=== PATIENT | male | born 1960 | race Caucasian/White ===

== ENCOUNTER 2022-09-13 10:22 | Outpatient (CLI) | payer SELFPAY | END 2022-09-13 10:23 | disposition home or self-care (01) | LOC: AMB 10-01 11:47 | PROVIDERS: Visit Provider Family Medicine | DX: R11.2 Nausea with vomiting, unspecified (principal) | CPT/HCPCS: A0998 ==

== ENCOUNTER 2023-01-08 13:40 | Outpatient (CLI) | payer BC, SELFPAY ==
--- NOTE | 2023-01-08 14:00 | CRLHL7_ITS ---
For Patients: As a result of the Century Cures Act, medical imaging exams and procedure reports are released immediately into your electronic medical record. You may view this report before your referring provider. If you have questions, please contact your health care provider. CLINICAL HISTORY: Renal mass COMPARISON: none TECHNIQUE: Dominguez scale and color Doppler images were acquired of the kidneys and urinary bladder. FINDINGS: There is a persistent irregular masslike area of hypoechoic echotexture involving the lower pole of the right kidney measuring 2.3 cm. No hydronephrosis. This does not represent a simple cyst. Right kidney measures 13.1 cm. Left kidney measures 13.7 cm. Renal cortex is normal. The bladder is normal. The prostate measures 3.8 x 3.7 x 4.1 cm. IMPRESSION: Persistent irregular masslike area of hypoechoic tissue involving the lower pole of the right kidney. Dictated by Bruce Lao MD @ 01/08/2023 3:10:28 PM (Electronically Signed)
== END 2023-01-08 13:41 | disposition home or self-care (01) ==
PROVIDERS: PCP Family Medicine; Visit Provider Urology
DX: N28.89 Other specified disorders of kidney and ureter (principal)
CPT/HCPCS: 76770

== ENCOUNTER 2023-04-09 12:05 | Outpatient (CLI) | payer BC, SELFPAY ==
--- NOTE | 2023-04-09 12:15 | CRLHL7_ITS ---
For Patients: As a result of the Century Cures Act, medical imaging exams and procedure reports are released immediately into your electronic medical record. You may view this report before your referring provider. If you have questions, please contact your health care provider. INDICATION: Malignant tumor of right kidney TECHNIQUE: Ultrasound renal and bladder complete. Dominguez-scale and color Doppler sonographic images of the kidneys and urinary bladder were acquired. COMPARISON: 01/08/2023 renal ultrasound FINDINGS: Right kidney:Normal cortical echogenicity. Stable 2.4 x 1.6 x 1.7 cm mass in the lower pole hilum. No hydronephrosis. 12.9 cm pole to pole. Left kidney:Normal cortical echogenicity. No solid renal mass. No hydronephrosis.12.9 cm pole to pole. Bladder: Incompletely distended and mildly thick walled. IMPRESSION: 1. Stable 2.4 x 1.6 x 1.7 cm right renal mass. Dictated by Domingo Becerra MD @ 04/10/2023 12:54:13 PM (Electronically Signed)
== END 2023-04-09 12:06 | disposition home or self-care (01) ==
LOC: US 12:05
PROVIDERS: PCP Internal Medicine; Visit Provider Urology
DX: C64.9 Malignant neoplasm of unspecified kidney, except renal pelvis (principal)
CPT/HCPCS: 76775

== ENCOUNTER 2023-05-01 15:21 | Outpatient (CLI) | payer BC, SELFPAY | END 2023-05-01 15:22 | disposition home or self-care (01) | LOC: NFLDREF 15:22 | PROVIDERS: PCP Internal Medicine; Visit Provider Internal Medicine | DX: I50.9 Heart failure, unspecified (principal) | CPT/HCPCS: 80048 ==

== ENCOUNTER 2023-06-18 14:02 | Outpatient (CLI) | payer BC, SELFPAY | END 2023-06-18 14:03 | disposition home or self-care (01) | LOC: NFLDREF 14:03 | PROVIDERS: PCP Internal Medicine; Visit Provider Internal Medicine | DX: E11.9 Type 2 diabetes mellitus without complications (principal) | CPT/HCPCS: 80053 ==

== ENCOUNTER 2023-07-04 14:38 | Outpatient (CLI) | payer BC, SELFPAY | END 2023-07-04 14:39 | disposition home or self-care (01) | LOC: NFLDREF 14:39 | PROVIDERS: PCP Internal Medicine; Visit Provider Internal Medicine | DX: I50.22 Chronic systolic (congestive) heart failure (principal); Z13.228 Encounter for screening for other metabolic disorders | CPT/HCPCS: 80048 ==

== ENCOUNTER 2023-07-18 12:52 | Outpatient (CLI) | payer BC, SELFPAY ==
[2023-07-18] MEDS: PERFLUTREN LIPID MICROSPHERES 2 ML VIAL IV (14:00)
== END 2023-07-18 12:53 | disposition home or self-care (01) ==
LOC: RAD 12:53
PROVIDERS: PCP Internal Medicine; Visit Provider Internal Medicine
DX: I50.9 Heart failure, unspecified (principal); I35.1 Nonrheumatic aortic (valve) insufficiency; I51.7 Cardiomegaly
CPT/HCPCS: 93306; Q9957

== ENCOUNTER 2023-09-18 13:42 | Outpatient (CLI) | payer BC, SELFPAY ==
--- OUTSIDE RECORDS SUMMARY | 2023-09-18 13:46 | XMS_ITS | Encounter Summary ---
Author Organization [facility] Address [address] [place] [address] Care Team Providers Care Certified Registered Locksmith Name Role Phone Roopa Almonte MD Unavailable [phone] Maryse Burton PA-C Unavailable Roopa Almonte MD Unavailable [phone] Griffin Joshi MD Unavailable Paula Reza MD Primary Care Provider [phone] Roopa Almonte MD Unavailable [phone] Augustine Callaway MD Unavailable Daylin Ludwig Unavailable Daylin Ludwig Unavailable [phone] Marilin Montaño SAMPLE TESTER GRINDER Unavailable [phone] Esha Dewitt MD Unavailable [phone] Heather Mosquera MD Unavailable [phone] Paula Reza MD Unavailable Esha Dewitt MD Unavailable [phone] Valdo EscamillaC Unavailable [phone] Nohelia Abarca PA-C Unavailable [phone] Heather Mosquera MD Unavailable Fawad York MD Unavailable Reason for Visit * Reason Onset Date Comments Medication Request 10/20/2022 amiodarone (P ACERONE) 200 MG tablet [[id number]] Encounter Details Date Type Department Care Team (Late st Contact Info) Description 10/20/2022 Telephone [facility] [address] [place] [phone] Griffin Joshi MD [address] [facility] [address] [place] [address] Medication Request (/amiodarone (PACERONE) 200 MG tablet [[id number]] /) Social History Tobacco Use Types Packs/Day Years Used Date Smoking Tobacco: Former Cigarettes Q uit: 12/09/2006 Cigars Passive Smoke Exposure: Never Smokeless Tobacco: Never Alcohol Use Standard Drinks/Week Comments Not Currently 0 (1 standard drink = 0.6 oz pur e alcohol) Overall Financial Resource Strain (CARDIA) Answe r Date Recorded How hard is it for you to pa y for the very basics like food, housing, medical care, and heating? Not hard at all 07/29/2021 PHQ-2 Answer Date Recorded PHQ-2 Score 0 10/04/2022 Hunger Vital Sign Answer Date Recorded Within the past 12 months, y ou worried that your food would run out before you got the money to buy more. Never true 07/30/19 22 Within the past 12 months, t he food you bought just didn't last and you didn't have money to get more. Never true 07/29/2021 PRAPARE - Transportation Answer Date Re corded In the past 12 months, has l ack of transportation kept you from medical appointments or from getting medications? No 07/04 In the past 12 months, has l ack of transportation kept you from meetings, work, or from getting things needed for daily living? No 07/29/2021 Sex and Gender Information Value Date Recorded Sex Assigned at Male 09/20/2020 8:37 AM CDT Gender Identity Male 09/20/2020 8:37 AM CDT Sexual Orientation Straight 09/20/2020 8: 37 AM CDT COVID-19 Exposure Response Date Recorded In the last 10 days, have yo u been in contact with someone who was confirmed or suspected to have Coronavirus/COVID-19? No / Unsure 10/12/2022 7:53 AM CDT documented as of this encounter Miscellaneous Notes * Telephone Encounter - Natalia Mendez - 10/20/2022 11:14 AM CDT [facility] Phone Message May a detailed message be left on voicemail: yes Reason for Call: Medication Refill Request Has the patient contacted the pharmacy for the refill? Yes Name of medication being requested: amiodarone (PACERONE) 200 MG tablet [[id number]] Provider who prescribed the medication: Dr Joshi Pharmacy: [id number] - [place], [place] - [address] [place] [address] AT [address] Date medication is needed: 10/24/2022 Action Taken: Other: cardio Travel Screening: Not Applicable Thank you! [facility] documented in this encounter Plan of Treatment Not on file documented as of this encounter Goals Goal Patient Goal Type Associated Problems Recent Progress Patient-Stated? Author Establish Regular Follow-Ups with PCP Care Plan HbA1C Not In Goal No Angelita Pemberton RD Get HbA1C Level in Goal Care Plan HbA1C Not In Goal Angelita Diaz RD Understand diabetes pathophysiology and disease progression Care Plan Diabetes Self-Management Education Needed to Optimize Self-Care Behaviors Angelita Diaz RD Healthy Eating - follow a healthy eating pattern for diabetes Care Plan Diabetes Self-Management Education Needed to Optimize Self-Care Behaviors Angelita Diaz RD Being Active - get regular physical activity, working up to at least 150 minutes per week Care Plan Diabetes Self-Management Education Needed to Optimize Self-Care Behaviors Angelita Diaz RD Monitoring - monitor glucose and ketones as directed Care Plan Diabetes Self-Management Education Needed to Optimize Self-Care Behaviors 90%(03/23/19 23 3:12 PM CONCRETE FLOATER) No Angelita Pemberton RD Note: I will check my blood sugars 3x per day at meal times Taking Medication - patient is consistently taking medications as directed Care Plan Diabetes Self-Management Education Needed to Optimize Self-Care Behaviors Angelita Diaz RD Note: Reviewed importance of following plan for insulin so we can make adjustments with meds. Problem Solving - know how to prevent and manage short-term diabetes complications Care Plan Diabetes Self-Management Education Needed to Optimize Self-Care Behaviors Angelita Diaz RD Reducing Risks - know how to prevent and treat long-term diabetes complications Care Plan Diabetes Self-Management Education Needed to Optimize Self-Care Behaviors Angelita Diaz RD Healthy Coping - use available resources to cope with the challenges of managing diabetes Care Plan Diabetes Self-Management Education Needed to Optimize Self-Care Behaviors No Angelita Pemberton RD documented as of this encounter Visit Diagnoses Not on filedocumented in this encounter Additional Health Concerns Active Problems Noted Date Diagnosed Date HbA1C Not In Goal 02/23/2022 Diabetes Self-Management Edu cation Needed to Optimize Self-Care Behaviors 02/23/2022 Infection Onset Date Last Indicated Resolved Time ESBL 01/05/2021 01/05/2021 Assessment Noted Time PHQ-9 Depression Total Score: 5 09/05/19 23 2:29 PM CDT documented as of this encounter Care Teams Certified Registered Locksmith Relationship Specialty Start Date End Date Paula Reza MD [address] [id number] PCP - General Internal Medicine 08/05/21 Roopa Almonte MD [address] [address] Endocrinology, Diabetes, and Metabolism 01/19/21 Maryse Burton PAAna MariaC [address] [place] [address] Physician Facility Maintenance Helper Dermatology 04/14/21 Roopa Almonte MD [address] [place] [address] Hospitalist Endocrinology, Diabetes, and Metabolism 05/30/21 Griffin Joshi MD [address] [facility] [address] [place] [address] Cardiovascular Disease 07/25/21 Roopa Almonte MD [address] [place], [place] [address] Assigned Endocrinology Provider 09/10/21 [place] [address] [facility] [address] [place] [address] Assigned Musculoskeletal Provider 10/15/21 04/26/23 Daylin Ludwig [facility] [address] [place] [address] Cardiac Rehabilitation Therapist 05/16/23 Daylin Ludwig [facility] [address] [place] [address] Cardiac Rehabilitation Therapist 06/08/22 06/09/23 Marilin Montaño, SAMPLE TESTER GRINDER [address] [place] [id number] Assigned Heart and Vascular Provider 08/05/22 Esha Dewitt MD [address] [facility] [address] [place], [place] [address] Gastroenterology 09/06/22 Heather Mosquera MD [address] [place] [address] Internal Medicine 09/06/22 Paula Reza MD [address] [place] [address] Assigned PCP 09/09/22 01/05/23 Esha Dewitt MD [address] [facility] [address] [place], [place] [address] Assigned Gastroenterology Provider 09/23/22 Valdo Escamilla PA-C [address] [facility] [facility] [address] [place], [place] [id number] Assigned Neuroscience Provider 09/30/22 Nohelia Abarca PA-C [address] [place], [place] [address] Physician Facility Maintenance Helper Gastroenterology 10/03/22 Heather Mosquera MD [address] [place] [address] Assigned PCP 01/06/23 Fawad York MD [address] [place], [place] [address] Assigned Musculoskeletal Provider 04/27/23 06/25/23 documented as of this encounter
--- OUTSIDE RECORDS SUMMARY | 2023-09-18 13:46 | XMS_ITS | Encounter Summary ---
Author Organization [place] Address [address] [place] [address] Care Team Providers Care Miller First Name Role Phone Roopa Almonte MD Unavailable [phone] Maryse Burton-C Unavailable Roopa Almonte MD Unavailable [phone] Griffin Joshi MD Unavailable Paula Reza MD Primary Care Provider Roopa Almonte MD Unavailable [phone] Augustine Callaway MD Unavailable Daylin Ludwig Unavailable Daylin Ludwig Unavailable [phone] Marilin Montaño OPHTHALMIC SURGICAL ASSISTANT Unavailable [phone] Esha Dewitt MD Unavailable [phone] Heather Mosquera MD Unavailable [phone] Esha Dewitt MD Unavailable [phone] Valdo Escamilla PA-C Unavailable [phone] Nohelia Abarca-C Unavailable Heather Mosquera MD Unavailable Fawad York MD Unavailable Encounter Details Date Type Department Care Team (Late st Contact Info) Description 01/29/2023 MyC Medical Advice [facility] [address] [place] [address] Rina Levin, KASIE Social History Tobacco Use Types Packs/Day Years [...] money to buy more. Never true 07/30/19 Within the past 12 months, t he [...] things needed for daily living? No 07/29/2021 Adolescent Education Answer Date Record ed Getting School Help Needed Not on file 11/24 Sex and Gender Information Value Date Recorded Sex Assigned at Male 09/20/2020 8:37 AM CDT Gender Identity Male 09/20/2020 8:37 AM CDT Sexual Orientation Straight 09/20/2020 8: 37 AM CDT documented as of this encounter Plan of Treatment Not on file documented as of this encounter Goals Goal Patient Goal Type Associated Problems Recent Progress Patient-Stated? Author Establish Regular Follow-Ups with PCP Care Plan HbA1C Not In Goal No Angelita Pemberton, JULIO Get HbA1C Level in Goal Care Plan [...] Education Needed to Optimize Self-Care Behaviors 90%(03/23/19 3:12 PM PAPER RULER) Angelita Diaz RD Note: I will check my blood [...] to Optimize Self-Care Behaviors Angelita Diaz RD documented as of this encounter Visit [...] documented as of this encounter Care Teams Miller First Relationship Specialty Start Date End Date Paula Reza MD [address] [facility] [address] [place] [address] PCP - General Internal Medicine 08/05/21 Roopa Almonte MD [address] [facility] [address] [place] [address] Endocrinology, Diabetes, and Metabolism 01/19/21 Maryse Burton, PAAna MariaC [address] [place] [address] Physician Prenatal Genetic Counselor Dermatology 04/14/21 Roopa Almonte MD [address] [address] Hospitalist Endocrinology, Diabetes, and Metabolism 05/30/21 Griffin Joshi MD [address] [facility] [address] [place] [address] Cardiovascular Disease 07/25/21 Roopa Almonte MD [address] [place] [address] [address] [place], [place] [id number] Assigned Endocrinology Provider 09/10/21 [place] [address] [facility] [address] [place] [address] Assigned Musculoskeletal Provider 10/15/21 04/26/23 Daylin Ludwig EP [facility] [address] [address] Cardiac Rehabilitation Therapist 05/16/23 Daylin Ludwig EP [facility] [address] [address] Cardiac Rehabilitation Therapist 06/08/22 06/09/23 Marilin Montaño, OPHTHALMIC SURGICAL ASSISTANT [address] [place] [address] Assigned Heart and Vascular Provider 08/05/22 Esha Dewitt MD [address] [facility] [address] [place] [address] MD Gastroenterology 09/06/22 Heather Mosquera MD [address] [facility] [address] [place] [address] Internal Medicine 09/06/22 Esha Dewitt MD [address] [address] Assigned Gastroenterology Provider 09/23/22 Valdo Escamilla PA-C [address] [facility] [address] [place] [address] Assigned Neuroscience Provider 09/30/22 Nohelia Abarca PA-C [address] [place] [address] Physician Prenatal Genetic Counselor Gastroenterology 10/03/22 Heather Mosquera MD [address] [facility] [address] [place], [place] [address] Assigned PCP 01/06/23 Fawad York MD [address] [place], [place] [address] Assigned Musculoskeletal Provider 04/27/23 06/25/23 documented as of this encounter
--- OUTSIDE RECORDS SUMMARY | 2023-09-18 13:46 | XMS_ITS ---
Care Plan Created on: September 18, 2023 Mauro Terrell : 1960 Sex: Male Author Organization [place] Address [address] [place] [address] Care Team Providers Care Dye Feeder Name Role Phone Roopa Almonte MD Unavailable [phone] Maryse Burton PA-C Unavailable [phone] Roopa Almonte MD Unavailable [phone] Griffin Joshi MD Unavailable Paula Reza MD Primary Care Provider Roopa Almonte MD Unavailable Daylin Ludwig Unavailable Marilin Montaño LEATHER COVERER Unavailable [phone] Esha Dewitt MD Unavailable [phone] Heather Mosquera MD Unavailable [phone] Esha Dewitt MD Unavailable [phone] Valdo EscamillaC Unavailable [phone] Nohelia Abarca PA-C Unavailable [phone] Heather Mosquera MD Unavailable Active Problems Problem Noted Date Diagnosed Date Renal mass 01/23/2023 Facial droop 07/06/2022 Severe sepsis 07/06/2022 Hypotension, unspecified hypotension type 2022 Nonrheumatic aortic valve stenosis 01/21/2022 Primary osteoarthritis of both hips 10/27/2021 Chronic atrial fibrillation 09/13/2021 Cardiac arrest 04/13/2021 Chronic narcotic dependence 04/13/2021 Left ventricular apical thro mbus following myocardial infarction 03/28/2021 Overview: 1.5 cm apical thrombus noted on 03/28/2021 echo. Chronic combined systolic and diastolic heart fa ilure 03/18/[address] elevation myocardial infarction (STEMI) 02/06/2019 Overview: 02/06/2019: Left anterior descending artery 80% stenosis, Stent placed, on brilinta 90 mg bid for 1 year, also needs to stay on ASA 81 mg. Coronary artery disease invo lving tetlin coronary artery of tetlin heart without angina pectoris 02/06/2019 Primary narcolepsy without cataplexy 07/25/2017 Moderate episode of recurrent major depressive d isorder 02/02/2017 Type 2 diabetes mellitus wit h diabetic nephropathy, with long-term current use of insulin 05/25/2016 ACP (advance care planning) 05/02/2016 Overview: Advance Care Planning 05/02/2016: Receipt of ACP document: Received: invalid HCD document not dated. Document not previously scanned. Validation form completed indicating invalid document. Copy sent to client with information and facilitation resources. Validation form sent to be scanned as notation of invalid document received. Confirmed/documented designated decision maker(s). Added by Crystal Lozada RN Advance Care Planning Liaison with [facility] Microalbuminuria 12/20/2014 Obesity 12/20/2014 Chronic pain 10/27/2014 Overview: Pain clinic Neck pain, low back pain, hip pain and shoulder pain Generalized anxiety disorder 02/19/2014 Overview: Diagnosis updated by automated process. Provider to review and confirm. Ophthalmic migraine 12/05/2011 Benign essential hypertension 01/16/2011 Migraine with aura 04/29/2010 Overview: Problem list name updated by automated process. Provider to review Hyperlipidemia LDL goal <70 01/02/2010 Obstructive sleep apnea 11/01/2009 Low back pain 01/07/2008 Overview: Diagnosis updated by automated process. Provider to review and confirm. Testicular hypofunction 12/03/2006 Overview: Problem list name updated by automated process. Provider to review Sinusitis, chronic 10/15/2006 Overview: Problem list name updated by automated process. Provider to review Cervicalgia 11/24/2003 Insomnia with sleep apnea 10/06/2003 Overview: AUDIO VISUAL PROJECT MANAGER:06/10/2019 SR Esophageal reflux 10/06/2003 Resolved Problems Problem Noted Date Diagnosed Date Resolved Date Status post coronary angiogram 01/23/2022 04/28/2022 Acute encephalopathy 04/13/2021 022 Hematoma of rectus sheath 04/13/2021 Atrial fibrillation 04/13/2021 10/02/19 22 Acute on chronic systolic co ngestive heart failure 03/27/2021 08/14/2021 Chronic right shoulder pain 12/13/2020 02/10/2021 Incomplete tear of right rot ator cuff, unspecified whether traumatic 12/13/2020 02/10/2021 Osteoarthritis of right acro mioclavicular joint 12/13/2020 02/10/2021 Acute left-sided low back pa in with left-sided sciatica 03/31/2019 05/19/2019 Trochanteric bursitis of left hip 03/31/2019 05/19/2019 Left lumbar radiculopathy 05/07/2018 Left-sided low back pain wit h left-sided sciatica 02/27/2018 05/16/2018 Vertigo 12/19/2017 08/05/2021 Migraine 08/16/2017 11/12/2017 Neck pain on right side 08/16/201711/03 Chronic right shoulder pain 08/06/2015 05/24/2017 Persistent disorder of initi ating or maintaining sleep 10/23/2013 05/25/2016 Family history of prostate cancer 01/14/2013 08/05/2021 Pain in joint, shoulder region 05/12/2012 08/05/2021 Acute maxillary sinusitis 10/10/2010 Fatigue 10/10/2010 08/05/2021 Dysthymic disorder 09/06/2010 4 Pain in joint, shoulder region 08/06/2007 09/18/2007 Elbow pain 08/06/2007 08/05/2021 Otalgia 08/19/2004 08/05/2021 Overview: Problem list name updated by automated process. Provider to review Pes planus 08/19/2004 08/05/2021 Overview: Problem list name updated by automated process. Provider to review Obesity 10/06/2003 05/25/2016 Overview: Problem list name updated by automated process. Provider to review Palpitations 09/04/2003 05/25/2016 Depressive disorder, not elsewhere classified 09/06/2009 Additional Health Concerns Active Problems Noted Date Diagnosed Date HbA1C Not In Goal 02/23/2022 Diabetes Self-Management Edu cation Needed to Optimize Self-Care Behaviors 02/23/2022 Infection Onset Date Last Indicated ESBL 01/05/2021 01/05/2021 Goals Goal Patient Goal Type Associated Problems Recent Progress Patient-Stated? Author Establish Regular Follow-Ups with PCP Care Plan HbA1C Not In Goal Angelita Diaz RD Get HbA1C Level in Goal Care [...] to Optimize Self-Care Behaviors 90%(03/23/19 3:12 PM CAD DEVELOPER) Angelita Diaz RD Note: I will check [...] to Optimize Self-Care Behaviors Angelita Diaz RD Interventions Intervention Entry Date Outcome Provide education on when to seek professional counseling 02/23/2022 Discuss methods for coping with stress 02/23/2022 Provide education on benefits of utilizing support systems 02/23/2022 Provide education on the benefits of making appropriate lifestyle changes 02/23/2022 Discuss recognizing feelings about having diabetes 02/23/2022 Provide education on tobacco cessation 02/23/2022 Provide education on recommendations for heart health - lipid levels and goals, blood pressure and goals, and aspirin therapy, if indicated 02/23/2022 Provide education on Hemoglobin A1c - goals and relationship to blood glucose levels 02/23/2022 Provide education on recommended care for dental, eye and foot health 02/23/2022 Provide education on major complications of diabetes, prevention, early diagnostic measures and treatment of complications 02/23/2022 Provide education on when to call a health care provider 02/23/2022 Provide education on how to care for diabetes on sick days 02/23/2022 Provide education on safe travel with diabetes 02/23/2022 Provide education on low blood glucose - causes, signs/symptoms, prevention, treatment, carrying a carbohydrate source at all times, and medical identification 02/23/2022 Provide education on frequency and refill details of medications 02/23/2022 Provide education on insulin and injectable diabetes medications, including administration, storage, site selection and rotation for injection sites 02/23/2022 Provide education on ketone monitoring (when to monitor, frequency, etc.) 02/23/2022 Provide education on continuous glucose monitoring (sensor placement, use of cl or pre fabricator/reader, understanding glucose trends, alerts and alarms, differences between sensor glucose and blood glucose) 02/23/2022 Provide education on blood glucose monitoring (purpose, proper technique, frequency, glucose targets, interpreting results, when to use glucose control solution, sharps disposal) 02/23/2022 Explore community resources including walking groups, assistance programs, and home videos 02/23/2022 Develop physical activity plan with patient 02/23/2022 Discuss barriers to physical activity with patient 02/23/2022 Provide education on relationship of activity to glucose and precautions to take if at risk for low glucose 02/23/2022 Develop individualized healthy eating plan with patient 02/23/2022 Provide education on eating out 02/23/2022 Provide education on heart healthy eating 02/23/2022 Provide education on weight management 02/23/2022 Provide education on portion control and consistency in amount, composition and timing of food intake 02/23/2022 Provide education on diabetes pathophysiology and disease progression specfic to patient's diabetes type 02/23/2022 Discuss diabetes treatment plan with patient 02/23/2022 Refer patient to appropriate extended care steamboat pilot, as needed (Medication Therapy Management, Behavioral Health, Physical Therapy, etc.) 02/23/2022 Educate patient on diabetes education self-management topics 02/23/2022 Discuss schedule for PCP visits with patient 02/23/2022 Discuss with PCP the recommended timing for patient's next follow up visit(s) 02/23/2022 Related Goals and Interventions Goal Associated Intervent ions Establish Regular Follow-Ups with PCP Rosemary márquez schedule for PCP visits with patient; Discuss with PCP the recommended timing for patient's next follow up visit(s) Get HbA1C Level in Goal Discuss diabetes treatment plan with patient; Refer patient to appropriate extended care steamboat pilot, as needed (Medication Therapy Management, Behavioral Health, Physical Therapy, etc.); Educate patient on diabetes education self-management topics Understand diabetes pathophy siology and disease progression Provide education on diabetes pathophysiology and disease progression specfic to patient's diabetes type Healthy Eating - follow a he althy eating pattern for diabetes Develop individualized healthy eating pl an with patient; Provide education on eating out; Provide education on heart healthy eating; Provide education on weight management; Provide education on portion control and consistency in amount, composition and timing of food intake Being Active - get regular p hysical activity, working up to at least 150 minutes per week Explore community resources including walking groups, assistance programs, and home videos; Develop physical activity plan with patient; Discuss barriers to physical activity with patient; Provide education on relationship of activity to glucose and precautions to take if at risk for low glucose Monitoring - monitor glucose and ketones as directed Provide education on ketone monitoring (when to monitor, frequency, etc.); Provide education on continuous glucose monitoring (sensor placement, use of cl or pre fabricator/reader, understanding glucose trends, alerts and alarms, differences between sensor glucose and blood glucose); Provide education on blood glucose monitoring (purpose, proper technique, frequency, glucose targets, interpreting results, when to use glucose control solution, sharps disposal) Taking Medication - patient is consistently taking medications as directed Provide education on frequency and refil l details of medications; Provide education on insulin and injectable diabetes medications, including administration, storage, site selection and rotation for injection sites Problem Solving - know how t o prevent and manage short-term diabetes complications Provide education on when to call a health care provider; Provide education on how to care for diabetes on sick days; Provide education on safe travel with diabetes; Provide education on low blood glucose - causes, signs/symptoms, prevention, treatment, carrying a carbohydrate source at all times, and medical identification Reducing Risks - know how to prevent and treat long-term diabetes complications Provide education on tobacco cessation; Provide education on recommendations for heart health - lipid levels and goals, blood pressure and goals, and aspirin therapy, if indicated; Provide education on Hemoglobin A1c - goals and relationship to blood glucose levels; Provide education on recommended care for dental, eye and foot health; Provide education on major complications of diabetes, prevention, early diagnostic measures and treatment of complications Healthy Coping - use availab le resources to cope with the challenges of managing diabetes Provide education on when to seek professional counseling; Discuss methods for coping with stress; Provide education on benefits of utilizing support systems; Provide education on the benefits of making appropriate lifestyle changes; Discuss recognizing feelings about having diabetes
--- OUTSIDE RECORDS SUMMARY | 2023-09-18 13:46 | XMS_ITS | Referral Summary ---
Author Organization [facility] Address [address] [place] [address] Care Team Providers Care Assistant Art Director Name Role Phone Roopa Almonte MD Unavailable Maryse Burton PA-C Unavailable Roopa Almonte MD Unavailable Griffin Joshi MD Unavailable Paula Reza MD Primary Care Provider Roopa Almonte MD Unavailable Daylin Ludwig Unavailable Marilin Montaño DEV MANAGER Unavailable Esha Dewitt MD Unavailable [phone] Heather Mosquera MD Unavailable Esha Dewitt MD Unavailable [phone] Valdo EscamillaC Unavailable Nohelia Abarca PA-C Unavailable [phone] Heather Mosquera MD Unavailable Allergies Active Allergy Reactions Criticality Noted Date Comments Lamotrigine Er Rash Low 03/26/2012 Lisinopril 07/22/2009 Cough Medications Medication Sig Dispensed Refills Start Date End Date Status DAILY MULTIVITAMIN PO 1 TABLET DAILY Active melatonin 1 MG TABSIndications:Mo derate major depression (H) Take 10 mg by mouth nightly as needed for sleep Purchasing over the counter 11/05/2013 Active diphenhydrAMINE (BENADRYL) 25 MG tablet Take 1-2 tablets (25-50 mg) by mouth every 6 hours as needed for itching or allergies 60 tablet 1 10/06/2016 Active blood glucose (NO BRAND SPECIFIED) test stripIndications:T ype 2 diabetes mellitus with diabetic nephropathy, with long-term current use of insulin (H) Use to test blood sugar 4 times daily or as directed. To accompany: Blood Glucose Monitor Brands: per insurance. 400 each 3 01/09/2019 Active blood glucose calibration (NO BRAND SPECIFIED) solutionIndication s:Type 2 diabetes mellitus with diabetic nephropathy, with long-term current use of insulin (H) Use to calibrate blood glucose monitor as needed as directed. 1 each 01/09/2019 Active gabapentin (NEURONTIN) 300 MG capsuleIndications :Bilateral low back pain with bilateral sciatica, unspecified chronicity Take 3 capsules (900 mg) by mouth 3 times daily 270 capsule 1 09/12/2019 Active tiZANidine (ZANAFLEX) 4 MG tablet 4 mg 3 times daily as needed STATES HE IS TAKING APPROX 3 TABS DAILY WITH THE NORCO 09/23/2019 Active insulin pen needle (BD PEN NEEDLE MICRO U/F) 32G X 6 MM miscellaneousIndic ations:Type 2 diabetes mellitus with diabetic nephropathy, with long-term current use of insulin (H) Use 6 pen needles daily or as directed. 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 If symptoms persist 5 minutes after 1st dose call 911. 25 tablet 1 04/28/2020 Active meclizine (ANTIVERT) 25 MG tabletIndications: Vertigo TAKE 1 TABLET(25 MG) BY MOUTH EVERY 6 HOURS NEEDED FOR DIZZINESS 30 tablet 3 06/04/2020 Active polyethylene glycol (MIRALAX) 17 GM/Dose powder Take 17 g by mouth 2 times daily as needed 03/31/2021 Active albuterol (PROVENTIL) (2.5 MG/3ML) 0.083% neb solutionIndication s:COPD without exacerbation (H) Take 1 vial (2.5 mg) by nebulization every 6 hours as needed for shortness of breath / dyspnea or wheezing 150 mL 1 07/25/2021 Active aspirin (ASA) 81 MG EC tablet Take 1 tablet (81 mg) by mouth daily 10/04/2021 Active metFORMIN (GLUCOPHAGE) 1000 MG tabletIndications: Type 2 diabetes mellitus with diabetic nephropathy, with long-term current use of insulin (H) Take 1 tablet (1,000 mg) by mouth 2 times daily (with meals) 180 tablet 3 01/17/2022 Active furosemide (LASIX) 40 MG tabletIndications: Chronic systolic congestive heart failure (H) Take 1 tablet (40 mg) by mouth daily 180 tablet 1 07/08/2022 Active insulin glargine (BASAGLAR KWIKPEN) 100 UNIT/ML penIndications:Typ e 2 diabetes mellitus with diabetic nephropathy, with long-term current use of insulin (H) ADMINISTER up to 40-50 UNITS in AM only 30 mL 1 08/21/2022 Active sacubitril-valsart an (ENTRESTO) 24-26 MG per tabletIndications: Chronic systolic congestive heart failure (H),HTN, goal below 140/90 Take 1 tablet by mouth 2 times daily 180 tablet 3 08/23/2022 Active esomeprazole (NEXIUM) [address] capsuleIndications :Gastroesophageal reflux disease with esophagitis without hemorrhage TAKE 1 CAPSULE(40 MG) BY MOUTH EVERY MORNING BEFORE BREAKFAST AND 30 TO 60 MINUTES BEFORE EATING 90 capsule 09/28/2022 Active amiodarone (PACERONE) 200 MG tabletIndications: Chronic atrial fibrillation (H) TAKE 1 TABLET(200 MG) BY MOUTH DAILY 90 tablet 3 10/20/2022 Active hydrOXYzine (ATARAX) 25 MG tabletIndications: Generalized anxiety disorder TAKE 1 TABLET(25 MG) BY MOUTH EVERY 6 HOURS NEEDED FOR ANXIETY 60 tablet 1 11/08/2022 Active insulin aspart (NOVOLOG FLEXPEN) 100 UNIT/ML penIndications:Typ e 2 diabetes mellitus with diabetic nephropathy, with long-term current use of insulin (H),Type 2 diabetes mellitus without complication, without long-term current use of insulin (H) INJECT 6-10 UNITS UNDER THE SKIN THREE TIMES DAILY WITH MEALS PLUS CORRECTION SCALE 1 UNITS PER 50> 150. TOTAL DAILY DOSE UP TO 50 UNITS 15 mL 11/27/2022 Active polyethylene glycol (GOLYTELY) 236 g suspensionIndicati ons:Encounter for screening colonoscopy 2 days prior at 5pm, mix and drink half of a jug of Golytely. Drink an 8 oz. glass of Golytely every 15 minutes until half of the jug is gone. Place remainder of Golytely in the refrigerator. 1 day prior at 5 pm, drink the 2nd half of a jug of Golytely bowel prep. 6 hours before your check-in time, drink an 8 oz. glass of Golytely every 15 minutes until half of the 2nd jug of Golytely is gone. Discard remainder of second jug. 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 SR Esophageal reflux 10/06/2003 Resolved Problems Problem [...] 05/25/2016 Depressive disorder, not elsewhere classified 09/06/2009 Immunizations Name Administration Dates Next Due COVID-19 Bivalent 18+ (Moderna) 01/03/2022 COVID-19 Monovalent 18+ (Moderna) 08/05/2021 COVID-19 Monovalent Booster 18+ (Moderna) 03/10/2021 COVID-19 Vaccine (Soha) 05/27/2020 Influenza (H1N1) 03/01/2009 Influenza (IIV3) PF 12/17/2012, 2,12/24/2008, 008,02/05/2007,01/19/2004 Influenza Vaccine 18-64 (Flublok) 01/03/2022,11/2020,11/19/2017 Influenza Vaccine >6 months,quad, PF ,12/10/2018,11/14/2016, 015,02/04/2014 Influenza Vaccine, 6+MO IM (QUADRIVALENT W/PRESERVATIVES) 12/10/2018 Pneumo Conj 13-V (2010&after) 09/01/2014 TDAP Vaccine (Adacel) 05/25/2016,02/15/2006 Social History Tobacco Use Types Packs/Day Years Used Date Smoking Tobacco: Former Cigarettes Q uit: 12/09/2006 Cigars Passive Smoke Exposure: Never Smokeless Tobacco: Never Tobacco Cessation:Counseling Given: Not Answered Alcohol Use Standard Drinks/Week Comments Not Currently [...] Orientation Straight 09/20/2020 8: 37 AM CDT Last Filed Vital Signs Vital Sign Reading Time Taken Comments Blood Pressure 123/70 02/14/2023 1:45 PM MANAGER OF MEDICAL Pulse 80 02/14/2023 1:45 PM MANAGER OF MEDICAL Temperature 36.8 ??C (98.3 ??F) 07/08/2022 7:41 AM CD T Respiratory Rate 20 02/14/2023 1:45 PM MANAGER OF MEDICAL Oxygen Saturation 94% 02/14/2023 1:45 PM MANAGER OF MEDICAL Inhaled Oxygen Concentration - - Weight 117.9 kg (260 lb) 10/04/2022 3:58 PM CDT Height 180.3 cm (5' 11) 09/25/2022 1:39 PM CDT Body Mass Index 36.26 09/25/2022 1:39 PM CDT Plan of Treatment Not on file Goals Goal Patient Goal Type Associated Problems Recent Progress Patient-Stated? Author Establish Regular Follow-Ups with PCP Care Plan HbA1C Not In Goal No Angelita Pemberton RD Get HbA1C Level in Goal Care Plan HbA1C Not In Goal Angelita Diaz RD Understand diabetes pathophysiology and disease progression Care Plan Diabetes Self-Management Education Needed to Optimize Self-Care Behaviors Angeliat Diaz RD Healthy Eating - follow a healthy eating pattern for diabetes Care Plan Diabetes Self-Management Education Needed to Optimize Self-Care Behaviors Angelita Diaz RD Being Active - get regular physical activity, working up to at least 150 minutes per week Care Plan Diabetes Self-Management Education Needed to Optimize Self-Care Behaviors No Angelita Pemberton RD Monitoring - monitor glucose and ketones as directed Care Plan Diabetes Self-Management Education Needed to Optimize Self-Care Behaviors 90%(03/23/19 23 3:12 PM MANAGER OF MEDICAL) Angelita Diaz RD Note: I will check [...] Optimize Self-Care Behaviors No Angelita Pemberton RD Medical Devices Implanted Type Area District Attorney Device Identifier Shelf Expiration Date Model / Serial / Lot Medtronic I* [id number] Xt Hf Quad Flying Squad Worker-D Mri [id number] Implanted:03/17 (Quantity not on file) ICD [employer] [id number] OBALT XT HF QUAD BATON TWIRLER-D MRI / [id number] / Medtronic I* 4298 Attain Performa Mri Surescan [id number] Implanted:03/17 (Quantity not on file) Leads [employer] 4298 CLAUDY IN PERFORMA MRI SURESCAN / [id number] / Medtronic I* 5076 Capsurefix Novus [id number] Implanted:03/17 (Quantity not on file) Leads [employer] 5076 CAPS UREFIX NOVUS / [id number] / Medtronic I* 6935 Sprint Quattro Secure S [id number] Implanted:03/17 (Quantity not on file) Leads [employer] 6935 SPRI NT QUATTRO SECURE S / [id number] / Procedures Procedure Name Priority Date/Time Associated Diagnosis Comments CBC WITH PLATELETS STAT 02/14/2023 10 :[address] CHEST/ABDOMEN/PELVIS W CONTRAST Routine 12/29/2022 10:23 AM CDT BASIC METABOLIC PANEL Routine 07/08/2022 7:24 AM CDT COMPREHENSIVE METABOLIC PANEL Routine 07/07/2022 10:33 AM CDT EYE EXAM - HIM SCAN 04/13/2022 1 2:00 AM MANAGER OF MEDICAL LIPID PROFILE Routine 02/15/2022 10:03 AM MANAGER OF MEDICAL Chronic systolic congestive heart failure (H) HTN, goal below 140/90 COLOGUARD([employer]) Routine 01/24/2022 12:00 PM MANAGER OF MEDICAL Screen for colon cancer HEMOGLOBIN A1C Routine 01/10/2022 9:45 AM MANAGER OF MEDICAL Type 2 diabetes mellitus with diabetic nephropathy, with long-term current use of insulin (H) TSH WITH FREE T4 REFLEX Routine 10/03/2021 8:11 AM CDT 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) ALBUMIN RANDOM URINE QUANTITATIVE Routine 07/13/2021 4:09 PM CDT Type 2 diabetes mellitus with diabetic nephropathy, with long-term current use of insulin (H) Acute on chronic systolic congestive heart failure (H) HIV ANTIGEN ANTIBODY COMBO Routine 06/04/2020 2:43 PM CDT Screening for HIV (human immunodeficiency virus) HEPATITIS C SCREEN REFLEX TO HCV RNA QUANT AND GENOTYPE Routine 06/04/2020 2:43 PM CDT Need for hepatitis C screening test PHQ-9 DEPRESSION SCREENING ORDER Routine 05/01/2018 FECAL COLORECTAL CANCER SCREEN FIT Routine 10/05/2016 10:45 AM CDT Colon cancer screening C FOOT EXAM Routine 12/09/2013 8:00 AM CDT Pain in joint, shoulder region, right from Last 3 Months or Most Recently Relevant to Health Maintenance Results * (ABNORMAL) CBC with platelets (02/14/2023 10:20 AM MANAGER OF MEDICAL) WBC Count 10.9 4.0 - 11.0 10e3/uL 02/14/2023 10:33 AM MANAGER OF MEDICAL [facility] RBC Count 4.72 4.40 - 5.90 10e6/uL 02/14/2023 10:33 AM MANAGER OF MEDICAL [facility] Hemoglobin 10.4(L) 13.3 - 17.7 g/dL 02/14/2023 10:33 AM MANAGER OF MEDICAL [facility] Hematocrit 34.3(L) 40.0 - 53.0 % 02/14/2023 10:33 AM MANAGER OF MEDICAL [facility] MCV 73(L) 78 - 100 fL 02/14/2023 10:33 AM MANAGER OF MEDICAL [facility] MCH 22.0(L) 26.5 - 33.0 pg 02/14/2023 10:33 AM MANAGER OF MEDICAL LABORATORY MCHC 30.3(L) 31.5 - 36.5 g/dL 02/14/2023 10:33 AM MANAGER OF MEDICAL LABORATORY RDW 16.5(H) 10.0 - 15.0 % 02/14/2023 10:33 AM MANAGER OF MEDICAL [facility] Platelet Count 400 150 - 450 10e3/uL 02/14/2023 10:33 AM MANAGER OF MEDICAL LABORATORY Blood BLOOD SPECIMEN / Unknown Intraosseous / Unknown 02/14/2023 10:20 AM MANAGER OF MEDICAL 02/14/2023 10:29 AM MANAGER OF MEDICAL Susannahgiorgio Mitchell [facility] POWER GENERATION ENGINEER DEV MANAGER LAB - BLOOD ORDERABLES [facility] Lab [address] [facility] Lab (1st floor, no room number) [place] [address], [facility] [phone] * (ABNORMAL) Basic metabolic panel (07/08/2022 7:24 AM CDT) Sodium 137 136 - 145 mmol/L 07/08/2022 7:53 AM CDT [facility] Potassium 4.2 3.4 - 5.3 mmol/L 07/08/2022 7:53 AM CDT LABORATORY Chloride 105 98 - 107 mmol/L 07/08/2022 7:53 AM CDT LABORATORY Carbon Dioxide (CO2) 23 22 - 29 mmol/L 07/08/2022 7:53 AM CDT LABORATORY Anion Gap 9 7 - 15 mmol/L 07/08/2022 7:53 AM CDT LABORATORY Urea Nitrogen 8.5 8.0 - 23.0 mg/dL 07/08/2022 7:53 AM CDT LABORATORY Creatinine 0.72 0.67 - 1.17 mg/dL 07/08/2022 7:53 AM CDT LABORATORY Calcium 8.5(L) 8.8 - 10.2 mg/dL 07/08/2022 7:53 AM CDT LABORATORY Glucose 141(H) 70 - 99 mg/dL 07/08/2022 7:53 AM CDT LABORATORY GFR Estimate >90 >60 mL/min/1.7 3m2 07/08/2022 7:53 AM CDT LABORATORY Comment:eGFR calculated usin 2020 CKD-EPI equation. Blood STRUCTURE OF RIGHT UPPER LIMB / Unknown Venipuncture / Unknown 07/08/2022 7:24 AM CDT 07/08/2022 7:32 AM CDT Meir Lovell MD LAB - BLOOD DENISA AREVALO [facility] Organization Address City/State/ZIP Co de Phone Number LABORATORY [facility] Acute Care Lab [address] [facility] Lab (1st floor, no room number) [place] [address] [phone] * (ABNORMAL) Comprehensive metabolic panel (07/07/2022 10:33 AM CDT) Sodium 135(L) 136 - 145 mmol/L 07/07/2022 10:59 AM CDT LABORATORY Potassium 4.0 3.4 - 5.3 mmol/L 07/07/2022 10:59 AM CDT LABORATORY Chloride 104 98 - 107 mmol/L 07/07/2022 10:59 AM CDT LABORATORY Carbon Dioxide (CO2) 23 22 - 29 mmol/L 07/07/2022 10:59 AM CDT LABORATORY Anion Gap 8 7 - 15 mmol/L 07/07/2022 10:59 AM CDT LABORATORY Urea Nitrogen 15.0 8.0 - 23.0 mg/dL 07/07/2022 10:59 AM CDT LABORATORY Creatinine 0.80 0.67 - 1.17 mg/dL 07/07/2022 10:59 AM CDT LABORATORY Calcium 8.2(L) 8.8 - 10.2 mg/dL 07/07/2022 10:59 AM CDT LABORATORY Glucose 162(H) 70 - 99 mg/dL 07/07/2022 10:59 AM CDT LABORATORY Alkaline Phosphatase 60 40 - 129 U/L 07/07/2022 10:59 AM CDT LABORATORY AST 22 10 - 50 U/L 07/07/2022 10:59 AM CDT LABORATORY ALT 21 10 - 50 U/L 07/07/2022 10:59 AM CDT LABORATORY Protein Total 5.7(L) 6.4 - 8.3 g/dL 07/07/2022 10:59 AM CDT LABORATORY Albumin 3.0(L) 3.5 - 5.2 g/dL 07/07/2022 10:59 AM CDT LABORATORY Bilirubin Total 0.2 <=1.2 mg/dL 07/07/2022 10:59 AM CDT LABORATORY GFR Estimate >90 >60 mL/min/1.7 3m2 07/07/2022 10:59 AM CDT LABORATORY Comment:eGFR calculated usin g 2020 CKD-EPI equation. Blood STRUCTURE OF RIGHT HAND / Unknown Venipuncture / Unknown 07/07/2022 10:33 AM CDT 07/07/2022 10:41 AM CDT Luis Alcaraz MD LAB - BLOOD ORDERABL ES LABORATORY [facility] Acute Care Lab [address] Lab (1st floor, no room number) [place] [address], [facility] [phone] * (ABNORMAL) EYE EXAM - HIM SCAN (04/13/2022 12:00 AM MANAGER OF MEDICAL) RETINOPATHY POSITIVE(A ) 04/13/2022 Provider Outside OTHER * (ABNORMAL) Lipid Profile (02/15/2022 10:03 AM MANAGER OF MEDICAL) Cholesterol 178 <200 mg/dL 02/15/2022 3:56 PM MANAGER OF MEDICAL [facility] Triglycerides 285(H) <150 mg/dL 02/15/2022 3:56 PM MANAGER OF MEDICAL [facility] Direct Measure HDL 34(L) >=40 mg/dL 02/15/2022 3:56 PM MANAGER OF MEDICAL [facility] LDL Cholesterol Calculated 87 <=100 mg/dL 02/15/2022 3:56 PM MANAGER OF MEDICAL [facility] Non HDL Cholesterol 144(H) <130 mg/dL 02/15/2022 3:56 PM MANAGER OF MEDICAL [facility] Blood STRUCTURE OF RIGHT UPPER LIMB / Unknown Venipuncture / Unknown 02/15/2022 10:03 AM MANAGER OF MEDICAL 02/15/2022 10:03 AM MANAGER OF MEDICAL Narrative [facility] - 02/15/2022 3:56 PM MANAGER OF MEDICAL Cholesterol Desirable: ??<200 mg/dL Triglycerides Normal: ??Less than 150 mg/dL Borderline High: ??150-199 mg/dL High: ??200-499 mg/dL Very High: ??Greater than or equal to 500 mg/dL Direct Measure HDL Female: ??Greater than or equal to 50 mg/dL Male: ??Greater than or equal to 40 mg/dL LDL Cholesterol Desirable: ??<100mg/dL Above Desirable: ??100-129 mg/dL Borderline High: ??130-159 mg/dL High: ??160-189 mg/dL Very High: ??>= 190 mg/dL Non HDL Cholesterol Desirable: ??130 mg/dL Above Desirable: ??130-159 mg/dL Borderline High: ??160-189 mg/dL High: ??190-219 mg/dL Very High: ??Greater than or equal to 220 mg/dL Keerthi Miner APRN DEV MANAGER LAB - BLOOD ORDERABLES [facility] Core Lab [address] [facility] [place] [address], [facility] [phone] * (ABNORMAL) COLOGUARD([employer]) (01/24/2022 12:00 PM MANAGER OF MEDICAL) COLOGUARD-ABSTRAC T Positive( A) Negative 01/29/2022 7:20 AM MANAGER OF MEDICAL [facility] (CLIA #:[id number]) Comment: POSITIVE TEST RESULT. A positive Cologuard result should be followed with a colonoscopy or visual examination of the colon. The normal value (reference range) for this assay is negative. TEST DESCRIPTION: Composite algorithmic analysis of stool DNA-biomarkers with hemoglobin immunoassay. ?? Quantitative values of individual biomarkers are not reportable and are not associated with individual biomarker result reference ranges. Cologuard is intended for colorectal cancer screening of adults of either sex, 45 years or older, who are at average-risk for colorectal cancer (CRC). Cologuard has been approved for use by the U.S. FDA. The performance of Cologuard was established in a cross sectional study of average-risk adults aged 50-84. Cologuard performance in patients ages 45 to 49 years was estimated by sub-group analysis of near-age groups. Colonoscopies performed for a positive result may find as the most clinically significant lesion: colorectal cancer [4.0%], advanced adenoma (including sessile serrated polyps greater than or equal to 1cm diameter) [20%] or non- advanced adenoma [31%]; or no colorectal neoplasia [45%]. These estimates are derived from a prospective cross-sectional screening study of 10,000 individuals at average risk for colorectal cancer who were screened with both Cologuard and colonoscopy. (Chelo Gilmore. et al, N Engl J Med 2014;370(14):3213-1800.) Cologuard may produce a false negative or false positive result (no colorectal cancer or precancerous polyp present at colonoscopy follow up). A negative Cologuard test result does not guarantee the absence of CRC or advanced adenoma (pre-cancer). The current Cologuard screening interval is every 3 years. ([place] [employer] and U.S. Multi-Society Task Force). Cologuard performance data in a 10,000 patient pivotal study using colonoscopy as the reference method can be accessed at the following location: [email or web address]. Additional description of the Cologuard test process, warnings and precautions can be found at [email or web address]. Stool specimen (specimen) 01/24/2022 12:00 PM MANAGER OF MEDICAL 01/25/2022 1:01 PM MANAGER OF MEDICAL Paula Reza MD LABORATORY Performing Organization Address City/[facility]/ZIP Co de Phone Number [facility] [address] [phone] [facility] (CLIA #:[id number]) [address] [place] [address] * (ABNORMAL) Hemoglobin A1c (01/10/2022 9:45 AM MANAGER OF MEDICAL) Hemoglobin A1C 8.9(H) 0.0 - 5.6 % 01/10/2022 9:52 AM MANAGER OF MEDICAL [facility] Comment: Normal <5.7% Prediabetes 5.7-6.4% ?? Diabetes 6.5% or higher Note: Adopted from ADA consensus guidelines. Blood STRUCTURE OF RIGHT UPPER LIMB / Unknown Venipuncture / Unknown 01/10/2022 9:45 AM MANAGER OF MEDICAL 01/10/2022 9:45 AM MANAGER OF MEDICAL Narrative [facility] - 01/10/2022 9:52 AM MANAGER OF MEDICAL Reviewed, ok with previous. Roopa Almonte MD LAB - BLOOD ORDER KEVIN [facility] Lab [address] [facility], [address] [place] [address], [place] [phone] * TSH with free T4 reflex (10/03/2021 8:11 AM CDT) TSH 2.97 0.30 - 4.20 uIU/mL 10/03/2021 8:58 AM CDT [facility] Blood STRUCTURE OF RIGHT UPPER LIMB / Unknown Venipuncture / Unknown 10/03/2021 8:11 AM CDT 10/03/2021 8:13 AM CDT Keerthi Miner DUANE DEV MANAGER LAB - BLOOD ORDERABLES [facility]AT[facility] Acute Care Lab [address] Lab (1st floor, no room number) [place] [address], [facility] [phone] * Albumin Random Urine Quantitative with Creat Ratio (07/13/2021 4:09 PM CDT) Creatinine Urine mg/dL 52 mg/dL 07/14/2021 3:09 PM CDT [facility] Albumin Urine mg/L <5 mg/L 07/14/2021 3:09 PM CDT [facility] Albumin Urine mg/g Cr 07/14/2021 3:09 PM CDT [facility] Comment:Unable to calculate: ??Urine creatinine or albumin value below detectable level Urine URINE SPECIMEN / Unknown Non-blood Collection / Unknown 07/13/2021 4:09 PM CDT 07/13/2021 4:09 PM CDT Vesta Aguayo PA-C LAB - URINE ORDERA BLES [facility]X LABORATORY [facility] Lab [address] Lab (no room number, 1st floor of clinic) [place] [address], [facility] [phone] * HIV Antigen Antibody Combo (06/04/2020 2:43 PM CDT) HIV Antigen Antibody Combo Nonreactive NR^Nonrea ctive 06/04/2020 8:30 PM CDT [facility] Comment:HIV-1 p24 Ag & HIV-1 /HIV-2 Ab Not Detected Blood 06/04/2020 2:43 PM CDT 06/04/2020 2:44 PM CDT Shahida Sutton APRN, CNP LAB - BLOOD ORDERABLES Performing Organization Address City/[facility]/ZIP Co de Phone Number [address] [address] * Hepatitis C Screen Reflex to HCV RNA Quant and Genotype (06/04/2020 2:43 PM CDT) Hepatitis C Antibody Nonreactive NR^Nonre active 06/04/2020 8:38 PM CDT [facility] Comment: Assay performance characteristics have not been established for newborns, infants, and children Blood 06/04/2020 2:43 PM CDT 06/04/2020 2:44 PM CDT Shahida Sutton APRN, CNP LAB - BLOOD ORDERABLES Performing Organization Address [facility] Co de Phone Number [address] [address] * PHQ-9 DEPRESSION SCREENING ORDER (05/01/2018) PHQ9 SCORE 5 Narrative Pelon Crowe - 05/01/2018 [facility] PROGRESS NOTE Provider Outside OTHER * Fecal colorectal cancer screen (FIT) (10/05/2016 10:45 AM CDT) Occult Blood Scn FIT Negative NEG [facility] Stool specimen (specimen) 10/05/2016 10:45 AM CDT 10/11/2016 11:00 AM CDT Shahida Sutton APRN, CNP LAB - STOOL S ORDERABLES Performing Organization Address City/[facility]/ZIP Co de Phone Number [facility] [address] [place] [address] from Last 3 Months or Most Recently Relevant to Health Maintenance Additional Health Concerns Active Problems Noted Date Diagnosed Date HbA1C Not In Goal 02/23/2022 Diabetes Self-Management Edu cation Needed to Optimize Self-Care Behaviors 02/23/2022 Infection Onset Date Last Indicated ESBL 01/05/2021 01/05/2021 Advance Directives For more information, please contact: [phone] * Full Code (Latest Code Status on File) Date Activated Date Inactivated Comments 07/08/2022 11:25 AM 02/14/2023 9:39 AM Question Answer Comments Code status determined by: Discussion with walt jung/ legal decision maker * Full Code Date Activated Date Inactivated Comments 07/06/2022 8:19 PM 07/08/2022 11:25 AM All basic and advanced life-sustaining interventions are performed as appropriate Question Answer Comments Code status determined by: Discussion with walt jung/ legal decision maker Care Teams Assistant Art Director Relationship Specialty Start Date End Date Paula Reza MD [address] [facility] 200 [place] [address] PCP - General Internal Medicine 08/05/21 Roopa Almonte MD [address] [facility] [address] [place] [address] Endocrinology, Diabetes, and Metabolism 01/19/21 Maryse Burton PA-C [address] [place] [address] Physician Marketing Planning Manager Dermatology 04/14/21 Roopa Almonte MD [address] [facility] 200 [place] [address] Hospitalist Endocrinology, Diabetes, and Metabolism 05/30/21 Griffin Joshi MD [address] [facility] [address] [place], [place] [address] Cardiovascular Disease 07/25/21 Roopa Almonte MD [address] [place], [place] [address] Assigned Endocrinology Provider 09/10/21 Daylin Ludwig EP [facility] [address] [place], [place] [address] Cardiac Rehabilitation Therapist 05/16/23 Marilin Montaño, DEV MANAGER [address] [place] [address] Assigned Heart and Vascular Provider 08/05/22 Esha Dewitt MD 420 [facility] 36 [place], [place] [address] Gastroenterology 09/06/22 Heather Mosquera MD [address] [facility] [address] [facility] 150 [place] [address] Internal Medicine 09/06/22 Esha Dewitt MD 420 [facility] 36 [place] [address] Assigned Gastroenterology Provider 09/23/22 Valdo Escamilla PA-C 6363 [facility] 103 [place] [address] Assigned Neuroscience Provider 09/30/22 Nohelia Abarca PA-C 2450 [facility] [place] [address] Physician Marketing Planning Manager Gastroenterology 10/03/22 Heather Mosquera MD 6545 [facility] 150 [place] [address] Assigned PCP 01/06/23
--- OUTSIDE RECORDS SUMMARY | 2023-09-18 13:46 | XMS_ITS | Encounter Summary ---
Author Organization [facility] Address [address] [place] [address] Care Team Providers Care Social Services Technician Name Role Phone Roopa Almonte MD Unavailable [phone] Maryse Burton PA-C Unavailable Roopa Almonte MD Unavailable [phone] Griffin Joshi MD Unavailable Paula Reza MD Primary Care Provider [phone] Roopa Almonte MD Unavailable [phone] Augustine Callaway MD Unavailable Daylin Ludwig Unavailable Daylin Ludwig Unavailable [phone] Marilin Montaño BILINGUAL SALES REPRESENTATIVE Unavailable [phone] Esha Dewitt MD Unavailable [phone] Heather Mosquera MD Unavailable [phone] Paula Reza MD Unavailable Esha Dewitt MD Unavailable [phone] Vlado EscamillaC Unavailable [phone] Nohelia Abarca PA-C Unavailable [phone] Heather Mosquera MD Unavailable [phone] Fawad York MD Unavailable [phone] Encounter Details Date Type Department Care Team (Late st Contact Info) Description 10/19/2022 MyC Medical Advice [facility] [address] 4th [place] [address] Paz Zavala, RN Social History Tobacco Use Types Packs/Day Years [...] to Optimize Self-Care Behaviors 90%(03/23/19 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) Angelita Diaz RD Note: I will check my blood sugars 3x per day at meal times Taking Medication - patient is consistently taking medications as directed Care Plan Diabetes Self-Management Education Needed to Optimize Self-Care Behaviors Angeilta Diaz RD Note: Reviewed importance of following [...] Noted Time PHQ-9 Depression Total Score: 5 07/03/20 23 2:29 PM CDT documented as of this encounter Care Teams Social Services Technician Relationship Specialty Start Date End Date Paula Reza MD [address] [facility] 200 [place] [address] PCP - General Internal Medicine 08/05/21 Roopa Almonte MD [address] [facility] 200 [place] [address] Endocrinology, Diabetes, and Metabolism 01/19/21 Maryse Burton PA-C [address] [place], [place] [address] Physician Coil Inspector Dermatology 04/14/21 Roopa Almonte MD [address] [facility] 200 [place] [address] Hospitalist Endocrinology, Diabetes, and Metabolism 05/30/21 Griffin Joshi MD [address] [facility] [address] [place] [address] Cardiovascular Disease 07/25/21 Roopa Almonte MD [address] [facility] 200 [place], [place] [address] Assigned Endocrinology Provider 09/10/21 [place] [address] [facility] 300 [place] [address] Assigned Musculoskeletal Provider 10/15/21 04/26/23 Daylin Ludwig EP [facility] [address] [place] [address] Cardiac Rehabilitation Therapist 05/16/23 Daylin Ludwig EP [facility] [address] [place] [address] Cardiac Rehabilitation Therapist 06/08/22 06/09/23 Marilin Montaño, BILINGUAL SALES REPRESENTATIVE [address] [place] [address] Assigned Heart and Vascular Provider 08/05/22 Esha Dewitt MD 420 [facility] 36 [place], [place] [address] MD Gastroenterology 09/06/22 Heather Mosquera MD [address] [place] [address] Internal Medicine 09/06/22 Paula Reza MD [address] [facility] 200 [place] [address] Assigned PCP 09/09/22 01/05/23 Esha Dewitt MD 420 [facility] 36 [place] [address] Assigned Gastroenterology Provider 09/23/22 Valdo Escamilla PA-C [address] [place], [place] [address] Assigned Neuroscience Provider 09/30/22 Nohelia Abarca PA-C [address] [place], [place] [address] Physician Coil Inspector Gastroenterology 10/03/22 Heather Mosquera MD [address] [address] Assigned PCP 01/06/23 Fawad York MD 9 [place] [address] Assigned Musculoskeletal Provider 04/27/23 06/25/23 documented as of this encounter
--- OUTSIDE RECORDS SUMMARY | 2023-09-18 13:46 | XMS_ITS | Encounter Summary ---
Author Organization [facility] Address [address] [place] [address] Care Team Providers Care Plate Grainer Name Role Phone Roopa Almonte MD Unavailable [phone] Maryse Burton PA-C Unavailable Roopa Almonte MD Unavailable [phone] Griffin Joshi MD Unavailable Paula Reza MD Primary Care Provider [phone] Roopa Almonte MD Unavailable [phone] Augustine Callaway MD Unavailable Daylin Ludwig Unavailable Daylin Ludwig Unavailable [phone] Marilin Motnaño SCALPER OPERATOR Unavailable [phone] Esha Dewitt MD Unavailable [phone] Heather Mosquera MD Unavailable [phone] Paula Reza MD Unavailable Esha Dewitt MD Unavailable [phone] Valdo EscamillaC Unavailable [phone] Nohelia Abarca PA-C Unavailable [phone] Heather Mosquera MD Unavailable Fawad York MD Unavailable Encounter Details Date Type Department Care Team (Late st Contact Info) Description 11/20/2022 MyC Medical Advice [facility] Heart Care [address] [facility] [address] [place] [address] Karmen Nicolas, RN Social History Tobacco Use Types Packs/Day [...] Optimize Self-Care Behaviors 90%(03/23/19 23 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) Angelita Diaz RD Note: I will check [...] documented as of this encounter Care Teams Plate Grainer Relationship Specialty Start Date End Date Paula Reza MD [address] [facility] 200 [place], [place] [address] PCP - General Internal Medicine 08/05/21 Roopa Almonte MD [address] [facility] 200 [place] [address] Endocrinology, Diabetes, and Metabolism 01/19/21 Maryse Burton PA-C [address] [place] [address] Physician Pallet Sorter Dermatology 04/14/21 Roopa Almonte MD [address] [facility] 200 [place] [address] Hospitalist Endocrinology, Diabetes, and Metabolism 05/30/21 Griffin Joshi MD [address] [facility] [address] [place] [address] Cardiovascular Disease 07/25/21 Roopa Almonte MD [address] [facility] 200 [place], [place] [address] Assigned Endocrinology Provider 09/10/21 [place] [address] [facility] 300 [place] [address] Assigned Musculoskeletal Provider 10/15/21 04/26/23 Daylin Ludwig EP [facility] [address] [place] [address] Cardiac Rehabilitation Therapist 05/16/23 Daylin Ludwig EP [facility] [address] [place] [address] Cardiac Rehabilitation Therapist 06/08/22 06/09/23 Marilin Montaño CNP [address] [place] [address] Assigned Heart and Vascular Provider 08/05/22 Esha Dewitt MD 420 [facility] 36 [place] [address] MD Gastroenterology 09/06/22 Heather Mosquera MD [address] [place] [address] Internal Medicine 09/06/22 Paula Reza MD [address] [place], [place] [address] Assigned PCP 09/09/22 01/05/23 Esha Dewitt MD 420 [facility] 36 [place] [address] Assigned Gastroenterology Provider 09/23/22 Valdo Escamilla PA-C [address] [place] [address] Assigned Neuroscience Provider 09/30/22 Nohelia Abarca PA-C [address] [address] Physician Pallet Sorter Gastroenterology 10/03/22 Heather Mosquera MD [address] [facility] [address] [place] [address] Assigned PCP 01/06/23 Fawad York MD 9 [place] [address] Assigned Musculoskeletal Provider 04/27/23 06/25/23 documented as of this encounter
--- OUTSIDE RECORDS SUMMARY | 2023-09-18 13:46 | XMS_ITS | Encounter Summary ---
Author Organization [place] Address [address] [place] [address] Care Team Providers Care Cad Intern Name Role Phone Roopa Almonte MD Unavailable [phone] Maryse Burton-C Unavailable Roopa Almonte MD Unavailable [phone] Griffin Joshi MD Unavailable Paula Reza MD Primary Care Provider Roopa Almonte MD Unavailable [phone] Augustine Callaway MD Unavailable Daylin Ludwig Unavailable Daylin Ludwig Unavailable [phone] Marilin Montaño MANAGER OF [employer]IRES SALES Unavailable [phone] Esha Dewitt MD Unavailable [phone] Heather Mosquera MD Unavailable [phone] Esha Dewitt MD Unavailable [phone] Valdo Escamilla PA-C Unavailable [phone] Nohelia Abarca-C Unavailable Heather Mosquera MD Unavailable Fawad York MD Unavailable Encounter Details Date Type Department Care Team (Late st Contact Info) Description 01/29/2023 MyC Medical Advice [facility] Gastroenterology Clinic [address] 4th [place] [address] Rina Levin, KASIE Social History [...] to Optimize Self-Care Behaviors 90%(03/23/19 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 200 [place] [address] PCP - General Internal Medicine 08/05/21 Roopa Almonte MD [address] [facility] 200 [place] [address] Endocrinology, Diabetes, and Metabolism 01/19/21 Maryse Burton, PAAna MariaC 5200 [place] [address] Physician Seed Pelleter Dermatology 04/14/21 Roopa Almonte MD [address] [address] Hospitalist Endocrinology, Diabetes, and Metabolism 05/30/21 Griffin Johsi MD 6405 [facility] [address] [place] [address] Cardiovascular Disease 07/25/21 Roopa Almonte MD [address] [place] [address] 200 [place], [place] [address] Assigned Endocrinology Provider 09/10/21 [place] [address] [facility] 300 [place] [address] Assigned Musculoskeletal Provider 10/15/21 04/26/23 Daylin Ludwig EP [facility] [address] [place] [address] Cardiac Rehabilitation Therapist 05/16/23 Daylin Ludwig EP [facility] [address] [place] [address] Cardiac Rehabilitation Therapist 06/08/22 06/09/23 Marilin Montaño, MANAGER OF [employer]IRES SALES 6405 [place] [address] Assigned Heart and Vascular Provider 08/05/22 Esha Dewitt MD 420 [facility] 36 [place] [address] MD Gastroenterology 09/06/22 Heather Mosquera MD 6545 [facility] 150 [place] [address] Internal Medicine 09/06/22 Esha Dewitt MD [address] [address] Assigned Gastroenterology Provider 09/23/22 Valdo Escamilla PA-C 6363 [facility] 103 [place] [address] Assigned Neuroscience Provider 09/30/22 Nohelia Abarca PA-C 2450 [place] [address] Physician Seed Pelleter Gastroenterology 10/03/22 Heather Mosquera MD [address] [facility] [address] [facility] 150 [place], [place] [address] Assigned PCP 01/06/23 Fawad York MD 909 [place], [place] [address] Assigned Musculoskeletal Provider 04/27/23 06/25/23 documented as of this encounter
--- OUTSIDE RECORDS SUMMARY | 2023-09-18 13:46 | XMS_ITS | Clinical Summary ---
Author Organization [place] Address [address] [place] [address] Care Team Providers Care Property Maintenance Technician Name Role Phone Roopa Almonte MD Unavailable Maryse Burton PA-C Unavailable Roopa Almonte MD Unavailable Griffin Joshi MD Unavailable Paula Reza MD Primary Care Provider Roopa Almonte MD Unavailable Daylin Ludwig Unavailable Marilin Montaño [employer]ALS Unavailable Esha Dewitt MD Unavailable [phone] Heather Mosquera MD Unavailable [phone] Esha Dewitt MD Unavailable [phone] Valdo EscamillaC Unavailable Nohelia Abarca PA-C Unavailable [phone] Heather Mosquera MD Unavailable Allergies Active [...] MG sublingual tabletIndications: Coronary artery disease involving [place] coronary artery of [place] heart without angina pectoris For chest pain [...] 75 MG tabletIndications: Coronary artery disease involving [place] coronary artery of [place] heart without angina pectoris TAKE 1 TABLET(75 [...] 81 mg. 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 Father quad bypass Diabetes Father Mild type 2 diab etes Eye Disorder Father Prostate Cancer Father Sleep Apnea Father Cerebrovascular Disease Mother Musculoskeletal Disorder Mother fibromy algia/Pccbz-Xhchwbn-Ygaxb Myocardial Infarction Mother Rheumatoid Arthritis Mother Musculoskeletal Disorder Sister MS Relation Status Comments Father (Age 86) Maternal Grandfather Maternal Grandmother Mother Alive Paternal Grandfather Paternal Grandmother Sister (Age 48) Social History Tobacco Use Types Packs/Day Years [...] Comments Blood Pressure 123/70 02/14/2023 1:45 PM WIND TURBINE SHEET METAL WORKER Pulse 80 02/14/2023 1:45 PM WIND TURBINE SHEET METAL WORKER Temperature 36.8 ??C (98.3 ??F) 07/08/2022 7:41 AM CD T Respiratory Rate 20 02/14/2023 1:45 PM WIND TURBINE SHEET METAL WORKER Oxygen Saturation 94% 02/14/2023 1:45 PM WIND TURBINE SHEET METAL WORKER Inhaled Oxygen Concentration - - Weight 117.9 kg (260 lb) 10/04/2022 3:58 PM CDT Height 180.3 cm (5' 11) 09/25/2022 1:39 PM CDT Body Mass Index 36.26 09/25/2022 1:39 PM CDT Plan of Treatment Health Maintenance Due Date Last Done Comments CT COLONOGRAPHY 1960 FLEX SIG 1960 HF ACTION PLAN 1960 COLONOSCOPY 1970 HEPATITIS A IMMUNIZATION (1 of 2 - Risk 2-dose series) 12/07/1979 FIT 10/05/2017 10/05/2016, 03/12/2015 RSV VACCINE ( & 60+) (1 - 1-dose 60+ series) 2020 A1C 07/10/2022 01/10/2022, 11/0 03/2021, 01/21/2021, Additional history exists ANNUAL REVIEW OF HM ORDERS 07/13/202207/13, 02/05/2020, 12/17/2018 MICROALBUMIN 07/13/2022 07/13/2021, 04/0 04/2020, 04/16/2019, Additional history exists COVID-19 Vaccine ( season) 2022 01/03/2022, 08/05/2021, 03/10/2021, Additional history exists YEARLY PREVENTIVE VISIT 01/03/2023 01/03/2022, 10/05 BMP 01/08/2023 07/08/2022, 050 07/2022, 07/06/2022, Additional history exists DIABETIC FOOT EXAM 01/21/2023 01/21/2022, 0 06/04/2020, 12/17/2018, Additional history exists ZOSTER IMMUNIZATION (2 of 2) 01/22/2023 11/27/2022 LIPID 02/15/2023 02/15/2022, 03/07, 02/06/2020, Additional history exists PHQ-9 03/07/2023 09/04/2022, 07/0 05/2022, 01/03/2022, Additional history exists EYE EXAM 04/13/2023 04/13/2022, 02/0 11/2022, 04/13/2022, Additional history exists ALT 07/08/2023 07/07/2022, 02/02, 01/10/2022, Additional history exists CMP 07/08/2023 07/07/2022, 03/07, 01/21/2021, Additional history exists INFLUENZA VACCINE (#1) 2023 , 01/03/2022, 01/11/2021, Additional history exists CBC 02/15/2024 02/14/2023, 05/0 08/2022, 07/07/2022, Additional history exists COLORECTAL CANCER SCREENING 01/24/2025 sDNA (Cologuard) 01/24/2025 01/24/2022, 01/24/2022 DTAP/TDAP/TD IMMUNIZATION (3 - Td or Tdap) 05/25/2026 05/25/2016, 02/15/2006 ADVANCE CARE PLANNING 01/21/2027 01/21/2022, 017 MIGRAINE ACTION PLAN Completed 12/05/2011, 07/09/19 11 DEPRESSION ACTION PLAN Completed 8, 01/17/2017, 01/04/2016, Additional history exists HEPATITIS C SCREENING Completed 06/04/2020 HIV SCREENING Completed 06/04/2020 TSH W/FREE T4 REFLEX Completed 10/03/2021, 01/11/2021, 06/04/2020, Additional history exists Pneumococcal Vaccine: Pediatrics (0 to 5 Years) and At-Risk Patients (6 to 64 Years) Completed 11/27/2022, 09/01/2014 LUNG CANCER SCREENING Discontinued 12/29/2022 , 12/27/2021, 07/07/2021, Additional history exists HPV IMMUNIZATION Aged Out No longer e ligible based on patient's age to complete this topic IPV IMMUNIZATION Aged Out No longer e ligible based on patient's age to complete this topic MENINGITIS IMMUNIZATION Aged Out No l onger eligible based on patient's age to complete this topic RSV MONOCLONAL ANTIBODY Aged Out No l onger eligible based on patient's age to complete this topic Goals Goal Patient Goal Type Associated Problems Recent Progress Patient-Stated? Author Establish Regular Follow-Ups with PCP Care Plan HbA1C Not In Goal No Angelita Pemberton RD Get HbA1C Level in Goal Care Plan HbA1C Not In Goal No Angelita Pemberton RD Understand diabetes pathophysiology and disease progression [...] Optimize Self-Care Behaviors 90%(03/23/19 23 3:12 PM WIND TURBINE SHEET METAL WORKER) Angelita Diaz RD Note: I will [...] Optimize Self-Care Behaviors No Angelita Pemberton RD Reducing Risks - know how to prevent and treat long-term diabetes complications Care Plan Diabetes Self-Management Education Needed to Optimize Self-Care Behaviors Angelita Diaz RD Healthy Coping - use available resources to cope with the challenges of managing diabetes Care Plan Diabetes Self-Management Education Needed to Optimize Self-Care Behaviors Angelita Diaz RD Medical Devices Implanted Type Area Aircraft Fueler Device Identifier Shelf Expiration Date Model / Serial / Lot Medtronic I* [id number] [place] Xt Hf Quad Rapid Outsole Stitcher-D Mri [id number] Implanted:03/17 (Quantity not on file) ICD [employer] [id number] C OBALT XT HF QUAD BUCKLE STRINGER-D MRI / [id number] / Medtronic I* 4298 Attain Performa Mri Surescan [id number] Implanted:03/17 (Quantity not on file) Leads [employer] 4298 CLAUDY IN PERFORMA MRI SURESCAN / [id number] / Medtronic I* 5076 Capsurefix Novus [id number] Implanted:03/17 (Quantity not on file) Leads [employer] 5076 CAPS UREFIX NOVUS / [id number] / Medtronic I* 6935 Sprint Quattro Secure S [id number] Implanted:03/17 (Quantity not on file) Leads [employer] 6935 SPRI NT QUATTRO SECURE S / [id number] / Procedures Procedure Name Priority Date/Time Associated Diagnosis Comments CBC WITH PLATELETS STAT 02/14/2023 10 :20 AM WIND TURBINE SHEET METAL WORKER CT CHEST/ABDOMEN/PELVIS W CONTRAST Routine 12/29/2022 10:23 AM CDT BASIC METABOLIC PANEL Routine 07/08/2022 7:24 AM CDT COMPREHENSIVE METABOLIC PANEL Routine 07/07/2022 10:33 AM CDT EYE EXAM - HIM SCAN 04/13/2022 1 2:00 AM WIND TURBINE SHEET METAL WORKER LIPID PROFILE Routine 02/15/2022 10:03 AM WIND TURBINE SHEET METAL WORKER Chronic systolic congestive heart failure (H) HTN, goal below 140/90 COLOGUARD(EXACT SCIENCES) Routine 01/24/2022 12:00 PM WIND TURBINE SHEET METAL WORKER Screen for colon cancer HEMOGLOBIN A1C Routine 01/10/2022 9:45 AM WIND TURBINE SHEET METAL WORKER Type 2 diabetes mellitus with diabetic nephropathy, [...] (ABNORMAL) CBC with platelets (02/14/2023 10:20 AM WIND TURBINE SHEET METAL WORKER) WBC Count 10.9 4.0 - 11.0 10e3/uL 02/14/2023 10:33 AM WIND TURBINE SHEET METAL WORKER [facility] RBC Count 4.72 4.40 - 5.90 10e6/uL 02/14/2023 10:33 AM WIND TURBINE SHEET METAL WORKER [facility] Hemoglobin 10.4(L) 13.3 - 17.7 g/dL 02/14/2023 10:33 AM WIND TURBINE SHEET METAL WORKER [facility] Hematocrit 34.3(L) 40.0 - 53.0 % 02/14/2023 10:33 AM WIND TURBINE SHEET METAL WORKER [facility] MCV 73(L) 78 - 100 fL 02/14/2023 10:33 AM WIND TURBINE SHEET METAL WORKER [facility] MCH 22.0(L) 26.5 - 33.0 pg 02/14/2023 10:33 AM WIND TURBINE SHEET METAL WORKER [facility] MCHC 30.3(L) 31.5 - 36.5 g/dL 02/14/2023 10:33 AM WIND TURBINE SHEET METAL WORKER [facility] RDW 16.5(H) 10.0 - 15.0 % 02/14/2023 10:33 AM WIND TURBINE SHEET METAL WORKER [facility] Platelet Count 400 150 - 450 10e3/uL 02/14/2023 10:33 AM WIND TURBINE SHEET METAL WORKER LABORATORY Blood BLOOD SPECIMEN / Unknown Intraosseous / Unknown 02/14/2023 10:20 AM WIND TURBINE SHEET METAL WORKER 02/14/2023 10:29 AM WIND TURBINE SHEET METAL WORKER [facility] OTR OWNER OPERATOR TRUCK DRIVER [facility] LAB - BLOOD ORDERABLES [facility] [address] Lab (1st floor, no room number) [place] [address], [facility] [phone] * (ABNORMAL) Basic metabolic panel (07/08/2022 7:24 [...] 7:53 AM CDT LABORATORY Comment:eGFR calculated usin g 2020 CKD-EPI equation. Blood STRUCTURE OF RIGHT UPPER LIMB / Unknown Venipuncture / Unknown 07/08/2022 7:24 AM CDT 07/08/2022 7:32 AM CDT Meir Lovell MD LAB - BLOOD DENISA AREVALO [facility] Organization Address City/State/ZIP Co de Phone Number LABORATORY [facility] [address] Lab (1st floor, no room number) [place] [address], [facility] [phone] * (ABNORMAL) Comprehensive metabolic panel (07/07/2022 10:33 [...] MD LAB - BLOOD ORDERABL ES LABORATORY [facility] [address] [facility] Lab (1st floor, no room number) [place] [address], [place] [phone] * (ABNORMAL) EYE EXAM - HIM SCAN (04/13/2022 12:00 AM WIND TURBINE SHEET METAL WORKER) RETINOPATHY POSITIVE(A ) 04/13/2022 Provider Outside OTHER * (ABNORMAL) Lipid Profile (02/15/2022 10:03 AM WIND TURBINE SHEET METAL WORKER) Cholesterol 178 <200 mg/dL 02/15/2022 3:56 PM WIND TURBINE SHEET METAL WORKER [facility] Triglycerides 285(H) <150 mg/dL 02/15/2022 3:56 PM WIND TURBINE SHEET METAL WORKER [facility] Direct Measure HDL 34(L) >=40 mg/dL 02/15/2022 3:56 PM WIND TURBINE SHEET METAL WORKER [facility] LDL Cholesterol Calculated 87 <=100 mg/dL 02/15/2022 3:56 PM WIND TURBINE SHEET METAL WORKER [facility] Non HDL Cholesterol 144(H) <130 mg/dL 02/15/2022 3:56 PM WIND TURBINE SHEET METAL WORKER [facility] Blood STRUCTURE OF RIGHT UPPER LIMB / Unknown Venipuncture / Unknown 02/15/2022 10:03 AM WIND TURBINE SHEET METAL WORKER 02/15/2022 10:03 AM WIND TURBINE SHEET METAL WORKER Narrative [facility] - 02/15/2022 3:56 PM WIND TURBINE SHEET METAL WORKER Cholesterol Desirable: ??<200 mg/dL Triglycerides Normal: ??Less [...] equal to 220 mg/dL Keerthi Miner APRN [facility] LAB - BLOOD ORDERABLES [facility] [address] [facility], [address] [place] [address], [facility] [phone] * (ABNORMAL) COLOGUARD([facility] [place] RESEARCH) (01/24/2022 12:00 PM WIND TURBINE SHEET METAL WORKER) COLOGUARD-ABSTRAC T Positive( A) Negative 01/29/2022 7:20 AM WIND TURBINE SHEET METAL WORKER [facility] (CLIA #:[id number]) Comment: POSITIVE TEST RESULT. A positive Cologuard [...] screened with both Cologuard and colonoscopy. (Chelo Olmos et al, N Engl J Med 2014;370(14):1087-1895.) Cologuard may produce a false negative or false positive result (no colorectal cancer or precancerous polyp present at colonoscopy follow up). A negative Cologuard test result does not guarantee the absence of CRC or advanced adenoma (pre-cancer). The current Cologuard screening interval is every 3 years. ([place] [employer] Society and U.S. Multi-Society Task Force). Cologuard performance data in a 10,000 patient pivotal study using colonoscopy as the reference method can be accessed at the following location: www.Blink for iPhone and Android.Inbox/results. Additional description of the Cologuard test process, warnings and precautions can be found at www.cologuard.com. Stool specimen (specimen) 01/24/2022 12:00 PM WIND TURBINE SHEET METAL WORKER 01/25/2022 1:01 PM WIND TURBINE SHEET METAL WORKER Paula Reza MD LABORATORY Performing Organization Address City/[facility]/ZIP Co de Phone Number [facility] [address] [phone] [facility] (CLIA #:[id number]) [address] [place] [address] * (ABNORMAL) Hemoglobin A1c (01/10/2022 9:45 AM WIND TURBINE SHEET METAL WORKER) Hemoglobin A1C 8.9(H) 0.0 - 5.6 % 01/10/2022 9:52 AM WIND TURBINE SHEET METAL WORKER [facility] Comment: Normal <5.7% Prediabetes 5.7-6.4% ?? Diabetes 6.5% or higher Note: Adopted from ADA consensus guidelines. Blood STRUCTURE OF RIGHT UPPER LIMB / Unknown Venipuncture / Unknown 01/10/2022 9:45 AM WIND TURBINE SHEET METAL WORKER 01/10/2022 9:45 AM WIND TURBINE SHEET METAL WORKER Narrative [facility] - 01/10/2022 9:52 AM WIND TURBINE SHEET METAL WORKER Reviewed, ok with previous. Roopa Almonte MD LAB - BLOOD ORDER KEVIN Performing Organization Address City/[facility]/ZIP Co de Phone Number [facility] [address], [address] [place] [address], [place] [phone] * TSH with free T4 reflex (10/03/2021 8:11 AM CDT) TSH 2.97 0.30 - 4.20 uIU/mL 10/03/2021 8:58 AM CDT [facility] Blood STRUCTURE OF RIGHT UPPER LIMB / Unknown Venipuncture / Unknown 10/03/2021 8:11 AM CDT 10/03/2021 8:13 AM CDT Keerthi Miner APRN [facility] LAB - BLOOD ORDERABLES [facility] [address] Lab (1st floor, no room number) [place] [address], [facility] [phone] * Albumin Random Urine Quantitative with Creat [...] LAB - URINE ORDERA BLES OX LABORATORY [facility] [address] Lab (no room number, 1st floor of clinic) [place] [address], [facility] [phone] * HIV Antigen Antibody Combo (06/04/2020 2:43 PM CDT) HIV Antigen Antibody Combo Nonreactive NR^Nonrea ctive 06/04/2020 8:[address] [facility] Comment:HIV-1 p24 Ag & HIV-1 /HIV-2 Ab Not Detected Blood 06/04/2020 2:43 PM CDT 06/04/2020 2:44 PM CDT Shahida Sutton APRN, CNP LAB - BLOOD ORDERABLES Performing Organization Address City/[facility]/ZIP Co de Phone Number [facility] [address] [place] [address] * Hepatitis C Screen Reflex to HCV RNA Quant and Genotype (06/04/2020 2:43 PM CDT) Hepatitis C Antibody Nonreactive NR^Nonre active 06/04/2020 8:[address] [facility] Comment: Assay performance characteristics have not been established for newborns, infants, and children Blood 06/04/2020 2:43 PM CDT 06/04/2020 2:44 PM CDT Shahida Sutton APRN [facility] LAB - BLOOD ORDERABLES Performing Organization Address [facility] Co de Phone Number [address] [address] * PHQ-9 DEPRESSION SCREENING ORDER (05/01/2018) PHQ9 SCORE 5 Narrative Pelon Crowe - 05/01/2018 [facility] PROGRESS NOTE Provider Outside OTHER * Fecal colorectal cancer screen (FIT) (10/05/2016 10:45 AM CDT) Occult Blood Scn FIT Negative NEG [facility] Stool specimen (specimen) 10/05/2016 10:45 AM CDT 10/11/2016 11:00 AM CDT Shahida Sutton APRN, CNP LAB - STOOL S ORDERABLES Performing Organization Address City/[facility]/ZIP Co de Phone Number [facility] [address] [place] [address] from Last 3 Months or Most Recently Relevant to Health Maintenance Additional Health Concerns Active Problems Noted Date Diagnosed Date HbA1C Not In Goal 02/23/2022 Diabetes Self-Management Edu cation Needed to Optimize Self-Care Behaviors 02/23/2022 Infection Onset Date Last Indicated ESBL 01/05/2021 01/05/2021 Advance Directives For more information, please contact: [phone] * Full Code (Latest Code Status on [...] walt jung/ legal decision maker Care Teams Property Maintenance Technician Relationship Specialty Start Date End Date Paula Reza MD [address] [place] [address] PCP - General Internal Medicine 08/05/21 Roopa Almonte MD [address] [facility] 200 [place] [address] Endocrinology, Diabetes, and Metabolism 01/19/21 Maryse Burton PA-C [address] [place] [address] Physician Training Manager Dermatology 04/14/21 Roopa Almonte MD [address] [facility] 200 [place] [address] Hospitalist Endocrinology, Diabetes, and Metabolism 05/30/21 Griffin Joshi MD [address] [facility] [address] [place], [place] [address] Cardiovascular Disease 07/25/21 Roopa Almonte MD [address] [facility] 200 [place], [place] [address] Assigned Endocrinology Provider 09/10/21 Daylin Ludwig EP [facility] [address] [place] [address] Cardiac Rehabilitation Therapist 05/16/23 Marilin Montaño, [employer] [address] [place] [address] Assigned Heart and Vascular Provider 08/05/22 Esha Dewitt MD [address] [facility] 36 [place] [address] Gastroenterology 09/06/22 Heather Mosquera MD [address] [facility] [address] [facility] 150 [place] [address] Internal Medicine 09/06/22 Esha Dewitt MD [address] [facility] 36 [place], [place] [id number] Assigned Gastroenterology Provider 09/23/22 Valdo Escamilla PA-C [address] [facility] 103 [place], [place] [address] Assigned Neuroscience Provider 09/30/22 Nohelia Abarca PA-C [address] [place] [address] Physician Training Manager Gastroenterology 10/03/22 Heather Mosquera MD [address] [facility] 150 [place], [place] [address] Assigned PCP 01/06/23
--- OUTSIDE RECORDS SUMMARY | 2023-09-18 13:46 | XMS_ITS | Encounter Summary ---
Author Organization [place] Address [address] [place] [address] Care Team Providers Care Nuclear Powerplant Supervisor Name Role Phone Roopa Almonte MD Unavailable [phone] Maryse Burton PA-C Unavailable [phone] Roopa Almonte MD Unavailable [phone] Griffin Joshi MD Unavailable Paula Reza MD Primary Care Provider [phone] Roopa Almonte MD Unavailable [phone] Augustine Callaway MD Unavailable Daylin Ludwig Unavailable Daylin Ludwig Unavailable [phone] Marilin Montaño FORESTRY CONSULTANT Unavailable [phone] Esha Dewitt MD Unavailable [phone] Heather Mosquera MD Unavailable [phone] Paula Reza MD Unavailable Esha Dewitt MD Unavailable [phone] Valdo EscamillaC Unavailable [phone] Nohelia Abarca PA-C Unavailable [phone] Heather Mosquera MD Unavailable [phone] Fawad York MD Unavailable [phone] Encounter Details Date Type Department Care Team (Late st Contact Info) Description 10/13/2022 MyC Medical Advice [facility] [place] [address] [facility] [address] [place] [address] Yareli Flynn CMA Social History Tobacco Use Types Packs/Day Years [...] Optimize Self-Care Behaviors 90%(03/23/19 23 3:12 PM CLASSIFICATION CASE MANAGER) Angelita Diaz RD Note: I will check [...] documented as of this encounter Care Teams Nuclear Powerplant Supervisor Relationship Specialty Start Date End Date Paula Reza MD [address] [facility] 200 [place] [address] PCP - General Internal Medicine 08/05/21 Roopa Almonte MD [address] [facility] 200 [place] [address] Endocrinology, Diabetes, and Metabolism 01/19/21 Maryse Burton PA-C [address] [place] [address] Physician Hearing Consultant Dermatology 04/14/21 Roopa Almonte MD [address] [facility] 200 [place] [address] Hospitalist Endocrinology, Diabetes, and Metabolism 05/30/21 Griffin Joshi MD [address] [facility] [address] [place] [id number] Cardiovascular Disease 07/25/21 Roopa Almonte MD [address] [facility] 200 [place], [place] [address] Assigned Endocrinology Provider 09/10/21 [place] [address] [facility] 300 [place] [address] Assigned Musculoskeletal Provider 10/15/21 04/26/23 Daylin Ludwig EP [facility] [address] [address] Cardiac Rehabilitation Therapist 05/16/23 Daylin Ludwig EP [facility] [address] [place] [id number] Cardiac Rehabilitation Therapist 06/08/22 06/09/23 Marilin Montaño, FORESTRY CONSULTANT [address] [address] Assigned Heart and Vascular Provider 08/05/22 Esha Dewitt MD [address] [facility] 36 [place] [address] Gastroenterology 09/06/22 Heather Mosquera MD [address] [place] [address] Internal Medicine 09/06/22 Paula Reza MD [address] [facility] 200 [place] [address] Assigned PCP 09/09/22 01/05/23 Esha Dewitt MD [address] [facility] 36 [place] [address] Assigned Gastroenterology Provider 09/23/22 Valdo Escamilla PA-C [address] [place] [address] [place], [place] [address] Assigned Neuroscience Provider 09/30/22 Nohelia Abarca PA-C [address] [place], [place] [address] Physician Hearing Consultant Gastroenterology 10/03/22 Heather Mosquera MD [address] [id number] Assigned PCP 01/06/23 Fawad York MD [address] [place] [address] Assigned Musculoskeletal Provider 04/27/23 06/25/23 documented as of this encounter
--- OUTSIDE RECORDS SUMMARY | 2023-09-18 13:47 | XMS_ITS | Encounter Summary ---
Author Organization [place] Address [address] [place] [address] Care Team Providers Care Support Representative Name Role Phone Roopa Almonte MD Unavailable [phone] Maryse Burton PA-C Unavailable [phone] Roopa Almonte MD Unavailable [phone] Griffin Joshi MD Unavailable Paula Reza MD Primary Care Provider [phone] Roopa Almonte MD Unavailable [phone] Augustine Callaway MD Unavailable Daylin Ludwig Unavailable Daylin Ludwig Unavailable [phone] Marilin Montaño WHEEL ASSEMBLER Unavailable [phone] Esha Dewitt MD Unavailable [phone] Heather Mosquera MD Unavailable [phone] Paula Reza MD Unavailable Esha Dewitt MD Unavailable [phone] Valdo EscamillaC Unavailable [phone] Nohelia Abarca PA-C Unavailable [phone] Heather Mosquera MD Unavailable Faawd York MD Unavailable [phone] Encounter Details Date Type Department Care Team (Late st Contact Info) Description 10/12/2022 MyC Medical Advice [facility] Gastroenterology Clinic [place] [id number] [facility] [address] 4th [place] [address] Esha Dewitt MD 420 [facility] 36 [place] [address] Social History Tobacco Use Types Packs/Day Years [...] Optimize Self-Care Behaviors 90%(03/23/19 23 3:12 PM HAND BRAILLE TRANSCRIBER) Angelita Diaz RD Note: I will check [...] documented as of this encounter Care Teams Support Representative Relationship Specialty Start Date End Date Paula Reza MD [address] [facility] 200 [place] [address] PCP - General Internal Medicine 08/05/21 Roopa Almonte MD [address] [facility] 200 [place] [address] Endocrinology, Diabetes, and Metabolism 01/19/21 Maryse Burton, PAAna MariaC 5200 [place] [address] Physician Heel Room Supervisor Dermatology 04/14/21 Roopa Almonte MD [address] [facility] 200 [place] [address] Hospitalist Endocrinology, Diabetes, and Metabolism 05/30/21 Griffin Joshi MD 6[address] [facility] W[address] [place] [address] Cardiovascular Disease 07/25/21 Roopa Almonte MD [address] [facility] 200 [place], [place] [address] Assigned Endocrinology Provider 09/10/21 [place] [address] [facility] 300 [place] [address] Assigned Musculoskeletal Provider 10/15/21 04/26/23 Daylin Ludwig EP [facility] [address] [place] [address] Cardiac Rehabilitation Therapist 05/16/23 Daylin Ludwig EP [facility] [address] [place] [address] Cardiac Rehabilitation Therapist 06/08/22 06/09/23 Marilin Montaño, WHEEL ASSEMBLER [address] [place] [address] Assigned Heart and Vascular Provider 08/05/22 Esha Dewitt MD 420 [facility] 36 [place], [place] [address] Gastroenterology 09/06/22 Heather Mosquera MD [address] [place], [place] [address] Internal Medicine 09/06/22 Paula Reza MD [address] [facility] 200 [place], [place] [address] Assigned PCP 09/09/22 01/05/23 Esha Dewitt MD 420 [facility] 36 [place], [place] [address] Assigned Gastroenterology Provider 09/23/22 Valdo Escamilla PA-C [address] [place] [address] Assigned Neuroscience Provider 09/30/22 Nohelia Abarca PA-C 2450 [place] [address] Physician Heel Room Supervisor Gastroenterology 10/03/22 Heather Moqsuera MD 6545 [facility] 150 [place] [address] Assigned PCP 01/06/23 Fawad York MD 909 [place] [address] Assigned Musculoskeletal Provider 04/27/23 06/25/23 documented as of this encounter
--- OUTSIDE RECORDS SUMMARY | 2023-09-18 13:47 | XMS_ITS | Encounter Summary ---
Author Organization [place] Address [address] [place] [address] Care Team Providers Care Route Process Administrator Name Role Phone Roopa Almonte MD Unavailable [phone] Maryse Burton PA-C Unavailable [phone] Roopa Almonte MD Unavailable [phone] Griffin Joshi MD Unavailable Rina Magallon RN Unavailable [phone] Paula Reza MD Primary Care Provider [phone] Roopa Almonte MD Unavailable [phone] Rosa Maria Love Unavailable [phone] Augustine Callaway MD Unavailable Porsha Michaels APRN OPENER TENDER Unavailable [phone] Shahida Sutton APRN OPENER TENDER Unavailable Un available Daylin Ludwig Unavailable [phone] Laurel Velasquez MD Unavailable [phone] Daylin Ludwig Unavailable [phone] Paula Reza MD Unavailable Porsha Michaels APRN OPENER TENDER Unavailable RonArelyyemi Sands MD Unavailable Shahida Sutton APRN OPENER TENDER Unavailable Un available Marilin Montaño OPENER TENDER Unavailable Esha Dewitt MD Unavailable [phone] EvelineHeather pastrana MD Unavailable [phone] Paula Reza MD Unavailable Esha Dewitt MD Unavailable [phone] Valdo Escamilla PA-C Unavailable [phone] Nohelia Abarca-C Unavailable [phone] Heather Mosquera MD Unavailable Fawad York MD Unavailable Encounter Details Date Type Department Care Team (Late st Contact Info) Description 05/02/2022 [facility] Medical Advice [facility] Sleep [address] [address] Alexa Madden Social History Tobacco Use Types Packs/Day Years Used Date Smoking Tobacco: Former Cigarettes Q uit: 12/09/2006 Cigars Smokeless Tobacco: Never Alcohol Use Standard Drinks/Week Comments Not Currently 0 (1 standard drink = 0.6 oz pur e alcohol) Overall Financial Resource Strain (CARDIA) Answe r Date Recorded How hard is it for you to pa y for the very basics like food, housing, medical care, and heating? Not hard at all 07/29/2021 PHQ-2 Answer Date Recorded PHQ-2 Score 2 01/03/2022 Hunger Vital Sign Answer Date Recorded Within [...] suspected to have Coronavirus/COVID-19? No / Unsure 05/02/2022 3:45 PM APPLICATIONS SALES REPRESENTATIVE documented as of this encounter Plan of [...] to Optimize Self-Care Behaviors 90%(03/23/19 3:12 PM APPLICATIONS SALES REPRESENTATIVE) Angelita Diaz RD Note: I will check [...] Optimize Self-Care Behaviors No Angelita Pemberton RD Healthy Coping - use available resources [...] Assessment Noted Time PHQ-9 Depression Total Score: 7 01/04/20 22 4:11 PM CDT documented as of this encounter Care Teams Route Process Administrator Relationship Specialty Start Date End Date Paula Reza MD [address] [facility] 200 [place], [place] [address] PCP - General Internal Medicine 08/05/21 Roopa Almonte MD 303 [address] [facility] 200 [place], [place] [address] Endocrinology, Diabetes, and Metabolism 01/19/21 Maryse Burton, PA-C 5200 [place] [address] Physician Space Systems Operations Craftsman Dermatology 04/14/21 Roopa Almonte MD [address] [facility] 200 [place] [address] Hospitalist Endocrinology, Diabetes, and Metabolism 05/30/21 Griffin Joshi MD [address] [place] [address] Cardiovascular Disease 07/25/21 Rina Magallon, RN Lead Pharmaceutical Operator 07/29/21 07/11/22 Roopa Almonte MD [address] [facility] 200 [place], [place] [address] Assigned Endocrinology Provider 09/10/21 Rosa Maria Love, CHW Community Health Worker 10/06/21 07/11/22 [place] [address] [facility] 300 [place] [address] Assigned Musculoskeletal Provider 10/15/21 04/26/23 Porsha Michaels APRN OPENER TENDER [address] [address] Assigned Heart and Vascular Provider 02/11/22 05/12/22 Shahida Sutton APRN OPENER TENDER [address] [address] Assigned PCP 04/08/22 06/30/22 Daylin Ludwig EP [facility] [address] [address] Cardiac Rehabilitation Therapist 05/16/23 Laurel Velasquez MD [address] [address] Assigned Heart and Vascular Provider 05/13/22 06/30/22 Daylin Ludwig EP [facility] [address] [address] Cardiac Rehabilitation Therapist 06/08/22 06/09/23 Paula Reza MD [address] [place] [address] Assigned PCP 07/01/22 07/07/22 Porsha Michaels APRN OPENER TENDER [address] [place] [address] Assigned Heart and Vascular Provider 07/01/22 07/07/22 Laurel Velasquez MD [address] [place] [address] Assigned Heart and Vascular Provider 07/08/22 08/04/22 Shahida Sutton APRN OPENER TENDER Assigned PCP 07/08/22 09/08/22 Marilin Montaño, OPENER TENDER [address] [place] [address] Assigned Heart and Vascular Provider 08/05/22 Esha Dewitt MD [address] [place] [address] Gastroenterology 09/06/22 Heather Mosquera MD [address] [place] [address] Internal Medicine 09/06/22 Paula Reza MD [address] [place] [address] Assigned PCP 09/09/22 01/05/23 Esha Dewitt MD [address] [place] [address] Assigned Gastroenterology Provider 09/23/22 Valdo Escamilla PA-C 6363 [facility] 103 [place], [place] [address] Assigned Neuroscience Provider 09/30/22 Nohelia Abarca PA-C 2450 [place], [place] [address] Physician Space Systems Operations Craftsman Gastroenterology 10/03/22 Heather Mosquera MD 6545 [facility] 150 [place], [place] [address] Assigned PCP 01/06/23 Fawad York MD 909 [place], [place] [address] Assigned Musculoskeletal Provider 04/27/23 06/25/23 documented as of this encounter
--- OUTSIDE RECORDS SUMMARY | 2023-09-18 13:47 | XMS_ITS | Encounter Summary ---
Author Organization [place] Address [address] [place] [address] Care Team Providers Care Long Distance Operator Name Role Phone Roopa Almonte MD Unavailable [phone] Maryse Burton PA-C Unavailable [phone] Roopa Almonte MD Unavailable [phone] Griffin Joshi MD Unavailable Paula Reza MD Primary Care Provider [phone] Roopa Almonte MD Unavailable [phone] Augustine Callaway MD Unavailable Daylin Ludwig Unavailable Daylin Ludwig Unavailable [phone] Marilin Mnotaño BUSINESS EXCELLENCE LEADER Unavailable [phone] Esha Dewitt MD Unavailable [phone] Heather Mosquera MD Unavailable [phone] Paula Reza MD Unavailable Esha Dewitt MD Unavailable [phone] Valdo EscamillaC Unavailable [phone] Nohelia Abarca PA-C Unavailable Heather Mosquera MD Unavailable [phone] Fawad York MD Unavailable [phone] Encounter Details Date Type Department Care Team (Late st Contact Info) Description 10/03/2022 MyC Medical Advice [facility] Gastroenterology Clinic [address] 4th [place] [address] Paz Zavala, RN Social History [...] was confirmed or suspected to have Coronavirus/COVID-19? Unable to assess 10/03/2022 9:47 AM CDT documented as of this encounter [...] to Optimize Self-Care Behaviors 90%(03/23/19 3:12 PM TRACING LATHE SET UP OPERATOR) Angelita Diaz RD Note: I will check [...] documented as of this encounter Care Teams Long Distance Operator Relationship Specialty Start Date End Date Paula Reza MD [address] [facility] 200 [place] [address] PCP - General Internal Medicine 08/05/21 Roopa Almonte MD [address] [facility] 200 [place] [address] Endocrinology, Diabetes, and Metabolism 01/19/21 Maryse Burton PA-C 5[address] [place], [place] 95[address] Physician Destination Coordinator Dermatology 04/14/21 Roopa Almonte MD [address] [facility] 200 [place] [address] Hospitalist Endocrinology, Diabetes, and Metabolism 05/30/21 Griffin Joshi MD [address] [facility] [address] [place] [address] Cardiovascular Disease 07/25/21 Roopa Almonte MD [address] [facility] 200 [place], [place] [address] Assigned Endocrinology Provider 09/10/21 [place] [address] [facility] 300 [place] [address] Assigned Musculoskeletal Provider 10/15/21 04/26/23 Daylin Ludwig EP [facility] [address] [address] Cardiac Rehabilitation Therapist 05/16/23 Daylin Ludwig EP [facility] [address] 6[address] Cardiac Rehabilitation Therapist 06/08/22 06/09/23 Marilin Montaño, BUSINESS EXCELLENCE LEADER [address] [address] Assigned Heart and Vascular Provider 08/05/22 Esha Dewitt MD 420 [facility] 36 [place], [place] [address] MD Gastroenterology 09/06/22 Heather Mosquera MD [address] [facility] 150 [place] [address] Internal Medicine 09/06/22 Paula Reza MD 303 E [facility] 200 [place] [address] Assigned PCP 09/09/22 01/05/23 Esha Dewitt MD 420 [facility] 36 [place] [address] Assigned Gastroenterology Provider 09/23/22 Valdo Escamilla PA-C [address] [place], [place] [address] Assigned Neuroscience Provider 09/30/22 Nohelia Abarca PA-C [address] [place] [address] Physician Destination Coordinator Gastroenterology 10/03/22 Heather Mosquera MD [address] [address] Assigned PCP 01/06/23 Fawad York MD 9 [place], [place] [address] Assigned Musculoskeletal Provider 04/27/23 06/25/23 documented as of this encounter
--- OUTSIDE RECORDS SUMMARY | 2023-09-18 13:47 | XMS_ITS | Encounter Summary ---
Author Organization [place] Address [address] [place] [address] Care Team Providers Care Tour Bus Driver Name Role Phone Roopa Almonte MD Unavailable [phone] Maryse Burton PA-C Unavailable Roopa Almonte MD Unavailable [phone] Griffin Joshi MD Unavailable Paula Reza MD Primary Care Provider [phone] Roopa Almonte MD Unavailable [phone] Augustine Callaway MD Unavailable Daylin Ludwig Unavailable Daylin Ludwig Unavailable [phone] Marilin Montaño TRIAGE RN Unavailable [phone] Esha Dewitt MD Unavailable [phone] Heather Mosquera MD Unavailable [phone] Paula Reza MD Unavailable Esha Dewitt MD Unavailable [phone] Valdo EscamillaC Unavailable [phone] Nohelia Abarca PA-C Unavailable [phone] Heather Mosquera MD Unavailable Fawad York MD Unavailable Encounter Details Date Type Department Care Team (Late st Contact Info) Description 09/13/2022 MyC Medical Advice [facility] Gastroenterology Clinic [place] 799619 [facility] SE 4th [place] [address] Esha Dewitt MD 420 [facility] 36 [place] [address] Social History Tobacco Use Types [...] 07/29/2021 PHQ-2 Answer Date Recorded PHQ-2 Score 1 09/13/2022 Hunger Vital Sign Answer Date Recorded Within [...] suspected to have Coronavirus/COVID-19? No / Unsure 08/23/2022 2:56 PM CDT documented as of this encounter Plan [...] to Optimize Self-Care Behaviors 90%(03/23/19 3:12 PM CORRECTIONAL CORPORAL) Angelita Diaz RD Note: I will check [...] documented as of this encounter Care Teams Tour Bus Driver Relationship Specialty Start Date End Date Paula Reza MD [address] [facility] 200 [place] [address] PCP - General Internal Medicine 08/05/21 Roopa Almonte MD [address] [facility] 200 [place] [address] Endocrinology, Diabetes, and Metabolism 01/19/21 Maryse Burton, PAAna MariaC 5[address] [place] [address] Physician Offal Roller Dermatology 04/14/21 Roopa Almonte MD [address] [facility] 200 [place] [address] Hospitalist Endocrinology, Diabetes, and Metabolism 05/30/21 Griffin Joshi MD 6405 [facility] [address] [place] [address] Cardiovascular Disease 07/25/21 Roopa Almonte MD [address] [facility] 200 [place], [place] [address] Assigned Endocrinology Provider 09/10/21 [place] [address] [facility] 300 [place] [address] Assigned Musculoskeletal Provider 10/15/21 04/26/23 Daylin Ludwig EP [facility] [address] [place] [address] Cardiac Rehabilitation Therapist 05/16/23 Daylin Ludwig EP [facility] [address] [place] [address] Cardiac Rehabilitation Therapist 06/08/22 06/09/23 Marilin Montaño, TRIAGE RN [address] [place] [address] Assigned Heart and Vascular Provider 08/05/22 Esha Dewitt MD 420 [facility] 36 [place], [place] [address] Gastroenterology 09/06/22 Heather Mosquera MD [address] [place], [place] [address] Internal Medicine 09/06/22 Paula Reza MD 303 E [facility] 200 [place], [place] [address] Assigned PCP 09/09/22 01/05/23 Esha Dewitt MD 420 [facility] 36 [place], [place] [address] Assigned Gastroenterology Provider 09/23/22 Valdo Escamilla PA-C [address] [place] [address] Assigned Neuroscience Provider 09/30/22 Nohelia Abarca PA-C 2450 [place] [address] Physician Offal Roller Gastroenterology 10/03/22 Heather Mosquera MD 6545 [facility] 150 [place] [address] Assigned PCP 01/06/23 Fawad [place] MD 909 [place] [address] Assigned Musculoskeletal Provider 04/27/23 06/25/23 documented as of this encounter
--- OUTSIDE RECORDS SUMMARY | 2023-09-18 13:47 | XMS_ITS | Encounter Summary ---
Author Organization [place] Address [address] [place] [address] Care Team Providers Care Embedded Processor Name Role Phone Roopa Almonte MD Unavailable [phone] Maryse Burton PA-C Unavailable Roopa Almonte MD Unavailable [phone] Griffin Joshi MD Unavailable Paula Reza MD Primary Care Provider [phone] Roopa Almonte MD Unavailable [phone] Augustine Callaway MD Unavailable Daylin Ludwig Unavailable Daylin Ludwig Unavailable [phone] Marilin Montaño CARRIER BLOWER Unavailable [phone] Esha Dewitt MD Unavailable [phone] Heather Mosquera MD Unavailable [phone] Paula Reza MD Unavailable Esha Dewitt MD Unavailable [phone] Valdo EscamillaC Unavailable [phone] Nohelia Abarca PA-C Unavailable [phone] Heather Mosquera MD Unavailable [phone] Fawad York MD Unavailable [phone] Encounter Details Date Type Department Care Team (Late st Contact Info) Description 10/13/2022 MyC Medical Advice [facility] Sleep Clinic [place] [address] [facility] 202 [place] [address] Yareli Flynn CMA Social History [...] Optimize Self-Care Behaviors 90%(03/23/19 23 3:12 PM STOVE CLEANER) Angelita Diaz RD Note: I will check [...] documented as of this encounter Care Teams Embedded Processor Relationship Specialty Start Date End Date Paula Reza MD [address] [facility] 200 [place] [address] PCP - General Internal Medicine 08/05/21 Roopa Almonte MD [address] [facility] 200 [place] [address] Endocrinology, Diabetes, and Metabolism 01/19/21 Maryse Burton PA-C 5200 [place] [address] Physician Casing Worker Dermatology 04/14/21 Roopa Almonte MD [address] [facility] 200 [place] [address] Hospitalist Endocrinology, Diabetes, and Metabolism 05/30/21 Griffin Joshi MD [address] [facility] [address] [place] [address] Cardiovascular Disease 07/25/21 Roopa Almonte MD [address] [facility] 200 [place], [place] [address] Assigned Endocrinology Provider 09/10/21 [place] [address] [facility] 300 [place] [address] Assigned Musculoskeletal Provider 10/15/21 04/26/23 Daylin Ludwig EP [facility] [address] [address] Cardiac Rehabilitation Therapist 05/16/23 Daylin Ludwig EP [facility] [address] [place] [address] Cardiac Rehabilitation Therapist 06/08/22 06/09/23 Marilin Montaño, CARRIER BLOWER [address] [address] Assigned Heart and Vascular Provider 08/05/22 Esha Dewitt MD 420 [facility] 36 [place] [address] Gastroenterology 09/06/22 Heather Mosquera MD [address] [place] [address] Internal Medicine 09/06/22 Paula Reza MD 303 E [facility] 200 [place] [address] Assigned PCP 09/09/22 01/05/23 Esha Dewitt MD 420 [facility] 36 [place] [address] Assigned Gastroenterology Provider 09/23/22 Valdo Escamilla PA-C [address] [place], [place] [address] Assigned Neuroscience Provider 09/30/22 Nohelia Abarca PA-C [address] [place], [place] [address] Physician Casing Worker Gastroenterology 10/03/22 Heather Mosquera MD [address] [address] Assigned PCP 01/06/23 Fawad [place] MD 909 [place] [address] Assigned Musculoskeletal Provider 04/27/23 06/25/23 documented as of this encounter
--- OUTSIDE RECORDS SUMMARY | 2023-09-18 13:47 | XMS_ITS | Encounter Summary ---
Author Organization [place] Address [address] [place] [address] Care Team Providers Care Groundskeeping Yardman Name Role Phone Roopa Almonte MD Unavailable [phone] Maryse Burton PA-C Unavailable Roopa Almonte MD Unavailable [phone] Griffin Joshi MD Unavailable Paula Reza MD Primary Care Provider [phone] Roopa Almonte MD Unavailable [phone] Augustine Callaway MD Unavailable Daylin Ludwig Unavailable Daylin Ludwig Unavailable [phone] Marilin Montaño FLORAL ASSISTANT Unavailable [phone] Esha Dewitt MD Unavailable [phone] Heather Mosquera MD Unavailable [phone] Paula Reza MD Unavailable Esha Dewitt MD Unavailable [phone] Valdo EscamillaC Unavailable [phone] Nohelia Abarca PA-C Unavailable [phone] Heather Mosquera MD Unavailable [phone] Fawad York MD Unavailable Encounter Details Date Type Department Care Team (Late st Contact Info) Description 10/05/2022 MyC Medical Advice [facility] Gastroenterology Clinic [address] 4th [place] [address] Amy De La Cruz Social History Tobacco Use Types Packs/Day Years [...] to Optimize Self-Care Behaviors 90%(03/23/19 3:12 PM RAILROAD INSPECTOR) Angelita Diaz RD Note: I will check [...] documented as of this encounter Care Teams Groundskeeping Yardman Relationship Specialty Start Date End Date Paula Reza MD [address] [facility] 200 [place], [place] [address] PCP - General Internal Medicine 08/05/21 Roopa Almonte MD [address] [facility] 200 [place] [address] Endocrinology, Diabetes, and Metabolism 01/19/21 Maryse Burton PA-C 5200 [place] [address] Physician Forensic Technician Dermatology 04/14/21 Roopa Almonte MD [address] [facility] 200 [place] [address] Hospitalist Endocrinology, Diabetes, and Metabolism 05/30/21 Griffin Joshi MD [address] [facility] [address] [place] [address] Cardiovascular Disease 07/25/21 Roopa Almonte MD [address] [place] [address] 200 [place], [place] [address] Assigned Endocrinology Provider 09/10/21 [place] [address] [facility] 300 [place] [address] Assigned Musculoskeletal Provider 10/15/21 04/26/23 Daylin Ludwig EP [facility] [address] [address] Cardiac Rehabilitation Therapist 05/16/23 Daylin Ludwig EP [facility] [address] [place] [address] Cardiac Rehabilitation Therapist 06/08/22 06/09/23 Marilin Montaño FLORAL ASSISTANT [address] [address] Assigned Heart and Vascular Provider 08/05/22 Esha Dewitt MD [address] [address] MD Gastroenterology 09/06/22 Heather Mosquera MD [address] [facility] [facility] 150 [place], [place] [address] Internal Medicine 09/06/22 Paula Reza MD 303 E [facility] 200 [place], [place] [address] Assigned PCP 09/09/22 01/05/23 Esha Dewitt MD [address] [address] Assigned Gastroenterology Provider 09/23/22 Valdo Escamilla PA-C [address] [facility] [address] [place], [place] [address] Assigned Neuroscience Provider 09/30/22 Nohelia Abarca PA-C [address] [place], [place] [address] Physician Forensic Technician Gastroenterology 10/03/22 Heather Mosquera MD [address] [address] Assigned PCP 01/06/23 Fawad York MD 9 [place], [place] [address]15 Assigned Musculoskeletal Provider 04/27/23 06/25/23 documented as of this encounter
--- OUTSIDE RECORDS SUMMARY | 2023-09-18 13:47 | XMS_ITS | Encounter Summary ---
Author Organization [place] Address [address] [place] [address] Care Team Providers Care Manager Legal Name Role Phone Roopa Almonte MD Unavailable [phone] Maryse Burton PA-C Unavailable Roopa Almonte MD Unavailable [phone] Griffin Joshi MD Unavailable Paula Reza MD Primary Care Provider [phone] Roopa Almonte MD Unavailable [phone] Augustine Callaway MD Unavailable Daylin Ludwig Unavailable Daylin Ludwig Unavailable [phone] Marilin Montaño PIPE SETTER Unavailable [phone] Esha Dewitt MD Unavailable [phone] Heather Mosquera MD Unavailable [phone] Paula Reza MD Unavailable Esha Dewitt MD Unavailable [phone] Valdo EscamillaC Unavailable [phone] Nohelia Abarca PA-C Unavailable [phone] Heather Mosquera MD Unavailable [phone] Fawad York MD Unavailable [phone] Encounter Details Date Type Department Care Team (Late st Contact Info) Description 10/04/[address] [facility] [address] 4th [place] [address] Jennifer Mast MA Social History Tobacco Use Types Packs/Day Years [...] to Optimize Self-Care Behaviors 90%(03/23/19 3:12 PM CAREER INFORMATION SPECIALIST) Angelita Diaz RD Note: I will check [...] documented as of this encounter Care Teams Manager Legal Relationship Specialty Start Date End Date Paula Reza MD [address] [address] PCP - General Internal Medicine 08/05/21 Roopa Almonte MD [address] [facility] 200 [place] [address] Endocrinology, Diabetes, and Metabolism 01/19/21 Maryse Burton PAAna MariaC [address] [place], [place] 15[address]192 Physician Hemmer Automatic Dermatology 04/14/21 Roopa Almonte MD [address] [facility] 200 [place] [address] Hospitalist Endocrinology, Diabetes, and Metabolism 05/30/21 Griffin Joshi MD [address] [facility] [address] [place] [address] Cardiovascular Disease 07/25/21 Roopa Almonte MD [address] [facility] 200 [place], [place] [address] Assigned Endocrinology Provider 09/10/21 [place] [address] [facility] 300 [place] [address] Assigned Musculoskeletal Provider 10/15/21 04/26/23 Daylin Ludwig EP [facility] [address] [address] Cardiac Rehabilitation Therapist 05/16/23 Daylin Ludwig EP [facility] [address] [place] [address]885 Cardiac Rehabilitation Therapist 06/08/22 06/09/23 Marilin Montaño PIPE SETTER [address] [address] Assigned Heart and Vascular Provider 08/05/22 Esha Dewitt MD 420 [facility] 36 [place], [place] [address] MD Gastroenterology 09/06/22 Heather Mosquera MD [address] [place] [address] Internal Medicine 09/06/22 Paula Reza MD 303 [address] [facility] 200 [place], [place] [address]697 Assigned PCP 09/09/22 01/05/23 Esha Dewitt MD 420 [facility] 36 [place], [place] [address] Assigned Gastroenterology Provider 09/23/22 Valdo Escamilla PA-C [address] [place], [place] [address] Assigned Neuroscience Provider 09/30/22 Nohelia Abarca PA-C [address] [place], [place] [address] Physician Hemmer Automatic Gastroenterology 10/03/22 Heather Mosquera MD [address] [address] Assigned PCP 01/06/23 Fawad York MD 9 [place], [place] [address] Assigned Musculoskeletal Provider 04/27/23 06/25/23 documented as of this encounter
--- OUTSIDE RECORDS SUMMARY | 2023-09-18 13:47 | XMS_ITS | Encounter Summary ---
Author Organization [facility] Address [address] [place] [address] Care Team Providers Care Banquet Server Name Role Phone Roopa Almonte MD Unavailable [phone] Maryse Burton PA-C Unavailable [phone] Roopa Almonte MD Unavailable [phone] Griffin Joshi MD Unavailable Rina Magallon RN Unavailable [phone] Paula Reza MD Primary Care Provider [phone] Roopa Almonte MD Unavailable [phone] Rosa Maria Love Unavailable [phone] Augustine Callaway MD Unavailable Porsha Michaels APRN BALLOON DIPPER Unavailable [phone] Shahida Sutton APRN BALLOON DIPPER Unavailable Un available Daylin Ludwig Unavailable [phone] Laurel Velasquez MD Unavailable [phone] Daylin Ludwig Unavailable [phone] Paula Reza MD Unavailable Porsha Michaels APRN BALLOON DIPPER Unavailable Laurel Velasquez MD Unavailable Shahida Sutton APRN BALLOON DIPPER Unavailable Un available Marilin Montaño BALLOON DIPPER Unavailable Esha Dewitt MD Unavailable [phone] Heather Mosquera MD Unavailable Paula Reza MD Unavailable Esha Dewitt MD Unavailable [phone] Valdo Escamilla PAAna MariaC Unavailable [phone] Nohelia AbarcaC Unavailable Heather Mosquera MD Unavailable [phone] Fawad York MD Unavailable Encounter Details Date Type Department Care Team (Late st Contact Info) Description 05/02/2022 Telephone [facility] [address] [address] Laurel Velasquez MD [address] [address] Social History Tobacco Use Types Packs/Day Years [...] Coronavirus/COVID-19? No / Unsure 05/02/2022 3:45 PM JEWELRY DRILL OPERATOR documented as of this encounter Miscellaneous Notes * Telephone Encounter - Abdulaziz Mendez - 05/02/2022 1:59 PM CST Spoke to patient and patient has decided to keep his appointment for today 05/02/22 at 4:[address] Velasquez. He does not want to cancel his appointment. LRY DRILL OPERATOR * Telephone Encounter - Crystal Dietrich - 05/02/2022 1:35 PM CST Health Call Center Phone Message May a detailed message be left on voicemail: yes Reason for Call: Other: Pt called in wanting to reschedule TAVR appointment again. Please call patient back to further coordinate at [phone] Action Taken: Other: cardiology Travel Screening: Not Applicable Thank you! Specialty Access Center LRY DRILL OPERATOR documented in this encounter Plan of Treatment [...] to Optimize Self-Care Behaviors 90%(03/23/19 3:12 PM JEWELRY DRILL OPERATOR) Angelita Diaz RD Note: I will [...] documented as of this encounter Care Teams Banquet Server Relationship Specialty Start Date End Date Paula Reza MD [address] [facility] 200 [place] [address] PCP - General Internal Medicine 6/3/22 Roopa Almonte MD 303 [address] [facility] 200 [place] [address] Endocrinology, Diabetes, and Metabolism 01/19/21 Maryse Burton PA-C 5200 [place] [address] Physician Bench Boring 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 Dermatology 04/14/21 Roopa Almonte MD [address] [facility] 200 [place] [address] Hospitalist Endocrinology, Diabetes, and Metabolism 05/30/21 Griffin Joshi MD [address] [facility] [address] [place] 6[address] Cardiovascular Disease 07/25/21 Rina Magallon, RN Lead Granite Sandblaster Apprentice 07/29/21 07/11/22 Roopa Almonte MD [address] [place] [address] 200 [place], [place] [address]260 Assigned Endocrinology Provider 09/10/21 Rosa Maria Love CHW Community Health Worker 10/06/21 07/11/22 [place] [address] [facility] 300 [place] [address] Assigned Musculoskeletal Provider 10/15/21 04/26/23 Porsha Michaels APRN BALLOON DIPPER [address] [place] [address] Assigned Heart and Vascular Provider 02/11/22 05/12/22 Shahida Sutton APRN BALLOON DIPPER [address] [place] [address] Assigned PCP 04/08/22 06/30/22 Daylin Ludwig, [facility] [address] [place] [address] Cardiac Rehabilitation Therapist 05/16/23 Laurel Velasquez MD [address] [place] [address] Assigned Heart and Vascular Provider 05/13/22 06/30/22 Daylin Ludwig, MIKI [facility] [address] [place] [address] Cardiac Rehabilitation Therapist 06/08/22 06/09/23 Paula Reza MD [address] [facility] 200 [place], [place] [address] Assigned PCP 07/01/22 07/07/22 Porsha Michaels APRN BALLOON DIPPER [address] [place] [address] Assigned Heart and Vascular Provider 07/01/22 07/07/22 Laurel Velasquez MD [address] [place], [place] [address] Assigned Heart and Vascular Provider 07/08/22 08/04/22 Shahida Sutton APRN BALLOON DIPPER Assigned PCP 07/08/22 09/08/22 Marilin Montaño, BALLOON DIPPER [address] [place] [address] Assigned Heart and Vascular Provider 08/05/22 Esha Dewitt MD [address] [address] MD Gastroenterology 09/06/22 Heather Mosquera MD [address] [facility] [address] [facility] 150 [place] [address] Internal Medicine 09/06/22 Paula Reza MD 303 E [facility] 200 [place] [address] Assigned PCP 09/09/22 01/05/23 Esha Dewitt MD [address] [place] [address] Assigned Gastroenterology Provider 09/23/22 Valdo Escamilla PA-C 6[address] [facility] S [facility] 103 [place] [address] Assigned Neuroscience Provider 09/30/22 Nohelia Abarca PA-C 2450 [place] [address] Physician Bench Boring 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 Gastroenterology 10/03/22 Heather Mosquera MD [address] [facility] [address] [facility] 150 [place], [place] [address] Assigned PCP 01/06/23 Fawad York MD [address] [place] [id number] Assigned Musculoskeletal Provider 04/27/23 06/25/23 documented as of this encounter
--- OUTSIDE RECORDS SUMMARY | 2023-09-18 13:47 | XMS_ITS | Encounter Summary ---
Author Organization [place] Address [address] [place] [address] Care Team Providers Care Data Management Associate Name Role Phone Roopa Almonte MD Unavailable [phone] Maryse Burton PA-C Unavailable Roopa Almonte MD Unavailable [phone] Griffin Joshi MD Unavailable Paula Reza MD Primary Care Provider [phone] Roopa Almonte MD Unavailable [phone] Augustine Callaway MD Unavailable Daylin Ludwig EP Unavailable Daylin Ludwig EP Unavailable [phone] Shahida Sutton APRN PARK MAINTENANCE TECHNICIAN Unavailable Un available Marilin Montaño PARK MAINTENANCE TECHNICIAN Unavailable [phone] Esha Dewitt MD Unavailable [phone] Heather Mosquera MD Unavailable [phone] Paula Reza MD Unavailable Esha Dewitt MD Unavailable [phone] Valdo Escamilla PA-C Unavailable Nohelia Abarca PA-C Unavailable [phone] Heather Mosquera MD Unavailable [phone] Fawad York MD Unavailable Reason for Visit * Reason Onset Date Comments Appointment 08/25/2022 Reschedule Surge ry Encounter Details Date Type Department Care Team (Late st Contact Info) Description 08/25/2022 Telephone [facility] [place] 6400 [facility] [address] [address] Kim Romo MD [address] [facility] [address] [address] Appointment (Reschedule Surgery) Social History Tobacco Use Types Packs/Day Years [...] PHQ-2 Answer Date Recorded PHQ-2 Score 2 08/21/2022 Hunger Vital Sign Answer Date Recorded Within [...] PM CDT documented as of this encounter Miscellaneous Notes * Telephone Encounter - Jaspal Barclay - 09/19/2022 11:48 AM CDT [facility] Phone Message May a detailed message be left on voicemail: yes Reason for Call: Other: Shaun called back to r/s his Angiogram after not hearing back from the clinic for a few weeks. Please reach out to Shaun to reschedule. Thank you! Action Taken: Other: Cardiology Travel Screening: Not Applicable Thank you! Specialty Access Center * Telephone Encounter - Crystal Dietrich - 08/25/2022 9:53 AM CDT [facility] Phone Message May a detailed message be left on voicemail: yes Reason for Call: Other: Pt called in to reschedule surgery. Please call pt back to further coordinate appt. Action Taken: Other: cardiology Travel Screening: Not [...] Optimize Self-Care Behaviors 90%(03/23/19 23 3:12 PM HEALTH SAFETY MANAGER) Angelita Diaz RD Note: I will [...] documented as of this encounter Care Teams Data Management Associate Relationship Specialty Start Date End Date Paula Reza MD [address] [address] PCP - General Internal Medicine 08/05/21 Roopa Almonte MD [address] [address] Endocrinology, Diabetes, and Metabolism 01/19/21 Maryse Burton, PA-C 5200 [place] [address] Physician Field Broomer Dermatology 04/14/21 Roopa Almonte MD [address] [facility] 200 [place] [address] Hospitalist Endocrinology, Diabetes, and Metabolism 05/30/21 Griffin Joshi MD 6405 [facility] [address] [place] [address] Cardiovascular Disease 07/25/21 Roopa Almonte MD [address] [facility] 200 [place] [address] Assigned Endocrinology Provider 09/10/21 [place] [address] [facility] 300 [place] [address] Assigned Musculoskeletal Provider 10/15/21 04/26/23 Daylin Ludwig EP [facility] [address] [address] Cardiac Rehabilitation Therapist 05/16/23 Daylin Ludwig EP [facility] [address] [address] Cardiac Rehabilitation Therapist 06/08/22 06/09/23 Shahida Sutton APRN PARK MAINTENANCE TECHNICIAN Assigned PCP 07/08/22 09/08/22 Marilin Montaño CNP [address] [address] Assigned Heart and Vascular Provider 08/05/22 Esha Dewitt MD 420 [facility] 36 [place] [address] MD Gastroenterology 09/06/22 Heather Mosquera MD [address] [place], [place] [address] Internal Medicine 09/06/22 Paula Reza MD [address] E [facility] 200 [place], [place] [address] Assigned PCP 09/09/22 01/05/23 Esha Dewitt MD 420 [facility] 36 [place], [place] [address] Assigned Gastroenterology Provider 09/23/22 Valdo Escamilla PA-C 6363 [facility] 103 [place], [place] [address] Assigned Neuroscience Provider 09/30/22 Nohelia Abarca PA-C [address] [facility] [place], [place] [address] Physician Field Broomer Gastroenterology 10/03/22 Heather Mosquera MD [address] [place], [place] [address] Assigned PCP 01/06/23 Fawad York MD 909 [place], [place] [address] Assigned Musculoskeletal Provider 04/27/23 06/25/23 documented as of this encounter
--- OUTSIDE RECORDS SUMMARY | 2023-09-18 13:47 | XMS_ITS | Encounter Summary ---
Author Organization [place] Address [address] [place] [address] Care Team Providers Care Computing Systems Mechanic Name Role Phone Roopa Almonte MD Unavailable [phone] Maryse Burton PA-C Unavailable Roopa Almonte MD Unavailable [phone] Griffin Joshi MD Unavailable Paula Reza MD Primary Care Provider [phone] Roopa Almonte MD Unavailable [phone] Augustine Callaway MD Unavailable Daylin Ludwig Unavailable Daylin Ludwig Unavailable [phone] Marilin Montaño INTERIOR BLOCK WIRER Unavailable [phone] Esha Dewitt MD Unavailable [phone] Heather Mosquera MD Unavailable [phone] Paula Reza MD Unavailable Esha Dewitt MD Unavailable [phone] Valdo EscamillaC Unavailable [phone] Nohelia Abarca PA-C Unavailable [phone] Heather Mosquera MD Unavailable [phone] Fawad York MD Unavailable Encounter Details Date Type Department Care Team (Late st Contact Info) Description 10/05/2022 MyC Medical Advice [facility] [address] 4th [place] [address] Amy De La Cruz Social [...] to Optimize Self-Care Behaviors 90%(03/23/19 3:12 PM TUBE COATER) Angelita Diaz RD Note: I will check [...] documented as of this encounter Care Teams Computing Systems Mechanic Relationship Specialty Start Date End Date Paula Reza MD [address] [facility] 200 [place], [place] [address] PCP - General Internal Medicine 08/05/21 Roopa Almonte MD [address] [facility] 200 [place] [address] Endocrinology, Diabetes, and Metabolism 01/19/21 Maryse Burton PA-C 5200 [place] [address] Physician Mill Operator Head Dermatology 04/14/21 Roopa Almonte MD [address] [facility] 200 [place] [address] Hospitalist Endocrinology, Diabetes, and Metabolism 05/30/21 Griffin Joshi MD [address] [facility] [address] [address] Cardiovascular Disease 07/25/21 Roopa Almonte MD [address] [place] [address] 200 [place], [place] [address] Assigned Endocrinology Provider 09/10/21 [place] [address] [facility] 300 [place] [address] Assigned Musculoskeletal Provider 10/15/21 04/26/23 Daylin Ludwig EP [facility] [address] [address] Cardiac Rehabilitation Therapist 05/16/23 Daylin Ludwig EP [facility] [address] [address] Cardiac Rehabilitation Therapist 06/08/22 06/09/23 Marilin Montaño INTERIOR BLOCK WIRER [address] [address]62[address] Assigned Heart and Vascular Provider 08/05/22 Esha Dewitt MD [address] [address] MD Gastroenterology 09/06/22 Heather Mosquera MD [address] [facility] [address] [facility] 150 [place], [place] [address] Internal Medicine 09/06/22 Paula Reza MD 303 E [facility] 200 [place], [place] [address] Assigned PCP 09/09/22 01/05/23 Esha Dewitt MD [address] 6[address] Assigned Gastroenterology Provider 09/23/22 Valdo Escamilla PA-C [address] [facility] [address] [place], [place] [address] Assigned Neuroscience Provider 09/30/22 Nohelia Abarca PA-C [address] [place], [place] [address] Physician Mill Operator Head Gastroenterology 10/03/22 Heather Mosquera MD [address] [address] Assigned PCP 01/06/23 Fawad York MD 9 [place], [place] [address] Assigned Musculoskeletal Provider 04/27/23 06/25/23 documented as of this encounter
--- OUTSIDE RECORDS SUMMARY | 2023-09-18 13:47 | XMS_ITS | Encounter Summary ---
Author Organization [place] Address [address] [place] [address] Care Team Providers Care Oracle Ebs Developer Name Role Phone Roopa Almonte MD Unavailable [phone] Maryse Burton PA-C Unavailable [phone] Roopa Almonte MD Unavailable [phone] Griffin Joshi MD Unavailable Paula Reza MD Primary Care Provider [phone] Roopa Almonte MD Unavailable [phone] Augustine Callaway MD Unavailable Daylin Ludwig Unavailable Daylin Ludwig Unavailable [phone] Marilin Montaño WINDSHIELD WIPER REPAIRER Unavailable [phone] Esha Dewitt MD Unavailable [phone] Heather Mosquera MD Unavailable [phone] Paula Reza MD Unavailable Esha Dewitt MD Unavailable [phone] Valdo EscamillaC Unavailable [phone] Nohelia Abarca PA-C Unavailable [phone] Heather Mosquera MD Unavailable [phone] Fawad York MD Unavailable Encounter Details Date Type Department Care Team (Late st Contact Info) Description 10/05/2022 MyC Medical Advice [facility] [address] 4th [place] [address] Amy De La Cruz Social [...] to Optimize Self-Care Behaviors 90%(03/23/19 3:12 PM HARVESTING CONTRACTOR) Angelita Diaz RD Note: I will check [...] documented as of this encounter Care Teams Oracle Ebs Developer Relationship Specialty Start Date End Date Paula Reza MD [address] [facility] 200 [place], [place] [address] PCP - General Internal Medicine 08/05/21 Roopa Almonte MD [address] [facility] 200 [place] [address] Endocrinology, Diabetes, and Metabolism 01/19/21 Maryse Burton PA-C 5200 [place] [address] Physician Die Maker Electronic Dermatology 04/14/21 Roopa Almonte MD [address] [facility] 200 [place] [address] Hospitalist Endocrinology, Diabetes, and Metabolism 05/30/21 Griffin Joshi MD [address] [facility] [address] [address] Cardiovascular Disease 07/25/21 Roopa Almonte MD [address] [place] [address] 200 [place], [place] [address] Assigned Endocrinology Provider 09/10/21 [place] [address] [facility] 300 [place] [address] Assigned Musculoskeletal Provider 10/15/21 04/26/23 Daylin Ludwig EP [facility] [address] [address] Cardiac Rehabilitation Therapist 05/16/23 Daylin Ludwig EP [facility] [address] [address] Cardiac Rehabilitation Therapist 06/08/22 06/09/23 Marilin Montaño WINDSHIELD WIPER REPAIRER [address] [address]266[address] Assigned Heart and Vascular Provider 08/05/22 Esha Dewitt MD [address] [address] MD Gastroenterology 09/06/22 Heather Mosquera MD [address] [facility] [address] [facility] 150 [place], [place] [address] Internal Medicine 09/06/22 Paula Reza MD [address] [facility] 200 [place], [place] [address] Assigned PCP 09/09/22 01/05/23 Esha Dewitt MD [address] [address] Assigned Gastroenterology Provider 09/23/22 Valdo Escamilla PA-C [address] [facility] [address] [place], [place] [address] Assigned Neuroscience Provider 09/30/22 Nohelia Abarca PA-C [address] [place], [place] [address] Physician Die Maker Electronic Gastroenterology 10/03/22 Heather Mosquera MD [address] [address] Assigned PCP 01/06/23 Fawad York MD 9 [place], [place] [address] Assigned Musculoskeletal Provider 04/27/23 06/25/23 documented as of this encounter
--- OUTSIDE RECORDS SUMMARY | 2023-09-18 13:47 | XMS_ITS | Encounter Summary ---
Author Organization [place] Address [address] [place] [address] Care Team Providers Care Stock Or Delivery Clerk Name Role Phone Roopa Almonte MD Unavailable [phone] Maryes Burton PA-C Unavailable Roopa Almonte MD Unavailable [phone] Griffin Joshi MD Unavailable Paula Reza MD Primary Care Provider [phone] Roopa Almonte MD Unavailable [phone] Augustine Callaway MD Unavailable Daylin Ludwig EP Unavailable Daylin Ludwig EP Unavailable [phone] Shahida Sutton APRN FIELD SUPPORT ENGINEER Unavailable Un available Marilin Montaño FIELD SUPPORT ENGINEER Unavailable [phone] Esha Dewitt MD Unavailable [phone] Heather Mosquera MD Unavailable [phone] Paula Reza MD Unavailable Esha Dewitt MD Unavailable [phone] Valdo Escamilla PA-C Unavailable Nohelia Abarca-C Unavailable [phone] Heather Mosquera MD Unavailable [phone] Fawad York MD Unavailable [phone] Encounter Details Date Type Department Care Team (Late st Contact Info) Description 08/23/2022 MyC Medical Advice [facility] [address] [facility] [address] [place] [address] Carmen Prince, LAUNDRY MACHINE MECHANIC Social History Tobacco Use Types Packs/Day Years [...] to Optimize Self-Care Behaviors 90%(03/23/19 3:12 PM SPRAY GUN REPAIRER) Angelita Diaz RD Note: I will check [...] documented as of this encounter Care Teams Stock Or Delivery Clerk Relationship Specialty Start Date End Date Paula Reza MD [address] [facility] 200 [place] [address] PCP - General Internal Medicine 08/05/21 Roopa Almonte MD [address] [address] Endocrinology, Diabetes, and Metabolism 01/19/21 Maryse Burton, PA-C 5200 [place] [address] Physician Laborer Prestressed Concrete Dermatology 04/14/21 Roopa Almonte MD [address] [address] Hospitalist Endocrinology, Diabetes, and Metabolism 05/30/21 Griffin Joshi MD [address] [facility] [address] [place] [address] Cardiovascular Disease 07/25/21 Roopa Almonte MD [address] 200 [place], [place] [address] Assigned Endocrinology Provider 09/10/21 [place] [address] [facility] 300 [place] [address] Assigned Musculoskeletal Provider 10/15/21 04/26/23 Daylin Ludwig EP [facility] [address] [id number] Cardiac Rehabilitation Therapist 05/16/23 Daylin Ludwig EP [facility] [address] [place] [address] Cardiac Rehabilitation Therapist 06/08/22 06/09/23 Shahida Sutton, DUANE FIELD SUPPORT ENGINEER Assigned PCP 07/08/22 09/08/22 Marilin Montaño, FIELD SUPPORT ENGINEER [address] [place], [place] [address] Assigned Heart and Vascular Provider 08/05/22 Esha Dewitt MD [address] [facility] 36 [place], [place] [address] MD Gastroenterology 09/06/22 Heather Mosquera MD [address] [place] [address]85 Internal Medicine 09/06/22 Paula Reza MD [address] [facility] 200 [place], [place] [address] Assigned PCP 09/09/22 01/05/23 Esha Dewitt MD [address] [facility] 36 [place], [place] [address] Assigned Gastroenterology Provider 09/23/22 Valdo Escamilla PA-C [address] [place] [address] Assigned Neuroscience Provider 09/30/22 Nohelia Abarca PA-C 2450 [place] [address] Physician Laborer Prestressed Concrete Gastroenterology 10/03/22 Heather Mosquera MD [address]45 [facility] 150 [place], [place] [address] Assigned PCP 01/06/23 Fawad York MD 909 [place], [place] [address] Assigned Musculoskeletal Provider 04/27/23 06/25/23 documented as of this encounter
--- OUTSIDE RECORDS SUMMARY | 2023-09-18 13:47 | XMS_ITS | Encounter Summary ---
Author Organization [place] Address [address] [place] [address] Care Team Providers Care Emotional Disabilities Teacher Name Role Phone Roopa Almonte MD Unavailable [phone] Maryse Burton PA-C Unavailable [phone] Roopa Almonte MD Unavailable [phone] Griffin Joshi MD Unavailable Rina Magallon RN Unavailable [phone] Paula Reza MD Primary Care Provider [phone] Roopa Almonte MD Unavailable [phone] Rosa Maria Love Unavailable [phone] Augustine Callaway MD Unavailable Porsha Michaels APRN CHILD NURSE Unavailable [phone] Shahida Sutton APRN CHILD NURSE Unavailable Un available Daylin Ludwig Unavailable [phone] Laurel Velasquez MD Unavailable [phone] Daylin Ludwig Unavailable [phone] Paula Reza MD Unavailable Porsha Michaels APRN CHILD NURSE Unavailable RonAerlyyemi Sands MD Unavailable [phone] Shahida Sutton APRN CHILD NURSE Unavailable Un available Marilin Montaño CHILD NURSE Unavailable Esha Dewitt MD Unavailable [phone] EvelineHeather pastrana MD Unavailable [phone] Paula Reza MD Unavailable Esha Dewitt MD Unavailable [phone] Valdo Escamilla PA-C Unavailable [phone] Nohelia Abarca-C Unavailable Heather Mosquera MD Unavailable Fawad York MD Unavailable Encounter Details Date Type Department Care Team (Late st Contact Info) Description 04/18/2022 [facility] Medical Advice [address] [place] [address] Sonia Neal, RN Social History Tobacco Use Types Packs/Day [...] suspected to have Coronavirus/COVID-19? No / Unsure 04/12/2022 3:43 PM RESEARCH LAB ASSISTANT documented as of this encounter Plan of [...] to Optimize Self-Care Behaviors 90%(03/23/19 3:12 PM RESEARCH LAB ASSISTANT) Angelita Diaz RD Note: I will check [...] documented as of this encounter Care Teams Emotional Disabilities Teacher Relationship Specialty Start Date End Date Paula Reza MD [address] [place], [place] [address] PCP - General Internal Medicine 08/05/21 Roopa Almonte MD [address] [facility] 200 [place] [address] Endocrinology, Diabetes, and Metabolism 01/19/21 Maryse Burton, PAAna MariaC 5200 [place] [address] Physician Research Administrator Dermatology 04/14/21 Ropoa Almonte MD [address] [facility] 200 [place] [address] Hospitalist Endocrinology, Diabetes, and Metabolism 05/30/21 Griffin Joshi MD [address] [facility] [address] [place] [address] Cardiovascular Disease 07/25/21 Rina Magallon, RN Lead Adult High School Instructor 07/29/21 07/11/22 Roopa Almonte MD [address] [facility] 200 [place] [address] Assigned Endocrinology Provider 09/10/21 Kate Rosa Maria, CHW Community Health Worker 10/06/21 07/11/22 [place] [address] [facility] 300 [place] [address] Assigned Musculoskeletal Provider 10/15/21 04/26/23 Porsha Michaels APRN CHILD NURSE [address] [address] Assigned Heart and Vascular Provider 02/11/22 05/12/22 Shahida Sutton APRN CHILD NURSE [address] [address] Assigned PCP 04/08/22 06/30/22 Daylin Ludwig EP [facility] [address] [address] Cardiac Rehabilitation Therapist 05/16/23 Laurel Velasquez MD [address] [address] Assigned Heart and Vascular Provider 05/13/22 06/30/22 Daylin Ludwig EP [facility] [address] [address] Cardiac Rehabilitation Therapist 06/08/22 06/09/23 Paula Reza MD [address] [place] [address] Assigned PCP 07/01/22 07/07/22 Porsha Michaels APRN CHILD NURSE [address] [place] [address] Assigned Heart and Vascular Provider 07/01/22 07/07/22 Laurel Velasquez MD [address] [place] [address] Assigned Heart and Vascular Provider 07/08/22 08/04/22 Shahida Sutton APRN CHILD NURSE Assigned PCP 07/08/22 09/08/22 Marilin Montaño CHILD NURSE [address] [place] [address] Assigned Heart and Vascular Provider 08/05/22 Esha Dewitt MD [address] [place] [address] Gastroenterology 09/06/22 Heather Mosquera MD [address] [place] [address] Internal Medicine 09/06/22 Paula Reza MD [address] [place], [place] [address] Assigned PCP 09/09/22 01/05/23 Esha Dewitt MD [address] [place] [address] Assigned Gastroenterology Provider 09/23/22 Valdo Escamilla PA-C [address] [facility] 103 [place] [address] Assigned Neuroscience Provider 09/30/22 Nohelia Abarca PA-C [address] [place], [place] [address] Physician Research Administrator Gastroenterology 10/03/22 Heather Mosquera MD 6545 [facility] 150 [place], [place] [address] Assigned PCP 01/06/23 Fawad York MD 909 [place], [place] [address] Assigned Musculoskeletal Provider 04/27/23 06/25/23 documented as of this encounter
--- OUTSIDE RECORDS SUMMARY | 2023-09-18 13:48 | XMS_ITS | Encounter Summary ---
Author Organization [place] Address [address] [place] [address] Care Team Providers Care Academic Support Assistant Name Role Phone Shahida Suttontim ZEPEDA CNP Unavailable Un available Roopa Almonte MD Unavailable [phone] Augustine Callaway MD Unavailable Maryse Burton PA-C Unavailable Roopa Almonte MD Unavailable [phone] Griffin Joshi MD Unavailable Rina Magallon RN Unavailable [phone] Paula Reza MD Primary Care Provider [phone] Griffin Joshi MD Unavailable Roopa Almonte MD Unavailable [phone] Basilio Morillo DO Unavailable [phone] Lydia BernsteinC Unavailable Rosa Maria Love Unavailable [phone] Augustine Callaway MD Unavailable Paula Reza MD Unavailable Keerthi Miner APRN IT RECRUITER Unavailable [phone] Herman, Shahida Cummings APRN IT RECRUITER Unavailable Un available Porsha Michaels APRN IT RECRUITER Unavailable +[phone] Paula Reza MD Unavailable Herman, Shahida Cummings APRN IT RECRUITER Unavailable Un available Daylin Ludwig Unavailable [phone] Laurel Velasquez MD Unavailable [phone] Daylin Ludwig Unavailable [phone] Paula Reza MD Unavailable Porsha Michaels APRN IT RECRUITER Unavailable [phone] Laurel Velasquez MD Unavailable [phone] Herman, Shahida Cummings APRN IT RECRUITER Unavailable Un available Marilin Montaño IT RECRUITER Unavailable [phone] Esha Dewitt MD Unavailable [phone] Heather Mosquera MD Unavailable [phone] Paula Reza MD Unavailable Esha Dewitt MD Unavailable [phone] Valdo Escamilla PA-C Unavailable + [phone] Nohelia Abarca PA-C Unavailable [phone] Heather Mosquera MD Unavailable [phone] Fawad York MD Unavailable [phone] Reason for Visit * Reason Comments Medication Refill Encounter Details Date Type Department Care Team (Late st Contact Info) Description 08/17/[address] [address] Shahida Sutton APRN CNP Medication Refill Social History Tobacco Use Types Packs/Day Years Used Date Smoking Tobacco: Former Cigarettes Q uit: 12/09/2006 Cigars Smokeless Tobacco: Never Alcohol Use Standard Drinks/Week Comments Not Currently 0 (1 standard drink = 0.6 oz pur e alcohol) Very Occasionally Overall Financial Resource Strain (CARDIA) Answe r Date Recorded How hard is it for you to pa y for the very basics like food, housing, medical care, and heating? Not hard at all 07/29/2021 PHQ-2 Answer Date Recorded PHQ-2 Score 0 07/25/2021 Hunger Vital Sign Answer Date Recorded Within [...] suspected to have Coronavirus/COVID-19? No / Unsure 08/05/2021 10:39 AM CDT documented as of this encounter Plan of Treatment Not on file documented as of this encounter Visit Diagnoses Diagnosis Type 2 diabetes mellitus with diabetic nephropathy, with long-term current use of insulin (H) documented in this encounter Additional Health Concerns Infection Onset Date Last Indicated Resolved Time ESBL 01/05/2021 01/05/2021 Assessment Noted Time PHQ-9 Depression Total Score: 10 022 7:02 AM CDT documented as of this encounter Care Teams Academic Support Assistant Relationship Specialty Start Date End Date Paula Reza MD [address] [facility] 200 [place] [address] PCP - General Internal Medicine 08/05/21 Shahida Sutton APRN IT RECRUITER Assigned PCP 07/12/14 09/30/21 Roopa Almonte MD [address] [facility] 200 [place] [address] Endocrinology, Diabetes, and Metabolism 01/19/21 [place] [address] [facility] 300 [place] [address] Assigned Musculoskeletal Provider 02/06/21 09/16/21 Maryse Burton PA-C 5200 [place] [address] Physician Wax Ball Knock Out Worker Dermatology 04/14/21 Roopa Almonte MD [address] [facility] 200 [place] [address] Hospitalist Endocrinology, Diabetes, and Metabolism 05/30/21 Griffin Joshi MD [address] [facility] [address] [place] [address] Cardiovascular Disease 07/25/21 Rina Magallon, RN Lead Machine Strap Buckler 07/29/21 07/11/22 Griffin Joshi MD [address] [facility] [address] [place] [address] Assigned Heart and Vascular Provider 08/06/21 10/07/21 Roopa Almonte MD [address] [facility] 200 [place], [place] [address] Assigned Endocrinology Provider 09/10/21 [place] [address] [facility] [address] Assigned Musculoskeletal Provider 09/17/21 10/14/21 Lydia Bernstein PA-C [address] [place] [address] Assigned PCP 10/01/21 10/21/21 Rosa Maria Love Cristina Community Health Worker 10/06/21 07/11/22 [place] [address] [place] [address] Assigned Musculoskeletal Provider 10/15/21 04/26/23 Paula Reza MD [address] [place] [address] Assigned PCP 10/22/21 12/23/21 Keerthi Miner APRN IT RECRUITER [address] [place] [address] Assigned Heart and Vascular Provider 10/08/21 02/10/22 Shahida Sutton, PIN CLEANER IT RECRUITER Assigned PCP 12/24/21 03/24/22 Porsha Michaels APRN IT RECRUITER [address] [address] Assigned Heart and Vascular Provider 02/11/22 05/12/22 Paula Reza MD [address] [place] [address] Assigned PCP 03/25/22 04/07/22 Shahida Sutton APRN IT RECRUITER [address] [address] Assigned PCP 04/08/22 06/30/22 Daylin Ludwig, [facility] [address] [address] Cardiac Rehabilitation Therapist 05/16/23 Laurel Velasquez MD [address] [address] Assigned Heart and Vascular Provider 05/13/22 06/30/22 Daylin Ludwig, [facility] [address] [address] Cardiac Rehabilitation Therapist 06/08/22 06/09/23 Paula Reza MD [address] [facility] 200 [place] [address] Assigned PCP 07/01/22 07/07/22 Porsha Michaels APRN IT RECRUITER [address] [address] Assigned Heart and Vascular Provider 07/01/22 07/07/22 Laurel Velasquez MD [address] [address] Assigned Heart and Vascular Provider 07/08/22 08/04/22 Shahida Sutton APRN IT RECRUITER Assigned PCP 07/08/22 09/08/22 Marilin Montaño, IT RECRUITER [address] [place] [address] Assigned Heart and Vascular Provider 08/05/22 Esha Dewitt MD 420 [facility] 36 [place], [place] [address] Gastroenterology 09/06/22 Heather Mosquera MD [address] [place] [address] Internal Medicine 09/06/22 Paula Reza MD [address] [facility] 200 [place], [place] [address] Assigned PCP 09/09/22 01/05/23 Esha Dewitt MD 420 [facility] 36 [place], [place] [address] Assigned Gastroenterology Provider 09/23/22 Valdo Escamilla PA-C [address] [place] [address] Assigned Neuroscience Provider 09/30/22 Nohelia Abarca PA-C [address] [place] [address] Physician Wax Ball Knock Out Worker Gastroenterology 10/03/22 Heather Mosquera MD [address] [place] [address] Assigned PCP 01/06/23 Fawad York MD 909 [place] [address] Assigned Musculoskeletal Provider 04/27/23 06/25/23 documented as of this encounter
--- OUTSIDE RECORDS SUMMARY | 2023-09-18 13:48 | XMS_ITS | Encounter Summary ---
Author Organization [place] Address [address] [place] [address] Care Team Providers Care Project Management Analyst Name Role Phone Shahida Suttontim ZEPEDA CNP Unavailable Un available Roopa Alomnte MD Unavailable [phone] Augustine Callaway MD Unavailable Maryse Burton PA-C Unavailable Roopa Almonte MD Unavailable [phone] Griffin Joshi MD Unavailable Rina Magallon RN Unavailable [phone] Paula Reza MD Primary Care Provider [phone] Griffin Joshi MD Unavailable Roopa Almonte MD Unavailable [phone] Basilio Morillo DO Unavailable Lydia BernsteinC Unavailable Rosa Maria Love Unavailable [phone] Augustine Callaway MD Unavailable Paula Reza MD Unavailable Keerthi Miner APRN SCIENTIFIC RESEARCH MANAGER Unavailable Herman, Shahida Cummings APRN SCIENTIFIC RESEARCH MANAGER Unavailable Un available Porsha Michaels APRN SCIENTIFIC RESEARCH MANAGER Unavailable [phone] Paula Reza MD Unavailable Herman, Shahida Cummings APRN SCIENTIFIC RESEARCH MANAGER Unavailable Un available Daylin Ludwig Unavailable [phone] Laurel Velasquez MD Unavailable [phone] Daylin Ludwig EP Unavailable [phone] Paula Reza MD Unavailable Porsha Michaels APRN SCIENTIFIC RESEARCH MANAGER Unavailable [phone] Laurel Velasquez MD Unavailable Herman, Shahida Cummings APRN SCIENTIFIC RESEARCH MANAGER Unavailable Un available Marilin Montaño SCIENTIFIC RESEARCH MANAGER Unavailable [phone] Esha Dewitt MD Unavailable [phone] Heather Mosquera MD Unavailable Paula Reza MD Unavailable Esha Dewitt MD Unavailable [phone] Valdo Escamilla PA-C Unavailable +[phone] Nohelia Abarca PA-C Unavailable [phone] Heather Mosquera MD Unavailable [phone] Fawad York MD Unavailable [phone] Encounter Details Date Type Department Care Team (Late st Contact Info) Description 09/08/2021 MyC Medical Advice [place] [address] [address] Denisse Gamboa, RN Social History Tobacco Use Types Packs/Day [...] PHQ-2 Answer Date Recorded PHQ-2 Score 2 09/06/2021 Hunger Vital Sign Answer Date Recorded Within [...] filedocumented in this encounter Additional Health Concerns Infection Onset Date Last Indicated Resolved Time ESBL 01/05/2021 01/05/2021 Assessment Noted Time PHQ-9 Depression Total Score: 10 022 7:02 AM CDT documented as of this encounter Care Teams Project Management Analyst Relationship Specialty Start Date End Date Paula Reza MD [address] [place] [address] PCP - General Internal Medicine 08/05/21 Shahida Sutton APRN SCIENTIFIC RESEARCH MANAGER Assigned PCP 07/12/14 09/30/21 Roopa Almonte MD [address] [place] [address] Endocrinology, Diabetes, and Metabolism 01/19/21 [place] [address] [facility] 300 [place] [address] Assigned Musculoskeletal Provider 02/06/21 09/16/21 Maryse Burton PA-C 5200 [place] [address] Physician Jewelry Sales Coordinator Dermatology 04/14/21 Roopa Almonte MD [address] [facility] 200 [place] [address] Hospitalist Endocrinology, Diabetes, and Metabolism 05/30/21 Griffin Joshi MD [address] [facility] [address] [place] [address] Cardiovascular Disease 07/25/21 Rina Magallon, RN Lead Machine Shop Instructor 07/29/21 07/11/22 Griffin Joshi MD [address] [facility] [address] [place] [address] Assigned Heart and Vascular Provider 08/06/21 10/07/21 Roopa Almonte MD [address] [facility] 200 [place], [place] [address] Assigned Endocrinology Provider 09/10/21 [place] [address] [facility] [address] [place] [address] Assigned Musculoskeletal Provider 09/17/21 10/14/21 Lydia Bernstein PA-C [address] [place] [address] Assigned PCP 10/01/21 10/21/21 Rosa Maria Love W Community Health Worker 10/06/21 07/11/22 [place] [address] [address] [place] [address] Assigned Musculoskeletal Provider 10/15/21 04/26/23 Paula Reza MD [address] [place] [address] Assigned PCP 10/22/21 12/23/21 Keerthi Miner APRN SCIENTIFIC RESEARCH MANAGER [address] [place] [address] Assigned Heart and Vascular Provider 10/08/21 02/10/22 Shahida Sutton APRN SCIENTIFIC RESEARCH MANAGER Assigned PCP 12/24/21 03/24/22 Porsha Michaels APRN SCIENTIFIC RESEARCH MANAGER [address] [place] [address] Assigned Heart and Vascular Provider 02/11/22 05/12/22 Paula Reza MD [address] [place] [address] Assigned PCP 03/25/22 04/07/22 Shahida Sutton APRN SCIENTIFIC RESEARCH MANAGER [address] [place] [address] Assigned PCP 04/08/22 06/30/22 Daylin Ludwig EP [facility] [address] [place] [address] Cardiac Rehabilitation Therapist 05/16/23 Laurel Velasquez MD [address] [place] [address] Assigned Heart and Vascular Provider 05/13/22 06/30/22 Daylin Ludwig, EP [facility] [address] [place] [address] Cardiac Rehabilitation Therapist 06/08/22 06/09/23 Paula Reza MD [address] [address] Assigned PCP 07/01/22 07/07/22 Porsha Michaels APRN SCIENTIFIC RESEARCH MANAGER [address] [place] [address] Assigned Heart and Vascular Provider 07/01/22 07/07/22 Laurel Velasquez MD [address] [place] [address] Assigned Heart and Vascular Provider 07/08/22 08/04/22 Shahida Sutton APRN SCIENTIFIC RESEARCH MANAGER Assigned PCP 07/08/22 09/08/22 Marilin Montaño, SCIENTIFIC RESEARCH MANAGER [address] [place] [address] Assigned Heart and Vascular Provider 08/05/22 Esha Dewitt MD [address] [address] Gastroenterology 09/06/22 Heather Mosquera MD 6545 [facility] 150 [place] [address] Internal Medicine 09/06/22 Paula Reza MD [address] [facility] 200 [place] [address] Assigned PCP 09/09/22 01/05/23 Esha Dewitt MD [address] [address] Assigned Gastroenterology Provider 09/23/22 Valdo Escamilla PA-C 6363 [facility] 103 [place] [address] Assigned Neuroscience Provider 09/30/22 Nohelia Abarca PA-C [address]50 [place] [address] Physician Jewelry Sales Coordinator Gastroenterology 10/03/22 Heather Mosquera MD 6545 [facility] 150 [place] [address] Assigned PCP 01/06/23 Fawad York MD 909 [place], [place] [address] Assigned Musculoskeletal Provider 04/27/23 06/25/23 documented as of this encounter
--- OUTSIDE RECORDS SUMMARY | 2023-09-18 13:48 | XMS_ITS | Encounter Summary ---
Author Organization [facility] Address [address] [place] [address] Care Team Providers Care Airplane Patroller Name Role Phone Shahida Suttontim ZEPEDA CNP Unavailable Un available Roopa Almonte MD Unavailable [phone] Augustine Callaway MD Unavailable Maryse Burton PA-C Unavailable Roopa Almonte MD Unavailable [phone] Griffin Joshi MD Unavailable Rina Magallon RN Unavailable [phone] Paula Reza MD Primary Care Provider [phone] Griffin Joshi MD Unavailable Roopa Almonte MD Unavailable [phone] Basilio Morillo DO Unavailable [phone] Lydia BernsteinC Unavailable Rosa Maria Love Unavailable [phone] Augustine Callaway MD Unavailable Paula Reza MD Unavailable Keerthi Miner BOX SORTER DELIVERY CLERK Unavailable Herman, Shahida Cummings APRN DELIVERY CLERK Unavailable Un available Porsha Michaels APRN DELIVERY CLERK Unavailable [phone] Paula Reza MD Unavailable Herman, Shahida Cummings APRN DELIVERY CLERK Unavailable Un available Daylin Ludwig Unavailable [phone] Laurel Velasquez MD Unavailable [phone] Daylin Ludwig EP Unavailable [phone] Paula Reza MD Unavailable Porsha Michaels APRN DELIVERY CLERK Unavailable [phone] Laurel Velasquez MD Unavailable [phone] Herman, Shahida Cummings APRN DELIVERY CLERK Unavailable Un available Marilin Montaño DELIVERY CLERK Unavailable [phone] Esha Dewitt MD Unavailable [phone] Heather Mosquera MD Unavailable [phone] Paula Reza MD Unavailable Esha Dewitt MD Unavailable [phone] Valdo Escamilla PA-C Unavailable + [phone] Nohelia Abarca PA-C Unavailable [phone] Heather Mosquera MD Unavailable [phone] Fawad York MD Unavailable [phone] Encounter Details Date Type Department Care Team (Late st Contact Info) Description 08/09/2021 MyC Medical Advice [facility] [address] [place] [id number] Jessica Lemus RN Social History Tobacco Use Types Packs/Day [...] documented as of this encounter Care Teams Airplane Patroller Relationship Specialty Start Date End Date Paula Reza MD [address] [facility] 200 [place] [address] PCP - General Internal Medicine 08/05/21 Shahida Sutton APRN DELIVERY CLERK Assigned PCP 07/12/14 09/30/21 Roopa Almonte MD [address] [facility] 200 [place] [address] Endocrinology, Diabetes, and Metabolism 01/19/21 [place] [address] [facility] 300 [place] [address] Assigned Musculoskeletal Provider 02/06/21 09/16/21 Maryse Burton PA-C 5[address] [place] [address] Physician Database Programmer Analyst Dermatology 04/14/21 Roopa Almonte MD [address] [facility] 200 [place] [address] Hospitalist Endocrinology, Diabetes, and Metabolism 05/30/21 Griffin Joshi MD [address] [facility] [address] [place] [address] Cardiovascular Disease 07/25/21 Rina Magallon, RN Lead Missile Mechanic 07/29/21 07/11/22 Griffin Joshi MD [address] [facility] [address] [place] [address] Assigned Heart and Vascular Provider 08/06/21 10/07/21 Roopa Almonte MD [address] [facility] 200 [place], [place] [address] Assigned Endocrinology Provider 09/10/21 [place] [address] [facility] [place] [address] Assigned Musculoskeletal Provider 09/17/21 10/14/21 Lydia Bernstein PA-C [address] [place] [address] Assigned PCP 10/01/21 10/21/21 Rosa Maria Love CHW Community Health Worker 10/06/21 07/11/22 [place] [address] [place] [address] Assigned Musculoskeletal Provider 10/15/21 04/26/23 Paula Reza MD [address] [place] [address] Assigned PCP 10/22/21 12/23/21 Keerthi Miner APRN DELIVERY CLERK [address] [place] [address] Assigned Heart and Vascular Provider 10/08/21 02/10/22 Shahida Sutton APRN DELIVERY CLERK Assigned PCP 12/24/21 03/24/22 Porsha Michaels APRN DELIVERY CLERK [address] [place] [address] Assigned Heart and Vascular Provider 02/11/22 05/12/22 Paula Reza MD [address] [place] [address] Assigned PCP 03/25/22 04/07/22 Shahida Sutton APRN DELIVERY CLERK [address] [place] [address] Assigned PCP 04/08/22 06/30/22 Daylin Ludwig, [facility] [address] [place] [address] Cardiac Rehabilitation Therapist 05/16/23 Laurel Velasquez MD [address] [place] [address] Assigned Heart and Vascular Provider 05/13/22 06/30/22 Daylin Ludwig, [facility] [address] [place] [address] Cardiac Rehabilitation Therapist 06/08/22 06/09/23 Paula Reza MD [address] 303487 Assigned PCP 07/01/22 07/07/22 Porsha Michaels APRN DELIVERY CLERK [address] [place] [address] Assigned Heart and Vascular Provider 07/01/22 07/07/22 Laurel Velasquez MD [address] [place] [address] Assigned Heart and Vascular Provider 07/08/22 08/04/22 Shahida Sutton, DUANE DELIVERY CLERK Assigned PCP 07/08/22 09/08/22 Marilin Montaño, DELIVERY CLERK [address] [place] [address] Assigned Heart and Vascular Provider 08/05/22 Esha Dewitt MD 420 [facility] 36 [place] [address] Gastroenterology 09/06/22 Heather Mosquera MD [address] [place] [address] Internal Medicine 09/06/22 Paula Reza MD [address] [facility] 200 [place] [address] Assigned PCP 09/09/22 01/05/23 Esha Dewitt MD [address] [address] Assigned Gastroenterology Provider 09/23/22 Valdo Escamilla PA-C [address] [facility] [address] [place] [address] Assigned Neuroscience Provider 09/30/22 Nohelia Abarca PA-C [address] [place] [address] Physician Database Programmer Analyst Gastroenterology 10/03/22 Heather Mosquera MD [address] [place], [place] [address] Assigned PCP 01/06/23 Fawad York MD [address] [place], [place] [address] Assigned Musculoskeletal Provider 04/27/23 06/25/23 documented as of this encounter
--- OUTSIDE RECORDS SUMMARY | 2023-09-18 13:48 | XMS_ITS | Encounter Summary ---
Author Organization [facility] Address [address] [place] [address] Care Team Providers Care Office Manager Name Role Phone Shahida Sutton APRN RADIO ELECTRONICS OFFICER Unavailable Un available Roopa Almonte MD Unavailable [phone] Maryse Burton PA-C Unavailable Roopa Almonte MD Unavailable [phone] Griffin Joshi MD Unavailable Rina Magallon RN Unavailable [phone] Paula Reza MD Primary Care Provider [phone] Griffin Joshi MD Unavailable Roopa Almonte MD Unavailable [phone] Basilio Morillo DO Unavailable Lydia BernsteinC Unavailable Rosa Maria Love Unavailable [phone] Augustine Callaway MD Unavailable Paula Reza MD Unavailable Keerthi Miner APRN RADIO ELECTRONICS OFFICER Unavailable [phone] Herman, Shahida Cummings APRN RADIO ELECTRONICS OFFICER Unavailable Un available Porsha Michaels APRN RADIO ELECTRONICS OFFICER Unavailable Paula Reaz MD Unavailable Herman, Shahida Cummings APRN RADIO ELECTRONICS OFFICER Unavailable Un available Daylin Ludwig Unavailable Laurel Velasquez MD Unavailable Daylin Ludwig Unavailable Paula Reza MD Unavailable Porsha Michaels APRN RADIO ELECTRONICS OFFICER Unavailable Laurel Velasquez MD Unavailable Herman, Shahida Cummings FILING WRITER RADIO ELECTRONICS OFFICER Unavailable Un available Marilin Montaño RADIO ELECTRONICS OFFICER Unavailable Esha Dewitt MD Unavailable [phone] Heather Mosquera MD Unavailable Paula Reza MD Unavailable Esha Dewitt MD Unavailable [phone] Valdo Escamilla PA-C Unavailable Nohelia Abarca PA-C Unavailable [phone] Heather Mosquera MD Unavailable Fawad York MD Unavailable Encounter Details Date Type Department Care Team (Late st Contact Info) Description 09/29/2021 MyC Medical Advice [facility] [place] [address] [facility] [address] [place] [address] [place] [address] [facility] [place] [address] Social History Tobacco Use Types Packs/Day Years [...] suspected to have Coronavirus/COVID-19? No / Unsure 09/30/2021 10:15 AM CDT documented as of this encounter Miscellaneous Notes * Telephone Encounter - Basilio Morillo DO - 09/29/2021 12:32 PM CDT Ok to extend per his request. Thanks. Basilio Morillo DO, CAQ * Telephone Encounter - Dalila Perez ATC - 09/29/2021 9:59 AM CDT Please advise on pended letter extending time off. Was scheduled for hip injection with Dr. Callaway on 09/21/21 but had to reschedule due to illness. Rescheduled on 10/07/[address] Callaway and patient is looking to be off of work from present to 10 days post-injection. Please advise. Dalila Perez ATC documented in this encounter Plan of Treatment Not on file documented as of this encounter Visit Diagnoses Not on filedocumented in this encounter Additional Health Concerns Infection Onset Date Last Indicated Resolved Time ESBL 01/05/2021 01/05/2021 Assessment Noted Time PHQ-9 Depression Total Score: 10 022 7:02 AM CDT documented as of this encounter Care Teams Office Manager Relationship Specialty Start Date End Date Paula Reza MD [address] [address] PCP - General Internal Medicine 08/05/21 Shahida Sutton APRN RADIO ELECTRONICS OFFICER Assigned PCP 07/12/14 09/30/21 Roopa Almonte MD [address] [facility] 200 [place] [address] Endocrinology, Diabetes, and Metabolism 01/19/21 Maryse Burton, [facility] [address] [place] [address] Physician Director Security Management Dermatology 04/14/21 Roopa Almonte MD [address] [facility] 200 [place] [address] Hospitalist Endocrinology, Diabetes, and Metabolism 05/30/21 Griffin Joshi MD [address] [facility] [address] [place], [place] [address] Cardiovascular Disease 07/25/21 Rina Magallon, RN Lead Manufacturing Engineer Automotive 07/29/21 07/11/22 Griffin Joshi MD [address] [place] [address] Assigned Heart and Vascular Provider 08/06/21 10/07/21 Roopa Almonte MD [address] [facility] 200 [place], [place] [address] Assigned Endocrinology Provider 09/10/21 [place] [address] [facility] [place] [address] Assigned Musculoskeletal Provider 09/17/21 10/14/21 Lydia Bernstein PA-C [address] [place] [address] Assigned PCP 10/01/21 10/21/21 Rosa Maria Love CHW Community Health Worker 10/06/21 07/11/22 [place] [address] [facility] 300 [place] [address] Assigned Musculoskeletal Provider 10/15/21 04/26/23 Paula Reza MD [address] [facility] 200 [place], [place] [address] Assigned PCP 10/22/21 12/23/21 Keerthi Miner APRN RADIO ELECTRONICS OFFICER [address] [place] [address] Assigned Heart and Vascular Provider 10/08/21 02/10/22 Shahida Sutton APRN RADIO ELECTRONICS OFFICER Assigned PCP 12/24/21 03/24/22 Porsha Michaels APRN RADIO ELECTRONICS OFFICER [address] [place] [address] Assigned Heart and Vascular Provider 02/11/22 05/12/22 Paula Reza MD [address] [place] [address] Assigned PCP 03/25/22 04/07/22 Shahida Sutton APRN RADIO ELECTRONICS OFFICER [address] [place] [address] Assigned PCP 04/08/22 06/30/22 Daylin Ludwig, EP [facility] [address] [place] [address] Cardiac Rehabilitation Therapist 05/16/23 Laurel Velasquez MD [address] [place] [address] Assigned Heart and Vascular Provider 05/13/22 06/30/22 Daylin Ludwig, EP [facility] [address] [place] [id number] Cardiac Rehabilitation Therapist 06/08/22 06/09/23 Paula Reza MD [address] [place] [address] Assigned PCP 07/01/22 07/07/22 Porsha Michaels APRN RADIO ELECTRONICS OFFICER [address] [place] [address] Assigned Heart and Vascular Provider 07/01/22 07/07/22 Laurel Velasquez MD [address] [place] [address] Assigned Heart and Vascular Provider 07/08/22 08/04/22 Shahida Sutton, DUANE RADIO ELECTRONICS OFFICER Assigned PCP 07/08/22 09/08/22 Marilin Montaño, RADIO ELECTRONICS OFFICER [address] [place] [address] Assigned Heart and Vascular Provider 08/05/22 Esha Dewitt MD [address] [address] MD Gastroenterology 09/06/22 Heather Mosquera MD [address] [place] [address] Internal Medicine 09/06/22 Paula Reza MD [address] [facility] 200 [place], [place] [address] Assigned PCP 09/09/22 01/05/23 Esha Dewitt MD [address] [address] Assigned Gastroenterology Provider 09/23/22 Valdo Escamilla PA-C [address] [place] [address] Assigned Neuroscience Provider 09/30/22 Nohelia Abarca PA-C [address] [place] [address] Physician Director Security Management Gastroenterology 10/03/22 Heather Mosquera MD [address]45 [facility] 150 [place] [address] Assigned PCP 01/06/23 Fawad York MD [address] [place], [place] [address] Assigned Musculoskeletal Provider 04/27/23 06/25/23 documented as of this encounter
--- OUTSIDE RECORDS SUMMARY | 2023-09-18 13:48 | XMS_ITS | Encounter Summary ---
Author Organization [facility] Address [address] [place] [address] Care Team Providers Care Lighting Adviser Name Role Phone Roopa Almonte MD Unavailable [phone] Maryse Burton PA-C Unavailable [phone] Roopa Almonte MD Unavailable [phone] Griffin Joshi MD Unavailable Rina Magallon RN Unavailable [phone] Paula Reza MD Primary Care Provider [phone] Roopa Almonte MD Unavailable [phone] Rosa Maria Love Unavailable [phone] Augustine Callaway MD Unavailable Shahida Sutton APRN AUCTION ASSISTANT Unavailable Un available Porsha Michaels APRN AUCTION ASSISTANT Unavailable [phone] Paula Reza MD Unavailable Shahida Sutton APRN AUCTION ASSISTANT Unavailable Un available Daylin Ludwig Unavailable [phone] Laurel Velasquez MD Unavailable [phone] Daylin Ludwig Unavailable [phone] Paula Reza MD Unavailable Porsha Michaels APRN AUCTION ASSISTANT Unavailable [phone] Laurel Velasquez MD Unavailable [phone] Shahida Sutton WELLNESS ASSISTANT AUCTION ASSISTANT Unavailable Un available Marilin Montaño AUCTION ASSISTANT Unavailable [phone] Esha Dewitt MD Unavailable [phone] Heather Mosquera MD Unavailable [phone] Paula Reza MD Unavailable Esha Dewitt MD Unavailable [phone] Valdo Escamilla PA-C Unavailable [phone] Nohelia Abarca PA-C Unavailable [phone] Heather Mosuqera MD Unavailable [phone] Fawad York MD Unavailable [phone] Reason for Visit * Reason Onset Date Comments Refill Request 03/01/2022 zolpidem ER (AMB IEN CR) 12.5 MG CR tablet Encounter Details Date Type Department Care Team (Late st Contact Info) Description 03/01/[address] [place] [address] Paula Reza MD [address] [facility] 200 [place] [address] Refill Request (zolpidem ER (AMBIEN CR) 12.5 MG CR tablet) Social History Tobacco Use Types Packs/Day Years [...] suspected to have Coronavirus/COVID-19? No / Unsure 02/21/2022 12:25 PM DELICATESSEN MANAGER documented as of this encounter Miscellaneous Notes * Telephone Encounter - Shayla Callahan RN - 03/02/2022 1:14 PM CST Routing refill request to provider for review/approval because: Drug not [place] [facility] [place] Shayla Callahan RN, BSN CATESSEN MANAGER documented in this encounter Plan of Treatment [...] Optimize Self-Care Behaviors 90%(03/23/19 23 3:12 PM DELICATESSEN MANAGER) Angelita Diaz RD Note: I will [...] as of this encounter Visit Diagnoses Diagnosis Insomnia, unspecified type documented in this encounter Additional Health Concerns Active Problems Noted Date Diagnosed Date HbA1C Not In Goal 02/23/2022 Diabetes Self-Management Edu cation Needed to Optimize Self-Care Behaviors 02/23/2022 Infection Onset Date Last Indicated Resolved Time ESBL 01/05/2021 01/05/2021 Assessment Noted Time PHQ-9 Depression Total Score: 7 01/04/20 22 4:11 PM CDT documented as of this encounter Care Teams Lighting Adviser Relationship Specialty Start Date End Date Paula Reza MD [address] [place] [address] PCP - General Internal Medicine 08/05/21 Roopa Almonte MD [address] [facility] 200 [place] [address] Endocrinology, Diabetes, and Metabolism 01/19/21 Maryse Burton PA-C [address] [place] [address] Physician Auction Clerk Dermatology 04/14/21 Roopa Almonte MD [address] [facility] 200 [place], [place] [address] Hospitalist Endocrinology, Diabetes, and Metabolism 05/30/21 Griffin Joshi MD [address] [facility] [address] [place] [address] Cardiovascular Disease 07/25/21 Rina Magallon, RN Lead Sas Etl Developer 07/29/21 07/11/22 Roopa Almonte MD [address] [place] [address] 200 [place], [place] [address] Assigned Endocrinology Provider 09/10/21 Rosa Maria Love CHW Community Health Worker 10/06/21 07/11/22 [place] [address] [facility] 300 [place], [place] [address] Assigned Musculoskeletal Provider 10/15/21 04/26/23 Shahida Sutton APRN AUCTION ASSISTANT Assigned PCP 12/24/21 03/24/22 Porsha Michaels APRN AUCTION ASSISTANT [address] [place] [address] Assigned Heart and Vascular Provider 02/11/22 05/12/22 Paula Reza MD [address] [place] [address] Assigned PCP 03/25/22 04/07/22 Shahida Sutton APRN AUCTION ASSISTANT [address] [place] [address] Assigned PCP 04/08/22 06/30/22 Daylin Ludwig, [facility] [address] [place] [address] Cardiac Rehabilitation Therapist 05/16/23 Laurel Velasquez MD [address] [place] [address] Assigned Heart and Vascular Provider 05/13/22 06/30/22 Daylin Ludwig, [facility] [address] [place] [address] Cardiac Rehabilitation Therapist 06/08/22 06/09/23 Paula Reza MD [address] [place] [address] Assigned PCP 07/01/22 07/07/22 Porsha Michaels APRN AUCTION ASSISTANT [address] [place] [address] Assigned Heart and Vascular Provider 07/01/22 07/07/22 Laurel Velasquez MD [address] [place] [address] Assigned Heart and Vascular Provider 07/08/22 08/04/22 Shahida Sutton APRN AUCTION ASSISTANT Assigned PCP 07/08/22 09/08/22 Marilin Montaño, PAULA [address] [place] [address] Assigned Heart and Vascular Provider 08/05/22 Esha Dewitt MD 420 [facility] 36 [place] [address] MD Gastroenterology 09/06/22 Heather Mosquera MD [address] [place] [address] Internal Medicine 09/06/22 Paula Reza MD [address] [facility] 200 [place] [address] Assigned PCP 09/09/22 01/05/23 Esha Dewitt MD 420 [facility] 36 [place] [address] Assigned Gastroenterology Provider 09/23/22 Valdo Escamilla PA-C [address] [facility] [address] [place] [address] Assigned Neuroscience Provider 09/30/22 Nohelia Abarca PA-C [address] [facility] [place], [place] [address] Physician Auction Clerk Gastroenterology 10/03/22 Heather Mosquera MD [address] [place] [address] Assigned PCP 01/06/23 Fawad York MD [address] [place] [address] Assigned Musculoskeletal Provider 04/27/23 06/25/23 documented as of this encounter
--- OUTSIDE RECORDS SUMMARY | 2023-09-18 13:48 | XMS_ITS | Encounter Summary ---
Author Organization [facility] Address [address] [place] [address] Care Team Providers Care Care Transitions Nurse Name Role Phone Roopa Almonte MD Unavailable [phone] Maryse Burton PA-C Unavailable [phone] Roopa Almonte MD Unavailable [phone] Griffin Joshi MD Unavailable Rina Magallon RN Unavailable [phone] Paula Reza MD Primary Care Provider [phone] Roopa Almonte MD Unavailable [phone] Rosa Maria Love Unavailable [phone] Augustine Callaway MD Unavailable Paula Reza MD Unavailable Keerthi Miner APRN HEAD ANIMAL KEEPER Unavailable [phone] Shahida Sutton APRN HEAD ANIMAL KEEPER Unavailable Un available Porsha Michaels APRN HEAD ANIMAL KEEPER Unavailable [phone] Paula Reza MD Unavailable Shahida Sutton APRN HEAD ANIMAL KEEPER Unavailable Un available Daylin Ludwig Unavailable Laurel Velasquez MD Unavailable ParthDaylin hernandez Marquita [place] Unavailable Paula Reza MD Unavailable Brando, Kim DUANE HEAD ANIMAL KEEPER Unavailable Laurel Velasquez MD Unavailable Shahida Sutton AUDITOR APPRAISER HEAD ANIMAL KEEPER Unavailable Un available Marilin Montaño HEAD ANIMAL KEEPER Unavailable Esha Dewitt MD Unavailable Heather Mosquera MD Unavailable Paula Reza MD Unavailable Esha Dewitt MD Unavailable [phone] Valdo Escamilal PA-C Unavailable Nohelia Abarca PA-C Unavailable [phone] Heather Mosquera MD Unavailable Fawad York MD Unavailable [phone] Reason for Visit * Reason Onset Date Comments Call to schedule test 12/13/[address] scan Encounter Details Date Type Department Care Team (Late st Contact Info) Description 12/13/2021 Telephone [facility] Heart [place] [id number] [facility] [address] [place] [phone] Candi Parada MD [address] [facility] [place] [id number] Call to schedule test (Reschedule ct scan) Social History Tobacco Use Types Packs/Day Years [...] PHQ-2 Answer Date Recorded PHQ-2 Score 2 11/30/2021 Hunger Vital Sign Answer Date Recorded Within [...] suspected to have Coronavirus/COVID-19? No / Unsure 11/30/2021 10:17 AM CDT documented as of this encounter Miscellaneous Notes * Telephone Encounter - Amelie Jenkins - 12/13/2021 8:23 AM CDT [facility] Phone Message May a detailed message be left on voicemail: yes Reason for Call: Other: please call to reschdule ct tavr Action Taken: Other: cardiology Travel Screening: Not Applicable documented in this encounter Plan of Treatment Not on file documented as of this encounter Visit Diagnoses Not on filedocumented in this encounter Additional Health Concerns Infection Onset Date Last Indicated Resolved Time ESBL 01/05/2021 01/05/2021 Assessment Noted Time PHQ-9 Depression Total Score: 10 022 7:02 AM CDT documented as of this encounter Care Teams Care Transitions Nurse Relationship Specialty Start Date End Date Paula Reza MD [address] [facility] 200 [place] [address] PCP - General Internal Medicine 08/05/21 Roopa Almonte MD [address] [facility] 200 [place] [address] Endocrinology, Diabetes, and Metabolism 01/19/21 Maryse Burton, PAAna MariaC [address] [place] [address] Physician Lobster Catcher Dermatology 04/14/21 Roopa Almonte MD [address] [facility] 200 [place] [address] Hospitalist Endocrinology, Diabetes, and Metabolism 05/30/21 Griffin Joshi MD 6[address] [facility] [address] [place] [address] Cardiovascular Disease 07/25/21 Rina Magallon, RN Lead Cow Puncher 07/29/21 07/11/22 Roopa Almonte MD [address] 200 [place], [place] [address] Assigned Endocrinology Provider 09/10/21 Rosa Maria Love CHW Community Health Worker 10/06/21 07/11/22 [place] [address] [facility] 300 [place] [address] Assigned Musculoskeletal Provider 10/15/21 04/26/23 Paula Reza MD [address] 200 [place] [address] Assigned PCP 10/22/21 12/23/21 Keerthi Miner APRN HEAD ANIMAL KEEPER [address] [place] [address] Assigned Heart and Vascular Provider 10/08/21 02/10/22 Shahida Sutton APRN HEAD ANIMAL KEEPER Assigned PCP 12/24/21 03/24/22 Porsha Michaels APRN HEAD ANIMAL KEEPER [address] [address] Assigned Heart and Vascular Provider 02/11/22 05/12/22 Paula Reza MD [address] [place] [address] Assigned PCP 03/25/22 04/07/22 Shahida Sutton APRN HEAD ANIMAL KEEPER [address] [address] Assigned PCP 04/08/22 06/30/22 Daylin Ludwig, EP [facility] [address] [address] Cardiac Rehabilitation Therapist 05/16/23 Laurel Velasquez MD [address] [address] Assigned Heart and Vascular Provider 05/13/22 06/30/22 Daylin Ludwig, EP [facility] [address] [address] Cardiac Rehabilitation Therapist 06/08/22 06/09/23 Paula Reza MD [address] [place], [place] [address] Assigned PCP 07/01/22 07/07/22 Porsha Michaels APRN HEAD ANIMAL KEEPER [address] [place] [address] Assigned Heart and Vascular Provider 07/01/22 07/07/22 Laurel Velasquez MD [address] [place] [address] Assigned Heart and Vascular Provider 07/08/22 08/04/22 Shahida Sutton APRN HEAD ANIMAL KEEPER Assigned PCP 07/08/22 09/08/22 Marilin Montaño, HEAD ANIMAL KEEPER [address] [place] [address] Assigned Heart and Vascular Provider 08/05/22 Esha Dweitt MD [address] [place] [address] 36 [place], [place] [address] Gastroenterology 09/06/22 Heather Mosquera MD [address] [place] [address] Internal Medicine 09/06/22 Paula Reza MD [address] 200 [place] [address] Assigned PCP 09/09/22 01/05/23 Esha Dewitt MD [address] [facility] 36 [place], [place] [address] Assigned Gastroenterology Provider 09/23/22 Valdo Escamilla PA-C [address] [facility] [address] [place] [address] Assigned Neuroscience Provider 09/30/22 Nohelia Abarca PA-C [address] [place] [address] Physician Lobster Catcher Gastroenterology 10/03/22 Heather Mosquera MD [address] [place] [address] Assigned PCP 01/06/23 Fawad York MD [address] [place], [place] [address] Assigned Musculoskeletal Provider 04/27/23 06/25/23 documented as of this encounter
--- OUTSIDE RECORDS SUMMARY | 2023-09-18 13:48 | XMS_ITS | Encounter Summary ---
Author Organization [facility] Address [address] [place] [address] Care Team Providers Care Felt Finisher Name Role Phone Roopa Almonte MD Unavailable [phone] Maryse Burton PA-C Unavailable [phone] Roopa Almonte MD Unavailable [phone] Griffin Joshi MD Unavailable Rina Magallon RN Unavailable [phone] Paula Reza MD Primary Care Provider [phone] Roopa Almonte MD Unavailable [phone] Rosa Maria Love Unavailable [phone] Augustine Callaway MD Unavailable Shahida Sutton APRN LEASE PURCHASE TRUCK DRIVER Unavailable Un available Porsha Michaels APRN LEASE PURCHASE TRUCK DRIVER Unavailable [phone] Paula Reza MD Unavailable Shahida Sutton APRN LEASE PURCHASE TRUCK DRIVER Unavailable Un available Daylin Ludwig Unavailable [phone] Laurel Velasquez MD Unavailable [phone] Daylin Ludwig Unavailable [phone] Paula Reza MD Unavailable Porsha Michaels APRN LEASE PURCHASE TRUCK DRIVER Unavailable [phone] Laurel Velasquez MD Unavailable [phone] HermanIndu huertaprincess Cummings MODELING AGENCY MANAGER LEASE PURCHASE TRUCK DRIVER Unavailable Un available Marilin Montaño LEASE PURCHASE TRUCK DRIVER Unavailable [phone] Esha Dewitt MD Unavailable [phone] Heather Mosquera MD Unavailable [phone] Paula Reza MD Unavailable Esha Dewitt MD Unavailable [phone] Valdo Escamilla PA-C Unavailable [phone] Nohelia Abarca PA-C Unavailable [phone] Heather Mosquera MD Unavailable [phone] Fawad York MD Unavailable [phone] Encounter Details Date Type Department Care Team (Late st Contact Info) Description 03/13/2022 MyC Medical Advice [facility] [address] [address] Fawad York MD [address] [place] [address] Social History Tobacco Use Types Packs/Day [...] Coronavirus/COVID-19? No / Unsure 02/21/2022 12:25 PM NEWS CONTENT SPECIALIST documented as of this encounter Plan of [...] to Optimize Self-Care Behaviors 90%(03/23/19 3:12 PM NEWS CONTENT SPECIALIST) Angelita Diaz RD Note: I will [...] documented as of this encounter Care Teams Felt Finisher Relationship Specialty Start Date End Date Paula Reza MD [address] [address] PCP - General Internal Medicine 08/05/21 Roopa Almonte MD [address] [facility] 200 [place], [place] [address] Endocrinology, Diabetes, and Metabolism 01/19/21 Maryse Burton, PAAna MariaC [address] [place] [address] Physician Induction 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 Dermatology 04/14/21 Roopa Almonte MD [address] [facility] 200 [place], [place] [address] Hospitalist Endocrinology, Diabetes, and Metabolism 05/30/21 Griffin Joshi MD [address] [facility] [address] [place] [address] Cardiovascular Disease 07/25/21 Rina Magallon, RN Lead Application Development Director 07/29/21 07/11/22 Roopa Almonte MD [address] [facility] [facility] 200 [place], [place] [address] Assigned Endocrinology Provider 09/10/21 Rosa Maria Love W Community Health Worker 10/06/21 07/11/22 [place] [address] [facility] 300 [place] [address] Assigned Musculoskeletal Provider 10/15/21 04/26/23 Shahida Sutton APRN LEASE PURCHASE TRUCK DRIVER Assigned PCP 12/24/21 03/24/22 Porsha Michaels APRN LEASE PURCHASE TRUCK DRIVER [address] [address] Assigned Heart and Vascular Provider 02/11/22 05/12/22 Paula Reza MD [address] [place] [address] Assigned PCP 03/25/22 04/07/22 Shahida Sutton APRN LEASE PURCHASE TRUCK DRIVER [address] 200 [place] [address] Assigned PCP 04/08/22 06/30/22 Daylin Ludwig EP [facility] [address] [address] Cardiac Rehabilitation Therapist 05/16/23 Laurel Velasquez MD [address] 760595 Assigned Heart and Vascular Provider 05/13/22 06/30/22 Daylin Ludwig EP [facility] [address] 147795 Cardiac Rehabilitation Therapist 06/08/22 06/09/23 Paula Reza MD [address] [facility] 200 [place], [place] [address] Assigned PCP 07/01/22 07/07/22 Porsha Michaels APRN LEASE PURCHASE TRUCK DRIVER [address] [address] Assigned Heart and Vascular Provider 07/01/22 07/07/22 Laurel Velasquez MD [address] [place] [address] Assigned Heart and Vascular Provider 07/08/22 08/04/22 Shahida Sutton APRN LEASE PURCHASE TRUCK DRIVER Assigned PCP 07/08/22 09/08/22 Marilin Montaño, LEASE PURCHASE TRUCK DRIVER [address] [place] [address] Assigned Heart and Vascular Provider 08/05/22 Esha Dewitt MD [address] [place] [address] 36 [place], [place] [address] Gastroenterology 09/06/22 Heather Mosquera MD [address] [place] [address] Internal Medicine 09/06/22 Paula Reza MD [address] [place] [address] Assigned PCP 09/09/22 01/05/23 Esha Dewitt MD 420 [facility] 36 [place], [place] [address] Assigned Gastroenterology Provider 09/23/22 Valdo Escamilla PA-C [address] [facility] [address] [place], [place] [address] Assigned Neuroscience Provider 09/30/22 Nohelia Abarca PA-C 2450 [place], [place] [address] Physician Induction 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 Gastroenterology 10/03/22 Heather Mosquera MD [address] [place] [address] Assigned PCP 01/06/23 Fawad York MD 909 [place], [place] [address] Assigned Musculoskeletal Provider 04/27/23 06/25/23 documented as of this encounter
--- OUTSIDE RECORDS SUMMARY | 2023-09-18 13:48 | XMS_ITS | Encounter Summary ---
Author Organization [place] Address [address] [place] [address] Care Team Providers Care Gear Generator Set Up Operator Name Role Phone Roopa Almonte MD Unavailable [phone] Maryse Burton PA-C Unavailable [phone] Roopa Almonte MD Unavailable [phone] Griffin Joshi MD Unavailable Rina Magallon RN Unavailable [phone] Paula Reza MD Primary Care Provider [phone] Roopa Almonte MD Unavailable [phone] Rosa Maria Love Unavailable [phone] Augustine Callaway MD Unavailable Porsha Michaels APRN CLINICAL BUSINESS MANAGER Unavailable [phone] Paula Reza MD Unavailable Shahida Sutton APRN CLINICAL BUSINESS MANAGER Unavailable Un available Daylin Ludwig Unavailable [phone] Laurel Velasquez MD Unavailable [phone] Daylin Ludwig Unavailable [phone] Paula Reza MD Unavailable Brando, Kim DUANE CLINICAL BUSINESS MANAGER Unavailable Laurel Velasquez MD Unavailable Shahida Sutton INSULATION BOARD HEAD SAW OPERATOR CLINICAL BUSINESS MANAGER Unavailable Un available GerryyamilMarilin CLINICAL BUSINESS MANAGER Unavailable Esha Dewitt MD Unavailable [phone] Heather Mosquera MD Unavailable Paula Reza MD Unavailable Esha Dewitt MD Unavailable [phone] Valdo Escamilla PA-C Unavailable Nohelia Abarca-C Unavailable [phone] Heather Mosquera MD Unavailable [phone] Fawad York MD Unavailable [phone] Reason for Visit * Reason Onset Date Comments Appointment 03/29/2022 Reschedule TAVR Encounter Details Date Type Department Care Team (Late st Contact Info) Description 03/29/2022 Telephone [facility] [address] [address] Brady Lion MD Appointment (Reschedule TAVR) Social History Tobacco Use Types Packs/Day Years [...] * Telephone Encounter - Jaspal Barclay - 03/29/2022 10:06 AM CST [facility] Phone Message May a detailed message be left on voicemail: yes Reason for Call: Other: Pt called to reschedule a previously cancelled TAVR appt. Please call pt back to reschedule Action Taken: Other: Cardiology Travel Screening: Not Applicable Thank you! [facility] TIVE PHYSICAL EDUCATION TEACHER documented in this encounter Plan of Treatment [...] Optimize Self-Care Behaviors 90%(03/23/19 23 3:12 PM ADAPTIVE PHYSICAL EDUCATION TEACHER) Angelita Diaz RD Note: I will check my blood sugars 3x per day at meal times Taking Medication - patient is consistently taking medications as directed Care Plan Diabetes Self-Management Education Needed to Optimize Self-Care Behaviors No Angelita Pemberton RD Note: Reviewed importance of following plan [...] documented as of this encounter Care Teams Gear Generator Set Up Operator Relationship Specialty Start Date End Date Paula Reza MD [address] [facility] [address] [address] PCP - General Internal Medicine 08/05/21 Roopa Almonte MD [address] [address] Endocrinology, Diabetes, and Metabolism 01/19/21 Maryse Burton PAAna MariaC 5200 [place] [address] Physician Computer Numeric Control Setter Dermatology 04/14/21 Roopa Almonte MD [address] [facility] 200 [place] [address] Hospitalist Endocrinology, Diabetes, and Metabolism 05/30/21 Griffin Joshi MD [address] [facility] [address] [place] [address] Cardiovascular Disease 07/25/21 Rina Magallon, RN Lead Fruit And Vegetable Classer 07/29/21 07/11/22 Roopa Almonte MD [address] [facility] 200 [place], [place] [address] Assigned Endocrinology Provider 09/10/21 Rosa Maria Love CHW Community Health Worker 10/06/21 07/11/22 [place] [address] [facility] 300 [place] [address] Assigned Musculoskeletal Provider 10/15/21 04/26/23 Porsha Michaels APRN CLINICAL BUSINESS MANAGER [address] [place] [address] Assigned Heart and Vascular Provider 02/11/22 05/12/22 Paula Reza MD [address] [facility] 200 [place] [address] Assigned PCP 03/25/22 04/07/22 Shahida Sutton APRN CLINICAL BUSINESS MANAGER [address] [facility] 200 [place] [address] Assigned PCP 04/08/22 06/30/22 Daylin Ludwig EP [facility] [address] [address] Cardiac Rehabilitation Therapist 05/16/23 Laurel Velasquez MD [address] 077335 Assigned Heart and Vascular Provider 05/13/22 06/30/22 Daylin Ludwig EP [facility] [address] [address] Cardiac Rehabilitation Therapist 06/08/22 06/09/23 Paula Reza MD [address] [facility] 200 [place], [place] [address] Assigned PCP 07/01/22 07/07/22 Porsha Michaels APRN CLINICAL BUSINESS MANAGER [address] [address] Assigned Heart and Vascular Provider 07/01/22 07/07/22 Laurel Velasquez MD [address] [address] Assigned Heart and Vascular Provider 07/08/22 08/04/22 Shahida Sutton APRN CLINICAL BUSINESS MANAGER Assigned PCP 07/08/22 09/08/22 Marilin Montaño, CLINICAL BUSINESS MANAGER [address] 5374[address] Assigned Heart and Vascular Provider 08/05/22 Esha Dewitt MD [address] [place] [address] 36 [place], [place] [address] Gastroenterology 09/06/22 Heather Mosquera MD [address] [place], [place] [address] Internal Medicine 09/06/22 Paula Reza MD [address] [facility] 200 [place], [place] [address] Assigned PCP 09/09/22 01/05/23 Esha Dewitt MD [facility] 36 [place], [place] [address] Assigned Gastroenterology Provider 09/23/22 Valdo Escamilla PA-C [address] [facility] [address] [place], [place] [address] Assigned Neuroscience Provider 09/30/22 Nohelia Abarca PA-C [address] [place], [place] [address] Physician Computer Numeric Control Setter Gastroenterology 10/03/22 Heather Mosquera MD [address] [facility] [address] [place], [place] [address] Assigned PCP 01/06/23 Fawad York MD 909 [place] [address] Assigned Musculoskeletal Provider 04/27/23 06/25/23 documented as of this encounter
--- OUTSIDE RECORDS SUMMARY | 2023-09-18 13:48 | XMS_ITS | Encounter Summary ---
Author Organization [facility] Address [address] [place] [address] Care Team Providers Care Lockstitch Cup Setter Name Role Phone Shahida Suttontim ZEPEDA CNP Unavailable Un available Roopa Almonte MD Unavailable [phone] Augustine Callaway MD Unavailable Maryse Burton PA-C Unavailable Roopa Almonte MD Unavailable [phone] Griffin Joshi MD Unavailable Rina Magallon RN Unavailable [phone] Paula Reza MD Primary Care Provider [phone] Griffin Joshi MD Unavailable Roopa Almonte MD Unavailable [phone] Basilio Morillo DO Unavailable [phone] Lydia BernsteinC Unavailable Rosa Maria Love Unavailable [phone] Augustine Callaway MD Unavailable Paula Reza MD Unavailable Keerthi Miner HYDROLOGY TEACHER SUBWAY CONDUCTOR Unavailable [phone] Herman, Shahida Cummings APRN SUBWAY CONDUCTOR Unavailable Un available Porsha Michaels APRN SUBWAY CONDUCTOR Unavailable [phone] Paula Reza MD Unavailable Herman, Shahida Cummings APRN SUBWAY CONDUCTOR Unavailable Un available Daylin Ludwig Unavailable [phone] Laurel Velasquez MD Unavailable [phone] Daylin Ludwig EP Unavailable [phone] Paula Reza MD Unavailable Porsha Michaels APRN SUBWAY CONDUCTOR Unavailable +[phone] Laurel Velasquez MD Unavailable [phone] Herman, Shahida Cummings APRN SUBWAY CONDUCTOR Unavailable Un available Marilin Montaño SUBWAY CONDUCTOR Unavailable [phone] Esha Dewitt MD Unavailable [phone] Heather Mosquera MD Unavailable [phone] Paula Reza MD Unavailable Esha Dewitt MD Unavailable [phone] Valdo Escamilla PA-C Unavailable [phone] Nohelia Abarca PA-C Unavailable [phone] Heather Mosquera MD Unavailable [phone] Fawad York MD Unavailable [phone] Encounter Details Date Type Department Care Team (Late st Contact Info) Description 08/29/2021 [facility] [address] [address] [facility] Social History Tobacco Use Types Packs/Day Years [...] documented as of this encounter Care Teams Lockstitch Cup Setter Relationship Specialty Start Date End Date Paula Reza MD [address] [facility] 200 [place] [address] PCP - General Internal Medicine 08/05/21 Shahida Sutton APRN SUBWAY CONDUCTOR Assigned PCP 07/12/14 09/30/21 Roopa Almonte MD [address] [facility] 200 [place] [address] Endocrinology, Diabetes, and Metabolism 01/19/21 [place] [address] [facility] [place] 300 [place] [address] Assigned Musculoskeletal Provider 02/06/21 09/16/21 Maryse Burton PA-C [address]200 [place] [address] Physician Hemmer Automatic Dermatology 04/14/21 Roopa Almonte MD [address] [facility] 200 [place] [address] Hospitalist Endocrinology, Diabetes, and Metabolism 05/30/21 Griffin Joshi MD [address] [facility] [address] [place] [address] Cardiovascular Disease 07/25/21 Rina Magallon, RN Lead Machinist Supervisor Outside 07/29/21 07/11/22 Griffin Joshi MD [address] [facility] [address] [place] [address] Assigned Heart and Vascular Provider 08/06/21 10/07/21 Roopa Almonte MD [address] [facility] 200 [place], [place] [address] Assigned Endocrinology Provider 09/10/21 [place] [address] [facility] [address] [address] Assigned Musculoskeletal Provider 09/17/21 10/14/21 Lydia Bernstein PA-C [address] [place] [address] Assigned PCP 10/01/21 10/21/21 Rosa Maria Love CHW Community Health Worker 10/06/21 07/11/22 [place] [address] [place] [address] Assigned Musculoskeletal Provider 10/15/21 04/26/23 Paula Reza MD [address] 200 [place] [address] Assigned PCP 10/22/21 12/23/21 Keerthi Miner APRN SUBWAY CONDUCTOR [address] [place] [address] Assigned Heart and Vascular Provider 10/08/21 02/10/22 Shahida Sutton APRN SUBWAY CONDUCTOR Assigned PCP 12/24/21 03/24/22 Porsha Michaels APRN SUBWAY CONDUCTOR [address] [place] [address] Assigned Heart and Vascular Provider 02/11/22 05/12/22 Paula Reza MD [address] [place] [address] Assigned PCP 03/25/22 04/07/22 Shahida Sutton APRN SUBWAY CONDUCTOR [address] [place] [address] Assigned PCP 04/08/22 06/30/22 Daylin Ludwig, [facility] [address] [place] [address] Cardiac Rehabilitation Therapist 05/16/23 Laurel Velasquez MD [address] [place] [address] Assigned Heart and Vascular Provider 05/13/22 06/30/22 Daylin Ludwig, [facility] [address] [place] [address] Cardiac Rehabilitation Therapist 06/08/22 06/09/23 Paula Reza MD [address] 68[address] Assigned PCP 07/01/22 07/07/22 Porsha Michaels APRN SUBWAY CONDUCTOR [address] [place] [address] Assigned Heart and Vascular Provider 07/01/22 07/07/22 Laurel Velasquez MD [address] [place] [address] Assigned Heart and Vascular Provider 07/08/22 08/04/22 Shahida Sutton, DUANE SUBWAY CONDUCTOR Assigned PCP 07/08/22 09/08/22 Marilin Montaño, SUBWAY CONDUCTOR [address] [place] [address] Assigned Heart and Vascular Provider 08/05/22 Esha Dewitt MD 420 [facility] 36 [place] [address] Gastroenterology 09/06/22 Heather Mosquera MD [address] [place] [address] Internal Medicine 09/06/22 Paula Reza MD [address] [facility] 200 [place] [address] Assigned PCP 09/09/22 01/05/23 Esha Dewitt MD [address] [address] Assigned Gastroenterology Provider 09/23/22 Valdo Escamilla PA-C [address] [facility] [address] [place] [address] Assigned Neuroscience Provider 09/30/22 Nohelia Abarca PA-C 2450 [place] [address] Physician Hemmer Automatic Gastroenterology 10/03/22 Heather Mosquera MD [address] [place], [place] [address] Assigned PCP 01/06/23 Fawad York MD 909 [place], [place] [address] Assigned Musculoskeletal Provider 04/27/23 06/25/23 documented as of this encounter
--- OUTSIDE RECORDS SUMMARY | 2023-09-18 13:48 | XMS_ITS | Encounter Summary ---
Author Organization [facility] Address [address] [place] [address] Care Team Providers Care Towboat Captain Name Role Phone Roopa Almonte MD Unavailable [phone] Maryse Burton PA-C Unavailable [phone] Roopa Almonte MD Unavailable [phone] Griffin Joshi MD Unavailable Rina Magallon RN Unavailable [phone] Paula Reza MD Primary Care Provider [phone] Roopa Almonte MD Unavailable [phone] Rosa Maria Love Unavailable [phone] Augustine Callaway MD Unavailable Porsha Michaels APRN CHUTE TENDER Unavailable [phone] Paula Reza MD Unavailable Shahida Sutton APRN CHUTE TENDER Unavailable Un available Daylin Ludwig Unavailable [phone] Laurel Velasquez MD Unavailable [phone] Daylin Ludwig Unavailable [phone] Paula Reza MD Unavailable Porsha Michaels APRN CHUTE TENDER Unavailable Laurel Velasquez MD Unavailable Shahida Sutton PULVERIZER OPERATOR CHUTE TENDER Unavailable Un available Marilin Montaño CHUTE TENDER Unavailable Esha Dewitt MD Unavailable [phone] Heather Mosquera MD Unavailable [phone] Paula Reza MD Unavailable Esha Dewitt MD Unavailable [phone] Valdo Escamilla PA-C Unavailable [phone] Nohelia Abarca PA-C Unavailable [phone] Heather Mosquera MD Unavailable [phone] Fawad York MD Unavailable [phone] Reason for Visit * Reason Onset Date Comments information for employers 03/28/2022 Inform ation needed for reasonable accommodations request Encounter Details Date Type Department Care Team (Late st Contact Info) Description 03/28/2022 Telephone [facility] [address] [facility] [address] [place] [address] Porsha Michaels APRN CHUTE TENDER [address] [facility] [place] [id number] information for employers (Information needed for reasonable accommodations request) Social History Tobacco Use Types Packs/Day Years [...] encounter Miscellaneous Notes * Telephone Encounter - Eulalia Krishna - 03/28/2022 3:42 PM CST [facility] Phone Message May a detailed message be left on voicemail: yes Reason for Call: Other: The patient has made a resonable accomodations request and the pt's companyneeds some follow up information Tabitha said she will fax questions in to [facility] today Action Taken: Other: Cardiology Travel Screening: Not Applicable Thank you! [facility] NOHEMATOLOGIST documented in this encounter Plan of Treatment [...] Optimize Self-Care Behaviors 90%(03/23/19 23 3:12 PM IMMUNOHEMATOLOGIST) Angelita Diaz RD Note: I will check [...] documented as of this encounter Care Teams Towboat Captain Relationship Specialty Start Date End Date Paula Reza MD [address] [address] PCP - General Internal Medicine 08/05/21 Roopa Almonte MD [address] [facility] 200 [place] [address] Endocrinology, Diabetes, and Metabolism 01/19/21 Maryse Burton, PA-C [address] [place] [address] Physician Telegraph Messenger Dermatology 04/14/21 Roopa Almonte MD [address] [facility] 200 [place] [address] Hospitalist Endocrinology, Diabetes, and Metabolism 05/30/21 Griffin Joshi MD [address] [facility] [address] [place] [address] Cardiovascular Disease 07/25/21 Rina Magallon, RN Lead Tool And Die Maker/Designer 07/29/21 07/11/22 Roopa Almonte MD [address] [facility] [address] [place], [place] [address] Assigned Endocrinology Provider 09/10/21 Rosa Maria Love CHW Community Health Worker 10/06/21 07/11/22 [place] [address] [facility] 300 [place] [address] Assigned Musculoskeletal Provider 10/15/21 04/26/23 Porsha Michaels APRN CHUTE TENDER [address] [place] [address] Assigned Heart and Vascular Provider 02/11/22 05/12/22 Paula Reza MD [address] [address] Assigned PCP 03/25/22 04/07/22 Shahida Sutton APRN CHUTE TENDER [address] [address] Assigned PCP 04/08/22 06/30/22 Daylin Ludwig, [facility] [address] [address] Cardiac Rehabilitation Therapist 05/16/23 Laurel Velasquez MD [address] [address] Assigned Heart and Vascular Provider 05/13/22 06/30/22 Daylin Ludwig, [facility] [address] [address] Cardiac Rehabilitation Therapist 06/08/22 06/09/23 Paula Reza MD [address] [place] [address] Assigned PCP 07/01/22 07/07/22 Porsha Michaels APRN CHUTE TENDER [address] [place] [address] Assigned Heart and Vascular Provider 07/01/22 07/07/22 Laurel Velasquez MD [address] [address] Assigned Heart and Vascular Provider 07/08/22 08/04/22 Shahida Sutton APRN CHUTE TENDER Assigned PCP 07/08/22 09/08/22 Marilin Montaño, CHUTE TENDER [address] [address] Assigned Heart and Vascular Provider 08/05/22 Esha Dewitt MD 420 [facility] 36 [place] [address] Gastroenterology 09/06/22 Heather Mosquera MD [address] [place], [place] [address] Internal Medicine 09/06/22 Paula Reza MD [address] [facility] 200 [place], [place] [address] Assigned PCP 09/09/22 01/05/23 Esha Dewitt MD 420 [facility] 36 [place], [place] [address] Assigned Gastroenterology Provider 09/23/22 Valdo Escamilla PA-C [address] [facility] [address] [place], [place] [address] Assigned Neuroscience Provider 09/30/22 Nohelia Abarca PA-C [address] [place], [place] [address] Physician Telegraph Messenger Gastroenterology 10/03/22 Heather Mosquera MD [address] [place], [place] [address] Assigned PCP 01/06/23 Fawad York MD [address] [place], [place] [address] Assigned Musculoskeletal Provider 04/27/23 06/25/23 documented as of this encounter
--- OUTSIDE RECORDS SUMMARY | 2023-09-18 13:48 | XMS_ITS | Encounter Summary ---
Author Organization [facility] Address [address] [place] [address] Care Team Providers Care Metal Numerical Tool Programmer Name Role Phone Roopa Almonte MD Unavailable [phone] Maryse Burton PA-C Unavailable [phone] Roopa Almonte MD Unavailable [phone] Griffin Joshi MD Unavailable Rina Magallon RN Unavailable [phone] Paula Reza MD Primary Care Provider [phone] Roopa Almonte MD Unavailable [phone] Rosa Maria Love Unavailable [phone] Augustine Callaway MD Unavailable Shahida Sutton APRN BODY PIERCER Unavailable Un available Porsha Michaels APRN BODY PIERCER Unavailable [phone] Paula Reza MD Unavailable Shahida Sutton APRN BODY PIERCER Unavailable Un available Daylin Ludwig Unavailable [phone] Luarel Velasquez MD Unavailable [phone] Daylin Ludwig Unavailable [phone] Paula Reza MD Unavailable Porsha Michaels APRN BODY PIERCER Unavailable [phone] Laurel Velasquez MD Unavailable [phone] HermanIndu huertaprincess Cummings OCEAN EXPORT ACCOUNT MANAGER BODY PIERCER Unavailable Un available Marilin Montaño BODY PIERCER Unavailable [phone] Esha Dewitt MD Unavailable [phone] Heather Mosquera MD Unavailable [phone] Paula Reza MD Unavailable Esha Dewitt MD Unavailable [phone] Valdo Escamilla PA-C Unavailable [phone] Nohelia Abarca-C Unavailable [phone] Heather Mosquera MD Unavailable [phone] Fawad York MD Unavailable [phone] Encounter Details Date Type Department Care Team (Late st Contact Info) Description 02/27/2022 MyC Medical Advice [facility] [address] [facility] [address] [place] [address] Carmen Prince, CROSSBOW MAKER Social History Tobacco Use Types Packs/Day Years [...] Coronavirus/COVID-19? No / Unsure 02/21/2022 12:25 PM PUBLIC WORKS COMMISSIONER documented as of this encounter Plan of [...] to Optimize Self-Care Behaviors 90%(03/23/19 3:12 PM PUBLIC WORKS COMMISSIONER) Angelita Diaz RD Note: I will check [...] documented as of this encounter Care Teams Metal Numerical Tool Programmer Relationship Specialty Start Date End Date Paula Reza MD [address] [facility] 200 [place] [address] PCP - General Internal Medicine 08/05/21 Roopa Almonte MD [address] [facility] 200 [place] [address] Endocrinology, Diabetes, and Metabolism 01/19/21 Maryse Burton PA-C [address] [place] [address] Physician Oil Operator Dermatology 04/14/21 Roopa Almonte MD [address] [facility] 200 [place] [address] Hospitalist Endocrinology, Diabetes, and Metabolism 05/30/21 Griffin Joshi MD [address] [facility] [address] [place], [place] [address] Cardiovascular Disease 07/25/21 Rina Magallon, RN Lead Shipyard Supervisor 07/29/21 07/11/22 Roopa Almonte MD [address] 200 [place] [address] Assigned Endocrinology Provider 09/10/21 Rosa Maria Love CHW Community Health Worker 10/06/21 07/11/22 [place] [address] [facility] 300 [place] [address] Assigned Musculoskeletal Provider 10/15/21 04/26/23 Shahida Sutton APRN BODY PIERCER Assigned PCP 12/24/21 03/24/22 Porsha Michaels APRN BODY PIERCER [address] [address] Assigned Heart and Vascular Provider 02/11/22 05/12/22 Paula Reza MD [address] [place] [address] Assigned PCP 03/25/22 04/07/22 Shahida Sutton APRN BODY PIERCER [address] [place] [address] Assigned PCP 04/08/22 06/30/22 Daylin Ludwig EP [facility] [address] [address] Cardiac Rehabilitation Therapist 05/16/23 Laurel Velasquez MD [address] [address] Assigned Heart and Vascular Provider 05/13/22 06/30/22 Daylin Ludwig EP [facility] [address] [place] [address] Cardiac Rehabilitation Therapist 06/08/22 06/09/23 Paula Reza MD [address] [facility] 200 [place], [place] [address] Assigned PCP 07/01/22 07/07/22 Porsha Michaels APRN BODY PIERCER [address] [place] [address] Assigned Heart and Vascular Provider 07/01/22 07/07/22 Laurel Velasquez MD [address] [place] [address] Assigned Heart and Vascular Provider 07/08/22 08/04/22 Shahida Sutton APRN BODY PIERCER Assigned PCP 07/08/22 09/08/22 Marilin Montaño, BODY PIERCER [address] [place] [address] Assigned Heart and Vascular Provider 08/05/22 Esha Dewitt MD [address] [place] [address] 36 [place], [place] [address] Gastroenterology 09/06/22 Heather Mosquera MD [address] [place] [address] Internal Medicine 09/06/22 Paula Reza MD [address] [facility] 200 [place] [address] Assigned PCP 09/09/22 01/05/23 Esha Dewitt MD 420 [facility] 36 [place], [place] [address] Assigned Gastroenterology Provider 09/23/22 Valdo Escamilla PA-C [address] [facility] [address] [place], [place] [address] Assigned Neuroscience Provider 09/30/22 Nohelia Abarca PA-C [address] [facility] [place] [place] [address] Physician Oil Operator Gastroenterology 10/03/22 Heather Mosquera MD [address] [facility] 150 [place], [place] [address] Assigned PCP 01/06/23 Fawad York MD [address] [place], [place] [address] Assigned Musculoskeletal Provider 04/27/23 06/25/23 documented as of this encounter
--- OUTSIDE RECORDS SUMMARY | 2023-09-18 13:48 | XMS_ITS | Encounter Summary ---
Author Organization [facility] Address [address] [place] [address] Care Team Providers Care Speech And Hearing Director Name Role Phone Roopa Almonte MD Unavailable [phone] Maryse Burton PA-C Unavailable [phone] Roopa Almonte MD Unavailable [phone] Griffin Joshi MD Unavailable Rina Magallon RN Unavailable [phone] Paula Reza MD Primary Care Provider [phone] Roopa Almonte MD Unavailable [phone] Rosa Maria Love Unavailable [phone] Augustine Callaway MD Unavailable Keerthi Miner APRN ITALIAN LECTURER Unavailable [phone] Shahida Sutton APRN ITALIAN LECTURER Unavailable Un available Porsha Michaels APRN ITALIAN LECTURER Unavailable [phone] Paula Reza MD Unavailable HermanShahida huerta APRN ITALIAN LECTURER Unavailable Un available Daylin Ludwig Unavailable [phone] Laurel Velasquez MD Unavailable [phone] OzielDaylin Marquita [place] Unavailable [phone] Paula Reza MD Unavailable Porsha Michaels APRN ITALIAN LECTURER Unavailable Laurel Velasquez MD Unavailable Shahida Sutton APRN ITALIAN LECTURER Unavailable Un available Marilin Montaño ITALIAN LECTURER Unavailable [phone] Esha Dewitt MD Unavailable [phone] Heather Mosquera MD Unavailable [phone] Paula Reza MD Unavailable Esha Dewitt MD Unavailable [phone] Valdo Escamilla PA-C Unavailable [phone] Nohelia Abarca PA-C Unavailable [phone] Heather Mosquera MD Unavailable [phone] Fawad York MD Unavailable [phone] Encounter Details Date Type Department Care Team (Late st Contact Info) Description 01/10/2022 [facility] [address] [address] [facility] Social History Tobacco Use Types Packs/Day Years [...] suspected to have Coronavirus/COVID-19? No / Unsure 01/12/2022 10:27 AM ASSOCIATE PROFESSOR OF MEDICINE documented as of this encounter Plan of Treatment Not on file documented as of this encounter Visit Diagnoses Not on filedocumented in this encounter Additional Health Concerns Infection Onset Date Last Indicated Resolved Time ESBL 01/05/2021 01/05/2021 Assessment Noted Time PHQ-9 Depression Total Score: 7 01/04/20 22 4:11 PM CDT documented as of this encounter Care Teams Speech And Hearing Director Relationship Specialty Start Date End Date Paula Reza MD [address] [address] PCP - General Internal Medicine 08/05/21 Roopa Almonte MD [address] [facility] [address] [address] Endocrinology, Diabetes, and Metabolism 01/19/21 Maryse Burton, PAAna MariaC [address] [place] [address] Physician Plate Slitter And Inspector Dermatology 04/14/21 Roopa Almonte MD [address] [address] Hospitalist Endocrinology, Diabetes, and Metabolism 05/30/21 Griffin Joshi MD [address] [place] [address] Cardiovascular Disease 07/25/21 Rina Magallon, RN Lead Program Clinician 07/29/21 07/11/22 Roopa Almonte MD [address] [facility] 200 [place], [place] [address] Assigned Endocrinology Provider 09/10/21 Rosa Maria Love CHW Community Health Worker 10/06/21 07/11/22 [place] [address] [facility] 300 [place] [address] Assigned Musculoskeletal Provider 10/15/21 04/26/23 Keerthi Miner APRN ITALIAN LECTURER [address] [place] [address] Assigned Heart and Vascular Provider 10/08/21 02/10/22 Shahida Sutton, DUANE ITALIAN LECTURER Assigned PCP 12/24/21 03/24/22 Porsha Michaels APRN ITALIAN LECTURER [address] [place] [address] Assigned Heart and Vascular Provider 02/11/22 05/12/22 Paula Reza MD [address] [facility] 200 [place], [place] [address] Assigned PCP 03/25/22 04/07/22 Shahida Sutton APRN ITALIAN LECTURER [address] [place] [address] Assigned PCP 04/08/22 06/30/22 Daylin Ludwig, [facility] [address] [place] [address] Cardiac Rehabilitation Therapist 05/16/23 Luarel Velasquez MD [address] [place] [address] Assigned Heart and Vascular Provider 05/13/22 06/30/22 Daylin Ludwig, [facility] [address] [address] Cardiac Rehabilitation Therapist 06/08/22 06/09/23 Paula Reza MD [address] [place] [address] Assigned PCP 07/01/22 07/07/22 Porsha Michaels APRN ITALIAN LECTURER [address] [address] Assigned Heart and Vascular Provider 07/01/22 07/07/22 Laurel Velasquez MD [address] [address] Assigned Heart and Vascular Provider 07/08/22 08/04/22 Shahida Sutton APRN ITALIAN LECTURER Assigned PCP 07/08/22 09/08/22 Marilin Montaño, ITALIAN LECTURER [address] [place] [address] Assigned Heart and Vascular Provider 08/05/22 Esha Dewitt MD [address] [address] Gastroenterology 09/06/22 Heather Mosquera MD [address] [place], [place] [address] Internal Medicine 09/06/22 Paula Reza MD [address] [facility] 200 [place] [address] Assigned PCP 09/09/22 01/05/23 Esha Dewitt MD [address] [address] Assigned Gastroenterology Provider 09/23/22 Valdo Escamilla PA-C [address] [facility] [address] [place] [address] Assigned Neuroscience Provider 09/30/22 Nohelia Abarca PA-C [address] [place] [address] Physician Plate Slitter And Inspector Gastroenterology 10/03/22 Heather Mosquera MD [address] [place] [address] Assigned PCP 01/06/23 Fawad York MD 909 [place] [address] Assigned Musculoskeletal Provider 04/27/23 06/25/23 documented as of this encounter
--- OUTSIDE RECORDS SUMMARY | 2023-09-18 13:49 | XMS_ITS | Encounter Summary ---
Author Organization [facility] Address [address] [place] [address] Care Team Providers Care Overhead Irrigator Name Role Phone HermanShahida APRN LEARNING COACH Primary Care Provi ford Unavailable Shahida Sutton APRN LEARNING COACH Unavailable Un available Carolynn Ramon RN Unavailable [phone] Anabela Barakat APRN LEARNING COACH Unavailable Roopa Almonte MD Unavailable [phone] Augustine Callaway MD Unavailable Maryse Burton PA-C Unavailable [phone] Roopa Almonte MD Unavailable [phone] Griffin Joshi MD Unavailable Rina Magallon RN Unavailable [phone] Paula Reza MD Primary Care Provider [phone] Griffin Joshi MD Unavailable Roopa Almonte MD Unavailable [phone] Basilio Morillo DO Unavailable [phone] Lydia Bernstein PA-C Unavailable Kate Rosa Maria CHW Unavailable Augustine Callaway MD Unavailable Paula Reza MD Unavailable Keerthi Miner APRN LEARNING COACH Unavailable Herman, Shahida Cummings APRN LEARNING COACH Unavailable Un available Porsha Michaels APRN LEARNING COACH Unavailable [phone] Paula Reza MD Unavailable Herman, Shahida Cummings APRN LEARNING COACH Unavailable Un available Daylin Ludwig EP Unavailable [phone] Laurel Velasquez MD Unavailable FieteDaylin hernandez EP Unavailable [phone] Paula Reza MD Unavailable Porsha Michaels APRN LEARNING COACH Unavailable [phone] Laurel Velasquez MD Unavailable [phone] Herman, Shahida Cummings APRN LEARNING COACH Unavailable Un available Marilin Montaño LEARNING COACH Unavailable Esha Dewitt MD Unavailable [phone] Heather Mosquera MD Unavailable [phone] Paula Reza MD Unavailable Esha Dewitt MD Unavailable [phone] Valdo Escamilla PA-C Unavailable [phone] Nohelia Abarca PA-C Unavailable [phone] Heather Mosquera MD Unavailable [phone] Fawad [place] MD Unavailable [phone] Reason for Visit * Reason Onset Date Comments Anticoagulation 07/15/2021 INR overdue Encounter Details Date Type Department Care Team (Latest Contact Info) Description 07/15/2021 Documentation Only [facility] [address] [place] [phone] Aneta Thurman RN Anticoagulation (INR overdue) Social History Tobacco Use Types Packs/Day Years Used Date Smoking Tobacco: Former Cigarettes Q uit: 12/09/2006 Cigars Smokeless Tobacco: Never Alcohol Use Standard Drinks/Week Comments Not Currently 0 (1 standard drink = 0.6 oz pur e alcohol) Very Occasionally PHQ-2 Answer Date Recorded PHQ-2 Score 6 07/13/2021 Sex and Gender Information Value Date Recorded Sex Assigned at Male 09/20/2020 8:37 AM CDT Gender Identity Male 09/20/2020 8:37 AM CDT Sexual Orientation Straight 09/20/2020 8: 37 AM CDT COVID-19 Exposure Response Date Recorded In the last 10 days, have yo u been in contact with someone who was confirmed or suspected to have Coronavirus/COVID-19? No / Unsure 07/13/2021 2:51 PM CDT documented as of this encounter Plan of Treatment Not on file documented as of this encounter Visit Diagnoses Not on filedocumented in this encounter Additional Health Concerns Infection Onset Date Last Indicated Resolved Time ESBL 01/05/2021 01/05/2021 Rule Out COVID-19 07/25/2021 07/25/2021 07/25/2021 8:02 PM CDT Assessment Noted Time PHQ-9 Depression Total Score: 10 022 7:02 AM CDT documented as of this encounter Care Teams Overhead Irrigator Relationship Specialty Start Date End Date Shahida Sutton APRN LEARNING COACH PCP - General Nurse Practitioner 08/17/14 08/04/21 Paula Reza MD [address] [facility] 200 [place] [address] PCP - General Internal Medicine 08/05/21 Shahida Sutton APRN LEARNING COACH Assigned PCP 07/12/14 09/30/21 Carolynn Ramon RN Personal Advocate & Liaison (PAL) 12/17/18 08/07/21 Anabela Barakat APRN LEARNING COACH [address] [place] [address] Assigned Heart and Vascular Provider 08/15/20 08/05/21 Roopa Almonte MD [address] [facility] 200 [place] [address] Endocrinology, Diabetes, and Metabolism 01/19/21 [place] [address] [facility] [address] [place] [address] Assigned Musculoskeletal Provider 02/06/21 09/16/21 Maryse Burton PA-C [address] [place] [address] Physician Etch Operator Semiconductor Wafers Dermatology 04/14/21 Roopa Almonte MD [address] [facility] 200 [place], [place] [address] Hospitalist Endocrinology, Diabetes, and Metabolism 05/30/21 Griffin Joshi MD [address] [facility] [address] [place] [address] Cardiovascular Disease 07/25/21 Rina Magallon, RN Lead Hairspring Vibrator 07/29/21 07/11/22 Griffin Joshi MD [address] [facility] [address] [place] [address] Assigned Heart and Vascular Provider 08/06/21 10/07/21 Roopa Almonte MD [address] [facility] 200 [place], [place] [address] Assigned Endocrinology Provider 09/10/21 [place] [address] [facility] [place] [address] Assigned Musculoskeletal Provider 09/17/21 10/14/21 Lydia Bernstein PA-C [address] [place] [address] Assigned PCP 10/01/21 10/21/21 Rosa Maria Love CHW Community Health Worker 10/06/21 07/11/22 [place] [address] [address] [address] [place] [address] Assigned Musculoskeletal Provider 10/15/21 04/26/23 Paula Reza MD [address] [facility] 200 [place], [place] [address] Assigned PCP 10/22/21 12/23/21 Keerthi Miner APRN LEARNING COACH [address] [place] [address] Assigned Heart and Vascular Provider 10/08/21 02/10/22 Shahida Sutton APRN LEARNING COACH Assigned PCP 12/24/21 03/24/22 Porsha Michaels APRN LEARNING COACH [address] [place] [address] Assigned Heart and Vascular Provider 02/11/22 05/12/22 Paula Reza MD [address] [place] [address] Assigned PCP 03/25/22 04/07/22 Shahida Sutton APRN LEARNING COACH [address] [place] [address] Assigned PCP 04/08/22 06/30/22 Daylin Ludwig, [facility] [address] [place] [address] Cardiac Rehabilitation Therapist 05/16/23 Laurel Velasquez MD [address] [place] [address] Assigned Heart and Vascular Provider 05/13/22 06/30/22 Daylin Ludwig, [facility] [address] [place] [address] Cardiac Rehabilitation Therapist 06/08/22 06/09/23 Paula Reza MD [address] [place] [address] Assigned PCP 07/01/22 07/07/22 Porsha Michaels APRN LEARNING COACH [address] [place] [address] Assigned Heart and Vascular Provider 07/01/22 07/07/22 Laurel Velasquez MD [address] [place] [address] Assigned Heart and Vascular Provider 07/08/22 08/04/22 Shahida Sutton APRN LEARNING COACH Assigned PCP 07/08/22 09/08/22 Marilin Montaño, PAULA [address] [place] [address] Assigned Heart and Vascular Provider 08/05/22 Esha Dewitt MD [address] [facility] 36 [place] [address] MD Gastroenterology 09/06/22 Heather Mosquera MD [address] [facility] [address] [place], [place] [address] Internal Medicine 09/06/22 Paula Reza MD [address] [facility] 200 [place] [address] Assigned PCP 09/09/22 01/05/23 Esha Dewitt MD [address] [facility] 36 [place] [address] Assigned Gastroenterology Provider 09/23/22 Valdo Escamilla PA-C [address] [facility] [address] [place] [address] Assigned Neuroscience Provider 09/30/22 Nohelia Abarca PA-C [address] [place], [place] [address] Physician Etch Operator [employer]iconductor Wafers Gastroenterology 10/03/22 Heather Mosquera MD [address] [place], [place] [address] Assigned PCP 01/06/23 Fawad York MD 9 [place] [address] Assigned Musculoskeletal Provider 04/27/23 06/25/23 documented as of this encounter
--- OUTSIDE RECORDS SUMMARY | 2023-09-18 13:49 | XMS_ITS | Encounter Summary ---
Author Organization [facility] Address [address] [place] [address] Care Team Providers Care Charge Auditor Name Role Phone HermanShahida APRN PLASTERER APPRENTICE Primary Care Provi ford Unavailable Shahida Sutton APRN PLASTERER APPRENTICE Unavailable Un available Carolynn Ramon RN Unavailable [phone] Anabela Barakat APRN PLASTERER APPRENTICE Unavailable Roopa Almonte MD Unavailable [phone] Augustine Callaway MD Unavailable Maryse Burton PA-C Unavailable [phone] Marquita Starkey MD Unavailable [phone] Roopa Almonte MD Unavailable [phone] Griffin Joshi MD Unavailable Rina Magallon RN Unavailable [phone] Paula Reza MD Primary Care Provider [phone] Griffin Joshi MD Unavailable Roopa Almonte MD Unavailable [phone] Basilio Morillo DO Unavailable [phone] Lydia BernsteinC Unavailable Rosa Maria Love Unavailable Augustine Callaway MD Unavailable Paula Reza MD Unavailable Keerthi Miner APRN PLASTERER APPRENTICE Unavailable Herman, Shahida Cummings APRN PLASTERER APPRENTICE Unavailable Un available Porsha Michaels APRN PLASTERER APPRENTICE Unavailable [phone] Paula Reza MD Unavailable Herman, Shahida Cummings APRN PLASTERER APPRENTICE Unavailable Un available Daylin Ludwig Unavailable [phone] Laurel Velasquez MD Unavailable Daylin Ludwig Unavailable [phone] Paula Reza MD Unavailable Porsha Michaels APRN PLASTERER APPRENTICE Unavailable [phone] Laurel Velasquez MD Unavailable Herman, Shahida Cummings APRN PLASTERER APPRENTICE Unavailable Un available Marilin Montaño PLASTERER APPRENTICE Unavailable Esah Dewitt MD Unavailable [phone] Heather Mosquera MD Unavailable [phone] Paula Reza MD Unavailable Esha Dewitt MD Unavailable [phone] Valdo Escamilla PA-C Unavailable [phone] Nohelia Abarca-C Unavailable [phone] Heather Mosquera MD Unavailable Fawad York MD Unavailable [phone] Reason for Visit * Reason Comments Medication Refill Encounter Details Date Type Department Care Team (Late st Contact Info) Description 02/21/[address] [place] [phone] Shahida Sutton APRN PLASTERER APPRENTICE Medication Refill Social History Tobacco Use Types Packs/Day Years Used Date Smoking Tobacco: Former Cigarettes Q uit: 12/09/2006 Cigars Smokeless Tobacco: Never Alcohol Use Standard Drinks/Week Comments Yes 0 (1 standard drink = 0.6 oz pur e alcohol) Very Occasionally PHQ-2 Answer Date Recorded PHQ-2 Score 2 11/03/2020 Sex and Gender Information Value Date Recorded Sex Assigned at Male 09/20/2020 8:37 AM CDT Gender Identity Male 09/20/2020 8:37 AM CDT Sexual Orientation Straight 09/20/2020 8: 37 AM CDT COVID-19 Exposure Response Date Recorded In the last month, have you been in contact with someone who was confirmed or suspected to have Coronavirus / COVID-19? No / Unsure 02/07/2021 7:55 AM INFECTION PREVENTION COORDINATOR documented as of this encounter Miscellaneous Notes * Telephone Encounter - Marilin Cuevas RN - 02/21/2021 2:10 PM INFECTION PREVENTION COORDINATOR Routing refill request to provider for review/approval because: Drug [facility] Marilin Cuevas RN [facility] -- Triage Nurse CTION PREVENTION COORDINATOR documented in this encounter Plan of Treatment Not on file documented as of this encounter Visit Diagnoses Diagnosis Insomnia, unspecified type documented in this encounter Additional Health Concerns Infection Onset Date Last Indicated Resolved Time ESBL 01/05/2021 01/05/2021 Rule Out COVID-19 06/30/2021 06/30/2021 07/01/2021 9:34 AM CDT Rule Out COVID-19 07/25/2021 07/25/2021 07/25/2021 8:02 PM CDT Assessment Noted Time PHQ-9 Depression Total Score: 7 11/05/19 21 7:03 AM CDT documented as of this encounter Care Teams Charge Auditor Relationship Specialty Start Date End Date Shahida Sutton APRN PLASTERER APPRENTICE PCP - General Nurse Practitioner 08/17/14 08/04/21 Paula Reza MD [address] [facility] 200 [place] [address] PCP - General Internal Medicine 08/05/21 Shahida Sutton, CLOTH SHRINKING SUPERVISOR PLASTERER APPRENTICE Assigned PCP 07/12/14 09/30/21 Carolynn Ramon RN Personal Advocate & Liaison (PAL) 12/17/18 08/07/21 Anabela Barakat APRN PLASTERER APPRENTICE 1700 [place] [address] Assigned Heart and Vascular Provider 08/15/20 08/05/21 Roopa Almonte MD [address] [address] Endocrinology, Diabetes, and Metabolism 01/19/21 [place] [address] [address] Assigned Musculoskeletal Provider 02/06/21 09/16/21 Maryse Burton, PA-C [address] [place] [address] Physician Developmental Electronics Assembler Dermatology 04/14/21 Marquita Starkey MD [address] [address] Internal Medicine 05/06/21 05/06/21 Roopa Almonte MD [address] [address] Hospitalist Endocrinology, Diabetes, and Metabolism 05/30/21 Griffin Joshi MD [address] [facility] [address] [place] [address] Cardiovascular Disease 07/25/21 Rina Magallon, RN Lead Bank Courier 07/29/21 07/11/22 Griffin Joshi MD [address] [place] [address] Assigned Heart and Vascular Provider 08/06/21 10/07/21 Roopa Almonte MD [address] [place] [address] 200 [place] [address] Assigned Endocrinology Provider 09/10/21 [place] [address] [facility] [place] [address] Assigned Musculoskeletal Provider 09/17/21 10/14/21 Lydia Bernstein PA-C [address] [facility] 150 [place] [address] Assigned PCP 10/01/21 10/21/21 Rosa Maria Love CHW Community Health Worker 10/06/21 07/11/22 [place] [address] [address] [facility] [address] [place] [address] Assigned Musculoskeletal Provider 10/15/21 04/26/23 Paula Reza MD [address] [place] [address] Assigned PCP 10/22/21 12/23/21 Keerthi Miner APRN PLASTERER APPRENTICE [address] [place] [address] Assigned Heart and Vascular Provider 10/08/21 02/10/22 Shahida Sutton APRN PLASTERER APPRENTICE Assigned PCP 12/24/21 03/24/22 Porsha Michaels APRN PLASTERER APPRENTICE [address] [place] [address] Assigned Heart and Vascular Provider 02/11/22 05/12/22 Paula Reza MD [address] [place] [address] Assigned PCP 03/25/22 04/07/22 Shahida Sutton APRN PLASTERER APPRENTICE [address] [place] [address] Assigned PCP 04/08/22 06/30/22 Daylin Ludwig, EP [facility] [address] [place] [address] Cardiac Rehabilitation Therapist 05/16/23 Laurel Velasquez MD [address] [place] [address] Assigned Heart and Vascular Provider 05/13/22 06/30/22 Daylin Ludwig, EP [facility] [address] [place] [address] Cardiac Rehabilitation Therapist 06/08/22 06/09/23 Paula Reza MD [address] [place], [place] [address] Assigned PCP 07/01/22 07/07/22 Porsha Michaels APRN PLASTERER APPRENTICE [address] [place] [address] Assigned Heart and Vascular Provider 07/01/22 07/07/22 Laurel Velasquez MD [address] [place] [address] Assigned Heart and Vascular Provider 07/08/22 08/04/22 Shahida Sutton APRN PLASTERER APPRENTICE Assigned PCP 07/08/22 09/08/22 Marilin Montaño, PLASTERER APPRENTICE [address] [place] [address] Assigned Heart and Vascular Provider 08/05/22 Esha Dewitt MD [address] [place] [address] 36 [place], [place] [address] Gastroenterology 09/06/22 Heather Mosquera MD [address] [place] [address] Internal Medicine 09/06/22 Paula Reza MD [address] [place] [address] Assigned PCP 09/09/22 01/05/23 Esha Dewitt MD 420 [facility] 36 [place] [address] Assigned Gastroenterology Provider 09/23/22 Valdo Escamilla PA-C [address] [facility] [address] [place] [address] Assigned Neuroscience Provider 09/30/22 Nohelia Abarca PA-C [address] [place] [address] Physician Developmental Electronics Assembler Gastroenterology 10/03/22 Heather Mosquera MD [address] [place] [address] Assigned PCP 01/06/23 Fawad [place] MD 909 [place] [address] Assigned Musculoskeletal Provider 04/27/23 06/25/23 documented as of this encounter
--- OUTSIDE RECORDS SUMMARY | 2023-09-18 13:49 | XMS_ITS | Encounter Summary ---
Author Organization [facility] Address [address] [place] [address] Care Team Providers Care Pocket Marker Name Role Phone HermanShahida APRN DISABILITY CASE MANAGER Primary Care Provi ford Unavailable Shahida Sutton APRN DISABILITY CASE MANAGER Unavailable Un available Carolynn Ramon RN Unavailable [phone] Anabela Barakat APRN DISABILITY CASE MANAGER Unavailable Fawad York MD Unavailable [phone] Roopa Almonte MD Unavailable [phone] Augustine Callaway MD Unavailable Maryse Burton PA-C Unavailable [phone] Marquita Starkey MD Unavailable [phone] Roopa Almonte MD Unavailable [phone] Griffin Joshi MD Unavailable Rina Magallon RN Unavailable [phone] Paula Reza MD Primary Care Provider [phone] Griffin Joshi MD Unavailable Roopa Almonte MD Unavailable [phone] Basilio Morillo DO Unavailable Lydia Bernstein PA-C Unavailable Rosa Maria Love Unavailable Augustine Callaway MD Unavailable Paula Reza MD Unavailable Keerthi Miner APRN DISABILITY CASE MANAGER Unavailable [phone] Herman, Shahida Cummings PICK REMOVER DISABILITY CASE MANAGER Unavailable Un available Porsha Michaels APRN DISABILITY CASE MANAGER Unavailable Paula Reza MD Unavailable Herman, Shahida Cummings APRN DISABILITY CASE MANAGER Unavailable Un available Daylin Ludwig Unavailable Laurel Velasquez MD Unavailable Daylin Ludwig Unavailable Paula Reza MD Unavailable Porsha Michaels APRN DISABILITY CASE MANAGER Unavailable Laurel Velasquez MD Unavailable Herman, Shahida Cummings APRN DISABILITY CASE MANAGER Unavailable Un available Marilin Montaño DISABILITY CASE MANAGER Unavailable Esha Dewitt MD Unavailable [phone] Heather Mosquera MD Unavailable Paula Reza MD Unavailable Esha Dewitt MD Unavailable [phone] Valdo Escamilla PA-C Unavailable Nohelia Abarca PA-C Unavailable [phone] Heather Mosquera MD Unavailable Fawad York MD Unavailable Encounter Details Date Type Department Care Team (Late st Contact Info) Description 12/21/2020 MyC Medical Advice [address] [address] Monica Suarez Social History Tobacco Use Types Packs/Day Years [...] have Coronavirus / COVID-19? No / Unsure 12/13/2020 2:40 PM CDT documented as of this encounter Plan of Treatment Not on file documented as of this encounter Visit Diagnoses Not on filedocumented in this encounter Additional Health Concerns Infection Onset Date Last Indicated Resolved Time Rule Out COVID-19 01/05/2021 01/05/2021 01/06/2021 12:57 PM CDT ESBL 01/05/2021 01/05/2021 Rule Out COVID-19 06/30/2021 06/30/2021 07/01/2021 9:34 AM CDT Rule Out COVID-19 07/25/2021 07/25/2021 07/25/2021 8:02 PM CDT Assessment Noted Time PHQ-9 Depression Total Score: 7 11/05/19 21 7:03 AM CDT documented as of this encounter Care Teams Pocket Marker Relationship Specialty Start Date End Date Shahida Sutton APRN DISABILITY CASE MANAGER PCP - General Nurse Practitioner 08/17/14 08/04/21 Paula Reza MD [address] [facility] 200 [place] [address] PCP - General Internal Medicine 08/05/21 Shahida Sutton APRN DISABILITY CASE MANAGER Assigned PCP 07/12/14 09/30/21 Carolynn Ramon, KASIE Personal Advocate & Liaison (PAL) 12/17/18 08/07/21 Anabela Barakat APRN DISABILITY CASE MANAGER 1700 [place] [address] Assigned Heart and Vascular Provider 08/15/20 08/05/21 Fawad York MD [address] [place], [place] [address] Assigned Musculoskeletal Provider 12/05/20 02/05/21 Roopa Almonte MD [address] [place] [address] Endocrinology, Diabetes, and Metabolism 01/19/21 [place] [address] [facility] 300 [place] [address] Assigned Musculoskeletal Provider 02/06/21 09/16/21 Maryse Burton, PAAna MariaC 5200 [place] [address] Physician Magnetic Resonance Imaging Coordinator Dermatology 04/14/21 Marquita Starkey MD [address] [place] [address] Internal Medicine 05/06/21 05/06/21 Roopa Almonte MD [address] [place] [address] Hospitalist Endocrinology, Diabetes, and Metabolism 05/30/21 Griffin Joshi MD [address] [facility] [address] [place] [address] Cardiovascular Disease 07/25/21 Rina Magallon, RN Lead Coordinator Of Genetic Services 07/29/21 07/11/22 Griffin Joshi MD [address] [place] [address] Assigned Heart and Vascular Provider 08/06/21 10/07/21 Roopa Almonte MD [address] [place] [address] 200 [place], [place] [address] Assigned Endocrinology Provider 09/10/21 [place] [address] [facility] [place] [address] Assigned Musculoskeletal Provider 09/17/21 10/14/21 Lydia Bernstein PA-C [address] [facility] 150 [place] [address] Assigned PCP 10/01/21 10/21/21 Rosa Maria Love CHW Community Health Worker 10/06/21 07/11/22 [place] [address] [facility] 300 [place] [address] Assigned Musculoskeletal Provider 10/15/21 04/26/23 Paula Reza MD [address] [facility] 200 [place], [place] [address] Assigned PCP 10/22/21 12/23/21 Keerthi Miner APRN DISABILITY CASE MANAGER [address] [place] [address] Assigned Heart and Vascular Provider 10/08/21 02/10/22 Shahida Sutton APRN DISABILITY CASE MANAGER Assigned PCP 12/24/21 03/24/22 Porsha Michaels APRN DISABILITY CASE MANAGER [address] [place] [address] Assigned Heart and Vascular Provider 02/11/22 05/12/22 Paula Reza MD [address] [facility] 200 [place] [address] Assigned PCP 03/25/22 04/07/22 Shahida Sutton PICK REMOVER DISABILITY CASE MANAGER [address] [place] [address] Assigned PCP 04/08/22 06/30/22 Daylin Ludwig, [facility] [address] [place] [address] Cardiac Rehabilitation Therapist 05/16/23 Laurel Velasquez MD [address] [place] [address] Assigned Heart and Vascular Provider 05/13/22 06/30/22 Daylin Ludwig, [facility] [address] [place] [address] Cardiac Rehabilitation Therapist 06/08/22 06/09/23 Paula Reza MD [address] [place] [address] Assigned PCP 07/01/22 07/07/22 Porsha Michaels APRN DISABILITY CASE MANAGER [address] [place] [address] Assigned Heart and Vascular Provider 07/01/22 07/07/22 Laurel Velasquez MD [address] [place] [address] Assigned Heart and Vascular Provider 07/08/22 08/04/22 Shahida Sutton APRN DISABILITY CASE MANAGER Assigned PCP 07/08/22 09/08/22 Marilin Montaño, DISABILITY CASE MANAGER [address] [place] [address] Assigned Heart and Vascular Provider 08/05/22 Esha Dewitt MD [address] [place] [address] Gastroenterology 09/06/22 Heather Mosquera MD [address] [place] [address] Internal Medicine 09/06/22 aPula Reza MD [address] [place] [address] Assigned PCP 09/09/22 01/05/23 Esha Dewitt MD [address] [place] [address] Assigned Gastroenterology Provider 09/23/22 Valdo Escamilla PA-C 6363 [facility] 103 [place] [address] Assigned Neuroscience Provider 09/30/22 Noehlia Abarca PA-C [address]50 [place] [address] Physician Magnetic Resonance Imaging Coordinator Gastroenterology 10/03/22 Heather Mosquera MD 6545 [facility] 150 [place] [address] Assigned PCP 01/06/23 Fawad York MD 909 [place] [address] Assigned Musculoskeletal Provider 04/27/23 06/25/23 documented as of this encounter
--- OUTSIDE RECORDS SUMMARY | 2023-09-18 13:49 | XMS_ITS | Encounter Summary ---
Author Organization [facility] Address [address] [place] [address] Care Team Providers Care Wood Planer Name Role Phone HermanShahida APRN PRINCIPAL PLANNER Primary Care Provi ford Unavailable Shahida Sutton APRN PRINCIPAL PLANNER Unavailable Un available Carolynn Ramon RN Unavailable [phone] Anabela Barakat APRN PRINCIPAL PLANNER Unavailable Fawad York MD Unavailable [phone] Roopa Almonte MD Unavailable [phone] Augustine Callaway MD Unavailable Maryse Burton PA-C Unavailable [phone] Marquita Starkey MD Unavailable [phone] Roopa Almonte MD Unavailable [phone] Griffin Joshi MD Unavailable Rina Magallon RN Unavailable [phone] Paula Reza MD Primary Care Provider [phone] Griffin Joshi MD Unavailable Roopa Almonte MD Unavailable [phone] Basilio Morillo DO Unavailable [phone] Ldyia Bernstein PA-C Unavailable Rosa Maria Love Unavailable Augustine Callaway MD Unavailable Paula Reza MD Unavailable Keerthi Miner APRN PRINCIPAL PLANNER Unavailable [phone] Herman, Shahida Cummings DIVING COACH PRINCIPAL PLANNER Unavailable Un available Porsha Michaels APRN PRINCIPAL PLANNER Unavailable Paula Reza MD Unavailable Herman, Shahida Cummings APRN PRINCIPAL PLANNER Unavailable Un available Daylin Ludwig Unavailable Laurel Velasquez MD Unavailable Daylin Ludwig Unavailable Paula Reza MD Unavailable Porsha Michaels APRN PRINCIPAL PLANNER Unavailable Laurel Velasquez MD Unavailable Herman, Shahida Cummings APRN PRINCIPAL PLANNER Unavailable Un available Marilin Montaño PRINCIPAL PLANNER Unavailable Esha Dewitt MD Unavailable [phone] Heather Mosquera MD Unavailable Paula Reza MD Unavailable Esha Dewitt MD Unavailable [phone] Valdo Escamilla PA-C Unavailable Nohelia Abarca PA-C Unavailable Heather Mosquera MD Unavailable Fawad York MD Unavailable [phone] Encounter Details Date Type Department Care Team (Late st Contact Info) Description 01/04/2021 MyC Medical Advice [address] [phone] Shahida Sutton APRN CNP Social History Tobacco Use Types Packs/Day Years [...] have Coronavirus / COVID-19? No / Unsure 01/05/2021 1:53 PM CDT documented as of this encounter [...] documented as of this encounter Care Teams Wood Planer Relationship Specialty Start Date End Date Shahida Sutton APRN CNP PCP - General Nurse Practitioner 08/17/14 08/04/21 Paula Reza MD [address] [facility] 200 [place] [address] PCP - General Internal Medicine 08/05/21 Shahida Sutton APRN PRINCIPAL PLANNER Assigned PCP 07/12/14 09/30/21 Carolynn Ramon, KASIE Personal Advocate & Liaison (PAL) 12/17/18 08/07/21 Anabela Barakat, DIVING COACH PRINCIPAL PLANNER [address] [place] [address] Assigned Heart and Vascular Provider 08/15/20 08/05/21 Fawad York MD [address] [place], [place] [address] Assigned Musculoskeletal Provider 12/05/20 02/05/21 Roopa Almonte MD [address] [facility] 200 [place] [address] Endocrinology, Diabetes, and Metabolism 01/19/21 [place] [address] [facility] 300 [place] [address] Assigned Musculoskeletal Provider 02/06/21 09/16/21 Maryse Burton, PAAna MariaC [address] [place] [address] Physician Gas Engine Repairer Dermatology 04/14/21 Marquita Starkey MD [address] [place] [address] Internal Medicine 05/06/21 05/06/21 Roopa Almonte MD [address] [place] [address] Hospitalist Endocrinology, Diabetes, and Metabolism 05/30/21 Griffin Joshi MD [address] [facility] [address] [place] [address] Cardiovascular Disease 07/25/21 Rina Magallon, RN Lead Cooler Deliverer 07/29/21 07/11/22 Griffin Joshi MD [address] [facility] [address] [place] [address] Assigned Heart and Vascular Provider 08/06/21 10/07/21 Roopa Almonte MD [address] [place] [address] 200 [place], [place] [address] Assigned Endocrinology Provider 09/10/21 [place] [address] [facility] [place] [address] Assigned Musculoskeletal Provider 09/17/21 10/14/21 Lydia Bernstein PA-C [address] [facility] 150 [place] [address] Assigned PCP 10/01/21 10/21/21 Rosa Maria Love CHW Community Health Worker 10/06/21 07/11/22 [place] [address] [facility] 300 [place] [address] Assigned Musculoskeletal Provider 10/15/21 04/26/23 Paula Reza MD [address] [facility] 200 [place], [place] [address] Assigned PCP 10/22/21 12/23/21 Keerthi Miner DIVING COACH PRINCIPAL PLANNER [address] [place] [address] Assigned Heart and Vascular Provider 10/08/21 02/10/22 Shahida Sutton, DIVING COACH PRINCIPAL PLANNER Assigned PCP 12/24/21 03/24/22 Porsha Michaels DIVING COACH PRINCIPAL PLANNER [address] [place] [address] Assigned Heart and Vascular Provider 02/11/22 05/12/22 Paula Reza MD [address] [facility] 200 [place] [address] Assigned PCP 03/25/22 04/07/22 Shahida Sutton DIVING COACH PRINCIPAL PLANNER [address] [place] [address] Assigned PCP 04/08/22 06/30/22 Daylin Ludwig, [facility] [address] [place] [address] Cardiac Rehabilitation Therapist 05/16/23 Laurel Velasquez MD [address] [place] [address] Assigned Heart and Vascular Provider 05/13/22 06/30/22 Daylin Ludwig, [facility] [address] [place] [address] Cardiac Rehabilitation Therapist 06/08/22 06/09/23 Paula Reza MD [address] [place] [address] Assigned PCP 07/01/22 07/07/22 Porsha Michaels APRN PRINCIPAL PLANNER [address] [place] [address] Assigned Heart and Vascular Provider 07/01/22 07/07/22 Laurel Velasquez MD [address] [place] [address] Assigned Heart and Vascular Provider 07/08/22 08/04/22 Shahida Sutton APRN PRINCIPAL PLANNER Assigned PCP 07/08/22 09/08/22 Marilin Montaño PRINCIPAL PLANNER [address] [place] [address] Assigned Heart and Vascular Provider 08/05/22 Esha Dewitt MD 420 [facility] 36 [place] [address] Gastroenterology 09/06/22 Heather Mosquera MD [address] [place] [address] Internal Medicine 09/06/22 Paula Reza MD [address] [place] [address] Assigned PCP 09/09/22 01/05/23 Esha Dewitt MD 420 [facility] 36 [place] [address] Assigned Gastroenterology Provider 09/23/22 Valdo Escamilla PA-C 6[address] [facility] 103 [place] [address] Assigned Neuroscience Provider 09/30/22 Nohelia Abarca PA-C [address] [place] [address] Physician Gas Engine Repairer Gastroenterology 10/03/22 Heather Mosquera MD 6545 [facility] 150 [place] [address] Assigned PCP 01/06/23 Fawad York MD [address] [place] [address] Assigned Musculoskeletal Provider 04/27/23 06/25/23 documented as of this encounter
--- OUTSIDE RECORDS SUMMARY | 2023-09-18 13:49 | XMS_ITS | Encounter Summary ---
Author Organization [facility] Address [address] [place] [address] Care Team Providers Care Veneer Lathe Operator Name Role Phone HermanShahida APRN TURN OUT Primary Care Provi ford Unavailable Shahida Sutton APRN TURN OUT Unavailable Un available Carolynn Ramon RN Unavailable [phone] Anabela Barakat APRN TURN OUT Unavailable Roopa Almonte MD Unavailable [phone] Augustine Callaway MD Unavailable Maryse Burton PA-C Unavailable [phone] Roopa Almonte MD Unavailable [phone] Griffin Joshi MD Unavailable Rina Magallon RN Unavailable [phone] Paula Reza MD Primary Care Provider [phone] Griffin Joshi MD Unavailable Roopa Almonte MD Unavailable [phone] Basilio Morillo DO Unavailable [phone] Lydia Bernstein PA-C Unavailable Kate Rosa Maria CHW Unavailable Augustine Callaway MD Unavailable Paula Reza MD Unavailable Keerthi Miner APRN TURN OUT Unavailable Herman, Shahida Cummings APRN TURN OUT Unavailable Un available Porsha Michaels APRN TURN OUT Unavailable [phone] Paula Reza MD Unavailable Herman, Shahida Cummings APRN TURN OUT Unavailable Un available Daylin Ludwig EP Unavailable [phone] Laurel Velasquez MD Unavailable [phone] Fietedavid, Daylin Juárez EP Unavailable [phone] Paula Reza MD Unavailable Porsha Michaels APRN TURN OUT Unavailable [phone] Laurel Velasquez MD Unavailable [phone] Herman, Shahida Cummings APRN TURN OUT Unavailable Un available Marilin Montaño TURN OUT Unavailable [phone] Esha Dewitt MD Unavailable [phone] Heather Mosquera MD Unavailable [phone] Paula Reza MD Unavailable Esha Dewitt MD Unavailable [phone] Valdo Escamilla PA-C Unavailable [phone] Noheila Abarca PA-C Unavailable [phone] Heather Mosquera MD Unavailable [phone] Fawad York MD Unavailable [phone] Reason for Visit * Reason Onset Date Comments Patient Request 07/01/2021 Work letter - RN ULISES Encounter Details Date Type Department Care Team (Late st Contact Info) Description 07/01/2021 [facility] [place] [phone] Shahida Sutton APRN TURN OUT Patient Request (Work letter - RN ULISES ) Social History Tobacco Use Types Packs/Day Years [...] suspected to have Coronavirus/COVID-19? No / Unsure 06/30/2021 10:57 AM CDT documented as of this encounter Miscellaneous Notes * Telephone Encounter - Carolynn Ramon RN - 07/01/2021 3:15 PM CDT Deidre Ferrell, JEANNA Please see my chart message - patient is asking for a letter for his employer explaining why he sawanother provider and with is return to work date (RN left this part blank on letter as not sure what was discussed) visit with new pcp is not until 08/05/2021 Carolynn Ramon, Registered Nurse, ULISES (Patient Advocate Liason) [facility] [phone] * Telephone Encounter - Marquita Singh CMA - 07/01/2021 12:43 PM CDT documented in this encounter Plan of Treatment [...] documented as of this encounter Care Teams Veneer Lathe Operator Relationship Specialty Start Date End Date Shahida Sutton APRN TURN OUT PCP - General Nurse Practitioner 08/17/14 08/04/21 Paula Reza MD [address] [place], [place] [address] PCP - General Internal Medicine 08/05/21 Shahida Sutton APRN TURN OUT Assigned PCP 07/12/14 09/30/21 Carolynn Ramon RN Personal Advocate & Liaison (PAL) 12/17/18 08/07/21 Anabela Barakat APRN TURN OUT 17[address] [place] [address] Assigned Heart and Vascular Provider 08/15/20 08/05/21 Roopa Almonte MD [address] [facility] 200 [place] [address] Endocrinology, Diabetes, and Metabolism 01/19/21 [place] [address] [address] [place] [address] Assigned Musculoskeletal Provider 02/06/21 09/16/21 Maryse Burton, PAAna MariaC [address] [place] [address] Physician Brine Process Operator Dermatology 04/14/21 Roopa Almonte MD [address] [facility] [address] [place] [address] Hospitalist Endocrinology, Diabetes, and Metabolism 05/30/21 Griffin Joshi MD [address] [place] [address] Cardiovascular Disease 07/25/21 Rina Magallon, RN Lead Delivery Route Driver 07/29/21 07/11/22 Griffin Joshi MD [address] [place] [address] Assigned Heart and Vascular Provider 08/06/21 10/07/21 Roopa Almonte MD [address] [facility] 200 [place], [place] [address] Assigned Endocrinology Provider 09/10/21 [place] [address] [facility] [place] [address] Assigned Musculoskeletal Provider 09/17/21 10/14/21 Lydia Bernstein PA-C [address] [place], [place] [address] Assigned PCP 10/01/21 10/21/21 Rosa Maria Love CHW Community Health Worker 10/06/21 07/11/22 [place] [address] [facility] 300 [place] [address] Assigned Musculoskeletal Provider 10/15/21 04/26/23 Paula Reza MD [address] [place] [address] Assigned PCP 10/22/21 12/23/21 Keerthi Miner APRN TURN OUT [address] [place] [address] Assigned Heart and Vascular Provider 10/08/21 02/10/22 Shahida Sutton APRN TURN OUT Assigned PCP 12/24/21 03/24/22 Porsha Michaels APRN TURN OUT [address] [place] [address] Assigned Heart and Vascular Provider 02/11/22 05/12/22 Paula Reza MD [address] [place] [address] Assigned PCP 03/25/22 04/07/22 Shahida Sutton APRN TURN OUT [address] [place] [address] Assigned PCP 04/08/22 06/30/22 Daylin Ludwig EP [facility] [address] [place] [address] Cardiac Rehabilitation Therapist 05/16/23 Laurel Velasquez MD [address] [place] [address] Assigned Heart and Vascular Provider 05/13/22 06/30/22 Daylin Ludwig EP [facility] [address] [place] [address] Cardiac Rehabilitation Therapist 06/08/22 06/09/23 Paula Reza MD [address] [facility] 200 [place], [place] [address] Assigned PCP 07/01/22 07/07/22 Porsha Michaels APRN TURN OUT [address] [place] [address] Assigned Heart and Vascular Provider 07/01/22 07/07/22 Laurel Velasquez MD [address] [place] [address] Assigned Heart and Vascular Provider 07/08/22 08/04/22 Shahida Sutton APRN TURN OUT Assigned PCP 07/08/22 09/08/22 Marilin Montaño, TURN OUT [address] [place] [address] Assigned Heart and Vascular Provider 08/05/22 Esha Dewitt MD [address] [place] [address] 36 [place], [place] [address] Gastroenterology 09/06/22 Heather Mosquera MD [address] [place] [address] Internal Medicine 09/06/22 Paula Reza MD [address] [place] [address] Assigned PCP 09/09/22 01/05/23 Esha Dewitt MD 420 [facility] 36 [place] [address] Assigned Gastroenterology Provider 09/23/22 Valdo Escamilla PA-C [facility] [facility] [address] [place], [place] [address] Assigned Neuroscience Provider 09/30/22 Nohelia Abarca PA-C [address]50 [facility] [place] [address] Physician Brine Process Operator Gastroenterology 10/03/22 Heather Mosquera MD [address] [facility] [address] [facility] 150 [place] [address] Assigned PCP 01/06/23 Fawad York MD 9[address] [place] [address] Assigned Musculoskeletal Provider 04/27/23 06/25/23 documented as of this encounter
--- OUTSIDE RECORDS SUMMARY | 2023-09-18 13:49 | XMS_ITS | Encounter Summary ---
Author Organization [facility] Address [address] [place] [address] Care Team Providers Care Escrow Closer Name Role Phone HermanShahida APRN ELEMENTARY SCHOOL PRINCIPAL Primary Care Provi ford Unavailable Shahida Sutton APRN ELEMENTARY SCHOOL PRINCIPAL Unavailable Un available Carolynn Ramon RN Unavailable [phone] Anabela Barakat APRN ELEMENTARY SCHOOL PRINCIPAL Unavailable Fawad York MD Unavailable [phone] Roopa Almonte MD Unavailable [phone] Augustine Callaway MD Unavailable Maryse Burton PA-C Unavailable [phone] Marquita Starkey MD Unavailable [phone] Roopa Almonte MD Unavailable [phone] Griffin Joshi MD Unavailable Rina Magallon RN Unavailable [phone] Paula Reza MD Primary Care Provider [phone] Griffin Joshi MD Unavailable Roopa Almonte MD Unavailable [phone] Basilio Morillo DO Unavailable Lydia Bernstein PA-C Unavailable Rosa Maria Love Unavailable Augustine Callaway MD Unavailable Paula Reza MD Unavailable Keerthi Miner APRN ELEMENTARY SCHOOL PRINCIPAL Unavailable [phone] Ehrman, Shahida Cummings APRN ELEMENTARY SCHOOL PRINCIPAL Unavailable Un available Porsha Michaels APRN ELEMENTARY SCHOOL PRINCIPAL Unavailable Paula Reza MD Unavailable Herman, Shahida Cummings APRN ELEMENTARY SCHOOL PRINCIPAL Unavailable Un available Daylin Ludwig Unavailable Laurel Velasquez MD Unavailable Daylin Ludwig Unavailable Paula Reza MD Unavailable Porsha Michaels APRN ELEMENTARY SCHOOL PRINCIPAL Unavailable Laurel Velasquez MD Unavailable Herman, Shahida Cummings APRN ELEMENTARY SCHOOL PRINCIPAL Unavailable Un available Marilin Montaño ELEMENTARY SCHOOL PRINCIPAL Unavailable Esha Dewitt MD Unavailable [phone] Heather Mosquera MD Unavailable Paula Reza MD Unavailable Esha Dewitt MD Unavailable [phone] Valdo Escamilla PA-C Unavailable Nohelia Abarca-C Unavailable [phone] Heather Mosquera MD Unavailable Fawad York MD Unavailable [phone] Reason for Visit * Reason Onset Date Comments Patient Request for Note/Letter 01/10/2021 KASIE MONTGOMERY Encounter Details Date Type Department Care Team (Late st Contact Info) Description 01/10/2021 MyC Medical Advice [address] [phone] Shahida Sutton APRN ELEMENTARY SCHOOL PRINCIPAL Patient Request for Note/Letter (KASIE MONTGOMERY ) Social History Tobacco Use Types Packs/Day [...] have Coronavirus / COVID-19? No / Unsure 01/11/2021 9:34 AM CHIEF ORTHOPTIST documented as of this encounter Miscellaneous Notes * Telephone Encounter - Carolynn Ramon RN - 01/10/2021 1:50 PM CHIEF ORTHOPTIST RN received call from patient - unable to see letter in my chart from pcp on 01/10/2021 RN will attempt to resend letter and see if patient is able to see letter, advised that he will need to pear picker or we can fax Patient states this is a problem on your end RN advised she is able to see letter and should be viewable Nathalia Watson Nurse, PAL (Patient Advocate Liason) [facility] [phone] F ORTHOPTIST * Telephone Encounter - Carolynn Ramon RN - 01/10/2021 12:33 PM CHIEF ORTHOPTIST See my chart Nathalia Watson Nurse, ULISES (Patient Advocate Liason) [facility] [phone] F ORTHOPTIST documented in this encounter Plan of Treatment [...] documented as of this encounter Care Teams Escrow Closer Relationship Specialty Start Date End Date Shahida Sutton APRN ELEMENTARY SCHOOL PRINCIPAL PCP - General Nurse Practitioner 08/17/14 08/04/21 Paula Reza MD [address] [place] [address] [id number] PCP - General Internal Medicine 08/05/21 Shahida Sutton APRN ELEMENTARY SCHOOL PRINCIPAL Assigned PCP 07/12/14 09/30/21 Carolynn Ramon RN Personal Advocate & Liaison (PAL) 12/17/18 08/07/21 Anabela Barakat APRN ELEMENTARY SCHOOL PRINCIPAL [address] [place] [address] Assigned Heart and Vascular Provider 08/15/20 08/05/21 Fawad York MD [address] [place] [id number] Assigned Musculoskeletal Provider 12/05/20 02/05/21 Roopa Almonte MD [address] [address] Endocrinology, Diabetes, and Metabolism 01/19/21 [place] [address] [facility] 300 [place] [address] Assigned Musculoskeletal Provider 02/06/21 09/16/21 Maryse Burton PA-C [address] [place] [address] Physician Retail Bakery Manager Dermatology 04/14/21 Marquita Starkey MD [address] [facility] 200 [place] [address] Internal Medicine 05/06/21 05/06/21 Roopa Almonte MD [address] [facility] 200 [place] [address] Hospitalist Endocrinology, Diabetes, and Metabolism 05/30/21 Griffin Joshi MD [address] [facility] [address] [place] [address] Cardiovascular Disease 07/25/21 Rina Magallon, RN Lead Tactical Intelligence Officer 07/29/21 07/11/22 Griffin Joshi MD [address] [facility] [address] [place] [address] Assigned Heart and Vascular Provider 08/06/21 10/07/21 Roopa Almonte MD [address] [facility] [facility] 200 [place] [address] Assigned Endocrinology Provider 09/10/21 [place] [address] [facility] [place] [address] Assigned Musculoskeletal Provider 09/17/21 10/14/21 Lydia Bernstein PA-C [address] [place] [address] Assigned PCP 10/01/21 10/21/21 Rosa Maria Love W Community Health Worker 10/06/21 07/11/22 [place] [address] [place] [address] Assigned Musculoskeletal Provider 10/15/21 04/26/23 Paula Reza MD [address] [place] [address] Assigned PCP 10/22/21 12/23/21 Keerthi Miner APRN ELEMENTARY SCHOOL PRINCIPAL [address] [place] [address] Assigned Heart and Vascular Provider 10/08/21 02/10/22 Shahida Sutton, STRATEGIC CONSULTANT ELEMENTARY SCHOOL PRINCIPAL Assigned PCP 12/24/21 03/24/22 Porsha Michaels APRN ELEMENTARY SCHOOL PRINCIPAL [address] [place] [address] Assigned Heart and Vascular Provider 02/11/22 05/12/22 Paula Reza MD [address] [place] [address] Assigned PCP 03/25/22 04/07/22 Shahida Sutton APRN ELEMENTARY SCHOOL PRINCIPAL [address] [place] [address] Assigned PCP 04/08/22 06/30/22 Daylin Ludwig, MIKI [facility] [address] [place] [address] Cardiac Rehabilitation Therapist 05/16/23 Laurel Velasquez MD [address] [place] [address] Assigned Heart and Vascular Provider 05/13/22 06/30/22 Daylin Ludwig, EP [facility] [address] [place] [address] Cardiac Rehabilitation Therapist 06/08/22 06/09/23 aPula Reza MD [address] [address] Assigned PCP 07/01/22 07/07/22 Porsha Michaels APRN ELEMENTARY SCHOOL PRINCIPAL [address] [place] [address] Assigned Heart and Vascular Provider 07/01/22 07/07/22 Laurel Velasquez MD [address] [place] [address] Assigned Heart and Vascular Provider 07/08/22 08/04/22 Shahida Sutton APRN ELEMENTARY SCHOOL PRINCIPAL Assigned PCP 07/08/22 09/08/22 Marilin Montaño ELEMENTARY SCHOOL PRINCIPAL [address] [place] [address] Assigned Heart and Vascular Provider 08/05/22 Esha Dewitt MD 420 [facility] 36 [place] [address] Gastroenterology 09/06/22 Heather Mosquera MD [address] [place] [address] Internal Medicine 09/06/22 Paula Reza MD [address] [facility] 200 [place], [place] [address] Assigned PCP 09/09/22 01/05/23 Esha Dewitt MD 420 [facility] 36 [place], [place] [address] Assigned Gastroenterology Provider 09/23/22 Valdo Escamilla PA-C [address] [facility] [address] [place] [address] Assigned Neuroscience Provider 09/30/22 Nohelia Abarca PA-C [address] [facility] [place] [address] Physician Retail Bakery Manager Gastroenterology 10/03/22 Heather Mosquera MD [address] [place] [address] Assigned PCP 01/06/23 Fawad York MD 909 [place] [address] Assigned Musculoskeletal Provider 04/27/23 06/25/23 documented as of this encounter
--- OUTSIDE RECORDS SUMMARY | 2023-09-18 13:49 | XMS_ITS | Encounter Summary ---
Author Organization [facility] Address [address] [place] [address] Care Team Providers Care Technical Support Assistant Name Role Phone HermanShahida APRN WATER PROJECT MANAGER Primary Care Provi ford Unavailable Shahida Sutton APRN WATER PROJECT MANAGER Unavailable Un available Carolynn Ramon RN Unavailable [phone] Anabela Barakat APRN WATER PROJECT MANAGER Unavailable Fawad York MD Unavailable [phone] Roopa Almonte MD Unavailable [phone] Augustine Callaway MD Unavailable Maryse Burton PA-C Unavailable [phone] Marquita Starkey MD Unavailable [phone] Roopa Almonte MD Unavailable [phone] Griffin Joshi MD Unavailable Rina Magallon RN Unavailable [phone] Paula Reza MD Primary Care Provider [phone] Griffin Joshi MD Unavailable Roopa Almonte MD Unavailable [phone] Basilio Morillo DO Unavailable Lydia Bernstein-C Unavailable Rosa Maria Love Unavailable Augustine Callaway MD Unavailable Paula Reza MD Unavailable Keerthi Miner APRN WATER PROJECT MANAGER Unavailable [phone] Herman, Shahida Cummings APRN WATER PROJECT MANAGER Unavailable Un available Porsha Michaels APRN WATER PROJECT MANAGER Unavailable Paula Reza MD Unavailable Herman, Shahida Cummings APRN WATER PROJECT MANAGER Unavailable Un available Daylin Ludwig Unavailable Laurel Velasquez MD Unavailable Daylin Ludwig Unavailable Paula Reza MD Unavailable Porsha Michaels APRN WATER PROJECT MANAGER Unavailable Laurel Velasquez MD Unavailable Herman, Shahida Cummings APRN WATER PROJECT MANAGER Unavailable Un available Marilin Montaño WATER PROJECT MANAGER Unavailable Esha Dewitt MD Unavailable [phone] Heather Mosquera MD Unavailable Paula Reza MD Unavailable Esha Dewitt MD Unavailable [phone] Valdo Escamilla-C Unavailable Nohelia Abarca PA-C Unavailable [phone] Heather Mosquera MD Unavailable Fawad York MD Unavailable Encounter Details Date Type Department Care Team (Late st Contact Info) Description 12/14/[address] [address] Shahida Sutton APRN CNP Social History Tobacco [...] encounter Miscellaneous Notes * Telephone Encounter - Liliana Taylor PTA - 12/14/2020 8:13 AM CDTSummary: return to work letter Reason for call: Patient reporting a symptom Symptom or request: Has been seeing specialist for back and shoulder pain and has been out of work but is Starting to improve--would like to discuss his condition and a timeline on getting back to work and would need a letter to go back to work. Duration (how long have symptoms been present): week, months and years--recently flare up with no work for 1 week Have you been treated for this before? Yes Additional comments: A letter from orthopedist regarding his shoulder should be in [facility] and seeing PT with [facility] Phone Number patient can be reached at: Home number on file [phone] (home) Best Time: Can we leave a detailed message on this number: YES Call taken on 12/14/2020 at 8:14 AM by Liliana Taylor PTA documented in this encounter Plan of Treatment [...] documented as of this encounter Care Teams Technical Support Assistant Relationship Specialty Start Date End Date Shahida Sutton APRN WATER PROJECT MANAGER PCP - General Nurse Practitioner 08/17/14 08/04/21 Paula Reza MD [address] [place], [place] [address] PCP - General Internal Medicine 08/05/21 Shahida Sutton APRN WATER PROJECT MANAGER Assigned PCP 07/12/14 09/30/21 Carolynn Ramon, KASIE Personal Advocate & Liaison (PAL) 12/17/18 08/07/21 Anabela Barakat APRN WATER PROJECT MANAGER [address] [place] [address] Assigned Heart and Vascular Provider 08/15/20 08/05/21 Fawad York MD [address] [place], [place] [address] Assigned Musculoskeletal Provider 12/05/20 02/05/21 Roopa Almonte MD [address] 200 [place] [address] Endocrinology, Diabetes, and Metabolism 01/19/21 [place] [address] [facility] 300 [place] [address] Assigned Musculoskeletal Provider 02/06/21 09/16/21 Maryse Burton PA-C [address] [place] [address] Physician Clinic Licensed Practical Nurse Dermatology 04/14/21 Marquita Starkey MD [address] [facility] 200 [place], [place] [address] Internal Medicine 05/06/21 05/06/21 Roopa Almonte MD [address] [facility] 200 [place] [address] Hospitalist Endocrinology, Diabetes, and Metabolism 05/30/21 Griffin Joshi MD [address] [facility] [address] [place] [address] Cardiovascular Disease 07/25/21 Rina Magallon, RN Lead Capsule 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 07/29/21 07/11/22 Griffin Joshi MD [address] [facility] [address] [place] [address] Assigned Heart and Vascular Provider 08/06/21 10/07/21 Roopa Almonte MD [address] [facility] 200 [place], [place] [address] Assigned Endocrinology Provider 09/10/21 [place] [address] [address] [place] [address] Assigned Musculoskeletal Provider 09/17/21 10/14/21 Lydia Bernstein PA-C [address] [place] [address] Assigned PCP 10/01/21 10/21/21 Rosa Maria Love Cristina Community Health Worker 10/06/21 07/11/22 [place] [address] [place] [address] Assigned Musculoskeletal Provider 10/15/21 04/26/23 Paula Reza MD [address] 200 [place] [address] Assigned PCP 10/22/21 12/23/21 Keerthi Miner APRN WATER PROJECT MANAGER [address] [place] [address] Assigned Heart and Vascular Provider 10/08/21 02/10/22 Shahida Sutton APRN WATER PROJECT MANAGER Assigned PCP 12/24/21 03/24/22 Porsha Michaels APRN WATER PROJECT MANAGER [address] [place] [address] Assigned Heart and Vascular Provider 02/11/22 05/12/22 Paula Reza MD [address] 200 [place] [address] Assigned PCP 03/25/22 04/07/22 Shahida Sutton APRN WATER PROJECT MANAGER [address] [place] [address] Assigned PCP 04/08/22 06/30/22 Daylin Ludwig, MIKI [facility] [address] [place] [address] Cardiac Rehabilitation Therapist 05/16/23 Laurel Velasquez MD [address] [place] [address] Assigned Heart and Vascular Provider 05/13/22 06/30/22 Daylin Ludwig, MIKI [facility] [address] [place] [address] Cardiac Rehabilitation Therapist 06/08/22 06/09/23 Paula Reza MD [address] [facility] 200 [place] [address] Assigned PCP 07/01/22 07/07/22 Porsha Michaels APRN WATER PROJECT MANAGER [address] [place] [address] Assigned Heart and Vascular Provider 07/01/22 07/07/22 Laurel Velasquez MD [address] [place] [address] Assigned Heart and Vascular Provider 07/08/22 08/04/22 Shahida Sutton APRN WATER PROJECT MANAGER Assigned PCP 07/08/22 09/08/22 Marilin Montaño, WATER PROJECT MANAGER [address] [place] [address] Assigned Heart and Vascular Provider 08/05/22 Esha Dewitt MD [address] [address] Gastroenterology 09/06/22 Heather Mosquera MD [address] [facility] [facility] [address] [place] [address] Internal Medicine 09/06/22 Paula Reza MD [address] [facility] 200 [place] [address] Assigned PCP 09/09/22 01/05/23 Esha Dewitt MD [address] [place] [address] Assigned Gastroenterology Provider 09/23/22 Valdo Escamilla PA-C [address] [facility] [address] [place] [address] Assigned Neuroscience Provider 09/30/22 Nohelia Abarca PA-C [address]50 [place] [address] Physician Clinic Licensed Practical Nurse Gastroenterology 10/03/22 Heather Mosquera MD [address] [facility] [address] [facility] 150 [place] [address] Assigned PCP 01/06/23 Fawad York MD [address] [place] [address] Assigned Musculoskeletal Provider 04/27/23 06/25/23 documented as of this encounter
--- OUTSIDE RECORDS SUMMARY | 2023-09-18 13:49 | XMS_ITS | Encounter Summary ---
Author Organization [facility] Address [address] [place] [address] Care Team Providers Care Sporting Goods Sales Manager Name Role Phone HermanShahida APRN STATIONARY ENGINEER Primary Care Provi ford Unavailable Shahida Sutton APRN STATIONARY ENGINEER Unavailable Un available Carolynn Ramon RN Unavailable [phone] Anabela Barakat APRN STATIONARY ENGINEER Unavailable Roopa Almonte MD Unavailable [phone] Augustine Callaway MD Unavailable Maryse Burton PA-C Unavailable [phone] Roopa Almonte MD Unavailable [phone] Griffin Joshi MD Unavailable Rina Magallon RN Unavailable [phone] Paula Reza MD Primary Care Provider [phone] Griffin Joshi MD Unavailable Roopa Almonte MD Unavailable [phone] Basilio Morillo DO Unavailable [phone] Lydia Bernstein PA-C Unavailable Rosa Maria Love Unavailable Augustine Callaway MD Unavailable Paula Reza MD Unavailable Keerthi Miner APRN STATIONARY ENGINEER Unavailable Herman, Shahida Cummings MUFFLE WORKER STATIONARY ENGINEER Unavailable Un available Porsha Michaels APRN STATIONARY ENGINEER Unavailable [phone] Paula Reza MD Unavailable Herman, Shahida Cummings APRN STATIONARY ENGINEER Unavailable Un available Daylin Ludwig EP Unavailable [phone] Laurel Velasquez MD Unavailable Fietedavid, Daylin Juárez EP Unavailable [phone] Paula Reza MD Unavailable Porsha Michaels APRN STATIONARY ENGINEER Unavailable [phone] Laurel Velasquez MD Unavailable [phone] Herman, Shahida Cummings APRN STATIONARY ENGINEER Unavailable Un available Marilin Montaño STATIONARY ENGINEER Unavailable Esha Dewitt MD Unavailable [phone] Heather Mosquera MD Unavailable [phone] Paula Reza MD Unavailable Esha Dewitt MD Unavailable [phone] Valdo Escamilla PA-C Unavailable [phone] Nohelia Abarca PA-C Unavailable [phone] Heather Mosquera MD Unavailable [phone] Fawad York MD Unavailable [phone] Encounter Details Date Type Department Care Team (Late st Contact Info) Description 05/27/2021 MyC Medical Advice [facility] Anticoagulation [address] [address] Jessica Lemus RN Social History Tobacco [...] have Coronavirus / COVID-19? 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 documented as of this encounter Plan of [...] documented as of this encounter Care Teams Sporting Goods Sales Manager Relationship Specialty Start Date End Date Shahida Sutton APRN STATIONARY ENGINEER PCP - General Nurse Practitioner 08/17/14 08/04/21 Paula Reza MD [address] [address] PCP - General Internal Medicine 08/05/21 Shahida Sutton APRN STATIONARY ENGINEER Assigned PCP 07/12/14 09/30/21 Carolynn Rmaon RN Personal Advocate & Liaison (PAL) 12/17/18 08/07/21 Anabela Barakat APRN STATIONARY ENGINEER 1700 [place] [address] Assigned Heart and Vascular Provider 08/15/20 08/05/21 Roopa Almonte MD [address] [facility] 200 [place] [address] Endocrinology, Diabetes, and Metabolism 01/19/21 [place] [address] [facility] 300 [place] [address] Assigned Musculoskeletal Provider 02/06/21 09/16/21 Maryse Burton PA-C [address] [place] [address] Physician Horizontal Resaw Operator Dermatology 04/14/21 Roopa Almonte MD [address] [facility] 200 [place] [address] Hospitalist Endocrinology, Diabetes, and Metabolism 05/30/21 Griffin Joshi MD [address] [facility] [address] [place] [address] Cardiovascular Disease 07/25/21 Rina Magallon, RN Lead Back Winder 07/29/21 07/11/22 Griffin Joshi MD [address] [facility] [address] [place] [address] Assigned Heart and Vascular Provider 08/06/21 10/07/21 Roopa Almonte MD [address] 200 [place] [address] Assigned Endocrinology Provider 09/10/21 [place] [address] [facility] [place] [address] Assigned Musculoskeletal Provider 09/17/21 10/14/21 Lydia Bernstein PA-C [address] [place] [address] Assigned PCP 10/01/21 10/21/21 Rosa Maria Love CHW Community Health Worker 10/06/21 07/11/22 [place] [address] [place] [address] Assigned Musculoskeletal Provider 10/15/21 04/26/23 Paula Reza MD [address] [facility] 200 [place] [address] Assigned PCP 10/22/21 12/23/21 Keerthi Miner APRN STATIONARY ENGINEER [address] [place] [address] Assigned Heart and Vascular Provider 10/08/21 02/10/22 Shahida Sutton APRN STATIONARY ENGINEER Assigned PCP 12/24/21 03/24/22 Porsha Michaels APRN STATIONARY ENGINEER [address] [place] [address] Assigned Heart and Vascular Provider 02/11/22 05/12/22 Paula Reza MD [address] [place] [address] Assigned PCP 03/25/22 04/07/22 Shahida Sutton APRN STATIONARY ENGINEER [address] [place] [address] Assigned PCP 04/08/22 06/30/22 Daylin Ludwig, EP [facility] [address] [place] [address] Cardiac Rehabilitation Therapist 05/16/23 Laurel Velasquez MD [address] [place] [address] Assigned Heart and Vascular Provider 05/13/22 06/30/22 Daylin Ludwig, MIKI [facility] [address] [place] [address] Cardiac Rehabilitation Therapist 06/08/22 06/09/23 Paula Reza MD [address] [place] [address] Assigned PCP 07/01/22 07/07/22 Porsha Michaels APRN STATIONARY ENGINEER [address] [place] [address] Assigned Heart and Vascular Provider 07/01/22 07/07/22 Laurel Velasquez MD [address] [place] [address] Assigned Heart and Vascular Provider 07/08/22 08/04/22 Shahida Sutton APRN STATIONARY ENGINEER Assigned PCP 07/08/22 09/08/22 Marilin Montaño, STATIONARY ENGINEER [address] [facility] [place] [facility] [address] Assigned Heart and Vascular Provider 08/05/22 Esha Dewitt MD [address] [address] MD Gastroenterology 09/06/22 Heather Mosquera MD [address] [place], [place] [address] Internal Medicine 09/06/22 Paula Reza MD [address] [facility] 200 [place], [place] [address] Assigned PCP 09/09/22 01/05/23 Esha Dewitt MD [address] [place] [address] Assigned Gastroenterology Provider 09/23/22 Valdo Escamilla PA-C [address] [facility] [address] [place] [address] Assigned Neuroscience Provider 09/30/22 Nohelia Abarca PA-C [address]50 [place] [address] Physician Horizontal Resaw Operator Gastroenterology 10/03/22 Heather Mosquera MD [address] [place] [address] Assigned PCP 01/06/23 Fawad York MD 9 [place] [address] Assigned Musculoskeletal Provider 04/27/23 06/25/23 documented as of this encounter
--- OUTSIDE RECORDS SUMMARY | 2023-09-18 13:49 | XMS_ITS | Encounter Summary ---
Author Organization [facility] Address [address] [place] [address] Care Team Providers Care First Aid Trainer Name Role Phone HermanShahida APRN PASTRY COOK APPRENTICE Primary Care Provi ford Unavailable Shahida Sutton APRN PASTRY COOK APPRENTICE Unavailable Un available Carolynn Ramon RN Unavailable [phone] Anabela Barakat APRN PASTRY COOK APPRENTICE Unavailable Fawad York MD Unavailable [phone] Roopa Almonte MD Unavailable [phone] Augustine Callaway MD Unavailable Maryse Burton PA-C Unavailable [phone] Marquita Starkey MD Unavailable [phone] Roopa Almonte MD Unavailable [phone] Griffin Joshi MD Unavailable Rina Magallon RN Unavailable [phone] Paula Reza MD Primary Care Provider [phone] Griffin Joshi MD Unavailable Roopa Almonte MD Unavailable [phone] Basilio Morillo DO Unavailable Lydia Bernstein PA-C Unavailable Rosa Maria Love Unavailable Augustine Callaway MD Unavailable Paula Reza MD Unavailable Keerthi Miner APRN PASTRY COOK APPRENTICE Unavailable [phone] Herman, Shahida Cummings NECKTIE TURNER PASTRY COOK APPRENTICE Unavailable Un available Porsha Michaels APRN PASTRY COOK APPRENTICE Unavailable Paula Reza MD Unavailable Herman, Shahida Cummings APRN PASTRY COOK APPRENTICE Unavailable Un available Daylin Ludwig Unavailable Laurel Velasquez MD Unavailable Daylin Ludwig Unavailable Paula Reza MD Unavailable Porsha Michaels APRN PASTRY COOK APPRENTICE Unavailable Laurel Velasquez MD Unavailable Herman, Shahida Cummings APRN PASTRY COOK APPRENTICE Unavailable Un available Marilin Montaño PASTRY COOK APPRENTICE Unavailable Esha Dewitt MD Unavailable [phone] Heather Mosquera MD Unavailable Paula Reza MD Unavailable Esha Dewitt MD Unavailable [phone] Valdo Escamilla PA-C Unavailable Nohelia Abarca PA-C Unavailable [phone] Heather Mosquera MD Unavailable Fawad York MD Unavailable Encounter Details Date Type Department Care Team (Late st Contact Info) Description 01/04/2021 MyC Medical Advice [address] [phone] Asuncion Olson Social History Tobacco Use Types Packs/Day Years [...] documented as of this encounter Care Teams First Aid Trainer Relationship Specialty Start Date End Date Shahida Sutton APRN PASTRY COOK APPRENTICE PCP - General Nurse Practitioner 08/17/14 08/04/21 Paula Reza MD [address] [place] [facility] 200 [place] [address] PCP - General Internal Medicine 08/05/21 Shahida Sutton APRN PASTRY COOK APPRENTICE Assigned PCP 07/12/14 09/30/21 Carolynn Ramon, KASIE Personal Advocate & Liaison (PAL) 12/17/18 08/07/21 Anabela Barakat APRN PASTRY COOK APPRENTICE 1700 [place] [address] Assigned Heart and Vascular Provider 08/15/20 08/05/21 Fawad York MD [address] [place], [place] [address] Assigned Musculoskeletal Provider 12/05/20 02/05/21 Roopa Almonte MD [address] [place], [place] [address] Endocrinology, Diabetes, and Metabolism 01/19/21 [place] [address] [facility] 300 [place] [address] Assigned Musculoskeletal Provider 02/06/21 09/16/21 Maryse Burton, PAAna MariaC [address]200 [place] [address] Physician Press Tender Star Signal Dermatology 04/14/21 Marquita Starkey MD [address] [place], [place] [address] Internal Medicine 05/06/21 05/06/21 Roopa Almonte MD [address] [place] [address] Hospitalist Endocrinology, Diabetes, and Metabolism 05/30/21 Griffin Joshi MD [address] [place] [address] Cardiovascular Disease 07/25/21 Rina Magallon, RN Lead Roll Over Press Operator 07/29/21 07/11/22 Griffin Joshi MD [address] [place] [address] Assigned Heart and Vascular Provider 08/06/21 10/07/21 Roopa Almonte MD [address] [place] [address] 200 [place] [address] Assigned Endocrinology Provider 09/10/21 [place] [address] [place] [address] Assigned Musculoskeletal Provider 09/17/21 10/14/21 Lydia Bernstein PA-C [address] [place] [address] Assigned PCP 10/01/21 10/21/21 Rosa Maria Love CHW Community Health Worker 10/06/21 07/11/22 [place] [address] [facility] 300 [place] [address] Assigned Musculoskeletal Provider 10/15/21 04/26/23 Paula Reza MD [address] [facility] 200 [place], [place] [address] Assigned PCP 10/22/21 12/23/21 Keerthi Miner NECKTIE TURNER PASTRY COOK APPRENTICE [address] [place] [address] Assigned Heart and Vascular Provider 10/08/21 02/10/22 Shahida Sutton APRN PASTRY COOK APPRENTICE Assigned PCP 12/24/21 03/24/22 Porsha Michaels APRN PASTRY COOK APPRENTICE [address] [place] [address] Assigned Heart and Vascular Provider 02/11/22 05/12/22 Paula Reza MD [address] [facility] 200 [place] [address] Assigned PCP 03/25/22 04/07/22 Shahida Sutton NECKTIE TURNER PASTRY COOK APPRENTICE [address] [place] [address] Assigned PCP 04/08/22 06/30/22 Daylin Ludwig, MIKI [facility] [address] [place] [address] Cardiac Rehabilitation Therapist 05/16/23 Laurel Velasquez MD [address] [place] [address] Assigned Heart and Vascular Provider 05/13/22 06/30/22 Daylin Ludwig, MIKI [facility] [address] [place] [address] Cardiac Rehabilitation Therapist 06/08/22 06/09/23 Paula Reza MD [address] [place] [address] Assigned PCP 07/01/22 07/07/22 Porsha Michaels APRN PASTRY COOK APPRENTICE [address] [place] [address] Assigned Heart and Vascular Provider 07/01/22 07/07/22 Laurel Velasquez MD [address] [place] [address] Assigned Heart and Vascular Provider 07/08/22 08/04/22 Shahida Sutton APRN PASTRY COOK APPRENTICE Assigned PCP 07/08/22 09/08/22 Marilin Montaño PASTRY COOK APPRENTICE [address] [place] [address] Assigned Heart and Vascular Provider 08/05/22 Esha Dewitt MD [address] [place] [address] Gastroenterology 09/06/22 Heather Mosquera MD [address] [place] [address] Internal Medicine 09/06/22 Paula Reza MD [address] [place] [address] Assigned PCP 09/09/22 01/05/23 Esha Dewitt MD [address] [place] [address] Assigned Gastroenterology Provider 09/23/22 Valdo Escamilla PA-C 6[address] [facility] 103 [place] [address] Assigned Neuroscience Provider 09/30/22 Nohelia Abarca PA-C [address]50 [place] [address] Physician Press Tender [employer] Gastroenterology 10/03/22 Heather Mosquera MD 6545 [facility] 150 [place] [address] Assigned PCP 01/06/23 Fawad York MD 909 [place] [address] Assigned Musculoskeletal Provider 04/27/23 06/25/23 documented as of this encounter
--- OUTSIDE RECORDS SUMMARY | 2023-09-18 13:49 | XMS_ITS | Encounter Summary ---
Author Organization [place] Address [address] [place] [address] Care Team Providers Care Supervisor Firearms Name Role Phone HermanShahida APRN PRINTING PLATE MAKER Primary Care Provi ofrd Unavailable Shahida Sutton APRN PRINTING PLATE MAKER Unavailable Un available Carolynn Ramon RN Unavailable [phone] Anabela Barakat APRN PRINTING PLATE MAKER Unavailable Roopa Almonte MD Unavailable [phone] Augustine Callaway MD Unavailable Maryse Burton PA-C Unavailable [phone] Roopa Almonte MD Unavailable [phone] Griffin Joshi MD Unavailable Rina Magallon RN Unavailable [phone] Paula Reza MD Primary Care Provider [phone] Griffin Joshi MD Unavailable Roopa Alomnte MD Unavailable [phone] Basilio Morillo DO Unavailable [phone] Lydia Bernstein PA-C Unavailable Kate Rosa Maria CHW Unavailable Augustine Callaway MD Unavailable Paula Reza MD Unavailable Keerthi Miner APRN PRINTING PLATE MAKER Unavailable Herman, Shahida Cummings APRN PRINTING PLATE MAKER Unavailable Un available Porsha Michaels APRN PRINTING PLATE MAKER Unavailable [phone] Paula Reza MD Unavailable Herman, Shahida Cummings APRN PRINTING PLATE MAKER Unavailable Un available Daylin Ludwig EP Unavailable [phone] Laurel Velasquez MD Unavailable [phone] Fietedavid, Daylin Juárez EP Unavailable [phone] Paula Reza MD Unavailable Porsha iMchaels APRN PRINTING PLATE MAKER Unavailable [phone] Laurel Velasquez MD Unavailable [phone] Herman, Shahida Cummings APRN PRINTING PLATE MAKER Unavailable Un available Marilin Montaño PRINTING PLATE MAKER Unavailable [phone] Esha Dewitt MD Unavailable [phone] Heather Mosquera MD Unavailable [phone] Paula Reza MD Unavailable Esha Dewitt MD Unavailable [phone] Valdo Escamilla PA-C Unavailable + [phone] Nohelia Abarca PA-C Unavailable [phone] Heather Mosquera MD Unavailable [phone] Fawad York MD Unavailable [phone] Reason for Visit * Reason Onset Date Comments Appointment 07/09/2021 Encounter Details Date Type Department Care Team (Late st Contact Info) Description 07/09/[address] [address] Shahida Sutton, BRANCH OPERATIONS MANAGER PRINTING PLATE MAKER Appointment Social History Tobacco Use Types Packs/Day Years [...] encounter Miscellaneous Notes * Telephone Encounter - Matilde Allen CMA - 07/12/2021 6:59 AM CDT Sent [employer] message to pt will appointment time. Will watch to make sure pt reads it. * Telephone Encounter - Alaina Emmanuel - 07/09/2021 12:12 PM CDT Reason for Call: Other appointment Detailed comments: pt needs hospital follow up within 1-5 days with pcp or someone on team. Pt doesnot want to see , or . please follow up with patient because pt has appt this week with . Phone Number Patient can be reached at: Cell number on file: Telephone Information: Best Time: any Can we leave a detailed message on this number? YES Call taken on 07/09/2021 at 12:13 PM by Alaina Emmanuel documented in this encounter Plan of Treatment [...] documented as of this encounter Care Teams Supervisor Firearms Relationship Specialty Start Date End Date hSahida Sutton APRN PRINTING PLATE MAKER PCP - General Nurse Practitioner 08/17/14 08/04/21 Paula Reza MD [address] [place], [place] [address] PCP - General Internal Medicine 08/05/21 Shahida Sutton APRN PRINTING PLATE MAKER Assigned PCP 07/12/14 09/30/21 Carolynn Ramon RN Personal Advocate & Liaison (PAL) 12/17/18 08/07/21 Anabela Barakat APRN PRINTING PLATE MAKER [address] [place] [address] Assigned Heart and Vascular Provider 08/15/20 08/05/21 Roopa Almonte MD [address] [facility] 200 [place] [address] Endocrinology, Diabetes, and Metabolism 01/19/21 [place] [address] [place] [address] Assigned Musculoskeletal Provider 02/06/21 09/16/21 Maryse Burton, PAAna MariaC [address] [place] [address] Physician Reinforcing Iron Worker Helper Dermatology 04/14/21 Roopa Almonte MD [address] [facility] 200 [place] [address] Hospitalist Endocrinology, Diabetes, and Metabolism 05/30/21 Griffin Joshi MD [address] [place] [address] Cardiovascular Disease 07/25/21 Rina Magallon, RN Lead Biostatistics Professor 07/29/21 07/11/22 Griffin Joshi MD [address] [place] [address] Assigned Heart and Vascular Provider 08/06/21 10/07/21 Roopa Almonte MD [address] [facility] 200 [place], [place] [address] Assigned Endocrinology Provider 09/10/21 [place] [address] [facility] [place] [address] Assigned Musculoskeletal Provider 09/17/21 10/14/21 Lydia Bernstein PA-C [address] [place], [place] [address] Assigned PCP 10/01/21 10/21/21 Rosa Maria Love CHW Community Health Worker 10/06/21 07/11/22 [place] [address] [facility] [facility] [address] [place] [address] Assigned Musculoskeletal Provider 10/15/21 04/26/23 Paula Reza MD [address] [place] [address] Assigned PCP 10/22/21 12/23/21 Keerthi Miner APRN PRINTING PLATE MAKER [address] [place] [address] Assigned Heart and Vascular Provider 10/08/21 02/10/22 Shahida Sutton APRN PRINTING PLATE MAKER Assigned PCP 12/24/21 03/24/22 Porsha Michaels APRN PRINTING PLATE MAKER [address] [place] [address] Assigned Heart and Vascular Provider 02/11/22 05/12/22 Paula Reza MD [address] 200 [place] [address] Assigned PCP 03/25/22 04/07/22 Shahida Sutton APRN PRINTING PLATE MAKER [address] [place] [address] Assigned PCP 04/08/22 06/30/22 Daylin Ludwig EP [facility] [address] [address] Cardiac Rehabilitation Therapist 05/16/23 Laurel Velasquez MD [address] [place] [address] Assigned Heart and Vascular Provider 05/13/22 06/30/22 Daylin Ludwig EP [facility] [address] [place] [address] Cardiac Rehabilitation Therapist 06/08/22 06/09/23 Paula Reza MD [address] [facility] [address] [place], [place] [address] Assigned PCP 07/01/22 07/07/22 Porsha Michaels APRN PRINTING PLATE MAKER [address] [place] [address] Assigned Heart and Vascular Provider 07/01/22 07/07/22 Laurel Velasquez MD [address] [place] [address] Assigned Heart and Vascular Provider 07/08/22 08/04/22 Shahida Sutton APRN PRINTING PLATE MAKER Assigned PCP 07/08/22 09/08/22 Marilin Montaño, PRINTING PLATE MAKER [address] [place] [address] Assigned Heart and Vascular Provider 08/05/22 Esha Dewitt MD [address] [place] [address] 36 [place], [place] [address] Gastroenterology 09/06/22 Heather Mosquera MD [address] [place] [address] Internal Medicine 09/06/22 Paula Reza MD [address] [place] [address] Assigned PCP 09/09/22 01/05/23 Esha Dewitt MD 420 [facility] 36 [place] [address] Assigned Gastroenterology Provider 09/23/22 Valdo Escamilla PA-C [address] [facility] [address] [place], [place] [id number] Assigned Neuroscience Provider 09/30/22 Nohelia Abarca PA-C [address] [facility] [address] Physician Reinforcing Iron Worker Helper Gastroenterology 10/03/22 Heather Mosquera MD [address] [facility] [address] [facility] 150 [place] [address] Assigned PCP 01/06/23 Fawad York MD 909 [place] [address] Assigned Musculoskeletal Provider 04/27/23 06/25/23 documented as of this encounter
--- OUTSIDE RECORDS SUMMARY | 2023-09-18 13:49 | XMS_ITS | Encounter Summary ---
Author Organization [place] Address [address] [place] [address] Care Team Providers Care Special Needs Tutor Name Role Phone HermanShahida APRN MONEY MARKET DEALER Primary Care Provi ford Unavailable Shahida Sutton APRN MONEY MARKET DEALER Unavailable Un available Carolynn Ramon RN Unavailable [phone] Anabela Barakat APRN MONEY MARKET DEALER Unavailable Roopa Almonte MD Unavailable [phone] Augustine Callaway MD Unavailable Maryse Burton PA-C Unavailable [phone] Roopa Almonte MD Unavailable [phone] Griffin Joshi MD Unavailable Rina Magallon RN Unavailable [phone] Paula Reza MD Primary Care Provider [phone] Griffin Joshi MD Unavailable Roopa Almonte MD Unavailable [phone] Basilio Morillo DO Unavailable [phone] Lydia Bernstein PA-C Unavailable Kate Rosa Maria Cristina Unavailable Augustine Callaway MD Unavailable Paula Reza MD Unavailable Keerthi Miner APRN MONEY MARKET DEALER Unavailable Herman, Shahida Cummings KILN DRAWER MONEY MARKET DEALER Unavailable Un available Porsha Michaels APRN MONEY MARKET DEALER Unavailable [phone] Paula Reza MD Unavailable Herman, Shahida Cummnigs APRN MONEY MARKET DEALER Unavailable Un available Daylin Ludwig EP Unavailable [phone] Laurel Velasquez MD Unavailable [phone] Fietedavid, Daylin Juárez EP Unavailable [phone] Paula Reza MD Unavailable Porsha Michaels APRN MONEY MARKET DEALER Unavailable [phone] Laurel Velasquez MD Unavailable [phone] Herman, Shahida Cummings APRN MONEY MARKET DEALER Unavailable Un available Marilin Montaño MONEY MARKET DEALER Unavailable [phone] Esha Dewitt MD Unavailable [phone] Heather Mosquera MD Unavailable [phone] Paula Reza MD Unavailable Esha Dewitt MD Unavailable [phone] Valdo Escamilla PA-C Unavailable + [phone] Nohelia Abarca PA-C Unavailable [phone] Heather Mosquera MD Unavailable [phone] Fawad York MD Unavailable [phone] Encounter Details Date Type Department Care Team (Late st Contact Info) Description 05/24/2021 [facility] [address] [address] Anthony, Mary [place], [place] Social History Tobacco Use Types Packs/Day [...] COVID-19? No / Unsure 05/03/2021 9:00 AM [employer] documented as of this encounter Plan of [...] documented as of this encounter Care Teams Special Needs Tutor Relationship Specialty Start Date End Date Shahida Sutton APRN MONEY MARKET DEALER PCP - General Nurse Practitioner 08/17/14 08/04/21 Paula Reza MD [address] [facility] 200 [place] [address] PCP - General Internal Medicine 08/05/21 Shahida Sutton APRN MONEY MARKET DEALER Assigned PCP 07/12/14 09/30/21 Carolynn Ramon RN Personal Advocate & Liaison (PAL) 12/17/18 08/07/21 Anabela Barakat APRN MONEY MARKET DEALER 1700 [place] [address] Assigned Heart and Vascular Provider 08/15/20 08/05/21 Roopa Almonte MD [address] [facility] 200 [place] [address] Endocrinology, Diabetes, and Metabolism 01/19/21 [place] [address] [facility] 300 [place] [address] Assigned Musculoskeletal Provider 02/06/21 09/16/21 Maryse Burton PA-C 5200 [place] [address] Physician Datastage Developer Dermatology 04/14/21 Roopa Almonte MD [address] [facility] 200 [place] [address] Hospitalist Endocrinology, Diabetes, and Metabolism 05/30/21 Griffin Joshi MD 6[address] [facility] [address] [place] [address] Cardiovascular Disease 07/25/21 Rina Magallon, RN Lead Frit Maker 07/29/21 07/11/22 Griffin Joshi MD 6[address] [facility] [address] [place] [address] Assigned Heart and Vascular Provider 08/06/21 10/07/21 Roopa Almonte MD [address] 200 [place] [address] Assigned Endocrinology Provider 09/10/21 [place] [address] [facility] [address] [place] [address] Assigned Musculoskeletal Provider 09/17/21 10/14/21 Lydia Bernstein PA-C [address] [place] [address] Assigned PCP 10/01/21 10/21/21 Rosa Maria Love CHW Community Health Worker 10/06/21 07/11/22 [place] [address] [place] [address] Assigned Musculoskeletal Provider 10/15/21 04/26/23 Paula Reza MD [address] [facility] 200 [place] [address] Assigned PCP 10/22/21 12/23/21 Keerthi Miner APRN MONEY MARKET DEALER [address] [place] [address] Assigned Heart and Vascular Provider 10/08/21 02/10/22 Shahida Sutton APRN MONEY MARKET DEALER Assigned PCP 12/24/21 03/24/22 Porsha Michaels APRN MONEY MARKET DEALER [address] [place] [address] Assigned Heart and Vascular Provider 02/11/22 05/12/22 Paula Reza MD [address] [place] [address] Assigned PCP 03/25/22 04/07/22 Shahida Sutton APRN MONEY MARKET DEALER [address] [place] [address] Assigned PCP 04/08/22 06/30/22 Daylin Ludwig, EP [facility] [address] [place] [address] Cardiac Rehabilitation Therapist 05/16/23 Laurel Velasquez MD [address] [place] [address] Assigned Heart and Vascular Provider 05/13/22 06/30/22 Daylin Ludwig, MIKI [facility] [address] [place] [address] Cardiac Rehabilitation Therapist 06/08/22 06/09/23 Paula Reza MD [address] [place] [address] Assigned PCP 07/01/22 07/07/22 Porsha Michaels APRN MONEY MARKET DEALER [address] [place] [address] Assigned Heart and Vascular Provider 07/01/22 07/07/22 Laurel Velasquez MD [address] [place] [address] Assigned Heart and Vascular Provider 07/08/22 08/04/22 Shahida Sutton APRN MONEY MARKET DEALER Assigned PCP 07/08/22 09/08/22 Marilin Montaño, MONEY MARKET DEALER [address] [facility] [place] [address] Assigned Heart and Vascular Provider 08/05/22 Esha Dewitt MD [address] [address] MD Gastroenterology 09/06/22 Heather Mosquera MD [address] [place], [place] [address] Internal Medicine 09/06/22 Paula Reza MD [address] [facility] 200 [place], [place] [address] Assigned PCP 09/09/22 01/05/23 Esha Dewitt MD [address] [place] [address] Assigned Gastroenterology Provider 09/23/22 Valdo Escamilla PA-C [address] [facility] [address] [place] [address] Assigned Neuroscience Provider 09/30/22 Nohelia Abarca PA-C 2450 [place] [address] Physician Datastage Developer Gastroenterology 10/03/22 Heather Mosquera MD [address] [place] [address] Assigned PCP 01/06/23 Fawad York MD [address] [place] [address] Assigned Musculoskeletal Provider 04/27/23 06/25/23 documented as of this encounter
--- OUTSIDE RECORDS SUMMARY | 2023-09-18 13:49 | XMS_ITS | Encounter Summary ---
Author Organization [place] Address [address] [place] [address] Care Team Providers Care Peoplesoft Administrator Name Role Phone HermanShahida APRN TAP DANCER Primary Care Provi ford Unavailable Shahida Sutton APRN TAP DANCER Unavailable Un available Carolynn Ramon RN Unavailable [phone] Anabela Barakat APRN TAP DANCER Unavailable Fawad York MD Unavailable [phone] Roopa Almonte MD Unavailable [phone] Augustine Callaway MD Unavailable Maryse Burton PA-C Unavailable [phone] Marquita Starkey MD Unavailable [phone] Roopa Almonte MD Unavailable [phone] Griffin Joshi MD Unavailable Rina Magallon RN Unavailable [phone] Paula Reza MD Primary Care Provider [phone] Griffin Joshi MD Unavailable Roopa Almonte MD Unavailable [phone] Basilio Morillo DO Unavailable Lydia Bernstein PA-C Unavailable Rosa Maria Love Unavailable Augustine Callaway MD Unavailable Paula Reza MD Unavailable Keerthi Miner APRN TAP DANCER Unavailable [phone] Herman, Shahida Cummings STEEL CONSTRUCTION WORKER TAP DANCER Unavailable Un available Porsha Michaels APRN TAP DANCER Unavailable Paula Reza MD Unavailable Herman, Shahida Cummings APRN TAP DANCER Unavailable Un available Daylin Ludwig Unavailable Laurel Velasquez MD Unavailable Daylin Ludwig Unavailable Paula Reza MD Unavailable Porsha Michaels APRN TAP DANCER Unavailable Laurel Velasquez MD Unavailable Herman, Shahida Cummings APRN TAP DANCER Unavailable Un available Marilin Montaño TAP DANCER Unavailable Esha Dewitt MD Unavailable [phone] Heather Mosquera MD Unavailable Paula Reza MD Unavailable Esha Dewitt MD Unavailable [phone] Valdo Escamilla PA-C Unavailable Nohelia Abarca PA-C Unavailable [phone] Heather Msoquera MD Unavailable Fawad York MD Unavailable Encounter Details Date Type Department Care Team (Late st Contact Info) Description 12/28/2020 [facility] Medical Advice [address] [phone] Carolynn Ramon RN Social History Tobacco Use Types Packs/Day [...] documented as of this encounter Care Teams Peoplesoft Administrator Relationship Specialty Start Date End Date Shahida Sutton APRN TAP DANCER PCP - General Nurse Practitioner 08/17/14 08/04/21 Paula Reza MD [address] [facility] 200 [place] [address] PCP - General Internal Medicine 08/05/21 Shahida Sutton, STEEL CONSTRUCTION WORKER TAP DANCER Assigned PCP 07/12/14 09/30/21 Carolynn Ramon RN Personal Advocate & Liaison (PAL) 12/17/18 08/07/21 Anabela Barakat APRN TAP DANCER 1700 [place] [address] Assigned Heart and Vascular Provider 08/15/20 08/05/21 Fawad York MD 909 [place] [address] Assigned Musculoskeletal Provider 12/05/20 02/05/21 Roopa Almonte MD [address] [facility] [address] [address] Endocrinology, Diabetes, and Metabolism 01/19/21 [place] [address] [address] Assigned Musculoskeletal Provider 02/06/21 09/16/21 Maryse Burton, PA-C 5200 [place] [address] Physician Follow Up Manager Dermatology 04/14/21 Marquita Starkey MD [address] [facility] 200 [place] [address] Internal Medicine 05/06/21 05/06/21 Roopa Almonte MD [address] [facility] 200 [place] [address] Hospitalist Endocrinology, Diabetes, and Metabolism 05/30/21 Griffin Joshi MD [address] [facility] [address] [place] [address] Cardiovascular Disease 07/25/21 Rina Magallon, RN Lead [employer] Medic 07/29/21 07/11/22 Griffin Joshi MD [address] [place] [address] Assigned Heart and Vascular Provider 08/06/21 10/07/21 Roopa Almonte MD [address] [facility] 200 [place], [place] [address] Assigned Endocrinology Provider 09/10/21 [place] [address] [facility] [place] [address] Assigned Musculoskeletal Provider 09/17/21 10/14/21 Lydia Bernstein PA-C [address] [facility] 150 [place] [address] Assigned PCP 10/01/21 10/21/21 Rosa Maria Love CHW Community Health Worker 10/06/21 07/11/22 [place] [address] [place] [facility] 300 [place] [address] Assigned Musculoskeletal Provider 10/15/21 04/26/23 Paula Reza MD [address] [place] [address] Assigned PCP 10/22/21 12/23/21 Keerthi Miner STEEL CONSTRUCTION WORKER TAP DANCER [address] [place] [address] Assigned Heart and Vascular Provider 10/08/21 02/10/22 Shahida Sutton STEEL CONSTRUCTION WORKER TAP DANCER Assigned PCP 12/24/21 03/24/22 Porsha Michaels STEEL CONSTRUCTION WORKER TAP DANCER [address] [address] Assigned Heart and Vascular Provider 02/11/22 05/12/22 Paula Reza MD [address] [place] [address] Assigned PCP 03/25/22 04/07/22 Shahida Sutton APRN TAP DANCER [address] [address] Assigned PCP 04/08/22 06/30/22 Daylin Ludwig, EP [facility] [address] [address] Cardiac Rehabilitation Therapist 05/16/23 Laurel Velasquez MD [address] [address] Assigned Heart and Vascular Provider 05/13/22 06/30/22 Daylin Ludwig, EP [facility] [address] [address] Cardiac Rehabilitation Therapist 06/08/22 06/09/23 Paula Reza MD [address] [place] [address] Assigned PCP 07/01/22 07/07/22 Porsha Michaels APRN TAP DANCER [address] [place] [address] Assigned Heart and Vascular Provider 07/01/22 07/07/22 Laurel Velasquez MD [address] [place] [address] Assigned Heart and Vascular Provider 07/08/22 08/04/22 Shahida Sutton APRN TAP DANCER Assigned PCP 07/08/22 09/08/22 Marilin Montaño, TAP DANCER [address] [place] [address] Assigned Heart and Vascular Provider 08/05/22 Esha Dewitt MD [address] [place] [address] 36 [place], [place] [address] Gastroenterology 09/06/22 Heather Mosquera MD [address] [place] [address] Internal Medicine 09/06/22 Paula Reza MD [address] [place] [address] Assigned PCP 09/09/22 01/05/23 Esha Dewitt MD 420 [facility] 36 [place], [place] [address] Assigned Gastroenterology Provider 09/23/22 Valdo Escamilla PA-C [address] [facility] [address] [place], [place] [address] Assigned Neuroscience Provider 09/30/22 Nohelia Abarca PA-C [address] [place], [place] [address] Physician Follow Up Manager Gastroenterology 10/03/22 Heather Mosquera MD [address] [facility] 150 [place], [place] [address] Assigned PCP 01/06/23 Fawad York MD [address] [place], [place] [address] Assigned Musculoskeletal Provider 04/27/23 06/25/23 documented as of this encounter
--- OUTSIDE RECORDS SUMMARY | 2023-09-18 13:50 | XMS_ITS | Encounter Summary ---
Author Organization [facility] Address [address] [place] [address] Care Team Providers Care Central Office Associate Name Role Phone Shahida Sutton APRN RADIATION PROTECTION ENGINEER Primary Care Provi ford Unavailable Shahida Sutton APRN RADIATION PROTECTION ENGINEER Unavailable Un available Carolynn Ramon RN Unavailable Augustine Callaway MD Unavailable Brady Lion MD Unavailable Un available Nima France-C Unavailable Camille Chandler PA-C Unavailable [phone] Anabela Barakat APRN RADIATION PROTECTION ENGINEER Unavailable Nima France PA-C Unavailable Basilio Morillo DO Unavailable Fawad York MD Unavailable [phone] Roopa Almonte MD Unavailable [phone] Augustine Callaway MD Unavailable Maryse Burton PA-C Unavailable Marquita Starkey MD Unavailable Roopa Almonte MD Unavailable Griffin Joshi MD Unavailable Rina Magallon RN Unavailable [phone] Paula Reza MD Primary Care Provider [phone] Griffin Joshi MD Unavailable Roopa Almonte MD Unavailable [phone] Basilio Morillo DO Unavailable Lydia Bernstein-C Unavailable Rosa Maria Love Unavailable [phone] Augustine Callaway MD Unavailable Paula Reza MD Unavailable Keerthi Miner APRN RADIATION PROTECTION ENGINEER Unavailable [phone] Herman, Shahida Cummings APRN RADIATION PROTECTION ENGINEER Unavailable Un available Porsha Michaels APRN RADIATION PROTECTION ENGINEER Unavailable [phone] Paula Reza MD Unavailable Shahida Sutton APRN RADIATION PROTECTION ENGINEER Unavailable Un available Daylin Ludwig Unavailable [phone] Laurel Velasquez MD Unavailable [phone] Daylin Ludwig Unavailable [phone] Paula Reza MD Unavailable Porsha Michaels APRN RADIATION PROTECTION ENGINEER Unavailable [phone] Laurel Velasquez MD Unavailable [phone] Shahida Sutton HAND WRAPPER OPERATOR RADIATION PROTECTION ENGINEER Unavailable Un available Marilin Montaño RADIATION PROTECTION ENGINEER Unavailable [phone] Esha Dewitt MD Unavailable [phone] EvelienHeather MD Unavailable [phone] Paula Reza MD Unavailable Esha Dewitt MD Unavailable [phone] Andi Valdo Desouza PA-C Unavailable Nohelia Abarca PA-C Unavailable [phone] Heather Mosquera MD Unavailable Fawad York MD Unavailable Reason for Visit * Reason Comments Medication Refill Encounter Details Date Type Department Care Team (Late st Contact Info) Description 03/31/[address] [address] Shahida Sutton APRN RADIATION PROTECTION ENGINEER Medication Refill Social History Tobacco Use Types Packs/Day Years Used Date Smoking Tobacco: Former Cigarettes Q uit: 12/09/2006 Cigars Smokeless Tobacco: Never Alcohol Use Standard Drinks/Week Comments Yes 0 (1 standard drink = 0.6 oz pur e alcohol) Very Occasionally PHQ-2 Answer Date Recorded PHQ-2 Score 2 03/12/2018 Sex and Gender Information Value Date Recorded Sex Assigned at Male 09/20/2020 8:37 AM CDT Gender Identity Male 09/20/2020 8:37 AM CDT Sexual Orientation Straight 09/20/2020 8: 37 AM CDT documented as of this encounter Miscellaneous Notes * Telephone Encounter - Paige Mena RN - 03/31/2020 11:32 AM INVENTORY ASSOCIATE AND DRIVER Routing refill request to provider for review/approval because: Drug not on the [facility] refill protocol Paige Mena RN NTORY ASSOCIATE AND DRIVER documented in this encounter Plan of Treatment Not on file documented as of this encounter Visit Diagnoses Diagnosis Other insomnia documented in this encounter Additional Health Concerns Infection Onset Date Last Indicated Resolved Time Rule Out COVID-19 01/05/2021 01/05/2021 01/06/2021 12:57 PM CDT ESBL 01/05/2021 01/05/2021 Rule Out COVID-19 06/30/2021 06/30/2021 07/01/2021 9:34 AM CDT Rule Out COVID-19 07/25/2021 07/25/2021 07/25/2021 8:02 PM CDT Assessment Noted Time PHQ-9 Depression Total Score: 7 08/13/19 1:22 PM CDT documented as of this encounter Care Teams Central Office Associate Relationship Specialty Start Date End Date Shahida Sutton APRN RADIATION PROTECTION ENGINEER PCP - General Nurse Practitioner 08/17/14 08/04/21 Paula Reza MD [address] [facility] [address] [place] [address] PCP - General Internal Medicine 08/05/21 Shahida Sutton APRN RADIATION PROTECTION ENGINEER Assigned PCP 07/12/14 09/30/21 Carolynn Ramon RN Personal Advocate & Liaison (PAL) 12/17/18 08/07/21 [place] [address] [place], [place] [address] Assigned Musculoskeletal Provider 12/26/19 08/21/20 Brady Lion MD Assigned Heart and Vascular Provider 12/26/19 08/14/20 Nima France PA-C [address] [place] [address] Assigned Surgical Provider 05/19/20 08/21/20 Camille Chandler PA-C [address] [place] [address] Assigned Neuroscience Provider 05/19/20 09/14/20 Anabela Barakat APRN RADIATION PROTECTION ENGINEER [address] [place] [address] Assigned Heart and Vascular Provider 08/15/20 08/05/21 Nima France PA-C [address] [facility] [address] [place] [address] Assigned Musculoskeletal Provider 08/22/20 11/13/20 [place] [address] [facility] [place], [place] [address] Assigned Musculoskeletal Provider 11/14/20 12/04/20 Fawad York MD [address] [place], [place] [address] Assigned Musculoskeletal Provider 12/05/20 02/05/21 Roopa Almonte MD [address] [employer] [facility] [address] [place] [address] Endocrinology, Diabetes, and Metabolism 01/19/21 [place] [address] [facility] [address] [place] [address] Assigned Musculoskeletal Provider 02/06/21 09/16/21 Maryse Burton PA-C [address] [place] [address] Physician Cable Armorer Operator Dermatology 04/14/21 Marquita Starkey MD [address] [facility] [address] [place] [address] Internal Medicine 05/06/21 05/06/21 Roopa Almonte MD [address] [place] [address] Hospitalist Endocrinology, Diabetes, and Metabolism 05/30/21 Griffin Joshi MD [address] [facility] [address] [place] [address] Cardiovascular Disease 07/25/21 Rina Magallon, RN Lead Emergency Medcl Emt 07/29/21 07/11/22 Griffin Joshi MD [address] [facility] [address] [place] [address] Assigned Heart and Vascular Provider 08/06/21 10/07/21 Roopa Almonte MD [address] [facility] [address] [place] [address] Assigned Endocrinology Provider 09/10/21 [place] [address] [facility] [place] [address] Assigned Musculoskeletal Provider 09/17/21 10/14/21 Lydia Bernstein PA-C [address] [facility] [address] [place] [address] Assigned PCP 10/01/21 10/21/21 Rosa Maria Love CHW Community Health Worker 10/06/21 07/11/22 [place] [address] [facility] [address] [place] [address] Assigned Musculoskeletal Provider 10/15/21 04/26/23 Paula Reza MD [address] [place] [address] Assigned PCP 10/22/21 12/23/21 Keerthi Miner APRN RADIATION PROTECTION ENGINEER [address] [place] [address] Assigned Heart and Vascular Provider 10/08/21 02/10/22 Shahida Sutton APRN RADIATION PROTECTION ENGINEER Assigned PCP 12/24/21 03/24/22 Porsha Michaels APRN RADIATION PROTECTION ENGINEER [address] [place] [address] Assigned Heart and Vascular Provider 02/11/22 05/12/22 Paula Reza MD [address] [place] [address] Assigned PCP 03/25/22 04/07/22 Shahida Sutton APRN RADIATION PROTECTION ENGINEER [address] [place] [address] Assigned PCP 04/08/22 06/30/22 Daylin Ludwig, MIKI [facility] [address] [place] [address] Cardiac Rehabilitation Therapist 05/16/23 Laurel Velasquez MD [address] [place] [address] Assigned Heart and Vascular Provider 05/13/22 06/30/22 Daylin Ludwig EP [facility] [address] [place] [address] Cardiac Rehabilitation Therapist 06/08/22 06/09/23 Paula Reza MD [address] [place], [place] [address] Assigned PCP 07/01/22 07/07/22 Porsha Michaels APRN RADIATION PROTECTION ENGINEER [address] [place] [address] Assigned Heart and Vascular Provider 07/01/22 07/07/22 Laurel Velasquez MD [address] [place] [address] Assigned Heart and Vascular Provider 07/08/22 08/04/22 Shahida Sutton, HAND WRAPPER OPERATOR RADIATION PROTECTION ENGINEER Assigned PCP 07/08/22 09/08/22 Marilin Montaño, RADIATION PROTECTION ENGINEER [address] [place] [address] Assigned Heart and Vascular Provider 08/05/22 Esha Dewitt MD [address] [place] [address] 36 [place], [place] [address] Gastroenterology 09/06/22 Heather Mosquera MD [address] [place] [address] Internal Medicine 09/06/22 Paula Reza MD [address] [place], [place] [address] Assigned PCP 09/09/22 01/05/23 Esha Dewitt MD [address] [facility] 36 [place] [address] Assigned Gastroenterology Provider 09/23/22 Valdo Escamilla PA-C [address] [facility] [address] [place] [address] Assigned Neuroscience Provider 09/30/22 Nohelia Abarca PA-C [address] [place] [address] Physician Cable Armorer Operator Gastroenterology 10/03/22 Heather Mosquera MD [address] [facility] 150 [place] [address] Assigned PCP 01/06/23 Fawad York MD [address] [place], [place] [address] Assigned Musculoskeletal Provider 04/27/23 06/25/23 documented as of this encounter
--- OUTSIDE RECORDS SUMMARY | 2023-09-18 13:50 | XMS_ITS | Encounter Summary ---
Author Organization [facility] Address [address] [place] [address] Care Team Providers Care Carbon Paper Interleafer Name Role Phone HermanShahida APRN LEATHER FINISHER Primary Care Provi ford Unavailable Shahida Sutton APRN LEATHER FINISHER Unavailable Un available Carolynn Ramon RN Unavailable [phone] Anabela Barakat APRN LEATHER FINISHER Unavailable Basilio Morillo DO Unavailable [phone] Fawad York MD Unavailable [phone] Roopa Almonte MD Unavailable [phone] Augustine Callaway MD Unavailable Maryse Burton PA-C Unavailable [phone] Marquita Starkey MD Unavailable [phone] Roopa Almonte MD Unavailable [phone] Griffin Joshi MD Unavailable Rina Magallon RN Unavailable [phone] Paula Reza MD Primary Care Provider [phone] Griffin Joshi MD Unavailable Roopa Almonte MD Unavailable [phone] IliaBasilio DO Unavailable [phone] Lydia Bernstein PA-C Unavailable KateRosa Maria RACHELL Unavailable [phone] Augustine Callaway MD Unavailable Paula Reza MD Unavailable Keerthi Miner APRN LEATHER FINISHER Unavailable [phone] Herman, Shahida Cummings APRN LEATHER FINISHER Unavailable Un available Porsha Michaels APRN LEATHER FINISHER Unavailable [phone] Paula Rzea MD Unavailable Herman, Shahida Cummings APRN LEATHER FINISHER Unavailable Un available Daylin Ludwig Unavailable [phone] Laurel Velasquez MD Unavailable [phone] FiDaylin sullivan EP Unavailable [phone] Paula Reza MD Unavailable Porsha Michaels APRN LEATHER FINISHER Unavailable [phone] Laurel Velasquez MD Unavailable Herman, Shahida Cummings APRN LEATHER FINISHER Unavailable Un available Marilin Montaño LEATHER FINISHER Unavailable [phone] Esha Dewitt MD Unavailable [phone] Heather Mosquera MD Unavailable [phone] Paula Reza MD Unavailable Esha Dewitt MD Unavailable [phone] Valdo Escamilla PA-C Unavailable [phone] Nohelia Abarca-C Unavailable [phone] Heather Mosquera MD Unavailable [phone] Fawad York MD Unavailable Reason for Visit * Reason Comments Medication Refill Encounter Details Date Type Department Care Team (Late st Contact Info) Description 11/17/[address] [address] Shahida Sutton APRN LEATHER FINISHER Medication Refill Social History Tobacco Use Types [...] have Coronavirus / COVID-19? No / Unsure 11/18/2020 4:26 PM CDT documented as of this encounter Miscellaneous Notes * Telephone Encounter - Shayla Callahan RN - 11/17/2020 12:48 PM CDT Do you want to send in more refills or does patient needs to come back? Shayla Callahan RN, BSN documented in this encounter Plan of Treatment Not on file documented as of this encounter Visit Diagnoses Diagnosis Hyperlipidemia LDL goal <100 Other and unspecified hyperlipidemia documented in this encounter Additional Health Concerns [...] documented as of this encounter Care Teams Carbon Paper Interleafer Relationship Specialty Start Date End Date Shahida Sutton APRN LEATHER FINISHER PCP - General Nurse Practitioner 08/17/14 08/04/21 Paula Reza MD [address] [place] [address] PCP - General Internal Medicine 08/05/21 Shahida Sutton APRN LEATHER FINISHER Assigned PCP 07/12/14 09/30/21 Carolynn Ramon RN Personal Advocate & Liaison (PAL) 12/17/18 08/07/21 Anabela Barakat APRN LEATHER FINISHER [address] [place] [address] Assigned Heart and Vascular Provider 08/15/20 08/05/21 [place] [address] [place] [address] Assigned Musculoskeletal Provider 11/14/20 12/04/20 Fawad York MD [address] [place] [address] Assigned Musculoskeletal Provider 12/05/20 02/05/21 Roopa Almonte MD [address] [place] [address] Endocrinology, Diabetes, and Metabolism 01/19/21 [place] [address] [place] [address] [place], [place] [address] Assigned Musculoskeletal Provider 02/06/21 09/16/21 Maryse Burton PA-C [address] [facility] [place] [address] Physician Frozen Pie Maker Dermatology 04/14/21 Marquita Starkey MD [address] [facility] 200 [place] [address] Internal Medicine 05/06/21 05/06/21 Roopa Almonte MD [address] [facility] 200 [place] [address] Hospitalist Endocrinology, Diabetes, and Metabolism 05/30/21 Griffin Joshi MD [address] [facility] [address] [place] [address] Cardiovascular Disease 07/25/21 Rina Magallon, RN Lead Firer Kiln 07/29/21 07/11/22 Griffin Joshi MD [address] [facility] [address] [place] [address] Assigned Heart and Vascular Provider 08/06/21 10/07/21 Roopa Almonte MD [address] [place], [place] [address] Assigned Endocrinology Provider 09/10/21 [place] [address] [facility] [place] [address] Assigned Musculoskeletal Provider 09/17/21 10/14/21 Lydia Bernstein PA-C [address] [place] [address] Assigned PCP 10/01/21 10/21/21 Rosa Maria Love CHW Community Health Worker 10/06/21 07/11/22 [place] [address] [place] [address] [place] [address] Assigned Musculoskeletal Provider 10/15/21 04/26/23 Paula Reza MD [address] [place] [address] Assigned PCP 10/22/21 12/23/21 Keerthi Miner APRN LEATHER FINISHER [address] [place] [address] Assigned Heart and Vascular Provider 10/08/21 02/10/22 Shahida Sutton APRN LEATHER FINISHER Assigned PCP 12/24/21 03/24/22 Porsha Michaels APRN LEATHER FINISHER [address] [place] [address] Assigned Heart and Vascular Provider 02/11/22 05/12/22 Paula Reza MD [address] [place] [address] Assigned PCP 03/25/22 04/07/22 Shahida Sutton APRN LEATHER FINISHER [address] [place] [address] Assigned PCP 04/08/22 06/30/22 Daylin Ludwig, EP [facility] [address] [place] [address] Cardiac Rehabilitation Therapist 05/16/23 Laurel Velasquez MD [address] [place] [address] Assigned Heart and Vascular Provider 05/13/22 06/30/22 Daylin Ludwig, MIKI [facility] [address] [place] [address] Cardiac Rehabilitation Therapist 06/08/22 06/09/23 Paula Reza MD [address] [facility] [address] [place] [address] Assigned PCP 07/01/22 07/07/22 Porsha Michaels APRN LEATHER FINISHER [address] [place] [address] Assigned Heart and Vascular Provider 07/01/22 07/07/22 Laurel Velasquez MD [address] [place] [address] Assigned Heart and Vascular Provider 07/08/22 08/04/22 Shahida Sutton APRN LEATHER FINISHER Assigned PCP 07/08/22 09/08/22 Marilin Montaño, LEATHER FINISHER [address] [place] [address] Assigned Heart and Vascular Provider 08/05/22 Esha Dewitt MD [address] [facility] [address] [place] [address] Gastroenterology 09/06/22 Heather Mosquera MD [address] [place] [address] Internal Medicine 09/06/22 Paula Reza MD [address] [place], [place] [address] Assigned PCP 09/09/22 01/05/23 Esha Dewitt MD [address] [address] Assigned Gastroenterology Provider 09/23/22 Valdo Escamilla PA-C [address] [facility] [address] [place], [place] [address] Assigned Neuroscience Provider 09/30/22 Nohelia Abarca PA-C [address] [place], [place] [address] Physician Frozen Pie Maker Gastroenterology 10/03/22 Heather Mosquera MD [address] [place] [address] Assigned PCP 01/06/23 Fawad York MD [address] [place], [place] [address] Assigned Musculoskeletal Provider 04/27/23 06/25/23 documented as of this encounter
--- OUTSIDE RECORDS SUMMARY | 2023-09-18 13:50 | XMS_ITS | Encounter Summary ---
Author Organization [facility] Address [address] [place] [address] Care Team Providers Care Sap Integration Architect Name Role Phone HermanShahida huerta APRN BUSINESS SOLUTIONS DIRECTOR Primary Care Provi ford Unavailable Shahida Sutton APRN BUSINESS SOLUTIONS DIRECTOR Unavailable Un available Carolynn Ramon RN Unavailable [phone] Anabela Barakat APRN BUSINESS SOLUTIONS DIRECTOR Unavailable Nima France PA-C Unavailable [phone] Basilio Morillo DO Unavailable [phone] Fawad York MD Unavailable Roopa Almonte MD Unavailable Augustine Callaway MD Unavailable Maryse Burton PA-C Unavailable [phone] Marquita Starkey MD Unavailable Roopa Almonte MD Unavailable Griffin Joshi MD Unavailable Rina Magallon RN Unavailable Paula Reza MD Primary Care Provider [phone] Griffin Joshi MD Unavailable Roopa Almonte MD Unavailable Ilia Basilio Naik Unavailable Lydia Bernstein PA-C Unavailable Kate Rosa Maria CHW Unavailable Augustine Callaway MD Unavailable Paula Reza MD Unavailable Keerthi Miner APRN BUSINESS SOLUTIONS DIRECTOR Unavailable Herman, Shahida Cummings APRN BUSINESS SOLUTIONS DIRECTOR Unavailable Un available Porsha Michaels APRN BUSINESS SOLUTIONS DIRECTOR Unavailable [phone] Paula Reza MD Unavailable Herman, Shahida Cummings APRN BUSINESS SOLUTIONS DIRECTOR Unavailable Un available Daylin Ludwig Unavailable [phone] Laurel Velasquez MD Unavailable Daylin Ludwig Unavailable [phone] Paula Reza MD Unavailable Porsha Michaels APRN BUSINESS SOLUTIONS DIRECTOR Unavailable [phone] Laurel Velasquez MD Unavailable Herman, Shahida Cummings APRN BUSINESS SOLUTIONS DIRECTOR Unavailable Un available Marilin Montaño BUSINESS SOLUTIONS DIRECTOR Unavailable [phone] Esha Dewitt MD Unavailable [phone] Heather Mosquera MD Unavailable Paula Reza MD Unavailable Esha Dewitt MD Unavailable [phone] Valdo Escamilla PA-C Unavailable [phone] Nohelia Abarca PA-C Unavailable [phone] Heather Mosquera MD Unavailable Fawad York MD Unavailable Encounter Details Date Type Department Care Team (Late st Contact Info) Description 09/23/2020 MyC Medical Advice [address] [address] Shahida Sutton, IMPOSER BUSINESS SOLUTIONS DIRECTOR Social History Tobacco Use Types Packs/Day Years Used Date Smoking Tobacco: Former Cigarettes Q uit: 12/09/2006 Cigars Smokeless Tobacco: Never Alcohol Use Standard Drinks/Week Comments Yes 0 (1 standard drink = 0.6 oz pur e alcohol) Very Occasionally PHQ-2 Answer Date Recorded PHQ-2 Score 2 09/20/2020 Sex and Gender Information Value Date Recorded Sex Assigned at Male 09/20/2020 8:37 AM CDT Gender Identity Male 09/20/2020 8:37 AM CDT Sexual Orientation Straight 09/20/2020 8: 37 AM CDT documented as of this encounter Miscellaneous Notes * Telephone Encounter - Carolynn Ramon RN - 09/24/2020 7:47 AM CDT RN placed call to [facility] to discuss ##6 on FMLA paperwork - awaiting call back Letter written to employer advising that pcp is out of the office until at which time we will assist with changes requested on FMLA paperwork Information from my chart - To the Attention of Carolynn: ?? Here is what the social insurance administrator is requesting: < < You must provide the following information no late than September 30, 2020, unless it is not practicableunder the particular circumstances despite your diligent good- ruthie efforts, or your leave may be denied. ?? Specifically, we are requesting the treating physician to clarify and/or complete the information needed below to make the certification complete and sufficient: ? Because it was indicated that additional treatments/appointments were needed, please have your treating physician complete: o #6- please have your treating physician provide their best medical estimate on the beginning and end date to the treatments/appointments o #6- please have your treating physician provide their best medical estimate of the duration of the treatments/appointments EX: 3 appointments per month lasting 2-3 hours per appointment o Please have treating physician initial and date changes Carolynn Ramon Registered Nurse, ULISES (Patient Advocate Liason) [facility] [phone] documented in this encounter Plan of Treatment [...] Assessment Noted Time PHQ-9 Depression Total Score: 6 06/06/19 21 7:02 AM CDT documented as of this encounter Care Teams Sap Integration Architect Relationship Specialty Start Date End Date Shahida Sutton APRN BUSINESS SOLUTIONS DIRECTOR PCP - General Nurse Practitioner 08/17/14 08/04/21 Paula Reza MD [facility] [address] [address] PCP - General Internal Medicine 08/05/21 Shahida Sutton APRN BUSINESS SOLUTIONS DIRECTOR Assigned PCP 07/12/14 09/30/21 Carolynn Ramon RN Personal Advocate & Liaison (PAL) 12/17/18 08/07/21 Anabela Barakat APRN BUSINESS SOLUTIONS DIRECTOR [address] [place] [address] Assigned Heart and Vascular Provider 08/15/20 08/05/21 Nima France PA-C [address] [place] [address] Assigned Musculoskeletal Provider 08/22/20 11/13/20 [place] [address] [facility] [place] [address] Assigned Musculoskeletal Provider 11/14/20 12/04/20 Fawad York MD [address] [place], [place] [address] Assigned Musculoskeletal Provider 12/05/20 02/05/21 Roopa Almonte MD [address] [place] [address] Endocrinology, Diabetes, and Metabolism 01/19/21 [place] [address] [facility] [address] [place] [address] Assigned Musculoskeletal Provider 02/06/21 09/16/21 Maryse Burton, PA-C [address] [place] [address] Physician Care Provider Dermatology 04/14/21 Marquita Starkey MD [address] [place] [address] Internal Medicine 05/06/21 05/06/21 Roopa Almonte MD [address] [place] [address] Hospitalist Endocrinology, Diabetes, and Metabolism 05/30/21 Griffin Joshi MD [address] [place] [address] Cardiovascular Disease 07/25/21 Rina Magallon, RN Lead Road Cutter 07/29/21 07/11/22 Griffin Joshi MD [address] [facility] [address] [place] [address] Assigned Heart and Vascular Provider 08/06/21 10/07/21 Roopa Almonte MD [address] [facility] [address] [place] [address] Assigned Endocrinology Provider 09/10/21 [place] [address] [facility] [place] [id number] Assigned Musculoskeletal Provider 09/17/21 10/14/21 Lydia Bernstein PA-C [address] [facility] [address] [place] [address] Assigned PCP 10/01/21 10/21/21 Rosa Maria Love CHW Community Health Worker 10/06/21 07/11/22 [place] [address] [facility] [address] [place] [address] Assigned Musculoskeletal Provider 10/15/21 04/26/23 Paula Reza MD [address] [facility] [address] [place] [address] Assigned PCP 10/22/21 12/23/21 Keerthi Miner APRN BUSINESS SOLUTIONS DIRECTOR [address] [place] [address] Assigned Heart and Vascular Provider 10/08/21 02/10/22 Shahida Sutton APRN BUSINESS SOLUTIONS DIRECTOR Assigned PCP 12/24/21 03/24/22 Porsha Michaels APRN BUSINESS SOLUTIONS DIRECTOR [address] [place] [address] Assigned Heart and Vascular Provider 02/11/22 05/12/22 Paula Reza MD [address] [facility] [address] [place] [address] Assigned PCP 03/25/22 04/07/22 Shahida Sutton APRN BUSINESS SOLUTIONS DIRECTOR [address] [place] [address] Assigned PCP 04/08/22 06/30/22 Daylin Ludwig EP [facility] [address] [place] [address] Cardiac Rehabilitation Therapist 05/16/23 Laurel Velasquez MD [address] [place] [address] Assigned Heart and Vascular Provider 05/13/22 06/30/22 Dalyin Ludwig EP [facility] [address] [place] [address] Cardiac Rehabilitation Therapist 06/08/22 06/09/23 Paula Reza MD [address] [place] [address] Assigned PCP 07/01/22 07/07/22 Porsha Michaels APRN BUSINESS SOLUTIONS DIRECTOR [address] [place] [address] Assigned Heart and Vascular Provider 07/01/22 07/07/22 Laurel Velasquez MD [address] [place] [address] Assigned Heart and Vascular Provider 07/08/22 08/04/22 Shahida Sutton APRN BUSINESS SOLUTIONS DIRECTOR Assigned PCP 07/08/22 09/08/22 Marilin Montaño BUSINESS SOLUTIONS DIRECTOR [address] [place] [address] Assigned Heart and Vascular Provider 08/05/22 Esha Dewitt MD [address] [place] [address] Gastroenterology 09/06/22 Heather Mosquera MD [address] [place] [address] Internal Medicine 09/06/22 Paula Reza MD [address] [place] [address] Assigned PCP 09/09/22 01/05/23 Esha Dewitt MD [address] [place] [address] Assigned Gastroenterology Provider 09/23/22 Valdo Escamilla PA-C [address] [facility] [address] [place], [place] [id number] Assigned Neuroscience Provider 09/30/22 Nohelia Abarca PA-C [address] [place], [place] [id number] Physician Care Provider Gastroenterology 10/03/22 Heather Mosquera MD [address] [facility] 150 [place], [place] [address] Assigned PCP 01/06/23 Fawad York MD [address] [place], [place] [id number] Assigned Musculoskeletal Provider 04/27/23 06/25/23 documented as of this encounter
--- OUTSIDE RECORDS SUMMARY | 2023-09-18 13:50 | XMS_ITS | Encounter Summary ---
Author Organization [facility] Address [address] [place] [address] Care Team Providers Care Tetryl Screen Operator Name Role Phone Shahida Sutton APRN RELISH MAKER Primary Care Provi ford Unavailable Shahida Sutton APRN RELISH MAKER Unavailable Un available Carolynn Ramon RN Unavailable [phone] Augustine Callaway MD Unavailable Brady Lion MD Unavailable Un available Nima France-C Unavailable Camille Chandler PA-C Unavailable [phone] Anabela Barakat APRN RELISH MAKER Unavailable Nima France PA-C Unavailable Basilio Morillo DO Unavailable [phone] Fawad York MD Unavailable Roopa Almonte MD Unavailable Augustine Callaway MD Unavailable Maryse Burton PA-C Unavailable Marquita Starkey MD Unavailable Roopa Almonte MD Unavailable Griffin Joshi MD Unavailable Rina Magallon RN Unavailable [phone] Paula Reza MD Primary Care Provider [phone] Griffin Joshi MD Unavailable Roopa Almonte MD Unavailable [phone] Basilio Morillo DO Unavailable Lydia Bernstein-C Unavailable Rosa Maria Love Unavailable [phone] Augustine Callaway MD Unavailable Paula Reza MD Unavailable Keerthi Miner APRN RELISH MAKER Unavailable [phone] Herman, Shahida Cummings APRN RELISH MAKER Unavailable Un available Porsha Michaels APRN RELISH MAKER Unavailable [phone] Paula Reza MD Unavailable Shahida Sutton APRN RELISH MAKER Unavailable Un available Daylin Ludwig Unavailable [phone] Laurel Velasquez MD Unavailable [phone] Daylin Ludwig Unavailable [phone] Paula Reza MD Unavailable Porsha Michaels APRN RELISH MAKER Unavailable [phone] Laurel Velasquez MD Unavailable [phone] Shahida Sutton TRUCK DOCK MATERIAL MOVER RELISH MAKER Unavailable Un available Marilin Montaño RELISH MAKER Unavailable [phone] Esha Dewitt MD Unavailable [phone] EvelineHeather MD Unavailable [phone] Paula Reza MD Unavailable Esha Dewitt MD Unavailable [phone] Valdo Escamilla PA-C Unavailable Nohelia Abarca PA-C Unavailable [phone] Heather Mosquera MD Unavailable [phone] Fawad York MD Unavailable [phone] Encounter Details Date Type Department Care Team (Late st Contact Info) Description 05/28/2020 Documentation Only INTERFACED REPORT Unknown, Provider Social History Tobacco Use Types Packs/Day Years [...] have Coronavirus / COVID-19? No / Unsure 05/03/2020 9:33 AM TRUST MANAGER documented as of this encounter Plan of [...] Time PHQ-9 Depression Total Score: 7 08/13/19 20 1:22 PM CDT documented as of this encounter Care Teams Tetryl Screen Operator Relationship Specialty Start Date End Date Shahida Sutton APRN RELISH MAKER PCP - General Nurse Practitioner 6/15/15 6/2/22 Paula Reza MD [address] [facility] [address] [place] [address] PCP - General Internal Medicine 08/05/21 Shahida Sutton APRN RELISH MAKER Assigned PCP 07/12/14 09/30/21 Carolynn Ramon RN Personal Advocate & Liaison (PAL) 12/17/18 08/07/21 [place] [address] [place] [address] Assigned Musculoskeletal Provider 12/26/19 08/21/20 Brady Lion MD Assigned Heart and Vascular Provider 12/26/19 08/14/20 Nima France PA-C [address] [place] [address] Assigned Surgical Provider 05/19/20 08/21/20 Camille Chandler PA-C [address] [facility] S [facility] [address] [place] [address] Assigned Neuroscience Provider 05/19/20 09/14/20 Anabela Barakat APRN RELISH MAKER [address] [place] [address] Assigned Heart and Vascular Provider 08/15/20 08/05/21 Nima France PA-C [address] [place] [address] Assigned Musculoskeletal Provider 08/22/20 11/13/20 [place] [address] [facility] [place] [address] Assigned Musculoskeletal Provider 11/14/20 12/04/20 Fawad York MD [address] [place] [address] Assigned Musculoskeletal Provider 12/05/20 02/05/21 Roopa Almonte MD [address] [facility] [address] [place] [address] Endocrinology, Diabetes, and Metabolism 01/19/21 [place] [address] [facility] [address] [place] [address] Assigned Musculoskeletal Provider 02/06/21 09/16/21 Maryse Burton, PA-C [address] [place] [address] Physician It Trainee Dermatology 04/14/21 Marquita Starkey MD [address] [facility] [address] [place] [address] Internal Medicine 05/06/21 05/06/21 Roopa Almonte MD [address] [facility] [address] [place] [address] Hospitalist Endocrinology, Diabetes, and Metabolism 05/30/21 Griffin Joshi MD [address] [facility] [address] [place] [address] Cardiovascular Disease 07/25/21 Rina Magallon, RN Lead Bell Spinner 07/29/21 07/11/22 Griffin Joshi MD [address] [place] [address] Assigned Heart and Vascular Provider 08/06/21 10/07/21 Roopa Almonte MD [address] [facility] [address] [place], [place] [address] Assigned Endocrinology Provider 09/10/21 [place] [address] [facility] [place] [address] Assigned Musculoskeletal Provider 09/17/21 10/14/21 Lydia Bernstein PA-C [address] [place] [address] Assigned PCP 10/01/21 10/21/21 Rosa Maria Love Cristina Community Health Worker 10/06/21 07/11/22 [place] [address] [address] [facility] [address] [place] [address] Assigned Musculoskeletal Provider 10/15/21 04/26/23 Paula Reza MD [address] [facility] [address] [place] [address] Assigned PCP 10/22/21 12/23/21 Keerthi Miner APRN RELISH MAKER [address] [place] [address] Assigned Heart and Vascular Provider 10/08/21 02/10/22 Shahida Sutton APRN RELISH MAKER Assigned PCP 12/24/21 03/24/22 Porsha Michaels APRN RELISH MAKER [address] [place] [address] Assigned Heart and Vascular Provider 02/11/22 05/12/22 Paula Reza MD [address] [place] [address] Assigned PCP 03/25/22 04/07/22 Shahida Sutton APRN RELISH MAKER [address] [place] [address] Assigned PCP 04/08/22 06/30/22 Daylin Ludwig, EP [facility] [address] [place] [address] Cardiac Rehabilitation Therapist 05/16/23 Laurel Velasquez MD [address] [place] [address] Assigned Heart and Vascular Provider 05/13/22 06/30/22 Daylin Ludwig, EP [facility] [address] [place] [address] Cardiac Rehabilitation Therapist 06/08/22 06/09/23 Paula Reza MD [address] [place], [place] [address] Assigned PCP 07/01/22 07/07/22 Porsha Michaels APRN RELISH MAKER [address] [place] [address] Assigned Heart and Vascular Provider 07/01/22 07/07/22 Laurel Velasquez MD [address] [place] [address] Assigned Heart and Vascular Provider 07/08/22 08/04/22 Shahida Sutton APRN RELISH MAKER Assigned PCP 07/08/22 09/08/22 Marilin Montaño, RELISH MAKER [address] [place] [address] Assigned Heart and Vascular Provider 08/05/22 Esha Dewitt MD [address] [address] Gastroenterology 09/06/22 Heather Mosquera MD [address] [place] [address] Internal Medicine 09/06/22 Paula Reza MD [address] [facility] [address] [place], [place] [address] Assigned PCP 09/09/22 01/05/23 Esha Dewitt MD 420 [facility] 36 [place] [address] Assigned Gastroenterology Provider 09/23/22 Valdo Escamilla PA-C [address] [facility] [address] [place] [address] Assigned Neuroscience Provider 09/30/22 Nohelia Abarca PA-C [address] [facility] [place] [place] [address] Physician It Trainee Gastroenterology 10/03/22 Heather Mosquera MD [address] [place] [address] Assigned PCP 01/06/23 Fawad York MD [address] [place], [place] [address] Assigned Musculoskeletal Provider 04/27/23 06/25/23 documented as of this encounter
--- OUTSIDE RECORDS SUMMARY | 2023-09-18 13:50 | XMS_ITS | Encounter Summary ---
Author Organization [facility] Address [address] [place] [address] Care Team Providers Care Camp Guard Name Role Phone Shahida Sutton APRN DIRECTOR OF PARKS AND RECREATION Primary Care Provi ford Unavailable Shahida Sutton APRN DIRECTOR OF PARKS AND RECREATION Unavailable Un available Carolynn Ramon RN Unavailable Augustine Callaway MD Unavailable Brady Lion MD Unavailable Un available Nima France-C Unavailable Camille Chandler PA-C Unavailable [phone] Anabela Barakat APRN DIRECTOR OF PARKS AND RECREATION Unavailable Nima France PA-C Unavailable Basilio Morillo DO Unavailable Fawad York MD Unavailable [phone] Roopa Almonte MD Unavailable Augustine Callaway MD Unavailable Maryse Burton PA-C Unavailable [phone] Marquita Starkey MD Unavailable Roopa Almonte MD Unavailable Griffin Joshi MD Unavailable Rina Magallon RN Unavailable [phone] Paula Reza MD Primary Care Provider [phone] Griffin Joshi MD Unavailable Ropoa Almonte MD Unavailable [phone] Basilio Morillo DO Unavailable Lydia Bernstein-C Unavailable Rosa Maria Love Unavailable [phone] Augustine Callaway MD Unavailable Paula Reza MD Unavailable Keerthi Miner APRN DIRECTOR OF PARKS AND RECREATION Unavailable [phone] Herman, Shahida Cummings APRN DIRECTOR OF PARKS AND RECREATION Unavailable Un available Porsha Michaels APRN DIRECTOR OF PARKS AND RECREATION Unavailable [phone] Paula Reza MD Unavailable Shahida Sutton APRN DIRECTOR OF PARKS AND RECREATION Unavailable Un available Daylin Ludwig Unavailable [phone] Laurel Velasquez MD Unavailable [phone] Daylin Ludwig Unavailable [phone] Paula Reza MD Unavailable Porsha Michaels APRN DIRECTOR OF PARKS AND RECREATION Unavailable [phone] Laurel Velasquez MD Unavailable [phone] Shahida Sutton LAY OUT CARPENTER DIRECTOR OF PARKS AND RECREATION Unavailable Un available Marilin Montaño DIRECTOR OF PARKS AND RECREATION Unavailable [phone] Esha Dewitt MD Unavailable [phone] EvelineHeather MD Unavailable [phone] Paula Reza MD Unavailable Esha Dewitt MD Unavailable [phone] Valdo Escamilla PA-C Unavailable Nohelia Abarca PA-C Unavailable [phone] Heather Mosquera MD Unavailable [phone] Fawad York MD Unavailable [phone] Encounter Details Date Type Department Care Team (Late st Contact Info) Description 06/29/2020 MyC Medical Advice [address] [id number] Hiral Curran, LENS BLOCKER Social History Tobacco Use Types Packs/Day Years Used Date Smoking Tobacco: Former Cigarettes Q uit: 12/09/2006 Cigars Smokeless Tobacco: Never Alcohol Use Standard Drinks/Week Comments Yes 0 (1 standard drink = 0.6 oz pur e alcohol) Very Occasionally PHQ-2 Answer Date Recorded PHQ-2 Score 2 06/04/2020 Sex and Gender Information Value Date Recorded Sex Assigned at Male 09/20/2020 8:37 AM CDT Gender Identity Male 09/20/2020 8:37 AM CDT Sexual Orientation Straight 09/20/2020 8: 37 AM CDT COVID-19 Exposure Response Date Recorded In the last month, have you been in contact with someone who was confirmed or suspected to have Coronavirus / COVID-19? No / Unsure 06/08/2020 11:41 AM CDT documented as of this encounter [...] documented as of this encounter Care Teams Camp Guard Relationship Specialty Start Date End Date Shahida Sutton APRN DIRECTOR OF PARKS AND RECREATION PCP - General Nurse Practitioner 08/17/14 08/04/21 Paula Reza MD [address] [facility] [address] [place] [address] PCP - General Internal Medicine 08/05/21 Shahida Sutton APRN DIRECTOR OF PARKS AND RECREATION Assigned PCP 07/12/14 09/30/21 Carolynn Ramon, KASIE Personal Advocate & Liaison (PAL) 12/17/18 08/07/21 [place] [address] [facility] [address] [place] [address] Assigned Musculoskeletal Provider 12/26/19 08/21/20 Brady Lion MD Assigned Heart and Vascular Provider 12/26/19 08/14/20 Nima France PA-C [address] [facility] [address] [place] [address] Assigned Surgical Provider 05/19/20 08/21/20 Camille Chandler PA-C [address] [facility] [address] [place] [address] Assigned Neuroscience Provider 05/19/20 09/14/20 Anabela Barakat APRN DIRECTOR OF PARKS AND RECREATION [address] [place] [address] Assigned Heart and Vascular Provider 08/15/20 08/05/21 Nima France PA-C [address] [facility] [address] [place] [address] Assigned Musculoskeletal Provider 08/22/20 11/13/20 [place] [address] [facility] [place] [address] Assigned Musculoskeletal Provider 11/14/20 12/04/20 Fawad York MD [address] [place], [place] [address] Assigned Musculoskeletal Provider 12/05/20 02/05/21 Roopa Almonte MD [address] [facility] [address] [place] [address] Endocrinology, Diabetes, and Metabolism 01/19/21 [place] [address] [facility] [address] [place] [address] Assigned Musculoskeletal Provider 02/06/21 09/16/21 Maryse Burton PA-C [address] [place] [address] Physician Hand Bunch Maker Dermatology 04/14/21 Marquita Starkey MD [address] [facility] [address] [place] [address] Internal Medicine 05/06/21 05/06/21 Roopa Almonte MD [address] [place] [address] Hospitalist Endocrinology, Diabetes, and Metabolism 05/30/21 Griffin Joshi MD [address] [facility] [address] [place] [address] Cardiovascular Disease 07/25/21 Rina Magallon, RN Lead Computer Analyst Supervisor 07/29/21 07/11/22 Griffin Joshi MD [address] [facility] [facility] [address] [place] [address] Assigned Heart and Vascular Provider 08/06/21 10/07/21 Roopa Almonte MD [address] [address] [place] [address] Assigned Endocrinology Provider 09/10/21 [place] [address] [facility] [place] [address] Assigned Musculoskeletal Provider 09/17/21 10/14/21 Lydia Bernstein PA-C [address] [facility] [facility] [address] [place] [address] Assigned PCP 10/01/21 10/21/21 Rosa Maria Love CHW Community Health Worker 10/06/21 07/11/22 [place] [address] [place] [address] [place] [address] Assigned Musculoskeletal Provider 10/15/21 04/26/23 Paula Reza MD [address] [facility] [address] [place], [place] [address] Assigned PCP 10/22/21 12/23/21 Keerthi Miner LAY OUT CARPENTER DIRECTOR OF PARKS AND RECREATION [address] [place], [place] [address] Assigned Heart and Vascular Provider 10/08/21 02/10/22 Shahida Sutton LAY OUT CARPENTER DIRECTOR OF PARKS AND RECREATION Assigned PCP 12/24/21 03/24/22 Porsha Michaels LAY OUT CARPENTER DIRECTOR OF PARKS AND RECREATION [address] [place] [address] Assigned Heart and Vascular Provider 02/11/22 05/12/22 Paula Reza MD [address] [facility] [address] [place] [address] Assigned PCP 03/25/22 04/07/22 Shahida Sutton APRN DIRECTOR OF PARKS AND RECREATION [address] [place] [address] Assigned PCP 04/08/22 06/30/22 Daylin Ludwig, [facility] [address] [place] [address] Cardiac Rehabilitation Therapist 05/16/23 Laurel Velasquez MD [address] [place] [address] Assigned Heart and Vascular Provider 05/13/22 06/30/22 Daylin Ludwig, [facility] [address] [place] [address] Cardiac Rehabilitation Therapist 06/08/22 06/09/23 Paula Reza MD [address] [place], [place] [address] Assigned PCP 07/01/22 07/07/22 Porsha Michaels APRN DIRECTOR OF PARKS AND RECREATION [address] [place] [address] Assigned Heart and Vascular Provider 07/01/22 07/07/22 Laurel Velasquez MD [address] [place], [place] [address] Assigned Heart and Vascular Provider 07/08/22 08/04/22 Shahida Sutton APRN DIRECTOR OF PARKS AND RECREATION Assigned PCP 07/08/22 09/08/22 Marilin Montaño DIRECTOR OF PARKS AND RECREATION [address] [place] [address] Assigned Heart and Vascular Provider 08/05/22 Esha Dewitt MD [address] [place] [address] Gastroenterology 09/06/22 Heather Mosquera MD [address] [place] [address] Internal Medicine 09/06/22 Paula Reza MD [address] [place] [address] Assigned PCP 09/09/22 01/05/23 Esha Dewitt MD [address] [place] [address] Assigned Gastroenterology Provider 09/23/22 Valdo Escamilla PA-C [address] [facility] [address] [place] [address] Assigned Neuroscience Provider 09/30/22 Nohelia Abarca PA-C [address] [place] [address] Physician Hand Bunch Maker Gastroenterology 10/03/22 Heather Mosquera MD [address] [facility] [address] [place] [address] Assigned PCP 01/06/23 Fawad York MD [address] [place], [place] [address] Assigned Musculoskeletal Provider 04/27/23 06/25/23 documented as of this encounter
--- OUTSIDE RECORDS SUMMARY | 2023-09-18 13:50 | XMS_ITS | Encounter Summary ---
Author Organization [facility] Address [address] [place] [address] Care Team Providers Care Automotive Tire Tester Name Role Phone HermanShahida huerta APRN LEAD CARGO MOVER Primary Care Provi ford Unavailable Shahida Sutton APRN LEAD CARGO MOVER Unavailable Un available Carolynn Ramon RN Unavailable [phone] Anabela Barakat APRN LEAD CARGO MOVER Unavailable Nima France PA-C Unavailable [phone] Basilio Morillo DO Unavailable Fawad York MD Unavailable Roopa Almonte MD Unavailable Augustine Callaway MD Unavailable Maryse Burton PA-C Unavailable [phone] Marquita Starkey MD Unavailable Roopa Almonte MD Unavailable Griffin Joshi MD Unavailable Rina Magallon RN Unavailable Paula Reza MD Primary Care Provider Griffin Joshi MD Unavailable Roopa Almonte MD Unavailable Ilia Basilio Naik Unavailable Lydia Bernstein PA-C Unavailable Kate Rosa Maria CHW Unavailable Augustine Callaway MD Unavailable Paula Reza MD Unavailable Keerthi Miner APRN LEAD CARGO MOVER Unavailable Herman, Shahida Cummings APRN LEAD CARGO MOVER Unavailable Un available Porsha Michaels APRN LEAD CARGO MOVER Unavailable [phone] Paula Reza MD Unavailable Herman, Shahida Cummings APRN LEAD CARGO MOVER Unavailable Un available Daylin Ludwig Unavailable [phone] Laurel Velasquez MD Unavailable Daylin Ludwig Unavailable [phone] Paula Reza MD Unavailable Porsha Michaels APRN LEAD CARGO MOVER Unavailable [phone] Laurel Velasquez MD Unavailable Herman, Shahida Cummings APRN LEAD CARGO MOVER Unavailable Un available Marilin oMntaño LEAD CARGO MOVER Unavailable [phone] Esha Dewitt MD Unavailable [phone] Heather Mosquera MD Unavailable Paula Reza MD Unavailable Esha Dewitt MD Unavailable [phone] Valdo Escamilla PA-C Unavailable [phone] Nohelia Abarca PA-C Unavailable [phone] Heather Mosquera MD Unavailable Fawad York MD [facility] [phone] Encounter Details Date Type Department Care Team (Late st Contact Info) Description 09/28/2020 MyC Medical Advice [address] [phone] Carolynn Ramon, KASIE Social History Tobacco Use Types Packs/Day [...] documented as of this encounter Care Teams Automotive Tire Tester Relationship Specialty Start Date End Date Shahida Sutton APRN LEAD CARGO MOVER PCP - General Nurse Practitioner 08/17/14 08/04/21 Paula Reza MD [address] [facility] [address] [place] [address] PCP - General Internal Medicine 08/05/21 Shahida Sutton, [facility] [employer] [employer] LEAD CARGO MOVER Assigned PCP 07/12/14 09/30/21 Carolynn Ramon, KASIE Personal Advocate & Liaison (PAL) 12/17/18 08/07/21 Anabela Barakat, [facility] [facility] [employer] LEAD CARGO MOVER [address] [place] [address] Assigned Heart and Vascular Provider 08/15/20 08/05/21 Nima France PA-C [address] [facility] [address] [place] [address] Assigned Musculoskeletal Provider 08/22/20 11/13/20 [place] [address] [place] [address] Assigned Musculoskeletal Provider 11/14/20 12/04/20 Fawad York MD [address] [place], [place] [address] Assigned Musculoskeletal Provider 12/05/20 02/05/21 Roopa Almonte MD [address] [facility] [address] [place] [address] Endocrinology, Diabetes, and Metabolism 01/19/21 [place] [address] [facility] [address] [place] [address] Assigned Musculoskeletal Provider 02/06/21 09/16/21 Maryse Burton PA-C [address] [place] [address] Physician Wheel Filler Dermatology 04/14/21 Marquita Starkey MD [address] [facility] [address] [place] [address] Internal Medicine 05/06/21 05/06/21 Roopa Almonte MD [address] [facility] [address] [place] [address] Hospitalist Endocrinology, Diabetes, and Metabolism 05/30/21 Griffin Joshi MD [address] [place] [address] Cardiovascular Disease 07/25/21 Rina Maagllon RN Lead Billiard Table Mechanic 07/29/21 07/11/22 Griffin Joshi MD [address] [place] [address] Assigned Heart and Vascular Provider 08/06/21 10/07/21 Roopa Almonte MD [address] [facility] [address] [place], [place] [address] Assigned Endocrinology Provider 09/10/21 [place] [address] [facility] [place] [address] Assigned Musculoskeletal Provider 09/17/21 10/14/21 Lydia Bernstein PA-C [address] [place] [address] Assigned PCP 10/01/21 10/21/21 Klarissa Lovesay, W Community Health Worker 10/06/21 07/11/22 [place] [address] [place] [address] Assigned Musculoskeletal Provider 10/15/21 04/26/23 Paula Reza MD [address] [place] [address] Assigned PCP 10/22/21 12/23/21 Keerthi Miner APRN LEAD CARGO MOVER [address] [place] [address] Assigned Heart and Vascular Provider 10/08/21 02/10/22 Shahida Sutton APRN LEAD CARGO MOVER Assigned PCP 12/24/21 03/24/22 Porsha Michaels APRN LEAD CARGO MOVER [address] [place] [address] Assigned Heart and Vascular Provider 02/11/22 05/12/22 Paula Reza MD [address] [place] [address] Assigned PCP 03/25/22 04/07/22 Shahida Sutton APRN LEAD CARGO MOVER [address] [place] [address] Assigned PCP 04/08/22 06/30/22 Daylin Ludwig EP [facility] [address] [place] [address] Cardiac Rehabilitation Therapist 05/16/23 Laurel Velasquez MD [address] [place] [address] Assigned Heart and Vascular Provider 05/13/22 06/30/22 Daylin Ludwig EP [facility] [address] [place] [address]78[address] Cardiac Rehabilitation Therapist 06/08/22 06/09/23 Paula Reza MD [address] [facility] [address] [place], [place] [address] Assigned PCP 07/01/22 07/07/22 Porsha Michaels APRN LEAD CARGO MOVER [address] [place] [address] Assigned Heart and Vascular Provider 07/01/22 07/07/22 Laurel Velasquez MD [address] [place] [address] Assigned Heart and Vascular Provider 07/08/22 08/04/22 Shahida Sutton, [employer] [facility] LEAD CARGO MOVER Assigned PCP 07/08/22 09/08/22 Marilin Montaño, LEAD CARGO MOVER [address] [place] [address] Assigned Heart and Vascular Provider 08/05/22 Esha Dewitt MD [address] [place] [address] 36 [place], [place] [address] Gastroenterology 09/06/22 Heather Mosquera MD [address] [place] [address] Internal Medicine 09/06/22 Paula Reza MD [address] [place] [address] Assigned PCP 09/09/22 01/05/23 sEha Dewitt MD [address] [facility] [address] [place], [place] [address] Assigned Gastroenterology Provider 09/23/22 Valdo Escamilla PA-C [address] [facility] [address] [place], [place] [address] Assigned Neuroscience Provider 09/30/22 Nohelia Abarca PA-C [address] [place], [place] [address] Physician Wheel Filler Gastroenterology 10/03/22 Heather Mosquera MD [address] [place] [address] Assigned PCP 01/06/23 Fawad [place] MD [address] [place], [place] [address] Assigned Musculoskeletal Provider 04/27/23 06/25/23 documented as of this encounter
--- OUTSIDE RECORDS SUMMARY | 2023-09-18 13:50 | XMS_ITS | Encounter Summary ---
Author Organization [facility] Address [address] [place] [address] Care Team Providers Care Cougar Hunter Name Role Phone Shahida Sutton APRN CIVIL STRUCTURAL DESIGNER Primary Care Provi ford Unavailable Shahida Sutton APRN CIVIL STRUCTURAL DESIGNER Unavailable Un available Carolynn Ramon RN Unavailable Augustine Callaway MD Unavailable Brady Lion MD Unavailable Un available Nima France-C Unavailable Camille Chandler PA-C Unavailable [phone] Anabela Barakat APRN CIVIL STRUCTURAL DESIGNER Unavailable Nima France PA-C Unavailable Basilio Morillo DO Unavailable Fawad York MD Unavailable [phone] Roopa Almonte MD Unavailable Augustine Callaway MD Unavailable Maryse Burton PA-C Unavailable [phone] Marquita Starkey MD Unavailable [phone] Roopa Almonte MD Unavailable Griffin Joshi MD Unavailable Rina Magallon RN Unavailable [phone] Paula Reza MD Primary Care Provider [phone] Griffin Joshi MD Unavailable Roopa Almonte MD Unavailable [phone] Basilio Morillo DO Unavailable Lydia Bernstein-C Unavailable Rosa Maria Love Unavailable [phone] Augustine Callaway MD Unavailable Paula Reza MD Unavailable Keerthi Miner APRN CIVIL STRUCTURAL DESIGNER Unavailable [phone] Herman, Shahida Cummings APRN CIVIL STRUCTURAL DESIGNER Unavailable Un available Porsha Michaels APRN CIVIL STRUCTURAL DESIGNER Unavailable [phone] Paula Reza MD Unavailable Shahida Sutton APRN CIVIL STRUCTURAL DESIGNER Unavailable Un available Daylin Ludwig Unavailable [phone] Laurel Velasquez MD Unavailable [phone] Daylin Ludwig Unavailable [phone] Paula Reza MD Unavailable Porsha Michaels APRN CIVIL STRUCTURAL DESIGNER Unavailable [phone] Laurel Velasquez MD Unavailable [phone] Shahida Sutton JOINT SETTER CIVIL STRUCTURAL DESIGNER Unavailable Un available Marilin Montaño CIVIL STRUCTURAL DESIGNER Unavailable [phone] Esha Dewitt MD Unavailable [phone] EvelineHeather MD Unavailable [phone] Paula Reza MD Unavailable Esha Dewitt MD Unavailable [phone] Andi Valdo Desouza PA-C Unavailable [phone] Nohelia Abarca PA-C Unavailable [phone] Heather Mosquera MD Unavailable Fawad York MD Unavailable [phone] Reason for Visit * Reason Comments Medication Refill Encounter Details Date Type Department Care Team (Late st Contact Info) Description 08/03/[address] [address] Shahida Sutton APRN CNP Medication [...] Telephone Encounter - Marilin Cuevas RN - 08/05/2020 2:10 PM CDT Prescription approved per [facility] Refill Protocol. Marilin Cuevas RN [facility] -- Triage Nurse documented in this encounter Plan of Treatment Not on file documented as of this encounter Visit Diagnoses Diagnosis Generalized anxiety disorder documented in this encounter Additional Health Concerns Infection Onset Date Last Indicated Resolved Time Rule Out COVID-19 01/05/2021 01/05/2021 01/06/2021 12:57 PM CDT ESBL 01/05/2021 01/05/2021 Rule Out COVID-19 06/30/2021 06/30/2021 07/01/2021 9:34 AM CDT Rule Out COVID-19 07/25/2021 07/25/2021 07/25/2021 8:02 PM CDT Assessment Noted Time PHQ-9 Depression Total Score: 6 06/06/19 7:02 AM CDT documented as of this encounter Care Teams Cougar Hunter Relationship Specialty Start Date End Date Shahida Sutton APRN CIVIL STRUCTURAL DESIGNER PCP - General Nurse Practitioner 08/17/14 08/04/21 Paula Reza MD [address] [facility] [address] [place] [address] PCP - General Internal Medicine 08/05/21 Shahida Sutton APRN CIVIL STRUCTURAL DESIGNER Assigned PCP 07/12/14 09/30/21 Carolynn Ramon RN Personal Advocate & Liaison (PAL) 12/17/18 08/07/21 [place] [address] [place] [address] Assigned Musculoskeletal Provider 12/26/19 08/21/20 Brady Lion MD Assigned Heart and Vascular Provider 12/26/19 08/14/20 Nima France PA-C [address] [place] [address] Assigned Surgical Provider 05/19/20 08/21/20 Camille Chandler PA-C [address] [place] [address] Assigned Neuroscience Provider 05/19/20 09/14/20 Anabela Barakat APRN CIVIL STRUCTURAL DESIGNER [address] [place] [address] Assigned Heart and Vascular Provider 08/15/20 08/05/21 Nima France PA-C [address] [facility] [address] [place] [address] Assigned Musculoskeletal Provider 08/22/20 11/13/20 [place] [address] [facility] [place], [place] [address] Assigned Musculoskeletal Provider 11/14/20 12/04/20 Fawad York MD [address] [place], [place] [address] Assigned Musculoskeletal Provider 12/05/20 02/05/21 Roopa Almonte MD [address] [facility] [address] [place] [address] Endocrinology, Diabetes, and Metabolism 01/19/21 [place] [address] [facility] [address] [place] [address] Assigned Musculoskeletal Provider 02/06/21 09/16/21 Maryse Burton PA-C [address] [place] [address] Physician Mine Wedge Sawyer Dermatology 04/14/21 Marquita Starkey MD [address] [facility] [address] [place] [address] Internal Medicine 05/06/21 05/06/21 Roopa Almonte MD [address] [place] [address] Hospitalist Endocrinology, Diabetes, and Metabolism 05/30/21 Griffin Joshi MD [address] [facility] [address] [place] [address] Cardiovascular Disease 07/25/21 Rina Magallon, RN Lead Sock Ironer 07/29/21 07/11/22 Griffin Joshi MD [address] [facility] [address] [place] [id number] Assigned Heart and Vascular Provider 08/06/21 10/07/21 Roopa Almonte MD [address] [facility] [address] [place] [address] Assigned Endocrinology Provider 09/10/21 [place] [address] [facility] [place] [address] Assigned Musculoskeletal Provider 09/17/21 10/14/21 Lydia Bernstein PA-C [address] [facility] [address] [place] [id number] Assigned PCP 10/01/21 10/21/21 Rosa Maria Love CHW Community Health Worker 10/06/21 07/11/22 [place] [address] [place] [address] Assigned Musculoskeletal Provider 10/15/21 04/26/23 Paula Reza MD [address] [place] [address] Assigned PCP 10/22/21 12/23/21 Keerthi Miner APRN CIVIL STRUCTURAL DESIGNER [address] [place] [address] Assigned Heart and Vascular Provider 10/08/21 02/10/22 Shahida Sutton APRN CIVIL STRUCTURAL DESIGNER Assigned PCP 12/24/21 03/24/22 Porsha Michaels APRN CIVIL STRUCTURAL DESIGNER [address] [place] [address] Assigned Heart and Vascular Provider 02/11/22 05/12/22 Paula Reza MD [address] [place] [address] Assigned PCP 03/25/22 04/07/22 Shahida Sutton APRN CIVIL STRUCTURAL DESIGNER [address] [place] [address] Assigned PCP 04/08/22 06/30/22 Daylin Ludwig, [facility] [address] [place] [address] Cardiac Rehabilitation Therapist 05/16/23 Laurel Velasquez MD [address] [place] [address] Assigned Heart and Vascular Provider 05/13/22 06/30/22 Daylin Ludwig, [facility] [address] [place], [place] [address] Cardiac Rehabilitation Therapist 06/08/22 06/09/23 Paula Reza MD [address] [place], [place] [address] Assigned PCP 07/01/22 07/07/22 Porsha Michaels APRN CIVIL STRUCTURAL DESIGNER [address] [place] [address] Assigned Heart and Vascular Provider 07/01/22 07/07/22 Laurel Velasquez MD [address] [place] [address] Assigned Heart and Vascular Provider 07/08/22 08/04/22 Shahida Sutton, DUANE CIVIL STRUCTURAL DESIGNER Assigned PCP 07/08/22 09/08/22 Marilin Montaño, CIVIL STRUCTURAL DESIGNER [address] [place] [address] Assigned Heart and Vascular Provider 08/05/22 Esha Dewitt MD [address] [place] [address] [address] [place], [place] [address] Gastroenterology 09/06/22 Heather Mosquera MD [address] [place] [address] Internal Medicine 09/06/22 Paula Reza MD [address] [place] [address] Assigned PCP 09/09/22 01/05/23 Esha Dewitt MD [address] [facility] [address] [place], [place] [address] Assigned Gastroenterology Provider 09/23/22 Valdo Escamilla PA-C [address] [facility] [address] [place] [address] Assigned Neuroscience Provider 09/30/22 Nohelia Abarca PA-C [address] [place] [address] Physician Mine Wedge Sawyer Gastroenterology 10/03/22 Heather Mosquera MD [address] [facility] [address] [facility] [address] [place] [address] Assigned PCP 01/06/23 Fawad York MD [address] [place], [place] [address] Assigned Musculoskeletal Provider 04/27/23 06/25/23 documented as of this encounter
--- OUTSIDE RECORDS SUMMARY | 2023-09-18 13:50 | XMS_ITS | Encounter Summary ---
Author Organization [facility] Address [address] [place] [address] Care Team Providers Care [place] Name Role Phone HermanShahida APRN FIRE SPRINKLER FITTER Primary Care Provi ford Unavailable Shahida Sutton APRN FIRE SPRINKLER FITTER Unavailable Un available Carolynn Ramon RN Unavailable [phone] Anabela Barakat APRN FIRE SPRINKLER FITTER Unavailable Basilio Morillo DO Unavailable Fawad York MD Unavailable [phone] Roopa Almonte MD Unavailable [phone] Augustine Callaway MD Unavailable Maryse Burton PA-C Unavailable [phone] Marquita Starkey MD Unavailable [phone] Roopa Almonte MD Unavailable [phone] Griffin Joshi MD Unavailable Rina Magallon RN Unavailable [phone] Paula Reza MD Primary Care Provider [phone] Griffin Joshi MD Unavailable Roopa Almonte MD Unavailable [phone] IliaBasilio DO Unavailable [phone] Lydia Bernstein PA-C Unavailable KateRosa Maria RACHELL Unavailable [phone] Augustine Callaway MD Unavailable Paula Reza MD Unavailable Keerthi Miner APRN FIRE SPRINKLER FITTER Unavailable [phone] Herman, Shahida Cummings APRN FIRE SPRINKLER FITTER Unavailable Un available Porsha Michaels APRN FIRE SPRINKLER FITTER Unavailable [phone] Paula Reza MD Unavailable Herman, Shahida Cummings APRN FIRE SPRINKLER FITTER Unavailable Un available Daylin Ludwig Unavailable [phone] Laurel Velasquez MD Unavailable [phone] FiDaylin sullivan EP Unavailable [phone] Paula Reza MD Unavailable Porsha Michaels APRN FIRE SPRINKLER FITTER Unavailable [phone] Laurel Velasquez MD Unavailable Herman, Shahida Cummings APRN FIRE SPRINKLER FITTER Unavailable Un available Marilin Montaño FIRE SPRINKLER FITTER Unavailable [phone] Esha Dewitt MD Unavailable [phone] Heather Mosquera MD Unavailable [phone] Paula Reza MD Unavailable Esha Dewitt MD Unavailable [phone] Valdo Escamilla PA-C Unavailable [phone] Nohelia Abarca-C Unavailable [phone] Heather Mosquera MD Unavailable [phone] Fawad York MD Unavailable Reason for Visit * Reason Comments Medication Refill Encounter Details Date Type Department Care Team (Late st Contact Info) Description 11/23/[address] [address] Shahida Sutton APRN CNP Medication [...] documented as of this encounter Care Teams [place] Relationship Specialty Start Date End Date Shahida Sutton APRN CNP PCP - General Nurse Practitioner 08/17/14 08/04/21 Paula Reza MD [address] [facility] [address] [place] [address] PCP - General Internal Medicine 08/05/21 Shahida Sutton, COMMUNITY HEALTH NURSE SUPERVISOR FIRE SPRINKLER FITTER Assigned PCP 07/12/14 09/30/21 Carolynn Ramon, KASIE Personal Advocate & Liaison (PAL) 12/17/18 08/07/21 Anabela Barakat APRN FIRE SPRINKLER FITTER [address] [place] [address] Assigned Heart and Vascular Provider 08/15/20 08/05/21 [place] [address] [place] [address] Assigned Musculoskeletal Provider 11/14/20 12/04/20 Fawad York MD [address] [place], [place] [address] Assigned Musculoskeletal Provider 12/05/20 02/05/21 Roopa Almonte MD [address] [facility] [address] [place] [address] Endocrinology, Diabetes, and Metabolism 01/19/21 [place] [address] [facility] [address] [place] [address] Assigned Musculoskeletal Provider 02/06/21 09/16/21 Maryse Burton PA-C [address] [place] [address] Physician Linux Kernel Engineer Dermatology 04/14/21 Marquita Starkey MD [address] [facility] [address] [place] [address] Internal Medicine 05/06/21 05/06/21 Roopa Almonte MD [address] [facility] [address] [place] [address] Hospitalist Endocrinology, Diabetes, and Metabolism 05/30/21 Griffin Joshi MD [address] [place] [address] Cardiovascular Disease 07/25/21 Rina Magallon RN Lead Signalman 07/29/21 07/11/22 Griffin Joshi MD [address] [place] [address] Assigned Heart and Vascular Provider 08/06/21 10/07/21 Roopa Almonte MD [address] [place] [address] 200 [place], [place] [address] Assigned Endocrinology Provider 09/10/21 [place] [address] [facility] [place] [address] Assigned Musculoskeletal Provider 09/17/21 10/14/21 Lydia Bernstein PA-C [address] [place] [address] Assigned PCP 10/01/21 10/21/21 Rosa Maria Love CHW Community Health Worker 10/06/21 07/11/22 [place] [address] [place] [address] Assigned Musculoskeletal Provider 10/15/21 04/26/23 Paula Reza MD [address] [place] [address] Assigned PCP 10/22/21 12/23/21 Keerthi Miner APRN FIRE SPRINKLER FITTER [address] [place] [address] Assigned Heart and Vascular Provider 10/08/21 02/10/22 Shahida Sutton APRN FIRE SPRINKLER FITTER Assigned PCP 12/24/21 03/24/22 Porsha Michaels APRN FIRE SPRINKLER FITTER [address] [address] Assigned Heart and Vascular Provider 02/11/22 05/12/22 Paula Reza MD [address] [place] [address] Assigned PCP 03/25/22 04/07/22 Shahida Sutton APRN FIRE SPRINKLER FITTER [address] [address] Assigned PCP 04/08/22 06/30/22 Daylin Ludwig EP [facility] [address] [address] [address] Cardiac Rehabilitation Therapist 05/16/23 Laurel Velasquez MD [address] [address] Assigned Heart and Vascular Provider 05/13/22 06/30/22 Daylin Ludwig EP [facility] [address] [place] [address] Cardiac Rehabilitation Therapist 06/08/22 06/09/23 Paula Reza MD [address] [place] [address] Assigned PCP 07/01/22 07/07/22 Porsha Michaels APRN FIRE SPRINKLER FITTER [address] [place] [address] Assigned Heart and Vascular Provider 07/01/22 07/07/22 Laurel Velasquez MD [address] [place] [address] Assigned Heart and Vascular Provider 07/08/22 08/04/22 Shahida Sutton APRN FIRE SPRINKLER FITTER Assigned PCP 07/08/22 09/08/22 Marilin Montaño, FIRE SPRINKLER FITTER [address] [place] [address] Assigned Heart and Vascular Provider 08/05/22 Esha Dewitt MD [address] [place] [address] 36 [place], [place] [address] Gastroenterology 09/06/22 Heather Mosquera MD [address] [place] [address] Internal Medicine 09/06/22 Paula Reza MD [address] [facility] [address] [place], [place] [address] Assigned PCP 09/09/22 01/05/23 Esha Dewitt MD [address] [facility] 36 [place], [place] [address] Assigned Gastroenterology Provider 09/23/22 Valdo Escamilla PA-C [address] [address] [place], [place] [address] Assigned Neuroscience Provider 09/30/22 Nohelia Abarca PA-C [address] [place], [place] [address] Physician Linux Kernel Engineer Gastroenterology 10/03/22 Heather Mosquera MD [address] [facility] [address] [place], [place] [address] Assigned PCP 01/06/23 Fawad York MD [address] [place], [place] [address] Assigned Musculoskeletal Provider 04/27/23 06/25/23 documented as of this encounter
--- OUTSIDE RECORDS SUMMARY | 2023-09-18 13:50 | XMS_ITS | Encounter Summary ---
Author Organization [place] Address [address] [place] [address] Care Team Providers Care Medical Staff Director Name Role Phone Shahida Sutton APRN PATHOLOGY LABORATORY AIDE Primary Care Provi ford Unavailable Shahida Sutton APRN PATHOLOGY LABORATORY AIDE Unavailable Un available Carolynn Ramon RN Unavailable Augustine Callaway MD Unavailable Brady Lion MD Unavailable Un available Nima France-C Unavailable Camille Chandler PA-C Unavailable [phone] Anabela Barakat APRN PATHOLOGY LABORATORY AIDE Unavailable Nima France PA-C Unavailable Basilio Morillo DO Unavailable Fawad York MD Unavailable Roopa Almonte MD Unavailable Augustine Callaway MD Unavailable Maryse Burton PA-C Unavailable Marquita Starkey MD Unavailable [phone] Roopa Almonte MD Unavailable Griffin Joshi MD Unavailable Rina Magallon RN Unavailable [phone] Paula Reza MD Primary Care Provider [phone] Griffin Joshi MD Unavailable Roopa Almonte MD Unavailable [phone] Basilio Morillo DO Unavailable Lydia Bernstein-C Unavailable Rosa Maria Love Unavailable [phone] Augustine Callaway MD Unavailable Paula Reza MD Unavailable Keerthi Miner APRN PATHOLOGY LABORATORY AIDE Unavailable [phone] Herman, Shahida Cummings APRN PATHOLOGY LABORATORY AIDE Unavailable Un available Porsha Michaels APRN PATHOLOGY LABORATORY AIDE Unavailable [phone] Paula Reza MD Unavailable Shahida Sutton APRN PATHOLOGY LABORATORY AIDE Unavailable Un available Daylin Ludwig Unavailable [phone] Laurel Velasquez MD Unavailable [phone] Daylin Ludwig Unavailable [phone] Paula Reza MD Unavailable Porsha Michaels APRN PATHOLOGY LABORATORY AIDE Unavailable [phone] Laurel Velasquez MD Unavailable [phone] Shahida Sutton IT FIELD TECHNICIAN PATHOLOGY LABORATORY AIDE Unavailable Un available Marilin Montaño PATHOLOGY LABORATORY AIDE Unavailable [phone] Esha Dewitt MD Unavailable [phone] EvelineHeather MD Unavailable [phone] Paula Reza MD Unavailable Esha Dewitt MD Unavailable [phone] Andi Valdo Desouza PA-C Unavailable [phone] Nohelia Abarca PA-C Unavailable [phone] Heather Mosquera MD Unavailable Fawad York MD Unavailable Reason for Visit * Reason Onset Date Comments Appointment 02/11/2020 Encounter Details Date Type Department Care Team (Late st Contact Info) Description 02/11/[address] [phone] Shahida Sutton APRN PATHOLOGY LABORATORY AIDE Appointment Social History Tobacco Use Types Packs/Day [...] have Coronavirus / COVID-19? No / Unsure 02/06/2020 8:12 AM TRANSIT VEHICLE INSPECTOR documented as of this encounter Miscellaneous Notes * Telephone Encounter - Carolynn Ramon RN - 02/11/2020 12:18 PM TRANSIT VEHICLE INSPECTOR Shahida Sutton APRN PATHOLOGY LABORATORY AIDE FYI - Patient is concerned with his overall mental and physical health Patient is having diarrhea, migraines, pain issues that are ongoing Patient states that due to his mental state yesterday he gave himself an increased dose of insulin on accident - went to the ER (viewable in epic) per ER notes glucose was elevated at each check 256,279, 275, 277,228 (per review rn) Patient states that he thinks he needs to take a leave of absence from work. RN scheduled appt with pcp in clinic Next 5 appointments (look out 90 days) Feb 13, 2020 8:15 AM Return Visit with Brady Lion MD [facility] [address] [facility] 140 [facility] [phone] Feb 19, 2020 2:00 PM (Arrive by 1:40 PM) Office Visit with Shahida Sutton APRN CNP [facility] ([facility]) [address] [place] [phone] Carolynn Ramon, Registered Nurse, PAL (Patient Advocate Liason) [facility] [phone] SIT VEHICLE INSPECTOR * Telephone Encounter - Rachel Lozada - 02/11/2020 10:16 AM CST General Call: Who is calling: Patient Reason for Call: States has multiple concerns that he wants to see Shahida Herman for, she is currently scheduling out until 03/15/20.Pt states he's just been feeling ill, has digestive issues, diarrhea,flair ups of pain, migraines, and also needs to discuss medications. He is wondering if Shahida is able to fit him in her schedule to be seen for these things. Please advise and return pt call What are your questions or concerns: none Date of last appointment with provider: 09/12/19 Okay to leave a detailed message:No at Home number on file [phone] (home) Rachel Lozada-Patient Rep SIT VEHICLE INSPECTOR documented in this encounter Plan of Treatment Not on file documented as of this encounter Visit Diagnoses Not on filedocumented in this encounter Additional Health Concerns Infection Onset Date Last Indicated Resolved Time Rule Out COVID-19 02/15/2020 02/15/2020 02/16/2020 2:32 PM TRANSIT VEHICLE INSPECTOR Rule Out COVID-19 01/05/2021 01/05/2021 01/06/2021 12:57 PM CDT ESBL 01/05/2021 01/05/2021 Rule Out COVID-19 06/30/2021 06/30/2021 07/01/2021 9:34 AM CDT Rule Out COVID-19 07/25/2021 07/25/2021 07/25/2021 8:02 PM CDT Assessment Noted Time PHQ-9 Depression Total Score: 7 08/13/19 20 1:22 PM CDT documented as of this encounter Care Teams Medical Staff Director Relationship Specialty Start Date End Date Shahida Sutton APRN PATHOLOGY LABORATORY AIDE PCP - General Nurse Practitioner 08/17/14 08/04/21 Paula Reza MD [address] [place] [address] PCP - General Internal Medicine 08/05/21 Shahida Sutton APRN PATHOLOGY LABORATORY AIDE Assigned PCP 07/12/14 09/30/21 Carolynn Ramon RN Personal Advocate & Liaison (PAL) 12/17/18 08/07/21 [place] [address] [place] [address] Assigned Musculoskeletal Provider 12/26/19 08/21/20 Brady Lion MD Assigned Heart and Vascular Provider 12/26/19 08/14/20 Nima France PA-C [address] [place] [id number] Assigned Surgical Provider 05/19/20 08/21/20 Camille Chandler PA-C [address] [place] [address]38[address] Assigned Neuroscience Provider 05/19/20 09/14/20 Anabela Barakat APRN PATHOLOGY LABORATORY AIDE [address] [place] [address] Assigned Heart and Vascular Provider 08/15/20 08/05/21 Nima France PA-C [address] [facility] 450 [place] [address] Assigned Musculoskeletal Provider 08/22/20 11/13/20 [place] [address] [place] [address] Assigned Musculoskeletal Provider 11/14/20 12/04/20 Fawad York MD [address] [place] [address] Assigned Musculoskeletal Provider 12/05/20 02/05/21 Roopa Almonte MD [address] [facility] 200 [place] [address] Endocrinology, Diabetes, and Metabolism 01/19/21 [place] [address] [facility] 300 [place] [address] Assigned Musculoskeletal Provider 02/06/21 09/16/21 Maryse Burton PA-C [address] [place] [address] Physician Physical Education Department Chair Dermatology 04/14/21 Marquita Starkey MD [address] [facility] 200 [place], [place] [address] Internal Medicine 05/06/21 05/06/21 Roopa Almonte MD [address] [facility] 200 [place] [address] Hospitalist Endocrinology, Diabetes, and Metabolism 05/30/21 Griffin Joshi MD [address] [place] [address] Cardiovascular Disease 07/25/21 Rina Magallon, RN Lead Coffee Shop Attendant 07/29/21 07/11/22 Griffin Joshi MD [address] [place] [address] Assigned Heart and Vascular Provider 08/06/21 10/07/21 Roopa Almonte MD [address] [facility] 200 [place], [place] [address] Assigned Endocrinology Provider 09/10/21 [place] [address] [facility] [place] [address] Assigned Musculoskeletal Provider 09/17/21 10/14/21 Lydia Bernstein PA-C [address] [place] [address] Assigned PCP 10/01/21 10/21/21 Rosa Maria Love CHW Community Health Worker 10/06/21 07/11/22 [place] [address] [place] [address] Assigned Musculoskeletal Provider 10/15/21 04/26/23 Paula Reza MD [address] [place] [address] Assigned PCP 10/22/21 12/23/21 Keerthi Miner APRN PATHOLOGY LABORATORY AIDE [address] [place] [address] Assigned Heart and Vascular Provider 10/08/21 02/10/22 Shahida Sutton APRN PATHOLOGY LABORATORY AIDE Assigned PCP 12/24/21 03/24/22 Porsha Michaels APRN PATHOLOGY LABORATORY AIDE [address] [place] [address] Assigned Heart and Vascular Provider 02/11/22 05/12/22 Paula Reza MD [address] [place] [address] Assigned PCP 03/25/22 04/07/22 Shahida Sutton APRN PATHOLOGY LABORATORY AIDE [address] [place] [address] Assigned PCP 04/08/22 06/30/22 Daylin Ludwig EP [facility] [address] [place] [address] Cardiac Rehabilitation Therapist 05/16/23 Laurel Velasquez MD [address] [place] [address] Assigned Heart and Vascular Provider 05/13/22 06/30/22 Daylin Ludwig EP [facility] [address] [place] [address]4575 Cardiac Rehabilitation Therapist 06/08/22 06/09/23 Paula Reza MD [address] [facility] 200 [place], [place] [address] Assigned PCP 07/01/22 07/07/22 Porsha Michaels APRN PATHOLOGY LABORATORY AIDE [address] [place] [address] Assigned Heart and Vascular Provider 07/01/22 07/07/22 Laurel Velasquez MD [address] [place] [address] Assigned Heart and Vascular Provider 07/08/22 08/04/22 Shahida Sutton APRN PATHOLOGY LABORATORY AIDE Assigned PCP 07/08/22 09/08/22 Marilin Montaño, PATHOLOGY LABORATORY AIDE [address] [place] [address] Assigned Heart and Vascular Provider 08/05/22 Esha Dewitt MD [address] [place] [address] 36 [place], [place] [address] Gastroenterology 09/06/22 Heather Mosquera MD [address] [place] [address] Internal Medicine 09/06/22 Paula Reza MD [address] [place] [address] Assigned PCP 09/09/22 01/05/23 Esha Dewitt MD [address] [facility] 36 [place], [place] [address] Assigned Gastroenterology Provider 09/23/22 Valdo Escamilla PA-C [address] [facility] [address] [place], [place] [address] Assigned Neuroscience Provider 09/30/22 Nohelia bAarca PA-C [address] [place], [place] [address] Physician Physical Education Department Chair Gastroenterology 10/03/22 Heather Mosquera MD [address] [place], [place] [address] Assigned PCP 01/06/23 Fawad York MD [address] [place], [place] [address] Assigned Musculoskeletal Provider 04/27/23 06/25/23 documented as of this encounter
--- OUTSIDE RECORDS SUMMARY | 2023-09-18 13:50 | XMS_ITS | Encounter Summary ---
Author Organization [place] Address [address] [place] [address] Care Team Providers Care Ignition Specialist Name Role Phone HermanShahida huerta APRN CERTIFIED COURT INTERPRETER Primary Care Provi ford Unavailable Shahida Sutton APRN CERTIFIED COURT INTERPRETER Unavailable Un available Carolynn Ramon RN Unavailable Anabela Barakat APRN CERTIFIED COURT INTERPRETER Unavailable Nima France PA-C Unavailable [phone] Basilio Morillo DO Unavailable Fawad York MD Unavailable Roopa Almonte MD Unavailable [phone] Augustine Callaway MD Unavailable Maryse Burton PA-C Unavailable [phone] Marquita Starkey MD Unavailable Roopa Almonte MD Unavailable Griffin Joshi MD Unavailable Rina Magallon RN Unavailable Paula Reza MD Primary Care Provider Griffin Joshi MD Unavailable Roopa Almonte MD Unavailable Ilia Basilio Naik Unavailable Lydia Bernstein PA-C Unavailable Kate Rosa Maria CHW Unavailable Augustine Callaway MD Unavailable Paula Reza MD Unavailable Keerthi Miner APRN CERTIFIED COURT INTERPRETER Unavailable Herman, Shahida Cummings APRN CERTIFIED COURT INTERPRETER Unavailable Un available Porsha Michaels APRN CERTIFIED COURT INTERPRETER Unavailable [phone] Paula Reza MD Unavailable Herman, Shahida Cummings APRN CERTIFIED COURT INTERPRETER Unavailable Un available Daylin Ludwig Unavailable [phone] Laurel Velasquez MD Unavailable Daylin Ludwig Unavailable [phone] Paula Reza MD Unavailable Porsha Michaels APRN CERTIFIED COURT INTERPRETER Unavailable [phone] Laurel Velasquez MD Unavailable Herman, Shahida Cummings APRN CERTIFIED COURT INTERPRETER Unavailable Un available Marilin Montaño CERTIFIED COURT INTERPRETER Unavailable [phone] Esha Dewitt MD Unavailable [phone] Heather Mosquera MD Unavailable Paula Reza MD Unavailable Esha Dewitt MD Unavailable [phone] Valdo Escamilla PA-C Unavailable [phone] Nohelia Abarca PA-C Unavailable [phone] Heather Mosquera MD Unavailable Fawad York MD [facility] Encounter Details Date Type Department Care Team (Late st Contact Info) Description 11/09/2020 MyC Medical Advice [address] [phone] Hiral Curran, SLEEP TECHNICIAN Social History Tobacco Use Types Packs/Day Years [...] have Coronavirus / COVID-19? No / Unsure 11/10/2020 9:05 AM CDT documented as of this encounter [...] documented as of this encounter Care Teams Ignition Specialist Relationship Specialty Start Date End Date Shahida Sutton APRN CERTIFIED COURT INTERPRETER PCP - General Nurse Practitioner 08/17/14 08/04/21 Paula Reza MD [address] [place] [address] PCP - General Internal Medicine 08/05/21 Shahida Sutton, TURBINE MECHANIC CERTIFIED COURT INTERPRETER Assigned PCP 07/12/14 09/30/21 Carolynn Ramon, KASIE Personal Advocate & Liaison (PAL) 12/17/18 08/07/21 Anabela Barakat, TURBINE MECHANIC CERTIFIED COURT INTERPRETER [address] [place] [address] Assigned Heart and Vascular Provider 08/15/20 08/05/21 Nima France PA-C [address] [facility] 450 [place] [address] Assigned Musculoskeletal Provider 08/22/20 11/13/20 [place] [address] [facility] [place], [place] [address] Assigned Musculoskeletal Provider 11/14/20 12/04/20 Fawad York MD [address] [place], [place] [address] Assigned Musculoskeletal Provider 12/05/20 02/05/21 Roopa Almonte MD [address] [facility] [address] [place] [address] Endocrinology, Diabetes, and Metabolism 01/19/21 [place] [address] [place] [address] Assigned Musculoskeletal Provider 02/06/21 09/16/21 Maryse Burton PA-C [address] [facility] [address] Physician Asbestos Shingle Inspector Dermatology 04/14/21 Marquita Starkey MD [address] [facility] [address] [place], [place] [address] Internal Medicine 05/06/21 05/06/21 Roopa Almonte MD [address] [facility] 200 [place], [place] [address] Hospitalist Endocrinology, Diabetes, and Metabolism 05/30/21 Griffin Joshi MD [address] [place] [address] Cardiovascular Disease 07/25/21 Rina Magallon, RN Lead Pipe Stem Repairer 07/29/21 07/11/22 Griffin Joshi MD [address] [place] [address] Assigned Heart and Vascular Provider 08/06/21 10/07/21 Roopa Almonte MD [address] [place], [place] [address] Assigned Endocrinology Provider 09/10/21 [place] [address] [facility] [place] [address] Assigned Musculoskeletal Provider 09/17/21 10/14/21 Lydia Bernstein PA-C [address] [place] [address] Assigned PCP 10/01/21 10/21/21 Rosa Maria Love CHW Community Health Worker 10/06/21 07/11/22 [place] [address] [place] [address] Assigned Musculoskeletal Provider 10/15/21 04/26/23 Paula Reza MD [address] [place], [place] [address] Assigned PCP 10/22/21 12/23/21 Keerthi Miner APRN CERTIFIED [address] INTERPRETER [address] [place] [address] Assigned Heart and Vascular Provider 10/08/21 02/10/22 Shahida Sutton APRN CERTIFIED COURT INTERPRETER Assigned PCP 12/24/21 03/24/22 Porsha Michaels APRN CERTIFIED COURT INTERPRETER [address] [place] [address] Assigned Heart and Vascular Provider 02/11/22 05/12/22 Paula Reza MD [address] [place] [address] Assigned PCP 03/25/22 04/07/22 Shahida Sutton APRN CERTIFIED COURT INTERPRETER [address] [place] [address] Assigned PCP 04/08/22 06/30/22 Daylin Ludwig EP [facility] [address] [place] [address] Cardiac Rehabilitation Therapist 05/16/23 Laurel Velasquez MD [address] [place] [address] Assigned Heart and Vascular Provider 05/13/22 06/30/22 Daylin Ludwig EP [facility] [address] [place] [address] Cardiac Rehabilitation Therapist 06/08/22 06/09/23 Paula Reza MD [address] [facility] 200 [place], [place] [address] Assigned PCP 07/01/22 07/07/22 Porsha Michaels APRN CERTIFIED COURT INTERPRETER [address] [place] [address] Assigned Heart and Vascular Provider 07/01/22 07/07/22 Laurel Velasquez MD [address] [place] [address] Assigned Heart and Vascular Provider 07/08/22 08/04/22 Shahida Sutton APRN CERTIFIED COURT INTERPRETER Assigned PCP 07/08/22 09/08/22 Marilin Montaño, CERTIFIED COURT INTERPRETER [address] [place] [address] Assigned Heart and Vascular Provider 08/05/22 Esha Dewitt MD [address] [address] Gastroenterology 09/06/22 Heather Mosquera MD 6545 [facility] 150 [place] [address] Internal Medicine 09/06/22 Paula Reza MD [address] [place] [address] Assigned PCP 09/09/22 01/05/23 Esha Dewitt MD [address] [place] [address] Assigned Gastroenterology Provider 09/23/22 Valdo Escamilla PA-C [address] [facility] 103 [place] [address] Assigned Neuroscience Provider 09/30/22 Nohelia Abarca PA-C 2450 [place] [address] Physician Asbestos Shingle Inspector Gastroenterology 10/03/22 Heather Mosquera MD 6545 [facility] 150 [place] [address] Assigned PCP 01/06/23 Fawad York MD [address] [place], [place] [address] Assigned Musculoskeletal Provider 04/27/23 06/25/23 documented as of this encounter
--- OUTSIDE RECORDS SUMMARY | 2023-09-18 13:51 | XMS_ITS | Encounter Summary ---
Author Organization [place] Address [address] [place] [address] Care Team Providers Care Slide Fastener Repairer Name Role Phone Shahida Sutton APRN NURSING CLERK Primary Care Provi ford Unavailable Shahida Sutton APRN NURSING CLERK Unavailable Un available Carolynn Ramon RN Unavailable Augustine Callaway MD Unavailable Brady Lion MD Unavailable Un available Nima France-C Unavailable Camille Chandler PA-C Unavailable [phone] Anabela Barakat APRN NURSING CLERK Unavailable Nima France PA-C Unavailable Basilio Morillo DO Unavailable Fawad York MD Unavailable [phone] Roopa Almonte MD Unavailable Augustine Callaway MD Unavailable Maryse Burton PA-C Unavailable Marquita Starkey MD Unavailable [phone] Roopa Almonte MD Unavailable Griffin Joshi MD Unavailable Rina Magallon RN Unavailable [phone] Paula Reza MD Primary Care Provider [phone] Griffin Joshi MD Unavailable Roopa Amlonte MD Unavailable [phone] Basilio Morillo DO Unavailable Lydia Bernstein-C Unavailable Rosa Maria Love Unavailable [phone] Augustine Callaway MD Unavailable Paula Reza MD Unavailable Keerthi Miner APRN NURSING CLERK Unavailable [phone] Herman, Shahida Cummings APRN NURSING CLERK Unavailable Un available Porsha Michaels APRN NURSING CLERK Unavailable [phone] Paula Reza MD Unavailable Shahida Sutton APRN NURSING CLERK Unavailable Un available Daylin Ludwig Unavailable [phone] Laurel Velasquez MD Unavailable [phone] Daylin Ludwig Unavailable [phone] Paula Reza MD Unavailable Porsha Michaels APRN NURSING CLERK Unavailable [phone] Laurel Velasquez MD Unavailable [phone] Shahida Sutton MILL REPRESENTATIVE NURSING CLERK Unavailable Un available Marilin Montaño NURSING CLERK Unavailable [phone] Esha Dewitt MD Unavailable [phone] EvelineHeather MD Unavailable [phone] Paula Reza MD Unavailable Esha Dewitt MD Unavailable [phone] Valdo Escamilla PA-C Unavailable [phone] Nohelia Abarca PA-C Unavailable [phone] Heather Mosquera MD Unavailable Fawad York MD Unavailable [phone] Encounter Details Date Type Department Care Team (Late st Contact Info) Description 02/05/2020 Documentation Only [address] [phone] Shahida Sutton APRN NURSING CLERK Social History Tobacco Use Types Packs/Day Years [...] COVID-19? 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 documented as of this encounter Plan of Treatment Not on file documented as of this encounter Visit Diagnoses Not on filedocumented in this encounter Additional Health Concerns Infection Onset Date Last Indicated Resolved Time Rule Out COVID-19 02/15/2020 02/15/2020 02/16/2020 2:32 PM PULLEY MAINTAINER Rule Out COVID-19 01/05/2021 01/05/2021 01/06/2021 12:57 PM CDT ESBL 01/05/2021 01/05/2021 Rule Out COVID-19 06/30/2021 06/30/2021 07/01/2021 9:34 AM CDT Rule Out COVID-19 07/25/2021 07/25/2021 07/25/2021 8:02 PM CDT Assessment Noted Time PHQ-9 Depression Total Score: 7 08/13/19 20 1:22 PM CDT documented as of this encounter Care Teams Slide Fastener Repairer Relationship Specialty Start Date End Date Shahida Sutton APRN NURSING CLERK PCP - General Nurse Practitioner 08/17/14 08/04/21 Paula Reza MD [address] [facility] [facility] 200 [place] [address] PCP - General Internal Medicine 08/05/21 Shahida Sutton APRN NURSING CLERK Assigned PCP 07/12/14 09/30/21 Carolynn Ramon RN Personal Advocate & Liaison (PAL) 12/17/18 08/07/21 [place] [address] [place] [address] Assigned Musculoskeletal Provider 12/26/19 08/21/20 Brady Lion MD Assigned Heart and Vascular Provider 12/26/19 08/14/20 Nima France PA-C [address] [place] [address] Assigned Surgical Provider 05/19/20 08/21/20 Camille Chandler PA-C [address] [place] [id number] Assigned Neuroscience Provider 05/19/20 09/14/20 Anabela Barakat APRN NURSING CLERK [address] [place] [address] Assigned Heart and Vascular Provider 08/15/20 08/05/21 Nima France PA-C [address] [facility] 450 [place] [address] Assigned Musculoskeletal Provider 08/22/20 11/13/20 [place] [address] [place] [address] Assigned Musculoskeletal Provider 11/14/20 12/04/20 Fawad York MD [address] [place], [place] [address]385 Assigned Musculoskeletal Provider 12/05/20 02/05/21 Roopa Almnote MD [address] [facility] 200 [place] [address] Endocrinology, Diabetes, and Metabolism 01/19/21 [place] [address] [facility] [address] [place] [address] Assigned Musculoskeletal Provider 02/06/21 09/16/21 Maryse Burton PA-C [address] [place] [address] Physician Repairer Kiln Car Dermatology 04/14/21 Marquita Starkey MD [address] [facility] [address] [place], [place] [address] Internal Medicine 05/06/21 05/06/21 Roopa Almonte MD [address] [facility] [address] [place], [place] [address] Hospitalist Endocrinology, Diabetes, and Metabolism 05/30/21 Griffin Joshi MD [address] [facility] [address] [place] [address] Cardiovascular Disease 07/25/21 Rina Magallon, RN Lead Funeral Sales Manager 07/29/21 07/11/22 Griffin Joshi MD [address] [place] [address] Assigned Heart and Vascular Provider 08/06/21 10/07/21 Roopa Almonte MD [address] [facility] 200 [place], [place] [address] Assigned Endocrinology Provider 09/10/21 [place] [address] [facility] [place] [address] Assigned Musculoskeletal Provider 09/17/21 10/14/21 Lydia Bernstein PA-C [address] [facility] 150 [place] [address] Assigned PCP 10/01/21 10/21/21 Rosa Maria Love CHW Community Health Worker 10/06/21 07/11/22 [place] [address] [place] [address] Assigned Musculoskeletal Provider 10/15/21 04/26/23 Paula Reza MD [address] [place] [address] Assigned PCP 10/22/21 12/23/21 Keerthi Miner APRN NURSING CLERK [address] [place] [address] Assigned Heart and Vascular Provider 10/08/21 02/10/22 Shahida Sutton APRN NURSING CLERK Assigned PCP 12/24/21 03/24/22 Porsha Michaels APRN NURSING CLERK [address] [place] [address] Assigned Heart and Vascular Provider 02/11/22 05/12/22 Paula Reza MD [address] [place] [address] Assigned PCP 03/25/22 04/07/22 Shahida Sutton APRN NURSING CLERK [address] [place] [address] Assigned PCP 04/08/22 06/30/22 Daylin Ludwig, EP [facility] [address] [address] Cardiac Rehabilitation Therapist 05/16/23 Laurel Velasquez MD [address] [address] Assigned Heart and Vascular Provider 05/13/22 06/30/22 Daylin Ludwig, EP [facility] [address] [place] [address] Cardiac Rehabilitation Therapist 06/08/22 06/09/23 Paula Reza MD [address] [place], [place] [address] Assigned PCP 07/01/22 07/07/22 Porsha Michaels APRN NURSING CLERK [address] [place] [address] Assigned Heart and Vascular Provider 07/01/22 07/07/22 Laurel Velasquez MD [address] [place] [address] Assigned Heart and Vascular Provider 07/08/22 08/04/22 Shahida Sutton APRN NURSING CLERK Assigned PCP 07/08/22 09/08/22 Marilin Montaño, NURSING CLERK [address] [place] [address] Assigned Heart and Vascular Provider 08/05/22 Esha Dewitt MD [address] [place] [address] 36 [place], [place] [address] Gastroenterology 09/06/22 Heather Mosquera MD [address] [place] [address] Internal Medicine 09/06/22 Paula Reza MD [address] [place] [address] Assigned PCP 09/09/22 01/05/23 Esha Dewitt MD [address] [facility] 36 [place], [place] [address] Assigned Gastroenterology Provider 09/23/22 Valdo Escamilla PA-C [address] [facility] [facility] [address] [place] [address] Assigned Neuroscience Provider 09/30/22 Nohelia Abarca PA-C [address] [place] [address] Physician Repairer Kiln Car Gastroenterology 10/03/22 Heather Mosquera MD [address] [place] [address] Assigned PCP 01/06/23 Fawad York MD [address] [place], [place] [address] Assigned Musculoskeletal Provider 04/27/23 06/25/23 documented as of this encounter
--- OUTSIDE RECORDS SUMMARY | 2023-09-18 13:51 | XMS_ITS | Encounter Summary ---
Author Organization [place] Address [address] [place] [address] Care Team Providers Care Marketing Campaign Analyst Name Role Phone Shahida Sutton APRN HASHER OPERATOR Primary Care Provi ford Unavailable Shahida Sutton APRN HASHER OPERATOR Unavailable Un available Carolynn Ramon RN Unavailable Augustine Callaway MD Unavailable Brady Lion MD Unavailable Un available Nima France-C Unavailable Camille Chandler PA-C Unavailable [phone] Anabela Barakat APRN HASHER OPERATOR Unavailable Nima France PA-C Unavailable Basilio Morillo DO Unavailable Fawad York MD Unavailable [phone] Roopa Almonte MD Unavailable Augustine Callaway MD Unavailable Maryse Burton PA-C Unavailable Marquita Starkey MD Unavailable [phone] Roopa Almonte MD Unavailable Griffin Joshi MD Unavailable Rina Magallon RN Unavailable [phone] Paula Reza MD Primary Care Provider [phone] Griffin Joshi MD Unavailable Roopa Almonte MD Unavailable [phone] Basilio Morillo DO Unavailable Lydia Bernstein-C Unavailable Rosa Maria Love Unavailable [phone] Augustine Callaway MD Unavailable Paula Reza MD Unavailable Keerthi Miner APRN HASHER OPERATOR Unavailable [phone] Herman, Shahida Cummings APRN HASHER OPERATOR Unavailable Un available Porsha Michaels APRN HASHER OPERATOR Unavailable [phone] Paula Reza MD Unavailable Shahida Sutton APRN HASHER OPERATOR Unavailable Un available Daylin Ludwig Unavailable [phone] Laurel Velasquez MD Unavailable [phone] Daylin Ludwig Unavailable [phone] Paula Reza MD Unavailable Porsha Michaels APRN HASHER OPERATOR Unavailable [phone] Laurel Velasquez MD Unavailable [phone] Shahida Sutton MEDIATION COMMISSIONER HASHER OPERATOR Unavailable Un available Marilin Montaño HASHER OPERATOR Unavailable [phone] Esha Dewitt MD Unavailable [phone] EvelineHeather MD Unavailable [phone] Paula Reza MD Unavailable Esha Dewitt MD Unavailable [phone] Andi Valdo Desouza PA-C Unavailable Nohelia Abarca PA-C Unavailable [phone] Heather Mosquera MD Unavailable Fawad York MD Unavailable [phone] Reason for Visit * Reason Onset Date Comments Refill Request 01/04/2020 Encounter Details Date Type Department Care Team (Late st Contact Info) Description 01/04/2020 MyC Refill M [address] [phone] Shahida Sutton APRN HASHER OPERATOR Refill Request Social History Tobacco Use Types Packs/Day Years [...] Out COVID-19 02/15/2020 02/15/2020 02/16/2020 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 Rule Out COVID-19 01/05/2021 01/05/2021 01/06/2021 12:57 PM CDT ESBL 01/05/2021 01/05/2021 Rule Out COVID-19 06/30/2021 06/30/2021 07/01/2021 9:34 AM CDT Rule Out COVID-19 07/25/2021 07/25/2021 07/25/2021 8:02 PM CDT Assessment Noted Time PHQ-9 Depression Total Score: 7 08/13/19 20 1:22 PM CDT documented as of this encounter Care Teams Marketing Campaign Analyst Relationship Specialty Start Date End Date Shahida Sutton APRN HASHER OPERATOR PCP - General Nurse Practitioner 08/17/14 08/04/21 Paula Reza MD [address] [facility] 200 [place] [address] PCP - General Internal Medicine 08/05/21 Shahida Sutton APRN HASHER OPERATOR Assigned PCP 07/12/14 09/30/21 Carolynn Ramon, KASIE Personal Advocate & Liaison (PAL) 12/17/18 08/07/21 [place] [address] [facility] 300 [place] [address] Assigned Musculoskeletal Provider 12/26/19 08/21/20 Brady Lion MD Assigned Heart and Vascular Provider 12/26/19 08/14/20 Nima France PA-C [address] [facility] 450 [place] [address] Assigned Surgical Provider 05/19/20 08/21/20 Camille Chandler PA-C [address] [facility] [address] [place] [address] Assigned Neuroscience Provider 05/19/20 09/14/20 Anabela Barakat APRN HASHER OPERATOR [address] [place] [address] Assigned Heart and Vascular Provider 08/15/20 08/05/21 Nima France PA-C [address] [place] [address] Assigned Musculoskeletal Provider 08/22/20 11/13/20 Ilia Basilio Naik [address] [place] [address] Assigned Musculoskeletal Provider 11/14/20 12/04/20 Fawad York MD [address] [place], [place] [address] Assigned Musculoskeletal Provider 12/05/20 02/05/21 Roopa Almonte MD [address] [facility] [address] [place] [address] Endocrinology, Diabetes, and Metabolism 01/19/21 [place] [address] [facility] [address] [place] [address] Assigned Musculoskeletal Provider 02/06/21 09/16/21 Maryse Burton PA-C [address] [place] [address] Physician Examination Proctor Dermatology 04/14/21 Marquita Starkey MD [address] [place] [address] Internal Medicine 05/06/21 05/06/21 Roopa Almonte MD [address] [place] [address] Hospitalist Endocrinology, Diabetes, and Metabolism 05/30/21 Griffin Joshi MD [address] [facility] [address] [place] [address] Cardiovascular Disease 07/25/21 Rina Magallon, RN Lead Prop Sawyer 07/29/21 07/11/22 Griffin Joshi MD [address] [facility] [address] [place] [address] Assigned Heart and Vascular Provider 08/06/21 10/07/21 Roopa Almonte MD [address] [place] [address] 200 [place], [place] [address] Assigned Endocrinology Provider 09/10/21 [place] [address] [place] [address] Assigned Musculoskeletal Provider 09/17/21 10/14/21 Lydia Bernstein PA-C [address] [facility] [address] [place] [address] Assigned PCP 10/01/21 10/21/21 Rosa Maria Love CHW Community Health Worker 10/06/21 07/11/22 [place] [address] [facility] [address] [place] [address] Assigned Musculoskeletal Provider 10/15/21 04/26/23 Paula Reza MD [address] [facility] 200 [place] [address] Assigned PCP 10/22/21 12/23/21 Keerthi Miner APRN HASHER OPERATOR [address] [place] [address] Assigned Heart and Vascular Provider 10/08/21 02/10/22 Shahida Sutton APRN HASHER OPERATOR Assigned PCP 12/24/21 03/24/22 Porsha Michaels APRN HASHER OPERATOR [address] [place] [address] Assigned Heart and Vascular Provider 02/11/22 05/12/22 Paula Reza MD [address] [facility] [address] [place] [address] Assigned PCP 03/25/22 04/07/22 Shahida Sutton APRN HASHER OPERATOR [address] [place] [address] Assigned PCP 04/08/22 06/30/22 Daylin Ludwig EP [facility] [address] [place] [address] Cardiac Rehabilitation Therapist 05/16/23 Laurel Velasquez MD [address] [place] [address] Assigned Heart and Vascular Provider 05/13/22 06/30/22 Daylin Ludwig EP [facility] [address] [place] [address] Cardiac Rehabilitation Therapist 06/08/22 06/09/23 Paula Reza MD [address] [place] [address] Assigned PCP 07/01/22 07/07/22 Porsha Michaels APRN HASHER OPERATOR [address] [place] [address] Assigned Heart and Vascular Provider 07/01/22 07/07/22 Laurel Velasquez MD [address] [place] [address] Assigned Heart and Vascular Provider 07/08/22 08/04/22 Shahida Sutton APRN HASHER OPERATOR Assigned PCP 07/08/22 09/08/22 Marilin Montaño HASHER OPERATOR [address] [place] [address] Assigned Heart and Vascular Provider 08/05/22 Esha Dewitt MD [address] [place] [address] Gastroenterology 09/06/22 Heather Mosquera MD [address] [place] [address] Internal Medicine 09/06/22 Paula Reza MD [address] [place] [address] Assigned PCP 09/09/22 01/05/23 Esha Dewitt MD [address] [place] [address] Assigned Gastroenterology Provider 09/23/22 Valdo Escamilla PA-C [address] [facility] 103 [place] [address] Assigned Neuroscience Provider 09/30/22 Nohelia Abarca PA-C [address] [place], [place] [address] Physician Examination Proctor Gastroenterology 10/03/22 Heather Mosquera MD [address]45 [facility] 150 [place], [place] [address] Assigned PCP 01/06/23 Fawad York MD [address] [place], [place] [address] Assigned Musculoskeletal Provider 04/27/23 06/25/23 documented as of this encounter
--- OUTSIDE RECORDS SUMMARY | 2023-09-18 13:51 | XMS_ITS | Encounter Summary ---
Author Organization [facility] Address [address] [place] [address] Care Team Providers Care Title Curator Name Role Phone Shahida Sutton APRN TREATING ENGINEER Primary Care Provi ford Unavailable Shahida Sutton APRN TREATING ENGINEER Unavailable Un available Carolynn Ramon RN Unavailable Augustine Callaway MD Unavailable Brady Lion MD Unavailable Un available Nima France-C Unavailable Camille Chandler PA-C Unavailable [phone] Anabela Barakat APRN TREATING ENGINEER Unavailable Nima France PA-C Unavailable Basilio Morillo DO Unavailable [phone] Fawad [place] MD Unavailable Roopa Almonte MD Unavailable [phone] Augustine Callaway MD Unavailable Maryes Burton PA-C Unavailable Marquita Starkey MD Unavailable Roopa Almonte MD Unavailable Griffin Joshi MD Unavailable Rina Magallon RN Unavailable [phone] Paula Reza MD Primary Care Provider [phone] Griffin Joshi MD Unavailable Roopa Almonte MD Unavailable [phone] Basilio Morillo DO Unavailable Lydia Bernstein-C Unavailable Rosa Maria Love Unavailable [phone] Augustine Callaway MD Unavailable Paula Reza MD Unavailable Keerthi Miner APRN TREATING ENGINEER Unavailable [phone] Herman, Shahida Cummings APRN TREATING ENGINEER Unavailable Un available Porsha Michaels APRN TREATING ENGINEER Unavailable [phone] Paula Reza MD Unavailable Shahida Sutton APRN TREATING ENGINEER Unavailable Un available Daylin Ludwig Unavailable [phone] Laurel Velasquez MD Unavailable [phone] Daylin Ludwig Unavailable [phone] Paula Reza MD Unavailable Porsha Michaels APRN TREATING ENGINEER Unavailable [phone] Laurel Velasquez MD Unavailable [phone] Shahida Sutton MARINE ELECTRONICS REPAIRER TREATING ENGINEER Unavailable Un available Marilin Montaño TREATING ENGINEER Unavailable [phone] Esha Dewitt MD Unavailable [phone] EvelineHeather MD Unavailable [phone] Paula Reza MD Unavailable Esha Dewitt MD Unavailable [phone] Valdo Escamilla PA-C Unavailable Nohelia Abarca PA-C Unavailable [phone] Heather Mosquera MD Unavailable Fawad [place] MD Unavailable Encounter Details Date Type Department Care Team (Late st Contact Info) Description 05/06/2019 [facility] Medical Advice [address] [address] Carolynn Ramon RN Social History Tobacco Use [...] Out COVID-19 02/15/2020 02/15/2020 02/16/2020 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 Rule Out COVID-19 01/05/2021 01/05/2021 01/06/2021 12:57 PM CDT ESBL 01/05/2021 01/05/2021 Rule Out COVID-19 06/30/2021 06/30/2021 07/01/2021 9:34 AM CDT Rule Out COVID-19 07/25/2021 07/25/2021 07/25/2021 8:02 PM CDT Assessment Noted Time PHQ-9 Depression Total Score: 6 12/21/19 18 7:06 AM CDT documented as of this encounter Care Teams Title Curator Relationship Specialty Start Date End Date Shahida Sutton APRN TREATING ENGINEER PCP - General Nurse Practitioner 08/17/14 08/04/21 Paula Reza MD [address] [facility] 200 [place] [address] PCP - General Internal Medicine 08/05/21 Shahida Sutton APRN TREATING ENGINEER Assigned PCP 07/12/14 09/30/21 Carolynn Ramon, KASIE Personal Advocate & Liaison (PAL) 12/17/18 08/07/21 [place] [address] [address] [facility] [address] [place] [address] Assigned Musculoskeletal Provider 12/26/19 08/21/20 Brady Lion MD Assigned Heart and Vascular Provider 12/26/19 08/14/20 Nima France PA-C [address] [facility] [address] [place] [address] Assigned Surgical Provider 05/19/20 08/21/20 Camille Chandler PA-C 65[address] [facility] [address] [place] [address] Assigned Neuroscience Provider 05/19/20 09/14/20 Anabela Barakat APRN TREATING ENGINEER [address] [place] [address] Assigned Heart and Vascular Provider 08/15/20 08/05/21 Nima France PA-C [address] [place] [address] Assigned Musculoskeletal Provider 08/22/20 11/13/20 [place] [address] [facility] [place] [address] Assigned Musculoskeletal Provider 11/14/20 12/04/20 Fawad [place] MD [address] [place], [place] [address] Assigned Musculoskeletal Provider 12/05/20 02/05/21 Roopa Almonte MD [address] [facility] [address] [place] [address] Endocrinology, Diabetes, and Metabolism 01/19/21 [place] [address] [facility] [address] [place] [address] Assigned Musculoskeletal Provider 02/06/21 09/16/21 Maryse Burton PA-C [address] [place] [address] Physician Java Support Engineer Dermatology 04/14/21 Marquita Starkey MD [address] [place] [address] Internal Medicine 05/06/21 05/06/21 Roopa Almonte MD [address] [place] [address] Hospitalist Endocrinology, Diabetes, and Metabolism 05/30/21 Griffin Joshi MD [address] [facility] [address] [place] [address] Cardiovascular Disease 07/25/21 Rina Magallon, RN Lead Regional Sales Trainer 07/29/21 07/11/22 Griffin Joshi MD [address] [facility] [address] [place] [address] Assigned Heart and Vascular Provider 08/06/21 10/07/21 Roopa Almonte MD [address] [place] [address] 200 [place], [place] [address] Assigned Endocrinology Provider 09/10/21 [place] [address] [facility] [place] [address] Assigned Musculoskeletal Provider 09/17/21 10/14/21 Lydia Bernstein PA-C [address] [facility] [address] [place] [address] Assigned PCP 10/01/21 10/21/21 Rosa Maria Love CHW Community Health Worker 10/06/21 07/11/22 [place] [address] [facility] [address] [place] [address] Assigned Musculoskeletal Provider 10/15/21 04/26/23 Paula Reza MD [address] [facility] 200 [place] [address] Assigned PCP 10/22/21 12/23/21 Keerthi Miner APRN TREATING ENGINEER [address] [place] [address] Assigned Heart and Vascular Provider 10/08/21 02/10/22 Shahida Sutton APRN TREATING ENGINEER Assigned PCP 12/24/21 03/24/22 Porsha Michaels MARINE ELECTRONICS REPAIRER TREATING ENGINEER [address] [place] [address] Assigned Heart and Vascular Provider 02/11/22 05/12/22 Paula Reza MD [address] [facility] 200 [place] [address] Assigned PCP 03/25/22 04/07/22 Shahida Sutton APRN TREATING ENGINEER [address] [place] [address] Assigned PCP 04/08/22 06/30/22 Daylin Ludwig EP [facility] [address] [place] [address] Cardiac Rehabilitation Therapist 05/16/23 Laurel Velasquez MD [address] [place] [address] Assigned Heart and Vascular Provider 05/13/22 06/30/22 Daylin Ludwig EP [facility] [address] [place] [address] Cardiac Rehabilitation Therapist 06/08/22 06/09/23 Paula Reza MD [address] [place], [place] [address] Assigned PCP 07/01/22 07/07/22 Porsha Michaels APRN TREATING ENGINEER [address] [place] [address] Assigned Heart and Vascular Provider 07/01/22 07/07/22 Laurel Velasquez MD [address] [place], [place] [address] Assigned Heart and Vascular Provider 07/08/22 08/04/22 Shahida Sutton APRN TREATING ENGINEER Assigned PCP 07/08/22 09/08/22 Marilin Montaño, TREATING ENGINEER [address] [place] [address] Assigned Heart and Vascular Provider 08/05/22 Esha Dewitt MD [address] [place] [address]285 Gastroenterology 09/06/22 Heather Mosquera MD [address] [place] [address] Internal Medicine 09/06/22 Paula Reza MD [address] [place], [place] [address] Assigned PCP 09/09/22 01/05/23 Esha Dewitt MD [address] [place] [id number] Assigned Gastroenterology Provider 09/23/22 Valdo Escamilla PA-C [address] [facility] [address] [place] [address] Assigned Neuroscience Provider 09/30/22 Nohelia Abarca PA-C [address] [place], [place] [address] Physician Java Support Engineer Gastroenterology 10/03/22 Heather Mosquera MD [address]45 [facility] 150 [place] [address] Assigned PCP 01/06/23 Fawad [place] MD [address] [place], [place] [address] Assigned Musculoskeletal Provider 04/27/23 06/25/23 documented as of this encounter
--- OUTSIDE RECORDS SUMMARY | 2023-09-18 13:51 | XMS_ITS | Encounter Summary ---
Author Organization [facility] Address [address] [place] [address] Care Team Providers Care Commercial Truck Driver Name Role Phone Shahida Sutton APRN NIB INSPECTOR Primary Care Provi ford Unavailable Shahida Sutton APRN NIB INSPECTOR Unavailable Un available Carolynn Ramon RN Unavailable Augustine Callaway MD Unavailable Brady Lion MD Unavailable Un available Nima France-C Unavailable Camille Chandler PA-C Unavailable [phone] Anabela Barakat APRN NIB INSPECTOR Unavailable Nima France PA-C Unavailable Basilio Morillo DO Unavailable Fawad [place] MD Unavailable Roopa Almonte MD Unavailable Augustine Callaway MD Unavailable Maryse Burton PA-C Unavailable Marquita Starkey MD Unavailable [phone] Roopa Almonte MD Unavailable Griffin Joshi MD Unavailable Rina Magallon RN Unavailable [phone] Paula Reza MD Primary Care Provider [phone] Griffin Joshi MD Unavailable Roopa Almonte MD Unavailable [phone] Basilio Morillo DO Unavailable Lydia Bernstein-C Unavailable Rosa Maria Love Unavailable [phone] Augustine Callaway MD Unavailable Paula Reza MD Unavailable Keerthi Miner APRN NIB INSPECTOR Unavailable [phone] Herman, Shahida Cummings APRN NIB INSPECTOR Unavailable Un available Porsha Michaels APRN NIB INSPECTOR Unavailable [phone] Paula Reza MD Unavailable Shahida Sutton APRN NIB INSPECTOR Unavailable Un available Daylin Ludwig Unavailable [phone] Laurel Velasquez MD Unavailable [phone] Daylin Ludwig Unavailable [phone] Paula Reza MD Unavailable Porsha Michaels APRN NIB INSPECTOR Unavailable [phone] Laurel Velasquez MD Unavailable [phone] Shahida Sutton SPOT BILLING CLERK NIB INSPECTOR Unavailable Un available Marilin Montaño NIB INSPECTOR Unavailable [phone] Esha Dewitt MD Unavailable [phone] EvelineHeather MD Unavailable [phone] Paula Reza MD Unavailable Esha Dewitt MD Unavailable [phone] Valdo Escamilla PA-C Unavailable [phone] Nohelia Abarca PA-C Unavailable [phone] Heather Mosquera MD Unavailable Fawad [place] MD Unavailable [phone] Encounter Details Date Type Department Care Team (Late st Contact Info) Description 07/16/2019 [facility] Medical Advice [address] [address] Angela Marcelo, CHASE Social History Tobacco Use Types Packs/Day Years [...] Out COVID-19 02/15/2020 02/15/2020 02/16/2020 2:32 PM 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 Rule Out COVID-19 01/05/2021 01/05/2021 01/06/2021 12:57 PM CDT ESBL 01/05/2021 01/05/2021 Rule Out COVID-19 06/30/2021 06/30/2021 07/01/2021 9:34 AM CDT Rule Out COVID-19 07/25/2021 07/25/2021 07/25/2021 8:02 PM CDT Assessment Noted Time PHQ-9 Depression Total Score: 6 12/20/ 18 7:06 AM CDT documented as of this encounter Care Teams Commercial Truck Driver Relationship Specialty Start Date End Date Shahida Sutton APRN NIB INSPECTOR PCP - General Nurse Practitioner 08/17/14 08/04/21 Paula Reza MD [address] [place] [address] PCP - General Internal Medicine 08/05/21 Shahida Sutton APRN NIB INSPECTOR Assigned PCP 07/12/14 09/30/21 Carolynn Ramon, KASIE Personal Advocate & Liaison (PAL) 12/17/18 08/07/21 [place] [address] [place] [address] Assigned Musculoskeletal Provider 12/26/19 08/21/20 Brady Lion MD Assigned Heart and Vascular Provider 12/26/19 08/14/20 Nima France PA-C [address] [facility] [address] [place] [address] Assigned Surgical Provider 05/19/20 08/21/20 Camille Chandler PA-C 6545 [facility] S [facility] [address] [place] [address] Assigned Neuroscience Provider 05/19/20 09/14/20 Anabela Barakat APRN NIB INSPECTOR [address] [place] [address] Assigned Heart and Vascular Provider 08/15/20 08/05/21 Nima France PA-C [address] [place] [address] Assigned Musculoskeletal Provider 08/22/20 11/13/20 [place] [address] [facility] [place] [address] Assigned Musculoskeletal Provider 11/14/20 12/04/20 Fawad [place] MD [address] [place] [address] Assigned Musculoskeletal Provider 12/05/20 02/05/21 Roopa Almonte MD [address] [facility] 200 [place] [address] Endocrinology, Diabetes, and Metabolism 01/19/21 [place] [address] [facility] [address] [place] [address] Assigned Musculoskeletal Provider 02/06/21 09/16/21 Maryse Burton PA-C [address] [place] [address] Physician Structural Steel Equipment Erector Dermatology 04/14/21 Marquita Starkey MD [address] [facility] 200 [place] [address] Internal Medicine 05/06/21 05/06/21 Roopa Almonte MD [address] [facility] 200 [place] [address] Hospitalist Endocrinology, Diabetes, and Metabolism 05/30/21 Griffin Joshi MD 6405 [facility] [address] [place] [address] Cardiovascular Disease 07/25/21 Rina Magallon, RN Lead Hot Water Heater Installer 07/29/21 07/11/22 Griffin Joshi MD [address] [place] [address] Assigned Heart and Vascular Provider 08/06/21 10/07/21 Roopa Almonte MD [address] [facility] 200 [place], [place] [address] Assigned Endocrinology Provider 09/10/21 [place] [address] [facility] [place] [address] Assigned Musculoskeletal Provider 09/17/21 10/14/21 Lydia Bernstein PA-C [address] [place] [address] Assigned PCP 10/01/21 10/21/21 Rosa Maria Love CHW Community Health Worker 10/06/21 07/11/22 [place] [address] [address] [place] [address] Assigned Musculoskeletal Provider 10/15/21 04/26/23 Paula Reza MD [address] [facility] 200 [place] [address] Assigned PCP 10/22/21 12/23/21 Keerthi Miner APRN NIB INSPECTOR [address] [place] [address] Assigned Heart and Vascular Provider 10/08/21 02/10/22 Shahida Sutton APRN NIB INSPECTOR Assigned PCP 12/24/21 03/24/22 Porsha Michaels APRN NIB INSPECTOR [address] [place] [address] Assigned Heart and Vascular Provider 02/11/22 05/12/22 Paula Reza MD [address] [place] [address] Assigned PCP 03/25/22 04/07/22 Shahida Sutton APRN NIB INSPECTOR [address] [place] [address] Assigned PCP 04/08/22 06/30/22 Daylin Ludwig, EP [facility] [address] [place] [address] Cardiac Rehabilitation Therapist 05/16/23 Laurel Velasquez MD [address] [place] [address] Assigned Heart and Vascular Provider 05/13/22 06/30/22 Daylin Ludwig, MIKI [facility] [address] [place] [address] Cardiac Rehabilitation Therapist 06/08/22 06/09/23 Paula Reza MD [address] [place] [address] Assigned PCP 07/01/22 07/07/22 Porsha Michaels APRN NIB INSPECTOR [address] [place] [address] Assigned Heart and Vascular Provider 07/01/22 07/07/22 Laurel Velasquez MD [address] [place] [address] Assigned Heart and Vascular Provider 07/08/22 08/04/22 Shahida Sutton APRN NIB INSPECTOR Assigned PCP 07/08/22 09/08/22 Marilin Montaño, NIB INSPECTOR [address] [place] [address] Assigned Heart and Vascular Provider 08/05/22 Esha Dewitt MD [address] [address] Gastroenterology 09/06/22 Heather Mosquera MD [address] [facility] 150 [place] [address] Internal Medicine 09/06/22 Paula Reza MD [address] [place], [place] [address] Assigned PCP 09/09/22 01/05/23 Esha Dewitt MD [address] [facility] 36 [place] [address] Assigned Gastroenterology Provider 09/23/22 Valdo Escamilla PA-C [address] [facility] [address] [place] [address] Assigned Neuroscience Provider 09/30/22 Nohelia Abarca PA-C [address] [facility] [place] [address] Physician Structural Steel Equipment Erector Gastroenterology 10/03/22 Heather Mosquera MD [address] [place] [address] Assigned PCP 01/06/23 Fawad [place] MD [address] [place], [place] [address] Assigned Musculoskeletal Provider 04/27/23 06/25/23 documented as of this encounter
--- OUTSIDE RECORDS SUMMARY | 2023-09-18 13:51 | XMS_ITS | Encounter Summary ---
Author Organization [facility] Address [address] [place] [address] Care Team Providers Care Sheet Cutting Operator Name Role Phone Shahida Sutton APRN NET MAKING SUPERVISOR Primary Care Provi ford Unavailable Shahida Sutton APRN NET MAKING SUPERVISOR Unavailable Un available Carolynn Ramon RN Unavailable [phone] Augustine Callaway MD Unavailable Brady Lion MD Unavailable Un available Nima France-C Unavailable Camille Chandler PA-C Unavailable [phone] Anabela Barakat APRN NET MAKING SUPERVISOR Unavailable Nima France PA-C Unavailable Basilio Morillo DO Unavailable Fawad York MD Unavailable Roopa Almonte MD Unavailable Augustine Callaway MD Unavailable Maryse Burton PA-C Unavailable Marquita Starkey MD Unavailable [phone] Roopa Almonte MD Unavailable Griffin Joshi MD Unavailable Rina Magallon RN Unavailable [phone] Paula Reza MD Primary Care Provider [phone] Griffin Joshi MD Unavailable Roopa Almonte MD Unavailable [phone] Basilio Morillo DO Unavailable Lydia Bernstein-C Unavailable Rosa Maria Love Unavailable [phone] Augustine Callaway MD Unavailable Paula Reza MD Unavailable Keerthi Miner APRN NET MAKING SUPERVISOR Unavailable [phone] Herman, Shahida Cummings APRN NET MAKING SUPERVISOR Unavailable Un available Porsha Michaels APRN NET MAKING SUPERVISOR Unavailable [phone] Paula Reza MD Unavailable Shahida Sutton APRN NET MAKING SUPERVISOR Unavailable Un available Dalyin Ludwig Unavailable [phone] Laurel Velasquez MD Unavailable [phone] Daylin Ludwig Unavailable [phone] Paula Reza MD Unavailable Porsha Michaels APRN NET MAKING SUPERVISOR Unavailable [phone] Laurel Velasquez MD Unavailable [phone] Shahida Sutton GENERAL ADMINISTRATOR NET MAKING SUPERVISOR Unavailable Un available Marilin Montaño NET MAKING SUPERVISOR Unavailable [phone] Esha Dewitt MD Unavailable [phone] EvelineHeather MD Unavailable [phone] Paula Reza MD Unavailable Esha Dewitt MD Unavailable [phone] Valdo Escamilla PA-C Unavailable [phone] Nohelia Abarca PA-C Unavailable [phone] Heather Mosquera MD Unavailable Fawad York MD Unavailable [phone] Reason for Visit * Reason Onset Date Comments Referral 09/02/2019 New Eval Encounter Details Date Type Department Care Team (Late st Contact Info) Description 09/02/2019 Telephone [facility] [place] [address] [facility] [address] [place] [address] [facility] Social History Tobacco Use Types Packs/Day [...] have Coronavirus / COVID-19? No / Unsure 08/21/2019 9:31 AM CDT documented as of this encounter Miscellaneous Notes * Telephone Encounter - Amberly Nunez - 09/12/2019 1:48 PM CDT Pt called back to schedule New Eval. Referral Diagnosis: Acute right-sided low back pain with right-sided sciatica [M54.41] ??- Primary Informed pt of our Policy of 3 month or longer for Chronic Pain. Pt understood and hung up. Amberly Nam School Bus Driver/Mechanic [facility] [place] * Telephone Encounter - Fabiola Teixeira - 09/02/2019 12:43 PM CDT LVM to schedule new eval Fabiola Teixeira School Bus Driver/Mechanic [facility] documented in this encounter Plan of Treatment Not on file documented as of this encounter Visit Diagnoses Not on filedocumented in this encounter Additional Health Concerns Infection Onset Date Last Indicated Resolved Time Rule Out COVID-19 02/15/2020 02/15/2020 02/16/2020 2:32 PM LOW VISION THERAPIST Rule Out COVID-19 01/05/2021 01/05/2021 01/06/2021 12:57 PM CDT ESBL 01/05/2021 01/05/2021 Rule Out COVID-19 06/30/2021 06/30/2021 07/01/2021 9:34 AM CDT Rule Out COVID-19 07/25/2021 07/25/2021 07/25/2021 8:02 PM CDT Assessment Noted Time PHQ-9 Depression Total Score: 7 08/13/19 20 1:22 PM CDT documented as of this encounter Care Teams Sheet Cutting Operator Relationship Specialty Start Date End Date Shahida Sutton APRN NET MAKING SUPERVISOR PCP - General Nurse Practitioner 08/17/14 08/04/21 Paula Reza MD [address] [facility] [address] [place] [address] PCP - General Internal Medicine 08/05/21 Shahida Sutton APRN NET MAKING SUPERVISOR Assigned PCP 07/12/14 09/30/21 Carolynn Ramon, KASIE Personal Advocate & Liaison (PAL) 12/17/18 08/07/21 [place] [address] [facility] [place] [address] Assigned Musculoskeletal Provider 12/26/19 08/21/20 Brady Lion MD Assigned Heart and Vascular Provider 12/26/19 08/14/20 Nima France PA-C [address] [facility] [address] [place] [address] Assigned Surgical Provider 05/19/20 08/21/20 Camille Chandler PA-C [address] [facility] [address] [facility] [address] [place] [address] Assigned Neuroscience Provider 05/19/20 09/14/20 Anabela Barakat APRN NET MAKING SUPERVISOR [address] [place] [address] Assigned Heart and Vascular Provider 08/15/20 08/05/21 Nima France PA-C [address] [facility] [address] [place] [address] Assigned Musculoskeletal Provider 08/22/20 11/13/20 [place] [address] [facility] [place] 761239 Assigned Musculoskeletal Provider 11/14/20 12/04/20 Fawad York MD [address] [place], [place] [address] Assigned Musculoskeletal Provider 12/05/20 02/05/21 Roopa Almonte MD [address] [facility] 200 [place] [address] Endocrinology, Diabetes, and Metabolism 01/19/21 [place] [address] [facility] [address] [place] [address] Assigned Musculoskeletal Provider 02/06/21 09/16/21 Maryse Burton PA-C [address] [place] [address] Physician Wood Treating Inspector Dermatology 04/14/21 Marquita Starkey MD [address] [facility] [address] [place], [place] [address] Internal Medicine 05/06/21 05/06/21 Roopa Almonte MD [address] [facility] [address] [place], [place] [address] Hospitalist Endocrinology, Diabetes, and Metabolism 05/30/21 Griffin Joshi MD [address] [facility] [address] [place] [address] Cardiovascular Disease 07/25/21 Rina Magallon, RN Lead Artificial Flowers Starcher 07/29/21 07/11/22 Griffin Joshi MD [address] [facility] [address] [place] [address] Assigned Heart and Vascular Provider 08/06/21 10/07/21 Roopa Almonte MD [address] [facility] [address] [place], [place] [address] Assigned Endocrinology Provider 09/10/21 [place] [address] [facility] [place] [address] Assigned Musculoskeletal Provider 09/17/21 10/14/21 Lydia Bernstein PA-C [address] [place] [address] Assigned PCP 10/01/21 10/21/21 Rosa Maria Love CHW Community Health Worker 10/06/21 07/11/22 [place] [address] [place] [address] Assigned Musculoskeletal Provider 10/15/21 04/26/23 Paula Reza MD [address] [place] [address] Assigned PCP 10/22/21 12/23/21 Keerthi Miner APRN NET MAKING SUPERVISOR [address] [place] [address] Assigned Heart and Vascular Provider 10/08/21 02/10/22 Shahida Sutton APRN NET MAKING SUPERVISOR Assigned PCP 12/24/21 03/24/22 Porsha Michaels APRN NET MAKING SUPERVISOR [address] [place] [address] Assigned Heart and Vascular Provider 02/11/22 05/12/22 Paula Reza MD [address] [place] [address] Assigned PCP 03/25/22 04/07/22 Shahida Sutton APRN NET MAKING SUPERVISOR [address] [place] [address] Assigned PCP 04/08/22 06/30/22 Daylin Ludwig, MIKI [facility] [address] [place] [address] Cardiac Rehabilitation Therapist 05/16/23 Laurel Velasquez MD [address] [place] [address] Assigned Heart and Vascular Provider 05/13/22 06/30/22 Daylin Ludwig, MIKI [facility] [address] [place], [place] [address] Cardiac Rehabilitation Therapist 06/08/22 06/09/23 Paula Reza MD [address] 843427 Assigned PCP 07/01/22 07/07/22 Porsha Michaels APRN NET MAKING SUPERVISOR [address] [place] [address] Assigned Heart and Vascular Provider 07/01/22 07/07/22 Laurel Velasquez MD [address] [place] [address] Assigned Heart and Vascular Provider 07/08/22 08/04/22 Shahida Sutton, DUANE NET MAKING SUPERVISOR Assigned PCP 07/08/22 09/08/22 Marilin Montaño, NET MAKING SUPERVISOR [address] [place] [address] Assigned Heart and Vascular Provider 08/05/22 Esha Dewitt MD [address] [address] MD Gastroenterology 09/06/22 Heather Mosquera MD [address] [place] [address] Internal Medicine 09/06/22 Paula Reza MD [address] [facility] [address] [place] [address] Assigned PCP 09/09/22 01/05/23 Esha Dewitt MD [address] [address] Assigned Gastroenterology Provider 09/23/22 Valdo Escamilla PA-C [address] [facility] [address] [place] [address] Assigned Neuroscience Provider 09/30/22 Nohelia Abarca PA-C [address] [place] [address] Physician Wood Treating Inspector Gastroenterology 10/03/22 Heather Mosquera MD [address] [place], [place] [address] Assigned PCP 01/06/23 Fawad York MD [address] [place], [place] [address] Assigned Musculoskeletal Provider 04/27/23 06/25/23 documented as of this encounter
--- OUTSIDE RECORDS SUMMARY | 2023-09-18 13:51 | XMS_ITS | Encounter Summary ---
Author Organization [facility] Address [address] [place] [address] Care Team Providers Care Pilot Name Role Phone Shahida Sutton APRN SECURITY ATTENDANT Primary Care Provi ford Unavailable Shahida Sutton APRN SECURITY ATTENDANT Unavailable Un available Carolynn Ramon RN Unavailable [phone] Augustine Callaway MD Unavailable Brady Lion MD Unavailable Un available Nima France-C Unavailable Camille Chandler PA-C Unavailable [phone] Anabela Barakat APRN SECURITY ATTENDANT Unavailable Nima France PA-C Unavailable Basilio Morillo DO Unavailable Fawad York MD Unavailable Roopa Almonte MD Unavailable Augustine Callaway MD Unavailable Maryse Burton PA-C Unavailable Marquita Starkey MD Unavailable Roopa Almonte MD Unavailable Griffin Joshi MD Unavailable Rina Magallon RN Unavailable [phone] Paula Reza MD Primary Care Provider [phone] Griffin Joshi MD Unavailable Roopa Almonte MD Unavailable [phone] Basilio Morillo DO Unavailable Lydia Bernstein-C Unavailable Rosa Maria Love Unavailable [phone] Augustine Callaway MD Unavailable Paula Reza MD Unavailable Keerthi Miner APRN SECURITY ATTENDANT Unavailable [phone] Herman, Shahida Cummings APRN SECURITY ATTENDANT Unavailable Un available Porsha Michaels APRN SECURITY ATTENDANT Unavailable [phone] Paula Reza MD Unavailable Shahida Sutton APRN SECURITY ATTENDANT Unavailable Un available Daylin Ludwig Unavailable [phone] Laurel Velasquez MD Unavailable [phone] Daylin Ludwig Unavailable [phone] Paula Reza MD Unavailable Porsha Michaels APRN SECURITY ATTENDANT Unavailable [phone] Laurel Velasquez MD Unavailable [phone] Shahida Sutton GEOLOGICAL DRAFTER SECURITY ATTENDANT Unavailable Un available Marilin Montaño SECURITY ATTENDANT Unavailable [phone] Esha Dewitt MD Unavailable [phone] EvelineHeather MD Unavailable [phone] Paula Reza MD Unavailable Esha Dewitt MD Unavailable [phone] Andi Valdo Desouza PA-C Unavailable [phone] Nohelia Abarca PA-C Unavailable [phone] Heather oMsquera MD Unavailable [phone] Fawad York MD Unavailable Encounter Details Date Type Department Care Team (Late st Contact Info) Description 06/27/[address] [phone] Shahida Sutton APRN SECURITY ATTENDANT Social History Tobacco Use Types Packs/Day Years [...] Out COVID-19 02/15/2020 02/15/2020 02/16/2020 2:32 PM 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 Rule Out COVID-19 01/05/2021 01/05/2021 01/06/2021 12:57 PM CDT ESBL 01/05/2021 01/05/2021 Rule Out COVID-19 06/30/2021 06/30/2021 07/01/2021 9:34 AM CDT Rule Out COVID-19 07/25/2021 07/25/2021 07/25/2021 8:02 PM CDT Assessment Noted Time PHQ-9 Depression Total Score: 6 12/21/19 18 7:06 AM CDT documented as of this encounter Care Teams Pilot Relationship Specialty Start Date End Date Shahida Sutton APRN SECURITY ATTENDANT PCP - General Nurse Practitioner 08/17/14 08/04/21 Paula Reza MD [address] [facility] [address] [place] [address] PCP - General Internal Medicine 08/05/21 Shahida Sutton APRN SECURITY ATTENDANT Assigned PCP 07/12/14 09/30/21 Carolynn Ramon, AKSIE Personal Advocate & Liaison (PAL) 12/17/18 08/07/21 [place] [address] [place] [address] Assigned Musculoskeletal Provider 12/26/19 08/21/20 Brady Lion MD Assigned Heart and Vascular Provider 12/26/19 08/14/20 Nima France PA-C [address] [facility] [address] [place] [address] Assigned Surgical Provider 05/19/20 08/21/20 Camille Chandler PA-C [address] [facility] [address] [place] [address] Assigned Neuroscience Provider 05/19/20 09/14/20 Anabela Barakat APRN SECURITY ATTENDANT [address] [place] [address] Assigned Heart and Vascular Provider 08/15/20 08/05/21 Nima France PA-C [address] [facility] [address] [place] [address] Assigned Musculoskeletal Provider 08/22/20 11/13/20 [place] [address] [facility] [place] [address] Assigned Musculoskeletal Provider 11/14/20 12/04/20 Fawad York MD [address] [place], [place] [address] Assigned Musculoskeletal Provider 12/05/20 02/05/21 Roopa Almonte MD [address] [facility] [address] [place] [address] Endocrinology, Diabetes, and Metabolism 01/19/21 [place] [address] [facility] 300 [place] [address] Assigned Musculoskeletal Provider 02/06/21 09/16/21 Maryse Burton, PA-C [address] [place] [address] Physician Commercial Sales Manager Dermatology 04/14/21 Marquita Starkey MD [address] [facility] 200 [place] [address] Internal Medicine 05/06/21 05/06/21 Roopa Almonte MD [address] [facility] 200 [place] [address] Hospitalist Endocrinology, Diabetes, and Metabolism 05/30/21 Griffin Joshi MD [address] [facility] [address] [place] [address] Cardiovascular Disease 07/25/21 Rina Magallon, RN Lead Director Account Management 07/29/21 07/11/22 Griffin Joshi MD [address] [place] [address] Assigned Heart and Vascular Provider 08/06/21 10/07/21 Roopa Almonte MD [address] [facility] [address] [place], [place] [address] Assigned Endocrinology Provider 09/10/21 [place] [address] [facility] [place] [address]49 Assigned Musculoskeletal Provider 09/17/21 10/14/21 Lydia Bernstein PA-C [address] [place] [address] Assigned PCP 10/01/21 10/21/21 Rosa Maria Love CHW Community Health Worker 10/06/21 07/11/22 [place] [address] [facility] [address] [place] [address] Assigned Musculoskeletal Provider 10/15/21 04/26/23 Paula Reza MD [address] [facility] [address] [place] [address] Assigned PCP 10/22/21 12/23/21 Keerthi Miner APRN SECURITY ATTENDANT [address] [place] [address] Assigned Heart and Vascular Provider 10/08/21 02/10/22 Shahida Sutton APRN SECURITY ATTENDANT Assigned PCP 12/24/21 03/24/22 Porsha Michaels APRN SECURITY ATTENDANT [address] [place] [address] Assigned Heart and Vascular Provider 02/11/22 05/12/22 Paula Reza MD [address] [place] [address] Assigned PCP 03/25/22 04/07/22 Shahida Sutton APRN SECURITY ATTENDANT [address] [place] [address] Assigned PCP 04/08/22 06/30/22 Daylin Ludwig, EP [facility] [address] [place] [address] Cardiac Rehabilitation Therapist 05/16/23 Laurel Velasquez MD [address] [place] [address] Assigned Heart and Vascular Provider 05/13/22 06/30/22 Daylin Ludwig, EP [facility] [address] [place] [address] Cardiac Rehabilitation Therapist 06/08/22 06/09/23 Paula Reza MD [address] [place] [address] Assigned PCP 07/01/22 07/07/22 Porsha Michaels APRN SECURITY ATTENDANT [address] [place] [address] Assigned Heart and Vascular Provider 07/01/22 07/07/22 Laurel Velasquez MD [address] [place] [address] Assigned Heart and Vascular Provider 07/08/22 08/04/22 Shahida Sutton APRN SECURITY ATTENDANT Assigned PCP 07/08/22 09/08/22 Marilin Montaño, SECURITY ATTENDANT [address] [place] [address] Assigned Heart and Vascular Provider 08/05/22 Esha Dewitt MD [address] [place] [address] Gastroenterology 09/06/22 Heather Mosquera MD [address] [facility] [address] [place] [address] Internal Medicine 09/06/22 Paula Reza MD [address] [place], [place] [address] Assigned PCP 09/09/22 01/05/23 Esha Dewitt MD [address] [address] Assigned Gastroenterology Provider 09/23/22 Valdo Escamilla PA-C [address] [facility] [address] [place] [address] Assigned Neuroscience Provider 09/30/22 Nohelia Abarca PA-C [address] [place], [place] [address] Physician Commercial Sales Manager Gastroenterology 10/03/22 Heather Mosquera MD [address] [place] [address] Assigned PCP 01/06/23 Fawad York MD [address] [place], [place] [address] Assigned Musculoskeletal Provider 04/27/23 06/25/23 documented as of this encounter
--- OUTSIDE RECORDS SUMMARY | 2023-09-18 13:51 | XMS_ITS | Encounter Summary ---
Author Organization [facility] Address [address] [place] [address] Care Team Providers Care Mrb Engineer Name Role Phone Shahida Sutton APRN STATIONARY FIREMAN Primary Care Provi ford Unavailable Shahida Sutton APRN STATIONARY FIREMAN Unavailable Un available Carolynn Ramon RN Unavailable Augustine Callaway MD Unavailable Brady Lion MD Unavailable Un available Nima France-C Unavailable Camille Chandler PA-C Unavailable [phone] Anabela Barakat APRN STATIONARY FIREMAN Unavailable Nima France PA-C Unavailable Basilio Morillo DO Unavailable [phone] Fawad York MD Unavailable Roopa Almonte MD Unavailable Augustine Callaway MD Unavailable Maryse Burton PA-C Unavailable Marquita Starkey MD Unavailable Roopa Almonte MD Unavailable Griffin Joshi MD Unavailable Rina Magallon RN Unavailable [phone] Paula Reza MD Primary Care Provider [phone] Griffin Joshi MD Unavailable Roopa Almonte MD Unavailable [phone] Basilio Morillo DO Unavailable Lydia Bernstein-C Unavailable Rosa Maria Love Unavailable [phone] Augustine Callaway MD Unavailable Paula Reza MD Unavailable Keerthi Miner APRN STATIONARY FIREMAN Unavailable [phone] Herman, Shahida Cummings APRN STATIONARY FIREMAN Unavailable Un available Porsha Michaels APRN STATIONARY FIREMAN Unavailable [phone] Paula Reza MD Unavailable Shahida Sutton APRN STATIONARY FIREMAN Unavailable Un available Daylin Ludwig Unavailable [phone] Laurel Velasquez MD Unavailable [phone] Daylin Ludwig Unavailable [phone] Paula Reza MD Unavailable Porsha Michaels APRN STATIONARY FIREMAN Unavailable [phone] Laurel Velasquez MD Unavailable [phone] Shahida Sutton DIGITAL MEDIA DIRECTOR STATIONARY FIREMAN Unavailable Un available Marilin Montaño STATIONARY FIREMAN Unavailable [phone] Esha Dewitt MD Unavailable [phone] EvelineHeather MD Unavailable [phone] Paula Reza MD Unavailable Esha Dewitt MD Unavailable [phone] Valdo Escamilla PA-C Unavailable [phone] Nohelia Abarca PA-C Unavailable [phone] Heather Mosquera MD Unavailable [phone] Fawad York MD Unavailable [phone] Encounter Details Date Type Department Care Team (Late st Contact Info) Description 02/10/2020 [facility] [address] [place] [id number] Rina Winkler RN Social History Tobacco Use Types Packs/Day [...] COVID-19? 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 Rule Out COVID-19 01/05/2021 01/05/2021 01/06/2021 12:57 PM CDT ESBL 01/05/2021 01/05/2021 Rule Out COVID-19 06/30/2021 06/30/2021 07/01/2021 9:34 AM CDT Rule Out COVID-19 07/25/2021 07/25/2021 07/25/2021 8:02 PM CDT Assessment Noted Time PHQ-9 Depression Total Score: 7 08/13/19 20 1:22 PM CDT documented as of this encounter Care Teams Mrb Engineer Relationship Specialty Start Date End Date Shahida Sutton APRN STATIONARY FIREMAN PCP - General Nurse Practitioner 08/17/14 08/04/21 Paula Reza MD [address] [facility] [address] [place] [address] PCP - General Internal Medicine 08/05/21 Shahida Sutton APRN STATIONARY FIREMAN Assigned PCP 07/12/14 09/30/21 Carolynn Ramon RN Personal Advocate & Liaison (PAL) 12/17/18 08/07/21 [place] [address] [place] [address] Assigned Musculoskeletal Provider 12/26/19 08/21/20 Brady Lion MD Assigned Heart and Vascular Provider 12/26/19 08/14/20 Nima France PA-C [address] [place] [address] Assigned Surgical Provider 05/19/20 08/21/20 Camille Chandler PA-C [address] [place] [address] Assigned Neuroscience Provider 05/19/20 09/14/20 Anabela Barakat APRN STATIONARY FIREMAN [address] [place] [address] Assigned Heart and Vascular Provider 08/15/20 08/05/21 Nima France PA-C [address] [facility] [address] [place] [address] Assigned Musculoskeletal Provider 08/22/20 11/13/20 [place] [address] [facility] [place], [place] [address]99 Assigned Musculoskeletal Provider 11/14/20 12/04/20 Fawad York MD [address] [place], [place] [address] Assigned Musculoskeletal Provider 12/05/20 02/05/21 Roopa Almonte MD [address] [facility] [address] [place] [address] Endocrinology, Diabetes, and Metabolism 01/19/21 [place] [address] [facility] [address] [place] [address] Assigned Musculoskeletal Provider 02/06/21 09/16/21 Maryse Burton PA-C [address] [place] [address] Physician Lathe Sander Dermatology 04/14/21 Marquita Starkey MD [address] [facility] [address] [place], [place] [address] Internal Medicine 05/06/21 05/06/21 Roopa Almonte MD [address] [facility] [address] [place], [place] [address] Hospitalist Endocrinology, Diabetes, and Metabolism 05/30/21 Griffin Joshi MD [address] [facility] [address] [place] [address] Cardiovascular Disease 07/25/21 Rina Magallon, RN Lead Box Sealing Machine Feeder 07/29/21 07/11/22 Griffin Joshi MD [address] [place] [address] Assigned Heart and Vascular Provider 08/06/21 10/07/21 Roopa Almonte MD [address] [facility] [address] [place] [address] Assigned Endocrinology Provider 09/10/21 [place] [address] [place] [address] Assigned Musculoskeletal Provider 09/17/21 10/14/21 Lydia Bernstein PA-C [address] [facility] [address] [place] [address] Assigned PCP 10/01/21 10/21/21 Rosa Maria Love CHW Community Health Worker 10/06/21 07/11/22 [place] [address] [address] [facility] [address] [place] [address] Assigned Musculoskeletal Provider 10/15/21 04/26/23 Paula Reza MD [address] [place] [address] Assigned PCP 10/22/21 12/23/21 Keerthi Miner APRN STATIONARY FIREMAN [address] [place] [address] Assigned Heart and Vascular Provider 10/08/21 02/10/22 Shahida Sutton APRN STATIONARY FIREMAN Assigned PCP 12/24/21 03/24/22 Porsha Michaels APRN STATIONARY FIREMAN [address] [place] [address] Assigned Heart and Vascular Provider 02/11/22 05/12/22 Paula Reza MD [address] [place] [address] Assigned PCP 03/25/22 04/07/22 Shahida Sutton APRN STATIONARY FIREMAN [address] [place] [address] Assigned PCP 04/08/22 06/30/22 Daylin Ludwig, EP [facility] [address] [place] [address] Cardiac Rehabilitation Therapist 05/16/23 Laurel Velasquez MD [address] [place] [address] Assigned Heart and Vascular Provider 05/13/22 06/30/22 Daylin Ludwig, EP [facility] [address] [place] [address] Cardiac Rehabilitation Therapist 06/08/22 06/09/23 Paula Reza MD [address] [place], [place] [address]87 Assigned PCP 07/01/22 07/07/22 Porsha Michaels APRN STATIONARY FIREMAN [address] [place] [address] Assigned Heart and Vascular Provider 07/01/22 07/07/22 Laurel Velasquez MD [address] [place] [address] Assigned Heart and Vascular Provider 07/08/22 08/04/22 Shahida Sutton APRN STATIONARY FIREMAN Assigned PCP 07/08/22 09/08/22 Marilin Montaño, STATIONARY FIREMAN [address] [place] [address] Assigned Heart and Vascular Provider 08/05/22 Esha Dewitt MD [address] [place] [address] Gastroenterology 09/06/22 Heather Mosquera MD [address] [place] [address] Internal Medicine 09/06/22 Paula Reza MD [address] [place] [address] Assigned PCP 09/09/22 01/05/23 Esha Dewitt MD [address] [facility] 36 [place], [place] [address] Assigned Gastroenterology Provider 09/23/22 Valdo Escamilla PA-C [address] [facility] [address] [place] [address] Assigned Neuroscience Provider 09/30/22 Nohelia Abarca PA-C [address] [address] Physician Lathe Sander Gastroenterology 10/03/22 Heather Mosquera MD [address] [place] [address] Assigned PCP 01/06/23 Fawad York MD [address] [place], [place] [address] Assigned Musculoskeletal Provider 04/27/23 06/25/23 documented as of this encounter
--- OUTSIDE RECORDS SUMMARY | 2023-09-18 13:51 | XMS_ITS | Encounter Summary ---
Author Organization [facility] Address [address] [place] [address] Care Team Providers Care Blindstitch Lining Feller Name Role Phone Shahida Sutton APRN ICE SKATER Primary Care Provi ford Unavailable Shahida Sutton APRN ICE SKATER Unavailable Un available Carolynn Ramon RN Unavailable Augustine Callaway MD Unavailable Brady Lion MD Unavailable Un available Nima France-C Unavailable Camille Chandler PA-C Unavailable [phone] Anabela Barakat APRN ICE SKATER Unavailable Nima France PA-C Unavailable Basilio Morillo DO Unavailable Fawad York MD Unavailable Roopa Almonte MD Unavailable [phone] Augustine Callaway MD Unavailable Maryse Burton PA-C Unavailable Marquita Starkey MD Unavailable [phone] Roopa Almonte MD Unavailable Griffin Joshi MD Unavailable Rina Magallon RN Unavailable [phone] Paula Reza MD Primary Care Provider [phone] Griffin Joshi MD Unavailable Roopa Almonte MD Unavailable [phone] Basilio Morillo DO Unavailable Lydia Bernstein-C Unavailable Rosa Maria Love Unavailable [phone] Augustine Callaway MD Unavailable Paula Reza MD Unavailable Keerthi Miner APRN ICE SKATER Unavailable [phone] Herman, Shahida Cummings APRN ICE SKATER Unavailable Un available Porsha Michaels APRN ICE SKATER Unavailable [phone] Paula Reza MD Unavailable Shahida Sutton APRN ICE SKATER Unavailable Un available Daylin Ludwig Unavailable [phone] Laurel Velasquez MD Unavailable [phone] Daylin Ludwig Unavailable [phone] Paula Reza MD Unavailable Porsha Michaels APRN ICE SKATER Unavailable [phone] Laurel Velasquez MD Unavailable [phone] Shahida Sutton WOODS WARDEN ICE SKATER Unavailable Un available Marilin Montaño ICE SKATER Unavailable [phone] Esha Dewitt MD Unavailable [phone] EvelineHeather MD Unavailable [phone] Paula Reza MD Unavailable Esha Dewitt MD Unavailable [phone] Andi Valdo Desouza PA-C Unavailable Nohelia Abarca PA-C Unavailable [phone] Heather Mosquera MD Unavailable Fawad York MD Unavailable Reason for Visit * Reason Onset Date Comments Medication Question 06/27/2019 SE of botox neck pain and spasms Encounter Details Date Type Department Care Team (Late st Contact Info) Description 06/27/[address] [phone] Shahida Sutton APRN CNP Medication Question (SE of botox neck pain and spasms) Social History Tobacco Use Types Packs/Day Years [...] Telephone Encounter - Carolynn Ramon RN - 06/30/2019 8:31 AM CDT Shahida Sutton APRN ICE SKATER Please see update below Neck spasms - patient was able to talk with his neurologist on Sunday and they advised him that the symptoms he was having were normal and would subside. Patient states symptoms have mostly resolved. Back Pain - Continues with back pain. Using cyclobenzaprine and tramadol and some times these work and other times not so much. Doing daily activities is very hard due to back pain. Tries to balance movement/rest. Diabetes - Patient has been monitoring blood sugar with free style julian. Readings are almost always under 200, and frequently down to 110 range Nausea/Vomiting - Symptoms have mostly resolved, however some days still has nausea. Patient feels this was a side effect of Ozempic and was delayed reaction. Continues to take this and symptoms have gotten much better, able to tolerate. Patient does see a change in blood glucose numbers since starting to take this medication Patient will call if questions/concerns arise - RN advised patient that after Covid 19 precautions are lifted pcp would like to see him in clinic Carolynn Ramon Registered Nurse [facility] * Telephone Encounter - Shahida Sutton APRN CNP - 06/29/2019 7:25 PM CDT Carolynn, Please call Mauro and see how his pain is today, forward to me if it has not improved. Thanks, Shahida Sutton CNP * Telephone Encounter - Carmen Jacinto RN - 06/27/2019 10:06 AM CDT S-(situation):Painful muscle spasms in neck and spasms when dry swallow or swallowing little bits of liquids. Dry mouth. B-(background):Botox inj for migraines one week ago. A-(assessment):pt states pain is not relieved by tylenol or ultram it seems to spasm when he swallows. He rates his pain at 7 of 10 and it is constant with sharp pain with the spasms. Pt does not feel like he is choking and his airway is not compromised. Eating solid food is not a problem. Pt did call his neurologist and they stated to wait it out and if it should get worse to go to the ER. Pt states they would not address his pain/spasms issue of his neck muscles. R-(recommendations):Noted this is a common SE of botox. Recommended warm moist heat on site. Will huddle with primary for further recommendations. Carmen Jacinto RN * Telephone Encounter - Christianne Tejada - 06/27/2019 9:35 AM CDT Symptoms Describe your symptoms: Pt had gotten Botox for migraines about a week ago. Now pt is having stiffness of neck, which can be pain, difficulties swallowing as well. Pt stated that these seem to be common side effects from this treatment and did call his neurologist, who didn't help him. Any pain: Yes: in neck How long have you been having symptoms: 3 days Have you been seen for this: No Appointment offered?: No Triage offered?: Yes: but all nurses busy Home remedies tried: N/a Requested Pharmacy: N/a Okay to leave a detailed message? 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 Rule Out COVID-19 01/05/2021 01/05/2021 01/06/2021 12:57 PM CDT ESBL 01/05/2021 01/05/2021 Rule Out COVID-19 06/30/2021 06/30/2021 07/01/2021 9:34 AM CDT Rule Out COVID-19 07/25/2021 07/25/2021 07/25/2021 8:02 PM CDT Assessment Noted Time PHQ-9 Depression Total Score: 6 12/21/19 18 7:06 AM CDT documented as of this encounter Care Teams Blindstitch Lining Feller Relationship Specialty Start Date End Date Shahida Sutton APRN ICE SKATER PCP - General Nurse Practitioner 08/17/14 08/04/21 Paula Reza MD [address] [address] PCP - General Internal Medicine 08/05/21 Shahida Sutton APRN ICE SKATER Assigned PCP 07/12/14 09/30/21 Carolynn Ramon, KASIE Personal Advocate & Liaison (PAL) 12/17/18 08/07/21 [place] [address] [place] [address] Assigned Musculoskeletal Provider 12/26/19 08/21/20 Brady Lion MD Assigned Heart and Vascular Provider 12/26/19 08/14/20 Nima France PA-C [address] [place] [address] Assigned Surgical Provider 05/19/20 08/21/20 Camille Chandler PA-C [address] [place] [address] Assigned Neuroscience Provider 05/19/20 09/14/20 Anabela Barakat APRN ICE SKATER [address] [place] [address] Assigned Heart and Vascular Provider 08/15/20 08/05/21 Nima France PA-C [address] [place] [address] Assigned Musculoskeletal Provider 08/22/20 11/13/20 [place] [address] [facility] [place] [address] Assigned Musculoskeletal Provider 11/14/20 12/04/20 Fawad York MD [address] [place], [place] [address] Assigned Musculoskeletal Provider 12/05/20 02/05/21 Roopa Almonte MD [address] [facility] [address] [place] [address] Endocrinology, Diabetes, and Metabolism 01/19/21 [place] [address] [facility] [address] [place] [address] Assigned Musculoskeletal Provider 02/06/21 09/16/21 Maryse Burton PA-C [address] [place] [address] Physician Blender Helper Dermatology 04/14/21 Marquita Starkey MD [address] [facility] [address] [place] [address] Internal Medicine 05/06/21 05/06/21 Roopa Almonte MD [address] [facility] [address] [place] [address] Hospitalist Endocrinology, Diabetes, and Metabolism 05/30/21 Griffin Joshi MD [address] [place] [address] Cardiovascular Disease 07/25/21 Rina Magallon, RN Lead Head Grease Maker 07/29/21 07/11/22 Griffin Joshi MD [address] [place] [address] Assigned Heart and Vascular Provider 08/06/21 10/07/21 Roopa Almonte MD [address] [place] [address] 200 [place], [place] [address] Assigned Endocrinology Provider 09/10/21 [place] [address] [facility] [place] [address] Assigned Musculoskeletal Provider 09/17/21 10/14/21 Lydia Bernstein PA-C [address] [place] [address] Assigned PCP 10/01/21 10/21/21 Rosa Maria Love Cristina Community Health Worker 10/06/21 07/11/22 [place] [address] [facility] [address] [place], [place] [address] Assigned Musculoskeletal Provider 10/15/21 04/26/23 Paula Reza MD [address] [facility] [address] [place], [place] [address] Assigned PCP 10/22/21 12/23/21 Keerthi Miner APRN ICE SKATER [address] [place] [address] Assigned Heart and Vascular Provider 10/08/21 02/10/22 Shahida Sutton APRN ICE SKATER Assigned PCP 12/24/21 03/24/22 Porsha Michaels APRN ICE SKATER [address] [place] [address] Assigned Heart and Vascular Provider 02/11/22 05/12/22 Paula Reza MD [address] [place] [address] Assigned PCP 03/25/22 04/07/22 Shahida Sutton, WOODS WARDEN ICE SKATER [address] [place] [address] Assigned PCP 04/08/22 06/30/22 Daylin Ludwig EP [facility] [address] [place] [address] Cardiac Rehabilitation Therapist 05/16/23 Laurel Velasquez MD [address] [place] [address] Assigned Heart and Vascular Provider 05/13/22 06/30/22 Daylin Ludwig EP [facility] [address] [place] [address] Cardiac Rehabilitation Therapist 06/08/22 06/09/23 Paula Reza MD [address] [place] [address] Assigned PCP 07/01/22 07/07/22 Porsha Michaels APRN ICE SKATER [address] [place] [address] Assigned Heart and Vascular Provider 07/01/22 07/07/22 Laurel Velasquez MD [address] [place] [address] Assigned Heart and Vascular Provider 07/08/22 08/04/22 Shahida Sutton APRN ICE SKATER Assigned PCP 07/08/22 09/08/22 Marilin Montaño, ICE SKATER [address] [place] [address] Assigned Heart and Vascular Provider 08/05/22 Esha Dewitt MD [address] [address] Gastroenterology 09/06/22 Heather Mosquera MD [address] [place] [address] Internal Medicine 09/06/22 Paula Reza MD [address] [facility] 200 [place] [address] Assigned PCP 09/09/22 01/05/23 Esha Dewitt MD 420 [facility] 36 [place] [address] Assigned Gastroenterology Provider 09/23/22 Valdo Esacmilla PA-C [address] [facility] [address] [place] [address] Assigned Neuroscience Provider 09/30/22 Nohelia Abarca PA-C [address] [place], [place] [address] Physician Blender Helper Gastroenterology 10/03/22 Heather Mosquera MD [address] [address] Assigned PCP 01/06/23 Fawad York MD [address] [place], [place] [address] Assigned Musculoskeletal Provider 04/27/23 06/25/23 documented as of this encounter
--- OUTSIDE RECORDS SUMMARY | 2023-09-18 13:51 | XMS_ITS | Encounter Summary ---
Author Organization [facility] Address [address] [place] [address] Care Team Providers Care Soaker Meat Name Role Phone Shahida Sutton APRN CASH GRAIN GROWER Primary Care Provi ford Unavailable Shahida Sutton APRN CASH GRAIN GROWER Unavailable Un available Carolynn Ramon RN Unavailable Augustine Callaway MD Unavailable Brady Lion MD Unavailable Un available Nima France-C Unavailable Camille Chandler PA-C Unavailable [phone] Anabela Barakat APRN CASH GRAIN GROWER Unavailable Nima France PA-C Unavailable Basilio Morillo DO Unavailable Fawad York MD Unavailable Roopa Almonte MD Unavailable Augustine Callaway MD Unavailable Maryse Burton PA-C Unavailable Marquita Starkey MD Unavailable [phone] Roopa Almonte MD Unavailable Griffin Joshi MD Unavailable Rina Magallon RN Unavailable [phone] Paula Reza MD Primary Care Provider [phone] Griffin Joshi MD Unavailable Roopa Almonte MD Unavailable [phone] Basilio Morillo DO Unavailable Lydia Bernstein-C Unavailable Rosa Maria Love Unavailable [phone] Augustine Callaway MD Unavailable Paula Reza MD Unavailable Keerthi Miner APRN CASH GRAIN GROWER Unavailable [phone] Herman, Shahida Cummings APRN CASH GRAIN GROWER Unavailable Un available Porsha Michaels APRN CASH GRAIN GROWER Unavailable [phone] Paula Reza MD Unavailable Shahida Sutton APRN CASH GRAIN GROWER Unavailable Un available Daylin Ludwig Unavailable [phone] Laurel Velasquez MD Unavailable [phone] Daylin Ludwig Unavailable [phone] Paula Reza MD Unavailable Porsha Michaels APRN CASH GRAIN GROWER Unavailable [phone] Laurel Velasquez MD Unavailable [phone] Shahida Sutton RESIDENTIAL ROOFER HELPER CASH GRAIN GROWER Unavailable Un available Marilin Montaño CASH GRAIN GROWER Unavailable [phone] Esha Dewitt MD Unavailable [phone] EvelineHeather MD Unavailable [phone] Paula Reza MD Unavailable Esha Dewitt MD Unavailable [phone] Valdo Escamilla PA-C Unavailable [phone] Nohelia Abarca PA-C Unavailable [phone] Heather Mosquera MD Unavailable [phone] Fawad York MD Unavailable Encounter Details Date Type Department Care Team (Late st Contact Info) Description 09/30/2019 MyC Medical Advice [address] [address] Emma Bryan MA Social History Tobacco Use Types Packs/Day [...] have Coronavirus / COVID-19? 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 Rule Out COVID-19 01/05/2021 01/05/2021 01/06/2021 12:57 PM CDT ESBL 01/05/2021 01/05/2021 Rule Out COVID-19 06/30/2021 06/30/2021 07/01/2021 9:34 AM CDT Rule Out COVID-19 07/25/2021 07/25/2021 07/25/2021 8:02 PM CDT Assessment Noted Time PHQ-9 Depression Total Score: 7 08/13/19 20 1:22 PM CDT documented as of this encounter Care Teams Soaker Meat Relationship Specialty Start Date End Date Shahida Sutton APRN CASH GRAIN GROWER PCP - General Nurse Practitioner 08/17/14 08/04/21 Paula Reza MD [address] [facility] [address] [place] [address] PCP - General Internal Medicine 08/05/21 Shahida Sutton APRN CASH GRAIN GROWER Assigned PCP 07/12/14 09/30/21 Carolynn Ramon RN Personal Advocate & Liaison (PAL) 12/17/18 08/07/21 [place] [address] [place] [address] Assigned Musculoskeletal Provider 12/26/19 08/21/20 Brady Lion MD Assigned Heart and Vascular Provider 12/26/19 08/14/20 Nima France PA-C [address] [place] [address] Assigned Surgical Provider 05/19/20 08/21/20 Camille Chandler PA-C [address] [place] [address] Assigned Neuroscience Provider 05/19/20 09/14/20 Anabela Barakat APRN CASH GRAIN GROWER [address] [place] [address] Assigned Heart and Vascular Provider 08/15/20 08/05/21 Nima France PA-C [address] [facility] [address] [place] [address] Assigned Musculoskeletal Provider 08/22/20 11/13/20 [place] [address] [facility] [place] [address] Assigned Musculoskeletal Provider 11/14/20 12/04/20 Fawad York MD [address] [place], [place] [address] Assigned Musculoskeletal Provider 12/05/20 02/05/21 Roopa Almonte MD [address] [facility] 200 [place] [address] Endocrinology, Diabetes, and Metabolism 01/19/21 [place] [address] [facility] [address] [place] [address] Assigned Musculoskeletal Provider 02/06/21 09/16/21 Maryse Burton PA-C [address] [place] [address] Physician Paper Cone Grader Dermatology 04/14/21 Marquita Starkey MD [address] [facility] [address] [place], [place] [address] Internal Medicine 05/06/21 05/06/21 Roopa Almonte MD [address] [facility] [address] [place], [place] [address] Hospitalist Endocrinology, Diabetes, and Metabolism 05/30/21 Griffin Joshi MD [address] [facility] [address] [place] [address] Cardiovascular Disease 07/25/21 Rina Magallon, RN Lead Supervisor Prop Making 07/29/21 07/11/22 Griffin Joshi MD [address] [place] [address] Assigned Heart and Vascular Provider 08/06/21 10/07/21 Roopa Almonte MD [address] [facility] 200 [place] [address] Assigned Endocrinology Provider 09/10/21 [place] [address] [facility] [place] [address] Assigned Musculoskeletal Provider 09/17/21 10/14/21 Lydia Bernstein PA-C [address] [facility] [address] [place] [address] Assigned PCP 10/01/21 10/21/21 Rosa Maria Love CHW Community Health Worker 10/06/21 07/11/22 [place] [address] [address] [facility] [address] [place] [address] Assigned Musculoskeletal Provider 10/15/21 04/26/23 Paula Reza MD [address] [place] [address] Assigned PCP 10/22/21 12/23/21 Keerthi Miner APRN CASH GRAIN GROWER [address] [place] [address] Assigned Heart and Vascular Provider 10/08/21 02/10/22 Shahida Sutton APRN CASH GRAIN GROWER Assigned PCP 12/24/21 03/24/22 Porsha Michaels APRN CASH GRAIN GROWER [address] [place] [address] Assigned Heart and Vascular Provider 02/11/22 05/12/22 Paula Reza MD [address] [place] [address] Assigned PCP 03/25/22 04/07/22 Shahida Sutton APRN CASH GRAIN GROWER [address] [place] [address] Assigned PCP 04/08/22 06/30/22 Daylin Ludwig, EP [facility] [address] [place] [address] Cardiac Rehabilitation Therapist 05/16/23 Laurel Velasquez MD [address] [address] Assigned Heart and Vascular Provider 05/13/22 06/30/22 Daylin Ludwig, EP [facility] [address] [place] [place] [address] Cardiac Rehabilitation Therapist 06/08/22 06/09/23 Paula Reza MD [address] [place], [place] [address] Assigned PCP 07/01/22 07/07/22 Porsha Michaels APRN CASH GRAIN GROWER [address] [place] [address] Assigned Heart and Vascular Provider 07/01/22 07/07/22 Laurel Velasquez MD [address] [place] [address] Assigned Heart and Vascular Provider 07/08/22 08/04/22 Shahida Sutton APRN CASH GRAIN GROWER Assigned PCP 07/08/22 09/08/22 Marilin Montaño, CASH GRAIN GROWER [address] [place] [address] Assigned Heart and Vascular Provider 08/05/22 Esha Dewitt MD [address] [place] [address] 36 [place], [place] [address] Gastroenterology 09/06/22 Heather Mosquera MD [address] [place] [address] Internal Medicine 09/06/22 Paula Reza MD [address] [place] [address] Assigned PCP 09/09/22 01/05/23 Esha Dewitt MD [address] [facility] 36 [place], [place] [address] Assigned Gastroenterology Provider 09/23/22 Valdo Escamilla PA-C [address] [facility] [address] [place] [address] Assigned Neuroscience Provider 09/30/22 Nohelia Abarca PA-C [address] [place] [address] Physician Paper Cone Grader Gastroenterology 10/03/22 Heather Mosquera MD [address] [place] [address] Assigned PCP 01/06/23 Fawad York MD [address] [place], [place] [address] Assigned Musculoskeletal Provider 04/27/23 06/25/23 documented as of this encounter
--- OUTSIDE RECORDS SUMMARY | 2023-09-18 13:51 | XMS_ITS | Encounter Summary ---
Author Organization [facility] Address [address] [place] [address] Care Team Providers Care Plant Attendant Name Role Phone Shahida Sutton APRN VOYAGE MANAGEMENT SYSTEM OPERATOR Primary Care Provi ford Unavailable Shahida Sutton APRN VOYAGE MANAGEMENT SYSTEM OPERATOR Unavailable Un available Carolynn Ramon RN Unavailable [phone] Augustine Callaway MD Unavailable Brady Lion MD Unavailable Un available Nima France-C Unavailable Camille Chandler PA-C Unavailable [phone] Anabela Barakat APRN VOYAGE MANAGEMENT SYSTEM OPERATOR Unavailable Nima France PA-C Unavailable Basilio Morillo DO Unavailable [phone] Fawad York MD Unavailable Roopa Almonte MD Unavailable Augustine Callaway MD Unavailable Maryse Burton PA-C Unavailable Marquita Starkey MD Unavailable [phone] Roopa Almonte MD Unavailable Griffin Joshi MD Unavailable Rina Magallon RN Unavailable [phone] Paula Reza MD Primary Care Provider [phone] Griffin Joshi MD Unavailable Roopa Almonte MD Unavailable [phone] Basilio Morillo DO Unavailable Lydia Bernstein-C Unavailable Rosa Maria Love Unavailable [phone] Augustine Callaway MD Unavailable Paula Reza MD Unavailable Keerthi Miner APRN VOYAGE MANAGEMENT SYSTEM OPERATOR Unavailable [phone] Herman, Shahida Cummings APRN VOYAGE MANAGEMENT SYSTEM OPERATOR Unavailable Un available Porsha Michaels APRN VOYAGE MANAGEMENT SYSTEM OPERATOR Unavailable [phone] Paula Reza MD Unavailable Shahida Sutton APRN VOYAGE MANAGEMENT SYSTEM OPERATOR Unavailable Un available Daylin Ludwig Unavailable [phone] Laurel Velasquez MD Unavailable [phone] Daylin Ludwig Unavailable [phone] Paula Reza MD Unavailable Porsha Michaels APRN VOYAGE MANAGEMENT SYSTEM OPERATOR Unavailable [phone] Laurel Velasquez MD Unavailable [phone] Shahida Sutton MILK WAGON DRIVER VOYAGE MANAGEMENT SYSTEM OPERATOR Unavailable Un available Marilin Montaño VOYAGE MANAGEMENT SYSTEM OPERATOR Unavailable [phone] Esha Dewitt MD Unavailable [phone] EvelineHeather MD Unavailable [phone] Paula Reza MD Unavailable Esha Dewitt MD Unavailable [phone] Valdo Escamilla PA-C Unavailable [phone] Nohelia Abarca PA-C Unavailable [phone] Heather Mosquera MD Unavailable Fawad York MD Unavailable Reason for Visit * Reason Comments Medication Refill Encounter Details Date Type Department Care Team (Late st Contact Info) Description 09/03/2019 Refill [facility] [address] [place] [phone] Vesta Aguayo PA-C [id number] [place] [address] Medication Refill Social History Tobacco Use Types [...] Out COVID-19 02/15/2020 02/15/2020 02/16/2020 2:32 PM BARREL RIFLER OPERATOR Rule Out COVID-19 01/05/2021 01/05/2021 01/06/2021 12:57 PM CDT ESBL 01/05/2021 01/05/2021 Rule Out COVID-19 06/30/2021 06/30/202107/01/2021 9:34 AM CDT Rule Out COVID-19 07/25/2021 07/25/2021 07/25/2021 8:02 PM CDT Assessment Noted Time PHQ-9 Depression Total Score: 7 08/13/19 20 1:22 PM CDT documented as of this encounter Care Teams Plant Attendant Relationship Specialty Start Date End Date Shahida Sutton APRN VOYAGE MANAGEMENT SYSTEM OPERATOR PCP - General Nurse Practitioner 08/17/14 08/04/21 Paula Reza MD [address] [place] [address] PCP - General Internal Medicine 08/05/21 Shahida Sutton APRN VOYAGE MANAGEMENT SYSTEM OPERATOR Assigned PCP 07/12/14 09/30/21 Carolynn Ramon RN Personal Advocate & Liaison (PAL) 12/17/18 08/07/21 [place] [address] [place] [address] Assigned Musculoskeletal Provider 12/26/19 08/21/20 Brady Lion MD Assigned Heart and Vascular Provider 12/26/19 08/14/20 Nima France PA-C [address] [place] [address] Assigned Surgical Provider 05/19/20 08/21/20 Camille Chandler PA-C [address] [place] [address] Assigned Neuroscience Provider 05/19/20 09/14/20 StoesAnabela win APRN CNP [address] [place] [address] Assigned Heart and Vascular Provider 08/15/20 08/05/21 Nima France PA-C [address] [facility] [address] [place] [address] Assigned Musculoskeletal Provider 08/22/20 11/13/20 [place] [address] [facility] [place] [address] Assigned Musculoskeletal Provider 11/14/20 12/04/20 Fawad York MD [address] [place], [place] [address] Assigned Musculoskeletal Provider 12/05/20 02/05/21 Roopa Almonte MD [address] [facility] [address] [place], [place] [address] Endocrinology, Diabetes, and Metabolism 01/19/21 [place] [address] [facility] [address] [place] [address] Assigned Musculoskeletal Provider 02/06/21 09/16/21 Maryse Burton PA-C [address] [place] [address] Physician Mine Supervisor Dermatology 04/14/21 Marquita Starkey MD [address] [facility] [address] [place], [place] [address] Internal Medicine 05/06/21 05/06/21 oRopa Almonte MD [address] [facility] [address] [place] [address] Hospitalist Endocrinology, Diabetes, and Metabolism 05/30/21 Griffin Joshi MD [address] [place] [address] Cardiovascular Disease 07/25/21 Rina Magallon, RN Lead Medical Customer Service Representative 07/29/21 07/11/22 Griffin Joshi MD [address] [facility] [address] [place] [address] Assigned Heart and Vascular Provider 08/06/21 10/07/21 Roopa Almonte MD [address] [facility] 200 [place] [address] Assigned Endocrinology Provider 09/10/21 [place] [address] [facility] [place] [address] Assigned Musculoskeletal Provider 09/17/21 10/14/21 Lydia Bernstein PA-C [address] [facility] [address] [place] [address] Assigned PCP 10/01/21 10/21/21 Rosa Maria Love CHW Community Health Worker 10/06/21 07/11/22 [place] [address] [address] [facility] [address] [place] [address] Assigned Musculoskeletal Provider 10/15/21 04/26/23 Paula Reza MD [address] [place] [address] Assigned PCP 10/22/21 12/23/21 Keerthi Miner APRN VOYAGE MANAGEMENT SYSTEM OPERATOR [address] [place] [address] Assigned Heart and Vascular Provider 10/08/21 02/10/22 Shahida Sutton APRN VOYAGE MANAGEMENT SYSTEM OPERATOR Assigned PCP 12/24/21 03/24/22 Porsha Michaels APRN VOYAGE MANAGEMENT SYSTEM OPERATOR [address] [place] [address] Assigned Heart and Vascular Provider 02/11/22 05/12/22 Paula Reza MD [address] [place] [address] Assigned PCP 03/25/22 04/07/22 Shahida Sutton APRN VOYAGE MANAGEMENT SYSTEM OPERATOR [address] [place] [address] Assigned PCP 04/08/22 06/30/22 Daylin Ludwig, MIKI [facility] [address] [place] [address] Cardiac Rehabilitation Therapist 05/16/23 Laurel Velasquez MD [address] [address] Assigned Heart and Vascular Provider 05/13/22 06/30/22 Daylin Ludwig EP [facility] [address] [place] [address] Cardiac Rehabilitation Therapist 06/08/22 06/09/23 Paula Reza MD [address] [place] [address] Assigned PCP 07/01/22 07/07/22 Porsha Michaels APRN VOYAGE MANAGEMENT SYSTEM OPERATOR [address] [place] [address] Assigned Heart and Vascular Provider 07/01/22 07/07/22 Laurel Velasquez MD [address] [place] [address] Assigned Heart and Vascular Provider 07/08/22 08/04/22 Shahida Sutton APRN VOYAGE MANAGEMENT SYSTEM OPERATOR Assigned PCP 07/08/22 09/08/22 Marilin Montaño, VOYAGE MANAGEMENT SYSTEM OPERATOR [address] [place] [address] Assigned Heart and Vascular Provider 08/05/22 Esha Dewitt MD [address] [place] [address] 36 [place], [place] [address] Gastroenterology 09/06/22 Heather Mosquera MD [address] [place] [address] Internal Medicine 09/06/22 Paula Reza MD [address] [place] [address] Assigned PCP 09/09/22 01/05/23 Esha Dewitt MD [address] [facility] 36 [place] [address] Assigned Gastroenterology Provider 09/23/22 Valdo Escamilla PA-C [address] [facility] [address] [place] [address] Assigned Neuroscience Provider 09/30/22 Nohelia Abarca PA-C [address] [place] [address] Physician Mine Supervisor Gastroenterology 10/03/22 Heather Mosquera MD [address] [facility] 150 [place] [address] Assigned PCP 01/06/23 Fawad York MD [address] [place] [address] Assigned Musculoskeletal Provider 04/27/23 06/25/23 documented as of this encounter
--- OUTSIDE RECORDS SUMMARY | 2023-09-18 13:51 | XMS_ITS | Encounter Summary ---
Author Organization [facility] Address [address] [place] [address] Care Team Providers Care Pole Shaver Name Role Phone Shahida Sutton APRN BLOW PIT OPERATOR Primary Care Provi ford Unavailable Shahida Sutton APRN BLOW PIT OPERATOR Unavailable Un available Carolynn Ramon RN Unavailable Augustine Callaway MD Unavailable Brady Lion MD Unavailable Un available Nima France-C Unavailable Camille Chandler PA-C Unavailable [phone] Anabela Barakat APRN BLOW PIT OPERATOR Unavailable Nima France PA-C Unavailable Basilio Morillo DO Unavailable Fawad York MD Unavailable [phone] Roopa Almonte MD Unavailable Augustine Callaway MD Unavailable Maryse Burton PA-C Unavailable Marquita Starkey MD Unavailable Roopa Almonte MD Unavailable Griffin Joshi MD Unavailable Rina Magallon RN Unavailable [phone] Paula Reza MD Primary Care Provider [phone] Griffin Joshi MD Unavailable Roopa Almonte MD Unavailable [phone] Basilio Morillo DO Unavailable Lydia Bernstein-C Unavailable Rosa Maria Love Unavailable [phone] Augustine Callaway MD Unavailable Paula Reza MD Unavailable Keertih Miner APRN BLOW PIT OPERATOR Unavailable [phone] Herman, Shahida Cummings APRN BLOW PIT OPERATOR Unavailable Un available Porsha Michaesl APRN BLOW PIT OPERATOR Unavailable [phone] Paula Reza MD Unavailable Shahida Sutton APRN BLOW PIT OPERATOR Unavailable Un available Daylin Ludwig Unavailable [phone] Laurel Velasquez MD Unavailable [phone] Daylin Ludwig Unavailable [phone] Paula Reza MD Unavailable Porsha Michaels APRN BLOW PIT OPERATOR Unavailable [phone] Laurel Velasquez MD Unavailable [phone] Shahida Sutton SURVEYOR BLOW PIT OPERATOR Unavailable Un available Marilin Montaño BLOW PIT OPERATOR Unavailable [phone] Esha Dewitt MD Unavailable [phone] EvelineHeather MD Unavailable [phone] Paula Reza MD Unavailable Esha Dewitt MD Unavailable [phone] Andi Valdo Desouza PA-C Unavailable [phone] Nohelia Abarca PA-C Unavailable [phone] Heather Mosquera MD Unavailable Fawad York MD Unavailable Reason for Visit * Reason Onset Date Comments Refill Request 11/05/2019 Encounter Details Date Type Department Care Team (Late st Contact Info) Description 11/05/2019 MyC Refill [address] [address] Shahida Sutton APRN BLOW PIT OPERATOR Refill Request Social History Tobacco Use [...] have Coronavirus / COVID-19? No / Unsure 10/06/2019 9:05 AM CDT documented as of this encounter Miscellaneous Notes * Telephone Encounter - Radha Slater RN - 11/05/2019 11:47 AM CDT Routing refill request to provider for review/approval because: Drug not on the G refill protocol Radha Smith RN, BSN * Telephone Encounter - Radha Slater RN - 11/05/2019 11:47 AM CDT Prescription approved per [facility] Refill Protocol. 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 Rule Out COVID-19 01/05/2021 01/05/2021 01/06/2021 12:57 PM CDT ESBL 01/05/2021 01/05/2021 Rule Out COVID-19 06/30/2021 06/30/2021 07/01/2021 9:34 AM CDT Rule Out COVID-19 07/25/2021 07/25/2021 07/25/2021 8:02 PM CDT Assessment Noted Time PHQ-9 Depression Total Score: 7 08/13/19 20 1:22 PM CDT documented as of this encounter Care Teams Pole Shaver Relationship Specialty Start Date End Date Shahida Sutton APRN BLOW PIT OPERATOR PCP - General Nurse Practitioner 08/17/14 08/04/21 Paula Reza MD [facility] [address] [place] [address] PCP - General Internal Medicine 08/05/21 Shahida Sutton APRN BLOW PIT OPERATOR Assigned PCP 07/12/14 09/30/21 Carolynn Ramon, KASIE Personal Advocate & Liaison (PAL) 12/17/18 08/07/21 [place] [address] [place] [address] Assigned Musculoskeletal Provider 12/26/19 08/21/20 Brady Lion MD Assigned Heart and Vascular Provider 12/26/19 08/14/20 Nima France PA-C [address] [facility] [address] [place] [address] Assigned Surgical Provider 05/19/20 08/21/20 Camille Chandler PA-C [address] [facility] [address] [place] [address] Assigned Neuroscience Provider 05/19/20 09/14/20 Anabela Barakat APRN BLOW PIT OPERATOR [address] [place] [address] Assigned Heart and Vascular Provider 08/15/20 08/05/21 Nima France PA-C [address] [facility] [address] [place] [address] Assigned Musculoskeletal Provider 08/22/20 11/13/20 [place] [address] [place] [address] Assigned Musculoskeletal Provider 11/14/20 12/04/20 Fawad York MD [address] [place] [address] Assigned Musculoskeletal Provider 12/05/20 02/05/21 Roopa Almonte MD [address] [facility] [address] [place] [address] Endocrinology, Diabetes, and Metabolism 01/19/21 [place] [address] [facility] [address] [place] [address] Assigned Musculoskeletal Provider 02/06/21 09/16/21 Maryse Burton PA-C [address] [place] [address] Physician Tip Banding 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 Dermatology 04/14/21 Marquita Starkey MD [address] [facility] 200 [place] [address] Internal Medicine 05/06/21 05/06/21 Roopa Almonte MD [address] [facility] [address] [place] [address] Hospitalist Endocrinology, Diabetes, and Metabolism 05/30/21 Griffin Joshi MD [address] [facility] [address] [place] [address] Cardiovascular Disease 07/25/21 Rina Magallon, RN Lead Blower Feeder Dyed Raw Stock 07/29/21 07/11/22 Griffin Joshi MD [address] [facility] [address] [place] [address] Assigned Heart and Vascular Provider 08/06/21 10/07/21 Roopa Almonte MD [address] [facility] [address] [place], [place] [address] Assigned Endocrinology Provider 09/10/21 [place] [address] [facility] [place] [address] Assigned Musculoskeletal Provider 09/17/21 10/14/21 Lydia Bernstein PA-C [address] [place] [address] Assigned PCP 10/01/21 10/21/21 Rosa Maria Love CHW Community Health Worker 10/06/21 07/11/22 [place] [address] [place] [address] Assigned Musculoskeletal Provider 10/15/21 04/26/23 Paula Reza MD [address] [place], [place] [address] Assigned PCP 10/22/21 12/23/21 Keerthi Miner APRN BLOW PIT OPERATOR [address] [place] [address] Assigned Heart and Vascular Provider 10/08/21 02/10/22 Shahida Sutton APRN BLOW PIT OPERATOR Assigned PCP 12/24/21 03/24/22 Porsha Michaels APRN BLOW PIT OPERATOR [address] [place] [address] Assigned Heart and Vascular Provider 02/11/22 05/12/22 Paula Reza MD [address] [place] [address] Assigned PCP 03/25/22 04/07/22 Shahida Sutton APRN BLOW PIT OPERATOR [address] [place] [address] Assigned PCP 04/08/22 06/30/22 Daylin Ludwig, MIKI [facility] [address] [place] [address] Cardiac Rehabilitation Therapist 05/16/23 Laurel Velasquez MD [address] [place] [address] Assigned Heart and Vascular Provider 05/13/22 06/30/22 Daylin Ludwig, MIKI [facility] [address] [place] [address] Cardiac Rehabilitation Therapist 06/08/22 06/09/23 Paula Reza MD [address] [facility] [address] [place] [address] Assigned PCP 07/01/22 07/07/22 Porsha Michaels APRN BLOW PIT OPERATOR [address] [place] [address] Assigned Heart and Vascular Provider 07/01/22 07/07/22 Laurel Velasquez MD [address] [place] [address] Assigned Heart and Vascular Provider 07/08/22 08/04/22 Shahida Sutton APRN BLOW PIT OPERATOR Assigned PCP 07/08/22 09/08/22 Marilin Montaño, BLOW PIT OPERATOR [address] [place] [address] Assigned Heart and Vascular Provider 08/05/22 Esha Dewitt MD [address] 4730[address] MD Gastroenterology 09/06/22 Heather Mosquera MD [address] [place], [place] [address] Internal Medicine 09/06/22 Paula Reza MD [address] [facility] [address] [place], [place] [address] Assigned PCP 09/09/22 01/05/23 Esha Dewitt MD [address] 3587[address] Assigned Gastroenterology Provider 09/23/22 Valdo Escamilla PA-C [address] [facility] [address] [place], [place] [address] Assigned Neuroscience Provider 09/30/22 Nohelia Abarca PA-C [address] [place], [place] [address] Physician Tip Banding 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 Gastroenterology 10/03/22 Heather Mosquera MD [address] [place], [place] [address] Assigned PCP 01/06/23 Fawda York MD [address] [place], [place] [address] Assigned Musculoskeletal Provider 04/27/23 06/25/23 documented as of this encounter
--- OUTSIDE RECORDS SUMMARY | 2023-09-18 13:52 | XMS_ITS | Encounter Summary ---
Author Organization [facility] Address [address] [place] [address] Care Team Providers Care Gravure Press Set Up Operator Name Role Phone HermanShahida huerta APRN SALES AGENT PROTECTIVE SERVICE Primary Care Provi ford Unavailable Herman, Shahida Cummings APRN SALES AGENT PROTECTIVE SERVICE Unavailable Un available Herman, Shahida Cummings APRN SALES AGENT PROTECTIVE SERVICE Unavailable Un available Carolynn Ramon RN Unavailable [phone] Augustine Callaway MD Unavailable Brady Lion MD Unavailable Un available Nima France-C Unavailable [phone] Camille Chandler PA-C Unavailable [phone] Anabela Barakat APRN SALES AGENT PROTECTIVE SERVICE Unavailable Nima France PA-C Unavailable Basilio Morillo DO Unavailable Fawad York MD Unavailable [phone] Roopa Almonte MD Unavailable [phone] Augutsine Callaway MD Unavailable Maryse Burton PA-C Unavailable [phone] Marquita Starkey MD Unavailable Roopa Almonte MD Unavailable [phone] Griffin Joshi MD Unavailable Rina Magallon RN Unavailable [phone] Paula Reza MD Primary Care Provider [phone] Griffin Joshi MD Unavailable Roopa Almonte MD Unavailable [phone] [facility] Basilio Naik Unavailable Lydia Bernstein PA-C Unavailable Rosa Maria Love Unavailable [phone] Augustine Callaway MD Unavailable Paula Reza MD Unavailable Keerthi Miner APRN SALES AGENT PROTECTIVE SERVICE Unavailable [phone] Herman, Shahida Cummings APRN SALES AGENT PROTECTIVE SERVICE Unavailable Un available Porsha Michaels APRN SALES AGENT PROTECTIVE SERVICE Unavailable [phone] Paula Reza MD Unavailable Herman, Shahida Cummings APRN SALES AGENT PROTECTIVE SERVICE Unavailable Un available Daylin Ludwig Unavailable [phone] Laurel Velasquez MD Unavailable [phone] Daylin Ludwig Unavailable [phone] Paula Reza MD Unavailable Porsha Michaels APRN SALES AGENT PROTECTIVE SERVICE Unavailable [phone] Laurel Velasquez MD Unavailable [phone] Herman, Shahida Cummings APRN SALES AGENT PROTECTIVE SERVICE Unavailable Un available Marilin Montaño SALES AGENT PROTECTIVE SERVICE Unavailable [phone] Esha Dewitt MD Unavailable [phone] Heather Mosquera MD Unavailable [phone] Paula Reza MD Unavailable Esha Dewitt MD Unavailable [phone] Valdo Escamilla PA-C Unavailable Nohelia Abarca PA-C Unavailable [phone] Heather Mosquera MD Unavailable Fawad York MD Unavailable Reason for Visit * Reason Onset Date Comments Refill Request 02/18/2015 Encounter Details Date Type Department Care Team (Late st Contact Info) Description 02/18/2015 MyC Refill [facility] [place] [id number] [address] German Black MD [address] [place] [address] Refill Request Social History Tobacco Use Types Packs/Day Years Used Date Smoking Tobacco: Former Cigarettes Q uit: 12/09/2006 Cigars Smokeless Tobacco: Never Alcohol Use Standard Drinks/Week Comments Yes 0 (1 standard drink = 0.6 oz pur e alcohol) Very Occasionally Sex and Gender Information Value Date Recorded [...] Out COVID-19 02/15/2020 02/15/2020 02/16/2020 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 Rule Out COVID-19 01/05/2021 01/05/2021 01/06/2021 12:57 PM CDT ESBL 01/05/2021 01/05/2021 Rule Out COVID-19 06/30/2021 06/30/2021 07/01/2021 9:34 AM CDT Rule Out COVID-19 07/25/2021 07/25/2021 07/25/2021 8:02 PM CDT Assessment Noted Time PHQ-9 Depression Total Score: 5 01/31/20 15 7:38 AM 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 documented as of this encounter Care Teams Gravure Press Set Up Operator Relationship Specialty Start Date End Date Shahida Sutton APRN SALES AGENT PROTECTIVE SERVICE PCP - General Nurse Practitioner 08/17/14 08/04/21 Shahida Sutton APRN SALES AGENT PROTECTIVE SERVICE PCP - Assigned PCP 07/12/14 05/07/18 Paula Reza MD [address] [facility] [address] [place] [address] PCP - General Internal Medicine 08/05/21 Shahida Sutton APRN SALES AGENT PROTECTIVE SERVICE Assigned PCP 07/12/14 09/30/21 Carolynn Ramon RN Personal Advocate & Liaison (PAL) 12/17/18 08/07/21 [place] [address] [facility] [address] [place] [address] Assigned Musculoskeletal Provider 12/26/19 08/21/20 Brady Lion MD Assigned Heart and Vascular Provider 12/26/19 08/14/20 Nima France PA-C [address] [place] [address] Assigned Surgical Provider 05/19/20 08/21/20 Camille Chandler PA-C [address] [place] [address] Assigned Neuroscience Provider 05/19/20 09/14/20 StoesAnabela win APRN CNP [address] [place] [address] Assigned Heart and Vascular Provider 08/15/20 08/05/21 Nima France PA-C [address] [facility] 450 [place] [address] Assigned Musculoskeletal Provider 08/22/20 11/13/20 [place] [address] [facility] [place] [address] Assigned Musculoskeletal Provider 11/14/20 12/04/20 Fawad York MD [address] [place], [place] [address] Assigned Musculoskeletal Provider 12/05/20 02/05/21 Roopa Almonte MD [address] [facility] [address] [place], [place] [address] Endocrinology, Diabetes, and Metabolism 01/19/21 [place] [address] [facility] [address] [place] [address] Assigned Musculoskeletal Provider 02/06/21 09/16/21 Maryse Burton PA-C [address] [place] [address] Physician Area Forester Dermatology 04/14/21 Marquita Starkey MD [address] [facility] [address] [place], [place] [address] Internal Medicine 05/06/21 05/06/21 Roopa Almonte MD [address] [facility] [address] [place] [address] Hospitalist Endocrinology, Diabetes, and Metabolism 05/30/21 Griffin Joshi MD [address] [place] [address] Cardiovascular Disease 07/25/21 Rina Magallon, RN Lead Event Executive 07/29/21 07/11/22 Griffin Joshi MD [address] [facility] [address] [place] [address] Assigned Heart and Vascular Provider 08/06/21 10/07/21 Roopa Almonte MD [address] [facility] 200 [place] [address] Assigned Endocrinology Provider 09/10/21 [place] [address] [facility] [place] [address] Assigned Musculoskeletal Provider 09/17/21 10/14/21 Lydia Bernstein PA-C [address] [facility] [address] [place] [address] Assigned PCP 10/01/21 10/21/21 Rosa Maria Love CHW Community Health Worker 10/06/21 07/11/22 [place] [address] [place] [facility] [address] [place] [address] Assigned Musculoskeletal Provider 10/15/21 04/26/23 Paula Reza MD [address] [place] [address] Assigned PCP 10/22/21 12/23/21 Keerthi Miner APRN SALES AGENT PROTECTIVE SERVICE [address] [place] [address] Assigned Heart and Vascular Provider 10/08/21 02/10/22 Shahida Sutton APRN SALES AGENT PROTECTIVE SERVICE Assigned PCP 12/24/21 03/24/22 Porsha Michaels APRN SALES AGENT PROTECTIVE SERVICE [address] [place] [address] Assigned Heart and Vascular Provider 02/11/22 05/12/22 Paula Reza MD [address] [place] [address] Assigned PCP 03/25/22 04/07/22 Shahida Sutton APRN SALES AGENT PROTECTIVE SERVICE [address] [place] [address] Assigned PCP 04/08/22 06/30/22 Daylin Ludwig, MIKI [facility] [address] [place] [address] Cardiac Rehabilitation Therapist 05/16/23 Laurel Velasquez MD [address] [place] [address] Assigned Heart and Vascular Provider 05/13/22 06/30/22 Daylin Ludwig EP [facility] [address] [place], [place] [address] Cardiac Rehabilitation Therapist 06/08/22 06/09/23 Paula Reza MD [address] [place] [address] Assigned PCP 07/01/22 07/07/22 Porsha Michaels APRN SALES AGENT PROTECTIVE SERVICE [address] [place] [address] Assigned Heart and Vascular Provider 07/01/22 07/07/22 Laurel Velasquez MD [address] [place] [address] Assigned Heart and Vascular Provider 07/08/22 08/04/22 Shahida Sutton APRN SALES AGENT PROTECTIVE SERVICE Assigned PCP 07/08/22 09/08/22 Marilin Montaño, SALES AGENT PROTECTIVE SERVICE [address] [place] [address] Assigned Heart and Vascular Provider 08/05/22 Esha Dewitt MD [address] [place] [address] 36 [place], [place] [address] Gastroenterology 09/06/22 Heather Mosquera MD [address] [place] [address] Internal Medicine 09/06/22 Paula Reza MD [address] [place] [address] Assigned PCP 09/09/22 01/05/23 Esha Dewitt MD [address] [facility] 36 [place] [address] Assigned Gastroenterology Provider 09/23/22 Valdo Escamilla PA-C [address] [facility] [address] [place] [address] Assigned Neuroscience Provider 09/30/22 Nohelia Abarca PA-C [address] [place] [address] Physician Area Forester Gastroenterology 10/03/22 Heather Mosquera MD [address]45 [facility] 150 [place] [address] Assigned PCP 01/06/23 Fawad York MD [address] [place] [address] Assigned Musculoskeletal Provider 04/27/23 06/25/23 documented as of this encounter
--- OUTSIDE RECORDS SUMMARY | 2023-09-18 13:52 | XMS_ITS | Encounter Summary ---
Author Organization [facility] Address [address] [place] [address] Care Team Providers Care Newsstand Vendor Name Role Phone Shahida Sutton APRN CITY CONTROLLER Primary Care Provi ford Unavailable Shahida Sutton APRN CITY CONTROLLER Unavailable Un available Carolynn Ramon RN Unavailable Augustine Callaway MD Unavailable Brady Lion MD Unavailable Un available Nima France-C Unavailable Camille Chandler PA-C Unavailable [phone] Anabela Barakat APRN CITY CONTROLLER Unavailable Nima France PA-C Unavailable Basilio Morillo DO Unavailable Fawad York MD Unavailable Roopa Almonte MD Unavailable Augustine Callaway MD Unavailable Maryse Burton PA-C Unavailable Marquita Starkey MD Unavailable [phone] Roopa Almonte MD Unavailable Griffin Joshi MD Unavailable Rina Magallon RN Unavailable [phone] Paula Reza MD Primary Care Provider [phone] Griffin Joshi MD Unavailable Roopa Almonte MD Unavailable [phone] Basilio Morillo DO Unavailable Lydia Bernstein-C Unavailable Rosa Maria Love Unavailable [phone] Augustine Callaway MD Unavailable Paula Reza MD Unavailable Keerthi Miner APRN CITY CONTROLLER Unavailable [phone] Herman, Shahida Cummings APRN CITY CONTROLLER Unavailable Un available Prosha Michaels APRN CITY CONTROLLER Unavailable [phone] Paula Reza MD Unavailable Shahida Sutton APRN CITY CONTROLLER Unavailable Un available Daylin Ludwig Unavailable [phone] Laurel Velasquez MD Unavailable [phone] Daylin Ludwig Unavailable [phone] Paula Reza MD Unavailable Porsha Michaels APRN CITY CONTROLLER Unavailable [phone] Laurel Velasquez MD Unavailable [phone] Shahida Sutton BEADING [employer] CITY CONTROLLER Unavailable Un available Marilin Montaño CITY CONTROLLER Unavailable [phone] Esha Dewitt MD Unavailable [phone] EvelineHeather MD Unavailable [phone] Paula Reza MD Unavailable Esha Dewitt MD Unavailable [phone] Andi Valdo Desouza PA-C Unavailable [phone] Nohelia Abarca PA-C Unavailable [phone] Heather Mosquera MD Unavailable Fawad York MD Unavailable Encounter Details Date Type Department Care Team (Late st Contact Info) Description 03/11/2019 MyC Medical Advice [facility] [address] [place] [address] [address] [place] [address] Aneta Campbell APRN [facility] [address] [place] [address] 200 [place], [place] [id number] Social History Tobacco Use Types Packs/Day Years [...] Out COVID-19 02/15/2020 02/15/2020 02/16/2020 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 Rule Out COVID-19 01/05/2021 01/05/2021 01/06/2021 12:57 PM CDT ESBL 01/05/2021 01/05/2021 Rule Out COVID-19 06/30/2021 06/30/2021 07/01/2021 9:34 AM CDT Rule Out COVID-19 07/25/2021 07/25/2021 07/25/2021 8:02 PM CDT Assessment Noted Time PHQ-9 Depression Total Score: 6 12/21/19 18 7:06 AM CDT documented as of this encounter Care Teams Newsstand Vendor Relationship Specialty Start Date End Date Shahida Sutton APRN CITY CONTROLLER PCP - General Nurse Practitioner 08/17/14 08/04/21 Paula Reza MD [address] [facility] [address] [place] [address] PCP - General Internal Medicine 08/05/21 Shahida Sutton APRN CITY CONTROLLER Assigned PCP 07/12/14 09/30/21 Carolynn Ramon, KASIE Personal Advocate & Liaison (PAL) 12/17/18 08/07/21 [place] [address] [place] [address] Assigned Musculoskeletal Provider 12/26/19 08/21/20 Brady Lion MD Assigned Heart and Vascular Provider 12/26/19 08/14/20 Nima France PA-C [address] [facility] [address] [place] [address] Assigned Surgical Provider 05/19/20 08/21/20 Camille Chandler PA-C [address] [place] [address] Assigned Neuroscience Provider 05/19/20 09/14/20 Anabela Barakat APRN CITY CONTROLLER [address] [place] [address] Assigned Heart and Vascular Provider 08/15/20 08/05/21 Nima France PA-C [address] [facility] [address] [place], [place] [address] Assigned Musculoskeletal Provider 08/22/20 11/13/20 [place] [address] [place], [place] [address] Assigned Musculoskeletal Provider 11/14/20 12/04/20 Fawad York MD [address] [place], [place] [address] Assigned Musculoskeletal Provider 12/05/20 02/05/21 Roopa Almonte MD [address] [facility] 200 [place] [address] Endocrinology, Diabetes, and Metabolism 01/19/21 [place] [address] [facility] [address] [place], [place] [address] Assigned Musculoskeletal Provider 02/06/21 09/16/21 Maryse Burton PA-C [address] [place] [address] Physician Consulting Project Director Dermatology 04/14/21 Marquita Starkey MD [address] [facility] 200 [place], [place] [address] Internal Medicine 05/06/21 05/06/21 Roopa Almonte MD [address] [facility] 200 [place] [address] Hospitalist Endocrinology, Diabetes, and Metabolism 05/30/21 Griffin Joshi MD [address] [facility] [facility] [address] [place] [address] Cardiovascular Disease 07/25/21 Rina Magallon, RN Lead Coal Cager 07/29/21 07/11/22 Griffin Joshi MD [address] [facility] [address] [facility] [address] [place] [address] Assigned Heart and Vascular Provider 08/06/21 10/07/21 Roopa Almonte MD [address] [address] [place] [address] Assigned Endocrinology Provider 09/10/21 [place] [address] [facility] [place] [address] Assigned Musculoskeletal Provider 09/17/21 10/14/21 Lydia Bernstein PA-C [address] [facility] [facility] [address] [place] [address] Assigned PCP 10/01/21 10/21/21 Rosa Maria Love CHW Community Health Worker 10/06/21 07/11/22 [place] [address] [address] [facility] [address] [place] [address] Assigned Musculoskeletal Provider 10/15/21 04/26/23 Paula Reza MD [address] [facility] [address] [place] [address] Assigned PCP 10/22/21 12/23/21 Keerthi Miner APRN CITY CONTROLLER [address] [place] [address] Assigned Heart and Vascular Provider 10/08/21 02/10/22 Shahida Sutton APRN CITY CONTROLLER Assigned PCP 12/24/21 03/24/22 Porsha Michaels APRN CITY CONTROLLER [address] [place] [address] Assigned Heart and Vascular Provider 02/11/22 05/12/22 Paula Reza MD [address] [facility] 200 [place] [address] Assigned PCP 03/25/22 04/07/22 Shahida Sutton APRN CITY CONTROLLER [address] [place] [place] [address] Assigned PCP 04/08/22 06/30/22 Daylin Ludwig, EP [facility] [address] [address] Cardiac Rehabilitation Therapist 05/16/23 Laurel Velasquez MD [address] [address] Assigned Heart and Vascular Provider 05/13/22 06/30/22 Daylin Ludwig, [facility] [address] [place] [address] Cardiac Rehabilitation Therapist 06/08/22 06/09/23 Paula Reza MD [address] [place], [place] [address] Assigned PCP 07/01/22 07/07/22 Porsha Michaels APRN CITY CONTROLLER [address] [place] [address] Assigned Heart and Vascular Provider 07/01/22 07/07/22 Laurel Velasquez MD [address] [place] [address] Assigned Heart and Vascular Provider 07/08/22 08/04/22 Shahida Sutton APRN CITY CONTROLLER Assigned PCP 07/08/22 09/08/22 Marilin Montaño, CITY CONTROLLER [address] [place] [address] Assigned Heart and Vascular Provider 08/05/22 Esha Dewitt MD [address] [place] [address] 36 [place], [place] [address] Gastroenterology 09/06/22 Heather Mosquera MD [address] [place] [address] Internal Medicine 09/06/22 Paula Reza MD [address] [place] [address] Assigned PCP 09/09/22 01/05/23 Esha Dewitt MD [address] [facility] 36 [place] [address] Assigned Gastroenterology Provider 09/23/22 Valdo Escamilla PA-C [address] [facility] [address] [place] [address] Assigned Neuroscience Provider 09/30/22 Nohelia Abarca PA-C [address] [facility] [address] Physician Consulting Project Director Gastroenterology 10/03/22 Heather Mosquera MD [address] [facility] [address] [address] [address] [place] [address] Assigned PCP 01/06/23 aFwad York MD [address] [place] [address] Assigned Musculoskeletal Provider 04/27/23 06/25/23 documented as of this encounter
--- OUTSIDE RECORDS SUMMARY | 2023-09-18 13:52 | XMS_ITS | Encounter Summary ---
Author Organization [facility] Address [address] [place] [address] Care Team Providers Care Breakfast Manager Name Role Phone HermanShahida huerta APRN STEAM LOCOMOTIVE FIRER/FIREMAN Primary Care Provi ford Unavailable Herman, Shahida Cummings APRN STEAM LOCOMOTIVE FIRER/FIREMAN Unavailable Un available Herman, Shahida Cummings APRN STEAM LOCOMOTIVE FIRER/FIREMAN Unavailable Un available Carolynn Ramon RN Unavailable [phone] Augustine Callaway MD Unavailable Brady Lion MD Unavailable Un available Nima France-C Unavailable [phone] Camille Chandler PA-C Unavailable [phone] Anabela Barakat APRN STEAM LOCOMOTIVE FIRER/FIREMAN Unavailable Nima France PA-C Unavailable Basilio Morillo DO Unavailable Fawad York MD Unavailable [phone] Roopa Almonte MD Unavailable [phone] Augustine Callaway MD Unavailable Maryse Burton PA-C Unavailable Marquita Starkey MD Unavailable Roopa Almonte MD Unavailable [phone] Griffin Joshi MD Unavailable Rina Magallon RN Unavailable [phone] Paula Reza MD Primary Care Provider [phone] Griffin Joshi MD Unavailable Roopa Almonte MD Unavailable [phone] [facility] Basilio Naik Unavailable Lydia Bernstein PA-C Unavailable Rosa Maria Love Unavailable [phone] Augustine Callaway MD Unavailable Paula Reza MD Unavailable Keerthi Miner APRN STEAM LOCOMOTIVE FIRER/FIREMAN Unavailable [phone] Herman, Shahida Cummings APRN STEAM LOCOMOTIVE FIRER/FIREMAN Unavailable Un available Porsha Michaels APRN STEAM LOCOMOTIVE FIRER/FIREMAN Unavailable [phone] Paula Reza MD Unavailable Herman, Shahida Cummings APRN STEAM LOCOMOTIVE FIRER/FIREMAN Unavailable Un available Daylin Ludwig Unavailable [phone] Laurel Velasquez MD Unavailable [phone] Daylin Ludwig Unavailable [phone] Paula Reza MD Unavailable Porsha Michaels APRN STEAM LOCOMOTIVE FIRER/FIREMAN Unavailable [phone] Laurel Velasquez MD Unavailable [phone] Herman, Shahida Cummings APRN STEAM LOCOMOTIVE FIRER/FIREMAN Unavailable Un available Marilin Montaño STEAM LOCOMOTIVE FIRER/FIREMAN Unavailable [phone] Esha Dewitt MD Unavailable [phone] Heather Mosquera MD Unavailable [phone] Paula Reza MD Unavailable Esha Dewitt MD Unavailable [phone] Valdo Escamilla PA-C Unavailable [phone] Nohelia Abarca PA-C Unavailable [phone] Heather Mosquera MD Unavailable [phone] Fawad York MD Unavailable [phone] Reason for Visit * Reason Onset Date Comments Refill Request 03/26/2017 Encounter Details Date Type Department Care Team (Late st Contact Info) Description 03/26/2017 MyC Refill [address] [address] Shahida Sutton APRN STEAM LOCOMOTIVE FIRER/FIREMAN Refill Request Social History Tobacco Use Types [...] encounter Miscellaneous Notes * Telephone Encounter - Judith Green RN - 03/28/2017 8:22 AM CST Requested Prescriptions Pending Prescriptions Disp Refills ??? cyclobenzaprine (FLEXERIL) 10 MG tablet 60 tablet 0 There is no refill protocol information for this order Last OV: 03.02.17 Last fill: 01.15.17 #60 R 0 Routing refill request to provider for review/approval because: Drug not on the [facility] refill protocol Judith Green RN, BS Clinical Nurse Triage. FRONT END WEB DEVELOPER * Telephone Encounter - Judith Green RN - 03/28/2017 8:16 AM CST Disp Refills Start End TRISTON cyclobenzaprine (FLEXERIL) 10 MG tablet 60 tablet 0 01/15/2017 No Sig: TAKE 1 TABLET(10 MG) BY MOUTH THREE TIMES DAILY NEEDED FOR MUSCLE SPASMS Last OV: 03.02.17 FRONT END WEB DEVELOPER * Telephone Encounter - Judith Green RN - 03/28/2017 8:15 AM CSTMessage [facility]: Original authorizing provider: DUANE Payton CNP would like a refill of the following medications: cyclobenzaprine (FLEXERIL) 10 MG tablet [Shahida Sutton APRN CNP] Preferred pharmacy: [facility] [address] [place] [address] AT [facility] [address] Comment: FRONT END WEB DEVELOPER documented in this encounter Plan of Treatment Not on file documented as of this encounter Visit Diagnoses Diagnosis Cervicalgia Radicular pain in right arm Neuralgia, neuritis, and radiculitis, unspecified documented in this encounter Additional Health Concerns Infection Onset Date Last Indicated Resolved Time Rule Out COVID-19 02/15/2020 02/15/2020 02/16/2020 2:32 PM JAVA FRONT END WEB DEVELOPER Rule Out COVID-19 01/05/2021 01/05/2021 01/06/2021 12:57 PM CDT ESBL 01/05/2021 01/05/2021 Rule Out COVID-19 06/30/2021 06/30/2021 07/01/2021 9:34 AM CDT Rule Out COVID-19 07/25/2021 07/25/2021 07/25/2021 8:02 PM CDT Assessment Noted Time PHQ-9 Depression Total Score: 6 02/03/20 17 10:57 AM JAVA FRONT END WEB DEVELOPER documented as of this encounter Care Teams Breakfast Manager Relationship Specialty Start Date End Date Shahida Sutton APRN CNP PCP - General Nurse Practitioner 08/17/14 08/04/21 Shahida Sutton APRN CNP PCP - Assigned PCP 07/12/14 05/07/18 Paula Reza MD [address] [place] [address] PCP - General Internal Medicine 08/05/21 Shahida Sutton APRN STEAM LOCOMOTIVE FIRER/FIREMAN Assigned PCP 07/12/14 09/30/21 Carolynn Ramon, KASIE Personal Advocate & Liaison (PAL) 12/17/18 08/07/21 [place] [address] [place] [address] Assigned Musculoskeletal Provider 12/26/19 08/21/20 Brady Lion MD Assigned Heart and Vascular Provider 12/26/19 08/14/20 Nima France PA-C [address] [place] [address] Assigned Surgical Provider 05/19/20 08/21/20 Camille Chandler PA-C [address] [place] [address] Assigned Neuroscience Provider 05/19/20 09/14/20 Anabela Barakat APRN STEAM LOCOMOTIVE FIRER/FIREMAN [address] [place] [address] Assigned Heart and Vascular Provider 08/15/20 08/05/21 Nima France PA-C [address] [place] [address] Assigned Musculoskeletal Provider 08/22/20 11/13/20 Ilia Basilio Naik [address] [facility] [place] [address] Assigned Musculoskeletal Provider 11/14/20 12/04/20 Fawad York MD [address] [place], [place] [address] Assigned Musculoskeletal Provider 12/05/20 02/05/21 Roopa Almonte MD [address] [facility] 200 [place] [address] Endocrinology, Diabetes, and Metabolism 01/19/21 [place] [address] [facility] 300 [place] [address] Assigned Musculoskeletal Provider 02/06/21 09/16/21 Maryse Burton PA-C [address] [place] [address] Physician Engraver Flatware Dermatology 04/14/21 Marquita Starkey MD [address] [facility] 200 [place] [address] Internal Medicine 05/06/21 05/06/21 Roopa Almonte MD [address] [facility] 200 [place] [address] Hospitalist Endocrinology, Diabetes, and Metabolism 05/30/21 Griffin Joshi MD [address] [facility] [address] [place] [address] Cardiovascular Disease 07/25/21 Rina Magallon, RN Lead Centerpuncher 07/29/21 07/11/22 Griffin Joshi MD [address] [place] [address] Assigned Heart and Vascular Provider 08/06/21 10/07/21 Roopa Almonte MD [address] [facility] [address] [place], [place] [address] Assigned Endocrinology Provider 09/10/21 [place] [address] [facility] [place] [address] Assigned Musculoskeletal Provider 09/17/21 10/14/21 Lydia Bernstein PA-C [address] [place] [address] Assigned PCP 10/01/21 10/21/21 Rosa Maria Love CHW Community Health Worker 10/06/21 07/11/22 [place] [address] [facility] [address] [place] [address] Assigned Musculoskeletal Provider 10/15/21 04/26/23 Paula Reza MD [address] [facility] [address] [place], [place] [address] Assigned PCP 10/22/21 12/23/21 Keerthi Miner APRN STEAM LOCOMOTIVE FIRER/FIREMAN [address] [place] [address] Assigned Heart and Vascular Provider 10/08/21 02/10/22 Shahida Sutton APRN STEAM LOCOMOTIVE FIRER/FIREMAN Assigned PCP 12/24/21 03/24/22 Porsha Michaels APRN STEAM LOCOMOTIVE FIRER/FIREMAN [address] [address] Assigned Heart and Vascular Provider 02/11/22 05/12/22 Paula Reza MD [address] [place] [address] Assigned PCP 03/25/22 04/07/22 Shahida Sutton APRN STEAM LOCOMOTIVE FIRER/FIREMAN [address] [place] [address] Assigned PCP 04/08/22 06/30/22 Daylin Ludwig, EP [facility] [address] [address] Cardiac Rehabilitation Therapist 05/16/23 Laurel Velasquez MD [address] [address] Assigned Heart and Vascular Provider 05/13/22 06/30/22 Daylin Ludwig, EP [facility] [address] [address] Cardiac Rehabilitation Therapist 06/08/22 06/09/23 Paula Reza MD [address] [place] [address] Assigned PCP 07/01/22 07/07/22 Porsha Michaels APRN STEAM LOCOMOTIVE FIRER/FIREMAN [address] [place] [address] Assigned Heart and Vascular Provider 07/01/22 07/07/22 Laurel Velasquez MD [address] [place] [address] Assigned Heart and Vascular Provider 07/08/22 08/04/22 Shahida Sutton, DUANE STEAM LOCOMOTIVE FIRER/FIREMAN Assigned PCP 07/08/22 09/08/22 Marilin Montaño, STEAM LOCOMOTIVE FIRER/FIREMAN [address] [place] [address] Assigned Heart and Vascular Provider 08/05/22 Esha Dewitt MD [address] [address] MD Gastroenterology 09/06/22 Heather Mosquera MD [address] [place] [address] Internal Medicine 09/06/22 Paula Reza MD [address] [facility] 200 [place], [place] [address] Assigned PCP 09/09/22 01/05/23 Esha Dewitt MD [address] [address] Assigned Gastroenterology Provider 09/23/22 Valdo Escamilla PA-C [address] [place] [address] Assigned Neuroscience Provider 09/30/22 Nohelia Abarca PA-C [address]50 [place] [address] Physician Engraver Flatware Gastroenterology 10/03/22 Heather Mosquera MD [address] [facility] 150 [place] [address] Assigned PCP 01/06/23 Fawad York MD [address] [place], [place] [address] Assigned Musculoskeletal Provider 04/27/23 06/25/23 documented as of this encounter
--- OUTSIDE RECORDS SUMMARY | 2023-09-18 13:52 | XMS_ITS | Encounter Summary ---
Author Organization [facility] Address [address] [place] [address] Care Team Providers Care Pit Shovel Operator Name Role Phone Shahida Sutton APRN READERS' ADVISORY SERVICE LIBRARIAN Primary Care Provi ford Unavailable Shahida Sutton APRN READERS' ADVISORY SERVICE LIBRARIAN Unavailable Un available Carolynn Ramon RN Unavailable [phone] Augustine Callaway MD Unavailable Brady Lion MD Unavailable Un available Nima France-C Unavailable Camille Chandler PA-C Unavailable [phone] Anabela Barakat APRN READERS' ADVISORY SERVICE LIBRARIAN Unavailable Nima France PA-C Unavailable Basilio Morillo DO Unavailable [phone] Fawad York MD Unavailable Roopa Almonte MD Unavailable Augustine Callaway MD Unavailable Maryse Burton PA-C Unavailable Marquita Starkey MD Unavailable Roopa Almonte MD Unavailable Griffin Joshi MD Unavailable Rina Magallon RN Unavailable [phone] Paula Reza MD Primary Care Provider [phone] Griffin Joshi MD Unavailable Roopa Almonte MD Unavailable [phone] Basilio Morillo DO Unavailable Lydia Bernstein-C Unavailable Rosa Maria Love Unavailable [phone] Augustine Callaway MD Unavailable Paula Reza MD Unavailable Keerthi Miner APRN READERS' ADVISORY SERVICE LIBRARIAN Unavailable [phone] Herman, Shahida Cummings APRN READERS' ADVISORY SERVICE LIBRARIAN Unavailable Un available Porsha Michaels APRN READERS' ADVISORY SERVICE LIBRARIAN Unavailable [phone] Paula Reza MD Unavailable Shahida Sutton APRN READERS' ADVISORY SERVICE LIBRARIAN Unavailable Un available Daylin Ludwig Unavailable [phone] Laurel Velasquez MD Unavailable [phone] Daylin Ludwig Unavailable [phone] Paula Reza MD Unavailable Porsha Michaels APRN READERS' ADVISORY SERVICE LIBRARIAN Unavailable [phone] Laurel Velasquez MD Unavailable [phone] Shahida Sutton FUNCTIONAL DIRECTOR READERS' ADVISORY SERVICE LIBRARIAN Unavailable Un available Marilin Montaño READERS' ADVISORY SERVICE LIBRARIAN Unavailable [phone] Esha Dewitt MD Unavailable [phone] EvelineHeather MD Unavailable [phone] Paula Reza MD Unavailable Esha Dewitt MD Unavailable [phone] Andi Valdo Desouza PA-C Unavailable [phone] Nohelia Abarca PA-C Unavailable [phone] Heather Mosquera MD Unavailable Fawad York MD Unavailable Reason for Visit * Reason Comments Medication Refill Encounter Details Date Type Department Care Team (Late st Contact Info) Description 09/17/[address] [address] Shahida Sutton APRN READERS' ADVISORY SERVICE LIBRARIAN Medication Refill Social History Tobacco Use Types [...] encounter Miscellaneous Notes * Telephone Encounter - Raven Perry RN - 09/17/2018 10:36 AM CDT Prescription approved per [facility] Refill Protocol. Raven Perry RN on 09/17/2018 at 10:38 AM Requested Prescriptions Pending Prescriptions Disp Refills ??? losartan (COZAAR) 50 MG tablet [Pharmacy Med Name: LOSARTAN 50MG TABLETS] 90 tablet 0 Sig: TAKE 1 TABLET(50 MG) BY MOUTH DAILY Angiotensin-II Receptors Passed - 09/17/2018 10:27 AM Passed - Blood pressure under 140/90 in past 12 months BP Readings from Last 3 Encounters: 06/19/18 118/80 06/06/18 167/82 06/03/18 (!) 167/93 Passed - Recent (12 mo) or future (30 days) visit within the authorizing provider's specialty Patient had office visit in the last 12 months or has a visit in the next 30 days with authorizing provider or within the authorizing provider's specialty. See Patient Info tab in inbasket, or Choose Columns in Meds & Orders section of the refill encounter. Passed - Medication is active on med list Passed - Patient is age 18 or older Passed - Normal serum creatinine on file in past 12 months Recent Labs Lab Test 04/15/18 0743 06/11/17 1256 CR 0.83 < > -- CREAT -- -- 0.6* < > = values in this interval not displayed. 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 BUILDING SUPERVISOR Rule Out COVID-19 01/05/2021 01/05/2021 01/06/2021 12:57 PM CDT ESBL 01/05/2021 01/05/2021 Rule Out COVID-19 06/30/2021 06/30/2021 07/01/2021 9:34 AM CDT Rule Out COVID-19 07/25/2021 07/25/2021 07/25/2021 8:02 PM CDT Assessment Noted Time PHQ-9 Depression Total Score: 6 12/21/19 18 7:06 AM CDT documented as of this encounter Care Teams Pit Shovel Operator Relationship Specialty Start Date End Date Shahida Sutton APRN READERS' ADVISORY SERVICE LIBRARIAN PCP - General Nurse Practitioner 08/17/14 08/04/21 Paula Reza MD [address] [facility] [address] [place] [address] PCP - General Internal Medicine 08/05/21 Shahida Sutton APRN READERS' ADVISORY SERVICE LIBRARIAN Assigned PCP 07/12/14 09/30/21 Carolynn Ramon, KASIE Personal Advocate & Liaison (PAL) 12/17/18 08/07/21 [place] [address] [place] [address] Assigned Musculoskeletal Provider 12/26/19 08/21/20 Brady Lion MD Assigned Heart and Vascular Provider 12/26/19 08/14/20 Nima France PA-C [address] [place] [address] Assigned Surgical Provider 05/19/20 08/21/20 Camille Chandler PA-C [address] [place] [address] Assigned Neuroscience Provider 05/19/20 09/14/20 Anabela Barakat APRN READERS' ADVISORY SERVICE LIBRARIAN [address] [place] [address] Assigned Heart and Vascular Provider 08/15/20 08/05/21 Nima France PA-C [address] [facility] [address] [place] [address] Assigned Musculoskeletal Provider 08/22/20 11/13/20 [place] [address] [facility] [place] [address] Assigned Musculoskeletal Provider 11/14/20 12/04/20 Fawad York MD [address] [place], [place] [address] Assigned Musculoskeletal Provider 12/05/20 02/05/21 Roopa Almonte MD [address] [facility] [address] [place] [address] Endocrinology, Diabetes, and Metabolism 01/19/21 [place] [address] [facility] [address] [place] [address] Assigned Musculoskeletal Provider 02/06/21 09/16/21 Maryse Burton PA-C [address] [place] [address] Physician Cemetery Laborer Dermatology 04/14/21 Marquita Starkey MD [address] [facility] [address] [place] [address] Internal Medicine 05/06/21 05/06/21 Roopa Almonte MD [address] [facility] [address] [place] [address] Hospitalist Endocrinology, Diabetes, and Metabolism 05/30/21 Griffin Joshi MD [address] [place] [address] Cardiovascular Disease 07/25/21 Rina Magallon, RN Lead Drywall Professional 07/29/21 07/11/22 Griffin Joshi MD [address] [place] [address] Assigned Heart and Vascular Provider 08/06/21 10/07/21 Roopa Almonte MD [address] [place] [address] [address] [place], [place] [address] Assigned Endocrinology Provider 09/10/21 [place] [address] [facility] [place] [address] Assigned Musculoskeletal Provider 09/17/21 10/14/21 Lydia Bernstein PA-C [address] [place] [address] Assigned PCP 10/01/21 10/21/21 Rosa Maria Love Cristina Community Health Worker 10/06/21 07/11/22 [place] [address] [facility] [address] [place], [place] [address] Assigned Musculoskeletal Provider 10/15/21 04/26/23 Paula Reza MD [address] [facility] [address] [place], [place] [address] Assigned PCP 10/22/21 12/23/21 Keerthi Miner APRN READERS' ADVISORY SERVICE LIBRARIAN [address] [place] [address] Assigned Heart and Vascular Provider 10/08/21 02/10/22 Shahida Sutton APRN READERS' ADVISORY SERVICE LIBRARIAN Assigned PCP 12/24/21 03/24/22 Porsha Michaels APRN READERS' ADVISORY SERVICE LIBRARIAN [address] [place] [address] Assigned Heart and Vascular Provider 02/11/22 05/12/22 Paula Reza MD [address] [place] [address] Assigned PCP 03/25/22 04/07/22 Shahida Sutton, FUNCTIONAL DIRECTOR READERS' ADVISORY SERVICE LIBRARIAN [address] [place] [address] Assigned PCP 04/08/22 06/30/22 Daylin Ludwig, MIKI [facility] [address] [place] [address] Cardiac Rehabilitation Therapist 05/16/23 Laurel Velasquez MD [address] [place] [address] Assigned Heart and Vascular Provider 05/13/22 06/30/22 Daylin Ludwig EP [facility] [address] [place] [address] Cardiac Rehabilitation Therapist 06/08/22 06/09/23 Paula Reza MD [address] [place] [address] Assigned PCP 07/01/22 07/07/22 Porsha Michaels APRN READERS' ADVISORY SERVICE LIBRARIAN [address] [place] [address] Assigned Heart and Vascular Provider 07/01/22 07/07/22 Laurel Velasquez MD [address] [place] [address] Assigned Heart and Vascular Provider 07/08/22 08/04/22 Shahida Sutton APRN READERS' ADVISORY SERVICE LIBRARIAN Assigned PCP 07/08/22 09/08/22 Marilin Montaño, READERS' ADVISORY SERVICE LIBRARIAN [address] [place] [address] Assigned Heart and Vascular Provider 08/05/22 Esha Dewitt MD [address] [facility] [address] [place] [address] Gastroenterology 09/06/22 Heather Mosquera MD [address] [place] [address] Internal Medicine 09/06/22 Paula eRza MD [address] [facility] [address] [place] [address] Assigned PCP 09/09/22 01/05/23 Esha Dewitt MD [address] [facility] [address] [place] [address] Assigned Gastroenterology Provider 09/23/22 Valdo Escamilla PA-C [address] [facility] [address] [place], [place] [address] Assigned Neuroscience Provider 09/30/22 Nohelia Abarca PA-C [address] [place], [place] [address] Physician Cemetery Laborer Gastroenterology 10/03/22 Heather Mosquera MD [address] [address] Assigned PCP 01/06/23 Fawad York MD [address] [place], [place] [address] Assigned Musculoskeletal Provider 04/27/23 06/25/23 documented as of this encounter
--- OUTSIDE RECORDS SUMMARY | 2023-09-18 13:52 | XMS_ITS | Encounter Summary ---
Author Organization [facility] Address [address] [place] [address] Care Team Providers Care Scarfing 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 Name Role Phone Shahida Sutton APRN MASTIC MAN Primary Care Provi ford Unavailable Shahida Sutton APRN MASTIC MAN Unavailable Un available Carolynn Ramon RN Unavailable Augustine Callaway MD Unavailable Brady Lion MD Unavailable Un available Nima France-C Unavailable Camille Chandler PA-C Unavailable [phone] Anabela Barakat APRN MASTIC MAN Unavailable Nima France PA-C Unavailable Basilio Morillo DO Unavailable Fawad York MD Unavailable Roopa Almonte MD Unavailable Augustine Callaway MD Unavailable Maryse Burton PA-C Unavailable [phone] Marquita Starkey MD Unavailable Roopa Almonte MD Unavailable Griffin Joshi MD Unavailable Rina Magallon RN Unavailable [phone] Paula Reza MD Primary Care Provider [phone] Griffin Joshi MD Unavailable Roopa Almonte MD Unavailable [phone] Basilio Morillo DO Unavailable Lydia Bernstein-C Unavailable Rosa Maria Love Unavailable [phone] Augustine Callaway MD Unavailable Paula Reza MD Unavailable Keerthi Miner APRN MASTIC MAN Unavailable [phone] Herman, Shahida Cummings APRN MASTIC MAN Unavailable Un available Porsha Michaels APRN MASTIC MAN Unavailable [phone] Paula Reza MD Unavailable Shahida Sutton APRN MASTIC MAN Unavailable Un available Daylin Ludwig Unavailable [phone] Laurel Velasquez MD Unavailable [phone] Daylin Ludwig Unavailable [phone] Paula Reza MD Unavailable Porsha Michaels APRN MASTIC MAN Unavailable [phone] Laurel Velasquez MD Unavailable [phone] Shahida Sutton FORMAL WAITER/WAITRESS MASTIC MAN Unavailable Un available Marilin Montaño MASTIC MAN Unavailable [phone] Esha Dewitt MD Unavailable [phone] EvelineHeather MD Unavailable [phone] Paula Reza MD Unavailable Esha Dewitt MD Unavailable [phone] Andi Valdo Desouza PA-C Unavailable Nohelia Abarca PA-C Unavailable [phone] Heather Mosquera MD Unavailable Fawad York MD Unavailable Reason for Visit * Reason Comments Medication Refill BASAGLAR 100 U/ML KW IKPEN INJ 3ML Encounter Details Date Type Department Care Team (Late st Contact Info) Description 06/27/[address] [address] Shahida Sutton APRN CNP Medication Refill (BASAGLAR 100 U/ML KWIKPEN INJ 3ML) Social History Tobacco Use Types Packs/Day Years [...] Telephone Encounter - Marilin Cuevas RN - 07/01/2018 12:33 PM CDT Routing refill request to provider for review/approval because: Labs out of range: See below. Marilin Cuevas RN -- [facility] * Telephone Encounter - Neha Garcia - 06/28/2018 11:01 AM CDT Last Written Prescription Date: 06/06/18 Last Fill Quantity: 75ml, # refills: 3 Last office visit: 06/06/2018 with prescribing provider: Jing Roper Future Office Visit: Requested Prescriptions Pending Prescriptions Disp Refills ??? insulin glargine (BASAGLAR KWIKPEN) 100 UNIT/ML pen [Pharmacy Med Name: BASAGLAR 100 U/ML KWIKPEN INJ 3ML] 0 Sig: INJECT 35 UNITS SUBCUTANEOUSLY TWICE DAILY Long Acting Insulin Protocol Passed - 06/27/2018 1:25 PM Passed - Blood pressure less than 140/90 in past 6 months BP Readings from Last 3 Encounters: 06/19/18 118/80 06/06/18 167/82 06/03/18 (!) 167/93 Passed - LDL on file in past 12 months Recent Labs Lab Test 04/15/18 0743 LDL 153* Passed - Microalbumin on file in past 12 months Recent Labs Lab Test 01/30/18 1024 06/28/10 MICROALB -- -- 0.3 MICROL <5 < > -- UMALCR Unable to calculate due to low value < > 3 < > = values in this interval not displayed. Passed - Serum creatinine on file in past 12 months Recent Labs Lab Test 04/15/18 0743 06/11/17 1256 CR 0.83 < > -- CREAT -- -- 0.6* < > = values in this interval not displayed. Passed - HgbA1C in past 3 or 6 months If HgbA1C is 8 or greater, it needs to be on file within the past 3 months. If less than 8, must beon file within the past 6 months. Recent Labs Lab Test 04/15/18 0743 A1C 9.6* Passed - Medication is active on med list Passed - Patient is age 18 or older Passed - Recent (6 mo) or future (30 days) visit within the authorizing provider's specialty Patient had office visit in the last 6 months or has a visit in the next 30 days with authorizing provider or within the authorizing provider's specialty. See Patient Info tab in inbasket, or Choose Columns in Meds & Orders section of the refill encounter. 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 SPECIALIST Rule Out COVID-19 01/05/2021 01/05/2021 01/06/2021 12:57 PM CDT ESBL 01/05/2021 01/05/2021 Rule Out COVID-19 06/30/2021 06/30/2021 07/01/2021 9:34 AM CDT Rule Out COVID-19 07/25/2021 07/25/2021 07/25/2021 8:02 PM CDT Assessment Noted Time PHQ-9 Depression Total Score: 6 12/21/19 18 7:06 AM CDT documented as of this encounter Care Teams Scarfing 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 Relationship Specialty Start Date End Date Shahida Sutton APRN MASTIC MAN PCP - General Nurse Practitioner 08/17/14 08/04/21 Paula Reza MD [address] [facility] [address] [place] [address] PCP - General Internal Medicine 08/05/21 Shahida Sutton APRN MASTIC MAN Assigned PCP 07/12/14 09/30/21 Carolynn Ramon, KASIE Personal Advocate & Liaison (PAL) 12/17/18 08/07/21 [place] [address] [place] [address] Assigned Musculoskeletal Provider 12/26/19 08/21/20 Brady Lion MD Assigned Heart and Vascular Provider 12/26/19 08/14/20 Nima France PA-C [address] [place] [address] Assigned Surgical Provider 05/19/20 08/21/20 Camille Chandler PA-C [address] [facility] [address] [place], [place] [address] Assigned Neuroscience Provider 05/19/20 09/14/20 Anabela Barakat APRN MASTIC MAN [address] [place] [address] Assigned Heart and Vascular Provider 08/15/20 08/05/21 Nima France PA-C [address] [facility] [address] [place] [address] Assigned Musculoskeletal Provider 08/22/20 11/13/20 [place] [address] [place] [address] Assigned Musculoskeletal Provider 11/14/20 12/04/20 Fawad York MD [address] [place], [place] [address] Assigned Musculoskeletal Provider 12/05/20 02/05/21 Roopa Almonte MD [address] [facility] [address] [place] [address] Endocrinology, Diabetes, and Metabolism 01/19/21 [place] [address] [facility] [address] [place] [address] Assigned Musculoskeletal Provider 02/06/21 09/16/21 Maryse Burton PA-C [address] [place] [address] Physician Mill Manager Dermatology 04/14/21 Marquita Starkey MD [address] [facility] [address] [place] [address] Internal Medicine 05/06/21 05/06/21 Roopa Almonte MD [address] [facility] [address] [place] [address] Hospitalist Endocrinology, Diabetes, and Metabolism 05/30/21 Griffin Joshi MD [address] [place] [address] Cardiovascular Disease 07/25/21 Rina Magallon RN Lead Switch Maker 07/29/21 07/11/22 Griffin Joshi MD [address] [place] [address] Assigned Heart and Vascular Provider 08/06/21 10/07/21 Roopa Almonte MD [address] [facility] [address] [place], [place] [address] Assigned Endocrinology Provider 09/10/21 [place] [address] [facility] [place] [address] Assigned Musculoskeletal Provider 09/17/21 10/14/21 Lydia Bernstein PA-C [address] [place] [address] Assigned PCP 10/01/21 10/21/21 Klarissa Lovesay, W Community Health Worker 10/06/21 07/11/22 [place] [address] [place] [address] Assigned Musculoskeletal Provider 10/15/21 04/26/23 Paula Reza MD [address] [place] [address] Assigned PCP 10/22/21 12/23/21 Keerthi Miner APRN MASTIC MAN [address] [place] [address] Assigned Heart and Vascular Provider 10/08/21 02/10/22 Shahida Sutton APRN MASTIC MAN Assigned PCP 12/24/21 03/24/22 Porsha Michaels APRN MASTIC MAN [address] [place] [address] Assigned Heart and Vascular Provider 02/11/22 05/12/22 Paula Reza MD [address] [place] [address] Assigned PCP 03/25/22 04/07/22 Shahida Sutton APRN MASTIC MAN [address] [place] [address] Assigned PCP 04/08/22 06/30/22 Daylin Ludwig EP [facility] [address] [place] [address] Cardiac Rehabilitation Therapist 05/16/23 Laurel Velasquez MD [address] [place] [address] Assigned Heart and Vascular Provider 05/13/22 06/30/22 Daylin Ludwig EP [facility] [address] [place] [address] Cardiac Rehabilitation Therapist 06/08/22 06/09/23 Paula Reza MD [address] [facility] [address] [place], [place] [address] Assigned PCP 07/01/22 07/07/22 Porsha Michaels APRN MASTIC MAN [address] [place] [address] Assigned Heart and Vascular Provider 07/01/22 07/07/22 Laurel Velasquez MD [address] [place] [address] Assigned Heart and Vascular Provider 07/08/22 08/04/22 Shahida Sutton, FORMAL WAITER/WAITRESS MASTIC MAN Assigned PCP 07/08/22 09/08/22 Marilin Montaño, MASTIC MAN [address] [place] [address] Assigned Heart and Vascular Provider 08/05/22 Esha Dewitt MD [address] [place] [address] 36 [place], [place] [address] Gastroenterology 09/06/22 Heather Mosquera MD [address] [place] [address] Internal Medicine 09/06/22 Paula Reza MD [address] [place] [address] Assigned PCP 09/09/22 01/05/23 Esha Dewitt MD [address] [facility] 36 [place], [place] [address] Assigned Gastroenterology Provider 09/23/22 Valdo Escamilla PA-C [address] [facility] [address] [place], [place] [address] Assigned Neuroscience Provider 09/30/22 Nohelia Abarca PA-C [address] [place], [place] [address] Physician Mill Manager Gastroenterology 10/03/22 Heather Mosquera MD [address] [place] [address] Assigned PCP 01/06/23 Fawad York MD [address] [place], [place] [address] Assigned Musculoskeletal Provider 04/27/23 06/25/23 documented as of this encounter
--- OUTSIDE RECORDS SUMMARY | 2023-09-18 13:52 | XMS_ITS | Encounter Summary ---
Author Organization [place] Address [address] [place] [address] Care Team Providers Care Flagger Name Role Phone HermanShahida huerta APRN RECEPTION Primary Care Provi ford Unavailable Herman, Shahida Cummings APRN RECEPTION Unavailable Un available Herman, Shahida Cummings APRN RECEPTION Unavailable Un available Carolynn Ramon RN Unavailable [phone] Augustine Callaway MD Unavailable Brady Lion MD Unavailable Un available Nima France-C Unavailable [phone] Camille Chandler PA-C Unavailable [phone] Anabela Barakat APRN RECEPTION Unavailable Nima France PA-C Unavailable Basilio Morillo DO Unavailable [phone] Fawad [place] MD Unavailable [phone] Roopa Almonte MD Unavailable [phone] Augustine Callaway MD Unavailable Maryse Burton PA-C Unavailable Marquita Starkey MD Unavailable Roopa Almonte MD Unavailable [phone] Griffin Joshi MD Unavailable Rina Magallon RN Unavailable [phone] Paula Reza MD Primary Care Provider [phone] Griffin Joshi MD Unavailable Roopa Almonte MD Unavailable [phone] [facility] Naik Unavailable Lydia Bernstein PA-C Unavailable Rosa Maria Love Unavailable [phone] Augustine Callaway MD Unavailable Paula Reza MD Unavailable Keerthi Miner APRN RECEPTION Unavailable [phone] Herman, Shahida Cummings APRN RECEPTION Unavailable Un available Porsha Michaels APRN RECEPTION Unavailable [phone] Paula Reza MD Unavailable Herman, Shahida Cummings APRN RECEPTION Unavailable Un available Daylin Ludwig Unavailable [phone] Laurel Velasquez MD Unavailable [phone] Daylin Ludwig Unavailable [phone] Paula Reza MD Unavailable Porsha Michaels APRN RECEPTION Unavailable [phone] Laurel Velasquez MD Unavailable [phone] Herman, Shahida Cummings APRN RECEPTION Unavailable Un available Marilin Montaño RECEPTION Unavailable [phone] Esha Dewitt MD Unavailable [phone] Heather Mosquera MD Unavailable [phone] Paula Reza MD Unavailable Esha Dewitt MD Unavailable [phone] Valdo Escamilla PA-C Unavailable [phone] Nohelia Abarca PA-C Unavailable [phone] Heather Mosquera MD Unavailable [phone] Fawad [place] MD Unavailable Reason for Visit * Reason Onset Date Comments Refill Request 04/17/2018 zolpidem Encounter Details Date Type Department Care Team (Late st Contact Info) Description 04/17/2018 MyC Refill [address] [address] Shahida Sutton APRN CNP Refill Request (zolpidem) Social History Tobacco Use Types Packs/Day Years [...] encounter Miscellaneous Notes * Telephone Encounter - Paula Calderon RN - 04/19/2018 9:26 AM CST See mychart refill request, INFORM pt when faxed Last Written Prescription Date: Last Fill Quantity: 30, # refills: 3 Last office visit: 04/15/2018 with prescribing provider: Future Office Visit: Next 5 appointments (look out 90 days) Jun 06, 2018 8:00 AM CDT Return Visit with Jing Roper APRN CNP [facility] [id number] [place] [address]. [facility] [address] Requested Prescriptions Pending Prescriptions Disp Refills ??? zolpidem (AMBIEN) 10 MG tablet 30 tablet 3 Sig: Take 1 tablet (10 mg) by mouth nightly as needed for sleep There is no refill protocol information for this order Paula Calderon RN, BSN Message handled by Nurse Triage. NESS DIRECTOR documented in this encounter Plan of Treatment Not on file documented as of this encounter Visit Diagnoses Diagnosis Other insomnia documented in this encounter Additional Health Concerns Infection Onset Date Last Indicated Resolved Time Rule Out COVID-19 02/15/2020 02/15/2020 02/16/2020 2:32 PM WELLNESS DIRECTOR Rule Out COVID-19 01/05/2021 01/05/2021 01/06/2021 12:57 PM CDT ESBL 01/05/2021 01/05/2021 Rule Out COVID-19 06/30/2021 06/30/2021 07/01/2021 9:34 AM CDT Rule Out COVID-19 07/25/2021 07/25/2021 07/25/2021 8:02 PM CDT Assessment Noted Time PHQ-9 Depression Total Score: 6 12/21/19 18 7:06 AM CDT documented as of this encounter Care Teams Flagger Relationship Specialty Start Date End Date Shahida Sutton APRN RECEPTION PCP - General Nurse Practitioner 08/17/14 08/04/21 Shahida Sutton APRN RECEPTION PCP - Assigned PCP 07/12/14 05/07/18 Paula Reza MD [address] [place] [address] PCP - General Internal Medicine 08/05/21 Shahida Sutton APRN RECEPTION Assigned PCP 07/12/14 09/30/21 Carolynn Ramon RN Personal Advocate & Liaison (PAL) 12/17/18 08/07/21 [place] [address] [place] [address] Assigned Musculoskeletal Provider 12/26/19 08/21/20 Brady Lion MD Assigned Heart and Vascular Provider 12/26/19 08/14/20 Nima France PA-C [address] [facility] [address] [place] [address] Assigned Surgical Provider 05/19/20 08/21/20 Camille Chandler PA-C [address] [facility] [address] [place] [address] Assigned Neuroscience Provider 05/19/20 09/14/20 Anabela Barakat APRN CNP [address] [place] [address] Assigned Heart and Vascular Provider 08/15/20 08/05/21 Nima France PA-C [address] [facility] [address] [place] [address] Assigned Musculoskeletal Provider 08/22/20 11/13/20 [place] [address] [facility] [place] [address] Assigned Musculoskeletal Provider 11/14/20 12/04/20 Fwaad [place] MD [address] [place] [address] Assigned Musculoskeletal Provider 12/05/20 02/05/21 Roopa Almonte MD [address] [facility] 200 [place] [address] Endocrinology, Diabetes, and Metabolism 01/19/21 [place] [address] [facility] 300 [place] [address] Assigned Musculoskeletal Provider 02/06/21 09/16/21 Maryse Burton PA-C [address] [place] [address] Physician Director Voice Dermatology 04/14/21 Marquita Starkey MD [address] [facility] [address] [place] [address] Internal Medicine 05/06/21 05/06/21 Roopa Almonte MD [address] [facility] 200 [place] [address] Hospitalist Endocrinology, Diabetes, and Metabolism 05/30/21 Griffin Joshi MD [address] [facility] [address] [place] [address] Cardiovascular Disease 07/25/21 Rina Magallon, RN Lead Front Office Clerk 07/29/21 07/11/22 Griffin Joshi MD [address] [facility] [address] [facility] [address] [place] [id number] Assigned Heart and Vascular Provider 08/06/21 10/07/21 Roopa Almonte MD [address] [facility] [address] [place], [place] [address] Assigned Endocrinology Provider 09/10/21 [place] [address] [facility] [address] [place] [place] [id number] Assigned Musculoskeletal Provider 09/17/21 10/14/21 Lydia Bernstein PA-C [address] [place] [address] Assigned PCP 10/01/21 10/21/21 Rosa Maria Love CHW Community Health Worker 10/06/21 07/11/22 [place] [address] [place] [address] Assigned Musculoskeletal Provider 10/15/21 04/26/23 Paula Reza MD [address] [place] [address] Assigned PCP 10/22/21 12/23/21 Keerthi Miner APRN RECEPTION [address] [place] [address] Assigned Heart and Vascular Provider 10/08/21 02/10/22 Shahida Sutton APRN RECEPTION Assigned PCP 12/24/21 03/24/22 Porsha Michaels APRN RECEPTION [address] [place] [address] Assigned Heart and Vascular Provider 02/11/22 05/12/22 Paula Reza MD [address] [place] [address] Assigned PCP 03/25/22 04/07/22 Shahida Sutton APRN RECEPTION [address] [place] [address] Assigned PCP 04/08/22 06/30/22 Daylin Ludwig, EP [facility] [address] [place] [address] Cardiac Rehabilitation Therapist 05/16/23 Laurel Velasquez MD [address] [place] [address] Assigned Heart and Vascular Provider 05/13/22 06/30/22 Daylin Ludwig, EP [facility] [address] [place] [address] Cardiac Rehabilitation Therapist 06/08/22 06/09/23 Paula Reza MD [address] [place] [address] Assigned PCP 07/01/22 07/07/22 Porsha Michaels APRN RECEPTION [address] [place] [address] Assigned Heart and Vascular Provider 07/01/22 07/07/22 Laurel Velasquez MD [address] [place] [address] Assigned Heart and Vascular Provider 07/08/22 08/04/22 Shahida Sutton APRN RECEPTION Assigned PCP 07/08/22 09/08/22 Marilin Montaño, PAULA [address] [place] [address] Assigned Heart and Vascular Provider 08/05/22 Esha Dewitt MD [address] [facility] 36 [place] [address] MD Gastroenterology 09/06/22 Heather Mosquera MD [address] [place] [address] Internal Medicine 09/06/22 Paula Reza MD [address] [facility] [address] [place] [address] Assigned PCP 09/09/22 01/05/23 Esha Dewitt MD [address] [facility] 36 [place] [address] Assigned Gastroenterology Provider 09/23/22 Valdo Escamilla PA-C [address] [facility] [address] [place] [id number] Assigned Neuroscience Provider 09/30/22 Nohelia Abarca PA-C [address] [facility] [place] [place] [address] Physician Director Voice Gastroenterology 10/03/22 Heather Mosquera MD [address] [place] [address] Assigned PCP 01/06/23 Fawad [place] MD [address] [place] [address] Assigned Musculoskeletal Provider 04/27/23 06/25/23 documented as of this encounter
--- OUTSIDE RECORDS SUMMARY | 2023-09-18 13:52 | XMS_ITS | Encounter Summary ---
Author Organization [place] Address [address] [place] [address] Care Team Providers Care Plastics Repairer Name Role Phone HeramnShahida huerta APRN PINMAKER Primary Care Provi ford Unavailable Herman, Shahida Cummings APRN PINMAKER Unavailable Un available Herman, Shahida Cummings APRN PINMAKER Unavailable Un available Carolynn Ramon RN Unavailable [phone] Augustine Callaway MD Unavailable Brady Lion MD Unavailable Un available Nima France-C Unavailable [phone] Camille Chandler PA-C Unavailable [phone] Anabela Barakat APRN PINMAKER Unavailable Nima France PA-C Unavailable Basilio Morillo DO Unavailable Fawad [place] MD Unavailable [phone] Roopa Almonte MD Unavailable [phone] Augustine Callaway MD Unavailable Maryse Burton PA-C Unavailable Marquita Starkey MD Unavailable [phone] Roopa Almonte MD Unavailable [phone] Griffin Joshi MD Unavailable Rina Magallon RN Unavailable [phone] Paula Reza MD Primary Care Provider [phone] Girffin Joshi MD Unavailable Roopa Almonte MD Unavailable [phone] [facility] Basilio Naik Unavailable Lydia Bernstein PA-C Unavailable Rosa Maria Love Unavailable [phone] Augustine Callaway MD Unavailable Paula Reza MD Unavailable Keerthi Miner APRN PINMAKER Unavailable [phone] Herman, Shahida Cummings APRN PINMAKER Unavailable Un available Porsha Michaels APRN PINMAKER Unavailable [phone] Paula Reza MD Unavailable Herman, Shahida Cummings APRN PINMAKER Unavailable Un available Daylin Ludwig Unavailable [phone] Laurel Velasquez MD Unavailable [phone] Daylin Ludwig Unavailable [phone] Paula Reza MD Unavailable Porsha Michaels APRN PINMAKER Unavailable [phone] Laurel Velasquez MD Unavailable [phone] Herman, Shahida Cummings APRN PINMAKER Unavailable Un available Marilin Montaño PINMAKER Unavailable [phone] Esha Dewitt MD Unavailable Heather Mosquera MD Unavailable [phone] Paula Reza MD Unavailable Esha Dewitt MD Unavailable [phone] Valdo Escamilla PA-C Unavailable [phone] Nohelia Abarca PA-C Unavailable [phone] Heather Mosquera MD Unavailable Fawad [place] MD Unavailable [phone] Encounter Details Date Type Department Care Team (Late st Contact Info) Description 09/23/2015 MyC Medical Advice [address] [address] Matilde Allen CMA Social History Tobacco Use Types Packs/Day [...] Out COVID-19 02/15/2020 02/15/2020 02/16/2020 2:32 PM 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[employer]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[employer]IES Rule Out COVID-19 01/05/2021 01/05/2021 01/06/2021 12:57 PM CDT ESBL 01/05/2021 01/05/2021 Rule Out COVID-19 06/30/2021 06/30/2021 07/01/2021 9:34 AM CDT Rule Out COVID-19 07/25/2021 07/25/2021 07/25/2021 8:02 PM CDT Assessment Noted Time PHQ-9 Depression Total Score: 8 10/01/19 16 7:13 AM CDT documented as of this encounter Care Teams Plastics Repairer Relationship Specialty Start Date End Date Shahida Sutton APRN PINMAKER PCP - General Nurse Practitioner 08/17/14 08/04/21 Shahida Sutton, DUANE PINMAKER PCP - Assigned PCP 07/12/14 05/07/18 Paula Reza MD [address] [place] [address] PCP - General Internal Medicine 08/05/21 Shahida Sutton, CHILDREN'S ATTENDANT PINMAKER Assigned PCP 07/12/14 09/30/21 Carolynn Ramon, KASIE Personal Advocate & Liaison (PAL) 12/17/18 08/07/21 [place] [address] [address] [place] [address] Assigned Musculoskeletal Provider 12/26/19 08/21/20 Brady Lion MD Assigned Heart and Vascular Provider 12/26/19 08/14/20 Nima France PA-C [address] [place] [address] Assigned Surgical Provider 05/19/20 08/21/20 Camille Chandler PA-C [address] [place] [address] Assigned Neuroscience Provider 05/19/20 09/14/20 Anabela Barakat APRN PINMAKER 1700 [place] [address] Assigned Heart and Vascular Provider 08/15/20 08/05/21 Nima France PA-C [address] [place] [address] Assigned Musculoskeletal Provider 08/22/20 11/13/20 [place] [address] [facility] [place] [address] Assigned Musculoskeletal Provider 11/14/20 12/04/20 Fawad [place] MD [address] [place], [place] [address] Assigned Musculoskeletal Provider 12/05/20 02/05/21 Roopa Almonte MD [address] [facility] [address] [place], [place] [address] Endocrinology, Diabetes, and Metabolism 01/19/21 [place] [address] [facility] [address] [place] [address] Assigned Musculoskeletal Provider 02/06/21 09/16/21 Maryse Burton PA-C [address] [place] [address] Physician Delivery Room Clerk Dermatology 04/14/21 Marquita Starkey MD [address] [facility] [address] [place], [place] [address] Internal Medicine 05/06/21 05/06/21 Roopa Almonte MD [address] [place] [address] Hospitalist Endocrinology, Diabetes, and Metabolism 05/30/21 Griffin Joshi MD [address] [facility] [address] [place] [address] Cardiovascular Disease 07/25/21 Rina Magallon, RN Lead Home Health Care Social Worker 07/29/21 07/11/22 Griffin Joshi MD [address] [place] [address] Assigned Heart and Vascular Provider 08/06/21 10/07/21 Roopa Almonte MD [address] [place] [address] 200 [place] [address] Assigned Endocrinology Provider 09/10/21 [place] [address] [facility] [address] Assigned Musculoskeletal Provider 09/17/21 10/14/21 Lydia Bernstein PA-C [address] [place] [address] Assigned PCP 10/01/21 10/21/21 Rosa Maria Love CHW Community Health Worker 10/06/21 07/11/22 [place] [address] [facility] 300 [place] [address] Assigned Musculoskeletal Provider 10/15/21 04/26/23 Paula Reza MD [address] [facility] 200 [place], [place] [address] Assigned PCP 10/22/21 12/23/21 Keerthi Miner CHILDREN'S ATTENDANT PINMAKER [address] [place] [address] Assigned Heart and Vascular Provider 10/08/21 02/10/22 Shahida Sutton APRN PINMAKER Assigned PCP 12/24/21 03/24/22 Porsha Michaels APRN PINMAKER [address] [place] [address] Assigned Heart and Vascular Provider 02/11/22 05/12/22 Paula Reza MD [address] [facility] 200 [place] [address] Assigned PCP 03/25/22 04/07/22 Shahida Sutton CHILDREN'S ATTENDANT PINMAKER [address] [place] [address] Assigned PCP 04/08/22 06/30/22 Daylin Ludwig, MIKI [facility] [address] [place] [address] Cardiac Rehabilitation Therapist 05/16/23 Laurel Velasquez MD [address] [place] [address] Assigned Heart and Vascular Provider 05/13/22 06/30/22 Daylin Ludwig, MIKI [facility] [address] [place] [address] Cardiac Rehabilitation Therapist 06/08/22 06/09/23 Paula Reza MD [address] [place] [address] Assigned PCP 07/01/22 07/07/22 Porsha Michaels APRN PINMAKER [address] [place] [address] Assigned Heart and Vascular Provider 07/01/22 07/07/22 Laurel Velasquez MD [address] [place] [address] Assigned Heart and Vascular Provider 07/08/22 08/04/22 Shahida Sutton APRN PINMAKER Assigned PCP 07/08/22 09/08/22 Marilin Montaño PINMAKER [address] [place] [address] Assigned Heart and Vascular Provider 08/05/22 Esha Dewitt MD [address] [place] [address] Gastroenterology 09/06/22 Heather Mosquera MD [address] [place] [address] Internal Medicine 09/06/22 Paula Reza MD [address] [place] [address] Assigned PCP 09/09/22 01/05/23 Esha Dewitt MD [address] [place] [address] Assigned Gastroenterology Provider 09/23/22 Valdo Escamilla PA-C [address] [facility] [address] [place] [address] Assigned Neuroscience Provider 09/30/22 Nohelia Abarca PA-C [address]50 [place] [address] Physician Delivery Room Clerk Gastroenterology 10/03/22 Heather Mosquera MD 6545 [facility] 150 [place] [address] Assigned PCP 01/06/23 Fawad [place] MD [address]09 [place] [address] Assigned Musculoskeletal Provider 04/27/23 06/25/23 documented as of this encounter
--- OUTSIDE RECORDS SUMMARY | 2023-09-18 13:52 | XMS_ITS | Encounter Summary ---
Author Organization [facility] Address [address] [place] [address] Care Team Providers Care Cow Washer Name Role Phone HermanShahida huerta APRN PUTTY REMOVER Primary Care Provi ford Unavailable Herman, Shahida Cummings APRN PUTTY REMOVER Unavailable Un available Herman, Shahida Cummings APRN PUTTY REMOVER Unavailable Un available Carolynn Ramon RN Unavailable [phone] Augustine Callaway MD Unavailable Brady Lion MD Unavailable Un available Nima France-C Unavailable [phone] Camille Chandler PA-C Unavailable [phone] Anabela Barakat APRN PUTTY REMOVER Unavailable Nima France PA-C Unavailable Basilio Morillo DO Unavailable Fawad York MD Unavailable [phone] Roopa Almonte MD Unavailable [phone] Augustine Callaway MD Unavailable Maryse Burton PA-C Unavailable Marquita Starkey MD Unavailable [phone] Roopa Almonte MD Unavailable [phone] Griffin Joshi MD Unavailable Rina Magallon RN Unavailable [phone] Paula Reza MD Primary Care Provider [phone] Griffin Joshi MD Unavailable Roopa Almonte MD Unavailable [phone] [facility] Basilio Naik Unavailable Lydia Bernstein PA-C Unavailable Rosa Maria Love Unavailable [phone] Augustine Clalaway MD Unavailable Paula Reza MD Unavailable Keerthi Miner APRN PUTTY REMOVER Unavailable [phone] Herman, Shahida Cummings APRN PUTTY REMOVER Unavailable Un available Porsha Michaels APRN PUTTY REMOVER Unavailable [phone] Paula Reza MD Unavailable Herman, Shahida Cummings APRN PUTTY REMOVER Unavailable Un available Daylin Ludwig Unavailable [phone] Laurel Velasquez MD Unavailable [phone] Daylin Ludwig Unavailable [phone] Paula Reza MD Unavailable Porsha Michaels APRN PUTTY REMOVER Unavailable [phone] Laurel Velasquez MD Unavailable [phone] Herman, Shahida Cummings APRN PUTTY REMOVER Unavailable Un available Marilin Montaño PUTTY REMOVER Unavailable [phone] Esha Dewitt MD Unavailable [phone] Heather Mosquera MD Unavailable [phone] Paula Reza MD Unavailable Esha Dewitt MD Unavailable [phone] Valdo Escamilla PA-C Unavailable Nohelia Abarca PA-C Unavailable Heather Mosquera MD Unavailable Fawad York MD Unavailable [phone] Reason for Visit * Reason Comments Medication Refill GABAPENTIN 300MG MIGUEL CORBIN Encounter Details Date Type Department Care Team (Late st Contact Info) Description 08/21/[address] [address] Shahida Sutton APRN CNP Medication Refill (GABAPENTIN 300MG CAPSULES) Social History Tobacco Use Types Packs/Day Years [...] encounter Miscellaneous Notes * Telephone Encounter - Shanon Mack RN - 08/23/2016 3:08 PM CDT Routing refill request to provider for review/approval because: Drug not on the [facility] refill protocol A break in medication Per 06/12/2016 JOSSELYN note: recommended an MRI if pain persists. -Follow up in 1 week if pain does not improve, at that time will obtain an MRI for further evaluation. RX monitoring program ([place]) reviewed: COMPUTER CUSTOMER SUPPORT SPECIALIST reviewed- no concerns Last Fills: Gabapentin- 07/11/2016, #270; 05/25/2016, #270 Clint- 08/10/2016, #30; 07/11/2016, #120 Adderall- 07/29/2016, #60 06/30/2016, #60 Ambien- 07/28/2016,#30 06/29/2016, #30 [place] profile: [email or web address] Shanon Holliday RN, BSN, PHN [facility] RN * Telephone Encounter - Pranav Maysen - 08/21/2016 1:28 PM CDT GABAPENTIN 300MG CAPSULES Last Written Prescription Date: 05-25-2016 Last Fill Quantity: 07-11-2016, #270 refills: 1 Last Office Visit with [facility] prescribing provider: 06-12-2016 Shahida Sutton. Next 5 appointments (look out 90 days) Sep 19, 2016 8:00 AM CDT Return Visit with Jing Roper APRN [facility] ([facility]) [address] [place] [phone] Sep 20, 2016 10:00 AM CDT Nurse Only with HEALTH SYSTEMS INTEGRATION ANALYST - REGION 5 [facility] ([facility]) [address] [place] [phone] documented in this encounter Plan of Treatment Not on file documented as of this encounter Visit Diagnoses Diagnosis Other chronic pain documented in this encounter Additional Health Concerns Infection Onset Date Last Indicated Resolved Time Rule Out COVID-19 02/15/2020 02/15/2020 02/16/2020 2:32 PM 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 Rule Out COVID-19 01/05/2021 01/05/2021 01/06/2021 12:57 PM CDT ESBL 01/05/2021 01/05/2021 Rule Out COVID-19 06/30/2021 06/30/2021 07/01/2021 9:34 AM CDT Rule Out COVID-19 07/25/2021 07/25/2021 07/25/2021 8:02 PM CDT Assessment Noted Time PHQ-9 Depression Total Score: 5 05/27/19 17 7:07 AM CDT documented as of this encounter Care Teams Cow Washer Relationship Specialty Start Date End Date Shahida Sutton APRN PUTTY REMOVER PCP - General Nurse Practitioner 08/17/14 08/04/21 Shahida Sutton APRN PUTTY REMOVER PCP - Assigned PCP 07/12/14 05/07/18 Paula Reza MD [address] [facility] [address] [place] [address] PCP - General Internal Medicine 08/05/21 Shahida Sutton APRN PUTTY REMOVER Assigned PCP 07/12/14 09/30/21 Carolynn Ramon RN Personal Advocate & Liaison (PAL) 12/17/18 08/07/21 [place] [address] [place] [address] Assigned Musculoskeletal Provider 12/26/19 08/21/20 Brady Lion MD Assigned Heart and Vascular Provider 12/26/19 08/14/20 Nima France PA-C [address] [facility] [address] [place] [address] Assigned Surgical Provider 05/19/20 08/21/20 Camille Chandler PA-C [address] [facility] [address] [place] [address] Assigned Neuroscience Provider 05/19/20 09/14/20 Anabela Barakat APRN PUTTY REMOVER [address] [place] [address] Assigned Heart and Vascular Provider 08/15/20 08/05/21 Nima France PA-C [address] [facility] [address] [place], [place] [address] Assigned Musculoskeletal Provider 08/22/20 11/13/20 [place] [address] [facility] [place], [place] [address] Assigned Musculoskeletal Provider 11/14/20 12/04/20 Fawad York MD [address] [place], [place] [address] Assigned Musculoskeletal Provider 12/05/20 02/05/21 Roopa Almonte MD [address] [facility] [address] [place] [address] Endocrinology, Diabetes, and Metabolism 01/19/21 [place] [address] [facility] [address] [place], [place] [address] Assigned Musculoskeletal Provider 02/06/21 09/16/21 Maryse Burton PA-C [address] [place] [address] Physician Propagator Dermatology 04/14/21 Marquita Starkey MD [address] [facility] [address] [place], [place] [address] Internal Medicine 05/06/21 05/06/21 Roopa Almonte MD [address] [facility] [address] [place], [place] [address] Hospitalist Endocrinology, Diabetes, and Metabolism 05/30/21 Griffin Joshi MD [address] [facility] [address] [place] [address] Cardiovascular Disease 07/25/21 Rina Magallon, RN Lead Counselor Aide 07/29/21 07/11/22 Griffin Joshi MD [address] [place] [address] Assigned Heart and Vascular Provider 08/06/21 10/07/21 Roopa Almonte MD [address] [place] [address] 200 [place] [address] Assigned Endocrinology Provider 09/10/21 [place] [address] [facility] [place] [address] Assigned Musculoskeletal Provider 09/17/21 10/14/21 Lydia Bernstein PA-C [address] [facility] [address] [place] [address] Assigned PCP 10/01/21 10/21/21 Rosa Maria Love CHW Community Health Worker 10/06/21 07/11/22 [place] [address] [facility] [facility] [address] [place] [address] Assigned Musculoskeletal Provider 10/15/21 04/26/23 Paula Reza MD [address] [place] [address] Assigned PCP 10/22/21 12/23/21 Keerthi Miner APRN PUTTY REMOVER [address] [place] [address] Assigned Heart and Vascular Provider 10/08/21 02/10/22 Shahida Sutton APRN PUTTY REMOVER Assigned PCP 12/24/21 03/24/22 Porsha Michaels APRN PUTTY REMOVER [address] [place] [address] Assigned Heart and Vascular Provider 02/11/22 05/12/22 Paula Reza MD [address] [place] [address] Assigned PCP 03/25/22 04/07/22 Shahida Sutton APRN PUTTY REMOVER [address] [place] [address] Assigned PCP 04/08/22 06/30/22 Daylin Ludwig, EP [facility] [address] [place] [place] [address] Cardiac Rehabilitation Therapist 05/16/23 Laurel Velasquez MD [address] [place] [address] Assigned Heart and Vascular Provider 05/13/22 06/30/22 Daylin Ludwig, EP [facility] [address] [place] [address] Cardiac Rehabilitation Therapist 06/08/22 06/09/23 Paula Reza MD [address] [place], [place] [address] Assigned PCP 07/01/22 07/07/22 Porsha Michaels APRN PUTTY REMOVER [address] [place] [address] Assigned Heart and Vascular Provider 07/01/22 07/07/22 Laurel Velasquez MD [address] [place] [address] Assigned Heart and Vascular Provider 07/08/22 08/04/22 Shahida Sutton APRN PUTTY REMOVER Assigned PCP 07/08/22 09/08/22 Marilin Montaño, PUTTY REMOVER [address] [place] [address] Assigned Heart and Vascular Provider 08/05/22 Esha Dewitt MD [address] [place] [address] [address] [place], [place] [address] Gastroenterology 09/06/22 Heather Mosquera MD [address] [facility] [place] [address] Internal Medicine 09/06/22 Paula Reza MD [address] [place] [address] Assigned PCP 09/09/22 01/05/23 Esha Dewitt MD [address] [facility] 36 [place] [address] Assigned Gastroenterology Provider 09/23/22 Valdo Escamilla PA-C [address] [facility] [address] [place] [address] Assigned Neuroscience Provider 09/30/22 Nohelia Abarca PA-C [address] [place] [address] Physician Propagator Gastroenterology 10/03/22 Heather Mosquera MD [address] [place] [address] Assigned PCP 01/06/23 Fawad York MD [address] [place] [address] Assigned Musculoskeletal Provider 04/27/23 06/25/23 documented as of this encounter
--- OUTSIDE RECORDS SUMMARY | 2023-09-18 13:52 | XMS_ITS | Encounter Summary ---
Author Organization [facility] Address [address] [place] [address] Care Team Providers Care Bindery Worker Name Role Phone HermanShahida huerta APRN POT OPERATOR Primary Care Provi ford Unavailable Herman, Shahida Cummings APRN POT OPERATOR Unavailable Un available Herman, Shahida Cummings APRN POT OPERATOR Unavailable Un available Carolynn Ramon RN Unavailable [phone] Augustine Callaway MD Unavailable Brady Lion MD Unavailable Un available Nima France-C Unavailable [phone] Camille Chandler PA-C Unavailable [phone] Anabela Barakat APRN POT OPERATOR Unavailable Nima France PA-C Unavailable Basilio Morillo DO Unavailable [phone] Fawad York MD Unavailable [phone] Roopa Almonte MD Unavailable [phone] Augustine Callaway MD Unavailable Maryse Burton PA-C Unavailable Marquita Starkey MD Unavailable Roopa Almonte MD Unavailable [phone] Griffin Joshi MD Unavailable Rina Magallon RN Unavailable [phone] Paula Reza MD Primary Care Provider [phone] Griffin Joshi MD Unavailable Roopa Almonte MD Unavailable [phone] [facility] Basilio Naik Unavailable Lydia Bernstein PA-C Unavailable Rosa Maria Love Unavailable [phone] Augustine Callaway MD Unavailable Paula Reza MD Unavailable Keerthi Miner APRN POT OPERATOR Unavailable [phone] Herman, Shahida Cummings APRN POT OPERATOR Unavailable Un available Porsha Michaels APRN POT OPERATOR Unavailable [phone] Paula Reza MD Unavailable Herman, Shahida Cummings APRN POT OPERATOR Unavailable Un available Daylin Ludwig Unavailable [phone] Laurel Velasquez MD Unavailable [phone] Daylin Ludwig Unavailable [phone] Paula Reza MD Unavailable Porsha Michaels APRN POT OPERATOR Unavailable [phone] Laurel Velasquez MD Unavailable [phone] Herman, Shahida Cummings APRN POT OPERATOR Unavailable Un available Marilin Montaño POT OPERATOR Unavailable [phone] Esha Dewitt MD Unavailable Heather Mosquera MD Unavailable [phone] Paula Reza MD Unavailable Esha Dewitt MD Unavailable [phone] Valdo Escamilla PA-C Unavailable Nohelia Abarca PA-C Unavailable [phone] Heather Mosquera MD Unavailable [phone] Fawad York MD Unavailable [phone] Encounter Details Date Type Department Care Team (Late st Contact Info) Description 12/28/2015 MyC Medical Advice [address] [address] Matilde Allen CMA Social History [...] Out COVID-19 02/15/2020 02/15/2020 02/16/2020 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 Rule Out COVID-19 01/05/2021 01/05/2021 01/06/2021 12:57 PM CDT ESBL 01/05/2021 01/05/2021 Rule Out COVID-19 06/30/2021 06/30/2021 07/01/2021 9:34 AM CDT Rule Out COVID-19 07/25/2021 07/25/2021 07/25/2021 8:02 PM CDT Assessment Noted Time PHQ-9 Depression Total Score: 7 11/17/19 16 7:18 AM CDT documented as of this encounter Care Teams Bindery Worker Relationship Specialty Start Date End Date Shahida Sutton APRN POT OPERATOR PCP - General Nurse Practitioner 08/17/14 08/04/21 Shahida Sutton, DUANE POT OPERATOR PCP - Assigned PCP 07/12/14 05/07/18 Paula Reza MD [address] [place] [address] PCP - General Internal Medicine 08/05/21 Shahida Sutton, CIGARETTE PACKER POT OPERATOR Assigned PCP 07/12/14 09/30/21 Carolynn Ramon, KASIE Personal Advocate & Liaison (PAL) 12/17/18 08/07/21 [place] [address] [address] [place] [address] Assigned Musculoskeletal Provider 12/26/19 08/21/20 Brady Lion MD Assigned Heart and Vascular Provider 12/26/19 08/14/20 Nima France PA-C [address] [facility] [place] [address] Assigned Surgical Provider 05/19/20 08/21/20 Camille Chandler PA-C [address] [place] [address] Assigned Neuroscience Provider 05/19/20 09/14/20 Anabela Barakat APRN POT OPERATOR [address] [place] [address] Assigned Heart and Vascular Provider 08/15/20 08/05/21 Nima France PA-C [address] [facility] [place] [address] Assigned Musculoskeletal Provider 08/22/20 11/13/20 [place] [address] [facility] [place] [address] Assigned Musculoskeletal Provider 11/14/20 12/04/20 Fawad York MD [address] [place], [place] [address] Assigned Musculoskeletal Provider 12/05/20 02/05/21 Roopa Almonte MD [address] [facility] [address] [place], [place] [address] Endocrinology, Diabetes, and Metabolism 01/19/21 [place] [address] [facility] [address] [place] [address] Assigned Musculoskeletal Provider 02/06/21 09/16/21 Maryse Burton PA-C [address] [place] [address] Physician Ground Support Equipment Mechanic Dermatology 04/14/21 Marquita Starkey MD [address] [facility] [address] [place], [place] [address] Internal Medicine 05/06/21 05/06/21 Roopa Almonte MD [address] [place] [address] Hospitalist Endocrinology, Diabetes, and Metabolism 05/30/21 Griffin Joshi MD [address] [facility] [facility] [address] [place] [address] Cardiovascular Disease 07/25/21 Rina Magallon, RN Lead Health Information Tech 07/29/21 07/11/22 Griffin Joshi MD [address] [place] [address] Assigned Heart and Vascular Provider 08/06/21 10/07/21 Roopa Almonte MD [address] [place] [address] 200 [place] [address] Assigned Endocrinology Provider 09/10/21 [place] [address] [facility] [place] [address] Assigned Musculoskeletal Provider 09/17/21 10/14/21 Lydia Bernstein PA-C [address] [place] [address] Assigned PCP 10/01/21 10/21/21 Rosa Maria Love CHW Community Health Worker 10/06/21 07/11/22 [place] [address] [facility] [address] [place] [address] Assigned Musculoskeletal Provider 10/15/21 04/26/23 Paula Reza MD [address] [facility] [address] [place], [place] [address] Assigned PCP 10/22/21 12/23/21 Keerthi Miner CIGARETTE PACKER POT OPERATOR [address] [place] [address] Assigned Heart and Vascular Provider 10/08/21 02/10/22 Shahida Sutton APRN POT OPERATOR Assigned PCP 12/24/21 03/24/22 Porsha Michaels APRN POT OPERATOR [address] [place] [address] Assigned Heart and Vascular Provider 02/11/22 05/12/22 Paula Reza MD [address] [facility] 200 [place] [address] Assigned PCP 03/25/22 04/07/22 Shahida Sutton CIGARETTE PACKER POT OPERATOR [address] [place] [address] Assigned PCP 04/08/22 06/30/22 Daylin Ludwig, [facility] [address] [place] [address] Cardiac Rehabilitation Therapist 05/16/23 Laurel Velasquez MD [address] [place] [address] Assigned Heart and Vascular Provider 05/13/22 06/30/22 Daylin Ludwig, [facility] [address] [place] [address] Cardiac Rehabilitation Therapist 06/08/22 06/09/23 Paula Reza MD [address] [place] [address] Assigned PCP 07/01/22 07/07/22 Porsha Michaels APRN POT OPERATOR [address] [place] [address] Assigned Heart and Vascular Provider 07/01/22 07/07/22 Laurel Velasquez MD [address] [place] [address] Assigned Heart and Vascular Provider 07/08/22 08/04/22 Shahida Sutton APRN POT OPERATOR Assigned PCP 07/08/22 09/08/22 Marilin Montaño POT OPERATOR [address] [place] [address] Assigned Heart and Vascular Provider 08/05/22 Esha Dewitt MD [address] [place] [address] Gastroenterology 09/06/22 Heather Mosquera MD [address] [place] [address] Internal Medicine 09/06/22 Paula Reza MD [address] [place] [address] Assigned PCP 09/09/22 01/05/23 Esha Dewitt MD [address] [place] [address] Assigned Gastroenterology Provider 09/23/22 Valdo Escamilla PA-C [address] [facility] [address] [place] [address] Assigned Neuroscience Provider 09/30/22 Nohelia Abarca PA-C [address] [place] [address] Physician Ground Support Equipment Mechanic Gastroenterology 10/03/22 Heather Mosquera MD [address] [facility] 150 [place] [address] Assigned PCP 01/06/23 Fawad York MD [address] [place] [address] Assigned Musculoskeletal Provider 04/27/23 06/25/23 documented as of this encounter
--- OUTSIDE RECORDS SUMMARY | 2023-09-18 13:52 | XMS_ITS | Encounter Summary ---
Author Organization [facility] Address [address] [place] [address] Care Team Providers Care Police Surgeon Name Role Phone HermanShahida huerta APRN CYBER SYSTEMS ADMINISTRATOR Primary Care Provi ford Unavailable Herman, Shahida Cummings APRN CYBER SYSTEMS ADMINISTRATOR Unavailable Un available Herman, Shahida Cummings APRN CYBER SYSTEMS ADMINISTRATOR Unavailable Un available Carolynn Ramon RN Unavailable [phone] Augustine Callaway MD Unavailable Brady Lion MD Unavailable Un available Nima France-C Unavailable [phone] Camille Chandler PA-C Unavailable [phone] Anabela Barakat APRN CYBER SYSTEMS ADMINISTRATOR Unavailable Nima France PA-C Unavailable Basilio Morillo DO Unavailable Fawad York MD Unavailable [phone] Roopa Almonte MD Unavailable [phone] Augustine Callaway MD Unavailable Maryse Burton PA-C Unavailable [phone] Marquita Starkey MD Unavailable Roopa Almonte MD Unavailable [phone] Griffin Joshi MD Unavailable Rina Magallon RN Unavailable [phone] Paula Reza MD Primary Care Provider [phone] Griffin Joshi MD Unavailable Roopa Almonte MD Unavailable [phone] [facility] Basilio Naik Unavailable Lydia Bernstein PA-C Unavailable Rosa Maria Love Unavailable [phone] Augustine Callaway MD Unavailable Paula Reza MD Unavailable Keerthi Mnier APRN CYBER SYSTEMS ADMINISTRATOR Unavailable [phone] Herman, Shahida Cummings APRN CYBER SYSTEMS ADMINISTRATOR Unavailable Un available Porsha Michaels APRN CYBER SYSTEMS ADMINISTRATOR Unavailable [phone] Paula Reza MD Unavailable Herman, Shahida Cummings APRN CYBER SYSTEMS ADMINISTRATOR Unavailable Un available Daylin Ludwig Unavailable [phone] Laurel Velasquez MD Unavailable [phone] Daylin Ludwig Unavailable [phone] Paula Reza MD Unavailable Porsha iMchaels APRN CYBER SYSTEMS ADMINISTRATOR Unavailable [phone] Laurel Velasquez MD Unavailable [phone] Herman, Shahida Cummings APRN CYBER SYSTEMS ADMINISTRATOR Unavailable Un available Marilin Montaño CYBER SYSTEMS ADMINISTRATOR Unavailable [phone] Esha Dewitt MD Unavailable [phone] Heather Mosquera MD Unavailable [phone] Paula Reza MD Unavailable Esha Dewitt MD Unavailable [phone] Valdo Escamilla PA-C Unavailable Nohelia Abarca PA-C Unavailable Heather Mosquera MD Unavailable Fawad York MD Unavailable [phone] Encounter Details Date Type Department Care Team (Late st Contact Info) Description 04/07/2015 MyC Medical Advice [address] [address] Matilde Allen CMA Social History [...] Out COVID-19 02/15/2020 02/15/2020 02/16/2020 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 Rule Out COVID-19 01/05/2021 01/05/2021 01/06/2021 12:57 PM CDT ESBL 01/05/2021 01/05/2021 Rule Out COVID-19 06/30/2021 06/30/2021 07/01/2021 9:34 AM CDT Rule Out COVID-19 07/25/2021 07/25/2021 07/25/2021 8:02 PM CDT Assessment Noted Time PHQ-9 Depression Total Score: 5 01/31/20 15 7:38 AM REHABILITATION THERAPY TECHNICIAN documented as of this encounter Care Teams Police Surgeon Relationship Specialty Start Date End Date Shahida Sutton APRN CYBER SYSTEMS ADMINISTRATOR PCP - General Nurse Practitioner 08/17/14 08/04/21 Shahida Sutton, DUANE CYBER SYSTEMS ADMINISTRATOR PCP - Assigned PCP 07/12/14 05/07/18 Paula Reza MD [address] [place] [address] PCP - General Internal Medicine 08/05/21 Shahida Sutton, CHIEF DEVELOPMENT OFFICER CYBER SYSTEMS ADMINISTRATOR Assigned PCP 07/12/14 09/30/21 Carolynn Ramon, KASIE Personal Advocate & Liaison (PAL) 12/17/18 08/07/21 [place] [address] [address] [place] [address] Assigned Musculoskeletal Provider 12/26/19 08/21/20 Brady Lion MD Assigned Heart and Vascular Provider 12/26/19 08/14/20 Nima France PA-C [address] [facility] [address] [place] [address] Assigned Surgical Provider 05/19/20 08/21/20 Camille Chandler PA-C [address] [facility] [address] [place] [address] Assigned Neuroscience Provider 05/19/20 09/14/20 Anabela Barakat APRN CYBER SYSTEMS ADMINISTRATOR [address] [place] [address] Assigned Heart and Vascular Provider 08/15/20 08/05/21 Nima France PA-C [address] [place] [address] Assigned Musculoskeletal Provider 08/22/20 11/13/20 [place] [address] [facility] [place] [address] Assigned Musculoskeletal Provider 11/14/20 12/04/20 Fawad Yokr MD [address] [place], [place] [address] Assigned Musculoskeletal Provider 12/05/20 02/05/21 Roopa Almonte MD [address] [facility] [address] [place] [address] Endocrinology, Diabetes, and Metabolism 01/19/21 [place] [address] [facility] [address] [place] [address] Assigned Musculoskeletal Provider 02/06/21 09/16/21 Maryse Burton PA-C [address] [place] [address] Physician Photo 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 Dermatology 04/14/21 Marquita Starkey MD [address] [facility] [address] [place] [address] Internal Medicine 05/06/21 05/06/21 Roopa Almonte MD [address] [place] [address] Hospitalist Endocrinology, Diabetes, and Metabolism 05/30/21 Griffin Joshi MD [address] [facility] [address] [place] [address] Cardiovascular Disease 07/25/21 Rina Magallon, RN Lead Statistician Theoretical 07/29/21 07/11/22 Griffin Joshi MD [address] [place] [address] Assigned Heart and Vascular Provider 08/06/21 10/07/21 Roopa Almonte MD [address] [place] [address] 200 [place], [place] [address] Assigned Endocrinology Provider 09/10/21 [place] [address] [facility] [place] [address] Assigned Musculoskeletal Provider 09/17/21 10/14/21 Lydia Bernstein PA-C [address] [facility] [address] [place] [address] Assigned PCP 10/01/21 10/21/21 Rosa Maria Love CHW Community Health Worker 10/06/21 07/11/22 [place] [address] [facility] [address] [place] [address] Assigned Musculoskeletal Provider 10/15/21 04/26/23 Paula Reza MD [address] [facility] [address] [place], [place] [address] Assigned PCP 10/22/21 12/23/21 Keerthi Miner APRN CYBER SYSTEMS ADMINISTRATOR [address] [place] [address] Assigned Heart and Vascular Provider 10/08/21 02/10/22 Shahida Sutton APRN CYBER SYSTEMS ADMINISTRATOR Assigned PCP 12/24/21 03/24/22 Porsha Michaels APRN CYBER SYSTEMS ADMINISTRATOR [address] [place] [address] Assigned Heart and Vascular Provider 02/11/22 05/12/22 Paula Reza MD [address] [facility] 200 [place] [address] Assigned PCP 03/25/22 04/07/22 Shahida Sutton CHIEF DEVELOPMENT OFFICER CYBER SYSTEMS ADMINISTRATOR [address] [place] [address] Assigned PCP 04/08/22 06/30/22 Daylin Ludwig, MIKI [facility] [address] [place] [address] Cardiac Rehabilitation Therapist 05/16/23 Laurel Velasquez MD [address] [place] [address] Assigned Heart and Vascular Provider 05/13/22 06/30/22 Daylin Ludwig, MIKI [facility] [address] [place] [address] Cardiac Rehabilitation Therapist 06/08/22 06/09/23 Paula Reza MD [address] [place] [address] Assigned PCP 07/01/22 07/07/22 Porsha Michaels APRN CYBER SYSTEMS ADMINISTRATOR [address] [place] [address] Assigned Heart and Vascular Provider 07/01/22 07/07/22 Laurel Velasquez MD [address] [place] [address] Assigned Heart and Vascular Provider 07/08/22 08/04/22 Shahida Sutton APRN CYBER SYSTEMS ADMINISTRATOR Assigned PCP 07/08/22 09/08/22 Marilin Montaño, CYBER SYSTEMS ADMINISTRATOR [address] [place] [address] Assigned Heart and Vascular Provider 08/05/22 Esha Dewitt MD [address] [place] [address] Gastroenterology 09/06/22 Heather Mosquera MD [address] [place] [address] Internal Medicine 09/06/22 Paula Reza MD [address] [place] [address] Assigned PCP 09/09/22 01/05/23 Esha Dewitt MD [address] [place] [address] Assigned Gastroenterology Provider 09/23/22 Valdo Escamilla PA-C [address] [facility] [address] [place] [address] Assigned Neuroscience Provider 09/30/22 Nohelia Abarca PA-C [address] [place] [address] Physician Photo 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 Gastroenterology 10/03/22 Heather Mosquera MD [address]45 [facility] 150 [place] [address] Assigned PCP 01/06/23 Fawad York MD [address] [place] [address] Assigned Musculoskeletal Provider 04/27/23 06/25/23 documented as of this encounter
--- OUTSIDE RECORDS SUMMARY | 2023-09-18 13:52 | XMS_ITS | Encounter Summary ---
Author Organization [facility] Address [address] [place] [address] Care Team Providers Care Executive Director Of Marketing Name Role Phone HermanShahida huerta APRN MILL REPRESENTATIVE Primary Care Provi ford Unavailable Herman, Shahida Cummings APRN MILL REPRESENTATIVE Unavailable Un available Herman, Shahida Cummings APRN MILL REPRESENTATIVE Unavailable Un available Carolynn Ramon RN Unavailable [phone] Augustine Callaway MD Unavailable Brady Lion MD Unavailable Un available Nima France-C Unavailable [phone] Camille Chandler PA-C Unavailable [phone] Anabela Barakat APRN MILL REPRESENTATIVE Unavailable Nima France PA-C Unavailable Basilio Morillo DO Unavailable [phone] Fawad York MD Unavailable [phone] Roopa Almonte MD Unavailable [phone] Augustine Callaway MD Unavailable Maryse Burton PA-C Unavailable Marquita Starkey MD Unavailable Roopa Almonte MD Unavailable [phone] Griffin Joshi MD Unavailable Rina Magallon RN Unavailable [phone] Paula Reza MD Primary Care Provider [phone] Griffin Joshi MD Unavailable Roopa Almonte MD Unavailable [phone] [facility] Basilio Naik Unavailable Lydia Bernstein PA-C Unavailable Rosa Maria Love Unavailable [phone] Augustine Callaway MD Unavailable Paula Reza MD Unavailable Keerthi Miner APRN MILL REPRESENTATIVE Unavailable [phone] Herman, Shahida Cummings APRN MILL REPRESENTATIVE Unavailable Un available Porsha Michaels APRN MILL REPRESENTATIVE Unavailable [phone] Paula Reza MD Unavailable Herman, Shahida Cummings APRN MILL REPRESENTATIVE Unavailable Un available Daylin Ludwig Unavailable [phone] Laurel Velasquez MD Unavailable [phone] Daylin Ludwig Unavailable [phone] Paula Reza MD Unavailable Porsha Michaels APRN MILL REPRESENTATIVE Unavailable [phone] Laurel Velasquez MD Unavailable [phone] Herman, Shahida Cummings APRN MILL REPRESENTATIVE Unavailable Un available Marilin Montaño MILL REPRESENTATIVE Unavailable [phone] Esha Dewitt MD Unavailable [phone] Heather Mosquera MD Unavailable [phone] Paula Reza MD Unavailable Esha Dewitt MD Unavailable [phone] Valdo Escamilla PA-C Unavailable [phone] Nohelia bAarca PA-C Unavailable [phone] Heather Mosquera MD Unavailable [phone] Fawad York MD Unavailable [phone] Encounter Details Date Type Department Care Team (Late st Contact Info) Description 08/01/2016 MyC Medical Advice [address] [address] Matilde Allen CMA Social History [...] Out COVID-19 02/15/2020 02/15/2020 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/2020 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 Rule Out COVID-19 01/05/2021 01/05/2021 01/06/2021 12:57 PM CDT ESBL 01/05/2021 01/05/2021 Rule Out COVID-19 06/30/2021 06/30/2021 07/01/2021 9:34 AM CDT Rule Out COVID-19 07/25/2021 07/25/2021 07/25/2021 8:02 PM CDT Assessment Noted Time PHQ-9 Depression Total Score: 5 05/27/19 17 7:07 AM CDT documented as of this encounter Care Teams Executive Director Of Marketing Relationship Specialty Start Date End Date Shahida Sutton APRN MILL REPRESENTATIVE PCP - General Nurse Practitioner 08/17/14 08/04/21 Shahida Sutton, DUANE MILL REPRESENTATIVE PCP - Assigned PCP 07/12/14 05/07/18 Paula Reza MD [address] [place] [address] PCP - General Internal Medicine 08/05/21 Shahida Sutton, FOUR HORSE HITCH DRIVER MILL REPRESENTATIVE Assigned PCP 07/12/14 09/30/21 Carolynn Ramon, KASIE Personal Advocate & Liaison (PAL) 12/17/18 08/07/21 [place] [address] [facility] [place] [address] Assigned Musculoskeletal Provider 12/26/19 08/21/20 Brady Lion MD Assigned Heart and Vascular Provider 12/26/19 08/14/20 Nima France PA-C [address] [place] [address] Assigned Surgical Provider 05/19/20 08/21/20 Camille Chandler PA-C [address] [place] [address] Assigned Neuroscience Provider 05/19/20 09/14/20 Anabela Barakat APRN MILL REPRESENTATIVE [address] [place] [address] Assigned Heart and Vascular Provider 08/15/20 08/05/21 Nima France PA-C [address] [place] [address] Assigned Musculoskeletal Provider 08/22/20 11/13/20 [place] [address] [facility] [place] [address] Assigned Musculoskeletal Provider 11/14/20 12/04/20 Fawad York MD [address] [place], [place] [address] Assigned Musculoskeletal Provider 12/05/20 02/05/21 Roopa Almonte MD [address] [facility] 200 [place], [place] [address] Endocrinology, Diabetes, and Metabolism 01/19/21 [place] [address] [facility] [address] [place] [address] Assigned Musculoskeletal Provider 02/06/21 09/16/21 Maryse Burton PA-C [address] [place] [address] Physician Electromedical Service Engineer Dermatology 04/14/21 Marquita Starkey MD [address] [facility] [address] [place], [place] [address] Internal Medicine 05/06/21 05/06/21 Roopa Almonte MD [address] [place] [address] Hospitalist Endocrinology, Diabetes, and Metabolism 05/30/21 Griffin Joshi MD [address] [facility] [address] [place] [address] Cardiovascular Disease 07/25/21 Rina Magallon, RN Lead Clinical Transplant Coordinator 07/29/21 07/11/22 Griffin Joshi MD [address] [place] [address] Assigned Heart and Vascular Provider 08/06/21 10/07/21 Roopa Almonte MD [address] [place] [address] 200 [place] [address] Assigned Endocrinology Provider 09/10/21 [place] [address] [place] [address] Assigned Musculoskeletal Provider 09/17/21 10/14/21 Lydia Bernstein PA-C [address] [place] [address] Assigned PCP 10/01/21 10/21/21 Rosa Maria Love CHW Community Health Worker 10/06/21 07/11/22 [place] [address] [facility] [address] [place] [address] Assigned Musculoskeletal Provider 10/15/21 04/26/23 Paula Reza MD [address] [facility] [address] [place], [place] [address] Assigned PCP 10/22/21 12/23/21 Keerthi Miner FOUR HORSE HITCH DRIVER MILL REPRESENTATIVE [address] [place] [address] Assigned Heart and Vascular Provider 10/08/21 02/10/22 Shahida Sutton APRN MILL REPRESENTATIVE Assigned PCP 12/24/21 03/24/22 Porsha Michaels APRN MILL REPRESENTATIVE [address] [place] [address] Assigned Heart and Vascular Provider 02/11/22 05/12/22 Paula Reza MD [address] [facility] 200 [place] [address] Assigned PCP 03/25/22 04/07/22 Shahida Sutton FOUR HORSE HITCH DRIVER MILL REPRESENTATIVE [address] [place] [address] Assigned PCP 04/08/22 06/30/22 Daylin Ludwig, MIKI [facility] [address] [place] [address] Cardiac Rehabilitation Therapist 05/16/23 Laurel Velasquez MD [address] [place] [address] Assigned Heart and Vascular Provider 05/13/22 06/30/22 Daylin Ludwig, MIKI [facility] [address] [place] [address] Cardiac Rehabilitation Therapist 06/08/22 06/09/23 Paula Reza MD [address] [place] [address] Assigned PCP 07/01/22 07/07/22 Porsha Michaels APRN MILL REPRESENTATIVE [address] [place] [address] Assigned Heart and Vascular Provider 07/01/22 07/07/22 Laurel Velasquez MD [address] [place] [address] Assigned Heart and Vascular Provider 07/08/22 08/04/22 Shahida Sutton APRN MILL REPRESENTATIVE Assigned PCP 07/08/22 09/08/22 Marilin Montaño MILL REPRESENTATIVE [address] [place] [address] Assigned Heart and Vascular Provider 08/05/22 Esha Dewitt MD [address] [place] [address] Gastroenterology 09/06/22 Heather Mosquera MD [address] [place] [address] Internal Medicine 09/06/22 Paula Reza MD [address] [place] [address] Assigned PCP 09/09/22 01/05/23 Esha Dewitt MD [address] [place] [address] Assigned Gastroenterology Provider 09/23/22 Valdo Escamilla PA-C [address] [facility] [address] [place] [address] Assigned Neuroscience Provider 09/30/22 Nohelia Abarca PA-C [address]50 [place] [address] Physician Electromedical Service Engineer Gastroenterology 10/03/22 Heather Mosquera MD [address]45 [facility] 150 [place] [address] Assigned PCP 01/06/23 Fawad York MD [address]09 [place] [address] Assigned Musculoskeletal Provider 04/27/23 06/25/23 documented as of this encounter
--- OUTSIDE RECORDS SUMMARY | 2023-09-18 13:53 | XMS_ITS | Encounter Summary ---
Author Organization [place] Address [address] [place] [address] Care Team Providers Care Surgical Services Coordinator Name Role Phone Mingo Aldana MD Primary Car e Provider Herman, Shahida Cummings APRN STEFFEN HOUSE SUPERVISOR Primary Care Provi ford Unavailable Herman, Shahida Cummings APRN STEFFEN HOUSE SUPERVISOR Unavailable Un available Herman, Shahida Cummings APRN STEFFEN HOUSE SUPERVISOR Unavailable Un available Carolynn Ramon RN Unavailable [phone] Augustine Callaway MD Unavailable Brady Lion MD Unavailable Un available Nima France-C Unavailable [phone] Camille Chandler PA-C Unavailable [phone] Anabela Barakat APRN STEFFEN HOUSE SUPERVISOR Unavailable Nima France-C Unavailable [phone] Basilio Morillo DO Unavailable [phone] Fawad York MD Unavailable [phone] Roopa Almonte MD Unavailable [phone] Augustine Callaway MD Unavailable Maryse Burton PA-C Unavailable Marquita Starkey MD Unavailable [phone] Roopa Almonte MD Unavailable [phone] Griffin Joshi MD Unavailable Rina Magallon RN Unavailable [phone] Paula Reza MD Primary Care Provider [phone] Griffin Joshi MD Unavailable Roopa Almonte MD Unavailable [phone] [facility] island[facility] win DO Unavailable Lydia Bernstein PA-C Unavailable Rosa Maria Love Unavailable [phone] Augustine Callaway MD Unavailable Paula Reza MD Unavailable Keerthi Miner APRN STEFFEN HOUSE SUPERVISOR Unavailable Herman, Shahida Cummings APRN STEFFEN HOUSE SUPERVISOR Unavailable Un available Porsha Michaels APRN STEFFEN HOUSE SUPERVISOR Unavailable [phone] Paula Reza MD Unavailable Herman, Shahida Cummings APRN STEFFEN HOUSE SUPERVISOR Unavailable Un available Daylin Ludwig Unavailable [phone] Laurel Velasquez MD Unavailable [phone] Daylin Ludwig Unavailable [phone] Paula Reza MD Unavailable Porsha Michaels APRN STEFFEN HOUSE SUPERVISOR Unavailable [phone] Laurel Velasquez MD Unavailable [phone] Herman, Shahida Cummings APRN STEFFEN HOUSE SUPERVISOR Unavailable Un available Marilin Montaño STEFFEN HOUSE SUPERVISOR Unavailable [phone] Esha Dewitt MD Unavailable [phone] Heather Mosquera MD Unavailable Paula Reza MD Unavailable Esha Dewitt MD Unavailable [phone] AyseStanford cabrerashiv Desouza PA-C Unavailable [phone] Nohelia Abarca PA-C Unavailable [phone] Heather Mosquera MD Unavailable Fawad York MD Unavailable [phone] Reason for Visit * Reason Onset Date Comments MyChart Communication 11/06/2012 11/06/12 CT results Encounter Details Date Type Department Care Team (Late st Contact Info) Description 11/06/2012 [facility] [address], [address] [place] [address] Mingo Aldana MD [facility] [address] [place] [address] MyChart Communication (11/06/12 CT results) Social History Tobacco Use Types Packs/Day Years [...] Out COVID-19 02/15/2020 02/15/2020 02/16/2020 2:32 PM 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 Rule Out COVID-19 01/05/2021 01/05/2021 01/06/2021 12:57 PM CDT ESBL 01/05/2021 01/05/2021 Rule Out COVID-19 06/30/2021 06/30/2021 07/01/2021 9:34 AM CDT Rule Out COVID-19 07/25/2021 07/25/2021 07/25/2021 8:02 PM CDT documented as of this encounter Care Teams Surgical Services Coordinator Relationship Specialty Start Date End Date Katya Jasonyaneth Bimal Celestin MD PCP - General Family Practice 07/22/09 07/12/14 Shahida Sutton APRN STEFFEN HOUSE SUPERVISOR PCP - General Nurse Practitioner 08/17/14 08/04/21 Shahida Sutton APRN STEFFEN HOUSE SUPERVISOR PCP - Assigned PCP 07/12/14 05/07/18 Paula Reza MD [address] [place] [address] PCP - General Internal Medicine 08/05/21 Shahida Sutton APRN STEFFEN HOUSE SUPERVISOR Assigned PCP 07/12/14 09/30/21 Carolynn Ramon, KASIE Personal Advocate & Liaison (PAL) 12/17/18 08/07/21 [place] [address] [place] [address] Assigned Musculoskeletal Provider 12/26/19 08/21/20 Brady Lion MD Assigned Heart and Vascular Provider 12/26/19 08/14/20 Nima France PA-C [address] [place] [address] Assigned Surgical Provider 05/19/20 08/21/20 Camille Chandler PA-C [address] [facility] [address] [place], [place] [address] Assigned Neuroscience Provider 05/19/20 09/14/20 Anabela Barakat APRN STEFFEN HOUSE SUPERVISOR [address] [place] [address] Assigned Heart and Vascular Provider 08/15/20 08/05/21 Nima France PA-C 6545 [facility] [address] [place] [address] Assigned Musculoskeletal Provider 08/22/20 11/13/20 [place] [address] [place] [address] Assigned Musculoskeletal Provider 11/14/20 12/04/20 Fawad York MD [address] [place] [address] Assigned Musculoskeletal Provider 12/05/20 02/05/21 Roopa Almonte MD [address] [facility] [address] [place] [address] Endocrinology, Diabetes, and Metabolism 01/19/21 [place] [address] [facility] [address] [place], [place] [address] Assigned Musculoskeletal Provider 02/06/21 09/16/21 Maryse Burton PA-C [address] [place], [place] [address] Physician Human Resource Statistician Dermatology 04/14/21 Marquita Starkey MD [address] [facility] [address] [place] [address] Internal Medicine 05/06/21 05/06/21 Roopa Almonte MD [address] [facility] [address] [place] [address] Hospitalist Endocrinology, Diabetes, and Metabolism 05/30/21 Griffin Joshi MD [address] [place] [address] Cardiovascular Disease 07/25/21 Rina Magallon RN Lead Brake Lining Curer 07/29/21 07/11/22 Griffin Joshi MD [address] [place] [address] Assigned Heart and Vascular Provider 08/06/21 10/07/21 Roopa Almonte MD [address] [place], [place] [address] Assigned Endocrinology Provider 09/10/21 [place] [address] [facility] [place] [address] Assigned Musculoskeletal Provider 09/17/21 10/14/21 Lydia Bernstein PA-C [address] [place] [address] Assigned PCP 10/01/21 10/21/21 Klarissa Lovesay, W Community Health Worker 10/06/21 [place] [address] [place] [address] Assigned Musculoskeletal Provider 10/15/21 04/26/23 Paula Reza MD [address] [place] [address] Assigned PCP 10/22/21 12/23/21 Keerthi Miner APRN STEFFEN HOUSE SUPERVISOR [address] [place] [address] Assigned Heart and Vascular Provider 10/08/21 02/10/22 Shahida Sutton APRN STEFFEN HOUSE SUPERVISOR Assigned PCP 12/24/21 03/24/22 Porsha Michaels APRN STEFFEN HOUSE SUPERVISOR [address] [place] [address] Assigned Heart and Vascular Provider 02/11/22 05/12/22 Paula Reza MD [address] [place] [address] Assigned PCP 03/25/22 04/07/22 Shahida Sutton APRN STEFFEN HOUSE SUPERVISOR [address] [place] [address] Assigned PCP 04/08/22 06/30/22 Daylin Ludwig EP [facility] [address] [place] [address] Cardiac Rehabilitation Therapist 05/16/23 Laurel Velasquez MD [address] [place] [address] Assigned Heart and Vascular Provider 05/13/22 06/30/22 Daylin Ludwig EP [facility] [address] [place] [address] Cardiac Rehabilitation Therapist 06/08/22 06/09/23 Paula Reza MD [address] [facility] [address] [place], [place] [address] Assigned PCP 07/01/22 07/07/22 Porsha Michaels APRN STEFFEN HOUSE SUPERVISOR [address] [place] [address] Assigned Heart and Vascular Provider 07/01/22 07/07/22 Laurel Velasquez MD [address] [place] [address] Assigned Heart and Vascular Provider 07/08/22 08/04/22 Shahida Sutton, SEWING MACHINE OPERATOR PAPER BAGS STEFFEN HOUSE SUPERVISOR Assigned PCP 07/08/22 09/08/22 Marilin Montaño, STEFFEN HOUSE SUPERVISOR [address] [place] [address] Assigned Heart and Vascular Provider 08/05/22 Esha Dewitt MD [address] [facility] 36 [place], [place] [address] Gastroenterology 09/06/22 Heather Mosquera MD [address] [place] [address] Internal Medicine 09/06/22 Paula Reza MD [address] [place] [address] Assigned PCP 09/09/22 01/05/23 Esha Dewitt MD 420 [facility] 36 [place], [place] [address] Assigned Gastroenterology Provider 09/23/22 Valdo Escamilla PA-C [address] [facility] [address] [place], [place] [address] Assigned Neuroscience Provider 09/30/22 Nohelia Abarca PA-C [address] [facility] [place], [place] [address] Physician Human Resource Statistician Gastroenterology 10/03/22 Heather Mosquera MD [address] [place] [address] Assigned PCP 01/06/23 Fawad York MD [address] [place], [place] [address] Assigned Musculoskeletal Provider 04/27/23 06/25/23 documented as of this encounter
--- OUTSIDE RECORDS SUMMARY | 2023-09-18 13:53 | XMS_ITS | Encounter Summary ---
Author Organization [place] Address [address] [place] [address] Care Team Providers Care Watershed Engineer Name Role Phone Mingo Aldana MD Primary Car e Provider Herman, Shahida Cummings APRN HOSPICE SPIRITUAL CARE COORDINATOR Primary Care Provi ford Unavailable Herman, Shahida Cummings APRN HOSPICE SPIRITUAL CARE COORDINATOR Unavailable Un available Herman, Shahida Cummings APRN HOSPICE SPIRITUAL CARE COORDINATOR Unavailable Un available Carolynn Ramon RN Unavailable [phone] Augustine Callaway MD Unavailable Brady Lion MD Unavailable Un available Nima France-C Unavailable [phone] Camille Chandler PA-C Unavailable [phone] Anabela Barakat APRN HOSPICE SPIRITUAL CARE COORDINATOR Unavailable Nima France-C Unavailable [phone] Basilio Morillo DO Unavailable [phone] Fawad York MD Unavailable [phone] Roopa Almonte MD Unavailable [phone] Augustine Callaway MD Unavailable Maryse Burton PA-C Unavailable Marquita Starkey MD Unavailable [phone] Roopa Almonte MD Unavailable [phone] Griffin Joshi MD Unavailable Rina Magallon RN Unavailable [phone] Paula Reza MD Primary Care Provider [phone] Griffin Joshi MD Unavailable Roopa Almonte MD Unavailable [phone] [facility] win DO Unavailable Lydia Bernstein PA-C Unavailable Rosa Maria Love Unavailable [phone] Augustine Callaway MD Unavailable Paula Reza MD Unavailable Keerthi Miner APRN HOSPICE SPIRITUAL CARE COORDINATOR Unavailable Herman, Shahida Cummings APRN HOSPICE SPIRITUAL CARE COORDINATOR Unavailable Un available Porsha Michaels APRN HOSPICE SPIRITUAL CARE COORDINATOR Unavailable [phone] Paula Reza MD Unavailable Herman, Shahida Cummings APRN HOSPICE SPIRITUAL CARE COORDINATOR Unavailable Un available Daylin Ludwig Unavailable [phone] Laurel Velasquez MD Unavailable [phone] Daylin Ludwig Unavailable [phone] Paula Reza MD Unavailable Porsha Michaels APRN HOSPICE SPIRITUAL CARE COORDINATOR Unavailable [phone] Laurel Velasquez MD Unavailable [phone] Herman, Shahida Cummings APRN HOSPICE SPIRITUAL CARE COORDINATOR Unavailable Un available Marilin Montaño HOSPICE SPIRITUAL CARE COORDINATOR Unavailable [phone] Esha Dewitt MD Unavailable [phone] Heather Mosquera MD Unavailable Paula Reza MD Unavailable Esha Dewitt MD Unavailable [phone] Valdo Escamilla Deo PA-C Unavailable Nohelia Abarca PA-C Unavailable [phone] Heather Mosquera MD Unavailable Fawad York MD Unavailable [phone] Reason for Visit * Reason Onset Date Comments Refill Request 07/05/2012 Toprol XL Encounter Details Date Type Department Care Team (Late st Contact Info) Description 07/05/2012 MyC Refill M [address], [address] [place] [address] Mingo Aldana MD [facility] [address] [place] [address] Refill Request (Toprol XL) Social History Tobacco Use Types Packs/Day Years Used Date Smoking Tobacco: Former Cigarettes Q uit: 12/09/2006 Cigars Smokeless Tobacco: Never Comments:occasionally Alcohol Use Standard Drinks/Week Comments Yes 0 (1 standard drink = 0.6 oz pur e alcohol) Very Occasionally Sex and Gender Information Value Date Recorded Sex Assigned at Male 09/20/2020 8:37 AM CDT Gender Identity Male 09/20/2020 8:37 AM CDT Sexual Orientation Straight 09/20/2020 8: 37 AM CDT documented as of this encounter Miscellaneous Notes * Telephone Encounter - Kalli King - 07/05/2012 10:54 AM CDT Last Office Visit R/T Diagnosis: 05/29/2012 BP Readings from Last 3 Encounters: 05/29/12 138/84 05/01/12 140/79 04/23/12 140/76 BETA BLOCKERS Corgard, Inderal, Betapace (sotalol), Labetalol, Tenormin (atenolol), Toprol (metoprolol), Zebeta, Coreg OV AND REFILLS Q 12 MTHS IF BP <140/90 OV AND REFILLS Q 6 MTHS IF BP >140/90 DM <140/90 Vascular Disease: <130/80 If BP reviewed and plan is noted, can refill. Recheck BP and labs in 1-2 mths after dosage change If BP is still elevated and labs are abnormal, forward to provider Medication approved per standing orders. Kalli King RN * Telephone Encounter - Kalli King - 07/05/2012 10:53 AM CDTMessage from [facility]: Original authorizing provider: Mingo Aldana MD, MD Mauro Terrell would like a refill of the following medications: metoprolol (TOPROL-XL) 50 MG 24 hr tablet [Mingo Aldana MD, ] Preferred pharmacy: [facility] [place] [address] [address] Comment: I requested this through the Pharmacy, but I wanted to make sure it hadn't gotten lost, please disregard if this was already received. 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 Rule Out COVID-19 01/05/2021 01/05/2021 01/06/2021 12:57 PM CDT ESBL 01/05/2021 01/05/2021 Rule Out COVID-19 06/30/2021 06/30/2021 07/01/2021 9:34 AM CDT Rule Out COVID-19 07/25/2021 07/25/2021 07/25/2021 8:02 PM CDT documented as of this encounter Care Teams Watershed Engineer Relationship Specialty Start Date End Date Mingo Aldana MD PCP - General Family Practice 07/22/09 07/12/14 Shahida Sutton APRN HOSPICE SPIRITUAL CARE COORDINATOR PCP - General Nurse Practitioner 08/17/14 08/04/21 Shahida Sutton APRN HOSPICE SPIRITUAL CARE COORDINATOR PCP - Assigned PCP 07/12/14 05/07/18 Paula Reza MD [address] [facility] [address] [place] [address] PCP - General Internal Medicine 08/05/21 Shahida Sutton APRN HOSPICE SPIRITUAL CARE COORDINATOR Assigned PCP 07/12/14 09/30/21 Carolynn Ramon RN Personal Advocate & Liaison (PAL) 12/17/18 08/07/21 [place] [address] [place], [place] [address] Assigned Musculoskeletal Provider 12/26/19 08/21/20 Brady Lion MD Assigned Heart and Vascular Provider 12/26/19 08/14/20 Nima France PA-C [address] [place] [address] Assigned Surgical Provider 05/19/20 08/21/20 Camille hCandler PA-C [address] [place] [address] Assigned Neuroscience Provider 05/19/20 09/14/20 Anabela Barakat APRN HOSPICE SPIRITUAL CARE COORDINATOR [address] [place] [address] Assigned Heart and Vascular Provider 08/15/20 08/05/21 Nima France PA-C 6545 [facility] [address] [place] [address] Assigned Musculoskeletal Provider 08/22/20 11/13/20 [place] [address] [facility] [place], [place] [address] Assigned Musculoskeletal Provider 11/14/20 12/04/20 Fawad York MD [address] [place], [place] [address] Assigned Musculoskeletal Provider 12/05/20 02/05/21 Roopa Almonte MD [address] [facility] 200 [place] [address] Endocrinology, Diabetes, and Metabolism 01/19/21 [place] [address] [facility] 300 [place] [address] Assigned Musculoskeletal Provider 02/06/21 09/16/21 Maryse Burton PA-C [address] [place] [address] Physician Manager Telemetry Dermatology 04/14/21 Marquita Starkey MD [address] [facility] [address] [place] [address] Internal Medicine 05/06/21 05/06/21 Roopa Almonte MD [address] [place] [address] Hospitalist Endocrinology, Diabetes, and Metabolism 05/30/21 Griffin Joshi MD [address] [facility] [address] [place] [address] Cardiovascular Disease 07/25/21 Rina Magallon, RN Lead Blast Furnace Operator 07/29/21 07/11/22 Griffin Joshi MD [address] [facility] [address] [place] [address] Assigned Heart and Vascular Provider 08/06/21 10/07/21 Roopa Almonte MD [address] [address] [place], [place] [address] Assigned Endocrinology Provider 09/10/21 [place] [address] [facility] [place] [address] Assigned Musculoskeletal Provider 09/17/21 10/14/21 Lydia Bernstein PA-C [address] [facility] [address] [place] [address] Assigned PCP 10/01/21 10/21/21 Rosa Maria Love CHW Community Health Worker 10/06/21 [place] [address] [facility] 300 [place] [address] Assigned Musculoskeletal Provider 10/15/21 04/26/23 Paula Reza MD [address] [place] [address] Assigned PCP 10/22/21 12/23/21 Keerthi Miner APRN HOSPICE SPIRITUAL CARE COORDINATOR [address] [place] [address] Assigned Heart and Vascular Provider 10/08/21 02/10/22 Shahida Sutton APRN HOSPICE SPIRITUAL CARE COORDINATOR Assigned PCP 12/24/21 03/24/22 Porsha Michaels APRN HOSPICE SPIRITUAL CARE COORDINATOR [address] [place] [address] Assigned Heart and Vascular Provider 02/11/22 05/12/22 Paula Reza MD [address] [place] [address] Assigned PCP 03/25/22 04/07/22 Shahida Sutton APRN HOSPICE SPIRITUAL CARE COORDINATOR [address] [place] [address] Assigned PCP 04/08/22 06/30/22 Dyalin Ludwig EP [facility] [address] [place] [address] Cardiac Rehabilitation Therapist 05/16/23 Laurel Velasquez MD [address] [address] Assigned Heart and Vascular Provider 05/13/22 06/30/22 Daylin Ludwig EP [facility] [address] [place] [address] Cardiac Rehabilitation Therapist 06/08/22 06/09/23 Paula Reza MD [address] [place], [place] [address] Assigned PCP 07/01/22 07/07/22 Porsha Michaels APRN HOSPICE SPIRITUAL CARE COORDINATOR [address] [place] [address] Assigned Heart and Vascular Provider 07/01/22 07/07/22 Laurel Velasquez MD [address] [place] [address] Assigned Heart and Vascular Provider 07/08/22 08/04/22 Shahida Sutton, KEELER POLYGRAPH OPERATOR HOSPICE SPIRITUAL CARE COORDINATOR Assigned PCP 07/08/22 09/08/22 Marilin Montaño, HOSPICE SPIRITUAL CARE COORDINATOR [address] [place] [address] Assigned Heart and Vascular Provider 08/05/22 Esha Dewitt MD [address] [place] [address] 36 [place], [place] [address] Gastroenterology 09/06/22 Heather Mosquera MD [address] [place] [address] Internal Medicine 09/06/22 Paula Reza MD [address] [place] [address] Assigned PCP 09/09/22 01/05/23 Esha Dewitt MD 420 [facility] 36 [place], [place] [address] Assigned Gastroenterology Provider 09/23/22 Valdo Escamilla PA-C 6363 [facility] [address] [place], [place] [address] Assigned Neuroscience Provider 09/30/22 Nohelia Abarca PA-C [address] [place], [place] [address] Physician Manager Telemetry Gastroenterology 10/03/22 Heather Mosquera MD 6545 [facility] [address] [place], [place] [address] Assigned PCP 01/06/23 Fawad York MD [address] [place], [place] [address] Assigned Musculoskeletal Provider 04/27/23 06/25/23 documented as of this encounter
--- OUTSIDE RECORDS SUMMARY | 2023-09-18 13:53 | XMS_ITS | Encounter Summary ---
Author Organization [facility] Address [address] [place] [address] Care Team Providers Care Ecological Modeler Name Role Phone Mingo Aldana MD Primary Car e Provider Herman, Shahida Cummings APRN DIRECTOR OF PROMOTIONS Primary Care Provi ford Unavailable Herman, Shahida Cummings APRN DIRECTOR OF PROMOTIONS Unavailable Un available Herman, Shahida Cummings APRN DIRECTOR OF PROMOTIONS Unavailable Un available Carolynn Ramon RN Unavailable [phone] Augustine Callaway MD Unavailable Brady Lion MD Unavailable Un available Nima France-C Unavailable +[phone] Camille Chandler PA-C Unavailable +[phone] Anabela Barakat APRN DIRECTOR OF PROMOTIONS Unavailable Nima France-C Unavailable [phone] Basilio Morillo DO Unavailable [phone] Fawad York MD Unavailable [phone] Roopa Almonte MD Unavailable [phone] Augustine Callaway MD Unavailable Maryse Burton PA-C Unavailable Marquita Starkey MD Unavailable +[phone] Roopa Almonte MD Unavailable [phone] Griffin Joshi MD Unavailable Rina Magallon RN Unavailable [phone] Puala Reza MD Primary Care Provider [phone] Griffin Joshi MD Unavailable Roopa Almonte MD Unavailable [phone] [facility] island[facility] win DO Unavailable Lydia Bernstein PA-C Unavailable Rosa Maria Love Unavailable [phone] Augustine Callaway MD Unavailable Paula Reza MD Unavailable Keerthi Miner APRN DIRECTOR OF PROMOTIONS Unavailable Herman, Shahida Cummings APRN DIRECTOR OF PROMOTIONS Unavailable Un available Porsha Michaels APRN DIRECTOR OF PROMOTIONS Unavailable [phone] Paula Reza MD Unavailable Herman, Shahida Cummings APRN DIRECTOR OF PROMOTIONS Unavailable Un available Daylin Ludwig Unavailable [phone] Laurel Velasquez MD Unavailable [phone] Daylin Ludwig Unavailable [phone] Paula Reza MD Unavailable Porsha Michaels APRN DIRECTOR OF PROMOTIONS Unavailable +[phone] Laurel Velasquez MD Unavailable [phone] Herman, Shahida Cummings APRN DIRECTOR OF PROMOTIONS Unavailable Un available Marilin Montaño DIRECTOR OF PROMOTIONS Unavailable [phone] Esha Dewitt MD Unavailable [phone] Heather Mosquera MD Unavailable [phone] Paula Reza MD Unavailable Esha Dewitt MD Unavailable [phone] Valdo Escamilla Deo PA-C Unavailable [phone] Nohelia Abarca PA-C Unavailable [phone] Heather Mosquera MD Unavailable [phone] Fawad York MD Unavailable [phone] Reason for Visit * Reason Onset Date Comments Patient Inquiry 07/16/2012 Encounter Details Date Type Department Care Team (Late st Contact Info) Description 07/16/2012 [facility] [address] [address] Mingo Aldana MD [facility] [address] [place] [address] Patient Inquiry Social History Tobacco Use Types Packs/Day Years [...] Miscellaneous Notes * Telephone Encounter - Liliana Nolasco - 07/16/2012 12:54 PM CDT See patient's My Chart message. 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 Rule Out COVID-19 01/05/2021 01/05/2021 01/06/2021 12:57 PM CDT ESBL 01/05/2021 01/05/2021 Rule Out COVID-19 06/30/2021 06/30/2021 07/01/2021 9:34 AM CDT Rule Out COVID-19 07/25/2021 07/25/2021 07/25/2021 8:02 PM CDT documented as of this encounter Care Teams Ecological Modeler Relationship Specialty Start Date End Date Mingo Aldana MD PCP - General Family Practice 07/22/09 07/12/14 Shahida Sutton APRN DIRECTOR OF PROMOTIONS PCP - General Nurse Practitioner 08/17/14 08/04/21 Shahida Sutton APRN DIRECTOR OF PROMOTIONS PCP - Assigned PCP 07/12/14 05/07/18 Paula Reza MD [address] [facility] [address] [place] [address] PCP - General Internal Medicine 08/05/21 Shahida Sutton APRN DIRECTOR OF PROMOTIONS Assigned PCP 07/12/14 09/30/21 Carolynn Ramon RN Personal Advocate & Liaison (PAL) 12/17/18 08/07/21 [place] [address] [place], [place] [address] Assigned Musculoskeletal Provider 12/26/19 08/21/20 Brady Lion MD Assigned Heart and Vascular Provider 12/26/19 08/14/20 Nima France PA-C [address] [facility] [address] [place] [address] Assigned Surgical Provider 05/19/20 08/21/20 Camille Chandler PA-C [address] [facility] [address] [place] [address] Assigned Neuroscience Provider 05/19/20 09/14/20 Anabela Barakat APRN DIRECTOR OF PROMOTIONS [address] [place] [address] Assigned Heart and Vascular Provider 08/15/20 08/05/21 Nima France PA-C [address] [facility] [address] [place] [address] Assigned Musculoskeletal Provider 08/22/20 11/13/20 [place] [address] [place] [address] Assigned Musculoskeletal Provider 11/14/20 12/04/20 Fawad York MD [address] [place], [place] [address] Assigned Musculoskeletal Provider 12/05/20 02/05/21 Roopa Almonte MD [address] [place] [address] Endocrinology, Diabetes, and Metabolism 01/19/21 [place] [address] [facility] [address] [place] [address] Assigned Musculoskeletal Provider 02/06/21 09/16/21 Maryse Burton PA-C [address] [place] [address] Physician Enginehouse Brakeman Dermatology 04/14/21 Marquita Starkey MD [address] [facility] [address] [place], [place] [address] Internal Medicine 05/06/21 05/06/21 Roopa Almonte MD [address] [facility] [address] [place], [place] [address] Hospitalist Endocrinology, Diabetes, and Metabolism 05/30/21 Griffin Joshi MD [address] [facility] [address] [place] [address] Cardiovascular Disease 07/25/21 Rina Magallon, RN Lead Physiotherapy Aide 07/29/21 07/11/22 Griffin Joshi MD [address] [facility] [address] [place] [address] Assigned Heart and Vascular Provider 08/06/21 10/07/21 Roopa Almonte MD [address] [place] [address] Assigned Endocrinology Provider 09/10/21 [place] [address] [facility] [place] [address] Assigned Musculoskeletal Provider 09/17/21 10/14/21 Lydia Bernstein PA-C [address] [place] [address] Assigned PCP 10/01/21 10/21/21 Kate Rosa Maria, CHW Community Health Worker 10/06/21 [place] [address] [place] [address] Assigned Musculoskeletal Provider 10/15/21 04/26/23 Paula Reza MD [address] [place] [address] Assigned PCP 10/22/21 12/23/21 Keerthi Miner APRN DIRECTOR OF PROMOTIONS [address] [place] [address] Assigned Heart and Vascular Provider 10/08/21 02/10/22 Shahida Sutton APRN DIRECTOR OF PROMOTIONS Assigned PCP 12/24/21 03/24/22 Porsha Michaels APRN DIRECTOR OF PROMOTIONS [address] [place] [address] Assigned Heart and Vascular Provider 02/11/22 05/12/22 Paula Reza MD [address] [place] [address] Assigned PCP 03/25/22 04/07/22 Shahida Sutton APRN DIRECTOR OF PROMOTIONS [address] [place] [address] Assigned PCP 04/08/22 06/30/22 Daylin Ludwig, EP [facility] [address] [place] [address] Cardiac Rehabilitation Therapist 05/16/23 Laurel Velasquez MD [address] [place] [address] Assigned Heart and Vascular Provider 05/13/22 06/30/22 Daylin Ludwig, EP [facility] [address] [place] [address] Cardiac Rehabilitation Therapist 06/08/22 06/09/23 Paula Reza MD [address] [address] Assigned PCP 07/01/22 07/07/22 Porsha Michaels APRN DIRECTOR OF PROMOTIONS [address] [place] [address] Assigned Heart and Vascular Provider 07/01/22 07/07/22 Laurel Velasquez MD [address] [place] [address] Assigned Heart and Vascular Provider 07/08/22 08/04/22 Shahida Sutton APRN DIRECTOR OF PROMOTIONS Assigned PCP 07/08/22 09/08/22 Marilin Montaño, DIRECTOR OF PROMOTIONS [address] [place] [address] Assigned Heart and Vascular Provider 08/05/22 Esha Dewitt MD [address] [facility] 36 [place] [address] Gastroenterology 09/06/22 Heather Mosquera MD [address] [place] [address] Internal Medicine 09/06/22 Paula Reza MD [address] [place] [address] Assigned PCP 09/09/22 01/05/23 Esha Dewitt MD [address] [address] Assigned Gastroenterology Provider 09/23/22 Valdo Escamilla PA-C [address] [facility] [address] [place] [address] Assigned Neuroscience Provider 09/30/22 Nohelia Abarca PA-C [address] [place] [address] Physician Enginehouse Brakeman Gastroenterology 10/03/22 Heather Mosquera MD [address] [place] [address] Assigned PCP 01/06/23 Fawad York MD [address] [place], [place] [address] Assigned Musculoskeletal Provider 04/27/23 06/25/23 documented as of this encounter
--- OUTSIDE RECORDS SUMMARY | 2023-09-18 13:53 | XMS_ITS | Encounter Summary ---
Author Organization [facility] Address [address] [place] [address] Care Team Providers Care Gyn Physician Name Role Phone Mingo Aldana MD Primary Car e Provider Herman, Shahida Cummings APRN GALLERY ASSISTANT Primary Care Provi ford Unavailable Herman, Shahida Cummings APRN GALLERY ASSISTANT Unavailable Un available Herman, Shahida Cummings APRN GALLERY ASSISTANT Unavailable Un available Carolynn Ramon RN Unavailable [phone] Augustine Callaway MD Unavailable Brady Lion MD Unavailable Un available Nima France-C Unavailable [phone] Camille Chandler PA-C Unavailable [phone] Anabela Barakat APRN GALLERY ASSISTANT Unavailable Nima France-C Unavailable [phone] Basilio Morillo DO Unavailable [phone] Fawad York MD Unavailable [phone] Roopa Almonte MD Unavailable [phone] Augustine Callaway MD Unavailable Maryse Burton PA-C Unavailable Marquita Starkey MD Unavailable [phone] Roopa Almonte MD Unavailable [phone] Griffin Joshi MD Unavailable Rina Magallon RN Unavailable [phone] Paula Reza MD Primary Care Provider [phone] Griffin Joshi MD Unavailable Roopa Almonte MD Unavailable [phone] [facility] hospitalBasilio win DO Unavailable Lydia Bernstein PA-C Unavailable Rosa Maria Love Unavailable [phone] Augustine Callaway MD Unavailable Paula Reza MD Unavailable Keerthi Miner APRN GALLERY ASSISTANT Unavailable Herman, Shahida Cummings APRN GALLERY ASSISTANT Unavailable Un available Porsha Michaels APRN GALLERY ASSISTANT Unavailable [phone] Paula Reza MD Unavailable Herman, Shahida Cummings APRN GALLERY ASSISTANT Unavailable Un available Daylin Ludwig Unavailable [phone] Laurel Velasquez MD Unavailable [phone] Daylin Ludwig Unavailable [phone] Paula Reza MD Unavailable Porsha Michaels APRN GALLERY ASSISTANT Unavailable [phone] Laurel Velasquez MD Unavailable [phone] Herman, Shahida Cummings APRN GALLERY ASSISTANT Unavailable Un available Marilin Montaño GALLERY ASSISTANT Unavailable [phone] Esha Dewitt MD Unavailable [phone] Heather Mosquera MD Unavailable Paula Reza MD Unavailable Esha Dewitt MD Unavailable [phone] Valdo Escamilla PA-C Unavailable Nohelia Abarca PA-C Unavailable [phone] Heather Mosquera MD Unavailable [phone] Fawad York MD Unavailable [phone] Encounter Details Date Type Department Care Team (Late st Contact Info) Description 03/27/2013 [facility] [address] [address] Brenda Nicolas MA Social History Tobacco Use Types Packs/Day [...] Out COVID-19 02/15/2020 02/15/2020 02/16/2020 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 [address] [place] [address] PCP - General Internal Medicine 08/05/21 Shahida Sutton APRN GALLERY ASSISTANT Assigned PCP 07/12/14 09/30/21 Carolynn Ramon RN Personal Advocate & Liaison (PAL) 12/17/18 08/07/21 [place] [address] [address] [place], [place] [address] Assigned Musculoskeletal Provider 12/26/19 08/21/20 Brady Lion MD Assigned Heart and Vascular Provider 12/26/19 08/14/20 Nima France PA-C [address] [place] [address] Assigned Surgical Provider 05/19/20 08/21/20 Camille Chandler PA-C [address] [place] [address] Assigned Neuroscience Provider 05/19/20 09/14/20 Anabela Barakat APRN GALLERY ASSISTANT [address] [place] [address] Assigned Heart and Vascular Provider 08/15/20 08/05/21 Nima France PA-C [address] [facility] 450 [place] [address] Assigned Musculoskeletal Provider 08/22/20 11/13/20 [place] [address] [facility] [place], [place] [address] Assigned Musculoskeletal Provider 11/14/20 12/04/20 Fawad York MD [address] [place], [place] [address] Assigned Musculoskeletal Provider 12/05/20 02/05/21 Roopa Almonte MD [address] [facility] 200 [place] [address] Endocrinology, Diabetes, and Metabolism 01/19/21 [place] [address] [facility] [address] [place] [address] Assigned Musculoskeletal Provider 02/06/21 09/16/21 Maryse Burton PA-C [address] [place] [address] Physician Laboratory Animal Care Veterinarian Dermatology 04/14/21 Marquita Starkey MD [address] [facility] 200 [place] [address] Internal Medicine 05/06/21 05/06/21 Roopa Almonte MD [address] [place] [address] Hospitalist Endocrinology, Diabetes, and Metabolism 05/30/21 Griffin Joshi MD [address] [facility] [address] [place] [address] Cardiovascular Disease 07/25/21 Rina Magallon, RN Lead Elephant Tamer 07/29/21 07/11/22 Griffin Joshi MD [address] [place] [address] Assigned Heart and Vascular Provider 08/06/21 10/07/21 Roopa Almonte MD [address] [facility] [address] [place] [address] Assigned Endocrinology Provider 09/10/21 [place] [address] [facility] [place] [address] Assigned Musculoskeletal Provider 09/17/21 10/14/21 Lydia Bernstein PA-C [address] [facility] [address] [place] [address] Assigned PCP 10/01/21 10/21/21 Rosa Maria Love CHW Community Health Worker 10/06/21 [place] [address] [place] [address] Assigned Musculoskeletal Provider 10/15/21 04/26/23 Paula Reza MD [address] [place] [address] Assigned PCP 10/22/21 12/23/21 Keerthi Miner APRN GALLERY ASSISTANT [address] [place] [address] Assigned Heart and Vascular Provider 10/08/21 02/10/22 Shahida Sutton APRN GALLERY ASSISTANT Assigned PCP 12/24/21 03/24/22 Porsha Michaels APRN GALLERY ASSISTANT [address] [place] [address] Assigned Heart and Vascular Provider 02/11/22 05/12/22 Paula Reza MD [address] [place] [address] Assigned PCP 03/25/22 04/07/22 Shahida Sutton APRN GALLERY ASSISTANT [address] [place] [address] Assigned PCP 04/08/22 06/30/22 Daylin Ludwig, [facility] [address] [place] [address] Cardiac Rehabilitation Therapist 05/16/23 Laurel Velasquez MD [address] [place] [address] Assigned Heart and Vascular Provider 05/13/22 06/30/22 Daylin Ludwig, [facility] [address] [place], [place] [address] Cardiac Rehabilitation Therapist 06/08/22 06/09/23 Paula Reza MD [address] [place], [place] [address] Assigned PCP 07/01/22 07/07/22 Porsha Michaels APRN GALLERY ASSISTANT [address] [place] [address] Assigned Heart and Vascular Provider 07/01/22 07/07/22 Laurel Velasquez MD [address] [place] [address] Assigned Heart and Vascular Provider 07/08/22 08/04/22 Shahida Sutton, DUANE GALLERY ASSISTANT Assigned PCP 07/08/22 09/08/22 Marilin Montaño, GALLERY ASSISTANT [address] [place] [address] Assigned Heart and Vascular Provider 08/05/22 Esha Dewitt MD [address] [place] [address] 36 [place], [place] [address] Gastroenterology 09/06/22 Heather Mosquera MD [address] [place] [address] Internal Medicine 09/06/22 Paula Rzea MD [address] [place] [address] Assigned PCP 09/09/22 01/05/23 Esha Dewitt MD [address] [facility] 36 [place], [place] [address] Assigned Gastroenterology Provider 09/23/22 Valdo Escamilla PA-C [address] [facility] [address] [place] [address] Assigned Neuroscience Provider 09/30/22 Nohelia Abarca PA-C [address] [place] [address] Physician Laboratory Animal Care Veterinarian Gastroenterology 10/03/22 Heather Mosquera MD [address] [facility] [address] [facility] 150 [place] [address] Assigned PCP 01/06/23 Fawad York MD [address] [place], [place] [address] Assigned Musculoskeletal Provider 04/27/23 06/25/23 documented as of this encounter
--- OUTSIDE RECORDS SUMMARY | 2023-09-18 13:53 | XMS_ITS | Encounter Summary ---
Author Organization [facility] Address [address] [place] [address] Care Team Providers Care Medical Registrar Name Role Phone HermanShahida huerta APRN SQL SSIS DEVELOPER Primary Care Provi ford Unavailable Herman, Shahida Cummings APRN SQL SSIS DEVELOPER Unavailable Un available Herman, Shahida Cummings APRN SQL SSIS DEVELOPER Unavailable Un available Carolynn Ramon RN Unavailable [phone] Augustine Callaway MD Unavailable Brady Lion MD Unavailable Un available Nima France-C Unavailable [phone] Camille Chandler PA-C Unavailable [phone] Anabela Barakat APRN SQL SSIS DEVELOPER Unavailable Nima France PA-C Unavailable Basilio Morillo DO Unavailable [phone] Fawad York MD Unavailable [phone] Roopa Almonte MD Unavailable [phone] Augustine Callaway MD Unavailable Maryse Burton PA-C Unavailable [phone] Marquita Starkey MD Unavailable [phone] Roopa Almonte MD Unavailable [phone] Griffin Joshi MD Unavailable Rina Magallon RN Unavailable [phone] Paula Reza MD Primary Care Provider [phone] Griffin Joshi MD Unavailable Roopa Almonte MD Unavailable [phone] [facility] Basilio Naik Unavailable Lydia Bernstein PA-C Unavailable Rosa Maria Love Unavailable [phone] Augustine Callaway MD Unavailable Paula Reza MD Unavailable Keerthi Miner APRN SQL SSIS DEVELOPER Unavailable [phone] Herman, Shahida Cummings APRN SQL SSIS DEVELOPER Unavailable Un available Porsha Michaels APRN SQL SSIS DEVELOPER Unavailable [phone] Paula Reza MD Unavailable Herman, Shahida Cummings APRN SQL SSIS DEVELOPER Unavailable Un available Daylin Ludwig Unavailable [phone] Laurel Velasquez MD Unavailable [phone] Daylin Ludwig Unavailable [phone] Paula Reza MD Unavailable Porsha Michaels APRN SQL SSIS DEVELOPER Unavailable [phone] Laurel Velasquez MD Unavailable [phone] Herman, Shahida Cummings APRN SQL SSIS DEVELOPER Unavailable Un available Marilin Montaño SQL SSIS DEVELOPER Unavailable [phone] Esha Dewitt MD Unavailable [phone] Heather Mosquera MD Unavailable [phone] Paula Reza MD Unavailable Esha Dewitt MD Unavailable [phone] Valdo Escamilla PA-C Unavailable Nohelia Abarca PA-C Unavailable [phone] Heather Mosquera MD Unavailable [phone] Fawad York MD Unavailable [phone] Encounter Details Date Type Department Care Team (Late st Contact Info) Description 10/30/2014 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 Rule Out COVID-19 01/05/2021 01/05/2021 01/06/2021 12:57 PM CDT ESBL 01/05/2021 01/05/2021 Rule Out COVID-19 06/30/2021 06/30/2021 07/01/2021 9:34 AM CDT Rule Out COVID-19 07/25/2021 07/25/2021 07/25/2021 8:02 PM CDT documented as of this encounter Care Teams Medical Registrar Relationship Specialty Start Date End Date Shahida Sutton APRN SQL SSIS DEVELOPER PCP - General Nurse Practitioner 08/17/14 08/04/21 Shahida Sutton APRN SQL SSIS DEVELOPER PCP - Assigned PCP 07/12/14 05/07/18 Paula Reza MD [address] [place] [address] PCP - General Internal Medicine 08/05/21 Shahida Sutton APRN SQL SSIS DEVELOPER Assigned PCP 07/12/14 09/30/21 Carolynn Ramon, KASIE Personal Advocate & Liaison (PAL) 12/17/18 08/07/21 [place] [address] [place] [address] Assigned Musculoskeletal Provider 12/26/19 08/21/20 Brady Lion MD Assigned Heart and Vascular Provider 12/26/19 08/14/20 Nima France PA-C [address] [facility] 450 [place] [address] Assigned Surgical Provider 05/19/20 08/21/20 Camille Chandler PA-C [address] [facility] [address] [place] [address] Assigned Neuroscience Provider 05/19/20 09/14/20 Anabela Barakat APRN SQL SSIS DEVELOPER [address] [place] [address] Assigned Heart and Vascular Provider 08/15/20 08/05/21 Nima France PA-C [address] [place] [address] Assigned Musculoskeletal Provider 08/22/20 11/13/20 [place] [address] [facility] [place] [address] Assigned Musculoskeletal Provider 11/14/20 12/04/20 Fawad York MD [address] [place], [place] [address] Assigned Musculoskeletal Provider 12/05/20 02/05/21 Roopa Almonte MD [address] [facility] [address] [place] [address] Endocrinology, Diabetes, and Metabolism 01/19/21 [place] [address] [facility] [address] [place] [address] Assigned Musculoskeletal Provider 02/06/21 09/16/21 Maryse Burton PA-C [address] [place] [address] Physician Cement Finisher Dermatology 04/14/21 Marquita Starkey MD [address] [place] [address] Internal Medicine 05/06/21 05/06/21 Roopa Almonte MD [address] [place] [address] Hospitalist Endocrinology, Diabetes, and Metabolism 05/30/21 Griffin Joshi MD [address] [facility] [address] [place] [address] Cardiovascular Disease 07/25/21 Rina Magallon, RN Lead Winding Operator 07/29/21 07/11/22 Griffin Joshi MD [address] [facility] [address] [place] [address] Assigned Heart and Vascular Provider 08/06/21 10/07/21 Roopa Almonte MD [address] [address] [place], [place] [address] Assigned Endocrinology Provider 09/10/21 [place] [address] [facility] [place] [address] Assigned Musculoskeletal Provider 09/17/21 10/14/21 Lydia Bernstein PA-C [address] [facility] [address] [place] [address] Assigned PCP 10/01/21 10/21/21 Rosa Maria Love CHW Community Health Worker 10/06/21 07/11/22 [place] [address] [address] [facility] 300 [place] [address] Assigned Musculoskeletal Provider 10/15/21 04/26/23 Paula Reza MD [address] [facility] [address] [place] [address] Assigned PCP 10/22/21 12/23/21 Keerthi Miner JEWELRY RACKER SQL SSIS DEVELOPER [address] [place] [address] Assigned Heart and Vascular Provider 10/08/21 02/10/22 Shahida Sutton APRN SQL SSIS DEVELOPER Assigned PCP 12/24/21 03/24/22 Porsha Michaels APRN SQL SSIS DEVELOPER [address] [place] [address] Assigned Heart and Vascular Provider 02/11/22 05/12/22 Paula Reza MD [address] [facility] 200 [place] [address] Assigned PCP 03/25/22 04/07/22 Shahida Sutton APRN SQL SSIS DEVELOPER [address] [place] [address] Assigned PCP 04/08/22 06/30/22 Daylin Ludwig EP [facility] [address] [place] [address] Cardiac Rehabilitation Therapist 05/16/23 Laurel Velasquez MD [address] [place] [address] Assigned Heart and Vascular Provider 05/13/22 06/30/22 Daylin Ludwig EP [facility] [address] [place] [address] Cardiac Rehabilitation Therapist 06/08/22 06/09/23 Paula Reza MD [address] [place] [address] Assigned PCP 07/01/22 07/07/22 Porsha Michaels APRN SQL SSIS DEVELOPER [address] [place] [address] Assigned Heart and Vascular Provider 07/01/22 07/07/22 Laurel Velasquez MD [address] [place] [address] Assigned Heart and Vascular Provider 07/08/22 08/04/22 Shahida Sutton APRN SQL SSIS DEVELOPER Assigned PCP 07/08/22 09/08/22 Marilin Montaño SQL SSIS DEVELOPER [address] [place] [address] Assigned Heart and Vascular Provider 08/05/22 Esha Dewitt MD [address] [place] [address] Gastroenterology 09/06/22 Heather Mosquera MD [address] [place] [address] Internal Medicine 09/06/22 Paula Reza MD [address] [place], [place] [address] Assigned PCP 09/09/22 01/05/23 Esha Dewitt MD [address] [place] [address] 8939[address] Assigned Gastroenterology Provider 09/23/22 Valdo Escamilla PA-C [address] [facility] [address] [place], [place] [address] Assigned Neuroscience Provider 09/30/22 Nohelia Abarca PA-C [address] [place], [place] [address] Physician Cement Finisher Gastroenterology 10/03/22 Heather Mosquera MD [address] [facility] 150 [place], [place] [address] Assigned PCP 01/06/23 Fawad York MD [address] [place], [place] [address] Assigned Musculoskeletal Provider 04/27/23 06/25/23 documented as of this encounter
--- OUTSIDE RECORDS SUMMARY | 2023-09-18 13:53 | XMS_ITS | Encounter Summary ---
Author Organization [facility] Address [address] [place] [address] Care Team Providers Care Inorganic Chemistry Teacher Name Role Phone Mingo Aldana MD Primary Car e Provider Herman, Shahida Cummings APRN SOLE POLISHER Primary Care Provi ford Unavailable Herman, Shahida Cummings APRN SOLE POLISHER Unavailable Un available Herman, Shahida Cummings APRN SOLE POLISHER Unavailable Un available Carolynn Ramon RN Unavailable [phone] Augustine Callaway MD Unavailable Brady Lion MD Unavailable Un available Nima France-C Unavailable [phone] Camille Chandler PA-C Unavailable [phone] Anabela Barakat APRN SOLE POLISHER Unavailable Nima France-C Unavailable [phone] Basilio Morillo DO Unavailable [phone] Fawad York MD Unavailable [phone] Roopa Almonte MD Unavailable [phone] Augustine Callaway MD Unavailable Maryse Burton PA-C Unavailable Marquita Starkey MD Unavailable [phone] Roopa Almonte MD Unavailable [phone] Griffin Joshi MD Unavailable Rina Magallon RN Unavailable [phone] Paula Reza MD Primary Care Provider [phone] Griffin Joshi MD Unavailable Roopa Almonte MD Unavailable [phone] [facility] win DO Unavailable Lydia Bernstein PA-C Unavailable Rosa Maria Love Unavailable [phone] Augustine Callaway MD Unavailable Paula Reza MD Unavailable Keerthi Miner APRN SOLE POLISHER Unavailable Herman, Shahida Cummings APRN SOLE POLISHER Unavailable Un available Porsha Michaels APRN SOLE POLISHER Unavailable [phone] Paula Reza MD Unavailable Herman, Shahida Cummings APRN SOLE POLISHER Unavailable Un available Daylin Ludwig Unavailable [phone] Laurel Velasquez MD Unavailable [phone] Daylin Ludwig Unavailable [phone] Paula Reza MD Unavailable Porsha Michaels APRN SOLE POLISHER Unavailable [phone] Laurel Velasquez MD Unavailable [phone] Herman, Shahida Cummings APRN SOLE POLISHER Unavailable Un available Marilin Montaño SOLE POLISHER Unavailable [phone] Esha Dewitt MD Unavailable [phone] Heather Mosquera MD Unavailable [phone] Paula Reza MD Unavailable Esha Dewitt MD Unavailable [phone] Valdo Escamilla PA-C Unavailable Nohelia Abarca PA-C Unavailable [phone] Heather Mosquera MD Unavailable Fawad York MD Unavailable [phone] Encounter Details Date Type Department Care Team (Late st Contact Info) Description 12/05/[address] [id number] [place] Social History Tobacco Use Types Packs/Day Years [...] Out COVID-19 02/15/2020 02/15/2020 02/16/2020 2:32 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 Rule Out COVID-19 01/05/2021 01/05/2021 01/06/2021 12:57 PM CDT ESBL 01/05/2021 01/05/2021 Rule Out COVID-19 06/30/2021 06/30/2021 07/01/2021 9:34 AM CDT Rule Out COVID-19 07/25/2021 07/25/2021 07/25/2021 8:02 PM CDT documented as of this encounter Care Teams Inorganic Chemistry Teacher Relationship Specialty Start Date End Date Mingo Aldana MD PCP - General Family Practice 07/22/09 07/12/14 Shahida Sutton APRN SOLE POLISHER PCP - General Nurse Practitioner 08/17/14 08/04/21 Shahida Sutton APRN SOLE POLISHER PCP - Assigned PCP 07/12/14 05/07/18 Paula Reza MD [address] [facility] 200 [place] [address] PCP - General Internal Medicine 08/05/21 Shahida Sutton APRN SOLE POLISHER Assigned PCP 07/12/14 09/30/21 Carolynn Ramon RN Personal Advocate & Liaison (PAL) 12/17/18 08/07/21 [place] [address] [address] [place], [place] [address] Assigned Musculoskeletal Provider 12/26/19 08/21/20 Brady Lion MD Assigned Heart and Vascular Provider 12/26/19 08/14/20 Nima France PA-C [address] [place] [address] Assigned Surgical Provider 05/19/20 08/21/20 Camille Chandler PA-C [address] [place] [address] Assigned Neuroscience Provider 05/19/20 09/14/20 Anabela Barakat APRN SOLE POLISHER 1700 [place] [address] Assigned Heart and Vascular Provider 08/15/20 08/05/21 Nima France PA-C [address] [facility] 450 [place] [address] Assigned Musculoskeletal Provider 08/22/20 11/13/20 [place] [address] [facility] [place], [place] [address] Assigned Musculoskeletal Provider 11/14/20 12/04/20 Fawad York MD [address] [place], [place] [address] Assigned Musculoskeletal Provider 12/05/20 02/05/21 Roopa Almonte MD [address] [facility] 200 [place] [address] Endocrinology, Diabetes, and Metabolism 01/19/21 [place] [address] [facility] 300 [place] [address] Assigned Musculoskeletal Provider 02/06/21 09/16/21 Maryse Burton PA-C 5200 [place] [address] Physician Optical Instrument Repairer Dermatology 04/14/21 Marquiat Starkey MD [address] [facility] 200 [place] [address] Internal Medicine 05/06/21 05/06/21 Roopa Almonte MD [address] [place] [address] Hospitalist Endocrinology, Diabetes, and Metabolism 05/30/21 Griffin Joshi MD [address] [place] [address] Cardiovascular Disease 07/25/21 Rina Magallon, RN Lead Associate Professor Of Biblical Studies 07/29/21 07/11/22 Griffin Joshi MD [address] [place] [address] Assigned Heart and Vascular Provider 08/06/21 10/07/21 Roopa Almonte MD [address] [facility] 200 [place] [address] Assigned Endocrinology Provider 09/10/21 [place] [address] [facility] [place] [address] Assigned Musculoskeletal Provider 09/17/21 10/14/21 Lydia Bernstein PA-C [address] [facility] 150 [place] [address] Assigned PCP 10/01/21 10/21/21 Rosa Maria Love CHW Community Health Worker 10/06/21 [place] [address] [address] [place] [address] Assigned Musculoskeletal Provider 10/15/21 04/26/23 Paula Reza MD [address] [place] [address] Assigned PCP 10/22/21 12/23/21 Keerthi Miner APRN SOLE POLISHER [address] [place] [address] Assigned Heart and Vascular Provider 10/08/21 02/10/22 Shahida Sutton APRN SOLE POLISHER Assigned PCP 12/24/21 03/24/22 Porsha Michaels APRN SOLE POLISHER [address] [place] [address] Assigned Heart and Vascular Provider 02/11/22 05/12/22 Paula Reza MD [address] [place] [address] Assigned PCP 03/25/22 04/07/22 Shahida Sutton APRN SOLE POLISHER [address] [place] [address] Assigned PCP 04/08/22 06/30/22 Daylin Ludwig, MIKI [facility] [address] [place] [address] Cardiac Rehabilitation Therapist 05/16/23 Laurel Velasquez MD [address] [place] [address] Assigned Heart and Vascular Provider 05/13/22 06/30/22 Daylin Ludwig EP [facility] [address] [place], [place] [address] Cardiac Rehabilitation Therapist 06/08/22 06/09/23 Paula Reza MD [address] [place], [place] [address] Assigned PCP 07/01/22 07/07/22 Porsha Michaels APRN SOLE POLISHER [address] [place] [address] Assigned Heart and Vascular Provider 07/01/22 07/07/22 Laurel Velasquez MD [address] [place] [address] Assigned Heart and Vascular Provider 07/08/22 08/04/22 Shahida Sutton, DUANE SOLE POLISHER Assigned PCP 07/08/22 09/08/22 Marilin Montaño, SOLE POLISHER [address] [place] [address] Assigned Heart and Vascular Provider 08/05/22 Esha eDwitt MD [address] [place] [address] 218065 Gastroenterology 09/06/22 Heather Mosquera MD [address] [place] [address] Internal Medicine 09/06/22 Paula Reza MD [address] [place] [address] Assigned PCP 09/09/22 01/05/23 Esha Dewitt MD [address] [facility] 36 [place] [address] Assigned Gastroenterology Provider 09/23/22 Valdo Escamilla PA-C [address] [facility] [address] [place], [place] [address] Assigned Neuroscience Provider 09/30/22 Nohelia Abarca PA-C [address] [place] [address] Physician Optical Instrument Repairer Gastroenterology 10/03/22 Heather Mosquera MD [address] [facility] 150 [place] [address] Assigned PCP 01/06/23 Fawad York MD [address] [place], [place] [address] Assigned Musculoskeletal Provider 04/27/23 06/25/23 documented as of this encounter
--- OUTSIDE RECORDS SUMMARY | 2023-09-18 13:53 | XMS_ITS | Encounter Summary ---
Author Organization [place] Address [address] [place] [address] Care Team Providers Care Assembler Movement Name Role Phone Mingo Aldana MD Primary Car e Provider Herman, Shahida Cummings APRN ASSOCIATE PROFESSOR OF PHILOSOPHY Primary Care Provi ford Unavailable Herman, Shahida Cummings APRN ASSOCIATE PROFESSOR OF PHILOSOPHY Unavailable Un available Herman, hSahida Cummings APRN ASSOCIATE PROFESSOR OF PHILOSOPHY Unavailable Un available Carolynn Ramon RN Unavailable [phone] Augustine Callaway MD Unavailable Brady Lion MD Unavailable Un available Nima France-C Unavailable +[phone] Camille Chandler PA-C Unavailable [phone] Anabela Barakat APRN ASSOCIATE PROFESSOR OF PHILOSOPHY Unavailable Nima France-C Unavailable [phone] Basilio Morillo DO Unavailable Fawad York MD Unavailable [phone] Roopa Almonte MD Unavailable [phone] Augustine Callaway MD Unavailable Maryse Burton PA-C Unavailable Marquita Starkey MD Unavailable +[phone] Roopa Almonte MD Unavailable [phone] Griffin Joshi MD Unavailable Rina Magallon RN Unavailable [phone] Paula Reza MD Primary Care Provider [phone] Griffin oJshi MD Unavailable Roopa Almonte MD Unavailable [phone] [facility] center[facility] win DO Unavailable Lydia Bernstein PA-C Unavailable Rosa Maria Love Unavailable [phone] Augustine Callaway MD Unavailable Paula Reza MD Unavailable Keerthi Miner APRN ASSOCIATE PROFESSOR OF PHILOSOPHY Unavailable Herman, Shahida Cummings APRN ASSOCIATE PROFESSOR OF PHILOSOPHY Unavailable Un available Porsha Michaels APRN ASSOCIATE PROFESSOR OF PHILOSOPHY Unavailable [phone] Paula Reza MD Unavailable Herman, Shahida Cummings APRN ASSOCIATE PROFESSOR OF PHILOSOPHY Unavailable Un available Daylin Ludwig Unavailable [phone] Laurel Velasquez MD Unavailable [phone] Daylin Ludwig Unavailable [phone] Paula Reza MD Unavailable Porsha Michaels APRN ASSOCIATE PROFESSOR OF PHILOSOPHY Unavailable [phone] Laurel Velasquez MD Unavailable [phone] Herman, Shahida Cummings APRN ASSOCIATE PROFESSOR OF PHILOSOPHY Unavailable Un available Marilin Montaño ASSOCIATE PROFESSOR OF PHILOSOPHY Unavailable [phone] Esha Dewitt MD Unavailable [phone] Heather Mosquera MD Unavailable Paula Reza MD Unavailable Esha Dewitt MD Unavailable [phone] Valdo Escamilla Deo PA-C Unavailable [phone] Nohelia Abarca PA-C Unavailable [phone] Heather Mosquera MD Unavailable [phone] Fawad York MD Unavailable [phone] Reason for Visit * Reason Onset Date Comments Refill Request 02/09/2014 ambien Encounter Details Date Type Department Care Team (Late st Contact Info) Description 02/09/[address] [address] Mingo Aldana MD [facility] [address] [place] [address] Refill Request (ambien) Social History Tobacco Use Types Packs/Day Years [...] Telephone Encounter - Shayla Callahan RN - 02/09/2014 5:48 PM CSTMessage from MyChart: Original authorizing provider: Mingo Aldana MD, MD Mauro Terrell would like a refill of the following medications: zolpidem (AMBIEN CR) 12.5 MG CR tablet [Mingo Aldana MD, MD] Preferred pharmacy: [id number] - [facility] [address] [facility] Comment: LY CHAIN TECHNICIAN documented in this encounter Plan of Treatment Not on file documented as of this encounter Visit Diagnoses Diagnosis Moderate major depression (H) Major depressive disorder, single episode, moderate documented in this encounter Additional Health Concerns Infection Onset Date Last Indicated Resolved Time Rule Out COVID-19 02/15/2020 02/15/2020 02/16/2020 2: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 Rule Out COVID-19 01/05/2021 01/05/2021 01/06/2021 12:57 PM CDT ESBL 01/05/2021 01/05/2021 Rule Out COVID-19 06/30/2021 06/30/2021 07/01/2021 9:34 AM CDT Rule Out COVID-19 07/25/2021 07/25/2021 07/25/2021 8:02 PM CDT documented as of this encounter Care Teams Assembler Movement Relationship Specialty Start Date End Date Mingo Aldana MD PCP - General Family Practice 07/22/09 07/12/14 Shahida Sutton APRN ASSOCIATE PROFESSOR OF PHILOSOPHY PCP - General Nurse Practitioner 08/17/14 08/04/21 Shahida Sutton APRN ASSOCIATE PROFESSOR OF PHILOSOPHY PCP - Assigned PCP 07/12/14 05/07/18 Paula Reza MD [facility] [address] [address] PCP - General Internal Medicine 08/05/21 Shahida uStton APRN ASSOCIATE PROFESSOR OF PHILOSOPHY Assigned PCP 07/12/14 09/30/21 Carolynn Ramon, KASIE Personal Advocate & Liaison (PAL) 12/17/18 08/07/21 [place] [address] [place] [address] Assigned Musculoskeletal Provider 12/26/19 08/21/20 Brady Lion MD Assigned Heart and Vascular Provider 12/26/19 08/14/20 Nima France PA-C [address] [facility] [address] [place] [address] Assigned Surgical Provider 05/19/20 08/21/20 Camille Chandler PA-C [address] [facility] [address] [place] [address] Assigned Neuroscience Provider 05/19/20 09/14/20 Anabela Barakat APRN CNP [facility] [place] [address] Assigned Heart and Vascular Provider 08/15/20 08/05/21 Nima France PA-C [address] [address] [place] [address] Assigned Musculoskeletal Provider 08/22/20 11/13/20 [place] [address] [facility] [place] [address] Assigned Musculoskeletal Provider 11/14/20 12/04/20 Fawad York MD [address] [place] [address] Assigned Musculoskeletal Provider 12/05/20 02/05/21 Roopa Almonte MD [address] [facility] 200 [place] [address] Endocrinology, Diabetes, and Metabolism 01/19/21 [place] [address] [facility] [address] [place] [address] Assigned Musculoskeletal Provider 02/06/21 09/16/21 Maryse Burton PA-C [address] [place] [address] Physician Information Technology Teacher Dermatology 04/14/21 Marquita Starkey MD [address] [facility] 200 [place] [address] Internal Medicine 05/06/21 05/06/21 Roopa Almonte MD [address] [facility] 200 [place] [address] Hospitalist Endocrinology, Diabetes, and Metabolism 05/30/21 Griffin Joshi MD [address] [facility] [address] [place] [address] Cardiovascular Disease 07/25/21 Rina Magallon, RN Lead Senior It Engineer 07/29/21 07/11/22 Griffin Joshi MD [address] [facility] [address] [place] [address] Assigned Heart and Vascular Provider 08/06/21 10/07/21 Roopa Almonte MD [address] [facility] [address] [place], [place] [address] Assigned Endocrinology Provider 09/10/21 [place] [address] [facility] [address] [place] [address] Assigned Musculoskeletal Provider 09/17/21 10/14/21 yLdia Bernstein PA-C [address] [place] [address] Assigned PCP 10/01/21 10/21/21 Rosa Maria Love CHW Community Health Worker 10/06/21 [place] [address] [place] [address] Assigned Musculoskeletal Provider 10/15/21 04/26/23 Paula Reza MD [address] [place], [place] [address] Assigned PCP 10/22/21 12/23/21 Keerthi Miner APRN ASSOCIATE PROFESSOR OF PHILOSOPHY [address] [place] [address] Assigned Heart and Vascular Provider 10/08/21 02/10/22 Shahida Sutton APRN ASSOCIATE PROFESSOR OF PHILOSOPHY Assigned PCP 12/24/21 03/24/22 Porsha Michaels APRN ASSOCIATE PROFESSOR OF PHILOSOPHY [address] [place] [place] [address] Assigned Heart and Vascular Provider 02/11/22 05/12/22 Paula Reza MD [address] [place] [address] Assigned PCP 03/25/22 04/07/22 Shahida Sutton APRN ASSOCIATE PROFESSOR OF PHILOSOPHY [address] [place] [address] Assigned PCP 04/08/22 06/30/22 Daylin Ludwig, MIKI [facility] [address] [place] [address] Cardiac Rehabilitation Therapist 05/16/23 Laurel Velasquez MD [address] [place] [address] Assigned Heart and Vascular Provider 05/13/22 06/30/22 Daylin Ludwig, MIKI [facility] [address] [place] [address] Cardiac Rehabilitation Therapist 06/08/22 06/09/23 Paula Reza MD [address] [place] [address] Assigned PCP 07/01/22 07/07/22 Porsha Michaels APRN ASSOCIATE PROFESSOR OF PHILOSOPHY [address] [place] [address] Assigned Heart and Vascular Provider 07/01/22 07/07/22 Laurel Velasquez MD [address] [place] [address] Assigned Heart and Vascular Provider 07/08/22 08/04/22 Shahida Sutton APRN ASSOCIATE PROFESSOR OF PHILOSOPHY Assigned PCP 07/08/22 09/08/22 Marilin Montaño, ASSOCIATE PROFESSOR OF PHILOSOPHY [address] [place] [address] Assigned Heart and Vascular Provider 08/05/22 Esha Dewitt MD [address] [facility] 36 [place], [place] [address] MD Gastroenterology 09/06/22 Heather Mosquera MD [address] [place] [address] Internal Medicine 09/06/22 Paula Reza MD [address] [facility] 200 [place], [place] [address] Assigned PCP 09/09/22 01/05/23 Esha Dewitt MD [address] [facility] 36 [place], [place] [address] Assigned Gastroenterology Provider 09/23/22 Valdo Escamilla PA-C [address] [facility] [address] [place], [place] [address] Assigned Neuroscience Provider 09/30/22 Nohelia Abarca PA-C [address] [place], [place] [address] Physician Information Technology Teacher Gastroenterology 10/03/22 Heather Mosquera MD [address] [place] [address] Assigned PCP 01/06/23 Fawad York MD [address] [place] [address] Assigned Musculoskeletal Provider 04/27/23 06/25/23 documented as of this encounter
--- OUTSIDE RECORDS SUMMARY | 2023-09-18 13:53 | XMS_ITS | Encounter Summary ---
Author Organization [place] Address [address] [place] [address] Care Team Providers Care Alley Cleaner Name Role Phone Mingo Aldana MD Primary Car e Provider Herman, Shahida Cummings APRN FORM SETTER Primary Care Provi ford Unavailable Herman, Shahida Cummings APRN FORM SETTER Unavailable Un available Herman, Shahida Cummings APRN FORM SETTER Unavailable Un available Carolynn Ramon RN Unavailable [phone] Augustine Callaway MD Unavailable Brady Lion MD Unavailable Un available Nima France-C Unavailable [phone] Camille Chandler PA-C Unavailable [phone] Anabela Barakat APRN FORM SETTER Unavailable Nima France-C Unavailable [phone] Basilio Morillo DO Unavailable [phone] Fawad York MD Unavailable [phone] Roopa Almonte MD Unavailable [phone] Augustine Callaway MD Unavailable Maryse Burton PA-C Unavailable Marquita Starkey MD Unavailable [phone] Roopa Almonte MD Unavailable [phone] Griffin Joshi MD Unavailable Rina Magallon RN Unavailable [phone] Paula Reza MD Primary Care Provider [phone] Griffin Joshi MD Unavailable Roopa Almonte MD Unavailable [phone] [facility] hospital[facility]ilio win DO Unavailable Lydia Bernstein PA-C Unavailable Rosa Maria Love Unavailable [phone] Augustine Callaway MD Unavailable Paula Reza MD Unavailable Keerthi Miner APRN FORM SETTER Unavailable Herman, Shahida Cummings APRN FORM SETTER Unavailable Un available Porsha Michaels APRN FORM SETTER Unavailable [phone] Paula Reza MD Unavailable Herman, Shahida Cummings APRN FORM SETTER Unavailable Un available Daylin Ludwig Unavailable [phone] Laurel Velasquez MD Unavailable [phone] Daylin Ludwig Unavailable [phone] Paula Reza MD Unavailable Porsha Michaels APRN FORM SETTER Unavailable [phone] Laurel Velasquez MD Unavailable [phone] Herman, Shahida Cummings APRN FORM SETTER Unavailable Un available Marilin Montaño FORM SETTER Unavailable [phone] Esha Dewitt MD Unavailable [phone] Heather Mosquera MD Unavailable [phone] Paula Reza MD Unavailable Esha Dewitt MD Unavailable [phone] Valdo Escamilla PA-C Unavailable Nohelia Abarca PA-C Unavailable [phone] Heather Mosquera MD Unavailable Fawad York MD Unavailable [phone] Encounter Details Date Type Department Care Team (Late st Contact Info) Description 03/27/2013 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 Rule Out COVID-19 01/05/2021 01/05/2021 01/06/2021 12:57 PM CDT ESBL 01/05/2021 01/05/2021 Rule Out COVID-19 06/30/2021 06/30/2021 07/01/2021 9:34 AM CDT Rule Out COVID-19 07/25/2021 07/25/2021 07/25/2021 8:02 PM CDT documented as of this encounter Care Teams Alley Cleaner Relationship Specialty Start Date End Date Mingo Aldana MD PCP - General Family Practice 07/22/09 07/12/14 Shahida Sutton APRN FORM SETTER PCP - General Nurse Practitioner 08/17/14 08/04/21 Shahida Sutton APRN FORM SETTER PCP - Assigned PCP 07/12/14 05/07/18 Paula Reza MD [address] [facility] 200 [place] [address] PCP - General Internal Medicine 08/05/21 Shahida Sutton APRN FORM SETTER Assigned PCP 07/12/14 09/30/21 Carolynn Ramon RN Personal Advocate & Liaison (PAL) 12/17/18 08/07/21 [place] [address] [place], [place] [address] Assigned Musculoskeletal Provider 12/26/19 08/21/20 Brady Lion MD Assigned Heart and Vascular Provider 12/26/19 08/14/20 Nima France PA-C [address] [place] [address] Assigned Surgical Provider 05/19/20 08/21/20 Camille Chandler PA-C [address] [place] [address] Assigned Neuroscience Provider 05/19/20 09/14/20 Anabela Barakat APRN FORM SETTER 1700 [place] [address] Assigned Heart and Vascular Provider 08/15/20 08/05/21 Nima France PA-C 6545 [facility] 450 [place] [address] Assigned Musculoskeletal Provider 08/22/20 11/13/20 [place] [address] [facility] [place], [place] [address] Assigned Musculoskeletal Provider 11/14/20 12/04/20 Fawad York MD [address] [place], [place] [address] Assigned Musculoskeletal Provider 12/05/20 02/05/21 Roopa Almonte MD [address] [facility] 200 [place] [address] Endocrinology, Diabetes, and Metabolism 01/19/21 [place] [address] [facility] 300 [place] [address] Assigned Musculoskeletal Provider 02/06/21 09/16/21 Maryse Burton PA-C [address] [place] [address] Physician Supervisor Wood Crew Dermatology 04/14/21 Marquita Starkey MD [address] [facility] 200 [place] [address] Internal Medicine 05/06/21 05/06/21 Roopa Almonte MD [address] [place] [address] Hospitalist Endocrinology, Diabetes, and Metabolism 05/30/21 Griffin Joshi MD [address] [facility] [address] [place] [address] Cardiovascular Disease 07/25/21 Rina Magallon, RN Lead Mobile Qa Tester 07/29/21 07/11/22 Griffin Joshi MD [address] [place] [address] Assigned Heart and Vascular Provider 08/06/21 10/07/21 Roopa Almonte MD [address] [facility] 200 [place] [address] Assigned Endocrinology Provider 09/10/21 [place] [address] [facility] [place] [address] Assigned Musculoskeletal Provider 09/17/21 10/14/21 Lydia Bernstein PA-C [address] [facility] [address] [place] [address] Assigned PCP 10/01/21 10/21/21 Rosa Maria Love CHW Community Health Worker 10/06/21 [place] [address] [address] [place] [address] Assigned Musculoskeletal Provider 10/15/21 04/26/23 Paula Reza MD [address] [place] [address] Assigned PCP 10/22/21 12/23/21 Keerthi Miner APRN FORM SETTER [address] [place] [address] Assigned Heart and Vascular Provider 10/08/21 02/10/22 Shahida Sutton APRN FORM SETTER Assigned PCP 12/24/21 03/24/22 Porsha Michaels APRN FORM SETTER [address] [place] [address] Assigned Heart and Vascular Provider 02/11/22 05/12/22 Paula Reza MD [address] [place] [address] Assigned PCP 03/25/22 04/07/22 Shahida Sutton APRN FORM SETTER [address] [place] [address] Assigned PCP 04/08/22 06/30/22 Daylin Ludwig, MIKI [facility] [address] [place] [address] Cardiac Rehabilitation Therapist 05/16/23 Laurel Velasquez MD [address] [address] Assigned Heart and Vascular Provider 05/13/22 06/30/22 Daylin Ludwig, MIKI [facility] [address] [place], [place] [address] Cardiac Rehabilitation Therapist 06/08/22 06/09/23 Paula Reza MD [address] [place], [place] [address] Assigned PCP 07/01/22 07/07/22 Porsha Michaels APRN FORM SETTER [address] [place] [address] Assigned Heart and Vascular Provider 07/01/22 07/07/22 Laurel Velasquez MD [address] [place] [address] Assigned Heart and Vascular Provider 07/08/22 08/04/22 Shahida Sutton, DUANE FORM SETTER Assigned PCP 07/08/22 09/08/22 Marilin Montaño, FORM SETTER [address] [place] [address] Assigned Heart and Vascular Provider 08/05/22 Esha Dewitt MD [address] [place] [address] 36 [place], [place] [address] Gastroenterology 09/06/22 Heather Mosquera MD [address] [place] [address] Internal Medicine 09/06/22 Paula Reza MD [address] [place] [address] Assigned PCP 09/09/22 01/05/23 Esha Dewitt MD 420 [facility] 36 [place], [place] [address] Assigned Gastroenterology Provider 09/23/22 Valdo Escamilla PA-C [address] [facility] 103 [place] [address] Assigned Neuroscience Provider 09/30/22 Nohelia Abarca PA-C [address]50 [place] [address] Physician Supervisor Wood Crew Gastroenterology 10/03/22 Heather Mosquera MD [address] [facility] [address] [facility] 150 [place] [address] Assigned PCP 01/06/23 Fawad York MD [address] [place], [place] [address] Assigned Musculoskeletal Provider 04/27/23 06/25/23 documented as of this encounter
--- OUTSIDE RECORDS SUMMARY | 2023-09-18 13:53 | XMS_ITS | Encounter Summary ---
Author Organization [facility] Address [address] [place] [address] Care Team Providers Care Catering Driver Name Role Phone Mingo Aldana MD Primary Car e Provider Herman, Shahida Cummings APRN ACADEMIC COORDINATOR Primary Care Provi ford Unavailable Herman, Shahida Cummings APRN ACADEMIC COORDINATOR Unavailable Un available Herman, Shahida Cummings APRN ACADEMIC COORDINATOR Unavailable Un available Carolynn Ramon RN Unavailable [phone] Augustine Callaway MD Unavailable Brady Lion MD Unavailable Un available Nima France-C Unavailable [phone] Camille Chandler PA-C Unavailable [phone] Anabela Barakat APRN ACADEMIC COORDINATOR Unavailable Nima France-C Unavailable [phone] Basilio Morillo DO Unavailable Fawad York MD Unavailable [phone] Roopa Almonte MD Unavailable [phone] Augustine Callaway MD Unavailable Maryse Burton PA-C Unavailable Marquita Starkey MD Unavailable [phone] Roopa Almonte MD Unavailable [phone] Griffin Joshi MD Unavailable Rina Magallon RN Unavailable [phone] Paula Reza MD Primary Care Provider [phone] Griffin Joshi MD Unavailable Roopa Almonte MD Unavailable [phone] [facility] win DO Unavailable Lydia Bernstein PA-C Unavailable Rosa Maria Love Unavailable [phone] Augustine Callaway MD Unavailable Paula Reza MD Unavailable Keerthi Miner APRN ACADEMIC COORDINATOR Unavailable Herman, Shahida Cummings APRN ACADEMIC COORDINATOR Unavailable Un available Porsha Michaels APRN ACADEMIC COORDINATOR Unavailable [phone] Paula Reza MD Unavailable Herman, Shahida Cummings APRN ACADEMIC COORDINATOR Unavailable Un available Daylin Ludwig Unavailable [phone] Laurel Velasquez MD Unavailable [phone] Daylin Ludwig Unavailable [phone] Paula Reza MD Unavailable Porsha Michaels APRN ACADEMIC COORDINATOR Unavailable [phone] Laurel Velasquez MD Unavailable [phone] Herman, Shahida Cummings APRN ACADEMIC COORDINATOR Unavailable Un available Marilin Montaño ACADEMIC COORDINATOR Unavailable [phone] Esha Dewitt MD Unavailable [phone] Heather Mosquera MD Unavailable Paula Reza MD Unavailable Esha Dewitt MD Unavailable [phone] Valdo Escamilla Deo PA-C Unavailable Nohelia Abarca PA-C Unavailable Heather Mosquera MD Unavailable [phone] Fawad York MD Unavailable [phone] Reason for Visit * Reason Onset Date Comments Refill Request 01/05/2014 norco Encounter Details Date Type Department Care Team (Late st Contact Info) Description 01/05/[address] [address] Mingo Aldana MD [facility] [address] [place] [address] Refill Request ([employer]) Social History Tobacco Use Types Packs/Day Years [...] encounter Miscellaneous Notes * Telephone Encounter - Mingo Aldana MD - 01/05/2014 2:11 PM CST Patient informed to pick-up via [employer]. 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 * Telephone Encounter - Shayla Callahan RN - 01/05/2014 12:52 PM CSTMessage from [employer]: Original authorizing provider: Mingo Aldana MD, MD Mauro Terrell would like a refill of the following medications: HYDROcodone-acetaminophen (NORCO) 10-325 MG per tablet [Mingo Aldana MD, MD] Preferred pharmacy: [id number] [address] [address]on 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 documented in this encounter Plan of Treatment Not on file documented as of this encounter Visit Diagnoses Diagnosis Cervicalgia Radicular pain in right arm Neuralgia, neuritis, and radiculitis, unspecified documented in this encounter Additional Health Concerns Infection Onset Date Last Indicated Resolved Time Rule Out COVID-19 02/15/2020 02/15/2020 02/16/2020 2:32 PM 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 Rule Out COVID-19 01/05/2021 01/05/2021 01/06/2021 12:57 PM CDT ESBL 01/05/2021 01/05/2021 Rule Out COVID-19 06/30/2021 06/30/2021 07/01/2021 9:34 AM CDT Rule Out COVID-19 07/25/2021 07/25/2021 07/25/2021 8:02 PM CDT documented as of this encounter Care Teams Catering Driver Relationship Specialty Start Date End Date Mingo Aldana MD PCP - General Family Practice 07/22/09 07/12/14 Shahida Sutton APRN ACADEMIC COORDINATOR PCP - General Nurse Practitioner 08/17/14 08/04/21 Shahida Sutton APRN ACADEMIC COORDINATOR PCP - Assigned PCP 07/12/14 05/07/18 Paula Reza MD [address] [address] PCP - General Internal Medicine 08/05/21 Shahida Sutton APRN CNP Assigned PCP 07/12/14 09/30/21 Carolynn Ramon, KASIE Personal Advocate & Liaison (PAL) 12/17/18 08/07/21 [place] [address] [place] [address] Assigned Musculoskeletal Provider 12/26/19 08/21/20 Brady Lion MD Assigned Heart and Vascular Provider 12/26/19 08/14/20 Nima France PA-C [address] [place] [address] Assigned Surgical Provider 05/19/20 08/21/20 Camille Chandler PA-C [address] [place] [address] Assigned Neuroscience Provider 05/19/20 09/14/20 Anabela Barakat APRN ACADEMIC COORDINATOR [address] [place] [address] Assigned Heart and Vascular Provider 08/15/20 08/05/21 Nima France PA-C [address] [place], [place] [address] Assigned Musculoskeletal Provider 08/22/20 11/13/20 [place] [address] [facility] [place] [address] Assigned Musculoskeletal Provider 11/14/20 12/04/20 Fawad York MD [address] [place], [place] [address] Assigned Musculoskeletal Provider 12/05/20 02/05/21 Roopa Almonte MD [address] [facility] [address] [place] [address] Endocrinology, Diabetes, and Metabolism 01/19/21 [place] [address] [facility] [address] [place] [address] Assigned Musculoskeletal Provider 02/06/21 09/16/21 Maryse Burton PA-C [address] [place] [address] Physician Customer Service Leader Dermatology 04/14/21 Marquita Starkey MD [address] [facility] 200 [place] [address] Internal Medicine 05/06/21 05/06/21 Roopa Almonte MD [address] [facility] [address] [place] [address] Hospitalist Endocrinology, Diabetes, and Metabolism 05/30/21 Griffin Joshi MD [address] [place] [address] Cardiovascular Disease 07/25/21 Rina Magallon, RN Lead Aerosol Line Operator 07/29/21 07/11/22 Griffin Joshi MD [address] [place] [address] Assigned Heart and Vascular Provider 08/06/21 10/07/21 Roopa Almonte MD [address] [facility] [address] [place] [address] Assigned Endocrinology Provider 09/10/21 [place] [address] [facility] [place] [address] Assigned Musculoskeletal Provider 09/17/21 10/14/21 Lydia Bernstein PA-C [address] [place] [address] Assigned PCP 10/01/21 10/21/21 Rosa Maria Love Cristina Community Health Worker 10/06/21 [place] [address] [facility] [address] [place] [address] Assigned Musculoskeletal Provider 10/15/21 04/26/23 Paula Reza MD [address] [facility] [address] [place] [address] Assigned PCP 10/22/21 12/23/21 Keerthi Miner APRN ACADEMIC COORDINATOR [address] [place] [address] Assigned Heart and Vascular Provider 10/08/21 02/10/22 Shahida Sutton APRN ACADEMIC COORDINATOR Assigned PCP 12/24/21 03/24/22 Porsha Michaels APRN ACADEMIC COORDINATOR [address] [place] [address] Assigned Heart and Vascular Provider 02/11/22 05/12/22 Paula Reza MD [address] [place] [address] Assigned PCP 03/25/22 04/07/22 Shahida Sutton APRN ACADEMIC COORDINATOR [address] [place] [address] Assigned PCP 04/08/22 06/30/22 Daylin Ludwig, EP [facility] [address] [place] [address] Cardiac Rehabilitation Therapist 05/16/23 Laurel Velasquez MD [address] [place] [address] Assigned Heart and Vascular Provider 05/13/22 06/30/22 Daylin Ludwig, MIKI [facility] [address] [place] [address] Cardiac Rehabilitation Therapist 06/08/22 06/09/23 Paula Reza MD [address] [place] [address] Assigned PCP 07/01/22 07/07/22 Porsha Michaels APRN ACADEMIC COORDINATOR [address] [place] [address] Assigned Heart and Vascular Provider 07/01/22 07/07/22 Laurel Velasquez MD [address] [place], [place] [address] Assigned Heart and Vascular Provider 07/08/22 08/04/22 Shahida Sutton, HEEL BOOM OPERATOR ACADEMIC COORDINATOR Assigned PCP 07/08/22 09/08/22 Marilin Montaño, ACADEMIC COORDINATOR [address] [place] [address] Assigned Heart and Vascular Provider 08/05/22 Esha Dewitt MD [address] [address] Gastroenterology 09/06/22 Heather Mosquera MD [address] [place] [address] Internal Medicine 09/06/22 Paula Reza MD [address] [facility] [address] [place] [address] Assigned PCP 09/09/22 01/05/23 Esha Dewitt MD [address] [address] Assigned Gastroenterology Provider 09/23/22 Valdo Escamilla PA-C [address] [place] [address] Assigned Neuroscience Provider 09/30/22 Nohelia Abarca PA-C [address] [place] [address] Physician Customer Service Leader Gastroenterology 10/03/22 Heather Mosquera MD [address] [address] Assigned PCP 01/06/23 Fawad York MD [address] [place], [place] [address] Assigned Musculoskeletal Provider 04/27/23 06/25/23 documented as of this encounter
--- OUTSIDE RECORDS SUMMARY | 2023-09-18 13:53 | XMS_ITS | Encounter Summary ---
Author Organization [facility] Address [address] [place] [address] Care Team Providers Care Airline Security Representative Name Role Phone Mingo Aldana MD Primary Car e Provider Herman, Shahida Cummings APRN STUDENT SERVICES DIRECTOR Primary Care Provi ford Unavailable Herman, Shahida Cummings APRN STUDENT SERVICES DIRECTOR Unavailable Un available Herman, Shahida Cummings APRN STUDENT SERVICES DIRECTOR Unavailable Un available Carolynn Ramon RN Unavailable [phone] Augustine Callaway MD Unavailable Brady Lion MD Unavailable Un available Nima France-C Unavailable [phone] Camille Chandler PA-C Unavailable [phone] Anabela Barakat APRN STUDENT SERVICES DIRECTOR Unavailable Nima France-C Unavailable [phone] Basilio Morillo DO Unavailable Fawad York MD Unavailable [phone] Roopa Almonte MD Unavailable [phone] Augustine Callaway MD Unavailable Maryse Burton PA-C Unavailable Marquita Starkey MD Unavailable [phone] Roopa Almonte MD Unavailable [phone] Griffin Joshi MD Unavailable Rina Magallon RN Unavailable [phone] Paula Reza MD Primary Care Provider [phone] Griffin Joshi MD Unavailable Roopa Almonte MD Unavailable [phone] [facility] rh[facility] islandBasilio win DO Unavailable Lydia Bernstein PA-C Unavailable Rosa Maria Love Unavailable [phone] Augustine Callaway MD Unavailable Paula Reza MD Unavailable Keerthi Miner APRN STUDENT SERVICES DIRECTOR Unavailable Herman, Shahida Cummings APRN STUDENT SERVICES DIRECTOR Unavailable Un available Porsha Michaels APRN STUDENT SERVICES DIRECTOR Unavailable [phone] Paula Reza MD Unavailable Herman, Shahida Cummings APRN STUDENT SERVICES DIRECTOR Unavailable Un available Daylin Ludwig Unavailable [phone] Laurel Velasquez MD Unavailable [phone] Daylin Ludwig Unavailable [phone] Paula Reza MD Unavailable Porsha Michaels APRN STUDENT SERVICES DIRECTOR Unavailable [phone] Laurel Velasquez MD Unavailable [phone] Herman, Shahida Cummings APRN STUDENT SERVICES DIRECTOR Unavailable Un available Marilin Montaño STUDENT SERVICES DIRECTOR Unavailable [phone] Esha Dewitt MD Unavailable [phone] Heather Mosquera MD Unavailable [phone] Paula Reza MD Unavailable Esha Dewitt MD Unavailable [phone] AyseStanford cabrerashiv Desouza PA-C Unavailable Nohelia Abarca PA-C Unavailable [phone] Heather Mosquera MD Unavailable Fawad York MD Unavailable [phone] Reason for Visit * Reason Onset Date Comments Outreach 04/26/2013 PHS Encounter Details Date Type Department Care Team (Late st Contact Info) Description 04/26/[address] [address] Mingo Aldana MD [facility] [address] [place] [address] Outreach ([facility]) Social History Tobacco Use Types Packs/Day Years [...] encounter Miscellaneous Notes * Telephone Encounter - Rebel Mejia - 05/01/2013 3:52 PM CST 05/01/2013 Call Regarding Preventive Health Screening Colonoscopy Attempt 2 Message on voicemail Comments: Outreach Director Of Aviation MRL TH EDUCATION COORDINATOR * Telephone Encounter - Sadiq Sol - 04/26/2013 5:12 PM CST 04/26/2013 Call Regarding Preventive Health Screening Colonoscopy Attempt 1 Message on voicemail Comments: Outreach Director Of Aviation rbg TH EDUCATION COORDINATOR documented in this encounter Plan of Treatment Not on file documented as of this encounter Visit Diagnoses Not on filedocumented in this encounter Additional Health Concerns Infection Onset Date Last Indicated Resolved Time Rule Out COVID-19 02/15/2020 02/15/2020 02/16/2020 2:32 PM HEALTH EDUCATION COORDINATOR Rule Out COVID-19 01/05/2021 01/05/2021 01/06/2021 12:57 PM CDT ESBL 01/05/2021 01/05/2021 Rule Out COVID-19 06/30/2021 06/30/2021 07/01/2021 9:34 AM CDT Rule Out COVID-19 07/25/2021 07/25/2021 07/25/2021 8:02 PM CDT documented as of this encounter Care Teams Airline Security Representative Relationship Specialty Start Date End Date Mingo Aldana MD PCP - General Family Practice 07/22/09 07/12/14 Shahida Sutton APRN STUDENT SERVICES DIRECTOR PCP - General Nurse Practitioner 08/17/14 08/04/21 Shahida Sutton APRN STUDENT SERVICES DIRECTOR PCP - Assigned PCP 07/12/14 05/07/18 Paula Reza MD [address] [facility] [address] [place], [place] [address] PCP - General Internal Medicine 08/05/21 Shahida Sutton APRN STUDENT SERVICES DIRECTOR Assigned PCP 07/12/14 09/30/21 Carolynn Ramon, KASIE Personal Advocate & Liaison (PAL) 12/17/18 08/07/21 [place] [address] [place] [address] Assigned Musculoskeletal Provider 12/26/19 08/21/20 Brady Lino MD Assigned Heart and Vascular Provider 12/26/19 08/14/20 Nima France PA-C [address] [facility] [address] [place] [address] Assigned Surgical Provider 05/19/20 08/21/20 Camille Chandler PA-C [address] [facility] [address] [place] [address] Assigned Neuroscience Provider 05/19/20 09/14/20 Anabela Barakat APRN STUDENT SERVICES DIRECTOR [address] [place] [address] Assigned Heart and Vascular Provider 08/15/20 08/05/21 Nima France PA-C 6545 [facility] 450 [place] [address] Assigned Musculoskeletal Provider 08/22/20 11/13/20 [place] [address] [facility] [place] [address] Assigned Musculoskeletal Provider 11/14/20 12/04/20 Fawad York MD [address] [place] [address] Assigned Musculoskeletal Provider 12/05/20 02/05/21 Roopa Almonte MD [address] [facility] 200 [place] [address] Endocrinology, Diabetes, and Metabolism 01/19/21 [place] [address] [facility] 300 [place] [address] Assigned Musculoskeletal Provider 02/06/21 09/16/21 Maryse Burton PA-C [address] [place] [address] Physician Mail Carrier And Clerk Dermatology 04/14/21 Marquita Starkey MD [address] [facility] 200 [place] [address] Internal Medicine 05/06/21 05/06/21 Roopa Almonte MD [address] [facility] [address] [place] [address] Hospitalist Endocrinology, Diabetes, and Metabolism 05/30/21 Griffin Joshi MD [address] [facility]00 [place] [address] Cardiovascular Disease 07/25/21 Rina Magallon, RN Lead Siding Stapler 07/29/21 07/11/22 Griffin Joshi MD [address] [facility] [place] [address] Assigned Heart and Vascular Provider 08/06/21 10/07/21 Roopa Almonte MD [address] [facility] 200 [place], [place] [address] Assigned Endocrinology Provider 09/10/21 [place] [address] [facility] [place] [address] Assigned Musculoskeletal Provider 09/17/21 10/14/21 Lydia Bernstein, HUYC [address] [place] [address] Assigned PCP 10/01/21 10/21/21 Rosa Maria Love CHW Community Health Worker 10/06/21 [place] [address] [place] [address] Assigned Musculoskeletal Provider 10/15/21 04/26/23 Paula Reza MD [address] [place] [address] Assigned PCP 10/22/21 12/23/21 Keerthi Miner APRN STUDENT SERVICES DIRECTOR [address] [place] [address] Assigned Heart and Vascular Provider 10/08/21 02/10/22 Shahida Sutton, CERTIFIED ART THERAPIST STUDENT SERVICES DIRECTOR Assigned PCP 12/24/21 03/24/22 Porsha Michaels APRN STUDENT SERVICES DIRECTOR [address] [address] Assigned Heart and Vascular Provider 02/11/22 05/12/22 Paula Reza MD [address] [place] [address] Assigned PCP 03/25/22 04/07/22 Shahida Sutton APRN STUDENT SERVICES DIRECTOR [address] [place] [address] Assigned PCP 04/08/22 06/30/22 Daylin Ludwig, MIKI [facility] [address] [place] [address] Cardiac Rehabilitation Therapist 05/16/23 Laurel Velasquez MD [address] [address] Assigned Heart and Vascular Provider 05/13/22 06/30/22 Daylin Ludwig, MIKI [facility] [address] [address] Cardiac Rehabilitation Therapist 06/08/22 06/09/23 Paula Reza MD [address] [address] Assigned PCP 07/01/22 07/07/22 Porsha Michaels APRN STUDENT SERVICES DIRECTOR [address] [address] Assigned Heart and Vascular Provider 07/01/22 07/07/22 Laurel Velasquez MD [address] [place] [address] Assigned Heart and Vascular Provider 07/08/22 08/04/22 Shahida Sutton APRN STUDENT SERVICES DIRECTOR Assigned PCP 07/08/22 09/08/22 Marilin Montaño, STUDENT SERVICES DIRECTOR [address] [place] [address] Assigned Heart and Vascular Provider 08/05/22 Esha Dewitt MD 420 [facility] 36 [place] [address] MD Gastroenterology 09/06/22 Heather Mosquera MD [address] [place] [address] Internal Medicine 09/06/22 Paula Reza MD [address] [facility] 200 [place], [place] [address] Assigned PCP 09/09/22 01/05/23 Esha Dewitt MD 420 [facility] 36 [place], [place] [address] Assigned Gastroenterology Provider 09/23/22 Valdo Escamilla PA-C [address] [facility] [address] [place] [id number] Assigned Neuroscience Provider 09/30/22 Nohelia Abarca PA-C [address] [facility] [place] [place] [address] Physician Mail Carrier And Clerk Gastroenterology 10/03/22 Heather Mosquera MD [address] [place] [address] Assigned PCP 01/06/23 Fawad York MD 9 [place] [address] Assigned Musculoskeletal Provider 04/27/23 06/25/23 documented as of this encounter
--- OUTSIDE RECORDS SUMMARY | 2023-09-18 13:53 | XMS_ITS | Encounter Summary ---
Author Organization [place] Address [address] [place] [address] Care Team Providers Care Sheep Boner Name Role Phone Mingo Aldana MD Primary Car e Provider Herman, Shahida Cummings APRN CHAIR INSPECTOR Primary Care Provi ford Unavailable Herman, Shahida Cummings APRN CHAIR INSPECTOR Unavailable Un available Herman, Shahida Cummings APRN CHAIR INSPECTOR Unavailable Un available Carolynn Ramon RN Unavailable [phone] Augustine Callaway MD Unavailable Brady Lion MD Unavailable Un available Nima France-C Unavailable [phone] Camille Chandler PA-C Unavailable [phone] Anabela Barakat APRN CHAIR INSPECTOR Unavailable Nima France-C Unavailable [phone] Basilio Morillo DO Unavailable Fawad York MD Unavailable [phone] Roopa Almonte MD Unavailable [phone] Augustine Callaway MD Unavailable Maryse Burton PA-C Unavailable Marquita Starkey MD Unavailable [phone] Roopa Almonte MD Unavailable [phone] Griffin Joshi MD Unavailable Rina Magallon RN Unavailable [phone] Paula Reza MD Primary Care Provider [phone] Griffin Joshi MD Unavailable Roopa Almonte MD Unavailable [phone] [facility] DO Unavailable Lydia Bernstein PA-C Unavailable Rosa Maria Love Unavailable [phone] Augustine Callaway MD Unavailable Paula Reza MD Unavailable Keerthi Miner APRN CHAIR INSPECTOR Unavailable Herman, Shahida Cummings APRN CHAIR INSPECTOR Unavailable Un available Porsha Michaels APRN CHAIR INSPECTOR Unavailable [phone] Paula Reza MD Unavailable Herman, Shahida Cummings APRN CHAIR INSPECTOR Unavailable Un available Daylin Ludwig Unavailable [phone] Laurel Velasquez MD Unavailable [phone] Daylin Ludwig Unavailable [phone] Paula Reza MD Unavailable Porsha Michaels APRN CHAIR INSPECTOR Unavailable [phone] Laurel Velasquez MD Unavailable [phone] Herman, Shahida Cummings APRN CHAIR INSPECTOR Unavailable Un available Marilin Montaño CHAIR INSPECTOR Unavailable [phone] Esha Dewitt MD Unavailable [phone] Heather Mosquera MD Unavailable [phone] Paula Reza MD Unavailable Esha Dewitt MD Unavailable [phone] Valdo Escamilla Deo PA-C Unavailable Rima Wilfredosima PA-C Unavailable [phone] Heather Mosquera MD Unavailable [phone] Fawad York MD Unavailable [phone] Reason for Visit * Reason Onset Date Comments Refill Request 10/15/2012 Encounter Details Date Type Department Care Team (Late st Contact Info) Description [facility]/15[facility] [place] [id number] [address] Kavon Garrido MD [address] [facility] [place] [address] Refill Request Social History Tobacco Use Types [...] encounter Miscellaneous Notes * Telephone Encounter - Tabitha Zarate RN - 10/15/2012 4:24 PM CDTMessage from Jake[place]: Tabitha Farrell RN viviane Oct 15, 2012 4:23 PM ----- Message ----- From: Mauro Terrell Sent: 10/15/2012 4:22 PM To: [facility] Subject: Medication Renewal Request Original authorizing provider: Kavon Garrido MD, MD Mauro Terrell would like a refill of the following medications: zolpidem (AMBIEN CR) 12.5 MG CR tablet [Kavon Garrido MD, MD] Preferred pharmacy: [id number] [id number] [address] Comment: Dr. Garrido, we have an appt scheduled next week. In you have any concerns I can be contacted at [phone]. 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 Out COVID-19 01/05/2021 01/05/2021 01/06/2021 12:57 PM CDT ESBL 01/05/2021 01/05/2021 Rule Out COVID-19 06/30/2021 06/30/2021 07/01/2021 9:34 AM CDT Rule Out COVID-19 07/25/2021 07/25/2021 07/25/2021 8:02 PM CDT documented as of this encounter Care Teams Sheep Boner Relationship Specialty Start Date End Date Mingo Aldana MD PCP - General Family Practice 07/22/09 07/12/14 Shahida Sutton APRN CNP PCP - General Nurse Practitioner 08/17/14 08/04/21 Shahida Sutton APRN CNP PCP - Assigned PCP 07/12/14 05/07/18 Paula Reza MD [address] [facility] [address] [place] [address] PCP - General Internal Medicine 08/05/21 Shahida Sutton APRN CNP Assigned PCP 07/12/14 09/30/21 Carolynn Ramon, KASIE Personal Advocate & Liaison (PAL) 12/17/18 08/07/21 [place] [address] [place] [address] Assigned Musculoskeletal Provider 12/26/19 08/21/20 Brady Lion MD Assigned Heart and Vascular Provider 12/26/19 08/14/20 Nima France PA-C [address] [place] [address] Assigned Surgical Provider 05/19/20 08/21/20 Camille Chandler PA-C [address] [place], [place] [address] Assigned Neuroscience Provider 05/19/20 09/14/20 Anabela Barakat APRN CHAIR INSPECTOR [address] [place] [address] Assigned Heart and Vascular Provider 08/15/20 08/05/21 Nima France PA-C [address] [place], [place] [address] Assigned Musculoskeletal Provider 08/22/20 11/13/20 [place] [address] [facility] [place] [address] Assigned Musculoskeletal Provider 11/14/20 12/04/20 Fawad York MD [address] [place], [place] [address] Assigned Musculoskeletal Provider 12/05/20 02/05/21 Roopa Almonte MD [address] [facility] [address] [place] [address] Endocrinology, Diabetes, and Metabolism 01/19/21 [place] [address] [facility] [address] [place] [address] Assigned Musculoskeletal Provider 02/06/21 09/16/21 Maryse Burton PA-C [address] [place] [address] Physician Fountain Brush Assembler Dermatology 04/14/21 Marquita Starkey MD [address] [facility] [address] [place] [address] Internal Medicine 05/06/21 05/06/21 Roopa Almonte MD [address] [facility] 200 [place] [address] Hospitalist Endocrinology, Diabetes, and Metabolism 05/30/21 Griffin Joshi MD [address] [place] [address] Cardiovascular Disease 07/25/21 Rina Magallon, RN Lead Medical Transcription Editor 07/29/21 07/11/22 Griffin Joshi MD [address] [place] [address] Assigned Heart and Vascular Provider 08/06/21 10/07/21 Roopa Almonte MD [address] [facility] 200 [place] [address] Assigned Endocrinology Provider 09/10/21 [place] [address] [facility] [place] [address] Assigned Musculoskeletal Provider 09/17/21 10/14/21 Lydia Bernstein PA-C [address] [place] [address] Assigned PCP 10/01/21 10/21/21 Rosa Maria Loev Cristina Community Health Worker 10/06/21 [place] [address] [facility] [address] [place] [address] Assigned Musculoskeletal Provider 10/15/21 04/26/23 Paula Reza MD [address] [place], [place] [address] Assigned PCP 10/22/21 12/23/21 Keerthi Miner APRN CHAIR INSPECTOR [address] [place] [address] Assigned Heart and Vascular Provider 10/08/21 02/10/22 Shahida Sutton APRN CHAIR INSPECTOR Assigned PCP 12/24/21 03/24/22 Porsha Michaels APRN CHAIR INSPECTOR [address] [place] [address] Assigned Heart and Vascular Provider 02/11/22 05/12/22 Paula Reza MD [address] [place], [place] [address] Assigned PCP 03/25/22 04/07/22 Shahida Sutton APRN CHAIR INSPECTOR [address] [place] [address] Assigned PCP 04/08/22 06/30/22 Daylin Ludwig, EP [facility] [address] [place] [address] Cardiac Rehabilitation Therapist 05/16/23 Laurel Velasquez MD [address] [place] [place] [address] Assigned Heart and Vascular Provider 05/13/22 06/30/22 Daylin Ludwig, [facility]KI [facility] [address] [place] [address] Cardiac Rehabilitation Therapist 06/08/22 06/09/23 Paula Reza MD [address] [place] [address] Assigned PCP 07/01/22 07/07/22 Porsha Michaels APRN CHAIR INSPECTOR [address] [place] [address] Assigned Heart and Vascular Provider 07/01/22 07/07/22 Laurel Velasquez MD [address] [place], [place] [address] Assigned Heart and Vascular Provider 07/08/22 08/04/22 Shahida Sutton, TAG WRITER CHAIR INSPECTOR Assigned PCP 07/08/22 09/08/22 Marilin Montaño, CHAIR INSPECTOR [address] [place] [address] Assigned Heart and Vascular Provider 08/05/22 Esha Dewitt MD [address] [place] [address] Gastroenterology 09/06/22 Heather Mosquera MD [address] [place] [address] Internal Medicine 09/06/22 Paula Reza MD [address] [facility] 200 [place] [address] Assigned PCP 09/09/22 01/05/23 Esha Dewitt MD [address] [place] [address] Assigned Gastroenterology Provider 09/23/22 Valdo Escamilla PA-C [address] [place] [address] Assigned Neuroscience Provider 09/30/22 Nohelia Abarca PA-C [address] [place] [address] Physician Fountain Brush Assembler Gastroenterology 10/03/22 Heather Mosquera MD [address] [address] Assigned PCP 01/06/23 Fawad York MD [address] [place], [place] [address] Assigned Musculoskeletal Provider 04/27/23 06/25/23 documented as of this encounter
--- OUTSIDE RECORDS SUMMARY | 2023-09-18 13:54 | XMS_ITS | Encounter Summary ---
Author Organization [place] Address [address] [place] [address] Care Team Providers Care Customer Support Consultant Name Role Phone Mingo Aldana MD Primary Car e Provider Herman, Shahida Cummings APRN RN REGISTRY Primary Care Provi ford Unavailable Herman, Shahida Cummings APRN RN REGISTRY Unavailable Un available Herman, Shahida Cummings APRN RN REGISTRY Unavailable Un available Carolynn Ramon RN Unavailable [phone] Augustine Callaway MD Unavailable Brady Lion MD Unavailable Un available Nima France-C Unavailable [phone] Camille Chandler PA-C Unavailable [phone] Anabela Barakat APRN RN REGISTRY Unavailable Nima France-C Unavailable [phone] Basilio Morillo DO Unavailable [phone] Fawad York MD Unavailable [phone] Roopa Almonte MD Unavailable [phone] Augustine Callaway MD Unavailable Maryse Burton PA-C Unavailable Marquita Starkey MD Unavailable [phone] Roopa Almonte MD Unavailable [phone] Griffin Joshi MD Unavailable Rina Magallon RN Unavailable [phone] Paula Reza MD Primary Care Provider [phone] Griffin Joshi MD Unavailable Roopa Almonte MD Unavailable [phone] [facility] center[facility] win DO Unavailable Lydia Bernstein PA-C Unavailable Rosa Maria Love Unavailable [phone] Augustine Callaway MD Unavailable Paula Reza MD Unavailable Keerthi Miner APRN RN REGISTRY Unavailable Herman, Shahida Cummings APRN RN REGISTRY Unavailable Un available Porsha Michaels APRN RN REGISTRY Unavailable [phone] Paula Reza MD Unavailable Herman, Shahida Cummings APRN RN REGISTRY Unavailable Un available Daylin Ludwig Unavailable [phone] Laurel Velasquez MD Unavailable [phone] Daylin Ludwig Unavailable [phone] Paula Reza MD Unavailable Porsha Michaels APRN RN REGISTRY Unavailable [phone] Laurel Velasquez MD Unavailable [phone] Herman, Shahida Cummings APRN RN REGISTRY Unavailable Un available Marilin Montaño RN REGISTRY Unavailable [phone] Esha Dewitt MD Unavailable [phone] Heather Mosquera MD Unavailable Paula Reza MD Unavailable Esha Dewitt MD Unavailable [phone] Valdo Escamilla PA-C Unavailable [phone] Nohelia Abarca PA-C Unavailable [phone] Heather Mosquera MD Unavailable [phone] Fawad York MD Unavailable Encounter Details Date Type Department Care Team (Late st Contact Info) Description 06/06/2010 [facility] [address] [place] [address] [place] [id number] [place] [address] Social History Tobacco Use Types Packs/Day Years Used Date Smoking Tobacco: Former Cigarettes 0.5 25 1 - 12/09/2006 Cigars Comments:occasionally Alcohol Use Standard Drinks/Week Comments Yes [...] Out COVID-19 02/15/2020 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 COVID-19 01/05/2021 01/05/2021 01/06/2021 12:57 PM CDT ESBL 01/05/2021 01/05/2021 Rule Out COVID-19 06/30/2021 06/30/2021 07/01/2021 9:34 AM CDT Rule Out COVID-19 07/25/2021 07/25/2021 07/25/2021 8:02 PM CDT documented as of this encounter Care Teams Customer Support Consultant Relationship Specialty Start Date End Date Mingo Aldana MD PCP - General Family Practice 07/22/09 07/12/14 Shahida Sutton APRN RN REGISTRY PCP - General Nurse Practitioner 08/17/14 08/04/21 Shahida Sutton APRN RN REGISTRY PCP - Assigned PCP 07/12/14 05/07/18 Paula Reza MD [address] [place], [place] [address] PCP - General Internal Medicine 08/05/21 Shahida Sutton APRN RN REGISTRY Assigned PCP 07/12/14 09/30/21 Carolynn Ramon, KASIE Personal Advocate & Liaison (PAL) 12/17/18 08/07/21 [place] [address] [place], [place] [address] Assigned Musculoskeletal Provider 12/26/19 08/21/20 Brady Lion MD Assigned Heart and Vascular Provider 12/26/19 08/14/20 Nima France PA-C [address] [place] [address] Assigned Surgical Provider 05/19/20 08/21/20 Camille Chandler PA-C [address] [place] [address] Assigned Neuroscience Provider 05/19/20 09/14/20 Anabela Barakat APRN CNP [address] [place] [address] Assigned Heart and Vascular Provider 08/15/20 08/05/21 Nima France PA-C [address] [facility] 450 [place] [address] Assigned Musculoskeletal Provider 08/22/20 11/13/20 [place] [address] [place] [address] Assigned Musculoskeletal Provider 11/14/20 12/04/20 Fawad York MD [address] [place] [address] Assigned Musculoskeletal Provider 12/05/20 02/05/21 Roopa Almonte MD [address] [facility] 200 [place] [address] Endocrinology, Diabetes, and Metabolism 01/19/21 [place] [address] [facility] [address] [place] [address] Assigned Musculoskeletal Provider 02/06/21 09/16/21 Maryse Burton PA-C [address] [place] [address] Physician Cement Fittings Maker Dermatology 04/14/21 Marquita Starkey MD [address] [facility] 200 [place] [address] Internal Medicine 05/06/21 05/06/21 Roopa Almonte MD [address] [facility] [address] [place] [address] Hospitalist Endocrinology, Diabetes, and Metabolism 05/30/21 Griffin Joshi MD [address] [place] [address] Cardiovascular Disease 07/25/21 Rina Magallon, RN Lead Registered Mail Clerk 07/29/21 07/11/22 Griffin Joshi MD [address] [place] [address] Assigned Heart and Vascular Provider 08/06/21 10/07/21 Roopa Almonte MD [address] [facility] [address] [place], [place] [address] Assigned Endocrinology Provider 09/10/21 [place] [address] [facility] [place] [address] Assigned Musculoskeletal Provider 09/17/21 10/14/21 Lydia Bernstein PA-C [address] [place] [id number] Assigned PCP 10/01/21 10/21/21 Rosa Maria Love CHW Community Health Worker 10/06/21 [place] [address] [place] [address] Assigned Musculoskeletal Provider 10/15/21 04/26/23 Paula Reza MD [address] [place] [address] Assigned PCP 10/22/21 12/23/21 Keerthi Miner APRN RN REGISTRY [address] [place] [address] Assigned Heart and Vascular Provider 10/08/21 02/10/22 Shahida Sutton APRN RN REGISTRY Assigned PCP 12/24/21 03/24/22 Porsha Michaels APRN RN REGISTRY [address] [place] [address] Assigned Heart and Vascular Provider 02/11/22 05/12/22 Paula Reza MD [address] [place] [address] Assigned PCP 03/25/22 04/07/22 Shahida Sutton APRN RN REGISTRY [address] [place] [address] Assigned PCP 04/08/22 06/30/22 Daylin Ludwig EP [facility] [address] [place] [address] Cardiac Rehabilitation Therapist 05/16/23 Laurel Velasquez MD [address] [place] [address] Assigned Heart and Vascular Provider 05/13/22 06/30/22 Daylin Ludwig EP [facility] [address] [place] [address] Cardiac Rehabilitation Therapist 06/08/22 06/09/23 Paula Reza MD [address] [facility] [address] [place], [place] [address] Assigned PCP 07/01/22 07/07/22 Porsha Michaels APRN RN REGISTRY [address] [place] [address] Assigned Heart and Vascular Provider 07/01/22 07/07/22 Laurel Velasquez MD [address] [place] [address] Assigned Heart and Vascular Provider 07/08/22 08/04/22 Shahida Sutton APRN RN REGISTRY Assigned PCP 07/08/22 09/08/22 Marilin Montaño, RN REGISTRY [address] [place] [address] Assigned Heart and Vascular Provider 08/05/22 Esha Dewitt MD [address] [facility] 36 [place], [place] [address] Gastroenterology 09/06/22 Heather Mosquera MD [address] [place] [address] Internal Medicine 09/06/22 Paula Reza MD [address] [place] [address] Assigned PCP 09/09/22 01/05/23 Esha Dewitt MD [address] [facility] 36 [place], [place] [address] Assigned Gastroenterology Provider 09/23/22 Valdo Escamilla PA-C [address] [facility] [address] [place], [place] [address] Assigned Neuroscience Provider 09/30/22 Nohelia Abarca PA-C [address] [place], [place] [address] Physician Cement Fittings Maker Gastroenterology 10/03/22 Heather Mosquera MD [address] [place], [place] [address] Assigned PCP 01/06/23 Fawad York MD [address] [place], [place] [address] Assigned Musculoskeletal Provider 04/27/23 06/25/23 documented as of this encounter
--- OUTSIDE RECORDS SUMMARY | 2023-09-18 13:54 | XMS_ITS | Encounter Summary ---
Author Organization [place] Address [address] [place] [address] Care Team Providers Care Obstetrics And Gynecology Professor Name Role Phone Mingo Aldana MD Primary Car e Provider Herman, Shahida Cummings APRN CAFE TEAM MEMBER Primary Care Provi ford Unavailable Herman, Shahida Cummings APRN CAFE TEAM MEMBER Unavailable Un available Herman, Shahida Cummings APRN CAFE TEAM MEMBER Unavailable Un available Carolynn Ramon RN Unavailable [phone] Augustine Callaway MD Unavailable Brady Lion MD Unavailable Un available Nima France-C Unavailable [phone] Camille Chandler PA-C Unavailable [phone] Anabela Barakat APRN CAFE TEAM MEMBER Unavailable Nima France-C Unavailable [phone] Basilio Morillo DO Unavailable [phone] Fawad York MD Unavailable [phone] Roopa Almonte MD Unavailable [phone] Augustine Callaway MD Unavailable Maryse Burton PA-C Unavailable Marquita Starkey MD Unavailable [phone] Roopa Almonte MD Unavailable [phone] Griffin Joshi MD Unavailable Rina Magallon RN Unavailable [phone] Paula Reza MD Primary Care Provider [phone] Griffin Joshi MD Unavailable Roopa Almonte MD Unavailable [phone] [facility] DO Unavailable Lydia Bernstein PA-C Unavailable Rosa Maria Love Unavailable [phone] Augustine Callaway MD Unavailable Paula Reza MD Unavailable Keerthi Miner APRN CAFE TEAM MEMBER Unavailable Herman, Shahida Cummings APRN CAFE TEAM MEMBER Unavailable Un available Porsha Michaels APRN CAFE TEAM MEMBER Unavailable [phone] Paula Reza MD Unavailable Herman, Shahida Cummings APRN CAFE TEAM MEMBER Unavailable Un available Daylin Ludwig Unavailable [phone] Laurel Velasquez MD Unavailable [phone] Daylin Ludwig Unavailable [phone] Paula Reza MD Unavailable Porsha Michaels APRN CAFE TEAM MEMBER Unavailable [phone] Laurel Velasquez MD Unavailable [phone] Herman, Shahida Cummings APRN CAFE TEAM MEMBER Unavailable Un available Marilin Montaño CAFE TEAM MEMBER Unavailable [phone] Esha Dewitt MD Unavailable [phone] Heather Mosquera MD Unavailable [phone] Paula Reza MD Unavailable Esha Dewitt MD Unavailable [phone] Valdo Escamilla PA-C Unavailable Nohelia Abarca PA-C Unavailable [phone] Heather Mosquera MD Unavailable [phone] Fawad York MD Unavailable [phone] Encounter Details Date Type Department Care Team (Late st Contact Info) Description 05/28/[address], [facility] [address] [place] [address] [place] Social History Tobacco Use Types Packs/Day Years Used Date Smoking Tobacco: Former Cigarettes 0.5 25 1 - 12/09/2006 Cigars Smokeless Tobacco: Never Comments:occasionally Alcohol [...] Out COVID-19 02/15/2020 02/15/2020 02/16/2020 2:32 PM 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 Rule Out COVID-19 01/05/2021 01/05/2021 01/06/2021 12:57 PM CDT ESBL 01/05/2021 01/05/2021 Rule Out COVID-19 06/30/2021 06/30/2021 07/01/2021 9:34 AM CDT Rule Out COVID-19 07/25/2021 07/25/2021 07/25/2021 8:02 PM CDT documented as of this encounter Care Teams Obstetrics And Gynecology Professor Relationship Specialty Start Date End Date Mingo Aldana MD PCP - General Family Practice 07/22/09 07/12/14 Shahida Sutton APRN CAFE TEAM MEMBER PCP - General Nurse Practitioner 08/17/14 08/04/21 Shahida Sutton APRN CAFE TEAM MEMBER PCP - Assigned PCP 07/12/14 05/07/18 Paula Reza MD [address] [facility] [address] [place], [place] [address] PCP - General Internal Medicine 08/05/21 Shahida Sutton APRN CAFE TEAM MEMBER Assigned PCP 07/12/14 09/30/21 Carolynn Ramon RN Personal Advocate & Liaison (PAL) 12/17/18 08/07/21 [place] [address] [place], [place] [address] Assigned Musculoskeletal Provider 12/26/19 08/21/20 Brady Lion MD Assigned Heart and Vascular Provider 12/26/19 08/14/20 Nima France PA-C [address] [place] [address] Assigned Surgical Provider 05/19/20 08/21/20 Camille Chandler PA-C [address] [place] [address] Assigned Neuroscience Provider 05/19/20 09/14/20 Anabela Barakat APRN CNP [address] [place] [address] Assigned Heart and Vascular Provider 08/15/20 08/05/21 Nima France PA-C [address] [facility] 450 [place] [address] Assigned Musculoskeletal Provider 08/22/20 11/13/20 [place] [address] [place], [place] [address] Assigned Musculoskeletal Provider 11/14/20 12/04/20 Fawad York MD [address] [place], [place] [address] Assigned Musculoskeletal Provider 12/05/20 02/05/21 Roopa Almonte MD [address] [facility] 200 [place], [place] [address] Endocrinology, Diabetes, and Metabolism 01/19/21 [place] [address] [facility] [address] [place] [address] Assigned Musculoskeletal Provider 02/06/21 09/16/21 Maryse Burton PA-C [address] [place] [address] Physician Growth Hacker Dermatology 04/14/21 Marquita Starkey MD [address] [facility] 200 [place], [place] [address] Internal Medicine 05/06/21 05/06/21 Roopa Almonte MD [address] [facility] [address] [place], [place] [address] Hospitalist Endocrinology, Diabetes, and Metabolism 05/30/21 Griffin Joshi MD [address] [place] [address] Cardiovascular Disease 07/25/21 Rina Magallon, RN Lead Wringer 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 07/29/21 07/11/22 Griffin Joshi MD [address] [place] [address] Assigned Heart and Vascular Provider 08/06/21 10/07/21 Roopa Almonte MD [address] [place] [address] 200 [place], [place] [address] Assigned Endocrinology Provider 09/10/21 [place] [address] [facility] [place] [address] Assigned Musculoskeletal Provider 09/17/21 10/14/21 Lydia Bernstein PA-C [address] [place] [address] Assigned PCP 10/01/21 10/21/21 Rosa Maria Love CHW Community Health Worker 10/06/21 [place] [address] [facility] [address] [place], [place] [address] Assigned Musculoskeletal Provider 10/15/21 04/26/23 Paula Reza MD [address] [place] [address] Assigned PCP 10/22/21 12/23/21 Keerthi Miner APRN CAFE TEAM MEMBER [address] [place] [address] Assigned Heart and Vascular Provider 10/08/21 02/10/22 Shahida Sutton APRN CAFE TEAM MEMBER Assigned PCP 12/24/21 03/24/22 Porsha Michaels APRN CAFE TEAM MEMBER [address] [place] [address] Assigned Heart and Vascular Provider 02/11/22 05/12/22 Paula Reza MD [address] [place] [address] Assigned PCP 03/25/22 04/07/22 Shahida Sutton APRN CAFE TEAM MEMBER [address] [place] [address] Assigned PCP 04/08/22 06/30/22 Daylin Ludwig EP [facility] [address] [place] [address] Cardiac Rehabilitation Therapist 05/16/23 Laurel Velasquez MD [address] [place] [address] Assigned Heart and Vascular Provider 05/13/22 06/30/22 Daylin Ludwig EP [facility] [address] [place] [address] Cardiac Rehabilitation Therapist 06/08/22 06/09/23 Paula Reza MD [address] [place] [address] Assigned PCP 07/01/22 07/07/22 Porsha Michaels APRN CAFE TEAM MEMBER [address] [place] [address] Assigned Heart and Vascular Provider 07/01/22 07/07/22 Laurel Velasquez MD [address] [place] [address] Assigned Heart and Vascular Provider 07/08/22 08/04/22 Shahida Sutton APRN CAFE TEAM MEMBER Assigned PCP 07/08/22 09/08/22 Marilin Montaño, CAFE TEAM MEMBER [address] [place] [address] Assigned Heart and Vascular Provider 08/05/22 Esha Dewitt MD [address] [place] [address] 36 [place], [place] [address] Gastroenterology 09/06/22 Heather Mosquera MD [address] [place] [address] Internal Medicine 09/06/22 Paula Reza MD [address] [place] [address] Assigned PCP 09/09/22 01/05/23 Esha Dewitt MD [address] [facility] 36 [place] [address] Assigned Gastroenterology Provider 09/23/22 Valdo Escamilla PA-C [address] [facility] [address] [place] [address] Assigned Neuroscience Provider 09/30/22 Nohelia Abarca PA-C [address] [place] [address] Physician Growth Hacker Gastroenterology 10/03/22 Heather Mosquera MD [address]45 [facility] 150 [place] [address] Assigned PCP 01/06/23 Fawad York MD 9[address] [place] [address] Assigned Musculoskeletal Provider 04/27/23 06/25/23 documented as of this encounter
--- OUTSIDE RECORDS SUMMARY | 2023-09-18 13:54 | XMS_ITS | Encounter Summary ---
Author Organization [place] Address [address] [place] [address] Care Team Providers Care Reserve Operator Name Role Phone Mingo Aldana MD Primary Car e Provider Herman, Shahida Cummings APRN REIKI PRACTITIONER Primary Care Provi ford Unavailable Herman, Shahida Cummings APRN REIKI PRACTITIONER Unavailable Un available Herman, Shahida Cummings APRN REIKI PRACTITIONER Unavailable Un available Carolynn Ramon RN Unavailable [phone] Augustine Callaway MD Unavailable Brady Lion MD Unavailable Un available Nima France-C Unavailable [phone] Camille Chandler PA-C Unavailable [phone] Anabela Barakat APRN REIKI PRACTITIONER Unavailable Nima France-C Unavailable [phone] Basilio Morillo DO Unavailable Fawad York MD Unavailable [phone] Roopa Almonte MD Unavailable [phone] Augustine Callaway MD Unavailable Maryse Burton PA-C Unavailable Marquita Starkey MD Unavailable [phone] Roopa Almonte MD Unavailable [phone] Griffin Joshi MD Unavailable Rina Magallon RN Unavailable [phone] Paula Reza MD Primary Care Provider [phone] Griffin Joshi MD Unavailable Roopa Almonte MD Unavailable [phone] [facility] islandBasilio win DO Unavailable Lydia Bernstein PA-C Unavailable Rosa Maria Love Unavailable [phone] Augustine Callaway MD Unavailable Paula Reza MD Unavailable Keerthi Miner APRN REIKI PRACTITIONER Unavailable Herman, Shahida Cummings APRN REIKI PRACTITIONER Unavailable Un available Porsha Michaels APRN REIKI PRACTITIONER Unavailable [phone] Paula Reza MD Unavailable Herman, Shahida Cummings APRN REIKI PRACTITIONER Unavailable Un available Daylin Ludwig Unavailable [phone] Laurel Velasquez MD Unavailable [phone] Daylin Ludwig Unavailable [phone] Paula Reza MD Unavailable Porsha Michaels APRN REIKI PRACTITIONER Unavailable [phone] Laurel Velasquez MD Unavailable [phone] Herman, Shahida Cummings APRN REIKI PRACTITIONER Unavailable Un available Marilin Montaño REIKI PRACTITIONER Unavailable [phone] Esha Dewitt MD Unavailable [phone] Heather Mosquera MD Unavailable Paula Reza MD Unavailable Esha Dewitt MD Unavailable [phone] AyseValdo carbera Deo PA-C Unavailable Nohelia Abarca PA-C Unavailable [phone] Heather Mosquera MD Unavailable Fawad York MD Unavailable [phone] Reason for Visit * Reason Onset Date Comments MyChart Communication 04/17/[address] ress test Encounter Details Date Type Department Care Team (Late st Contact Info) Description 04/17/2012 MyC Medical Advice [address], [address] [place] [address] Mingo Aldana MD [facility] [address] [place] [address] MyChart Communication (nuclear stress test) Social History Tobacco Use Types Packs/Day Years [...] Out COVID-19 02/15/2020 02/15/2020 02/16/2020 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 Rule Out COVID-19 01/05/2021 01/05/2021 01/06/2021 12:57 PM CDT ESBL 01/05/2021 01/05/2021 Rule Out COVID-19 06/30/2021 06/30/2021 07/01/2021 9:34 AM CDT Rule Out COVID-19 07/25/2021 07/25/2021 07/25/2021 8:02 PM CDT documented as of this encounter Care Teams Reserve Operator Relationship Specialty Start Date End Date Katya Jasonyaneth Bimal Celestin MD PCP - General Family Practice 07/22/09 07/12/14 Shahida Sutton APRN REIKI PRACTITIONER PCP - General Nurse Practitioner 08/17/14 08/04/21 Shahida Sutton APRN REIKI PRACTITIONER PCP - Assigned PCP 07/12/14 05/07/18 Paula Reza MD [address] [facility] [address] [place], [place] [address] PCP - General Internal Medicine 08/05/21 Shahida Sutton APRN REIKI PRACTITIONER Assigned PCP 07/12/14 09/30/21 Carolynn Ramon, KASIE Personal Advocate & Liaison (PAL) 12/17/18 08/07/21 [place] [address] [place] [address] Assigned Musculoskeletal Provider 12/26/19 08/21/20 Brady Lion MD Assigned Heart and Vascular Provider 12/26/19 08/14/20 Nima France PA-C [address] [place] [address] Assigned Surgical Provider 05/19/20 08/21/20 Camille Chandler PA-C [address] [facility] [address] [place], [place] [address] Assigned Neuroscience Provider 05/19/20 09/14/20 Anabela Barakat APRN REIKI PRACTITIONER 1700 [place] [address] Assigned Heart and Vascular Provider 08/15/20 08/05/21 Nima France PA-C [address]45 [facility] 450 [place] [address] Assigned Musculoskeletal Provider 08/22/20 11/13/20 [place] [address] [place] [address] Assigned Musculoskeletal Provider 11/14/20 12/04/20 Fawad York MD [address] [place] [address] Assigned Musculoskeletal Provider 12/05/20 02/05/21 Roopa Almonte MD [address] [facility] 200 [place] [address] Endocrinology, Diabetes, and Metabolism 01/19/21 [place] [address] [facility] [address] [place], [place] [address] Assigned Musculoskeletal Provider 02/06/21 09/16/21 Maryse Burton PA-C [address] [place] [address] Physician Soliciting Freight Agent Dermatology 04/14/21 Marquita Starkey MD [address] [place] [address] Internal Medicine 05/06/21 05/06/21 Roopa Almonte MD [address] [facility] [address] [place] [address] Hospitalist Endocrinology, Diabetes, and Metabolism 05/30/21 Griffin Joshi MD [address] [place] [address] Cardiovascular Disease 07/25/21 Rina Magallon RN Lead Diesel Technician Mechanic 07/29/21 07/11/22 Griffin Joshi MD [address] [place] [address] Assigned Heart and Vascular Provider 08/06/21 10/07/21 Roopa Almonte MD [address] [place], [place] [address] Assigned Endocrinology Provider 09/10/21 [place] [address] [facility] [place] [address] Assigned Musculoskeletal Provider 09/17/21 10/14/21 Lydia Bernstein PA-C [address] [place] [id number] Assigned PCP 10/01/21 10/21/21 Kate Rosa Maria, W Community Health Worker 10/06/21 [place] [address] [place] [address] Assigned Musculoskeletal Provider 10/15/21 04/26/23 Paula Reza MD [address] [place] [address] Assigned PCP 10/22/21 12/23/21 Keerthi Miner APRN REIKI PRACTITIONER [address] [place] [address] Assigned Heart and Vascular Provider 10/08/21 02/10/22 Shahida Sutton APRN REIKI PRACTITIONER Assigned PCP 12/24/21 03/24/22 Porsha Michaels APRN REIKI PRACTITIONER [address] [place] [address] Assigned Heart and Vascular Provider 02/11/22 05/12/22 Paula Reza MD [address] [place] [address] Assigned PCP 03/25/22 04/07/22 Shahida Sutton APRN REIKI PRACTITIONER [address] [place] [address] Assigned PCP 04/08/22 06/30/22 Daylin Ludwig EP [facility] [address] [place] [address] Cardiac Rehabilitation Therapist 05/16/23 Laurel Velasquez MD [address] [place] [address] Assigned Heart and Vascular Provider 05/13/22 06/30/22 Daylin Ludwig EP [facility] [address] [place] [address] Cardiac Rehabilitation Therapist 06/08/22 06/09/23 Paula Reza MD [address] [facility] [address] [place], [place] [address] Assigned PCP 07/01/22 07/07/22 Porsha Michaels APRN REIKI PRACTITIONER [address] [place] [address] Assigned Heart and Vascular Provider 07/01/22 07/07/22 Laurel Velasquez MD [address] [place] [address] Assigned Heart and Vascular Provider 07/08/22 08/04/22 Shahida Sutton, CUFF FOLDER REIKI PRACTITIONER Assigned PCP 07/08/22 09/08/22 Marilin Montaño, REIKI PRACTITIONER [address] [place] [address] Assigned Heart and Vascular Provider 08/05/22 Esha Dewitt MD [address] [facility] 36 [place], [place] [address] Gastroenterology 09/06/22 Heather Mosquera MD [address] [place] [address] Internal Medicine 09/06/22 Paula Reza MD [address] [facility] [address] [place] [address] Assigned PCP 09/09/22 01/05/23 Esha Dewitt MD [address] [facility] 36 [place], [place] [address] Assigned Gastroenterology Provider 09/23/22 Valdo Escamilla PA-C [address] [facility] [address] [place] [id number] Assigned Neuroscience Provider 09/30/22 Nohelia Abarca PA-C [address] [place], [place] [address] Physician Soliciting Freight Agent Gastroenterology 10/03/22 Heather Mosquera MD [address] [place] [address] Assigned PCP 01/06/23 Fawad York MD [address] [place], [place] [address] Assigned Musculoskeletal Provider 04/27/23 06/25/23 documented as of this encounter
--- OUTSIDE RECORDS SUMMARY | 2023-09-18 13:54 | XMS_ITS | Encounter Summary ---
Author Organization [facility] Address [address] [place] [address] Care Team Providers Care Dialysis Rn Name Role Phone Mingo Aldana MD Primary Car e Provider Herman, Shahida Cummings APRN SOIL ENGINEER Primary Care Provi ford Unavailable Herman, Shahida Cummings APRN SOIL ENGINEER Unavailable Un available Herman, Shahida Cummings APRN SOIL ENGINEER Unavailable Un available Carolynn Ramon RN Unavailable [phone] Augustine Callaway MD Unavailable Brady Lion MD Unavailable Un available Nima France-C Unavailable [phone] Camille Chandler PA-C Unavailable [phone] Anabela Barakat APRN SOIL ENGINEER Unavailable Nima France-C Unavailable [phone] Basilio Morillo DO Unavailable [phone] Fawad York MD Unavailable [phone] Roopa Almonte MD Unavailable [phone] Augustine Callaway MD Unavailable Maryse Burton PA-C Unavailable Marquita Starkey MD Unavailable [phone] Roopa Almonte MD Unavailable [phone] Griffin Joshi MD Unavailable Rina Magallon RN Unavailable [phone] Paula Reza MD Primary Care Provider [phone] Griffin Joshi MD Unavailable Roopa Almonte MD Unavailable [phone] [facility] hospital[facility]ilio win DO Unavailable Lydia Bernstein PA-C Unavailable Rosa Maria Love Unavailable [phone] Augustine Callaway MD Unavailable Paula Reza MD Unavailable Keerthi Miner APRN SOIL ENGINEER Unavailable Herman, Shahida Cummings APRN SOIL ENGINEER Unavailable Un available Porsha Michaels APRN SOIL ENGINEER Unavailable [phone] Paula Reza MD Unavailable Herman, Shahida Cummings APRN SOIL ENGINEER Unavailable Un available Daylin Ludwig Unavailable [phone] Laurel Velasquez MD Unavailable [phone] Daylin Ludwig Unavailable [phone] Paula Reza MD Unavailable Porsha Michaels APRN SOIL ENGINEER Unavailable [phone] Laurel Velasquez MD Unavailable [phone] Herman, Shahida Cummings APRN SOIL ENGINEER Unavailable Un available Marilin Montaño SOIL ENGINEER Unavailable [phone] Esha Dewitt MD Unavailable [phone] Heather Mosquera MD Unavailable Paula Reza MD Unavailable Esha Dewitt MD Unavailable [phone] Valdo Escamilla PA-C Unavailable Nohelia Abarca PA-C Unavailable [phone] Heather Mosquera MD Unavailable Fawad York MD Unavailable Encounter Details Date Type Department Care Team (Late st Contact Info) Description 11/13/2011 [facility] [address] [address] Mingo Aldana MD [facility] [address] [place] [address] Social History Tobacco Use Types Packs/Day Years [...] encounter Miscellaneous Notes * Telephone Encounter - Kendal Ramirez - 11/13/2011 1:43 PM CDT See PushSpring message documented in this encounter Plan of Treatment Not on file documented as of this encounter Visit Diagnoses Not on filedocumented in this encounter Additional Health Concerns Infection Onset Date Last Indicated Resolved Time Rule Out COVID-19 02/15/2020 02/15/2020 02/16/2020 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 Rule Out COVID-19 01/05/2021 01/05/2021 01/06/2021 12:57 PM CDT ESBL 01/05/2021 01/05/2021 Rule Out COVID-19 06/30/2021 06/30/2021 07/01/2021 9:34 AM CDT Rule Out COVID-19 07/25/2021 07/25/2021 07/25/2021 8:02 PM CDT documented as of this encounter Care Teams Dialysis Rn Relationship Specialty Start Date End Date Mingo Aldana MD PCP - General Family Practice 07/22/09 07/12/14 Shahida Sutton APRN SOIL ENGINEER PCP - General Nurse Practitioner 08/17/14 08/04/21 Shahida Sutton APRN SOIL ENGINEER PCP - Assigned PCP 07/12/14 05/07/18 Paula Reza MD [address] [place] [address] PCP - General Internal Medicine 08/05/21 Shahida Sutton APRN SOIL ENGINEER Assigned PCP 07/12/14 09/30/21 Carolynn Ramon, KASIE Personal Advocate & Liaison (PAL) 12/17/18 08/07/21 [place] [address] [place] [address] Assigned Musculoskeletal Provider 12/26/19 08/21/20 Brady Lion MD Assigned Heart and Vascular Provider 12/26/19 08/14/20 Nima France PA-C [address] [place] [address] Assigned Surgical Provider 05/19/20 08/21/20 Camille Chandler PA-C [address] [facility] [address] [place] [address] Assigned Neuroscience Provider 05/19/20 09/14/20 Anabela Barakat APRN SOIL ENGINEER [address] [place] [address] Assigned Heart and Vascular Provider 08/15/20 08/05/21 Nima France PA-C 6545 [facility] [address] [place] [address] Assigned Musculoskeletal Provider 08/22/20 11/13/20 [place] [address] [facility] [place] [address]29 Assigned Musculoskeletal Provider 11/14/20 12/04/20 Fawad [place] MD [address] [place], [place] [address] Assigned Musculoskeletal Provider 12/05/20 02/05/21 Roopa Almonte MD [address] [place] [address] Endocrinology, Diabetes, and Metabolism 01/19/21 [place] [address] [place] [address] Assigned Musculoskeletal Provider 02/06/21 09/16/21 Maryse Burton PA-C [address] [facility] [address] Physician Fibrous Wallboard Inspector Dermatology 04/14/21 Marquita Starkey MD [address] [facility] [address] [place], [place] [address] Internal Medicine 05/06/21 05/06/21 Roopa Almonte MD [address] [facility] 200 [place], [place] [address] Hospitalist Endocrinology, Diabetes, and Metabolism 05/30/21 Griffin Joshi MD [address] [place] [address] Cardiovascular Disease 07/25/21 Rina Magallon, RN Lead Bioinformatics Scientist 07/29/21 07/11/22 Griffin Joshi MD [address] [place] [address] Assigned Heart and Vascular Provider 08/06/21 10/07/21 Roopa Almonte MD [address] [place], [place] [address] Assigned Endocrinology Provider 09/10/21 [place] [address] [facility] [place] [address] Assigned Musculoskeletal Provider 09/17/21 10/14/21 Lydia Bernstein PA-C [address] [place] [address] Assigned PCP 10/01/21 10/21/21 Rosa Maria Love CHW Community Health Worker 10/06/21 [place] [address] [place] [address] Assigned Musculoskeletal Provider 10/15/21 04/26/23 Paula Reza MD [address] [place], [place] [address] Assigned PCP 10/22/21 12/23/21 Keerthi Miner APRN SOIL ENGINEER [address] [place] [address] Assigned Heart and Vascular Provider 10/08/21 02/10/22 Shahida Sutton APRN SOIL ENGINEER Assigned PCP 12/24/21 03/24/22 Porsha Michaels APRN SOIL ENGINEER [address] [place] [address] Assigned Heart and Vascular Provider 02/11/22 05/12/22 Paula Reza MD [address] [place] [address] Assigned PCP 03/25/22 04/07/22 Shahida Sutton APRN SOIL ENGINEER [address] [place] [address] Assigned PCP 04/08/22 06/30/22 Daylin Ludwig EP [facility] [address] [place] [address] Cardiac Rehabilitation Therapist 05/16/23 Laurel Velasquez MD [address] [place] [address] Assigned Heart and Vascular Provider 05/13/22 06/30/22 Daylin Ludwig EP [facility] [address] [place] [address] Cardiac Rehabilitation Therapist 06/08/22 06/09/23 Paula Reza MD [address] [facility] 200 [place], [place] [address] Assigned PCP 07/01/22 07/07/22 Porsha Michaels APRN SOIL ENGINEER [address] [place] [address] Assigned Heart and Vascular Provider 07/01/22 07/07/22 Laurel Velasquez MD [address] [place] [address] Assigned Heart and Vascular Provider 07/08/22 08/04/22 Shahida Sutton APRN SOIL ENGINEER Assigned PCP 07/08/22 09/08/22 Marilin Montaño, SOIL ENGINEER [address] [place] [address] Assigned Heart and Vascular Provider 08/05/22 Esha Dewitt MD [address] [place] [address] Gastroenterology 09/06/22 Heather Mosquera MD 6545 [facility] 150 [place], [place] [address] Internal Medicine 09/06/22 Paula Reza MD [address] [place] [address] Assigned PCP 09/09/22 01/05/23 Esha Dewitt MD [address] [address] Assigned Gastroenterology Provider 09/23/22 Valdo Escamilla PA-C [address] [facility] 103 [place] [address] Assigned Neuroscience Provider 09/30/22 Nohelia Abarca PA-C [address] [place] [address] Physician Fibrous Wallboard Inspector Gastroenterology 10/03/22 Heather Mosquera MD 6545 [facility] 150 [place], [place] [address] Assigned PCP 01/06/23 Fawad [place] MD [address] [place], [place] [address] Assigned Musculoskeletal Provider 04/27/23 06/25/23 documented as of this encounter
--- OUTSIDE RECORDS SUMMARY | 2023-09-18 13:54 | XMS_ITS | Encounter Summary ---
Author Organization [facility] Address [address] [place] [address] Care Team Providers Care Napper Fixer Name Role Phone Mingo Aldana MD Primary Car e Provider Herman, Shahida Cummings APRN TURF FARM WORKER Primary Care Provi ford Unavailable Herman, Shahida Cummings APRN TURF FARM WORKER Unavailable Un available Herman, Shahida Cummings APRN TURF FARM WORKER Unavailable Un available Carolynn Ramon RN Unavailable [phone] Augustine Callaway MD Unavailable Brady Lion MD Unavailable Un available Nima France-C Unavailable [phone] Camille Chandler PA-C Unavailable [phone] Anabela Barakat APRN TURF FARM WORKER Unavailable Nima France-C Unavailable [phone] Basilio Morillo DO Unavailable [phone] Fawad [place] MD Unavailable [phone] Roopa Almonte MD Unavailable [phone] Augustine Callaway MD Unavailable Maryse Burton PA-C Unavailable Marquita Starkey MD Unavailable [phone] Roopa Almonte MD Unavailable [phone] Griffin Joshi MD Unavailable Rina Magallon RN Unavailable [phone] Paula Reza MD Primary Care Provider [phone] Griffin Joshi MD Unavailable Roopa Almonte MD Unavailable [phone] [facility] hospitalBasilio win DO Unavailable Lydia Bernstein PA-C Unavailable Rosa Maria Love Unavailable [phone] Augustine Callaway MD Unavailable Paula Reza MD Unavailable Keerthi Miner APRN TURF FARM WORKER Unavailable Herman, Shahida Cummings APRN TURF FARM WORKER Unavailable Un available Porsha Michaels APRN TURF FARM WORKER Unavailable [phone] Paula Reza MD Unavailable Herman, Shahida Cummings APRN TURF FARM WORKER Unavailable Un available Daylin Ludwig Unavailable [phone] Laurel Velasquez MD Unavailable [phone] Daylin Ludwig Unavailable [phone] Paula Reza MD Unavailable Porsha Michaels APRN TURF FARM WORKER Unavailable [phone] Laurel Velasquez MD Unavailable [phone] Herman, Shahida Cummings APRN TURF FARM WORKER Unavailable Un available Marilin Montaño TURF FARM WORKER Unavailable [phone] Esha Dewitt MD Unavailable [phone] Heather Mosquera MD Unavailable [phone] Paula Reza MD Unavailable Esha Dewitt MD Unavailable [phone] Valdo Escamilla PA-C Unavailable Nohelia Abarca PA-C Unavailable [phone] Heather Mosquera MD Unavailable [phone] Fawad [place] MD Unavailable [phone] Encounter Details Date Type Department Care Team (Late st Contact Info) Description 06/10/2010 [facility] [id number] [place] [address] [place] [id number] [place] [address] Social History Tobacco Use Types Packs/Day [...] Out COVID-19 02/15/2020 02/15/2020 02/16/2020 2:32 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 Rule Out COVID-19 01/05/2021 01/05/2021 01/06/2021 12:57 PM CDT ESBL 01/05/2021 01/05/2021 Rule Out COVID-19 06/30/2021 06/30/2021 07/01/2021 9:34 AM CDT Rule Out COVID-19 07/25/2021 07/25/2021 07/25/2021 8:02 PM CDT documented as of this encounter Care Teams Napper Fixer Relationship Specialty Start Date End Date Mingo Aldana MD PCP - General Family Practice 07/22/09 07/12/14 Shahida Sutton APRN TURF FARM WORKER PCP - General Nurse Practitioner 08/17/14 08/04/21 Shahida Sutotn APRN TURF FARM WORKER PCP - Assigned PCP 07/12/14 05/07/18 Paula Reza MD [address] [place], [place] [address] PCP - General Internal Medicine 08/05/21 Shahida Sutton APRN TURF FARM WORKER Assigned PCP 07/12/14 09/30/21 Carolynn Ramon, KASIE Personal Advocate & Liaison (PAL) 12/17/18 08/07/21 [place] [address] [place], [place] [address] Assigned Musculoskeletal Provider 12/26/19 08/21/20 Brady Lion MD Assigned Heart and Vascular Provider 12/26/19 08/14/20 Nima France PA-C [address] [place] [address] Assigned Surgical Provider 05/19/20 08/21/20 Camille Chandler PA-C [address] [place] [address] Assigned Neuroscience Provider 05/19/20 09/14/20 Anabela Barakat APRN CNP [address]00 [place] [address] Assigned Heart and Vascular Provider 08/15/20 08/05/21 Nima France PA-C 6545 [facility] 450 [place] [address] Assigned Musculoskeletal Provider 08/22/20 11/13/20 [place] [address] [place] [address] Assigned Musculoskeletal Provider 11/14/20 12/04/20 Fawad [place] MD [address] [place] [address] Assigned Musculoskeletal Provider 12/05/20 02/05/21 Roopa Almonte MD [address] [facility] 200 [place] [address] Endocrinology, Diabetes, and Metabolism 01/19/21 [place] [address] [facility] 300 [place] [address] Assigned Musculoskeletal Provider 02/06/21 09/16/21 Maryse Burton PA-C [address] [place] [address] Physician Diesel Mechanic Apprentice Dermatology 04/14/21 Marquita Starkey MD [address] [facility] 200 [place] [address] Internal Medicine 05/06/21 05/06/21 Roopa Almonte MD [address] [facility] 200 [place] [address] Hospitalist Endocrinology, Diabetes, and Metabolism 05/30/21 Griffin Joshi MD [address] [place] [address] Cardiovascular Disease 07/25/21 Rina Magallon, RN Lead Quality Assurance Tech 07/29/21 07/11/22 Griffin Joshi MD [address] [place] [address] Assigned Heart and Vascular Provider 08/06/21 10/07/21 Roopa Almonte MD [address] [facility] [address] [place], [place] [address] Assigned Endocrinology Provider 09/10/21 [place] [address] [facility] [place] [address] Assigned Musculoskeletal Provider 09/17/21 10/14/21 Lydia Bernstein PA-C [address] [place] [address] Assigned PCP 10/01/21 10/21/21 Rosa Maria Love CHW Community Health Worker 10/06/21 [place] [address] [place] [address] Assigned Musculoskeletal Provider 10/15/21 04/26/23 Paula Reza MD [address] [place] [address] Assigned PCP 10/22/21 12/23/21 Keerthi Miner APRN TURF FARM WORKER [address] [place] [address] Assigned Heart and Vascular Provider 10/08/21 02/10/22 Shahida Sutton APRN TURF FARM WORKER Assigned PCP 12/24/21 03/24/22 Porsha Michaels APRN TURF FARM WORKER [address] [place] [address] Assigned Heart and Vascular Provider 02/11/22 05/12/22 Paula Reza MD [address] [place] [address] Assigned PCP 03/25/22 04/07/22 Shahida Sutton APRN TURF FARM WORKER [address] [place] [address] Assigned PCP 04/08/22 06/30/22 Daylin Ludwig EP [facility] [address] [place] [address] Cardiac Rehabilitation Therapist 05/16/23 Laurel Velasquez MD [address] [place] [address] Assigned Heart and Vascular Provider 05/13/22 06/30/22 Daylin Ludwig EP [facility] [address] [place] [address] Cardiac Rehabilitation Therapist 06/08/22 06/09/23 Paula Reza MD [address] [facility] [address] [place], [place] [address] Assigned PCP 07/01/22 07/07/22 Porsha Michaels APRN TURF FARM WORKER [address] [place] [address] Assigned Heart and Vascular Provider 07/01/22 07/07/22 Laurel Velasquez MD [address] [place] [address] Assigned Heart and Vascular Provider 07/08/22 08/04/22 Shahida Sutton APRN TURF FARM WORKER Assigned PCP 07/08/22 09/08/22 Marilin Montaño, TURF FARM WORKER [address] [place] [address] Assigned Heart and Vascular Provider 08/05/22 Esha Dewitt MD 420 [facility] 36 [place], [place] [address] Gastroenterology 09/06/22 Heather Mosquera MD [address] [place] [address] Internal Medicine 09/06/22 Paula Reza MD [address] [place] [address] Assigned PCP 09/09/22 01/05/23 Esha Dewitt MD 420 [facility] 36 [place], [place] [address] Assigned Gastroenterology Provider 09/23/22 Valdo Escamilla PA-C [address] [facility] [address] [place], [place] [address] Assigned Neuroscience Provider 09/30/22 Nohelia Abarca PA-C [address] [place], [place] [address] Physician Diesel Mechanic Apprentice Gastroenterology 10/03/22 Heather Mosquera MD [address] [place], [place] [address] Assigned PCP 01/06/23 Fawad [place] MD [address] [place], [place] [address] Assigned Musculoskeletal Provider 04/27/23 06/25/23 documented as of this encounter
--- OUTSIDE RECORDS SUMMARY | 2023-09-18 13:54 | XMS_ITS | Encounter Summary ---
Author Organization [facility] Address [address] [place] [address] Care Team Providers Care Calculating Machine Mechanic Name Role Phone Mingo Aldana MD Primary Car e Provider Herman, Shahida Cummings APRN SUPERVISOR FILTRATION Primary Care Provi ford Unavailable Herman, Shahida Cummings APRN SUPERVISOR FILTRATION Unavailable Un available Herman, Shahida Cummings APRN SUPERVISOR FILTRATION Unavailable Un available Carolynn Ramon RN Unavailable [phone] Augustine Callaway MD Unavailable Brady Lion MD Unavailable Un available Nima France-C Unavailable [phone] Camille Chandler PA-C Unavailable [phone] Anabela Barakat APRN SUPERVISOR FILTRATION Unavailable Nima France-C Unavailable [phone] Basilio Morillo DO Unavailable [phone] Fawad York MD Unavailable [phone] Roopa Almonte MD Unavailable [phone] Augustine Callaway MD Unavailable Maryse Burton PA-C Unavailable Marquita Starkey MD Unavailable [phone] Roopa Almonte MD Unavailable [phone] Griffin Joshi MD Unavailable Rina Magallon RN Unavailable [phone] Paula Reza MD Primary Care Provider [phone] Griffin Joshi MD Unavailable Roopa Almonte MD Unavailable [phone] [facility] win DO Unavailable Lydia Bernstein PA-C Unavailable Rosa Maria Love Unavailable [phone] Augustine Callaway MD Unavailable Paula Reza MD Unavailable Keerthi Miner APRN SUPERVISOR FILTRATION Unavailable Herman, Shahida Cummings APRN SUPERVISOR FILTRATION Unavailable Un available Porsha Michaels APRN SUPERVISOR FILTRATION Unavailable [phone] Paula Reza MD Unavailable Herman, Shahida Cummings APRN SUPERVISOR FILTRATION Unavailable Un available Daylin Ludwig Unavailable [phone] Laurel Velasquez MD Unavailable [phone] Daylin Ludwig Unavailable [phone] Paula Reza MD Unavailable Porsha Michaels APRN SUPERVISOR FILTRATION Unavailable [phone] Laurel Velasquez MD Unavailable [phone] Herman, Shahida Cummings APRN SUPERVISOR FILTRATION Unavailable Un available Marilin Montaño SUPERVISOR FILTRATION Unavailable [phone] Esha Dewitt MD Unavailable [phone] Heather Mosquera MD Unavailable Paula Reza MD Unavailable Esha Dewitt MD Unavailable [phone] Valdo Escamilla PA-C Unavailable [phone] Nohelia Abarca PA-C Unavailable [phone] Heather Mosquera MD Unavailable Fawad York MD Unavailable [phone] Encounter Details Date Type Department Care Team (Late st Contact Info) Description 09/05/[address] [address] Maximiliano Herrmann Social History Tobacco Use Types [...] Out COVID-19 02/15/2020 02/15/2020 02/16/2020 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 Rule Out COVID-19 01/05/2021 01/05/2021 01/06/2021 12:57 PM CDT ESBL 01/05/2021 01/05/2021 Rule Out COVID-19 06/30/2021 06/30/2021 07/01/2021 9:34 AM CDT Rule Out COVID-19 07/25/2021 07/25/2021 07/25/2021 8:02 PM CDT documented as of this encounter Care Teams Calculating Machine Mechanic Relationship Specialty Start Date End Date Mingo Aldana MD PCP - General Family Practice 07/22/09 07/12/14 Shahida Sutton APRN SUPERVISOR FILTRATION PCP - General Nurse Practitioner 08/17/14 08/04/21 Shahida Sutton APRN SUPERVISOR FILTRATION PCP - Assigned PCP 07/12/14 05/07/18 Paula Reza MD [address] [facility] [address] [place] [address] PCP - General Internal Medicine 08/05/21 Shahida Sutton APRN SUPERVISOR FILTRATION Assigned PCP 07/12/14 09/30/21 Carolynn Ramon RN Personal Advocate & Liaison (PAL) 12/17/18 08/07/21 [place] [address] [address] [place] [address] Assigned Musculoskeletal Provider 12/26/19 08/21/20 Brady Lion MD Assigned Heart and Vascular Provider 12/26/19 08/14/20 Nima France PA-C [address] [place] [address] Assigned Surgical Provider 05/19/20 08/21/20 Camille Chandler PA-C [address] [place] [address] Assigned Neuroscience Provider 05/19/20 09/14/20 Anabela Barakat APRN CNP [address] [place] [address] Assigned Heart and Vascular Provider 08/15/20 08/05/21 Nima France PA-C [address] [facility] [address] [place] [address] Assigned Musculoskeletal Provider 08/22/20 11/13/20 [place] [address] [facility] [place], [place] [address] Assigned Musculoskeletal Provider 11/14/20 12/04/20 Fawad York MD [address] [place], [place] [address] Assigned Musculoskeletal Provider 12/05/20 02/05/21 Roopa Almonte MD [address] [facility] [address] [place], [place] [address] Endocrinology, Diabetes, and Metabolism 01/19/21 [place] [address] [facility] [address] [place] [address] Assigned Musculoskeletal Provider 02/06/21 09/16/21 Maryse Burton PA-C [address] [place] [address] Physician Model Maker Apprentice Dermatology 04/14/21 Marquita Starkey MD [address] [facility] [address] [place], [place] [address] Internal Medicine 05/06/21 05/06/21 Roopa Almonte MD [address] [facility] [address] [place] [address] Hospitalist Endocrinology, Diabetes, and Metabolism 05/30/21 Griffin Joshi MD [address] [place] [address] Cardiovascular Disease 07/25/21 Rina Magallon, RN Lead Pass Worker 07/29/21 07/11/22 Griffin Joshi [place] [address] [facility] [address] [place] [address] Assigned Heart and Vascular Provider 08/06/21 10/07/21 Roopa Almonte MD [address] [facility] [address] [place] [address] Assigned Endocrinology Provider 09/10/21 [place] [address] [facility] [place] [address] Assigned Musculoskeletal Provider 09/17/21 10/14/21 Lydia Bernstein PA-C [address] [place] [address] Assigned PCP 10/01/21 10/21/21 Rosa Maria Love CHW Community Health Worker 10/06/21 [place] [address] [facility] [address] [place] [address] Assigned Musculoskeletal Provider 10/15/21 04/26/23 Paula Reza MD [address] [place] [address] Assigned PCP 10/22/21 12/23/21 Keerthi Miner APRN SUPERVISOR FILTRATION [address] [place] [address] Assigned Heart and Vascular Provider 10/08/21 02/10/22 Shahida Sutton APRN SUPERVISOR FILTRATION Assigned PCP 12/24/21 03/24/22 Porsha Michaels APRN SUPERVISOR FILTRATION [address] [place] [address] Assigned Heart and Vascular Provider 02/11/22 05/12/22 Paula Reza MD [address] [place] [address] Assigned PCP 03/25/22 04/07/22 Shahida Sutton APRN SUPERVISOR FILTRATION [address] [place] [address] Assigned PCP 04/08/22 06/30/22 Daylin Ludwig EP [facility] [address] [place] [address] Cardiac Rehabilitation Therapist 05/16/23 Laurel Velasquez MD [address] [place] [address] Assigned Heart and Vascular Provider 05/13/22 06/30/22 Daylin Ludwig EP [facility] [address] [place], [place] [address] Cardiac Rehabilitation Therapist 06/08/22 06/09/23 Paula Reza MD [address] [place], [place] [address] Assigned PCP 07/01/22 07/07/22 Porsha Michaels APRN SUPERVISOR FILTRATION [address] [place] [address] Assigned Heart and Vascular Provider 07/01/22 07/07/22 Laurel Velasquez MD [address] [place] [address] Assigned Heart and Vascular Provider 07/08/22 08/04/22 Shahida Sutton APRN SUPERVISOR FILTRATION Assigned PCP 07/08/22 09/08/22 Marilin Montaño, SUPERVISOR FILTRATION [address] [place] [address] Assigned Heart and Vascular Provider 08/05/22 Esha Dewitt MD [address] [place] [address] [address] [place] [address] Gastroenterology 09/06/22 Heather Mosquera MD [address] [place] [address] Internal Medicine 09/06/22 Paula Reza MD [address] [place] [address] Assigned PCP 09/09/22 01/05/23 Esha Dewitt MD 420 [facility] [address] [place] [address] Assigned Gastroenterology Provider 09/23/22 Valdo Escamilla PA-C [address] [facility] [address] [place] [address] Assigned Neuroscience Provider 09/30/22 Nohelia Abarca PA-C [address] [place] [address] Physician Model Maker Apprentice Gastroenterology 10/03/22 Heather Mosquera MD 6545 [facility] 150 [place] [address] Assigned PCP 01/06/23 Fawad York MD [address] [place] [address] Assigned Musculoskeletal Provider 04/27/23 06/25/23 documented as of this encounter
--- OUTSIDE RECORDS SUMMARY | 2023-09-18 13:54 | XMS_ITS | Encounter Summary ---
Author Organization [facility] Address [address] [place] [address] Care Team Providers Care Cylinder Honer Name Role Phone Mingo Aldana MD Primary Car e Provider Herman, Shahida Cummings APRN DRY BOX TENDER Primary Care Provi ford Unavailable Herman, Shahida Cummings APRN DRY BOX TENDER Unavailable Un available Herman, Shahida Cummings APRN DRY BOX TENDER Unavailable Un available Carolynn Ramon RN Unavailable [phone] Augustine Callaway MD Unavailable Brady Lion MD Unavailable Un available Nima France-C Unavailable [phone] Camille Chandler PA-C Unavailable [phone] Anabela Barakat APRN DRY BOX TENDER Unavailable Nima France-C Unavailable [phone] Basilio Morillo DO Unavailable Fawad York MD Unavailable [phone] Roopa Almonte MD Unavailable [phone] Augustine Callaway MD Unavailable Maryse Burton PA-C Unavailable Marquita Starkey MD Unavailable [phone] Roopa Almonte MD Unavailable [phone] Griffin Joshi MD Unavailable Rina Magallon RN Unavailable [phone] Paula Reza MD Primary Care Provider [phone] Griffin Joshi MD Unavailable Roopa Almonte MD Unavailable [phone] [facility] hospital[facility]ilio win DO Unavailable Lydia Bernstein PA-C Unavailable Rosa Maria Love Unavailable [phone] Augustine Callaway MD Unavailable Paula Reza MD Unavailable Keerthi Miner APRN DRY BOX TENDER Unavailable Herman, Shahida Cummings APRN DRY BOX TENDER Unavailable Un available Porsha Michaels APRN DRY BOX TENDER Unavailable [phone] Paula Reza MD Unavailable Herman, Shahida Cummings APRN DRY BOX TENDER Unavailable Un available Daylin Ludwig Unavailable [phone] Laurel Velasquez MD Unavailable [phone] Daylin Ludwig Unavailable [phone] Paula Reza MD Unavailable Porsha Michaels APRN DRY BOX TENDER Unavailable [phone] Laurel Velasquez MD Unavailable [phone] Herman, Shahida Cummings APRN DRY BOX TENDER Unavailable Un available Marilin Montaño DRY BOX TENDER Unavailable [phone] Esha Dewitt MD Unavailable [phone] Heather Mosquera MD Unavailable [phone] Paula Reza MD Unavailable Esha Dewitt MD Unavailable [phone] Valdo Escamilla PA-C Unavailable Nohelia Abarca PA-C Unavailable [phone] Heather Mosquera MD Unavailable [phone] Fawad York MD Unavailable Encounter Details Date Type Department Care Team (Late st Contact Info) Description 06/09/2010 [facility] [address] [place] [id number] [place]anner Borjas [place] [id number] [place] [address] Social History Tobacco Use Types Packs/Day [...] Out COVID-19 02/15/2020 02/15/2020 02/16/2020 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 Rule Out COVID-19 01/05/2021 01/05/2021 01/06/2021 12:57 PM CDT ESBL 01/05/2021 01/05/2021 Rule Out COVID-19 06/30/2021 06/30/2021 07/01/2021 9:34 AM CDT Rule Out COVID-19 07/25/2021 07/25/2021 07/25/2021 8:02 PM CDT documented as of this encounter Care Teams Cylinder Honer Relationship Specialty Start Date End Date Mingo Aldana MD PCP - General Family Practice 07/22/09 07/12/14 Shahida Sutton APRN DRY BOX TENDER PCP - General Nurse Practitioner 08/17/14 08/04/21 Shahida Sutton APRN DRY BOX TENDER PCP - Assigned PCP 07/12/14 05/07/18 Paula Reza MD [address] [place], [place] [address] PCP - General Internal Medicine 08/05/21 Shahida Sutton APRN DRY BOX TENDER Assigned PCP 07/12/14 09/30/21 Carolynn Ramon, KASIE Personal Advocate & Liaison (PAL) 12/17/18 08/07/21 [place] [address] [place], [place] [address] Assigned Musculoskeletal Provider 12/26/19 08/21/20 Brady Lion MD Assigned Heart and Vascular Provider 12/26/19 08/14/20 Nima France PA-C [address] [place] [address] Assigned Surgical Provider 05/19/20 08/21/20 Camille Chandler PA-C [address] [place] [address] Assigned Neuroscience Provider 05/19/20 09/14/20 Anabela Barakat APRN CNP [address] [place] [address] Assigned Heart and Vascular Provider 08/15/20 08/05/21 Nima France PA-C [address] [facility] 450 [place] [address] Assigned Musculoskeletal Provider 08/22/20 11/13/20 [place] [address] [place] [address] Assigned Musculoskeletal Provider 11/14/20 12/04/20 Fawad York MD [address] [place] [address] Assigned Musculoskeletal Provider 12/05/20 02/05/21 Roopa Almonte MD [address] [facility] [address] [place] [address] Endocrinology, Diabetes, and Metabolism 01/19/21 [place] [address] [facility] [address] [place] [address] Assigned Musculoskeletal Provider 02/06/21 09/16/21 Maryse Burton PA-C [address] [place] [address] Physician Chemical Educator Dermatology 04/14/21 Marquita Starkey MD [address] [facility] [address] [place] [address] Internal Medicine 05/06/21 05/06/21 Roopa Almonte MD [address] [facility] [address] [place] [address] Hospitalist Endocrinology, Diabetes, and Metabolism 05/30/21 Griffin Joshi MD [address] [place] [address] Cardiovascular Disease 07/25/21 Rina Magallon, RN Lead Overnight Associate 07/29/21 07/11/22 Griffin Joshi MD [address] [place] [address] Assigned Heart and Vascular Provider 08/06/21 10/07/21 Roopa Almonte MD [address] [facility] [address] [place], [place] [address] Assigned Endocrinology Provider 09/10/21 [place] [address] [facility] [place] [address] Assigned Musculoskeletal Provider 09/17/21 10/14/21 Lydia Bernstein PA-C [address] [place] [address] Assigned PCP 10/01/21 10/21/21 Rosa Maria oLve CHW Community Health Worker 10/06/21 [place] [address] [place] [address] Assigned Musculoskeletal Provider 10/15/21 04/26/23 Paula Reza MD [address] [place] [address] Assigned PCP 10/22/21 12/23/21 Keerthi Miner APRN DRY BOX TENDER [address] [place] [address] Assigned Heart and Vascular Provider 10/08/21 02/10/22 Shahida Sutton APRN DRY BOX TENDER Assigned PCP 12/24/21 03/24/22 Porsha Michaels APRN DRY BOX TENDER [address] [place] [address] Assigned Heart and Vascular Provider 02/11/22 05/12/22 Paula Reza MD [address] [place] [address] Assigned PCP 03/25/22 04/07/22 Shahida Sutton APRN DRY BOX TENDER [address] [place] [address] Assigned PCP 04/08/22 06/30/22 Daylin Ludwig EP [facility] [address] [place] [address] Cardiac Rehabilitation Therapist 05/16/23 Laurel Velasquez MD [address] [place] [address] Assigned Heart and Vascular Provider 05/13/22 06/30/22 Daylin Ludwig EP [facility] [address] [place] [address] Cardiac Rehabilitation Therapist 06/08/22 06/09/23 Paula Reza MD [address] [facility] [address] [place], [place] [address] Assigned PCP 07/01/22 07/07/22 Porsha Michaels APRN DRY BOX TENDER [address] [place] [address] Assigned Heart and Vascular Provider 07/01/22 07/07/22 Laurel Velasquez MD [address] [place] [address] Assigned Heart and Vascular Provider 07/08/22 08/04/22 Shahida Sutton APRN DRY BOX TENDER Assigned PCP 07/08/22 09/08/22 Marilin Montaño, DRY BOX TENDER [address] [place] [address] Assigned Heart and Vascular Provider 08/05/22 Esha Dewitt MD [address] [facility] [address] [place], [place] [address] Gastroenterology 09/06/22 Heather Mosquera MD [address] [place] [address] Internal Medicine 09/06/22 Paula Reza MD [address] [place] [address] Assigned PCP 09/09/22 01/05/23 Esha Dewitt MD [address] [facility] 36 [place], [place] [address] Assigned Gastroenterology Provider 09/23/22 Valdo Escamilla PA-C [address] [facility] [address] [place], [place] [address] Assigned Neuroscience Provider 09/30/22 Nohelia Abarca PA-C [address] [place], [place] [address] Physician Chemical Educator Gastroenterology 10/03/22 Heather Mosquera MD [address] [place], [place] [address] Assigned PCP 01/06/23 Fawad York MD [address] [place], [place] [address] Assigned Musculoskeletal Provider 04/27/23 06/25/23 documented as of this encounter
--- OUTSIDE RECORDS SUMMARY | 2023-09-18 13:54 | XMS_ITS | Encounter Summary ---
Author Organization [place] Address [address] [place] [address] Care Team Providers Care Granulator Operator Name Role Phone Mingo Aldana MD Primary Car e Provider Herman, Shahida Cummings APRN ACADEMIC COUNSELOR Primary Care Provi ford Unavailable Herman, Shahida Cummings APRN ACADEMIC COUNSELOR Unavailable Un available Herman, Shahida Cummings APRN ACADEMIC COUNSELOR Unavailable Un available Carolynn Ramon RN Unavailable [phone] Augustine Callaway MD Unavailable Brady Lion MD Unavailable Un available Nima France-C Unavailable [phone] Camille Chandler PA-C Unavailable [phone] Anabela Barakat APRN ACADEMIC COUNSELOR Unavailable Nima France-C Unavailable [phone] Basilio Morillo DO Unavailable Fawad York MD Unavailable [phone] Roopa Almonte MD Unavailable [phone] Augustine Callaway MD Unavailable Maryse Burton PA-C Unavailable Marquita Starkey MD Unavailable [phone] Roopa Almonte MD Unavailable [phone] Griffin Joshi MD Unavailable Rina Magallon RN Unavailable [phone] Paula Reza MD Primary Care Provider [phone] Griffin Joshi MD Unavailable Roopa Almonte MD Unavailable [phone] [facility] center[facility] DO Unavailable Lydia Bernstein PA-C Unavailable Rosa Maria Love Unavailable [phone] Augustine Callaway MD Unavailable Paula Reza MD Unavailable Keerthi Miner APRN ACADEMIC COUNSELOR Unavailable Herman, Shahida Cummings APRN ACADEMIC COUNSELOR Unavailable Un available Porsha Michaels APRN ACADEMIC COUNSELOR Unavailable [phone] Paula Reza MD Unavailable Herman, Shahida Cummings APRN ACADEMIC COUNSELOR Unavailable Un available Daylin Ludwig Unavailable [phone] Laurel Velasquez MD Unavailable [phone] Daylin Ludwig Unavailable [phone] Paula Reza MD Unavailable Porsha Michaels APRN ACADEMIC COUNSELOR Unavailable [phone] Laurel Velasquez MD Unavailable [phone] Herman, Shahida Cummings APRN ACADEMIC COUNSELOR Unavailable Un available Marilin Montaño ACADEMIC COUNSELOR Unavailable [phone] Esha Dewitt MD Unavailable [phone] Heather Mosquera MD Unavailable Paula Reza MD Unavailable Esha Dewitt MD Unavailable [phone] Valdo Escamilla PA-C Unavailable [phone] Nohelia Abarca PA-C Unavailable [phone] Heather Mosquera MD Unavailable Fawad York MD Unavailable [phone] Encounter Details Date Type Department Care Team (Late st Contact Info) Description 07/03/2011 MyC Medical Advice [address] [address] Mingo Aldana MD [facility] [address] [place] [address] Social History Tobacco Use Types [...] Out COVID-19 02/15/2020 02/15/2020 02/16/2020 2:32 PM 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 Rule Out COVID-19 01/05/2021 01/05/2021 01/06/2021 12:57 PM CDT ESBL 01/05/2021 01/05/2021 Rule Out COVID-19 06/30/2021 06/30/2021 07/01/2021 9:34 AM CDT Rule Out COVID-19 07/25/2021 07/25/2021 07/25/2021 8:02 PM CDT documented as of this encounter Care Teams Granulator Operator Relationship Specialty Start Date End Date Mingo Aldana MD PCP - General Family Practice 07/22/09 07/12/14 Shahida Sutton APRN ACADEMIC COUNSELOR PCP - General Nurse Practitioner 08/17/14 08/04/21 Shahida Sutton APRN ACADEMIC COUNSELOR PCP - Assigned PCP 07/12/14 05/07/18 Paula Reza MD [address] [place] [address] PCP - General Internal Medicine 08/05/21 Shahida Sutton APRN ACADEMIC COUNSELOR Assigned PCP 07/12/14 09/30/21 Carolynn Ramon, KASIE Personal Advocate & Liaison (PAL) 12/17/18 08/07/21 [place] [address] [place] [address] Assigned Musculoskeletal Provider 12/26/19 08/21/20 Brady Lion MD Assigned Heart and Vascular Provider 12/26/19 08/14/20 Nima France PA-C [address] [place] [address] Assigned Surgical Provider 05/19/20 08/21/20 Camille Chandler PA-C [address] [place] [address] Assigned Neuroscience Provider 05/19/20 09/14/20 Anabela Barakat APRN CNP [address] [place] [address] Assigned Heart and Vascular Provider 08/15/20 08/05/21 Nima France PA-C 6545 [facility] [address] [place] [address] Assigned Musculoskeletal Provider 08/22/20 11/13/20 [place] [address] [place], [place] 8[address]39 Assigned Musculoskeletal Provider 11/14/20 12/04/20 Fawad York MD [address] [place], [place] [address]295 Assigned Musculoskeletal Provider 12/05/20 02/05/21 Roopa Almonte MD [address] [facility] 200 [place] [address] Endocrinology, Diabetes, and Metabolism 01/19/21 [place] [address] [facility] 300 [place] [address] Assigned Musculoskeletal Provider 02/06/21 09/16/21 Maryse Burton PA-C [address] [place] [address] Physician Safety Council Director Dermatology 04/14/21 Marquita Starkey MD [address] [place] [address] Internal Medicine 05/06/21 05/06/21 Roopa Almonte MD [address] [facility] [address] [place] [address] Hospitalist Endocrinology, Diabetes, and Metabolism 05/30/21 Griffin Joshi MD [address] [place] [address] Cardiovascular Disease 07/25/21 Rina Magallon, RN Lead Data Entry Clerk 07/29/21 07/11/22 Griffin Joshi MD [address] [place] [id number] Assigned Heart and Vascular Provider 08/06/21 10/07/21 Roopa Almonte MD [address] [place] [address] 200 [place], [place] [address] Assigned Endocrinology Provider 09/10/21 [place] [address] [facility] [place] [address] Assigned Musculoskeletal Provider 09/17/21 10/14/21 Lydia Bernstein PA-C [address] [place] [id number] Assigned PCP 10/01/21 10/21/21 Rosa Maria Love CHW Community Health Worker 10/06/21 [place] [address] [place] [address] Assigned Musculoskeletal Provider 10/15/21 04/26/23 Paula Reza MD [address] [place] [address] Assigned PCP 10/22/21 12/23/21 Keerthi Miner APRN ACADEMIC COUNSELOR [address] [place] [address] Assigned Heart and Vascular Provider 10/08/21 02/10/22 Shahida Sutton APRN ACADEMIC COUNSELOR Assigned PCP 12/24/21 03/24/22 Porsha Michaels APRN ACADEMIC COUNSELOR [address] [place] [address] Assigned Heart and Vascular Provider 02/11/22 05/12/22 Paula Reza MD [address] [place] [address] Assigned PCP 03/25/22 04/07/22 Shahida Sutton APRN ACADEMIC COUNSELOR [address] [place] [address] Assigned PCP 04/08/22 06/30/22 Daylin Ludwig EP [facility] [address] [place] [address] Cardiac Rehabilitation Therapist 05/16/23 Laurel Velasquez MD [address] [place] [address] Assigned Heart and Vascular Provider 05/13/22 06/30/22 Daylin Ludwig EP [facility] [address] [place] [address] Cardiac Rehabilitation Therapist 06/08/22 06/09/23 Paula Reza MD [address] [facility] [address] [place], [place] [address] Assigned PCP 07/01/22 07/07/22 Porsha Michaels APRN ACADEMIC COUNSELOR [address] [place] [address] Assigned Heart and Vascular Provider 07/01/22 07/07/22 Laurel Velasquez MD [address] [place], [place] [address] Assigned Heart and Vascular Provider 07/08/22 08/04/22 Shahida Sutton APRN ACADEMIC COUNSELOR Assigned PCP 07/08/22 09/08/22 Marilin Montaño, ACADEMIC COUNSELOR [address] [place] [address] Assigned Heart and Vascular Provider 08/05/22 Esha Dewitt MD [address] [place] [address] [address] [place], [place] [address] Gastroenterology 09/06/22 Heather Moqsuera MD [address] [place] [address] Internal Medicine 09/06/22 Paula Reza MD [address] [facility] 200 [place] [address] Assigned PCP 09/09/22 01/05/23 Esha Dewitt MD [address] [facility] [address] [place], [place] [address] Assigned Gastroenterology Provider 09/23/22 Valdo Escamilla PA-C [address] [place] [address] Assigned Neuroscience Provider 09/30/22 Nohelia Abarca PA-C [address] [place] [address] Physician Safety Council Director Gastroenterology 10/03/22 Heather Mosquera MD 6545 [facility] A[address] 150 [place], [place] [address] Assigned PCP 01/06/23 Fawad York MD [address] [place], [place] [address] Assigned Musculoskeletal Provider 04/27/23 06/25/23 documented as of this encounter
--- OUTSIDE RECORDS SUMMARY | 2023-09-18 13:54 | XMS_ITS | Encounter Summary ---
Author Organization [place] Address [address] [place] [address] Care Team Providers Care Assisted Living Care Manager Name Role Phone Mingo Aldana MD Primary Car e Provider Herman, Shahida Cummings APRN HEARING DOG TRAINER Primary Care Provi ford Unavailable Herman, Shahida Cummings APRN HEARING DOG TRAINER Unavailable Un available Herman, Shahida Cummings APRN HEARING DOG TRAINER Unavailable Un available Carolynn Ramon RN Unavailable [phone] Augustine Callaway MD Unavailable Brady Lion MD Unavailable Un available Nima France-C Unavailable [phone] Camille Chandler PA-C Unavailable [phone] Anabela Barakat APRN HEARING DOG TRAINER Unavailable Nima France-C Unavailable [phone] Basilio Morillo DO Unavailable [phone] Fawad York MD Unavailable [phone] Roopa Almonte MD Unavailable [phone] Augustine Callaway MD Unavailable Maryse Burton PA-C Unavailable Marquita Starkey MD Unavailable [phone] Roopa Almonte MD Unavailable [phone] Griffin Joshi MD Unavailable Rina Magallon RN Unavailable [phone] Paula Reza MD Primary Care Provider [phone] Griffin Joshi MD Unavailable Roopa Almonte MD Unavailable [phone] [facility] DO Unavailable Lydia Bernstein PA-C Unavailable Rosa Maria Love Unavailable [phone] Augustine Callaway MD Unavailable Paula Reza MD Unavailable Keerthi Miner APRN HEARING DOG TRAINER Unavailable Herman, Shahida Cummings APRN HEARING DOG TRAINER Unavailable Un available Porsha Michaels APRN HEARING DOG TRAINER Unavailable [phone] Paula Reza MD Unavailable Herman, Shahida Cummings APRN HEARING DOG TRAINER Unavailable Un available Daylin Ludwig Unavailable [phone] Laurel Velasquez MD Unavailable [phone] Daylin Ludwig Unavailable [phone] Paula Reza MD Unavailable Porsha Michaels APRN HEARING DOG TRAINER Unavailable [phone] Laurel Velasquez MD Unavailable [phone] Herman, Shahida Cummings APRN HEARING DOG TRAINER Unavailable Un available Marilin Montaño HEARING DOG TRAINER Unavailable [phone] Esha Dewitt MD Unavailable [phone] Heather Mosquera MD Unavailable Paula Reza MD Unavailable Esha Dewitt MD Unavailable [phone] Valdo Escamilla PA-C Unavailable [phone] Nohelia Abarca PA-C Unavailable [phone] Heather Mosquera MD Unavailable Fawad York MD Unavailable [phone] Encounter Details Date Type Department Care Team (Late st Contact Info) Description 06/15/2010 [facility] [id number] [place] [id number] [place] [id number] [place] [address] Social History Tobacco Use Types Packs/Day [...] Out COVID-19 02/15/2020 02/15/2020 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/2020 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 Rule Out COVID-19 01/05/2021 01/05/2021 01/06/2021 12:57 PM CDT ESBL 01/05/2021 01/05/2021 Rule Out COVID-19 06/30/2021 06/30/2021 07/01/2021 9:34 AM CDT Rule Out COVID-19 07/25/2021 07/25/2021 07/25/2021 8:02 PM CDT documented as of this encounter Care Teams Assisted Living Care Manager Relationship Specialty Start Date End Date Mingo Aldana MD PCP - General Family Practice 07/22/09 07/12/14 Shahida Sutton APRN HEARING DOG TRAINER PCP - General Nurse Practitioner 08/17/14 08/04/21 Shahida Sutton APRN HEARING DOG TRAINER PCP - Assigned PCP 07/12/14 05/07/18 Paula Reza MD [address] [place], [place] [address] PCP - General Internal Medicine 08/05/21 Shahida Sutton APRN HEARING DOG TRAINER Assigned PCP 07/12/14 09/30/21 Carolynn Ramon, KASIE Personal Advocate & Liaison (PAL) 12/17/18 08/07/21 [place] [address] [place], [place] [address] Assigned Musculoskeletal Provider 12/26/19 08/21/20 Brady Lion MD Assigned Heart and Vascular Provider 12/26/19 08/14/20 Nima France PA-C [address] [place] [address] Assigned Surgical Provider 05/19/20 08/21/20 Camille Chandler PA-C [address] [place] [address] Assigned Neuroscience Provider 05/19/20 09/14/20 Anabela Barakat APRN CNP [address] [place] [address] Assigned Heart and Vascular Provider 08/15/20 08/05/21 Nima France PA-C 6545 [facility] 450 [place] [address] Assigned Musculoskeletal Provider 08/22/20 11/13/20 [place] [address] [place] [address] Assigned Musculoskeletal Provider 11/14/20 12/04/20 Fawad York MD [address] [place] [address] Assigned Musculoskeletal Provider 12/05/20 02/05/21 Roopa Almonte MD [address] [facility] 200 [place] [address] Endocrinology, Diabetes, and Metabolism 01/19/21 [place] [address] [facility] 300 [place] [address] Assigned Musculoskeletal Provider 02/06/21 09/16/21 Maryse Burton PA-C [address] [place] [address] Physician Auto Striper Dermatology 04/14/21 Marquita Starkey MD [address] [facility] 200 [place] [address] Internal Medicine 05/06/21 05/06/21 Roopa Almonte MD [address] [facility] 200 [place] [address] Hospitalist Endocrinology, Diabetes, and Metabolism 05/30/21 Griffin Joshi MD [address] [place] [address] Cardiovascular Disease 07/25/21 Rina Magallon, RN Lead Big Data Hadoop Developer 07/29/21 07/11/22 Griffin Joshi MD [address] [place] [id number] Assigned Heart and Vascular Provider 08/06/21 10/07/21 Roopa Almonte MD [address] [facility] 200 [place], [place] [address] Assigned Endocrinology Provider 09/10/21 [place] [address] [facility] [place] [address] Assigned Musculoskeletal Provider 09/17/21 10/14/21 Lydia Bernstein PA-C [address] [place] [address] Assigned PCP 10/01/21 10/21/21 Rosa Maria Love CHW Community Health Worker 10/06/21 [place] [address] [place] [address] Assigned Musculoskeletal Provider 10/15/21 04/26/23 Paula Reza MD [address] [place] [address] Assigned PCP 10/22/21 12/23/21 Keerthi Miner APRN HEARING DOG TRAINER [address] [place] [id number] Assigned Heart and Vascular Provider 10/08/21 02/10/22 Shahida Sutton APRN HEARING DOG TRAINER Assigned PCP 12/24/21 03/24/22 Porsha Michaels APRN HEARING DOG TRAINER [address] [place] [address] Assigned Heart and Vascular Provider 02/11/22 05/12/22 Paula Reza MD [address] [place] [address] Assigned PCP 03/25/22 04/07/22 Shahida Sutton APRN HEARING DOG TRAINER [address] [place] [address] Assigned PCP 04/08/22 06/30/22 Daylin Ludwig EP [facility] [address] [place] [address] Cardiac Rehabilitation Therapist 05/16/23 Laurel Velasquez MD [address] [place] [address] Assigned Heart and Vascular Provider 05/13/22 06/30/[address] [facility] [address] [place] [address] Cardiac Rehabilitation Therapist 06/08/22 06/09/23 Paula Reza MD [address] [facility] [address] [place], [place] [address] Assigned PCP 07/01/22 07/07/22 Porsha Michaels APRN HEARING DOG TRAINER [address] [place] [address] Assigned Heart and Vascular Provider 07/01/22 07/07/22 Laurel Velasquez MD [address] [place] [address] Assigned Heart and Vascular Provider 07/08/22 08/04/22 Shahida Sutton APRN HEARING DOG TRAINER Assigned PCP 07/08/22 09/08/22 Marilin Montaño, HEARING DOG TRAINER [address] [place] [address] Assigned Heart and Vascular Provider 08/05/22 Esha Dewitt MD 420 [facility] [address] [place], [place] [address] Gastroenterology 09/06/22 Heather Mosquera MD [address] [place] [address] Internal Medicine 09/06/22 Paula Reza MD [address] [place] [address] Assigned PCP 09/09/22 01/05/23 Esha Dewitt MD 420 [facility] 36 [place], [place] [address] Assigned Gastroenterology Provider 09/23/22 Valdo Escamilla PA-C [address] [facility] [address] [place], [place] [address] Assigned Neuroscience Provider 09/30/22 Nohelia Abarca PA-C [address] [place], [place] [address] Physician Auto Striper Gastroenterology 10/03/22 Heather Mosquera MD [address] [place], [place] [address] Assigned PCP 01/06/23 Fawad York MD [address] [place], [place] [address] Assigned Musculoskeletal Provider 04/27/23 06/25/23 documented as of this encounter
--- OUTSIDE RECORDS SUMMARY | 2023-09-18 13:54 | XMS_ITS | Encounter Summary ---
Author Organization [facility] Address [address] [place] [address] Care Team Providers Care Fourdrinier Wire Weaver Name Role Phone Mingo Aldana MD Primary Car e Provider Herman, Shahida Cummings APRN POTATO PEELER Primary Care Provi ford Unavailable Herman, Shahida Cummings APRN POTATO PEELER Unavailable Un available Herman, Shahida Cummings APRN POTATO PEELER Unavailable Un available Carolynn Ramon RN Unavailable [phone] Augustine Callaway MD Unavailable Brady Lion MD Unavailable Un available Nima France-C Unavailable [phone] Camille Chandler PA-C Unavailable [phone] Anabela Barakat APRN POTATO PEELER Unavailable Nima France-C Unavailable [phone] Basilio Morillo DO Unavailable Fawad York MD Unavailable [phone] Roopa Almonte MD Unavailable [phone] Augustine Callaway MD Unavailable Maryse Burton PA-C Unavailable Marquita Starkey MD Unavailable [phone] Roopa Almonte MD Unavailable [phone] Griffin Joshi MD Unavailable Rina Magallon RN Unavailable [phone] Paula Reza MD Primary Care Provider [phone] Griffin Joshi MD Unavailable Roopa Almonte MD Unavailable [phone] [facility] hospitalBasilio win DO Unavailable Lydia Bernstein PA-C Unavailable Rosa Maria Love Unavailable [phone] Augustine Callaway MD Unavailable Paula Reza MD Unavailable Keerthi Miner APRN POTATO PEELER Unavailable Herman, Shahida Cummings APRN POTATO PEELER Unavailable Un available Porsha Michaels APRN POTATO PEELER Unavailable [phone] Paula Reza MD Unavailable Herman, Shahida Cummings APRN POTATO PEELER Unavailable Un available Daylin Ludwig Unavailable [phone] Laurel Velasquez MD Unavailable [phone] Daylin Ludwig Unavailable [phone] Paula Reza MD Unavailable Porsha Michaels APRN POTATO PEELER Unavailable [phone] Laurel Velasquez MD Unavailable [phone] Herman, Shahida Cummings APRN POTATO PEELER Unavailable Un available Marilin Montaño POTATO PEELER Unavailable [phone] Esha Dewitt MD Unavailable [phone] Heather Mosquera MD Unavailable [phone] Paula Reza MD Unavailable Esha Dewitt MD Unavailable [phone] Valdo Escamilla Deo PA-C Unavailable [phone] Rima Wilfredosima PA-C Unavailable [phone] Heather Mosquera MD Unavailable Fawad York MD Unavailable [phone] Reason for Visit * Reason Onset Date Comments Refill Request 03/18/2010 Vicodin Encounter Details Date Type Department Care Team (Late st Contact Info) Description 03/18/2010 [facility] [address] [address] Mingo Aldana MD [facility] [address] [place] [address] Refill Request (Vicodin) Social History Tobacco Use Types Packs/Day Years [...] encounter Miscellaneous Notes * Telephone Encounter - Milagros Denton RN - 03/18/2010 2:[address] Mingo Aldana: Please see Pt's request below. As stated, he has been taking Vicodin 3x per day some days. Last refill was on 02/21/2010 for a max dose of 2 tablets per day. Thank you, Milagros Denton RN E ADJUSTER * Telephone Encounter - Milagros Denton RN - 03/18/2010 2:14 PM [facility]uro Jared Terrell would like a refill of the following medications: hydrocodone-acetaminophen (NORCO) 10-325 MG per tablet [Mingo Aldana MD] Preferred pharmacy: [facility] Comment: Doctor,Per my Psych I have begun 5mg Abilify ~ 3.5 weeks ago, and it has done wonders for depression and anxiety and depression. I require little ativan and will likely stop soon. However it has Increased my headache problem . Were it not so effective for the other problems that have been so severe, I would discontinue for that reason. As a result there are some days were there has been need for Bret. use 3x along with OTC. and my supply is low. Any questions, concerns [phone] E ADJUSTER documented in this encounter Plan of Treatment Not on file documented as of this encounter Visit Diagnoses Diagnosis Lumbago- Primary documented in this encounter Additional Health Concerns Infection Onset Date Last Indicated Resolved Time Rule Out COVID-19 02/15/2020 02/15/2020 02/16/2020 2:32 PM SCALE ADJUSTER Rule Out COVID-19 01/05/2021 01/05/2021 01/06/2021 12:57 PM CDT ESBL 01/05/2021 01/05/2021 Rule Out COVID-19 06/30/2021 06/30/2021 07/01/2021 9:34 AM CDT Rule Out COVID-19 07/25/2021 07/25/2021 07/25/2021 8:02 PM CDT documented as of this encounter Care Teams Fourdrinier Wire Weaver Relationship Specialty Start Date End Date Mingo Aldana MD PCP - General Family Practice 07/22/09 07/12/14 Shahida Sutton APRN POTATO PEELER PCP - General Nurse Practitioner 08/17/14 08/04/21 Shahida Sutton APRN POTATO PEELER PCP - Assigned PCP 07/12/14 05/07/18 Paula Reza MD [address] [facility] [address] [place] [address] PCP - General Internal Medicine 08/05/21 Shahida Sutton APRN POTATO PEELER Assigned PCP 07/12/14 09/30/21 Carolynn Ramon, KASIE Personal Advocate & Liaison (PAL) 12/17/18 08/07/21 [place] [address] [facility] [address] [place] [address] Assigned Musculoskeletal Provider 12/26/19 08/21/20 Brady Lion MD Assigned Heart and Vascular Provider 12/26/19 08/14/20 Nima France PA-C [address] [facility] [address] [place] [address] Assigned Surgical Provider 05/19/20 08/21/20 aCmille Chandler PA-C 65[address] [facility] [address] [place] [address] Assigned Neuroscience Provider 05/19/20 09/14/20 Anabela Barakat APRN POTATO PEELER [address] [place] [address] Assigned Heart and Vascular Provider 08/15/20 08/05/21 Nima France PA-C [address] [place] [address] Assigned Musculoskeletal Provider 08/22/20 11/13/20 [place] [address] [facility] [place] [address] Assigned Musculoskeletal Provider 11/14/20 12/04/20 Fawad York MD [address] [place], [place] [address] Assigned Musculoskeletal Provider 12/05/20 02/05/21 Roopa Almonte MD [address] [facility] [address] [place] [address] Endocrinology, Diabetes, and Metabolism 01/19/21 [place] [address] [facility] [address] [place] [address] Assigned Musculoskeletal Provider 02/06/21 09/16/21 Maryse Burton PA-C [address] [place] [address] Physician Business Continuity Director Dermatology 04/14/21 Marquita Starkey MD [address] [place] [address] Internal Medicine 05/06/21 05/06/21 Roopa Almonte MD [address] [place] [address] Hospitalist Endocrinology, Diabetes, and Metabolism 05/30/21 Griffin Joshi MD [address] [facility] [address] [place] [address] Cardiovascular Disease 07/25/21 Rina Magallon, RN Lead Implementation Director 07/29/21 07/11/22 Griffin Joshi MD [address] [facility] [address] [place] [address] Assigned Heart and Vascular Provider 08/06/21 10/07/21 Roopa Almonte MD [address] [place] [address] [address] [place], [place] [address] Assigned Endocrinology Provider 09/10/21 [place] [address] [facility] [place] [address] Assigned Musculoskeletal Provider 09/17/21 10/14/21 Lydia Bernstein PA-C [address] [facility] [address] [place] [address] Assigned PCP 10/01/21 10/21/21 Rosa Maria Love CHW Community Health Worker 10/06/21 [place] [address] [facility] [address] [place] [address] Assigned Musculoskeletal Provider 10/15/21 04/26/23 Paula Reza MD [address] [place] [address] Assigned PCP 10/22/21 12/23/21 Keerthi Miner APRN POTATO PEELER [address] [place] [address] Assigned Heart and Vascular Provider 10/08/21 02/10/22 Shahida Sutton APRN POTATO PEELER Assigned PCP 12/24/21 03/24/22 Porsha Michaels GENERAL HANDLING SUPERVISOR POTATO PEELER [address] [place] [address] Assigned Heart and Vascular Provider 02/11/22 05/12/22 Puala Reza MD [address] [facility] [address] [place] [address] Assigned PCP 03/25/22 04/07/22 Shahida Sutton APRN POTATO PEELER [address] [place] [address] Assigned PCP 04/08/22 06/30/22 Daylin Ludwig EP [facility] [address] [place] [address] Cardiac Rehabilitation Therapist 05/16/23 Laurel Velasquez MD [address] [place] [address] Assigned Heart and Vascular Provider 05/13/22 06/30/22 Daylin Ludwig EP [facility] [address] [place] [address] Cardiac Rehabilitation Therapist 06/08/22 06/09/23 Paula Reza MD [address] [place], [place] [address] Assigned PCP 07/01/22 07/07/22 Porsha Michaels APRN POTATO PEELER [address] [place] [address] Assigned Heart and Vascular Provider 07/01/22 07/07/22 Laurel Velasquez MD [address] [place], [place] [address] Assigned Heart and Vascular Provider 07/08/22 08/04/22 Shahida Sutton APRN POTATO PEELER Assigned PCP 07/08/22 09/08/22 Marilin Montaño, POTATO PEELER [address] [place] [address] Assigned Heart and Vascular Provider 08/05/22 Esha Dewitt MD [address] [place] [address] Gastroenterology 09/06/22 Heather Mosquera MD [address] [place] [address] Internal Medicine 09/06/22 Paula Reza MD [address] [place], [place] [address] Assigned PCP 09/09/22 01/05/23 Esha Dewitt MD [address] [place] [address] 395525 Assigned Gastroenterology Provider 09/23/22 Valdo Escamilla PA-C [address] [facility] [address] [place] [address] Assigned Neuroscience Provider 09/30/22 Nohelia Abarca PA-C [address] [place], [place] [address] Physician Business Continuity Director Gastroenterology 10/03/22 Heather Mosquera MD 6545 [facility] [address] [place] [address] Assigned PCP 01/06/23 Fawad York MD [address] [place], [place] [address] Assigned Musculoskeletal Provider 04/27/23 06/25/23 documented as of this encounter
--- OUTSIDE RECORDS SUMMARY | 2023-09-18 13:54 | XMS_ITS | Encounter Summary ---
Author Organization [facility] Address [address] [place] [address] Care Team Providers Care Narrow Gauge Brakeman Name Role Phone Mingo Aldana MD Primary Car e Provider Herman, Shahida Cummings APRN SUPERVISOR GROWER Primary Care Provi ford Unavailable Herman, Shahida Cummings APRN SUPERVISOR GROWER Unavailable Un available Herman, Shahida Cummings APRN SUPERVISOR GROWER Unavailable Un available Carolynn Ramon RN Unavailable [phone] Augustine Callaway MD Unavailable Brady Lion MD Unavailable Un available Nima France-C Unavailable [phone] Camille Chandler PA-C Unavailable [phone] Anabela Barakat APRN SUPERVISOR GROWER Unavailable Nima France-C Unavailable [phone] Basilio Morillo DO Unavailable [phone] Fawad York MD Unavailable [phone] Roopa Almonte MD Unavailable [phone] Augustine Callaway MD Unavailable Maryse Burton PA-C Unavailable Marquita Starkey MD Unavailable [phone] Roopa Almonte MD Unavailable [phone] Griffin Joshi MD Unavailable Rina Magallon RN Unavailable [phone] Paula Reza MD Primary Care Provider [phone] Griffin Joshi MD Unavailable Roopa Almonte MD Unavailable [phone] [facility] islandBasilio win DO Unavailable Lydia Bernstein PA-C Unavailable Rosa Maria Love Unavailable [phone] Augustine Callaway MD Unavailable Paula Reza MD Unavailable Keerthi Miner APRN SUPERVISOR GROWER Unavailable Herman, Shahida Cummings APRN SUPERVISOR GROWER Unavailable Un available Porsha Michaels APRN SUPERVISOR GROWER Unavailable [phone] Paula Reza MD Unavailable Herman, Shahida Cummings APRN SUPERVISOR GROWER Unavailable Un available Daylin Ludwig Unavailable [phone] Laurel Velasquez MD Unavailable [phone] Daylin Ludwig Unavailable [phone] Paula Reza MD Unavailable Porsha Michaels APRN SUPERVISOR GROWER Unavailable [phone] Laurel Velasquez MD Unavailable [phone] Herman, Shahida Cummings APRN SUPERVISOR GROWER Unavailable Un available Marilin Montaño SUPERVISOR GROWER Unavailable [phone] Esha Dewitt MD Unavailable [phone] Heather Mosquera MD Unavailable Paula Reza MD Unavailable Esha Dewitt MD Unavailable [phone] Valdo Escamilla Deo PA-C Unavailable Nohelia Abarca PA-C Unavailable [phone] Heather Mosquera MD Unavailable Fawad York MD Unavailable [phone] Reason for Visit * Reason Onset Date Comments Pt. Information/instruction 07/05/2012 MRI Encounter Details Date Type Department Care Team (Late st Contact Info) Description 07/05/[address] [facility] [address], [address] [place] [address] Mingo Aldana MD [facility] [address] [place], [place] [address] Pt. Information/instruc tion (MRI) Social History Tobacco Use Types Packs/Day Years [...] encounter Miscellaneous Notes * Telephone Encounter - Jing Sampson - 07/05/2012 4:11 PM CDT MRI orders faxed to [facility]. I informed Mauro by [facility] reply. (Jing in referrals) * Telephone Encounter - Mingo Aldana MD - 07/05/2012 3:59 PM CDT Hi, patient needs open sided MRI Can we do [facility] for his shoulder? Mingo Aldana MD [facility] documented in this encounter Plan of Treatment Not on file documented as of this encounter Visit Diagnoses Not on filedocumented in this encounter Additional Health Concerns Infection Onset Date Last Indicated Resolved Time Rule Out COVID-19 02/15/2020 02/15/2020 02/16/2020 2:32 PM CONCIERGE Rule Out COVID-19 01/05/2021 01/05/2021 01/06/2021 12:57 PM CDT ESBL 01/05/2021 01/05/2021 Rule Out COVID-19 06/30/2021 06/30/2021 07/01/2021 9:34 AM CDT Rule Out COVID-19 07/25/2021 07/25/2021 07/25/2021 8:02 PM CDT documented as of this encounter Care Teams Narrow Gauge Brakeman Relationship Specialty Start Date End Date Mingo Aldana MD PCP - General Family Practice 07/22/09 07/12/14 Shahida Sutton APRN SUPERVISOR GROWER PCP - General Nurse Practitioner 08/17/14 08/04/21 Shahida Sutton APRN SUPERVISOR GROWER PCP - Assigned PCP 07/12/14 05/07/18 Paula Reza MD [address] [address] PCP - General Internal Medicine 08/05/21 Shahida Sutton APRN SUPERVISOR GROWER Assigned PCP 07/12/14 09/30/21 Carolynn Ramon RN Personal Advocate & Liaison (PAL) 12/17/18 08/07/21 [place] [address] [place] [address] Assigned Musculoskeletal Provider 12/26/19 08/21/20 Brady Lion MD Assigned Heart and Vascular Provider 12/26/19 08/14/20 Nima France PA-C 6545 [facility] S [facility] [address] [place] [address] Assigned Surgical Provider 05/19/20 08/21/20 Camille Chandler PA-C [address] [facility] [address] [place] [address] [place] [address] Assigned Neuroscience Provider 05/19/20 09/14/20 Anabela Barakat APRN SUPERVISOR GROWER [address] [place] [address] Assigned Heart and Vascular Provider 08/15/20 08/05/21 Nima France PA-C [address] [address] [place] [address] Assigned Musculoskeletal Provider 08/22/20 11/13/20 [place] [address] [facility] [place] [address] Assigned Musculoskeletal Provider 11/14/20 12/04/20 Fawad York MD [address] [place] [address] Assigned Musculoskeletal Provider 12/05/20 02/05/21 Roopa Almonte MD [address] [facility] [address] [place] [address] Endocrinology, Diabetes, and Metabolism 01/19/21 [place] [address] [facility] [address] [place] [address] Assigned Musculoskeletal Provider 02/06/21 09/16/21 Maryse Burton PA-C [address] [place] [address] Physician Associate Partner Dermatology 04/14/21 Marquita Starkey MD [address] [facility] [address] [place] [address] Internal Medicine 05/06/21 05/06/21 Roopa Almonte MD [address] [facility] [address] [place] [address] Hospitalist Endocrinology, Diabetes, and Metabolism 05/30/21 Griffin Joshi MD [address] [place] [address] Cardiovascular Disease 07/25/21 Rina Magallon, RN Lead Book Repairer 07/29/21 07/11/22 Griffin Joshi MD [address] [place] [address] Assigned Heart and Vascular Provider 08/06/21 10/07/21 Roopa Almonte MD [address] [facility] [address] [place] [address] Assigned Endocrinology Provider 09/10/21 [place] [address] [facility] [place] [address] Assigned Musculoskeletal Provider 09/17/21 10/14/21 Lydia Bernstein PA-C [address] [place] [address] Assigned PCP 10/01/21 10/21/21 Rosa Maria Love Cristina Community Health Worker 10/06/21 [place] [address] [facility] [address] [place] [address] Assigned Musculoskeletal Provider 10/15/21 04/26/23 Paula Reza MD [address] [facility] [address] [place] [address] Assigned PCP 10/22/21 12/23/21 Keerthi Miner APRN SUPERVISOR GROWER [address] [place] [address] Assigned Heart and Vascular Provider 10/08/21 02/10/22 Shahida Sutton APRN SUPERVISOR GROWER Assigned PCP 12/24/21 03/24/22 Porsha Michaels APRN SUPERVISOR GROWER [address] [place] [address] Assigned Heart and Vascular Provider 02/11/22 05/12/22 Paula Reza MD [address] [place] [address] Assigned PCP 03/25/22 04/07/22 Shahida Sutton APRN SUPERVISOR GROWER [address] [place] [address] Assigned PCP 04/08/22 06/30/22 Daylin Ludwig, MIKI [facility] [address] [place] [address] Cardiac Rehabilitation Therapist 05/16/23 Laurel Velasquez MD [address] [place] [address] Assigned Heart and Vascular Provider 05/13/22 06/30/22 Daylin Ludwig, EP [facility] [address] [place] [address] Cardiac Rehabilitation Therapist 06/08/22 06/09/23 Paula Reza MD [address] [place] [address] Assigned PCP 07/01/22 07/07/22 Porsha Michaels APRN SUPERVISOR GROWER [address] [place] [address] Assigned Heart and Vascular Provider 07/01/22 07/07/22 Laurel Velasquez MD [address] [place] [address] Assigned Heart and Vascular Provider 07/08/22 08/04/22 Shahida Sutton APRN SUPERVISOR GROWER Assigned PCP 07/08/22 09/08/22 Marilin Montaño, SUPERVISOR GROWER [address] [place] [address] Assigned Heart and Vascular Provider 08/05/22 Esha Dewitt MD 420 [facility] 36 [place], [place] [address] MD Gastroenterology 09/06/22 Heather Mosquera MD [address] [facility] [address] [facility] [place] [address] MD Internal Medicine 09/06/22 Paula Reza MD [address] [facility] [address] [place], [place] [address] Assigned PCP 09/09/22 01/05/23 Esha Dewitt MD 420 [facility] [address] [place], [place] [address] Assigned Gastroenterology Provider 09/23/22 Valdo Escamilla PA-C [address] [place] [address] Assigned Neuroscience Provider 09/30/22 Nohelia Abarca PA-C [address] [place] [address] Physician Associate Partner Gastroenterology 10/03/22 Heather Mosquera MD [address] [facility] [address] [place] [address] Assigned PCP 01/06/23 Fawad York MD [address] [place] [address] Assigned Musculoskeletal Provider 04/27/23 06/25/23 documented as of this encounter
--- OUTSIDE RECORDS SUMMARY | 2023-09-18 13:55 | XMS_ITS | Encounter Summary ---
Author Organization [place] Address [address] [place] [address] Care Team Providers Care Kiln Remover Name Role Phone Dixon Carson MD Primary Care Provider Mingo Aldana MD Primary Car e Provider Shahida Sutton BACK ROLL LATHE OPERATOR PILOT PLANT SUPERVISOR Primary Care Provi ford Unavailable Herman, Shahida Cummings APRN PILOT PLANT SUPERVISOR Unavailable Un available Herman, Shahida Cummings APRN PILOT PLANT SUPERVISOR Unavailable Un available Carolynn Ramon RN Unavailable [phone] Augustine Callaway MD Unavailable Brady Lion MD Unavailable Un available Nima FranceC Unavailable [phone] Camille Chandler PA-C Unavailable [phone] Anabela Barakat APRN PILOT PLANT SUPERVISOR Unavailable Nima FranceC Unavailable [phone] Basilio Morillo DO Unavailable [phone] Fawad York MD Unavailable [phone] Roopa Almonte MD Unavailable [phone] Augustine Callaway MD Unavailable Maryse Burton PA-C Unavailable Marquita Starkey MD Unavailable Roopa Almonte MD Unavailable [phone] Griffin Joshi MD Unavailable Rina Magallon RN Unavailable Paula Reza MD Primary Care Provider [phone] Griffin Joshi MD Unavailable Roopa Almonte MD Unavailable [facility] win DO Unavailable Lydia Bernstein PA-C Unavailable Rosa Maria Love Unavailable [phone] Augustine Callaway MD Unavailable Paula Reza MD Unavailable Keerthi Miner APRN PILOT PLANT SUPERVISOR Unavailable Hermna, Shahida Cummings APRN PILOT PLANT SUPERVISOR Unavailable Un available Porsha Michaels APRN PILOT PLANT SUPERVISOR Unavailable [phone] Paula Reza MD Unavailable Herman, Shahida Cummings APRN PILOT PLANT SUPERVISOR Unavailable Un available Daylin Ludwig Unavailable [phone] Laurel Velasquez MD Unavailable Daylin Ludwig Unavailable [phone] Paula Reza MD Unavailable Porsha Michaels APRN PILOT PLANT SUPERVISOR Unavailable [phone] Laurel Velasquez MD Unavailable Herman, Shahida Cummings APRN PILOT PLANT SUPERVISOR Unavailable Un available Marilin Montaño PILOT PLANT SUPERVISOR Unavailable [phone] Esha Dewitt MD Unavailable [phone] Heather Mosquera MD Unavailable Paula Reza MD Unavailable Esha Dewitt MD Unavailable [phone] Ayserick Valdo Desouza PA-C Unavailable Nohelia AbracaC Unavailable [phone] Heather Mosquera MD Unavailable Fawad York MD Unavailable Reason for Visit * Reason Onset Date Comments Refill Request 09/25/2008 vicodin Encounter Details Date Type Department Care Team (Late st Contact Info) Description 09/25/2008 MyC Refill [address] [address] Dixon Carson MD [address] [address] Refill Request (vicodin) Social History Tobacco Use Types Packs/Day Years Used Date Smoking Tobacco: Former Cigarettes 0.5 25 1 - 12/09/2006 Pipe Cigars Comments:social smoker Alcohol Use Standard Drinks/Week Comments Yes 0 (1 standard drink = 0.6 oz pur e alcohol) 2 drinks/ week Sex and Gender Information Value Date Recorded Sex Assigned at Male 09/20/2020 8:37 AM CDT Gender Identity Male 09/20/2020 8:37 AM CDT Sexual Orientation Straight 09/20/2020 8: 37 AM CDT documented as of this encounter Miscellaneous Notes * Telephone Encounter - Liliana Nolasco - 09/25/2008 10:05 AM CDT Last office visit: Reason for visit: e-visit for low back pain Date last filled: #[id number] (RX STATES #60/MO) NOT A PSO FRANCO Nolasco RN * Telephone Encounter - Liliana Nolasco - 09/25/2008 10:03 AM CDTMessage from [facility]: Mauro Terrell would like a refill of the following medications: HYDROCODONE-ACETAMINOPHEN 10-325 MG OR TABS [Dixon Carson MD] Preferred pharmacy: [facility] Comment: Still dealing with daily debilitating headaches that require a mixture of medications to suppress (NSAIDs, Acet, Vicodin). Will be following up as soon as possible to pursue this as this is a real problem. 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 Rule Out COVID-19 01/05/2021 01/05/2021 01/06/2021 12:57 PM CDT ESBL 01/05/2021 01/05/2021 Rule Out COVID-19 06/30/2021 06/30/2021 07/01/2021 9:34 AM CDT Rule Out COVID-19 07/25/2021 07/25/2021 07/25/2021 8:02 PM CDT documented as of this encounter Care Teams Kiln Remover Relationship Specialty Start Date End Date Dixon Carson MD PCP - General 08/10/03 07/21/09 Mingo Aldana MD PCP - General Family Practice 07/22/09 07/12/14 Shahida Sutton APRN PILOT PLANT SUPERVISOR PCP - General Nurse Practitioner 08/17/14 08/04/21 Shahida Sutton APRN PILOT PLANT SUPERVISOR PCP - Assigned PCP 07/12/14 05/07/18 Paula Reza MD [address] [facility] [address] [place] [address] PCP - General Internal Medicine 08/05/21 Shahida Sutton APRN PILOT PLANT SUPERVISOR Assigned PCP 07/12/14 09/30/21 Carolynn Ramon RN Personal Advocate & Liaison (PAL) 12/17/18 08/07/21 [place] [address] [place] [address] Assigned Musculoskeletal Provider 12/26/19 08/21/20 Brady Lion MD Assigned Heart and Vascular Provider 12/26/19 08/14/20 Nima France PA-C [address] [facility] [address] [place] [address] Assigned Surgical Provider 05/19/20 08/21/20 Camille Chandler PA-C [address] [facility] [address] [place] [address] Assigned Neuroscience Provider 05/19/20 09/14/20 Anabela Barakat APRN PILOT PLANT SUPERVISOR [address] [place] [address] Assigned Heart and Vascular Provider 08/15/20 08/05/21 Nima France PA-C [address] [place] [address] Assigned Musculoskeletal Provider 08/22/20 11/13/20 [place] [address] [facility] [place] [address] Assigned Musculoskeletal Provider 11/14/20 12/04/20 aFwad York MD [address] [place] [address] Assigned Musculoskeletal Provider 12/05/20 02/05/21 Roopa Almonte MD [address] [facility] 200 [place] [address] Endocrinology, Diabetes, and Metabolism 01/19/21 [place] [address] [facility] 300 [place] [address] Assigned Musculoskeletal Provider 02/06/21 09/16/21 Maryse Burton PAAna MariaC [address] [place] [address] Physician Roping Machine Tender Dermatology 04/14/21 Marquita Starkey MD [address] [facility] 200 [place] [address] Internal Medicine 05/06/21 05/06/21 Roopa Almonte MD [address] [facility] 200 [place] [address] Hospitalist Endocrinology, Diabetes, and Metabolism 05/30/21 Griffin Joshi MD [address] [facility] [address] [place] [address] Cardiovascular Disease 07/25/21 Rina Magallon, RN Lead Manager Telemetry 07/29/21 07/11/22 Griffin Joshi MD [address] [place] [address] Assigned Heart and Vascular Provider 08/06/21 10/07/21 Roopa Almonte MD [address] [facility] [address] [place], [place] [address] Assigned Endocrinology Provider 09/10/21 [place] [address] [facility] [place] [address] Assigned Musculoskeletal Provider 09/17/21 10/14/21 Lydia Bernstein PA-C [address] [place] [address] Assigned PCP 10/01/21 10/21/21 Rosa Maria Love CHW Community Health Worker 10/06/21 [place] [address] [place] [address] Assigned Musculoskeletal Provider 10/15/21 04/26/23 Paula Reza MD [address] [facility] 200 [place] [address] Assigned PCP 10/22/21 12/23/21 Keerthi Miner APRN PILOT PLANT SUPERVISOR [address] [place] [address] Assigned Heart and Vascular Provider 10/08/21 02/10/22 Shahida Sutton APRN PILOT PLANT SUPERVISOR Assigned PCP 12/24/21 03/24/22 Porsha Michaels APRN PILOT PLANT SUPERVISOR [address] [place] [address] Assigned Heart and Vascular Provider 02/11/22 05/12/22 Paula Reza MD [address] [place] [address] Assigned PCP 03/25/22 04/07/22 Shahida Sutton APRN PILOT PLANT SUPERVISOR [address] [place] [address] Assigned PCP 04/08/22 06/30/22 Daylin Ludwig, EP [facility] [address] [place] [address] Cardiac Rehabilitation Therapist 05/16/23 Laurel Velasquez MD [address] [place] [address] Assigned Heart and Vascular Provider 05/13/22 06/30/22 Daylin Ludwig, MIKI [facility] [address] [place] [address] Cardiac Rehabilitation Therapist 06/08/22 06/09/23 Paula Reza MD [address] [place] [address] Assigned PCP 07/01/22 07/07/22 Porsha Michaels APRN PILOT PLANT SUPERVISOR [address] [place] [address] Assigned Heart and Vascular Provider 07/01/22 07/07/22 Laurel Velasquez MD [address] [place] [address] Assigned Heart and Vascular Provider 07/08/22 08/04/22 Shahida Sutton APRN PILOT PLANT SUPERVISOR Assigned PCP 07/08/22 09/08/22 Marilin Montaño, PILOT PLANT SUPERVISOR [address] [place] [address] Assigned Heart and Vascular Provider 08/05/22 Esha Dewitt MD [address] [facility] 36 [place] [address] Gastroenterology 09/06/22 Heather Mosquera MD [address] [place] [address] Internal Medicine 09/06/22 Paula Reza MD [address] [facility] [address] [place], [place] [address] Assigned PCP 09/09/22 01/05/23 Esha Dewitt MD [address] [facility] 36 [place] [address] Assigned Gastroenterology Provider 09/23/22 Valdo Escamilla PA-C [address] [facility] [address] [place] [address] Assigned Neuroscience Provider 09/30/22 Nohelia Abarca PA-C [address] [facility] [place] [place] [address] Physician Roping Machine Tender Gastroenterology 10/03/22 Heather Mosquera MD [address] [place] MD [id number] Assigned PCP 01/06/23 Fawad York MD [address] [place], [place] [address] Assigned Musculoskeletal Provider 04/27/23 06/25/23 documented as of this encounter
--- OUTSIDE RECORDS SUMMARY | 2023-09-18 13:55 | XMS_ITS | Encounter Summary ---
Author Organization [place] Address [address] [place] [address] Care Team Providers Care Cider Maker Name Role Phone Dixon Carson MD Primary Care Provider Mingo Aldana MD Primary Car e Provider Shahida Sutton MANAGER SUPPORT VENEER MARKER Primary Care Provi ford Unavailable Herman, Shahida Cummings APRN VENEER MARKER Unavailable Un available Herman, Shahida Cummings APRN VENEER MARKER Unavailable Un available Carolynn Ramon RN Unavailable [phone] Augustine Callaway MD Unavailable Brady Lion MD Unavailable Un available Nima FranceC Unavailable [phone] Camille Chandler PA-C Unavailable [phone] Anabela Barakat APRN VENEER MARKER Unavailable Nima FranceC Unavailable [phone] Basilio Morillo DO Unavailable [phone] Fawad York MD Unavailable [phone] Roopa Almonte MD Unavailable [phone] Augustine Callaway MD Unavailable Maryse Burton PA-C Unavailable Marquita Starkey MD Unavailable Roopa Almonte MD Unavailable [phone] Griffin Joshi MD Unavailable Rina Magallon RN Unavailable Paula Reza MD Primary Care Provider [phone] Griffin Joshi MD Unavailable Roopa Almonte MD Unavailable [facility] win DO Unavailable Lydia Bernstein PA-C Unavailable Rosa Maria Love Unavailable [phone] Augustine Callaway MD Unavailable Paula Reza MD Unavailable Keerthi Miner APRN VENEER MARKER Unavailable Herman, Shahida Cummings APRN VENEER MARKER Unavailable Un available Porsha Michaels APRN VENEER MARKER Unavailable [phone] Paula Reza MD Unavailable Herman, Shahida Cummings APRN VENEER MARKER Unavailable Un available Daylin Ludwig Unavailable [phone] Laurel Velasquez MD Unavailable Daylin Ludwig Unavailable [phone] Paula Reza MD Unavailable Porsha Michaels APRN VENEER MARKER Unavailable [phone] Laurel Velasquez MD Unavailable Herman, Shahida Cummings APRN VENEER MARKER Unavailable Un available Marilin Montaño VENEER MARKER Unavailable Esha Dewitt MD Unavailable [phone] Heather Mosquera MD Unavailable [phone] Paula Reza MD Unavailable Esha Dewitt MD Unavailable [phone] Ayserick Valdo Desouza PA-C Unavailable Nohelia AbarcaC Unavailable [phone] Heather Mosquera MD Unavailable [phone] Fawad York MD Unavailable [phone] Reason for Visit * Reason Onset Date Comments Refill Request 08/28/2008 hydrocodone Encounter Details Date Type Department Care Team (Late st Contact Info) Description 08/28/2008 MyC Refill [address] [address] Dixon Carson MD [address] [address] Refill Request (hydrocodone) Social History Tobacco Use Types Packs/Day Years [...] encounter Miscellaneous Notes * Telephone Encounter - Dalila Jones - 08/28/2008 3:09 PM CDT Last OV: 07/31/08 Reason for visit: hand arthritis Date last filled: 07/31/08 #60 Unable to fill PSO Dalila Jones RN * Telephone Encounter - Dalila Jones - 08/28/2008 3:08 PM [facility]rell would like a refill of the following medications: HYDROCODONE-ACETAMINOPHEN 10-325 MG OR TABS [Dixon Carson MD] Preferred pharmacy: [facility] Comment: Daily headaches continuing documented in this encounter Plan of Treatment Not on file documented as of this encounter Visit Diagnoses Diagnosis Lumbago Insomnia Insomnia, unspecified CHRISTOFER (obstructive sleep apnea) Obstructive sleep apnea (adult) (pediatric) Headaches Headache Hand arthritis Unspecified arthropathy, hand documented in this encounter Additional Health Concerns Infection Onset Date Last Indicated Resolved Time Rule Out COVID-19 02/15/2020 02/15/2020 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 Rule Out COVID-19 01/05/2021 01/05/2021 01/06/2021 12:57 PM CDT ESBL 01/05/2021 01/05/2021 Rule Out COVID-19 06/30/2021 06/30/2021 07/01/2021 9:34 AM CDT Rule Out COVID-19 07/25/2021 07/25/2021 07/25/2021 8:02 PM CDT documented as of this encounter Care Teams Cider Maker Relationship Specialty Start Date End Date Dixon Carson MD PCP - General 08/10/03 07/21/09 Mingo Aldana MD PCP - General Family Practice 07/22/09 07/12/14 Shahida Sutton APRN VENEER MARKER PCP - General Nurse Practitioner 08/17/14 08/04/21 Shahida Sutton APRN VENEER MARKER PCP - Assigned PCP 07/12/14 05/07/18 Paula Reza MD [address] [place] [phone] (Work) PCP - General Internal Medicine 08/05/21 Shahida Sutton APRN VENEER MARKER Assigned PCP 07/12/14 09/30/21 Carolynn Ramon, KASIE Personal Advocate & Liaison (PAL) 12/17/18 08/07/21 [place] [address] [address] [address] [place] [address] Assigned Musculoskeletal Provider 12/26/19 08/21/20 Brady Lion MD Assigned Heart and Vascular Provider 12/26/19 08/14/20 Nima France PA-C [address] [facility] [address] [place] [address] Assigned Surgical Provider 05/19/20 08/21/20 Camille Chandler PA-C [address] [facility] [address] [place] [address] Assigned Neuroscience Provider 05/19/20 09/14/20 Anabela Barakat APRN VENEER MARKER [address] [place] [address] Assigned Heart and Vascular Provider 08/15/20 08/05/21 Nima France PA-C [address] [facility] [address] [place] [address] Assigned Musculoskeletal Provider 08/22/20 11/13/20 [place] [address] [facility] [place] [address] Assigned Musculoskeletal Provider 11/14/20 12/04/20 Fawad York MD [address] [place], [place] [address] Assigned Musculoskeletal Provider 12/05/20 02/05/21 Roopa Almonte MD [address] [facility] 200 [place] [address] Endocrinology, Diabetes, and Metabolism 01/19/21 [place] [address] [facility] 300 [place] [address] Assigned Musculoskeletal Provider 02/06/21 09/16/21 Maryse Burton PAAna MariaC [address] [place] [address] Physician Printed Circuit Boards Plasma Etcher Dermatology 04/14/21 Marquita Starkey MD [address] [facility] 200 [place] [address] Internal Medicine 05/06/21 05/06/21 Roopa Almonte MD [address] [facility] 200 [place] [address] Hospitalist Endocrinology, Diabetes, and Metabolism 05/30/21 Griffin Joshi MD [address] [facility] [address] [place] [address] Cardiovascular Disease 07/25/21 Rina Magallon, RN Lead Dry Roaster 07/29/21 07/11/22 Griffin Joshi MD [address] [place] [address] Assigned Heart and Vascular Provider 08/06/21 10/07/21 Roopa Almonte MD [address] [facility] 200 [place], [place] [address] Assigned Endocrinology Provider 09/10/21 [place] [address] [facility] [place] [address] Assigned Musculoskeletal Provider 09/17/21 10/14/21 Lydia Bernstein, TRACEY [address] [place] [address] Assigned PCP 10/01/21 10/21/21 Rosa Maria Love CHW Community Health Worker 10/06/21 [place] [address] [facility] [address] [place] [address] Assigned Musculoskeletal Provider 10/15/21 04/26/23 Paula Reza MD [address] [facility] 200 [place], [place] [address] Assigned PCP 10/22/21 12/23/21 Keerthi Miner APRN VENEER MARKER [address] [place] [address] Assigned Heart and Vascular Provider 10/08/21 02/10/22 Shahida Sutton APRN VENEER MARKER Assigned PCP 12/24/21 03/24/22 Porsha Michaels APRN VENEER MARKER [address] [place] [address] Assigned Heart and Vascular Provider 02/11/22 05/12/22 Paula Reza MD [address] [place] [address] Assigned PCP 03/25/22 04/07/22 Shahida Sutton APRN VENEER MARKER [address] [place] [address] Assigned PCP 04/08/22 06/30/22 Daylin Ludwig, EP [facility] [address] [place] [address] Cardiac Rehabilitation Therapist 05/16/23 Laurel Velasquez MD [address] [place] [address] Assigned Heart and Vascular Provider 05/13/22 06/30/22 Daylin Ludwig, EP [facility] [address] [place] [address] Cardiac Rehabilitation Therapist 06/08/22 06/09/23 Paula Reza MD [address] [place] [address] Assigned PCP 07/01/22 07/07/22 Porsha Michaels APRN VENEER MARKER [address] [place] [address] Assigned Heart and Vascular Provider 07/01/22 07/07/22 Laurel Velasquez MD [address] [place] [address] Assigned Heart and Vascular Provider 07/08/22 08/04/22 Shahida Sutton, MANAGER SUPPORT VENEER MARKER Assigned PCP 07/08/22 09/08/22 Marilin Montaño, VENEER MARKER [address] [place] [address] Assigned Heart and Vascular Provider 08/05/22 Esha Dewitt MD [address] [place] [address] Gastroenterology 09/06/22 Heather Mosquera MD [address] [place] [address] Internal Medicine 09/06/22 Paula Reza MD [address] [facility] 200 [place], [place] [address] Assigned PCP 09/09/22 01/05/23 Esha Dewitt MD [address] [address] Assigned Gastroenterology Provider 09/23/22 Valdo Escamilla PA-C [address] [place] [address] Assigned Neuroscience Provider 09/30/22 Nohelia Abarca PA-C [address]50 [place] [address] Physician Printed Circuit Boards Plasma Etcher Gastroenterology 10/03/22 Heather Mosquera MD 6545 [facility] 150 [place], [place] [address] Assigned PCP 01/06/23 Fawad York MD [address] [place] [address] Assigned Musculoskeletal Provider 04/27/23 06/25/23 documented as of this encounter
--- OUTSIDE RECORDS SUMMARY | 2023-09-18 13:55 | XMS_ITS | Encounter Summary ---
Author Organization [facility] Address [address] [place] [address] Care Team Providers Care Automobile Seat Cover Installer Name Role Phone Mingo Aldana MD Primary Car e Provider Herman, Shahida Cummings APRN DIRECTOR OF ANALYTICAL DEVELOPMENT Primary Care Provi ford Unavailable Herman, Shahida Cummings APRN DIRECTOR OF ANALYTICAL DEVELOPMENT Unavailable Un available Herman, Shahida Cummings APRN DIRECTOR OF ANALYTICAL DEVELOPMENT Unavailable Un available Carolynn Ramon RN Unavailable [phone] Augustine Callaway MD Unavailable Brady Lion MD Unavailable Un available Nima France-C Unavailable [phone] Camille Chandler PA-C Unavailable [phone] Anabela Barakat APRN DIRECTOR OF ANALYTICAL DEVELOPMENT Unavailable Nima France-C Unavailable [phone] Basilio Morillo DO Unavailable Fawad York MD Unavailable [phone] Roopa Almonte MD Unavailable [phone] Augustine Callaway MD Unavailable Maryse Burton PA-C Unavailable Marquita Starkey MD Unavailable [phone] Roopa Almonte MD Unavailable [phone] Griffin Joshi MD Unavailable Rina Magallon RN Unavailable [phone] Paula Reza MD Primary Care Provider [phone] Griffin Joshi MD Unavailable Roopa Almonte MD Unavailable [phone] [facility] win DO Unavailable Lydia Bernstein PA-C Unavailable Rosa Maria Love Unavailable [phone] Augustine Callaway MD Unavailable Paula Reza MD Unavailable Keerthi Miner APRN DIRECTOR OF ANALYTICAL DEVELOPMENT Unavailable Herman, Shahida Cummings APRN DIRECTOR OF ANALYTICAL DEVELOPMENT Unavailable Un available Porsha Michaels APRN DIRECTOR OF ANALYTICAL DEVELOPMENT Unavailable [phone] Paula Reza MD Unavailable Herman, Shahida Cummings APRN DIRECTOR OF ANALYTICAL DEVELOPMENT Unavailable Un available Daylin Ludwig Unavailable [phone] Laurel Velasquez MD Unavailable [phone] Daylin Ludwig Unavailable [phone] Paula Reza MD Unavailable Porsha Michaels APRN DIRECTOR OF ANALYTICAL DEVELOPMENT Unavailable [phone] Laurel Velasquez MD Unavailable [phone] Herman, Shahida Cummings APRN DIRECTOR OF ANALYTICAL DEVELOPMENT Unavailable Un available Marilin Montaño DIRECTOR OF ANALYTICAL DEVELOPMENT Unavailable [phone] Esha Dewitt MD Unavailable [phone] Heather Mosquera MD Unavailable Paula Reza MD Unavailable Esha Dewitt MD Unavailable [phone] Valdo Escamilla PA-C Unavailable Nohelia Abarca PA-C Unavailable [phone] Heather Mosquera MD Unavailable [phone] Fawad York MD Unavailable [phone] Reason for Visit * Reason Onset Date Comments Refill Request 10/19/2009 Encounter Details Date Type Department Care Team (Late st Contact Info) Description 10/19/2009 MyC Refill [address] [address] Mingo Aldana MD [facility], [facility] [address] [place] [address] Refill Request Social History Tobacco Use Types Packs/Day Years Used Date Smoking Tobacco: Every Day Cigarettes 0.5 25 Started: 12/09/1981; Last attempted to quit: 12/09/2006 Cigars Comments:occasionally Alcohol Use Standard Drinks/Week [...] Out COVID-19 02/15/2020 02/15/2020 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 Rule Out COVID-19 01/05/2021 01/05/2021 01/06/2021 12:57 PM CDT ESBL 01/05/2021 01/05/2021 Rule Out COVID-19 06/30/2021 06/30/2021 07/01/2021 9:34 AM CDT Rule Out COVID-19 07/25/2021 07/25/2021 07/25/2021 8:02 PM CDT documented as of this encounter Care Teams Automobile Seat Cover Installer Relationship Specialty Start Date End Date Mingo Aldana MD PCP - General Family Practice 07/22/09 07/12/14 Shahida Sutton APRN DIRECTOR OF ANALYTICAL DEVELOPMENT PCP - General Nurse Practitioner 08/17/14 08/04/21 Shahida Sutton APRN DIRECTOR OF ANALYTICAL DEVELOPMENT PCP - Assigned PCP 07/12/14 05/07/18 Paula Reza MD [address] [place], [place] [address] PCP - General Internal Medicine 08/05/21 Shahida Sutton APRN DIRECTOR OF ANALYTICAL DEVELOPMENT Assigned PCP 07/12/14 09/30/21 Carolynn Ramon, KASIE Personal Advocate & Liaison (PAL) 12/17/18 08/07/21 [place] [address] [place] [address] Assigned Musculoskeletal Provider 12/26/19 08/21/20 Brady Lion MD Assigned Heart and Vascular Provider 12/26/19 08/14/20 Nima France PA-C [address] [place] [address] Assigned Surgical Provider 05/19/20 08/21/20 Camille Chandler PA-C [address] [facility] [address] [place] [address] Assigned Neuroscience Provider 05/19/20 09/14/20 Anabela Barakat APRN CNP [address] [place] [address] Assigned Heart and Vascular Provider 08/15/20 08/05/21 Nima France PA-C 6545 [facility] 450 [place] [address] Assigned Musculoskeletal Provider 08/22/20 11/13/20 [place] [address] [place], [place] [address] Assigned Musculoskeletal Provider 11/14/20 12/04/20 Fawad York MD [address] [place], [place] [address] Assigned Musculoskeletal Provider 12/05/20 02/05/21 Roopa Almonte MD [address] [facility] 200 [place] [address] Endocrinology, Diabetes, and Metabolism 01/19/21 [place] [address] [facility] [address] [place] [address] Assigned Musculoskeletal Provider 02/06/21 09/16/21 Maryse Burton PA-C [address] [facility] [place] [address] Physician Incident Response Engineer Dermatology 04/14/21 Marquita Starkey MD [address] [facility] 200 [place] [address] Internal Medicine 05/06/21 05/06/21 Roopa Almonte MD [address] [facility] [address] [place] [address] Hospitalist Endocrinology, Diabetes, and Metabolism 05/30/21 Griffin Joshi MD [address] [place] [address] Cardiovascular Disease 07/25/21 Rina Magallon, RN Lead Aircraft Electronics Technical Officer 07/29/21 07/11/22 Griffin Joshi MD [address] [place] [address] Assigned Heart and Vascular Provider 08/06/21 10/07/21 Roopa Almonte MD [address] [facility] 200 [place] [address] Assigned Endocrinology Provider 09/10/21 [place] [address] [facility] [place] [address] Assigned Musculoskeletal Provider 09/17/21 10/14/21 Lydia Bernstein PA-C [address] [place] [address] Assigned PCP 10/01/21 10/21/21 Rosa Maria Love, [facility] Community Health Worker 10/06/21 [place] [address] [place] [address] Assigned Musculoskeletal Provider 10/15/21 04/26/23 Paula Reza MD [address] [place] [address] Assigned PCP 10/22/21 12/23/21 eKerthi Miner APRN DIRECTOR OF ANALYTICAL DEVELOPMENT [address] [place] [address] Assigned Heart and Vascular Provider 10/08/21 02/10/22 Shahida Sutton APRN DIRECTOR OF ANALYTICAL DEVELOPMENT Assigned PCP 12/24/21 03/24/22 Porsha Michaels APRN DIRECTOR OF ANALYTICAL DEVELOPMENT [address] [place] [address] Assigned Heart and Vascular Provider 02/11/22 05/12/22 Paula Reza MD [address] [facility] [address] [place] [address] Assigned PCP 03/25/22 04/07/22 Shahida Sutton APRN DIRECTOR OF ANALYTICAL DEVELOPMENT [address] [place] [address] Assigned PCP 04/08/22 06/30/22 Daylin Ludwig EP [facility] [address] [place] [address] Cardiac Rehabilitation Therapist 05/16/23 Laurel Velasquez MD [address] [place] [address] Assigned Heart and Vascular Provider 05/13/22 06/30/22 Daylin Ludwig EP [facility] [address] [place] [address] Cardiac Rehabilitation Therapist 06/08/22 06/09/23 Paula Reza MD [address] [facility] 200 [place] [address] Assigned PCP 07/01/22 07/07/22 Porsha Michaels APRN DIRECTOR OF ANALYTICAL DEVELOPMENT [address] [place] [address] Assigned Heart and Vascular Provider 07/01/22 07/07/22 Laurel Velasquez MD [address] [place] [address] Assigned Heart and Vascular Provider 07/08/22 08/04/22 Shahida Sutton APRN DIRECTOR OF ANALYTICAL DEVELOPMENT Assigned PCP 07/08/22 09/08/22 Marilin Montaño, DIRECTOR OF ANALYTICAL DEVELOPMENT [address] [place] [address] Assigned Heart and Vascular Provider 08/05/22 Esha Dewitt MD [address] [place] [address] [address] [place], [place] [address] Gastroenterology 09/06/22 Heather Mosquera MD [address] [place] [address] Internal Medicine 09/06/22 Paula Reza MD [address] [facility] 200 [place] [address] Assigned PCP 09/09/22 01/05/23 Esha Dewitt MD [address] [facility] 36 [place] [address] Assigned Gastroenterology Provider 09/23/22 Valdo Escamilla PA-C [address] [facility] [address] [place] [address] Assigned Neuroscience Provider 09/30/22 Nohelia Abarca PA-C [address] [place] [address] Physician Incident Response Engineer Gastroenterology 10/03/22 Heather Mosquera MD [address] [place] [address] Assigned PCP 01/06/23 Fawad York MD [address] [place], [place] [address] Assigned Musculoskeletal Provider 04/27/23 06/25/23 documented as of this encounter
--- OUTSIDE RECORDS SUMMARY | 2023-09-18 13:55 | XMS_ITS | Encounter Summary ---
Author Organization [facility] Address [address] [place] [address] Care Team Providers Care Stroke Coordinator Name Role Phone Dixon Carson MD Primary Care Provider Mingo Aldana MD Primary Car e Provider Shahida Sutton SOLUTION DESIGN ENGINEER FUEL SYSTEM MAINTENANCE SUPERVISOR Primary Care Provi ford Unavailable Herman, Shahida Cummings APRN FUEL SYSTEM MAINTENANCE SUPERVISOR Unavailable Un available Herman, Shahida Cummings APRN FUEL SYSTEM MAINTENANCE SUPERVISOR Unavailable Un available Carolynn Ramon RN Unavailable [phone] Augustine Callaway MD Unavailable Brady Lion MD Unavailable Un available Nima FranceC Unavailable [phone] Camille Chandler PA-C Unavailable [phone] Anabela Barakat APRN FUEL SYSTEM MAINTENANCE SUPERVISOR Unavailable Nima FranceC Unavailable [phone] Basilio Morillo DO Unavailable [phone] Fawad York MD Unavailable [phone] Roopa Almonte MD Unavailable [phone] Augustine Callaway MD Unavailable Maryse Burton PA-C Unavailable Marquita Starkey MD Unavailable Roopa Almonte MD Unavailable [phone] Griffin Joshi MD Unavailable Rina Magallon RN Unavailable Paula Reza MD Primary Care Provider [phone] Griffin Joshi MD Unavailable Roopa Almonte MD Unavailable [facility] hospital[facility]ilio win DO Unavailable Lydia Bernstein PA-C Unavailable Rosa Maria Love Unavailable [phone] Augustine Callaway MD Unavailable Paula Reza MD Unavailable Keerthi Miner APRN FUEL SYSTEM MAINTENANCE SUPERVISOR Unavailable Herman, Shahdia Cummings APRN FUEL SYSTEM MAINTENANCE SUPERVISOR Unavailable Un available Porsha Michaels APRN FUEL SYSTEM MAINTENANCE SUPERVISOR Unavailable [phone] Paula Reza MD Unavailable Herman, Shahida Cummings APRN FUEL SYSTEM MAINTENANCE SUPERVISOR Unavailable Un available Daylin Ludwig Unavailable [phone] Laurel Velasquez MD Unavailable Daylin Ludwig Unavailable [phone] Paula Reza MD Unavailable Porsha Michaels APRN FUEL SYSTEM MAINTENANCE SUPERVISOR Unavailable [phone] Laurel Velasquez MD Unavailable Herman, Shahida Cummings APRN FUEL SYSTEM MAINTENANCE SUPERVISOR Unavailable Un available Marilin Montaño FUEL SYSTEM MAINTENANCE SUPERVISOR Unavailable [phone] Esha Dewitt MD Unavailable [phone] Heather Mosquera MD Unavailable Paula Reza MD Unavailable Esha Dewitt MD Unavailable [phone] Ayserick Valdo Desouza PA-C Unavailable [phone] Nohelia AbarcaC Unavailable [phone] Heather Mosquera MD Unavailable Fawad York MD Unavailable [phone] Reason for Visit * Reason Onset Date Comments Refill Request 07/01/2009 topamax Encounter Details Date Type Department Care Team (Late st Contact Info) Description 07/01/2009 MyC Refill [address] [address] Dixon Carson MD [address] [address] Refill Request (topamax) Social History Tobacco Use Types Packs/Day Years Used Date Smoking Tobacco: Every Day Cigarettes 0.5 25 Started: 12/09/1981; Last attempted to quit: 12/09/2006 Comments:occ cigar Alcohol Use Standard Drinks/Week Comments Yes 0 (1 standard drink = 0.6 oz pur e alcohol) 2 drinks/ week Sex and Gender Information Value Date Recorded Sex Assigned at Male 09/20/2020 8:37 AM CDT Gender Identity Male 09/20/2020 8:37 AM CDT Sexual Orientation Straight 09/20/2020 8: 37 AM CDT documented as of this encounter Miscellaneous Notes * Telephone Encounter - Liliana Nolasco - 07/02/2009 1:[address] Carson, Pharmacy would like clarification on directions and qty for Topamax. How many tabs per day? Liliana Nolasco RN * Telephone Encounter - Amanda Cunningham - 07/02/2009 10:11 AM CDT Last OV: 06/18/2009 Reason for visit: mood disorder- [place] RTC instructions: none Last filled: 03/09/2009 Luis Cunningham RN * Telephone Encounter - Amanda Cunningham - 07/02/2009 10:07 AM [facility] Mauro Terrell would like a refill of the following medications: TOPAMAX 25 MG OR TABS [Dixon Carson MD] Preferred pharmacy: [facility] Comment: documented in this encounter Plan of Treatment Not on file documented as of this encounter Visit Diagnoses Diagnosis Migraine headaches- Primary Migraine, unspecified, without mention of intractable migraine without mention of status migrainosus documented in this encounter Additional Health Concerns Infection Onset Date Last Indicated Resolved Time Rule Out COVID-19 02/15/2020 02/15/2020 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 Rule Out COVID-19 01/05/2021 01/05/2021 01/06/2021 12:57 PM CDT ESBL 01/05/2021 01/05/2021 Rule Out COVID-19 06/30/2021 06/30/2021 07/01/2021 9:34 AM CDT Rule Out COVID-19 07/25/2021 07/25/2021 07/25/2021 8:02 PM CDT documented as of this encounter Care Teams Stroke Coordinator Relationship Specialty Start Date End Date Dixon Carson MD PCP - General 08/10/03 07/21/09 Mingo Aldana MD PCP - General Family Practice 07/22/09 07/12/14 Shahida Sutton APRN FUEL SYSTEM MAINTENANCE SUPERVISOR PCP - General Nurse Practitioner 08/17/14 08/04/21 Shahida Sutton APRN FUEL SYSTEM MAINTENANCE SUPERVISOR PCP - Assigned PCP 07/12/14 05/07/18 Paula Reza MD [address] [facility] 200 [place] [address] PCP - General Internal Medicine 08/05/21 Shahida Sutton APRN FUEL SYSTEM MAINTENANCE SUPERVISOR Assigned PCP 07/12/14 09/30/21 Carolynn Ramon, KASIE Personal Advocate & Liaison (PAL) 12/17/18 08/07/21 [place] [address] [facility] 300 [place] [address] Assigned Musculoskeletal Provider 12/26/19 08/21/20 Brady Lion MD Assigned Heart and Vascular Provider 12/26/19 08/14/20 Nima France PA-C [address] [facility] [address] [place] [address] Assigned Surgical Provider 05/19/20 08/21/20 Camille Chandler PA-C [address] [facility] [address] [place] [address] Assigned Neuroscience Provider 05/19/20 09/14/20 Anabela Barakat APRN FUEL SYSTEM MAINTENANCE SUPERVISOR 17[address] [place] [address] Assigned Heart and Vascular Provider 08/15/20 08/05/21 Nima France PA-C [address] [place] [address] Assigned Musculoskeletal Provider 08/22/20 11/13/20 [place] [address] [facility] [place] [address] Assigned Musculoskeletal Provider 11/14/20 12/04/20 Fawad York MD [address] [place], [place] [address] Assigned Musculoskeletal Provider 12/05/20 02/05/21 Roopa Almonte MD [address] [facility] [address] [place] [address] Endocrinology, Diabetes, and Metabolism 01/19/21 [place] [address] [facility] [address] [place] [address] Assigned Musculoskeletal Provider 02/06/21 09/16/21 Maryse Burton PA-C [address] [place] [address] Physician Direct Care Worker Dermatology 04/14/21 Marquita Starkey MD [address] [place] [address] Internal Medicine 05/06/21 05/06/21 Roopa Almonte MD [address] [place] [address] Hospitalist Endocrinology, Diabetes, and Metabolism 05/30/21 Griffin Joshi MD [address] [facility] [address] [place] [address] Cardiovascular Disease 07/25/21 Rina Magallon, RN Lead Analysis Consultant 07/29/21 07/11/22 Griffin Joshi MD [address] [facility] [address] [place] [address] Assigned Heart and Vascular Provider 08/06/21 10/07/21 Roopa Almonte MD [address] [place] [address] 200 [place], [place] [address] Assigned Endocrinology Provider 09/10/21 [place] [address] [facility] [place] [address] Assigned Musculoskeletal Provider 09/17/21 10/14/21 Lydia Bernstein PA-C [address] [facility] [address] [place] [address] Assigned PCP 10/01/21 10/21/21 Rosa Maria Love [facility] Community Health Worker 10/06/21 [place] [address] [facility] [address] [place] [address] Assigned Musculoskeletal Provider 10/15/21 04/26/23 Paula Reza MD [address] [facility] [address] [place] [address] Assigned PCP 10/22/21 12/23/21 Keerthi Miner APRN FUEL SYSTEM MAINTENANCE SUPERVISOR [address] [place] [address] Assigned Heart and Vascular Provider 10/08/21 02/10/22 Shahida Sutton APRN FUEL SYSTEM MAINTENANCE SUPERVISOR Assigned PCP 12/24/21 03/24/22 Porsha Michaels SOLUTION DESIGN ENGINEER FUEL SYSTEM MAINTENANCE SUPERVISOR [address] [place] [address] Assigned Heart and Vascular Provider 02/11/22 05/12/22 Paula Reza MD [address] [facility] 200 [place] [address] Assigned PCP 03/25/22 04/07/22 Shahida Sutton APRN FUEL SYSTEM MAINTENANCE SUPERVISOR [address] [place] [address] Assigned PCP 04/08/22 06/30/22 Dalyin Ludwig EP [facility] [address] [place] [address] Cardiac Rehabilitation Therapist 05/16/23 Laurel Velasquez MD [address] [place] [address] Assigned Heart and Vascular Provider 05/13/22 06/30/22 Daylin Ludwig EP [facility] [address] [place] [address] Cardiac Rehabilitation Therapist 06/08/22 06/09/23 Paula Reza MD [address] [place], [place] [address] Assigned PCP 07/01/22 07/07/22 Porsha Michaels APRN FUEL SYSTEM MAINTENANCE SUPERVISOR [address] [place] [address] Assigned Heart and Vascular Provider 07/01/22 07/07/22 Laurel Velasquez MD [address] [place], [place] [address] Assigned Heart and Vascular Provider 07/08/22 08/04/22 Shahida Sutton APRN FUEL SYSTEM MAINTENANCE SUPERVISOR Assigned PCP 07/08/22 09/08/22 Marilin Montaño, FUEL SYSTEM MAINTENANCE SUPERVISOR [address] [place] [address] Assigned Heart and Vascular Provider 08/05/22 Esha Dewitt MD [address] [place] [address] Gastroenterology 09/06/22 Heather Mosquera MD [address] [place] [address] Internal Medicine 09/06/22 Paula Reza MD [address] [place], [place] [address] Assigned PCP 09/09/22 01/05/23 Esha Dewitt MD [address] [place] [address] Assigned Gastroenterology Provider 09/23/22 Valdo Escamlila PA-C 6363 [facility] [address] [place] [address] Assigned Neuroscience Provider 09/30/22 Nohelia Abarca PA-C [address] [place], [place] [address] Physician Direct Care Worker Gastroenterology 10/03/22 Heather Mosquera MD 6545 [facility] 150 [place] [address] Assigned PCP 01/06/23 Fawad York MD [address] [place], [place] [address] Assigned Musculoskeletal Provider 04/27/23 06/25/23 documented as of this encounter
--- OUTSIDE RECORDS SUMMARY | 2023-09-18 13:55 | XMS_ITS | Encounter Summary ---
Author Organization [facility] Address [address] [place] [address] Care Team Providers Care Data Analyst Etl Developer Name Role Phone Dixon Carson MD Primary Care Provider Mingo Aldana MD Primary Car e Provider Shahida Sutton CRYSTAL GAZER MICROFICHE CAMERA OPERATOR Primary Care Provi ford Unavailable Herman, Shahida Cummings APRN MICROFICHE CAMERA OPERATOR Unavailable Un available Herman, Shahida Cummings APRN MICROFICHE CAMERA OPERATOR Unavailable Un available Carolynn Ramon RN Unavailable [phone] Augustine Callaway MD Unavailable Brady Lion MD Unavailable Un available Nima FranceC Unavailable [phone] Camille Chandler PA-C Unavailable [phone] Anabela Barakat APRN MICROFICHE CAMERA OPERATOR Unavailable Nima FranceC Unavailable [phone] Basilio Morillo DO Unavailable [phone] Fawad York MD Unavailable [phone] Roopa Almonte MD Unavailable [phone] Augustine Callaway MD Unavailable Maryse Burton PA-C Unavailable Marquita Starkey MD Unavailable Roopa Almonte MD Unavailable [phone] Griffin Joshi MD Unavailable Rina Magallon RN Unavailable Paula Reza MD Primary Care Provider [phone] Griffin Joshi MD Unavailable Roopa Almonte MD Unavailable Willeleanor slater hospitalBasilio win DO Unavailable Lydia Bernstein PA-C Unavailable Rosa Maria Love Unavailable [phone] Augustine Callaway MD Unavailable Paula Reza MD Unavailable Keerthi Miner APRN MICROFICHE CAMERA OPERATOR Unavailable Herman, Shahida Cummings APRN MICROFICHE CAMERA OPERATOR Unavailable Un available Porsha Michaels APRN MICROFICHE CAMERA OPERATOR Unavailable [phone] Paula Reza MD Unavailable Herman, Shahida Cummings APRN MICROFICHE CAMERA OPERATOR Unavailable Un available Daylin Ludwig Unavailable [phone] Laurel Velasquez MD Unavailable Daylin Ludwig Unavailable [phone] Paula Reza MD Unavailable Porsha Michaels APRN MICROFICHE CAMERA OPERATOR Unavailable [phone] Laurel Velasquez MD Unavailable Herman, Shahida Cummings APRN MICROFICHE CAMERA OPERATOR Unavailable Un available Marilin Montaño MICROFICHE CAMERA OPERATOR Unavailable Esha Dewitt MD Unavailable [phone] Heather Mosquera MD Unavailable [phone] Paula Reza MD Unavailable Esha Dewitt MD Unavailable [phone] AyseValdo cabrera Deo WEBB Unavailable Nohelia Abarca PA-C Unavailable [phone] Heather Mosquera MD Unavailable Fawad York MD Unavailable Reason for Visit * Reason Onset Date Comments Refill Request 02/14/2008 diazepam Encounter Details Date Type Department Care Team (Late st Contact Info) Description 02/14/2008 [facility] [address] [address] Dixon Carson MD [address] [address] Refill Request (diazepam) Social History Tobacco Use Types Packs/Day Years [...] encounter Miscellaneous Notes * Telephone Encounter - Bijal Noel - 02/14/2008 12:59 PM CST See below ICAL MEDICINE PHYSICIAN * Telephone Encounter - Ratna Lambert - 02/14/2008 12:39 PM CST Date of last OV: 12/30/07 Reason for visit: lumbago Date last filled: per epic 12/30/07 #24 Labs pertaining to med: none ,Unable to approve per standing orders, routed to provider. Ratna Lambert RN ICAL MEDICINE PHYSICIAN * Telephone Encounter - Ratna Lambert - 02/14/2008 12:38 PM CSTMessage from MyChart: Original authorizing provider: Dixon Terrell would like a refill of the following medications: DIAZEPAM 5 MG OR TABS [Dixon Carson MD] Preferred pharmacy: [facility] [place] Comment: occasional back flare-ups, less than before, but still periodically somewhat dibilitating ICAL MEDICINE PHYSICIAN documented in this encounter Plan of Treatment Not on file documented as of this encounter Visit Diagnoses Diagnosis Lumbago documented in this encounter Additional Health Concerns Infection Onset Date Last Indicated Resolved Time Rule Out COVID-19 02/15/2020 02/15/2020 02/16/2020 2:32 PM PHYSICAL MEDICINE PHYSICIAN Rule Out COVID-19 01/05/2021 01/05/2021 01/06/2021 12:57 PM CDT ESBL 01/05/2021 01/05/2021 Rule Out COVID-19 06/30/2021 06/30/2021 07/01/2021 9:34 AM CDT Rule Out COVID-19 07/25/2021 07/25/2021 07/25/2021 8:02 PM CDT documented as of this encounter Care Teams Data Analyst Etl Developer Relationship Specialty Start Date End Date Dixon Carson MD PCP - General 08/10/03 07/21/09 Mingo Aldana MD PCP - General Family Practice 07/22/09 07/12/14 Shahida Sutton APRN MICROFICHE CAMERA OPERATOR PCP - General Nurse Practitioner 08/17/14 08/04/21 Shahida Sutton APRN MICROFICHE CAMERA OPERATOR PCP - Assigned PCP 07/12/14 05/07/18 Paula Reza MD [address] [facility] [address] [place] [address] PCP - General Internal Medicine 08/05/21 Shahida Sutton APRN MICROFICHE CAMERA OPERATOR Assigned PCP 07/12/14 09/30/21 Carolynn Ramon, KASIE Personal Advocate & Liaison (PAL) 12/17/18 08/07/21 [place] [address] [place] [address] Assigned Musculoskeletal Provider 12/26/19 08/21/20 Brady Lion MD Assigned Heart and Vascular Provider 12/26/19 08/14/20 Nima France PA-C [address] [facility] [address] [place] [address] Assigned Surgical Provider 05/19/20 08/21/20 Camille Chandler PA-C [address] [facility] [address] [place] [address] Assigned Neuroscience Provider 05/19/20 09/14/20 Anabela Barakat APRN MICROFICHE CAMERA OPERATOR [address] [place] [address] Assigned Heart and Vascular Provider 08/15/20 08/05/21 Nima France PA-C [address] [place] [address] Assigned Musculoskeletal Provider 08/22/20 11/13/20 Ilia Basilio Naik [address] [facility] [place] [address] Assigned Musculoskeletal Provider 11/14/20 12/04/20 Fawad York MD [address] [place], [place] [address] Assigned Musculoskeletal Provider 12/05/20 02/05/21 Roopa Almonte MD [address] [facility] [address] [place] [address] Endocrinology, Diabetes, and Metabolism 01/19/21 [place] [address] [facility] [address] [place] [address] Assigned Musculoskeletal Provider 02/06/21 09/16/21 Maryse uBrton PAAna MariaC [address] [place] [address] Physician Physics Professor Dermatology 04/14/21 Marquita Starkey MD [address] [place] [address] Internal Medicine 05/06/21 05/06/21 Roopa Almonte MD [address] [place] [address] Hospitalist Endocrinology, Diabetes, and Metabolism 05/30/21 Griffin Joshi MD [address] [facility] [address] [place] [address] Cardiovascular Disease 07/25/21 Rina Magallon, RN Lead Supervisor Bridges And Buildings 07/29/21 07/11/22 Griffin Joshi MD [address] [facility] [address] [place] [address] Assigned Heart and Vascular Provider 08/06/21 10/07/21 Roopa Almonte MD [address] [facility] [address] [place], [place] [address] Assigned Endocrinology Provider 09/10/21 [place] [address] [facility] [place] [address] Assigned Musculoskeletal Provider 09/17/21 10/14/21 Lydia Bernstein PA-C [address] [facility] [address] [place] [address] Assigned PCP 10/01/21 10/21/21 Rosa Maria Love CHW Community Health Worker 10/06/21 [place] [address] [facility] [address] [place] [address] Assigned Musculoskeletal Provider 10/15/21 04/26/23 Paula Reza MD [address] [facility] [address] [place] [address] Assigned PCP 10/22/21 12/23/21 Keerthi Miner CRYSTAL GAZER MICROFICHE CAMERA OPERATOR [address] [place] [address] Assigned Heart and Vascular Provider 10/08/21 02/10/22 Shahida Sutton APRN MICROFICHE CAMERA OPERATOR Assigned PCP 12/24/21 03/24/22 Porsha Michaels APRN MICROFICHE CAMERA OPERATOR [address] [place] [address] Assigned Heart and Vascular Provider 02/11/22 05/12/22 Paula Reza MD [address] [facility] 200 [place] [address] Assigned PCP 03/25/22 04/07/22 Shahida Sutton APRN MICROFICHE CAMERA OPERATOR [address] [place] [address] Assigned PCP 04/08/22 06/30/22 Daylin Ludwig EP [facility] [address] [place] [address] Cardiac Rehabilitation Therapist 05/16/23 Laurel Velasquez MD [address] [place] [address] Assigned Heart and Vascular Provider 05/13/22 06/30/22 Daylin Ludwig EP [facility] [address] [place] [address] Cardiac Rehabilitation Therapist 06/08/22 06/09/23 Paula Reza MD [address] [place] [address] Assigned PCP 07/01/22 07/07/22 Porsha Michaels APRN MICROFICHE CAMERA OPERATOR [address] [place] [address] Assigned Heart and Vascular Provider 07/01/22 07/07/22 Laurel Velasquez MD [address] [place] [address] Assigned Heart and Vascular Provider 07/08/22 08/04/22 Shahida Sutton APRN MICROFICHE CAMERA OPERATOR Assigned PCP 07/08/22 09/08/22 Marilin Montaño MICROFICHE CAMERA OPERATOR [address] [place] [address] Assigned Heart and Vascular Provider 08/05/22 Esha Dewitt MD [address] [place] [address] Gastroenterology 09/06/22 Heather Mosquera MD [address] [place] [address] Internal Medicine 09/06/22 Paula Reza MD [address] [place], [place] [address] Assigned PCP 09/09/22 01/05/23 Esha Dewitt MD [address] [place] [address] Assigned Gastroenterology Provider 09/23/22 Valdo Escamilla PA-C [address] [facility] [address] [place] [address] Assigned Neuroscience Provider 09/30/22 Nohelia Abarca PA-C [address] [place], [place] [address] Physician Physics Professor Gastroenterology 10/03/22 Heather Mosquera MD [address] [facility] [address] [place], [place] [address] Assigned PCP 01/06/23 Fawad [place] MD [address] [place], [place] [address] Assigned Musculoskeletal Provider 04/27/23 06/25/23 documented as of this encounter
--- OUTSIDE RECORDS SUMMARY | 2023-09-18 13:55 | XMS_ITS | Encounter Summary ---
Author Organization [facility] Address [address] [place] [address] Care Team Providers Care Custom Shoemaker Name Role Phone Dixon Carson MD Primary Care Provider Mingo Aldana MD Primary Car e Provider Shahida Sutton WAREHOUSE PICKER APPLIANCE TECHNICIAN Primary Care Provi ford Unavailable Herman, Shahida Cummings APRN APPLIANCE TECHNICIAN Unavailable Un available Herman, Shahida Cummings APRN APPLIANCE TECHNICIAN Unavailable Un available Carolynn Ramon RN Unavailable [phone] Augustine Callaway MD Unavailable Brady Lion MD Unavailable Un available Nima FranceC Unavailable [phone] Camille Chandler PA-C Unavailable [phone] Anabela Barakat APRN APPLIANCE TECHNICIAN Unavailable Nima FranceC Unavailable [phone] Basilio Morillo DO Unavailable [phone] Fawad York MD Unavailable [phone] Roopa Almonte MD Unavailable [phone] Augustine Callaway MD Unavailable Maryse Burton PA-C Unavailable Marquita Starkey MD Unavailable Roopa Almonte MD Unavailable [phone] Griffin Joshi MD Unavailable Rina Magallon RN Unavailable Paula Reza MD Primary Care Provider [phone] Griffin Joshi MD Unavailable Roopa Almonte MD Unavailable [facility] hospital[facility]ilio win DO Unavailable Lydia Bernstein PA-C Unavailable Rosa Maria Love Unavailable [phone] Augustine Callaway MD Unavailable Paula Reza MD Unavailable Keerthi Miner APRN APPLIANCE TECHNICIAN Unavailable Herman, Shahida Cummings APRN APPLIANCE TECHNICIAN Unavailable Un available Porsha Michaels APRN APPLIANCE TECHNICIAN Unavailable [phone] Paula Reza MD Unavailable Herman, Shahida Cummings APRN APPLIANCE TECHNICIAN Unavailable Un available Daylin Ludwig Unavailable [phone] Laurel Velasquez MD Unavailable Daylin Ludwig Unavailable [phone] Paula Reza MD Unavailable Porsha Michaels APRN APPLIANCE TECHNICIAN Unavailable [phone] Laurel Velasquez MD Unavailable Herman, Shahida Cummings APRN APPLIANCE TECHNICIAN Unavailable Un available Marilin Montaño APPLIANCE TECHNICIAN Unavailable Esha Dewitt MD Unavailable [phone] Heather Mosquera MD Unavailable Paula Reza MD Unavailable Esha Dewitt MD Unavailable [phone] Valdo Escamilla PA-C Unavailable Nohelia Abarca PA-C Unavailable [phone] Heather Mosquera MD Unavailable Fawad York MD Unavailable Reason for Visit * Reason Onset Date Comments Pt. Information/instruction 11/12/2008 Rece nt discussion with Dr. Walker Encounter Details Date Type Department Care Team (Late st Contact Info) Description 11/12/2008 [facility] [address] [address] Dixon Carson MD [address] [id number] Pt. Information/instruct ion (Recent discus... Social History Tobacco Use Types Packs/Day Years [...] Out COVID-19 02/15/2020 02/15/2020 02/16/2020 2:32 PM METEOROLOGICAL ENGINEER Rule Out COVID-19 01/05/2021 01/05/2021 01/06/2021 12:57 PM CDT ESBL 01/05/2021 01/05/2021 Rule Out COVID-19 06/30/2021 06/30/2021 07/01/2021 9:34 AM CDT Rule Out COVID-19 07/25/2021 07/25/2021 07/25/2021 8:02 PM CDT documented as of this encounter Care Teams Custom Shoemaker Relationship Specialty Start Date End Date Dixon Carson MD PCP - General 08/10/03 07/21/09 Mingo Aldana MD PCP - General Family Practice 07/22/09 07/12/14 Shahida Sutton APRN APPLIANCE TECHNICIAN PCP - General Nurse Practitioner 08/17/14 08/04/21 Shahida Sutton APRN APPLIANCE TECHNICIAN PCP - Assigned PCP 07/12/14 05/07/18 Paula Reza MD [address] [facility] 200 [place] [address] PCP - General Internal Medicine 08/05/21 Shahida Sutton APRN APPLIANCE TECHNICIAN Assigned PCP 07/12/14 09/30/21 Carolynn Ramon, KASIE Personal Advocate & Liaison (PAL) 12/17/18 08/07/21 [place] [address] [place] [address] Assigned Musculoskeletal Provider 12/26/19 08/21/20 Brady Lion MD Assigned Heart and Vascular Provider 12/26/19 08/14/20 Nima France PA-C [address] [facility] [address] [place] [address] Assigned Surgical Provider 05/19/20 08/21/20 Camille Chandler PA-C [address] [facility] [address] [place] [address] Assigned Neuroscience Provider 05/19/20 09/14/20 Anabela Barakat APRN APPLIANCE TECHNICIAN [address] [place] [address] Assigned Heart and Vascular Provider 08/15/20 08/05/21 Nima France PA-C [address] [facility] [address] [place] [address] Assigned Musculoskeletal Provider 08/22/20 11/13/20 [place] [address] [place] [address] Assigned Musculoskeletal Provider 11/14/20 12/04/20 Fawad [place] MD [address] [place] [address] Assigned Musculoskeletal Provider 12/05/20 02/05/21 Roopa Almonte MD [address] [facility] 200 [place] [address] Endocrinology, Diabetes, and Metabolism 01/19/21 [place] [address] [facility] [address] [place] [address] Assigned Musculoskeletal Provider 02/06/21 09/16/21 Maryse Burton PA-C [address] [facility] [place] [address] Physician Wind Turbine Blade Repair Technician Dermatology 04/14/21 Marquita Starkey MD [address] [facility] 200 [place] [address] Internal Medicine 05/06/21 05/06/21 Roopa Almonte MD [address] [facility] 200 [place] [address] Hospitalist Endocrinology, Diabetes, and Metabolism 05/30/21 Griffin Joshi MD [address] [facility] [address] [place] [address] Cardiovascular Disease 07/25/21 Rina Magallon, RN Lead Robotic Machine Tender Production 07/29/21 07/11/22 Griffin Joshi MD [address] [facility] [place] [address] Assigned Heart and Vascular Provider 08/06/21 10/07/21 Roopa Almonte MD [address] [facility] 200 [place], [place] [address] Assigned Endocrinology Provider 09/10/21 [place] [address] [facility] [place] [address] Assigned Musculoskeletal Provider 09/17/21 10/14/21 Lydia Bernstein PA-C [address] [place] [address] Assigned PCP 10/01/21 10/21/21 Rosa Maria Love Cristina Community Health Worker 10/06/21 [place] [address] [place], [place] [address] Assigned Musculoskeletal Provider 10/15/21 04/26/23 Paula Reza MD [address] [facility] 200 [place] [address] Assigned PCP 10/22/21 12/23/21 Keerthi Miner APRN APPLIANCE TECHNICIAN [address] [place] [address] Assigned Heart and Vascular Provider 10/08/21 02/10/22 Shahida Sutton APRN APPLIANCE TECHNICIAN Assigned PCP 12/24/21 03/24/22 Porsha Michaels APRN APPLIANCE TECHNICIAN [address] [place] [address] Assigned Heart and Vascular Provider 02/11/22 05/12/22 Paula Reza MD [address] [facility] [address] [place] [address] Assigned PCP 03/25/22 04/07/22 Shahida Sutton APRN APPLIANCE TECHNICIAN [address] [place] [address] Assigned PCP 04/08/22 06/30/22 Daylin Ludwig, [facility] [address] [place] [address] Cardiac Rehabilitation Therapist 05/16/23 Laurel Velasquez MD [address] [place] [address] Assigned Heart and Vascular Provider 05/13/22 06/30/22 Daylin Ludwig, [facility] [address] [place] [address] Cardiac Rehabilitation Therapist 06/08/22 06/09/23 Paula Reza MD [address] [facility] 200 [place] [address] Assigned PCP 07/01/22 07/07/22 Porsha Michaels APRN APPLIANCE TECHNICIAN [address] [place] [address] Assigned Heart and Vascular Provider 07/01/22 07/07/22 Laurel Velasquez MD [address] [place] [address] Assigned Heart and Vascular Provider 07/08/22 08/04/22 Shahida Sutton APRN APPLIANCE TECHNICIAN Assigned PCP 07/08/22 09/08/22 Marilin Montaño, APPLIANCE TECHNICIAN [address] [place] [address] Assigned Heart and Vascular Provider 08/05/22 Esha Dewitt MD [address] [address] Gastroenterology 09/06/22 Heather Mosquera MD [address] [place], [place] [address] Internal Medicine 09/06/22 Paula Reza MD [address] [facility] [address] [place], [place] [address] Assigned PCP 09/09/22 01/05/23 Esha Dewitt MD [address] [address] Assigned Gastroenterology Provider 09/23/22 Valdo Escamilla PA-C [address] [facility] [address] [place], [place] [address] Assigned Neuroscience Provider 09/30/22 Nohelia Abarca PA-C [address] [place], [place] [address] Physician Wind Turbine Blade Repair Technician Gastroenterology 10/03/22 Heather Mosquera MD [address] [place], [place] [address] Assigned PCP 01/06/23 Fawad [place] MD [address] [place], [place] [address] Assigned Musculoskeletal Provider 04/27/23 06/25/23 documented as of this encounter
--- OUTSIDE RECORDS SUMMARY | 2023-09-18 13:55 | XMS_ITS | Encounter Summary ---
Author Organization [facility] Address [address] [place] [address] Care Team Providers Care Student Affairs Dean Name Role Phone Dixon Carson MD Primary Care Provider Mingo Aldana MD Primary Car e Provider Shahida Sutton SUPERVISOR POWER REACTOR ELECTRODE CLEANER Primary Care Provi ford Unavailable Herman, Shahida Cummings APRN ELECTRODE CLEANER Unavailable Un available Herman, Shahida Cummings APRN ELECTRODE CLEANER Unavailable Un available Carolynn Ramon RN Unavailable [phone] Augustine Callaway MD Unavailable Brady Lion MD Unavailable Un available Nima FranceC Unavailable [phone] Camille Chandler PA-C Unavailable [phone] Anabela Barakat APRN ELECTRODE CLEANER Unavailable Nima FranceC Unavailable [phone] Basilio Morillo DO Unavailable [phone] Fawad York MD Unavailable [phone] Roopa Almonte MD Unavailable [phone] Augustine Callaway MD Unavailable Maryse Burton PA-C Unavailable Marquita Starkey MD Unavailable Roopa Almonte MD Unavailable [phone] Griffin Joshi MD Unavailable Rina Magallon RN Unavailable Paula Reza MD Primary Care Provider [phone] Griffin Joshi MD Unavailable Roopa Almonte MD Unavailable [facility] DO Unavailable Lydia Bernstein PA-C Unavailable Rosa Maria Love Unavailable [phone] Augustine Callaway MD Unavailable Paula Reza MD Unavailable Keerthi Miner APRN ELECTRODE CLEANER Unavailable Herman, Shahida Cummings APRN ELECTRODE CLEANER Unavailable Un available Porsha Michaels APRN ELECTRODE CLEANER Unavailable [phone] Paula Reza MD Unavailable Herman, Shahida Cummings APRN ELECTRODE CLEANER Unavailable Un available Daylin Ludwig Unavailable [phone] Laurel Velasquez MD Unavailable Daylin Ludwig Unavailable [phone] Paula Reza MD Unavailable Porsha Michaels APRN ELECTRODE CLEANER Unavailable [phone] Laurel Velasquez MD Unavailable Herman, Shahida Cummings APRN ELECTRODE CLEANER Unavailable Un available Marilin Montaño ELECTRODE CLEANER Unavailable Esha Dewitt MD Unavailable [phone] Heather Mosquera MD Unavailable [phone] Paula Reza MD Unavailable Esha Dewitt MD Unavailable [phone] Valdo Escamilla PA-C Unavailable [phone] Nohelia AbarcaC Unavailable [phone] Heather Mosquera MD Unavailable [phone] Fawad York MD Unavailable [phone] Reason for Visit * Reason Onset Date Comments Refill Request 04/15/2008 Ambien Encounter Details Date Type Department Care Team (Late st Contact Info) Description 04/14/2008 MyC Refill [address] [address] Dixon Carson MD [address] [address] Refill Request (Rickie) Social History Tobacco Use Types Packs/Day Years [...] encounter Miscellaneous Notes * Telephone Encounter - Elizabeth Piña - 04/15/2008 8:16 AM CST Date of Last OV: 02/24/08 Reason for visit: DM Provider seen: [place] When advised to RTC: none Labs pertaining to med: none Last filled was 03/09/08 Elizabeth Piña RN PAINTER * Telephone Encounter - Elizabeth Piña - 04/15/2008 8:14 AM CSTMessage from MyChart: Original authorizing provider: Dixon Terrell would like a refill of the following medications: AMBIEN 10 MG OR TABS [Dixon Carson MD] Preferred pharmacy: [facility] 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 documented in this encounter Plan of Treatment Not on file documented as of this encounter Visit Diagnoses Diagnosis Insomnia with sleep apnea, unspecified documented in this encounter Additional Health Concerns Infection Onset Date Last Indicated Resolved Time Rule Out COVID-19 02/15/2020 02/15/2020 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 Rule Out COVID-19 01/05/2021 01/05/2021 01/06/2021 12:57 PM CDT ESBL 01/05/2021 01/05/2021 Rule Out COVID-19 06/30/2021 06/30/2021 07/01/2021 9:34 AM CDT Rule Out COVID-19 07/25/2021 07/25/2021 07/25/2021 8:02 PM CDT documented as of this encounter Care Teams Student Affairs Dean Relationship Specialty Start Date End Date Dixon Carson MD PCP - General 08/10/03 07/21/09 Mingo Aldana MD PCP - General Family Practice 07/22/09 07/12/14 Shahida Sutton APRN ELECTRODE CLEANER PCP - General Nurse Practitioner 08/17/14 08/04/21 Shahida Sutton APRN ELECTRODE CLEANER PCP - Assigned PCP 07/12/14 05/07/18 Paula Reza MD [address] [address] PCP - General Internal Medicine 08/05/21 Shahida Sutton APRN ELECTRODE CLEANER Assigned PCP 07/12/14 09/30/21 Carolynn Ramon RN Personal Advocate & Liaison (PAL) 12/17/18 08/07/21 [place] [address] [facility] [facility] [address] [place] [address] Assigned Musculoskeletal Provider 12/26/19 08/21/20 Brady Lion MD Assigned Heart and Vascular Provider 12/26/19 08/14/20 Nima France PA-C [address] [facility] [address] [place] [address] Assigned Surgical Provider 05/19/20 08/21/20 Camille Chandler PA-C [address] [facility] [address] [place] [address] Assigned Neuroscience Provider 05/19/20 09/14/20 Anabela Barakat APRN ELECTRODE CLEANER [address] [place] [address] Assigned Heart and Vascular Provider 08/15/20 08/05/21 Nima France PA-C [address] [facility] [address] [facility] [address] [place] [address] Assigned Musculoskeletal Provider 08/22/20 11/13/[address] [place] [address] [place] [address] Assigned Musculoskeletal Provider 11/14/20 12/04/20 Fawad York MD [address] [place] [address] Assigned Musculoskeletal Provider 12/05/20 02/05/21 Roopa Almonte MD [address] [facility] 200 [place] [address] Endocrinology, Diabetes, and Metabolism 01/19/21 [place] [address] [facility] [address] [place] [address] Assigned Musculoskeletal Provider 02/06/21 09/16/21 Maryse Burton PA-C [address] [place] [address] Physician General Education Professor Dermatology 04/14/21 Marquita Starkey MD [address] [facility] 200 [place] [address] Internal Medicine 05/06/21 05/06/21 Roopa Almonte MD [address] [facility] [address] [place] [address] Hospitalist Endocrinology, Diabetes, and Metabolism 05/30/21 Griffin Joshi MD [address] [facility] [address] [place] [address] Cardiovascular Disease 07/25/21 Rina Magallon, RN Lead Powder And Primer Canning Leader 07/29/21 07/11/22 Griffin Joshi MD [address] [place] [address] Assigned Heart and Vascular Provider 08/06/21 10/07/21 Roopa Almonte MD [address] 200 [place], [place] [address] Assigned Endocrinology Provider 09/10/21 [place] [address] [facility] [place] [address] Assigned Musculoskeletal Provider 09/17/21 10/14/21 Lydia Bernstein, HUYC [address] [place] [address] Assigned PCP 10/01/21 10/21/21 Rosa Maria Love Cristina Community Health Worker 10/06/21 [place] [address] [facility] [address] [place] [address] Assigned Musculoskeletal Provider 10/15/21 04/26/23 Paula Reza MD [address] [place] [address] Assigned PCP 10/22/21 12/23/21 Keerthi Miner APRN ELECTRODE CLEANER [address] [place] [address] Assigned Heart and Vascular Provider 10/08/21 02/10/22 Shahida Sutton APRN ELECTRODE CLEANER Assigned PCP 12/24/21 03/24/22 Porsha Michaels APRN ELECTRODE CLEANER [address] [place] [address] Assigned Heart and Vascular Provider 02/11/22 05/12/22 Paula Reza MD [address] [place] [address] Assigned PCP 03/25/22 04/07/22 Shahida Sutton APRN ELECTRODE CLEANER [address] [place] [address] Assigned PCP 04/08/22 06/30/22 Daylin Ludwig, EP [facility] [address] [place] [address] Cardiac Rehabilitation Therapist 05/16/23 Laurel Velasquez MD [address] [place] [address] Assigned Heart and Vascular Provider 05/13/22 06/30/22 Daylin Ludwig, EP [facility] [address] [place] [address] Cardiac Rehabilitation Therapist 06/08/22 06/09/23 Paula Reza MD [address] [place] [address] Assigned PCP 07/01/22 07/07/22 Porsha Michaels APRN ELECTRODE CLEANER [address] [place] [address] Assigned Heart and Vascular Provider 07/01/22 07/07/22 Laurel Velasquez MD [address] [place] [address] Assigned Heart and Vascular Provider 07/08/22 08/04/22 Shahida Sutton APRN ELECTRODE CLEANER Assigned PCP 07/08/22 09/08/22 Marilin Montaño, ELECTRODE CLEANER [address] [place] [address] Assigned Heart and Vascular Provider 08/05/22 Esha Dewitt MD [address] [facility] 36 [place], [place] [address] Gastroenterology 09/06/22 Heather Mosquera MD [address] [place] [address] Internal Medicine 09/06/22 Paula Reza MD [address] [facility] [address] [place] [address] Assigned PCP 09/09/22 01/05/23 Esha Dewitt MD [address] [facility] 36 [place], [place] [address] Assigned Gastroenterology Provider 09/23/22 Valdo Escamilla PA-C [address] [place] [address] Assigned Neuroscience Provider 09/30/22 Nohelia Abarca PA-C [address] [place] [address] Physician General Education Professor Gastroenterology 10/03/22 Heather Mosquera MD [address] [facility] [address] [place], [place] [address] Assigned PCP 01/06/23 Fawad York MD [address] [place], [place] [address] Assigned Musculoskeletal Provider 04/27/23 06/25/23 documented as of this encounter
--- OUTSIDE RECORDS SUMMARY | 2023-09-18 13:55 | XMS_ITS | Encounter Summary ---
Author Organization [facility] Address [address] [place] [address] Care Team Providers Care Dials Inspector Name Role Phone Dixon Carson MD Primary Care Provider Mingo Aldana MD Primary Car e Provider Shahida Sutton UTILIZATION MANAGER SYSTEM SPECIALIST Primary Care Provi ford Unavailable Herman, Shahida Cummings APRN SYSTEM SPECIALIST Unavailable Un available Herman, Shahida Cummings APRN SYSTEM SPECIALIST Unavailable Un available Carolynn Ramon RN Unavailable [phone] Augustine Callaway MD Unavailable Brady Lion MD Unavailable Un available Nima FranceC Unavailable [phone] Camille Chandler PA-C Unavailable [phone] Anabela Barakat APRN SYSTEM SPECIALIST Unavailable Nima FranceC Unavailable [phone] Basilio Morillo DO Unavailable [phone] Fawad York MD Unavailable [phone] Roopa Almonte MD Unavailable [phone] Augustine Callaway MD Unavailable Maryse Burton PA-C Unavailable Marquita Starkey MD Unavailable Roopa Almonte MD Unavailable [phone] Griffin Joshi MD Unavailable Rina Magallon RN Unavailable Paula Reza MD Primary Care Provider [phone] Griffin Joshi MD Unavailable Roopa Almonte MD Unavailable [facility] win DO Unavailable Lydia Bernstein PA-C Unavailable Rosa Maria Love Unavailable [phone] Augustine Callaway MD Unavailable Paula Reza MD Unavailable Keerthi Miner APRN SYSTEM SPECIALIST Unavailable Herman, Shahida Cummings APRN SYSTEM SPECIALIST Unavailable Un available Porsha Michaels APRN SYSTEM SPECIALIST Unavailable [phone] Paula Reza MD Unavailable Herman, Shahida Cummings APRN SYSTEM SPECIALIST Unavailable Un available Daylin Ludwig Unavailable [phone] Laurel Velasquez MD Unavailable Daylin Ludwig Unavailable [phone] Paula Reza MD Unavailable Porsha Michaels APRN SYSTEM SPECIALIST Unavailable [phone] Laurel Velasquez MD Unavailable Herman, Shahida Cummings APRN SYSTEM SPECIALIST Unavailable Un available Marilin Montaño SYSTEM SPECIALIST Unavailable [phone] Esha Dewitt MD Unavailable [phone] Heather Mosquera MD Unavailable Paula Reza MD Unavailable Esha Dewitt MD Unavailable [phone] Andi Valdo Desouza PA-C Unavailable [phone] Nohelia AbarcaC Unavailable [phone] Heather Mosquera MD Unavailable [phone] Fawad York MD Unavailable [phone] Encounter Details Date Type Department Care Team (Late st Contact Info) Description 12/24/2008 MyC Medical Advice Initial Department Maximiliano Herrmann DIABETES UNCOMPL ADULT-TYPE II (Primary Dx) Social History Tobacco Use Types Packs/Day Years [...] encounter Miscellaneous Notes * Telephone Encounter - Dixon Carson - 12/24/2008 5:23 PM CDT rxd * Telephone Encounter - Tatum Marley - 12/24/2008 11:15 AM CDT Message from Patient: Yes, I imagine I should start on cholesterol medications, though my only question is what degree ofconsultation do I need. but if its something I can start at once, please submit to [facility]. I can be contact by phone at [phone] Please rx medications, pharmacy t'd up. Please notify patient when done. Either mychart or via phone. Re-route to [facility] when [place] is done. Thank you. Porsha Marley TUNNEL ELASTIC OPERATOR ZIGZAG documented in this encounter Plan of Treatment Not on file documented as of this encounter Visit Diagnoses Diagnosis DIABETES UNCOMPL ADULT-TYPE II- Primary Type II or unspecified type diabetes mellitus without mention of complication, not stated as uncontrolled documented in this encounter Additional Health Concerns Infection Onset Date Last Indicated Resolved Time Rule Out COVID-19 02/15/2020 02/15/2020 02/16/2020 2:32 PM [facility]EARCH [employer]OC Rule Out COVID-19 01/05/2021 01/05/2021 01/06/2021 12:57 PM CDT ESBL 01/05/2021 01/05/2021 Rule Out COVID-19 06/30/2021 06/30/2021 07/01/2021 9:34 AM CDT Rule Out COVID-19 07/25/2021 07/25/2021 07/25/2021 8:02 PM CDT documented as of this encounter Care Teams Dials Inspector Relationship Specialty Start Date End Date Dixon Carson MD PCP - General 08/10/03 07/21/09 Mingo Aldana MD PCP - General Family Practice 07/22/09 07/12/14 Shahida Sutton APRN SYSTEM SPECIALIST PCP - General Nurse Practitioner 08/17/14 08/04/21 Shahida Sutton APRN SYSTEM SPECIALIST PCP - Assigned PCP 07/12/14 05/07/18 Paula Reza MD [address] [address] PCP - General Internal Medicine 08/05/21 Shahida Sutton APRN SYSTEM SPECIALIST Assigned PCP 07/12/14 09/30/21 Carolynn Ramon, KASIE Personal Advocate & Liaison (PAL) 12/17/18 08/07/21 [place] [address] [place] [address] Assigned Musculoskeletal Provider 12/26/19 08/21/20 Brady Lion MD Assigned Heart and Vascular Provider 12/26/19 08/14/20 Nima France PA-C [address] [place] [address] Assigned Surgical Provider 05/19/20 08/21/20 Camille Chandler PA-C [address] [facility] [address] [place] [address] Assigned Neuroscience Provider 05/19/20 09/14/20 Anabela Barakat APRN CNP [address] [place] [address] Assigned Heart and Vascular Provider 08/15/20 08/05/21 Nima France PA-C [address] [facility] [address] [place], [place] [address] Assigned Musculoskeletal Provider 08/22/20 11/13/20 [place] [address] [facility] [place] [address] Assigned Musculoskeletal Provider 11/14/20 12/04/20 Fawad York MD [address] [place] [address] Assigned Musculoskeletal Provider 12/05/20 02/05/21 Roopa Almonte MD [address] [facility] 200 [place] [address] Endocrinology, Diabetes, and Metabolism 01/19/21 [place] [address] [facility] 300 [place] [address] Assigned Musculoskeletal Provider 02/06/21 09/16/21 Maryse Burton PA-C [address] [place] [address] Physician Naval Aircre[employer] Mechanical Dermatology 04/14/21 Marquita Starkey MD [address] [facility] 200 [place] [address] Internal Medicine 05/06/21 05/06/21 Roopa Almonte MD [address] [facility] [address] [place] [address] Hospitalist Endocrinology, Diabetes, and Metabolism 05/30/21 Griffin Joshi MD [address] [place] [address] Cardiovascular Disease 07/25/21 Rina Magallon, RN Lead Tape Folding 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 07/29/21 07/11/22 Griffin Joshi MD [address] [place] [address] Assigned Heart and Vascular Provider 08/06/21 10/07/21 Roopa Almonte MD [address] [place] [address] 200 [place] [address] Assigned Endocrinology Provider 09/10/21 [place] [address] [facility] [place] [address] Assigned Musculoskeletal Provider 09/17/21 10/14/21 Lydia Bernstein PA-C [address] [place] [address] Assigned PCP 10/01/21 10/21/21 Rosa Maria Love [facility] Community Health Worker 10/06/21 [place] [address] [facility] [address] [place], [place] [address] Assigned Musculoskeletal Provider 10/15/21 04/26/23 Paula Reza MD [address] [facility] [address] [place], [place] [address] Assigned PCP 10/22/21 12/23/21 Keerthi Miner APRN SYSTEM SPECIALIST [address] [place] [address] Assigned Heart and Vascular Provider 10/08/21 02/10/22 Shahida Sutton APRN SYSTEM SPECIALIST Assigned PCP 12/24/21 03/24/22 Porsha Michaels APRN SYSTEM SPECIALIST [address] [place] [address] Assigned Heart and Vascular Provider 02/11/22 05/12/22 Paula Reza MD [address] [place], [place] [address] Assigned PCP 03/25/22 04/07/22 Shahida Sutton APRN SYSTEM SPECIALIST [address] [place] [address] Assigned PCP 04/08/22 06/30/22 Daylin Ludwig EP [facility] [address] [place] [address] Cardiac Rehabilitation Therapist 05/16/23 Laurel Velasquez MD [address] [place] [address] Assigned Heart and Vascular Provider 05/13/22 06/30/22 Daylin Ludwig, MIKI [facility] [address] [place] [address] Cardiac Rehabilitation Therapist 06/08/22 06/09/23 Paula Reza MD [address] [place], [place] [address] Assigned PCP 07/01/22 07/07/22 Porsha Michaels APRN SYSTEM SPECIALIST [address] [place] [address] Assigned Heart and Vascular Provider 07/01/22 07/07/22 Laurel Velasquez MD [address] [place], [place] [address] Assigned Heart and Vascular Provider 07/08/22 08/04/22 Shahida Sutton UTILIZATION MANAGER SYSTEM SPECIALIST Assigned PCP 07/08/22 09/08/22 Marilin Montaño, SYSTEM SPECIALIST [address] [place] [address] Assigned Heart and Vascular Provider 08/05/22 Esha Dewitt MD [address] [address] Gastroenterology 09/06/22 Heather Mosquera MD [address] [place] [address] Internal Medicine 09/06/22 Paula Reza MD [address] [facility] 200 [place] [address] Assigned PCP 09/09/22 01/05/23 Esha Dewitt MD [address] [place] [address] Assigned Gastroenterology Provider 09/23/22 Valdo Escamilla PA-C [address] [facility] [address] [place] [address] Assigned Neuroscience Provider 09/30/22 Nohelia Abarca PA-C [address] [place], [place] [address] Physician Naval [employer] Mechanical Gastroenterology 10/03/22 Heather Mosquera MD [address] [address] Assigned PCP 01/06/23 Fawad York MD [address] [place], [place] [address] Assigned Musculoskeletal Provider 04/27/23 06/25/23 documented as of this encounter
--- OUTSIDE RECORDS SUMMARY | 2023-09-18 13:55 | XMS_ITS | Encounter Summary ---
Author Organization [facility] Address [address] [place] [address] Care Team Providers Care Plaster Block Layer Name Role Phone Dixon Carson MD Primary Care Provider Mingo Aldana MD Primary Car e Provider Shahida Sutton DIPPER CLOCK AND WATCH HANDS DIGITAL ADVERTISING ANALYST Primary Care Provi ford Unavailable Herman, Shahida Cummings APRN DIGITAL ADVERTISING ANALYST Unavailable Un available Herman, Shahida Cummings APRN DIGITAL ADVERTISING ANALYST Unavailable Un available Carolynn Ramon RN Unavailable [phone] Augustine Callaway MD Unavailable Brady Lion MD Unavailable Un available Nima FranceC Unavailable [phone] Camille Chandler PA-C Unavailable [phone] Anabela Barakat APRN DIGITAL ADVERTISING ANALYST Unavailable Nima FranceC Unavailable [phone] Basilio Morillo DO Unavailable [phone] Fawad York MD Unavailable [phone] Roopa Almonte MD Unavailable [phone] Augustine Callaway MD Unavailable Maryse Burton PA-C Unavailable Marquita Starkey MD Unavailable Roopa Almonte MD Unavailable [phone] Griffin Joshi MD Unavailable Rina Magallon RN Unavailable Paula Reza MD Primary Care Provider [phone] Griffin Joshi MD Unavailable Roopa Almonte MD Unavailable [facility] hospital[facility] win DO Unavailable Lydia Bernstein PA-C Unavailable Rosa Maria Love Unavailable [phone] Augustine Callaway MD Unavailable Paula Reza MD Unavailable Keerthi Miner APRN DIGITAL ADVERTISING ANALYST Unavailable Herman, Shahida Cummings APRN DIGITAL ADVERTISING ANALYST Unavailable Un available Porsha Michaels APRN DIGITAL ADVERTISING ANALYST Unavailable [phone] Paula Reza MD Unavailable Herman, Shahida Cummings APRN DIGITAL ADVERTISING ANALYST Unavailable Un available Daylin Ludwig Unavailable [phone] Laurel Velasquez MD Unavailable Daylin Ludwig Unavailable [phone] Paula Reza MD Unavailable Porsha Michaels APRN DIGITAL ADVERTISING ANALYST Unavailable [phone] Laurel Velasquez MD Unavailable Herman, Shahida Cummings APRN DIGITAL ADVERTISING ANALYST Unavailable Un available Marilin Montaño DIGITAL ADVERTISING ANALYST Unavailable Esha Dewitt MD Unavailable [phone] Heather Mosquera MD Unavailable Paula Reza MD Unavailable Esha Dewitt MD Unavailable [phone] Valdo Escamilla PA-C Unavailable [phone] Nohelia Abarca-C Unavailable [phone] Heather Mosquera MD Unavailable [phone] Fawad York MD Unavailable [phone] Encounter Details Date Type Department Care Team (Late st Contact Info) Description 04/28/2008 MyC Medical Advice Initial Department Maximiliano Herrmann Social History Tobacco Use Types [...] COVID-19 02/15/2020 02/15/2020 02/16/2020 2:32 PM DIRECTOR OF EXHIBIT DEVELOPMENT Rule Out COVID-19 01/05/2021 01/05/2021 01/06/2021 12:57 PM CDT ESBL 01/05/2021 01/05/2021 Rule Out COVID-19 06/30/2021 06/30/2021 07/01/2021 9:34 AM CDT Rule Out COVID-19 07/25/2021 07/25/2021 07/25/2021 8:02 PM CDT documented as of this encounter Care Teams Plaster Block Layer Relationship Specialty Start Date End Date Dixon Carson MD PCP - General 08/10/03 07/21/09 Mingo Aldana MD PCP - General Family Practice 07/22/09 07/12/14 Shahida Sutton APRN DIGITAL ADVERTISING ANALYST PCP - General Nurse Practitioner 08/17/14 08/04/21 Shahida Sutton APRN DIGITAL ADVERTISING ANALYST PCP - Assigned PCP 07/12/14 05/07/18 Paula Reza MD [address] [place] [address] PCP - General Internal Medicine 08/05/21 Shahida Sutton APRN DIGITAL ADVERTISING ANALYST Assigned PCP 07/12/14 09/30/21 Carolynn Ramon, KASIE Personal Advocate & Liaison (PAL) 12/17/18 08/07/21 [place] [address] [place] [address] Assigned Musculoskeletal Provider 12/26/19 08/21/20 Brady Lion MD Assigned Heart and Vascular Provider 12/26/19 08/14/20 Nima France PA-C [address] [place] [address] Assigned Surgical Provider 05/19/20 08/21/20 Camille Chandler PA-C [address] [place] [address] Assigned Neuroscience Provider 05/19/20 09/14/20 Anabela Barakat APRN CNP [address] [place] [address] Assigned Heart and Vascular Provider 08/15/20 08/05/21 Nima France PA-C 6545 [facility] [address] [place] [address] Assigned Musculoskeletal Provider 08/22/20 11/13/20 [place] [address] [place] [address] Assigned Musculoskeletal Provider 11/14/20 12/04/20 Fawad York MD [address] [place], [place] [address] Assigned Musculoskeletal Provider 12/05/20 02/05/21 Roopa Almonte MD [address] [facility] [address] [place] [address] Endocrinology, Diabetes, and Metabolism 01/19/21 [place] [address] [facility] [address] [place] [address] Assigned Musculoskeletal Provider 02/06/21 09/16/21 Maryse Burton PA-C [address] [place] [address] Physician Associate Dentist Dermatology 04/14/21 Marquita Starkey MD [address] [facility] [address] [place] [address] Internal Medicine 05/06/21 05/06/21 Roopa Almonte MD [address] [facility] [address] [place] [address] Hospitalist Endocrinology, Diabetes, and Metabolism 05/30/21 Griffin Joshi MD [address] [place] [id number] Cardiovascular Disease 07/25/21 Rina Magallon RN Lead Campus Executive Director 07/29/21 07/11/22 Griffin Joshi MD [address] [place] [id number] Assigned Heart and Vascular Provider 08/06/21 10/07/21 Roopa Almonte MD [address] [place] [address] 200 [place], [place] [address] Assigned Endocrinology Provider 09/10/21 [place] [address] [facility] [place] [id number] Assigned Musculoskeletal Provider 09/17/21 10/14/21 yLdia Bernstein PA-C [address] [place] [address] Assigned PCP 10/01/21 10/21/21 Rosa Maria Love CHW Community Health Worker 10/06/21 [place] [address] [place] [address] Assigned Musculoskeletal Provider 10/15/21 04/26/23 Paula Reza MD [address] [place] [address] Assigned PCP 10/22/21 12/23/21 Keerthi Miner APRN DIGITAL ADVERTISING ANALYST [address] [place] [address] Assigned Heart and Vascular Provider 10/08/21 02/10/22 Shahida Sutton APRN DIGITAL ADVERTISING ANALYST Assigned PCP 12/24/21 03/24/22 Porsha Michaels APRN DIGITAL ADVERTISING ANALYST [address] [place] [address] Assigned Heart and Vascular Provider 02/11/22 05/12/22 Paula Reza MD [address] [place] [address] Assigned PCP 03/25/22 04/07/22 Shahida Sutton APRN DIGITAL ADVERTISING ANALYST [address] [place] [address] Assigned PCP 04/08/22 06/30/22 Daylin Ludwig EP [facility] [address] [place] [address] Cardiac Rehabilitation Therapist 05/16/23 Laurel Velasquez MD [address] [place] [address] Assigned Heart and Vascular Provider 05/13/22 06/30/22 Daylin Ludwig EP [facility] [address] [place] [address] Cardiac Rehabilitation Therapist 06/08/22 06/09/23 Paula Reza MD [address] [facility] 200 [place] [address] Assigned PCP 07/01/22 07/07/22 Porsha Michaels APRN DIGITAL ADVERTISING ANALYST [address] [place] [address] Assigned Heart and Vascular Provider 07/01/22 07/07/22 Laurel Velasquez MD [address] [place] [address] Assigned Heart and Vascular Provider 07/08/22 08/04/22 Shahida Sutton APRN DIGITAL ADVERTISING ANALYST Assigned PCP 07/08/22 09/08/22 Marilin Montaño, DIGITAL ADVERTISING ANALYST [address] [place] [address] Assigned Heart and Vascular Provider 08/05/22 Esha Dewitt MD [address] [place] [address] [address] [place], [place] [address] Gastroenterology 09/06/22 Heather Mosquera MD [address] [place] [address] Internal Medicine 09/06/22 Paula Reza MD [address] [facility] [address] [place], [place] [address] Assigned PCP 09/09/22 01/05/23 Esha Dewitt MD [address] [facility] [address] [place], [place] [address] Assigned Gastroenterology Provider 09/23/22 Valdo Escamilla PA-C [address] [facility] [address] [place], [place] [address] Assigned Neuroscience Provider 09/30/22 Nohelia Abarca PA-C [address] [place], [place] [address] Physician Associate Dentist Gastroenterology 10/03/22 Heather Mosquera MD 6545 [facility] 150 [place], [place] [address] Assigned PCP 01/06/23 Fawad York MD [address] [place], [place] [address] Assigned Musculoskeletal Provider 04/27/23 06/25/23 documented as of this encounter
--- OUTSIDE RECORDS SUMMARY | 2023-09-18 13:55 | XMS_ITS | Encounter Summary ---
Author Organization [facility] Address [address] [place] [address] Care Team Providers Care Concreter Name Role Phone Dixon Carson MD Primary Care Provider Mingo Aldana MD Primary Car e Provider Shahida Sutton PRESCRIPTION CLERK VALVE STEAMER Primary Care Provi ford Unavailable Herman, Shahida Cummings APRN VALVE STEAMER Unavailable Un available Herman, Shahida Cummings APRN VALVE STEAMER Unavailable Un available Carolynn Ramon RN Unavailable [phone] Augustine Callaway MD Unavailable Brady Lion MD Unavailable Un available Nima FranceC Unavailable [phone] Camille Chandler PA-C Unavailable [phone] Anabela Barakat APRN VALVE STEAMER Unavailable Nima FranceC Unavailable [phone] Basilio Morillo DO Unavailable [phone] Fawad York MD Unavailable [phone] Roopa Almonte MD Unavailable [phone] Augustine Callaway MD Unavailable Maryse Burton [...] Paula Reza MD Unavailable Keerthi Miner APRN VALVE STEAMER Unavailable Herman, Shahida Cummings APRN VALVE STEAMER Unavailable Un available Porsha Michaels APRN VALVE STEAMER Unavailable [phone] Paula Reza MD Unavailable Herman, Shahida Cummings APRN VALVE STEAMER Unavailable Un available Daylin Ludwig Unavailable [phone] Laurel Velasquez MD Unavailable Daylin Ludwig Unavailable [phone] Paula Reza MD Unavailable Porsha Michaels APRN VALVE STEAMER Unavailable [phone] Laurel Velasquez MD Unavailable Herman, Shahida Cummings APRN VALVE STEAMER Unavailable Un available Marilin Montaño VALVE STEAMER Unavailable [phone] Esha Dewitt MD Unavailable [phone] Heather Mosquera MD Unavailable Paula Reza MD Unavailable Esha Dewitt MD Unavailable [phone] Ayserick Valdo Desouza PA-C Unavailable Nohelia Abarca PA-C Unavailable [phone] Heather Mosquera MD Unavailable Fawad York MD Unavailable [phone] Reason for Visit * Reason Onset Date Comments Refill Request 03/09/2009 Encounter Details Date Type Department Care Team (Late st Contact Info) Description 03/09/2009 MyC Valorie M [address] [address] Dixon Carson MD [address] [address] Refill Request Social History Tobacco Use Types [...] encounter Miscellaneous Notes * Telephone Encounter - Brigida Hyatt - 03/09/2009 3:29 PM CST Documentation of tapering is pending. Pt states he was instructed to take 4qam,3qpm x1 week, then 3bid x1 week, then 2 bid. Will route to PR for signing. Brigida Hyatt RN YTICS DIRECTOR * Telephone Encounter - EdmarBrigida - 03/09/2009 2:57 PM C[facility]Message [facility] Mauro Terrell would like a refill of the following medications: TOPAMAX 25 MG OR TABS [Dixon Carson MD] Preferred pharmacy: [facility] [place] Comment: I called this in to [facility] over the weekend, but at the time I didn't realize I didn't have any refills. In any case, I am now completely out and haven't heard anything and hope to get this approved as soon as possible YTICS DIRECTOR documented in this encounter Plan of Treatment Not on file documented as of this encounter Visit Diagnoses Diagnosis Migraine headaches- Primary Migraine, unspecified, without mention of intractable migraine without mention of status migrainosus documented in this encounter Additional Health Concerns Infection Onset Date Last Indicated Resolved Time Rule Out COVID-19 02/15/2020 02/15/2020 02/16/2020 2:32 PM ANALYTICS DIRECTOR Rule Out COVID-19 01/05/2021 01/05/2021 01/06/2021 12:57 PM CDT ESBL 01/05/2021 01/05/2021 Rule Out COVID-19 06/30/2021 06/30/2021 07/01/2021 9:34 AM CDT Rule Out COVID-19 07/25/2021 07/25/2021 07/25/2021 8:02 PM CDT documented as of this encounter Care Teams Concreter Relationship Specialty Start Date End Date Dixon Carson MD PCP - General 08/10/03 07/21/09 Mingo Aldana MD PCP - General Family Practice 07/22/09 07/12/14 Shahida Sutton APRN VALVE STEAMER PCP - General Nurse Practitioner 08/17/14 08/04/21 Shahida Sutton APRN VALVE STEAMER PCP - Assigned PCP 07/12/14 05/07/18 Paula Reza MD [address] [facility] [address] [place] [address] PCP - General Internal Medicine 08/05/21 Shahida Sutton APRN VALVE STEAMER Assigned PCP 07/12/14 09/30/21 Carolynn Ramon RN Personal Advocate & Liaison (PAL) 12/17/18 08/07/21 [place] [address] [place] [address] Assigned Musculoskeletal Provider 12/26/19 08/21/20 Brady Lion MD Assigned Heart and Vascular Provider 12/26/19 08/14/20 Nima France PA-C [address] [place] [address] Assigned Surgical Provider 05/19/20 08/21/20 Camille Chandler PA-C [address] [facility] [address] [place] [address] Assigned Neuroscience Provider 05/19/20 09/14/20 Anabela Barakat APRN VALVE STEAMER 1700 [place] [address] Assigned Heart and Vascular Provider 08/15/20 08/05/21 Nima France PA-C [address] [place] 150242 Assigned Musculoskeletal Provider 08/22/20 11/13/20 [place] [address] [facility] [place] [address] Assigned Musculoskeletal Provider 11/14/20 12/04/20 Fawad York MD [address] [place] [address] Assigned Musculoskeletal Provider 12/05/20 02/05/21 Roopa Almonte MD [address] [facility] [address] [place], [place] [address] Endocrinology, Diabetes, and Metabolism 01/19/21 [place] [address] [facility] [address] [place] [address] Assigned Musculoskeletal Provider 02/06/21 09/16/21 Maryse Burton, PA-C [address] [place] [address] Physician Lens Examiner Dermatology 04/14/21 Marquita Starkey MD [address] [facility] [address] [place] [address] Internal Medicine 05/06/21 05/06/21 Roopa Almonte MD [address] [facility] 200 [place] [address] Hospitalist Endocrinology, Diabetes, and Metabolism 05/30/21 Griffin Joshi MD 6405 [facility] [address] [place] [address] Cardiovascular Disease 07/25/21 Rina Magallon, RN Lead Loan Review Manager 07/29/21 07/11/22 Griffin Joshi MD [address] [place] [address]405 Assigned Heart and Vascular Provider 08/06/21 10/07/21 Roopa Almonte MD [address] [facility] [address] [place], [place] [address] Assigned Endocrinology Provider 09/10/21 [place] [address] [facility] [place] [address] Assigned Musculoskeletal Provider 09/17/21 10/14/21 Lydia Bernstein, TRACEY [address] [place] [address] Assigned PCP 10/01/21 10/21/21 Rosa Maria Love CHW Community Health Worker 10/06/21 [place] [address] [address] [place] [address] Assigned Musculoskeletal Provider 10/15/21 04/26/23 Paula Reza MD [address] [facility] [address] [place] [address] Assigned PCP 10/22/21 12/23/21 Keerthi Miner APRN VALVE STEAMER [address] [place] [address] Assigned Heart and Vascular Provider 10/08/21 02/10/22 Shahida Sutton APRN VALVE STEAMER Assigned PCP 12/24/21 03/24/22 Porsha Michaels APRN VALVE STEAMER [address] [place] [address] Assigned Heart and Vascular Provider 02/11/22 05/12/22 Paula Reza MD [address] [place] [address] Assigned PCP 03/25/22 04/07/22 Shahida Sutton APRN VALVE STEAMER [address] [place] [address] Assigned PCP 04/08/22 06/30/22 Daylin Ludwig, EP [facility] [address] [place] [address] Cardiac Rehabilitation Therapist 05/16/23 Laurel Velasquez MD [address] [place] [address] Assigned Heart and Vascular Provider 05/13/22 06/30/22 Daylin Ludwig, EP [facility] [address] [place] [address] Cardiac Rehabilitation Therapist 06/08/22 06/09/23 Paula Reza MD [address] [place] [address] Assigned PCP 07/01/22 07/07/22 Porsha Michaels APRN VALVE STEAMER [address] [place] [address] Assigned Heart and Vascular Provider 07/01/22 07/07/22 Laurel Velasquez MD [address] [place] [address] Assigned Heart and Vascular Provider 07/08/22 08/04/22 Shahida Sutton APRN VALVE STEAMER Assigned PCP 07/08/22 09/08/22 Marilin Montaño, VALVE STEAMER [address] [place] [address] Assigned Heart and Vascular Provider 08/05/22 Esha Dewitt MD [address] [facility] 36 [place] [address] Gastroenterology 09/06/22 Heather Mosquera MD [address] [place] [address] Internal Medicine 09/06/22 Paula Reza MD [address] [facility] [address] [place], [place] [address] Assigned PCP 09/09/22 01/05/23 Esha Dewitt MD 420 [facility] 36 [place] [address] Assigned Gastroenterology Provider 09/23/22 Valdo Escamilla PA-C 6[address] [facility] [address] [place] [address] Assigned Neuroscience Provider 09/30/22 Nohelia Abarca PA-C [address] [place], [place] [address] Physician Lens Examiner Gastroenterology 10/03/22 Heather Mosquera MD [address] [facility] [address] [facility] [address] [place] [address] [address] Assigned PCP 01/06/23 Fawad York MD [address] [place], [place] [address] Assigned Musculoskeletal Provider 04/27/23 06/25/23 documented as of this encounter
--- OUTSIDE RECORDS SUMMARY | 2023-09-18 13:56 | XMS_ITS | Encounter Summary ---
Author Organization [facility] [place] Address [address] [place] [address] Care Team Providers Care Banquet Cook Name Role Phone Dixon Carson MD Primary Care Provider Mingo Aldana MD Primary Car e Provider Shahida Sutton TRAPPER BIRD 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 MECHANIC Primary Care Provi ford Unavailable Herman, Shahida Cummings APRN 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 MECHANIC Unavailable Un available Herman, Shahida Cummings APRN 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 MECHANIC Unavailable Un available Carolynn Ramon RN Unavailable [phone] Augustine Callaway MD Unavailable Brady Lion MD Unavailable Un available Nima FranceC Unavailable [phone] Camille Chandler PA-C Unavailable [phone] Anabela Barakat APRN 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 MECHANIC Unavailable Nima FranceC Unavailable [phone] Basilio Morillo DO Unavailable [phone] Fawad York MD Unavailable [phone] Roopa Almonte MD Unavailable [phone] Augustine Callaway MD Unavailable Maryse Burton [...] Paula Reza MD Unavailable Keerthi Miner APRN 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 MECHANIC Unavailable Herman, Shahida Cummings APRN 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 MECHANIC Unavailable Un available Porsha Michaels APRN 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 MECHANIC Unavailable [phone] Paula Reza MD Unavailable Herman, Shahida Cummings APRN 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 MECHANIC Unavailable Un available Daylin Ludwig Unavailable [phone] Laurel Velasquez MD Unavailable Daylin Ludwig Unavailable [phone] Paula Reza MD Unavailable Porsha Michaels APRN 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 MECHANIC Unavailable [phone] Laurel Velasquez MD Unavailable Herman, Shahida Cummings APRN 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 MECHANIC Unavailable Un available Marilin Montaño 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 MECHANIC Unavailable [phone] Esha Dewitt MD Unavailable [phone] Heather Mosquera MD Unavailable Paula Reza MD Unavailable Esha Dewitt MD Unavailable [phone] Valdo Escamilla PA-C Unavailable Nohelia Abarca PA-C Unavailable [phone] Heather Mosquera MD Unavailable [phone] Fawad York MD Unavailable [phone] Encounter Details Date Type Department Care Team (Late st Contact Info) Description 01/09/2007 [facility] Medical Advice [address] [address] Mingo Aldana MD [facility] [address] [place] [address] OTHER MALAISE AND FATIGUE (Primary Dx) Social History Tobacco Use Types Packs/Day Years Used Date Smoking Tobacco: Every Day Cigarettes 0.5 25 Pipe Cigars Comments:social smoker Alcohol Use Standard [...] encounter Miscellaneous Notes * Telephone Encounter - Tatum Marley - 01/10/2007 1:08 PM CST PA form requested from insurance company for increased quantity. Porsha Marley DIGITAL DIRECTOR ER WASHER documented in this encounter Plan of Treatment Not on file documented as of this encounter Visit Diagnoses Diagnosis Other malaise and fatigue- Primary documented in this encounter Additional Health Concerns Infection Onset Date Last Indicated Resolved Time Rule Out COVID-19 02/15/2020 02/15/2020 02/16/2020 2:32 PM FILTER WASHER Rule Out COVID-19 01/05/2021 01/05/2021 01/06/2021 12:57 PM CDT ESBL 01/05/2021 01/05/2021 Rule Out COVID-19 06/30/2021 06/30/2021 07/01/2021 9:34 AM CDT Rule Out COVID-19 07/25/2021 07/25/2021 07/25/2021 8:02 PM CDT documented as of this encounter Care Teams Banquet Cook Relationship Specialty Start Date End Date Dixon Carson MD PCP - General 08/10/03 07/21/09 Mingo Aldana MD PCP - General Family Practice 07/22/09 07/12/14 Shahida Sutton APRN 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 MECHANIC PCP - General Nurse Practitioner 08/17/14 08/04/21 Shahida Sutton APRN 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 MECHANIC PCP - Assigned PCP 07/12/14 05/07/18 Paula Reza MD [address] [facility] [address] [place] [address] PCP - General Internal Medicine 08/05/21 Shahida Sutton APRN 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 MECHANIC Assigned PCP 07/12/14 09/30/21 Carolynn Ramon, KASIE Personal Advocate & Liaison (PAL) 12/17/18 08/07/21 [place] [address] [place] [address] Assigned Musculoskeletal Provider 12/26/19 08/21/20 Brady Lion MD Assigned Heart and Vascular Provider 12/26/19 08/14/20 Nima France PA-C [address] [place] [address] Assigned Surgical Provider 05/19/20 08/21/20 Camille Chandler PA-C [address] [facility] [address] [place], [place] [address] Assigned Neuroscience Provider 05/19/20 09/14/20 Anabela Barakat APRN 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 MECHANIC [address] [place] [address] Assigned Heart and Vascular Provider 08/15/20 08/05/21 Nima France PA-C [address] [facility] [address] [place] [address] Assigned Musculoskeletal Provider 08/22/20 11/13/20 [place] [address] [facility] [place] [address]39 Assigned Musculoskeletal Provider 11/14/20 12/04/20 Fawad York MD [address] [place], [place] [address] Assigned Musculoskeletal Provider 12/05/20 02/05/21 Roopa Almonte MD [address] [facility] [address] [place], [place] [address] Endocrinology, Diabetes, and Metabolism 01/19/21 [place] [address] [facility] [address] [place] [address] Assigned Musculoskeletal Provider 02/06/21 09/16/21 Maryse Burton PA-C [address] [place] [address] Physician Biodiesel Plant Manager Dermatology 04/14/21 Marquita Starkey MD [address] [facility] [address] [place], [place] [address] Internal Medicine 05/06/21 05/06/21 Roopa Almonte MD [address] [address] Hospitalist Endocrinology, Diabetes, and Metabolism 05/30/21 Griffin Joshi MD [address] [place] [address] [place] [address] Cardiovascular Disease 07/25/21 Rina Magallon, RN Lead Health Promotion Manager 07/29/21 07/11/22 Griffin Joshi MD [address] [place] [address] [place] [address] Assigned Heart and Vascular Provider 08/06/21 10/07/21 Roopa Almonte MD [address] [address] [place], [place] [address] Assigned Endocrinology Provider 09/10/21 [place] [address] [facility] [address] [place] [address] Assigned Musculoskeletal Provider 09/17/21 10/14/21 Lydia Bernstein PA-C [address] [place] [address] Assigned PCP 10/01/21 10/21/21 Rosa Maria Love Cristina Community Health Worker 10/06/21 [place] [address] [address] [place] [address] Assigned Musculoskeletal Provider 10/15/21 04/26/23 Paula Reza MD [address] [place] [address] Assigned PCP 10/22/21 12/23/21 Keerthi Miner APRN 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 MECHANIC [address] [place] [address] Assigned Heart and Vascular Provider 10/08/21 02/10/22 Shahida Sutton APRN 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 MECHANIC Assigned PCP 12/24/21 03/24/22 Porsha Michaels APRN 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 MECHANIC [address] [place] [address] Assigned Heart and Vascular Provider 02/11/22 05/12/22 Paula Reza MD [address] [place] [address] Assigned PCP 1/21/23 2/3/23 Shahida Sutton APRN 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 MECHANIC [address] [place] [address] Assigned PCP 04/08/22 06/30/22 Daylin Ludwig, [facility] [address] [place] [address] Cardiac Rehabilitation Therapist 05/16/23 Laurel Velasquez MD [address] [place] [address] Assigned Heart and Vascular Provider 05/13/22 06/30/22 Daylin Ludwig, MIKI [facility] [address] [place] [address] Cardiac Rehabilitation Therapist 06/08/22 06/09/23 Paula Reza MD [address] [address] Assigned PCP 07/01/22 07/07/22 Porsha Michaels APRN 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 MECHANIC [address] [place] [address] Assigned Heart and Vascular Provider 07/01/22 07/07/22 Laurel Velasquez MD [address] [place] [address] Assigned Heart and Vascular Provider 07/08/22 08/04/22 Shahida Sutton APRN 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 MECHANIC Assigned PCP 07/08/22 09/08/22 Marilin Montaño, 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 MECHANIC [address] [place] [address] Assigned Heart and Vascular Provider 08/05/22 Esha Dewitt MD [address] [facility] 36 [place] [address] Gastroenterology 09/06/22 Heather Mosquera MD [address] [place], [place] [address] Internal Medicine 09/06/22 Paula Reza MD [address] [facility] [address] [place], [place] [address] Assigned PCP 09/09/22 01/05/23 Esha Dweitt MD [address] [facility] 36 [place], [place] [address] Assigned Gastroenterology Provider 09/23/22 Valdo Escamilla PA-C [address] [facility] [address] [place] [address] Assigned Neuroscience Provider 09/30/22 Nohelia Abarca PA-C [address] [place] [address] Physician Biodiesel Plant Manager Gastroenterology 10/03/22 Heather Mosquera MD [address] [place] [address] Assigned PCP 01/06/23 Fawad York MD [address] [place] [address] Assigned Musculoskeletal Provider 04/27/23 06/25/23 documented as of this encounter
--- OUTSIDE RECORDS SUMMARY | 2023-09-18 13:56 | XMS_ITS | Encounter Summary ---
Author Organization [place] Address [address] [place] [address] Care Team Providers Care Six Sigma Project Manager Name Role Phone Dixon Carson MD Primary Care Provider Mingo Aldana MD Primary Car e Provider Shahida Sutton PACKER INSULATION SHEET HANGER Primary Care Provi ford Unavailable Herman, Shahida Cummings APRN SHEET HANGER Unavailable Un available Herman, Shahida Cummings APRN SHEET HANGER Unavailable Un available Carolynn Rmaon RN Unavailable [phone] Augustine Callaway MD Unavailable Brady Lion MD Unavailable Un available Nima FranceC Unavailable [phone] Camille Chandler PA-C Unavailable [phone] Anabela Barakat APRN SHEET HANGER Unavailable Nima FranceC Unavailable [phone] Basilio Morillo DO Unavailable [phone] Fawad York MD Unavailable [phone] Roopa Almonte MD Unavailable [phone] Augustine Callaway MD Unavailable Maryse Burton [...] Paula Reza MD Unavailable Keertih Miner APRN SHEET HANGER Unavailable Herman, Shahida Cummings APRN SHEET HANGER Unavailable Un available Porsha Michaels APRN SHEET HANGER Unavailable [phone] Paula Reza MD Unavailable Herman, Shahida Cummings APRN SHEET HANGER Unavailable Un available Daylin Ludwig Unavailable [phone] Laurel Velasquez MD Unavailable Daylin Ludwig Unavailable [phone] Paula Reza MD Unavailable Porsha Michaels APRN SHEET HANGER Unavailable [phone] Laurel Velasquez MD Unavailable Herman, Shahida Cummings APRN SHEET HANGER Unavailable Un available Marilin Montaño SHEET HANGER Unavailable [phone] Esha Dewitt MD Unavailable [phone] Heather Mosquera MD Unavailable [phone] Paula Reza MD Unavailable Esha Dewitt MD Unavailable [phone] Valdo Escamilla PA-C Unavailable [phone] Nohelia AbarcaC Unavailable [phone] Heather Mosquera MD Unavailable Fawad York MD Unavailable Encounter Details Date Type Department Care Team (Late st Contact Info) Description 04/17/2007 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 Rule Out COVID-19 01/05/2021 01/05/2021 01/06/2021 12:57 PM CDT ESBL 01/05/2021 01/05/2021 Rule Out COVID-19 06/30/2021 06/30/2021 07/01/2021 9:34 AM CDT Rule Out COVID-19 07/25/2021 07/25/2021 07/25/2021 8:02 PM CDT documented as of this encounter Care Teams Six Sigma Project Manager Relationship Specialty Start Date End Date Dixon Carson MD PCP - General 08/10/03 07/21/09 Mingo Aldana MD PCP - General Family Practice 07/22/09 07/12/14 Shahida Sutton APRN SHEET HANGER PCP - General Nurse Practitioner 08/17/14 08/04/21 Shahida Sutton APRN SHEET HANGER PCP - Assigned PCP 07/12/14 05/07/18 Paula Reza MD [address] [facility] [address] [place] [address] PCP - General Internal Medicine 08/05/21 Shahida Sutton APRN SHEET HANGER Assigned PCP 07/12/14 09/30/21 Carolynn Ramon, KASIE Personal Advocate & Liaison (PAL) 12/17/18 08/07/21 [place] [address] [address] [place] [address] Assigned Musculoskeletal Provider 12/26/19 08/21/20 Brady Lion MD Assigned Heart and Vascular Provider 12/26/19 08/14/20 Nima France PA-C [address] [place] [address] Assigned Surgical Provider 05/19/20 08/21/20 Camille Chandler PA-C [address] [facility] [address] [place], [place] [address] Assigned Neuroscience Provider 05/19/20 09/14/20 Anabela Barakat APRN SHEET HANGER [address] [place] [address] Assigned Heart and Vascular Provider 08/15/20 08/05/21 Nima France PA-C [address] [facility] 450 [place] [address] Assigned Musculoskeletal Provider 08/22/20 11/13/20 [place] [address] [place], [place] [address] Assigned Musculoskeletal Provider 11/14/20 12/04/20 Fawad York MD [address] [place], [place] [address] Assigned Musculoskeletal Provider 12/05/20 02/05/21 Roopa Almonte MD [address] [facility] 200 [place] [address] Endocrinology, Diabetes, and Metabolism 01/19/21 [place] [address] [address] [facility] 300 [place] [address] Assigned Musculoskeletal Provider 02/06/21 09/16/21 Maryse Burton PA-C [address] [place] [address] Physician Academic Success Coordinator Dermatology 04/14/21 Marquita Starkey MD [address] [facility] [address] [place] [address] Internal Medicine 05/06/21 05/06/21 Roopa Almonet MD [address] [facility] 200 [place] [address] Hospitalist Endocrinology, Diabetes, and Metabolism 05/30/21 Griffin Joshi MD [address] [place] [address] Cardiovascular Disease 07/25/21 Rina Magallon, RN Lead Field Agronomist 07/29/21 07/11/22 Griffin Joshi MD [address] [place] [address] Assigned Heart and Vascular Provider 08/06/21 10/07/21 Roopa Almonte MD [address] [place], [place] [address] Assigned Endocrinology Provider 09/10/21 [place] [address] [facility] [place] [address] Assigned Musculoskeletal Provider 09/17/21 10/14/21 Lydia Bernstein PA-C [address] [place] [address] Assigned PCP 10/01/21 10/21/21 Rosa Maria Love CHW Community Health Worker 10/06/21 [place] [address] [place] [address] Assigned Musculoskeletal Provider 10/15/21 04/26/23 Paula Reza MD [address] [place] [address] Assigned PCP 10/22/21 12/23/21 Keerthi Miner APRN SHEET HANGER [address] [place] [address] Assigned Heart and Vascular Provider 10/08/21 02/10/22 Shahida Sutton APRN SHEET HANGER Assigned PCP 12/24/21 03/24/22 Porsha Michaels APRN SHEET HANGER [address] [place] [address] Assigned Heart and Vascular Provider 02/11/22 05/12/22 Paula Reza MD [address] [place] [address] Assigned PCP 03/25/22 04/07/22 Shahida Sutton APRN SHEET HANGER [address] [place] [address] Assigned PCP 04/08/22 06/30/[address] [facility] [address] [place] [address] Cardiac Rehabilitation Therapist 05/16/23 Laurel Velasquez MD [address] [place] [address] Assigned Heart and Vascular Provider 05/13/22 06/30/[address] [facility] [address] [place] [address] Cardiac Rehabilitation Therapist 06/08/22 06/09/23 Paula Reza MD [address] [facility] [address] [place], [place] [address] Assigned PCP 07/01/22 07/07/22 Porsha Michaels APRN SHEET HANGER [address] [place] [address] Assigned Heart and Vascular Provider 07/01/22 07/07/22 Laurel Velasquez MD [address] [place] [address] Assigned Heart and Vascular Provider 07/08/22 08/04/22 Shahida Sutton, PACKER INSULATION SHEET HANGER Assigned PCP 07/08/22 09/08/22 Marilin Montaño, SHEET HANGER [address] [place] [address] Assigned Heart and Vascular Provider 08/05/22 Esha Dewitt MD [address] [place] [address] 36 [place], [place] [address] Gastroenterology 09/06/22 Heather Mosquera MD [address] [place] [address] Internal Medicine 09/06/22 Paula Reza MD [address] [place] [address] Assigned PCP 09/09/22 01/05/23 Esha Dewitt MD 420 [facility] 36 [place], [place] [address] Assigned Gastroenterology Provider 09/23/22 Valdo Escamilla PA-C [address] [facility] [address] [place] [address] Assigned Neuroscience Provider 09/30/22 Nohelia Abarca PA-C [address] [place], [place] [address] Physician Academic Success Coordinator Gastroenterology 10/03/22 Heather Mosquera MD [address] [place] [address] Assigned PCP 01/06/23 Fawad York MD [address] [place], [place] [address] Assigned Musculoskeletal Provider 04/27/23 06/25/23 documented as of this encounter
--- OUTSIDE RECORDS SUMMARY | 2023-09-18 13:56 | XMS_ITS | Encounter Summary ---
Author Organization [facility] Address [address] [place] [address] Care Team Providers Care Oil And Gas Field Technician Name Role Phone Dixon Carson MD Primary Care Provider Mingo Aldana MD Primary Car e Provider Shahida Sutton SENIOR JAVA SOFTWARE ENGINEER SEQUINS SLINGER Primary Care Provi ford Unavailable Herman, Shahida Cummings APRN SEQUINS SLINGER Unavailable Un available Herman, Shahida Cummings APRN SEQUINS SLINGER Unavailable Un available Carolynn Ramon RN Unavailable [phone] Augustine Callaway MD Unavailable Brady Lion MD Unavailable Un available Nima FranceC Unavailable [phone] Camille Chandler PA-C Unavailable [phone] Anabela Barakat APRN SEQUINS SLINGER Unavailable Nima FranceC Unavailable [phone] Basilio Morillo DO Unavailable [phone] Fawad York MD Unavailable [phone] Roopa Almonte MD Unavailable [phone] Augustine Callaway MD Unavailable Maryse Burton PA-C Unavailable Marquita Starkey MD Unavailable Roopa Almonte MD Unavailable [phone] Griffin Joshi MD Unavailable Rina Magallon RN Unavailable Paula Reza MD Primary Care Provider [phone] Griffin Joshi MD Unavailable Roopa Almonte MD Unavailable [facility] islandBasilio win DO Unavailable Lydia Bernstein PA-C Unavailable Rosa Maria Love Unavailable [phone] Augustine Callaway MD Unavailable Paula Reza MD Unavailable Keerthi Miner APRN SEQUINS SLINGER Unavailable Herman, Shahida Cummings APRN SEQUINS SLINGER Unavailable Un available Porsha Michaels APRN SEQUINS SLINGER Unavailable [phone] Paula Reza MD Unavailable Herman, Shahida Cummings APRN SEQUINS SLINGER Unavailable Un available Dayiln Ludwig Unavailable [phone] Laurel Velasquez MD Unavailable Daylin Ludwig Unavailable [phone] Paula Reza MD Unavailable Porsha Michaels APRN SEQUINS SLINGER Unavailable [phone] Laurel Velasquez MD Unavailable Herman, Shahida Cummings APRN SEQUINS SLINGER Unavailable Un available Marilin Montaño SEQUINS SLINGER Unavailable [phone] Esha Dewitt MD Unavailable [phone] Heather Mosquera MD Unavailable Paula Reza MD Unavailable Esha Dewitt MD Unavailable [phone] Ayserick Valdo Desouza PA-C Unavailable [phone] Nohelia AbarcaC Unavailable [phone] Heather Mosquera MD Unavailable Fawad York MD Unavailable [phone] Reason for Visit * Reason Onset Date Comments MyChart Communication 12/11/2007 refill req uest: krish Encounter Details Date Type Department Care Team (Late st Contact Info) Description 12/11/[address] [address] Dixon Carson MD [address] [address] MyChart Communication (refill request: all... Social History Tobacco Use Types Packs/Day Years [...] * Telephone Encounter - Bijal Noel - 12/11/2007 9:28 AM CDT Last OV: 12/02/07 Reason for visit: sinus, migraine, neck pain, OS Last Filled: unknown Med could be approved as per [facility], however, med has not been rx'd by you before, thus, routing. Thanks, Bijal Noel RN * Telephone Encounter - Bijal Noel - 12/11/2007 9:24 AM CDTMessage from MyChart: Original authorizing provider: Mingo Terrell would like a refill of the following medications: KRISH 180 MG OR TABS [Mingo Aldana MD] Preferred pharmacy: [facility] Comment: Resuming this per Dr Carson's instructions, need refill documented in this encounter Plan of Treatment Not on file documented as of this encounter Visit Diagnoses Diagnosis GENERALIZED ANXIETY DIS- Primary Generalized anxiety disorder documented in this encounter Additional Health Concerns Infection Onset Date Last Indicated Resolved Time Rule Out COVID-19 02/15/2020 02/15/2020 02/16/2020 2:32 PM SENIOR APPLICATIONS DEVELOPER Rule Out COVID-19 01/05/2021 01/05/2021 01/06/2021 12:57 PM CDT ESBL 01/05/2021 01/05/2021 Rule Out COVID-19 06/30/2021 06/30/2021 07/01/2021 9:34 AM CDT Rule Out COVID-19 07/25/2021 07/25/2021 07/25/2021 8:02 PM CDT documented as of this encounter Care Teams Oil And Gas Field Technician Relationship Specialty Start Date End Date Dixon Carson MD PCP - General 08/10/03 07/21/09 Mingo Aldana MD PCP - General Family Practice 07/22/09 07/12/14 Shahida Sutton APRN SEQUINS SLINGER PCP - General Nurse Practitioner 08/17/14 08/04/21 Shahida Sutton APRN SEQUINS SLINGER PCP - Assigned PCP 07/12/14 05/07/18 Paula Reza MD [address] [facility] [address] [place] [address] PCP - General Internal Medicine 08/05/21 Shahida Sutton APRN SEQUINS SLINGER Assigned PCP 07/12/14 09/30/21 Carolynn Ramon RN Personal Advocate & Liaison (PAL) 12/17/18 08/07/21 [place] [address] [place] [address] Assigned Musculoskeletal Provider 12/26/19 08/21/20 Brady Lion MD Assigned Heart and Vascular Provider 12/26/19 08/14/20 Nima France PA-C [address] [place] [address] Assigned Surgical Provider 05/19/20 08/21/20 Camille Chandler PA-C [address] [facility] [address] [place] [address] Assigned Neuroscience Provider 05/19/20 09/14/20 Anabela Barakat APRN SEQUINS SLINGER [address] [place] [address] Assigned Heart and Vascular Provider 08/15/20 08/05/21 Nima France PA-C [address] [place] [address] Assigned Musculoskeletal Provider 08/22/20 11/13/20 [place] [address] [facility] [place] [address] Assigned Musculoskeletal Provider 11/14/20 12/04/20 Fawad York MD [address] [place] [address] Assigned Musculoskeletal Provider 12/05/20 02/05/21 Roopa Almonte MD [address] [facility] [address] [place] [address] Endocrinology, Diabetes, and Metabolism 01/19/21 [place] [address] [facility] [address] [place] [address] Assigned Musculoskeletal Provider 02/06/21 09/16/21 Maryse Burton, PA-C [address] [place] [address] Physician Stay Cutter Dermatology 04/14/21 Marquita Starkey MD [address] [facility] 200 [place] [address] Internal Medicine 05/06/21 05/06/21 Roopa Almonte MD [address] [facility] [address] [place] [address] Hospitalist Endocrinology, Diabetes, and Metabolism 05/30/21 Griffin Joshi MD [address] [facility] [address] [place] [address] Cardiovascular Disease 07/25/21 Rina Magallon, RN Lead Electrical Equipment Assembler 07/29/21 07/11/22 Griffin Joshi MD [address] [facility] [address] [place] [address] Assigned Heart and Vascular Provider 08/06/21 10/07/21 Roopa Almonte MD [address] [facility] [address] [place], [place] [address] Assigned Endocrinology Provider 09/10/21 [place] [address] [facility] [place] [address] Assigned Musculoskeletal Provider 09/17/21 10/14/21 Lydia Bernstein, TRACEY [address] [facility] [address] [place] [address] Assigned PCP 10/01/21 10/21/21 Rosa Maria Love Cristina Community Health Worker 10/06/21 [place] [address] [facility] [address] [place] [address] Assigned Musculoskeletal Provider 10/15/21 04/26/23 Paula Reza MD [address] [facility] [address] [place] [address] Assigned PCP 10/22/21 12/23/21 Keerthi Miner APRN SEQUINS SLINGER [address] [place] [address] Assigned Heart and Vascular Provider 10/08/21 02/10/22 Shahida Sutton APRN SEQUINS SLINGER Assigned PCP 12/24/21 03/24/22 Porsha Michaels APRN SEQUINS SLINGER [address] [place] [address] Assigned Heart and Vascular Provider 02/11/22 05/12/22 Paula Reza MD [address] [place] [address] Assigned PCP 03/25/22 04/07/22 Shahida Sutton APRN SEQUINS SLINGER [address] [place] [address] Assigned PCP 04/08/22 06/30/22 Daylin Ludwig, EP [facility] [address] [place] [address] Cardiac Rehabilitation Therapist 05/16/23 Laurel Velasquez MD [address] [place] [address] Assigned Heart and Vascular Provider 05/13/22 06/30/22 Daylin Ludwig, EP [facility] [address] [place] [address] Cardiac Rehabilitation Therapist 06/08/22 06/09/23 Paula Reza MD [address] [place] [address] Assigned PCP 07/01/22 07/07/22 Porsha Michaels APRN SEQUINS SLINGER [address] [place] [address] Assigned Heart and Vascular Provider 07/01/22 07/07/22 Laurel Velasquez MD [address] [place] [address] Assigned Heart and Vascular Provider 07/08/22 08/04/22 Shahida Sutton APRN SEQUINS SLINGER Assigned PCP 07/08/22 09/08/22 Marilin Montaño, SEQUINS SLINGER [address] [place] [address] Assigned Heart and Vascular Provider 08/05/22 Esha Dewitt MD [address] [address] Gastroenterology 09/06/22 Heather Mosquera MD [address] [place] [address] Internal Medicine 09/06/22 Paula Reza MD [address] [place], [place] [address] Assigned PCP 09/09/22 01/05/23 Esha Dewitt MD [address] [facility] [address] [place] [address] Assigned Gastroenterology Provider 09/23/22 Valdo Escamilla PA-C [address] [facility] [address] [place] [address] Assigned Neuroscience Provider 09/30/22 Nohelia Abarca PA-C [address] [place] [address] Physician Stay Cutter Gastroenterology 10/03/22 Heather Mosquera MD [address] [place] [address] Assigned PCP 01/06/23 Fawad York MD [address] [place], [place] [address] Assigned Musculoskeletal Provider 04/27/23 06/25/23 documented as of this encounter
--- OUTSIDE RECORDS SUMMARY | 2023-09-18 13:56 | XMS_ITS | Encounter Summary ---
Author Organization [facility] Address [address] [place] [address] Care Team Providers Care Process Development Engineer Name Role Phone Dixon Carson MD Primary Care Provider Mingo Aldana MD Primary Car e Provider Shahida Sutton STRATEGY ASSOCIATE SURVEY OPERATIONS DIRECTOR Primary Care Provi ford Unavailable Herman, Shahida Cummings APRN SURVEY OPERATIONS DIRECTOR Unavailable Un available Herman, Shahida Cummings APRN SURVEY OPERATIONS DIRECTOR Unavailable Un available Carolynn Ramon RN Unavailable [phone] Augustine Callaway MD Unavailable Brady Lion MD Unavailable Un available Nima FranceC Unavailable [phone] Camille Chandler PA-C Unavailable [phone] Anabela Barakat APRN SURVEY OPERATIONS DIRECTOR Unavailable Nima FranceC Unavailable [phone] Basilio Morillo DO Unavailable [phone] Fawad York MD Unavailable [phone] Roopa Almonte MD Unavailable [phone] Augustine Callaway MD Unavailable Maryse Burton PA-C Unavailable Marquita Starkey MD Unavailable Roopa Almonte MD Unavailable [phone] Griffin Joshi MD Unavailable Rina Magallon RN Unavailable Paula Reza MD Primary Care Provider [phone] Griffin Joshi MD Unavailable Roopa Almonte MD Unavailable [facility] rh[facility] islandBasilio win DO Unavailable Lydia Bernstein PA-C Unavailable Rosa Maria Love Unavailable [phone] Augustine Callaway MD Unavailable Paula Reza MD Unavailable Keerthi Miner APRN SURVEY OPERATIONS DIRECTOR Unavailable Herman, Shahida Cummings APRN SURVEY OPERATIONS DIRECTOR Unavailable Un available Porsha Michaels APRN SURVEY OPERATIONS DIRECTOR Unavailable [phone] Paula Reza MD Unavailable Herman, Shahida Cummings APRN SURVEY OPERATIONS DIRECTOR Unavailable Un available Daylin Ludwig Unavailable [phone] Laurel Velasquez MD Unavailable Daylin Ludwig Unavailable [phone] Paula Reza MD Unavailable Porsha Michaels APRN SURVEY OPERATIONS DIRECTOR Unavailable [phone] Laurel Velasquez MD Unavailable Herman, Shahida Cummings APRN SURVEY OPERATIONS DIRECTOR Unavailable Un available Marilin Montaño SURVEY OPERATIONS DIRECTOR Unavailable Esha Dew[place] MD Unavailable [phone] Heather Mosquera MD Unavailable [phone] Paula Reza MD Unavailable Esha [place] MD Unavailable [phone] Andi Valdo Desouza PA-C Unavailable [phone] Nohelia AbarcaC Unavailable [phone] Heather Mosquera MD Unavailable [phone] Fawad York MD Unavailable [phone] Reason for Visit * Reason Onset Date Comments MyChart Communication 12/31/2006 counseling ? Encounter Details Date Type Department Care Team (Late st Contact Info) Description 12/28/2006 [facility] [address] [address] Mingo Aldana MD [facility] [address] [place], [place] [id number] MyChart Communication (counseling ?) Social History Tobacco Use Types Packs/Day Years [...] Notes * Telephone Encounter - Paula Calderon - 12/31/2006 3:40 PM CDT Mychart message routed to referrals, please advise Paula Calderon RN * Telephone Encounter - Mingo Aldana - 12/28/2006 12:04 PM CDT Can we refer patient to [facility] psychologist at the [facility] in [place]. [phone] Mingo Aldana MD [facility] documented in this encounter Plan of Treatment Not on file documented as of this encounter Visit Diagnoses Not on filedocumented in this encounter Additional Health Concerns Infection Onset Date Last Indicated Resolved Time Rule Out COVID-19 02/15/2020 02/15/2020 02/16/2020 2:32 PM HOTEL CONCIERGE Rule Out COVID-19 01/05/2021 01/05/2021 01/06/2021 12:57 PM CDT ESBL 01/05/2021 01/05/2021 Rule Out COVID-19 06/30/2021 06/30/2021 07/01/2021 9:34 AM CDT Rule Out COVID-19 07/25/2021 07/25/2021 07/25/2021 8:02 PM CDT documented as of this encounter Care Teams Process Development Engineer Relationship Specialty Start Date End Date Dixon Carson MD PCP - General 08/10/03 07/21/09 Mingo Aldana MD PCP - General Family Practice 07/22/09 07/12/14 Shahida Sutton APRN SURVEY OPERATIONS DIRECTOR PCP - General Nurse Practitioner 08/17/14 08/04/21 Shahida Sutton APRN SURVEY OPERATIONS DIRECTOR PCP - Assigned PCP 07/12/14 05/07/18 Paula Reza MD [address] [facility] 200 [place] [address] PCP - General Internal Medicine 08/05/21 Shahida Sutton APRN SURVEY OPERATIONS DIRECTOR Assigned PCP 07/12/14 09/30/21 Carolynn Ramon, KASIE Personal Advocate & Liaison (PAL) 12/17/18 08/07/21 [place] [address] [place] [address] Assigned Musculoskeletal Provider 12/26/19 08/21/20 Brady Lion MD Assigned Heart and Vascular Provider 12/26/19 08/14/20 Nima France PA-C [address] [place] [address] Assigned Surgical Provider 05/19/20 08/21/20 Camille Chandler PA-C [address] [place] [address] Assigned Neuroscience Provider 05/19/20 09/14/20 Anabela Barakat APRN SURVEY OPERATIONS DIRECTOR [address] [place] [address] Assigned Heart and Vascular Provider 08/15/20 08/05/21 Nima France PA-C [address] [place], [place] [address] Assigned Musculoskeletal Provider 08/22/20 11/13/20 [place] [address] [facility] [place] [address] Assigned Musculoskeletal Provider 11/14/20 12/04/20 Fawad York MD [address] [place], [place] [address] Assigned Musculoskeletal Provider 12/05/20 02/05/21 Roopa Almonte MD [address] [facility] [address] [place] [address] Endocrinology, Diabetes, and Metabolism 01/19/21 [place] [address] [facility] 300 [place] [address] Assigned Musculoskeletal Provider 02/06/21 09/16/21 Maryse Burton PA-C [address] [place] [address] Physician Supervisor Assembly Dermatology 04/14/21 Marqutia Starkey MD [address] [facility] 200 [place] [address] Internal Medicine 05/06/21 05/06/21 Roopa Almonte MD [address] [facility] 200 [place] [address] Hospitalist Endocrinology, Diabetes, and Metabolism 05/30/21 Griffin Joshi MD [address] [place] [address] Cardiovascular Disease 07/25/21 Rina Magallon, RN Lead Sorting Cows Worker 07/29/21 07/11/22 Griffin Joshi MD [address] [place] [address] Assigned Heart and Vascular Provider 08/06/21 10/07/21 Roopa Almonte MD [address] [address] [place] [address] Assigned Endocrinology Provider 09/10/21 [place] [address] [facility] [place] [address] Assigned Musculoskeletal Provider 09/17/21 10/14/21 Lydia Bernstein PA-C [address] [place] [address] Assigned PCP 10/01/21 10/21/21 Rosa Maria Love Cristina Community Health Worker 10/06/21 [place] [address] [facility] [address] [place] [address] Assigned Musculoskeletal Provider 10/15/21 04/26/23 Paula Reza MD [address] [facility] [address] [place] [address] Assigned PCP 10/22/21 12/23/21 Keerthi Miner APRN SURVEY OPERATIONS DIRECTOR [address] [place] [address] Assigned Heart and Vascular Provider 10/08/21 02/10/22 Shahida Sutton APRN SURVEY OPERATIONS DIRECTOR Assigned PCP 12/24/21 03/24/22 Porsha Michaels APRN SURVEY OPERATIONS DIRECTOR [address] [place] [address] Assigned Heart and Vascular Provider 02/11/22 05/12/22 Paula Reza MD [address] [place] [address] Assigned PCP 03/25/22 04/07/22 Shahida Sutton APRN SURVEY OPERATIONS DIRECTOR [address] [place] [address] Assigned PCP 04/08/22 06/30/22 Daylin Ludwig, EP [facility] [address] [place] [address] Cardiac Rehabilitation Therapist 05/16/23 Laurel Velasquez MD [address] [place] [address] Assigned Heart and Vascular Provider 05/13/22 06/30/22 Daylin Ludwig, MIKI [facility] [address] [place] [address] Cardiac Rehabilitation Therapist 06/08/22 06/09/23 Paula Reza MD [address] [place] [address] Assigned PCP 07/01/22 07/07/22 Porsha Michaels APRN SURVEY OPERATIONS DIRECTOR [address] [place] [address] Assigned Heart and Vascular Provider 07/01/22 07/07/22 Laurel Velasquez MD [address] [place], [place] [address] Assigned Heart and Vascular Provider 07/08/22 08/04/22 Shahida Sutton, STRATEGY ASSOCIATE SURVEY OPERATIONS DIRECTOR Assigned PCP 07/08/22 09/08/22 Marilin Montaño, SURVEY OPERATIONS DIRECTOR [address] [place] [address] Assigned Heart and Vascular Provider 08/05/22 Esha Dewitt MD [address] [address] Gastroenterology 09/06/22 Heather Mosquera MD [address] [place] [address] Internal Medicine 09/06/22 Paula Reza MD [address] [facility] 200 [place] [address] Assigned PCP 09/09/22 01/05/23 Esha Dewitt MD [address] [address] Assigned Gastroenterology Provider 09/23/22 Valdo Escamilla PA-C [address] [place] [address] Assigned Neuroscience Provider 09/30/22 Nohelia Abarca PA-C [address] [place] [address] Physician Supervisor Assembly Gastroenterology 10/03/22 Heather Mosquera MD [address] [address] Assigned PCP 01/06/23 Fawad York MD [address] [place], [place] [address] Assigned Musculoskeletal Provider 04/27/23 06/25/23 documented as of this encounter
--- OUTSIDE RECORDS SUMMARY | 2023-09-18 13:56 | XMS_ITS | Encounter Summary ---
Author Organization [facility] Address [address] [place] [address] Care Team Providers Care Supervisor Nut Processing Name Role Phone Dixon Carson MD Primary Care Provider Mingo Aldana MD Primary Car e Provider Shahida Sutton PET TECHNOLOGIST AUTOMOTIVE PARTS PERSON Primary Care Provi ford Unavailable Herman, Shahida Cummings APRN AUTOMOTIVE PARTS PERSON Unavailable Un available Herman, Shahida Cummings APRN AUTOMOTIVE PARTS PERSON Unavailable Un available Carolynn Ramon RN Unavailable [phone] Augustine Callaway MD Unavailable Brady Lion MD Unavailable Un available Nima FranceC Unavailable [phone] Camille Chandler PA-C Unavailable [phone] Anabela Barakat APRN AUTOMOTIVE PARTS PERSON Unavailable Nima FranceC Unavailable [phone] Basiilo Morillo DO Unavailable [phone] Fawad York MD Unavailable [phone] Roopa Almonte MD Unavailable [phone] Augustine Callaway MD Unavailable Maryse Burton PA-C Unavailable Marquita Starkey MD Unavailable Roopa Almonte MD Unavailable [phone] Griffin Joshi MD Unavailable Rina Magallon RN Unavailable Paula Reza MD Primary Care Provider [phone] Griffin Joshi MD Unavailable Roopa Almonte MD Unavailable [facility] DO Unavailable Lydia Bernstein PA-C Unavailable Rosa Maria Love Unavailable [phone] Augustine Callaway MD Unavailable Paula Reza MD Unavailable Keerthi Miner APRN AUTOMOTIVE PARTS PERSON Unavailable Herman, Shahida Cummings APRN AUTOMOTIVE PARTS PERSON Unavailable Un available Porsha Michaels APRN AUTOMOTIVE PARTS PERSON Unavailable [phone] Paula Reza MD Unavailable Herman, Shahida Cummings APRN AUTOMOTIVE PARTS PERSON Unavailable Un available Daylin Ludwig Unavailable [phone] Laurel Velasquez MD Unavailable Daylin Ludwig Unavailable [phone] Paula Reza MD Unavailable Porsha Michaels APRN AUTOMOTIVE PARTS PERSON Unavailable [phone] Laurel Velasquez MD Unavailable Herman, Shahida Cummings APRN AUTOMOTIVE PARTS PERSON Unavailable Un available Marilin Montaño AUTOMOTIVE PARTS PERSON Unavailable Esha Dewitt MD Unavailable [phone] Heather Mosquera MD Unavailable [phone] Paula Reza MD Unavailable Esha Dewitt MD Unavailable [phone] Valdo Escamilla PA-C Unavailable Nohelia AbarcaC Unavailable [phone] Heather Mosquera MD Unavailable Fawad York MD Unavailable Encounter Details Date Type Department Care Team (Late st Contact Info) Description 06/11/2007 [facility] [address] [address] Dixon Carson MD [address] [address] Social History Tobacco Use Types [...] Out COVID-19 02/15/2020 02/15/2020 02/16/2020 2:32 PM IOS ARCHITECT Rule Out COVID-19 01/05/2021 01/05/2021 01/06/2021 12:57 PM CDT ESBL 01/05/2021 01/05/2021 Rule Out COVID-19 06/30/2021 06/30/2021 07/01/2021 9:34 AM CDT Rule Out COVID-19 07/25/2021 07/25/2021 07/25/2021 8:02 PM CDT documented as of this encounter Care Teams Supervisor Nut Processing Relationship Specialty Start Date End Date Dixon Carson MD PCP - General 08/10/03 07/21/09 Mingo Aldana MD PCP - General Family Practice 07/22/09 07/12/14 Shahida Sutton APRN AUTOMOTIVE PARTS PERSON PCP - General Nurse Practitioner 08/17/14 08/04/21 Shahida Sutton APRN AUTOMOTIVE PARTS PERSON PCP - Assigned PCP 07/12/14 05/07/18 Paula Reza MD [address] [facility] [address] [place] [address] PCP - General Internal Medicine 08/05/21 Shahida Sutton APRN AUTOMOTIVE PARTS PERSON Assigned PCP 07/12/14 09/30/21 Carolynn Ramon, KASIE Personal Advocate & Liaison (PAL) 12/17/18 08/07/21 [place] [address] [address] [place] [address] Assigned Musculoskeletal Provider 12/26/19 08/21/20 Brady Lion MD Assigned Heart and Vascular Provider 12/26/19 08/14/20 Nima France PA-C [address] [place] [address] Assigned Surgical Provider 05/19/20 08/21/20 Camille Chandler PA-C [address] [facility] [address] [place], [place] [address] Assigned Neuroscience Provider 05/19/20 09/14/20 Anabela Barakat APRN AUTOMOTIVE PARTS PERSON [address] [place] [address] Assigned Heart and Vascular Provider 08/15/20 08/05/21 Nima France PA-C [address] [facility] [address] [place] [address] Assigned Musculoskeletal Provider 08/22/20 11/13/20 [place] [address] [place], [place] [address] Assigned Musculoskeletal Provider 11/14/20 12/04/20 Fawad York MD [address] [place], [place] [address] Assigned Musculoskeletal Provider 12/05/20 02/05/21 Roopa Almonte MD [address] [facility] [address] [place] [address] Endocrinology, Diabetes, and Metabolism 01/19/21 [place] [address] [facility] [address] [place] [address] Assigned Musculoskeletal Provider 02/06/21 09/16/21 Maryse Burton PA-C [address] [place] [address] Physician Salvage Mend Worker Dermatology 04/14/21 Marquita Starkey MD [address] [facility] [address] [place] [address] Internal Medicine 05/06/21 05/06/21 Roopa Almonte MD [address] [facility] [address] [place] [address] Hospitalist Endocrinology, Diabetes, and Metabolism 05/30/21 Griffin Joshi MD [address] [place] [address] Cardiovascular Disease 07/25/21 Rina Magallon, RN Lead Stock Hanger 07/29/21 07/11/22 Griffin Joshi MD [address] [place] [address] Assigned Heart and Vascular Provider 08/06/21 10/07/21 Roopa Almonte MD [address] [place], [place] [address] Assigned Endocrinology Provider 09/10/21 [place] [address] [facility] [place] [address] Assigned Musculoskeletal Provider 09/17/21 10/14/21 Lydia Bernstein PA-C [address] [place] [address] Assigned PCP 10/01/21 10/21/21 Rosa Maria Love CHW Community Health Worker 10/06/21 [place] [address] [place] [address] Assigned Musculoskeletal Provider 10/15/21 04/26/23 Paula Reza MD [address] [place] [address] Assigned PCP 10/22/21 12/23/21 Keerthi Miner APRN AUTOMOTIVE PARTS PERSON [address] [place] [address] Assigned Heart and Vascular Provider 10/08/21 02/10/22 Shahida Sutton APRN AUTOMOTIVE PARTS PERSON Assigned PCP 12/24/21 03/24/22 Porsha Michaels APRN AUTOMOTIVE PARTS PERSON [address] [place] [address] Assigned Heart and Vascular Provider 02/11/22 05/12/22 Paula Reza MD [address] [place] [address] Assigned PCP 03/25/22 04/07/22 Shahida Sutton APRN AUTOMOTIVE PARTS PERSON [address] [place] [address] Assigned PCP 04/08/22 06/30/22 Daylin Ludwig EP [facility] [address] [place] [address] Cardiac Rehabilitation Therapist 05/16/23 Laurel Velasquez MD [address] [place] [address] Assigned Heart and Vascular Provider 05/13/22 06/30/22 Daylin Ludwig EP [facility] [address] [place] [address] Cardiac Rehabilitation Therapist 06/08/22 06/09/23 Paula Reza MD [address] [facility] [address] [place], [place] [address] Assigned PCP 07/01/22 07/07/22 Porsha Michaels APRN AUTOMOTIVE PARTS PERSON [address] [place] [address] Assigned Heart and Vascular Provider 07/01/22 07/07/22 Laurel Velasquez MD [address] [place] [id number] Assigned Heart and Vascular Provider 07/08/22 08/04/22 Shahida Sutton, PET TECHNOLOGIST AUTOMOTIVE PARTS PERSON Assigned PCP 07/08/22 09/08/22 Marilin Montaño, AUTOMOTIVE PARTS PERSON [address] [place] [address] Assigned Heart and Vascular Provider 08/05/22 Esha Dewitt MD [address] [place] [address] 36 [place], [place] [address] Gastroenterology 09/06/22 Heather Mosquera MD [address] [place] [address] Internal Medicine 09/06/22 Paula Reza MD [address] [place] [address] Assigned PCP 09/09/22 01/05/23 Esha Dewitt MD [address] [facility] 36 [place], [place] [address] Assigned Gastroenterology Provider 09/23/22 Valdo Escamilla PA-C [address] [facility] [address] [place] [address] Assigned Neuroscience Provider 09/30/22 Nohelia Abarca PA-C [address] [place], [place] [address] Physician Salvage Mend Worker Gastroenterology 10/03/22 Heather Mosquera MD [address] [place] [address] Assigned PCP 01/06/23 Fawad York MD [address] [place], [place] [address] Assigned Musculoskeletal Provider 04/27/23 06/25/23 documented as of this encounter
--- OUTSIDE RECORDS SUMMARY | 2023-09-18 13:56 | XMS_ITS | Encounter Summary ---
Author Organization [facility] Address [address] [place] [address] Care Team Providers Care Hydroelectric Station Chief Name Role Phone Dixon Carson MD Primary Care Provider Mingo Aldana MD Primary Car e Provider Shahida Sutton DIRECTOR OF MARKET ANALYSIS LINEN WORKER Primary Care Provi ford Unavailable Herman, Shahida Cummings APRN LINEN WORKER Unavailable Un available Herman, Shahida Cummings APRN LINEN WORKER Unavailable Un available Carolynn Ramon RN Unavailable [phone] Augustine Callaway MD Unavailable Brady Lion MD Unavailable Un available Nima FranceC Unavailable [phone] Camille Chandler PA-C Unavailable [phone] Anabela Barakat APRN LINEN WORKER Unavailable Nima FranceC Unavailable [phone] Basilio Morillo DO Unavailable [phone] Fawad York MD Unavailable [phone] Roopa Almonte MD Unavailable [phone] Augustine Callaway MD Unavailable Maryse Burton PA-C Unavailable Marquita Starkey MD Unavailable Roopa Almonte MD Unavailable [phone] Griffin Joshi MD Unavailable Rina Magallon RN Unavailable Paula Reza MD Primary Care Provider [phone] Griffin Joshi MD Unavailable Roopa Almonte MD Unavailable [facility] win DO Unavailable Lydia Bernstein PA-C Unavailable Rosa Maria Love Unavailable [phone] Augustine Callaway MD Unavailable Paula Reza MD Unavailable Keerthi Miner APRN LINEN WORKER Unavailable Herman, Shahida Cummings APRN LINEN WORKER Unavailable Un available Porsha Michaels APRN LINEN WORKER Unavailable [phone] Paula Reza MD Unavailable Herman, Shahida Cummings APRN LINEN WORKER Unavailable Un available Daylin Ludwig Unavailable [phone] Laurel Velasquez MD Unavailable Daylin Ludwig Unavailable [phone] Paula Reza MD Unavailable Porsha Michaels APRN LINEN WORKER Unavailable [phone] Laurel Velasquez MD Unavailable Herman, Shahida Cummings APRN LINEN WORKER Unavailable Un available Marilin Montaño LINEN WORKER Unavailable Esha Dewitt MD Unavailable [phone] Heather Mosquera MD Unavailable [phone] Paula Reza MD Unavailable Esha Dewitt MD Unavailable [phone] Valdo Escamilla PA-C Unavailable Nohelia AbarcaC Unavailable [phone] Heather Mosquera MD Unavailable Fawad York MD Unavailable Reason for Visit * Reason Onset Date Comments Pt. Information/instruction 06/13/2007 Encounter Details Date Type Department Care Team (Late st Contact Info) Description 06/12/2007 [facility] Advice [address] [address] Dixon Carson MD [address] [address] Pt. Information/instruct ion Social History Tobacco Use Types Packs/Day Years [...] COVID-19 02/15/2020 02/15/2020 02/16/2020 2:32 PM DIRECTOR SECURITY MANAGEMENT Rule Out COVID-19 01/05/2021 01/05/2021 01/06/2021 12:57 PM CDT ESBL 01/05/2021 01/05/2021 Rule Out COVID-19 06/30/2021 06/30/2021 07/01/2021 9:34 AM CDT Rule Out COVID-19 07/25/2021 07/25/2021 07/25/2021 8:02 PM CDT documented as of this encounter Care Teams Hydroelectric Station Chief Relationship Specialty Start Date End Date Dixon Carson MD PCP - General 08/10/03 07/21/09 Mingo Aldana MD PCP - General Family Practice 07/22/09 07/12/14 Shahida Sutton APRN LINEN WORKER PCP - General Nurse Practitioner 08/17/14 08/04/21 Shahida Sutton APRN LINEN WORKER PCP - Assigned PCP 07/12/14 05/07/18 Paula Reza MD [address] [facility] [address] [place], [place] [address] PCP - General Internal Medicine 08/05/21 Shahida Sutton APRN LINEN WORKER Assigned PCP 07/12/14 09/30/21 Carolynn Ramno RN Personal Advocate & Liaison (PAL) 12/17/18 08/07/21 [place] [address] [place] [address] Assigned Musculoskeletal Provider 12/26/19 08/21/20 Brady Lion MD Assigned Heart and Vascular Provider 12/26/19 08/14/20 Nima France PA-C [address] [facility] [address] [place] [address] Assigned Surgical Provider 05/19/20 08/21/20 Camille Chandler PA-C [address] [facility] [address] [place], [place] [address] Assigned Neuroscience Provider 05/19/20 09/14/20 Anabela Barakat APRN LINEN WORKER 1700 [place] [address] Assigned Heart and Vascular Provider 08/15/20 08/05/21 Nima France PA-C [address] [facility] 450 [place] [address] Assigned Musculoskeletal Provider 08/22/20 11/13/20 [place] [address] [place], [place] [address] Assigned Musculoskeletal Provider 11/14/20 12/04/20 Fawad York MD [address] [place], [place] [address] Assigned Musculoskeletal Provider 12/05/20 02/05/21 Roopa Almonte MD [address] [facility] [facility] 200 [place], [place] [address] Endocrinology, Diabetes, and Metabolism 01/19/21 [place] [address] [address] [facility] [address] [place] [address] Assigned Musculoskeletal Provider 02/06/21 09/16/21 Maryse [place] PA-C [address] [place] [address] Physician Spring Floor Service Worker Dermatology 04/14/21 Marquita Starkey MD [address] [facility] 200 [place], [place] [address] Internal Medicine 05/06/21 05/06/21 Roopa Almonte MD [address] [facility] 200 [place], [place] [address] Hospitalist Endocrinology, Diabetes, and Metabolism 05/30/21 Griffin Joshi MD [address] [facility] [address] [place], [place] [address] Cardiovascular Disease 07/25/21 Rina Magallon, RN Lead Financial Administration Officer 07/29/21 07/11/22 Griffin Joshi MD [address] [facility] [address] [place] [address] Assigned Heart and Vascular Provider 08/06/21 10/07/21 Roopa Almonte MD [address] [place], [place] [address] Assigned Endocrinology Provider 09/10/21 [place] [address] [facility] [place] [address] Assigned Musculoskeletal Provider 09/17/21 10/14/21 Lydia Bernstein PA-C [address] [place] [address] Assigned PCP 10/01/21 10/21/21 Kate Rosa MariaSHARDAW Community Health Worker 10/06/21 [place] [address] [place] [address] Assigned Musculoskeletal Provider 10/15/21 04/26/23 Paula Reza MD [address] [place] [address] Assigned PCP 10/22/21 12/23/21 Keerthi Miner APRN LINEN WORKER [address] [place] [address] Assigned Heart and Vascular Provider 10/08/21 02/10/22 Shahida Sutton APRN LINEN WORKER Assigned PCP 12/24/21 03/24/22 Porsha Michaels APRN LINEN WORKER [address] [place] [address] Assigned Heart and Vascular Provider 02/11/22 05/12/22 Paula Reza MD [address] [place] [address] Assigned PCP 03/25/22 04/07/22 Shahida Sutton APRN LINEN WORKER [address] [place] [address] Assigned PCP 04/08/22 06/30/22 Daylin Ludwig EP [facility] [address] [place] [address] Cardiac Rehabilitation Therapist 05/16/23 Laurel Velasquez MD [address] [place] [address] Assigned Heart and Vascular Provider 05/13/22 06/30/22 Daylin Ludwig, EP [facility] [address] [place] [address] Cardiac Rehabilitation Therapist 06/08/22 06/09/23 Paula Reza MD [address] [address] Assigned PCP 07/01/22 07/07/22 Porsha Michaels APRN LINEN WORKER [address] [place] [address] Assigned Heart and Vascular Provider 07/01/22 07/07/22 Laurel Velasquez MD [address] [place] [address] Assigned Heart and Vascular Provider 07/08/22 08/04/22 Shahida Sutton APRN LINEN WORKER Assigned PCP 07/08/22 09/08/22 Marilin Montaño, LINEN WORKER [address] [place] [address] Assigned Heart and Vascular Provider 08/05/22 Esha Dewitt MD 420 [facility] 36 [place] [address] Gastroenterology 09/06/22 Heather Mosquera MD [address] [place] [address] Internal Medicine 09/06/22 Paula Reza MD [address] [facility] 200 [place] [address] Assigned PCP 09/09/22 01/05/23 Esha Dewitt MD [address] [address] Assigned Gastroenterology Provider 09/23/22 Valdo Escamilla PA-C [address] [facility] [address] [place] [address] Assigned Neuroscience Provider 09/30/22 Nohelia Abarca PA-C [address]50 [place] [address] Physician Spring Floor Service Worker Gastroenterology 10/03/22 Heather Mosquera MD [address] [place] [address] Assigned PCP 01/06/23 Fawad York MD [address] [place], [place] [address] Assigned Musculoskeletal Provider 04/27/23 06/25/23 documented as of this encounter
--- OUTSIDE RECORDS SUMMARY | 2023-09-18 13:56 | XMS_ITS | Encounter Summary ---
Author Organization [facility] Address [address] [place] [address] Care Team Providers Care Food Broker Name Role Phone Dixon Carson MD Primary Care Provider Mingo Aldana MD Primary Car e Provider Shahida Sutton BUSINESS TECHNOLOGY ARCHITECT CARBON ROD INSERTER Primary Care Provi ford Unavailable Herman, Shahida Cummings APRN CARBON ROD INSERTER Unavailable Un available Herman, Shahida Cummings APRN CARBON ROD INSERTER Unavailable Un available Carolynn Ramon RN Unavailable [phone] Augustine Callaway MD Unavailable Brady Lion MD Unavailable Un available Nima FranceC Unavailable [phone] Camille Chandler PA-C Unavailable [phone] Anabela Barakat APRN CARBON ROD INSERTER Unavailable Nima FranceC Unavailable [phone] Basilio Morillo DO Unavailable [phone] Fawad York MD Unavailable [phone] Roopa Almonte MD Unavailable [phone] Augustine Callaway MD Unavailable Maryse Burton [...] Paula Reza MD Unavailable Keerthi Miner APRN CARBON ROD INSERTER Unavailable Herman, Shahida Cummings APRN CARBON ROD INSERTER Unavailable Un available Porsha Michaels APRN CARBON ROD INSERTER Unavailable [phone] Paula Reza MD Unavailable Herman, Shahida Cummings APRN CARBON ROD INSERTER Unavailable Un available Daylin Ludwig Unavailable [phone] Laurel Velasquez MD Unavailable Daylin Ludwig Unavailable [phone] Paula Reza MD Unavailable Porsha Michaels APRN CARBON ROD INSERTER Unavailable [phone] Laurel Velasquez MD Unavailable Herman, Shahida Cummings APRN CARBON ROD INSERTER Unavailable Un available Marilin Montaño CARBON ROD INSERTER Unavailable Esha Dewitt MD Unavailable [phone] Heather Mosquera MD Unavailable [phone] Paula Reza MD Unavailable Esha Dewitt MD Unavailable [phone] Valdo Escamilla Deo PAAna MariaC Unavailable Nohelia AbarcaC Unavailable [phone] Heather Mosquera MD Unavailable [phone] Fawad York MD Unavailable Reason for Visit * Reason Onset Date Comments Refill Request 02/03/2008 Rickie Cohen Encounter Details Date Type Department Care Team (Late st Contact Info) Description 02/02/2008 MyC Refill [address] [address] Dixon Carson MD [address] [address] Refill Request (Rickie Cohen) Social History Tobacco Use Types Packs/Day Years [...] encounter Miscellaneous Notes * Telephone Encounter - Sonia Dodd - 02/03/2008 9:07 AM CST Unable to refill Pso, not on our list. Last Seen: 12/30/07 with [place] for Lumbago Rtc instructions: none given Last Filled: 01/07/08 #30 Sonia Dodd RN. MACHINE SHOP SUPERVISOR * Telephone Encounter - Sonia Dodd - 02/03/2008 9:06 AM CSTMessage from MyChart: Original authorizing provider: Dixon Terrell would like a refill of the following medications: AMBIEN 10 MG OR TABS [Dixon Carson MD] Preferred pharmacy: [facility] Comment: MACHINE SHOP SUPERVISOR documented in this encounter Plan of Treatment Not on file documented as of this encounter Visit Diagnoses Diagnosis Insomnia with sleep apnea, unspecified documented in this encounter Additional Health Concerns Infection Onset Date Last Indicated Resolved Time Rule Out COVID-19 02/15/2020 02/15/2020 02/16/2020 2:32 PM TOOL MACHINE SHOP SUPERVISOR Rule Out COVID-19 01/05/2021 01/05/2021 01/06/2021 12:57 PM CDT ESBL 01/05/2021 01/05/2021 Rule Out COVID-19 06/30/2021 06/30/2021 07/01/2021 9:34 AM CDT Rule Out COVID-19 07/25/2021 07/25/2021 07/25/2021 8:02 PM CDT documented as of this encounter Care Teams Food Broker Relationship Specialty Start Date End Date Dixon Carson MD PCP - General 08/10/03 07/21/09 Mingo Aldana MD PCP - General Family Practice 07/22/09 07/12/14 Shahida Sutton APRN CARBON ROD INSERTER PCP - General Nurse Practitioner 08/17/14 08/04/21 Shahida Sutton APRN CARBON ROD INSERTER PCP - Assigned PCP 07/12/14 05/07/18 Paula Reza MD [address] [address] PCP - General Internal Medicine 08/05/21 Shahida Sutton APRN CARBON ROD INSERTER Assigned PCP 07/12/14 09/30/21 Carolynn Ramon, KASIE Personal Advocate & Liaison (PAL) 12/17/18 08/07/21 [place] [address] [place] [address] Assigned Musculoskeletal Provider 12/26/19 08/21/20 Brady Lion MD Assigned Heart and Vascular Provider 12/26/19 08/14/20 Nima France PA-C [address] [facility] [address] [place] [address] Assigned Surgical Provider 05/19/20 08/21/20 Camille Chandler PA-C [address] [facility] S [facility] [address] [place] [address] Assigned Neuroscience Provider 05/19/20 09/14/20 Anabela Barakat APRN CARBON ROD INSERTER [address] [place] [address] Assigned Heart and Vascular Provider 08/15/20 08/05/21 Nima France PA-C [address] [facility] [address] [place] [address] Assigned Musculoskeletal Provider 08/22/20 11/13/20 [place] [address] [facility] [place] [address] Assigned Musculoskeletal Provider 11/14/20 12/04/20 Fawad York MD [address] [place] [address] Assigned Musculoskeletal Provider 12/05/20 02/05/21 Roopa Almonte MD [address] [facility] 200 [place] [address] Endocrinology, Diabetes, and Metabolism 01/19/21 [place] [address] [facility] [address] [place] [address] Assigned Musculoskeletal Provider 02/06/21 09/16/21 Maryse Burton, PA-C [address] [place] [address] Physician Customer Acquisition Specialist Dermatology 04/14/21 Marquita Starkey MD [address] [facility] [address] [place] [address] Internal Medicine 05/06/21 05/06/21 Roopa Almonte MD [address] [facility] 200 [place] [address] Hospitalist Endocrinology, Diabetes, and Metabolism 05/30/21 Griffin Joshi MD [address] [facility] [address] [place] [address] Cardiovascular Disease 07/25/21 Rina Magallon, RN Lead Mixed Crop Farmer 07/29/21 07/11/22 Griffin Joshi MD [address] [place] [address] Assigned Heart and Vascular Provider 08/06/21 10/07/21 Roopa Almonte MD [address] [facility] 200 [place], [place] [address] Assigned Endocrinology Provider 09/10/21 [place] [address] [facility] [place] [address] Assigned Musculoskeletal Provider 09/17/21 10/14/21 Lydia Bernstein, TRACEY [address] [place] [address] Assigned PCP 10/01/21 10/21/21 Rosa Maria Love CHW Community Health Worker 10/06/21 [place] [address] [facility] [address] [place] [address] Assigned Musculoskeletal Provider 10/15/21 04/26/23 Paula Reza MD [address] [place], [place] [address] Assigned PCP 10/22/21 12/23/21 Keerthi Miner APRN CARBON ROD INSERTER [address] [place] [address] Assigned Heart and Vascular Provider 10/08/21 02/10/22 Shahida Sutton APRN CARBON ROD INSERTER Assigned PCP 12/24/21 03/24/22 Porsha Michaels APRN CARBON ROD INSERTER [address] [place] [address] Assigned Heart and Vascular Provider 02/11/22 05/12/22 Paula Reza MD [address] [place] [address] Assigned PCP 03/25/22 04/07/22 Shahida Sutton APRN CARBON ROD INSERTER [address] [place] [address] Assigned PCP 04/08/22 06/30/22 Daylin Ludwig EP [facility] [address] [place] [address] Cardiac Rehabilitation Therapist 05/16/23 Laurel Velasquez MD [address] [place] [address] Assigned Heart and Vascular Provider 05/13/22 06/30/22 Daylin Ludwig, EP [facility] [address] [place] [address] Cardiac Rehabilitation Therapist 06/08/22 06/09/23 Paula Reza MD [address] [place] [address] Assigned PCP 07/01/22 07/07/22 Porsha Michaels APRN CARBON ROD INSERTER [address] [place] [address] Assigned Heart and Vascular Provider 07/01/22 07/07/22 Laurel Velasquez MD [address] [place] [address] Assigned Heart and Vascular Provider 07/08/22 08/04/22 Shahida Sutton, BUSINESS TECHNOLOGY ARCHITECT CARBON ROD INSERTER Assigned PCP 07/08/22 09/08/22 Marilin Montaño, CARBON ROD INSERTER [address] [place] [address] Assigned Heart and Vascular Provider 08/05/22 Esha Dewitt MD [address] [place] [address] Gastroenterology 09/06/22 Heather Mosquera MD [address] [place] [address] Internal Medicine 09/06/22 Paula Reza MD [address] [facility] [address] [place], [place] [address] Assigned PCP 09/09/22 01/05/23 Esha Dewitt MD [address] [place] [address] Assigned Gastroenterology Provider 09/23/22 Valdo Escamilla PA-C [address] [place] [address] Assigned Neuroscience Provider 09/30/22 Nohelia Abarca PA-C [address] [place], [place] [address] Physician Customer Acquisition Specialist Gastroenterology 10/03/22 Heather Mosquera MD [address] [facility] 150 [place], [place] [address] Assigned PCP 01/06/23 Fawad Yrok MD [address] [place], [place] [address] Assigned Musculoskeletal Provider 04/27/23 06/25/23 documented as of this encounter
--- OUTSIDE RECORDS SUMMARY | 2023-09-18 13:56 | XMS_ITS | Encounter Summary ---
Author Organization [employer] Address [address] [place] [address] Care Team Providers Care Director Market Intelligence Name Role Phone Dixon Carson MD Primary Care Provider Mingo Aldana MD Primary Car e Provider Shahida Sutton MARKET RESEARCH ASSOCIATE HIGH HEEL BUILDER Primary Care Provi ford Unavailable Herman, Shahida Cummings APRN HIGH HEEL BUILDER Unavailable Un available Herman, Shahida Cummings APRN HIGH HEEL BUILDER Unavailable Un available Carolynn Ramon RN Unavailable [phone] Augustine Callaway MD Unavailable Brady Lion MD Unavailable Un available Nima FranceC Unavailable [phone] Camille Chandler PA-C Unavailable [phone] Anabela Barakat APRN HIGH HEEL BUILDER Unavailable Nima FranceC Unavailable [phone] Basilio Morillo DO Unavailable [phone] Fawad York MD Unavailable [phone] Roopa Almonte MD Unavailable [phone] Augustine Callaway MD Unavailable Maryse Burton [...] Paula Reza MD Unavailable Keerthi Miner APRN HIGH HEEL BUILDER Unavailable Herman, Shahida Cummings APRN HIGH HEEL BUILDER Unavailable Un available Porsha Michaels APRN HIGH HEEL BUILDER Unavailable [phone] Paula Reza MD Unavailable Herman, Shahida Cummings APRN HIGH HEEL BUILDER Unavailable Un available Daylin Ludwig Unavailable [phone] Laurel Velasquez MD Unavailable Daylin Ludwig Unavailable [phone] Paula Reza MD Unavailable Porsha Michaels APRN HIGH HEEL BUILDER Unavailable [phone] Laurel Velasquez MD Unavailable Herman, Shahida Cummings APRN HIGH HEEL BUILDER Unavailable Un available Marilin Montaño HIGH HEEL BUILDER Unavailable [phone] Esha Dewitt MD Unavailable [phone] Heather Mosquera MD Unavailable Paula Reza MD Unavailable Esha Dewitt MD Unavailable [phone] Valdo Escamilla PA-C Unavailable Nohelia Abarca PA-C Unavailable [phone] Heather Mosquera MD Unavailable Fawad York MD Unavailable [phone] Encounter Details Date Type Department Care Team (Late st Contact Info) Description 05/01/2007 [facility] [address] [address] Dixon Carson MD [address] [address] HEADACHE (Primary Dx) Social History Tobacco Use Types [...] * Telephone Encounter - Dixon Carson - 05/01/2007 4:28 PM CST Understood, will rx vicodin IE BREAKER documented in this encounter Plan of Treatment Not on file documented as of this encounter Visit Diagnoses Diagnosis Headache(784.0)- Primary Headache documented in this encounter Additional Health Concerns Infection Onset Date Last Indicated Resolved Time Rule Out COVID-19 02/15/2020 02/15/2020 02/16/2020 2:32 PM COOKIE BREAKER Rule Out COVID-19 01/05/2021 01/05/2021 01/06/2021 12:57 PM CDT ESBL 01/05/2021 01/05/2021 Rule Out COVID-19 06/30/2021 06/30/2021 07/01/2021 9:34 AM CDT Rule Out COVID-19 07/25/2021 07/25/2021 07/25/2021 8:02 PM CDT documented as of this encounter Care Teams Director Market Intelligence Relationship Specialty Start Date End Date Dixon Carson MD PCP - General 08/10/03 07/21/09 Mingo Aldana MD PCP - General Family Practice 07/22/09 07/12/14 Shahida Sutton APRN HIGH HEEL BUILDER PCP - General Nurse Practitioner 08/17/14 08/04/21 Shahida Sutton APRN HIGH HEEL BUILDER PCP - Assigned PCP 07/12/14 05/07/18 Paula Reza MD [address] [facility] [address] [place], [place] [address] PCP - General Internal Medicine 08/05/21 Shahida Sutton APRN HIGH HEEL BUILDER Assigned PCP 07/12/14 09/30/21 Carolynn Ramon, KASIE Personal Advocate & Liaison (PAL) 12/17/18 08/07/21 [place] [address] [place] [address] Assigned Musculoskeletal Provider 12/26/19 08/21/20 Brady Lion MD Assigned Heart and Vascular Provider 12/26/19 08/14/20 Nima France PA-C [address] [facility] [address] [place] [address] Assigned Surgical Provider 05/19/20 08/21/20 Camille Chandler PA-C [address] [place], [place] [address] Assigned Neuroscience Provider 05/19/20 09/14/20 Anabela Barakat APRN CNP [address] [place] [address] Assigned Heart and Vascular Provider 08/15/20 08/05/21 Nima France PA-C [address] [facility] [address] [place] [address] Assigned Musculoskeletal Provider 08/22/20 11/13/20 [place] [address] [facility] [place], [place] [address] Assigned Musculoskeletal Provider 11/14/20 12/04/20 Fawad York MD [address] [place], [place] [address] Assigned Musculoskeletal Provider 12/05/20 02/05/21 Roopa Almonte MD [address] [facility] 200 [place] [address] Endocrinology, Diabetes, and Metabolism 01/19/21 [place] [address] [facility] [address] [place] [address] Assigned Musculoskeletal Provider 02/06/21 09/16/21 Maryse Burton PA-C [address] [place] [address] Physician Top Printing Press Operator Dermatology 04/14/21 Marquita Starkey MD [address] [facility] [address] [place], [place] [address] Internal Medicine 05/06/21 05/06/21 Roopa Almonte MD [address] [facility] [address] [place] [address] Hospitalist Endocrinology, Diabetes, and Metabolism 05/30/21 Griffin Joshi MD [address] [facility] [address] [place], [place] [address] Cardiovascular Disease 07/25/21 Rina Magallon, RN Lead Strategic Sourcing Manager 07/29/21 07/11/22 Griffin Joshi MD [address] [facility] [address] [place] [address] Assigned Heart and Vascular Provider 08/06/21 10/07/21 Roopa Almonte MD [address] [facility] 200 [place] [address] Assigned Endocrinology Provider 09/10/21 [place] [address] [facility] [place] [address] Assigned Musculoskeletal Provider 09/17/21 10/14/21 Lydia Bernstein PA-C [address] [place] [address] Assigned PCP 10/01/21 10/21/21 Rosa Maria Love Cristina Community Health Worker 10/06/21 [place] [address] [place] [address] Assigned Musculoskeletal Provider 10/15/21 04/26/23 Paula Reza MD [address] [place] [address] Assigned PCP 10/22/21 12/23/21 Keerthi Miner APRN HIGH HEEL BUILDER [address] [place] [address] Assigned Heart and Vascular Provider 10/08/21 02/10/22 Shahida Sutton, DUANE HIGH HEEL BUILDER Assigned PCP 12/24/21 03/24/22 Porsha Michaels APRN HIGH HEEL BUILDER [address] [place] [address] Assigned Heart and Vascular Provider 02/11/22 05/12/22 Paula Reza MD [address] [place] [address] Assigned PCP 03/25/22 04/07/22 Shahida Sutton APRN HIGH HEEL BUILDER [address] [place] [address] Assigned PCP 04/08/22 06/30/22 Daylin Ludwig, [facility] [address] [place] [address] Cardiac Rehabilitation Therapist 05/16/23 Laurel Velasquez MD [address] [place] [address] Assigned Heart and Vascular Provider 05/13/22 06/30/22 Daylin Ludwig, [facility] [address] [place] [address] Cardiac Rehabilitation Therapist 06/08/22 06/09/23 Paula Reza MD [address] [facility] [address] [place] [address] Assigned PCP 07/01/22 07/07/22 Porsha Michaels APRN HIGH HEEL BUILDER [address] [place] [address] Assigned Heart and Vascular Provider 07/01/22 07/07/22 Laurel Velasquez MD [address] [place] [address] Assigned Heart and Vascular Provider 07/08/22 08/04/22 Shahida Sutton APRN HIGH HEEL BUILDER Assigned PCP 07/08/22 09/08/22 Marilin Montaño, HIGH HEEL BUILDER [address] [place] [address] Assigned Heart and Vascular Provider 08/05/22 Esha Dewitt MD [address] [address] Gastroenterology 09/06/22 Heather Mosquera MD [address] [place] [address] Internal Medicine 09/06/22 Paula Reza MD [address] [facility] 200 [place] [address] Assigned PCP 09/09/22 01/05/23 Esha Dewitt MD [address] [address] Assigned Gastroenterology Provider 09/23/22 Valdo Escamilla PA-C [address] [facility] [address] [place] [address] Assigned Neuroscience Provider 09/30/22 Nohelia Abarca PA-C [address] [place] [address] Physician Top Printing Press Operator Gastroenterology 10/03/22 Heather Mosquera MD [address] [place] [address] Assigned PCP 01/06/23 Fawad York MD [address] [place] [address] Assigned Musculoskeletal Provider 04/27/23 06/25/23 documented as of this encounter
--- OUTSIDE RECORDS SUMMARY | 2023-09-18 13:56 | XMS_ITS | Encounter Summary ---
Author Organization [facility] Address [address] [place] [address] Care Team Providers Care Shirt Operator Name Role Phone Dixon Carson MD Primary Care Provider Mingo Aldana MD Primary Car e Provider Shahida Sutton CUSTOMS COLLECTOR HYDROGEN CELL TENDER Primary Care Provi ford Unavailable Herman, Shahida Cummings APRN HYDROGEN CELL TENDER Unavailable Un available Herman, Shahida Cummings APRN HYDROGEN CELL TENDER Unavailable Un available Carolynn Ramon RN Unavailable [phone] Augustine Callaway MD Unavailable Brady Lion MD Unavailable Un available Nima FranceC Unavailable [phone] Camille Chandler PA-C Unavailable [phone] Anabela Barakat APRN HYDROGEN CELL TENDER Unavailable Nima FranceC Unavailable [phone] Basilio Morillo DO Unavailable [phone] Fawad York MD Unavailable [phone] Roopa Almonte MD Unavailable [phone] Augustine Callaway MD Unavailable Maryse Burton PA-C Unavailable Marquita Starkey MD Unavailable Roopa Almonte MD Unavailable [phone] Griffin Joshi MD Unavailable Rina Magallon RN Unavailable Paula Reza MD Primary Care Provider [phone] Griffin Joshi MD Unavailable Roopa Almonte MD Unavailable [facility] unit[facility]ilio win DO Unavailable Lydia Bernstein PA-C Unavailable Rosa Maria Love Unavailable [phone] Augustine Callaway MD Unavailable Paula Reza MD Unavailable Keerthi Miner APRN HYDROGEN CELL TENDER Unavailable Herman, Shahida Cummings APRN HYDROGEN CELL TENDER Unavailable Un available Porsha Michaels APRN HYDROGEN CELL TENDER Unavailable [phone] Paula Reza MD Unavailable Hermna, Shahida Cummings APRN HYDROGEN CELL TENDER Unavailable Un available Daylin Ludwig Unavailable [phone] Laurel Velasquez MD Unavailable Daylin Ludwig Unavailable [phone] Paula Reza MD Unavailable Porsha Michaels APRN HYDROGEN CELL TENDER Unavailable [phone] Laurel Velasquez MD Unavailable Herman, Shahida Cummings APRN HYDROGEN CELL TENDER Unavailable Un available Marilin Montaño HYDROGEN CELL TENDER Unavailable Esha Dewitt MD Unavailable [phone] Heather Mosquera MD Unavailable Paula Reza MD Unavailable Esha Dewitt MD Unavailable [phone] Valdo Escamilla PA-C Unavailable [phone] Nohelia AbarcaC Unavailable [phone] Heather Moqsuera MD Unavailable [phone] Fawad York MD Unavailable [phone] Encounter Details Date Type Department Care Team (Late st Contact Info) Description 10/14/2007 [facility] [address], [address] [place] [address] Dixon Carson MD [address] [address] CHRISTOFER (Obstructive Sleep Apnea); Neck Pain Social History Tobacco Use Types Packs/Day Years [...] as of this encounter Visit Diagnoses Diagnosis CHRISTOFER (obstructive sleep apnea) Obstructive sleep apnea (adult) (pediatric) Neck pain Cervicalgia documented in this encounter Additional Health Concerns Infection Onset Date Last Indicated Resolved Time Rule Out COVID-19 02/15/2020 02/15/2020 02/16/2020 2:32 PM RADIOLOGY AIDE Rule Out COVID-19 01/05/2021 01/05/2021 01/06/2021 12:57 PM CDT ESBL 01/05/2021 01/05/2021 Rule Out COVID-19 06/30/2021 06/30/2021 07/01/2021 9:34 AM CDT Rule Out COVID-19 07/25/2021 07/25/2021 07/25/2021 8:02 PM CDT documented as of this encounter Care Teams Shirt Operator Relationship Specialty Start Date End Date Dixon Carson MD PCP - General 08/10/03 07/21/09 Mingo Aldana MD PCP - General Family Practice 07/22/09 07/12/14 Shahida Sutton APRN HYDROGEN CELL TENDER PCP - General Nurse Practitioner 08/17/14 08/04/21 Shahida Sutton APRN HYDROGEN CELL TENDER PCP - Assigned PCP 07/12/14 05/07/18 Paula Reza MD [address] [place], [place] [address] PCP - General Internal Medicine 08/05/21 Shahida Sutton APRN HYDROGEN CELL TENDER Assigned PCP 07/12/14 09/30/21 Carolynn Ramon RN Personal Advocate & Liaison (PAL) 12/17/18 08/07/21 [place] [address] [place], [place] [address] Assigned Musculoskeletal Provider 12/26/19 08/21/20 Brady Lion MD Assigned Heart and Vascular Provider 12/26/19 08/14/20 Nima France PA-C [address] [facility] [address] [place] [address] Assigned Surgical Provider 05/19/20 08/21/20 Camille Chandler PA-C [address] [facility] [address] [place] [address] Assigned Neuroscience Provider 05/19/20 09/14/20 Anabela Barakat APRN HYDROGEN CELL TENDER [address] [place] [address] Assigned Heart and Vascular Provider 08/15/20 08/05/21 Nima France PA-C [address] [facility] [address] [place] [address] Assigned Musculoskeletal Provider 08/22/20 11/13/20 [place] [address] [place] [address] Assigned Musculoskeletal Provider 11/14/20 12/04/20 Fawad York MD [address] [place] [address] Assigned Musculoskeletal Provider 12/05/20 02/05/21 Roopa Almonte MD [address] [place] [address] Endocrinology, Diabetes, and Metabolism 01/19/21 [place] [address] [place] [address] Assigned Musculoskeletal Provider 02/06/21 09/16/21 Maryse Burton PA-C [address] [place] [address] Physician Web Database Developer Dermatology 04/14/21 Marquita Starkey MD [address] [facility] [address] [place], [place] [address] Internal Medicine 05/06/21 05/06/21 Roopa Almonte MD [address] [facility] [address] [place], [place] [address] Hospitalist Endocrinology, Diabetes, and Metabolism 05/30/21 Griffin Joshi MD [address] [facility] [address] [place] [address] Cardiovascular Disease 07/25/21 Rina Magallon, RN Lead Biomedical Engineering Professor 07/29/21 07/11/22 Griffin Joshi MD [address] [facility] [address] [place] [address] Assigned Heart and Vascular Provider 08/06/21 10/07/21 Roopa Almonte MD [address] [facility] 200 [place] [address] Assigned Endocrinology Provider 09/10/21 [place] [address] [facility] [place] [address] Assigned Musculoskeletal Provider 09/17/21 10/14/21 Lydia Bernstein PA-C [address] [place] [address] Assigned PCP 10/01/21 10/21/21 Rosa Maria Love [facility] Community Health Worker 10/06/21 [place] [address] [place] [address] Assigned Musculoskeletal Provider 10/15/21 04/26/23 Paula Reza MD [address] [place] [address] Assigned PCP 10/22/21 12/23/21 Keerthi Miner APRN HYDROGEN CELL TENDER [address] [place] [address] Assigned Heart and Vascular Provider 10/08/21 02/10/22 Shahida Sutton APRN HYDROGEN CELL TENDER Assigned PCP 12/24/21 03/24/22 Porsha Michaels APRN HYDROGEN CELL TENDER [address] [place] [address] Assigned Heart and Vascular Provider 02/11/22 05/12/22 Paula Reza MD [address] [place] [address] Assigned PCP 03/25/22 04/07/22 Shahida Sutton APRN HYDROGEN CELL TENDER [address] [place] [address] Assigned PCP 04/08/22 06/30/22 Daylin Ludwig, EP [facility] [address] [place] [address] Cardiac Rehabilitation Therapist 05/16/23 Laurel Velasquez MD [address] [place] [address] Assigned Heart and Vascular Provider 05/13/22 06/30/22 Daylin Ludwig, EP [facility] [address] [place] [address] Cardiac Rehabilitation Therapist 06/08/22 06/09/23 Paula Reza MD [address] [facility] [address] [place], [place] [address] Assigned PCP 07/01/22 07/07/22 Porsha Michaels APRN HYDROGEN CELL TENDER [address] [place] [place] [address] Assigned Heart and Vascular Provider 07/01/22 07/07/22 Laurel Velasquez MD [address] [place] [address] Assigned Heart and Vascular Provider 07/08/22 08/04/22 Shahida Sutton APRN HYDROGEN CELL TENDER Assigned PCP 07/08/22 09/08/22 Marilin Montaño, HYDROGEN CELL TENDER [address] [place] [address] Assigned Heart and Vascular Provider 08/05/22 Esha Dewitt MD [address] [facility] [address] [place] [address] Gastroenterology 09/06/22 Heather Mosquera MD [address] [place] [address] Internal Medicine 09/06/22 Paula Reza MD [address] [place] [address] Assigned PCP 09/09/22 01/05/23 Esha Dewitt MD [address] [address] Assigned Gastroenterology Provider 09/23/22 Valdo Escamilla PA-C [address] [facility] [address] [place] [address] Assigned Neuroscience Provider 09/30/22 Nohelia Abarca PA-C [address] [place] [address] Physician Web Database Developer Gastroenterology 10/03/22 Heather Mosquera MD [address] [place] [address] Assigned PCP 01/06/23 Fawad York MD [address] [place], [place] [address] Assigned Musculoskeletal Provider 04/27/23 06/25/23 documented as of this encounter
--- OUTSIDE RECORDS SUMMARY | 2023-09-18 13:56 | XMS_ITS | Encounter Summary ---
Author Organization [facility] Address [address] [place] [address] Care Team Providers Care Tariff Publishing Agent Name Role Phone Dixon Carson MD Primary Care Provider Mingo Aldana MD Primary Car e Provider Shahida Sutton COIL STRAPPER MACHINE FITTER Primary Care Provi ford Unavailable Herman, Shahida Cummings APRN MACHINE FITTER Unavailable Un available Herman, Shahida Cummings APRN MACHINE FITTER Unavailable Un available Carolynn Ramon RN Unavailable [phone] Augustine Callaway MD Unavailable Brady Lion MD Unavailable Un available Nima FranceC Unavailable [phone] Camille Chandler PA-C Unavailable [phone] Anabela Barakat APRN MACHINE FITTER Unavailable Nima FranceC Unavailable [phone] Basilio Morillo DO Unavailable [phone] Fawad York MD Unavailable [phone] Roopa Almonte MD Unavailable [phone] Augustine Callaway MD Unavailable Maryse Burton [...] Paula Reza MD Unavailable Keerthi Miner APRN MACHINE FITTER Unavailable Herman, Shahida Cummings APRN MACHINE FITTER Unavailable Un available Porsha Michaels APRN MACHINE FITTER Unavailable [phone] Paula Reza MD Unavailable Herman, Shahida Cummings APRN MACHINE FITTER Unavailable Un available Daylin Ludwig Unavailable [phone] Laurel Velasquez MD Unavailable Daylin Ludwig Unavailable [phone] Paula Reza MD Unavailable Porsha Michaels APRN MACHINE FITTER Unavailable [phone] Laurel Velasquez MD Unavailable Herman, Shahida Cummings APRN MACHINE FITTER Unavailable Un available Marilin Montaño MACHINE FITTER Unavailable Esha Dewitt MD Unavailable [phone] Heather Mosquera MD Unavailable Paula Reza MD Unavailable Esha Dewitt MD Unavailable [phone] Valdo Escamilla PA-C Unavailable Nohelia Abarca-C Unavailable [phone] Heather Mosquera MD Unavailable Fawad York MD Unavailable [phone] Encounter Details Date Type Department Care Team (Late st Contact Info) Description 05/07/[address] [phone] [facility] [place] Social History Tobacco Use Types Packs/Day Years [...] Out COVID-19 02/15/2020 02/15/2020 02/16/2020 2:32 PM PEACE OFFICER Rule Out COVID-19 01/05/2021 01/05/2021 01/06/2021 12:57 PM CDT ESBL 01/05/2021 01/05/2021 Rule Out COVID-19 06/30/2021 06/30/2021 07/01/2021 9:34 AM CDT Rule Out COVID-19 07/25/2021 07/25/2021 07/25/2021 8:02 PM CDT documented as of this encounter Care Teams Tariff Publishing Agent Relationship Specialty Start Date End Date Dixon Carson MD PCP - General 08/10/03 07/21/09 Mingo Aldana MD PCP - General Family Practice 07/22/09 07/12/14 Shahida Sutton APRN MACHINE FITTER PCP - General Nurse Practitioner 08/17/14 08/04/21 Shahida Sutton APRN MACHINE FITTER PCP - Assigned PCP 07/12/14 05/07/18 Paula Reza MD [address] [place], [place] [address] PCP - General Internal Medicine 08/05/21 Shahida Sutton APRN MACHINE FITTER Assigned PCP 07/12/14 09/30/21 Carolynn Ramon, KASIE Personal Advocate & Liaison (PAL) 12/17/18 08/07/21 [place] [address] [place], [place] [address] Assigned Musculoskeletal Provider 12/26/19 08/21/20 Brady Lion MD Assigned Heart and Vascular Provider 12/26/19 08/14/20 Nima France PA-C [address] [place] [address] Assigned Surgical Provider 05/19/20 08/21/20 Camille Chandler PA-C [address] [facility] [address] [place] [address] Assigned Neuroscience Provider 05/19/20 09/14/20 Anabela Barakat APRN CNP [address]00 [place] [address] Assigned Heart and Vascular Provider 08/15/20 08/05/21 Nima France PA-C [address] [facility] 450 [place] [address] Assigned Musculoskeletal Provider 08/22/20 11/13/20 [place] [address] [place], [place] [address] Assigned Musculoskeletal Provider 11/14/20 12/04/20 Fawad York MD [address] [place], [place] [address] Assigned Musculoskeletal Provider 12/05/20 02/05/21 Roopa Almonte MD [address] [facility] 200 [place] [address] Endocrinology, Diabetes, and Metabolism 01/19/21 [place] [address] [facility] 300 [place] [address] Assigned Musculoskeletal Provider 02/06/21 09/16/21 Maryse Burton PA-C [address] [place] [address] Physician Chair Trimmer Dermatology 04/14/21 Marquita Starkey MD [address] [facility] 200 [place] [address] Internal Medicine 05/06/21 05/06/21 Roopa Almonte MD [address] [facility] 200 [place] [address] Hospitalist Endocrinology, Diabetes, and Metabolism 05/30/21 Griffin Joshi MD [address] [place] [address] Cardiovascular Disease 07/25/21 Rina Magallon, RN Lead Packing Machine Inspector 07/29/21 07/11/22 Griffin Joshi MD [address] [place] [address] Assigned Heart and Vascular Provider 08/06/21 10/07/21 Roopa Almonte MD [address] [facility] 200 [place] [address] Assigned Endocrinology Provider 09/10/21 [place] [address] [facility] [place] [address] Assigned Musculoskeletal Provider 09/17/21 10/14/21 Lydia Bernstein PA-C [address] [place] [address] Assigned PCP 10/01/21 10/21/21 Rosa Maria Love [facility] Community Health Worker 10/06/21 [place] [address] [place] [address] Assigned Musculoskeletal Provider 10/15/21 04/26/23 Paula Reza MD [address] [place] [address] Assigned PCP 10/22/21 12/23/21 Keerthi Miner APRN MACHINE FITTER [address] [place] [address] Assigned Heart and Vascular Provider 10/08/21 02/10/22 Shahida Sutton APRN MACHINE FITTER Assigned PCP 12/24/21 03/24/22 Porsha Michaels APRN MACHINE FITTER [address] [place] [address] Assigned Heart and Vascular Provider 02/11/22 05/12/22 Paula Reza MD [address] [place] [address] Assigned PCP 03/25/22 04/07/22 Shahida Sutton APRN MACHINE FITTER [address] [place] [address] Assigned PCP 04/08/22 06/30/22 Daylin Ludwig EP [facility] [address] [place] [address] Cardiac Rehabilitation Therapist 05/16/23 Laurel Velasquez MD [address] [place] [place] [address] Assigned Heart and Vascular Provider 05/13/22 06/30/22 Daylin Ludwig EP [facility] [address] [place] [address] Cardiac Rehabilitation Therapist 06/08/22 06/09/23 Paula Reza MD [address] [facility] 200 [place] [address] Assigned PCP 07/01/22 07/07/22 Porsha Michaels APRN MACHINE FITTER [address] [place] [address] Assigned Heart and Vascular Provider 07/01/22 07/07/22 Laurel Velasquez MD [address] [place] [address] Assigned Heart and Vascular Provider 07/08/22 08/04/22 Shahida Sutton APRN MACHINE FITTER Assigned PCP 07/08/22 09/08/22 Marilin Montaño, MACHINE FITTER [address] [place] [address] Assigned Heart and Vascular Provider 08/05/22 Esha Dewitt MD [address] [place] [address] 36 [place], [place] [address] Gastroenterology 09/06/22 Heather Mosquera MD [address] [place] [address] Internal Medicine 09/06/22 Paula Reza MD [address] [facility] 200 [place] [address] Assigned PCP 09/09/22 01/05/23 Esha Dewitt MD 420 [facility] 36 [place] [address] Assigned Gastroenterology Provider 09/23/22 Valdo Escamilla PA-C [address] [facility] [address] [place] [address] Assigned Neuroscience Provider 09/30/22 Nohelia Abarca PA-C [address] [place] [address] Physician Chair Trimmer Gastroenterology 10/03/22 Heather Mosquera MD [address] [place] [address] Assigned PCP 01/06/23 Fawad York MD [address] [place], [place] [address] Assigned Musculoskeletal Provider 04/27/23 06/25/23 documented as of this encounter
--- OUTSIDE RECORDS SUMMARY | 2023-09-18 13:56 | XMS_ITS | Encounter Summary ---
Author Organization [facility] Address [address] [place] [address] Care Team Providers Care Silk Screen Processor Name Role Phone Dixon Carson MD Primary Care Provider Mingo Aldana MD Primary Car e Provider Shahida Sutton ASSISTANT SHIFT SUPERVISOR TENTER FEEDER Primary Care Provi ford Unavailable Herman, Shahida Cummings APRN TENTER FEEDER Unavailable Un available Herman, Shahida Cummings APRN TENTER FEEDER Unavailable Un available Carolynn Ramon RN Unavailable [phone] Augustine Callaway MD Unavailable Brady Lion MD Unavailable Un available Nima FranceC Unavailable [phone] Camille Chandler PA-C Unavailable [phone] Anabela Barakat APRN TENTER FEEDER Unavailable Nima FranceC Unavailable [phone] Basilio Morillo DO Unavailable [phone] Fawad York MD Unavailable [phone] Roopa Almonte MD Unavailable [phone] Augustine Callaway MD Unavailable Maryse Burton PA-C Unavailable Marquita Starkey MD Unavailable Roopa Almonte MD Unavailable [phone] Griffin Joshi MD Unavailable Rina Magallon RN Unavailable Paula Reza MD Primary Care Provider [phone] Griffin Joshi MD Unavailable Roopa Almonte MD Unavailable [facility] win DO Unavailable Lydia Bernstein PA-C Unavailable Rosa Maria Love Unavailable [phone] Augustine Callaway MD Unavailable Paula Reza MD Unavailable Keerthi Miner APRN TENTER FEEDER Unavailable Herman, Shahida Cummings APRN TENTER FEEDER Unavailable Un available Porsha Michaels APRN TENTER FEEDER Unavailable [phone] Paula Reza MD Unavailable Herman, Shahida Cummings APRN TENTER FEEDER Unavailable Un available Daylin Ludwig Unavailable [phone] Laurel Velasquez MD Unavailable Daylin Ludwig Unavailable [phone] Paula Reza MD Unavailable Porsha Michaels APRN TENTER FEEDER Unavailable [phone] Laurel Velasquez MD Unavailable Herman, Shahida Cummings APRN TENTER FEEDER Unavailable Un available Marilin Montaño TENTER FEEDER Unavailable [phone] Esha Dewitt MD Unavailable [phone] Heather Mosquera MD Unavailable [phone] Paula Reza MD Unavailable Esha Dewitt MD Unavailable [phone] Ayserick Valdo Desouza PA-C Unavailable [phone] Nohelia Abarca PA-C Unavailable [phone] Heather Mosquera MD Unavailable [phone] Fawad York MD Unavailable [phone] Reason for Visit * Reason Onset Date Comments MyChart Communication 08/22/2006 nexium Encounter Details Date Type Department Care Team (Late st Contact Info) Description 08/22/2006 [facility] [address] [address] Dixon Carson MD [address] [address] MyChart Communication (nexium) Social History Tobacco Use Types Packs/Day Years [...] Miscellaneous Notes * Telephone Encounter - Shayla Cordero - 08/22/2006 1:12 PM CDTMessage from Score[employer]: Original authorizing provider: Olivier Terrell would like a refill of the following medications: NEXIUM 40 MG OR CPDR [Olivier Frances MD] Preferred pharmacy: [facility] Comment: Thank you for your efforts on the pre-auth. I am not sure if my refill request has been sent to the pharmacy. 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 Rule Out COVID-19 01/05/2021 01/05/2021 01/06/2021 12:57 PM CDT ESBL 01/05/2021 01/05/2021 Rule Out COVID-19 06/30/2021 06/30/2021 07/01/2021 9:34 AM CDT Rule Out COVID-19 07/25/2021 07/25/2021 07/25/2021 8:02 PM CDT documented as of this encounter Care Teams Silk Screen Processor Relationship Specialty Start Date End Date Dixon Carson MD PCP - General 08/10/03 07/21/09 Mingo Aldana MD PCP - General Family Practice 07/22/09 07/12/14 Shahida Sutton APRN TENTER FEEDER PCP - General Nurse Practitioner 08/17/14 08/04/21 Shahida Sutton APRN TENTER FEEDER PCP - Assigned PCP 07/12/14 05/07/18 Paula Reza MD [address] [address] PCP - General Internal Medicine 08/05/21 Shahida Sutton APRN TENTER FEEDER Assigned PCP 07/12/14 09/30/21 Carolynn Ramon RN Personal Advocate & Liaison (PAL) 12/17/18 08/07/21 [place] [address] [place] [address] Assigned Musculoskeletal Provider 12/26/19 08/21/20 Brady Lion MD Assigned Heart and Vascular Provider 12/26/19 08/14/20 Nima France PA-C [address] [facility] [address] [address] [place] [address] Assigned Surgical Provider 05/19/20 08/21/20 Camille Chandler PA-C [address] [facility] [address] [place] [address] Assigned Neuroscience Provider 05/19/20 09/14/20 Anabela Barakat APRN TENTER FEEDER [address] [place] [address] Assigned Heart and Vascular Provider 08/15/20 08/05/21 Nima France PA-C [address] [address] [place] [address] Assigned Musculoskeletal Provider 08/22/20 11/13/20 [place] [address] [facility] [place] [address] Assigned Musculoskeletal Provider 11/14/20 12/04/20 Fawad York MD [address] [place] [id number] Assigned Musculoskeletal Provider 12/05/20 02/05/21 Roopa Almonte MD [address] [facility] 200 [place] [address] Endocrinology, Diabetes, and Metabolism 01/19/21 [place] [address] [facility] 300 [place] [address] Assigned Musculoskeletal Provider 02/06/21 09/16/21 Maryse Burton PA-C [address] [place] [address] Physician Bankruptcy Assistant Dermatology 04/14/21 Marquita Starkey MD [address] [facility] 200 [place] [address] Internal Medicine 05/06/21 05/06/21 Roopa Almonte MD [address] [facility] [address] [place] [address] Hospitalist Endocrinology, Diabetes, and Metabolism 05/30/21 Griffin Joshi MD [address] [facility] [address] [place] [address] Cardiovascular Disease 07/25/21 Rina Magallon, RN Lead Flat Breakdown Processor 07/29/21 07/11/22 Griffin Joshi MD [address] [facility] [address] [place] [address] Assigned Heart and Vascular Provider 08/06/21 10/07/21 Roopa Almonte MD [address] [place] [address] 200 [place] [address] Assigned Endocrinology Provider 09/10/21 [place] [address] [facility] [place] [address] Assigned Musculoskeletal Provider 09/17/21 10/14/21 Lydia Bernstein, HUYC [address] [place] [address] Assigned PCP 10/01/21 10/21/21 Rosa Maria Love CHW Community Health Worker 10/06/21 [place] [address] [facility] [address] [place] [address] Assigned Musculoskeletal Provider 10/15/21 04/26/23 Paula Reza MD [address] [facility] [address] [place] [address] Assigned PCP 10/22/21 12/23/21 Keerthi Miner APRN TENTER FEEDER [address] [place] [address] Assigned Heart and Vascular Provider 10/08/21 02/10/22 Shahida Sutton APRN TENTER FEEDER Assigned PCP 12/24/21 03/24/22 Porsha Michaels APRN TENTER FEEDER [address] [place] [address] Assigned Heart and Vascular Provider 02/11/22 05/12/22 Paula Reza MD [address] [place] [address] Assigned PCP 03/25/22 04/07/22 Shahida Sutton APRN TENTER FEEDER [address] [place] [address] Assigned PCP 04/08/22 06/30/22 Daylin Ludwig, EP [facility] [address] [place] [address] Cardiac Rehabilitation Therapist 05/16/23 Laurel Velasquez MD [address] [place] [address] Assigned Heart and Vascular Provider 05/13/22 06/30/22 Daylin Ludwig, MIKI [facility] [address] [place] [address] Cardiac Rehabilitation Therapist 06/08/22 06/09/23 Paula Reza MD [address] [place] [address] Assigned PCP 07/01/22 07/07/22 Porsha Michaels APRN TENTER FEEDER [address] [place] [address] Assigned Heart and Vascular Provider 07/01/22 07/07/22 Laurel Velasquez MD [address] [place] [address] Assigned Heart and Vascular Provider 07/08/22 08/04/22 Shahida Sutton APRN TENTER FEEDER Assigned PCP 07/08/22 09/08/22 Marilin Montaño, TENTER FEEDER [address] [place] [address] Assigned Heart and Vascular Provider 08/05/22 Esha Dewitt MD [address] [facility] 36 [place] [address] MD Gastroenterology 09/06/22 Heather Mosquera MD [address] [place] [address] Internal Medicine 09/06/22 Paula Reza MD [address] [facility] [address] [place], [place] [address] Assigned PCP 09/09/22 01/05/23 Esha Dewitt MD [address] [facility] 36 [place] [address] Assigned Gastroenterology Provider 09/23/22 Valdo Escamilla PA-C [address] [place] [address] Assigned Neuroscience Provider 09/30/22 Nohelia Abarca PA-C [address] [place] [address] Physician Bankruptcy Assistant Gastroenterology 10/03/22 Heather Mosquera MD [address] [place] [address] Assigned PCP 01/06/23 Fawad York MD [address] [place] [address] Assigned Musculoskeletal Provider 04/27/23 06/25/23 documented as of this encounter
--- OUTSIDE RECORDS SUMMARY | 2023-09-18 13:57 | XMS_ITS | Encounter Summary ---
Author Organization [place] Address [address] [place] [address] Care Team Providers Care Signing Teacher Name Role Phone Dixon Carson MD Primary Care Provider Mingo Aldana MD Primary Car e Provider Shahida Sutton EMERGENCY MEDICAL TECHNICIAN/DRIVER RETAIL AGENT Primary Care Provi ford Unavailable Herman, Shahida Cummings APRN RETAIL AGENT Unavailable Un available Herman, Shahida Cummings APRN RETAIL AGENT Unavailable Un available Carolynn Ramon RN Unavailable [phone] Augustine Callaway MD Unavailable Brady Lion MD Unavailable Un available Nima FranceC Unavailable [phone] Camille Chandler PA-C Unavailable [phone] Anabela Barakat APRN RETAIL AGENT Unavailable Nima FranceC Unavailable [phone] Basilio Morillo DO Unavailable [phone] Fawad York MD Unavailable [phone] Roopa Almonte MD Unavailable [phone] Augustine Callaway MD Unavailable Maryse Burton PA-C Unavailable Marquita Starkey MD Unavailable Roopa Almonte MD Unavailable [phone] Griffin Joshi MD Unavailable Rina Magallon RN Unavailable Paula Reza MD Primary Care Provider [phone] Griffin Joshi MD Unavailable Roopa Almonte MD Unavailable [facility] win DO Unavailable Lydia Bernstein PA-C Unavailable Rosa Maria Love Unavailable [phone] Augustine Callaway MD Unavailable Paula Reza MD Unavailable Keerthi Miner APRN RETAIL AGENT Unavailable Herman, Shahida Cummings APRN RETAIL AGENT Unavailable Un available Porsha Michaels APRN RETAIL AGENT Unavailable [phone] Paula Reza MD Unavailable Herman, Shahida Cummings APRN RETAIL AGENT Unavailable Un available Daylin Ludwig Unavailable [phone] Laurel Velasquez MD Unavailable Daylin Ludwig Unavailable [phone] Paula Reza MD Unavailable Porsha Michaels APRN RETAIL AGENT Unavailable [phone] Laurel Velasquez MD Unavailable Herman, Shahida Cummings APRN RETAIL AGENT Unavailable Un available Marilin Montaño RETAIL AGENT Unavailable Esha Dewitt MD Unavailable [phone] Heather Mosquera MD Unavailable [phone] Paula Reza MD Unavailable Esha Dewitt MD Unavailable [phone] Ayserick Lyle Deo WEBB Unavailable [phone] Nohelia AbarcaC Unavailable [phone] Heather Mosquera MD Unavailable [phone] Fawad York MD Unavailable Reason for Visit * Reason Onset Date Comments MyChart Communication 06/12/2006 Encounter Details Date Type Department Care Team (Latest Contact Info) Description 06/12/2006 [facility] [address] [address] Dixon Carson MD [address] [address] MyChart Communication Social History Tobacco Use Types Packs/Day Years [...] * Telephone Encounter - Dixon Carson - 06/12/2006 4:01 PM CDT Kareem represcribed * Telephone Encounter - Kendal Ramirez - 06/12/2006 2:15 PM CDT , did you want him on the nasacort? 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 Rule Out COVID-19 01/05/2021 01/05/2021 01/06/2021 12:57 PM CDT ESBL 01/05/2021 01/05/2021 Rule Out COVID-19 06/30/2021 06/30/2021 07/01/2021 9:34 AM CDT Rule Out COVID-19 07/25/2021 07/25/2021 07/25/2021 8:02 PM CDT documented as of this encounter Care Teams Signing Teacher Relationship Specialty Start Date End Date Dixon Carson MD PCP - General 08/10/03 07/21/09 Mingo Aldana MD PCP - General Family Practice 07/22/09 07/12/14 Shahida Sutton APRN RETAIL AGENT PCP - General Nurse Practitioner 08/17/14 08/04/21 Shahida Sutton APRN RETAIL AGENT PCP - Assigned PCP 07/12/14 05/07/18 Paula Reza MD [address] [address] PCP - General Internal Medicine 08/05/21 Shahida Sutton APRN RETAIL AGENT Assigned PCP 07/12/14 09/30/21 Carolynn Ramon RN Personal Advocate & Liaison (PAL) 12/17/18 08/07/21 [place] [address] [place] [address] Assigned Musculoskeletal Provider 12/26/19 08/21/20 Brady Lion MD Assigned Heart and Vascular Provider 12/26/19 08/14/20 Nima France PA-C [address] [address] [place], [place] [address] Assigned Surgical Provider 05/19/20 08/21/20 Camille Chandler PA-C [address] [place] [address] Assigned Neuroscience Provider 05/19/20 09/14/20 Anabela Barakat APRN RETAIL AGENT [address] [place] [address] Assigned Heart and Vascular Provider 08/15/20 08/05/21 Nima France PA-C [address] [address] Assigned Musculoskeletal Provider 08/22/20 11/13/20 [place] [address] [facility] [place] [address] Assigned Musculoskeletal Provider 11/14/20 12/04/20 Fawad York MD [address] [place] [address] Assigned Musculoskeletal Provider 12/05/20 02/05/21 Roopa Almonte MD [address] [facility] 200 [place] [address] Endocrinology, Diabetes, and Metabolism 01/19/21 [place] [address] [facility] [address] [place] [address] Assigned Musculoskeletal Provider 02/06/21 09/16/21 Maryse Burton PA-C [address] [place] [address] Physician Operations Supervisor Chemical Cleaning Dermatology 04/14/21 Marquita Starkey MD [address] [facility] 200 [place] [address] Internal Medicine 05/06/21 05/06/21 Roopa Almonte MD [address] [facility] [address] [place] [address] Hospitalist Endocrinology, Diabetes, and Metabolism 05/30/21 Griffin Joshi MD [address] [facility] [address] [place] [address] Cardiovascular Disease 07/25/21 Rina Magallon, RN Lead Debt And Budget Counselor 07/29/21 07/11/22 Griffin Joshi MD [address] [facility] [address] [place] [address] Assigned Heart and Vascular Provider 08/06/21 10/07/21 Roopa Almonte MD [address] [facility] 200 [place] [address] Assigned Endocrinology Provider 09/10/21 [place] [address] [facility] [place] [address] Assigned Musculoskeletal Provider 09/17/21 10/14/21 Lydia Bernstein PA-C [address] [place] [address] Assigned PCP 10/01/21 10/21/21 Rosa Maria Love [facility] Community Health Worker 10/06/21 [place] [address] [facility] [address] [place] [address] Assigned Musculoskeletal Provider 10/15/21 04/26/23 Paula Reza MD [address] [facility] [address] [place] [address] Assigned PCP 10/22/21 12/23/21 Keerthi Miner APRN RETAIL AGENT [address] [place] [address] Assigned Heart and Vascular Provider 10/08/21 02/10/22 Shahida Sutton APRN RETAIL AGENT Assigned PCP 12/24/21 03/24/22 Porsha Michaels APRN RETAIL AGENT [address] [place] [address] Assigned Heart and Vascular Provider 02/11/22 05/12/22 Paula Reza MD [address] [place] [address] Assigned PCP 03/25/22 04/07/22 Shahida Sutton APRN RETAIL AGENT [address] [place] [address] Assigned PCP 04/08/22 06/30/22 Daylin Ludwig, MIKI [facility] [address] [place] [address] Cardiac Rehabilitation Therapist 05/16/23 Laurel Velasquez MD [address] [place] [address] Assigned Heart and Vascular Provider 05/13/22 06/30/22 Daylin Ludwig, MIKI [facility] [address] [place] [address] Cardiac Rehabilitation Therapist 06/08/22 06/09/23 Paula Reza MD [address] [place] [address] Assigned PCP 07/01/22 07/07/22 Porsha Michaels APRN RETAIL AGENT [address] [place] [address] Assigned Heart and Vascular Provider 07/01/22 07/07/22 Laurel Velasquez MD [address] [place] [address] Assigned Heart and Vascular Provider 07/08/22 08/04/22 Shahida Sutton APRN RETAIL AGENT Assigned PCP 07/08/22 09/08/22 Marilin Montaño CNP [address] [facility] [address] Assigned Heart and Vascular Provider 08/05/22 Esha Dewitt MD [address] [facility] 36 [place], [place] [address] MD Gastroenterology 09/06/22 Heather Mosquera MD [address] [facility] [address] [place], [place] [address] Internal Medicine 09/06/22 Paula Reza MD [address] [facility] [address] [place], [place] [address] Assigned PCP 09/09/22 01/05/23 Esha Dewitt MD [address] [facility] 36 [place], [place] [address] Assigned Gastroenterology Provider 09/23/22 Valdo Escamilla PA-C [address] [facility] [address] [place] [address] Assigned Neuroscience Provider 09/30/22 Nohelia Abarca PA-C [address] [place] [address] Physician Operations Supervisor Chemical Cleaning Gastroenterology 10/03/22 Heather Mosquera MD [address] [facility] 150 [place] [address] Assigned PCP 01/06/23 Fawad York MD [address] [place] [address] Assigned Musculoskeletal Provider 04/27/23 06/25/23 documented as of this encounter
--- OUTSIDE RECORDS SUMMARY | 2023-09-18 13:57 | XMS_ITS | Clinical Summary ---
Author Organization [facility] Address [place], [place] [address] Care Team Providers Care Head Teller Name Role Phone Yash Roy MD Primary Care Provider Allergies Active Allergy Reactions Criticality Noted Date Comments Lamotrigine Rash 02/06/2019 Lisinopril Cough 02/06/2019 Mite Extract Runny Nose 02/20/2018 Spironolactone Dizziness 02/05/2023 Medications Medication Sig Dispensed Refills Start Date End Date Status blood glucose control, normal soln Use to calibrate blood glucose monitor as needed as directed. 01/09/2019 Active gabapentin (NEURONTIN) 300 mg capsule Take 900 mg by mouth 3 times daily. 12/17/2018 Active tiZANidine (ZANAFLEX) 4 mg tablet Take 4 mg by mouth every 6 hours if needed for Muscle Spasm. Active polyethylene glycoL (MIRALAX) 17 gram/dose powderIndications:C onstipation due to opioid therapy Mix 1 capful (17 g) in liquid then take by mouth 2 times daily if needed for Constipation. 510 g 03/31/2021 Active HYDROcodone-acetami nophen (NORCO) 5-325 mg per tablet Take 1 Tablet by mouth 3 times daily if needed for Pain. Max acetaminophen dose: 4000 mg in 24 hrs. Active melatonin 5 mg tab tablet Take 5 mg by mouth at bedtime if needed for Sleep. Active aspirin (ECOTRIN) 81 mg enteric coated tablet Take 81 mg by mouth. 10/04/2021 Active ENTRESTO 24 MG-26 MG TABLET 24-26 mg tablet Take 1 Tablet by mouth two times daily. 08/23/2022 Active empagliflozin (JARDIANCE) 10 mg tabletIndications:U ncontrolled type 2 diabetes mellitus with hyperglycemia (HC) Take 1 Tablet (10 mg) by mouth once daily. 30 Tablet 5 11/27/2022 Active insulin aspart, U-100, (NovoLOG FlexPen U-100 Insulin) 100 unit/mL (3 mL) penIndications:Type 2 diabetes mellitus with hyperglycemia, with long-term current use of insulin (HC) Inject 3 Units per 15 grams of carbohydrate with meals +2 units per 50 points of blood sugar above 150. Max 15 units per injection. 15 mL 1 11/27/2022 Active albuterol HFA (PRO-AIR; VENTOLIN; PROVENTIL) 90 mcg/actuation inhalerIndications: COPD with chronic bronchitis (HC) Inhale 2 Puffs by mouth every 4 hours if needed (SOB/cough). 1 Each 2 12/29/2022 Active Dexcom G7 Sensor for continuous blood glucose monitor (CGM)Indications:Ty pe 2 diabetes mellitus with complication, with long-term current use of insulin (HC) To be used to read blood sugars, follow coordinate measuring machine operator directions. 9 Each 3 01/31/2023 Active Dexcom G7 Senior Engineering Specialist for continuous blood glucose monitor (CGM)Indications:Ty pe 2 diabetes mellitus with complication, with long-term current use of insulin (HC) To be used to read blood sugars follow coordinate measuring machine operator directions. 1 Each 01/31/2023 Active hydrOXYzine HCL (ATARAX) 25 mg tabletIndications:H istory of itching TAKE 1 TABLET(25 MG) BY MOUTH FOUR TIMES DAILY NEEDED FOR ITCHING OR ANXIETY 360 Tablet 02/14/2023 Active amiodarone (CORDARONE) 200 mg tabletIndications:V -tach (HC) Take 1 Tablet (200 mg) by mouth once daily. 30 Tablet 2 02/21/2023 Active esomeprazole (NEXIUM) 40 mg capsuleIndications: Gastroesophageal reflux disease, unspecified whether esophagitis present Take 1 Capsule (40 mg) by mouth once daily. 30 Capsule 5 02/21/2023 Active metFORMIN (GLUCOPHAGE) 1,000 mg tabletIndications:T ype 2 diabetes mellitus with hyperglycemia, with long-term current use of insulin (HC) Take 1 Tablet (1,000 mg) by mouth two times daily with meals. 360 Tablet 1 02/21/2023 Active nitroglycerin (NITROSTAT) 0.4 mg sublingual tabletIndications:A cute anterior wall OR (HC) Place 1 Tablet (0.4 mg) under the tongue every 5 minutes if needed for Chest Pain. 25 Tablet 1 02/21/2023 Active rosuvastatin (CRESTOR) 40 mg tabletIndications:A SHD (arteriosclerotic heart disease),Type 2 diabetes mellitus with complication, with long-term current use of insulin (HC) Take 1 Tablet (40 mg) by mouth once daily. 90 Tablet 3 02/21/2023 Active albuterol-ipratropi um (DUONEB) (2.5-0.5 mg) in 3 mL NEBULIZATION solutionIndications :COPD with chronic bronchitis (HC) Inhale 3 mL via a nebulizer 4 times daily if needed for Shortness Of Breath or Wheezing. 540 mL 1 03/28/2023 Active blood glucose control, normal soln As directed. Active furosemide (Lasix) 40 mg tabletIndications:A cute congestive heart failure, unspecified heart failure type (HC) Take 1 Tablet (40 mg) by mouth every morning. 60 Tablet 2 04/25/2023 Active lidocaine 4 % topical patchIndications:Ch ronic pain syndrome Apply to intact skin to cover most painful area for max 12hr per 24hr period. 30 Patch 04/25/2023 Active Lantus Solostar U-100 Insulin 100 unit/mL (3 mL) penIndications:Type 2 diabetes mellitus with complication, with long-term current use of insulin (HC) INJECT 25 UNITS UNDER THE SKIN TWICE DAILY 45 mL 08/17/2023 Active Active Problems Problem Noted Date Diagnosed Date Coronary artery disease invo lving platinum coronary artery of platinum heart without angina pectoris 04/24/2023 COPD (chronic obstructive pulmonary disease) Gastroesophageal reflux disease without esophagi tis 04/24/2023 Vertigo 04/24/2023 Dizziness 04/24/2023 Malignant neoplasm of kidney, unspecified latera lity 03/01/2023 Bicuspid aortic valve 11/09/2022 Left ventricular apical thro mbus following myocardial infarction 03/28/2021 Overview: 1.5 cm apical thrombus noted on 03/28/2021 echo. Pleural effusion, bilateral 03/27/2021 Type 2 diabetes mellitus wit h hyperglycemia, with long-term current use of insulin 03/27/2021 Moderate aortic stenosis 03/27/2021 Elevated troponin 03/27/2021 Heart failure with mid-range ejection fraction 0 03/18/2021 Opioid type dependence, continuous 03/12/2021 ASHD (arteriosclerotic heart disease) 02/06/2019 Pure hypercholesterolemia 02/06/2019 Obstructive sleep apnea 02/06/2019 Chronic pain syndrome 02/06/2019 Primary insomnia 02/06/2019 Class 2 obesity in adult 02/06/2019 Type 2 diabetes mellitus wit h diabetic polyneuropathy, with long-term current use of insulin 02/06/2019 Vertigo 12/19/2017 Primary narcolepsy without cataplexy 07/25/2017 Moderate episode of recurrent major depressive d isorder 02/02/2017 ACP (advance care planning) 05/02/2016 Overview: Advance [...] Planning Liaison with [facility] Microalbuminuria 12/20/2014 Generalized anxiety disorder 02/19/2014 Overview: Diagnosis updated by automated process. Provider to review and confirm. Family history of prostate cancer 01/14/2013 Decreased cardiac ejection fraction 04/23/2012 Overview: Do you wish to do the replacement in the background? yes Ophthalmic migraine 12/05/2011 HTN, goal below 140/90 01/16/2011 Fatigue 10/10/2010 Headache 04/29/2010 Overview: Problem list name updated by automated process. Provider to review Hyperlipidemia LDL goal <100 01/02/2010 Low back pain 01/07/2008 Overview: Diagnosis updated by automated process. Provider to review and confirm. Testicular hypofunction 12/03/2006 Overview: Problem list name updated by automated process. Provider to review Sinusitis, chronic 10/15/2006 Overview: Problem list name updated by automated process. Provider to review Otalgia 08/19/2004 Overview: Problem list name updated by automated process. Provider to review Pes planus 08/19/2004 Overview: Problem list name updated by automated process. Provider to review Cervicalgia 11/24/2003 Esophageal reflux 10/06/2003 V-tach Resolved Problems Problem Noted Date Diagnosed Date Resolved Date Acute systolic congestive heart failure 03/27/2021 02/05/2023 Chest pain 03/27/2021 07/07/2021 Acute anterior wall OR 02/06/201907/[address] elevation myocardia l infarction (STEMI) 02/06/2019 07/07/2021 Overview: DESTINY x1 pLAD 03/11/21 Morbid obesity 12/20/2014 02/05/2023 Pain in joint, shoulder region 05/12/2012 02/05/2023 Elbow pain 08/06/2007 02/05/2023 Acute encephalopathy 022 Hematoma of rectus sheath Cardiac arrest 11/09/2022 Encounters Date Type Department Care Team Description 08/25/2023 Refill [facility] [address] [place] [address] Jasen Witt, Refill Request (Lantus Solostar U-100 Insulin) 08/15/2023 Refill [place] [address] [place] [address] Jasen Witt, Refill Request (Lantus Solostar U-100 Insulin) 08/15/2023 Travel 07/19/2023 10:30 AM CDT Office Visit [facility] [address] [place] [address] Rebel Hernandez MD 07/19/2023 Travel 07/18/2023 1:00 PM CDT Ancillary Procedure [place] [facility] [address] [place] [address] 07/18/2023 Travel 07/09/2023 Patient Outreach [facility] Care Management - Advanced Care Team [address] [place] [address] Linh Gandhi, REVENUE STAMPER Complex Care Management (Complex Care Engagement) 07/03/2023 Patient Outreach [facility] Care Management - Care Management Navigation/[facility] [address] [place] [address] Marilin Dillard Care Management Intake (Identification Date - payer referral) 06/25/2023 Telephone [facility] [place] [address] [facility] [address] [place] [phone] Cardiothoracic, [place] Appointment Request from Last 3 Months Immunizations Name Administration Dates Next Due COVID-19 Vaccine Spikevax (M oderna 50mcg/0.5mL) 12YO+ [id number] Formula PF 02/21/2023 Influenza A (H1N1), Inactivated 03/01/2009 Influenza RIV4 (Age 18+ Year s) PRESERV FREE 01/03/2022,01/11/2021,11/19/2017 Influenza, IIV3 (Age >=3 years) 12/25/19 09,12/25/2007,02/05/2007,2003 Influenza, IIV4 11/27/2022, 0,12/10/2018,2016,11/30/2014,02/04/2014 Pneumococcal Conj 20-valent (Prevnar 20) 11/27/2022 Pneumococcal conj 13-Valent (Prevnar 13) 09/01/2014 Tdap 05/25/2016,02/15/2006 Zoster (Shingrix-RZV, recombinant) 11/27/2022 Family History Medical History Relation Name Comments Heart Disease Father Heart Disease Mother Pain No Family History Relation Name Status Comments Father Mother Social History Tobacco Use Types Packs/Day Years Used Date Smoking Tobacco: Former Cigarettes 1 04/09/1969 - 10/03/2020 Passive Smoke Exposure: Never Smokeless Tobacco: Never Tobacco Cessation:Counseling Given: Not Answered Comments:TIP 03/30/21 Alcohol Use Standard Drinks/Week Comments Not Currently 0 (1 standard drink = 0.6 oz pur e alcohol) PHQ-2 Answer Date Recorded PHQ-2 TOTAL SCORE 4 11/09/2022 Social Connections Answer Date Recorded Frequency of Communication with Friends and Fami ly 0 09/16/2022 Financial Resource Strain Answer Date R ecorded Difficulty of Paying Living Expenses 3 09/16/2022 Difficulty of Paying Living Expenses Not on file 09/16/2022 Food Insecurity Answer Date Recorded Worried About Running Out of Food in the Last Ye ar 1 09/16/2022 Transportation Needs Answer Date Record ed Lack of Transportation (Medical) 1 09/16/2022 Housing Stability Answer Date Recorded Unable to Pay for Housing in the Last Year 1 09/16/2022 Sex and Gender Information Value Date Recorded Sex Assigned at Not on file Gender Identity Not on file Sexual Orientation Not on file Obstetrics History Last Filed Vital Signs Vital Sign Reading Time Taken Comments Blood Pressure 98/55 04/25/2023 4:15 PM HOSPITALIST MEDICAL DIRECTOR Pulse 76 04/25/2023 4:15 PM HOSPITALIST MEDICAL DIRECTOR Temperature 36.8 ??C (98.2 ??F) 04/25/2023 7:49 AM CS T Respiratory Rate 16 04/25/2023 7:49 AM HOSPITALIST MEDICAL DIRECTOR Oxygen Saturation 94% 04/25/2023 4:08 PM HOSPITALIST MEDICAL DIRECTOR Inhaled Oxygen Concentration - - Weight 109.4 kg (241 lb 3.2 oz) 04/25/2023 4:24 AM HOSPITALIST MEDICAL DIRECTOR Height 180.3 cm (5' 11) 04/24/2023 12: 45 PM HOSPITALIST MEDICAL DIRECTOR Body Mass Index 33.64 04/24/2023 12:45 PM HOSPITALIST MEDICAL DIRECTOR Plan of Treatment Upcoming Encounters Date Type Department Care Team (Latest Contact Info) Description 10/03/2023 9:00 AM CDT Appointment [facility] [address] [place] [address] 10/03/2023 11:00 AM CDT Office Visit [facility] [address] [place] [address] Jw Thomas MD [address] [facility] [address] [place] [address] 11/22/2023 Cardiac Device Check [facility] [phone] Health Maintenance Due Date Last Done Comments Colonoscopy through age 75 2005 Zoster (shingles) series for age 50+ (2 of 2) 01/22/2023 11/27/2022 Influenza for age 50-64 11/04/2023 11/28/19, 01/03/2022, 01/11/2021, Additional history exists Depression screening for age 12+ 11/10/2023 11/10/19, 02/06/2019 BMI (ht and wt on same day) for age 18+ 01/12/2024 01/11/2023, 01/02/2023, 11/09/2022, Additional history exists Tetanus booster 05/25/2026 05/25/2016, 02/15/2006 Lipids for age 45-75 12/30/2027 12/29/2022, 03/14/2021, 02/07/2019 Tdap Completed 05/25/2016, 02/15/2006 Pneumococcal series for age 6-64 Completed 11/28/19, 09/01/2014 COVID-19 vaccine series Completed 02/22/20, 01/03/2022, 08/05/2021, Additional history exists HIV for age 15-65 Completed 02/21/2023 Hepatitis C screening for ag e 18-79 Completed 02/21/2023 Procedures Procedure Name Priority Date/Time Associated Diagnosis Comments ECHO TTE COMPLETE W CONTRAST Routine 07/18/2023 2:27 PM CDT Heart failure, unspecified (HC) ANTI HIV 1/2 Routine 02/21/2023 8:59 AM HOSPITALIST MEDICAL DIRECTOR Screening for HIV (human immunodeficiency virus) ANTI HCV Routine 02/21/2023 8:59 AM HOSPITALIST MEDICAL DIRECTOR Need for hepatitis C screening test LIPID PANEL W REFLEX MEASURED LDL Today 12/29/2022 9:41 AM CDT Moderate aortic stenosis Heart failure with mid-range ejection fraction (HC) from Last 3 Months or Most Recently Relevant to Health Maintenance Results * ECHO TTE COMPLETE W CONTRAST (07/18/2023 2:27 PM CDT) AORTIC VALVE MEAN PG 41 mmHg EJECTION FRACTION 40 % LVEDD 5.9 cm Anatomical Region Laterality Modality Ultrasound 07/18/2023 1:09 PM CDT Narrative 07/18/2023 3:56 PM CDT ECHOCARDIOGRAM CHRISTIANO DURBIN ? Accession#: ?? [id number] : ?1960 62 years Study Date: ?? 07/18/2023 1:09:54 PM Gender: M ?BP: ? 98/55 mmHg Height: 180.00 cm ?BSA: ?2.29 m? ? ? Weight: 110.00 kg ?Tech: ? MSR ? Referring MD: YASH ROY Site: ? [facility] Reading Location: Mobile OP Patient Location: Outpatient. Procedure: 2D, Color Doppler and Spectral Doppler. Indication for study: Heart failure, unspecified Cardiac Rhythm: Regular.Study quality: Good. Final Impressions: 1. Mild to moderately increased left ventricular size, borderline wall thickness, moderately reduced global systolic function, calculated EF of 40 %. 2. The aortic valve is not well visualized, moderate to severe stenosis and mild to moderate regurgitation. 3. Mid and distal anterior wall, mid and distal anterior septum, and entire apex are abnormal. 4. Mildly enlarged left atrium. 5. Echo contrast was administered to enhance visualization of all left ventricular segments. Comparison Compared to prior exam images and report of 07/12/21, there has been no significant change. Chamber Sizes and Function Mild to moderately increased left ventricular size, borderline wall thickness, moderately reduced global systolic function, calculated EF of 40 %. Left atrial size is mildly enlarged. Right ventricular cavity size is normal, global systolic RV function is normal. The right atrium is normal. The pulmonary artery is of normal size and origin. The sinus of Valsalva is normal sized. The ascending aorta is normal sized. The mid and distal anterior wall, mid and distal anterior septum, and entire apex are akinetic. Valves, RV Pressures and Diastolic Function The aortic valve is not well visualized , moderate to severe stenosis and mild to moderate regurgitation. The mitral valve is normal in structure, no mitral regurgitation. Diastolic function assessment not performed. The tricuspid valve is normal in structure. Tricuspid regurgitation is regurgitation is not evident. The pulmonic valve is normal. No pulmonary regurgitation. Masses, Effusion, Shunts There is no pericardial effusion. The inferior vena cava is normal sized, respiratory size variation greater than 50%. No left to right shunting was detected by limited color flow Doppler interrogation of the interatrial septum. MEASUREMENTS AND CALCULATIONS 2-D Measurements and LV Function: LVID (d) 5.8 cm Planimetered EF 40 % LVID (s) 4.2 cm LV FS% (2D) ? 28 % IVS (d) ??1.1 cm LVOT diameter ?? 2.3 cm LVPW (d) 1.2 cm HR ?84 bpm Ao Sinus 3.8 cm LA Vol index ?36 ml/m2 Asc Ao ?? 3.8 cm RV Max 4C (d) ?? 4.8 cm Diastology: Mitral ?Tissue Doppler E Peak 1.2 m/s ??e', Septum ? 0.10 m/s A Peak 0.4 m/s ??e', Lateral ?0.04 m/s E/A ?3.1 ?E/e' Average ?? 16.92 DT ? 172 msec Aortic Valve: Vmax ? 3.8 m/s ??MICHAEL (V) ?? 1.05 cm? AI P 1/2 201 msec VTI ?0.90 m ?? MICHAEL (I) ?? 1.04 cm? ? ? LVOT V max 1.0 m/s ??Max PG ?58 mmHg LVOT VTI ?? 0.23 m ?? Mean PG ?? 41 mmHg SV ? 94 ml ?Dim Index 0.25 SV index ?? 41 ml/m? ? ? CO ?7.9 l/min ?CI ?3.5 l/min/m? ? ? Mitral Valve: MVA ? 4.4 cm? ? ? MV P 1/2 ??50 msec MV Mean G 3 mmHg MV VTI ?0.36 m Tricuspid Valve and estimated PA pressures: TAPSE 2.5 cm Contrast documentation: 2ml ml diluted Definity, lot #[id number], [facility] [place]# [id number] was administered peripherally to enhance visualization of all left ventricular segments. . This study was interpreted by an [facility] accredited facility. CC: [facility] ([facility]) [facility]. ??Final ?? Procedure Note Bruce Massey MD - 07/18/2023 ECHOCARDIOGRAM CHRISTIANO DURBIN : 1960 62 years Study Date: 07/18/2023 1:09:54 PM Gender: M BP: 98/55 mmHg Height: 180.00 cm BSA: 2.29 m? ? ? Weight: 110.00 kg Tech: MSR Referring MD: YASH ROY Site: [facility] Reading Location: Mobile OP Patient Location: Outpatient. Procedure: 2D, Color Doppler and Spectral Doppler. Indication for study: Heart failure, unspecified Cardiac Rhythm: Regular.Study quality: Good. Final Impressions: 1. Mild to moderately increased left ventricular size, borderline wallthickness, moderately reduced global systolic function, calculated EF of40 %. 2. The aortic valve is not well visualized, moderate to severe stenosisand mild to moderate regurgitation. 3. Mid and distal anterior wall, mid and distal anterior septum, andentire apex are abnormal. 4. Mildly enlarged left atrium. 5. Echo contrast was administered to enhance visualization of all leftventricular segments. Comparison Compared to prior exam images and report of 07/12/21, there has been nosignificant change. Chamber Sizes and Function Mild to moderately increased left ventricular size, borderline wallthickness, moderately reduced global systolic function, calculated EF of40 %. Left atrial size is mildly enlarged. Right ventricular cavity sizeis normal, global systolic RV function is normal. The right atrium isnormal. The pulmonary artery is of normal size and origin. The sinus ofValsalva is normal sized. The ascending aorta is normal sized. The mid anddistal anterior wall, mid and distal anterior septum, and entire apex areakinetic. Valves, RV Pressures and Diastolic Function The aortic valve is not well visualized , moderate to severe stenosis andmild to moderate regurgitation. The mitral valve is normal in structure,no mitral regurgitation. Diastolic function assessment not performed. Thetricuspid valve is normal in structure. Tricuspid regurgitation isregurgitation is not evident. The pulmonic valve is normal. No pulmonaryregurgitation. Masses, Effusion, Shunts There is no pericardial effusion. The inferior vena cava is normal sized,respiratory size variation greater than 50%. No left to right shunting wasdetected by limited color flow Doppler interrogation of the interatrialseptum. MEASUREMENTS AND CALCULATIONS 2-D Measurements and LV Function: LVID (d) 5.8 cm Planimetered EF 40 % LVID (s) 4.2 cm LV FS% (2D) 28 % IVS (d) 1.1 cm LVOT diameter 2.3 cm LVPW (d) 1.2 cm HR 84 bpm Ao Sinus 3.8 cm LA Vol index 36 ml/m2 Asc Ao 3.8 cm RV Max 4C (d) 4.8 cm Diastology: Mitral Tissue Doppler E Peak 1.2 m/s e', Septum 0.10 m/s A Peak 0.4 m/s e', Lateral 0.04 m/s E/A 3.1 E/e' Average 16.92 DT 172 msec Aortic Valve: Vmax 3.8 m/s MICHAEL (V) 1.05 cm? ? ? AI P 1/2 201 msec VTI 0.90 m MICHAEL (I) 1.04 cm? ? ? LVOT V max 1.0 m/s Max PG 58 mmHg LVOT VTI 0.23 m Mean PG 41 mmHg SV 94 ml Dim Index 0.25 SV index 41 ml/m? ? ? CO 7.9 l/min CI 3.5 l/min/m? ? ? Mitral Valve: MVA 4.4 cm? ? ? MV P 1/2 50 msec MV Mean G 3 mmHg MV VTI 0.36 m Tricuspid Valve and estimated PA pressures: TAPSE 2.5 cm Contrast documentation: 2ml ml diluted Definity, lot #[id number], [facility] [place]#[id number] was administered peripherally to enhance visualization of allleft ventricular segments. . This study was interpreted by an [facility] accredited facility. CC: [facility] ([facility]. Final Yash Roy MD ECHO ORD * ANTI HCV (02/21/2023 8:59 AM HOSPITALIST MEDICAL DIRECTOR) HEPATITIS C ANTIBODY Non-Reacti ve Non-React tomer 02/21/2023 1:07 PM HOSPITALIST MEDICAL DIRECTOR [facility] Comment:Please note, per www .CDC.gov: If a patient is known to be at high risk of HCV infection, or is symptomatic, and the physician's suspicion of HCV infection is high, HCV RNA testing is often employed and is of diagnostic value, even after an initial negative anti-HCV test result. Blood BLOOD SPECIMEN / Unknown Venipuncture / Unknown 02/21/2023 8:59 AM HOSPITALIST MEDICAL DIRECTOR 02/21/2023 8:59 AM HOSPITALIST MEDICAL DIRECTOR Jasen Witt DO [facility] [address] [place] [id number], [place] * ANTI HIV 1/2 [10397.0] (02/21/2023 8:59 AM HOSPITALIST MEDICAL DIRECTOR) HIV-1/HIV-2 SCREEN Non-Reacti ve Non-Reacti ve 02/21/2023 1:01 PM HOSPITALIST MEDICAL DIRECTOR [facility] Comment:HIV-1 p24 and HIV-1/ HIV-2 Ab Not Detected. Blood BLOOD SPECIMEN / Unknown Venipuncture / Unknown 02/21/2023 8:59 AM HOSPITALIST MEDICAL DIRECTOR 02/21/2023 8:59 AM HOSPITALIST MEDICAL DIRECTOR Jasen Witt DO [facility] [address] [place] [id number], [place] * (ABNORMAL) LIPID PANEL W REFLEX MEASURED LDL (12/29/2022 9:41 AM CDT) CHOLESTEROL,TOTAL 135 100 - 199 mg/dL 01/02/2023 6:46 PM [facility] Comment: Cholesterol, Total Reference Ranges Desirable <200 mg/dL Borderline 200-239 mg/dL High >=240 mg/dL TRIGLYCERIDES 137 <150 mg/dL 01/02/2023 6:46 PM [facility] HDL CHOLESTEROL 37(L) >40 mg/dL 6:46 PM [facility] NON-HDL CHOLESTEROL 98 <145 mg/dl 01/02/2023 6:46 PM [facility] CHOL/HDL RATIO 3.65 <4.50 01/02/2023 6:46 PM [facility] LDL CHOLESTEROL 71 <=130 mg/dL 01/02/2023 6:46 PM [facility] VLDL CHOLESTEROL 27 <=30 mg/dL 01/02/2023 6:46 PM [facility] PROVIDER ORDERED STATUS NOT GIVEN 01/02/2023 6:46 PM [facility] Blood BLOOD SPECIMEN / Unknown IV Start / Unknown 12/29/2022 9:41 AM CDT 12/29/2022 9:45 AM CDT Umberto Johnson MD CHEMISTRY [facility] [address] [place] [address] from Last 3 Months or Most Recently Relevant to Health Maintenance Additional Health Concerns Infection Onset Date Last Indicated MDRO Clearance Comment:Infection Control Note: 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 Do not delete or resolve the infection flag. 07/07/2021 07/07/2021 Advance Directives Documents on File Type Date Recorded Patient Windows Technical Specialist Expl anation Healthcare Directive 07/08/2021 022 * Full Code (Latest Code Status on File) Date Activated Date Inactivated Comments 04/24/2023 2:28 PM 04/25/2023 9:04 PM Question Answer Comments Code Status Discussion: Reviewed Preferences * Full Code Date Activated Date Inactivated Comments 07/07/2021 2:26 PM 07/09/2021 2:37 PM Question Answer Comments Code Status Discussion: Reviewed Preferences * Full Code Date Activated Date Inactivated Comments 03/26/2021 11:45 PM 03/31/2021 5:37 PM Question Answer Comments Code Status Discussion: Reviewed Preferences * Full Code Date Activated Date Inactivated Comments 03/11/2021 5:39 PM 03/19/2021 5:01 PM Question Answer Comments Code Status Discussion: Reviewed Preferences * Full Code Date Activated Date Inactivated Comments 02/06/2019 11:10 AM 02/08/2019 1:03 PM Care Teams Head Teller Relationship Specialty Start Date End Date Yash Roy MD [address] [place] [address] PCP - General Internal Medicine 04/27/23
--- OUTSIDE RECORDS SUMMARY | 2023-09-18 13:57 | XMS_ITS | Clinical Summary ---
Author Organization [facility] Address [address] [address] Care Team Providers Care Chief Load Dispatcher Name Role Phone Ezra Roper MD Primary Care Provider [phone] Source Comments You are receiving this document as you are listed as the primary care provider,follow-up provider, or the patient has been referred to you for consultation.This is in compliance with the Medicare andThe [facility] EHR Incentive Program,which states Providers who transition their patient to another setting of careor provider of care or refers their patient to another provider of care shouldprovide summary care record for each transition of care or referral. [employer] Allergies Active Allergy Reactions Criticality Noted Date Comments Lamotrigine Nausea And Vomiting 04/17/2019 Lisinopril Nausea And Vomiting 04/17/2019 Social History Tobacco Use Types Packs/Day Years Used Date Smoking Tobacco: Never Assessed Sex and Gender Information Value Date Recorded Sex Assigned at Not on file Gender Identity Not on file Sexual Orientation Not on file Last Filed Vital Signs Vital Sign Reading Time Taken Comments Blood Pressure 170/82 04/17/2019 3:06 PM COMPUTER SCIENCE INSTRUCTOR Pulse 84 04/17/2019 3:06 PM COMPUTER SCIENCE INSTRUCTOR Temperature 36.9 ??C (98.5 ??F) 04/17/2019 12:[address] Respiratory Rate 18 04/17/2019 3:06 PM COMPUTER SCIENCE INSTRUCTOR Oxygen Saturation 96% 04/17/2019 3:06 PM COMPUTER SCIENCE INSTRUCTOR Inhaled Oxygen Concentration - - Weight - - Height - - Body Mass Index - - Plan of Treatment Health Maintenance Due Date Last Done Comments Colon Cancer Screening Plan Due 1960 Hep C Screening (Preventive Services) 1960 PSA Screening Discussion 1960 HIV Screening (Preventive Services) 1976 Adult Preventive Visit 1978 Cholesterol 12/07/1995 Zoster/Shingles (1 of 2) 2010 COVID-19 Vaccine ( season) 2022 Influenza (#1) 2023 12/10/2018, 11/03, 11/30/2014, Additional history exists DTaP/Tdap/Td (3 - Tdap) 05/25/2026 05/25/2016, 02/15 Pneumococcal Aged Out 09/01/2014 No longer eligi ble based on patient's age to complete this topic HepA Aged Out No longer eligi ble based on patient's age to complete this topic HepB Aged Out No longer eligi ble based on patient's age to complete this topic Hib Aged Out No longer eligi ble based on patient's age to complete this topic IPV (Polio) Aged Out No longer eligi ble based on patient's age to complete this topic MCV4 Aged Out No longer eligi ble based on patient's age to complete this topic Care Teams Chief Load Dispatcher Relationship Specialty [place] [id number] [address] PCP - General 06/04/10
--- OUTSIDE RECORDS SUMMARY | 2023-09-18 13:57 | XMS_ITS ---
Author Organization [facility] Address [address] [place] [address] Care Team Providers Care Supervisor [employer] Name Role Phone Roopa Almonte MD Unavailable [phone] Maryse BurtonC Unavailable [phone] Roopa Almonte MD Unavailable [phone] Griffin Joshi MD Unavailable Paula Reza MD Primary Care Provider Roopa Almonte MD Unavailable Daylin Ludwig Unavailable Marilin Montaño CNP Unavailable [phone] Esha Dewitt MD Unavailable [phone] Heather Mosquera MD Unavailable [phone] Esha Dewitt MD Unavailable [phone] Valdo Escamilla-C Unavailable [phone] Nohelia Abarca PA-C Unavailable [phone] Heahter Mosquera MD Unavailable [phone] Diabetes Self-Management Education Status:Enrolled (Active) Start date:01/19/2022 Enrollment date:02/23/2022 Current support & services provided:Type 2 Diabetes Management, Individual Education Continued Care and Services Coordination
--- OUTSIDE RECORDS SUMMARY | 2023-09-18 13:57 | XMS_ITS | Encounter Summary ---
Author Organization [facility] Address [address] [place] [address] Care Team Providers Care Publication Specialist Name Role Phone Dixon Carson MD Primary Care Provider Mingo Aldana MD Primary Car e Provider Shahida Sutton FURNACE CARETAKER DOLL SURGEON Primary Care Provi ford Unavailable Herman, Shahida Cummings APRN DOLL SURGEON Unavailable Un available Herman, Shahida Cummings APRN DOLL SURGEON Unavailable Un available Carolynn Ramon RN Unavailable [phone] Augustine Callaway MD Unavailable Brady Lion MD Unavailable Un available Nima FranceC Unavailable [phone] Camille Chandler PA-C Unavailable [phone] Anabela Barakat APRN DOLL SURGEON Unavailable Nima FranceC Unavailable [phone] Basilio Morillo DO Unavailable [phone] Faawd York MD Unavailable [phone] Roopa Almonte MD Unavailable [phone] Augustine Callaway MD Unavailable Maryse Burton PA-C Unavailable Marquita Starkey MD Unavailable Roopa Almonte MD Unavailable [phone] Griffin Joshi MD Unavailable Rina Magallon RN Unavailable Paula Reza MD Primary Care Provider [phone] Griffin Joshi MD Unavailable Roopa Almotne MD Unavailable [facility] hospitalBasilio win DO Unavailable Lydia Bernstein PA-C Unavailable Rosa Maria Love Unavailable [phone] Augustine Callaway MD Unavailable aPula Reza MD Unavailable Keerthi Miner APRN DOLL SURGEON Unavailable Herman, Shahida Cummings APRN DOLL SURGEON Unavailable Un available Porsha Michaels APRN DOLL SURGEON Unavailable [phone] Palua Reza MD Unavailable Herman, Shahida Cummings APRN DOLL SURGEON Unavailable Un available Daylin Ludwig Unavailable [phone] Laurel Velasquez MD Unavailable Daylin Ludwig Unavailable [phone] Paula Reza MD Unavailable Porsha Michaels APRN DOLL SURGEON Unavailable [phone] Laurel Velasquez MD Unavailable Herman, Shahida Cummings APRN DOLL SURGEON Unavailable Un available aMrilin Montaño DOLL SURGEON Unavailable [phone] Esha Dewitt MD Unavailable [phone] Heather Mosquera MD Unavailable [phone] Paula Reza MD Unavailable Esha Dewitt MD Unavailable [phone] Valdo Escamilla PA-C Unavailable Nohelia AbarcaC Unavailable [phone] Heather Mosquera MD Unavailable [phone] Fawad York MD Unavailable [phone] Encounter Details Date Type Department Care Team (Late st Contact Info) Description 08/20/2006 Jake Lancasterporfirio [address] [address] Dixon Carson MD [address] [address] Social History Tobacco Use Types [...] Out COVID-19 02/15/2020 02/15/2020 02/16/2020 2:32 PM ALTO SINGER Rule Out COVID-19 01/05/2021 01/05/2021 01/06/2021 12:57 PM CDT ESBL 01/05/2021 01/05/2021 Rule Out COVID-19 06/30/2021 06/30/2021 07/01/2021 9:34 AM CDT Rule Out COVID-19 07/25/2021 07/25/2021 07/25/2021 8:02 PM CDT documented as of this encounter Care Teams Publication Specialist Relationship Specialty Start Date End Date Dixon Carson MD PCP - General 08/10/03 07/21/09 Mingo Aldana MD PCP - General Family Practice 07/22/09 07/12/14 Shahida Sutton APRN DOLL SURGEON PCP - General Nurse Practitioner 08/17/14 08/04/21 Shahida Sutton APRN DOLL SURGEON PCP - Assigned PCP 07/12/14 05/07/18 Paula Reza MD [address] [facility] [address] [place] [address] PCP - General Internal Medicine 08/05/21 Shahida Sutton APRN DOLL SURGEON Assigned PCP 07/12/14 09/30/21 Carolynn Ramon, KASIE Personal Advocate & Liaison (PAL) 12/17/18 08/07/21 [place] [address] [place] [address] Assigned Musculoskeletal Provider 12/26/19 08/21/20 Brady Lion MD Assigned Heart and Vascular Provider 12/26/19 08/14/20 Nima France PA-C [address] [place] [address] Assigned Surgical Provider 05/19/20 08/21/20 Camille Chandler PA-C [address] [facility] [address] [place] [address] Assigned Neuroscience Provider 05/19/20 09/14/20 Anabela Barakat APRN DOLL SURGEON [address] [place] [address] Assigned Heart and Vascular Provider 08/15/20 08/05/21 Nima France PA-C [address] [facility] [address] [place] [address] Assigned Musculoskeletal Provider 08/22/20 11/13/20 [place] [address] [place] [address] Assigned Musculoskeletal Provider 11/14/20 12/04/20 Fawad York MD [address] [place], [place] [address] Assigned Musculoskeletal Provider 12/05/20 02/05/21 Roopa Almonte MD [address] [facility] [address] [place] [address] Endocrinology, Diabetes, and Metabolism 01/19/21 [place] [address] [facility] [address] [place] [address] Assigned Musculoskeletal Provider 02/06/21 09/16/21 Maryse Burton PA-C [address] [facility] [address] Physician Cuff Setter Overlock Dermatology 04/14/21 Marquita Starkey MD [address] [facility] [address] [place] [address] Internal Medicine 05/06/21 05/06/21 Roopa Almonte MD [address] [facility] [address] [place] [address] Hospitalist Endocrinology, Diabetes, and Metabolism 05/30/21 Griffin Joshi MD [address] [place] [address] Cardiovascular Disease 07/25/21 Rina Magallon RN Lead Provider Scribe 07/29/21 07/11/22 Griffin Joshi MD [address] [place] [address] Assigned Heart and Vascular Provider 08/06/21 10/07/21 Roopa Almonte MD [address] [place], [place] [address] Assigned Endocrinology Provider 09/10/21 [place] [address] [facility] [place] [address] Assigned Musculoskeletal Provider 09/17/21 10/14/21 Lydia Bernstein PA-C [address] [place] [id number] Assigned PCP 10/01/21 10/21/21 Rosa Maria Love CHW Community Health Worker 10/06/21 [place] [address] [place] [address] Assigned Musculoskeletal Provider 10/15/21 04/26/23 Paula Reza MD [address] [place] [address] Assigned PCP 10/22/21 12/23/21 Keerthi Miner APRN DOLL SURGEON [address] [place] [id number] Assigned Heart and Vascular Provider 10/08/21 02/10/22 Shahida Sutton APRN DOLL SURGEON Assigned PCP 12/24/21 03/24/22 Porsha Michaels APRN DOLL SURGEON [address] [place] [address] Assigned Heart and Vascular Provider 02/11/22 05/12/22 Paula Reza MD [address] [place] [address] Assigned PCP 03/25/22 04/07/22 Shahida Sutton APRN DOLL SURGEON [address] [place] [address] Assigned PCP 04/08/22 06/30/22 Daylin Ludwig EP [facility] [address] [place] [address] Cardiac Rehabilitation Therapist 05/16/23 Laurel Velasquez MD [address] [id number] Assigned Heart and Vascular Provider 05/13/22 06/30/22 Daylin Ludwig EP [facility] [address] [place] [id number] Cardiac Rehabilitation Therapist 06/08/22 06/09/23 Paula Reza MD [address] [facility] [address] [place], [place] [address] Assigned PCP 07/01/22 07/07/22 Porsha Michaels APRN DOLL SURGEON [address] [address] Assigned Heart and Vascular Provider 07/01/22 07/07/22 Laurel Velasquez MD [address] [id number] Assigned Heart and Vascular Provider 07/08/22 08/04/22 Shahida Sutton APRN DOLL SURGEON Assigned PCP 07/08/22 09/08/22 Marilin Montaño, DOLL SURGEON [address] [id number] Assigned Heart and Vascular Provider 08/05/22 Esha Dewitt MD [address] [facility] [address] [place], [place] [address] Gastroenterology 09/06/22 Heather Mosquera MD [address] [place], [place] [address] Internal Medicine 09/06/22 Paula Reza MD [address] [facility] [address] [place], [place] [address] Assigned PCP 09/09/22 01/05/23 Esha Dewitt MD [address] [facility] [address] [place], [place] [address] Assigned Gastroenterology Provider 09/23/22 Valdo Escamilla PA-C [address] [facility] [address] [place], [place] [address] Assigned Neuroscience Provider 09/30/22 Nohelia Abarca PA-C [address] [place], [place] [id number] Physician Cuff Setter [facility] Gastroenterology 10/03/22 Heather Mosquera MD [address] [facility] [address] [place], [place] [address] Assigned PCP 01/06/23 Fawad York MD [address] [place], [place] [address] Assigned Musculoskeletal Provider 04/27/23 06/25/23 documented as of this encounter
== END 2023-09-18 13:43 | disposition home or self-care (01) ==
LOC: WOUND 13:42
PROVIDERS: PCP Internal Medicine; Visit Provider Nurse Practitioner Family
DX: L89.323 Pressure ulcer of left buttock, stage 3 (principal); E11.622 Type 2 diabetes mellitus with other skin ulcer; Z79.4 Long term (current) use of insulin; Z79.84 Long term (current) use of oral hypoglycemic drugs
CPT/HCPCS: 11042; G0463

== ENCOUNTER 2023-09-21 08:26 | Outpatient (CLI) | payer BC, SELFPAY ==
--- OUTSIDE RECORDS SUMMARY | 2023-09-21 08:29 | XMS_ITS | Clinical Summary ---
Author Organization [place] Address [address] [place] [address] Care Team Providers Care Recreation Leader Name Role Phone Roopa Almonte MD Unavailable Maryse Burton PA-C Unavailable Roopa Almonte MD Unavailable Griffin Joshi MD Unavailable Paula Reza MD Primary Care Provider Roopa Almonte MD Unavailable Daylin Ludwig Unavailable Marilin Montaño MANUAL LATHE MACHINIST Unavailable [phone] Esha Dewitt MD Unavailable [phone] Heather Mosquera MD Unavailable [phone] Esha Dewitt MD Unavailable [phone] Valdo EscamillaC Unavailable Nohelia Abarca PA-C Unavailable Heather Mosquera MD Unavailable Allergies Active Allergy [...] MG sublingual tabletIndications: 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/06/2003 Overview: QA CONSULTANT:06/10/2019 SR Esophageal reflux 10/06/2003 Resolved Problems Problem [...] Cerebrovascular Disease Mother Musculoskeletal Disorder Mother fibromy algia/Uipvk-Pttafks-Selcb Myocardial Infarction Mother Rheumatoid Arthritis Mother Musculoskeletal [...] Comments Blood Pressure 123/70 02/14/2023 1:45 PM MARKETING CONTENT COORDINATOR Pulse 80 02/14/2023 1:45 PM MARKETING CONTENT COORDINATOR Temperature 36.8 ??C (98.3 ??F) 07/08/2022 7:41 AM CD T Respiratory Rate 20 02/14/2023 1:45 PM MARKETING CONTENT COORDINATOR Oxygen Saturation 94% 02/14/2023 1:45 PM MARKETING CONTENT COORDINATOR Inhaled Oxygen Concentration - - Weight 117.9 [...] Optimize Self-Care Behaviors 90%(03/23/19 23 3:12 PM MARKETING CONTENT COORDINATOR) Angelita Diaz RD Note: I will check [...] Diaz RD Medical Devices Implanted Type Area Raw Sampler Device Identifier Shelf Expiration Date Model / Serial / Lot Medtronic I* [id number] [place] Xt Hf Quad Insole And Heel Stiffener-D Mri [id number] Implanted:03/17 (Quantity not on file) ICD [employer] [id number] C OBALT XT HF QUAD TUNNEL MAN-D MRI / [id number] / Medtronic I* [id number] Attain Performa Mri Surescan [id number] Implanted:03/17 (Quantity not on file) Leads [employer] 4298 CLAUDY IN PERFORMA MRI SURESCAN / [id number] / Medtronic I* 5076 Capsurefix Novus [id number] Implanted:03/17 (Quantity not on file) Leads [employer] 5076 CAPS UREFIX NOVUS / [id number] / Medtronic I* 6935 Sprint Quattro Secure S [id number] Implanted:03/17 (Quantity not on file) Leads [employer] 6935 SPRI NT QUATTRO SECURE S / [id number] / Procedures Procedure Name Priority Date/Time Associated Diagnosis Comments CBC WITH PLATELETS STAT 02/14/2023 10 :20 AM MARKETING CONTENT COORDINATOR CT CHEST/ABDOMEN/PELVIS W CONTRAST Routine 12/29/2022 10:23 AM CDT BASIC METABOLIC PANEL Routine 07/08/2022 7:24 AM CDT COMPREHENSIVE METABOLIC PANEL Routine 07/07/2022 10:33 AM CDT EYE EXAM - HIM SCAN 04/13/2022 1 2:00 AM MARKETING CONTENT COORDINATOR LIPID PROFILE Routine 02/15/2022 10:03 AM MARKETING CONTENT COORDINATOR Chronic systolic congestive heart failure (H) HTN, goal below 140/90 COLOGUARD(EXACT SCIENCES) Routine 01/24/2022 12:00 PM MARKETING CONTENT COORDINATOR Screen for colon cancer HEMOGLOBIN A1C Routine 01/10/2022 9:45 AM MARKETING CONTENT COORDINATOR Type 2 diabetes mellitus with diabetic nephropathy, [...] (ABNORMAL) CBC with platelets (02/14/2023 10:20 AM MARKETING CONTENT COORDINATOR) WBC Count 10.9 4.0 - 11.0 10e3/uL 02/14/2023 10:33 AM MARKETING CONTENT COORDINATOR [facility] RBC Count 4.72 4.40 - 5.90 10e6/uL 02/14/2023 10:33 AM MARKETING CONTENT COORDINATOR [facility] Hemoglobin 10.4(L) 13.3 - 17.7 g/dL 02/14/2023 10:33 AM MARKETING CONTENT COORDINATOR [facility] Hematocrit 34.3(L) 40.0 - 53.0 % 02/14/2023 10:33 AM MARKETING CONTENT COORDINATOR [facility] MCV 73(L) 78 - 100 fL 02/14/2023 10:33 AM MARKETING CONTENT COORDINATOR [facility] MCH 22.0(L) 26.5 - 33.0 pg 02/14/2023 10:33 AM MARKETING CONTENT COORDINATOR [facility] MCHC 30.3(L) 31.5 - 36.5 g/dL 02/14/2023 10:33 AM MARKETING CONTENT COORDINATOR [facility] RDW 16.5(H) 10.0 - 15.0 % 02/14/2023 10:33 AM MARKETING CONTENT COORDINATOR [facility] Platelet Count 400 150 - 450 10e3/uL 02/14/2023 10:33 AM MARKETING CONTENT COORDINATOR LABORATORY Blood BLOOD SPECIMEN / Unknown Intraosseous / Unknown 02/14/2023 10:20 AM MARKETING CONTENT COORDINATOR 02/14/2023 10:29 AM MARKETING CONTENT COORDINATOR [facility] BUMPER MACHINE OPERATOR MANUAL LATHE MACHINIST LAB - BLOOD ORDERABLES [facility] [address] Lab (1st floor, no room number) [place] [address], [facility] [phone] * (ABNORMAL) Basic metabolic panel (07/08/2022 7:24 [...] Lovell MD LAB - BLOOD DENISA AREVALO [facility] Organization Address City/State/ZIP Co de Phone Number LABORATORY [facility] [address] Lab (1st floor, no room number) [place] [address], [facility] [phone] * (ABNORMAL) Comprehensive metabolic panel (07/07/2022 10:33 [...] MD LAB - BLOOD ORDERABL ES [facility]AT[facility] [address] [facility] Lab (1st floor, no room number) [place] [address], [place] [phone] * (ABNORMAL) EYE EXAM - HIM SCAN (04/13/2022 12:00 AM MARKETING CONTENT COORDINATOR) RETINOPATHY POSITIVE(A ) 04/13/2022 Provider Outside OTHER * (ABNORMAL) Lipid Profile (02/15/2022 10:03 AM MARKETING CONTENT COORDINATOR) Cholesterol 178 <200 mg/dL 02/15/2022 3:56 PM MARKETING CONTENT COORDINATOR [facility] Triglycerides 285(H) <150 mg/dL 02/15/2022 3:56 PM MARKETING CONTENT COORDINATOR [facility] Direct Measure HDL 34(L) >=40 mg/dL 02/15/2022 3:56 PM MARKETING CONTENT COORDINATOR [facility] LDL Cholesterol Calculated 87 <=100 mg/dL 02/15/2022 3:56 PM MARKETING CONTENT COORDINATOR [facility] Non HDL Cholesterol 144(H) <130 mg/dL 02/15/2022 3:56 PM MARKETING CONTENT COORDINATOR [facility] Blood STRUCTURE OF RIGHT UPPER LIMB / Unknown Venipuncture / Unknown 02/15/2022 10:03 AM MARKETING CONTENT COORDINATOR 02/15/2022 10:03 AM MARKETING CONTENT COORDINATOR Narrative [facility] - 02/15/2022 3:56 PM MARKETING CONTENT COORDINATOR Cholesterol Desirable: ??<200 mg/dL Triglycerides Normal: ??Less [...] equal to 220 mg/dL Keerthi Miner APRN MANUAL LATHE MACHINIST LAB - BLOOD ORDERABLES [facility] Lab [address] [facility], [address] [place] [address], [facility] [phone] * (ABNORMAL) COLOGUARD(SafetyCulture) (01/24/2022 12:00 PM MARKETING CONTENT COORDINATOR) COLOGUARD-ABSTRAC T Positive( A) Negative 01/29/2022 7:20 AM MARKETING CONTENT COORDINATOR [facility] (CLIA #:[id number]) Comment: POSITIVE TEST RESULT. A positive Cologuard [...] Olmos et al, N Engl J Med 2014;370(14):0241-6223.) Cologuard may produce a false negative or false positive result (no colorectal cancer or precancerous polyp present at colonoscopy follow up). A negative Cologuard test result does not guarantee the absence of CRC or advanced adenoma (pre-cancer). The current Cologuard screening interval is every 3 years. ([place]izen [place] Cancer Society and U.S. Multi-Society Task Force). Cologuard performance data in a 10,000 patient pivotal study using colonoscopy as the reference method can be accessed at the following location: [email or web address].TimePad/results. Additional description of the Cologuard test process, warnings and precautions can be found at www.cologuard.com. Stool specimen (specimen) 01/24/2022 12:00 PM MARKETING CONTENT COORDINATOR 01/25/2022 1:01 PM MARKETING CONTENT COORDINATOR Paula Reza MD LABORATORY Performing Organization Address City/[facility]/ZIP Co de Phone Number [facility] [address] [phone] [facility] (CLIA #:[id number]) [address] [place] [address] * (ABNORMAL) Hemoglobin A1c (01/10/2022 9:45 AM MARKETING CONTENT COORDINATOR) Hemoglobin A1C 8.9(H) 0.0 - 5.6 % 01/10/2022 9:52 AM MARKETING CONTENT COORDINATOR [facility] Comment: Normal <5.7% Prediabetes 5.7-6.4% ?? Diabetes 6.5% or higher Note: Adopted from ADA consensus guidelines. Blood STRUCTURE OF RIGHT UPPER LIMB / Unknown Venipuncture / Unknown 01/10/2022 9:45 AM MARKETING CONTENT COORDINATOR 01/10/2022 9:45 AM MARKETING CONTENT COORDINATOR Narrative [facility] - 01/10/2022 9:52 AM MARKETING CONTENT COORDINATOR Reviewed, ok with previous. Roopa Almonte MD LAB - BLOOD ORDER KEVIN Performing Organization Address City/[facility]/ZIP Co de Phone Number [facility] Lab [address], [address] [place] [address], [place] [phone] * TSH with free T4 reflex (10/03/2021 8:11 AM CDT) TSH 2.97 0.30 - 4.20 uIU/mL 10/03/2021 8:58 AM CDT [facility] Blood STRUCTURE OF RIGHT UPPER LIMB / Unknown Venipuncture / Unknown 10/03/2021 8:11 AM CDT 10/03/2021 8:13 AM CDT Keerthi Miner APRN MANUAL LATHE MACHINIST LAB - BLOOD ORDERABLES [facility] [address] Lab (1st floor, no room number) [place] [address], [facility] [phone] * Albumin Random Urine Quantitative with Creat [...] LAB - URINE ORDERA BLES OX LAB[facility]ATORY [facility] Lab [address] Lab (no room number, 1st floor of clinic) [place] [address], [facility] [phone] * HIV Antigen Antibody Combo (06/04/2020 2:43 PM CDT) HIV Antigen Antibody Combo Nonreactive NR^Nonrea ctive 06/04/2020 8:30 PM CDT [facility] Comment:HIV-1 p24 Ag & HIV-1 /HIV-2 Ab Not Detected Blood 06/04/2020 2:43 PM CDT 06/04/2020 2:44 PM CDT Shahida Sutton APRN, CNP LAB - BLOOD ORDERABLES Performing Organization Address City/[facility]/ZIP Co de Phone Number [facility] [address] [place] [address] * Hepatitis C Screen Reflex to HCV RNA Quant and Genotype (06/04/2020 2:43 PM CDT) Hepatitis C Antibody Nonreactive NR^Nonre active 06/04/2020 8:38 PM CDT [facility] Comment: Assay performance characteristics have not been established for newborns, infants, and children Blood 06/04/2020 2:43 PM CDT 06/04/2020 2:44 PM CDT Shahida Sutton APRN MANUAL LATHE MACHINIST LAB - BLOOD ORDERABLES Performing Organization Address [facility] Co de Phone Number [address] [address] * PHQ-9 DEPRESSION SCREENING ORDER (05/01/2018) PHQ9 SCORE 5 Narrative Pelon Crowe - 05/01/2018 [facility] PROGRESS NOTE Provider Outside OTHER * Fecal colorectal cancer screen (FIT) (10/05/2016 10:45 AM CDT) Occult Blood Scn FIT Negative NEG [facility] Stool specimen (specimen) 10/05/2016 10:45 AM CDT 10/11/2016 11:00 AM CDT Shahida Sutton APRN, CNP LAB - STOOL S ORDERABLES Performing Organization Address City/[facility]/ZIP Co de Phone Number [facility] [address] [place] [address] from Last 3 Months or Most Recently Relevant to Health Maintenance Additional Health Concerns Active Problems Noted Date Diagnosed Date HbA1C Not In Goal 02/23/2022 Diabetes Self-Management Edu cation Needed to Optimize Self-Care Behaviors 02/23/2022 Infection Onset Date Last Indicated ESBL 01/05/2021 01/05/2021 Advance Directives For more information, please contact: [phone] * Full Code (Latest Code Status on [...] walt jung/ legal decision maker Care Teams Recreation Leader Relationship Specialty Start Date End Date Paula Reza MD [address] [place] [address] PCP - General Internal Medicine 08/05/21 Roopa Almonte MD [address] [facility] 200 [place] [address] Endocrinology, Diabetes, and Metabolism 01/19/21 Maryse Burton PA-C [address] [place] [address] Physician Service Writer Advisor Dermatology 04/14/21 Roopa Almonte MD [address] [facility] 200 [place] [address] Hospitalist Endocrinology, Diabetes, and Metabolism 05/30/21 Griffin Joshi MD [address] [facility] [address] [place], [place] [address] Cardiovascular Disease 07/25/21 Roopa Almonte MD [address] [facility] 200 [place], [place] [address] Assigned Endocrinology Provider 09/10/21 Daylin Ludwig EP [facility] [address] [place] [address] Cardiac Rehabilitation Therapist 05/16/23 Marilin Montaño, MANUAL LATHE MACHINIST [address] [place] [address] Assigned Heart and Vascular Provider 08/05/22 Esha Dewitt MD [address] [facility] 36 [place] [address] Gastroenterology 09/06/22 Heather Mosquera MD [address] [facility] [address] [facility] 150 [place] [address] Internal Medicine 09/06/22 Esha Dewitt MD [address] [facility] 36 [place], [place] [address] Assigned Gastroenterology Provider 09/23/22 Valdo Escamilla PA-C [address] [facility] [address] [place], [place] [address] Assigned Neuroscience Provider 09/30/22 Nohelia Abarca PA-C [address] [place] [address] Physician Service Writer Advisor Gastroenterology 10/03/22 Heather Mosquera MD [address] [facility] 150 [place], [place] [address] Assigned PCP 01/06/23
--- OUTSIDE RECORDS SUMMARY | 2023-09-21 08:30 | XMS_ITS ---
Care Plan Created on: September 21, 2023 Mauro Terrell : 1960 Sex: Male Author Organization [place] Address [address] [place] [address] Care Team Providers Care Horse Groomer Name Role Phone Roopa Almonte MD Unavailable [phone] Maryse Burton PA-C Unavailable Roopa Almonte MD Unavailable [phone] Griffin Joshi MD Unavailable Paula Reza MD Primary Care Provider Roopa Almonte MD Unavailable Daylin Ludwig Unavailable Marilin Montaño FILAMENT WOUND PARTS FABRICATOR Unavailable [phone] Esha Dewitt MD Unavailable [phone] Heather Mosquera MD Unavailable [phone] Esha Dewitt MD Unavailable [phone] Valdo EscamillaC Unavailable [phone] Nohelia Abarca PA-C Unavailable [phone] Heather Mosquera MD Unavailable Active Problems [...] 81 mg. Coronary artery disease invo lving hoopa coronary artery of hoopa heart without angina pectoris 02/06/2019 Primary narcolepsy [...] 11/24/2003 Insomnia with sleep apnea 10/06/2003 Overview: SCREENING NURSE:06/10/2019 SR Esophageal reflux 10/06/2003 Resolved Problems Problem [...] to Optimize Self-Care Behaviors 90%(03/23/19 3:12 PM RETAIL AREA MANAGER) Angelita Diaz RD Note: I will [...] monitoring (sensor placement, use of cl or line service person/reader, understanding glucose trends, alerts and alarms, differences [...] 02/23/2022 Refer patient to appropriate extended care produce production team member, as needed (Medication Therapy Management, Behavioral Health, [...] patient; Refer patient to appropriate extended care produce production team member, as needed (Medication Therapy Management, Behavioral Health, [...] monitoring (sensor placement, use of cl or line service person/reader, understanding glucose trends, alerts and alarms, differences [...]
--- OUTSIDE RECORDS SUMMARY | 2023-09-21 08:30 | XMS_ITS | Encounter Summary ---
Author Organization [place] Address [address] [place] [address] Care Team Providers Care Steam Cleaning 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 Name Role Phone Roopa Almonte MD Unavailable [phone] Maryse Burton PA-C Unavailable Roopa Almonte MD Unavailable [phone] Griffin Joshi MD Unavailable Paula Reza MD Primary Care Provider [phone] Roopa Almonte MD Unavailable [phone] Augustine Callaway MD Unavailable Daylin Ludwig Unavailable Daylin Ludwig Unavailable [phone] Marilin Montaño PIGMENT WEIGHER Unavailable [phone] Esha Dewitt MD Unavailable [phone] Heather Mosquera MD Unavailable [phone] Paula Reza MD Unavailable Esha Dewitt MD Unavailable [phone] Valdo EscamillaC Unavailable [phone] Nohelia Abarca PA-C Unavailable [phone] Heather Mosquera MD Unavailable Fawad [place] MD Unavailable [phone] Encounter Details Date Type Department Care Team (Late st Contact Info) Description 10/12/2022 MyC Medical Advice [facility] [place] [address] [facility] [address] [place] [address] Esha Dewitt MD [address] [facility] 36 [place] [address] Social History Tobacco Use Types [...] Optimize Self-Care Behaviors 90%(03/23/19 23 3:12 PM LANGUAGE INSTRUCTOR) Angelita Diaz RD Note: I will check [...] documented as of this encounter Care Teams Steam Cleaning 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 Relationship Specialty Start Date End Date Paula Reza MD [address] [facility] 200 [place] [address] PCP - General Internal Medicine 08/05/21 Roopa Almonte MD [address] [facility] 200 [place] [address] Endocrinology, Diabetes, and Metabolism 01/19/21 Maryse Burton, PAAna MariaC [address] [place] [address] Physician Process Maintenance Technician Dermatology 04/14/21 Roopa Almonte MD [address] [facility] 200 [place] [address] Hospitalist Endocrinology, Diabetes, and Metabolism 05/30/21 Griffin Joshi MD [address] [facility] [address] [place] [address] Cardiovascular Disease 07/25/21 Roopa Almonte MD [address] [facility] 200 [place], [place] [address] Assigned Endocrinology Provider 09/10/21 [place] [address] [facility] 300 [place] [address] Assigned Musculoskeletal Provider 10/15/21 04/26/23 Daylin Ludwig EP [facility] [address] [place] [address] Cardiac Rehabilitation Therapist 05/16/23 Daylin Ludwig EP [facility] [address] [place] [address] Cardiac Rehabilitation Therapist 06/08/22 06/09/23 Marilin Montaño, PIGMENT WEIGHER [address] [place] [address] Assigned Heart and Vascular Provider 08/05/22 Esha Dewitt MD [address] [facility] 36 [place], [place] [address] Gastroenterology 09/06/22 Heather Mosquera MD [address] [place], [place] [address] Internal Medicine 09/06/22 Paula Reza MD [address] [facility] 200 [place], [place] [address] Assigned PCP 09/09/22 01/05/23 Esha Dewitt MD [address] [facility] 36 [place], [place] [address] Assigned Gastroenterology Provider 09/23/22 Valdo Escamilla PA-C [address] [place] [address] Assigned Neuroscience Provider 09/30/22 Nohelia Abarca PA-C [address] [place] [address] Physician Process Maintenance Technician Gastroenterology 10/03/22 Heather Mosquera MD [address] [facility] 150 [place] [address] Assigned PCP 01/06/23 Fawad York MD [address] [place] [address] Assigned Musculoskeletal Provider 04/27/23 06/25/23 documented as of this encounter
--- OUTSIDE RECORDS SUMMARY | 2023-09-21 08:30 | XMS_ITS | Encounter Summary ---
Author Organization [place] Address [address] [place] [address] Care Team Providers Care Pathology Laboratory Technologist Name Role Phone Roopa Almonte MD Unavailable [phone] Maryse Burton PA-C Unavailable Roopa Almonte MD Unavailable [phone] Griffin Joshi MD Unavailable Paula Reza MD Primary Care Provider [phone] Roopa Almonte MD Unavailable [phone] Augustine Callaway MD Unavailable Daylin Ludwig Unavailable Daylin Ludwig Unavailable [phone] Marilin Montaño ASSEMBLER PIANO Unavailable [phone] Esha Dewitt MD Unavailable [phone] Heather Mosquera MD Unavailable [phone] Paula Reza MD Unavailable Esha Dewitt MD Unavailable [phone] Valdo EscamillaC Unavailable [phone] Nohelia Abarca PA-C Unavailable [phone] Heather Mosquera MD Unavailable [phone] Fawad York MD Unavailable [phone] Encounter Details Date Type Department Care Team (Late st Contact Info) Description 10/13/2022 MyC Medical Advice [facility] [place] [address] [facility] [address] [place] [address] Yareli Flynn CMA Social History [...] Optimize Self-Care Behaviors 90%(03/23/19 23 3:12 PM GUEST ADVISOR) Angelita Diaz RD Note: I will check [...] documented as of this encounter Care Teams Pathology Laboratory Technologist Relationship Specialty Start Date End Date Paula Reza MD [address] [facility] 200 [place] [address] PCP - General Internal Medicine 08/05/21 Roopa Almonte MD [address] [facility] 200 [place] [address] Endocrinology, Diabetes, and Metabolism 01/19/21 Maryse Burton PA-C [address] [place] [address] Physician Candles Pourer Dermatology 04/14/21 Roopa Almonte MD [address] [facility] 200 [place] [address] Hospitalist Endocrinology, Diabetes, and Metabolism 05/30/21 Griffin Joshi MD [address] [facility] [address] [place] [address] Cardiovascular Disease 07/25/21 Roopa Almonte MD [address] [facility] 200 [place], [place] [address] Assigned Endocrinology Provider 09/10/21 [place] [address] [facility] 300 [place] [address] Assigned Musculoskeletal Provider 10/15/21 04/26/23 Daylin Ludwig EP [facility] [address] [place] [address] Cardiac Rehabilitation Therapist 05/16/23 Daylin Ludwig EP [facility] [address] [place] [address] Cardiac Rehabilitation Therapist 06/08/22 06/09/23 Marilin Montaño, ASSEMBLER PIANO [address] [place] [address] Assigned Heart and Vascular Provider 08/05/22 Esha Dewitt MD 420 [facility] 36 [place] [address] Gastroenterology 09/06/22 Heather Mosquera MD [address] [place] [address] Internal Medicine 09/06/22 Paula Reza MD [address] [facility] 200 [place] [address] Assigned PCP 09/09/22 01/05/23 Esha Dewitt MD 420 [facility] 36 [place] [address] Assigned Gastroenterology Provider 09/23/22 Valdo Escamilla PA-C [address] [place], [place] [address] Assigned Neuroscience Provider 09/30/22 Nohelia Abarca PA-C [address] [place], [place] [address] Physician Candles Pourer Gastroenterology 10/03/22 Heather Mosquera MD [address] [address] Assigned PCP 01/06/23 Fawad York MD 909 [place] [address] Assigned Musculoskeletal Provider 04/27/23 06/25/23 documented as of this encounter
--- OUTSIDE RECORDS SUMMARY | 2023-09-21 08:30 | XMS_ITS | Encounter Summary ---
Author Organization [place] Address [address] [place] [address] Care Team Providers Care Dioramist Name Role Phone Roopa Almonte MD Unavailable [phone] Maryse Burton PA-C Unavailable Roopa Almonte MD Unavailable [phone] Griffin Joshi MD Unavailable Paula Reza MD Primary Care Provider [phone] Roopa Almonte MD Unavailable [phone] Augustine Callaway MD Unavailable Daylin Ludwig Unavailable Daylin Ludwig Unavailable [phone] Marilin Montaño GAS LINE SERVICER Unavailable [phone] Esha Dewitt MD Unavailable [phone] Heather Mosquera MD Unavailable [phone] Paula Reza MD Unavailable Esha Dewitt MD Unavailable [phone] Valdo EscamillaC Unavailable [phone] Nohelia Abarca PA-C Unavailable [phone] Heather Mosquera MD Unavailable Fawad oYrk MD Unavailable Encounter Details Date Type Department Care Team (Late st Contact Info) Description 11/20/2022 MyC Medical Advice [facility] [address] [facility] [address] [place] [address] Karmen Nicolas, [...] Optimize Self-Care Behaviors 90%(03/23/19 23 3:12 PM STUMP BLOWER) Angelita Diaz RD Note: I will check [...] documented as of this encounter Care Teams Dioramist Relationship Specialty Start Date End Date Paula Reza MD [address] [facility] 200 [place], [place] [address] PCP - General Internal Medicine 08/05/21 Roopa Almonte MD [address] [facility] 200 [place] [address] Endocrinology, Diabetes, and Metabolism 01/19/21 Maryse Burton PA-C [address] [place] [address] Physician Manager Gyn Dermatology 04/14/21 Roopa Almonte MD [address] [facility] 200 [place] [address] Hospitalist Endocrinology, Diabetes, and Metabolism 05/30/21 Griffin Joshi MD [address] [facility] [address] [place] [address] Cardiovascular Disease 07/25/21 Roopa Almonte MD [address] 200 [place], [place] [address] Assigned Endocrinology Provider 09/10/21 [place] [address] [facility] 300 [place] [address] Assigned Musculoskeletal Provider 10/15/21 04/26/23 Daylin Ludwig EP [facility] [address] [place] [address] Cardiac Rehabilitation Therapist 05/16/23 Daylin Ludwig EP [facility] [address] [place] [address] Cardiac Rehabilitation Therapist 06/08/22 06/09/23 Marilin Montaño CNP [address] [place] [address] Assigned Heart and Vascular Provider 08/05/22 Esha Dewitt MD 420 [facility] 36 [place] [address] MD Gastroenterology 09/06/22 Heather Mosquera MD [address] [place] [address] Internal Medicine 09/06/22 Paula Reza MD [address] 200 [place], [place] [address] Assigned PCP 09/09/22 01/05/23 Esha Dewitt MD 420 [facility] 36 [place] [address] Assigned Gastroenterology Provider 09/23/22 Valdo Escamilla PA-C [address] [place] [address] Assigned Neuroscience Provider 09/30/22 Nohelia Abarca PA-C [address] [place] [address] Physician Manager Gyn Gastroenterology 10/03/22 Heather Mosquera MD [address] [facility] 150 [place] [address] Assigned PCP 01/06/23 Fawad York MD 9 [place] [address] Assigned Musculoskeletal Provider 04/27/23 06/25/23 documented as of this encounter
--- OUTSIDE RECORDS SUMMARY | 2023-09-21 08:30 | XMS_ITS | Encounter Summary ---
Author Organization [place] Address [address] [place] [address] Care Team Providers Care Abrasive Sawyer Name Role Phone Roopa Almonte MD Unavailable [phone] Maryse Burton-C Unavailable Roopa Almonte MD Unavailable [phone] Griffin Joshi MD Unavailable Paula Reza MD Primary Care Provider Roopa Almonte MD Unavailable [phone] Augustine Callaway MD Unavailable Daylin Ludwig Unavailable Daylin Ludwig Unavailable [phone] Marilin Montaño PHOTOGRAPHY SALES ASSOCIATE Unavailable [phone] Esha Dewitt MD Unavailable [phone] Heather Mosquera MD Unavailable [phone] Esha Dewitt MD Unavailable Valdo Escamilla PA-C Unavailable [phone] Nohelia Abarca-C Unavailable [phone] Heather Mosquera MD Unavailable Fawad York MD Unavailable Encounter Details Date Type Department Care Team (Late st Contact Info) Description 01/29/2023 MyC Medical Advice [facility] Gastroenterology Clinic [address] 4th [place] [address] Rina Levin, KASIE Social History [...] to Optimize Self-Care Behaviors 90%(03/23/19 3:12 PM SUPERVISOR ENROBING) Angelita Diaz RD Note: I will check [...] documented as of this encounter Care Teams Abrasive Sawyer Relationship Specialty Start Date End Date Paula Reza MD [address] [facility] 200 [place] [address] PCP - General Internal Medicine 08/05/21 Roopa Almonte MD [address] [facility] 200 [place] [address] Endocrinology, Diabetes, and Metabolism 01/19/21 Maryse Burton, PAAna MariaC 5200 [place] [address] Physician Associate Publisher Dermatology 04/14/21 Roopa Almonte MD [address] [address] Hospitalist Endocrinology, Diabetes, and Metabolism 05/30/21 Griffin Joshi MD 6405 [facility] ASHLI [facility] [address] [place] [address] Cardiovascular Disease 07/25/21 Roopa Almonte MD [address] [place] [address] 200 [place], [place] [address] Assigned Endocrinology Provider 09/10/21 [place] [address] [facility] 300 [place] [address] Assigned Musculoskeletal Provider 10/15/21 04/26/23 Daylin Ludwig EP [facility] [address] [place] [address] Cardiac Rehabilitation Therapist 05/16/23 Daylin Ludwig EP [facility] [address] [place] [address] Cardiac Rehabilitation Therapist 06/08/22 06/09/23 Marilin Montaño, PHOTOGRAPHY SALES ASSOCIATE [address] [place] [address] Assigned Heart and Vascular Provider 08/05/22 Esha Dewitt MD 420 [facility] 36 [place] [address] MD Gastroenterology 09/06/22 Heather Mosquera MD 6545 [facility] 150 [place] [address] Internal Medicine 09/06/22 Esha Dewitt MD [address] [address] Assigned Gastroenterology Provider 09/23/22 Valdo Escamilla PA-C 6363 [facility] 103 [place] [address] Assigned Neuroscience Provider 09/30/22 Nohelia Abarca PA-C 2450 [place] [address] Physician Associate Publisher Gastroenterology 10/03/22 Heather Mosquera MD [address] [facility] [address] [facility] 150 [place], [place] [address] Assigned PCP 01/06/23 Fawad York MD 9[address] [place], [place] [address] Assigned Musculoskeletal Provider 04/27/23 06/25/23 documented as of this encounter
--- OUTSIDE RECORDS SUMMARY | 2023-09-21 08:30 | XMS_ITS | Referral Summary ---
Author Organization [place] Address [address] [place] [address] Care Team Providers Care Supervisor Rework Name Role Phone Roopa Almonte MD Unavailable Maryse Burton PA-C Unavailable [phone] Roopa Almonte MD Unavailable Griffin Joshi MD Unavailable Paula Reza MD Primary Care Provider Roopa Almonte MD Unavailable Daylin Ludwig Unavailable Marilin Montaño FRONT MAN Unavailable Esha Dewitt MD Unavailable [phone] Heather Mosquera MD Unavailable Esha Dewitt MD Unavailable [phone] Valdo EscamillaC Unavailable Nohelia Abarca PA-C Unavailable [phone] Heather Mosquera MD Unavailable Allergies Active [...] MG sublingual tabletIndications: 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 SR Esophageal reflux 10/06/2003 Resolved Problems Problem [...] Comments Blood Pressure 123/70 02/14/2023 1:45 PM DISPENSER OPERATOR Pulse 80 02/14/2023 1:45 PM DISPENSER OPERATOR Temperature 36.8 ??C (98.3 ??F) 07/08/2022 7:41 AM CD T Respiratory Rate 20 02/14/2023 1:45 PM DISPENSER OPERATOR Oxygen Saturation 94% 02/14/2023 1:45 PM DISPENSER OPERATOR Inhaled Oxygen Concentration - - Weight 117.9 [...] Optimize Self-Care Behaviors 90%(03/23/19 23 3:12 PM DISPENSER OPERATOR) Angelita Diaz RD Note: I will [...] Pemberton RD Medical Devices Implanted Type Area Concrete Smoother Device Identifier Shelf Expiration Date Model / Serial / Lot Medtronic I* [id number] Elizabeth Xt Hf Quad Outpatient Physical Therapist Assistant-D Mri [id number] Implanted:03/17 (Quantity not on file) ICD [employer] [id number] OBALT XT HF QUAD SEAMER ELASTIC BAND-D MRI / [id number] / Medtronic I* [id number] Attain Performa Mri Surescan [id number] Implanted:03/17 (Quantity not on file) Leads [employer] 4298 CLAUDY IN PERFORMA MRI SURESCAN / [id number] / Medtronic I* 5076 Capsurefix Novus [id number] Implanted:03/17 (Quantity not on file) Leads [employer] 5076 CAPS UREFIX NOVUS / [id number] / Medtronic I* 6935 Sprint Quattro Secure S [id number] Implanted:03/17 (Quantity not on file) Leads [employer] 6935 SPRI NT QUATTRO SECURE S / [id number] / Procedures Procedure Name Priority Date/Time Associated Diagnosis Comments CBC WITH PLATELETS STAT 02/14/2023 10 :[address] CHEST/ABDOMEN/PELVIS W CONTRAST Routine 12/29/2022 10:23 AM CDT BASIC METABOLIC PANEL Routine 07/08/2022 7:24 AM CDT COMPREHENSIVE METABOLIC PANEL Routine 07/07/2022 10:33 AM CDT EYE EXAM - HIM SCAN 04/13/2022 1 2:00 AM DISPENSER OPERATOR LIPID PROFILE Routine 02/15/2022 10:03 AM DISPENSER OPERATOR Chronic systolic congestive heart failure (H) HTN, goal below 140/90 COLOGUARD([employer] SCI[employer]ES) Routine 01/24/2022 12:00 PM DISPENSER OPERATOR Screen for colon cancer HEMOGLOBIN A1C Routine 01/10/2022 9:45 AM DISPENSER OPERATOR Type 2 diabetes mellitus with diabetic nephropathy, [...] (ABNORMAL) CBC with platelets (02/14/2023 10:20 AM DISPENSER OPERATOR) WBC Count 10.9 4.0 - 11.0 10e3/uL 02/14/2023 10:33 AM DISPENSER OPERATOR [facility] RBC Count 4.72 4.40 - 5.90 10e6/uL 02/14/2023 10:33 AM DISPENSER OPERATOR [facility] Hemoglobin 10.4(L) 13.3 - 17.7 g/dL 02/14/2023 10:33 AM DISPENSER OPERATOR [facility] Hematocrit 34.3(L) 40.0 - 53.0 % 02/14/2023 10:33 AM DISPENSER OPERATOR [facility] MCV 73(L) 78 - 100 fL 02/14/2023 10:33 AM DISPENSER OPERATOR [facility] MCH 22.0(L) 26.5 - 33.0 pg 02/14/2023 10:33 AM DISPENSER OPERATOR LABORATORY MCHC 30.3(L) 31.5 - 36.5 g/dL 02/14/2023 10:33 AM DISPENSER OPERATOR LABORATORY RDW 16.5(H) 10.0 - 15.0 % 02/14/2023 10:33 AM DISPENSER OPERATOR [facility] Platelet Count 400 150 - 450 10e3/uL 02/14/2023 10:33 AM DISPENSER OPERATOR LABORATORY Blood BLOOD SPECIMEN / Unknown Intraosseous / Unknown 02/14/2023 10:20 AM DISPENSER OPERATOR 02/14/2023 10:29 AM DISPENSER OPERATOR Susannahgiorgio [facility] MARINE FIRER FRONT MAN LAB - BLOOD ORDERABLES [facility] [address] [facility] Lab (1st floor, no room number) [place] [address], [facility] [phone] * (ABNORMAL) Basic metabolic panel (07/08/2022 7:24 [...] Lovell MD LAB - BLOOD DENISA AREVALO [facility] Organization Address City/State/ZIP Co de Phone Number LABORATORY [facility] [address] [facility] Lab (1st floor, no room number) [place] [address] [phone] * (ABNORMAL) Comprehensive metabolic panel (07/07/2022 10:33 [...] MD LAB - BLOOD ORDERABL ES LABORATORY [facility] [address] Lab (1st floor, no room number) [place] [address], [facility] [phone] * (ABNORMAL) EYE EXAM - HIM SCAN (04/13/2022 12:00 AM DISPENSER OPERATOR) RETINOPATHY POSITIVE(A ) 04/13/2022 Provider Outside OTHER * (ABNORMAL) Lipid Profile (02/15/2022 10:03 AM DISPENSER OPERATOR) Cholesterol 178 <200 mg/dL 02/15/2022 3:56 PM DISPENSER OPERATOR [facility] Triglycerides 285(H) <150 mg/dL 02/15/2022 3:56 PM DISPENSER OPERATOR [facility] Direct Measure HDL 34(L) >=40 mg/dL 02/15/2022 3:56 PM DISPENSER OPERATOR [facility] LDL Cholesterol Calculated 87 <=100 mg/dL 02/15/2022 3:56 PM DISPENSER OPERATOR [facility] Non HDL Cholesterol 144(H) <130 mg/dL 02/15/2022 3:56 PM DISPENSER OPERATOR [facility] Blood STRUCTURE OF RIGHT UPPER LIMB / Unknown Venipuncture / Unknown 02/15/2022 10:03 AM DISPENSER OPERATOR 02/15/2022 10:03 AM DISPENSER OPERATOR Narrative [facility] - 02/15/2022 3:56 PM DISPENSER OPERATOR Cholesterol Desirable: ??<200 mg/dL Triglycerides Normal: ??Less [...] equal to 220 mg/dL Keerthi Miner APRN FRONT MAN LAB - BLOOD ORDERABLES [facility] Core Lab [address] [facility], Room [address] [place] [address], [facility] [phone] * (ABNORMAL) COLOGUARD(Tech [employer]tail) (01/24/2022 12:00 PM DISPENSER OPERATOR) COLOGUARD-ABSTRAC T Positive( A) Negative 01/29/2022 7:20 AM DISPENSER OPERATOR [facility] (CLIA #:[id number]) Comment: POSITIVE TEST RESULT. A positive Cologuard [...] Gilmore. et al, N Engl J Med 2014;370(14):8305-3225.) Cologuard may produce a false negative or false positive result (no colorectal cancer or precancerous polyp present at colonoscopy follow up). A negative Cologuard test result does not guarantee the absence of CRC or advanced adenoma (pre-cancer). The current Cologuard screening interval is every 3 years. ([place] Cancer Society and U.S. Multi-Society Task Force). Cologuard performance data in a 10,000 patient pivotal study using colonoscopy as the reference method can be accessed at the following location: www.Everpay.GVISP 1/results. Additional description of the Cologuard test process, warnings and precautions can be found at www.cologjiglrd.com. Stool specimen (specimen) 01/24/2022 12:00 PM DISPENSER OPERATOR 01/25/2022 1:01 PM DISPENSER OPERATOR Paula Reza MD LABORATORY Performing Organization Address City/[facility]/ZIP Co de Phone Number [facility] [address] [phone] [facility] (CLIA #:[id number]) [address] [place] [address] * (ABNORMAL) Hemoglobin A1c (01/10/2022 9:45 AM DISPENSER OPERATOR) Hemoglobin A1C 8.9(H) 0.0 - 5.6 % 01/10/2022 9:52 AM DISPENSER OPERATOR [facility] Comment: Normal <5.7% Prediabetes 5.7-6.4% ?? Diabetes 6.5% or higher Note: Adopted from ADA consensus guidelines. Blood STRUCTURE OF RIGHT UPPER LIMB / Unknown Venipuncture / Unknown 01/10/2022 9:45 AM DISPENSER OPERATOR 01/10/2022 9:45 AM DISPENSER OPERATOR Narrative [facility] - 01/10/2022 9:52 AM DISPENSER OPERATOR Reviewed, ok with previous. Roopa Almonte MD LAB - BLOOD ORDER KEVIN [facility] Lab [address] [facility], [address] [place] [address], [place] [phone] * TSH with free T4 reflex (10/03/2021 8:11 AM CDT) TSH 2.97 0.30 - 4.20 uIU/mL 10/03/2021 8:58 AM CDT [facility] Blood STRUCTURE OF RIGHT UPPER LIMB / Unknown Venipuncture / Unknown 10/03/2021 8:11 AM CDT 10/03/2021 8:13 AM CDT Keerthi Miner DUANE FRONT MAN LAB - BLOOD ORDERABLES [facility] [address] Lab (1st floor, no room number) [place] [address], [facility] [phone] * Albumin Random Urine Quantitative with Creat [...] LAB - URINE ORDERA BLES OX LABORATORY [facility] Lab [address] Lab (no room number, 1st floor of clinic) [place] [address], [facility] [phone] * HIV Antigen Antibody Combo (06/04/2020 2:43 PM CDT) HIV Antigen Antibody Combo Nonreactive NR^Nonrea ctive 06/04/2020 8:30 PM CDT [facility] Comment:HIV-1 p24 Ag & HIV-1 /HIV-2 Ab Not Detected Blood 06/04/2020 2:43 PM CDT 06/04/2020 2:44 PM CDT Shahida Sutton APRN, CNP LAB - BLOOD ORDERABLES Performing Organization Address City/[facility]/ZIP Co de Phone Number [address] [address] * Hepatitis C Screen Reflex to HCV RNA Quant and Genotype (06/04/2020 2:43 PM CDT) Hepatitis C Antibody Nonreactive NR^Nonre active 06/04/2020 8:38 PM CDT [facility] Comment: Assay performance characteristics have not been established for newborns, infants, and children Blood 06/04/2020 2:43 PM CDT 06/04/2020 2:44 PM CDT Shahida Sutton APRN, CNP LAB - BLOOD ORDERABLES Performing Organization Address [facility] Co de Phone Number [address] [address] * PHQ-9 DEPRESSION SCREENING ORDER (05/01/2018) PHQ9 SCORE 5 Narrative Pelon Crowe - 05/01/2018 [facility] PROGRESS NOTE Provider Outside OTHER * Fecal colorectal cancer screen (FIT) (10/05/2016 10:45 AM CDT) Occult Blood Scn FIT Negative NEG [facility] Stool specimen (specimen) 10/05/2016 10:45 AM CDT 10/11/2016 11:00 AM CDT Shahida Sutton APRN, CNP LAB - STOOL S ORDERABLES Performing Organization Address City/[facility]/ZIP Co de Phone Number [facility] [address] [place] [address] from Last 3 Months or Most Recently Relevant to Health Maintenance Additional Health Concerns Active Problems Noted Date Diagnosed Date HbA1C Not In Goal 02/23/2022 Diabetes Self-Management Edu cation Needed to Optimize Self-Care Behaviors 02/23/2022 Infection Onset Date Last Indicated ESBL 01/05/2021 01/05/2021 Advance Directives For more information, please contact: [phone] * Full Code (Latest Code Status on [...] walt jung/ legal decision maker Care Teams Supervisor Rework Relationship Specialty Start Date End Date Paula Reza MD [address] [facility] 200 [place] [address] PCP - General Internal Medicine 08/05/21 Roopa Almonte MD [address] [facility] [address] 200 [place] [address] Endocrinology, Diabetes, and Metabolism 01/19/21 Maryse Burton PA-C 5[address] [place] [address] Physician Community Liaison Officer Dermatology 04/14/21 Roopa Almonte MD [address] [facility] 200 [place] [address] Hospitalist Endocrinology, Diabetes, and Metabolism 05/30/21 Griffin Joshi MD [address] [facility] [address] [place], [place] [address] Cardiovascular Disease 07/25/21 Roopa Almonte MD [address] [place], [place] [address] Assigned Endocrinology Provider 09/10/21 Daylin Ludwig EP [facility] [address] [place], [place] [address] Cardiac Rehabilitation Therapist 05/16/23 Marilin Montaño, FRONT MAN [address] [place] [address] Assigned Heart and Vascular Provider 08/05/22 Esha Dewitt MD 420 [facility] 36 [place], [place] [address] Gastroenterology 09/06/22 Heather Mosquera MD [address] [facility] [address] [facility] 150 [place] [address] Internal Medicine 09/06/22 Esha Dewitt MD 420 [facility] 36 [place] [address] Assigned Gastroenterology Provider 09/23/22 Valdo Escamilla PA-C 6363 [facility] 103 [place] [address] Assigned Neuroscience Provider 09/30/22 Nohelia Abarca PA-C 2450 [facility] [place] [address] Physician Community Liaison Officer Gastroenterology 10/03/22 Heather Mosquera MD 6545 [facility] 150 [place] [address] Assigned PCP 01/06/23
--- OUTSIDE RECORDS SUMMARY | 2023-09-21 08:30 | XMS_ITS | Encounter Summary ---
Author Organization [place] Address [address] [place] [address] Care Team Providers Care Cheese Cooker Name Role Phone Roopa Almonte MD Unavailable [phone] Maryse Burton-C Unavailable [phone] Roopa Almonte MD Unavailable [phone] Griffin Joshi MD Unavailable Paula Reza MD Primary Care Provider Roopa Almonte MD Unavailable [phone] Augustine Callaway MD Unavailable Daylin Ludwig Unavailable Daylin Ludwig Unavailable [phone] Marilin Montaño NURSE DISCHARGE PLANNER Unavailable [phone] Esha Dewitt MD Unavailable [phone] Heather Mosquera MD Unavailable [phone] Esha Dewitt MD Unavailable [phone] Valdo Escamilla PA-C Unavailable [phone] Nohelia Abarca-C Unavailable [phone] Heather Mosquera MD Unavailable Fawad York MD Unavailable [phone] Encounter Details Date Type Department Care Team (Late st Contact Info) Description 01/29/2023 MyC Medical Advice [facility] Gastroenterology Clinic [address] 4th [place] [address] Rina Levin, KASIE Social History [...] to Optimize Self-Care Behaviors 90%(03/23/19 3:12 PM STRAIGHT TOOTH GEAR GENERATOR OPERATOR) Angelita Diaz RD Note: I will [...] documented as of this encounter Care Teams Cheese Cooker Relationship Specialty Start Date End Date Paula Reza MD [address] [facility] 200 [place] [address] PCP - General Internal Medicine 08/05/21 Roopa Almonte MD [address] [facility] 200 [place] [address] Endocrinology, Diabetes, and Metabolism 01/19/21 Maryse Burton, PAAna MariaC 5200 [place] [address] Physician Database Reporting Consultant Dermatology 04/14/21 Roopa Almonte MD [address] [address] Hospitalist Endocrinology, Diabetes, and Metabolism 05/30/21 Griffin Joshi MD 6405 [facility] ASHLI [facility] [address] [place] [address] Cardiovascular Disease 07/25/21 Roopa Almonte MD [address] [place] [address] 200 [place], [place] [address] Assigned Endocrinology Provider 09/10/21 [place] [address] [facility] 300 [place] [address] Assigned Musculoskeletal Provider 10/15/21 04/26/23 Daylin Ludwig EP [facility] [address] [address] Cardiac Rehabilitation Therapist 05/16/23 Daylin Ludwig EP [facility] [address] [address] Cardiac Rehabilitation Therapist 06/08/22 06/09/23 Marilin Montaño, NURSE DISCHARGE PLANNER 6405 [place] [address] Assigned Heart and Vascular Provider 08/05/22 Esha Dewitt MD 420 [facility] 36 [place] [address] MD Gastroenterology 09/06/22 Heather Mosquera MD 6545 [facility] 150 [place] [address] Internal Medicine 09/06/22 Esha Dewitt MD [address] [address] Assigned Gastroenterology Provider 09/23/22 Valdo Escamilla PA-C 6363 [facility] 103 [place] [address] Assigned Neuroscience Provider 09/30/22 Nohelia Abarca PA-C 2450 [place] [address] Physician Database Reporting Consultant Gastroenterology 10/03/22 Heather Mosquera MD [address] [facility] [address] [facility] 150 [place], [place] [address] Assigned PCP 01/06/23 Fawad York MD 909 [place], [place] [address] Assigned Musculoskeletal Provider 04/27/23 06/25/23 documented as of this encounter
--- OUTSIDE RECORDS SUMMARY | 2023-09-21 08:30 | XMS_ITS | Encounter Summary ---
Author Organization [place] Address [address] [place] [address] Care Team Providers Care Quarantine Officer Name Role Phone Roopa Almonte MD Unavailable [phone] Maryse Burton PA-C Unavailable Roopa Almonte MD Unavailable [phone] Griffin Joshi MD Unavailable Paula Reza MD Primary Care Provider [phone] Roopa Almonte MD Unavailable [phone] Augustine Callaway MD Unavailable Daylin Ludwig Unavailable Daylin Ludwig Unavailable [phone] Marilin Montaño LAW WRITER Unavailable [phone] Esha Dewitt MD Unavailable [phone] Heather Mosquera MD Unavailable [phone] Paula Reza MD Unavailable Esha Dewitt MD Unavailable [phone] Valdo EscamillaC Unavailable [phone] Nohelia Abarca PA-C Unavailable [phone] Heather Mosquera MD Unavailable Fawad York MD Unavailable Encounter Details Date Type Department Care Team (Late st Contact Info) Description 10/19/2022 MyC Medical Advice [facility] [address] 4th [place] [address] Paz Zavala, RN Social History [...] to Optimize Self-Care Behaviors 90%(03/23/19 3:12 PM OUTREACH REP) Angelita Diaz RD Note: I will check [...] documented as of this encounter Care Teams Quarantine Officer Relationship Specialty Start Date End Date Paula Reza MD [address] [facility] 200 [place] [address] PCP - General Internal Medicine 08/05/21 Roopa Almonte MD [address] [facility] 200 [place] [address] Endocrinology, Diabetes, and Metabolism 01/19/21 Maryse Burton PA-C [address] [place], [place] 8[address] Physician Couturiere Dermatology 04/14/21 Roopa Almonte MD [address] [facility] 200 [place] [address] Hospitalist Endocrinology, Diabetes, and Metabolism 05/30/21 Griffin Joshi MD [address] [facility] [address] [place] [address] Cardiovascular Disease 07/25/21 Roopa Almonte MD [address] [facility] 200 [place], [place] [address] Assigned Endocrinology Provider 09/10/21 [place] [address] [facility] 300 [place] [address] Assigned Musculoskeletal Provider 10/15/21 04/26/23 Daylin Ludwig EP [facility] [address] [address] Cardiac Rehabilitation Therapist 05/16/23 Daylin Ludwig EP [facility] [address] [place] 711845 Cardiac Rehabilitation Therapist 06/08/22 06/09/23 Marilin Montaño, LAW WRITER [address] [address] Assigned Heart and Vascular Provider 08/05/22 Esha Dewitt MD 420 [facility] 36 [place], [place] [address] MD Gastroenterology 09/06/22 Heather Mosquera MD [address] [place] [address] Internal Medicine 09/06/22 Paula Reza MD [address] [facility] 200 [place] [address] Assigned PCP 09/09/22 01/05/23 Esha Dewitt MD 420 [facility] 36 [place] [address] Assigned Gastroenterology Provider 09/23/22 Valdo Escamilla PA-C [address] [place], [place] [address] Assigned Neuroscience Provider 09/30/22 Nohelia Abarca PA-C [address] [place], [place] [address] Physician Couturiere Gastroenterology 10/03/22 Heather Mosquera MD [address] [address] Assigned PCP 01/06/23 Fawad York MD 9 [place] [address] Assigned Musculoskeletal Provider 04/27/23 06/25/23 documented as of this encounter
--- OUTSIDE RECORDS SUMMARY | 2023-09-21 08:30 | XMS_ITS | Encounter Summary ---
Author Organization [place] Address [address] [place] [address] Care Team Providers Care Education Program Coordinator Name Role Phone Roopa Almonte MD Unavailable [phone] Maryse Burton PA-C Unavailable Roopa Almonte MD Unavailable [phone] Griffin Joshi MD Unavailable Paula Reza MD Primary Care Provider [phone] Roopa Almonte MD Unavailable [phone] Augustine Callaway MD Unavailable Daylin Ludwig Unavailable Daylin Ludwig Unavailable [phone] Marilin Montaño FARM PRODUCTS SHIPPER Unavailable [phone] Esha Dewitt MD Unavailable [phone] Heather Mosquera MD Unavailable [phone] Paula Reza MD Unavailable Esha Dewitt MD Unavailable [phone] Valdo EscamillaC Unavailable [phone] Nohelia Abarca PA-C Unavailable [phone] Heather Mosquera MD Unavailable [phone] Fawad York MD Unavailable [phone] Encounter Details Date Type Department Care Team (Late st Contact Info) Description 10/13/2022 MyC Medical Advice [facility] [place] [address] [facility] 202 [place] [address] Yareli Flynn CMA Social History [...] Optimize Self-Care Behaviors 90%(03/23/19 23 3:12 PM DIRECTOR ALLIANCE MARKETING) Angelita Diaz RD Note: I will check [...] documented as of this encounter Care Teams Education Program Coordinator Relationship Specialty Start Date End Date Paula Reza MD [address] [facility] 200 [place] [address] PCP - General Internal Medicine 08/05/21 Roopa Almonte MD [address] [facility] 200 [place] [address] Endocrinology, Diabetes, and Metabolism 01/19/21 Maryse Burton PA-C 5200 [place] [address] Physician Lean Manager Dermatology 04/14/21 Roopa Almonte MD [address] [facility] 200 [place] [address] Hospitalist Endocrinology, Diabetes, and Metabolism 05/30/21 Griffin Joshi MD [address] [facility] [address] [place] 544085 Cardiovascular Disease 07/25/21 Roopa Almonte MD [address] [facility] 200 [place], [place] 69[address] Assigned Endocrinology Provider 09/10/21 [place] [address] [facility] 300 [place] [address] Assigned Musculoskeletal Provider 10/15/21 04/26/23 Daylin Ludwig EP [facility] [address] [address] Cardiac Rehabilitation Therapist 05/16/23 Daylin Ludwig EP [facility] [address] [place] 135225 Cardiac Rehabilitation Therapist 06/08/22 06/09/23 Marilin Montaño, FARM PRODUCTS SHIPPER [address] [address] Assigned Heart and Vascular Provider 08/05/22 Esha Dewitt MD 420 [facility] 36 [place] [address] Gastroenterology 09/06/22 Heather Mosquera MD [address] [place] [address] Internal Medicine 09/06/22 Paula Reza MD 303 E [facility] 200 [place] [address] Assigned PCP 09/09/22 01/05/23 Esha Dewitt MD 420 [facility] 36 [place] [address] Assigned Gastroenterology Provider 09/23/22 Valdo Escamilla PA-C [address] [place], [place] [address] Assigned Neuroscience Provider 09/30/22 Nohelia Abarca PA-C [address] [place], [place] [address] Physician Lean Manager Gastroenterology 10/03/22 Heather Mosquera MD [address] 793[address] Assigned PCP 01/06/23 Fawad York MD 909 [place] [address] Assigned Musculoskeletal Provider 04/27/23 06/25/23 documented as of this encounter
--- OUTSIDE RECORDS SUMMARY | 2023-09-21 08:30 | XMS_ITS | Encounter Summary ---
Author Organization [place] Address [address] [place] [address] Care Team Providers Care Hard Candy Spinner Name Role Phone Roopa Almonte MD Unavailable [phone] Maryse Burton PA-C Unavailable Roopa Almonte MD Unavailable [phone] Griffin Joshi MD Unavailable Paula Reza MD Primary Care Provider [phone] Roopa Almonte MD Unavailable [phone] Augustine Callaway MD Unavailable Daylin Ludwig Unavailable Daylin Ludwig Unavailable [phone] Marilin Montaño END USER SUPPORT SPECIALIST Unavailable [phone] Esha Dewitt MD Unavailable [phone] Heather Mosquera MD Unavailable [phone] Paula Reza MD Unavailable Esha Dewitt MD Unavailable [phone] Valdo EscamillaC Unavailable [phone] Nohelia Abarca PA-C Unavailable [phone] Heather Mosquera MD Unavailable [phone] Fawad York MD Unavailable Encounter Details Date Type Department Care Team (Late st Contact Info) Description 10/05/2022 MyC Medical Advice [facility] [address] 4th [place] [address] Amy De La Cruz Social [...] to Optimize Self-Care Behaviors 90%(03/23/19 3:12 PM SASH FINISHER) Angelita Diaz RD Note: I will check [...] documented as of this encounter Care Teams Hard Candy Spinner Relationship Specialty Start Date End Date Paula Reza MD [address] [facility] 200 [place], [place] [address]337 PCP - General Internal Medicine 08/05/21 Roopa Almonte MD [address] [facility] 200 [place] [address] Endocrinology, Diabetes, and Metabolism 01/19/21 Maryse Burton PA-C 5200 [place] [address] Physician Knitting Inspector Dermatology 04/14/21 Roopa Almonte MD [address] [facility] 200 [place] [address] Hospitalist Endocrinology, Diabetes, and Metabolism 05/30/21 Griffin Joshi MD [address] [facility] [address] [address] Cardiovascular Disease 07/25/21 Roopa Almonte MD [address] [place] [address] 200 [place], [place] [address]990 Assigned Endocrinology Provider 09/10/21 [place] [address] [facility] 300 [place] [address] Assigned Musculoskeletal Provider 10/15/21 04/26/23 Daylin Ludwig EP [facility] [address] [address] Cardiac Rehabilitation Therapist 05/16/23 Daylin Ludwig EP [facility] [address] [address] 726235 Cardiac Rehabilitation Therapist 06/08/22 06/09/23 Marilin Montaño END USER SUPPORT SPECIALIST [address] 492645 Assigned Heart and Vascular Provider 08/05/22 Esha Dewitt MD [address] 863915 MD Gastroenterology 09/06/22 Heather Mosquera MD [address] [facility] [address] [facility] 150 [place], [place] [address]145 Internal Medicine 09/06/22 Paula Reza MD 303 E [facility] 200 [place], [place] 86[address]67 Assigned PCP 09/09/22 01/05/23 Esha Dewitt MD [address] 296285 Assigned Gastroenterology Provider 09/23/22 Valdo Escamilla PA-C [address] [facility] [address] [place], [place] [address] Assigned Neuroscience Provider 09/30/22 Nohelia Abarca PA-C [address] [place], [place] [address] Physician Knitting Inspector Gastroenterology 10/03/22 Heather Mosquera MD [address] [address] Assigned PCP 01/06/23 Fawad York MD 9 [place], [place] 237895 Assigned Musculoskeletal Provider 04/27/23 06/25/23 documented as of this encounter
--- OUTSIDE RECORDS SUMMARY | 2023-09-21 08:30 | XMS_ITS | Encounter Summary ---
Author Organization [place] Address [address] [place] [address] Care Team Providers Care Sort Supervisor Name Role Phone Roopa Almonte MD Unavailable [phone] Maryse Burton PA-C Unavailable Roopa Almonte MD Unavailable [phone] Griffin Joshi MD Unavailable Paula Reza MD Primary Care Provider [phone] Roopa Almonte MD Unavailable [phone] Augustine Callaway MD Unavailable Daylin Ludwig Unavailable Daylin Ludwig Unavailable [phone] Marilin Montaño INTERNAL AUDIT DIRECTOR Unavailable [phone] Esha Dewitt MD Unavailable [phone] Heather Mosquera MD Unavailable [phone] Paula Reza MD Unavailable Esha Dewitt MD Unavailable [phone] Valdo EscamillaC Unavailable [phone] Nohelia Abarca PA-C Unavailable [phone] Heather Mosquera MD Unavailable [phone] Fawad York MD Unavailable Reason for Visit * Reason Onset Date Comments Medication Request 10/20/2022 amiodarone (P ACERONE) 200 MG tablet [[id number]] Encounter Details Date Type Department Care Team (Late st Contact Info) Description 10/20/2022 Telephone [facility] 6400 [facility] [address] [place] [address] Griffin Joshi MD 3469 [facility] [address] [address] Medication Request (/amiodarone (PACERONE) 200 MG tablet [[id number]] /) Social History Tobacco Use Types Packs/Day [...] being requested: amiodarone (PACERONE) 200 MG tablet [[id number]] Provider who prescribed the medication: Dr Joshi Pharmacy: [id number] - [place], [place] - [address] [place] [address] [address] [...] Optimize Self-Care Behaviors 90%(03/23/19 23 3:12 PM CREATIVE RECRUITER) No Angelita Pemberton RD Note: I will [...] documented as of this encounter Care Teams Sort Supervisor Relationship Specialty Start Date End Date Paula Reza MD [address] [address] PCP - General Internal Medicine 08/05/21 Roopa Almonte MD [address] 286787 Endocrinology, Diabetes, and Metabolism 01/19/21 Maryse Burton PAAna MariaC 5200 [place] [address] Physician Furniture Lumber Production Worker Dermatology 04/14/21 Roopa Almonte MD [address] 200 [place] [address] Hospitalist Endocrinology, Diabetes, and Metabolism 05/30/21 Griffin Joshi MD [address] [facility] [address] [place] [address] Cardiovascular Disease 07/25/21 Roopa Almonte MD [address] 200 [place], [place] [address] Assigned Endocrinology Provider 09/10/21 [place] [address] [facility] 300 [place] [address] Assigned Musculoskeletal Provider 10/15/21 04/26/[address] [facility] [address] [place] [address] Cardiac Rehabilitation Therapist 05/16/[address] [facility] [address] [place] [address] Cardiac Rehabilitation Therapist 06/08/22 06/09/23 Marilin Montaño, INTERNAL AUDIT DIRECTOR [address] [address] Assigned Heart and Vascular Provider 08/05/22 Esha Dewitt MD 420 [facility] 36 [place], [place] [address] Gastroenterology 09/06/22 Heather Mosquera MD [address] [place] [address] Internal Medicine 09/06/22 Paula Reza MD [address] [place] [address] Assigned PCP 09/09/22 01/05/23 Esha Dewitt MD 420 [facility] 36 [place], [place] [address] Assigned Gastroenterology Provider 09/23/22 Valdo Escamilla PA-C [address] [facility] [address] [place], [place] [address] Assigned Neuroscience Provider 09/30/22 Nohelia Abarca PA-C 2450 [place], [place] [address] Physician Furniture Lumber Production Worker Gastroenterology 10/03/22 Heather Mosquera MD [address] [place] [address] Assigned PCP 01/06/23 Fawad York MD 909 [place], [place] 6[address] Assigned Musculoskeletal Provider 04/27/23 06/25/23 documented as of this encounter
--- OUTSIDE RECORDS SUMMARY | 2023-09-21 08:30 | XMS_ITS | Encounter Summary ---
Author Organization [place] Address [address] [place] [address] Care Team Providers Care Lpn Cma Name Role Phone Roopa Almonte MD Unavailable [phone] Maryse Burton PA-C Unavailable Roopa Almonte MD Unavailable [phone] Griffin Josih MD Unavailable Paula Reza MD Primary Care Provider [phone] Roopa Almonte MD Unavailable [phone] Augustine Callaway MD Unavailable Daylin Ludwig Unavailable Daylin Ludwig Unavailable [phone] Marilin Montaño ELEMENTARY CLASSROOM TEACHER Unavailable [phone] Esha Dewitt MD Unavailable [phone] Heather Mosquera MD Unavailable [phone] Paula Reza MD Unavailable Esha Dewitt MD Unavailable [phone] Valdo EscamillaC Unavailable [phone] Nohelia Abarca PA-C Unavailable [phone] Heather Mosquera MD Unavailable [phone] Fawad York MD Unavailable Encounter Details Date Type Department Care Team (Late st Contact Info) Description 10/05/2022 MyC Medical Advice [facility] Gastroenterology Clinic [address] 4th [place] [address] Amy De La Cruz Social [...] to Optimize Self-Care Behaviors 90%(03/23/19 3:12 PM DISBURSEMENT CLERK) Angelita Diaz RD Note: I will check [...] documented as of this encounter Care Teams Lpn Cma Relationship Specialty Start Date End Date Paula Reza MD [address] [facility] 200 [place], [place] [address]147 PCP - General Internal Medicine 08/05/21 Roopa Almonte MD [address] [facility] 200 [place] [address] Endocrinology, Diabetes, and Metabolism 01/19/21 Maryse Burton PA-C 5200 [place] [address] Physician Finisher Cold Rolling Dermatology 04/14/21 Roopa Almonte MD [address] [facility] 200 [place] [address] Hospitalist Endocrinology, Diabetes, and Metabolism 05/30/21 Griffin Joshi MD [address] [facility] [address] [id number] Cardiovascular Disease 07/25/21 Roopa Almonte MD [address] [place] [address] 200 [place], [place] [address]600 Assigned Endocrinology Provider 09/10/21 [place] [address] [facility] 300 [place] [address] Assigned Musculoskeletal Provider 10/15/21 04/26/23 Daylin Ludwig EP [facility] [address] [address] Cardiac Rehabilitation Therapist 05/16/23 Daylin Ludwig EP [facility] [address] [place] 141855 Cardiac Rehabilitation Therapist 06/08/22 06/09/23 Marilin Montaño ELEMENTARY CLASSROOM TEACHER [address] 745975 Assigned Heart and Vascular Provider 08/05/22 Esha Dewitt MD [address] 002335 MD Gastroenterology 09/06/22 Heather Mosquera MD [address] [facility] [address] [facility] 150 [place], [place] [address] Internal Medicine 09/06/22 Paula Reza MD 303 E [facility] 200 [place], [place] 6[address] Assigned PCP 09/09/22 01/05/23 Esha Dewitt MD [address] 6150[address] Assigned Gastroenterology Provider 09/23/22 Valdo Escamilla PA-C [address] [facility] [address] [place], [place] [address] Assigned Neuroscience Provider 09/30/22 Nohelia Abarca PA-C [address] [place], [place] [address] Physician Finisher Cold Rolling Gastroenterology 10/03/22 Heather Mosquera MD [address] [address] Assigned PCP 01/06/23 Fawad York MD 9 [place], [place] [address]95 Assigned Musculoskeletal Provider 04/27/23 06/25/23 documented as of this encounter
--- OUTSIDE RECORDS SUMMARY | 2023-09-21 08:31 | XMS_ITS | Encounter Summary ---
Author Organization [place] Address [address] [place] [address] Care Team Providers Care Component Prep Operator Name Role Phone Roopa Almonte MD Unavailable [phone] Maryse Burton PA-C Unavailable [phone] Roopa Almonte MD Unavailable [phone] Griffin Joshi MD Unavailable Rina Magallon RN Unavailable [phone] Paula Reza MD Primary Care Provider [phone] Roopa Almonte MD Unavailable [phone] Rosa Maria Love Unavailable [phone] Augustine Callaway MD Unavailable Porsha Michaels APRN SHEEP SHEARER Unavailable [phone] Shahida Sutton APRN SHEEP SHEARER Unavailable Un available Daylin Ludwig Unavailable [phone] Laurel Velasquez MD Unavailable [phone] Daylin Ludwig Unavailable [phone] Paula Reza MD Unavailable Porsha Michaels APRN SHEEP SHEARER Unavailable RonArelyyemi Sands MD Unavailable Shahida Sutton APRN SHEEP SHEARER Unavailable Un available Marilin Montaño SHEEP SHEARER Unavailable Esha Dewitt MD Unavailable [phone] EvelineHeather pastrana MD Unavailable Paula Reza MD Unavailable Esha Dewitt MD Unavailable [phone] Valdo Escamilla PA-C Unavailable [phone] Nohelia Abarca-C Unavailable [phone] Heather Mosquera MD Unavailable [phone] Fawad York MD Unavailable Encounter Details Date Type Department Care Team (Late st Contact Info) Description 05/02/2022 [facility] [place] Sleep [address] [address] Alexa Madden Social History Tobacco [...] Coronavirus/COVID-19? No / Unsure 05/02/2022 3:45 PM WEBMETHODS CONSULTANT documented as of this encounter Plan of [...] to Optimize Self-Care Behaviors 90%(03/23/19 3:12 PM WEBMETHODS CONSULTANT) Angelita Diaz RD Note: I will check [...] documented as of this encounter Care Teams Component Prep Operator Relationship Specialty Start Date End Date Paula Reza MD [address] [facility] 200 [place], [place] [address] PCP - General Internal Medicine 08/05/21 Roopa Almonte MD 303 E [facility] 200 [place], [place] 8[address] Endocrinology, Diabetes, and Metabolism 01/19/21 Maryse Burton, PA-C 5200 [place] [address] Physician Emergency Crew Supervisor Dermatology 04/14/21 Roopa Almonte MD [address] [facility] 200 [place] [address] Hospitalist Endocrinology, Diabetes, and Metabolism 05/30/21 Griffin Joshi MD [address] [place] [address] Cardiovascular Disease 07/25/21 Rina Magallon, RN Lead Statistical Secretary 07/29/21 07/11/22 Roopa Almonte MD [address] [facility] 200 [place], [place] [address] Assigned Endocrinology Provider 09/10/21 Rosa Maria Love, CHW Community Health Worker 10/06/21 07/11/22 [place] [address] [facility] 300 [place] [address] Assigned Musculoskeletal Provider 10/15/21 04/26/23 Porsha Michaels APRN SHEEP SHEARER [address] [address] Assigned Heart and Vascular Provider 02/11/22 05/12/22 Shahida Sutton APRN SHEEP SHEARER [address] [address] Assigned PCP 04/08/22 06/30/22 Daylin Ludwig EP [facility] [address] [address] Cardiac Rehabilitation Therapist 05/16/23 Laurel Velasquez MD [address] [address] Assigned Heart and Vascular Provider 05/13/22 06/30/22 Daylin Ludwig EP [facility] [address] [address] Cardiac Rehabilitation Therapist 06/08/22 06/09/23 Paula Reza MD [address] [place] [address] Assigned PCP 07/01/22 07/07/22 Porsha Michaels APRN SHEEP SHEARER [address] [place] [address] Assigned Heart and Vascular Provider 07/01/22 07/07/22 Laurel Velasquez MD [address] [place] [address] Assigned Heart and Vascular Provider 07/08/22 08/04/22 Shahida Sutton APRN SHEEP SHEARER Assigned PCP 07/08/22 09/08/22 Marilin Montaño, SHEEP SHEARER [address] [place] [address] Assigned Heart and Vascular Provider 08/05/22 Esha Dewitt MD [address] [place] [address] Gastroenterology 09/06/22 Heather Mosquera MD [address] [place] [address] Internal Medicine 09/06/22 Paula Reza MD [address] [place] [address] Assigned PCP 09/09/22 01/05/23 Esha Dewitt MD [address] [place] [address] Assigned Gastroenterology Provider 09/23/22 Valdo Escamilla PA-C 6363 [facility] 103 [place], [place] [address] Assigned Neuroscience Provider 09/30/22 Nohelia Abarca PA-C 2450 [place], [place] [address] Physician Emergency Crew Supervisor Gastroenterology 10/03/22 Heather Mosquera MD 65[address] [facility] 150 [place], [place] [address] Assigned PCP 01/06/23 Fawad York MD 909 [place], [place] [address] Assigned Musculoskeletal Provider 04/27/23 06/25/23 documented as of this encounter
--- OUTSIDE RECORDS SUMMARY | 2023-09-21 08:31 | XMS_ITS | Encounter Summary ---
Author Organization [place] Address [address] [place] [address] Care Team Providers Care Computer Systems Administrator Name Role Phone Roopa Almonte MD Unavailable [phone] Maryse Burton PA-C Unavailable [phone] Roopa Almonte MD Unavailable [phone] Griffin Joshi MD Unavailable Rina Magallon RN Unavailable [phone] Paula Reza MD Primary Care Provider [phone] Roopa Almonte MD Unavailable [phone] Rosa Maria Love Unavailable [phone] Augustine Callaway MD Unavailable Shahida Sutton APRN VISUAL DEVELOPER Unavailable Un available Porsha Michaels APRN VISUAL DEVELOPER Unavailable [phone] Paula Reza MD Unavailable Shahida Sutton APRN VISUAL DEVELOPER Unavailable Un available Daylin Ludwig Unavailable [phone] Laurel Velasquez MD Unavailable [phone] Daylin Ludwig Unavailable [phone] Paula Reza MD Unavailable Porsha Michaels APRN VISUAL DEVELOPER Unavailable [phone] Laurel Velasquez MD Unavailable [phone] HermanIndu huertaprincess Cummings DIGITAL MARKETING PROJECT MANAGER VISUAL DEVELOPER Unavailable Un available Marilin Montaño VISUAL DEVELOPER Unavailable [phone] Esha Dewitt MD Unavailable [phone] Heather Mosquera MD Unavailable [phone] Paula Reza MD Unavailable Esha Dewitt MD Unavailable [phone] Valdo Escamilla PA-C Unavailable [phone] Nohelia Abarca PA-C Unavailable [phone] Heather Mosquera MD Unavailable [phone] Fawad York MD Unavailable [phone] Encounter Details Date Type Department Care Team (Late st Contact Info) Description 03/13/2022 MyC Medical Advice [facility] [address] [address] Fawad York MD [address] [place] [address] Social History Tobacco Use Types Packs/Day [...] Coronavirus/COVID-19? No / Unsure 02/21/2022 12:25 PM MANAGER DATA documented as of this encounter Plan of [...] to Optimize Self-Care Behaviors 90%(03/23/19 3:12 PM MANAGER DATA) Angelita Diaz RD Note: I will check [...] documented as of this encounter Care Teams Computer Systems Administrator Relationship Specialty Start Date End Date Paula Reza MD [address] [address] PCP - General Internal Medicine 08/05/21 Roopa Almonte MD [address] [facility] 200 [place], [place] [address] Endocrinology, Diabetes, and Metabolism 01/19/21 Maryse Burton, PAAna MariaC 5200 [place] [address] Physician New Autos Delivery Driver Dermatology 04/14/21 Roopa Almonte MD [address] [facility] 200 [place], [place] [address] Hospitalist Endocrinology, Diabetes, and Metabolism 05/30/21 Griffin Joshi MD [address] [facility] [address] [address] Cardiovascular Disease 07/25/21 Rina Magallon, RN Lead Lawn Maintenance Worker 07/29/21 07/11/22 Roopa Almonte MD [address] [facility] 200 [place], [place] [address] Assigned Endocrinology Provider 09/10/21 Rosa Maria Love W Community Health Worker 10/06/21 07/11/22 [place] [address] [facility] 300 [place] [address] Assigned Musculoskeletal Provider 10/15/21 04/26/23 Shahida Sutton APRN VISUAL DEVELOPER Assigned PCP 12/24/21 03/24/22 Porsha Michaels APRN VISUAL DEVELOPER [address] [address] Assigned Heart and Vascular Provider 02/11/22 05/12/22 Paula Reza MD [address] [place] [address] Assigned PCP 03/25/22 04/07/22 Shahida Sutton APRN VISUAL DEVELOPER [address] 200 [place] [address] Assigned PCP 04/08/22 06/30/22 Daylin Ludwig EP [facility] [address] [address] Cardiac Rehabilitation Therapist 05/16/23 Laurel Velasquez MD [address] [address]15005 Assigned Heart and Vascular Provider 05/13/22 06/30/22 Daylin Ludwig EP [facility] [address] [id number] Cardiac Rehabilitation Therapist 06/08/22 06/09/23 Paula Reza MD [address] [facility] 200 [place], [place] [address] Assigned PCP 07/01/22 07/07/22 Porsha Michaels APRN VISUAL DEVELOPER [address] [address] Assigned Heart and Vascular Provider 07/01/22 07/07/22 Laurel Velasquez MD [address] [place] [address] Assigned Heart and Vascular Provider 07/08/22 08/04/22 Shahida Sutton APRN VISUAL DEVELOPER Assigned PCP 07/08/22 09/08/22 Marilin Montaño, VISUAL DEVELOPER [address] [place] [address] Assigned Heart and Vascular Provider 08/05/22 Esha Dewitt MD [address] [place] [address] 36 [place], [place] [address] Gastroenterology 09/06/22 Heather Mosquera MD [address] [place] [id number] Internal Medicine 09/06/22 Paula Reza MD [address] 200 [place] [address] Assigned PCP 09/09/22 01/05/23 Esha Dewitt MD 420 [facility] 36 [place], [place] [address] Assigned Gastroenterology Provider 09/23/22 Valdo Escamilla PA-C [address] [facility] [address] [place], [place] [address] Assigned Neuroscience Provider 09/30/22 Nohelia Abarca PA-C 2450 [place], [place] [address] Physician New Autos Delivery Driver Gastroenterology 10/03/22 Heather Mosquera MD [address] [place] [id number] Assigned PCP 01/06/23 Fawad York MD 9[address] [place], [place] [address] Assigned Musculoskeletal Provider 04/27/23 06/25/23 documented as of this encounter
--- OUTSIDE RECORDS SUMMARY | 2023-09-21 08:31 | XMS_ITS | Encounter Summary ---
Author Organization [place] Address [address] [place] [address] Care Team Providers Care Blow Mold Operator Name Role Phone Roopa Almonte MD Unavailable [phone] Maryse Burton PA-C Unavailable Roopa Almonte MD Unavailable [phone] Griffin Joshi MD Unavailable Paula Reza MD Primary Care Provider [phone] Roopa Almonte MD Unavailable [phone] Augustine Callaway MD Unavailable Daylin Ludwig Unavailable Daylin Ludwig Unavailable [phone] Marilin Montaño DICER MACHINE OPERATOR Unavailable [phone] Esha Dewitt MD Unavailable [phone] Heather Mosquera MD Unavailable [phone] Paula Reza MD Unavailable Esha Dewitt MD Unavailable [phone] Valdo EscamillaC Unavailable [phone] Nohelia Abarca PA-C Unavailable [phone] Heather Mosquera MD Unavailable [phone] Fawad York MD Unavailable Encounter Details Date Type Department Care Team (Late st Contact Info) Description 10/04/2022 MyC Medical Advice [facility] [address] 4th [place] [address] Jennifer Mast MA Social History [...] to Optimize Self-Care Behaviors 90%(03/23/19 3:12 PM FILLING CARRIER) Angelita Diaz RD Note: I will check [...] documented as of this encounter Care Teams Blow Mold Operator Relationship Specialty Start Date End Date Paula Reza MD [address] [address] PCP - General Internal Medicine 08/05/21 Roopa Almonte MD [address] [facility] 200 [place] [address] Endocrinology, Diabetes, and Metabolism 01/19/21 Maryse Burton PAAna MariaC [address] [place], [place] 2[address] Physician Miller Helper Distillery Dermatology 04/14/21 Roopa Almonte MD [address] [facility] 200 [place] [address] Hospitalist Endocrinology, Diabetes, and Metabolism 05/30/21 Griffin Joshi MD [address] [facility] [address] [address] Cardiovascular Disease 07/25/21 Roopa Almonte MD [address] [facility] 200 [place], [place] [address] Assigned Endocrinology Provider 09/10/[address] [place] [address] [facility] 300 [place] [address] Assigned Musculoskeletal Provider 10/15/21 04/26/23 Daylin Ludwig EP [facility] [address] [address] Cardiac Rehabilitation Therapist 05/16/23 Daylin Ludwig EP [facility] [address] [address] Cardiac Rehabilitation Therapist 06/08/22 06/09/23 Marilin Montaño DICER MACHINE OPERATOR [address] [address] Assigned Heart and Vascular Provider 08/05/22 Esha Dewitt MD 420 [facility] 36 [place], [place] [address] MD Gastroenterology 09/06/22 Heather Mosquera MD [address] [place] [address] Internal Medicine 09/06/22 Paula Reza MD [address] [facility] 200 [place], [place] [address] Assigned PCP 09/09/22 01/05/23 Esha Dewitt MD 420 [facility] 36 [place], [place] [address] Assigned Gastroenterology Provider 09/23/22 Valdo Escamilla PA-C [address] [place], [place] [address] Assigned Neuroscience Provider 09/30/22 Nohelia Abarca PA-C [address] [place], [place] [address] Physician Miller Helper Distillery Gastroenterology 10/03/22 Heather Mosquera MD [address] [address] Assigned PCP 01/06/23 Fawad York MD 9 [place], [place] [address] Assigned Musculoskeletal Provider 04/27/23 06/25/23 documented as of this encounter
--- OUTSIDE RECORDS SUMMARY | 2023-09-21 08:31 | XMS_ITS | Encounter Summary ---
Author Organization [place] Address [address] [place] [address] Care Team Providers Care Wire Brush Operator Name Role Phone Roopa Almonte MD Unavailable [phone] Maryse Burton PA-C Unavailable Roopa Almonte MD Unavailable [phone] Griffin Jsohi MD Unavailable Paula Reza MD Primary Care Provider [phone] Roopa Almonte MD Unavailable [phone] Augustine Callaway MD Unavailable Daylin Ludwig Unavailable Daylin Ludwig Unavailable [phone] Marilin Montaño SALES PROMOTION DIRECTOR Unavailable [phone] Esha Dewitt MD Unavailable [phone] Heather Mosquera MD Unavailable [phone] Paula Reza MD Unavailable Esha Dewitt MD Unavailable [phone] Valdo EscamillaC Unavailable [phone] Nohelia Abarca PA-C Unavailable [phone] Heather Mosquera MD Unavailable Fawad York MD Unavailable Encounter Details Date Type Department Care Team (Late st Contact Info) Description 09/13/2022 MyC Medical Advice [facility] [place] [address] [facility] [address] 4th [place] [address] Esha Dewitt MD 420 [facility] 36 [place] [address] Social History Tobacco Use Types [...] to Optimize Self-Care Behaviors 90%(03/23/19 3:12 PM VRT MECHANIC) Angelita Diaz RD Note: I will check [...] documented as of this encounter Care Teams Wire Brush Operator Relationship Specialty Start Date End Date Paula Reza MD [address] [facility] 200 [place] [address] PCP - General Internal Medicine 08/05/21 Roopa Almonte MD [address] [facility] 200 [place] [address] Endocrinology, Diabetes, and Metabolism 01/19/21 Maryse Burotn, PAAna MariaC 5200 [place] [address] Physician In Tube Conversion Technician Dermatology 04/14/21 Roopa Almonte MD [address] [facility] 200 [place] [address] Hospitalist Endocrinology, Diabetes, and Metabolism 05/30/21 Griffin Joshi MD [address]405 [facility] [address] [place] [address] Cardiovascular Disease 07/25/21 Roopa Almonte MD [address] [facility] 200 [place], [place] [address] Assigned Endocrinology Provider 09/10/21 [place] [address] [facility] 300 [place] [address] Assigned Musculoskeletal Provider 10/15/21 04/26/23 Daylin Ludwig EP [facility] [address] [place] [address] Cardiac Rehabilitation Therapist 05/16/23 Daylin Ludwig EP [facility] [address] [place] [address] Cardiac Rehabilitation Therapist 06/08/22 06/09/23 Marilin Montaño, SALES PROMOTION DIRECTOR [address] [place] [address] Assigned Heart and Vascular Provider 08/05/22 Esha Dewitt MD 420 [facility] 36 [place], [place] [address] Gastroenterology 09/06/22 Heather Mosquera MD [address] [place], [place] [address] Internal Medicine 09/06/22 Paula Reza MD [address] [facility] 200 [place], [place] [address] Assigned PCP 09/09/22 01/05/23 Esha Dewitt MD 420 [facility] 36 [place], [place] [address] Assigned Gastroenterology Provider 09/23/22 Valdo Escamilla PA-C [address] [place] [address] Assigned Neuroscience Provider 09/30/22 Nohelia Abarca PA-C 2450 [place] [address] Physician In Tube Conversion Technician Gastroenterology 10/03/22 Heather Mosquera MD 6545 [facility] 150 [place] [address] Assigned PCP 01/06/23 Fawad York MD 909 [place] [address] Assigned Musculoskeletal Provider 04/27/23 06/25/23 documented as of this encounter
--- OUTSIDE RECORDS SUMMARY | 2023-09-21 08:31 | XMS_ITS | Encounter Summary ---
Author Organization [place] Address [address] [place] [address] Care Team Providers Care Tire Rebuilder Name Role Phone Roopa Almonte MD Unavailable [phone] Maryse Burton PA-C Unavailable [phone] Roopa Almonte MD Unavailable [phone] Griffin Joshi MD Unavailable Rina Magallon RN Unavailable [phone] Paula Reza MD Primary Care Provider [phone] Roopa Almonte MD Unavailable [phone] Rosa Maria Love Unavailable [phone] Augustine Callaway MD Unavailable Porsha Michaels APRN QUALITY IMPROVEMENT CONSULTANT Unavailable [phone] Shahida Sutton APRN QUALITY IMPROVEMENT CONSULTANT Unavailable Un available Daylin Ludwig Unavailable [phone] Laurel Velasquez MD Unavailable [phone] Daylin Ludwig Unavailable [phone] Paula Reza MD Unavailable Porsha Michaels APRN QUALITY IMPROVEMENT CONSULTANT Unavailable Laurel Velasquez MD Unavailable [phone] Shahida Sutton APRN QUALITY IMPROVEMENT CONSULTANT Unavailable Un available Marilin Montaño QUALITY IMPROVEMENT CONSULTANT Unavailable Esha Dewitt MD Unavailable [phone] Heather Mosquera MD Unavailable Paula Reza MD Unavailable Esha Dewitt MD Unavailable [phone] Valdo Escamilla PAAna MariaC Unavailable Nohelia AbarcaC Unavailable [phone] Heather Mosquera MD Unavailable [phone] Fawad York MD Unavailable Encounter Details Date Type Department Care Team (Late st Contact Info) Description 05/02/[address] [facility] Heart [facility] [address] [address] Laurel Velasquez MD [address] [address] Social History Tobacco Use [...] Coronavirus/COVID-19? No / Unsure 05/02/2022 3:45 PM CREATIVE/ART DIRECTOR documented as of this encounter Miscellaneous Notes * Telephone Encounter - Abdulaziz Mendez - 05/02/2022 1:59 PM CST Spoke to patient and patient has decided to keep his appointment for today 05/02/22 at 4:[address] Velasquez. He does not want to cancel his appointment. TIVE/ART DIRECTOR * Telephone Encounter - Crystal Dietrich - 05/02/2022 1:35 PM CST [facility] Phone Message May a detailed message be left on voicemail: yes Reason for Call: Other: Pt called in wanting to reschedule TAVR appointment again. Please call patient back to further coordinate at [phone] Action Taken: Other: cardiology Travel Screening: Not Applicable Thank you! [facility] TIVE/ART DIRECTOR documented in this encounter Plan of [...] to Optimize Self-Care Behaviors 90%(03/23/19 3:12 PM CREATIVE/ART DIRECTOR) Angelita Diaz RD Note: I will check [...] documented as of this encounter Care Teams Tire Rebuilder Relationship Specialty Start Date End Date Paula Reza MD [address] [facility] 200 [place] [address] PCP - General Internal Medicine 6/3/22 Roopa Almonte MD [address] [facility] 200 [place] [address] Endocrinology, Diabetes, and Metabolism 01/19/21 Maryse Burton PA-C 5200 [place] [address] Physician Medical Scientist Dermatology 04/14/21 Roopa Almonte MD [address] [facility] 200 [place] [address] Hospitalist Endocrinology, Diabetes, and Metabolism 05/30/21 Griffin Joshi MD [address] [facility] [address] [place] [address] Cardiovascular Disease 07/25/21 Rina Magallon, RN Lead Cellular Tower Climber 07/29/21 07/11/22 Roopa Almonte MD [address] [place] [address] 200 [place], [place] [address] Assigned Endocrinology Provider 09/10/21 Rosa Maria Love CHW Community Health Worker 10/06/21 07/11/22 [place] [address] [facility] 300 [place] [address] Assigned Musculoskeletal Provider 10/15/21 04/26/23 Porsha Michaels APRN QUALITY IMPROVEMENT CONSULTANT [address] [place] [address] Assigned Heart and Vascular Provider 02/11/22 05/12/22 Shahida Sutton APRN QUALITY IMPROVEMENT CONSULTANT [address] [place] [address] Assigned PCP 04/08/22 06/30/22 Daylin Ludwig, [facility] [address] [place] [address] Cardiac Rehabilitation Therapist 05/16/23 Laurel Velasquez MD [address] [place] [address] Assigned Heart and Vascular Provider 05/13/22 06/30/22 Daylin Ludwig, [facility] [address] [place] [address] Cardiac Rehabilitation Therapist 06/08/22 06/09/23 Paula Reza MD [address] [facility] 200 [place], [place] [address] Assigned PCP 07/01/22 07/07/22 Porsha Michaels APRN QUALITY IMPROVEMENT CONSULTANT [address] [place] [address] Assigned Heart and Vascular Provider 07/01/22 07/07/22 Laurel Velasquez MD [address] [place], [place] [address] Assigned Heart and Vascular Provider 07/08/22 08/04/22 Shahida Sutton APRN QUALITY IMPROVEMENT CONSULTANT Assigned PCP 07/08/22 09/08/22 Marilin Montaño, QUALITY IMPROVEMENT CONSULTANT [address] [place] [address] Assigned Heart and Vascular Provider 08/05/22 Esha Dewitt MD [address] [address] MD Gastroenterology 09/06/22 Heather Mosquera MD [address] [facility] [address] [facility] 150 [place] [address] Internal Medicine 09/06/22 Paula Reza MD [address] [facility] 200 [place] [address] Assigned PCP 09/09/22 01/05/23 Esha Dewitt MD [address] [place] [address] Assigned Gastroenterology Provider 09/23/22 Valdo Escamilla PA-C 6363 [facility] S [facility] 103 [place] [address] Assigned Neuroscience Provider 09/30/22 Nohelia Abarca PA-C 2450 [place] [address] Physician Medical Scientist Gastroenterology 10/03/22 Heather Mosquera MD [address] [facility] [address] [facility] 150 [place], [place] [address] Assigned PCP 01/06/23 Fawad York MD [address] [place] [address] Assigned Musculoskeletal Provider 04/27/23 06/25/23 documented as of this encounter
--- OUTSIDE RECORDS SUMMARY | 2023-09-21 08:31 | XMS_ITS | Encounter Summary ---
Author Organization [place] Address [address] [place] [address] Care Team Providers Care Mobility Scooter Repairer Name Role Phone Roopa Almonte MD Unavailable [phone] Maryse Burton PA-C Unavailable Roopa Almonte MD Unavailable [phone] Griffin Joshi MD Unavailable Paula Reza MD Primary Care Provider [phone] Roopa Almonte MD Unavailable [phone] Augustine Callaway MD Unavailable Daylin Ludwig EP Unavailable Daylin Ludwig EP Unavailable [phone] Shahida Sutton APRN SPLITTER OPERATOR Unavailable Un available Marilin Montaño SPLITTER OPERATOR Unavailable [phone] Esha Dewitt MD Unavailable [phone] Heather Mosquera MD Unavailable [phone] Paula Reza MD Unavailable Esha Dewitt MD Unavailable Valdo Escamilla PA-C Unavailable Nohelia Abarca-C Unavailable [phone] Heather Mosquera MD Unavailable [phone] Fawad York MD Unavailable [phone] Encounter Details Date Type Department Care Team (Late st Contact Info) Description 08/23/2022 MyC Medical Advice [facility] [address] [facility] [address] [place] [address] Carmen Prince, EXAMINING CHAIR ASSEMBLER Social History Tobacco Use Types Packs/Day Years [...] to Optimize Self-Care Behaviors 90%(03/23/19 3:12 PM ROBOTICS SOFTWARE ENGINEER) Angelita Diaz RD Note: I will check [...] documented as of this encounter Care Teams Mobility Scooter Repairer Relationship Specialty Start Date End Date Paula Reza MD [address] [facility] 200 [place] [address] PCP - General Internal Medicine 08/05/21 Roopa Almonte MD [address] [address] Endocrinology, Diabetes, and Metabolism 01/19/21 Maryse Burton, PA-C 5200 [place] [address] Physician Refrigerator Cabinetmaker Dermatology 04/14/21 Roopa Almonte MD [address] [address] Hospitalist Endocrinology, Diabetes, and Metabolism 05/30/21 Griffin Joshi MD [address] [facility] [address] [address] Cardiovascular Disease 07/25/21 Roopa Almonte MD [address] 200 [place], [place] [address] Assigned Endocrinology Provider 09/10/21 [place] [address] [facility] 300 [place] [address] Assigned Musculoskeletal Provider 10/15/21 04/26/23 Daylin Ludwig EP [facility] [address] [address]24[address] Cardiac Rehabilitation Therapist 05/16/23 Daylin Ludwig EP [facility] [address] [place] [address] Cardiac Rehabilitation Therapist 06/08/22 06/09/23 Shahida Sutton, DUANE SPLITTER OPERATOR Assigned PCP 07/08/22 09/08/22 Marilin Montaño, SPLITTER OPERATOR [address] [place], [place] [address] Assigned Heart and Vascular Provider 08/05/22 Esha Deiwtt MD 420 [facility] 36 [place], [place] [address] MD Gastroenterology 09/06/22 Heather Mosquera MD [address] [place] [address] Internal Medicine 09/06/22 Paula Reza MD 303 E [facility] 200 [place], [place] [address] Assigned PCP 09/09/22 01/05/23 Esha Dewitt MD 420 [facility] 36 [place], [place] [address] Assigned Gastroenterology Provider 09/23/22 Valdo Escamilla PA-C [address] [place] [address] Assigned Neuroscience Provider 09/30/22 Nohelia Abarca PA-C 2450 [place] [address] Physician Refrigerator Cabinetmaker Gastroenterology 10/03/22 Heahter Mosquera MD 6545 [facility] 150 [place], [place] [address] Assigned PCP 01/06/23 Fawad York MD 909 [place], [place] [address] Assigned Musculoskeletal Provider 04/27/23 06/25/23 documented as of this encounter
--- OUTSIDE RECORDS SUMMARY | 2023-09-21 08:31 | XMS_ITS | Encounter Summary ---
Author Organization [facility] Address [address] [place] [address] Care Team Providers Care Office Services Specialist Name Role Phone Roopa Almonte MD Unavailable [phone] Maryse Burton PA-C Unavailable [phone] Roopa Almonte MD Unavailable [phone] Griffin Joshi MD Unavailable Rina Magallon RN Unavailable [phone] Paula Reza MD Primary Care Provider [phone] Roopa Almonte MD Unavailable [phone] Rosa Maria Love Unavailable [phone] Augustine Callaway MD Unavailable Porsha Michaels APRN TRANSMISSION DESIGN ENGINEER Unavailable [phone] Paula Reza MD Unavailable Shahida Sutton APRN TRANSMISSION DESIGN ENGINEER Unavailable Un available Daylin Ludwig Unavailable [phone] Laurel Velasquez MD Unavailable [phone] Daylin Ludwig Unavailable [phone] Paula Reza MD Unavailable Brando, Kim DUANE TRANSMISSION DESIGN ENGINEER Unavailable Laurel Velasquez MD Unavailable [phone] Shahida Sutton MOTOR PATROL OPERATOR TRANSMISSION DESIGN ENGINEER Unavailable Un available GerryyamilMarilin TRANSMISSION DESIGN ENGINEER Unavailable Esha Dewitt MD Unavailable [phone] Heather Mosquera MD Unavailable Paula Reza MD Unavailable Esha Dewitt MD Unavailable [phone] Valdo Escamilla PA-C Unavailable Nohelia Abarca-C Unavailable [phone] Heather Mosquera MD Unavailable [phone] Fawad York MD Unavailable [phone] Reason for Visit * Reason Onset Date Comments Appointment 03/29/2022 Reschedule TAVR Encounter Details Date Type Department Care Team (Late st Contact Info) Description 03/29/[address] [facility] [address] [address] Brady Lion MD Appointment (Reschedule [...] Not Applicable Thank you! [facility] STARCH OPERATOR documented in this encounter Plan of [...] Optimize Self-Care Behaviors 90%(03/23/19 23 3:12 PM DRY STARCH OPERATOR) Angelita Diaz RD Note: I will [...] as of this encounter Care Teams Office Services Specialist Relationship Specialty Start Date End Date Paula Reza MD [address] [facility] [address] [address] PCP - General Internal Medicine 08/05/21 Roopa Almonte MD [address] [address] Endocrinology, Diabetes, and Metabolism 01/19/21 Maryse Burton PAAna MariaC [address] [place] [address] Physician Cast Iron Dipper Dermatology 04/14/21 Roopa Almonte MD [address] [facility] [address] [place] [address] Hospitalist Endocrinology, Diabetes, and Metabolism 05/30/21 Griffin Joshi MD [address] [facility] [address] [place] [address] Cardiovascular Disease 07/25/21 Rina Magallon, RN Lead Desktop Support Associate 07/29/21 07/11/22 Roopa Almonte MD [address] [facility] 200 [place], [place] [address] Assigned Endocrinology Provider 09/10/21 Rosa Maria Love CHW Community Health Worker 10/06/21 07/11/22 [place] [address] [facility] 300 [place] [address] Assigned Musculoskeletal Provider 10/15/21 04/26/23 Porsha Michaels APRN TRANSMISSION DESIGN ENGINEER [address] [place] [address] Assigned Heart and Vascular Provider 02/11/22 05/12/22 Paula Reza MD [address] [facility] 200 [place] [address] Assigned PCP 03/25/22 04/07/22 Shahida Sutton APRN TRANSMISSION DESIGN ENGINEER [address] [facility] 200 [place] [address] Assigned PCP 04/08/22 06/30/[address] [facility] [address] [address] Cardiac Rehabilitation Therapist 05/16/23 Laurel Velasquez MD [address] [address] Assigned Heart and Vascular Provider 05/13/22 06/30/[address] [facility] [address] [address] Cardiac Rehabilitation Therapist 06/08/22 06/09/23 Paula Reza MD [address] [facility] 200 [place], [place] [address] Assigned PCP 07/01/22 07/07/22 Porsha Michaels APRN TRANSMISSION DESIGN ENGINEER [address] [address] Assigned Heart and Vascular Provider 07/01/22 07/07/22 Laurel Velasquez MD [address] [id number] Assigned Heart and Vascular Provider 07/08/22 08/04/22 Shahida Sutton APRN TRANSMISSION DESIGN ENGINEER Assigned PCP 07/08/22 09/08/22 Marilin Montaño, TRANSMISSION DESIGN ENGINEER [address] [address] Assigned Heart and Vascular Provider 08/05/22 Esha Dewitt MD [address] [place] [address] 36 [place], [place] [address] Gastroenterology 09/06/22 Heather Mosquera MD [address] [place], [place] [address] Internal Medicine 09/06/22 Paula Reza MD [address] [facility] [address] [place], [place] [address] Assigned PCP 09/09/22 01/05/23 Esha Dewitt MD 420 [facility] 36 [place], [place] [address] Assigned Gastroenterology Provider 09/23/22 Valdo Escamilla PA-C [address] [facility] [address] [place], [place] [address] Assigned Neuroscience Provider 09/30/22 Nohelia Abarca PA-C [address] [place], [place] [address] Physician Cast Iron Dipper Gastroenterology 10/03/22 Heather Mosquera MD [address] [facility] [address] [place], [place] [address] Assigned PCP 01/06/23 Fawad York MD [address] [place] [address] Assigned Musculoskeletal Provider 04/27/23 06/25/23 documented as of this encounter
--- OUTSIDE RECORDS SUMMARY | 2023-09-21 08:31 | XMS_ITS | Encounter Summary ---
Author Organization [place] Address [address] [place] [address] Care Team Providers Care Clother In Name Role Phone Roopa Almonte MD Unavailable [phone] Maryse Burton PA-C Unavailable [phone] Roopa Almonte MD Unavailable [phone] Griffin Joshi MD Unavailable Rina Magallon RN Unavailable [phone] Paula Reza MD Primary Care Provider [phone] Roopa Almonte MD Unavailable [phone] Rosa Maria Love Unavailable [phone] Augustine Callaway MD Unavailable Porsha Michaels APRN IT SALES CONSULTANT Unavailable [phone] Paula Reza MD Unavailable Shahida Sutton APRN IT SALES CONSULTANT Unavailable Un available Daylin Ludwig Unavailable [phone] Laurel Velasquez MD Unavailable [phone] Daylin Ludwig Unavailable [phone] Paula Reza MD Unavailable Porsha Michaels APRN IT SALES CONSULTANT Unavailable Laurel Velasquez MD Unavailable Shahida Sutton PLANT PATHOLOGY TEACHER IT SALES CONSULTANT Unavailable Un available Marilin Montaño IT SALES CONSULTANT Unavailable Esha Dewitt MD Unavailable [phone] Heather Mosquera MD Unavailable [phone] Paula Reza MD Unavailable Esha Dewitt MD Unavailable [phone] Valdo Escamilla PA-C Unavailable [phone] Nohelia Abarca PA-C Unavailable [phone] Heather Mosquera MD Unavailable Fawad York MD Unavailable Reason for Visit * Reason Onset Date Comments information for employers 03/28/2022 Inform ation needed for reasonable accommodations request Encounter Details Date Type Department Care Team (Late st Contact Info) Description 03/28/2022 Telephone [facility] Heart [facility] [address]405 [facility] [address] [place] [address] Porsha Michaels APRN IT SALES CONSULTANT [address] [facility] [place] [id number] information for employers (Information needed for reasonable [...] Not Applicable Thank you! Specialty Access Center TING ENGINEERING TECHNICIAN documented in this encounter Plan of [...] Optimize Self-Care Behaviors 90%(03/23/19 23 3:12 PM LIGHTING ENGINEERING TECHNICIAN) Angelita Diaz RD Note: I will check [...] documented as of this encounter Care Teams Clother In Relationship Specialty Start Date End Date Paula Reza MD [address] [address] PCP - General Internal Medicine 08/05/21 Roopa Almonte MD [address] [facility] 200 [place] [address] Endocrinology, Diabetes, and Metabolism 01/19/21 Maryse Burton, PA-C [address] [place] [address] Physician Distributor Of Directories Dermatology 04/14/21 Roopa Almonte MD [address] [facility] 200 [place] [address] Hospitalist Endocrinology, Diabetes, and Metabolism 05/30/21 Griffin Joshi MD [address] [facility] [address] [place] [address] Cardiovascular Disease 07/25/21 Rina Magallon, RN Lead Resource Engineer 07/29/21 07/11/22 Roopa Almonte MD [address] [facility] 200 [place], [place] [address] Assigned Endocrinology Provider 09/10/21 Rosa Maria Love CHW Community Health Worker 10/06/21 07/11/22 [place] [address] [facility] 300 [place] [address] Assigned Musculoskeletal Provider 10/15/21 04/26/23 Porsha Michaels APRN IT SALES CONSULTANT [address] [place] [address] Assigned Heart and Vascular Provider 02/11/22 05/12/22 Paula Reza MD [address] [address] Assigned PCP 03/25/22 04/07/22 Shahida Sutton APRN IT SALES CONSULTANT [address] [address] Assigned PCP 04/08/22 06/30/22 Daylin Ludwig, MIKI [facility] [address] [address] Cardiac Rehabilitation Therapist 05/16/23 Laurel Velasquez MD [address] [address] Assigned Heart and Vascular Provider 05/13/22 06/30/22 Daylin Ludwig, MIKI [facility] [address] [address] Cardiac Rehabilitation Therapist 06/08/22 06/09/23 Paula Reza MD [address] [place] [address] Assigned PCP 07/01/22 07/07/22 Porsha Michaels APRN IT SALES CONSULTANT [address] [address] Assigned Heart and Vascular Provider 07/01/22 07/07/22 Laurel Velasquez MD [address] [address] Assigned Heart and Vascular Provider 07/08/22 08/04/22 Shahida Sutton APRN IT SALES CONSULTANT Assigned PCP 07/08/22 09/08/22 Marilin Montaño, IT SALES CONSULTANT [address] [address] Assigned Heart and Vascular Provider 08/05/22 Esha Dewitt MD 420 [facility] 36 [place] [address] Gastroenterology 09/06/22 Heather Mosquera MD [address] [place], [place] [address] Internal Medicine 09/06/22 Paula Reza MD [address] [facility] 200 [place], [place] [address] Assigned PCP 09/09/22 01/05/23 Esha Dewitt MD 420 [facility] 36 [place], [place] [address] Assigned Gastroenterology Provider 09/23/22 Valdo Escamilla PA-C 6363 [facility] [address] [place], [place] [address] Assigned Neuroscience Provider 09/30/22 Nohelia Abarca PA-C [address] [place], [place] [address] Physician Distributor Of Directories Gastroenterology 10/03/22 Heather Mosquera MD [address] [place], [place] [address] Assigned PCP 01/06/23 Fawad York MD [address] [place], [place] [address] Assigned Musculoskeletal Provider 04/27/23 06/25/23 documented as of this encounter
--- OUTSIDE RECORDS SUMMARY | 2023-09-21 08:31 | XMS_ITS | Encounter Summary ---
Author Organization [facility] Address [address] [place] [address] Care Team Providers Care Education General Manager Name Role Phone Roopa Almonte MD Unavailable [phone] Maryse Burton PA-C Unavailable [phone] Roopa Almonte MD Unavailable [phone] Griffin Joshi MD Unavailable Rina Magallon RN Unavailable [phone] Paula Reza MD Primary Care Provider [phone] Roopa Almonte MD Unavailable [phone] Rosa Maria Love Unavailable [phone] Augustine Callaway MD Unavailable Shahida Sutton APRN LOCOMOTIVE BOILERMAKER Unavailable Un available Porsha Michaels APRN LOCOMOTIVE BOILERMAKER Unavailable [phone] Paula Reza MD Unavailable Shahida Sutton APRN LOCOMOTIVE BOILERMAKER Unavailable Un available Daylin Ludwig Unavailable [phone] Laurel Velasquez MD Unavailable [phone] Daylin Ludwig Unavailable [phone] Paula Reza MD Unavailable Porsha Michaels APRN LOCOMOTIVE BOILERMAKER Unavailable [phone] Laurel Velasquez MD Unavailable [phone] Shahida Sutton FLAGGER LOCOMOTIVE BOILERMAKER Unavailable Un available Marilin Montaño LOCOMOTIVE BOILERMAKER Unavailable [phone] Esha Dewitt MD Unavailable [phone] Heather Mosquera MD Unavailable [phone] Paula Reza MD Unavailable Esha Dewitt MD Unavailable [phone] Valdo Escamilla PA-C Unavailable [phone] Nohelia Abarca PA-C Unavailable [phone] Heather Mosquera MD Unavailable [phone] Fawad York MD Unavailable [phone] Reason for Visit * Reason Onset Date Comments Refill Request 03/01/2022 zolpidem ER (AMB IEN CR) 12.5 MG CR tablet Encounter Details Date Type Department Care Team (Late st Contact Info) Description 03/01/[address] [place] [address] Paula Reza MD [address] [facility] 200 [place] [address] Refill Request (zolpidem ER (AMBIEN [...] No / Unsure 02/21/2022 12:25 PM MANAGER CLINICAL SERVICES documented as of this encounter Miscellaneous Notes * Telephone Encounter - Shayla Callahan RN - 03/02/2022 1:14 PM CST Routing refill request to provider for review/approval because: Drug not on the [facility] refill protocol Shayla Callahan RN, BSN GER CLINICAL SERVICES documented in this encounter Plan of Treatment [...] Self-Care Behaviors 90%(03/23/19 23 3:12 PM MANAGER CLINICAL SERVICES) Angelita Diaz RD Note: I will check [...] as of this encounter Care Teams Education General Manager Relationship Specialty Start Date End Date Paula Reza MD [address] [place] [address] PCP - General Internal Medicine 08/05/21 Roopa Almonte MD [address] [facility] 200 [place] [address] Endocrinology, Diabetes, and Metabolism 01/19/21 Maryse Burton PA-C 5200 [place] [address] Physician Environmental Epidemiologist Dermatology 04/14/21 Roopa Almonte MD [address] [facility] 200 [place], [place] [address] Hospitalist Endocrinology, Diabetes, and Metabolism 05/30/21 Griffin Joshi MD [address] [facility] [address] [address] Cardiovascular Disease 07/25/21 Rina Magallon, RN Lead Tag Writer 07/29/21 07/11/22 Roopa Almonte MD [address] [place] [address] 200 [place], [place] [address] Assigned Endocrinology Provider 09/10/21 Rosa Maria Love CHW Community Health Worker 10/06/21 07/11/22 [place] [address] [facility] 300 [place], [place] [address] Assigned Musculoskeletal Provider 10/15/21 04/26/23 Shahida Sutton APRN LOCOMOTIVE BOILERMAKER Assigned PCP 12/24/21 03/24/22 Porsha Michaels APRN LOCOMOTIVE BOILERMAKER [address] [address] Assigned Heart and Vascular Provider 02/11/22 05/12/22 Paula Reza MD [address] [place] [address] Assigned PCP 03/25/22 04/07/22 Shahida Sutton APRN LOCOMOTIVE BOILERMAKER [address] [place] [address] Assigned PCP 04/08/22 06/30/22 Daylin Ludwig, MIKI [facility] [address] [place] [address] Cardiac Rehabilitation Therapist 05/16/23 Laurel Velasquez MD [address] [place] [address] Assigned Heart and Vascular Provider 05/13/22 06/30/22 Daylin Ludwig, MIKI [facility] [address] [place] [address] Cardiac Rehabilitation Therapist 06/08/22 06/09/23 Paula Reza MD [address] [place] [address] Assigned PCP 07/01/22 07/07/22 Porsha Michaels APRN LOCOMOTIVE BOILERMAKER [address] [place] [address] Assigned Heart and Vascular Provider 07/01/22 07/07/22 Laurel Velasquez MD [address] [place] [address] Assigned Heart and Vascular Provider 07/08/22 08/04/22 Shahida Sutton APRN LOCOMOTIVE BOILERMAKER Assigned PCP 07/08/22 09/08/22 Marilin Montaño, PAULA [address] [place] [address] Assigned Heart and Vascular Provider 08/05/22 Esha Dewitt MD 420 [facility] 36 [place] [address] MD Gastroenterology 09/06/22 Heather Mosquera MD [address] [place] [address] Internal Medicine 09/06/22 Paula Reza MD [address] [facility] 200 [place] [address] Assigned PCP 09/09/22 01/05/23 Esha Dewitt MD 420 [facility] 36 [place] [address] Assigned Gastroenterology Provider 09/23/22 Valdo Escamilla PA-C [facility] [facility] [address] [address] [place] [address] Assigned Neuroscience Provider 09/30/22 Nohelia Abarca PA-C [address] [facility] [place] [place] [address] Physician Environmental Epidemiologist Gastroenterology 10/03/22 Heather Mosquera MD [address] [place] [address] Assigned PCP 01/06/23 Fawad York MD [address] [place] [address] Assigned Musculoskeletal Provider 04/27/23 06/25/23 documented as of this encounter
--- OUTSIDE RECORDS SUMMARY | 2023-09-21 08:31 | XMS_ITS | Encounter Summary ---
Author Organization [facility] Address [address] [place] [address] Care Team Providers Care Legal Aide Name Role Phone Roopa Almonte MD Unavailable [phone] Maryse Burton PA-C Unavailable [phone] Roopa Almonte MD Unavailable [phone] Griffin Joshi MD Unavailable Rina Magallon RN Unavailable [phone] Paula Reza MD Primary Care Provider [phone] Roopa Almonte MD Unavailable [phone] Rosa Maria Love Unavailable [phone] Augustine Callaway MD Unavailable Porsha Michaels APRN CHARGE MANAGER Unavailable [phone] Shahida Sutton APRN CHARGE MANAGER Unavailable Un available Daylin Ludwig Unavailable [phone] Laurel Velasquez MD Unavailable [phone] Daylin Ludwig Unavailable [phone] Paula Reza MD Unavailable Porsha Michaels APRN CHARGE MANAGER Unavailable RonArelyyemi Sands MD Unavailable [phone] Shahida Sutton APRN CHARGE MANAGER Unavailable Un available Marilin Montaño CHARGE MANAGER Unavailable Esha Dewitt MD Unavailable [phone] EvelineHeather pastrana MD Unavailable Paula Reza MD Unavailable Esha Dewitt MD Unavailable [phone] Valdo Escamilla PA-C Unavailable Nohelia Abarca-C Unavailable [phone] Heather Mosquera MD Unavailable Fawad York MD Unavailable [phone] Encounter Details Date Type Department Care Team (Late st Contact Info) Description 04/18/2022 [facility] Medical Advice [address] [place] [address] Sonia Neal, RN Social History [...] Coronavirus/COVID-19? No / Unsure 04/12/2022 3:43 PM TEXTILE SUPERVISOR documented as of this encounter Plan of [...] to Optimize Self-Care Behaviors 90%(03/23/19 3:12 PM TEXTILE SUPERVISOR) Angelita Diaz RD Note: I will check [...] documented as of this encounter Care Teams Legal Aide Relationship Specialty Start Date End Date Paula Reza MD [address] [place], [place] [address] PCP - General Internal Medicine 08/05/21 Roopa Almonte MD [address] [facility] 200 [place] [address] Endocrinology, Diabetes, and Metabolism 01/19/21 Maryse Burton, PAAna MariaC [address]200 [place] [address] Physician Nanoelectronics Engineer Dermatology 04/14/21 Roopa Almonte MD [address] [facility] 200 [place] [address] Hospitalist Endocrinology, Diabetes, and Metabolism 05/30/21 Griffin Joshi MD [address] [facility] [address] [place] [address] Cardiovascular Disease 07/25/21 Rina Magallon, RN Lead Medical Aide 07/29/21 07/11/22 Roopa Almonte MD [address] [facility] 200 [place] [address] Assigned Endocrinology Provider 09/10/21 Kate [place] Maria, CHW Community Health Worker 10/06/21 07/11/22 [place] [address] [facility] 300 [place] [address] Assigned Musculoskeletal Provider 10/15/21 04/26/23 Porsha Michaels APRN CHARGE MANAGER [address] [address] Assigned Heart and Vascular Provider 02/11/22 05/12/22 Shahida Sutton APRN CHARGE MANAGER [address] [address] Assigned PCP 04/08/22 06/30/22 Daylin Ludwig EP [facility] [address] [address] Cardiac Rehabilitation Therapist 05/16/23 Laurel Velasquez MD [address] [address] Assigned Heart and Vascular Provider 05/13/22 06/30/22 Daylin Ludwig EP [facility] [address] [address] Cardiac Rehabilitation Therapist 06/08/22 06/09/23 Paula Reza MD [address] [place] [address] Assigned PCP 07/01/22 07/07/22 Porsha Michaels APRN CHARGE MANAGER [address] [place] [address] Assigned Heart and Vascular Provider 07/01/22 07/07/22 Laurel Velasquez MD [address] [place] [address] Assigned Heart and Vascular Provider 07/08/22 08/04/22 Shahida Sutton APRN CHARGE MANAGER Assigned PCP 07/08/22 09/08/22 Marilin Montaño CHARGE MANAGER [address] [place] [address] Assigned Heart and Vascular Provider 08/05/22 Esha Dewitt MD [address] [place] [address] Gastroenterology 09/06/22 Heather Mosquera MD [address] [place] [address] Internal Medicine 09/06/22 Paula Reza MD [address] [place], [place] [address] Assigned PCP 09/09/22 01/05/23 Esha Dewitt MD [address] [place] [address] Assigned Gastroenterology Provider 09/23/22 Valdo Escamilla PA-C 6363 [facility] 103 [place] [address] Assigned Neuroscience Provider 09/30/22 Nohelia Abarca PA-C [address]50 [place], [place] [address] Physician Nanoelectronics Engineer Gastroenterology 10/03/22 Heather Mosquera MD 6545 [facility] 150 [place], [place] [address] Assigned PCP 01/06/23 Fawad York MD 909 [place], [place] [address] Assigned Musculoskeletal Provider 04/27/23 06/25/23 documented as of this encounter
--- OUTSIDE RECORDS SUMMARY | 2023-09-21 08:31 | XMS_ITS | Encounter Summary ---
Author Organization [facility] Address [address] [place] [address] Care Team Providers Care Small Stock Facer Name Role Phone Roopa Almonte MD Unavailable [phone] Maryse Burton PA-C Unavailable [phone] Roopa Almonte MD Unavailable [phone] Griffin Joshi MD Unavailable Paula Reza MD Primary Care Provider [phone] Roopa Almonte MD Unavailable [phone] Augustine Callaway MD Unavailable Daylin Ludwig Unavailable Daylin Ludwig Unavailable [phone] Marilin Montaño CEMENT MASON APPRENTICE Unavailable [phone] Esha Dewitt MD Unavailable [phone] Heather Mosquera MD Unavailable [phone] Paula Reza MD Unavailable Esha Dewitt MD Unavailable [phone] Valdo EscamillaC Unavailable [phone] Nohelia Abarca PA-C Unavailable Heather Mosquera MD Unavailable [phone] Fawad York MD Unavailable Encounter Details Date Type Department Care Team (Late st Contact Info) Description 10/05/2022 MyC Medical Advice [facility] [address] 4th [place] [address] Amy De La Cruz Social [...] to Optimize Self-Care Behaviors 90%(03/23/19 3:12 PM AUTOMOTIVE AIRCONDITIONING MECHANIC) Angelita Diza RD Note: I will check my blood [...] documented as of this encounter Care Teams Small Stock Facer Relationship Specialty Start Date End Date Paula Reza MD [address] [facility] 200 [place], [place] [address] PCP - General Internal Medicine 08/05/21 Roopa Almonte MD [address] [facility] 200 [place] [address] Endocrinology, Diabetes, and Metabolism 01/19/21 Maryse Burton PA-C 5200 [place] [address] Physician Floor Layer Tile Dermatology 04/14/21 Roopa Almonte MD [address] [facility] [facility] 200 [place] [address] Hospitalist Endocrinology, Diabetes, and Metabolism 05/30/21 Griffin Joshi MD [address] [facility] [address] [place] [address] Cardiovascular Disease 07/25/21 Roopa Almonte MD [address] [place] [address] 200 [place], [place] [address] Assigned Endocrinology Provider 09/10/21 [place] [address] [facility] 300 [place] [address] Assigned Musculoskeletal Provider 10/15/21 04/26/23 Daylin Ludwig EP [facility] [address] [place] [address] Cardiac Rehabilitation Therapist 05/16/23 Daylin Ludwig EP [facility] [address] [place] [address] Cardiac Rehabilitation Therapist 06/08/22 06/09/23 Marilin Montaño CEMENT MASON APPRENTICE [address] [place] 507845 Assigned Heart and Vascular Provider 08/05/22 Esha Dewitt MD [address] 7825[address] MD Gastroenterology 09/06/22 Heather Mosquera MD [address] [facility] [facility] [address] [address] [facility] 150 [place], [place] [address] Internal Medicine 09/06/22 Paula Reza MD [address] [facility] 200 [place], [place] [address] Assigned PCP 09/09/22 01/05/23 Esha Dewitt MD [address] 597885 Assigned Gastroenterology Provider 09/23/22 Valdo Escamilla PA-C [address] [facility] [address] [place], [place] [address] Assigned Neuroscience Provider 09/30/22 Nohelia Abarca PA-C [address] [place], [place] [address] Physician Floor Layer Tile Gastroenterology 10/03/22 Heather Mosquera MD [address] [address] Assigned PCP 01/06/23 Fawad York MD 9 [place], [place] [address] Assigned Musculoskeletal Provider 04/27/23 06/25/23 documented as of this encounter
--- OUTSIDE RECORDS SUMMARY | 2023-09-21 08:31 | XMS_ITS | Encounter Summary ---
Author Organization [place] Address [address] [place] [address] Care Team Providers Care Auto Rental Supervisor Name Role Phone Roopa Almonte MD Unavailable [phone] Maryse Burton PA-C Unavailable [phone] Roopa Almonte MD Unavailable [phone] Griffin Joshi MD Unavailable Paula Reza MD Primary Care Provider [phone] Roopa Almonte MD Unavailable [phone] Augustine Callaway MD Unavailable Daylin Ludwig EP Unavailable Daylin Ludwig EP Unavailable [phone] Shahida Sutton APRN TECHNICAL SME Unavailable Un available Marilin Montaño TECHNICAL SME Unavailable [phone] Esha Dewitt MD Unavailable [phone] Heather Mosquera MD Unavailable [phone] Paula Reza MD Unavailable Esha Dewitt MD Unavailable [phone] Valdo Escamilla PA-C Unavailable [phone] Nohelia Abarca PA-C Unavailable [phone] Heather Mosquera MD Unavailable Fawad York MD Unavailable Reason for Visit * Reason Onset Date Comments Appointment 08/25/2022 Reschedule Surge ry Encounter Details Date Type Department Care Team (Late st Contact Info) Description 08/25/2022 Telephone [facility] [place] [address] [facility] [address] [place] [address] Kim Romo MD [address] [facility] [address] [place] [address] Appointment (Reschedule Surgery) [...] Specialty Access Center * Telephone Encounter - Cyrstal Dietrich - 08/25/2022 9:53 AM CDT M [...] Optimize Self-Care Behaviors 90%(03/23/19 23 3:12 PM PIPING ENGINEER) Angelita Diaz RD Note: I will [...] documented as of this encounter Care Teams Auto Rental Supervisor Relationship Specialty Start Date End Date Paula Reza MD [address] [address] PCP - General Internal Medicine 08/05/21 Roopa Almonte MD [address] [address] Endocrinology, Diabetes, and Metabolism 01/19/21 Maryse Burton, PA-C 5200 [place] [address] Physician Mobile Home Laborer Dermatology 04/14/21 Roopa Almonte MD [address] [facility] 200 [place] [address] Hospitalist Endocrinology, Diabetes, and Metabolism 05/30/21 Griffin Joshi MD [address] [facility] [address] [place] [address] Cardiovascular Disease 07/25/21 Roopa Almonte MD [address] [facility] 200 [place] [address] Assigned Endocrinology Provider 09/10/21 [place] [address] [facility] 300 [place] [address] Assigned Musculoskeletal Provider 10/15/21 04/26/23 Daylin Ludwig EP [facility] [address] [place] [address] Cardiac Rehabilitation Therapist 05/16/23 Daylin Ludwig EP [facility] [address] [place] [address] Cardiac Rehabilitation Therapist 06/08/22 06/09/23 Shahida Sutton APRN TECHNICAL SME Assigned PCP 07/08/22 09/08/22 Marilin Montaño CNP [address] [place] [address] [address] Assigned Heart and Vascular Provider 08/05/22 Esha Dewitt MD 420 [facility] 36 [place] [address] MD Gastroenterology 09/06/22 Heather Mosquera MD [address] [place], [place] [address] Internal Medicine 09/06/22 Paula Reza MD [address] [facility] 200 [place], [place] [address] Assigned PCP 09/09/22 01/05/23 Esha Dewitt MD 420 [facility] 36 [place], [place] [address] Assigned Gastroenterology Provider 09/23/22 Valdo Escamilla PA-C 6363 [facility] [address] [address] [place], [place] [address] Assigned Neuroscience Provider 09/30/22 Nohelia Abarca PA-C 2450 [facility] [place], [place] [address] Physician Mobile Home Laborer Gastroenterology 10/03/22 Heather Mosquera MD [address] [place], [place] [address] Assigned PCP 01/06/23 Fawad York MD [address] [place], [place] [address] Assigned Musculoskeletal Provider 04/27/23 06/25/23 documented as of this encounter
--- OUTSIDE RECORDS SUMMARY | 2023-09-21 08:31 | XMS_ITS | Encounter Summary ---
Author Organization [facility] Address [address] [place] [address] Care Team Providers Care Director Of Music Therapy Name Role Phone Roopa Almonte MD Unavailable [phone] Maryse Burton PA-C Unavailable Roopa Almonte MD Unavailable [phone] Griffin Joshi MD Unavailable Paula Reza MD Primary Care Provider [phone] Roopa Almonte MD Unavailable [phone] Augustine Callaway MD Unavailable Daylin Ludwig Unavailable Daylin Ludwig Unavailable [phone] Marilin Montaño GLASS MOULD CLEANER Unavailable [phone] Esha Dewitt MD Unavailable [phone] Heather Mosquera MD Unavailable [phone] Paula Reza MD Unavailable Esha Dewitt MD Unavailable [phone] Valdo EscamillaC Unavailable [phone] Nohelia Abarca PA-C Unavailable [phone] Heather Mosquera MD Unavailable [phone] Fawad York MD Unavailable Encounter Details Date Type Department Care Team (Late st Contact Info) Description 10/03/2022 MyC Medical Advice [facility] [address] 4th [place] [address] Paz Zavala, RN Social History [...] to Optimize Self-Care Behaviors 90%(03/23/19 3:12 PM 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 DRIVER) Angelita Diaz RD Note: I will check [...] as of this encounter Care Teams Director Of Music Therapy Relationship Specialty Start Date End Date Paula Reza MD [address] [facility] 200 [place] [address] PCP - General Internal Medicine 08/05/21 Roopa Almonte MD [address] [facility] 200 [place] [address] Endocrinology, Diabetes, and Metabolism 01/19/21 Maryse Burton PA-C [address] [place], [place] [address] Physician Pharmacist'S Aide Dermatology 04/14/21 Roopa Almonte MD [address] [facility] 200 [place] [address] Hospitalist Endocrinology, Diabetes, and Metabolism 05/30/21 Griffin Joshi MD [address] [facility] [address] [place] [address] Cardiovascular Disease 07/25/21 Roopa Almonte MD [address] [facility] 200 [place], [place] [address] Assigned Endocrinology Provider 09/10/21 [place] [address] [facility] 300 [place] [address] Assigned Musculoskeletal Provider 10/15/21 04/26/23 Daylin Ludwig EP [facility] [address] [address] Cardiac Rehabilitation Therapist 05/16/23 Daylin Ludwig EP [facility] [address] [place] [address] Cardiac Rehabilitation Therapist 06/08/22 06/09/23 Marilin Montaño, GLASS MOULD CLEANER [address] [address] Assigned Heart and Vascular Provider 08/05/22 Esha Dewitt MD 420 [facility] 36 [place], [place] [address] MD Gastroenterology 09/06/22 Heather Mosquera MD [address] [facility] [address] [place] [address] Internal Medicine 09/06/22 Paula Reza MD [address] [facility] 200 [place] [address] Assigned PCP 09/09/22 01/05/23 Esha Dewitt MD 420 [facility] 36 [place] [address] Assigned Gastroenterology Provider 09/23/22 Valdo Escamilla PA-C [address] [place], [place] [address] Assigned Neuroscience Provider 09/30/22 Nohelia Abarca PA-C [address] [place] [address] Physician Pharmacist'S Aide Gastroenterology 10/03/22 Heather Mosquera MD [address] [address] Assigned PCP 01/06/23 Fawad York MD 9 [place], [place] [address] Assigned Musculoskeletal Provider 04/27/23 06/25/23 documented as of this encounter
--- OUTSIDE RECORDS SUMMARY | 2023-09-21 08:32 | XMS_ITS | Encounter Summary ---
Author Organization [facility] Address [address] [place] [address] Care Team Providers Care Pre K Special Education Teacher Name Role Phone HermanShahida APRN MASTER SHEET CLERK Primary Care Provi ford Unavailable Shahida Sutton APRN MASTER SHEET CLERK Unavailable Un available Carolynn Ramon RN Unavailable [phone] Anabela Barakat APRN MASTER SHEET CLERK Unavailable Roopa Almonte MD Unavailable [phone] Augustine Callaway MD Unavailable Maryse Burton PA-C Unavailable [phone] Roopa Almonte MD Unavailable [phone] Griffin Joshi MD Unavailable Rina Magallon RN Unavailable [phone] Paula Reza MD Primary Care Provider [phone] Griffin Joshi MD Unavailable Roopa Almonte MD Unavailable [phone] Basilio Morillo DO Unavailable [phone] Lydia Bernstein PA-C Unavailable Kate Rosa Maria CHW Unavailable Augustine Callaway MD Unavailable Paula Reza MD Unavailable Keerthi Miner APRN MASTER SHEET CLERK Unavailable Herman, Shahida Cummings APRN MASTER SHEET CLERK Unavailable Un available Porsha Michaels APRN MASTER SHEET CLERK Unavailable [phone] Paula Reza MD Unavailable Herman, Shahida Cummings APRN MASTER SHEET CLERK Unavailable Un available Daylin Ludwig EP Unavailable [phone] Laurel Velasquez MD Unavailable FieteDaylin hernandez EP Unavailable [phone] Paula Reza MD Unavailable Porsha Michaels APRN MASTER SHEET CLERK Unavailable [phone] Laurel Velasquez MD Unavailable [phone] Herman, Shahida Cummings APRN MASTER SHEET CLERK Unavailable Un available Marilin Montaño MASTER SHEET CLERK Unavailable Esha Dewitt MD Unavailable [phone] Heather Mosquera MD Unavailable [phone] Paula Reza MD Unavailable Esha Dewitt MD Unavailable [phone] Valdo Escamilla PA-C Unavailable [phone] Nohelia Abarca PA-C Unavailable Heather Mosquera MD Unavailable [phone] Fawad York MD Unavailable [phone] Reason for Visit * Reason Onset Date Comments Anticoagulation 07/15/2021 INR overdue Encounter Details Date Type Department Care Team (Latest Contact Info) Description 07/15/2021 Documentation Only [facility] [address] [place] [phone] Aneta Thurman RN Anticoagulation (INR overdue) Social [...] documented as of this encounter Care Teams Pre K Special Education Teacher Relationship Specialty Start Date End Date Shahida Sutton APRN MASTER SHEET CLERK PCP - General Nurse Practitioner 08/17/14 08/04/21 Paula Reza MD [address] [facility] 200 [place] [address] PCP - General Internal Medicine 08/05/21 Shahida Sutton APRN MASTER SHEET CLERK Assigned PCP 07/12/14 09/30/21 Carolynn Ramon RN Personal Advocate & Liaison (PAL) 12/17/18 08/07/21 Anabela Barakat APRN MASTER SHEET CLERK 1700 [place] [address] Assigned Heart and Vascular Provider 08/15/20 08/05/21 Roopa Almonte MD [address] [facility] 200 [place] [address] Endocrinology, Diabetes, and Metabolism 01/19/21 [place] [address] [facility] 300 [place] [address] Assigned Musculoskeletal Provider 02/06/21 09/16/21 Maryse Burton PA-C 5200 [place] [address] Physician Warehouse Stocker Dermatology 04/14/21 Roopa Almonte MD [address] [facility] 200 [place], [place] [address] Hospitalist Endocrinology, Diabetes, and Metabolism 05/30/21 Griffin Joshi MD 6405 [facility] [address] [place] [address] Cardiovascular Disease 07/25/21 Rina Magallon, RN Lead Denture Packer 07/29/21 07/11/22 Griffin Joshi MD 6405 [facility] [address] [place] [address] Assigned Heart and Vascular Provider 08/06/21 10/07/21 Roopa Almonte MD [address] [facility] 200 [place], [place] [address] Assigned Endocrinology Provider 09/10/21 [place] [address] [facility] [address] [place] [address] Assigned Musculoskeletal Provider 09/17/21 10/14/21 Lydia Bernstein PA-C [address] [place] [address] Assigned PCP 10/01/21 10/21/21 Rosa Maria Love CHW Community Health Worker 10/06/21 07/11/22 [place] [address] [place] [address] [place] [address] Assigned Musculoskeletal Provider 10/15/21 04/26/23 Paula Reza MD [address] [facility] 200 [place], [place] [address] Assigned PCP 10/22/21 12/23/21 Keerthi Miner APRN MASTER SHEET CLERK [address] [place] [address] Assigned Heart and Vascular Provider 10/08/21 02/10/22 Shahida Sutton APRN MASTER SHEET CLERK Assigned PCP 12/24/21 03/24/22 Porsha Michaels APRN MASTER SHEET CLERK [address] [place] [address] [address] Assigned Heart and Vascular Provider 02/11/22 05/12/22 Paula Reza MD [address] [place] [address] Assigned PCP 03/25/22 04/07/22 Shahida Sutton APRN MASTER SHEET CLERK [address] [place] [address] Assigned PCP 04/08/22 06/30/22 Daylin Ludwig, [facility] [address] [place] [address] Cardiac Rehabilitation Therapist 05/16/23 Laurel Velasquez MD [address] [place] [address] Assigned Heart and Vascular Provider 05/13/22 06/30/22 Daylin Ludwig, [facility] [address] [place] [address] Cardiac Rehabilitation Therapist 06/08/22 06/09/23 Paula Reza MD [address] [place] [address] Assigned PCP 07/01/22 07/07/22 Porsha Michaels APRN MASTER SHEET CLERK [address] [place] [address] Assigned Heart and Vascular Provider 07/01/22 07/07/22 Laurel Velasquez MD [address] [place] [address] Assigned Heart and Vascular Provider 07/08/22 08/04/22 Shahida Sutton APRN MASTER SHEET CLERK Assigned PCP 07/08/22 09/08/22 Marilin Montaño, PAULA [address] [place] [address] Assigned Heart and Vascular Provider 08/05/22 Esha Dewitt MD 420 [facility] 36 [place] [address] MD Gastroenterology 09/06/22 Heather Mosquera MD [address] [facility] [address] [place], [place] [address] Internal Medicine 09/06/22 Paula Reza MD [address] E [facility] 200 [place] [address] Assigned PCP 09/09/22 01/05/23 Esha Dewitt MD 420 [facility] 36 [place] [address] Assigned Gastroenterology Provider 09/23/22 Valdo Escamilla PA-C 6[address] [facility] [address] [place] [address] Assigned Neuroscience Provider 09/30/22 Nohelia Abarca PA-C 2450 [place], [place] [address] Physician Warehouse Stocker Gastroenterology 10/03/22 Heather Mosquera MD [address] [place], [place] [address] Assigned PCP 01/06/23 Fawad York MD 9 [place] [address] Assigned Musculoskeletal Provider 04/27/23 06/25/23 documented as of this encounter
--- OUTSIDE RECORDS SUMMARY | 2023-09-21 08:32 | XMS_ITS | Encounter Summary ---
Author Organization [place] Address [address] [place] [address] Care Team Providers Care Ibm Websphere Commerce Consultant Name Role Phone HermanShahida APRN PROMOTION PRODUCER Primary Care Provi ford Unavailable Shahida Sutton APRN PROMOTION PRODUCER Unavailable Un available Carolynn Ramon RN Unavailable [phone] Anabela Barakat APRN PROMOTION PRODUCER Unavailable Roopa Almonte MD Unavailable [phone] Augustine Callaway MD Unavailable Maryse Burton PA-C Unavailable [phone] Roopa Almonte MD Unavailable [phone] Griffin Joshi MD Unavailable Rina Magallon RN Unavailable [phone] Paula Reza MD Primary Care Provider [phone] Griffin Joshi MD Unavailable Roopa Almonte MD Unavailable [phone] Basilio Morillo DO Unavailable [phone] Lydia Bernstein PA-C Unavailable Kate Rosa Maria CHW Unavailable Augustine Callaway MD Unavailable Paula Reza MD Unavailable Keerthi Miner APRN PROMOTION PRODUCER Unavailable Herman, Shahida Cummings APRN PROMOTION PRODUCER Unavailable Un available Porsha Michaels APRN PROMOTION PRODUCER Unavailable [phone] Paula Reza MD Unavailable Herman, Shahida Cummings APRN PROMOTION PRODUCER Unavailable Un available Daylin Ludwig EP Unavailable [phone] Laurel Velasquez MD Unavailable [phone] Fietedavid, Daylin Juárez EP Unavailable [phone] Paula Reza MD Unavailable Porsha Michaels APRN PROMOTION PRODUCER Unavailable [phone] Laurel Velasquez MD Unavailable [phone] Herman, Shahida Cummings APRN PROMOTION PRODUCER Unavailable Un available Marilin Montaño PROMOTION PRODUCER Unavailable [phone] Esha Dewitt MD Unavailable [phone] Heather Mosquera MD Unavailable [phone] Paula Reza MD Unavailable Esha Dewitt MD Unavailable [phone] Valdo Escamilla PA-C Unavailable + [phone] Nohelia Abarca PA-C Unavailable [phone] Heather Mosquera MD Unavailable [phone] Fawad [place] MD Unavailable [phone] Reason for Visit * Reason Onset Date Comments Patient Request 07/01/2021 Work letter - RN ULISES Encounter Details Date Type Department Care Team (Late st Contact Info) Description 07/01/2021 [facility] [place] [phone] Shahida Sutton APRN PROMOTION PRODUCER Patient Request (Work letter - RN ULISES [...] Ramon, Registered Nurse, ULISES (Patient Advocate Liason) [facility] [phone] * Telephone Encounter - Marquita Singh CMA [...] documented as of this encounter Care Teams Ibm Websphere Commerce Consultant Relationship Specialty Start Date End Date Shahida Sutton APRN PROMOTION PRODUCER PCP - General Nurse Practitioner 08/17/14 08/04/21 Paula Reza MD [address] [place], [place] [address] PCP - General Internal Medicine 08/05/21 Shahida Sutton APRN PROMOTION PRODUCER Assigned PCP 07/12/14 09/30/21 Carolynn Ramon RN Personal Advocate & Liaison (PAL) 12/17/18 08/07/21 Anabela Barakat APRN PROMOTION PRODUCER [address] [place] [address] Assigned Heart and Vascular Provider 08/15/20 08/05/21 Roopa Almonte MD [address] [facility] 200 [place] [address] Endocrinology, Diabetes, and Metabolism 01/19/21 [place] [address] [address] [place] [address] Assigned Musculoskeletal Provider 02/06/21 09/16/21 Maryse Burton, PAAna MariaC [address] [place] [address] Physician Still Operator Gin Dermatology 04/14/21 Roopa Almonte MD [address] [facility] 200 [place] [address] Hospitalist Endocrinology, Diabetes, and Metabolism 05/30/21 Griffin Joshi MD [address] [place] [address] Cardiovascular Disease 07/25/21 Rina Magallon, RN Lead Project Officer 07/29/21 07/11/22 Griffin Joshi MD [address] [place] [address] Assigned Heart and Vascular Provider 08/06/21 10/07/21 Roopa Almonte MD [address] [facility] 200 [place], [place] [address] Assigned Endocrinology Provider 09/10/21 [place] [address] [facility] [place] [address] Assigned Musculoskeletal Provider 09/17/21 10/14/21 Lydia Bernstein PA-C [address] [place], [place] [address] Assigned PCP 10/01/21 10/21/21 Rosa Maria Love CHW Community Health Worker 10/06/21 07/11/22 [place] [address] [place] [facility] [address] [place] [address] Assigned Musculoskeletal Provider 10/15/21 04/26/23 Paula Reza MD [address] [place] [address] Assigned PCP 10/22/21 12/23/21 Keerthi Miner APRN PROMOTION PRODUCER [address] [place] [address] Assigned Heart and Vascular Provider 10/08/21 02/10/22 Shahida Sutton APRN PROMOTION PRODUCER Assigned PCP 12/24/21 03/24/22 Porsha Michaels APRN PROMOTION PRODUCER [address] [place] [address] Assigned Heart and Vascular Provider 02/11/22 05/12/22 Paula Reza MD [address] [place] [address] Assigned PCP 03/25/22 04/07/22 Shahida Sutton APRN PROMOTION PRODUCER [address] [place] [address] Assigned PCP 04/08/22 06/30/22 Daylin Ludwig EP [facility] [address] [place] [address] Cardiac Rehabilitation Therapist 05/16/23 Laurel Velasquez MD [address] [place] [address] Assigned Heart and Vascular Provider 05/13/22 06/30/22 Daylin Ludwig EP [facility] [address] [place] [address] Cardiac Rehabilitation Therapist 06/08/22 06/09/23 Paula Reza MD [address] [facility] 200 [place], [place] [address] Assigned PCP 07/01/22 07/07/22 Porsha Michaels APRN PROMOTION PRODUCER [address] [place] [address] Assigned Heart and Vascular Provider 07/01/22 07/07/22 Laurel Velasquez MD [address] [place] [address] Assigned Heart and Vascular Provider 07/08/22 08/04/22 Shahida Sutton APRN PROMOTION PRODUCER Assigned PCP 07/08/22 09/08/22 Marilin Montaño, PROMOTION PRODUCER [address] [place] [address] Assigned Heart and Vascular Provider 08/05/22 Esha Dewitt MD [address] [place] [address] 36 [place], [place] [address] Gastroenterology 09/06/22 Heather Mosquera MD [address] [place] [address] Internal Medicine 09/06/22 Paula Reza MD [address] [place] [address] Assigned PCP 09/09/22 01/05/23 Esha Dewitt MD [address] [facility] 36 [place] [address] Assigned Gastroenterology Provider 09/23/22 Valdo Escamilla PA-C [address] [facility] [address] [place], [place] [address] Assigned Neuroscience Provider 09/30/22 Nohelia Abarca PA-C [address] [facility] [place] [address] Physician Still Operator Gin Gastroenterology 10/03/22 Heather Mosquera MD [address] [facility] [address] [facility] 150 [place] [address] Assigned PCP 01/06/23 Fawad [place] MD 9[address] [place] [address] Assigned Musculoskeletal Provider 04/27/23 06/25/23 documented as of this encounter
--- OUTSIDE RECORDS SUMMARY | 2023-09-21 08:32 | XMS_ITS | Encounter Summary ---
Author Organization [place] Address [address] [place] [address] Care Team Providers Care Color Tester Name Role Phone Roopa Almonte MD Unavailable [phone] Maryse Burton PA-C Unavailable [phone] Roopa Almonte MD Unavailable [phone] Griffin Joshi MD Unavailable Rina Magallon RN Unavailable [phone] Paula Reza MD Primary Care Provider [phone] Roopa Almonte MD Unavailable [phone] Rosa Maria Love Unavailable [phone] Augustine Callaway MD Unavailable Shahida Sutton APRN MANAGER CLINICAL SERVICES Unavailable Un available Porsha Michaels APRN MANAGER CLINICAL SERVICES Unavailable [phone] Paula Reza MD Unavailable Shahida Sutton APRN MANAGER CLINICAL SERVICES Unavailable Un available Daylin Ludwig Unavailable [phone] Laurel Velasquez MD Unavailable [phone] Daylin Ludwig Unavailable [phone] Paula Reza MD Unavailable Porsha Michaels APRN MANAGER CLINICAL SERVICES Unavailable [phone] Laurel Velasquez MD Unavailable [phone] HermanIndu huertaprincess Cummings NEPHROLOGY NURSE MANAGER CLINICAL SERVICES Unavailable Un available Marilin Montaño MANAGER CLINICAL SERVICES Unavailable [phone] Esha Dewitt MD Unavailable [phone] Heather Mosquera MD Unavailable [phone] Paula Reza MD Unavailable Esha Dewitt MD Unavailable [phone] Valdo Escamilla PA-C Unavailable [phone] Nohelia Abarca-C Unavailable [phone] Heather Mosquera MD Unavailable [phone] Fawad [place] MD Unavailable [phone] Encounter Details Date Type Department Care Team (Late st Contact Info) Description 02/27/2022 MyC Medical Advice [facility] [address] [facility] [address] [place] [address] Carmen Prince, EXPANSION JOINT BUILDER Social History Tobacco Use Types Packs/Day Years [...] Coronavirus/COVID-19? No / Unsure 02/21/2022 12:25 PM VISITOR USE ASSISTANT documented as of this encounter Plan [...] to Optimize Self-Care Behaviors 90%(03/23/19 3:12 PM VISITOR USE ASSISTANT) Angelita Diaz RD Note: I will [...] documented as of this encounter Care Teams Color Tester Relationship Specialty Start Date End Date Paula Reza MD [address] [facility] 200 [place] [address] PCP - General Internal Medicine 08/05/21 Roopa Almonte MD [address] [facility] 200 [place] [address] Endocrinology, Diabetes, and Metabolism 01/19/21 Maryse Burton PA-C [address] [place] [address] Physician Gas Leak Inspector Helper Dermatology 04/14/21 Roopa Almonte MD [address] [facility] 200 [place] [address] Hospitalist Endocrinology, Diabetes, and Metabolism 05/30/21 Griffin Joshi MD [address] [facility] [address] [place], [place] [address] Cardiovascular Disease 07/25/21 Rina Magallon, RN Lead Director Loss Prevention 07/29/21 07/11/22 Roopa Almonte MD [address] [facility] [address] [place] [address] Assigned Endocrinology Provider 09/10/21 Rosa Maria Love CHW Community Health Worker 10/06/21 07/11/22 [place] [address] [facility] 300 [place] [address] Assigned Musculoskeletal Provider 10/15/21 04/26/23 Shahida Sutton APRN MANAGER CLINICAL SERVICES Assigned PCP 12/24/21 03/24/22 Porsha Michaels APRN MANAGER CLINICAL SERVICES [address] [place] [address] Assigned Heart and Vascular Provider 02/11/22 05/12/22 Paula Reza MD [address] [place] [address] Assigned PCP 03/25/22 04/07/22 Shahida Sutton APRN MANAGER CLINICAL SERVICES [address] [place] [address] Assigned PCP 04/08/22 06/30/22 Daylin Ludwig EP [facility] [address] [place] [address] Cardiac Rehabilitation Therapist 05/16/23 Laurel Velasquez MD [address] [place] [address] Assigned Heart and Vascular Provider 05/13/22 06/30/22 Daylin Ludwig EP [facility] [address] [place] [address] Cardiac Rehabilitation Therapist 06/08/22 06/09/23 Paula Reza MD [address] [facility] 200 [place], [place] [address] Assigned PCP 07/01/22 07/07/22 Porsha Michaels APRN MANAGER CLINICAL SERVICES [address] [place] [address] Assigned Heart and Vascular Provider 07/01/22 07/07/22 Laurel Velasquez MD [address] [place] [address] Assigned Heart and Vascular Provider 07/08/22 08/04/22 Shahida Sutton APRN MANAGER CLINICAL SERVICES Assigned PCP 07/08/22 09/08/22 Marilin Montaño, MANAGER CLINICAL SERVICES [address] [place] [address] Assigned Heart and Vascular Provider 08/05/22 Esha Dewitt MD [address] [place] [address] 36 [place], [place] [address] Gastroenterology 09/06/22 Heather Mosquera MD [address] [place] [address] Internal Medicine 09/06/22 Paula Reza MD [address] [facility] 200 [place] [address] Assigned PCP 09/09/22 01/05/23 Esha Dewitt MD [address] [facility] 36 [place], [place] [address] Assigned Gastroenterology Provider 09/23/22 Valdo Escamilla PA-C [address] [facility] [address] [place], [place] [address] Assigned Neuroscience Provider 09/30/22 Nohelia Abarca PA-C [address] [facility] [place], [place] [address] Physician Gas Leak Inspector Helper Gastroenterology 10/03/22 Heather Mosquera MD 65[address] [facility] 150 [place], [place] [address] Assigned PCP 01/06/23 Fawad [place] MD [address] [place], [place] [address] Assigned Musculoskeletal Provider 04/27/23 06/25/23 documented as of this encounter
--- OUTSIDE RECORDS SUMMARY | 2023-09-21 08:32 | XMS_ITS | Encounter Summary ---
Author Organization [place] Address [address] [place] [address] Care Team Providers Care English Faculty Member Name Role Phone Shahida Suttontim ZEPEDA CNP Unavailable Un available Roopa Almonte MD Unavailable [phone] Augustine Callaway MD Unavailable Maryse Burton PA-C Unavailable Roopa Almonte MD Unavailable [phone] Griffin Joshi MD Unavailable Rina Magallon RN Unavailable [phone] Paula Reza MD Primary Care Provider [phone] Griffin Joshi MD Unavailable Roopa Almonte MD Unavailable [phone] Basilio Morillo DO Unavailable Lydia BernsteinC Unavailable Rosa Maria Love Unavailable [phone] Augustine Callaway MD Unavailable Paula Reza MD Unavailable Keerthi Miner APRN SHODDY MILL WORKER Unavailable Herman, Shahida Cummings APRN SHODDY MILL WORKER Unavailable Un available Porsha Michaels APRN SHODDY MILL WORKER Unavailable [phone] Paula Reza MD Unavailable Herman, Shahida Cummings APRN SHODDY MILL WORKER Unavailable Un available Daylin Ludwig Unavailable [phone] Laurel Velasquez MD Unavailable [phone] Daylin Ludwig EP Unavailable [phone] Paula Reza MD Unavailable Porsha Michaels APRN SHODDY MILL WORKER Unavailable [phone] Laurel Velasquez MD Unavailable Herman, Shahida Cummings APRN SHODDY MILL WORKER Unavailable Un available Marilin Montaño SHODDY MILL WORKER Unavailable [phone] Esha Dewitt MD Unavailable [phone] Heather Mosquera MD Unavailable Paula Reza MD Unavailable Esha Dewitt MD Unavailable [phone] Valdo Escamilla PA-C Unavailable [phone] Nohelia Abarca PA-C Unavailable [phone] Heather Mosquera MD Unavailable [phone] Fawad [place] MD Unavailable [phone] Encounter Details Date Type Department Care Team (Late st Contact Info) Description 09/08/2021 MyC Medical Advice [place] [address] [place] [phone] Denisse Gamboa, RN Social [...] documented as of this encounter Care Teams English Faculty Member Relationship Specialty Start Date End Date Paula Reza MD [address] [place] [address] PCP - General Internal Medicine 08/05/21 Shahida Sutton APRN SHODDY MILL WORKER Assigned PCP 07/12/14 09/30/21 Roopa Almonte MD [address] [place] [address] Endocrinology, Diabetes, and Metabolism 01/19/21 [place] [address] [facility] 300 [place] [address] Assigned Musculoskeletal Provider 02/06/21 09/16/21 Maryse Burton PA-C [address] [place] [address] Physician Roller Checker Dermatology 04/14/21 Roopa Almonte MD [address] [facility] 200 [place] [address] Hospitalist Endocrinology, Diabetes, and Metabolism 05/30/21 Griffin Joshi MD [address] [facility] [address] [place] [address] Cardiovascular Disease 07/25/21 Rina Magallon, RN Lead Sort Line Worker 07/29/21 07/11/22 Griffin Joshi MD [address] [facility] [address] [place] [address] Assigned Heart and Vascular Provider 08/06/21 10/07/21 Roopa Almonte MD [address] [facility] 200 [place], [place] [address] Assigned Endocrinology Provider 09/10/21 [place] [address] [facility] [place] [address] Assigned Musculoskeletal Provider 09/17/21 10/14/21 Lydia Bernstein PA-C [address] [place] [address] Assigned PCP 10/01/21 10/21/21 Rosa Maria Love W Community Health Worker 10/06/21 07/11/22 [place] [address] [address] [place] [address] Assigned Musculoskeletal Provider 10/15/21 04/26/23 Paula Reza MD [address] [place] [address] Assigned PCP 10/22/21 12/23/21 Keerthi Miner APRN SHODDY MILL WORKER [address] [place] [address] Assigned Heart and Vascular Provider 10/08/21 02/10/22 Shahida Sutton APRN SHODDY MILL WORKER Assigned PCP 12/24/21 03/24/22 Porsha Michaels APRN SHODDY MILL WORKER [address] [place] [address] Assigned Heart and Vascular Provider 02/11/22 05/12/22 Paula Reza MD [address] [place] [address] Assigned PCP 03/25/22 04/07/22 Shahida Sutton APRN SHODDY MILL WORKER [address] [place] [address] Assigned PCP 04/08/22 06/30/22 Daylin Ludwig EP [facility] [address] [place] [address] Cardiac Rehabilitation Therapist 05/16/23 Laurel Velasquez MD [address] [place] [address] Assigned Heart and Vascular Provider 05/13/22 06/30/22 Daylin Ludwig, EP [facility] [address] [place] [address] Cardiac Rehabilitation Therapist 06/08/22 06/09/23 Paula Reza MD [address] [address] Assigned PCP 07/01/22 07/07/22 Porsha Michaels APRN SHODDY MILL WORKER [address] [place] [address] Assigned Heart and Vascular Provider 07/01/22 07/07/22 Laurel Velasquez MD [address] [place] [address] Assigned Heart and Vascular Provider 07/08/22 08/04/22 Shahida Sutton APRN SHODDY MILL WORKER Assigned PCP 07/08/22 09/08/22 Marilin Montaño, SHODDY MILL WORKER [address] [place] [address] Assigned Heart and Vascular Provider 08/05/22 Esha Dewitt MD [address] [address] Gastroenterology 09/06/22 Heather Mosquera MD 6545 [facility] 150 [place] [address] Internal Medicine 09/06/22 Paula Reza MD [address] [facility] 200 [place] [address] Assigned PCP 09/09/22 01/05/23 Esha Dewitt MD [address] [address] Assigned Gastroenterology Provider 09/23/22 Valdo Escamilla PA-C [address] [facility] 103 [place] [address] Assigned Neuroscience Provider 09/30/22 Nohelia Abarca PA-C [address] [place] [address] Physician Roller Checker Gastroenterology 10/03/22 Heather Mosquera MD [facility] 150 [place] [address] Assigned PCP 01/06/23 Fawad [place] MD 9[address] [place], [place] [address] Assigned Musculoskeletal Provider 04/27/23 06/25/23 documented as of this encounter
--- OUTSIDE RECORDS SUMMARY | 2023-09-21 08:32 | XMS_ITS | Encounter Summary ---
Author Organization [place] Address [address] [place] [address] Care Team Providers Care Cook Mess Name Role Phone HermanShahida APRN PROCESS OPERATOR Primary Care Provi ford Unavailable Shahida Sutton APRN PROCESS OPERATOR Unavailable Un available Carolynn Ramon RN Unavailable [phone] Anabela Barakat APRN PROCESS OPERATOR Unavailable Roopa Almonte MD Unavailable [phone] Augustine Callaway MD Unavailable Maryse Burton PA-C Unavailable [phone] Roopa Almonte MD Unavailable [phone] Griffin Joshi MD Unavailable Rina Magallon RN Unavailable [phone] Paula Reza MD Primary Care Provider [phone] Griffin Joshi MD Unavailable Roopa Almonte MD Unavailable [phone] Basilio Morillo DO Unavailable [phone] Lydia Bernsteni PA-C Unavailable Kate Rosa Maria Cristina Unavailable Augustine Callaway MD Unavailable Paula Reza MD Unavailable Keerthi Miner APRN PROCESS OPERATOR Unavailable Herman, Shahida Cummings HEALTH AND WELLNESS COACH PROCESS OPERATOR Unavailable Un available Porsha Michaels APRN PROCESS OPERATOR Unavailable [phone] Paula Reza MD Unavailable Herman, Shahida Cummings APRN PROCESS OPERATOR Unavailable Un available Daylin Ludwig EP Unavailable [phone] Laurel Velasquez MD Unavailable [phone] Fietedavid, Daylin Juárez EP Unavailable [phone] Paula Reza MD Unavailable Porsha Michaels APRN PROCESS OPERATOR Unavailable [phone] Laurel Velasquez MD Unavailable [phone] Herman, Shahida Cummings APRN PROCESS OPERATOR Unavailable Un available Mrailin Montaño PROCESS OPERATOR Unavailable [phone] Esha Dewitt MD Unavailable [phone] Heather Mosquera MD Unavailable [phone] Paula Reza MD Unavailable Esha Dewitt MD Unavailable [phone] Valdo Escamilla PA-C Unavailable + [phone] Nohelia Abarca PA-C Unavailable [phone] Heather Mosquera MD Unavailable [phone] Fawad York MD Unavailable [phone] Encounter Details Date Type Department Care Team (Late st Contact Info) Description 05/24/2021 [facility] [address] [address] Anthony, Mary Kay, [place] Social [...] COVID-19? 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 as of this encounter Plan [...] documented as of this encounter Care Teams Cook Mess Relationship Specialty Start Date End Date Shahida Sutton APRN PROCESS OPERATOR PCP - General Nurse Practitioner 08/17/14 08/04/21 Paula Reza MD [address] [facility] [address] [place] [address] PCP - General Internal Medicine 08/05/21 Shahida Sutton APRN PROCESS OPERATOR Assigned PCP 07/12/14 09/30/21 Carolynn Ramon RN Personal Advocate & Liaison (PAL) 12/17/18 08/07/21 Anabela Barakat APRN PROCESS OPERATOR [address] [place] [address] Assigned Heart and Vascular Provider 08/15/20 08/05/21 Roopa Almonte MD [address] [facility] 200 [place] [address] Endocrinology, Diabetes, and Metabolism 01/19/21 [place] [address] [facility] 300 [place] [address] Assigned Musculoskeletal Provider 02/06/21 09/16/21 Maryse Burton PA-C [address] [place] [address] Physician Show Operations Supervisor Dermatology 04/14/21 Roopa Almonte MD [address] [facility] 200 [place] [address] Hospitalist Endocrinology, Diabetes, and Metabolism 05/30/21 Griffin Joshi MD [address] [facility] [address] [place] [address] Cardiovascular Disease 07/25/21 Rina Magallon, RN Lead Diesel Technician Mechanic 07/29/21 07/11/22 Griffin Joshi MD [address]405 [facility] [address] [place] [address] Assigned Heart and Vascular Provider 08/06/21 10/07/21 Roopa Almonte MD [address] 200 [place] [address] Assigned Endocrinology Provider 09/10/21 [place] [address] [facility] [address] [place] [address] Assigned Musculoskeletal Provider 09/17/21 10/14/21 Lydia Bernstein PA-C [address] [place] [address] Assigned PCP 10/01/21 10/21/21 Rosa Maria Love CHW Community Health Worker 10/06/21 07/11/22 [place] [address] [place] [address] Assigned Musculoskeletal Provider 10/15/21 04/26/23 Paula Reza MD [address] [facility] 200 [place] [address] Assigned PCP 10/22/21 12/23/21 Keerthi Miner APRN PROCESS OPERATOR [address] [place] [address] Assigned Heart and Vascular Provider 10/08/21 02/10/22 Shahida Sutton APRN PROCESS OPERATOR Assigned PCP 12/24/21 03/24/22 Porsha Michaels APRN PROCESS OPERATOR [address] [place] [address] Assigned Heart and Vascular Provider 02/11/22 05/12/22 Paula Reza MD [address] [place] [address] Assigned PCP 03/25/22 04/07/22 Shahida Sutton APRN PROCESS OPERATOR [address] [place] [address] Assigned PCP 04/08/22 06/30/22 Daylin Ludwig, EP [facility] [address] [place] [address] Cardiac Rehabilitation Therapist 05/16/23 Laurel Velasquez MD [address] [place] [address] Assigned Heart and Vascular Provider 05/13/22 06/30/22 Daylin Ludwig, MIKI [facility] [address] [place] [address] Cardiac Rehabilitation Therapist 06/08/22 06/09/23 Paula Reza MD [address] [place] [address] Assigned PCP 07/01/22 07/07/22 Porsha Michaels APRN PROCESS OPERATOR [address] [place] [address] Assigned Heart and Vascular Provider 07/01/22 07/07/22 Laurel Velasquez MD [address] [place] [address] Assigned Heart and Vascular Provider 07/08/22 08/04/22 Shahida Sutton APRN PROCESS OPERATOR Assigned PCP 07/08/22 09/08/22 Marilin Montaño, PROCESS OPERATOR [address] [facility] [place] [address] Assigned Heart and Vascular Provider 08/05/22 Esha Dewitt MD [address] [address] MD Gastroenterology 09/06/22 Heather Mosquera MD [address] [place], [place] [address] Internal Medicine 09/06/22 Paula Reza MD [address] [facility] 200 [place], [place] [address] Assigned PCP 09/09/22 01/05/23 Esha Dewitt MD [address] [place] [address] Assigned Gastroenterology Provider 09/23/22 Valdo Escamilla PA-C [address] [facility] [address] [place] [address] Assigned Neuroscience Provider 09/30/22 Nohelia Abarca PA-C [address]50 [place] [address] Physician Show Operations Supervisor Gastroenterology 10/03/22 Heather Mosquera MD [address] [place] [address] Assigned PCP 01/06/23 Fawad York MD 9 [place] [address] Assigned Musculoskeletal Provider 04/27/23 06/25/23 documented as of this encounter
--- OUTSIDE RECORDS SUMMARY | 2023-09-21 08:32 | XMS_ITS | Encounter Summary ---
Author Organization [place] Address [address] [place] [address] Care Team Providers Care Evidence Custodian Name Role Phone Shahida Sutton APRN PIPE LINER Unavailable Un available Roopa Almonte MD Unavailable [phone] Maryse Burton PA-C Unavailable Roopa Almonte MD Unavailable [phone] Griffin Joshi MD Unavailable Rina Magallon RN Unavailable [phone] Paula Reza MD Primary Care Provider [phone] Griffin Joshi MD Unavailable Roopa Almonte MD Unavailable [phone] Basilio Morillo DO Unavailable [phone] Lydia BernsteinC Unavailable Rosa Maria Love Unavailable [phone] Augustine Callaway MD Unavailable Paula Reza MD Unavailable Keerthi Miner APRN PIPE LINER Unavailable [phone] Herman, Shahida Cummings APRN PIPE LINER Unavailable Un available Porsha Michaels APRN PIPE LINER Unavailable Paula Reza MD Unavailable Herman, Shahida Cummings APRN PIPE LINER Unavailable Un available Daylin Ludwig Unavailable Laurel Velasquez MD Unavailable Daylin Ludwig Unavailable Paula Reza MD Unavailable Porsah Michaels APRN PIPE LINER Unavailable Laurel Velasquez MD Unavailable Herman, Shahida Cummings WEATHER STRIPPER PIPE LINER Unavailable Un available Marilin Montaño PIPE LINER Unavailable Esha Dewitt MD Unavailable [phone] Heather Mosquera MD Unavailable Paula Reza MD Unavailable Esha Dewitt MD Unavailable [phone] Valdo Escamilla PA-C Unavailable Nohelia Abarca PA-C Unavailable [phone] Heather Mosquera MD Unavailable [phone] Fawad York MD Unavailable [phone] Encounter Details Date Type Department Care Team (Late st Contact Info) Description 09/29/2021 MyC Medical Advice [facility] [place] [address] [facility] [address] [place] [address] [place] [address] [facility] [place] [address] Social History Tobacco Use Types Packs/Day Years [...] documented as of this encounter Care Teams Evidence Custodian Relationship Specialty Start Date End Date Paula Reza MD [address] [address] PCP - General Internal Medicine 08/05/21 Shahida Sutton APRN PIPE LINER Assigned PCP 07/12/14 09/30/21 Roopa Almonte MD [address] [facility] 200 [place] [address] Endocrinology, Diabetes, and Metabolism 01/19/21 Maryse Burton, HUYC [address] [place] [address] Physician Online Education Manager Dermatology 04/14/21 Roopa Almonte MD [address] [facility] 200 [place] [address] Hospitalist Endocrinology, Diabetes, and Metabolism 05/30/21 Griffin Joshi MD [address] [facility] [address] [place], [place] [address] Cardiovascular Disease 07/25/21 Rina Magallon, RN Lead Schedule Supervisor 07/29/21 07/11/22 Griffin Joshi MD [address] [place] [address] Assigned Heart and Vascular Provider 08/06/21 10/07/21 Roopa Almonte MD [address] [facility] 200 [place], [place] [address] Assigned Endocrinology Provider 09/10/21 [place] [address] [facility] [place] [address]329 Assigned Musculoskeletal Provider 09/17/21 10/14/21 Lydia Bernstein PA-C [address] [place] [address] Assigned PCP 10/01/21 10/21/21 Rosa Maria Love CHW Community Health Worker 10/06/21 07/11/22 [place] [address] [facility] 300 [place] [address] Assigned Musculoskeletal Provider 10/15/21 04/26/23 Paula Reza MD [address] [facility] 200 [place], [place] [address] Assigned PCP 10/22/21 12/23/21 Keerthi Miner APRN PIPE LINER [address] [place] [address] Assigned Heart and Vascular Provider 10/08/21 02/10/22 Shahida Sutton APRN PIPE LINER Assigned PCP 12/24/21 03/24/22 Porsha Michaels APRN PIPE LINER [address] [place] [address] Assigned Heart and Vascular Provider 02/11/22 05/12/22 Paula Reza MD [address] [place] [address] Assigned PCP 03/25/22 04/07/22 Shahida Sutton APRN PIPE LINER [address] [place] [address] Assigned PCP 04/08/22 06/30/22 Daylin Ludwig, EP [facility] [address] [place] [address] Cardiac Rehabilitation Therapist 05/16/23 Laurel Velasquez MD [address] [place] [address] Assigned Heart and Vascular Provider 05/13/22 06/30/22 Daylin Ludwig, EP [facility] [address] [place] 563375 Cardiac Rehabilitation Therapist 06/08/22 06/09/23 Paula Reza MD [address] [place] [address] Assigned PCP 07/01/22 07/07/22 Porsha Michaels APRN PIPE LINER [address] [place] [address] Assigned Heart and Vascular Provider 07/01/22 07/07/22 Laurel Velasquez MD [address] [place] [address] Assigned Heart and Vascular Provider 07/08/22 08/04/22 Shahida Sutton, DUANE PIPE LINER Assigned PCP 07/08/22 09/08/22 Marilin Montaño, PIPE LINER [address] [place] [address] Assigned Heart and Vascular Provider 08/05/22 Esha Dewitt MD [address] [address] MD Gastroenterology 09/06/22 Heather Mosquera MD [address] [place] [address] Internal Medicine 09/06/22 Paula Reza MD [address] [facility] [address] [place], [place] [address] Assigned PCP 09/09/22 01/05/23 Esha Dewitt MD [address] [address] Assigned Gastroenterology Provider 09/23/22 Valdo Escamilla PA-C [address] [place] [address] Assigned Neuroscience Provider 09/30/22 Nohelia Abarca PA-C 2450 [place] [address] Physician Online Education Manager Gastroenterology 10/03/22 Heather Mosquera MD 6545 [facility] 150 [place] [address] Assigned PCP 01/06/23 Fawad [place] MD 909 [place], [place] [address] Assigned Musculoskeletal Provider 04/27/23 06/25/23 documented as of this encounter
--- OUTSIDE RECORDS SUMMARY | 2023-09-21 08:32 | XMS_ITS | Encounter Summary ---
Author Organization [place] Address [address] [place] [address] Care Team Providers Care Tipple Oiler Name Role Phone Shahida Suttontim ZEPEDA CNP Unavailable Un available Roopa Almonte MD Unavailable [phone] Augustine Callaway MD Unavailable Maryse Burton PA-C Unavailable Roopa Almonte MD Unavailable [phone] Griffin Joshi MD Unavailable Rina Magallon RN Unavailable [phone] Paula Reza MD Primary Care Provider [phone] Griffin Joshi MD Unavailable Roopa Almonte MD Unavailable [phone] Basilio Morillo DO Unavailable Lydia BernsteinC Unavailable Rosa Maria Love Unavailable [phone] Augustine Callaway MD Unavailable Paula Reza MD Unavailable Keerthi Miner APRN ROSS LIFT OPERATOR Unavailable [phone] Herman, Shahida Cummings APRN ROSS LIFT OPERATOR Unavailable Un available Porsha Michaels APRN ROSS LIFT OPERATOR Unavailable [phone] Paula Reza MD Unavailable Herman, Shahida Cummings APRN ROSS LIFT OPERATOR Unavailable Un available Daylin Ludwig Unavailable [phone] Laurel Velasquez MD Unavailable [phone] Daylin Ludwig Unavailable [phone] Paula Reza MD Unavailable Porsha Michaels APRN ROSS LIFT OPERATOR Unavailable [phone] Laurel Velasquez MD Unavailable [phone] Herman, Shahida Cummings APRN ROSS LIFT OPERATOR Unavailable Un available Marilin Montaño ROSS LIFT OPERATOR Unavailable [phone] Esha Dewitt MD Unavailable [phone] Heather Mosquera MD Unavailable [phone] Paula Reza MD Unavailable Esha Dewitt MD Unavailable [phone] Valdo Escamilla PA-C Unavailable + [phone] Nohelia Abarca PA-C Unavailable [phone] Heather Mosquera MD Unavailable [phone] Fawad York MD Unavailable [phone] Reason for Visit * Reason Comments Medication Refill Encounter Details Date Type Department Care Team (Late st Contact Info) Description 08/17/[address] [address] Shahida Sutton APRN CNP Medication [...] documented as of this encounter Care Teams Tipple Oiler Relationship Specialty Start Date End Date Paula Reza MD [address] [facility] 200 [place] [address] PCP - General Internal Medicine 08/05/21 Shahida Sutton APRN ROSS LIFT OPERATOR Assigned PCP 07/12/14 09/30/21 Roopa Almonte MD [address] [facility] 200 [place] [address] Endocrinology, Diabetes, and Metabolism 01/19/21 [place] [address] [facility] 300 [place] [address] Assigned Musculoskeletal Provider 02/06/21 09/16/21 Maryse Burton PA-C [address] [place] [address] Physician Ceiling Installer Dermatology 04/14/21 Roopa Almonte MD [address] [place] [facility] 200 [place] [address] Hospitalist Endocrinology, Diabetes, and Metabolism 05/30/21 Griffin Joshi MD [address] [facility] [address] [place] [address] Cardiovascular Disease 07/25/21 Rina Magallon, RN Lead Shortage Worker 07/29/21 07/11/22 Griffin Joshi MD [address] [facility] [address] [place] [address] Assigned Heart and Vascular Provider 08/06/21 10/07/21 Roopa Almonte MD [address] [facility] 200 [place], [place] [address] Assigned Endocrinology Provider 09/10/21 [place] [address] [facility] [place] [address] Assigned Musculoskeletal Provider 09/17/21 10/14/21 Lydia Bernstein PA-C [address] [place] [address]515 Assigned PCP 10/01/21 10/21/21 Rosa Maria Love Cristina Community Health Worker 10/06/21 07/11/22 [place] [address] [place] [address] Assigned Musculoskeletal Provider 10/15/21 04/26/23 Paula Reza MD [address] 200 [place] [address] Assigned PCP 10/22/21 12/23/21 Keerthi Miner APRN ROSS LIFT OPERATOR [address] [place] [address] Assigned Heart and Vascular Provider 10/08/21 02/10/22 Shahida Sutton, STITCHING DEPARTMENT SUPERVISOR ROSS LIFT OPERATOR Assigned PCP 12/24/21 03/24/22 Porsha Michaels APRN ROSS LIFT OPERATOR [address] [place] [address] Assigned Heart and Vascular Provider 02/11/22 05/12/22 Paula Reza MD [address] [place] [address] Assigned PCP 03/25/22 04/07/22 Shahida Sutton APRN ROSS LIFT OPERATOR [address] [place] [address] Assigned PCP 04/08/22 06/30/22 Daylin Ludwig, MIKI [facility] [address] [place] [address] Cardiac Rehabilitation Therapist 05/16/23 Laurel Velasquez MD [address] [place] [address] Assigned Heart and Vascular Provider 05/13/22 06/30/22 Daylin Ludwig, [facility]KI [facility] [address] [place] [address] Cardiac Rehabilitation Therapist 06/08/22 06/09/23 Paula Reza MD [address] [facility] 200 [place] [address] Assigned PCP 07/01/22 07/07/22 Porsha Michaels APRN ROSS LIFT OPERATOR [address] [address] Assigned Heart and Vascular Provider 07/01/22 07/07/22 Laurel Velasquez MD [address] [place] [address] Assigned Heart and Vascular Provider 07/08/22 08/04/22 Shahida Sutton APRN ROSS LIFT OPERATOR Assigned PCP 07/08/22 09/08/22 Marilin Montaño, ROSS LIFT OPERATOR [address] [place] [address] Assigned Heart and Vascular Provider 08/05/22 Esha Dewitt MD 420 [facility] 36 [place], [place] [address] Gastroenterology 09/06/22 Heather Mosquera MD [address] [place] [address] Internal Medicine 09/06/22 Paula Reza MD [address] [facility] 200 [place], [place] [address] Assigned PCP 09/09/22 01/05/23 Esha Dewitt MD 420 [facility] 36 [place], [place] [address] Assigned Gastroenterology Provider 09/23/22 Valdo Escamilla PA-C [address] [place] [id number] Assigned Neuroscience Provider 09/30/22 Nohelia Abarca PA-C [address] [place] [address] Physician Ceiling Installer Gastroenterology 10/03/22 Heather Mosquera MD [address] [place] [address] Assigned PCP 01/06/23 Fawad [place] MD 909 [place] [address] Assigned Musculoskeletal Provider 04/27/23 06/25/23 documented as of this encounter
--- OUTSIDE RECORDS SUMMARY | 2023-09-21 08:32 | XMS_ITS | Encounter Summary ---
Author Organization [place] Address [address] [place] [address] Care Team Providers Care Baggageman Name Role Phone Shahida Suttontim ZEPEDA CNP Unavailable Un available Roopa Almonte MD Unavailable [phone] Augustine Callaway MD Unavailable Maryse Burton PA-C Unavailable Roopa Almonte MD Unavailable [phone] Griffin Joshi MD Unavailable Rina Magallon RN Unavailable [phone] Paula Reza MD Primary Care Provider [phone] Griffin Joshi MD Unavailable Roopa Almonte MD Unavailable [phone] Basilio Morillo DO Unavailable Lydia BernsteinC Unavailable Rosa Maria Love Unavailable [phone] Augustine Callaway MD Unavailable Paula Reza MD Unavailable Keerthi Miner DRAFTER CHIEF DESIGN MOLD YARD SUPERVISOR Unavailable Herman, Shahida Cummings APRN MOLD YARD SUPERVISOR Unavailable Un available Porsha Michaels APRN MOLD YARD SUPERVISOR Unavailable [phone] Paula Reza MD Unavailable Herman, Shahida Cummings APRN MOLD YARD SUPERVISOR Unavailable Un available Daylin Ludwig Unavailable [phone] Laurel Velasquez MD Unavailable [phone] Daylin Ludwig EP Unavailable [phone] Paula Reza MD Unavailable Porsha Michaels APRN MOLD YARD SUPERVISOR Unavailable +[phone] Laurel Velasquez MD Unavailable [phone] Herman, Shahida Cummings APRN MOLD YARD SUPERVISOR Unavailable Un available Marilin Montaño MOLD YARD SUPERVISOR Unavailable [phone] Esha Dewitt MD Unavailable [phone] Heather Mosquera MD Unavailable [phone] Paula Reza MD Unavailable Esha Dewitt MD Unavailable [phone] Valdo Escamilla PA-C Unavailable + [phone] Nohelia Abarca PA-C Unavailable [phone] Heather Mosquera MD Unavailable [phone] Fawad York MD Unavailable [phone] Encounter Details Date Type Department Care Team (Late st Contact Info) Description 08/09/2021 MyC Medical Advice [facility] Anticoagulation Clinic [address] [place] [id number] Jessica Lemus RN Social History Tobacco [...] documented as of this encounter Care Teams Baggageman Relationship Specialty Start Date End Date Paula Reza MD [address] [facility] 200 [place] [address] PCP - General Internal Medicine 08/05/21 Shahida Sutton APRN MOLD YARD SUPERVISOR Assigned PCP 07/12/14 09/30/21 Roopa Almonte MD [address] [facility] 200 [place] [address] Endocrinology, Diabetes, and Metabolism 01/19/21 [place] [address] [facility] 300 [place] [address] Assigned Musculoskeletal Provider 02/06/21 09/16/21 Maryse Burton PA-C 5200 [place] [address] Physician Supervisor Research Shop Dermatology 04/14/21 Roopa Almonte MD [address] [facility] 200 [place] [address] Hospitalist Endocrinology, Diabetes, and Metabolism 05/30/21 Griffin Joshi MD [address] [facility] [address] [place] [address] Cardiovascular Disease 07/25/21 Rina Magallon, RN Lead Prison Warden 07/29/21 07/11/22 Griffin Joshi MD [address] [facility] [address] [place] [address] Assigned Heart and Vascular Provider 08/06/21 10/07/21 Roopa Almonte MD [address] [facility] 200 [place], [place] [address] Assigned Endocrinology Provider 09/10/21 [place] [address] [facility] [place] 604869 Assigned Musculoskeletal Provider 09/17/21 10/14/21 Lydia Bernstein PA-C [address] [place] [address] Assigned PCP 10/01/21 10/21/21 Rosa Maria Love CHW Community Health Worker 10/06/21 07/11/22 [place] [address] [place] [address] Assigned Musculoskeletal Provider 10/15/21 04/26/23 Paula Reza MD [address] 200 [place] [address] Assigned PCP 10/22/21 12/23/21 Keerthi Miner APRN MOLD YARD SUPERVISOR [address] [place] [address] Assigned Heart and Vascular Provider 10/08/21 02/10/22 Shahida Sutton APRN MOLD YARD SUPERVISOR Assigned PCP 12/24/21 03/24/22 Porsha Michaels APRN MOLD YARD SUPERVISOR [address] [place] [address] Assigned Heart and Vascular Provider 02/11/22 05/12/22 Paula Reza MD [address] 200 [place] [address] Assigned PCP 03/25/22 04/07/22 Shahida Sutton APRN MOLD YARD SUPERVISOR [address] [place] [address] Assigned PCP 04/08/22 06/30/22 Daylin Ludwig, MIKI [facility] [address] [place] [address] Cardiac Rehabilitation Therapist 05/16/23 Laurel Velasquez MD [address] [place] [address] Assigned Heart and Vascular Provider 05/13/22 06/30/22 Daylin Ludwig, MIKI [facility] [address] [place] [address] Cardiac Rehabilitation Therapist 06/08/22 06/09/23 Paula Reza MD [address] 801847 Assigned PCP 07/01/22 07/07/22 Porsha Michaels APRN MOLD YARD SUPERVISOR [address] [place] [address] Assigned Heart and Vascular Provider 07/01/22 07/07/22 Laurel Velasquez MD [address] [place] [address] Assigned Heart and Vascular Provider 07/08/22 08/04/22 Shahida Sutton, DUANE MOLD YARD SUPERVISOR Assigned PCP 07/08/22 09/08/22 Marilin Montaño, MOLD YARD SUPERVISOR [address] [place] [address] Assigned Heart and Vascular Provider 08/05/22 Esha Dewitt MD 420 [facility] 36 [place] [address] Gastroenterology 09/06/22 Heather Mosquera MD [address] [place] [address] Internal Medicine 09/06/22 Paula Reza MD [address] [facility] 200 [place] [address] Assigned PCP 09/09/22 01/05/23 Esha Dewitt MD [address] [address] Assigned Gastroenterology Provider 09/23/22 Valdo Escamilla PA-C 6363 [facility] [address] [place] [address] Assigned Neuroscience Provider 09/30/22 Nohelia Abarca PA-C 2450 [place] [address] Physician Supervisor Research Shop Gastroenterology 10/03/22 Heather Mosquera MD [address] [place], [place] [address] Assigned PCP 01/06/23 Fawad York MD 909 [place], [place] [address] Assigned Musculoskeletal Provider 04/27/23 06/25/23 documented as of this encounter
--- OUTSIDE RECORDS SUMMARY | 2023-09-21 08:32 | XMS_ITS | Encounter Summary ---
Author Organization [place] Address [address] [place] [address] Care Team Providers Care Allopathic Doctor Name Role Phone Shahida Suttontim ZEPEDA CNP Unavailable Un available Roopa Almonte MD Unavailable [phone] Augustine Callaway MD Unavailable Maryse Burton PA-C Unavailable Roopa Almonte MD Unavailable [phone] Griffin Joshi MD Unavailable Rina Magallon RN Unavailable [phone] Paula Reza MD Primary Care Provider [phone] Griffin Joshi MD Unavailable Roopa Almonte MD Unavailable [phone] Basilio Morillo DO Unavailable Lydia BernsteinC Unavailable Rosa Maria Love Unavailable [phone] Augustine Callaway MD Unavailable Paula Reza MD Unavailable Keerthi Miner SEAT TRIMMER DIRECTOR OF BROADCAST Unavailable [phone] Herman, Shahida Cummings APRN DIRECTOR OF BROADCAST Unavailable Un available Porsha Michaels APRN DIRECTOR OF BROADCAST Unavailable +[phone] Paula Reza MD Unavailable Herman, Shahida Cummings APRN DIRECTOR OF BROADCAST Unavailable Un available Daylin Ludwig Unavailable [phone] Laurel Velasquez MD Unavailable [phone] Daylin Ludwig EP Unavailable [phone] Paula Reza MD Unavailable Porsha Michaels APRN DIRECTOR OF BROADCAST Unavailable +[phone] Laurel Velasquez MD Unavailable [phone] Herman, Shahida Cummings APRN DIRECTOR OF BROADCAST Unavailable Un available Marilin Montaño DIRECTOR OF BROADCAST Unavailable [phone] Esha Dewitt MD Unavailable [phone] Heather Mosquera MD Unavailable [phone] Paula Reza MD Unavailable Esha Dewitt MD Unavailable [phone] Valdo Escamilla PA-C Unavailable [phone] Nohelia Abarca PA-C Unavailable [phone] Heather Mosquera MD Unavailable [phone] Fawad York MD Unavailable [phone] Encounter Details Date Type Department Care Team (Late st Contact Info) Description 08/29/2021 [facility] Endocrinology Clinic [address] [address] [facility] Social History Tobacco Use Types Packs/Day Years [...] documented as of this encounter Care Teams Allopathic Doctor Relationship Specialty Start Date End Date Paula Reza MD [address] [facility] 200 [place] [address] PCP - General Internal Medicine 08/05/21 Shahida Sutton APRN DIRECTOR OF BROADCAST Assigned PCP 07/12/14 09/30/21 Roopa Almonte MD [address] [facility] 200 [place] [address] Endocrinology, Diabetes, and Metabolism 01/19/21 [place] [address] [facility] 300 [place] [address] Assigned Musculoskeletal Provider 02/06/21 09/16/21 Maryse Burton PA-C 5200 [place] [address] Physician Solar Sales Representative Dermatology 04/14/21 Roopa Almonte MD [address] [facility] 200 [place] [address] Hospitalist Endocrinology, Diabetes, and Metabolism 05/30/21 Griffin Joshi MD [address] [facility] [address] [place] [address] Cardiovascular Disease 07/25/21 Rina Magallon, RN Lead Armored Vehicle Officer 07/29/21 07/11/22 Griffin Joshi MD [address] [facility] [address] [place] [address] Assigned Heart and Vascular Provider 08/06/21 10/07/21 Roopa Almonte MD [address] [facility] 200 [place], [place] [address] Assigned Endocrinology Provider 09/10/[address] [place] [address] [facility] [place] 344519 Assigned Musculoskeletal Provider 09/17/21 10/14/21 Lydia Bernstein PA-C [address] [place] [address] Assigned PCP 10/01/21 10/21/21 Rosa Maria Love CHW Community Health Worker 10/06/21 07/11/22 [place] [address] [place] [address] Assigned Musculoskeletal Provider 10/15/21 04/26/23 Paula Reza MD [address] [place] [address] Assigned PCP 10/22/21 12/23/21 Keerthi Miner APRN DIRECTOR OF BROADCAST [address] [place] [address] Assigned Heart and Vascular Provider 10/08/21 02/10/22 Shahida Sutton APRN DIRECTOR OF BROADCAST Assigned PCP 12/24/21 03/24/22 Porsha Michaels APRN DIRECTOR OF BROADCAST [address] [place] [address] Assigned Heart and Vascular Provider 02/11/22 05/12/22 Paula Reza MD [address] [place] [address] Assigned PCP 03/25/22 04/07/22 Shahida Sutton APRN DIRECTOR OF BROADCAST [address] [place] [address] Assigned PCP 04/08/22 06/30/22 Daylin Ludwig, MIKI [facility] [address] [place] [address] Cardiac Rehabilitation Therapist 05/16/23 Laurel Velasquez MD [address] [place] [address] Assigned Heart and Vascular Provider 05/13/22 06/30/22 Daylin Ludwig, MIKI [facility] [address] [place] [address] Cardiac Rehabilitation Therapist 06/08/22 06/09/23 Paula Reza MD [address] [address] Assigned PCP 07/01/22 07/07/22 Porsha Michaels APRN DIRECTOR OF BROADCAST [address] [place] [address] Assigned Heart and Vascular Provider 07/01/22 07/07/22 Laurel Velasquez MD [address] [place] [address] Assigned Heart and Vascular Provider 07/08/22 08/04/22 Shahida Sutton, DUANE DIRECTOR OF BROADCAST Assigned PCP 07/08/22 09/08/22 Marilin Montaño, DIRECTOR OF BROADCAST [address] [place] [address] Assigned Heart and Vascular Provider 08/05/22 Esha Dewitt MD 420 [facility] 36 [place] [address] Gastroenterology 09/06/22 Heather Mosquera MD [address] [place] [address] Internal Medicine 09/06/22 Paula Reza MD 303 E [facility] 200 [place] [address] Assigned PCP 09/09/22 01/05/23 Esha Dewitt MD [address] [address] Assigned Gastroenterology Provider 09/23/22 Valdo Escamilla PA-C [address] [facility] [address] [place] [address] Assigned Neuroscience Provider 09/30/22 Nohelia Abarca PA-C 2450 [place] [address] Physician Solar Sales Representative Gastroenterology 10/03/22 Heather Mosquera MD [address] [place], [place] [address] Assigned PCP 01/06/23 Fawad York MD 909 [place], [place] [address] Assigned Musculoskeletal Provider 04/27/23 06/25/23 documented as of this encounter
--- OUTSIDE RECORDS SUMMARY | 2023-09-21 08:32 | XMS_ITS | Encounter Summary ---
Author Organization [place] Address [address] [place] [address] Care Team Providers Care Printing 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 Tape Rules Name Role Phone Roopa Almonte MD Unavailable [phone] Maryse Burton PA-C Unavailable [phone] Roopa Almonte MD Unavailable [phone] Griffin Joshi MD Unavailable Rina Magallon RN Unavailable [phone] Paula Reza MD Primary Care Provider [phone] Roopa Almonte MD Unavailable [phone] Rosa Maria Love Unavailable [phone] Augustine Callaway MD Unavailable Keerthi Miner APRN MOUNTAIN BIKE GUIDE Unavailable [phone] Shahida Sutton APRN MOUNTAIN BIKE GUIDE Unavailable Un available Porsha Michaels APRN MOUNTAIN BIKE GUIDE Unavailable [phone] Paula Reza MD Unavailable HermanShahida huerta APRN MOUNTAIN BIKE GUIDE Unavailable Un available Daylin Ludwig Unavailable [phone] Laurel Velasquez MD Unavailable OzielDaylin Marquita [place] Unavailable [phone] Paula Reza MD Unavailable Porsha Michaels APRN MOUNTAIN BIKE GUIDE Unavailable Laurel Velasquez MD Unavailable Shahida Sutton APRN MOUNTAIN BIKE GUIDE Unavailable Un available Marilin Montaño MOUNTAIN BIKE GUIDE Unavailable Esha Dewitt MD Unavailable [phone] Heather Mosquera MD Unavailable Paula Reza MD Unavailable Esha Dewitt MD Unavailable [phone] Valdo Escamilla PA-C Unavailable [phone] Nohelia Abarca PA-C Unavailable [phone] Heather Mosquera MD Unavailable [phone] Fawad York MD Unavailable [phone] Encounter Details Date Type Department Care Team (Late st Contact Info) Description 01/10/2022 [facility] Endocrinology Clinic [address] [address] [facility] Social History Tobacco Use Types Packs/Day Years [...] Coronavirus/COVID-19? 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 documented as of this encounter Plan of Treatment Not on file documented as of this encounter Visit Diagnoses Not on filedocumented in this encounter Additional Health Concerns Infection Onset Date Last Indicated Resolved Time ESBL 01/05/2021 01/05/2021 Assessment Noted Time PHQ-9 Depression Total Score: 7 01/04/20 22 4:11 PM CDT documented as of this encounter Care Teams Printing 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 Tape Rules Relationship Specialty Start Date End Date Paula Reza MD [address] [address] PCP - General Internal Medicine 08/05/21 Roopa Almonte MD [address] [facility] [address] [address] Endocrinology, Diabetes, and Metabolism 01/19/21 Maryse Burton, PAAna MariaC 5200 [place] [address] Physician Pad Extractor Tender Dermatology 04/14/21 Roopa Almonte MD [address] [address] Hospitalist Endocrinology, Diabetes, and Metabolism 05/30/21 Griffin Joshi MD [address] [place] [address] Cardiovascular Disease 07/25/21 Rina Magallon, RN Lead Acetylene Gas Compressor 07/29/21 07/11/22 Roopa Almonte MD [address] [facility] 200 [place], [place] [address] Assigned Endocrinology Provider 09/10/21 Rosa Maria Love CHW Community Health Worker 10/06/21 07/11/22 [place] [address] [facility] [address] [place] [address] Assigned Musculoskeletal Provider 10/15/21 04/26/23 Keerthi Miner APRN MOUNTAIN BIKE GUIDE [address] [place] [address] Assigned Heart and Vascular Provider 10/08/21 02/10/22 Shahida Sutton, DUANE MOUNTAIN BIKE GUIDE Assigned PCP 12/24/21 03/24/22 Porsha Michaels APRN MOUNTAIN BIKE GUIDE [address] [place] [address] Assigned Heart and Vascular Provider 02/11/22 05/12/22 Paula Reza MD [address] [facility] 200 [place], [place] [address] Assigned PCP 03/25/22 04/07/22 Shahida Sutton APRN MOUNTAIN BIKE GUIDE [address] [place] [address] Assigned PCP 04/08/22 06/30/22 Daylin Ludwig, MIKI [facility] [address] [place] [address] Cardiac Rehabilitation Therapist 05/16/23 Laurel Velasquez MD [address] [place] [place] [address] Assigned Heart and Vascular Provider 05/13/22 06/30/22 Daylin Ludwig, MIKI [facility] [address] [place] [address] Cardiac Rehabilitation Therapist 06/08/22 06/09/23 Paula Reza MD [address] [place] [address] Assigned PCP 07/01/22 07/07/22 Porsha Michaels APRN MOUNTAIN BIKE GUIDE [address] [place] [address]3945 Assigned Heart and Vascular Provider 07/01/22 07/07/22 Laurel Velasquez MD [address] [place] 342035 Assigned Heart and Vascular Provider 07/08/22 08/04/22 Shahida Sutton APRN MOUNTAIN BIKE GUIDE Assigned PCP 07/08/22 09/08/22 Marilin Montaño, MOUNTAIN BIKE GUIDE [address] [place] [address] Assigned Heart and Vascular Provider 08/05/22 Esha Dewitt MD [address] [address] Gastroenterology 09/06/22 Heather Mosquera MD [address] [place], [place] [address] Internal Medicine 09/06/22 Paula Reza MD 303 E [facility] 200 [place] [address] Assigned PCP 09/09/22 01/05/23 Esha Dewitt MD [address] [address] Assigned Gastroenterology Provider 09/23/22 Valdo Escamilla PA-C [address] [facility] [address] [place] [address] Assigned Neuroscience Provider 09/30/22 Nohelia Abarca PA-C 2450 [place] [address] Physician Pad Extractor Tender Gastroenterology 10/03/22 Heather Mosquera MD [address] [place] [address] Assigned PCP 01/06/23 Fawad [place] MD 909 [place] [address] Assigned Musculoskeletal Provider 04/27/23 06/25/23 documented as of this encounter
--- OUTSIDE RECORDS SUMMARY | 2023-09-21 08:32 | XMS_ITS | Encounter Summary ---
Author Organization [place] Address [address] [place] [address] Care Team Providers Care Operations Chief Name Role Phone Roopa Almonte MD Unavailable [phone] Maryse Burton PA-C Unavailable [phone] Roopa Almonte MD Unavailable [phone] Griffin Joshi MD Unavailable Rina Magallon RN Unavailable [phone] Paula Reza MD Primary Care Provider [phone] Roopa Almonte MD Unavailable [phone] Rosa Maria Love Unavailable [phone] Augustine Callaway MD Unavailable Paula Reza MD Unavailable Keerthi Miner APRN DELIVERY TABLE OPERATOR Unavailable [phone] Shahida Sutton APRN DELIVERY TABLE OPERATOR Unavailable Un available Porsha Michaels APRN DELIVERY TABLE OPERATOR Unavailable [phone] Paula Reza MD Unavailable Shahida Sutton APRN DELIVERY TABLE OPERATOR Unavailable Un available Daylin Ludwig Unavailable Laurel Velasquez MD Unavailable ParthDaylin hernandez Marquita [place]IV[place] Unavailable Paula Reza MD Unavailable Brando, Kim DUANE DELIVERY TABLE OPERATOR Unavailable [phone] Laurel Velasquez MD Unavailable Shahida Sutton WATERSHED ENGINEER DELIVERY TABLE OPERATOR Unavailable Un available Marilin Montaño DELIVERY TABLE OPERATOR Unavailable Esha Dewitt MD Unavailable [phone] Heather Mosquera MD Unavailable Paula Reza MD Unavailable Esha Dewitt MD Unavailable [phone] Valdo Escamilla PA-C Unavailable Nohelia Abarca PA-C Unavailable [phone] Heather Mosquera MD Unavailable [phone] Fawad York MD Unavailable Reason for Visit * Reason Onset Date Comments Call to schedule test 12/13/[address] scan Encounter Details Date Type Department Care Team (Late st Contact Info) Description 12/13/2021 Telephone [facility] Heart [place] 250[address] [facility] [address] [place] [phone] Candi Parada MD [address] [facility] [place] [address] Call to schedule test (Reschedule ct scan) [...] documented as of this encounter Care Teams Operations Chief Relationship Specialty Start Date End Date Paula Reza MD [address] [facility] 200 [place] [address] PCP - General Internal Medicine 08/05/21 Roopa Almonte MD [address] [facility] 200 [place] [address] Endocrinology, Diabetes, and Metabolism 01/19/21 Maryse Burton, PAAna MariaC 5[address] [place] [address] Physician Computer Meteorologist Dermatology 04/14/21 Roopa Almonte MD [address] [facility] 200 [place] [address] Hospitalist Endocrinology, Diabetes, and Metabolism 05/30/21 Griffin Joshi MD 6405 [facility] [address] [place] [address] Cardiovascular Disease 07/25/21 Rina Magallon, RN Lead Wine Steward/Stewardess 07/29/21 07/11/22 Roopa Almonte MD [address] 200 [place], [place] [address] Assigned Endocrinology Provider 09/10/21 Rosa Maria Love CHW Community Health Worker 10/06/21 07/11/22 [place] [address] [facility] 300 [place] [address] Assigned Musculoskeletal Provider 10/15/21 04/26/23 Paula Reza MD [address] [place] [address] Assigned PCP 10/22/21 12/23/21 Keerthi Miner APRN DELIVERY TABLE OPERATOR [address] [place] [address] Assigned Heart and Vascular Provider 10/08/21 02/10/22 Shahida Sutton APRN DELIVERY TABLE OPERATOR Assigned PCP 12/24/21 03/24/22 Porsha Michaels APRN DELIVERY TABLE OPERATOR [address] [place] [address] Assigned Heart and Vascular Provider 02/11/22 05/12/22 Paula Reza MD [address] [place] [address] Assigned PCP 03/25/22 04/07/22 Shahida Sutton APRN DELIVERY TABLE OPERATOR [address] [place] [place] [address] Assigned PCP 04/08/22 06/30/22 Daylin Ludwig, EP [facility] [address] [place] [address] Cardiac Rehabilitation Therapist 05/16/23 Laurel Velasquez MD [address] [place] [address] Assigned Heart and Vascular Provider 05/13/22 06/30/22 Daylin Ludwig, EP [facility] [address] [place] [address] Cardiac Rehabilitation Therapist 06/08/22 06/09/23 Paula Reza MD [address] [place], [place] [address] Assigned PCP 07/01/22 07/07/22 Porsha Michaels APRN DELIVERY TABLE OPERATOR [address] [place] [address] Assigned Heart and Vascular Provider 07/01/22 07/07/22 Laurel Velasquez MD [address] [place] [address] Assigned Heart and Vascular Provider 07/08/22 08/04/22 Shahida Sutton APRN DELIVERY TABLE OPERATOR Assigned PCP 07/08/22 09/08/22 Marilin Montaño, DELIVERY TABLE OPERATOR [address] [place] [address] Assigned Heart and Vascular Provider 08/05/22 Esha Dewitt MD [address] [place] [address] 36 [place], [place] [address] Gastroenterology 09/06/22 Heather Mosquera MD [address] [place] [address] Internal Medicine 09/06/22 Paula Reza MD [address] [place] [address] Assigned PCP 09/09/22 01/05/23 Esha Dewitt MD 420 [facility] 36 [place], [place] [address] Assigned Gastroenterology Provider 09/23/22 Valdo Escamilla PA-C [address] [facility] [address] [place] [address] Assigned Neuroscience Provider 09/30/22 Nohelia Abarca PA-C [address] [place] [address] Physician Computer Meteorologist Gastroenterology 10/03/22 Heather Mosquera MD [address] [place] [address] Assigned PCP 01/06/23 Fawad [place] MD 909 [place], [place] [address] Assigned Musculoskeletal Provider 04/27/23 06/25/23 documented as of this encounter
--- OUTSIDE RECORDS SUMMARY | 2023-09-21 08:32 | XMS_ITS | Encounter Summary ---
Author Organization [facility] Address [address] [place] [address] Care Team Providers Care Childcare Worker Name Role Phone HermanShahida APRN REWIND OPERATOR Primary Care Provi ford Unavailable Shahida Sutton APRN REWIND OPERATOR Unavailable Un available Carolynn Ramon RN Unavailable [phone] Anabela Barakat APRN REWIND OPERATOR Unavailable Roopa Almonte MD Unavailable [phone] Augustine Callaway MD Unavailable Maryse Burton PA-C Unavailable [phone] Roopa Almonte MD Unavailable [phone] Griffin Joshi MD Unavailable Rina Magallon RN Unavailable [phone] Paula Reza MD Primary Care Provider [phone] Griffin Joshi MD Unavailable Roopa Almonte MD Unavailable [phone] Basilio Morillo DO Unavailable [phone] Lydia Bernstein PA-C Unavailable Rosa Maria Love Unavailable Augustine Callaway MD Unavailable Paula Reza MD Unavailable Keerthi Miner APRN REWIND OPERATOR Unavailable Herman, Shahida Cummings DISBURSEMENT CLERK REWIND OPERATOR Unavailable Un available Porsha Michaels APRN REWIND OPERATOR Unavailable [phone] Paula Reza MD Unavailable Herman, Shahida Cummings APRN REWIND OPERATOR Unavailable Un available Daylin Ludwig EP Unavailable [phone] Laurel Velasquez MD Unavailable Fietedavid, Daylin Juárez EP Unavailable [phone] Paula Reza MD Unavailable Porsha Michaels APRN REWIND OPERATOR Unavailable [phone] Laurel Velasquez MD Unavailable [phone] Herman, Shahida Cummings APRN REWIND OPERATOR Unavailable Un available Marilin Montaño REWIND OPERATOR Unavailable Esha Dewitt MD Unavailable [phone] Heather Mosquera MD Unavailable [phone] Paula Reza MD Unavailable Esha Dewitt MD Unavailable [phone] Valdo Escamilla PA-C Unavailable + [phone] Nohelia Abarca PA-C Unavailable [phone] Heather Mosquera MD Unavailable [phone] Fawad York MD Unavailable [phone] Encounter Details Date Type Department Care Team (Late st Contact Info) Description 05/27/2021 MyC Medical Advice [facility] Anticoagulation [address] [address] Jessica Lemus RN Social History [...] COVID-19? 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 documented as of this encounter Plan of [...] documented as of this encounter Care Teams Childcare Worker Relationship Specialty Start Date End Date Shahida Sutton APRN REWIND OPERATOR PCP - General Nurse Practitioner 08/17/14 08/04/21 Paula Reza MD [address] [address] PCP - General Internal Medicine 08/05/21 Shahida Sutton APRN REWIND OPERATOR Assigned PCP 07/12/14 09/30/21 Carolynn Ramon RN Personal Advocate & Liaison (PAL) 12/17/18 08/07/21 Anabela Barakat APRN REWIND OPERATOR 1700 [place] [address] Assigned Heart and Vascular Provider 08/15/20 08/05/21 Roopa Almonte MD [address] [facility] 200 [place] [address] Endocrinology, Diabetes, and Metabolism 01/19/21 [place] [address] [facility] 300 [place] [address] Assigned Musculoskeletal Provider 02/06/21 09/16/21 Maryse Burton PA-C [address] [place] [address] Physician Machine Setup Operator Dermatology 04/14/21 Roopa Almonte MD [address] [facility] 200 [place] [address] Hospitalist Endocrinology, Diabetes, and Metabolism 05/30/21 Griffin Joshi MD [address] [facility] [address] [place] [address] Cardiovascular Disease 07/25/21 Rina Magallon, RN Lead Circular Sawyer Stone 07/29/21 07/11/22 Griffin Joshi MD [address] [facility] [address] [place] [address] Assigned Heart and Vascular Provider 08/06/21 10/07/21 Roopa Almonte MD [address] 200 [place] [address] Assigned Endocrinology Provider 09/10/21 [place] [address] [facility] [place] [address] Assigned Musculoskeletal Provider 09/17/21 10/14/21 Lydia Bernstein PA-C [address] [place] [address] Assigned PCP 10/01/21 10/21/21 Rosa Maria Love CHW Community Health Worker 10/06/21 07/11/22 [place] [address] [place] [address] Assigned Musculoskeletal Provider 10/15/21 04/26/23 Paula Reza MD [address] [facility] 200 [place] [address] Assigned PCP 10/22/21 12/23/21 Keerthi Miner APRN REWIND OPERATOR [address] [place] [address] Assigned Heart and Vascular Provider 10/08/21 02/10/22 Shahida Sutton APRN REWIND OPERATOR Assigned PCP 12/24/21 03/24/22 Porsha Michaels APRN REWIND OPERATOR [address] [place] [address] Assigned Heart and Vascular Provider 02/11/22 05/12/22 Paula Reza MD [address] [place] [address] Assigned PCP 03/25/22 04/07/22 Shahida Sutton APRN REWIND OPERATOR [address] [place] [address] Assigned PCP 04/08/22 06/30/22 Daylin Ludwig, EP [facility] [address] [place] [address] Cardiac Rehabilitation Therapist 05/16/23 Laurel Velasquez MD [address] [place] [address] Assigned Heart and Vascular Provider 05/13/22 06/30/22 Daylin Ludwig, MIKI [facility] [address] [place] [address] Cardiac Rehabilitation Therapist 06/08/22 06/09/23 Paula Reza MD [address] [place] [address] Assigned PCP 07/01/22 07/07/22 Porsha Michaels APRN REWIND OPERATOR [address] [place] [address] Assigned Heart and Vascular Provider 07/01/22 07/07/22 Laurel Velasquez MD [address] [place] [address] Assigned Heart and Vascular Provider 07/08/22 08/04/22 Shahida Sutton APRN REWIND OPERATOR Assigned PCP 07/08/22 09/08/22 Marilin Montaño, REWIND OPERATOR [address] [facility] [place] [address] Assigned Heart and Vascular Provider 08/05/22 Esha Dewitt MD [address] [address] MD Gastroenterology 09/06/22 Heather Mosquera MD [address] [place], [place] [address] Internal Medicine 09/06/22 Paula Reza MD [address] [facility] 200 [place], [place] [address] Assigned PCP 09/09/22 01/05/23 Esha Dewitt MD [address] [place] [address] Assigned Gastroenterology Provider 09/23/22 Valdo Escamilla PA-C [address] [facility] [address] [place] [address] Assigned Neuroscience Provider 09/30/22 Nohelia Abarca PA-C [address]50 [place] [address] Physician Machine Setup Operator Gastroenterology 10/03/22 Heather Mosquera MD [address] [place] [address] Assigned PCP 01/06/23 Fawad York MD 9 [place] [address] Assigned Musculoskeletal Provider 04/27/23 06/25/23 documented as of this encounter
--- OUTSIDE RECORDS SUMMARY | 2023-09-21 08:32 | XMS_ITS | Encounter Summary ---
Author Organization [facility] Address [address] [place] [address] Care Team Providers Care Senior Telecommunications Engineer Name Role Phone HermanShahida APRN CONSTRUCTION STONEMASON Primary Care Provi ford Unavailable Shahida Sutton APRN CONSTRUCTION STONEMASON Unavailable Un available Carolynn Ramon RN Unavailable [phone] Anabela Barakat APRN CONSTRUCTION STONEMASON Unavailable Roopa Almonte MD Unavailable [phone] Augustine Callaway MD Unavailable Maryse Burton PA-C Unavailable [phone] Roopa Almonte MD Unavailable [phone] Griffin Joshi MD Unavailable Rina Magallon RN Unavailable [phone] Paula Reza MD Primary Care Provider [phone] Griffin Joshi MD Unavailable Roopa Almonte MD Unavailable [phone] Basilio Morillo DO Unavailable [phone] Lydia Bernstein PA-C Unavailable Kate Rosa Maria CHW Unavailable Augustine Callaway MD Unavailable Paula Reza MD Unavailable Keerthi Miner APRN CONSTRUCTION STONEMASON Unavailable Herman, Shahida Cummings APRN CONSTRUCTION STONEMASON Unavailable Un available Porsha Michaels APRN CONSTRUCTION STONEMASON Unavailable [phone] Paula Reza MD Unavailable Herman, Shahida Cummings APRN CONSTRUCTION STONEMASON Unavailable Un available Daylin Ludwig EP Unavailable [phone] Laurel Velasquez MD Unavailable [phone] Fietedavid, Daylin Juárez EP Unavailable [phone] Paula Reza MD Unavailable Porsha Michaels APRN CONSTRUCTION STONEMASON Unavailable [phone] Laurel Velasquez MD Unavailable [phone] Herman, Shahida Cummings APRN CONSTRUCTION STONEMASON Unavailable Un available Marilin Montaño CONSTRUCTION STONEMASON Unavailable [phone] Esha Dewitt MD Unavailable [phone] Heather Mosquera MD Unavailable [phone] Paula Reza MD Unavailable Esha Dewitt MD Unavailable [phone] Valdo Escamilla PA-C Unavailable + [phone] Nohelia Abarca PA-C Unavailable [phone] Heather Mosquera MD Unavailable [phone] Fawad York MD Unavailable [phone] Reason for Visit * Reason Onset Date Comments Appointment 07/09/2021 Encounter Details Date Type Department Care Team (Late st Contact Info) Description 07/09/[address] [address] Shahida Sutton, INTRAVENOUS THERAPY NURSE CONSTRUCTION STONEMASON Appointment Social History Tobacco Use Types Packs/Day [...] CMA - 07/12/2021 6:59 AM CDT Sent [employer] message to pt will appointment time. Will [...] documented as of this encounter Care Teams Senior Telecommunications Engineer Relationship Specialty Start Date End Date Shahida Sutton APRN CONSTRUCTION STONEMASON PCP - General Nurse Practitioner 08/17/14 08/04/21 Paula Reza MD [address] [place], [place] [address] PCP - General Internal Medicine 08/05/21 Shahida Sutton APRN CONSTRUCTION STONEMASON Assigned PCP 07/12/14 09/30/21 Carolynn Ramon RN Personal Advocate & Liaison (PAL) 12/17/18 08/07/21 Anabela Barakat APRN CONSTRUCTION STONEMASON [address] [place] [address] Assigned Heart and Vascular Provider 08/15/20 08/05/21 Roopa Almonte MD [address] [facility] 200 [place] [address] Endocrinology, Diabetes, and Metabolism 01/19/21 [place] [address] [place] [address] Assigned Musculoskeletal Provider 02/06/21 09/16/21 Maryse Burton, PAAna MariaC [address] [place] [address] Physician Can Piler Dermatology 04/14/21 Roopa Almonte MD [address] [facility] 200 [place] [address] Hospitalist Endocrinology, Diabetes, and Metabolism 05/30/21 Griffin Joshi MD [address] [place] [address] Cardiovascular Disease 07/25/21 Rina Magallon, RN Lead Information Architect 07/29/21 07/11/22 Griffin Joshi MD [address] [place] [address] Assigned Heart and Vascular Provider 08/06/21 10/07/21 Roopa Almonte MD [address] [facility] 200 [place], [place] [address] Assigned Endocrinology Provider 09/10/21 [place] [address] [facility] [place] [address] Assigned Musculoskeletal Provider 09/17/21 10/14/21 Lydia Bernstein PA-C [address] [place], [place] [address] Assigned PCP 10/01/21 10/21/21 Rosa Maria Love CHW Community Health Worker 10/06/21 07/11/22 [place] [address] [place] [facility] 300 [place] [address] Assigned Musculoskeletal Provider 10/15/21 04/26/23 Paula Reza MD [address] [place] [address] Assigned PCP 10/22/21 12/23/21 Keerthi Miner APRN CONSTRUCTION STONEMASON [address] [place] [address] Assigned Heart and Vascular Provider 10/08/21 02/10/22 Shahida Sutton APRN CONSTRUCTION STONEMASON Assigned PCP 12/24/21 03/24/22 Porsha Michaels APRN CONSTRUCTION STONEMASON [address] [place] [address] Assigned Heart and Vascular Provider 02/11/22 05/12/22 Paula Reza MD [address] [place] [address] Assigned PCP 03/25/22 04/07/22 Shahida Sutton APRN CONSTRUCTION STONEMASON [address] [place] [address] Assigned PCP 04/08/22 06/30/22 Daylin Ludwig EP [facility] [address] [place] [address] Cardiac Rehabilitation Therapist 05/16/23 Laurel Velasquez MD [address] [place] [address] Assigned Heart and Vascular Provider 05/13/22 06/30/22 Daylin Ludwig EP [facility] [address] [place] [address] Cardiac Rehabilitation Therapist 06/08/22 06/09/23 Paula Reza MD [address] [facility] 200 [place], [place] [address] Assigned PCP 07/01/22 07/07/22 Porsha Michaels APRN CONSTRUCTION STONEMASON [address] [place] [address] Assigned Heart and Vascular Provider 07/01/22 07/07/22 Laurel Velasquez MD [address] [place] [address] Assigned Heart and Vascular Provider 07/08/22 08/04/22 Shahida Sutton APRN CONSTRUCTION STONEMASON Assigned PCP 07/08/22 09/08/22 Marilin Montaño, CONSTRUCTION STONEMASON [address] [place] [address] Assigned Heart and Vascular Provider 08/05/22 Esha Dewitt MD [address] [place] [address] 36 [place], [place] [address] Gastroenterology 09/06/22 Heather Mosquera MD [address] [place] [address] Internal Medicine 09/06/22 Paula Reza MD [address] [place] [address] Assigned PCP 09/09/22 01/05/23 Esha Dewitt MD 420 [facility] 36 [place] [address] Assigned Gastroenterology Provider 09/23/22 Valdo Escamilla PA-C [address] [facility] [address] [address] [place], [place] [address] Assigned Neuroscience Provider 09/30/22 Nohelia Abarca PA-C [address] [facility] [place] [address] Physician Can Piler Gastroenterology 10/03/22 Heather Mosquera MD [address] [facility] [address] [facility] 150 [place] [address] Assigned PCP 01/06/23 Fawad York MD [address] [place] [address] Assigned Musculoskeletal Provider 04/27/23 06/25/23 documented as of this encounter
--- OUTSIDE RECORDS SUMMARY | 2023-09-21 08:33 | XMS_ITS | Encounter Summary ---
Author Organization [facility] Address [address] [place] [address] Care Team Providers Care Watershed Coordinator Name Role Phone HermanShahida APRN HANDLE MAKER Primary Care Provi ford Unavailable Shahida Sutton APRN HANDLE MAKER Unavailable Un available Carolynn Ramon RN Unavailable [phone] Anabela Barakat APRN HANDLE MAKER Unavailable Fawad York MD Unavailable [phone] Roopa Almonte MD Unavailable [phone] Augustine Callaway MD Unavailable Maryse Burton PA-C Unavailable [phone] Marquita Starkey MD Unavailable [phone] Roopa Almonte MD Unavailable [phone] Griffin Joshi MD Unavailable Rina Magallon RN Unavailable [phone] Paula Reza MD Primary Care Provider [phone] Griffin Joshi MD Unavailable Roopa Almonte MD Unavailable [phone] Basilio Morillo DO Unavailable Lydia Bernstein PA-C Unavailable Rosa Maria Love Unavailable Augustine Callaway MD Unavailable Paula Reza MD Unavailable Keerthi Miner APRN HANDLE MAKER Unavailable [phone] Herman, Shahida Cummings CARBONATOR HANDLE MAKER Unavailable Un available Porsha Michaels APRN HANDLE MAKER Unavailable Paula Reza MD Unavailable Herman, Shahida Cummings APRN HANDLE MAKER Unavailable Un available Daylin Ludwig Unavailable Laurel Velasquez MD Unavailable Daylin Ludwig Unavailable Paula Reza MD Unavailable Porsha Michaels APRN HANDLE MAKER Unavailable Laurel Velasquez MD Unavailable Herman, Shahida Cummings APRN HANDLE MAKER Unavailable Un available Marilin Montaño HANDLE MAKER Unavailable Esha Dewitt MD Unavailable [phone] Heather Mosquera MD Unavailable Paula Reza MD Unavailable Esha Dewitt MD Unavailable [phone] Valdo Escamilla PA-C Unavailable Nohelia Abarca PA-C Unavailable [phone] Heather Mosquera MD Unavailable Fawad York MD Unavailable [phone] Encounter Details Date Type Department Care Team (Late st Contact Info) Description 01/04/2021 MyC Medical Advice [address] [phone] Asuncion Olson Social History Tobacco Use Types [...] as of this encounter Care Teams Watershed Coordinator Relationship Specialty Start Date End Date Shahida Sutton APRN HANDLE MAKER PCP - General Nurse Practitioner 08/17/14 08/04/21 Paula Reza MD [address] [facility] 200 [place] [address] PCP - General Internal Medicine 08/05/21 Shahida Sutton APRN HANDLE MAKER Assigned PCP 07/12/14 09/30/21 Carolynn Ramon, KASIE Personal Advocate & Liaison (PAL) 12/17/18 08/07/21 Anabela Barakat APRN HANDLE MAKER 1700 [place] [address] Assigned Heart and Vascular Provider 08/15/20 08/05/21 Fawad York MD [address] [place], [place] [address] Assigned Musculoskeletal Provider 12/05/20 02/05/21 Roopa Almonte MD [address] [facility] 200 [place], [place] [address] Endocrinology, Diabetes, and Metabolism 01/19/21 [place] [address] [facility] 300 [place] [address] Assigned Musculoskeletal Provider 02/06/21 09/16/21 Maryse Burton, PAAna MariaC 5[address] [place] [address] Physician Records Management Director Dermatology 04/14/21 Marquita Starkey MD [address] [place], [place] [address] Internal Medicine 05/06/21 05/06/21 Roopa Almonte MD [address] [place] [address] Hospitalist Endocrinology, Diabetes, and Metabolism 05/30/21 Griffin Joshi MD [address] [facility] [address] [place] [address] Cardiovascular Disease 07/25/21 Rina Magallon, RN Lead Career Development Manager 07/29/21 07/11/22 Griffin Joshi MD [address] [place] [address] Assigned Heart and Vascular Provider 08/06/21 10/07/21 Roopa Almonte MD [address] [place] [address] 200 [place] [address] Assigned Endocrinology Provider 09/10/21 [place] [address] [place] [address] Assigned Musculoskeletal Provider 09/17/21 10/14/21 Lydia Bernstein PA-C [address] [place] [address] Assigned PCP 10/01/21 10/21/21 Rosa Maria Love CHW Community Health Worker 10/06/21 07/11/22 [place] [address] [facility] 300 [place] [address] Assigned Musculoskeletal Provider 10/15/21 04/26/23 Paula Reza MD [address] [facility] 200 [place], [place] [address] Assigned PCP 10/22/21 12/23/21 Keerthi Miner CARBONATOR HANDLE MAKER [address] [place] [address] Assigned Heart and Vascular Provider 10/08/21 02/10/22 Shahida Sutton APRN HANDLE MAKER Assigned PCP 12/24/21 03/24/22 Porsha Michaels APRN HANDLE MAKER [address] [place] [address] Assigned Heart and Vascular Provider 02/11/22 05/12/22 Paula Reza MD [address] [facility] 200 [place] [address] Assigned PCP 03/25/22 04/07/22 Shahida Sutton CARBONATOR HANDLE MAKER [address] [place] [address] Assigned PCP 04/08/22 06/30/22 Daylin Ludwig, MIKI [facility] [address] [place] [address] Cardiac Rehabilitation Therapist 05/16/23 Laurel Velasquez MD [address] [place] [address] Assigned Heart and Vascular Provider 05/13/22 06/30/22 Daylin Ludwig, MIKI [facility] [address] [place] [place] [address] Cardiac Rehabilitation Therapist 06/08/22 06/09/23 Paula Reza MD [address] [place] [address] Assigned PCP 07/01/22 07/07/22 Porsha Michaels APRN HANDLE MAKER [address] [place] [address] Assigned Heart and Vascular Provider 07/01/22 07/07/22 Laurel Velasquez MD [address] [place] [address] Assigned Heart and Vascular Provider 07/08/22 08/04/22 Shahida Sutton APRN HANDLE MAKER Assigned PCP 07/08/22 09/08/22 Marilin Montaño HANDLE MAKER [address] [place] [address] Assigned Heart and Vascular Provider 08/05/22 Esha Dewitt MD [address] [place] [address] Gastroenterology 09/06/22 Heather Mosquera MD [address] [place] [address] Internal Medicine 09/06/22 Paula Reza MD [address] [place] [address] Assigned PCP 09/09/22 01/05/23 Esha Dewitt MD [address] [place] [address] Assigned Gastroenterology Provider 09/23/22 Valdo Escamilla PA-C 6363 [facility] 103 [place] [address] Assigned Neuroscience Provider 09/30/22 Nohelia Abarca PA-C 2450 [place] [address] Physician Records Management Director Gastroenterology 10/03/22 Heather Mosquera MD [address]45 [facility] 150 [place] [address] Assigned PCP 01/06/23 Fawad York MD 909 [place] [address] Assigned Musculoskeletal Provider 04/27/23 06/25/23 documented as of this encounter
--- OUTSIDE RECORDS SUMMARY | 2023-09-21 08:33 | XMS_ITS | Encounter Summary ---
Author Organization [facility] Address [address] [place] [address] Care Team Providers Care Process Design Engineer Name Role Phone HermanShahida APRN PUBLICATIONS MANAGER Primary Care Provi ford Unavailable Shahida Sutton APRN PUBLICATIONS MANAGER Unavailable Un available Carolynn Ramon RN Unavailable [phone] Anabela Barakat APRN PUBLICATIONS MANAGER Unavailable Fawad York MD Unavailable [phone] Roopa Almonte MD Unavailable [phone] Augustine Callaway MD Unavailable Maryse Burton PA-C Unavailable [phone] Marquita Starkey MD Unavailable [phone] Roopa Almonte MD Unavailable [phone] Griffin Joshi MD Unavailable Rina Magallon RN Unavailable [phone] Paula Reza MD Primary Care Provider [phone] Griffin Joshi MD Unavailable Roopa Almonte MD Unavailable [phone] Basilio Morillo DO Unavailable Lydia Bernstein PA-C Unavailable Rosa Maria Love Unavailable Augustine Callaway MD Unavailable Paula Reza MD Unavailable Keerthi Miner APRN PUBLICATIONS MANAGER Unavailable [phone] Herman, Shahida Cummings HAT AND CAP DRYING ROOM ATTENDANT PUBLICATIONS MANAGER Unavailable Un available Porsha Michaels APRN PUBLICATIONS MANAGER Unavailable Paula Reza MD Unavailable Herman, Shahida Cummings APRN PUBLICATIONS MANAGER Unavailable Un available Daylin Ludwig Unavailable Laurel Velasquez MD Unavailable Daylin Ludwig Unavailable Paula Reza MD Unavailable Porsha Michaels APRN PUBLICATIONS MANAGER Unavailable Laurel Velasquez MD Unavailable Herman, Shahida Cummings APRN PUBLICATIONS MANAGER Unavailable Un available Marilin Montaño PUBLICATIONS MANAGER Unavailable Esha Dewitt MD Unavailable Heather Mosquera MD Unavailable Paula Reza MD Unavailable Esha Dewitt MD Unavailable [phone] Valdo Escamilla PA-C Unavailable Nohelia Abarca PA-C Unavailable Heather Mosquera MD Unavailable Fawad York MD Unavailable Encounter Details Date Type Department Care Team (Late st Contact Info) Description 01/04/2021 MyC Medical Advice [address] [phone] Shahida Sutton APRN CNP Social History Tobacco [...] as of this encounter Care Teams Process Design Engineer Relationship Specialty Start Date End Date Shahida Sutton APRN CNP PCP - General Nurse Practitioner 08/17/14 08/04/21 Paula Reza MD [address] [facility] 200 [place] [address] PCP - General Internal Medicine 08/05/21 Shahida Sutton APRN PUBLICATIONS MANAGER Assigned PCP 07/12/14 09/30/21 Carolynn Ramon, KASIE Personal Advocate & Liaison (PAL) 12/17/18 08/07/21 Anabela Barakat, HAT AND CAP DRYING ROOM ATTENDANT PUBLICATIONS MANAGER 1700 [place] [address] Assigned Heart and Vascular Provider 08/15/20 08/05/21 Fawad York MD 9[address] [place], [place] [address] Assigned Musculoskeletal Provider 12/05/20 02/05/21 Roopa Almonte MD [address] [facility] 200 [place] [address] Endocrinology, Diabetes, and Metabolism 01/19/21 [place] [address] [facility] 300 [place] [address] Assigned Musculoskeletal Provider 02/06/21 09/16/21 Maryse Burton, PAAna MariaC [address] [place] [address] Physician Assistant Purchasing Manager Dermatology 04/14/21 Marquita Starkey MD [address] [place] [address] Internal Medicine 05/06/21 05/06/21 Roopa Almonte MD [address] [place] [address] Hospitalist Endocrinology, Diabetes, and Metabolism 05/30/21 Griffin Joshi MD [address] [facility] [address] [place] [address] Cardiovascular Disease 07/25/21 Rina Magallon, RN Lead Truck Driver Rubbish Collector 07/29/21 07/11/22 Griffin Joshi MD [address] [facility] [address] [place] [address] Assigned Heart and Vascular Provider 08/06/21 10/07/21 Roopa Almonte MD [address] [place] [address] 200 [place], [place] [address] Assigned Endocrinology Provider 09/10/21 [place] [address] [facility] [place] [address] Assigned Musculoskeletal Provider 09/17/21 10/14/21 Lydia Bernstein PA-C [address] [facility] 150 [place] [address] Assigned PCP 10/01/21 10/21/21 Rosa Maria Love CHW Community Health Worker 10/06/21 07/11/22 [place] [address] [address] [facility] 300 [place] [address] Assigned Musculoskeletal Provider 10/15/21 04/26/23 Paula Reza MD [address] [facility] 200 [place], [place] [address] Assigned PCP 10/22/21 12/23/21 Keerthi Miner HAT AND CAP DRYING ROOM ATTENDANT PUBLICATIONS MANAGER [address] [place] [address] Assigned Heart and Vascular Provider 10/08/21 02/10/22 Shahida Sutton, HAT AND CAP DRYING ROOM ATTENDANT PUBLICATIONS MANAGER Assigned PCP 12/24/21 03/24/22 Porsha Michaels HAT AND CAP DRYING ROOM ATTENDANT PUBLICATIONS MANAGER [address] [place] [address] Assigned Heart and Vascular Provider 02/11/22 05/12/22 Paula Reza MD [address] [facility] 200 [place] [address] Assigned PCP 03/25/22 04/07/22 Shahida Sutton HAT AND CAP DRYING ROOM ATTENDANT PUBLICATIONS MANAGER [address] [place] [address] Assigned PCP 04/08/22 06/30/22 Daylin Ludwig, MIKI [facility] [address] [place] [address] Cardiac Rehabilitation Therapist 05/16/23 Laurel Velasquez MD [address] [place] [address] Assigned Heart and Vascular Provider 05/13/22 06/30/22 Daylin Ludwig, MIKI [facility] [address] [place] [address] Cardiac Rehabilitation Therapist 06/08/22 06/09/23 Paula Reza MD [address] [place] [address] Assigned PCP 07/01/22 07/07/22 Porsha Michaels APRN PUBLICATIONS MANAGER [address] [place] [address] Assigned Heart and Vascular Provider 07/01/22 07/07/22 Laurel Velasquez MD [address] [place] [address] Assigned Heart and Vascular Provider 07/08/22 08/04/22 Shahida Sutton APRN PUBLICATIONS MANAGER Assigned PCP 07/08/22 09/08/22 Marilin Montaño PUBLICATIONS MANAGER [address] [place] [address] Assigned Heart and Vascular Provider 08/05/22 Esha Dewitt MD 420 [facility] 36 [place] [address] Gastroenterology 09/06/22 Heather Mosquera MD [address] [place] [address] Internal Medicine 09/06/22 Paula Reza MD [address] 200 [place] [address] Assigned PCP 09/09/22 01/05/23 Esha Dewitt MD 420 [facility] 36 [place] [address] Assigned Gastroenterology Provider 09/23/22 Valdo Escamilla PA-C 6363 [facility] 103 [place] [address] Assigned Neuroscience Provider 09/30/22 Nohelia Abarca PA-C 2450 [place] [address] Physician Assistant Purchasing Manager Gastroenterology 10/03/22 Heather Mosquera MD 6545 [facility] 150 [place] [address] Assigned PCP 01/06/23 Fawad York MD 909 [place] [address] Assigned Musculoskeletal Provider 04/27/23 06/25/23 documented as of this encounter
--- OUTSIDE RECORDS SUMMARY | 2023-09-21 08:33 | XMS_ITS | Encounter Summary ---
Author Organization [facility] Address [address] [place] [address] Care Team Providers Care Damper Worker Name Role Phone HermanShahida huerta APRN OXYGEN THERAPIST Primary Care Provi ford Unavailable Shahida Sutton APRN OXYGEN THERAPIST Unavailable Un available Carolynn Ramon RN Unavailable Anabela Barakat APRN OXYGEN THERAPIST Unavailable Nima France PA-C Unavailable [phone] Basilio Morillo DO Unavailable Fawad York MD Unavailable Roopa Almonte MD Unavailable Augustine Callaway MD Unavailable Maryse Burton PA-C Unavailable [phone] Marquita Starkey MD Unavailable [phone] Roopa Almonte MD Unavailable Griffin Joshi MD Unavailable Rina Magallon RN Unavailable [phone] Paula Reza MD Primary Care Provider [phone] Griffin Joshi MD Unavailable Roopa Almonte MD Unavailable Ilia Basilio Naik Unavailable Lydia Bernstein PA-C Unavailable Kate Rosa Maria CHW Unavailable Augustine Callaway MD Unavailable Paula Reza MD Unavailable Keerthi Miner APRN OXYGEN THERAPIST Unavailable Herman, Shahida Cummings APRN OXYGEN THERAPIST Unavailable Un available Porsha Michaels APRN OXYGEN THERAPIST Unavailable [phone] Paula Reza MD Unavailable Herman, Shahida Cummings APRN OXYGEN THERAPIST Unavailable Un available Daylin Ludwig Unavailable [phone] Laurel Velasquez MD Unavailable Daylin Ludwig Unavailable [phone] Paula Reza MD Unavailable Porsha Michaels APRN OXYGEN THERAPIST Unavailable [phone] Laurel Velasquez MD Unavailable Herman, Shahida Cummings APRN OXYGEN THERAPIST Unavailable Un available Marilin Montaño OXYGEN THERAPIST Unavailable [phone] Esha Dewitt MD Unavailable [phone] Heather Mosquera MD Unavailable Paula Reza MD Unavailable Esha Dewitt MD Unavailable [phone] Valdo Escamilla PA-C Unavailable [phone] Nohelia Abarca PA-C Unavailable [phone] Heather Mosquera MD Unavailable Fawad York MD [facility] [phone] Encounter Details Date Type Department Care Team (Late st Contact Info) Description 09/28/2020 MyC Medical Advice [address] [phone] Carolynn Ramon, KASIE Social History Tobacco Use [...] documented as of this encounter Care Teams Damper Worker Relationship Specialty Start Date End Date Shahida Sutton APRN OXYGEN THERAPIST PCP - General Nurse Practitioner 08/17/14 08/04/21 Paula Reza MD [address] [facility] 200 [place] [address] PCP - General Internal Medicine 08/05/21 Shahida Sutton, EARTH SCIENCE FACULTY MEMBER OXYGEN THERAPIST Assigned PCP 07/12/14 09/30/21 Carolynn Ramon, KASIE Personal Advocate & Liaison (PAL) 12/17/18 08/07/21 Anabela Barakat, EARTH SCIENCE FACULTY MEMBER OXYGEN THERAPIST 1700 [place] [address] Assigned Heart and Vascular Provider 08/15/20 08/05/21 Nima France PA-C [address] [facility] 450 [place] [address] Assigned Musculoskeletal Provider 08/22/20 11/13/20 [place] [address] [place] [address] Assigned Musculoskeletal Provider 11/14/20 12/04/20 Fawad York MD [address] [place], [place] [address] Assigned Musculoskeletal Provider 12/05/20 02/05/21 Roopa Almonte MD [address] [facility] 200 [place] [address] Endocrinology, Diabetes, and Metabolism 01/19/21 [place] [address] [facility] 300 [place] [address] Assigned Musculoskeletal Provider 02/06/21 09/16/21 Maryse Burton PA-C 5200 [place] [address] Physician Manager Retail Store Dermatology 04/14/21 Marquita Starkey MD [address] [facility] 200 [place] [address] Internal Medicine 05/06/21 05/06/21 Roopa Almonte MD [address] [facility] 200 [place] [address] Hospitalist Endocrinology, Diabetes, and Metabolism 05/30/21 Griffin Joshi MD [address] [place] [address] Cardiovascular Disease 07/25/21 Rina Magallon RN Lead Email Manager 07/29/21 07/11/22 Griffin Joshi MD [address] [place] [address] Assigned Heart and Vascular Provider 08/06/21 10/07/21 Roopa Almonte MD [address] [facility] 200 [place], [place] [address] Assigned Endocrinology Provider 09/10/21 [place] [address] [facility] [place] [address] Assigned Musculoskeletal Provider 09/17/21 10/14/21 Lydia Bernstein PA-C [address] [place] [address] Assigned PCP 10/01/21 10/21/21 Klarissa Lovesay, W Community Health Worker 10/06/21 07/11/22 [place] [address] [place] [address] Assigned Musculoskeletal Provider 10/15/21 04/26/23 Paula Reza MD [address] [place] [address] Assigned PCP 10/22/21 12/23/21 Keerthi Miner APRN OXYGEN THERAPIST [address] [place] [address] Assigned Heart and Vascular Provider 10/08/21 02/10/22 Shahida Sutton APRN OXYGEN THERAPIST Assigned PCP 12/24/21 03/24/22 Porsha Michaels APRN OXYGEN THERAPIST [address] [place] [address] Assigned Heart and Vascular Provider 02/11/22 05/12/22 Paula Reza MD [address] [place] [address] Assigned PCP 03/25/22 04/07/22 Shahida Sutton APRN OXYGEN THERAPIST [address] [place] [address] Assigned PCP 04/08/22 06/30/22 Daylin Ludwig EP [facility] [address] [place] [address] Cardiac Rehabilitation Therapist 05/16/23 Laurel Velasquez MD [address] [place] 108635 Assigned Heart and Vascular Provider 05/13/22 06/30/22 Daylin Ludwig EP [facility] [address] [place] [id number] Cardiac Rehabilitation Therapist 06/08/22 06/09/23 Paula Reza MD [address] [facility] 200 [place], [place] [address] Assigned PCP 07/01/22 07/07/22 Porsha Michaels APRN OXYGEN THERAPIST [address] [address] Assigned Heart and Vascular Provider 07/01/22 07/07/22 Laurel Velasquez MD [address] [place] [address] Assigned Heart and Vascular Provider 07/08/22 08/04/22 Shahida Sutton, EARTH SCIENCE FACULTY MEMBER OXYGEN THERAPIST Assigned PCP 07/08/22 09/08/22 Marilin Montaño, OXYGEN THERAPIST [address] [place] [address] Assigned Heart and Vascular Provider 08/05/22 Esha Dewitt MD [address] [place] [address] 36 [place], [place] [address] Gastroenterology 09/06/22 Heather Mosquera MD [address] [place] [id number] Internal Medicine 09/06/22 Paula Reza MD [address] [place] [address] Assigned PCP 09/09/22 01/05/23 Esha Dewitt MD 420 [facility] 36 [place], [place] [address] Assigned Gastroenterology Provider 09/23/22 Valdo Escamilla PA-C [address] [facility] [address] [place], [place] [address] Assigned Neuroscience Provider 09/30/22 Nohelia Abarca PA-C 2450 [place], [place] [address] Physician Manager Retail Store Gastroenterology 10/03/22 Heather Mosquera MD [address] [place] [id number] Assigned PCP 01/06/23 Fawad York MD [address] [place], [place] [address] Assigned Musculoskeletal Provider 04/27/23 06/25/23 documented as of this encounter
--- OUTSIDE RECORDS SUMMARY | 2023-09-21 08:33 | XMS_ITS | Encounter Summary ---
Author Organization [facility] Address [address] [place] [address] Care Team Providers Care Portable Power Tool Repairer Name Role Phone HermanShahida APRN LABORER POULTRY HATCHERY Primary Care Provi ford Unavailable Shahida Sutton APRN LABORER POULTRY HATCHERY Unavailable Un available Carolynn Ramon RN Unavailable [phone] Anabela Barakat APRN LABORER POULTRY HATCHERY Unavailable Fawad York MD Unavailable [phone] Roopa Almonte MD Unavailable [phone] Augustine Callaway MD Unavailable Maryse Burton PA-C Unavailable [phone] Marquita Starkey MD Unavailable [phone] Roopa Almonte MD Unavailable [phone] Griffin Joshi MD Unavailable Rina Magallon RN Unavailable [phone] Paula Reza MD Primary Care Provider [phone] Griffin Joshi MD Unavailable Roopa Almonte MD Unavailable [phone] Basilio Morillo DO Unavailable Lydia Bernstein PA-C Unavailable Rosa Maria Love Unavailable Augustine Callaway MD Unavailable Paula Reza MD Unavailable Keerthi Miner APRN LABORER POULTRY HATCHERY Unavailable [phone] Herman, Shahida Cummings SHELL GRADER LABORER POULTRY HATCHERY Unavailable Un available Porsha Michaels APRN LABORER POULTRY HATCHERY Unavailable Paula Reza MD Unavailable Herman, Shahida Cummings APRN LABORER POULTRY HATCHERY Unavailable Un available Daylin Ludwig Unavailable Laurel Velasquez MD Unavailable Daylin Ludwig Unavailable Paula Reza MD Unavailable Porsha Michaels APRN LABORER POULTRY HATCHERY Unavailable Laurel Velasquez MD Unavailable Herman, Shahida Cummings APRN LABORER POULTRY HATCHERY Unavailable Un available Marilin Montaño LABORER POULTRY HATCHERY Unavailable Esha Dewitt MD Unavailable [phone] Heather Mosquera MD Unavailable Paula Reza MD Unavailable Esha Dewitt MD Unavailable [phone] Valdo Escamilla PA-C Unavailable Nohelia Abarca PA-C Unavailable Heather Mosquera MD Unavailable Fawad York MD Unavailable Encounter Details Date Type Department Care Team (Late st Contact Info) Description 12/21/2020 MyC Medical Advice [address] [phone] Monica Suarez Social History Tobacco [...] documented as of this encounter Care Teams Portable Power Tool Repairer Relationship Specialty Start Date End Date Shahida Sutton APRN LABORER POULTRY HATCHERY PCP - General Nurse Practitioner 08/17/14 08/04/21 Paula Reza MD [address] [facility] 200 [place] [address] PCP - General Internal Medicine 08/05/21 Shahida Sutton APRN LABORER POULTRY HATCHERY Assigned PCP 07/12/14 09/30/21 Carolynn Ramon, KASIE Personal Advocate & Liaison (PAL) 12/17/18 08/07/21 Anabela Barakat APRN LABORER POULTRY HATCHERY 1700 [place] [address] Assigned Heart and Vascular Provider 08/15/20 08/05/21 Fawad York MD 9[address] [place], [place] [address] Assigned Musculoskeletal Provider 12/05/20 02/05/21 Roopa Almonte MD [address] [place] [address] Endocrinology, Diabetes, and Metabolism 01/19/21 [place] [address] [facility] 300 [place] [address] Assigned Musculoskeletal Provider 02/06/21 09/16/21 Maryse Burton, PAAna MariaC [address] [place] [address] Physician Label Pinker Dermatology 04/14/21 Marquita Starkey MD [address] [place] [address] Internal Medicine 05/06/21 05/06/21 Roopa Almonte MD [address] [place] [address] Hospitalist Endocrinology, Diabetes, and Metabolism 05/30/21 Griffin Joshi MD [address] [facility] [address] [place] [address] Cardiovascular Disease 07/25/21 Rina Magallon, RN Lead Charter Driver 07/29/21 07/11/22 Griffin Joshi MD [address] [place] [place] [address] Assigned Heart and Vascular Provider 08/06/21 10/07/21 Roopa Almonte MD [address] [place] [address] 200 [place], [place] [address] Assigned Endocrinology Provider 09/10/21 [place] [address] [place] [address] Assigned Musculoskeletal Provider 09/17/21 10/14/21 Lydia Bernstein PA-C [address] [facility] [address] [place] [address] Assigned PCP 10/01/21 10/21/21 Rosa Maria Love CHW Community Health Worker 10/06/21 07/11/22 [place] [address] [facility] 300 [place] [address] Assigned Musculoskeletal Provider 10/15/21 04/26/23 Paula Reza MD [address] [place], [place] [address] Assigned PCP 10/22/21 12/23/21 Keerthi Miner APRN LABORER POULTRY HATCHERY [address] [place] [address] Assigned Heart and Vascular Provider 10/08/21 02/10/22 Shahida Sutton APRN LABORER POULTRY HATCHERY Assigned PCP 12/24/21 03/24/22 Porsha Michaels APRN LABORER POULTRY HATCHERY [address] [place] [address] Assigned Heart and Vascular Provider 02/11/22 05/12/22 Paula Reza MD [address] [facility] 200 [place] [address] Assigned PCP 03/25/22 04/07/22 Shahida Sutton SHELL GRADER LABORER POULTRY HATCHERY [address] [place] [address] Assigned PCP 04/08/22 06/30/22 Daylin Ludwig, MIKI [facility] [address] [place] [address] Cardiac Rehabilitation Therapist 05/16/23 Laurel Velasquez MD [address] [place] [address] Assigned Heart and Vascular Provider 05/13/22 06/30/22 Daylin Ludwig, MIKI [facility] [address] [place] [address] Cardiac Rehabilitation Therapist 06/08/22 06/09/23 Paula Reza MD [address] [place] [address] Assigned PCP 07/01/22 07/07/22 Porsha Michaels APRN LABORER POULTRY HATCHERY [address] [place] [address] Assigned Heart and Vascular Provider 07/01/22 07/07/22 Laurel Velasquez MD [address] [place] [address] Assigned Heart and Vascular Provider 07/08/22 08/04/22 Shahida Sutton APRN LABORER POULTRY HATCHERY Assigned PCP 07/08/22 09/08/22 Marilin Montaño, LABORER POULTRY HATCHERY [address] [place] [address] Assigned Heart and Vascular Provider 08/05/22 Esha Dewitt MD [address] [place] [address] Gastroenterology 09/06/22 Heather Mosquera MD [address] [place] [address] Internal Medicine 09/06/22 Paula Reza MD [address] [place] [address] Assigned PCP 09/09/22 01/05/23 Esha Dewitt MD [address] [place] [address] Assigned Gastroenterology Provider 09/23/22 Valdo Escamilla PA-C [address] [facility] 103 [place] [address] Assigned Neuroscience Provider 09/30/22 Nohelia Abarca PA-C 2450 [place] [address] Physician Label Pinker Gastroenterology 10/03/22 Heather Mosquera MD 6545 [facility] 150 [place] [address] Assigned PCP 01/06/23 Fawad York MD 909 [place] [address] Assigned Musculoskeletal Provider 04/27/23 06/25/23 documented as of this encounter
--- OUTSIDE RECORDS SUMMARY | 2023-09-21 08:33 | XMS_ITS | Encounter Summary ---
Author Organization [place] Address [address] [place] [address] Care Team Providers Care Windows Systems Admin Name Role Phone HermanShahida APRN EMBROIDERY FINISHER Primary Care Provi ford Unavailable Shahida Sutton APRN EMBROIDERY FINISHER Unavailable Un available Carolynn Ramon RN Unavailable [phone] Anabela Barakat APRN EMBROIDERY FINISHER Unavailable Fawad York MD Unavailable [phone] Roopa Almonte MD Unavailable [phone] Augustine Callaway MD Unavailable Maryse Burton PA-C Unavailable [phone] Marquita Starkey MD Unavailable [phone] Roopa Almonte MD Unavailable [phone] Griffin Joshi MD Unavailable Rina Magallon RN Unavailable [phone] Paula Reza MD Primary Care Provider [phone] Griffin Joshi MD Unavailable Roopa Almonte MD Unavailable [phone] Basilio Morillo DO Unavailable Lydia Bernstein-C Unavailable Rosa Maria Love Unavailable Augustine Callaway MD Unavailable Paula Reza MD Unavailable Keerthi Miner APRN EMBROIDERY FINISHER Unavailable [phone] Herman, Shahida Cummings APRN EMBROIDERY FINISHER Unavailable Un available Porsha Michaels APRN EMBROIDERY FINISHER Unavailable Paula Rzea MD Unavailable Herman, Shahida Cummings APRN EMBROIDERY FINISHER Unavailable Un available Daylin Ludwig Unavailable Laurel Velasquez MD Unavailable Daylin Ludwig Unavailable Paula Reza MD Unavailable Porsha Michaels APRN EMBROIDERY FINISHER Unavailable Laurel Velasquez MD Unavailable Herman, Shahida Cummings APRN EMBROIDERY FINISHER Unavailable Un available Marilin Montaño EMBROIDERY FINISHER Unavailable Esha Dewitt MD Unavailable [phone] Heather Mosquera MD Unavailable Paula Reza MD Unavailable Esha Dewitt MD Unavailable [phone] Valdo Escamilla-C Unavailable Nohelia Abarca PA-C Unavailable Heather Mosquera MD Unavailable Fawad York MD Unavailable Encounter Details Date Type Department Care Team (Late st Contact Info) Description 12/14/[address] [address] Shahida Sutton APRN CNP Social [...] orthopedist regarding his shoulder should be in [facility] and seeing PT with [facility] Phone Number patient can be reached at: Home number on file [phone] (home) Best Time: Can we leave a [...] documented as of this encounter Care Teams Windows Systems Admin Relationship Specialty Start Date End Date Shahida Sutton APRN EMBROIDERY FINISHER PCP - General Nurse Practitioner 08/17/14 08/04/21 Paula Reza MD [address] [place], [place] [address] PCP - General Internal Medicine 08/05/21 Shahida Sutton APRN EMBROIDERY FINISHER Assigned PCP 07/12/14 09/30/21 Carolynn Ramon, KASIE Personal Advocate & Liaison (PAL) 12/17/18 08/07/21 Anabela Barakat APRN EMBROIDERY FINISHER 1700 [place] [address] Assigned Heart and Vascular Provider 08/15/20 08/05/21 Fawad York MD [address] [place], [place] [address] Assigned Musculoskeletal Provider 12/05/20 02/05/21 Roopa Almonte MD [address] [place] [address] Endocrinology, Diabetes, and Metabolism 01/19/21 [place] [address] [facility] 300 [place] [address] Assigned Musculoskeletal Provider 02/06/21 09/16/21 Maryse Burton PA-C [address] [facility] [place] [address] Physician It Business Process Architect Dermatology 04/14/21 Marquita Starkey MD [address] [facility] 200 [place], [place] [address] Internal Medicine 05/06/21 05/06/21 Roopa Almonte MD [address] [facility] 200 [place] [address] Hospitalist Endocrinology, Diabetes, and Metabolism 05/30/21 Griffin Joshi MD [address] [facility] [address] [place] [address] Cardiovascular Disease 07/25/21 Rina Magallon, RN Lead Teletypesetter Monitor 07/29/21 07/11/22 Griffin Joshi MD [address] [facility] [address] [place] [address] Assigned Heart and Vascular Provider 08/06/21 10/07/21 Roopa Almonte MD [address] [facility] 200 [place], [place] [address] Assigned Endocrinology Provider 09/10/21 [place] [address] [address] [place] [address] Assigned Musculoskeletal Provider 09/17/21 10/14/21 Lydia Bernstein PA-C [address] [place] [address] Assigned PCP 10/01/21 10/21/21 Rosa Maria Love Cristina Community Health Worker 10/06/21 07/11/22 [place] [address] [place] [address] Assigned Musculoskeletal Provider 10/15/21 04/26/23 Paula Reza MD [address] [place] [address] Assigned PCP 10/22/21 12/23/21 Keerthi Miner APRN EMBROIDERY FINISHER [address] [place] [address] Assigned Heart and Vascular Provider 10/08/21 02/10/22 Shahida Sutton APRN EMBROIDERY FINISHER Assigned PCP 12/24/21 03/24/22 Porsha Michaels APRN EMBROIDERY FINISHER [address] [place] [address] Assigned Heart and Vascular Provider 02/11/22 05/12/22 Paula Reza MD [address] 200 [place] [address] Assigned PCP 03/25/22 04/07/22 Shahida Sutton APRN EMBROIDERY FINISHER [address] [place] [address] Assigned PCP 04/08/22 06/30/22 Daylin Ludwig, MIKI [facility] [address] [place] [address] Cardiac Rehabilitation Therapist 05/16/23 Laurel Velasquez MD [address] [place] [address] Assigned Heart and Vascular Provider 05/13/22 06/30/22 Daylin Ludwig, MIKI [facility] [address] [place] [address] Cardiac Rehabilitation Therapist 06/08/22 06/09/23 Paula Reza MD [address] [facility] 200 [place] [address] Assigned PCP 07/01/22 07/07/22 Porsha Michaels APRN EMBROIDERY FINISHER [address] [place] [address] Assigned Heart and Vascular Provider 07/01/22 07/07/22 Laurel Velasquez MD [address] [place] [address] Assigned Heart and Vascular Provider 07/08/22 08/04/22 Shahida Sutton APRN EMBROIDERY FINISHER Assigned PCP 07/08/22 09/08/22 Marilin Montaño, EMBROIDERY FINISHER [address] [place] [address] Assigned Heart and Vascular Provider 08/05/22 Esha Dewitt MD [address] [address] Gastroenterology 09/06/22 Heather Mosquera MD [address] [facility] [address] [place] [address] Internal Medicine 09/06/22 Paula Reza MD [address] [facility] 200 [place] [address] Assigned PCP 09/09/22 01/05/23 Esha Dewitt MD [address] [place] [address] Assigned Gastroenterology Provider 09/23/22 Valdo Escamilla PA-C 6[address] [facility] [address] [place] [address] Assigned Neuroscience Provider 09/30/22 Nohelia Abarca PA-C 2450 [place] [address] Physician It Business Process Architect Gastroenterology 10/03/22 Heather Mosquera MD [address] [facility] [address] [facility] 150 [place] [address] Assigned PCP 01/06/23 Fawad York MD [address] [place] [address] Assigned Musculoskeletal Provider 04/27/23 06/25/23 documented as of this encounter
--- OUTSIDE RECORDS SUMMARY | 2023-09-21 08:33 | XMS_ITS | Encounter Summary ---
Author Organization [facility] Address [address] [place] [address] Care Team Providers Care Automotive Project Engineer Name Role Phone HermanShahida huerta APRN GOLF BALL INSPECTOR Primary Care Provi ford Unavailable Shahida Sutton APRN GOLF BALL INSPECTOR Unavailable Un available Carolynn Ramon RN Unavailable Anabela Barakat APRN GOLF BALL INSPECTOR Unavailable Nima France PA-C Unavailable [phone] Basilio Morillo DO Unavailable Fawad York MD Unavailable [phone] Roopa Almonte MD Unavailable Augustine Callaway MD Unavailable Maryse Burton PA-C Unavailable [phone] Marquita Starkey MD Unavailable [phone] Roopa Almonte MD Unavailable Griffin Joshi MD Unavailable Rina Magallon RN Unavailable [phone] Paula Reza MD Primary Care Provider [phone] Griffin Joshi MD Unavailable Roopa Almonte MD Unavailable Ilia Basilio Naik Unavailable Lydia Bernstein PA-C Unavailable Kate Rosa Maria CHW Unavailable Augustine Callaway MD Unavailable Paula Reza MD Unavailable Keerthi Miner APRN GOLF BALL INSPECTOR Unavailable Herman, Shahida Cummings APRN GOLF BALL INSPECTOR Unavailable Un available Porsha Michaels APRN GOLF BALL INSPECTOR Unavailable [phone] Paula Reza MD Unavailable Herman, Shahida Cummings APRN GOLF BALL INSPECTOR Unavailable Un available Daylin Ludwig Unavailable [phone] Laurel Velasquez MD Unavailable Daylin Ludwig Unavailable [phone] Paula Reza MD Unavailable Porsha Michaels APRN GOLF BALL INSPECTOR Unavailable [phone] Laurel Velasquez MD Unavailable Herman, Shahida Cummings APRN GOLF BALL INSPECTOR Unavailable Un available Marilin Montaño GOLF BALL INSPECTOR Unavailable [phone] Esha Dewitt MD Unavailable [phone] Heather Mosquera MD Unavailable Paula Reza MD Unavailable Esha Dewitt MD Unavailable [phone] Valdo Escamilla PA-C Unavailable [phone] Nohelia Abarca PA-C Unavailable [phone] Heather Mosquera MD Unavailable Fawad York MD [facility] Encounter Details Date Type Department Care Team (Late st Contact Info) Description 11/09/2020 MyC Medical Advice [address] [phone] Hiral Curran, STRUCTURAL LAYOUT WORKER Social History Tobacco Use Types Packs/Day Years [...] as of this encounter Care Teams Automotive Project Engineer Relationship Specialty Start Date End Date Shahida Sutton APRN GOLF BALL INSPECTOR PCP - General Nurse Practitioner 08/17/14 08/04/21 Paula Reza MD [address] [place] [address] PCP - General Internal Medicine 08/05/21 Shahida Sutton, SYSTEMS SECURITY ANALYST GOLF BALL INSPECTOR Assigned PCP 07/12/14 09/30/21 Carolynn Ramon, KASEI Personal Advocate & Liaison (PAL) 12/17/18 08/07/21 Anabela Barakat, SYSTEMS SECURITY ANALYST GOLF BALL INSPECTOR 1700 [place] [address] Assigned Heart and Vascular Provider 08/15/20 08/05/21 Nima France PA-C 6545 [facility] [address] [place] [address] Assigned Musculoskeletal Provider 08/22/20 11/13/20 [place] [address] [facility] [place], [place] [address] Assigned Musculoskeletal Provider 11/14/20 12/04/20 Fawad York MD [address] [place], [place] [address] Assigned Musculoskeletal Provider 12/05/20 02/05/21 Roopa Almonte MD [address] [facility] [address] 200 [place] [address] Endocrinology, Diabetes, and Metabolism 01/19/21 [place] [address] [place] [address] Assigned Musculoskeletal Provider 02/06/21 09/16/21 Maryse Burton PA-C [address] [facility] [address] Physician Aluminum Siding Installer Dermatology 04/14/21 Marquita Starkey MD [address] [facility] [address] [place], [place] [address] Internal Medicine 05/06/21 05/06/21 Roopa Almonte MD [address] [facility] 200 [place], [place] [address] Hospitalist Endocrinology, Diabetes, and Metabolism 05/30/21 Griffin Joshi MD [address] [place] [address] Cardiovascular Disease 07/25/21 Rina Magallon, RN Lead Asset Protection Specialist 07/29/21 07/11/22 Griffin Joshi MD [address] [place] [address] Assigned Heart and Vascular Provider 08/06/21 10/07/21 Roopa Almonte MD [address] [place], [place] [address] Assigned Endocrinology Provider 09/10/21 [place] [address] [facility] [place] [address] Assigned Musculoskeletal Provider 09/17/21 10/14/21 Lydia Bernstein PA-C [address] [place] [address] Assigned PCP 10/01/21 10/21/21 Rosa Maria Love CHW Community Health Worker 10/06/21 07/11/22 [place] [address] [place] [address] Assigned Musculoskeletal Provider 10/15/21 04/26/23 Paula Reza MD [address] [place], [place] [address] Assigned PCP 10/22/21 12/23/21 Keerthi Miner APRN GOLF BALL INSPECTOR [address] [place] [address] Assigned Heart and Vascular Provider 10/08/21 02/10/22 Shahida Sutton APRN GOLF BALL INSPECTOR Assigned PCP 12/24/21 03/24/22 Porsha Michaels APRN GOLF BALL INSPECTOR [address] [place] [address] Assigned Heart and Vascular Provider 02/11/22 05/12/22 Paula Reza MD [address] [place] [address] Assigned PCP 03/25/22 04/07/22 Shahida Sutton APRN GOLF BALL INSPECTOR [address] [place] [address] Assigned PCP 04/08/22 06/30/22 Daylin Ludwig EP [facility] [address] [place] [address] Cardiac Rehabilitation Therapist 05/16/23 Laurel Velasquez MD [address] [place] [address] Assigned Heart and Vascular Provider 05/13/22 06/30/22 Daylin Ludwig EP [facility] [address] [place] [address] Cardiac Rehabilitation Therapist 06/08/22 06/09/23 Paula Reza MD [address] [facility] 200 [place], [place] [address] Assigned PCP 07/01/22 07/07/22 Porsha Michaels APRN GOLF BALL INSPECTOR [address] [place] [address] Assigned Heart and Vascular Provider 07/01/22 07/07/22 Laurel Velasquez MD [address] [place] [address] Assigned Heart and Vascular Provider 07/08/22 08/04/22 Shahida Sutton APRN GOLF BALL INSPECTOR Assigned PCP 07/08/22 09/08/22 Marilin Montaño, GOLF BALL INSPECTOR [address] [place] [address] Assigned Heart and Vascular Provider 08/05/22 Esha Dewitt MD [address] [address] Gastroenterology 09/06/22 Heather Mosquera MD 6545 [facility] 150 [place] [address] Internal Medicine 09/06/22 Paula Reza MD [address] [place] [address] Assigned PCP 09/09/22 01/05/23 Esha Dewitt MD [address] [place] [address] Assigned Gastroenterology Provider 09/23/22 Valdo Escamilla PA-C 6363 [facility] 103 [place] [address] Assigned Neuroscience Provider 09/30/22 Nohelia Abarca PA-C 2450 [place] [address] Physician Aluminum Siding Installer Gastroenterology 10/03/22 Heather Mosquera MD 6545 [facility] 150 [place] [address] Assigned PCP 01/06/23 Fawad York MD [address]09 [place], [place] [address] Assigned Musculoskeletal Provider 04/27/23 06/25/23 documented as of this encounter
--- OUTSIDE RECORDS SUMMARY | 2023-09-21 08:33 | XMS_ITS | Encounter Summary ---
Author Organization [facility] Address [address] [place] [address] Care Team Providers Care Spool Sander Name Role Phone HermanShahida APRN SHIRT CLOSER Primary Care Provi ford Unavailable Shahida Sutton APRN SHIRT CLOSER Unavailable Un available Carolynn Ramon RN Unavailable [phone] Anabela Barakat APRN SHIRT CLOSER Unavailable Fawad York MD Unavailable [phone] Roopa Almonte MD Unavailable [phone] Augustine Callaway MD Unavailable Maryse Burton PA-C Unavailable [phone] Marquita Starkey MD Unavailable [phone] Roopa Almonte MD Unavailable [phone] Griffin Joshi MD Unavailable Rina Magallon RN Unavailable [phone] Paula Reza MD Primary Care Provider [phone] Griffin Joshi MD Unavailable Roopa Almonte MD Unavailable [phone] Basilio Morillo DO Unavailable Lydia Bernstein PA-C Unavailable Rosa Maria Love Unavailable Augustine Callaway MD Unavailable Paula Reza MD Unavailable Keerthi Miner APRN SHIRT CLOSER Unavailable [phone] Herman, Shahida Cummings APRN SHIRT CLOSER Unavailable Un available Porsha Michaels APRN SHIRT CLOSER Unavailable Paula Reza MD Unavailable Herman, Shahida Cummings APRN SHIRT CLOSER Unavailable Un available Daylin Ludwig Unavailable Laurel Velasquez MD Unavailable Daylin Ludwig Unavailable Paula Reza MD Unavailable Porsha Michaels APRN SHIRT CLOSER Unavailable Laurel Velasquez MD Unavailable Herman, Shahida Cummings APRN SHIRT CLOSER Unavailable Un available Marilin Montaño SHIRT CLOSER Unavailable Esha Dewitt MD Unavailable [phone] Heather Mosquera MD Unavailable Paula Reza MD Unavailable Esha Dewitt MD Unavailable [phone] Valdo Escamilla PA-C Unavailable Nohelia Abarca-C Unavailable [phone] Heather Mosquera MD Unavailable Fawad York MD Unavailable Reason for Visit * Reason Onset Date Comments Patient Request for Note/Letter 01/10/2021 KASIE MONTGOMERY Encounter Details Date Type Department Care Team (Late st Contact Info) Description 01/10/2021 MyC Medical Advice [address] [address] Shahida Sutton APRN SHIRT CLOSER Patient Request for Note/Letter (KASIE MONTGOMERY ) [...] COVID-19? No / Unsure 01/11/2021 9:34 AM PETAL CUTTER documented as of this encounter Miscellaneous Notes * Telephone Encounter - Carolynn Ramon RN - 01/10/2021 1:50 PM PETAL CUTTER RN received call from patient - unable to see letter in my chart from pcp on 01/10/2021 RN will attempt to resend letter and see if patient is able to see letter, advised that he will need to quill picking machine operator or we can fax Patient states this is a problem on your end RN advised she is able to see letter and should be viewable Nathalia Watson Nurse, PAL (Patient Advocate Liason) [facility] [phone] L CUTTER * Telephone Encounter - Carolynn Ramon RN - 01/10/2021 12:33 PM PETAL CUTTER See my chart Nathalia Watson Nurse, ULISES (Patient Advocate Liason) [facility] [phone] L CUTTER documented in this encounter Plan of Treatment [...] documented as of this encounter Care Teams Spool Sander Relationship Specialty Start Date End Date Shahida Sutton APRN SHIRT CLOSER PCP - General Nurse Practitioner 08/17/14 08/04/21 Paula Reza MD [address] [place] [address] PCP - General Internal Medicine 08/05/21 Shahida Sutton APRN SHIRT CLOSER Assigned PCP 07/12/14 09/30/21 Carolynn Ramon RN Personal Advocate & Liaison (PAL) 12/17/18 08/07/21 Anabela Barakat APRN SHIRT CLOSER 1700 [place] [address] Assigned Heart and Vascular Provider 08/15/20 08/05/21 Fawad York MD [address] [place] [address] Assigned Musculoskeletal Provider 12/05/20 02/05/21 Roopa Almonte MD [address] [address] Endocrinology, Diabetes, and Metabolism 01/19/21 [place] [address] [facility] 300 [place] [address] Assigned Musculoskeletal Provider 02/06/21 09/16/21 Maryse Burton PA-C [address] [place] [address] Physician Occupational Hygienist Dermatology 04/14/21 Marquita Starkey MD [address] [facility] 200 [place] [address] Internal Medicine 05/06/21 05/06/21 Roopa Almonte MD [address] [facility] 200 [place] [address] Hospitalist Endocrinology, Diabetes, and Metabolism 05/30/21 Griffin Joshi MD [address] [facility] [address] [place] [address] Cardiovascular Disease 07/25/21 Rina Magallon, RN Lead Tire Vulcanizer 07/29/21 07/11/22 Griffin Joshi MD [address] [facility] [address] [place] [address] Assigned Heart and Vascular Provider 08/06/21 10/07/21 Roopa Almonte MD [address] [facility] 200 [place] [address] Assigned Endocrinology Provider 09/10/21 [place] [address] [facility] [place] [address] Assigned Musculoskeletal Provider 09/17/21 10/14/21 Lydia Bernstein PA-C [address] [place] [address] Assigned PCP 10/01/21 10/21/21 Rosa Maria Love W Community Health Worker 10/06/21 07/11/22 [place] [address] [place] [address] Assigned Musculoskeletal Provider 10/15/21 04/26/23 Paula Reza MD [address] [place] [address] Assigned PCP 10/22/21 12/23/21 Keerthi Miner APRN SHIRT CLOSER [address] [place] [address] Assigned Heart and Vascular Provider 10/08/21 02/10/22 Shahida Sutton, FIELD ASSESSOR SHIRT CLOSER Assigned PCP 12/24/21 03/24/22 Porsha Michaels APRN SHIRT CLOSER [address] [place] [address] Assigned Heart and Vascular Provider 02/11/22 05/12/22 Paula Reza MD [address] [place] [address] Assigned PCP 03/25/22 04/07/22 Shahida Sutton APRN SHIRT CLOSER [address] [place] [address] Assigned PCP 04/08/22 06/30/22 Daylin Ludwig, MIKI [facility] [address] [place] [address] Cardiac Rehabilitation Therapist 05/16/23 Laurel Velasquez MD [address] [place] [address] Assigned Heart and Vascular Provider 05/13/22 06/30/22 Daylin Ludwig, EP [facility] [address] [place] [address] Cardiac Rehabilitation Therapist 06/08/22 06/09/23 Paula Reza MD [address] [address] Assigned PCP 07/01/22 07/07/22 Porsha Michaels APRN SHIRT CLOSER [address] [place] [address] Assigned Heart and Vascular Provider 07/01/22 07/07/22 Laurel Velasquez MD [address] [place] [address] Assigned Heart and Vascular Provider 07/08/22 08/04/22 Shahida Sutton APRN SHIRT CLOSER Assigned PCP 07/08/22 09/08/22 Marilin Montaño SHIRT CLOSER [address] [place] [address] Assigned Heart and Vascular Provider 08/05/22 Esha Dewitt MD 420 [facility] 36 [place] [address] Gastroenterology 09/06/22 Heather Mosquera MD [address] [place] [address] Internal Medicine 09/06/22 Paula Reza MD [address] [facility] 200 [place], [place] [address] Assigned PCP 09/09/22 01/05/23 Esha Dewitt MD 420 [facility] 36 [place], [place] [address] Assigned Gastroenterology Provider 09/23/22 Valdo Escamilla PA-C [address] [facility] [address] [place] [address] Assigned Neuroscience Provider 09/30/22 Nohelia Abarca PA-C [address] [facility] [place] [address] Physician Occupational Hygienist Gastroenterology 10/03/22 Heather Mosquera MD [address] [place] [address] Assigned PCP 01/06/23 Fawad York MD 909 [place] [address] Assigned Musculoskeletal Provider 04/27/23 06/25/23 documented as of this encounter
--- OUTSIDE RECORDS SUMMARY | 2023-09-21 08:33 | XMS_ITS | Encounter Summary ---
Author Organization [facility] Address [address] [place] [address] Care Team Providers Care Plant Maintenance Supervisor Name Role Phone HermanShahida APRN FIELD ARTILLERY BASIC Primary Care Provi ford Unavailable Shahida Sutton APRN FIELD ARTILLERY BASIC Unavailable Un available Carolynn Ramon RN Unavailable [phone] Anabela Barakat APRN FIELD ARTILLERY BASIC Unavailable Roopa Almonte MD Unavailable [phone] Augustine Callaway MD Unavailable Maryse Burton PA-C Unavailable [phone] Marquita Starkey MD Unavailable [phone] Roopa Almonte MD Unavailable [phone] Griffin Joshi MD Unavailable Rina Magallon RN Unavailable [phone] Paula Reza MD Primary Care Provider [phone] Griffin Joshi MD Unavailable Roopa Almonte MD Unavailable [phone] Basilio Morillo DO Unavailable [phone] Lydia BernsteinC Unavailable Rosa Maria Love Unavailable Augustine Callaway MD Unavailable Paula Reza MD Unavailable Keerthi Miner APRN FIELD ARTILLERY BASIC Unavailable Herman, Shahida Cummings APRN FIELD ARTILLERY BASIC Unavailable Un available Porsha Michaels APRN FIELD ARTILLERY BASIC Unavailable [phone] Paula Reza MD Unavailable Herman, Shahida Cummings APRN FIELD ARTILLERY BASIC Unavailable Un available Daylin Ludwig Unavailable [phone] Laurel Velasquez MD Unavailable Daylin Ludwig Unavailable [phone] Paula Reza MD Unavailable Porsha Michaels APRN FIELD ARTILLERY BASIC Unavailable [phone] Laurel Velasquez MD Unavailable Herman, Shahida Cummings APRN FIELD ARTILLERY BASIC Unavailable Un available Marilin Montaño FIELD ARTILLERY BASIC Unavailable Esha Dewitt MD Unavailable [phone] Heather Mosquera MD Unavailable [phone] Paula Reza MD Unavailable Esha Dewitt MD Unavailable [phone] Valdo Escamilla PA-C Unavailable [phone] Nohelia Abarca-C Unavailable [phone] Heather Mosquera MD Unavailable Fawad York MD Unavailable [phone] Reason for Visit * Reason Comments Medication Refill Encounter Details Date Type Department Care Team (Late st Contact Info) Description 02/21/[address] [place] [address] Shahida Sutton APRN FIELD ARTILLERY BASIC Medication Refill Social History Tobacco Use Types [...] COVID-19? No / Unsure 02/07/2021 7:55 AM KIL[facility] HEAD HOUSE OPERATOR documented as of this encounter Miscellaneous Notes * Telephone Encounter - Marilin Cuevas RN - 02/21/2021 2:10 PM KILN HEAD HOUSE OPERATOR Routing refill request to provider for review/approval because: Drug not on the [facility] refill protocol Marilin Cuevas RN [facility] -- Triage Nurse HEAD HOUSE OPERATOR documented in this encounter Plan of [...] as of this encounter Care Teams Plant Maintenance Supervisor Relationship Specialty Start Date End Date Shahida Sutton APRN FIELD ARTILLERY BASIC PCP - General Nurse Practitioner 08/17/14 08/04/21 Paula Reza MD [address] [facility] 200 [place] [address] PCP - General Internal Medicine 08/05/21 Shahida Sutton, BODY SHOP FLOORPERSON FIELD ARTILLERY BASIC Assigned PCP 07/12/14 09/30/21 Carolynn Ramon RN Personal Advocate & Liaison (PAL) 12/17/18 08/07/21 Anabela Barakat APRN FIELD ARTILLERY BASIC [address] [place] [address] Assigned Heart and Vascular Provider 08/15/20 08/05/21 Roopa Almonte MD [address] [address] Endocrinology, Diabetes, and Metabolism 01/19/21 [place] [address] [address] Assigned Musculoskeletal Provider 02/06/21 09/16/21 Maryse Burton, PA-C [address] [place] [address] Physician Evaporator Repairer Dermatology 04/14/21 Marquita Starkey MD [address] [address] Internal Medicine 05/06/21 05/06/21 Roopa Almonte MD [address] [address] Hospitalist Endocrinology, Diabetes, and Metabolism 05/30/21 Griffin Joshi MD [address] [facility] [address] [place] [address] Cardiovascular Disease 07/25/21 Rina Magallon, RN Lead Seafood Fisherman 07/29/21 07/11/22 Griffin Joshi MD [address] [place] [address] Assigned Heart and Vascular Provider 08/06/21 10/07/21 Roopa Almonte MD [address] [place] [address] 200 [place] [address] Assigned Endocrinology Provider 09/10/21 [place] [address] [facility] [place] [address] Assigned Musculoskeletal Provider 09/17/21 10/14/21 Lydia Bernstein PA-C [address] [facility] [address] [place] [address] Assigned PCP 10/01/21 10/21/21 Rosa Maria Love CHW Community Health Worker 10/06/21 07/11/22 [place] [address] [address] [facility] 300 [place] [address] Assigned Musculoskeletal Provider 10/15/21 04/26/23 Paula Reza MD [address] [place] [address] Assigned PCP 10/22/21 12/23/21 Keerthi Miner APRN FIELD ARTILLERY BASIC [address] [place] [address] Assigned Heart and Vascular Provider 10/08/21 02/10/22 Shahida Sutton APRN FIELD ARTILLERY BASIC Assigned PCP 12/24/21 03/24/22 Porsha Michaels APRN FIELD ARTILLERY BASIC [address] [place] [address] Assigned Heart and Vascular Provider 02/11/22 05/12/22 Paula Reza MD [address] [place] [address] Assigned PCP 03/25/22 04/07/22 Shahida Sutton APRN FIELD ARTILLERY BASIC [address] [place] [address] Assigned PCP 04/08/22 06/30/22 Daylin Ludwig, EP [facility] [address] [place] [address] Cardiac Rehabilitation Therapist 05/16/23 Laurel Velasquez MD [address] [place] [address] Assigned Heart and Vascular Provider 05/13/22 06/30/22 Daylin Ludwig, EP [facility] [address] [place] [address] Cardiac Rehabilitation Therapist 06/08/22 06/09/23 Paula Reza MD [address] [place], [place] [address] Assigned PCP 07/01/22 07/07/22 Porsha Michaels APRN FIELD ARTILLERY BASIC [address] [place] [address] Assigned Heart and Vascular Provider 07/01/22 07/07/22 Laurel Velasquez MD [address] [place] [address] Assigned Heart and Vascular Provider 07/08/22 08/04/22 Shahida Sutton APRN FIELD ARTILLERY BASIC Assigned PCP 07/08/22 09/08/22 Marilin Montaño, FIELD ARTILLERY BASIC [address] [place] [address] Assigned Heart and Vascular Provider 08/05/22 Esha Dewitt MD [address] [place] [address] 36 [place], [place] [address] Gastroenterology 09/06/22 Heather Mosquera MD [address] [place] [address] Internal Medicine 09/06/22 Paula Reza MD [address] [place] [address] Assigned PCP 09/09/22 01/05/23 Esha Dewitt MD [address] [facility] 36 [place] [address] Assigned Gastroenterology Provider 09/23/22 Valdo Escamilla PA-C [address] [facility] [address] [place] [address] Assigned Neuroscience Provider 09/30/22 Nohelia Abarca PA-C [address] [place] [address] Physician Evaporator Repairer Gastroenterology 10/03/22 Heather Mosquera MD [address] [place] [address] Assigned PCP 01/06/23 Fawad York MD 909 [place] [address] Assigned Musculoskeletal Provider 04/27/23 06/25/23 documented as of this encounter
--- OUTSIDE RECORDS SUMMARY | 2023-09-21 08:33 | XMS_ITS | Encounter Summary ---
Author Organization [facility] Address [address] [place] [address] Care Team Providers Care Wind Energy Systems Installer Name Role Phone HermanShahida APRN JV BASEBALL COACH Primary Care Provi fodr Unavailable Shahida Sutton APRN JV BASEBALL COACH Unavailable Un available Carolynn Ramon RN Unavailable [phone] Anabela Barakat APRN JV BASEBALL COACH Unavailable Fawad York MD Unavailable [phone] Roopa Almonte MD Unavailable [phone] Augustine Callaway MD Unavailable Maryse Burton PA-C Unavailable [phone] Marquita Starkey MD Unavailable [phone] Roopa Almonte MD Unavailable [phone] Griffin Joshi MD Unavailable Rina Magallon RN Unavailable [phone] Paula Reza MD Primary Care Provider [phone] Griffin Joshi MD Unavailable Roopa Almonte MD Unavailable [phone] Basilio Morillo DO Unavailable Lydia Bernstein PA-C Unavailable Rosa Maria Love Unavailable Augustine Callaway MD Unavailable Paula Reza MD Unavailable Keerthi Miner APRN JV BASEBALL COACH Unavailable [phone] Herman, Shahida Cummings SHEARER PRINTED CIRCUIT BOARDS JV BASEBALL COACH Unavailable Un available Porsha Michaels APRN JV BASEBALL COACH Unavailable Paula Reza MD Unavailable Herman, Shahida Cummings APRN JV BASEBALL COACH Unavailable Un available Daylin Ludwig Unavailable Laurel Velasquez MD Unavailable Daylin Ludwig Unavailable Paula Reza MD Unavailable Porsha Michaels APRN JV BASEBALL COACH Unavailable Laurel Velasquez MD Unavailable Herman, Shahida Cummings APRN JV BASEBALL COACH Unavailable Un available Marilin Montaño JV BASEBALL COACH Unavailable Esha Dewitt MD Unavailable [phone] Heather Mosquera MD Unavailable Paula Reza MD Unavailable Esha Dewitt MD Unavailable [phone] Valdo Escamilla PA-C Unavailable Nohelia Abarca PA-C Unavailable [phone] Heather Mosquera MD Unavailable Fawad York MD Unavailable [phone] Encounter Details Date Type Department Care Team (Late st Contact Info) Description 12/28/2020 MyC Medical Advice [address] [id number] Carolynn Ramon RN Social History Tobacco Use [...] documented as of this encounter Care Teams Wind Energy Systems Installer Relationship Specialty Start Date End Date Shahida Sutton APRN JV BASEBALL COACH PCP - General Nurse Practitioner 08/17/14 08/04/21 Paula Reza MD [address] [facility] 200 [place] [address] PCP - General Internal Medicine 08/05/21 Shahida Sutton, SHEARER PRINTED CIRCUIT BOARDS JV BASEBALL COACH Assigned PCP 07/12/14 09/30/21 Carolynn Ramon RN Personal Advocate & Liaison (PAL) 12/17/18 08/07/21 Anabela Barakat APRN JV BASEBALL COACH 1700 [place] [address] Assigned Heart and Vascular Provider 08/15/20 08/05/21 Fawad York MD 909 [place] [address] Assigned Musculoskeletal Provider 12/05/20 02/05/21 Roopa Almonte MD [address] [facility] [address] [address] Endocrinology, Diabetes, and Metabolism 01/19/21 [place] [address] [address] Assigned Musculoskeletal Provider 02/06/21 09/16/21 Maryse Burton, PA-C [address] [place] [address] Physician Film Processor Dermatology 04/14/21 Marquita Starkey MD [address] [facility] 200 [place] [address] Internal Medicine 05/06/21 05/06/21 Roopa Almonte MD [address] [facility] 200 [place] [address] Hospitalist Endocrinology, Diabetes, and Metabolism 05/30/21 Griffin Joshi MD [address] [facility] [address] [place] [address] Cardiovascular Disease 07/25/21 Rina Magallon, RN Lead Fruit Dryer 07/29/21 07/11/22 Griffin Joshi MD [address] [place] [address] Assigned Heart and Vascular Provider 08/06/21 10/07/21 Roopa Almonte MD [address] [facility] 200 [place], [place] [address] Assigned Endocrinology Provider 09/10/21 [place] [address] [facility] [place] [address] Assigned Musculoskeletal Provider 09/17/21 10/14/21 Lydia Bernstein PA-C [address] [facility] 150 [place] [address] Assigned PCP 10/01/21 10/21/21 Rosa Maria Love CHW Community Health Worker 10/06/21 07/11/22 [place] [address] [facility] 300 [place] [address] Assigned Musculoskeletal Provider 10/15/21 04/26/23 Paula Reza MD [address] [place] [address] Assigned PCP 10/22/21 12/23/21 Keerthi Miner SHEARER PRINTED CIRCUIT BOARDS JV BASEBALL COACH [address] [place] [address] Assigned Heart and Vascular Provider 10/08/21 02/10/22 Shahida Sutton SHEARER PRINTED CIRCUIT BOARDS JV BASEBALL COACH Assigned PCP 12/24/21 03/24/22 Porsha Michaels SHEARER PRINTED CIRCUIT BOARDS JV BASEBALL COACH [address] [place] [address] Assigned Heart and Vascular Provider 02/11/22 05/12/22 Paula Reza MD [address] [place] [address] Assigned PCP 03/25/22 04/07/22 Shahida Sutton APRN JV BASEBALL COACH [address] [place] [address] Assigned PCP 04/08/22 06/30/22 Daylin Ludwig, EP [facility] [address] [place] [address] Cardiac Rehabilitation Therapist 05/16/23 Laurel Velasquez MD [address] [place] [address] Assigned Heart and Vascular Provider 05/13/22 06/30/22 Daylin Ludwig, EP [facility] [address] [place] [address] Cardiac Rehabilitation Therapist 06/08/22 06/09/23 Paula Reza MD [address] [place] [address] Assigned PCP 07/01/22 07/07/22 Porsha Michaels APRN JV BASEBALL COACH [address] [place] [address] Assigned Heart and Vascular Provider 07/01/22 07/07/22 Laurel Velasquez MD [address] [place] [address] Assigned Heart and Vascular Provider 07/08/22 08/04/22 Shahida Sutton APRN JV BASEBALL COACH Assigned PCP 07/08/22 09/08/22 Marilin Montaño, JV BASEBALL COACH [address] [place] [address] Assigned Heart and Vascular Provider 08/05/22 Esha Dewitt MD [address] [place] [address] 36 [place], [place] [address] Gastroenterology 09/06/22 Heather Mosquera MD [address] [place] [address] Internal Medicine 09/06/22 Paula Reza MD [address] [place] [address] Assigned PCP 09/09/22 01/05/23 Esha Dewitt MD [address] [facility] 36 [place], [place] [address] Assigned Gastroenterology Provider 09/23/22 Valdo Escamilla PA-C [address] [facility] [address] [place], [place] [address] Assigned Neuroscience Provider 09/30/22 Nohelia Abarca PA-C [address] [place], [place] [address] Physician Film Processor Gastroenterology 10/03/22 Heather Mosquera MD [address] [facility] 150 [place], [place] [address] Assigned PCP 01/06/23 Fawad York MD 9[address] [place], [place] [address] Assigned Musculoskeletal Provider 04/27/23 06/25/23 documented as of this encounter
--- OUTSIDE RECORDS SUMMARY | 2023-09-21 08:33 | XMS_ITS | Encounter Summary ---
Author Organization [facility] Address [address] [place] [address] Care Team Providers Care Canvas Products Sales Representative Name Role Phone HermanShahida APRN PACK MASTER Primary Care Provi ford Unavailable Shahida Sutton APRN PACK MASTER Unavailable Un available Carolynn Ramon RN Unavailable [phone] Anabela Barakat APRN PACK MASTER Unavailable Basilio Morillo DO Unavailable Fawad York MD Unavailable [phone] Roopa Almonte MD Unavailable [phone] Augustine Callaway MD Unavailable Maryse Burton PA-C Unavailable [phone] Marquita Starkey MD Unavailable [phone] Roopa Almonte MD Unavailable [phone] Griffin Joshi MD Unavailable Rina Magallon RN Unavailable [phone] Paula Reza MD Primary Care Provider [phone] Griffin Joshi MD Unavailable Roopa Almonte MD Unavailable [phone] IliaBasilio DO Unavailable Lydia Bernstein PA-C Unavailable KateRosa Maria RACHELL Unavailable [phone] Augustine Callaway MD Unavailable Paula Reza MD Unavailable Keerthi Miner APRN PACK MASTER Unavailable [phone] Herman, Shahida Cummings APRN PACK MASTER Unavailable Un available Porsha Michaels APRN PACK MASTER Unavailable [phone] Paula Reza MD Unavailable Herman, Shahida Cummings APRN PACK MASTER Unavailable Un available Daylin Ludwig Unavailable [phone] Laurel Velasquez MD Unavailable [phone] FiDaylin sullivan EP Unavailable [phone] Paula Reza MD Unavailable Porsha Michaels APRN PACK MASTER Unavailable [phone] Laurel Velasquez MD Unavailable Herman, Shahida Cummings APRN PACK MASTER Unavailable Un available Marilin Montaño PACK MASTER Unavailable [phone] Esha Dewitt MD Unavailable [phone] Heather Mosquera MD Unavailable [phone] Paula Reza MD Unavailable Esha Dewitt MD Unavailable [phone] Valdo Escamilla PA-C Unavailable [phone] Nohelia Abarca-C Unavailable [phone] Heather Mosquera MD Unavailable [phone] Fawad York MD Unavailable Reason for Visit * Reason Comments Medication Refill Encounter Details Date Type Department Care Team (Late st Contact Info) Description 11/17/[address] [address] Shahida Sutton APRN PACK MASTER Medication Refill Social History Tobacco Use Types [...] documented as of this encounter Care Teams Canvas Products Sales Representative Relationship Specialty Start Date End Date Shahida Sutton APRN PACK MASTER PCP - General Nurse Practitioner 08/17/14 08/04/21 Paula Reza MD [address] [place] [address] PCP - General Internal Medicine 08/05/21 Shahida Sutton APRN PACK MASTER Assigned PCP 07/12/14 09/30/21 Carolynn Ramon RN Personal Advocate & Liaison (PAL) 12/17/18 08/07/21 Anabela Barakat APRN PACK MASTER 1700 [place] [address] Assigned Heart and Vascular Provider 08/15/20 08/05/21 [place] [address] [place] [address] Assigned Musculoskeletal Provider 11/14/20 12/04/20 Fawad York MD 9 [place] [address] Assigned Musculoskeletal Provider 12/05/20 02/05/21 Roopa Almonte MD [address] [place] [address] Endocrinology, Diabetes, and Metabolism 01/19/21 [place] [address] [place], [place] [address] Assigned Musculoskeletal Provider 02/06/21 09/16/21 Maryse Burton PA-C [address] [facility] [place] [address] Physician Web Content Director Dermatology 04/14/21 Marquita Starkey MD [address] [facility] 200 [place] [address] Internal Medicine 05/06/21 05/06/21 Roopa Almonte MD [address] [facility] 200 [place] [address] Hospitalist Endocrinology, Diabetes, and Metabolism 05/30/21 Griffin Johsi MD [address] [facility] [address] [place] [address] Cardiovascular Disease 07/25/21 Rina Magallon, RN Lead Wood Turning Lathe Operator 07/29/21 07/11/22 Griffin Joshi MD [address] [facility] [address] [place] [address] Assigned Heart and Vascular Provider 08/06/21 10/07/21 Roopa Almonte MD [address] [place], [place] [address] Assigned Endocrinology Provider 09/10/21 [place] [address] [facility] [place] [address] Assigned Musculoskeletal Provider 09/17/21 10/14/21 Lydia Bernstein PA-C [address] [place] [address] Assigned PCP 10/01/21 10/21/21 Rosa Maria Love CHW Community Health Worker 10/06/21 07/11/22 [place] [address] [place] [address] Assigned Musculoskeletal Provider 10/15/21 04/26/23 Paula Reza MD [address] 200 [place] [address] Assigned PCP 10/22/21 12/23/21 Keerthi Miner APRN PACK MASTER [address] [place] [address] Assigned Heart and Vascular Provider 10/08/21 02/10/22 Shahida Sutton APRN PACK MASTER Assigned PCP 12/24/21 03/24/22 Porsha Michaels APRN PACK MASTER [address] [place] [place] [address] Assigned Heart and Vascular Provider 02/11/22 05/12/22 Paula Reza MD [address] [place] [address] Assigned PCP 03/25/22 04/07/22 Shahida Sutton APRN PACK MASTER [address] [place] [address] Assigned PCP 04/08/22 06/30/22 Daylin Ludwig, EP [facility] [address] [place] [address] Cardiac Rehabilitation Therapist 05/16/23 Laurel Velasquez MD [address] [place] [place] [address] Assigned Heart and Vascular Provider 05/13/22 06/30/22 Daylin Ludwig, MIKI [facility] [address] [place] [address] Cardiac Rehabilitation Therapist 06/08/22 06/09/23 Paula Reza MD [address] [facility] 200 [place] [address] Assigned PCP 07/01/22 07/07/22 Porsha Michaels APRN PACK MASTER [address] [place] [address] Assigned Heart and Vascular Provider 07/01/22 07/07/22 Laurel Velasquez MD [address] [place] [address] Assigned Heart and Vascular Provider 07/08/22 08/04/22 Shahida Sutton APRN PACK MASTER Assigned PCP 07/08/22 09/08/22 Marilin Montaño, PACK MASTER [address] [address] Assigned Heart and Vascular Provider 08/05/22 Esha Dewitt MD 420 [facility] 36 [place] [address] Gastroenterology 09/06/22 Heather Mosquera MD [address] [place] [address] Internal Medicine 09/06/22 Paula Reza MD [address] [place], [place] [address] Assigned PCP 09/09/22 01/05/23 Esha Dewitt MD [address] [address] Assigned Gastroenterology Provider 09/23/22 Valdo Escamilla PA-C [address] [facility] [address] [place], [place] [address] Assigned Neuroscience Provider 09/30/22 Nohelia Abarca PA-C [address] [place], [place] [address] Physician Web Content Director Gastroenterology 10/03/22 Heather Mosquera MD [address] [place] [address] Assigned PCP 01/06/23 Fawad York MD 909 [place], [place] [address] Assigned Musculoskeletal Provider 04/27/23 06/25/23 documented as of this encounter
--- OUTSIDE RECORDS SUMMARY | 2023-09-21 08:33 | XMS_ITS | Encounter Summary ---
Author Organization [place] Address [address] [place] [address] Care Team Providers Care Station Superintendent Name Role Phone HermanShahida APRN ACCOUNTS PAYABLES CLERK Primary Care Provi ford Unavailable Shahida Sutton APRN ACCOUNTS PAYABLES CLERK Unavailable Un available Carolynn Ramon RN Unavailable [phone] Anabela Barakat APRN ACCOUNTS PAYABLES CLERK Unavailable Basilio Morillo DO Unavailable Fawad York MD Unavailable [phone] Roopa Almonte MD Unavailable [phone] Augustine Callaway MD Unavailable Maryse Burton PA-C Unavailable [phone] Marquita Starkey MD Unavailable [phone] Roopa Almonte MD Unavailable [phone] Griffin Joshi MD Unavailable Rina Magallon RN Unavailable [phone] Paula Reza MD Primary Care Provider [phone] Griffin Joshi MD Unavailable Roopa Almonte MD Unavailable [phone] IliaBasilio DO Unavailable Lydia Bernstein PA-C Unavailable KateRosa Maria RACHELL Unavailable [phone] Augustine Callaway MD Unavailable Paula Reza MD Unavailable Keerthi Miner APRN ACCOUNTS PAYABLES CLERK Unavailable [phone] Herman, Shahida Cummings APRN ACCOUNTS PAYABLES CLERK Unavailable Un available Porsha Michaels APRN ACCOUNTS PAYABLES CLERK Unavailable [phone] Paula Reza MD Unavailable Herman, Shahida Cummings APRN ACCOUNTS PAYABLES CLERK Unavailable Un available Daylin Ludwig Unavailable [phone] Laurel Velasquez MD Unavailable [phone] FiDaylin sullivan EP Unavailable [phone] Paula Reza MD Unavailable Porsha Michaels APRN ACCOUNTS PAYABLES CLERK Unavailable [phone] Laurel Velasquez MD Unavailable Herman, Shahida Cummings APRN ACCOUNTS PAYABLES CLERK Unavailable Un available Marilin Montaño ACCOUNTS PAYABLES CLERK Unavailable [phone] Esha Dewitt MD Unavailable [phone] Heather Mosquera MD Unavailable [phone] Paula Reza MD Unavailable Esha Dewitt MD Unavailable [phone] Valdo Escamilla PA-C Unavailable [phone] Nohelia Abarca-C Unavailable [phone] Heather Mosquera MD Unavailable [phone] Fawad York MD Unavailable Reason for Visit * Reason Comments Medication Refill Encounter Details Date Type Department Care Team (Late st Contact Info) Description 11/23/[address] [address] Shahida Sutton APRN CNP Medication [...] documented as of this encounter Care Teams Station Superintendent Relationship Specialty Start Date End Date Shahida Sutton APRN CNP PCP - General Nurse Practitioner 08/17/14 08/04/21 Paula Reza MD [address] [facility] 200 [place] [address] PCP - General Internal Medicine 08/05/21 Shahida Sutton, NURSES' REGISTRY DIRECTOR ACCOUNTS PAYABLES CLERK Assigned PCP 07/12/14 09/30/21 Carolynn Ramon, KASIE Personal Advocate & Liaison (PAL) 12/17/18 08/07/21 Anabela Barakat APRN ACCOUNTS PAYABLES CLERK 1700 [place] [address] Assigned Heart and Vascular Provider 08/15/20 08/05/21 [place] [address] [place] [address] Assigned Musculoskeletal Provider 11/14/20 12/04/20 Fawad York MD [address] [place], [place] [address] Assigned Musculoskeletal Provider 12/05/20 02/05/21 Roopa Almonte MD [address] [facility] 200 [place] [address] Endocrinology, Diabetes, and Metabolism 01/19/21 [place] [address] [facility] 300 [place] [address] Assigned Musculoskeletal Provider 02/06/21 09/16/21 Maryse Burton PA-C 5200 [place] [address] Physician Showroom Sales Assistant Dermatology 04/14/21 Marquita Starkey MD [address] [facility] 200 [place] [address] Internal Medicine 05/06/21 05/06/21 Roopa Almonte MD [address] [facility] 200 [place] [address] Hospitalist Endocrinology, Diabetes, and Metabolism 05/30/21 Griffin Joshi MD [address] [place] [address] Cardiovascular Disease 07/25/21 Rina Magallon RN Lead Slabber 07/29/21 07/11/22 Griffin Joshi MD [address] [place] [address] Assigned Heart and Vascular Provider 08/06/21 10/07/21 Roopa Almonte MD [address] [place] [address] 200 [place], [place] [address] Assigned Endocrinology Provider 09/10/21 [place] [address] [facility] [place] [address]24949 Assigned Musculoskeletal Provider 09/17/21 10/14/21 Lydia Bernstein PA-C [address] [place] [address] Assigned PCP 10/01/21 10/21/21 Rosa Maria Love CHW Community Health Worker 10/06/21 07/11/22 [place] [address] [place] [address] Assigned Musculoskeletal Provider 10/15/21 04/26/23 Paula Reza MD [address] [place] [address] Assigned PCP 10/22/21 12/23/21 Keerthi Miner APRN ACCOUNTS PAYABLES CLERK [address] [place] [id number] Assigned Heart and Vascular Provider 10/08/21 02/10/22 Shahida Sutton APRN ACCOUNTS PAYABLES CLERK Assigned PCP 12/24/21 03/24/22 Porsha Michaels APRN ACCOUNTS PAYABLES CLERK [address] [place] [address] Assigned Heart and Vascular Provider 02/11/22 05/12/22 Paula Reza MD [address] 200 [place] [address] Assigned PCP 03/25/22 04/07/22 Shahida Sutton APRN ACCOUNTS PAYABLES CLERK [address] [place] [address] Assigned PCP 04/08/22 06/30/[address] [facility] [address] [place] [address] Cardiac Rehabilitation Therapist 05/16/23 Laurel Velasquez MD [address] [place] [address] Assigned Heart and Vascular Provider 05/13/22 06/30/[address] [facility] [address] [place] [address] Cardiac Rehabilitation Therapist 06/08/22 06/09/23 Paula Reza MD [address] [place] [address] Assigned PCP 07/01/22 07/07/22 Porsha Michaels APRN ACCOUNTS PAYABLES CLERK [address] [place] [address] Assigned Heart and Vascular Provider 07/01/22 07/07/22 Laurel Velasquez MD [address] [place] [address] Assigned Heart and Vascular Provider 07/08/22 08/04/22 Shahida Sutton APRN ACCOUNTS PAYABLES CLERK Assigned PCP 07/08/22 09/08/22 Marilin Montaño, ACCOUNTS PAYABLES CLERK [address] [place] [address] Assigned Heart and Vascular Provider 08/05/22 Esha Dewitt MD [address] [place] [address] 36 [place], [place] [address] Gastroenterology 09/06/22 Heather Mosquera MD [address] [place] [address] Internal Medicine 09/06/22 Paula Reza MD [address] [facility] 200 [place], [place] [address] Assigned PCP 09/09/22 01/05/23 Esha Dewitt MD [facility] 36 [place], [place] [address] Assigned Gastroenterology Provider 09/23/22 Valdo Escamilla PA-C [address] [facility] [address] [place], [place] [address] Assigned Neuroscience Provider 09/30/22 Nohelia Abarca PA-C [address] [place], [place] [address] Physician Showroom Sales Assistant Gastroenterology 10/03/22 Heather Mosquera MD [address] [facility] 150 [place], [place] [address] Assigned PCP 01/06/23 Fawad York MD [address] [place], [place] [address] Assigned Musculoskeletal Provider 04/27/23 06/25/23 documented as of this encounter
--- OUTSIDE RECORDS SUMMARY | 2023-09-21 08:33 | XMS_ITS | Encounter Summary ---
Author Organization [place] Address [address] [place] [address] Care Team Providers Care Towel Sorter Name Role Phone HermanShahida huerta APRN CHIP TUNER Primary Care Provi ford Unavailable Shahida Sutton APRN CHIP TUNER Unavailable Un available Carolynn Ramon RN Unavailable [phone] Anabela Barakat APRN CHIP TUNER Unavailable Nima France PA-C Unavailable [phone] Basilio Morillo DO Unavailable Fawad York MD Unavailable [phone] Roopa Almonte MD Unavailable Augustine Callaway MD Unavailable Maryse Burton PA-C Unavailable [phone] Marquita Starkey MD Unavailable Roopa Almonte MD Unavailable Griffin Joshi MD Unavailable Rina Magallon RN Unavailable Paula Reza MD Primary Care Provider Griffin Joshi MD Unavailable Roopa Almonte MD Unavailable Ilia Basilio Naik Unavailable [phone] Lydia Bernstein PA-C Unavailable Kate Rosa Maria CHW Unavailable Augustine Callaway MD Unavailable Paula Reza MD Unavailable Keertih Miner APRN CHIP TUNER Unavailable Herman, Shahida Cummings APRN CHIP TUNER Unavailable Un available Porsha Michaels APRN CHIP TUNER Unavailable [phone] Paula Reza MD Unavailable Herman, Shahida Cummings APRN CHIP TUNER Unavailable Un available Daylin Ludwig Unavailable [phone] Laurel Velasquez MD Unavailable Daylin Ludwig Unavailable [phone] Paula Reza MD Unavailable Porsha Michaels APRN CHIP TUNER Unavailable [phone] Laurel Velasquez MD Unavailable Herman, Shahida Cummings APRN CHIP TUNER Unavailable Un available Marilin Montaño CHIP TUNER Unavailable [phone] Esha Dewitt MD Unavailable [phone] Heather Mosquera MD Unavailable Paula Reza MD Unavailable Esha Dewitt MD Unavailable [phone] Valdo Escamilla PA-C Unavailable [phone] Nohelia Abarca PA-C Unavailable [phone] Heather Mosquera MD Unavailable Fawad York MD Unavailable Encounter Details Date Type Department Care Team (Late st Contact Info) Description 09/23/2020 MyC Medical Advice [address] [address] Shahida Sutton, PARTS ANALYST CHIP TUNER Social History Tobacco Use Types Packs/Day Years [...] 7:47 AM CDT RN placed call to [facility] to discuss ##6 on FMLA paperwork - awaiting call back Letter written to employer advising that pcp is out of the office until at which time we will assist with changes requested on FMLA paperwork Information from my chart - To the Attention of Carolynn: ?? Here is what the hyperion administrator is requesting: < < You must [...] Ramon Registered Nurse, ULISES (Patient Advocate Liason) [facility] [phone] documented in this encounter Plan of Treatment [...] documented as of this encounter Care Teams Towel Sorter Relationship Specialty Start Date End Date Shahida Sutton APRN CHIP TUNER PCP - General Nurse Practitioner 08/17/14 08/04/21 Paula Reza MD [facility] [address] [address] PCP - General Internal Medicine 08/05/21 Shahida Sutton APRN CHIP TUNER Assigned PCP 07/12/14 09/30/21 Carolynn Raomn RN Personal Advocate & Liaison (PAL) 12/17/18 08/07/21 Anabela Barakat APRN CHIP TUNER 17[address] [place] [address] Assigned Heart and Vascular Provider 08/15/20 08/05/21 Nima France PA-C [address] [place] [address] Assigned Musculoskeletal Provider 08/22/20 11/13/20 [place] [address] [facility] [place] [address] Assigned Musculoskeletal Provider 11/14/20 12/04/20 Fawad York MD [address] [place], [place] [address] Assigned Musculoskeletal Provider 12/05/20 02/05/21 Roopa Almonte MD [address] [place] [address] Endocrinology, Diabetes, and Metabolism 01/19/21 [place] [address] [facility] [address] [place] [address] Assigned Musculoskeletal Provider 02/06/21 09/16/21 Maryse Burton, PA-C 5[address] [place] [address] Physician Senior Revenue Accountant Dermatology 04/14/21 Marquita Starkey MD [address] 200 [place] [address] Internal Medicine 05/06/21 05/06/21 Roopa Almonte MD [address] 200 [place] [address] Hospitalist Endocrinology, Diabetes, and Metabolism 05/30/21 Griffin Joshi MD [address] [place] [address] Cardiovascular Disease 07/25/21 Rina Magallon, RN Lead Wood Panel Inspector 07/29/21 07/11/22 Griffin Joshi MD [address] [facility] [address] [place] [address] Assigned Heart and Vascular Provider 08/06/21 10/07/21 Roopa Almonte MD [address] [facility] 200 [place] [address] Assigned Endocrinology Provider 09/10/21 [place] [address] [facility] [place] [id number] Assigned Musculoskeletal Provider 09/17/21 10/14/21 Lydia Bernstein PA-C [address] [facility] 150 [place] [address] Assigned PCP 10/01/21 10/21/21 Rosa Maria Love CHW Community Health Worker 10/06/21 07/11/22 [place] [address] [facility] 300 [place] [address] Assigned Musculoskeletal Provider 10/15/21 04/26/23 Paula Reza MD [address] [facility] 200 [place] [address] Assigned PCP 10/22/21 12/23/21 Keerthi Miner APRN CHIP TUNER [address] [place] [address] Assigned Heart and Vascular Provider 10/08/21 02/10/22 Shahida Sutton APRN CHIP TUNER Assigned PCP 12/24/21 03/24/22 Porsha Michaels APRN CHIP TUNER [address] [place] [address] Assigned Heart and Vascular Provider 02/11/22 05/12/22 Paula Reza MD [address] [facility] 200 [place] [address] Assigned PCP 03/25/22 04/07/22 Shahida Sutton APRN CHIP TUNER [address] [place] [address] Assigned PCP 04/08/22 06/30/22 Daylin Ludwig EP [facility] [address] [place] [address] Cardiac Rehabilitation Therapist 05/16/23 Laurel Velasquez MD [address] [place] [address] Assigned Heart and Vascular Provider 05/13/22 06/30/22 Daylin Ludwig EP [facility] [address] [place] [address] Cardiac Rehabilitation Therapist 06/08/22 06/09/23 Paula Reza MD [address] [place] [address] Assigned PCP 07/01/22 07/07/22 Porsha Michaels APRN CHIP TUNER [address] [place] [address] Assigned Heart and Vascular Provider 07/01/22 07/07/22 Laurel Velasquez MD [address] [place] [address] Assigned Heart and Vascular Provider 07/08/22 08/04/22 Shahida Sutton APRN CHIP TUNER Assigned PCP 07/08/22 09/08/22 Marilin Montaño CHIP TUNER [address] [place] [address] Assigned Heart and Vascular Provider 08/05/22 Esha Dewitt MD [address] [place] [address] Gastroenterology 09/06/22 Heather Mosquera MD [address] [place] [address] Internal Medicine 09/06/22 Paula Reza MD [address] [place] [address] Assigned PCP 09/09/22 01/05/23 Esha Dewitt MD [address] [place] [address] Assigned Gastroenterology Provider 09/23/22 Valdo Escamilla PA-C [address] [facility] 103 [place], [place] [address] Assigned Neuroscience Provider 09/30/22 Nohelia Abarca PA-C [address]50 [place], [place] [address] Physician Senior Revenue Accountant Gastroenterology 10/03/22 Heather Mosquera MD 6545 [facility] 150 [place], [place] [address] Assigned PCP 01/06/23 Fawad York MD [address] [place], [place] [address] Assigned Musculoskeletal Provider 04/27/23 06/25/23 documented as of this encounter
--- OUTSIDE RECORDS SUMMARY | 2023-09-21 08:34 | XMS_ITS | Encounter Summary ---
Author Organization [place] Address [address] [place] [address] Care Team Providers Care Dumper Mold Cleaner Name Role Phone Shahida Sutton APRN AIRCRAFT MAINTENANCE TECHNICIAN Primary Care Provi ford Unavailable Shahida Sutton APRN AIRCRAFT MAINTENANCE TECHNICIAN Unavailable Un available Carolynn Raomn RN Unavailable Augustine Callaway MD Unavailable Brady Lion MD Unavailable Un available Nima France-C Unavailable Camille Chandler PA-C Unavailable [phone] Anabela Barakat APRN AIRCRAFT MAINTENANCE TECHNICIAN Unavailable Nima France PA-C Unavailable Basilio Morillo DO Unavailable Fawad York MD Unavailable [phone] Roopa Almonte MD Unavailable [phone] Augustine Callaway MD Unavailable Maryse Burton PA-C Unavailable Marquita Starkey MD Unavailable Roopa Almonte MD Unavailable Griffin Joshi MD Unavailable Rina Magallon RN Unavailable [phone] Paula Reza MD Primary Care Provider [phone] Griffin Joshi MD Unavailable Roopa Almonte MD Unavailable [phone] Basilio Morillo DO Unavailable Lydia Bernstein-C Unavailable Rosa Maria Love Unavailable [phone] Augustine Callaway MD Unavailable Paula Reza MD Unavailable Keerthi Miner APRN AIRCRAFT MAINTENANCE TECHNICIAN Unavailable [phone] Herman, Shahida Cummings APRN AIRCRAFT MAINTENANCE TECHNICIAN Unavailable Un available Porsha Michaels APRN AIRCRAFT MAINTENANCE TECHNICIAN Unavailable [phone] Paula Reza MD Unavailable Shahida Sutton APRN AIRCRAFT MAINTENANCE TECHNICIAN Unavailable Un available Daylin Ludwig Unavailable [phone] Laurel Velasquez MD Unavailable [phone] Daylin Ludwig Unavailable [phone] Paula Reza MD Unavailable Porsha Michaels APRN AIRCRAFT MAINTENANCE TECHNICIAN Unavailable [phone] Laurel Velasquez MD Unavailable [phone] Shahida Sutton FRIT MAKER AIRCRAFT MAINTENANCE TECHNICIAN Unavailable Un available Marilin Montaño AIRCRAFT MAINTENANCE TECHNICIAN Unavailable [phone] Esha Dewitt MD Unavailable [phone] EvelineHeather MD Unavailable [phone] Paula Reza MD Unavailable Esha Dewitt MD Unavailable [phone] Valdo Escamilla PA-C Unavailable Nohelia Abarca PA-C Unavailable [phone] Heather Mosquera MD Unavailable [phone] Fawad York MD Unavailable Encounter Details Date Type Department Care Team (Late st Contact Info) Description 06/29/2020 MyC Medical Advice [address] [address] Hiral Curran, BRUSH MAKER Social History Tobacco Use Types Packs/Day [...] documented as of this encounter Care Teams Dumper Mold Cleaner Relationship Specialty Start Date End Date Shahida Sutton APRN AIRCRAFT MAINTENANCE TECHNICIAN PCP - General Nurse Practitioner 08/17/14 08/04/21 Paula Reza MD [address] [facility] 200 [place] [address] PCP - General Internal Medicine 08/05/21 Shahida Sutton APRN AIRCRAFT MAINTENANCE TECHNICIAN Assigned PCP 07/12/14 09/30/21 Carolynn Ramon, KASIE Personal Advocate & Liaison (PAL) 12/17/18 08/07/21 [place] [address] [facility] 300 [place] [address] Assigned Musculoskeletal Provider 12/26/19 08/21/20 Brady Lion MD Assigned Heart and Vascular Provider 12/26/19 08/14/20 Nima France PA-C 6545 [facility] 450 [place] [address] Assigned Surgical Provider 05/19/20 08/21/20 Camille Chandler PA-C 6545 [facility] [address] [place] [address] Assigned Neuroscience Provider 05/19/20 09/14/20 Anabela Barakat APRN AIRCRAFT MAINTENANCE TECHNICIAN 1700 [place] [address] Assigned Heart and Vascular Provider 08/15/20 08/05/21 Nima France PA-C [address] [facility] 450 [place] [address] Assigned Musculoskeletal Provider 08/22/20 11/13/20 [place] [address] [facility] [place] [address] Assigned Musculoskeletal Provider 11/14/20 12/04/20 Fawad York MD [address] [place], [place] [address] Assigned Musculoskeletal Provider 12/05/20 02/05/21 Roopa Almonte MD [address] [facility] 200 [place] [address] Endocrinology, Diabetes, and Metabolism 01/19/21 [place] [address] [facility] 300 [place] [address] Assigned Musculoskeletal Provider 02/06/21 09/16/21 Maryse Burton PA-C [address] [place] [address] Physician Occupational Therapy Professor Dermatology 04/14/21 Marquita Starkey MD [address] [place] [address] Internal Medicine 05/06/21 05/06/21 Roopa Almonte MD [address] [place] [address] Hospitalist Endocrinology, Diabetes, and Metabolism 05/30/21 Griffin Joshi MD [address] [place] [address] Cardiovascular Disease 07/25/21 Rina Magallon, RN Lead Professional Bass Fisherman 07/29/21 07/11/22 Griffin Joshi MD [address] [place] [address] Assigned Heart and Vascular Provider 08/06/21 10/07/21 Roopa Almonte MD [address] 200 [place] [address] Assigned Endocrinology Provider 09/10/21 [place] [address] [facility] [place] [address] Assigned Musculoskeletal Provider 09/17/21 10/14/21 Lydia Bernstein PA-C [address] [place] [address] Assigned PCP 10/01/21 10/21/21 Rosa Maria Love CHW Community Health Worker 10/06/21 07/11/22 [place] [address] [address] [place] [address] Assigned Musculoskeletal Provider 10/15/21 04/26/23 Paula Reza MD [address] [facility] 200 [place], [place] [address] Assigned PCP 10/22/21 12/23/21 Keerthi Miner FRIT MAKER AIRCRAFT MAINTENANCE TECHNICIAN [address] [place], [place] [address] Assigned Heart and Vascular Provider 10/08/21 02/10/22 Shahida Sutton FRIT MAKER AIRCRAFT MAINTENANCE TECHNICIAN Assigned PCP 12/24/21 03/24/22 Porsha Michaels FRIT MAKER AIRCRAFT MAINTENANCE TECHNICIAN [address] [place] [address] Assigned Heart and Vascular Provider 02/11/22 05/12/22 Paula Reza MD [address] [facility] 200 [place] [address] Assigned PCP 03/25/22 04/07/22 Shahida Sutton APRN AIRCRAFT MAINTENANCE TECHNICIAN [address] [place] [address] Assigned PCP 04/08/22 06/30/22 Daylin Ludwig, MIKI [facility] [address] [place] [address] Cardiac Rehabilitation Therapist 05/16/23 Laurel Velasquez MD [address] [place] [address] Assigned Heart and Vascular Provider 05/13/22 06/30/22 Daylin Ludwig, MIKI [facility] [address] [place] [address] Cardiac Rehabilitation Therapist 06/08/22 06/09/23 Paula Reza MD [address] [place], [place] [address] Assigned PCP 07/01/22 07/07/22 Porsha Michaels APRN AIRCRAFT MAINTENANCE TECHNICIAN [address] [place] [address] Assigned Heart and Vascular Provider 07/01/22 07/07/22 Laurel Velasquez MD [address] [place], [place] [address] Assigned Heart and Vascular Provider 07/08/22 08/04/22 Shahida Sutton APRN AIRCRAFT MAINTENANCE TECHNICIAN Assigned PCP 07/08/22 09/08/22 Marilin Montaño AIRCRAFT MAINTENANCE TECHNICIAN [address] [place] [address] Assigned Heart and Vascular Provider 08/05/22 Esha Dewitt MD [address] [place] [address] Gastroenterology 09/06/22 Heather Msoquera MD [address] [place] [address] Internal Medicine 09/06/22 Paula Reza MD [address] [place] [address] Assigned PCP 09/09/22 01/05/23 Esha Dewitt MD [address] [place] [address] Assigned Gastroenterology Provider 09/23/22 Valdo Escamilla PA-C 6363 [facility] 103 [place] [address] Assigned Neuroscience Provider 09/30/22 Nohelia Abarca PA-C 2450 [place] [address] Physician Occupational Therapy Professor Gastroenterology 10/03/22 Heather Mosquera MD [facility] [facility] 150 [place] [address] Assigned PCP 01/06/23 Fawad York MD 9[address] [place], [place] [address] Assigned Musculoskeletal Provider 04/27/23 06/25/23 documented as of this encounter
--- OUTSIDE RECORDS SUMMARY | 2023-09-21 08:34 | XMS_ITS | Encounter Summary ---
Author Organization [facility] Address [address] [place] [address] Care Team Providers Care Long Wall Mining Machine Helper Name Role Phone Shahida Sutton APRN CAE ENGINEER Primary Care Provi ford Unavailable Shahida Sutton APRN CAE ENGINEER Unavailable Un available Carolynn Ramon RN Unavailable Augustine Callaway MD Unavailable Brady Lion MD Unavailable Un available Nima France-C Unavailable Camille Chandler PA-C Unavailable [phone] Anabela Barakat APRN CAE ENGINEER Unavailable Nima France PA-C Unavailable Basilio Morillo DO Unavailable [phone] Fawad York MD Unavailable Roopa Almonte MD Unavailable [phone] Augustine Callaway MD Unavailable Maryse Burton PA-C Unavailable Marquita Starkey MD Unavailable Roopa Almonte MD Unavailable Griffin Joshi MD Unavailable Rina Magallon RN Unavailable [phone] Paula Reza MD Primary Care Provider [phone] Griffin Joshi MD Unavailable Roopa Almonte MD Unavailable [phone] Basilio Morillo DO Unavailable Lydia Bernstein-C Unavailable Rosa Maria Love Unavailable [phone] Augustine Callaway MD Unavailable Paula Reza MD Unavailable Keerthi Miner APRN CAE ENGINEER Unavailable [phone] Herman, Shahida Cummings APRN CAE ENGINEER Unavailable Un available Porsha Michaels APRN CAE ENGINEER Unavailable [phone] Paula Reza MD Unavailable Shahida Sutton APRN CAE ENGINEER Unavailable Un available Daylin Ludwig Unavailable [phone] Laurel Velasquez MD Unavailable [phone] Daylin Ludwig Unavailable [phone] Paula Reza MD Unavailable Porsha Michaels APRN CAE ENGINEER Unavailable [phone] Laurel Velasquez MD Unavailable [phone] Shahida Sutton OIL TRUCK DRIVER CAE ENGINEER Unavailable Un available Marilin Montaño CAE ENGINEER Unavailable [phone] Esha Dewitt MD Unavailable [phone] EvelineHeather MD Unavailable [phone] Paula Reza MD Unavailable Esha Dewitt MD Unavailable [phone] Valdo Escamilla PA-C Unavailable Nohelia Abarca PA-C Unavailable [phone] Heather Mosquera MD Unavailable Fawad York MD Unavailable Encounter Details Date Type Department Care Team (Late st Contact Info) Description 09/30/2019 MyC Medical Advice [address] [address] Emma Bryan MA Social History [...] Out COVID-19 02/15/2020 02/15/2020 02/16/2020 2:32 PM REVERSAL PRINT INSPECTOR Rule Out COVID-19 01/05/2021 01/05/2021 01/06/2021 12:57 PM CDT ESBL 01/05/2021 01/05/2021 Rule Out COVID-19 06/30/2021 06/30/2021 07/01/2021 9:34 AM CDT Rule Out COVID-19 07/25/2021 07/25/2021 07/25/2021 8:02 PM CDT Assessment Noted Time PHQ-9 Depression Total Score: 7 08/13/19 20 1:22 PM CDT documented as of this encounter Care Teams Long Wall Mining Machine Helper Relationship Specialty Start Date End Date Shahida Sutton APRN CAE ENGINEER PCP - General Nurse Practitioner 08/17/14 08/04/21 Paula Reza MD [address] [facility] 200 [place] [address] PCP - General Internal Medicine 08/05/21 Shahida Sutton APRN CAE ENGINEER Assigned PCP 07/12/14 09/30/21 Carolynn Ramon RN Personal Advocate & Liaison (PAL) 12/17/18 08/07/21 [place] [address] [place] [address] Assigned Musculoskeletal Provider 12/26/19 08/21/20 Brady Lion MD Assigned Heart and Vascular Provider 12/26/19 08/14/20 Nima France PA-C [address] [place] [address] Assigned Surgical Provider 05/19/20 08/21/20 Camille Chandler PA-C [address] [place] [id number] Assigned Neuroscience Provider 05/19/20 09/14/20 Anabela Barakat APRN CAE ENGINEER [address] [place] [address] Assigned Heart and Vascular Provider 08/15/20 08/05/21 Nima France PA-C [address] [facility] [address] [place] [address] Assigned Musculoskeletal Provider 08/22/20 11/13/20 [place] [address] [facility] [place] [place] [address] Assigned Musculoskeletal Provider 11/14/20 12/04/20 Fawad York MD [address] [place], [place] [address] Assigned Musculoskeletal Provider 12/05/20 02/05/21 Roopa Almonte MD [address] [facility] 200 [place] [address] Endocrinology, Diabetes, and Metabolism 01/19/21 [place] [address] [facility] [address] [place] [address] Assigned Musculoskeletal Provider 02/06/21 09/16/21 Maryse Burton PA-C [address] [place] [address] Physician Field Care Manager Dermatology 04/14/21 Marquita Starkey MD [address] [facility] 200 [place], [place] [address] Internal Medicine 05/06/21 05/06/21 Roopa Almonte MD [address] [facility] 200 [place], [place] [address] Hospitalist Endocrinology, Diabetes, and Metabolism 05/30/21 Griffin Joshi MD [address] [facility] [address] [place] [address] Cardiovascular Disease 07/25/21 Rina Magallon, RN Lead Commercial Pest Control Representative 07/29/21 07/11/22 Griffin Joshi MD [address] [place] [address] Assigned Heart and Vascular Provider 08/06/21 10/07/21 Roopa Almonte MD [address] [facility] 200 [place] [address] Assigned Endocrinology Provider 09/10/21 [place] [address] [place] [address] Assigned Musculoskeletal Provider 09/17/21 10/14/21 Lydia Bernstein PA-C [address] [facility] [address] [place] [address] Assigned PCP 10/01/21 10/21/21 Rosa Maria Love CHW Community Health Worker 10/06/21 07/11/22 [place] [address] [facility] 300 [place] [address] Assigned Musculoskeletal Provider 10/15/21 04/26/23 Paula Reza MD [address] [place] [address] Assigned PCP 10/22/21 12/23/21 Keerthi Miner APRN CAE ENGINEER [address] [place] [address] Assigned Heart and Vascular Provider 10/08/21 02/10/22 Shahida Sutton APRN CAE ENGINEER Assigned PCP 12/24/21 03/24/22 Porsha Michaels APRN CAE ENGINEER [address] [place] [address] Assigned Heart and Vascular Provider 02/11/22 05/12/22 Paula Reza MD [address] [place] [address] Assigned PCP 03/25/22 04/07/22 Shahida Sutton APRN CAE ENGINEER [address] [place] [address] Assigned PCP 04/08/22 06/30/22 Daylin Ludwig, EP [facility] [address] [address] Cardiac Rehabilitation Therapist 05/16/23 Laurel Velasquez MD [address] [address] Assigned Heart and Vascular Provider 05/13/22 06/30/22 Daylin Ludwig, EP [facility] [address] [place] [address] Cardiac Rehabilitation Therapist 06/08/22 06/09/23 Paula Reza MD [address] [place], [place] [address] Assigned PCP 07/01/22 07/07/22 Porsha Michaels APRN CAE ENGINEER [address] [place] [address] Assigned Heart and Vascular Provider 07/01/22 07/07/22 Laurel Velasquez MD [address] [place] [address] Assigned Heart and Vascular Provider 07/08/22 08/04/22 Shahida Sutton APRN CAE ENGINEER Assigned PCP 07/08/22 09/08/22 Marilin Montaño, CAE ENGINEER [address] [place] [address] Assigned Heart and Vascular Provider 08/05/22 Esha Dewitt MD [address] [place] [address] 36 [place], [place] [address] Gastroenterology 09/06/22 Heather Mosquera MD [address] [place] [address] Internal Medicine 09/06/22 Paula Reza MD [address] [place] [address] Assigned PCP 09/09/22 01/05/23 Esha Dewitt MD [address] [facility] 36 [place], [place] [address] Assigned Gastroenterology Provider 09/23/22 Valdo Escamilla PA-C [address] [facility] [address] [place] [address] Assigned Neuroscience Provider 09/30/22 Nohelia Abarca PA-C [address] [place] [address] Physician Field Care Manager Gastroenterology 10/03/22 Heather Mosquera MD [address] [place] [address] Assigned PCP 01/06/23 Fawad York MD [address] [place], [place] [address] Assigned Musculoskeletal Provider 04/27/23 06/25/23 documented as of this encounter
--- OUTSIDE RECORDS SUMMARY | 2023-09-21 08:34 | XMS_ITS | Encounter Summary ---
Author Organization [facility] Address [address] [place] [address] Care Team Providers Care Sales And Events Coordinator Name Role Phone Shahida Sutton APRN PURCHASING AND FISCAL CLERK Primary Care Provi ford Unavailable Shahida Sutton APRN PURCHASING AND FISCAL CLERK Unavailable Un available Carolynn Ramon RN Unavailable Augustine Callaway MD Unavailable Brady Lion MD Unavailable Un available Nima France-C Unavailable Camille Chandler PA-C Unavailable [phone] Anabela Barakat APRN PURCHASING AND FISCAL CLERK Unavailable Nima France PA-C Unavailable Basilio Morillo DO Unavailable Fawad York MD Unavailable [phone] Roopa Almonte MD Unavailable Augustine Callaway MD Unavailable Maryse Burton PA-C Unavailable [phone] Marquita Starkey MD Unavailable Roopa Almonte MD Unavailable Griffin Joshi MD Unavailable Rina Magallon RN Unavailable [phone] Paula Reza MD Primary Care Provider [phone] Griffin Joshi MD Unavailable Roopa Almonte MD Unavailable [phone] Basilio Morillo DO Unavailable Lydia Bernstein-C Unavailable Rosa Maria Love Unavailable [phone] Augustine Callaway MD Unavailable Paula Reza MD Unavailable Keerthi Miner APRN PURCHASING AND FISCAL CLERK Unavailable [phone] Herman, Shahida Cummings APRN PURCHASING AND FISCAL CLERK Unavailable Un available Porsha Michaels APRN PURCHASING AND FISCAL CLERK Unavailable [phone] Paula Reza MD Unavailable Shahida Sutton APRN PURCHASING AND FISCAL CLERK Unavailable Un available Daylin Ludwig Unavailable [phone] Laurel Velasquez MD Unavailable [phone] Daylin Ludwig Unavailable [phone] Paula Reza MD Unavailable Porsha Michaels APRN PURCHASING AND FISCAL CLERK Unavailable [phone] Laurel Velasquez MD Unavailable [phone] Shahida Sutton LINUX SYSTEMS ADMINISTRATOR PURCHASING AND FISCAL CLERK Unavailable Un available Marilin Montaño PURCHASING AND FISCAL CLERK Unavailable [phone] Esha Dewitt MD Unavailable [phone] EvelineHeather MD Unavailable [phone] Paula Reza MD Unavailable Esha Dewitt MD Unavailable [phone] Andi Valdo Desouza PA-C Unavailable Nohelia Abarca PA-C Unavailable [phone] Heather Mosquera MD Unavailable Fawad York MD Unavailable [phone] Reason for Visit * Reason Onset Date Comments Refill Request 11/05/2019 Encounter Details Date Type Department Care Team (Late st Contact Info) Description 11/05/2019 MyC Refill [address] [address] Shahida Sutton APRN PURCHASING AND FISCAL CLERK Refill Request Social History Tobacco Use Types [...] 11/05/2019 11:47 AM CDT Prescription approved [place] [facility] Refill Protocol. Radha Smith RN, BSN documented in this encounter Plan of Treatment Not on file documented as of this encounter Visit Diagnoses Diagnosis Other insomnia Generalized anxiety disorder documented in this encounter Additional Health Concerns Infection Onset Date Last Indicated Resolved Time Rule Out COVID-19 02/15/2020 02/15/2020 02/16/2020 2:32 PM REPRESENTATIVE Rule Out COVID-19 01/05/2021 01/05/2021 01/06/2021 12:57 PM CDT ESBL 01/05/2021 01/05/2021 Rule Out COVID-19 06/30/2021 06/30/2021 07/01/2021 9:34 AM CDT Rule Out COVID-19 07/25/2021 07/25/2021 07/25/2021 8:02 PM CDT Assessment Noted Time PHQ-9 Depression Total Score: 7 08/13/19 20 1:22 PM CDT documented as of this encounter Care Teams Sales And Events Coordinator Relationship Specialty Start Date End Date Shahida Sutton APRN PURCHASING AND FISCAL CLERK PCP - General Nurse Practitioner 08/17/14 08/04/21 Paula Reza MD [facility] [address] [facility] [address] [place] [address] PCP - General Internal Medicine 08/05/21 Shahida Sutton APRN PURCHASING AND FISCAL CLERK Assigned PCP 07/12/14 09/30/21 Carolynn Ramon, KASIE Personal Advocate & Liaison (PAL) 12/17/18 08/07/21 [place] [address] [place] [address] Assigned Musculoskeletal Provider 12/26/19 08/21/20 Brady Lion MD Assigned Heart and Vascular Provider 12/26/19 08/14/20 Nima France PA-C [address] [facility] 450 [place] [address] Assigned Surgical Provider 05/19/20 08/21/20 Camille Chandler PA-C [address] [facility] [address] [place] [address] Assigned Neuroscience Provider 05/19/20 09/14/20 Anabela Barakat APRN PURCHASING AND FISCAL CLERK [address]00 [place] [address] Assigned Heart and Vascular Provider 08/15/20 08/05/21 Nima France PA-C [address] [facility] [address] [place] [address] Assigned Musculoskeletal Provider 08/22/20 11/13/20 [place] [address] [place] [address] Assigned Musculoskeletal Provider 11/14/20 12/04/20 Fawad York MD [address] [place] [address] Assigned Musculoskeletal Provider 12/05/20 02/05/21 Roopa Almonte MD [address] [facility] 200 [place] [address] Endocrinology, Diabetes, and Metabolism 01/19/21 [place] [address] [facility] [address] [place] [address] Assigned Musculoskeletal Provider 02/06/21 09/16/21 Maryse Burton PA-C [address] [place] [address] Physician Pattern Filer Dermatology 04/14/21 Marquita Starkey MD [address] [facility] 200 [place] [address] Internal Medicine 05/06/21 05/06/21 Roopa Almonte MD [address] [facility] 200 [place] [address] Hospitalist Endocrinology, Diabetes, and Metabolism 05/30/21 Griffin Joshi MD [address] [facility] [address] [place] [address] Cardiovascular Disease 07/25/21 Rina Magallon, RN Lead Green Meat Grader 07/29/21 07/11/22 Griffin Joshi MD [address] [facility] [address] [place] [address] Assigned Heart and Vascular Provider 08/06/21 10/07/21 Roopa Almonte MD [address] [facility] [address] [place], [place] [address] Assigned Endocrinology Provider 09/10/21 [place] [address] [facility] [place] [address] Assigned Musculoskeletal Provider 09/17/21 10/14/21 Lydia Bernstein PA-C [address] [place] [address] Assigned PCP 10/01/21 10/21/21 Rosa Maria Love CHW Community Health Worker 10/06/21 07/11/22 [place] [address] [place] [address] Assigned Musculoskeletal Provider 10/15/21 04/26/23 Paula Reza MD [address] [place], [place] [address] Assigned PCP 10/22/21 12/23/21 Keerthi Miner APRN PURCHASING AND FISCAL CLERK [address] [place] [address] Assigned Heart and Vascular Provider 10/08/21 02/10/22 Shahida Sutton APRN PURCHASING AND FISCAL CLERK Assigned PCP 12/24/21 03/24/22 Porsha Michaels APRN PURCHASING AND FISCAL CLERK [address] [address] Assigned Heart and Vascular Provider 02/11/22 05/12/22 Paula Reza MD [address] [place] [address] Assigned PCP 03/25/22 04/07/22 Shahida Sutton APRN PURCHASING AND FISCAL CLERK [address] [place] [address] Assigned PCP 04/08/22 06/30/22 Daylin Ludwig, [facility] [address] [place] [address] Cardiac Rehabilitation Therapist 05/16/23 Laurel Velasquez MD [address] [place] [address] Assigned Heart and Vascular Provider 05/13/22 06/30/22 Daylin Ludwig, [facility] [address] [place] [address] Cardiac Rehabilitation Therapist 06/08/22 06/09/23 Paula Reza MD [address] [facility] [address] [place] [address] Assigned PCP 07/01/22 07/07/22 Porsha Michaels APRN PURCHASING AND FISCAL CLERK [address] [place] [address] Assigned Heart and Vascular Provider 07/01/22 07/07/22 Laurel Velasquez MD [address] [place] [address] Assigned Heart and Vascular Provider 07/08/22 08/04/22 Shahida Sutton APRN PURCHASING AND FISCAL CLERK Assigned PCP 07/08/22 09/08/22 Marilin Montaño, PURCHASING AND FISCAL CLERK [address] [address] Assigned Heart and Vascular Provider 08/05/22 Esha Dewitt MD [address] [address] MD Gastroenterology 09/06/22 Heather Mosquera MD [address] [place], [place] [address] Internal Medicine 09/06/22 Paula Reza MD [address] [facility] 200 [place], [place] [address] Assigned PCP 09/09/22 01/05/23 Esha Dewitt MD [address] [address] Assigned Gastroenterology Provider 09/23/22 Valdo Escamilla PA-C [address] [facility] 103 [place], [place] [address] Assigned Neuroscience Provider 09/30/22 Nohelia Abarca PA-C [address] [place], [place] [address] Physician Pattern Filer Gastroenterology 10/03/22 Heather Mosquera MD [address] [place], [place] [address] Assigned PCP 01/06/23 Fawad York MD [address] [place], [place] [address] Assigned Musculoskeletal Provider 04/27/23 06/25/23 documented as of this encounter
--- OUTSIDE RECORDS SUMMARY | 2023-09-21 08:34 | XMS_ITS | Encounter Summary ---
Author Organization [facility] Address [address] [place] [address] Care Team Providers Care Hearing Aid Mechanic Name Role Phone Shahida Sutton APRN EVENT SALES REPRESENTATIVE Primary Care Provi ford Unavailable Shahida Sutton APRN EVENT SALES REPRESENTATIVE Unavailable Un available Carolynn Ramon RN Unavailable Augustine Callaway MD Unavailable Brady Lion MD Unavailable Un available Nima France-C Unavailable Camille Chandlre PA-C Unavailable [phone] Anabela Barakat APRN EVENT SALES REPRESENTATIVE Unavailable Nima France PA-C Unavailable Basilio Morillo DO Unavailable Fawad York MD Unavailable [phone] Roopa Almonte MD Unavailable Augustine Callaway MD Unavailable Maryse Burton PA-C Unavailable Marquita Starkey MD Unavailable Roopa Almonte MD Unavailable Griffin Joshi MD Unavailable Rina Magallon RN Unavailable [phone] Paula Reza MD Primary Care Provider [phone] Griffin Joshi MD Unavailable Roopa Almonte MD Unavailable [phone] Basilio Morillo DO Unavailable Lydia Bernstein-C Unavailable Rosa Maria Love Unavailable [phone] Augustine Callaway MD Unavailable Paula Reza MD Unavailable Keerthi Miner APRN EVENT SALES REPRESENTATIVE Unavailable [phone] Herman, Shahida Cummings APRN EVENT SALES REPRESENTATIVE Unavailable Un available Porsha Michaels APRN EVENT SALES REPRESENTATIVE Unavailable [phone] Paula Reza MD Unavailable Shahida Sutton APRN EVENT SALES REPRESENTATIVE Unavailable Un available Daylin Ludwig Unavailable [phone] Laurel Velasquez MD Unavailable [phone] Daylin Ludwig Unavailable [phone] Paula Reza MD Unavailable Porsha Michaels APRN EVENT SALES REPRESENTATIVE Unavailable [phone] Laurel Velasquez MD Unavailable [phone] Shahida Sutton SECTION PLOTTER OPERATOR EVENT SALES REPRESENTATIVE Unavailable Un available Marilin Montaño EVENT SALES REPRESENTATIVE Unavailable [phone] Esha Dewitt MD Unavailable EvelineHeather MD Unavailable [phone] Paula Reza MD Unavailable Esha Dewitt MD Unavailable [phone] Andi Valdo Desouza PA-C Unavailable [phone] Nohelia Abarca PA-C Unavailable [phone] Heather Mosquera MD Unavailable [phone] Fawad York MD Unavailable [phone] Reason for Visit * Reason Onset Date Comments Refill Request 01/04/2020 Encounter Details Date Type Department Care Team (Late st Contact Info) Description 01/04/2020 MyC Refill M [address] [phone] Shahida Sutton APRN EVENT SALES REPRESENTATIVE Refill Request Social History Tobacco Use Types [...] Out COVID-19 02/15/2020 02/15/2020 02/16/2020 2:32 PM STATION COOK Rule Out COVID-19 01/05/2021 01/05/2021 01/06/2021 12:57 PM CDT ESBL 01/05/2021 01/05/2021 Rule Out COVID-19 06/30/2021 06/30/2021 07/01/2021 9:34 AM CDT Rule Out COVID-19 07/25/2021 07/25/2021 07/25/2021 8:02 PM CDT Assessment Noted Time PHQ-9 Depression Total Score: 7 08/13/19 20 1:22 PM CDT documented as of this encounter Care Teams Hearing Aid Mechanic Relationship Specialty Start Date End Date Shahida Sutton APRN EVENT SALES REPRESENTATIVE PCP - General Nurse Practitioner 08/17/14 08/04/21 Paula Reza MD [address] [facility] [address] [place] [address] PCP - General Internal Medicine 08/05/21 Shahida Sutton APRN EVENT SALES REPRESENTATIVE Assigned PCP 07/12/14 09/30/21 Carloynn Ramon, KASIE Personal Advocate & Liaison (PAL) 12/17/18 08/07/21 [place] [address] [facility] [address] [place] [address] Assigned Musculoskeletal Provider 12/26/19 08/21/20 Brady Lion MD Assigned Heart and Vascular Provider 12/26/19 08/14/20 Nima France PA-C [address] [facility] [address] [place] [address] Assigned Surgical Provider 05/19/20 08/21/20 Cmaille Chandler PA-C [address] [facility] [address] [place] [address] Assigned Neuroscience Provider 05/19/20 09/14/20 Anabela Barakat APRN EVENT SALES REPRESENTATIVE [address] [place] [address] Assigned Heart and Vascular Provider 08/15/20 08/05/21 Nima France PA-C [address] [place] [address] Assigned Musculoskeletal Provider 08/22/20 11/13/20 Ilia Basilio Naik [address] [facility] [place] [address] Assigned Musculoskeletal Provider 11/14/20 12/04/20 Fawad York MD [address] [place], [place] [address] Assigned Musculoskeletal Provider 12/05/20 02/05/21 Roopa Almonte MD [address] [facility] [address] [place] [address] Endocrinology, Diabetes, and Metabolism 01/19/21 [place] [address] [facility] [address] [place] [address] Assigned Musculoskeletal Provider 02/06/21 09/16/21 Maryse Burton PA-C [address] [place] [address] Physician Outside Solar Sales Consultant Dermatology 04/14/21 Marquita Starkey MD [address] [place] [address] Internal Medicine 05/06/21 05/06/21 Roopa Almonte MD [address] [place] [address] Hospitalist Endocrinology, Diabetes, and Metabolism 05/30/21 Griffin Joshi MD [address] [facility] [address] [place] [address] Cardiovascular Disease 07/25/21 Rina Magallon, RN Lead Rags Laborer 07/29/21 07/11/22 Griffin Joshi MD [address] [facility] [address] [place] [address] Assigned Heart and Vascular Provider 08/06/21 10/07/21 Roopa Almonte MD [address] [place] [address] 200 [id number] Assigned Endocrinology Provider 09/10/21 [place] [address] [facility] [place] [address] Assigned Musculoskeletal Provider 09/17/21 10/14/21 Lydia Bernstein PA-C [address] [facility] [address] [place] [address] Assigned PCP 10/01/21 10/21/21 Rosa Maria Love CHW Community Health Worker 10/06/21 07/11/22 [place] [address] [facility] [address] [place] [address] Assigned Musculoskeletal Provider 10/15/21 04/26/23 Paula Reza MD [address] [facility] [address] [place] [address] Assigned PCP 10/22/21 12/23/21 Keerthi Miner APRN EVENT SALES REPRESENTATIVE [address] [place] [address] Assigned Heart and Vascular Provider 10/08/21 02/10/22 Shahida Sutton APRN EVENT SALES REPRESENTATIVE Assigned PCP 12/24/21 03/24/22 Porsha Michaels APRN EVENT SALES REPRESENTATIVE [address] [place] [address] Assigned Heart and Vascular Provider 02/11/22 05/12/22 Paula Reza MD [address] [facility] [address] [place] [address] Assigned PCP 03/25/22 04/07/22 Shahida Sutton APRN EVENT SALES REPRESENTATIVE [address] [place] [address] Assigned PCP 04/08/22 06/30/22 Daylin Ludwig EP [facility] [address] [place] [address] Cardiac Rehabilitation Therapist 05/16/23 Laurel Velasquez MD [address] [place] [address] Assigned Heart and Vascular Provider 05/13/22 06/30/22 Daylin Ludwig EP [facility] [address] [place] [address] Cardiac Rehabilitation Therapist 06/08/22 06/09/23 Paula Reza MD [address] [place] [address] Assigned PCP 07/01/22 07/07/22 Porsha Michaels APRN EVENT SALES REPRESENTATIVE [address] [place] [address] Assigned Heart and Vascular Provider 07/01/22 07/07/22 Laurel Velasquez MD [address] [place] [address] Assigned Heart and Vascular Provider 07/08/22 08/04/22 Shahida Sutton APRN EVENT SALES REPRESENTATIVE Assigned PCP 07/08/22 09/08/22 Marilin Montaño EVENT SALES REPRESENTATIVE [address] [place] [address] Assigned Heart and Vascular Provider 08/05/22 Esha Dewitt MD [address] [place] [address] [id number] Gastroenterology 09/06/22 Heather Mosquera MD [address] [place] [address] Internal Medicine 09/06/22 Paula Reza MD [address] [place] [address] Assigned PCP 09/09/22 01/05/23 Esha Dewitt MD [address] [place] [address] [id number] Assigned Gastroenterology Provider 09/23/22 Valdo Escamilla PA-C [address] [facility] [address] [place] [address] Assigned Neuroscience Provider 09/30/22 Nohelia Abarca PA-C [address] [place], [place] [address] Physician Outside Solar Sales Consultant Gastroenterology 10/03/22 Heather Mosquera MD [address] [facility] [address] [place], [place] [address] Assigned PCP 01/06/23 Fawad York MD [address] [place], [place] [address] Assigned Musculoskeletal Provider 04/27/23 06/25/23 documented as of this encounter
--- OUTSIDE RECORDS SUMMARY | 2023-09-21 08:34 | XMS_ITS | Encounter Summary ---
Author Organization [facility] Address [address] [place] [address] Care Team Providers Care Review Appraiser Name Role Phone Shahida Sutton APRN NURSE SUPERVISOR Primary Care Provi ford Unavailable Shahida Sutton APRN NURSE SUPERVISOR Unavailable Un available Carolynn Ramon RN Unavailable Augustine Callaway MD Unavailable Brady Lion MD Unavailable Un available Nima France-C Unavailable Camille Chandler PA-C Unavailable [phone] Anabela Barakat APRN NURSE SUPERVISOR Unavailable Nima France PA-C Unavailable Basilio Morillo DO Unavailable Fawad York MD Unavailable Roopa Almonte MD Unavailable [phone] Augustine Callaway MD Unavailable Maryse Burton PA-C Unavailable Marquita Starkey MD Unavailable [phone] Roopa Almonte MD Unavailable Griffin Joshi MD Unavailable Rina Magallon RN Unavailable [phone] Paula Reza MD Primary Care Provider [phone] Griffin Joshi MD Unavailable Roopa Almonte MD Unavailable [phone] Basilio Morillo DO Unavailable Lydia Bernstein-C Unavailable Rosa Maria Love Unavailable [phone] Augustine Callaway MD Unavailable Paula Reaz MD Unavailable Keerthi Miner APRN NURSE SUPERVISOR Unavailable [phone] Herman, Shahida Cummings APRN NURSE SUPERVISOR Unavailable Un available Porsha Michaels APRN NURSE SUPERVISOR Unavailable [phone] Paula Reza MD Unavailable Shahida Sutton APRN NURSE SUPERVISOR Unavailable Un available Daylin Ludwig Unavailable [phone] Laurel Velasquez MD Unavailable [phone] Daylin Ludwig Unavailable [phone] Paula Reza MD Unavailable Porsha Michaels APRN NURSE SUPERVISOR Unavailable [phone] Laurel Velasquez MD Unavailable [phone] Shahida Sutton RESEARCH COORDINATOR NURSE SUPERVISOR Unavailable Un available Marilin Montaño NURSE SUPERVISOR Unavailable [phone] Esha Dewitt MD Unavailable [phone] EvelineHeather MD Unavailable [phone] Paula Reza MD Unavailable Esha Dewitt MD Unavailable [phone] Valdo Escamilla PA-C Unavailable Nohelia Abarca PA-C Unavailable [phone] Heather Mosquera MD Unavailable [phone] Fawad York MD Unavailable Encounter Details Date Type Department Care Team (Late st Contact Info) Description 02/05/2020 Documentation Only [address] [phone] Shahida Sutton APRN NURSE SUPERVISOR Social History Tobacco Use Types Packs/Day Years [...] COVID-19? No / Unsure 02/06/2020 8:12 AM CONSUMER LENDER documented as of this encounter Plan of Treatment Not on file documented as of this encounter Visit Diagnoses Not on filedocumented in this encounter Additional Health Concerns Infection Onset Date Last Indicated Resolved Time Rule Out COVID-19 02/15/2020 02/15/2020 02/16/2020 2:32 PM CONSUMER LENDER Rule Out COVID-19 01/05/2021 01/05/2021 01/06/2021 12:57 PM CDT ESBL 01/05/2021 01/05/2021 Rule Out COVID-19 06/30/2021 06/30/2021 07/01/2021 9:34 AM CDT Rule Out COVID-19 07/25/2021 07/25/2021 07/25/2021 8:02 PM CDT Assessment Noted Time PHQ-9 Depression Total Score: 7 08/13/19 20 1:22 PM CDT documented as of this encounter Care Teams Review Appraiser Relationship Specialty Start Date End Date Shahida Sutton APRN NURSE SUPERVISOR PCP - General Nurse Practitioner 08/17/14 08/04/21 Paula Reza MD [address] [facility] [address] [place] [address] PCP - General Internal Medicine 08/05/21 Shahida Sutton APRN NURSE SUPERVISOR Assigned PCP 07/12/14 09/30/21 Carolynn Ramon RN Personal Advocate & Liaison (PAL) 12/17/18 08/07/21 [place] [address] [place] [address] Assigned Musculoskeletal Provider 12/26/19 08/21/20 Brady Lion MD Assigned Heart and Vascular Provider 12/26/19 08/14/20 Nima France PA-C [address] [place] [address] Assigned Surgical Provider 05/19/20 08/21/20 Camille Chandler PA-C [address] [place] [address] Assigned Neuroscience Provider 05/19/20 09/14/20 Anabela Barakat APRN NURSE SUPERVISOR [address] [place] [address] Assigned Heart and Vascular Provider 08/15/20 08/05/21 Nima France PA-C [address] [facility] [address] [place] [address] Assigned Musculoskeletal Provider 08/22/20 11/13/20 [place] [address] [place] [address] Assigned Musculoskeletal Provider 11/14/20 12/04/20 Fawad York MD [address] [place], [place] [address] Assigned Musculoskeletal Provider 12/05/20 02/05/21 Roopa Almonte MD [address] [facility] 200 [place] [address] Endocrinology, Diabetes, and Metabolism 01/19/21 [place] [address] [facility] [place] [address] Assigned Musculoskeletal Provider 02/06/21 09/16/21 Maryse Burton PA-C [address]200 [place] [address] Physician Migratory Worker Dermatology 04/14/21 Marquita Starkey MD [address] [facility] [address] [place], [place] [address] Internal Medicine 05/06/21 05/06/21 Roopa Almonte MD [address] [facility] [address] [place], [place] [address] Hospitalist Endocrinology, Diabetes, and Metabolism 05/30/21 Griffin Joshi MD [address] [facility] [address] [place] [address] Cardiovascular Disease 07/25/21 Rina Magallon, RN Lead Limnologist 07/29/21 07/11/22 Griffin Joshi MD [address] [place] [address] Assigned Heart and Vascular Provider 08/06/21 10/07/21 Roopa Almonte MD [address] [facility] 200 [place], [place] [address] Assigned Endocrinology Provider 09/10/21 [place] [address] [place] [address] Assigned Musculoskeletal Provider 09/17/21 10/14/21 Lydia Bernstein PA-C [address] [facility] [address] [place] [address] Assigned PCP 10/01/21 10/21/21 Rosa Maria Love CHW Community Health Worker 10/06/21 07/11/22 [place] [address] [place] [address] Assigned Musculoskeletal Provider 10/15/21 04/26/23 Paula Reza MD [address] [place] [address] Assigned PCP 10/22/21 12/23/21 Keerthi Miner APRN NURSE SUPERVISOR [address] [place] [address] Assigned Heart and Vascular Provider 10/08/21 02/10/22 Shahida Sutton APRN NURSE SUPERVISOR Assigned PCP 12/24/21 03/24/22 Porsha Michaels APRN NURSE SUPERVISOR [address] [place] [address] Assigned Heart and Vascular Provider 02/11/22 05/12/22 Paula Reza MD [address] [place] [address] Assigned PCP 03/25/22 04/07/22 Shahida Sutton APRN NURSE SUPERVISOR [address] [place] [address] Assigned PCP 04/08/22 06/30/22 Daylin Ludwig, EP [facility] [address] [place] [address] Cardiac Rehabilitation Therapist 05/16/23 Laurel Velasquez MD [address] [place] [address] Assigned Heart and Vascular Provider 05/13/22 06/30/22 Daylin Ludwig, EP [facility] [address] [place] [address] Cardiac Rehabilitation Therapist 06/08/22 06/09/23 Paula Reza MD [address] [place], [place] [address] Assigned PCP 07/01/22 07/07/22 Porsha Michaels APRN NURSE SUPERVISOR [address] [place] [address] Assigned Heart and Vascular Provider 07/01/22 07/07/22 Laurel Velasquez MD [address] [place] [address] Assigned Heart and Vascular Provider 07/08/22 08/04/22 Shahida Sutton APRN NURSE SUPERVISOR Assigned PCP 07/08/22 09/08/22 Marilin Montaño, NURSE SUPERVISOR [address] [place] [address] Assigned Heart and Vascular Provider 08/05/22 Esha Dewitt MD [address] [place] [address] 36 [place], [place] [address] Gastroenterology 09/06/22 Heather Mosquera MD [address] [place] [address] Internal Medicine 09/06/22 Paula Reza MD [address] [place] [address] Assigned PCP 09/09/22 01/05/23 Esha Dewitt MD [address] [facility] 36 [place], [place] [address] Assigned Gastroenterology Provider 09/23/22 Valdo Escamilla PA-C [address] [facility] [address] [place] [address] Assigned Neuroscience Provider 09/30/22 Nohelia Abarca PA-C [address] [place] [address] Physician Migratory Worker Gastroenterology 10/03/22 Heather Mosquera MD [address] [place] [address] Assigned PCP 01/06/23 Fawad York MD [address] [place], [place] [address] Assigned Musculoskeletal Provider 04/27/23 06/25/23 documented as of this encounter
--- OUTSIDE RECORDS SUMMARY | 2023-09-21 08:34 | XMS_ITS | Encounter Summary ---
Author Organization [place] Address [address] [place] [address] Care Team Providers Care Aboriginal Ceremonial Celebrant Name Role Phone Shahida Sutton APRN HORSE EXERCISER Primary Care Provi ford Unavailable Shahida Sutton APRN HORSE EXERCISER Unavailable Un available Carolynn Ramon RN Unavailable [phone] Augustine Callaway MD Unavailable Brady Lion MD Unavailable Un available Nima France-C Unavailable Camille Chandler PA-C Unavailable [phone] Anabela Barakat APRN HORSE EXERCISER Unavailable Nima France PA-C Unavailable Basilio Morillo DO Unavailable Fawad York MD Unavailable Roopa Almonte MD Unavailable Augustine Callaway MD Unavailable Maryse Burton PA-C Unavailable Marquita Starkey MD Unavailable Roopa Almonte MD Unavailable Griffin Joshi MD Unavailable Rina Magallon RN Unavailable [phone] Paula Reza MD Primary Care Provider [phone] Griffin Joshi MD Unavailable Roopa Almonte MD Unavailable [phone] Basilio Morillo DO Unavailable Lydia Bernstein-C Unavailable Rosa Maria Love Unavailable [phone] Augustine Callaway MD Unavailable Paula Reza MD Unavailable Keerthi Miner APRN HORSE EXERCISER Unavailable [phone] Herman, Shahida Cummings APRN HORSE EXERCISER Unavailable Un available Porsha Michaels APRN HORSE EXERCISER Unavailable [phone] Paula Reza MD Unavailable Shahida Sutton APRN HORSE EXERCISER Unavailable Un available Daylin Ludwig Unavailable [phone] Laurel Velasquez MD Unavailable [phone] Daylin Ludwig Unavailable [phone] Paula Reza MD Unavailable Porsha Michaels APRN HORSE EXERCISER Unavailable [phone] Laurel Velasquez MD Unavailable [phone] Shahida Sutton FLOATING OPERATOR HORSE EXERCISER Unavailable Un available Marilin Montaño HORSE EXERCISER Unavailable [phone] Esha Dewitt MD Unavailable [phone] EvelineHeather MD Unavailable [phone] Paula Reza MD Unavailable Esha Dewitt MD Unavailable [phone] Andi Valdo Desouza PA-C Unavailable Nohelia Abarca PA-C Unavailable [phone] Heather Mosquera MD Unavailable [phone] Fawad York MD Unavailable Reason for Visit * Reason Comments Medication Refill Encounter Details Date Type Department Care Team (Late st Contact Info) Description 08/03/[address] [address] Shahida Sutton APRN CNP Medication [...] 08/05/2020 2:10 PM CDT Prescription approved per [facility] Refill Protocol. Marilin Cuevas RN [facility] -- Triage Nurse documented in this encounter [...] documented as of this encounter Care Teams Aboriginal Ceremonial Celebrant Relationship Specialty Start Date End Date Shahida Sutton APRN HORSE EXERCISER PCP - General Nurse Practitioner 08/17/14 08/04/21 Paula Reza MD [address] [facility] [address] [place] [address] PCP - General Internal Medicine 08/05/21 Shahida Sutton APRN HORSE EXERCISER Assigned PCP 07/12/14 09/30/21 Carolynn Ramon RN Personal Advocate & Liaison (PAL) 12/17/18 08/07/21 [place] [address] [address] [place] [address] Assigned Musculoskeletal Provider 12/26/19 08/21/20 Brady Lion MD Assigned Heart and Vascular Provider 12/26/19 08/14/20 Niam France PA-C [address] [place] [address] Assigned Surgical Provider 05/19/20 08/21/20 Camille Chandler PA-C [address] [place] [id number] Assigned Neuroscience Provider 05/19/20 09/14/20 Anabela Barakat APRN HORSE EXERCISER [address] [place] [address] Assigned Heart and Vascular Provider 08/15/20 08/05/21 Nima France PA-C [address] [facility] [address] [place] [address] Assigned Musculoskeletal Provider 08/22/20 11/13/20 [place] [address] [facility] [place], [place] [address] Assigned Musculoskeletal Provider 11/14/20 12/04/20 Fawad York MD [address] [place], [place] [address] Assigned Musculoskeletal Provider 12/05/20 02/05/21 Roopa Amlonte MD [address] [facility] [address] [place] [address] Endocrinology, Diabetes, and Metabolism 01/19/21 [place] [address] [facility] [address] [place] [address] Assigned Musculoskeletal Provider 02/06/21 09/16/21 Maryse Burton PA-C [address] [place] [address] Physician Automation Test Developer Dermatology 04/14/21 Marquita Starkey MD [address] [facility] 200 [place] [address] Internal Medicine 05/06/21 05/06/21 Roopa Almonte MD [address] [place] [address] Hospitalist Endocrinology, Diabetes, and Metabolism 05/30/21 Griffin Joshi MD [address] [facility] [address] [place] [address] Cardiovascular Disease 07/25/21 Rina Magallon, RN Lead Garment Worker 07/29/21 07/11/22 Griffin Joshi MD [address] [facility] [address] [place] [address] Assigned Heart and Vascular Provider 08/06/21 10/07/21 Roopa Almonte MD [address] [facility] [address] [place] [address] Assigned Endocrinology Provider 09/10/21 [place] [address] [facility] [place] [address] Assigned Musculoskeletal Provider 09/17/21 10/14/21 Lydia Bernstein PA-C [address] [facility] [address] [place] [address] Assigned PCP 10/01/21 10/21/21 Rosa Maria Love CHW Community Health Worker 10/06/21 07/11/22 [place] [address] [address] [place] [address] Assigned Musculoskeletal Provider 10/15/21 04/26/23 Paula Reza MD [address] [place] [address] Assigned PCP 10/22/21 12/23/21 Keerthi Miner APRN HORSE EXERCISER [address] [place] [address] Assigned Heart and Vascular Provider 10/08/21 02/10/22 Shahida Sutton APRN HORSE EXERCISER Assigned PCP 12/24/21 03/24/22 Porsha Michaels APRN HORSE EXERCISER [address] [place] [address] Assigned Heart and Vascular Provider 02/11/22 05/12/22 Paula Reza MD [address] [place] [address] Assigned PCP 03/25/22 04/07/22 Shahida Sutton APRN HORSE EXERCISER [address] [place] [address] Assigned PCP 04/08/22 06/30/22 Daylin Ludwig, MIKI [facility] [address] [place] [address] Cardiac Rehabilitation Therapist 05/16/23 Laurel Velasquez MD [address] [place] [address] Assigned Heart and Vascular Provider 05/13/22 06/30/22 Daylin Ludwig, MIKI [facility] [address] [place], [place] [address] Cardiac Rehabilitation Therapist 06/08/22 06/09/23 Paula Reza MD [address] [place], [place] [address] Assigned PCP 07/01/22 07/07/22 Porsha Michaels APRN HORSE EXERCISER [address] [place] [address] Assigned Heart and Vascular Provider 07/01/22 07/07/22 Laurel Velasquez MD [address] [place] [address] Assigned Heart and Vascular Provider 07/08/22 08/04/22 Shahida Sutton, DUANE HORSE EXERCISER Assigned PCP 07/08/22 09/08/22 Marilin Montaño, HORSE EXERCISER [address] [place] [address] Assigned Heart and Vascular Provider 08/05/22 Esha Dewitt MD [address] [place] [address] [address] [place], [place] [address] Gastroenterology 09/06/22 Heather Mosquera MD [address] [place] [address] Internal Medicine 09/06/22 Paula Reza MD [address] [place] [address] Assigned PCP 09/09/22 01/05/23 Esha Dewitt MD [address] [facility] [address] [place], [place] [address] Assigned Gastroenterology Provider 09/23/22 Valdo Escamilla PA-C [address] [facility] [address] [place] [address] Assigned Neuroscience Provider 09/30/22 Nohelia Abarca PA-C [address] [place] [address] Physician Automation Test Developer Gastroenterology 10/03/22 Heather Mosquera MD [address] [facility] [address] [facility] [address] [place] [address] Assigned PCP 01/06/23 Fawad York MD [address] [place], [place] [address] Assigned Musculoskeletal Provider 04/27/23 06/25/23 documented as of this encounter
--- OUTSIDE RECORDS SUMMARY | 2023-09-21 08:34 | XMS_ITS | Encounter Summary ---
Author Organization [place] Address [address] [place] [address] Care Team Providers Care Cloth Shrinker Name Role Phone Shahida Sutton APRN TRAFFIC SIGNAL SUPERVISOR MAINTENANCE Primary Care Provi ford Unavailable Shahida Sutton APRN TRAFFIC SIGNAL SUPERVISOR MAINTENANCE Unavailable Un available Carolynn Ramon RN Unavailable Augustine Callaway MD Unavailable Brady Lion MD Unavailable Un available Nima France-C Unavailable Camille Chandler PA-C Unavailable [phone] Anabela Barakat APRN TRAFFIC SIGNAL SUPERVISOR MAINTENANCE Unavailable Nima France PA-C Unavailable Basilio Morillo DO Unavailable Fawad York MD Unavailable Roopa Almonte MD Unavailable Augustine Callaway MD Unavailable Maryse Burton PA-C Unavailable Marquita Starkey MD Unavailable [phone] Roopa Almonte MD Unavailable Griffin Joshi MD Unavailable Rina Magallon RN Unavailable [phone] Paula Reza MD Primary Care Provider [phone] Griffin Joshi MD Unavailable Roopa Almonte MD Unavailable [phone] Basilio Morillo DO Unavailable Lydia Bernstein-C Unavailable Rosa Maria Love Unavailable [phone] Augustine Callaway MD Unavailable Paula Reza MD Unavailable Keerthi Miner APRN TRAFFIC SIGNAL SUPERVISOR MAINTENANCE Unavailable [phone] Herman, Shahida Cummings APRN TRAFFIC SIGNAL SUPERVISOR MAINTENANCE Unavailable Un available Porsha Michaels APRN TRAFFIC SIGNAL SUPERVISOR MAINTENANCE Unavailable [phone] Paula Reza MD Unavailable Shahida Sutton APRN TRAFFIC SIGNAL SUPERVISOR MAINTENANCE Unavailable Un available Daylin Ludwig Unavailable [phone] Laurel Velasquez MD Unavailable [phone] Daylin Ludwig Unavailable [phone] Paula Reza MD Unavailable Porsha Michaels APRN TRAFFIC SIGNAL SUPERVISOR MAINTENANCE Unavailable [phone] Laurel Velasquez MD Unavailable [phone] Shahida Sutton SKETCH MAKER TRAFFIC SIGNAL SUPERVISOR MAINTENANCE Unavailable Un available Marilin Montaño TRAFFIC SIGNAL SUPERVISOR MAINTENANCE Unavailable [phone] Esha Dewitt MD Unavailable [phone] EvelineHeather MD Unavailable [phone] Paula Reza MD Unavailable Esha Dewitt MD Unavailable [phone] Andi Valdo Desouza PA-C Unavailable Nohelia Abarca PA-C Unavailable [phone] Heather Mosquera MD Unavailable Fawad York MD Unavailable [phone] Reason for Visit * Reason Comments Medication Refill Encounter Details Date Type Department Care Team (Late st Contact Info) Description 03/31/[address] [address] Shahida Sutton APRN TRAFFIC SIGNAL SUPERVISOR MAINTENANCE Medication Refill Social History Tobacco Use Types [...] Paige Mena RN - 03/31/2020 11:32 AM AIR INTELLIGENCE SPECIALIST Routing refill request to provider for review/approval because: Drug not on the [facility] refill protocol Paige Mena RN INTELLIGENCE SPECIALIST documented in this encounter Plan of Treatment [...] documented as of this encounter Care Teams Cloth Shrinker Relationship Specialty Start Date End Date Shahida Sutton APRN TRAFFIC SIGNAL SUPERVISOR MAINTENANCE PCP - General Nurse Practitioner 08/17/14 08/04/21 Paula Reza MD [address] [facility] 200 [place] [address] PCP - General Internal Medicine 08/05/21 Shahida Sutton APRN TRAFFIC SIGNAL SUPERVISOR MAINTENANCE Assigned PCP 07/12/14 09/30/21 Carolynn Ramon RN Personal Advocate & Liaison (PAL) 12/17/18 08/07/21 [place] [address] [place], [place] [address] Assigned Musculoskeletal Provider 12/26/19 08/21/20 Brady Lion MD Assigned Heart and Vascular Provider 12/26/19 08/14/20 Nima France PA-C [address] [place] [address] Assigned Surgical Provider 05/19/20 08/21/20 Camille Chandler PA-C [address] [place] [address] Assigned Neuroscience Provider 05/19/20 09/14/20 Anabela Barakat APRN TRAFFIC SIGNAL SUPERVISOR MAINTENANCE [address] [place] [address] Assigned Heart and Vascular Provider 08/15/20 08/05/21 Nima France PA-C [address] [facility] [address] [place] [address] Assigned Musculoskeletal Provider 08/22/20 11/13/20 [place] [address] [facility] [place], [place] [address] Assigned Musculoskeletal Provider 11/14/20 12/04/20 Fawad York MD [address] [place], [place] [address] Assigned Musculoskeletal Provider 12/05/20 02/05/21 Roopa Almonte MD [address] [facility] [address] [place] [address] Endocrinology, Diabetes, and Metabolism 01/19/21 [place] [address] [facility] [address] [place] [address] Assigned Musculoskeletal Provider 02/06/21 09/16/21 Maryse Burton PA-C [address] [place] [address] Physician Fabrication Lead Dermatology 04/14/21 Marquita Starkey MD [address] [facility] [address] [place] [address] Internal Medicine 05/06/21 05/06/21 Roopa Almonte MD [address] [place] [address] Hospitalist Endocrinology, Diabetes, and Metabolism 05/30/21 Griffin Joshi MD [address] [facility] [address] [place] [address] Cardiovascular Disease 07/25/21 Rina Magallon, RN Lead Lcac Operator 07/29/21 07/11/22 Griffin Joshi MD [address] [facility] [address] [place] [address] Assigned Heart and Vascular Provider 08/06/21 10/07/21 Roopa Almonte MD [address] [address] [place] [address] Assigned Endocrinology Provider 09/10/21 [place] [address] [facility] [place] [address] Assigned Musculoskeletal Provider 09/17/21 10/14/21 Lydia Bernstein PA-C [address] [facility] [address] [place] [address] Assigned PCP 10/01/21 10/21/21 Rosa Maria Love CHW Community Health Worker 10/06/21 07/11/22 [place] [address] [facility] [address] [place] [address] Assigned Musculoskeletal Provider 10/15/21 04/26/23 Paula Reza MD [address] [place] [address] Assigned PCP 10/22/21 12/23/21 Keerthi Miner APRN TRAFFIC SIGNAL SUPERVISOR MAINTENANCE [address] [place] [address] Assigned Heart and Vascular Provider 10/08/21 02/10/22 Shahida Sutton APRN TRAFFIC SIGNAL SUPERVISOR MAINTENANCE Assigned PCP 12/24/21 03/24/22 Porsha Michaels APRN TRAFFIC SIGNAL SUPERVISOR MAINTENANCE [address] [place] [address] Assigned Heart and Vascular Provider 02/11/22 05/12/22 Paula Reza MD [address] [place] [address] Assigned PCP 03/25/22 04/07/22 Shahida Sutton APRN TRAFFIC SIGNAL SUPERVISOR MAINTENANCE [address] [place] [address] Assigned PCP 04/08/22 06/30/22 Daylin Ludwig, MIKI [facility] [address] [place] [address] Cardiac Rehabilitation Therapist 05/16/23 Laurel Velasquez MD [address] [place] [address] Assigned Heart and Vascular Provider 05/13/22 06/30/[address] [facility] [address] [place] [address] Cardiac Rehabilitation Therapist 06/08/22 06/09/23 Paula Reza MD [address] [place], [place] [address] Assigned PCP 07/01/22 07/07/22 Porsha Michaels APRN TRAFFIC SIGNAL SUPERVISOR MAINTENANCE [address] [place] [address] Assigned Heart and Vascular Provider 07/01/22 07/07/22 Laurel Velasquez MD [address] [place] [address] Assigned Heart and Vascular Provider 07/08/22 08/04/22 Shahida Sutton, SKETCH MAKER TRAFFIC SIGNAL SUPERVISOR MAINTENANCE Assigned PCP 07/08/22 09/08/22 Marilin Montaño, TRAFFIC SIGNAL SUPERVISOR MAINTENANCE [address] [place] [address] Assigned Heart and Vascular Provider 08/05/22 Esha Dewitt MD [address] [place] [address] 36 [place], [place] [address] Gastroenterology 09/06/22 Heather Mosquera MD [address] [place] [address] Internal Medicine 09/06/22 Paula Reza MD [address] [place], [place] [address] Assigned PCP 09/09/22 01/05/23 Esha Dewitt MD 420 [facility] 36 [place] [address] Assigned Gastroenterology Provider 09/23/22 Valdo Escamilla PA-C [address] [facility] [address] [place] [address] Assigned Neuroscience Provider 09/30/22 Nohelia Abarca PA-C [address] [place] [address] Physician Fabrication Lead Gastroenterology 10/03/22 Heather Mosquera MD [address]45 [facility] [address] [place] [address] Assigned PCP 01/06/23 Fawad York MD [address] [place], [place] [address] Assigned Musculoskeletal Provider 04/27/23 06/25/23 documented as of this encounter
--- OUTSIDE RECORDS SUMMARY | 2023-09-21 08:34 | XMS_ITS | Encounter Summary ---
Author Organization [facility] Address [address] [place] [address] Care Team Providers Care Combat Rifle Crewmember Name Role Phone Shahida Sutton APRN PRINTER SLOTTER HELPER Primary Care Provi ford Unavailable Shahida Sutton APRN PRINTER SLOTTER HELPER Unavailable Un available Carolynn Ramon RN Unavailable Augustine Callaway MD Unavailable Brady Lion MD Unavailable Un available Nima France-C Unavailable Camille Chandler PA-C Unavailable [phone] Anabela Barakat APRN PRINTER SLOTTER HELPER Unavailable Nima France PA-C Unavailable Basilio Morillo DO Unavailable [phone] Fawad York MD Unavailable Roopa Almonte MD Unavailable [phone] Augustine Callaway MD Unavailable Maryse Burton PA-C Unavailable Marquita Starkey MD Unavailable Roopa Almonte MD Unavailable Griffin Joshi MD Unavailable Rina Magallon RN Unavailable [phone] Paula Reza MD Primary Care Provider [phone] Griffin Joshi MD Unavailable Roopa Almonte MD Unavailable [phone] Basilio Morillo DO Unavailable Lydia Bernstein-C Unavailable Rosa Maria Love Unavailable [phone] Augustine Callaway MD Unavailable Paula Reza MD Unavailable Keerthi Miner APRN PRINTER SLOTTER HELPER Unavailable [phone] Herman, Shahida Cummings APRN PRINTER SLOTTER HELPER Unavailable Un available Porsha Michaels APRN PRINTER SLOTTER HELPER Unavailable [phone] Paula Reza MD Unavailable Shahida Sutton APRN PRINTER SLOTTER HELPER Unavailable Un available Daylin Ludwig Unavailable [phone] Laurel Velasquez MD Unavailable [phone] Daylin Ludwig Unavailable [phone] Paula Reza MD Unavailable Porsha Michaels APRN PRINTER SLOTTER HELPER Unavailable [phone] Laurel Velasquez MD Unavailable [phone] Shahida Sutton LAP CUTTER PRINTER SLOTTER HELPER Unavailable Un available Marilin Montaño PRINTER SLOTTER HELPER Unavailable [phone] Esha Dewitt MD Unavailable [phone] EvelineHeather MD Unavailable [phone] Paula Reza MD Unavailable Esha Dewitt MD Unavailable [phone] Valdo Escamilla PA-C Unavailable oNhelia Abarca PA-C Unavailable [phone] Heather Mosquera MD Unavailable [phone] Fawad York MD Unavailable [phone] Reason for Visit * Reason Comments Medication Refill Encounter Details Date Type Department Care Team (Late st Contact Info) Description 09/03/2019 Refill [facility] [address] [place] [phone] Vesta Aguayo PA-C [id number] [place] [address] Medication Refill Social History Tobacco Use Types [...] Out COVID-19 02/15/2020 02/15/2020 02/16/2020 2:32 PM DAMAGED FREIGHT INSPECTOR Rule Out COVID-19 01/05/2021 01/05/2021 01/06/2021 12:57 PM CDT ESBL 01/05/2021 01/05/2021 Rule Out COVID-19 06/30/2021 06/30/202107/01/2021 9:34 AM CDT Rule Out COVID-19 07/25/2021 07/25/2021 07/25/2021 8:02 PM CDT Assessment Noted Time PHQ-9 Depression Total Score: 7 08/13/19 20 1:22 PM CDT documented as of this encounter Care Teams Combat Rifle Crewmember Relationship Specialty Start Date End Date Shahida Sutton APRN PRINTER SLOTTER HELPER PCP - General Nurse Practitioner 08/17/14 08/04/21 Paula Reza MD [address] [place] [address] PCP - General Internal Medicine 08/05/21 Shahida Sutton APRN PRINTER SLOTTER HELPER Assigned PCP 07/12/14 09/30/21 Carolynn Ramon RN Personal Advocate & Liaison (PAL) 12/17/18 08/07/21 [place] [address] [place] [address] Assigned Musculoskeletal Provider 12/26/19 08/21/20 Brady Lion MD Assigned Heart and Vascular Provider 12/26/19 08/14/20 Nima France PA-C [address] [place] [address] Assigned Surgical Provider 05/19/20 08/21/20 Camille Chandler PA-C [address] [place] [id number] Assigned Neuroscience Provider 05/19/20 09/14/20 StoesAnabela win APRN CNP [address] [place] [address] Assigned Heart and Vascular Provider 08/15/20 08/05/21 Nima France PA-C [address] [facility] 450 [place] [address] Assigned Musculoskeletal Provider 08/22/20 11/13/20 [place] [address] [facility] [place] [address] Assigned Musculoskeletal Provider 11/14/20 12/04/20 Fawad York MD [address] [place], [place] [address] Assigned Musculoskeletal Provider 12/05/20 02/05/21 Roopa Almonte MD [address] [facility] 200 [place], [place] [address] Endocrinology, Diabetes, and Metabolism 01/19/21 [place] [address] [facility] [place] [address] [place] [address] Assigned Musculoskeletal Provider 02/06/21 09/16/21 Maryse Burton PA-C [address] [place] [address] Physician Freight Elevator Operator Dermatology 04/14/21 Marquita Starkey MD [address] [facility] 200 [place], [place] [address] Internal Medicine 05/06/21 05/06/21 Roopa Almonte MD [address] [facility] 200 [place] [address] Hospitalist Endocrinology, Diabetes, and Metabolism 05/30/21 Griffin Joshi MD [address] [place] [address] Cardiovascular Disease 07/25/21 Rina Magallon, RN Lead Production Control Technologist 07/29/21 07/11/22 Griffin Joshi MD [address] [facility] [address] [place] [address] Assigned Heart and Vascular Provider 08/06/21 10/07/21 Roopa Almonte MD [address] [facility] 200 [place] [address] Assigned Endocrinology Provider 09/10/21 [place] [address] [facility] [place] [address] Assigned Musculoskeletal Provider 09/17/21 10/14/21 Lydia Bernstein PA-C [address] [facility] [address] [place] [address] Assigned PCP 10/01/21 10/21/21 Rosa Maria Love CHW Community Health Worker 10/06/21 07/11/22 [place] [address] [address] [facility] [address] [place] [address] Assigned Musculoskeletal Provider 10/15/21 04/26/23 Paula Reza MD [address] [place] [address] Assigned PCP 10/22/21 12/23/21 Keerthi Miner APRN PRINTER SLOTTER HELPER [address] [place] [address] Assigned Heart and Vascular Provider 10/08/21 02/10/22 Shahida Sutton APRN PRINTER SLOTTER HELPER Assigned PCP 12/24/21 03/24/22 Porsha Michaels APRN PRINTER SLOTTER HELPER [address] [place] [address] Assigned Heart and Vascular Provider 02/11/22 05/12/22 Paula Reza MD [address] [place] [address] Assigned PCP 03/25/22 04/07/22 Shahida Sutton APRN PRINTER SLOTTER HELPER [address] [place] [address] Assigned PCP 04/08/22 06/30/22 Daylin Ludwig, MIKI [facility] [address] [place] [address] Cardiac Rehabilitation Therapist 05/16/23 Laurel Velasquez MD [address] [place] [address] Assigned Heart and Vascular Provider 05/13/22 06/30/[address] [facility] [address] [place], [place] [address] Cardiac Rehabilitation Therapist 06/08/22 06/09/23 Paula Reza MD [address] [place] [address] Assigned PCP 07/01/22 07/07/22 Porsha Michaels APRN PRINTER SLOTTER HELPER [address] [place] [address] Assigned Heart and Vascular Provider 07/01/22 07/07/22 Laurel Velasquez MD [address] [place] [address] Assigned Heart and Vascular Provider 07/08/22 08/04/22 Shahida Sutton APRN PRINTER SLOTTER HELPER Assigned PCP 07/08/22 09/08/22 Marilin Montaño, PRINTER SLOTTER HELPER [address] [place] [address] Assigned Heart and Vascular Provider 08/05/22 Esha Dewitt MD [address] [place] [address] 36 [place], [place] [address] Gastroenterology 09/06/22 Heather Mosquera MD [address] [place] [address] Internal Medicine 09/06/22 Paula Reza MD [address] [place] [address] Assigned PCP 09/09/22 01/05/23 Esha Dewitt MD [address] [facility] 36 [place] [address] Assigned Gastroenterology Provider 09/23/22 Valdo Escamilla PA-C [address] [facility] 103 [place] [address] Assigned Neuroscience Provider 09/30/22 Nohelia Abarca PA-C [address]50 [place] [address] Physician Freight Elevator Operator Gastroenterology 10/03/22 Heather Mosquera MD [address]45 [facility] 150 [place] [address] Assigned PCP 01/06/23 Fawad York MD 909 [place] [address] Assigned Musculoskeletal Provider 04/27/23 06/25/23 documented as of this encounter
--- OUTSIDE RECORDS SUMMARY | 2023-09-21 08:34 | XMS_ITS | Encounter Summary ---
Author Organization [facility] Address [address] [place] [address] Care Team Providers Care Lab Courier Name Role Phone Shahida Sutotn APRN PAINTER HAND Primary Care Provi ford Unavailable Shahida Sutton APRN PAINTER HAND Unavailable Un available Carolynn Ramon RN Unavailable [phone] Augustine Callaway MD Unavailable Brady Lion MD Unavailable Un available Nima France-C Unavailable Camille Chandler PA-C Unavailable [phone] Anabela Barakat APRN PAINTER HAND Unavailable Nima France PA-C Unavailable Basilio Morillo DO Unavailable Fawad York MD Unavailable Roopa Almonte MD Unavailable Augustine Callaway MD Unavailable Maryse Burton PA-C Unavailable Marquita Starkey MD Unavailable Roopa Almonte MD Unavailable Griffin Joshi MD Unavailable Rina Magallon RN Unavailable [phone] Paula Reza MD Primary Care Provider [phone] Griffin Joshi MD Unavailable Roopa Almonte MD Unavailable [phone] Basilio Morillo DO Unavailable Lydia Bernstein-C Unavailable Rosa Maria Love Unavailable [phone] Augustine Callaway MD Unavailable Paula Reza MD Unavailable Keerthi Miner APRN PAINTER HAND Unavailable [phone] Herman, Shahida Cummings APRN PAINTER HAND Unavailable Un available Porsha Michaels APRN PAINTER HAND Unavailable [phone] Paula Reza MD Unavailable Shahida Sutton APRN PAINTER HAND Unavailable Un available Daylin Ludwig Unavailable [phone] Laurel Velasquez MD Unavailable [phone] Daylin Ludwig Unavailable [phone] Paula Reza MD Unavailable Porsha Michaels APRN PAINTER HAND Unavailable [phone] Laurel Velasquez MD Unavailable [phone] Shahida Sutton DIAL PAINTER PAINTER HAND Unavailable Un available Marilin Montaño PAINTER HAND Unavailable [phone] Esha Dewitt MD Unavailable [phone] EvelineHeather MD Unavailable [phone] Paula Reza MD Unavailable Esha Dewitt MD Unavailable [phone] Andi Valdo Desouza PA-C Unavailable Nohelia Abarca PA-C Unavailable [phone] Heather Mosquera MD Unavailable Fawad York MD Unavailable [phone] Reason for Visit * Reason Onset Date Comments Appointment 02/11/2020 Encounter Details Date Type Department Care Team (Late st Contact Info) Description 02/11/[address] [phone] Shahida Sutton APRN PAINTER HAND Appointment Social History Tobacco Use Types Packs/Day [...] COVID-19? No / Unsure 02/06/2020 8:12 AM WELCOME HOSTESS documented as of this encounter Miscellaneous Notes * Telephone Encounter - Carolynn Ramon RN - 02/11/2020 12:18 PM WELCOME HOSTESS Shahida Sutton APRN PAINTER HAND FYI - Patient is concerned with his overall mental and physical health Patient is having diarrhea, migraines, pain issues that are ongoing Patient states that due to his mental state yesterday he gave himself an increased dose of insulin on accident - went to the ER (viewable in epic) per ER notes glucose was elevated at each check 256,279, 275, 277,228 (per pot feeder) Patient states that he thinks he needs to take a leave of absence from work. RN scheduled appt with pcp in clinic Next 5 appointments (look out 90 days) Feb 13, 2020 8:15 AM Return Visit with Brady Lion MD [facility] [address] [facility] 140 [facility] [phone] Feb 19, 2020 2:00 PM (Arrive by 1:40 PM) Office Visit with Shahida Sutton APRN CNP [facility] [address] [place] [phone] Carolynn Ramon, Registered Nurse, PAL (Patient Advocate Liason) [facility] [phone] OME HOSTESS * Telephone Encounter - Rachel Lozada - [...] detailed message:No at Home number on file [phone] (home) Rachel Lozada-Patient Rep OME HOSTESS documented in this encounter Plan of Treatment Not on file documented as of this encounter Visit Diagnoses Not on filedocumented in this encounter Additional Health Concerns Infection Onset Date Last Indicated Resolved Time Rule Out COVID-19 02/15/2020 02/15/2020 02/16/2020 2:32 PM WELCOME HOSTESS Rule Out COVID-19 01/05/2021 01/05/2021 01/06/2021 12:57 PM CDT ESBL 01/05/2021 01/05/2021 Rule Out COVID-19 06/30/2021 06/30/2021 07/01/2021 9:34 AM CDT Rule Out COVID-19 07/25/2021 07/25/2021 07/25/2021 8:02 PM CDT Assessment Noted Time PHQ-9 Depression Total Score: 7 08/13/19 20 1:22 PM CDT documented as of this encounter Care Teams Lab Courier Relationship Specialty Start Date End Date Shahida Sutton APRN PAINTER HAND PCP - General Nurse Practitioner 08/17/14 08/04/21 Paula Reza MD [address] [place] [address] PCP - General Internal Medicine 08/05/21 Shahida Sutton APRN PAINTER HAND Assigned PCP 07/12/14 09/30/21 Carolynn Ramon RN Personal Advocate & Liaison (PAL) 12/17/18 08/07/21 [place] [address] [place] [address] Assigned Musculoskeletal Provider 12/26/19 08/21/20 Brady Lion MD Assigned Heart and Vascular Provider 12/26/19 08/14/20 Nima France PA-C [address] [place] [id number] Assigned Surgical Provider 05/19/20 08/21/20 Camille Chandler PA-C [address] [place] [id number] Assigned Neuroscience Provider 05/19/20 09/14/20 Anabela Barakat APRN PAINTER HAND 1700 [place] [address] Assigned Heart and Vascular Provider 08/15/20 08/05/21 Nima France PA-C [address]45 [facility] 450 [place] [address] Assigned Musculoskeletal Provider 08/22/20 11/13/20 [place] [address] [place] [address] Assigned Musculoskeletal Provider 11/14/20 12/04/20 Fawad York MD 9 [place] [address] Assigned Musculoskeletal Provider 12/05/20 02/05/21 Roopa Almonte MD [address] [facility] 200 [place] [address] Endocrinology, Diabetes, and Metabolism 01/19/21 [place] [address] [facility] [place] [address] [place] [address] Assigned Musculoskeletal Provider 02/06/21 09/16/21 Maryse Burton PA-C [address] [place] [address] Physician Shelter Supervisor Dermatology 04/14/21 Marquita Starkey MD [address] [facility] 200 [place], [place] [address] Internal Medicine 05/06/21 05/06/21 Roopa Almonte MD [address] [facility] 200 [place] [address] Hospitalist Endocrinology, Diabetes, and Metabolism 05/30/21 Griffin Joshi MD [address] [place] [address] Cardiovascular Disease 07/25/21 Rina Magallon, RN Lead Commercial Sales Specialist 07/29/21 07/11/22 Griffin Joshi MD [address] [place] [address] Assigned Heart and Vascular Provider 08/06/21 10/07/21 Roopa Almonte MD [address] [facility] 200 [place], [place] [address] Assigned Endocrinology Provider 09/10/21 [place] [address] [facility] [place] [address] Assigned Musculoskeletal Provider 09/17/21 10/14/21 Lydia Bernstein PA-C [address] [place] [address] Assigned PCP 10/01/21 10/21/21 Rosa Maria Love CHW Community Health Worker 10/06/21 07/11/22 [place] [address] [place] [address] Assigned Musculoskeletal Provider 10/15/21 04/26/23 Paula Reza MD [address] [place] [address] Assigned PCP 10/22/21 12/23/21 Keerthi Miner APRN PAINTER HAND [address] [place] [address] Assigned Heart and Vascular Provider 10/08/21 02/10/22 Shahida Sutton APRN PAINTER HAND Assigned PCP 12/24/21 03/24/22 Porsha Michaels APRN PAINTER HAND [address] [place] [address] Assigned Heart and Vascular Provider 02/11/22 05/12/22 Paula Reza MD [address] [place] [address] Assigned PCP 03/25/22 04/07/22 Shahida Sutton APRN PAINTER HAND [address] [place] [address] Assigned PCP 04/08/22 06/30/22 Daylin Ludwig EP [facility] [address] [place] [address] Cardiac Rehabilitation Therapist 05/16/23 Laurel Velasquez MD [address] [place] [address] Assigned Heart and Vascular Provider 05/13/22 06/30/22 Daylin Ludwig EP [facility] [address] [place] [address] Cardiac Rehabilitation Therapist 06/08/22 06/09/23 Paula Reza MD [address] [facility] [address] [place], [place] [address] Assigned PCP 07/01/22 07/07/22 Porsha Michaels APRN PAINTER HAND [address] [place] [address] Assigned Heart and Vascular Provider 07/01/22 07/07/22 Laurel Velasquez MD [address] [place] [address] Assigned Heart and Vascular Provider 07/08/22 08/04/22 Shahida Sutton APRN PAINTER HAND Assigned PCP 07/08/22 09/08/22 Marilin Montaño, PAINTER HAND [address] [place] [address] Assigned Heart and Vascular Provider 08/05/22 Esha Dewitt MD [address] [place] [address] 36 [place], [place] [address] Gastroenterology 09/06/22 Heather Mosquera MD [address] [place] [address] Internal Medicine 09/06/22 Paula Reza MD [address] [place] [address] Assigned PCP 09/09/22 01/05/23 Esha Dewitt MD [address] [facility] 36 [place], [place] [address] Assigned Gastroenterology Provider 09/23/22 Valdo Escamilla PA-C [address] [facility] [address] [place], [place] [address] Assigned Neuroscience Provider 09/30/22 Nohelia Abarca PA-C [address] [place], [place] [address] Physician Shelter Supervisor Gastroenterology 10/03/22 Heather Mosquera MD [address] [place], [place] [address] Assigned PCP 01/06/23 Fawad York MD [address] [place], [place] [address] Assigned Musculoskeletal Provider 04/27/23 06/25/23 documented as of this encounter
--- OUTSIDE RECORDS SUMMARY | 2023-09-21 08:34 | XMS_ITS | Encounter Summary ---
Author Organization [facility] Address [address] [place] [address] Care Team Providers Care Metal Moulder Name Role Phone Shahida Sutton APRN DIRECTOR DIGITAL ANALYTICS Primary Care Provi ford Unavailable Shahida Sutton APRN DIRECTOR DIGITAL ANALYTICS Unavailable Un available Carolynn Ramon RN Unavailable Augustine Callaway MD Unavailable Brady Lion MD Unavailable Un available Nima France-C Unavailable Camille Chandler PA-C Unavailable [phone] Anabela Barakat APRN DIRECTOR DIGITAL ANALYTICS Unavailable Nima France PA-C Unavailable Basilio Morillo DO Unavailable Fawad York MD Unavailable Roopa Almonte MD Unavailable Augustine Callaway MD Unavailable Maryse Burton PA-C Unavailable Marquita Starkey MD Unavailable Roopa Almonte MD Unavailable Griffin Joshi MD Unavailable Rina Magallon RN Unavailable [phone] Paula Reza MD Primary Care Provider [phone] Girffin Joshi MD Unavailable Roopa Almonte MD Unavailable [phone] Basilio Morillo DO Unavailable Lydia Bernstein-C Unavailable Rosa Maria Love Unavailable [phone] Augustine Callaway MD Unavailable Paula Reza MD Unavailable Keerthi Miner APRN DIRECTOR DIGITAL ANALYTICS Unavailable [phone] Herman, Shahida Cummings APRN DIRECTOR DIGITAL ANALYTICS Unavailable Un available Porsha Michaels APRN DIRECTOR DIGITAL ANALYTICS Unavailable [phone] Paula Reza MD Unavailable Shahida Sutton APRN DIRECTOR DIGITAL ANALYTICS Unavailable Un available Daylin Ludwig Unavailable [phone] Laurel Velasquez MD Unavailable [phone] Daylin Ludwig Unavailable [phone] Paula Reza MD Unavailable Porsha Michaels APRN DIRECTOR DIGITAL ANALYTICS Unavailable [phone] Laurel Velasquez MD Unavailable [phone] Shahida Sutton MAINTENANCE MACHINIST DIRECTOR DIGITAL ANALYTICS Unavailable Un available Marilin Montaño DIRECTOR DIGITAL ANALYTICS Unavailable [phone] Esha Dewitt MD Unavailable [phone] EvelineHeather MD Unavailable [phone] Paula Reza MD Unavailable Esha Dewitt MD Unavailable [phone] Valdo Escamilla PA-C Unavailable [phone] Nohelia Abarca PA-C Unavailable [phone] Heather Mosquera MD Unavailable Fawad York MD Unavailable [phone] Encounter Details Date Type Department Care Team (Late st Contact Info) Description 02/10/2020 [facility] [address] [place] [phone] Rina Winkler RN Social History Tobacco Use [...] COVID-19? No / Unsure 02/06/2020 8:12 AM ACID STRENGTH INSPECTOR documented as of this encounter Plan of Treatment Not on file documented as of this encounter Visit Diagnoses Not on filedocumented in this encounter Additional Health Concerns Infection Onset Date Last Indicated Resolved Time Rule Out COVID-19 02/15/2020 02/15/2020 02/16/2020 2:32 PM ACID STRENGTH INSPECTOR Rule Out COVID-19 01/05/2021 01/05/2021 01/06/2021 12:57 PM CDT ESBL 01/05/2021 01/05/2021 Rule Out COVID-19 06/30/2021 06/30/2021 07/01/2021 9:34 AM CDT Rule Out COVID-19 07/25/2021 07/25/2021 07/25/2021 8:02 PM CDT Assessment Noted Time PHQ-9 Depression Total Score: 7 08/13/19 20 1:22 PM CDT documented as of this encounter Care Teams Metal Moulder Relationship Specialty Start Date End Date Shahida Sutton APRN DIRECTOR DIGITAL ANALYTICS PCP - General Nurse Practitioner 08/17/14 08/04/21 Paula Reza MD [address] [facility] [address] [place] [address] PCP - General Internal Medicine 08/05/21 Shahida Sutton APRN DIRECTOR DIGITAL ANALYTICS Assigned PCP 07/12/14 09/30/21 Carolynn Ramon RN Personal Advocate & Liaison (PAL) 12/17/18 08/07/21 [place] [address] [place] [address] Assigned Musculoskeletal Provider 12/26/19 08/21/20 Brady Lion MD Assigned Heart and Vascular Provider 12/26/19 08/14/20 Nima France PA-C [address] [place] [address] Assigned Surgical Provider 05/19/20 08/21/20 Camille Chandler PA-C [address] [place] [id number] Assigned Neuroscience Provider 05/19/20 09/14/20 Anabela Barakat APRN DIRECTOR DIGITAL ANALYTICS [address] [place] [address] Assigned Heart and Vascular Provider 08/15/20 08/05/21 Nima France PA-C [address] [facility] [address] [place] [address] Assigned Musculoskeletal Provider 08/22/20 11/13/20 [place] [address] [facility] [place], [place] [address] Assigned Musculoskeletal Provider 11/14/20 12/04/20 Fawad York MD [address] [place], [place] [address] Assigned Musculoskeletal Provider 12/05/20 02/05/21 Roopa Almonte MD [address] [facility] 200 [place] [address] Endocrinology, Diabetes, and Metabolism 01/19/21 [place] [address] [facility] [address] [place] [address] Assigned Musculoskeletal Provider 02/06/21 09/16/21 Maryse Burton PA-C [address] [place] [address] Physician Psychiatric Orderly Dermatology 04/14/21 Marquita Starkey MD [address] [facility] [address] [place], [place] [address] Internal Medicine 05/06/21 05/06/21 Roopa Almonte MD [address] [facility] [address] [place], [place] [address] Hospitalist Endocrinology, Diabetes, and Metabolism 05/30/21 Griffin Joshi MD [address] [facility] [address] [place] [address] Cardiovascular Disease 07/25/21 Rina Magallon, RN Lead Cold Type Artist 07/29/21 07/11/22 Griffin Joshi MD [address] [place] [address] Assigned Heart and Vascular Provider 08/06/21 10/07/21 Roopa Almonte MD [address] [facility] 200 [place] [address] Assigned Endocrinology Provider 09/10/21 [place] [address] [facility] [place] [address] Assigned Musculoskeletal Provider 09/17/21 10/14/21 Lydia Bernstein PA-C [address] [facility] [address] [place] [address] Assigned PCP 10/01/21 10/21/21 Rosa Maria Love CHW Community Health Worker 10/06/21 07/11/22 [place] [address] [address] [facility] [address] [place] [address] Assigned Musculoskeletal Provider 10/15/21 04/26/23 Paula Reza MD [address] [place] [address] Assigned PCP 10/22/21 12/23/21 Keerthi Miner APRN DIRECTOR DIGITAL ANALYTICS [address] [place] [address] Assigned Heart and Vascular Provider 10/08/21 02/10/22 Shahida Sutton APRN DIRECTOR DIGITAL ANALYTICS Assigned PCP 12/24/21 03/24/22 Porsha Michaels APRN DIRECTOR DIGITAL ANALYTICS [address] [place] [address] Assigned Heart and Vascular Provider 02/11/22 05/12/22 Paula Reza MD [address] [place] [address] Assigned PCP 03/25/22 04/07/22 Shahida Sutton APRN DIRECTOR DIGITAL ANALYTICS [address] [place] [address] Assigned PCP 04/08/22 06/30/22 Daylin Ludwig, EP [facility] [address] [place] [address] Cardiac Rehabilitation Therapist 05/16/23 Laurel Velasquez MD [address] [place] [address] Assigned Heart and Vascular Provider 05/13/22 06/30/22 Daylin Ludwig, EP [facility] [address] [place] [address] Cardiac Rehabilitation Therapist 06/08/22 06/09/23 Paula Reza MD [address] [place], [place] [address] Assigned PCP 07/01/22 07/07/22 Porsha Michaels APRN DIRECTOR DIGITAL ANALYTICS [address] [place] [address] Assigned Heart and Vascular Provider 07/01/22 07/07/22 Laurel Velasquez MD [address] [place] [address] Assigned Heart and Vascular Provider 07/08/22 08/04/22 Shahida Sutton APRN DIRECTOR DIGITAL ANALYTICS Assigned PCP 07/08/22 09/08/22 Marilin Montaño, DIRECTOR DIGITAL ANALYTICS [address] [place] [address] Assigned Heart and Vascular Provider 08/05/22 Esha Dewitt MD [address] [place] [address] [id number] Gastroenterology 09/06/22 Heather Mosquera MD [address] [place] [address] Internal Medicine 09/06/22 Paula Reza MD [address] [place] [address] Assigned PCP 09/09/22 01/05/23 Esha Dewitt MD [address] [facility] 36 [place], [place] [address] Assigned Gastroenterology Provider 09/23/22 Valdo Escamilla PA-C [address] [facility] [address] [place] [address] Assigned Neuroscience Provider 09/30/22 Nohelia Abarca PA-C [address] [place] [address] Physician Psychiatric Orderly Gastroenterology 10/03/22 Heather Mosquera MD [address] [place] [address] Assigned PCP 01/06/23 Fawad York MD [address] [place], [place] [address] Assigned Musculoskeletal Provider 04/27/23 06/25/23 documented as of this encounter
--- OUTSIDE RECORDS SUMMARY | 2023-09-21 08:34 | XMS_ITS | Encounter Summary ---
Author Organization [facility] Address [address] [place] [address] Care Team Providers Care Tricot Knitter Name Role Phone Shahida Sutton APRN CHIEF SPECIALIST LEED Primary Care Provi ford Unavailable Shahida Sutton APRN CHIEF SPECIALIST LEED Unavailable Un available Carolynn Ramon RN Unavailable Augustine Callaway MD Unavailable Brady Lion MD Unavailable Un available Nima France-C Unavailable Camille Chandler PA-C Unavailable [phone] Anabela Barakat APRN CHIEF SPECIALIST LEED Unavailable Nima France PA-C Unavailable Basilio Morillo DO Unavailable Fawad York MD Unavailable [phone] Roopa Almonte MD Unavailable Augustine Callaway MD Unavailable Maryse Burton PA-C Unavailable [phone] Marquita Starkey MD Unavailable Roopa Almonte MD Unavailable Griffin Joshi MD Unavailable Rina Magallon RN Unavailable [phone] Paula Reza MD Primary Care Provider [phone] Griffin Joshi MD Unavailable Roopa Almonte MD Unavailable [phone] Basilio Morillo DO Unavailable Lydia Bernstein-C Unavailable Rosa Maria Love Unavailable [phone] Augustine Callaway MD Unavailable Paula Reza MD Unavailable Keerthi Miner APRN CHIEF SPECIALIST LEED Unavailable [phone] Herman, Shahida Cummings APRN CHIEF SPECIALIST LEED Unavailable Un available Porsha Michaels APRN CHIEF SPECIALIST LEED Unavailable [phone] Paula Reza MD Unavailable Shahida Sutton APRN CHIEF SPECIALIST LEED Unavailable Un available Daylin Ludwig Unavailable [phone] Laurel Velasquez MD Unavailable [phone] Daylin Ludwig Unavailable [phone] Paula Reza MD Unavailable Porsha Michaels APRN CHIEF SPECIALIST LEED Unavailable [phone] Laurel Velasquez MD Unavailable [phone] Shahida Sutton TEACHING FELLOW CHIEF SPECIALIST LEED Unavailable Un available Marilin Montaño CHIEF SPECIALIST LEED Unavailable [phone] Esha Dewitt MD Unavailable [phone] EvelineHeather MD Unavailable [phone] Paula Reza MD Unavailable Esha Dewitt MD Unavailable [phone] Valdo Escamilla PA-C Unavailable Nohelia Abarca PA-C Unavailable [phone] Heather Mosquera MD Unavailable Fawad York [...] COVID-19? No / Unsure 05/03/2020 9:33 AM MEDICAL LAB DIRECTOR documented as of this encounter Plan of [...] documented as of this encounter Care Teams Tricot Knitter Relationship Specialty Start Date End Date Shahida Sutton APRN CHIEF SPECIALIST LEED PCP - General Nurse Practitioner 6/15/15 6/2/22 Paula Reza MD [address] [facility] 200 [place] [address] PCP - General Internal Medicine 08/05/21 Shahida Sutton APRN CHIEF SPECIALIST LEED Assigned PCP 07/12/14 09/30/21 Carloynn Ramon RN Personal Advocate & Liaison (PAL) 12/17/18 08/07/21 [place] [address] [place] [address] Assigned Musculoskeletal Provider 12/26/19 08/21/20 Brady Lion MD Assigned Heart and Vascular Provider 12/26/19 08/14/20 Nima France PA-C [address] [place] [address] Assigned Surgical Provider 05/19/20 08/21/20 Camille Chandler PA-C [address] [facility] S [facility] [address] [place] [address] Assigned Neuroscience Provider 05/19/20 09/14/20 Anabela Barakat APRN CHIEF SPECIALIST LEED [address] [place] [address] Assigned Heart and Vascular Provider 08/15/20 08/05/21 Nima France PA-C [address] [place] [address] Assigned Musculoskeletal Provider 08/22/20 11/13/20 [place] [address] [facility] [place] [address] Assigned Musculoskeletal Provider 11/14/20 12/04/20 Fawad York MD [address] [place] [address] Assigned Musculoskeletal Provider 12/05/20 02/05/21 Roopa Almonte MD [address] [facility] 200 [place] [address] Endocrinology, Diabetes, and Metabolism 01/19/21 [place] [address] [facility] 300 [place] [address] Assigned Musculoskeletal Provider 02/06/21 09/16/21 Maryse Burton, PA-C [address] [place] [address] Physician Core Worker Dermatology 04/14/21 Marquita Starkey MD [address] [facility] 200 [place] [address] Internal Medicine 05/06/21 05/06/21 Roopa Almonte MD [address] [facility] 200 [place] [address] Hospitalist Endocrinology, Diabetes, and Metabolism 05/30/21 Griffin Joshi MD [address] [facility] [address] [place] [address] Cardiovascular Disease 07/25/21 Rina Magallon, RN Lead Oracle Soa Developer 07/29/21 07/11/22 Griffin Joshi MD [address] [place] [address] Assigned Heart and Vascular Provider 08/06/21 10/07/21 Roopa Almonte MD [address] [facility] 200 [place], [place] [address] Assigned Endocrinology Provider 09/10/21 [place] [address] [facility] [place] [address] Assigned Musculoskeletal Provider 09/17/21 10/14/21 Lydia Bernstein PA-C [address] [place] [address] Assigned PCP 10/01/21 10/21/21 Rosa Maria Love Cristina Community Health Worker 10/06/21 07/11/22 [place] [address] [address] [facility] [address] [place] [address] Assigned Musculoskeletal Provider 10/15/21 04/26/23 Paula Reza MD [address] [facility] 200 [place] [address] Assigned PCP 10/22/21 12/23/21 Keerthi Miner APRN CHIEF SPECIALIST LEED [address] [place] [address] Assigned Heart and Vascular Provider 10/08/21 02/10/22 Shahida Sutton APRN CHIEF SPECIALIST LEED Assigned PCP 12/24/21 03/24/22 Porsha Michaels APRN CHIEF SPECIALIST LEED [address] [place] [address] Assigned Heart and Vascular Provider 02/11/22 05/12/22 Paula Reza MD [address] [place] [address] Assigned PCP 03/25/22 04/07/22 Shahida Sutton APRN CHIEF SPECIALIST LEED [address] [place] [address] Assigned PCP 04/08/22 06/30/22 Daylin Ludwig, EP [facility] [address] [place] [address] Cardiac Rehabilitation Therapist 05/16/23 Laurel Velasquez MD [address] [place] [address] Assigned Heart and Vascular Provider 05/13/22 06/30/22 Daylin Ludwig, EP [facility] [address] [place] [place] [address] Cardiac Rehabilitation Therapist 06/08/22 06/09/23 Paula Reza MD [address] [place], [place] [address] Assigned PCP 07/01/22 07/07/22 Porsha Michaels APRN CHIEF SPECIALIST LEED [address] [place] [address] Assigned Heart and Vascular Provider 07/01/22 07/07/22 Laurel Velasquez MD [address] [place] [address] Assigned Heart and Vascular Provider 07/08/22 08/04/22 Shahida Sutton APRN CHIEF SPECIALIST LEED Assigned PCP 07/08/22 09/08/22 Marilin Montaño, CHIEF SPECIALIST LEED [address] [place] [address] Assigned Heart and Vascular Provider 08/05/22 Esha Dewitt MD [address] [address] Gastroenterology 09/06/22 Heather Mosquera MD [address] [place] [address] Internal Medicine 09/06/22 Paula Reza MD [address] [facility] 200 [place], [place] [address] Assigned PCP 09/09/22 01/05/23 Esha Dewitt MD [address] [facility] 36 [place] [address] Assigned Gastroenterology Provider 09/23/22 Valdo Escamilla PA-C [address] [facility] [address] [place] [address] Assigned Neuroscience Provider 09/30/22 Nohelia Abarca PA-C [address] [facility] [place] [address] Physician Core Worker Gastroenterology 10/03/22 Heather Mosquera MD [address] [place] [address] Assigned PCP 01/06/23 Fawad York MD [address] [place], [place] [address] Assigned Musculoskeletal Provider 04/27/23 06/25/23 documented as of this encounter
--- OUTSIDE RECORDS SUMMARY | 2023-09-21 08:35 | XMS_ITS | Encounter Summary ---
Author Organization [facility] [place] Address [address] [place] [address] Care Team Providers Care Circuit Court Clerk Name Role Phone HermanShahida huerta APRN IMMIGRATION CONSULTANT Primary Care Provi ford Unavailable Herman, Shahida Cummings APRN IMMIGRATION CONSULTANT Unavailable Un available Herman, Shahida Cummings APRN IMMIGRATION CONSULTANT Unavailable Un available Carolynn Ramon RN Unavailable [phone] Augustine Callaway MD Unavailable Brady Lion MD Unavailable Un available Nima France-C Unavailable [phone] Camille Chandler PA-C Unavailable [phone] Anabela Barakat APRN IMMIGRATION CONSULTANT Unavailable Nima France PA-C Unavailable Basilio Morillo DO Unavailable Fawad York MD Unavailable [phone] Roopa Almonte MD Unavailable [phone] Augustine Callaway MD Unavailable Maryse Burton PA-C Unavailable Marquita Starkey MD Unavailable Roopa Almonte MD Unavailable [phone] Griffin Joshi MD Unavailable Rina Magallon RN Unavailable [phone] Paula Reza MD Primary Care Provider [phone] Griffin Joshi MD Unavailable Roopa Almonte MD Unavailable [phone] [facility] Basilio Naik Unavailable Lydia Bernstein PA-C Unavailable Rosa Maria Love Unavailable [phone] Augustine Callaway MD Unavailable Paula Reza MD Unavailable Keerthi Miner APRN IMMIGRATION CONSULTANT Unavailable [phone] Herman, Shahida Cummings APRN IMMIGRATION CONSULTANT Unavailable Un available Porsha Michaels APRN IMMIGRATION CONSULTANT Unavailable [phone] Paula Reza MD Unavailable Herman, Shahida Cummings APRN IMMIGRATION CONSULTANT Unavailable Un available Daylin Ludwig Unavailable [phone] Laurel Velasquez MD Unavailable [phone] Daylin Ludwig Unavailable [phone] Paula Reza MD Unavailable Porsha Michaels APRN IMMIGRATION CONSULTANT Unavailable [phone] Laurel Velasquez MD Unavailable [phone] Herman, Shahida Cummings APRN IMMIGRATION CONSULTANT Unavailable Un available Marilin Montaño IMMIGRATION CONSULTANT Unavailable [phone] Esha Dewitt MD Unavailable Heather Mosquera MD Unavailable [phone] Paula Reza MD Unavailable Esha Dewitt MD Unavailable [phone] Valdo Escamilla PA-C Unavailable [phone] Nohelia Abarca PA-C Unavailable [phone] Heather Mosquera MD Unavailable Fawad York MD Unavailable [phone] Reason for Visit * Reason Onset Date Comments Refill Request 03/26/2017 Encounter Details Date Type Department Care Team (Late st Contact Info) Description 03/26/2017 MyC Refill [address] [address] Shahida Sutton APRN IMMIGRATION CONSULTANT Refill Request Social History Tobacco Use Types [...] because: Drug not on the [facility] refill protocol Judith Green RN, BS Clinical Nurse Triage. JACK WORKER * Telephone Encounter - Judith Green RN - 03/28/2017 8:16 AM CST Disp Refills Start End TRISTON cyclobenzaprine (FLEXERIL) 10 MG tablet 60 tablet 0 01/15/2017 No Sig: TAKE 1 TABLET(10 MG) BY MOUTH THREE TIMES DAILY NEEDED FOR MUSCLE SPASMS Last OV: 03.02.17 JACK WORKER * Telephone Encounter - Judith Green RN - 03/28/2017 8:15 AM CSTMessage [facility] Original authorizing provider: DUANE Payton CNP would like a refill of the following medications: cyclobenzaprine (FLEXERIL) 10 MG tablet [Shahida Sutton APRN CNP] Preferred pharmacy: [facility] [address] [place] [address] [address] Comment: JACK WORKER documented in this encounter Plan of Treatment Not on file documented as of this encounter Visit Diagnoses Diagnosis Cervicalgia Radicular pain in right arm Neuralgia, neuritis, and radiculitis, unspecified documented in this encounter Additional Health Concerns Infection Onset Date Last Indicated Resolved Time Rule Out COVID-19 02/15/2020 02/15/2020 02/16/2020 2:32 PM 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 WORKER Rule Out COVID-19 01/05/2021 01/05/2021 01/06/2021 12:57 PM CDT ESBL 01/05/2021 01/05/2021 Rule Out COVID-19 06/30/2021 06/30/2021 07/01/2021 9:34 AM CDT Rule Out COVID-19 07/25/2021 07/25/2021 07/25/2021 8:02 PM CDT Assessment Noted Time PHQ-9 Depression Total Score: 6 02/03/20 17 10:57 AM GRAB JACK WORKER documented as of this encounter Care Teams Circuit Court Clerk Relationship Specialty Start Date End Date Shahida Sutton APRN CNP PCP - General Nurse Practitioner 08/17/14 08/04/21 Shahida Sutton APRN CNP PCP - Assigned PCP 07/12/14 05/07/18 Paula Reza MD [address] [place] [address] PCP - General Internal Medicine 08/05/21 Shahida Sutton APRN IMMIGRATION CONSULTANT Assigned PCP 07/12/14 09/30/21 Carolynn Ramon, KASIE Personal Advocate & Liaison (PAL) 12/17/18 08/07/21 [place] [address] [place] [address] Assigned Musculoskeletal Provider 12/26/19 08/21/20 Brady Lion MD Assigned Heart and Vascular Provider 12/26/19 08/14/20 Nima France PA-C [address] [place] [address] Assigned Surgical Provider 05/19/20 08/21/20 Camille Chandler PA-C [address] [place] [address] Assigned Neuroscience Provider 05/19/20 09/14/20 Anabela Barakat APRN IMMIGRATION CONSULTANT [address] [place] [address] Assigned Heart and Vascular Provider 08/15/20 08/05/21 Nima France PA-C [address] [place] [address] Assigned Musculoskeletal Provider 08/22/20 11/13/20 Ilia Basilio Naik [address] [facility] [place] [address] Assigned Musculoskeletal Provider 11/14/20 12/04/20 Fawad York MD [address] [place], [place] [address] Assigned Musculoskeletal Provider 12/05/20 02/05/21 Roopa Almonte MD [address] [facility] 200 [place] [address] Endocrinology, Diabetes, and Metabolism 01/19/21 [place] [address] [facility] [address] [place] [address] Assigned Musculoskeletal Provider 02/06/21 09/16/21 Maryse Burton PA-C [address] [place] [address] Physician Densitometer Reader Dermatology 04/14/21 Marquita Starkey MD [address] [facility] 200 [place] [address] Internal Medicine 05/06/21 05/06/21 Roopa Almonte MD [address] [facility] [address] [place] [address] Hospitalist Endocrinology, Diabetes, and Metabolism 05/30/21 Griffin Joshi MD [address] [facility] [address] [place] [address] Cardiovascular Disease 07/25/21 Rina Magallon, RN Lead Maintenance Shop Welder 07/29/21 07/11/22 Griffin Joshi MD [address] [place] [address] Assigned Heart and Vascular Provider 08/06/21 10/07/21 Roopa Almonte MD [address] [facility] [address] [place], [place] [address] Assigned Endocrinology Provider 09/10/21 [place] [address] [facility] [place] [address]69 Assigned Musculoskeletal Provider 09/17/21 10/14/21 Lydia Bernstein PA-C [address] [place] [address] Assigned PCP 10/01/21 10/21/21 Rosa Maria Love CHW Community Health Worker 10/06/21 07/11/22 [place] [address] [facility] [address] [place] [address] Assigned Musculoskeletal Provider 10/15/21 04/26/23 Paula Reza MD [address] [facility] [address] [place], [place] [address] Assigned PCP 10/22/21 12/23/21 Keerthi Miner APRN IMMIGRATION CONSULTANT [address] [place] [address] Assigned Heart and Vascular Provider 10/08/21 02/10/22 Shahida Sutton APRN IMMIGRATION CONSULTANT Assigned PCP 12/24/21 03/24/22 Porsha Michaels APRN IMMIGRATION CONSULTANT [address] [place] [address] Assigned Heart and Vascular Provider 02/11/22 05/12/22 Paula Reza MD [address] [place] [address] Assigned PCP 03/25/22 04/07/22 Shahida Sutton APRN IMMIGRATION CONSULTANT [address] [place] [address] Assigned PCP 04/08/22 06/30/22 Daylin Ludwig, EP [facility] [address] [place] [address] Cardiac Rehabilitation Therapist 05/16/23 Laurel Velasquez MD [address] [place] [address] Assigned Heart and Vascular Provider 05/13/22 06/30/22 Daylin Ludwig, EP [facility] [address] [place] [address] Cardiac Rehabilitation Therapist 06/08/22 06/09/23 Paula Reza MD [address] [place] [address] Assigned PCP 07/01/22 07/07/22 Porsha Michaels APRN IMMIGRATION CONSULTANT [address] [place] [address] Assigned Heart and Vascular Provider 07/01/22 07/07/22 Laurel Velasquez MD [address] [place] [address] Assigned Heart and Vascular Provider 07/08/22 08/04/22 Shahida Sutton, DUANE IMMIGRATION CONSULTANT Assigned PCP 07/08/22 09/08/22 Marilin Montaño, IMMIGRATION CONSULTANT [address] [place] [address] Assigned Heart and Vascular Provider 08/05/22 Esha Dewitt MD [address] [address] MD Gastroenterology 09/06/22 Heather Mosquera MD [address] [place] [address] Internal Medicine 09/06/22 Paula Reza MD [address] [facility] [address] [place], [place] [address] Assigned PCP 09/09/22 01/05/23 Esha Dewitt MD [address] [address] Assigned Gastroenterology Provider 09/23/22 Valdo Escamilla PA-C [address] [place] [address] Assigned Neuroscience Provider 09/30/22 Nohelia Abarca PA-C [address] [place] [address] Physician Densitometer Reader Gastroenterology 10/03/22 Heather Mosquera MD [address] [facility] 150 [place] [address] Assigned PCP 01/06/23 Fawad York MD [address] [place], [place] [address] Assigned Musculoskeletal Provider 04/27/23 06/25/23 documented as of this encounter
--- OUTSIDE RECORDS SUMMARY | 2023-09-21 08:35 | XMS_ITS | Encounter Summary ---
Author Organization [place] Address [address] [place] [address] Care Team Providers Care Director Of Food And Nutrition Name Role Phone Shahida Sutton APRN FRONT OFFICE SUPERVISOR Primary Care Provi ford Unavailable Shahida Sutton APRN FRONT OFFICE SUPERVISOR Unavailable Un available Carolynn Ramon RN Unavailable Augustine Callaway MD Unavailable Brady Lion MD Unavailable Un available Nima France-C Unavailable Camille Chandler PA-C Unavailable [phone] Anabela Barakat APRN FRONT OFFICE SUPERVISOR Unavailable Nima France PA-C Unavailable Basilio Morillo DO Unavailable Fawad York MD Unavailable [phone] Roopa Almonte MD Unavailable Augustine Callaway MD Unavailable Maryse Burton PA-C Unavailable [phone] Marquita Starkey MD Unavailable [phone] Roopa Almonte MD Unavailable Griffin Joshi MD Unavailable Rina Magallon RN Unavailable [phone] Paula Reza MD Primary Care Provider [phone] Griffin Joshi MD Unavailable Roopa Almonte MD Unavailable [phone] Basilio Morillo DO Unavailable Lydia Bernstein-C Unavailable Rosa Maria Love Unavailable [phone] Augustine Callaway MD Unavailable Paula Reza MD Unavailable Keerthi Miner APRN FRONT OFFICE SUPERVISOR Unavailable [phone] Herman, Shahida Cummings APRN FRONT OFFICE SUPERVISOR Unavailable Un available Porsha Michaels APRN FRONT OFFICE SUPERVISOR Unavailable [phone] Paula Reza MD Unavailable Shahida Sutton APRN FRONT OFFICE SUPERVISOR Unavailable Un available Daylin Ludwig Unavailable [phone] Laurel Velasquez MD Unavailable [phone] Daylin Ludwig Unavailable [phone] Paula Reza MD Unavailable Porsha Michaels APRN FRONT OFFICE SUPERVISOR Unavailable [phone] Laurel Velasquez MD Unavailable [phone] Shahida Sutton WINE BLENDER FRONT OFFICE SUPERVISOR Unavailable Un available Marilin Montaño FRONT OFFICE SUPERVISOR Unavailable [phone] Esha Dewitt MD Unavailable [phone] EvelineHeather MD Unavailable [phone] Paula Reza MD Unavailable Esha Dewitt MD Unavailable [phone] Andi Valdo Desouza PA-C Unavailable Nohelia Abarca PA-C Unavailable [phone] Heather Mosquera MD Unavailable Fawad York MD Unavailable Reason for Visit * Reason Onset Date Comments Medication Question 06/27/2019 SE of botox neck pain and spasms Encounter Details Date Type Department Care Team (Late st Contact Info) Description 06/27/[address] [address] Shahida Sutton APRN CNP Medication [...] 06/30/2019 8:31 AM CDT Shahida Sutton APRN FRONT OFFICE SUPERVISOR Please see update below Neck spasms - [...] him in clinic Carolynn Ramon Registered Nurse [facility] * Telephone Encounter - Shahida Sutton APRN [...] Carmen Jacinto RN * Telephone Encounter - Christainne Tejada - 06/27/2019 9:35 AM CDT Symptoms [...] message? No at Home number on file [phone] (home) Christianne Tejada Patient Cdc Associate documented in this encounter Plan of Treatment Not on file documented as of this encounter Visit Diagnoses Not on filedocumented in this encounter Additional Health Concerns Infection Onset Date Last Indicated Resolved Time Rule Out COVID-19 02/15/2020 02/15/2020 02/16/2020 2:32 PM JOY OPERATOR Rule Out COVID-19 01/05/2021 01/05/2021 01/06/2021 12:57 PM CDT ESBL 01/05/2021 01/05/2021 Rule Out COVID-19 06/30/2021 06/30/2021 07/01/2021 9:34 AM CDT Rule Out COVID-19 07/25/2021 07/25/2021 07/25/2021 8:02 PM CDT Assessment Noted Time PHQ-9 Depression Total Score: 6 12/21/19 18 7:06 AM CDT documented as of this encounter Care Teams Director Of Food And Nutrition Relationship Specialty Start Date End Date Shahida Sutton APRN FRONT OFFICE SUPERVISOR PCP - General Nurse Practitioner 08/17/14 08/04/21 Paula Reza MD [address] [address] PCP - General Internal Medicine 08/05/21 Shahida Sutton APRN FRONT OFFICE SUPERVISOR Assigned PCP 07/12/14 09/30/21 Carolynn Ramon, KASIE Personal Advocate & Liaison (PAL) 12/17/18 08/07/21 [place] [address] [place] [address] Assigned Musculoskeletal Provider 12/26/19 08/21/20 Brady Lion MD Assigned Heart and Vascular Provider 12/26/19 08/14/20 Nima France PA-C [address] [place] [address] Assigned Surgical Provider 05/19/20 08/21/20 Camille Chandler PA-C [address] [place] [address] Assigned Neuroscience Provider 05/19/20 09/14/20 Anabela Barakat APRN FRONT OFFICE SUPERVISOR [address] [place] [address] Assigned Heart and Vascular Provider 08/15/20 08/05/21 Nima France PA-C [address] [place] [address] Assigned Musculoskeletal Provider 08/22/20 11/13/20 [place] [address] [facility] [place] [address] Assigned Musculoskeletal Provider 11/14/20 12/04/20 Fawad York MD [address] [place], [place] [address] Assigned Musculoskeletal Provider 12/05/20 02/05/21 Roopa Almonte MD [address] [facility] 200 [place] [address] Endocrinology, Diabetes, and Metabolism 01/19/21 [place] [address] [facility] 300 [place] [address] Assigned Musculoskeletal Provider 02/06/21 09/16/21 Maryse Burton PA-C [address] [place] [address] Physician Parasitologist Dermatology 04/14/21 Marquita Starkey MD [address] [facility] 200 [place] [address] Internal Medicine 05/06/21 05/06/21 Roopa Almonte MD [address] [facility] [address] [place] [address] Hospitalist Endocrinology, Diabetes, and Metabolism 05/30/21 Griffin Joshi MD [address] [place] [address] Cardiovascular Disease 07/25/21 Rina Magallon, RN Lead General Utility 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 07/29/21 07/11/22 Griffin Joshi MD [address] [place] [address] Assigned Heart and Vascular Provider 08/06/21 10/07/21 Roopa Almonte MD [address] [place] [address] 200 [place], [place] [address] Assigned Endocrinology Provider 09/10/21 [place] [address] [facility] [place] [address] Assigned Musculoskeletal Provider 09/17/21 10/14/21 Lydia Bernstein PA-C [address] [place] [address] Assigned PCP 10/01/21 10/21/21 Rosa Maria Love Cristina Community Health Worker 10/06/21 07/11/22 [place] [address] [facility] [address] [place], [place] [address] Assigned Musculoskeletal Provider 10/15/21 04/26/23 Paula Reza MD [address] [facility] 200 [place], [place] [address] Assigned PCP 10/22/21 12/23/21 Keerthi Miner APRN FRONT OFFICE SUPERVISOR [address] [place] [address] Assigned Heart and Vascular Provider 10/08/21 02/10/22 Shahida Sutton APRN FRONT OFFICE SUPERVISOR Assigned PCP 12/24/21 03/24/22 Porsha Michaels APRN FRONT OFFICE SUPERVISOR [address] [place] [address] Assigned Heart and Vascular Provider 02/11/22 05/12/22 Paula Reza MD [address] [place] [address] Assigned PCP 03/25/22 04/07/22 Shahida Sutton, WINE BLENDER FRONT OFFICE SUPERVISOR [address] [place] [address] Assigned PCP 04/08/22 06/30/22 Daylin Ludwig EP [facility] [address] [place] [address] Cardiac Rehabilitation Therapist 05/16/23 Laurel Velasquez MD [address] [place] [address] Assigned Heart and Vascular Provider 05/13/22 06/30/22 Daylin Ludwig EP [facility] [address] [place] [address] Cardiac Rehabilitation Therapist 06/08/22 06/09/23 Paula Reza MD [address] [place] [address] Assigned PCP 07/01/22 07/07/22 Porsha Michaels APRN FRONT OFFICE SUPERVISOR [address] [place] [address] Assigned Heart and Vascular Provider 07/01/22 07/07/22 Laurel Velasquez MD [address] [place] [address] Assigned Heart and Vascular Provider 07/08/22 08/04/22 Shahida Sutton APRN FRONT OFFICE SUPERVISOR Assigned PCP 07/08/22 09/08/22 Marilin Montaño, FRONT OFFICE SUPERVISOR [address] [place] [address] Assigned Heart and Vascular Provider 08/05/22 Esha Dewitt MD [address] [address] Gastroenterology 09/06/22 Heather Mosquera MD [address] [place] [address] Internal Medicine 09/06/22 Paula Reza MD [address] [facility] 200 [place] [address] Assigned PCP 09/09/22 01/05/23 Esha Dewitt MD [address] [facility] [address] [place] [address] Assigned Gastroenterology Provider 09/23/22 Valdo Escamilla PA-C [address] [facility] [address] [place] [address] Assigned Neuroscience Provider 09/30/22 Nohelia Abarca PA-C [address] [facility] [address] [place], [place] [address] Physician Parasitologist Gastroenterology 10/03/22 Heather Mosquera MD [address] [address] Assigned PCP 01/06/23 Fawad York MD [address] [place], [place] [address] Assigned Musculoskeletal Provider 04/27/23 06/25/23 documented as of this encounter
--- OUTSIDE RECORDS SUMMARY | 2023-09-21 08:35 | XMS_ITS | Encounter Summary ---
Author Organization [facility] Address [address] [place] [address] Care Team Providers Care Mother Repairer Name Role Phone Shahida Sutton APRN SUSTAINABILITY MANAGER Primary Care Provi ford Unavailable Shahida Sutton APRN SUSTAINABILITY MANAGER Unavailable Un available Carolynn Ramon RN Unavailable Augustine Callaway MD Unavailable Brady Lion MD Unavailable Un available Nima France-C Unavailable Camille Chandler PA-C Unavailable [phone] Anabela Barakat APRN SUSTAINABILITY MANAGER Unavailable Nima France PA-C Unavailable Basilio Morillo DO Unavailable [phone] Fawad York MD Unavailable Roopa Almonte MD Unavailable Augustine Callaway MD Unavailable Maryse Burton PA-C Unavailable Marquita Starkey MD Unavailable Roopa Almonte MD Unavailable Griffin Joshi MD Unavailable Rina Magallon RN Unavailable [phone] Paula Reza MD Primary Care Provider [phone] Griffin Joshi MD Unavailable Roopa Almonte MD Unavailable [phone] Basilio Morillo DO Unavailable Lydia Bernstein-C Unavailable Rosa Maria Love Unavailable [phone] Augustine Callaway MD Unavailable Paula Reza MD Unavailable Keerthi Miner APRN SUSTAINABILITY MANAGER Unavailable [phone] Herman, Shahida Cummings APRN SUSTAINABILITY MANAGER Unavailable Un available Porsha Michaels APRN SUSTAINABILITY MANAGER Unavailable [phone] Paula Reza MD Unavailable Shahida Sutton APRN SUSTAINABILITY MANAGER Unavailable Un available Daylin Ludwig Unavailable [phone] Laurel Velasquez MD Unavailable [phone] Daylin Ludwig Unavailable [phone] Paula Reza MD Unavailable Porsha Michaels APRN SUSTAINABILITY MANAGER Unavailable [phone] Laurel Velasquez MD Unavailable [phone] Shahida Sutton EXHIBITIONS AND COLLECTIONS MANAGER SUSTAINABILITY MANAGER Unavailable Un available Marilin Montaño SUSTAINABILITY MANAGER Unavailable [phone] Esha Dewitt MD Unavailable [phone] EvelineHeather MD Unavailable [phone] Paula Reza MD Unavailable Esha Dewitt MD Unavailable [phone] Valdo Escamilla PA-C Unavailable [phone] Nohelia Abarca PA-C Unavailable [phone] Heather Mosquera MD Unavailable Fawad York MD Unavailable [phone] Reason for Visit * Reason Onset Date Comments Referral 09/02/2019 New Eval Encounter Details Date Type Department Care Team (Late st Contact Info) Description 09/02/2019 Telephone [facility] [place] [address] [facility] [address] [place] [address] [facility] ) Social History Tobacco [...] Pt understood and hung up. 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 Rule Out COVID-19 01/05/2021 01/05/2021 01/06/2021 12:57 PM CDT ESBL 01/05/2021 01/05/2021 Rule Out COVID-19 06/30/2021 06/30/2021 07/01/2021 9:34 AM CDT Rule Out COVID-19 07/25/2021 07/25/2021 07/25/2021 8:02 PM CDT Assessment Noted Time PHQ-9 Depression Total Score: 7 08/13/19 20 1:22 PM CDT documented as of this encounter Care Teams Mother Repairer Relationship Specialty Start Date End Date Shahida Sutton APRN SUSTAINABILITY MANAGER PCP - General Nurse Practitioner 08/17/14 08/04/21 Paula Reza MD [address] [facility] [address] [place] [address] PCP - General Internal Medicine 08/05/21 Shahida Sutton APRN SUSTAINABILITY MANAGER Assigned PCP 07/12/14 09/30/21 Carolynn Ramon, KASIE Personal Advocate & Liaison (PAL) 12/17/18 08/07/21 [place] [address] [facility] [address] Assigned Musculoskeletal Provider 12/26/19 08/21/20 Brady Lion MD Assigned Heart and Vascular Provider 12/26/19 08/14/20 Nima France PA-C [address] [facility] [address] [place] [address] Assigned Surgical Provider 05/19/20 08/21/20 Camille Chandler PA-C [address] [facility] [address] [facility] [address] [place] [address] Assigned Neuroscience Provider 05/19/20 09/14/20 Anabela Barakat APRN SUSTAINABILITY MANAGER [address] [place] [address] Assigned Heart and Vascular Provider 08/15/20 08/05/21 Nima France PA-C [address] [facility] [address] [place] [address] Assigned Musculoskeletal Provider 08/22/20 11/13/20 [place] [address] [facility] [place] [address] Assigned Musculoskeletal Provider 11/14/20 12/04/20 Fawad York MD [address] [place], [place] [address] Assigned Musculoskeletal Provider 12/05/20 02/05/21 Roopa Almonte MD [address] [facility] [address] [place] [address] Endocrinology, Diabetes, and Metabolism 01/19/21 [place] [address] [facility] [address] [place] [address] Assigned Musculoskeletal Provider 02/06/21 09/16/21 Maryse Burton PA-C [address] [place] [place] [address] Physician Dryerman/Woman Dermatology 04/14/21 Marquita Starkey MD [address] [facility] [address] [place], [place] [address] Internal Medicine 05/06/21 05/06/21 Roopa Almonte MD [address] [facility] [address] [place], [place] [address] Hospitalist Endocrinology, Diabetes, and Metabolism 05/30/21 Griffin Joshi MD [address] [facility] [address] [place] [address] Cardiovascular Disease 07/25/21 Rina Magallon, RN Lead French Weaver 07/29/21 07/11/22 Griffin Joshi MD [address] [facility] [address] [place] [address] Assigned Heart and Vascular Provider 08/06/21 10/07/21 Roopa Almonte MD [address] [facility] [address] [place], [place] [address] Assigned Endocrinology Provider 09/10/21 [place] [address] [facility] [place] [id number] Assigned Musculoskeletal Provider 09/17/21 10/14/21 Lydia Bernstein PA-C [address] [place] [address] Assigned PCP 10/01/21 10/21/21 Rosa Maria Love CHW Community Health Worker 10/06/21 07/11/22 [place] [address] [place] [address] Assigned Musculoskeletal Provider 10/15/21 04/26/23 Paula Reza MD [address] [place] [address] Assigned PCP 10/22/21 12/23/21 Keerthi Miner APRN SUSTAINABILITY MANAGER [address] [place] [address] Assigned Heart and Vascular Provider 10/08/21 02/10/22 Shahida Sutton APRN SUSTAINABILITY MANAGER Assigned PCP 12/24/21 03/24/22 Porsha Michaels APRN SUSTAINABILITY MANAGER [address] [place] [address] Assigned Heart and Vascular Provider 02/11/22 05/12/22 Paula Reza MD [address] [place] [address] Assigned PCP 03/25/22 04/07/22 Shahida Sutton APRN SUSTAINABILITY MANAGER [address] [place] [address] Assigned PCP 04/08/22 06/30/22 Daylin Ludwig, MIKI [facility] [address] [place] [address] Cardiac Rehabilitation Therapist 05/16/23 Laurel Velasquez MD [address] [place] [address] Assigned Heart and Vascular Provider 05/13/22 06/30/22 Daylin Ludwig, MIKI [facility] [address] [place], [place] [address] Cardiac Rehabilitation Therapist 06/08/22 06/09/23 Paula Reza MD [address] 3850[address] Assigned PCP 07/01/22 07/07/22 Porsha Michaels APRN SUSTAINABILITY MANAGER [address] [place] [address] Assigned Heart and Vascular Provider 07/01/22 07/07/22 Laurel Velasquez MD [address] [place] [address] Assigned Heart and Vascular Provider 07/08/22 08/04/22 Shahida Sutton, DUANE SUSTAINABILITY MANAGER Assigned PCP 07/08/22 09/08/22 Marilin Montaño, SUSTAINABILITY MANAGER [address] [place] [address] Assigned Heart and Vascular Provider 08/05/22 Esha Dewitt MD [address] [address] MD Gastroenterology 09/06/22 Heather Mosquera MD [address] [place] [address] Internal Medicine 09/06/22 Paula Reza MD [address] [facility] 200 [place] [address] Assigned PCP 09/09/22 01/05/23 Esha Dewitt MD [address] [address] Assigned Gastroenterology Provider 09/23/22 Valdo Escamilla PA-C [address] [facility] [address] [place] [address] Assigned Neuroscience Provider 09/30/22 Nohelia Abarca PA-C [address] [place] [address] Physician Dryerman/Woman Gastroenterology 10/03/22 Heather Mosquera MD [address] [place], [place] [address] Assigned PCP 01/06/23 Fawad York MD [address] [place], [place] [address] Assigned Musculoskeletal Provider 04/27/23 06/25/23 documented as of this encounter
--- OUTSIDE RECORDS SUMMARY | 2023-09-21 08:35 | XMS_ITS | Encounter Summary ---
Author Organization [facility] Address [address] [place] [address] Care Team Providers Care Armored Car Driver Name Role Phone Shahida Sutton APRN AUTOMOTIVE PARTS SALESPERSON Primary Care Provi ford Unavailable Shahida Sutton APRN AUTOMOTIVE PARTS SALESPERSON Unavailable Un available Carolynn Ramon RN Unavailable [phone] Augustine Callaway MD Unavailable Brady Lion MD Unavailable Un available Nima France-C Unavailable Camille Chandler PA-C Unavailable [phone] Anabela Barakat APRN AUTOMOTIVE PARTS SALESPERSON Unavailable Nima France PA-C Unavailable Basilio Morillo DO Unavailable [phone] Fawad York MD Unavailable [phone] Roopa Almonte MD Unavailable Augustine Callaway MD Unavailable Maryse Burton PA-C Unavailable Marquita Starkey MD Unavailable Roopa Almonte MD Unavailable Griffin Joshi MD Unavailable Rina Magallon RN Unavailable [phone] Paula Reza MD Primary Care Provider [phone] Griffin Joshi MD Unavailable Roopa Amlonte MD Unavailable [phone] Basilio Morillo DO Unavailable Lydia Bernstein-C Unavailable Rosa Maria Love Unavailable [phone] Augustine Callaway MD Unavailable Paula Reza MD Unavailable Keerthi Miner APRN AUTOMOTIVE PARTS SALESPERSON Unavailable [phone] Herman, Shahida Cummings APRN AUTOMOTIVE PARTS SALESPERSON Unavailable Un available Porsha Michaels APRN AUTOMOTIVE PARTS SALESPERSON Unavailable [phone] Paula Reza MD Unavailable Shahida Sutton APRN AUTOMOTIVE PARTS SALESPERSON Unavailable Un available Daylin Ludwig Unavailable [phone] Laurel Velasquez MD Unavailable [phone] Daylin Ludwig Unavailable [phone] Paula Reza MD Unavailable Porsha Michaels APRN AUTOMOTIVE PARTS SALESPERSON Unavailable [phone] Laurel Velasquez MD Unavailable [phone] Shahida Sutton EVENTS DIRECTOR AUTOMOTIVE PARTS SALESPERSON Unavailable Un available Marilin Montaño AUTOMOTIVE PARTS SALESPERSON Unavailable [phone] Esha Dewitt MD Unavailable [phone] EvelineHeather MD Unavailable [phone] Paula Reza MD Unavailable Esha Dewitt MD Unavailable [phone] Andi Valdo Desouza PA-C Unavailable Nohelia Abarca PA-C Unavailable [phone] Heather Mosquera MD Unavailable Fawad York MD Unavailable [phone] Reason for Visit * Reason Comments Medication Refill BASAGLAR 100 U/ML KW IKPEN INJ 3ML Encounter Details Date Type Department Care Team (Late st Contact Info) Description 06/27/[address] [address] Shahida Sutton APRN CNP Medication [...] range: See below. Marilin Cuevas RN -- [facility] * Telephone Encounter - Neha [...] Out COVID-19 02/15/2020 02/15/2020 02/16/2020 2:32 PM MATHEMATICAL ENGINEER Rule Out COVID-19 01/05/2021 01/05/2021 01/06/2021 12:57 PM CDT ESBL 01/05/2021 01/05/2021 Rule Out COVID-19 06/30/2021 06/30/2021 07/01/2021 9:34 AM CDT Rule Out COVID-19 07/25/2021 07/25/2021 07/25/2021 8:02 PM CDT Assessment Noted Time PHQ-9 Depression Total Score: 6 12/21/19 18 7:06 AM CDT documented as of this encounter Care Teams Armored Car Driver Relationship Specialty Start Date End Date Shahida Sutton APRN AUTOMOTIVE PARTS SALESPERSON PCP - General Nurse Practitioner 08/17/14 08/04/21 Paula Reza MD [address] [facility] 200 [place] [address] PCP - General Internal Medicine 08/05/21 Shahida Sutton APRN AUTOMOTIVE PARTS SALESPERSON Assigned PCP 07/12/14 09/30/21 Carolynn Ramon, KASIE Personal Advocate & Liaison (PAL) 12/17/18 08/07/21 [place] [address] [place] [address] Assigned Musculoskeletal Provider 12/26/19 08/21/20 Brady Lion MD Assigned Heart and Vascular Provider 12/26/19 08/14/20 Nima France PA-C [address] [place] [address] Assigned Surgical Provider 05/19/20 08/21/20 Camille Chandler PA-C [address] [facility] [address] [place], [place] [address] Assigned Neuroscience Provider 05/19/20 09/14/20 Anabela Barakat APRN AUTOMOTIVE PARTS SALESPERSON [address] [place] [address] Assigned Heart and Vascular Provider 08/15/20 08/05/21 Nima France PA-C [address] [facility] 450 [place] [address] Assigned Musculoskeletal Provider 08/22/20 11/13/20 [place] [address] [place] [address] Assigned Musculoskeletal Provider 11/14/20 12/04/20 Fawad York MD [address] [place], [place] [address] Assigned Musculoskeletal Provider 12/05/20 02/05/21 Roopa Almonte MD [address] [facility] 200 [place] [address] Endocrinology, Diabetes, and Metabolism 01/19/21 [place] [address] [facility] [address] [place] [address] Assigned Musculoskeletal Provider 02/06/21 09/16/21 Maryse Burton PA-C [address] [place] [address] Physician Punch Press Setter Dermatology 04/14/21 Marquita Starkey MD [address] [facility] 200 [place] [address] Internal Medicine 05/06/21 05/06/21 Roopa Almonte MD [address] [facility] 200 [place] [address] Hospitalist Endocrinology, Diabetes, and Metabolism 05/30/21 Griffin Joshi MD [address] [place] [address] Cardiovascular Disease 07/25/21 Rina Magallon RN Lead Buckle And Button Maker 07/29/21 07/11/22 Griffin Joshi MD [address] [place] [address] Assigned Heart and Vascular Provider 08/06/21 10/07/21 Roopa Almonte MD [address] [facility] [address] [place], [place] [address] Assigned Endocrinology Provider 09/10/21 [place] [address] [facility] [place] [address] Assigned Musculoskeletal Provider 09/17/21 10/14/21 Lydia Bernstein PA-C [address] [place] [address] Assigned PCP 10/01/21 10/21/21 Klarissa Lovesay, W Community Health Worker 10/06/21 07/11/22 [place] [address] [place] [address] Assigned Musculoskeletal Provider 10/15/21 04/26/23 Paula Reza MD [address] [place] [address] Assigned PCP 10/22/21 12/23/21 Keerthi Miner APRN AUTOMOTIVE PARTS SALESPERSON [address] [place] [address] Assigned Heart and Vascular Provider 10/08/21 02/10/22 Shahida Sutton APRN AUTOMOTIVE PARTS SALESPERSON Assigned PCP 12/24/21 03/24/22 Porsha Michaels APRN AUTOMOTIVE PARTS SALESPERSON [address] [place] [address] Assigned Heart and Vascular Provider 02/11/22 05/12/22 Paula Reza MD [address] [place] [address] Assigned PCP 03/25/22 04/07/22 Shahida Sutton APRN AUTOMOTIVE PARTS SALESPERSON [address] [place] [address] Assigned PCP 04/08/22 06/30/22 Daylin Ludwig EP [facility] [address] [place] [address] Cardiac Rehabilitation Therapist 05/16/23 Laurel Velasquez MD [address] [place] [address] Assigned Heart and Vascular Provider 05/13/22 06/30/22 Daylin Ludwig EP [facility] [address] [place] [address] Cardiac Rehabilitation Therapist 06/08/22 06/09/23 Paula Reza MD [address] [facility] 200 [place], [place] [address] Assigned PCP 07/01/22 07/07/22 Porsha Michaels APRN AUTOMOTIVE PARTS SALESPERSON [address] [place] [address] Assigned Heart and Vascular Provider 07/01/22 07/07/22 Laurel Velasquez MD [address] [place] [address] Assigned Heart and Vascular Provider 07/08/22 08/04/22 Shahida Sutton, EVENTS DIRECTOR AUTOMOTIVE PARTS SALESPERSON Assigned PCP 07/08/22 09/08/22 Marilin Montaño, AUTOMOTIVE PARTS SALESPERSON [address] [place] [address] Assigned Heart and Vascular Provider 08/05/22 Esha Dewitt MD [address] [place] [address] 36 [place], [place] [address] Gastroenterology 09/06/22 Heather Mosquera MD [address] [place] [address] Internal Medicine 09/06/22 Paula Reza MD [address] [place] [address] Assigned PCP 09/09/22 01/05/23 Esha Dewitt MD [address] [facility] 36 [place], [place] [address] Assigned Gastroenterology Provider 09/23/22 Valdo Escamilla PA-C [address] [facility] [address] [place], [place] [id number] Assigned Neuroscience Provider 09/30/22 Nohelia Abarca PA-C [address] [place], [place] [address] Physician Punch Press Setter Gastroenterology 10/03/22 Heather Mosquera MD [address] [place] [address] Assigned PCP 01/06/23 Fawad York MD [address] [place], [place] [address] Assigned Musculoskeletal Provider 04/27/23 06/25/23 documented as of this encounter
--- OUTSIDE RECORDS SUMMARY | 2023-09-21 08:35 | XMS_ITS | Encounter Summary ---
Author Organization [facility] Address [address] [place] [address] Care Team Providers Care Hospice Music Therapy Name Role Phone HermanShahida huerta APRN SHOE SEWING MACHINE OPERATOR AND TENDER Primary Care Provi ford Unavailable Herman, Shahida Cummings APRN SHOE SEWING MACHINE OPERATOR AND TENDER Unavailable Un available Herman, Shahida Cummings APRN SHOE SEWING MACHINE OPERATOR AND TENDER Unavailable Un available Carolynn Ramon RN Unavailable [phone] Augustine Callaway MD Unavailable Brady Lion MD Unavailable Un available Nima France-C Unavailable [phone] Camille Chandler PA-C Unavailable [phone] Anabela Barakat APRN SHOE SEWING MACHINE OPERATOR AND TENDER Unavailable Nima France PA-C Unavailable Basilio Morillo DO Unavailable Fawad York MD Unavailable [phone] Roopa Almonte MD Unavailable [phone] Augustine Callaway MD Unavailable Maryse Burton PA-C Unavailable Marquita Starkey MD Unavailable [phone] Roopa Almonte MD Unavailable [phone] Griffin Joshi MD Unavailable Rina Magallon RN Unavailable [phone] Paula Reza MD Primary Care Provider [phone] Griffin Joshi MD Unavailable Roopa Almonte MD Unavailable [phone] [facility] Basilio Naik Unavailable Lydia Bernstein PA-C Unavailable Rosa Maria Love Unavailable [phone] Augustine Callaway MD Unavailable Paula Reza MD Unavailable Keerthi Miner APRN SHOE SEWING MACHINE OPERATOR AND TENDER Unavailable [phone] Herman, Shahida Cummings APRN SHOE SEWING MACHINE OPERATOR AND TENDER Unavailable Un available Porsha Michaels APRN SHOE SEWING MACHINE OPERATOR AND TENDER Unavailable [phone] Paula Reza MD Unavailable Herman, Shahida Cummings APRN SHOE SEWING MACHINE OPERATOR AND TENDER Unavailable Un available Daylin Ludwig Unavailable [phone] Laurel Velasquez MD Unavailable [phone] Daylin Ludwig Unavailable [phone] Paula Reza MD Unavailable Porsha Michaels APRN SHOE SEWING MACHINE OPERATOR AND TENDER Unavailable [phone] Laurel Velasquez MD Unavailable [phone] Herman, Shahida Cummings APRN SHOE SEWING MACHINE OPERATOR AND TENDER Unavailable Un available Marilin Montaño SHOE SEWING MACHINE OPERATOR AND TENDER Unavailable [phone] Esha Dewitt MD Unavailable [phone] Heather Mosquera MD Unavailable [phone] Paula Reza MD Unavailable Esha Dewitt MD Unavailable [phone] Valdo Escamilla PA-C Unavailable Nohelia Abarca PA-C Unavailable [phone] Heather Mosquera MD Unavailable Fawad York MD Unavailable [phone] Reason for Visit * Reason Onset Date Comments Refill Request 04/17/2018 zolpidem Encounter Details Date Type Department Care Team (Late st Contact Info) Description 04/17/2018 MyC Refill [address] [address] Shahida Sutton APRN CNP Refill [...] Return Visit with Jing Roper APRN CNP [facility] ([facility]) [id number] [place] [address]. [facility] [id number] Requested Prescriptions Pending Prescriptions Disp Refills ??? zolpidem (AMBIEN) 10 MG tablet 30 tablet 3 Sig: Take 1 tablet (10 mg) by mouth nightly as needed for sleep There is no refill protocol information for this order Paula Calderon RN, BSN Message handled by Nurse Triage. 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 Rule Out COVID-19 01/05/2021 01/05/2021 01/06/2021 12:57 PM CDT ESBL 01/05/2021 01/05/2021 Rule Out COVID-19 06/30/2021 06/30/2021 07/01/2021 9:34 AM CDT Rule Out COVID-19 07/25/2021 07/25/2021 07/25/2021 8:02 PM CDT Assessment Noted Time PHQ-9 Depression Total Score: 6 12/21/19 18 7:06 AM CDT documented as of this encounter Care Teams Hospice Music Therapy Relationship Specialty Start Date End Date Shahida Sutton APRN SHOE SEWING MACHINE OPERATOR AND TENDER PCP - General Nurse Practitioner 08/17/14 08/04/21 Shahida Sutton APRN SHOE SEWING MACHINE OPERATOR AND TENDER PCP - Assigned PCP 07/12/14 05/07/18 Paula Reza MD [address] [place] [address] PCP - General Internal Medicine 08/05/21 Shahida Sutton APRN SHOE SEWING MACHINE OPERATOR AND TENDER Assigned PCP 07/12/14 09/30/21 Carolynn Ramon RN Personal Advocate & Liaison (PAL) 12/17/18 08/07/21 [place] [address] [place] [address] Assigned Musculoskeletal Provider 12/26/19 08/21/20 Brady Lion MD Assigned Heart and Vascular Provider 12/26/19 08/14/20 Nima France PA-C [address] [facility] [address] [place] [address] Assigned Surgical Provider 05/19/20 08/21/20 Camille Chandler PA-C [address] [facility] [address] [place] [address] Assigned Neuroscience Provider 05/19/20 09/14/20 Anabela Barakat APRN CNP [address] [place] [address] Assigned Heart and Vascular Provider 08/15/20 08/05/21 Nima France PA-C [address] [facility] 450 [place] [address] Assigned Musculoskeletal Provider 08/22/20 11/13/20 [place] [address] [facility] [place] [address] Assigned Musculoskeletal Provider 11/14/20 12/04/20 Fawad York MD 909 [place] [address] Assigned Musculoskeletal Provider 12/05/20 02/05/21 Roopa Almonte MD [address] [facility] [address] [place] [address] Endocrinology, Diabetes, and Metabolism 01/19/21 [place] [address] [facility] [address] [address] [place] [address] Assigned Musculoskeletal Provider 02/06/21 09/16/21 Maryse Burton PA-C [address] [place] [address] Physician Injection Molding Machine Tender Dermatology 04/14/21 Marqiuta Starkey MD [address] [facility] 200 [place] [address] Internal Medicine 05/06/21 05/06/21 Roopa Almonte MD [address] [facility] 200 [place] [address] Hospitalist Endocrinology, Diabetes, and Metabolism 05/30/21 Griffin Joshi MD [address] [facility] [address] [place] [address] Cardiovascular Disease 07/25/21 Rina Magallon, RN Lead Cloth Mender 07/29/21 07/11/22 Griffin Joshi MD [address] [facility] [address] [place] [address] Assigned Heart and Vascular Provider 08/06/21 10/07/21 Roopa Almonte MD [address] [facility] 200 [place], [place] [address] Assigned Endocrinology Provider 09/10/21 [place] [address] [facility] [address] [place] [address] Assigned Musculoskeletal Provider 09/17/21 10/14/21 Lydia Bernstein PA-C [address] [place] [address] Assigned PCP 10/01/21 10/21/21 Rosa Maria Love CHW Community Health Worker 10/06/21 07/11/22 [place] [address] [place] [address] Assigned Musculoskeletal Provider 10/15/21 04/26/23 Paula Reza MD [address] [place] [address] Assigned PCP 10/22/21 12/23/21 eKerthi Miner APRN SHOE SEWING MACHINE OPERATOR AND TENDER [address] [place] [address] Assigned Heart and Vascular Provider 10/08/21 02/10/22 Shahida Sutton APRN SHOE SEWING MACHINE OPERATOR AND TENDER Assigned PCP 12/24/21 03/24/22 Porsha Michaels APRN SHOE SEWING MACHINE OPERATOR AND TENDER [address] [place] [address] Assigned Heart and Vascular Provider 02/11/22 05/12/22 Paula Reza MD [address] [place] [address] Assigned PCP 03/25/22 04/07/22 Shahida Sutton APRN SHOE SEWING MACHINE OPERATOR AND TENDER [address] [place] [address] Assigned PCP 04/08/22 06/30/22 Daylin Ludwig, EP [facility] [address] [place] [address] Cardiac Rehabilitation Therapist 05/16/23 Laurel Velasquez MD [address] [place] [address] Assigned Heart and Vascular Provider 05/13/22 06/30/22 Daylin Ludwig, EP [facility] [address] [place] [address] Cardiac Rehabilitation Therapist 06/08/22 06/09/23 Paula Reza MD [address] [place] [address] Assigned PCP 07/01/22 07/07/22 Porsha Michaels APRN SHOE SEWING MACHINE OPERATOR AND TENDER [address] [place] [address] Assigned Heart and Vascular Provider 07/01/22 07/07/22 Laurel Velasquez MD [address] [place] [address] Assigned Heart and Vascular Provider 07/08/22 08/04/22 Shahida Sutton APRN SHOE SEWING MACHINE OPERATOR AND TENDER Assigned PCP 07/08/22 09/08/22 Marilin Montaño, PAULA [address] [place] [address] Assigned Heart and Vascular Provider 08/05/22 Esha Dewitt MD [address] [facility] 36 [place] [address] MD Gastroenterology 09/06/22 Heather Mosquera MD [address] [place] [address] Internal Medicine 09/06/22 Paula Reza MD [address] [facility] 200 [place] [address] Assigned PCP 09/09/22 01/05/23 Esha Dewitt MD 420 [facility] 36 [place] [address] Assigned Gastroenterology Provider 09/23/22 Valdo Escamilla PA-C [address] [facility] [address] [place] [id number] Assigned Neuroscience Provider 09/30/22 Nohelia Abarca PA-C [address] [facility] [place], [place] [address] Physician Injection Molding Machine Tender Gastroenterology 10/03/22 Heather Mosquera MD [address] [place] [address] Assigned PCP 01/06/23 Fawad York MD [address] [place] [address] Assigned Musculoskeletal Provider 04/27/23 06/25/23 documented as of this encounter
--- OUTSIDE RECORDS SUMMARY | 2023-09-21 08:35 | XMS_ITS | Encounter Summary ---
Author Organization [place] [facility] Address [address] [place] [address] Care Team Providers Care Surg Tech Name Role Phone Shahida Sutton APRN DRY CLEANING CHECKER Primary Care Provi ford Unavailable Shahida Sutton APRN DRY CLEANING CHECKER Unavailable Un available Carolynn Raomn RN Unavailable Augustine Callaway MD Unavailable Brady Lion MD Unavailable Un available Nima France-C Unavailable Camille Chandler PA-C Unavailable [phone] Anabela Barakat APRN DRY CLEANING CHECKER Unavailable Nima France PA-C Unavailable Basilio Morillo DO Unavailable [phone] Fawad York MD Unavailable Roopa Almonte MD Unavailable [phone] Augustine Callaway MD Unavailable Maryse Burton PA-C Unavailable [phone] Marquita Starkey MD Unavailable Roopa Almonte MD Unavailable Griffin Joshi MD Unavailable Rina Magallon RN Unavailable [phone] Paula Reza MD Primary Care Provider [phone] Griffin Joshi MD Unavailable Roopa Almonte MD Unavailable [phone] Basilio Morillo DO Unavailable Lydia Bernstein-C Unavailable Rosa Maria Love Unavailable [phone] Augustine Callaway MD Unavailable Paula Reza MD Unavailable Keerthi Miner APRN DRY CLEANING CHECKER Unavailable [phone] Herman, Shahida Cummings APRN DRY CLEANING CHECKER Unavailable Un available Porsha Michaels APRN DRY CLEANING CHECKER Unavailable [phone] Paula Reza MD Unavailable Shahida Sutton APRN DRY CLEANING CHECKER Unavailable Un available Daylin Ludwig Unavailable [phone] Laurel Velasquez MD Unavailable [phone] Daylin Ludwig Unavailable [phone] Paula Reza MD Unavailable Porsha Michaels APRN DRY CLEANING CHECKER Unavailable [phone] Laurel Velasquez MD Unavailable [phone] Shahida Sutton GLASS CLEANING MACHINE TENDER DRY CLEANING CHECKER Unavailable Un available Marilin Montaño DRY CLEANING CHECKER Unavailable [phone] Esha Dewitt MD Unavailable [phone] EvelineHeather MD Unavailable [phone] Paula Reza MD Unavailable Esha Dewitt MD Unavailable [phone] Andi Valdo Desouza PA-C Unavailable Nohelia Abarca PA-C Unavailable [phone] Heather Mosquera MD Unavailable Fawad York MD Unavailable [phone] Encounter Details Date Type Department Care Team (Late st Contact Info) Description 06/27/[address] [phone] Shahida Sutton APRN DRY CLEANING CHECKER Social History Tobacco Use Types Packs/Day Years [...] Out COVID-19 02/15/2020 02/15/2020 02/16/2020 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 Rule Out COVID-19 01/05/2021 01/05/2021 01/06/2021 12:57 PM CDT ESBL 01/05/2021 01/05/2021 Rule Out COVID-19 06/30/2021 06/30/2021 07/01/2021 9:34 AM CDT Rule Out COVID-19 07/25/2021 07/25/2021 07/25/2021 8:02 PM CDT Assessment Noted Time PHQ-9 Depression Total Score: 6 12/21/19 18 7:06 AM CDT documented as of this encounter Care Teams Surg Tech Relationship Specialty Start Date End Date Shahida Sutton APRN DRY CLEANING CHECKER PCP - General Nurse Practitioner 08/17/14 08/04/21 Paula Reza MD [address] [facility] 200 [place] [address] PCP - General Internal Medicine 08/05/21 Shahida Sutton APRN DRY CLEANING CHECKER Assigned PCP 07/12/14 09/30/21 Carolynn Ramon, KASIE Personal Advocate & Liaison (PAL) 12/17/18 08/07/21 [place] [address] [place] [address] Assigned Musculoskeletal Provider 12/26/19 08/21/20 Brady Lion MD Assigned Heart and Vascular Provider 12/26/19 08/14/20 Nima France PA-C [address] [facility] [address] [address] [place] [address] Assigned Surgical Provider 05/19/20 08/21/20 Camille Chandler PA-C 6545 [facility] [address] [place] [address] Assigned Neuroscience Provider 05/19/20 09/14/20 Anabela Barakat APRN DRY CLEANING CHECKER 1700 [place] [address] Assigned Heart and Vascular Provider 08/15/20 08/05/21 Nima France PA-C [address] [facility] [address] [address] [place] [address] Assigned Musculoskeletal Provider 08/22/20 11/13/20 [place] [address] [facility] [place] [address] Assigned Musculoskeletal Provider 11/14/20 12/04/20 Fawad York MD [address] [place], [place] [address] Assigned Musculoskeletal Provider 12/05/20 02/05/21 Roopa Almonte MD [address] [facility] 200 [place] [address] Endocrinology, Diabetes, and Metabolism 01/19/21 [place] [address] [facility] 300 [place] [address] Assigned Musculoskeletal Provider 02/06/21 09/16/21 Maryse Burton, PA-C 5200 [place] [address] Physician Service Unit Operator Dermatology 04/14/21 Marquita Starkey MD [address] [facility] 200 [place] [address] Internal Medicine 05/06/21 05/06/21 Roopa Almonte MD [address] [facility] 200 [place] [address] Hospitalist Endocrinology, Diabetes, and Metabolism 05/30/21 Griffin Joshi MD [address] [facility] [address] [place] [address] Cardiovascular Disease 07/25/21 Rina Magallon, RN Lead Business Excellence Leader 07/29/21 07/11/22 Griffin Joshi MD [address] [place] [address] Assigned Heart and Vascular Provider 08/06/21 10/07/21 Roopa Almonte MD [address] [facility] 200 [place], [place] [address] Assigned Endocrinology Provider 09/10/21 [place] [address] [facility] [place] [address] Assigned Musculoskeletal Provider 09/17/21 10/14/21 Lydia Bernstein PA-C [address] [place] [address] Assigned PCP 10/01/21 10/21/21 Rosa Maria Love CHW Community Health Worker 10/06/21 07/11/22 [place] [address] [facility] [address] [place] [address] Assigned Musculoskeletal Provider 10/15/21 04/26/23 Paula Reza MD [address] [facility] 200 [place] [address] Assigned PCP 10/22/21 12/23/21 Keerthi Miner APRN DRY CLEANING CHECKER [address] [place] [address] Assigned Heart and Vascular Provider 10/08/21 02/10/22 Shahida Sutton APRN DRY CLEANING CHECKER Assigned PCP 12/24/21 03/24/22 Porsha Michaels APRN DRY CLEANING CHECKER [address] [place] [address] Assigned Heart and Vascular Provider 02/11/22 05/12/22 Paula Reza MD [address] [place] [address] Assigned PCP 03/25/22 04/07/22 Shahida Sutton APRN DRY CLEANING CHECKER [address] [place] [address] Assigned PCP 04/08/22 06/30/22 Daylin Ludwig, EP [facility] [address] [place] [address] Cardiac Rehabilitation Therapist 05/16/23 Laurel Velasquez MD [address] [place] [address] Assigned Heart and Vascular Provider 05/13/22 06/30/22 Daylin Ludwig, EP [facility] [address] [place] [address] Cardiac Rehabilitation Therapist 06/08/22 06/09/23 Paula Reza MD [address] [place] [address] Assigned PCP 07/01/22 07/07/22 Porsha Michaels APRN DRY CLEANING CHECKER [address] [place] [address] Assigned Heart and Vascular Provider 07/01/22 07/07/22 Laurel Velsaquez MD [address] [place] [address] Assigned Heart and Vascular Provider 07/08/22 08/04/22 Shahida Sutton APRN DRY CLEANING CHECKER Assigned PCP 07/08/22 09/08/22 Marilin Montaño, DRY CLEANING CHECKER [address] [place] [address] Assigned Heart and Vascular Provider 08/05/22 Esha Dewitt MD [address] [place] [address] Gastroenterology 09/06/22 Heather Mosquera MD [address] [facility] 150 [place] [address] Internal Medicine 09/06/22 Paula Reza MD [address] [place], [place] [address] Assigned PCP 09/09/22 01/05/23 Esha Dewitt MD [address] [address] Assigned Gastroenterology Provider 09/23/22 Valdo Escamilla PA-C [address] [facility] [address] [address] [place] [address] Assigned Neuroscience Provider 09/30/22 Nohelia Abarca PA-C [address] [place], [place] [address] Physician Service Unit Operator Gastroenterology 10/03/22 Heather Mosquera MD [address] [place] [address] Assigned PCP 01/06/23 Fawad York MD 909 [place], [place] [address] Assigned Musculoskeletal Provider 04/27/23 06/25/23 documented as of this encounter
--- OUTSIDE RECORDS SUMMARY | 2023-09-21 08:35 | XMS_ITS | Encounter Summary ---
Author Organization [facility] Address [address] [place] [address] Care Team Providers Care Eastern Philosophy Professor Name Role Phone Shahida Sutton APRN DIRECTOR PROFESSIONAL SERVICES Primary Care Provi ford Unavailable Shahida Sutton APRN DIRECTOR PROFESSIONAL SERVICES Unavailable Un available Carolynn Ramon RN Unavailable Augustine Callaway MD Unavailable Brady Lion MD Unavailable Un available Nima France-C Unavailable Camille Chandler PA-C Unavailable [phone] Anabela Barakat APRN DIRECTOR PROFESSIONAL SERVICES Unavailable Nima France PA-C Unavailable Basilio Morillo DO Unavailable aFwad York MD Unavailable Roopa Almonte MD Unavailable [phone] Augustine Callaway MD Unavailable Maryse Burton PA-C Unavailable Marquita Starkey MD Unavailable [phone] Roopa Almonte MD Unavailable Griffin Joshi MD Unavailable Rina Magallon RN Unavailable [phone] Paula Reza MD Primary Care Provider [phone] Griffin Joshi MD Unavailable Roopa Almonte MD Unavailable [phone] Basilio Morillo DO Unavailable Lydia Bernstein-C Unavailable Rosa Maria Love Unavailable [phone] Augustine Callaway MD Unavailable Paula Reza MD Unavailable Keerthi Miner APRN DIRECTOR PROFESSIONAL SERVICES Unavailable [phone] Herman, Shahida Cummings APRN DIRECTOR PROFESSIONAL SERVICES Unavailable Un available Porsha Michaels APRN DIRECTOR PROFESSIONAL SERVICES Unavailable [phone] Paula Reza MD Unavailable Shahida Sutton APRN DIRECTOR PROFESSIONAL SERVICES Unavailable Un available Daylin Ludwig Unavailable [phone] Laurle Velasquez MD Unavailable [phone] Daylin Ludwig Unavailable [phone] Paula Reza MD Unavailable Porsha Michaels APRN DIRECTOR PROFESSIONAL SERVICES Unavailable [phone] Laurel Velasquez MD Unavailable [phone] Shahida Sutton RN ER DIRECTOR PROFESSIONAL SERVICES Unavailable Un available Marilin Montaño DIRECTOR PROFESSIONAL SERVICES Unavailable [phone] Esha Dewitt MD Unavailable [phone] EvelineHeather MD Unavailable [phone] Paula Reza MD Unavailable Esha Dewitt MD Unavailable [phone] Valdo Escamilla PA-C Unavailable Nohelia Abarca PA-C Unavailable [phone] Heather Mosquera MD Unavailable [phone] Fawad York MD Unavailable Encounter Details Date Type Department Care Team (Late st Contact Info) Description 05/06/2019 [facility] [address] [address] Carolynn Ramon RN Social History [...] Out COVID-19 02/15/2020 02/15/2020 02/16/2020 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 [address] [place] [address] PCP - General Internal Medicine 08/05/21 Shahida Sutton APRN DIRECTOR PROFESSIONAL SERVICES Assigned PCP 07/12/14 09/30/21 Carolynn Ramon, KASIE Personal Advocate & Liaison (PAL) 12/17/18 08/07/21 [place] [address] [facility] [address] [place] [address] Assigned Musculoskeletal Provider 12/26/19 08/21/20 Brady Lion MD Assigned Heart and Vascular Provider 12/26/19 08/14/20 Nima France PA-C 6545 [facility] [address] [place] [address] Assigned Surgical Provider 05/19/20 08/21/20 Camille Chandler PA-C 6545 [facility] [address] [place] [address] Assigned Neuroscience Provider 05/19/20 09/14/20 Anabela Barakat APRN DIRECTOR PROFESSIONAL SERVICES [address] [place] [address] Assigned Heart and Vascular Provider 08/15/20 08/05/21 Nima France PA-C [address] [facility] [address] [place] [address] Assigned Musculoskeletal Provider 08/22/20 11/13/20 [place] [address] [address] [place] [address] Assigned Musculoskeletal Provider 11/14/20 12/04/20 Fawad York MD [address] [place], [place] [address] Assigned Musculoskeletal Provider 12/05/20 02/05/21 Roopa Almonte MD [address] [facility] [address] [place] [address] Endocrinology, Diabetes, and Metabolism 01/19/21 [place] [address] [facility] [address] [place] [address] Assigned Musculoskeletal Provider 02/06/21 09/16/21 Maryse Burton PA-C [address] [place] [address] Physician Door Liner Dermatology 04/14/21 Marquita Starkey MD [address] [place] [address] Internal Medicine 05/06/21 05/06/21 Roopa Almonte MD [address] [place] [address] Hospitalist Endocrinology, Diabetes, and Metabolism 05/30/21 Griffin Joshi MD [address] [facility] [address] [place] [address] Cardiovascular Disease 07/25/21 Rina Magallon, RN Lead Cushion Cover Inspector 07/29/21 07/11/22 Griffin Joshi MD [address] [facility] [address] [place] [address] Assigned Heart and Vascular Provider 08/06/21 10/07/21 Roopa Almonte MD [address] [place] [address] 200 [place], [place] [address] Assigned Endocrinology Provider 09/10/21 [place] [address] [place] [address] Assigned Musculoskeletal Provider 09/17/21 10/14/21 Lydia Bernstein PA-C [address] [facility] [address] [place] [address] Assigned PCP 10/01/21 10/21/21 Rosa Maria Love CHW Community Health Worker 10/06/21 07/11/22 [place] [address] [facility] [address] [place] [address] Assigned Musculoskeletal Provider 10/15/21 04/26/23 Paula Reza MD [address] [facility] [address] [place] [address] Assigned PCP 10/22/21 12/23/21 Keerthi Miner APRN DIRECTOR PROFESSIONAL SERVICES [address] [place] [address] Assigned Heart and Vascular Provider 10/08/21 02/10/22 Shahida Sutton APRN DIRECTOR PROFESSIONAL SERVICES Assigned PCP 12/24/21 03/24/22 Porsha Michaels RN ER DIRECTOR PROFESSIONAL SERVICES [address] [place] [address] Assigned Heart and Vascular Provider 02/11/22 05/12/22 Paula Reza MD [address] [facility] [address] [place] [address] Assigned PCP 03/25/22 04/07/22 Shahida Sutton APRN DIRECTOR PROFESSIONAL SERVICES [address] [place] [address] Assigned PCP 04/08/22 06/30/22 Daylin Ludwig EP [facility] [address] [place] [address] Cardiac Rehabilitation Therapist 05/16/23 Laurel Velasquez MD [address] [place] [address] Assigned Heart and Vascular Provider 05/13/22 06/30/22 Daylin Ludwig EP [facility] [address] [place] [address] Cardiac Rehabilitation Therapist 06/08/22 06/09/23 Paula Reza MD [address] [place], [place] [address] Assigned PCP 07/01/22 07/07/22 Porsha Michaels APRN DIRECTOR PROFESSIONAL SERVICES [address] [place] [address] Assigned Heart and Vascular Provider 07/01/22 07/07/22 Laurel Velasquez MD [address] [place], [place] [address] Assigned Heart and Vascular Provider 07/08/22 08/04/22 Shahida Sutton APRN DIRECTOR PROFESSIONAL SERVICES Assigned PCP 07/08/22 09/08/22 Marilin Montaño, DIRECTOR PROFESSIONAL SERVICES [address] [place] [address] Assigned Heart and Vascular Provider 08/05/22 Esha Dewitt MD [address] [place] [address] Gastroenterology 09/06/22 Heather Mosquera MD [address] [place] [address] Internal Medicine 09/06/22 Paula Reza MD [address] [place], [place] [address] Assigned PCP 09/09/22 01/05/23 Esha Dewitt MD [address] [place] [address] Assigned Gastroenterology Provider 09/23/22 Valdo Escamilla PA-C 6[address] [facility] [address] [place] [address] Assigned Neuroscience Provider 09/30/22 Nohelia Abarca PA-C [address] [place], [place] [address] Physician Door Liner Gastroenterology 10/03/22 Heather Mosquera MD 6545 [facility] 150 [place] [address] Assigned PCP 01/06/23 Fawad York MD [address] [place], [place] [address] Assigned Musculoskeletal Provider 04/27/23 06/25/23 documented as of this encounter
--- OUTSIDE RECORDS SUMMARY | 2023-09-21 08:35 | XMS_ITS | Encounter Summary ---
Author Organization [facility] Address [address] [place] [address] Care Team Providers Care Manager Multicultural Name Role Phone HermanShahida huerta APRN SIGN WRITER HAND Primary Care Provi ford Unavailable Herman, Shahida Cummings APRN SIGN WRITER HAND Unavailable Un available Herman, Shahida Cummings APRN SIGN WRITER HAND Unavailable Un available Carolynn Ramon RN Unavailable [phone] Augustine Callaway MD Unavailable Brady Lion MD Unavailable Un available Nima France-C Unavailable [phone] Camille Chandler PA-C Unavailable [phone] Anabela Barakat APRN SIGN WRITER HAND Unavailable Nima France PA-C Unavailable Basilio Morillo DO Unavailable Fawad York MD Unavailable [phone] Roopa Almonte MD Unavailable [phone] Augustine Callaway MD Unavailable Maryse Burton PA-C Unavailable [phone] Marquita Starkey MD Unavailable Roopa Almonte MD Unavailable [phone] Griffin Joshi MD Unavailable Rina Magallon RN Unavailable [phone] Paula Reza MD Primary Care Provider [phone] Griffin Joshi MD Unavailable Roopa Almonte MD Unavailable [phone] [facility] Bas[facility] Naik Unavailable Lydia Bernstein PA-C Unavailable Rosa Maria Love Unavailable [phone] Augustine Callaway MD Unavailable Paula Reza MD Unavailable Keerthi Miner APRN SIGN WRITER HAND Unavailable [phone] Herman, Shahida Cummings APRN SIGN WRITER HAND Unavailable Un available Porsha Michaels APRN SIGN WRITER HAND Unavailable [phone] Paula Reza MD Unavailable Herman, Shahida Cummings APRN SIGN WRITER HAND Unavailable Un available Daylin Ludwig Unavailable [phone] Laurel Velasquez MD Unavailable [phone] Daylin Ludwig Unavailable [phone] Paula Reza MD Unavailable Porsha Michaels APRN SIGN WRITER HAND Unavailable [phone] Laurel Velasquez MD Unavailable [phone] Herman, Shahida Cummings APRN SIGN WRITER HAND Unavailable Un available Marilin Montaño SIGN WRITER HAND Unavailable [phone] Esha Dewitt MD Unavailable [phone] Heather Mosquera MD Unavailable [phone] Paula Reza MD Unavailable Esha Dewitt MD Unavailable [phone] Valdo Escamilla PA-C Unavailable [phone] Nohelia Abarca PA-C Unavailable [phone] Heather Mosquera MD Unavailable Fawad York MD Unavailable Reason for Visit * Reason Comments Medication Refill GABAPENTIN 300MG MIGUEL CORBIN Encounter Details Date Type Department Care Team (Late st Contact Info) Description 08/21/[address] [address] Shahida Sutton APRN CNP Medication [...] further evaluation. RX monitoring program ([place]) reviewed: PIN WORKER reviewed- no concerns Last Fills: Gabapentin- 07/11/2016, #270; 05/25/2016, #270 [place]- 08/10/2016, #30; 07/11/2016, #120 Adderall- 07/29/2016, #60 06/30/2016, #60 Ambien- 07/28/2016,#30 06/29/2016, #30 [place] profile: [email or web address] Shanon Holliday RN, BSN, PHN [facility] RN * Telephone Encounter - Pranav Maysen - 08/21/2016 1:28 PM CDT GABAPENTIN 300MG CAPSULES Last Written Prescription Date: 05-25-2016 Last Fill Quantity: 07-11-2016, #270 refills: 1 Last Office Visit with [facility], P or [facility] prescribing provider: 06-12-2016 Shahida Sutton. Next 5 appointments (look out 90 days) Sep 19, 2016 8:00 AM CDT Return Visit with Jing Roper APRN [facility] ([facility] [address] [place] [phone] Sep 20, 2016 10:00 AM CDT Nurse Only with [facility] SUPERINTENDENT - REGION 5 [facility] ([facility]) [address] [place] [phone] documented in this encounter Plan of Treatment Not on file documented as of this encounter Visit Diagnoses Diagnosis Other chronic pain documented in this encounter Additional Health Concerns Infection Onset Date Last Indicated Resolved Time Rule Out COVID-19 02/15/2020 02/15/2020 02/16/2020 2:32 PM 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 Rule Out COVID-19 01/05/2021 01/05/2021 01/06/2021 12:57 PM CDT ESBL 01/05/2021 01/05/2021 Rule Out COVID-19 06/30/2021 06/30/2021 07/01/2021 9:34 AM CDT Rule Out COVID-19 07/25/2021 07/25/2021 07/25/2021 8:02 PM CDT Assessment Noted Time PHQ-9 Depression Total Score: 5 05/27/19 17 7:07 AM CDT documented as of this encounter Care Teams Manager Multicultural Relationship Specialty Start Date End Date Shahida Sutton APRN SIGN WRITER HAND PCP - General Nurse Practitioner 08/17/14 08/04/21 Shahida Sutton APRN SIGN WRITER HAND PCP - Assigned PCP 07/12/14 05/07/18 Paula Reza MD [address] [facility] [address] [place] [address] PCP - General Internal Medicine 08/05/21 Shahida Sutton APRN SIGN WRITER HAND Assigned PCP 07/12/14 09/30/21 Carolynn Ramon RN Personal Advocate & Liaison (PAL) 12/17/18 08/07/21 [place] [address] [place] [address] Assigned Musculoskeletal Provider 12/26/19 08/21/20 Brady Lion MD Assigned Heart and Vascular Provider 12/26/19 08/14/20 Nima France PA-C [address] [facility] [address] [place] [address] Assigned Surgical Provider 05/19/20 08/21/20 Camille Chandler PA-C [address] [facility] [address] [place] [address] Assigned Neuroscience Provider 05/19/20 09/14/20 Anabela Barakat APRN SIGN WRITER HAND [address]00 [place] [address] Assigned Heart and Vascular Provider 08/15/20 08/05/21 Nima France PA-C [address] [facility] [facility] [address] [place], [place] [address] Assigned Musculoskeletal Provider 08/22/20 11/13/20 [place] [address] [facility] [place], [place] [address] Assigned Musculoskeletal Provider 11/14/20 12/04/20 Fawad York MD [address] [place], [place] [address] Assigned Musculoskeletal Provider 12/05/20 02/05/21 Roopa Almonte MD [address] [facility] [address] [place] [address] Endocrinology, Diabetes, and Metabolism 01/19/21 [place] [address] [facility] [address] [place], [place] [address] Assigned Musculoskeletal Provider 02/06/21 09/16/21 Maryse Burton PA-C [address] [place] [address] Physician Bluing Oven Tender Dermatology 04/14/21 Marquita Stareky MD [address] [facility] [address] [place], [place] [address] Internal Medicine 05/06/21 05/06/21 Roopa Almonte MD [address] [facility] [address] [place], [place] [address] Hospitalist Endocrinology, Diabetes, and Metabolism 05/30/21 Griffin Joshi MD [address] [facility] [address] [place] [address] Cardiovascular Disease 07/25/21 Rina Magallon, RN Lead Greenskeeper Laborer 07/29/21 07/11/22 Griffin Joshi MD [address] [place] [address] Assigned Heart and Vascular Provider 08/06/21 10/07/21 Roopa Almonte MD [address] [place] [address] 200 [place] [address] Assigned Endocrinology Provider 09/10/21 [place] [address] [facility] [place] [address] Assigned Musculoskeletal Provider 09/17/21 10/14/21 Lydia Bernstein PA-C [address] [facility] [address] [facility] [address] [place] [address] Assigned PCP 10/01/21 10/21/21 Rosa Maria Love CHW Community Health Worker 10/06/21 07/11/22 [place] [address] [facility] [facility] [address] [place] [address] Assigned Musculoskeletal Provider 10/15/21 04/26/23 Paula Reza MD [address] [place] [address] Assigned PCP 10/22/21 12/23/21 Keerthi Miner APRN SIGN WRITER HAND [address] [place] [address] Assigned Heart and Vascular Provider 10/08/21 02/10/22 Shahida Sutton APRN SIGN WRITER HAND Assigned PCP 12/24/21 03/24/22 Porsha Michaels APRN SIGN WRITER HAND [address] [place] [address] Assigned Heart and Vascular Provider 02/11/22 05/12/22 Paula Reza MD [address] [place] [address] Assigned PCP 03/25/22 04/07/22 Shahida Sutton APRN SIGN WRITER HAND [address] [place] [address] Assigned PCP 04/08/22 06/30/22 Daylin Ludwig, EP [facility] [address] [place] [place] [address] Cardiac Rehabilitation Therapist 05/16/23 Laurel Velasquez MD [address] [place] [place] [address] Assigned Heart and Vascular Provider 05/13/22 06/30/22 Daylin Ludwig, EP [facility] [address] [place] [place] [address] Cardiac Rehabilitation Therapist 06/08/22 06/09/23 Paula Reza MD [address] [place], [place] [address] Assigned PCP 07/01/22 07/07/22 Porsha Michaels APRN SIGN WRITER HAND [address] [place] [address] Assigned Heart and Vascular Provider 07/01/22 07/07/22 Laurel Velasquez MD [address] [place] [address] Assigned Heart and Vascular Provider 07/08/22 08/04/22 Shahida Sutton APRN SIGN WRITER HAND Assigned PCP 07/08/22 09/08/22 Marilin Montaño, SIGN WRITER HAND [address] [place] [address] Assigned Heart and Vascular Provider 08/05/22 Esha Dewitt MD [address] [place] [address] 36 [place], [place] [address] Gastroenterology 09/06/22 Heather Mosquera MD [address] [place] [address] Internal Medicine 09/06/22 Paula Reza MD [address] [place] [address] Assigned PCP 09/09/22 01/05/23 Esha Dewitt MD [address] [facility] 36 [place] [address] Assigned Gastroenterology Provider 09/23/22 Valdo Escamilla PA-C [address] [facility] [address] [address] [place] [address] Assigned Neuroscience Provider 09/30/22 Nohelia Abarca PA-C [address] [place] [address] Physician Bluing Oven Tender Gastroenterology 10/03/22 Heather Mosquera MD [address] [place] [address] Assigned PCP 01/06/23 Fawad York MD [address] [place] [address] Assigned Musculoskeletal Provider 04/27/23 06/25/23 documented as of this encounter
--- OUTSIDE RECORDS SUMMARY | 2023-09-21 08:35 | XMS_ITS | Encounter Summary ---
Author Organization [facility] Address [address] [place] [address] Care Team Providers Care Splicing 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 Automatic Name Role Phone Shahida Sutton APRN COURT REGISTRY OFFICER Primary Care Provi ford Unavailable Shahida Sutton APRN COURT REGISTRY OFFICER Unavailable Un available Carolynn Ramon RN Unavailable Augustine Callaway MD Unavailable Brady Lion MD Unavailable Un available Nima France-C Unavailable Camille Chandler PA-C Unavailable [phone] REGISTRY OFFICER Unavailable Nima France PA-C Unavailable Basilio Morillo DO Unavailable Fawad York MD Unavailable [phone] Roopa Almonte MD Unavailable [phone] Augustine Callaway MD Unavailable Maryse Burton PA-C Unavailable [phone] Marquita Starkey MD Unavailable Roopa Almonte MD Unavailable Griffin Joshi MD Unavailable Rina Magallon RN Unavailable [phone] Paula Reza MD Primary Care Provider [phone] Griffin Joshi MD Unavailable Roopa Almonte MD Unavailable [phone] Basilio Morillo DO Unavailable Lydia Bernstein-C Unavailable Rosa Maria Love Unavailable [phone] Augustine Callaway MD Unavailable Paula Reza MD Unavailable Keerthi Miner APRN COURT REGISTRY OFFICER Unavailable [phone] Herman, Shahida Cummings APRN COURT REGISTRY OFFICER Unavailable Un available Porsha Michaels APRN COURT REGISTRY OFFICER Unavailable [phone] Paula Reza MD Unavailable Shahida Sutton APRN COURT REGISTRY OFFICER Unavailable Un available Daylin Ludwig Unavailable [phone] Laurel Velasquez MD Unavailable [phone] Daylin Ludwig Unavailable [phone] Paula Reza MD Unavailable Porsha Michaels APRN COURT REGISTRY OFFICER Unavailable [phone] Laurel Velasquez MD Unavailable [phone]ER COURT REGISTRY OFFICER Unavailable Un available Marilin Montaño COURT REGISTRY OFFICER Unavailable [phone] Esha Dewitt MD Unavailable [phone] EvelineHeather MD Unavailable [phone] Paula Reza MD Unavailable Esha Dewitt MD Unavailable [phone] Valdo Escamilla PA-C Unavailable [phone] Nohelia Abarca PA-C Unavailable [phone] Heather Mosquera MD Unavailable [phone] Fawad York MD Unavailable Encounter Details Date Type Department Care Team (Late st Contact Info) Description 07/16/2019 MyC Medical Advice [address] [address] Angela Marcelo, CHASE Social History [...] COVID-19 02/15/2020 02/15/2020 02/16/2020 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 Rule Out COVID-19 01/05/2021 01/05/2021 01/06/2021 12:57 PM CDT ESBL 01/05/2021 01/05/2021 Rule Out COVID-19 06/30/2021 06/30/2021 07/01/2021 9:34 AM CDT Rule Out COVID-19 07/25/2021 07/25/2021 07/25/2021 8:02 PM CDT Assessment Noted Time PHQ-9 Depression Total Score: 6 12/20/ 18 7:06 AM CDT documented as of this encounter Care Teams Splicing 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 Automatic Relationship Specialty Start Date End Date Shahida Sutton APRN COURT REGISTRY OFFICER PCP - General Nurse Practitioner 08/17/14 08/04/21 Paula Reza MD [address] [place] [address] PCP - General Internal Medicine 08/05/[address] REGISTRY OFFICER Assigned PCP 07/12/14 09/30/21 Carolynn Ramon, KASIE Personal Advocate & Liaison (PAL) 12/17/18 08/07/21 [place] [address] [place] [address] Assigned Musculoskeletal Provider 12/26/19 08/21/20 Brady Lion MD Assigned Heart and Vascular Provider 12/26/19 08/14/20 Nima France PA-C [address] [facility] [address] [place] [id number] Assigned Surgical Provider 05/19/20 08/21/20 Camille Chandler PA-C [address] [facility] S [facility] [address] [place] [id number] Assigned Neuroscience Provider 05/19/20 09/14/[address] REGISTRY OFFICER [address] [place] [address] Assigned Heart and Vascular Provider 08/15/20 08/05/21 Nima France PA-C [address] [place] [id number] Assigned Musculoskeletal Provider 08/22/20 11/13/20 [place] [address] [facility] [place] [address] Assigned Musculoskeletal Provider 11/14/20 12/04/20 Fawad York MD [address] [place] [address] Assigned Musculoskeletal Provider 12/05/20 02/05/21 Roopa Almonte MD [address] [facility] [address] [place] [address] Endocrinology, Diabetes, and Metabolism 01/19/21 [place] [address] [facility] [address] [place] [address] Assigned Musculoskeletal Provider 02/06/21 09/16/21 Maryse Burton PA-C [address] [place] [address] Physician Foot Orthopedist Dermatology 04/14/21 Marquita Starkey MD [address] [facility] 200 [place] [address] Internal Medicine 05/06/21 05/06/21 Roopa Almonte MD [address] [facility] 200 [place] [address] Hospitalist Endocrinology, Diabetes, and Metabolism 05/30/21 Griffin Joshi MD 6[address] [facility] [address] [place] [id number] Cardiovascular Disease 07/25/21 Rina Maglalon, RN Lead Sped Teacher 07/29/21 07/11/22 Griffin Joshi MD [address] [place] [address] Assigned Heart and Vascular Provider 08/06/21 10/07/21 Roopa Almonte MD [address] [facility] [address] [place], [place] [address] Assigned Endocrinology Provider 09/10/21 [place] [address] [facility] [place] [address] Assigned Musculoskeletal Provider 09/17/21 10/14/21 Lydia Bernstein PA-C [address] [place] [address] Assigned PCP 10/01/21 10/21/21 Rosa Maria Love CHW Community Health Worker 10/06/21 07/11/22 [place] [address] [address] [place] [address] Assigned Musculoskeletal Provider 10/15/21 04/26/23 Paula Reza MD [address] [facility] [address] [place] [address] Assigned PCP 10/22/21 12/23/[address] REGISTRY OFFICER [address] [place] [address] Assigned Heart and Vascular Provider 10/08/21 02/10/[address] REGISTRY OFFICER Assigned PCP 12/24/21 03/24/[address] REGISTRY OFFICER [address] [place] [address] Assigned Heart and Vascular Provider 02/11/22 05/12/22 Paula Reza MD [address] [place] [address] Assigned PCP 03/25/22 04/07/[address] REGISTRY OFFICER [address] [place] [address] Assigned PCP 04/08/22 06/30/22 Daylin Ludwig, EP [facility] [address] [place] [address] Cardiac Rehabilitation Therapist 05/16/23 Laurel Velasquez MD [address] [place] [address] Assigned Heart and Vascular Provider 05/13/22 06/30/22 Daylin Ludwig, MIKI [facility] [address] [place] [address] Cardiac Rehabilitation Therapist 06/08/22 06/09/23 Paula Reza MD [address] [place] [address] Assigned PCP 07/01/22 07/07/[address] REGISTRY OFFICER [address] [place] [address] Assigned Heart and Vascular Provider 07/01/22 07/07/22 Laurel Velasquez MD [address] [place] [address] Assigned Heart and Vascular Provider 07/08/22 08/04/[address] REGISTRY OFFICER Assigned PCP 07/08/22 09/08/22 Marilin Montaño, COURT REGISTRY OFFICER [address] [place] [address] Assigned Heart and Vascular Provider 08/05/22 Esha Dewitt MD [address] [address] Gastroenterology 09/06/22 Heather Mosquera MD [address] [facility] [address] [place] [id number] Internal Medicine 09/06/22 Paula Reza MD [address] [place], [place] [address] Assigned PCP 09/09/22 01/05/23 Esha Dewitt MD 420 [facility] 36 [place] [address] Assigned Gastroenterology Provider 09/23/22 Valdo Escamilla PA-C [address] [facility] [address] [place] [id number] Assigned Neuroscience Provider 09/30/22 Nohelia Abarca PA-C [address] [facility] [place] [address] Physician Foot Orthopedist Gastroenterology 10/03/22 Heather Mosquera MD [address] [place] [id number] Assigned PCP 01/06/23 Fawad York MD [address] [place], [place] [address] Assigned Musculoskeletal Provider 04/27/23 06/25/23 documented as of this encounter
--- OUTSIDE RECORDS SUMMARY | 2023-09-21 08:35 | XMS_ITS | Encounter Summary ---
Author Organization [facility] Address [address] [place] [address] Care Team Providers Care Campus Chaplain Name Role Phone Shahida Sutton APRN ALTERATIONS MANAGER Primary Care Provi ford Unavailable Shahida Sutton APRN ALTERATIONS MANAGER Unavailable Un available Carolynn Ramon RN Unavailable [phone] Augustine Callaway MD Unavailable Brady Lion MD Unavailable Un available Nima France-C Unavailable Camille Chandler PA-C Unavailable [phone] Anabela Barakat APRN ALTERATIONS MANAGER Unavailable Nima France PA-C Unavailable Basilio Morillo DO Unavailable [phone] Fawad York MD Unavailable Roopa Almonte MD Unavailable Augustine Callaway MD Unavailable Maryse Burton PA-C Unavailable Marquita Starkey MD Unavailable Roopa Almonte MD Unavailable Griffin Joshi MD Unavailable Rina Magallon RN Unavailable [phone] Paula Reza MD Primary Care Provider [phone] Griffin Joshi MD Unavailable Roopa Almonte MD Unavailable [phone] Basilio Morillo DO Unavailable Lydia Bernstein-C Unavailable Rosa Maria Love Unavailable [phone] Augustine Callaway MD Unavailable Paula Reza MD Unavailable Keerthi Miner APRN ALTERATIONS MANAGER Unavailable [phone] Herman, Shahida Cummings APRN ALTERATIONS MANAGER Unavailable Un available Porsha Michaels APRN ALTERATIONS MANAGER Unavailable [phone] Paula Reza MD Unavailable Shahida Sutton APRN ALTERATIONS MANAGER Unavailable Un available Daylin Ludwig Unavailable [phone] Laurel Velasquez MD Unavailable [phone] Daylin Ludwig Unavailable [phone] Paula Reza MD Unavailable Porsha Michaels APRN ALTERATIONS MANAGER Unavailable [phone] Laurel Velasquez MD Unavailable [phone] Shahida Sutton DIRECTOR OF TRANSPORTATION ALTERATIONS MANAGER Unavailable Un available Marilin Montaño ALTERATIONS MANAGER Unavailable [phone] Esha Dewitt MD Unavailable [phone] EvelineHeather MD Unavailable [phone] Paula Reza MD Unavailable Esha Dewitt MD Unavailable [phone] Andi Valdo Desouza PA-C Unavailable Nohelia Abarca PA-C Unavailable [phone] Heather Mosquera MD Unavailable Fawad York MD Unavailable [phone] Reason for Visit * Reason Comments Medication Refill Encounter Details Date Type Department Care Team (Late st Contact Info) Description 09/17/[address] [address] Shahida Sutton APRN ALTERATIONS MANAGER Medication Refill Social History Tobacco Use Types [...] 09/17/2018 10:36 AM CDT Prescription approved per [facility] Refill Protocol. Raven Perry RN on 09/17/2018 [...] Out COVID-19 02/15/2020 02/15/2020 02/16/2020 2:32 PM CLEARING HAND Rule Out COVID-19 01/05/2021 01/05/2021 01/06/2021 12:57 PM CDT ESBL 01/05/2021 01/05/2021 Rule Out COVID-19 06/30/2021 06/30/2021 07/01/2021 9:34 AM CDT Rule Out COVID-19 07/25/2021 07/25/2021 07/25/2021 8:02 PM CDT Assessment Noted Time PHQ-9 Depression Total Score: 6 12/21/19 18 7:06 AM CDT documented as of this encounter Care Teams Campus Chaplain Relationship Specialty Start Date End Date Shahida Sutton APRN ALTERATIONS MANAGER PCP - General Nurse Practitioner 08/17/14 08/04/21 Paula Reza MD [address] [facility] 200 [place] [address] PCP - General Internal Medicine 08/05/21 Shahida Sutton APRN ALTERATIONS MANAGER Assigned PCP 07/12/14 09/30/21 Carolynn Ramon, KASIE Personal Advocate & Liaison (PAL) 12/17/18 08/07/21 [place] [address] [place] [address] Assigned Musculoskeletal Provider 12/26/19 08/21/20 Brady Lion MD Assigned Heart and Vascular Provider 12/26/19 08/14/20 Nima France PA-C [address] [place] [address] Assigned Surgical Provider 05/19/20 08/21/20 Camille Chandler PA-C [address] [place] [address] Assigned Neuroscience Provider 05/19/20 09/14/20 Anabela Barakat APRN ALTERATIONS MANAGER [address] [place] [address] Assigned Heart and Vascular Provider 08/15/20 08/05/21 Nima France PA-C [address] [facility] [address] [place] [address] Assigned Musculoskeletal Provider 08/22/20 11/13/20 [place] [address] [facility] [place] [address] Assigned Musculoskeletal Provider 11/14/20 12/04/20 Fawad York MD [address] [place], [place] [address] Assigned Musculoskeletal Provider 12/05/20 02/05/21 Roopa Almonte MD [address] [facility] 200 [place] [address] Endocrinology, Diabetes, and Metabolism 01/19/21 [place] [address] [facility] 300 [place] [address] Assigned Musculoskeletal Provider 02/06/21 09/16/21 Maryse Burton PA-C [address] [place] [address] Physician Machine Leather Trimmer Dermatology 04/14/21 Marquita Starkey MD [address] [facility] 200 [place] [address] Internal Medicine 05/06/21 05/06/21 Roopa Almonte MD [address] [facility] [address] [place] [address] Hospitalist Endocrinology, Diabetes, and Metabolism 05/30/21 Griffin Joshi MD [address] [place] [address] Cardiovascular Disease 07/25/21 Rina Magallon, RN Lead Starchmaker 07/29/21 07/11/22 Griffin Joshi MD [address] [place] [address] Assigned Heart and Vascular Provider 08/06/21 10/07/21 Roopa Almonte MD [address] [place] [address] 200 [place], [place] [address] Assigned Endocrinology Provider 09/10/21 [place] [address] [facility] [place] [address]39 Assigned Musculoskeletal Provider 09/17/21 10/14/21 Lydia Bernstein PA-C [address] [place] [id number] Assigned PCP 10/01/21 10/21/21 Rosa Maria Love Cristina Community Health Worker 10/06/21 07/11/22 [place] [address] [facility] [address] [place], [place] [address] Assigned Musculoskeletal Provider 10/15/21 04/26/23 Paula Reza MD [address] [facility] 200 [place], [place] [address] Assigned PCP 10/22/21 12/23/21 Keerthi Miner APRN ALTERATIONS MANAGER [address] [place] [address] Assigned Heart and Vascular Provider 10/08/21 02/10/22 Shahida Sutton APRN ALTERATIONS MANAGER Assigned PCP 12/24/21 03/24/22 Porsha Michaels APRN ALTERATIONS MANAGER [address] [place] [address] Assigned Heart and Vascular Provider 02/11/22 05/12/22 Paula Reza MD [address] [place] [address] Assigned PCP 03/25/22 04/07/22 Shahida Sutton, DIRECTOR OF TRANSPORTATION ALTERATIONS MANAGER [address] [place] [address] Assigned PCP 04/08/22 06/30/22 Daylin Ludwig, MIKI [facility] [address] [place] [address] Cardiac Rehabilitation Therapist 05/16/23 Laurel Velasquez MD [address] [place] [address] Assigned Heart and Vascular Provider 05/13/22 06/30/22 Daylin Ludwig EP [facility] [address] [place] [address] Cardiac Rehabilitation Therapist 06/08/22 06/09/23 Paula Reza MD [address] [place] [address] Assigned PCP 07/01/22 07/07/22 Porsha Michaels APRN ALTERATIONS MANAGER [address] [place] [address] Assigned Heart and Vascular Provider 07/01/22 07/07/22 Laurel Velasquez MD [address] [place] [address] Assigned Heart and Vascular Provider 07/08/22 08/04/22 Shahida Sutton APRN ALTERATIONS MANAGER Assigned PCP 07/08/22 09/08/22 Marilin Montaño, ALTERATIONS MANAGER [address] [place] [address] Assigned Heart and Vascular Provider 08/05/22 Esha Dewitt MD 420 [facility] 36 [place] [address] Gastroenterology 09/06/22 Heather Mosquera MD [address] [place] [address] Internal Medicine 09/06/22 Paula Reza MD [address] [facility] 200 [place] [address] Assigned PCP 09/09/22 01/05/23 Esha Dewitt MD 420 [facility] 36 [place] [address] Assigned Gastroenterology Provider 09/23/22 Valdo Escamilla PA-C [address] [facility] [address] [place], [place] [address] Assigned Neuroscience Provider 09/30/22 Nohelia Abarca PA-C [address] [place], [place] [address] Physician Machine Leather Trimmer Gastroenterology 10/03/22 Heather Mosquera MD [address] [address] Assigned PCP 01/06/23 Fawad York MD [address] [place], [place] [address] Assigned Musculoskeletal Provider 04/27/23 06/25/23 documented as of this encounter
--- OUTSIDE RECORDS SUMMARY | 2023-09-21 08:35 | XMS_ITS | Encounter Summary ---
Author Organization [facility] Address [address] [place] [address] Care Team Providers Care Medical Education Coordinator Name Role Phone Shahida Sutton APRN MEAT COOLER Primary Care Provi ford Unavailable Shahida Sutton APRN MEAT COOLER Unavailable Un available Carolynn Ramon RN Unavailable [phone] Augustine Callaway MD Unavailable Brady Lion MD Unavailable Un available Nima France-C Unavailable Camille Chandler PA-C Unavailable [phone] Anabela Barakat APRN MEAT COOLER Unavailable Nima France PA-C Unavailable Basilio Morillo DO Unavailable Fawad York MD Unavailable [phone] Roopa Almonte MD Unavailable Augustine Callaway MD Unavailable Maryse Burton PA-C Unavailable [phone] Marquita Starkey MD Unavailable [phone] Roopa Almonte MD Unavailable Griffin Joshi MD Unavailable Rina Magallon RN Unavailable [phone] Paula Reza MD Primary Care Provider [phone] Griffin Joshi MD Unavailable Roopa Almonte MD Unavailable [phone] Basilio Morillo DO Unavailable Lydia Bernstein-C Unavailable Rosa Maria Love Unavailable [phone] Augustine Callaway MD Unavailable Paula Reza MD Unavailable Keerthi Miner APRN MEAT COOLER Unavailable [phone] Herman, Shahida Cummings APRN MEAT COOLER Unavailable Un available Porsha Michaels APRN MEAT COOLER Unavailable [phone] aPula Reza MD Unavailable Shahida Sutton APRN MEAT COOLER Unavailable Un available Daylin Ludwig Unavailable [phone] Laurel Velasquez MD Unavailable [phone] Daylin Ludwig Unavailable [phone] Paula Reza MD Unavailable Porsha Michaels APRN MEAT COOLER Unavailable [phone] Laurel Velasquez MD Unavailable [phone] Shahida Sutton PREDICTIVE MAINTENANCE TECHNICIAN MEAT COOLER Unavailable Un available Marilin Montaño MEAT COOLER Unavailable [phone] Esha Dewitt MD Unavailable [phone] EvelineHeather MD Unavailable [phone] Paula Reza MD Unavailable Esha Dewitt MD Unavailable [phone] Andi Valdo Desouza PA-C Unavailable Nohelia Abarca PA-C Unavailable [phone] Heather Mosquera MD Unavailable Fawad York MD Unavailable Encounter Details Date Type Department Care Team (Late st Contact Info) Description 03/11/[address] [facility] [place] [address] [place] [address] [address] [place] [address] Aneta Campbell APRN [facility] [address] [place] [address] [address] [place], [place] [id number] Social History Tobacco Use Types Packs/Day Years [...] Out COVID-19 02/15/2020 02/15/2020 02/16/2020 2:[address] HOGGER OPERATOR Rule Out COVID-19 01/05/2021 01/05/2021 01/06/2021 12:57 PM CDT ESBL 01/05/2021 01/05/2021 Rule Out COVID-19 06/30/2021 06/30/2021 07/01/2021 9:34 AM CDT Rule Out COVID-19 07/25/2021 07/25/2021 07/25/2021 8:02 PM CDT Assessment Noted Time PHQ-9 Depression Total Score: 6 12/21/19 18 7:06 AM CDT documented as of this encounter Care Teams Medical Education Coordinator Relationship Specialty Start Date End Date Shahida Sutton APRN MEAT COOLER PCP - General Nurse Practitioner 08/17/14 08/04/21 Paula Reza MD [address] [facility] [address] [place] [address] PCP - General Internal Medicine 08/05/21 Shahida Sutton APRN MEAT COOLER Assigned PCP 07/12/14 09/30/21 Carolynn Ramon, KASIE Personal Advocate & Liaison (PAL) 12/17/18 08/07/21 [place] [address] [place] [address] Assigned Musculoskeletal Provider 12/26/19 08/21/20 Brady Lion MD Assigned Heart and Vascular Provider 12/26/19 08/14/20 Nima France PA-C [address] [facility] [address] [address] [place] [address] Assigned Surgical Provider 05/19/20 08/21/20 Camille Chandler PA-C [address] [place] [address] Assigned Neuroscience Provider 05/19/20 09/14/20 Anabela Barakat APRN MEAT COOLER [address] [place] [address] Assigned Heart and Vascular Provider 08/15/20 08/05/21 Nima France PA-C [address] [facility] [address] [place], [place] [address] Assigned Musculoskeletal Provider 08/22/20 11/13/20 [place] [address] [place], [place] [address] Assigned Musculoskeletal Provider 11/14/20 12/04/20 Fawad York MD [address] [place], [place] [address] Assigned Musculoskeletal Provider 12/05/20 02/05/21 Roopa Almonte MD [address] [employer] [facility] 200 [place] [address] Endocrinology, Diabetes, and Metabolism 01/19/21 [place] [address] [facility] [address] [place], [place] [address] Assigned Musculoskeletal Provider 02/06/21 09/16/21 Maryse Burton PA-C [address] [place] [address] Physician Legal Administrative Assistant Dermatology 04/14/21 Marquita Starkey MD [address] [facility] [address] [place], [place] [address] Internal Medicine 05/06/21 05/06/21 Roopa Almonte MD [address] [facility] 200 [place] [address] Hospitalist Endocrinology, Diabetes, and Metabolism 05/30/21 Griffin Joshi MD [address] [facility] [address] [place] [address] Cardiovascular Disease 07/25/21 Rina Magallon, RN Lead Switch Tender 07/29/21 07/11/22 Griffin Joshi MD [address] [facility] [address] [place] [address] Assigned Heart and Vascular Provider 08/06/21 10/07/21 Roopa Almonte MD [address] [address] [place] [address] Assigned Endocrinology Provider 09/10/21 [place] [address] [facility] [place] [address] Assigned Musculoskeletal Provider 09/17/21 10/14/21 Lydia Bernstein PA-C [address] [facility] [address] [place] [address] Assigned PCP 10/01/21 10/21/21 Rosa Maria Love CHW Community Health Worker 10/06/21 07/11/22 [place] [address] [address] [facility] [address] [place] [address] Assigned Musculoskeletal Provider 10/15/21 04/26/23 Paula Reza MD [address] [facility] [address] [place] [address] Assigned PCP 10/22/21 12/23/21 Keerthi Miner APRN MEAT COOLER [address] [place] [address] Assigned Heart and Vascular Provider 10/08/21 02/10/22 Shahida Sutton APRN MEAT COOLER Assigned PCP 12/24/21 03/24/22 Porsha Michaels APRN MEAT COOLER [address] [place] [address] Assigned Heart and Vascular Provider 02/11/22 05/12/22 Paula Reza MD [address] [facility] [address] [place] [address] Assigned PCP 03/25/22 04/07/22 Shahida Sutton APRN MEAT COOLER [address] [place] [address] Assigned PCP 04/08/22 06/30/22 Daylin Ludwig, EP [facility] [address] [place] [address] Cardiac Rehabilitation Therapist 05/16/23 Laurel Velasquez MD [address] [place] [address] Assigned Heart and Vascular Provider 05/13/22 06/30/22 Daylin Ludwig, MIKI [facility] [address] [place] [address] Cardiac Rehabilitation Therapist 06/08/22 06/09/23 Paula Reza MD [address] [place], [place] [address] Assigned PCP 07/01/22 07/07/22 Porsha Michaels APRN MEAT COOLER [address] [place] [address] Assigned Heart and Vascular Provider 07/01/22 07/07/22 Laurel Velasquez MD [address] [place] [address] Assigned Heart and Vascular Provider 07/08/22 08/04/22 Shahida Sutton APRN MEAT COOLER Assigned PCP 07/08/22 09/08/22 Marilin Montaño, MEAT COOLER [address] [place] [address] Assigned Heart and Vascular Provider 08/05/22 Esha Dewitt MD [address] [place] [address] 36 [place], [place] [address] Gastroenterology 09/06/22 Heather Mosquera MD [address] [place] [address] Internal Medicine 09/06/22 Paula Reza MD [address] [place] [address] Assigned PCP 09/09/22 01/05/23 Esha Dewitt MD [address] [facility] 36 [place] [address] Assigned Gastroenterology Provider 09/23/22 Valdo Escamilla PA-C [address] [facility] [address] [place] [address] Assigned Neuroscience Provider 09/30/22 Nohelia Abarca PA-C [address] [facility] [place] [address] Physician Legal Administrative Assistant Gastroenterology 10/03/22 Heather Mosquera MD [address] [facility] [address] [place] [address] Assigned PCP 01/06/23 Fawad York MD [address] [place] [address] Assigned Musculoskeletal Provider 04/27/23 06/25/23 documented as of this encounter
--- OUTSIDE RECORDS SUMMARY | 2023-09-21 08:36 | XMS_ITS | Encounter Summary ---
Author Organization [facility] Address [address] [place] [address] Care Team Providers Care Orchard Pruner Name Role Phone HermanShahida huerta APRN PARK MAINTAINER Primary Care Provi ford Unavailable Herman, Shahida Cummings APRN PARK MAINTAINER Unavailable Un available Herman, Shahida Cummings APRN PARK MAINTAINER Unavailable Un available Carolynn Ramon RN Unavailable [phone] Augustine Callaway MD Unavailable Brady Lion MD Unavailable Un available Nima France-C Unavailable [phone] Camille Chandler PA-C Unavailable [phone] Anabela Barakat APRN PARK MAINTAINER Unavailable Nima France PA-C Unavailable Basilio Morillo DO Unavailable [phone] Fawad York MD Unavailable [phone] Roopa Almonte MD Unavailable [phone] Augustine Callaway MD Unavailable Maryse Burton PA-C Unavailable Marquita Starkey MD Unavailable Roopa Almonte MD Unavailable [phone] Griffin Joshi MD Unavailable Rina Magallon RN Unavailable [phone] Paula Reza MD Primary Care Provider [phone] Griffin Joshi MD Unavailable Roopa Almonte MD Unavailable [phone] [facility] Basilio Naik Unavailable Lydia Bernstein PA-C Unavailable Rosa Maria Love Unavailable [phone] Augustine Callaway MD Unavailable Paula Reza MD Unavailable Keerthi Miner APRN PARK MAINTAINER Unavailable [phone] Herman, Shahida Cummings APRN PARK MAINTAINER Unavailable Un available Porsha Michaels APRN PARK MAINTAINER Unavailable [phone] Paula Reza MD Unavailable Herman, Shahida Cummings APRN PARK MAINTAINER Unavailable Un available Daylin Ludwig Unavailable [phone] Laurel Velasquez MD Unavailable [phone] Daylin Ludwig Unavailable [phone] Paula Reza MD Unavailable Porsha Michaels APRN PARK MAINTAINER Unavailable [phone] Laurel Velasquez MD Unavailable [phone] Herman, Shahida Cummings APRN PARK MAINTAINER Unavailable Un available Marilin Montaño PARK MAINTAINER Unavailable [phone] Esha Dewitt MD Unavailable [phone] Heather Mosquera MD Unavailable [phone] Paula Reza MD Unavailable Esha Dewitt MD Unavailable [phone] Valdo Escamilla PA-C Unavailable [phone] Nohelia Abarca PA-C Unavailable [phone] Heather Mosquera MD Unavailable [phone] Fawad York MD Unavailable [phone] Encounter Details Date Type Department Care Team (Late st Contact Info) Description 09/23/2015 MyC Medical Advice [address] [address] Matilde Allen CMA Social History [...] Out COVID-19 02/15/2020 02/15/2020 02/16/2020 2:32 PM 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 Rule Out COVID-19 01/05/2021 01/05/2021 01/06/2021 12:57 PM CDT ESBL 01/05/2021 01/05/2021 Rule Out COVID-19 06/30/2021 06/30/2021 07/01/2021 9:34 AM CDT Rule Out COVID-19 07/25/2021 07/25/2021 07/25/2021 8:02 PM CDT Assessment Noted Time PHQ-9 Depression Total Score: 8 10/01/19 16 7:13 AM CDT documented as of this encounter Care Teams Orchard Pruner Relationship Specialty Start Date End Date Shahida Sutton APRN PARK MAINTAINER PCP - General Nurse Practitioner 08/17/14 08/04/21 Shahida Sutton, DUANE PARK MAINTAINER PCP - Assigned PCP 07/12/14 05/07/18 Paula Reza MD [address] [place] [address] PCP - General Internal Medicine 08/05/21 Shahida Sutton, EAP SPECIALIST PARK MAINTAINER Assigned PCP 07/12/14 09/30/21 Carolynn Ramon, KASIE Personal Advocate & Liaison (PAL) 12/17/18 08/07/21 [place] [address] [place] [address] [place] [address] Assigned Musculoskeletal Provider 12/26/19 08/21/20 Brady Lion MD Assigned Heart and Vascular Provider 12/26/19 08/14/20 Nima France PA-C [address] [place] [address] Assigned Surgical Provider 05/19/20 08/21/20 Camille Chandler PA-C [address] [place] [address] Assigned Neuroscience Provider 05/19/20 09/14/20 Anabela Barakat APRN PARK MAINTAINER [address] [place] [address] Assigned Heart and Vascular Provider 08/15/20 08/05/21 Nima France PA-C [address] [place] [address] Assigned Musculoskeletal Provider 08/22/20 11/13/20 [place] [address] [facility] [place] [address] Assigned Musculoskeletal Provider 11/14/20 12/04/20 Fawad York MD 9[address] [place], [place] [address] Assigned Musculoskeletal Provider 12/05/20 02/05/21 Roopa Almonte MD [address] [facility] 200 [place], [place] [address] Endocrinology, Diabetes, and Metabolism 01/19/21 [place] [address] [facility] 300 [place] [address] Assigned Musculoskeletal Provider 02/06/21 09/16/21 Maryse Burton PA-C [address] [place] [address] Physician Landscape Manager Dermatology 04/14/21 Marquita Starkey MD [address] [facility] 200 [place], [place] [address] Internal Medicine 05/06/21 05/06/21 Roopa Almonte MD [address] [place] [address] Hospitalist Endocrinology, Diabetes, and Metabolism 05/30/21 Griffin Joshi MD [address] [facility] [address] [place] [address] Cardiovascular Disease 07/25/21 Rina Magallon, RN Lead Railroad Dining Car Stewardess 07/29/21 07/11/22 Griffin Joshi MD [address] [place] [address] Assigned Heart and Vascular Provider 08/06/21 10/07/21 Roopa Almonte MD [address] [place] [address] 200 [place] [address] Assigned Endocrinology Provider 09/10/21 [place] [address] [facility] [place] [address] Assigned Musculoskeletal Provider 09/17/21 10/14/21 Lydia Bernstein PA-C [address] [place] [address] Assigned PCP 10/01/21 10/21/21 Rosa Maria Love CHW Community Health Worker 10/06/21 07/11/22 [place] [address] [facility] 300 [place] [address] Assigned Musculoskeletal Provider 10/15/21 04/26/23 Paula Reza MD [address] [facility] 200 [place], [place] [address] Assigned PCP 10/22/21 12/23/21 Keerthi Miner EAP SPECIALIST PARK MAINTAINER [address] [place] [address] Assigned Heart and Vascular Provider 10/08/21 02/10/22 Shahida Sutton APRN PARK MAINTAINER Assigned PCP 12/24/21 03/24/22 Porsha Michaels APRN PARK MAINTAINER [address] [place] [address] Assigned Heart and Vascular Provider 02/11/22 05/12/22 Paula Reza MD [address] [facility] 200 [place] [address] Assigned PCP 03/25/22 04/07/22 Shahida Sutton EAP SPECIALIST PARK MAINTAINER [address] [place] [address] Assigned PCP 04/08/22 06/30/22 Daylin Ludwig, MIKI [facility] [address] [place] [address] Cardiac Rehabilitation Therapist 05/16/23 Laurel Velasquez MD [address] [place] [address] Assigned Heart and Vascular Provider 05/13/22 06/30/22 Daylin Ludwig, MIKI [facility] [address] [place] [address] Cardiac Rehabilitation Therapist 06/08/22 06/09/23 Puala Reza MD [address] [place] [address] Assigned PCP 07/01/22 07/07/22 Porsha Michaels APRN PARK MAINTAINER [address] [place] [address] Assigned Heart and Vascular Provider 07/01/22 07/07/22 Laurel Velasquez MD [address] [place] [address] Assigned Heart and Vascular Provider 07/08/22 08/04/22 Shahida Sutton APRN PARK MAINTAINER Assigned PCP 07/08/22 09/08/22 Marilin Montaño PARK MAINTAINER [address] [place] [address] Assigned Heart and Vascular Provider 08/05/22 Esha Dewitt MD [address] [place] [address] Gastroenterology 09/06/22 Heather Mosquera MD [address] [place] [address] Internal Medicine 09/06/22 Paula Reza MD [address] [place] [address] Assigned PCP 09/09/22 01/05/23 Esha Dewitt MD [address] [place] [address] Assigned Gastroenterology Provider 09/23/22 Valdo Escamilla PA-C [address] [facility] [address] [place] [address] Assigned Neuroscience Provider 09/30/22 Nohelia Abarca PA-C [address]50 [place] [address] Physician Landscape Manager Gastroenterology 10/03/22 Heather Mosquera MD [address]45 [facility] 150 [place] [address] Assigned PCP 01/06/23 Fawad York MD 909 [place] [address] Assigned Musculoskeletal Provider 04/27/23 06/25/23 documented as of this encounter
--- OUTSIDE RECORDS SUMMARY | 2023-09-21 08:36 | XMS_ITS | Encounter Summary ---
Author Organization [facility] Address [address] [place] [address] Care Team Providers Care Sap Portal Architect Name Role Phone HermanShahida huerta APRN SACK REPAIRER Primary Care Provi ford Unavailable Herman, Shahida Cummings APRN SACK REPAIRER Unavailable Un available Herman, Shahida Cummings APRN SACK REPAIRER Unavailable Un available Carolynn Ramon RN Unavailable [phone] Augustine Callaway MD Unavailable Brady Lion MD Unavailable Un available Nima France-C Unavailable [phone] Camille Chnadler PA-C Unavailable [phone] Anabela Barakat APRN SACK REPAIRER Unavailable Nima France PA-C Unavailable Basilio Morillo DO Unavailable Fawad York MD Unavailable [phone] Roopa Almonte MD Unavailable [phone] Augustine Callaway MD Unavailable Maryse Burton PA-C Unavailable Marquita Starkey MD Unavailable Roopa Almonte MD Unavailable [phone] Griffin Joshi MD Unavailable Rina Magallon RN Unavailable [phone] Paula Reza MD Primary Care Provider [phone] Griffin Joshi MD Unavailable Roopa Almonte MD Unavailable [phone] [facility] Basilio Naik Unavailable Lydia Bernstein PA-C Unavailable Rosa Maria Love Unavailable [phone] Augustine Callaway MD Unavailable Paula Reza MD Unavailable Keerthi Miner APRN SACK REPAIRER Unavailable [phone] Herman, Shahida Cummings APRN SACK REPAIRER Unavailable Un available Porsha Michaels APRN SACK REPAIRER Unavailable [phone] Paula Reza MD Unavailable Herman, Shahida Cummings APRN SACK REPAIRER Unavailable Un available Daylin Ludwig Unavailable [phone] Laurel Velasquez MD Unavailable [phone] Daylin Ludwig Unavailable [phone] Paula Reza MD Unavailable Porsha Michaels APRN SACK REPAIRER Unavailable [phone] Laurel Velasquez MD Unavailable [phone] Herman, Shahida Cummings APRN SACK REPAIRER Unavailable Un available Marilin Montaño SACK REPAIRER Unavailable [phone] Esha Dewitt MD Unavailable [phone] Heather Mosquera MD Unavailable [phone] Paula Reza MD Unavailable Esha Dewitt MD Unavailable [phone] Valdo Escamilla PA-C Unavailable Nohelia Abarca PA-C Unavailable [phone] Heather Mosquera MD Unavailable Fawad York MD Unavailable [phone] Encounter Details Date Type Department Care Team (Late st Contact Info) Description 04/07/2015 MyC Medical Advice [address] [address] Matilde Allen CMA Social History [...] Out COVID-19 02/15/2020 02/15/2020 02/16/2020 2:32 PM BUSBOY Rule Out COVID-19 01/05/2021 01/05/2021 01/06/2021 12:57 PM CDT ESBL 01/05/2021 01/05/2021 Rule Out COVID-19 06/30/2021 06/30/2021 07/01/2021 9:34 AM CDT Rule Out COVID-19 07/25/2021 07/25/2021 07/25/2021 8:02 PM CDT Assessment Noted Time PHQ-9 Depression Total Score: 5 01/31/20 15 7:38 AM BUSBOY documented as of this encounter Care Teams Sap Portal Architect Relationship Specialty Start Date End Date Shahida Sutton APRN SACK REPAIRER PCP - General Nurse Practitioner 08/17/14 08/04/21 Shahida Sutton, DUANE SACK REPAIRER PCP - Assigned PCP 07/12/14 05/07/18 Paula Reza MD [address] [place] [address] PCP - General Internal Medicine 08/05/21 Shahida Sutton, LOOP MACHINE OPERATOR SACK REPAIRER Assigned PCP 07/12/14 09/30/21 Carolynn Ramon, KASIE Personal Advocate & Liaison (PAL) 12/17/18 08/07/21 [place] [address] [place] [address] Assigned Musculoskeletal Provider 12/26/19 08/21/20 Brady Lion MD Assigned Heart and Vascular Provider 12/26/19 08/14/20 Nima France PA-C [address] [facility] [address] [place] [address] Assigned Surgical Provider 05/19/20 08/21/20 Camille Chandler PA-C [address] [facility] [address] [place] [address] Assigned Neuroscience Provider 05/19/20 09/14/20 Anabela Barakat APRN SACK REPAIRER [address] [place] [address] Assigned Heart and Vascular Provider 08/15/20 08/05/21 Nima France PA-C [address] [place] [address] Assigned Musculoskeletal Provider 08/22/20 11/13/20 [place] [address] [facility] [place] [address] Assigned Musculoskeletal Provider 11/14/20 12/04/20 Fawad York MD [address] [place], [place] [address] Assigned Musculoskeletal Provider 12/05/20 02/05/21 Roopa Almonte MD [address] [facility] 200 [place] [address] Endocrinology, Diabetes, and Metabolism 01/19/21 [place] [address] [facility] [address] [place] [address] Assigned Musculoskeletal Provider 02/06/21 09/16/21 Maryse Burton PA-C [address] [place] [address] Physician Rn Radiology Dermatology 04/14/21 Marquita Starkey MD [address] [facility] 200 [place] [address] Internal Medicine 05/06/21 05/06/21 Roopa Almonte MD [address] [place] [address] Hospitalist Endocrinology, Diabetes, and Metabolism 05/30/21 Griffin Joshi MD [address] [facility] [address] [place] [address] Cardiovascular Disease 07/25/21 Rina Magallon, RN [employer] 07/29/21 07/11/22 Griffin Joshi MD [address] [place] [address] Assigned Heart and Vascular Provider 08/06/21 10/07/21 Roopa Almonte MD [address] [place] [address] 200 [place], [place] [address] Assigned Endocrinology Provider 09/10/21 [place] [address] Replaced by [facility] [place] [address] Assigned Musculoskeletal Provider 09/17/21 10/14/21 Lydia Bernstein PA-C [address] [facility] [address] [place] [address] Assigned PCP 10/01/21 10/21/21 Rosa Maria Love CHW Community Health Worker 10/06/21 07/11/22 [place] [address] [facility] [address] [place] [address] Assigned Musculoskeletal Provider 10/15/21 04/26/23 Paula Reza MD [address] [facility] [address] [place], [place] [address] Assigned PCP 10/22/21 12/23/21 Keerthi Miner APRN SACK REPAIRER [address] [place] [address] Assigned Heart and Vascular Provider 10/08/21 02/10/22 Shahida Sutton APRN SACK REPAIRER Assigned PCP 12/24/21 03/24/22 Porsha Michaels APRN SACK REPAIRER [address] [place] [address] Assigned Heart and Vascular Provider 02/11/22 05/12/22 Paula Reza MD [address] [facility] 200 [place] [address] Assigned PCP 03/25/22 04/07/22 Shahida Sutton LOOP MACHINE OPERATOR SACK REPAIRER [address] [place] [address] Assigned PCP 04/08/22 06/30/22 Daylin Ludwig, MIKI [facility] [address] [place] [address] Cardiac Rehabilitation Therapist 05/16/23 Laurel Velasquez MD [address] [place] [address] Assigned Heart and Vascular Provider 05/13/22 06/30/22 Daylin Ludwig, MIKI [facility] [address] [place] [address] Cardiac Rehabilitation Therapist 06/08/22 06/09/23 Paula Reza MD [address] [place] [address] Assigned PCP 07/01/22 07/07/22 Porsha Michaels APRN SACK REPAIRER [address] [place] [address] Assigned Heart and Vascular Provider 07/01/22 07/07/22 Laurel Velasquez MD [address] [place] [address] Assigned Heart and Vascular Provider 07/08/22 08/04/22 Shahida Sutton APRN SACK REPAIRER Assigned PCP 07/08/22 09/08/22 Marilin Montaño, SACK REPAIRER [address] [place] [address] Assigned Heart and Vascular Provider 08/05/22 Esha Dewitt MD [address] [place] [address] Gastroenterology 09/06/22 Heather Mosquera MD [address] [place] [address] Internal Medicine 09/06/22 Paula Reza MD [address] [place] [address] Assigned PCP 09/09/22 01/05/23 Esha Dewitt MD [address] [place] [address] Assigned Gastroenterology Provider 09/23/22 Valdo Escamilla PA-C [address] [facility] [address] [place] [address] Assigned Neuroscience Provider 09/30/22 Nohelia Abarca PA-C [address] [place] [address] Physician Rn Radiology Gastroenterology 10/03/22 Heather Mosquera MD [address] [facility] 150 [place] [address] Assigned PCP 01/06/23 Fawad York MD [address] [place] [address] Assigned Musculoskeletal Provider 04/27/23 06/25/23 documented as of this encounter
--- OUTSIDE RECORDS SUMMARY | 2023-09-21 08:36 | XMS_ITS | Encounter Summary ---
Author Organization [facility] Address [address] [place] [address] Care Team Providers Care Turntable Worker Name Role Phone HermanShahida huerta APRN TAX APPRAISER Primary Care Provi ford Unavailable Herman, Shahida Cummings APRN TAX APPRAISER Unavailable Un available Herman, Shahida Cummings APRN TAX APPRAISER Unavailable Un available Carolynn Ramon RN Unavailable [phone] Augustine Callaway MD Unavailable Brady Lion MD Unavailable Un available Nima France-C Unavailable [phone] Camille Chandler PA-C Unavailable [phone] Anabela Barakat APRN TAX APPRAISER Unavailable Nima France PA-C Unavailable Basilio Morillo DO Unavailable [phone] Fawad York MD Unavailable [phone] Roopa Almonte MD Unavailable [phone] Augustine Callaway MD Unavailable Maryse Burton PA-C Unavailable Marquita Starkey MD Unavailable [phone] Roopa Almonte MD Unavailable [phone] Griffin Joshi MD Unavailable Rina Magallon RN Unavailable [phone] Paula Reza MD Primary Care Provider [phone] Griffin Joshi MD Unavailable Roopa Almonte MD Unavailable [phone] [facility] Basilio Naik Unavailable Lydia Bernstein PA-C Unavailable Rosa Maria Love Unavailable [phone] Augustine Callaway MD Unavailable Paula Reza MD Unavailable Keertih Miner APRN TAX APPRAISER Unavailable [phone] Herman, Shahida Cummings APRN TAX APPRAISER Unavailable Un available Porsha Michaels APRN TAX APPRAISER Unavailable [phone] Paula Reza MD Unavailable Herman, Shahida Cummings APRN TAX APPRAISER Unavailable Un available Daylin Ludwig Unavailable [phone] Laurel Velasquez MD Unavailable [phone] Daylin Ludwig Unavailable [phone] Paula Reza MD Unavailable Porsha Michaels APRN TAX APPRAISER Unavailable [phone] Laurel Velasquez MD Unavailable [phone] Herman, Shahida Cummings APRN TAX APPRAISER Unavailable Un available Marilin Montaño TAX APPRAISER Unavailable [phone] Esha Dewitt MD Unavailable [phone] Heather Mosquera MD Unavailable [phone] Paula Reza MD Unavailable Esha Dewitt MD Unavailable [phone] Valdo Escamilla PA-C Unavailable [phone] Nohelia Abarca PA-C Unavailable [phone] Heather Mosquera MD Unavailable [phone] Fawad York MD Unavailable [phone] Encounter Details Date Type Department Care Team (Late st Contact Info) Description 08/01/2016 MyC Medical Advice [address] [address] Matilde Allen CMA Social History [...] Out COVID-19 02/15/2020 02/15/2020 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 Rule Out COVID-19 01/05/2021 01/05/2021 01/06/2021 12:57 PM CDT ESBL 01/05/2021 01/05/2021 Rule Out COVID-19 06/30/2021 06/30/2021 07/01/2021 9:34 AM CDT Rule Out COVID-19 07/25/2021 07/25/2021 07/25/2021 8:02 PM CDT Assessment Noted Time PHQ-9 Depression Total Score: 5 05/27/19 17 7:07 AM CDT documented as of this encounter Care Teams Turntable Worker Relationship Specialty Start Date End Date Shahida Sutton APRN TAX APPRAISER PCP - General Nurse Practitioner 08/17/14 08/04/21 Shahida Sutton, DUANE TAX APPRAISER PCP - Assigned PCP 07/12/14 05/07/18 Paula Reza MD [address] [place] [address] PCP - General Internal Medicine 08/05/21 Shahida Sutton, WILDLIFE POLICY PROFESSIONAL TAX APPRAISER Assigned PCP 07/12/14 09/30/21 Carolynn Ramon, KASIE Personal Advocate & Liaison (PAL) 12/17/18 08/07/21 [place] [address] [place] [address] Assigned Musculoskeletal Provider 12/26/19 08/21/20 Brady Lion MD Assigned Heart and Vascular Provider 12/26/19 08/14/20 Nima France PA-C [address] [place] [address] Assigned Surgical Provider 05/19/20 08/21/20 Camille Chandler PA-C [address] [place] [address] Assigned Neuroscience Provider 05/19/20 09/14/20 Anabela Barakat APRN TAX APPRAISER [address] [place] [address] Assigned Heart and Vascular Provider 08/15/20 08/05/21 Nima France PA-C [address] [place] [address] Assigned Musculoskeletal Provider 08/22/20 11/13/20 [place] [address] [facility] [place] [address] Assigned Musculoskeletal Provider 11/14/20 12/04/20 Fawad York MD [address] [place], [place] [address] Assigned Musculoskeletal Provider 12/05/20 02/05/21 Roopa Almonte MD [address] [facility] [address] [place], [place] [address] Endocrinology, Diabetes, and Metabolism 01/19/21 [place] [address] [facility] [address] [place] [address] Assigned Musculoskeletal Provider 02/06/21 09/16/21 Maryse Burton PA-C [address] [place] [address] Physician Grill Attendant Dermatology 04/14/21 Marquita Starkey MD [address] [facility] [address] [place], [place] [address] Internal Medicine 05/06/21 05/06/21 Roopa Almonte MD [address] [place] [address] Hospitalist Endocrinology, Diabetes, and Metabolism 05/30/21 Griffin Joshi MD [address] [facility] [address] [place] [address] Cardiovascular Disease 07/25/21 Rina Magallon, RN Lead Sales Administration Manager 07/29/21 07/11/22 Griffin Joshi MD [address] [place] [address] Assigned Heart and Vascular Provider 08/06/21 10/07/21 Roopa Almonte MD [address] [place] [address] 200 [place] [address] Assigned Endocrinology Provider 09/10/21 [place] [address] [facility] [place] [address] Assigned Musculoskeletal Provider 09/17/21 10/14/21 Lydia Bernstein PA-C [address] [place] [address] Assigned PCP 10/01/21 10/21/21 Rosa Maria Love CHW Community Health Worker 10/06/21 07/11/22 [place] [address] [facility] [address] [place] [address] Assigned Musculoskeletal Provider 10/15/21 04/26/23 Paula Reza MD [address] [facility] [address] [place], [place] [address] Assigned PCP 10/22/21 12/23/21 Keerthi Miner WILDLIFE POLICY PROFESSIONAL TAX APPRAISER [address] [place] [address] Assigned Heart and Vascular Provider 10/08/21 02/10/22 Shahida Sutton APRN TAX APPRAISER Assigned PCP 12/24/21 03/24/22 Porsha Michaels APRN TAX APPRAISER [address] [place] [address] Assigned Heart and Vascular Provider 02/11/22 05/12/22 Paula Reza MD [address] [facility] 200 [place] [address] Assigned PCP 03/25/22 04/07/22 Shahida Sutton WILDLIFE POLICY PROFESSIONAL TAX APPRAISER [address] [place] [address] Assigned PCP 04/08/22 06/30/22 Daylin Ludwig, MIKI [facility] [address] [place] [address] Cardiac Rehabilitation Therapist 05/16/23 Laurel Velasquez MD [address] [place] [address] Assigned Heart and Vascular Provider 05/13/22 06/30/22 Daylin Ludwig, MIKI [facility] [address] [place] [address] Cardiac Rehabilitation Therapist 06/08/22 06/09/23 Paula Reza MD [address] [place] [address] Assigned PCP 07/01/22 07/07/22 Porsha Michaels APRN TAX APPRAISER [address] [place] [address] Assigned Heart and Vascular Provider 07/01/22 07/07/22 Laurel Velasquez MD [address] [place] [address] Assigned Heart and Vascular Provider 07/08/22 08/04/22 Shahida Sutton APRN TAX APPRAISER Assigned PCP 07/08/22 09/08/22 Marilin Montaño TAX APPRAISER [address] [place] [address] Assigned Heart and Vascular Provider 08/05/22 Esha Dewitt MD [address] [place] [address] Gastroenterology 09/06/22 Heather Mosquera MD [address] [place] [address] Internal Medicine 09/06/22 Paula Reza MD [address] [place] [address] Assigned PCP 09/09/22 01/05/23 Esha Dewitt MD [address] [place] [address] Assigned Gastroenterology Provider 09/23/22 Valdo Escamilla PA-C [address] [facility] [address] [place] [address] Assigned Neuroscience Provider 09/30/22 Nohelia Abarca PA-C [address] [place] [address] Physician Grill Attendant Gastroenterology 10/03/22 Heather Mosquera MD [address]45 [facility] 150 [place] [address] Assigned PCP 01/06/23 Fawad York MD [address]09 [place] [address] Assigned Musculoskeletal Provider 04/27/23 06/25/23 documented as of this encounter
--- OUTSIDE RECORDS SUMMARY | 2023-09-21 08:36 | XMS_ITS | Encounter Summary ---
Author Organization [facility] Address [address] [place] [address] Care Team Providers Care Streetcar Motorman Name Role Phone Mingo Aldana MD Primary Car e Provider Herman, Shahida Cummings APRN MECHANICAL EXPERT Primary Care Provi ford Unavailable Herman, Shaihda Cummings APRN MECHANICAL EXPERT Unavailable Un available Herman, Shahida Cummings APRN MECHANICAL EXPERT Unavailable Un available Carolynn Ramon RN Unavailable [phone] Augustine Callaway MD Unavailable Brady Lion MD Unavailable Un available Nima France-C Unavailable [phone] Camille Chandler PA-C Unavailable [phone] Anabela Barakat APRN MECHANICAL EXPERT Unavailable Nima France-C Unavailable [phone] Basilio Morillo DO Unavailable [phone] Fawad York MD Unavailable [phone] Roopa Almonte MD Unavailable [phone] Augustine Callaway MD Unavailable Maryse Burton PA-C Unavailable Marquita Starkey MD Unavailable [phone] Roopa Almonte MD Unavailable [phone] Griffin Joshi MD Unavailable Rina Magallon RN Unavailable [phone] Paula Reza MD Primary Care Provider [phone] Griffin Joshi MD Unavailable Roopa Almonte MD Unavailable [phone] [facility] win DO Unavailable Lydia Bernstein PA-C Unavailable Rosa Maria Love Unavailable [phone] Augustine Callaway MD Unavailable Paula Reza MD Unavailable Keerthi Miner APRN MECHANICAL EXPERT Unavailable Herman, Shahida Cummings APRN MECHANICAL EXPERT Unavailable Un available Porsha Michaels APRN MECHANICAL EXPERT Unavailable [phone] Paula Reza MD Unavailable Herman, Shahida Cummings APRN MECHANICAL EXPERT Unavailable Un available Daylin Ludwig Unavailable [phone] Laurel Velasquez MD Unavailable [phone] Daylin Ludwig Unavailable [phone] Paula Reza MD Unavailable Porsha Michaels APRN MECHANICAL EXPERT Unavailable [phone] Laurel Velasquez MD Unavailable [phone] Herman, Shahida Cummings APRN MECHANICAL EXPERT Unavailable Un available Marilin Montaño MECHANICAL EXPERT Unavailable [phone] Esha Dewitt MD Unavailable [phone] Heather Mosquera MD Unavailable Paula Reza MD Unavailable Esha Dewitt MD Unavailable [phone] Valdo Escamilla PA-C Unavailable Nohelia Abarca PA-C Unavailable [phone] Heather Mosquera MD Unavailable Fawad York MD Unavailable [phone] Encounter Details Date Type Department Care Team (Late st Contact Info) Description 03/27/2013 [facility] [address] [address] Brenda Nicolas MA Social History [...] Out COVID-19 02/15/2020 02/15/2020 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 Rule Out COVID-19 01/05/2021 01/05/2021 01/06/2021 12:57 PM CDT ESBL 01/05/2021 01/05/2021 Rule Out COVID-19 06/30/2021 06/30/2021 07/01/2021 9:34 AM CDT Rule Out COVID-19 07/25/2021 07/25/2021 07/25/2021 8:02 PM CDT documented as of this encounter Care Teams Streetcar Motorman Relationship Specialty Start Date End Date Mingo Aldana MD PCP - General Family Practice 07/22/09 07/12/14 Shahida Sutton APRN MECHANICAL EXPERT PCP - General Nurse Practitioner 08/17/14 08/04/21 Shahida Sutton APRN MECHANICAL EXPERT PCP - Assigned PCP 07/12/14 05/07/18 Paula Reza MD [address] [facility] [address] [place] [address] PCP - General Internal Medicine 08/05/21 Shahida Sutton APRN MECHANICAL EXPERT Assigned PCP 07/12/14 09/30/21 Carolynn Ramon RN Personal Advocate & Liaison (PAL) 12/17/18 08/07/21 [place] [address] [address] [place], [place] [address] Assigned Musculoskeletal Provider 12/26/19 08/21/20 Brady Lion MD Assigned Heart and Vascular Provider 12/26/19 08/14/20 Nima France PA-C [address] [place] [address] Assigned Surgical Provider 05/19/20 08/21/20 Camille Chandler PA-C [address] [place] [address] Assigned Neuroscience Provider 05/19/20 09/14/20 Anabela Barakat APRN MECHANICAL EXPERT [address] [place] [address] Assigned Heart and Vascular Provider 08/15/20 08/05/21 Nima France PA-C [address] [facility] 450 [place] [address] Assigned Musculoskeletal Provider 08/22/20 11/13/20 [place] [address] [facility] [place] [place] [address] Assigned Musculoskeletal Provider 11/14/20 12/04/20 Fawad York MD [address] [place], [place] [address] Assigned Musculoskeletal Provider 12/05/20 02/05/21 Roopa Almonte MD [address] [facility] [address] [place] [address] Endocrinology, Diabetes, and Metabolism 01/19/21 [place] [address] [facility] [address] [place] [address] Assigned Musculoskeletal Provider 02/06/21 09/16/21 Maryse Burton PA-C [address] [place] [address] Physician Carpenter Dermatology 04/14/21 Marquita Starkey MD [address] [facility] 200 [place] [address] Internal Medicine 05/06/21 05/06/21 Roopa Almonte MD [address] [place] [address] Hospitalist Endocrinology, Diabetes, and Metabolism 05/30/21 Griffin Joshi MD [address] [facility] [address] [place] [address] Cardiovascular Disease 07/25/21 Rina Magallon, RN Lead Pull Socket Assembler 07/29/21 07/11/22 Griffin Joshi MD [address] [place] [address] Assigned Heart and Vascular Provider 08/06/21 10/07/21 Roopa Almonte MD [address] [facility] 200 [place] [address] Assigned Endocrinology Provider 09/10/21 [place] [address] [facility] [place] [address] Assigned Musculoskeletal Provider 09/17/21 10/14/21 Lydia Bernstein PA-C [address] [facility] [address] [place] [address] Assigned PCP 10/01/21 10/21/21 Rosa Maria Love CHW Community Health Worker 10/06/21 [place] [address] [address] [place] [address] Assigned Musculoskeletal Provider 10/15/21 04/26/23 Paula eRza MD [address] [place] [address] Assigned PCP 10/22/21 12/23/21 Keerthi Miner APRN MECHANICAL EXPERT [address] [place] [address] Assigned Heart and Vascular Provider 10/08/21 02/10/22 Shahida Sutton APRN MECHANICAL EXPERT Assigned PCP 12/24/21 03/24/22 Porsha Michaels APRN MECHANICAL EXPERT [address] [place] [address] Assigned Heart and Vascular Provider 02/11/22 05/12/22 Paula Reza MD [address] [place] [address] Assigned PCP 03/25/22 04/07/22 Shahida Sutton APRN MECHANICAL EXPERT [address] [place] [address] Assigned PCP 04/08/22 06/30/22 Daylin Ludwig, [facility] [address] [place] [address] Cardiac Rehabilitation Therapist 05/16/23 Laurel Velasquez MD [address] [place] [address] Assigned Heart and Vascular Provider 05/13/22 06/30/22 Daylin Ludwig, [facility] [address] [place], [place] [address] Cardiac Rehabilitation Therapist 06/08/22 06/09/23 Paula Reza MD [address] [place], [place] [address] Assigned PCP 07/01/22 07/07/22 Porsha Michaels APRN MECHANICAL EXPERT [address] [place] [address] Assigned Heart and Vascular Provider 07/01/22 07/07/22 Laurel Velasquez MD [address] [place] [address] Assigned Heart and Vascular Provider 07/08/22 08/04/22 Shahida Sutton, DUANE MECHANICAL EXPERT Assigned PCP 07/08/22 09/08/22 Marilin Montaño, MECHANICAL EXPERT [address] [place] [address] Assigned Heart and Vascular Provider 08/05/22 Esha Dewitt MD [address] [place] [address] 36 [place], [place] [address] Gastroenterology 09/06/22 Heather Mosquera MD [address] [place] [address] Internal Medicine 09/06/22 Paula Reza MD [address] [place] [address] Assigned PCP 09/09/22 01/05/23 Esha Dewitt MD [address] [facility] 36 [place], [place] [address] Assigned Gastroenterology Provider 09/23/22 Valdo Escamilla PA-C [address] [facility] 103 [place] [address] Assigned Neuroscience Provider 09/30/22 Nohelia Abarca PA-C [address] [place] [address] Physician Carpenter Gastroenterology 10/03/22 Heather Mosquera MD [address] [facility] [address] [address] [facility] 150 [place] [address] Assigned PCP 01/06/23 Fawad York MD [address] [place], [place] [address] Assigned Musculoskeletal Provider 04/27/23 06/25/23 documented as of this encounter
--- OUTSIDE RECORDS SUMMARY | 2023-09-21 08:36 | XMS_ITS | Encounter Summary ---
Author Organization [facility] Address [address] [place] [address] Care Team Providers Care Technology Officer Name Role Phone Mingo Aldana MD Primary Car e Provider Herman, Shahida Cummings APRN DIRECTOR ENTERPRISE DATA ARCHITECTURE Primary Care Provi ford Unavailable Herman, Shahida Cummings APRN DIRECTOR ENTERPRISE DATA ARCHITECTURE Unavailable Un available Herman, Shahida Cummings APRN DIRECTOR ENTERPRISE DATA ARCHITECTURE Unavailable Un available Carolynn Ramon RN Unavailable [phone] Augustine Callaway MD Unavailable Brady Lion MD Unavailable Un available Nima France-C Unavailable [phone] Camille Chandler PA-C Unavailable [phone] Anabela Barakat APRN DIRECTOR ENTERPRISE DATA ARCHITECTURE Unavailable Nima France-C Unavailable [phone] Basilio Morillo DO Unavailable Fawad York MD Unavailable [phone] Roopa Almonte MD Unavailable [phone] Augustine Callaway MD Unavailable Maryse Burton PA-C Unavailable Marquita Starkey MD Unavailable [phone] Roopa Almonte MD Unavailable [phone] Griffin Joshi MD Unavailable Rina Magallon RN Unavailable [phone] Paula Reza MD Primary Care Provider [phone] Griffin Joshi MD Unavailable Roopa Almonte MD Unavailable [phone] [facility] centerBasilio win DO Unavailable Lydia Bernstein PA-C Unavailable Rosa Maria Love Unavailable [phone] Augustine Callaway MD Unavailable Paula Reza MD Unavailable Keerthi Miner APRN DIRECTOR ENTERPRISE DATA ARCHITECTURE Unavailable Herman, Shahida Cummings APRN DIRECTOR ENTERPRISE DATA ARCHITECTURE Unavailable Un available Porsha Michaels APRN DIRECTOR ENTERPRISE DATA ARCHITECTURE Unavailable [phone] Paula Reza MD Unavailable Herman, Shahida Cummings APRN DIRECTOR ENTERPRISE DATA ARCHITECTURE Unavailable Un available Daylin Ludwig Unavailable [phone] Laurel Velasquez MD Unavailable [phone] Daylin Ludwig Unavailable [phone] Paula Reza MD Unavailable Porsha Michaels APRN DIRECTOR ENTERPRISE DATA ARCHITECTURE Unavailable [phone] Laurel Velasquez MD Unavailable [phone] Herman, Shahida Cummings APRN DIRECTOR ENTERPRISE DATA ARCHITECTURE Unavailable Un available Marilin Montaño DIRECTOR ENTERPRISE DATA ARCHITECTURE Unavailable [phone] Esha Dewitt MD Unavailable [phone] Heather Mosquera MD Unavailable [phone] Paula Reza MD Unavailable Esha Dewitt MD Unavailable [phone] Valdo Escamilla PA-C Unavailable Nohelia Abarca PA-C Unavailable [phone] Heather Mosquera MD Unavailable Fawad York MD Unavailable [phone] Encounter Details Date Type Department Care Team (Late st Contact Info) Description 03/27/2013 [facility] [address] [address] Brenda Nicolas MA Social History [...] Out COVID-19 02/15/2020 02/15/2020 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 Rule Out COVID-19 01/05/2021 01/05/2021 01/06/2021 12:57 PM CDT ESBL 01/05/2021 01/05/2021 Rule Out COVID-19 06/30/2021 06/30/2021 07/01/2021 9:34 AM CDT Rule Out COVID-19 07/25/2021 07/25/2021 07/25/2021 8:02 PM CDT documented as of this encounter Care Teams Technology Officer Relationship Specialty Start Date End Date Mingo Aldana MD PCP - General Family Practice 07/22/09 07/12/14 Shahida Sutton APRN DIRECTOR ENTERPRISE DATA ARCHITECTURE PCP - General Nurse Practitioner 08/17/14 08/04/21 Shahida Sutton APRN DIRECTOR ENTERPRISE DATA ARCHITECTURE PCP - Assigned PCP 07/12/14 05/07/18 Paula Reza MD [address] [facility] 200 [place] [address] PCP - General Internal Medicine 08/05/21 Shahida Sutton APRN DIRECTOR ENTERPRISE DATA ARCHITECTURE Assigned PCP 07/12/14 09/30/21 Carolynn Ramon RN Personal Advocate & Liaison (PAL) 12/17/18 08/07/21 [place] [address] [address] [place], [place] [address] Assigned Musculoskeletal Provider 12/26/19 08/21/20 Brady Lion MD Assigned Heart and Vascular Provider 12/26/19 08/14/20 Nima France PA-C [address] [place] [address] Assigned Surgical Provider 05/19/20 08/21/20 Camille Chandler PA-C [address] [place] [address] Assigned Neuroscience Provider 05/19/20 09/14/20 Anabela Barakat APRN DIRECTOR ENTERPRISE DATA ARCHITECTURE [address] [place] [address] Assigned Heart and Vascular Provider 08/15/20 08/05/21 Nima France PA-C [address] [facility] 450 [place] [address] Assigned Musculoskeletal Provider 08/22/20 11/13/20 [place] [address] [facility] [place], [place] [address] Assigned Musculoskeletal Provider 11/14/20 12/04/20 Fawad York MD [address] [place], [place] [address] Assigned Musculoskeletal Provider 12/05/20 02/05/21 Roopa Almonte MD [address] [facility] [address] [place] [address] Endocrinology, Diabetes, and Metabolism 01/19/21 [place] [address] [facility] [address] [place] [address] Assigned Musculoskeletal Provider 02/06/21 09/16/21 Maryse Burton PA-C [address] [place] [address] Physician Advice Clerk Dermatology 04/14/21 Marquita Starkey MD [address] [facility] 200 [place] [address] Internal Medicine 05/06/21 05/06/21 Roopa Almonte MD [address] [place] [address] Hospitalist Endocrinology, Diabetes, and Metabolism 05/30/21 Griffin Joshi MD [address] [facility] [address] [place] [address] Cardiovascular Disease 07/25/21 Rina Magallon, RN Lead Sales Consultant Residential Manager 07/29/21 07/11/22 Griffin Joshi MD [address] [place] [address] Assigned Heart and Vascular Provider 08/06/21 10/07/21 Roopa Almonte MD [address] [facility] 200 [place] [address] Assigned Endocrinology Provider 09/10/21 [place] [address] [facility] [place] [address] Assigned Musculoskeletal Provider 09/17/21 10/14/21 Lydia Bernstein PA-C [address] [facility] [address] [place] [address] Assigned PCP 10/01/21 10/21/21 Rosa Maria Love CHW Community Health Worker 10/06/21 [place] [address] [address] [place] [address] Assigned Musculoskeletal Provider 10/15/21 04/26/23 Paula Reza MD [address] [place] [address] Assigned PCP 10/22/21 12/23/21 Keerthi Miner APRN DIRECTOR ENTERPRISE DATA ARCHITECTURE [address] [place] [address] Assigned Heart and Vascular Provider 10/08/21 02/10/22 Shahida Sutton APRN DIRECTOR ENTERPRISE DATA ARCHITECTURE Assigned PCP 12/24/21 03/24/22 Porsha Michaels APRN DIRECTOR ENTERPRISE DATA ARCHITECTURE [address] [place] [address] Assigned Heart and Vascular Provider 02/11/22 05/12/22 Paula Reza MD [address] [place] [address] Assigned PCP 03/25/22 04/07/22 Shahida Sutton APRN DIRECTOR ENTERPRISE DATA ARCHITECTURE [address] [place] [address] Assigned PCP 04/08/22 06/30/22 Daylin Ludwig, [facility] [address] [place] [address] Cardiac Rehabilitation Therapist 05/16/23 Laurel Velasquez MD [address] [address] Assigned Heart and Vascular Provider 05/13/22 06/30/22 Daylin Ludwig, [facility] [address] [place], [place] [address] Cardiac Rehabilitation Therapist 06/08/22 06/09/23 Paula Reza MD [address] [place], [place] [address] Assigned PCP 07/01/22 07/07/22 Porsha Michaels APRN DIRECTOR ENTERPRISE DATA ARCHITECTURE [address] [place] [address] Assigned Heart and Vascular Provider 07/01/22 07/07/22 Laurel Velasquez MD [address] [place] [address] Assigned Heart and Vascular Provider 07/08/22 08/04/22 Shahida Sutton, DUANE DIRECTOR ENTERPRISE DATA ARCHITECTURE Assigned PCP 07/08/22 09/08/22 Marilin Montaño, DIRECTOR ENTERPRISE DATA ARCHITECTURE [address] [place] [address] Assigned Heart and Vascular Provider 08/05/22 Esha Dewitt MD [address] [place] [address] 36 [place], [place] [address] Gastroenterology 09/06/22 Heather Mosquera MD [address] [place] [address] Internal Medicine 09/06/22 Paula Reza MD [address] [place] [address] Assigned PCP 09/09/22 01/05/23 Esha Dewitt MD 420 [facility] 36 [place], [place] [address] Assigned Gastroenterology Provider 09/23/22 Valdo Escamilla PA-C [address] [facility] 103 [place] [address] Assigned Neuroscience Provider 09/30/22 Nohelia Abarca PA-C [address]50 [place] [address] Physician Advice Clerk Gastroenterology 10/03/22 Heather Mosquera MD [address] [facility] 150 [place] [address] Assigned PCP 01/06/23 Fawad York MD [address] [place], [place] [address] Assigned Musculoskeletal Provider 04/27/23 06/25/23 documented as of this encounter
--- OUTSIDE RECORDS SUMMARY | 2023-09-21 08:36 | XMS_ITS | Encounter Summary ---
Author Organization [facility] Address [address] [place] [address] Care Team Providers Care Physician Assistant Surgery Name Role Phone HermanShahida huerta APRN SKATES OPERATOR Primary Care Provi ford Unavailable Herman, Shahida Cummings APRN SKATES OPERATOR Unavailable Un available Herman, Shahida Cummings APRN SKATES OPERATOR Unavailable Un available Carolynn Ramon RN Unavailable [phone] Augustine Callaway MD Unavailable Brady Lion MD Unavailable Un available Nima France-C Unavailable [phone] Camille Chandler PA-C Unavailable [phone] Anabela Barakat APRN SKATES OPERATOR Unavailable Nima France PA-C Unavailable Basilio Morillo DO Unavailable Fawad York MD Unavailable [phone] Roopa Almonte MD Unavailable [phone] Augustine Callaway MD Unavailable Maryse Burton PA-C Unavailable [phone] Marquita Starkey MD Unavailable [phone] Roopa Almonte MD Unavailable [phone] Griffin Joshi MD Unavailable Rina Magallon RN Unavailable [phone] Paula Reza MD Primary Care Provider [phone] Griffin Joshi MD Unavailable Roopa Almonte MD Unavailable [phone] [facility] Basilio Naik Unavailable Lydia Bernstein PA-C Unavailable Rosa Maria Love Unavailable [phone] Augustine Callaway MD Unavailable Paula Reza MD Unavailable Keerthi Miner APRN SKATES OPERATOR Unavailable [phone] Herman, Shahida Cummings APRN SKATES OPERATOR Unavailable Un available Porsha Michaels APRN SKATES OPERATOR Unavailable [phone] Paula Reza MD Unavailable Herman, Shahida Cummings APRN SKATES OPERATOR Unavailable Un available Daylin Ludwig Unavailable [phone] Laurel Velasquez MD Unavailable [phone] Daylin Ludwig Unavailable [phone] Paula Reza MD Unavailable Porsha Michaels APRN SKATES OPERATOR Unavailable [phone] Laurel Velasquez MD Unavailable [phone] Herman, Shahida Cummings APRN SKATES OPERATOR Unavailable Un available Marilin Montaño SKATES OPERATOR Unavailable [phone] Esha Dewitt MD Unavailable [phone] Heather Mosquera MD Unavailable [phone] Paula Reza MD Unavailable Esha Dewitt MD Unavailable [phone] Valdo Escamilla PA-C Unavailable [phone] Nohelia Abarca PA-C Unavailable [phone] Heather Mosquera MD Unavailable Fawad York MD Unavailable [phone] Encounter Details Date Type Department Care Team (Late st Contact Info) Description 10/30/2014 [facility] Health & [facility] [place] [id number] [place] [address] [phone] Maximiliano Herrmann Social History Tobacco Use Types [...] Out COVID-19 02/15/2020 02/15/2020 02/16/2020 2:32 PM 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 Rule Out COVID-19 01/05/2021 01/05/2021 01/06/2021 12:57 PM CDT ESBL 01/05/2021 01/05/2021 Rule Out COVID-19 06/30/2021 06/30/2021 07/01/2021 9:34 AM CDT Rule Out COVID-19 07/25/2021 07/25/2021 07/25/2021 8:02 PM CDT documented as of this encounter Care Teams Physician Assistant Surgery Relationship Specialty Start Date End Date Shahida Sutton APRN SKATES OPERATOR PCP - General Nurse Practitioner 08/17/14 08/04/21 Shahida Sutton APRN SKATES OPERATOR PCP - Assigned PCP 07/12/14 05/07/18 Paula Reza MD [address] [place] [address] PCP - General Internal Medicine 08/05/21 Shahida Sutton APRN SKATES OPERATOR Assigned PCP 07/12/14 09/30/21 Carolynn Ramon, KASIE Personal Advocate & Liaison (PAL) 12/17/18 08/07/21 [place] [address] [place] [address] Assigned Musculoskeletal Provider 12/26/19 08/21/20 Brady Lion MD Assigned Heart and Vascular Provider 12/26/19 08/14/20 Nima France PA-C [address] [facility] [address] [place] [address] Assigned Surgical Provider 05/19/20 08/21/20 Camille Chandler PA-C [address] [facility] [address] [place] [address] Assigned Neuroscience Provider 05/19/20 09/14/20 Anabela Barakat APRN SKATES OPERATOR [address] [place] [address] Assigned Heart and Vascular Provider 08/15/20 08/05/21 Nima France PA-C [address] [place] [address] Assigned Musculoskeletal Provider 08/22/20 11/13/20 [place] [address] [facility] [place] [address] Assigned Musculoskeletal Provider 11/14/20 12/04/20 Fawad York MD [address] [place], [place] [address] Assigned Musculoskeletal Provider 12/05/20 02/05/21 Roopa Almonte MD [address] [facility] [address] [place] [address] Endocrinology, Diabetes, and Metabolism 01/19/21 [place] [address] [facility] [address] [place] [address] Assigned Musculoskeletal Provider 02/06/21 09/16/21 Maryse Burton PA-C [address] [place] [address] Physician Nuclear Reactor Operator Dermatology 04/14/21 Marquita Starkey MD [address] [place] [address] Internal Medicine 05/06/21 05/06/21 Roopa Almonte MD [address] [place] [address] Hospitalist Endocrinology, Diabetes, and Metabolism 05/30/21 Griffin Joshi MD [address] [facility] [address] [place] [address] Cardiovascular Disease 07/25/21 Rina Magallon, RN Lead Data Analysis Assistant 07/29/21 07/11/22 Griffin Joshi MD [address] [facility] [address] [place] [address] Assigned Heart and Vascular Provider 08/06/21 10/07/21 Roopa Almonte MD [address] [address] [place], [place] [address] Assigned Endocrinology Provider 09/10/21 [place] [address] [facility] [place] [address] Assigned Musculoskeletal Provider 09/17/21 10/14/21 Lydia Bernstein PA-C [address] [facility] [address] [place] [address] Assigned PCP 10/01/21 10/21/21 Rosa Maria Love CHW Community Health Worker 10/06/21 07/11/22 [place] [address] [facility] [address] [place] [address] Assigned Musculoskeletal Provider 10/15/21 04/26/23 Paula Reza MD [address] [facility] [address] [place] [address] Assigned PCP 10/22/21 12/23/21 Keerthi Miner CHEMISTRY INSTRUCTOR SKATES OPERATOR [address] [place] [address] Assigned Heart and Vascular Provider 10/08/21 02/10/22 Shahida Sutton APRN SKATES OPERATOR Assigned PCP 12/24/21 03/24/22 Porsha Michaels APRN SKATES OPERATOR [address] [place] [address] Assigned Heart and Vascular Provider 02/11/22 05/12/22 Paula Reza MD [address] [facility] [address] [place] [address] Assigned PCP 03/25/22 04/07/22 Shahida Sutton APRN SKATES OPERATOR [address] [place] [address] Assigned PCP 04/08/22 06/30/22 Daylin Ludwig EP [facility] [address] [place] [address] Cardiac Rehabilitation Therapist 05/16/23 Laurel Velasquez MD [address] [place] [address] Assigned Heart and Vascular Provider 05/13/22 06/30/22 Daylin Ludwig EP [facility] [address] [place] [address] Cardiac Rehabilitation Therapist 06/08/22 06/09/23 Paula Reza MD [address] [place] [address] Assigned PCP 07/01/22 07/07/22 Porsha Michaels APRN SKATES OPERATOR [address] [place] [address] Assigned Heart and Vascular Provider 07/01/22 07/07/22 Laurel Velasquez MD [address] [place] [address] Assigned Heart and Vascular Provider 07/08/22 08/04/22 Shahida Sutton APRN SKATES OPERATOR Assigned PCP 07/08/22 09/08/22 Marilin Montaño SKATES OPERATOR [address] [place] [address] Assigned Heart and Vascular Provider 08/05/22 Esha Dewitt MD [address] [place] [address] Gastroenterology 09/06/22 Heather Mosquera MD [address] [place] [address] Internal Medicine 09/06/22 Paula Reza MD [address] [place], [place] [address] Assigned PCP 09/09/22 01/05/23 Esha Dewitt MD [address] [place] [address] 233475 Assigned Gastroenterology Provider 09/23/22 Valdo Escamilla PA-C [address] [facility] [address] [place], [place] [address] Assigned Neuroscience Provider 09/30/22 Nohelia Abarca PA-C [address] [place], [place] [address] Physician Nuclear Reactor Operator Gastroenterology 10/03/22 Heather Mosquera MD [address] [facility] [address] [place], [place] [address] Assigned PCP 01/06/23 Fawad York MD [address] [place], [place] [address] Assigned Musculoskeletal Provider 04/27/23 06/25/23 documented as of this encounter
--- OUTSIDE RECORDS SUMMARY | 2023-09-21 08:36 | XMS_ITS | Encounter Summary ---
Author Organization [facility] Address [address] [place] [address] Care Team Providers Care Student Success Advisor Name Role Phone Mingo Aldana MD Primary Car e Provider Herman, Shahida Cummings APRN PROGRAM PROJECT ANALYST Primary Care Provi ford Unavailable Herman, Shahida Cummings APRN PROGRAM PROJECT ANALYST Unavailable Un available Herman, Shahida Cummings APRN PROGRAM PROJECT ANALYST Unavailable Un available Carolynn Ramon RN Unavailable [phone] Augustine Callaway MD Unavailable Brady Lion MD Unavailable Un available Nima France-C Unavailable [phone] Camille Chandler PA-C Unavailable [phone] Anabela Barakat APRN PROGRAM PROJECT ANALYST Unavailable Nima France-C Unavailable [phone] Basilio Morillo DO Unavailable Fawad York MD Unavailable [phone] Roopa Almonte MD Unavailable [phone] Augustine Callaway MD Unavailable Maryse Burton PA-C Unavailable Marquita Starkey MD Unavailable [phone] Roopa Almonte MD Unavailable [phone] Griffin Joshi MD Unavailable Rina Magallon RN Unavailable [phone] Paula Reza MD Primary Care Provider [phone] Griffin Joshi MD Unavailable Roopa Almonte MD Unavailable [phone] [facility] DO Unavailable Lydia Bernstein PA-C Unavailable Rosa Maria Love Unavailable [phone] Augustine Callaway MD Unavailable Paula Reza MD Unavailable Keerthi Miner APRN PROGRAM PROJECT ANALYST Unavailable Herman, Shahida Cummings APRN PROGRAM PROJECT ANALYST Unavailable Un available Porsha Michaels APRN PROGRAM PROJECT ANALYST Unavailable [phone] Paula Reza MD Unavailable Herman, Shahida Cummings APRN PROGRAM PROJECT ANALYST Unavailable Un available Daylin Ludwig Unavailable [phone] Laurel Velasquez MD Unavailable [phone] Daylin Ludwig Unavailable [phone] Paula Reza MD Unavailable Porsha Michaels APRN PROGRAM PROJECT ANALYST Unavailable [phone] Laurel Velasquez MD Unavailable [phone] Herman, Shahida Cummings APRN PROGRAM PROJECT ANALYST Unavailable Un available Marilin Montaño PROGRAM PROJECT ANALYST Unavailable [phone] Esha Dewitt MD Unavailable [phone] Heather Mosquera MD Unavailable Paula Reza MD Unavailable Esha Dewitt MD Unavailable [phone] Valdo Escamilla Deo PA-C Unavailable [phone] Nohelia Abarca PA-C Unavailable [phone] Heather Mosquera MD Unavailable [phone] Fawad York MD Unavailable [phone] Reason for Visit * Reason Onset Date Comments Refill Request 01/05/2014 norco Encounter Details Date Type Department Care Team (Late st Contact Info) Description 01/05/[address] [id number] Mingo Aldana MD [facility] [address] [place] [address] Refill Request (everbillco) Social History Tobacco Use Types Packs/Day Years [...] PM CST Patient informed to pick-up via [facility]. FINISHER * Telephone Encounter - Shayla Callahan RN - 01/05/2014 12:52 PM CSTMessage from [place] [facility]: Original authorizing provider: Mingo Aldana MD, MD Mauro Terrell would like a refill of the following medications: HYDROcodone-acetaminophen (NORCO) 10-325 MG per tablet [Mingo Aldana MD, MD] Preferred pharmacy: [id number] [address] R[address] Comment: FINISHER documented in this encounter Plan of Treatment Not on file documented as of this encounter Visit Diagnoses Diagnosis Cervicalgia Radicular pain in right arm Neuralgia, neuritis, and radiculitis, unspecified documented in this encounter Additional Health Concerns Infection Onset Date Last Indicated Resolved Time Rule Out COVID-19 02/15/2020 02/15/2020 02/16/2020 2:32 PM TIP FINISHER Rule Out COVID-19 01/05/2021 01/05/2021 01/06/2021 12:57 PM CDT ESBL 01/05/2021 01/05/2021 Rule Out COVID-19 06/30/2021 06/30/2021 07/01/2021 9:34 AM CDT Rule Out COVID-19 07/25/2021 07/25/2021 07/25/2021 8:02 PM CDT documented as of this encounter Care Teams Student Success Advisor Relationship Specialty Start Date End Date Mingo Aldana MD PCP - General Family Practice 07/22/09 07/12/14 Shahida Sutton APRN PROGRAM PROJECT ANALYST PCP - General Nurse Practitioner 08/17/14 08/04/21 Shahida Sutton APRN PROGRAM PROJECT ANALYST PCP - Assigned PCP 07/12/14 05/07/18 Paula Reza MD [address] [address] PCP - General Internal Medicine 08/05/21 Shahida Sutton APRN CNP Assigned PCP 07/12/14 09/30/21 Carolynn Ramon, KASIE Personal Advocate & Liaison (PAL) 12/17/18 08/07/21 [place] [address] [place] [address] Assigned Musculoskeletal Provider 12/26/19 08/21/20 Brady Lion MD Assigned Heart and Vascular Provider 12/26/19 08/14/20 Nima France PA-C [address] [place] [address] Assigned Surgical Provider 05/19/20 08/21/20 Camille Chandler PA-C [address] [place] [address] Assigned Neuroscience Provider 05/19/20 09/14/20 Anabela Barakat APRN PROGRAM PROJECT ANALYST [address] [place] [address] Assigned Heart and Vascular Provider 08/15/20 08/05/21 Nima France PA-C [address] [place], [place] [address] Assigned Musculoskeletal Provider 08/22/20 11/13/20 [place] [address] [facility] [place] [address] Assigned Musculoskeletal Provider 11/14/20 12/04/20 Fawad York MD [address] [place], [place] [address] Assigned Musculoskeletal Provider 12/05/20 02/05/21 Roopa Almonte MD [address] [facility] 200 [place] [address] Endocrinology, Diabetes, and Metabolism 01/19/21 [place] [address] [facility] 300 [place] [address] Assigned Musculoskeletal Provider 02/06/21 09/16/21 Maryse Burton PA-C [address] [place] [address] Physician Equity Manager Dermatology 04/14/21 Marquita Starkey MD [address] [facility] 200 [place] [address] Internal Medicine 05/06/21 05/06/21 Roopa Almonte MD [address] [facility] 200 [place] [address] Hospitalist Endocrinology, Diabetes, and Metabolism 05/30/21 Griffin Joshi MD [address] [place] [address] Cardiovascular Disease 07/25/21 Rina Magallon, RN Lead Architectural Sales Consultant 07/29/21 07/11/22 Griffin Joshi MD [address] [place] [address] Assigned Heart and Vascular Provider 08/06/21 10/07/21 Roopa Almonte MD [address] [address] [place] [address] Assigned Endocrinology Provider 09/10/21 [place] [address] [place] [address] Assigned Musculoskeletal Provider 09/17/21 10/14/21 Lydia Bernstein PA-C [address] [place] [address] Assigned PCP 10/01/21 10/21/21 Rosa Maria Love Cristina Community Health Worker 10/06/21 [place] [address] [facility] [address] [place] [address] Assigned Musculoskeletal Provider 10/15/21 04/26/23 Paula Reza MD [address] [facility] 200 [place] [address] Assigned PCP 10/22/21 12/23/21 Keerthi Miner APRN PROGRAM PROJECT ANALYST [address] [place] [address] Assigned Heart and Vascular Provider 10/08/21 02/10/22 Shahida Sutton APRN PROGRAM PROJECT ANALYST Assigned PCP 12/24/21 03/24/22 Porsha Michaels APRN PROGRAM PROJECT ANALYST [address] [place] [address] Assigned Heart and Vascular Provider 02/11/22 05/12/22 Paula Reza MD [address] [place] [address] Assigned PCP 03/25/22 04/07/22 Shahida Sutton APRN PROGRAM PROJECT ANALYST [address] [place] [address] Assigned PCP 04/08/22 06/30/22 Daylin Ludwig, EP [facility] [address] [place] [address] Cardiac Rehabilitation Therapist 05/16/23 Laurel Velasquez MD [address] [place] [address] Assigned Heart and Vascular Provider 05/13/22 06/30/22 Daylin Ludwig, [facility] [address] [place] [address] Cardiac Rehabilitation Therapist 06/08/22 06/09/23 Paula Reza MD [address] [place] [address] Assigned PCP 07/01/22 07/07/22 Porsha Michaels APRN PROGRAM PROJECT ANALYST [address] [place] [address] Assigned Heart and Vascular Provider 07/01/22 07/07/22 Laurel Velasquez MD [address] [place], [place] [address] Assigned Heart and Vascular Provider 07/08/22 08/04/22 Shahida Sutton, GRAPHITE DISK ASSEMBLER PROGRAM PROJECT ANALYST Assigned PCP 07/08/22 09/08/22 Marilin Montaño, PROGRAM PROJECT ANALYST [address] [place] [address] Assigned Heart and Vascular Provider 08/05/22 Esha Dewitt MD [address] [address] Gastroenterology 09/06/22 Heather Mosquera MD [address] [place] [address] Internal Medicine 09/06/22 Paula Reza MD [address] [facility] 200 [place] [address] Assigned PCP 09/09/22 01/05/23 Esha Dewitt MD [address] [address] Assigned Gastroenterology Provider 09/23/22 Valdo Escamilla PA-C [address] [place] [address] Assigned Neuroscience Provider 09/30/22 Nohelia Abarca PA-C [address] [place] [address] Physician Equity Manager Gastroenterology 10/03/22 Heather Mosquera MD [address] [address] Assigned PCP 01/06/23 Fawad York MD [address] [place], [place] [address] Assigned Musculoskeletal Provider 04/27/23 06/25/23 documented as of this encounter
--- OUTSIDE RECORDS SUMMARY | 2023-09-21 08:36 | XMS_ITS | Encounter Summary ---
Author Organization [facility] Address [address] [place] [address] Care Team Providers Care Machine Finisher Name Role Phone HermanShahida huerta APRN CONVENIENCE RECYCLE CENTER TECH Primary Care Provi ford Unavailable Herman, Shahida Cummings APRN CONVENIENCE RECYCLE CENTER TECH Unavailable Un available Herman, Shahida Cummings APRN CONVENIENCE RECYCLE CENTER TECH Unavailable Un available Carolynn Ramon RN Unavailable [phone] Augustine Callaway MD Unavailable Brady Lion MD Unavailable Un available Nima France-C Unavailable [phone] Camille Chandler PA-C Unavailable [phone] Anabela Barakat APRN CONVENIENCE RECYCLE CENTER TECH Unavailable Nima France PA-C Unavailable Basilio Morillo DO Unavailable [phone] Fawad York MD Unavailable [phone] Roopa Almonte MD Unavailable [phone] Augustine Callaway MD Unavailable Maryse Burton PA-C Unavailable [phone] Marquita Starkey MD Unavailable Roopa Almonte MD Unavailable [phone] Griffin Joshi MD Unavailable Rina Magallon RN Unavailable [phone] Paula Reza MD Primary Care Provider [phone] Griffin Joshi MD Unavailable Roopa Almonte MD Unavailable [phone] [facility] Basilio Naik Unavailable Lydia Bernstein PA-C Unavailable Rosa Maria Love Unavailable [phone] Augustine Callaway MD Unavailable Paula Reza MD Unavailable Keerthi Miner APRN CONVENIENCE RECYCLE CENTER TECH Unavailable [phone] Herman, Shahida Cummings APRN CONVENIENCE RECYCLE CENTER TECH Unavailable Un available Porsha Michaels APRN CONVENIENCE RECYCLE CENTER TECH Unavailable [phone] Paula Reza MD Unavailable Herman, Shahida Cummings APRN CONVENIENCE RECYCLE CENTER TECH Unavailable Un available Daylin Ludiwg Unavailable [phone] Laurel Velasquez MD Unavailable [phone] Daylin Ludwig Unavailable [phone] Paula Reza MD Unavailable Porsha Michaels APRN CONVENIENCE RECYCLE CENTER TECH Unavailable [phone] Laurel Velasquez MD Unavailable [phone] Herman, Shahida Cummings APRN CONVENIENCE RECYCLE CENTER TECH Unavailable Un available Marilin Montaño CONVENIENCE RECYCLE CENTER TECH Unavailable [phone] Esha Dewitt MD Unavailable [phone] Heather Mosquera MD Unavailable [phone] Paula Reza MD Unavailable Esha Dewitt MD Unavailable [phone] Valdo Escamilla PA-C Unavailable Nohelia Abarca PA-C Unavailable [phone] Heather Mosquera MD Unavailable Fawad York MD Unavailable [phone] Encounter Details Date Type Department Care Team (Late st Contact Info) Description 12/28/2015 MyC Medical Advice [address] [address] Matilde Allen CMA Social History [...] Out COVID-19 02/15/2020 02/15/2020 02/16/2020 2:32 PM FINAL CLEANER Rule Out COVID-19 01/05/2021 01/05/2021 01/06/2021 12:57 PM CDT ESBL 01/05/2021 01/05/2021 Rule Out COVID-19 06/30/2021 06/30/2021 07/01/2021 9:34 AM CDT Rule Out COVID-19 07/25/2021 07/25/2021 07/25/2021 8:02 PM CDT Assessment Noted Time PHQ-9 Depression Total Score: 7 11/17/19 16 7:18 AM CDT documented as of this encounter Care Teams Machine Finisher Relationship Specialty Start Date End Date Shahida Sutton APRN CONVENIENCE RECYCLE CENTER TECH PCP - General Nurse Practitioner 08/17/14 08/04/21 Shahida Sutton, DUANE CONVENIENCE RECYCLE CENTER TECH PCP - Assigned PCP 07/12/14 05/07/18 Paula Reza MD [address] [place] [address] PCP - General Internal Medicine 08/05/21 Shahida Sutton, OCEANOGRAPHER PHYSICAL CONVENIENCE RECYCLE CENTER TECH Assigned PCP 07/12/14 09/30/21 Carolynn Ramon, KASIE Personal Advocate & Liaison (PAL) 12/17/18 08/07/21 [place] [address] [address] [place] [address] Assigned Musculoskeletal Provider 12/26/19 08/21/20 Brady Lion MD Assigned Heart and Vascular Provider 12/26/19 08/14/20 Nima France PA-C [address] [place] [address] Assigned Surgical Provider 05/19/20 08/21/20 Camille Chandler PA-C [address] [place] [address] Assigned Neuroscience Provider 05/19/20 09/14/20 Anabela Baarkat APRN CONVENIENCE RECYCLE CENTER TECH [address] [place] [address] Assigned Heart and Vascular Provider 08/15/20 08/05/21 Nima France PA-C [address] [place] [address] Assigned Musculoskeletal Provider 08/22/20 11/13/20 [place] [address] [facility] [place] [address] Assigned Musculoskeletal Provider 11/14/20 12/04/20 Fawad York MD [address] [place], [place] [address] Assigned Musculoskeletal Provider 12/05/20 02/05/21 Roopa Almonte MD [address] [facility] [address] [place], [place] [address] Endocrinology, Diabetes, and Metabolism 01/19/21 [place] [address] [facility] [address] [place] [address] Assigned Musculoskeletal Provider 02/06/21 09/16/21 Maryse Burton PA-C [address] [place] [address] Physician Tripe Finisher Dermatology 04/14/21 Marquita Starkey MD [address] [facility] [address] [place], [place] [address] Internal Medicine 05/06/21 05/06/21 Roopa Almonte MD [address] [place] [address] Hospitalist Endocrinology, Diabetes, and Metabolism 05/30/21 Griffin Joshi MD [address] [facility] [address] [place] [address] Cardiovascular Disease 07/25/21 Rina Magallon, RN Lead Staff Air Tactical Officer 07/29/21 07/11/22 Griffin Joshi MD [address] [place] [address] Assigned Heart and Vascular Provider 08/06/21 10/07/21 Roopa Almonte MD [address] [place] [address] 200 [place] [address] Assigned Endocrinology Provider 09/10/21 [place] [address] [facility] [place] [address] Assigned Musculoskeletal Provider 09/17/21 10/14/21 Lydia Bernstein PA-C [address] [place] [address] Assigned PCP 10/01/21 10/21/21 Rosa Maria Love CHW Community Health Worker 10/06/21 07/11/22 [place] [address] [facility] [address] [place] [address] Assigned Musculoskeletal Provider 10/15/21 04/26/23 Paula Reza MD [address] [facility] [address] [place], [place] [address] Assigned PCP 10/22/21 12/23/21 Keerthi Miner OCEANOGRAPHER PHYSICAL CONVENIENCE RECYCLE CENTER TECH [address] [place] [id number] Assigned Heart and Vascular Provider 10/08/21 02/10/22 Shahida Sutton APRN CONVENIENCE RECYCLE CENTER TECH Assigned PCP 12/24/21 03/24/22 Porsha Michaels APRN CONVENIENCE RECYCLE CENTER TECH [address] [place] [address] Assigned Heart and Vascular Provider 02/11/22 05/12/22 Paula Reza MD [address] [facility] 200 [place] [address] Assigned PCP 03/25/22 04/07/22 Shahida Sutton OCEANOGRAPHER PHYSICAL CONVENIENCE RECYCLE CENTER TECH [address] [place] [address] Assigned PCP 04/08/22 06/30/22 Daylin Ludwig, [facility] [address] [place] [address] Cardiac Rehabilitation Therapist 05/16/23 Laurel Velasquez MD [address] [place] [address] Assigned Heart and Vascular Provider 05/13/22 06/30/22 Daylin Ludwig, [facility] [address] [place] [address] Cardiac Rehabilitation Therapist 06/08/22 06/09/23 Paula Reza MD [address] [place] [address] Assigned PCP 07/01/22 07/07/22 Porsha Michaels APRN CONVENIENCE RECYCLE CENTER TECH [address] [place] [address] Assigned Heart and Vascular Provider 07/01/22 07/07/22 Laurel Velasquez MD [address] [place] [address] Assigned Heart and Vascular Provider 07/08/22 08/04/22 Shahida Sutton APRN CONVENIENCE RECYCLE CENTER TECH Assigned PCP 07/08/22 09/08/22 Marilin Montaño CONVENIENCE RECYCLE CENTER TECH [address] [place] [address] Assigned Heart and Vascular Provider 08/05/22 Esha Dewitt MD [address] [place] [address] Gastroenterology 09/06/22 Heather Mosquera MD [address] [place] [address] Internal Medicine 09/06/22 Paula Reza MD [address] [place] [address] Assigned PCP 09/09/22 01/05/23 Esha Dewitt MD [address] [place] [address] Assigned Gastroenterology Provider 09/23/22 Valdo Escamilla PA-C [address] [facility] [address] [place] [address] Assigned Neuroscience Provider 09/30/22 Nohelia Abarca PA-C [address] [place] [address] Physician Tripe Finisher Gastroenterology 10/03/22 Heather Mosquera MD [address] [facility] [address] [place] [address] Assigned PCP 01/06/23 Fawad York MD [address] [place] [address] Assigned Musculoskeletal Provider 04/27/23 06/25/23 documented as of this encounter
--- OUTSIDE RECORDS SUMMARY | 2023-09-21 08:36 | XMS_ITS | Encounter Summary ---
Author Organization [facility] Address [address] [place] [address] Care Team Providers Care Shank Archer Name Role Phone Mingo Aldana MD Primary Car e Provider Herman, Shahida Cummings APRN TECHNICAL SALES REPRESENTATIVE Primary Care Provi ford Unavailable Herman, Shahida Cummings APRN TECHNICAL SALES REPRESENTATIVE Unavailable Un available Herman, Shahida Cummings APRN TECHNICAL SALES REPRESENTATIVE Unavailable Un available Carolynn Ramon RN Unavailable [phone] Augustine Callaway MD Unavailable Brady Lion MD Unavailable Un available Nima France-C Unavailable [phone] Camille Chandler PA-C Unavailable [phone] Anabela Barakat APRN TECHNICAL SALES REPRESENTATIVE Unavailable Nima France-C Unavailable [phone] Basilio Morillo DO Unavailable Fawad York MD Unavailable [phone] Roopa Almonte MD Unavailable [phone] Augustine Callaway MD Unavailable Maryse Burton PA-C Unavailable Marquita Starkey MD Unavailable [phone] Roopa Almonte MD Unavailable [phone] Griffin Joshi MD Unavailable Rina Magallon RN Unavailable [phone] Paula Reza MD Primary Care Provider [phone] Griffin Joshi MD Unavailable Roopa Almonte MD Unavailable [phone] [facility] hospital[facility] win DO Unavailable Lydia Bernstein PA-C Unavailable Rosa Maria Love Unavailable [phone] Augustine Callaway MD Unavailable Paula Reza MD Unavailable Keerthi Miner APRN TECHNICAL SALES REPRESENTATIVE Unavailable Herman, Shahida Cummings APRN TECHNICAL SALES REPRESENTATIVE Unavailable Un available Porsha Michaels APRN TECHNICAL SALES REPRESENTATIVE Unavailable [phone] Paula Reza MD Unavailable Herman, Shahida Cummings APRN TECHNICAL SALES REPRESENTATIVE Unavailable Un available Daylin Ludwig Unavailable [phone] Laurel Velasquez MD Unavailable [phone] Daylin Ludwig Unavailable [phone] Paula Reza MD Unavailable Porsha Michaels APRN TECHNICAL SALES REPRESENTATIVE Unavailable [phone] Laurel Velasquez MD Unavailable [phone] Herman, Shahida Cummings APRN TECHNICAL SALES REPRESENTATIVE Unavailable Un available Marilin Montaño TECHNICAL SALES REPRESENTATIVE Unavailable [phone] Esha Dewitt MD Unavailable [phone] Heather Mosquera MD Unavailable Paula Reza MD Unavailable Esha Dewitt MD Unavailable [phone] AyseStanford cabrerashiv Desouza PA-C Unavailable Nohelia Abarca PA-C Unavailable Heather Mosquera MD Unavailable [phone] Fawad York MD Unavailable [phone] Reason for Visit * Reason Onset Date Comments Outreach 04/26/2013 PHS Encounter Details Date Type Department Care Team (Late st Contact Info) Description 04/26/[address] [address] Mingo Aldana MD [facility] [address] [place] [address] Outreach (PHS) Social History Tobacco [...] Attempt 2 Message on voicemail Comments: Outreach Rn Dermatology MRL ESTATE TRANSACTION COORDINATOR * Telephone Encounter - Sadiq Sol - 04/26/2013 5:12 PM CST 04/26/2013 Call Regarding Preventive Health Screening Colonoscopy Attempt 1 Message on voicemail Comments: Outreach Rn Dermatology rbg ESTATE TRANSACTION COORDINATOR documented in this encounter Plan of Treatment Not on file documented as of this encounter Visit Diagnoses Not on filedocumented in this encounter Additional Health Concerns Infection Onset Date Last Indicated Resolved Time Rule Out COVID-19 02/15/2020 02/15/2020 02/16/2020 2:32 PM REAL ESTATE TRANSACTION COORDINATOR Rule Out COVID-19 01/05/2021 01/05/2021 01/06/2021 12:57 PM CDT ESBL 01/05/2021 01/05/2021 Rule Out COVID-19 06/30/2021 06/30/2021 07/01/2021 9:34 AM CDT Rule Out COVID-19 07/25/2021 07/25/2021 07/25/2021 8:02 PM CDT documented as of this encounter Care Teams Shank Archer Relationship Specialty Start Date End Date Mingo Aldana MD PCP - General Family Practice 07/22/09 07/12/14 Shahida Sutton APRN TECHNICAL SALES REPRESENTATIVE PCP - General Nurse Practitioner 08/17/14 08/04/21 Shahida Sutton APRN TECHNICAL SALES REPRESENTATIVE PCP - Assigned PCP 07/12/14 05/07/18 Paula Reza MD [address] [facility] [address] [place], [place] [address] PCP - General Internal Medicine 08/05/21 Shahida Sutton APRN TECHNICAL SALES REPRESENTATIVE Assigned PCP 07/12/14 09/30/21 Carolynn Ramon, KASIE Personal Advocate & Liaison (PAL) 12/17/18 08/07/21 [place] [address] [place] [address] Assigned Musculoskeletal Provider 12/26/19 08/21/20 Brady Lion MD Assigned Heart and Vascular Provider 12/26/19 08/14/20 Nima France PA-C [address] [facility] [address] [place] [address] Assigned Surgical Provider 05/19/20 08/21/20 Camille Chandler PA-C [address] [facility] [address] [place] [address] Assigned Neuroscience Provider 05/19/20 09/14/20 Anabela Barakat APRN TECHNICAL SALES REPRESENTATIVE [address] [place] [address] Assigned Heart and Vascular Provider 08/15/20 08/05/21 Nima France PA-C [address] [facility] [address] [place] [address] Assigned Musculoskeletal Provider 08/22/20 11/13/20 [place] [address] [facility], [facility] [place] [address] Assigned Musculoskeletal Provider 11/14/20 12/04/20 Fawad York MD 9 [place] [address] Assigned Musculoskeletal Provider 12/05/20 02/05/21 Roopa Almonte MD [address] [facility] 200 [place] [address] Endocrinology, Diabetes, and Metabolism 01/19/21 [place] [address] [facility] 300 [place] [address] Assigned Musculoskeletal Provider 02/06/21 09/16/21 Maryse Burton PA-C [address] [place] [address] Physician Sports Statistician Dermatology 04/14/21 Marquita Starkey MD [address] [facility] 200 [place] [address] Internal Medicine 05/06/21 05/06/21 Roopa Almonte MD [address] [facility] 200 [place] [address] Hospitalist Endocrinology, Diabetes, and Metabolism 05/30/21 Griffin Joshi MD [address] [facility]00 [place] [address] Cardiovascular Disease 07/25/21 Rina Magallon, RN Lead Golf Sales Manager 07/29/21 07/11/22 Griffin Joshi MD [address] [facility]00 [place] [address] Assigned Heart and Vascular Provider 08/06/21 10/07/21 Roopa Almonte MD [address] [facility] 200 [place], [place] [address] Assigned Endocrinology Provider 09/10/21 [place] [address] [facility] [place] [address] Assigned Musculoskeletal Provider 09/17/21 10/14/21 Lydia Bernstein, HUYC [address] [place] [address] Assigned PCP 10/01/21 10/21/21 Rosa Maria Love CHW Community Health Worker 10/06/21 [place] [address] [place] [address] Assigned Musculoskeletal Provider 10/15/21 04/26/23 Paula Reza MD [address] [place] [address] Assigned PCP 10/22/21 12/23/21 Keerthi Miner APRN TECHNICAL SALES REPRESENTATIVE [address] [place] [address] Assigned Heart and Vascular Provider 10/08/21 02/10/22 Shahida Sutton, DRUG ABUSE TREATMENT SPECIALIST TECHNICAL SALES REPRESENTATIVE Assigned PCP 12/24/21 03/24/22 Porsha Michaels APRN TECHNICAL SALES REPRESENTATIVE [address] [place] [address] Assigned Heart and Vascular Provider 02/11/22 05/12/22 Paula Reza MD [address] [place] [address] Assigned PCP 03/25/22 04/07/22 Shahida Sutton APRN TECHNICAL SALES REPRESENTATIVE [address] [place] [address] Assigned PCP 04/08/22 06/30/22 Daylin Ludwig, [facility] [address] [place] [address] Cardiac Rehabilitation Therapist 05/16/23 Laurel Velasquez MD [address] [place] [address] Assigned Heart and Vascular Provider 05/13/22 06/30/22 Daylin Ludwig, [facility] [address] [place] [address] Cardiac Rehabilitation Therapist 06/08/22 06/09/23 Paula Reza MD [address] [address] Assigned PCP 07/01/22 07/07/22 Porsha Michaels APRN TECHNICAL SALES REPRESENTATIVE [address] [place] [address] Assigned Heart and Vascular Provider 07/01/22 07/07/22 Laurel Velasquez MD [address] [place] [address] Assigned Heart and Vascular Provider 07/08/22 08/04/22 Shahida Sutton APRN TECHNICAL SALES REPRESENTATIVE Assigned PCP 07/08/22 09/08/22 Marilin Montaño, TECHNICAL SALES REPRESENTATIVE [address] [place] [address] Assigned Heart and Vascular Provider 08/05/22 Esha Dewitt MD [address] [facility] 36 [place] [address] MD Gastroenterology 09/06/22 Heather Mosquera MD [address] [place] [address] Internal Medicine 09/06/22 Paula Reza MD [address] [facility] [address] [place], [place] [address] Assigned PCP 09/09/22 01/05/23 Esha Dewitt MD [address] [facility] [address] [place], [place] [address] Assigned Gastroenterology Provider 09/23/22 Valdo Escamilla PA-C [address] [facility] [address] [address] [place] [id number] Assigned Neuroscience Provider 09/30/22 Nohelia Abarca PA-C [address] [facility] [place], [place] [address] Physician Sports Statistician Gastroenterology 10/03/22 Heather Mosquera MD [address] [place] [address] Assigned PCP 01/06/23 Fawad York MD 9 [place] [address] Assigned Musculoskeletal Provider 04/27/23 06/25/23 documented as of this encounter
--- OUTSIDE RECORDS SUMMARY | 2023-09-21 08:36 | XMS_ITS | Encounter Summary ---
Author Organization [facility] Address [address] [place] [address] Care Team Providers Care Group Reservations Coordinator Name Role Phone Mingo Aldana MD Primary Car e Provider Herman, Shahida Cummings APRN DICE DEALER Primary Care Provi ford Unavailable Herman, Shahida Cummings APRN DICE DEALER Unavailable Un available Herman, Shahida Cummings APRN DICE DEALER Unavailable Un available Carolynn Ramon RN Unavailable [phone] Augustine Callaway MD Unavailable Brady Lion MD Unavailable Un available Nima France-C Unavailable [phone] Camille Chandler PA-C Unavailable [phone] Anabela Barakat APRN DICE DEALER Unavailable Nima France-C Unavailable [phone] Basilio Morillo DO Unavailable [phone] Fawad York MD Unavailable [phone] Roopa Almonte MD Unavailable [phone] Augustine Callaway MD Unavailable Maryse Burton PA-C Unavailable Marquita Starkey MD Unavailable [phone] Roopa Almonte MD Unavailable [phone] Griffin Joshi MD Unavailable Rina Magallon RN Unavailable [phone] Paula Reza MD Primary Care Provider [phone] Griffin Joshi MD Unavailable Roopa Almonte MD Unavailable [phone] [facility] DO Unavailable Lydia Bernstein PA-C Unavailable Rosa Maria Love Unavailable [phone] Augustine Callaway MD Unavailable Paula Reza MD Unavailable Keerthi Miner APRN DICE DEALER Unavailable Herman, Shahida Cummings APRN DICE DEALER Unavailable Un available Porsha Michaels APRN DICE DEALER Unavailable [phone] Paula Reza MD Unavailable Herman, Shahida Cummings APRN DICE DEALER Unavailable Un available Daylin Ludwig Unavailable [phone] Laurel Velasquez MD Unavailable [phone] Daylin Ludwig Unavailable [phone] Paula Reza MD Unavailable Porsha Michaels APRN DICE DEALER Unavailable [phone] Laurel Velasquez MD Unavailable [phone] Herman, Shahida Cummings APRN DICE DEALER Unavailable Un available Marilin Montaño DICE DEALER Unavailable [phone] Esha Dewitt MD Unavailable [phone] Heather Mosquera MD Unavailable Paula Reza MD Unavailable Esha Dewitt MD Unavailable [phone] Valdo Escamilla Deo PA-C Unavailable Nohelia Abarca PA-C Unavailable [phone] Heather Mosquera MD Unavailable [phone] Fawad York MD Unavailable [phone] Reason for Visit * Reason Onset Date Comments Refill Request 02/09/2014 ambien Encounter Details Date Type Department Care Team (Late st Contact Info) Description 02/09/[address] [address] Mingo Aldana MD [facility] [address] [place] [address] Refill Request (ambien) Social History [...] MD] Preferred pharmacy: [id number] - [facility] [id number] [facility] Comment: SURGEON HELPER documented in this encounter Plan of Treatment Not on file documented as of this encounter Visit Diagnoses Diagnosis Moderate major depression (H) Major depressive disorder, single episode, moderate documented in this encounter Additional Health Concerns Infection Onset Date Last Indicated Resolved Time Rule Out COVID-19 02/15/2020 02/15/2020 02/16/2020 2:32 PM TREE SURGEON HELPER Rule Out COVID-19 01/05/2021 01/05/2021 01/06/2021 12:57 PM CDT ESBL 01/05/2021 01/05/2021 Rule Out COVID-19 06/30/2021 06/30/2021 07/01/2021 9:34 AM CDT Rule Out COVID-19 07/25/2021 07/25/2021 07/25/2021 8:02 PM CDT documented as of this encounter Care Teams Group Reservations Coordinator Relationship Specialty Start Date End Date Mingo Aldana MD PCP - General Family Practice 07/22/09 07/12/14 Shahida Sutton APRN DICE DEALER PCP - General Nurse Practitioner 08/17/14 08/04/21 Shahida Sutton APRN DICE DEALER PCP - Assigned PCP 07/12/14 05/07/18 Paula Reza MD [facility] [address] [address] PCP - General Internal Medicine 08/05/21 Shahida Sutton APRN DICE DEALER Assigned PCP 07/12/14 09/30/21 Carolynn Ramon, KASIE Personal Advocate & Liaison (PAL) 12/17/18 08/07/21 [place] [address] [place] [address] Assigned Musculoskeletal Provider 12/26/19 08/21/20 Brady Lion MD Assigned Heart and Vascular Provider 12/26/19 08/14/20 Nima France PA-C [address] [facility] 450 [place] [address] Assigned Surgical Provider 05/19/20 08/21/20 Camille Chandler PA-C [address] [facility] [address] [place] [address] Assigned Neuroscience Provider 05/19/20 09/14/20 Anabela Barakat APRN CNP [facility] [place] [address] Assigned Heart and Vascular Provider 08/15/20 08/05/21 Nima France PA-C [address] [address] [place] [address] Assigned Musculoskeletal Provider 08/22/20 11/13/20 [place] [address] [facility] [place] [address] Assigned Musculoskeletal Provider 11/14/20 12/04/20 Fawad York MD [address] [place] [address] Assigned Musculoskeletal Provider 12/05/20 02/05/21 Roopa Almonte MD [address] [facility] 200 [place] [address] Endocrinology, Diabetes, and Metabolism 01/19/21 [place] [address] [facility] 300 [place] [address] Assigned Musculoskeletal Provider 02/06/21 09/16/21 Maryse Burton PA-C [address] [place] [address] Physician Investigation Division Sergeant Dermatology 04/14/21 Marquita Starkey MD [address] [facility] 200 [place] [address] Internal Medicine 05/06/21 05/06/21 Roopa Almonte MD [address] [facility] 200 [place] [address] Hospitalist Endocrinology, Diabetes, and Metabolism 05/30/21 Griffin Joshi MD [address] [facility] [address] [place] [address] Cardiovascular Disease 07/25/21 Rina Magallon, RN Lead Special Equipment Technician 07/29/21 07/11/22 Griffin Joshi MD [address] [facility] S [facility] [address] [place] [address] Assigned Heart and Vascular Provider 08/06/21 10/07/21 Roopa Almonte MD [address] [facility] 200 [place], [place] [address] Assigned Endocrinology Provider 09/10/21 [place] [address] [facility] [address] [address] Assigned Musculoskeletal Provider 09/17/21 10/14/21 Lydia Bernstein PA-C [address] [place] [id number] Assigned PCP 10/01/21 10/21/21 Rosa Maria Love CHW Community Health Worker 10/06/21 [place] [address] [place] [address] Assigned Musculoskeletal Provider 10/15/21 04/26/23 Paula Reza MD [address] [place], [place] [address] Assigned PCP 10/22/21 12/23/21 Keerthi Miner APRN DICE DEALER [address] [place] [address] Assigned Heart and Vascular Provider 10/08/21 02/10/22 Shahida Sutton APRN DICE DEALER Assigned PCP 12/24/21 03/24/22 Porsha Michaels APRN DICE DEALER [address] [place] [address] Assigned Heart and Vascular Provider 02/11/22 05/12/22 Paula Reza MD [address] [place] [address] Assigned PCP 03/25/22 04/07/22 Shahida Sutton APRN DICE DEALER [address] [place] [address] Assigned PCP 04/08/22 06/30/22 Daylin Ludwig, MIKI [facility] [address] [place] [address] Cardiac Rehabilitation Therapist 05/16/23 Laurel Velasquez MD [address] [place] [address] Assigned Heart and Vascular Provider 05/13/22 06/30/22 Daylin Ludwig, MIKI [facility] [address] [place] [address] Cardiac Rehabilitation Therapist 06/08/22 06/09/23 Paula Reza MD [address] [place] [address] Assigned PCP 07/01/22 07/07/22 Porsha Michaels APRN DICE DEALER [address] [place] [address] Assigned Heart and Vascular Provider 07/01/22 07/07/22 Laurel Velasquez MD [address] [place] [address] Assigned Heart and Vascular Provider 07/08/22 08/04/22 Shahida Sutton APRN DICE DEALER Assigned PCP 07/08/22 09/08/22 Marilin Montaño, DICE DEALER [address] [place] [address] Assigned Heart and Vascular Provider 08/05/22 Esha Dewitt MD [address] [facility] 36 [place], [place] [address] MD Gastroenterology 09/06/22 Heather Mosquera MD [address] [place] [address] Internal Medicine 09/06/22 Paula Reza MD [address] [facility] 200 [place], [place] [address] Assigned PCP 09/09/22 01/05/23 Esha Dewitt MD [address] [facility] 36 [place], [place] [address] Assigned Gastroenterology Provider 09/23/22 Valdo Escamilla PA-C [address] [facility] [address] [place], [place] [address] Assigned Neuroscience Provider 09/30/22 Nohelia Abarca PA-C [address] [place], [place] [address] Physician Investigation Division Sergeant Gastroenterology 10/03/22 Heather Mosquera MD [address] [place] [address] Assigned PCP 01/06/23 Fawad York MD [address] [place] [address] Assigned Musculoskeletal Provider 04/27/23 06/25/23 documented as of this encounter
--- OUTSIDE RECORDS SUMMARY | 2023-09-21 08:36 | XMS_ITS | Encounter Summary ---
Author Organization [place] Address [address] [place] [address] Care Team Providers Care Instructional Technology Specialist Name Role Phone HermanShahida huerta APRN MEDICAL RESEARCH TECH Primary Care Provi ford Unavailable Herman, Shahida Cummings APRN MEDICAL RESEARCH TECH Unavailable Un available Herman, Shahida Cummings APRN MEDICAL RESEARCH TECH Unavailable Un available Carolynn Ramon RN Unavailable [phone] Augustine Callaway MD Unavailable Brady Lion MD Unavailable Un available Nima France-C Unavailable [phone] Camille Chandler PA-C Unavailable [phone] Anabela Barakat APRN MEDICAL RESEARCH TECH Unavailable Nima France PA-C Unavailable Basiilo Morillo DO Unavailable [phone] Fawad York MD Unavailable [phone] Roopa Almonte MD Unavailable [phone] Augustine Callaway MD Unavailable Maryse Burton PA-C Unavailable [phone] Marquita Starkey MD Unavailable Roopa Almonte MD Unavailable [phone] Griffin Joshi MD Unavailable Rina Magallon RN Unavailable [phone] Paula Reza MD Primary Care Provider [phone] Griffin Joshi MD Unavailable Roopa Almonte MD Unavailable [phone] [facility] Basilio Naik Unavailable Lydia Bernstein PA-C Unavailable Rosa Maria Love Unavailable [phone] Augustine Callaway MD Unavailable Paula Reza MD Unavailable Keerthi Miner APRN MEDICAL RESEARCH TECH Unavailable [phone] Herman, Shahida Cummings APRN MEDICAL RESEARCH TECH Unavailable Un available Porsha Michaels APRN MEDICAL RESEARCH TECH Unavailable [phone] Paula Reza MD Unavailable Herman, Shahida Cummings APRN MEDICAL RESEARCH TECH Unavailable Un available Daylin Ludwig Unavailable [phone] Laurel Velasquez MD Unavailable [phone] Daylin Ludwig Unavailable [phone] Paula Reza MD Unavailable Porsha Michaels APRN MEDICAL RESEARCH TECH Unavailable [phone] Laurel Velasquez MD Unavailable [phone] Herman, Shahida Cummings APRN MEDICAL RESEARCH TECH Unavailable Un available Marilin Montaño MEDICAL RESEARCH TECH Unavailable [phone] Esha Dewitt MD Unavailable [phone] Heather Mosquera MD Unavailable [phone] Paula Reza MD Unavailable Esha Dewitt MD Unavailable [phone] Valdo Escamilla PA-C Unavailable Nohelia Abarca PA-C Unavailable [phone] Heather Mosquera MD Unavailable Fawad York MD Unavailable Reason for Visit * Reason Onset Date Comments Refill Request 02/18/2015 Encounter Details Date Type Department Care Team (Late st Contact Info) Description 02/18/2015 MyC Refill [facility] [place] [id number] [address] [address] German Black MD [address] [place] [address] Refill Request Social History Tobacco [...] Out COVID-19 02/15/2020 02/15/2020 02/16/2020 2:[address]PERATOR [address] SUPERVISOR Rule Out COVID-19 01/05/2021 01/05/2021 01/06/2021 12:57 PM CDT ESBL 01/05/2021 01/05/2021 Rule Out COVID-19 06/30/2021 06/30/2021 07/01/2021 9:34 AM CDT Rule Out COVID-19 07/25/2021 07/25/2021 07/25/2021 8:02 PM CDT Assessment Noted Time PHQ-9 Depression Total Score: 5 01/31/20 15 7:[address] SUPERVISOR documented as of this encounter Care Teams Instructional Technology Specialist Relationship Specialty Start Date End Date Shahida Sutton APRN MEDICAL RESEARCH TECH PCP - General Nurse Practitioner 08/17/14 08/04/21 Shahida Sutton APRN MEDICAL RESEARCH TECH PCP - Assigned PCP 07/12/14 05/07/18 Paula Reza MD [address] [facility] 200 [place] [address] PCP - General Internal Medicine 08/05/21 Shahida Sutton APRN MEDICAL RESEARCH TECH Assigned PCP 07/12/14 09/30/21 Carolynn Ramon RN Personal Advocate & Liaison (PAL) 12/17/18 08/07/21 [place] [address] [address] [place] [address] Assigned Musculoskeletal Provider 12/26/19 08/21/20 Brady Lion MD Assigned Heart and Vascular Provider 12/26/19 08/14/20 Nima France PA-C [address] [place] [address] Assigned Surgical Provider 05/19/20 08/21/20 Camille Chandler PA-C [address] [place] [address] Assigned Neuroscience Provider 05/19/20 09/14/20 StoesAnabela win APRN CNP [address] [place] [address] Assigned Heart and Vascular Provider 08/15/20 08/05/21 Nima France PA-C 6545 [facility] 450 [place] [address] Assigned Musculoskeletal Provider 08/22/20 11/13/20 [place] [address] [facility] [place] [address] Assigned Musculoskeletal Provider 11/14/20 12/04/20 Fawad York MD [address] [place], [place] [address] Assigned Musculoskeletal Provider 12/05/20 02/05/21 Roopa Almonte MD [address] [facility] 200 [place], [place] [address] Endocrinology, Diabetes, and Metabolism 01/19/21 [place] [address] [facility] [address] [place] [address] Assigned Musculoskeletal Provider 02/06/21 09/16/21 Maryse Burton PA-C [address] [place] [address] Physician Final Inspector Movement Assembly Dermatology 04/14/21 Marquita Starkey MD [address] [facility] 200 [place], [place] [address] Internal Medicine 05/06/21 05/06/21 Roopa Almonte MD [address] [facility] 200 [place] [address] Hospitalist Endocrinology, Diabetes, and Metabolism 05/30/21 Griffin Joshi MD [address] [place] [address] Cardiovascular Disease 07/25/21 Rina Magallon, RN Lead Composition Weatherboard Installer 07/29/21 07/11/22 Griffin Joshi MD [address] [facility] [address] [place] [address] Assigned Heart and Vascular Provider 08/06/21 10/07/21 Roopa Almonte MD [address] [facility] 200 [place] [address] Assigned Endocrinology Provider 09/10/21 [place] [address] [facility] [place] [address] Assigned Musculoskeletal Provider 09/17/21 10/14/21 Lydia Bernstein PA-C [address] [facility] 150 [place] [address] Assigned PCP 10/01/21 10/21/21 Rosa Maria Love CHW Community Health Worker 10/06/21 07/11/22 [place] [address] [address] [facility] 300 [place] [address] Assigned Musculoskeletal Provider 10/15/21 04/26/23 Paula Reza MD [address] [place] [address] Assigned PCP 10/22/21 12/23/21 Keerthi Miner APRN MEDICAL RESEARCH TECH [address] [place] [address] Assigned Heart and Vascular Provider 10/08/21 02/10/22 Shahida Sutton APRN MEDICAL RESEARCH TECH Assigned PCP 12/24/21 03/24/22 Porsha Michaels APRN MEDICAL RESEARCH TECH [address] [place] [address] Assigned Heart and Vascular Provider 02/11/22 05/12/22 Paula Reza MD [address] [place] [address] Assigned PCP 03/25/22 04/07/22 Shahida Sutton APRN MEDICAL RESEARCH TECH [address] [place] [address] Assigned PCP 04/08/22 06/30/22 Daylin Ludwig, MIKI [facility] [address] [place] [address] Cardiac Rehabilitation Therapist 05/16/23 Laurel Velasquez MD [address] [address] Assigned Heart and Vascular Provider 05/13/22 06/30/22 Daylin Ludwig EP [facility] [address] [place], [place] [address] Cardiac Rehabilitation Therapist 06/08/22 06/09/23 Paula Reza MD [address] [place] [address] Assigned PCP 07/01/22 07/07/22 Porsha Michaels APRN MEDICAL RESEARCH TECH [address] [place] [address] Assigned Heart and Vascular Provider 07/01/22 07/07/22 Laurel Velasquez MD [address] [place] [address] Assigned Heart and Vascular Provider 07/08/22 08/04/22 Shahida Sutton APRN MEDICAL RESEARCH TECH Assigned PCP 07/08/22 09/08/22 Marilin Montaño, MEDICAL RESEARCH TECH [address] [place] [address] Assigned Heart and Vascular Provider 08/05/22 Esha Dewitt MD [address] [place] [address] 36 [place], [place] [address] Gastroenterology 09/06/22 Heather Mosquera MD [address] [place] [address] Internal Medicine 09/06/22 Paula Reza MD [address] [place] [address] Assigned PCP 09/09/22 01/05/23 Esha Dewitt MD 420 [facility] 36 [place] [address] Assigned Gastroenterology Provider 09/23/22 Valdo Escamilla PA-C 6363 [facility] 103 [place] [address] Assigned Neuroscience Provider 09/30/22 Nohelia Abarca PA-C 2450 [place] [address] Physician Final Inspector Movement Assembly Gastroenterology 10/03/22 Heather Mosquera MD 6545 [facility] 150 [place] [address] Assigned PCP 01/06/23 Fawad York MD 909 [place] [address] Assigned Musculoskeletal Provider 04/27/23 06/25/23 documented as of this encounter
--- OUTSIDE RECORDS SUMMARY | 2023-09-21 08:37 | XMS_ITS | Encounter Summary ---
Author Organization [facility] Address [address] [place] [address] Care Team Providers Care Division Operations Specialist Name Role Phone Mingo Aldana MD Primary Car e Provider Herman, Shahida Cummings APRN REGISTERED NURSE PRACTITIONER Primary Care Provi ford Unavailable Herman, Shahida Cummings APRN REGISTERED NURSE PRACTITIONER Unavailable Un available Herman, Shahida Cummings APRN REGISTERED NURSE PRACTITIONER Unavailable Un available Carolynn Ramon RN Unavailable [phone] Augustine Callaway MD Unavailable Brady Lion MD Unavailable Un available Nima France-C Unavailable [phone] Camille Chandler PA-C Unavailable [phone] Anabela Barakat APRN REGISTERED NURSE PRACTITIONER Unavailable Nima France-C Unavailable [phone] Basilio Morillo DO Unavailable [phone] Fawad York MD Unavailable [phone] Roopa Almonte MD Unavailable [phone] Augustine Callaway MD Unavailable Maryse Burton PA-C Unavailable Marquita Starkey MD Unavailable [phone] Roopa Almonte MD Unavailable [phone] Griffin Joshi MD Unavailable Rina Magallon RN Unavailable [phone] Paula Reza MD Primary Care Provider [phone] Griffin Joshi MD Unavailable Roopa Almonte MD Unavailable [phone] [facility] DO Unavailable Lydia Bernstein PA-C Unavailable Rosa Maria Love Unavailable [phone] Augustine Callaway MD Unavailable Paula Reza MD Unavailable Keerthi Miner APRN REGISTERED NURSE PRACTITIONER Unavailable Herman, Shahida Cummings APRN REGISTERED NURSE PRACTITIONER Unavailable Un available Porsha Michaels APRN REGISTERED NURSE PRACTITIONER Unavailable [phone] Paula Reza MD Unavailable Herman, Shahida Cummings APRN REGISTERED NURSE PRACTITIONER Unavailable Un available Daylin Ludwig Unavailable [phone] Laurel Velasquez MD Unavailable [phone] Daylin Ludwig Unavailable [phone] Paula Reza MD Unavailable Porsha Michaels APRN REGISTERED NURSE PRACTITIONER Unavailable [phone] Laurel Velasquez MD Unavailable [phone] Herman, Shahida Cummings APRN REGISTERED NURSE PRACTITIONER Unavailable Un available Marilin Montaño REGISTERED NURSE PRACTITIONER Unavailable [phone] Esha Dewitt MD Unavailable [phone] Heather Mosquera MD Unavailable [phone] Paula Reza MD Unavailable Esha Dewitt MD Unavailable [phone] Valdo Escamilla PA-C Unavailable Nohelia Abarca PA-C Unavailable [phone] Heather Mosquera MD Unavailable Fawad York MD Unavailable [phone] Encounter Details Date Type Department Care Team (Late st Contact Info) Description 12/05/[address] [address] [place] Social History Tobacco [...] Out COVID-19 02/15/2020 02/15/2020 02/16/2020 2:32 PM POLICY SERVICE COORDINATOR Rule Out COVID-19 01/05/2021 01/05/2021 01/06/2021 12:57 PM CDT ESBL 01/05/2021 01/05/2021 Rule Out COVID-19 06/30/2021 06/30/2021 07/01/2021 9:34 AM CDT Rule Out COVID-19 07/25/2021 07/25/2021 07/25/2021 8:02 PM CDT documented as of this encounter Care Teams Division Operations Specialist Relationship Specialty Start Date End Date Mingo Aldana MD PCP - General Family Practice 07/22/09 07/12/14 Shahida Sutton APRN REGISTERED NURSE PRACTITIONER PCP - General Nurse Practitioner 08/17/14 08/04/21 Shahida Sutton APRN REGISTERED NURSE PRACTITIONER PCP - Assigned PCP 07/12/14 05/07/18 Paula Reza MD [address] [facility] 200 [place] [address] PCP - General Internal Medicine 08/05/21 Shahida Sutton APRN REGISTERED NURSE PRACTITIONER Assigned PCP 07/12/14 09/30/21 Carolynn Ramon RN Personal Advocate & Liaison (PAL) 12/17/18 08/07/21 [place] [address] [place], [place] [address] Assigned Musculoskeletal Provider 12/26/19 08/21/20 Brady Lion MD Assigned Heart and Vascular Provider 12/26/19 08/14/20 Nima France PA-C [address] [place] [address] Assigned Surgical Provider 05/19/20 08/21/20 Camille Chandler PA-C [address] [place] [address] Assigned Neuroscience Provider 05/19/20 09/14/20 Anabela Barakat APRN REGISTERED NURSE PRACTITIONER [address] [place] [address] Assigned Heart and Vascular Provider 08/15/20 08/05/21 Nima France PA-C [address] [facility] 450 [place] [address] Assigned Musculoskeletal Provider 08/22/20 11/13/20 [place] [address] [facility] [place], [place] [address] Assigned Musculoskeletal Provider 11/14/20 12/04/20 Fawad York MD [address] [place], [place] [address] Assigned Musculoskeletal Provider 12/05/20 02/05/21 Roopa Almonte MD [address] [facility] 200 [place] [address] Endocrinology, Diabetes, and Metabolism 01/19/21 [place] [address] [facility] 300 [place] [address] Assigned Musculoskeletal Provider 02/06/21 09/16/21 Maryse Burton PA-C [address] [place] [address] Physician Graphic Designer Dermatology 04/14/21 Marquita Starkey MD [address] [facility] 200 [place] [address] Internal Medicine 05/06/21 05/06/21 Roopa Almonte MD [address] [place] [address] Hospitalist Endocrinology, Diabetes, and Metabolism 05/30/21 Griffin Joshi MD [address] [place] [address] Cardiovascular Disease 07/25/21 Rina Magallon, RN Lead Products Mechanical Design Engineer 07/29/21 07/11/22 Griffin Joshi MD [address] [place] [address] Assigned Heart and Vascular Provider 08/06/21 10/07/21 Roopa Almonte MD [address] [facility] 200 [place] [address] Assigned Endocrinology Provider 09/10/21 [place] [address] [facility] [place] [address] Assigned Musculoskeletal Provider 09/17/21 10/14/21 Lydia Bernstein PA-C [address] [facility] [address] [place] [address] Assigned PCP 10/01/21 10/21/21 Rosa Maria Love CHW Community Health Worker 10/06/21 [place] [address] [address] [place] [address] Assigned Musculoskeletal Provider 10/15/21 04/26/23 Paula Reza MD [address] [place] [address] Assigned PCP 10/22/21 12/23/21 Keerthi Miner APRN REGISTERED NURSE PRACTITIONER [address] [place] [address] Assigned Heart and Vascular Provider 10/08/21 02/10/22 Shahida Sutton APRN REGISTERED NURSE PRACTITIONER Assigned PCP 12/24/21 03/24/22 Porsha Michaels APRN REGISTERED NURSE PRACTITIONER [address] [place] [address] Assigned Heart and Vascular Provider 02/11/22 05/12/22 Paula Reza MD [address] [place] [address] Assigned PCP 03/25/22 04/07/22 Shahida Sutton APRN REGISTERED NURSE PRACTITIONER [address] [place] [address] Assigned PCP 04/08/22 06/30/22 Daylin Ludwig, MIKI [facility] [address] [place] [address] Cardiac Rehabilitation Therapist 05/16/23 Laurel Velasquez MD [address] [place] [address] Assigned Heart and Vascular Provider 05/13/22 06/30/22 Daylin Ludwig EP [facility] [address] [place], [place] [address] Cardiac Rehabilitation Therapist 06/08/22 06/09/23 Paula Reza MD [address] [place], [place] [address] Assigned PCP 07/01/22 07/07/22 Porsha Michaels APRN REGISTERED NURSE PRACTITIONER [address] [place] [address] Assigned Heart and Vascular Provider 07/01/22 07/07/22 Laurel Velasquez MD [address] [place] [address] Assigned Heart and Vascular Provider 07/08/22 08/04/22 Shahida Sutton, DUANE REGISTERED NURSE PRACTITIONER Assigned PCP 07/08/22 09/08/22 Marilin Montaño, REGISTERED NURSE PRACTITIONER [address] [place] [address] Assigned Heart and Vascular Provider 08/05/22 Esha Dewitt MD [address] [place] [id number] Gastroenterology 09/06/22 Heather Mosquera MD [address] [place] [address] Internal Medicine 09/06/22 Paula Reza MD [address] [place] [address] Assigned PCP 09/09/22 01/05/23 Esha Dewitt MD [address] [facility] 36 [place] [address] Assigned Gastroenterology Provider 09/23/22 Valdo Escamilla PA-C [address] [facility] [address] [place], [place] [address] Assigned Neuroscience Provider 09/30/22 Nohelia Abarca PA-C [address] [place] [address] Physician Graphic Designer Gastroenterology 10/03/22 Heather Mosquera MD [address] [facility] 150 [place] [address] Assigned PCP 01/06/23 Fawad York MD [address] [place], [place] [address] Assigned Musculoskeletal Provider 04/27/23 06/25/23 documented as of this encounter
--- OUTSIDE RECORDS SUMMARY | 2023-09-21 08:37 | XMS_ITS | Encounter Summary ---
Author Organization [facility] Address [address] [place] [address] Care Team Providers Care Clinical Faculty Name Role Phone Mingo Aldana MD Primary Car e Provider Herman, Shahida Cummings APRN QA INTERN Primary Care Provi ford Unavailable Herman, Shahida Cummings APRN QA INTERN Unavailable Un available Herman, Shahida Cummings APRN QA INTERN Unavailable Un available Carolynn Ramon RN Unavailable [phone] Augustine Callaway MD Unavailable Brady Lion MD Unavailable Un available Nima France-C Unavailable [phone] Camille Chandler PA-C Unavailable [phone] Anabela Barakat APRN QA INTERN Unavailable Nima France-C Unavailable [phone] Basilio Morillo DO Unavailable [phone] Fawad York MD Unavailable [phone] Roopa Almonte MD Unavailable [phone] Augustine Callaway MD Unavailable Maryse Burton PA-C Unavailable Marquita Starkey MD Unavailable [phone] Roopa Almonte MD Unavailable [phone] Griffin Joshi MD Unavailable Rina Magallon RN Unavailable [phone] Paula Reza MD Primary Care Provider [phone] Griffin Joshi MD Unavailable Roopa Almonte MD Unavailable [phone] [facility] win DO Unavailable Lydia Bernstein PA-C Unavailable Rosa Maria Love Unavailable [phone] Augustine Callaway MD Unavailable Paula Reza MD Unavailable Keerthi Miner APRN QA INTERN Unavailable Herman, Shahida Cummings APRN QA INTERN Unavailable Un available Porsha Michaels APRN QA INTERN Unavailable [phone] Paula Reza MD Unavailable Herman, Shahida Cummings APRN QA INTERN Unavailable Un available Daylin Ludwig Unavailable [phone] Laurel Velasquez MD Unavailable [phone] Daylin Ludwig Unavailable [phone] Paula Reza MD Unavailable Porsha Michaels APRN QA INTERN Unavailable [phone] Laurel Velasquez MD Unavailable [phone] Herman, Shahida Cummings APRN QA INTERN Unavailable Un available Marilin Montaño QA INTERN Unavailable [phone] Esha Dewitt MD Unavailable [phone] Heather Mosquera MD Unavailable Paula Reza MD Unavailable Esha Dewitt MD Unavailable [phone] Valdo Escamilla Deo PA-C Unavailable Rima Wilfredosima PA-C Unavailable [phone] Heather Mosquera MD Unavailable [phone] Fawad York MD Unavailable [phone] Reason for Visit * Reason Onset Date Comments Refill Request 10/15/2012 Encounter Details Date Type Department Care Team (Late st Contact Info) Description [facility]/15[facility]2012 [facility] [place] [phone] [address] Kavon Garrido MD [address] [facility] [place] [address] Refill Request Social History Tobacco [...] Terrell Sent: 10/15/2012 4:22 PM To: Psychiatry Nurs[facility] Subject: Medication Renewal Request Original authorizing provider: Kavon Garrido MD, MD Mauro Terrell would like a refill of the following medications: zolpidem (AMBIEN CR) 12.5 MG CR tablet [Kavon Garrido MD, MD] Preferred pharmacy: [id number] [id number] R[address] Calderon Comment: Dr. Garrido, we have an appt scheduled next week. In you have any concerns I can be contacted at [phone]. 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 Rule Out COVID-19 01/05/2021 01/05/2021 01/06/2021 12:57 PM CDT ESBL 01/05/2021 01/05/2021 Rule Out COVID-19 06/30/2021 06/30/2021 07/01/2021 9:34 AM CDT Rule Out COVID-19 07/25/2021 07/25/2021 07/25/2021 8:02 PM CDT documented as of this encounter Care Teams Clinical Faculty Relationship Specialty Start Date End Date Mingo Aldana MD PCP - General Family Practice 07/22/09 07/12/14 Shahida Sutton APRN CNP PCP - General Nurse Practitioner 08/17/14 08/04/21 Shahida Sutton APRN CNP PCP - Assigned PCP 07/12/14 05/07/18 Paula Reza MD [address] [facility] 200 [place] [address] PCP - General Internal Medicine 08/05/21 Shahida Sutton APRN CNP Assigned PCP 07/12/14 09/30/21 Carolynn Ramon, KASIE Personal Advocate & Liaison (PAL) 12/17/18 08/07/21 [place] [address] [place] [address] Assigned Musculoskeletal Provider 12/26/19 08/21/20 Brady Lion MD Assigned Heart and Vascular Provider 12/26/19 08/14/20 Nima France PA-C [address] [place] [address] Assigned Surgical Provider 05/19/20 08/21/20 Camille Chandler PA-C [address] [place], [place] [address] Assigned Neuroscience Provider 05/19/20 09/14/20 Anabela Barakat APRN QA INTERN [address] [place] [address] Assigned Heart and Vascular Provider 08/15/20 08/05/21 Nima France PA-C [address] [place], [place] [address] Assigned Musculoskeletal Provider 08/22/20 11/13/20 [place] [address] [facility] [place] [address]409 Assigned Musculoskeletal Provider 11/14/20 12/04/20 Fawad York MD [address] [place], [place] [address] Assigned Musculoskeletal Provider 12/05/20 02/05/21 Roopa Almonte MD [address] [facility] 200 [place] [address] Endocrinology, Diabetes, and Metabolism 01/19/21 [place] [address] [facility] 300 [place] [address] Assigned Musculoskeletal Provider 02/06/21 09/16/21 Maryse Burton PA-C [address] [place] [address] Physician Radio Despatcher Dermatology 04/14/21 Marquita Starkey MD [address] [facility] 200 [place] [address] Internal Medicine 05/06/21 05/06/21 Roopa Almonte MD [address] [facility] 200 [place] [address] Hospitalist Endocrinology, Diabetes, and Metabolism 05/30/21 Griffin Joshi MD [address] [place] [address] Cardiovascular Disease 07/25/21 Rina Magallon, RN Lead Bullet Swaging Machine Adjuster 07/29/21 07/11/22 Griffin Joshi MD [address] [place] [address] Assigned Heart and Vascular Provider 08/06/21 10/07/21 Roopa Almonte MD [address] [facility] [address] [place] [address] Assigned Endocrinology Provider 09/10/21 [place] [address] [facility] [place] [address] Assigned Musculoskeletal Provider 09/17/21 10/14/21 Lydia Bernstein PA-C [address] [place] [address] Assigned PCP 10/01/21 10/21/21 Rosa Maria Love Cristina Community Health Worker 10/06/21 [place] [address] [facility] [address] [place] [address] Assigned Musculoskeletal Provider 10/15/21 04/26/23 Paula Reza MD [address] [place], [place] [address] Assigned PCP 10/22/21 12/23/21 Keerthi Miner APRN QA INTERN [address] [place] [address] Assigned Heart and Vascular Provider 10/08/21 02/10/22 Shahida Sutton APRN QA INTERN Assigned PCP 12/24/21 03/24/22 Porsha Michaels APRN QA INTERN [address] [place] [address] Assigned Heart and Vascular Provider 02/11/22 05/12/22 Paula Reza MD [address] [place], [place] [address] Assigned PCP 03/25/22 04/07/22 Shahida Sutton APRN QA INTERN [address] [place] [address] Assigned PCP 04/08/22 06/30/22 Daylin Ludwig, EP [facility] [address] [place] [address] Cardiac Rehabilitation Therapist 05/16/23 Laurel Velasquez MD [address] [place] [place] [address] Assigned Heart and Vascular Provider 05/13/22 06/30/22 Daylin Ludwig, [facility] [address] [place] [address] Cardiac Rehabilitation Therapist 06/08/22 06/09/23 Paula Reza MD [address] [place] [address] Assigned PCP 07/01/22 07/07/22 Porsha Michaels APRN QA INTERN [address] [place] [address] Assigned Heart and Vascular Provider 07/01/22 07/07/22 Laurel Velasquez MD [address] [place], [place] [address] Assigned Heart and Vascular Provider 07/08/22 08/04/22 Shahida Sutton, RING CONDUCTOR QA INTERN Assigned PCP 07/08/22 09/08/22 Marilin Montaño, QA INTERN [address] [place] [address] Assigned Heart and Vascular Provider 08/05/22 Esha Dewitt MD [address] [place] [address] Gastroenterology 09/06/22 Heather Mosquera MD [address] [place] [address] Internal Medicine 09/06/22 Paula Reza MD [address] [facility] 200 [place] [address] Assigned PCP 09/09/22 01/05/23 Esha Dewitt MD [address] [place] [address] Assigned Gastroenterology Provider 09/23/22 Valdo Escamilla PA-C [address] [place] [address] Assigned Neuroscience Provider 09/30/22 Nohelia Abarca PA-C [address] [place] [address] Physician Radio Despatcher Gastroenterology 10/03/22 Heather Mosquera MD [address] [address] Assigned PCP 01/06/23 Fawad York MD [address] [place], [place] [address] Assigned Musculoskeletal Provider 04/27/23 06/25/23 documented as of this encounter
--- OUTSIDE RECORDS SUMMARY | 2023-09-21 08:37 | XMS_ITS | Encounter Summary ---
Author Organization [place] Address [address] [place] [address] Care Team Providers Care International Trade Compliance Manager Name Role Phone Mingo Aldana MD Primary Car e Provider Herman, Shahida Cummings APRN PROTECTION CONSULTANT Primary Care Provi ford Unavailable Herman, Shahida Cummings APRN PROTECTION CONSULTANT Unavailable Un available Herman, Shahida Cummings APRN PROTECTION CONSULTANT Unavailable Un available Carolynn Ramon RN Unavailable [phone] Augustine Callaway MD Unavailable Brady Lion MD Unavailable Un available Nima France-C Unavailable [phone] Camille Chandler PA-C Unavailable [phone] Anabela Barakat APRN PROTECTION CONSULTANT Unavailable Nima France-C Unavailable [phone] Basilio Morillo DO Unavailable Fawad York MD Unavailable [phone] Roopa Almonte MD Unavailable [phone] Augustine Callaway MD Unavailable Maryse Burton PA-C Unavailable Marquita Starkey MD Unavailable [phone] Roopa Almonte MD Unavailable [phone] Griffin Joshi MD Unavailable Rina Magallon RN Unavailable [phone] Paula Reza MD Primary Care Provider [phone] Griffin Joshi MD Unavailable Roopa Almonte MD Unavailable [phone] [facility] win DO Unavailable Lydia Bernstein PA-C Unavailable Rosa Maria Love Unavailable [phone] Augustine Callaway MD Unavailable Paula Reza MD Unavailable Keerthi Miner APRN PROTECTION CONSULTANT Unavailable Herman, Shahida Cummings APRN PROTECTION CONSULTANT Unavailable Un available Porsha Michaels APRN PROTECTION CONSULTANT Unavailable [phone] Paula Reza MD Unavailable Herman, Shahida Cummings APRN PROTECTION CONSULTANT Unavailable Un available Daylin Ludwig Unavailable [phone] Laurel Velasquez MD Unavailable [phone] Daylin Ludwig Unavailable [phone] Paula Reza MD Unavailable Porsha Michaels APRN PROTECTION CONSULTANT Unavailable [phone] Laurel Velasquez MD Unavailable [phone] Herman, Shahida Cummings APRN PROTECTION CONSULTANT Unavailable Un available Marilin Montaño PROTECTION CONSULTANT Unavailable [phone] Esha Dewitt MD Unavailable [phone] Heather Mosquera MD Unavailable [phone] Paula Reza MD Unavailable Esha Dewitt MD Unavailable [phone] Valdo Escamilla Deo PA-C Unavailable Nohelia Abarca PA-C Unavailable [phone] Heather Mosquera MD Unavailable Fawad York MD Unavailable [phone] Reason for Visit * Reason Onset Date Comments Refill Request 07/05/2012 Toprol XL Encounter Details Date Type Department Care Team (Late st Contact Info) Description 07/05/2012 MyC Refill M [address], [address] [place] [address] Mingo Aldana MD [facility] [address] [place] [address] Refill Request (Toprol XL) Social History Tobacco [...] King - 07/05/2012 10:53 AM CDT[facility] Original authorizing provider: Mingo Aldana MD, MD Mauro Terrell would like a refill of the following medications: metoprolol (TOPROL-XL) 50 MG 24 hr tablet [Mingo Aldana MD, ] Preferred pharmacy: [facility] [place] [address] RIZWANA Calderon Comment: I requested this through [...] Out COVID-19 02/15/2020 02/15/2020 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 Rule Out COVID-19 01/05/2021 01/05/2021 01/06/2021 12:57 PM CDT ESBL 01/05/2021 01/05/2021 Rule Out COVID-19 06/30/2021 06/30/2021 07/01/2021 9:34 AM CDT Rule Out COVID-19 07/25/2021 07/25/2021 07/25/2021 8:02 PM CDT documented as of this encounter Care Teams International Trade Compliance Manager Relationship Specialty Start Date End Date Mingo Aldana MD PCP - General Family Practice 07/22/09 07/12/14 Shahida Sutton APRN PROTECTION CONSULTANT PCP - General Nurse Practitioner 08/17/14 08/04/21 Shahida Sutton APRN PROTECTION CONSULTANT PCP - Assigned PCP 07/12/14 05/07/18 Paula Reza MD [address] [facility] [address] [place] [address] PCP - General Internal Medicine 08/05/21 Shahida Sutton APRN PROTECTION CONSULTANT Assigned PCP 07/12/14 09/30/21 Carolynn Ramon RN Personal Advocate & Liaison (PAL) 12/17/18 08/07/21 [place] [address] [place], [place] [address] Assigned Musculoskeletal Provider 12/26/19 08/21/20 Brady Lion MD Assigned Heart and Vascular Provider 12/26/19 08/14/20 Nima France PA-C [address] [place] [address] Assigned Surgical Provider 05/19/20 08/21/20 Camille Chandler PA-C [address] [place] [address] Assigned Neuroscience Provider 05/19/20 09/14/20 Anabela Barakat APRN PROTECTION CONSULTANT [address] [place] [address] Assigned Heart and Vascular Provider 08/15/20 08/05/21 Nima France PA-C [address] [facility] [address] [place] [address] Assigned Musculoskeletal Provider 08/22/20 11/13/20 [place] [address] [facility] [place], [place] [address] Assigned Musculoskeletal Provider 11/14/20 12/04/20 Fawad York MD [address] [place], [place] [address] Assigned Musculoskeletal Provider 12/05/20 02/05/21 Roopa Almonte MD [address] [facility] [address] [place] [address] Endocrinology, Diabetes, and Metabolism 01/19/21 [place] [address] [facility] [address] [place] [address] Assigned Musculoskeletal Provider 02/06/21 09/16/21 Maryse Burton PA-C [address] [place] [address] Physician Dinkey Operator Dermatology 04/14/21 Marquita Starkey MD [address] [facility] [address] [place] [address] Internal Medicine 05/06/21 05/06/21 Roopa Almonte MD [address] [place] [address] Hospitalist Endocrinology, Diabetes, and Metabolism 05/30/21 Griffin Joshi MD [address] [facility] [address] [place] [address] Cardiovascular Disease 07/25/21 Rina Magallon, RN Lead Bailer Tenders Supervisor 07/29/21 07/11/22 Griffin Joshi MD [address] [facility] [address] [place] [address] Assigned Heart and Vascular Provider 08/06/21 10/07/21 Roopa Almonte MD [address] [address] [place], [place] [address] Assigned Endocrinology Provider 09/10/21 [place] [address] [facility] [place] [address] Assigned Musculoskeletal Provider 09/17/21 10/14/21 Lydia Bernstein PA-C [address] [facility] [address] [place] [address] Assigned PCP 10/01/21 10/21/21 Rosa Maria Love CHW Community Health Worker 10/06/21 [place] [address] [facility] [address] [place] [address] Assigned Musculoskeletal Provider 10/15/21 04/26/23 Paula Reza MD [address] [place] [address] Assigned PCP 10/22/21 12/23/21 Keerthi Miner APRN PROTECTION CONSULTANT [address] [place] [address] Assigned Heart and Vascular Provider 10/08/21 02/10/22 Shahida Sutton APRN PROTECTION CONSULTANT Assigned PCP 12/24/21 03/24/22 Porsha Michaels APRN PROTECTION CONSULTANT [address] [place] [address] Assigned Heart and Vascular Provider 02/11/22 05/12/22 Paula Reza MD [address] [place] [address] Assigned PCP 03/25/22 04/07/22 Shahida Sutton APRN PROTECTION CONSULTANT [address] [place] [address] Assigned PCP 04/08/22 06/30/22 Daylin Ludwig EP [facility] [address] [place] [address] Cardiac Rehabilitation Therapist 05/16/23 Laurel Velasquez MD [address] [address] Assigned Heart and Vascular Provider 05/13/22 06/30/22 Daylin Ludwig EP [facility] [address] [place] [address] Cardiac Rehabilitation Therapist 06/08/22 06/09/23 Paula Reza MD [address] [place], [place] [address] Assigned PCP 07/01/22 07/07/22 Porsha Michaels APRN PROTECTION CONSULTANT [address] [place] [address] Assigned Heart and Vascular Provider 07/01/22 07/07/22 Laurel Velasquez MD [address] [place] [address] Assigned Heart and Vascular Provider 07/08/22 08/04/22 Shahida Sutton, BOLT MAN PROTECTION CONSULTANT Assigned PCP 07/08/22 09/08/22 Marilin Montaño, PROTECTION CONSULTANT [address] [place] [address] Assigned Heart and Vascular Provider 08/05/22 Esha Dewitt MD [address] [place] [address] 36 [place], [place] [address] Gastroenterology 09/06/22 Heather Mosquera MD [address] [place] [address] Internal Medicine 09/06/22 Paula Reza MD [address] [place] [address] Assigned PCP 09/09/22 01/05/23 Esha Dewitt MD [address] [facility] 36 [place], [place] [address] Assigned Gastroenterology Provider 09/23/22 Valdo Escamilla PA-C [address] [facility] [address] [place], [place] [address] Assigned Neuroscience Provider 09/30/22 Nohelia Abarca PA-C [address] [place], [place] [address] Physician Dinkey Operator Gastroenterology 10/03/22 Heather Mosquera MD [address]45 [facility] [address] [place], [place] [address] Assigned PCP 01/06/23 Fawad York MD [address] [place], [place] [address] Assigned Musculoskeletal Provider 04/27/23 06/25/23 documented as of this encounter
--- OUTSIDE RECORDS SUMMARY | 2023-09-21 08:37 | XMS_ITS | Encounter Summary ---
Author Organization [place] Address [address] [place] [address] Care Team Providers Care Purchasing Administrator Name Role Phone Mingo Aldana MD Primary Car e Provider Herman, Shahida Cummings APRN SOLVENT PLANT OPERATOR Primary Care Provi ford Unavailable Herman, Shahida Cummings APRN SOLVENT PLANT OPERATOR Unavailable Un available Herman, Shahida Cummings APRN SOLVENT PLANT OPERATOR Unavailable Un available Carolynn Ramon RN Unavailable [phone] Augustine Callaway MD Unavailable Brady Lion MD Unavailable Un available Nima France-C Unavailable [phone] Camille Chandler PA-C Unavailable [phone] Anablea Barakat APRN SOLVENT PLANT OPERATOR Unavailable Nima France-C Unavailable [phone] Basilio Morillo DO Unavailable [phone] Fawad York MD Unavailable [phone] Roopa Almonte MD Unavailable [phone] Augustine Callaway MD Unavailable Maryse Burton PA-C Unavailable Marquita Starkey MD Unavailable [phone] Roopa Almonte MD Unavailable [phone] Griffin Joshi MD Unavailable Rina Magallon RN Unavailable [phone] Paula Reza MD Primary Care Provider [phone] Griffin Joshi MD Unavailable Roopa Almonte MD Unavailable [phone] [facility] win DO Unavailable Lydia Bernstein PA-C Unavailable Rosa Maria Love Unavailable [phone] Augustine Callaway MD Unavailable Paula Reza MD Unavailable Keerthi Miner APRN SOLVENT PLANT OPERATOR Unavailable Herman, Shahida Cummings APRN SOLVENT PLANT OPERATOR Unavailable Un available Porsha Michaels APRN SOLVENT PLANT OPERATOR Unavailable [phone] Paula Reza MD Unavailable Herman, Shahida Cummings APRN SOLVENT PLANT OPERATOR Unavailable Un available Daylin Ludwig Unavailable [phone] Laurel Velasquez MD Unavailable [phone] Daylin Ludwig Unavailable [phone] Paula Reza MD Unavailable Porsha Michaels APRN SOLVENT PLANT OPERATOR Unavailable [phone] Laurel Velasquez MD Unavailable [phone] Herman, Shahida Cummings APRN SOLVENT PLANT OPERATOR Unavailable Un available Marilin Montaño SOLVENT PLANT OPERATOR Unavailable [phone] Esha Dewitt MD Unavailable [phone] Heather Mosquera MD Unavailable Paula Reza MD Unavailable Esha Dewitt MD Unavailable [phone] AyseStanford cabrerashiv Desouza PA-C Unavailable Nohelia Abarca PA-C Unavailable [phone] Heather Mosquera MD Unavailable Fawad York MD Unavailable [phone] Reason for Visit * Reason Onset Date Comments MyChart Communication 11/06/2012 11/06/12 CT results Encounter Details Date Type Department Care Team (Late st Contact Info) Description 11/06/2012 MyC Medical [address], [address] [place] [address] iMngo Aldana MD [facility] [address] [place] [address] MyChart Communication (11/06/12 CT results) Social History [...] Out COVID-19 02/15/2020 02/15/2020 02/16/2020 2:32 PM 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 Rule Out COVID-19 01/05/2021 01/05/2021 01/06/2021 12:57 PM CDT ESBL 01/05/2021 01/05/2021 Rule Out COVID-19 06/30/2021 06/30/2021 07/01/2021 9:34 AM CDT Rule Out COVID-19 07/25/2021 07/25/2021 07/25/2021 8:02 PM CDT documented as of this encounter Care Teams Purchasing Administrator Relationship Specialty Start Date End Date Katya Jasonyaneth Bimal Celestin MD PCP - General Family Practice 07/22/09 07/12/14 Shahida Sutton APRN SOLVENT PLANT OPERATOR PCP - General Nurse Practitioner 08/17/14 08/04/21 Shahida Sutton APRN SOLVENT PLANT OPERATOR PCP - Assigned PCP 07/12/14 05/07/18 Paula Reza MD [address] [place] [address] PCP - General Internal Medicine 08/05/21 Shahida Sutton APRN SOLVENT PLANT OPERATOR Assigned PCP 07/12/14 09/30/21 Carolynn Ramon, KASIE Personal Advocate & Liaison (PAL) 12/17/18 08/07/21 [place] [address] [place] [address] Assigned Musculoskeletal Provider 12/26/19 08/21/20 Brady Lion MD Assigned Heart and Vascular Provider 12/26/19 08/14/20 Nima France PA-C [address] [place] [address] Assigned Surgical Provider 05/19/20 08/21/20 Camille Chandler PA-C 6545 [facility] [address] [place], [place] [address] Assigned Neuroscience Provider 05/19/20 09/14/20 Anabela Barakat APRN SOLVENT PLANT OPERATOR 1700 [place] [address] Assigned Heart and Vascular Provider 08/15/20 08/05/21 Nima France PA-C 6545 [facility] 450 [place] [address] Assigned Musculoskeletal Provider 08/22/20 11/13/20 [place] [address] [place] [address] Assigned Musculoskeletal Provider 11/14/20 12/04/20 Fawad York MD [address] [place] [address] Assigned Musculoskeletal Provider 12/05/20 02/05/21 Roopa Almonte MD [address] [facility] 200 [place] [address] Endocrinology, Diabetes, and Metabolism 01/19/21 [place] [address] [facility] 300 [place], [place] [address] Assigned Musculoskeletal Provider 02/06/21 09/16/21 Maryse Burton PA-C [address] [place], [place] [address] Physician Printer Assistant Dermatology 04/14/21 Marquita Starkey MD [address] [facility] [address] [place] [address] Internal Medicine 05/06/21 05/06/21 Roopa Almonte MD [address] [place] [facility] [address] [place] [address] Hospitalist Endocrinology, Diabetes, and Metabolism 05/30/21 Griffin Joshi MD [address] [place] [address] Cardiovascular Disease 07/25/21 Rina Magallon RN Lead Nursing Specialist 07/29/21 07/11/22 Griffin Joshi MD [address] [place] [address] Assigned Heart and Vascular Provider 08/06/21 10/07/21 Roopa Almonte MD [address] [place], [place] [address] Assigned Endocrinology Provider 09/10/21 [place] [address] [facility] [place] [address] Assigned Musculoskeletal Provider 09/17/21 10/14/21 Lydia Bernstein PA-C [address] [place] [address] Assigned PCP 10/01/21 10/21/21 Klarissa Lovesay, W Community Health Worker 10/06/21 [place] [address] [place] [address] Assigned Musculoskeletal Provider 10/15/21 04/26/23 Paula Reza MD [address] [place] [address] Assigned PCP 10/22/21 12/23/21 Keerthi Miner APRN SOLVENT PLANT OPERATOR [address] [place] [address] Assigned Heart and Vascular Provider 10/08/21 02/10/22 Shahida Sutton APRN SOLVENT PLANT OPERATOR Assigned PCP 12/24/21 03/24/22 Porsha Michaels APRN SOLVENT PLANT OPERATOR [address] [address] Assigned Heart and Vascular Provider 02/11/22 05/12/22 Paula Reza MD [address] [place] [address] Assigned PCP 03/25/22 04/07/22 Shahida Sutton APRN SOLVENT PLANT OPERATOR [address] [address] Assigned PCP 04/08/22 06/30/22 Daylin Ludwig EP [facility] [address] [address] Cardiac Rehabilitation Therapist 05/16/23 Laurel Velasquez MD [address] [address] Assigned Heart and Vascular Provider 05/13/22 06/30/22 Daylin Ludwig EP [facility] [address] [address] Cardiac Rehabilitation Therapist 06/08/22 06/09/23 Paula Reza MD [address] [facility] [address] [place], [place] [address] Assigned PCP 07/01/22 07/07/22 Porsha Michaels APRN SOLVENT PLANT OPERATOR [address] [address] Assigned Heart and Vascular Provider 07/01/22 07/07/22 Laurel Velasquez MD [address] [place] [address] Assigned Heart and Vascular Provider 07/08/22 08/04/22 Shahida Sutton, SENIOR BIOSTATISTICIAN SOLVENT PLANT OPERATOR Assigned PCP 07/08/22 09/08/22 Marilin Montaño, SOLVENT PLANT OPERATOR [address] [place] [address] Assigned Heart and Vascular Provider 08/05/22 Esha Dewitt MD 420 [facility] 36 [place], [place] [address] Gastroenterology 09/06/22 Heather Mosquera MD [address] [place] [address] Internal Medicine 09/06/22 Paula Reza MD [address] [place] [address] Assigned PCP 09/09/22 01/05/23 Esha Dewitt MD 420 [facility] 36 [place], [place] [address] Assigned Gastroenterology Provider 09/23/22 Valdo Escamilla PA-C [address] [facility] [address] [address] [place], [place] [address] Assigned Neuroscience Provider 09/30/22 Nohelia Abarca PA-C [address] [facility] [place] [place] [address] Physician Printer Assistant Gastroenterology 10/03/22 Heather Mosquera MD [address] [place] [address] Assigned PCP 01/06/23 Fawad York MD [address] [place], [place] [address] Assigned Musculoskeletal Provider 04/27/23 06/25/23 documented as of this encounter
--- OUTSIDE RECORDS SUMMARY | 2023-09-21 08:37 | XMS_ITS | Encounter Summary ---
Author Organization [facility] Address [address] [place] [address] Care Team Providers Care Plate Straightener Name Role Phone Mingo Aldana MD Primary Car e Provider Herman, Shahida Cummings APRN ACTIVITY THERAPY SPECIALIST Primary Care Provi ford Unavailable Herman, Shahida Cummings APRN ACTIVITY THERAPY SPECIALIST Unavailable Un available Herman, Shahida Cummings APRN ACTIVITY THERAPY SPECIALIST Unavailable Un available Carolynn Ramon RN Unavailable [phone] Augustine Callaway MD Unavailable Brady Lion MD Unavailable Un available Nima France-C Unavailable [phone] Camille Chandler PA-C Unavailable [phone] Anabela Barakat APRN ACTIVITY THERAPY SPECIALIST Unavailable Nima France-C Unavailable [phone] Basilio Morillo DO Unavailable [phone] Fawad York MD Unavailable [phone] Roopa Almonte MD Unavailable [phone] Augustine Callaway MD Unavailable Maryse Burton PA-C Unavailable Marquita Starkey MD Unavailable [phone] Roopa Almonte MD Unavailable [phone] Griffin Joshi MD Unavailable Rina Magallon RN Unavailable [phone] Paula Reza MD Primary Care Provider [phone] Griffin Joshi MD Unavailable Roopa Almonte MD Unavailable [phone] [facility] medical centerBasilio win DO Unavailable Lydia Bernstein PA-C Unavailable Rosa Maria Love Unavailable [phone] Augustine Callaway MD Unavailable Paula Reza MD Unavailable Keerthi Miner APRN ACTIVITY THERAPY SPECIALIST Unavailable Herman, Shahida Cummings APRN ACTIVITY THERAPY SPECIALIST Unavailable Un available Porsha Michaels APRN ACTIVITY THERAPY SPECIALIST Unavailable [phone] Paula Reza MD Unavailable Herman, Shahida Cummings APRN ACTIVITY THERAPY SPECIALIST Unavailable Un available Daylin Ludwig Unavailable [phone] Laurel Velasquez MD Unavailable [phone] Daylin Ludwig Unavailable [phone] Paula Reza MD Unavailable Porsha Michaels APRN ACTIVITY THERAPY SPECIALIST Unavailable [phone] Laurel Velasquez MD Unavailable [phone] Herman, Shahida Cummings APRN ACTIVITY THERAPY SPECIALIST Unavailable Un available Marilin Montaño ACTIVITY THERAPY SPECIALIST Unavailable [phone] Esha Dewitt MD Unavailable [phone] Heather Mosquera MD Unavailable Paula Reza MD Unavailable Esha Dewitt MD Unavailable [phone] Valdo Escamilla PA-C Unavailable Nohelia Abarca PA-C Unavailable [phone] Heather Mosquera MD Unavailable Fawad York MD Unavailable Encounter Details Date Type Department Care Team (Late st Contact Info) Description 07/03/2011 [facility] Medical Advice [address] [address] Mingo Aldana MD [facility] [address] [place] [address] Social History Tobacco Use Types [...] Out COVID-19 02/15/2020 02/15/2020 02/16/2020 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 Rule Out COVID-19 01/05/2021 01/05/2021 01/06/2021 12:57 PM CDT ESBL 01/05/2021 01/05/2021 Rule Out COVID-19 06/30/2021 06/30/2021 07/01/2021 9:34 AM CDT Rule Out COVID-19 07/25/2021 07/25/2021 07/25/2021 8:02 PM CDT documented as of this encounter Care Teams Plate Straightener Relationship Specialty Start Date End Date Mingo Aldana MD PCP - General Family Practice 07/22/09 07/12/14 Shahida Sutton APRN ACTIVITY THERAPY SPECIALIST PCP - General Nurse Practitioner 08/17/14 08/04/21 Shahida Sutton APRN ACTIVITY THERAPY SPECIALIST PCP - Assigned PCP 07/12/14 05/07/18 Paula Reza MD [address] [place] [address] PCP - General Internal Medicine 08/05/21 Shahida Sutton APRN ACTIVITY THERAPY SPECIALIST Assigned PCP 07/12/14 09/30/21 Carolynn Ramon, KASIE Personal Advocate & Liaison (PAL) 12/17/18 08/07/21 [place] [address] [place] [address] Assigned Musculoskeletal Provider 12/26/19 08/21/20 Brady Lion MD Assigned Heart and Vascular Provider 12/26/19 08/14/20 Nima France PA-C [address] [place] [address] Assigned Surgical Provider 05/19/20 08/21/20 Camille Chandler PA-C [address] [place] [address] Assigned Neuroscience Provider 05/19/20 09/14/20 Anabela Barakat APRN CNP [address] [place] [address] Assigned Heart and Vascular Provider 08/15/20 08/05/21 Nima France PA-C 6545 [facility] 450 [place] [address] Assigned Musculoskeletal Provider 08/22/20 11/13/20 [place] [address] [place], [place] [address] Assigned Musculoskeletal Provider 11/14/20 12/04/20 Fawad York MD [address] [place], [place] [address] Assigned Musculoskeletal Provider 12/05/20 02/05/21 Roopa Almonte MD [address] [facility] 200 [place] [address] Endocrinology, Diabetes, and Metabolism 01/19/21 [place] [address] [facility] 300 [place] [address] Assigned Musculoskeletal Provider 02/06/21 09/16/21 Maryse Burton PA-C [address] [place] [address] Physician Ice House Supervisor Dermatology 04/14/21 Marquita Starkey MD [address] [place] [address] Internal Medicine 05/06/21 05/06/21 Roopa Almonte MD [address] [facility] [address] [place] [address] Hospitalist Endocrinology, Diabetes, and Metabolism 05/30/21 Griffin Joshi MD [address] [place] [address] Cardiovascular Disease 07/25/21 Rina Magallon, RN Lead Account Auditor 07/29/21 07/11/22 Griffin Joshi MD [address] [place] [id number] Assigned Heart and Vascular Provider 08/06/21 10/07/21 Roopa Almonte MD [address] [place] [address] 200 [place], [place] [address] Assigned Endocrinology Provider 09/10/21 [place] [address] [facility] [place] [address] Assigned Musculoskeletal Provider 09/17/21 10/14/21 Ldyia Bernstein PA-C [address] [place] [address] Assigned PCP 10/01/21 10/21/21 Rosa Maria Love CHW Community Health Worker 10/06/21 [place] [address] [place] [address] Assigned Musculoskeletal Provider 10/15/21 04/26/23 Paula Reza MD [address] [place] [address] Assigned PCP 10/22/21 12/23/21 Keerthi Miner APRN ACTIVITY THERAPY SPECIALIST [address] [place] [address] Assigned Heart and Vascular Provider 10/08/21 02/10/22 Shahida Sutton APRN ACTIVITY THERAPY SPECIALIST Assigned PCP 12/24/21 03/24/22 Porsha Michaels APRN ACTIVITY THERAPY SPECIALIST [address] [place] [address] Assigned Heart and Vascular Provider 02/11/22 05/12/22 Paula Reza MD [address] [place] [address] Assigned PCP 03/25/22 04/07/22 Shahida Sutton APRN ACTIVITY THERAPY SPECIALIST [address] [place] [address] Assigned PCP 04/08/22 06/30/22 Daylin Ludwig EP [facility] [address] [place] [address] Cardiac Rehabilitation Therapist 05/16/23 Laurel Velasquez MD [address] [place] [address] Assigned Heart and Vascular Provider 05/13/22 06/30/22 Daylin Ludwig EP [facility] [address] [place] [address] Cardiac Rehabilitation Therapist 06/08/22 06/09/23 Paula Reza MD [address] [facility] [address] [place], [place] [address] Assigned PCP 07/01/22 07/07/22 Porsha Michaels APRN ACTIVITY THERAPY SPECIALIST [address] [place] [address] Assigned Heart and Vascular Provider 07/01/22 07/07/22 Laurel Velasquez MD [address] [place], [place] [address] Assigned Heart and Vascular Provider 07/08/22 08/04/22 Shahida Sutton APRN ACTIVITY THERAPY SPECIALIST Assigned PCP 07/08/22 09/08/22 Marilin Montaño, ACTIVITY THERAPY SPECIALIST [address] [place] [address] Assigned Heart and Vascular Provider 08/05/22 Esha [place] MD [address] [place] [address] 36 [place], [place] [address] Gastroenterology 09/06/22 Heather Mosquera MD [address] [place] [address] Internal Medicine 09/06/22 Paula Reza MD [address] [facility] 200 [place] [address] Assigned PCP 09/09/22 01/05/23 Esha [place] MD [address] [facility] 36 [place], [place] [address] Assigned Gastroenterology Provider 09/23/22 Valdo Escamilla PA-C [address] [place] [address] Assigned Neuroscience Provider 09/30/22 Nohelia Abarca PA-C 2450 [place] [address] Physician Ice House Supervisor Gastroenterology 10/03/22 Heather Mosquera MD 6545 [facility] [address] [facility] 150 [place], [place] [address] Assigned PCP 01/06/23 Fawad York MD [address] [place], [place] [address] Assigned Musculoskeletal Provider 04/27/23 06/25/23 documented as of this encounter
--- OUTSIDE RECORDS SUMMARY | 2023-09-21 08:37 | XMS_ITS | Encounter Summary ---
Author Organization [facility] Address [address] [place] [address] Care Team Providers Care Briar Wood Sorter Name Role Phone Mingo Aldana MD Primary Car e Provider Herman, Shahida Cummings APRN SALES ATTENDANT Primary Care Provi ford Unavailable Herman, Shahida Cummings APRN SALES ATTENDANT Unavailable Un available Herman, Shahida Cummings APRN SALES ATTENDANT Unavailable Un available Carolynn Ramon RN Unavailable [phone] Augustine Callaway MD Unavailable Brady Lion MD Unavailable Un available Nima France-C Unavailable [phone] Camille Chandler PA-C Unavailable [phone] Anabela Barakat APRN SALES ATTENDANT Unavailable Nima France-C Unavailable [phone] Basilio Morillo DO Unavailable Fawad York MD Unavailable [phone] Roopa Almonte MD Unavailable [phone] Augustine Callaway MD Unavailable Maryse Burton PA-C Unavailable Marquita Starkey MD Unavailable [phone] Roopa Almonte MD Unavailable [phone] Griffin Joshi MD Unavailable Rina Magallon RN Unavailable [phone] Paula Reza MD Primary Care Provider [phone] Griffin Joshi MD Unavailable Roopa Almonte MD Unavailable [phone] [facility] unitBasilio win DO Unavailable Lydia Bernstein PA-C Unavailable Rosa Maria Love Unavailable [phone] Augustine Callaway MD Unavailable Paula Reza MD Unavailable Keerthi Miner APRN SALES ATTENDANT Unavailable Herman, Shahida Cummings APRN SALES ATTENDANT Unavailable Un available Porsha Michaels APRN SALES ATTENDANT Unavailable [phone] Paula Reza MD Unavailable Herman, Shahida Cummings APRN SALES ATTENDANT Unavailable Un available Daylin Ludwig Unavailable [phone] Laurel Velasquez MD Unavailable [phone] Daylin Ludwig Unavailable [phone] Paula Reza MD Unavailable Porsha Michaels APRN SALES ATTENDANT Unavailable [phone] Laurel Velasquez MD Unavailable [phone] Herman, Shahida Cummings APRN SALES ATTENDANT Unavailable Un available Marilin Montaño SALES ATTENDANT Unavailable [phone] Esha Dewitt MD Unavailable [phone] Heather Mosquera MD Unavailable Paula Reza MD Unavailable Esha Dewitt MD Unavailable [phone] Valdo Escamilla Deo PA-C Unavailable [phone] Nohelia Abarca PA-C Unavailable [phone] Heather Mosquera MD Unavailable [phone] Fawad York MD Unavailable [phone] Reason for Visit * Reason Onset Date Comments Pt. Information/instruction 07/05/2012 MRI Encounter Details Date Type Department Care Team (Late st Contact Info) Description 07/05/[address] [facility] [address], [address] [place] [address] Mingo Aldana MD [facility] [address] [place], [place] [address] Pt. Information/instruc tion (MRI) Social History Tobacco [...] imaging for his shoulder? 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 Rule Out COVID-19 01/05/2021 01/05/2021 01/06/2021 12:57 PM CDT ESBL 01/05/2021 01/05/2021 Rule Out COVID-19 06/30/2021 06/30/2021 07/01/2021 9:34 AM CDT Rule Out COVID-19 07/25/2021 07/25/2021 07/25/2021 8:02 PM CDT documented as of this encounter Care Teams Briar Wood Sorter Relationship Specialty Start Date End Date Mingo Aldana MD PCP - General Family Practice 07/22/09 07/12/14 Shahida Sutton APRN SALES ATTENDANT PCP - General Nurse Practitioner 08/17/14 08/04/21 Shahida Sutton APRN SALES ATTENDANT PCP - Assigned PCP 07/12/14 05/07/18 Paula Reza MD [address] [address] PCP - General Internal Medicine 08/05/21 Shahida Sutton APRN SALES ATTENDANT Assigned PCP 07/12/14 09/30/21 Carolynn Ramon RN Personal Advocate & Liaison (PAL) 12/17/18 08/07/21 [place] [address] [place] [address] Assigned Musculoskeletal Provider 12/26/19 08/21/20 Brady Lion MD Assigned Heart and Vascular Provider 12/26/19 08/14/20 Nima France PA-C 6545 [facility] S [facility] [address] [place] [address] Assigned Surgical Provider 05/19/20 08/21/20 Camille Chandler PA-C [address] [facility] [place] [address] [place] [address] Assigned Neuroscience Provider 05/19/20 09/14/20 Anabela Barakat APRN SALES ATTENDANT [address] [place] [address] Assigned Heart and Vascular Provider 08/15/20 08/05/21 Nima France PA-C [address] [place] [address] [place] [address] Assigned Musculoskeletal Provider 08/22/20 11/13/20 [place] [address] [facility] [place] [address] Assigned Musculoskeletal Provider 11/14/20 12/04/20 Fawad York MD 9 [place] [address] Assigned Musculoskeletal Provider 12/05/20 02/05/21 Roopa Almonte MD [address] [facility] 200 [place] [address] Endocrinology, Diabetes, and Metabolism 01/19/21 [place] [address] [facility] 300 [place] [address] Assigned Musculoskeletal Provider 02/06/21 09/16/21 Maryse Burton PA-C 5[address] [place] [address] Physician Assurance Specialist Dermatology 04/14/21 Marquita Starkey MD [address] [facility] 200 [place] [address] Internal Medicine 05/06/21 05/06/21 Roopa Almonte MD [address] [facility] 200 [place] [address] Hospitalist Endocrinology, Diabetes, and Metabolism 05/30/21 Griffin Joshi MD [address] [place] [address] Cardiovascular Disease 07/25/21 Rina Magallon, RN Lead Scheduling Representative 07/29/21 07/11/22 Griffin Joshi MD [address] [place] [address] Assigned Heart and Vascular Provider 08/06/21 10/07/21 Roopa Almonte MD [address] [facility] [facility] 200 [place] [address] Assigned Endocrinology Provider 09/10/21 [place] [address] [facility] [place] [place] [address] Assigned Musculoskeletal Provider 09/17/21 10/14/21 Lydia Bernstein PA-C [address] [place] [address] Assigned PCP 10/01/21 10/21/21 Rosa Maria Love Cristina Community Health Worker 10/06/21 [place] [address] [facility] 300 [place] [address] Assigned Musculoskeletal Provider 10/15/21 04/26/23 Paula Reza MD [address] [facility] 200 [place] [address] Assigned PCP 10/22/21 12/23/21 Keerthi Miner APRN SALES ATTENDANT [address] [place] [address] Assigned Heart and Vascular Provider 10/08/21 02/10/22 Shahida Sutton APRN SALES ATTENDANT Assigned PCP 12/24/21 03/24/22 Porsha Michaels APRN SALES ATTENDANT [address] [place] [address] Assigned Heart and Vascular Provider 02/11/22 05/12/22 Paula Reza MD [address] [place] [address] Assigned PCP 03/25/22 04/07/22 Shahida Sutton APRN SALES ATTENDANT [address] [place] [address] Assigned PCP 04/08/22 06/30/22 Daylin Ludwig, [facility] [address] [place] [address] Cardiac Rehabilitation Therapist 05/16/23 Laurel Velasquez MD [address] [place] [address] Assigned Heart and Vascular Provider 05/13/22 06/30/22 Daylin Ludwig, EP [facility] [address] [address] Cardiac Rehabilitation Therapist 06/08/22 06/09/23 Paula Reza MD [address] [place] [address] Assigned PCP 07/01/22 07/07/22 Porsha Michaels APRN SALES ATTENDANT [address] [place] [address] Assigned Heart and Vascular Provider 07/01/22 07/07/22 Laurel Velasquez MD [address] [address] Assigned Heart and Vascular Provider 07/08/22 08/04/22 Shahida Sutton APRN SALES ATTENDANT Assigned PCP 07/08/22 09/08/22 Marilin Montaño, SALES ATTENDANT [address] [place] [address] Assigned Heart and Vascular Provider 08/05/22 Esha Dewitt MD [address] [facility] 36 [place], [place] [address] MD Gastroenterology 09/06/22 Heather Mosquera MD [address] [facility] [address] 150 [facility] [place] [address] MD Internal Medicine 09/06/22 Paula Reza MD [address] [facility] 200 [place], [place] [address] Assigned PCP 09/09/22 01/05/23 Esha Dewitt MD 420 [facility] 36 [place], [place] [address] Assigned Gastroenterology Provider 09/23/22 Valdo Escamilla PA-C [address] [place] [address] Assigned Neuroscience Provider 09/30/22 Noheila Abarca PA-C [address] [place] [address] Physician Assurance Specialist Gastroenterology 10/03/22 Heather Mosquera MD [address] [facility] 150 [place] [address] Assigned PCP 01/06/23 Fawad York MD 909 [place] [address] Assigned Musculoskeletal Provider 04/27/23 06/25/23 documented as of this encounter
--- OUTSIDE RECORDS SUMMARY | 2023-09-21 08:37 | XMS_ITS | Encounter Summary ---
Author Organization [place] Address [address] [place] [address] Care Team Providers Care Scientific Advisor Name Role Phone Mingo Aldana MD Primary Car e Provider Herman, Shahida Cummings APRN WASTE WATER TREATMENT PLANT OPERATOR Primary Care Provi ford Unavailable Herman, Shahida Cummings APRN WASTE WATER TREATMENT PLANT OPERATOR Unavailable Un available Herman, Shahida Cummings APRN WASTE WATER TREATMENT PLANT OPERATOR Unavailable Un available Carolynn Ramon RN Unavailable [phone] Augustine Callaway MD Unavailable Brady Lion MD Unavailable Un available Nima France-C Unavailable [phone] Camille Chandler PA-C Unavailable [phone] Anabela Barakat APRN WASTE WATER TREATMENT PLANT OPERATOR Unavailable Nima France-C Unavailable [phone] Basilio Morillo DO Unavailable [phone] Fawad York MD Unavailable [phone] Roopa Almonte MD Unavailable [phone] Augustine Callaway MD Unavailable Maryse Burton PA-C Unavailable Marquita Starkey MD Unavailable [phone] Roopa Almonte MD Unavailable [phone] Griffin Joshi MD Unavailable Rina Magallon RN Unavailable [phone] Paula Reza MD Primary Care Provider [phone] Griffin Joshi MD Unavailable Roopa Almonte MD Unavailable [phone] [facility] island[facility] win DO Unavailable Lydia Bernstein PA-C Unavailable Rosa Maria Love Unavailable [phone] Augustine Callaway MD Unavailable Paula Reza MD Unavailable Keerthi Miner APRN WASTE WATER TREATMENT PLANT OPERATOR Unavailable Herman, Shahida Cummings APRN WASTE WATER TREATMENT PLANT OPERATOR Unavailable Un available Porsha Michaels APRN WASTE WATER TREATMENT PLANT OPERATOR Unavailable [phone] aPula Reza MD Unavailable Herman, Shahida Cummings APRN WASTE WATER TREATMENT PLANT OPERATOR Unavailable Un available Daylin Lduwig Unavailable [phone] Laurel Velasquez MD Unavailable [phone] Daylin Ludwig Unavailable [phone] Paula Reza MD Unavailable Porsha Michaels APRN WASTE WATER TREATMENT PLANT OPERATOR Unavailable [phone] Laurel Velasquez MD Unavailable [phone] Herman, Shahida Cummings APRN WASTE WATER TREATMENT PLANT OPERATOR Unavailable Un available Marilin Montaño WASTE WATER TREATMENT PLANT OPERATOR Unavailable [phone] Esha Dewitt MD Unavailable [phone] Heather Mosquera MD Unavailable Paula Reza MD Unavailable Esha Dewitt MD Unavailable [phone] Valdo Escamilla PA-C Unavailable Nohelia Abarca PA-C Unavailable [phone] Heather Mosquera MD Unavailable Fawad York MD Unavailable [phone] Encounter Details Date Type Department Care Team (Late st Contact Info) Description 09/05/[address] [address] Maximiliano Herrmann Social History Tobacco [...] Out COVID-19 02/15/2020 02/15/2020 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/2020 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 Rule Out COVID-19 01/05/2021 01/05/2021 01/06/2021 12:57 PM CDT ESBL 01/05/2021 01/05/2021 Rule Out COVID-19 06/30/2021 06/30/2021 07/01/2021 9:34 AM CDT Rule Out COVID-19 07/25/2021 07/25/2021 07/25/2021 8:02 PM CDT documented as of this encounter Care Teams Scientific Advisor Relationship Specialty Start Date End Date Mingo Aldana MD PCP - General Family Practice 07/22/09 07/12/14 Shahida Sutton APRN WASTE WATER TREATMENT PLANT OPERATOR PCP - General Nurse Practitioner 08/17/14 08/04/21 Shahida Sutton APRN WASTE WATER TREATMENT PLANT OPERATOR PCP - Assigned PCP 07/12/14 05/07/18 Paula Reza MD [address] [facility] [address] [place] [address] PCP - General Internal Medicine 08/05/21 Shahida Sutton APRN WASTE WATER TREATMENT PLANT OPERATOR Assigned PCP 07/12/14 09/30/21 Carolynn Ramon RN Personal Advocate & Liaison (PAL) 12/17/18 08/07/21 [place] [address] [place] [address] Assigned Musculoskeletal Provider 12/26/19 08/21/20 Brady Lion MD Assigned Heart and Vascular Provider 12/26/19 08/14/20 Nima France PA-C [address] [place] [address] Assigned Surgical Provider 05/19/20 08/21/20 Camille Chandler PA-C [address] [place] [address] Assigned Neuroscience Provider 05/19/20 09/14/20 Anabela Barakat APRN CNP [address] [place] [address] Assigned Heart and Vascular Provider 08/15/20 08/05/21 Nima France PA-C [address] [facility] [address] [place] [address] Assigned Musculoskeletal Provider 08/22/20 11/13/20 [place] [address] [facility] [place], [place] [address] Assigned Musculoskeletal Provider 11/14/20 12/04/20 Fawad York MD [address] [place], [place] [address] Assigned Musculoskeletal Provider 12/05/20 02/05/21 Roopa Almonte MD [address] [facility] [address] [place], [place] [address] Endocrinology, Diabetes, and Metabolism 01/19/21 [place] [address] [facility] [address] [place] [address] Assigned Musculoskeletal Provider 02/06/21 09/16/21 Maryse Burton PA-C [address] [place] [address] Physician Pile Trimmer Dermatology 04/14/21 Marquita Starkey MD [address] [facility] [address] [place], [place] [address] Internal Medicine 05/06/21 05/06/21 Roopa Almonte MD [address] [facility] 200 [place] [address] Hospitalist Endocrinology, Diabetes, and Metabolism 05/30/21 Griffin Joshi MD [address] [place] [address] Cardiovascular Disease 07/25/21 Rina Magallon, RN Lead Client Care Specialist 07/29/21 07/11/22 Griffin Joshi MD [address] [facility] [address] [place] [address] Assigned Heart and Vascular Provider 08/06/21 10/07/21 Roopa Almonte MD [address] [facility] [address] [place] [address] Assigned Endocrinology Provider 09/10/21 [place] [address] [facility] [place] [address] Assigned Musculoskeletal Provider 09/17/21 10/14/21 Lydia Bernstein PA-C [address] [place] [address] Assigned PCP 10/01/21 10/21/21 Rosa Maria Love CHW Community Health Worker 10/06/21 [place] [address] [facility] [address] [place] [address] Assigned Musculoskeletal Provider 10/15/21 04/26/23 Paula Reza MD [address] [place] [address] Assigned PCP 10/22/21 12/23/21 Keerthi Miner APRN WASTE WATER TREATMENT PLANT OPERATOR [address] [place] [address] Assigned Heart and Vascular Provider 10/08/21 02/10/22 Shahida Sutton APRN WASTE WATER TREATMENT PLANT OPERATOR Assigned PCP 12/24/21 03/24/22 Porsha Michaels APRN WASTE WATER TREATMENT PLANT OPERATOR [address] [place] [address] Assigned Heart and Vascular Provider 02/11/22 05/12/22 Paula Reza MD [address] [place] [address] Assigned PCP 03/25/22 04/07/22 Shahida Sutton APRN WASTE WATER TREATMENT PLANT OPERATOR [address] [place] [address] Assigned PCP 04/08/22 06/30/22 Daylin Ludwig EP [facility] [address] [place] [address] Cardiac Rehabilitation Therapist 05/16/23 Laurel Velasquez MD [address] [place] [address] Assigned Heart and Vascular Provider 05/13/22 06/30/22 Daylin Ludwig EP [facility] [address] [place], [place] [address] Cardiac Rehabilitation Therapist 06/08/22 06/09/23 Paula Reza MD [address] [place], [place] [address] Assigned PCP 07/01/22 07/07/22 Porsha Michaels APRN WASTE WATER TREATMENT PLANT OPERATOR [address] [place] [address] Assigned Heart and Vascular Provider 07/01/22 07/07/22 Laurel Velasquez MD [address] [place] [address] Assigned Heart and Vascular Provider 07/08/22 08/04/22 Shahida Sutton APRN WASTE WATER TREATMENT PLANT OPERATOR Assigned PCP 07/08/22 09/08/22 Marilin Montaño, WASTE WATER TREATMENT PLANT OPERATOR [address] [place] [address] Assigned Heart and Vascular Provider 08/05/22 Esha Dewitt MD [address] [place] [address] 36 [place] [address] Gastroenterology 09/06/22 Heather Mosquera MD [address] [place] [address] Internal Medicine 09/06/22 Paula Reza MD [address] [place] [address] Assigned PCP 09/09/22 01/05/23 Esha Dewitt MD [address] [facility] 36 [place] [address] Assigned Gastroenterology Provider 09/23/22 Valdo Escamilla PA-C [address] [facility] [address] [place] [address] Assigned Neuroscience Provider 09/30/22 oNhelia Abarca PA-C [address] [place] [address] Physician Pile Trimmer Gastroenterology 10/03/22 Heather Mosquera MD 6545 [facility] 150 [place] [address] Assigned PCP 01/06/23 Fawad York MD [address] [place] [address] Assigned Musculoskeletal Provider 04/27/23 06/25/23 documented as of this encounter
--- OUTSIDE RECORDS SUMMARY | 2023-09-21 08:37 | XMS_ITS | Encounter Summary ---
Author Organization [facility] Address [address] [place] [address] Care Team Providers Care Demand Inspector Name Role Phone Mingo Aldana MD Primary Car e Provider Herman, Shahida Cummings APRN CASING PULLER Primary Care Provi ford Unavailable Herman, Shahida Cummings APRN CASING PULLER Unavailable Un available Herman, Shahida Cummings APRN CASING PULLER Unavailable Un available Carolynn Ramon RN Unavailable [phone] Augustine Callaway MD Unavailable Brady Lion MD Unavailable Un available Nima France-C Unavailable [phone] Camille Chandler PA-C Unavailable [phone] Anabela Barakat APRN CASING PULLER Unavailable Nima France-C Unavailable [phone] Basilio Morillo DO Unavailable Fawad York MD Unavailable [phone] Roopa Almonte MD Unavailable [phone] Augustine Callaway MD Unavailable Maryse Burton PA-C Unavailable Marquita Starkey MD Unavailable [phone] Roopa Almonte MD Unavailable [phone] Griffin Joshi MD Unavailable Rina Magallon RN Unavailable [phone] Paula Reza MD Primary Care Provider [phone] Griffin Joshi MD Unavailable Roopa Almonte MD Unavailable [phone] [facility] win DO Unavailable Lydia Bernstein PA-C Unavailable Rosa Maria Love Unavailable [phone] Augustine Callaway MD Unavailable Paula Reza MD Unavailable Keerthi Miner APRN CASING PULLER Unavailable Herman, Shahida Cummings APRN CASING PULLER Unavailable Un available Porsha Michaels APRN CASING PULLER Unavailable [phone] Paula Reza MD Unavailable Herman, Shahida Cummings APRN CASING PULLER Unavailable Un available Daylin Ludwig Unavailable [phone] Laurel Velasquez MD Unavailable [phone] Daylin Ludwig Unavailable [phone] Paula Reza MD Unavailable Porsha Michaels APRN CASING PULLER Unavailable [phone] Laurel Velasquez MD Unavailable [phone] Herman, Shahida Cummings APRN CASING PULLER Unavailable Un available Marilin Montaño CASING PULLER Unavailable [phone] Esha Dewitt MD Unavailable [phone] Heather Mosquera MD Unavailable [phone] Paula Reza MD Unavailable Esha Dewitt MD Unavailable [phone] AyseValdo cabrera Deo PA-C Unavailable Nohelia Abarca PA-C Unavailable [phone] Heather Msoquera MD Unavailable Fawad York MD Unavailable [phone] Reason for Visit * Reason Onset Date Comments MyChart Communication 04/17/[address] ress test Encounter Details Date Type Department Care Team (Late st Contact Info) Description 04/17/2012 MyC Medical Advice [address], [address] [place] [address] Mingo Aldana MD [facility] [address] [place] [address] MyChart Communication (nuclear stress test) Social History [...] Out COVID-19 02/15/2020 02/15/2020 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/2020 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 Rule Out COVID-19 01/05/2021 01/05/2021 01/06/2021 12:57 PM CDT ESBL 01/05/2021 01/05/2021 Rule Out COVID-19 06/30/2021 06/30/2021 07/01/2021 9:34 AM CDT Rule Out COVID-19 07/25/2021 07/25/2021 07/25/2021 8:02 PM CDT documented as of this encounter Care Teams Demand Inspector Relationship Specialty Start Date End Date Katya Jasonyaneth Bimal Celestin MD PCP - General Family Practice 07/22/09 07/12/14 Shahida Sutton APRN CASING PULLER PCP - General Nurse Practitioner 08/17/14 08/04/21 Shahida Sutton APRN CASING PULLER PCP - Assigned PCP 07/12/14 05/07/18 Paula Reza MD [address] [facility] [address] [place], [place] [address] PCP - General Internal Medicine 08/05/21 Shahida Sutton APRN CASING PULLER Assigned PCP 07/12/14 09/30/21 Carolynn Ramon, KASIE Personal Advocate & Liaison (PAL) 12/17/18 08/07/21 [place] [address] [place] [address] Assigned Musculoskeletal Provider 12/26/19 08/21/20 Brady Lion MD Assigned Heart and Vascular Provider 12/26/19 08/14/20 Nima France PA-C [address] [place] [address] Assigned Surgical Provider 05/19/20 08/21/20 Camille Chandler PA-C [address] [facility] [address] [place], [place] [address] Assigned Neuroscience Provider 05/19/20 09/14/20 Anabela Barakat APRN CASING PULLER [address] [place] [address] Assigned Heart and Vascular Provider 08/15/20 08/05/21 Nima France PA-C [address] [facility] [address] [place] [address] Assigned Musculoskeletal Provider 08/22/20 11/13/20 [place] [address] [place] [address] Assigned Musculoskeletal Provider 11/14/20 12/04/20 Fawad York MD [address] [place] [address] Assigned Musculoskeletal Provider 12/05/20 02/05/21 Roopa Almonte MD [address] [facility] 200 [place] [address] Endocrinology, Diabetes, and Metabolism 01/19/21 [place] [address] [facility] [address] [place], [place] [address] Assigned Musculoskeletal Provider 02/06/21 09/16/21 Maryse Burton PA-C [address] [place] [address] Physician Clinician Oncology Dermatology 04/14/21 Marquita Starkey MD [address] [place] [address] Internal Medicine 05/06/21 05/06/21 Roopa Almonte MD [address] [facility] [address] [place] [address] Hospitalist Endocrinology, Diabetes, and Metabolism 05/30/21 Griffin Joshi MD [address] [place] [address] Cardiovascular Disease 07/25/21 Rina Magallon RN Lead Brush Clearing Laborer 07/29/21 07/11/22 Griffin Joshi MD [address] [place] [address] Assigned Heart and Vascular Provider 08/06/21 10/07/21 Roopa Almonte MD [address] [place], [place] [address] Assigned Endocrinology Provider 09/10/21 [place] [address] [facility] [place] [address] Assigned Musculoskeletal Provider 09/17/21 10/14/21 Lydia Bernstein PA-C [address] [place] [address] Assigned PCP 10/01/21 10/21/21 Kate Rosa Maria, W Community Health Worker 10/06/21 [place] [address] [place] [address] Assigned Musculoskeletal Provider 10/15/21 04/26/23 Paula Reza MD [address] [place] [address] Assigned PCP 10/22/21 12/23/21 Keerthi Miner APRN CASING PULLER [address] [place] [address] Assigned Heart and Vascular Provider 10/08/21 02/10/22 Shahida Sutton APRN CASING PULLER Assigned PCP 12/24/21 03/24/22 Porsha Michaels APRN CASING PULLER [address] [address] Assigned Heart and Vascular Provider 02/11/22 05/12/22 Paula Reza MD [address] [place] [address] Assigned PCP 03/25/22 04/07/22 Shahida Sutton APRN CASING PULLER [address] [address] Assigned PCP 04/08/22 06/30/22 Daylin Ludwig EP [facility] [address] [place] [address] Cardiac Rehabilitation Therapist 05/16/23 Laurel Velasquez MD [address] [place] [address] Assigned Heart and Vascular Provider 05/13/22 06/30/22 Daylin Ludwig EP [facility] [address] [place] [address] Cardiac Rehabilitation Therapist 06/08/22 06/09/23 Paula Reza MD [address] [facility] [address] [place], [place] [address] Assigned PCP 07/01/22 07/07/22 Porsha Michaels APRN CASING PULLER [address] [place] [address] Assigned Heart and Vascular Provider 07/01/22 07/07/22 Laurel Velasquez MD [address] [place] [address] Assigned Heart and Vascular Provider 07/08/22 08/04/22 Shahida Sutton, GROUNDSKEEPER SUPERVISOR CASING PULLER Assigned PCP 07/08/22 09/08/22 Marilin Montaño, CASING PULLER [address] [place] [address] Assigned Heart and Vascular Provider 08/05/22 Esha Dewitt MD 420 [facility] 36 [place], [place] [address] Gastroenterology 09/06/22 Heather Mosquera MD [address] [place] [address] Internal Medicine 09/06/22 Paula Reza MD [address] [facility] [address] [place] [address] Assigned PCP 09/09/22 01/05/23 Esha Dewitt MD 420 [facility] 36 [place], [place] [address] Assigned Gastroenterology Provider 09/23/22 Valdo Escamilla PA-C [address] [facility] [address] [place] [id number] Assigned Neuroscience Provider 09/30/22 Nohelia Abarca PA-C [address] [place], [place] [address] Physician Clinician Oncology Gastroenterology 10/03/22 Heather Mosquera MD [address] [place] [address] Assigned PCP 01/06/23 Fawad York MD [address] [place], [place] [address] Assigned Musculoskeletal Provider 04/27/23 06/25/23 documented as of this encounter
--- OUTSIDE RECORDS SUMMARY | 2023-09-21 08:37 | XMS_ITS | Encounter Summary ---
Author Organization [facility] Address [address] [place] [address] Care Team Providers Care Windows Server Support Technician Name Role Phone Mingo Aldana MD Primary Car e Provider Herman, Shahida Cummings APRN SCOUTS Primary Care Provi ford Unavailable Hemran, Shahida Cummings APRN SCOUTS Unavailable Un available Herman, Shahida Cummings APRN SCOUTS Unavailable Un available Carolynn Ramon RN Unavailable [phone] Augustine Callaway MD Unavailable Brady Lion MD Unavailable Un available Nima France-C Unavailable [phone] Camille Chandler PA-C Unavailable [phone] Anabela Barakat APRN SCOUTS Unavailable Nima France-C Unavailable [phone] Basilio Morillo DO Unavailable Fawad York MD Unavailable [phone] Roopa Almonte MD Unavailable [phone] Augustine Callaway MD Unavailable Maryse Burton PA-C Unavailable Marquita Starkey MD Unavailable [phone] Roopa Almonte MD Unavailable [phone] Griffin Joshi MD Unavailable Rina Magallon RN Unavailable [phone] Paula Reza MD Primary Care Provider [phone] Griffin Joshi MD Unavailable Roopa Almonte MD Unavailable [phone] [facility] medical centerBasilio win DO Unavailable Lydia Bernstein PA-C Unavailable Rosa Maria Love Unavailable [phone] Augustine Callaway MD Unavailable Paula Reza MD Unavailable Keerthi Miner APRN SCOUTS Unavailable Herman, Shahida Cummings APRN SCOUTS Unavailable Un available Porsha Michaels APRN SCOUTS Unavailable [phone] Paula Reza MD Unavailable Herman, Shahida Cummings APRN SCOUTS Unavailable Un available Daylin Ludwig Unavailable [phone] Laurel Velasquez MD Unavailable [phone] Daylin Ludwig Unavailable [phone] Paula Reza MD Unavailable Porsha Michaels APRN SCOUTS Unavailable [phone] Laurel Velasquez MD Unavailable [phone] Herman, Shahida Cummings APRN SCOUTS Unavailable Un available Marilin Montaño SCOUTS Unavailable [phone] Esha Dewitt MD Unavailable [phone] Heather Mosquera MD Unavailable [phone] Paula Reza MD Unavailable Esha Dewitt MD Unavailable [phone] Valdo Escamilla PA-C Unavailable Nohelia Abarca PA-C Unavailable [phone] Heather Mosquera MD Unavailable [phone] Fawad York MD Unavailable [phone] Encounter Details Date Type Department Care Team (Late st Contact Info) Description 05/28/[address], [facility] [address] [place] [address] [place] Social History Tobacco [...] Out COVID-19 02/15/2020 02/15/2020 02/16/2020 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 Rule Out COVID-19 01/05/2021 01/05/2021 01/06/2021 12:57 PM CDT ESBL 01/05/2021 01/05/2021 Rule Out COVID-19 06/30/2021 06/30/2021 07/01/2021 9:34 AM CDT Rule Out COVID-19 07/25/2021 07/25/2021 07/25/2021 8:02 PM CDT documented as of this encounter Care Teams Windows Server Support Technician Relationship Specialty Start Date End Date Mingo Aldana MD PCP - General Family Practice 07/22/09 07/12/14 Shahida Sutton APRN SCOUTS PCP - General Nurse Practitioner 08/17/14 08/04/21 Shahida Sutton APRN SCOUTS PCP - Assigned PCP 07/12/14 05/07/18 Paula Reza MD [address] [facility] [address] [place], [place] [address] PCP - General Internal Medicine 08/05/21 Shahida Sutton APRN SCOUTS Assigned PCP 07/12/14 09/30/21 Carolynn Ramon RN Personal Advocate & Liaison (PAL) 12/17/18 08/07/21 [place] [address] [place], [place] [address] Assigned Musculoskeletal Provider 12/26/19 08/21/20 Brady Lion MD Assigned Heart and Vascular Provider 12/26/19 08/14/20 Nima France PA-C [address] [place] [address] Assigned Surgical Provider 05/19/20 08/21/20 Camille Chandler PA-C [address] [place] [address] Assigned Neuroscience Provider 05/19/20 09/14/20 Anabela Barakat APRN CNP [address] [place] [address] Assigned Heart and Vascular Provider 08/15/20 08/05/21 Nima France PA-C 6545 [facility] [address] [place] [address] Assigned Musculoskeletal Provider 08/22/20 11/13/20 [place] [address] [place], [place] [address] Assigned Musculoskeletal Provider 11/14/20 12/04/20 Fawad York MD [address] [place], [place] [address] Assigned Musculoskeletal Provider 12/05/20 02/05/21 Roopa Almonte MD [address] [facility] [address] [place], [place] [address] Endocrinology, Diabetes, and Metabolism 01/19/21 [place] [address] [facility] [address] [place] [address] Assigned Musculoskeletal Provider 02/06/21 09/16/21 Maryse Burton PA-C [address] [place] [address] Physician Supervisor Kosher Dietary Service Dermatology 04/14/21 Marquita Starkey MD [address] [facility] [address] [place], [place] [address] Internal Medicine 05/06/21 05/06/21 Roopa Almonte MD [address] [facility] [address] [place], [place] [address] Hospitalist Endocrinology, Diabetes, and Metabolism 05/30/21 Griffin Joshi MD [address] [place] [address] Cardiovascular Disease 07/25/21 Rina Magallon, RN Lead Appeals Assistant 07/29/21 07/11/22 Griffin Joshi MD [address] [place] [address] Assigned Heart and Vascular Provider 08/06/21 10/07/21 Roopa Almonte MD [address] [place] [address] 200 [place], [place] [address] Assigned Endocrinology Provider 09/10/21 [place] [address] [facility] [place] [address] Assigned Musculoskeletal Provider 09/17/21 10/14/21 Lydia Bernstein PA-C [address] [place] [address] Assigned PCP 10/01/21 10/21/21 Rosa Maria Love CHW Community Health Worker 10/06/21 [place] [address] [facility] [address] [place], [place] [address] Assigned Musculoskeletal Provider 10/15/21 04/26/23 Paula Reza MD [address] [place] [address] Assigned PCP 10/22/21 12/23/21 Keerthi Miner APRN SCOUTS [address] [place] [address] Assigned Heart and Vascular Provider 10/08/21 02/10/22 Shahida Sutton APRN SCOUTS Assigned PCP 12/24/21 03/24/22 Porsha Michaels APRN SCOUTS [address] [place] [address] Assigned Heart and Vascular Provider 02/11/22 05/12/22 Paula Reza MD [address] [place] [address] Assigned PCP 03/25/22 04/07/22 Shahida Sutton APRN SCOUTS [address] [place] [address] Assigned PCP 04/08/22 06/30/22 Daylin Ludwig EP [facility] [address] [place] [address] Cardiac Rehabilitation Therapist 05/16/23 Laurel Velasquez MD [address] [place] [address] Assigned Heart and Vascular Provider 05/13/22 06/30/22 Daylin Ludwig EP [facility] [address] [place] [address] Cardiac Rehabilitation Therapist 06/08/22 06/09/23 Paula Reza MD [address] [place] [address] Assigned PCP 07/01/22 07/07/22 Porsha Michaels APRN SCOUTS [address] [place] [address] Assigned Heart and Vascular Provider 07/01/22 07/07/22 Laurel Velasquez MD [address] [place] [address] Assigned Heart and Vascular Provider 07/08/22 08/04/22 Shahida Sutton APRN SCOUTS Assigned PCP 07/08/22 09/08/22 Marilin Montaño, SCOUTS [address] [place] [address] Assigned Heart and Vascular Provider 08/05/22 Esha Dewitt MD [address] [place] [address] 36 [place], [place] [address] Gastroenterology 09/06/22 Heather Mosquera MD [address] [place] [address] Internal Medicine 09/06/22 Paula Reza MD [address] [place] [address] Assigned PCP 09/09/22 01/05/23 Esha Dewitt MD [address] [facility] 36 [place] [address] Assigned Gastroenterology Provider 09/23/22 Valdo Escamilla PA-C [address] [facility] [address] [place] [address] Assigned Neuroscience Provider 09/30/22 Nohelia Abarca PA-C [address] [facility] [place] [address] Physician Supervisor Kosher Dietary Service Gastroenterology 10/03/22 Heather Mosquera MD 6545 [facility] 150 [place] [address] Assigned PCP 01/06/23 Fawad York MD [address] [place] [address] Assigned Musculoskeletal Provider 04/27/23 06/25/23 documented as of this encounter
--- OUTSIDE RECORDS SUMMARY | 2023-09-21 08:37 | XMS_ITS | Encounter Summary ---
Author Organization [facility] Address [address] [place] [address] Care Team Providers Care Piercing Specialist Name Role Phone Mingo Aldana MD Primary Car e Provider Herman, Shahida Cummings APRN TAILING HAND Primary Care Provi ford Unavailable Herman, Shahida Cummings APRN TAILING HAND Unavailable Un available Herman, Shahida Cummings APRN TAILING HAND Unavailable Un available Carolynn Ramon RN Unavailable [phone] Augustine Callaway MD Unavailable Brady Lion MD Unavailable Un available Nima France-C Unavailable [phone] Camille Chandler PA-C Unavailable [phone] Anabela Barakat APRN TAILING HAND Unavailable Nima France-C Unavailable [phone] Basilio Morillo DO Unavailable Fawad York MD Unavailable [phone] Roopa Almonte MD Unavailable [phone] Augustine Callaway MD Unavailable Maryse Burton PA-C Unavailable Marquita Starkey MD Unavailable [phone] Roopa Almonte MD Unavailable [phone] Griffin Joshi MD Unavailable Rina Magallon RN Unavailable [phone] Paula Reza MD Primary Care Provider [phone] Griffin Joshi MD Unavailable Roopa Almonte MD Unavailable [phone] Willre[facility] hospital of rhode islandBasilio win DO Unavailable Lydia Bernstein PA-C Unavailable Rosa Maria Love Unavailable [phone] Augustine Callaway MD Unavailable Paula Reza MD Unavailable Keerthi Miner APRN TAILING HAND Unavailable Herman, Shahida Cummings APRN TAILING HAND Unavailable Un available Porsha Michaels APRN TAILING HAND Unavailable [phone] Paula Reza MD Unavailable Herman, Shahida Cummings APRN TAILING HAND Unavailable Un available Daylin Ludwig Unavailable [phone] Laurel Velasquez MD Unavailable [phone] Daylin Ludwig Unavailable [phone] Paula Reza MD Unavailable Porsha Michaels APRN TAILING HAND Unavailable [phone] Laurel Velasquez MD Unavailable [phone] Herman, Shahida Cummings APRN TAILING HAND Unavailable Un available Marilin Montaño TAILING HAND Unavailable [phone] Esha Dewitt MD Unavailable [phone] Heather Mosquera MD Unavailable Paula Reza MD Unavailable Esha Dewitt MD Unavailable [phone] Valdo Escamilla PA-C Unavailable Nohelia Abarca PA-C Unavailable [phone] Heather Mosquera MD Unavailable Fawad York MD Unavailable [phone] Encounter Details Date Type Department Care Team (Late st Contact Info) Description 11/13/2011 [facility] [address] [address] Mingo Aldana MD [facility] [address] [place] [address] Social History Tobacco Use Types [...] Ramirez - 11/13/2011 1:43 PM CDT See Zapnip message documented in this encounter Plan of Treatment Not on file documented as of this encounter Visit Diagnoses Not on filedocumented in this encounter Additional Health Concerns Infection Onset Date Last Indicated Resolved Time Rule Out COVID-19 02/15/2020 02/15/2020 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 Rule Out COVID-19 01/05/2021 01/05/2021 01/06/2021 12:57 PM CDT ESBL 01/05/2021 01/05/2021 Rule Out COVID-19 06/30/2021 06/30/2021 07/01/2021 9:34 AM CDT Rule Out COVID-19 07/25/2021 07/25/2021 07/25/2021 8:02 PM CDT documented as of this encounter Care Teams Piercing Specialist Relationship Specialty Start Date End Date Mingo Aldana MD PCP - General Family Practice 07/22/09 07/12/14 Shahida Sutton APRN TAILING HAND PCP - General Nurse Practitioner 08/17/14 08/04/21 Shahida Sutton APRN TAILING HAND PCP - Assigned PCP 07/12/14 05/07/18 Paula Reza MD [address] [place] [address] PCP - General Internal Medicine 08/05/21 Shahida Sutton APRN TAILING HAND Assigned PCP 07/12/14 09/30/21 Carolynn Ramon, KASIE Personal Advocate & Liaison (PAL) 12/17/18 08/07/21 [place] [address] [place] [address] Assigned Musculoskeletal Provider 12/26/19 08/21/20 Brady Lion MD Assigned Heart and Vascular Provider 12/26/19 08/14/20 Nima France PA-C [address] [place] [address] Assigned Surgical Provider 05/19/20 08/21/20 Camille Chandler PA-C [address] [facility] [address] [place] [address] Assigned Neuroscience Provider 05/19/20 09/14/20 Anabela Barakat APRN TAILING HAND 17[address] [place] [address] Assigned Heart and Vascular Provider 08/15/20 08/05/21 Nima France PA-C [address] [facility] 450 [place] [address] Assigned Musculoskeletal Provider 08/22/20 11/13/20 [place] [address] [facility] [place] 283589 Assigned Musculoskeletal Provider 11/14/20 12/04/20 Fawad York MD [address] [place], [place] [address] Assigned Musculoskeletal Provider 12/05/20 02/05/21 Roopa Almonte MD [address] [place] [address] Endocrinology, Diabetes, and Metabolism 01/19/21 [place] [address] [place] [address] Assigned Musculoskeletal Provider 02/06/21 09/16/21 Maryse Burton PA-C [address] [facility] [address] Physician Unified Communications Architect Dermatology 04/14/21 Marquita Starkey MD [address] [facility] [address] [place], [place] [address] Internal Medicine 05/06/21 05/06/21 Roopa Almonte MD [address] [facility] 200 [place], [place] [address] Hospitalist Endocrinology, Diabetes, and Metabolism 05/30/21 Griffin Joshi MD [address] [place] [address] Cardiovascular Disease 07/25/21 Rina Magallon, RN Lead Cranberry Sorter 07/29/21 07/11/22 Griffin Joshi MD [address] [place] [address] Assigned Heart and Vascular Provider 08/06/21 10/07/21 Roopa Almonte MD [address] [place], [place] [address] Assigned Endocrinology Provider 09/10/21 [place] [address] [facility] [place] [address] Assigned Musculoskeletal Provider 09/17/21 10/14/21 Lydia Bernstein PA-C [address] [place] [address] Assigned PCP 10/01/21 10/21/21 Rosa Maria Love CHW Community Health Worker 10/06/21 [place] [address] [place] [address] Assigned Musculoskeletal Provider 10/15/21 04/26/23 Paula Reza MD [address] [place], [place] [address] Assigned PCP 10/22/21 12/23/21 Keerthi Miner APRN TAILING HAND [address] [place] [address] Assigned Heart and Vascular Provider 10/08/21 02/10/22 Shahida Sutton APRN TAILING HAND Assigned PCP 12/24/21 03/24/22 Porsha Michaels APRN TAILING HAND [address] [place] [address] Assigned Heart and Vascular Provider 02/11/22 05/12/22 Paula Reza MD [address] [place] [address] Assigned PCP 03/25/22 04/07/22 Shahida Sutton APRN TAILING HAND [address] [place] [address] Assigned PCP 04/08/22 06/30/22 Daylin Ludwig EP [facility] [address] [place] [address] Cardiac Rehabilitation Therapist 05/16/23 Laurel Velasquez MD [address] [place] [address] Assigned Heart and Vascular Provider 05/13/22 06/30/22 Daylin Ludwig EP [facility] [address] [place] [address] Cardiac Rehabilitation Therapist 06/08/22 06/09/23 Paula Reza MD [address] [facility] 200 [place], [place] [address] Assigned PCP 07/01/22 07/07/22 Porsha Michaels APRN TAILING HAND [address] [place] [address] Assigned Heart and Vascular Provider 07/01/22 07/07/22 Laurel Velasquez MD [address] [place] [address] Assigned Heart and Vascular Provider 07/08/22 08/04/22 Shahida Sutton APRN TAILING HAND Assigned PCP 07/08/22 09/08/22 Marilin Montaño, TAILING HAND [address] [place] [address] Assigned Heart and Vascular Provider 08/05/22 Esha Dewitt MD [address] [place] [address] Gastroenterology 09/06/22 Heather Mosquera MD 6545 [facility] [address] [place], [place] [address] Internal Medicine 09/06/22 Paula Reza MD [address] [place] [address] Assigned PCP 09/09/22 01/05/23 Esha Dewitt MD [address] 52[address] Assigned Gastroenterology Provider 09/23/22 Valdo Escamilla PA-C [address] [facility] [address] [place] [address] Assigned Neuroscience Provider 09/30/22 Nohelia Abarca PA-C 2450 [place] [address] Physician Unified Communications Architect Gastroenterology 10/03/22 Heather Mosquera MD 6545 [facility] 150 [place], [place] [address] Assigned PCP 01/06/23 Fawad York MD [address] [place], [place] [address] Assigned Musculoskeletal Provider 04/27/23 06/25/23 documented as of this encounter
--- OUTSIDE RECORDS SUMMARY | 2023-09-21 08:37 | XMS_ITS | Encounter Summary ---
Author Organization [place] Address [address] [place] [address] Care Team Providers Care Tassel Clipper Name Role Phone Mingo Aldana MD Primary Car e Provider Herman, Shahida Cummings APRN ELIGIBILITY WORKER Primary Care Provi ford Unavailable Herman, Shahida Cummings APRN ELIGIBILITY WORKER Unavailable Un available Herman, Shahida Cummings APRN ELIGIBILITY WORKER Unavailable Un available Carolynn Ramon RN Unavailable [phone] Augustine Callaway MD Unavailable Brady Lion MD Unavailable Un available Nima France-C Unavailable [phone] Camille Chandler PA-C Unavailable [phone] Anabela Barakat APRN ELIGIBILITY WORKER Unavailable Nima France-C Unavailable [phone] Basilio Morillo DO Unavailable Fawad York MD Unavailable [phone] Roopa Almonte MD Unavailable [phone] Augustine Callaway MD Unavailable Maryse Burton PA-C Unavailable Marquita Starkey MD Unavailable [phone] Roopa Almonte MD Unavailable [phone] Griffin Joshi MD Unavailable Rina Magallon RN Unavailable [phone] Paula Reza MD Primary Care Provider [phone] Griffin Joshi MD Unavailable Roopa Almonte MD Unavailable [phone] [facility] DO Unavailable Lydia Bernstein PA-C Unavailable Rosa Maria Love Unavailable [phone] Augustine Callaway MD Unavailable Paula Reza MD Unavailable Keerthi Miner APRN ELIGIBILITY WORKER Unavailable Herman, Shahida Cummings APRN ELIGIBILITY WORKER Unavailable Un available Porsha Michaels APRN ELIGIBILITY WORKER Unavailable [phone] Paula Reza MD Unavailable Herman, Shahida Cummings APRN ELIGIBILITY WORKER Unavailable Un available Daylin Ludwig Unavailable [phone] Laurel Velasquez MD Unavailable [phone] Daylin Ludwig Unavailable [phone] Paula Reza MD Unavailable Porsha Michaels APRN ELIGIBILITY WORKER Unavailable [phone] Laurel Velasquez MD Unavailable [phone] Herman, Shahida Cummings APRN ELIGIBILITY WORKER Unavailable Un available Marilin Montaño ELIGIBILITY WORKER Unavailable [phone] Esha Dewitt MD Unavailable [phone] Heather Mosquear MD Unavailable Paula Reza MD Unavailable Esha Dewitt MD Unavailable [phone] Valdo Escamilla Deo PA-C Unavailable [phone] Nohelia Abarca PA-C Unavailable [phone] Heather Mosquera MD Unavailable Fawad York MD Unavailable [phone] Reason for Visit * Reason Onset Date Comments Patient Inquiry 07/16/2012 Encounter Details Date Type Department Care Team (Late st Contact Info) Description 07/16/2012 [facility] [address] [address] Mingo Aldana MD [facility] [address] [place] [address] Patient Inquiry Social History Tobacco [...] Rule Out COVID-19 02/15/2020 02/15/202002/16/2020 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 Rule Out COVID-19 01/05/2021 01/05/2021 01/06/2021 12:57 PM CDT ESBL 01/05/2021 01/05/2021 Rule Out COVID-19 06/30/2021 06/30/2021 07/01/2021 9:34 AM CDT Rule Out COVID-19 07/25/2021 07/25/2021 07/25/2021 8:02 PM CDT documented as of this encounter Care Teams Tassel Clipper Relationship Specialty Start Date End Date Mingo Aldana MD PCP - General Family Practice 07/22/09 07/12/14 Shahida Sutton APRN ELIGIBILITY WORKER PCP - General Nurse Practitioner 08/17/14 08/04/21 Shahida Sutton APRN ELIGIBILITY WORKER PCP - Assigned PCP 07/12/14 05/07/18 Paula Reza MD [address] [facility] 200 [place] [address] PCP - General Internal Medicine 08/05/21 Shahida Sutton APRN ELIGIBILITY WORKER Assigned PCP 07/12/14 09/30/21 Carolynn Ramon RN Personal Advocate & Liaison (PAL) 12/17/18 08/07/21 [place] [address] [place], [place] [address] Assigned Musculoskeletal Provider 12/26/19 08/21/20 Brady Lion MD Assigned Heart and Vascular Provider 12/26/19 08/14/20 Nima France PA-C [address] [facility] [address] [place] [address] Assigned Surgical Provider 05/19/20 08/21/20 Camille Chandler PA-C [address] [facility] [address] [place] [id number] Assigned Neuroscience Provider 05/19/20 09/14/20 Anabela Barakat APRN ELIGIBILITY WORKER [address] [place] [address] Assigned Heart and Vascular Provider 08/15/20 08/05/21 Nima France PA-C [address] [facility] [address] [place] [address] Assigned Musculoskeletal Provider 08/22/20 11/13/20 [place] [address] [place] [address] Assigned Musculoskeletal Provider 11/14/20 12/04/20 Fawad York MD [address] [place], [place] [address] Assigned Musculoskeletal Provider 12/05/20 02/05/21 Roopa Almonte MD [address] [place] [address] Endocrinology, Diabetes, and Metabolism 01/19/21 [place] [address] [facility] [address] [place] [address] Assigned Musculoskeletal Provider 02/06/21 09/16/21 Maryse Burton PA-C [address] [place] [address] Physician Black Off Worker Dermatology 04/14/21 Marquita Starkey MD [address] [facility] 200 [place], [place] [address] Internal Medicine 05/06/21 05/06/21 Roopa Almonte MD [address] [facility] 200 [place], [place] [address] Hospitalist Endocrinology, Diabetes, and Metabolism 05/30/21 Griffin Joshi MD [address] [facility] [address] [place] [id number] Cardiovascular Disease 07/25/21 Rina Magallon, RN Lead Java Support Engineer 07/29/21 07/11/22 Griffin Joshi MD [address] [facility] [address] [place] [address] Assigned Heart and Vascular Provider 08/06/21 10/07/21 Roopa Almonte MD [address] [place] [address] Assigned Endocrinology Provider 09/10/21 [place] [address] [facility] [place] [address] Assigned Musculoskeletal Provider 09/17/21 10/14/21 Lydia Bernstein PA-C [address] [place] [address] Assigned PCP 10/01/21 10/21/21 Kate Rosa Maria, CHW Community Health Worker 10/06/21 [place] [address] [place] [address] Assigned Musculoskeletal Provider 10/15/21 04/26/23 Paula Reza MD [address] [place] [address] Assigned PCP 10/22/21 12/23/21 Keerthi Miner APRN ELIGIBILITY WORKER [address] [place] [address] Assigned Heart and Vascular Provider 10/08/21 02/10/22 Shahida Sutton APRN ELIGIBILITY WORKER Assigned PCP 12/24/21 03/24/22 Porsha Michaels APRN ELIGIBILITY WORKER [address] [place] [address] Assigned Heart and Vascular Provider 02/11/22 05/12/22 Paula Reza MD [address] [place] [address] Assigned PCP 03/25/22 04/07/22 Shahida Sutton APRN ELIGIBILITY WORKER [address] [place] [address] Assigned PCP 04/08/22 06/30/22 Daylin Ludwig, EP [facility] [address] [place] [address] Cardiac Rehabilitation Therapist 05/16/23 Laurel Velasquez MD [address] [place] [id number] Assigned Heart and Vascular Provider 05/13/22 06/30/22 Daylin Ludwig, EP [facility] [address] [place] [id number] Cardiac Rehabilitation Therapist 06/08/22 06/09/23 Paula Reza MD [address] 243847 Assigned PCP 07/01/22 07/07/22 Porsha Michaels APRN ELIGIBILITY WORKER [address] [place] [id number] Assigned Heart and Vascular Provider 07/01/22 07/07/22 Laurel Velasquez MD [address] [place] [address] Assigned Heart and Vascular Provider 07/08/22 08/04/22 Shahida Sutton APRN ELIGIBILITY WORKER Assigned PCP 07/08/22 09/08/22 Marilin Montaño, ELIGIBILITY WORKER [address] [place] [address] Assigned Heart and Vascular Provider 08/05/22 Esha Dewitt MD 420 [facility] 36 [place] [address] Gastroenterology 09/06/22 Heather Mosquera MD [address] [place] [address] Internal Medicine 09/06/22 Paula Reza MD [address] [place] [address] Assigned PCP 09/09/22 01/05/23 Esha Dewitt MD [address] [address] Assigned Gastroenterology Provider 09/23/22 Valdo Escamilla PA-C [address] [facility] [address] [address] [place] [address] Assigned Neuroscience Provider 09/30/22 Nohelia Abarca PA-C [address] [place] [address] Physician Black Off Worker Gastroenterology 10/03/22 Heather Mosquera MD [address] [place] [address] Assigned PCP 01/06/23 Fawad York MD [address] [place], [place] [address] Assigned Musculoskeletal Provider 04/27/23 06/25/23 documented as of this encounter
--- OUTSIDE RECORDS SUMMARY | 2023-09-21 08:38 | XMS_ITS | Encounter Summary ---
Author Organization [place] Address [address] [place] [address] Care Team Providers Care Supervisor Warping Department Name Role Phone Mingo Aldana MD Primary Car e Provider Herman, Shahida Cummings APRN QUALITY PROCESS AUDITOR Primary Care Provi ford Unavailable Herman, Shahida Cummings APRN QUALITY PROCESS AUDITOR Unavailable Un available Herman, Shahida Cummings APRN QUALITY PROCESS AUDITOR Unavailable Un available Carolynn Ramon RN Unavailable [phone] Augustine Callaway MD Unavailable Brady Lion MD Unavailable Un available Nima France-C Unavailable [phone] Camille Chandler PA-C Unavailable [phone] Anabela Barakat APRN QUALITY PROCESS AUDITOR Unavailable Nima France-C Unavailable [phone] Basilio Morillo DO Unavailable Fawad York MD Unavailable [phone] Roopa Almonte MD Unavailable [phone] Augustine Callaway MD Unavailable Maryse Burton PA-C Unavailable Marquita Starkey MD Unavailable [phone] Roopa Almonte MD Unavailable [phone] Griffin Joshi MD Unavailable Rina Magallon RN Unavailable [phone] Paula Reza MD Primary Care Provider [phone] Griffin Joshi MD Unavailable Roopa Almonte MD Unavailable [phone] [facility] win DO Unavailable Lydia Bernstein PA-C Unavailable Rosa Maria Love Unavailable [phone] Augustine Callaway MD Unavailable Paula Reza MD Unavailable Keerthi Miner APRN QUALITY PROCESS AUDITOR Unavailable Herman, Shahida Cummings APRN QUALITY PROCESS AUDITOR Unavailable Un available Porsha Michaels APRN QUALITY PROCESS AUDITOR Unavailable [phone] Paula Reza MD Unavailable Herman, Shahida Cummings APRN QUALITY PROCESS AUDITOR Unavailable Un available Daylin Ludwig Unavailable [phone] Laurel Velasquez MD Unavailable [phone] Daylin Ludwig Unavailable [phone] Paula Reza MD Unavailable Porsha Michaels APRN QUALITY PROCESS AUDITOR Unavailable [phone] Laurel Velasquez MD Unavailable [phone] Herman, Shahida Cummings APRN QUALITY PROCESS AUDITOR Unavailable Un available Marilin Montaño QUALITY PROCESS AUDITOR Unavailable [phone] Esha Dewitt MD Unavailable [phone] Heather Mosquera MD Unavailable Paula Reza MD Unavailable Esha Dewitt MD Unavailable [phone] Valdo Escamilla PA-C Unavailable [phone] Nohelia Abarca PA-C Unavailable [phone] Heather Mosquera MD Unavailable [phone] Fawad York MD Unavailable Encounter Details Date Type Department Care Team (Late st Contact Info) Description 06/09/2010 [facility] [id number] [place] [id number] [place] [id number] [place] [address] Social History Tobacco Use Types Packs/Day [...] Out COVID-19 02/15/2020 02/15/2020 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/2020 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 Rule Out COVID-19 01/05/2021 01/05/2021 01/06/2021 12:57 PM CDT ESBL 01/05/2021 01/05/2021 Rule Out COVID-19 06/30/2021 06/30/2021 07/01/2021 9:34 AM CDT Rule Out COVID-19 07/25/2021 07/25/2021 07/25/2021 8:02 PM CDT documented as of this encounter Care Teams Supervisor Warping Department Relationship Specialty Start Date End Date Mingo Aldana MD PCP - General Family Practice 07/22/09 07/12/14 Shahida Sutton APRN QUALITY PROCESS AUDITOR PCP - General Nurse Practitioner 08/17/14 08/04/21 Shahida Sutton APRN QUALITY PROCESS AUDITOR PCP - Assigned PCP 07/12/14 05/07/18 Paula Reza MD [address] [place], [place] [address] PCP - General Internal Medicine 08/05/21 Shahida Sutton APRN QUALITY PROCESS AUDITOR Assigned PCP 07/12/14 09/30/21 Carolynn Ramon, KASIE Personal Advocate & Liaison (PAL) 12/17/18 08/07/21 [place] [address] [place], [place] [address] Assigned Musculoskeletal Provider 12/26/19 08/21/20 Brady Lion MD Assigned Heart and Vascular Provider 12/26/19 08/14/20 Nima France PA-C [address] [place] [address] Assigned Surgical Provider 05/19/20 08/21/20 Camille Chandler PA-C [address] [place] [address] Assigned Neuroscience Provider 05/19/20 09/14/20 Anabela Barakat APRN CNP [address] [place] [address] Assigned Heart and Vascular Provider 08/15/20 08/05/21 Nima France PA-C [address] [facility] 450 [place] [address] Assigned Musculoskeletal Provider 08/22/20 11/13/20 [place] [address] [place] [address] Assigned Musculoskeletal Provider 11/14/20 12/04/20 Fawad York MD [address] [place] [address] Assigned Musculoskeletal Provider 12/05/20 02/05/21 Roopa Almonte MD [address] [facility] 200 [place] [address] Endocrinology, Diabetes, and Metabolism 01/19/21 [place] [address] [facility] [address] [place] [address] Assigned Musculoskeletal Provider 02/06/21 09/16/21 Maryse Burton PA-C [address] [place] [address] Physician Evp Operations Dermatology 04/14/21 Marquita Starkey MD [address] [facility] [address] [place] [address] Internal Medicine 05/06/21 05/06/21 Roopa Almonte MD [address] [facility] 200 [place] [address] Hospitalist Endocrinology, Diabetes, and Metabolism 05/30/21 Griffin Joshi MD [address] [place] [address] Cardiovascular Disease 07/25/21 Rina Magallon, RN Lead Education Trainer 07/29/21 07/11/22 Griffin Joshi MD [address] [place] [id number] Assigned Heart and Vascular Provider 08/06/21 10/07/21 Roopa Almonte MD [address] [facility] 200 [place], [place] [address] Assigned Endocrinology Provider 09/10/21 [place] [address] [facility] [place] [address] Assigned Musculoskeletal Provider 09/17/21 10/14/21 Lydia Bernsteni PA-C [address] [place] [address] Assigned PCP 10/01/21 10/21/21 Rosa Maria Love CHW Community Health Worker 10/06/21 [place] [address] [place] [address] Assigned Musculoskeletal Provider 10/15/21 04/26/23 Paula Reza MD [address] [place] [address] Assigned PCP 10/22/21 12/23/21 Keerthi Miner APRN QUALITY PROCESS AUDITOR [address] [place] [address] Assigned Heart and Vascular Provider 10/08/21 02/10/22 Shahida Sutton APRN QUALITY PROCESS AUDITOR Assigned PCP 12/24/21 03/24/22 Porsha Michaels APRN QUALITY PROCESS AUDITOR [address] [place] [address] Assigned Heart and Vascular Provider 02/11/22 05/12/22 Paula Reza MD [address] [place] [address] Assigned PCP 03/25/22 04/07/22 Shahida Sutton APRN QUALITY PROCESS AUDITOR [address] [place] [address] Assigned PCP 04/08/22 06/30/22 Daylin Ludwig EP [facility] [address] [place] [address] Cardiac Rehabilitation Therapist 05/16/23 Laurel Velasquez MD [address] [place] [address] Assigned Heart and Vascular Provider 05/13/22 06/30/22 Daylin Ludwig EP [facility] [address] [place] [address] Cardiac Rehabilitation Therapist 06/08/22 06/09/23 Paula Reza MD [address] [facility] [address] [place], [place] [address] Assigned PCP 07/01/22 07/07/22 Porsha Michaels APRN QUALITY PROCESS AUDITOR [address] [place] [address] Assigned Heart and Vascular Provider 07/01/22 07/07/22 Laurel Velasquez MD [address] [place] [address] Assigned Heart and Vascular Provider 07/08/22 08/04/22 Shahida Sutton APRN QUALITY PROCESS AUDITOR Assigned PCP 07/08/22 09/08/22 Marilin Montaño, QUALITY PROCESS AUDITOR [address] [place] [address] Assigned Heart and Vascular Provider 08/05/22 Esha Dewitt MD 420 [facility] 36 [place], [place] [address] Gastroenterology 09/06/22 Heather Mosquera MD [address] [place] [address] Internal Medicine 09/06/22 Paula Reza MD [address] [place] [address] Assigned PCP 09/09/22 01/05/23 Esha Dewitt MD 420 [facility] 36 [place], [place] [address] Assigned Gastroenterology Provider 09/23/22 Valdo Escamilla PA-C [address] [facility] [address] [place], [place] [address] Assigned Neuroscience Provider 09/30/22 Nohelia Abarca PA-C [address] [place], [place] [address] Physician Evp Operations Gastroenterology 10/03/22 Heather Mosquera MD [address] [place], [place] [address] Assigned PCP 01/06/23 Fawad York MD [address] [place], [place] [address] Assigned Musculoskeletal Provider 04/27/23 06/25/23 documented as of this encounter
--- OUTSIDE RECORDS SUMMARY | 2023-09-21 08:38 | XMS_ITS | Encounter Summary ---
Author Organization [facility] Address [address] [place] [address] Care Team Providers Care Packaging Machine Supplies Distributor Name Role Phone Mingo Aldana MD Primary Car e Provider Herman, Shahida Cummings APRN TOP CARRIER Primary Care Provi ford Unavailable Herman, Shahida Cummings APRN TOP CARRIER Unavailable Un available Herman, Shahida Cummings APRN TOP CARRIER Unavailable Un available Carolynn Ramon RN Unavailable [phone] Augustine Callaway MD Unavailable Brady Lion MD Unavailable Un available Nima France-C Unavailable [phone] Camille Chandler PA-C Unavailable [phone] Anabela Barakat APRN TOP CARRIER Unavailable Nima France-C Unavailable [phone] Basilio Morillo DO Unavailable Fawad York MD Unavailable [phone] Roopa Almonte MD Unavailable [phone] Augustine Callaway MD Unavailable Maryse Burton PA-C Unavailable Marquita Starkey MD Unavailable [phone] Roopa Almonte MD Unavailable [phone] Griffin Joshi MD Unavailable Rina Magallon RN Unavailable [phone] Paula Reza MD Primary Care Provider [phone] Griffin Joshi MD Unavailable Roopa Almonte MD Unavailable [phone] [facility] win DO Unavailable Lydia Bernstein PA-C Unavailable Rosa Maria Love Unavailable [phone] Augustine Callaway MD Unavailable Paula Reza MD Unavailable Keerthi Miner APRN TOP CARRIER Unavailable Herman, Shahida Cummings APRN TOP CARRIER Unavailable Un available Porsha Michaels APRN TOP CARRIER Unavailable [phone] Paula Reza MD Unavailable Herman, Shahida Cummings APRN TOP CARRIER Unavailable Un available Daylin Ludwig Unavailable [phone] Laurel Velasquez MD Unavailable [phone] Daylin Ludwig Unavailable [phone] Paula Reza MD Unavailable Porsha Michaels APRN TOP CARRIER Unavailable [phone] Laurel Velasquez MD Unavailable [phone] Herman, Shahida Cummings APRN TOP CARRIER Unavailable Un available Marilin Montaño TOP CARRIER Unavailable [phone] Esha Dewitt MD Unavailable [phone] Heather Mosquera MD Unavailable Paula Reza MD Unavailable Esha Dewitt MD Unavailable [phone] Valdo Escamilla PA-C Unavailable [phone] Nohelia Abarca PA-C Unavailable [phone] Heather Mosquera MD Unavailable Fawad York MD Unavailable [phone] Encounter Details Date Type Department Care Team (Late st Contact Info) Description 06/15/2010 [facility] [id number] [place] [id number] [place] [id number] [place] [id number] Social History Tobacco Use Types Packs/Day [...] Out COVID-19 02/15/2020 02/15/2020 02/16/2020 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 Rule Out COVID-19 01/05/2021 01/05/2021 01/06/2021 12:57 PM CDT ESBL 01/05/2021 01/05/2021 Rule Out COVID-19 06/30/2021 06/30/2021 07/01/2021 9:34 AM CDT Rule Out COVID-19 07/25/2021 07/25/2021 07/25/2021 8:02 PM CDT documented as of this encounter Care Teams Packaging Machine Supplies Distributor Relationship Specialty Start Date End Date Mingo Aldana MD PCP - General Family Practice 07/22/09 07/12/14 Shahida Sutton APRN TOP CARRIER PCP - General Nurse Practitioner 08/17/14 08/04/21 Shahida Sutton APRN TOP CARRIER PCP - Assigned PCP 07/12/14 05/07/18 Paula Reza MD [address] [place], [place] [id number] PCP - General Internal Medicine 08/05/21 Shahida Sutton APRN TOP CARRIER Assigned PCP 07/12/14 09/30/21 Carolynn Ramon, KASIE Personal Advocate & Liaison (PAL) 12/17/18 08/07/21 [place] [address] [place], [place] [address] Assigned Musculoskeletal Provider 12/26/19 08/21/20 Brady Lion MD Assigned Heart and Vascular Provider 12/26/19 08/14/20 Nima France PA-C [address] [place] [id number] Assigned Surgical Provider 05/19/20 08/21/20 Camille Chandler PA-C [address] [place] [address] Assigned Neuroscience Provider 05/19/20 09/14/20 Anabela Barakat APRN CNP [address] [place] [address] Assigned Heart and Vascular Provider 08/15/20 08/05/21 Nima France PA-C 6545 [facility] 450 [place] [address] Assigned Musculoskeletal Provider 08/22/20 11/13/20 [place] [address] [place] [address] Assigned Musculoskeletal Provider 11/14/20 12/04/20 Fawad York MD [address] [place] [address] Assigned Musculoskeletal Provider 12/05/20 02/05/21 Roopa Almonte MD [address] [facility] 200 [place] [address] Endocrinology, Diabetes, and Metabolism 01/19/21 [place] [address] [facility] 300 [place] [address] Assigned Musculoskeletal Provider 02/06/21 09/16/21 Maryse Burton PA-C 5200 [place] [address] Physician Counselor Aide Dermatology 04/14/21 Marquita Starkey MD [address] [facility] 200 [place] [address] Internal Medicine 05/06/21 05/06/21 Roopa Almonte MD [address] [facility] 200 [place] [address] Hospitalist Endocrinology, Diabetes, and Metabolism 05/30/21 Griffin Joshi MD [address] [place] [address] Cardiovascular Disease 07/25/21 Rina Magallon, RN Lead Sitecore Developer 07/29/21 07/11/22 Griffin Joshi MD [address] [place] [address] Assigned Heart and Vascular Provider 08/06/21 10/07/21 Roopa Almonte MD [address] [facility] 200 [place], [place] [address] Assigned Endocrinology Provider 09/10/21 [place] [address] [facility] [place] [address] Assigned Musculoskeletal Provider 09/17/21 10/14/21 Lydia Bernstein PA-C [address] [place] [id number] Assigned PCP 10/01/21 10/21/21 Rosa Maria Love CHW Community Health Worker 10/06/21 [place] [address] [place] [address] Assigned Musculoskeletal Provider 10/15/21 04/26/23 Paula Reza MD [address] [place] [address] Assigned PCP 10/22/21 12/23/21 Keerthi Miner APRN TOP CARRIER [address] [place] [id number] Assigned Heart and Vascular Provider 10/08/21 02/10/22 Shahida Sutton APRN TOP CARRIER Assigned PCP 12/24/21 03/24/22 Porsha Michaels APRN TOP CARRIER [address] [place] [address] Assigned Heart and Vascular Provider 02/11/22 05/12/22 Paula Reza MD [address] [place] [address] Assigned PCP 03/25/22 04/07/22 Shahida Sutton APRN TOP CARRIER [address] [place] [address] Assigned PCP 04/08/22 06/30/22 Daylin Ludwig EP [facility] [address] [place] [address] Cardiac Rehabilitation Therapist 05/16/23 Laurel Velasquez MD [address] [place] [address] Assigned Heart and Vascular Provider 05/13/22 06/30/22 Daylin Ludwig EP [facility] [address] [place] [address] Cardiac Rehabilitation Therapist 06/08/22 06/09/23 Paula Reza MD [address] [facility] [address] [place], [place] [address] Assigned PCP 07/01/22 07/07/22 Porsha Michaels APRN TOP CARRIER [address] [place] [address] Assigned Heart and Vascular Provider 07/01/22 07/07/22 Laurel Velasquez MD [address] [place] [address] Assigned Heart and Vascular Provider 07/08/22 08/04/22 Shahida Sutton APRN TOP CARRIER Assigned PCP 07/08/22 09/08/22 Marilin Montaño, TOP CARRIER [address] [place] [address] Assigned Heart and Vascular Provider 08/05/22 Esha Dewitt MD 420 [facility] 36 [place], [place] [address] Gastroenterology 09/06/22 Heather Mosquera MD [address] [place] [address] Internal Medicine 09/06/22 Paula Reza MD [address] [place] [address] Assigned PCP 09/09/22 01/05/23 Esha Dewitt MD 420 [facility] 36 [place], [place] [address] Assigned Gastroenterology Provider 09/23/22 Valdo Escamilla PA-C [address] [facility] [address] [place], [place] [id number] Assigned Neuroscience Provider 09/30/22 Nohelia Abarca PA-C [address] [place], [place] [address] Physician Counselor Aide Gastroenterology 10/03/22 Heather Mosquera MD [address] [place], [place] [address] Assigned PCP 01/06/23 Fawad York MD [address] [place], [place] [address] Assigned Musculoskeletal Provider 04/27/23 06/25/23 documented as of this encounter
--- OUTSIDE RECORDS SUMMARY | 2023-09-21 08:38 | XMS_ITS | Encounter Summary ---
Author Organization [facility] Address [address] [place] [address] Care Team Providers Care District Supervisor Name Role Phone Dixon Carson MD Primary Care Provider Mingo Aldana MD Primary Car e Provider Shahida Sutton CUT OFF SAW OPERATOR PIPE BLANKS METAL NEUTRALIZER Primary Care Provi ford Unavailable Herman, Shahida Cummings APRN METAL NEUTRALIZER Unavailable Un available Herman, Shahida Cummings APRN METAL NEUTRALIZER Unavailable Un available Carolynn Ramon RN Unavailable [phone] Augustine Callaway MD Unavailable Brady Lion MD Unavailable Un available Nima FranceC Unavailable [phone] Camille Chandler PA-C Unavailable [phone] Anabela Barakat APRN METAL NEUTRALIZER Unavailable Nima FranceC Unavailable [phone] Basilio Morillo DO Unavailable [phone] Fawad York MD Unavailable [phone] Roopa Almonte MD Unavailable [phone] Augustine Callaway MD Unavailable Maryse Burton PA-C Unavailable Marquita Starkey MD Unavailable Roopa Almonte MD Unavailable [phone] Griffin Joshi MD Unavailable Rina Magallon RN Unavailable Paula Reza MD Primary Care Provider [phone] Griffin Joshi MD Unavailable Roopa Almonte MD Unavailable [facility] hospitalBasilio win DO Unavailable Lydia Bernstein PA-C Unavailable Rosa Maria Love Unavailable [phone] Augusitne Callaway MD Unavailable Paula Reza MD Unavailable Keerthi Miner APRN METAL NEUTRALIZER Unavailable Herman, Shahida Cummings APRN METAL NEUTRALIZER Unavailable Un available Porsha Michaels APRN METAL NEUTRALIZER Unavailable [phone] Paula Reza MD Unavailable Herman, Shahida Cummings APRN METAL NEUTRALIZER Unavailable Un available Daylin Ludwig Unavailable [phone] Laurel Velasquez MD Unavailable Daylin Ludwig Unavailable [phone] Paula Reza MD Unavailable Porsha Michaels APRN METAL NEUTRALIZER Unavailable [phone] Laurel Velasquez MD Unavailable Herman, Shahida Cummings APRN METAL NEUTRALIZER Unavailable Un available Marilin Montaño METAL NEUTRALIZER Unavailable Esha Dewitt MD Unavailable [phone] Heather Mosquera MD Unavailable Paula Reza MD Unavailable Esha Dewitt MD Unavailable [phone] Ayserick Valdo Desouza PA-C Unavailable Nohelia Abarca PA-C Unavailable [phone] Heather Mosquera MD Unavailable [phone] Fawad York MD Unavailable [phone] Reason for Visit * Reason Onset Date Comments Refill Request 03/09/2009 Encounter Details Date Type Department Care Team (Late st Contact Info) Description 03/09/2009 MyC Valorie M [address] [phone] Dixon Carson MD [address] [address] Refill Request Social History Tobacco Use Types [...] week, then 2 bid. Will route to [place] for signing. Brigida Hyatt RN D STEEL POURER * Telephone Encounter - EdmarBrigida - 03/09/2009 2:57 PM [facility] Mauro Terrell would like a refill of the following medications: TOPAMAX 25 MG OR TABS [Dixon Carson MD] Preferred pharmacy: [facility] Comment: I called this in to [facility] over the weekend, but at the time I didn't realize I didn't have any refills. In any case, I am now completely out and haven't heard anything and hope to get this approved as soon as possible D STEEL POURER documented in this encounter Plan of Treatment Not on file documented as of this encounter Visit Diagnoses Diagnosis Migraine headaches- Primary Migraine, unspecified, without mention of intractable migraine without mention of status migrainosus documented in this encounter Additional Health Concerns Infection Onset Date Last Indicated Resolved Time Rule Out COVID-19 02/15/2020 02/15/2020 02/16/2020 2:32 PM THIRD STEEL POURER Rule Out COVID-19 01/05/2021 01/05/2021 01/06/2021 12:57 PM CDT ESBL 01/05/2021 01/05/2021 Rule Out COVID-19 06/30/2021 06/30/2021 07/01/2021 9:34 AM CDT Rule Out COVID-19 07/25/2021 07/25/2021 07/25/2021 8:02 PM CDT documented as of this encounter Care Teams District Supervisor Relationship Specialty Start Date End Date Dixon Carson MD PCP - General 08/10/03 07/21/09 Mingo Aldana MD PCP - General Family Practice 07/22/09 07/12/14 Shahida Sutton APRN METAL NEUTRALIZER PCP - General Nurse Practitioner 08/17/14 08/04/21 Shahida Sutton APRN METAL NEUTRALIZER PCP - Assigned PCP 07/12/14 05/07/18 Paula Reza MD [address] [facility] 200 [place] [address] PCP - General Internal Medicine 08/05/21 Shahida Sutton APRN METAL NEUTRALIZER Assigned PCP 07/12/14 09/30/21 Carolynn Ramon RN Personal Advocate & Liaison (PAL) 12/17/18 08/07/21 [place] [address] [place] [address] Assigned Musculoskeletal Provider 12/26/19 08/21/20 Brady Lion MD Assigned Heart and Vascular Provider 12/26/19 08/14/20 Nima France PA-C [address] [place] [address] Assigned Surgical Provider 05/19/20 08/21/20 Camille Chandler PA-C 65[address] [facility] [address] [place] [address] Assigned Neuroscience Provider 05/19/20 09/14/20 Anabela Barakat APRN METAL NEUTRALIZER 1700 [place] [address] Assigned Heart and Vascular Provider 08/15/20 08/05/21 Nima France PA-C [address] [place] [address]355 Assigned Musculoskeletal Provider 08/22/20 11/13/20 [place] [address] [facility] [place] [address] Assigned Musculoskeletal Provider 11/14/20 12/04/20 Fawad York MD 909 [place] [address] Assigned Musculoskeletal Provider 12/05/20 02/05/21 Roopa Almonte MD [address] [facility] 200 [place], [place] [address] Endocrinology, Diabetes, and Metabolism 01/19/21 [place] [address] [facility] 300 [place] [address] Assigned Musculoskeletal Provider 02/06/21 09/16/21 Maryse Burton, PA-C [address] [place] [address] Physician Hr Payroll Coordinator Dermatology 04/14/21 Marquita Starkey MD [address] [facility] 200 [place] [address] Internal Medicine 05/06/21 05/06/21 Roopa Almonte MD [address] [facility] 200 [place] [address] Hospitalist Endocrinology, Diabetes, and Metabolism 05/30/21 Griffin Joshi MD 6405 [facility] [address] [place] [address] Cardiovascular Disease 07/25/21 Rina Magallon, RN Lead Roof Tile Layer 07/29/21 07/11/22 Griffin Joshi MD [address] [place] [address] Assigned Heart and Vascular Provider 08/06/21 10/07/21 Roopa Almonte MD [address] [facility] 200 [place], [place] [address] Assigned Endocrinology Provider 09/10/21 [place] [address] [facility] [place] [address] Assigned Musculoskeletal Provider 09/17/21 10/14/21 Lydia Bernstein, TRACEY [address] [place] [address]165 Assigned PCP 10/01/21 10/21/21 Rosa Maria Love CHW Community Health Worker 10/06/21 [place] [address] [address] [place] [address] Assigned Musculoskeletal Provider 10/15/21 04/26/23 Paula Reza MD [address] [facility] 200 [place] [address] Assigned PCP 10/22/21 12/23/21 Keerthi Miner APRN METAL NEUTRALIZER [address] [place] [address] Assigned Heart and Vascular Provider 10/08/21 02/10/22 Shahida Sutton APRN METAL NEUTRALIZER Assigned PCP 12/24/21 03/24/22 Porsha Michaels APRN METAL NEUTRALIZER [address] [place] [address] Assigned Heart and Vascular Provider 02/11/22 05/12/22 Paula Reza MD [address] [place] [address] Assigned PCP 03/25/22 04/07/22 Shahida Sutton APRN METAL NEUTRALIZER [address] [place] [address] Assigned PCP 04/08/22 06/30/22 Daylin Ludwig, EP [facility] [address] [place] [address] Cardiac Rehabilitation Therapist 05/16/23 Laurel Velasquez MD [address] [place] [address] Assigned Heart and Vascular Provider 05/13/22 06/30/22 Daylin Ludwig, EP [facility] [address] [place] [address] Cardiac Rehabilitation Therapist 06/08/22 06/09/23 Paula Reza MD [address] [place] [address] Assigned PCP 07/01/22 07/07/22 Porsha Michaels APRN METAL NEUTRALIZER [address] [place] [address] Assigned Heart and Vascular Provider 07/01/22 07/07/22 Laurel Velasquez MD [address] [place] [address] Assigned Heart and Vascular Provider 07/08/22 08/04/22 Shahida Sutton APRN METAL NEUTRALIZER Assigned PCP 07/08/22 09/08/22 Marilin Montaño, METAL NEUTRALIZER [address] [place] [address] Assigned Heart and Vascular Provider 08/05/22 Esha Dewitt MD 420 [facility] 36 [place] [address] Gastroenterology 09/06/22 Heather Mosquera MD [address] [place] [address] Internal Medicine 09/06/22 Paula Reza MD [address] [facility] 200 [place], [place] [address] Assigned PCP 09/09/22 01/05/23 Esha Dewitt MD 420 [facility] 36 [place] [address] Assigned Gastroenterology Provider 09/23/22 Valdo Escamilla PA-C [address] [facility] [address] [place] [address] Assigned Neuroscience Provider 09/30/22 Nohelia Abarca PA-C [address] [place], [place] [address] Physician Hr Payroll Coordinator Gastroenterology 10/03/22 Heather Mosquera MD [address] [facility] [address] [facility] 150 [place] [address] Assigned PCP 01/06/23 Fawad York MD [address] [place], [place] [address] Assigned Musculoskeletal Provider 04/27/23 06/25/23 documented as of this encounter
--- OUTSIDE RECORDS SUMMARY | 2023-09-21 08:38 | XMS_ITS | Encounter Summary ---
Author Organization [place] Address [address] [place] [address] Care Team Providers Care Clinical Informatics Specialist Name Role Phone Dixon Carson MD Primary Care Provider Mingo Aldana MD Primary Car e Provider Shahida Sutton EMPLOYMENT AGENCY MANAGER PHOTO CHECKER AND ASSEMBLER Primary Care Provi ford Unavailable Herman, Shahida Cummings APRN PHOTO CHECKER AND ASSEMBLER Unavailable Un available Herman, Shahida Cummings APRN PHOTO CHECKER AND ASSEMBLER Unavailable Un available Carolynn Ramon RN Unavailable [phone] Augustine Callaway MD Unavailable Brady Lion MD Unavailable Un available Nima FranceC Unavailable [phone] Camille Chandler PA-C Unavailable [phone] Anabela Barakat APRN PHOTO CHECKER AND ASSEMBLER Unavailable Nima FranceC Unavailable [phone] Basilio Morillo DO Unavailable [phone] Fawad York MD Unavailable [phone] Roopa Almonte MD Unavailable [phone] Augustine Callaway MD Unavailable Maryse Burton [...] Paula Reza MD Unavailable Keerthi Miner APRN PHOTO CHECKER AND ASSEMBLER Unavailable Herman, Shahida Cummings APRN PHOTO CHECKER AND ASSEMBLER Unavailable Un available Porsha Michaels APRN PHOTO CHECKER AND ASSEMBLER Unavailable [phone] Paula Reza MD Unavailable Herman, Shahida Cummings APRN PHOTO CHECKER AND ASSEMBLER Unavailable Un available Daylin Ludwig Unavailable [phone] Laurel Velasquez MD Unavailable Daylin Ludwig Unavailable [phone] Paula Reza MD Unavailable Porsha Michaels APRN PHOTO CHECKER AND ASSEMBLER Unavailable [phone] Laurel Velasquez MD Unavailable Herman, Shahida Cummings APRN PHOTO CHECKER AND ASSEMBLER Unavailable Un available Marilin Montaño PHOTO CHECKER AND ASSEMBLER Unavailable Esha Dewitt MD Unavailable [phone] Heather Mosquera MD Unavailable [phone] Paula Reza MD Unavailable Esha Dewitt MD Unavailable [phone] Ayserick Valdo Desouza PA-C Unavailable Nohelia AbarcaC Unavailable [phone] Heather Mosquera MD Unavailable [phone] Fawad York MD Unavailable Reason for Visit * Reason Onset Date Comments Refill Request 07/01/2009 topamax Encounter Details Date Type Department Care Team (Late st Contact Info) Description 07/01/2009 MyC Refill [address] [address] Dixon Carson MD [address] [address] Refill Request (topamax) Social History Tobacco Use [...] Cunningham - 07/02/2009 10:07 AM CDT[facility]uro Terrell would like a refill of the following medications: TOPAMAX 25 MG OR TABS [Dixon Carson MD] Preferred pharmacy: [facility] Comment: documented in this encounter Plan of Treatment Not on file documented as of this encounter Visit Diagnoses Diagnosis Migraine headaches- Primary Migraine, unspecified, without mention of intractable migraine without mention of status migrainosus documented in this encounter Additional Health Concerns Infection Onset Date Last Indicated Resolved Time Rule Out COVID-19 02/15/2020 02/15/2020 02/16/2020 2:32 PM 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 MEDICAL TECHNOLOGIST Rule Out COVID-19 01/05/2021 01/05/2021 01/06/2021 12:57 PM CDT ESBL 01/05/2021 01/05/2021 Rule Out COVID-19 06/30/2021 06/30/2021 07/01/2021 9:34 AM CDT Rule Out COVID-19 07/25/2021 07/25/2021 07/25/2021 8:02 PM CDT documented as of this encounter Care Teams Clinical Informatics Specialist Relationship Specialty Start Date End Date Dixon Crason MD PCP - General 08/10/03 07/21/09 Mingo Aldana MD PCP - General Family Practice 07/22/09 07/12/14 Shahida Sutton APRN PHOTO CHECKER AND ASSEMBLER PCP - General Nurse Practitioner 08/17/14 08/04/21 Shahida Sutton APRN PHOTO CHECKER AND ASSEMBLER PCP - Assigned PCP 07/12/14 05/07/18 Paula Reza MD [address] [facility] [address] [place] [address] PCP - General Internal Medicine 08/05/21 Shahida Sutton APRN PHOTO CHECKER AND ASSEMBLER Assigned PCP 07/12/14 09/30/21 Carolynn Ramon, KASIE Personal Advocate & Liaison (PAL) 12/17/18 08/07/21 [place] [address] [facility] [address] [place] [address] Assigned Musculoskeletal Provider 12/26/19 08/21/20 Brady Lion MD Assigned Heart and Vascular Provider 12/26/19 08/14/20 Nima France PA-C [address] [facility] [address] [place] [address] Assigned Surgical Provider 05/19/20 08/21/20 Camille Chandler PA-C 6545 [facility] [address] [place] [address] Assigned Neuroscience Provider 05/19/20 09/14/20 Anabela Barakat APRN PHOTO CHECKER AND ASSEMBLER [address] [place] [address] Assigned Heart and Vascular Provider 08/15/20 08/05/21 Nima France PA-C [address] [place] [address] Assigned Musculoskeletal Provider 08/22/20 11/13/20 [place] [address] [facility] [place] [address] Assigned Musculoskeletal Provider 11/14/20 12/04/20 Fawad York MD [address] [place], [place] [address] Assigned Musculoskeletal Provider 12/05/20 02/05/21 Roopa Almonte MD [address] [facility] [address] [place] [address] Endocrinology, Diabetes, and Metabolism 01/19/21 [place] [address] [facility] [address] [place] [address] Assigned Musculoskeletal Provider 02/06/21 09/16/21 Maryse Burton PA-C [address] [place] [address] Physician Scale Installer Dermatology 04/14/21 Marquita Starkey MD [address] [place] [address] Internal Medicine 05/06/21 05/06/21 Roopa Almonte MD [address] [place] [address] Hospitalist Endocrinology, Diabetes, and Metabolism 05/30/21 Griffin Joshi MD [address] [facility] [address] [place] [address] Cardiovascular Disease 07/25/21 Rina Magallon, RN Lead Filters Assembler 07/29/21 07/11/22 Griffin Joshi MD [address] [facility] [address] [place] [address] Assigned Heart and Vascular Provider 08/06/21 10/07/21 Roopa Almonte MD [address] [place] [address] 200 [place], [place] [address] Assigned Endocrinology Provider 09/10/21 [place] [address] [facility] [place] [address] Assigned Musculoskeletal Provider 09/17/21 10/14/21 Lydia Bernstein PA-C [address] [facility] [address] [place] [address] Assigned PCP 10/01/21 10/21/21 Rosa Maria Love CHW Community Health Worker 10/06/21 [place] [address] [facility] [address] [place] [address] Assigned Musculoskeletal Provider 10/15/21 04/26/23 Paula Reza MD [address] [facility] [address] [place] [address] Assigned PCP 10/22/21 12/23/21 Keerthi Miner APRN PHOTO CHECKER AND ASSEMBLER [address] [place] [address] Assigned Heart and Vascular Provider 10/08/21 02/10/22 Shahida Sutton APRN PHOTO CHECKER AND ASSEMBLER Assigned PCP 12/24/21 03/24/22 Porsha Michaels EMPLOYMENT AGENCY MANAGER PHOTO CHECKER AND ASSEMBLER [address] [place] [address] Assigned Heart and Vascular Provider 02/11/22 05/12/22 Paula Reza MD [address] [facility] [address] [place] [address] Assigned PCP 03/25/22 04/07/22 Shahida Sutton APRN PHOTO CHECKER AND ASSEMBLER [address] [place] [address] Assigned PCP 04/08/22 06/30/22 Daylin Ludwig EP [facility] [address] [place] [address] Cardiac Rehabilitation Therapist 05/16/23 Laurel Velasquez MD [address] [place] [address] Assigned Heart and Vascular Provider 05/13/22 06/30/22 Daylin Ludwig [facility] [address] [place] [address] Cardiac Rehabilitation Therapist 06/08/22 06/09/23 Paula Reza MD [address] [place], [place] [address] Assigned PCP 07/01/22 07/07/22 Porsha Michaels APRN PHOTO CHECKER AND ASSEMBLER [address] [place] [address] Assigned Heart and Vascular Provider 07/01/22 07/07/22 Laurel Velasquez MD [address] [place], [place] [address] Assigned Heart and Vascular Provider 07/08/22 08/04/22 Shahida Sutton APRN PHOTO CHECKER AND ASSEMBLER Assigned PCP 07/08/22 09/08/22 Marilin Montaño, PHOTO CHECKER AND ASSEMBLER [address] [place] [address] Assigned Heart and Vascular Provider 08/05/22 Esha Dewitt MD [address] [place] [address] 826845 Gastroenterology 09/06/22 Heather Mosquera MD [address] [place] [address] Internal Medicine 09/06/22 Paula Reza MD [address] [place], [place] [address] Assigned PCP 09/09/22 01/05/23 Esha Dewitt MD [address] [place] [address] 866235 Assigned Gastroenterology Provider 09/23/22 Valdo Escamilla PA-C [address] [facility] [address] [place] [address] Assigned Neuroscience Provider 09/30/22 Nohelia Abarca PA-C [address] [place], [place] [address] Physician Scale Installer Gastroenterology 10/03/22 Heather Mosquera MD [address] [facility] [address] [place] [address] Assigned PCP 01/06/23 Fawad York MD [address] [place], [place] [address] Assigned Musculoskeletal Provider 04/27/23 06/25/23 documented as of this encounter
--- OUTSIDE RECORDS SUMMARY | 2023-09-21 08:38 | XMS_ITS | Encounter Summary ---
Author Organization [place] Address [address] [place] [address] Care Team Providers Care Bed Spring Maker Name Role Phone Dixon Carson MD Primary Care Provider Mingo Aldana MD Primary Car e Provider Shahida Sutton TRUCKMAN SEAFOOD SPECIALIST Primary Care Provi ford Unavailable Herman, Shahida Cummings APRN SEAFOOD SPECIALIST Unavailable Un available Herman, Shahida Cummings APRN SEAFOOD SPECIALIST Unavailable Un available Carolynn Ramon RN Unavailable [phone] Augustine Callaway MD Unavailable Brady Lion MD Unavailable Un available Nima FranceC Unavailable [phone] Camille Chandler PA-C Unavailable [phone] Anabela Barakat APRN SEAFOOD SPECIALIST Unavailable Nima FranceC Unavailable [phone] Basilio Morillo DO Unavailable [phone] Fawad York MD Unavailable [phone] Roopa Almonte MD Unavailable [phone] Augustine Callaway MD Unavailable Maryse Burton [...] Paula Reza MD Unavailable Keerthi Miner APRN SEAFOOD SPECIALIST Unavailable Herman, Shahida Cummings APRN SEAFOOD SPECIALIST Unavailable Un available Porsha Michaels APRN SEAFOOD SPECIALIST Unavailable [phone] Paula Reza MD Unavailable Herman, Shahida Cummings APRN SEAFOOD SPECIALIST Unavailable Un available Daylin Ludwig Unavailable [phone] Laurel Velasquez MD Unavailable Daylin Ludwig Unavailable [phone] Paula Reza MD Unavailable Porsha Michaels APRN SEAFOOD SPECIALIST Unavailable [phone] Laurel Velasquez MD Unavailable Herman, Shahida Cummings APRN SEAFOOD SPECIALIST Unavailable Un available Marilin Montaño SEAFOOD SPECIALIST Unavailable Esha Dewitt MD Unavailable [phone] Heather Mosquera MD Unavailable Paula Reza MD Unavailable Esha Dewitt MD Unavailable [phone] Valdo Escamilla PA-C Unavailable Nohelia Abarca PA-C Unavailable [phone] Heather Mosquera MD Unavailable Fawad York MD Unavailable [phone] Reason for Visit * Reason Onset Date Comments Pt. Information/instruction 11/12/2008 Rece nt discussion with Dr. Walker Encounter Details Date Type Department Care Team (Late st Contact Info) Description 11/12/2008 [facility] [address] [address] Dixon Carson MD [address] [id number] Pt. Information/instruct ion (Recent discus... 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 Rule Out COVID-19 01/05/2021 01/05/2021 01/06/2021 12:57 PM CDT ESBL 01/05/2021 01/05/2021 Rule Out COVID-19 06/30/2021 06/30/2021 07/01/2021 9:34 AM CDT Rule Out COVID-19 07/25/2021 07/25/2021 07/25/2021 8:02 PM CDT documented as of this encounter Care Teams Bed Spring Maker Relationship Specialty Start Date End Date Dixon Carson MD PCP - General 08/10/03 07/21/09 Mingo Aldana MD PCP - General Family Practice 07/22/09 07/12/14 Shahida Sutton APRN SEAFOOD SPECIALIST PCP - General Nurse Practitioner 08/17/14 08/04/21 Shahida Sutton APRN SEAFOOD SPECIALIST PCP - Assigned PCP 07/12/14 05/07/18 Paula Reza MD [address] [facility] [address] [place] [address] PCP - General Internal Medicine 08/05/21 Shahida Sutton APRN SEAFOOD SPECIALIST Assigned PCP 07/12/14 09/30/21 Carolynn Ramon, KASIE Personal Advocate & Liaison (PAL) 12/17/18 08/07/21 [place] [address] [place] [address] Assigned Musculoskeletal Provider 12/26/19 08/21/20 Brady Lion MD Assigned Heart and Vascular Provider 12/26/19 08/14/20 Nima France PA-C [address] [facility] [address] [address] [place] [address] Assigned Surgical Provider 05/19/20 08/21/20 Camille Chandler PA-C 6545 [facility] [address] [place] [address] Assigned Neuroscience Provider 05/19/20 09/14/20 Anabela Barakat APRN SEAFOOD SPECIALIST [address] [place] [address] Assigned Heart and Vascular Provider 08/15/20 08/05/21 Nima France PA-C [address] [facility] [address] [address] [place] [address] Assigned Musculoskeletal Provider 08/22/20 11/13/20 [place] [address] [place] [address] Assigned Musculoskeletal Provider 11/14/20 12/04/20 Fawad York MD [address] [place] [address] Assigned Musculoskeletal Provider 12/05/20 02/05/21 Roopa Almonte MD [address] [facility] [address] [place] [address] Endocrinology, Diabetes, and Metabolism 01/19/21 [place] [address] [facility] [address] [address] [place] [address] Assigned Musculoskeletal Provider 02/06/21 09/16/21 Maryse Burton PA-C [address] [facility] [place] [address] Physician Critical Care Clinical Nurse Specialist Dermatology 04/14/21 Marquita Starkey MD [address] [facility] [address] [place] [address] Internal Medicine 05/06/21 05/06/21 Roopa Almonte MD [address] [facility] [address] [place] [address] Hospitalist Endocrinology, Diabetes, and Metabolism 05/30/21 Griffin Joshi MD [address] [facility] [address] [place] [address] Cardiovascular Disease 07/25/21 Rina Magallon, RN Lead Personal Loan Specialist 07/29/21 07/11/22 Griffin Joshi MD [address] [facility] [place] [place] [address] Assigned Heart and Vascular Provider 08/06/21 10/07/21 Roopa Almonte MD [address] [facility] [address] [place], [place] [address] Assigned Endocrinology Provider 09/10/21 [place] [address] [facility] [place] [address] Assigned Musculoskeletal Provider 09/17/21 10/14/21 Lydia Bernstein PA-C [address] [place] [address] Assigned PCP 10/01/21 10/21/21 Rosa Maria Love Cristina Community Health Worker 10/06/21 [place] [address] [place], [place] [address] Assigned Musculoskeletal Provider 10/15/21 04/26/23 Paula Reza MD [address] [facility] [address] [place] [address] Assigned PCP 10/22/21 12/23/21 Keerthi Miner APRN SEAFOOD SPECIALIST [address] [place] [address] Assigned Heart and Vascular Provider 10/08/21 02/10/22 Shahida Sutton APRN SEAFOOD SPECIALIST Assigned PCP 12/24/21 03/24/22 Porsha Michaels APRN SEAFOOD SPECIALIST [address] [place] [address] Assigned Heart and Vascular Provider 02/11/22 05/12/22 Paula Reza MD [address] [facility] [address] [place] [address] Assigned PCP 03/25/22 04/07/22 Shahida Sutton APRN SEAFOOD SPECIALIST [address] [place] [address] Assigned PCP 04/08/22 06/30/22 Daylin Ludwig, MIKI [facility] [address] [place] [address] Cardiac Rehabilitation Therapist 05/16/23 Laurel Velasquez MD [address] [place] [address] Assigned Heart and Vascular Provider 05/13/22 06/30/22 Daylin Ludwig, MIKI [facility] [address] [place] [address] Cardiac Rehabilitation Therapist 06/08/22 06/09/23 Paula Reza MD [address] [facility] [address] [place] [address] Assigned PCP 07/01/22 07/07/22 Porsha Michaels APRN SEAFOOD SPECIALIST [address] [place] [address] Assigned Heart and Vascular Provider 07/01/22 07/07/22 Laurel Velasquez MD [address] [place] [address] Assigned Heart and Vascular Provider 07/08/22 08/04/22 Shahida Sutton APRN SEAFOOD SPECIALIST Assigned PCP 07/08/22 09/08/22 Marilin Montaño, SEAFOOD SPECIALIST [address] [place] [address] Assigned Heart and Vascular Provider 08/05/22 Esha Dewitt MD [address] [address] Gastroenterology 09/06/22 Heather Mosquera MD [address] [place], [place] [address] Internal Medicine 09/06/22 Paula Reza MD [address] [facility] 200 [place], [place] [address] Assigned PCP 09/09/22 01/05/23 Esha Dewitt MD [address] [address] Assigned Gastroenterology Provider 09/23/22 Valdo Escamilla PA-C 6[address] [facility] [address] [place], [place] [address] Assigned Neuroscience Provider 09/30/22 Nohelia Abarca PA-C [address] [place], [place] [address] Physician Critical Care Clinical Nurse Specialist Gastroenterology 10/03/22 Heather Mosquera MD [address] [place], [place] [address] Assigned PCP 01/06/23 Fawad York MD [address] [place], [place] [address] Assigned Musculoskeletal Provider 04/27/23 06/25/23 documented as of this encounter
--- OUTSIDE RECORDS SUMMARY | 2023-09-21 08:38 | XMS_ITS | Encounter Summary ---
Author Organization [place] Address [address] [place] [address] Care Team Providers Care Tanker Truck Driver Name Role Phone Dixon Carson MD Primary Care Provider Mingo Aldana MD Primary Car e Provider Shahida Sutton [id number] TANK CREWMAN DIRECTOR OF PSYCHIATRY Primary Care Provi ford Unavailable Herman, Shahida Cummings APRN DIRECTOR OF PSYCHIATRY Unavailable Un available Herman, Shahida Cummings APRN DIRECTOR OF PSYCHIATRY Unavailable Un available Carolynn Ramon RN Unavailable [phone] Augustine Callaway MD Unavailable Brady Lion MD Unavailable Un available Nima FranceC Unavailable [phone] Camille Chandler PA-C Unavailable [phone] Anabela Barakat APRN DIRECTOR OF PSYCHIATRY Unavailable Nima FranceC Unavailable [phone] Basilio Morillo DO Unavailable [phone] Fawad York MD Unavailable [phone] Roopa Almonte MD Unavailable [phone] Augustine Callaway MD Unavailable Maryse Burton PA-C Unavailable Marquita Starkey MD Unavailable Roopa Almonte MD Unavailable [phone] Griffin Joshi MD Unavailable Rina Magallon RN Unavailable Paula Reza MD Primary Care Provider [phone] Griffin Joshi MD Unavailable Roopa Almonte MD Unavailable Willprovidence va medical centerBasilio win DO Unavailable Lydia Bernstein PA-C Unavailable Rosa Maria Love Unavailable [phone] Augustine Callaway MD Unavailable Paula Reza MD Unavailable Keerthi Miner APRN DIRECTOR OF PSYCHIATRY Unavailable Herman, Shahida Cummings APRN DIRECTOR OF PSYCHIATRY Unavailable Un available Porsha Michaels APRN DIRECTOR OF PSYCHIATRY Unavailable [phone] Paula Reza MD Unavailable Herman, Shahida Cummings APRN DIRECTOR OF PSYCHIATRY Unavailable Un available Daylin Ludwig Unavailable [phone] Laurel Velasquez MD Unavailable Daylin Ludwig Unavailable [phone] Paula Reza MD Unavailable Porsha Michaels APRN DIRECTOR OF PSYCHIATRY Unavailable [phone] Laurel Velasquez MD Unavailable Herman, Shahida Cummings APRN DIRECTOR OF PSYCHIATRY Unavailable Un available Marilin Montaño DIRECTOR OF PSYCHIATRY Unavailable [phone] Esha Dewitt MD Unavailable [phone] Heather Mosquera MD Unavailable [phone] Paula Reza MD Unavailable Esha Dewitt MD Unavailable [phone] Ayserick Valdo Desouza PA-C Unavailable [phone] Nohelia AbarcaC Unavailable [phone] Heather Mosquera MD Unavailable [phone] Fawad York MD Unavailable [phone] Reason for Visit * Reason Onset Date Comments Refill Request 09/25/2008 vicodin Encounter Details Date Type Department Care Team (Late st Contact Info) Description 09/25/2008 MyC Refill [address] [address] Dixon Carson MD [address] [address] Refill Request (vicodin) Social History Tobacco Use [...] for low back pain Date last filled: #[id number] (RX STATES #60/MO) NOT A PSO FRANCO Nolasco RN * Telephone Encounter - Liliana Nolasco - 09/25/2008 10:03 AM CDTMessage from [facility]: Mauro Terrell would like a refill of the following medications: HYDROCODONE-ACETAMINOPHEN 10-325 MG OR TABS [Dixon Carson MD] Preferred pharmacy: [facility] Comment: Still dealing with daily debilitating headaches [...] Out COVID-19 02/15/2020 02/15/2020 02/16/2020 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 Rule Out COVID-19 01/05/2021 01/05/2021 01/06/2021 12:57 PM CDT ESBL 01/05/2021 01/05/2021 Rule Out COVID-19 06/30/2021 06/30/2021 07/01/2021 9:34 AM CDT Rule Out COVID-19 07/25/2021 07/25/2021 07/25/2021 8:02 PM CDT documented as of this encounter Care Teams Tanker Truck Driver Relationship Specialty Start Date End Date Dixon Carson MD PCP - General 08/10/03 07/21/09 Mingo Aldana MD PCP - General Family Practice 07/22/09 07/12/14 Shahida Sutton APRN DIRECTOR OF PSYCHIATRY PCP - General Nurse Practitioner 08/17/14 08/04/21 Shahida Sutton APRN DIRECTOR OF PSYCHIATRY PCP - Assigned PCP 07/12/14 05/07/18 Paula Reza MD [address] [facility] [address] [place] [address] PCP - General Internal Medicine 08/05/21 Shahida Sutton APRN DIRECTOR OF PSYCHIATRY Assigned PCP 07/12/14 09/30/21 Carolynn Ramon RN Personal Advocate & Liaison (PAL) 12/17/18 08/07/21 [place] [address] [place] [address] Assigned Musculoskeletal Provider 12/26/19 08/21/20 Brady Lion MD Assigned Heart and Vascular Provider 12/26/19 08/14/20 Nima France PA-C [address] [facility] [address] [place] [address] Assigned Surgical Provider 05/19/20 08/21/20 Camille Chandler PA-C [address] [facility] [address] [facility] [address] [place] [address] Assigned Neuroscience Provider 05/19/20 09/14/20 Anabela Barakat APRN DIRECTOR OF PSYCHIATRY [address] [place] [address] Assigned Heart and Vascular Provider 08/15/20 08/05/21 Nima France PA-C [address] [place] [address] Assigned Musculoskeletal Provider 08/22/20 11/13/20 [place] [address] [facility] [place] [address] Assigned Musculoskeletal Provider 11/14/20 12/04/20 Fawad York MD [address] [place] [address] Assigned Musculoskeletal Provider 12/05/20 02/05/21 Roopa Almonte MD [address] [facility] [facility] 200 [place] [address] Endocrinology, Diabetes, and Metabolism 01/19/21 [place] [address] [facility] [address] [place] [address] Assigned Musculoskeletal Provider 02/06/21 09/16/21 Maryse Burton PAAna MariaC [address] [place] [address] Physician Bellman Dermatology 04/14/21 Marquita Starkey MD [address] [facility] [facility] 200 [place] [address] Internal Medicine 05/06/21 05/06/21 Roopa Almonte MD [address] [facility] [address] [place] [address] Hospitalist Endocrinology, Diabetes, and Metabolism 05/30/21 Griffin Joshi MD [address] [facility] [address] [place] [address] Cardiovascular Disease 07/25/21 Rina Magallon, RN Lead Payroll Accounting Specialist 07/29/21 07/11/22 Griffin Joshi MD [address] [place] [address] Assigned Heart and Vascular Provider 08/06/21 10/07/21 Roopa Almonte MD [address] [facility] [address] [place], [place] [address] Assigned Endocrinology Provider 09/10/21 [place] [address] [facility] [place] [address] Assigned Musculoskeletal Provider 09/17/21 10/14/21 Lydia Bernstein PA-C [address] [place] [address] Assigned PCP 10/01/21 10/21/21 Rosa Maria Love CHW Community Health Worker 10/06/21 [place] [address] [address] [place] [address] Assigned Musculoskeletal Provider 10/15/21 04/26/23 Paula Reza MD [address] [facility] [address] [place] [address] Assigned PCP 10/22/21 12/23/21 Keerthi Miner APRN DIRECTOR OF PSYCHIATRY [address] [place] [address] Assigned Heart and Vascular Provider 10/08/21 02/10/22 Shahida Sutton APRN DIRECTOR OF PSYCHIATRY Assigned PCP 12/24/21 03/24/22 Porsha Michaels APRN DIRECTOR OF PSYCHIATRY [address] [place] [address] Assigned Heart and Vascular Provider 02/11/22 05/12/22 Paula Reza MD [address] [place] [address] Assigned PCP 03/25/22 04/07/22 Shahida Sutton APRN DIRECTOR OF PSYCHIATRY [address] [place] [address] Assigned PCP 04/08/22 06/30/22 Daylin Ludwig, EP [facility] [address] [place] [address] Cardiac Rehabilitation Therapist 05/16/23 Laurel Velasquez MD [address] [place] [address] Assigned Heart and Vascular Provider 05/13/22 06/30/22 Daylin Ludwig, MIKI [facility] [address] [place] [address] Cardiac Rehabilitation Therapist 06/08/22 06/09/23 Paula Reza MD [address] [place] [address] Assigned PCP 07/01/22 07/07/22 Porsha Michaels APRN DIRECTOR OF PSYCHIATRY [address] [place] [address] Assigned Heart and Vascular Provider 07/01/22 07/07/22 Laurel Velasquez MD [address] [place] [address] Assigned Heart and Vascular Provider 07/08/22 08/04/22 Shahida Sutton APRN DIRECTOR OF PSYCHIATRY Assigned PCP 07/08/22 09/08/22 Marilin Montaño, DIRECTOR OF PSYCHIATRY [address] [place] [address] Assigned Heart and Vascular Provider 08/05/22 Esha Dewitt MD [address] [facility] [address] [place] [address] Gastroenterology 09/06/22 Heather Mosquera MD [address] [place] [address] Internal Medicine 09/06/22 Paula Reza MD [address] [facility] [address] [place], [place] [address] Assigned PCP 09/09/22 01/05/23 Esha Dewitt MD [address] [facility] [address] [place] [address] Assigned Gastroenterology Provider 09/23/22 Valdo Escamilla PA-C [address] [facility] [address] [place] [address] Assigned Neuroscience Provider 09/30/22 Nohelia Abarca PA-C [address] [facility] [place], [place] [address] Physician [place] Gastroenterology 10/03/22 Heather Mosquera MD [address] [place] [address] Assigned PCP 01/06/23 Fawad York MD [address] [place], [place] [address] Assigned Musculoskeletal Provider 04/27/23 06/25/23 documented as of this encounter
--- OUTSIDE RECORDS SUMMARY | 2023-09-21 08:38 | XMS_ITS | Encounter Summary ---
Author Organization [place] Address [address] [place] [address] Care Team Providers Care Cattle Sorter Name Role Phone Mingo Aldana MD Primary Car e Provider Herman, Shahida Cummings APRN LOCKER ROOM CLERK Primary Care Provi ford Unavailable Herman, Shahida Cummings APRN LOCKER ROOM CLERK Unavailable Un available Herman, Shahida Cummings APRN LOCKER ROOM CLERK Unavailable Un available Carolynn Ramon RN Unavailable [phone] Augustine Callaway MD Unavailable Brady Lion MD Unavailable Un available Nima rFance-C Unavailable [phone] Camille Chandler PA-C Unavailable [phone] Anabela Barakat APRN LOCKER ROOM CLERK Unavailable Nima France-C Unavailable [phone] Basilio Morillo DO Unavailable Fawad York MD Unavailable [phone] Roopa Almonte MD Unavailable [phone] Augustine Callaway MD Unavailable Maryse Burton PA-C Unavailable Marquita Starkey MD Unavailable [phone] Roopa Almonte MD Unavailable [phone] Griffin Joshi MD Unavailable Rina Magallon RN Unavailable [phone] Paula Reza MD Primary Care Provider [phone] Griffin Joshi MD Unavailable Roopa Almonte MD Unavailable [phone] [facility] hospitalBasilio win DO Unavailable Lydia Bernstein PA-C Unavailable Rosa Maria Love Unavailable [phone] Augustine Callaway MD Unavailable Paula Reza MD Unavailable Keerthi Miner APRN LOCKER ROOM CLERK Unavailable Herman, Shahida Cummings APRN LOCKER ROOM CLERK Unavailable Un available Porsha Michaels APRN LOCKER ROOM CLERK Unavailable [phone] Paula Reza MD Unavailable Herman, Shahida Cummings APRN LOCKER ROOM CLERK Unavailable Un available Daylin Ludwig Unavailable [phone] Laurel Velasquez MD Unavailable [phone] Daylin Ludwig Unavailable [phone] Paula Reza MD Unavailable Posrha Michaels APRN LOCKER ROOM CLERK Unavailable [phone] Laurel Velasquez MD Unavailable [phone] Herman, Shahida Cummings APRN LOCKER ROOM CLERK Unavailable Un available Marilin Montaño LOCKER ROOM CLERK Unavailable [phone] Esha Dewitt MD Unavailable [phone] Heather Mosquera MD Unavailable Paula Reza MD Unavailable Esha Dewitt MD Unavailable [phone] Valdo Escamilla Deo PA-C Unavailable Rima Wilfredosima PA-C Unavailable [phone] Heather Mosquera MD Unavailable Fawad York MD Unavailable [phone] Reason for Visit * Reason Onset Date Comments Refill Request 03/18/2010 Vicodin Encounter Details Date Type Department Care Team (Late st Contact Info) Description 03/18/2010 MyC [facility] [address] [address] Mingo Aldana MD [facility] [address] [place] [address] Refill Request (Vicodin) Social History [...] Milagros Denton RN - 03/18/2010 2:[address] Mingo Aldana: Please see Pt's request below. As stated, he has been taking Vicodin 3x per day some days. Last refill was on 02/21/2010 for a max dose of 2 tablets per day. Thank you, Milagros Denton RN ING CENTER TUTOR * Telephone Encounter - Milagros Denton RN - 03/18/2010 2:14 PM [facility]Message [facility]: Mauro Jared Terrell would like a refill of the following medications: hydrocodone-acetaminophen (NORCO) 10-325 MG per tablet [Mingo Aldana MD] Preferred pharmacy: [facility] [place] Comment: Doctor,Per my Psych I have begun [...] my supply is low. Any questions, concerns [phone] ING CENTER TUTOR documented in this encounter Plan of Treatment Not on file documented as of this encounter Visit Diagnoses Diagnosis Lumbago- Primary documented in this encounter Additional Health Concerns Infection Onset Date Last Indicated Resolved Time Rule Out COVID-19 02/15/2020 02/15/2020 02/16/2020 2:32 PM NURSING CENTER TUTOR Rule Out COVID-19 01/05/2021 01/05/2021 01/06/2021 12:57 PM CDT ESBL 01/05/2021 01/05/2021 Rule Out COVID-19 06/30/2021 06/30/2021 07/01/2021 9:34 AM CDT Rule Out COVID-19 07/25/2021 07/25/2021 07/25/2021 8:02 PM CDT documented as of this encounter Care Teams Cattle Sorter Relationship Specialty Start Date End Date Mingo Aldana MD PCP - General Family Practice 07/22/09 07/12/14 Shahida Sutton APRN LOCKER ROOM CLERK PCP - General Nurse Practitioner 08/17/14 08/04/21 Shahida Sutton APRN LOCKER ROOM CLERK PCP - Assigned PCP 07/12/14 05/07/18 Paula Reza MD [address] [facility] [address] [place] [address] PCP - General Internal Medicine 08/05/21 Shahida Sutton APRN LOCKER ROOM CLERK Assigned PCP 07/12/14 09/30/21 Carolynn Ramon, KASIE Personal Advocate & Liaison (PAL) 12/17/18 08/07/21 [place] [address] [facility] [address] [place] [address] Assigned Musculoskeletal Provider 12/26/19 08/21/20 Brady Lion MD Assigned Heart and Vascular Provider 12/26/19 08/14/20 Nima France PA-C [address] [facility] [address] [place] [address] Assigned Surgical Provider 05/19/20 08/21/20 Camille Chandler PA-C [address] [facility] [address] [place] [address] Assigned Neuroscience Provider 05/19/20 09/14/20 Anabela Barakat APRN LOCKER ROOM CLERK [address] [place] [address] Assigned Heart and Vascular Provider 08/15/20 08/05/21 Nima France PA-C [address] [place] [address] Assigned Musculoskeletal Provider 08/22/20 11/13/20 [place] [address] [facility] [place] [address] Assigned Musculoskeletal Provider 11/14/20 12/04/20 Fawad York MD [address] [place], [place] [address] Assigned Musculoskeletal Provider 12/05/20 02/05/21 Roopa Almonte MD [address] [employer] [facility] [address] [place] [address] Endocrinology, Diabetes, and Metabolism 01/19/21 [place] [address] [facility] [address] [place] [address] Assigned Musculoskeletal Provider 02/06/21 09/16/21 Maryse Burton PA-C [address] [place] [address] Physician Airport Operations Supervisor Dermatology 04/14/21 Marquita Starkey MD [address] [place] [address] Internal Medicine 05/06/21 05/06/21 Roopa Almonte MD [address] [place] [address] Hospitalist Endocrinology, Diabetes, and Metabolism 05/30/21 Griffin Joshi MD [address] [facility] [address] [place] [address] Cardiovascular Disease 07/25/21 Rina Magallon, RN Lead Public Policy Professor 07/29/21 07/11/22 Griffin Joshi MD [address] [facility] [address] [place] [address] Assigned Heart and Vascular Provider 08/06/21 10/07/21 Roopa Almonte MD [address] [place] [address] [address] [place], [place] [address] Assigned Endocrinology Provider 09/10/21 [place] [address] [facility] [place] [address] Assigned Musculoskeletal Provider 09/17/21 10/14/21 Lydia Bernstein PA-C [address] [facility] [address] [place] [address] Assigned PCP 10/01/21 10/21/21 Rosa Maria Love CHW Community Health Worker 10/06/21 [place] [address] [facility] [address] [place] [address] Assigned Musculoskeletal Provider 10/15/21 04/26/23 Paula Reza MD [address] [facility] [address] [place] [address] Assigned PCP 10/22/21 12/23/21 Keerthi Miner APRN LOCKER ROOM CLERK [address] [place] [address] Assigned Heart and Vascular Provider 10/08/21 02/10/22 Shahida Sutton APRN LOCKER ROOM CLERK Assigned PCP 12/24/21 03/24/22 Porsha Michaels GENERAL ACCOUNTANT LOCKER ROOM CLERK [address] [place] [address] Assigned Heart and Vascular Provider 02/11/22 05/12/22 Paula Reza MD [address] [facility] [address] [place] [address] Assigned PCP 03/25/22 04/07/22 Shahida Stuton APRN LOCKER ROOM CLERK [address] [place] [address] Assigned PCP 04/08/22 06/30/22 Daylin Ludwig EP [facility] [address] [place] [address] Cardiac Rehabilitation Therapist 05/16/23 Laurel Velasquez MD [address] [place] [address] Assigned Heart and Vascular Provider 05/13/22 06/30/22 Daylin Ludwig EP [facility] [address] [place] [address] Cardiac Rehabilitation Therapist 06/08/22 06/09/23 Paula Reza MD [address] [place], [place] [address] Assigned PCP 07/01/22 07/07/22 Porsha Michaels APRN LOCKER ROOM CLERK [address] [place] [address] Assigned Heart and Vascular Provider 07/01/22 07/07/22 Laurel Velasquez MD [address] [place], [place] [address] Assigned Heart and Vascular Provider 07/08/22 08/04/22 Shahida Sutton APRN LOCKER ROOM CLERK Assigned PCP 07/08/22 09/08/22 Marilin Montaño, LOCKER ROOM CLERK [address] [place] [address] Assigned Heart and Vascular Provider 08/05/22 Esha Dewitt MD [address] [place] [id number] Gastroenterology 09/06/22 Heather Mosquera MD [address] [place] [address] Internal Medicine 09/06/22 Paula Reza MD [address] [place], [place] [address] Assigned PCP 09/09/22 01/05/23 Esha Dewitt MD [address] [place] [address] Assigned Gastroenterology Provider 09/23/22 Valdo Escamilla PA-C [address] [facility] [address] [place] [address] Assigned Neuroscience Provider 09/30/22 Nohelia Abarca PA-C [address] [place], [place] [address] Physician Airport Operations Supervisor Gastroenterology 10/03/22 Heather Mosquera MD [address] [facility] [address] [place] [address] Assigned PCP 01/06/23 Fawad York MD [address] [place], [place] [address] Assigned Musculoskeletal Provider 04/27/23 06/25/23 documented as of this encounter
--- OUTSIDE RECORDS SUMMARY | 2023-09-21 08:38 | XMS_ITS | Encounter Summary ---
Author Organization [facility] Address [address] [place] [address] Care Team Providers Care Investigation Specialist Name Role Phone Dixon Carson MD Primary Care Provider Mingo Aldana MD Primary Car e Provider Shahida Sutton PROSTHETIC AIDE MANAGER RESOURCE Primary Care Provi ford Unavailable Herman, Shahida Cummings APRN MANAGER RESOURCE Unavailable Un available Herman, Shahida Cummings APRN MANAGER RESOURCE Unavailable Un available Carolynn Ramon RN Unavailable [phone] Augustine Callaway MD Unavailable Brady Lion MD Unavailable Un available Nima FranceC Unavailable [phone] Camille Chandler PA-C Unavailable [phone] Anabela Barakat APRN MANAGER RESOURCE Unavailable Nima FranceC Unavailable [phone] Basilio Morillo DO Unavailable [phone] Fawad York MD Unavailable [phone] Roopa Almonte MD Unavailable [phone] Augustine Callaway MD Unavailable Maryse Burton PA-C Unavailable Marquita Starkey MD Unavailable Roopa Almonte MD Unavailable [phone] Griffin Joshi MD Unavailable Rina Magallon RN Unavailable Paula Reza MD Primary Care Provider [phone] Griffin Joshi MD Unavailable Roopa Almonte MD Unavailable [facility] DO Unavailable Lydia Bernstein PA-C Unavailable Rosa Maria Love Unavailable [phone] Augustine Callaway MD Unavailable Paula Reza MD Unavailable Keerthi Miner APRN MANAGER RESOURCE Unavailable Herman, Shahida Cummings APRN MANAGER RESOURCE Unavailable Un available Porsha Michaels APRN MANAGER RESOURCE Unavailable [phone] Paula Reza MD Unavailable Herman, Shahida Cummings APRN MANAGER RESOURCE Unavailable Un available Daylin Ludwig Unavailable [phone] Laurel Velasquez MD Unavailable Daylin Ludwig Unavailable [phone] Paula Reza MD Unavailable Porsha Michaels APRN MANAGER RESOURCE Unavailable [phone] Laurel Velasquez MD Unavailable Herman, Shahida Cummings APRN MANAGER RESOURCE Unavailable Un available Marilin Montaño MANAGER RESOURCE Unavailable [phone] Esha Dewitt MD Unavailable [phone] Heather Mosquera MD Unavailable [phone] Paula Reza MD Unavailable Esha Dewitt MD Unavailable [phone] Andi Valdo Desouza PA-C Unavailable [phone] Nohelia AbarcaC Unavailable [phone] Heather Mosquera MD Unavailable Fawad York MD Unavailable [phone] Encounter Details Date Type Department Care Team [...] at once, please submit to [facility]. I can be contact by phone at [phone] Please rx medications, pharmacy t'd up. Please notify patient when done. Either mychart or via phone. Re-route to [facility] when [place] is done. Thank you. 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 Rule Out COVID-19 01/05/2021 01/05/2021 01/06/2021 12:57 PM CDT ESBL 01/05/2021 01/05/2021 Rule Out COVID-19 06/30/2021 06/30/2021 07/01/2021 9:34 AM CDT Rule Out COVID-19 07/25/2021 07/25/2021 07/25/2021 8:02 PM CDT documented as of this encounter Care Teams Investigation Specialist Relationship Specialty Start Date End Date Dixon Carson MD PCP - General 08/10/03 07/21/09 Mingo Aldana MD PCP - General Family Practice 07/22/09 07/12/14 Shahida Sutton APRN MANAGER RESOURCE PCP - General Nurse Practitioner 08/17/14 08/04/21 Shahida Sutton APRN MANAGER RESOURCE PCP - Assigned PCP 07/12/14 05/07/18 Paula Reza MD [address] [address] PCP - General Internal Medicine 08/05/21 Shahida Sutton APRN MANAGER RESOURCE Assigned PCP 07/12/14 09/30/21 Carolynn Ramon, KASIE Personal Advocate & Liaison (PAL) 12/17/18 08/07/21 [place] [address] [place] [address] Assigned Musculoskeletal Provider 12/26/19 08/21/20 Brady Lion MD Assigned Heart and Vascular Provider 12/26/19 08/14/20 Nima France PA-C [address] [place] [address] Assigned Surgical Provider 05/19/20 08/21/20 Camille Chandler PA-C [address] [facility] [address] [place] [address] Assigned Neuroscience Provider 05/19/20 09/14/20 Anabela Barakat APRN CNP [address] [place] [address] Assigned Heart and Vascular Provider 08/15/20 08/05/21 Nima France PA-C [address] [facility] [address] [place], [place] [address] Assigned Musculoskeletal Provider 08/22/20 11/13/20 [place] [address] [facility] [place] [address] Assigned Musculoskeletal Provider 11/14/20 12/04/20 Fawad York MD [address] [place] [address] Assigned Musculoskeletal Provider 12/05/20 02/05/21 Roopa Almonte MD [address] [facility] [address] [place] [address] Endocrinology, Diabetes, and Metabolism 01/19/21 [place] [address] [address] [place] [address] Assigned Musculoskeletal Provider 02/06/21 09/16/21 Maryse Burton PA-C [address] [place] [address] Physician Turntable Worker Dermatology 04/14/21 Marquita Starkey MD [address] [facility] [facility] [address] [place] [address] Internal Medicine 05/06/21 05/06/21 Roopa Almonte MD [address] [facility] [address] [place] [address] Hospitalist Endocrinology, Diabetes, and Metabolism 05/30/21 Griffin Joshi MD [address] [place] [address] Cardiovascular Disease 07/25/21 Rina Magallon, RN Lead Applied Mathematician 07/29/21 07/11/22 Griffin Joshi MD [address] [place] [address] Assigned Heart and Vascular Provider 08/06/21 10/07/21 Roopa Almonte MD [address] [place] [address] 200 [place] [address] Assigned Endocrinology Provider 09/10/21 [place] [address] [facility] [place] [address] Assigned Musculoskeletal Provider 09/17/21 10/14/21 Lydia Bernstein PA-C [address] [place] [address] Assigned PCP 10/01/21 10/21/21 Rosa Maria Love [facility] Community Health Worker 10/06/21 [place] [address] [address] [place], [place] [address] Assigned Musculoskeletal Provider 10/15/21 04/26/23 Paula Reza MD [address] [facility] [address] [place], [place] [address]17 Assigned PCP 10/22/21 12/23/21 Keerthi Miner APRN MANAGER RESOURCE [address] [place] [id number] Assigned Heart and Vascular Provider 10/08/21 02/10/22 Shahida Sutton APRN MANAGER RESOURCE Assigned PCP 12/24/21 03/24/22 Porsha Michaels APRN MANAGER RESOURCE [address] [place] [address] Assigned Heart and Vascular Provider 02/11/22 05/12/22 Paula Reza MD [address] [place], [place] [address] Assigned PCP 03/25/22 04/07/22 Shahida Sutton APRN MANAGER RESOURCE [address] [place] [address] Assigned PCP 04/08/22 06/30/22 Daylin Ludwig EP [facility] [address] [place] [address] Cardiac Rehabilitation Therapist 05/16/23 Laurel Velasquez MD [address] [place] [address] Assigned Heart and Vascular Provider 05/13/22 06/30/22 Daylin Ludwig, MIKI [facility] [address] [place] [address] Cardiac Rehabilitation Therapist 06/08/22 06/09/23 Paula Reza MD [address] [place], [place] [address] Assigned PCP 07/01/22 07/07/22 Porsha Michaels APRN MANAGER RESOURCE [address] [place] [address] Assigned Heart and Vascular Provider 07/01/22 07/07/22 Laurel Velasquez MD [address] [place], [place] [address] Assigned Heart and Vascular Provider 07/08/22 08/04/22 Shahida Sutton PROSTHETIC AIDE MANAGER RESOURCE Assigned PCP 07/08/22 09/08/22 Marilin Montaño, MANAGER RESOURCE [address] [place] [address] Assigned Heart and Vascular Provider 08/05/22 Esha Dewitt MD [address] [address] Gastroenterology 09/06/22 Heather Mosquera MD [address] [place] [address] Internal Medicine 09/06/22 Paula Reza MD [address] [facility] [address] [place] [address] Assigned PCP 09/09/22 01/05/23 Esha Dewitt MD [address] [place] [address] Assigned Gastroenterology Provider 09/23/22 Valdo Escamilla PA-C [address] [place] [address] Assigned Neuroscience Provider 09/30/22 Nohelia Abarca PA-C [address] [place], [place] [address] Physician Turntable Worker Gastroenterology 10/03/22 Heather Mosquera MD [address] [address] Assigned PCP 01/06/23 Fawad York MD [address] [place], [place] [address] Assigned Musculoskeletal Provider 04/27/23 06/25/23 documented as of this encounter
--- OUTSIDE RECORDS SUMMARY | 2023-09-21 08:38 | XMS_ITS | Encounter Summary ---
Author Organization [facility] Address [address] [place] [address] Care Team Providers Care Paraffin Plant Operator Name Role Phone Mingo Aldana MD Primary Car e Provider Herman, Shahida Cummings APRN FINANCIAL PLANNING ADVISER Primary Care Provi ford Unavailable Herman, Shahida Cummings APRN FINANCIAL PLANNING ADVISER Unavailable Un available Herman, Shahida Cummings APRN FINANCIAL PLANNING ADVISER Unavailable Un available Carolynn Ramon RN Unavailable [phone] Augustine Callaway MD Unavailable Brady Lion MD Unavailable Un available Nima France-C Unavailable [phone] Camille Chandler PA-C Unavailable [phone] Anabela Barakat APRN FINANCIAL PLANNING ADVISER Unavailable Nima France-C Unavailable [phone] Basilio Morillo DO Unavailable Fawad York MD Unavailable [phone] Roopa Almonte MD Unavailable [phone] Augustine Callaway MD Unavailable Maryse Burton PA-C Unavailable Marquita Starkey MD Unavailable [phone] Roopa Almonte MD Unavailable [phone] Griffin Joshi MD Unavailable Rina Magallon RN Unavailable [phone] Paula Reza MD Primary Care Provider [phone] Griffin Joshi MD Unavailable Roopa Almnote MD Unavailable [phone] [facility] hospital[facility]ilio win DO Unavailable Lydia Bernstein PA-C Unavailable Rosa Maria Love Unavailable [phone] Augustine Callaway MD Unavailable Paula Reza MD Unavailable Keerthi Miner APRN FINANCIAL PLANNING ADVISER Unavailable Herman, Shahida Cummings APRN FINANCIAL PLANNING ADVISER Unavailable Un available Porsha Michaels APRN FINANCIAL PLANNING ADVISER Unavailable [phone] Paula Reza MD Unavailable Herman, Shahida Cummings APRN FINANCIAL PLANNING ADVISER Unavailable Un available Daylin Ludwig Unavailable [phone] Laurel Velasquez MD Unavailable [phone] Daylin Ludwig Unavailable [phone] Paula Reza MD Unavailable Porsha Michaels APRN FINANCIAL PLANNING ADVISER Unavailable [phone] Laurel Velasquez MD Unavailable [phone] Herman, Shahida Cummings APRN FINANCIAL PLANNING ADVISER Unavailable Un available Marilin Montaño FINANCIAL PLANNING ADVISER Unavailable [phone] Esha Dewitt MD Unavailable [phone] Heather Mosquera MD Unavailable [phone] Paula Reza MD Unavailable Esha Dewitt MD Unavailable [phone] Valdo Escamilla PA-C Unavailable Nohelia Abarca PA-C Unavailable [phone] Heather Mosquera MD Unavailable Fawad York MD Unavailable Encounter Details Date Type Department Care Team (Late st Contact Info) Description 06/10/2010 [facility] [id number] [place] [id number] [place] [id number] [place] [address] Social History Tobacco Use Types Packs/Day [...] Out COVID-19 02/15/2020 02/15/2020 02/16/2020 2:32 PM 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 Rule Out COVID-19 01/05/2021 01/05/2021 01/06/2021 12:57 PM CDT ESBL 01/05/2021 01/05/2021 Rule Out COVID-19 06/30/2021 06/30/2021 07/01/2021 9:34 AM CDT Rule Out COVID-19 07/25/2021 07/25/2021 07/25/2021 8:02 PM CDT documented as of this encounter Care Teams Paraffin Plant Operator Relationship Specialty Start Date End Date Mingo Aldana MD PCP - General Family Practice 07/22/09 07/12/14 Shahida Sutton APRN FINANCIAL PLANNING ADVISER PCP - General Nurse Practitioner 08/17/14 08/04/21 Shahida Sutton APRN FINANCIAL PLANNING ADVISER PCP - Assigned PCP 07/12/14 05/07/18 Paula Reza MD [address] [place], [place] [id number] PCP - General Internal Medicine 08/05/21 Shahida Sutton APRN FINANCIAL PLANNING ADVISER Assigned PCP 07/12/14 09/30/21 Carolynn Ramon, KASIE Personal Advocate & Liaison (PAL) 12/17/18 08/07/21 [place] [address] [place], [place] [address] Assigned Musculoskeletal Provider 12/26/19 08/21/20 Brady Lion MD Assigned Heart and Vascular Provider 12/26/19 08/14/20 Nima France PA-C [address] [place] [address] Assigned Surgical Provider 05/19/20 08/21/20 Camille Chandler PA-C [address] [place] [id number] Assigned Neuroscience Provider 05/19/20 09/14/20 Anabela Barakat APRN CNP [address] [place] [address] Assigned Heart and Vascular Provider 08/15/20 08/05/21 Nima France PA-C [address] [facility] [address] [place] [address] Assigned Musculoskeletal Provider 08/22/20 11/13/20 [place] [address] [place] [address] Assigned Musculoskeletal Provider 11/14/20 12/04/20 Fawad York MD [address] [place] [address] Assigned Musculoskeletal Provider 12/05/20 02/05/21 Roopa Almonte MD [address] [facility] [facility] [address] [place] [address] Endocrinology, Diabetes, and Metabolism 01/19/21 [place] [address] [facility] [address] [place] [address] Assigned Musculoskeletal Provider 02/06/21 09/16/21 Maryse Burton PA-C [address] [place] [address] Physician Assistant Art Director Dermatology 04/14/21 Marquita Starkey MD [address] [facility] [address] [place] [address] Internal Medicine 05/06/21 05/06/21 Roopa Almonte MD [address] [facility] [address] [place] [address] Hospitalist Endocrinology, Diabetes, and Metabolism 05/30/21 Griffin Joshi MD [address] [place] [address] Cardiovascular Disease 07/25/21 Rina Magallon, RN Lead Realtime Reporter 07/29/21 07/11/22 Griffin Joshi MD [address] [place] [id number] Assigned Heart and Vascular Provider 08/06/21 10/07/21 Roopa Almonte MD [address] [facility] [address] [place], [place] [address] Assigned Endocrinology Provider 09/10/21 [place] [address] [facility] [place] [address] Assigned Musculoskeletal Provider 09/17/21 10/14/21 Lydia Bernstein PA-C [address] [place] [address] Assigned PCP 10/01/21 10/21/21 Rosa Maria Love [facility] Community Health Worker 10/06/21 [place] [address] [place] [address] Assigned Musculoskeletal Provider 10/15/21 04/26/23 Paula Reza MD [address] [place] [address] Assigned PCP 10/22/21 12/23/21 Keerthi Minre APRN FINANCIAL PLANNING ADVISER [address] [place] [id number] Assigned Heart and Vascular Provider 10/08/21 02/10/22 Shahida Sutton APRN FINANCIAL PLANNING ADVISER Assigned PCP 12/24/21 03/24/22 Porsha Michaels APRN FINANCIAL PLANNING ADVISER [address] [place] [address] Assigned Heart and Vascular Provider 02/11/22 05/12/22 Paula Reza MD [address] [place] [address] Assigned PCP 03/25/22 04/07/22 Shahida Sutton APRN FINANCIAL PLANNING ADVISER [address] [place] [address] Assigned PCP 04/08/22 06/30/22 Daylin Ludwig EP [facility] [address] [place] [address] Cardiac Rehabilitation Therapist 05/16/23 Laurel Velasquez MD [address] [place] [address] Assigned Heart and Vascular Provider 05/13/22 06/30/22 Daylin Ludwig EP [facility] [address] [place] [address] Cardiac Rehabilitation Therapist 06/08/22 06/09/23 Paula Reza MD [address] [facility] [address] [place], [place] [address] Assigned PCP 07/01/22 07/07/22 Porsha Michaels APRN FINANCIAL PLANNING ADVISER [address] [place] [address] Assigned Heart and Vascular Provider 07/01/22 07/07/22 Laurel Velasquez MD [address] [place] [address] Assigned Heart and Vascular Provider 07/08/22 08/04/22 Shahida Sutton APRN FINANCIAL PLANNING ADVISER Assigned PCP 07/08/22 09/08/22 Marilin Montaño, FINANCIAL PLANNING ADVISER [address] [place] [address] Assigned Heart and Vascular Provider 08/05/22 Esha Dewitt MD [address] [facility] 36 [place], [place] [address] Gastroenterology 09/06/22 Heather Mosquera MD [address] [place] [address] Internal Medicine 09/06/22 Paula Reza MD [address] [place] [address] Assigned PCP 09/09/22 01/05/23 Esha Dewitt MD [address] [facility] 36 [place], [place] [address] Assigned Gastroenterology Provider 09/23/22 Valdo Escamilla PA-C [address] [facility] [address] [place], [place] [address] Assigned Neuroscience Provider 09/30/22 Nohelia Abarca PA-C [address] [place], [place] [address] Physician Assistant Art Director Gastroenterology 10/03/22 Heather Mosquera MD [address] [place], [place] [address] Assigned PCP 01/06/23 Fawad York MD [address] [place], [place] [address] Assigned Musculoskeletal Provider 04/27/23 06/25/23 documented as of this encounter
--- OUTSIDE RECORDS SUMMARY | 2023-09-21 08:38 | XMS_ITS | Encounter Summary ---
Author Organization [facility] Address [address] [place] [address] Care Team Providers Care Director Of Cath Lab Name Role Phone Mingo Aldana MD Primary Car e Provider Herman, Shahida Cummings APRN LEVELER HELPER Primary Care Provi ford Unavailable Herman, Shahida Cummings APRN LEVELER HELPER Unavailable Un available Herman, Shahida Cummings APRN LEVELER HELPER Unavailable Un available Carolynn Ramon RN Unavailable [phone] Augustine Callaway MD Unavailable Brady Lion MD Unavailable Un available Nima France-C Unavailable [phone] Camille Chandler PA-C Unavailable [phone] Anabela Barakat APRN LEVELER HELPER Unavailable Nima France-C Unavailable [phone] Basilio Morillo DO Unavailable Fawad York MD Unavailable [phone] Roopa Almonte MD Unavailable [phone] Augustine Callaway MD Unavailable Maryse Burton PA-C Unavailable Marquita Starkey MD Unavailable [phone] Roopa Almonte MD Unavailable [phone] Griffin Joshi MD Unavailable Rina Magallon RN Unavailable [phone] Paula Reza MD Primary Care Provider [phone] Griffin Joshi MD Unavailable Roopa Almonte MD Unavailable [phone] [facility] win DO Unavailable Lydia Bernstein PA-C Unavailable Rosa Maria Love Unavailable [phone] Augustine Callaway MD Unavailable Paula Reza MD Unavailable Keerthi Miner APRN LEVELER HELPER Unavailable Herman, Shahida Cummings APRN LEVELER HELPER Unavailable Un available Porsha Michaels APRN LEVELER HELPER Unavailable [phone] Paula Reza MD Unavailable Herman, Shahida Cummings APRN LEVELER HELPER Unavailable Un available Daylin Ludwig Unavailable [phone] Laurel Velasquez MD Unavailable [phone] Daylin Ludwig Unavailable [phone] Paula Reza MD Unavailable Porsha Michaels APRN LEVELER HELPER Unavailable [phone] Laurel Velasquez MD Unavailable [phone] Herman, Shahida Cummings APRN LEVELER HELPER Unavailable Un available Marilin Montaño LEVELER HELPER Unavailable [phone] Esha Dewitt MD Unavailable [phone] Heather Mosquera MD Unavailable Paula Reza MD Unavailable Esha Dewitt MD Unavailable [phone] Valdo Escamilla PA-C Unavailable Nohelia Abarca PA-C Unavailable [phone] Heather Mosquera MD Unavailable Fawad York MD Unavailable [phone] Reason for Visit * Reason Onset Date Comments Refill Request 10/19/2009 Encounter Details Date Type Department Care Team (Late st Contact Info) Description 10/19/2009 MyC Refill [address] [address] Mingo Aldana MD [facility] [address] [place] [address] Refill Request Social History Tobacco [...] Out COVID-19 02/15/2020 02/15/2020 02/16/2020 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 Rule Out COVID-19 01/05/2021 01/05/2021 01/06/2021 12:57 PM CDT ESBL 01/05/2021 01/05/2021 Rule Out COVID-19 06/30/2021 06/30/2021 07/01/2021 9:34 AM CDT Rule Out COVID-19 07/25/2021 07/25/2021 07/25/2021 8:02 PM CDT documented as of this encounter Care Teams Director Of Cath Lab Relationship Specialty Start Date End Date Mingo Aldana MD PCP - General Family Practice 07/22/09 07/12/14 Shahida Sutton APRN LEVELER HELPER PCP - General Nurse Practitioner 08/17/14 08/04/21 Shahida Sutton APRN LEVELER HELPER PCP - Assigned PCP 07/12/14 05/07/18 Paula Reza MD [address] [place], [place] [address] PCP - General Internal Medicine 08/05/21 Shahida Sutton APRN LEVELER HELPER Assigned PCP 07/12/14 09/30/21 Carolynn Ramon, KASIE Personal Advocate & Liaison (PAL) 12/17/18 08/07/21 [place] [address] [place] [address] Assigned Musculoskeletal Provider 12/26/19 08/21/20 Brady Lion MD Assigned Heart and Vascular Provider 12/26/19 08/14/20 Nima France PA-C [address] [place] [address] Assigned Surgical Provider 05/19/20 08/21/20 Camille Chandler PA-C [address] [facility] [address] [place] [address] Assigned Neuroscience Provider 05/19/20 09/14/20 Anabela Barakat APRN CNP [address] [place] [address] Assigned Heart and Vascular Provider 08/15/20 08/05/21 Nima France PA-C [address] [facility] [address] [place] [address] Assigned Musculoskeletal Provider 08/22/20 11/13/20 [place] [address] [place], [place] [address] Assigned Musculoskeletal Provider 11/14/20 12/04/20 Fawad York MD [address] [place], [place] [address] Assigned Musculoskeletal Provider 12/05/20 02/05/21 Roopa Almonte MD [address] [facility] 200 [place] [address] Endocrinology, Diabetes, and Metabolism 01/19/21 [place] [address] [facility] [address] [place] [address] Assigned Musculoskeletal Provider 02/06/21 09/16/21 Maryse Burton PA-C [address] [facility] [place] [address] Physician Shorts Sifter Dermatology 04/14/21 Marquita Starkey MD [address] [facility] 200 [place] [address] Internal Medicine 05/06/21 05/06/21 Roopa Almonte MD [address] [facility] 200 [place] [address] Hospitalist Endocrinology, Diabetes, and Metabolism 05/30/21 Griffin Joshi MD [address] [place] [address] Cardiovascular Disease 07/25/21 Rina Magallon, RN Lead Sales Communications Manager 07/29/21 07/11/22 Griffin Joshi MD [address] [place] [address] Assigned Heart and Vascular Provider 08/06/21 10/07/21 Roopa Almonte MD [address] [facility] 200 [place] [address] Assigned Endocrinology Provider 09/10/21 [place] [address] [facility] [place] [address] Assigned Musculoskeletal Provider 09/17/21 10/14/21 Lydia Bernstein PA-C [address] [place] [address] Assigned PCP 10/01/21 10/21/21 Rosa Maria Love, [facility] Community Health Worker 10/06/21 [place] [address] [place] [address] Assigned Musculoskeletal Provider 10/15/21 04/26/23 Paula Reza MD [address] [place] [address] Assigned PCP 10/22/21 12/23/21 Keerthi Miner APRN LEVELER HELPER [address] [place] [address] Assigned Heart and Vascular Provider 10/08/21 02/10/22 Shahida Sutton APRN LEVELER HELPER Assigned PCP 12/24/21 03/24/22 Porsha Michaels APRN LEVELER HELPER [address] [place] [address] Assigned Heart and Vascular Provider 02/11/22 05/12/22 Paula Reza MD [address] [facility] [address] [place] [address] Assigned PCP 03/25/22 04/07/22 Shahida Sutton APRN LEVELER HELPER [address] [place] [address] Assigned PCP 04/08/22 06/30/22 Daylin Ludwig EP [facility] [address] [place] [address] Cardiac Rehabilitation Therapist 05/16/23 Laurel Velasquez MD [address] [place] [address] Assigned Heart and Vascular Provider 05/13/22 06/30/22 Daylin Ludwig EP [facility] [address] [place] [address] Cardiac Rehabilitation Therapist 06/08/22 06/09/23 Paula Reza MD [address] [facility] 200 [place] [address] Assigned PCP 07/01/22 07/07/22 Porsha Michaels APRN LEVELER HELPER [address] [place] [address] Assigned Heart and Vascular Provider 07/01/22 07/07/22 Laurel Velasquez MD [address] [place] [address] Assigned Heart and Vascular Provider 07/08/22 08/04/22 Shahida Sutton APRN LEVELER HELPER Assigned PCP 07/08/22 09/08/22 Marilin Montaño, LEVELER HELPER [address] [place] [address] Assigned Heart and Vascular Provider 08/05/22 Esha Dewitt MD [address] [place] [address] 36 [place], [place] [address] Gastroenterology 09/06/22 Heather Mosquera MD [address] [place] [address] Internal Medicine 09/06/22 Paula Reza MD [address] [facility] 200 [place] [address] Assigned PCP 09/09/22 01/05/23 Esha Dewitt MD [address] [facility] 36 [place] [address] Assigned Gastroenterology Provider 09/23/22 Valdo Escamilla PA-C [address] [facility] [address] [place] [address] Assigned Neuroscience Provider 09/30/22 Nohelia Abarca PA-C [address] [place] [address] Physician Shorts Sifter Gastroenterology 10/03/22 Heather Mosquera MD [address] [place] [address] Assigned PCP 01/06/23 Fawad York MD [address] [place], [place] [address] Assigned Musculoskeletal Provider 04/27/23 06/25/23 documented as of this encounter
--- OUTSIDE RECORDS SUMMARY | 2023-09-21 08:38 | XMS_ITS | Encounter Summary ---
Author Organization [facility] Address [address] [place] [address] Care Team Providers Care Battalion Chief Name Role Phone Mingo Aldana MD Primary Car e Provider Herman, Shahida Cummings APRN TECHNICAL SUPPORT ENGINEER Primary Care Provi ford Unavailable Herman, Shahida Cummings APRN TECHNICAL SUPPORT ENGINEER Unavailable Un available Herman, Shahida Cummings APRN TECHNICAL SUPPORT ENGINEER Unavailable Un available Carolynn Ramon RN Unavailable [phone] uAgustine Callaway MD Unavailable Brady Lion MD Unavailable Un available Nima France-C Unavailable [phone] Camille Chandler PA-C Unavailable [phone] Anabela Barakat APRN TECHNICAL SUPPORT ENGINEER Unavailable Nima France-C Unavailable [phone] Basilio Morillo DO Unavailable [phone] Fawad York MD Unavailable [phone] Roopa Almonte MD Unavailable [phone] Augustine Callaway MD Unavailable Maryse Burton PA-C Unavailable Marquita Starkey MD Unavailable [phone] Roopa Almonte MD Unavailable [phone] Griffin Joshi MD Unavailable Rina Magallon RN Unavailable [phone] Paula Reza MD Primary Care Provider [phone] Griffin Joshi MD Unavailable Roopa Almonte MD Unavailable [phone] [facility] island[facility]ilio win DO Unavailable Lydia Bernstein PA-C Unavailable Rosa Maria Love Unavailable [phone] Augustine Callaway MD Unavailable Paula Reza MD Unavailable Keerthi Miner APRN TECHNICAL SUPPORT ENGINEER Unavailable Herman, Shahida Cummings APRN TECHNICAL SUPPORT ENGINEER Unavailable Un available Porsha Michaels APRN TECHNICAL SUPPORT ENGINEER Unavailable [phone] Paula Reza MD Unavailable Herman, Shahida Cummings APRN TECHNICAL SUPPORT ENGINEER Unavailable Un available Daylin Ludwig Unavailable [phone] Laurel Velasquez MD Unavailable [phone] Daylin Ludwig Unavailable [phone] Paula Reza MD Unavailable Porsha Michaels APRN TECHNICAL SUPPORT ENGINEER Unavailable [phone] Laurel Velasquez MD Unavailable [phone] Herman, Shahida Cummings APRN TECHNICAL SUPPORT ENGINEER Unavailable Un available Marilin Montaño TECHNICAL SUPPORT ENGINEER Unavailable [phone] Esha Dewitt MD Unavailable [phone] Heather Mosquera MD Unavailable Paula Reza MD Unavailable Esha Dewitt MD Unavailable [phone] Valdo Escamilla PA-C Unavailable [phone] Nohelia Abarca PA-C Unavailable [phone] Heather Mosquera MD Unavailable Fawad York MD Unavailable Encounter Details Date Type Department Care Team (Late st Contact Info) Description 06/06/2010 [facility] [id number] [place] [id number] [place] [id number] [place] [address] Social History Tobacco Use Types Packs/Day [...] Out COVID-19 02/15/2020 02/15/2020 02/16/2020 2:32 PM CLINICAL SUPPORT TECH Rule Out COVID-19 01/05/2021 01/05/2021 01/06/2021 12:57 PM CDT ESBL 01/05/2021 01/05/2021 Rule Out COVID-19 06/30/2021 06/30/2021 07/01/2021 9:34 AM CDT Rule Out COVID-19 07/25/2021 07/25/2021 07/25/2021 8:02 PM CDT documented as of this encounter Care Teams Battalion Chief Relationship Specialty Start Date End Date Mingo Aldana MD PCP - General Family Practice 07/22/09 07/12/14 Shahida Sutton APRN TECHNICAL SUPPORT ENGINEER PCP - General Nurse Practitioner 08/17/14 08/04/21 Shahida Sutton APRN TECHNICAL SUPPORT ENGINEER PCP - Assigned PCP 07/12/14 05/07/18 Paula Reza MD [address] [place], [place] [address] PCP - General Internal Medicine 08/05/21 Shahida Sutton APRN TECHNICAL SUPPORT ENGINEER Assigned PCP 07/12/14 09/30/21 Carolynn Ramon, KASIE Personal Advocate & Liaison (PAL) 12/17/18 08/07/21 [place] [address] [place], [place] [address] Assigned Musculoskeletal Provider 12/26/19 08/21/20 Brady Lion MD Assigned Heart and Vascular Provider 12/26/19 08/14/20 Nima France PA-C [address] [place] [address] Assigned Surgical Provider 05/19/20 08/21/20 Camille Chandler PA-C [address] [place] [address] Assigned Neuroscience Provider 05/19/20 09/14/20 Anabela Barakat APRN CNP [address] [place] [address] Assigned Heart and Vascular Provider 08/15/20 08/05/21 Nima France PA-C 6545 [facility] 450 [place] [address] Assigned Musculoskeletal Provider 08/22/20 11/13/20 [place] [address] [place] [address] Assigned Musculoskeletal Provider 11/14/20 12/04/20 Fawad York MD [address] [place] [address] Assigned Musculoskeletal Provider 12/05/20 02/05/21 Roopa Almonte MD [address] [facility] 200 [place] [address] Endocrinology, Diabetes, and Metabolism 01/19/[address] [place] [address] [facility] [address] [place] [address] Assigned Musculoskeletal Provider 02/06/21 09/16/21 Maryse Burton PA-C [address] [place] [address] Physician Plant Breeder Dermatology 04/14/21 Marquita Starkey MD [address] [facility] 200 [place] [address] Internal Medicine 05/06/21 05/06/21 Roopa Almonte MD [address] [facility] 200 [place] [address] Hospitalist Endocrinology, Diabetes, and Metabolism 05/30/21 Griffin Joshi MD [address] [place] [address] Cardiovascular Disease 07/25/21 Rina Magallon, RN Lead Tape Rules Printing 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 07/29/21 07/11/22 Griffin Joshi MD [address] [place] [address] Assigned Heart and Vascular Provider 08/06/21 10/07/21 Roopa Almonte MD [address] [facility] [address] [place], [place] [address] Assigned Endocrinology Provider 09/10/21 [place] [address] [facility] [place] [address] Assigned Musculoskeletal Provider 09/17/21 10/14/21 Lydia Bernstein PA-C [address] [place] [address] Assigned PCP 10/01/21 10/21/21 Rosa Maria Love [facility] Community Health Worker 10/06/21 [place] [address] [place] [address] Assigned Musculoskeletal Provider 10/15/21 04/26/23 Paula Reza MD [address] [place] [address] Assigned PCP 10/22/21 12/23/21 Keerthi Miner APRN TECHNICAL SUPPORT ENGINEER [address] [place] [id number] Assigned Heart and Vascular Provider 10/08/21 02/10/22 Shahida Sutton APRN TECHNICAL SUPPORT ENGINEER Assigned PCP 12/24/21 03/24/22 Porsha Michaels APRN TECHNICAL SUPPORT ENGINEER [address] [place] [address] Assigned Heart and Vascular Provider 02/11/22 05/12/22 Paula Reza MD [address] [place] [address] Assigned PCP 03/25/22 04/07/22 Shahida Sutton APRN TECHNICAL SUPPORT ENGINEER [address] [place] [address] Assigned PCP 04/08/22 06/30/22 Daylin Ludwig EP [facility] [address] [place] [address] Cardiac Rehabilitation Therapist 05/16/23 Laurel Velasquez MD [address] [place] [address] Assigned Heart and Vascular Provider 05/13/22 06/30/22 Daylin Ludwig EP [facility] [address] [place] [address] Cardiac Rehabilitation Therapist 06/08/22 06/09/23 Paula Reza MD [address] [facility] [address] [place], [place] [address] Assigned PCP 07/01/22 07/07/22 Porsha Michaels APRN TECHNICAL SUPPORT ENGINEER [address] [place] [address] Assigned Heart and Vascular Provider 07/01/22 07/07/22 Laurel Velasquez MD [address] [place] [address] Assigned Heart and Vascular Provider 07/08/22 08/04/22 Shahida Sutton APRN TECHNICAL SUPPORT ENGINEER Assigned PCP 07/08/22 09/08/22 Marilin Montaño, TECHNICAL SUPPORT ENGINEER [address] [place] [address] Assigned Heart and Vascular Provider 08/05/22 Esha Dewitt MD [address] [facility] 36 [place], [place] [address] Gastroenterology 09/06/22 Heather Mosquera MD [address] [place] [address] Internal Medicine 09/06/22 Paula Reza MD [address] [place] [address] Assigned PCP 09/09/22 01/05/23 Esha Dewitt MD [address] [facility] 36 [place], [place] [address] Assigned Gastroenterology Provider 09/23/22 Valdo Escamilla PA-C [address] [facility] [address] [place], [place] [address] Assigned Neuroscience Provider 09/30/22 Nohelia Abarca PA-C [address] [place], [place] [address] Physician Plant Breeder Gastroenterology 10/03/22 Heather Mosquera MD [address] [place], [place] [address] Assigned PCP 01/06/23 Fawad York MD [address] [place], [place] [address] Assigned Musculoskeletal Provider 04/27/23 06/25/23 documented as of this encounter
--- OUTSIDE RECORDS SUMMARY | 2023-09-21 08:39 | XMS_ITS | Encounter Summary ---
Author Organization [facility] Address [address] [place] [address] Care Team Providers Care Porter Baggage Name Role Phone Dixon Carson MD Primary Care Provider Mingo Aldana MD Primary Car e Provider Shahida Sutton FINANCIAL REPORT SERVICE SALES AGENT SCALLOP CUTTER MACHINE Primary Care Provi ford Unavailable Herman, Shahida Cummings APRN SCALLOP CUTTER MACHINE Unavailable Un available Herman, Shahida Cummings APRN SCALLOP CUTTER MACHINE Unavailable Un available Carolynn Ramon RN Unavailable [phone] Augustine Callaway MD Unavailable Brady Lion MD Unavailable Un available Nima FranceC Unavailable [phone] Camille Chandler PA-C Unavailable [phone] Anabela Barakat APRN SCALLOP CUTTER MACHINE Unavailable Nima FranceC Unavailable [phone] Basilio Morillo DO Unavailable [phone] Fawad York MD Unavailable [phone] Roopa Almonte MD Unavailable [phone] Augustine Callaway MD Unavailable Maryse Burton [...] Paula Reza MD Unavailable Keerthi Miner APRN SCALLOP CUTTER MACHINE Unavailable Herman, Shahida Cummings APRN SCALLOP CUTTER MACHINE Unavailable Un available Porsha Michaels APRN SCALLOP CUTTER MACHINE Unavailable [phone] Paula Reza MD Unavailable Herman, Shahida Cummings APRN SCALLOP CUTTER MACHINE Unavailable Un available Daylin Ludwig Unavailable [phone] Laurel Velasquez MD Unavailable Daylin Ludwig Unavailable [phone] Paula Reza MD Unavailable Porsha Michaels APRN SCALLOP CUTTER MACHINE Unavailable [phone] Laurel Velasquez MD Unavailable Herman, Shahida Cummings APRN SCALLOP CUTTER MACHINE Unavailable Un available Marilin Montaño SCALLOP CUTTER MACHINE Unavailable [phone] Esha Dewitt MD Unavailable [phone] Heather Mosquera MD Unavailable [phone] Paula Reza MD Unavailable Esha Dewitt MD Unavailable [phone] Ayserick Valdo Desouza PA-C Unavailable Nohelia AbarcaC Unavailable [phone] Heather Mosquera MD Unavailable Fawad York MD Unavailable [phone] Reason for Visit * Reason Onset Date Comments MyChart Communication 12/11/2007 refill req uest: krish Encounter Details Date Type Department Care Team (Late st Contact Info) Description 12/11/[address] [address] Dixon Carson MD [address] [address] MyChart Communication (refill request: all... Social History [...] Aldana MD] Preferred pharmacy: [facility] Comment: Resuming this per Dr Carson's instructions, need refill documented in this encounter Plan of Treatment Not on file documented as of this encounter Visit Diagnoses Diagnosis GENERALIZED ANXIETY DIS- Primary Generalized anxiety disorder documented in this encounter Additional Health Concerns Infection Onset Date Last Indicated Resolved Time Rule Out COVID-19 02/15/2020 02/15/2020 02/16/2020 2:32 PM ARTIFICIAL LOG MACHINE OPERATOR Rule Out COVID-19 01/05/2021 01/05/2021 01/06/2021 12:57 PM CDT ESBL 01/05/2021 01/05/2021 Rule Out COVID-19 06/30/2021 06/30/2021 07/01/2021 9:34 AM CDT Rule Out COVID-19 07/25/2021 07/25/2021 07/25/2021 8:02 PM CDT documented as of this encounter Care Teams Porter Baggage Relationship Specialty Start Date End Date Dixon Carson MD PCP - General 08/10/03 07/21/09 Mingo Aldana MD PCP - General Family Practice 07/22/09 07/12/14 Shahida Sutton APRN SCALLOP CUTTER MACHINE PCP - General Nurse Practitioner 08/17/14 08/04/21 Shahida Sutton APRN SCALLOP CUTTER MACHINE PCP - Assigned PCP 07/12/14 05/07/18 Paula Reza MD [address] [facility] 200 [place] [address] PCP - General Internal Medicine 08/05/21 Shahida Sutton APRN SCALLOP CUTTER MACHINE Assigned PCP 07/12/14 09/30/21 Carolynn Ramon RN Personal Advocate & Liaison (PAL) 12/17/18 08/07/21 [place] [address] [place] [address] Assigned Musculoskeletal Provider 12/26/19 08/21/20 Brady Lion MD Assigned Heart and Vascular Provider 12/26/19 08/14/20 Nima France PA-C [address] [place] [address] Assigned Surgical Provider 05/19/20 08/21/20 Camille Chandler PA-C [address] [facility] [address] [place] [address] Assigned Neuroscience Provider 05/19/20 09/14/20 Anabela Barakat APRN SCALLOP CUTTER MACHINE [address] [place] [address] Assigned Heart and Vascular Provider 08/15/20 08/05/21 Nima France PA-C [address] [place] [address] Assigned Musculoskeletal Provider 08/22/20 11/13/20 [place] [address] [facility] [place] [address] Assigned Musculoskeletal Provider 11/14/20 12/04/20 Fawad York MD [address] [place] [address] Assigned Musculoskeletal Provider 12/05/20 02/05/21 Roopa Almonte MD [address] [facility] 200 [place] [address] Endocrinology, Diabetes, and Metabolism 01/19/21 [place] [address] [facility] 300 [place] [address] Assigned Musculoskeletal Provider 02/06/21 09/16/21 Maryse Burton, PA-C [address] [place] [address] Physician Deckhand Oyster Dredge Dermatology 04/14/21 Marquita Starkey MD [address] [facility] 200 [place] [address] Internal Medicine 05/06/21 05/06/21 Roopa Almonte MD [address] [facility] 200 [place] [address] Hospitalist Endocrinology, Diabetes, and Metabolism 05/30/21 Griffin Joshi MD [address] [facility] [address] [place] [address] Cardiovascular Disease 07/25/21 Rina Magallon, RN Lead Latex Fashions Designer 07/29/21 07/11/22 Griffin Joshi MD [address] [facility] [address] [place] [address] Assigned Heart and Vascular Provider 08/06/21 10/07/21 Roopa Almonte MD [address] [facility] [address] [place], [place] [address] Assigned Endocrinology Provider 09/10/21 [place] [address] [facility] [place] [address] Assigned Musculoskeletal Provider 09/17/21 10/14/21 Lydia Bernstein, TRACEY [address] [facility] [address] [place] [address] Assigned PCP 10/01/21 10/21/21 Rosa Maria Love Cristina Community Health Worker 10/06/21 [place] [address] [facility] [address] [place] [address] Assigned Musculoskeletal Provider 10/15/21 04/26/23 Paula Reza MD [address] [facility] 200 [place] [address] Assigned PCP 10/22/21 12/23/21 Keerthi Miner APRN SCALLOP CUTTER MACHINE [address] [place] [address] Assigned Heart and Vascular Provider 10/08/21 02/10/22 Shahida Sutton APRN SCALLOP CUTTER MACHINE Assigned PCP 12/24/21 03/24/22 Porsha Michaels APRN SCALLOP CUTTER MACHINE [address] [place] [address] Assigned Heart and Vascular Provider 02/11/22 05/12/22 Paula Reza MD [address] [place] [address] Assigned PCP 03/25/22 04/07/22 Shahida Sutton APRN SCALLOP CUTTER MACHINE [address] [place] [address] Assigned PCP 04/08/22 06/30/22 Daylin Ludwig, EP [facility] [address] [place] [address] Cardiac Rehabilitation Therapist 05/16/23 Laurel Velasquez MD [address] [place] [address] Assigned Heart and Vascular Provider 05/13/22 06/30/22 Daylin Ludwig, EP [facility] [address] [place] [address] Cardiac Rehabilitation Therapist 06/08/22 06/09/23 Paula Reza MD [address] [place] [address] Assigned PCP 07/01/22 07/07/22 Porsha Michaels APRN SCALLOP CUTTER MACHINE [address] [place] [address] Assigned Heart and Vascular Provider 07/01/22 07/07/22 Laurel Velasquez MD [address] [place] [address] Assigned Heart and Vascular Provider 07/08/22 08/04/22 Shahida Sutton APRN SCALLOP CUTTER MACHINE Assigned PCP 07/08/22 09/08/22 Marilin Montaño, SCALLOP CUTTER MACHINE [address] [place] [address] Assigned Heart and Vascular Provider 08/05/22 Esha Dewitt MD [address] [address] Gastroenterology 09/06/22 Heather Mosquera MD [address] [place] [address] Internal Medicine 09/06/22 Paula Reza MD [address] [place], [place] [address] Assigned PCP 09/09/22 01/05/23 Esha Dewitt MD 420 [facility] 36 [place] [address] Assigned Gastroenterology Provider 09/23/22 Valdo Escamilla PA-C [address] [facility] [address] [place] [address] Assigned Neuroscience Provider 09/30/22 Nohelia Abarca PA-C [address] [place] [address] Physician Deckhand Oyster Dredge Gastroenterology 10/03/22 Heather Mosquera MD [address] [place] [address] Assigned PCP 01/06/23 Fawad York MD [address] [place], [place] [address] Assigned Musculoskeletal Provider 04/27/23 06/25/23 documented as of this encounter
--- OUTSIDE RECORDS SUMMARY | 2023-09-21 08:39 | XMS_ITS | Encounter Summary ---
Author Organization [facility] Address [address] [place] [address] Care Team Providers Care Crucible Furnace Tender Name Role Phone Dixon Carson MD Primary Care Provider Mingo Aldana MD Primary Car e Provider Shahida Sutton PE MANAGER ASSISTANT PROFESSOR OF BIOLOGY Primary Care Provi ford Unavailable Herman, Shahida Cummings APRN ASSISTANT PROFESSOR OF BIOLOGY Unavailable Un available Herman, Shahida Cummings APRN ASSISTANT PROFESSOR OF BIOLOGY Unavailable Un available Carolynn Ramon RN Unavailable [phone] Augustine Callaway MD Unavailable Brady Lion MD Unavailable Un available Nima FranceC Unavailable [phone] Camille Chandler PA-C Unavailable [phone] Anabela Barakat APRN ASSISTANT PROFESSOR OF BIOLOGY Unavailable Nima FranceC Unavailable [phone] Basilio Morillo DO Unavailable [phone] Fawad York MD Unavailable [phone] Roopa Almonte MD Unavailable [phone] Augustine Callaway MD Unavailable Maryse Burton [...] Paula Reza MD Unavailable Keerthi Miner APRN ASSISTANT PROFESSOR OF BIOLOGY Unavailable Herman, Shahida Cummings APRN ASSISTANT PROFESSOR OF BIOLOGY Unavailable Un available Porsha Michaels APRN ASSISTANT PROFESSOR OF BIOLOGY Unavailable [phone] Paula Reza MD Unavailable Herman, Shahida Cummings APRN ASSISTANT PROFESSOR OF BIOLOGY Unavailable Un available Daylin Ludwig Unavailable [phone] Laurel Velasquez MD Unavailable Daylin Ludwig Unavailable [phone] Paula Reza MD Unavailable Porsha Michaels APRN ASSISTANT PROFESSOR OF BIOLOGY Unavailable [phone] Laurel Velasquez MD Unavailable Herman, Shahida Cummings APRN ASSISTANT PROFESSOR OF BIOLOGY Unavailable Un available Marilin Montaño ASSISTANT PROFESSOR OF BIOLOGY Unavailable Esha Dewitt MD Unavailable [phone] Heather Mosquera MD Unavailable [phone] Paula Reza MD Unavailable Esha Dewitt MD Unavailable [phone] Valdo Escamilla PA-C Unavailable [phone] Nohelia Abarca-C Unavailable [phone] Heather Mosquera MD Unavailable [phone] Fawad York MD Unavailable [phone] Encounter Details Date Type Department Care Team [...] Out COVID-19 02/15/2020 02/15/2020 02/16/2020 2:[address] SQL DEVELOPER Rule Out COVID-19 01/05/2021 01/05/2021 01/06/2021 12:57 PM CDT ESBL 01/05/2021 01/05/2021 Rule Out COVID-19 06/30/2021 06/30/2021 07/01/2021 9:34 AM CDT Rule Out COVID-19 07/25/2021 07/25/2021 07/25/2021 8:02 PM CDT documented as of this encounter Care Teams Crucible Furnace Tender Relationship Specialty Start Date End Date Dixon Carson MD PCP - General 08/10/03 07/21/09 Mingo Aldana MD PCP - General Family Practice 07/22/09 07/12/14 Shahida Sutton APRN ASSISTANT PROFESSOR OF BIOLOGY PCP - General Nurse Practitioner 08/17/14 08/04/21 Shahida Sutton APRN ASSISTANT PROFESSOR OF BIOLOGY PCP - Assigned PCP 07/12/14 05/07/18 Paula Reza MD [address] [place] [address] PCP - General Internal Medicine 08/05/21 Shahida Sutton APRN ASSISTANT PROFESSOR OF BIOLOGY Assigned PCP 07/12/14 09/30/21 Carolynn Ramon, KASIE Personal Advocate & Liaison (PAL) 12/17/18 08/07/21 [place] [address] [place] [address] Assigned Musculoskeletal Provider 12/26/19 08/21/20 Brady Lion MD Assigned Heart and Vascular Provider 12/26/19 08/14/20 Nima France PA-C [address] [place] [id number] Assigned Surgical Provider 05/19/20 08/21/20 Camille Chandler PA-C [address] [place] [address] Assigned Neuroscience Provider 05/19/20 09/14/20 Anabela Barakat APRN CNP [address] [place] [address] Assigned Heart and Vascular Provider 08/15/20 08/05/21 Nima France PA-C [address] [facility] 450 [place] [address] Assigned Musculoskeletal Provider 08/22/20 11/13/20 [place] [address] [place] [address] Assigned Musculoskeletal Provider 11/14/20 12/04/20 Fawad York MD [address] [place], [place] [address] Assigned Musculoskeletal Provider 12/05/20 02/05/21 Roopa Almonte MD [address] [facility] 200 [place] [address] Endocrinology, Diabetes, and Metabolism 01/19/21 [place] [address] [facility] 300 [place] [address] Assigned Musculoskeletal Provider 02/06/21 09/16/21 Maryse Burton PA-C [address] [place] [address] Physician Cigar Wrapper Dermatology 04/14/21 Marquita Starkey MD [address] [facility] [address] [place] [address] Internal Medicine 05/06/21 05/06/21 Roopa Almonte MD [address] [facility] 200 [place] [address] Hospitalist Endocrinology, Diabetes, and Metabolism 05/30/21 Griffin Joshi MD [address] [place] [address] Cardiovascular Disease 07/25/21 Rina Magallon RN Lead Client Success Specialist 07/29/21 07/11/22 Griffin Joshi MD [address] [place] [address] Assigned Heart and Vascular Provider 08/06/21 10/07/21 Roopa Almonte MD [address] [place] [address] 200 [place], [place] [address] Assigned Endocrinology Provider 09/10/21 [place] [address] [facility] [place] [address] Assigned Musculoskeletal Provider 09/17/21 10/14/21 Lydia Bernstein PA-C [address] [place] [address] Assigned PCP 10/01/21 10/21/21 Rosa Maria Love CHW Community Health Worker 10/06/21 [place] [address] [place] [address] Assigned Musculoskeletal Provider 10/15/21 04/26/23 Paula Reza MD [address] [place] [address] Assigned PCP 10/22/21 12/23/21 Keerthi Miner APRN ASSISTANT PROFESSOR OF BIOLOGY [address] [place] [address] Assigned Heart and Vascular Provider 10/08/21 02/10/22 Shahida Sutton APRN ASSISTANT PROFESSOR OF BIOLOGY Assigned PCP 12/24/21 03/24/22 Porsha Michaels APRN ASSISTANT PROFESSOR OF BIOLOGY [address] [place] [address] Assigned Heart and Vascular Provider 02/11/22 05/12/22 Paula Reza MD [address] [place] [address] Assigned PCP 03/25/22 04/07/22 Shahida Sutton APRN ASSISTANT PROFESSOR OF BIOLOGY [address] [place] [address] Assigned PCP 04/08/22 06/30/22 Daylin Ludwig EP [facility] [address] [place] [address] Cardiac Rehabilitation Therapist 05/16/23 [place] Velasquez MD [address] [place] [address] Assigned Heart and Vascular Provider 05/13/22 06/30/22 Daylin Ludwig EP [facility] [address] [place] [address] Cardiac Rehabilitation Therapist 06/08/22 06/09/23 Paula Reza MD [address] [facility] 200 [place] [address] Assigned PCP 07/01/22 07/07/22 Porsha Michaels APRN ASSISTANT PROFESSOR OF BIOLOGY [address] [place] [address] Assigned Heart and Vascular Provider 07/01/22 07/07/22 [place] Velasquez MD [address] [place] [address] Assigned Heart and Vascular Provider 07/08/22 08/04/22 Shahida Sutton APRN ASSISTANT PROFESSOR OF BIOLOGY Assigned PCP 07/08/22 09/08/22 Marilin Montaño, ASSISTANT PROFESSOR OF BIOLOGY [address] [place] [address] Assigned Heart and Vascular Provider 08/05/22 Esha Dewitt MD [address] [place] [address] 36 [place], [place] [address] Gastroenterology 09/06/22 Heather Mosquera MD [address] [place] [address] Internal Medicine 09/06/22 Paula Reza MD [address] [facility] 200 [place], [place] [address] Assigned PCP 09/09/22 01/05/23 Esha Dewitt MD 420 [facility] 36 [place], [place] [address] Assigned Gastroenterology Provider 09/23/22 Valdo Escamilla PA-C [address] [facility] [address] [address] [place], [place] [address] Assigned Neuroscience Provider 09/30/22 Nohelia Abarca PA-C [address] [place], [place] [address] Physician Cigar Wrapper Gastroenterology 10/03/22 Heather Mosquera MD 6545 [facility] 150 [place], [place] [address] Assigned PCP 01/06/23 Fawad York MD [address] [place], [place] [address] Assigned Musculoskeletal Provider 04/27/23 06/25/23 documented as of this encounter
--- OUTSIDE RECORDS SUMMARY | 2023-09-21 08:39 | XMS_ITS | Encounter Summary ---
Author Organization [facility] Address [address] [place] [address] Care Team Providers Care City Library Director Name Role Phone [place] Casron MD Primary Care Provider Mingo Aldana MD Primary Car e Provider Shahida Sutton CUSTOMER INSIGHT ANALYST RECONCILIATION ANALYST Primary Care Provi ford Unavailable Herman, Shahida Cummings APRN RECONCILIATION ANALYST Unavailable Un available Herman, Shahida Cummings APRN RECONCILIATION ANALYST Unavailable Un available Carolynn Ramon RN Unavailable [phone] Augustine Callaway MD Unavailable Brady Lion MD Unavailable Un available Nima FranceC Unavailable [phone] Camille Chandler PA-C Unavailable [phone] Anabela Barakat APRN RECONCILIATION ANALYST Unavailable Nima FranceC Unavailable [phone] Basilio Morillo DO Unavailable [phone] Fawad York MD Unavailable [phone] Roopa Almonte MD Unavailable [phone] Augustine Callaway MD Unavailable Maryse Burton PA-C Unavailable Marquita Starkey MD Unavailable Roopa Almonte MD Unavailable [phone] Griffin Joshi MD Unavailable Rina Magallon RN Unavailable Paula Reza MD Primary Care Provider [phone] Griffin Joshi MD Unavailable Roopa Almonte MD Unavailable [facility] hospitalBasilio win DO Unavailable Lydia Bernstein PA-C Unavailable Rosa Maria Love Unavailable [phone] Augustine Callaway MD Unavailable Paula Reza MD Unavailable Keerthi Miner APRN RECONCILIATION ANALYST Unavailable Herman, Shahida Cummings APRN RECONCILIATION ANALYST Unavailable Un available Porsha Michaels APRN RECONCILIATION ANALYST Unavailable [phone] Paula Reza MD Unavailable Herman, Shahida Cummings APRN RECONCILIATION ANALYST Unavailable Un available Daylin Ludwig Unavailable [phone] Laurel Velasquez MD Unavailable Daylin Ludwig Unavailable [phone] Paula Reza MD Unavailable Porsha Michaels APRN RECONCILIATION ANALYST Unavailable [phone] Laurel Velasquez MD Unavailable Herman, Shahida Cummings APRN RECONCILIATION ANALYST Unavailable Un available Marilin Montaño RECONCILIATION ANALYST Unavailable Esha Dewitt MD Unavailable [phone] Heather Mosquera MD Unavailable Paula Reza MD Unavailable Esha Dewitt MD Unavailable [phone] Valdo Escamilla PA-C Unavailable Nohelia Abarca-C Unavailable [phone] Heather Mosquera MD Unavailable Fawad York MD Unavailable [phone] Encounter Details Date Type Department Care Team (Late st Contact Info) Description 05/07/[address] [phone] [facility] Social History Tobacco Use Types Packs/Day Years [...] Out COVID-19 02/15/2020 02/15/2020 02/16/2020 2:32 PM 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 Rule Out COVID-19 01/05/2021 01/05/2021 01/06/2021 12:57 PM CDT ESBL 01/05/2021 01/05/2021 Rule Out COVID-19 06/30/2021 06/30/2021 07/01/2021 9:34 AM CDT Rule Out COVID-19 07/25/2021 07/25/2021 07/25/2021 8:02 PM CDT documented as of this encounter Care Teams City Library Director Relationship Specialty Start Date End Date [place] Carson MD PCP - General 08/10/03 07/21/09 Mingo Aldana MD PCP - General Family Practice 07/22/09 07/12/14 Shahida Sutton APRN RECONCILIATION ANALYST PCP - General Nurse Practitioner 08/17/14 08/04/21 Shahida Sutton APRN RECONCILIATION ANALYST PCP - Assigned PCP 07/12/14 05/07/18 Paula Reza MD [address] [place], [place] [address] PCP - General Internal Medicine 08/05/21 Shahida Sutton APRN RECONCILIATION ANALYST Assigned PCP 07/12/14 09/30/21 Carolynn Ramon, KASIE Personal Advocate & Liaison (PAL) 12/17/18 08/07/21 [place] [address] [place], [place] [address] Assigned Musculoskeletal Provider 12/26/19 08/21/20 Brady Lion MD Assigned Heart and Vascular Provider 12/26/19 08/14/20 Nima France PA-C [address] [place] [address] Assigned Surgical Provider 05/19/20 08/21/20 Camille Chandler PA-C [address] [facility] [address] [place] [address] Assigned Neuroscience Provider 05/19/20 09/14/20 Anabela Barakat APRN CNP [address] [place] [address] Assigned Heart and Vascular Provider 08/15/20 08/05/21 Nima France PA-C [address] [facility] [address] [place] [address] Assigned Musculoskeletal Provider 08/22/20 11/13/20 [place] [address] [place], [place] [address] Assigned Musculoskeletal Provider 11/14/20 12/04/20 Fawad [place] MD [address] [place], [place] [address] Assigned Musculoskeletal Provider 12/05/20 02/05/21 Roopa Almonte MD [address] [facility] [address] [place] [address] Endocrinology, Diabetes, and Metabolism 01/19/21 [place] [address] [facility] [address] [place] [address] Assigned Musculoskeletal Provider 02/06/21 09/16/21 Maryse Burton PA-C [address] [place] [address] Physician Maintenance Craftsman Dermatology 04/14/21 Marquita Starkey MD [address] [facility] [address] [place] [address] Internal Medicine 05/06/21 05/06/21 Roopa Almonte MD [address] [facility] [address] [place] [address] Hospitalist Endocrinology, Diabetes, and Metabolism 05/30/21 [place] Joshi MD [address] [place] [address] Cardiovascular Disease 07/25/21 Rina Magallon, RN Lead Hall Worker 07/29/21 07/11/22 [place] Joshi MD [address] [place] [address] Assigned Heart and Vascular Provider 08/06/21 10/07/21 Roopa Almonte MD [address] [facility] 200 [place] [address] Assigned Endocrinology Provider 09/10/21 [place] [address] [facility] [place] [address] Assigned Musculoskeletal Provider 09/17/21 10/14/21 Lydia Bernstein PA-C [address] [place] [address] Assigned PCP 10/01/21 10/21/21 Rosa Maria Love [facility] Community Health Worker 10/06/21 [place] [address] [place] [address] Assigned Musculoskeletal Provider 10/15/21 04/26/23 Paula Reza MD [address] [place] [address] Assigned PCP 10/22/21 12/23/21 Keerthi Miner APRN RECONCILIATION ANALYST [address] [place] [address] Assigned Heart and Vascular Provider 10/08/21 02/10/22 Shahida Sutton APRN RECONCILIATION ANALYST Assigned PCP 12/24/21 03/24/22 Porsha Michaels APRN RECONCILIATION ANALYST [address] [place] [address] Assigned Heart and Vascular Provider 02/11/22 05/12/22 Paula Reza MD [address] [place] [address] Assigned PCP 03/25/22 04/07/22 Shahida Sutton APRN RECONCILIATION ANALYST [address] [place] [address] Assigned PCP 04/08/22 06/30/22 Daylin Ludwig EP [facility] [address] [place] [address] Cardiac Rehabilitation Therapist 05/16/23 Laurel Velasquez MD [address] [place] [address] Assigned Heart and Vascular Provider 05/13/22 06/30/22 Daylin Ludwig EP [facility] [address] [place] [address] Cardiac Rehabilitation Therapist 06/08/22 06/09/23 Puala Reza MD [address] [facility] [address] [place] [address] Assigned PCP 07/01/22 07/07/22 Porsha Michaels APRN RECONCILIATION ANALYST [address] [place] [address] Assigned Heart and Vascular Provider 07/01/22 07/07/22 Laurel Velasquez MD [address] [place] [address] Assigned Heart and Vascular Provider 07/08/22 08/04/22 Shahida Sutton APRN RECONCILIATION ANALYST Assigned PCP 07/08/22 09/08/22 Marilin Montaño, RECONCILIATION ANALYST [address] [place] [address] Assigned Heart and Vascular Provider 08/05/22 Esha Dewitt MD [address] [place] [address] [address] [place], [place] [address] Gastroenterology 09/06/22 Heather Mosquera MD [address] [place] [address] Internal Medicine 09/06/22 Paula Reza MD [address] [facility] [address] [place] [address] Assigned PCP 09/09/22 01/05/23 Esha Dewitt MD [address] [facility] 36 [place] [address] Assigned Gastroenterology Provider 09/23/22 Valdo Escamilla PA-C [address] [facility] [address] [place] [address] Assigned Neuroscience Provider 09/30/22 Nohelia Abarca PA-C [address] [place] [address] Physician Maintenance Craftsman Gastroenterology 10/03/22 Heather Mosquera MD [address] [place] [address] Assigned PCP 01/06/23 Fawad [place] MD [address] [place], [place] [address] Assigned Musculoskeletal Provider 04/27/23 06/25/23 documented as of this encounter
--- OUTSIDE RECORDS SUMMARY | 2023-09-21 08:39 | XMS_ITS | Encounter Summary ---
Author Organization [facility] Address [address] [place] [address] Care Team Providers Care Family Sociologist Name Role Phone [place] Carson MD Primary Care Provider Mingo Aldana MD Primary Car e Provider Shahida Sutton DENTAL APPLIANCE REPAIRER MOLECULAR BIOLOGY SCIENTIST Primary Care Provi ford Unavailable Herman, Shahida Cummings APRN MOLECULAR BIOLOGY SCIENTIST Unavailable Un available Herman, Shahida Cummings APRN MOLECULAR BIOLOGY SCIENTIST Unavailable Un available Carolynn Ramon RN Unavailable [phone] Augustine Callaway MD Unavailable Brady Lion MD Unavailable Un available Nima FranceC Unavailable [phone] Camille Chandler PA-C Unavailable [phone] Anabela Barakat APRN MOLECULAR BIOLOGY SCIENTIST Unavailable Nima FranceC Unavailable [phone] Basilio Morillo DO Unavailable [phone] Fawad York MD Unavailable [phone] Roopa Almonte MD Unavailable [phone] Augustine Callaway MD Unavailable Maryse Burton [...] Paula Reza MD Unavailable Keerthi Miner APRN MOLECULAR BIOLOGY SCIENTIST Unavailable Herman, Shahida Cummings APRN MOLECULAR BIOLOGY SCIENTIST Unavailable Un available Porsha Michaels APRN MOLECULAR BIOLOGY SCIENTIST Unavailable [phone] Paula Reza MD Unavailable Herman, Shahida Cummings APRN MOLECULAR BIOLOGY SCIENTIST Unavailable Un available Daylin Ludwig Unavailable [phone] Laurel Velasquez MD Unavailable Daylin Ludwig Unavailable [phone] Paula Reza MD Unavailable Porsha Michaels APRN MOLECULAR BIOLOGY SCIENTIST Unavailable [phone] Laurel Velasquez MD Unavailable Herman, Shahida Cummings APRN MOLECULAR BIOLOGY SCIENTIST Unavailable Un available Marilin Montaño MOLECULAR BIOLOGY SCIENTIST Unavailable Esha Dewitt MD Unavailable [phone] Heather Mosquera MD Unavailable Paula Reza MD Unavailable Esha Dewitt MD Unavailable [phone] Valdo Escamilla PA-C Unavailable Nohelia Abarca PA-C Unavailable [phone] Heather Mosquera MD Unavailable [phone] Fawad York MD Unavailable [phone] Encounter Details Date Type Department Care Team (Late st Contact Info) Description 05/01/2007 [facility] [address] [id number] [place] MD [address] [address] HEADACHE (Primary Dx) Social History [...] 4:28 PM CST Understood, will rx vicodin UNICATIONS WRITER documented in this encounter Plan of Treatment Not on file documented as of this encounter Visit Diagnoses Diagnosis Headache(784.0)- Primary Headache documented in this encounter Additional Health Concerns Infection Onset Date Last Indicated Resolved Time Rule Out COVID-19 02/15/2020 02/15/2020 02/16/2020 2:32 PM COMMUNICATIONS WRITER Rule Out COVID-19 01/05/2021 01/05/2021 01/06/2021 12:57 PM CDT ESBL 01/05/2021 01/05/2021 Rule Out COVID-19 06/30/2021 06/30/2021 07/01/2021 9:34 AM CDT Rule Out COVID-19 07/25/2021 07/25/2021 07/25/2021 8:02 PM CDT documented as of this encounter Care Teams Family Sociologist Relationship Specialty Start Date End Date [place] Carson MD PCP - General 08/10/03 07/21/09 Mingo Aldana MD PCP - General Family Practice 07/22/09 07/12/14 Shahida Sutton APRN MOLECULAR BIOLOGY SCIENTIST PCP - General Nurse Practitioner 08/17/14 08/04/21 Shahida Sutton APRN MOLECULAR BIOLOGY SCIENTIST PCP - Assigned PCP 07/12/14 05/07/18 Paula Reza MD [address] [facility] [address] [place], [place] [address] PCP - General Internal Medicine 08/05/21 Shahida Sutton APRN MOLECULAR BIOLOGY SCIENTIST Assigned PCP 07/12/14 09/30/21 Caroylnn Ramon, KASIE Personal Advocate & Liaison (PAL) 12/17/18 08/07/21 [place] [address] [place] [address] Assigned Musculoskeletal Provider 12/26/19 08/21/20 Brady Lion MD Assigned Heart and Vascular Provider 12/26/19 08/14/20 Nima France PA-C [address] [facility] [address] [address] [place] [address] Assigned Surgical Provider 05/19/20 08/21/20 Camille Chandler PA-C [address] [place], [place] [address] Assigned Neuroscience Provider 05/19/20 09/14/20 Anabela Barakat APRN CNP [address] [place] [address] Assigned Heart and Vascular Provider 08/15/20 08/05/21 Nima France PA-C [address] [facility] [address] [place] [address] Assigned Musculoskeletal Provider 08/22/20 11/13/20 [place] [address] [facility] [place], [place] [address] Assigned Musculoskeletal Provider 11/14/20 12/04/20 Fawad York MD [address] [place], [place] [address] Assigned Musculoskeletal Provider 12/05/20 02/05/21 Roopa Almonte MD [address] [facility] 200 [place] [address] Endocrinology, Diabetes, and Metabolism 01/19/21 [place] [address] [facility] 300 [place] [address] Assigned Musculoskeletal Provider 02/06/21 09/16/21 Maryse Burton PA-C [address] [place] [address] Physician Textile Colorist Dyer Dermatology 04/14/21 Marquita Starkey MD [address] [facility] 200 [place], [place] [address] Internal Medicine 05/06/21 05/06/21 Roopa Almonte MD [address] [facility] 200 [place] [address] Hospitalist Endocrinology, Diabetes, and Metabolism 05/30/21 [place] Joshi MD [address] [facility] [address] [place], [place] [address] Cardiovascular Disease 07/25/21 Rina Magallon, RN Lead Physician Relations Manager 07/29/21 07/11/22 Griffin Joshi MD [address] [facility] [address] [place] [address] Assigned Heart and Vascular Provider 08/06/21 10/07/21 Roopa Almonte MD [address] [facility] 200 [place] [address] Assigned Endocrinology Provider 09/10/21 [place] [address] [facility] [place] [address] Assigned Musculoskeletal Provider 09/17/21 10/14/21 Lydia Bernstein PA-C [address] [place] [address] Assigned PCP 10/01/21 10/21/21 Rosa Maria Love Cristina Community Health Worker 10/06/21 [place] [address] [place] [address] Assigned Musculoskeletal Provider 10/15/21 04/26/23 Paula Reza MD [address] [place] [address] Assigned PCP 10/22/21 12/23/21 Keerthi Miner APRN MOLECULAR BIOLOGY SCIENTIST [address] [place] [address] Assigned Heart and Vascular Provider 10/08/21 02/10/22 Shahida Sutton, DUANE MOLECULAR BIOLOGY SCIENTIST Assigned PCP 12/24/21 03/24/22 Porsha Michaels APRN MOLECULAR BIOLOGY SCIENTIST [address] [place] [address] Assigned Heart and Vascular Provider 02/11/22 05/12/22 Paula Reza MD [address] [place] [address] Assigned PCP 03/25/22 04/07/22 Shahida Sutton APRN MOLECULAR BIOLOGY SCIENTIST [address] [place] [address] Assigned PCP 04/08/22 06/30/22 Daylin Ludwig, [facility] [address] [place] [address] Cardiac Rehabilitation Therapist 05/16/23 Laurel Velasquez MD [address] [place] [address] Assigned Heart and Vascular Provider 05/13/22 06/30/22 Daylin Ludwig, [facility] [address] [place] [address] Cardiac Rehabilitation Therapist 06/08/22 06/09/23 Paula Reza MD [address] [facility] [address] [place] [address] Assigned PCP 07/01/22 07/07/22 Porsha Michaels APRN MOLECULAR BIOLOGY SCIENTIST [address] [place] [address] Assigned Heart and Vascular Provider 07/01/22 07/07/22 Laurel Velasquez MD [address] [place] [address] Assigned Heart and Vascular Provider 07/08/22 08/04/22 Shahida Sutton APRN MOLECULAR BIOLOGY SCIENTIST Assigned PCP 07/08/22 09/08/22 Marilin Montaño, MOLECULAR BIOLOGY SCIENTIST [address] [place] [address] Assigned Heart and Vascular Provider 08/05/22 Esha Dewitt MD [address] [address] Gastroenterology 09/06/22 Heather Mosquera MD [address] [place] [address] Internal Medicine 09/06/22 Paula Reza MD [address] [facility] 200 [place] [address] Assigned PCP 09/09/22 01/05/23 Esha Dewitt MD [address] [address] Assigned Gastroenterology Provider 09/23/22 Valdo Escamilla PA-C [address] [facility] [address] [address] [place] [address] Assigned Neuroscience Provider 09/30/22 Nohelia Abarca PA-C [address] [place] [address] Physician Textile Colorist Dyer Gastroenterology 10/03/22 Heather Mosquera MD [address] [place] [address] Assigned PCP 01/06/23 Fawad [place] MD [address] [place] [address] Assigned Musculoskeletal Provider 04/27/23 06/25/23 documented as of this encounter
--- OUTSIDE RECORDS SUMMARY | 2023-09-21 08:39 | XMS_ITS | Encounter Summary ---
Author Organization [facility] Address [address] [place] [address] Care Team Providers Care Pattern Drum Maker Name Role Phone Dixon Carson MD Primary Care Provider Mingo Aldana MD Primary Car e Provider Shahida Sutton REMOTE RECRUITER MEMBER OF THE LEGISLATIVE ASSEMBLY Primary Care Provi ford Unavailable Herman, Shahida Cummings APRN MEMBER OF THE LEGISLATIVE ASSEMBLY Unavailable Un available Herman, Shahida Cummings APRN MEMBER OF THE LEGISLATIVE ASSEMBLY Unavailable Un available Carolynn Ramon RN Unavailable [phone] Augustine Callaway MD Unavailable Brady Lion MD Unavailable Un available Nima FranceC Unavailable [phone] Camille Chandler PA-C Unavailable [phone] Anabela Barakat APRN MEMBER OF THE LEGISLATIVE ASSEMBLY Unavailable Nima FranceC Unavailable [phone] Basilio Morillo DO Unavailable [phone] Fawad York MD Unavailable [phone] Roopa Almonte MD Unavailable [phone] Augustine Callaway MD Unavailable Maryse Burton PA-C Unavailable Marquita Starkey MD Unavailable Roopa Almonte MD Unavailable [phone] Griffin Joshi MD Unavailable Rina Magallon RN Unavailable Paula Reza MD Primary Care Provider [phone] Griffin Joshi MD Unavailable Roopa Almonte MD Unavailable [facility] win DO Unavailable Lydia Bernstein PA-C Unavailable Rosa Maria Love Unavailable [phone] Augustine Callaway MD Unavailable Paula Reza MD Unavailable Keerthi Miner APRN MEMBER OF THE LEGISLATIVE ASSEMBLY Unavailable Herman, Shahida Cummings APRN MEMBER OF THE LEGISLATIVE ASSEMBLY Unavailable Un available Porsha Michaels APRN MEMBER OF THE LEGISLATIVE ASSEMBLY Unavailable [phone] Paula Reza MD Unavailable Herman, Shahida Cummings APRN MEMBER OF THE LEGISLATIVE ASSEMBLY Unavailable Un available Daylin Ludwig Unavailable [phone] Laurel Velasquez MD Unavailable Daylin Ludwig Unavailable [phone] Paula Reza MD Unavailable Porsha Michaels APRN MEMBER OF THE LEGISLATIVE ASSEMBLY Unavailable [phone] Laurel Velasquez MD Unavailable Herman, Shahida Cummings APRN MEMBER OF THE LEGISLATIVE ASSEMBLY Unavailable Un available Marilin Montaño MEMBER OF THE LEGISLATIVE ASSEMBLY Unavailable Esha Dewitt MD Unavailable [phone] Heather Mosquera MD Unavailable Paula Reza MD Unavailable Esha Dewitt MD Unavailable [phone] Valdo Escamilla PA-C Unavailable [phone] Nohelia AbarcaC Unavailable [phone] Heather Mosquera MD Unavailable [phone] Fawad York MD Unavailable [phone] Reason for Visit * Reason Onset Date Comments Refill Request 04/15/2008 Ambien Encounter Details Date Type Department Care Team (Late st Contact Info) Description 04/14/2008 MyC Refill [address] [address] Dixon Carson MD [address] [address] Refill Request (Rickie) Social History Tobacco Use [...] Last filled was 03/09/08 Elizabeth Piña RN UTER NETWORKER * Telephone Encounter - Elizabeth Piña - 04/15/2008 8:14 AM CSTMessage from MyChart: Original authorizing provider: Dixon Terrell would like a refill of the following medications: AMBIEN 10 MG OR TABS [Dixon Carson MD] Preferred pharmacy: [facility] [place] Comment: UTER NETWORKER documented in this encounter Plan of Treatment Not on file documented as of this encounter Visit Diagnoses Diagnosis Insomnia with sleep apnea, unspecified documented in this encounter Additional Health Concerns Infection Onset Date Last Indicated Resolved Time Rule Out COVID-19 02/15/2020 02/15/2020 02/16/2020 2:32 PM COMPUTER NETWORKER Rule Out COVID-19 01/05/2021 01/05/2021 01/06/2021 12:57 PM CDT ESBL 01/05/2021 01/05/2021 Rule Out COVID-19 06/30/2021 06/30/2021 07/01/2021 9:34 AM CDT Rule Out COVID-19 07/25/2021 07/25/2021 07/25/2021 8:02 PM CDT documented as of this encounter Care Teams Pattern Drum Maker Relationship Specialty Start Date End Date Dixon Carson MD PCP - General 08/10/03 07/21/09 Mingo Aldana MD PCP - General Family Practice 07/22/09 07/12/14 Shahida Sutton APRN MEMBER OF THE LEGISLATIVE ASSEMBLY PCP - General Nurse Practitioner 08/17/14 08/04/21 Shahida Sutton APRN MEMBER OF THE LEGISLATIVE ASSEMBLY PCP - Assigned PCP 07/12/14 05/07/18 Paula Reza MD [address] [address] PCP - General Internal Medicine 08/05/21 Shahida Sutton APRN MEMBER OF THE LEGISLATIVE ASSEMBLY Assigned PCP 07/12/14 09/30/21 Carolynn Ramon RN Personal Advocate & Liaison (PAL) 12/17/18 08/07/21 [place] [address] [facility] [address] [place] [address] Assigned Musculoskeletal Provider 12/26/19 08/21/20 Brady Lion MD Assigned Heart and Vascular Provider 12/26/19 08/14/20 Nima France PA-C [address] [facility] [address] [place] [address] Assigned Surgical Provider 05/19/20 08/21/20 Camille Chandler PA-C [address] [facility] [address] [place] [address] Assigned Neuroscience Provider 05/19/20 09/14/20 Anabela Barakat APRN MEMBER OF THE LEGISLATIVE ASSEMBLY [address] [place] [address] Assigned Heart and Vascular Provider 08/15/20 08/05/21 Nima France PA-C [address] [facility] S [facility] [address] [place] [address] Assigned Musculoskeletal Provider 08/22/20 11/13/20 [place] [address] [facility] [place] [address] Assigned Musculoskeletal Provider 11/14/20 12/04/20 Fawad York MD [address] [place] [address] Assigned Musculoskeletal Provider 12/05/20 02/05/21 Roopa Almonte MD [address] [facility] [address] [place] [address] Endocrinology, Diabetes, and Metabolism 01/19/21 [place] [address] [facility] [address] [place] [address] Assigned Musculoskeletal Provider 02/06/21 09/16/21 Maryse Burton PA-C [address] [place] [address] Physician Realtime Captioner Dermatology 04/14/21 Marquita Starkey MD [address] [facility] [address] [place] [address] Internal Medicine 05/06/21 05/06/21 Roopa Almonte MD [address] [facility] [address] [place] [address] Hospitalist Endocrinology, Diabetes, and Metabolism 05/30/21 Griffin Joshi MD [address] [facility] [address] [place] [address] Cardiovascular Disease 07/25/21 Rina Magallon, RN Lead Merchandising Assistant 07/29/21 07/11/22 Griffin Joshi MD [address] [place] [address] Assigned Heart and Vascular Provider 08/06/21 10/07/21 Roopa Almonte MD [address] [address] [place], [place] [address] Assigned Endocrinology Provider 09/10/21 [place] [address] [facility] [place] [address] Assigned Musculoskeletal Provider 09/17/21 10/14/21 Lydia Bernstein, HUYC [address] [place] [address] Assigned PCP 10/01/21 10/21/21 Rosa Maria Love Cristina Community Health Worker 10/06/21 [place] [address] [facility] [address] [place] [address] Assigned Musculoskeletal Provider 10/15/21 04/26/23 Paula Reza MD [address] [place] [address] Assigned PCP 10/22/21 12/23/21 Keerthi Miner APRN MEMBER OF THE LEGISLATIVE ASSEMBLY [address] [place] [address] Assigned Heart and Vascular Provider 10/08/21 02/10/22 Shahida Sutton APRN MEMBER OF THE LEGISLATIVE ASSEMBLY Assigned PCP 12/24/21 03/24/22 Porsha Michaels APRN MEMBER OF THE LEGISLATIVE ASSEMBLY [address] [address] Assigned Heart and Vascular Provider 02/11/22 05/12/22 Paula Reza MD [address] [place] [address] Assigned PCP 03/25/22 04/07/22 Shahida Sutton APRN MEMBER OF THE LEGISLATIVE ASSEMBLY [address] [place] [address] Assigned PCP 04/08/22 06/30/22 Daylin Ludwig, EP [facility] [address] [address] Cardiac Rehabilitation Therapist 05/16/23 Laurel Velasquez MD [address] [place] [address] Assigned Heart and Vascular Provider 05/13/22 06/30/22 Daylin Ludwig, EP [facility] [address] [place] [address] Cardiac Rehabilitation Therapist 06/08/22 06/09/23 Paula Reza MD [address] [place] [address] Assigned PCP 07/01/22 07/07/22 Porsha Michaels APRN MEMBER OF THE LEGISLATIVE ASSEMBLY [address] [address] Assigned Heart and Vascular Provider 07/01/22 07/07/22 Laurel Velasquez MD [address] [place] [address] Assigned Heart and Vascular Provider 07/08/22 08/04/22 Shahida Sutton APRN MEMBER OF THE LEGISLATIVE ASSEMBLY Assigned PCP 07/08/22 09/08/22 Marilin Montaño, MEMBER OF THE LEGISLATIVE ASSEMBLY [address] [place] [address] Assigned Heart and Vascular Provider 08/05/22 Esha Dewitt MD [address] [facility] [address] [place], [place] [address] Gastroenterology 09/06/22 Heather Mosquera MD [address] [place] [address] Internal Medicine 09/06/22 Paula Reza MD [address] [facility] [address] [place] [address] Assigned PCP 09/09/22 01/05/23 Esha Dewitt MD [address] [facility] [address] [place], [place] [address] Assigned Gastroenterology Provider 09/23/22 Valdo Escamilla PA-C [address] [place] [address] Assigned Neuroscience Provider 09/30/22 Nohelia Abarca PA-C [address] [place] [address] Physician Realtime Captioner Gastroenterology 10/03/22 Heather Mosquera MD [address] [facility] 150 [place], [place] [address] Assigned PCP 01/06/23 Fawad York MD [address] [place], [place] [address] Assigned Musculoskeletal Provider 04/27/23 06/25/23 documented as of this encounter
--- OUTSIDE RECORDS SUMMARY | 2023-09-21 08:39 | XMS_ITS | Encounter Summary ---
Author Organization [facility] Address [address] [place] [address] Care Team Providers Care Pullman Car Repairer Name Role Phone Dixon Carson MD Primary Care Provider Mingo Aldana MD Primary Car e Provider Shahida Sutton MILL TURNER SATELLITE COMMUNICATIONS OPERATOR Primary Care Provi ford Unavailable Herman, Shahida Cummings APRN SATELLITE COMMUNICATIONS OPERATOR Unavailable Un available Herman, Shahida Cummings APRN SATELLITE COMMUNICATIONS OPERATOR Unavailable Un available Carolynn Ramon RN Unavailable [phone] Augustine Callaway MD Unavailable Brady Lion MD Unavailable Un available Nima FranceC Unavailable [phone] Camille Chandler PA-C Unavailable [phone] Anabela Barakat APRN SATELLITE COMMUNICATIONS OPERATOR Unavailable Nima FranceC Unavailable [phone] Basilio Morillo DO Unavailable [phone] Fawad York MD Unavailable [phone] Roopa Almonte MD Unavailable [phone] Augustine Callaway MD Unavailable Maryse Burton PA-C Unavailable Marquita Starkey MD Unavailable Roopa Almonte MD Unavailable [phone] Griffin Joshi MD Unavailable Rina Magallon RN Unavailable Paula Reza MD Primary Care Provider [phone] Griffin Joshi MD Unavailable Roopa Almonte MD Unavailable [facility] islandBasilio win DO Unavailable Lydia Bernstein PA-C Unavailable Rosa Maria Love Unavailable [phone] Augustine Callaway MD Unavailable Paula Reza MD Unavailable Keerthi Miner APRN SATELLITE COMMUNICATIONS OPERATOR Unavailable Herman, Shahida Cummings APRN SATELLITE COMMUNICATIONS OPERATOR Unavailable Un available Porsha Michaels APRN SATELLITE COMMUNICATIONS OPERATOR Unavailable [phone] Paula Reza MD Unavailable Herman, Shahida Cummings APRN SATELLITE COMMUNICATIONS OPERATOR Unavailable Un available Daylin Ludwig Unavailable [phone] Laurel Velasquez MD Unavailable Daylin Ludwig Unavailable [phone] Paula Reza MD Unavailable Porsha Michaels APRN SATELLITE COMMUNICATIONS OPERATOR Unavailable [phone] Laurel Velasquez MD Unavailable Herman, Shahida Cummings APRN SATELLITE COMMUNICATIONS OPERATOR Unavailable Un available Marilin Montaño SATELLITE COMMUNICATIONS OPERATOR Unavailable Esha Dewitt MD Unavailable [phone] Heather Mosquera MD Unavailable [phone] Paula Reza MD Unavailable Esha Dewitt MD Unavailable [phone] Valdo Escamilla PA-C Unavailable Nohelia AbarcaC Unavailable [phone] Heather Mosquera MD Unavailable Fawad York MD Unavailable [phone] Reason for Visit * Reason Onset Date Comments Pt. Information/instruction 06/13/2007 Encounter Details Date Type Department Care Team (Late st Contact Info) Description 06/12/2007 [facility] Medical Advice [address] [address] Dixon Carson MD [address] [address] Pt. Information/instruct ion Social History Tobacco Use [...] documented as of this encounter Care Teams Pullman Car Repairer Relationship Specialty Start Date End Date Dixon Carson MD PCP - General 08/10/03 07/21/09 Mingo Aldana MD PCP - General Family Practice 07/22/09 07/12/14 Shahida Sutton APRN SATELLITE COMMUNICATIONS OPERATOR PCP - General Nurse Practitioner 08/17/14 08/04/21 Shahida Sutton APRN SATELLITE COMMUNICATIONS OPERATOR PCP - Assigned PCP 07/12/14 05/07/18 Paula Reza MD [address] [facility] 200 [place], [place] [address] PCP - General Internal Medicine 08/05/21 Shahida Sutton APRN SATELLITE COMMUNICATIONS OPERATOR Assigned PCP 07/12/14 09/30/21 Carolynn Ramon RN Personal Advocate & Liaison (PAL) 12/17/18 08/07/21 [place] [address] [place] [address] Assigned Musculoskeletal Provider 12/26/19 08/21/20 Brady Lion MD Assigned Heart and Vascular Provider 12/26/19 08/14/20 Nima France PA-C [address] [facility] [address] [place] [address] Assigned Surgical Provider 05/19/20 08/21/20 Camille Chandler PA-C [address] [facility] [address] [place], [place] [address] Assigned Neuroscience Provider 05/19/20 09/14/20 Anabela Barakat APRN SATELLITE COMMUNICATIONS OPERATOR 17[address] [place] [address] Assigned Heart and Vascular Provider 08/15/20 08/05/21 Nima France PA-C [address] [facility] 450 [place] [address] Assigned Musculoskeletal Provider 08/22/20 11/13/20 [place] [address] [place], [place] [address] Assigned Musculoskeletal Provider 11/14/20 12/04/20 Fawad York MD [address] [place], [place] [address] Assigned Musculoskeletal Provider 12/05/20 02/05/21 Roopa Almonte MD [address] [facility] [address] [place], [place] [address] Endocrinology, Diabetes, and Metabolism 01/19/21 [place] [address] [address] [facility] 300 [place] [address] Assigned Musculoskeletal Provider 02/06/21 09/16/21 Maryse Burton PA-C [address] [place] [address] Physician Guard Supervisor Dermatology 04/14/21 Marquita Starkey MD [address] [facility] 200 [place], [place] [address] Internal Medicine 05/06/21 05/06/21 Roopa Almonte MD [address] [facility] 200 [place], [place] [address] Hospitalist Endocrinology, Diabetes, and Metabolism 05/30/21 Griffin Joshi MD [address] [facility] [address] [place], [place] [address] Cardiovascular Disease 07/25/21 Rina Magallon, RN Lead Heel Top Lift Splitter 07/29/21 07/11/22 Griffin Joshi MD [address] [facility] [address] [place] [address] Assigned Heart and Vascular Provider 08/06/21 10/07/21 Roopa Almonte MD [address] [place], [place] [address] Assigned Endocrinology Provider 09/10/21 [place] [address] [facility] [place] [address] Assigned Musculoskeletal Provider 09/17/21 10/14/21 Lydia Bernstein PA-C [address] [place] [address] Assigned PCP 10/01/21 10/21/21 Kate Rosa MariaSHARDAW Community Health Worker 10/06/21 [place] [address] [place] [address] Assigned Musculoskeletal Provider 10/15/21 04/26/23 Paula Reza MD [address] [place] [address] Assigned PCP 10/22/21 12/23/21 Keerthi Miner APRN SATELLITE COMMUNICATIONS OPERATOR [address] [place] [address] Assigned Heart and Vascular Provider 10/08/21 02/10/22 Shahida Sutton APRN SATELLITE COMMUNICATIONS OPERATOR Assigned PCP 12/24/21 03/24/22 Porsha Michaels APRN SATELLITE COMMUNICATIONS OPERATOR [address] [address] Assigned Heart and Vascular Provider 02/11/22 05/12/22 Paula Reza MD [address] [place] [address] Assigned PCP 03/25/22 04/07/22 Shahida Sutton APRN SATELLITE COMMUNICATIONS OPERATOR [address] [place] [address] Assigned PCP 04/08/22 06/30/22 Daylin Ludwig EP [facility] [address] [place] [address] Cardiac Rehabilitation Therapist 05/16/23 Laurel Velasquez MD [address] [place] [address] Assigned Heart and Vascular Provider 05/13/22 06/30/22 Daylin Ludwig, EP [facility] [address] [place] [address] Cardiac Rehabilitation Therapist 06/08/22 06/09/23 Paula Reza MD [address] [address] Assigned PCP 07/01/22 07/07/22 Porsha Michaels APRN SATELLITE COMMUNICATIONS OPERATOR [address] [place] [address] Assigned Heart and Vascular Provider 07/01/22 07/07/22 Laurel Velasquez MD [address] [address] Assigned Heart and Vascular Provider 07/08/22 08/04/22 Shahida Sutton APRN SATELLITE COMMUNICATIONS OPERATOR Assigned PCP 07/08/22 09/08/22 Marilin Montaño, SATELLITE COMMUNICATIONS OPERATOR [address] [place] [address] Assigned Heart and Vascular Provider 08/05/22 Esha Dewitt MD 420 [facility] 36 [place] [address] Gastroenterology 09/06/22 Heather Mosquera MD [address] [place] [address] Internal Medicine 09/06/22 Paula Reza MD [address] [facility] 200 [place] [address] Assigned PCP 09/09/22 01/05/23 Esha Dewitt MD [address] [address] Assigned Gastroenterology Provider 09/23/22 Valdo Escamilla PA-C [address] [facility] [address] [place] [address] Assigned Neuroscience Provider 09/30/22 Nohelia Abarca PA-C [address]50 [place] [address] Physician Guard Supervisor Gastroenterology 10/03/22 Heather Mosquera MD [address] [place] [address] Assigned PCP 01/06/23 Fawad York MD [address] [place], [place] [address] Assigned Musculoskeletal Provider 04/27/23 06/25/23 documented as of this encounter
--- OUTSIDE RECORDS SUMMARY | 2023-09-21 08:39 | XMS_ITS | Encounter Summary ---
Author Organization [facility] Address [address] [place] [address] Care Team Providers Care Supervisor Shuttle Preparation Name Role Phone Dixon Carson MD Primary Care Provider Mingo Aldana MD Primary Car e Provider Shahida Sutton SPINNER HYDRAULIC AERONAUTICAL ENGINEERING OFFICER Primary Care Provi frod Unavailable Herman, Shahida Cummings APRN AERONAUTICAL ENGINEERING OFFICER Unavailable Un available Herman, Shahida Cummings APRN AERONAUTICAL ENGINEERING OFFICER Unavailable Un available Carolynn Ramon RN Unavailable [phone] Augustine Callaway MD Unavailable Brady Lion MD Unavailable Un available Nima FranceC Unavailable [phone] Camille Chandler PA-C Unavailable [phone] Anabela Barakat APRN AERONAUTICAL ENGINEERING OFFICER Unavailable Nima FranceC Unavailable [phone] Basilio Morillo DO Unavailable [phone] Fawad York MD Unavailable [phone] Roopa Almonte MD Unavailable [phone] Augustine Callaway MD Unavailable Maryse Burton [...] Paula Reza MD Unavailable Keerthi Miner APRN AERONAUTICAL ENGINEERING OFFICER Unavailable Herman, Shahida Cummings APRN AERONAUTICAL ENGINEERING OFFICER Unavailable Un available Porsha Michaels APRN AERONAUTICAL ENGINEERING OFFICER Unavailable [phone] Paula Reza MD Unavailable Herman, Shahida Cummings APRN AERONAUTICAL ENGINEERING OFFICER Unavailable Un available Daylin Ludwig Unavailable [phone] Laurel Velasquez MD Unavailable Daylin Ludwig Unavailable [phone] Paula Reza MD Unavailable Porsha Michaels APRN AERONAUTICAL ENGINEERING OFFICER Unavailable [phone] Laurel Velasquez MD Unavailable Herman, Shahida Cummings APRN AERONAUTICAL ENGINEERING OFFICER Unavailable Un available Marilin Montaño AERONAUTICAL ENGINEERING OFFICER Unavailable [phone] Esha Dewitt MD Unavailable [phone] Heather Mosquera MD Unavailable [phone] Paula Reza MD Unavailable Esha Dewitt MD Unavailable [phone] AyseValdo cabrera Deo WEBB Unavailable Nohelia Abarca PA-C Unavailable [phone] Heather Mosquera MD Unavailable [phone] Fawad York MD Unavailable Reason for Visit * Reason Onset Date Comments Refill Request 02/14/2008 diazepam Encounter Details Date Type Department Care Team (Late st Contact Info) Description 02/14/2008 [facility] [address] [address] Dixon Carson MD [address] [address] Refill Request (diazepam) Social History Tobacco Use [...] - 02/14/2008 12:59 PM CST See below GER VIDEO * Telephone Encounter - Ratna Lambert - 02/14/2008 12:39 PM CST Date of last OV: 12/30/07 Reason for visit: lumbago Date last filled: per epic 12/30/07 #24 Labs pertaining to med: none ,Unable to approve per standing orders, routed to provider. Ratna Lambert RN GER VIDEO * Telephone Encounter - Ratna Lambert - 02/14/2008 12:38 PM CSTMessage from MyChart: Original authorizing provider: Dixon Terrell would like a refill of the following medications: DIAZEPAM 5 MG OR TABS [Dixon Carson MD] Preferred pharmacy: [facility] Comment: occasional back flare-ups, less than before, but still periodically somewhat dibilitating GER VIDEO documented in this encounter Plan of Treatment Not on file documented as of this encounter Visit Diagnoses Diagnosis Lumbago documented in this encounter Additional Health Concerns Infection Onset Date Last Indicated Resolved Time Rule Out COVID-19 02/15/2020 02/15/2020 02/16/2020 2:32 PM MANAGER VIDEO Rule Out COVID-19 01/05/2021 01/05/2021 01/06/2021 12:57 PM CDT ESBL 01/05/2021 01/05/2021 Rule Out COVID-19 06/30/2021 06/30/2021 07/01/2021 9:34 AM CDT Rule Out COVID-19 07/25/2021 07/25/2021 07/25/2021 8:02 PM CDT documented as of this encounter Care Teams Supervisor Shuttle Preparation Relationship Specialty Start Date End Date Dixon Carson MD PCP - General 08/10/03 07/21/09 Mingo Aldana MD PCP - General Family Practice 07/22/09 07/12/14 Shahida Sutton APRN AERONAUTICAL ENGINEERING OFFICER PCP - General Nurse Practitioner 08/17/14 08/04/21 Shahida Sutton APRN AERONAUTICAL ENGINEERING OFFICER PCP - Assigned PCP 07/12/14 05/07/18 Paula Reza MD [address] [facility] [address] [place] [address] PCP - General Internal Medicine 08/05/21 Shahida Sutton APRN AERONAUTICAL ENGINEERING OFFICER Assigned PCP 07/12/14 09/30/21 Carolynn Ramon, KASIE Personal Advocate & Liaison (PAL) 12/17/18 08/07/21 [place] [address] [place] [address] Assigned Musculoskeletal Provider 12/26/19 08/21/20 Brady Lion MD Assigned Heart and Vascular Provider 12/26/19 08/14/20 Nima France PA-C [address] [facility] 450 [place] [address] Assigned Surgical Provider 05/19/20 08/21/20 Camille Chandler PA-C [address] [facility] [address] [place] [address] Assigned Neuroscience Provider 05/19/20 09/14/20 Anabela Barakat APRN AERONAUTICAL ENGINEERING OFFICER [address] [place] [address] Assigned Heart and Vascular Provider 08/15/20 08/05/21 Nima France PA-C [address] [place] [address] Assigned Musculoskeletal Provider 08/22/20 11/13/20 Ilia Basilio Naik [address] [facility] [place] [address] Assigned Musculoskeletal Provider 11/14/20 12/04/20 Fawad York MD [address] [place], [place] [address] Assigned Musculoskeletal Provider 12/05/20 02/05/21 Roopa Almonte MD [address] [facility] [facility] [address] [place] [address] Endocrinology, Diabetes, and Metabolism 01/19/21 [place] [address] [facility] [address] [place] [address] Assigned Musculoskeletal Provider 02/06/21 09/16/21 Maryse Burton PAAna MariaC [address] [place] [address] Physician Daytime Babysitter Dermatology 04/14/21 Marquita Starkey MD [address] [place] [address] Internal Medicine 05/06/21 05/06/21 Roopa Almonte MD [address] [place] [address] Hospitalist Endocrinology, Diabetes, and Metabolism 05/30/21 Griffin Joshi MD [address] [facility] [address] [place] [address] Cardiovascular Disease 07/25/21 Rina Magallon, RN Lead Braid Folder 07/29/21 07/11/22 Griffin Joshi MD [address] [facility] [address] [place] [address] Assigned Heart and Vascular Provider 08/06/21 10/07/21 Roopa Almonte MD [address] [facility] [address] [place], [place] [address] Assigned Endocrinology Provider 09/10/21 [place] [address] [facility] [place] [address]3289 Assigned Musculoskeletal Provider 09/17/21 10/14/21 Lydia Bernstein PA-C [address] [facility] [address] [place] [address] Assigned PCP 10/01/21 10/21/21 Rosa Maria Love CHW Community Health Worker 10/06/21 [place] [address] [facility] [address] [place] [address] Assigned Musculoskeletal Provider 10/15/21 04/26/23 Paula Reza MD [address] [facility] [address] [place] [address] Assigned PCP 10/22/21 12/23/21 Keerthi Miner SPINNER HYDRAULIC AERONAUTICAL ENGINEERING OFFICER [address] [place] [address] Assigned Heart and Vascular Provider 10/08/21 02/10/22 Shahida Sutton APRN AERONAUTICAL ENGINEERING OFFICER Assigned PCP 12/24/21 03/24/22 Porsha Michaels APRN AERONAUTICAL ENGINEERING OFFICER [address] [place] [address] Assigned Heart and Vascular Provider 02/11/22 05/12/22 Paula Reza MD [address] [facility] [address] [place] [address] Assigned PCP 03/25/22 04/07/22 Shahida Sutton APRN AERONAUTICAL ENGINEERING OFFICER [address] [place] [address] Assigned PCP 04/08/22 06/30/22 Daylin Ludwig EP [facility] [address] [place] [address] Cardiac Rehabilitation Therapist 05/16/23 Laurel Velasquez MD [address] [place] [address] Assigned Heart and Vascular Provider 05/13/22 06/30/22 Daylin Ludwig EP [facility] [address] [place] [address] Cardiac Rehabilitation Therapist 06/08/22 06/09/23 Paula Reza MD [address] [place] [address] Assigned PCP 07/01/22 07/07/22 Porsha Michaels APRN AERONAUTICAL ENGINEERING OFFICER [address] [place] [address] Assigned Heart and Vascular Provider 07/01/22 07/07/22 Laurel Velasquez MD [address] [place] [address] Assigned Heart and Vascular Provider 07/08/22 08/04/22 Shahida Sutton APRN AERONAUTICAL ENGINEERING OFFICER Assigned PCP 07/08/22 09/08/22 Marilin Montaño AERONAUTICAL ENGINEERING OFFICER [address] [place] [address] Assigned Heart and Vascular Provider 08/05/22 Esha Dewitt MD [address] [place] [address] Gastroenterology 09/06/22 Heather Mosquera MD [address] [place] [address] Internal Medicine 09/06/22 Paula Reza MD [address] [place], [place] [address] Assigned PCP 09/09/22 01/05/23 Esha Dewitt MD [address] [place] [address] Assigned Gastroenterology Provider 09/23/22 Valdo Escamilla PA-C [address] [facility] [address] [place] [address] Assigned Neuroscience Provider 09/30/22 Nohelia Abarca PA-C [address] [place], [place] [address] Physician Daytime Babysitter Gastroenterology 10/03/22 Heather Mosquera MD [address] [facility] 150 [place], [place] [address] Assigned PCP 01/06/23 Fawad York MD [address] [place], [place] [address] Assigned Musculoskeletal Provider 04/27/23 06/25/23 documented as of this encounter
--- OUTSIDE RECORDS SUMMARY | 2023-09-21 08:39 | XMS_ITS | Encounter Summary ---
Author Organization [facility] Address [address] [place] [address] Care Team Providers Care Circular Knife Machine Cutter Name Role Phone Dixon Carson MD Primary Care Provider Mingo Aldana MD Primary Car e Provider Shahida Sutton EMPLOYMENT ADJUDICATOR GOURMET COFFEE ATTENDANT Primary Care Provi ford Unavailable Herman, Shahida Cummings APRN GOURMET COFFEE ATTENDANT Unavailable Un available Herman, Shahida Cummings APRN GOURMET COFFEE ATTENDANT Unavailable Un available Carolynn Ramon RN Unavailable [phone] Augustine Callaway MD Unavailable Brady Lion MD Unavailable Un available Nima FranceC Unavailable [phone] Camille Chandler PA-C Unavailable [phone] Anabela Barakat APRN GOURMET COFFEE ATTENDANT Unavailable Nima FranceC Unavailable [phone] Basilio Morillo DO Unavailable [phone] Fawad York MD Unavailable [phone] Roopa Almonte MD Unavailable [phone] Augustine Callaway MD Unavailable Maryse Burton PA-C Unavailable Marquita Starkey MD Unavailable Roopa Almonte MD Unavailable [phone] Griffin Joshi MD Unavailable Rina Magallon RN Unavailable Paula Reza MD Primary Care Provider [phone] Griffin Joshi MD Unavailable Roopa Almonte MD Unavailable [facility] win DO Unavailable Lydia Bernstein PA-C Unavailable Rosa Maria Love Unavailable [phone] Augustine Callaway MD Unavailable Paula Reza MD Unavailable Keerthi Miner APRN GOURMET COFFEE ATTENDANT Unavailable Herman, Shahida Cummings APRN GOURMET COFFEE ATTENDANT Unavailable Un available Porsha Michaels APRN GOURMET COFFEE ATTENDANT Unavailable [phone] Paula Reza MD Unavailable Herman, Shahida Cummings APRN GOURMET COFFEE ATTENDANT Unavailable Un available Daylin Ludwig Unavailable [phone] Laurel Velasquez MD Unavailable Daylin Ludwig Unavailable [phone] Paula Reza MD Unavailable Porsha Michaels APRN GOURMET COFFEE ATTENDANT Unavailable [phone] Laurel Velasquez MD Unavailable Herman, Shahida Cummings APRN GOURMET COFFEE ATTENDANT Unavailable Un available Marilin Montaño GOURMET COFFEE ATTENDANT Unavailable Esha Dewitt MD Unavailable [phone] Heather Mosquera MD Unavailable Paula Reza MD Unavailable Esha Dewitt MD Unavailable [phone] Valdo Escamilla PA-C Unavailable Nohelia AbarcaC Unavailable [phone] Heather Mosquera MD Unavailable Fawad York MD Unavailable Encounter Details Date Type Department Care Team (Late st Contact Info) Description 06/11/2007 [facility] [address] [address] Dixon Carson MD [address] [address] Social History Tobacco Use Types [...] COVID-19 02/15/2020 02/15/2020 02/16/2020 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 Rule Out COVID-19 01/05/2021 01/05/2021 01/06/2021 12:57 PM CDT ESBL 01/05/2021 01/05/2021 Rule Out COVID-19 06/30/2021 06/30/2021 07/01/2021 9:34 AM CDT Rule Out COVID-19 07/25/2021 07/25/2021 07/25/2021 8:02 PM CDT documented as of this encounter Care Teams Circular Knife Machine Cutter Relationship Specialty Start Date End Date Dixon Carson MD PCP - General 08/10/03 07/21/09 Mingo Aldana MD PCP - General Family Practice 07/22/09 07/12/14 Shahida Sutton APRN GOURMET COFFEE ATTENDANT PCP - General Nurse Practitioner 08/17/14 08/04/21 Shahida Sutton APRN GOURMET COFFEE ATTENDANT PCP - Assigned PCP 07/12/14 05/07/18 Paula Reza MD [address] [facility] [address] [place] [address] PCP - General Internal Medicine 08/05/21 Shahida Sutton APRN GOURMET COFFEE ATTENDANT Assigned PCP 07/12/14 09/30/21 Carolynn Ramon, KASIE Personal Advocate & Liaison (PAL) 12/17/18 08/07/21 [place] [address] [address] [place] [address] Assigned Musculoskeletal Provider 12/26/19 08/21/20 Brady Lion MD Assigned Heart and Vascular Provider 12/26/19 08/14/20 Nima France PA-C [address] [place] [address] Assigned Surgical Provider 05/19/20 08/21/20 Camille Chandler PA-C [address] [facility] [address] [place], [place] [address] Assigned Neuroscience Provider 05/19/20 09/14/20 Anabela Barakat APRN GOURMET COFFEE ATTENDANT 1700 [place] [address] Assigned Heart and Vascular Provider 08/15/20 08/05/21 Nima France PA-C [address] [facility] 450 [place] [address] Assigned Musculoskeletal Provider 08/22/20 11/13/20 [place] [address] [place], [place] [address] Assigned Musculoskeletal Provider 11/14/20 12/04/20 Fawad York MD [address] [place], [place] [address] Assigned Musculoskeletal Provider 12/05/20 02/05/21 Roopa Almonte MD [address] [facility] 200 [place] [address] Endocrinology, Diabetes, and Metabolism 01/19/21 [place] [address] [address] [facility] [address] [place] [address] Assigned Musculoskeletal Provider 02/06/21 09/16/21 Maryse Burton PA-C [address] [place] [address] Physician Child Welfare Counselor Dermatology 04/14/21 Marquita Starkey MD [address] [facility] 200 [place] [address] Internal Medicine 05/06/21 05/06/21 Roopa Almonte MD [address] [facility] 200 [place] [address] Hospitalist Endocrinology, Diabetes, and Metabolism 05/30/21 Griffin Joshi MD [address] [place] [address] Cardiovascular Disease 07/25/21 Rina Magallon, RN Lead Edm Operator 07/29/21 07/11/22 Griffin Joshi MD [address] [place] [address] Assigned Heart and Vascular Provider 08/06/21 10/07/21 Roopa Almonte MD [address] [place], [place] [address] Assigned Endocrinology Provider 09/10/21 [place] [address] [facility] [place] [address] Assigned Musculoskeletal Provider 09/17/21 10/14/21 Lydia Bernstein PA-C [address] [place] [address] Assigned PCP 10/01/21 10/21/21 Rosa Maria Love CHW Community Health Worker 10/06/21 [place] [address] [place] [address] Assigned Musculoskeletal Provider 10/15/21 04/26/23 Paula Reza MD [address] [place] [address] Assigned PCP 10/22/21 12/23/21 Keerthi Miner APRN GOURMET COFFEE ATTENDANT [address] [place] [address] Assigned Heart and Vascular Provider 10/08/21 02/10/22 Shahida Sutton APRN GOURMET COFFEE ATTENDANT Assigned PCP 12/24/21 03/24/22 Porsha Michaels APRN GOURMET COFFEE ATTENDANT [address] [place] [address] Assigned Heart and Vascular Provider 02/11/22 05/12/22 Paula Reza MD [address] [place] [address] Assigned PCP 03/25/22 04/07/22 Shahida Sutton APRN GOURMET COFFEE ATTENDANT [address] [place] [address] Assigned PCP 04/08/22 06/30/22 Daylin Ludwig EP [facility] [address] [place] [address] Cardiac Rehabilitation Therapist 05/16/23 Laurel Velasquez MD [address] [place] [address] Assigned Heart and Vascular Provider 05/13/22 06/30/22 Daylin Ludwig EP [facility] [address] [place] [address] Cardiac Rehabilitation Therapist 06/08/22 06/09/23 Paula Reza MD [address] [facility] [address] [place], [place] [address] Assigned PCP 07/01/22 07/07/22 Porsha Michaels APRN GOURMET COFFEE ATTENDANT [address] [place] [address] Assigned Heart and Vascular Provider 07/01/22 07/07/22 Laurel Velasquez MD [address] [place] [address] Assigned Heart and Vascular Provider 07/08/22 08/04/22 Shahida Sutton, EMPLOYMENT ADJUDICATOR GOURMET COFFEE ATTENDANT Assigned PCP 07/08/22 09/08/22 Marilin Montaño, GOURMET COFFEE ATTENDANT [address] [place] [address] Assigned Heart and Vascular Provider 08/05/22 Esha Dewitt MD [address] [place] [address] 36 [place], [place] [address] Gastroenterology 09/06/22 Heather Mosquera MD [address] [place] [address] Internal Medicine 09/06/22 Paula Reza MD [address] [place] [address] Assigned PCP 09/09/22 01/05/23 Esha Dewitt MD [address] [facility] 36 [place], [place] [address] Assigned Gastroenterology Provider 09/23/22 Valdo Escamilla PA-C [address] [facility] [address] [place] [address] Assigned Neuroscience Provider 09/30/22 Nohelia Abarca PA-C [address] [place], [place] [address] Physician Child Welfare Counselor Gastroenterology 10/03/22 Heather Mosquera MD [address] [place] [address] Assigned PCP 01/06/23 Fawad York MD [address] [place], [place] [address] Assigned Musculoskeletal Provider 04/27/23 06/25/23 documented as of this encounter
--- OUTSIDE RECORDS SUMMARY | 2023-09-21 08:39 | XMS_ITS | Encounter Summary ---
Author Organization [facility] Address [address] [place] [address] Care Team Providers Care Applications Coordinator Name Role Phone Dixon Carson MD Primary Care Provider Mingo Aldana MD Primary Car e Provider Shahida Sutton BLOW MOLDING MACHINE OPERATOR TRAVEL GUIDE Primary Care Provi ford Unavailable Herman, Shahida Cummings APRN TRAVEL GUIDE Unavailable Un available Herman, Shahida Cummings APRN TRAVEL GUIDE Unavailable Un available Carolynn Ramon RN Unavailable [phone] Augustine Callaway MD Unavailable Brady Lion MD Unavailable Un available Nima FranceC Unavailable [phone] Camille Chandler PA-C Unavailable [phone] Anabela Barakat APRN TRAVEL GUIDE Unavailable Nima FranceC Unavailable [phone] Basilio Morillo DO Unavailable [phone] Fawad York MD Unavailable [phone] Roopa Almotne MD Unavailable [phone] Augustine Callaway MD Unavailable Maryse Burton [...] Paula Reza MD Unavailable Keerthi Miner APRN TRAVEL GUIDE Unavailable Herman, Shahida Cummings APRN TRAVEL GUIDE Unavailable Un available Porsha Michaels APRN TRAVEL GUIDE Unavailable [phone] Paula Reza MD Unavailable Herman, Shahida Cummings APRN TRAVEL GUIDE Unavailable Un available Daylin Ludwig Unavailable [phone] Laurel Velasquez MD Unavailable Daylin Ludwig Unavailable [phone] Paula Reza MD Unavailable Porsha Michaels APRN TRAVEL GUIDE Unavailable [phone] Laurel Velasquez MD Unavailable Herman, Shahida Cummings APRN TRAVEL GUIDE Unavailable Un available Marilin Montaño TRAVEL GUIDE Unavailable [phone] Esha Dewitt MD Unavailable [phone] Heather Mosquera MD Unavailable [phone] Paula Reza MD Unavailable Esha Dewitt MD Unavailable [phone] Valdo Escamilla Deo PAAna MariaC Unavailable Nohelia AbarcaC Unavailable [phone] Heather Mosquera MD Unavailable Fawad York MD Unavailable Reason for Visit * Reason Onset Date Comments Refill Request 02/03/2008 Rickie Cohen Encounter Details Date Type Department Care Team (Late st Contact Info) Description 02/02/2008 My[facility] Refill [address] [address] Dixon Carson MD [address] [address] Refill Request (Rickie Cohen) Social History Tobacco [...] Last Filled: 01/07/08 #30 Sonia Dodd RN. TH RECORDS TECHNOLOGY TEACHER * Telephone Encounter - Sonia Dodd - 02/03/2008 9:06 AM CSTMessage from MyChart: Original authorizing provider: Dixon Terrell would like a refill of the following medications: AMBIEN 10 MG OR TABS [Dixon Carson MD] Preferred pharmacy: [facility] Comment: TH RECORDS TECHNOLOGY TEACHER documented in this encounter Plan of Treatment Not on file documented as of this encounter Visit Diagnoses Diagnosis Insomnia with sleep apnea, unspecified documented in this encounter Additional Health Concerns Infection Onset Date Last Indicated Resolved Time Rule Out COVID-19 02/15/2020 02/15/2020 02/16/2020 2:32 PM HEALTH RECORDS TECHNOLOGY TEACHER Rule Out COVID-19 01/05/2021 01/05/2021 01/06/2021 12:57 PM CDT ESBL 01/05/2021 01/05/2021 Rule Out COVID-19 06/30/2021 06/30/2021 07/01/2021 9:34 AM CDT Rule Out COVID-19 07/25/2021 07/25/2021 07/25/2021 8:02 PM CDT documented as of this encounter Care Teams Applications Coordinator Relationship Specialty Start Date End Date Dixon Carson MD PCP - General 08/10/03 07/21/09 Mingo Aldana MD PCP - General Family Practice 07/22/09 07/12/14 Shahida Sutton APRN TRAVEL GUIDE PCP - General Nurse Practitioner 08/17/14 08/04/21 Shahida Sutton APRN TRAVEL GUIDE PCP - Assigned PCP 07/12/14 05/07/18 Paula Reza MD [address] [address] PCP - General Internal Medicine 08/05/21 Shhaida Sutton APRN TRAVEL GUIDE Assigned PCP 07/12/14 09/30/21 Carolynn Ramon, KASIE Personal Advocate & Liaison (PAL) 12/17/18 08/07/21 [place] [address] [place] [address] Assigned Musculoskeletal Provider 12/26/19 08/21/20 Brady Lion MD Assigned Heart and Vascular Provider 12/26/19 08/14/20 Nima France PA-C [address] [facility] [address] [place] [address] Assigned Surgical Provider 05/19/20 08/21/20 Camille Chandler PA-C [address] [facility] [address] [facility] [address] [place] [address] Assigned Neuroscience Provider 05/19/20 09/14/20 Anabela Barakat APRN TRAVEL GUIDE [address] [place] [address] Assigned Heart and Vascular Provider 08/15/20 08/05/21 Nima France PA-C [address] [facility] [address] [place] [address] Assigned Musculoskeletal Provider 08/22/20 11/13/20 [place] [address] [facility] [place] [address] Assigned Musculoskeletal Provider 11/14/20 12/04/20 Fawad York MD [address] [place] [address] Assigned Musculoskeletal Provider 12/05/20 02/05/21 Roopa Almonte MD [address] [facility] [address] [place] [address] Endocrinology, Diabetes, and Metabolism 01/19/21 [place] [address] [facility] [address] [place] [address] Assigned Musculoskeletal Provider 02/06/21 09/16/21 Maryse Burton, PA-C [address] [place] [address] Physician Crm Campaign Manager Dermatology 04/14/21 Marquita Starkey MD [address] [facility] [address] [place] [address] Internal Medicine 05/06/21 05/06/21 Roopa Almonte MD [address] [facility] [address] [place] [address] Hospitalist Endocrinology, Diabetes, and Metabolism 05/30/21 Griffin Joshi MD [address] [facility] [address] [place] [address] Cardiovascular Disease 07/25/21 Rina Magallon, RN Lead Packaging Line Attendant 07/29/21 07/11/22 Griffin Joshi MD [address] [place] [address] Assigned Heart and Vascular Provider 08/06/21 10/07/21 Roopa Almonte MD [address] [facility] [address] [place], [place] [address] Assigned Endocrinology Provider 09/10/21 [place] [address] [facility] [place] [address] Assigned Musculoskeletal Provider 09/17/21 10/14/21 Lydia Bernstein, TRACEY [address] [place] [address] Assigned PCP 10/01/21 10/21/21 Rosa Maria Love CHW Community Health Worker 10/06/21 [place] [address] [facility] [address] [place] [address] Assigned Musculoskeletal Provider 10/15/21 04/26/23 Paula Reza MD [address] [place], [place] [address] Assigned PCP 10/22/21 12/23/21 Keerthi Miner APRN TRAVEL GUIDE [address] [place] [address] Assigned Heart and Vascular Provider 10/08/21 02/10/22 Shahida Sutton APRN TRAVEL GUIDE Assigned PCP 12/24/21 03/24/22 Porsha Michaels APRN TRAVEL GUIDE [address] [place] [address] Assigned Heart and Vascular Provider 02/11/22 05/12/22 Paula Reza MD [address] [place] [address] Assigned PCP 03/25/22 04/07/22 Shahida Sutton APRN TRAVEL GUIDE [address] [place] [address] Assigned PCP 04/08/22 06/30/[address] [facility] [address] [place] [address] Cardiac Rehabilitation Therapist 05/16/23 Laurel Velasquez MD [address] [place] [address] Assigned Heart and Vascular Provider 05/13/22 06/30/22 Daylin Ludwig, EP [facility] [address] [place] [address] Cardiac Rehabilitation Therapist 06/08/22 06/09/23 Paula Reza MD [address] [place] [address] Assigned PCP 07/01/22 07/07/22 Porsha Michaels APRN TRAVEL GUIDE [address] [place] [address] Assigned Heart and Vascular Provider 07/01/22 07/07/22 Laurel Velasquez MD [address] [place] [address] Assigned Heart and Vascular Provider 07/08/22 08/04/22 Shahida Sutton, BLOW MOLDING MACHINE OPERATOR TRAVEL GUIDE Assigned PCP 07/08/22 09/08/22 Marilin oMntaño, TRAVEL GUIDE [address] [place] [address] Assigned Heart and Vascular Provider 08/05/22 Esha Dewitt MD [address] [place] [address] Gastroenterology 09/06/22 Heather Mosquera MD [address] [place] [address] Internal Medicine 09/06/22 Paula Reza MD [address] [facility] [address] [place], [place] [address] Assigned PCP 09/09/22 01/05/23 Esha Dewitt MD [address] [place] [address] Assigned Gastroenterology Provider 09/23/22 Valdo Escamilla PA-C [address] [place] [address] Assigned Neuroscience Provider 09/30/22 Nohelia Abarca PA-C [address] [place], [place] [address] Physician Crm Campaign Manager Gastroenterology 10/03/22 Heather Mosquera MD [address] [facility] 150 [place], [place] [address] Assigned PCP 01/06/23 Fawad York MD [address] [place], [place] [address] Assigned Musculoskeletal Provider 04/27/23 06/25/23 documented as of this encounter
--- OUTSIDE RECORDS SUMMARY | 2023-09-21 08:39 | XMS_ITS | Encounter Summary ---
Author Organization [facility] Address [address] [place] [address] Care Team Providers Care Quality Controller Name Role Phone Dixon Casron MD Primary Care Provider Mingo Aldana MD Primary Car e Provider Shahdia Sutton CLERICAL OFFICE PSYCHOLOGY TECH Primary Care Provi ford Unavailable Herman, Shahida Cummings APRN PSYCHOLOGY TECH Unavailable Un available Herman, Shahida Cummings APRN PSYCHOLOGY TECH Unavailable Un available Carolynn Ramon RN Unavailable [phone] Augustine Callaway MD Unavailable Brady Lion MD Unavailable Un available Nima FranceC Unavailable [phone] Camille Chandler PA-C Unavailable [phone] Anabela Barakat APRN PSYCHOLOGY TECH Unavailable Nima FranceC Unavailable [phone] Basilio Morillo DO Unavailable [phone] Fawad York MD Unavailable [phone] Roopa Almonte MD Unavailable [phone] Augustine Callaway MD Unavailable Maryse Burton [...] Paula Reza MD Unavailable Keerthi Miner APRN PSYCHOLOGY TECH Unavailable Herman, Shahida Cummings APRN PSYCHOLOGY TECH Unavailable Un available Porsha Michaels APRN PSYCHOLOGY TECH Unavailable [phone] Paula Reza MD Unavailable Herman, Shahida Cummings APRN PSYCHOLOGY TECH Unavailable Un available Daylin Ludwig Unavailable [phone] Laurel Velasquez MD Unavailable Daylin Ludwig Unavailable [phone] Paula Reza MD Unavailable Porsha Michaels APRN PSYCHOLOGY TECH Unavailable [phone] Laurel Velasquez MD Unavailable Herman, Shahida Cummings APRN PSYCHOLOGY TECH Unavailable Un available Marilin Montaño PSYCHOLOGY TECH Unavailable Esha Dewitt MD Unavailable [phone] Heather Mosquera MD Unavailable [phone] Paula Reza MD Unavailable Esha Dewitt MD Unavailable [phone] Valdo Escamilla PA-C Unavailable [phone] Nohelia AbarcaC Unavailable [phone] Heather Mosquera MD Unavailable [phone] Fawad York MD Unavailable [phone] Encounter Details Date Type Department Care Team (Late st Contact Info) Description 10/14/2007 [facility] [address], [address] [place] [address] Dixon Carson MD [address] [address] CHRISTOFER (Obstructive Sleep Apnea); Neck [...] Out COVID-19 02/15/2020 02/15/2020 02/16/2020 2:32 PM CAREER CENTER ADVISOR Rule Out COVID-19 01/05/2021 01/05/2021 01/06/2021 12:57 PM CDT ESBL 01/05/2021 01/05/2021 Rule Out COVID-19 06/30/2021 06/30/2021 07/01/2021 9:34 AM CDT Rule Out COVID-19 07/25/2021 07/25/2021 07/25/2021 8:02 PM CDT documented as of this encounter Care Teams Quality Controller Relationship Specialty Start Date End Date Dixon Carson MD PCP - General 08/10/03 07/21/09 Mingo Aldana MD PCP - General Family Practice 07/22/09 07/12/14 Shahida Sutton APRN PSYCHOLOGY TECH PCP - General Nurse Practitioner 08/17/14 08/04/21 Shahida Sutton APRN PSYCHOLOGY TECH PCP - Assigned PCP 07/12/14 05/07/18 Paula Reza MD [address] [place], [place] [address] PCP - General Internal Medicine 08/05/21 Shahida Sutton APRN PSYCHOLOGY TECH Assigned PCP 07/12/14 09/30/21 Carolynn Ramon RN Personal Advocate & Liaison (PAL) 12/17/18 08/07/21 [place] [address] [place], [place] [address] Assigned Musculoskeletal Provider 12/26/19 08/21/20 Brady Lion MD Assigned Heart and Vascular Provider 12/26/19 08/14/20 Nima France PA-C [address] [facility] [address] [place] [address] Assigned Surgical Provider 05/19/20 08/21/20 Camille Chandler PA-C [address] [facility] [address] [place] [address] Assigned Neuroscience Provider 05/19/20 09/14/20 Anabela Barakat APRN PSYCHOLOGY TECH [address] [place] [address] Assigned Heart and Vascular Provider 08/15/20 08/05/21 Nima France PA-C [address] [facility] [address] [place] [address] Assigned Musculoskeletal Provider 08/22/20 11/13/20 [place] [address] [place] [address] Assigned Musculoskeletal Provider 11/14/20 12/04/20 Fawad York MD [address] [place] [address] Assigned Musculoskeletal Provider 12/05/20 02/05/21 Roopa Almonte MD [address] [place] [address] Endocrinology, Diabetes, and Metabolism 01/19/21 [place] [address] [place] [address] Assigned Musculoskeletal Provider 02/06/21 09/16/21 Maryse Burton PA-C [address] [place] [address] Physician Staff Nurse Anesthetist Dermatology 04/14/21 Marquita Starkey MD [address] [facility] 200 [place], [place] [address] Internal Medicine 05/06/21 05/06/21 Roopa Almonte MD [address] [facility] [address] [place], [place] [address] Hospitalist Endocrinology, Diabetes, and Metabolism 05/30/21 Griffin Joshi MD [address] [facility] [address] [place] [address] Cardiovascular Disease 07/25/21 Rina Magallon, RN Lead Mica Paster 07/29/21 07/11/22 Griffin Joshi MD [address] [facility] [address] [place] [address] Assigned Heart and Vascular Provider 08/06/21 10/07/21 Roopa Almonte MD [address] [facility] [address] [place] [address] Assigned Endocrinology Provider 09/10/21 [place] [address] [facility] [place] [address] Assigned Musculoskeletal Provider 09/17/21 10/14/21 Lydia Bernstein PA-C [address] [place] [address] Assigned PCP 10/01/21 10/21/21 Rosa Maria Love CHW Community Health Worker 10/06/21 [place] [address] [place] [address] Assigned Musculoskeletal Provider 10/15/21 04/26/23 Paula Reza MD [address] [place] [address] Assigned PCP 10/22/21 12/23/21 Keerthi Miner APRN PSYCHOLOGY TECH [address] [place] [address] Assigned Heart and Vascular Provider 10/08/21 02/10/22 Shahida Sutton APRN PSYCHOLOGY TECH Assigned PCP 12/24/21 03/24/22 Porsha Michaels APRN PSYCHOLOGY TECH [address] [place] [address] Assigned Heart and Vascular Provider 02/11/22 05/12/22 Paula Reza MD [address] [place] [address] Assigned PCP 03/25/22 04/07/22 Shahida Sutton APRN PSYCHOLOGY TECH [address] [place] [address] Assigned PCP 04/08/22 06/30/22 Daylin Ludwig, EP [facility] [address] [place] [address] Cardiac Rehabilitation Therapist 05/16/23 Laurel Velasquez MD [address] [place] [address] Assigned Heart and Vascular Provider 05/13/22 06/30/22 Daylin Ludwig, EP [facility] [address] [place] [address] Cardiac Rehabilitation Therapist 06/08/22 06/09/23 Paula Reza MD [address] [place] [address] [place], [place] [address] Assigned PCP 07/01/22 07/07/22 Porsha Michaels APRN PSYCHOLOGY TECH [address] [place] [place] [address] Assigned Heart and Vascular Provider 07/01/22 07/07/22 Laurel Velasquez MD [address] [place] [address] Assigned Heart and Vascular Provider 07/08/22 08/04/22 Shahida Sutton APRN PSYCHOLOGY TECH Assigned PCP 07/08/22 09/08/22 Marilin Montaño, PSYCHOLOGY TECH [address] [place] [address] Assigned Heart and Vascular Provider 08/05/22 Esha Dewitt MD [address] [facility] [address] [place] [address] Gastroenterology 09/06/22 Heather Mosquera MD [address] [place] [address] Internal Medicine 09/06/22 Paula Reza MD [address] [place] [address] Assigned PCP 09/09/22 01/05/23 Esha Dewitt MD [address] [address] Assigned Gastroenterology Provider 09/23/22 Valdo Escamilla PA-C [address] [facility] [address] [place] [address] Assigned Neuroscience Provider 09/30/22 Nohelia Abarca PA-C [address] [place] [address] Physician Staff Nurse Anesthetist Gastroenterology 10/03/22 Heather Mosquera MD [address] [place] [address] Assigned PCP 01/06/23 Fawad York MD [address] [place], [place] [address] Assigned Musculoskeletal Provider 04/27/23 06/25/23 documented as of this encounter
--- OUTSIDE RECORDS SUMMARY | 2023-09-21 08:39 | XMS_ITS | Encounter Summary ---
Author Organization [facility] Address [address] [place] [address] Care Team Providers Care Extension Service Specialist In Charge Name Role Phone Dixon Carson MD Primary Care Provider Mingo Aldana MD Primary Car e Provider Shahida Sutton BINDERY TECHNICIAN RIGGER HELPER Primary Care Provi ford Unavailable Herman, Shahida Cummings APRN RIGGER HELPER Unavailable Un available Herman, Shahida Cummings APRN RIGGER HELPER Unavailable Un available Carolynn Ramon RN Unavailable [phone] Augustine Callaway MD Unavailable Brady Lion MD Unavailable Un available Nima FranceC Unavailable [phone] Camille Chandler PA-C Unavailable [phone] Anabela Barakat APRN RIGGER HELPER Unavailable Nima FranceC Unavailable [phone] Basilio Morillo DO Unavailable [phone] Fawad York MD Unavailable [phone] Roopa Almonte MD Unavailable [phone] Augustine Callaway MD Unavailable Maryse Burton [...] Paula Reza MD Unavailable Keerthi Miner APRN RIGGER HELPER Unavailable Herman, Shahida Cummings APRN RIGGER HELPER Unavailable Un available Porsha Michaels APRN RIGGER HELPER Unavailable [phone] Paula Reza MD Unavailable Herman, Shahida Cummings APRN RIGGER HELPER Unavailable Un available Daylin Ludwig Unavailable [phone] Laurel Velasquez MD Unavailable Daylin Ludwig Unavailable [phone] Paula Reza MD Unavailable Porsha Michaels APRN RIGGER HELPER Unavailable [phone] Laurel Velasquez MD Unavailable Herman, Shahida Cummings APRN RIGGER HELPER Unavailable Un available Marilin Montaño RIGGER HELPER Unavailable Esha Dewitt MD Unavailable [phone] Heather Mosquera MD Unavailable [phone] Paula Reza MD Unavailable Esha Dewitt MD Unavailable [phone] Ayserick Valdo Desouza PA-C Unavailable Nohelia AbarcaC Unavailable [phone] Heather Mosquera MD Unavailable [phone] Fawad York MD Unavailable [phone] Reason for Visit * Reason Onset Date Comments Refill Request 08/28/2008 hydrocodone Encounter Details Date Type Department Care Team (Late st Contact Info) Description 08/28/2008 MyC Refill [address] [address] Dixon Carson MD [address] [address] Refill Request (hydrocodone) Social History Tobacco Use [...] Jones - 08/28/2008 3:08 PM [facility] Mauro Terrell would like a refill of the following medications: HYDROCODONE-ACETAMINOPHEN 10-325 MG OR TABS [Dixon Carson MD] Preferred pharmacy: [facility] Comment: Daily headaches continuing documented in this [...] Out COVID-19 02/15/2020 02/15/2020 02/16/2020 2:32 PM PAIN MANAGEMENT PHYSICIAN Rule Out COVID-19 01/05/2021 01/05/2021 01/06/2021 12:57 PM CDT ESBL 01/05/2021 01/05/2021 Rule Out COVID-19 06/30/2021 06/30/2021 07/01/2021 9:34 AM CDT Rule Out COVID-19 07/25/2021 07/25/2021 07/25/2021 8:02 PM CDT documented as of this encounter Care Teams Extension Service Specialist In Charge Relationship Specialty Start Date End Date Dixon Carson MD PCP - General 08/10/03 07/21/09 Mingo Aldana MD PCP - General Family Practice 07/22/09 07/12/14 Shahida Sutton APRN RIGGER HELPER PCP - General Nurse Practitioner 08/17/14 08/04/21 Shahida Sutton APRN RIGGER HELPER PCP - Assigned PCP 07/12/14 05/07/18 Paula Reza MD [address] [place] [phone] (Work) PCP - General Internal Medicine 08/05/21 Shahida Sutton APRN RIGGER HELPER Assigned PCP 07/12/14 09/30/21 Carolynn Ramon, KASIE Personal Advocate & Liaison (PAL) 12/17/18 08/07/21 [place] [address] [place] [address] Assigned Musculoskeletal Provider 12/26/19 08/21/20 Brady Lion MD Assigned Heart and Vascular Provider 12/26/19 08/14/20 Nima France PA-C [address] [facility] [address] [place] [address] Assigned Surgical Provider 05/19/20 08/21/20 Camille Chandler PA-C [address] [facility] [address] [place] [address] Assigned Neuroscience Provider 05/19/20 09/14/20 Anabela Barakat APRN RIGGER HELPER [address] [place] [address] Assigned Heart and Vascular Provider 08/15/20 08/05/21 Nima France PA-C [address] [facility] [address] [place] [address] Assigned Musculoskeletal Provider 08/22/20 11/13/20 [place] [address] [facility] [place] [address] Assigned Musculoskeletal Provider 11/14/20 12/04/20 Fawad York MD [address] [place], [place] [address] Assigned Musculoskeletal Provider 12/05/20 02/05/21 Roopa Almonte MD [address] [facility] [address] [place] [address] Endocrinology, Diabetes, and Metabolism 01/19/21 [place] [address] [facility] [address] [place] [address] Assigned Musculoskeletal Provider 02/06/21 09/16/21 Maryse Burton PAAna MariaC [address] [place] [address] Physician Junior Network Administrator Dermatology 04/14/21 Marquita Starkey MD [address] [facility] [address] [place] [address] Internal Medicine 05/06/21 05/06/21 Roopa Almonte MD [address] [facility] [address] [place] [address] Hospitalist Endocrinology, Diabetes, and Metabolism 05/30/21 Griffin Joshi MD [address] [facility] [address] [place] [address] Cardiovascular Disease 07/25/21 Rina Magallon, RN Lead Discharge Planner 07/29/21 07/11/22 Griffin Joshi MD [address] [place] [address] Assigned Heart and Vascular Provider 08/06/21 10/07/21 Roopa Almonte MD [address] [facility] [address] [place], [place] [address] Assigned Endocrinology Provider 09/10/21 [place] [address] [facility] [place] [address] Assigned Musculoskeletal Provider 09/17/21 10/14/21 Lydia Bernstein, TRACEY [address] [place] [address] Assigned PCP 10/01/21 10/21/21 Rosa Maria Love CHW Community Health Worker 10/06/21 [place] [address] [facility] [address] [place] [address] Assigned Musculoskeletal Provider 10/15/21 04/26/23 Paula Reza MD [address] [facility] [address] [place], [place] [address] Assigned PCP 10/22/21 12/23/21 Keerthi Miner APRN RIGGER HELPER [address] [place] [address] Assigned Heart and Vascular Provider 10/08/21 02/10/22 Shahida Sutton APRN RIGGER HELPER Assigned PCP 12/24/21 03/24/22 Porsha Michaels APRN RIGGER HELPER [address] [place] [address] Assigned Heart and Vascular Provider 02/11/22 05/12/22 Paula Reza MD [address] [place] [address] Assigned PCP 03/25/22 04/07/22 Shahida Sutton APRN RIGGER HELPER [address] [place] [address] Assigned PCP 04/08/22 06/30/22 Daylin Ludwig, EP [facility] [address] [place] [address] Cardiac Rehabilitation Therapist 05/16/23 Laurel Velasquez MD [address] [place] [address] Assigned Heart and Vascular Provider 05/13/22 06/30/22 Daylin Ludwig, EP [facility] [address] [place] [address] Cardiac Rehabilitation Therapist 06/08/22 06/09/23 Paula Reza MD [address] [place] [address] Assigned PCP 07/01/22 07/07/22 Porsha Michaels APRN RIGGER HELPER [address] [place] [address] Assigned Heart and Vascular Provider 07/01/22 07/07/22 Laurel Velasquez MD [address] [place] [address] Assigned Heart and Vascular Provider 07/08/22 08/04/22 Shahida Sutton, BINDERY TECHNICIAN RIGGER HELPER Assigned PCP 07/08/22 09/08/22 Marilin Montaño, RIGGER HELPER [address] [place] [address] Assigned Heart and Vascular Provider 08/05/22 Esha Dewitt MD [address] [place] [address] Gastroenterology 09/06/22 Heather Mosquera MD [address] [place] [address] Internal Medicine 09/06/22 Paula Reza MD [address] [facility] [address] [place], [place] [address] Assigned PCP 09/09/22 01/05/23 Esha Dewitt MD [address] [address] Assigned Gastroenterology Provider 09/23/22 Valdo Escamilla PA-C [address] [place] [address] Assigned Neuroscience Provider 09/30/22 Nohelia Abarca PA-C [address] [place] [address] Physician Junior Network Administrator Gastroenterology 10/03/22 Heather Mosquera MD [address] [facility] 150 [place], [place] [address] Assigned PCP 01/06/23 Fawad York MD [address] [place] [address] Assigned Musculoskeletal Provider 04/27/23 06/25/23 documented as of this encounter
--- OUTSIDE RECORDS SUMMARY | 2023-09-21 08:40 | XMS_ITS | Encounter Summary ---
Author Organization [place] Address [address] [place] [address] Care Team Providers Care Recycling Tech Name Role Phone Dixon Carson MD Primary Care Provider Mingo Aldana MD Primary Car e Provider Shahida Sutton FOOD CHECKER MIXING AND DISPENSING SUPERVISOR Primary Care Provi ford Unavailable Herman, Shahida Cummings APRN MIXING AND DISPENSING SUPERVISOR Unavailable Un available Herman, Shahida Cummings APRN MIXING AND DISPENSING SUPERVISOR Unavailable Un available Carolynn Ramon RN Unavailable [phone] Augustine Callaway MD Unavailable Brady Lion MD Unavailable Un available Nima FranceC Unavailable [phone] Camille Chandler PA-C Unavailable [phone] Anabela Barakat APRN MIXING AND DISPENSING SUPERVISOR Unavailable Nima FranceC Unavailable [phone] Basilio Morillo DO Unavailable [phone] Fawad York MD Unavailable [phone] Roopa Almonte MD Unavailable [phone] Augustine Callaway MD Unavailable Maryse Burton [...] Paula Reza MD Unavailable Keerthi Miner APRN MIXING AND DISPENSING SUPERVISOR Unavailable Herman, Shahida Cummings APRN MIXING AND DISPENSING SUPERVISOR Unavailable Un available Porsha Michaels APRN MIXING AND DISPENSING SUPERVISOR Unavailable [phone] Paula Reza MD Unavailable Herman, Shahida Cummings APRN MIXING AND DISPENSING SUPERVISOR Unavailable Un available Daylin Ludwig Unavailable [phone] Laurel Velasquez MD Unavailable Daylin Ludwig Unavailable [phone] Paula Reza MD Unavailable Porsha Michaels APRN MIXING AND DISPENSING SUPERVISOR Unavailable [phone] Laurel Velasquez MD Unavailable Herman, Shahida Cummings APRN MIXING AND DISPENSING SUPERVISOR Unavailable Un available Marilin Montaño MIXING AND DISPENSING SUPERVISOR Unavailable [phone] Esha Dewitt MD Unavailable [phone] Heather Mosquera MD Unavailable Paula Reza MD Unavailable Esha Dewitt MD Unavailable [phone] Ayserick Lyle Deo WEBB Unavailable Nohelia AbarcaC Unavailable [phone] Heather Mosquera MD Unavailable Fawad York MD Unavailable Reason for Visit * Reason Onset Date Comments MyChart Communication 06/12/2006 Encounter Details Date Type Department Care Team (Latest Contact Info) Description 06/12/2006 MyC Medical [address] [address] Dixon Carson MD [address] [address] MyChart Communication Social History Tobacco Use Types [...] Out COVID-19 02/15/2020 02/15/2020 02/16/2020 2:32 PM LITIGATOR Rule Out COVID-19 01/05/2021 01/05/2021 01/06/2021 12:57 PM CDT ESBL 01/05/2021 01/05/2021 Rule Out COVID-19 06/30/2021 06/30/2021 07/01/2021 9:34 AM CDT Rule Out COVID-19 07/25/2021 07/25/2021 07/25/2021 8:02 PM CDT documented as of this encounter Care Teams Recycling Tech Relationship Specialty Start Date End Date Dixon Carson MD PCP - General 08/10/03 07/21/09 Mingo Aldana MD PCP - General Family Practice 07/22/09 07/12/14 Shahida Sutton APRN MIXING AND DISPENSING SUPERVISOR PCP - General Nurse Practitioner 08/17/14 08/04/21 Shahida Sutton APRN MIXING AND DISPENSING SUPERVISOR PCP - Assigned PCP 07/12/14 05/07/18 Paula Reza MD [address] [address] PCP - General Internal Medicine 08/05/21 Shahida Sutton APRN MIXING AND DISPENSING SUPERVISOR Assigned PCP 07/12/14 09/30/21 Carolynn Ramon RN Personal Advocate & Liaison (PAL) 12/17/18 08/07/21 [place] [address] [place] [address] Assigned Musculoskeletal Provider 12/26/19 08/21/20 Brady Lion MD Assigned Heart and Vascular Provider 12/26/19 08/14/20 Nima France PA-C [address] [address] [place], [place] [address] Assigned Surgical Provider 05/19/20 08/21/20 Camille Chandler PA-C [address] [place] [place] [address] Assigned Neuroscience Provider 05/19/20 09/14/20 Anabela Barakat APRN MIXING AND DISPENSING SUPERVISOR [address] [place] [address] Assigned Heart and Vascular Provider 08/15/20 08/05/21 Nima France PA-C [address] [address] Assigned Musculoskeletal Provider 08/22/20 11/13/20 [place] [address] [facility] [place] [address] Assigned Musculoskeletal Provider 11/14/20 12/04/20 Fawad York MD [address] [place] [address] Assigned Musculoskeletal Provider 12/05/20 02/05/21 Roopa Almonte MD [address] [facility] 200 [place] [address] Endocrinology, Diabetes, and Metabolism 01/19/21 [place] [address] [facility] 300 [place] [address] Assigned Musculoskeletal Provider 02/06/21 09/16/21 Maryse Burton PA-C [address] [place] [address] Physician Customer Associate Dermatology 04/14/21 Marquita Starkey MD [address] [facility] 200 [place] [address] Internal Medicine 05/06/21 05/06/21 Roopa Almonte MD [address] [facility] 200 [place] [address] Hospitalist Endocrinology, Diabetes, and Metabolism 05/30/21 Griffin Joshi MD [address] [facility] [address] [place] [address] Cardiovascular Disease 07/25/21 Rina Magallon, RN Lead Film Editor Supervisor 07/29/21 07/11/22 Griffin Joshi MD [address] [facility] [address] [place] [address] Assigned Heart and Vascular Provider 08/06/21 10/07/21 Roopa Almonte MD [address] [facility] 200 [place] [address] Assigned Endocrinology Provider 09/10/21 [place] [address] [facility] [place] [address] Assigned Musculoskeletal Provider 09/17/21 10/14/21 Lydia Bernstein PA-C [address] [place] [address] Assigned PCP 10/01/21 10/21/21 Rosa Maria Love [facility] Community Health Worker 10/06/21 [place] [address] [facility] [address] [place] [address] Assigned Musculoskeletal Provider 10/15/21 04/26/23 Paula Reza MD [address] [facility] [address] [place] [address] Assigned PCP 10/22/21 12/23/21 Keerthi Miner APRN MIXING AND DISPENSING SUPERVISOR [address] [place] [address] Assigned Heart and Vascular Provider 10/08/21 02/10/22 Shahida Sutton APRN MIXING AND DISPENSING SUPERVISOR Assigned PCP 12/24/21 03/24/22 Porsha Michaels APRN MIXING AND DISPENSING SUPERVISOR [address] [place] [address] Assigned Heart and Vascular Provider 02/11/22 05/12/22 Paula Reza MD [address] [place] [address] Assigned PCP 03/25/22 04/07/22 Shahida Sutton APRN MIXING AND DISPENSING SUPERVISOR [address] [place] [address] Assigned PCP 04/08/22 06/30/22 Daylin Ludwig, [facility] [address] [place] [address] Cardiac Rehabilitation Therapist 05/16/23 Laurel Velasquez MD [address] [place] [address] Assigned Heart and Vascular Provider 05/13/22 06/30/22 Daylin Ludwig, [facility] [address] [place] [address] Cardiac Rehabilitation Therapist 06/08/22 06/09/23 Paula Reza MD [address] [place] [address] Assigned PCP 07/01/22 07/07/22 Porsha Michaels APRN MIXING AND DISPENSING SUPERVISOR [address] [place] [address] Assigned Heart and Vascular Provider 07/01/22 07/07/22 Laurel Velasquez MD [address] [place] [address] Assigned Heart and Vascular Provider 07/08/22 08/04/22 Shahida Sutton APRN MIXING AND DISPENSING SUPERVISOR Assigned PCP 07/08/22 09/08/22 Marilin Montaño CNP [address] [facility] [place] [address] Assigned Heart and Vascular Provider 08/05/22 Esha Dewitt MD [address] [facility] 36 [place], [place] [address] MD Gastroenterology 09/06/22 Heather Mosquera MD [address] [facility] [address] [place], [place] [address] Internal Medicine 09/06/22 Paula Reza MD [address] [facility] [address] [place], [place] [address] Assigned PCP 09/09/22 01/05/23 Esha Dewitt MD [address] [facility] [address] [place], [place] [address] Assigned Gastroenterology Provider 09/23/22 Valdo Escamilla PA-C [address] [facility] [address] [place] [address] Assigned Neuroscience Provider 09/30/22 Nohelia Abarca PA-C [address] [place] [address] Physician Customer Associate Gastroenterology 10/03/22 Heather Mosquera MD [address] [facility] 150 [place] [address] Assigned PCP 01/06/23 Fawad York MD 909 [place] [address] Assigned Musculoskeletal Provider 04/27/23 06/25/23 documented as of this encounter
--- OUTSIDE RECORDS SUMMARY | 2023-09-21 08:40 | XMS_ITS | Encounter Summary ---
Author Organization [facility] Address [address] [place] [address] Care Team Providers Care Electric Sign Wirer Name Role Phone Dixon Carson MD Primary Care Provider Mingo Aldana MD Primary Car e Provider Shahida Sutton LEGAL FINANCIAL SPECIALIST EXERCISE MANAGER Primary Care Provi ford Unavailable Herman, Shahida Cummings APRN EXERCISE MANAGER Unavailable Un available Herman, Shahida Cummings APRN EXERCISE MANAGER Unavailable Un available Carolynn Ramon RN Unavailable [phone] Augustine Callaway MD Unavailable Brady Lion MD Unavailable Un available Nima FranceC Unavailable [phone] Camille Chandler PA-C Unavailable [phone] Anabela Barakat APRN EXERCISE MANAGER Unavailable Nima FranceC Unavailable [phone] Basilio Morillo DO Unavailable [phone] Fawad York MD Unavailable [phone] Roopa Almonte MD Unavailable [phone] Augustine Callaway MD Unavailable Maryse Burton PA-C Unavailable Marquita Starkey MD Unavailable Roopa Almonte MD Unavailable [phone] Griffin Joshi MD Unavailable Rina Magallon RN Unavailable Paula Reza MD Primary Care Provider [phone] Griffin Joshi MD Unavailable Roopa Almonte MD Unavailable [facility] hospital[facility]ilio win DO Unavailable Lydia Bernstein PA-C Unavailable Rosa Maria Love Unavailable [phone] Augustine Callaway MD Unavailable Paula Reza MD Unavailable Keerthi Miner APRN EXERCISE MANAGER Unavailable Herman, Shahida Cummings APRN EXERCISE MANAGER Unavailable Un available Porsha Michaels APRN EXERCISE MANAGER Unavailable [phone] Paula Reza MD Unavailable Herman, Shahida Cummings APRN EXERCISE MANAGER Unavailable Un available Daylin Ludwig Unavailable [phone] Laurel Velasquez MD Unavailable Daylin Ludwig Unavailable [phone] Paula Reza MD Unavailable Porsha Michaels APRN EXERCISE MANAGER Unavailable [phone] Laurel Velasquez MD Unavailable Herman, Shahida Cummings APRN EXERCISE MANAGER Unavailable Un available Marilin Montaño EXERCISE MANAGER Unavailable Esha Dewitt MD Unavailable [phone] Heather Mosquera MD Unavailable [phone] Paula Reza MD Unavailable Esha Dewitt MD Unavailable [phone] Valdo Escamilla PA-C Unavailable Nohelia AbarcaC Unavailable [phone] Heather Mosquera MD Unavailable [phone] Fawad York MD Unavailable Encounter Details Date Type Department Care Team (Late st Contact Info) Description 04/17/2007 [facility] [address] [address] Dixon Carson MD [address] [address] Social History Tobacco Use Types [...] Out COVID-19 02/15/2020 02/15/2020 02/16/2020 2:32 PM ACCOUNTING METHODS ANALYST Rule Out COVID-19 01/05/2021 01/05/2021 01/06/2021 12:57 PM CDT ESBL 01/05/2021 01/05/2021 Rule Out COVID-19 06/30/2021 06/30/2021 07/01/2021 9:34 AM CDT Rule Out COVID-19 07/25/2021 07/25/2021 07/25/2021 8:02 PM CDT documented as of this encounter Care Teams Electric Sign Wirer Relationship Specialty Start Date End Date Dixon Carson MD PCP - General 08/10/03 07/21/09 Mingo Aldana MD PCP - General Family Practice 07/22/09 07/12/14 Shahida Sutton APRN EXERCISE MANAGER PCP - General Nurse Practitioner 08/17/14 08/04/21 Shahida Sutton APRN EXERCISE MANAGER PCP - Assigned PCP 07/12/14 05/07/18 Paula Reza MD [address] [facility] [address] [place] [address] PCP - General Internal Medicine 08/05/21 Shahida Sutton APRN EXERCISE MANAGER Assigned PCP 07/12/14 09/30/21 Carolynn Ramon, KASIE Personal Advocate & Liaison (PAL) 12/17/18 08/07/21 [place] [address] [address] [place] [address] Assigned Musculoskeletal Provider 12/26/19 08/21/20 Brady Lion MD Assigned Heart and Vascular Provider 12/26/19 08/14/20 Nima France PA-C [address] [place] [address] Assigned Surgical Provider 05/19/20 08/21/20 Camille Chandler PA-C [address] [facility] [address] [place], [place] [address] Assigned Neuroscience Provider 05/19/20 09/14/20 Anabela Barakat APRN EXERCISE MANAGER [address] [place] [address] Assigned Heart and Vascular Provider 08/15/20 08/05/21 Nima France PA-C [address] [facility] [address] [place] [address] Assigned Musculoskeletal Provider 08/22/20 11/13/20 [place] [address] [place], [place] [address] Assigned Musculoskeletal Provider 11/14/20 12/04/20 Fawad York MD [address] [place], [place] [address] Assigned Musculoskeletal Provider 12/05/20 02/05/21 Roopa Almonte MD [address] [facility] [facility] [address] [place] [address] Endocrinology, Diabetes, and Metabolism 01/19/21 [place] [address] [address] [facility] [address] [place] [address] Assigned Musculoskeletal Provider 02/06/21 09/16/21 Maryse Burton PA-C [address] [place] [address] Physician Pest Controller Dermatology 04/14/21 Marquita Starkey MD [address] [facility] [address] [place] [address] Internal Medicine 05/06/21 05/06/21 Roopa Almonte MD [address] [facility] [address] [place] [address] Hospitalist Endocrinology, Diabetes, and Metabolism 05/30/21 Griffin Joshi MD [address] [place] [address] Cardiovascular Disease 07/25/21 Rina Magallon, RN Lead Pastry Chef 07/29/21 07/11/22 Griffin Joshi MD [address] [place] [id number] Assigned Heart and Vascular Provider 08/06/21 10/07/21 Roopa Almonte MD [address] [place], [place] [address] Assigned Endocrinology Provider 09/10/21 [place] [address] [employer] [facility] [employer] [facility] [place] [address]25099 Assigned Musculoskeletal Provider 09/17/21 10/14/21 Lydia Bernstein PA-C [address] [place] [address] Assigned PCP 10/01/21 10/21/21 Rosa Maria Love CHW Community Health Worker 10/06/21 [place] [address] [place] [address] Assigned Musculoskeletal Provider 10/15/21 04/26/23 Paula Reza MD [address] [place] [address] Assigned PCP 10/22/21 12/23/21 Keerthi Miner APRN EXERCISE MANAGER [address] [place] [address] Assigned Heart and Vascular Provider 10/08/21 02/10/22 Shahida Sutton APRN EXERCISE MANAGER Assigned PCP 12/24/21 03/24/22 Porsha Michaels APRN EXERCISE MANAGER [address] [place] [address] Assigned Heart and Vascular Provider 02/11/22 05/12/22 Paula Reza MD [address] [place] [address] Assigned PCP 03/25/22 04/07/22 Shahida Sutton APRN EXERCISE MANAGER [address] [place] [address] Assigned PCP 04/08/22 06/30/22 Daylin Ludwig EP [facility] [address] [place] [address] Cardiac Rehabilitation Therapist 05/16/23 Laurel Velasquez MD [address] [place] [address] Assigned Heart and Vascular Provider 05/13/22 06/30/22 Daylin Ludwig EP [facility] [address] [place] 8017[address] Cardiac Rehabilitation Therapist 06/08/22 06/09/23 Paula Reza MD [address] [facility] [address] [place], [place] [address] Assigned PCP 07/01/22 07/07/22 Porsha Michaels APRN EXERCISE MANAGER [address] [place] [address] Assigned Heart and Vascular Provider 07/01/22 07/07/22 Laurel Velasquez MD [address] [place] [address] Assigned Heart and Vascular Provider 07/08/22 08/04/22 Shahida Sutton, LEGAL FINANCIAL SPECIALIST EXERCISE MANAGER Assigned PCP 07/08/22 09/08/22 Marilin Montaño, EXERCISE MANAGER [address] [place] [address] Assigned Heart and Vascular Provider 08/05/22 Esha Dewitt MD [address] [place] [address] [address] [place], [place] [address] Gastroenterology 09/06/22 Heather Mosquera MD [address] [place] [address] Internal Medicine 09/06/22 Paula Reza MD [address] [place] [address] Assigned PCP 09/09/22 01/05/23 Esha Dewitt MD 420 [facility] 36 [place], [place] [address] Assigned Gastroenterology Provider 09/23/22 Valdo Escamilla PA-C [address] [facility] [address] [place] [address] Assigned Neuroscience Provider 09/30/22 Nohelia Abarca PA-C [address] [place], [place] [address] Physician Pest Controller Gastroenterology 10/03/22 Heather Mosquera MD [address] [place] [address] Assigned PCP 01/06/23 Fawad York MD [address] [place], [place] [address] Assigned Musculoskeletal Provider 04/27/23 06/25/23 documented as of this encounter
--- OUTSIDE RECORDS SUMMARY | 2023-09-21 08:40 | XMS_ITS | Encounter Summary ---
Author Organization [facility] Address [address] [place] [address] Care Team Providers Care Medicine Teacher Name Role Phone Dixon Carson MD Primary Care Provider Mingo Aldana MD Primary Car e Provider Shahida Sutton HARD CANDY BATCH MIXER INTERNATIONAL CONTROLLER Primary Care Provi ford Unavailable Herman, Shahida Cummings APRN INTERNATIONAL CONTROLLER Unavailable Un available Herman, Shahida Cummings APRN INTERNATIONAL CONTROLLER Unavailable Un available Carolynn Ramon RN Unavailable [phone] Augustine Callaway MD Unavailable Brady Lion MD Unavailable Un available Nima FranceC Unavailable [phone] Camille Chandler PA-C Unavailable [phone] Anabela Barakat APRN INTERNATIONAL CONTROLLER Unavailable Nima FranceC Unavailable [phone] Basilio Morillo DO Unavailable [phone] Fawad York MD Unavailable [phone] Roopa Almonte MD Unavailable [phone] Augustine Callaway MD Unavailable Maryse Burtno PA-C Unavailable Marquita Starkey MD Unavailable Roopa Almonte MD Unavailable [phone] Griffin Joshi MD Unavailable Rina Magallon RN Unavailable Paula Reza MD Primary Care Provider [phone] Griffin Joshi MD Unavailable Roopa Almonte MD Unavailable [facility] hospitalBasilio win DO Unavailable Lydia Bernstein PA-C Unavailable Rosa Maria Love Unavailable [phone] Augustine Callaway MD Unavailable Paula Reza MD Unavailable Keerthi Miner APRN INTERNATIONAL CONTROLLER Unavailable Herman, Shahida Cummings APRN INTERNATIONAL CONTROLLER Unavailable Un available Porsha Michaels APRN INTERNATIONAL CONTROLLER Unavailable [phone] Paula Reza MD Unavailable Herman, Shahida Cummings APRN INTERNATIONAL CONTROLLER Unavailable Un available Daylin Ludwig Unavailable [phone] Laurel Velasquez MD Unavailable Daylin Ludwig Unavailable [phone] Paula Reza MD Unavailable Porsha Michaels APRN INTERNATIONAL CONTROLLER Unavailable [phone] Laurel Velasquez MD Unavailable Herman, Shahida Cummings APRN INTERNATIONAL CONTROLLER Unavailable Un available Marilin Montaño INTERNATIONAL CONTROLLER Unavailable Esha Dewitt MD Unavailable [phone] Heather Mosquera MD Unavailable Paula Reza MD Unavailable Esha Dewitt MD Unavailable [phone] Ayserick Valdo Desouza PA-C Unavailable [phone] Nohelia Abarca PA-C Unavailable [phone] Heather Mosquera MD Unavailable [phone] Fawad York MD Unavailable [phone] Reason for Visit * Reason Onset Date Comments MyChart Communication 08/22/2006 nexium Encounter Details Date Type Department Care Team (Late st Contact Info) Description 08/22/[address] [facility] [address] [address] Dixon Carson MD [address] [address] MyChart Communication (nexium) Social History Tobacco Use [...] Cordero - 08/22/2006 1:12 PM CDTMessage from [facility]: Original authorizing provider: Olivier Terrell would like a refill of the following medications: NEXIUM 40 MG OR CPDR [Olivier Frances MD] Preferred pharmacy: [facility] Comment: Thank you for your efforts on [...] Out COVID-19 02/15/2020 02/15/2020 02/16/2020 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 Rule Out COVID-19 01/05/2021 01/05/2021 01/06/2021 12:57 PM CDT ESBL 01/05/2021 01/05/2021 Rule Out COVID-19 06/30/2021 06/30/2021 07/01/2021 9:34 AM CDT Rule Out COVID-19 07/25/2021 07/25/2021 07/25/2021 8:02 PM CDT documented as of this encounter Care Teams Medicine Teacher Relationship Specialty Start Date End Date Dixon Carson MD PCP - General 08/10/03 07/21/09 Mingo Aldana MD PCP - General Family Practice 07/22/09 07/12/14 Shahida Sutton APRN INTERNATIONAL CONTROLLER PCP - General Nurse Practitioner 08/17/14 08/04/21 Shahida Sutton APRN INTERNATIONAL CONTROLLER PCP - Assigned PCP 07/12/14 05/07/18 Paula Reza MD [address] [address] PCP - General Internal Medicine 08/05/21 Shahida Sutton APRN INTERNATIONAL CONTROLLER Assigned PCP 07/12/14 09/30/21 Carolynn Ramon RN Personal Advocate & Liaison (PAL) 12/17/18 08/07/21 [place] [address] [place] [address] Assigned Musculoskeletal Provider 12/26/19 08/21/20 Brady Lion MD Assigned Heart and Vascular Provider 12/26/19 08/14/20 Nima France PA-C [address] [facility] [address] [place] [address] [place] [address] Assigned Surgical Provider 05/19/20 08/21/20 Camille Chandler PA-C [address] [facility] [place] [address] [place] [address] Assigned Neuroscience Provider 05/19/20 09/14/20 Anabela Barakat APRN INTERNATIONAL CONTROLLER [address] [place] [address] Assigned Heart and Vascular Provider 08/15/20 08/05/21 Nima France PA-C [address] [place] [address] [place] [address] Assigned Musculoskeletal Provider 08/22/20 11/13/20 [place] [address] [facility] [place] [address] Assigned Musculoskeletal Provider 11/14/20 12/04/20 Fawad York MD [address] [place] [address] Assigned Musculoskeletal Provider 12/05/20 02/05/21 Roopa Almonte MD [address] [facility] 200 [place] [address] Endocrinology, Diabetes, and Metabolism 01/19/21 [place] [address] [facility] 300 [place] [address] Assigned Musculoskeletal Provider 02/06/21 09/16/21 Maryse Burton PA-C 5200 [place] [address] Physician Sports Management Internship Dermatology 04/14/21 Marquita Starkey MD [address] [facility] 200 [place] [address] Internal Medicine 05/06/21 05/06/21 Roopa Almonte MD [address] [facility] 200 [place] [address] Hospitalist Endocrinology, Diabetes, and Metabolism 05/30/21 Griffin Joshi MD [address] [facility] [address] [place] [address] Cardiovascular Disease 07/25/21 Rina Magallon, RN Lead Top Icer 07/29/21 07/11/22 Griffin Joshi MD [address] [facility] [address] [place] [address] Assigned Heart and Vascular Provider 08/06/21 10/07/21 Roopa Almonte MD [address] [place] [address] 200 [place] [address] Assigned Endocrinology Provider 09/10/21 [place] [address] [facility] [place] [address] Assigned Musculoskeletal Provider 09/17/21 10/14/21 Lydia Bernstein, HUYC [address] [place] [address] Assigned PCP 10/01/21 10/21/21 Rosa Maria Love CHW Community Health Worker 10/06/21 [place] [address] [facility] [address] [place] [address] Assigned Musculoskeletal Provider 10/15/21 04/26/23 Paula Reza MD [address] [facility] 200 [place] [address] Assigned PCP 10/22/21 12/23/21 Keerthi Miner APRN INTERNATIONAL CONTROLLER [address] [place] [address] Assigned Heart and Vascular Provider 10/08/21 02/10/22 Shahida Sutton APRN INTERNATIONAL CONTROLLER Assigned PCP 12/24/21 03/24/22 Porsha Michaels APRN INTERNATIONAL CONTROLLER [address] [place] [address] Assigned Heart and Vascular Provider 02/11/22 05/12/22 Paula Reza MD [address] [place] [address] Assigned PCP 03/25/22 04/07/22 Shahida Sutton APRN INTERNATIONAL CONTROLLER [address] [place] [address] Assigned PCP 04/08/22 06/30/22 Daylin Ludwig, EP [facility] [address] [place] [address] Cardiac Rehabilitation Therapist 05/16/23 Laurel Velasquez MD [address] [place] [address] Assigned Heart and Vascular Provider 05/13/22 06/30/22 Daylin Ludwig, MIKI [facility] [address] [place] [address] Cardiac Rehabilitation Therapist 06/08/22 06/09/23 Paula Reza MD [address] [place] [address] Assigned PCP 07/01/22 07/07/22 Porsha Michaels APRN INTERNATIONAL CONTROLLER [address] [place] [address] Assigned Heart and Vascular Provider 07/01/22 07/07/22 Laurel Velasquez MD [address] [place] [address] Assigned Heart and Vascular Provider 07/08/22 08/04/22 Shahida Sutton APRN INTERNATIONAL CONTROLLER Assigned PCP 07/08/22 09/08/22 Marilin Montaño, INTERNATIONAL CONTROLLER [address] [facility] [place] [address] Assigned Heart and Vascular Provider 08/05/22 Esha Dewitt MD 420 [facility] 36 [place] [address] MD Gastroenterology 09/06/22 Heather Mosquera MD [address] [place] [address] Internal Medicine 09/06/22 Paula Reza MD [address] [facility] 200 [place], [place] [address] Assigned PCP 09/09/22 01/05/23 Esha Dewitt MD 420 [facility] 36 [place] [address] Assigned Gastroenterology Provider 09/23/22 Valdo Escamilla PA-C [address] [place] [address] Assigned Neuroscience Provider 09/30/22 Nohelia Abarca PA-C [address] [place] [address] Physician Sports Management Internship Gastroenterology 10/03/22 Heather Mosquera MD [address] [place] [address] Assigned PCP 01/06/23 Fawad York MD 909 [place] [address] Assigned Musculoskeletal Provider 04/27/23 06/25/23 documented as of this encounter
--- OUTSIDE RECORDS SUMMARY | 2023-09-21 08:40 | XMS_ITS ---
Author Organization [facility] Address [address] [place] [address] Care Team Providers Care Rubber Boots And Shoes Repairer Name Role Phone Roopa Almonte MD Unavailable [phone] Maryse BurtonC Unavailable Roopa Almonte MD Unavailable [phone] Griffin Joshi MD Unavailable Paula Reza MD Primary Care Provider Roopa Almonte MD Unavailable Daylin Ludwig Unavailable Marilin Montaño CNP Unavailable [phone] Esha Dewitt MD Unavailable [phone] Heather Mosquera MD Unavailable [phone] Esha Dewitt MD Unavailable [phone] Valdo Escamilla-C Unavailable [phone] Nohelia Abarca PA-C Unavailable [phone] Heather Mosquera MD Unavailable [phone] Diabetes Self-Management Education Status:Enrolled (Active) Start date:01/19/2022 Enrollment date:02/23/2022 Current support & services provided:Type 2 Diabetes Management, Individual Education Continued Care and Services Coordination
--- OUTSIDE RECORDS SUMMARY | 2023-09-21 08:40 | XMS_ITS | Encounter Summary ---
Author Organization [facility] Address [address] [place] [address] Care Team Providers Care Gallery Director Name Role Phone Dixon Carson MD Primary Care Provider Mingo Aldana MD Primary Car e Provider Shahida Sutton VP [employer] DUMPLING MACHINE OPERATOR Primary Care Provi ford Unavailable Herman, Shahida Cummings APRN DUMPLING MACHINE OPERATOR Unavailable Un available Herman, Shahida Cummings APRN DUMPLING MACHINE OPERATOR Unavailable Un available Carolynn Ramon RN Unavailable [phone] Augustine Callaway MD Unavailable Brady Lion MD Unavailable Un available Nima FranceC Unavailable [phone] Camille Chandler PA-C Unavailable [phone] Anabela Barakat APRN DUMPLING MACHINE OPERATOR Unavailable Nima FranceC Unavailable [phone] Basilio Morillo DO Unavailable [phone] Fawad York MD Unavailable [phone] Roopa Almonte MD Unavailable [phone] Augustine Callaway MD Unavailable Maryse Burton PA-C Unavailable Marquita Starkey MD Unavailable Roopa Almonte MD Unavailable [phone] Griffin Joshi MD Unavailable Rina Magallon RN Unavailable Paula Reza MD Primary Care Provider [phone] Griffin Joshi MD Unavailable Roopa Almonte MD Unavailable [facility] medical center[facility]ilio win DO Unavailable Lydia Bernstein PA-C Unavailable Rosa Maria Love Unavailable [phone] Augustine Callaway MD Unavailable Paula Reza MD Unavailable Keerthi Miner APRN DUMPLING MACHINE OPERATOR Unavailable Herman, Shahida Cummings APRN DUMPLING MACHINE OPERATOR Unavailable Un available Porsha Michaels APRN DUMPLING MACHINE OPERATOR Unavailable [phone] Paula Reza MD Unavailable Herman, Shahida Cummings APRN DUMPLING MACHINE OPERATOR Unavailable Un available Daylin Ludwig Unavailable [phone] Laurel Velasquez MD Unavailable Daylin Ludwig Unavailable [phone] Paula Reza MD Unavailable Porsha Michaels APRN DUMPLING MACHINE OPERATOR Unavailable [phone] Laurel Velasquez MD Unavailable Herman, Shahida Cummings APRN DUMPLING MACHINE OPERATOR Unavailable Un available Marilin Montaño DUMPLING MACHINE OPERATOR Unavailable [phone] Esha Dewitt MD Unavailable [phone] Heather Mosquera MD Unavailable Paula Reza MD Unavailable Esha Dewitt MD Unavailable [phone] Andi Valdo Desouza PA-C Unavailable [phone] Nohelia AbarcaC Unavailable [phone] Heather Mosquera MD Unavailable Fawad York MD Unavailable [phone] Reason for Visit * Reason Onset Date Comments MyChart Communication 12/31/2006 counseling ? Encounter Details Date Type Department Care Team (Late st Contact Info) Description 12/28/2006 [facility] [address] [address] Mingo Aldana MD [facility] [address] [place], [place] [id number] MyChart Communication (counseling ?) Social History Tobacco [...] PM CDT Can we refer patient to [place] psychologist at the [facility] in [place]. [phone] 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 Rule Out COVID-19 01/05/2021 01/05/2021 01/06/2021 12:57 PM CDT ESBL 01/05/2021 01/05/2021 Rule Out COVID-19 06/30/2021 06/30/2021 07/01/2021 9:34 AM CDT Rule Out COVID-19 07/25/2021 07/25/2021 07/25/2021 8:02 PM CDT documented as of this encounter Care Teams Gallery Director Relationship Specialty Start Date End Date Dixon Carson MD PCP - General 08/10/03 07/21/09 Mingo Aldana MD PCP - General Family Practice 07/22/09 07/12/14 Shahida Sutton APRN DUMPLING MACHINE OPERATOR PCP - General Nurse Practitioner 08/17/14 08/04/21 Shahida Sutton APRN DUMPLING MACHINE OPERATOR PCP - Assigned PCP 07/12/14 05/07/18 Paula Reza MD [address] [facility] [address] [place] [address] PCP - General Internal Medicine 08/05/21 Shahida Sutton APRN DUMPLING MACHINE OPERATOR Assigned PCP 07/12/14 09/30/21 Carolynn Ramon, KASIE Personal Advocate & Liaison (PAL) 12/17/18 08/07/21 [place] [address] [place] [address] Assigned Musculoskeletal Provider 12/26/19 08/21/20 Brady Lion MD Assigned Heart and Vascular Provider 12/26/19 08/14/20 Nima France PA-C [address] [place] [address] Assigned Surgical Provider 05/19/20 08/21/20 Camille Chandler PA-C [address] [place] [address] Assigned Neuroscience Provider 05/19/20 09/14/20 Anabela Barakat APRN DUMPLING MACHINE OPERATOR [address] [place] [address] Assigned Heart and Vascular Provider 08/15/20 08/05/21 Nima France PA-C [address] [place], [place] [address] Assigned Musculoskeletal Provider 08/22/20 11/13/20 [place] [address] [facility] [place] [address] Assigned Musculoskeletal Provider 11/14/20 12/04/20 Fawad York MD [address] [place], [place] [address] Assigned Musculoskeletal Provider 12/05/20 02/05/21 Roopa Almonte MD [address] [facility] [address] [place] [address] Endocrinology, Diabetes, and Metabolism 01/19/21 [place] [address] [facility] [address] [place] [address] Assigned Musculoskeletal Provider 02/06/21 09/16/21 Maryse Burton PA-C [address] [place] [address] Physician Assistant Infant Toddler Teacher Dermatology 04/14/21 Marquita Starkey MD [address] [facility] [address] [place] [address] Internal Medicine 05/06/21 05/06/21 Roopa Almonte MD [address] [facility] [address] [place] [address] Hospitalist Endocrinology, Diabetes, and Metabolism 05/30/21 Griffin Joshi MD [address] [place] [address] Cardiovascular Disease 07/25/21 Rina Magallon, RN Lead Ostomy Care Nurse 07/29/21 07/11/22 Griffin Joshi MD [address] [place] [address] Assigned Heart and Vascular Provider 08/06/21 10/07/21 Roopa Almonte MD [address] [address] [place] [address] Assigned Endocrinology Provider 09/10/21 [place] [address] [facility] [place] [address] Assigned Musculoskeletal Provider 09/17/21 10/14/21 Lydia Bernstein PA-C [address] [place] [address] Assigned PCP 10/01/21 10/21/21 Rosa Maria Love Cristina Community Health Worker 10/06/21 [place] [address] [facility] [address] [place] [address] Assigned Musculoskeletal Provider 10/15/21 04/26/23 Paula Reza MD [address] [facility] [address] [place] [address] Assigned PCP 10/22/21 12/23/21 Keerthi Miner APRN DUMPLING MACHINE OPERATOR [address] [place] [address] Assigned Heart and Vascular Provider 10/08/21 02/10/22 Shahida Sutton APRN DUMPLING MACHINE OPERATOR Assigned PCP 12/24/21 03/24/22 Porsha Michaels APRN DUMPLING MACHINE OPERATOR [address] [place] [address] Assigned Heart and Vascular Provider 02/11/22 05/12/22 Paula Reza MD [address] [place] [address] Assigned PCP 03/25/22 04/07/22 Shahida Sutton APRN DUMPLING MACHINE OPERATOR [address] [place] [address] Assigned PCP 04/08/22 06/30/22 Dalyin Ludwig, EP [facility] [address] [place] [address] Cardiac Rehabilitation Therapist 05/16/23 Laurel Velasquez MD [address] [place] [place] [address] Assigned Heart and Vascular Provider 05/13/22 06/30/22 Daylin Ludwig, MI[facility] [address] [place] [address] Cardiac Rehabilitation Therapist 06/08/22 06/09/23 Paula Reza MD [address] [place] [address] Assigned PCP 07/01/22 07/07/22 Porsha Michaels APRN DUMPLING MACHINE OPERATOR [address] [place] [address] Assigned Heart and Vascular Provider 07/01/22 07/07/22 Laurel Velasquez MD [address] [place], [place] [address] Assigned Heart and Vascular Provider 07/08/22 08/04/22 Shahida Sutton, VP [employer] DUMPLING MACHINE OPERATOR Assigned PCP 07/08/22 09/08/22 Marilin Montaño, DUMPLING MACHINE OPERATOR [address] [place] [address] Assigned Heart and Vascular Provider 08/05/22 Esha Dewitt MD [address] [address] Gastroenterology 09/06/22 Heather Mosquera MD [address] [place] [address] Internal Medicine 09/06/22 Paula Reza MD [address] [facility] [address] [place] [address] Assigned PCP 09/09/22 01/05/23 Esha Dewitt MD [address] [address] Assigned Gastroenterology Provider 09/23/22 Valdo Escamilla PA-C [address] [place] [address] Assigned Neuroscience Provider 09/30/22 Nohelia Abarca PA-C [address] [place] [address] Physician Assistant Infant Toddler Teacher Gastroenterology 10/03/22 Heather Mosquera MD [address] [address] Assigned PCP 01/06/23 Fawad York MD [address] [place], [place] [address] Assigned Musculoskeletal Provider 04/27/23 06/25/23 documented as of this encounter
--- OUTSIDE RECORDS SUMMARY | 2023-09-21 08:40 | XMS_ITS | Clinical Summary ---
Author Organization [facility] Address [address], [place] [address] Care Team Providers Care Home Furnishings Sales Representative Name Role Phone Ezra Roper MD Primary Care Provider [phone] Source Comments You are receiving this document as you are listed as the primary care provider,follow-up provider, or the patient has been referred to you for consultation.This is in compliance with the Medicare and[facility] Hospitalcaid EHR Incentive Program,which states Providers who transition their patient to another setting of careor provider of care or refers their patient to another provider of care shouldprovide summary care record for each transition of care or referral. Plynked Allergies Active Allergy Reactions Criticality Noted Date [...] Comments Blood Pressure 170/82 04/17/2019 3:06 PM LEARNING COACH Pulse 84 04/17/2019 3:06 PM LEARNING COACH Temperature 36.9 ??C (98.5 ??F) 04/17/2019 12:[address] Respiratory Rate 18 04/17/2019 3:06 PM LEARNING COACH Oxygen Saturation 96% 04/17/2019 3:06 PM LEARNING COACH Inhaled Oxygen Concentration - - Weight - [...] age to complete this topic Care Teams Home Furnishings Sales Representative Relationship Specialty [place] [address] [address] PCP - General 06/04/10
--- OUTSIDE RECORDS SUMMARY | 2023-09-21 08:40 | XMS_ITS | Encounter Summary ---
Author Organization [facility] Address [address] [place] [address] Care Team Providers Care Digester Operator Name Role Phone Dixon Carson MD Primary Care Provider Mingo Aldana MD Primary Car e Provider Shahida Sutton SANITARIAN CORE MACHINE OPERATOR Primary Care Provi ford Unavailable Herman, Shahida Cummings APRN CORE MACHINE OPERATOR Unavailable Un available Herman, Shahida Cummings APRN CORE MACHINE OPERATOR Unavailable Un available Carolynn Ramon RN Unavailable [phone] Augustine Callaway MD Unavailable Brady Lion MD Unavailable Un available Nima FranceC Unavailable [phone] Camille Chandler PA-C Unavailable [phone] Anabela Barakat APRN CORE MACHINE OPERATOR Unavailable Nima FranceC Unavailable [phone] Basilio Morillo DO Unavailable [phone] Fawad York MD Unavailable [phone] Roopa Almonte MD Unavailable [phone] Augustine Callaway MD Unavailable Maryse Burton [...] Paula Reza MD Unavailable Keerthi Miner APRN CORE MACHINE OPERATOR Unavailable Herman, Shahida Cummings APRN CORE MACHINE OPERATOR Unavailable Un available Porsha Michaels APRN CORE MACHINE OPERATOR Unavailable [phone] Paula Reza MD Unavailable Herman, Shahida Cummings APRN CORE MACHINE OPERATOR Unavailable Un available Daylin Ludwig Unavailable [phone] Laurel Velasquez MD Unavailable Daylin Ludwig Unavailable [phone] Paula Reza MD Unavailable Porsha Michaels APRN CORE MACHINE OPERATOR Unavailable [phone] Laurel Velasquez MD Unavailable Herman, Shahida Cummings APRN CORE MACHINE OPERATOR Unavailable Un available Marilin Montaño CORE MACHINE OPERATOR Unavailable Esha Dewitt MD Unavailable [phone] Heather Mosquera MD Unavailable Paula Reza MD Unavailable Esha Dewitt MD Unavailable [phone] Valdo Escamilla PA-C Unavailable Nohelia AbarcaC Unavailable [phone] Heather Mosquera MD Unavailable Fawad York MD Unavailable [phone] Encounter Details Date Type Department Care Team (Late st Contact Info) Description 08/20/2006 Jake Lancasterporfirio [address] [address] Dixon Carson MD [address] [address] Social History Tobacco Use Types [...] Out COVID-19 02/15/2020 02/15/2020 02/16/2020 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 Rule Out COVID-19 01/05/2021 01/05/2021 01/06/2021 12:57 PM CDT ESBL 01/05/2021 01/05/2021 Rule Out COVID-19 06/30/2021 06/30/2021 07/01/2021 9:34 AM CDT Rule Out COVID-19 07/25/2021 07/25/2021 07/25/2021 8:02 PM CDT documented as of this encounter Care Teams Digester Operator Relationship Specialty Start Date End Date Dixon Carson MD PCP - General 08/10/03 07/21/09 Mingo Aldana MD PCP - General Family Practice 07/22/09 07/12/14 Shahida Sutton APRN CORE MACHINE OPERATOR PCP - General Nurse Practitioner 08/17/14 08/04/21 Shahida Sutton APRN CORE MACHINE OPERATOR PCP - Assigned PCP 07/12/14 05/07/18 Paula Reza MD [address] [facility] 200 [place] [address] PCP - General Internal Medicine 08/05/21 Shahida Sutton APRN CORE MACHINE OPERATOR Assigned PCP 07/12/14 09/30/21 Carolynn Ramon, KASIE Personal Advocate & Liaison (PAL) 12/17/18 08/07/21 [place] [address] [place] [address] Assigned Musculoskeletal Provider 12/26/19 08/21/20 Brady Lion MD Assigned Heart and Vascular Provider 12/26/19 08/14/20 Nima France PA-C [address] [place] [address] Assigned Surgical Provider 05/19/20 08/21/20 Camille Chandler PA-C [address] [facility] [address] [place] [address] Assigned Neuroscience Provider 05/19/20 09/14/20 Anabela Barakat APRN CORE MACHINE OPERATOR [address] [place] [address] Assigned Heart and Vascular Provider 08/15/20 08/05/21 Nima France PA-C [address] [facility] [address] [place] [address] Assigned Musculoskeletal Provider 08/22/20 11/13/20 [place] [address] [place] [address] Assigned Musculoskeletal Provider 11/14/20 12/04/20 Fawad York MD [address] [place], [place] [address] Assigned Musculoskeletal Provider 12/05/20 02/05/21 Roopa Almonte MD [address] [facility] [address] [place] [address] Endocrinology, Diabetes, and Metabolism 01/19/21 [place] [address] [address] [facility] [address] [place] [address] Assigned Musculoskeletal Provider 02/06/21 09/16/21 Maryse Burton PA-C [address] [facility] [address] Physician Underwriting Specialist Dermatology 04/14/21 Marquita Starkey MD [address] [facility] [address] [place] [address] Internal Medicine 05/06/21 05/06/21 Roopa Almonte MD [address] [facility] [address] [place] [address] Hospitalist Endocrinology, Diabetes, and Metabolism 05/30/21 Griffin Joshi MD [address] [place] [address] Cardiovascular Disease 07/25/21 Rina Magallon RN Lead Hand Picker 07/29/21 07/11/22 Griffin Joshi MD [address] [place] [address] Assigned Heart and Vascular Provider 08/06/21 10/07/21 Roopa Almonte MD [address] [place], [place] [address] Assigned Endocrinology Provider 09/10/21 [place] [address] [facility] [place] [address] Assigned Musculoskeletal Provider 09/17/21 10/14/21 Lydia Bernstein PA-C [address] [place] [address] Assigned PCP 10/01/21 10/21/21 Rosa Maria Love CHW Community Health Worker 10/06/21 [place] [address] [place] [address] Assigned Musculoskeletal Provider 10/15/21 04/26/23 Paula Reza MD [address] [place] [address] Assigned PCP 10/22/21 12/23/21 Keerthi Miner APRN CORE MACHINE OPERATOR [address] [place] [address] Assigned Heart and Vascular Provider 10/08/21 02/10/22 Shahida Sutton APRN CORE MACHINE OPERATOR Assigned PCP 12/24/21 03/24/22 Porsha Michaels APRN CORE MACHINE OPERATOR [address] [place] [address] Assigned Heart and Vascular Provider 02/11/22 05/12/22 Paula Reza MD [address] [place] [address] Assigned PCP 03/25/22 04/07/22 Shahida Sutton APRN CORE MACHINE OPERATOR [address] [place] [address] Assigned PCP 04/08/22 06/30/22 Daylin Ludwig EP [facility] [address] [address] Cardiac Rehabilitation Therapist 05/16/23 Laurel Velasquez MD [address] [address] Assigned Heart and Vascular Provider 05/13/22 06/30/22 Daylin Ludwig EP [facility] [address] [place] [address] Cardiac Rehabilitation Therapist 06/08/22 06/09/23 Paula Reza MD [address] [facility] [address] [place], [place] [address] Assigned PCP 07/01/22 07/07/22 Porsha Michaels APRN CORE MACHINE OPERATOR [address] [place] [address] Assigned Heart and Vascular Provider 07/01/22 07/07/22 Laurel Velasquez MD [address] [place] [address] Assigned Heart and Vascular Provider 07/08/22 08/04/22 Shahida Sutton APRN CORE MACHINE OPERATOR Assigned PCP 07/08/22 09/08/22 Marilin Montaño, CORE MACHINE OPERATOR [address] [address] Assigned Heart and Vascular Provider 08/05/22 Esha Dewitt MD [address] [facility] 36 [place], [place] [address] Gastroenterology 09/06/22 Heather Mosquera MD [address] [place], [place] [address] Internal Medicine 09/06/22 Paula Reza MD [address] [facility] [address] [place], [place] [address] Assigned PCP 09/09/22 01/05/23 Esha Dewitt MD [address] [facility] 36 [place], [place] [address] Assigned Gastroenterology Provider 09/23/22 Valdo Escamilla PA-C [address] [facility] [address] [place], [place] [address] Assigned Neuroscience Provider 09/30/22 Nohelia Abarca PA-C [address] [place], [place] [address] Physician Underwriting Specialist Gastroenterology 10/03/22 Heather Mosquera MD [address] [facility] [address] [place], [place] [address] Assigned PCP 01/06/23 Fawad York MD [address] [place], [place] [address] Assigned Musculoskeletal Provider 04/27/23 06/25/23 documented as of this encounter
--- OUTSIDE RECORDS SUMMARY | 2023-09-21 08:40 | XMS_ITS | Encounter Summary ---
Author Organization [facility] Address [address] [place] [address] Care Team Providers Care Licensed Physical Therapy Assistant Name Role Phone Dixon Carson MD Primary Care Provider Mingo Aldana MD Primary Car e Provider Shahida Sutton HOSTLER HELPER NOISE ABATEMENT ENGINEER Primary Care Provi ford Unavailable Herman, Shahida Cummings APRN NOISE ABATEMENT ENGINEER Unavailable Un available Herman, Shahida Cummings APRN NOISE ABATEMENT ENGINEER Unavailable Un available Carolynn Ramon RN Unavailable [phone] Augustine Callaway MD Unavailable Brady Lion MD Unavailable Un available Nima FranceC Unavailable [phone] Camille Chandler PA-C Unavailable [phone] Anabela Barakat APRN NOISE ABATEMENT ENGINEER Unavailable Nima FranceC Unavailable [phone] Basilio Morillo DO Unavailable [phone] Fawad York MD Unavailable [phone] Roopa Almonte MD Unavailable [phone] Augustine Callaway MD Unavailable Maryse Burton [...] Paula Reza MD Unavailable Keerthi Miner APRN NOISE ABATEMENT ENGINEER Unavailable Herman, Shahida Cummings APRN NOISE ABATEMENT ENGINEER Unavailable Un available Porsha Michaels APRN NOISE ABATEMENT ENGINEER Unavailable [phone] Paula Reza MD Unavailable Herman, Shahida Cummings APRN NOISE ABATEMENT ENGINEER Unavailable Un available Daylin Ludwig Unavailable [phone] Laurel Velasquez MD Unavailable Daylin Ludwig Unavailable [phone] Paula Reza MD Unavailable Porsha Michaels APRN NOISE ABATEMENT ENGINEER Unavailable [phone] Laurel Velasquez MD Unavailable Herman, Shahida Cummings APRN NOISE ABATEMENT ENGINEER Unavailable Un available Marilin Montaño NOISE ABATEMENT ENGINEER Unavailable Esha Dewitt MD Unavailable [phone] Heather Mosquera MD Unavailable Paula Reza MD Unavailable Esha Dewitt MD Unavailable [phone] Valdo Escamilla PA-C Unavailable Nohelia Abarca PA-C Unavailable [phone] Heather Mosquera MD Unavailable Fawad York MD Unavailable [phone] Encounter Details Date Type Department Care Team (Late st Contact Info) Description 01/09/2007 MyC Medical Advice [address] [address] Mingo Aldana MD [facility] [address] [place] [address] OTHER MALAISE AND FATIGUE (Primary [...] insurance company for increased quantity. Porsha Marley CONFERENCE CENTER COORDINATOR L DEPLOYMENT SPECIALIST documented in this encounter Plan of Treatment Not on file documented as of this encounter Visit Diagnoses Diagnosis Other malaise and fatigue- Primary documented in this encounter Additional Health Concerns Infection Onset Date Last Indicated Resolved Time Rule Out COVID-19 02/15/2020 02/15/2020 02/16/2020 2:32 PM EMAIL DEPLOYMENT SPECIALIST Rule Out COVID-19 01/05/2021 01/05/2021 01/06/2021 12:57 PM CDT ESBL 01/05/2021 01/05/2021 Rule Out COVID-19 06/30/2021 06/30/2021 07/01/2021 9:34 AM CDT Rule Out COVID-19 07/25/2021 07/25/2021 07/25/2021 8:02 PM CDT documented as of this encounter Care Teams Licensed Physical Therapy Assistant Relationship Specialty Start Date End Date Dixon Carson MD PCP - General 08/10/03 07/21/09 Mingo Aldana MD PCP - General Family Practice 07/22/09 07/12/14 Shahida Sutton APRN NOISE ABATEMENT ENGINEER PCP - General Nurse Practitioner 08/17/14 08/04/21 Shahida Sutton APRN NOISE ABATEMENT ENGINEER PCP - Assigned PCP 07/12/14 05/07/18 Paula Reza MD [address] [facility] [address] [place] [address] PCP - General Internal Medicine 08/05/21 Shahida Sutton APRN NOISE ABATEMENT ENGINEER Assigned PCP 07/12/14 09/30/21 Carolynn Ramon, KASIE Personal Advocate & Liaison (PAL) 12/17/18 08/07/21 [place] [address] [place] [address] Assigned Musculoskeletal Provider 12/26/19 08/21/20 Brady Lion MD Assigned Heart and Vascular Provider 12/26/19 08/14/20 Nima France PA-C [address] [place] [address] Assigned Surgical Provider 05/19/20 08/21/20 Camille Chandler PA-C [address] [facility] [address] [place], [place] [address] Assigned Neuroscience Provider 05/19/20 09/14/20 Anabela Baarkat APRN NOISE ABATEMENT ENGINEER [address] [place] [address] Assigned Heart and Vascular Provider 08/15/20 08/05/21 Nima France PA-C [address] [facility] [address] [place] [address] Assigned Musculoskeletal Provider 08/22/20 11/13/20 [place] [address] [facility] [place] [address] Assigned Musculoskeletal Provider 11/14/20 12/04/20 Fawad York MD [address] [place], [place] [address] Assigned Musculoskeletal Provider 12/05/20 02/05/21 Roopa Almonte MD [address] [facility] [address] [place], [place] [address] Endocrinology, Diabetes, and Metabolism 01/19/21 [place] [address] [facility] [address] [place] [address] Assigned Musculoskeletal Provider 02/06/21 09/16/21 Maryse Burton PA-C [address] [place] [address] Physician Reinforced Concrete Inspector Dermatology 04/14/21 Marquita Starkey MD [address] [facility] [address] [place], [place] [address] Internal Medicine 05/06/21 05/06/21 Roopa Almonte MD [address] [address] Hospitalist Endocrinology, Diabetes, and Metabolism 05/30/21 Griffin Joshi MD [id number] [place] [address] Cardiovascular Disease 07/25/21 Rina Magallon, RN Lead Manager [employer] 07/29/21 07/11/22 Griffin Joshi MD [address] [id number] [place] [address] Assigned Heart and Vascular Provider 08/06/21 10/07/21 Roopa Almonte MD [address] [address] [place], [place] [address] Assigned Endocrinology Provider 09/10/21 [place] [address] [facility] [address] [place] [address] Assigned Musculoskeletal Provider 09/17/21 10/14/21 Lydia Bernstein PA-C [address] [place] [address] Assigned PCP 10/01/21 10/21/21 Rosa Maria Love Cristina Community Health Worker 10/06/21 [place] [address] [place] [address] Assigned Musculoskeletal Provider 10/15/21 04/26/23 Paula Reza MD [address] [place] [address] Assigned PCP 10/22/21 12/23/21 Keerthi Miner APRN NOISE ABATEMENT ENGINEER [address] [place] [address] Assigned Heart and Vascular Provider 10/08/21 02/10/22 Shahida Sutton APRN NOISE ABATEMENT ENGINEER Assigned PCP 12/24/21 03/24/22 Porsha Michaels APRN NOISE ABATEMENT ENGINEER [address] [address] Assigned Heart and Vascular Provider 02/11/22 05/12/22 Paula Reza MD [address] [place] [address] Assigned PCP 1/21/23 2/3/23 Shahida Sutton APRN NOISE ABATEMENT ENGINEER [address] [place] [address] Assigned PCP 04/08/22 06/30/22 Daylin Ludwig, [facility] [address] [address] Cardiac Rehabilitation Therapist 05/16/23 Laurel Velasquez MD [address] [id number] Assigned Heart and Vascular Provider 05/13/22 06/30/22 Daylin Ludwig, [facility] [address] [address] Cardiac Rehabilitation Therapist 06/08/22 06/09/23 Paula Reza MD [address] [address] Assigned PCP 07/01/22 07/07/22 Porsha Michaels APRN NOISE ABATEMENT ENGINEER [address] [address] Assigned Heart and Vascular Provider 07/01/22 07/07/22 Laurel Velasquez MD [address] [address] Assigned Heart and Vascular Provider 07/08/22 08/04/22 Shahida Sutton APRN NOISE ABATEMENT ENGINEER Assigned PCP 07/08/22 09/08/22 Marilin Montaño, NOISE ABATEMENT ENGINEER [address] [place] [address] Assigned Heart and Vascular Provider 08/05/22 Esha Dewitt MD [address] [facility] [address] [place] [address] Gastroenterology 09/06/22 Heather Mosquera MD [address] [place], [place] [address] Internal Medicine 09/06/22 Paula Reza MD [address] [facility] [address] [place], [place] [address] Assigned PCP 09/09/22 01/05/23 Esha Dewitt MD [address] [facility] [address] [place], [place] [address] Assigned Gastroenterology Provider 09/23/22 Valdo Escamilla PA-C [address] [facility] [address] [place] [address] Assigned Neuroscience Provider 09/30/22 Nohelia Abarca PA-C [address] [place] [address] Physician Reinforced Concrete Inspector Gastroenterology 10/03/22 Heather Mosquera MD [address] [place] [address] Assigned PCP 01/06/23 Fawad York MD [address] [place] [address] Assigned Musculoskeletal Provider 04/27/23 06/25/23 documented as of this encounter
--- OUTSIDE RECORDS SUMMARY | 2023-09-21 08:40 | XMS_ITS | Clinical Summary ---
Author Organization [employer] Address [place], [place] [address] Care Team Providers Care Computer Hardware Engineer Name Role Phone Yash Roy MD Primary Care Provider [phone] Allergies Active Allergy Reactions Criticality Noted Date [...] be used to read blood sugars, follow roof foreman directions. 9 Each 3 01/31/2023 Active Dexcom G7 Gunner Mate for continuous blood glucose monitor (CGM)Indications:Ty pe 2 diabetes mellitus with complication, with long-term current use of insulin (HC) To be used to read blood sugars follow roof foreman directions. 1 Each 01/31/2023 Active hydrOXYzine HCL [...] 0.4 mg sublingual tabletIndications:A cute anterior wall UT (HC) Place 1 Tablet (0.4 mg) under [...] Diagnosed Date Coronary artery disease invo lving [place] coronary artery of [place] heart without angina pectoris 04/24/2023 COPD (chronic [...] Chest pain 03/27/2021 07/07/2021 Acute anterior wall UT 02/06/201907/[address] elevation myocardia l infarction (STEMI) 02/06/2019 07/07/2021 Overview: DESTINY x1 pLAD 03/11/21 Morbid obesity 12/20/2014 02/05/2023 Pain in joint, shoulder region 05/12/2012 02/05/2023 Elbow pain 08/06/2007 02/05/2023 Acute encephalopathy 022 Hematoma of rectus sheath Cardiac arrest 11/09/2022 Encounters Date Type Department Care Team Description 08/25/2023 Refill [facility] [address] [place] [address] Jasen Witt, Refill Request (Lantus Solostar U-100 Insulin) 08/15/2023 Refill [place] [address] [place] [address] Jasen Witt, Refill Request (Lantus Solostar U-100 Insulin) 08/15/2023 Travel 07/19/2023 10:30 AM CDT Office Visit [facility] [address] [place] [address] Rebel Hernandez MD 07/19/2023 Travel 07/18/2023 1:00 PM CDT Ancillary Procedure [facility] [address] [place] [address] 07/18/2023 Travel 07/09/2023 Patient Outreach [facility] Care Management - Advanced Care Team [address] [place] [address] Linh Gandhi, INSOLE CHANNELER Complex Care Management (Complex Care Engagement) 07/03/2023 Patient Outreach [facility] Care Management - Care Management Navigation/[facility] [address] [place] [address] Marilin Dillard Care Management Intake (Identification Date - payer referral) 06/25/2023 Telephone [facility] [address] [facility] [address] [place] [phone] Cardiothoracic, [place] Appointment Request from Last 3 Months Immunizations Name Administration Dates Next Due COVID-19 Vaccine Spikevax (M oderna 50mcg/0.5mL) 12YO+ [id number] Formula PF 02/21/2023 Influenza A (H1N1), Inactivated [...] Comments Blood Pressure 98/55 04/25/2023 4:15 PM CALENDER MACHINE OPERATOR HELPER Pulse 76 04/25/2023 4:15 PM CALENDER MACHINE OPERATOR HELPER Temperature 36.8 ??C (98.2 ??F) 04/25/2023 7:49 AM CS T Respiratory Rate 16 04/25/2023 7:49 AM CALENDER MACHINE OPERATOR HELPER Oxygen Saturation 94% 04/25/2023 4:08 PM CALENDER MACHINE OPERATOR HELPER Inhaled Oxygen Concentration - - Weight 109.4 kg (241 lb 3.2 oz) 04/25/2023 4:24 AM CALENDER MACHINE OPERATOR HELPER Height 180.3 cm (5' 11) 04/24/2023 12: 45 PM CALENDER MACHINE OPERATOR HELPER Body Mass Index 33.64 04/24/2023 12:45 PM CALENDER MACHINE OPERATOR HELPER Plan of Treatment Upcoming Encounters Date Type Department Care Team (Latest Contact Info) Description 10/03/2023 9:00 AM CDT Appointment [facility] [address] [place] [address] 10/03/2023 11:00 AM CDT Office Visit [facility] [address] [place] [address] Jw Thomas MD [address] [facility] [address] [place] [address] 11/22/2023 Cardiac Device Check [facility] [phone] Health Maintenance Due Date Last Done Comments [...] ANTI HIV 1/2 Routine 02/21/2023 8:59 AM CALENDER MACHINE OPERATOR HELPER Screening for HIV (human immunodeficiency virus) ANTI HCV Routine 02/21/2023 8:59 AM CALENDER MACHINE OPERATOR HELPER Need for hepatitis C screening test LIPID [...] CDT ECHOCARDIOGRAM CHRISTIANO DURBIN ? Accession#: ?? [id number] : ?1960 62 years Study Date: ?? 07/18/2023 1:09:54 PM Gender: M ?BP: ? 98/55 mmHg Height: 180.00 cm ?BSA: ?2.29 m? ? ? Weight: 110.00 kg ?Tech: ? MSR ? Referring MD: YASH ROY Site: ? [facility] Reading Location: Mobile OP Patient Location: [...] documentation: 2ml ml diluted Definity, lot #[id number], [facility]# [id number] was administered peripherally to enhance visualization of all left ventricular segments. . This study was interpreted by an [facility] accredited facility. CC: [facility] ([facility]) [facility]. ??Final ?? Procedure Note Bruce Massey MD - 07/18/2023 ECHOCARDIOGRAM CHRISTIANO DURBIN : 1960 62 years Study Date: 07/18/2023 1:09:54 PM Gender: M BP: 98/55 mmHg Height: 180.00 cm BSA: 2.29 m? ? ? Weight: 110.00 kg Tech: MSR Referring MD: YASH ROY Site: [facility] Reading Location: Mobile OP Patient [...] documentation: 2ml ml diluted Definity, lot #[id number], [facility]#[id number] was administered peripherally to enhance visualization of allleft ventricular segments. . This study was interpreted by an [facility] accredited facility. CC: [facility] ([facility]) [facility]. Final Yash Roy MD ECHO ORD * ANTI HCV (02/21/2023 8:59 AM CALENDER MACHINE OPERATOR HELPER) HEPATITIS C ANTIBODY Non-Reacti ve Non-React tomer 02/21/2023 1:07 PM CALENDER MACHINE OPERATOR HELPER [facility] Comment:Please note, per www .CDC.gov: If a patient is known to be at high risk of HCV infection, or is symptomatic, and the physician's suspicion of HCV infection is high, HCV RNA testing is often employed and is of diagnostic value, even after an initial negative anti-HCV test result. Blood BLOOD SPECIMEN / Unknown Venipuncture / Unknown 02/21/2023 8:59 AM CALENDER MACHINE OPERATOR HELPER 02/21/2023 8:59 AM CALENDER MACHINE OPERATOR HELPER Jasen Witt DO [facility] [address] [place] [address], [place] * ANTI HIV 1/2 [94122.0] (02/21/2023 8:59 AM CALENDER MACHINE OPERATOR HELPER) HIV-1/HIV-2 SCREEN Non-Reacti ve Non-Reacti ve 02/21/2023 1:01 PM CALENDER MACHINE OPERATOR HELPER [facility] Comment:HIV-1 p24 and HIV-1/ HIV-2 Ab Not Detected. Blood BLOOD SPECIMEN / Unknown Venipuncture / Unknown 02/21/2023 8:59 AM CALENDER MACHINE OPERATOR HELPER 02/21/2023 8:59 AM CALENDER MACHINE OPERATOR HELPER Jasen Witt DO [facility] [address] [place] [address], [place] * (ABNORMAL) LIPID PANEL W REFLEX MEASURED LDL (12/29/2022 9:41 AM CDT) CHOLESTEROL,TOTAL 135 100 - 199 mg/dL 01/02/2023 6:46 PM [facility] Comment: Cholesterol, Total Reference Ranges Desirable <200 mg/dL Borderline 200-239 mg/dL High >=240 mg/dL TRIGLYCERIDES 137 <150 mg/dL 01/02/2023 6:46 PM [facility] HDL CHOLESTEROL 37(L) >40 mg/dL 6:46 PM [facility] NON-HDL CHOLESTEROL 98 <145 mg/dl 01/02/2023 6:46 PM [facility] CHOL/HDL RATIO 3.65 <4.50 01/02/2023 6:46 PM [facility] LDL CHOLESTEROL 71 <=130 mg/dL 01/02/2023 6:46 PM [facility] VLDL CHOLESTEROL 27 <=30 mg/dL 01/02/2023 6:46 PM [facility] PROVIDER ORDERED STATUS NOT GIVEN 01/02/2023 6:46 PM [facility] Blood BLOOD SPECIMEN / Unknown IV Start / Unknown 12/29/2022 9:41 AM CDT 12/29/2022 9:45 AM CDT Umberto Johnson MD CHEMISTRY [facility] [address] [place] [address] from Last 3 Months or Most Recently Relevant to Health Maintenance Additional Health Concerns Infection Onset Date Last Indicated MDRO Clearance Comment:Infection Control Note: 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 Do not delete or resolve the infection flag. 07/07/2021 07/07/2021 Advance Directives Documents on File Type Date Recorded Patient Wood Form Builder Expl anation Healthcare Directive 07/08/2021 022 * [...] 11:10 AM 02/08/2019 1:03 PM Care Teams Computer Hardware Engineer Relationship Specialty Start Date End Date Yash Roy MD [address] [place] [address] PCP - General Internal Medicine 04/27/23
== END 2023-09-21 08:27 | disposition home or self-care (01) ==
LOC: WOUND 08:26
PROVIDERS: PCP Internal Medicine; Visit Provider Nurse Practitioner Family
DX: L89.323 Pressure ulcer of left buttock, stage 3 (principal); E11.622 Type 2 diabetes mellitus with other skin ulcer; Z79.84 Long term (current) use of oral hypoglycemic drugs
CPT/HCPCS: G0463

== ENCOUNTER 2023-09-24 15:45 | Outpatient (CLI) | payer BC, SELFPAY | END 2023-09-24 15:46 | disposition home or self-care (01) | LOC: WOUND 15:45 | PROVIDERS: PCP Internal Medicine; Visit Provider Nurse Practitioner Family | DX: L89.323 Pressure ulcer of left buttock, stage 3 (principal); E11.622 Type 2 diabetes mellitus with other skin ulcer; Z79.4 Long term (current) use of insulin; Z79.84 Long term (current) use of oral hypoglycemic drugs | CPT/HCPCS: G0463 ==

== ENCOUNTER 2023-09-27 15:37 | Outpatient (CLI) | payer BC, SELFPAY | END 2023-09-27 15:38 | disposition home or self-care (01) | LOC: WOUND 15:37 | PROVIDERS: PCP Internal Medicine; Visit Provider Nurse Practitioner Family | DX: L89.323 Pressure ulcer of left buttock, stage 3 (principal); E11.622 Type 2 diabetes mellitus with other skin ulcer; Z79.4 Long term (current) use of insulin | CPT/HCPCS: G0463 ==

== ENCOUNTER 2023-10-02 15:39 | Outpatient (CLI) | payer BC, SELFPAY ==
--- OUTSIDE RECORDS SUMMARY | 2023-10-02 15:42 | XMS_ITS | Clinical Summary ---
Author Organization [place] Address [address] [place] [address] Care Team Providers Care Bevel Polisher Name Role Phone Roopa Almonte MD Unavailable Maryse Burton PA-C Unavailable Roopa Almonte MD Unavailable Griffin Joshi MD Unavailable Paula Reza MD Primary Care Provider Roopa Almonte MD Unavailable Daylin Ludwig Unavailable Marilin Montaño BOX OFFICE CLERK Unavailable Esha Dewitt MD Unavailable [phone] Heather Mosquera MD Unavailable Esha Dewitt MD Unavailable [phone] Valdo EscamillaC Unavailable Nohelia Abarca PA-C Unavailable [phone] Heather Mosquera MD Unavailable [phone] Allergies Active Allergy Reactions Criticality Noted Date [...] MG sublingual tabletIndications: 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:06/10/2019 SR Esophageal reflux 10/06/2003 Resolved Problems Problem [...] Cerebrovascular Disease Mother Musculoskeletal Disorder Mother fibromy algia/Ktwbm-Jkzvlht-Uyqlh Myocardial Infarction Mother Rheumatoid Arthritis Mother Musculoskeletal [...] Comments Blood Pressure 123/70 02/14/2023 1:45 PM ASSEMBLY MEMBER Pulse 80 02/14/2023 1:45 PM ASSEMBLY MEMBER Temperature 36.8 ??C (98.3 ??F) 07/08/2022 7:41 AM CD T Respiratory Rate 20 02/14/2023 1:45 PM ASSEMBLY MEMBER Oxygen Saturation 94% 02/14/2023 1:45 PM ASSEMBLY MEMBER Inhaled Oxygen Concentration - - Weight 117.9 [...] Optimize Self-Care Behaviors 90%(03/23/19 23 3:12 PM ASSEMBLY MEMBER) Angelita Diaz RD Note: I will check [...] Diaz RD Medical Devices Implanted Type Area Securities Supervisor Device Identifier Shelf Expiration Date Model / Serial / Lot Medtronic I* [id number] [place] Xt Hf Quad Manager Staffing-D Mri [id number] Implanted:03/17 (Quantity not on file) ICD [employer] [id number] C OBALT XT HF QUAD [place] SUPPORT SPECIALIST-D MRI / [id number] / Medtronic I* [id number] Attain Performa Mri Surescan [id number] Implanted:03/17 (Quantity not on file) Leads [employer] 4298 CLAUDY IN PERFORMA MRI SURESCAN / [id number] / Medtronic I* 5076 Capsurefix Novus [id number] Implanted:03/17 (Quantity not on file) Leads [employer] 5076 CAPS UREFIX NOVUS / [id number] / Medtronic I* 6935 Sprint Quattro Secure S [id number] Implanted:03/17 (Quantity not on file) Leads [employer] 6935 SPRI NT QUATTRO SECURE S / [id number] / Procedures Procedure Name Priority Date/Time Associated Diagnosis Comments CBC WITH PLATELETS STAT 02/14/2023 10 :[address] CHEST/ABDOMEN/PELVIS W CONTRAST Routine 12/29/2022 10:23 AM CDT BASIC METABOLIC PANEL Routine 07/08/2022 7:24 AM CDT COMPREHENSIVE METABOLIC PANEL Routine 07/07/2022 10:33 AM CDT EYE EXAM - HIM SCAN 04/13/2022 1 2:00 AM ASSEMBLY MEMBER LIPID PROFILE Routine 02/15/2022 10:03 AM ASSEMBLY MEMBER Chronic systolic congestive heart failure (H) HTN, goal below 140/90 COLOGUARD(EXACT SCIENCES) Routine 01/24/2022 12:00 PM ASSEMBLY MEMBER Screen for colon cancer HEMOGLOBIN A1C Routine 01/10/2022 9:45 AM ASSEMBLY MEMBER Type 2 diabetes mellitus with diabetic nephropathy, [...] (ABNORMAL) CBC with platelets (02/14/2023 10:20 AM ASSEMBLY MEMBER) WBC Count 10.9 4.0 - 11.0 10e3/uL 02/14/2023 10:33 AM ASSEMBLY MEMBER [facility] RBC Count 4.72 4.40 - 5.90 10e6/uL 02/14/2023 10:33 AM ASSEMBLY MEMBER [facility] Hemoglobin 10.4(L) 13.3 - 17.7 g/dL 02/14/2023 10:33 AM ASSEMBLY MEMBER [facility] Hematocrit 34.3(L) 40.0 - 53.0 % 02/14/2023 10:33 AM ASSEMBLY MEMBER [facility] MCV 73(L) 78 - 100 fL 02/14/2023 10:33 AM ASSEMBLY MEMBER [facility] MCH 22.0(L) 26.5 - 33.0 pg 02/14/2023 10:33 AM ASSEMBLY MEMBER [facility] MCHC 30.3(L) 31.5 - 36.5 g/dL 02/14/2023 10:33 AM ASSEMBLY MEMBER [facility] RDW 16.5(H) 10.0 - 15.0 % 02/14/2023 10:33 AM ASSEMBLY MEMBER [facility] Platelet Count 400 150 - 450 10e3/uL 02/14/2023 10:33 AM ASSEMBLY MEMBER LABORATORY Blood BLOOD SPECIMEN / Unknown Intraosseous / Unknown 02/14/2023 10:20 AM ASSEMBLY MEMBER 02/14/2023 10:29 AM ASSEMBLY MEMBER [facility] FINISHER [employer] BOX OFFICE CLERK LAB - BLOOD ORDERABLES [facility] LAB[facility]AT[facility] [address] Lab (1st floor, no room number) [place] [address], [facility] [phone] * (ABNORMAL) Basic metabolic panel (07/08/2022 7:24 [...] Lovell MD LAB - BLOOD DENISA AREVALO [facility] Organization Address City/State/ZIP Co de Phone Number LABORATORY [facility] [address] Lab (1st floor, no room number) [place] [address], [facility] [phone] * (ABNORMAL) Comprehensive metabolic panel (07/07/2022 10:33 [...] MD LAB - BLOOD ORDERABL ES LABORATORY [facility] [address] [facility] Lab (1st floor, no room number) [place] [address], [place] [phone] * (ABNORMAL) EYE EXAM - HIM SCAN (04/13/2022 12:00 AM ASSEMBLY MEMBER) RETINOPATHY POSITIVE(A ) 04/13/2022 Provider Outside OTHER * (ABNORMAL) Lipid Profile (02/15/2022 10:03 AM ASSEMBLY MEMBER) Cholesterol 178 <200 mg/dL 02/15/2022 3:56 PM ASSEMBLY MEMBER [facility] Triglycerides 285(H) <150 mg/dL 02/15/2022 3:56 PM ASSEMBLY MEMBER [facility] Direct Measure HDL 34(L) >=40 mg/dL 02/15/2022 3:56 PM ASSEMBLY MEMBER [facility] LDL Cholesterol Calculated 87 <=100 mg/dL 02/15/2022 3:56 PM ASSEMBLY MEMBER [facility] Non HDL Cholesterol 144(H) <130 mg/dL 02/15/2022 3:56 PM ASSEMBLY MEMBER [facility] Blood STRUCTURE OF RIGHT UPPER LIMB / Unknown Venipuncture / Unknown 02/15/2022 10:03 AM ASSEMBLY MEMBER 02/15/2022 10:03 AM ASSEMBLY MEMBER Narrative [facility] - 02/15/2022 3:56 PM ASSEMBLY MEMBER Cholesterol Desirable: ??<200 mg/dL Triglycerides Normal: ??Less [...] equal to 220 mg/dL Keerthi Miner APRN BOX OFFICE CLERK LAB - BLOOD ORDERABLES [facility] [address] [facility], [address] [place] [address], [facility] [phone] * (ABNORMAL) COLOGUARD(Wan Shidao management) (01/24/2022 12:00 PM ASSEMBLY MEMBER) COLOGUARD-ABSTRAC T Positive( A) Negative 01/29/2022 7:20 AM ASSEMBLY MEMBER [employer] (CLIA #:[id number]) Comment: POSITIVE TEST RESULT. A positive Cologuard [...] Olmos et al, N Engl J Med 2014;370(14):3068-5971.) Cologuard may produce a false negative or false positive result (no colorectal cancer or precancerous polyp present at colonoscopy follow up). A negative Cologuard test result does not guarantee the absence of CRC or advanced adenoma (pre-cancer). The current Cologuard screening interval is every 3 years. ([place] Cancer Society and U.S. Multi-Society Task Force). Cologuard performance data in a 10,000 patient pivotal study using colonoscopy as the reference method can be accessed at the following location: www.ID.me.Telderi/results. Additional description of the Cologuard test process, warnings and precautions can be found at www.cologuard.com. Stool specimen (specimen) 01/24/2022 12:00 PM ASSEMBLY MEMBER 01/25/2022 1:01 PM ASSEMBLY MEMBER Paula Reza MD LABORATORY Performing Organization Address City/[facility]/ZIP Co de Phone Number [employer] [address] [phone] [employer] (CLIA #:[id number]) [address] [place] [address] * (ABNORMAL) Hemoglobin A1c (01/10/2022 9:45 AM ASSEMBLY MEMBER) Hemoglobin A1C 8.9(H) 0.0 - 5.6 % 01/10/2022 9:52 AM ASSEMBLY MEMBER [facility] Comment: Normal <5.7% Prediabetes 5.7-6.4% ?? Diabetes 6.5% or higher Note: Adopted from ADA consensus guidelines. Blood STRUCTURE OF RIGHT UPPER LIMB / Unknown Venipuncture / Unknown 01/10/2022 9:45 AM ASSEMBLY MEMBER 01/10/2022 9:45 AM ASSEMBLY MEMBER Narrative [facility] - 01/10/2022 9:52 AM ASSEMBLY MEMBER Reviewed, ok with previous. Roopa Almonte MD LAB - BLOOD ORDER KEVIN Performing Organization Address City/[facility]/ZIP Co de Phone Number RI LABORATORY [facility] Lab [address], [address] [place] [address], [place] [phone] * TSH with free T4 reflex (10/03/2021 8:11 AM CDT) TSH 2.97 0.30 - 4.20 uIU/mL 10/03/2021 8:58 AM CDT [facility] Blood STRUCTURE OF RIGHT UPPER LIMB / Unknown Venipuncture / Unknown 10/03/2021 8:11 AM CDT 10/03/2021 8:13 AM CDT Keerthi Miner APRN BOX OFFICE CLERK LAB - BLOOD ORDERABLES RH LABORATORY [facility] [address] Lab (1st floor, no room number) [place] [address], [facility] [phone] * Albumin Random Urine Quantitative with Creat [...] LAB - URINE ORDERA BLES OX LABORATORY [facility] Lab [address] Lab (no room number, 1st floor of clinic) [place] [address], [facility] [phone] * HIV Antigen Antibody Combo (06/04/2020 2:43 PM CDT) HIV Antigen Antibody Combo Nonreactive NR^Nonrea ctive 06/04/2020 8:30 PM CDT [facility] Comment:HIV-1 p24 Ag & HIV-1 /HIV-2 Ab Not Detected Blood 06/04/2020 2:43 PM CDT 06/04/2020 2:44 PM CDT Shahida Sutton APRN, CNP LAB - BLOOD ORDERABLES Performing Organization Address City/[facility]/ZIP Co de Phone Number [facility] [address] [place] [address] * Hepatitis C Screen Reflex to HCV RNA Quant and Genotype (06/04/2020 2:43 PM CDT) Hepatitis C Antibody Nonreactive NR^Nonre active 06/04/2020 8:38 PM CDT [facility] Comment: Assay performance characteristics have not been established for newborns, infants, and children Blood 06/04/2020 2:43 PM CDT 06/04/2020 2:44 PM CDT Shahida Sutton APRN BOX OFFICE CLERK LAB - BLOOD ORDERABLES Performing Organization Address [facility] Co de Phone Number [address] [address] * PHQ-9 DEPRESSION SCREENING ORDER (05/01/2018) PHQ9 SCORE 5 Narrative Pelon Crowe - 05/01/2018 [facility] PROGRESS NOTE Provider Outside OTHER * Fecal colorectal cancer screen (FIT) (10/05/2016 10:45 AM CDT) Occult Blood Scn FIT Negative NEG [facility] Stool specimen (specimen) 10/05/2016 10:45 AM CDT 10/11/2016 11:00 AM CDT Shahida Sutton APRN, CNP LAB - STOOL S ORDERABLES Performing Organization Address City/[facility]/ZIP Co de Phone Number [facility] [address] [place] [address] from Last 3 Months or Most Recently Relevant to Health Maintenance Additional Health Concerns Active Problems Noted Date Diagnosed Date HbA1C Not In Goal 02/23/2022 Diabetes Self-Management Edu cation Needed to Optimize Self-Care Behaviors 02/23/2022 Infection Onset Date Last Indicated ESBL 01/05/2021 01/05/2021 Advance Directives For more information, please contact: [phone] * Full Code (Latest Code Status on [...] walt jung/ legal decision maker Care Teams Bevel Polisher Relationship Specialty Start Date End Date Paula Reza MD [address] [place] [address] PCP - General Internal Medicine 08/05/21 Roopa Almonte MD [address] [facility] 200 [place] [address] Endocrinology, Diabetes, and Metabolism 01/19/21 Maryse Burton PA-C [address] [place] [address] Physician Site Lead Dermatology 04/14/21 Roopa Almonte MD [address] [facility] 200 [place] [address] Hospitalist Endocrinology, Diabetes, and Metabolism 05/30/21 Griffin Joshi MD [address] [facility] [address] [place], [place] [address] Cardiovascular Disease 07/25/21 Roopa Almonte MD [address] [facility] 200 [place], [place] [address] Assigned Endocrinology Provider 09/10/21 Daylin Ludwig EP [facility] [address] [place] [address] Cardiac Rehabilitation Therapist 05/16/23 Marilin Montaño, BOX OFFICE CLERK [address] [place] [address] Assigned Heart and Vascular Provider 08/05/22 Esha Dewitt MD 420 [facility] 36 [place] [address] Gastroenterology 09/06/22 Heather Mosquera MD [address] [facility] [address] [facility] 150 [place] [address] Internal Medicine 09/06/22 Esha Dewitt MD 420 [facility] 36 [place], [place] [address] Assigned Gastroenterology Provider 09/23/22 Valdo Escamilla PA-C [address] [facility] [facility] [address] [place], [place] [address] Assigned Neuroscience Provider 09/30/22 Nohelia Abarca PA-C [address]50 [place] [address] Physician Site Lead Gastroenterology 10/03/22 Heather Mosquera MD 6545 [facility] 150 [place], [place] [address] Assigned PCP 01/06/23
--- OUTSIDE RECORDS SUMMARY | 2023-10-02 15:43 | XMS_ITS | Encounter Summary ---
Author Organization [place] Address [address] [place] [address] Care Team Providers Care Vocational Training Teacher Name Role Phone Roopa Almonte MD Unavailable [phone] Maryse Burton-C Unavailable [phone] Roopa Almonte MD Unavailable [phone] Griffin Joshi MD Unavailable Paula Reza MD Primary Care Provider Roopa Almonte MD Unavailable [phone] Augustine Callaway MD Unavailable Daylin Ludwig Unavailable Daylin Ludwig Unavailable [phone] Marilin Montaño PHYSICIAN CREDENTIALING SPECIALIST Unavailable [phone] Esha Dewitt MD Unavailable [phone] Heather Mosquera MD Unavailable [phone] Esha Dewitt MD Unavailable [phone] Valdo Escamilla PA-C Unavailable [phone] Nohelia Abacra-C Unavailable [phone] Heather Mosquera MD Unavailable Fawad York MD Unavailable [phone] Encounter Details Date Type Department Care Team (Late st Contact Info) Description 01/29/2023 MyC Medical Advice [facility] Gastroenterology Clinic [address] 4th [place] [address] Rina Levin, KASIE Social History [...] to Optimize Self-Care Behaviors 90%(03/23/19 3:12 PM CHECK WRITER) Angelita Diaz RD Note: I will check [...] Self-Management Education Needed to Optimize Self-Care Behaviors Angeltia Diaz RD documented as of this encounter [...] documented as of this encounter Care Teams Vocational Training Teacher Relationship Specialty Start Date End Date Paula Reza MD [address] [facility] 200 [place] [address] PCP - General Internal Medicine 08/05/21 Roopa Almonte MD [address] [facility] 200 [place] [address] Endocrinology, Diabetes, and Metabolism 01/19/21 Maryse Burton, PAAna MariaC 5200 [place] [address] Physician Weaving Inspector Dermatology 04/14/21 Roopa Almonte MD [address] [address] Hospitalist Endocrinology, Diabetes, and Metabolism 05/30/21 Griffin Joshi MD 6405 [facility] [address] [place] [address] Cardiovascular Disease 07/25/21 Roopa Almonte MD [address] [place] [address] 200 [place], [place] [address] Assigned Endocrinology Provider 09/10/21 [place] [address] [facility] 300 [place] [address] Assigned Musculoskeletal Provider 10/15/21 04/26/23 Daylin Ludwig EP [facility] [address] [place] [address] Cardiac Rehabilitation Therapist 05/16/23 Daylin Ludwig EP [facility] [address] [address] Cardiac Rehabilitation Therapist 06/08/22 06/09/23 Marilin Montaño, PHYSICIAN CREDENTIALING SPECIALIST 6405 [place] [address] Assigned Heart and Vascular Provider 08/05/22 Esha Dewitt MD 420 [facility] 36 [place] [address] MD Gastroenterology 09/06/22 Heather Mosquera MD 6545 [facility] 150 [place] [address] Internal Medicine 09/06/22 Esha Dewitt MD [address] [address] Assigned Gastroenterology Provider 09/23/22 Valdo Escamilla PA-C 6363 [facility] 103 [place] [address] Assigned Neuroscience Provider 09/30/22 Nohelia Abarca PA-C [address] [place] [address] Physician Weaving Inspector Gastroenterology 10/03/22 Heather Mosquera MD [address] [facility] [address] [facility] 150 [place], [place] [address] Assigned PCP 01/06/23 Fawad York MD [address] [place], [place] [address] Assigned Musculoskeletal Provider 04/27/23 06/25/23 documented as of this encounter
--- OUTSIDE RECORDS SUMMARY | 2023-10-02 15:43 | XMS_ITS | Encounter Summary ---
Author Organization [place] Address [address] [place] [address] Care Team Providers Care Tube Maker Name Role Phone Roopa Almonte MD Unavailable [phone] Maryse Burton PA-C Unavailable Roopa Almonte MD Unavailable [phone] Griffin Joshi MD Unavailable Paula Reza MD Primary Care Provider [phone] Roopa Almonte MD Unavailable [phone] Augustine Callaway MD Unavailable Daylin Ludwig Unavailable Daylin Ludwig Unavailable [phone] Marilin Montaño MACHINE INKER Unavailable [phone] Esha Dewitt MD Unavailable [phone] Heather Mosquera MD Unavailable [phone] Paula Reza MD Unavailable Esha Dewitt MD Unavailable [phone] Valdo EscamillaC Unavailable [phone] Nohleia Abarca PA-C Unavailable [phone] Heather Mosquera MD Unavailable Fawad York MD Unavailable Encounter Details Date Type Department Care Team (Late st Contact Info) Description 10/12/2022 MyC Medical Advice [facility] Gastroenterology Clinic [place] [address] [facility] [address] 4th [place] [address] Esha Dewitt MD 420 [facility] 36 [place] [address] Social History Tobacco Use Types [...] Optimize Self-Care Behaviors 90%(03/23/19 23 3:12 PM TECHNOLOGIES DIVISION CHAIR) Angelita Diaz RD Note: I will check [...] documented as of this encounter Care Teams Tube Maker Relationship Specialty Start Date End Date Paula Reza MD [address] [facility] 200 [place] [address] PCP - General Internal Medicine 08/05/21 Roopa Almonte MD [address] [facility] 200 [place] [address] Endocrinology, Diabetes, and Metabolism 01/19/21 Maryse Burton, PAAna MariaC 5200 [place] [address] Physician Boiler House Inspector Dermatology 04/14/21 Roopa Almonte MD [address] [facility] 200 [place] [address] Hospitalist Endocrinology, Diabetes, and Metabolism 05/30/21 Griffin Joshi MD 6405 [facility] [address] [place] [address] Cardiovascular Disease 07/25/21 Roopa Almonte MD [address] [facility] 200 [place], [place] [address] Assigned Endocrinology Provider 09/10/21 [place] [address] [facility] 300 [place] [address] Assigned Musculoskeletal Provider 10/15/21 04/26/23 Daylin Ludwig EP [facility] [address] [place] [address] Cardiac Rehabilitation Therapist 05/16/23 Daylin Ludwig EP [facility] [address] [place] [address] Cardiac Rehabilitation Therapist 06/08/22 06/09/23 Marilin Montaño, MACHINE INKER [address] [place] [address] Assigned Heart and Vascular Provider 08/05/22 Esha Dewitt MD 420 [facility] 36 [place], [place] [address] Gastroenterology 09/06/22 Heather Mosquera MD [address] [place], [place] [address] Internal Medicine 09/06/22 Paula Reza MD [address] [facility] 200 [place], [place] [address] Assigned PCP 09/09/22 01/05/23 Esha Dewitt MD 420 [facility] 36 [place], [place] [address] Assigned Gastroenterology Provider 09/23/22 Valdo Escamilla PA-C [address] [place] [address] Assigned Neuroscience Provider 09/30/22 Nohelia Abarca PA-C 2450 [place] [address] Physician Boiler House Inspector Gastroenterology 10/03/22 Heather Mosquera MD 6545 [facility] 150 [place] [address] Assigned PCP 01/06/23 Fawad York MD 909 [place] [address] Assigned Musculoskeletal Provider 04/27/23 06/25/23 documented as of this encounter
--- OUTSIDE RECORDS SUMMARY | 2023-10-02 15:43 | XMS_ITS | Encounter Summary ---
Author Organization [place] Address [address] [place] [address] Care Team Providers Care Bar Examiner Name Role Phone Roopa Almonte MD Unavailable [phone] Maryse Burton PA-C Unavailable Roopa Almonte MD Unavailable [phone] Griffin Joshi MD Unavailable Paula Reza MD Primary Care Provider [phone] Roopa Almonte MD Unavailable [phone] Augustine Callaway MD Unavailable Daylin Ludwig Unavailable Daylin Ludwig Unavailable [phone] Marilin Montaño TEST DESK SUPERVISOR Unavailable [phone] Esha Dewitt MD Unavailable [phone] Heather Mosquera MD Unavailable [phone] Paula Reza MD Unavailable Esha Dewitt MD Unavailable [phone] Valdo EscamillaC Unavailable [phone] Nohelia Abarca PA-C Unavailable [phone] Heather Mosquera MD Unavailable [phone] Fawad York MD Unavailable [phone] Encounter Details Date Type Department Care Team (Late st Contact Info) Description 10/13/2022 MyC Medical Advice [facility] [address] [facility] 202 [place] [address] Yareli Flynn CMA Social History [...] Optimize Self-Care Behaviors 90%(03/23/19 23 3:12 PM WASTE DISPOSAL ATTENDANT) Angelita Diaz RD Note: I will check [...] Self-Management Education Needed to Optimize Self-Care Behaviors nAgelita Diaz RD documented as of this encounter [...] documented as of this encounter Care Teams Bar Examiner Relationship Specialty Start Date End Date Paula Reza MD [address] [facility] 200 [place] [address] PCP - General Internal Medicine 08/05/21 Roopa Almonte MD [address] [facility] 200 [place] [address] Endocrinology, Diabetes, and Metabolism 01/19/21 Maryse Burton PA-C 5[address] [place] [address] Physician Link 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 Dermatology 04/14/21 Roopa Almonte MD [address] [facility] 200 [place] [address] Hospitalist Endocrinology, Diabetes, and Metabolism 05/30/21 Griffin Joshi MD [address] [facility] [address] [place] [address] Cardiovascular Disease 07/25/21 Roopa Almonte MD [address] [facility] 200 [place], [place] [address] Assigned Endocrinology Provider 09/10/21 [place] [address] [facility] 300 [place] [address] Assigned Musculoskeletal Provider 10/15/21 04/26/23 Daylin Ludwig EP [facility] [address] [address] Cardiac Rehabilitation Therapist 05/16/23 Daylin Ludwig EP [facility] [address] [address] [address] Cardiac Rehabilitation Therapist 06/08/22 06/09/23 Marilin Montaño, TEST DESK SUPERVISOR [address] [address] Assigned Heart and Vascular Provider 08/05/22 Esha Dewitt MD 420 [facility] 36 [place] [address] Gastroenterology 09/06/22 Heather Mosquera MD [address] [place] [address] Internal Medicine 09/06/22 Paula Reza MD [address] E [facility] 200 [place] [address] Assigned PCP 09/09/22 01/05/23 Esha Dewitt MD 420 [facility] 36 [place] [address] Assigned Gastroenterology Provider 09/23/22 Valdo Escamilla PA-C [address] [place], [place] [address] Assigned Neuroscience Provider 09/30/22 Nohelia Abarca PA-C [address] [place], [place] [address] Physician Link 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 Gastroenterology 10/03/22 Heather Mosquera MD [address] [address] Assigned PCP 01/06/23 Fawad York MD 909 [place] [address] Assigned Musculoskeletal Provider 04/27/23 06/25/23 documented as of this encounter
--- OUTSIDE RECORDS SUMMARY | 2023-10-02 15:43 | XMS_ITS | Encounter Summary ---
Author Organization [place] Address [address] [place] [address] Care Team Providers Care Animation Director Name Role Phone Roopa Almonte MD Unavailable [phone] Maryse Burton PA-C Unavailable Roopa Almonte MD Unavailable [phone] Griffin Joshi MD Unavailable Paula Reza MD Primary Care Provider [phone] Roopa Almonte MD Unavailable [phone] Augustine Callaway MD Unavailable Daylin Ludwig Unavailable Daylin Ludwig Unavailable [phone] Marilin Montaño MEAT APPRENTICE Unavailable [phone] Esha Dewitt MD Unavailable [phone] Heather Mosquera MD Unavailable [phone] Paula Reza MD Unavailable Esha Dewitt MD Unavailable [phone] Valdo EscamillaC Unavailable [phone] Nohelia Abarca PA-C Unavailable [phone] Heather Mosquera MD Unavailable Fawad York MD Unavailable Encounter Details Date Type Department Care Team (Late st Contact Info) Description 11/20/2022 MyC Medical Advice [facility] [address] [facility] [address] [place] [id number] Karmen [...] Optimize Self-Care Behaviors 90%(03/23/19 23 3:12 PM AGRICULTURE CONSULTANT) Angelita Diaz RD Note: I will [...] documented as of this encounter Care Teams Animation Director Relationship Specialty Start Date End Date Paula Reza MD [address] [facility] 200 [place], [place] [address] PCP - General Internal Medicine 08/05/21 Roopa Almonte MD [address] [facility] 200 [place] [address] Endocrinology, Diabetes, and Metabolism 01/19/21 Maryse Burton PA-C [address] [place] [address] Physician Furnace Process Plant Operator Dermatology 04/14/21 Roopa Almonte MD [address] [facility] 200 [place] [address] Hospitalist Endocrinology, Diabetes, and Metabolism 05/30/21 Griffin Joshi MD [address] [facility] [address] [place] [address] Cardiovascular Disease 07/25/21 Roopa Almonte MD [address] 200 [place], [place] [address] Assigned Endocrinology Provider 09/10/[address] [place] [address] [facility] 300 [place] [address] Assigned Musculoskeletal Provider 10/15/21 04/26/23 Daylin Ludwig EP [facility] [address] [place] [address] Cardiac Rehabilitation Therapist 05/16/23 Daylin Ludwig EP [facility] [address] [place] [address] Cardiac Rehabilitation Therapist 06/08/22 06/09/23 Marilin Montaño CNP [address] [place] [address] Assigned Heart and Vascular Provider 08/05/22 Esha Dewitt MD 420 [facility] 36 [place] [address] MD Gastroenterology 09/06/22 Heather Mosquera MD [address] [place] [address] Internal Medicine 09/06/22 Paula Reza MD [address] 200 [place], [place] [address] Assigned PCP 09/09/22 01/05/23 Esha Dewitt MD 420 [facility] 36 [place] [address] Assigned Gastroenterology Provider 09/23/22 Valdo Escamilla PA-C [address] [place] [address] Assigned Neuroscience Provider 09/30/22 Nohelia Abarca PA-C [address] [place] [address] Physician Furnace Process Plant Operator Gastroenterology 10/03/22 Heather Mosquera MD [address] [facility] 150 [place] [address] Assigned PCP 01/06/23 Fawad York MD 9 [place] [address] Assigned Musculoskeletal Provider 04/27/23 06/25/23 documented as of this encounter
--- OUTSIDE RECORDS SUMMARY | 2023-10-02 15:43 | XMS_ITS | Encounter Summary ---
Author Organization [place] Address [address] [place] [address] Care Team Providers Care Linseed Oil Boiler Name Role Phone Roopa Almonte MD Unavailable [phone] Maryse Burton PA-C Unavailable Roopa Almonte MD Unavailable [phone] Griffin Joshi MD Unavailable Paula Reza MD Primary Care Provider [phone] oRopa Almonte MD Unavailable [phone] Augustine Callaway MD Unavailable Daylin Ludwig Unavailable Daylin Ludwig Unavailable [phone] Marilin Montaño RECREATION CENTER DIRECTOR Unavailable [phone] Esha Dewitt MD Unavailable [phone] Heather Mosquera MD Unavailable [phone] Paula Reza MD Unavailable Esha Dewitt MD Unavailable [phone] Valdo EscamillaC Unavailable [phone] Nohelia Abarca PA-C Unavailable [phone] Heather Mosquera MD Unavailable [phone] Fawad York MD Unavailable Encounter Details Date Type Department Care Team (Late st Contact Info) Description 10/19/2022 MyC Medical Advice [facility] [address] 4th [place] [address] Paz Zavala, RN Social History [...] Education Needed to Optimize Self-Care Behaviors Angelita Diza RD Being Active - get regular physical activity, working up to at least 150 minutes per week Care Plan Diabetes Self-Management Education Needed to Optimize Self-Care Behaviors Angelita Diaz RD Monitoring - monitor glucose and ketones as directed Care Plan Diabetes Self-Management Education Needed to Optimize Self-Care Behaviors 90%(03/23/19 3:12 PM KAIAWHINA) Angelita Diaz RD Note: I will check [...] documented as of this encounter Care Teams Linseed Oil Boiler Relationship Specialty Start Date End Date Paula Reza MD [address] [facility] 200 [place] [address] PCP - General Internal Medicine 08/05/21 Roopa Almonte MD [address] [facility] 200 [place] [address] Endocrinology, Diabetes, and Metabolism 01/19/21 Maryse Burton PA-C [address] [place], [place] [address] Physician Wind Commissioning Technician Dermatology 04/14/21 Roopa Almonte MD [address] [facility] 200 [place] [address] Hospitalist Endocrinology, Diabetes, and Metabolism 05/30/21 Griffin Joshi MD [address] [facility] [address] [place] [address] Cardiovascular Disease 07/25/21 Roopa Almonte MD [address] [facility] 200 [place], [place] [address] Assigned Endocrinology Provider 09/10/21 [place] [address] [facility] 300 [place] [address] Assigned Musculoskeletal Provider 10/15/21 04/26/23 Daylin Ludwig EP [facility] [address] [place] [address] Cardiac Rehabilitation Therapist 05/16/23 Daylin Ludwig EP [facility] [address] [place] [address] Cardiac Rehabilitation Therapist 06/08/22 06/09/23 Marilin Montaño, RECREATION CENTER DIRECTOR [address] [place] [address] Assigned Heart and Vascular Provider 08/05/22 Esha Dewitt MD 420 [facility] 36 [place], [place] [address] MD Gastroenterology 09/06/22 Heather Mosquera MD [address] [place] [address] Internal Medicine 09/06/22 Paula Reza MD [address] [facility] 200 [place] [address] Assigned PCP 09/09/22 01/05/23 Esha Dewitt MD 420 [facility] 36 [place] [address] Assigned Gastroenterology Provider 09/23/22 Valdo Escamilla PA-C [address] [place], [place] [address] Assigned Neuroscience Provider 09/30/22 Nohelia Abarca PA-C [address] [place], [place] [address] Physician Wind Commissioning Technician Gastroenterology 10/03/22 Heather Mosquera MD [address] [address] Assigned PCP 01/06/23 Fawad York MD 9 [place] [address] Assigned Musculoskeletal Provider 04/27/23 06/25/23 documented as of this encounter
--- OUTSIDE RECORDS SUMMARY | 2023-10-02 15:43 | XMS_ITS | Encounter Summary ---
Author Organization [place] Address [address] [place] [address] Care Team Providers Care Lining Sewer Name Role Phone Roopa Almonte MD Unavailable [phone] Maryse Burton PA-C Unavailable Roopa Almonte MD Unavailable [phone] Griffin Joshi MD Unavailable Paula Reza MD Primary Care Provider [phone] Roopa Almonte MD Unavailable [phone] Augustine Callaway MD Unavailable Daylin Ludwig Unavailable Daylin Ludwig Unavailable [phone] Marilin Montaño [facility]ITAL[facility] Unavailable [phone] Esha Dewitt MD Unavailable [phone] Heather Mosquera MD Unavailable [phone] Paula Reza MD Unavailable Esha Dewitt MD Unavailable [phone] Valdo EscamillaC Unavailable [phone] Nohleia Abarca PA-C Unavailable [phone] Heather Mosquera MD Unavailable [phone] Fawad York MD Unavailable Encounter Details Date Type Department Care Team (Late st Contact Info) Description 10/05/2022 MyC Medical Advice [facility] [address] 4th [place] [address] Amy De La Cruz Social [...] to Optimize Self-Care Behaviors 90%(03/23/19 3:12 PM SPECIAL PROCEDURES NURSE) Angelita Diaz RD Note: I will check [...] documented as of this encounter Care Teams Lining Sewer Relationship Specialty Start Date End Date Paula Reza MD [address] [facility] 200 [place], [place] [address] PCP - General Internal Medicine 08/05/21 Roopa Almonte MD [address] [facility] 200 [place] [address] Endocrinology, Diabetes, and Metabolism 01/19/21 Maryse Burton PA-C [address] [place] [address] Physician Forest Law And Policy Professor Dermatology 04/14/21 Roopa Almonte MD [address] [facility] 200 [place] [address] Hospitalist Endocrinology, Diabetes, and Metabolism 05/30/21 Griffin Joshi MD [address] [facility] [address] [place] [address] Cardiovascular Disease 07/25/21 Roopa Almonte MD [address] [place] [address] 200 [place], [place] [address] Assigned Endocrinology Provider 09/10/21 [place] [address] [facility] 300 [place] [address] Assigned Musculoskeletal Provider 10/15/21 04/26/23 Daylin Ludwig EP [facility] [address] [place] [address] Cardiac Rehabilitation Therapist 05/16/23 Daylin Ludwig EP [facility] [address] [place] [address] Cardiac Rehabilitation Therapist 06/08/22 06/09/23 Marilin Montaño HOSPITALITY INTERNSHIP [address] [address] Assigned Heart and Vascular Provider 08/05/22 Esha Dewitt MD [address] [address] MD Gastroenterology 09/06/22 Heather Mosquera MD [address] [facility] [address] [facility] 150 [place], [place] [address] Internal Medicine 09/06/22 Paula Reza MD [address] [facility] 200 [place], [place] [address] Assigned PCP 09/09/22 01/05/23 Esha Dewitt MD [address] [address] Assigned Gastroenterology Provider 09/23/22 Valdo Escamilla PA-C [address] [facility] [address] [place], [place] [address] Assigned Neuroscience Provider 09/30/22 Nohelia Abarca PA-C [address] [place], [place] [address] Physician Forest Law And Policy Professor Gastroenterology 10/03/22 Heather Mosquera MD [address] [address] Assigned PCP 01/06/23 Fawad York MD 9 [place], [place] [address] Assigned Musculoskeletal Provider 04/27/23 06/25/23 documented as of this encounter
--- OUTSIDE RECORDS SUMMARY | 2023-10-02 15:43 | XMS_ITS | Referral Summary ---
Author Organization [place] Address [address] [place] [address] Care Team Providers Care Predatory Animal Exterminator Name Role Phone Roopa Almonte MD Unavailable Maryse Burton PA-C Unavailable Roopa Almonte MD Unavailable Griffin Joshi MD Unavailable Paula Reza MD Primary Care Provider Roopa Almonte MD Unavailable Daylin Ludwig Unavailable Marilin Montaño COUNTER INTELLIGENCE Unavailable Esha Dewitt MD Unavailable [phone] Heather Mosquera MD Unavailable Esha Dewitt MD Unavailable [phone] Valdo EscamillaC Unavailable Nohelia Abarca PA-C Unavailable [phone] Heather Mosquera MD Unavailable Allergies Active [...] MG sublingual tabletIndications: Coronary artery disease involving kenaitze coronary artery 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:06/10/2019 SR Esophageal reflux 10/06/2003 Resolved Problems Problem [...] Comments Blood Pressure 123/70 02/14/2023 1:45 PM BANDER AND CELLOPHANER MACHINE Pulse 80 02/14/2023 1:45 PM BANDER AND CELLOPHANER MACHINE Temperature 36.8 ??C (98.3 ??F) 07/08/2022 7:41 AM CD T Respiratory Rate 20 02/14/2023 1:45 PM BANDER AND CELLOPHANER MACHINE Oxygen Saturation 94% 02/14/2023 1:45 PM BANDER AND CELLOPHANER MACHINE Inhaled Oxygen Concentration - - Weight 117.9 [...] Optimize Self-Care Behaviors 90%(03/23/19 23 3:12 PM BANDER AND CELLOPHANER MACHINE) Angelita Diaz RD Note: I will check [...] Pemberton RD Medical Devices Implanted Type Area Gas Booster Engineer Device Identifier Shelf Expiration Date Model / Serial / Lot Medtronic I* [id number] [place] Xt Hf Quad Acid Conditioner-D Mri [id number] Implanted:03/17 (Quantity not on file) ICD [employer] [id number] C OBALT XT HF QUAD INTELLIGENCE CHIEF-D MRI / [id number] / Medtronic I* 4298 Attain Performa Mri Surescan [id number] Implanted:03/17 (Quantity not on file) Leads [employer] 4298 CLAUDY IN PERFORMA MRI SURESCAN / [id number] / Medtronic I* 5076 Capsurefix Novus [id number] Implanted:03/17 (Quantity not on file) Leads [employer] 5076 CAPS UREFIX NOVUS / [id number] / Medtronic I* 6935 Sprint Quattro Secure S [id number] Implanted:03/17 (Quantity not on file) Leads [employer] 6935 SPRI NT QUATTRO SECURE S / [id number] / Procedures Procedure Name Priority Date/Time Associated Diagnosis Comments CBC WITH PLATELETS STAT 02/14/2023 10 :20 AM BANDER AND CELLOPHANER MACHINE CT CHEST/ABDOMEN/PELVIS W CONTRAST Routine 12/29/2022 10:23 AM CDT BASIC METABOLIC PANEL Routine 07/08/2022 7:24 AM CDT COMPREHENSIVE METABOLIC PANEL Routine 07/07/2022 10:33 AM CDT EYE EXAM - HIM SCAN 04/13/2022 1 2:00 AM BANDER AND CELLOPHANER MACHINE LIPID PROFILE Routine 02/15/2022 10:03 AM BANDER AND CELLOPHANER MACHINE Chronic systolic congestive heart failure (H) HTN, goal below 140/90 COLOGUARD([employer] SCIENCES) Routine 01/24/2022 12:00 PM BANDER AND CELLOPHANER MACHINE Screen for colon cancer HEMOGLOBIN A1C Routine 01/10/2022 9:45 AM BANDER AND CELLOPHANER MACHINE Type 2 diabetes mellitus with diabetic nephropathy, [...] (ABNORMAL) CBC with platelets (02/14/2023 10:20 AM BANDER AND CELLOPHANER MACHINE) WBC Count 10.9 4.0 - 11.0 10e3/uL 02/14/2023 10:33 AM BANDER AND CELLOPHANER MACHINE [facility] RBC Count 4.72 4.40 - 5.90 10e6/uL 02/14/2023 10:33 AM BANDER AND CELLOPHANER MACHINE [facility] Hemoglobin 10.4(L) 13.3 - 17.7 g/dL 02/14/2023 10:33 AM BANDER AND CELLOPHANER MACHINE [facility] Hematocrit 34.3(L) 40.0 - 53.0 % 02/14/2023 10:33 AM BANDER AND CELLOPHANER MACHINE [facility] MCV 73(L) 78 - 100 fL 02/14/2023 10:33 AM BANDER AND CELLOPHANER MACHINE [facility] MCH 22.0(L) 26.5 - 33.0 pg 02/14/2023 10:33 AM BANDER AND CELLOPHANER MACHINE LABORATORY MCHC 30.3(L) 31.5 - 36.5 g/dL 02/14/2023 10:33 AM BANDER AND CELLOPHANER MACHINE LABORATORY RDW 16.5(H) 10.0 - 15.0 % 02/14/2023 10:33 AM BANDER AND CELLOPHANER MACHINE [facility] Platelet Count 400 150 - 450 10e3/uL 02/14/2023 10:33 AM BANDER AND CELLOPHANER MACHINE LABORATORY Blood BLOOD SPECIMEN / Unknown Intraosseous / Unknown 02/14/2023 10:20 AM BANDER AND CELLOPHANER MACHINE 02/14/2023 10:29 AM BANDER AND CELLOPHANER MACHINE Susannahgiorgio Mitchell [facility] MUTUEL DEPARTMENT MANAGER COUNTER INTELLIGENCE LAB - BLOOD ORDERABLES [facility] Acute Care Lab [address] [facility] Lab (1st floor, no room number) [place] [address], [facility] [phone] * (ABNORMAL) Basic metabolic panel (07/08/2022 7:24 [...] Lovell MD LAB - BLOOD DENISA AREVALO [facility] Organization Address City/State/ZIP Co de Phone Number LABORATORY [facility] Acute [facility] Lab [address] [facility] Lab (1st floor, no room number) [place] [address] [phone] * (ABNORMAL) Comprehensive metabolic panel (07/07/2022 10:33 [...] MD LAB - BLOOD ORDERABL ES LABORATORY [facility] [address] Lab (1st floor, no room number) [place] [address], [facility] [phone] * (ABNORMAL) EYE EXAM - HIM SCAN (04/13/2022 12:00 AM BANDER AND CELLOPHANER MACHINE) RETINOPATHY POSITIVE(A ) 04/13/2022 Provider Outside OTHER * (ABNORMAL) Lipid Profile (02/15/2022 10:03 AM BANDER AND CELLOPHANER MACHINE) Cholesterol 178 <200 mg/dL 02/15/2022 3:56 PM BANDER AND CELLOPHANER MACHINE [facility] Triglycerides 285(H) <150 mg/dL 02/15/2022 3:56 PM BANDER AND CELLOPHANER MACHINE [facility] Direct Measure HDL 34(L) >=40 mg/dL 02/15/2022 3:56 PM BANDER AND CELLOPHANER MACHINE [facility] LDL Cholesterol Calculated 87 <=100 mg/dL 02/15/2022 3:56 PM BANDER AND CELLOPHANER MACHINE [facility] Non HDL Cholesterol 144(H) <130 mg/dL 02/15/2022 3:56 PM BANDER AND CELLOPHANER MACHINE [facility] Blood STRUCTURE OF RIGHT UPPER LIMB / Unknown Venipuncture / Unknown 02/15/2022 10:03 AM BANDER AND CELLOPHANER MACHINE 02/15/2022 10:03 AM BANDER AND CELLOPHANER MACHINE Narrative [facility] - 02/15/2022 3:56 PM BANDER AND CELLOPHANER MACHINE Cholesterol Desirable: ??<200 mg/dL Triglycerides Normal: ??Less [...] equal to 220 mg/dL Keerthi Miner APRN COUNTER INTELLIGENCE LAB - BLOOD ORDERABLES [facility] Core Lab [address] [facility], [address] [place] [address], [facility] [phone] * (ABNORMAL) COLOGUARD([employer]) (01/24/2022 12:00 PM BANDER AND CELLOPHANER MACHINE) COLOGUARD-ABSTRAC T Positive( A) Negative 01/29/2022 7:20 AM BANDER AND CELLOPHANER MACHINE [facility] (CLIA #:[id number]) Comment: POSITIVE TEST RESULT. A positive Cologuard [...] Gilmore. et al, N Engl J Med 2014;370(14):2178-5664.) Cologuard may produce a false negative or false positive result (no colorectal cancer or precancerous polyp present at colonoscopy follow up). A negative Cologuard test result does not guarantee the absence of CRC or advanced adenoma (pre-cancer). The current Cologuard screening interval is every 3 years. ([place] Cancer Society and U.S. Multi-Society Task Force). Cologuard performance data in a 10,000 patient pivotal study using colonoscopy as the reference method can be accessed at the following location: [email or web address].Volance/results. Additional description of the Cologuard test process, warnings and precautions can be found at www.cologyubackrd.com. Stool specimen (specimen) 01/24/2022 12:00 PM BANDER AND CELLOPHANER MACHINE 01/25/2022 1:01 PM BANDER AND CELLOPHANER MACHINE Paula Reza MD LABORATORY Performing Organization Address City/[facility]/ZIP Co de Phone Number [facility] [address] [phone] [facility] (CLIA #:[id number]) [address] [place] [address] * (ABNORMAL) Hemoglobin A1c (01/10/2022 9:45 AM BANDER AND CELLOPHANER MACHINE) Hemoglobin A1C 8.9(H) 0.0 - 5.6 % 01/10/2022 9:52 AM BANDER AND CELLOPHANER MACHINE [facility] Comment: Normal <5.7% Prediabetes 5.7-6.4% ?? Diabetes 6.5% or higher Note: Adopted from ADA consensus guidelines. Blood STRUCTURE OF RIGHT UPPER LIMB / Unknown Venipuncture / Unknown 01/10/2022 9:45 AM BANDER AND CELLOPHANER MACHINE 01/10/2022 9:45 AM BANDER AND CELLOPHANER MACHINE Narrative [facility] - 01/10/2022 9:52 AM BANDER AND CELLOPHANER MACHINE Reviewed, ok with previous. Roopa Almonte MD LAB - BLOOD ORDER KEVIN [facility] Lab [address], [address] [place] [address], [place] [phone] * TSH with free T4 reflex (10/03/2021 8:11 AM CDT) TSH 2.97 0.30 - 4.20 uIU/mL 10/03/2021 8:58 AM CDT [facility] Blood STRUCTURE OF RIGHT UPPER LIMB / Unknown Venipuncture / Unknown 10/03/2021 8:11 AM CDT 10/03/2021 8:13 AM CDT Keerthi Miner DUANE COUNTER INTELLIGENCE LAB - BLOOD ORDERABLES [facility] LAB[facility] Acute Care Lab [address] Lab (1st floor, no room number) [place] [address], [facility] [phone] * Albumin Random Urine Quantitative with Creat [...] LAB - URINE ORDERA BLES OX LABORATORY [facility] [address] Lab (no room number, 1st floor of clinic) [place] [address], [facility] [phone] * HIV Antigen Antibody Combo (06/04/2020 2:43 PM CDT) HIV Antigen Antibody Combo Nonreactive NR^Nonrea ctive 06/04/2020 8:30 PM CDT [facility] Comment:HIV-1 p24 Ag & HIV-1 /HIV-2 Ab Not Detected Blood 06/04/2020 2:43 PM CDT 06/04/2020 2:44 PM CDT Shahida Sutton APRN, CNP LAB - BLOOD ORDERABLES Performing Organization Address City/[facility]/ZIP Co de Phone Number [address] [address] * Hepatitis C Screen Reflex to HCV [...] LAB - BLOOD ORDERABLES Performing Organization Address [facility] Co de Phone Number [address] [address] * PHQ-9 DEPRESSION SCREENING ORDER (05/01/2018) PHQ9 SCORE 5 Narrative Pelon Crowe - 05/01/2018 [facility] PROGRESS NOTE Provider Outside OTHER * Fecal colorectal cancer screen (FIT) (10/05/2016 10:45 AM CDT) Occult Blood Scn FIT Negative NEG [facility] Stool specimen (specimen) 10/05/2016 10:45 AM CDT 10/11/2016 11:00 AM CDT Shahida Sutton APRN, CNP LAB - STOOL S ORDERABLES Performing Organization Address City/[facility]/ZIP Co de Phone Number [facility] [address] [place] [address] from Last 3 Months or Most Recently Relevant to Health Maintenance Additional Health Concerns Active Problems Noted Date Diagnosed Date HbA1C Not In Goal 02/23/2022 Diabetes Self-Management Edu cation Needed to Optimize Self-Care Behaviors 02/23/2022 Infection Onset Date Last Indicated ESBL 01/05/2021 01/05/2021 Advance Directives For more information, please contact: [phone] * Full Code (Latest Code Status on [...] walt jung/ legal decision maker Care Teams Predatory Animal Exterminator Relationship Specialty Start Date End Date Paula Reza MD [address] [facility] 200 [place] [address] PCP - General Internal Medicine 08/05/21 Roopa Almonte MD [address] [facility] [address] [place] [address] Endocrinology, Diabetes, and Metabolism 01/19/21 Maryse Burton PA-C [address] [place] [address] Physician Restaurant Hourly Manager Dermatology 04/14/21 Roopa Almonte MD [address] [facility] [address] [place] [address] Hospitalist Endocrinology, Diabetes, and Metabolism 05/30/21 Griffin Joshi MD [address] [facility] [address] [place], [place] [address] Cardiovascular Disease 07/25/21 Roopa Almonte MD [address] [place], [place] [address] Assigned Endocrinology Provider 09/10/21 Daylin Ludwig EP [facility] [address] [place], [place] [address] Cardiac Rehabilitation Therapist 05/16/23 Marilin Montaño, COUNTER INTELLIGENCE [address] [place] [address] Assigned Heart and Vascular Provider 08/05/22 Esha Dewitt MD 420 [facility] 36 [place], [place] [address] Gastroenterology 09/06/22 Heather Mosquera MD [address] [facility] [address] [facility] 150 [place] [address] Internal Medicine 09/06/22 Esha Dewitt MD [address] [facility] 36 [place] [address] Assigned Gastroenterology Provider 09/23/22 Valdo Escamilla PA-C [address] [facility] 103 [place] [address] Assigned Neuroscience Provider 09/30/22 Nohelia Abarca PA-C [address] [facility] [place] [address] Physician Restaurant Hourly Manager Gastroenterology 10/03/22 Heather Mosquera MD [address] [facility] 150 [place] [address] Assigned PCP 01/06/23
--- OUTSIDE RECORDS SUMMARY | 2023-10-02 15:43 | XMS_ITS ---
Care Plan Created on: October 02, 2023 Mauro Terrell : 1960 Sex: Male Author Organization [place] Address [address] [place] [address] Care Team Providers Care Environmental Education Specialist Name Role Phone Roopa Almonte MD Unavailable [phone] Maryse Burton PA-C Unavailable [phone] Roopa Almonte MD Unavailable [phone] Griffin Joshi MD Unavailable Paula Reza MD Primary Care Provider Roopa Almonte MD Unavailable Daylin Ludwig Unavailable Marilin Montaño MOLD CAPPER HELPER Unavailable [phone] Esha Dewitt MD Unavailable [phone] Heather Mosquera MD Unavailable [phone] Esha Dewitt MD Unavailable [phone] Valdo EscamillaC Unavailable [phone] Nohelia Abarca PA-C Unavailable [phone] Heather Mosquera MD Unavailable Active Problems [...] 81 mg. 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 SR Esophageal reflux 10/06/2003 Resolved Problems Problem [...] to Optimize Self-Care Behaviors 90%(03/23/19 3:12 PM ADVANCED PRACTICE PSYCHIATRIC NURSE) Angelita Diaz RD Note: I will [...] monitoring (sensor placement, use of cl or sock mender/reader, understanding glucose trends, alerts and alarms, differences [...] 02/23/2022 Refer patient to appropriate extended care inspector outside steam distribution, as needed (Medication Therapy Management, Behavioral Health, [...] patient; Refer patient to appropriate extended care inspector outside steam distribution, as needed (Medication Therapy Management, Behavioral Health, [...] monitoring (sensor placement, use of cl or sock mender/reader, understanding glucose trends, alerts and alarms, differences [...]
--- OUTSIDE RECORDS SUMMARY | 2023-10-02 15:43 | XMS_ITS | Encounter Summary ---
Author Organization [facility] Address [address] [place] [address] Care Team Providers Care Raiser Helper Name Role Phone Roopa Almonte MD Unavailable [phone] Maryse Burton PA-C Unavailable [phone] Roopa Almonte MD Unavailable [phone] Griffin Joshi MD Unavailable Paula Reza MD Primary Care Provider [phone] Roopa Almonte MD Unavailable [phone] Augustine Callaway MD Unavailable Daylin Ludwig Unavailable Daylin Ludwig Unavailable [phone] Marilin Montaño FRENCH FOLDING MACHINE OPERATOR Unavailable [phone] Esha Dewitt MD Unavailable [phone] Heather Mosquera MD Unavailable [phone] Paula Reza MD Unavailable Esha Dewitt MD Unavailable [phone] Valdo EscamillaC Unavailable [phone] Nohelia Abarca PA-C Unavailable [phone] Heather Mosquera MD Unavailable [phone] Fawad York MD Unavailable Encounter Details Date Type Department Care Team (Late st Contact Info) Description 10/05/2022 MyC Medical Advice [facility] [address] 4th [place] [address] Amy De La Cruz Social [...] to Optimize Self-Care Behaviors 90%(03/23/19 3:12 PM LICENSED WEIGHER) Angelita Diaz RD Note: I will check [...] documented as of this encounter Care Teams Raiser Helper Relationship Specialty Start Date End Date Paula Reza MD [address] [facility] 200 [place], [place] [address] PCP - General Internal Medicine 08/05/21 Rooap Almonte MD [address] [facility] 200 [place] [address] Endocrinology, Diabetes, and Metabolism 01/19/21 Maryse Burton PA-C 5[address] [place] [address] Physician Corporate Wellness Coordinator Dermatology 04/14/21 Roopa Almonte MD [address] [facility] [facility] 200 [place] [address] Hospitalist Endocrinology, Diabetes, and Metabolism 05/30/21 Griffin Joshi MD [address] [facility] [address] [address] Cardiovascular Disease 07/25/21 Roopa Almonte MD [address] [place] [address] 200 [place], [place] [address] Assigned Endocrinology Provider 09/10/21 [place] [address] [facility] 300 [place] [address] Assigned Musculoskeletal Provider 10/15/21 04/26/23 Daylin Ludwig EP [facility] [address] [address] Cardiac Rehabilitation Therapist 05/16/23 Daylin Ludwig EP [facility] [address] [place] [address] 208845 Cardiac Rehabilitation Therapist 06/08/22 06/09/23 Marilin Montaño FRENCH FOLDING MACHINE OPERATOR [address] 132165 Assigned Heart and Vascular Provider 08/05/22 Esha Dewitt MD [address] 8[address] MD Gastroenterology 09/06/22 Heather Mosquera MD [address] [facility] [address] [facility] 150 [place], [place] [address] Internal Medicine 09/06/22 Paula Reza MD [address] [facility] 200 [place], [place] [address] Assigned PCP 09/09/22 01/05/23 Esha Dewitt MD [address] 721445 Assigned Gastroenterology Provider 09/23/22 Valdo Escamilla PA-C [address] [facility] [place], [place] [address] Assigned Neuroscience Provider 09/30/22 Nohelia Abarca PA-C [address] [place], [place] [address] Physician Corporate Wellness Coordinator Gastroenterology 10/03/22 Heather Mosquera MD [address] [address] Assigned PCP 01/06/23 Fawad York MD 9 [place], [place] [address]185 Assigned Musculoskeletal Provider 04/27/23 06/25/23 documented as of this encounter
--- OUTSIDE RECORDS SUMMARY | 2023-10-02 15:43 | XMS_ITS | Encounter Summary ---
Author Organization [place] Address [address] [place] [address] Care Team Providers Care Ticket Seller Name Role Phone Roopa Almonte MD Unavailable [phone] Maryse Burton PA-C Unavailable Roopa Almonte MD Unavailable [phone] Griffin Joshi MD Unavailable Paula Reza MD Primary Care Provider [phone] Roopa Almonte MD Unavailable [phone] Augustine Callaway MD Unavailable Daylin Ludwig Unavailable Daylin Ludwig Unavailable [phone] Marilin Montaño DOORPERSON Unavailable [phone] Esha Dewitt MD Unavailable [phone] Heather Mosquera MD Unavailable [phone] Paula Reza MD Unavailable Esha Dewitt MD Unavailable [phone] Valdo EscamillaC Unavailable [phone] Nohelia Abarca PA-C Unavailable [phone] Heather Mosquera MD Unavailable [phone] Fawad oYrk MD Unavailable Reason for Visit * Reason Onset Date Comments Medication Request 10/20/2022 amiodarone (P ACERONE) 200 MG tablet [[id number]] Encounter Details Date Type Department Care Team (Late st Contact Info) Description 10/20/2022 Telephone [facility] [address] [facility] [address] [address] Griffin Joshi MD [address] [facility] [address] [place] [address] Medication Request (/amiodarone (PACERONE) 200 MG tablet [[id number]] /) Social History Tobacco Use Types Packs/Day [...] being requested: amiodarone (PACERONE) 200 MG tablet [[id number]] Provider who prescribed the medication: Dr Joshi Pharmacy: [id number] - [place], [place] - [address] [place] [address] AT [address] [...] Optimize Self-Care Behaviors 90%(03/23/19 23 3:12 PM SEPARATOR TENDER) No Angelita Pemberton RD Note: I will [...] documented as of this encounter Care Teams Ticket Seller Relationship Specialty Start Date End Date Paula Reza MD [address] [address]2337 PCP - General Internal Medicine 08/05/21 Roopa Almonte MD [address] 631567 Endocrinology, Diabetes, and Metabolism 01/19/21 Maryse Burton PAAna MariaC 5[address] [place] [address] Physician Skilled Trades Teacher Dermatology 04/14/21 Roopa Almonte MD [address] 200 [place] [address] Hospitalist Endocrinology, Diabetes, and Metabolism 05/30/21 Griffin Joshi MD [address] [facility] [address] [address] Cardiovascular Disease 07/25/21 Roopa Almonte MD [address] 200 [place], [place] [address] Assigned Endocrinology Provider 09/10/21 [place] [address] [facility] 300 [place] [address] Assigned Musculoskeletal Provider 10/15/21 04/26/23 Daylin Ludwig EP [facility] [address] [place] [address] Cardiac Rehabilitation Therapist 05/16/23 Daylin Ludwig EP [facility] [address] [place] [address] Cardiac Rehabilitation Therapist 06/08/22 06/09/23 Marilin Montaño, DOORPERSON [address] 694835 Assigned Heart and Vascular Provider 08/05/22 Esha Dewitt MD 420 [facility] 36 [place], [place] [address] Gastroenterology 09/06/22 Heather Mosquera MD [address] [place] [address] Internal Medicine 09/06/22 Paula Reza MD [address] [place] [address] Assigned PCP 09/09/22 01/05/23 Esha Dewitt MD 420 [facility] 36 [place], [place] [address] Assigned Gastroenterology Provider 09/23/22 Valdo Escamilla PA-C [address] [facility] [address] [place], [place] [address] Assigned Neuroscience Provider 09/30/22 Nohelia Abarca PA-C [address] [place], [place] [address] Physician Skilled Trades Teacher Gastroenterology 10/03/22 Heather Mosquera MD [address] [place] [address] Assigned PCP 01/06/23 Fawad York MD 909 [place], [place] [address] Assigned Musculoskeletal Provider 04/27/23 06/25/23 documented as of this encounter
--- OUTSIDE RECORDS SUMMARY | 2023-10-02 15:43 | XMS_ITS | Encounter Summary ---
Author Organization [place] Address [address] [place] [address] Care Team Providers Care Hospital Nurse Liaison Name Role Phone Roopa Almonte MD Unavailable [phone] Maryse Burton PA-C Unavailable Roopa Almonte MD Unavailable [phone] Griffin Joshi MD Unavailable Paula Reza MD Primary Care Provider [phone] Roopa Almonte MD Unavailable [phone] Augustine Callaway MD Unavailable Daylin Ludwig Unavailable Daylin Ludwig Unavailable [phone] Marilin Montaño QUITLINE COUNSELOR Unavailable [phone] Esha Dewitt MD Unavailable [phone] Heather Mosquera MD Unavailable [phone] Paula Reza MD Unavailable Esha Dewitt MD Unavailable [phone] Valdo EscamillaC Unavailable [phone] Nohelia Abarca PA-C Unavailable [phone] Heather Mosquera MD Unavailable [phone] Fawad York MD Unavailable [phone] Encounter Details Date Type Department Care Team (Late st Contact Info) Description 10/13/2022 MyC Medical Advice [facility] [place] [address] [facility] 202 [place] [address] Yareli Flynn CMA Social History [...] Optimize Self-Care Behaviors 90%(03/23/19 23 3:12 PM PUBLIC WORKS SUPERVISOR) Angelita Diaz RD Note: I will [...] documented as of this encounter Care Teams Hospital Nurse Liaison Relationship Specialty Start Date End Date Paula Reza MD [address] [facility] 200 [place] [address] PCP - General Internal Medicine 08/05/21 Roopa Almonte MD [address] [facility] 200 [place] [address] Endocrinology, Diabetes, and Metabolism 01/19/21 Maryse Burton PA-C 5200 [place] [address] Physician Instrumentation Supervisor Dermatology 04/14/21 Roopa Almonte MD [address] [facility] 200 [place] [address] Hospitalist Endocrinology, Diabetes, and Metabolism 05/30/21 Griffin Joshi MD [address] [facility] [address] [address] Cardiovascular Disease 07/25/21 Roopa Almonte MD [address] [facility] 200 [place], [place] [address] Assigned Endocrinology Provider 09/10/21 [place] [address] [facility] 300 [place] [address] Assigned Musculoskeletal Provider 10/15/21 04/26/23 Daylin Ludwig EP [facility] [address] [address] Cardiac Rehabilitation Therapist 05/16/23 Daylin Ludwig EP [facility] [address] 421895 Cardiac Rehabilitation Therapist 06/08/22 06/09/23 Marilin Montaño, QUITLINE COUNSELOR [address] [address] Assigned Heart and Vascular Provider 08/05/22 Esha Dewitt MD 420 [facility] 36 [place] [address] Gastroenterology 09/06/22 Heather Mosquera MD [address] [place] [address] Internal Medicine 09/06/22 Paula Reza MD 303 [address] [facility] 200 [place] [address] Assigned PCP 09/09/22 01/05/23 Esha Dewitt MD 420 [facility] 36 [place] [address] Assigned Gastroenterology Provider 09/23/22 Valdo Escamilla PA-C [address] [place], [place] [address] Assigned Neuroscience Provider 09/30/22 Nohelia Abarca PA-C [address] [place], [place] [address] Physician Instrumentation Supervisor Gastroenterology 10/03/22 Heather Mosquera MD [address] 7947[address] Assigned PCP 01/06/23 Fawad York MD 909 [place] [address] Assigned Musculoskeletal Provider 04/27/23 06/25/23 documented as of this encounter
--- OUTSIDE RECORDS SUMMARY | 2023-10-02 15:43 | XMS_ITS | Encounter Summary ---
Author Organization [facility] Address [address] [place] [address] Care Team Providers Care Chainstitch Elastic Attacher Name Role Phone Roopa Almonte MD Unavailable [phone] Maryse Burton-C Unavailable Roopa Almonte MD Unavailable [phone] Griffin Joshi MD Unavailable Paula Reza MD Primary Care Provider Roopa Almonte MD Unavailable [phone] Augustine Callaway MD Unavailable Daylin Ludwig Unavailable Daylin Ludwig Unavailable [phone] Marilin Montaño INTELLIGENCE MANAGER Unavailable [phone] Esha Dewitt MD Unavailable [phone] Heather Mosquera MD Unavailable [phone] Esha Dewitt MD Unavailable [phone] Valdo Escamilla PA-C Unavailable [phone] Nohelia Abarca-C Unavailable [phone] Heather Mosquera MD Unavailable Fawad York MD Unavailable Encounter Details Date Type Department Care Team (Late st Contact Info) Description 01/29/2023 MyC Medical Advice [facility] [address] 4th [place] [address] Rina Levin, KASIE Social History [...] to Optimize Self-Care Behaviors 90%(03/23/19 3:12 PM MICRO COMPUTER SPECIALIST) Angelita Diaz RD Note: I will [...] documented as of this encounter Care Teams Chainstitch Elastic Attacher Relationship Specialty Start Date End Date Paula Reza MD [address] [facility] 200 [place] [address] PCP - General Internal Medicine 08/05/21 Roopa Almonte MD [address] [facility] 200 [place] [address] Endocrinology, Diabetes, and Metabolism 01/19/21 Maryse Burton, PAAna MariaC 5[address] [place] [address] Physician Car Wash Attendant Dermatology 04/14/21 Roopa Almonte MD [address] [address] Hospitalist Endocrinology, Diabetes, and Metabolism 05/30/21 Griffin Joshi MD 6[address] [facility] [address] [place] [address] Cardiovascular Disease 07/25/21 Roopa Almonte MD [address] [place] [address] 200 [place], [place] [address] Assigned Endocrinology Provider 09/10/21 [place] [address] [facility] 300 [place] [address] Assigned Musculoskeletal Provider 10/15/21 04/26/[address] [facility] [address] [address] Cardiac Rehabilitation Therapist 05/16/[address] [facility] [address] [address] Cardiac Rehabilitation Therapist 06/08/22 06/09/23 Marilin Montaño, INTELLIGENCE MANAGER 6405 [place] [address] Assigned Heart and Vascular Provider 08/05/22 Esha Dewitt MD 420 [facility] 36 [place] [address] MD Gastroenterology 09/06/22 Heather Mosquera MD 6545 [facility] 150 [place] [address] Internal Medicine 09/06/22 Esha Dewitt MD [address] [address] Assigned Gastroenterology Provider 09/23/22 Valdo Escamilla PA-C 6363 [facility] 103 [place] [address] Assigned Neuroscience Provider 09/30/22 Nohelia Abarca PA-C 2450 [place] [address] Physician Car Wash Attendant Gastroenterology 10/03/22 Heahter Mosquera MD [address] [facility] [address] [facility] 150 [place], [place] [address] Assigned PCP 01/06/23 Fawad York MD 909 [place], [place] [address] Assigned Musculoskeletal Provider 04/27/23 06/25/23 documented as of this encounter
--- OUTSIDE RECORDS SUMMARY | 2023-10-02 15:44 | XMS_ITS | Encounter Summary ---
Author Organization [place] Address [address] [place] [address] Care Team Providers Care Solutions Operator Name Role Phone Roopa Almonte MD Unavailable [phone] Maryse Burton PA-C Unavailable [phone] Roopa Almonte MD Unavailable [phone] Griffin Joshi MD Unavailable Rina Magallon RN Unavailable [phone] Paula Reza MD Primary Care Provider [phone] Roopa Almonte MD Unavailable [phone] Rosa Maria Love Unavailable [phone] Augustine Callaway MD Unavailable Porsha Michaels APRN SAND MOLDER Unavailable [phone] Shahida Sutton APRN SAND MOLDER Unavailable Un available Daylin Ludwig Unavailable [phone] Laurel Velasquez MD Unavailable [phone] Daylin Ludwig Unavailable [phone] Paula Reza MD Unavailable Porsha Michaels APRN SAND MOLDER Unavailable Laurel Velasquez MD Unavailable [phone] Shahida Sutton APRN SAND MOLDER Unavailable Un available Marilin Montaño SAND MOLDER Unavailable Esha Dewitt MD Unavailable [phone] Heather Mosquera MD Unavailable Paula Reza MD Unavailable Esha Dewitt MD Unavailable [phone] Valdo Escamilla PAAna MariaC Unavailable Nohelia AbarcaC Unavailable [phone] Heather Mosquera MD Unavailable Fawad York MD Unavailable Encounter Details Date Type Department Care Team (Late st Contact Info) Description 05/02/2022 Telephone [facility] [address] [address] Laurel Velasquez MD [address] [address] Social History Tobacco Use [...] Coronavirus/COVID-19? No / Unsure 05/02/2022 3:45 PM HAND CLOTH CUTTER documented as of this encounter Miscellaneous Notes * Telephone Encounter - Abdulaziz Mendez - 05/02/2022 1:59 PM CST Spoke to patient and patient has decided to keep his appointment for today 05/02/22 at 4:[address] Velasquez. He does not want to cancel his appointment. CLOTH CUTTER * Telephone Encounter - Crystal Dietrich - 05/02/2022 1:35 PM CST [facility] Phone Message May a detailed message be left on voicemail: yes Reason for Call: Other: Pt called in wanting to reschedule TAVR appointment again. Please call patient back to further coordinate at [phone] Action Taken: Other: cardiology Travel Screening: Not Applicable Thank you! [facility] CLOTH CUTTER documented in this encounter Plan of [...] to Optimize Self-Care Behaviors 90%(03/23/19 3:12 PM HAND CLOTH CUTTER) Angelita Diaz RD Note: I will check [...] documented as of this encounter Care Teams Solutions Operator Relationship Specialty Start Date End Date Paula Reza MD [address] [facility] 200 [place] [address] PCP - General Internal Medicine 6/3/22 Roopa Almonte MD [address] [facility] [facility] 200 [place] [address] Endocrinology, Diabetes, and Metabolism 01/19/21 Maryse Burton PA-C 5200 [place] [address] Physician Prize Jacker Dermatology 04/14/21 Roopa Almonte MD [address] [facility] 200 [place] [address] Hospitalist Endocrinology, Diabetes, and Metabolism 05/30/21 Griffin Joshi MD [address] [facility] [address] [place] [address] Cardiovascular Disease 07/25/21 Rina Magallon, RN Lead Vitamin Manager 07/29/21 07/11/22 Roopa Almonte MD [address] [place] [address] 200 [place], [place] [address] Assigned Endocrinology Provider 09/10/21 Rosa Maria Love CHW Community Health Worker 10/06/21 07/11/22 [place] [address] [facility] 300 [place] [address] Assigned Musculoskeletal Provider 10/15/21 04/26/23 Porsha Michaels APRN SAND MOLDER [address] [place] [address] Assigned Heart and Vascular Provider 02/11/22 05/12/22 Shahida Sutton APRN SAND MOLDER [address] [place] [address] Assigned PCP 04/08/22 06/30/22 Daylin Ludwig, [facility] [address] [place] [address] Cardiac Rehabilitation Therapist 05/16/23 Laurel Velasquez MD [address] [place] [address] Assigned Heart and Vascular Provider 05/13/22 06/30/22 Daylin Ludwig, [facility] [address] [place] [address] Cardiac Rehabilitation Therapist 06/08/22 06/09/23 Paula Reza MD [address] E [facility] 200 [place], [place] [address] Assigned PCP 07/01/22 07/07/22 Porsha Michaels APRN SAND MOLDER [address] [place] [address] Assigned Heart and Vascular Provider 07/01/22 07/07/22 Laurel Velasquez MD [address] [place], [place] [address] Assigned Heart and Vascular Provider 07/08/22 08/04/22 Shahida Sutton APRN SAND MOLDER Assigned PCP 07/08/22 09/08/22 Marilin Montaño, SAND MOLDER [address] [place] [address] Assigned Heart and Vascular Provider 08/05/22 Esha Dew[place] MD [address] [address] MD Gastroenterology 09/06/22 Heather Mosquera MD [address] [facility] [address] [facility] 150 [place] [address] Internal Medicine 09/06/22 Paula Reza MD 303 E [facility] 200 [place] [address] Assigned PCP 09/09/22 01/05/23 Esha Dewitt MD [address] [place] [address] Assigned Gastroenterology Provider 09/23/22 Valdo Escamilla PA-C 6363 [facility] S [facility] 103 [place] [address] Assigned Neuroscience Provider 09/30/22 Nohelia Abarca PA-C 2450 [place] [address] Physician Prize Jacker Gastroenterology 10/03/22 Heather Mosquera MD [address] [facility] [address] [facility] 150 [place], [place] [address] Assigned PCP 01/06/23 Fawad York MD [address] [place] [address] 317765 Assigned Musculoskeletal Provider 04/27/23 06/25/23 documented as of this encounter
--- OUTSIDE RECORDS SUMMARY | 2023-10-02 15:44 | XMS_ITS | Encounter Summary ---
Author Organization [facility] Address [address] [place] [address] Care Team Providers Care Apartment Leasing Agent Name Role Phone Roopa Almonte MD Unavailable [phone] Maryse Burton PA-C Unavailable Roopa Almonte MD Unavailable [phone] Griffin Joshi MD Unavailable Paula Reza MD Primary Care Provider [phone] Roopa Almonte MD Unavailable [phone] Augustine Callaway MD Unavailable Daylin Ludwig Unavailable Daylin Ludwig Unavailable [phone] Marilin Montaño BODY LINER Unavailable [phone] Esha Dewitt MD Unavailable [phone] Heather Mosquera MD Unavailable [phone] Paula Reza MD Unavailable Esha Dewitt MD Unavailable [phone] Valdo EscamillaC Unavailable [phone] Nohelia Abarca PA-C Unavailable [phone] Heather Mosquera MD Unavailable [phone] Fawad York MD Unavailable [phone] Encounter Details Date Type Department Care Team (Late st Contact Info) Description 10/03/2022 MyC Medical Advice [facility] [address] 4[address] [place] [address] Paz Zavala, RN Social History [...] Education Needed to Optimize Self-Care Behaviors Angelita iDaz RD Healthy Eating - follow a healthy [...] to Optimize Self-Care Behaviors 90%(03/23/19 3:12 PM PROCEDURE WRITER) Angelita Diaz RD Note: I will [...] documented as of this encounter Care Teams Apartment Leasing Agent Relationship Specialty Start Date End Date Paula Reza MD [address] [facility] 200 [place] [address] PCP - General Internal Medicine 08/05/21 Roopa Almonte MD [address] [facility] 200 [place] [address] Endocrinology, Diabetes, and Metabolism 01/19/21 Maryse Burton PA-C 5200 [place], [place] [address] Physician Intake Man Dermatology 04/14/21 Roopa Almonte MD [address] [facility] 200 [place] [address] Hospitalist Endocrinology, Diabetes, and Metabolism 05/30/21 Griffin Joshi MD [address] [facility] [address] [address] Cardiovascular Disease 07/25/21 Roopa Almonte MD [address] [facility] 200 [place], [place] [address] Assigned Endocrinology Provider 09/10/21 [place] [address] [facility] 300 [place] [address] Assigned Musculoskeletal Provider 10/15/21 04/26/23 Daylin Ludwig EP [facility] [address] [address] Cardiac Rehabilitation Therapist 05/16/23 Daylin Ludwig EP [facility] [address] 377135 Cardiac Rehabilitation Therapist 06/08/22 06/09/23 Marilin Montaño, BODY LINER [address] [address] Assigned Heart and Vascular Provider 08/05/22 Esha Dewitt MD 420 [facility] 36 [place], [place] [address] MD Gastroenterology 09/06/22 Heather Mosquera MD [address] [facility] 150 [place] [address] Internal Medicine 09/06/22 Paula Reza MD 303 E [facility] 200 [place] [address] Assigned PCP 09/09/22 01/05/23 Esha Dewitt MD 420 [facility] 36 [place] [address] Assigned Gastroenterology Provider 09/23/22 Valdo Escamilla PA-C [address] [place], [place] [address] Assigned Neuroscience Provider 09/30/22 Nohelia Abarca PA-C [address] [place] [address] Physician Intake Man Gastroenterology 10/03/22 Heather Mosquera MD [address] [address] Assigned PCP 01/06/23 Fawad York MD 9 [place], [place] [address] Assigned Musculoskeletal Provider 04/27/23 06/25/23 documented as of this encounter
--- OUTSIDE RECORDS SUMMARY | 2023-10-02 15:44 | XMS_ITS | Encounter Summary ---
Author Organization [facility] Address [address] [place] [address] Care Team Providers Care It Account Manager Name Role Phone Roopa Almonte MD Unavailable [phone] Maryse Burton PA-C Unavailable [phone] Roopa Almonet MD Unavailable [phone] Griffin Joshi MD Unavailable Rina Magallon RN Unavailable [phone] Paula Reza MD Primary Care Provider [phone] Roopa Almonte MD Unavailable [phone] Rosa Maria Love Unavailable [phone] Augustine Callaway MD Unavailable Porsha Michaels APRN MICROCHIP SPECIALIST Unavailable [phone] Shahida Sutton APRN MICROCHIP SPECIALIST Unavailable Un available Daylin Ludwig Unavailable [phone] Laurel Velasquez MD Unavailable [phone] Daylin Ludwig Unavailable [phone] Paula Reza MD Unavailable Porsha Michaels APRN MICROCHIP SPECIALIST Unavailable RonArelyyemi Sands MD Unavailable Shahida Sutton APRN MICROCHIP SPECIALIST Unavailable Un available Marilin Montaño MICROCHIP SPECIALIST Unavailable Esha Dewitt MD Unavailable [phone] EvelineHeather pastrana MD Unavailable [phone] Paula Reza MD Unavailable Esha Dewitt MD Unavailable Valdo Escamilla PA-C Unavailable [phone] Nohelia Abarca-C Unavailable [phone] Heather Mosquera MD Unavailable [phone] Fawad York MD Unavailable Encounter Details Date Type Department Care Team (Late st Contact Info) Description 05/02/2022 [facility] Medical Advice [facility] Sleep [address] [address] Alexa Madden Social History Tobacco [...] Coronavirus/COVID-19? No / Unsure 05/02/2022 3:45 PM DISINTEGRATOR documented as of this encounter Plan of [...] to Optimize Self-Care Behaviors 90%(03/23/19 3:12 PM DISINTEGRATOR) Angelita Diaz RD Note: I will check [...] documented as of this encounter Care Teams It Account Manager Relationship Specialty Start Date End Date Paula Reza MD [address] [facility] 200 [place], [place] [address] PCP - General Internal Medicine 08/05/21 Roopa Almonte MD 303 E [facility] 200 [place], [place] [address] Endocrinology, Diabetes, and Metabolism 01/19/21 Maryse Burton, PA-C 5200 [place] [address] Physician Dye House Supervisor Dermatology 04/14/21 Roopa Almonte MD [address] [facility] 200 [place] [address] Hospitalist Endocrinology, Diabetes, and Metabolism 05/30/21 Griffin Joshi MD [address] [place] [address] Cardiovascular Disease 07/25/21 Rina Magallon, RN Lead Re Examiner 07/29/21 07/11/22 Roopa Almonte MD [address] [facility] 200 [place], [place] [address] Assigned Endocrinology Provider 09/10/21 Rosa Maria Love, CHW Community Health Worker 10/06/21 07/11/22 [place] [address] [facility] 300 [place] [address] Assigned Musculoskeletal Provider 10/15/21 04/26/23 Porsha Michaels APRN MICROCHIP SPECIALIST [address] [address] Assigned Heart and Vascular Provider 02/11/22 05/12/22 Shahida Sutton APRN MICROCHIP SPECIALIST [address] [address] Assigned PCP 04/08/22 06/30/[address] [facility] [address] [address] Cardiac Rehabilitation Therapist 05/16/23 Laurel Velasquez MD [address] [address] Assigned Heart and Vascular Provider 05/13/22 06/30/[address] [facility] [address] [address] Cardiac Rehabilitation Therapist 06/08/22 06/09/23 Paula Reza MD [address] 200 [place] [address] Assigned PCP 07/01/22 07/07/22 Porsha Michaels APRN MICROCHIP SPECIALIST [address] [place] [address] Assigned Heart and Vascular Provider 07/01/22 07/07/22 Laurel Velasquez MD [address] [place] [address] Assigned Heart and Vascular Provider 07/08/22 08/04/22 Shahida Sutton APRN MICROCHIP SPECIALIST Assigned PCP 07/08/22 09/08/22 Marilin Montaño, MICROCHIP SPECIALIST [address] [place] [address] Assigned Heart and Vascular Provider 08/05/22 Esha Dewitt MD [address] [place] [address] Gastroenterology 09/06/22 Heather Mosquera MD [address] [place] [address] Internal Medicine 09/06/22 Paula Reza MD [address] [place] [address] Assigned PCP 09/09/22 01/05/23 Esha Dewitt MD [address] [place] [address] 387825 Assigned Gastroenterology Provider 09/23/22 Valdo Escamilla PA-C 6363 [facility] 103 [place], [place] [address] Assigned Neuroscience Provider 09/30/22 Nohelia Abarca PA-C [address]50 [place], [place] [address] Physician Dye House Supervisor Gastroenterology 10/03/22 Heather Mosquera MD [facility]45 [facility] 150 [place], [place] [address] Assigned PCP 01/06/23 Fawad York MD [address] [place], [place] [address] Assigned Musculoskeletal Provider 04/27/23 06/25/23 documented as of this encounter
--- OUTSIDE RECORDS SUMMARY | 2023-10-02 15:44 | XMS_ITS | Encounter Summary ---
Author Organization [facility] Address [address] [place] [address] Care Team Providers Care Drywall Professional Name Role Phone Roopa Almonte MD Unavailable [phone] Maryse Burton PA-C Unavailable [phone] Roopa Almonte MD Unavailable [phone] Griffin Joshi MD Unavailable Rina Magallon RN Unavailable [phone] Paula Reza MD Primary Care Provider [phone] Roopa Almonte MD Unavailable [phone] Rosa Maria Love Unavailable [phone] Augustine Callaway MD Unavailable Porsha Michaels APRN MIGRATORY WORKER Unavailable [phone] Paula Reza MD Unavailable Shahida Sutton APRN MIGRATORY WORKER Unavailable Un available Daylin Ludwig Unavailable [phone] Laurel Velasquez MD Unavailable [phone] Daylin Ludwig Unavailable [phone] Paula Reza MD Unavailable Brando, Kim DUANE MIGRATORY WORKER Unavailable [phone] Laurel Velasquez MD Unavailable [phone] Shahida Sutton ROLLER MILL TENDER MIGRATORY WORKER Unavailable Un available GerryyamilMarilin MIGRATORY WORKER Unavailable [phone] Esha Dewitt MD Unavailable [phone] Heather Mosquera MD Unavailable Paula Reza MD Unavailable Esha Dewitt MD Unavailable [phone] Valdo Escamilla PA-C Unavailable [phone] Nohelia Abarca-C Unavailable Heather Mosquera MD Unavailable [phone] Fawad York MD Unavailable [phone] Reason for Visit * Reason Onset Date Comments Appointment 03/29/2022 Reschedule TAVR Encounter Details Date Type Department Care Team (Late st Contact Info) Description 03/29/2022 Telephone [facility] [address] [address] Brady Lion MD Appointment (Reschedule [...] Not Applicable Thank you! Specialty Access Center LE POLISHER documented in this encounter Plan of Treatment [...] Optimize Self-Care Behaviors 90%(03/23/19 23 3:12 PM NEEDLE POLISHER) Angelita Diaz RD Note: I will check [...] documented as of this encounter Care Teams Drywall Professional Relationship Specialty Start Date End Date Paula Reza MD [address] [facility] [address] [address] PCP - General Internal Medicine 08/05/21 Roopa Almonte MD [address] [address] Endocrinology, Diabetes, and Metabolism 01/19/21 Maryse Burton PAAna MariaC 5200 [place] [address] Physician Aircraft Cylinder Mechanic Dermatology 04/14/21 Roopa Almonte MD 303 E [facility] 200 [place] [address] Hospitalist Endocrinology, Diabetes, and Metabolism 05/30/21 Griffin Joshi MD [address] [facility] [address] [place] [address] Cardiovascular Disease 07/25/21 Rina Magallon, RN Lead Sales Team Recruiter 07/29/21 07/11/22 Roopa Almonte MD [address] [facility] 200 [place], [place] [address] Assigned Endocrinology Provider 09/10/21 Rosa Maria Love CHW Community Health Worker 10/06/21 07/11/22 [place] [address] [facility] 300 [place] [address] Assigned Musculoskeletal Provider 10/15/21 04/26/23 Porsha Michaels APRN MIGRATORY WORKER [address] [place] [address] Assigned Heart and Vascular Provider 02/11/22 05/12/22 Paula Reza MD [address] [facility] [facility] 200 [place] [address] Assigned PCP 03/25/22 04/07/22 Shahida Sutton APRN MIGRATORY WORKER [address] [facility] 200 [place] [address] Assigned PCP 04/08/22 06/30/22 Daylin Ludwig EP [facility] [address] [address] Cardiac Rehabilitation Therapist 05/16/23 Laurel Velasquez MD [address] [address] Assigned Heart and Vascular Provider 05/13/22 06/30/22 Daylin Ludwig EP [facility] [address] [address] Cardiac Rehabilitation Therapist 06/08/22 06/09/23 Paula Reza MD 303 E [facility] 200 [place], [place] [address] Assigned PCP 07/01/22 07/07/22 Porsha Michaels APRN MIGRATORY WORKER [address] [address] Assigned Heart and Vascular Provider 07/01/22 07/07/22 Laurel Velasquez MD [address] 300415 Assigned Heart and Vascular Provider 07/08/22 08/04/22 Shahida Sutton APRN MIGRATORY WORKER Assigned PCP 07/08/22 09/08/22 Marilin Montaño, MIGRATORY WORKER [address] [address]68[address] Assigned Heart and Vascular Provider 08/05/22 Esha Dewitt MD [address] [place] [address] 36 [place], [place] [address] Gastroenterology 09/06/22 Heather Mosquera MD [address] [place], [place] [address] Internal Medicine 09/06/22 Paula Reza MD [address] [facility] 200 [place], [place] [address] Assigned PCP 09/09/22 01/05/23 Esha Dewitt MD 420 [facility] 36 [place], [place] [address] Assigned Gastroenterology Provider 09/23/22 Valdo Escamilla PA-C [address] [facility] 103 [place], [place] [address] Assigned Neuroscience Provider 09/30/22 Nohelia Abarca PA-C 2450 [place], [place] [address] Physician Aircraft Cylinder Mechanic Gastroenterology 10/03/22 Heather Mosquera MD [address] [facility] [address] [place], [place] [address] Assigned PCP 01/06/23 Fawad York MD 909 [place] [address] Assigned Musculoskeletal Provider 04/27/23 06/25/23 documented as of this encounter
--- OUTSIDE RECORDS SUMMARY | 2023-10-02 15:44 | XMS_ITS | Encounter Summary ---
Author Organization [facility] Address [address] [place] [address] Care Team Providers Care Data Collection Associate Name Role Phone Roopa Almonte MD Unavailable [phone] Maryse Burton PA-C Unavailable [phone] Roopa Almonte MD Unavailable [phone] Griffin Joshi MD Unavailable Rina Magallon RN Unavailable [phone] Paula Reza MD Primary Care Provider [phone] Roopa Almonte MD Unavailable [phone] Rosa Maria Love Unavailable [phone] Augustine Callaway MD Unavailable Porsha Michaels APRN MINE SHIFTER Unavailable [phone] Paula Reza MD Unavailable Shahida Sutton APRN MINE SHIFTER Unavailable Un available Daylin Ludwig Unavailable [phone] Laurel Velasquez MD Unavailable [phone] Daylin Ludwig Unavailable [phone] Paula Reza MD Unavailable Porsha Michaels APRN MINE SHIFTER Unavailable Laurel Velasquez MD Unavailable Shahida Sutton DATA CENTER TECHNICIAN MINE SHIFTER Unavailable Un available Marilin Montaño MINE SHIFTER Unavailable Esha Dewitt MD Unavailable [phone] Heather Mosquera MD Unavailable [phone] Paula Reza MD Unavailable Esha Dewitt MD Unavailable [phone] Valdo Escamilla PA-C Unavailable [phone] Nohelia Abarca PA-C Unavailable [phone] Heather Mosquera MD Unavailable Fawad York MD Unavailable [phone] Reason for Visit * Reason Onset Date Comments information for employers 03/28/2022 Inform ation needed for reasonable accommodations request Encounter Details Date Type Department Care Team (Late st Contact Info) Description 03/28/2022 Telephone [facility] 6405 [facility] [address] [place] [address] Porsha Michaels APRN MINE SHIFTER 6405 [facility] [place] [address] information for employers (Information needed for reasonable [...] Not Applicable Thank you! Specialty Access Center Y EQUIPMENT MECHANIC documented in this encounter Plan of Treatment [...] Optimize Self-Care Behaviors 90%(03/23/19 23 3:12 PM DAIRY EQUIPMENT MECHANIC) Angelita Diaz RD Note: I will [...] as of this encounter Care Teams Data Collection Associate Relationship Specialty Start Date End Date Paula Reza MD [address] [employer] [address] [address] PCP - General Internal Medicine 08/05/21 Roopa Almonte MD [address] [facility] 200 [place] [address] Endocrinology, Diabetes, and Metabolism 01/19/21 Maryse Burton, PA-C 5200 [place] [address] Physician Record Center Coordinator Dermatology 04/14/21 Roopa Almonte MD 303 E [facility] 200 [place] [address] Hospitalist Endocrinology, Diabetes, and Metabolism 05/30/21 Griffin Joshi MD [address] [facility] [address] [place] [address] Cardiovascular Disease 07/25/21 Rina Magallon, RN Lead Bowling Floor Desk Clerk 07/29/21 07/11/22 Roopa Almonte MD [address] [facility] 200 [place], [place] [address] Assigned Endocrinology Provider 09/10/21 Rosa Maria Love CHW Community Health Worker 10/06/21 07/11/22 [place] [address] [facility] 300 [place] [address] Assigned Musculoskeletal Provider 10/15/21 04/26/23 Porsha Michaels APRN MINE SHIFTER [address] [place] [address] Assigned Heart and Vascular Provider 02/11/22 05/12/22 Paula Reza MD [address] [address] Assigned PCP 03/25/22 04/07/22 Shahida Sutton APRN MINE SHIFTER [address] [address] Assigned PCP 04/08/22 06/30/22 Daylin Ludwig, MIKI [facility] [address] [address] Cardiac Rehabilitation Therapist 05/16/23 Laurel Velasquez MD [address] [address] Assigned Heart and Vascular Provider 05/13/22 06/30/22 Daylin Ludwig, MIKI [facility] [address] [address] Cardiac Rehabilitation Therapist 06/08/22 06/09/23 Paula Reza MD [address] [place] [address] Assigned PCP 07/01/22 07/07/22 Porsha Michaels APRN MINE SHIFTER [address] [address] Assigned Heart and Vascular Provider 07/01/22 07/07/22 Laurel Velasquez MD [address] [address] Assigned Heart and Vascular Provider 07/08/22 08/04/22 Shahida Sutton APRN MINE SHIFTER Assigned PCP 07/08/22 09/08/22 Marilin Montaño, MINE SHIFTER [address] [address] Assigned Heart and Vascular Provider 08/05/22 Esha Dewitt MD 420 [facility] 36 [place] [address] Gastroenterology 09/06/22 Heather Mosquera MD [address] [place], [place] [address] Internal Medicine 09/06/22 Paula Reza MD 303 E [facility] 200 [place], [place] [address] Assigned PCP 09/09/22 01/05/23 Esha Dewitt MD 420 [facility] 36 [place], [place] [address] Assigned Gastroenterology Provider 09/23/22 Valdo Escamilla PA-C 6363 [facility] [address] 103 [place], [place] [address] Assigned Neuroscience Provider 09/30/22 Nohelia Abarca PA-C [address] [place], [place] [address] Physician Record Center Coordinator Gastroenterology 10/03/22 Heather Mosquera MD [address] [place], [place] [address] Assigned PCP 01/06/23 Fawad York MD 909 [place], [place] [address] Assigned Musculoskeletal Provider 04/27/23 06/25/23 documented as of this encounter
--- OUTSIDE RECORDS SUMMARY | 2023-10-02 15:44 | XMS_ITS | Encounter Summary ---
Author Organization [place] Address [address] [place] [address] Care Team Providers Care Mechanical Facilities Technician Name Role Phone Roopa Almonte MD Unavailable [phone] Maryse Burton PA-C Unavailable [phone] Roopa Almonte MD Unavailable [phone] Griffin Joshi MD Unavailable Rina Magallon RN Unavailable [phone] Paula Reza MD Primary Care Provider [phone] Roopa Almonte MD Unavailable [phone] Rosa Maria Love Unavailable [phone] Augustine Callaway MD Unavailable Shahida Sutton APRN CEMENT OR CONCRETE FINISHING SUPERVISOR Unavailable Un available Porsha Michaels APRN CEMENT OR CONCRETE FINISHING SUPERVISOR Unavailable [phone] Paula Reza MD Unavailable Shahida Sutton APRN CEMENT OR CONCRETE FINISHING SUPERVISOR Unavailable Un available Daylin Ludwig Unavailable [phone] Laurel Velasquez MD Unavailable [phone] Daylin Ludwig Unavailable [phone] Paula Reza MD Unavailable Porsha Michaels APRN CEMENT OR CONCRETE FINISHING SUPERVISOR Unavailable [phone] Laurel Velasquez MD Unavailable [phone] HermanIndu huertaprincess Cummings AUTO SERVICE ADVISOR CEMENT OR CONCRETE FINISHING SUPERVISOR Unavailable Un available Marilin Montaño CEMENT OR CONCRETE FINISHING SUPERVISOR Unavailable [phone] Esha Dewitt MD Unavailable [phone] Heather Mosquera MD Unavailable [phone] Paula Reza MD Unavailable Esha Dewitt MD Unavailable [phone] Valdo Escamilla PA-C Unavailable [phone] Nohelia Abarca-C Unavailable [phone] Heather Mosquera MD Unavailable [phone] Fawad York MD Unavailable [phone] Encounter Details Date Type Department Care Team (Late st Contact Info) Description 02/27/2022 MyC Medical Advice [facility] [address] [facility] [address] [place] [address] Carmen Prince, MATERIAL HANDLING EQUIPMENT STEVEDORE Social History Tobacco Use Types Packs/Day Years [...] Coronavirus/COVID-19? No / Unsure 02/21/2022 12:25 PM FOREIGN FOOD SPECIALTY COOK documented as of this encounter Plan of [...] to Optimize Self-Care Behaviors 90%(03/23/19 3:12 PM FOREIGN FOOD SPECIALTY COOK) Angelita Diaz RD Note: I will check [...] documented as of this encounter Care Teams Mechanical Facilities Technician Relationship Specialty Start Date End Date Paula Reza MD [address] [facility] 200 [place] [address] PCP - General Internal Medicine 08/05/21 Roopa Almonte MD [address] [facility] 200 [place] [address] Endocrinology, Diabetes, and Metabolism 01/19/21 Maryse Burton PA-C 5200 [place] [address] Physician Circular Knitter Helper Dermatology 04/14/21 Roopa Almonte MD [address] [facility] 200 [place] [address] Hospitalist Endocrinology, Diabetes, and Metabolism 05/30/21 Griffin Joshi MD [address] [facility] [address] [place], [place] [address] Cardiovascular Disease 07/25/21 Rina Magallon, RN Lead Mercury Cracking Tester 07/29/21 07/11/22 Roopa Almonte MD [address] [facility] 200 [place] [address] Assigned Endocrinology Provider 09/10/21 Rosa Maria Love CHW Community Health Worker 10/06/21 07/11/22 [place] [address] [facility] 300 [place] [address] Assigned Musculoskeletal Provider 10/15/21 04/26/23 Shahida Sutton APRN CEMENT OR CONCRETE FINISHING SUPERVISOR Assigned PCP 12/24/21 03/24/22 Porsha Michaels APRN CEMENT OR CONCRETE FINISHING SUPERVISOR [address] [address] Assigned Heart and Vascular Provider 02/11/22 05/12/22 Paula Reza MD [address] 200 [place] [address] Assigned PCP 03/25/22 04/07/22 Shahida Sutton APRN CEMENT OR CONCRETE FINISHING SUPERVISOR [address] 200 [place] [address] Assigned PCP 04/08/22 06/30/22 Daylin Ludwig EP [facility] [address] [address] Cardiac Rehabilitation Therapist 05/16/23 Laurel Velasquez MD [address] [address] Assigned Heart and Vascular Provider 05/13/22 06/30/22 Daylin Ludwig EP [facility] [address] [place] [address] Cardiac Rehabilitation Therapist 06/08/22 06/09/23 Paula Reza MD [address] [facility] 200 [place], [place] [address] Assigned PCP 07/01/22 07/07/22 Porsha Michaels APRN CEMENT OR CONCRETE FINISHING SUPERVISOR [address] [place] [address] Assigned Heart and Vascular Provider 07/01/22 07/07/22 Laurel Velasquez MD [address] [place] [address] Assigned Heart and Vascular Provider 07/08/22 08/04/22 Shahida Sutton APRN CEMENT OR CONCRETE FINISHING SUPERVISOR Assigned PCP 07/08/22 09/08/22 Marilin Montaño, CEMENT OR CONCRETE FINISHING SUPERVISOR [address] [place] [address] Assigned Heart and Vascular Provider 08/05/22 Esha Dewitt MD [address] [place] [address] 36 [place], [place] [address] Gastroenterology 09/06/22 Heather Mosquera MD [address] 150 [place] [address] Internal Medicine 09/06/22 Paula Reza MD [address] 200 [place] [address] Assigned PCP 09/09/22 01/05/23 Esha Dewitt MD 420 [facility] 36 [place], [place] [address] Assigned Gastroenterology Provider 09/23/22 Valdo Escamilla PA-C [address] [facility] [address] [place], [place] [address] Assigned Neuroscience Provider 09/30/22 Nohelia Abarca PA-C [address]50 [facility] [place], [place] [address] Physician Circular Knitter Helper Gastroenterology 10/03/22 Heather Mosquera MD 6545 [facility] 150 [place], [place] [address] Assigned PCP 01/06/23 Fawad York MD [address] [place], [place] [address] Assigned Musculoskeletal Provider 04/27/23 06/25/23 documented as of this encounter
--- OUTSIDE RECORDS SUMMARY | 2023-10-02 15:44 | XMS_ITS | Encounter Summary ---
Author Organization [place] Address [address] [place] [address] Care Team Providers Care Distributor Publications Name Role Phone Roopa Almonte MD Unavailable [phone] Maryse Burton PA-C Unavailable [phone] Roopa Almonte MD Unavailable [phone] Griffin Joshi MD Unavailable Paula Reza MD Primary Care Provider [phone] Roopa Almonte MD Unavailable [phone] Augustine Callaway MD Unavailable Daylin Ludwig Unavailable Daylin Ludwig Unavailable [phone] Marilin Montaño STATE SUPERINTENDENT OF SCHOOLS Unavailable [phone] Esha Dewitt MD Unavailable [phone] Heather Mosquera MD Unavailable [phone] Paula Reza MD Unavailable Esha Dewitt MD Unavailable [phone] Valdo EscamillaC Unavailable [phone] Nohelia Abarca PA-C Unavailable [phone] Heather Moqsuera MD Unavailable [phone] Fawad York MD Unavailable Encounter Details Date Type Department Care Team (Late st Contact Info) Description 10/04/2022 MyC Medical Advice [facility] [address] 4th [place] [address] Jennifer Mast MA Social History [...] to Optimize Self-Care Behaviors 90%(03/23/19 3:12 PM MEDICATION AIDE) Angelita Diaz RD Note: I will check [...] documented as of this encounter Care Teams Distributor Publications Relationship Specialty Start Date End Date Paula Reza MD [address] [address] PCP - General Internal Medicine 08/05/21 Roopa Almonte MD [address] [facility] 200 [place] [address] Endocrinology, Diabetes, and Metabolism 01/19/21 Maryse Burton PAAna MariaC [address] [place], [place] [address] Physician Inspector Bicycle Dermatology 04/14/21 Roopa Almonte MD [address] [facility] 200 [place] [address] Hospitalist Endocrinology, Diabetes, and Metabolism 05/30/21 Griffin Joshi MD [address] [facility] [address] [place] [address] Cardiovascular Disease 07/25/21 Roopa Almonte MD [address] [facility] 200 [place], [place] [address] Assigned Endocrinology Provider 09/10/21 [place] [address] [facility] 300 [place] [address] Assigned Musculoskeletal Provider 10/15/21 04/26/23 Daylin Ludwig EP [facility] [address] [address] Cardiac Rehabilitation Therapist 05/16/23 Daylin Ludwig EP [facility] [address] [place] [address] Cardiac Rehabilitation Therapist 06/08/22 06/09/23 Marilin Montaño STATE SUPERINTENDENT OF SCHOOLS [address] [address] Assigned Heart and Vascular Provider 08/05/22 Esha Dewitt MD [address] [facility] 36 [place], [place] [address] MD Gastroenterology 09/06/22 Heather Mosquera MD [address] [place] [address] Internal Medicine 09/06/22 Paula Reza MD [address] [facility] 200 [place], [place] [address] Assigned PCP 09/09/22 01/05/23 Esha Dewitt MD 420 [facility] 36 [place], [place] [address] Assigned Gastroenterology Provider 09/23/22 Valdo Escamilla PA-C [address] [place], [place] [address] Assigned Neuroscience Provider 09/30/22 Nohelia Abarca PA-C [address] [place], [place] [address] Physician Inspector Bicycle Gastroenterology 10/03/22 Heather Mosquera MD [address] [address] Assigned PCP 01/06/23 Fawad York MD 9 [place], [place] [address] Assigned Musculoskeletal Provider 04/27/23 06/25/23 documented as of this encounter
--- OUTSIDE RECORDS SUMMARY | 2023-10-02 15:44 | XMS_ITS | Encounter Summary ---
Author Organization [place] Address [address] [place] [address] Care Team Providers Care Machine Maintenance Servicer Name Role Phone Roopa Almonte MD Unavailable [phone] Maryse Burton PA-C Unavailable [phone] Roopa Almonte MD Unavailable [phone] Griffin Joshi MD Unavailable Rina Magallon RN Unavailable [phone] Paula Reza MD Primary Care Provider [phone] Roopa Almonte MD Unavailable [phone] Rosa Maria Love Unavailable [phone] Augustine Callaway MD Unavailable Porsha Michaels APRN CHECKER LOADER Unavailable [phone] Shahida Sutton APRN CHECKER LOADER Unavailable Un available Daylin Ludwig Unavailable [phone] Laurel Velasquez MD Unavailable [phone] Daylin Ludwig Unavailable [phone] Paula Reza MD Unavailable Porsha Michales APRN CHECKER LOADER Unavailable [phone] RonArelyyemi Sands MD Unavailable [phone] Shahida Sutton APRN CHECKER LOADER Unavailable Un available Marilin Montaño CHECKER LOADER Unavailable Esha Dewitt MD Unavailable [phone] EvelineHeather pastrana MD Unavailable Paula Reza MD Unavailable Esha Dewitt MD Unavailable [phone] Valdo Escamilla PA-C Unavailable Nohelia Abarca-C Unavailable [phone] Heather Mosquera MD Unavailable Fawad York MD Unavailable Encounter Details Date Type Department Care Team (Late st Contact Info) Description 04/18/2022 [facility] Medical Advice [address] [place] [address] Sonia Neal, RN Social History [...] Coronavirus/COVID-19? No / Unsure 04/12/2022 3:43 PM ANIMAL CYTOLOGIST documented as of this encounter Plan of [...] to Optimize Self-Care Behaviors Angeilta Diaz RD Monitoring - monitor glucose and ketones as directed Care Plan Diabetes Self-Management Education Needed to Optimize Self-Care Behaviors 90%(03/23/19 3:12 PM ANIMAL CYTOLOGIST) Angelita Diaz RD Note: I will check [...] as of this encounter Care Teams Machine Maintenance Servicer Relationship Specialty Start Date End Date Paula Reza MD [address] [place], [place] [address] PCP - General Internal Medicine 08/05/21 Roopa Almonte MD [address] [facility] 200 [place] [address] Endocrinology, Diabetes, and Metabolism 01/19/21 Maryse Burton, PAAna MariaC 5200 [place] [address] Physician Supervisor Mechanic Boilermaking Dermatology 04/14/21 Roopa Almonte MD [address] [facility] 200 [place] [address] Hospitalist Endocrinology, Diabetes, and Metabolism 05/30/21 Griffin Joshi MD [address] [facility] [address] [place] [address] Cardiovascular Disease 07/25/21 Rina Magallon, RN Lead Sizer Hand 07/29/21 07/11/22 Roopa Almonte MD [address] [facility] 200 [place] [address] Assigned Endocrinology Provider 09/10/21 Kate Rosa Maria, CHW Community Health Worker 10/06/21 07/11/22 [place] [address] [facility] 300 [place] [address] Assigned Musculoskeletal Provider 10/15/21 04/26/23 Porsha Michaels APRN CHECKER LOADER [address] [address] Assigned Heart and Vascular Provider 02/11/22 05/12/22 Shahida Sutton APRN CHECKER LOADER [address] [address] Assigned PCP 04/08/22 06/30/22 Daylin Ludwig EP [facility] [address] [address] Cardiac Rehabilitation Therapist 05/16/23 Laurel Velasquez MD [address] [address] Assigned Heart and Vascular Provider 05/13/22 06/30/22 Daylin Ludwig EP [facility] [address] [address] Cardiac Rehabilitation Therapist 06/08/22 06/09/23 Paula Reza MD [address] [place] [address] Assigned PCP 07/01/22 07/07/22 Porsha Michaels APRN CHECKER LOADER [address] [place] [address] Assigned Heart and Vascular Provider 07/01/22 07/07/22 Laurel Velasquez MD [address] [place] [address] Assigned Heart and Vascular Provider 07/08/22 08/04/22 Shahida Sutton APRN CHECKER LOADER Assigned PCP 07/08/22 09/08/22 Marilin Montaño CHECKER LOADER [address] [place] [address] Assigned Heart and Vascular Provider 08/05/22 Esha Dewitt MD [address] [place] [address] Gastroenterology 09/06/22 Heather Mosquera MD [address] [place] [address] Internal Medicine 09/06/22 Paula Reza MD [address] [place], [place] [address] Assigned PCP 09/09/22 01/05/23 Esha Dewitt MD [address] [place] [address] Assigned Gastroenterology Provider 09/23/22 Valdo Escamilla PA-C [address] [facility] 103 [place] [address] Assigned Neuroscience Provider 09/30/22 Nohelia Abarca PA-C [address]50 [place], [place] [address] Physician Supervisor Mechanic Boilermaking Gastroenterology 10/03/22 Heather Mosquera MD 6545 [facility] 150 [place], [place] [address] Assigned PCP 01/06/23 Fawad York MD 909 [place], [place] [address] Assigned Musculoskeletal Provider 04/27/23 06/25/23 documented as of this encounter
--- OUTSIDE RECORDS SUMMARY | 2023-10-02 15:44 | XMS_ITS | Encounter Summary ---
Author Organization [place] Address [address] [place] [address] Care Team Providers Care Senior Business Consultant Name Role Phone Roopa Almonte MD Unavailable [phone] Maryse Burton PA-C Unavailable Roopa Almonte MD Unavailable [phone] Griffin Joshi MD Unavailable Paula Reza MD Primary Care Provider [phone] Roopa Almonte MD Unavailable [phone] Augustine Callaway MD Unavailable Daylin Ludwig EP Unavailable Daylin Ludwig EP Unavailable [phone] Shahida Sutton APRN MILL LABOR SUPERVISOR Unavailable Un available Marilin Montaño MILL LABOR SUPERVISOR Unavailable [phone] Esha Dewitt MD Unavailable [phone] Heather Mosquera MD Unavailable [phone] Paula Reza MD Unavailable Esha Dewitt MD Unavailable Valdo Escamilla PA-C Unavailable [phone] Nohelia Abarca-C Unavailable [phone] Heather Moqsuera MD Unavailable Fawad York MD Unavailable [phone] Encounter Details Date Type Department Care Team (Late st Contact Info) Description 08/23/2022 MyC Medical Advice [facility] [address] [facility] [address] [place] [address] Carmen Prince, INFECTIOUS DISEASE TECHNICIAN Social History Tobacco Use Types Packs/Day [...] to Optimize Self-Care Behaviors 90%(03/23/19 3:12 PM MATERIALS BRANCH CHIEF) Angelita Diaz RD Note: I will check [...] as of this encounter Care Teams Senior Business Consultant Relationship Specialty Start Date End Date Paula Reza MD [address] [facility] 200 [place] [address] PCP - General Internal Medicine 08/05/21 Roopa Almonte MD [address] [address] Endocrinology, Diabetes, and Metabolism 01/19/21 Maryse Burton, PA-C 5200 [place] [address] Physician Recruitment Intern Dermatology 04/14/21 Roopa Almonte MD [address] [address] Hospitalist Endocrinology, Diabetes, and Metabolism 05/30/21 Griffin Joshi MD [address] [facility] [address] [place] [address] Cardiovascular Disease 07/25/21 Roopa Almonte MD [address] 200 [place], [place] [address] Assigned Endocrinology Provider 09/10/21 [place] [address] [facility] 300 [place] [address] Assigned Musculoskeletal Provider 10/15/21 04/26/23 Daylin Ludwig EP [facility] [address] [address] Cardiac Rehabilitation Therapist 05/16/23 Daylin Ludwig EP [facility] [address] [place] [address] Cardiac Rehabilitation Therapist 06/08/22 06/09/23 Shahida Sutton, DUANE MILL LABOR SUPERVISOR Assigned PCP 07/08/22 09/08/22 Marilin Montaño, MILL LABOR SUPERVISOR [address] [place], [place] [address] Assigned Heart and Vascular Provider 08/05/22 Esha Dewitt MD 420 [facility] 36 [place], [place] [address] MD Gastroenterology 09/06/22 Heather Mosquera MD [address] [place] [address] Internal Medicine 09/06/22 Paula Reza MD 303 [address] [facility] 200 [place], [place] [address] Assigned PCP 09/09/22 01/05/23 Esha Dewitt MD 420 [facility] 36 [place], [place] [address] Assigned Gastroenterology Provider 09/23/22 Valdo Escamilla PA-C [address] [place] [address] Assigned Neuroscience Provider 09/30/22 Nohelia Abarca PA-C 2450 [place] [address] Physician Recruitment Intern Gastroenterology 10/03/22 Heather Mosquera MD 6545 [facility] 150 [place], [place] [address] Assigned PCP 01/06/23 Fawad York MD 909 [place], [place] [address] Assigned Musculoskeletal Provider 04/27/23 06/25/23 documented as of this encounter
--- OUTSIDE RECORDS SUMMARY | 2023-10-02 15:44 | XMS_ITS | Encounter Summary ---
Author Organization [place] Address [address] [place] [address] Care Team Providers Care Historian Research Assistant Name Role Phone Roopa Almonte MD Unavailable [phone] Maryse Burton PA-C Unavailable [phone] Roopa Almonte MD Unavailable [phone] Griffin Joshi MD Unavailable Rina Magallon RN Unavailable [phone] Paula Reza MD Primary Care Provider [phone] Roopa Almonte MD Unavailable [phone] Rosa Maria Love Unavailable [phone] Augustine Callaway MD Unavailable Shahida Sutton APRN PET CARE ASSISTANT Unavailable Un available Porsha Michaels APRN PET CARE ASSISTANT Unavailable [phone] Paula Reza MD Unavailable Shahida Sutton APRN PET CARE ASSISTANT Unavailable Un available Daylin Ludwig Unavailable [phone] Laurel Velasquez MD Unavailable [phone] Daylin Ludwig Unavailable [phone] Paula Reza MD Unavailable Porsha Michaels APRN PET CARE ASSISTANT Unavailable [phone] Laurel Velasquez MD Unavailable [phone] HermanIndu huertaprincess Cummings WIRE COATING OPERATOR METAL PET CARE ASSISTANT Unavailable Un available Marilin Montaño PET CARE ASSISTANT Unavailable [phone] Esha Dewitt MD Unavailable [phone] Heather Mosquera MD Unavailable [phone] Paula Reza MD Unavailable Esha Dewitt MD Unavailable [phone] Valdo Escamilla PA-C Unavailable [phone] Nohelia Abarca PA-C Unavailable [phone] Heather Mosquera MD Unavailable [phone] Fawad York MD Unavailable [phone] Encounter Details Date Type Department Care Team (Late st Contact Info) Description 03/13/2022 MyC Medical Advice [facility] [address] [address] Fawad York MD [address] [place] [address] Social History Tobacco Use Types Packs/Day [...] Coronavirus/COVID-19? No / Unsure 02/21/2022 12:25 PM CALENDER RUNNER documented as of this encounter Plan of [...] to Optimize Self-Care Behaviors 90%(03/23/19 3:12 PM CALENDER RUNNER) Angelita Diaz RD Note: I will check [...] documented as of this encounter Care Teams Historian Research Assistant Relationship Specialty Start Date End Date Paula Reza MD [address] [address] PCP - General Internal Medicine 08/05/21 Roopa Almonte MD [address] [facility] 200 [place], [place] [address] Endocrinology, Diabetes, and Metabolism 01/19/21 Maryse Burton, PAAna MariaC 5200 [place] [address] Physician Paper Cup Machine Tender Dermatology 04/14/21 Roopa Almonte MD [address] [facility] 200 [place], [place] [address] Hospitalist Endocrinology, Diabetes, and Metabolism 05/30/21 Griffin Joshi MD [address] [facility] [address] [place] [address] Cardiovascular Disease 07/25/21 Rina Magallon, RN Lead Firmware Software Verification Engineer 07/29/21 07/11/22 Roopa Almonte MD [address] [facility] 200 [place], [place] [address] Assigned Endocrinology Provider 09/10/21 Rosa Maria Love W Community Health Worker 10/06/21 07/11/22 [place] [address] [facility] 300 [place] [address] Assigned Musculoskeletal Provider 10/15/21 04/26/23 Shahida Sutton APRN PET CARE ASSISTANT Assigned PCP 12/24/21 03/24/22 Porsha Michaels APRN PET CARE ASSISTANT [address] [address] Assigned Heart and Vascular Provider 02/11/22 05/12/22 Paula Reza MD [address] [place] [address] Assigned PCP 03/25/22 04/07/22 Shahida Sutton APRN PET CARE ASSISTANT [address] [place] [address] Assigned PCP 04/08/22 06/30/22 Daylin Ludwig EP [facility] [address] [address] Cardiac Rehabilitation Therapist 05/16/23 Laurel Velasquez MD [address] [address] Assigned Heart and Vascular Provider 05/13/22 06/30/22 Daylin Ludwig EP [facility] [address] [address] Cardiac Rehabilitation Therapist 06/08/22 06/09/23 Paula Reza MD [address] E [facility] 200 [place], [place] [address] Assigned PCP 07/01/22 07/07/22 Porsha Michaels APRN PET CARE ASSISTANT [address] [address] Assigned Heart and Vascular Provider 07/01/22 07/07/22 Laurel Velasquez MD [address] [place] [address] Assigned Heart and Vascular Provider 07/08/22 08/04/22 Shahida Sutton APRN PET CARE ASSISTANT Assigned PCP 07/08/22 09/08/22 Marilin Montaño, PET CARE ASSISTANT [address] [place] [address] Assigned Heart and Vascular Provider 08/05/22 Esha Dewitt MD [address] [place] [address] 36 [place], [place] [address] Gastroenterology 09/06/22 Heather Mosqeura MD [address] [place] [address] Internal Medicine 09/06/22 Paula Reza MD [address] [place] [address] Assigned PCP 09/09/22 01/05/23 Esha Dewitt MD 420 [facility] 36 [place], [place] [address] Assigned Gastroenterology Provider 09/23/22 Valdo Escamilla PA-C [address] [facility] [address] [place], [place] [address] Assigned Neuroscience Provider 09/30/22 Nohelia Abarca PA-C 2450 [place], [place] [address] Physician Paper Cup Machine Tender Gastroenterology 10/03/22 Heather Mosquera MD [address] [place] [address] Assigned PCP 01/06/23 Fawad York MD 909 [place], [place] [address] Assigned Musculoskeletal Provider 04/27/23 06/25/23 documented as of this encounter
--- OUTSIDE RECORDS SUMMARY | 2023-10-02 15:44 | XMS_ITS | Encounter Summary ---
Author Organization [facility] Address [address] [place] [address] Care Team Providers Care Osd Clerk Name Role Phone Roopa Almonte MD Unavailable [phone] Maryse Burton PA-C Unavailable Roopa Almonte MD Unavailable [phone] Griffin Joshi MD Unavailable Paula Rzea MD Primary Care Provider [phone] Roopa Almonte MD Unavailable [phone] Augustine Callaway MD Unavailable Daylin Ludwig Unavailable Daylin Ludwig Unavailable [phone] Marilin Montaño COOK'S ASSISTANT Unavailable [phone] Esha Dewitt MD Unavailable [phone] Heather Mosquera MD Unavailable [phone] Paula Reza MD Unavailable Esha Dewitt MD Unavailable [phone] Valdo EscamillaC Unavailable [phone] Nohelia Abarca PA-C Unavailable [phone] Heather Mosquera MD Unavailable Fawad York MD Unavailable Encounter Details Date Type Department Care Team (Late st Contact Info) Description 09/13/2022 MyC Medical Advice [facility] [place] [address] [facility] [address] 4th [place] [address] Esha Dewitt MD 420 [facility] 36 [place] [address] Social History Tobacco Use Types [...] to Optimize Self-Care Behaviors 90%(03/23/19 3:12 PM COLLAR TURNER OPERATOR) Angelita Diaz RD Note: I will [...] documented as of this encounter Care Teams Osd Clerk Relationship Specialty Start Date End Date Paula Reza MD [address] [facility] 200 [place] [address] PCP - General Internal Medicine 08/05/21 Roopa Almonte MD [address] [facility] 200 [place] [address] Endocrinology, Diabetes, and Metabolism 01/19/21 Maryse Burton, PAAna MariaC 5200 [place] [address] Physician Mainspring Former [facility] Dermatology 04/14/21 Roopa Almonte MD [address] [facility] 200 [place] [address] Hospitalist Endocrinology, Diabetes, and Metabolism 05/30/21 Griffin Joshi MD 6405 [facility] [address] [place] [address] Cardiovascular Disease 07/25/21 Roopa Almonte MD [address] [facility] 200 [place], [place] [address] Assigned Endocrinology Provider 09/10/21 [place] [address] [facility] 300 [place] [address] Assigned Musculoskeletal Provider 10/15/21 04/26/23 Daylin Ludwig EP [facility] [address] [place] [address] Cardiac Rehabilitation Therapist 05/16/23 Daylin Ludwig EP [facility] [address] [place] [address] Cardiac Rehabilitation Therapist 06/08/22 06/09/23 Marilin Montaño, COOK'S ASSISTANT [address] [place] [address] Assigned Heart and Vascular Provider 08/05/22 Esha Dewitt MD 420 [facility] 36 [place], [place] [address] Gastroenterology 09/06/22 Heather Mosquera MD [address] [place], [place] [address] Internal Medicine 09/06/22 Paula Reza MD 303 E [facility] 200 [place], [place] [address]07 Assigned PCP 09/09/22 01/05/23 Esha Dewitt MD 420 [facility] 36 [place], [place] [address] Assigned Gastroenterology Provider 09/23/22 Valdo Escamilla PA-C [address] [place] [address] Assigned Neuroscience Provider 09/30/22 Nohelia Abarca PA-C 2450 [place] [address] Physician Mainspring Former [facility] G[facility]ology 10/03/22 Heather Mosquera MD 6545 [facility] 150 [place] [address] Assigned PCP 01/06/23 Fawad York MD 909 [place] [address] Assigned Musculoskeletal Provider 04/27/23 06/25/23 documented as of this encounter"
--- OUTSIDE RECORDS SUMMARY | 2023-10-02 15:44 | XMS_ITS | Encounter Summary ---
Author Organization [facility] Address [address] [place] [address] Care Team Providers Care Sustainable Agriculture Specialist Name Role Phone Roopa Almonte MD Unavailable [phone] Maryse Burton PA-C Unavailable [phone] Roopa Almonte MD Unavailable [phone] Griffin Joshi MD Unavailable Rina Magallon RN Unavailable [phone] Paula Reza MD Primary Care Provider [phone] Roopa Almonte MD Unavailable [phone] Rosa Maria Love Unavailable [phone] Augustine Callaway MD Unavailable Shahida Sutton APRN CASCARA BARK CUTTER Unavailable Un available Porsha Michaels APRN CASCARA BARK CUTTER Unavailable [phone] Paula Reza MD Unavailable Shahida Sutton APRN CASCARA BARK CUTTER Unavailable Un available Daylin Ludwig Unavailable [phone] Laurel Velasquez MD Unavailable [phone] Daylin Ludwig Unavailable [phone] Paula Reza MD Unavailable Porsha Michaels APRN CASCARA BARK CUTTER Unavailable [phone] Laurel Velasquez MD Unavailable [phone] Shahida Sutton TRUCK DISPATCHER CASCARA BARK CUTTER Unavailable Un available Marilin Montaño CASCARA BARK CUTTER Unavailable [phone] Esha Dewitt MD Unavailable [phone] Heather Mosquera MD Unavailable [phone] Paula Reza MD Unavailable Esha Dewitt MD Unavailable [phone] Valdo Escamilla PA-C Unavailable [phone] Nohelia Abarca PA-C Unavailable [phone] Heather Mosquera MD Unavailable [phone] Fawad York MD Unavailable [phone] Reason for Visit * Reason Onset Date Comments Refill Request 03/01/2022 zolpidem ER (AMB IEN CR) 12.5 MG CR tablet Encounter Details Date Type Department Care Team (Late st Contact Info) Description 03/01/[address] [place] [address] Paula Reza MD [address] [facility] 200 [place] [address] Refill Request (zolpidem ER (AMBIEN [...] Coronavirus/COVID-19? No / Unsure 02/21/2022 12:25 PM LICENSE ISSUER documented as of this encounter Miscellaneous Notes * Telephone Encounter - Shayla Callahan RN - 03/02/2022 1:14 PM CST Routing refill request to provider for review/approval because: Drug not on the [facility] refill protocol Shayla Callahan RN, BSN NSE ISSUER documented in this encounter Plan of Treatment [...] Optimize Self-Care Behaviors 90%(03/23/19 23 3:12 PM LICENSE ISSUER) Angelita Diaz RD Note: I will check [...] documented as of this encounter Care Teams Sustainable Agriculture Specialist Relationship Specialty Start Date End Date Paula Reza MD [address] 200 [place] [address] PCP - General Internal Medicine 08/05/21 Roopa Almonte MD [address] [facility] 200 [place] [address] Endocrinology, Diabetes, and Metabolism 01/19/21 Maryse Burton PA-C 5200 [place] [address] Physician Machine Heel Builder Dermatology 04/14/21 Roopa Almonte MD [address] [facility] 200 [place], [place] [address] Hospitalist Endocrinology, Diabetes, and Metabolism 05/30/21 Griffin Joshi MD [address] [facility] [address] [place] [address] Cardiovascular Disease 07/25/21 Rina Magallon, RN Lead Esthetician 07/29/21 07/11/22 Roopa Almonte MD [address] [place] [address] 200 [place], [place] [address] Assigned Endocrinology Provider 09/10/21 Rosa Maria Love CHW Community Health Worker 10/06/21 07/11/22 [place] [address] [facility] 300 [place], [place] [address] Assigned Musculoskeletal Provider 10/15/21 04/26/23 Shahida Sutton APRN CASCARA BARK CUTTER Assigned PCP 12/24/21 03/24/22 Porsha Michaels APRN CASCARA BARK CUTTER [address] [place] [address] Assigned Heart and Vascular Provider 02/11/22 05/12/22 Paula Reza MD [address] [place] [address] Assigned PCP 03/25/22 04/07/22 Shahida Sutton APRN CASCARA BARK CUTTER [address] 200 [place] [address] Assigned PCP 04/08/22 06/30/22 Daylin Ludwig, MIKI [facility] [address] [place] [address] Cardiac Rehabilitation Therapist 05/16/23 Laurel Velasquez MD [address] [place] [address] Assigned Heart and Vascular Provider 05/13/22 06/30/22 Daylin Ludwig, MIKI [facility] [address] [place] [address] Cardiac Rehabilitation Therapist 06/08/22 06/09/23 Paula Reza MD [address] 200 [place] [address] Assigned PCP 07/01/22 07/07/22 Porsha Michaels APRN CASCARA BARK CUTTER [address] [place] [address] Assigned Heart and Vascular Provider 07/01/22 07/07/22 Laurel Velasquez MD [address] [place] [address] Assigned Heart and Vascular Provider 07/08/22 08/04/22 Shahida Sutton APRN CASCARA BARK CUTTER Assigned PCP 07/08/22 09/08/22 Marilin Montaño, PAULA [address] [place] [address] Assigned Heart and Vascular Provider 08/05/22 Esha Dewitt MD 420 [facility] 36 [place] [address] MD Gastroenterology 09/06/22 Heather Mosquera MD [address] [place] [address] Internal Medicine 09/06/22 Paula Reza MD 303 E [facility] 200 [place] [address] Assigned PCP 09/09/22 01/05/23 Esha Dewitt MD 420 [facility] 36 [place] [address] Assigned Gastroenterology Provider 09/23/22 Valdo Escamilla PA-C [address] [facility] [address] [address] [place] [id number] Assigned Neuroscience Provider 09/30/22 Nohelia Abarca PA-C [address] [facility] [place] [place] [address] Physician Machine Heel Builder Gastroenterology 10/03/22 Heather Mosquera MD [address] [place] [address] Assigned PCP 01/06/23 Fawad York MD [address] [place] [address] Assigned Musculoskeletal Provider 04/27/23 06/25/23 documented as of this encounter
--- OUTSIDE RECORDS SUMMARY | 2023-10-02 15:44 | XMS_ITS | Encounter Summary ---
Author Organization [facility] Address [address] [place] [address] Care Team Providers Care Principal Clerk Typist Name Role Phone Roopa Almonte MD Unavailable [phone] Maryse Burton PA-C Unavailable Roopa Almonte MD Unavailable [phone] Griffin Joshi MD Unavailable Paula Reza MD Primary Care Provider [phone] Roopa Almonte MD Unavailable [phone] Augustine Callaway MD Unavailable Daylin Ludwig EP Unavailable Daylin Ludwig EP Unavailable [phone] Shahida Sutton APRN IN HOUSE COUNSEL Unavailable Un available Marilin Montaño IN HOUSE COUNSEL Unavailable [phone] Esha Dewitt MD Unavailable [phone] Heather Mosquera MD Unavailable [phone] Paula Reza MD Unavailable Esha Dewitt MD Unavailable [phone] Valdo Escamilla PA-C Unavailable [phone] Nohelia Abarca PA-C Unavailable [phone] Heather Mosquera MD Unavailable Fawad York MD Unavailable Reason for Visit * Reason Onset Date Comments Appointment 08/25/2022 Reschedule Surge ry Encounter Details Date Type Department Care Team (Late st Contact Info) Description 08/25/2022 Telephone [facility] [place] [address] [facility] [address] [place] [address] Kim Romo MD 0[address] [facility] [address] [place] [address] Appointment (Reschedule Surgery) [...] Optimize Self-Care Behaviors 90%(03/23/19 23 3:12 PM FLIGHT SERVICE SPECIALIST) Angelita Diaz RD Note: I will [...] documented as of this encounter Care Teams Principal Clerk Typist Relationship Specialty Start Date End Date Paula Reza MD [address] [address] PCP - General Internal Medicine 08/05/21 Roopa Almonte MD [address] [address] Endocrinology, Diabetes, and Metabolism 01/19/21 Maryse Burton, PA-C 5200 [place] [address] Physician Shingle Shearing 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 Dermatology 04/14/21 Roopa Almonte MD [address] [facility] 200 [place] [address] Hospitalist Endocrinology, Diabetes, and Metabolism 05/30/21 Griffin Joshi MD 6405 [facility] [address] [place] [address] Cardiovascular Disease 07/25/21 Roopa Almonte MD [address] [facility] 200 [place] [address] Assigned Endocrinology Provider 09/10/21 [place] [address] [facility] 300 [place] [address] Assigned Musculoskeletal Provider 10/15/21 04/26/23 Daylin Ludwig EP [facility] [address] [place] [address] Cardiac Rehabilitation Therapist 05/16/23 Daylin Ludwig EP [facility] [address] [place] [address] Cardiac Rehabilitation Therapist 06/08/22 06/09/23 Shahida Sutton APRN IN HOUSE COUNSEL Assigned PCP 07/08/22 09/08/22 Marilin Montaño CNP [address] [place] [address] Assigned Heart and Vascular Provider 08/05/22 Esha Dewitt MD 420 [facility] 36 [place] [address] MD Gastroenterology 09/06/22 Heather Mosquera MD [address] [place], [place] [address] Internal Medicine 09/06/22 Paula Reza MD 303 E [facility] 200 [place], [place] [address] Assigned PCP 09/09/22 01/05/23 Esha Dewitt MD 420 [facility] 36 [place], [place] [address] Assigned Gastroenterology Provider 09/23/22 Valdo Escamilla PA-C [address] [facility] [address] [place], [place] [address] Assigned Neuroscience Provider 09/30/22 Nohelia Abarca PA-C 2450 [facility] [place], [place] [address] Physician Shingle Shearing 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 Gastroenterology 10/03/22 Heather Mosquera MD [address] [place], [place] [address] Assigned PCP 01/06/23 Fawad York MD 909 [place], [place] [address] Assigned Musculoskeletal Provider 04/27/23 06/25/23 documented as of this encounter
--- OUTSIDE RECORDS SUMMARY | 2023-10-02 15:44 | XMS_ITS | Encounter Summary ---
Author Organization [facility] Address [address] [place] [address] Care Team Providers Care Security Expert Name Role Phone Roopa Almonte MD Unavailable [phone] Maryse Burton PA-C Unavailable Roopa Almonte MD Unavailable [phone] Griffin Joshi MD Unavailable Paula Reza MD Primary Care Provider [phone] Roopa Almonte MD Unavailable [phone] Augustine Callaway MD Unavailable Daylin Ludwig Unavailable Daylin Ludwig Unavailable [phone] Marilin Montaño CIRCULAR HEAD SAW OPERATOR Unavailable [phone] Esha Dewitt MD Unavailable [phone] Heather Mosquera MD Unavailable [phone] Paula Reza MD Unavailable Esha Dewitt MD Unavailable [phone] Valdo EscamillaC Unavailable [phone] Nohelia Abarca PA-C Unavailable Heather Mosquera MD Unavailable [phone] Fawad York MD Unavailable Encounter Details Date Type Department Care Team (Late st Contact Info) Description 10/05/2022 MyC Medical Advice [facility] [address] 4th [place] [address] Amy De La Cruz Social [...] Optimize Self-Care Behaviors 90%(03/23/19 3:12 PM RETAIL MORTGAGE BANKER) Angelita Diaz RD Note: I will check [...] documented as of this encounter Care Teams Security Expert Relationship Specialty Start Date End Date Paula Reza MD [address] [facility] 200 [place], [place] [address] PCP - General Internal Medicine 08/05/21 Roopa Almonte MD [address] [facility] 200 [place] [address] Endocrinology, Diabetes, and Metabolism 01/19/21 Maryse Burton PA-C 5200 [place] [address] Physician Orthopedic Shoe Maker Dermatology 04/14/21 Roopa Almonte MD [address] [facility] 200 [place] [address] Hospitalist Endocrinology, Diabetes, and Metabolism 05/30/21 Griffin Joshi MD [address] [facility] [address] [place] [address] Cardiovascular Disease 07/25/21 Roopa Almonte MD [address] [place] [address] 200 [place], [place] [address] Assigned Endocrinology Provider 09/10/21 [place] [address] [facility] 300 [place] [address] Assigned Musculoskeletal Provider 10/15/21 04/26/23 Daylin Ludwig EP [facility] [address] [place] [address] Cardiac Rehabilitation Therapist 05/16/23 Daylin Ludwig EP [facility] [address] [place] [address] Cardiac Rehabilitation Therapist 06/08/22 06/09/23 Marilin Montaño CIRCULAR HEAD SAW OPERATOR [address] [place] [address] Assigned Heart and Vascular Provider 08/05/22 Esha Dewitt MD [address] 4[address] MD Gastroenterology 09/06/22 Heather Mosquera MD [address] [facility] [facility] 150 [place], [place] [address] Internal Medicine 09/06/22 Paula Reza MD 303 E [facility] 200 [place], [place] [address] Assigned PCP 09/09/22 01/05/23 Esha Dewitt MD [address] [address] Assigned Gastroenterology Provider 09/23/22 Valdo Escamilla PA-C [address] [facility] [address] [place], [place] [address] Assigned Neuroscience Provider 09/30/22 Nohelia Abarca PA-C [address] [place], [place] [address] Physician Orthopedic Shoe Maker Gastroenterology 10/03/22 Heather Mosquera MD [address] [address] Assigned PCP 01/06/23 Fawad York MD 9 [place], [place] [address] Assigned Musculoskeletal Provider 04/27/23 06/25/23 documented as of this encounter
--- OUTSIDE RECORDS SUMMARY | 2023-10-02 15:45 | XMS_ITS | Encounter Summary ---
Author Organization [facility] Address [address] [place] [address] Care Team Providers Care Drip Molder Name Role Phone Shahida Sutton APRN LACQUER SPRAYER Unavailable Un available Roopa Almonte MD Unavailable [phone] Maryse Burton PA-C Unavailable Roopa Almonte MD Unavailable [phone] Griffin Joshi MD Unavailable Rina Magallon RN Unavailable [phone] Paula Reza MD Primary Care Provider [phone] Griffin Joshi MD Unavailable Roopa Almonte MD Unavailable [phone] Basilio Morillo DO Unavailable Lydia BernsteinC Unavailable Rosa Maria Love Unavailable [phone] Augustine Callaway MD Unavailable Paula Reza MD Unavailable Keerthi Miner APRN LACQUER SPRAYER Unavailable [phone] Herman, Shahida Cummings APRN LACQUER SPRAYER Unavailable Un available Porsha Michaels APRN LACQUER SPRAYER Unavailable Paula Reza MD Unavailable Herman, Shahida Cummings APRN LACQUER SPRAYER Unavailable Un available Daylin Ludwig Unavailable Laurel Velasquez MD Unavailable Daylin Ludwig Unavailable Paula Reza MD Unavailable Porsha Michaels APRN LACQUER SPRAYER Unavailable Laurel Velasquez MD Unavailable Herman, Shahida Cummings REFERRAL NURSE LACQUER SPRAYER Unavailable Un available Marilin Montaño LACQUER SPRAYER Unavailable Esha Dewitt MD Unavailable [phone] Heather Mosquera MD Unavailable Paula Reza MD Unavailable Esha Dewitt MD Unavailable [phone] Valdo Escamilla PA-C Unavailable Nohelia Abarca PA-C Unavailable [phone] Heather Mosquera MD Unavailable Fawad York MD Unavailable Encounter Details Date Type Department Care Team (Late st Contact Info) Description 09/29/2021 MyC Medical Advice [facility] [place] [address] [facility] [address] [place] [address] [place] [address] [facility] [place] [address] Social History Tobacco Use Types Packs/Day Years [...] documented as of this encounter Care Teams Drip Molder Relationship Specialty Start Date End Date Paula Reza MD [address] [address] PCP - General Internal Medicine 08/05/21 Shahida Sutton APRN LACQUER SPRAYER Assigned PCP 07/12/14 09/30/21 Roopa Almonte MD [address] [facility] 200 [place] [address] Endocrinology, Diabetes, and Metabolism 01/19/21 Maryse Burton, HUYC 5200 [place] [address] Physician Financial Administrator Dermatology 04/14/21 Roopa Almonte MD [address] [facility] 200 [place] [address] Hospitalist Endocrinology, Diabetes, and Metabolism 05/30/21 Griffin Joshi MD [address] [facility] [address] [place], [place] [address] Cardiovascular Disease 07/25/21 Rina Magallon, RN Lead Senior Ecologist 07/29/21 07/11/22 Griffin Joshi MD [address] [place] [address] Assigned Heart and Vascular Provider 08/06/21 10/07/21 Roopa Almonte MD [address] [facility] 200 [place], [place] [address] Assigned Endocrinology Provider 09/10/21 [place] [address] [facility] [place] [address]19 Assigned Musculoskeletal Provider 09/17/21 10/14/21 Lydia Bernstein PA-C [address] [place] [address] Assigned PCP 10/01/21 10/21/21 Rosa Maria Love CHW Community Health Worker 10/06/21 07/11/22 [place] [address] [facility] 300 [place] [address] Assigned Musculoskeletal Provider 10/15/21 04/26/23 Paula Reza MD [address] [facility] 200 [place], [place] [address] Assigned PCP 10/22/21 12/23/21 Keerthi Miner APRN LACQUER SPRAYER [address] [place] [address] Assigned Heart and Vascular Provider 10/08/21 02/10/22 Shahida Sutton APRN LACQUER SPRAYER Assigned PCP 12/24/21 03/24/22 Porsha Michaels APRN LACQUER SPRAYER [address] [place] [address] Assigned Heart and Vascular Provider 02/11/22 05/12/22 Paula Reza MD [address] [place] [address] Assigned PCP 03/25/22 04/07/22 Shahida Sutton APRN LACQUER SPRAYER [address] [place] [address] Assigned PCP 04/08/22 06/30/22 Daylin Ludwig, EP [facility] [address] [place] [address] Cardiac Rehabilitation Therapist 05/16/23 Laurel Velasquez MD [address] [place] [address] Assigned Heart and Vascular Provider 05/13/22 06/30/22 Daylin Ludwig, EP [facility] [address] [place] [address] Cardiac Rehabilitation Therapist 06/08/22 06/09/23 Paula Reza MD [address] [place] [address] Assigned PCP 07/01/22 07/07/22 Porsha Michaels APRN LACQUER SPRAYER [address] [place] [address] Assigned Heart and Vascular Provider 07/01/22 07/07/22 Laurel Velasquez MD [address] [place] [address] Assigned Heart and Vascular Provider 07/08/22 08/04/22 Shahida Sutton, DUANE LACQUER SPRAYER Assigned PCP 07/08/22 09/08/22 Marilin Montaño, LACQUER SPRAYER [address] [place] [address] Assigned Heart and Vascular Provider 08/05/22 Esha Dewitt MD [address] [address] MD Gastroenterology 09/06/22 Heather Mosquera MD [address] [place] [address] Internal Medicine 09/06/22 Paula Reza MD [address] [facility] 200 [place], [place] [address] Assigned PCP 09/09/22 01/05/23 Esha Dewitt MD [address] [address] Assigned Gastroenterology Provider 09/23/22 Valdo Escamilla PA-C [address] [place] [address] Assigned Neuroscience Provider 09/30/22 Nohelia Abarca PA-C 2450 [place] [address] Physician Financial Administrator Gastroenterology 10/03/22 Heather Mosquera MD 6545 [facility] 150 [place] [address] Assigned PCP 01/06/23 Fawad York MD 909 [place], [place] [address] Assigned Musculoskeletal Provider 04/27/23 06/25/23 documented as of this encounter
--- OUTSIDE RECORDS SUMMARY | 2023-10-02 15:45 | XMS_ITS | Encounter Summary ---
Author Organization [facility] Address [address] [place] [address] Care Team Providers Care Biomedical Scientist Name Role Phone Shahida Suttontim ZEPEDA CNP Unavailable Un available Roopa Almonte MD Unavailable [phone] Augustine Callaway MD Unavailable Maryse Burton PA-C Unavailable Roopa Almonte MD Unavailable [phone] Griffin Joshi MD Unavailable Rina Magallon RN Unavailable [phone] Paula Reza MD Primary Care Provider [phone] Griffin Joshi MD Unavailable Roopa Almonte MD Unavailable [phone] Basilio Morillo DO Unavailable Lydia BernsteinC Unavailable Rosa Maria Love Unavailable [phone] Augustine Callaway MD Unavailable Paula Reza MD Unavailable Keerthi Miner STOCKING INSPECTOR COURT OFFICER Unavailable Herman, Shahida Cummings APRN COURT OFFICER Unavailable Un available Porsha Michaels APRN COURT OFFICER Unavailable [phone] Paula Reza MD Unavailable Herman, Shahida Cummings APRN COURT OFFICER Unavailable Un available Daylin Ludwig Unavailable [phone] Laurel Velasquez MD Unavailable [phone] Daylin Ludwig EP Unavailable [phone] Paula Reza MD Unavailable Porsha Michaels APRN COURT OFFICER Unavailable +[phone] Laurel Velasquez MD Unavailable [phone] Herman, Shahida Cummings APRN COURT OFFICER Unavailable Un available Marilin Montaño COURT OFFICER Unavailable [phone] Esha Dewitt MD Unavailable [phone] Heather Mosquera MD Unavailable [phone] Paula Reza MD Unavailable Esha Dewitt MD Unavailable [phone] Valdo Escamilla PA-C Unavailable + [phone] Nohelia Abarca PA-C Unavailable [phone] Heather Mosquera MD Unavailable [phone] Fawad York MD Unavailable [phone] Encounter Details Date Type Department Care Team (Late st Contact Info) Description 08/09/2021 MyC Medical Advice [facility] [address] [place] [id number] Jessica Lemus RN Social History Tobacco [...] documented as of this encounter Care Teams Biomedical Scientist Relationship Specialty Start Date End Date Paula Reza MD [address] [facility] 200 [place] [address] PCP - General Internal Medicine 08/05/[address] OFFICER Assigned PCP 07/12/14 09/30/21 Roopa Almonte MD [address] [facility] 200 [place] [address] Endocrinology, Diabetes, and Metabolism 01/19/21 [place] [address] [facility] 300 [place] [address] Assigned Musculoskeletal Provider 02/06/21 09/16/21 Maryse Burton PA-C 5200 [place] [address] Physician Environmental Sustainability Manager Dermatology 04/14/21 Roopa Almonte MD [address] [facility] 200 [place] [address] Hospitalist Endocrinology, Diabetes, and Metabolism 05/30/21 Griffin Joshi MD [address] [facility] [address] [place] [address] Cardiovascular Disease 07/25/21 Rina Magallon, RN Lead Appliance Parts Counter Clerk 07/29/21 07/11/22 Griffin Joshi MD [address] [facility] [address] [place] [address] Assigned Heart and Vascular Provider 08/06/21 10/07/21 Roopa Almotne MD [address] [facility] 200 [place], [place] [address] Assigned Endocrinology Provider 09/10/21 [place] [address] [facility] [place] [address]459 Assigned Musculoskeletal Provider 09/17/21 10/14/21 Lydia Bernstein PA-C [address] [place] [address] Assigned PCP 10/01/21 10/21/21 Rosa Maria Love CHW Community Health Worker 10/06/21 07/11/22 [place] [address] [place] [address] Assigned Musculoskeletal Provider 10/15/21 04/26/23 Paula Reza MD [address] 200 [place] [address] Assigned PCP 10/22/21 12/23/[address] OFFICER [address] [place] [address] Assigned Heart and Vascular Provider 10/08/21 02/10/[address] OFFICER Assigned PCP 12/24/21 03/24/[address] OFFICER [address] [place] [address] Assigned Heart and Vascular Provider 02/11/22 05/12/22 Paula Reza MD [address] 200 [place] [address] Assigned PCP 03/25/22 04/07/[address] OFFICER [address] [place] [address] Assigned PCP 04/08/22 06/30/22 Daylin Ludwig, MIKI [facility] [address] [place] [address] Cardiac Rehabilitation Therapist 05/16/23 Laurel Velasquez MD [address] [place] [address] Assigned Heart and Vascular Provider 05/13/22 06/30/22 Daylin Ludwig, MIKI [facility] [address] [place] [address] Cardiac Rehabilitation Therapist 06/08/22 06/09/23 Paula Reza MD [address] 852947 Assigned PCP 07/01/22 07/07/[address] OFFICER [address] [place] [address] Assigned Heart and Vascular Provider 07/01/22 07/07/22 Laurel Velasquez MD [address] [place] [address] Assigned Heart and Vascular Provider 07/08/22 08/04/22 Shahida Sutton, DUANE COURT OFFICER Assigned PCP 07/08/22 09/08/22 Marilin Montaño, COURT OFFICER [address] [place] [address] Assigned Heart and Vascular Provider 08/05/22 Esha Dewitt MD 420 [facility] 36 [place] [address] Gastroenterology 09/06/22 Heather Mosquera MD [address] 150 [place] [address] Internal Medicine 09/06/22 Paula Reza MD 303 E [facility] 200 [place] [address] Assigned PCP 09/09/22 01/05/23 Esha Dewitt MD [address] [address] Assigned Gastroenterology Provider 09/23/22 Valdo Escamilla PA-C 6363 [facility] [address] 103 [place] [address] Assigned Neuroscience Provider 09/30/22 Nohelia Abarca PA-C 2450 [place] [address] Physician Environmental Sustainability Manager Gastroenterology 10/03/22 Heather Mosquera MD [address] 150 [place], [place] 39[address] Assigned PCP 01/06/23 Fawad York MD 909 [place], [place] 3869[address] Assigned Musculoskeletal Provider 04/27/23 06/25/23 documented as of this encounter
--- OUTSIDE RECORDS SUMMARY | 2023-10-02 15:45 | XMS_ITS | Encounter Summary ---
Author Organization [place] Address [address] [place] [address] Care Team Providers Care Motor Block Mechanic Name Role Phone Shahida Suttontim ZEPEDA CNP Unavailable Un available Roopa Almonte MD Unavailable [phone] Augustine Callaway MD Unavailable Maryse Burton PA-C Unavailable Roopa Almonte MD Unavailable [phone] Griffin Joshi MD Unavailable Rina Magallon RN Unavailable [phone] Paula Reza MD Primary Care Provider [phone] Griffin Joshi MD Unavailable Roopa Almonte MD Unavailable [phone] Basilio Morillo DO Unavailable Lydia BernsteinC Unavailable Rosa Maria Love Unavailable [phone] Augustine Callaway MD Unavailable Paula Reza MD Unavailable Keerthi Miner APRN COMMUTATOR REPAIRER Unavailable [phone] Herman, Shahida Cummings APRN COMMUTATOR REPAIRER Unavailable Un available Porsha Michaels APRN COMMUTATOR REPAIRER Unavailable +[phone] Paula Reza MD Unavailable Herman, Shahida Cummings APRN COMMUTATOR REPAIRER Unavailable Un available Daylin Ludwig Unavailable [phone] Laurel Velasquez MD Unavailable [phone] Daylin Ludwig Unavailable [phone] Paula Reza MD Unavailable Porsha Michaels APRN COMMUTATOR REPAIRER Unavailable +[phone] Laurel Velasquez MD Unavailable [phone] Herman, Shahida Cummings APRN COMMUTATOR REPAIRER Unavailable Un available Marilin Montaño COMMUTATOR REPAIRER Unavailable [phone] Esha Dewitt MD Unavailable [phone] Heather Mosquera MD Unavailable [phone] Paula Reza MD Unavailable Esha Dewitt MD Unavailable [phone] Valdo Escamilla PA-C Unavailable + [phone] Nohelia Abarca PA-C Unavailable Heather Mosquera MD Unavailable [phone] Fawad York MD Unavailable [phone] Reason for Visit * Reason Comments Medication Refill Encounter Details Date Type Department Care Team (Late st Contact Info) Description 08/17/[address] [phone] Shahida Sutton APRN CNP Medication [...] documented as of this encounter Care Teams Motor Block Mechanic Relationship Specialty Start Date End Date Paula Reza MD [address] [facility] 200 [place] [address] PCP - General Internal Medicine 08/05/21 Shahida Sutton APRN COMMUTATOR REPAIRER Assigned PCP 07/12/14 09/30/21 Roopa Almonte MD [address] [facility] 200 [place] [address] Endocrinology, Diabetes, and Metabolism 01/19/21 [place] [address] [facility] 300 [place] [address] Assigned Musculoskeletal Provider 02/06/21 09/16/21 Maryse Burton PA-C 5200 [place] [address] Physician Pillow Agent Dermatology 04/14/21 Roopa Almonte MD [address] [facility] 200 [place] [address] Hospitalist Endocrinology, Diabetes, and Metabolism 05/30/21 Griffin Joshi MD [address] [facility] [address] [place] [address] Cardiovascular Disease 07/25/21 Rina Magallon, RN Lead Emr Trainer 07/29/21 07/11/22 Griffin Joshi MD [address] [facility] [address] [place] [address] Assigned Heart and Vascular Provider 08/06/21 10/07/21 Roopa Almonte MD [address] [facility] 200 [place], [place] [address] Assigned Endocrinology Provider 09/10/21 [place] [address] [facility] [place] [address] Assigned Musculoskeletal Provider 09/17/21 10/14/21 Lydia Bernstein PA-C [address] [place] [address]25 Assigned PCP 10/01/21 10/21/21 Rosa Maria Love Cristina Community Health Worker 10/06/21 07/11/22 [place] [address] [place] [address] Assigned Musculoskeletal Provider 10/15/21 04/26/23 Paula Reza MD [address] 200 [place] [address] Assigned PCP 10/22/21 12/23/21 Keerthi Miner APRN COMMUTATOR REPAIRER [address] [place] [address] Assigned Heart and Vascular Provider 10/08/21 02/10/22 Shahida Sutton, ORACLE ADF CONSULTANT COMMUTATOR REPAIRER Assigned PCP 12/24/21 03/24/22 Porsha Michaels APRN COMMUTATOR REPAIRER [address] [place] [address] Assigned Heart and Vascular Provider 02/11/22 05/12/22 Paula Reza MD [address] [place] [address] Assigned PCP 03/25/22 04/07/22 Shahida Sutton APRN COMMUTATOR REPAIRER [address] [place] [address] Assigned PCP 04/08/22 06/30/22 Daylin Ludwig, MIKI [facility] [address] [place] [address] Cardiac Rehabilitation Therapist 05/16/23 Laurel Velasquez MD [address] [place] [address] Assigned Heart and Vascular Provider 05/13/22 06/30/22 Daylin Ludwig, MIKI [facility] [address] [place] [address] Cardiac Rehabilitation Therapist 06/08/22 06/09/23 Paula Reza MD 303 E [facility] 200 [place] [address] Assigned PCP 07/01/22 07/07/22 Porsha Michaels APRN COMMUTATOR REPAIRER [address] [place] [address] Assigned Heart and Vascular Provider 07/01/22 07/07/22 Laurel Velasquez MD [address] [place] [address] Assigned Heart and Vascular Provider 07/08/22 08/04/22 Shahida Sutton APRN COMMUTATOR REPAIRER Assigned PCP 07/08/22 09/08/22 Marilin Montaño, COMMUTATOR REPAIRER [address] [place] [address] Assigned Heart and Vascular Provider 08/05/22 Esha Dewitt MD 420 [facility] 36 [place], [place] [address] Gastroenterology 09/06/22 Heather Mosquera MD [address] [place] [address] Internal Medicine 09/06/22 Paula Reza MD 303 [address] [facility] 200 [place], [place] [address] Assigned PCP 09/09/22 01/05/23 Esha Dewitt MD 420 [facility] 36 [place], [place] [address] Assigned Gastroenterology Provider 09/23/22 Valdo Escamilla PA-C [address] [place] [id number] Assigned Neuroscience Provider 09/30/22 Nohelia Abarca PA-C [address] [place] [address] Physician Pillow Agent Gastroenterology 10/03/22 Heather Mosquera MD [address] [place] [address] Assigned PCP 01/06/23 Fawad York MD 909 [place] [address] Assigned Musculoskeletal Provider 04/27/23 06/25/23 documented as of this encounter
--- OUTSIDE RECORDS SUMMARY | 2023-10-02 15:45 | XMS_ITS | Encounter Summary ---
Author Organization [facility] Address [address] [place] [address] Care Team Providers Care House Director Name Role Phone Shahida Suttontim ZEPEDA CNP Unavailable Un available Roopa Almonte MD Unavailable [phone] Augustine Callaway MD Unavailable Maryse Burton PA-C Unavailable Roopa Almonte MD Unavailable [phone] Griffin Joshi MD Unavailable Rina Magallon RN Unavailable [phone] Paula eRza MD Primary Care Provider [phone] Griffin Joshi MD Unavailable Roopa Almonte MD Unavailable [phone] Basilio Morillo DO Unavailable [phone] Lydia BernsteinC Unavailable Rosa Maria Love Unavailable [phone] Augustine Callaway MD Unavailable Paula Reza MD Unavailable Keerthi Miner APRN LEAD ELECTRICIAN Unavailable Herman, Shahida Cummings APRN LEAD ELECTRICIAN Unavailable Un available Porsha Michaels APRN LEAD ELECTRICIAN Unavailable [phone] Paula Reza MD Unavailable Herman, Shahida Cummings APRN LEAD ELECTRICIAN Unavailable Un available Daylin Ludwig Unavailable [phone] Laurel Velasquez MD Unavailable [phone] Daylin Ludwig EP Unavailable [phone] Paula Reza MD Unavailable Porsha Michaels APRN LEAD ELECTRICIAN Unavailable [phone] Laurel Velasquez MD Unavailable Herman, Shahida Cummings APRN LEAD ELECTRICIAN Unavailable Un available Marilin Montaño LEAD ELECTRICIAN Unavailable [phone] Esha Dewitt MD Unavailable [phone] Heather Mosquera MD Unavailable Paula Reza MD Unavailable Esha Dewitt MD Unavailable [phone] Valdo Escamilla PA-C Unavailable [phone] Nohelia Abarca PA-C Unavailable [phone] Heather Mosquera MD Unavailable [phone] Fawad York MD Unavailable [phone] Encounter Details Date Type Department Care Team (Late st Contact Info) Description 09/08/2021 MyC Medical Advice [place] [address] [phone] Denisse Gamboa, RN Social [...] documented as of this encounter Care Teams House Director Relationship Specialty Start Date End Date Paula Reza MD [address] [place] [address] PCP - General Internal Medicine 08/05/21 Shahida Sutton APRN LEAD ELECTRICIAN Assigned PCP 07/12/14 09/30/21 Roopa Almonte MD [address] [place] [address] Endocrinology, Diabetes, and Metabolism 01/19/21 [place] [address] [facility] [place] 300 [place] [address] Assigned Musculoskeletal Provider 02/06/21 09/16/21 Maryse Burton PA-C 5200 [place] [address] Physician Manager Post Dermatology 04/14/21 Roopa Almonte MD 303 E [facility] 200 [place] [address] Hospitalist Endocrinology, Diabetes, and Metabolism 05/30/21 Griffin Joshi MD [address] [facility] [address] [place] [address] Cardiovascular Disease 07/25/21 Rina Magallon, RN Lead Tape Duplicator 07/29/21 07/11/22 Griffin Joshi MD [address] [facility] [address] [place] [address] Assigned Heart and Vascular Provider 08/06/21 10/07/21 Roopa Almonte MD [address] [facility] 200 [place], [place] [address] Assigned Endocrinology Provider 09/10/21 [place] [address] [facility] [place] [address] Assigned Musculoskeletal Provider 09/17/21 10/14/21 Lydia Bernstein PA-C [address] [place] [address] Assigned PCP 10/01/21 10/21/21 Rosa Maria Love W Community Health Worker 10/06/21 07/11/22 [place] [address] [place] [address] [place] [address] Assigned Musculoskeletal Provider 10/15/21 04/26/23 Paula Reza MD [address] [place] [address] Assigned PCP 10/22/21 12/23/21 Keerthi Miner APRN LEAD ELECTRICIAN [address] [place] [address] Assigned Heart and Vascular Provider 10/08/21 02/10/22 Shahida Sutton APRN LEAD ELECTRICIAN Assigned PCP 12/24/21 03/24/22 Porsha Michaels APRN LEAD ELECTRICIAN [address] [place] [address] Assigned Heart and Vascular Provider 02/11/22 05/12/22 Paula Reza MD [address] [place] [address] Assigned PCP 03/25/22 04/07/22 Shahida Sutton APRN LEAD ELECTRICIAN [address] [place] [address] Assigned PCP 04/08/22 06/30/22 Daylin Ludwig EP [facility] [address] [place] [address] Cardiac Rehabilitation Therapist 05/16/23 Laurel Velasquez MD [address] [place] [address] Assigned Heart and Vascular Provider 05/13/22 06/30/22 Daylin Ludwig, EP [facility] [address] [place] [address] Cardiac Rehabilitation Therapist 06/08/22 06/09/23 Paula Reza MD [address] [address] Assigned PCP 07/01/22 07/07/22 Porsha Michaels APRN LEAD ELECTRICIAN [address] [place] [address] Assigned Heart and Vascular Provider 07/01/22 07/07/22 Laurel Velasquez MD [address] [place] [address] Assigned Heart and Vascular Provider 07/08/22 08/04/22 Shahida Sutton APRN LEAD ELECTRICIAN Assigned PCP 07/08/22 09/08/22 Marilin Montaño, LEAD ELECTRICIAN [address] [place] [address] Assigned Heart and Vascular Provider 08/05/22 Esha Dewitt MD [address] [address] Gastroenterology 09/06/22 Heather Mosquera MD 6545 [facility] 150 [place] [address] Internal Medicine 09/06/22 Paula Reza MD [address] [facility] 200 [place] [address] Assigned PCP 09/09/22 01/05/23 Esha Dewitt MD [address] [address] Assigned Gastroenterology Provider 09/23/22 Valdo Escamilla PA-C 6363 [facility] 103 [place] [address] Assigned Neuroscience Provider 09/30/22 Nohelia Abarca PA-C 2450 [place] [address] Physician Manager Post Gastroenterology 10/03/22 Heather Mosquera MD 6545 [facility] 150 [place] [address] Assigned PCP 01/06/23 Fawad York MD 909 [place], [place] [address] Assigned Musculoskeletal Provider 04/27/23 06/25/23 documented as of this encounter
--- OUTSIDE RECORDS SUMMARY | 2023-10-02 15:45 | XMS_ITS | Encounter Summary ---
Author Organization [facility] Address [address] [place] [address] Care Team Providers Care Improvement Advisor Name Role Phone Roopa Almonte MD Unavailable [phone] Maryse Burton PA-C Unavailable [phone] Roopa Almonte MD Unavailable [phone] Griffin Joshi MD Unavailable Rina Magallon RN Unavailable [phone] Paula Reza MD Primary Care Provider [phone] Roopa Almonte MD Unavailable [phone] Rosa Maria Love Unavailable [phone] Augustine Callaway MD Unavailable Paula Reza MD Unavailable Keerthi Miner APRN CRATE ICER Unavailable [phone] Shahida Sutton APRN CRATE ICER Unavailable Un available Porsha Michaels APRN CRATE ICER Unavailable [phone] Paula Reza MD Unavailable Shahida Sutton APRN CRATE ICER Unavailable Un available Daylin Ludwig Unavailable Laurel Velasquez MD Unavailable ParthDaylin hernandez Marquita [place] Unavailable Paula Reza MD Unavailable Brando, Kim DUANE CRATE ICER Unavailable [phone] Laurel Velasquez MD Unavailable [phone] Shahida Sutton RETAIL COVERAGE MERCHANDISER CRATE ICER Unavailable Un available Marilin Montaño CRATE ICER Unavailable Esha Dewitt MD Unavailable [phone] Heather Mosquera MD Unavailable Paula Reza MD Unavailable Esha Dewitt MD Unavailable [phone] Valdo Escamilla PA-C Unavailable Nohelia Abarca PA-C Unavailable [phone] Heather Mosquera MD Unavailable Fawad York MD Unavailable Reason for Visit * Reason Onset Date Comments Call to schedule test 12/13/[address] scan Encounter Details Date Type Department Care Team (Late st Contact Info) Description 12/13/2021 Telephone [facility] Heart [place] [address] [facility] [address] [place] [phone] Candi Parada MD [address] [facility] [place] [phone] Call to schedule test (Reschedule ct scan) [...] documented as of this encounter Care Teams Improvement Advisor Relationship Specialty Start Date End Date Paula Reza MD [address] [facility] 200 [place] [address] PCP - General Internal Medicine 08/05/21 Roopa Almonte MD [address] [facility] 200 [place] [address] Endocrinology, Diabetes, and Metabolism 01/19/21 Maryse Burton, PAAna MariaC 5200 [place] [address] Physician Transformer Tester Dermatology 04/14/21 Roopa Almonte MD [address] [facility] 200 [place] [address] Hospitalist Endocrinology, Diabetes, and Metabolism 05/30/21 Griffin Joshi MD 6405 [facility] [address] [place] [address] Cardiovascular Disease 07/25/21 Rina Magallon, RN Lead Blind Hooker 07/29/21 07/11/22 Roopa Almonte MD [address] 200 [place], [place] [address] Assigned Endocrinology Provider 09/10/21 Rosa Maria Love CHW Community Health Worker 10/06/21 07/11/22 [place] [address] [facility] 300 [place] [address] Assigned Musculoskeletal Provider 10/15/21 04/26/23 Paula Reza MD [address] [place] [address] Assigned PCP 10/22/21 12/23/21 Keerthi Miner APRN CRATE ICER [address] [place] [address] Assigned Heart and Vascular Provider 10/08/21 02/10/22 Shahida Sutton APRN CRATE ICER Assigned PCP 12/24/21 03/24/22 Porsha Michaels APRN CRATE ICER [address] [address] Assigned Heart and Vascular Provider 02/11/22 05/12/22 Paula Reza MD [address] [place] [address] Assigned PCP 03/25/22 04/07/22 Shahida Sutton APRN CRATE ICER [address] [address] Assigned PCP 04/08/22 06/30/22 Daylin Ludwig, EP [facility] [address] [address] Cardiac Rehabilitation Therapist 05/16/23 Laurel Velasquez MD [address] [address] Assigned Heart and Vascular Provider 05/13/22 06/30/22 Daylin Ludwig, EP [facility] [address] [address] Cardiac Rehabilitation Therapist 06/08/22 06/09/23 Paula Reza MD [address] [place], [place] [address] Assigned PCP 07/01/22 07/07/22 Porsha Michaels APRN CRATE ICER [address] [place] [address] Assigned Heart and Vascular Provider 07/01/22 07/07/22 Laurel Velasquez MD [address] [place] [address] Assigned Heart and Vascular Provider 07/08/22 08/04/22 Shahida Sutton APRN CRATE ICER Assigned PCP 07/08/22 09/08/22 Marilin Montaño, CRATE ICER [address] [place] [address] Assigned Heart and Vascular Provider 08/05/22 Esha Dewitt MD [address] [place] [address] 36 [place], [place] [address] Gastroenterology 09/06/22 Heather Mosquera MD [address] [place] [address] Internal Medicine 09/06/22 Paula Reza MD [address] [place] [address] Assigned PCP 09/09/22 01/05/23 Esha eDwitt MD 420 [facility] 36 [place], [place] [address] Assigned Gastroenterology Provider 09/23/22 Valdo Escamilla PA-C [address] [facility] [address] [place] [address] Assigned Neuroscience Provider 09/30/22 Nohelia Abarca PA-C [address] [place] [address] Physician Transformer Tester Gastroenterology 10/03/22 Heather Mosquera MD [address] [place] [address] Assigned PCP 01/06/23 Fawad York MD 909 [place], [place] [address] Assigned Musculoskeletal Provider 04/27/23 06/25/23 documented as of this encounter
--- OUTSIDE RECORDS SUMMARY | 2023-10-02 15:45 | XMS_ITS | Encounter Summary ---
Author Organization [place] Address [address] [place] [address] Care Team Providers Care Buffing Machine Tender Name Role Phone HermanShahida APRN CUSTOMER SERVICE COORDINATOR Primary Care Provi ford Unavailable Shahida Sutton APRN CUSTOMER SERVICE COORDINATOR Unavailable Un available Carolynn Ramon RN Unavailable [phone] Anabela Barakat APRN CUSTOMER SERVICE COORDINATOR Unavailable Roopa Almonte MD Unavailable [phone] Augustine Callaway MD Unavailable Maryse Burton PA-C Unavailable [phone] Roopa Almonte MD Unavailable [phone] Griffin Joshi MD Unavailable Rina Magallon RN Unavailable [phone] Paula Reza MD Primary Care Provider [phone] Griffin Joshi MD Unavailable Roopa Almonte MD Unavailable [phone] Basilio Morillo DO Unavailable [phone] Lydia Bernstein PA-C Unavailable Kate Rosa Maria CHW Unavailable Augustine Callaway MD Unavailable Paula Reza MD Unavailable Keerthi Miner APRN CUSTOMER SERVICE COORDINATOR Unavailable Herman, Shahida Cummings APRN CUSTOMER SERVICE COORDINATOR Unavailable Un available Porsha Michaels APRN CUSTOMER SERVICE COORDINATOR Unavailable [phone] Paula Reza MD Unavailable Herman, Shahida Cummings APRN CUSTOMER SERVICE COORDINATOR Unavailable Un available Daylin Ludwig EP Unavailable [phone] Laurel Velasquez MD Unavailable FieteDaylin hernandez EP Unavailable [phone] Paula Reza MD Unavailable Porsha Michaels APRN CUSTOMER SERVICE COORDINATOR Unavailable [phone] Laurel Velasquez MD Unavailable [phone] Herman, Shahida Cummings APRN CUSTOMER SERVICE COORDINATOR Unavailable Un available Marilin Montaño CUSTOMER SERVICE COORDINATOR Unavailable Esha Dewitt MD Unavailable [phone] Heather Mosquera MD Unavailable [phone] Paula Reza MD Unavailable Esha Dewitt MD Unavailable [phone] Valdo Escamilla PA-C Unavailable [phone] Nohelia Abarca PA-C Unavailable Heather Mosquera MD Unavailable [phone] Fawad York MD Unavailable [phone] Reason for Visit * Reason Onset Date Comments Anticoagulation 07/15/2021 INR overdue Encounter Details Date Type Department Care Team (Latest Contact Info) Description 07/15/2021 Documentation Only [facility] Anticoagulation Clinic [address] [place] [phone] Aneta Thurman RN Anticoagulation (INR overdue) Social [...] documented as of this encounter Care Teams Buffing Machine Tender Relationship Specialty Start Date End Date Shahida Sutton APRN CUSTOMER SERVICE COORDINATOR PCP - General Nurse Practitioner 08/17/14 08/04/21 Paula Reza MD [address] [facility] 200 [place] [address] PCP - General Internal Medicine 08/05/21 Shahida Sutton APRN CUSTOMER SERVICE COORDINATOR Assigned PCP 07/12/14 09/30/21 Carolynn Ramon RN Personal Advocate & Liaison (PAL) 12/17/18 08/07/21 Anabela Barakat APRN CUSTOMER SERVICE COORDINATOR [address] [place] [address] Assigned Heart and Vascular Provider 08/15/20 08/05/21 Roopa Almonte MD [address] [facility] 200 [place] [address] Endocrinology, Diabetes, and Metabolism 01/19/21 [place] [address] [facility] 300 [place] [address] Assigned Musculoskeletal Provider 02/06/21 09/16/21 Maryse Burton PA-C [address] [place] [address] Physician Library Helper Dermatology 04/14/21 Roopa Almonte MD [address] [facility] 200 [place], [place] [address] Hospitalist Endocrinology, Diabetes, and Metabolism 05/30/21 Griffin Joshi MD [address] [facility] [address] [place] [address] Cardiovascular Disease 07/25/21 Rina Magallon, RN Lead Ware Finisher 07/29/21 07/11/22 Griffin Joshi MD [address] [facility] [address] [place] [address] Assigned Heart and Vascular Provider 08/06/21 10/07/21 Roopa Almonte MD [address] [facility] 200 [place], [place] [address] Assigned Endocrinology Provider 09/10/21 [place] [address] [facility] [place] [address] Assigned Musculoskeletal Provider 09/17/21 10/14/21 Lydia Bernstein PA-C [address] [place] [address] Assigned PCP 10/01/21 10/21/21 Rosa Maria Love CHW Community Health Worker 10/06/21 07/11/22 [place] [address] [address] [place] [address] Assigned Musculoskeletal Provider 10/15/21 04/26/23 Paula Reza MD [address] [facility] 200 [place], [place] [address] Assigned PCP 10/22/21 12/23/21 Keerthi Miner APRN CUSTOMER SERVICE COORDINATOR [address] [place] [address] Assigned Heart and Vascular Provider 10/08/21 02/10/22 Shahida Sutton APRN CUSTOMER SERVICE COORDINATOR Assigned PCP 12/24/21 03/24/22 Porsha Michaels APRN CUSTOMER SERVICE COORDINATOR [address] [place] [address] Assigned Heart and Vascular Provider 02/11/22 05/12/22 Paula Reza MD [address] [place] [address] Assigned PCP 03/25/22 04/07/22 Shahida Sutton APRN CUSTOMER SERVICE COORDINATOR [address] [place] [address] Assigned PCP 04/08/22 06/30/22 Daylin Ludwig, MIKI [facility] [address] [place] [address] Cardiac Rehabilitation Therapist 05/16/23 Laurel Velasquez MD [address] [place] [address] Assigned Heart and Vascular Provider 05/13/22 06/30/22 Daylin Ludwig, MI[facility] [address] [place] [address] Cardiac Rehabilitation Therapist 06/08/22 06/09/23 Paula Reza MD [address] [place] [address] Assigned PCP 07/01/22 07/07/22 Porsha Michaels APRN CUSTOMER SERVICE COORDINATOR [address] [place] [address] Assigned Heart and Vascular Provider 07/01/22 07/07/22 Laurel Velasquez MD [address] [place] [address] Assigned Heart and Vascular Provider 07/08/22 08/04/22 Shahida Sutton APRN CUSTOMER SERVICE COORDINATOR Assigned PCP 07/08/22 09/08/22 Marilin Montaño, PAULA [address] [facility] [place] [address] Assigned Heart and Vascular Provider 08/05/22 Esha Dewitt MD 420 [facility] 36 [place] [address] MD Gastroenterology 09/06/22 Heather Mosquera MD 65[address] [facility] [address] 150 [place], [place] [address] Internal Medicine 09/06/22 Paula Reza MD [address] [facility] 200 [place] [address] Assigned PCP 09/09/22 01/05/23 Esha Dewitt MD 420 [facility] 36 [place] [address] Assigned Gastroenterology Provider 09/23/22 Valdo Escamilla PA-C [address] [facility] [address] [place] [address] Assigned Neuroscience Provider 09/30/22 Nohelia Abarca PA-C [address] [place], [place] [address] Physician Library Helper Gastroenterology 10/03/22 Heather Mosquera MD [address] [place], [place] [address] Assigned PCP 01/06/23 Fawad York MD 9 [place] [address] Assigned Musculoskeletal Provider 04/27/23 06/25/23 documented as of this encounter
--- OUTSIDE RECORDS SUMMARY | 2023-10-02 15:45 | XMS_ITS | Encounter Summary ---
Author Organization [facility] Address [address] [place] [address] Care Team Providers Care Fabric Lay Out Worker Name Role Phone HermanShahida APRN PAPER GOODS MACHINE OPERATOR Primary Care Provi ford Unavailable Shahida Sutton APRN PAPER GOODS MACHINE OPERATOR Unavailable Un available Carolynn Ramon RN Unavailable [phone] Anabela Barakat APRN PAPER GOODS MACHINE OPERATOR Unavailable Roopa Almonte MD Unavailable [phone] Augustine Callaway MD Unavailable Maryse Burton PA-C Unavailable [phone] Roopa Almonte MD Unavailable [phone] Griffin Joshi MD Unavailable Rina Magallon RN Unavailable [phone] Paula Reza MD Primary Care Provider [phone] Griffin Joshi MD Unavailable Roopa Almonte MD Unavailable [phone] Basilio Morillo DO Unavailable [phone] Lydia Bernstein PA-C Unavailable Rosa Maria Love Unavailable Augustine Callaway MD Unavailable Paula Reza MD Unavailable Keerthi Miner APRN PAPER GOODS MACHINE OPERATOR Unavailable Herman, Shahida Cummings CARRIER OPERATOR PAPER GOODS MACHINE OPERATOR Unavailable Un available Porsha Michaels APRN PAPER GOODS MACHINE OPERATOR Unavailable [phone] Paula Reza MD Unavailable Herman, Shahida Cummings APRN PAPER GOODS MACHINE OPERATOR Unavailable Un available Daylin Ludwig EP Unavailable [phone] Laurel Velasquez MD Unavailable Fietedavid, Daylin Juárez EP Unavailable [phone] Paula Reza MD Unavailable Porsha Michaels APRN PAPER GOODS MACHINE OPERATOR Unavailable [phone] Laurel Velasquez MD Unavailable [phone] Herman, Shahida Cummings APRN PAPER GOODS MACHINE OPERATOR Unavailable Un available Marilin Montaño PAPER GOODS MACHINE OPERATOR Unavailable Esha Dewitt MD Unavailable [phone] Heather Mosquera MD Unavailable [phone] Paula Reza MD Unavailable Esha Dewitt MD Unavailable [phone] Valdo Escamilla PA-C Unavailable [phone] Nohelia Abarca PA-C Unavailable [phone] Heather Mosquera MD Unavailable [phone] Fawad York MD Unavailable [phone] Encounter Details Date Type Department Care Team (Late st Contact Info) Description 05/27/[address] [facility] Anticoagulation [address] [address] Jessica Lemus RN Social History [...] COVID-19? No / Unsure 05/03/2021 9:00 AM FIELD INVESTIGATOR documented as of this encounter Plan of [...] documented as of this encounter Care Teams Fabric Lay Out Worker Relationship Specialty Start Date End Date Shahida Sutton APRN PAPER GOODS MACHINE OPERATOR PCP - General Nurse Practitioner 08/17/14 08/04/21 Paula Reza MD [address] [address] PCP - General Internal Medicine 08/05/21 Shahida Sutton APRN PAPER GOODS MACHINE OPERATOR Assigned PCP 07/12/14 09/30/21 Carolynn Ramon RN Personal Advocate & Liaison (PAL) 12/17/18 08/07/21 Anabela Barakat APRN PAPER GOODS MACHINE OPERATOR [address] [place] [address] Assigned Heart and Vascular Provider 08/15/20 08/05/21 Roopa Almonte MD [address] [facility] 200 [place] [address] Endocrinology, Diabetes, and Metabolism 01/19/21 [place] [address] [facility] 300 [place] [address] Assigned Musculoskeletal Provider 02/06/21 09/16/21 Maryse Burton PA-C [address] [place] [address] Physician Cotton Sampler Dermatology 04/14/21 Roopa Almonte MD [address] [facility] 200 [place] [address] Hospitalist Endocrinology, Diabetes, and Metabolism 05/30/21 Griffin Joshi MD 6405 [facility] [address] [place] [address] Cardiovascular Disease 07/25/21 Rina Magallon, RN Lead Agricultural Economics Professor 07/29/21 07/11/22 Griffin Joshi MD 6405 [facility] [address] [place] [address] Assigned Heart and Vascular Provider 08/06/21 10/07/21 Roopa Almonte MD [address] 200 [place] [address] Assigned Endocrinology Provider 09/10/21 [place] [address] [facility] [place] [address] Assigned Musculoskeletal Provider 09/17/21 10/14/21 Lydia Bernstein PA-C [address] [place] [address] Assigned PCP 10/01/21 10/21/21 Rosa Maria Love CHW Community Health Worker 10/06/21 07/11/22 [place] [address] [place] [address] Assigned Musculoskeletal Provider 10/15/21 04/26/23 Paula Reza MD [address] [facility] 200 [place] [address] Assigned PCP 10/22/21 12/23/21 Keerthi Miner APRN PAPER GOODS MACHINE OPERATOR [address] [place] [address] Assigned Heart and Vascular Provider 10/08/21 02/10/22 Shahida Sutton APRN PAPER GOODS MACHINE OPERATOR Assigned PCP 12/24/21 03/24/22 Porsha Michaels APRN PAPER GOODS MACHINE OPERATOR [address] [place] [address] Assigned Heart and Vascular Provider 02/11/22 05/12/22 Paula Reza MD [address] [place] [address] Assigned PCP 03/25/22 04/07/22 Shahida Sutton APRN PAPER GOODS MACHINE OPERATOR [address] [place] [address] Assigned PCP 04/08/22 06/30/22 Daylin Ludwig, EP [facility] [address] [place] [address] Cardiac Rehabilitation Therapist 05/16/23 Laurel Velasquez MD [address] [place] [address] Assigned Heart and Vascular Provider 05/13/22 06/30/22 Daylin Ludwig, MIKI [facility] [address] [place] [address] Cardiac Rehabilitation Therapist 06/08/22 06/09/23 Paula Reza MD [address] [place] [address] Assigned PCP 07/01/22 07/07/22 Porsha Michaels APRN PAPER GOODS MACHINE OPERATOR [address] [place] [address] Assigned Heart and Vascular Provider 07/01/22 07/07/22 Laurel Velasquez MD [address] [place] [address] Assigned Heart and Vascular Provider 07/08/22 08/04/22 Shahida Sutton APRN PAPER GOODS MACHINE OPERATOR Assigned PCP 07/08/22 09/08/22 Marilin Montaño, PAPER GOODS MACHINE OPERATOR [address] [facility] [address] [address] [facility] [place] [address] Assigned Heart and Vascular Provider 08/05/22 Esha Dewitt MD [address] [address] MD Gastroenterology 09/06/22 Heather Mosquera MD [address] [place], [place] [address] Internal Medicine 09/06/22 Paula Reza MD [address] [facility] 200 [place], [place] [address] Assigned PCP 09/09/22 01/05/23 Esha Dewitt MD [address] [place] [address] Assigned Gastroenterology Provider 09/23/22 Valdo Escamilla PA-C [address] [facility] [address] [address] [facility] [address] Assigned Neuroscience Provider 09/30/22 Nohelia Abarca PA-C [address]50 [place] [address] Physician Cotton Sampler Gastroenterology 10/03/22 Heather Mosquera MD [address] [place] [address] Assigned PCP 01/06/23 Fawad York MD 9 [place] [address] Assigned Musculoskeletal Provider 04/27/23 06/25/23 documented as of this encounter
--- OUTSIDE RECORDS SUMMARY | 2023-10-02 15:45 | XMS_ITS | Encounter Summary ---
Author Organization [place] Address [address] [place] [address] Care Team Providers Care Traffic Assistant Name Role Phone Roopa Almonte MD Unavailable [phone] Maryse Burton PA-C Unavailable [phone] Roopa Almonte MD Unavailable [phone] Griffin Joshi MD Unavailable Rina Magallon RN Unavailable [phone] Paula Reza MD Primary Care Provider [phone] Roopa Almonte MD Unavailable [phone] Rosa Maria Love Unavailable [phone] Augustine Callaway MD Unavailable Keerthi Miner APRN CLEAT MAKER Unavailable [phone] Shahida Sutton APRN CLEAT MAKER Unavailable Un available Porsha Michaels APRN CLEAT MAKER Unavailable [phone] Paula Reza MD Unavailable HermanShahida huerta APRN CLEAT MAKER Unavailable Un available Daylin Ludwig Unavailable [phone] Laurel Velasquez MD Unavailable OzielDaylin Marquita [place] Unavailable [phone] Paula Reza MD Unavailable Porsha Michaels APRN CLEAT MAKER Unavailable [phone] Laurel Velasquez MD Unavailable Shahida Sutton APRN CLEAT MAKER Unavailable Un available Marilin Montaño CLEAT MAKER Unavailable Esha Dewitt MD Unavailable [phone] Heather Mosquera MD Unavailable Paula Reza MD Unavailable Esha Dewitt MD Unavailable [phone] Valdo Escamilla PA-C Unavailable [phone] Nohelia Abarca PA-C Unavailable [phone] Heather Mosquera MD Unavailable [phone] Fawad York MD Unavailable [phone] Encounter Details Date Type Department Care Team (Late st Contact Info) Description 01/10/2022 [facility] Endocrinology Clinic [address] [address] [facility] Social History Tobacco Use Types Packs/Day [...] Coronavirus/COVID-19? 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 [facility] [address] [address] Endocrinology, Diabetes, and Metabolism 01/19/21 Maryse Burton, PAAna MariaC 5200 [place] [address] Physician Black Ash Worker Dermatology 04/14/21 Roopa Almonte MD [address] [address] Hospitalist Endocrinology, Diabetes, and Metabolism 05/30/21 Griffin Joshi MD [address] [place] [address] Cardiovascular Disease 07/25/21 Rina Magallon, RN Lead Train Gateman 07/29/21 07/11/22 Roopa Almonte MD [address] [facility] 200 [place], [place] [address] Assigned Endocrinology Provider 09/10/21 Rosa Maria Love CHW Community Health Worker 10/06/21 07/11/22 [place] [address] [facility] 300 [place] [address] Assigned Musculoskeletal Provider 10/15/21 04/26/23 Keerthi Miner APRN CLEAT MAKER [address] [place] [address] Assigned Heart and Vascular Provider 10/08/21 02/10/22 Shahida Sutton, DUANE CLEAT MAKER Assigned PCP 12/24/21 03/24/22 Porsha Michaels APRN CLEAT MAKER [address] [place] [address] Assigned Heart and Vascular Provider 02/11/22 05/12/22 Paula Reza MD [address] [facility] 200 [place], [place] [address] Assigned PCP 03/25/22 04/07/22 Shahida Sutton APRN CLEAT MAKER [address] [place] [address] Assigned PCP 04/08/22 06/30/22 Daylin Ludwig, MIKI [facility] [address] [place] [address] Cardiac Rehabilitation Therapist 05/16/23 Laurel Velasquez MD [address] [place] [address] Assigned Heart and Vascular Provider 05/13/22 06/30/22 Daylin Ludwig, MIKI [facility] [address] [place] [address] Cardiac Rehabilitation Therapist 06/08/22 06/09/23 Paula Reza MD [address] [place] [address] Assigned PCP 07/01/22 07/07/22 Porsha Michaels APRN CLEAT MAKER [address] [place] [address] Assigned Heart and Vascular Provider 07/01/22 07/07/22 Laurel Velasquez MD [address] [address] Assigned Heart and Vascular Provider 07/08/22 08/04/22 Shahida Sutton APRN CLEAT MAKER Assigned PCP 07/08/22 09/08/22 Marilin Montaño, CLEAT MAKER [address] [facility] [address] Assigned Heart and Vascular Provider 08/05/22 Esha Dewitt MD [address] [address] Gastroenterology 09/06/22 Heather Mosquera MD [address] [place], [place] [address] Internal Medicine 09/06/22 Paula Reza MD [address] [facility] 200 [place] [address] Assigned PCP 09/09/22 01/05/23 Esha Dewitt MD [address] [address] Assigned Gastroenterology Provider 09/23/22 Valdo Escamilla PA-C [address] [facility] [address] [place] [address] Assigned Neuroscience Provider 09/30/22 Nohelia Abarca PA-C [address]50 [place] [address] Physician Black Ash Worker Gastroenterology 10/03/22 Heather Mosquera MD [address] [place] [address] Assigned PCP 01/06/23 Fawad [place] MD 9[address] [place] [address] Assigned Musculoskeletal Provider 04/27/23 06/25/23 documented as of this encounter
--- OUTSIDE RECORDS SUMMARY | 2023-10-02 15:45 | XMS_ITS | Encounter Summary ---
Author Organization [facility] Address [address] [place] [address] Care Team Providers Care Weir Fisher Name Role Phone HermanShahida APRN MOTORBOAT MECHANIC INBOARD Primary Care Provi ford Unavailable Shahida Sutton APRN MOTORBOAT MECHANIC INBOARD Unavailable Un available Carolynn Ramon RN Unavailable [phone] Anabela Barakat APRN MOTORBOAT MECHANIC INBOARD Unavailable Roopa Almonte MD Unavailable [phone] Augustine Callaway MD Unavailable Maryse Burton PA-C Unavailable [phone] Roopa Almonte MD Unavailable [phone] Griffin Joshi MD Unavailable Rina Magallon RN Unavailable [phone] Paula Reza MD Primary Care Provider [phone] Griffin Joshi MD Unavailable Roopa Almonte MD Unavailable [phone] Basilio Morillo DO Unavailable [phone] Lydia Bernstein PA-C Unavailable Kate Rosa Maria Cristina Unavailable Augustine Callaway MD Unavailable Paula Reza MD Unavailable Keerthi Miner APRN MOTORBOAT MECHANIC INBOARD Unavailable Herman, Shahida Cummings MEDICAL TRANSCRIPTION EDITOR MOTORBOAT MECHANIC INBOARD Unavailable Un available Porsha Michaels APRN MOTORBOAT MECHANIC INBOARD Unavailable [phone] Paula Reza MD Unavailable Herman, Shahida Cummings APRN MOTORBOAT MECHANIC INBOARD Unavailable Un available Daylin Ludwig EP Unavailable [phone] Laurel Velasquez MD Unavailable [phone] Fietedavid, Daylin Juárez EP Unavailable [phone] Paula Reza MD Unavailable Porsha Michaels APRN MOTORBOAT MECHANIC INBOARD Unavailable [phone] Laurel Velasquez MD Unavailable [phone] Herman, Shahida Cummings APRN MOTORBOAT MECHANIC INBOARD Unavailable Un available Marilin Montaño MOTORBOAT MECHANIC INBOARD Unavailable [phone] Esha Dewitt MD Unavailable [phone] Heather Mosquera MD Unavailable [phone] Paula Reza MD Unavailable Esha Dewitt MD Unavailable [phone] Valdo Escamilla PA-C Unavailable + [phone] Nohelia Abarca PA-C Unavailable [phone] Heather Mosquera MD Unavailable [phone] Fawad York MD Unavailable [phone] Encounter Details Date Type Department Care Team (Late st Contact Info) Description 05/24/2021 [facility] [address] [address] Anthony, Mary [place], [place] Social [...] COVID-19? 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 documented as of this encounter Plan [...] documented as of this encounter Care Teams Weir Fisher Relationship Specialty Start Date End Date Shahida Sutton APRN MOTORBOAT MECHANIC INBOARD PCP - General Nurse Practitioner 08/17/14 08/04/21 Paula Reza MD [address] [facility] 200 [place] [address] PCP - General Internal Medicine 08/05/21 Shahida Sutton APRN MOTORBOAT MECHANIC INBOARD Assigned PCP 07/12/14 09/30/21 Carolynn Ramon RN Personal Advocate & Liaison (PAL) 12/17/18 08/07/21 Anabela Barakat APRN MOTORBOAT MECHANIC INBOARD 1700 [place] [address] Assigned Heart and Vascular Provider 08/15/20 08/05/21 Roopa Almonte MD [address] [facility] 200 [place] [address] Endocrinology, Diabetes, and Metabolism 01/19/21 [place] [address] [facility] 300 [place] [address] Assigned Musculoskeletal Provider 02/06/21 09/16/21 Maryse Burton PA-C [address] [place] [address] Physician Nurse Practitioner Manager Dermatology 04/14/21 Roopa Almonte MD [address] [facility] 200 [place] [address] Hospitalist Endocrinology, Diabetes, and Metabolism 05/30/21 Griffin Joshi MD [address] [facility] [address] [place] [address] Cardiovascular Disease 07/25/21 Rina Magallon, RN Lead Diabetic Educator 07/29/21 07/11/22 Griffin Joshi MD [address] [facility] [address] [place] [address] Assigned Heart and Vascular Provider 08/06/21 10/07/21 Roopa Almonte MD [address] 200 [place] [address] Assigned Endocrinology Provider 09/10/21 [place] [address] [facility] [place] [address] Assigned Musculoskeletal Provider 09/17/21 10/14/21 Lydia Bernstein PA-C [address] [place] [address] Assigned PCP 10/01/21 10/21/21 Rosa Maria Love CHW Community Health Worker 10/06/21 07/11/22 [place] [address] [place] [address] Assigned Musculoskeletal Provider 10/15/21 04/26/23 Paula Reza MD [address] [facility] 200 [place] [address] Assigned PCP 10/22/21 12/23/21 Keerthi Miner APRN MOTORBOAT MECHANIC INBOARD [address] [place] [address] Assigned Heart and Vascular Provider 10/08/21 02/10/22 Shahida Sutton APRN MOTORBOAT MECHANIC INBOARD Assigned PCP 12/24/21 03/24/22 Porsha Michaels APRN MOTORBOAT MECHANIC INBOARD [address] [place] [address] Assigned Heart and Vascular Provider 02/11/22 05/12/22 Paula Reza MD [address] [place] [address] Assigned PCP 03/25/22 04/07/22 Shahida Sutton APRN MOTORBOAT MECHANIC INBOARD [address] [place] [address] Assigned PCP 04/08/22 06/30/22 Daylin Ludwig, EP [facility] [address] [place] [address] Cardiac Rehabilitation Therapist 05/16/23 Laurel Velasquez MD [address] [place] [address] Assigned Heart and Vascular Provider 05/13/22 06/30/22 Daylin Ludwig, MIKI [facility] [address] [place] [address] Cardiac Rehabilitation Therapist 06/08/22 06/09/23 Paula Reza MD [address] [place] [address] Assigned PCP 07/01/22 07/07/22 Porsha Michaels APRN MOTORBOAT MECHANIC INBOARD [address] [place] [address] Assigned Heart and Vascular Provider 07/01/22 07/07/22 Laurel Velasquez MD [address] [place] [address] Assigned Heart and Vascular Provider 07/08/22 08/04/22 Shahida Sutton APRN MOTORBOAT MECHANIC INBOARD Assigned PCP 07/08/22 09/08/22 Marilin Montaño, MOTORBOAT MECHANIC INBOARD [address] [facility] [place] [address] Assigned Heart and Vascular Provider 08/05/22 Esha Dewitt MD [address] [address] MD Gastroenterology 09/06/22 Heather Mosquera MD [address] [place], [place] [address] Internal Medicine 09/06/22 Paula Reza MD [address] [facility] 200 [place], [place] [address] Assigned PCP 09/09/22 01/05/23 Esha Dewitt MD [address] [place] [address] Assigned Gastroenterology Provider 09/23/22 Valdo Escamilla PA-C [address] [facility] [address] [place] [address] Assigned Neuroscience Provider 09/30/22 Nohelia Abarca PA-C 2450 [place] [address] Physician Nurse Practitioner Manager Gastroenterology 10/03/22 Heather Mosquera MD [address] [place] [address] Assigned PCP 01/06/23 Fawad York MD 9 [place] [address] Assigned Musculoskeletal Provider 04/27/23 06/25/23 documented as of this encounter
--- OUTSIDE RECORDS SUMMARY | 2023-10-02 15:45 | XMS_ITS | Encounter Summary ---
Author Organization [facility] Address [address] [place] [address] Care Team Providers Care Career Development Specialist Name Role Phone Shahida Suttontim ZEPEDA CNP Unavailable Un available Roopa Almonte MD Unavailable [phone] Augustine Callaway MD Unavailable Maryse Burton PA-C Unavailable Roopa Almonte MD Unavailable [phone] Griffin Joshi MD Unavailable Rina Magallon RN Unavailable [phone] Paula Reza MD Primary Care Provider [phone] Griffin Joshi MD Unavailable Roopa Almonte MD Unavailable [phone] Bsailio Morillo DO Unavailable [phone] Lydia BernsteinC Unavailable Rosa Maria Love Unavailable [phone] Augustine Callaway MD Unavailable Paula Reza MD Unavailable Keerthi Miner SWING MANAGER RIGGING HELPER Unavailable [phone] Herman, Shahida Cummings APRN RIGGING HELPER Unavailable Un available Porsha Michaels APRN RIGGING HELPER Unavailable +[phone] Paula Reza MD Unavailable Herman, Shahida Cummings APRN RIGGING HELPER Unavailable Un available Daylin Ludwig Unavailable [phone] Laurel Velasquez MD Unavailable [phone] Daylin Ludwig EP Unavailable [phone] Paula Reza MD Unavailable Porsha Michaels APRN RIGGING HELPER Unavailable +[phone] Laurel Velasquez MD Unavailable [phone] Herman, Shahida Cummings APRN RIGGING HELPER Unavailable Un available Marilin Montaño RIGGING HELPER Unavailable [phone] Esha Dewitt MD Unavailable [phone] Heather Mosquera MD Unavailable [phone] Paula Reza MD Unavailable Esha Dewitt MD Unavailable [phone] Valdo Escamilla PA-C Unavailable [phone] Nohelia Abarca PA-C Unavailable [phone] Heather Mosquera MD Unavailable [phone] Fawad York MD Unavailable [phone] Encounter Details Date Type Department Care Team (Late st Contact Info) Description 08/29/2021 [facility] [address] [address] [facility] Social History Tobacco Use Types Packs/Day [...] documented as of this encounter Care Teams Career Development Specialist Relationship Specialty Start Date End Date Paula Reza MD [address] [facility] 200 [place] [address] PCP - General Internal Medicine 08/05/21 Shahida Sutton APRN RIGGING HELPER Assigned PCP 07/12/14 09/30/21 Roopa Almonte MD [address] [facility] 200 [place] [address] Endocrinology, Diabetes, and Metabolism 01/19/21 [place] [address] [facility] 300 [place] [address] Assigned Musculoskeletal Provider 02/06/21 09/16/21 Maryse Burton PA-C [address] [place] [address] Physician Die Operator Dermatology 04/14/21 Roopa Almonte MD [address] [facility] 200 [place] [address] Hospitalist Endocrinology, Diabetes, and Metabolism 05/30/21 Griffin Joshi MD [address] [facility] [address] [place] [address] Cardiovascular Disease 07/25/21 Rina Magallon, RN Lead Field Agent 07/29/21 07/11/22 Griffin Joshi MD [address] [facility] [address] [place] [address] Assigned Heart and Vascular Provider 08/06/21 10/07/21 Roopa Almonte MD [address] [facility] 200 [place], [place] [address] Assigned Endocrinology Provider 09/10/21 [place] [address] [facility] [place] [address] Assigned Musculoskeletal Provider 09/17/21 10/14/21 Lydia Bernstein PA-C [address] [place] [address] Assigned PCP 10/01/21 10/21/21 Rosa Maria Love CHW Community Health Worker 10/06/21 07/11/22 [place] [address] [place] [address] Assigned Musculoskeletal Provider 10/15/21 04/26/23 Paula Reza MD [address] [place] [address] Assigned PCP 10/22/21 12/23/21 Keerthi Miner APRN RIGGING HELPER [address] [place] [address] Assigned Heart and Vascular Provider 10/08/21 02/10/22 Shahida Sutton APRN RIGGING HELPER Assigned PCP 12/24/21 03/24/22 Porsha Michaels APRN RIGGING HELPER [address] [place] [address] Assigned Heart and Vascular Provider 02/11/22 05/12/22 Paula Reza MD [address] [place] [address] Assigned PCP 03/25/22 04/07/22 Shahida Sutton APRN RIGGING HELPER [address] [place] [address] Assigned PCP 04/08/22 06/30/22 Daylin Ludwig, MIKI [facility] [address] [place] [address] Cardiac Rehabilitation Therapist 05/16/23 Laurel Velasquez MD [address] [place] [address] Assigned Heart and Vascular Provider 05/13/22 06/30/22 Daylin Ludwig, MIKI [facility] [address] [place] [address] Cardiac Rehabilitation Therapist 06/08/22 06/09/23 Paula Reza MD [address] [address]37 Assigned PCP 07/01/22 07/07/22 Porsha Michaels APRN RIGGING HELPER [address] [place] [address] Assigned Heart and Vascular Provider 07/01/22 07/07/22 Laurel Velasquez MD [address] [place] [address] Assigned Heart and Vascular Provider 07/08/22 08/04/22 Shahida Sutton, DUANE RIGGING HELPER Assigned PCP 07/08/22 09/08/22 Marilin Montaño, RIGGING HELPER [address] [place] [address] Assigned Heart and Vascular Provider 08/05/22 Esha Dewitt MD 420 [facility] 36 [place] [address] Gastroenterology 09/06/22 Heather Mosquera MD [address] [place] [address] Internal Medicine 09/06/22 Paula Reza MD [address] [facility] 200 [place] [address] Assigned PCP 09/09/22 01/05/23 Esha Dewitt MD [address] [address] Assigned Gastroenterology Provider 09/23/22 Valdo Escamilla PA-C [address] [facility] [address] [place] [address] Assigned Neuroscience Provider 09/30/22 Nohelia Abarca PA-C 2450 [place] [address] Physician Die Operator Gastroenterology 10/03/22 Heather Mosquera MD [address] [place], [place] [address] Assigned PCP 01/06/23 Fawad York MD 9[address] [place], [place] [address] Assigned Musculoskeletal Provider 04/27/23 06/25/23 documented as of this encounter
--- OUTSIDE RECORDS SUMMARY | 2023-10-02 15:45 | XMS_ITS | Encounter Summary ---
Author Organization [facility] Address [address] [place] [address] Care Team Providers Care Conditioner Tumbler Operator Name Role Phone HermanShahida APRN CLOTHING MANAGER Primary Care Provi ford Unavailable Shahida Sutton APRN CLOTHING MANAGER Unavailable Un available Carolynn Ramon RN Unavailable [phone] Anabela Barakat APRN CLOTHING MANAGER Unavailable Roopa Almonte MD Unavailable [phone] Augustine Callaway MD Unavailable Maryse Burton PA-C Unavailable [phone] Roopa Almonte MD Unavailable [phone] Griffin Joshi MD Unavailable Rina Magallon RN Unavailable [phone] Paula Reza MD Primary Care Provider [phone] Griffin Joshi MD Unavailable Roopa Almonte MD Unavailable [phone] Basilio Morillo DO Unavailable [phone] Lydia Bernstein PA-C Unavailable Kate Rosa Maria CHW Unavailable Augustine Callaway MD Unavailable Paula Reza MD Unavailable Keerthi Miner APRN CLOTHING MANAGER Unavailable Herman, Shahida Cummings APRN CLOTHING MANAGER Unavailable Un available Porsha Michaels APRN CLOTHING MANAGER Unavailable [phone] Paula Reza MD Unavailable Herman, Shahida Cummings APRN CLOTHING MANAGER Unavailable Un available Daylin Ludwig EP Unavailable [phone] Laurel Velasquez MD Unavailable [phone] Fietedavid, Daylin Juárez EP Unavailable +[phone] Paula Reza MD Unavailable Porsha Michaels APRN CLOTHING MANAGER Unavailable [phone] Laurel Velasquez MD Unavailable [phone] Herman, Shahida Cummings APRN CLOTHING MANAGER Unavailable Un available Marilin Montaño CLOTHING MANAGER Unavailable [phone] Esha Dewitt MD Unavailable [phone] Heather Mosquera MD Unavailable [phone] Paula Reza MD Unavailable Esha Dewitt MD Unavailable [phone] Valdo Escamilla PA-C Unavailable + [phone] Nohelia Abarca PA-C Unavailable [phone] Heather Mosquera MD Unavailable [phone] Fawad York MD Unavailable [phone] Reason for Visit * Reason Onset Date Comments Appointment 07/09/2021 Encounter Details Date Type Department Care Team (Late st Contact Info) Description 07/09/[address] [address] Shahida Sutton, INSPECTOR WREATH CLOTHING MANAGER Appointment Social History Tobacco Use Types Packs/Day [...] CMA - 07/12/2021 6:59 AM CDT Sent [employer] message to pt will appointment time. Will [...] documented as of this encounter Care Teams Conditioner Tumbler Operator Relationship Specialty Start Date End Date Shahida Sutton APRN CLOTHING MANAGER PCP - General Nurse Practitioner 08/17/14 08/04/21 Paula Reza MD [address] [place] [address] [place], [place] [address] PCP - General Internal Medicine 08/05/21 Shahida Sutton APRN CLOTHING MANAGER Assigned PCP 07/12/14 09/30/21 Carolynn Ramon RN Personal Advocate & Liaison (PAL) 12/17/18 08/07/21 Anabela Barakat APRN CLOTHING MANAGER 17[address] [place] [address] Assigned Heart and Vascular Provider 08/15/20 08/05/21 Roopa Almonte MD [address] [place] [facility] 200 [place] [address] Endocrinology, Diabetes, and Metabolism 01/19/21 [place] [address] [address] [place] [address] Assigned Musculoskeletal Provider 02/06/21 09/16/21 Maryse Burton, PAAna MariaC [address] [place] [address] Physician Mh Teacher Dermatology 04/14/21 Roopa Almonte MD [address] [facility] 200 [place] [address] Hospitalist Endocrinology, Diabetes, and Metabolism 05/30/21 Griffin Joshi MD [address] [place] [address] Cardiovascular Disease 07/25/21 Rina Magallon, RN Lead Teller Supervisor 07/29/21 07/11/22 Griffin Joshi MD [address] [place] [address] Assigned Heart and Vascular Provider 08/06/21 10/07/21 Roopa Almonte MD [address] [facility] 200 [place], [place] [address] Assigned Endocrinology Provider 09/10/21 [place] [address] [facility] [place] [address] Assigned Musculoskeletal Provider 09/17/21 10/14/21 Lydia Bernstein PA-C [address] [place], [place] [address] Assigned PCP 10/01/21 10/21/21 Rosa Maria Love CHW Community Health Worker 10/06/21 07/11/22 [place] [address] [place] [facility] 300 [place] [address] Assigned Musculoskeletal Provider 10/15/21 04/26/23 Paula Reza MD [address] [place] [address] Assigned PCP 10/22/21 12/23/21 Keerthi Miner APRN CLOTHING MANAGER [address] [place] [address] Assigned Heart and Vascular Provider 10/08/21 02/10/22 Shahida Sutton APRN CLOTHING MANAGER Assigned PCP 12/24/21 03/24/22 Porsha Michaels APRN CLOTHING MANAGER [address] [place] [address] Assigned Heart and Vascular Provider 02/11/22 05/12/22 Paula Reza MD [address] [place] [address] Assigned PCP 03/25/22 04/07/22 Shahida Sutton APRN CLOTHING MANAGER [address] [place] [address] Assigned PCP 04/08/22 06/30/22 Daylin Ludwig EP [facility] [address] [place] [address] Cardiac Rehabilitation Therapist 05/16/23 Laurel Velasquez MD [address] [place] [address] Assigned Heart and Vascular Provider 05/13/22 06/30/22 Daylin Ludwig EP [facility] [address] [place] [address] Cardiac Rehabilitation Therapist 06/08/22 06/09/23 Paula Reza MD [address] [facility] 200 [place], [place] [address] Assigned PCP 07/01/22 07/07/22 Porsha Michaels APRN CLOTHING MANAGER [address] [place] [address] Assigned Heart and Vascular Provider 07/01/22 07/07/22 Laurel Velasquez MD [address] [place] [address] Assigned Heart and Vascular Provider 07/08/22 08/04/22 Shahida Sutton APRN CLOTHING MANAGER Assigned PCP 07/08/22 09/08/22 Marilin Montaño, CLOTHING MANAGER [address] [place] [address] Assigned Heart and Vascular Provider 08/05/22 Esha Dewitt MD [address] [place] [address] 36 [place], [place] [address] Gastroenterology 09/06/22 Heather Mosquera MD [address] [place] [address] Internal Medicine 09/06/22 Paula Reza MD [address] [place] [address] Assigned PCP 09/09/22 01/05/23 Esha Dewitt MD 420 [facility] 36 [place] [address] Assigned Gastroenterology Provider 09/23/22 Valdo Escamilla PA-C [address] [facility] [address] [address] [place], [place] [address] Assigned Neuroscience Provider 09/30/22 Nohelia Abarca PA-C [address] [place] [address] Physician Mh Teacher Gastroenterology 10/03/22 Heather Mosquera MD [address] [facility] [address] [facility] 150 [place] [address] Assigned PCP 01/06/23 Fawad York MD 909 [place] [address] Assigned Musculoskeletal Provider 04/27/23 06/25/23 documented as of this encounter
--- OUTSIDE RECORDS SUMMARY | 2023-10-02 15:45 | XMS_ITS | Encounter Summary ---
Author Organization [facility] Address [address] [place] [address] Care Team Providers Care Refrigerating Engineer Head Name Role Phone HermanShahida APRN DISULFURIZER TENDER Primary Care Provi ford Unavailable Shahida Sutton APRN DISULFURIZER TENDER Unavailable Un available Carolynn Ramon RN Unavailable [phone] Anabela Barakat APRN DISULFURIZER TENDER Unavailable Roopa Almonte MD Unavailable [phone] Augustine Callaway MD Unavailable Maryse Burton PA-C Unavailable [phone] Rooap Almonte MD Unavailable [phone] Griffin Joshi MD Unavailable Rina Magallon RN Unavailable [phone] Paula Reza MD Primary Care Provider [phone] Griffin Joshi MD Unavailable Roopa Almonte MD Unavailable [phone] Basilio Morillo DO Unavailable [phone] Lydia Bernstein PA-C Unavailable Kate Rosa Maria CHW Unavailable Augustine Callaway MD Unavailable Paula Reza MD Unavailable Keerthi Miner APRN DISULFURIZER TENDER Unavailable Herman, Shahida Cummings APRN DISULFURIZER TENDER Unavailable Un available Porsha Michaels APRN DISULFURIZER TENDER Unavailable [phone] Paula Reza MD Unavailable Herman, Shahida Cummings APRN DISULFURIZER TENDER Unavailable Un available Daylin Ludwig EP Unavailable [phone] Laurel Velasquez MD Unavailable [phone] Fietedavid, Daylin Juárez EP Unavailable [phone] Paula Reza MD Unavailable Porsha Michaels APRN DISULFURIZER TENDER Unavailable [phone] Laurel Velasquez MD Unavailable [phone] Herman, Shahida Cummings APRN DISULFURIZER TENDER Unavailable Un available Marilin Montaño DISULFURIZER TENDER Unavailable [phone] Esha Dewitt MD Unavailable [phone] Heather Mosquera MD Unavailable [phone] Paula Reza MD Unavailable Esha Dewitt MD Unavailable [phone] Valdo Escamilla PA-C Unavailable + [phone] Nohelia Abarca PA-C Unavailable [phone] Heather Mosquera MD Unavailable [phone] Fawad York MD Unavailable [phone] Reason for Visit * Reason Onset Date Comments Patient Request 07/01/2021 Work letter - RN ULISES Encounter Details Date Type Department Care Team (Late st Contact Info) Description 07/01/2021 [facility] [place] [phone] Shahida Sutton APRN DISULFURIZER TENDER Patient Request (Work letter - RN ULISES [...] Ramon, Registered Nurse, ULISES (Patient Advocate Liason) [facility] [phone] * Telephone Encounter - Marquita Singh CMA [...] documented as of this encounter Care Teams Refrigerating Engineer Head Relationship Specialty Start Date End Date Shahida Sutton APRN DISULFURIZER TENDER PCP - General Nurse Practitioner 08/17/14 08/04/21 Paula Reza MD [address] [place], [place] [address] PCP - General Internal Medicine 08/05/21 Shahida Sutton APRN DISULFURIZER TENDER Assigned PCP 07/12/14 09/30/21 Carolynn Ramon RN Personal Advocate & Liaison (PAL) 12/17/18 08/07/21 Anabela Barakat APRN DISULFURIZER TENDER 170 [place] [address] Assigned Heart and Vascular Provider 08/15/20 08/05/21 Roopa Almonte MD [address] [facility] 200 [place] [address] Endocrinology, Diabetes, and Metabolism 01/19/21 [place] [address] [place] [address] Assigned Musculoskeletal Provider 02/06/21 09/16/21 Maryse Burton, PAAna MariaC [address] [place] [address] Physician P D Driver Dermatology 04/14/21 Roopa Almonte MD [address] [facility] 200 [place] [address] Hospitalist Endocrinology, Diabetes, and Metabolism 05/30/21 Griffin Joshi MD [address] [place] [address] Cardiovascular Disease 07/25/21 Rina Magallon, RN Lead Automation Lead 07/29/21 07/11/22 Griffin Joshi MD [address] [place] [address] Assigned Heart and Vascular Provider 08/06/21 10/07/21 Roopa Almonte MD [address] [facility] 200 [place], [place] [address] Assigned Endocrinology Provider 09/10/21 [place] [address] [facility] [place] [address] Assigned Musculoskeletal Provider 09/17/21 10/14/21 Lydia Bernstein PA-C [address] [place], [place] [address] Assigned PCP 10/01/21 10/21/21 Rosa Maria Love CHW Community Health Worker 10/06/21 07/11/22 [place] [address] [address] [facility] 300 [place] [address] Assigned Musculoskeletal Provider 10/15/21 04/26/23 Paula Reza MD [address] [place] [address] Assigned PCP 10/22/21 12/23/21 Keerthi Miner APRN DISULFURIZER TENDER [address] [place] [address] Assigned Heart and Vascular Provider 10/08/21 02/10/22 Shahida Sutton APRN DISULFURIZER TENDER Assigned PCP 12/24/21 03/24/22 Porsha Michaels APRN DISULFURIZER TENDER [address] [address] Assigned Heart and Vascular Provider 02/11/22 05/12/22 Paula Reza MD [address] 200 [place] [address] Assigned PCP 03/25/22 04/07/22 Shahida Sutton APRN DISULFURIZER TENDER [address] [address] Assigned PCP 04/08/22 06/30/22 Daylin Ludwig EP [facility] [address] [address] Cardiac Rehabilitation Therapist 05/16/23 Laurel Velasquez MD [address] [address] Assigned Heart and Vascular Provider 05/13/22 06/30/[address] [facility] [address] [place] [address] Cardiac Rehabilitation Therapist 06/08/22 06/09/23 Paula Reza MD [address] [facility] 200 [place], [place] [address] Assigned PCP 07/01/22 07/07/22 Porsha Michaels APRN DISULFURIZER TENDER [address] [place] [address] Assigned Heart and Vascular Provider 07/01/22 07/07/22 Laurel Velasquez MD [address] [place] [address] Assigned Heart and Vascular Provider 07/08/22 08/04/22 Shahida Sutton APRN DISULFURIZER TENDER Assigned PCP 07/08/22 09/08/22 Marilin Montaño, DISULFURIZER TENDER [address] [place] [address] Assigned Heart and Vascular Provider 08/05/22 Esha Dewitt MD [address] [place] [address] 36 [place], [place] [address] Gastroenterology 09/06/22 Heather Mosquera MD [address] [place] [address] Internal Medicine 09/06/22 Paula Reza MD [address] [place] [address] Assigned PCP 09/09/22 01/05/23 Esha Dewitt MD [address] [facility] 36 [place] [address] Assigned Gastroenterology Provider 09/23/22 Valdo Escamilla PA-C [address] [facility] [address] [place], [place] [address] Assigned Neuroscience Provider 09/30/22 Nohelia Abarca PA-C [address] [facility] [place] [address] Physician P D Driver Gastroenterology 10/03/22 Heather Mosquera MD [address] [facility] [address] [facility] 150 [place] [address] Assigned PCP 01/06/23 Fawad York MD 909 [place] [address] Assigned Musculoskeletal Provider 04/27/23 06/25/23 documented as of this encounter
--- OUTSIDE RECORDS SUMMARY | 2023-10-02 15:46 | XMS_ITS | Encounter Summary ---
Author Organization [facility] Address [address] [place] [address] Care Team Providers Care Digital Associate Media Director Name Role Phone HermanShahida APRN TREASURER SAVINGS BANK Primary Care Provi ford Unavailable Shahida Sutton APRN TREASURER SAVINGS BANK Unavailable Un available Carolynn Ramon RN Unavailable [phone] Anabela Barakat APRN TREASURER SAVINGS BANK Unavailable Fawad York MD Unavailable [phone] Roopa Almonte MD Unavailable [phone] Augustine Callaway MD Unavailable Maryse Burton PA-C Unavailable [phone] Marquita Starkey MD Unavailable [phone] Roopa Almonte MD Unavailable [phone] Griffin Joshi MD Unavailable Rina Magallon RN Unavailable [phone] Paula Reza MD Primary Care Provider [phone] Griffin Joshi MD Unavailable Roopa Almonte MD Unavailable [phone] Basilio Morillo DO Unavailable Lydia Bernstein PA-C Unavailable Rosa Maria Love Unavailable Augustine Callaway MD Unavailable Paula Reza MD Unavailable Keerthi Miner APRN TREASURER SAVINGS BANK Unavailable [phone] Herman, Shahida Cummings MAT PACKER TREASURER SAVINGS BANK Unavailable Un available Porsha Michaels APRN TREASURER SAVINGS BANK Unavailable Paula Reza MD Unavailable Herman, Shahida Cummings APRN TREASURER SAVINGS BANK Unavailable Un available Daylin Ludwig Unavailable Laurel Velasquez MD Unavailable Daylin Ludwig Unavailable Paula Reza MD Unavailable Porsha Michaels APRN TREASURER SAVINGS BANK Unavailable Laurel Velasquez MD Unavailable Herman, Shahida Cummings APRN TREASURER SAVINGS BANK Unavailable Un available Marilin Montaño TREASURER SAVINGS BANK Unavailable Esha Dewitt MD Unavailable [phone] Heather Mosquera MD Unavailable Paula Reza MD Unavailable Esha Dewitt MD Unavailable [phone] Valdo Escamilla PA-C Unavailable Nohelia Abarca PA-C Unavailable [phone] Heather Mosquera MD Unavailable Fawad York MD Unavailable Encounter Details Date Type Department Care Team (Late st Contact Info) Description 01/04/2021 [facility] Medical Advice [address] [phone] Shahida Sutton APRN CNP Social History Tobacco [...] documented as of this encounter Care Teams Digital Associate Media Director Relationship Specialty Start Date End Date Shahida Sutton APRN CNP PCP - General Nurse Practitioner 08/17/14 08/04/21 Paula Reza MD [address] [facility] 200 [place] [address] PCP - General Internal Medicine 08/05/21 Shahida Sutton APRN TREASURER SAVINGS BANK Assigned PCP 07/12/14 09/30/21 Carolynn Ramon, KASIE Personal Advocate & Liaison (PAL) 12/17/18 08/07/21 Anabela Barakat, MAT PACKER TREASURER SAVINGS BANK 1700 [place] [address] Assigned Heart and Vascular Provider 08/15/20 08/05/21 Fawad York MD 9[address] [place], [place] [address] Assigned Musculoskeletal Provider 12/05/20 02/05/21 Roopa Almonte MD [address] [facility] 200 [place] [address] Endocrinology, Diabetes, and Metabolism 01/19/21 [place] [address] [facility] 300 [place] [address] Assigned Musculoskeletal Provider 02/06/21 09/16/21 Maryse Burton, PAAna MariaC 5200 [place] [address] Physician Ship Liner Dermatology 04/14/21 Marquita Starkey MD [address] [place] [address] Internal Medicine 05/06/21 05/06/21 Roopa Almonte MD [address] 200 [place] [address] Hospitalist Endocrinology, Diabetes, and Metabolism 05/30/21 Griffin Joshi MD [address] [facility] [address] [place] [address] Cardiovascular Disease 07/25/21 Rina Magallon, RN Lead Band And Cuff Cutter 07/29/21 07/11/22 Griffin Joshi MD [address] [facility] [address] [place] [address] Assigned Heart and Vascular Provider 08/06/21 10/07/21 Roopa Almonte MD [address] [place] [address] 200 [place], [place] [address] Assigned Endocrinology Provider 09/10/21 [place] [address] [place] [address] Assigned Musculoskeletal Provider 09/17/21 10/14/21 Lydia Bernstein PA-C [address] [facility] 150 [place] [address] Assigned PCP 10/01/21 10/21/21 Rosa Maria Love CHW Community Health Worker 10/06/21 07/11/22 [place] [address] [place] [facility] 300 [place] [address] Assigned Musculoskeletal Provider 10/15/21 04/26/23 Paula Reza MD [address] [facility] 200 [place], [place] [address] Assigned PCP 10/22/21 12/23/21 Keerthi Miner MAT PACKER TREASURER SAVINGS BANK [address] [place] [address] Assigned Heart and Vascular Provider 10/08/21 02/10/22 Shahida Sutton, MAT PACKER TREASURER SAVINGS BANK Assigned PCP 12/24/21 03/24/22 Porsha Michaels MAT PACKER TREASURER SAVINGS BANK [address] [address] Assigned Heart and Vascular Provider 02/11/22 05/12/22 Paula Reza MD [address] [facility] 200 [place] [address] Assigned PCP 03/25/22 04/07/22 Shahida Sutton MAT PACKER TREASURER SAVINGS BANK [address] [address] Assigned PCP 04/08/22 06/30/22 Daylin Ludwig, MIKI [facility] [address] [address] Cardiac Rehabilitation Therapist 05/16/23 Laurel Velasquez MD [address] [address] Assigned Heart and Vascular Provider 05/13/22 06/30/22 Daylin Ludwig, MIKI [facility] [address] [address] Cardiac Rehabilitation Therapist 06/08/22 06/09/23 Paula Reza MD [address] [place] [address] Assigned PCP 07/01/22 07/07/22 Porsha Michales APRN TREASURER SAVINGS BANK [address] [place] [address] Assigned Heart and Vascular Provider 07/01/22 07/07/22 Laurel Velasquez MD [address] [place] [address] Assigned Heart and Vascular Provider 07/08/22 08/04/22 Shahida Sutton APRN TREASURER SAVINGS BANK Assigned PCP 07/08/22 09/08/22 Marilin Montaño TREASURER SAVINGS BANK [address] [place] [address] Assigned Heart and Vascular Provider 08/05/22 Esha Dewitt MD 420 [facility] 36 [place] [address] Gastroenterology 09/06/22 Heather Mosquera MD [address] [place] [address] Internal Medicine 09/06/22 Paula Reza MD [address] [place] [address] Assigned PCP 09/09/22 01/05/23 Esha Dewitt MD 420 [facility] 36 [place] [address] Assigned Gastroenterology Provider 09/23/22 Valdo Escamilla PA-C 6363 [facility] 103 [place] [address] Assigned Neuroscience Provider 09/30/22 Nohelia Abarca PA-C 2450 [place] [address] Physician Ship Liner Gastroenterology 10/03/22 Heather Mosquera MD 6545 [facility] 150 [place] [address] Assigned PCP 01/06/23 Fawad York MD 909 [place] [address] Assigned Musculoskeletal Provider 04/27/23 06/25/23 documented as of this encounter
--- OUTSIDE RECORDS SUMMARY | 2023-10-02 15:46 | XMS_ITS | Encounter Summary ---
Author Organization [facility] Address [address] [place] [address] Care Team Providers Care Software Engineer Mobile Name Role Phone HermanShahida APRN PRODUCTION CONTROL CLERK Primary Care Provi ford Unavailable Shahida Sutton APRN PRODUCTION CONTROL CLERK Unavailable Un available Carolynn Ramon RN Unavailable [phone] Anabela Barakat APRN PRODUCTION CONTROL CLERK Unavailable Roopa Almonte MD Unavailable [phone] Augustine Callaway MD Unavailable Maryse Burton PA-C Unavailable [phone] Marquita Starkey MD Unavailable [phone] Roopa Almonte MD Unavailable [phone] Griffin Joshi MD Unavailable Rina Magallon RN Unavailable [phone] Paula Reza MD Primary Care Provider [phone] Griffin Joshi MD Unavailable Roopa Almonte MD Unavailable [phone] Basilio Morillo DO Unavailable [phone] Lydia BernsteinC Unavailable Rosa Maria Love Unavailable Augustine Callaway MD Unavailable Paula Reza MD Unavailable Keerthi Miner APRN PRODUCTION CONTROL CLERK Unavailable Herman, Shahida Cummings APRN PRODUCTION CONTROL CLERK Unavailable Un available Porsha Michaels APRN PRODUCTION CONTROL CLERK Unavailable [phone] Paula Reza MD Unavailable Herman, Shahida Cummings APRN PRODUCTION CONTROL CLERK Unavailable Un available Daylin Ludwig Unavailable [phone] Laurel Velasquez MD Unavailable Daylin Ludwig Unavailable [phone] Paula Reza MD Unavailable Porsha Michaels APRN PRODUCTION CONTROL CLERK Unavailable [phone] Laurel Velasquez MD Unavailable Herman, Shahida Cummings APRN PRODUCTION CONTROL CLERK Unavailable Un available Marilin Montaño PRODUCTION CONTROL CLERK Unavailable Esha Dewitt MD Unavailable [phone] Heather Mosquera MD Unavailable [phone] Paula Reza MD Unavailable Esha Dewitt MD Unavailable [phone] Valdo Escamilla PA-C Unavailable [phone] Nohelia Abarca-C Unavailable [phone] Heather Mosquera MD Unavailable Fawad York MD Unavailable [phone] Reason for Visit * Reason Comments Medication Refill Encounter Details Date Type Department Care Team (Late st Contact Info) Description 02/21/[address] [place] [phone] Shahida Sutton APRN PRODUCTION CONTROL CLERK Medication Refill Social History Tobacco Use Types [...] COVID-19? No / Unsure 02/07/2021 7:55 AM HEAVY EQUIPMENT OPERATOR/PAVER documented as of this encounter Miscellaneous Notes * Telephone Encounter - Marilin Cuevas RN - 02/21/2021 2:10 PM HEAVY EQUIPMENT OPERATOR/PAVER Routing refill request to provider for review/approval because: Drug not on the [facility] refill protocol Marilin Cuevas RN [facility] -- Triage Nurse Y EQUIPMENT OPERATOR/PAVER documented in this encounter Plan of Treatment [...] documented as of this encounter Care Teams Software Engineer Mobile Relationship Specialty Start Date End Date Shahida Sutton APRN PRODUCTION CONTROL CLERK PCP - General Nurse Practitioner 08/17/14 08/04/21 Paula Reza MD [address] [facility] 200 [place] [address] PCP - General Internal Medicine 08/05/21 Shahida Sutton, ASSISTANT MANAGER OF OPERATIONS PRODUCTION CONTROL CLERK Assigned PCP 07/12/14 09/30/21 Carolynn Ramon RN Personal Advocate & Liaison (PAL) 12/17/18 08/07/21 Anabela Barakat APRN PRODUCTION CONTROL CLERK 1700 [place] [address] Assigned Heart and Vascular Provider 08/15/20 08/05/21 Roopa Almonte MD [address] [address] Endocrinology, Diabetes, and Metabolism 01/19/21 [place] [address] [address] Assigned Musculoskeletal Provider 02/06/21 09/16/21 Maryse Burton, PA-C 5200 [place] [address] Physician Electronic Assembler Dermatology 04/14/21 Marquita Starkey MD [address] [address] Internal Medicine 05/06/21 05/06/21 Roopa Almonte MD [address] [address] Hospitalist Endocrinology, Diabetes, and Metabolism 05/30/21 Griffin Joshi MD [address] [facility] [address] [place] [address] Cardiovascular Disease 07/25/21 Rina Magallon, RN Lead Gluing Pressman 07/29/21 07/11/22 Griffin Joshi MD [address] [place] [address] Assigned Heart and Vascular Provider 08/06/21 10/07/21 Roopa Almonte MD [address] [place] [address] 200 [place] [address] Assigned Endocrinology Provider 09/10/21 [place] [address] [facility] [place] [address] Assigned Musculoskeletal Provider 09/17/21 10/14/21 Lydia Bernstein PA-C [address] [facility] 150 [place] [address] Assigned PCP 10/01/21 10/21/21 Rosa Maria Love CHW Community Health Worker 10/06/21 07/11/22 [place] [address] [address] [facility] 300 [place] [address] Assigned Musculoskeletal Provider 10/15/21 04/26/23 Paula Reza MD [address] [place] [address] Assigned PCP 10/22/21 12/23/21 Keerthi Miner APRN PRODUCTION CONTROL CLERK [address] [place] [address] Assigned Heart and Vascular Provider 10/08/21 02/10/22 Shahida Sutton APRN PRODUCTION CONTROL CLERK Assigned PCP 12/24/21 03/24/22 Porsha Michaels APRN PRODUCTION CONTROL CLERK [address] [address] Assigned Heart and Vascular Provider 02/11/22 05/12/22 Paula Reza MD [address] [place] [address] Assigned PCP 03/25/22 04/07/22 Shahida Sutton APRN PRODUCTION CONTROL CLERK [address] [address] Assigned PCP 04/08/22 06/30/22 Daylin Ludwig, EP [facility] [address] [address] Cardiac Rehabilitation Therapist 05/16/23 Laurel Velasquez MD [address] [address] Assigned Heart and Vascular Provider 05/13/22 06/30/22 Daylin Ludwig, EP [facility] [address] [address] Cardiac Rehabilitation Therapist 06/08/22 06/09/23 Paula Reza MD [address] [place], [place] [address] Assigned PCP 07/01/22 07/07/22 Porsha Michaels APRN PRODUCTION CONTROL CLERK [address] [place] [address] Assigned Heart and Vascular Provider 07/01/22 07/07/22 Laurel Velasquez MD [address] [place] [address] Assigned Heart and Vascular Provider 07/08/22 08/04/22 Shahida Sutton APRN PRODUCTION CONTROL CLERK Assigned PCP 07/08/22 09/08/22 Marilin Montaño, PRODUCTION CONTROL CLERK [address] [place] [address] Assigned Heart and Vascular Provider 08/05/22 Esha Dewitt MD [address] [place] [address] 36 [place], [place] [address] Gastroenterology 09/06/22 Heather Mosquera MD [address] [place] [address] Internal Medicine 09/06/22 Paula Reza MD [address] [place] [address] Assigned PCP 09/09/22 01/05/23 Esha Dewitt MD 420 [facility] 36 [place] [address] Assigned Gastroenterology Provider 09/23/22 Valdo Escamilla PA-C [address] [facility] [address] [place] [address] Assigned Neuroscience Provider 09/30/22 Nohelia Abarca PA-C [address] [place] [address] Physician Electronic Assembler Gastroenterology 10/03/22 Heather Mosquera MD [address] [place] [address] Assigned PCP 01/06/23 Fawad York MD 909 [place] [address] Assigned Musculoskeletal Provider 04/27/23 06/25/23 documented as of this encounter
--- OUTSIDE RECORDS SUMMARY | 2023-10-02 15:46 | XMS_ITS | Encounter Summary ---
Author Organization [place] Address [address] [place] [address] Care Team Providers Care Nitro Worker Name Role Phone HermanShahida APRN ON SITE SOIL EVALUATOR Primary Care Provi ford Unavailable Shahida Sutton APRN ON SITE SOIL EVALUATOR Unavailable Un available Carolynn Ramon RN Unavailable [phone] Anabela Barakat APRN ON SITE SOIL EVALUATOR Unavailable Basilio Morillo DO Unavailable [phone] Fawad York MD Unavailable [phone] Roopa Almonte MD Unavailable [phone] Augustine Callaway MD Unavailable Maryse Burton PA-C Unavailable [phone] Marquita Starkey MD Unavailable [phone] Roopa Almonte MD Unavailable [phone] Griffin Joshi MD Unavailable Rina Magallon RN Unavailable [phone] Paula Reza MD Primary Care Provider [phone] Griffin Joshi MD Unavailable Roopa Almonte MD Unavailable [phone] IliaBasilio DO Unavailable Lydia Bernstein PA-C Unavailable KateRosa Maria RACHELL Unavailable [phone] Augustine Callaway MD Unavailable Paula Reza MD Unavailable Keerthi Miner APRN ON SITE SOIL EVALUATOR Unavailable [phone] Herman, Shahida Cummings APRN ON SITE SOIL EVALUATOR Unavailable Un available Porsha Michaels APRN ON SITE SOIL EVALUATOR Unavailable [phone] Paula Reza MD Unavailable Herman, Shahida Cummings APRN ON SITE SOIL EVALUATOR Unavailable Un available Daylin Ludwig Unavailable [phone] Laurel Velasquez MD Unavailable [phone] FiDaylin sullivan EP Unavailable [phone] Paula Reza MD Unavailable Porsha Michaels APRN ON SITE SOIL EVALUATOR Unavailable [phone] Laurel Velasquez MD Unavailable Herman, Shahida Cummings APRN ON SITE SOIL EVALUATOR Unavailable Un available Marilin Montaño ON SITE SOIL EVALUATOR Unavailable [phone] Esha Dewitt MD Unavailable [phone] Heather Mosquera MD Unavailable [phone] Paula Reza MD Unavailable Esha Dewitt MD Unavailable [phone] Valdo Escamilla PA-C Unavailable [phone] Nohelia Abarca-C Unavailable [phone] Heather Mosquera MD Unavailable [phone] Fawad York MD Unavailable Reason for Visit * Reason Comments Medication Refill Encounter Details Date Type Department Care Team (Late st Contact Info) Description 11/17/[address] [address] Shahida Sutton APRN ON SITE SOIL EVALUATOR Medication Refill Social History Tobacco Use Types [...] documented as of this encounter Care Teams Nitro Worker Relationship Specialty Start Date End Date Shahida Sutton APRN ON SITE SOIL EVALUATOR PCP - General Nurse Practitioner 08/17/14 08/04/21 Paula Reza MD [address] [place] [address] PCP - General Internal Medicine 08/05/21 Shahida Sutton APRN ON SITE SOIL EVALUATOR Assigned PCP 07/12/14 09/30/21 Carolynn Ramon RN Personal Advocate & Liaison (PAL) 12/17/18 08/07/21 Anabela Barakat APRN ON SITE SOIL EVALUATOR 1700 [place] [address] Assigned Heart and Vascular Provider 08/15/20 08/05/21 [place] [address] [place] [address] Assigned Musculoskeletal Provider 11/14/20 12/04/20 Fawad York MD 9 [place] [address] Assigned Musculoskeletal Provider 12/05/20 02/05/21 Roopa Almonte MD [address] [place] [address] Endocrinology, Diabetes, and Metabolism 01/19/21 [place] [address] [place], [place] [address] Assigned Musculoskeletal Provider 02/06/21 09/16/21 Maryse Burton PA-C [address] [place] [address] Physician Hunting Guide Dermatology 04/14/21 Marquita Starkey MD [address] [facility] 200 [place] [address] Internal Medicine 05/06/21 05/06/21 Roopa Almonte MD [address] [facility] 200 [place] [address] Hospitalist Endocrinology, Diabetes, and Metabolism 05/30/21 Griffin Joshi MD [address] [facility] [address] [place] [address] Cardiovascular Disease 07/25/21 Rina Magallon, RN Lead Form Block Maker 07/29/21 07/11/22 Griffin Joshi MD [address] [facility] [address] [place] [address] Assigned Heart and Vascular Provider 08/06/21 10/07/21 Roopa Almonte MD [address] [place], [place] [address] Assigned Endocrinology Provider 09/10/21 [place] [address] [facility] [place] [address] Assigned Musculoskeletal Provider 09/17/21 10/14/21 Lydia Bernstein PA-C [address] [place] [address] Assigned PCP 10/01/21 10/21/21 Rosa Maria Love CHW Community Health Worker 10/06/21 07/11/22 [place] [address] [place] [address] Assigned Musculoskeletal Provider 10/15/21 04/26/23 Paula Reza MD [address] [place] [address] Assigned PCP 10/22/21 12/23/21 Keerthi Miner APRN ON SITE SOIL EVALUATOR [address] [place] [address] Assigned Heart and Vascular Provider 10/08/21 02/10/22 Shahida Sutton APRN ON SITE SOIL EVALUATOR Assigned PCP 12/24/21 03/24/22 Porsha Michaels APRN ON SITE SOIL EVALUATOR [address] [place] [address] Assigned Heart and Vascular Provider 02/11/22 05/12/22 Paula Reza MD [address] [place] [address] Assigned PCP 03/25/22 04/07/22 Shahida Sutton APRN ON SITE SOIL EVALUATOR [address] [place] [address] Assigned PCP 04/08/22 06/30/22 Daylin Ludwig, EP [facility] [address] [place] [address] Cardiac Rehabilitation Therapist 05/16/23 Laurel Velasquez MD [address] [place] [address] Assigned Heart and Vascular Provider 05/13/22 06/30/22 Daylin Ludwig, MIKI [facility] [address] [place] [address] Cardiac Rehabilitation Therapist 06/08/22 06/09/23 Paula Reza MD [address] [facility] 200 [place] [address] Assigned PCP 07/01/22 07/07/22 Porsha Michaels APRN ON SITE SOIL EVALUATOR [address] [place] [address] Assigned Heart and Vascular Provider 07/01/22 07/07/22 Laurel Velasquez MD [address] [place] [address] Assigned Heart and Vascular Provider 07/08/22 08/04/22 Shahida Sutton APRN ON SITE SOIL EVALUATOR Assigned PCP 07/08/22 09/08/22 Marilin Montaño, ON SITE SOIL EVALUATOR [address] [place] [address] Assigned Heart and Vascular Provider 08/05/22 Esha Dewitt MD 420 [facility] 36 [place] [address] Gastroenterology 09/06/22 Heather Mosquera MD [address] [place] [address] Internal Medicine 09/06/22 Paula Reza MD [address] [place], [place] [address] Assigned PCP 09/09/22 01/05/23 Esha Dewitt MD [address] [address] Assigned Gastroenterology Provider 09/23/22 Valdo Escamilla PA-C 6363 [facility] [address] [place], [place] [address] Assigned Neuroscience Provider 09/30/22 Nohelia Abarca PA-C 2450 [place], [place] [address] Physician Hunting Guide Gastroenterology 10/03/22 Heather Mosquera MD [address] [place] [address] Assigned PCP 01/06/23 Fawad Yokr MD 909 [place], [place] [address] Assigned Musculoskeletal Provider 04/27/23 06/25/23 documented as of this encounter
--- OUTSIDE RECORDS SUMMARY | 2023-10-02 15:46 | XMS_ITS | Encounter Summary ---
Author Organization [place] Address [address] [place] [address] Care Team Providers Care Wedding Photographer Name Role Phone HermanShahida APRN DIRECTORY ASSISTANCE OPERATOR Primary Care Provi ford Unavailable Shahida Sutton APRN DIRECTORY ASSISTANCE OPERATOR Unavailable Un available Carolynn Ramon RN Unavailable [phone] Anabela Barakat APRN DIRECTORY ASSISTANCE OPERATOR Unavailable Fawad York MD Unavailable [phone] Roopa Almonte MD Unavailable [phone] Augustine Callaway MD Unavailable Maryse Burton PA-C Unavailable [phone] Marquita Starkey MD Unavailable [phone] Roopa Almonte MD Unavailable [phone] Griffin Joshi MD Unavailable Rina Magallon RN Unavailable [phone] Paula Reza MD Primary Care Provider [phone] Griffin Joshi MD Unavailable Roopa Almonte MD Unavailable [phone] Basilio Morillo DO Unavailable Lydia Bernstein PA-C Unavailable Rosa Maria Love Unavailable Augustine Callaway MD Unavailable Paula Reza MD Unavailable Keerthi Miner APRN DIRECTORY ASSISTANCE OPERATOR Unavailable [phone] Herman, Shahida Cummings SPRAY MACHINE OPERATOR DIRECTORY ASSISTANCE OPERATOR Unavailable Un available Porsha Michaels APRN DIRECTORY ASSISTANCE OPERATOR Unavailable Paula Reza MD Unavailable Herman, Shahida Cummings APRN DIRECTORY ASSISTANCE OPERATOR Unavailable Un available Daylin Ludwig Unavailable Laurel Velasquez MD Unavailable Daylin Ludwig Unavailable Paula Reza MD Unavailable Porsha Michaels APRN DIRECTORY ASSISTANCE OPERATOR Unavailable Laurel Velasquez MD Unavailable Herman, Shahida Cummings APRN DIRECTORY ASSISTANCE OPERATOR Unavailable Un available Marilin Montaño DIRECTORY ASSISTANCE OPERATOR Unavailable Esha Dewitt MD Unavailable [phone] Heather Mosquera MD Unavailable Paula Reza MD Unavailable Esha Dewitt MD Unavailable [phone] Valdo Escamilla PA-C Unavailable Nohelia Abarca PA-C Unavailable Heather Mosquera MD Unavailable Fawad York MD Unavailable [phone] Encounter Details Date Type Department Care Team (Late st Contact Info) Description 01/04/2021 MyC Medical Advice [address] [phone] Asuncion Olson Social History Tobacco Use Types [...] documented as of this encounter Care Teams Wedding Photographer Relationship Specialty Start Date End Date Shahida Sutton APRN DIRECTORY ASSISTANCE OPERATOR PCP - General Nurse Practitioner 08/17/14 08/04/21 Paula Reza MD [address] [facility] 200 [place] [address] PCP - General Internal Medicine 08/05/21 Shahida Sutton APRN DIRECTORY ASSISTANCE OPERATOR Assigned PCP 07/12/14 09/30/21 Carolynn Ramon, KASIE Personal Advocate & Liaison (PAL) 12/17/18 08/07/21 Anabela Barakat APRN DIRECTORY ASSISTANCE OPERATOR 1700 [place] [address] Assigned Heart and Vascular Provider 08/15/20 08/05/21 Fawad York MD 9[address] [place], [place] [address] Assigned Musculoskeletal Provider 12/05/20 02/05/21 Roopa Almonte MD [address] [facility] 200 [place], [place] [address] Endocrinology, Diabetes, and Metabolism 01/19/21 [place] [address] [facility] 300 [place] [address] Assigned Musculoskeletal Provider 02/06/21 09/16/21 Maryse Burton, PAAna MariaC 5200 [place] [address] Physician Viner Operator Dermatology 04/14/21 Marquita Starkey MD [address] [place], [place] [address] Internal Medicine 05/06/21 05/06/21 Roopa Almonte MD [address] [place] [address] Hospitalist Endocrinology, Diabetes, and Metabolism 05/30/21 Griffin Joshi MD [address] [facility] [address] [place] [address] Cardiovascular Disease 07/25/21 Rina Magallon, RN Lead Senior Biostatistician/Group Leader 07/29/21 07/11/22 Griffin Joshi MD [address] [place] [address] Assigned Heart and Vascular Provider 08/06/21 10/07/21 Roopa Almonte MD [address] [place] [address] 200 [place] [address] Assigned Endocrinology Provider 09/10/21 [place] [address] [facility] [place] [address] Assigned Musculoskeletal Provider 09/17/21 10/14/21 Lydia Bernstein PA-C [address] [place] [address] Assigned PCP 10/01/21 10/21/21 Rosa Maria Love CHW Community Health Worker 10/06/21 07/11/22 [place] [address] [facility] 300 [place] [address] Assigned Musculoskeletal Provider 10/15/21 04/26/23 Paula Reza MD [address] [facility] 200 [place], [place] [address] Assigned PCP 10/22/21 12/23/21 Keerthi Miner SPRAY MACHINE OPERATOR DIRECTORY ASSISTANCE OPERATOR [address] [place] [address] Assigned Heart and Vascular Provider 10/08/21 02/10/22 Shahida Sutton APRN DIRECTORY ASSISTANCE OPERATOR Assigned PCP 12/24/21 03/24/22 Porsha Michaels APRN DIRECTORY ASSISTANCE OPERATOR [address] [place] [address] Assigned Heart and Vascular Provider 02/11/22 05/12/22 Paula Reza MD [address] [facility] 200 [place] [address] Assigned PCP 03/25/22 04/07/22 Shahida Sutton SPRAY MACHINE OPERATOR DIRECTORY ASSISTANCE OPERATOR [address] [place] [address] Assigned PCP 04/08/22 06/30/22 Daylin Ludwig, MIKI [facility] [address] [place] [address] Cardiac Rehabilitation Therapist 05/16/23 Laurel Velasquez MD [address] [place] [address] Assigned Heart and Vascular Provider 05/13/22 06/30/22 Daylin Ludwig, MIKI [facility] [address] [place] [address] Cardiac Rehabilitation Therapist 06/08/22 06/09/23 Paula Reza MD [address] [place] [address] Assigned PCP 07/01/22 07/07/22 Porsha Michaels APRN DIRECTORY ASSISTANCE OPERATOR [address] [place] [address] Assigned Heart and Vascular Provider 07/01/22 07/07/22 Laurel Velasquez MD [address] [place] [address] Assigned Heart and Vascular Provider 07/08/22 08/04/22 Shahida Sutton APRN DIRECTORY ASSISTANCE OPERATOR Assigned PCP 07/08/22 09/08/22 Marilin Montaño DIRECTORY ASSISTANCE OPERATOR [address] [place] [address] Assigned Heart and Vascular Provider 08/05/22 Esha Dewitt MD [address] [place] [address] Gastroenterology 09/06/22 Heather Mosquera MD [address] [place] [address] Internal Medicine 09/06/22 Paula Reza MD [address] [place] [address] Assigned PCP 09/09/22 01/05/23 sEha Dewitt MD [address] [place] [address] Assigned Gastroenterology Provider 09/23/22 Valdo Escamilla PA-C 6363 [facility] 103 [place] [address] Assigned Neuroscience Provider 09/30/22 Nohelia Abarca PA-C 2450 [place] [address] Physician Viner Operator Gastroenterology 10/03/22 Heather Mosquera MD 6545 [facility] 150 [place] [address] Assigned PCP 01/06/23 Fawad York MD 909 [place] [address] Assigned Musculoskeletal Provider 04/27/23 06/25/23 documented as of this encounter
--- OUTSIDE RECORDS SUMMARY | 2023-10-02 15:46 | XMS_ITS | Encounter Summary ---
Author Organization [place] Address [address] [place] [address] Care Team Providers Care Front Office Attendant Name Role Phone HermanShahida APRN DENTAL LABORATORY TECHNICIAN APPRENTICE Primary Care Provi ford Unavailable Shahida Sutton APRN DENTAL LABORATORY TECHNICIAN APPRENTICE Unavailable Un available Carolynn Ramon RN Unavailable [phone] Anabela Barakat APRN DENTAL LABORATORY TECHNICIAN APPRENTICE Unavailable Fawad York MD Unavailable [phone] Roopa Almonte MD Unavailable [phone] Augustine Callaway MD Unavailable Maryse Burton PA-C Unavailable [phone] Marquita Starkey MD Unavailable [phone] Roopa Almonte MD Unavailable [phone] Griffin Joshi MD Unavailable Rina Magallon RN Unavailable [phone] Paula Reza MD Primary Care Provider [phone] Griffin Joshi MD Unavailable Roopa Almonte MD Unavailable [phone] Basilio Morillo DO Unavailable Lydia Bernstein PA-C Unavailable Rosa Maria Love Unavailable Augustine Callaway MD Unavailable Paula Reza MD Unavailable Keerthi Miner APRN DENTAL LABORATORY TECHNICIAN APPRENTICE Unavailable [phone] Herman, Shahida Cummings STEEL LAYER DENTAL LABORATORY TECHNICIAN APPRENTICE Unavailable Un available Porsha Michaels APRN DENTAL LABORATORY TECHNICIAN APPRENTICE Unavailable Paula Reza MD Unavailable Herman, Shahida Cummings APRN DENTAL LABORATORY TECHNICIAN APPRENTICE Unavailable Un available Daylin Ludwig Unavailable Laurel Velasquez MD Unavailable Daylin Ludwig Unavailable Paula Reza MD Unavailable Porsha Michaels APRN DENTAL LABORATORY TECHNICIAN APPRENTICE Unavailable Laurel Velasquez MD Unavailable Herman, Shahida Cummings APRN DENTAL LABORATORY TECHNICIAN APPRENTICE Unavailable Un available Marilin Montaño DENTAL LABORATORY TECHNICIAN APPRENTICE Unavailable Esha Dewitt MD Unavailable [phone] Heather Mosquera MD Unavailable Puala Reza MD Unavailable Esha Dewitt MD Unavailable [phone] Valdo Escamilla PA-C Unavailable Nohelia Abarca PA-C Unavailable [phone] Heather Mosquera MD Unavailable Fawad York MD Unavailable [phone] Encounter Details Date Type Department Care Team (Late st Contact Info) Description 12/21/2020 MyC Medical Advice [address] [phone] Monica Suarez Social History Tobacco [...] documented as of this encounter Care Teams Front Office Attendant Relationship Specialty Start Date End Date Shahida Sutton APRN DENTAL LABORATORY TECHNICIAN APPRENTICE PCP - General Nurse Practitioner 08/17/14 08/04/21 Paula Reza MD [address] [facility] 200 [place] [address] PCP - General Internal Medicine 08/05/21 Shahida Sutton APRN DENTAL LABORATORY TECHNICIAN APPRENTICE Assigned PCP 07/12/14 09/30/21 Carolynn Ramon, KASIE Personal Advocate & Liaison (PAL) 12/17/18 08/07/21 Anabela Barakat APRN DENTAL LABORATORY TECHNICIAN APPRENTICE 1700 [place] [address] Assigned Heart and Vascular Provider 08/15/20 08/05/21 Fawad York MD 909 [place], [place] [address] Assigned Musculoskeletal Provider 12/05/20 02/05/21 Roopa Almonte MD [address] [place] [address] Endocrinology, Diabetes, and Metabolism 01/19/21 [place] [address] [facility] 300 [place] [address] Assigned Musculoskeletal Provider 02/06/21 09/16/21 Maryse Burton, PAAna MariaC 5200 [place] [address] Physician Retail And Promotions Coordinator Dermatology 04/14/21 Marquita Starkey MD [address] [place] [address] Internal Medicine 05/06/21 05/06/21 Roopa Almonte MD [address] [place] [address] Hospitalist Endocrinology, Diabetes, and Metabolism 05/30/21 Griffin Joshi MD [address] [facility] [address] [place] [address] Cardiovascular Disease 07/25/21 Rina Magallon, RN Lead Hand Sign Writer 07/29/21 07/11/22 Griffin Joshi MD [address] [place] [address] Assigned Heart and Vascular Provider 08/06/21 10/07/21 Roopa Almonte MD [address] [place] [address] 200 [address] Assigned Endocrinology Provider 09/10/21 [place] [address] [facility] [place] [address] Assigned Musculoskeletal Provider 09/17/21 10/14/21 Lydia Bernstein PA-C [address] [facility] 150 [place] [address] Assigned PCP 10/01/21 10/21/21 Rosa Maria Love CHW Community Health Worker 10/06/21 07/11/22 [place] [address] [facility] 300 [place] [address] Assigned Musculoskeletal Provider 10/15/21 04/26/23 Paula Reza MD [address] [facility] 200 [place], [place] [address] Assigned PCP 10/22/21 12/23/21 Keerthi Miner APRN DENTAL LABORATORY TECHNICIAN APPRENTICE [address] [place] [address] Assigned Heart and Vascular Provider 10/08/21 02/10/22 Shahida Sutton APRN DENTAL LABORATORY TECHNICIAN APPRENTICE Assigned PCP 12/24/21 03/24/22 Porsha Michaels APRN DENTAL LABORATORY TECHNICIAN APPRENTICE [address] [place] [address] Assigned Heart and Vascular Provider 02/11/22 05/12/22 Paula Reza MD [address] E [facility] 200 [place] [address] Assigned PCP 03/25/22 04/07/22 Shahida Sutton STEEL LAYER DENTAL LABORATORY TECHNICIAN APPRENTICE [address] [place] [address] Assigned PCP 04/08/22 06/30/22 Daylin Ludwig, MIKI [facility] [address] [place] [address] Cardiac Rehabilitation Therapist 05/16/23 Laruel Velasquez MD [address] [place] [address] Assigned Heart and Vascular Provider 05/13/22 06/30/22 Daylin Ludwig, MIKI [facility] [address] [place] [address] Cardiac Rehabilitation Therapist 06/08/22 06/09/23 Paula Reza MD [address] [place] [address] Assigned PCP 07/01/22 07/07/22 Porsha Michaels APRN DENTAL LABORATORY TECHNICIAN APPRENTICE [address] [place] [address] Assigned Heart and Vascular Provider 07/01/22 07/07/22 Laurel Velasquez MD [address] [place] [address] Assigned Heart and Vascular Provider 07/08/22 08/04/22 Shahida Sutton APRN DENTAL LABORATORY TECHNICIAN APPRENTICE Assigned PCP 07/08/22 09/08/22 Marilin Montaño, DENTAL LABORATORY TECHNICIAN APPRENTICE [address] [place] [address] Assigned Heart and Vascular Provider 08/05/22 Esha Dewitt MD [address] [place] [address] Gastroenterology 09/06/22 Heather Mosquera MD [address] [place] [address] Internal Medicine 09/06/22 Paula Reza MD [address] [place] [address] Assigned PCP 09/09/22 01/05/23 Esha Dewitt MD [address] [place] [address] Assigned Gastroenterology Provider 09/23/22 Valdo Escamilla PA-C 6363 [facility] 103 [place] [address] Assigned Neuroscience Provider 09/30/22 Nohelia Abarca PA-C 2450 [place] [address] Physician Retail And Promotions Coordinator Gastroenterology 10/03/22 Heather Mosquera MD 6545 [facility] 150 [place] [address] Assigned PCP 01/06/23 Fawad York MD 909 [place] [address] Assigned Musculoskeletal Provider 04/27/23 06/25/23 documented as of this encounter
--- OUTSIDE RECORDS SUMMARY | 2023-10-02 15:46 | XMS_ITS | Encounter Summary ---
Author Organization [facility] Address [address] [place] [address] Care Team Providers Care Cassandra Consultant Name Role Phone HermanShahida APRN DAIRY WORKER Primary Care Provi ford Unavailable Shahida Sutton APRN DAIRY WORKER Unavailable Un available Carolynn Ramon RN Unavailable [phone] Anabela Barakat APRN DAIRY WORKER Unavailable Fawad York MD Unavailable [phone] Roopa Almonte MD Unavailable [phone] Augustine Callaway MD Unavailable Maryse Burton PA-C Unavailable [phone] Marquita Starkey MD Unavailable [phone] Roopa Almonte MD Unavailable [phone] Griffin Joshi MD Unavailable Rina Magallon RN Unavailable [phone] Paula Reza MD Primary Care Provider [phone] Griffin Joshi MD Unavailable Roopa Almonte MD Unavailable [phone] Basilio Morillo DO Unavailable Lydia Bernstein PA-C Unavailable Rosa Maria Love Unavailable Augustine Callaway MD Unavailable Paula Reza MD Unavailable Keerthi Miner APRN DAIRY WORKER Unavailable [phone] Herman, Shahida Cummings LOAN AND CREDIT MANAGER DAIRY WORKER Unavailable Un available Porsha Michaels APRN DAIRY WORKER Unavailable Paula eRza MD Unavailable Herman, Shahida Cummings APRN DAIRY WORKER Unavailable Un available Daylin Ludwig Unavailable Laurel Velasquez MD Unavailable Daylin Ludwig Unavailable Paula Reza MD Unavailable Porsha Michaels APRN DAIRY WORKER Unavailable Laurel Velasquez MD Unavailable Herman, Shahida Cummings APRN DAIRY WORKER Unavailable Un available Marilin Montaño DAIRY WORKER Unavailable Esha Dewitt MD Unavailable [phone] Heather Mosquera MD Unavailable Paula Reza MD Unavailable Esha Dewitt MD Unavailable [phone] Valdo Escamilla PA-C Unavailable Nohelia Abarca PA-C Unavailable [phone] Heather Mosquera MD Unavailable Fawad York MD Unavailable Encounter Details Date Type Department Care Team (Late st Contact Info) Description 12/28/2020 MyC Medical Advice [address] [phone] Carolynn Ramon RN Social History Tobacco Use [...] documented as of this encounter Care Teams Cassandra Consultant Relationship Specialty Start Date End Date Shahida Sutton APRN DAIRY WORKER PCP - General Nurse Practitioner 08/17/14 08/04/21 Paula Reza MD [address] [facility] 200 [place] [address] PCP - General Internal Medicine 08/05/21 Shahida Sutton, LOAN AND CREDIT MANAGER DAIRY WORKER Assigned PCP 07/12/14 09/30/21 Carolynn Ramon RN Personal Advocate & Liaison (PAL) 12/17/18 08/07/21 Anabela Barakat APRN DAIRY WORKER 1700 [place] [address] Assigned Heart and Vascular Provider 08/15/20 08/05/21 Fawad York MD 909 [place] [address] Assigned Musculoskeletal Provider 12/05/20 02/05/21 Roopa Almonte MD [address] [employer] [address] [address] Endocrinology, Diabetes, and Metabolism 01/19/21 [place] [address] [address] Assigned Musculoskeletal Provider 02/06/21 09/16/21 Mrayse Burton, PA-C [address] [place] [address] Physician Sales And In Home Delivery Specialist Dermatology 04/14/21 Marquita Starkey MD [address] [facility] 200 [place] [address] Internal Medicine 05/06/21 05/06/21 Roopa Almonte MD [address] [facility] 200 [place] [address] Hospitalist Endocrinology, Diabetes, and Metabolism 05/30/21 Griffin Joshi MD [address] [facility] [address] [place] [address] Cardiovascular Disease 07/25/21 Rina Magallon, RN Lead Line Assembly Utility Worker 07/29/21 07/11/22 Griffin Joshi MD [address] [address] [place] [address] Assigned Heart and Vascular Provider 08/06/21 10/07/21 Roopa Almonte MD [address] [facility] 200 [place], [place] [address] Assigned Endocrinology Provider 09/10/21 [place] [address] [employer] [facility] [place] [address] Assigned Musculoskeletal Provider 09/17/21 10/14/21 Lydia Bernstein PA-C [address] [facility] 150 [place] [address] Assigned PCP 10/01/21 10/21/21 Rosa Maria Love CHW Community Health Worker 10/06/21 07/11/22 [place] [address] [address] [facility] 300 [place] [address] Assigned Musculoskeletal Provider 10/15/21 04/26/23 Paula Reza MD [address] [place] [address] Assigned PCP 10/22/21 12/23/21 Keerthi Miner LOAN AND CREDIT MANAGER DAIRY WORKER [address] [place] [address] Assigned Heart and Vascular Provider 10/08/21 02/10/22 Shahida Sutton LOAN AND CREDIT MANAGER DAIRY WORKER Assigned PCP 12/24/21 03/24/22 Porsha Michaels LOAN AND CREDIT MANAGER DAIRY WORKER [address] [place] [address] Assigned Heart and Vascular Provider 02/11/22 05/12/22 Paula Reza MD [address] [place] [address] Assigned PCP 03/25/22 04/07/22 Shahida Sutton APRN DAIRY WORKER [address] [place] [address] Assigned PCP 04/08/22 06/30/22 Daylin Ludwig, EP [facility] [address] [place] [address] Cardiac Rehabilitation Therapist 05/16/23 Laurel Velasquez MD [address] [place] [address] Assigned Heart and Vascular Provider 05/13/22 06/30/22 Daylin Ludwig, EP [facility] [address] [place] [address] Cardiac Rehabilitation Therapist 06/08/22 06/09/23 Paula Reza MD [address] [place] [address] Assigned PCP 07/01/22 07/07/22 Porsha Michaels APRN DAIRY WORKER [address] [place] [address] Assigned Heart and Vascular Provider 07/01/22 07/07/22 Laurel Velasquez MD [address] [place] [address] Assigned Heart and Vascular Provider 07/08/22 08/04/22 Shahida Sutton APRN DAIRY WORKER Assigned PCP 07/08/22 09/08/22 Marilin Montaño, DAIRY WORKER [address] [place] [address] Assigned Heart and Vascular Provider 08/05/22 Esha Dewitt MD [address] [place] [address] 36 [place], [place] [address] Gastroenterology 09/06/22 Heather Mosquera MD [address] [place] [address] Internal Medicine 09/06/22 Paula Reza MD [address] [place] [address] Assigned PCP 09/09/22 01/05/23 Esha Dewitt MD 420 [facility] 36 [place], [place] [address] Assigned Gastroenterology Provider 09/23/22 Valdo Escamilla PA-C [address] [facility] [address] [place], [place] [address] Assigned Neuroscience Provider 09/30/22 Nohelia Abarca PA-C [address] [place], [place] [address] Physician Sales And In Home Delivery Specialist Gastroenterology 10/03/22 Heather Mosquera MD [address] [facility] 150 [place], [place] [address] Assigned PCP 01/06/23 Fawad York MD 9[address] [place], [place] [address] Assigned Musculoskeletal Provider 04/27/23 06/25/23 documented as of this encounter
--- OUTSIDE RECORDS SUMMARY | 2023-10-02 15:46 | XMS_ITS | Encounter Summary ---
Author Organization [facility] Address [address] [place] [address] Care Team Providers Care Head Porter Name Role Phone HermanShahida APRN MANAGER OF INVESTIGATIONS Primary Care Provi ford Unavailable Shahida Sutton APRN MANAGER OF INVESTIGATIONS Unavailable Un available Carolynn Ramon RN Unavailable [phone] Anabela Barakat APRN MANAGER OF INVESTIGATIONS Unavailable Basilio Morillo DO Unavailable Fawad York MD Unavailable [phone] Roopa Almonte MD Unavailable [phone] Augustine Callaway MD Unavailable Maryse Burton PA-C Unavailable [phone] Marquita Starkey MD Unavailable [phone] Roopa Almonte MD Unavailable [phone] Griffin Joshi MD Unavailable Rina Magallon RN Unavailable [phone] Paula Reza MD Primary Care Provider [phone] Griffin Joshi MD Unavailable Roopa Almonte MD Unavailable [phone] IliaBasilio DO Unavailable [phone] Lydia Bernstein PA-C Unavailable KateRosa Maria RACHELL Unavailable [phone] Augustine Callaway MD Unavailable Paula Reza MD Unavailable Keerthi Miner APRN MANAGER OF INVESTIGATIONS Unavailable [phone] Herman, Shahida Cummings APRN MANAGER OF INVESTIGATIONS Unavailable Un available Porsha Michaels APRN MANAGER OF INVESTIGATIONS Unavailable [phone] Paula Reza MD Unavailable Herman, Shahida Cummings APRN MANAGER OF INVESTIGATIONS Unavailable Un available Daylin Ludwig Unavailable [phone] Laurel Velasquez MD Unavailable [phone] FiDaylin sullivan EP Unavailable [phone] Paula Reza MD Unavailable Porsha Michaels APRN MANAGER OF INVESTIGATIONS Unavailable [phone] Laurel Velasquez MD Unavailable Herman, Shahida Cummings APRN MANAGER OF INVESTIGATIONS Unavailable Un available Marilin Montaño MANAGER OF INVESTIGATIONS Unavailable [phone] Esha Dewitt MD Unavailable [phone] Heather Mosquera MD Unavailable [phone] Paula Reza MD Unavailable Esha eDwitt MD Unavailable [phone] Valdo Escamilla PA-C Unavailable [phone] Nohelia Abarca-C Unavailable [phone] Heather Mosquera MD Unavailable [phone] Fawad York MD Unavailable Reason for Visit * Reason Comments Medication Refill Encounter Details Date Type Department Care Team (Late st Contact Info) Description 11/23/[address] [phone] Shahida Sutton APRN CNP Medication [...] documented as of this encounter Care Teams Head Porter Relationship Specialty Start Date End Date Shahida Sutton APRN CNP PCP - General Nurse Practitioner 08/17/14 08/04/21 Paula Reza MD [address] [facility] 200 [place] [address] PCP - General Internal Medicine 08/05/21 Shahida Sutton, APERTURE MASK ETCHER MANAGER OF INVESTIGATIONS Assigned PCP 07/12/14 09/30/21 Carolynn Ramon, KASIE Personal Advocate & Liaison (PAL) 12/17/18 08/07/21 Anabela Barakat APRN MANAGER OF INVESTIGATIONS 17[address] [place] [address] Assigned Heart and Vascular Provider 08/15/20 08/05/21 [place] [address] [place] [address] Assigned Musculoskeletal Provider 11/14/20 12/04/20 Fawad York MD 9[address] [place], [place] [address] Assigned Musculoskeletal Provider 12/05/20 02/05/21 Roopa Almonte MD [address] [facility] 200 [place] [address] Endocrinology, Diabetes, and Metabolism 01/19/21 [place] [address] [facility] 300 [place] [address] Assigned Musculoskeletal Provider 02/06/21 09/16/21 Maryse Burton PA-C 5200 [place] [address] Physician Bracer Dermatology 04/14/21 Marquita Starkey MD [address] [facility] 200 [place] [address] Internal Medicine 05/06/21 05/06/21 Roopa Almonte MD [address] [facility] 200 [place] [address] Hospitalist Endocrinology, Diabetes, and Metabolism 05/30/21 Griffin Joshi MD [address] [place] [address] Cardiovascular Disease 07/25/21 Rina Magallon RN Lead Cooperative Extension Agent 07/29/21 07/11/22 Griffin Joshi MD [address] [place] [address] Assigned Heart and Vascular Provider 08/06/21 10/07/21 Roopa Almonte MD [address] [place] [address] 200 [place], [place] [address] Assigned Endocrinology Provider 09/10/21 [place] [address] [facility] [place] [address] Assigned Musculoskeletal Provider 09/17/21 10/14/21 Lydia Bernstein PA-C [address] [place] [address] Assigned PCP 10/01/21 10/21/21 Rosa Maria Love CHW Community Health Worker 10/06/21 07/11/22 [place] [address] [place] [address] Assigned Musculoskeletal Provider 10/15/21 04/26/23 Paula Reza MD [address] [place] [address] Assigned PCP 10/22/21 12/23/21 Keerthi Miner APRN MANAGER OF INVESTIGATIONS [address] [place] [address] Assigned Heart and Vascular Provider 10/08/21 02/10/22 Shahida Sutton APRN MANAGER OF INVESTIGATIONS Assigned PCP 12/24/21 03/24/22 Porsha Michaels APRN MANAGER OF INVESTIGATIONS [address] [place] [address] Assigned Heart and Vascular Provider 02/11/22 05/12/22 Paula Reza MD [address] [place] [address] Assigned PCP 03/25/22 04/07/22 Shahida Sutton APRN MANAGER OF INVESTIGATIONS [address] [place] [address] Assigned PCP 04/08/22 06/30/22 Daylin Ludwig EP [facility] [address] [place] [address] Cardiac Rehabilitation Therapist 05/16/23 Laurel Velasquez MD [address] [place] [address] Assigned Heart and Vascular Provider 05/13/22 06/30/22 Daylin Luwdig EP [facility] [address] [place] [address] Cardiac Rehabilitation Therapist 06/08/22 06/09/23 Paula Reza MD [address] 200 [place] [address] Assigned PCP 07/01/22 07/07/22 Porsha Michaels APRN MANAGER OF INVESTIGATIONS [address] [place] [address] Assigned Heart and Vascular Provider 07/01/22 07/07/22 Laurel Velasquez MD [address] [place] [address] Assigned Heart and Vascular Provider 07/08/22 08/04/22 Shahida Sutton APRN MANAGER OF INVESTIGATIONS Assigned PCP 07/08/22 09/08/22 Marilin Montaño, MANAGER OF INVESTIGATIONS [address] [place] [address] Assigned Heart and Vascular Provider 08/05/22 Esha Dewitt MD [address] [place] [address] 36 [place], [place] [address] Gastroenterology 09/06/22 Heather Mosquera MD [address] [place] [address] Internal Medicine 09/06/22 Paula Reza MD [address] [facility] 200 [place], [place] [address] Assigned PCP 09/09/22 01/05/23 Esha Dewitt MD 420 [facility] 36 [place], [place] [address] Assigned Gastroenterology Provider 09/23/22 Valdo Escamilla PA-C [address] [facility] [address] [place], [place] [address] Assigned Neuroscience Provider 09/30/22 Nohelia Abarca PA-C [address] [place], [place] [address] Physician Bracer Gastroenterology 10/03/22 Heather Mosquera MD [address] [facility] 150 [place], [place] [address] Assigned PCP 01/06/23 Fawad York MD [address] [place], [place] [address] Assigned Musculoskeletal Provider 04/27/23 06/25/23 documented as of this encounter
--- OUTSIDE RECORDS SUMMARY | 2023-10-02 15:46 | XMS_ITS | Encounter Summary ---
Author Organization [facility] Address [address] [place] [address] Care Team Providers Care Terminal Block Assembler Name Role Phone HermanShahida huerta APRN SPRING TIER Primary Care Provi ford Unavailable Shahida Sutton APRN SPRING TIER Unavailable Un available Carolynn Ramon RN Unavailable Anabela Barakat APRN SPRING TIER Unavailable Nima France PA-C Unavailable [phone] Basilio Morillo DO Unavailable Fawad York MD Unavailable Roopa Almonte MD Unavailable [phone] Augustine Callaway MD Unavailable Maryse Burton PA-C Unavailable [phone] Marquita Starkey MD Unavailable Roopa Almonte MD Unavailable Griffin Joshi MD Unavailable Rina Magallon RN Unavailable Paula Reza MD Primary Care Provider Griffin Joshi MD Unavailable Roopa Almonte MD Unavailable Ilia Basilio Naik Unavailable Lydia Bernstein PA-C Unavailable Kate Rosa Maria CHW Unavailable Augustine Callaway MD Unavailable Paula Reza MD Unavailable Keerthi Miner APRN SPRING TIER Unavailable Herman, Shahida Cummings APRN SPRING TIER Unavailable Un available Porsha Michaels APRN SPRING TIER Unavailable [phone] Paula Reza MD Unavailable Herman, Shahida Cummings APRN SPRING TIER Unavailable Un available Daylin Ludwig Unavailable [phone] Laurel Velasquez MD Unavailable Daylin Ludwig Unavailable [phone] Paula Reza MD Unavailable Porsha Michaels APRN SPRING TIER Unavailable [phone] Laurel Velasquez MD Unavailable Herman, Shahida Cummings APRN SPRING TIER Unavailable Un available Marilin Montaño SPRING TIER Unavailable [phone] Esha Dewitt MD Unavailable [phone] Heather Mosquera MD Unavailable Paula Reza MD Unavailable Esha Dewitt MD Unavailable [phone] Valdo Escamilla PA-C Unavailable [phone] Nohelia Abarca PA-C Unavailable [phone] Heather Mosquera MD Unavailable Fawad York MD [facility] [phone] Encounter Details Date Type Department Care Team (Late st Contact Info) Description 09/28/2020 MyC Medical Advice [address] [phone] Carolynn Ramon, KASIE Social History Tobacco Use [...] documented as of this encounter Care Teams Terminal Block Assembler Relationship Specialty Start Date End Date Shahida Sutton APRN SPRING TIER PCP - General Nurse Practitioner 08/17/14 08/04/21 Paula Reza MD [address] [facility] 200 [place] [address] PCP - General Internal Medicine 08/05/21 Shahida Sutton, SENIOR ANALYST PROGRAMMER SPRING TIER Assigned PCP 07/12/14 09/30/21 Carolynn Ramon, KASIE Personal Advocate & Liaison (PAL) 12/17/18 08/07/21 Anabela Barakat, SENIOR ANALYST PROGRAMMER SPRING TIER 1700 [place] [address] Assigned Heart and Vascular Provider 08/15/20 08/05/21 Nima France PA-C 65[address] [facility] 450 [place] [address] Assigned Musculoskeletal Provider 08/22/20 11/13/20 [place] [address] [place] [address] Assigned Musculoskeletal Provider 11/14/20 12/04/20 Fawad York MD 909 [place], [place] [address] Assigned Musculoskeletal Provider 12/05/20 02/05/21 Roopa Almonte MD [address] [facility] 200 [place] [address] Endocrinology, Diabetes, and Metabolism 01/19/21 [place] [address] [facility] 300 [place] [address] Assigned Musculoskeletal Provider 02/06/21 09/16/21 Maryse Burton PA-C 5200 [place] [address] Physician Tribal Delegate Dermatology 04/14/21 Marquita Starkey MD [address] [facility] 200 [place] [address] Internal Medicine 05/06/21 05/06/21 Roopa Almotne MD [address] [facility] 200 [place] [address] Hospitalist Endocrinology, Diabetes, and Metabolism 05/30/21 Griffin Joshi MD [address] [place] [address] Cardiovascular Disease 07/25/21 Rina Magallon RN Lead Product Marketing Director 07/29/21 07/11/22 Griffin Joshi MD [address] [place] [address] [place] [address] Assigned Heart and Vascular Provider 08/06/21 10/07/21 Roopa Almonte MD [address] [facility] 200 [place], [place] [address] Assigned Endocrinology Provider 09/10/21 [place] [address] [facility] [place] [address] Assigned Musculoskeletal Provider 09/17/21 10/14/21 Lydia Bernstein PA-C [address] [place] [id number] Assigned PCP 10/01/21 10/21/21 Klarissa Lovesay, W Community Health Worker 10/06/21 07/11/22 [place] [address] [place] [address] Assigned Musculoskeletal Provider 10/15/21 04/26/23 Paula Reza MD [address] [place] [address] Assigned PCP 10/22/21 12/23/21 Keerthi Miner APRN SPRING TIER [address] [place] [address] Assigned Heart and Vascular Provider 10/08/21 02/10/22 Shahida Sutton APRN SPRING TIER Assigned PCP 12/24/21 03/24/22 Porsha Michaesl APRN SPRING TIER [address] [place] [address] Assigned Heart and Vascular Provider 02/11/22 05/12/22 Paula Reza MD [address] [place] [address] Assigned PCP 03/25/22 04/07/22 Shahida Sutton APRN SPRING TIER [address] [place] [address] Assigned PCP 04/08/22 06/30/22 Daylin Ludwig EP [facility] [address] [place] [address] Cardiac Rehabilitation Therapist 05/16/23 Laurel Velasquez MD [address] [place] [address]77[address] Assigned Heart and Vascular Provider 05/13/22 06/30/22 Daylin Ludwig EP [facility] [address] [place] [address] Cardiac Rehabilitation Therapist 06/08/22 06/09/23 Paula Reza MD [address] [facility] 200 [place], [place] [address] Assigned PCP 07/01/22 07/07/22 Porsha Michaels APRN SPRING TIER [address] [place] [address] Assigned Heart and Vascular Provider 07/01/22 07/07/22 Laurel Velasquez MD [address] [place] [address] Assigned Heart and Vascular Provider 07/08/22 08/04/22 Shahida Sutton, SENIOR ANALYST PROGRAMMER SPRING TIER Assigned PCP 07/08/22 09/08/22 Marilin Montaño, SPRING TIER [address] [place] [address] Assigned Heart and Vascular Provider 08/05/22 Esha Dewitt MD [address] [place] [address] 36 [place], [place] [address] Gastroenterology 09/06/22 Heather Mosquera MD [address] [place] [address] Internal Medicine 09/06/22 Paula Reza MD [address] [place] [address] Assigned PCP 09/09/22 01/05/23 Esha Dewtit MD 420 [facility] 36 [place], [place] [address] Assigned Gastroenterology Provider 09/23/22 Valdo Escamilla PA-C [address] [facility] [address] [place], [place] [address] Assigned Neuroscience Provider 09/30/22 Nohelia Abarca PA-C 2450 [place], [place] 3[address] Physician Tribal Delegate Gastroenterology 10/03/22 Heather Mosquera MD [address] [place] [address] Assigned PCP 01/06/23 Fawad York MD 909 [place], [place] [address] Assigned Musculoskeletal Provider 04/27/23 06/25/23 documented as of this encounter
--- OUTSIDE RECORDS SUMMARY | 2023-10-02 15:46 | XMS_ITS | Encounter Summary ---
Author Organization [facility] Address [address] [place] [address] Care Team Providers Care Rivet Sticker Name Role Phone HermanShahida huerta APRN ALTERATION WORKER Primary Care Provi ford Unavailable Shahida Sutton APRN ALTERATION WORKER Unavailable Un available Carolynn Ramon RN Unavailable [phone] Anabela Barakat APRN ALTERATION WORKER Unavailable Nima France PA-C Unavailable [phone] Basilio Morillo DO Unavailable Fawad York MD Unavailable [phone] Roopa Almonte MD Unavailable [phone] Augustine Callaway MD Unavailable Maryse Burton PA-C Unavailable [phone] Marquita Starkey MD Unavailable Roopa Almonte MD Unavailable Griffin Joshi MD Unavailable Rina Magallon RN Unavailable [phone] Paula Reza MD Primary Care Provider [phone] Griffin Joshi MD Unavailable Roopa Almonte MD Unavailable Ilia Basilio Naik Unavailable Lydia Bernstein PA-C Unavailable Kate Rosa Maria CHW Unavailable Augustine Callaway MD Unavailable Paula Reza MD Unavailable Keerthi Miner APRN ALTERATION WORKER Unavailable Herman, Shahida Cummings APRN ALTERATION WORKER Unavailable Un available Porsha Michaels APRN ALTERATION WORKER Unavailable [phone] Paula Reza MD Unavailable Herman, Shahida Cummings APRN ALTERATION WORKER Unavailable Un available Daylin Ludwig Unavailable [phone] Laurel Velasquez MD Unavailable Daylin Ludwig Unavailable [phone] Paula Reza MD Unavailable Porsha Michaels APRN ALTERATION WORKER Unavailable [phone] Laurel Velasquez MD Unavailable Herman, Shahida Cummings APRN ALTERATION WORKER Unavailable Un available Marilin Montaño ALTERATION WORKER Unavailable [phone] Esha Dewitt MD Unavailable Heather Mosquera MD Unavailable Paula Reza MD Unavailable Esha Dewitt MD Unavailable [phone] Valdo Escamilla PA-C Unavailable [phone] Nohelia Abarca PA-C Unavailable [phone] Heather Mosquera MD Unavailable Fawad York MD [facility] Encounter Details Date Type Department Care Team (Late st Contact Info) Description 11/09/2020 MyC Medical Advice [address] [phone] Hiral Curran, OIL TESTER Social History Tobacco Use Types Packs/Day Years [...] documented as of this encounter Care Teams Rivet Sticker Relationship Specialty Start Date End Date Shahida Sutton APRN ALTERATION WORKER PCP - General Nurse Practitioner 08/17/14 08/04/21 Paula Reza MD [address] [place] [address] PCP - General Internal Medicine 08/05/21 Shahida Sutton, GRANT MANAGER ALTERATION WORKER Assigned PCP 07/12/14 09/30/21 Carolynn Ramon, KASIE Personal Advocate & Liaison (PAL) 12/17/18 08/07/21 Anabela Barakat, GRANT MANAGER ALTERATION WORKER 1700 [place] [address] Assigned Heart and Vascular Provider 08/15/20 08/05/21 Nima France PA-C 6545 [facility] 450 [place] [address] Assigned Musculoskeletal Provider 08/22/20 11/13/20 [place] [address] Pending sale to [facility] [place], [place] [address] Assigned Musculoskeletal Provider 11/14/20 12/04/20 Fawad York MD [address] [place], [place] [address] Assigned Musculoskeletal Provider 12/05/20 02/05/21 Roopa Almonte MD [address] [facility] [address] [place] [address] Endocrinology, Diabetes, and Metabolism 01/19/21 [place] [address] [place] [address] Assigned Musculoskeletal Provider 02/06/21 09/16/21 Maryse Burton PA-C [address] [facility] [address] Physician Lithograph Press Operator Dermatology 04/14/21 Marquita Starkey MD [address] [facility] [address] 200 [place], [place] [address] Internal Medicine 05/06/21 05/06/21 Roopa Almonte MD [address] [facility] 200 [place], [place] [address] Hospitalist Endocrinology, Diabetes, and Metabolism 05/30/21 Griffin Joshi MD [address] [place] [address] Cardiovascular Disease 07/25/21 Rina Magallon, RN Lead Manager Business Development Hospice 07/29/21 07/11/22 Griffin Joshi MD [address] [place] [address] Assigned Heart and Vascular Provider 08/06/21 10/07/21 Roopa Almonte MD [address] [place], [place] [address] Assigned Endocrinology Provider 09/10/21 [place] [address] [facility] [place] [address] Assigned Musculoskeletal Provider 09/17/21 10/14/21 Lydia Bernstein PA-C [address] [place] [address] Assigned PCP 10/01/21 10/21/21 Rosa Maria Love CHW Community Health Worker 10/06/21 07/11/22 [place] [address] [place] [address] Assigned Musculoskeletal Provider 10/15/21 04/26/23 Paula Reza MD [address] [place], [place] [address] Assigned PCP 10/22/21 12/23/21 Keerthi Miner APRN ALTERATION WORKER [address] [place] [address] Assigned Heart and Vascular Provider 10/08/21 02/10/22 Shahida Sutton APRN ALTERATION WORKER Assigned PCP 12/24/21 03/24/22 Porsha Michaels APRN ALTERATION WORKER [address] [place] [address] Assigned Heart and Vascular Provider 02/11/22 05/12/22 Paula Reza MD [address] [place] [address] Assigned PCP 03/25/22 04/07/22 Shahida Sutton APRN ALTERATION WORKER [address] [place] [address] Assigned PCP 04/08/22 06/30/22 Daylin Ludwig EP [facility] [address] [place] [address] Cardiac Rehabilitation Therapist 05/16/23 Laurel Velasquez MD [address] [place] [address] Assigned Heart and Vascular Provider 05/13/22 06/30/22 Daylin Ludwig EP [facility] [address] [place] [address] Cardiac Rehabilitation Therapist 06/08/22 06/09/23 Paula Reaz MD [address] [facility] 200 [place], [place] [address] Assigned PCP 07/01/22 07/07/22 Porsha Michaels APRN ALTERATION WORKER [address] [place] [address] Assigned Heart and Vascular Provider 07/01/22 07/07/22 Laurel Velasquez MD [address] [place] [address] Assigned Heart and Vascular Provider 07/08/22 08/04/22 Shahida Sutton APRN ALTERATION WORKER Assigned PCP 07/08/22 09/08/22 Marilin Montaño, ALTERATION WORKER [address] [place] [address] Assigned Heart and Vascular Provider 08/05/22 Esha Dewitt MD [address] [address] Gastroenterology 09/06/22 Heather Mosquera MD 6545 [facility] 150 [place] [address] Internal Medicine 09/06/22 Paula Reza MD [address] [place] [address] Assigned PCP 09/09/22 01/05/23 Esha Dewitt MD [address] [place] [address] Assigned Gastroenterology Provider 09/23/22 Valdo Escamilla PA-C [address] [facility] 103 [place] [address] Assigned Neuroscience Provider 09/30/22 Nohelia Abarca PA-C 2450 [place] [address] Physician Lithograph Press Operator Gastroenterology 10/03/22 Heather Mosquera MD 6545 [facility] 150 [place] [address] Assigned PCP 01/06/23 Fawad York MD [address] [place], [place] [address] Assigned Musculoskeletal Provider 04/27/23 06/25/23 documented as of this encounter
--- OUTSIDE RECORDS SUMMARY | 2023-10-02 15:46 | XMS_ITS | Encounter Summary ---
Author Organization [facility] Address [address] [place] [address] Care Team Providers Care Line And Frame Poler Name Role Phone HermanShahida huerta APRN SKI TOW OPERATOR Primary Care Provi ford Unavailable Shahida Sutton APRN SKI TOW OPERATOR Unavailable Un available Carolynn Ramon RN Unavailable Anabela Barakat APRN SKI TOW OPERATOR Unavailable Nima France PA-C Unavailable [phone] Basilio Morillo DO Unavailable Fawad York MD Unavailable [phone] Roopa Almonte MD Unavailable Augustine Callaway MD Unavailable Maryse Burton PA-C Unavailable [phone] Marquita Starkey MD Unavailable Roopa Almonte MD Unavailable Griffin Joshi MD Unavailable Rina Magallon RN Unavailable Paula Reza MD Primary Care Provider Griffin Joshi MD Unavailable Roopa Almonte MD Unavailable Ilia Basilio Naik Unavailable Lydia Bernstein PA-C Unavailable Kate Rosa Maria CHW Unavailable Augustine Callaway MD Unavailable Paula Reza MD Unavailable Keerthi Miner APRN SKI TOW OPERATOR Unavailable Herman, Shahida Cummings APRN SKI TOW OPERATOR Unavailable Un available Porsha Michaels APRN SKI TOW OPERATOR Unavailable [phone] Paula Reza MD Unavailable Herman, Shahida Cummings APRN SKI TOW OPERATOR Unavailable Un available Daylin Ludwig Unavailable [phone] Laurel Velasquez MD Unavailable Daylin Ludwig Unavailable [phone] Paula Reza MD Unavailable Porsha Michaels APRN SKI TOW OPERATOR Unavailable [phone] Laurel Velasquez MD Unavailable Herman, Shahida Cummings APRN SKI TOW OPERATOR Unavailable Un available Marilin Montaño SKI TOW OPERATOR Unavailable [phone] Esha Dewitt MD Unavailable [phone] Heather Mosquera MD Unavailable Paula Reza MD Unavailable Esha Dewitt MD Unavailable [phone] Valdo Escamilla PA-C Unavailable [phone] Nohelia Abarca PA-C Unavailable [phone] Heather Mosquera MD Unavailable Fawad York MD Unavailable Encounter Details Date Type Department Care Team (Late st Contact Info) Description 09/23/2020 MyC Medical Advice [address] [address] Shahida Sutton, ENGAGEMENT MANAGER SKI TOW OPERATOR Social History Tobacco Use Types Packs/Day Years [...] 7:47 AM CDT RN placed call to [facility] to discuss ##6 on FMLA paperwork - awaiting call back Letter written to employer advising that pcp is out of the office until at which time we will assist with changes requested on FMLA paperwork Information from my chart - To the Attention of Carolynn: ?? Here is what the sales and marketing administrator is requesting: < < You must [...] Ramon Registered Nurse, ULISES (Patient Advocate Liason) [facility] [phone] documented in this encounter Plan of Treatment [...] documented as of this encounter Care Teams Line And Frame Poler Relationship Specialty Start Date End Date Shahida Sutton APRN SKI TOW OPERATOR PCP - General Nurse Practitioner 08/17/14 08/04/21 Paula Reza MD [facility] [address] [address] PCP - General Internal Medicine 08/05/21 Shahida Sutton APRN SKI TOW OPERATOR Assigned PCP 07/12/14 09/30/21 Carolynn Ramon RN Personal Advocate & Liaison (PAL) 12/17/18 08/07/21 Anabela Barakat APRN SKI TOW OPERATOR 1700 [place] [address] Assigned Heart and Vascular Provider 08/15/20 08/05/21 Nima France PA-C [address] [place] [address] Assigned Musculoskeletal Provider 08/22/20 11/13/20 [place] [address] [facility] [place] [address] Assigned Musculoskeletal Provider 11/14/20 12/04/20 Fawad York MD [address] [place], [place] [address] Assigned Musculoskeletal Provider 12/05/20 02/05/21 Roopa Almonte MD [address] [place] [address] Endocrinology, Diabetes, and Metabolism 01/19/21 [place] [address] [facility] [address] [place] [address] Assigned Musculoskeletal Provider 02/06/21 09/16/21 Maryse Burton, PA-C 5200 [place] [address] Physician Wallpaper Inspector Dermatology 04/14/21 Marquita Starkey MD [address] [place] [address] Internal Medicine 05/06/21 05/06/21 Roopa Almonte MD [address] [place] [address] Hospitalist Endocrinology, Diabetes, and Metabolism 05/30/21 Griffin Joshi MD [address] [place] [address] Cardiovascular Disease 07/25/21 Rina Magallon, RN Lead Distillery Worker General 07/29/21 07/11/22 Griffin Joshi MD [address] [facility] [address] [place] [address] Assigned Heart and Vascular Provider 08/06/21 10/07/21 Roopa Almonte MD [address] [facility] 200 [place] [address] Assigned Endocrinology Provider 09/10/21 [place] [address] [facility] [place] [address] Assigned Musculoskeletal Provider 09/17/21 10/14/21 Lydia Bernstein PA-C [address] [facility] 150 [place] [address] Assigned PCP 10/01/21 10/21/21 Rosa Maria Love CHW Community Health Worker 10/06/21 07/11/22 [place] [address] [facility] 300 [place] [address] Assigned Musculoskeletal Provider 10/15/21 04/26/23 Paula Reza MD [address] [facility] 200 [place] [address] Assigned PCP 10/22/21 12/23/21 Keerthi Miner APRN SKI TOW OPERATOR [address] [place] [address] Assigned Heart and Vascular Provider 10/08/21 02/10/22 Shahida Sutton APRN SKI TOW OPERATOR Assigned PCP 12/24/21 03/24/22 Porsha Michaels APRN SKI TOW OPERATOR [address] [place] [address] Assigned Heart and Vascular Provider 02/11/22 05/12/22 Paula Reza MD [address] [facility] 200 [place] [address] Assigned PCP 03/25/22 04/07/22 Shahida Sutton APRN SKI TOW OPERATOR [address] [place] [address] Assigned PCP 04/08/22 06/30/22 Daylin Ludwig EP [facility] [address] [place] [address] Cardiac Rehabilitation Therapist 05/16/23 Laurel Velasquez MD [address] [place] [address] Assigned Heart and Vascular Provider 05/13/22 06/30/22 Daylin Ludwig EP [facility] [address] [place] [address] Cardiac Rehabilitation Therapist 06/08/22 06/09/23 Paula Reza MD [address] [place] [address] Assigned PCP 07/01/22 07/07/22 Porsha Michaels APRN SKI TOW OPERATOR [address] [place] [address] Assigned Heart and Vascular Provider 07/01/22 07/07/22 Laurel Velasquez MD [address] [place] [address] Assigned Heart and Vascular Provider 07/08/22 08/04/22 Shahida Sutton APRN SKI TOW OPERATOR Assigned PCP 07/08/22 09/08/22 Marilin Montaño SKI TOW OPERATOR [address] [place] [address] Assigned Heart and Vascular Provider 08/05/22 Esha Dewitt MD [address] [place] [address] Gastroenterology 09/06/22 Heather Mosquera MD [address] [place] [address] Internal Medicine 09/06/22 Paula Reza MD [address] [place] [address] Assigned PCP 09/09/22 01/05/23 Esha Dewitt MD [address] [place] [address] Assigned Gastroenterology Provider 09/23/22 Valdo Escamilla PA-C 6363 [facility] 103 [place], [place] [address] Assigned Neuroscience Provider 09/30/22 Nohelia Abarca PA-C [address] [place], [place] [address] Physician Wallpaper Inspector Gastroenterology 10/03/22 Heather Mosquera MD 6545 [facility] 150 [place], [place] [address] Assigned PCP 01/06/23 Fawad York MD 909 [place], [place] [address] Assigned Musculoskeletal Provider 04/27/23 06/25/23 documented as of this encounter
--- OUTSIDE RECORDS SUMMARY | 2023-10-02 15:46 | XMS_ITS | Encounter Summary ---
Author Organization [facility] Address [address] [place] [address] Care Team Providers Care Frog Or Oyster Farmworker Name Role Phone HermanShahida APRN ARMED CUSTOM PROTECTION OFFICER Primary Care Provi ford Unavailable Shahida Sutton APRN ARMED CUSTOM PROTECTION OFFICER Unavailable Un available Carolynn Ramon RN Unavailable [phone] Anabela Barakat APRN ARMED CUSTOM PROTECTION OFFICER Unavailable Fawad York MD Unavailable [phone] Roopa Almonte MD Unavailable [phone] Augustine Callaway MD Unavailable Maryse Burton PA-C Unavailable [phone] Marquita Starkey MD Unavailable [phone] Roopa Almonte MD Unavailable [phone] Griffin Joshi MD Unavailable Rina Magallon RN Unavailable [phone] Paula Reza MD Primary Care Provider [phone] Griffin Joshi MD Unavailable Roopa Almonte MD Unavailable [phone] Basilio Morillo DO Unavailable Lydia Bernstein-C Unavailable Rosa Maria Love Unavailable Augustine Callaway MD Unavailable Paula Reza MD Unavailable Keerthi Miner APRN ARMED CUSTOM PROTECTION OFFICER Unavailable [phone] Herman, Shahida Cummings APRN ARMED CUSTOM PROTECTION OFFICER Unavailable Un available Porsha Michaels APRN ARMED CUSTOM PROTECTION OFFICER Unavailable Paula Reza MD Unavailable Herman, Shahida Cummings APRN ARMED CUSTOM PROTECTION OFFICER Unavailable Un available Daylin Ludwig Unavailable Laurel Velasquez MD Unavailable Daylin Ludwig Unavailable Paula Reza MD Unavailable Porsha Michaels APRN ARMED CUSTOM PROTECTION OFFICER Unavailable Laurel Velasquez MD Unavailable Herman, Shahida Cummings APRN ARMED CUSTOM PROTECTION OFFICER Unavailable Un available Marilin Montaño ARMED CUSTOM PROTECTION OFFICER Unavailable Esha Dewitt MD Unavailable Heather Mosquera MD Unavailable Paula Reza MD Unavailable Esha eDwitt MD Unavailable [phone] Valdo Escamilla-C Unavailable Nohelia Abarca PA-C Unavailable [phone] Heather Mosquera MD Unavailable Fawad York MD Unavailable [phone] Encounter Details Date Type Department Care Team (Late st Contact Info) Description 12/14/[address] [address] Shahida Sutton APRN CNP Social [...] orthopedist regarding his shoulder should be in [facility] and seeing PT with [facility] Phone Number patient can be reached at: Home number on file [phone] (home) Best Time: Can we leave a [...] documented as of this encounter Care Teams Frog Or Oyster Farmworker Relationship Specialty Start Date End Date Shahida Sutton APRN ARMED CUSTOM PROTECTION OFFICER PCP - General Nurse Practitioner 08/17/14 08/04/21 Paula Reza MD [address] [place], [place] [address] PCP - General Internal Medicine 08/05/21 Shahida Sutton APRN ARMED CUSTOM PROTECTION OFFICER Assigned PCP 07/12/14 09/30/21 Carolynn Ramon, KASIE Personal Advocate & Liaison (PAL) 12/17/18 08/07/21 Anabela Barakat APRN ARMED CUSTOM PROTECTION OFFICER 1700 [place] [address] Assigned Heart and Vascular Provider 08/15/20 08/05/21 Fawad York MD 9[address] [place], [place] [address] Assigned Musculoskeletal Provider 12/05/20 02/05/21 Roopa Almonte MD [address] [place] [address] Endocrinology, Diabetes, and Metabolism 01/19/[address] [place] [address] [facility] 300 [place] [address] Assigned Musculoskeletal Provider 02/06/21 09/16/21 Maryse Burton PA-C 5200 [place] [place] [address] Physician Plug 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 Dermatology 04/14/21 Marquita Starkey MD [address] [facility] 200 [place], [place] [address] Internal Medicine 05/06/21 05/06/21 Roopa Almonte MD [address] [facility] 200 [place] [address] Hospitalist Endocrinology, Diabetes, and Metabolism 05/30/21 Griffin Joshi MD [address] [facility] [address] [place] [id number] Cardiovascular Disease 07/25/21 Rina Magallon, RN Lead Farm Rancher 07/29/21 07/11/22 Griffin Joshi MD [address] [facility] [address] [place] [address] Assigned Heart and Vascular Provider 08/06/21 10/07/21 Roopa Almonte MD [address] [facility] 200 [place], [place] [address] Assigned Endocrinology Provider 09/10/21 [place] [address] [address] [place] [address] Assigned Musculoskeletal Provider 09/17/21 10/14/21 Lydia Bernstein PA-C [address] [place] [address] Assigned PCP 10/01/21 10/21/21 Rosa Maria Love Cristina Community Health Worker 10/06/21 07/11/22 [place] [address] [place] [address] Assigned Musculoskeletal Provider 10/15/21 04/26/23 Paula Reza MD [address] [place] [address] Assigned PCP 10/22/21 12/23/21 Keerthi Miner APRN ARMED CUSTOM PROTECTION OFFICER [address] [place] [address] Assigned Heart and Vascular Provider 10/08/21 02/10/22 Shahida Sutton APRN ARMED CUSTOM PROTECTION OFFICER Assigned PCP 12/24/21 03/24/22 Porsha Michaels APRN ARMED CUSTOM PROTECTION OFFICER [address] [place] [address] Assigned Heart and Vascular Provider 02/11/22 05/12/22 Paula Reza MD [address] [place] [address] Assigned PCP 03/25/22 04/07/22 Shahida Sutton APRN ARMED CUSTOM PROTECTION OFFICER [address] [place] [address] Assigned PCP 04/08/22 06/30/22 Daylin Ludwig, MIKI [facility] [address] [place] [address] Cardiac Rehabilitation Therapist 05/16/23 Laurel Velasquez MD [address] [place] [address] Assigned Heart and Vascular Provider 05/13/22 06/30/22 Daylin Ludwig, MIKI [facility] [address] [place] [address] Cardiac Rehabilitation Therapist 06/08/22 06/09/23 Paula Reza MD [address] [facility] 200 [place] [address] Assigned PCP 07/01/22 07/07/22 Porsha Michaels APRN ARMED CUSTOM PROTECTION OFFICER [address] [place] [address] Assigned Heart and Vascular Provider 07/01/22 07/07/22 Laurel Velasquez MD [address] [place] [address] Assigned Heart and Vascular Provider 07/08/22 08/04/22 Shahida Sutton APRN ARMED CUSTOM PROTECTION OFFICER Assigned PCP 07/08/22 09/08/22 Marilin Montaño, ARMED CUSTOM PROTECTION OFFICER [address] [place] [address] Assigned Heart and Vascular Provider 08/05/22 Esha Dewitt MD [address] [address] Gastroenterology 09/06/22 Heather Mosquera MD [address] [facility] [address] [place] [address] Internal Medicine 09/06/22 Paula Reza MD [address] [facility] 200 [place] [address] Assigned PCP 09/09/22 01/05/23 Esha Dewitt MD [address] [place] [address] Assigned Gastroenterology Provider 09/23/22 Valdo Escamilla PA-C [address] [facility] [address] [place] [address] Assigned Neuroscience Provider 09/30/22 Nohelia Abarca PA-C 2450 [place] [address] Physician Plug 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 Gastroenterology 10/03/22 Heather Mosquera MD [address] [facility] [address] [facility] 150 [place] [address] Assigned PCP 01/06/23 Fawad York MD [address] [place] [address] Assigned Musculoskeletal Provider 04/27/23 06/25/23 documented as of this encounter
--- OUTSIDE RECORDS SUMMARY | 2023-10-02 15:46 | XMS_ITS | Encounter Summary ---
Author Organization [facility] Address [address] [place] [address] Care Team Providers Care Electrician Radio Name Role Phone HermanShahida APRN AUTOMOBILE BODY REPAIRER HELPER Primary Care Provi ford Unavailable Shahida Sutton APRN AUTOMOBILE BODY REPAIRER HELPER Unavailable Un available Carolynn Ramon RN Unavailable [phone] Anabela Barakat APRN AUTOMOBILE BODY REPAIRER HELPER Unavailable Fawad York MD Unavailable [phone] oRopa Almonte MD Unavailable [phone] Augustine Callaway MD Unavailable Maryse Burton PA-C Unavailable [phone] Marquita Starkey MD Unavailable [phone] Roopa Almonte MD Unavailable [phone] Griffin Joshi MD Unavailable Rina Magallon RN Unavailable [phone] Paula Reza MD Primary Care Provider [phone] Griffin Joshi MD Unavailable Roopa Almonte MD Unavailable [phone] Basilio Morillo DO Unavailable Lydia Bernstein PA-C Unavailable Rosa Maria Love Unavailable Augustine Callaway MD Unavailable Paula Reza MD Unavailable Keerthi Miner APRN AUTOMOBILE BODY REPAIRER HELPER Unavailable [phone] Herman, Shahida Cummings APRN AUTOMOBILE BODY REPAIRER HELPER Unavailable Un available Porsha Michaels APRN AUTOMOBILE BODY REPAIRER HELPER Unavailable Paula Reza MD Unavailable Herman, Shahida Cummings APRN AUTOMOBILE BODY REPAIRER HELPER Unavailable Un available Daylin Ludwig Unavailable Laurel Velasquez MD Unavailable Daylin Ludwig Unavailable Paula Reza MD Unavailable Porsha Michaels APRN AUTOMOBILE BODY REPAIRER HELPER Unavailable Laurel Velasquez MD Unavailable Herman, Shahida Cummings APRN AUTOMOBILE BODY REPAIRER HELPER Unavailable Un available Marilin Montaño AUTOMOBILE BODY REPAIRER HELPER Unavailable Esha Dewitt MD Unavailable [phone] Heather Mosquera MD Unavailable Paula Reza MD Unavailable Esha Dewitt MD Unavailable [phone] Valdo Escamilla PA-C Unavailable Nohelia Abarca-C Unavailable [phone] Heather Mosquera MD Unavailable Fawad York MD Unavailable Reason for Visit * Reason Onset Date Comments Patient Request for Note/Letter 01/10/2021 KASIE MONTGOMERY Encounter Details Date Type Department Care Team (Late st Contact Info) Description 01/10/2021 [facility] Medical Advice [address] [address] Shahida Sutton APRN AUTOMOBILE BODY REPAIRER HELPER Patient Request for Note/Letter (KASIE MONTGOMERY ) [...] COVID-19? 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 [phone] N DE RINDER * Telephone Encounter - Carolynn Ramon RN - 01/10/2021 12:33 PM BACON DE RINDER See my chart Nathalia Watson Nurse, ULISES (Patient Advocate Liason) [facility] [phone] N DE RINDER documented in this encounter Plan of Treatment [...] documented as of this encounter Care Teams Electrician Radio Relationship Specialty Start Date End Date Shahida Sutton APRN AUTOMOBILE BODY REPAIRER HELPER PCP - General Nurse Practitioner 08/17/14 08/04/21 Paula Reza MD [address] [place] [address] [id number] PCP - General Internal Medicine 08/05/21 Shahida Sutton APRN AUTOMOBILE BODY REPAIRER HELPER Assigned PCP 07/12/14 09/30/21 Carolynn Ramon RN Personal Advocate & Liaison (PAL) 12/17/18 08/07/21 Anabela Barakat APRN AUTOMOBILE BODY REPAIRER HELPER [address] [place] [address] Assigned Heart and Vascular Provider 08/15/20 08/05/21 Fawad York MD [address] [place] [address] [id number] Assigned Musculoskeletal Provider 12/05/20 02/05/21 Roopa Almonte MD [address] [address] Endocrinology, Diabetes, and Metabolism 01/19/21 [place] [address] [facility] [address] [place] [address] Assigned Musculoskeletal Provider 02/06/21 09/16/21 Maryse Burton PA-C [address] [place] [address] Physician Advanced Solutions Architect Dermatology 04/14/21 Marquita Starkey MD [address] [facility] 200 [place] [address] Internal Medicine 05/06/21 05/06/21 Roopa Almonte MD [address] [facility] 200 [place] [address] Hospitalist Endocrinology, Diabetes, and Metabolism 05/30/21 Griffin Joshi MD [address] [facility] [address] [place] [address] Cardiovascular Disease 07/25/21 Rina Magallon, RN Lead Social Worker Palliative Care 07/29/21 07/11/22 Griffin Joshi MD [address] [facility] [address] [place] [address] Assigned Heart and Vascular Provider 08/06/21 10/07/21 Roopa Almonte MD [address] [facility] 200 [place] [address] Assigned Endocrinology Provider 09/10/21 [place] [address] [facility] [place] [address] Assigned Musculoskeletal Provider 09/17/21 10/14/21 Lydia Bernstein PA-C [address] [place] [address] Assigned PCP 10/01/21 10/21/21 Rosa Maria Love W Community Health Worker 10/06/21 07/11/22 [place] [address] [place] [address] Assigned Musculoskeletal Provider 10/15/21 04/26/23 Paula Reza MD [address] [place] [address] Assigned PCP 10/22/21 12/23/21 Keerthi Miner APRN AUTOMOBILE BODY REPAIRER HELPER [address] [place] [address] Assigned Heart and Vascular Provider 10/08/21 02/10/22 Shahida Sutton, [employer] ENGINEER AUTOMOBILE BODY REPAIRER HELPER Assigned PCP 12/24/21 03/24/22 Porsha Michaels APRN AUTOMOBILE BODY REPAIRER HELPER [address] [place] [address] Assigned Heart and Vascular Provider 02/11/22 05/12/22 Paula Reza MD [address] [place] [address] Assigned PCP 03/25/22 04/07/22 Shahida Sutton APRN AUTOMOBILE BODY REPAIRER HELPER [address] [place] [address] Assigned PCP 04/08/22 06/30/22 Daylin Ludwig, MIKI [facility] [address] [place] [address] Cardiac Rehabilitation Therapist 05/16/23 Laurel Velasquez MD [address] [place] [address] Assigned Heart and Vascular Provider 05/13/22 06/30/22 Daylin Ludwig, EP [facility] [address] [address] Cardiac Rehabilitation Therapist 06/08/22 06/09/23 Paula Reza MD [address] [address] Assigned PCP 07/01/22 07/07/22 Porsha Michaels APRN AUTOMOBILE BODY REPAIRER HELPER [address] [place] [address] Assigned Heart and Vascular Provider 07/01/22 07/07/22 Laurel Velasquez MD [address] [place] [address] Assigned Heart and Vascular Provider 07/08/22 08/04/22 Shahida Sutton APRN AUTOMOBILE BODY REPAIRER HELPER Assigned PCP 07/08/22 09/08/22 Marilin Montaño AUTOMOBILE BODY REPAIRER HELPER [address] [place] [address] Assigned Heart and Vascular Provider 08/05/22 Esha Dewitt MD [address] [facility] 36 [place] [address] Gastroenterology 09/06/22 Heather Mosquera MD [address] [place] [address] Internal Medicine 09/06/22 Paula Reza MD [address] [facility] [address] [place], [place] [address] Assigned PCP 09/09/22 01/05/23 Esha Dewitt MD [address] [facility] 36 [place], [place] [address] Assigned Gastroenterology Provider 09/23/22 Valdo Escamilla PA-C [address] [facility] [address] [place] [address] Assigned Neuroscience Provider 09/30/22 Nohelia Abarca PA-C [address] [place] [address] Physician Advanced Solutions Architect Gastroenterology 10/03/22 Heather Mosquera MD [address] [place] [address] Assigned PCP 01/06/23 Fawad York MD [address] [place] [address] Assigned Musculoskeletal Provider 04/27/23 06/25/23 documented as of this encounter
--- OUTSIDE RECORDS SUMMARY | 2023-10-02 15:47 | XMS_ITS | Encounter Summary ---
Author Organization [facility] Address [address] [place] [address] Care Team Providers Care Tax Clerk Name Role Phone Shahida Sutton APRN SHALLOT CLEANER Primary Care Provi ford Unavailable Shahida Sutton APRN SHALLOT CLEANER Unavailable Un available Carolynn Ramon RN Unavailable [phone] Augustine Callaway MD Unavailable Brady Lion MD Unavailable Un available Nima France-C Unavailable Camille Chandler PA-C Unavailable [phone] Anabela Barakat APRN SHALLOT CLEANER Unavailable Nima France PA-C Unavailable Basilio Morillo DO Unavailable Fawad York MD Unavailable Roopa Almonte MD Unavailable Augustine Callaway MD Unavailable Maryse Burton PA-C Unavailable Marquita Starkey MD Unavailable [phone] Roopa Almonte MD Unavailable Griffin Joshi MD Unavailable Rina Magallon RN Unavailable [phone] Paula Reza MD Primary Care Provider [phone] Griffin Joshi MD Unavailable Roopa Almonte MD Unavailable [phone] Basilio Morillo DO Unavailable Lydia Bernstein-C Unavailable Rosa Maria Love Unavailable [phone] Augustine Callaway MD Unavailable Paula Reza MD Unavailable Keerthi Miner APRN SHALLOT CLEANER Unavailable [phone] Herman, Shahida Cummings APRN SHALLOT CLEANER Unavailable Un available Porsha Michaels APRN SHALLOT CLEANER Unavailable [phone] Paula Reza MD Unavailable Shahida Sutton APRN SHALLOT CLEANER Unavailable Un available Daylin Ludwig Unavailable [phone] Laurel Velasquez MD Unavailable [phone] Daylin Ludwig Unavailable [phone] Paula Reza MD Unavailable Porsha Michaels APRN SHALLOT CLEANER Unavailable [phone] Laurel Velasquez MD Unavailable [phone] Shahida Sutton NURSE CLINICIAN SHALLOT CLEANER Unavailable Un available Marilin Montaño SHALLOT CLEANER Unavailable [phone] Esha Dewitt MD Unavailable [phone] EvelineHeather MD Unavailable [phone] Paula Reza MD Unavailable Esha Dewitt MD Unavailable [phone] Andi Valdo Desouza PA-C Unavailable Nohelia Abarca PA-C Unavailable [phone] Heather Mosquera MD Unavailable Fawad York MD Unavailable Reason for Visit * Reason Onset Date Comments Appointment 02/11/2020 Encounter Details Date Type Department Care Team (Late st Contact Info) Description 02/11/[address] [address] Shahida Sutton APRN SHALLOT CLEANER Appointment Social History Tobacco Use Types Packs/Day [...] COVID-19? No / Unsure 02/06/2020 8:12 AM SUIT MAKER documented as of this encounter Miscellaneous Notes * Telephone Encounter - Carolynn Ramon RN - 02/11/2020 12:18 PM SUIT MAKER Shahida Sutton APRN SHALLOT CLEANER FYI - Patient is concerned with his overall mental and physical health Patient is having diarrhea, migraines, pain issues that are ongoing Patient states that due to his mental state yesterday he gave himself an increased dose of insulin on accident - went to the ER (viewable in epic) per ER notes glucose was elevated at each check 256,279, 275, 277,228 (per credit risk review officer) Patient states that he thinks he needs to take a leave of absence from work. RN scheduled appt with pcp in clinic Next 5 appointments (look out 90 days) Feb 13, 2020 8:15 AM Return Visit with Brady Lion MD [facility] ([facility]) [address] [facility] 140 [facility] [id number] Feb 19, 2020 2:00 PM (Arrive by 1:40 PM) Office Visit with Shahida Sutton APRN CNP [facility] ([facility]) [address] [place] [address] Carolynn Ramon, Registered Nurse, PAL (Patient Advocate Liason) [facility] [phone] MAKER * Telephone Encounter - Rachel Lozada - [...] detailed message:No at Home number on file [phone] (home) Rachel Lozada-Patient Rep MAKER documented in this encounter Plan of Treatment Not on file documented as of this encounter Visit Diagnoses Not on filedocumented in this encounter Additional Health Concerns Infection Onset Date Last Indicated Resolved Time Rule Out COVID-19 02/15/2020 02/15/2020 02/16/2020 2:32 PM SUIT MAKER Rule Out COVID-19 01/05/2021 01/05/2021 01/06/2021 12:57 PM CDT ESBL 01/05/2021 01/05/2021 Rule Out COVID-19 06/30/2021 06/30/2021 07/01/2021 9:34 AM CDT Rule Out COVID-19 07/25/2021 07/25/2021 07/25/2021 8:02 PM CDT Assessment Noted Time PHQ-9 Depression Total Score: 7 08/13/19 20 1:22 PM CDT documented as of this encounter Care Teams Tax Clerk Relationship Specialty Start Date End Date Shahida Sutton APRN SHALLOT CLEANER PCP - General Nurse Practitioner 08/17/14 08/04/21 Paula Reza MD [address] [place] [address] PCP - General Internal Medicine 08/05/21 Shahida Sutton APRN SHALLOT CLEANER Assigned PCP 07/12/14 09/30/21 Carolynn Ramon RN Personal Advocate & Liaison (PAL) 12/17/18 08/07/21 [place] [address] [place] [address] Assigned Musculoskeletal Provider 12/26/19 08/21/20 Brady Lion MD Assigned Heart and Vascular Provider 12/26/19 08/14/20 Nima France PA-C [address] [place] [address]45[address] Assigned Surgical Provider 05/19/20 08/21/20 Camille Chandler PA-C [address] [place] [address] Assigned Neuroscience Provider 05/19/20 09/14/20 Anabela Barakat APRN SHALLOT CLEANER [address] [place] [address] Assigned Heart and Vascular Provider 08/15/20 08/05/21 Nima France PA-C [address] [facility] 450 [place] [address] Assigned Musculoskeletal Provider 08/22/20 11/13/20 [place] [address] [place] [address] Assigned Musculoskeletal Provider 11/14/20 12/04/20 Fawad York MD 9 [place] [address] Assigned Musculoskeletal Provider 12/05/20 02/05/21 Roopa Almonte MD [address] [facility] 200 [place] [address] Endocrinology, Diabetes, and Metabolism 01/19/21 [place] [address] [facility] [address] [place] [address] Assigned Musculoskeletal Provider 02/06/21 09/16/21 Maryse Burton PA-C [address] [place] [address] Physician Heavy Truck Technician Dermatology 04/14/21 Marquita Starkey MD [address] [facility] 200 [place], [place] [address] Internal Medicine 05/06/21 05/06/21 Roopa Almonte MD [address] [facility] [facility] 200 [place] [address] Hospitalist Endocrinology, Diabetes, and Metabolism 05/30/21 Griffin Joshi MD [address] [place] [address] Cardiovascular Disease 07/25/21 Rina Magallon, RN Lead Pet Trainer 07/29/21 07/11/22 Griffin Joshi MD [address] [place] [address] Assigned Heart and Vascular Provider 08/06/21 10/07/21 Roopa Almonte MD [address] [facility] 200 [place], [place] [address] Assigned Endocrinology Provider 09/10/21 [place] [address] [facility] [place] [address] Assigned Musculoskeletal Provider 09/17/21 10/14/21 Lydia Bernstein PA-C [address] [place] [address] Assigned PCP 10/01/21 10/21/21 Rosa Maria Love CHW Community Health Worker 10/06/21 07/11/22 [place] [address] [place] [address] Assigned Musculoskeletal Provider 10/15/21 04/26/23 Paula Reza MD [address] [place] [address] Assigned PCP 10/22/21 12/23/21 Keerthi Miner APRN SHALLOT CLEANER [address] [place] [address] Assigned Heart and Vascular Provider 10/08/21 02/10/22 Shahida Sutton APRN SHALLOT CLEANER Assigned PCP 12/24/21 03/24/22 Porsha Michaels APRN SHALLOT CLEANER [address] [address] Assigned Heart and Vascular Provider 02/11/22 05/12/22 Paula Reza MD [address] [place] [address] Assigned PCP 03/25/22 04/07/22 Shahida Sutton APRN SHALLOT CLEANER [address] [address] Assigned PCP 04/08/22 06/30/22 Daylin Ludwig EP [facility] [address] [address] Cardiac Rehabilitation Therapist 05/16/23 Laurel Velasquez MD [address] [address] Assigned Heart and Vascular Provider 05/13/22 06/30/22 Daylin Ludwig EP [facility] [address] [place] [address] Cardiac Rehabilitation Therapist 06/08/22 06/09/23 Paula Reza MD [address] [facility] [address] [place], [place] [address] Assigned PCP 07/01/22 07/07/22 Porsha Michaels APRN SHALLOT CLEANER [address] [place] [address] Assigned Heart and Vascular Provider 07/01/22 07/07/22 Laurel Velasquez MD [address] [place] [address] Assigned Heart and Vascular Provider 07/08/22 08/04/22 Shahida Sutton APRN SHALLOT CLEANER Assigned PCP 07/08/22 09/08/22 Marilin Montaño, SHALLOT CLEANER [address] [place] [address] Assigned Heart and Vascular Provider 08/05/22 Esha Dewitt MD [address] [place] [address] 36 [place], [place] [address] Gastroenterology 09/06/22 Heather Mosquera MD [address] [place] [address] Internal Medicine 09/06/22 Paula Reza MD [address] [place] [address] Assigned PCP 09/09/22 01/05/23 Esha Dewitt MD 420 [facility] 36 [place], [place] [address] Assigned Gastroenterology Provider 09/23/22 Valdo Escamilla PA-C [address] [facility] [address] [place], [place] [address] Assigned Neuroscience Provider 09/30/22 Nohelia Abarca PA-C [address] [place], [place] [address] Physician Heavy Truck Technician Gastroenterology 10/03/22 Heather Mosquera MD [address] [place], [place] [address] Assigned PCP 01/06/23 Fawad York MD [address]09 [place], [place] [address] Assigned Musculoskeletal Provider 04/27/23 06/25/23 documented as of this encounter
--- OUTSIDE RECORDS SUMMARY | 2023-10-02 15:47 | XMS_ITS | Encounter Summary ---
Author Organization [facility] Address [address] [place] [address] Care Team Providers Care Registered Safety Engineer Name Role Phone Shahida Sutton APRN AUTOMOTIVE PRODUCTION WORKER Primary Care Provi ford Unavailable Shahida Sutton APRN AUTOMOTIVE PRODUCTION WORKER Unavailable Un available Carolynn Ramon RN Unavailable [phone] Augustine Callaway MD Unavailable Brady Lion MD Unavailable Un available Nima France-C Unavailable Camille Chandler PA-C Unavailable [phone] Anabela Barakat APRN AUTOMOTIVE PRODUCTION WORKER Unavailable Nima France PA-C Unavailable Basilio Morillo DO Unavailable Fawad York MD Unavailable Roopa Almonte MD Unavailable Augustine Callaway MD Unavailable Maryse Burton PA-C Unavailable Marquita Stareky MD Unavailable [phone] Roopa Almonte MD Unavailable Griffin Joshi MD Unavailable Rina Magallon RN Unavailable [phone] Paula Reza MD Primary Care Provider [phone] Griffin Joshi MD Unavailable Roopa Almonte MD Unavailable [phone] Basilio Morillo DO Unavailable Lydia Bernstein-C Unavailable Rosa Maria Love Unavailable [phone] Augustine Callaway MD Unavailable Paula Reza MD Unavailable Keerthi Miner APRN AUTOMOTIVE PRODUCTION WORKER Unavailable [phone] Herman, Shahida Cummings APRN AUTOMOTIVE PRODUCTION WORKER Unavailable Un available Porsha Michaels APRN AUTOMOTIVE PRODUCTION WORKER Unavailable [phone] Paula Reza MD Unavailable Shahida Sutton APRN AUTOMOTIVE PRODUCTION WORKER Unavailable Un available Daylin Ludwig Unavailable [phone] Laurel Velasquez MD Unavailable [phone] Daylin Ludwig Unavailable [phone] Paula Reza MD Unavailable Porsha Michaels APRN AUTOMOTIVE PRODUCTION WORKER Unavailable [phone] Laurel Velasquez MD Unavailable [phone] Shahida Sutton CIRCUITRY NEGATIVE INSPECTOR AUTOMOTIVE PRODUCTION WORKER Unavailable Un available Marilin Montaño AUTOMOTIVE PRODUCTION WORKER Unavailable [phone] Esha Dewitt MD Unavailable [phone] EvelineHeather MD Unavailable [phone] Paula Reza MD Unavailable Esha Dewitt MD Unavailable [phone] Valdo Escamilla PA-C Unavailable [phone] Nohelia Abarca PA-C Unavailable [phone] Heather Mosquera MD Unavailable [phone] Fawad York MD Unavailable [phone] Encounter Details Date Type Department Care Team (Late st Contact Info) Description 02/10/2020 [facility] [address] [place] [phone] Rina Winkler RN Social History Tobacco Use [...] COVID-19? No / Unsure 02/06/2020 8:12 AM FOOT CUTTER documented as of this encounter Plan of Treatment Not on file documented as of this encounter Visit Diagnoses Not on filedocumented in this encounter Additional Health Concerns Infection Onset Date Last Indicated Resolved Time Rule Out COVID-19 02/15/2020 02/15/2020 02/16/2020 2:32 PM FOOT CUTTER Rule Out COVID-19 01/05/2021 01/05/2021 01/06/2021 12:57 PM CDT ESBL 01/05/2021 01/05/2021 Rule Out COVID-19 06/30/2021 06/30/2021 07/01/2021 9:34 AM CDT Rule Out COVID-19 07/25/2021 07/25/2021 07/25/2021 8:02 PM CDT Assessment Noted Time PHQ-9 Depression Total Score: 7 08/13/19 20 1:22 PM CDT documented as of this encounter Care Teams Registered Safety Engineer Relationship Specialty Start Date End Date Shahida Sutton APRN AUTOMOTIVE PRODUCTION WORKER PCP - General Nurse Practitioner 08/17/14 08/04/21 Paula Reza MD [address] [facility] [address] [place] [address] PCP - General Internal Medicine 08/05/21 Shahida Sutton APRN AUTOMOTIVE PRODUCTION WORKER Assigned PCP 07/12/14 09/30/21 Carolynn Ramon RN Personal Advocate & Liaison (PAL) 12/17/18 08/07/21 [place] [address] [place] [address] Assigned Musculoskeletal Provider 12/26/19 08/21/20 Brady Lion MD Assigned Heart and Vascular Provider 12/26/19 08/14/20 Nima France PA-C [address] [place] [address] Assigned Surgical Provider 05/19/20 08/21/20 Camille Chandler PA-C [address] [place] [address] Assigned Neuroscience Provider 05/19/20 09/14/20 Anabela Barakat APRN AUTOMOTIVE PRODUCTION WORKER [address] [place] [address] Assigned Heart and Vascular Provider 08/15/20 08/05/21 Nima France PA-C [address] [facility] [address] [place] [address] Assigned Musculoskeletal Provider 08/22/20 11/13/20 [place] [address] [facility] [place], [place] [address] Assigned Musculoskeletal Provider 11/14/20 12/04/20 Fawad York MD [address] [place], [place] [address] Assigned Musculoskeletal Provider 12/05/20 02/05/21 Roopa Almonte MD [address] [employer] [facility] 200 [place] [address] Endocrinology, Diabetes, and Metabolism 01/19/21 [place] [address] [facility] [address] [place] [address] Assigned Musculoskeletal Provider 02/06/21 09/16/21 Maryse Burton PA-C [address] [place] [address] Physician Bus Or Truck Garage Mechanic Dermatology 04/14/21 Marquita Starkey MD [address] [facility] [address] [place], [place] [address] Internal Medicine 05/06/21 05/06/21 Roopa Almonte MD [address] [facility] [address] [place], [place] [address] Hospitalist Endocrinology, Diabetes, and Metabolism 05/30/21 Griffin Joshi MD [address] [facility] [address] [place] [address] Cardiovascular Disease 07/25/21 Rina Magallon, RN Lead Director Of Billing 07/29/21 07/11/22 Griffin Joshi MD [address] [place] [address] Assigned Heart and Vascular Provider 08/06/21 10/07/21 Roopa Almonte MD [address] [facility] 200 [place] [address] Assigned Endocrinology Provider 09/10/21 [place] [address] [facility] [address] Assigned Musculoskeletal Provider 09/17/21 10/14/21 Lydia Bernstein PA-C [address] [facility] [address] [place] [address] Assigned PCP 10/01/21 10/21/21 Rosa Maria Love CHW Community Health Worker 10/06/21 07/11/22 [place] [address] [facility] [address] [place] [address] Assigned Musculoskeletal Provider 10/15/21 04/26/23 Paula Reza MD [address] [facility] [address] Assigned PCP 10/22/21 12/23/21 Keerthi Miner APRN AUTOMOTIVE PRODUCTION WORKER [address] [place] [address] Assigned Heart and Vascular Provider 10/08/21 02/10/22 Shahida Sutton APRN AUTOMOTIVE PRODUCTION WORKER Assigned PCP 12/24/21 03/24/22 Porsha Michaels APRN AUTOMOTIVE PRODUCTION WORKER [address] [place] [address] Assigned Heart and Vascular Provider 02/11/22 05/12/22 Paula Reza MD [address] [place] [address] Assigned PCP 03/25/22 04/07/22 Shahida Sutton APRN AUTOMOTIVE PRODUCTION WORKER [address] [place] [address] Assigned PCP 04/08/22 06/30/22 Daylin Ludwig, EP [facility] [address] [place] [address] Cardiac Rehabilitation Therapist 05/16/23 Laurel Velasquez MD [address] [place] [address] Assigned Heart and Vascular Provider 05/13/22 06/30/22 Daylin Ludwig, EP [facility] [address] [place] [address] Cardiac Rehabilitation Therapist 06/08/22 06/09/23 Paula Reza MD [address] [place], [place] [address] Assigned PCP 07/01/22 07/07/22 Porsha Michaels APRN AUTOMOTIVE PRODUCTION WORKER [address] [place] [address] Assigned Heart and Vascular Provider 07/01/22 07/07/22 Laurel Velasquez MD [address] [place] [address] Assigned Heart and Vascular Provider 07/08/22 08/04/22 Shahida Sutton APRN AUTOMOTIVE PRODUCTION WORKER Assigned PCP 07/08/22 09/08/22 Marilin Montaño, AUTOMOTIVE PRODUCTION WORKER [address] [place] [address] Assigned Heart and Vascular Provider 08/05/22 Esha Dweitt MD [address] [place] [id number] Gastroenterology 09/06/22 Heather Mosquera MD [address] [place] [address] Internal Medicine 09/06/22 Paula Reza MD [address] [place] [address] Assigned PCP 09/09/22 01/05/23 Esha Dewitt MD [address] [facility] 36 [place], [place] [address] Assigned Gastroenterology Provider 09/23/22 Valdo Escamilla PA-C [address] [facility] [address] [place] [address] Assigned Neuroscience Provider 09/30/22 Nohelia Abarca PA-C [address] [place] [address] Physician Bus Or Truck Garage Mechanic Gastroenterology 10/03/22 Heather Mosquera MD [address] [place] [address] Assigned PCP 01/06/23 Fawad York MD [address] [place], [place] [address] Assigned Musculoskeletal Provider 04/27/23 06/25/23 documented as of this encounter
--- OUTSIDE RECORDS SUMMARY | 2023-10-02 15:47 | XMS_ITS | Encounter Summary ---
Author Organization [facility] Address [address] [place] [address] Care Team Providers Care Wrecking Crane Engine Operator Name Role Phone Shahida Sutton APRN CLOUD OPERATIONS ENGINEER Primary Care Provi ford Unavailable Shahida Sutton APRN CLOUD OPERATIONS ENGINEER Unavailable Un available Carolynn Ramon RN Unavailable [phone] Augustine Callaway MD Unavailable Brady Lion MD Unavailable Un available Nima France-C Unavailable Camille Chandler PA-C Unavailable [phone] Anabela Barakat APRN CLOUD OPERATIONS ENGINEER Unavailable Nima France PA-C Unavailable Basilio Morillo DO Unavailable Fawad York MD Unavailable Roopa Almonte MD Unavailable Augustine Callaway MD Unavailable Maryse Burton PA-C Unavailable [phone] Marquita Starkey MD Unavailable Roopa Almonte MD Unavailable Griffin Joshi MD Unavailable Rina Magallon RN Unavailable [phone] Paula Reza MD Primary Care Provider [phone] Griffin Joshi MD Unavailable Roopa Almonte MD Unavailable [phone] Basilio Morillo DO Unavailable Lydia Bernstein-C Unavailable Rosa Maria Love Unavailable [phone] Augustine Callaway MD Unavailable Paula Reza MD Unavailable Keerthi Miner APRN CLOUD OPERATIONS ENGINEER Unavailable [phone] Herman, Shahida Cummings APRN CLOUD OPERATIONS ENGINEER Unavailable Un available Porsha Michaels APRN CLOUD OPERATIONS ENGINEER Unavailable [phone] Paula Reza MD Unavailable Shahida Sutton APRN CLOUD OPERATIONS ENGINEER Unavailable Un available Daylin Ludwig Unavailable [phone] Laurel Velasquez MD Unavailable [phone] Daylin Ludwig Unavailable [phone] Paula Reza MD Unavailable Porsha Michaels APRN CLOUD OPERATIONS ENGINEER Unavailable [phone] Laurel Velasquez MD Unavailable [phone] Shahida Sutton BRIDGE IRONWORKER CLOUD OPERATIONS ENGINEER Unavailable Un available Marilin Montaño CLOUD OPERATIONS ENGINEER Unavailable [phone] Esha Dewitt MD Unavailable [phone] EvelineHeather MD Unavailable [phone] Paula Reza MD Unavailable Esha Dewitt MD Unavailable [phone] Valdo Escamilla PA-C Unavailable Nohelia Abarca PA-C Unavailable [phone] Heather Mosquera MD Unavailable [phone] Fawad York MD Unavailable [phone] Encounter Details Date Type Department Care Team (Late st Contact Info) Description 06/29/2020 [facility] [address] [address] Hiral Curran, BEER COOLER Social History Tobacco Use Types Packs/Day Years [...] documented as of this encounter Care Teams Wrecking Crane Engine Operator Relationship Specialty Start Date End Date Shahida Sutton APRN CLOUD OPERATIONS ENGINEER PCP - General Nurse Practitioner 08/17/14 08/04/21 Paula Reza MD [address] [facility] 200 [place] [address] PCP - General Internal Medicine 08/05/21 Shahida Sutton APRN CLOUD OPERATIONS ENGINEER Assigned PCP 07/12/14 09/30/21 Carolynn Ramon, KASIE Personal Advocate & Liaison (PAL) 12/17/18 08/07/21 [place] [address] [facility] [address] [place] [address] Assigned Musculoskeletal Provider 12/26/19 08/21/20 Brady Lion MD Assigned Heart and Vascular Provider 12/26/19 08/14/20 Nima France PA-C [address] [facility] 450 [place] [address] Assigned Surgical Provider 05/19/20 08/21/20 Camille Chandler PA-C [address] [facility] [address] [place] [address] Assigned Neuroscience Provider 05/19/20 09/14/20 Anabela Barakat APRN CLOUD OPERATIONS ENGINEER [address] [place] [address] Assigned Heart and Vascular Provider 08/15/20 08/05/21 Nima France PA-C [address] [facility] [address] [place] [address] Assigned Musculoskeletal Provider 08/22/20 11/13/20 [place] [address] [facility] [place] [address] Assigned Musculoskeletal Provider 11/14/20 12/04/20 Fawad York MD [address] [place], [place] [address] Assigned Musculoskeletal Provider 12/05/20 02/05/21 Roopa Almonte MD [address] [facility] 200 [place] [address] Endocrinology, Diabetes, and Metabolism 01/19/21 [place] [address] [facility] [address] [place] [address] Assigned Musculoskeletal Provider 02/06/21 09/16/21 Maryse Burton PA-C [address] [place] [address] Physician Tail Trimmer Dermatology 04/14/21 Marquita Starkey MD [address] [facility] 200 [place] [address] Internal Medicine 05/06/21 05/06/21 Roopa Almonte MD [address] [place] [address] Hospitalist Endocrinology, Diabetes, and Metabolism 05/30/21 Griffin Joshi MD [address] [facility] [address] [place] [address] Cardiovascular Disease 07/25/21 Rina Magallon, RN Lead Airline Hostess 07/29/21 07/11/22 Griffin Joshi MD [address] [facility] [address] [place] [address] Assigned Heart and Vascular Provider 08/06/21 10/07/21 Roopa Almonte MD [address] 200 [place] [address] Assigned Endocrinology Provider 09/10/21 [place] [address] [place] [address] Assigned Musculoskeletal Provider 09/17/21 10/14/21 Lydia Bernstein PA-C [address] [facility] [address] [place] [address] Assigned PCP 10/01/21 10/21/21 Rosa Maria Love CHW Community Health Worker 10/06/21 07/11/22 [place] [address] [place] [facility] [address] [place] [address] Assigned Musculoskeletal Provider 10/15/21 04/26/23 Paula Reza MD [address] [facility] [address] [place], [place] [address] Assigned PCP 10/22/21 12/23/21 Keerthi Miner BRIDGE IRONWORKER CLOUD OPERATIONS ENGINEER [address] [place], [place] [address] Assigned Heart and Vascular Provider 10/08/21 02/10/22 Shahida Sutton BRIDGE IRONWORKER CLOUD OPERATIONS ENGINEER Assigned PCP 12/24/21 03/24/22 Porsha Michaels BRIDGE IRONWORKER CLOUD OPERATIONS ENGINEER [address] [place] [address] Assigned Heart and Vascular Provider 02/11/22 05/12/22 Paula Reza MD [address] [facility] 200 [place] [address] Assigned PCP 03/25/22 04/07/22 Shahida Sutton APRN CLOUD OPERATIONS ENGINEER [address] [place] [address] Assigned PCP 04/08/22 06/30/22 Daylin Ludwig, MIKI [facility] [address] [place] [address] Cardiac Rehabilitation Therapist 05/16/23 Laurel Velasquez MD [address] [place] [address] Assigned Heart and Vascular Provider 05/13/22 06/30/22 Daylin Ludwig, MIKI [facility] [address] [place] [address] Cardiac Rehabilitation Therapist 06/08/22 06/09/23 Paula Reza MD [address] [place], [place] [address] Assigned PCP 07/01/22 07/07/22 Porsha Michaels APRN CLOUD OPERATIONS ENGINEER [address] [place] [address] Assigned Heart and Vascular Provider 07/01/22 07/07/22 Laurel Velasquez MD [address] [place], [place] [address] Assigned Heart and Vascular Provider 07/08/22 08/04/22 Shahida Sutton APRN CLOUD OPERATIONS ENGINEER Assigned PCP 07/08/22 09/08/22 Marilin Montaño CLOUD OPERATIONS ENGINEER [address] [place] [address] Assigned Heart and Vascular Provider 08/05/22 Esha Dewitt MD [address] [place] [address] Gastroenterology 09/06/22 Heather Mosquera MD [address] [place] [address] Internal Medicine 09/06/22 Paula Reza MD [address] [place] [address] Assigned PCP 09/09/22 01/05/23 Esha Dewitt MD [address] [place] [address] Assigned Gastroenterology Provider 09/23/22 Valdo Escamilla PA-C [address] [facility] [address] [place] [address] Assigned Neuroscience Provider 09/30/22 Nohelia Abarca PA-C [address]50 [place] [address] Physician Tail Trimmer Gastroenterology 10/03/22 Heather Mosquera MD [address] [facility] 150 [place] [address] Assigned PCP 01/06/23 Fawad York MD [address] [place], [place] [address] Assigned Musculoskeletal Provider 04/27/23 06/25/23 documented as of this encounter
--- OUTSIDE RECORDS SUMMARY | 2023-10-02 15:47 | XMS_ITS | Encounter Summary ---
Author Organization [facility] Address [address] [place] [address] Care Team Providers Care Loading Dock Helper Name Role Phone Shahida Sutton APRN METAL MILLING MACHINE OPERATOR Primary Care Provi ford Unavailable Shahida Sutton APRN METAL MILLING MACHINE OPERATOR Unavailable Un available Carolynn Ramon RN Unavailable Augustine Callaway MD Unavailable Brady Lion MD Unavailable Un available Nima France-C Unavailable Camille Chandler PA-C Unavailable [phone] Anabela Barakat APRN METAL MILLING MACHINE OPERATOR Unavailable Nima France PA-C Unavailable Basilio Morillo DO Unavailable Fawad York MD Unavailable Roopa Almonte MD Unavailable Augustine Callaway MD Unavailable Maryse Burton PA-C Unavailable [phone] Marquita Starkey MD Unavailable Roopa Almonte MD Unavailable Griffin Joshi MD Unavailable Rina Magallon RN Unavailable [phone] Paula Reza MD Primary Care Provider [phone] Griffin Joshi MD Unavailable Roopa Almonte MD Unavailable [phone] Basilio Morillo DO Unavailable Lydia Bernstein-C Unavailable Rosa Maria Love Unavailable [phone] Augustine Callaway MD Unavailable Paula Reza MD Unavailable Keerthi Miner APRN METAL MILLING MACHINE OPERATOR Unavailable [phone] Herman, Shahida Cummings APRN METAL MILLING MACHINE OPERATOR Unavailable Un available Porsha Michaels APRN METAL MILLING MACHINE OPERATOR Unavailable [phone] Paula Reza MD Unavailable Shahida Sutton APRN METAL MILLING MACHINE OPERATOR Unavailable Un available Daylin Ludwig Unavailable [phone] Laurel Velasquez MD Unavailable [phone] Daylin Ludwig Unavailable [phone] Paula Reza MD Unavailable Porsha Michaels APRN METAL MILLING MACHINE OPERATOR Unavailable [phone] Laurel Vleasquez MD Unavailable [phone] Shahida Sutton REGISTERED DIETITIAN METAL MILLING MACHINE OPERATOR Unavailable Un available Marilin Montaño METAL MILLING MACHINE OPERATOR Unavailable [phone] Esha Dewitt MD Unavailable [phone] EvelineHeather MD Unavailable [phone] Paula Reza MD Unavailable Esha Dewitt MD Unavailable [phone] Andi Valdo Desouza PA-C Unavailable [phone] Nohelia Abarca PA-C Unavailable [phone] Heather Mosquera MD Unavailable [phone] Fawad York MD Unavailable Reason for Visit * Reason Comments Medication Refill Encounter Details Date Type Department Care Team (Late st Contact Info) Description 08/03/[address] [address] Shahida Sutton APRN CNP Medication [...] 08/05/2020 2:10 PM CDT Prescription approved per [facility] Refill Protocol. Marilin Cuevas RN [facility] -- Triage Nurse documented in this [...] documented as of this encounter Care Teams Loading Dock Helper Relationship Specialty Start Date End Date Shahida Sutton APRN METAL MILLING MACHINE OPERATOR PCP - General Nurse Practitioner 08/17/14 08/04/21 Paula Reza MD [address] [facility] [address] [place] [address] PCP - General Internal Medicine 08/05/21 Shahida Sutton APRN METAL MILLING MACHINE OPERATOR Assigned PCP 07/12/14 09/30/21 Carolynn Ramon RN Personal Advocate & Liaison (PAL) 12/17/18 08/07/21 [place] [address] [place] [address] Assigned Musculoskeletal Provider 12/26/19 08/21/20 Brady Lion MD Assigned Heart and Vascular Provider 12/26/19 08/14/20 Nima France PA-C [address] [place] [address] Assigned Surgical Provider 05/19/20 08/21/20 Camille Chandler PA-C [address] [place] [address] Assigned Neuroscience Provider 05/19/20 09/14/20 Anabela Barakat APRN METAL MILLING MACHINE OPERATOR [address] [place] [address] Assigned Heart and Vascular Provider 08/15/20 08/05/21 Nima France PA-C [address] [facility] [address] [place] [address] Assigned Musculoskeletal Provider 08/22/20 11/13/20 [place] [address] [facility] [place], [place] [address] Assigned Musculoskeletal Provider 11/14/20 12/04/20 Fawad York MD [address] [place], [place] [address] Assigned Musculoskeletal Provider 12/05/20 02/05/21 Roopa Almonte MD [address] [facility] [address] [place] [address] Endocrinology, Diabetes, and Metabolism 01/19/21 [place] [address] [facility] [address] [place] [address] Assigned Musculoskeletal Provider 02/06/21 09/16/21 Maryse Burton PA-C [address] [place] [address] Physician Subeditor Dermatology 04/14/21 Marquita Starkey MD [address] [facility] [address] [place] [address] Internal Medicine 05/06/21 05/06/21 Roopa Almonte MD [address] [place] [address] Hospitalist Endocrinology, Diabetes, and Metabolism 05/30/21 Griffin Joshi MD [address] [facility] [address] [place] [address] Cardiovascular Disease 07/25/21 Rina Magallon, RN Lead Agricultural Service Technician 07/29/21 07/11/22 Griffin Joshi MD [address] [facility] [address] [place] [address] Assigned Heart and Vascular Provider 08/06/21 10/07/21 Roopa Almonte MD [address] [facility] 200 [place] [address] Assigned Endocrinology Provider 09/10/21 [place] [address] [facility] [place] [address] Assigned Musculoskeletal Provider 09/17/21 10/14/21 Lydia Bernstein PA-C [address] [facility] [address] [place] [address] Assigned PCP 10/01/21 10/21/21 Rosa Maria Love CHW Community Health Worker 10/06/21 07/11/22 [place] [address] [place] [address] Assigned Musculoskeletal Provider 10/15/21 04/26/23 Paula Reza MD [address] [place] [address] Assigned PCP 10/22/21 12/23/21 Keerthi Miner APRN METAL MILLING MACHINE OPERATOR [address] [place] [address] Assigned Heart and Vascular Provider 10/08/21 02/10/22 Shahida Sutton APRN METAL MILLING MACHINE OPERATOR Assigned PCP 12/24/21 03/24/22 Porsha Michaels APRN METAL MILLING MACHINE OPERATOR [address] [place] [address] Assigned Heart and Vascular Provider 02/11/22 05/12/22 Paula Reza MD [address] [place] [address] Assigned PCP 03/25/22 04/07/22 Shahida Sutton APRN METAL MILLING MACHINE OPERATOR [address] [place] [address] Assigned PCP 04/08/22 06/30/22 Daylin Ludwig, [facility] [address] [place] [address] Cardiac Rehabilitation Therapist 05/16/23 Laurel Velasquez MD [address] [place] [address] Assigned Heart and Vascular Provider 05/13/22 06/30/22 Daylin Ludwig, [facility] [address] [place], [place] [address] Cardiac Rehabilitation Therapist 06/08/22 06/09/23 Paula Reza MD [address] [place], [place] [address] Assigned PCP 07/01/22 07/07/22 Porsha Michaels APRN METAL MILLING MACHINE OPERATOR [address] [place] [address] Assigned Heart and Vascular Provider 07/01/22 07/07/22 Laurel Velasquez MD [address] [place] [address] Assigned Heart and Vascular Provider 07/08/22 08/04/22 Shahida Sutton, DUANE METAL MILLING MACHINE OPERATOR Assigned PCP 07/08/22 09/08/22 Marilin Montaño, METAL MILLING MACHINE OPERATOR [address] [place] [address] Assigned Heart and Vascular Provider 08/05/22 Esha Dewitt MD [address] [place] [address] [address] [place], [place] [address] Gastroenterology 09/06/22 Heather Mosquera MD [address] [place] [address] Internal Medicine 09/06/22 Paula Reza MD [address] [place] [address] Assigned PCP 09/09/22 01/05/23 Esha Dewitt MD [address] [facility] 36 [place], [place] [address] Assigned Gastroenterology Provider 09/23/22 Valdo Escamilla PA-C [address] [facility] [address] [place] [address] Assigned Neuroscience Provider 09/30/22 Nohelia Abarca PA-C [address] [place] [address] Physician Subeditor Gastroenterology 10/03/22 Heather Mosquera MD [address] [facility] [address] [facility] 150 [place] [address] Assigned PCP 01/06/23 Fawad York MD [address] [place], [place] [address] Assigned Musculoskeletal Provider 04/27/23 06/25/23 documented as of this encounter
--- OUTSIDE RECORDS SUMMARY | 2023-10-02 15:47 | XMS_ITS | Encounter Summary ---
Author Organization [facility] Address [address] [place] [address] Care Team Providers Care Yarn Handler Name Role Phone Shahida Sutton APRN TRIMMER HAND Primary Care Provi ford Unavailable Shahida Sutton APRN TRIMMER HAND Unavailable Un available Carolynn Ramon RN Unavailable Augustine Callaway MD Unavailable Brady Lion MD Unavailable Un available Nima France-C Unavailable Camille Chandler PA-C Unavailable [phone] Anabela Barakat APRN TRIMMER HAND Unavailable Nima France PA-C Unavailable Basilio Morillo DO Unavailable [phone] Fawad York MD Unavailable [phone] Roopa Almonte MD Unavailable Augustine Callaway MD Unavailable Maryse Burton PA-C Unavailable [phone] Marquita Starkey MD Unavailable Roopa Almonte MD Unavailable Griffin Joshi MD Unavailable Rina Magallon RN Unavailable [phone] Paula Reza MD Primary Care Provider [phone] Griffin Joshi MD Unavailable Roopa Almonte MD Unavailable [phone] Basilio Morillo DO Unavailable Lydia Bernstein-C Unavailable Rosa Maria Love Unavailable [phone] Augustine Callaway MD Unavailable Paula Reza MD Unavailable Keerthi Miner APRN TRIMMER HAND Unavailable [phone] Herman, Shahida Cummings APRN TRIMMER HAND Unavailable Un available Porsha Michaels APRN TRIMMER HAND Unavailable [phone] Paula Reza MD Unavailable Shahida Sutton APRN TRIMMER HAND Unavailable Un available Daylin Ludwig Unavailable [phone] Laurel Velasquez MD Unavailable [phone] Daylin Ludwig Unavailable [phone] Paula Reza MD Unavailable Porsha Michaels APRN TRIMMER HAND Unavailable [phone] Laurel Velasquez MD Unavailable [phone] Shahida Sutton ANIMAL TAXONOMIST TRIMMER HAND Unavailable Un available Marilin Montaño TRIMMER HAND Unavailable [phone] Esha Dewitt MD Unavailable [phone] EvelineHeather MD Unavailable [phone] Paula Reza MD Unavailable Esha Dewitt MD Unavailable [phone] Andi Valdo Desouza PA-C Unavailable [phone] Nohelia Abarca PA-C Unavailable [phone] Heather Mosquera MD Unavailable Fawad York MD Unavailable Reason for Visit * Reason Comments Medication Refill Encounter Details Date Type Department Care Team (Late st Contact Info) Description 03/31/[address] [address] Shahida Sutton APRN TRIMMER HAND Medication Refill Social History Tobacco Use Types [...] Paige Mena RN - 03/31/2020 11:32 AM FERTILIZING MACHINE OPERATOR Routing refill request to provider for review/approval because: Drug not on the [facility] refill protocol Paige Mena RN ILIZING MACHINE OPERATOR documented in this encounter Plan of [...] documented as of this encounter Care Teams Yarn Handler Relationship Specialty Start Date End Date Shahida Sutton APRN TRIMMER HAND PCP - General Nurse Practitioner 08/17/14 08/04/21 Paula Reza MD [address] [facility] [address] [place] [address] PCP - General Internal Medicine 08/05/21 Shahida Sutton APRN TRIMMER HAND Assigned PCP 07/12/14 09/30/21 Carolynn Ramon RN Personal Advocate & Liaison (PAL) 12/17/18 08/07/21 [place] [address] [place], [place] [address] Assigned Musculoskeletal Provider 12/26/19 08/21/20 Brady Lion MD Assigned Heart and Vascular Provider 12/26/19 08/14/20 Nima France PA-C [address] [place] [address] Assigned Surgical Provider 05/19/20 08/21/20 Camille Chandler PA-C [address] [place] [address] Assigned Neuroscience Provider 05/19/20 09/14/20 Anabela Barakat APRN TRIMMER HAND [address] [place] [address] Assigned Heart and Vascular Provider 08/15/20 08/05/21 Nima France PA-C [address] [facility] 450 [place] [address] Assigned Musculoskeletal Provider 08/22/20 11/13/20 [place] [address] [facility] [place], [place] [address] Assigned Musculoskeletal Provider 11/14/20 12/04/20 Fawad York MD [address] [place], [place] [address] Assigned Musculoskeletal Provider 12/05/20 02/05/21 Roopa Almonte MD [address] [employer] [facility] 200 [place] [address] Endocrinology, Diabetes, and Metabolism 01/19/21 [place] [address] [facility] [address] [place] [address] Assigned Musculoskeletal Provider 02/06/21 09/16/21 Maryse Burton PA-C [address] [place] [address] Physician Crossbow Maker Dermatology 04/14/21 Marquita Starkey MD [address] [facility] [address] [place] [address] Internal Medicine 05/06/21 05/06/21 Roopa Almonte MD [address] [place] [address] Hospitalist Endocrinology, Diabetes, and Metabolism 05/30/21 Griffin Joshi MD [address] [facility] [address] [place] [address] Cardiovascular Disease 07/25/21 Rina Magallon, RN Lead Reed Man 07/29/21 07/11/22 Griffin Joshi MD [address] [facility] [address] [place] [address] Assigned Heart and Vascular Provider 08/06/21 10/07/21 Roopa Almonte MD [address] [address] [place] [address] Assigned Endocrinology Provider 09/10/21 [place] [address] [facility] [place] [address] Assigned Musculoskeletal Provider 09/17/21 10/14/21 Lydia Bernstein PA-C [address] [facility] [address] [place] [address] Assigned PCP 10/01/21 10/21/21 Rosa Maria Love CHW Community Health Worker 10/06/21 07/11/22 [place] [address] [address] [facility] [address] [place] [address] Assigned Musculoskeletal Provider 10/15/21 04/26/23 Paula Reza MD [address] [place] [address] Assigned PCP 10/22/21 12/23/21 Keerthi Miner APRN TRIMMER HAND [address] [place] [address] Assigned Heart and Vascular Provider 10/08/21 02/10/22 Shahida Sutton APRN TRIMMER HAND Assigned PCP 12/24/21 03/24/22 Porsha Michaels APRN TRIMMER HAND [address] [place] [address] Assigned Heart and Vascular Provider 02/11/22 05/12/22 Paula Reza MD [address] [place] [address] Assigned PCP 03/25/22 04/07/22 Shahida Sutton APRN TRIMMER HAND [address] [place] [address] Assigned PCP 04/08/22 06/30/22 Daylin Ludwig, [facility] [address] [place] [address] Cardiac Rehabilitation Therapist 05/16/23 Laurel Velasquez MD [address] [place] [address] Assigned Heart and Vascular Provider 05/13/22 06/30/22 Daylin Ludwig EP [facility] [address] [place] [address] Cardiac Rehabilitation Therapist 06/08/22 06/09/23 Paula Reza MD [address] [place], [place] [address] Assigned PCP 07/01/22 07/07/22 Porsha Michaels APRN TRIMMER HAND [address] [place] [address] Assigned Heart and Vascular Provider 07/01/22 07/07/22 Laurel Velasquez MD [address] [place] [address] Assigned Heart and Vascular Provider 07/08/22 08/04/22 Shahida Sutton, ANIMAL TAXONOMIST TRIMMER HAND Assigned PCP 07/08/22 09/08/22 Marilin Montaño, TRIMMER HAND [address] [place] [address] Assigned Heart and Vascular Provider 08/05/22 Esha Dewitt MD [address] [place] [address] 36 [place], [place] [address] Gastroenterology 09/06/22 Heather Mosquera MD [address] [place] [address] Internal Medicine 09/06/22 Paula Reza MD [address] [place], [place] [address] Assigned PCP 09/09/22 01/05/23 Esha Dewitt MD 420 [facility] 36 [place] [address] Assigned Gastroenterology Provider 09/23/22 Valdo Escamilla PA-C 6363 [facility] 103 [place] [address] Assigned Neuroscience Provider 09/30/22 Nohelia Abarca PA-C [address] [place] [address] Physician Crossbow Maker Gastroenterology 10/03/22 Heather Mosquera MD 6545 [facility] 150 [place] [address] Assigned PCP 01/06/23 Fawad York MD [address] [place], [place] [address] Assigned Musculoskeletal Provider 04/27/23 06/25/23 documented as of this encounter
--- OUTSIDE RECORDS SUMMARY | 2023-10-02 15:47 | XMS_ITS | Encounter Summary ---
Author Organization [facility] Address [address] [place] [address] Care Team Providers Care Soil Expert Name Role Phone Shahida Sutton APRN HOIST CYLINDER LOADER Primary Care Provi ford Unavailable Shahida Sutton APRN HOIST CYLINDER LOADER Unavailable Un available Carolynn Ramon RN Unavailable Augustine Callaway MD Unavailable Brady Lion MD Unavailable Un available Nima France-C Unavailable Camille Chandler PA-C Unavailable [phone] Anabela Barakat APRN HOIST CYLINDER LOADER Unavailable Nima France PA-C Unavailable Basilio Morillo DO Unavailable Fawad York MD Unavailable Roopa Almonte MD Unavailable Augustine Callaway MD Unavailable Maryse Burton PA-C Unavailable Marquita Starkey MD Unavailable Roopa Almonte MD Unavailable Griffin Joshi MD Unavailable Rina Magallon RN Unavailable [phone] Paula Reza MD Primary Care Provider [phone] Griffin Jsohi MD Unavailable Roopa Almonte MD Unavailable [phone] Basilio Morillo DO Unavailable Lydia Bernstein-C Unavailable Rosa Maria Love Unavailable [phone] Augustine Callaway MD Unavailable Paula Reza MD Unavailable Keerthi Miner APRN HOIST CYLINDER LOADER Unavailable [phone] Herman, Shahida Cummings APRN HOIST CYLINDER LOADER Unavailable Un available Porsha Michaels APRN HOIST CYLINDER LOADER Unavailable [phone] Paula Reza MD Unavailable Shahida Sutton APRN HOIST CYLINDER LOADER Unavailable Un available Daylin Ludwig Unavailable [phone] Laurel Velasquez MD Unavailable [phone] Daylin Ludwig Unavailable [phone] Paula Reza MD Unavailable Porsha Michaels APRN HOIST CYLINDER LOADER Unavailable [phone] Laurel Velasquez MD Unavailable [phone] Shahida Sutton FRAME HAND HOIST CYLINDER LOADER Unavailable Un available Marilin Montaño HOIST CYLINDER LOADER Unavailable [phone] Esha Dewitt MD Unavailable [phone] EvelineHeather MD Unavailable [phone] Paula Reza MD Unavailable Esha Dewitt MD Unavailable [phone] Andi Valdo Desouza PA-C Unavailable [phone] Nohelia Abarca PA-C Unavailable [phone] Heather Mosquera MD Unavailable [phone] Fawad York MD Unavailable Reason for Visit * Reason Onset Date Comments Refill Request 01/04/2020 Encounter Details Date Type Department Care Team (Late st Contact Info) Description 01/04/2020 MyC Refill M [address] [address] Shahida Sutton APRN HOIST CYLINDER LOADER Refill Request Social History Tobacco Use Types [...] Out COVID-19 02/15/2020 02/15/2020 02/16/2020 2:32 PM VACUUM FORM OPERATOR Rule Out COVID-19 01/05/2021 01/05/2021 01/06/2021 12:57 PM CDT ESBL 01/05/2021 01/05/2021 Rule Out COVID-19 06/30/2021 06/30/2021 07/01/2021 9:34 AM CDT Rule Out COVID-19 07/25/2021 07/25/2021 07/25/2021 8:02 PM CDT Assessment Noted Time PHQ-9 Depression Total Score: 7 08/13/19 20 1:22 PM CDT documented as of this encounter Care Teams Soil Expert Relationship Specialty Start Date End Date Shahida Sutton APRN HOIST CYLINDER LOADER PCP - General Nurse Practitioner 08/17/14 08/04/21 Paula Reza MD [address] [facility] [address] [place] [address] PCP - General Internal Medicine 08/05/21 Shahida Sutton APRN HOIST CYLINDER LOADER Assigned PCP 07/12/14 09/30/21 Carolynn Ramon, KASIE Personal Advocate & Liaison (PAL) 12/17/18 08/07/21 [place] [address] [address] [facility] [address] [place] [address] Assigned Musculoskeletal Provider 12/26/19 08/21/20 Brady Lion MD Assigned Heart and Vascular Provider 12/26/19 08/14/20 Nima France PA-C [address] [facility] 450 [place] [address] Assigned Surgical Provider 05/19/20 08/21/20 Camille Chandler PA-C [address] [facility] [address] [place] [address] Assigned Neuroscience Provider 05/19/20 09/14/20 Anabela Barakat APRN HOIST CYLINDER LOADER [address] [place] [address] Assigned Heart and Vascular Provider 08/15/20 08/05/21 Nima France PA-C [address] [place] [address] Assigned Musculoskeletal Provider 08/22/20 11/13/20 Ilia Basilio Naik [address] [facility] [place] [address] Assigned Musculoskeletal Provider 11/14/20 12/04/20 Fawad York MD [address] [place], [place] [address] Assigned Musculoskeletal Provider 12/05/20 02/05/21 Roopa Almonte MD [address] [facility] [address] [place] [address] Endocrinology, Diabetes, and Metabolism 01/19/21 [place] [address] [facility] [address] [place] [address] Assigned Musculoskeletal Provider 02/06/21 09/16/21 Maryse Burton PA-C [address] [place] [address] Physician Science Technician Dermatology 04/14/21 Marquita Starkey MD [address] [place] [address] Internal Medicine 05/06/21 05/06/21 Roopa Almonte MD [address] [place] [address] Hospitalist Endocrinology, Diabetes, and Metabolism 05/30/21 Griffin Joshi MD [address] [facility] [address] [place] [address] Cardiovascular Disease 07/25/21 Rina Magallon, RN Lead Varnisher Apprentice 07/29/21 07/11/22 Griffin Joshi MD [address] [facility] [address] [place] [address] Assigned Heart and Vascular Provider 08/06/21 10/07/21 Roopa Almonte MD [address] [place] [address] 200 [place], [place] [address] Assigned Endocrinology Provider 09/10/21 [place] [address] [facility] [place] [address] Assigned Musculoskeletal Provider 09/17/21 10/14/21 Lydia Bernstein PA-C [address] [facility] [address] [place] [address] Assigned PCP 10/01/21 10/21/21 Rosa Maria Love CHW Community Health Worker 10/06/21 07/11/22 [place] [address] [facility] [address] [place] [address] Assigned Musculoskeletal Provider 10/15/21 04/26/23 Paula Reza MD [address] [facility] [address] [place] [address] Assigned PCP 10/22/21 12/23/21 Keerthi Miner APRN HOIST CYLINDER LOADER [address] [place] [address] Assigned Heart and Vascular Provider 10/08/21 02/10/22 Shahida Sutton APRN HOIST CYLINDER LOADER Assigned PCP 12/24/21 03/24/22 Porsha Michaels APRN HOIST CYLINDER LOADER [address] [place] [address] Assigned Heart and Vascular Provider 02/11/22 05/12/22 Paula Reza MD [address] [facility] 200 [place] [address] Assigned PCP 03/25/22 04/07/22 Shahida Sutton APRN HOIST CYLINDER LOADER [address] [place] [address] Assigned PCP 04/08/22 06/30/22 Daylin Ludwig EP [facility] [address] [place] [address] Cardiac Rehabilitation Therapist 05/16/23 Laurel Velasquez MD [address] [place] [address] Assigned Heart and Vascular Provider 05/13/22 06/30/22 Daylin Ludwig EP [facility] [address] [place] [address] Cardiac Rehabilitation Therapist 06/08/22 06/09/23 Paula Reza MD [address] [place] [address] Assigned PCP 07/01/22 07/07/22 Porsha Michaels APRN HOIST CYLINDER LOADER [address] [place] [address] Assigned Heart and Vascular Provider 07/01/22 07/07/22 Laurel Velasquez MD [address] [place] [address] Assigned Heart and Vascular Provider 07/08/22 08/04/22 Shahida Sutton APRN HOIST CYLINDER LOADER Assigned PCP 07/08/22 09/08/22 Marilin Montaño HOIST CYLINDER LOADER [address] [place] [address] Assigned Heart and Vascular Provider 08/05/22 Esha Dewitt MD [address] [place] [id number] Gastroenterology 09/06/22 Heather Mosquera MD [address] [place] [address] Internal Medicine 09/06/22 Paula Reza MD [address] [place] [address] Assigned PCP 09/09/22 01/05/23 Esha Dewitt MD [address] [place] [address] 460915 Assigned Gastroenterology Provider 09/23/22 Valdo Escamilla PA-C [address] [facility] [address] [place] [address] Assigned Neuroscience Provider 09/30/22 Nohelia Abarca PA-C [address] [place], [place] [address] Physician Science Technician Gastroenterology 10/03/22 Heather Mosquera MD [address] [facility] 150 [place], [place] [address] Assigned PCP 01/06/23 Fawad York MD [address] [place], [place] [address] Assigned Musculoskeletal Provider 04/27/23 06/25/23 documented as of this encounter
--- OUTSIDE RECORDS SUMMARY | 2023-10-02 15:47 | XMS_ITS | Encounter Summary ---
Author Organization [facility] Address [address] [place] [address] Care Team Providers Care Coke Crusher Operator Name Role Phone Shahida Sutton APRN WOOD TYPE FINISHER Primary Care Provi ford Unavailable Shahida Sutton APRN WOOD TYPE FINISHER Unavailable Un available Carolynn Ramon RN Unavailable [phone] Augustine Callaway MD Unavailable Brady Lion MD Unavailable Un available Nima France-C Unavailable Camille Chandler PA-C Unavailable [phone] Anabela Barakat APRN WOOD TYPE FINISHER Unavailable Nima France PA-C Unavailable Basilio Morillo [...] Paula Reza MD Unavailable Keerthi Miner APRN WOOD TYPE FINISHER Unavailable [phone] Herman, Shahida Cummings APRN WOOD TYPE FINISHER Unavailable Un available Porsha Michaels APRN WOOD TYPE FINISHER Unavailable [phone] Paula Reza MD Unavailable Shahida Sutton APRN WOOD TYPE FINISHER Unavailable Un available Daylin Ludwig Unavailable [phone] Laurel Velasquez MD Unavailable [phone] Daylin Ludwig Unavailable [phone] Paula Reza MD Unavailable Porsha Michaels APRN WOOD TYPE FINISHER Unavailable [phone] Laurel Velasquez MD Unavailable [phone] Shahida Sutton PRECISION CROP MANAGER WOOD TYPE FINISHER Unavailable Un available Marilin Montaño WOOD TYPE FINISHER Unavailable [phone] Esha Dewitt MD Unavailable [phone] EvelineHeather MD Unavailable [phone] Paula Reza MD Unavailable Esha Dewitt MD Unavailable [phone] Andi Valdo Desouza PA-C Unavailable [phone] Nohelia Abarca PA-C Unavailable [phone] Heather Mosquera MD Unavailable [phone] Fawad York MD Unavailable Reason for Visit * Reason Onset Date Comments Refill Request 11/05/2019 Encounter Details Date Type Department Care Team (Late st Contact Info) Description 11/05/2019 MyC Refill [address] [address] Shahida Sutton APRN WOOD TYPE FINISHER Refill Request Social History Tobacco Use Types [...] 11/05/2019 11:47 AM CDT Prescription approved per [facility] Refill Protocol. 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 Rule Out COVID-19 01/05/2021 01/05/2021 01/06/2021 12:57 PM CDT ESBL 01/05/2021 01/05/2021 Rule Out COVID-19 06/30/2021 06/30/2021 07/01/2021 9:34 AM CDT Rule Out COVID-19 07/25/2021 07/25/2021 07/25/2021 8:02 PM CDT Assessment Noted Time PHQ-9 Depression Total Score: 7 08/13/19 20 1:22 PM CDT documented as of this encounter Care Teams Coke Crusher Operator Relationship Specialty Start Date End Date Shahida Sutton APRN WOOD TYPE FINISHER PCP - General Nurse Practitioner 08/17/14 08/04/21 Paula Reza MD [facility] [address] [place] [address] PCP - General Internal Medicine 08/05/21 Shahida Sutton APRN WOOD TYPE FINISHER Assigned PCP 07/12/14 09/30/21 Carolynn Ramon, KASIE Personal Advocate & Liaison (PAL) 12/17/18 08/07/21 [place] [address] [place] [address] Assigned Musculoskeletal Provider 12/26/19 08/21/20 Brady Lion MD Assigned Heart and Vascular Provider 12/26/19 08/14/20 Nima France PA-C [address] [facility] 450 [place] [address] Assigned Surgical Provider 05/19/20 08/21/20 Camille Chandler PA-C [address] [facility] [address] [place] [address] Assigned Neuroscience Provider 05/19/20 09/14/20 Anabela Barakat APRN WOOD TYPE FINISHER [address]00 [place] [address] Assigned Heart and Vascular Provider 08/15/20 08/05/21 Nima France PA-C [address] [facility] 450 [place] [address] Assigned Musculoskeletal Provider 08/22/20 11/13/20 [place] [address] [place] [address] Assigned Musculoskeletal Provider 11/14/20 12/04/20 Fawad York MD [address] [place] [address] Assigned Musculoskeletal Provider 12/05/20 02/05/21 Roopa Almonte MD [address] [facility] 200 [place] [address] Endocrinology, Diabetes, and Metabolism 01/19/21 [place] [address] [facility] [address] [place] [address] Assigned Musculoskeletal Provider 02/06/21 09/16/21 Maryse Burton PA-C [address] [place] [address] Physician Ceramics 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 Dermatology 04/14/21 Marquita Starkey MD [address] [facility] 200 [place] [address] Internal Medicine 05/06/21 05/06/21 Roopa Almonte MD [address] [facility] 200 [place] [address] Hospitalist Endocrinology, Diabetes, and Metabolism 05/30/21 Griffin Joshi MD [address] [facility] [address] [place] [address] Cardiovascular Disease 07/25/21 Rina Magallon, RN Lead Sample Collector 07/29/21 07/11/22 Griffin Joshi MD [address] [facility] [address] [place] [address] Assigned Heart and Vascular Provider 08/06/21 10/07/21 Roopa Almonte MD [address] [facility] 200 [place], [place] [address] Assigned Endocrinology Provider 09/10/21 [place] [address] [facility] [place] [address] Assigned Musculoskeletal Provider 09/17/21 10/14/21 Lydia Bernstein PA-C [address] [place] [address] Assigned PCP 10/01/21 10/21/21 Rosa Maria Love CHW Community Health Worker 10/06/21 07/11/22 [place] [address] [place] [address] Assigned Musculoskeletal Provider 10/15/21 04/26/23 Paula Reza MD [address] [facility] [address] [place], [place] [address] Assigned PCP 10/22/21 12/23/21 Keerthi Miner APRN WOOD TYPE FINISHER [address] [place] [address] Assigned Heart and Vascular Provider 10/08/21 02/10/22 Shahida Sutton APRN WOOD TYPE FINISHER Assigned PCP 12/24/21 03/24/22 Porsha Michaels APRN WOOD TYPE FINISHER [address] [place] [address] Assigned Heart and Vascular Provider 02/11/22 05/12/22 Paula Reza MD [address] [facility] [address] [place] [address] Assigned PCP 03/25/22 04/07/22 Shahida Sutton APRN WOOD TYPE FINISHER [address] [place] [address] Assigned PCP 04/08/22 06/30/22 Daylin Ludwig, [facility] [employer] [address] [place] [address] Cardiac Rehabilitation Therapist 05/16/23 Laurel Velasquez MD [address] [place] [address] Assigned Heart and Vascular Provider 05/13/22 06/30/22 Daylin Ludwig, [facility] [employer] [address] [place] [address] Cardiac Rehabilitation Therapist 06/08/22 06/09/23 Paula Reza MD [address] [facility] [address] [place] [address] Assigned PCP 07/01/22 07/07/22 Porsha Michaels APRN WOOD TYPE FINISHER [address] [place] [address] Assigned Heart and Vascular Provider 07/01/22 07/07/22 Laurel Velasquez MD [address] [place] [address] Assigned Heart and Vascular Provider 07/08/22 08/04/22 Shahida Sutton APRN WOOD TYPE FINISHER Assigned PCP 07/08/22 09/08/22 Marilin Montaño, WOOD TYPE FINISHER [address] [place] [address] Assigned Heart and Vascular Provider 08/05/22 Esha Dewitt MD [address] [address] MD Gastroenterology 09/06/22 Heather Mosquera MD [address] [place], [place] [address] Internal Medicine 09/06/22 Paula Reza MD [address] [facility] [address] [place], [place] [address] Assigned PCP 09/09/22 01/05/23 Esha Dewitt MD [address] 6[address] Assigned Gastroenterology Provider 09/23/22 Valdo Escamilla PA-C [address] [facility] [address] [place], [place] [address] Assigned Neuroscience Provider 09/30/22 Nohelia Abarca PA-C [address] [place], [place] 3[address] Physician Ceramics 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 Gastroenterology 10/03/22 Heather Mosquera MD [address] [place], [place] [address] Assigned PCP 01/06/23 Fawad York MD [address] [place], [place] 1267[address] Assigned Musculoskeletal Provider 04/27/23 06/25/23 documented as of this encounter
--- OUTSIDE RECORDS SUMMARY | 2023-10-02 15:47 | XMS_ITS | Encounter Summary ---
Author Organization [place] Address [address] [place] [address] Care Team Providers Care Baseball Hand Sewer Name Role Phone Shahida Sutton APRN ZMT OPERATOR Primary Care Provi ford Unavailable Shahida Sutton APRN ZMT OPERATOR Unavailable Un available Carolynn Ramon RN Unavailable Augustine Callaway MD Unavailable Brady Lion MD Unavailable Un available Nima France-C Unavailable Camille Chandler PA-C Unavailable [phone] Anabela Barakat APRN ZMT OPERATOR Unavailable Nima France PA-C Unavailable Basilio Morillo DO Unavailable [phone] Fawad York MD Unavailable Roopa Almonte MD Unavailable Augustine Callaway MD Unavailable Maryse Burtno PA-C Unavailable [phone] Marquita Starkey MD Unavailable [phone] Roopa Almonte MD Unavailable Griffin Joshi MD Unavailable Rina Magallon RN Unavailable [phone] Paula Reza MD Primary Care Provider [phone] Griffin Joshi MD Unavailable Roopa Almonte MD Unavailable [phone] Basilio Morillo DO Unavailable Lydia Bernstein-C Unavailable Rosa Maria Love Unavailable [phone] Augustine Callaway MD Unavailable Paula Reza MD Unavailable Keerthi Miner APRN ZMT OPERATOR Unavailable [phone] Herman, Shahida Cummings APRN ZMT OPERATOR Unavailable Un available Porsha Michaels APRN ZMT OPERATOR Unavailable [phone] Paula Reza MD Unavailable Shahida Sutton APRN ZMT OPERATOR Unavailable Un available Daylin Ludwig Unavailable [phone] Laurel Velasquez MD Unavailable [phone] Daylin Ludwig Unavailable [phone] Paula Reza MD Unavailable Porsha Michaels APRN ZMT OPERATOR Unavailable [phone] Laurel Velasquez MD Unavailable [phone] Shahida Sutton FRAMING CONSULTANT ZMT OPERATOR Unavailable Un available Marilin Montaño ZMT OPERATOR Unavailable [phone] Esha Dewitt MD Unavailable [phone] EvelineHeather MD Unavailable [phone] Paula Reza MD Unavailable Esha Dewitt MD Unavailable [phone] Valdo Escamilla PA-C Unavailable Nohelia Abarca PA-C Unavailable [phone] Heather Mosquera MD Unavailable Fawad York MD Unavailable [phone] Encounter Details Date Type Department Care Team (Late st Contact Info) Description 02/05/2020 Documentation Only [address] [phone] Shahida Sutton APRN ZMT OPERATOR Social History Tobacco Use Types Packs/Day [...] COVID-19? 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 Rule Out COVID-19 01/05/2021 01/05/2021 01/06/2021 12:57 PM CDT ESBL 01/05/2021 01/05/2021 Rule Out COVID-19 06/30/2021 06/30/2021 07/01/2021 9:34 AM CDT Rule Out COVID-19 07/25/2021 07/25/2021 07/25/2021 8:02 PM CDT Assessment Noted Time PHQ-9 Depression Total Score: 7 08/13/19 20 1:22 PM CDT documented as of this encounter Care Teams Baseball Hand Sewer Relationship Specialty Start Date End Date Shahida Sutton APRN ZMT OPERATOR PCP - General Nurse Practitioner 08/17/14 08/04/21 Paula Reza MD [address] [facility] [address] [place] [address] PCP - General Internal Medicine 08/05/21 Shahida Sutton APRN ZMT OPERATOR Assigned PCP 07/12/14 09/30/21 Carolynn Ramon RN Personal Advocate & Liaison (PAL) 12/17/18 08/07/21 [place] [address] [place] [address] Assigned Musculoskeletal Provider 12/26/19 08/21/20 Brady Lion MD Assigned Heart and Vascular Provider 12/26/19 08/14/20 Nima France PA-C [address] [place] [address] Assigned Surgical Provider 05/19/20 08/21/20 Camille Chandler PA-C [address] [place] [address] Assigned Neuroscience Provider 05/19/20 09/14/20 Anabela Barakat APRN ZMT OPERATOR [address] [place] [address] Assigned Heart and Vascular Provider 08/15/20 08/05/21 Nima France PA-C [address] [facility] [address] [place] [address] Assigned Musculoskeletal Provider 08/22/20 11/13/20 [place] [address] [place] [address] Assigned Musculoskeletal Provider 11/14/20 12/04/20 Fawad York MD [address] [place], [place] [address] Assigned Musculoskeletal Provider 12/05/20 02/05/21 Roopa Almonte MD [address] [facility] 200 [place] [address] Endocrinology, Diabetes, and Metabolism 01/19/21 [place] [address] [facility] [address] [place] [address] Assigned Musculoskeletal Provider 02/06/21 09/16/21 Maryse Burton PA-C [address] [place] [address] Physician Geography Faculty Member Dermatology 04/14/21 Marquita Starkey MD [address] [facility] [address] [place], [place] [address] Internal Medicine 05/06/21 05/06/21 Roopa Almonte MD [address] [facility] [address] [place], [place] [address] Hospitalist Endocrinology, Diabetes, and Metabolism 05/30/21 Griffin Joshi MD [address] [facility] [address] [place] [address] Cardiovascular Disease 07/25/21 Rina Magallon, RN Lead Coroner Forensic Technician 07/29/21 07/11/22 Griffin Joshi MD [address] [place] [address] Assigned Heart and Vascular Provider 08/06/21 10/07/21 Roopa Almonte MD [address] [facility] 200 [place], [place] [address] Assigned Endocrinology Provider 09/10/21 [place] [address] [facility] [address] Assigned Musculoskeletal Provider 09/17/21 10/14/21 Lydia Bernstein PA-C [address] [facility] 150 [place] [address] Assigned PCP 10/01/21 10/21/21 Rosa Maria Love CHW Community Health Worker 10/06/21 07/11/22 [place] [address] [place] [address] Assigned Musculoskeletal Provider 10/15/21 04/26/23 Paual Reza MD [address] [place] [address] Assigned PCP 10/22/21 12/23/21 Keerthi Miner APRN ZMT OPERATOR [address] [place] [address] Assigned Heart and Vascular Provider 10/08/21 02/10/22 Shahida Sutton APRN ZMT OPERATOR Assigned PCP 12/24/21 03/24/22 Porsha Michaels APRN ZMT OPERATOR [address] [address] Assigned Heart and Vascular Provider 02/11/22 05/12/22 Paula Reza MD [address] [place] [address] Assigned PCP 03/25/22 04/07/22 Shahida Sutton APRN ZMT OPERATOR [address] [address] Assigned PCP 04/08/22 06/30/22 Daylin Ludwig, EP [facility] [address] [address] Cardiac Rehabilitation Therapist 05/16/23 Laurel Velasquez MD [address] [address] Assigned Heart and Vascular Provider 05/13/22 06/30/22 Daylin Ludwig, EP [facility] [address] [address] Cardiac Rehabilitation Therapist 06/08/22 06/09/23 Paula Reza MD [address] [place], [place] [address] Assigned PCP 07/01/22 07/07/22 Porsha Michaels APRN ZMT OPERATOR [address] [place] [address] Assigned Heart and Vascular Provider 07/01/22 07/07/22 Laurel Velasquez MD [address] [place] [address] Assigned Heart and Vascular Provider 07/08/22 08/04/22 Shahida Sutton APRN ZMT OPERATOR Assigned PCP 07/08/22 09/08/22 Marilin Montaño, ZMT OPERATOR [address] [place] [address] Assigned Heart and Vascular Provider 08/05/22 Esha Dewitt MD [address] [place] [address] 36 [place], [place] [address] Gastroenterology 09/06/22 Heather Mosquera MD [address] [place] [address] Internal Medicine 09/06/22 Paula Reza MD [address] [place] [address] Assigned PCP 09/09/22 01/05/23 Esha Dewitt MD [address] [facility] 36 [place], [place] [address] Assigned Gastroenterology Provider 09/23/22 aVldo Escamilla PA-C [address] [facility] [address] [place] [address] Assigned Neuroscience Provider 09/30/22 Nohelia Abarca PA-C [address] [place] [address] Physician Geography Faculty Member Gastroenterology 10/03/22 Heather Mosquera MD [address] [place] [address] Assigned PCP 01/06/23 Fawad York MD [address] [place], [place] [address] Assigned Musculoskeletal Provider 04/27/23 06/25/23 documented as of this encounter
--- OUTSIDE RECORDS SUMMARY | 2023-10-02 15:47 | XMS_ITS | Encounter Summary ---
Author Organization [place] Address [address] [place] [address] Care Team Providers Care Insurance Law Specialist Name Role Phone Shahida Sutton APRN LOOM CHECKER Primary Care Provi ford Unavailable Shahida Sutton APRN LOOM CHECKER Unavailable Un available Carolynn Ramon RN Unavailable Augustine Callaway MD Unavailable Brady Lion MD Unavailable Un available Nima France-C Unavailable Camille Chandler PA-C Unavailable [phone] Anabela Barakat APRN LOOM CHECKER Unavailable Nima France PA-C Unavailable Basilio Morillo DO Unavailable [phone] Fawad York MD Unavailable Roopa Almonte MD Unavailable Augustine Callaway MD Unavailable Maryse Burton PA-C Unavailable Marquita Starkey MD Unavailable Roopa Almonte MD Unavailable Griffin Joshi MD Unavailable Rina Magallon RN Unavailable [phone] Paula Reza MD Primary Care Provider [phone] Griffin Joshi MD Unavailable Roopa Almonte MD Unavailable [phone] Basilio Morillo DO Unavailable Lydia Bernstein-C Unavailable Rosa Maria Love Unavailable [phone] Augustine Callaway MD Unavailable Paula Reza MD Unavailable Keerthi Miner APRN LOOM CHECKER Unavailable [phone] Herman, Shahida Cummings APRN LOOM CHECKER Unavailable Un available Porsha Michaels APRN LOOM CHECKER Unavailable [phone] Paula Reza MD Unavailable Shahida Sutton APRN LOOM CHECKER Unavailable Un available Daylin Ludwig Unavailable [phone] Laurel Velasquez MD Unavailable [phone] Daylin Ludwig Unavailable [phone] Paula Reza MD Unavailable Porsha Michaels APRN LOOM CHECKER Unavailable [phone] Laurel Velasquez MD Unavailable [phone] Shahida Sutton VERTICAL ROLL OPERATOR LOOM CHECKER Unavailable Un available Marilin Montaño LOOM CHECKER Unavailable [phone] Esha Dewitt MD Unavailable [phone] EvelineHeather MD Unavailable [phone] Paula Reza MD Unavailable Esha Dewitt MD Unavailable [phone] Valdo Escamilla PA-C Unavailable Nohelia Abarca PA-C Unavailable [phone] Heather Mosquera MD Unavailable [phone] Fawad York MD Unavailable Reason for Visit * Reason Comments Medication Refill Encounter Details Date Type Department Care Team (Late st Contact Info) Description 09/03/2019 Refill [facility] [address] [place] [phone] Vesta Aguayo PA-C [id number] [place] [address] Medication Refill Social History Tobacco Use Types [...] Out COVID-19 02/15/2020 02/15/2020 02/16/2020 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 Rule Out COVID-19 01/05/2021 01/05/2021 01/06/2021 12:57 PM CDT ESBL 01/05/2021 01/05/2021 Rule Out COVID-19 06/30/2021 06/30/202107/01/2021 9:34 AM CDT Rule Out COVID-19 07/25/2021 07/25/2021 07/25/2021 8:02 PM CDT Assessment Noted Time PHQ-9 Depression Total Score: 7 08/13/19 20 1:22 PM CDT documented as of this encounter Care Teams Insurance Law Specialist Relationship Specialty Start Date End Date Shahida Sutton APRN LOOM CHECKER PCP - General Nurse Practitioner 08/17/14 08/04/21 Paula Reza MD [address] [place] [address] PCP - General Internal Medicine 08/05/21 Shahida Sutton APRN LOOM CHECKER Assigned PCP 07/12/14 09/30/21 Carolynn Ramon RN Personal Advocate & Liaison (PAL) 12/17/18 08/07/21 [place] [address] [address] [place] [address] Assigned Musculoskeletal Provider 12/26/19 08/21/20 Brady Lion MD Assigned Heart and Vascular Provider 12/26/19 08/14/20 Nima France PA-C [address] [place] [address] Assigned Surgical Provider 05/19/20 08/21/20 Camille Chandler PA-C [address] [place] [address] Assigned Neuroscience Provider 05/19/20 09/14/20 StoesAnabela win APRN CNP [address] [place] [address] Assigned Heart and Vascular Provider 08/15/20 08/05/21 Nima France PA-C [address] [facility] 450 [place] [address] Assigned Musculoskeletal Provider 08/22/20 11/13/20 [place] [address] [facility] [place] [address] Assigned Musculoskeletal Provider 11/14/20 12/04/20 Fawad York MD [address] [place], [place] [address] Assigned Musculoskeletal Provider 12/05/20 02/05/21 Roopa Almonte MD [address] [facility] 200 [place], [place] [address] Endocrinology, Diabetes, and Metabolism 01/19/21 [place] [address] [facility] 300 [place] [address] Assigned Musculoskeletal Provider 02/06/21 09/16/21 Maryse Burton PA-C [address] [place] [address] Physician Medical Transport Specialist Dermatology 04/14/21 Marquita Starkey MD [address] [facility] 200 [place], [place] [address] Internal Medicine 05/06/21 05/06/21 Roopa Almonte MD [address] [facility] 200 [place] [address] Hospitalist Endocrinology, Diabetes, and Metabolism 05/30/21 Griffin Joshi MD [address] [place] [address] Cardiovascular Disease 07/25/21 Rina Magallon, RN Lead Dermatologist 07/29/21 07/11/22 Griffin Joshi MD [address] [facility] [address] [place] [address] Assigned Heart and Vascular Provider 08/06/21 10/07/21 Roopa Almonte MD [address] [facility] 200 [place] [address] Assigned Endocrinology Provider 09/10/21 [place] [address] [facility] [place] [address] Assigned Musculoskeletal Provider 09/17/21 10/14/21 Lydia Bernstein PA-C [address] [facility] [address] [place] [address] Assigned PCP 10/01/21 10/21/21 Rosa Maria Love CHW Community Health Worker 10/06/21 07/11/22 [place] [address] [address] [facility] 300 [place] [address] Assigned Musculoskeletal Provider 10/15/21 04/26/23 Paula Reza MD [address] [place] [address] Assigned PCP 10/22/21 12/23/21 Keerthi Miner APRN LOOM CHECKER [address] [place] [address] Assigned Heart and Vascular Provider 10/08/21 02/10/22 Shahida Sutton APRN LOOM CHECKER Assigned PCP 12/24/21 03/24/22 Porsha Michaels APRN LOOM CHECKER [address] [place] [address] Assigned Heart and Vascular Provider 02/11/22 05/12/22 Paula Reza MD [address] [place] [address] Assigned PCP 03/25/22 04/07/22 Shahida Sutton APRN LOOM CHECKER [address] [place] [address] Assigned PCP 04/08/22 06/30/22 Daylin Ludwig, [facility] [address] [place] [address] Cardiac Rehabilitation Therapist 05/16/23 Laurel Velasquez MD [address] [address] Assigned Heart and Vascular Provider 05/13/22 06/30/[address] [facility] [address] [place], [place] [address] Cardiac Rehabilitation Therapist 06/08/22 06/09/23 Paula Reza MD [address] [place] [address] Assigned PCP 07/01/22 07/07/22 Porsha Michaels APRN LOOM CHECKER [address] [place] [address] Assigned Heart and Vascular Provider 07/01/22 07/07/22 Laurel Velasquez MD [address] [place] [address] Assigned Heart and Vascular Provider 07/08/22 08/04/22 Shahida Sutton APRN LOOM CHECKER Assigned PCP 07/08/22 09/08/22 Marilin Montaño, LOOM CHECKER [address] [place] [address] Assigned Heart and Vascular Provider 08/05/22 Esha Dewitt MD [address] [place] [address] [address] [place], [place] [address] Gastroenterology 09/06/22 Heather Mosquera MD [address] [place] [address] Internal Medicine 09/06/22 Paula Reza MD [address] [place] [address] Assigned PCP 09/09/22 01/05/23 Esha Dewitt MD 420 [facility] [address] [place] [address] Assigned Gastroenterology Provider 09/23/22 Valdo Escamilla PA-C [address] [facility] 103 [place] [address] Assigned Neuroscience Provider 09/30/22 Nohelia Abarca PA-C [address]50 [place] [address] Physician Medical Transport Specialist Gastroenterology 10/03/22 Heather Mosquera MD [address]45 [facility] 150 [place] [address] Assigned PCP 01/06/23 Fawad York MD 909 [place] [address] Assigned Musculoskeletal Provider 04/27/23 06/25/23 documented as of this encounter
--- OUTSIDE RECORDS SUMMARY | 2023-10-02 15:47 | XMS_ITS | Encounter Summary ---
Author Organization [facility] [place] [facility] Address [address] [place] [address] Care Team Providers Care Flow Match Sofa Cutter Name Role Phone Shahida Sutton APRN .NET DEVELOPER Primary Care Provi ford Unavailable Shahida Sutton APRN .NET DEVELOPER Unavailable Un available Carolynn Ramon RN Unavailable Augustine Callaway MD Unavailable Brady Loin MD Unavailable Un available Nima France-C Unavailable Camille Chandler PA-C Unavailable [phone] Anabela Barakat APRN .NET DEVELOPER Unavailable Nima France PA-C Unavailable Basilio Morillo DO Unavailable [phone] Fawad York MD Unavailable Roopa Almonte MD Unavailable [phone] Augustine Callaway MD Unavailable Maryse Burton PA-C Unavailable Marquita Starkey MD Unavailable Roopa Almonte MD Unavailable Griffin Joshi MD Unavailable Rina Magallon RN Unavailable [phone] Paula Reza MD Primary Care Provider [phone] Griffin Joshi MD Unavailable Roopa Almonte MD Unavailable [phone] Basilio Morillo DO Unavailable Lydia Bernstein-C Unavailable Rosa Maria Love Unavailable [phone] Augustine Callaway MD Unavailable Paula Reza MD Unavailable Keerthi Miner APRN .NET DEVELOPER Unavailable [phone] Herman, Shahida Cummings APRN .NET DEVELOPER Unavailable Un available Porsha Micheals APRN .NET DEVELOPER Unavailable [phone] Paula Reza MD Unavailable Shahida Sutton APRN .NET DEVELOPER Unavailable Un available Daylin Ludwig Unavailable [phone] Laurel Velasquez MD Unavailable [phone] Daylin Ludwig Unavailable [phone] Paula Reza MD Unavailable Porsha Michaels APRN .NET DEVELOPER Unavailable [phone] Laurel Velasquez MD Unavailable [phone] Shahida Sutton CONSTRUCTION PLUMBER .NET DEVELOPER Unavailable Un available Marilin Montaño .NET DEVELOPER Unavailable [phone] Esha Dewitt MD Unavailable [phone] EvelineHeather MD Unavailable [phone] Paula Reza MD Unavailable Esha Dewitt MD Unavailable [phone] Valdo Escamilla PA-C Unavailable [phone] Nohelia Abarca PA-C Unavailable [phone] Heather Mosquera MD Unavailable Fawad York MD Unavailable [phone] Encounter Details Date Type Department Care Team (Late st Contact Info) Description 09/30/2019 MyC Medical Advice [address] [address] Emma Bryan MA Social History [...] Out COVID-19 02/15/2020 02/15/2020 02/16/2020 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 Rule Out COVID-19 01/05/2021 01/05/2021 01/06/2021 12:57 PM CDT ESBL 01/05/2021 01/05/2021 Rule Out COVID-19 06/30/2021 06/30/2021 07/01/2021 9:34 AM CDT Rule Out COVID-19 07/25/2021 07/25/2021 07/25/2021 8:02 PM CDT Assessment Noted Time PHQ-9 Depression Total Score: 7 08/13/19 20 1:22 PM CDT documented as of this encounter Care Teams Flow Match Sofa Cutter Relationship Specialty Start Date End Date Shahida Sutton APRN .NET DEVELOPER PCP - General Nurse Practitioner 08/17/14 08/04/21 Paula Reza MD [address] [facility] 200 [place] [address] PCP - General Internal Medicine 08/05/21 Shahida Sutton APRN .NET DEVELOPER Assigned PCP 07/12/14 09/30/21 Carolynn Ramon RN Personal Advocate & Liaison (PAL) 12/17/18 08/07/21 [place] [address] [place] [address] Assigned Musculoskeletal Provider 12/26/19 08/21/20 Brady Lion MD Assigned Heart and Vascular Provider 12/26/19 08/14/20 Nima France PA-C [address] [place] [address] Assigned Surgical Provider 05/19/20 08/21/20 Camille Chandler PA-C [address] [place] [address] Assigned Neuroscience Provider 05/19/20 09/14/20 Anabela Barakat APRN .NET DEVELOPER 1700 [place] [address] Assigned Heart and Vascular Provider 08/15/20 08/05/21 Nima France PA-C [address] [facility] [address] [place] [address] Assigned Musculoskeletal Provider 08/22/20 11/13/20 [place] [address] [facility] [place] [address] Assigned Musculoskeletal Provider 11/14/20 12/04/20 Fawad York MD [address] [place], [place] [address] Assigned Musculoskeletal Provider 12/05/20 02/05/21 Roopa Almonte MD [address] [facility] 200 [place] [address] Endocrinology, Diabetes, and Metabolism 01/19/21 [place] [address] [facility] 300 [place] [address] Assigned Musculoskeletal Provider 02/06/21 09/16/21 Maryse Burton PA-C [address]200 [place] [address] Physician Field Administrative Assistant Dermatology 04/14/21 Marquita Starkey MD [address] [facility] [address] [place], [place] [address] Internal Medicine 05/06/21 05/06/21 Roopa Almonte MD [address] [facility] [address] [place], [place] [address] Hospitalist Endocrinology, Diabetes, and Metabolism 05/30/21 Griffin Joshi MD [address] [facility] [address] [place] [address] Cardiovascular Disease 07/25/21 Rina Magallon, RN Lead Director Of Labor And Delivery 07/29/21 07/11/22 Griffin Joshi MD [address] [place] [address] Assigned Heart and Vascular Provider 08/06/21 10/07/21 Roopa Almonte MD [address] [facility] 200 [place] [address] Assigned Endocrinology Provider 09/10/21 [place] [address] [facility] [place] [address] Assigned Musculoskeletal Provider 09/17/21 10/14/21 Lydia Bernstein PA-C [address] [facility] [address] [place] [address] Assigned PCP 10/01/21 10/21/21 Rosa Maria Love CHW Community Health Worker 10/06/21 07/11/22 [place] [address] [facility] [address] [place] [address] Assigned Musculoskeletal Provider 10/15/21 04/26/23 Paula Reza MD [address] [place] [address] Assigned PCP 10/22/21 12/23/21 Keerthi Miner APRN .NET DEVELOPER [address] [place] [address] Assigned Heart and Vascular Provider 10/08/21 02/10/22 Shahida Sutton APRN .NET DEVELOPER Assigned PCP 12/24/21 03/24/22 Porsha Michaels APRN .NET DEVELOPER [address] [place] [place] [address] Assigned Heart and Vascular Provider 02/11/22 05/12/22 Paula Reza MD [address] [place] [address] Assigned PCP 03/25/22 04/07/22 Shahida Sutton APRN .NET DEVELOPER [address] [place] [address] Assigned PCP 04/08/22 06/30/22 Daylin Ludwig, EP [facility] [address] [place] [address] Cardiac Rehabilitation Therapist 05/16/23 Laurel Velasquez MD [address] [place] [place] [address] Assigned Heart and Vascular Provider 05/13/22 06/30/22 Daylin Ludwig, EP [facility] [address] [place] [place] [address] Cardiac Rehabilitation Therapist 06/08/22 06/09/23 Paula Reza MD [address] [place], [place] [address] Assigned PCP 07/01/22 07/07/22 Porsha Michaels APRN .NET DEVELOPER [address] [place] [address] Assigned Heart and Vascular Provider 07/01/22 07/07/22 Laurel Velasquez MD [address] [place] [address] Assigned Heart and Vascular Provider 07/08/22 08/04/22 Shahida Sutton APRN .NET DEVELOPER Assigned PCP 07/08/22 09/08/22 Marilin Montaño, .NET DEVELOPER [address] [place] [address] Assigned Heart and Vascular Provider 08/05/22 Esha Dewitt MD [address] [place] [address] 36 [place], [place] [address] Gastroenterology 09/06/22 Heather Mosquera MD [address] [place] [address] Internal Medicine 09/06/22 Paula Reza MD [address] [place] [address] Assigned PCP 09/09/22 01/05/23 Esha Dewitt MD 420 [facility] 36 [place], [place] [address] Assigned Gastroenterology Provider 09/23/22 Valdo Escamilla PA-C [address] [facility] [address] [place] [address] Assigned Neuroscience Provider 09/30/22 Nohelia Abarca PA-C [address] [place] [address] Physician Field Administrative Assistant Gastroenterology 10/03/22 Heather Mosquera MD [address] [place] [address] Assigned PCP 01/06/23 Fawad York MD [address] [place], [place] [address] Assigned Musculoskeletal Provider 04/27/23 06/25/23 documented as of this encounter
--- OUTSIDE RECORDS SUMMARY | 2023-10-02 15:47 | XMS_ITS | Encounter Summary ---
Author Organization [place] Address [address] [place] [address] Care Team Providers Care Counter Roller Name Role Phone Shahida Sutton APRN CHILD DAY CARE TEACHER Primary Care Provi ford Unavailable Shahida Sutton APRN CHILD DAY CARE TEACHER Unavailable Un available Carolynn Ramon RN Unavailable Augustine Callaway MD Unavailable Brady Lion MD Unavailable Un available Nima France-C Unavailable Camille Chandler PA-C Unavailable [phone] Anabela Barakat APRN CHILD DAY CARE TEACHER Unavailable Nima France PA-C Unavailable Basilio Morillo DO Unavailable Fawad York MD Unavailable Roopa Almonte MD Unavailable Augustine Callaway MD Unavailable Maryse Burton PA-C Unavailable Marquita Starkey MD Unavailable [phone] Roopa Almonte MD Unavailable Griffin Joshi MD Unavailable Rina Magallon RN Unavailable [phone] Paula Reza MD Primary Care Provider [phone] Griffin Joshi MD Unavailable Roopa Almonte MD Unavailable [phone] Basilio Morillo DO Unavailable Lydia Bernstein-C Unavailable Rosa Maria Love Unavailable [phone] Augustine Callaway MD Unavailable Paula Reza MD Unavailable Keerthi Miner APRN CHILD DAY CARE TEACHER Unavailable [phone] Herman, Shahida Cummings APRN CHILD DAY CARE TEACHER Unavailable Un available Porsha Michaels APRN CHILD DAY CARE TEACHER Unavailable [phone] Paula Reza MD Unavailable Shahida Sutton APRN CHILD DAY CARE TEACHER Unavailable Un available Daylin Ludwig Unavailable [phone] Laurel Velasquez MD Unavailable [phone] Daylin Ludwig Unavailable [phone] Paula Reza MD Unavailable Porsha Michaels APRN CHILD DAY CARE TEACHER Unavailable [phone] Laurel Velasquez MD Unavailable [phone] Shahida Sutton SALES MGR CHILD DAY CARE TEACHER Unavailable Un available Marilin Montaño CHILD DAY CARE TEACHER Unavailable [phone] Esha Dewitt MD Unavailable [phone] EvelineHeather MD Unavailable [phone] Paula Reza MD Unavailable Esha Dewitt MD Unavailable [phone] Valdo Escamilla PA-C Unavailable Nohelia Abarca PA-C Unavailable [phone] Heather Mosquera MD Unavailable Fawad York MD Unavailable [phone] Encounter Details Date Type Department Care Team [...] No / Unsure 05/03/2020 9:33 AM MEDICAL PRACTICE ASSISTANT documented as of this encounter Plan [...] documented as of this encounter Care Teams Counter Roller Relationship Specialty Start Date End Date Shahida Sutton APRN CHILD DAY CARE TEACHER PCP - General Nurse Practitioner 6/15/15 6/2/22 Paula Reza MD [address] [facility] 200 [place] [address] PCP - General Internal Medicine 08/05/21 Shahida Sutton APRN CHILD DAY CARE TEACHER Assigned PCP 07/12/14 09/30/21 Carolynn Ramon RN Personal Advocate & Liaison (PAL) 12/17/18 08/07/21 [place] [address] [place] [address] Assigned Musculoskeletal Provider 12/26/19 08/21/20 Brady Lion MD Assigned Heart and Vascular Provider 12/26/19 08/14/20 Nima France PA-C [address] [place] [address] Assigned Surgical Provider 05/19/20 08/21/20 Camille Chandler PA-C [address] [facility] [address] [place] [address] Assigned Neuroscience Provider 05/19/20 09/14/20 Anabela Barakat APRN CHILD DAY CARE TEACHER 1700 [place] [address] Assigned Heart and Vascular Provider 08/15/20 08/05/21 Nima France PA-C [address] [place] [address]115 Assigned Musculoskeletal Provider 08/22/20 11/13/20 [place] [address] [facility] [place] [address] Assigned Musculoskeletal Provider 11/14/20 12/04/20 Fawad York MD [address] [place] [address] Assigned Musculoskeletal Provider 12/05/20 02/05/21 Roopa Almonte MD [address] [facility] 200 [place] [address] Endocrinology, Diabetes, and Metabolism 01/19/21 [place] [address] [facility] [facility] 300 [place] [address] Assigned Musculoskeletal Provider 02/06/21 09/16/21 Maryse Burton, PA-C 5200 [place] [address] Physician Substation Design Draftsperson Dermatology 04/14/21 Marquita Starkey MD [address] [facility] 200 [place] [address] Internal Medicine 05/06/21 05/06/21 Roopa Almonte MD [address] [facility] 200 [place] [address] Hospitalist Endocrinology, Diabetes, and Metabolism 05/30/21 Griffin Joshi MD 6[address] [facility] [address] [place] [address] Cardiovascular Disease 07/25/21 Rina Magallon, RN Lead Senior Security Architect 07/29/21 07/11/22 Griffin Joshi MD [address] [place] [address] Assigned Heart and Vascular Provider 08/06/21 10/07/21 Roopa Almonte MD [address] [facility] 200 [place], [place] [address] Assigned Endocrinology Provider 09/10/21 [place] [address] [facility] [place] [place] [address]19 Assigned Musculoskeletal Provider 09/17/21 10/14/21 Lydia Bernstein PA-C [address] [place] [address]65 Assigned PCP 10/01/21 10/21/21 Rosa Maria Love Cristina Community Health Worker 10/06/21 07/11/22 [place] [address] [place] [address] Assigned Musculoskeletal Provider 10/15/21 04/26/23 Paula Reza MD [address] [facility] 200 [place] [address] Assigned PCP 10/22/21 12/23/21 Keerthi Miner APRN CHILD DAY CARE TEACHER [address] [place] [address] Assigned Heart and Vascular Provider 10/08/21 02/10/22 Shahida Sutton APRN CHILD DAY CARE TEACHER Assigned PCP 12/24/21 03/24/22 Porsha Michaels APRN CHILD DAY CARE TEACHER [address] [place] [address] Assigned Heart and Vascular Provider 02/11/22 05/12/22 Paula Reza MD [address] [place] [address] Assigned PCP 03/25/22 04/07/22 Shahida Sutton APRN CHILD DAY CARE TEACHER [address] [place] [address] Assigned PCP 04/08/22 06/30/22 Daylin Ludwig, EP [facility] [address] [place] [address] Cardiac Rehabilitation Therapist 05/16/23 Laurel Velasquez MD [address] [address] Assigned Heart and Vascular Provider 05/13/22 06/30/22 Daylin Ludwig, EP [facility] [address] [address] Cardiac Rehabilitation Therapist 06/08/22 06/09/23 Paula Reza MD [address] [place], [place] [address] Assigned PCP 07/01/22 07/07/22 Porsha Michaels APRN CHILD DAY CARE TEACHER [address] [place] [address] Assigned Heart and Vascular Provider 07/01/22 07/07/22 Laurel Velasquez MD [address] [place] [address] Assigned Heart and Vascular Provider 07/08/22 08/04/22 Shahida Sutton APRN CHILD DAY CARE TEACHER Assigned PCP 07/08/22 09/08/22 Marilin Montaño, CHILD DAY CARE TEACHER [address] [place] [address] Assigned Heart and Vascular Provider 08/05/22 Esha Dewitt MD [address] [address] Gastroenterology 09/06/22 Heather Mosquera MD [address] [place] [address] Internal Medicine 09/06/22 Paula Reza MD [address] [facility] 200 [place], [place] [address] Assigned PCP 09/09/22 01/05/23 Esha Dewitt MD 420 [facility] 36 [place] [address] Assigned Gastroenterology Provider 09/23/22 Valdo Escamilla PA-C [address] [facility] [address] [place] [address] Assigned Neuroscience Provider 09/30/22 Nohelia Abarca PA-C [address] [place] [address] Physician Substation Design Draftsperson Gastroenterology 10/03/22 Heather Mosquera MD [address] [place] [address]155 Assigned PCP 01/06/23 Fawad York MD [address] [place], [place] [address] Assigned Musculoskeletal Provider 04/27/23 06/25/23 documented as of this encounter
--- OUTSIDE RECORDS SUMMARY | 2023-10-02 15:48 | XMS_ITS | Encounter Summary ---
Author Organization [place] Address [address] [place] [address] Care Team Providers Care Retail Stocker Name Role Phone Shahida Sutton APRN FARMWORKER FIELD CROP Primary Care Provi ford Unavailable Shahida Sutton APRN FARMWORKER FIELD CROP Unavailable Un available Carolynn Ramon RN Unavailable Augustine Callaway MD Unavailable Brady Lion MD Unavailable Un available Nima France-C Unavailable Camille Chandler PA-C Unavailable [phone] Anabela Barakat APRN FARMWORKER FIELD CROP Unavailable Nima France PA-C Unavailable Basilio Morillo DO Unavailable Fawad York MD Unavailable Roopa Almonte MD Unavailable Augustine Callaway MD Unavailable Maryse Burton PA-C Unavailable Marquita Starkey MD Unavailable [phone] Roopa Almonte MD Unavailable Griffin Joshi MD Unavailable Rina Magallon RN Unavailable [phone] Paula Reza MD Primary Care Provider [phone] Griffin Joshi MD Unavailable Roopa Almonte MD Unavailable [phone] Basilio Morillo DO Unavailable Lydia Bernstein-C Unavailable Rosa Maria Love Unavailable [phone] Augustine Callaway MD Unavailable Paula Reza MD Unavailable Keerthi Miner APRN FARMWORKER FIELD CROP Unavailable [phone] Herman, Shahida Cummings APRN FARMWORKER FIELD CROP Unavailable Un available Porsha Michaels APRN FARMWORKER FIELD CROP Unavailable [phone] Paula Reza MD Unavailable Shahida Sutton APRN FARMWORKER FIELD CROP Unavailable Un available Daylin Ludwig Unavailable [phone] Laurel Velasquez MD Unavailable [phone] Daylin Ludwig Unavailable [phone] Paula Reza MD Unavailable Porsha Michaels APRN FARMWORKER FIELD CROP Unavailable [phone] Laurel Velasquez MD Unavailable [phone] Shahida Sutton FIRER ELECTRIC LOCOMOTIVE FARMWORKER FIELD CROP Unavailable Un available Marilin Montaño FARMWORKER FIELD CROP Unavailable [phone] Esha Dewitt MD Unavailable [phone] EvelineHeather MD Unavailable [phone] Paula Reza MD Unavailable Esha Dewitt MD Unavailable [phone] Andi Valdo Desouza PA-C Unavailable Nohelia Abarca PA-C Unavailable [phone] Heather Mosquera MD Unavailable Fawad York MD Unavailable Encounter Details Date Type Department Care Team (Late st Contact Info) Description 06/27/[address] [phone] Shahida Sutton APRN FARMWORKER FIELD CROP Social History Tobacco Use Types Packs/Day Years [...] Out COVID-19 02/15/2020 02/15/2020 02/16/2020 2:32 PM BLOCK PLACER Rule Out COVID-19 01/05/2021 01/05/2021 01/06/2021 12:57 PM CDT ESBL 01/05/2021 01/05/2021 Rule Out COVID-19 06/30/2021 06/30/2021 07/01/2021 9:34 AM CDT Rule Out COVID-19 07/25/2021 07/25/2021 07/25/2021 8:02 PM CDT Assessment Noted Time PHQ-9 Depression Total Score: 6 12/21/19 18 7:06 AM CDT documented as of this encounter Care Teams Retail Stocker Relationship Specialty Start Date End Date Shahida Sutton APRN FARMWORKER FIELD CROP PCP - General Nurse Practitioner 08/17/14 08/04/21 Paula Reza MD [address] [facility] 200 [place] [address] PCP - General Internal Medicine 08/05/21 Shahida Sutton APRN FARMWORKER FIELD CROP Assigned PCP 07/12/14 09/30/21 Carolynn Ramon, KASIE Personal Advocate & Liaison (PAL) 12/17/18 08/07/21 [place] [address] [place] [address] Assigned Musculoskeletal Provider 12/26/19 08/21/20 Brady Lion MD Assigned Heart and Vascular Provider 12/26/19 08/14/20 Nima France PA-C 6545 [facility] [address] [place] [address] Assigned Surgical Provider 05/19/20 08/21/20 Camille Chandler PA-C 6545 [facility] [address] [place] [address] Assigned Neuroscience Provider 05/19/20 09/14/20 Anabela Barakat APRN FARMWORKER FIELD CROP 1700 [place] [address] Assigned Heart and Vascular Provider 08/15/20 08/05/21 Nima France PA-C 6545 [facility] [address] [place] [address] Assigned Musculoskeletal Provider 08/22/20 11/13/20 [place] [address] [facility] [place] [place] [address] Assigned Musculoskeletal Provider 11/14/20 12/04/20 Fawad York MD [address] [place], [place] [address] Assigned Musculoskeletal Provider 12/05/20 02/05/21 Roopa Almonte MD [address] [facility] 200 [place] [address] Endocrinology, Diabetes, and Metabolism 01/19/21 [place] [address] [facility] 300 [place] [address] Assigned Musculoskeletal Provider 02/06/21 09/16/21 Maryse Burton, PA-C 5200 [place] [address] Physician Conveyor Line Bakery Worker Dermatology 04/14/21 Marquita Starkey MD [address] [facility] 200 [place] [address] Internal Medicine 05/06/21 05/06/21 Roopa Almonte MD [address] [facility] 200 [place] [address] Hospitalist Endocrinology, Diabetes, and Metabolism 05/30/21 Griffin Joshi MD [address] [facility] [address] [place] [address] Cardiovascular Disease 07/25/21 Rina Magallon, RN Lead Color Straining Bag Washer 07/29/21 07/11/22 Griffin Joshi MD [address] [place] [address] Assigned Heart and Vascular Provider 08/06/21 10/07/21 Roopa Almonet MD [address] [facility] 200 [place], [place] [address] Assigned Endocrinology Provider 09/10/21 [place] [address] [facility] [place] [address] Assigned Musculoskeletal Provider 09/17/21 10/14/21 Lydia Bernstein PA-C [address] [place] [address] Assigned PCP 10/01/21 10/21/21 Rosa Maria Love CHW Community Health Worker 10/06/21 07/11/22 [place] [address] [facility] [address] [place] [address] Assigned Musculoskeletal Provider 10/15/21 04/26/23 Paula Reza MD [address] [facility] 200 [place] [address] Assigned PCP 10/22/21 12/23/21 Keerthi Miner APRN FARMWORKER FIELD CROP [address] [place] [address] Assigned Heart and Vascular Provider 10/08/21 02/10/22 Shahida Sutton APRN FARMWORKER FIELD CROP Assigned PCP 12/24/21 03/24/22 Porsha Michaels APRN FARMWORKER FIELD CROP [address] [place] [address] Assigned Heart and Vascular Provider 02/11/22 05/12/22 Paula Reza MD [address] [place] [address] Assigned PCP 03/25/22 04/07/22 Shahida Sutton APRN FARMWORKER FIELD CROP [address] [place] [address] Assigned PCP 04/08/22 06/30/22 Daylin Ludwig, EP [facility] [address] [place] [address] Cardiac Rehabilitation Therapist 05/16/23 Laurel Velasquez MD [address] [place] [address] Assigned Heart and Vascular Provider 05/13/22 06/30/22 Daylin Ludwig, EP [facility] [address] [place] [address] Cardiac Rehabilitation Therapist 06/08/22 06/09/23 Paula Reza MD [address] [place] [address] Assigned PCP 07/01/22 07/07/22 Porsha Michaels APRN FARMWORKER FIELD CROP [address] [place] [address] Assigned Heart and Vascular Provider 07/01/22 07/07/22 Laurel Velasquez MD [address] [place] [address] Assigned Heart and Vascular Provider 07/08/22 08/04/22 Shahida Sutton APRN FARMWORKER FIELD CROP Assigned PCP 07/08/22 09/08/22 Marilin Montaño, FARMWORKER FIELD CROP [address] [place] [address] Assigned Heart and Vascular Provider 08/05/22 Esha Dewitt MD [address] [place] [address] Gastroenterology 09/06/22 Heather Mosquera MD [address] [facility] 150 [place] [address] Internal Medicine 09/06/22 Paula Reza MD [address] [place], [place] [address] Assigned PCP 09/09/22 01/05/23 Esha Dewitt MD [address] [address] Assigned Gastroenterology Provider 09/23/22 Valdo Escamilla PA-C [address] [facility] [address] [address] [place] [address] Assigned Neuroscience Provider 09/30/22 Nohelia Abarca PA-C 2450 [place], [place] [address] Physician Conveyor Line Bakery Worker Gastroenterology 10/03/22 Heather Mosquera MD [address] [place] [address] Assigned PCP 01/06/23 Fawad York MD 9[address] [place], [place] [address] Assigned Musculoskeletal Provider 04/27/23 06/25/23 documented as of this encounter
--- OUTSIDE RECORDS SUMMARY | 2023-10-02 15:48 | XMS_ITS | Encounter Summary ---
Author Organization [facility] Address [address] [place] [address] Care Team Providers Care Sap Security Consultant Name Role Phone HermanShahida huerta APRN CLINICAL OPERATIONS LEADER Primary Care Provi ford Unavailable Herman, Shahida Cummings APRN CLINICAL OPERATIONS LEADER Unavailable Un available Herman, Shahida Cummings APRN CLINICAL OPERATIONS LEADER Unavailable Un available Carolynn Ramon RN Unavailable [phone] Augustine Callaway MD Unavailable Brady Lion MD Unavailable Un available Nima France-C Unavailable [phone] Camille Chandler PA-C Unavailable [phone] Anabela Barakat APRN CLINICAL OPERATIONS LEADER Unavailable Nima France PA-C Unavailable Basilio Morillo DO Unavailable [phone] Fawad York MD Unavailable [phone] Roopa Almonte MD Unavailable [phone] Augustine Callaway MD Unavailable Maryse Burton PA-C Unavailable Marquita Starkey MD Unavailable Roopa Almonte MD Unavailable [phone] Griffin Joshi MD Unavailable Rina Magallon RN Unavailable [phone] Paula Reza MD Primary Care Provider [phone] Griffin Joshi MD Unavailable Roopa Almonte MD Unavailable [phone] [facility] Basilio Naik Unavailable Lydia Bernstein PA-C Unavailable Rosa Maria Love Unavailable [phone] Augustine Callaway MD Unavailable Paula Reza MD Unavailable Keerthi Miner APRN CLINICAL OPERATIONS LEADER Unavailable [phone] Herman, Shahida Cummings APRN CLINICAL OPERATIONS LEADER Unavailable Un available Porsha Michaels APRN CLINICAL OPERATIONS LEADER Unavailable [phone] Paula Reza MD Unavailable Herman, Shahida Cummings APRN CLINICAL OPERATIONS LEADER Unavailable Un available Daylin Ludwig Unavailable [phone] Laurel Velasquez MD Unavailable [phone] Daylin Ludwig Unavailable [phone] Paula Reza MD Unavailable Porsha Michaels APRN CLINICAL OPERATIONS LEADER Unavailable [phone] Laurel Velasquez MD Unavailable [phone] Herman, Shahida Cummings APRN CLINICAL OPERATIONS LEADER Unavailable Un available Marilin Montaño CLINICAL OPERATIONS LEADER Unavailable [phone] Esha Dewitt MD Unavailable [phone] Heather Mosquera MD Unavailable [phone] Paula Reza MD Unavailable Esha Dewitt MD Unavailable [phone] Valdo Escamilla PA-C Unavailable Nohelia Abarca PA-C Unavailable [phone] Heather Mosquera MD Unavailable Fawad York MD Unavailable Reason for Visit * Reason Onset Date Comments Refill Request 04/17/2018 zolpidem Encounter Details Date Type Department Care Team (Late st Contact Info) Description 04/17/2018 MyC Refill [address] [address] Shahida Sutton APRN CNP Refill [...] Return Visit with Jing Roper APRN CNP [facility] [id number] [place] [address]. [facility] [id number] Requested Prescriptions Pending Prescriptions Disp Refills ??? zolpidem (AMBIEN) 10 MG tablet 30 tablet 3 Sig: Take 1 tablet (10 mg) by mouth nightly as needed for sleep There is no refill protocol information for this order Paula Calderon RN, BSN Message handled by Nurse Triage. UNTS RECEIVABLE EXECUTIVE documented in this encounter Plan of Treatment Not on file documented as of this encounter Visit Diagnoses Diagnosis Other insomnia documented in this encounter Additional Health Concerns Infection Onset Date Last Indicated Resolved Time Rule Out COVID-19 02/15/2020 02/15/2020 02/16/2020 2:32 PM ACCOUNTS RECEIVABLE EXECUTIVE Rule Out COVID-19 01/05/2021 01/05/2021 01/06/2021 12:57 PM CDT ESBL 01/05/2021 01/05/2021 Rule Out COVID-19 06/30/2021 06/30/2021 07/01/2021 9:34 AM CDT Rule Out COVID-19 07/25/2021 07/25/2021 07/25/2021 8:02 PM CDT Assessment Noted Time PHQ-9 Depression Total Score: 6 12/21/19 18 7:06 AM CDT documented as of this encounter Care Teams Sap Security Consultant Relationship Specialty Start Date End Date Shahida Sutton APRN CLINICAL OPERATIONS LEADER PCP - General Nurse Practitioner 08/17/14 08/04/21 Shahida Sutton APRN CLINICAL OPERATIONS LEADER PCP - Assigned PCP 07/12/14 05/07/18 Paula Reza MD [address] [place] [address] PCP - General Internal Medicine 08/05/21 Shahida Sutton APRN CLINICAL OPERATIONS LEADER Assigned PCP 07/12/14 09/30/21 Carolynn Ramon RN Personal Advocate & Liaison (PAL) 12/17/18 08/07/21 [place] [address] [place] [address] Assigned Musculoskeletal Provider 12/26/19 08/21/20 Brady Lion MD Assigned Heart and Vascular Provider 12/26/19 08/14/20 Nima France PA-C [address] [facility] [address] [place] [address] Assigned Surgical Provider 05/19/20 08/21/20 Camille Chandler PA-C 6545 [facility] [address] [place] [address] Assigned Neuroscience Provider 05/19/20 09/14/20 Anabela Barakat APRN CNP [address] [place] [address] Assigned Heart and Vascular Provider 08/15/20 08/05/21 Nima France PA-C 6545 [facility] [address] [place] [address] Assigned Musculoskeletal Provider 08/22/20 11/13/20 [place] [address] [facility] [place] [address] Assigned Musculoskeletal Provider 11/14/20 12/04/20 Fawad York MD [address] [place] [address] Assigned Musculoskeletal Provider 12/05/20 02/05/21 Roopa Almonte MD [address] [facility] [address] [place] [address] Endocrinology, Diabetes, and Metabolism 01/19/21 [place] [address] [facility] [address] [place] [address] Assigned Musculoskeletal Provider 02/06/21 09/16/21 Maryse Burton PA-C [address] [place] [address] Physician X Ray Equipment Mechanic Dermatology 04/14/21 Marquita Starkey MD [address] [facility] [address] [place] [address] Internal Medicine 05/06/21 05/06/21 Roopa Almonte MD [address] [facility] 200 [place] [address] Hospitalist Endocrinology, Diabetes, and Metabolism 05/30/21 Griffin Joshi MD [address] [facility] [address] [place] [address] Cardiovascular Disease 07/25/21 Rina Magallon, RN Lead Director Child Development Center 07/29/21 07/11/22 Griffin Joshi MD [address] [facility] [address] [place] [address] Assigned Heart and Vascular Provider 08/06/21 10/07/21 Roopa Almonte MD [address] [facility] 200 [place], [place] [address] Assigned Endocrinology Provider 09/10/21 [place] [address] [facility] [place] [address] Assigned Musculoskeletal Provider 09/17/21 10/14/21 Lydia Bernstein PA-C [address] [place] [address] Assigned PCP 10/01/21 10/21/21 Rosa Maria Love CHW Community Health Worker 10/06/21 07/11/22 [place] [address] [place] [address] Assigned Musculoskeletal Provider 10/15/21 04/26/23 Paula Reza MD [address] [place] [address] Assigned PCP 10/22/21 12/23/21 Keerthi Miner APRN CLINICAL OPERATIONS LEADER [address] [place] [address] Assigned Heart and Vascular Provider 10/08/21 02/10/22 Shahida Sutton APRN CLINICAL OPERATIONS LEADER Assigned PCP 12/24/21 03/24/22 Porsha Michaels APRN CLINICAL OPERATIONS LEADER [address] [place] [address] Assigned Heart and Vascular Provider 02/11/22 05/12/22 Paula Reza MD [address] [place] [address] Assigned PCP 03/25/22 04/07/22 Shahida Sutton APRN CLINICAL OPERATIONS LEADER [address] [place] [address] Assigned PCP 04/08/22 06/30/22 Daylin Ludwig, EP [facility] [address] [place] [address] Cardiac Rehabilitation Therapist 05/16/23 Laurel Velasquez MD [address] [place] [address] Assigned Heart and Vascular Provider 05/13/22 06/30/22 Daylin Ludwig, EP [facility] [address] [place] [address] Cardiac Rehabilitation Therapist 06/08/22 06/09/23 Paula Reza MD [address] [place] [address] Assigned PCP 07/01/22 07/07/22 Porsha Michaels APRN CLINICAL OPERATIONS LEADER [address] [place] [address] Assigned Heart and Vascular Provider 07/01/22 07/07/22 Laurel Velasquez MD [address] [place] [address] Assigned Heart and Vascular Provider 07/08/22 08/04/22 Shahida Sutton APRN CLINICAL OPERATIONS LEADER Assigned PCP 07/08/22 09/08/22 Marilin Montaño, PAULA [address] [place] [address] Assigned Heart and Vascular Provider 08/05/22 Esha Dewitt MD [address] [facility] 36 [place] [address] MD Gastroenterology 09/06/22 Heather Mosquera MD [address] [place] [address] Internal Medicine 09/06/22 Paula Reza MD [address] [facility] 200 [place] [address] Assigned PCP 09/09/22 01/05/23 Esha Dewitt MD [address] [facility] 36 [place] [address] Assigned Gastroenterology Provider 09/23/22 Valdo Escamilla PA-C [address] [facility] [address] [address] [place] [id number] Assigned Neuroscience Provider 09/30/22 Nohelia Abarca PA-C [address] [facility] [place] [place] [address] Physician X Ray Equipment Mechanic Gastroenterology 10/03/22 Heather Mosquera MD [address] [place] [address] Assigned PCP 01/06/23 Fawad York MD [address] [place] [address] Assigned Musculoskeletal Provider 04/27/23 06/25/23 documented as of this encounter
--- OUTSIDE RECORDS SUMMARY | 2023-10-02 15:48 | XMS_ITS | Encounter Summary ---
Author Organization [facility] Address [address] [place] [address] Care Team Providers Care Director Of Events Name Role Phone Shahida Sutton APRN EMBROIDERY WORKER Primary Care Provi ford Unavailable Shahida Sutton APRN EMBROIDERY WORKER Unavailable Un available Carolynn Ramon RN Unavailable Augustine Callaway MD Unavailable Brady Lion MD Unavailable Un available Nima France-C Unavailable Camille Chandler PA-C Unavailable [phone] Anabela Barakat APRN EMBROIDERY WORKER Unavailable Nima France PA-C Unavailable Basilio Morillo DO Unavailable [phone] Fawad York MD Unavailable Roopa Almonte MD Unavailable Augustine Callaway MD Unavailable Maryse Burton PA-C Unavailable [phone] Marquita Starkey MD Unavailable Roopa Almonte MD Unavailable Griffin Joshi MD Unavailable Rina Magallon RN Unavailable [phone] Paula Reza MD Primary Care Provider [phone] Griffin Joshi MD Unavailable Roopa Almonte MD Unavailable [phone] Basilio Morillo DO Unavailable Lydia Bernstein-C Unavailable Rosa Maria Love Unavailable [phone] Augustine Callaway MD Unavailable Paula Reza MD Unavailable Keerthi Miner APRN EMBROIDERY WORKER Unavailable [phone] Herman, Shahida Cummings APRN EMBROIDERY WORKER Unavailable Un available Porsha Michaels APRN EMBROIDERY WORKER Unavailable [phone] Paula Reza MD Unavailable Shahida Sutton APRN EMBROIDERY WORKER Unavailable Un available Daylin Ludwig Unavailable [phone] Laurel Velasquez MD Unavailable [phone] Daylin Ludwig Unavailable [phone] Paula Reza MD Unavailable Porsha Michaels APRN EMBROIDERY WORKER Unavailable [phone] Laurel Velasquez MD Unavailable [phone] Shahida Sutton FRUIT HARVESTER EMBROIDERY WORKER Unavailable Un available Marilin Montaño EMBROIDERY WORKER Unavailable [phone] Esha Dewitt MD Unavailable EvelineHeather MD Unavailable [phone] Paula Reza MD Unavailable Esha Dewitt MD Unavailable [phone] Valdo Escamilla PA-C Unavailable [phone] Nohelia Abarca PA-C Unavailable [phone] Heather Mosquera MD Unavailable [phone] Fawad York MD Unavailable [phone] Encounter Details Date Type Department Care Team (Late st Contact Info) Description 05/06/2019 [facility] Medical Advice [address] [address] Carolynn Ramon RN Social History [...] Out COVID-19 02/15/2020 02/15/2020 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/2020 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 Rule Out COVID-19 01/05/2021 01/05/2021 01/06/2021 12:57 PM CDT ESBL 01/05/2021 01/05/2021 Rule Out COVID-19 06/30/2021 06/30/2021 07/01/2021 9:34 AM CDT Rule Out COVID-19 07/25/2021 07/25/2021 07/25/2021 8:02 PM CDT Assessment Noted Time PHQ-9 Depression Total Score: 6 12/21/19 18 7:06 AM CDT documented as of this encounter Care Teams Director Of Events Relationship Specialty Start Date End Date Shahida Sutton APRN EMBROIDERY WORKER PCP - General Nurse Practitioner 08/17/14 08/04/21 Paula Reza MD [address] [facility] 200 [place] [address] PCP - General Internal Medicine 08/05/21 Shahida Sutton APRN EMBROIDERY WORKER Assigned PCP 07/12/14 09/30/21 Carolynn Ramon, KASIE Personal Advocate & Liaison (PAL) 12/17/18 08/07/21 [place] [address] [facility] 300 [place] [address] Assigned Musculoskeletal Provider 12/26/19 08/21/20 Brady Lion MD Assigned Heart and Vascular Provider 12/26/19 08/14/20 Nima France PA-C 6545 [facility] 450 [place] [address] Assigned Surgical Provider 05/19/20 08/21/20 Camille Chandler PA-C [address] [facility] [address] [place] [address] Assigned Neuroscience Provider 05/19/20 09/14/20 Anabela Barakat APRN EMBROIDERY WORKER [address]00 [place] [address] Assigned Heart and Vascular Provider 08/15/20 08/05/21 Nima France PA-C [address] [place] [address] Assigned Musculoskeletal Provider 08/22/20 11/13/20 [place] [address] [facility] [place] [address] Assigned Musculoskeletal Provider 11/14/20 12/04/20 Fawad York MD [address] [place], [place] [address] Assigned Musculoskeletal Provider 12/05/20 02/05/21 Roopa Almonte MD [address] [facility] [address] [place] [address] Endocrinology, Diabetes, and Metabolism 01/19/21 [place] [address] [facility] [address] [place] [address] Assigned Musculoskeletal Provider 02/06/21 09/16/21 Maryse Burton PA-C [address] [place] [address] Physician Dish Cloth Inspector Dermatology 04/14/21 Marquita Starkey MD [address] [place] [address] Internal Medicine 05/06/21 05/06/21 Roopa Almonte MD [address] [place] [address] Hospitalist Endocrinology, Diabetes, and Metabolism 05/30/21 Griffin Joshi MD [address] [facility] [address] [place] [address] Cardiovascular Disease 07/25/21 Rina Magallon, RN Lead Vessel Crew Member 07/29/21 07/11/22 Griffin Joshi MD [address] [facility] [address] [place] [address] Assigned Heart and Vascular Provider 08/06/21 10/07/21 Roopa Almonte MD [address] [place] [address] 200 [place], [place] [address] Assigned Endocrinology Provider 09/10/21 [place] [address] [place] [address] Assigned Musculoskeletal Provider 09/17/21 10/14/21 Lydia Bernstein PA-C [address] [facility] 150 [place] [address] Assigned PCP 10/01/21 10/21/21 Rosa Maria Love CHW Community Health Worker 10/06/21 07/11/22 [place] [address] [facility] 300 [place] [address] Assigned Musculoskeletal Provider 10/15/21 04/26/23 Paula Reza MD [address] [facility] 200 [place] [address] Assigned PCP 10/22/21 12/23/21 Keerthi Miner APRN EMBROIDERY WORKER [address] [place] [address] Assigned Heart and Vascular Provider 10/08/21 02/10/22 Shahida Sutton APRN EMBROIDERY WORKER Assigned PCP 12/24/21 03/24/22 Porsha Michaels FRUIT HARVESTER EMBROIDERY WORKER [address] [place] [address] Assigned Heart and Vascular Provider 02/11/22 05/12/22 Paula Reza MD [address] [facility] 200 [place] [address] Assigned PCP 03/25/22 04/07/22 Shahida Sutton APRN EMBROIDERY WORKER [address] [place] [address] Assigned PCP 04/08/22 06/30/22 Daylin Ludwig EP [facility] [address] [place] [address] Cardiac Rehabilitation Therapist 05/16/23 Laurel Velasquez MD [address] [place] [address] Assigned Heart and Vascular Provider 05/13/22 06/30/22 Daylin Ludwig EP [facility] [address] [place] [address] Cardiac Rehabilitation Therapist 06/08/22 06/09/23 Paula Reza MD [address] [place], [place] [address] Assigned PCP 07/01/22 07/07/22 Porsha Michaels APRN EMBROIDERY WORKER [address] [place] [address] Assigned Heart and Vascular Provider 07/01/22 07/07/22 Laurel Velasquez MD [address] [place], [place] [address] Assigned Heart and Vascular Provider 07/08/22 08/04/22 Shahida Sutton APRN EMBROIDERY WORKER Assigned PCP 07/08/22 09/08/22 Marilin Montaño, EMBROIDERY WORKER [address] [place] [address] Assigned Heart and Vascular Provider 08/05/22 Esha Dewitt MD [address] [place] [address] Gastroenterology 09/06/22 Heather Mosquera MD [address] [place] [address] Internal Medicine 09/06/22 Paula Reza MD [address] [place], [place] [address] Assigned PCP 09/09/22 01/05/23 Esha Dewitt MD [address] [place] [address] Assigned Gastroenterology Provider 09/23/22 Valdo Escamilla PA-C [address] [facility] 103 [place] [address] Assigned Neuroscience Provider 09/30/22 Nohelia Abarca PA-C [address] [place], [place] [address] Physician Dish Cloth Inspector Gastroenterology 10/03/22 Heather Mosquera MD 6545 [facility] 150 [place] [address] Assigned PCP 01/06/23 Fawad York MD [address] [place], [place] [address] Assigned Musculoskeletal Provider 04/27/23 06/25/23 documented as of this encounter
--- OUTSIDE RECORDS SUMMARY | 2023-10-02 15:48 | XMS_ITS | Encounter Summary ---
Author Organization [facility] Address [address] [place] [address] Care Team Providers Care Batch Blender Name Role Phone Shahida Sutton APRN MANAGER USER INTERFACE Primary Care Provi ford Unavailable Shahida Sutton APRN MANAGER USER INTERFACE Unavailable Un available Carolynn Ramon RN Unavailable [phone] Augustine Callaway MD Unavailable Brady Lion MD Unavailable Un available Nima France-C Unavailable Camille Chandler PA-C Unavailable [phone] Anabela Barakat APRN MANAGER USER INTERFACE Unavailable Nima France PA-C Unavailable Basilio Morillo DO Unavailable [phone] Fawad York MD Unavailable Roopa Almonte MD Unavailable Augustine Callaway MD Unavailable Maryse Burton PA-C Unavailable Marquita Starkey MD Unavailable Roopa Almonte MD Unavailable Griffin Joshi MD Unavailable Rina Magallon RN Unavailable [phone] Paula Reza MD Primary Care Provider [phone] Griffin Joshi MD Unavailable Roopa Almonte MD Unavailable [phone] Basilio Morillo DO Unavailable Lydia Bernstein-C Unavailable Rosa Maria Love Unavailable [phone] Augustine Callaway MD Unavailable Paula Reza MD Unavailable Keerthi Miner APRN MANAGER USER INTERFACE Unavailable [phone] Herman, Shahida Cummings APRN MANAGER USER INTERFACE Unavailable Un available Porsha Michaels APRN MANAGER USER INTERFACE Unavailable [phone] Paula Reza MD Unavailable Shahida Sutton APRN MANAGER USER INTERFACE Unavailable Un available Daylin Ludwig Unavailable [phone] Laurel Velasquez MD Unavailable [phone] Daylin Ludwig Unavailable [phone] Paula Reza MD Unavailable Porsha Michaels APRN MANAGER USER INTERFACE Unavailable [phone] Laurel Velasquez MD Unavailable [phone] Shahida Sutton FINAL APPLICATION REVIEWER MANAGER USER INTERFACE Unavailable Un available Marilin Montaño MANAGER USER INTERFACE Unavailable [phone] Esha Dewitt MD Unavailable [phone] EvelineHeather MD Unavailable [phone] Paula Reza MD Unavailable Esha Dewitt MD Unavailable [phone] Valdo Escamilla PA-C Unavailable Nohelia Abarca PA-C Unavailable [phone] Heather Mosquera MD Unavailable [phone] Fawad York MD Unavailable Encounter Details Date Type Department Care Team (Late st Contact Info) Description 07/16/2019 MyC Medical Advice [address] [address] Angela Marcelo, CHASE Social History [...] Out COVID-19 02/15/2020 02/15/2020 02/16/2020 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 Rule Out COVID-19 01/05/2021 01/05/2021 01/06/2021 12:57 PM CDT ESBL 01/05/2021 01/05/2021 Rule Out COVID-19 06/30/2021 06/30/2021 07/01/2021 9:34 AM CDT Rule Out COVID-19 07/25/2021 07/25/2021 07/25/2021 8:02 PM CDT Assessment Noted Time PHQ-9 Depression Total Score: 6 12/20/ 18 7:06 AM CDT documented as of this encounter Care Teams Batch Blender Relationship Specialty Start Date End Date Shahida Sutton APRN MANAGER USER INTERFACE PCP - General Nurse Practitioner 08/17/14 08/04/21 Paula Reza MD [address] [place] [address] PCP - General Internal Medicine 08/05/21 Shahida Sutton APRN MANAGER USER INTERFACE Assigned PCP 07/12/14 09/30/21 Carolynn Ramon, KASIE Personal Advocate & Liaison (PAL) 12/17/18 08/07/21 [place] [address] [place] [address] Assigned Musculoskeletal Provider 12/26/19 08/21/20 Brady Lion MD Assigned Heart and Vascular Provider 12/26/19 08/14/20 Nima France PA-C [address] [facility] [address] [place] [address] Assigned Surgical Provider 05/19/20 08/21/20 Camille Chandler PA-C [address] [facility] S [facility] [address] [place] [address] Assigned Neuroscience Provider 05/19/20 09/14/20 Anabela Barakat APRN MANAGER USER INTERFACE [address] [place] [address] Assigned Heart and Vascular Provider 08/15/20 08/05/21 Nima France PA-C [address] [place] [address] Assigned Musculoskeletal Provider 08/22/20 11/13/20 [place] [address] [facility] [place] [address] Assigned Musculoskeletal Provider 11/14/20 12/04/20 Fawad York MD [address] [place] [address] Assigned Musculoskeletal Provider 12/05/20 02/05/21 Roopa Almonte MD [address] [facility] [address] [place] [address] Endocrinology, Diabetes, and Metabolism 01/19/21 [place] [address] [facility] [address] [place] [address] Assigned Musculoskeletal Provider 02/06/21 09/16/21 Maryse Burton PA-C [address] [place] [address] Physician Nail Polish Brush Machine Feeder Dermatology 04/14/21 Marquita Starkey MD [address] [facility] [address] [place] [address] Internal Medicine 05/06/21 05/06/21 Roopa Almonte MD [address] [facility] 200 [place] [address] Hospitalist Endocrinology, Diabetes, and Metabolism 05/30/21 Griffin Joshi MD [address] [facility] [address] [place] [address] Cardiovascular Disease 07/25/21 Rina Magallon, RN Lead Machine Sole Leveler 07/29/21 07/11/22 Griffin Joshi MD [address] [place] [address] Assigned Heart and Vascular Provider 08/06/21 10/07/21 Roopa Almonte MD [address] [facility] [address] [place], [place] [address] Assigned Endocrinology Provider 09/10/21 [place] [address] [facility] [place] [address] Assigned Musculoskeletal Provider 09/17/21 10/14/21 Lydia Bernstein PA-C [address] [place] [address] Assigned PCP 10/01/21 10/21/21 Rosa Maria Love CHW Community Health Worker 10/06/21 07/11/22 [place] [address] [address] [place] [address] Assigned Musculoskeletal Provider 10/15/21 04/26/23 Paula Reza MD [address] [facility] [address] [place] [address] Assigned PCP 10/22/21 12/23/21 Keerthi Miner APRN MANAGER USER INTERFACE [address] [place] [address] Assigned Heart and Vascular Provider 10/08/21 02/10/22 Shahida Sutton APRN MANAGER USER INTERFACE Assigned PCP 12/24/21 03/24/22 Porsha Michaels APRN MANAGER USER INTERFACE [address] [place] [address] Assigned Heart and Vascular Provider 02/11/22 05/12/22 Paula Reza MD [address] [place] [address] Assigned PCP 03/25/22 04/07/22 Shahida Sutton APRN MANAGER USER INTERFACE [address] [place] [address] Assigned PCP 04/08/22 06/30/22 Daylin Ludwig, EP [facility] [address] [place] [address] Cardiac Rehabilitation Therapist 05/16/23 Laurel Velasquez MD [address] [place] [address] Assigned Heart and Vascular Provider 05/13/22 06/30/22 Daylin Ludwig, MIKI [facility] [address] [place] [address] Cardiac Rehabilitation Therapist 06/08/22 06/09/23 Paula Reza MD [address] [place] [address] Assigned PCP 07/01/22 07/07/22 Porsha Michaels APRN MANAGER USER INTERFACE [address] [place] [address] Assigned Heart and Vascular Provider 07/01/22 07/07/22 Laurel Velasquez MD [address] [place] [address] Assigned Heart and Vascular Provider 07/08/22 08/04/22 Shahida Sutton APRN MANAGER USER INTERFACE Assigned PCP 07/08/22 09/08/22 Marilin Montaño, MANAGER USER INTERFACE [address] [place] [address] Assigned Heart and Vascular Provider 08/05/22 Esha Dewitt MD [address] 3160[address] Gastroenterology 09/06/22 Heather Mosquera MD [address] [facility] [address] [place] [address] Internal Medicine 09/06/22 Paula Reza MD [address] [place], [place] [address] Assigned PCP 09/09/22 01/05/23 Esha Dewitt MD 420 [facility] 36 [place] [address] Assigned Gastroenterology Provider 09/23/22 Valdo Escamilla PA-C [address] [facility] [address] [place] [address] Assigned Neuroscience Provider 09/30/22 Nohelia Abarca PA-C [address] [facility] [address] Physician Nail Polish Brush Machine Feeder Gastroenterology 10/03/22 Heather Mosquera MD [address] [place] [address] Assigned PCP 01/06/23 Fawad York MD [address] [place], [place] [address] Assigned Musculoskeletal Provider 04/27/23 06/25/23 documented as of this encounter
--- OUTSIDE RECORDS SUMMARY | 2023-10-02 15:48 | XMS_ITS | Encounter Summary ---
Author Organization [facility] Address [address] [place] [address] Care Team Providers Care Associate Dean Of Women Name Role Phone Shahida Sutton APRN CYANIDE CASE HARDENER Primary Care Provi ford Unavailable Shahida Sutton APRN CYANIDE CASE HARDENER Unavailable Un available Carolynn Ramon RN Unavailable [phone] Augustine Callaway MD Unavailable Brady Lion MD Unavailable Un available Nima Frnace-C Unavailable Camille Chandler PA-C Unavailable [phone] Anabela Barakat APRN CYANIDE CASE HARDENER Unavailable Nima France PA-C Unavailable Basilio Morillo DO Unavailable Fawad York MD Unavailable [phone] Roopa Almonte MD Unavailable Augustine Callaway MD Unavailable Maryse Burton PA-C Unavailable [phone] Marquita Starkey MD Unavailable Roopa Almonte MD Unavailable Griffin Joshi MD Unavailable Rina Magallon RN Unavailable [phone] Paula Reza MD Primary Care Provider [phone] Griffin Joshi MD Unavailable Roopa Almonte MD Unavailable [phone] Basilio Morillo DO Unavailable Lydia Bernstein-C Unavailable Rosa Maria Love Unavailable [phone] Augustine Callaway MD Unavailable Paula Reza MD Unavailable Keerthi Miner APRN CYANIDE CASE HARDENER Unavailable [phone] Herman, Shahida Cummings APRN CYANIDE CASE HARDENER Unavailable Un available Porsha Michaels APRN CYANIDE CASE HARDENER Unavailable [phone] Paula Reza MD Unavailable Shahida Sutton APRN CYANIDE CASE HARDENER Unavailable Un available Daylin Ludwig Unavailable [phone] Laurel Velasquez MD Unavailable [phone] Daylin Ludwig Unavailable [phone] Paula Reza MD Unavailable Porsha Michaels APRN CYANIDE CASE HARDENER Unavailable [phone] Laurel Velasquez MD Unavailable [phone] Shahida Sutton PORTRAIT CONSULTANT CYANIDE CASE HARDENER Unavailable Un available Marilin Montaño CYANIDE CASE HARDENER Unavailable [phone] Esha [place] MD Unavailable [phone] EvelineHeather MD Unavailable [phone] Paula Reza MD Unavailable Esha [place] MD Unavailable [phone] Andi Valdo Desouza PA-C Unavailable Nohelia Abarca PA-C Unavailable [phone] Heather Mosuqera MD Unavailable Fawad York MD Unavailable [phone] Reason for Visit * Reason Onset Date Comments Medication Question 06/27/2019 SE of botox neck pain and spasms Encounter Details Date Type Department Care Team (Late st Contact Info) Description 06/27/[address] [address] Shahida Sutton APRN CNP Medication [...] 06/30/2019 8:31 AM CDT Shahida Sutton APRN CYANIDE CASE HARDENER Please see update below Neck spasms - [...] message? 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 Rule Out COVID-19 01/05/2021 01/05/2021 01/06/2021 12:57 PM CDT ESBL 01/05/2021 01/05/2021 Rule Out COVID-19 06/30/2021 06/30/2021 07/01/2021 9:34 AM CDT Rule Out COVID-19 07/25/2021 07/25/2021 07/25/2021 8:02 PM CDT Assessment Noted Time PHQ-9 Depression Total Score: 6 12/21/19 18 7:06 AM CDT documented as of this encounter Care Teams Associate Dean Of Women Relationship Specialty Start Date End Date Shahida Sutton APRN CYANIDE CASE HARDENER PCP - General Nurse Practitioner 08/17/14 08/04/21 Paula Reza MD [address] [address] PCP - General Internal Medicine 08/05/21 Shahida Sutton APRN CYANIDE CASE HARDENER Assigned PCP 07/12/14 09/30/21 Carolynn Ramon, KASIE Personal Advocate & Liaison (PAL) 12/17/18 08/07/21 [place] [address] [place] [address] Assigned Musculoskeletal Provider 12/26/19 08/21/20 Brady Lion MD Assigned Heart and Vascular Provider 12/26/19 08/14/20 Nima France PA-C [address] [place] [address] Assigned Surgical Provider 05/19/20 08/21/20 Camille Chandler PA-C [address] [place] [address] Assigned Neuroscience Provider 05/19/20 09/14/20 Anabela Barakat APRN CYANIDE CASE HARDENER [address] [place] [address] Assigned Heart and Vascular Provider 08/15/20 08/05/21 Nima France PA-C [address] [place] [address] Assigned Musculoskeletal Provider 08/22/20 11/13/20 [place] [address] [address] [place] [address] Assigned Musculoskeletal Provider 11/14/20 12/04/20 Fawad York MD [address] [place], [place] [address] Assigned Musculoskeletal Provider 12/05/20 02/05/21 Roopa Almonte MD [address] [facility] 200 [place] [address] Endocrinology, Diabetes, and Metabolism 01/19/21 [place] [address] [facility] 300 [place] [address] Assigned Musculoskeletal Provider 02/06/21 09/16/21 Maryse Burton PA-C [address] [place] [address] Physician Guest Experience Representative Dermatology 04/14/21 Marquita Starkey MD [address] [facility] 200 [place] [address] Internal Medicine 05/06/21 05/06/21 Roopa Almonte MD [address] [facility] 200 [place] [address] Hospitalist Endocrinology, Diabetes, and Metabolism 05/30/21 Griffin Joshi MD [address] [place] [address] Cardiovascular Disease 07/25/21 Rina Magallon, RN Lead Shipping/Receiving Clerk 07/29/21 07/11/22 Griffin Joshi MD [address] [place] [address] Assigned Heart and Vascular Provider 08/06/21 10/07/21 Roopa Almonte MD [address] [place] [address] [address] [place], [place] [address] Assigned Endocrinology Provider 09/10/21 [place] [address] [facility] [place] [address]67[address] Assigned Musculoskeletal Provider 09/17/21 10/14/21 Lydia Bernstein PA-C [address] [place] [address] Assigned PCP 10/01/21 10/21/21 Rosa Maria Love Cristina Community Health Worker 10/06/21 07/11/22 [place] [address] [facility] 300 [place], [place] [address] Assigned Musculoskeletal Provider 10/15/21 04/26/23 Paula Reza MD [address] [facility] [address] [place], [place] [address] Assigned PCP 10/22/21 12/23/21 Keerthi Miner APRN CYANIDE CASE HARDENER [address] [place] [address] Assigned Heart and Vascular Provider 10/08/21 02/10/22 Shahida Sutton APRN CYANIDE CASE HARDENER Assigned PCP 12/24/21 03/24/22 Porsha Michaels APRN CYANIDE CASE HARDENER [address] [place] [address] Assigned Heart and Vascular Provider 02/11/22 05/12/22 Paula Reza MD [address] [place] [address] Assigned PCP 03/25/22 04/07/22 Shahida Sutton, PORTRAIT CONSULTANT CYANIDE CASE HARDENER [address] [place] [address] Assigned PCP 04/08/22 06/30/22 Daylin Ludwig EP [facility] [address] [place] [address] Cardiac Rehabilitation Therapist 05/16/23 Laurel Velasquez MD [address] [place] [address] Assigned Heart and Vascular Provider 05/13/22 06/30/22 Daylin Ludwig EP [facility] [address] [place] [address] Cardiac Rehabilitation Therapist 06/08/22 06/09/23 Paula Reza MD [address] [place] [address] Assigned PCP 07/01/22 07/07/22 Porsha Michaels APRN CYANIDE CASE HARDENER [address] [place] [address] Assigned Heart and Vascular Provider 07/01/22 07/07/22 Laurel Velasquez MD [address] [place] [address] Assigned Heart and Vascular Provider 07/08/22 08/04/22 Shahida Sutton APRN CYANIDE CASE HARDENER Assigned PCP 07/08/22 09/08/22 Marilin Montaño, CYANIDE CASE HARDENER [address] [place] [address] Assigned Heart and Vascular Provider 08/05/22 Esha Dewitt MD [address] [address] Gastroenterology 09/06/22 Heather Mosquera MD [address] [place] [address] Internal Medicine 09/06/22 Paula Reza MD [address] [facility] 200 [place] [address] Assigned PCP 09/09/22 01/05/23 Esha Dewitt MD 420 [facility] 36 [place] [address] Assigned Gastroenterology Provider 09/23/22 Valdo Escamilla PA-C [address] [facility] [address] [place] [address] Assigned Neuroscience Provider 09/30/22 Nohelia Abarca PA-C [address] [place], [place] [address] Physician Guest Experience Representative Gastroenterology 10/03/22 Heather Mosquera MD [address] [address]36[address] Assigned PCP 01/06/23 Fawad York MD [address] [place], [place] [address] Assigned Musculoskeletal Provider 04/27/23 06/25/23 documented as of this encounter
--- OUTSIDE RECORDS SUMMARY | 2023-10-02 15:48 | XMS_ITS | Encounter Summary ---
Author Organization [place] Address [address] [place] [address] Care Team Providers Care Segregator Name Role Phone Shahida Sutton APRN PIPE FITTER GAS PIPE Primary Care Provi ford Unavailable Shahida Sutton APRN PIPE FITTER GAS PIPE Unavailable Un available Carolynn Ramon RN Unavailable Augustine Callaway MD Unavailable Brady Lion MD Unavailable Un available Nima France-C Unavailable Camille Chandler PA-C Unavailable [phone] Anabela Barakat APRN PIPE FITTER GAS PIPE Unavailable Nima France PA-C Unavailable Basilio Morillo DO Unavailable [phone] Fawad York MD Unavailable [phone] Roopa Almonte MD Unavailable [phone] Augustine Callaway MD Unavailable Maryse Burton PA-C Unavailable Marquita Starkey MD Unavailable Roopa Almonte MD Unavailable Griffin Joshi MD Unavailable Rina Magallon RN Unavailable [phone] Paula Reza MD Primary Care Provider [phone] Griffin Joshi MD Unavailable Roopa Almonte MD Unavailable [phone] Basilio Morillo DO Unavailable Lydia Bernstein-C Unavailable Rosa Maria Love Unavailable [phone] Augustine Callaway MD Unavailable Paula Reza MD Unavailable Keerthi Miner APRN PIPE FITTER GAS PIPE Unavailable [phone] Herman, Shahida Cummings APRN PIPE FITTER GAS PIPE Unavailable Un available Porsha Michaels APRN PIPE FITTER GAS PIPE Unavailable [phone] Paula Reza MD Unavailable Shahida Sutton APRN PIPE FITTER GAS PIPE Unavailable Un available Daylin Ludwig Unavailable [phone] Laurel Velasquez MD Unavailable [phone] Daylin Ludwig Unavailable [phone] Paula Reza MD Unavailable Porsha Michaels APRN PIPE FITTER GAS PIPE Unavailable [phone] Laurel Velasquez MD Unavailable [phone] Shahida Sutton OVERNIGHT BABYSITTER PIPE FITTER GAS PIPE Unavailable Un available Marilin Montaño PIPE FITTER GAS PIPE Unavailable [phone] Esha Dewitt MD Unavailable [phone] EevlineHeather MD Unavailable [phone] Paula Reza MD Unavailable Esha Dewitt MD Unavailable [phone] Andi Valdo Desouza PA-C Unavailable Nohelia Abarca PA-C Unavailable [phone] Heather Mosquera MD Unavailable Fawad York MD Unavailable Reason for Visit * Reason Comments Medication Refill BASAGLAR 100 U/ML KW IKPEN INJ 3ML Encounter Details Date Type Department Care Team (Late st Contact Info) Description 06/27/[address] [address] Shahida Sutotn APRN CNP Medication Refill (BASAGLAR 100 U/ML [...] range: See below. 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 Rule Out COVID-19 01/05/2021 01/05/2021 01/06/2021 12:57 PM CDT ESBL 01/05/2021 01/05/2021 Rule Out COVID-19 06/30/2021 06/30/2021 07/01/2021 9:34 AM CDT Rule Out COVID-19 07/25/2021 07/25/2021 07/25/2021 8:02 PM CDT Assessment Noted Time PHQ-9 Depression Total Score: 6 12/21/19 18 7:06 AM CDT documented as of this encounter Care Teams Segregator Relationship Specialty Start Date End Date Shahida Sutton APRN PIPE FITTER GAS PIPE PCP - General Nurse Practitioner 08/17/14 08/04/21 Paula Reza MD [address] [facility] [address] [place] [address] PCP - General Internal Medicine 08/05/21 Shahida Sutton APRN PIPE FITTER GAS PIPE Assigned PCP 07/12/14 09/30/21 Carolynn Ramon, KASIE Personal Advocate & Liaison (PAL) 12/17/18 08/07/21 [place] [address] [place] [address] Assigned Musculoskeletal Provider 12/26/19 08/21/20 Brady Lion MD Assigned Heart and Vascular Provider 12/26/19 08/14/20 Nima France PA-C [address] [place] [address] Assigned Surgical Provider 05/19/20 08/21/20 Camille Chandler PA-C [address] [facility] [address] [place], [place] [address] Assigned Neuroscience Provider 05/19/20 09/14/20 Anabela Barakat APRN PIPE FITTER GAS PIPE [address] [place] [address] Assigned Heart and Vascular Provider 08/15/20 08/05/21 Nima France PA-C [address] [facility] [address] [place] [address] Assigned Musculoskeletal Provider 08/22/20 11/13/20 [place] [address] [place] [address] Assigned Musculoskeletal Provider 11/14/20 12/04/20 Fawad York MD [address] [place], [place] [address] Assigned Musculoskeletal Provider 12/05/20 02/05/21 Roopa Almonte MD [address] [facility] [address] [place] [address] Endocrinology, Diabetes, and Metabolism 01/19/21 [place] [address] [facility] [address] [place] [address] Assigned Musculoskeletal Provider 02/06/21 09/16/21 Maryse Burton PA-C [address] [place] [address] Physician Vending Machine Coin Collector Dermatology 04/14/21 Marquita Starkey MD [address] [facility] [address] [place] [address] Internal Medicine 05/06/21 05/06/21 Roopa Almonte MD [address] [facility] [address] [place] [address] Hospitalist Endocrinology, Diabetes, and Metabolism 05/30/21 Griffin Joshi MD [address] [place] [address] Cardiovascular Disease 07/25/21 Rina Magallon RN Lead Utility Pipe Layer 07/29/21 07/11/22 Griffin Joshi MD [address] [place] [address] Assigned Heart and Vascular Provider 08/06/21 10/07/21 Roopa Almonte MD [address] [facility] [address] [place], [place] [address] Assigned Endocrinology Provider 09/10/21 [place] [address] [facility] [place] [address] Assigned Musculoskeletal Provider 09/17/21 10/14/21 Lydia Bernstein PA-C [address] [place] [address] Assigned PCP 10/01/21 10/21/21 Klarissa Lovesay, W Community Health Worker 10/06/21 07/11/22 [place] [address] [place] [address] Assigned Musculoskeletal Provider 10/15/21 04/26/23 Paula Reza MD [address] [place] [address] Assigned PCP 10/22/21 12/23/21 Keerthi Miner APRN PIPE FITTER GAS PIPE [address] [place] [address] Assigned Heart and Vascular Provider 10/08/21 02/10/22 Shahida Sutton APRN PIPE FITTER GAS PIPE Assigned PCP 12/24/21 03/24/22 Porsha Michaels APRN PIPE FITTER GAS PIPE [address] [place] [address] Assigned Heart and Vascular Provider 02/11/22 05/12/22 Paula Reza MD [address] [place] [address] Assigned PCP 03/25/22 04/07/22 Shahida Sutton APRN PIPE FITTER GAS PIPE [address] [place] [address] Assigned PCP 04/08/22 06/30/22 Daylin Ludwig EP [facility] [address] [place] [address] Cardiac Rehabilitation Therapist 05/16/23 Laurel Velasquez MD [address] [place] [address] Assigned Heart and Vascular Provider 05/13/22 06/30/22 Daylin Ludwig EP [facility] [address] [place] [id number] Cardiac Rehabilitation Therapist 06/08/22 06/09/23 Paula Reza MD [address] [facility] [address] [place], [place] [address] Assigned PCP 07/01/22 07/07/22 Porsha Michaels APRN PIPE FITTER GAS PIPE [address] [place] [address] Assigned Heart and Vascular Provider 07/01/22 07/07/22 Laurel Velasquez MD [address] [place] [address] Assigned Heart and Vascular Provider 07/08/22 08/04/22 Shahida Sutton, OVERNIGHT BABYSITTER PIPE FITTER GAS PIPE Assigned PCP 07/08/22 09/08/22 Marilin Montaño, PIPE FITTER GAS PIPE [address] [place] [address] Assigned Heart and Vascular Provider 08/05/22 Esha Dewitt MD [address] [place] [address] [address] [place], [place] [address] Gastroenterology 09/06/22 Heather Mosquera MD [address] [place] [address] Internal Medicine 09/06/22 Paula Reza MD [address] [place] [address] Assigned PCP 09/09/22 01/05/23 Esha Dewitt MD [address] [facility] [address] [place], [place] [address] Assigned Gastroenterology Provider 09/23/22 Valdo Escamilla PA-C [address] [facility] [place], [place] [id number] Assigned Neuroscience Provider 09/30/22 Nohelia Abarca PA-C [address] [place], [place] [address] Physician Vending Machine Coin Collector Gastroenterology 10/03/22 Heather Mosquera MD [address] [place] [address] Assigned PCP 01/06/23 Fawad York MD [address] [place], [place] [address] Assigned Musculoskeletal Provider 04/27/23 06/25/23 documented as of this encounter
--- OUTSIDE RECORDS SUMMARY | 2023-10-02 15:48 | XMS_ITS | Encounter Summary ---
Author Organization [place] Address [address] [place] [address] Care Team Providers Care Homebirth Midwife Name Role Phone Shahida Sutton APRN MATCH MAKER Primary Care Provi ford Unavailable Shahida Sutton APRN MATCH MAKER Unavailable Un available Carolynn Ramon RN Unavailable Augustine Callaway MD Unavailable Brady Lion MD Unavailable Un available Nima France-C Unavailable Camille Chandler PA-C Unavailable [phone] Anabela Barakat APRN MATCH MAKER Unavailable Nima France PA-C Unavailable Basilio Morillo DO Unavailable Fawad York MD Unavailable Roopa Almonte MD Unavailable Augustine Callaway MD Unavailable Maryse Burton PA-C Unavailable Marquita Starkey MD Unavailable [phone] Roopa Almonte MD Unavailable Griffin Joshi MD Unavailable Rina Magallon RN Unavailable [phone] Paula Reza MD Primary Care Provider [phone] Griffin Joshi MD Unavailable Roopa Almonte MD Unavailable [phone] Basilio Morillo DO Unavailable Lydia Bernstein-C Unavailable Rosa Maria Love Unavailable [phone] Augustine Callaway MD Unavailable Paula Reza MD Unavailable Keerthi Miner APRN MATCH MAKER Unavailable [phone] Herman, Shahida Cummings APRN MATCH MAKER Unavailable Un available Porsha Michaels APRN MATCH MAKER Unavailable [phone] Paula Reza MD Unavailable Shahida Sutton APRN MATCH MAKER Unavailable Un available Daylin Ludwig Unavailable [phone] Laurel Velasquez MD Unavailable [phone] Daylin Ludwig Unavailable [phone] Paula Reza MD Unavailable Porsha Michaels APRN MATCH MAKER Unavailable [phone] Laurel Velasquez MD Unavailable [phone] Shahida Sutton FAMILY AND CONSUMER EDUCATION TEACHER MATCH MAKER Unavailable Un available Marilin Montaño MATCH MAKER Unavailable [phone] Esha Dewitt MD Unavailable EvelineHeather MD Unavailable [phone] Paula Reza MD Unavailable Esha Dewitt MD Unavailable [phone] Andi Valdo Desouza PA-C Unavailable [phone] Nohelia Abarca PA-C Unavailable [phone] Heather Mosquera MD Unavailable Fawad York MD Unavailable [phone] Encounter Details Date Type Department Care Team (Late st Contact Info) Description 03/11/2019 MyC Medical Advice [facility] [place] [address] [place] [address] [address] [place] [address] Aneta Campbell APRN 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 Rule Out COVID-19 01/05/2021 01/05/2021 01/06/2021 12:57 PM CDT ESBL 01/05/2021 01/05/2021 Rule Out COVID-19 06/30/2021 06/30/2021 07/01/2021 9:34 AM CDT Rule Out COVID-19 07/25/2021 07/25/2021 07/25/2021 8:02 PM CDT Assessment Noted Time PHQ-9 Depression Total Score: 6 12/21/19 18 7:06 AM CDT documented as of this encounter Care Teams Homebirth Midwife Relationship Specialty Start Date End Date Shahida Sutton APRN MATCH MAKER PCP - General Nurse Practitioner 08/17/14 08/04/21 Paula Reza MD [address] [facility] [address] [place] [address] PCP - General Internal Medicine 08/05/21 Shahida Sutton APRN MATCH MAKER Assigned PCP 07/12/14 09/30/21 Carolynn Ramno, KASIE Personal Advocate & Liaison (PAL) 12/17/18 08/07/21 [place] [address] [place] [address] Assigned Musculoskeletal Provider 12/26/19 08/21/20 Brady Lion MD Assigned Heart and Vascular Provider 12/26/19 08/14/20 Nima France PA-C [address] [facility] [address] [place] [address] Assigned Surgical Provider 05/19/20 08/21/20 Camille Chandler PA-C [address] [place] [address] Assigned Neuroscience Provider 05/19/20 09/14/20 Anabela Barakat APRN MATCH MAKER 1700 [place] [address] Assigned Heart and Vascular Provider 08/15/20 08/05/21 Nima France PA-C [address] [facility] [address] [place], [place] [address] Assigned Musculoskeletal Provider 08/22/20 11/13/20 [place] [address] [place], [place] [address] Assigned Musculoskeletal Provider 11/14/20 12/04/20 Fawad York MD [address] [place], [place] [address] Assigned Musculoskeletal Provider 12/05/20 02/05/21 Roopa Almonte MD [address] [facility] 200 [place] [address] Endocrinology, Diabetes, and Metabolism 01/19/21 [place] [address] [facility] 300 [place], [place] [address] Assigned Musculoskeletal Provider 02/06/21 09/16/21 Maryse Burton PA-C [address] [place] [address] Physician Journeyman Mechanic Dermatology 04/14/21 Marquita Starkey MD [address] [facility] [address] [place], [place] [address] Internal Medicine 05/06/21 05/06/21 Roopa Almonte MD [address] [facility] 200 [place] [address] Hospitalist Endocrinology, Diabetes, and Metabolism 05/30/21 Griffin Joshi MD [address] [facility] [address] [place] [address] Cardiovascular Disease 07/25/21 Rina Magallon, RN Lead Sales And Distribution Clerk 07/29/21 07/11/22 Griffin Joshi MD [address] [facility] [facility] [address] [place] [address] Assigned Heart and Vascular Provider 08/06/21 10/07/21 Roopa Almnote MD [address] 200 [place] [address] Assigned Endocrinology Provider 09/10/21 [place] [address] [facility] [place] [address] Assigned Musculoskeletal Provider 09/17/21 10/14/21 Lydia Bernstein PA-C [address] [facility] [facility] [address] [place] [address] Assigned PCP 10/01/21 10/21/21 Rosa Maria Love CHW Community Health Worker 10/06/21 07/11/22 [place] [address] [address] [facility] [address] [place] [address] Assigned Musculoskeletal Provider 10/15/21 04/26/23 Paula Reza MD [address] [facility] [address] [place] [address] Assigned PCP 10/22/21 12/23/21 Keerthi Miner APRN MATCH MAKER [address] [place] [address] Assigned Heart and Vascular Provider 10/08/21 02/10/22 Shahida Sutton APRN MATCH MAKER Assigned PCP 12/24/21 03/24/22 Porsha Michaels APRN MATCH MAKER [address] [place] [address] Assigned Heart and Vascular Provider 02/11/22 05/12/22 Paula Reza MD [address] [facility] [address] [place] [address] Assigned PCP 03/25/22 04/07/22 Shahida Sutton APRN MATCH MAKER [address] [place] [address] Assigned PCP 04/08/22 06/30/22 Daylin Ludwig, EP [facility] [address] [place] [address] Cardiac Rehabilitation Therapist 05/16/23 Laurel Velasquez MD [address] [place] [address] Assigned Heart and Vascular Provider 05/13/22 06/30/22 Daylin Ludwig, [facility] [address] [place] [address] Cardiac Rehabilitation Therapist 06/08/22 06/09/23 Paula Reza MD [address] [place], [place] [address] Assigned PCP 07/01/22 07/07/22 Porsha Michaels APRN MATCH MAKER [address] [place] [address] Assigned Heart and Vascular Provider 07/01/22 07/07/22 Laurel Velasquez MD [address] [place] [address] Assigned Heart and Vascular Provider 07/08/22 08/04/22 Shahida Sutton APRN MATCH MAKER Assigned PCP 07/08/22 09/08/22 Marilin Montaño, MATCH MAKER [address] [place] [address] Assigned Heart and Vascular Provider 08/05/22 Esha Dewitt MD [address] [place] [address] 36 [place], [place] [address] Gastroenterology 09/06/22 Heather Mosquera MD [address] [place] [address] Internal Medicine 09/06/22 Paula Reza MD [address] [place] [address] Assigned PCP 09/09/22 01/05/23 Esha Dewitt MD [address] [facility] 36 [place] [address] Assigned Gastroenterology Provider 09/23/22 Valdo Escamilla PA-C [address] [facility] [address] [place] [address] Assigned Neuroscience Provider 09/30/22 Nohelia Abarca PA-C [address] [place] [address] Physician Journeyman Mechanic Gastroenterology 10/03/22 Heather Mosquera MD [address] [facility] [address] [place] [address] Assigned PCP 01/06/23 Fawad York MD [address] [place] [address] Assigned Musculoskeletal Provider 04/27/23 06/25/23 documented as of this encounter
--- OUTSIDE RECORDS SUMMARY | 2023-10-02 15:48 | XMS_ITS | Encounter Summary ---
Author Organization [facility] Address [address] [place] [address] Care Team Providers Care Intelligence Consultant Name Role Phone Shahida Sutton APRN HYDROELECTRIC MACHINERY MECHANIC Primary Care Provi ford Unavailable Shahida Sutton APRN HYDROELECTRIC MACHINERY MECHANIC Unavailable Un available Carolynn Ramon RN Unavailable [phone] Augustine Callaway MD Unavailable Brady Lion MD Unavailable Un available Nima France-C Unavailable Camille Chandler PA-C Unavailable [phone] Anabela Barakat APRN HYDROELECTRIC MACHINERY MECHANIC Unavailable Nima France PA-C Unavailable Basilio Morillo DO Unavailable Fawad York MD Unavailable Roopa Almonte MD Unavailable Augustine Callaway MD Unavailable Maryse Burton PA-C Unavailable Marquita Starkey MD Unavailable [phone] Roopa Almonte MD Unavailable Griffin Joshi MD Unavailable Rina Magallon RN Unavailable [phone] Paula Reza MD Primary Care Provider [phone] Griffin Joshi MD Unavailable Roopa Almonte MD Unavailable [phone] Basilio Morillo DO Unavailable Lydia Bernstein-C Unavailable Rosa Maria Love Unavailable [phone] Augustine Callaway MD Unavailable Paula Reza MD Unavailable Keerthi Miner APRN HYDROELECTRIC MACHINERY MECHANIC Unavailable [phone] Herman, Shahida Cummings APRN HYDROELECTRIC MACHINERY MECHANIC Unavailable Un available Porsha Michaels APRN HYDROELECTRIC MACHINERY MECHANIC Unavailable [phone] Paula Reza MD Unavailable Shahida Sutton APRN HYDROELECTRIC MACHINERY MECHANIC Unavailable Un available Daylin Ludwig Unavailable [phone] Laurel Velasquez MD Unavailable [phone] Daylin Ludwig Unavailable [phone] Paula Reza MD Unavailable Porsha Michaels APRN HYDROELECTRIC MACHINERY MECHANIC Unavailable [phone] Laurel Velasquez MD Unavailable [phone] Shahida Sutton VEGETABLE II FARMWORKER HYDROELECTRIC MACHINERY MECHANIC Unavailable Un available Marilin Montaño HYDROELECTRIC MACHINERY MECHANIC Unavailable [phone] Esha Dewitt MD Unavailable [phone] EvelineHeather MD Unavailable [phone] Paula Reza MD Unavailable Esha Dewitt MD Unavailable [phone] Andi Valdo Desouza PA-C Unavailable [phone] Nohelia Abarca PA-C Unavailable [phone] Heather Mosquera MD Unavailable [phone] Fawad York MD Unavailable Reason for Visit * Reason Comments Medication Refill Encounter Details Date Type Department Care Team (Late st Contact Info) Description 09/17/[address] [address] Shahida Sutton APRN HYDROELECTRIC MACHINERY MECHANIC Medication Refill Social History Tobacco Use Types [...] 09/17/2018 10:36 AM CDT Prescription approved per [facility] Refill Protocol. Raven Perry RN on 09/17/2018 [...] Out COVID-19 02/15/2020 02/15/2020 02/16/2020 2:32 PM COAGULATING OPERATOR Rule Out COVID-19 01/05/2021 01/05/2021 01/06/2021 12:57 PM CDT ESBL 01/05/2021 01/05/2021 Rule Out COVID-19 06/30/2021 06/30/2021 07/01/2021 9:34 AM CDT Rule Out COVID-19 07/25/2021 07/25/2021 07/25/2021 8:02 PM CDT Assessment Noted Time PHQ-9 Depression Total Score: 6 12/21/19 18 7:06 AM CDT documented as of this encounter Care Teams Intelligence Consultant Relationship Specialty Start Date End Date Shahida Sutton APRN HYDROELECTRIC MACHINERY MECHANIC PCP - General Nurse Practitioner 08/17/14 08/04/21 Paula Reza MD [address] [facility] [address] [place] [address] PCP - General Internal Medicine 08/05/21 Shahida Sutton APRN HYDROELECTRIC MACHINERY MECHANIC Assigned PCP 07/12/14 09/30/21 Carolynn Ramon, KASIE Personal Advocate & Liaison (PAL) 12/17/18 08/07/21 [place] [address] [place] [address] Assigned Musculoskeletal Provider 12/26/19 08/21/20 Brady Lion MD Assigned Heart and Vascular Provider 12/26/19 08/14/20 Nima France PA-C [address] [place] [address] Assigned Surgical Provider 05/19/20 08/21/20 Camille Chandler PA-C [address] [place] [address] Assigned Neuroscience Provider 05/19/20 09/14/20 Anabela Barakat APRN HYDROELECTRIC MACHINERY MECHANIC [address] [place] [address] Assigned Heart and Vascular Provider 08/15/20 08/05/21 Nima France PA-C [address] [facility] [address] [place] [address] Assigned Musculoskeletal Provider 08/22/20 11/13/20 [place] [address] [employer] [facility] [place] [address] Assigned Musculoskeletal Provider 11/14/20 12/04/20 Fawad York MD [address] [place], [place] [address] Assigned Musculoskeletal Provider 12/05/20 02/05/21 Roopa Almonte MD [address] [facility] [address] [place] [address] Endocrinology, Diabetes, and Metabolism 01/19/21 [place] [address] [facility] [address] [place] [address] Assigned Musculoskeletal Provider 02/06/21 09/16/21 Maryse Burton PA-C [address] [place] [address] Physician Presales Senior Specialist Dermatology 04/14/21 Marquita Starkey MD [address] [facility] [address] [place] [address] Internal Medicine 05/06/21 05/06/21 Roopa Almonte MD [address] [facility] [address] [place] [address] Hospitalist Endocrinology, Diabetes, and Metabolism 05/30/21 Griffin Joshi MD [address] [place] [address] Cardiovascular Disease 07/25/21 Rina Magallon, RN Lead Boomboat Operator 07/29/21 07/11/22 Griffin Joshi MD [address] [place] [address] Assigned Heart and Vascular Provider 08/06/21 10/07/21 Roopa Almonte MD [address] [place] [address] [address] [place], [place] [address] Assigned Endocrinology Provider 09/10/21 [place] [address] [employer] [facility] [place] [address] Assigned Musculoskeletal Provider 09/17/21 10/14/21 Lydia Bernstein PA-C [address] [place] [address] Assigned PCP 10/01/21 10/21/21 Rosa Maria Love Cristina Community Health Worker 10/06/21 07/11/22 [place] [address] [facility] [address] [place], [place] [address] Assigned Musculoskeletal Provider 10/15/21 04/26/23 Paula Reza MD [address] [facility] [address] [place], [place] [address] Assigned PCP 10/22/21 12/23/21 Keerthi Miner APRN HYDROELECTRIC MACHINERY MECHANIC [address] [place] [id number] Assigned Heart and Vascular Provider 10/08/21 02/10/22 Shahida Sutton APRN HYDROELECTRIC MACHINERY MECHANIC Assigned PCP 12/24/21 03/24/22 Porsha Michaels APRN HYDROELECTRIC MACHINERY MECHANIC [address] [place] [address] Assigned Heart and Vascular Provider 02/11/22 05/12/22 Paula Reza MD [address] [place] [address] Assigned PCP 03/25/22 04/07/22 Shahida Sutton, VEGETABLE II FARMWORKER HYDROELECTRIC MACHINERY MECHANIC [address] [place] [address] Assigned PCP 04/08/22 06/30/22 Daylin Ludwig, MIKI [facility] [address] [place] [address] Cardiac Rehabilitation Therapist 05/16/23 Laurel Velasquez MD [address] [place] [address] Assigned Heart and Vascular Provider 05/13/22 06/30/22 Daylin Ludwig EP [facility] [address] [place] [address] Cardiac Rehabilitation Therapist 06/08/22 06/09/23 Paula Reza MD [address] [place] [address] Assigned PCP 07/01/22 07/07/22 Porsha Michaels APRN HYDROELECTRIC MACHINERY MECHANIC [address] [place] [address] Assigned Heart and Vascular Provider 07/01/22 07/07/22 Laurel Velasquez MD [address] [place] [address] Assigned Heart and Vascular Provider 07/08/22 08/04/22 Shahida Sutton APRN HYDROELECTRIC MACHINERY MECHANIC Assigned PCP 07/08/22 09/08/22 Marilin Montaño, HYDROELECTRIC MACHINERY MECHANIC [address] [place] [address] Assigned Heart and Vascular Provider 08/05/22 Esha Dewitt MD 420 [facility] [address] [place] [address] Gastroenterology 09/06/22 Heather Mosquera MD [address] [place] [address] Internal Medicine 09/06/22 Paula Reza MD [address] [facility] 200 [place] [address] Assigned PCP 09/09/22 01/05/23 Esha Dewitt MD 420 [facility] [address] [place] [address] Assigned Gastroenterology Provider 09/23/22 Valdo Escamilla PA-C [address] [facility] [address] [place], [place] [address] Assigned Neuroscience Provider 09/30/22 Nohelia Abarca PA-C [address] [place], [place] [address] Physician Presales Senior Specialist Gastroenterology 10/03/22 Heather Mosquera MD [address] [address] Assigned PCP 01/06/23 Fawad York MD [address] [place], [place] [address] Assigned Musculoskeletal Provider 04/27/23 06/25/23 documented as of this encounter
--- OUTSIDE RECORDS SUMMARY | 2023-10-02 15:48 | XMS_ITS | Encounter Summary ---
Author Organization [facility] Address [address] [place] [address] Care Team Providers Care Hr Representative Name Role Phone HermanShahida huerta APRN CELL OPERATOR Primary Care Provi ford Unavailable Herman, Shahida Cummings APRN CELL OPERATOR Unavailable Un available Herman, Shahida Cummings APRN CELL OPERATOR Unavailable Un available Carolynn Ramon RN Unavailable [phone] Augustine Callaway MD Unavailable Brady Lino MD Unavailable Un available Nima France-C Unavailable [phone] Camille Chandler PA-C Unavailable [phone] Anabela Barakat APRN CELL OPERATOR Unavailable Nima France PA-C Unavailable Basilio Morillo DO Unavailable Fawad York MD Unavailable [phone] Roopa Almonte MD Unavailable [phone] Augustine Callaway MD Unavailable Maryse Burton PA-C Unavailable Marquita Starkey MD Unavailable [phone] Roopa Almonte MD Unavailable [phone] Griffin Joshi MD Unavailable Rina Magallon RN Unavailable [phone] Paula Reza MD Primary Care Provider [phone] Griffin Joshi MD Unavailable Roopa Almonte MD Unavailable [phone] [facility] Naik Unavailable Lydia Bernstein PA-C Unavailable Rosa Maria Love Unavailable [phone] Augustine Callaway MD Unavailable Paula Reza MD Unavailable Keerthi Miner APRN CELL OPERATOR Unavailable [phone] Herman, Shahida Cummings APRN CELL OPERATOR Unavailable Un available Porsha Michaels APRN CELL OPERATOR Unavailable [phone] Paula Reza MD Unavailable Herman, Shahida Cummings APRN CELL OPERATOR Unavailable Un available Daylin Ludwig Unavailable [phone] Laurel Velasquez MD Unavailable [phone] Daylin Ludwig Unavailable [phone] Paula eRza MD Unavailable Porsha Michaels APRN CELL OPERATOR Unavailable [phone] Laurel Velasquez MD Unavailable [phone] Herman, Shahida Cummings APRN CELL OPERATOR Unavailable Un available Marilin Montaño CELL OPERATOR Unavailable [phone] Esha Dewitt MD Unavailable [phone] Heather Mosquera MD Unavailable [phone] Paula Reza MD Unavailable Esha Dewitt MD Unavailable [phone] Valdo Escamilla PA-C Unavailable Nohelia Abarca PA-C Unavailable [phone] Heather Mosquera MD Unavailable Fawad York MD Unavailable [phone] Reason for Visit * Reason Onset Date Comments Refill Request 03/26/2017 Encounter Details Date Type Department Care Team (Late st Contact Info) Description 03/26/2017 MyC Refill [address] [address] Shahida Sutton APRN CELL OPERATOR Refill Request Social History Tobacco Use [...] for review/approval because: Drug not on the [facility] [place] refill protocol Judith Green RN, BS Clinical Nurse Triage. ED TRANSFER OPERATOR * Telephone Encounter - Judith Green RN - 03/28/2017 8:16 AM CST Disp Refills Start End TRISTON cyclobenzaprine (FLEXERIL) 10 MG tablet 60 tablet 0 01/15/2017 No Sig: TAKE 1 TABLET(10 MG) BY MOUTH THREE TIMES DAILY NEEDED FOR MUSCLE SPASMS Last OV: 03.02.17 ED TRANSFER OPERATOR * Telephone Encounter - Judith Green RN - 03/28/2017 8:15 AM CSTMessage [facility] [place] Original authorizing provider: DUANE Payton CNP would like a refill of the following medications: cyclobenzaprine (FLEXERIL) 10 MG tablet [Shahida Sutton APRN CNP] Preferred pharmacy: [facility] [address] [place] [address] AT [facility] [address] Comment: ED TRANSFER OPERATOR documented in this encounter Plan of Treatment Not on file documented as of this encounter Visit Diagnoses Diagnosis Cervicalgia Radicular pain in right arm Neuralgia, neuritis, and radiculitis, unspecified documented in this encounter Additional Health Concerns Infection Onset Date Last Indicated Resolved Time Rule Out COVID-19 02/15/2020 02/15/2020 02/16/2020 2:32 PM HOTBED TRANSFER OPERATOR Rule Out COVID-19 01/05/2021 01/05/2021 01/06/2021 12:57 PM CDT ESBL 01/05/2021 01/05/2021 Rule Out COVID-19 06/30/2021 06/30/2021 07/01/2021 9:34 AM CDT Rule Out COVID-19 07/25/2021 07/25/2021 07/25/2021 8:02 PM CDT Assessment Noted Time PHQ-9 Depression Total Score: 6 02/03/20 17 10:57 AM HOTBED TRANSFER OPERATOR documented as of this encounter Care Teams Hr Representative Relationship Specialty Start Date End Date Shahida Sutton APRN CNP PCP - General Nurse Practitioner 08/17/14 08/04/21 Shahida Sutton APRN CNP PCP - Assigned PCP 07/12/14 05/07/18 Paula Reza MD [address] [place] [address] PCP - General Internal Medicine 08/05/21 Shahida Sutton APRN CELL OPERATOR Assigned PCP 07/12/14 09/30/21 Carolynn Ramon, KASIE Personal Advocate & Liaison (PAL) 12/17/18 08/07/21 [place] [address] [place] [address] Assigned Musculoskeletal Provider 12/26/19 08/21/20 Brady Lion MD Assigned Heart and Vascular Provider 12/26/19 08/14/20 Nima France PA-C [address] [place] [address] Assigned Surgical Provider 05/19/20 08/21/20 Camille Chandler PA-C [address] [place] [address] Assigned Neuroscience Provider 05/19/20 09/14/20 Anabela Barakat APRN CELL OPERATOR [address] [place] [address] Assigned Heart and Vascular Provider 08/15/20 08/05/21 Nima France PA-C [address] [place] [address] Assigned Musculoskeletal Provider 08/22/20 11/13/20 Ilia Basilio Naik [address] [facility] [place] [address] Assigned Musculoskeletal Provider 11/14/20 12/04/20 Fawad York MD [address] [place], [place] [address] Assigned Musculoskeletal Provider 12/05/20 02/05/21 Roopa Almonte MD [address] [facility] 200 [place] [address] Endocrinology, Diabetes, and Metabolism 01/19/21 [place] [address] [facility] [address] [place] [address] Assigned Musculoskeletal Provider 02/06/21 09/16/21 Maryse Burton PA-C [address] [place] [address] Physician Soil Analyst Dermatology 04/14/21 Marquita Starkey MD [address] [facility] [address] [place] [address] Internal Medicine 05/06/21 05/06/21 Roopa Almonte MD [address] [facility] [facility] [address] [place] [address] Hospitalist Endocrinology, Diabetes, and Metabolism 05/30/21 Griffin Joshi MD [address] [facility] [address] [place] [address] Cardiovascular Disease 07/25/21 Rina Magallon, RN Lead Cane Weigher 07/29/21 07/11/22 Griffin Joshi MD [address] [place] [address] Assigned Heart and Vascular Provider 08/06/21 10/07/21 Roopa Almonte MD [address] [facility] [address] [place], [place] [address] Assigned Endocrinology Provider 09/10/21 [place] [address] [facility] [place] [address] Assigned Musculoskeletal Provider 09/17/21 10/14/21 Lydia Bernstein PA-C [address] [place] [address] Assigned PCP 10/01/21 10/21/21 Rosa Maria Love CHW Community Health Worker 10/06/21 07/11/22 [place] [address] [facility] [address] [place] [address] Assigned Musculoskeletal Provider 10/15/21 04/26/23 Paula Reza MD [address] [facility] [address] [place], [place] [address] Assigned PCP 10/22/21 12/23/21 Keerthi Miner APRN CELL OPERATOR [address] [place] [address] Assigned Heart and Vascular Provider 10/08/21 02/10/22 Shahida Sutton APRN CELL OPERATOR Assigned PCP 12/24/21 03/24/22 Porsha Michaels APRN CELL OPERATOR [address] [place] [address] Assigned Heart and Vascular Provider 02/11/22 05/12/22 Paula Reza MD [address] [place] [address] Assigned PCP 03/25/22 04/07/22 Shahida Sutton APRN CELL OPERATOR [address] [place] [address] Assigned PCP 04/08/22 06/30/22 Daylin Ludwig, EP [facility] [address] [place] [address] Cardiac Rehabilitation Therapist 05/16/23 Laurel Velasquez MD [address] [place] [address] Assigned Heart and Vascular Provider 05/13/22 06/30/22 Daylin Ludwig, EP [facility] [address] [place] [address] Cardiac Rehabilitation Therapist 06/08/22 06/09/23 Paula Reza MD [address] [place] [address] Assigned PCP 07/01/22 07/07/22 Porsha Michaels APRN CELL OPERATOR [address] [place] [address] Assigned Heart and Vascular Provider 07/01/22 07/07/22 Laurel Velasquez MD [address] [place] [address] Assigned Heart and Vascular Provider 07/08/22 08/04/22 Shahida Sutton, DUANE CELL OPERATOR Assigned PCP 07/08/22 09/08/22 Marilin Montaño, CELL OPERATOR [address] [place] [address] Assigned Heart and Vascular Provider 08/05/22 Esha Dewitt MD [address] [address] MD Gastroenterology 09/06/22 Heather Mosquera MD [address] [place] [address] Internal Medicine 09/06/22 Paula Reza MD [address] [facility] [address] [place], [place] [address] Assigned PCP 09/09/22 01/05/23 Esha Dewitt MD [address] [address] Assigned Gastroenterology Provider 09/23/22 Valdo Escamilla PA-C [address] [place] [address] Assigned Neuroscience Provider 09/30/22 Nohelia Abarca PA-C [address] [place] [address] Physician Soil Analyst Gastroenterology 10/03/22 Heather Mosquera MD [address]45 [facility] 150 [place] [address] Assigned PCP 01/06/23 Fawad York MD [address] [place], [place] [address] Assigned Musculoskeletal Provider 04/27/23 06/25/23 documented as of this encounter
--- OUTSIDE RECORDS SUMMARY | 2023-10-02 15:48 | XMS_ITS | Encounter Summary ---
Author Organization [facility] Address [address] [place] [address] Care Team Providers Care Clinical Laboratory Science Professor Name Role Phone Shahida Sutton APRN MARKETING DATABASE COORDINATOR Primary Care Provi ford Unavailable Shahida Sutton APRN MARKETING DATABASE COORDINATOR Unavailable Un available Carolynn Ramon RN Unavailable Augustine Callaway MD Unavailable Brady Lion MD Unavailable Un available Nima France-C Unavailable Camille Chandler PA-C Unavailable [phone] Anabela Barakat APRN MARKETING DATABASE COORDINATOR Unavailable Nima France PA-C Unavailable Basilio Morillo DO Unavailable [phone] Fawad York MD Unavailable Roopa Almonte MD Unavailable Augustine Callaway MD Unavailable Maryse Burton PA-C Unavailable Marquita Starkey MD Unavailable Roopa Almonte MD Unavailable Griffin Joshi MD Unavailable Rina Magallon RN Unavailable [phone] Paula Reza MD Primary Care Provider [phone] Griffin Joshi MD Unavailable Roopa Almonte MD Unavailable [phone] Basilio Morillo DO Unavailable Lydia Bernstein-C Unavailable Rosa Maria Love Unavailable [phone] Augustine Callaway MD Unavailable Paula Reza MD Unavailable Keerthi Miner APRN MARKETING DATABASE COORDINATOR Unavailable [phone] Herman, Shahida Cummings APRN MARKETING DATABASE COORDINATOR Unavailable Un available Porsha Michaels APRN MARKETING DATABASE COORDINATOR Unavailable [phone] Paula Reza MD Unavailable Shahida Sutton APRN MARKETING DATABASE COORDINATOR Unavailable Un available Daylin Ludwig Unavailable [phone] Laurel Velasquez MD Unavailable [phone] Daylin Ludwig Unavailable [phone] Palua Reza MD Unavailable Porsha Michaels APRN MARKETING DATABASE COORDINATOR Unavailable [phone] Laurel Velasquez MD Unavailable [phone] Shahida Sutton SCULPTURE INSTRUCTOR MARKETING DATABASE COORDINATOR Unavailable Un available Marilin Montaño MARKETING DATABASE COORDINATOR Unavailable [phone] Esha Dewitt MD Unavailable [phone] EvelineHeather MD Unavailable [phone] Paula Reza MD Unavailable Esha Dewitt MD Unavailable [phone] Valdo Escamilla PA-C Unavailable [phone] Nohelia Abarca PA-C Unavailable [phone] Heather Mosquera MD Unavailable Fawad York MD Unavailable [phone] Reason for Visit * Reason Onset Date Comments Referral 09/02/2019 New Eval Encounter Details Date Type Department Care Team (Late st Contact Info) Description 09/02/2019 Telephone [facility] [place] [address] [facility] [address] [place] [address] [facility] Social History Tobacco [...] Pt understood and hung up. Amberly Nam Wire Machine Cutter [facility] [place] * Telephone Encounter - Fabiola Teixeira - 09/02/2019 12:43 PM CDT LVM to schedule new eval Fabiola Teixeira Wire Machine Cutter [facility] documented in this encounter Plan of Treatment Not on file documented as of this encounter Visit Diagnoses Not on filedocumented in this encounter Additional Health Concerns Infection Onset Date Last Indicated Resolved Time Rule Out COVID-19 02/15/2020 02/15/2020 02/16/2020 2:32 PM PRODUCTION TEAM MEMBER Rule Out COVID-19 01/05/2021 01/05/2021 01/06/2021 12:57 PM CDT ESBL 01/05/2021 01/05/2021 Rule Out COVID-19 06/30/2021 06/30/2021 07/01/2021 9:34 AM CDT Rule Out COVID-19 07/25/2021 07/25/2021 07/25/2021 8:02 PM CDT Assessment Noted Time PHQ-9 Depression Total Score: 7 08/13/19 20 1:22 PM CDT documented as of this encounter Care Teams Clinical Laboratory Science Professor Relationship Specialty Start Date End Date Shahida Sutton APRN MARKETING DATABASE COORDINATOR PCP - General Nurse Practitioner 08/17/14 08/04/21 Paula Reza MD [address] [facility] [address] [place] [address] PCP - General Internal Medicine 08/05/21 Shahida Sutton APRN MARKETING DATABASE COORDINATOR Assigned PCP 07/12/14 09/30/21 Carolynn Ramon, KASIE Personal Advocate & Liaison (PAL) 12/17/18 08/07/21 [place] [address] [place] [address] Assigned Musculoskeletal Provider 12/26/19 08/21/20 Brady Lion MD Assigned Heart and Vascular Provider 12/26/19 08/14/20 Nima France PA-C [address] [facility] [address] [place] [address] Assigned Surgical Provider 05/19/20 08/21/20 Camille Chandler PA-C [address] [facility] [address] [address] [place] [address] Assigned Neuroscience Provider 05/19/20 09/14/20 Anabela Barakat APRN MARKETING DATABASE COORDINATOR [address] [place] [address] Assigned Heart and Vascular Provider 08/15/20 08/05/21 Nima France PA-C [address] [facility] [address] [place] [address] Assigned Musculoskeletal Provider 08/22/20 11/13/20 [place] [address] [facility] [place] [address] Assigned Musculoskeletal Provider 11/14/20 12/04/20 Fawad York MD [address] [place], [place] [address] Assigned Musculoskeletal Provider 12/05/20 02/05/21 Roopa Almonte MD [address] [facility] [address] [place] [address] Endocrinology, Diabetes, and Metabolism 01/19/21 [place] [address] [facility] [address] [place] [address] Assigned Musculoskeletal Provider 02/06/21 09/16/21 Maryse Burton PA-C [address] [place] [address] Physician Business Planning Director Dermatology 04/14/21 Marquita tSarkey MD [address] [facility] [address] [place], [place] [address] Internal Medicine 05/06/21 05/06/21 Roopa Almonte MD [address] [facility] [address] [place], [place] [address] Hospitalist Endocrinology, Diabetes, and Metabolism 05/30/21 Griffin Joshi MD [address] [address] [place] [address] Cardiovascular Disease 07/25/21 Rina Magallon, RN Lead Supervisor Pyrotechnic Loading 07/29/21 07/11/22 Griffin Joshi MD [address] [facility] [address] [place] [address] Assigned Heart and Vascular Provider 08/06/21 10/07/21 Roopa Almonte MD [address] [facility] [address] [place], [place] [address] Assigned Endocrinology Provider 09/10/21 [place] [address] [facility] [place] [address] Assigned Musculoskeletal Provider 09/17/21 10/14/21 Lydia Bernstein PA-C [address] [place] [address] Assigned PCP 10/01/21 10/21/21 Rosa Maria Love CHW Community Health Worker 10/06/21 07/11/22 [place] [address] [place] [address] Assigned Musculoskeletal Provider 10/15/21 04/26/23 Paula Reza MD [address] [place] [address] Assigned PCP 10/22/21 12/23/21 Keerthi Miner APRN MARKETING DATABASE COORDINATOR [address] [place] [address] Assigned Heart and Vascular Provider 10/08/21 02/10/22 Shahida Sutton APRN MARKETING DATABASE COORDINATOR Assigned PCP 12/24/21 03/24/22 Porsha Michaels APRN MARKETING DATABASE COORDINATOR [address] [place] [address] Assigned Heart and Vascular Provider 02/11/22 05/12/22 Paula Reza MD [address] [place] [address] Assigned PCP 03/25/22 04/07/22 Shahida Sutton APRN MARKETING DATABASE COORDINATOR [address] [place] [address] Assigned PCP 04/08/22 06/30/22 Daylin Ludwig, [facility] [address] [place] [address] Cardiac Rehabilitation Therapist 05/16/23 Laurel Velasquez MD [address] [place] [address] Assigned Heart and Vascular Provider 05/13/22 06/30/22 Daylin Ludwig, [facility] [address] [place], [place] [address] Cardiac Rehabilitation Therapist 06/08/22 06/09/23 Paula Reza MD [address] 24[address] Assigned PCP 07/01/22 07/07/22 Porsha Michaels APRN MARKETING DATABASE COORDINATOR [address] [place] [address] Assigned Heart and Vascular Provider 07/01/22 07/07/22 Laurel Velasquez MD [address] [place] [address] Assigned Heart and Vascular Provider 07/08/22 08/04/22 Shahida Sutton, DUANE MARKETING DATABASE COORDINATOR Assigned PCP 07/08/22 09/08/22 Marilin Montaño, MARKETING DATABASE COORDINATOR [address] [place] [address] Assigned Heart and Vascular Provider 08/05/22 Esha Dewitt MD [address] [address] MD Gastroenterology 09/06/22 Heather Mosquera MD [address] [place] [address] Internal Medicine 09/06/22 Paula Reza MD [address] [facility] [address] [place] [address] Assigned PCP 09/09/22 01/05/23 Esha Dewitt MD [address] [address] Assigned Gastroenterology Provider 09/23/22 Valdo Escamilla PA-C [address] [facility] [address] [place] [address] Assigned Neuroscience Provider 09/30/22 Nohelia Abarca PA-C [address] [place] [address] Physician Business Planning Director Gastroenterology 10/03/22 Heather Mosquera MD [address] [place], [place] [address] Assigned PCP 01/06/23 Fawad York MD [address] [place], [place] [address] Assigned Musculoskeletal Provider 04/27/23 06/25/23 documented as of this encounter
--- OUTSIDE RECORDS SUMMARY | 2023-10-02 15:49 | XMS_ITS | Encounter Summary ---
Author Organization [facility] Address [address] [place] [address] Care Team Providers Care Orientation And Mobility Instructor Name Role Phone HermanShahida huerta APRN MANAGER PE Primary Care Provi ford Unavailable Herman, Shahida Cummings APRN MANAGER PE Unavailable Un available Herman, Shahida Cummings APRN MANAGER PE Unavailable Un available Carolynn Ramon RN Unavailable [phone] Augustine Callaway MD Unavailable Brady Lion MD Unavailable Un available Nima France-C Unavailable [phone] Camille Chandler PA-C Unavailable [phone] Anabela Barakat APRN MANAGER PE Unavailable Nima France PA-C Unavailable Basilio Morillo DO Unavailable Fawad York MD Unavailable [phone] Roopa Almonte MD Unavailable [phone] Augustine Callaway MD Unavailable Maryse Burton PA-C Unavailable [phone] Marquita Starkey MD Unavailable [phone] Roopa Almonte MD Unavailable [phone] Griffin Joshi MD Unavailable Rina Magallon RN Unavailable [phone] Paula Reza MD Primary Care Provider [phone] Griffin Joshi MD Unavailable Roopa Almonte MD Unavailable [phone] [facility] Basilio Naik Unavailable Lydia Bernstein PA-C Unavailable Rosa Maria Love Unavailable [phone] Augustine Callaway MD Unavailable Paula Reza MD Unavailable Keerthi Miner APRN MANAGER PE Unavailable [phone] Herman, Shahida Cummings APRN MANAGER PE Unavailable Un available Porsha Michaels APRN MANAGER PE Unavailable [phone] Paula Reza MD Unavailable Herman, Shahida Cummings APRN MANAGER PE Unavailable Un available Daylin Ludwig Unavailable [phone] Laurel Velasquez MD Unavailable [phone] Daylin Ludwig Unavailable [phone] Paula Reza MD Unavailable Porsha Michaels APRN MANAGER PE Unavailable [phone] Laurel Velasquez MD Unavailable [phone] Herman, Shahida Cummings APRN MANAGER PE Unavailable Un available Marilin Montaño MANAGER PE Unavailable [phone] Esha Dewitt MD Unavailable Heather Mosquera MD Unavailable [phone] Paula Reza MD Unavailable Esha Dewitt MD Unavailable [phone] Valdo Escamilla PA-C Unavailable Nohelia Abarca PA-C Unavailable [phone] Heather Mosquera MD Unavailable Fawad York MD Unavailable [phone] Encounter Details Date Type Department Care Team (Late st Contact Info) Description 10/30/2014 [facility] Advice [facility] Mental Health & Addiction [place] [id number] [place] [address] [phone] Maximiliano Herrmann Social History Tobacco Use Types [...] Out COVID-19 02/15/2020 02/15/2020 02/16/2020 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 Rule Out COVID-19 01/05/2021 01/05/2021 01/06/2021 12:57 PM CDT ESBL 01/05/2021 01/05/2021 Rule Out COVID-19 06/30/2021 06/30/2021 07/01/2021 9:34 AM CDT Rule Out COVID-19 07/25/2021 07/25/2021 07/25/2021 8:02 PM CDT documented as of this encounter Care Teams Orientation And Mobility Instructor Relationship Specialty Start Date End Date Shahida Sutton APRN MANAGER PE PCP - General Nurse Practitioner 08/17/14 08/04/21 Shahida Sutton APRN MANAGER PE PCP - Assigned PCP 07/12/14 05/07/18 Paula Reza MD [address] [place] [address] PCP - General Internal Medicine 08/05/21 Shahida Sutton APRN MANAGER PE Assigned PCP 07/12/14 09/30/21 Carolynn Ramon, KASIE Personal Advocate & Liaison (PAL) 12/17/18 08/07/21 [place] [address] [place] [address] Assigned Musculoskeletal Provider 12/26/19 08/21/20 Brady Lion MD Assigned Heart and Vascular Provider 12/26/19 08/14/20 Nima France PA-C [address] [facility] [address] [place] [address] Assigned Surgical Provider 05/19/20 08/21/20 Camille Chandler PA-C [address] [facility] [address] [place] [address] Assigned Neuroscience Provider 05/19/20 09/14/20 Anabela Barakat APRN MANAGER PE [address] [place] [address] Assigned Heart and Vascular Provider 08/15/20 08/05/21 Nima France PA-C [address] [place] [address] Assigned Musculoskeletal Provider 08/22/20 11/13/20 [place] [address] [facility] [place] [address] Assigned Musculoskeletal Provider 11/14/20 12/04/20 Fawad York MD [address] [place], [place] [address] Assigned Musculoskeletal Provider 12/05/20 02/05/21 Roopa Almonte MD [address] [facility] [address] [place] [address] Endocrinology, Diabetes, and Metabolism 01/19/21 [place] [address] [facility] [address] [place] [address] Assigned Musculoskeletal Provider 02/06/21 09/16/21 Maryse Burton PA-C [address] [place] [address] Physician Paper Mill Supervisor Dermatology 04/14/21 Marquita Starkey MD [address] [place] [address] Internal Medicine 05/06/21 05/06/21 Roopa Almonte MD [address] [place] [address] Hospitalist Endocrinology, Diabetes, and Metabolism 05/30/21 Griffin Joshi MD [address] [facility] [address] [place] [address] Cardiovascular Disease 07/25/21 Rina Magallon, RN Lead Cap Blocker 07/29/21 07/11/22 Griffin Joshi MD [address] [facility] [address] [place] [address] Assigned Heart and Vascular Provider 08/06/21 10/07/21 Roopa Almonte MD [address] [address] [place], [place] [address] Assigned Endocrinology Provider 09/10/21 [place] [address] [facility] [address] Assigned Musculoskeletal Provider 09/17/21 10/14/21 Lydia Bernstein PA-C [address] [facility] [address] [place] [address] Assigned PCP 10/01/21 10/21/21 Rosa Maria Love CHW Community Health Worker 10/06/21 07/11/22 [place] [address] [address] [facility] [address] [place] [address] Assigned Musculoskeletal Provider 10/15/21 04/26/23 Paula Reza MD [address] [facility] [address] [place] [address] Assigned PCP 10/22/21 12/23/21 Keerthi Miner NETWORK LEAD MANAGER PE [address] [place] [address] Assigned Heart and Vascular Provider 10/08/21 02/10/22 Shahida Sutton APRN MANAGER PE Assigned PCP 12/24/21 03/24/22 Porsha Michaels APRN MANAGER PE [address] [place] [address] Assigned Heart and Vascular Provider 02/11/22 05/12/22 Paula Reza MD [address] [facility] [address] [place] [address] Assigned PCP 03/25/22 04/07/22 Shahida Sutton APRN MANAGER PE [address] [place] [address] Assigned PCP 04/08/22 06/30/22 Daylin Ludwig EP [facility] [address] [place] [address] Cardiac Rehabilitation Therapist 05/16/23 Laurel Velasquez MD [address] [place] [address] Assigned Heart and Vascular Provider 05/13/22 06/30/22 Daylin Lduwig EP [facility] [address] [place] [address] Cardiac Rehabilitation Therapist 06/08/22 06/09/23 Paula Reza MD [address] [place] [address] Assigned PCP 07/01/22 07/07/22 Porsha Michaels APRN MANAGER PE [address] [place] [address] Assigned Heart and Vascular Provider 07/01/22 07/07/22 Laurel Velasquez MD [address] [place] [address] Assigned Heart and Vascular Provider 07/08/22 08/04/22 Shahida Sutton APRN MANAGER PE Assigned PCP 07/08/22 09/08/22 Marilin Montaño MANAGER PE [address] [place] [address] Assigned Heart and Vascular Provider 08/05/22 Esha Dewitt MD [address] [place] [address] Gastroenterology 09/06/22 Heather Mosquera MD [address] [place] [address] Internal Medicine 09/06/22 Paula Reza MD [address] [place], [place] [address] Assigned PCP 09/09/22 01/05/23 Esha Dewitt MD [address] [place] [address] Assigned Gastroenterology Provider 09/23/22 Valdo Escamilla PA-C [address] [facility] [address] [place], [place] [address] Assigned Neuroscience Provider 09/30/22 Nohelia Abarca PA-C [address] [place], [place] [address] Physician Paper Mill Supervisor Gastroenterology 10/03/22 Heather Mosquera MD [address] [facility] [address] [place], [place] [address] Assigned PCP 01/06/23 Fawad York MD [address] [place], [place] [address] Assigned Musculoskeletal Provider 04/27/23 06/25/23 documented as of this encounter
--- OUTSIDE RECORDS SUMMARY | 2023-10-02 15:49 | XMS_ITS | Encounter Summary ---
Author Organization [facility] Address [address] [place] [address] Care Team Providers Care Senior Sales Associate Name Role Phone HermanShahida huerta APRN SUPERVISOR LAUNDRY Primary Care Provi ford Unavailable Herman, Shahida Cummings APRN SUPERVISOR LAUNDRY Unavailable Un available Herman, Shahida Cummings APRN SUPERVISOR LAUNDRY Unavailable Un available Carolynn Ramon RN Unavailable [phone] Augustine Callaway MD Unavailable Brady Lion MD Unavailable Un available Nima France-C Unavailable [phone] Camille Chandler PA-C Unavailable [phone] Anabela Barakat APRN SUPERVISOR LAUNDRY Unavailable Nima France PA-C Unavailable Basilio Morillo DO Unavailable Fawad York MD Unavailable [phone] Roopa Almonte MD Unavailable [phone] Augustine Callaway MD Unavailable Maryse Burton PA-C Unavailable [phone] Marquita Starkey MD Unavailable [phone] Roopa Almonte MD Unavailable [phone] Griffin Joshi MD Unavailable Rina Magallon RN Unavailable [phone] Paula Reza MD Primary Care Provider [phone] Griffin Joshi MD Unavailable Roopa Almonte MD Unavailable [phone] [facility] Basilio Naik Unavailable Lydia Bernstein PA-C Unavailable Rosa Maria Love Unavailable [phone] Augustine Callaway MD Unavailable Paula Reza MD Unavailable Keerthi Miner APRN SUPERVISOR LAUNDRY Unavailable [phone] Herman, Shahida Cummings APRN SUPERVISOR LAUNDRY Unavailable Un available Porsha Michaels APRN SUPERVISOR LAUNDRY Unavailable [phone] Paula Reza MD Unavailable Herman, Shahida Cummings APRN SUPERVISOR LAUNDRY Unavailable Un available Daylin Ludwig Unavailable [phone] Laurel Velasquez MD Unavailable [phone] Daylin Ludwig Unavailable [phone] Paula Reza MD Unavailable Porsha Michaels APRN SUPERVISOR LAUNDRY Unavailable [phone] Laurel Velasquez MD Unavailable [phone] Herman, Shahida Cummings APRN SUPERVISOR LAUNDRY Unavailable Un available Marilin Montaño SUPERVISOR LAUNDRY Unavailable [phone] Esha Dewitt MD Unavailable Heather Mosquera MD Unavailable [phone] Paula Reza MD Unavailable Esha Dewitt MD Unavailable [phone] Valdo Escamilla PA-C Unavailable [phone] Nohelia Abarca PA-C Unavailable [phone] Heather Mosquera MD Unavailable [phone] Fawad York MD Unavailable [phone] Encounter Details Date Type Department Care Team (Late st Contact Info) Description 08/01/2016 MyC Medical Advice [address] [address] Matilde Allen CMA Social History [...] Out COVID-19 02/15/2020 02/15/2020 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 Rule Out COVID-19 01/05/2021 01/05/2021 01/06/2021 12:57 PM CDT ESBL 01/05/2021 01/05/2021 Rule Out COVID-19 06/30/2021 06/30/2021 07/01/2021 9:34 AM CDT Rule Out COVID-19 07/25/2021 07/25/2021 07/25/2021 8:02 PM CDT Assessment Noted Time PHQ-9 Depression Total Score: 5 05/27/19 17 7:07 AM CDT documented as of this encounter Care Teams Senior Sales Associate Relationship Specialty Start Date End Date Shahida Sutton APRN SUPERVISOR LAUNDRY PCP - General Nurse Practitioner 08/17/14 08/04/21 Shahida Sutton, DUANE SUPERVISOR LAUNDRY PCP - Assigned PCP 07/12/14 05/07/18 Paula Reza MD [address] [place] [address] PCP - General Internal Medicine 08/05/21 Shahida Sutton, CONCRETE PLANT LABORER SUPERVISOR LAUNDRY Assigned PCP 07/12/14 09/30/21 Carolynn Ramon, KASIE Personal Advocate & Liaison (PAL) 12/17/18 08/07/21 [place] [address] [address] [place] [address] Assigned Musculoskeletal Provider 12/26/19 08/21/20 Brady Lion MD Assigned Heart and Vascular Provider 12/26/19 08/14/20 Nima France PA-C [address] [place] [address] Assigned Surgical Provider 05/19/20 08/21/20 Camille Chandler PA-C [address] [place] [address] Assigned Neuroscience Provider 05/19/20 09/14/20 Anabela Barakat APRN SUPERVISOR LAUNDRY [address] [place] [address] Assigned Heart and Vascular Provider 08/15/20 08/05/21 Nima France PA-C [address] [place] [address] Assigned Musculoskeletal Provider 08/22/20 11/13/20 [place] [address] [address] [place] [address] Assigned Musculoskeletal Provider 11/14/20 12/04/20 Fawad York MD [address] [place], [place] [address] Assigned Musculoskeletal Provider 12/05/20 02/05/21 Roopa Almonte MD [address] [facility] [address] [place], [place] [address] Endocrinology, Diabetes, and Metabolism 01/19/21 [place] [address] [facility] [place] [address] [place] [address] Assigned Musculoskeletal Provider 02/06/21 09/16/21 Maryse Burton PA-C [address] [place] [address] Physician Funeral Car Chauffeur Dermatology 04/14/21 Marquita Starkey MD [address] [facility] 200 [place], [place] [address] Internal Medicine 05/06/21 05/06/21 Roopa Almonte MD [address] [place] [address] Hospitalist Endocrinology, Diabetes, and Metabolism 05/30/21 Griffin Joshi MD [address] [facility] [address] [place] [address] Cardiovascular Disease 07/25/21 Rina Magallon, RN Lead Stucco Worker 07/29/21 07/11/22 Griffin Joshi MD [address] [place] [address] Assigned Heart and Vascular Provider 08/06/21 10/07/21 Roopa Almonte MD [address] [place] [address] 200 [place] [address] Assigned Endocrinology Provider 09/10/21 [place] [address] [place] [address] Assigned Musculoskeletal Provider 09/17/21 10/14/21 Lydia Bernstein PA-C [address] [place] [address] Assigned PCP 10/01/21 10/21/21 Rosa Maria Love CHW Community Health Worker 10/06/21 07/11/22 [place] [address] [facility] [place] [address] [place] [address] Assigned Musculoskeletal Provider 10/15/21 04/26/23 Paula Reza MD [address] [facility] 200 [place], [place] [address] Assigned PCP 10/22/21 12/23/21 Keerthi Miner CONCRETE PLANT LABORER SUPERVISOR LAUNDRY [address] [place] [address] Assigned Heart and Vascular Provider 10/08/21 02/10/22 Shahida Sutton APRN SUPERVISOR LAUNDRY Assigned PCP 12/24/21 03/24/22 Porsha Michaels APRN SUPERVISOR LAUNDRY [address] [place] [address] Assigned Heart and Vascular Provider 02/11/22 05/12/22 Paula Reza MD [address] [facility] 200 [place] [address] Assigned PCP 03/25/22 04/07/22 Shahida Sutton CONCRETE PLANT LABORER SUPERVISOR LAUNDRY [address] [place] [address] Assigned PCP 04/08/22 06/30/22 Daylin Ludwig, MIKI [facility] [address] [place] [address] Cardiac Rehabilitation Therapist 05/16/23 Laurel Velasquez MD [address] [place] [address] Assigned Heart and Vascular Provider 05/13/22 06/30/22 Daylin Ludwig, MIKI [facility] [address] [place] [address] Cardiac Rehabilitation Therapist 06/08/22 06/09/23 Paula Reza MD [address] [place] [address] Assigned PCP 07/01/22 07/07/22 Porsha Michaels APRN SUPERVISOR LAUNDRY [address] [place] [address] Assigned Heart and Vascular Provider 07/01/22 07/07/22 Laurel Velasquez MD [address] [place] [address] Assigned Heart and Vascular Provider 07/08/22 08/04/22 Shahida Sutton APRN SUPERVISOR LAUNDRY Assigned PCP 07/08/22 09/08/22 Marilin Montaño SUPERVISOR LAUNDRY [address] [place] [address] Assigned Heart and Vascular Provider 08/05/22 Esha Dewitt MD [address] [place] [address] Gastroenterology 09/06/22 Heather Mosquera MD [address] [place] [address] Internal Medicine 09/06/22 Paula Reza MD [address] [place] [address] Assigned PCP 09/09/22 01/05/23 Esha Dewitt MD [address] [place] [address] Assigned Gastroenterology Provider 09/23/22 Valdo Escamilla PA-C [address] [facility] 103 [place] [address] Assigned Neuroscience Provider 09/30/22 Nohelia Abarca PA-C [address] [place] [address] Physician Funeral Car Chauffeur Gastroenterology 10/03/22 Heather Mosquera MD 6545 [facility] 150 [place] [address] Assigned PCP 01/06/23 Fawad York MD [address] [place] [address] Assigned Musculoskeletal Provider 04/27/23 06/25/23 documented as of this encounter
--- OUTSIDE RECORDS SUMMARY | 2023-10-02 15:49 | XMS_ITS | Encounter Summary ---
Author Organization [facility] Address [address] [place] [address] Care Team Providers Care Disaster Response Director Name Role Phone Mingo Aldana MD Primary Car e Provider Herman, Shahida Cummings APRN RECREATION ASSISTANT Primary Care Provi ford Unavailable Herman, Shahida Cummings APRN RECREATION ASSISTANT Unavailable Un available Herman, Shahida Cummings APRN RECREATION ASSISTANT Unavailable Un available Carolynn Ramon RN Unavailable [phone] Augustine Callaway MD Unavailable Brady Lion MD Unavailable Un available Nima France-C Unavailable [phone] Camille Chandler PA-C Unavailable [phone] Anabela Barakat APRN RECREATION ASSISTANT Unavailable Nima France-C Unavailable [phone] Basilio Morillo DO Unavailable [phone] Fawad York MD Unavailable [phone] Roopa Almonte MD Unavailable [phone] Augustine Callaway MD Unavailable Maryse Burton PA-C Unavailable Marquita Starkey MD Unavailable [phone] Roopa Almonte MD Unavailable [phone] Griffin Joshi MD Unavailable Rina Magallon RN Unavailable [phone] Paula Reza MD Primary Care Provider [phone] Griffin Joshi MD Unavailable Roopa Almonte MD Unavailable [phone] [facility] island[facility] win DO Unavailable Lydia Bernstein PA-C Unavailable Rosa Maria Love Unavailable [phone] Augustine Callaway MD Unavailable Paula Reza MD Unavailable Keerthi Miner APRN RECREATION ASSISTANT Unavailable Herman, Shahida Cummings APRN RECREATION ASSISTANT Unavailable Un available Porsha Michaels APRN RECREATION ASSISTANT Unavailable [phone] Paula Reza MD Unavailable Herman, Shahida Cummings APRN RECREATION ASSISTANT Unavailable Un available Daylin Ludwig Unavailable [phone] Laurel Velasquez MD Unavailable [phone] Daylin Ludwig Unavailable [phone] Paula Reza MD Unavailable Porsha Michaels APRN RECREATION ASSISTANT Unavailable [phone] Laurel Velasquez MD Unavailable [phone] Herman, Shahida Cummings APRN RECREATION ASSISTANT Unavailable Un available Marilin Montaño RECREATION ASSISTANT Unavailable [phone] Esha Dewitt MD Unavailable [phone] Heather Mosquera MD Unavailable [phone] Paula Reza MD Unavailable Esha Dewitt MD Unavailable [phone] Valdo Escamilla Deo PA-C Unavailable [phone] Nohelia Abarca PA-C Unavailable [phone] Heather Mosquera MD Unavailable [phone] Fawad York MD Unavailable [phone] Reason for Visit * Reason Onset Date Comments Refill Request 02/09/2014 ambien Encounter Details Date Type Department Care Team (Late st Contact Info) Description 02/09/[address] [address] Mingo Aldana MD [facility] [address] [place] [address] Refill Request (ambien) Social History [...] MD] Preferred pharmacy: [id number] - [facility] [address] 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 Rule Out COVID-19 01/05/2021 01/05/2021 01/06/2021 12:57 PM CDT ESBL 01/05/2021 01/05/2021 Rule Out COVID-19 06/30/2021 06/30/2021 07/01/2021 9:34 AM CDT Rule Out COVID-19 07/25/2021 07/25/2021 07/25/2021 8:02 PM CDT documented as of this encounter Care Teams Disaster Response Director Relationship Specialty Start Date End Date Mingo Aldana MD PCP - General Family Practice 07/22/09 07/12/14 Shahida Sutton APRN RECREATION ASSISTANT PCP - General Nurse Practitioner 08/17/14 08/04/21 Shahida Sutton APRN RECREATION ASSISTANT PCP - Assigned PCP 07/12/14 05/07/18 Paula Reza MD [facility] [address] [address] PCP - General Internal Medicine 08/05/21 Shahida Sutton APRN RECREATION ASSISTANT Assigned PCP 07/12/14 09/30/21 Carolynn Ramon, KASIE Personal Advocate & Liaison (PAL) 12/17/18 08/07/21 [place] [address] [place] [address] Assigned Musculoskeletal Provider 12/26/19 08/21/20 Brady Lion MD Assigned Heart and Vascular Provider 12/26/19 08/14/20 Nima France PA-C 6545 [facility] 450 [place] [address] Assigned Surgical Provider 05/19/20 08/21/20 Camille Chandler PA-C 6545 [facility] [address] [place] [address] Assigned Neuroscience Provider 05/19/20 09/14/20 Anabela Barakat APRN CNP [facility]0 [place] [address] Assigned Heart and Vascular Provider 08/15/20 08/05/21 Nima France PA-C [address] [address] [place] [address] Assigned Musculoskeletal Provider 08/22/20 11/13/20 [place] [address] [facility] [place] [address] Assigned Musculoskeletal Provider 11/14/20 12/04/20 Fawad York MD [address] [place] [address] Assigned Musculoskeletal Provider 12/05/20 02/05/21 Roopa Almonte MD [address] [facility] 200 [place] [address] Endocrinology, Diabetes, and Metabolism 01/19/21 [place] [address] [facility] 300 [place] [address] Assigned Musculoskeletal Provider 02/06/21 09/16/21 Maryse Burton PA-C [address] [place] [address] Physician Oil Heaterman Dermatology 04/14/21 Marquita Starkey MD [address] [facility] 200 [place] [address] Internal Medicine 05/06/21 05/06/21 Roopa Almonte MD [address] [facility] 200 [place] [address] Hospitalist Endocrinology, Diabetes, and Metabolism 05/30/21 Griffin Joshi MD [address] [facility] [address] [place] [address] Cardiovascular Disease 07/25/21 Rina Magallon, RN Lead Cattle Sticker 07/29/21 07/11/22 Griffin Joshi MD [address] [facility] S [facility] [address] [place] [address] Assigned Heart and Vascular Provider 08/06/21 10/07/21 Roopa Almonte MD [address] [facility] 200 [place], [place] [address] Assigned Endocrinology Provider 09/10/21 [place] [address] [facility] [address] [place] [address] Assigned Musculoskeletal Provider 09/17/21 10/14/21 Lydia Bernstein PA-C [address] [place] [address] Assigned PCP 10/01/21 10/21/21 Rosa Maria Love CHW Community Health Worker 10/06/21 [place] [address] [place] [address] Assigned Musculoskeletal Provider 10/15/21 04/26/23 Paula Reza MD [address] [place], [place] [address] Assigned PCP 10/22/21 12/23/21 Keerthi Miner APRN RECREATION ASSISTANT [address] [place] [address] Assigned Heart and Vascular Provider 10/08/21 02/10/22 Shahida Sutton APRN RECREATION ASSISTANT Assigned PCP 12/24/21 03/24/22 Porsha Michaels APRN RECREATION ASSISTANT [address] [place] [address] Assigned Heart and Vascular Provider 02/11/22 05/12/22 Paula Reza MD [address] [place] [address] Assigned PCP 03/25/22 04/07/22 Shahida Sutton APRN RECREATION ASSISTANT [address] [place] [address] Assigned PCP 04/08/22 06/30/22 Daylin Ludwig, MIKI [facility] [address] [place] [address] Cardiac Rehabilitation Therapist 05/16/23 Laurel Velasquez MD [address] [place] [address] Assigned Heart and Vascular Provider 05/13/22 06/30/22 Daylin Ludwig, MIKI [facility] [address] [place] [address] Cardiac Rehabilitation Therapist 06/08/22 06/09/23 Paula Reza MD [address] [place] [address] Assigned PCP 07/01/22 07/07/22 Porsha Michaels APRN RECREATION ASSISTANT [address] [place] [address] Assigned Heart and Vascular Provider 07/01/22 07/07/22 Laurel Velasquez MD [address] [place] [address] Assigned Heart and Vascular Provider 07/08/22 08/04/22 Shahida Sutton APRN RECREATION ASSISTANT Assigned PCP 07/08/22 09/08/22 Marilin Montaño, RECREATION ASSISTANT [address] [place] [address] Assigned Heart and Vascular Provider 08/05/22 Esha Dewitt MD 420 [facility] 36 [place], [place] [address] MD Gastroenterology 09/06/22 Heather Mosquera MD [address] [place] [address] Internal Medicine 09/06/22 Paula Reza MD [address] [facility] 200 [place], [place] [address] Assigned PCP 09/09/22 01/05/23 Esha Dewitt MD 420 [facility] 36 [place], [place] [address] Assigned Gastroenterology Provider 09/23/22 Valdo Escamilla PA-C [address] [facility] [address] [place], [place] [address] Assigned Neuroscience Provider 09/30/22 Nohelia Abarca PA-C [address] [place], [place] [address] Physician Oil Heaterman Gastroenterology 10/03/22 Heather Mosquera MD [address] [place] [address] Assigned PCP 01/06/23 Fawad York MD [address] [place] [address] Assigned Musculoskeletal Provider 04/27/23 06/25/23 documented as of this encounter
--- OUTSIDE RECORDS SUMMARY | 2023-10-02 15:49 | XMS_ITS | Encounter Summary ---
Author Organization [facility] Address [address] [place] [address] Care Team Providers Care Skip Hoist Engineer Name Role Phone Mingo Aldana MD Primary Car e Provider Herman, Shahida Cummings APRN IN SERVICE EDUCATOR Primary Care Provi ford Unavailable Herman, Shahida Cummings APRN IN SERVICE EDUCATOR Unavailable Un available Herman, Shahida Cummings APRN IN SERVICE EDUCATOR Unavailable Un available Carolynn Ramon RN Unavailable [phone] Augustine Callaway MD Unavailable Brady Lion MD Unavailable Un available Nima France-C Unavailable [phone] Camille Chandler PA-C Unavailable [phone] Anabela Barakat APRN IN SERVICE EDUCATOR Unavailable Nima France-C Unavailable [phone] Basilio Morillo DO Unavailable [phone] Fawad York MD Unavailable [phone] Roopa Almonte MD Unavailable [phone] Augustine Callaway MD Unavailable Maryse Burton PA-C Unavailable Marquita Starkey MD Unavailable [phone] Roopa Almonte MD Unavailable [phone] Griffin Joshi MD Unavailable Rina Magallon RN Unavailable [phone] Paula Reza MD Primary Care Provider [phone] Griffin Joshi MD Unavailable Roopa Almonte MD Unavailable [phone] [facility] win DO Unavailable Lydia Bernstein PA-C Unavailable Rosa Maria Love Unavailable [phone] Augustine Callaway MD Unavailable Paula Reza MD Unavailable Keerthi Miner APRN IN SERVICE EDUCATOR Unavailable Herman, Shahida Cummings APRN IN SERVICE EDUCATOR Unavailable Un available Porsha Michaels APRN IN SERVICE EDUCATOR Unavailable [phone] Paula Reza MD Unavailable Herman, Shahida Cummings APRN IN SERVICE EDUCATOR Unavailable Un available Daylin Ludwig Unavailable [phone] Laurel Velasquez MD Unavailable [phone] Daylin Ludwig Unavailable [phone] Paula Reza MD Unavailable Porsha Michaels APRN IN SERVICE EDUCATOR Unavailable [phone] Laurel Velasquez MD Unavailable [phone] Herman, Shahida Cummings APRN IN SERVICE EDUCATOR Unavailable Un available Marilin Montaño IN SERVICE EDUCATOR Unavailable [phone] Esha Dewitt MD Unavailable [phone] Heather Mosquera MD Unavailable Paula Reza MD Unavailable Esha Dewitt MD Unavailable [phone] Valdo Escamilla Deo PA-C Unavailable Nohelia Abarca PA-C Unavailable [phone] Heather Mosquera MD Unavailable Fawad York MD Unavailable [phone] Reason for Visit * Reason Onset Date Comments Refill Request 01/05/2014 norco Encounter Details Date Type Department Care Team (Late st Contact Info) Description 01/05/[address] [address] Mingo Aldana MD [facility] [address] [place] [address] Refill Request ([email or web address]) Social History Tobacco Use Types Packs/Day Years [...] PM CST Patient informed to pick-up via BigBad. TIME CAPTIONER * Telephone Encounter - Shayla Callahan RN - 01/05/2014 12:52 PM CSTMessage from STEMpowerkidst: Original authorizing provider: Mingo Aldana MD, MD Mauro Terrell would like a refill of the following medications: HYDROcodone-acetaminophen (NORCO) 10-325 MG per tablet [Mingo Aldana MD, MD] Preferred pharmacy: [id number] [address] [address] Calderon Comment: TIME CAPTIONER documented in this encounter Plan of Treatment Not on file documented as of this encounter Visit Diagnoses Diagnosis Cervicalgia Radicular pain in right arm Neuralgia, neuritis, and radiculitis, unspecified documented in this encounter Additional Health Concerns Infection Onset Date Last Indicated Resolved Time Rule Out COVID-19 02/15/2020 02/15/2020 02/16/2020 2:32 PM REALTIME CAPTIONER Rule Out COVID-19 01/05/2021 01/05/2021 01/06/2021 12:57 PM CDT ESBL 01/05/2021 01/05/2021 Rule Out COVID-19 06/30/2021 06/30/2021 07/01/2021 9:34 AM CDT Rule Out COVID-19 07/25/2021 07/25/2021 07/25/2021 8:02 PM CDT documented as of this encounter Care Teams Skip Hoist Engineer Relationship Specialty Start Date End Date Mingo Aldana MD PCP - General Family Practice 07/22/09 07/12/14 Shahida Sutton APRN IN SERVICE EDUCATOR PCP - General Nurse Practitioner 08/17/14 08/04/21 Shahida Sutton APRN IN SERVICE EDUCATOR PCP - Assigned PCP 07/12/14 05/07/18 Paula Reza MD [address] [address] PCP - General Internal Medicine 08/05/21 Shahida Sutton APRN CNP Assigned PCP 07/12/14 09/30/21 Carolynn Ramon, KASIE Personal Advocate & Liaison (PAL) 12/17/18 08/07/21 [place] [address] [place] [address] Assigned Musculoskeletal Provider 12/26/19 08/21/20 Brady Lion MD Assigned Heart and Vascular Provider 12/26/19 08/14/20 Nima France PA-C [address] [place] [address] Assigned Surgical Provider 05/19/20 08/21/20 Camille Chandler PA-C [address] [place] [address] Assigned Neuroscience Provider 05/19/20 09/14/20 Anabela Barakat APRN IN SERVICE EDUCATOR [address] [place] [address] Assigned Heart and Vascular Provider 08/15/20 08/05/21 Nima France PA-C [address] [place], [place] [address] Assigned Musculoskeletal Provider 08/22/20 11/13/20 [place] [address] [facility] [place] [address] Assigned Musculoskeletal Provider 11/14/20 12/04/20 Fawad York MD [address] [place], [place] [address] Assigned Musculoskeletal Provider 12/05/20 02/05/21 Roopa Almonte MD [address] [facility] 200 [place] [address] Endocrinology, Diabetes, and Metabolism 01/19/21 [place] [address] [facility] [address] [place] [address] Assigned Musculoskeletal Provider 02/06/21 09/16/21 Maryse Burton PA-C [address] [place] [address] Physician Backup Operator Dermatology 04/14/21 Marquita Starkey MD [address] [facility] [address] [place] [address] Internal Medicine 05/06/21 05/06/21 Roopa Almonte MD [address] [facility] [address] [place] [address] Hospitalist Endocrinology, Diabetes, and Metabolism 05/30/21 Griffin Joshi MD [address] [place] [address] Cardiovascular Disease 07/25/21 Rina Magallon, RN Lead Psych Rn 07/29/21 07/11/22 Griffin Joshi MD [address] [place] [address] Assigned Heart and Vascular Provider 08/06/21 10/07/21 Roopa Almonte MD [address] [facility] [address] [place] [address] Assigned Endocrinology Provider 09/10/21 [place] [address] [facility] [place] [address] Assigned Musculoskeletal Provider 09/17/21 10/14/21 Lydia Bernstein PA-C [address] [place] [address] Assigned PCP 10/01/21 10/21/21 Rosa Maria Love Cristina Community Health Worker 10/06/21 [place] [address] [facility] [address] [place] [address] Assigned Musculoskeletal Provider 10/15/21 04/26/23 Paula Reza MD [address] [facility] [address] [place] [address] Assigned PCP 10/22/21 12/23/21 Keerthi Miner APRN IN SERVICE EDUCATOR [address] [place] [address] Assigned Heart and Vascular Provider 10/08/21 02/10/22 Shahida Sutton APRN IN SERVICE EDUCATOR Assigned PCP 12/24/21 03/24/22 Porsha Michaels APRN IN SERVICE EDUCATOR [address] [place] [address] Assigned Heart and Vascular Provider 02/11/22 05/12/22 Paula Reza MD [address] [place] [address] Assigned PCP 03/25/22 04/07/22 Shahida Sutton APRN IN SERVICE EDUCATOR [address] [place] [address] Assigned PCP 04/08/22 06/30/22 Daylin Ludwig, EP [facility] [address] [place] [address] Cardiac Rehabilitation Therapist 05/16/23 Laurel Velasquez MD [address] [place] [address] Assigned Heart and Vascular Provider 05/13/22 06/30/22 Daylin Ludwig, [facility] [address] [place] [address] Cardiac Rehabilitation Therapist 06/08/22 06/09/23 Paula Reza MD [address] [place] [address] Assigned PCP 07/01/22 07/07/22 Porsha Michaels APRN IN SERVICE EDUCATOR [address] [place] [address] Assigned Heart and Vascular Provider 07/01/22 07/07/22 Laurel Velasquez MD [address] [place], [place] [address] Assigned Heart and Vascular Provider 07/08/22 08/04/22 Shahida Sutton, JANITOR CLEANER IN SERVICE EDUCATOR Assigned PCP 07/08/22 09/08/22 Marilin Montaño, IN SERVICE EDUCATOR [address] [place] [address] Assigned Heart and Vascular Provider 08/05/22 Esha Dewitt MD [address] [address] Gastroenterology 09/06/22 Heather Mosquera MD [address] [place] [address] Internal Medicine 09/06/22 Paula Reza MD [address] [facility] [address] [place] [address] Assigned PCP 09/09/22 01/05/23 Esha Dewitt MD [address] [address] Assigned Gastroenterology Provider 09/23/22 Valdo Escamilla PA-C [address] [place] [address] Assigned Neuroscience Provider 09/30/22 Nohelia Abarca PA-C [address] [place] [address] Physician Backup Operator Gastroenterology 10/03/22 Heather Mosquera MD [address] [address] Assigned PCP 01/06/23 Fawad York MD [address] [place], [place] [address] Assigned Musculoskeletal Provider 04/27/23 06/25/23 documented as of this encounter
--- OUTSIDE RECORDS SUMMARY | 2023-10-02 15:49 | XMS_ITS | Encounter Summary ---
Author Organization [facility] Address [address] [place] [address] Care Team Providers Care Targeteer Name Role Phone Mingo Aldana MD Primary Car e Provider Herman, Shahida Cummings APRN COMMISSARY HELPER Primary Care Provi ford Unavailable Herman, Shahida Cummings APRN COMMISSARY HELPER Unavailable Un available Herman, Shahida Cummings APRN COMMISSARY HELPER Unavailable Un available Carolynn Ramon RN Unavailable [phone] Augustine Callaway MD Unavailable Brady Lion MD Unavailable Un available Nima France-C Unavailable [phone] Camille Chandler PA-C Unavailable [phone] Anabela Barakat APRN COMMISSARY HELPER Unavailable Nima France-C Unavailable [phone] Basilio Morillo DO Unavailable Fawad York MD Unavailable [phone] Roopa Almonte MD Unavailable [phone] Augustine Callaway MD Unavailable Maryse Burton PA-C Unavailable Marquita Starkey MD Unavailable [phone] Roopa Almonte MD Unavailable [phone] Griffin Joshi MD Unavailable Rina Magallon RN Unavailable [phone] Paula Reza MD Primary Care Provider [phone] Griffin Joshi MD Unavailable Roopa Almonte MD Unavailable [phone] [facility] islandBasilio win DO Unavailable Lydia Bernstein PA-C Unavailable Rosa Maria Love Unavailable [phone] Augustine Callaway MD Unavailable Paula Reza MD Unavailable Keerthi Miner APRN COMMISSARY HELPER Unavailable Herman, Shahida Cummings APRN COMMISSARY HELPER Unavailable Un available Porsha Michaels APRN COMMISSARY HELPER Unavailable [phone] Paula Reza MD Unavailable Herman, Shahida Cummings APRN COMMISSARY HELPER Unavailable Un available Daylin Ludwig Unavailable [phone] Laurel Velasquez MD Unavailable [phone] Daylin Ludwig Unavailable [phone] Paula Reza MD Unavailable Porsha Michaels APRN COMMISSARY HELPER Unavailable [phone] Laurel Velasquez MD Unavailable [phone] Herman, Shahida Cummings APRN COMMISSARY HELPER Unavailable Un available Marilin Montaño COMMISSARY HELPER Unavailable [phone] Esha Dewitt MD Unavailable [phone] Heather Mosquera MD Unavailable Paula Reza MD Unavailable Esha Dewitt MD Unavailable [phone] Valdo Escamilla PA-C Unavailable Nohelia Abarca PA-C Unavailable [phone] Heather Mosquera MD Unavailable [phone] Fawad York MD Unavailable [phone] Encounter Details Date Type Department Care Team (Late st Contact Info) Description 03/27/2013 [facility] [address] [address] Brenda Nicolas MA Social History [...] Out COVID-19 02/15/2020 02/15/2020 02/16/2020 2:32 PM CUSTODIAN Rule Out COVID-19 01/05/2021 01/05/2021 01/06/2021 12:57 PM CDT ESBL 01/05/2021 01/05/2021 Rule Out COVID-19 06/30/2021 06/30/2021 07/01/2021 9:34 AM CDT Rule Out COVID-19 07/25/2021 07/25/2021 07/25/2021 8:02 PM CDT documented as of this encounter Care Teams Targeteer Relationship Specialty Start Date End Date Mingo Aldana MD PCP - General Family Practice 07/22/09 07/12/14 Shahida Sutton APRN COMMISSARY HELPER PCP - General Nurse Practitioner 08/17/14 08/04/21 Shahida Sutton APRN COMMISSARY HELPER PCP - Assigned PCP 07/12/14 05/07/18 Paula Reza MD [address] [facility] [address] [place] [address] PCP - General Internal Medicine 08/05/21 Shahida Sutton APRN COMMISSARY HELPER Assigned PCP 07/12/14 09/30/21 Carolynn Ramon RN Personal Advocate & Liaison (PAL) 12/17/18 08/07/21 [place] [address] [place], [place] [address] Assigned Musculoskeletal Provider 12/26/19 08/21/20 Brady Lion MD Assigned Heart and Vascular Provider 12/26/19 08/14/20 Nima France PA-C [address] [place] [address] Assigned Surgical Provider 05/19/20 08/21/20 Camille Chandler PA-C [address] [place] [address] Assigned Neuroscience Provider 05/19/20 09/14/20 Anabela Barakat APRN COMMISSARY HELPER [address] [place] [address] Assigned Heart and Vascular Provider 08/15/20 08/05/21 Nima France PA-C [address] [facility] 450 [place] [address] Assigned Musculoskeletal Provider 08/22/20 11/13/20 [place] [address] [facility] [place], [place] [address] Assigned Musculoskeletal Provider 11/14/20 12/04/20 Fawad York MD [address] [place], [place] [address] Assigned Musculoskeletal Provider 12/05/20 02/05/21 Roopa Almonte MD [address] [facility] [address] [place] [address] Endocrinology, Diabetes, and Metabolism 01/19/21 [place] [address] [facility] [address] [place] [address] Assigned Musculoskeletal Provider 02/06/21 09/16/21 Maryse Burton PA-C [address] [place] [address] Physician Pompom Maker Dermatology 04/14/21 Marquita Starkey MD [address] [facility] 200 [place] [address] Internal Medicine 05/06/21 05/06/21 Roopa Almonte MD [address] [place] [address] Hospitalist Endocrinology, Diabetes, and Metabolism 05/30/21 Griffin Joshi MD [address] [facility] [address] [place] [address] Cardiovascular Disease 07/25/21 Rina Magallon, RN Lead Foundation Drill Operator Helper 07/29/21 07/11/22 Griffin Joshi MD [address] [place] [address] Assigned Heart and Vascular Provider 08/06/21 10/07/21 Roopa Almonte MD [address] [facility] 200 [place] [address] Assigned Endocrinology Provider 09/10/21 [place] [address] [place] [address] Assigned Musculoskeletal Provider 09/17/21 10/14/21 Lydia Bernstein PA-C [address] [facility] [address] [place] [address] Assigned PCP 10/01/21 10/21/21 Rosa Maria Love CHW Community Health Worker 10/06/21 [place] [address] [place] [address] Assigned Musculoskeletal Provider 10/15/21 04/26/23 Paula Reza MD [address] [place] [address] Assigned PCP 10/22/21 12/23/21 Keerthi Miner APRN COMMISSARY HELPER [address] [place] [address] Assigned Heart and Vascular Provider 10/08/21 02/10/22 Shahida Sutton APRN COMMISSARY HELPER Assigned PCP 12/24/21 03/24/22 Porsha Michaels APRN COMMISSARY HELPER [address] [place] [address] Assigned Heart and Vascular Provider 02/11/22 05/12/22 Paula Reza MD [address] [place] [address] Assigned PCP 03/25/22 04/07/22 Shahida Sutton APRN COMMISSARY HELPER [address] [place] [address] Assigned PCP 04/08/22 06/30/22 Daylin Ludwig, [facility] [address] [place] [address] Cardiac Rehabilitation Therapist 05/16/23 Laurel Velasquez MD [address] [place] [address] Assigned Heart and Vascular Provider 05/13/22 06/30/22 Daylin Ludwig, [facility] [address] [place], [place] [address] Cardiac Rehabilitation Therapist 06/08/22 06/09/23 Paula Reza MD [address] [place], [place] [address] Assigned PCP 07/01/22 07/07/22 Porsha Michaels APRN COMMISSARY HELPER [address] [place] [address] Assigned Heart and Vascular Provider 07/01/22 07/07/22 Laurel Velasquez MD [address] [place] [address] Assigned Heart and Vascular Provider 07/08/22 08/04/22 Shahida Sutton, DUANE COMMISSARY HELPER Assigned PCP 07/08/22 09/08/22 Marilin Montaño, COMMISSARY HELPER [address] [place] [address] Assigned Heart and Vascular Provider 08/05/22 Esha Dewitt MD [address] [place] [address] 36 [place], [place] [address] Gastroenterology 09/06/22 Haether Mosquera MD [address] [place] [address] Internal Medicine 09/06/22 Paula Reza MD [address] [place] [address] Assigned PCP 09/09/22 01/05/23 Esha Dewitt MD 420 [facility] 36 [place], [place] [address] Assigned Gastroenterology Provider 09/23/22 Valdo Escamilla PA-C [address] [facility] [address] [place] [address] Assigned Neuroscience Provider 09/30/22 Nohelia Abarca PA-C [address] [place] [address] Physician Pompom Maker Gastroenterology 10/03/22 Heather Mosquera MD [address] [facility] [address] [facility] 150 [place] [address] Assigned PCP 01/06/23 Fawad York MD [address] [place], [place] [address] Assigned Musculoskeletal Provider 04/27/23 06/25/23 documented as of this encounter
--- OUTSIDE RECORDS SUMMARY | 2023-10-02 15:49 | XMS_ITS | Encounter Summary ---
Author Organization [facility] Address [address] [place] [address] Care Team Providers Care Ict Project Manager Name Role Phone Mingo Aldana MD Primary Car e Provider Herman, Shahida Cummings APRN SEARCH SPECIALIST Primary Care Provi ford Unavailable Herman, Shahida Cummings APRN SEARCH SPECIALIST Unavailable Un available Herman, Shahida Cummings APRN SEARCH SPECIALIST Unavailable Un available Carolynn Ramon RN Unavailable [phone] Augustine Callaway MD Unavailable Brady Lion MD Unavailable Un available Nima France-C Unavailable [phone] Camille Chandler PA-C Unavailable [phone] Anabela Barakat APRN SEARCH SPECIALIST Unavailable Nima France-C Unavailable [phone] Basilio Morillo DO Unavailable Fawad York MD Unavailable [phone] Roopa Almonte MD Unavailable [phone] Augustine Callaway MD Unavailable Maryse Burton PA-C Unavailable Marquita Starkey MD Unavailable [phone] Roopa Almonte MD Unavailable [phone] Griffin Joshi MD Unavailable Rina Magallon RN Unavailable [phone] Paula Reza MD Primary Care Provider [phone] Griffin Joshi MD Unavailable Roopa Almonte MD Unavailable [phone] [facility] center[facility] win DO Unavailable Lydia Bernstein PA-C Unavailable Rosa Maria Love Unavailable [phone] Augustine Callaway MD Unavailable Paula Reza MD Unavailable Keerthi Miner APRN SEARCH SPECIALIST Unavailable Herman, Shahida Cummings APRN SEARCH SPECIALIST Unavailable Un available Porsha Michaels APRN SEARCH SPECIALIST Unavailable [phone] Paula Reza MD Unavailable Herman, Shahida Cummings APRN SEARCH SPECIALIST Unavailable Un available Daylin Ludwig Unavailable [phone] Laurel Velasquez MD Unavailable [phone] Daylin Ludwig Unavailable [phone] Paula Reza MD Unavailable Porsha Michaels APRN SEARCH SPECIALIST Unavailable [phone] Laurel Velasquez MD Unavailable [phone] Herman, Shahida Cummings APRN SEARCH SPECIALIST Unavailable Un available Marilni Montaño SEARCH SPECIALIST Unavailable [phone] Esha Dewitt MD Unavailable [phone] Heather Mosquera MD Unavailable [phone] Paula Reza MD Unavailable Esha Dewitt MD Unavailable [phone] Valdo Escamilla PA-C Unavailable Nohelia Abarca PA-C Unavailable Heather Mosquera MD Unavailable Fawad York MD Unavailable [phone] Encounter Details Date Type Department Care Team (Late st Contact Info) Description 03/27/2013 [facility] [address] [address] Brenda Nicolas MA Social History [...] Out COVID-19 02/15/2020 02/15/2020 02/16/2020 2:32 PM SEISMIC PROSPECTING OBSERVER Rule Out COVID-19 01/05/2021 01/05/2021 01/06/2021 12:57 PM CDT ESBL 01/05/2021 01/05/2021 Rule Out COVID-19 06/30/2021 06/30/2021 07/01/2021 9:34 AM CDT Rule Out COVID-19 07/25/2021 07/25/2021 07/25/2021 8:02 PM CDT documented as of this encounter Care Teams Ict Project Manager Relationship Specialty Start Date End Date Mingo Aldana MD PCP - General Family Practice 07/22/09 07/12/14 Shahida Sutton APRN SEARCH SPECIALIST PCP - General Nurse Practitioner 08/17/14 08/04/21 Shahida Sutton APRN SEARCH SPECIALIST PCP - Assigned PCP 07/12/14 05/07/18 Paula Reza MD [address] [facility] [address] [place] [address] PCP - General Internal Medicine 08/05/21 Shahida Sutton APRN SEARCH SPECIALIST Assigned PCP 07/12/14 09/30/21 Carolynn Ramon RN Personal Advocate & Liaison (PAL) 12/17/18 08/07/21 [place] [address] [address] [place], [place] [address] Assigned Musculoskeletal Provider 12/26/19 08/21/20 rBady Lion MD Assigned Heart and Vascular Provider 12/26/19 08/14/20 Nima France PA-C [address] [place] [address] Assigned Surgical Provider 05/19/20 08/21/20 Camille Chandler PA-C [address] [place] [address] Assigned Neuroscience Provider 05/19/20 09/14/20 Anabela Barakat APRN SEARCH SPECIALIST [address] [place] [address] Assigned Heart and Vascular Provider 08/15/20 08/05/21 Nima France PA-C [address] [facility] [address] [place] [address] Assigned Musculoskeletal Provider 08/22/20 11/13/20 [place] [address] [facility] [place], [place] [address] Assigned Musculoskeletal Provider 11/14/20 12/04/20 Fawad York MD [address] [place], [place] [address] Assigned Musculoskeletal Provider 12/05/20 02/05/21 Roopa Almonte MD [address] [facility] 200 [place] [address] Endocrinology, Diabetes, and Metabolism 01/19/21 [place] [address] [facility] [address] [place] [address] Assigned Musculoskeletal Provider 02/06/21 09/16/21 Maryse Burton PA-C [address] [place] [address] Physician Vice President Of Business Development Dermatology 04/14/21 Marquita Starkey MD [address] [facility] 200 [place] [address] Internal Medicine 05/06/21 05/06/21 Roopa Almonte MD [address] [place] [address] Hospitalist Endocrinology, Diabetes, and Metabolism 05/30/21 Griffin Joshi MD [address] [facility] [address] [place] [address] Cardiovascular Disease 07/25/21 Rina Magallon, RN Lead Guide Domestic Tour 07/29/21 07/11/22 Griffin Joshi MD [address] [place] [address] Assigned Heart and Vascular Provider 08/06/21 10/07/21 Roopa Almonte MD [address] [facility] 200 [place] [address] Assigned Endocrinology Provider 09/10/21 [place] [address] [facility] [place] [address] Assigned Musculoskeletal Provider 09/17/21 10/14/21 Lydia Bernstein PA-C [address] [facility] [address] [place] [address] Assigned PCP 10/01/21 10/21/21 Rosa Maria Love CHW Community Health Worker 10/06/21 [place] [address] [address] [place] [address] Assigned Musculoskeletal Provider 10/15/21 04/26/23 Paula Reza MD [address] [place] [address] Assigned PCP 10/22/21 12/23/21 Keerthi Miner APRN SEARCH SPECIALIST [address] [place] [address] Assigned Heart and Vascular Provider 10/08/21 02/10/22 Shahida Sutton APRN SEARCH SPECIALIST Assigned PCP 12/24/21 03/24/22 Porsha Michaels APRN SEARCH SPECIALIST [address] [place] [address] Assigned Heart and Vascular Provider 02/11/22 05/12/22 Paula Reza MD [address] [place] [address] Assigned PCP 03/25/22 04/07/22 Shahida Sutton APRN SEARCH SPECIALIST [address] [place] [address] Assigned PCP 04/08/22 06/30/22 Daylin Ludwig, [facility] [address] [place] [address] Cardiac Rehabilitation Therapist 05/16/23 Laurel Velasquez MD [address] [place] [address] Assigned Heart and Vascular Provider 05/13/22 06/30/22 Dalyin Ludwig, [facility] [address] [place], [place] [address] Cardiac Rehabilitation Therapist 06/08/22 06/09/23 Paula Reza MD [address] [place], [place] [address] Assigned PCP 07/01/22 07/07/22 Porsha Michaels APRN SEARCH SPECIALIST [address] [place] [address] Assigned Heart and Vascular Provider 07/01/22 07/07/22 Laurel Velasquez MD [address] [place] [address] Assigned Heart and Vascular Provider 07/08/22 08/04/22 Shahida Sutton, DUANE SEARCH SPECIALIST Assigned PCP 07/08/22 09/08/22 Marilin Montaño, SEARCH SPECIALIST [address] [place] [address] Assigned Heart and Vascular Provider 08/05/22 Esha Dewitt MD [address] [place] [address] [address] [place], [place] [address] Gastroenterology 09/06/22 Heather Mosquera MD [address] [place] [address] Internal Medicine 09/06/22 Paula Reza MD [address] [place] [address] Assigned PCP 09/09/22 01/05/23 Esha Dewitt MD [address] [facility] 36 [place], [place] [address] Assigned Gastroenterology Provider 09/23/22 Valdo Escamilla PA-C [address] [facility] [address] [place] [address] Assigned Neuroscience Provider 09/30/22 Nohelia Abarca PA-C [address] [place] [address] Physician Vice President Of Business Development Gastroenterology 10/03/22 Heather Mosquera MD [address] [facility] [address] [address] [facility] 150 [place] [address] Assigned PCP 01/06/23 Fawad York MD [address] [place], [place] [address] Assigned Musculoskeletal Provider 04/27/23 06/25/23 documented as of this encounter
--- OUTSIDE RECORDS SUMMARY | 2023-10-02 15:49 | XMS_ITS | Encounter Summary ---
Author Organization [facility] Address [address] [place] [address] Care Team Providers Care Coastal And Estuary Specialist Name Role Phone Mingo Aldana MD Primary Car e Provider Herman, Shahida Cummings APRN BUILDING COMPONENTS DESIGNER Primary Care Provi ford Unavailable Herman, Shahida Cummings APRN BUILDING COMPONENTS DESIGNER Unavailable Un available Herman, Shahida Cummings APRN BUILDING COMPONENTS DESIGNER Unavailable Un available Carolynn Ramon RN Unavailable [phone] Augustine Callaway MD Unavailable Brady Lion MD Unavailable Un available Nima France-C Unavailable [phone] Camille Chandler PA-C Unavailable [phone] Anabela Barakat APRN BUILDING COMPONENTS DESIGNER Unavailable Nima France-C Unavailable [phone] Basilio Morillo DO Unavailable Fawad York MD Unavailable [phone] Roopa Almonte MD Unavailable [phone] Augustine Callaway MD Unavailable Maryse Burton PA-C Unavailable Marquita Starkey MD Unavailable [phone] Roopa Almonte MD Unavailable [phone] Griffin Joshi MD Unavailable Rina Magallon RN Unavailable [phone] Paula Reza MD Primary Care Provider [phone] Griffin Joshi MD Unavailable Roopa Almonte MD Unavailable [phone] [facility] win DO Unavailable Lydia Bernstein PA-C Unavailable Rosa Maria Love Unavailable [phone] Augustine Callaway MD Unavailable Paula Reza MD Unavailable Keerthi Miner APRN BUILDING COMPONENTS DESIGNER Unavailable Herman, Shahida Cummings APRN BUILDING COMPONENTS DESIGNER Unavailable Un available Porsha Michaels APRN BUILDING COMPONENTS DESIGNER Unavailable [phone] Paula Reza MD Unavailable Herman, Shahida Cummings APRN BUILDING COMPONENTS DESIGNER Unavailable Un available Daylin Lduwig Unavailable [phone] Laurel Velasquez MD Unavailable [phone] Daylin Ludwig Unavailable [phone] Paula Reza MD Unavailable Porsha Michaels APRN BUILDING COMPONENTS DESIGNER Unavailable [phone] Laurel Velasquez MD Unavailable [phone] Herman, Shahida Cummings APRN BUILDING COMPONENTS DESIGNER Unavailable Un available Marilin Montaño BUILDING COMPONENTS DESIGNER Unavailable [phone] Esha Dewitt MD Unavailable [phone] Heather Mosquera MD Unavailable Paula Reza MD Unavailable Esha Dewitt MD Unavailable [phone] AyseStanford cabrerashiv Desouza PA-C Unavailable Nohelia Abarca PA-C Unavailable [phone] Heather Mosquera MD Unavailable Fawad York MD Unavailable [phone] Reason for Visit * Reason Onset Date Comments Outreach 04/26/2013 [facility] Encounter Details Date Type Department Care Team (Late st Contact Info) Description 04/26/[address] [address] Mingo Aldana MD [facility] [address] [place] [address] Outreach (PHS) Social History Tobacco [...] Attempt 2 Message on voicemail Comments: 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 Burner 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 MRL T TINTER * Telephone Encounter - Sadiq Sol - 04/26/2013 5:12 PM CST 04/26/2013 Call Regarding Preventive Health Screening Colonoscopy Attempt 1 Message on voicemail Comments: Outreach Burner 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 rbg T TINTER documented in this encounter Plan of Treatment Not on file documented as of this encounter Visit Diagnoses Not on filedocumented in this encounter Additional Health Concerns Infection Onset Date Last Indicated Resolved Time Rule Out COVID-19 02/15/2020 02/15/2020 02/16/2020 2:32 PM PAINT TINTER Rule Out COVID-19 01/05/2021 01/05/2021 01/06/2021 12:57 PM CDT ESBL 01/05/2021 01/05/2021 Rule Out COVID-19 06/30/2021 06/30/2021 07/01/2021 9:34 AM CDT Rule Out COVID-19 07/25/2021 07/25/2021 07/25/2021 8:02 PM CDT documented as of this encounter Care Teams Coastal And Estuary Specialist Relationship Specialty Start Date End Date Mingo Aldana MD PCP - General Family Practice 07/22/09 07/12/14 Shahida Sutton APRN BUILDING COMPONENTS DESIGNER PCP - General Nurse Practitioner 08/17/14 08/04/21 Shahida Sutton APRN BUILDING COMPONENTS DESIGNER PCP - Assigned PCP 07/12/14 05/07/18 Paula Reza MD [address] [facility] 200 [place], [place] [address] PCP - General Internal Medicine 08/05/21 Shahida Sutton APRN BUILDING COMPONENTS DESIGNER Assigned PCP 07/12/14 09/30/21 Carolynn Ramon, KASIE Personal Advocate & Liaison (PAL) 12/17/18 08/07/21 [place] [address] [place] [address] Assigned Musculoskeletal Provider 12/26/19 08/21/20 Brady Lion MD Assigned Heart and Vascular Provider 12/26/19 08/14/20 Nima France PA-C [address] [facility] [address] [place] [address] Assigned Surgical Provider 05/19/20 08/21/20 Camille Chandler PA-C [address] [facility] [address] [place] [address] Assigned Neuroscience Provider 05/19/20 09/14/20 Anabela Barakat APRN BUILDING COMPONENTS DESIGNER 1700 [place] [address] Assigned Heart and Vascular Provider 08/15/20 08/05/21 Nima France PA-C [address] [facility] 450 [place] [address] Assigned Musculoskeletal Provider 08/22/20 11/13/20 [place] [address] [place] [address] Assigned Musculoskeletal Provider 11/14/20 12/04/20 Fawad York MD 9 [place] [address] Assigned Musculoskeletal Provider 12/05/20 02/05/21 Roopa Almonte MD [address] [facility] 200 [place] [address] Endocrinology, Diabetes, and Metabolism 01/19/21 [place] [address] [facility] 300 [place] [address] Assigned Musculoskeletal Provider 02/06/21 09/16/21 Maryse Burton PA-C [address] [place] [address] Physician Specialty Manufacturing Supervisor Dermatology 04/14/21 Marquita Starkey MD [address] [facility] 200 [place] [address] Internal Medicine 05/06/21 05/06/21 Roopa Almonte MD [address] [facility] 200 [place] [address] Hospitalist Endocrinology, Diabetes, and Metabolism 05/30/21 Griffin Joshi MD [address] [facility]00 [place] [address] Cardiovascular Disease 07/25/21 Rina Magallon, RN [place] River Expedition Guide 07/29/21 07/11/22 Griffin Joshi MD [address] [facility]00 [place] [address] Assigned Heart and Vascular Provider 08/06/21 10/07/21 Roopa Almonte MD [address] [facility] 200 [place], [place] [address] Assigned Endocrinology Provider 09/10/21 [place] [address] [facility] [place] [address] Assigned Musculoskeletal Provider 09/17/21 10/14/21 Lydia Bernstein, HUYC [address] [place] [address] Assigned PCP 10/01/21 10/21/21 Rosa Maria Love CHW Community Health Worker 10/06/21 [place] [address] [place] [address] Assigned Musculoskeletal Provider 10/15/21 04/26/23 Paula Reza MD [address] [place] [address] Assigned PCP 10/22/21 12/23/21 Keerthi Miner APRN BUILDING COMPONENTS DESIGNER [address] [place] [address] Assigned Heart and Vascular Provider 10/08/21 02/10/22 Shahida Sutton, PHYSICIAN REPRESENTATIVE BUILDING COMPONENTS DESIGNER Assigned PCP 12/24/21 03/24/22 Porsha Micahels APRN BUILDING COMPONENTS DESIGNER [address] [address] Assigned Heart and Vascular Provider 02/11/22 05/12/22 Paula Reza MD [address] [place] [address] Assigned PCP 03/25/22 04/07/22 Shahida Sutton APRN BUILDING COMPONENTS DESIGNER [address] [place] [address] Assigned PCP 04/08/22 06/30/22 Daylin Ludwig, [facility] [address] [address] Cardiac Rehabilitation Therapist 05/16/23 Laurel Velasquez MD [address] [address] Assigned Heart and Vascular Provider 05/13/22 06/30/22 Daylin Ludwig, [facility] [address] [address] Cardiac Rehabilitation Therapist 06/08/22 06/09/23 Paula Reza MD [address] [address] Assigned PCP 07/01/22 07/07/22 Porsha Michaels APRN BUILDING COMPONENTS DESIGNER [address] [address] Assigned Heart and Vascular Provider 07/01/22 07/07/22 Laurel Velasquez MD [address] [address] Assigned Heart and Vascular Provider 07/08/22 08/04/22 Shahida Sutton APRN BUILDING COMPONENTS DESIGNER Assigned PCP 07/08/22 09/08/22 Marilin Montaño, BUILDING COMPONENTS DESIGNER [address] [place] [address] Assigned Heart and Vascular Provider 08/05/22 Esha Dewitt MD [address] [facility] [address] [place] [address] MD Gastroenterology 09/06/22 Heather Mosquera MD [address] [place] [address] Internal Medicine 09/06/22 Paula Reza MD [address] [facility] 200 [place], [place] [address] Assigned PCP 09/09/22 01/05/23 Esha Dewitt MD [address] [facility] 36 [place], [place] [address] Assigned Gastroenterology Provider 09/23/22 Valdo Escamilla PA-C [address] [facility] [address] [address] [place] [address] Assigned Neuroscience Provider 09/30/22 Nohelia Abarca PA-C [address] [facility] [place] [place] [address] Physician Specialty Manufacturing Supervisor Gastroenterology 10/03/22 Heather Mosquera MD [address] [place] [address] Assigned PCP 01/06/23 Fawad York MD 9 [place] [address] Assigned Musculoskeletal Provider 04/27/23 06/25/23 documented as of this encounter
--- OUTSIDE RECORDS SUMMARY | 2023-10-02 15:49 | XMS_ITS | Encounter Summary ---
Author Organization [facility] Address [address] [place] [address] Care Team Providers Care Community Arts Officer Name Role Phone HermanShahida huerta APRN CHILD CARE TEACHER Primary Care Provi ford Unavailable Herman, Shahida Cummings APRN CHILD CARE TEACHER Unavailable Un available Herman, Shahida Cummings APRN CHILD CARE TEACHER Unavailable Un available Carolynn Ramon RN Unavailable [phone] Augustine Callaway MD Unavailable Brady Lion MD Unavailable Un available Nima France-C Unavailable [phone] Camille Chandler PA-C Unavailable [phone] Anabela Barakat APRN CHILD CARE TEACHER Unavailable Nima France PA-C Unavailable Basilio Morillo DO Unavailable [phone] Fawad York MD Unavailable [phone] Roopa Almonte MD Unavailable [phone] Augustine Callaway MD Unavailable Maryse Burton PA-C Unavailable Marquita Starkey MD Unavailable [phone] Roopa Almonte MD Unavailable [phone] Griffin Joshi MD Unavailable Rina Magallon RN Unavailable [phone] Paula Reza MD Primary Care Provider [phone] Griffin Joshi MD Unavailable Roopa Almonte MD Unavailable [phone] [facility] Basilio Naik Unavailable Lydia Bernstein PA-C Unavailable Rosa Maria Love Unavailable [phone] Augustine Callaway MD Unavailable Paula Reza MD Unavailable Keerthi Miner APRN CHILD CARE TEACHER Unavailable [phone] Herman, Shahida Cummings APRN CHILD CARE TEACHER Unavailable Un available Porsha Michaels APRN CHILD CARE TEACHER Unavailable [phone] Paula Reza MD Unavailable Herman, Shahida Cummings APRN CHILD CARE TEACHER Unavailable Un available Daylin Ludwig Unavailable [phone] Laurel Velasquez MD Unavailable [phone] Daylin Ludwig Unavailable [phone] Paula Reza MD Unavailable Porsha Michaels APRN CHILD CARE TEACHER Unavailable [phone] Laurel Velasquez MD Unavailable [phone] Herman, Shahida Cummings APRN CHILD CARE TEACHER Unavailable Un available Marilin Montaño CHILD CARE TEACHER Unavailable [phone] Esha Dewitt MD Unavailable [phone] Heather Mosquera MD Unavailable [phone] Paula Reza MD Unavailable Esha Dewitt MD Unavailable [phone] Valdo Escamilla PA-C Unavailable Nohelia Abarca PA-C Unavailable [phone] Heather Mosquera MD Unavailable Fawad York MD Unavailable [phone] Encounter Details Date Type Department Care Team (Late st Contact Info) Description 04/07/2015 MyC Medical Advice [address] [address] Matilde Allen CMA Social History [...] COVID-19 02/15/2020 02/15/2020 02/16/2020 2:32 PM SERVICE WRITER Rule Out COVID-19 01/05/2021 01/05/2021 01/06/2021 12:57 PM CDT ESBL 01/05/2021 01/05/2021 Rule Out COVID-19 06/30/2021 06/30/2021 07/01/2021 9:34 AM CDT Rule Out COVID-19 07/25/2021 07/25/2021 07/25/2021 8:02 PM CDT Assessment Noted Time PHQ-9 Depression Total Score: 5 01/31/20 15 7:38 AM SERVICE WRITER documented as of this encounter Care Teams Community Arts Officer Relationship Specialty Start Date End Date Shahida Sutton APRN CHILD CARE TEACHER PCP - General Nurse Practitioner 08/17/14 08/04/21 Shahida Sutton, DUANE CHILD CARE TEACHER PCP - Assigned PCP 07/12/14 05/07/18 Paula Reza MD [address] [place] [address] PCP - General Internal Medicine 08/05/21 Shahida Sutton, LIGHT ARMORED VEHICLE OFFICER CHILD CARE TEACHER Assigned PCP 07/12/14 09/30/21 Carolynn Ramon, KASIE Personal Advocate & Liaison (PAL) 12/17/18 08/07/21 [place] [address] [place] [address] Assigned Musculoskeletal Provider 12/26/19 08/21/20 Brady Lion MD Assigned Heart and Vascular Provider 12/26/19 08/14/20 Nima France PA-C [address] [facility] [address] [place] [address] Assigned Surgical Provider 05/19/20 08/21/20 Camille Chandler PA-C [address] [facility] [address] [place] [address] Assigned Neuroscience Provider 05/19/20 09/14/20 Anabela Barakat APRN CHILD CARE TEACHER [address] [place] [address] Assigned Heart and Vascular Provider 08/15/20 08/05/21 Nima France PA-C [address] [place] [address] Assigned Musculoskeletal Provider 08/22/20 11/13/20 [place] [address] [facility] [place] [address] Assigned Musculoskeletal Provider 11/14/20 12/04/20 Fawad York MD [address] [place], [place] [address] Assigned Musculoskeletal Provider 12/05/20 02/05/21 Roopa Almonte MD [address] [facility] 200 [place] [address] Endocrinology, Diabetes, and Metabolism 01/19/21 [place] [address] [facility] [address] [place] [address] Assigned Musculoskeletal Provider 02/06/21 09/16/21 Maryse Burton PA-C [address] [place] [address] Physician Esol Teacher Assistant Dermatology 04/14/21 Marquita Starkey MD [address] [facility] [address] [place] [address] Internal Medicine 05/06/21 05/06/21 Roopa Almonte MD [address] [place] [address] Hospitalist Endocrinology, Diabetes, and Metabolism 05/30/21 Griffin Joshi MD [address] [facility] [address] [place] [address] Cardiovascular Disease 07/25/21 Rina Magallon, RN Lead Freight Car Cleaner 07/29/21 07/11/22 Griffin Joshi MD [address] [place] [address] Assigned Heart and Vascular Provider 08/06/21 10/07/21 Roopa Almonte MD [address] [place] [address] 200 [place], [place] [address] Assigned Endocrinology Provider 09/10/21 [place] [address] [facility] [place] [address] Assigned Musculoskeletal Provider 09/17/21 10/14/21 Lydia Bernstein PA-C [address] [facility] [address] [place] [address] Assigned PCP 10/01/21 10/21/21 Rosa Maria Love CHW Community Health Worker 10/06/21 07/11/22 [place] [address] [facility] [address] [place] [address] Assigned Musculoskeletal Provider 10/15/21 04/26/23 Paula Reza MD [address] [facility] [address] [place], [place] [address] Assigned PCP 10/22/21 12/23/21 Keerthi Miner APRN CHILD CARE TEACHER [address] [place] [address] Assigned Heart and Vascular Provider 10/08/21 02/10/22 Shahida Sutton APRN CHILD CARE TEACHER Assigned PCP 12/24/21 03/24/22 Porsha Michaels APRN CHILD CARE TEACHER [address] [place] [address] Assigned Heart and Vascular Provider 02/11/22 05/12/22 Paula Reza MD [address] [facility] 200 [place] [address] Assigned PCP 03/25/22 04/07/22 Shahida Sutton LIGHT ARMORED VEHICLE OFFICER CHILD CARE TEACHER [address] [place] [address] Assigned PCP 04/08/22 06/30/22 Daylin Ludwig, MIKI [facility] [address] [place] [address] Cardiac Rehabilitation Therapist 05/16/23 Laurel Velasquez MD [address] [place] [address] Assigned Heart and Vascular Provider 05/13/22 06/30/22 Daylin Ludwig, MIKI [facility] [address] [place] [address] Cardiac Rehabilitation Therapist 06/08/22 06/09/23 Paula Reza MD [address] [place] [address] Assigned PCP 07/01/22 07/07/22 Porsha Michaels APRN CHILD CARE TEACHER [address] [place] [address] Assigned Heart and Vascular Provider 07/01/22 07/07/22 Laurel Velasquez MD [address] [place] [address] Assigned Heart and Vascular Provider 07/08/22 08/04/22 Shahida Sutton APRN CHILD CARE TEACHER Assigned PCP 07/08/22 09/08/22 Marilin Montaño, CHILD CARE TEACHER [address] [place] [address] Assigned Heart and Vascular Provider 08/05/22 Esha Dewitt MD [address] [place] [address] 000215 Gastroenterology 09/06/22 Heather Mosquera MD [address] [place] [address] Internal Medicine 09/06/22 Paula Reza MD [address] [place] [address] Assigned PCP 09/09/22 01/05/23 Esha Dewitt MD [address] [place] [address] Assigned Gastroenterology Provider 09/23/22 Valdo Escamilla PA-C [address] [facility] [address] [place] [address] Assigned Neuroscience Provider 09/30/22 Nohelia Abarca PA-C [address] [place] [address] Physician Esol Teacher Assistant Gastroenterology 10/03/22 Heather Mosquera MD [address] [facility] [address] [place] [address] Assigned PCP 01/06/23 aFwad York MD [address] [place] [address] Assigned Musculoskeletal Provider 04/27/23 06/25/23 documented as of this encounter
--- OUTSIDE RECORDS SUMMARY | 2023-10-02 15:49 | XMS_ITS | Encounter Summary ---
Author Organization [facility] Address [address] [place] [address] Care Team Providers Care Physical Therapy Asst Name Role Phone HermanShahida huerta APRN EXECUTIVE PRODUCER PROMOS Primary Care Provi ford Unavailable Herman, Shahida Cummings APRN EXECUTIVE PRODUCER PROMOS Unavailable Un available Herman, Shahida Cummings APRN EXECUTIVE PRODUCER PROMOS Unavailable Un available Carolynn Ramon RN Unavailable [phone] Augustine Callaway MD Unavailable Brady Lion MD Unavailable Un available Nima France-C Unavailable [phone] Camille Chandler PA-C Unavailable [phone] Anabela Barakat APRN EXECUTIVE PRODUCER PROMOS Unavailable Nima France PA-C Unavailable Basilio Morillo DO Unavailable [phone] Fawad York MD Unavailable [phone] Roopa Almonte MD Unavailable [phone] Augustine Callaway MD Unavailable Maryse Burton PA-C Unavailable Marquita Starkey MD Unavailable [phone] Roopa Almonte MD Unavailable [phone] Griffin Joshi MD Unavailable Rina Magallon RN Unavailable [phone] Paula Reza MD Primary Care Provider [phone] Griffin Joshi MD Unavailable Roopa Almonte MD Unavailable [phone] [facility] Basilio Naik Unavailable Lydia Bernstein PA-C Unavailable Rosa Maria Love Unavailable [phone] Augustine Callaway MD Unavailable Paula Reza MD Unavailable Keerthi Miner APRN EXECUTIVE PRODUCER PROMOS Unavailable [phone] Herman, Shahida Cummings APRN EXECUTIVE PRODUCER PROMOS Unavailable Un available Porsha Michaels APRN EXECUTIVE PRODUCER PROMOS Unavailable [phone] Paula Reza MD Unavailable Herman, Shahida Cummings APRN EXECUTIVE PRODUCER PROMOS Unavailable Un available Daylin Ludwig Unavailable [phone] Laurel Velasquez MD Unavailable [phone] Daylin Ludwig Unavailable [phone] Paula Reza MD Unavailable Porsha Michaels APRN EXECUTIVE PRODUCER PROMOS Unavailable [phone] Laurel Velasquez MD Unavailable [phone] Herman, Shahida Cummings APRN EXECUTIVE PRODUCER PROMOS Unavailable Un available Marilin Montaño EXECUTIVE PRODUCER PROMOS Unavailable [phone] Esha Dewitt MD Unavailable [phone] Heather Mosquera MD Unavailable [phone] Paula Reza MD Unavailable Esha Dewitt MD Unavailable [phone] Valdo Escamilla PA-C Unavailable Nohelia Abarca PA-C Unavailable [phone] Haether Mosquera MD Unavailable Fawad York MD Unavailable Encounter Details Date Type Department Care Team (Late st Contact Info) Description 12/28/2015 MyC Medical Advice [address] [address] Matilde Allen CMA Social History [...] Out COVID-19 02/15/2020 02/15/2020 02/16/2020 2:32 PM JACQUARD CARD LACER Rule Out COVID-19 01/05/2021 01/05/2021 01/06/2021 12:57 PM CDT ESBL 01/05/2021 01/05/2021 Rule Out COVID-19 06/30/2021 06/30/2021 07/01/2021 9:34 AM CDT Rule Out COVID-19 07/25/2021 07/25/2021 07/25/2021 8:02 PM CDT Assessment Noted Time PHQ-9 Depression Total Score: 7 11/17/19 16 7:18 AM CDT documented as of this encounter Care Teams Physical Therapy Asst Relationship Specialty Start Date End Date Shahida Sutton APRN EXECUTIVE PRODUCER PROMOS PCP - General Nurse Practitioner 08/17/14 08/04/21 Shahida Sutton, DUANE EXECUTIVE PRODUCER PROMOS PCP - Assigned PCP 07/12/14 05/07/18 Paula Reza MD [address] [place] [address] PCP - General Internal Medicine 08/05/21 Shahida Sutton, BARKEEP EXECUTIVE PRODUCER PROMOS Assigned PCP 07/12/14 09/30/21 Carolynn Ramon, KASIE Personal Advocate & Liaison (PAL) 12/17/18 08/07/21 [place] [address] [address] [place] [address] Assigned Musculoskeletal Provider 12/26/19 08/21/20 Brady Lion MD Assigned Heart and Vascular Provider 12/26/19 08/14/20 Nima France PA-C [address] [place] [address] Assigned Surgical Provider 05/19/20 08/21/20 Camille Chandler PA-C [address] [place] [address] Assigned Neuroscience Provider 05/19/20 09/14/20 Anabela Barakat APRN EXECUTIVE PRODUCER PROMOS [address] [place] [address] Assigned Heart and Vascular Provider 08/15/20 08/05/21 Nima France PA-C [address] [place] [address] Assigned Musculoskeletal Provider 08/22/20 11/13/20 [place] [address] [facility] [place] [address] Assigned Musculoskeletal Provider 11/14/20 12/04/20 Fawad York MD [address] [place], [place] [address] Assigned Musculoskeletal Provider 12/05/20 02/05/21 Roopa Almonte MD [address] [facility] [address] [place], [place] [address] Endocrinology, Diabetes, and Metabolism 01/19/21 [place] [address] [facility] [address] [place] [address] Assigned Musculoskeletal Provider 02/06/21 09/16/21 Maryse Burton PA-C [address] [place] [address] Physician Aircraft Line Assembler Dermatology 04/14/21 Marquita Starkey MD [address] [facility] [address] [place], [place] [address] Internal Medicine 05/06/21 05/06/21 Roopa Almonte MD [address] [place] [address] Hospitalist Endocrinology, Diabetes, and Metabolism 05/30/21 Griffin Joshi MD [address] [facility] [address] [place] [address] Cardiovascular Disease 07/25/21 Rina Magallon, RN Lead Auto Electrician 07/29/21 07/11/22 Griffin Joshi MD [address] [place] [address] Assigned Heart and Vascular Provider 08/06/21 10/07/21 Roopa Almonte MD [address] [place] [address] 200 [place] [address] Assigned Endocrinology Provider 09/10/21 [place] [address] [facility] [place] [address] Assigned Musculoskeletal Provider 09/17/21 10/14/21 Lydia Bernstein PA-C [address] [place] [address] Assigned PCP 10/01/21 10/21/21 Rosa Maria Love CHW Community Health Worker 10/06/21 07/11/22 [place] [address] [facility] [address] [place] [address] Assigned Musculoskeletal Provider 10/15/21 04/26/23 Paula Reza MD [address] [facility] [address] [place], [place] [address] Assigned PCP 10/22/21 12/23/21 Keerthi Miner BARKEEP EXECUTIVE PRODUCER PROMOS [address] [place] [address] Assigned Heart and Vascular Provider 10/08/21 02/10/22 Shahida Sutton APRN EXECUTIVE PRODUCER PROMOS Assigned PCP 12/24/21 03/24/22 Porsha Michaels APRN EXECUTIVE PRODUCER PROMOS [address] [place] [address] Assigned Heart and Vascular Provider 02/11/22 05/12/22 Paula Reza MD [address] [facility] 200 [place] [address] Assigned PCP 03/25/22 04/07/22 Shahida Sutton BARKEEP EXECUTIVE PRODUCER PROMOS [address] [place] [address] Assigned PCP 04/08/22 06/30/22 Daylin Ludwig, MIKI [facility] [address] [place] [address] Cardiac Rehabilitation Therapist 05/16/23 Laurel Velasquez MD [address] [place] [address] Assigned Heart and Vascular Provider 05/13/22 06/30/22 Daylin Ludwig, MIKI [facility] [address] [place] [address] Cardiac Rehabilitation Therapist 06/08/22 06/09/23 Paula Reza MD [address] [place] [address] Assigned PCP 07/01/22 07/07/22 Porsha Michaels APRN EXECUTIVE PRODUCER PROMOS [address] [place] [address] Assigned Heart and Vascular Provider 07/01/22 07/07/22 Laurel Velasquez MD [address] [place] [address] Assigned Heart and Vascular Provider 07/08/22 08/04/22 Shahida Sutton APRN EXECUTIVE PRODUCER PROMOS Assigned PCP 07/08/22 09/08/22 Marilin Montaño EXECUTIVE PRODUCER PROMOS [address] [place] [address] Assigned Heart and Vascular Provider 08/05/22 Esha Dewitt MD [address] [place] [address] Gastroenterology 09/06/22 Heather Mosquera MD [address] [place] [address] Internal Medicine 09/06/22 Paula Reza MD [address] [place] [address] Assigned PCP 09/09/22 01/05/23 Esha Dewitt MD [address] [place] [address] Assigned Gastroenterology Provider 09/23/22 Valdo Escamilla PA-C [address] [facility] [address] [place] [address] Assigned Neuroscience Provider 09/30/22 Nohelia Abarca PA-C [address] [place] [address] Physician Aircraft Line Assembler Gastroenterology 10/03/22 Heather Mosquera MD [address] [facility] 150 [place] [address] Assigned PCP 01/06/23 Fawad York MD [address] [place] [address] Assigned Musculoskeletal Provider 04/27/23 06/25/23 documented as of this encounter
--- OUTSIDE RECORDS SUMMARY | 2023-10-02 15:49 | XMS_ITS | Encounter Summary ---
Author Organization [facility] Address [address] [place] [address] Care Team Providers Care Field Clinical Engineer Name Role Phone HermanShahida huerta APRN SIFTING OPERATOR Primary Care Provi ford Unavailable Herman, Shahida Cummings APRN SIFTING OPERATOR Unavailable Un available Herman, Shahida Cummings APRN SIFTING OPERATOR Unavailable Un available Carolynn Ramon RN Unavailable [phone] Augustine Callaway MD Unavailable Brady Lion MD Unavailable Un available Nima France-C Unavailable [phone] Camille Chandler PA-C Unavailable [phone] Anabela Barakat APRN SIFTING OPERATOR Unavailable Nima France PA-C Unavailable Basilio Morillo DO Unavailable Fawad York MD Unavailable [phone] Roopa Almonte MD Unavailable [phone] Augustine Callaway MD Unavailable Maryse Burton PA-C Unavailable [phone] Marquita Starkey MD Unavailable Roopa Almonte MD Unavailable [phone] Griffin Joshi MD Unavailable Rina Magallon RN Unavailable [phone] Paula Reza MD Primary Care Provider [phone] Griffin Joshi MD Unavailable Roopa Almonte MD Unavailable [phone] [facility] Basilio Naik Unavailable Lydia Bernstein PA-C Unavailable Rosa Maria Love Unavailable [phone] Augustine Callaway MD Unavailable Paula Reza MD Unavailable Keerthi Miner APRN SIFTING OPERATOR Unavailable [phone] Herman, Shahida Cummings APRN SIFTING OPERATOR Unavailable Un available Porsha Michaels APRN SIFTING OPERATOR Unavailable [phone] Paula Reza MD Unavailable Herman, Shahida Cummings APRN SIFTING OPERATOR Unavailable Un available Daylin Ludwig Unavailable [phone] Laurel Velasquez MD Unavailable [phone] Daylin Ludwig Unavailable [phone] Paula Reza MD Unavailable Porsha Michaels APRN SIFTING OPERATOR Unavailable [phone] Laurel Velasquez MD Unavailable [phone] Herman, Shahida Cummings APRN SIFTING OPERATOR Unavailable Un available Marilin Montaño SIFTING OPERATOR Unavailable [phone] Esha Dewitt MD Unavailable [phone] Heather Mosquera MD Unavailable [phone] Paula Reza MD Unavailable Esha Dewitt MD Unavailable [phone] Valdo Escamilla PA-C Unavailable [phone] Nohelia Abarca PA-C Unavailable [phone] Heather Mosquera MD Unavailable [phone] Fawad York MD Unavailable [phone] Encounter Details Date Type Department Care Team (Late st Contact Info) Description 09/23/2015 MyC Medical Advice [address] [address] Matilde Allen CMA Social History [...] Out COVID-19 02/15/2020 02/15/2020 02/16/2020 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 Rule Out COVID-19 01/05/2021 01/05/2021 01/06/2021 12:57 PM CDT ESBL 01/05/2021 01/05/2021 Rule Out COVID-19 06/30/2021 06/30/2021 07/01/2021 9:34 AM CDT Rule Out COVID-19 07/25/2021 07/25/2021 07/25/2021 8:02 PM CDT Assessment Noted Time PHQ-9 Depression Total Score: 8 10/01/19 16 7:13 AM CDT documented as of this encounter Care Teams Field Clinical Engineer Relationship Specialty Start Date End Date Shahida Sutton APRN SIFTING OPERATOR PCP - General Nurse Practitioner 08/17/14 08/04/21 Shahida Sutton, DUANE SIFTING OPERATOR PCP - Assigned PCP 07/12/14 05/07/18 Paula Reza MD [address] [place] [address] PCP - General Internal Medicine 08/05/21 Shahida Sutton, RESIDENTIAL GLAZIER SIFTING OPERATOR Assigned PCP 07/12/14 09/30/21 Carolynn Ramon, KASIE Personal Advocate & Liaison (PAL) 12/17/18 08/07/21 [place] [address] [address] [place] [address] Assigned Musculoskeletal Provider 12/26/19 08/21/20 Brady Lion MD Assigned Heart and Vascular Provider 12/26/19 08/14/20 Nima France PA-C [address] [place] [address] Assigned Surgical Provider 05/19/20 08/21/20 Camille Chandler PA-C [address] [place] [address] Assigned Neuroscience Provider 05/19/20 09/14/20 Anabela Barakat APRN SIFTING OPERATOR [address] [place] [address] Assigned Heart and Vascular Provider 08/15/20 08/05/21 Nima France PA-C [address] [place] [address] Assigned Musculoskeletal Provider 08/22/20 11/13/20 [place] [address] [facility] [place] [address] Assigned Musculoskeletal Provider 11/14/20 12/04/20 Fawad York MD [address] [place], [place] [address] Assigned Musculoskeletal Provider 12/05/20 02/05/21 Roopa Almonte MD [address] [facility] [address] [place], [place] [address] Endocrinology, Diabetes, and Metabolism 01/19/21 [place] [address] [facility] [address] [place] [address] Assigned Musculoskeletal Provider 02/06/21 09/16/21 Maryse Burton PA-C [address] [place] [address] Physician Sap Trainer Dermatology 04/14/21 Marquita Starkey MD [address] [facility] [address] [place], [place] [address] Internal Medicine 05/06/21 05/06/21 Roopa Almonte MD [address] [place] [address] Hospitalist Endocrinology, Diabetes, and Metabolism 05/30/21 Griffin Joshi MD [address] [facility] [address] [place] [address] Cardiovascular Disease 07/25/21 Rina Magallon, RN Lead Cvicu Nurse 07/29/21 07/11/22 Griffin Joshi MD [address] [place] [address] Assigned Heart and Vascular Provider 08/06/21 10/07/21 Roopa Almonte MD [address] [place] [address] [address] [place] [address] Assigned Endocrinology Provider 09/10/21 [place] [address] [facility] [address] Assigned Musculoskeletal Provider 09/17/21 10/14/21 Lydia Bernstein PA-C [address] [place] [address] Assigned PCP 10/01/21 10/21/21 Rosa Maria Love CHW Community Health Worker 10/06/21 07/11/22 [place] [address] [facility] [address] [place] [address] Assigned Musculoskeletal Provider 10/15/21 04/26/23 Paula Reza MD [address] [facility] [address] [place], [place] [address] Assigned PCP 10/22/21 12/23/21 Keerthi Miner RESIDENTIAL GLAZIER SIFTING OPERATOR [address] [place] [address] Assigned Heart and Vascular Provider 10/08/21 02/10/22 Shahida Sutton APRN SIFTING OPERATOR Assigned PCP 12/24/21 03/24/22 Porsha Michaels APRN SIFTING OPERATOR [address] [place] [address] Assigned Heart and Vascular Provider 02/11/22 05/12/22 Paula Reza MD [address] [facility] 200 [place] [address] Assigned PCP 03/25/22 04/07/22 Shahida Sutton RESIDENTIAL GLAZIER SIFTING OPERATOR [address] [place] [address] Assigned PCP 04/08/22 06/30/22 Daylin Ludwig, MIKI [facility] [address] [place] [address] Cardiac Rehabilitation Therapist 05/16/23 Laurel Velasquez MD [address] [place] [address] Assigned Heart and Vascular Provider 05/13/22 06/30/22 Daylin Ludwig, MIKI [facility] [address] [place] [address] Cardiac Rehabilitation Therapist 06/08/22 06/09/23 Paula Reza MD [address] [place] [address] Assigned PCP 07/01/22 07/07/22 Porsha Michaels APRN SIFTING OPERATOR [address] [place] [address] Assigned Heart and Vascular Provider 07/01/22 07/07/22 Laurel Velasquez MD [address] [place] [address] Assigned Heart and Vascular Provider 07/08/22 08/04/22 Shahida Sutton APRN SIFTING OPERATOR Assigned PCP 07/08/22 09/08/22 Marilin Montaño SIFTING OPERATOR [address] [place] [address] Assigned Heart and Vascular Provider 08/05/22 Esha Dewitt MD [address] [place] [address] Gastroenterology 09/06/22 Heather Mosquera MD [address] [place] [address] Internal Medicine 09/06/22 Paula Reza MD [address] [place] [address] Assigned PCP 09/09/22 01/05/23 Esha Dewitt MD [address] [place] [address] Assigned Gastroenterology Provider 09/23/22 aVldo Esacmilla PA-C [address] [facility] [address] [place] [address] Assigned Neuroscience Provider 09/30/22 Nohelia Abarca PA-C [address] [place] [address] Physician Sap Trainer Gastroenterology 10/03/22 Heather Mosquera MD [address] [facility] [address] [place] [address] Assigned PCP 01/06/23 Fawad York MD [address] [place] [address] Assigned Musculoskeletal Provider 04/27/23 06/25/23 documented as of this encounter
--- OUTSIDE RECORDS SUMMARY | 2023-10-02 15:49 | XMS_ITS | Encounter Summary ---
Author Organization [facility] Address [address] [place] [address] Care Team Providers Care Harness Preparer Name Role Phone HermanShahida huerta APRN METAL FABRICATOR Primary Care Provi ford Unavailable Herman, Shahida Cummings APRN METAL FABRICATOR Unavailable Un available Herman, Shahida Cummings APRN METAL FABRICATOR Unavailable Un available Carolynn Ramon RN Unavailable [phone] Augustine Callaway MD Unavailable Brady Lion MD Unavailable Un available Nima France-C Unavailable [phone] Camille Chandler PA-C Unavailable [phone] Anabela Barakat APRN METAL FABRICATOR Unavailable Nima France PA-C Unavailable Basilio Morillo DO Unavailable Fawad York MD Unavailable [phone] Roopa Almonte MD Unavailable [phone] Augustine Callaway MD Unavailable Maryse Burton PA-C Unavailable [phone] Marquita Starkey MD Unavailable Roopa Almonte MD Unavailable [phone] Griffin Joshi MD Unavailable Rina Magallon RN Unavailable [phone] Paula Reza MD Primary Care Provider [phone] Griffin Joshi MD Unavailable Roopa Almonte MD Unavailable [phone] [facility] Basilio Naik Unavailable Lydia Bernstein PA-C Unavailable Rosa Maria Love Unavailable [phone] Augustine Callaway MD Unavailable Paula Reza MD Unavailable Keerthi Miner APRN METAL FABRICATOR Unavailable [phone] Herman, Shahida Cummings APRN METAL FABRICATOR Unavailable Un available Porsha Michaels APRN METAL FABRICATOR Unavailable [phone] Paula Reza MD Unavailable Herman, Shahida Cummings APRN METAL FABRICATOR Unavailable Un available Daylin Ludwig Unavailable [phone] Laurel Velasquez MD Unavailable [phone] Daylin Ludwig Unavailable [phone] Paula Reza MD Unavailable Porsha Michaels APRN METAL FABRICATOR Unavailable [phone] Laurel Velasquez MD Unavailable [phone] Herman, Shahida Cummings APRN METAL FABRICATOR Unavailable Un available Marilin Montaño METAL FABRICATOR Unavailable [phone] Esha Dewitt MD Unavailable Heather Mosquera MD Unavailable [phone] Paula Reza MD Unavailable Esha Dewitt MD Unavailable [phone] Valdo Escamilla PA-C Unavailable Nohelia Abarca PA-C Unavailable [phone] Heather Mosquera MD Unavailable Fawad York MD Unavailable [phone] Reason for Visit * Reason Onset Date Comments Refill Request 02/18/2015 Encounter Details Date Type Department Care Team (Late st Contact Info) Description 02/18/2015 MyC Refill [facility] [place] [id number] [address] German Black MD [address] [place] [address] Refill Request Social History Tobacco [...] Out COVID-19 02/15/2020 02/15/2020 02/16/2020 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 Rule Out COVID-19 01/05/2021 01/05/2021 01/06/2021 12:57 PM CDT ESBL 01/05/2021 01/05/2021 Rule Out COVID-19 06/30/2021 06/30/2021 07/01/2021 9:34 AM CDT Rule Out COVID-19 07/25/2021 07/25/2021 07/25/2021 8:02 PM CDT Assessment Noted Time PHQ-9 Depression Total Score: 5 01/31/20 15 7:38 AM 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 documented as of this encounter Care Teams Harness Preparer Relationship Specialty Start Date End Date Shahida Sutton APRN METAL FABRICATOR PCP - General Nurse Practitioner 08/17/14 08/04/21 Shahida Sutton APRN METAL FABRICATOR PCP - Assigned PCP 07/12/14 05/07/18 Paula Reza MD [address] [facility] [address] [place] [address] PCP - General Internal Medicine 08/05/21 Shahida Sutton APRN METAL FABRICATOR Assigned PCP 07/12/14 09/30/21 Carolynn Ramon RN Personal Advocate & Liaison (PAL) 12/17/18 08/07/21 [place] [address] [address] [place] [address] Assigned Musculoskeletal Provider 12/26/19 08/21/20 Brady Lion MD Assigned Heart and Vascular Provider 12/26/19 08/14/20 Nima France PA-C [address] [place] [address] Assigned Surgical Provider 05/19/20 08/21/20 Camille Chandler PA-C [address] [place] [address] Assigned Neuroscience Provider 05/19/20 09/14/20 StoesAnabela win APRN CNP [address] [place] [address] Assigned Heart and Vascular Provider 08/15/20 08/05/21 Nima France PA-C [address] [facility] [address] [place] [address] Assigned Musculoskeletal Provider 08/22/20 11/13/20 [place] [address] [facility] [place] [address]89 Assigned Musculoskeletal Provider 11/14/20 12/04/20 Fawad York MD [address] [place], [place] [address] Assigned Musculoskeletal Provider 12/05/20 02/05/21 Roopa Almonte MD [address] [facility] [address] [place], [place] [address] Endocrinology, Diabetes, and Metabolism 01/19/21 [place] [address] [facility] [address] [place] [address] Assigned Musculoskeletal Provider 02/06/21 09/16/21 Maryse Burton PA-C [address] [place] [address] Physician Licensed Real Estate Broker Dermatology 04/14/21 Marquita Starkey MD [address] [facility] [address] [place], [place] [address] Internal Medicine 05/06/21 05/06/21 Roopa Almonte MD [address] [facility] [address] [place] [address] Hospitalist Endocrinology, Diabetes, and Metabolism 05/30/21 Griffin Joshi MD [address] [place] [address] Cardiovascular Disease 07/25/21 Rina Magallon, RN Lead Record Press Tender 07/29/21 07/11/22 Griffin Joshi MD [address] [facility] [address] [place] [address] Assigned Heart and Vascular Provider 08/06/21 10/07/21 Roopa Almonte MD [address] [facility] [address] [place] [address] Assigned Endocrinology Provider 09/10/21 [place] [address] [facility] [place] [address] Assigned Musculoskeletal Provider 09/17/21 10/14/21 Lydia Bernstein PA-C [address] [facility] [address] [place] [address] Assigned PCP 10/01/21 10/21/21 Rosa Maria oLve CHW Community Health Worker 10/06/21 07/11/22 [place] [address] [address] [facility] [address] [place] [address] Assigned Musculoskeletal Provider 10/15/21 04/26/23 Paula Reza MD [address] [place] [address] Assigned PCP 10/22/21 12/23/21 Keerthi Miner APRN METAL FABRICATOR [address] [place] [address] Assigned Heart and Vascular Provider 10/08/21 02/10/22 Shahida Sutton APRN METAL FABRICATOR Assigned PCP 12/24/21 03/24/22 Porsha Michaels APRN METAL FABRICATOR [address] [place] [address] Assigned Heart and Vascular Provider 02/11/22 05/12/22 Paula Reza MD [address] [place] [address] Assigned PCP 03/25/22 04/07/22 Shahida Sutton APRN METAL FABRICATOR [address] [place] [address] Assigned PCP 04/08/22 06/30/22 Daylin Ludwig, MIKI [facility] [address] [place] [address] Cardiac Rehabilitation Therapist 05/16/23 Laurel Velasquez MD [address] [place] [address] Assigned Heart and Vascular Provider 05/13/22 06/30/[address] [facility] [address] [place], [place] [address] Cardiac Rehabilitation Therapist 06/08/22 06/09/23 Paula Reza MD [address] [place] [address] Assigned PCP 07/01/22 07/07/22 Porsha Michaels APRN METAL FABRICATOR [address] [place] [address] Assigned Heart and Vascular Provider 07/01/22 07/07/22 Laurel Velasquez MD [address] [place] [address] Assigned Heart and Vascular Provider 07/08/22 08/04/22 Shahida Sutton APRN METAL FABRICATOR Assigned PCP 07/08/22 09/08/22 Marilin Montaño, METAL FABRICATOR [address] [place] [address] Assigned Heart and Vascular Provider 08/05/22 Esha Dewitt MD [address] [place] [address] [address] [place], [place] [address] Gastroenterology 09/06/22 Heather Mosquera MD [address] [place] [address] Internal Medicine 09/06/22 Paula Reza MD [address] [place] [address] Assigned PCP 09/09/22 01/05/23 Esha Dewitt MD [address] [facility] [address] [place] [address] Assigned Gastroenterology Provider 09/23/22 Valdo Escamilla PA-C [address] [facility] [address] [place] [address] Assigned Neuroscience Provider 09/30/22 Nohelia Abarca PA-C [address] [place] [address] Physician Licensed Real Estate Broker Gastroenterology 10/03/22 Heather Mosquera MD [address] [facility] 150 [place] [address] Assigned PCP 01/06/23 Fawad York MD [address] [place] [address] Assigned Musculoskeletal Provider 04/27/23 06/25/23 documented as of this encounter
--- OUTSIDE RECORDS SUMMARY | 2023-10-02 15:49 | XMS_ITS | Encounter Summary ---
Author Organization [place] Address [address] [place] [address] Care Team Providers Care Airfield Engineer Officer Name Role Phone HermanShahida huerta APRN PIE CRIMPING MACHINE OPERATOR Primary Care Provi ford Unavailable Herman, Shahida Cummings APRN PIE CRIMPING MACHINE OPERATOR Unavailable Un available Herman, Shahida Cummings APRN PIE CRIMPING MACHINE OPERATOR Unavailable Un available Carolynn Ramon RN Unavailable [phone] Augustine Callaway MD Unavailable Brady Lion MD Unavailable Un available Nima France-C Unavailable [phone] Camille Chandler PA-C Unavailable [phone] Anabela Barakat APRN PIE CRIMPING MACHINE OPERATOR Unavailable Nima France PA-C Unavailable Basilio Morillo DO Unavailable Fawad York MD Unavailable [phone] Roopa Almonte MD Unavailable [phone] Augustine Callaway MD Unavailable Maryse Burton PA-C Unavailable Marquita Starkey MD Unavailable Roopa Almonte MD Unavailable [phone] Griffin Joshi MD Unavailable Rina Magallon RN Unavailable [phone] Paula Reza MD Primary Care Provider [phone] Griffin Joshi MD Unavailable Roopa Almonte MD Unavailable [phone] [facility] Basilio Naik Unavailable Lydia Bernstein PA-C Unavailable Rosa Maria Love Unavailable [phone] Augustine Callaway MD Unavailable Paula Reza MD Unavailable Keerthi Miner APRN PIE CRIMPING MACHINE OPERATOR Unavailable [phone] Herman, Shahida Cummings APRN PIE CRIMPING MACHINE OPERATOR Unavailable Un available Porsha Michaels APRN PIE CRIMPING MACHINE OPERATOR Unavailable [phone] Paula Reza MD Unavailable Herman, Shahida Cummings APRN PIE CRIMPING MACHINE OPERATOR Unavailable Un available Daylin Ludwig Unavailable [phone] Laurel Velasquez MD Unavailable [phone] Daylin Ludwig Unavailable [phone] Paula Reza MD Unavailable Porsha Michaels APRN PIE CRIMPING MACHINE OPERATOR Unavailable [phone] Laurel Velasquez MD Unavailable [phone] Herman, Shahida Cummings APRN PIE CRIMPING MACHINE OPERATOR Unavailable Un available Marilin Montaño PIE CRIMPING MACHINE OPERATOR Unavailable [phone] Esha Dewitt MD Unavailable [phone] Heather Mosquera MD Unavailable [phone] Paula Reza MD Unavailable Esha Dewitt MD Unavailable [phone] Valdo Escamilla PA-C Unavailable [phone] Nohelia Abarca PA-C Unavailable [phone] Heather Mosquera MD Unavailable Fawad York MD Unavailable [phone] Reason for Visit * Reason Comments Medication Refill GABAPENTIN 300MG MIGUEL CORBIN Encounter Details Date Type Department Care Team (Late st Contact Info) Description 08/21/[address] [address] Shahida Sutton APRN CNP Medication [...] further evaluation. RX monitoring program ([place]) reviewed: LEAD BLENDER reviewed- no concerns Last Fills: Gabapentin- 07/11/2016, #270; 05/25/2016, #270 [place]- 08/10/2016, #30; 07/11/2016, #120 Adderall- 07/29/2016, #60 06/30/2016, #60 Ambien- 07/28/2016,#30 06/29/2016, #30 [place] profile: [email or web address] Shanon Holliday RN, BSN, PHN [facility] RN * Telephone Encounter - Pranav Maysen - 08/21/2016 1:28 PM CDT GABAPENTIN 300MG CAPSULES Last Written Prescription Date: 05-25-2016 Last Fill Quantity: 07-11-2016, #270 refills: 1 Last Office Visit with [facility] or [facility] prescribing provider: 06-12-2016 Shahida Sutton. Next 5 appointments (look out 90 days) Sep 19, 2016 8:00 AM CDT Return Visit with Jing Roper APRN [facility] ([facility] [address] [place] [id number] Sep 20, 2016 10:00 AM CDT Nurse Only with [facility] 5 [facility] ([facility]) [address] [place] [phone] documented in this encounter Plan of Treatment Not on file documented as of this encounter Visit Diagnoses Diagnosis Other chronic pain documented in this encounter Additional Health Concerns Infection Onset Date Last Indicated Resolved Time Rule Out COVID-19 02/15/2020 02/15/2020 02/16/2020 2:[address] ADVOCATE Rule Out COVID-19 01/05/2021 01/05/2021 01/06/2021 12:57 PM CDT ESBL 01/05/2021 01/05/2021 Rule Out COVID-19 06/30/2021 06/30/2021 07/01/2021 9:34 AM CDT Rule Out COVID-19 07/25/2021 07/25/2021 07/25/2021 8:02 PM CDT Assessment Noted Time PHQ-9 Depression Total Score: 5 05/27/19 17 7:07 AM CDT documented as of this encounter Care Teams Airfield Engineer Officer Relationship Specialty Start Date End Date Shahida Sutton APRN PIE CRIMPING MACHINE OPERATOR PCP - General Nurse Practitioner 08/17/14 08/04/21 Shahida Sutton APRN PIE CRIMPING MACHINE OPERATOR PCP - Assigned PCP 07/12/14 05/07/18 Paula Reza MD [address] [facility] [address] [place] [address] PCP - General Internal Medicine 08/05/21 Shahida Sutton APRN PIE CRIMPING MACHINE OPERATOR Assigned PCP 07/12/14 09/30/21 Carolynn Ramon RN Personal Advocate & Liaison (PAL) 12/17/18 08/07/21 [place] [address] [place] [address] Assigned Musculoskeletal Provider 12/26/19 08/21/20 Brady Lion MD Assigned Heart and Vascular Provider 12/26/19 08/14/20 Nima France PA-C [address] [facility] [address] [place] [address] Assigned Surgical Provider 05/19/20 08/21/20 Camille Chandler PA-C [address] [facility] [address] [place] [address] Assigned Neuroscience Provider 05/19/20 09/14/20 Anabela Barakat APRN PIE CRIMPING MACHINE OPERATOR [address] [place] [address] Assigned Heart and Vascular Provider 08/15/20 08/05/21 Nima France PA-C [address] [facility] [address] [place], [place] [address] Assigned Musculoskeletal Provider 08/22/20 11/13/20 [place] [address] [facility] [place], [place] [address] Assigned Musculoskeletal Provider 11/14/20 12/04/20 Fawad York MD [address] [place], [place] [address] Assigned Musculoskeletal Provider 12/05/20 02/05/21 Roopa Almonte MD [address] [facility] [address] [place] [address] Endocrinology, Diabetes, and Metabolism 01/19/21 [place] [address] [facility] [address] [place], [place] [address] Assigned Musculoskeletal Provider 02/06/21 09/16/21 Maryse Burton PA-C [address] [place] [address] Physician Vegetable Cutter Dermatology 04/14/21 Marquita Starkey MD [address] [facility] [address] [place], [place] [address] Internal Medicine 05/06/21 05/06/21 Roopa Almonte MD [address] [facility] [address] [place], [place] [address] Hospitalist Endocrinology, Diabetes, and Metabolism 05/30/21 Griffin Joshi MD [address] [facility] [address] [place] [address] Cardiovascular Disease 07/25/21 Rina Magallon, RN Lead Shade Bander 07/29/21 07/11/22 Griffin Joshi MD [address] [place] [address] Assigned Heart and Vascular Provider 08/06/21 10/07/21 Roopa Almonte MD [address] [place] [address] 200 [place] [address] Assigned Endocrinology Provider 09/10/21 [place] [address] [place] [place] [address] Assigned Musculoskeletal Provider 09/17/21 10/14/21 Lydia Bernstein PA-C [address] [facility] [facility] [address] [place] [address] Assigned PCP 10/01/21 10/21/21 Rosa Maria Love CHW Community Health Worker 10/06/21 07/11/22 [place] [address] [address] [facility] [address] [place] [address] Assigned Musculoskeletal Provider 10/15/21 04/26/23 Paula Reza MD [address] [place] [address] Assigned PCP 10/22/21 12/23/21 Keerthi Miner APRN PIE CRIMPING MACHINE OPERATOR [address] [place] [address] Assigned Heart and Vascular Provider 10/08/21 02/10/22 Shahida Sutton APRN PIE CRIMPING MACHINE OPERATOR Assigned PCP 12/24/21 03/24/22 Porsha Michaels APRN PIE CRIMPING MACHINE OPERATOR [address] [place] [place] [address] Assigned Heart and Vascular Provider 02/11/22 05/12/22 Paula Reza MD [address] [place] [address] Assigned PCP 03/25/22 04/07/22 Shahida Sutton APRN PIE CRIMPING MACHINE OPERATOR [address] [place] [address] Assigned PCP 04/08/22 06/30/22 Daylin Ludwig, EP [facility] [address] [address] Cardiac Rehabilitation Therapist 05/16/23 Laurel Velasquez MD [address] [place] [address] Assigned Heart and Vascular Provider 05/13/22 06/30/22 Daylin Ludwig, EP [facility] [address] [place] [address] Cardiac Rehabilitation Therapist 06/08/22 06/09/23 Paula Reza MD [address] [place], [place] [address] Assigned PCP 07/01/22 07/07/22 Porsha Michaels APRN PIE CRIMPING MACHINE OPERATOR [address] [place] [address] Assigned Heart and Vascular Provider 07/01/22 07/07/22 Laurel Velasquez MD [address] [place] [address] Assigned Heart and Vascular Provider 07/08/22 08/04/22 Shahida Sutton APRN PIE CRIMPING MACHINE OPERATOR Assigned PCP 07/08/22 09/08/22 Marilin Montaño, PIE CRIMPING MACHINE OPERATOR [address] [place] [address] Assigned Heart and Vascular Provider 08/05/22 Esha Dewitt MD [address] [place] [address] 36 [place], [place] [address] Gastroenterology 09/06/22 Heather Mosquera MD [address] [place] [address] Internal Medicine 09/06/22 Paula Reza MD [address] [place] [address] Assigned PCP 09/09/22 01/05/23 Esha Dewitt MD [address] [facility] 36 [place] [address] Assigned Gastroenterology Provider 09/23/22 Valdo Escamilla PA-C [address] [facility] [address] [place] [address] Assigned Neuroscience Provider 09/30/22 Nohelia Abarca PA-C [address] [place] [address] Physician Vegetable Cutter Gastroenterology 10/03/22 Heather Mosquera MD [address] [place] [address] Assigned PCP 01/06/23 Fawad York MD [address] [place] [address] Assigned Musculoskeletal Provider 04/27/23 06/25/23 documented as of this encounter
--- OUTSIDE RECORDS SUMMARY | 2023-10-02 15:50 | XMS_ITS | Encounter Summary ---
Author Organization [place] Address [address] [place] [address] Care Team Providers Care Motor Expert Name Role Phone Mingo Aldana MD Primary Car e Provider Herman, Shahida Cummings APRN COMMUNITY NUTRITION EDUCATOR Primary Care Provi ford Unavailable Herman, Shahida Cummings APRN COMMUNITY NUTRITION EDUCATOR Unavailable Un available Herman, Shahida Cummings APRN COMMUNITY NUTRITION EDUCATOR Unavailable Un available Carolynn Ramon RN Unavailable [phone] Augustine Callaway MD Unavailable Brady Lion MD Unavailable Un available Nima France-C Unavailable [phone] Camille Chandler PA-C Unavailable [phone] Anabela Barakat APRN COMMUNITY NUTRITION EDUCATOR Unavailable Nima France-C Unavailable [phone] Basilio Morillo DO Unavailable Fawad York MD Unavailable [phone] Roopa Almonte MD Unavailable [phone] Augustine Callaway MD Unavailable Maryse Burton PA-C Unavailable Marquita Starkey MD Unavailable [phone] Roopa Almonte MD Unavailable [phone] Griffin Joshi MD Unavailable Rina Magallon RN Unavailable [phone] Paula Reza MD Primary Care Provider [phone] Griffin Joshi MD Unavailable Roopa Almonte MD Unavailable [phone] [facility] hospital[facility]ilio win DO Unavailable Lydia Bernstein PA-C Unavailable Rosa Maria Love Unavailable [phone] Augustine Callaway MD Unavailable Paula Reza MD Unavailable Keerthi Miner APRN COMMUNITY NUTRITION EDUCATOR Unavailable Herman, Shahida Cummings APRN COMMUNITY NUTRITION EDUCATOR Unavailable Un available Porsha Michaels APRN COMMUNITY NUTRITION EDUCATOR Unavailable [phone] Paula Reza MD Unavailable Herman, Shahida Cummings APRN COMMUNITY NUTRITION EDUCATOR Unavailable Un available Daylin Ludwig Unavailable [phone] Laurel Velasquez MD Unavailable [phone] Daylin Ludwig Unavailable [phone] Paula Reza MD Unavailable Porsha Michaels APRN COMMUNITY NUTRITION EDUCATOR Unavailable [phone] Laurel Velasquez MD Unavailable [phone] Herman, Shahida Cummings APRN COMMUNITY NUTRITION EDUCATOR Unavailable Un available Marilin Montaño COMMUNITY NUTRITION EDUCATOR Unavailable [phone] Esha Dewitt MD Unavailable [phone] Heather Mosquera MD Unavailable [phone] Paula Reza MD Unavailable Esha Dewitt MD Unavailable [phone] Valdo Escamilla Deo PA-C Unavailable Nohelia Abarca PA-C Unavailable [phone] Heather Mosquera MD Unavailable [phone] Fawad York MD Unavailable [phone] Reason for Visit * Reason Onset Date Comments Refill Request 07/05/2012 Toprol XL Encounter Details Date Type Department Care Team (Late st Contact Info) Description 07/05/2012 MyC Refill M [address], [address] [place] [address] Mingo Aldana MD [facility] [address] [place] [address] Refill Request (Toprol XL) Social History Tobacco [...] King - 07/05/2012 10:53 AM CDTMessage from [facility]: Original authorizing provider: Mingo Aldana MD, MD Mauro Terrell would like a refill of the following medications: metoprolol (TOPROL-XL) 50 MG 24 hr tablet [Mingo Aldana MD, ] Preferred pharmacy: [facility] [place] [address] [address] Comment: I requested this through [...] COVID-19 02/15/2020 02/15/2020 02/16/2020 2:32 PM FIELD SALES ENGINEER Rule Out COVID-19 01/05/2021 01/05/2021 01/06/2021 12:57 PM CDT ESBL 01/05/2021 01/05/2021 Rule Out COVID-19 06/30/2021 06/30/2021 07/01/2021 9:34 AM CDT Rule Out COVID-19 07/25/2021 07/25/2021 07/25/2021 8:02 PM CDT documented as of this encounter Care Teams Motor Expert Relationship Specialty Start Date End Date Mingo Aldana MD PCP - General Family Practice 07/22/09 07/12/14 Shahida Sutton APRN COMMUNITY NUTRITION EDUCATOR PCP - General Nurse Practitioner 08/17/14 08/04/21 Shahida Sutton APRN COMMUNITY NUTRITION EDUCATOR PCP - Assigned PCP 07/12/14 05/07/18 Paula Reza MD [address] [facility] [address] [place] [address] PCP - General Internal Medicine 08/05/21 Shahida Sutton APRN COMMUNITY NUTRITION EDUCATOR Assigned PCP 07/12/14 09/30/21 Carolynn Ramon RN Personal Advocate & Liaison (PAL) 12/17/18 08/07/21 [place] [address] [place], [place] [address] Assigned Musculoskeletal Provider 12/26/19 08/21/20 Brady Lion MD Assigned Heart and Vascular Provider 12/26/19 08/14/20 Nima France PA-C [address] [place] [address] Assigned Surgical Provider 05/19/20 08/21/20 Camille Chandler PA-C [address] [place] [address] Assigned Neuroscience Provider 05/19/20 09/14/20 Anabela Barakat APRN COMMUNITY NUTRITION EDUCATOR [address] [place] [address] Assigned Heart and Vascular Provider 08/15/20 08/05/21 Nima France PA-C [address] [facility] 450 [place] [address] Assigned Musculoskeletal Provider 08/22/20 11/13/20 [place] [address] [facility] [place], [place] [address] Assigned Musculoskeletal Provider 11/14/20 12/04/20 Fawad York MD [address] [place], [place] [address] Assigned Musculoskeletal Provider 12/05/20 02/05/21 Roopa Almonte MD [address] [employer] [facility] [address] [place] [address] Endocrinology, Diabetes, and Metabolism 01/19/21 [place] [address] [facility] [address] [place] [address] Assigned Musculoskeletal Provider 02/06/21 09/16/21 Maryse Burton PA-C [address] [place] [address] Physician Public Works Technician Dermatology 04/14/21 Marquita Starkey MD [address] [facility] [address] [place] [address] Internal Medicine 05/06/21 05/06/21 Roopa Almonte MD [address] [place] [address] Hospitalist Endocrinology, Diabetes, and Metabolism 05/30/21 Griffin Joshi MD [address] [facility] [address] [place] [address] Cardiovascular Disease 07/25/21 Rina Magallon, RN Lead Milk Tester 07/29/21 07/11/22 Griffin Joshi MD [address] [facility] [address] [place] [address] Assigned Heart and Vascular Provider 08/06/21 10/07/21 Roopa Almonte MD [address] [address] [place], [place] [address] Assigned Endocrinology Provider 09/10/21 [place] [address] [facility] [place] [address] Assigned Musculoskeletal Provider 09/17/21 10/14/21 Lydia Bernstein PA-C [address] [facility] [address] [place] [address] Assigned PCP 10/01/21 10/21/21 Rosa Maria Love CHW Community Health Worker 10/06/21 [place] [address] [facility] [address] [place] [address] Assigned Musculoskeletal Provider 10/15/21 04/26/23 Paula Reza MD [address] [place] [address] Assigned PCP 10/22/21 12/23/21 Keerthi Miner APRN COMMUNITY NUTRITION EDUCATOR [address] [place] [address] Assigned Heart and Vascular Provider 10/08/21 02/10/22 Shahida Sutton APRN COMMUNITY NUTRITION EDUCATOR Assigned PCP 12/24/21 03/24/22 Porsha Michaels APRN COMMUNITY NUTRITION EDUCATOR [address] [place] [address] Assigned Heart and Vascular Provider 02/11/22 05/12/22 Paula Reza MD [address] [place] [address] Assigned PCP 03/25/22 04/07/22 Shahida Sutton APRN COMMUNITY NUTRITION EDUCATOR [address] [place] [address] Assigned PCP 04/08/22 06/30/22 Daylin Ludwig EP [facility] [address] [place] [address] Cardiac Rehabilitation Therapist 05/16/23 Laurel Velasquez MD [address] [place] [address] Assigned Heart and Vascular Provider 05/13/22 06/30/22 Daylin Ludwig EP [facility] [address] [place] [address] Cardiac Rehabilitation Therapist 06/08/22 06/09/23 Paula Reza MD [address] [place], [place] [address] Assigned PCP 07/01/22 07/07/22 Porsha Michaels APRN COMMUNITY NUTRITION EDUCATOR [address] [place] [address] Assigned Heart and Vascular Provider 07/01/22 07/07/22 Laurel Velasquez MD [address] [place] [address] Assigned Heart and Vascular Provider 07/08/22 08/04/22 Shahida Sutton, COFFEE ROASTER COMMUNITY NUTRITION EDUCATOR Assigned PCP 07/08/22 09/08/22 Marilin Montaño, COMMUNITY NUTRITION EDUCATOR [address] [place] [address] Assigned Heart and Vascular Provider 08/05/22 Esha Dewitt MD [address] [place] [address] 36 [place], [place] [address] Gastroenterology 09/06/22 Heather Mosquera MD [address] [place] [address] Internal Medicine 09/06/22 Paula Reza MD [address] [place] [address] Assigned PCP 09/09/22 01/05/23 Esha Dewitt MD 420 [facility] 36 [place], [place] [address] Assigned Gastroenterology Provider 09/23/22 Valdo Escamilla PA-C [address] [facility] 103 [place], [place] [address] Assigned Neuroscience Provider 09/30/22 Nohelia Abarca PA-C [address] [place], [place] [address] Physician Public Works Technician Gastroenterology 10/03/22 Heather Mosquera MD [address] [facility] 150 [place], [place] [address] Assigned PCP 01/06/23 Fawad York MD [address] [place], [place] [address] Assigned Musculoskeletal Provider 04/27/23 06/25/23 documented as of this encounter
--- OUTSIDE RECORDS SUMMARY | 2023-10-02 15:50 | XMS_ITS | Encounter Summary ---
Author Organization [place] Address [address] [place] [address] Care Team Providers Care Tin Plater Name Role Phone Mingo Aldana MD Primary Car e Provider Herman, Shahida Cummings APRN LEGAL CONSULTANT Primary Care Provi ford Unavailable Herman, Shahida Cummings APRN LEGAL CONSULTANT Unavailable Un available Herman, Shahida Cummings APRN LEGAL CONSULTANT Unavailable Un available Carolynn Ramon RN Unavailable [phone] Augustine Callaway MD Unavailable Brady Lion MD Unavailable Un available Nima France-C Unavailable [phone] Camille Chandler PA-C Unavailable [phone] Anabela Barakat APRN LEGAL CONSULTANT Unavailable Nima France-C Unavailable [phone] Basilio Morillo DO Unavailable [phone] Fawad York MD Unavailable [phone] Roopa Almonte MD Unavailable [phone] Augustine Callaway MD Unavailable Maryse Burton PA-C Unavailable Marquita Starkey MD Unavailable [phone] Roopa Almonte MD Unavailable [phone] Griffin Joshi MD Unavailable Rina Maagllon RN Unavailable [phone] Paula Reza MD Primary Care Provider [phone] Griffin Joshi MD Unavailable Roopa Almonte MD Unavailable [phone] [facility] DO Unavailable Lydia Bernstein PA-C Unavailable Rosa Maria Love Unavailable [phone] Augustine Callaway MD Unavailable Paula Reza MD Unavailable Keerthi Miner APRN LEGAL CONSULTANT Unavailable Herman, Shahida Cummings APRN LEGAL CONSULTANT Unavailable Un available Porsha Michaels APRN LEGAL CONSULTANT Unavailable [phone] Paula Reza MD Unavailable Herman, Shahida Cummings APRN LEGAL CONSULTANT Unavailable Un available Daylin Ludwig Unavailable [phone] Laurel Velasquez MD Unavailable [phone] Daylin Ludwig Unavailable [phone] Paula Reza MD Unavailable Porsha Michaels APRN LEGAL CONSULTANT Unavailable [phone] Laurel Velasquez MD Unavailable [phone] Herman, Shahida Cummings APRN LEGAL CONSULTANT Unavailable Un available Marilin Montaño LEGAL CONSULTANT Unavailable [phone] Esha Dewitt MD Unavailable [phone] Heather Mosquera MD Unavailable Paula Reza MD Unavailable Esha Dewitt MD Unavailable [phone] Valdo Escamilla PA-C Unavailable [phone] Nohelia Abarca PA-C Unavailable [phone] Heather Mosquera MD Unavailable Fawad York MD Unavailable [phone] Encounter Details Date Type Department Care Team (Late st Contact Info) Description 12/05/[address] [address] [place] Social History Tobacco [...] Out COVID-19 02/15/2020 02/15/2020 02/16/2020 2:32 PM 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 Rule Out COVID-19 01/05/2021 01/05/2021 01/06/2021 12:57 PM CDT ESBL 01/05/2021 01/05/2021 Rule Out COVID-19 06/30/2021 06/30/2021 07/01/2021 9:34 AM CDT Rule Out COVID-19 07/25/2021 07/25/2021 07/25/2021 8:02 PM CDT documented as of this encounter Care Teams Tin Plater Relationship Specialty Start Date End Date Mingo Aldana MD PCP - General Family Practice 07/22/09 07/12/14 Shahida Sutton APRN LEGAL CONSULTANT PCP - General Nurse Practitioner 08/17/14 08/04/21 Shahida Sutton APRN LEGAL CONSULTANT PCP - Assigned PCP 07/12/14 05/07/18 Paula Reza MD [address] [facility] 200 [place] [address] PCP - General Internal Medicine 08/05/21 Shahida Sutton APRN LEGAL CONSULTANT Assigned PCP 07/12/14 09/30/21 Carolynn Ramon RN Personal Advocate & Liaison (PAL) 12/17/18 08/07/21 [place] [address] [place], [place] [address] Assigned Musculoskeletal Provider 12/26/19 08/21/20 Brady Lion MD Assigned Heart and Vascular Provider 12/26/19 08/14/20 Nima France PA-C [address] [place] [address] Assigned Surgical Provider 05/19/20 08/21/20 Camille Chandler PA-C [address] [place] [address] Assigned Neuroscience Provider 05/19/20 09/14/20 Anabela Barakat APRN LEGAL CONSULTANT [address] [place] [address] Assigned Heart and Vascular Provider 08/15/20 08/05/21 Nima France PA-C [address] [facility] [address] [place] [address] Assigned Musculoskeletal Provider 08/22/20 11/13/20 [place] [address] [facility] [place], [place] [address] Assigned Musculoskeletal Provider 11/14/20 12/04/20 Fawad York MD [address] [place], [place] [address] Assigned Musculoskeletal Provider 12/05/20 02/05/21 Roopa Almonte MD [address] [facility] [address] [place] [address] Endocrinology, Diabetes, and Metabolism 01/19/21 [place] [address] [facility] [address] [place] [address] Assigned Musculoskeletal Provider 02/06/21 09/16/21 Maryse Burton PA-C [address] [place] [address] Physician Aquatics Instructor Dermatology 04/14/21 Marquita Starkey MD [address] [facility] [address] [place] [address] Internal Medicine 05/06/21 05/06/21 Roopa Almonte MD [address] [place] [address] Hospitalist Endocrinology, Diabetes, and Metabolism 05/30/21 Griffin Joshi MD [address] [place] [address] Cardiovascular Disease 07/25/21 Rina Magallon, RN Lead Outpatient Clerk 07/29/21 07/11/22 Griffin Joshi MD [address] [place] [address] Assigned Heart and Vascular Provider 08/06/21 10/07/21 Roopa Almonte MD [address] [facility] 200 [place] [address] Assigned Endocrinology Provider 09/10/21 [place] [address] [facility] [place] [address] Assigned Musculoskeletal Provider 09/17/21 10/14/21 Lydia Bernstein PA-C [address] [facility] [address] [place] [address] Assigned PCP 10/01/21 10/21/21 Rosa Maria Love CHW Community Health Worker 10/06/21 [place] [address] [place] [address] Assigned Musculoskeletal Provider 10/15/21 04/26/23 Paula Reza MD [address] [place] [address] Assigned PCP 10/22/21 12/23/21 Keerthi Minre APRN LEGAL CONSULTANT [address] [place] [address] Assigned Heart and Vascular Provider 10/08/21 02/10/22 Shahida Sutton APRN LEGAL CONSULTANT Assigned PCP 12/24/21 03/24/22 Porsha Michaels APRN LEGAL CONSULTANT [address] [place] [address] Assigned Heart and Vascular Provider 02/11/22 05/12/22 Paula Reza MD [address] [place] [address] Assigned PCP 03/25/22 04/07/22 Shahida Sutton APRN LEGAL CONSULTANT [address] [place] [address] Assigned PCP 04/08/22 06/30/22 Daylin Ludwig, [facility] [address] [place] [address] Cardiac Rehabilitation Therapist 05/16/23 Laurel Velasquez MD [address] [address] Assigned Heart and Vascular Provider 05/13/22 06/30/22 Daylin Ludwig [facility] [address] [place], [place] [address] Cardiac Rehabilitation Therapist 06/08/22 06/09/23 Paula Reza MD [address] [place], [place] [address] Assigned PCP 07/01/22 07/07/22 Porsha Michaels APRN LEGAL CONSULTANT [address] [place] [address] Assigned Heart and Vascular Provider 07/01/22 07/07/22 Laurel Velasquez MD [address] [place] [address] Assigned Heart and Vascular Provider 07/08/22 08/04/22 Shahida Sutton, DUANE LEGAL CONSULTANT Assigned PCP 07/08/22 09/08/22 Marilin Montaño, LEGAL CONSULTANT [address] [place] [address] Assigned Heart and Vascular Provider 08/05/22 Esha Dewitt MD [address] [place] [id number] Gastroenterology 09/06/22 Heather Mosquera MD [address] [place] [address] Internal Medicine 09/06/22 Paula Reza MD [address] [place] [address] Assigned PCP 09/09/22 01/05/23 Esha Dewitt MD [address] [facility] 36 [place] [address] Assigned Gastroenterology Provider 09/23/22 Valdo Escamilla PA-C [address] [facility] [address] [place], [place] [address] Assigned Neuroscience Provider 09/30/22 Nohelia Abarca PA-C [address] [place] [address] Physician Aquatics Instructor Gastroenterology 10/03/22 Heather Mosquera MD [address] [facility] [address] [place] [address] Assigned PCP 01/06/23 Fawad York MD [address] [place], [place] [address] Assigned Musculoskeletal Provider 04/27/23 06/25/23 documented as of this encounter
--- OUTSIDE RECORDS SUMMARY | 2023-10-02 15:50 | XMS_ITS | Encounter Summary ---
Author Organization [place] Address [address] [place] [address] Care Team Providers Care Apparel Cutter Name Role Phone Mingo Aldana MD Primary Car e Provider Herman, Shahida Cummings APRN INTERDISCIPLINARY PROFESSOR Primary Care Provi ford Unavailable Herman, Shahida Cummings APRN INTERDISCIPLINARY PROFESSOR Unavailable Un available Herman, Shahida Cummings APRN INTERDISCIPLINARY PROFESSOR Unavailable Un available Carolynn Ramon RN Unavailable [phone] Augustine Callaway MD Unavailable Brady Lion MD Unavailable Un available Nima France-C Unavailable [phone] Camille Chandler PA-C Unavailable [phone] Anabela Barakat APRN INTERDISCIPLINARY PROFESSOR Unavailable Nima France-C Unavailable [phone] Basilio Morillo DO Unavailable Fawad York MD Unavailable [phone] Roopa Almonte MD Unavailable [phone] Augustine Callaway MD Unavailable Maryse Burton PA-C Unavailable Marquita Starkey MD Unavailable [phone] Roopa Almonte MD Unavailable [phone] Griffin Joshi MD Unavailable Rina Magallon RN Unavailable [phone] Paula Reza MD Primary Care Provider [phone] Griffin Joshi MD Unavailable Roopa Almonte MD Unavailable [phone] [facility] win DO Unavailable Lydia Bernstein PA-C Unavailable Rosa Maria Love Unavailable [phone] Augustine Callaway MD Unavailable Paula Reza MD Unavailable Keerthi Miner APRN INTERDISCIPLINARY PROFESSOR Unavailable Herman, Shahida Cummings APRN INTERDISCIPLINARY PROFESSOR Unavailable Un available Porsha Michaels APRN INTERDISCIPLINARY PROFESSOR Unavailable [phone] Paula Reza MD Unavailable Herman, Shahida Cummings APRN INTERDISCIPLINARY PROFESSOR Unavailable Un available Daylin Ludwig Unavailable [phone] Laurel Velasquez MD Unavailable [phone] Daylin Ludwig Unavailable [phone] Paula Reza MD Unavailable Porsha Michaels APRN INTERDISCIPLINARY PROFESSOR Unavailable [phone] Laurel Velasquez MD Unavailable [phone] Herman, Shahida Cummings APRN INTERDISCIPLINARY PROFESSOR Unavailable Un available Marilin Montaño INTERDISCIPLINARY PROFESSOR Unavailable [phone] Esha Dewitt MD Unavailable [phone] Heather Mosquera MD Unavailable [phone] Paula Reza MD Unavailable Esha Dewitt MD Unavailable [phone] Valdo Escamilla Deo PA-C Unavailable [phone] Nohelia Abarca PA-C Unavailable [phone] Heather Mosquera MD Unavailable Fawad York MD Unavailable [phone] Reason for Visit * Reason Onset Date Comments Patient Inquiry 07/16/2012 Encounter Details Date Type Department Care Team (Late st Contact Info) Description 07/16/2012 [facility] [address] [address] Mingo Aldana MD [facility] [address] [place] [address] Patient Inquiry Social History Tobacco [...] Rule Out COVID-19 02/15/2020 02/15/202002/16/2020 2:32 PM 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 Rule Out COVID-19 01/05/2021 01/05/2021 01/06/2021 12:57 PM CDT ESBL 01/05/2021 01/05/2021 Rule Out COVID-19 06/30/2021 06/30/2021 07/01/2021 9:34 AM CDT Rule Out COVID-19 07/25/2021 07/25/2021 07/25/2021 8:02 PM CDT documented as of this encounter Care Teams Apparel Cutter Relationship Specialty Start Date End Date Mingo Aldana MD PCP - General Family Practice 07/22/09 07/12/14 Shahida Sutton APRN INTERDISCIPLINARY PROFESSOR PCP - General Nurse Practitioner 08/17/14 08/04/21 Shahida Sutton APRN INTERDISCIPLINARY PROFESSOR PCP - Assigned PCP 07/12/14 05/07/18 Paula Reza MD [address] [facility] 200 [place] [address] PCP - General Internal Medicine 08/05/21 Shahida Sutton APRN INTERDISCIPLINARY PROFESSOR Assigned PCP 07/12/14 09/30/21 Carolynn Ramon RN Personal Advocate & Liaison (PAL) 12/17/18 08/07/21 [place] [address] [place], [place] [address] Assigned Musculoskeletal Provider 12/26/19 08/21/20 Brady Lion MD Assigned Heart and Vascular Provider 12/26/19 08/14/20 Nima France PA-C [address] [facility] [address] [place] [address] Assigned Surgical Provider 05/19/20 08/21/20 Camille Chandler PA-C [address] [facility] [address] [place] [address] Assigned Neuroscience Provider 05/19/20 09/14/20 Anabela Barakat APRN INTERDISCIPLINARY PROFESSOR [address] [place] [address] Assigned Heart and Vascular Provider 08/15/20 08/05/21 Nima France PA-C [address] [facility] [address] [place] [address] Assigned Musculoskeletal Provider 08/22/20 11/13/20 [place] [address] [place] [address] Assigned Musculoskeletal Provider 11/14/20 12/04/20 Fawad York MD [address] [place], [place] [address] Assigned Musculoskeletal Provider 12/05/20 02/05/21 Roopa Almonte MD [address] [place] [address] Endocrinology, Diabetes, and Metabolism 01/19/21 [place] [address] [address] [facility] [address] [place] [address] Assigned Musculoskeletal Provider 02/06/21 09/16/21 Maryse Burton PA-C [address] [place] [address] Physician Director Funds Development Dermatology 04/14/21 Marquita Starkey MD [address] [facility] 200 [place], [place] [address] Internal Medicine 05/06/21 05/06/21 Roopa Almonte MD [address] [facility] 200 [place], [place] [address] Hospitalist Endocrinology, Diabetes, and Metabolism 05/30/21 Griffin Joshi MD [address] [facility] [address] [place] [address] Cardiovascular Disease 07/25/21 Rina Magallon, RN Lead Milking 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 07/29/21 07/11/22 Griffin Joshi MD [address] [facility] [address] [place] [address] Assigned Heart and Vascular Provider 08/06/21 10/07/21 Roopa Almonte MD [address] [place] [address] Assigned Endocrinology Provider 09/10/21 [place] [address] [facility] [place] [address] Assigned Musculoskeletal Provider 09/17/21 10/14/21 Lydia Bernstein PA-C [address] [place] [address] Assigned PCP 10/01/21 10/21/21 Kate Rosa Maria, CHW Community Health Worker 10/06/21 [place] [address] [place] [address] Assigned Musculoskeletal Provider 10/15/21 04/26/23 Paula Reza MD [address] [place] [address] Assigned PCP 10/22/21 12/23/21 Keerthi Miner APRN INTERDISCIPLINARY PROFESSOR [address] [place] [address] Assigned Heart and Vascular Provider 10/08/21 02/10/22 Shahida Sutton APRN INTERDISCIPLINARY PROFESSOR Assigned PCP 12/24/21 03/24/22 Porsha Michaels APRN INTERDISCIPLINARY PROFESSOR [address] [address] Assigned Heart and Vascular Provider 02/11/22 05/12/22 Paula Reza MD [address] [place] [address] Assigned PCP 03/25/22 04/07/22 Shahida Sutton APRN INTERDISCIPLINARY PROFESSOR [address] [place] [address] Assigned PCP 04/08/22 06/30/22 Daylin Ludwig, EP [facility] [address] [place] [address] Cardiac Rehabilitation Therapist 05/16/23 Laurel Velasquez MD [address] [address] Assigned Heart and Vascular Provider 05/13/22 06/30/22 Daylin Ludwig, EP [facility] [address] [address] Cardiac Rehabilitation Therapist 06/08/22 06/09/23 Paula Reza MD [address] [address] Assigned PCP 07/01/22 07/07/22 Porsha Michaels APRN INTERDISCIPLINARY PROFESSOR [address] [place] [address] Assigned Heart and Vascular Provider 07/01/22 07/07/22 Laurel Velasquez MD [address] [address] Assigned Heart and Vascular Provider 07/08/22 08/04/22 Shahida Sutton APRN INTERDISCIPLINARY PROFESSOR Assigned PCP 07/08/22 09/08/22 Marilin Montaño, INTERDISCIPLINARY PROFESSOR [address] [place] [address] Assigned Heart and Vascular Provider 08/05/22 Esha Dewitt MD [address] [facility] 36 [place] [address] Gastroenterology 09/06/22 Heather Mosquera MD [address] [place] [address] Internal Medicine 09/06/22 Paula Reza MD [address] [place] [address] Assigned PCP 09/09/22 01/05/23 Esha Dewitt MD [address] [address] Assigned Gastroenterology Provider 09/23/22 Valdo Escamilla PA-C [address] [facility] [address] [place] [address] Assigned Neuroscience Provider 09/30/22 Nohelia Abarca PA-C [address] [place] [address] Physician Director Funds Development Gastroenterology 10/03/22 Heather Mosquera MD [address] [place] [address] Assigned PCP 01/06/23 Fawad York MD [address] [place], [place] [address] Assigned Musculoskeletal Provider 04/27/23 06/25/23 documented as of this encounter
--- OUTSIDE RECORDS SUMMARY | 2023-10-02 15:50 | XMS_ITS | Encounter Summary ---
Author Organization [facility] Address [address] [place] [address] Care Team Providers Care Transfer Agent Name Role Phone Mingo Aldana MD Primary Car e Provider Herman, Shahida Cummings APRN NITROGEN OPERATOR Primary Care Provi ford Unavailable Herman, Shahida Cummings APRN NITROGEN OPERATOR Unavailable Un available Herman, Shahida Cummings APRN NITROGEN OPERATOR Unavailable Un available Carolynn Ramon RN Unavailable [phone] Augustine Callaway MD Unavailable Brady Lion MD Unavailable Un available Nima France-C Unavailable [phone] Camille Chandler PA-C Unavailable [phone] Anabela Barakat APRN NITROGEN OPERATOR Unavailable Nima France-C Unavailable [phone] Basilio Morillo DO Unavailable Fawad York MD Unavailable [phone] Roopa Almonte MD Unavailable [phone] Augustine Callaway MD Unavailable Maryse Burton PA-C Unavailable Marquita Starkey MD Unavailable [phone] Roopa Almonte MD Unavailable [phone] Griffin Joshi MD Unavailable Rina Magallon RN Unavailable [phone] Paula Reza MD Primary Care Provider [phone] Griffin Joshi MD Unavailable Roopa Almonte MD Unavailable [phone] [facility] hospital[facility] win DO Unavailable Lydia Bernstein PA-C Unavailable Rosa Maria Love Unavailable [phone] Augustine Callaway MD Unavailable Paula Reza MD Unavailable Keerthi Miner APRN NITROGEN OPERATOR Unavailable Herman, Shahida Cummings APRN NITROGEN OPERATOR Unavailable Un available Porsha Michaels APRN NITROGEN OPERATOR Unavailable [phone] Paula Reza MD Unavailable Herman, Shahida Cummings APRN NITROGEN OPERATOR Unavailable Un available Daylin Ludwig Unavailable [phone] Laurel Velasquez MD Unavailable [phone] Daylin Ludwig Unavailable [phone] Paula Reza MD Unavailable Porsha Michaels APRN NITROGEN OPERATOR Unavailable [phone] Laurel Velasquez MD Unavailable [phone] Herman, Shahida Cummings APRN NITROGEN OPERATOR Unavailable Un available Marilin Montaño NITROGEN OPERATOR Unavailable [phone] Esha Dewitt MD Unavailable [phone] Heather Mosquera MD Unavailable [phone] Paula Reza MD Unavailable Esha Dewitt MD Unavailable [phone] Valdo Escamilla PA-C Unavailable Nohelia Abarca PA-C Unavailable Heather Mosquera MD Unavailable Fawad York MD Unavailable [phone] Encounter Details Date Type Department Care Team (Late st Contact Info) Description 09/05/[address] [address] Maximiliano Herrmann Social History Tobacco [...] Out COVID-19 02/15/2020 02/15/2020 02/16/2020 2:32 PM 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 Rule Out COVID-19 01/05/2021 01/05/2021 01/06/2021 12:57 PM CDT ESBL 01/05/2021 01/05/2021 Rule Out COVID-19 06/30/2021 06/30/2021 07/01/2021 9:34 AM CDT Rule Out COVID-19 07/25/2021 07/25/2021 07/25/2021 8:02 PM CDT documented as of this encounter Care Teams Transfer Agent Relationship Specialty Start Date End Date Mingo Aldana MD PCP - General Family Practice 07/22/09 07/12/14 Shahida Sutton APRN NITROGEN OPERATOR PCP - General Nurse Practitioner 08/17/14 08/04/21 Shahida Sutton APRN NITROGEN OPERATOR PCP - Assigned PCP 07/12/14 05/07/18 Paula Reza MD [address] [facility] [address] [place] [address] PCP - General Internal Medicine 08/05/21 Shahida Sutton APRN NITROGEN OPERATOR Assigned PCP 07/12/14 09/30/21 Carolynn Ramon RN Personal Advocate & Liaison (PAL) 12/17/18 08/07/21 [place] [address] [address] [place] [address] Assigned Musculoskeletal Provider 12/26/19 08/21/20 Brady Lion MD Assigned Heart and Vascular Provider 12/26/19 08/14/20 Nima France PA-C [address] [place] [address] Assigned Surgical Provider 05/19/20 08/21/20 Camille Chandler PA-C [address] [place] [address] Assigned Neuroscience Provider 05/19/20 09/14/20 Anabela Barakat APRN CNP [address] [place] [address] Assigned Heart and Vascular Provider 08/15/20 08/05/21 Nima France PA-C [address] [facility] [address] [place] [address] Assigned Musculoskeletal Provider 08/22/20 11/13/20 [place] [address] [facility] [place], [place] [address] Assigned Musculoskeletal Provider 11/14/20 12/04/20 Fawad York MD [address] [place], [place] [address] Assigned Musculoskeletal Provider 12/05/20 02/05/21 Roopa Almonte MD [address] [facility] [address] [place], [place] [address] Endocrinology, Diabetes, and Metabolism 01/19/21 [place] [address] [facility] [address] [place] [address] Assigned Musculoskeletal Provider 02/06/21 09/16/21 Maryse Burton PA-C [address] [place] [address] Physician Venetian Blind Maker Dermatology 04/14/21 Marquita Starkey MD [address] [facility] [address] [place], [place] [address] Internal Medicine 05/06/21 05/06/21 Roopa Almonte MD [address] [facility] [address] [place] [address] Hospitalist Endocrinology, Diabetes, and Metabolism 05/30/21 Griffin Joshi MD [address] [place] [address] Cardiovascular Disease 07/25/21 Rina Magallon, RN Lead Spare Hand Carding 07/29/21 07/11/22 Griffin Joshi MD [address] [facility] [address] [place] [address] Assigned Heart and Vascular Provider 08/06/21 10/07/21 Roopa Almonte MD [address] [facility] 200 [place] [address] Assigned Endocrinology Provider 09/10/21 [place] [address] [facility] [place] [address] Assigned Musculoskeletal Provider 09/17/21 10/14/21 Lydia Bernstein PA-C [address] [place] [address] Assigned PCP 10/01/21 10/21/21 Rosa Maria Love CHW Community Health Worker 10/06/21 [place] [address] [facility] [address] [place] [address] Assigned Musculoskeletal Provider 10/15/21 04/26/23 Paula Reza MD [address] [place] [address] Assigned PCP 10/22/21 12/23/21 Keerthi Miner APRN NITROGEN OPERATOR [address] [place] [address] Assigned Heart and Vascular Provider 10/08/21 02/10/22 Shahida Sutton APRN NITROGEN OPERATOR Assigned PCP 12/24/21 03/24/22 Porsha Michaels APRN NITROGEN OPERATOR [address] [place] [address] Assigned Heart and Vascular Provider 02/11/22 05/12/22 Paula Reza MD [address] [place] [address] Assigned PCP 03/25/22 04/07/22 Shahida Sutton APRN NITROGEN OPERATOR [address] [place] [address] Assigned PCP 04/08/22 06/30/22 Daylin Ludwig EP [facility] [address] [place] [address] Cardiac Rehabilitation Therapist 05/16/23 Laurel Velasquez MD [address] [address] Assigned Heart and Vascular Provider 05/13/22 06/30/22 Daylin Ludwig EP [facility] [address] [place], [place] [address] Cardiac Rehabilitation Therapist 06/08/22 06/09/23 Paula Reza MD [address] [place], [place] [address] Assigned PCP 07/01/22 07/07/22 Porsha Michaels APRN NITROGEN OPERATOR [address] [place] [address] Assigned Heart and Vascular Provider 07/01/22 07/07/22 Laurel Velasquez MD [address] [place] [address] Assigned Heart and Vascular Provider 07/08/22 08/04/22 Shahida Sutton APRN NITROGEN OPERATOR Assigned PCP 07/08/22 09/08/22 Marilin Montaño, NITROGEN OPERATOR [address] [place] [address] Assigned Heart and Vascular Provider 08/05/22 Esha Dewitt MD [address] [place] [address] 36 [place] [address] Gastroenterology 09/06/22 Heather Mosquera MD [address] [place] [address] Internal Medicine 09/06/22 Paula Reza MD [address] [place] [address] Assigned PCP 09/09/22 01/05/23 Esha Dewitt MD [address] [facility] 36 [place] [address] Assigned Gastroenterology Provider 09/23/22 Valdo Escamilla PA-C [address] [facility] [address] [place] [address] Assigned Neuroscience Provider 09/30/22 Nohelia Abarca PA-C [address] [place] [address] Physician Venetian Blind Maker Gastroenterology 10/03/22 Heather Mosquera MD [address] [facility] 150 [place] [address] Assigned PCP 01/06/23 Fawad York MD [address] [place] [address] Assigned Musculoskeletal Provider 04/27/23 06/25/23 documented as of this encounter
--- OUTSIDE RECORDS SUMMARY | 2023-10-02 15:50 | XMS_ITS | Encounter Summary ---
Author Organization [facility] Address [address] [place] [address] Care Team Providers Care Graduate Student Instructor Name Role Phone Mingo Aldana MD Primary Car e Provider Herman, Shahida Cummings APRN HEAT SEALING MACHINE OPERATOR Primary Care Provi ford Unavailable Herman, Shahida Cummings APRN HEAT SEALING MACHINE OPERATOR Unavailable Un available Herman, Shahida Cummings APRN HEAT SEALING MACHINE OPERATOR Unavailable Un available Carolynn Ramon RN Unavailable [phone] Augustine Callaway MD Unavailable Brady Lion MD Unavailable Un available Nima France-C Unavailable [phone] Camille Chandler PA-C Unavailable [phone] Anabela Barakat APRN HEAT SEALING MACHINE OPERATOR Unavailable Nima France-C Unavailable [phone] Basilio Morillo DO Unavailable Fawad York MD Unavailable [phone] Roopa Almonte MD Unavailable [phone] Augustine Callaway MD Unavailable Maryse Burton PA-C Unavailable Marquita Starkey MD Unavailable [phone] Roopa Almonte MD Unavailable [phone] Griffin Joshi MD Unavailable Rina Magallon RN Unavailable [phone] Paula Reza MD Primary Care Provider [phone] Griffin Joshi MD Unavailable Roopa Almonte MD Unavailable [phone] [facility] hospital[facility] win DO Unavailable Lydia Bernstein PA-C Unavailable Rosa Maria Love Unavailable [phone] Augustine Callaway MD Unavailable Paula Reza MD Unavailable Keerthi Miner APRN HEAT SEALING MACHINE OPERATOR Unavailable Herman, Shahida Cummings APRN HEAT SEALING MACHINE OPERATOR Unavailable Un available Porsha Michaels APRN HEAT SEALING MACHINE OPERATOR Unavailable [phone] Paula Reza MD Unavailable Herman, Shahida Cummings APRN HEAT SEALING MACHINE OPERATOR Unavailable Un available Daylin Ludwig Unavailable [phone] Laurel Velasquez MD Unavailable [phone] Daylin Ludwig Unavailable [phone] Paula Reza MD Unavailable Porsha Michaels APRN HEAT SEALING MACHINE OPERATOR Unavailable [phone] Laurel Velasquez MD Unavailable [phone] Herman, Shahida Cummings APRN HEAT SEALING MACHINE OPERATOR Unavailable Un available Marilin Montaño HEAT SEALING MACHINE OPERATOR Unavailable [phone] Esha Dewitt MD Unavailable [phone] Heather Mosquera MD Unavailable Paula Reza MD Unavailable Esha Dewitt MD Unavailable [phone] Valdo Escamilla PA-C Unavailable Nohelia Abarca PA-C Unavailable [phone] Heather Mosquera MD Unavailable [phone] Fawad York MD Unavailable [phone] Encounter Details Date Type Department Care Team (Late st Contact Info) Description 05/28/[address], [facility] 100 [place] [address] [place] Social History Tobacco [...] Out COVID-19 02/15/2020 02/15/2020 02/16/2020 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 Rule Out COVID-19 01/05/2021 01/05/2021 01/06/2021 12:57 PM CDT ESBL 01/05/2021 01/05/2021 Rule Out COVID-19 06/30/2021 06/30/2021 07/01/2021 9:34 AM CDT Rule Out COVID-19 07/25/2021 07/25/2021 07/25/2021 8:02 PM CDT documented as of this encounter Care Teams Graduate Student Instructor Relationship Specialty Start Date End Date Mingo Aldana MD PCP - General Family Practice 07/22/09 07/12/14 Shahida Sutton APRN HEAT SEALING MACHINE OPERATOR PCP - General Nurse Practitioner 08/17/14 08/04/21 Shahida Sutton APRN HEAT SEALING MACHINE OPERATOR PCP - Assigned PCP 07/12/14 05/07/18 Paula Reza MD [address] [facility] 200 [place], [place] [address] PCP - General Internal Medicine 08/05/21 Shahida Sutton APRN HEAT SEALING MACHINE OPERATOR Assigned PCP 07/12/14 09/30/21 Carolynn Ramon RN Personal Advocate & Liaison (PAL) 12/17/18 08/07/21 [place] [address] [place], [place] [address] Assigned Musculoskeletal Provider 12/26/19 08/21/20 Brady Lion MD Assigned Heart and Vascular Provider 12/26/19 08/14/20 Nima France PA-C [address] [place] [address] Assigned Surgical Provider 05/19/20 08/21/20 Camille Chandler PA-C [address] [place] [address] Assigned Neuroscience Provider 05/19/20 09/14/20 Anabela Barakat APRN CNP [address] [place] [address] Assigned Heart and Vascular Provider 08/15/20 08/05/21 Nima France PA-C [address] [facility] 450 [place] [address] Assigned Musculoskeletal Provider 08/22/20 11/13/20 [place] [address] [place], [place] [address] Assigned Musculoskeletal Provider 11/14/20 12/04/20 Fawad York MD 9 [place], [place] [address] Assigned Musculoskeletal Provider 12/05/20 02/05/21 Roopa Almonte MD [address] [facility] 200 [place], [place] [address] Endocrinology, Diabetes, and Metabolism 01/19/21 [place] [address] [facility] 300 [place] [address] Assigned Musculoskeletal Provider 02/06/21 09/16/21 Maryse Burton PA-C [address] [place] [address] Physician Contact Worker Dermatology 04/14/21 Marquita Starkey MD [address] [facility] 200 [place], [place] [address] Internal Medicine 05/06/21 05/06/21 Roopa Almonte MD [address] [facility] 200 [place], [place] [address] Hospitalist Endocrinology, Diabetes, and Metabolism 05/30/21 Griffin Joshi MD [address] [place] [address] Cardiovascular Disease 07/25/21 Rina Magallon, RN Lead Poultry Hatchery Laborer 07/29/21 07/11/22 Griffin Joshi MD [address] [place] [address] Assigned Heart and Vascular Provider 08/06/21 10/07/21 Roopa Almonte MD [address] [place] [address] 200 [place], [place] [address] Assigned Endocrinology Provider 09/10/21 [place] [address] [facility] [place] [address] Assigned Musculoskeletal Provider 09/17/21 10/14/21 Lydia Bernstein PA-C [address] [place] [address] Assigned PCP 10/01/21 10/21/21 Rosa Maria Love CHW Community Health Worker 10/06/21 [place] [address] [facility] [address] [place], [place] [address] Assigned Musculoskeletal Provider 10/15/21 04/26/23 Paula Reza MD [address] [place] [address] Assigned PCP 10/22/21 12/23/21 Keerthi Miner APRN HEAT SEALING MACHINE OPERATOR [address] [place] [address] Assigned Heart and Vascular Provider 10/08/21 02/10/22 Shahida Sutton APRN HEAT SEALING MACHINE OPERATOR Assigned PCP 12/24/21 03/24/22 Porsha Michaels APRN HEAT SEALING MACHINE OPERATOR [address] [address] Assigned Heart and Vascular Provider 02/11/22 05/12/22 Paula Reza MD [address] [place] [address] Assigned PCP 03/25/22 04/07/22 Shahida Sutton APRN HEAT SEALING MACHINE OPERATOR [address] [address] Assigned PCP 04/08/22 06/30/22 Daylin Ludwig EP [facility] [address] [place] [address] Cardiac Rehabilitation Therapist 05/16/23 Laurel Velasquez MD [address] [address] Assigned Heart and Vascular Provider 05/13/22 06/30/22 Daylin Ludwig EP [facility] [address] [place] [address] Cardiac Rehabilitation Therapist 06/08/22 06/09/23 Paula Reza MD [address] [place] [address] Assigned PCP 07/01/22 07/07/22 Porsha Michaels APRN HEAT SEALING MACHINE OPERATOR [address] [place] [address] Assigned Heart and Vascular Provider 07/01/22 07/07/22 Laurel Velasquez MD [address] [place] [address] Assigned Heart and Vascular Provider 07/08/22 08/04/22 Shahida Sutton APRN HEAT SEALING MACHINE OPERATOR Assigned PCP 07/08/22 09/08/22 Marilin Montaño, HEAT SEALING MACHINE OPERATOR [address] [place] [address] Assigned Heart and Vascular Provider 08/05/22 Esha Dewitt MD [address] [place] [address] 36 [place], [place] [address] Gastroenterology 09/06/22 Heather Mosquera MD [address] [place] [address] Internal Medicine 09/06/22 Paula Reza MD [address] [place] [address] Assigned PCP 09/09/22 01/05/23 Esha Dewitt MD 420 [facility] 36 [place] [address] Assigned Gastroenterology Provider 09/23/22 Valdo Escamilla PA-C [address] [facility] [address] [place] [address] Assigned Neuroscience Provider 09/30/22 Nohelia Abarca PA-C [address] [facility] [place] [address] Physician Contact Worker Gastroenterology 10/03/22 Heather Mosquera MD [address] [facility] 150 [place] [address] Assigned PCP 01/06/23 Fawad York MD [address] [place] [address] Assigned Musculoskeletal Provider 04/27/23 06/25/23 documented as of this encounter
--- OUTSIDE RECORDS SUMMARY | 2023-10-02 15:50 | XMS_ITS | Encounter Summary ---
Author Organization [facility] Address [address] [place] [address] Care Team Providers Care Commodities Broker Name Role Phone Mingo Aldana MD Primary Car e Provider Herman, Shahida Cummings APRN RADIOSONDE OPERATOR Primary Care Provi ford Unavailable Herman, Shahida Cummings APRN RADIOSONDE OPERATOR Unavailable Un available Herman, Shahida Cummings APRN RADIOSONDE OPERATOR Unavailable Un available Caroylnn Ramon RN Unavailable [phone] Augustine Callaway MD Unavailable Brady Lion MD Unavailable Un available Nima France-C Unavailable [phone] Camille Chandler PA-C Unavailable [phone] Anabela Barakat APRN RADIOSONDE OPERATOR Unavailable Nima France-C Unavailable [phone] Basilio Morillo DO Unavailable Fawad York MD Unavailable [phone] Roopa Almonte MD Unavailable [phone] Augustine Callaway MD Unavailable Maryse Burton PA-C Unavailable Marquita Starkey MD Unavailable [phone] Roopa Almonte MD Unavailable [phone] Griffin Joshi MD Unavailable Rina Magallon RN Unavailable [phone] Paula Reza MD Primary Care Provider [phone] Griffin Joshi MD Unavailable Roopa Almonte MD Unavailable [phone] [facility] island[facility] win DO Unavailable Lydia Bernstein PA-C Unavailable Rosa Maria Love Unavailable [phone] Augustine Callaway MD Unavailable Paula Reza MD Unavailable Keerthi Miner APRN RADIOSONDE OPERATOR Unavailable Herman, Shahida Cummings APRN RADIOSONDE OPERATOR Unavailable Un available Porsha Michaels APRN RADIOSONDE OPERATOR Unavailable [phone] Paula Reza MD Unavailable Herman, Shahida Cummings APRN RADIOSONDE OPERATOR Unavailable Un available Daylin Ludwig Unavailable [phone] Laurel Velasquez MD Unavailable [phone] Daylin Ludwig Unavailable [phone] Paula Reza MD Unavailable Porsha Michaels APRN RADIOSONDE OPERATOR Unavailable [phone] Laurel Velasquez MD Unavailable [phone] Herman, Shahida Cummings APRN RADIOSONDE OPERATOR Unavailable Un available Marilin Montaño RADIOSONDE OPERATOR Unavailable [phone] Esha Dewitt MD Unavailable [phone] Heather Mosquera MD Unavailable [phone] Paula Reza MD Unavailable Esha Dewitt MD Unavailable [phone] Valdo Escamilla PA-C Unavailable [phone] Nohelia Abarca PA-C Unavailable [phone] Heather Mosquera MD Unavailable Fawad York MD Unavailable Encounter Details Date Type Department Care Team (Late st Contact Info) Description 11/13/2011 [facility] [address] [address] Mingo Aldana MD [facility] [address] [place] [address] Social History Tobacco Use Types [...] Ramirez - 11/13/2011 1:43 PM CDT See [employer] message documented in this encounter Plan of Treatment Not on file documented as of this encounter Visit Diagnoses Not on filedocumented in this encounter Additional Health Concerns Infection Onset Date Last Indicated Resolved Time Rule Out COVID-19 02/15/2020 02/15/2020 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/2020 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 Rule Out COVID-19 01/05/2021 01/05/2021 01/06/2021 12:57 PM CDT ESBL 01/05/2021 01/05/2021 Rule Out COVID-19 06/30/2021 06/30/2021 07/01/2021 9:34 AM CDT Rule Out COVID-19 07/25/2021 07/25/2021 07/25/2021 8:02 PM CDT documented as of this encounter Care Teams Commodities Broker Relationship Specialty Start Date End Date Mingo Aldana MD PCP - General Family Practice 07/22/09 07/12/14 Shahida Sutton APRN RADIOSONDE OPERATOR PCP - General Nurse Practitioner 08/17/14 08/04/21 Shahida Sutton APRN RADIOSONDE OPERATOR PCP - Assigned PCP 07/12/14 05/07/18 Paula Reza MD [address] [place] [address] PCP - General Internal Medicine 08/05/21 Shahida Sutton APRN RADIOSONDE OPERATOR Assigned PCP 07/12/14 09/30/21 Carolynn Ramon, KASIE Personal Advocate & Liaison (PAL) 12/17/18 08/07/21 [place] [address] [place] [address] Assigned Musculoskeletal Provider 12/26/19 08/21/20 Brady Lion MD Assigned Heart and Vascular Provider 12/26/19 08/14/20 Nima France PA-C [address] [place] [address] Assigned Surgical Provider 05/19/20 08/21/20 Camille Chandler PA-C [address] [facility] [address] [place] [address] Assigned Neuroscience Provider 05/19/20 09/14/20 Anabela Barakat APRN RADIOSONDE OPERATOR [address] [place] [address] Assigned Heart and Vascular Provider 08/15/20 08/05/21 Nima France PA-C 6545 [facility] [address] [place] [address] Assigned Musculoskeletal Provider 08/22/20 11/13/20 [place] [address] [facility] [place] [address] Assigned Musculoskeletal Provider 11/14/20 12/04/20 Fawad York MD [address] [place], [place] [address] Assigned Musculoskeletal Provider 12/05/20 02/05/21 Roopa Almonte MD [address] [place] [address] Endocrinology, Diabetes, and Metabolism 01/19/21 [place] [address] [place] [address] Assigned Musculoskeletal Provider 02/06/21 09/16/21 Maryse Burton PA-C [address] [facility] [address] Physician Breakfast Attendant Dermatology 04/14/21 Marquita Starkey MD [address] [facility] [address] [place], [place] [address] Internal Medicine 05/06/21 05/06/21 Roopa Almotne MD [address] [facility] 200 [place], [place] [address] Hospitalist Endocrinology, Diabetes, and Metabolism 05/30/21 Griffin Joshi MD [address] [place] [address] Cardiovascular Disease 07/25/21 Rina Magallon, RN Lead Post Doctoral Fellow 07/29/21 07/11/22 Griffin Joshi MD [address] [place] [address] Assigned Heart and Vascular Provider 08/06/21 10/07/21 Roopa Almonte MD [address] [place], [place] [address] Assigned Endocrinology Provider 09/10/21 [place] [address] [facility] [place] [address] Assigned Musculoskeletal Provider 09/17/21 10/14/21 Lydia Bernstein PA-C [address] [place] [address] Assigned PCP 10/01/21 10/21/21 Rosa Maria Love CHW Community Health Worker 10/06/21 [place] [address] [place] [address] Assigned Musculoskeletal Provider 10/15/21 04/26/23 Paula Reza MD [address] [place], [place] [address] Assigned PCP 10/22/21 12/23/21 Keerthi Miner APRN RADIOSONDE OPERATOR [address] [place] [address] Assigned Heart and Vascular Provider 10/08/21 02/10/22 Shahida Sutton APRN RADIOSONDE OPERATOR Assigned PCP 12/24/21 03/24/22 Porsha Michaels APRN RADIOSONDE OPERATOR [address] [place] [address] Assigned Heart and Vascular Provider 02/11/22 05/12/22 Paula Reza MD [address] [place] [address] Assigned PCP 03/25/22 04/07/22 Shahida Sutton APRN RADIOSONDE OPERATOR [address] [place] [address] Assigned PCP 04/08/22 06/30/22 Daylin Ludwig EP [facility] [address] [place] [address] Cardiac Rehabilitation Therapist 05/16/23 Laurel Velasquez MD [address] [place] [address] Assigned Heart and Vascular Provider 05/13/22 06/30/22 Daylin Ludwig EP [facility] [address] [place] [address] Cardiac Rehabilitation Therapist 06/08/22 06/09/23 Paula Reza MD [address] [facility] 200 [place], [place] [address] Assigned PCP 07/01/22 07/07/22 Porsha Michaels APRN RADIOSONDE OPERATOR [address] [place] [address] Assigned Heart and Vascular Provider 07/01/22 07/07/22 Laurel Velasquez MD [address] [place] [address] Assigned Heart and Vascular Provider 07/08/22 08/04/22 Shahida Sutton APRN RADIOSONDE OPERATOR Assigned PCP 07/08/22 09/08/22 Marilin Montaño, RADIOSONDE OPERATOR [address] [place] [address] Assigned Heart and Vascular Provider 08/05/22 Esha Dewitt MD [address] [place] [address] Gastroenterology 09/06/22 Heather Mosquera MD [address] [facility] 150 [place], [place] [address] Internal Medicine 09/06/22 Paula Reza MD [address] [place] [address] Assigned PCP 09/09/22 01/05/23 Esha Dewitt MD [address] [address] Assigned Gastroenterology Provider 09/23/22 Valdo Escamilla PA-C [address] [facility] 103 [place] [address] Assigned Neuroscience Provider 09/30/22 Nohelia Abarca PA-C [address] [place] [address] Physician Breakfast Attendant Gastroenterology 10/03/22 Heather Mosquera MD 6545 [facility] 150 [place], [place] [address] Assigned PCP 01/06/23 Fawad York MD [address] [place], [place] [address] Assigned Musculoskeletal Provider 04/27/23 06/25/23 documented as of this encounter
--- OUTSIDE RECORDS SUMMARY | 2023-10-02 15:50 | XMS_ITS | Encounter Summary ---
Author Organization [facility] Address [address] [place] [address] Care Team Providers Care Construction Ironworker Name Role Phone Mingo Aldana MD Primary Car e Provider Herman, Shahida Cummings APRN SPECIFICATIONS CHECKER Primary Care Provi ford Unavailable Herman, Shahida Cummings APRN SPECIFICATIONS CHECKER Unavailable Un available Herman, Shahida Cummings APRN SPECIFICATIONS CHECKER Unavailable Un available Carolynn Ramon RN Unavailable [phone] Augustine Callaway MD Unavailable Brady Lion MD Unavailable Un available Nima France-C Unavailable [phone] Camille Chandler PA-C Unavailable [phone] Anabela Barakat APRN SPECIFICATIONS CHECKER Unavailable Nima France-C Unavailable [phone] Basilio Morillo DO Unavailable Fawad York MD Unavailable [phone] Roopa Almonte MD Unavailable [phone] Augustine Callaway MD Unavailable Maryse Burton PA-C Unavailable Marquita Starkey MD Unavailable [phone] Roopa Almonte MD Unavailable [phone] Griffin Joshi MD Unavailable Rina Magallon RN Unavailable [phone] Paula Reza MD Primary Care Provider [phone] Griffin Joshi MD Unavailable Roopa Almonte MD Unavailable [phone] [facility] win DO Unavailable Lydia Bernstein PA-C Unavailable Rosa Maria Love Unavailable [phone] Augustine Callaway MD Unavailable Paula Reza MD Unavailable Keerthi Miner APRN SPECIFICATIONS CHECKER Unavailable Herman, Shahida Cummings APRN SPECIFICATIONS CHECKER Unavailable Un available Porsha Michaels APRN SPECIFICATIONS CHECKER Unavailable [phone] Paula Reza MD Unavailable Herman, Shahida Cummings APRN SPECIFICATIONS CHECKER Unavailable Un available Daylin Ludwig Unavailable [phone] Laurel Velasquez MD Unavailable [phone] Daylin Ludwig Unavailable [phone] Paula Reza MD Unavailable Porsha Michaels APRN SPECIFICATIONS CHECKER Unavailable [phone] Laurel Velasquez MD Unavailable [phone] Herman, Shahida Cummings APRN SPECIFICATIONS CHECKER Unavailable Un available Marilin Montaño SPECIFICATIONS CHECKER Unavailable [phone] Esha Dewitt MD Unavailable [phone] Heather Mosquera MD Unavailable [phone] Paula Reza MD Unavailable Esha Dewitt MD Unavailable [phone] AyseValdo cabrera Deo PA-C Unavailable Nohelia Abarca PA-C Unavailable [phone] Heather Mosquera MD Unavailable [phone] Fawad York MD Unavailable [phone] Reason for Visit * Reason Onset Date Comments MyChart Communication 04/17/[address] ress test Encounter Details Date Type Department Care Team (Late st Contact Info) Description 04/17/2012 [facility] Medical Advice [address], [address] [place] [address] Mingo Aldana MD [facility] [address] [place] [address] MyChart Communication (nuclear stress test) Social History [...] Out COVID-19 02/15/2020 02/15/2020 02/16/2020 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 Rule Out COVID-19 01/05/2021 01/05/2021 01/06/2021 12:57 PM CDT ESBL 01/05/2021 01/05/2021 Rule Out COVID-19 06/30/2021 06/30/2021 07/01/2021 9:34 AM CDT Rule Out COVID-19 07/25/2021 07/25/2021 07/25/2021 8:02 PM CDT documented as of this encounter Care Teams Construction Ironworker Relationship Specialty Start Date End Date Katya Jasonyaneth Bimal Celestin MD PCP - General Family Practice 07/22/09 07/12/14 Shahida Sutton APRN SPECIFICATIONS CHECKER PCP - General Nurse Practitioner 08/17/14 08/04/21 Shahida Sutton APRN SPECIFICATIONS CHECKER PCP - Assigned PCP 07/12/14 05/07/18 Paula Reza MD [address] [facility] [address] [place], [place] [address] PCP - General Internal Medicine 08/05/21 Shahida Sutton APRN SPECIFICATIONS CHECKER Assigned PCP 07/12/14 09/30/21 Carolynn Ramon, KASIE Personal Advocate & Liaison (PAL) 12/17/18 08/07/21 [place] [address] [place] [address] Assigned Musculoskeletal Provider 12/26/19 08/21/20 Brady Lion MD Assigned Heart and Vascular Provider 12/26/19 08/14/20 Nima France PA-C [address] [place] [address] Assigned Surgical Provider 05/19/20 08/21/20 Camille Chandler PA-C [address]45 [facility] [address] [place], [place] [address] Assigned Neuroscience Provider 05/19/20 09/14/20 Anabela Barakat APRN SPECIFICATIONS CHECKER [address] [place] [address] Assigned Heart and Vascular Provider 08/15/20 08/05/21 Nima France PA-C [address]45 [facility] 450 [place] [address] Assigned Musculoskeletal Provider 08/22/20 11/13/20 [place] [address] [place] [address] Assigned Musculoskeletal Provider 11/14/20 12/04/20 Fawad York MD [address] [place] [address] Assigned Musculoskeletal Provider 12/05/20 02/05/21 Roopa Almonte MD [address] [facility] 200 [place] [address] Endocrinology, Diabetes, and Metabolism 01/19/21 [place] [address] [facility] 300 [place], [place] [address] Assigned Musculoskeletal Provider 02/06/21 09/16/21 Maryse Burton PA-C [address] [place] [address] Physician Product Mgr Dermatology 04/14/21 Marquita Starkey MD [address] [place] [address] Internal Medicine 05/06/21 05/06/21 Roopa Almonte MD [address] [facility] [address] [place] [address] Hospitalist Endocrinology, Diabetes, and Metabolism 05/30/21 Griffin Joshi MD [address] [place] [address] Cardiovascular Disease 07/25/21 Rina Magallon RN Lead Nursing Education Specialist 07/29/21 07/11/22 Griffin Joshi MD [address] [place] [address] Assigned Heart and Vascular Provider 08/06/21 10/07/21 Roopa Almonte MD [address] [place], [place] [address] Assigned Endocrinology Provider 09/10/21 [place] [address] [facility] [place] [address] Assigned Musculoskeletal Provider 09/17/21 10/14/21 Lydia Bernstein PA-C [address] [place] [address] Assigned PCP 10/01/21 10/21/21 Kate Rosa Maria, W Community Health Worker 10/06/21 [place] [address] [place] [address] Assigned Musculoskeletal Provider 10/15/21 04/26/23 Paula Reza MD [address] [place] [address] Assigned PCP 10/22/21 12/23/21 Keerthi Miner APRN SPECIFICATIONS CHECKER [address] [place] [address] Assigned Heart and Vascular Provider 10/08/21 02/10/22 Shahida Sutton APRN SPECIFICATIONS CHECKER Assigned PCP 12/24/21 03/24/22 Porsha Michaels APRN SPECIFICATIONS CHECKER [address] [place] [address] Assigned Heart and Vascular Provider 02/11/22 05/12/22 Paula Reza MD [address] [place] [address] Assigned PCP 03/25/22 04/07/22 Shahida Sutton APRN SPECIFICATIONS CHECKER [address] [place] [address] Assigned PCP 04/08/22 06/30/22 Daylin Ludwig EP [facility] [address] [place] [address] Cardiac Rehabilitation Therapist 05/16/23 Laurel Velasquez MD [address] [place] [address] Assigned Heart and Vascular Provider 05/13/22 06/30/22 Daylin Ludwig EP [facility] [address] [place] [address] Cardiac Rehabilitation Therapist 06/08/22 06/09/23 Paula Reza MD [address] [facility] [address] [place], [place] [address] Assigned PCP 07/01/22 07/07/22 Porsha Michaels APRN SPECIFICATIONS CHECKER [address] [place] [address] Assigned Heart and Vascular Provider 07/01/22 07/07/22 Laurel Velasquez MD [address] [place] [address] Assigned Heart and Vascular Provider 07/08/22 08/04/22 Shahida Sutton, PURCHASING ANALYST SPECIFICATIONS CHECKER Assigned PCP 07/08/22 09/08/22 Marilin Montaño, SPECIFICATIONS CHECKER [address] [place] [place] [address] Assigned Heart and Vascular Provider 08/05/22 Esha Dewitt MD 420 [facility] 36 [place], [place] [address] Gastroenterology 09/06/22 Heather Mosquera MD [address] [place] [address] Internal Medicine 09/06/22 Paula Reza MD [address] [facility] 200 [place] [address] Assigned PCP 09/09/22 01/05/23 Esha Dewitt MD 420 [facility] 36 [place], [place] [address] Assigned Gastroenterology Provider 09/23/22 Valdo Escamilla PA-C [address] [facility] [address] [place] [id number] Assigned Neuroscience Provider 09/30/22 Nohelia Abarca PA-C [address] [place], [place] [address] Physician Product Mgr Gastroenterology 10/03/22 Heather Mosquera MD [address] [place] [address] Assigned PCP 01/06/23 Fawad York MD [address] [place], [place] [address] Assigned Musculoskeletal Provider 04/27/23 06/25/23 documented as of this encounter
--- OUTSIDE RECORDS SUMMARY | 2023-10-02 15:50 | XMS_ITS | Encounter Summary ---
Author Organization [place] Address [address] [place] [address] Care Team Providers Care Agricultural Chemist Name Role Phone Mingo Aldana MD Primary Car e Provider Herman, Shahida Cummings APRN CYBER OPERATOR Primary Care Provi ford Unavailable Herman, Shahida Cummings APRN CYBER OPERATOR Unavailable Un available Herman, Shahida Cummings APRN CYBER OPERATOR Unavailable Un available Carolynn Ramon RN Unavailable [phone] Augustine Callaway MD Unavailable Brady Lion MD Unavailable Un available Nima France-C Unavailable [phone] Camille Chandler PA-C Unavailable [phone] Anabela Barakat APRN CYBER OPERATOR Unavailable Nima France-C Unavailable [phone] Basilio Morillo DO Unavailable Fawad [place] MD Unavailable [phone] Roopa Almonte MD Unavailable [phone] Augustine Callaway MD Unavailable Maryse Burton PA-C Unavailable Marquita Starkey MD Unavailable [phone] Roopa Almonte MD Unavailable [phone] Griffin Joshi MD Unavailable Rina Magallon RN Unavailable [phone] Paula Reza MD Primary Care Provider [phone] Griffin Joshi MD Unavailable Roopa Almonte MD Unavailable [phone] [facility] DO Unavailable Lydia Bernstein PA-C Unavailable Rosa Maria Love Unavailable [phone] Augustine Callaway MD Unavailable Paula Reza MD Unavailable Keerthi Miner APRN CYBER OPERATOR Unavailable Herman, Shahida Cummings APRN CYBER OPERATOR Unavailable Un available Porsha Michaels APRN CYBER OPERATOR Unavailable [phone] Paula Reza MD Unavailable Herman, Shahida Cummings APRN CYBER OPERATOR Unavailable Un available Daylin Ludwig Unavailable [phone] Laurel Velasquez MD Unavailable [phone] Daylin Ludwig Unavailable [phone] Paula Reza MD Unavailable Porsha Michaels APRN CYBER OPERATOR Unavailable [phone] Laurel Velasquez MD Unavailable [phone] Herman, Shahida Cummings APRN CYBER OPERATOR Unavailable Un available Marilin Montaño CYBER OPERATOR Unavailable [phone] Esha Dewitt MD Unavailable [phone] Heather Mosquera MD Unavailable [phone] Paula Reza MD Unavailable Esha Dewitt MD Unavailable [phone] Valdo Escamilla Deo PA-C Unavailable Rima Wilfredosima PA-C Unavailable [phone] Heather Mosquera MD Unavailable [phone] Fawad York MD Unavailable [phone] Reason for Visit * Reason Onset Date Comments Refill Request 10/15/2012 Encounter Details Date Type Department Care Team (Late st Contact Info) Description 10/15/2012 [facility] [place] [id number] [address] [address] Kavon Garrido MD [address] [place] [address] Refill Request Social History Tobacco [...] Terrell Sent: 10/15/2012 4:22 PM To: [facility] Subject: Medication Renewal Request Original authorizing provider: Kavon Garrido MD, MD Mauro Terrell would like a refill of the following medications: zolpidem (AMBIEN CR) 12.5 MG CR tablet [Kavon Garrido MD, MD] Preferred pharmacy: [id number] [id number] [address] Calderon Comment: Dr. Garrido, we have an appt scheduled next week. In you have any concerns I can be contacted at [phone]. 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 Rule Out COVID-19 01/05/2021 01/05/2021 01/06/2021 12:57 PM CDT ESBL 01/05/2021 01/05/2021 Rule Out COVID-19 06/30/2021 06/30/2021 07/01/2021 9:34 AM CDT Rule Out COVID-19 07/25/2021 07/25/2021 07/25/2021 8:02 PM CDT documented as of this encounter Care Teams Agricultural Chemist Relationship Specialty Start Date End Date Mingo Aldana MD PCP - General Family Practice 07/22/09 07/12/14 Shahida Sutton APRN CNP PCP - General Nurse Practitioner 08/17/14 08/04/21 Shahida Sutton APRN CNP PCP - Assigned PCP 07/12/14 05/07/18 Paula Reza MD [address] [facility] [address] [place] [address] PCP - General Internal Medicine 08/05/21 Shahida Sutton APRN CNP Assigned PCP 07/12/14 09/30/21 Carolynn Ramon, KASIE Personal Advocate & Liaison (PAL) 12/17/18 08/07/21 [place] [address] [place] [address] Assigned Musculoskeletal Provider 12/26/19 08/21/20 Brady Lion MD Assigned Heart and Vascular Provider 12/26/19 08/14/20 Nima France PA-C [address] [place] [address] Assigned Surgical Provider 05/19/20 08/21/20 Camille Chandler PA-C [address] [place], [place] [address] Assigned Neuroscience Provider 05/19/20 09/14/20 Anabela Barakat APRN CYBER OPERATOR [address] [place] [address] Assigned Heart and Vascular Provider 08/15/20 08/05/21 Nima Frnace PA-C [address] [place], [place] [address] Assigned Musculoskeletal Provider 08/22/20 11/13/20 [place] [address] [facility] [place] [address]38[address] Assigned Musculoskeletal Provider 11/14/20 12/04/20 Fawad York MD [address] [place], [place] 3213[address] Assigned Musculoskeletal Provider 12/05/20 02/05/21 Roopa Almonte MD [address] [facility] [address] [place] [address] Endocrinology, Diabetes, and Metabolism 01/19/21 [place] [address] [facility] [address] [place] [address] Assigned Musculoskeletal Provider 02/06/21 09/16/21 Maryse Burton PA-C [address] [place] [address] Physician Pecan Picker Dermatology 04/14/21 Marquita Starkey MD [address] [facility] [facility] [address] [place] [address] Internal Medicine 05/06/21 05/06/21 Roopa Almonte MD [address] [facility] 200 [place] [address] Hospitalist Endocrinology, Diabetes, and Metabolism 05/30/21 Griffin Joshi MD [address] [place] [address] Cardiovascular Disease 07/25/21 Rina Magallon, RN Lead Tankroom Tender 07/29/21 07/11/22 Griffin Joshi MD [address] [place] [address] Assigned Heart and Vascular Provider 08/06/21 10/07/21 Roopa Almonte MD [address] [facility] [address] [place] [address] Assigned Endocrinology Provider 09/10/21 [place] [address] [facility] [place] [address] Assigned Musculoskeletal Provider 09/17/21 10/14/21 Lydia Bernstein PA-C [address] [place] [address] Assigned PCP 10/01/21 10/21/21 Rosa Maria Love Cristina Community Health Worker 10/06/21 [place] [address] [facility] [address] [place] [address] Assigned Musculoskeletal Provider 10/15/21 04/26/23 Paula Reza MD [address] [place], [place] [address] Assigned PCP 10/22/21 12/23/21 Keerthi Miner APRN CYBER OPERATOR [address] [place] [address] Assigned Heart and Vascular Provider 10/08/21 02/10/22 Shahida Sutton APRN CYBER OPERATOR Assigned PCP 12/24/21 03/24/22 Porsha Michaels APRN CYBER OPERATOR [address] [place] [address] Assigned Heart and Vascular Provider 02/11/22 05/12/22 Paula Reza MD [address] [place], [place] [address] Assigned PCP 03/25/22 04/07/22 Shahida Sutton APRN CYBER OPERATOR [address] [place] [address] Assigned PCP 04/08/22 06/30/22 Daylin Ludwig, EP [facility] [address] [place] [address] Cardiac Rehabilitation Therapist 05/16/23 Laurel Velasquez MD [address] [place] [address] Assigned Heart and Vascular Provider 05/13/22 06/30/22 Daylin Ludwig, MIKI [facility] [address] [place] [address] Cardiac Rehabilitation Therapist 06/08/22 06/09/23 Paula Reza MD [address] [place] [address] Assigned PCP 07/01/22 07/07/22 Porsha Michaels APRN CYBER OPERATOR [address] [place] [address] Assigned Heart and Vascular Provider 07/01/22 07/07/22 Laurel Velasquez MD [address] [place], [place] [address] Assigned Heart and Vascular Provider 07/08/22 08/04/22 Shahida Sutton, CREATIVE SERVICES SPECIALIST CYBER OPERATOR Assigned PCP 07/08/22 09/08/22 Marilin Montaño, CYBER OPERATOR [address] [place] [address] Assigned Heart and Vascular Provider 08/05/22 Esha Dewitt MD [address] [place] [address] Gastroenterology 09/06/22 Heather Mosquera MD [address] [place] [address] Internal Medicine 09/06/22 Paula Reza MD [address] [facility] 200 [place] [address] Assigned PCP 09/09/22 01/05/23 Esha Dewitt MD [address] [place] [address] Assigned Gastroenterology Provider 09/23/22 Valdo Escamilla PA-C [address] [place] [address] Assigned Neuroscience Provider 09/30/22 Nohelia Abarca PA-C [address] [place] [address] Physician Pecan Picker Gastroenterology 10/03/22 Heather Mosquera MD [address] [address] Assigned PCP 01/06/23 Fawad York MD [address] [place], [place] [address] Assigned Musculoskeletal Provider 04/27/23 06/25/23 documented as of this encounter
--- OUTSIDE RECORDS SUMMARY | 2023-10-02 15:50 | XMS_ITS | Encounter Summary ---
Author Organization [facility] Address [address] [place] [address] Care Team Providers Care Technology Project Manager Name Role Phone Mingo Aldana MD Primary Car e Provider Herman, Shahida Cummings APRN ASSISTANT PROFESSOR OF GEOGRAPHY Primary Care Provi ford Unavailable Herman, Shahida Cummings APRN ASSISTANT PROFESSOR OF GEOGRAPHY Unavailable Un available Herman, Shahida Cummings APRN ASSISTANT PROFESSOR OF GEOGRAPHY Unavailable Un available Carolynn Ramon RN Unavailable [phone] Augustine Callaway MD Unavailable Brady Lion MD Unavailable Un available Nima France-C Unavailable [phone] Camille Chandler PA-C Unavailable [phone] Anabela Barakat APRN ASSISTANT PROFESSOR OF GEOGRAPHY Unavailable Nima France-C Unavailable [phone] Basilio Morillo DO Unavailable [phone] Fawad York MD Unavailable [phone] Roopa Almonte MD Unavailable [phone] Augustine Callaway MD Unavailable Maryse Burton PA-C Unavailable Marquita Starkey MD Unavailable [phone] Roopa Almonte MD Unavailable [phone] Griffin Joshi MD Unavailable Rina Magallon RN Unavailable [phone] Paula Reza MD Primary Care Provider [phone] Griffin Joshi MD Unavailable Roopa Almonte MD Unavailable [phone] [facility] hospital[facility]ilio win DO Unavailable Lydia Bernstein PA-C Unavailable Rosa Maria Love Unavailable [phone] Augustine Callaway MD Unavailable Paula Reza MD Unavailable Keerthi Miner APRN ASSISTANT PROFESSOR OF GEOGRAPHY Unavailable Herman, Shahida Cummings APRN ASSISTANT PROFESSOR OF GEOGRAPHY Unavailable Un available Porsha Michaels APRN ASSISTANT PROFESSOR OF GEOGRAPHY Unavailable [phone] Paula Reza MD Unavailable Herman, Shahida Cummings APRN ASSISTANT PROFESSOR OF GEOGRAPHY Unavailable Un available Daylin Ludwig Unavailable [phone] Laurel Velasquez MD Unavailable [phone] Daylin Ludwig Unavailable [phone] Paula Reza MD Unavailable Porsha Michaels APRN ASSISTANT PROFESSOR OF GEOGRAPHY Unavailable [phone] Laurel Velasquez MD Unavailable [phone] Herman, Shahida Cummings APRN ASSISTANT PROFESSOR OF GEOGRAPHY Unavailable Un available Marilin Montaño ASSISTANT PROFESSOR OF GEOGRAPHY Unavailable [phone] Esha Dewitt MD Unavailable [phone] Heather Mosquera MD Unavailable Paula Reza MD Unavailable Esha Dewitt MD Unavailable [phone] AyseStanford cabrerashiv Desouza PA-C Unavailable [phone] Nohelia Abarca PA-C Unavailable [phone] Heather Mosquera MD Unavailable [phone] Fawad York MD Unavailable [phone] Reason for Visit * Reason Onset Date Comments MyChart Communication 11/06/2012 11/06/12 CT results Encounter Details Date Type Department Care Team (Late st Contact Info) Description 11/06/2012 [facility] [address], [address] [place] [address] Mingo Aldana MD [facility] [address] [place] [address] MyChart Communication (11/06/12 CT results) Social History [...] Out COVID-19 02/15/2020 02/15/2020 02/16/2020 2:32 PM ARTIFACTS CONSERVATOR Rule Out COVID-19 01/05/2021 01/05/2021 01/06/2021 12:57 PM CDT ESBL 01/05/2021 01/05/2021 Rule Out COVID-19 06/30/2021 06/30/2021 07/01/2021 9:34 AM CDT Rule Out COVID-19 07/25/2021 07/25/2021 07/25/2021 8:02 PM CDT documented as of this encounter Care Teams Technology Project Manager Relationship Specialty Start Date End Date Katya Jasonyaneth Bimal Celestin MD PCP - General Family Practice 07/22/09 07/12/14 Shahida Sutton APRN ASSISTANT PROFESSOR OF GEOGRAPHY PCP - General Nurse Practitioner 08/17/14 08/04/21 Shahida Sutton APRN ASSISTANT PROFESSOR OF GEOGRAPHY PCP - Assigned PCP 07/12/14 05/07/18 Paula Reza MD [address] [place] [address] PCP - General Internal Medicine 08/05/21 Shahida Sutton APRN ASSISTANT PROFESSOR OF GEOGRAPHY Assigned PCP 07/12/14 09/30/21 Carolynn Ramon, KASIE Personal Advocate & Liaison (PAL) 12/17/18 08/07/21 [place] [address] [place] [address] Assigned Musculoskeletal Provider 12/26/19 08/21/20 Brady Lion MD Assigned Heart and Vascular Provider 12/26/19 08/14/20 Nima France PA-C [address] [place] [address] Assigned Surgical Provider 05/19/20 08/21/20 Camille Chandler PA-C [address] [facility] [address] [place], [place] [address] Assigned Neuroscience Provider 05/19/20 09/14/20 Anabela Barakat APRN ASSISTANT PROFESSOR OF GEOGRAPHY [address] [place] [address] Assigned Heart and Vascular Provider 08/15/20 08/05/21 Nima France PA-C [address] [facility] [address] [place] [address] Assigned Musculoskeletal Provider 08/22/20 11/13/20 [place] [address] [place] [address] Assigned Musculoskeletal Provider 11/14/20 12/04/20 Fawad York MD [address] [place] [address] Assigned Musculoskeletal Provider 12/05/20 02/05/21 Roopa Almonte MD [address] [facility] 200 [place] [address] Endocrinology, Diabetes, and Metabolism 01/19/21 [place] [address] [facility] [address] [place], [place] [address] Assigned Musculoskeletal Provider 02/06/21 09/16/21 Maryse Burton PA-C [address] [place], [place] [address] Physician Gasateria Attendant Dermatology 04/14/21 Marquita Starkey MD [address] [facility] [address] [place] [address] Internal Medicine 05/06/21 05/06/21 Roopa Almonte MD [address] [facility] [address] [place] [address] Hospitalist Endocrinology, Diabetes, and Metabolism 05/30/21 Griffin Joshi MD [address] [place] [address] Cardiovascular Disease 07/25/21 Rina Magallon RN Lead Metal Drawer 07/29/21 07/11/22 Griffin Joshi MD [address] [place] [address] Assigned Heart and Vascular Provider 08/06/21 10/07/21 Roopa Almonte MD [address] [place], [place] [address] Assigned Endocrinology Provider 09/10/21 [place] [address] [facility] [place] [address] Assigned Musculoskeletal Provider 09/17/21 10/14/21 Lydia Bernstein PA-C [address] [place] [address] Assigned PCP 10/01/21 10/21/21 Klarissa Lovesay, W Community Health Worker 10/06/21 [place] [address] [place] [address] Assigned Musculoskeletal Provider 10/15/21 04/26/23 Paula Reza MD [address] [place] [address] Assigned PCP 10/22/21 12/23/21 Keerthi Miner APRN ASSISTANT PROFESSOR OF GEOGRAPHY [address] [place] [address] Assigned Heart and Vascular Provider 10/08/21 02/10/22 Shahida Sutton APRN ASSISTANT PROFESSOR OF GEOGRAPHY Assigned PCP 12/24/21 03/24/22 Porsha Michaels APRN ASSISTANT PROFESSOR OF GEOGRAPHY [address] [place] [address] Assigned Heart and Vascular Provider 02/11/22 05/12/22 Paula Reza MD [address] [place] [address] Assigned PCP 03/25/22 04/07/22 Shahida Sutton APRN ASSISTANT PROFESSOR OF GEOGRAPHY [address] [place] [address] Assigned PCP 04/08/22 06/30/22 Daylin Ludwig EP [facility] [address] [place] [address] Cardiac Rehabilitation Therapist 05/16/23 Laurel Velasquez MD [address] [place] [address] Assigned Heart and Vascular Provider 05/13/22 06/30/22 Daylin Ludwig EP [facility] [address] [place] [address] Cardiac Rehabilitation Therapist 06/08/22 06/09/23 Paula Reza MD [address] [facility] [address] [place], [place] [address] Assigned PCP 07/01/22 07/07/22 Porsha Michaels APRN ASSISTANT PROFESSOR OF GEOGRAPHY [address] [place] [address] Assigned Heart and Vascular Provider 07/01/22 07/07/22 Laurel Velasquez MD [address] [place] [address] Assigned Heart and Vascular Provider 07/08/22 08/04/22 Shahida Sutton, LINEMARKER ASSISTANT PROFESSOR OF GEOGRAPHY Assigned PCP 07/08/22 09/08/22 Marilin Montaño, ASSISTANT PROFESSOR OF GEOGRAPHY [address] [place] [address] Assigned Heart and Vascular Provider 08/05/22 Esha Dewitt MD [address] [facility] [address] [place], [place] [address] Gastroenterology 09/06/22 Heather Mosquera MD [address] [place] [address] Internal Medicine 09/06/22 Paula Reza MD [address] [place] [address] Assigned PCP 09/09/22 01/05/23 Esha Dewitt MD [address] [facility] [address] [place], [place] [address] Assigned Gastroenterology Provider 09/23/22 Valdo Escamilla PA-C [address] [facility] [address] [place], [place] [address] Assigned Neuroscience Provider 09/30/22 Nohelia Abarca PA-C [address] [facility] [place], [place] [address] Physician Gasateria Attendant Gastroenterology 10/03/22 Heather Mosquera MD [address] [place] [address] Assigned PCP 01/06/23 Fawad York MD [address] [place], [place] [address] Assigned Musculoskeletal Provider 04/27/23 06/25/23 documented as of this encounter
--- OUTSIDE RECORDS SUMMARY | 2023-10-02 15:50 | XMS_ITS | Encounter Summary ---
Author Organization [place] Address [address] [place] [address] Care Team Providers Care Sandblaster Glass Name Role Phone Mingo Aldana MD Primary Car e Provider Herman, Shahida Cummings APRN JAVA SYBASE DEVELOPER Primary Care Provi ford Unavailable Herman, Shahida Cummings APRN JAVA SYBASE DEVELOPER Unavailable Un available Herman, Shahida Cummings APRN JAVA SYBASE DEVELOPER Unavailable Un available Carolynn Ramon RN Unavailable [phone] Augustine Callaway MD Unavailable Brady Lion MD Unavailable Un available Nima France-C Unavailable [phone] Camille Chandler PA-C Unavailable [phone] Anabela Barakat APRN JAVA SYBASE DEVELOPER Unavailable Nima France-C Unavailable [phone] Basilio Morillo DO Unavailable [phone] Fawad York MD Unavailable [phone] Roopa Almonte MD Unavailable [phone] Augustine Callaway MD Unavailable aMryse Burton PA-C Unavailable Marquita Starkey MD Unavailable [phone] Roopa Almonte MD Unavailable [phone] Griffin Joshi MD Unavailable Rina Magallon RN Unavailable [phone] Paula Reza MD Primary Care Provider [phone] Griffin Joshi MD Unavailable Roopa Almonte MD Unavailable [phone] [facility] DO Unavailable Lydia Bernstein PA-C Unavailable Rosa Maria Love Unavailable [phone] Augustine Callaway MD Unavailable Paula Reza MD Unavailable Keerthi Miner APRN JAVA SYBASE DEVELOPER Unavailable Herman, Shahida Cummings APRN JAVA SYBASE DEVELOPER Unavailable Un available Porhsa Michaels APRN JAVA SYBASE DEVELOPER Unavailable [phone] Paula Reza MD Unavailable Herman, Shahida Cummings APRN JAVA SYBASE DEVELOPER Unavailable Un available Daylin Ludwig Unavailable [phone] Laurel Velasquez MD Unavailable [phone] Daylin Ludwig Unavailable [phone] Paula Reza MD Unavailable Porsha Michaels APRN JAVA SYBASE DEVELOPER Unavailable [phone] Laurel Velasquez MD Unavailable [phone] Herman, Shahida Cummings APRN JAVA SYBASE DEVELOPER Unavailable Un available Marilin Montaño JAVA SYBASE DEVELOPER Unavailable [phone] Esha Dewitt MD Unavailable [phone] Heather Mosquera MD Unavailable Paula Reza MD Unavailable Esha Dewitt MD Unavailable [phone] Valdo Escamilla Deo PA-C Unavailable [phone] Nohelia Abraca PA-C Unavailable [phone] Heather Mosquera MD Unavailable [phone] Fawad York MD Unavailable [phone] Reason for Visit * Reason Onset Date Comments Pt. Information/instruction 07/05/2012 MRI Encounter Details Date Type Department Care Team (Late st Contact Info) Description 07/05/2012 [facility] [address], [address] [place] [address] Mingo Aldana MD [facility] [address] [place], [place] [address] Pt. Information/instruc tion (MRI) Social History Tobacco [...] imaging for his shoulder? Mingo Aldana MD [facility] documented in this encounter Plan of Treatment Not on file documented as of this encounter Visit Diagnoses Not on filedocumented in this encounter Additional Health Concerns Infection Onset Date Last Indicated Resolved Time Rule Out COVID-19 02/15/2020 02/15/2020 02/16/2020 2:[address] Rule Out COVID-19 01/05/2021 01/05/2021 01/06/2021 12:57 PM CDT ESBL 01/05/2021 01/05/2021 Rule Out COVID-19 06/30/2021 06/30/2021 07/01/2021 9:34 AM CDT Rule Out COVID-19 07/25/2021 07/25/2021 07/25/2021 8:02 PM CDT documented as of this encounter Care Teams Sandblaster Glass Relationship Specialty Start Date End Date Mingo Aldana MD PCP - General Family Practice 07/22/09 07/12/14 Shahida Sutton APRN JAVA SYBASE DEVELOPER PCP - General Nurse Practitioner 08/17/14 08/04/21 Shahida Sutton APRN JAVA SYBASE DEVELOPER PCP - Assigned PCP 07/12/14 05/07/18 Paula Reza MD [address] [address] PCP - General Internal Medicine 08/05/21 Shahida Sutton APRN JAVA SYBASE DEVELOPER Assigned PCP 07/12/14 09/30/21 Carolynn Ramon RN Personal Advocate & Liaison (PAL) 12/17/18 08/07/21 [place] [address] [place] [address] Assigned Musculoskeletal Provider 12/26/19 08/21/20 Brady Lion MD Assigned Heart and Vascular Provider 12/26/19 08/14/20 Nima France PA-C [address] [facility] [address] [place] [address] Assigned Surgical Provider 05/19/20 08/21/20 Camille Chandler PA-C [address] [facility] [address] [address] [place] [address] Assigned Neuroscience Provider 05/19/20 09/14/20 Anabela Barakat APRN JAVA SYBASE DEVELOPER [address]00 [place] [address] Assigned Heart and Vascular Provider 08/15/20 08/05/21 Nima France PA-C [address] [address] [place] [address] Assigned Musculoskeletal Provider 08/22/20 11/13/20 [place] [address] [facility] [place] [address] Assigned Musculoskeletal Provider 11/14/20 12/04/20 Fawad York MD [address] [place] [address] Assigned Musculoskeletal Provider 12/05/20 02/05/21 Roopa Almonte MD [address] [facility] 200 [place] [address] Endocrinology, Diabetes, and Metabolism 01/19/21 [place] [address] [facility] [address] [place] [address] Assigned Musculoskeletal Provider 02/06/21 09/16/21 Maryse Burton PA-C [address] [place] [address] Physician Lead Caregiver Dermatology 04/14/21 Marquita Starkey MD [address] [facility] [address] [place] [address] Internal Medicine 05/06/21 05/06/21 Roopa Almonte MD [address] [facility] [address] [place] [address] Hospitalist Endocrinology, Diabetes, and Metabolism 05/30/21 Griffin Joshi MD [address] [place] [address] Cardiovascular Disease 07/25/21 Rina Magallon, RN Lead Seamless Tube Roller 07/29/21 07/11/22 Griffin Joshi MD [address] [place] [address] Assigned Heart and Vascular Provider 08/06/21 10/07/21 Roopa Almonte MD [address] [facility] 200 [place] [address] Assigned Endocrinology Provider 09/10/21 [place] [address] [facility] [place] [address] Assigned Musculoskeletal Provider 09/17/21 10/14/21 Lydia Bernstein PA-C [address] [place] [address] Assigned PCP 10/01/21 10/21/21 Rosa Maria Love Cristina Community Health Worker 10/06/21 [place] [address] [facility] [address] [place] [address] Assigned Musculoskeletal Provider 10/15/21 04/26/23 Paula Reza MD [address] [facility] [address] [place] [address] Assigned PCP 10/22/21 12/23/21 Keerthi Miner APRN JAVA SYBASE DEVELOPER [address] [place] [address] Assigned Heart and Vascular Provider 10/08/21 02/10/22 Shahida Sutton APRN JAVA SYBASE DEVELOPER Assigned PCP 12/24/21 03/24/22 Porsha Michaels APRN JAVA SYBASE DEVELOPER [address] [place] [address] Assigned Heart and Vascular Provider 02/11/22 05/12/22 Paula Reza MD [address] [place] [address] Assigned PCP 03/25/22 04/07/22 Shahida Sutton APRN JAVA SYBASE DEVELOPER [address] [place] [address] Assigned PCP 04/08/22 06/30/22 Daylin Ludwig, [facility] [address] [place] [address] Cardiac Rehabilitation Therapist 05/16/23 Laurel Velasquez MD [address] [place] [address] Assigned Heart and Vascular Provider 05/13/22 06/30/22 Daylin Ludwig, EP [facility] [address] [place] [address] Cardiac Rehabilitation Therapist 06/08/22 06/09/23 Paula Reza MD [address] [place] [address] Assigned PCP 07/01/22 07/07/22 Porsha Michaels APRN JAVA SYBASE DEVELOPER [address] [place] [address] Assigned Heart and Vascular Provider 07/01/22 07/07/22 Laurel Velasquez MD [address] [place] [address] Assigned Heart and Vascular Provider 07/08/22 08/04/22 Shahida Sutton APRN JAVA SYBASE DEVELOPER Assigned PCP 07/08/22 09/08/22 Marilin Montaño, JAVA SYBASE DEVELOPER [address] [place] [address] Assigned Heart and Vascular Provider 08/05/22 Esha Dewitt MD [address] [facility] [address] [place], [place] [address] MD Gastroenterology 09/06/22 Heather Mosquera MD [address] [facility] [address] [facility] [place] [address] MD Internal Medicine 09/06/22 Paula Reza MD [address] [facility] [address] [place], [place] [address] Assigned PCP 09/09/22 01/05/23 Esha Dewitt MD [address] [facility] [address] [place], [place] [address] Assigned Gastroenterology Provider 09/23/22 Valdo Escamilla PA-C [address] [place] [address] Assigned Neuroscience Provider 09/30/22 Nohelia Abarca PA-C [address] [place] [address] Physician Lead Caregiver Gastroenterology 10/03/22 Heather Mosquera MD [address] [place] [address] Assigned PCP 01/06/23 Fawad York MD [address] [place] [address] Assigned Musculoskeletal Provider 04/27/23 06/25/23 documented as of this encounter
--- OUTSIDE RECORDS SUMMARY | 2023-10-02 15:50 | XMS_ITS | Encounter Summary ---
Author Organization [place] Address [address] [place] [address] Care Team Providers Care Watermelon Harvesting Supervisor Name Role Phone Mingo Aldana MD Primary Car e Provider Herman, Shahida Cummings APRN PRE KINDERGARTEN TEACHER Primary Care Provi ford Unavailable Herman, Shahida Cummings APRN PRE KINDERGARTEN TEACHER Unavailable Un available Herman, Shahida Cummings APRN PRE KINDERGARTEN TEACHER Unavailable Un available Carolynn Ramon RN Unavailable [phone] Augustine Callaway MD Unavailable Brady Lion MD Unavailable Un available Nima France-C Unavailable [phone] Camille Chandler PA-C Unavailable [phone] Anabela Barakat APRN PRE KINDERGARTEN TEACHER Unavailable Nmia France-C Unavailable [phone] Basilio Morillo DO Unavailable [phone] Fawad York MD Unavailable [phone] Roopa Almonte MD Unavailable [phone] Augustine Callaway MD Unavailable Maryse Burton PA-C Unavailable Marquita Starkey MD Unavailable [phone] Roopa Almonte MD Unavailable [phone] Griffin Joshi MD Unavailable Rina Magallon RN Unavailable [phone] Paula Reza MD Primary Care Provider [phone] Griffin Joshi MD Unavailable Roopa Almonte MD Unavailable [phone] [facility] DO Unavailable Lydia Bernstein PA-C Unavailable Rosa Maria Love Unavailable [phone] Augustine Callaway MD Unavailable Paula Reza MD Unavailable Keerthi Miner APRN PRE KINDERGARTEN TEACHER Unavailable Herman, Shahida Cummings APRN PRE KINDERGARTEN TEACHER Unavailable Un available Porsha Michaels APRN PRE KINDERGARTEN TEACHER Unavailable [phone] Paula Reza MD Unavailable Herman, Shahida Cummings APRN PRE KINDERGARTEN TEACHER Unavailable Un available Daylin Ludwig Unavailable [phone] Laurel Velasquez MD Unavailable [phone] Daylin Ludwig Unavailable [phone] Paula Reza MD Unavailable Porsha Michaels APRN PRE KINDERGARTEN TEACHER Unavailable [phone] Laurel Velasquez MD Unavailable [phone] Herman, Shahida Cummings APRN PRE KINDERGARTEN TEACHER Unavailable Un available Marilin Montaño PRE KINDERGARTEN TEACHER Unavailable [phone] Esha Dewitt MD Unavailable [phone] Heather Mosquera MD Unavailable Paula Reza MD Unavailable Esha Dewitt MD Unavailable [phone] Valdo Escamilla PA-C Unavailable Nohelia Abarca PA-C Unavailable [phone] Heather Mosquera MD Unavailable [phone] Fawad York MD Unavailable Encounter Details Date Type Department Care Team (Late st Contact Info) Description 07/03/2011 [facility] [address] [address] Mingo Aldana MD [facility] [address] [place] [address] Social History Tobacco Use Types [...] Out COVID-19 02/15/2020 02/15/2020 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 Rule Out COVID-19 01/05/2021 01/05/2021 01/06/2021 12:57 PM CDT ESBL 01/05/2021 01/05/2021 Rule Out COVID-19 06/30/2021 06/30/2021 07/01/2021 9:34 AM CDT Rule Out COVID-19 07/25/2021 07/25/2021 07/25/2021 8:02 PM CDT documented as of this encounter Care Teams Watermelon Harvesting Supervisor Relationship Specialty Start Date End Date Mingo Aldana MD PCP - General Family Practice 07/22/09 07/12/14 Shahida Sutton APRN PRE KINDERGARTEN TEACHER PCP - General Nurse Practitioner 08/17/14 08/04/21 Shahida Sutton APRN PRE KINDERGARTEN TEACHER PCP - Assigned PCP 07/12/14 05/07/18 Paula Reza MD [address] [place] [address] PCP - General Internal Medicine 08/05/21 Shahida Sutton APRN PRE KINDERGARTEN TEACHER Assigned PCP 07/12/14 09/30/21 Carolynn Ramon, KASIE Personal Advocate & Liaison (PAL) 12/17/18 08/07/21 [place] [address] [place] [address] Assigned Musculoskeletal Provider 12/26/19 08/21/20 Brady Lion MD Assigned Heart and Vascular Provider 12/26/19 08/14/20 Nima France PA-C [address] [place] [address] Assigned Surgical Provider 05/19/20 08/21/20 Camille Chandler PA-C [address] [place] [address] Assigned Neuroscience Provider 05/19/20 09/14/20 Anabela Barakat APRN CNP 1700 [place] [address] Assigned Heart and Vascular Provider 08/15/20 08/05/21 Nima France PA-C [address] [facility] 450 [place] [address] Assigned Musculoskeletal Provider 08/22/20 11/13/20 [place] [address] [place], [place] [address] Assigned Musculoskeletal Provider 11/14/20 12/04/20 Fawad York MD [address] [place], [place] [address] Assigned Musculoskeletal Provider 12/05/20 02/05/21 Roopa Almonte MD [address] [facility] 200 [place] [address] Endocrinology, Diabetes, and Metabolism 01/19/21 [place] [address] [facility] 300 [place] [address] Assigned Musculoskeletal Provider 02/06/21 09/16/21 Maryse Burton PA-C [address] [place] [address] Physician Hat Lining Blocker Dermatology 04/14/21 Marquita Starkey MD [address] [place] [address] Internal Medicine 05/06/21 05/06/21 Roopa Almonte MD [address] [facility] [address] [place] [address] Hospitalist Endocrinology, Diabetes, and Metabolism 05/30/21 Griffin Joshi MD [address] [place] [address] Cardiovascular Disease 07/25/21 Rina Magallon, RN Lead Crating And Moving Estimator 07/29/21 07/11/22 Griffin Joshi MD [address] [place] [address] Assigned Heart and Vascular Provider 08/06/21 10/07/21 Roopa Almonte MD [address] [place] [address] 200 [place], [place] [address] Assigned Endocrinology Provider 09/10/21 [place] [address] [facility] [place] [address] Assigned Musculoskeletal Provider 09/17/21 10/14/21 Lydia Bernstein PA-C [address] [place] [address] Assigned PCP 10/01/21 10/21/21 Rosa Maria Love CHW Community Health Worker 10/06/21 [place] [address] [place] [address] Assigned Musculoskeletal Provider 10/15/21 04/26/23 Paula Reza MD [address] [place] [address] Assigned PCP 10/22/21 12/23/21 Keerthi Miner APRN PRE KINDERGARTEN TEACHER [address] [place] [address] Assigned Heart and Vascular Provider 10/08/21 02/10/22 Shahida Sutton APRN PRE KINDERGARTEN TEACHER Assigned PCP 12/24/21 03/24/22 Porsha Michaels APRN PRE KINDERGARTEN TEACHER [address] [place] [address] Assigned Heart and Vascular Provider 02/11/22 05/12/22 Paula Reza MD [address] [place] [address] Assigned PCP 03/25/22 04/07/22 Shahida Sutton APRN PRE KINDERGARTEN TEACHER [address] [place] [address] Assigned PCP 04/08/22 06/30/22 Daylin Ludwig EP [facility] [address] [place] [address] Cardiac Rehabilitation Therapist 05/16/23 Laurel Velasquez MD [address] [place] [address] Assigned Heart and Vascular Provider 05/13/22 06/30/22 Daylin Ludwig EP [facility] [address] [place] [address] Cardiac Rehabilitation Therapist 06/08/22 06/09/23 Paula Reza MD [address] [facility] 200 [place], [place] [address] Assigned PCP 07/01/22 07/07/22 Porsha Michaels APRN PRE KINDERGARTEN TEACHER [address] [place] [address] Assigned Heart and Vascular Provider 07/01/22 07/07/22 Laurel Velasquez MD [address] [place], [place] [address] Assigned Heart and Vascular Provider 07/08/22 08/04/22 Shahida Sutton APRN PRE KINDERGARTEN TEACHER Assigned PCP 07/08/22 09/08/22 Marilin Montaño, PRE KINDERGARTEN TEACHER [address] [place] [address] Assigned Heart and Vascular Provider 08/05/22 Esha Dewitt MD [address] [place] [address] 36 [place], [place] [address] Gastroenterology 09/06/22 Heather Mosquera MD [address] [place] [address] Internal Medicine 09/06/22 Paula Reza MD [address] [facility] 200 [place] [address] Assigned PCP 09/09/22 01/05/23 Esha Dewitt MD 420 [facility] 36 [place], [place] [address] Assigned Gastroenterology Provider 09/23/22 Valdo Escamilla PA-C [address] [place] [address] Assigned Neuroscience Provider 09/30/22 Nohelia Abarca PA-C [address]50 [place] [address] Physician Hat Lining Blocker Gastroenterology 10/03/22 Heather Mosquera MD [address] [facility] 150 [place], [place] [address] Assigned PCP 01/06/23 Fawad York MD [address] [place], [place] [address] Assigned Musculoskeletal Provider 04/27/23 06/25/23 documented as of this encounter
--- OUTSIDE RECORDS SUMMARY | 2023-10-02 15:51 | XMS_ITS | Encounter Summary ---
Author Organization [facility] Address [address] [place] [address] Care Team Providers Care Mems Device Scientist Name Role Phone Mingo Aldana MD Primary Car e Provider Herman, Shahida Cummings APRN EMERGENCY ROOM RN Primary Care Provi ford Unavailable Herman, Shahida Cummings APRN EMERGENCY ROOM RN Unavailable Un available Herman, Shahida Cummings APRN EMERGENCY ROOM RN Unavailable Un available Carolynn Ramon RN Unavailable [phone] Augustine Callaway MD Unavailable Brady Lion MD Unavailable Un available Nima France-C Unavailable [phone] Camille Chandler PA-C Unavailable [phone] Anabela Barakat APRN EMERGENCY ROOM RN Unavailable Nima France-C Unavailable [phone] Basilio Morillo DO Unavailable [phone] Fawad York MD Unavailable [phone] Roopa Almonte MD Unavailable [phone] Augustine Callaway MD Unavailable Maryse Burton PA-C Unavailable Marquita Starkey MD Unavailable [phone] Roopa Almonte MD Unavailable [phone] Griffin Joshi MD Unavailable Rina Magallon RN Unavailable [phone] Paula Reza MD Primary Care Provider [phone] Griffin Joshi MD Unavailable Roopa Almonte MD Unavailable [phone] [facility] win DO Unavailable Lydia Bernstein PA-C Unavailable Rosa Maria Love Unavailable [phone] Augustine Callaway MD Unavailable Paula Reza MD Unavailable Keerthi Miner APRN EMERGENCY ROOM RN Unavailable Herman, Shahida Cummings APRN EMERGENCY ROOM RN Unavailable Un available Porsha Michaels APRN EMERGENCY ROOM RN Unavailable [phone] Paula Reza MD Unavailable Herman, Shahida Cummings APRN EMERGENCY ROOM RN Unavailable Un available Daylin Ludwig Unavailable [phone] Laurel Velasquez MD Unavailable [phone] Daylin Ludwig Unavailable [phone] Paula Reza MD Unavailable Porsha Michaels APRN EMERGENCY ROOM RN Unavailable [phone] Laurel Velasquez MD Unavailable [phone] Herman, Shahida Cummings APRN EMERGENCY ROOM RN Unavailable Un available Marilin Montaño EMERGENCY ROOM RN Unavailable [phone] Esha Dewitt MD Unavailable [phone] Heather Mosquera MD Unavailable [phone] Paula Reza MD Unavailable Esha Dewitt MD Unavailable [phone] Valdo Escamilla Deo PA-C Unavailable [phone] Rima Wilfredosima PA-C Unavailable [phone] Heather Mosquera MD Unavailable Fawad York MD Unavailable [phone] Reason for Visit * Reason Onset Date Comments Refill Request 03/18/2010 Vicodin Encounter Details Date Type Department Care Team (Late st Contact Info) Description 03/18/2010 [facility] [address] [address] Mingo Aldana MD [facility] [address] [place] [address] Refill Request (Vicodin) Social History [...] Milagros Denton RN - 03/18/2010 2:[address] Mingo Aldana: Please see Pt's request below. As stated, he has been taking Vicodin 3x per day some days. Last refill was on 02/21/2010 for a max dose of 2 tablets per day. Thank you, Milagros Denton RN SITION MGR * Telephone Encounter - Milagros Denton RN - 03/18/2010 2:14 PM [facility] Mauro Jared Terrell would like a refill of the following medications: hydrocodone-acetaminophen (NORCO) 10-325 MG per tablet [Mingo Aldana MD] Preferred pharmacy: [facility] Comment: Doctor,Per my Psych I have begun [...] my supply is low. Any questions, concerns [phone] SITION MGR documented in this encounter Plan of Treatment Not on file documented as of this encounter Visit Diagnoses Diagnosis Lumbago- Primary documented in this encounter Additional Health Concerns Infection Onset Date Last Indicated Resolved Time Rule Out COVID-19 02/15/2020 02/15/2020 02/16/2020 2:32 PM TRANSITION MGR Rule Out COVID-19 01/05/2021 01/05/2021 01/06/2021 12:57 PM CDT ESBL 01/05/2021 01/05/2021 Rule Out COVID-19 06/30/2021 06/30/2021 07/01/2021 9:34 AM CDT Rule Out COVID-19 07/25/2021 07/25/2021 07/25/2021 8:02 PM CDT documented as of this encounter Care Teams Mems Device Scientist Relationship Specialty Start Date End Date Mingo Aldana MD PCP - General Family Practice 07/22/09 07/12/14 Shahida Sutton APRN EMERGENCY ROOM RN PCP - General Nurse Practitioner 08/17/14 08/04/21 Shahida Sutton APRN EMERGENCY ROOM RN PCP - Assigned PCP 07/12/14 05/07/18 Paula Reza MD [address] [facility] [address] [place] [address] PCP - General Internal Medicine 08/05/21 Shahida Sutton APRN EMERGENCY ROOM RN Assigned PCP 07/12/14 09/30/21 Carolynn Ramon, KASIE Personal Advocate & Liaison (PAL) 12/17/18 08/07/21 [place] [address] [address] [facility] [address] [place] [address] Assigned Musculoskeletal Provider 12/26/19 08/21/20 Brady Lion MD Assigned Heart and Vascular Provider 12/26/19 08/14/20 Nima France PA-C [address] [facility] [address] [place] [address] Assigned Surgical Provider 05/19/20 08/21/20 Camille Chandler PA-C [address] [facility] [address] [place] [address] Assigned Neuroscience Provider 05/19/20 09/14/20 Anabela Barakat APRN EMERGENCY ROOM RN [address] [place] [address] Assigned Heart and Vascular Provider 08/15/20 08/05/21 Nima France PA-C [address] [place] [address] Assigned Musculoskeletal Provider 08/22/20 11/13/20 [place] [address] [facility] [place] [address] Assigned Musculoskeletal Provider 11/14/20 12/04/20 Fawad York MD [address] [place], [place] [address] Assigned Musculoskeletal Provider 12/05/20 02/05/21 Roopa Almonte MD [address] [facility] [address] [place] [address] Endocrinology, Diabetes, and Metabolism 01/19/21 [place] [address] [facility] [address] [place] [address] Assigned Musculoskeletal Provider 02/06/21 09/16/21 Maryse Burton PA-C [address] [place] [address] Physician Senior Net Application Developer Dermatology 04/14/21 Marquita Starkey MD [address] [place] [address] Internal Medicine 05/06/21 05/06/21 Roopa Almonte MD [address] [place] [address] Hospitalist Endocrinology, Diabetes, and Metabolism 05/30/21 Griffin Joshi MD [address] [facility] [address] [place] [address] Cardiovascular Disease 07/25/21 Rina Magallon, RN Lead Academic Assistant 07/29/21 07/11/22 Griffin Joshi MD [address] [facility] [address] [place] [address] Assigned Heart and Vascular Provider 08/06/21 10/07/21 Roopa Almonte MD [address] [place] [address] [address] [place], [place] [address] Assigned Endocrinology Provider 09/10/21 [place] [address] [facility] [place] [address] Assigned Musculoskeletal Provider 09/17/21 10/14/21 Lydia Bernstein PA-C [address] [facility] [address] [place] [address] Assigned PCP 10/01/21 10/21/21 Rosa Maria Love CHW Community Health Worker 10/06/21 [place] [address] [facility] [address] [place] [address] Assigned Musculoskeletal Provider 10/15/21 04/26/23 Paula Reza MD [address] [facility] [address] [place] [address] Assigned PCP 10/22/21 12/23/21 Keerthi Miner APRN EMERGENCY ROOM RN [address] [place] [address] Assigned Heart and Vascular Provider 10/08/21 02/10/22 Shahida Sutton APRN EMERGENCY ROOM RN Assigned PCP 12/24/21 03/24/22 Porsha Michaels FULLER BRUSH WORKER EMERGENCY ROOM RN [address] [place] [address] Assigned Heart and Vascular Provider 02/11/22 05/12/22 Paula Reza MD [address] [facility] [address] [place] [address] Assigned PCP 03/25/22 04/07/22 Shahida Sutton APRN EMERGENCY ROOM RN [address] [place] [address] Assigned PCP 04/08/22 06/30/22 Daylin Ludwig EP [facility] [address] [place] [address] Cardiac Rehabilitation Therapist 05/16/23 Laurel Velasquez MD [address] [place] [address] Assigned Heart and Vascular Provider 05/13/22 06/30/22 Daylin Ludwig EP [facility] [address] [place] [address] Cardiac Rehabilitation Therapist 06/08/22 06/09/23 Paula Reza MD [address] [place], [place] [address] Assigned PCP 07/01/22 07/07/22 Porsha Michaels APRN EMERGENCY ROOM RN [address] [place] [address] Assigned Heart and Vascular Provider 07/01/22 07/07/22 Laurel Velasquez MD [address] [place], [place] [address] Assigned Heart and Vascular Provider 07/08/22 08/04/22 Shahida Sutton APRN EMERGENCY ROOM RN Assigned PCP 07/08/22 09/08/22 Marilin Montaño, EMERGENCY ROOM RN [address] [place] [address] Assigned Heart and Vascular Provider 08/05/22 Esha Dewitt MD [address] [place] [address] Gastroenterology 09/06/22 Heather Mosquera MD [address] [place] [address] Internal Medicine 09/06/22 Paula Reza MD [address] [place], [place] [address] Assigned PCP 09/09/22 01/05/23 Esha Dewitt MD [address] [place] [address]17075 Assigned Gastroenterology Provider 09/23/22 Valdo Escamilla PA-C [address] [facility] [address] [place] [address] Assigned Neuroscience Provider 09/30/22 Nohelia Abarca PA-C [address] [place], [place] [address] Physician Senior Net Application Developer Gastroenterology 10/03/22 Heather Mosquera MD [address] [facility] [address] [place] [address] Assigned PCP 01/06/23 Fawad York MD [address] [place], [place] [address] Assigned Musculoskeletal Provider 04/27/23 06/25/23 documented as of this encounter
--- OUTSIDE RECORDS SUMMARY | 2023-10-02 15:51 | XMS_ITS | Encounter Summary ---
Author Organization [facility] Address [address] [place] [address] Care Team Providers Care Blow Mold Technician Name Role Phone Dixon Carson MD Primary Care Provider Mingo Aldana MD Primary Car e Provider Shahida Sutton PIPED POCKET MACHINE OPERATOR RETAIL SALES ASSOCIATE BILINGUAL Primary Care Provi ford Unavailable Herman, Shahida Cummings APRN RETAIL SALES ASSOCIATE BILINGUAL Unavailable Un available Herman, Shahida Cummings APRN RETAIL SALES ASSOCIATE BILINGUAL Unavailable Un available Carolynn Ramon RN Unavailable [phone] Augustine Callaway MD Unavailable Brady Lion MD Unavailable Un available Nima FranceC Unavailable [phone] Camille Chandler PA-C Unavailable [phone] Anabela Barakat APRN RETAIL SALES ASSOCIATE BILINGUAL Unavailable Nima FranceC Unavailable [phone] Basilio Morillo DO Unavailable [phone] Fawad York MD Unavailable [phone] Roopa Almonte MD Unavailable [phone] Augustine Callaway MD Unavailable Maryse Burton PA-C Unavailable Marquita Starkey MD Unavailable Roopa Almonte MD Unavailable [phone] Griffin Joshi MD Unavailable Rina Magallon RN Unavailable Paula Reza MD Primary Care Provider [phone] Griffin Joshi MD Unavailable Roopa Almonte MD Unavailable [facility] win DO Unavailable Lydia Bernstein PA-C Unavailable Rosa Maria Love Unavailable [phone] Augustine Callaway MD Unavailable Paula Reza MD Unavailable Keerthi Miner APRN RETAIL SALES ASSOCIATE BILINGUAL Unavailable Herman, Shahida Cumminsg APRN RETAIL SALES ASSOCIATE BILINGUAL Unavailable Un available Porsha Michaels APRN RETAIL SALES ASSOCIATE BILINGUAL Unavailable [phone] Paula Reza MD Unavailable Herman, Shahida Cummings APRN RETAIL SALES ASSOCIATE BILINGUAL Unavailable Un available Daylin Ludwig Unavailable [phone] Laurel Velasquez MD Unavailable Daylin Ludwig Unavailable [phone] Paula Reza MD Unavailable Porsha Michaels APRN RETAIL SALES ASSOCIATE BILINGUAL Unavailable [phone] Laurel Velasquez MD Unavailable Herman, Shahida Cummings APRN RETAIL SALES ASSOCIATE BILINGUAL Unavailable Un available Marilin Montaño RETAIL SALES ASSOCIATE BILINGUAL Unavailable Esha Dewitt MD Unavailable [phone] Heather Mosquera MD Unavailable Paula Reza MD Unavailable Esha Dewitt MD Unavailable [phone] Andi Valdo Desouza PA-C Unavailable [phone] Nohelia AbarcaC Unavailable [phone] Heather Mosquera MD Unavailable Fawad York MD Unavailable [phone] Encounter Details Date Type Department Care Team [...] at once, please submit to [facility]. I can be contact by phone at [phone] Please rx medications, pharmacy t'd up. Please notify patient when done. Either mychart or via phone. Re-route to [facility] when [place] is done. Thank you. 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 REPAIR TECHNICIAN Rule Out COVID-19 01/05/2021 01/05/2021 01/06/2021 12:57 PM CDT ESBL 01/05/2021 01/05/2021 Rule Out COVID-19 06/30/2021 06/30/2021 07/01/2021 9:34 AM CDT Rule Out COVID-19 07/25/2021 07/25/2021 07/25/2021 8:02 PM CDT documented as of this encounter Care Teams Blow Mold Technician Relationship Specialty Start Date End Date Dixon Carson MD PCP - General 08/10/03 07/21/09 Mingo Aldana MD PCP - General Family Practice 07/22/09 07/12/14 Shahida Sutton APRN RETAIL SALES ASSOCIATE BILINGUAL PCP - General Nurse Practitioner 08/17/14 08/04/21 Shahida Sutton APRN RETAIL SALES ASSOCIATE BILINGUAL PCP - Assigned PCP 07/12/14 05/07/18 Paula Reza MD [address] [address] PCP - General Internal Medicine 08/05/21 Shahida Sutton APRN RETAIL SALES ASSOCIATE BILINGUAL Assigned PCP 07/12/14 09/30/21 Carolynn Ramon, KASIE Personal Advocate & Liaison (PAL) 12/17/18 08/07/21 [place] [address] [place] [address] Assigned Musculoskeletal Provider 12/26/19 08/21/20 Brady Lion MD Assigned Heart and Vascular Provider 12/26/19 08/14/20 Nima France PA-C [address] [place] [address] Assigned Surgical Provider 05/19/20 08/21/20 Camille Chandler PA-C [address] [facility] [address] [place] [address] Assigned Neuroscience Provider 05/19/20 09/14/20 Anabela Barakat APRN CNP [address] [place] [address] Assigned Heart and Vascular Provider 08/15/20 08/05/21 Nima France PA-C [address] [facility] [address] [place], [place] [address] Assigned Musculoskeletal Provider 08/22/20 11/13/20 [place] [address] [facility] [place] [address] Assigned Musculoskeletal Provider 11/14/20 12/04/20 Fawad York MD [address] [place] [address] Assigned Musculoskeletal Provider 12/05/20 02/05/21 Roopa Almonte MD [address] [facility] [address] [place] [address] Endocrinology, Diabetes, and Metabolism 01/19/21 [place] [address] [facility] [address] [place] [address] Assigned Musculoskeletal Provider 02/06/21 09/16/21 Maryse Burton PA-C [address] [place] [address] Physician Director Clinical Data Dermatology 04/14/21 Marquita Starkey MD [address] [facility] [address] [place] [address] Internal Medicine 05/06/21 05/06/21 Roopa Almonte MD [address] [facility] [address] [place] [address] Hospitalist Endocrinology, Diabetes, and Metabolism 05/30/21 Griffin Joshi MD [address] [place] [address] Cardiovascular Disease 07/25/21 Rina Magallon, RN Lead Busser 07/29/21 07/11/22 Griffin Joshi MD [address] [place] [address] Assigned Heart and Vascular Provider 08/06/21 10/07/21 Roopa Almonte MD [address] [place] [address] 200 [place] [address] Assigned Endocrinology Provider 09/10/21 [place] [address] [facility] [place] [address] Assigned Musculoskeletal Provider 09/17/21 10/14/21 Lydia Bernstein PA-C [address] [place] [address] Assigned PCP 10/01/21 10/21/21 Rosa Maria Love [facility] Community Health Worker 10/06/21 [place] [address] [facility] [address] [place], [place] [address] Assigned Musculoskeletal Provider 10/15/21 04/26/23 Paula Reza MD [address] [facility] [facility] [address] [place], [place] [address] Assigned PCP 10/22/21 12/23/21 Keerthi Miner APRN RETAIL SALES ASSOCIATE BILINGUAL [address] [place] [address] Assigned Heart and Vascular Provider 10/08/21 02/10/22 Shahida Sutton APRN RETAIL SALES ASSOCIATE BILINGUAL Assigned PCP 12/24/21 03/24/22 Porsha Michaels APRN RETAIL SALES ASSOCIATE BILINGUAL [address] [place] [address] Assigned Heart and Vascular Provider 02/11/22 05/12/22 Paula Reza MD [address] [place], [place] [address] Assigned PCP 03/25/22 04/07/22 Shahida Sutton APRN RETAIL SALES ASSOCIATE BILINGUAL [address] [place] [address] Assigned PCP 04/08/22 06/30/22 Daylin Ludwig EP [facility] [address] [place] [address] Cardiac Rehabilitation Therapist 05/16/23 Laurel Velasquez MD [address] [place] [address] Assigned Heart and Vascular Provider 05/13/22 06/30/22 Daylin Ludwig, MIKI [facility] [address] [place] [address] Cardiac Rehabilitation Therapist 06/08/22 06/09/23 Paula Reza MD [address] [place], [place] [address] Assigned PCP 07/01/22 07/07/22 Porsha Michaels APRN RETAIL SALES ASSOCIATE BILINGUAL [address] [place] [address] Assigned Heart and Vascular Provider 07/01/22 07/07/22 Laurel Velasquez MD [address] [place], [place] [address] Assigned Heart and Vascular Provider 07/08/22 08/04/22 Shahida Sutton PIPED POCKET MACHINE OPERATOR RETAIL SALES ASSOCIATE BILINGUAL Assigned PCP 07/08/22 09/08/22 Marilin Montaño, RETAIL SALES ASSOCIATE BILINGUAL [address] [place] [address] Assigned Heart and Vascular Provider 08/05/22 Esha Dewitt MD [address] [address] Gastroenterology 09/06/22 Heather Mosquera MD [address] [place] [address] Internal Medicine 09/06/22 Paula Reza MD [address] [facility] [address] [place] [address] Assigned PCP 09/09/22 01/05/23 Esha Dewitt MD [address] [place] [address] Assigned Gastroenterology Provider 09/23/22 Valdo Escamilla PA-C [address] [facility] [place] [address] Assigned Neuroscience Provider 09/30/22 Nohelia Abarca PA-C [address] [place], [place] [address] Physician Director Clinical Data Gastroenterology 10/03/22 Heather Mosquera MD [address] [address] Assigned PCP 01/06/23 Fawad York MD [address] [place], [place] [address] Assigned Musculoskeletal Provider 04/27/23 06/25/23 documented as of this encounter
--- OUTSIDE RECORDS SUMMARY | 2023-10-02 15:51 | XMS_ITS | Encounter Summary ---
Author Organization [place] Address [address] [place] [address] Care Team Providers Care Obgyn Specialist Name Role Phone Dixon Carson MD Primary Care Provider Mingo Aldana MD Primary Car e Provider Shahida Sutton SUPERVISOR ESTIMATOR AND DRAFTER SHELTER CASE MANAGER Primary Care Provi ford Unavailable Herman, Shahida Cummings APRN SHELTER CASE MANAGER Unavailable Un available Herman, Shahida Cummings APRN SHELTER CASE MANAGER Unavailable Un available Carolynn Ramon RN Unavailable [phone] Augustine Callaway MD Unavailable Brady Lion MD Unavailable Un available Nima FranceC Unavailable [phone] Camille Chandler PA-C Unavailable [phone] Anabela Barakat APRN SHELTER CASE MANAGER Unavailable Nima FranceC Unavailable [phone] Basilio Morillo DO Unavailable [phone] Fawad York MD Unavailable [phone] Roopa Almonte MD Unavailable [phone] Augustine Callaway MD Unavailable Maryse Burton [...] Paula Reza MD Unavailable Keerthi Miner APRN SHELTER CASE MANAGER Unavailable Herman, Shhaida Cummings APRN SHELTER CASE MANAGER Unavailable Un available Porsha Michaels APRN SHELTER CASE MANAGER Unavailable [phone] Paula Reza MD Unavailable Herman, Shahida Cummings APRN SHELTER CASE MANAGER Unavailable Un available Daylin Ludwig Unavailable [phone] Laurel Velasquez MD Unavailable Daylin Ludwig Unavailable [phone] Paula Reza MD Unavailable Porsha Michaels APRN SHELTER CASE MANAGER Unavailable [phone] Laurel Velasquez MD Unavailable Herman, Shahida Cummings APRN SHELTER CASE MANAGER Unavailable Un available Marilin Montaño SHELTER CASE MANAGER Unavailable Esha Dewitt MD Unavailable [phone] Heather Mosquera MD Unavailable [phone] Paula Reza MD Unavailable Esha Dewitt MD Unavailable [phone] Ayserick Valdo Desouza PA-C Unavailable Nohelia Abarca PA-C Unavailable [phone] Heather Mosquera MD Unavailable Fawad York MD Unavailable Reason for Visit * Reason Onset Date Comments Refill Request 03/09/2009 Encounter Details Date Type Department Care Team (Late st Contact Info) Description 03/09/2009 MyC Valorie M [address] [address] Dixon Carson MD [address] [address] Refill Request Social History Tobacco Use Types [...] week, then 2 bid. Will route to [place] for signing. Brigida Hyatt RN D BANK CALENDAR CONTROL CLERK * Telephone Encounter - EdmarBrigida - 03/09/2009 2:57 PM [facility] Mauro Terrell would like a refill of the following medications: TOPAMAX 25 MG OR TABS [Dixon Carson MD] Preferred pharmacy: [facility] Comment: I called this in to [facility] over the weekend, but at the time I didn't realize I didn't have any refills. In any case, I am now completely out and haven't heard anything and hope to get this approved as soon as possible D BANK CALENDAR CONTROL CLERK documented in this encounter Plan of Treatment Not on file documented as of this encounter Visit Diagnoses Diagnosis Migraine headaches- Primary Migraine, unspecified, without mention of intractable migraine without mention of status migrainosus documented in this encounter Additional Health Concerns Infection Onset Date Last Indicated Resolved Time Rule Out COVID-19 02/15/2020 02/15/2020 02/16/2020 2:32 PM BLOOD BANK CALENDAR CONTROL CLERK Rule Out COVID-19 01/05/2021 01/05/2021 01/06/2021 12:57 PM CDT ESBL 01/05/2021 01/05/2021 Rule Out COVID-19 06/30/2021 06/30/2021 07/01/2021 9:34 AM CDT Rule Out COVID-19 07/25/2021 07/25/2021 07/25/2021 8:02 PM CDT documented as of this encounter Care Teams Obgyn Specialist Relationship Specialty Start Date End Date Dixon Carson MD PCP - General 08/10/03 07/21/09 Mingo Aldana MD PCP - General Family Practice 07/22/09 07/12/14 Shahida Sutton APRN SHELTER CASE MANAGER PCP - General Nurse Practitioner 08/17/14 08/04/21 Shahida Sutton APRN SHELTER CASE MANAGER PCP - Assigned PCP 07/12/14 05/07/18 Paula Reza MD [address] [facility] [address] [place] [address] PCP - General Internal Medicine 08/05/21 Shahida Sutton APRN SHELTER CASE MANAGER Assigned PCP 07/12/14 09/30/21 Carolynn Ramon RN Personal Advocate & Liaison (PAL) 12/17/18 08/07/21 [place] [address] [place] [address] Assigned Musculoskeletal Provider 12/26/19 08/21/20 Brady Lion MD Assigned Heart and Vascular Provider 12/26/19 08/14/20 Nima France PA-C [address] [place] [address] Assigned Surgical Provider 05/19/20 08/21/20 Camille Chandler PA-C [address] [facility] [address] [place] [address] Assigned Neuroscience Provider 05/19/20 09/14/20 Anabela Barakat APRN SHELTER CASE MANAGER [address] [place] [address] Assigned Heart and Vascular Provider 08/15/20 08/05/21 Nima France PA-C [address] [place] [address] Assigned Musculoskeletal Provider 08/22/20 11/13/20 [place] [address] [facility] [place] [address] Assigned Musculoskeletal Provider 11/14/20 12/04/20 Fawad York MD [address] [place] [address] Assigned Musculoskeletal Provider 12/05/20 02/05/21 Roopa Almonte MD [address] [facility] [address] [place], [place] [address] Endocrinology, Diabetes, and Metabolism 01/19/21 [place] [address] [facility] [address] [place] [address] Assigned Musculoskeletal Provider 02/06/21 09/16/21 Maryse Burton, PA-C [address] [place] [address] Physician Traveling Storekeeper Dermatology 04/14/21 Marquita Starkey MD [address] [facility] [address] [place] [address] Internal Medicine 05/06/21 05/06/21 Roopa Almonte MD [address] [facility] [address] [place] [address] Hospitalist Endocrinology, Diabetes, and Metabolism 05/30/21 Griffin Joshi MD [address] [facility] [address] [place] [address] Cardiovascular Disease 07/25/21 Rina Magallon, RN Lead Gunstock Spray Unit Feeder 07/29/21 07/11/22 Griffin Joshi MD [address] [place] [address] Assigned Heart and Vascular Provider 08/06/21 10/07/21 Roopa Almonte MD [address] [facility] [address] [place], [place] [address] Assigned Endocrinology Provider 09/10/21 [place] [address] [facility] [place] [id number] Assigned Musculoskeletal Provider 09/17/21 10/14/21 Lydia Bernstein, TRACEY [address] [place] [address] Assigned PCP 10/01/21 10/21/21 Rosa Maria Love CHW Community Health Worker 10/06/21 [place] [address] [place] [address] Assigned Musculoskeletal Provider 10/15/21 04/26/23 Paula Reza MD [address] [facility] [address] [place] [address] Assigned PCP 10/22/21 12/23/21 Keerthi Miner APRN SHELTER CASE MANAGER [address] [place] [address] Assigned Heart and Vascular Provider 10/08/21 02/10/22 Shahida Sutton APRN SHELTER CASE MANAGER Assigned PCP 12/24/21 03/24/22 Porsha Michaels APRN SHELTER CASE MANAGER [address] [place] [address] Assigned Heart and Vascular Provider 02/11/22 05/12/22 Paula Reza MD [address] [place] [address] Assigned PCP 03/25/22 04/07/22 Shahida Sutton APRN SHELTER CASE MANAGER [address] [place] [address] Assigned PCP 04/08/22 06/30/22 Daylin Ludwig, EP [facility] [address] [place] [address] Cardiac Rehabilitation Therapist 05/16/23 Laurel Velasquez MD [address] [place] [address] Assigned Heart and Vascular Provider 05/13/22 06/30/22 Daylin Ludwig, EP [facility] [address] [place] [address] Cardiac Rehabilitation Therapist 06/08/22 06/09/23 Paula Reza MD [address] [place] [address] Assigned PCP 07/01/22 07/07/22 Porsha Michaels APRN SHELTER CASE MANAGER [address] [place] [address] Assigned Heart and Vascular Provider 07/01/22 07/07/22 Laurel Velasquez MD [address] [place] [address] Assigned Heart and Vascular Provider 07/08/22 08/04/22 Shahida Sutton APRN SHELTER CASE MANAGER Assigned PCP 07/08/22 09/08/22 Marilin Montaño, SHELTER CASE MANAGER [address] [place] [address] Assigned Heart and Vascular Provider 08/05/22 Esha Dewitt MD [address] [facility] [address] [place] [address] Gastroenterology 09/06/22 Heather Mosquera MD [address] [place] [address] Internal Medicine 09/06/22 Paula Reza MD [address] [facility] [address] [place], [place] [address] Assigned PCP 09/09/22 01/05/23 Esha Dewitt MD [address] [facility] [address] [place] [address] Assigned Gastroenterology Provider 09/23/22 Valdo Escamilla PA-C [address] [facility] [address] [place] [address] Assigned Neuroscience Provider 09/30/22 Nohelia Abarca PA-C [address] [place], [place] [address] Physician Traveling Storekeeper Gastroenterology 10/03/22 Heather Mosquera MD [address] [facility] [address] [facility] [address] [place] [address] Assigned PCP 01/06/23 Fawad York MD [address] [place], [place] [address] Assigned Musculoskeletal Provider 04/27/23 06/25/23 documented as of this encounter
--- OUTSIDE RECORDS SUMMARY | 2023-10-02 15:51 | XMS_ITS | Encounter Summary ---
Author Organization [facility] Address [address] [place] [address] Care Team Providers Care Appliances Sample Maker Name Role Phone Mingo Aldana MD Primary Car e Provider Herman, Shahida Cummings APRN COMMUNITY HEALTH SPECIALIST Primary Care Provi ford Unavailable Herman, Shahida Cummings APRN COMMUNITY HEALTH SPECIALIST Unavailable Un available Herman, Shahida Cummings APRN COMMUNITY HEALTH SPECIALIST Unavailable Un available Carolynn Ramon RN Unavailable [phone] Augustine Callaway MD Unavailable Brady Lion MD Unavailable Un available Nima France-C Unavailable [phone] Camille Chandler PA-C Unavailable [phone] Anabela Barakat APRN COMMUNITY HEALTH SPECIALIST Unavailable Nima France-C Unavailable [phone] Basilio Morillo DO Unavailable [phone] Fawad York MD Unavailable [phone] Roopa Almonte MD Unavailable [phone] Augustine Callaway MD Unavailable Maryse Burton PA-C Unavailable Marquita Starkey MD Unavailable [phone] Roopa Almonte MD Unavailable [phone] Griffin Joshi MD Unavailable Rina Magallon RN Unavailable [phone] Paula Reza MD Primary Care Provider [phone] Griffin Joshi MD Unavailable Roopa Almonte MD Unavailable [phone] [facility] center[facility] win DO Unavailable Lydia Bernstein PA-C Unavailable Rosa Maria Love Unavailable [phone] Augustine Callaway MD Unavailable Paula Reza MD Unavailable Keerthi Miner APRN COMMUNITY HEALTH SPECIALIST Unavailable Herman, Shahida Cummings APRN COMMUNITY HEALTH SPECIALIST Unavailable Un available Porsha Michaels APRN COMMUNITY HEALTH SPECIALIST Unavailable [phone] Paula Reza MD Unavailable Herman, Shahida Cummings APRN COMMUNITY HEALTH SPECIALIST Unavailable Un available Daylin Ludwig Unavailable [phone] Laurel Velasquez MD Unavailable [phone] Daylin Ludwig Unavailable [phone] Paula Reza MD Unavailable Porsha Michaels APRN COMMUNITY HEALTH SPECIALIST Unavailable [phone] Laurel Velasquez MD Unavailable [phone] Herman, Shahida Cummings APRN COMMUNITY HEALTH SPECIALIST Unavailable Un available Marilin Montaño COMMUNITY HEALTH SPECIALIST Unavailable [phone] Esha Dewitt MD Unavailable [phone] Heather Mosquera MD Unavailable [phone] Paula Reza MD Unavailable Esha Dewitt MD Unavailable [phone] Valdo Escamilla PA-C Unavailable Nohelia Abarca PA-C Unavailable [phone] Heather Mosquera MD Unavailable [phone] Fawad York MD Unavailable [phone] Reason for Visit * Reason Onset Date Comments Refill Request 10/19/2009 Encounter Details Date Type Department Care Team (Late st Contact Info) Description 10/19/2009 MyC Refill [address] [address] Mingo Aldana MD [facility] [address] [place] [address] Refill Request Social History Tobacco [...] Out COVID-19 02/15/2020 02/15/2020 02/16/2020 2:32 PM BRILLIANDEER LOPPER Rule Out COVID-19 01/05/2021 01/05/2021 01/06/2021 12:57 PM CDT ESBL 01/05/2021 01/05/2021 Rule Out COVID-19 06/30/2021 06/30/2021 07/01/2021 9:34 AM CDT Rule Out COVID-19 07/25/2021 07/25/2021 07/25/2021 8:02 PM CDT documented as of this encounter Care Teams Appliances Sample Maker Relationship Specialty Start Date End Date Mingo Aldana MD PCP - General Family Practice 07/22/09 07/12/14 Shahida Sutton APRN COMMUNITY HEALTH SPECIALIST PCP - General Nurse Practitioner 08/17/14 08/04/21 Shahida Sutton APRN COMMUNITY HEALTH SPECIALIST PCP - Assigned PCP 07/12/14 05/07/18 Paula Reza MD [address] [place], [place] [address] PCP - General Internal Medicine 08/05/21 Shahida Sutton APRN COMMUNITY HEALTH SPECIALIST Assigned PCP 07/12/14 09/30/21 Carolynn Ramon, KASIE Personal Advocate & Liaison (PAL) 12/17/18 08/07/21 [place] [address] [place] [address] Assigned Musculoskeletal Provider 12/26/19 08/21/20 Brady Lion MD Assigned Heart and Vascular Provider 12/26/19 08/14/20 Nima France PA-C [address] [place] [address] Assigned Surgical Provider 05/19/20 08/21/20 Camille Chandler PA-C [address] [facility] [address] [place] [address] Assigned Neuroscience Provider 05/19/20 09/14/20 Anabela Barakat APRN CNP [address] [place] [address] Assigned Heart and Vascular Provider 08/15/20 08/05/21 Nima France PA-C 6545 [facility] 450 [place] [address] Assigned Musculoskeletal Provider 08/22/20 11/13/20 [place] [address] [place], [place] [address] Assigned Musculoskeletal Provider 11/14/20 12/04/20 Fawad York MD [address] [place], [place] [address] Assigned Musculoskeletal Provider 12/05/20 02/05/21 Roopa Almonte MD [address] [facility] 200 [place] [address] Endocrinology, Diabetes, and Metabolism 01/19/21 [place] [address] [facility] [address] [place] [address] Assigned Musculoskeletal Provider 02/06/21 09/16/21 Maryse Burton PA-C [address] [facility] [place] [address] Physician Fire Pilot Dermatology 04/14/21 Marquita Starkey MD [address] [facility] 200 [place] [address] Internal Medicine 05/06/21 05/06/21 Roopa Almonte MD [address] [facility] [address] [place] [address] Hospitalist Endocrinology, Diabetes, and Metabolism 05/30/21 Griffin Joshi MD [address] [place] [address] Cardiovascular Disease 07/25/21 Rina Magallon, RN Lead Sports Internship 07/29/21 07/11/22 Griffin Joshi MD [address] [place] [address] Assigned Heart and Vascular Provider 08/06/21 10/07/21 Roopa Almonte MD [address] [facility] 200 [place] [address] Assigned Endocrinology Provider 09/10/21 [place] [address] [facility] [place] [address] Assigned Musculoskeletal Provider 09/17/21 10/14/21 Lydia Bernstein PA-C [address] [place] [address] Assigned PCP 10/01/21 10/21/21 Rosa Maria Love, [facility] Community Health Worker 10/06/21 [place] [address] [place] [address] Assigned Musculoskeletal Provider 10/15/21 04/26/23 Paula Reza MD [address] [place] [address] Assigned PCP 10/22/21 12/23/21 Keerthi Miner APRN COMMUNITY HEALTH SPECIALIST [address] [place] [address] Assigned Heart and Vascular Provider 10/08/21 02/10/22 Shahida Sutton APRN COMMUNITY HEALTH SPECIALIST Assigned PCP 12/24/21 03/24/22 Porsha Michaels APRN COMMUNITY HEALTH SPECIALIST [address] [place] [address] Assigned Heart and Vascular Provider 02/11/22 05/12/22 Paula Reza MD [address] [facility] [address] [place] [address] Assigned PCP 03/25/22 04/07/22 Shahida Sutton APRN COMMUNITY HEALTH SPECIALIST [address] [place] [place] [address] Assigned PCP 04/08/22 06/30/22 Daylin Ludwig EP [facility] [address] [place] [address] Cardiac Rehabilitation Therapist 05/16/23 Laurel Velasquez MD [address] [place] [place] [address] Assigned Heart and Vascular Provider 05/13/22 06/30/22 Daylin Ludwig EP [facility] [address] [place] [place] [address] Cardiac Rehabilitation Therapist 06/08/22 06/09/23 Paula Reza MD [address] [facility] [address] [place] [address] Assigned PCP 07/01/22 07/07/22 Porsha Michaels APRN COMMUNITY HEALTH SPECIALIST [address] [place] [address] Assigned Heart and Vascular Provider 07/01/22 07/07/22 Laurel Velasquez MD [address] [place] [address] Assigned Heart and Vascular Provider 07/08/22 08/04/22 Shahida Sutton APRN COMMUNITY HEALTH SPECIALIST Assigned PCP 07/08/22 09/08/22 Marilin Montaño, COMMUNITY HEALTH SPECIALIST [address] [place] [address] Assigned Heart and Vascular Provider 08/05/22 Esha Dewitt MD [address] [place] [address] 36 [place], [place] [address] Gastroenterology 09/06/22 Heather Mosquera MD [address] [place] [address] Internal Medicine 09/06/22 Paula Reza MD [address] [facility] 200 [place] [address] Assigned PCP 09/09/22 01/05/23 Esha Dewitt MD 420 [facility] 36 [place] [address] Assigned Gastroenterology Provider 09/23/22 Valdo Escamilla PA-C [address] [facility] [address] [place] [address] Assigned Neuroscience Provider 09/30/22 Nohelia Abarca PA-C [address] [place] [address] Physician Fire Pilot Gastroenterology 10/03/22 Heather Mosquera MD [address] [place] [address] Assigned PCP 01/06/23 Fawad York MD [address] [place], [place] [address] Assigned Musculoskeletal Provider 04/27/23 06/25/23 documented as of this encounter
--- OUTSIDE RECORDS SUMMARY | 2023-10-02 15:51 | XMS_ITS | Encounter Summary ---
Author Organization [facility] Address [address] [place] [address] Care Team Providers Care Crew Supervisor Name Role Phone Mingo Aldana MD Primary Car e Provider Herman, Shahida Cummings APRN UTILITIES SERVICE INVESTIGATOR Primary Care Provi ford Unavailable Herman, Shahida Cummings APRN UTILITIES SERVICE INVESTIGATOR Unavailable Un available Herman, Shahida Cummings APRN UTILITIES SERVICE INVESTIGATOR Unavailable Un available Carolynn Ramon RN Unavailable [phone] Augustine Callaway MD Unavailable Brady Lion MD Unavailable Un available Nima France-C Unavailable [phone] Camille Chandler PA-C Unavailable [phone] Anabela Barakat APRN UTILITIES SERVICE INVESTIGATOR Unavailable Nima France-C Unavailable [phone] Basilio Morillo DO Unavailable [phone] Fawad York MD Unavailable [phone] Roopa Almonte MD Unavailable [phone] Augustine Callaway MD Unavailable Maryse Burton PA-C Unavailable Marquita Starkey MD Unavailable [phone] Roopa Almonte MD Unavailable [phone] Griffin Joshi MD Unavailable Rina Magallon RN Unavailable [phone] Paula Reza MD Primary Care Provider [phone] Griffin Joshi MD Unavailable Roopa Almonte MD Unavailable [phone] [facility] win DO Unavailable Lydia Bernstein PA-C Unavailable Rosa Maria Love Unavailable [phone] Augustine Callaway MD Unavailable Paula Reza MD Unavailable Keerthi Miner APRN UTILITIES SERVICE INVESTIGATOR Unavailable Herman, Shaihda Cmumings APRN UTILITIES SERVICE INVESTIGATOR Unavailable Un available Porsha Michaels APRN UTILITIES SERVICE INVESTIGATOR Unavailable [phone] Paula Reza MD Unavailable Herman, Shahida Cummings APRN UTILITIES SERVICE INVESTIGATOR Unavailable Un available Daylin Ludwig Unavailable [phone] Laurel Velasquez MD Unavailable [phone] Daylin Ludwig Unavailable [phone] Paula Reza MD Unavailable Porsha Michaels APRN UTILITIES SERVICE INVESTIGATOR Unavailable [phone] Laurel Velasquez MD Unavailable [phone] Herman, Shahida Cummings APRN UTILITIES SERVICE INVESTIGATOR Unavailable Un available Marilin Montaño UTILITIES SERVICE INVESTIGATOR Unavailable [phone] Esha Dewitt MD Unavailable [phone] Heather Mosquera MD Unavailable Paula Reza MD Unavailable Esha Dewitt MD Unavailable [phone] Valdo Escamilla PA-C Unavailable [phone] Nohelia Abarca PA-C Unavailable [phone] Heather Mosquera MD Unavailable [phone] Fawad York MD Unavailable Encounter Details Date Type Department Care Team (Late st Contact Info) Description 06/10/2010 [facility] [id number] [place] [id number] [place]jas [place] [id number] [place] [id number] Social History Tobacco Use Types Packs/Day [...] Out COVID-19 02/15/2020 02/15/2020 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/2020 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 Rule Out COVID-19 01/05/2021 01/05/2021 01/06/2021 12:57 PM CDT ESBL 01/05/2021 01/05/2021 Rule Out COVID-19 06/30/2021 06/30/2021 07/01/2021 9:34 AM CDT Rule Out COVID-19 07/25/2021 07/25/2021 07/25/2021 8:02 PM CDT documented as of this encounter Care Teams Crew Supervisor Relationship Specialty Start Date End Date Mingo Aldana MD PCP - General Family Practice 07/22/09 07/12/14 Shahida Sutton APRN UTILITIES SERVICE INVESTIGATOR PCP - General Nurse Practitioner 08/17/14 08/04/21 Shahida Sutton APRN UTILITIES SERVICE INVESTIGATOR PCP - Assigned PCP 07/12/14 05/07/18 Paula Reza MD [address] [place], [place] [id number] PCP - General Internal Medicine 08/05/21 Shahida Sutton APRN UTILITIES SERVICE INVESTIGATOR Assigned PCP 07/12/14 09/30/21 Carolynn Ramon, KASIE Personal Advocate & Liaison (PAL) 12/17/18 08/07/21 [place] [address] [place], [place] [address] Assigned Musculoskeletal Provider 12/26/19 08/21/20 Brady Lion MD Assigned Heart and Vascular Provider 12/26/19 08/14/20 Nima France PA-C [address] [place] [id number] Assigned Surgical Provider 05/19/20 08/21/20 Camille Chandler PA-C [address] [place] [id number] Assigned Neuroscience Provider 05/19/20 09/14/20 Anabela Barakat APRN CNP [address] [place] [address] Assigned Heart and Vascular Provider 08/15/20 08/05/21 Nima France PA-C [address]45 [facility] [address] [place] [address] Assigned Musculoskeletal Provider 08/22/20 11/13/20 [place] [address] [place] [address] Assigned Musculoskeletal Provider 11/14/20 12/04/20 Fawad York MD [address] [place] [address] Assigned Musculoskeletal Provider 12/05/20 02/05/21 Roopa Almonte MD [address] [facility] [address] [place] [address] Endocrinology, Diabetes, and Metabolism 01/19/21 [place] [address] [facility] [address] [place] [address] Assigned Musculoskeletal Provider 02/06/21 09/16/21 Maryse Burton PA-C [address] [place] [address] Physician Director Of Anesthesia Services Dermatology 04/14/21 Marquita Starkey MD [address] [facility] [address] [place] [address] Internal Medicine 05/06/21 05/06/21 Roopa Almonte MD [address] [facility] [address] [place] [address] Hospitalist Endocrinology, Diabetes, and Metabolism 05/30/21 Griffin Joshi MD [address] [place] [address] Cardiovascular Disease 07/25/21 Rina Magallon, RN Lead Fertilizer Applicator 07/29/21 07/11/22 Griffin Joshi MD [address] [place] [id number] Assigned Heart and Vascular Provider 08/06/21 10/07/21 Roopa Almonte MD [address] [facility] [address] [place], [place] [address] Assigned Endocrinology Provider 09/10/21 [place] [address] [facility] [place] [address] Assigned Musculoskeletal Provider 09/17/21 10/14/21 Lydia Bernstein PA-C [address] [place] [id number] Assigned PCP 10/01/21 10/21/21 Rosa Maria Love CHW Community Health Worker 10/06/21 [place] [address] [place] [address] Assigned Musculoskeletal Provider 10/15/21 04/26/23 Paula Reza MD [address] [place] [address] Assigned PCP 10/22/21 12/23/21 Keerthi Miner APRN UTILITIES SERVICE INVESTIGATOR [address] [place] [address] Assigned Heart and Vascular Provider 10/08/21 02/10/22 Shahida Sutton APRN UTILITIES SERVICE INVESTIGATOR Assigned PCP 12/24/21 03/24/22 Porsha Michaels APRN UTILITIES SERVICE INVESTIGATOR [address] [place] [address] Assigned Heart and Vascular Provider 02/11/22 05/12/22 Paula Reza MD [address] [place] [address] Assigned PCP 03/25/22 04/07/22 Shahida Sutton APRN UTILITIES SERVICE INVESTIGATOR [address] [place] [address] Assigned PCP 04/08/22 06/30/22 Daylin Ludwig EP [facility] [address] [place] [address] Cardiac Rehabilitation Therapist 05/16/23 Laurel Velasquez MD [address] [place] [address] Assigned Heart and Vascular Provider 05/13/22 06/30/22 Daylin Ludwig EP [facility] [address] [place] [address] Cardiac Rehabilitation Therapist 06/08/22 06/09/23 Paula Reza MD [address] [facility] [address] [place], [place] [address] Assigned PCP 07/01/22 07/07/22 Porsha Michaels APRN UTILITIES SERVICE INVESTIGATOR [address] [place] [address] Assigned Heart and Vascular Provider 07/01/22 07/07/22 Laurel Velasquez MD [address] [place] [address] Assigned Heart and Vascular Provider 07/08/22 08/04/22 Shahida Sutton APRN UTILITIES SERVICE INVESTIGATOR Assigned PCP 07/08/22 09/08/22 Marilin Montaño, UTILITIES SERVICE INVESTIGATOR [address] [place] [address] Assigned Heart and Vascular Provider 08/05/22 Esha Dewitt MD [address] [facility] [address] [place], [place] [address] Gastroenterology 09/06/22 Heather Mosquera MD [address] [place] [address] Internal Medicine 09/06/22 Paula Reza MD [address] [place] [address] Assigned PCP 09/09/22 01/05/23 Esha Dewitt MD [address] [facility] 36 [place], [place] [address] Assigned Gastroenterology Provider 09/23/22 Valdo Escamilla PA-C [address] [facility] [address] [place], [place] [address] Assigned Neuroscience Provider 09/30/22 Nohelia Abarca PA-C [address] [place], [place] [address] Physician Director Of Anesthesia Services Gastroenterology 10/03/22 Heather Mosquera MD [address] [place], [place] [address] Assigned PCP 01/06/23 Fawad York MD [address] [place], [place] [address] Assigned Musculoskeletal Provider 04/27/23 06/25/23 documented as of this encounter
--- OUTSIDE RECORDS SUMMARY | 2023-10-02 15:51 | XMS_ITS | Encounter Summary ---
Author Organization [facility] Address [address] [place] [address] Care Team Providers Care Workers Compensation Analyst Name Role Phone Mingo Aldana MD Primary Car e Provider Herman, Shahida Cummings APRN VICE PRESIDENT INVESTOR RELATIONS Primary Care Provi ford Unavailable Herman, Shahida Cummings APRN VICE PRESIDENT INVESTOR RELATIONS Unavailable Un available Herman, Shahida Cummings APRN VICE PRESIDENT INVESTOR RELATIONS Unavailable Un available Carolynn Ramon RN Unavailable [phone] Augustine Callaway MD Unavailable Brady Loin MD Unavailable Un available Nima France-C Unavailable [phone] Camille Chandler PA-C Unavailable [phone] Anabela Barakat APRN VICE PRESIDENT INVESTOR RELATIONS Unavailable Nima France-C Unavailable [phone] Basilio Morillo DO Unavailable Fawad York MD Unavailable [phone] Roopa Almonte MD Unavailable [phone] Augustine Callaway MD Unavailable Maryse Burton PA-C Unavailable Marquita Starkey MD Unavailable [phone] Roopa Almonte MD Unavailable [phone] Griffin Joshi MD Unavailable Rina Magallon RN Unavailable [phone] Paula Reza MD Primary Care Provider [phone] Griffin Joshi MD Unavailable Roopa Almonte MD Unavailable [phone] [facility] win DO Unavailable Lydia Bernstein PA-C Unavailable Rosa Maria Love Unavailable [phone] Augustine Callaway MD Unavailable Paula Reza MD Unavailable Keerthi Miner APRN VICE PRESIDENT INVESTOR RELATIONS Unavailable Herman, Shahida Cummings APRN VICE PRESIDENT INVESTOR RELATIONS Unavailable Un available Porsha Michaels APRN VICE PRESIDENT INVESTOR RELATIONS Unavailable [phone] Paula Reza MD Unavailable Herman, Shahida Cummings APRN VICE PRESIDENT INVESTOR RELATIONS Unavailable Un available Daylin Ludwig Unavailable [phone] Laurel Velasquez MD Unavailable [phone] Daylin Ludwig Unavailable [phone] Paula Reza MD Unavailable Porsha Michaels APRN VICE PRESIDENT INVESTOR RELATIONS Unavailable [phone] Laurel Velasquez MD Unavailable [phone] Herman, Shahida Cummings APRN VICE PRESIDENT INVESTOR RELATIONS Unavailable Un available Marilin Montaño VICE PRESIDENT INVESTOR RELATIONS Unavailable [phone] Esha Dewitt MD Unavailable [phone] Heather Mosquera MD Unavailable [phone] Paula Reza MD Unavailable Esha Dewitt MD Unavailable [phone] Valdo Escamilla PA-C Unavailable [phone] Nohelia Abarca PA-C Unavailable [phone] Heather Mosquera MD Unavailable Fawad York MD Unavailable Encounter Details Date Type Department Care Team (Late st Contact Info) Description 06/06/2010 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 Rule Out COVID-19 01/05/2021 01/05/2021 01/06/2021 12:57 PM CDT ESBL 01/05/2021 01/05/2021 Rule Out COVID-19 06/30/2021 06/30/2021 07/01/2021 9:34 AM CDT Rule Out COVID-19 07/25/2021 07/25/2021 07/25/2021 8:02 PM CDT documented as of this encounter Care Teams Workers Compensation Analyst Relationship Specialty Start Date End Date Mingo Aldana MD PCP - General Family Practice 07/22/09 07/12/14 Shahida Sutton APRN VICE PRESIDENT INVESTOR RELATIONS PCP - General Nurse Practitioner 08/17/14 08/04/21 Shahida Sutton APRN VICE PRESIDENT INVESTOR RELATIONS PCP - Assigned PCP 07/12/14 05/07/18 Paula Reza MD [address] [place], [place] [id number] PCP - General Internal Medicine 08/05/21 Shahida Sutton APRN VICE PRESIDENT INVESTOR RELATIONS Assigned PCP 07/12/14 09/30/21 Carolynn Ramon, KASIE Personal Advocate & Liaison (PAL) 12/17/18 08/07/21 [place] [address] [place], [place] [address] Assigned Musculoskeletal Provider 12/26/19 08/21/20 Brady Lion MD Assigned Heart and Vascular Provider 12/26/19 08/14/20 Nima France PA-C [address] [place] [id number] Assigned Surgical Provider 05/19/20 08/21/20 Camille Chandler PA-C [address] [place] [address] Assigned Neuroscience Provider 05/19/20 09/14/20 Anabela Barakat APRN CNP 1700 [place] [address] Assigned Heart and Vascular Provider 08/15/20 08/05/21 Nima France PA-C 6545 [facility] 450 [place] [address] Assigned Musculoskeletal Provider 08/22/20 11/13/20 [place] [address] [place] [address] Assigned Musculoskeletal Provider 11/14/20 12/04/20 Fawad York MD 909 [place] [address] Assigned Musculoskeletal Provider 12/05/20 02/05/21 Roopa Almonte MD [address] [facility] 200 [place] [address] Endocrinology, Diabetes, and Metabolism 01/19/21 [place] [address] [facility] 300 [place] [address] Assigned Musculoskeletal Provider 02/06/21 09/16/21 Maryse Burton PA-C [address] [place] [address] Physician Classics Teacher Dermatology 04/14/21 Marquita Starkey MD [address] [facility] 200 [place] [address] Internal Medicine 05/06/21 05/06/21 Roopa Almonte MD [address] [facility] 200 [place] [address] Hospitalist Endocrinology, Diabetes, and Metabolism 05/30/21 Griffin Joshi MD [address] [place] [address] Cardiovascular Disease 07/25/21 Rina Magallon, RN Lead Director [employer] 07/29/21 07/11/22 Griffin Joshi MD [address] [place] [address] Assigned Heart and Vascular Provider 08/06/21 10/07/21 Roopa Almonte MD [address] [facility] 200 [place], [place] [address] Assigned Endocrinology Provider 09/10/21 [place] [address] [facility] [place] [address] Assigned Musculoskeletal Provider 09/17/21 10/14/21 Lydia Bernstein PA-C [address] [place] [address] Assigned PCP 10/01/21 10/21/21 Rosa Maria Love CHW Community Health Worker 10/06/21 [place] [address] [place] [address] Assigned Musculoskeletal Provider 10/15/21 04/26/23 Paula Reza MD [address] [place] [address] Assigned PCP 10/22/21 12/23/21 Keerthi Miner APRN VICE PRESIDENT INVESTOR RELATIONS [address] [place] [address] Assigned Heart and Vascular Provider 10/08/21 02/10/22 Shahida Sutton APRN VICE PRESIDENT INVESTOR RELATIONS Assigned PCP 12/24/21 03/24/22 Porsha Michaels APRN VICE PRESIDENT INVESTOR RELATIONS [address] [place] [address] Assigned Heart and Vascular Provider 02/11/22 05/12/22 Paula Reza MD [address] [place] [address] Assigned PCP 03/25/22 04/07/22 Shahida Sutton APRN VICE PRESIDENT INVESTOR RELATIONS [address] [place] [address] Assigned PCP 04/08/22 06/30/22 Daylin Ludwig EP [facility] [address] [place] [address] Cardiac Rehabilitation Therapist 05/16/23 Laurel Velasquez MD [address] [place] [address] Assigned Heart and Vascular Provider 05/13/22 06/30/22 Daylin Ludwig EP [facility] [address] [place] [address] Cardiac Rehabilitation Therapist 06/08/22 06/09/23 Paula Reza MD [address] [facility] [address] [place], [place] [address] Assigned PCP 07/01/22 07/07/22 Porsha Michaels APRN VICE PRESIDENT INVESTOR RELATIONS [address] [place] [address] Assigned Heart and Vascular Provider 07/01/22 07/07/22 Laurel Velasquez MD [address] [place] [address] Assigned Heart and Vascular Provider 07/08/22 08/04/22 Shahida Sutton APRN VICE PRESIDENT INVESTOR RELATIONS Assigned PCP 07/08/22 09/08/22 Marilin Montaño, VICE PRESIDENT INVESTOR RELATIONS [address] [place] [address] Assigned Heart and Vascular Provider 08/05/22 Esha Dewitt MD 420 [facility] 36 [place], [place] [address] Gastroenterology 09/06/22 Heather Mosquera MD [address] [place] [address] Internal Medicine 09/06/22 Paula Reza MD [address] [place] [address] Assigned PCP 09/09/22 01/05/23 Esha Dewitt MD 420 [facility] 36 [place], [place] [address] Assigned Gastroenterology Provider 09/23/22 Valdo Escamilla PA-C [address] [facility] [address] [place], [place] [address] Assigned Neuroscience Provider 09/30/22 Nohelia Abarca PA-C [address] [place], [place] [address] Physician Classics Teacher Gastroenterology 10/03/22 Heather Mosquera MD [address] [place], [place] [address] Assigned PCP 01/06/23 Fawad York MD 9[address] [place], [place] [address] Assigned Musculoskeletal Provider 04/27/23 06/25/23 documented as of this encounter
--- OUTSIDE RECORDS SUMMARY | 2023-10-02 15:51 | XMS_ITS | Encounter Summary ---
Author Organization [facility] Address [address] [place] [address] Care Team Providers Care Welt Sewer Name Role Phone Dixon Carson MD Primary Care Provider Mingo Aldana MD Primary Car e Provider Shahida Sutton RING CUTTER LATHE OPERATOR BUILDING CLEANER Primary Care Provi ford Unavailable Herman, Shahida Cummings APRN BUILDING CLEANER Unavailable Un available Herman, Shahida Cummings APRN BUILDING CLEANER Unavailable Un available Carolynn Ramon RN Unavailable [phone] Augustine Callaway MD Unavailable Brady Lion MD Unavailable Un available Nima FranceC Unavailable [phone] Camille Chandler PA-C Unavailable [phone] Anabela Barakat APRN BUILDING CLEANER Unavailable Nima FranceC Unavailable [phone] Basilio Morillo DO Unavailable [phone] Fawad York MD Unavailable [phone] Roopa Almonte MD Unavailable [phone] Augustine Callaway MD Unavailable Maryse Burton [...] Reza MD Unavailable Keerthi Miner APRN BUILDING CLEANER Unavailable Herman, Shahida Cummings APRN BUILDING CLEANER Unavailable Un available Porsha Michaels APRN BUILDING CLEANER Unavailable [phone] Paula Reza MD Unavailable Herman, Shahida Cummings APRN BUILDING CLEANER Unavailable Un available Daylin Ludwig Unavailable [phone] Laurel Velasquez MD Unavailable Daylin Ludwig Unavailable [phone] Paula Reza MD Unavailable Porsha Michaels APRN BUILDING CLEANER Unavailable [phone] Laurel Velasquez MD Unavailable Herman, Shahida Cummings APRN BUILDING CLEANER Unavailable Un available Marilin Montaño BUILDING CLEANER Unavailable Esha Dewitt MD Unavailable [phone] Heather Mosquera MD Unavailable [phone] Paula Reza MD Unavailable Esha Dewitt MD Unavailable [phone] Ayserick Valdo Desouza PA-C Unavailable Nohelia AbarcaC Unavailable [phone] Heather Mosquera MD Unavailable Fawad York MD Unavailable Reason for Visit * Reason Onset Date Comments Refill Request 07/01/2009 topamax Encounter Details Date Type Department Care Team (Late st Contact Info) Description 07/01/2009 MyC Refill [address] [address] Dixon Carson MD [address] [address] Refill Request (topamax) Social History Tobacco Use [...] Cunningham - 07/02/2009 10:07 AM [facility] Ma[facility] Terrell would like a refill of the following medications: TOPAMAX 25 MG OR TABS [Dixon Carson MD] Preferred pharmacy: [facility] Comment: documented in this encounter Plan of Treatment Not on file documented as of this encounter Visit Diagnoses Diagnosis Migraine headaches- Primary Migraine, unspecified, without mention of intractable migraine without mention of status migrainosus documented in this encounter Additional Health Concerns Infection Onset Date Last Indicated Resolved Time Rule Out COVID-19 02/15/2020 02/15/2020 02/16/2020 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 Rule Out COVID-19 01/05/2021 01/05/2021 01/06/2021 12:57 PM CDT ESBL 01/05/2021 01/05/2021 Rule Out COVID-19 06/30/2021 06/30/2021 07/01/2021 9:34 AM CDT Rule Out COVID-19 07/25/2021 07/25/2021 07/25/2021 8:02 PM CDT documented as of this encounter Care Teams Welt Sewer Relationship Specialty Start Date End Date Dixno Carson MD PCP - General 08/10/03 07/21/09 Mingo Aldana MD PCP - General Family Practice 07/22/09 07/12/14 Shahida Sutton APRN BUILDING CLEANER PCP - General Nurse Practitioner 08/17/14 08/04/21 Shahida Sutton APRN BUILDING CLEANER PCP - Assigned PCP 07/12/14 05/07/18 Paula Reza MD [address] [facility] [address] [place] [address] PCP - General Internal Medicine 08/05/21 Shahida Sutton APRN BUILDING CLEANER Assigned PCP 07/12/14 09/30/21 Carolynn Ramon, KASIE Personal Advocate & Liaison (PAL) 12/17/18 08/07/21 [place] [address] [address] [facility] [address] [place] [address] Assigned Musculoskeletal Provider 12/26/19 08/21/20 Brady Lion MD Assigned Heart and Vascular Provider 12/26/19 08/14/20 Nima France PA-C [address] [facility] [address] [place] [address] Assigned Surgical Provider 05/19/20 08/21/20 Camille Chandler PA-C [address] [facility] [address] [place] [address] Assigned Neuroscience Provider 05/19/20 09/14/20 Anabela Barakat APRN BUILDING CLEANER [address] [place] [address] Assigned Heart and Vascular Provider 08/15/20 08/05/21 Nima France PA-C [address] [place] [address] Assigned Musculoskeletal Provider 08/22/20 11/13/20 [place] [address] [facility] [place] [address] Assigned Musculoskeletal Provider 11/14/20 12/04/20 Fawad York MD [address] [place], [place] [address] Assigned Musculoskeletal Provider 12/05/20 02/05/21 Roopa Almonte MD [address] [facility] [address] [place] [address] Endocrinology, Diabetes, and Metabolism 01/19/21 [place] [address] [facility] [address] [place] [address] Assigned Musculoskeletal Provider 02/06/21 09/16/21 Maryse Burton PA-C [address] [place] [address] Physician Branch Library Clerk Dermatology 04/14/21 Marquita Starkey MD [address] [place] [address] Internal Medicine 05/06/21 05/06/21 Roopa Almonte MD [address] [place] [address] Hospitalist Endocrinology, Diabetes, and Metabolism 05/30/21 Griffin Joshi MD [address] [facility] [address] [place] [address] Cardiovascular Disease 07/25/21 Rina Magallon, RN Lead Rn Radiation Oncology 07/29/21 07/11/22 Griffin Joshi MD [address] [facility] [address] [place] [address] Assigned Heart and Vascular Provider 08/06/21 10/07/21 Roopa Almonte MD [address] [place] [address] 200 [place], [place] [address] Assigned Endocrinology Provider 09/10/21 [place] [address] [facility] [place] [address] Assigned Musculoskeletal Provider 09/17/21 10/14/21 Lydia Bernstein PA-C [address] [facility] [address] [place] [address] Assigned PCP 10/01/21 10/21/21 Rosa Maria Love CHW Community Health Worker 10/06/21 [place] [address] [facility] [address] [place] [address] Assigned Musculoskeletal Provider 10/15/21 04/26/23 Paula Reza MD [address] [facility] [address] [place] [address] Assigned PCP 10/22/21 12/23/21 Keerthi Miner APRN BUILDING CLEANER [address] [place] [address] Assigned Heart and Vascular Provider 10/08/21 02/10/22 Shahida Sutton APRN BUILDING CLEANER Assigned PCP 12/24/21 03/24/22 Porsha Michaels RING CUTTER LATHE OPERATOR BUILDING CLEANER [address] [place] [address] Assigned Heart and Vascular Provider 02/11/22 05/12/22 Paula Reza MD [address] [facility] 200 [place] [address] Assigned PCP 03/25/22 04/07/22 Shahida Sutton APRN BUILDING CLEANER [address] [place] [address] Assigned PCP 04/08/22 06/30/22 Daylin Ludwig EP [facility] [address] [place] [address] Cardiac Rehabilitation Therapist 05/16/23 Laurel Velasquez MD [address] [place] [address] Assigned Heart and Vascular Provider 05/13/22 06/30/22 Daylin Ludwig EP [facility] [address] [place] [address] Cardiac Rehabilitation Therapist 06/08/22 06/09/23 Paula Reza MD [address] [place], [place] [address] Assigned PCP 07/01/22 07/07/22 Porsha Michaels APRN BUILDING CLEANER [address] [place] [address] Assigned Heart and Vascular Provider 07/01/22 07/07/22 Laurel Velasquez MD [address] [place], [place] [address] Assigned Heart and Vascular Provider 07/08/22 08/04/22 Shahida Sutton APRN BUILDING CLEANER Assigned PCP 07/08/22 09/08/22 Marilin Montaño, BUILDING CLEANER [address] [place] [address] Assigned Heart and Vascular Provider 08/05/22 Esha Dewitt MD [address] [place] [address] 313575 Gastroenterology 09/06/22 Heather Mosquera MD [address] [place] [address] Internal Medicine 09/06/22 Paula Reza MD [address] [place], [place] [address] Assigned PCP 09/09/22 01/05/23 Esha Dewitt MD [address] [place] [address] Assigned Gastroenterology Provider 09/23/22 Valdo Escamilla PA-C [address] [facility] [address] [place] [address] Assigned Neuroscience Provider 09/30/22 Nohelia Abarca PA-C [address] [place], [place] [address] Physician Branch Library Clerk Gastroenterology 10/03/22 Heather Mosquera MD 6545 [facility] [address] [place] [address] Assigned PCP 01/06/23 Fawad York MD [address] [place], [place] [address] Assigned Musculoskeletal Provider 04/27/23 06/25/23 documented as of this encounter
--- OUTSIDE RECORDS SUMMARY | 2023-10-02 15:51 | XMS_ITS | Encounter Summary ---
Author Organization [place] [facility] Address [address] [place] [address] Care Team Providers Care Yard Driver Name Role Phone Mingo Aldana MD Primary Car e Provider Herman, Shahida Cummings APRN [employer] FIELD COORDINATOR Primary Care Provi ford Unavailable Herman, Shahida Cummings APRN [employer] FIELD COORDINATOR Unavailable Un available Herman, Shahida Cummings APRN [employer] FIELD COORDINATOR Unavailable Un available Carolynn Ramon RN Unavailable [phone] Augustine Callaway MD Unavailable Brady Lion MD Unavailable Un available Nima France-C Unavailable [phone] Camille Chandler PA-C Unavailable [phone] Anabela Barakat APRN [employer] FIELD COORDINATOR Unavailable Nima France-C Unavailable [phone] Basilio Morillo DO Unavailable [phone] Fawad York MD Unavailable [phone] Roopa Almonte MD Unavailable [phone] Augustine Callaway MD Unavailable Maryse Burton PA-C Unavailable Marquita Starkey MD Unavailable [phone] Roopa Almonte MD Unavailable [phone] Griffin Joshi MD Unavailable Rina Magallon RN Unavailable [phone] Paula Reza MD Primary Care Provider [phone] Griffin Joshi MD Unavailable Roopa Almonte MD Unavailable [phone] [facility] sl[facility] hospitalBasilio win DO Unavailable Lydia Bernstein PA-C Unavailable Rosa Maria Love Unavailable [phone] Augustine Callaway MD Unavailable Paula Reza MD Unavailable Keerthi Miner APRN [employer] FIELD COORDINATOR Unavailable Herman, Shahida Cummings APRN [employer] FIELD COORDINATOR Unavailable Un available Porsha Michaels APRN [employer] FIELD COORDINATOR Unavailable [phone] Paula Reza MD Unavailable Herman, Shahida Cummings APRN [employer] FIELD COORDINATOR Unavailable Un available Daylin Ludwig Unavailable [phone] Laurel Velasquez MD Unavailable [phone] Daylin Ludwig Unavailable [phone] Paula Reza MD Unavailable Porsha Michaels APRN [employer] FIELD COORDINATOR Unavailable [phone] Laurel Velasquez MD Unavailable [phone] Herman, Shahida Cummings APRN [employer] FIELD COORDINATOR Unavailable Un available Marilin Montaño [employer] FIELD COORDINATOR Unavailable [phone] Esha Dewitt MD Unavailable [phone] Heather Mosquera MD Unavailable Paula Reza MD Unavailable Esha Dewitt MD Unavailable [phone] Valdo Escamilla PA-C Unavailable [phone] Nohelia Abarca PA-C Unavailable [phone] Heather Mosquera MD Unavailable Fawad York MD Unavailable [phone] Encounter Details Date Type Department Care Team (Late st Contact Info) Description 06/15/2010 [facility] [id number] [place] [id number] [place] [id number] [place] [address] Social History Tobacco Use Types Packs/Day [...] COVID-19 02/15/2020 02/15/2020 02/16/2020 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 Rule Out COVID-19 01/05/2021 01/05/2021 01/06/2021 12:57 PM CDT ESBL 01/05/2021 01/05/2021 Rule Out COVID-19 06/30/2021 06/30/2021 07/01/2021 9:34 AM CDT Rule Out COVID-19 07/25/2021 07/25/2021 07/25/2021 8:02 PM CDT documented as of this encounter Care Teams Yard Driver Relationship Specialty Start Date End Date Mingo Aldana MD PCP - General Family Practice 07/22/09 07/12/14 Shahida Sutton APRN [employer] FIELD COORDINATOR PCP - General Nurse Practitioner 08/17/14 08/04/21 Shahida Sutton APRN [employer] FIELD COORDINATOR PCP - Assigned PCP 07/12/14 05/07/18 Paula Reza MD [address] [place], [place] [address] PCP - General Internal Medicine 08/05/21 Shahida Sutton APRN [employer] FIELD COORDINATOR Assigned PCP 07/12/14 09/30/21 Carolynn Ramon, KASIE Personal Advocate & Liaison (PAL) 12/17/18 08/07/21 [place] [address] [place], [place] [address] Assigned Musculoskeletal Provider 12/26/19 08/21/20 Brady Lion MD Assigned Heart and Vascular Provider 12/26/19 08/14/20 Nima France PA-C [address] [place] [address] Assigned Surgical Provider 05/19/20 08/21/20 Camille Chandler PA-C [address] [place] [address] Assigned Neuroscience Provider 05/19/20 09/14/20 Anabela Barakat APRN CNP [address] [place] [address] Assigned Heart and Vascular Provider 08/15/20 08/05/21 Nima France PA-C [address] [facility] 450 [place] [address] Assigned Musculoskeletal Provider 08/22/20 11/13/20 [place] [address] [place] [address] Assigned Musculoskeletal Provider 11/14/20 12/04/20 Fawad York MD [address] [place] [address] Assigned Musculoskeletal Provider 12/05/20 02/05/21 Roopa Almonte MD [address] [facility] 200 [place] [address] Endocrinology, Diabetes, and Metabolism 01/19/21 [place] [address] [facility] [address] [place] [address] Assigned Musculoskeletal Provider 02/06/21 09/16/21 Maryse Burton PA-C [address] [place] [address] Physician Tar Heater Operator Dermatology 04/14/21 Marquita Starkey MD [address] [facility] 200 [place] [address] Internal Medicine 05/06/21 05/06/21 Roopa Almonte MD [address] [facility] [address] [place] [address] Hospitalist Endocrinology, Diabetes, and Metabolism 05/30/21 Griffin Joshi MD [address] [place] [address] Cardiovascular Disease 07/25/21 Rina Magallon, RN Lead Wellhead Pumper 07/29/21 07/11/22 Griffin Joshi MD [address] [place] [address] Assigned Heart and Vascular Provider 08/06/21 10/07/21 Roopa Almonte MD [address] [facility] [address] [place], [place] [address] Assigned Endocrinology Provider 09/10/21 [place] [address] [facility] [place] [address] Assigned Musculoskeletal Provider 09/17/21 10/14/21 Lydia Bernstein PA-C [address] [place] [address] Assigned PCP 10/01/21 10/21/21 Rosa Maria Love CHW Community Health Worker 10/06/21 [place] [address] [place] [address] Assigned Musculoskeletal Provider 10/15/21 04/26/23 Paula Reza MD [address] [place] [address] Assigned PCP 10/22/21 12/23/21 Keerthi Miner APRN [employer] FIELD COORDINATOR [address] [place] [address] Assigned Heart and Vascular Provider 10/08/21 02/10/22 Shahida Sutton APRN [employer] FIELD COORDINATOR Assigned PCP 12/24/21 03/24/22 Porsha Michaels APRN [employer] FIELD COORDINATOR [address] [place] [address] Assigned Heart and Vascular Provider 02/11/22 05/12/22 Paula Reza MD [address] [place] [address] Assigned PCP 03/25/22 04/07/22 Shahida Sutton APRN [employer] FIELD COORDINATOR [address] [place] [address] Assigned PCP 04/08/22 06/30/22 Daylin Ludwig EP [facility] [address] [place] [address] Cardiac Rehabilitation Therapist 05/16/23 Laurel Velasquez MD [address] [place] [address] Assigned Heart and Vascular Provider 05/13/22 06/30/22 Daylin Ludwig EP [facility] [address] [place] [address] Cardiac Rehabilitation Therapist 06/08/22 06/09/23 Paula Reza MD [address] [facility] [address] [place], [place] [address] Assigned PCP 07/01/22 07/07/22 Porsha Michaels APRN [employer] FIELD COORDINATOR [address] [place] [address] Assigned Heart and Vascular Provider 07/01/22 07/07/22 Laurel Velasquez MD [address] [place] [address] Assigned Heart and Vascular Provider 07/08/22 08/04/22 Shahida Sutton APRN [employer] FIELD COORDINATOR Assigned PCP 07/08/22 09/08/22 Marilin Montaño, [employer] FIELD COORDINATOR [address] [place] [address] Assigned Heart and Vascular Provider 08/05/22 Esha Dewitt MD [address] [facility] [address] [place], [place] [address] Gastroenterology 09/06/22 Heather Mosquera MD [address] [place] [address] Internal Medicine 09/06/22 Paula Reza MD [address] [place] [address] Assigned PCP 09/09/22 01/05/23 Esha Dewitt MD [address] [facility] 36 [place], [place] [address] Assigned Gastroenterology Provider 09/23/22 Valdo Escamilla PA-C [address] [facility] [address] [place], [place] [address] Assigned Neuroscience Provider 09/30/22 Nohelia Abarca PA-C [address] [place], [place] [address] Physician Tar Heater Operator Gastroenterology 10/03/22 Heather Mosquera MD [address] [place], [place] [address] Assigned PCP 01/06/23 Fawad York MD [address] [place], [place] [address] Assigned Musculoskeletal Provider 04/27/23 06/25/23 documented as of this encounter
--- OUTSIDE RECORDS SUMMARY | 2023-10-02 15:51 | XMS_ITS | Encounter Summary ---
Author Organization [facility] Address [address] [place] [address] Care Team Providers Care Morning Nanny Name Role Phone Mingo Aldana MD Primary Car e Provider Herman, Shahida Cummings APRN HEALTHCARE ANALYST Primary Care Provi ford Unavailable Herman, Shahida Cummings APRN HEALTHCARE ANALYST Unavailable Un available Herman, Shahida Cummings APRN HEALTHCARE ANALYST Unavailable Un available Carolynn Ramon RN Unavailable [phone] Augustine Callaway MD Unavailable Brady Lion MD Unavailable Un available Nima France-C Unavailable [phone] Camille Chandler PA-C Unavailable [phone] Anabela Barakat APRN HEALTHCARE ANALYST Unavailable Nima France-C Unavailable [phone] Basilio Morillo DO Unavailable Fawad York MD Unavailable [phone] Roopa Almonte MD Unavailable [phone] Augustine Callaway MD Unavailable Maryse Burton PA-C Unavailable Marquita Starkey MD Unavailable [phone] Roopa Almonte MD Unavailable [phone] Griffin Joshi MD Unavailable Rina Magallon RN Unavailable [phone] Paula Reza MD Primary Care Provider [phone] Griffin Joshi MD Unavailable Roopa lAmonte MD Unavailable [phone] [facility] DO Unavailable Lydia Bernstein PA-C Unavailable Rosa Maria Love Unavailable [phone] Augustine Callaway MD Unavailable Paula Reza MD Unavailable Keerthi Miner APRN HEALTHCARE ANALYST Unavailable Herman, Shahida Cummings APRN HEALTHCARE ANALYST Unavailable Un available Porsha Michaels APRN HEALTHCARE ANALYST Unavailable [phone] Paula Reza MD Unavailable Herman, Shahida Cummings APRN HEALTHCARE ANALYST Unavailable Un available Daylin Ludwig Unavailable [phone] Laurel Velasquez MD Unavailable [phone] Daylin Ludwig Unavailable [phone] Paula Reza MD Unavailable Porsha Michaels APRN HEALTHCARE ANALYST Unavailable [phone] Laurel Velasquez MD Unavailable [phone] Herman, Shahida Cummings APRN HEALTHCARE ANALYST Unavailable Un available Marilin Montaño HEALTHCARE ANALYST Unavailable [phone] Esha Dewitt MD Unavailable [phone] Heather Mosquera MD Unavailable Paula Reza MD Unavailable Esha Dewitt MD Unavailable [phone] Valdo Escamilla PA-C Unavailable [phone] Nohelia Abarca PA-C Unavailable [phone] Heather Mosquera MD Unavailable Faawd York MD Unavailable Encounter Details Date Type Department Care Team (Late st Contact Info) Description 06/09/2010 [facility] [id number] [place] [id number] [place] [id number] [place] [id number] Social History Tobacco Use Types Packs/Day [...] Out COVID-19 02/15/2020 02/15/2020 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/2020 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 Rule Out COVID-19 01/05/2021 01/05/2021 01/06/2021 12:57 PM CDT ESBL 01/05/2021 01/05/2021 Rule Out COVID-19 06/30/2021 06/30/2021 07/01/2021 9:34 AM CDT Rule Out COVID-19 07/25/2021 07/25/2021 07/25/2021 8:02 PM CDT documented as of this encounter Care Teams Morning Nanny Relationship Specialty Start Date End Date Mingo Aldana MD PCP - General Family Practice 07/22/09 07/12/14 Shahida Sutton APRN HEALTHCARE ANALYST PCP - General Nurse Practitioner 08/17/14 08/04/21 Shahida Sutton APRN HEALTHCARE ANALYST PCP - Assigned PCP 07/12/14 05/07/18 Paula Reza MD [address] [place], [place] [id number] PCP - General Internal Medicine 08/05/21 Shahida Sutton APRN HEALTHCARE ANALYST Assigned PCP 07/12/14 09/30/21 Carolynn Ramon, KASIE Personal Advocate & Liaison (PAL) 12/17/18 08/07/21 [place] [address] [place], [place] [address] Assigned Musculoskeletal Provider 12/26/19 08/21/20 Brady Lion MD Assigned Heart and Vascular Provider 12/26/19 08/14/20 Nima France PA-C [address] [place] [id number] Assigned Surgical Provider 05/19/20 08/21/20 Camille Chandler PA-C [address] [place] [address] Assigned Neuroscience Provider 05/19/20 09/14/20 Anabela Barakat APRN CNP [address] [place] [address] Assigned Heart and Vascular Provider 08/15/20 08/05/21 Nima France PA-C [address]45 [facility] [address] [place] [address] Assigned Musculoskeletal Provider 08/22/20 11/13/20 [place] [address] [place] [address] Assigned Musculoskeletal Provider 11/14/20 12/04/20 Fawad York MD [address] [place] [address] Assigned Musculoskeletal Provider 12/05/20 02/05/21 Roopa Almonte MD [address] [facility] 200 [place] [address] Endocrinology, Diabetes, and Metabolism 01/19/21 [place] [address] [facility] [address] [place] [address] Assigned Musculoskeletal Provider 02/06/21 09/16/21 Maryse Burton PA-C [address] [place] [address] Physician Scrap Hooker Dermatology 04/14/21 Marquita Starkey MD [address] [facility] 200 [place] [address] Internal Medicine 05/06/21 05/06/21 Roopa Almonte MD [address] [facility] 200 [place] [address] Hospitalist Endocrinology, Diabetes, and Metabolism 05/30/21 Griffin Joshi MD [address] [place] [address] Cardiovascular Disease 07/25/21 Rina Magallon, RN Lead Modeler 07/29/21 07/11/22 Griffin Joshi MD [address] [place] [address] Assigned Heart and Vascular Provider 08/06/21 10/07/21 Roopa Almonte MD [address] [facility] [address] [place], [place] [address] Assigned Endocrinology Provider 09/10/21 [place] [address] [facility] [place] [address] Assigned Musculoskeletal Provider 09/17/21 10/14/21 Lydia Bernstein PA-C [address] [place] [address] Assigned PCP 10/01/21 10/21/21 Rosa Maria Love CHW Community Health Worker 10/06/21 [place] [address] [place] [address] Assigned Musculoskeletal Provider 10/15/21 04/26/23 Paula Reza MD [address] [place] [address] Assigned PCP 10/22/21 12/23/21 Keerthi Miner APRN HEALTHCARE ANALYST [address] [place] [address] Assigned Heart and Vascular Provider 10/08/21 02/10/22 Shahida Sutton APRN HEALTHCARE ANALYST Assigned PCP 12/24/21 03/24/22 Porsha Michaels APRN HEALTHCARE ANALYST [address] [place] [address] Assigned Heart and Vascular Provider 02/11/22 05/12/22 Paula Reza MD [address] [place] [address] Assigned PCP 03/25/22 04/07/22 Shahida Sutton APRN HEALTHCARE ANALYST [address] [place] [address] Assigned PCP 04/08/22 06/30/22 Daylin Ludwig EP [facility] [address] [place] [address] Cardiac Rehabilitation Therapist 05/16/23 Laurel Velasquez MD [address] [place] [address] Assigned Heart and Vascular Provider 05/13/22 06/30/22 Daylin Ludwig EP [facility] [address] [place] [address] Cardiac Rehabilitation Therapist 06/08/22 06/09/23 Paula Reza MD [address] [facility] [address] [place], [place] [address] Assigned PCP 07/01/22 07/07/22 Porsha Michaels APRN HEALTHCARE ANALYST [address] [place] [address] Assigned Heart and Vascular Provider 07/01/22 07/07/22 Laurel Velasquez MD [address] [place] [address] Assigned Heart and Vascular Provider 07/08/22 08/04/22 Shahida Sutton APRN HEALTHCARE ANALYST Assigned PCP 07/08/22 09/08/22 Marilin Montaño, HEALTHCARE ANALYST [address] [place] [address] Assigned Heart and Vascular Provider 08/05/22 Esha Dewitt MD [address] [facility] 36 [place], [place] [address] Gastroenterology 09/06/22 Heather Mosquera MD [address] [place] [address] Internal Medicine 09/06/22 Paula Reza MD [address] [place] [address] Assigned PCP 09/09/22 01/05/23 Esha Dewitt MD [address] [facility] 36 [place], [place] [address] Assigned Gastroenterology Provider 09/23/22 Valdo Escamilla PA-C [address] [facility] [address] [place], [place] [address] Assigned Neuroscience Provider 09/30/22 Nohelia Abarca PA-C [address] [place], [place] [address] Physician Scrap Hooker Gastroenterology 10/03/22 Heather Mosquera MD [address] [place], [place] [address] Assigned PCP 01/06/23 Fawad York MD [address] [place], [place] [address] Assigned Musculoskeletal Provider 04/27/23 06/25/23 documented as of this encounter
--- OUTSIDE RECORDS SUMMARY | 2023-10-02 15:52 | XMS_ITS | Encounter Summary ---
Author Organization [facility] Address [address] [place] [address] Care Team Providers Care Cpo Name Role Phone Dixon Carson MD Primary Care Provider Mingo Aldana MD Primary Car e Provider Shahida Sutton MECHANICAL ENGINEERING TECHNICIAN MEDICAL REGISTRAR Primary Care Provi ford Unavailable Herman, Shahida Cummings APRN MEDICAL REGISTRAR Unavailable Un available Herman, Shahida Cummings APRN MEDICAL REGISTRAR Unavailable Un available Carolynn Ramon RN Unavailable [phone] Augustine Callaway MD Unavailable Brady Lion MD Unavailable Un available Nima FranceC Unavailable [phone] Camille Chandler PA-C Unavailable [phone] Anabela Barakat APRN MEDICAL REGISTRAR Unavailable Nima FranceC Unavailable [phone] Basilio Morillo DO Unavailable [phone] Fawad York MD Unavailable [phone] Roopa Almonte MD Unavailable [phone] Augustine Callaway MD Unavailable Maryse Burton [...] Reza MD Unavailable Keerthi Miner APRN MEDICAL REGISTRAR Unavailable Herman, Shahida Cummings APRN MEDICAL REGISTRAR Unavailable Un available Porsha Michaels APRN MEDICAL REGISTRAR Unavailable [phone] Paula Reza MD Unavailable Herman, Shahida Cummings APRN MEDICAL REGISTRAR Unavailable Un available Daylin Ludwig Unavailable [phone] Laurel Velasquez MD Unavailable Daylin Ludwig Unavailable [phone] Paula Reza MD Unavailable Porsha Michaels APRN MEDICAL REGISTRAR Unavailable [phone] Laurel Velasquez MD Unavailable Herman, Shahida Cummings APRN MEDICAL REGISTRAR Unavailable Un available Marilin Montaño MEDICAL REGISTRAR Unavailable [phone] Esha Dewitt MD Unavailable [phone] Heather Mosquera MD Unavailable Paula Reza MD Unavailable Esha Dewitt MD Unavailable [phone] Valdo Escamilla PA-C Unavailable Nohelia AbarcaC Unavailable [phone] Heather Mosquera MD Unavailable Fawad York MD Unavailable Encounter Details Date Type Department Care Team (Late st Contact Info) Description 10/14/2007 [facility] [address], [address] [place] [address] Dixon Carson MD [address] [address] CHRISTOFER (Obstructive Sleep Apnea); Neck [...] Out COVID-19 02/15/2020 02/15/2020 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/2020 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 Rule Out COVID-19 01/05/2021 01/05/2021 01/06/2021 12:57 PM CDT ESBL 01/05/2021 01/05/2021 Rule Out COVID-19 06/30/2021 06/30/2021 07/01/2021 9:34 AM CDT Rule Out COVID-19 07/25/2021 07/25/2021 07/25/2021 8:02 PM CDT documented as of this encounter Care Teams Cpo Relationship Specialty Start Date End Date Dixon Carson MD PCP - General 08/10/03 07/21/09 Mingo Aldana MD PCP - General Family Practice 07/22/09 07/12/14 Shahida Sutton APRN MEDICAL REGISTRAR PCP - General Nurse Practitioner 08/17/14 08/04/21 Shahida Sutton APRN MEDICAL REGISTRAR PCP - Assigned PCP 07/12/14 05/07/18 Paula Reza MD [address] [place], [place] [address] PCP - General Internal Medicine 08/05/21 Shahida Sutton APRN MEDICAL REGISTRAR Assigned PCP 07/12/14 09/30/21 Carolynn Ramon RN Personal Advocate & Liaison (PAL) 12/17/18 08/07/21 [place] [address] [place], [place] [address] Assigned Musculoskeletal Provider 12/26/19 08/21/20 Brady Lion MD Assigned Heart and Vascular Provider 12/26/19 08/14/20 Nima France PA-C [address] [facility] [address] [place] [address] Assigned Surgical Provider 05/19/20 08/21/20 Camille Chandler PA-C 6545 [facility] [address] [place] [address] Assigned Neuroscience Provider 05/19/20 09/14/20 Anabela Barakat APRN MEDICAL REGISTRAR 1700 [place] [address] Assigned Heart and Vascular Provider 08/15/20 08/05/21 Nima France PA-C [address] [facility] [address] [place] [address] Assigned Musculoskeletal Provider 08/22/20 11/13/20 [place] [address] [place] [address] Assigned Musculoskeletal Provider 11/14/20 12/04/20 Fawad York MD [address]09 [place] [address] Assigned Musculoskeletal Provider 12/05/20 02/05/21 Roopa Almonte MD [address] [place] [address] Endocrinology, Diabetes, and Metabolism 01/19/21 [place] [address] [place] [address] Assigned Musculoskeletal Provider 02/06/21 09/16/21 Maryse Burton PA-C [address] [place] [address] Physician Aluminum Fabrication Supervisor Dermatology 04/14/21 Marquita Starkey MD [address] [facility] 200 [place], [place] [address] Internal Medicine 05/06/21 05/06/21 Roopa Almonte MD [address] [facility] 200 [place], [place] [address] Hospitalist Endocrinology, Diabetes, and Metabolism 05/30/21 Griffin Joshi MD [address] [facility] [address] [place] [address] Cardiovascular Disease 07/25/21 Rina Magallon, RN Lead Physician Office Rep 07/29/21 07/11/22 Griffin Joshi MD [address] [facility] [address] [place] [address] Assigned Heart and Vascular Provider 08/06/21 10/07/21 Roopa Almonte MD [address] [facility] 200 [place] [address] Assigned Endocrinology Provider 09/10/21 [place] [address] [facility] [place] [address] Assigned Musculoskeletal Provider 09/17/21 10/14/21 Lydia Bernstein PA-C [address] [place] [address] Assigned PCP 10/01/21 10/21/21 Rosa Maria Love CHW Community Health Worker 10/06/21 [place] [address] [place] [address] Assigned Musculoskeletal Provider 10/15/21 04/26/23 Paula Reza MD [address] [place] [address] Assigned PCP 10/22/21 12/23/21 Keerthi Miner APRN MEDICAL REGISTRAR [address] [place] [address] Assigned Heart and Vascular Provider 10/08/21 02/10/22 Shahida Sutton APRN MEDICAL REGISTRAR Assigned PCP 12/24/21 03/24/22 Porsha Michaels APRN MEDICAL REGISTRAR [address] [place] [address] Assigned Heart and Vascular Provider 02/11/22 05/12/22 Paula Reza MD [address] [place] [address] Assigned PCP 03/25/22 04/07/22 Shahida Sutton APRN MEDICAL REGISTRAR [address] [place] [address] Assigned PCP 04/08/22 06/30/22 Daylin Ludwig, EP [facility] [address] [place] [address] Cardiac Rehabilitation Therapist 05/16/23 Laurel Velasquez MD [address] [place] [address] Assigned Heart and Vascular Provider 05/13/22 06/30/22 Daylin Ludwig, EP [facility] [address] [place] [address] Cardiac Rehabilitation Therapist 06/08/22 06/09/23 Paula Reza MD [address] [facility] 200 [place], [place] [address] Assigned PCP 07/01/22 07/07/22 Porsha Michaels APRN MEDICAL REGISTRAR [address] [place] [place] [address] Assigned Heart and Vascular Provider 07/01/22 07/07/22 Laurel Velasquez MD [address] [place] [address] Assigned Heart and Vascular Provider 07/08/22 08/04/22 Shahida Sutton APRN MEDICAL REGISTRAR Assigned PCP 07/08/22 09/08/22 Marilin Montaño, MEDICAL REGISTRAR [address] [place] [address] Assigned Heart and Vascular Provider 08/05/22 Esha Dewitt MD 420 [facility] 36 [place] [address] Gastroenterology 09/06/22 Heather Mosquera MD [address] [place] [address] Internal Medicine 09/06/22 Paula Reza MD [address] [place] [address] Assigned PCP 09/09/22 01/05/23 Esha Dewitt MD [address] [address] Assigned Gastroenterology Provider 09/23/22 Valdo Escamilla PA-C [address] [facility] [address] [place] [address] Assigned Neuroscience Provider 09/30/22 Nohelia Abarca PA-C [address]50 [place] [address] Physician Aluminum Fabrication Supervisor Gastroenterology 10/03/22 Heather Mosquera MD [address] [place] [address] Assigned PCP 01/06/23 Fawad York MD [address] [place], [place] [address] Assigned Musculoskeletal Provider 04/27/23 06/25/23 documented as of this encounter
--- OUTSIDE RECORDS SUMMARY | 2023-10-02 15:52 | XMS_ITS | Encounter Summary ---
Author Organization [facility] Address [address] [place] [address] Care Team Providers Care Disability Attorney Name Role Phone Dixon Carson MD Primary Care Provider Mingo Aldana MD Primary Car e Provider Shahida Sutton ASSISTANT FAMILY TEACHER PROTOTYPE SPECIAL BUILD Primary Care Provi ford Unavailable Herman, Shahida Cummings APRN PROTOTYPE SPECIAL BUILD Unavailable Un available Herman, Shahida Cummings APRN PROTOTYPE SPECIAL BUILD Unavailable Un available Carolynn Ramon RN Unavailable [phone] Augustine Callaway MD Unavailable Brady Lion MD Unavailable Un available Nima FranceC Unavailable [phone] Camille Chandler PA-C Unavailable [phone] Anabela Barakat APRN PROTOTYPE SPECIAL BUILD Unavailable Nima FranceC Unavailable [phone] Basilio Morillo DO Unavailable [phone] Fawad York MD Unavailable [phone] Roopa Almonte MD Unavailable [phone] Augustine Callaway MD Unavailable Maryse Burton PA-C Unavailable Marquiat Starkey MD Unavailable Roopa Almonte MD Unavailable [phone] Griffin Joshi MD Unavailable Rina Magallon RN Unavailable Paula Reza MD Primary Care Provider [phone] Griffin Joshi MD Unavailable Roopa Almonte MD Unavailable [facility] hospitalBasilio win DO Unavailable Lydia Bernstein PA-C Unavailable Rosa Maria Love Unavailable [phone] Augustine Callaway MD Unavailable Paula Reza MD Unavailable Keerthi Miner APRN PROTOTYPE SPECIAL BUILD Unavailable Herman, Shahida Cummings APRN PROTOTYPE SPECIAL BUILD Unavailable Un available Porsha Michaels APRN PROTOTYPE SPECIAL BUILD Unavailable [phone] Paula Reza MD Unavailable Herman, Shahida Cummings APRN PROTOTYPE SPECIAL BUILD Unavailable Un available Daylin Ludwig Unavailable [phone] Laurel Velasquez MD Unavailable Daylin Ludwig Unavailable [phone] Paula Rzea MD Unavailable Porsha Michaels APRN PROTOTYPE SPECIAL BUILD Unavailable [phone] Laurel Velasquez MD Unavailable Herman, Shahida Cummings APRN PROTOTYPE SPECIAL BUILD Unavailable Un available Marilin Montaño PROTOTYPE SPECIAL BUILD Unavailable Esha Dewitt MD Unavailable [phone] Heather Mosquera MD Unavailable [phone] Paula Reza MD Unavailable Esha Dewitt MD Unavailable [phone] Valdo Escamilla PA-C Unavailable [phone] Nohelia AbarcaC Unavailable [phone] Heather Mosquera MD Unavailable [phone] Fawad York MD Unavailable [phone] Reason for Visit * Reason Onset Date Comments Refill Request 04/15/2008 Ambien Encounter Details Date Type Department Care Team (Late st Contact Info) Description 04/14/2008 MyC Refill [address] [address] Dixon Carson MD [address] [address] Refill Request (Rickie) Social History Tobacco Use [...] Last filled was 03/09/08 Elizabeth Piña RN KER SOLES * Telephone Encounter - Elizabeth Piña - 04/15/2008 8:14 AM CSTMessage from MyChart: Original authorizing provider: Dixon Terrell would like a refill of the following medications: AMBIEN 10 MG OR TABS [Dixon Carson MD] Preferred pharmacy: [facility] [place] Comment: KER SOLES documented in this encounter Plan of Treatment Not on file documented as of this encounter Visit Diagnoses Diagnosis Insomnia with sleep apnea, unspecified documented in this encounter Additional Health Concerns Infection Onset Date Last Indicated Resolved Time Rule Out COVID-19 02/15/2020 02/15/2020 02/16/2020 2:32 PM CHALKER SOLES Rule Out COVID-19 01/05/2021 01/05/2021 01/06/2021 12:57 PM CDT ESBL 01/05/2021 01/05/2021 Rule Out COVID-19 06/30/2021 06/30/2021 07/01/2021 9:34 AM CDT Rule Out COVID-19 07/25/2021 07/25/2021 07/25/2021 8:02 PM CDT documented as of this encounter Care Teams Disability Attorney Relationship Specialty Start Date End Date Dixon Carson MD PCP - General 08/10/03 07/21/09 Mingo Aldana MD PCP - General Family Practice 07/22/09 07/12/14 Shahida Sutton APRN PROTOTYPE SPECIAL BUILD PCP - General Nurse Practitioner 08/17/14 08/04/21 Shahida Sutton APRN PROTOTYPE SPECIAL BUILD PCP - Assigned PCP 07/12/14 05/07/18 Paula Reza MD [address] [address] PCP - General Internal Medicine 08/05/21 Shahida Sutton APRN PROTOTYPE SPECIAL BUILD Assigned PCP 07/12/14 09/30/21 Carolynn Ramon RN Personal Advocate & Liaison (PAL) 12/17/18 08/07/21 [place] [address] [address] [facility] [address] [place] [address] Assigned Musculoskeletal Provider 12/26/19 08/21/20 Brady Lion MD Assigned Heart and Vascular Provider 12/26/19 08/14/20 Nima France PA-C [address] [facility] [address] [place] [address] Assigned Surgical Provider 05/19/20 08/21/20 Camille Chandler PA-C [address] [facility] [address] [place] [address] Assigned Neuroscience Provider 05/19/20 09/14/20 Anabela Barakat APRN PROTOTYPE SPECIAL BUILD [address] [place] [address] Assigned Heart and Vascular Provider 08/15/20 08/05/21 Nima France PA-C [address] [facility] [address] [facility] [address] [place] [address] Assigned Musculoskeletal Provider 08/22/20 11/13/20 [place] [address] [facility] [place] [address] Assigned Musculoskeletal Provider 11/14/20 12/04/20 Fawad York MD [address] [place] [address] Assigned Musculoskeletal Provider 12/05/20 02/05/21 Roopa Almonte MD [address] [facility] [address] [place] [address] Endocrinology, Diabetes, and Metabolism 01/19/21 [place] [address] [facility] [address] [place] [address] Assigned Musculoskeletal Provider 02/06/21 09/16/21 Maryse Burton PA-C [address] [place] [address] Physician Experimental Aircraft Mechanic Dermatology 04/14/21 Marquita Starkey MD [address] [facility] [address] [place] [address] Internal Medicine 05/06/21 05/06/21 Roopa Almonte MD [address] [facility] [address] [place] [address] Hospitalist Endocrinology, Diabetes, and Metabolism 05/30/21 Griffin Joshi MD [address] [facility] [address] [place] [address] Cardiovascular Disease 07/25/21 Rina Magallon, RN Lead Special Education Inclusion Teacher 07/29/21 07/11/22 Griffin Joshi MD [address] [place] [address] Assigned Heart and Vascular Provider 08/06/21 10/07/21 Roopa Almonte MD [address] [address] [place], [place] [address] Assigned Endocrinology Provider 09/10/21 [place] [address] [facility] [place] [address] Assigned Musculoskeletal Provider 09/17/21 10/14/21 Lydia Bernstein, HUYC [address] [place] [address] Assigned PCP 10/01/21 10/21/21 Rosa Maria Love Cristina Community Health Worker 10/06/21 [place] [address] [facility] [address] [place] [address] Assigned Musculoskeletal Provider 10/15/21 04/26/23 Paula Reza MD [address] [place] [address] Assigned PCP 10/22/21 12/23/21 Keerthi Miner APRN PROTOTYPE SPECIAL BUILD [address] [place] [address] Assigned Heart and Vascular Provider 10/08/21 02/10/22 Shahida Sutton APRN PROTOTYPE SPECIAL BUILD Assigned PCP 12/24/21 03/24/22 Porsha Michaels APRN PROTOTYPE SPECIAL BUILD [address] [place] [address] Assigned Heart and Vascular Provider 02/11/22 05/12/22 Paula Reza MD [address] [place] [address] Assigned PCP 03/25/22 04/07/22 Shahida Sutton APRN PROTOTYPE SPECIAL BUILD [address] [place] [address] Assigned PCP 04/08/22 06/30/22 Daylin Ludwig, EP [facility] [address] [address] Cardiac Rehabilitation Therapist 05/16/23 Laurel Velasquez MD [address] [place] [address] Assigned Heart and Vascular Provider 05/13/22 06/30/22 Daylin Ludwig, EP [facility] [address] [place] [address] Cardiac Rehabilitation Therapist 06/08/22 06/09/23 Paula Reza MD [address] [place] [address] Assigned PCP 07/01/22 07/07/22 Porsha Michaels APRN PROTOTYPE SPECIAL BUILD [address] [place] [address] Assigned Heart and Vascular Provider 07/01/22 07/07/22 Laurel Velasquez MD [address] [place] [address] Assigned Heart and Vascular Provider 07/08/22 08/04/22 Shahida Sutton APRN PROTOTYPE SPECIAL BUILD Assigned PCP 07/08/22 09/08/22 Marilin Montaño, PROTOTYPE SPECIAL BUILD [address] [place] [address] Assigned Heart and Vascular Provider 08/05/22 Esha Dewitt MD [address] [facility] [address] [place], [place] [address] Gastroenterology 09/06/22 Heather Mosquera MD [address] [place] [address] Internal Medicine 09/06/22 Paula Reza MD [address] [facility] [address] [place] [address] Assigned PCP 09/09/22 01/05/23 Esha Dewitt MD 420 [facility] [address] [place], [place] [address] Assigned Gastroenterology Provider 09/23/22 Valdo Escamilla PA-C [address] [place] [address] Assigned Neuroscience Provider 09/30/22 Nohelia Abarca PA-C [address] [place] [address] Physician Experimental Aircraft Mechanic Gastroenterology 10/03/22 Heather Mosquera MD [address] [facility] [address] [place], [place] [address] Assigned PCP 01/06/23 Fawad York MD [address] [place], [place] [address] Assigned Musculoskeletal Provider 04/27/23 06/25/23 documented as of this encounter
--- OUTSIDE RECORDS SUMMARY | 2023-10-02 15:52 | XMS_ITS | Encounter Summary ---
Author Organization [facility] Address [address] [place] [address] Care Team Providers Care Flour Inspector Name Role Phone Dixon Carson MD Primary Care Provider Mingo Aldana MD Primary Car e Provider Shahida Sutton SALT PLANT OPERATOR M48/M60 TANK DRIVER Primary Care Provi ford Unavailable Herman, Shahida Cummings APRN M48/M60 TANK DRIVER Unavailable Un available Herman, Shahida Cummings APRN M48/M60 TANK DRIVER Unavailable Un available Carolynn Ramon RN Unavailable [phone] Augustine Callaway MD Unavailable Brady Lion MD Unavailable Un available Nima FranceC Unavailable [phone] Camille Chandler PA-C Unavailable [phone] Anabela Barakat APRN M48/M60 TANK DRIVER Unavailable Nima FranceC Unavailable [phone] Basilio Morillo DO Unavailable [phone] Fawad York MD Unavailable [phone] Roopa Almonte MD Unavailable [phone] Augustine Callaway MD Unavailable Maryse Burton [...] Paula Reza MD Unavailable Keerthi Miner APRN M48/M60 TANK DRIVER Unavailable Herman, Shahida Cummings APRN M48/M60 TANK DRIVER Unavailable Un available Porsha Michaels APRN M48/M60 TANK DRIVER Unavailable [phone] Paula Reza MD Unavailable Herman, Shahida Cummings APRN M48/M60 TANK DRIVER Unavailable Un available Daylin Ludwig Unavailable [phone] Laurel Velasquez MD Unavailable Daylin Ludwig Unavailable [phone] Paula Reza MD Unavailable Porsha Michaels APRN M48/M60 TANK DRIVER Unavailable [phone] Laurel Velasquez MD Unavailable Herman, Shahida Cummings APRN M48/M60 TANK DRIVER Unavailable Un available Marilin Montaño M48/M60 TANK DRIVER Unavailable Esha Dewitt MD Unavailable [phone] Heather Mosquera MD Unavailable [phone] Paula Reza MD Unavailable Esha Dewitt MD Unavailable [phone] AyseValdo cabrera Deo WEBB Unavailable Nohelia Abarca PA-C Unavailable [phone] Heather Mosquera MD Unavailable Fawad York MD Unavailable Reason for Visit * Reason Onset Date Comments Refill Request 02/14/2008 diazepam Encounter Details Date Type Department Care Team (Late st Contact Info) Description 02/14/2008 MyC [address] [address] [address] Dixon Carson MD [address] [address] Refill Request (diazepam) Social History Tobacco Use [...] - 02/14/2008 12:59 PM CST See below ARCH TEST ENGINE OPERATOR * Telephone Encounter - Ratna Lambert - 02/14/2008 12:39 PM CST Date of last OV: 12/30/07 Reason for visit: lumbago Date last filled: per epic 12/30/07 #24 Labs pertaining to med: none ,Unable to approve per standing orders, routed to provider. Ratna Lambert RN ARCH TEST ENGINE OPERATOR * Telephone Encounter - Ratna Lambert - 02/14/2008 12:38 PM CSTMessage from MyChart: Original authorizing provider: Dixon Terrell would like a refill of the following medications: DIAZEPAM 5 MG OR TABS [Dixon Carson MD] Preferred pharmacy: [facility] [place] Comment: occasional back flare-ups, less than before, but still periodically somewhat dibilitating ARCH TEST ENGINE OPERATOR documented in this encounter Plan of Treatment Not on file documented as of this encounter Visit Diagnoses Diagnosis Lumbago documented in this encounter Additional Health Concerns Infection Onset Date Last Indicated Resolved Time Rule Out COVID-19 02/15/2020 02/15/2020 02/16/2020 2:32 PM RESEARCH TEST ENGINE OPERATOR Rule Out COVID-19 01/05/2021 01/05/2021 01/06/2021 12:57 PM CDT ESBL 01/05/2021 01/05/2021 Rule Out COVID-19 06/30/2021 06/30/2021 07/01/2021 9:34 AM CDT Rule Out COVID-19 07/25/2021 07/25/2021 07/25/2021 8:02 PM CDT documented as of this encounter Care Teams Flour Inspector Relationship Specialty Start Date End Date Dixon Carson MD PCP - General 08/10/03 07/21/09 Mingo Aldana MD PCP - General Family Practice 07/22/09 07/12/14 Shahida Sutton APRN M48/M60 TANK DRIVER PCP - General Nurse Practitioner 08/17/14 08/04/21 Shahida Sutton APRN M48/M60 TANK DRIVER PCP - Assigned PCP 07/12/14 05/07/18 Paula Reza MD [address] [facility] [address] [place] [address] PCP - General Internal Medicine 08/05/21 Shahida Sutton APRN M48/M60 TANK DRIVER Assigned PCP 07/12/14 09/30/21 Carolynn Raomn, KASIE Personal Advocate & Liaison (PAL) 12/17/18 08/07/21 [place] [address] [place] [address] Assigned Musculoskeletal Provider 12/26/19 08/21/20 Brady Lion MD Assigned Heart and Vascular Provider 12/26/19 08/14/20 Nima France PA-C [address] [facility] [address] [place] [address] Assigned Surgical Provider 05/19/20 08/21/20 Camille Chandler PA-C [address] [facility] [address] [place] [address] Assigned Neuroscience Provider 05/19/20 09/14/20 Anabela Barakat APRN M48/M60 TANK DRIVER [address] [place] [address] Assigned Heart and Vascular Provider 08/15/20 08/05/21 Nima France PA-C [address] [place] [address] Assigned Musculoskeletal Provider 08/22/20 11/13/20 Ilia Basilio Naik [address] [facility] [place] [address] Assigned Musculoskeletal Provider 11/14/20 12/04/20 Fawad York MD [address] [place], [place] [address] Assigned Musculoskeletal Provider 12/05/20 02/05/21 Roopa Almonte MD [address] [facility] [address] [place] [address] Endocrinology, Diabetes, and Metabolism 01/19/21 [place] [address] [facility] [address] [place] [address] Assigned Musculoskeletal Provider 02/06/21 09/16/21 Maryse Burton PAAna MariaC [address] [place] [address] Physician Radiology Administrator Dermatology 04/14/21 Marquita Starkey MD [address] [place] [address] Internal Medicine 05/06/21 05/06/21 Roopa Almonte MD [address] [place] [address] Hospitalist Endocrinology, Diabetes, and Metabolism 05/30/21 Griffin Joshi MD [address] [facility] [address] [place] [address] Cardiovascular Disease 07/25/21 Rina Magallon, RN Lead Flush Tester 07/29/21 07/11/22 Griffin Joshi MD [address] [facility] [address] [place] [address] Assigned Heart and Vascular Provider 08/06/21 10/07/21 Roopa Almonte MD [address] [facility] [address] [place], [place] [address] Assigned Endocrinology Provider 09/10/21 [place] [address] [facility] [place] [address] Assigned Musculoskeletal Provider 09/17/21 10/14/21 Lydia Bernstein PA-C [address] [facility] [address] [place] [address] Assigned PCP 10/01/21 10/21/21 Rosa Maria Love CHW Community Health Worker 10/06/21 [place] [address] [facility] [address] [place] [address] Assigned Musculoskeletal Provider 10/15/21 04/26/23 Paula Reza MD [address] [facility] [address] [place] [address] Assigned PCP 10/22/21 12/23/21 Keerthi Miner SALT PLANT OPERATOR M48/M60 TANK DRIVER [address] [place] [address] Assigned Heart and Vascular Provider 10/08/21 02/10/22 Shahida Sutton APRN M48/M60 TANK DRIVER Assigned PCP 12/24/21 03/24/22 Porsha Michaels APRN M48/M60 TANK DRIVER [address] [place] [address] Assigned Heart and Vascular Provider 02/11/22 05/12/22 Paula Reza MD [address] [facility] [address] [place] [address] Assigned PCP 03/25/22 04/07/22 Shahida Sutton APRN M48/M60 TANK DRIVER [address] [place] [address] Assigned PCP 04/08/22 06/30/22 Daylin Ludwig EP [facility] [address] [place] [address] Cardiac Rehabilitation Therapist 05/16/23 Laurel Velasquez MD [address] [place] [address] Assigned Heart and Vascular Provider 05/13/22 06/30/22 Daylin Ludwig EP [facility] [address] [place] [address] Cardiac Rehabilitation Therapist 06/08/22 06/09/23 Paula Reza MD [address] [place] [address] Assigned PCP 07/01/22 07/07/22 Porsha Michaels APRN M48/M60 TANK DRIVER [address] [place] [address] Assigned Heart and Vascular Provider 07/01/22 07/07/22 Laurel Velasquez MD [address] [place] [address] Assigned Heart and Vascular Provider 07/08/22 08/04/22 Shahida Sutton APRN M48/M60 TANK DRIVER Assigned PCP 07/08/22 09/08/22 Marilin Montaño M48/M60 TANK DRIVER [address] [place] [address] Assigned Heart and Vascular Provider 08/05/22 Esha Dewitt MD [address] [place] [address] Gastroenterology 09/06/22 Heather Mosquera MD [address] [place] [address] Internal Medicine 09/06/22 Paula Reza MD [address] [place], [place] [address] Assigned PCP 09/09/22 01/05/23 Esha Dewitt MD [address] [place] [address] Assigned Gastroenterology Provider 09/23/22 Valdo Escamilla PA-C [address] [facility] [address] [place] [address] Assigned Neuroscience Provider 09/30/22 Nohelia Abarca PA-C [address] [place], [place] [address] Physician Radiology Administrator Gastroenterology 10/03/22 Heather Mosquera MD [address]45 [facility] 150 [place], [place] [address] Assigned PCP 01/06/23 Fawad York MD [address] [place], [place] [address] Assigned Musculoskeletal Provider 04/27/23 06/25/23 documented as of this encounter
--- OUTSIDE RECORDS SUMMARY | 2023-10-02 15:52 | XMS_ITS | Encounter Summary ---
Author Organization [place] Address [address] [place] [address] Care Team Providers Care Behavioral Modification Assistant Name Role Phone Dixon Carson MD Primary Care Provider Mingo Aldana MD Primary Car e Provider Shahida Sutton SENIOR CARE MANAGER [employer]TER [employer] Primary Care Provi ford Unavailable Herman, Shahida Cummings APRN [employer] C[employer]TER HAND Unavailable Un available Herman, Shahida Cummings APRN [employer] CUTTER HAND Unavailable Un available Carolynn Ramon RN Unavailable [phone] Augustine Callaway MD Unavailable Brady Lion MD Unavailable Un available Nima FranceC Unavailable [phone] Camille Chandler PA-C Unavailable [phone] Anabela Barakat APRN [employer] Unavailable Nima FranceC Unavailable [phone] Basilio Morillo DO Unavailable [phone] Fawad York MD Unavailable [phone] Roopa Almonte MD Unavailable [phone] Augustine Callaway MD Unavailable Maryse Burton [...] Paula Reza MD Unavailable Keerthi Miner APRN [employer] HAND Unavailable Herman, Shahida Cummings APRN [employer] HAND Unavailable Un available Porsha Michaels APRN [employer] HAND Unavailable [phone] Paula Reza MD Unavailable Herman, Shahida Cummings APRN [employer] HAND Unavailable Un available Daylin Ludwig Unavailable [phone] Laurel Velasquez MD Unavailable Daylin Ludwig Unavailable [phone] Paula Reza MD Unavailable Porsha Michaels APRN [employer] C[employer]TER HAND Unavailable [phone] Laurel Velasquez MD Unavailable Herman, Shahida Cummings APRN [employer] HAND Unavailable Un available Marilin Montaño CANDY CUTTER HAND Unavailable Esha Dewitt MD Unavailable [phone] Heather Mosquera MD Unavailable Paula Reza MD Unavailable Esha Dewitt MD Unavailable [phone] Ayserick Valdo Desouza PA-C Unavailable Nohelia AbarcaC Unavailable [phone] Heather Mosquera MD Unavailable Fawad York MD Unavailable [phone] Reason for Visit * Reason Onset Date Comments Refill Request 08/28/2008 hydrocodone Encounter Details Date Type Department Care Team (Late st Contact Info) Description 08/28/2008 MyC Refill [address] [address] Dixon Carson MD [address] [address] Refill Request (hydrocodone) Social History Tobacco Use [...] Jones - 08/28/2008 3:08 PM [facility]rell would like a refill of the following medications: HYDROCODONE-ACETAMINOPHEN 10-325 MG OR TABS [Dixon Carson MD] Preferred pharmacy: [facility] Comment: Daily headaches continuing documented in this [...] Out COVID-19 02/15/2020 02/15/2020 02/16/2020 2:32 PM MILITARY PERSONNEL SPECIALIST Rule Out COVID-19 01/05/2021 01/05/2021 01/06/2021 12:57 PM CDT ESBL 01/05/2021 01/05/2021 Rule Out COVID-19 06/30/2021 06/30/2021 07/01/2021 9:34 AM CDT Rule Out COVID-19 07/25/2021 07/25/2021 07/25/2021 8:02 PM CDT documented as of this encounter Care Teams Behavioral Modification Assistant Relationship Specialty Start Date End Date Dixon Carson MD PCP - General 08/10/03 07/21/09 Mingo Aldana MD PCP - General Family Practice 07/22/09 07/12/14 Shahida Sutton APRN C[facility]Y CUTTER HAND PCP - General Nurse Practitioner 08/17/14 08/04/21 Shahida Sutton APRN CANDY CUTTER HAND PCP - Assigned PCP 07/12/14 05/07/18 Paula Reza MD [address] [place] [phone] (Work) PCP - General Internal Medicine 08/05/21 Shahida Sutton APRN CANDY CUTTER HAND Assigned PCP 07/12/14 09/30/21 Carolynn Ramon, KASIE Personal Advocate & Liaison (PAL) 12/17/18 08/07/21 [place] [address] [place] [address] Assigned Musculoskeletal Provider 12/26/19 08/21/20 Brady Lion MD Assigned Heart and Vascular Provider 12/26/19 08/14/20 Nima France PA-C [address] [facility] [address] [place] [address] Assigned Surgical Provider 05/19/20 08/21/20 Camille Chandler PA-C [address] [facility] [address] [place] [address] Assigned Neuroscience Provider 05/19/20 09/14/20 Anabela Barakat APRN [employer] CUTTER HAND [address] [place] [address] Assigned Heart and Vascular Provider 08/15/20 08/05/21 Nima France PA-C [address] [facility] [address] [place] [address] Assigned Musculoskeletal Provider 08/22/20 11/13/20 [place] [address] [facility] [place] [address] Assigned Musculoskeletal Provider 11/14/20 12/04/20 Fawad York MD [address] [place], [place] [address] Assigned Musculoskeletal Provider 12/05/20 02/05/21 Roopa Almonte MD [address] [facility] [address] [place] [address] Endocrinology, Diabetes, and Metabolism 01/19/21 [place] [address] [facility] [address] [place] [address] Assigned Musculoskeletal Provider 02/06/21 09/16/21 Maryse Burton PAAna MariaC [address] [place] [address] Physician Lawn And Tree Service Spray Supervisor Dermatology 04/14/21 Marquita Starkey MD [address] [facility] [address] [place] [address] Internal Medicine 05/06/21 05/06/21 Roopa Almonte MD [address] [facility] [address] [place] [address] Hospitalist Endocrinology, Diabetes, and Metabolism 05/30/21 Griffin Joshi MD [address] [facility] [address] [place] [address] Cardiovascular Disease 07/25/21 Rina Magallon, RN Lead Manager Strategic Development 07/29/21 07/11/22 Griffin Joshi MD [address] [place] [address] Assigned Heart and Vascular Provider 08/06/21 10/07/21 Roopa Almonte MD [address] [facility] [address] [place], [place] [address] Assigned Endocrinology Provider 09/10/21 [place] [address] [facility] [place] [address] Assigned Musculoskeletal Provider 09/17/21 10/14/21 Lydia Bernstein, TRACEY [address] [place] [address] Assigned PCP 10/01/21 10/21/21 Rosa Maria Love CHW Community Health Worker 10/06/21 [place] [address] [facility] [address] [place] [address] Assigned Musculoskeletal Provider 10/15/21 04/26/23 Paula Reza MD [address] [facility] [address] [place], [place] [address] Assigned PCP 10/22/21 12/23/21 Keerthi Miner APRN CANDY CUTTER HAND [address] [place] [address] Assigned Heart and Vascular Provider 10/08/21 02/10/22 Shahida Sutton APRN CANDY CUTTER HAND Assigned PCP 12/24/21 03/24/22 Porsha Michaels APRN [employer] CUTTER HAND [address] [place] [address] Assigned Heart and Vascular Provider 02/11/22 05/12/22 Paula Reaz MD [address] [place] [address] Assigned PCP 03/25/22 04/07/22 Shahida Sutton APRN C[facility] CUTTER HAND [address] [place] [address] Assigned PCP 04/08/22 06/30/22 Daylin Ludwig, EP [facility] [address] [place] [address] Cardiac Rehabilitation Therapist 05/16/23 Laurel Velasquez MD [address] [place] [address] Assigned Heart and Vascular Provider 05/13/22 06/30/22 Daylin Ludwig, EP [facility] [address] [place] [address] Cardiac Rehabilitation Therapist 06/08/22 06/09/23 Paula Reza MD [address] [place] [address] Assigned PCP 07/01/22 07/07/22 Porsha Michaels APRN CANDY CUTTER HAND [address] [place] [address] Assigned Heart and Vascular Provider 07/01/22 07/07/22 Laurel Velasquez MD [address] [place] [address] Assigned Heart and Vascular Provider 07/08/22 08/04/22 Shahida Sutton, SENIOR CARE MANAGER C[employer] CUTTER HAND Assigned PCP 07/08/22 09/08/22 Marilin Montaño, CANDY CUTTER HAND [address] [place] [address] Assigned Heart and Vascular Provider 08/05/22 Esha Dewitt MD [address] [place] [address] Gastroenterology 09/06/22 Heather Mosquera MD [address] [place] [address] Internal Medicine 09/06/22 Paula Reza MD [address] [facility] [address] [place], [place] [address] Assigned PCP 09/09/22 01/05/23 Ehsa Dewitt MD [address] [address] Assigned Gastroenterology Provider 09/23/22 Valdo Escamilla PA-C [address] [place] [address] Assigned Neuroscience Provider 09/30/22 Nohelia Abarca PA-C [address] [place] [address] Physician Lawn And Tree Service Spray Supervisor Gastroenterology 10/03/22 Heather Mosquera MD [address] [facility] [address] [place], [place] [address] Assigned PCP 01/06/23 Fawad York MD [address] [place] [address] Assigned Musculoskeletal Provider 04/27/23 06/25/23 documented as of this encounter
--- OUTSIDE RECORDS SUMMARY | 2023-10-02 15:52 | XMS_ITS | Encounter Summary ---
Author Organization [facility] Address [address] [place] [address] Care Team Providers Care Leather Parts Matcher Name Role Phone Dixon Carson MD Primary Care Provider Mingo Aldana MD Primary Car e Provider Shahida Sutton AMBULANCE PARAMEDIC PULP MACHINE OPERATOR Primary Care Provi ford Unavailable Herman, Shahida Cummings APRN PULP MACHINE OPERATOR Unavailable Un available Herman, Shahida Cummings APRN PULP MACHINE OPERATOR Unavailable Un available Carolynn Ramon RN Unavailable [phone] Augustine Callaway MD Unavailable Brady Lion MD Unavailable Un available Nima FranceC Unavailable [phone] Camille Chandler PA-C Unavailable [phone] Anabela Barakat APRN PULP MACHINE OPERATOR Unavailable Nima FranceC Unavailable [phone] Basilio Morillo DO Unavailable [phone] Fawad York MD Unavailable [phone] Roopa Almonte MD Unavailable [phone] Augustine Callaway MD Unavailable Maryse Burton [...] Paula Reza MD Unavailable Keerthi Miner APRN PULP MACHINE OPERATOR Unavailable Herman, Shahida Cummings APRN PULP MACHINE OPERATOR Unavailable Un available Porsha Michaels APRN PULP MACHINE OPERATOR Unavailable [phone] Paula Reza MD Unavailable Herman, Shahida Cummings APRN PULP MACHINE OPERATOR Unavailable Un available Daylin Ludwig Unavailable [phone] Laurel Velasquez MD Unavailable Daylin Ludwig Unavailable [phone] Paula Reza MD Unavailable Porsha Michaels APRN PULP MACHINE OPERATOR Unavailable [phone] Laurel Velasquez MD Unavailable Herman, Shahida Cummings APRN PULP MACHINE OPERATOR Unavailable Un available Marilin Montaño PULP MACHINE OPERATOR Unavailable Esha Dewitt MD Unavailable [phone] Heather Mosquera MD Unavailable Paula Reza MD Unavailable Esha Dewitt MD Unavailable [phone] Valdo Escamilla Deo PAAna MariaC Unavailable [phone] Nohelia AbarcaC Unavailable [phone] Heather Mosquera MD Unavailable Fawad York MD Unavailable Reason for Visit * Reason Onset Date Comments Refill Request 02/03/2008 Rickie Cohen Encounter Details Date Type Department Care Team (Late st Contact Info) Description 02/02/2008 MyC Refill [address] [phone] Dixon Carson MD [address] [address] Refill Request (Rickie Cohen) Social History Tobacco [...] Last Filled: 01/07/08 #30 Sonia Dodd RN. TER AIRBRUSH * Telephone Encounter - Sonia Dodd - 02/03/2008 9:06 AM CSTMessage from MyChart: Original authorizing provider: Dixon Terrell would like a refill of the following medications: AMBIEN 10 MG OR TABS [Dixon Carson MD] Preferred pharmacy: [facility] Comment: TER AIRBRUSH documented in this encounter Plan of Treatment Not on file documented as of this encounter Visit Diagnoses Diagnosis Insomnia with sleep apnea, unspecified documented in this encounter Additional Health Concerns Infection Onset Date Last Indicated Resolved Time Rule Out COVID-19 02/15/2020 02/15/2020 02/16/2020 2:32 PM PAINTER AIRBRUSH Rule Out COVID-19 01/05/2021 01/05/2021 01/06/2021 12:57 PM CDT ESBL 01/05/2021 01/05/2021 Rule Out COVID-19 06/30/2021 06/30/2021 07/01/2021 9:34 AM CDT Rule Out COVID-19 07/25/2021 07/25/2021 07/25/2021 8:02 PM CDT documented as of this encounter Care Teams Leather Parts Matcher Relationship Specialty Start Date End Date Dixon Carson MD PCP - General 08/10/03 07/21/09 Mingo Aldana MD PCP - General Family Practice 07/22/09 07/12/14 Shahida Sutton APRN PULP MACHINE OPERATOR PCP - General Nurse Practitioner 08/17/14 08/04/21 Shahida Sutton APRN PULP MACHINE OPERATOR PCP - Assigned PCP 07/12/14 05/07/18 Paula Reza MD [address] [address] PCP - General Internal Medicine 08/05/21 Shahida Sutton APRN PULP MACHINE OPERATOR Assigned PCP 07/12/14 09/30/21 Carolynn Ramon, KASIE Personal Advocate & Liaison (PAL) 12/17/18 08/07/21 [place] [address] [place] [address] Assigned Musculoskeletal Provider 12/26/19 08/21/20 Brady Lion MD Assigned Heart and Vascular Provider 12/26/19 08/14/20 Nima France PA-C [address] [facility] [address] [place] [address] Assigned Surgical Provider 05/19/20 08/21/20 Camille Chandler PA-C [address] [facility] [address] [facility] [address] [place] [address] Assigned Neuroscience Provider 05/19/20 09/14/20 Anabela Barakat APRN PULP MACHINE OPERATOR [address] [place] [address] Assigned Heart and Vascular Provider 08/15/20 08/05/21 Nima France PA-C [address] [facility] [address] [place] [address] Assigned Musculoskeletal Provider 08/22/20 11/13/20 [place] [address] [facility] [place] [address] Assigned Musculoskeletal Provider 11/14/20 12/04/20 Fawad York MD [address] [place] [address] Assigned Musculoskeletal Provider 12/05/20 02/05/21 Roopa Almonte MD [address] [facility] [address] [place] [address] Endocrinology, Diabetes, and Metabolism 01/19/21 [place] [address] [facility] [address] [place] [address] Assigned Musculoskeletal Provider 02/06/21 09/16/21 Maryse Burton, PA-C [address] [place] [address] Physician Real Estate Leasing Manager Dermatology 04/14/21 Marquita Starkey MD [address] [facility] [address] [place] [address] Internal Medicine 05/06/21 05/06/21 Roopa Almonte MD [address] [facility] [address] [place] [address] Hospitalist Endocrinology, Diabetes, and Metabolism 05/30/21 Griffin Joshi MD [address] [facility] [facility] [address] [place] [address] Cardiovascular Disease 07/25/21 Rnia Magallon, RN Lead Fiberglass Roving Winder 07/29/21 07/11/22 Griffin Joshi MD [address] [place] [address] Assigned Heart and Vascular Provider 08/06/21 10/07/21 Roopa Almonte MD [address] [facility] [address] [place], [place] [address] Assigned Endocrinology Provider 09/10/21 [place] [address] [facility] [place] [address] Assigned Musculoskeletal Provider 09/17/21 10/14/21 Lydia Bernstein, TRACEY [address] [place] [address] Assigned PCP 10/01/21 10/21/21 Rosa Maria Love CHW Community Health Worker 10/06/21 [place] [address] [facility] [address] [place] [address] Assigned Musculoskeletal Provider 10/15/21 04/26/23 Paula Reza MD [address] [place], [place] [address] Assigned PCP 10/22/21 12/23/21 Keerthi Miner APRN PULP MACHINE OPERATOR [address] [place] [address] Assigned Heart and Vascular Provider 10/08/21 02/10/22 Shahida Sutton APRN PULP MACHINE OPERATOR Assigned PCP 12/24/21 03/24/22 Porsha Michaels APRN PULP MACHINE OPERATOR [address] [place] [address] Assigned Heart and Vascular Provider 02/11/22 05/12/22 Paula Reza MD [address] [place] [address] Assigned PCP 03/25/22 04/07/22 Shahida Sutton APRN PULP MACHINE OPERATOR [address] [place] [address] Assigned PCP 04/08/22 06/30/22 Daylin Ludwig EP [facility] [address] [place] [address] Cardiac Rehabilitation Therapist 05/16/23 Laurel Velasquez MD [address] [place] [address] Assigned Heart and Vascular Provider 05/13/22 06/30/22 Daylin Ludwig, EP [facility] [address] [place] [address] Cardiac Rehabilitation Therapist 06/08/22 06/09/23 Paula Reza MD [address] [place] [address] Assigned PCP 07/01/22 07/07/22 Porsha Michaels APRN PULP MACHINE OPERATOR [address] [place] [address] Assigned Heart and Vascular Provider 07/01/22 07/07/22 Laurel Velasquez MD [address] [place] [address] Assigned Heart and Vascular Provider 07/08/22 08/04/22 Shahida Sutton, AMBULANCE PARAMEDIC PULP MACHINE OPERATOR Assigned PCP 07/08/22 09/08/22 Marilin Montaño, PULP MACHINE OPERATOR [address] [place] [address] Assigned Heart and Vascular Provider 08/05/22 Esha Dewitt MD [address] [place] [address] Gastroenterology 09/06/22 Heather Mosquera MD [address] [place] [address] Internal Medicine 09/06/22 Paula Reza MD [address] [facility] [address] [place], [place] [address] Assigned PCP 09/09/22 01/05/23 Esha Dewitt MD [address] [place] [address] Assigned Gastroenterology Provider 09/23/22 Valdo Escamilla PA-C [address] [place] [address] Assigned Neuroscience Provider 09/30/22 Nohelia Abarca PA-C [address] [place], [place] [address] Physician Real Estate Leasing Manager Gastroenterology 10/03/22 Heather Mosquera MD [address] [facility] [address] [place], [place] [address] Assigned PCP 01/06/23 Fawad York MD [address] [place], [place] [address] Assigned Musculoskeletal Provider 04/27/23 06/25/23 documented as of this encounter
--- OUTSIDE RECORDS SUMMARY | 2023-10-02 15:52 | XMS_ITS | Encounter Summary ---
Author Organization [place] Address [address] [place] [address] Care Team Providers Care Telegraphic Instrument Supervisor Name Role Phone Dixon Carson MD Primary Care Provider Mingo Aldana MD Primary Car e Provider Shahida Sutton EDITOR IN CHIEF DOBBY LOOM WEAVER Primary Care Provi ford Unavailable Herman, Shahida Cummings APRN DOBBY LOOM WEAVER Unavailable Un available Herman, Shahida Cummings APRN DOBBY LOOM WEAVER Unavailable Un available Carolynn Ramon RN Unavailable [phone] Augustine Callaway MD Unavailable Brady Lion MD Unavailable Un available Nima FranceC Unavailable [phone] Camille Chandler PA-C Unavailable [phone] Anabela Barakat APRN DOBBY LOOM WEAVER Unavailable Nima FranceC Unavailable [phone] Basilio Morillo DO Unavailable [phone] Fawad York MD Unavailable [phone] Roopa Almonte MD Unavailable [phone] Augustine Callaway MD Unavailable Maryse Burton [...] Paula Reza MD Unavailable Keerthi Miner APRN DOBBY LOOM WEAVER Unavailable Herman, Shahida Cummings APRN DOBBY LOOM WEAVER Unavailable Un available Porsha Michaels APRN DOBBY LOOM WEAVER Unavailable [phone] Paula Reza MD Unavailable Herman, Shahida Cummings APRN DOBBY LOOM WEAVER Unavailable Un available Daylin Ludwig Unavailable [phone] Laurel Velasquez MD Unavailable Daylin Ludwig Unavailable [phone] Paula Reza MD Unavailable Porsha Michaels APRN DOBBY LOOM WEAVER Unavailable [phone] Laurel Velasquez MD Unavailable Herman, Shahida Cummings APRN DOBBY LOOM WEAVER Unavailable Un available Marilin Montaño DOBBY LOOM WEAVER Unavailable [phone] Esha Dewitt MD Unavailable [phone] Heather Mosquera MD Unavailable [phone] Paula Reza MD Unavailable Esha Dewitt MD Unavailable [phone] Valdo Escamilla PA-C Unavailable Nohelia Abarca-C Unavailable [phone] Heather Mosquera MD Unavailable Fawad York MD Unavailable [phone] Encounter Details Date Type Department Care Team [...] COVID-19 02/15/2020 02/15/2020 02/16/2020 2:32 PM SERVICE TRAINER Rule Out COVID-19 01/05/2021 01/05/2021 01/06/2021 12:57 PM CDT ESBL 01/05/2021 01/05/2021 Rule Out COVID-19 06/30/2021 06/30/2021 07/01/2021 9:34 AM CDT Rule Out COVID-19 07/25/2021 07/25/2021 07/25/2021 8:02 PM CDT documented as of this encounter Care Teams Telegraphic Instrument Supervisor Relationship Specialty Start Date End Date Dixon Carson MD PCP - General 08/10/03 07/21/09 Mingo Aldana MD PCP - General Family Practice 07/22/09 07/12/14 Shahida Sutton APRN DOBBY LOOM WEAVER PCP - General Nurse Practitioner 08/17/14 08/04/21 Shahida Sutton APRN DOBBY LOOM WEAVER PCP - Assigned PCP 07/12/14 05/07/18 Paula Reza MD [address] [place] [address] PCP - General Internal Medicine 08/05/21 Shahida Sutton APRN DOBBY LOOM WEAVER Assigned PCP 07/12/14 09/30/21 Carolynn Ramon, KASIE Personal Advocate & Liaison (PAL) 12/17/18 08/07/21 [place] [address] [place] [address] Assigned Musculoskeletal Provider 12/26/19 08/21/20 Brady Lion MD Assigned Heart and Vascular Provider 12/26/19 08/14/20 Nima France PA-C [address] [place] [id number] Assigned Surgical Provider 05/19/20 08/21/20 Camille Chandler PA-C [address] [place] [address] Assigned Neuroscience Provider 05/19/20 09/14/20 Anabela Barakat APRN CNP [address] [place] [address] Assigned Heart and Vascular Provider 08/15/20 08/05/21 Nima France PA-C 6545 [facility] 450 [place] [address] Assigned Musculoskeletal Provider 08/22/20 11/13/20 [place] [address] [place] [address] Assigned Musculoskeletal Provider 11/14/20 12/04/20 Fawad York MD [address] [place], [place] [address] Assigned Musculoskeletal Provider 12/05/20 02/05/21 Roopa Almonte MD [address] [facility] 200 [place] [address] Endocrinology, Diabetes, and Metabolism 01/19/21 [place] [address] [facility] [address] [place] [address] Assigned Musculoskeletal Provider 02/06/21 09/16/21 Maryse Burton PA-C [address] [place] [address] Physician Ultrasound Technologist Sonographer Dermatology 04/14/21 Marquita Starkey MD [address] [facility] [address] [place] [address] Internal Medicine 05/06/21 05/06/21 Roopa Almonte MD [address] [facility] 200 [place] [address] Hospitalist Endocrinology, Diabetes, and Metabolism 05/30/21 Griffin Joshi MD [address] [place] [id number] Cardiovascular Disease 07/25/21 Rina Magallon RN Lead Licensed Therapist 07/29/21 07/11/22 Griffin Joshi MD [address] [place] [id number] Assigned Heart and Vascular Provider 08/06/21 10/07/21 Roopa Almonte MD [address] [place] [address] 200 [place], [place] [address] Assigned Endocrinology Provider 09/10/21 [place] [address] [facility] [place] [address] Assigned Musculoskeletal Provider 09/17/21 10/14/21 Lydia Bernstein PA-C [address] [place] [id number] Assigned PCP 10/01/21 10/21/21 Rosa Maria Love CHW Community Health Worker 10/06/21 [place] [address] [place] [address] Assigned Musculoskeletal Provider 10/15/21 04/26/23 Paula Reza MD [address] [place] [address] Assigned PCP 10/22/21 12/23/21 Keerthi Miner APRN DOBBY LOOM WEAVER [address] [place] [address] Assigned Heart and Vascular Provider 10/08/21 02/10/22 Shahida Sutton APRN DOBBY LOOM WEAVER Assigned PCP 12/24/21 03/24/22 Porsha Micahels APRN DOBBY LOOM WEAVER [address] [place] [address] Assigned Heart and Vascular Provider 02/11/22 05/12/22 Paula Reza MD [address] [place] [address] Assigned PCP 03/25/22 04/07/22 Shahida Sutton APRN DOBBY LOOM WEAVER [address] [place] [address] Assigned PCP 04/08/22 06/30/[address] [facility] [address] [place] [address] Cardiac Rehabilitation Therapist 05/16/23 Laurel Velasquez MD [address] [place] [address] Assigned Heart and Vascular Provider 05/13/22 06/30/[address] [facility] [address] [place] [address] Cardiac Rehabilitation Therapist 06/08/22 06/09/23 Paula Reza MD [address] [facility] 200 [place] [address] Assigned PCP 07/01/22 07/07/22 Porsha Michaels APRN DOBBY LOOM WEAVER [address] [place] [address] Assigned Heart and Vascular Provider 07/01/22 07/07/22 Laurel Velasquez MD [address] [place] [address] Assigned Heart and Vascular Provider 07/08/22 08/04/22 Shahida Sutton APRN DOBBY LOOM WEAVER Assigned PCP 07/08/22 09/08/22 Marilin Montaño, DOBBY LOOM WEAVER [address] [place] [address] Assigned Heart and Vascular Provider 08/05/22 Esha Dewitt MD [address] [place] [address] 36 [place], [place] [address] Gastroenterology 09/06/22 Heather Mosquera MD [address] [place] [address] Internal Medicine 09/06/22 Paula Reza MD [address] [facility] 200 [place], [place] [address] Assigned PCP 09/09/22 01/05/23 Esha Dewitt MD 420 [facility] 36 [place], [place] [address] Assigned Gastroenterology Provider 09/23/22 Valdo Escamilla PA-C [address] [facility] [address] [address] [place], [place] [address] Assigned Neuroscience Provider 09/30/22 Nohelia Abarca PA-C [address] [place], [place] [address] Physician Ultrasound Technologist Sonographer Gastroenterology 10/03/22 Heather Mosquera MD 6545 [facility] 150 [place], [place] [address] Assigned PCP 01/06/23 Fawad York MD [address] [place], [place] [address] Assigned Musculoskeletal Provider 04/27/23 06/25/23 documented as of this encounter
--- OUTSIDE RECORDS SUMMARY | 2023-10-02 15:52 | XMS_ITS | Encounter Summary ---
Author Organization [place] Address [address] [place] [address] Care Team Providers Care Research Epidemiologist Name Role Phone Dixon Carson MD Primary Care Provider Mingo Aldana MD Primary Car e Provider Shahida Sutton MAITRE D' LINING REPAIRER Primary Care Provi ford Unavailable Herman, Sahhida Cummings APRN LINING REPAIRER Unavailable Un available Herman, Shahida Cummings APRN LINING REPAIRER Unavailable Un available Carolynn Ramon RN Unavailable [phone] Augustine Callaway MD Unavailable Brady Lion MD Unavailable Un available Nima FranceC Unavailable [phone] Camille Chandler PA-C Unavailable [phone] Anabela Barakat APRN LINING REPAIRER Unavailable Nima FranceC Unavailable [phone] Basilio Morillo DO Unavailable [phone] Fawad York MD Unavailable [phone] Roopa Almonte MD Unavailable [phone] Augustine Callaway MD Unavailable Maryse Burton [...] Paula Reza MD Unavailable Keerthi Miner APRN LINING REPAIRER Unavailable Herman, Shahida Cummings APRN LINING REPAIRER Unavailable Un available Porsha Michaels APRN LINING REPAIRER Unavailable [phone] Paula Reza MD Unavailable Herman, Shahida Cummings APRN LINING REPAIRER Unavailable Un available Daylin Ludwig Unavailable [phone] Laurel Velasquez MD Unavailable Daylin Ludwig Unavailable [phone] Paula Reza MD Unavailable Porsha Michaels APRN LINING REPAIRER Unavailable [phone] Laurel Velasquez MD Unavailable Herman, Shahida Cummings APRN LINING REPAIRER Unavailable Un available Marilin Montaño LINING REPAIRER Unavailable Esha Dewitt MD Unavailable [phone] Heather Mosquear MD Unavailable Paula Reza MD Unavailable Esha Dewitt MD Unavailable [phone] Valdo Escamilla PA-C Unavailable Nohelia Abarca PA-C Unavailable [phone] Heather Mosquera MD Unavailable Fawad York MD Unavailable Reason for Visit * Reason Onset Date Comments Pt. Information/instruction 11/12/2008 Rece nt discussion with Dr. Walker Encounter Details Date Type Department Care Team (Late st Contact Info) Description 11/12/2008 [facility] [address] [phone] Dixon Carson MD [address] [id number] Pt. Information/instruct ion (Recent discus... 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 Rule Out COVID-19 01/05/2021 01/05/2021 01/06/2021 12:57 PM CDT ESBL 01/05/2021 01/05/2021 Rule Out COVID-19 06/30/2021 06/30/2021 07/01/2021 9:34 AM CDT Rule Out COVID-19 07/25/2021 07/25/2021 07/25/2021 8:02 PM CDT documented as of this encounter Care Teams Research Epidemiologist Relationship Specialty Start Date End Date Dixon Carson MD PCP - General 08/10/03 07/21/09 Mingo Aldana MD PCP - General Family Practice 07/22/09 07/12/14 Shahida Sutton APRN LINING REPAIRER PCP - General Nurse Practitioner 08/17/14 08/04/21 Shahida Sutton APRN LINING REPAIRER PCP - Assigned PCP 07/12/14 05/07/18 Paula Reza MD [address] [facility] 200 [place] [address] PCP - General Internal Medicine 08/05/21 Shahida Sutton APRN LINING REPAIRER Assigned PCP 07/12/14 09/30/21 Carolynn Ramon, KASIE Personal Advocate & Liaison (PAL) 12/17/18 08/07/21 [place] [address] [place] [address] Assigned Musculoskeletal Provider 12/26/19 08/21/20 Brady Lion MD Assigned Heart and Vascular Provider 12/26/19 08/14/20 Nima France PA-C 6545 [facility] [address] [place] [address] Assigned Surgical Provider 05/19/20 08/21/20 Camille Chandler PA-C [address] [facility] [address] [place] [address] Assigned Neuroscience Provider 05/19/20 09/14/20 Anabela Barakat APRN LINING REPAIRER 1700 [place] [address] Assigned Heart and Vascular Provider 08/15/20 08/05/21 Nima France PA-C 6545 [facility] [address] [place] [address] Assigned Musculoskeletal Provider 08/22/20 11/13/20 [place] [address] [place] [address] Assigned Musculoskeletal Provider 11/14/20 12/04/20 Fawad York MD [address] [place] [address] Assigned Musculoskeletal Provider 12/05/20 02/05/21 Roopa Almonte MD [address] [facility] 200 [place] [address] Endocrinology, Diabetes, and Metabolism 01/19/21 [place] [address] [facility] [address] [place] [address] Assigned Musculoskeletal Provider 02/06/21 09/16/21 Maryse Burton PA-C [address] [facility] [place] [address] Physician Cytology Manager Dermatology 04/14/21 Marquita Starkey MD [address] [facility] 200 [place] [address] Internal Medicine 05/06/21 05/06/21 Roopa Almonte MD [address] [facility] 200 [place] [address] Hospitalist Endocrinology, Diabetes, and Metabolism 05/30/21 Griffin Joshi MD [address] [facility] [address] [place] [address] Cardiovascular Disease 07/25/21 Rina Magallon, RN Lead Casting Operator 07/29/21 07/11/22 Griffin Joshi MD [address] [facility] [place] [place] [address] Assigned Heart and Vascular Provider 08/06/21 10/07/21 Roopa Almonte MD [address] [facility] 200 [place], [place] [address] Assigned Endocrinology Provider 09/10/21 [place] [address] [facility] [place] [address] Assigned Musculoskeletal Provider 09/17/21 10/14/21 Lydia Bernstein PA-C [address] [place] [address] Assigned PCP 10/01/21 10/21/21 Rosa Maria Love Cristina Community Health Worker 10/06/21 [place] [address] [place], [place] [address] Assigned Musculoskeletal Provider 10/15/21 04/26/23 Paula Reza MD [address] [facility] 200 [place] [address] Assigned PCP 10/22/21 12/23/21 Keerthi Miner APRN LINING REPAIRER [address] [place] [address] Assigned Heart and Vascular Provider 10/08/21 02/10/22 Shahida Sutton APRN LINING REPAIRER Assigned PCP 12/24/21 03/24/22 Porsha Michaels APRN LINING REPAIRER [address] [place] [address] Assigned Heart and Vascular Provider 02/11/22 05/12/22 Paula Reza MD [address] [facility] [address] [place] [address] Assigned PCP 03/25/22 04/07/22 Shahida Sutton APRN LINING REPAIRER [address] [place] [address] Assigned PCP 04/08/22 06/30/22 Daylin Ludwig, MIKI [facility] [address] [place] [address] Cardiac Rehabilitation Therapist 05/16/23 Laurel Velasquez MD [address] [place] [address] Assigned Heart and Vascular Provider 05/13/22 06/30/22 Daylin Ludwig, MIKI [facility] [address] [place] [address] Cardiac Rehabilitation Therapist 06/08/22 06/09/23 Paula Reza MD [address] [facility] 200 [place] [address] Assigned PCP 07/01/22 07/07/22 Porsha Michaels APRN LINING REPAIRER [address] [place] [address] Assigned Heart and Vascular Provider 07/01/22 07/07/22 Laurel Velasquez MD [address] [place] [address] Assigned Heart and Vascular Provider 07/08/22 08/04/22 hSahida Sutton APRN LINING REPAIRER Assigned PCP 07/08/22 09/08/22 Marilin Montaño, LINING REPAIRER [address] [place] [address] Assigned Heart and Vascular Provider 08/05/22 Esha Dewitt MD [address] [address] Gastroenterology 09/06/22 Heather Mosquera MD [address] [place], [place] [address] Internal Medicine 09/06/22 Paula Reza MD [address] [facility] 200 [place], [place] [address] Assigned PCP 09/09/22 01/05/23 Esha Dewitt MD [address] [address] Assigned Gastroenterology Provider 09/23/22 Valdo Escamilla PA-C [address] [facility] 103 [place], [place] [address] Assigned Neuroscience Provider 09/30/22 Nohelia Abarca PA-C [address] [place], [place] [address] Physician Cytology Manager Gastroenterology 10/03/22 Heather Mosquera MD [address] [place], [place] [address] Assigned PCP 01/06/23 Fawad York MD [address] [place], [place] [address] Assigned Musculoskeletal Provider 04/27/23 06/25/23 documented as of this encounter
--- OUTSIDE RECORDS SUMMARY | 2023-10-02 15:52 | XMS_ITS | Encounter Summary ---
Author Organization [facility] Address [address] [place] [address] Care Team Providers Care Model Dresser Name Role Phone Dixon Carson MD Primary Care Provider Mingo Aldana MD Primary Car e Provider Shahida Sutton STATION INSTALLER FILE SYSTEM INSTALLER Primary Care Provi ford Unavailable Herman, Shahida Cummings APRN FILE SYSTEM INSTALLER Unavailable Un available Herman, Shahida Cummings APRN FILE SYSTEM INSTALLER Unavailable Un available Carolynn Ramon RN Unavailable [phone] Augustine Callaway MD Unavailable Brady Lion MD Unavailable Un available Nima FranceC Unavailable [phone] Camille Chandler PA-C Unavailable [phone] Anabela Barakat APRN FILE SYSTEM INSTALLER Unavailable Nima FranceC Unavailable [phone] Basilio Morillo DO Unavailable [phone] Fawad York MD Unavailable [phone] Roopa Almonte MD Unavailable [phone] Augustine Callaway MD Unavailable Maryse Burton [...] Paula Reza MD Unavailable Keerthi Miner APRN FILE SYSTEM INSTALLER Unavailable Herman, Shahida Cummings APRN FILE SYSTEM INSTALLER Unavailable Un available Porsha Michaels APRN FILE SYSTEM INSTALLER Unavailable [phone] Paula Reza MD Unavailable Herman, Shahida Cummings APRN FILE SYSTEM INSTALLER Unavailable Un available Daylin Ludwig Unavailable [phone] Laurel Velasquez MD Unavailable Daylin Ludwig Unavailable [phone] Paula Reza MD Unavailable Porsha Michaels APRN FILE SYSTEM INSTALLER Unavailable [phone] Laurel Velasquez MD Unavailable Herman, Shahida Cummings APRN FILE SYSTEM INSTALLER Unavailable Un available Marilin Montaño FILE SYSTEM INSTALLER Unavailable Esha Dewitt MD Unavailable [phone] Heather Mosquera MD Unavailable Paula Reza MD Unavailable Esha Dewitt MD Unavailable [phone] Ayserick Valdo Desouza PA-C Unavailable Nohelia AbarcaC Unavailable [phone] Heather Mosquera MD Unavailable Fawad York MD Unavailable Reason for Visit * Reason Onset Date Comments Refill Request 09/25/2008 vicodin Encounter Details Date Type Department Care Team (Late st Contact Info) Description 09/25/2008 MyC Refill [address] [address] Dixon Carson MD [address] [address] Refill Request (vicodin) Social History Tobacco Use [...] for low back pain Date last filled: #[id number] (RX STATES #60/MO) NOT A PSO FRANCO Nolasco RN * Telephone Encounter - Liliana Nolasco - 09/25/2008 10:03 AM CDT[facility] Mauro Terrell would like a refill of the following medications: HYDROCODONE-ACETAMINOPHEN 10-325 MG OR TABS [Dixon Carson MD] Preferred pharmacy: [facility] Comment: Still dealing with daily debilitating headaches [...] Out COVID-19 02/15/2020 02/15/2020 02/16/2020 2:32 PM [employer] Rule Out COVID-19 01/05/2021 01/05/2021 01/06/2021 12:57 PM CDT ESBL 01/05/2021 01/05/2021 Rule Out COVID-19 06/30/2021 06/30/2021 07/01/2021 9:34 AM CDT Rule Out COVID-19 07/25/2021 07/25/2021 07/25/2021 8:02 PM CDT documented as of this encounter Care Teams Model Dresser Relationship Specialty Start Date End Date Dixon Carson MD PCP - General 08/10/03 07/21/09 Mingo Aldana MD PCP - General Family Practice 07/22/09 07/12/14 Shahida Sutton APRN FILE SYSTEM INSTALLER PCP - General Nurse Practitioner 08/17/14 08/04/21 Shahida Sutton APRN FILE SYSTEM INSTALLER PCP - Assigned PCP 07/12/14 05/07/18 Paula Reza MD [address] [facility] [address] [place] [address] PCP - General Internal Medicine 08/05/21 Shahida Sutton APRN FILE SYSTEM INSTALLER Assigned PCP 07/12/14 09/30/21 Carolynn Ramon RN Personal Advocate & Liaison (PAL) 12/17/18 08/07/21 [place] [address] [place] [address] Assigned Musculoskeletal Provider 12/26/19 08/21/20 Brady Lion MD Assigned Heart and Vascular Provider 12/26/19 08/14/20 Nima France PA-C [address] [facility] [address] [place] [address] Assigned Surgical Provider 05/19/20 08/21/20 Camille Chandler PA-C [address] [facility] S [facility] [address] [place] [address] Assigned Neuroscience Provider 05/19/20 09/14/20 Anabela Barakat APRN FILE SYSTEM INSTALLER [address] [place] [address] Assigned Heart and Vascular Provider 08/15/20 08/05/21 Nima France PA-C [address] [place] [address] Assigned Musculoskeletal Provider 08/22/20 11/13/20 [place] [address] [facility] [place] [address] Assigned Musculoskeletal Provider 11/14/20 12/04/20 Fawad York MD [address] [place] [address] Assigned Musculoskeletal Provider 12/05/20 02/05/21 Roopa Almonte MD [address] [facility] [facility] [address] [place] [address] Endocrinology, Diabetes, and Metabolism 01/19/21 [place] [address] [facility] [address] [place] [address] Assigned Musculoskeletal Provider 02/06/21 09/16/21 Maryse Burton PAAna MariaC [address] [place] [address] Physician Bunch Breaker Dermatology 04/14/21 Marquita Starkey MD [address] [facility] [facility] [address] [place] [address] Internal Medicine 05/06/21 05/06/21 Roopa Almonte MD [address] [facility] [facility] [address] [place] [address] Hospitalist Endocrinology, Diabetes, and Metabolism 05/30/21 Griffin Joshi MD [address] [facility] [address] [place] [address] Cardiovascular Disease 07/25/21 Rina Magallon, RN Lead Plastic Surgeon 07/29/21 07/11/22 Griffin Joshi MD [address] [place] [address] Assigned Heart and Vascular Provider 08/06/21 10/07/21 Roopa Almonte MD [address] [facility] [address] [place], [place] [address] Assigned Endocrinology Provider 09/10/21 [place] [address] [facility] [place] [address] Assigned Musculoskeletal Provider 09/17/21 10/14/21 Lydia Bernstein PA-C [address] [place] [address] Assigned PCP 10/01/21 10/21/21 Rosa Maria Love CHW Community Health Worker 10/06/21 [place] [address] [place] [address] Assigned Musculoskeletal Provider 10/15/21 04/26/23 Paula Reza MD [address] [facility] [address] [place] [address] Assigned PCP 10/22/21 12/23/21 Keerthi Miner APRN FILE SYSTEM INSTALLER [address] [place] [address] Assigned Heart and Vascular Provider 10/08/21 02/10/22 Shahida Sutton APRN FILE SYSTEM INSTALLER Assigned PCP 12/24/21 03/24/22 Porsha Michaels APRN FILE SYSTEM INSTALLER [address] [place] [address] Assigned Heart and Vascular Provider 02/11/22 05/12/22 Paual Reza MD [address] [place] [address] Assigned PCP 03/25/22 04/07/22 Shahida Sutton APRN FILE SYSTEM INSTALLER [address] [place] [address] Assigned PCP 04/08/22 06/30/22 Daylin Ludwig, EP [facility] [address] [place] [address] Cardiac Rehabilitation Therapist 05/16/23 Laurel Velasquez MD [address] [place] [address] Assigned Heart and Vascular Provider 05/13/22 06/30/22 Daylin Ludwig, MIKI [facility] [address] [place] [address] Cardiac Rehabilitation Therapist 06/08/22 06/09/23 Paula Reza MD [address] [place] [address] Assigned PCP 07/01/22 07/07/22 Porsha Michaels APRN FILE SYSTEM INSTALLER [address] [place] [address] Assigned Heart and Vascular Provider 07/01/22 07/07/22 Laurel Velasquez MD [address] [place] [address] Assigned Heart and Vascular Provider 07/08/22 08/04/22 Shahida Sutton APRN FILE SYSTEM INSTALLER Assigned PCP 07/08/22 09/08/22 Marilin Montaño, FILE SYSTEM INSTALLER [address] [place] [address] Assigned Heart and Vascular Provider 08/05/22 Esha Dewitt MD [address] [facility] [address] [place] [address] Gastroenterology 09/06/22 Heather Mosquera MD [address] [place] [address] Internal Medicine 09/06/22 Paula Reza MD [address] [facility] [address] [place], [place] [address] Assigned PCP 09/09/22 01/05/23 Esha Dewitt MD [address] [facility] [address] [place] [address] Assigned Gastroenterology Provider 09/23/22 Valdo Escamilla PA-C [address] [facility] [address] [place] [address] Assigned Neuroscience Provider 09/30/22 Nohelia Abarca PA-C [address] [facility] [place], [place] [address] Physician Bunch Breaker Gastroenterology 10/03/22 Heather Mosquera MD [address] [place] [address] Assigned PCP 01/06/23 Fawad York MD [address] [place], [place] [address] Assigned Musculoskeletal Provider 04/27/23 06/25/23 documented as of this encounter
--- OUTSIDE RECORDS SUMMARY | 2023-10-02 15:52 | XMS_ITS | Encounter Summary ---
Author Organization [place] Address [address] [place] [address] Care Team Providers Care Knife Finisher Name Role Phone Dixon Carson MD Primary Care Provider Mingo Aldana MD Primary Car e Provider Shahida Sutton PRINTING FILM STRIPPER YARDER PUNCHER Primary Care Provi ford Unavailable Herman, Shahida Cummings APRN YARDER PUNCHER Unavailable Un available Herman, Shahida Cummings APRN YARDER PUNCHER Unavailable Un available Carolynn Ramon RN Unavailable [phone] Augustine Callaway MD Unavailable Brady Lion MD Unavailable Un available Nima FranceC Unavailable [phone] Camille Chandler PA-C Unavailable [phone] Anabela Barakat APRN YARDER PUNCHER Unavailable Nima FranceC Unavailable [phone] Basilio Morillo DO Unavailable [phone] Fawad York MD Unavailable [phone] Roopa Almonte MD Unavailable [phone] Augustine Callaway MD Unavailable Maryse Burton [...] Paula Reza MD Unavailable Keerthi Miner APRN YARDER PUNCHER Unavailable Herman, Shahida Cummings APRN YARDER PUNCHER Unavailable Un available Porsha Michaels APRN YARDER PUNCHER Unavailable [phone] Paula Reza MD Unavailable Herman, Shahida Cummings APRN YARDER PUNCHER Unavailable Un available Daylin Ludwig Unavailable [phone] Laurel Velasquez MD Unavailable Daylin Ludwig Unavailable [phone] Paula Reza MD Unavailable Porsha Michaels APRN YARDER PUNCHER Unavailable [phone] Laurel Velasquez MD Unavailable Herman, Shahida Cummings APRN YARDER PUNCHER Unavailable Un available Marilin Montaño YARDER PUNCHER Unavailable Esha Dewitt MD Unavailable [phone] Heather Mosquera MD Unavailable Paula Reza MD Unavailable Esha Dewitt MD Unavailable [phone] Ayserick Valdo Desouza PA-C Unavailable Nohelia AbarcaC Unavailable [phone] Heather Mosquera MD Unavailable Fawad York MD Unavailable [phone] Reason for Visit * Reason Onset Date Comments MyChart Communication 12/11/2007 refill req uest: krish Encounter Details Date Type Department Care Team (Late st Contact Info) Description 12/11/[address] [address] Dixon Carson MD [address] [address] MyChart Communication (refill request: all... 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 Rule Out COVID-19 01/05/2021 01/05/2021 01/06/2021 12:57 PM CDT ESBL 01/05/2021 01/05/2021 Rule Out COVID-19 06/30/2021 06/30/2021 07/01/2021 9:34 AM CDT Rule Out COVID-19 07/25/2021 07/25/2021 07/25/2021 8:02 PM CDT documented as of this encounter Care Teams Knife Finisher Relationship Specialty Start Date End Date Dixon Carson MD PCP - General 08/10/03 07/21/09 Mingo Aldana MD PCP - General Family Practice 07/22/09 07/12/14 Shahida Sutton APRN YARDER PUNCHER PCP - General Nurse Practitioner 08/17/14 08/04/21 Shahida Sutton APRN YARDER PUNCHER PCP - Assigned PCP 07/12/14 05/07/18 Paula Reza MD [address] [facility] [address] [place] [address] PCP - General Internal Medicine 08/05/21 Shahida Sutton APRN YARDER PUNCHER Assigned PCP 07/12/14 09/30/21 Carolynn Ramon RN Personal Advocate & Liaison (PAL) 12/17/18 08/07/21 [place] [address] [place] [address] Assigned Musculoskeletal Provider 12/26/19 08/21/20 Brday Lion MD Assigned Heart and Vascular Provider 12/26/19 08/14/20 Nima France PA-C [address] [place] [address] Assigned Surgical Provider 05/19/20 08/21/20 Camille Chandler PA-C [address] [facility] [address] [place] [address] Assigned Neuroscience Provider 05/19/20 09/14/20 Anabela Barakat APRN YARDER PUNCHER [address] [place] [address] Assigned Heart and Vascular Provider 08/15/20 08/05/21 Nima France PA-C [address] [place] [address] Assigned Musculoskeletal Provider 08/22/20 11/13/20 [place] [address] [facility] [place] [address] Assigned Musculoskeletal Provider 11/14/20 12/04/20 Fawad York MD [address] [place] [address] Assigned Musculoskeletal Provider 12/05/20 02/05/21 Roopa Almonte MD [address] [facility] [address] [place] [address] Endocrinology, Diabetes, and Metabolism 01/19/21 [place] [address] [facility] [address] [place] [address] Assigned Musculoskeletal Provider 02/06/21 09/16/21 Maryse Burton, PA-C [address] [place] [address] Physician Gasoline Engine Inspector Dermatology 04/14/21 Marquita Starkey MD [address] [facility] [address] [place] [address] Internal Medicine 05/06/21 05/06/21 Roopa Almonte MD [address] [facility] [address] [place] [address] Hospitalist Endocrinology, Diabetes, and Metabolism 05/30/21 Griffin Joshi MD [address] [facility] [address] [place] [address] Cardiovascular Disease 07/25/21 Rina Magallon, RN Lead Transportation Aide 07/29/21 07/11/22 Griffin Joshi MD [address] [facility] [address] [place] [address] Assigned Heart and Vascular Provider 08/06/21 10/07/21 Roopa Almonte MD [address] [facility] [address] [place], [place] [address] Assigned Endocrinology Provider 09/10/21 [place] [address] [facility] [place] [address] Assigned Musculoskeletal Provider 09/17/21 10/14/21 Lydia Bernstein, TRACEY [address] [facility] [address] [place] [address] Assigned PCP 10/01/21 10/21/21 Rosa Maria Love Cristina Community Health Worker 10/06/21 [place] [address] [address] [facility] [address] [place] [address] Assigned Musculoskeletal Provider 10/15/21 04/26/23 Paula Reza MD [address] [facility] [address] [place] [address] Assigned PCP 10/22/21 12/23/21 Keerthi Miner APRN YARDER PUNCHER [address] [place] [address] Assigned Heart and Vascular Provider 10/08/21 02/10/22 Shahida Sutton APRN YARDER PUNCHER Assigned PCP 12/24/21 03/24/22 Porsha Michaels APRN YARDER PUNCHER [address] [place] [address] Assigned Heart and Vascular Provider 02/11/22 05/12/22 Paula Reza MD [address] [place] [address] Assigned PCP 03/25/22 04/07/22 Shahida Sutton APRN YARDER PUNCHER [address] [place] [address] Assigned PCP 04/08/22 06/30/22 Daylin Ludwig, EP [facility] [address] [place] [address] Cardiac Rehabilitation Therapist 05/16/23 Laurel Velasquez MD [address] [place] [address] Assigned Heart and Vascular Provider 05/13/22 06/30/22 Daylin Ludwig, EP [facility] [address] [place] [address] Cardiac Rehabilitation Therapist 06/08/22 06/09/23 Paula Reza MD [address] [place] [address] Assigned PCP 07/01/22 07/07/22 Porsha Michaels APRN YARDER PUNCHER [address] [place] [address] Assigned Heart and Vascular Provider 07/01/22 07/07/22 Laurel Velasquez MD [address] [place] [address] Assigned Heart and Vascular Provider 07/08/22 08/04/22 Shahida Sutton APRN YARDER PUNCHER Assigned PCP 07/08/22 09/08/22 Marilin Montaño, YARDER PUNCHER [address] [place] [address] Assigned Heart and Vascular Provider 08/05/22 Ehsa Dewitt MD [address] [address] Gastroenterology 09/06/22 Heather Mosquera MD [address] [place] [address] Internal Medicine 09/06/22 Paula Reza MD [address] [place], [place] [address] Assigned PCP 09/09/22 01/05/23 Esha Dewitt MD 420 [facility] 36 [place] [address] Assigned Gastroenterology Provider 09/23/22 Valdo Escamilla PA-C [address] [facility] [address] [place] [address] Assigned Neuroscience Provider 09/30/22 Nohelia Abarca PA-C [address] [place] [address] Physician Gasoline Engine Inspector Gastroenterology 10/03/22 Heather Mosquera MD [address] [place] [address] Assigned PCP 01/06/23 Fawad York MD [address] [place], [place] [address] Assigned Musculoskeletal Provider 04/27/23 06/25/23 documented as of this encounter
--- OUTSIDE RECORDS SUMMARY | 2023-10-02 15:53 | XMS_ITS | Encounter Summary ---
Author Organization [facility] Address [address] [place] [address] Care Team Providers Care Toddler Teacher Name Role Phone Dixon Carson MD Primary Care Provider Mingo Aldana MD Primary Car e Provider Shahida Sutton DESKTOP SUPPORT TECHNICIAN CORPORATE REAL ESTATE SPECIALIST Primary Care Provi ford Unavailable Herman, Shahida Cummings APRN CORPORATE REAL ESTATE SPECIALIST Unavailable Un available Herman, Shahida Cummings APRN CORPORATE REAL ESTATE SPECIALIST Unavailable Un available Carolynn Ramon RN Unavailable [phone] Augustine Callaway MD Unavailable Brady Lion MD Unavailable Un available Nima FranceC Unavailable [phone] Camille Chandler PA-C Unavailable [phone] Anabela Barakat APRN CORPORATE REAL ESTATE SPECIALIST Unavailable Nima FranceC Unavailable [phone] Basilio Morillo DO Unavailable [phone] Fawad York MD Unavailable [phone] Roopa Almonte MD Unavailable [phone] Augustine Callaway MD Unavailable Maryse Burton [...] Paula Reza MD Unavailable Keerthi Miner APRN CORPORATE REAL ESTATE SPECIALIST Unavailable Herman, Shahida Cummings APRN CORPORATE REAL ESTATE SPECIALIST Unavailable Un available Porsha Michaels APRN CORPORATE REAL ESTATE SPECIALIST Unavailable [phone] Paula Reza MD Unavailable Herman, Shahida Cummings APRN CORPORATE REAL ESTATE SPECIALIST Unavailable Un available Daylin Ludwig Unavailable [phone] Laurel Velasquez MD Unavailable Daylin Ludwig Unavailable [phone] Paula Reza MD Unavailable Porsha Michaels APRN CORPORATE REAL ESTATE SPECIALIST Unavailable [phone] Laurel Velasquez MD Unavailable Herman, Shahida Cummings APRN CORPORATE REAL ESTATE SPECIALIST Unavailable Un available Marilin Montaño CORPORATE REAL ESTATE SPECIALIST Unavailable Esha Dewitt MD Unavailable [phone] Heather Mosquera MD Unavailable Paula Reza MD Unavailable Esha Dewitt MD Unavailable [phone] Valdo Escamilla PA-C Unavailable Nohelia Abarca PA-C Unavailable [phone] Heather Mosquera MD Unavailable [phone] Fawad York MD Unavailable [phone] Encounter Details Date Type Department Care Team (Late st Contact Info) Description 05/01/2007 [facility] [address] [address] Dixon Carson MD [address] [address] HEADACHE (Primary Dx) Social History [...] 4:28 PM CST Understood, will rx vicodin ICAL RESEARCH ASSISTANT documented in this encounter Plan of Treatment Not on file documented as of this encounter Visit Diagnoses Diagnosis Headache(784.0)- Primary Headache documented in this encounter Additional Health Concerns Infection Onset Date Last Indicated Resolved Time Rule Out COVID-19 02/15/2020 02/15/2020 02/16/2020 2:32 PM CLINICAL RESEARCH ASSISTANT Rule Out COVID-19 01/05/2021 01/05/2021 01/06/2021 12:57 PM CDT ESBL 01/05/2021 01/05/2021 Rule Out COVID-19 06/30/2021 06/30/2021 07/01/2021 9:34 AM CDT Rule Out COVID-19 07/25/2021 07/25/2021 07/25/2021 8:02 PM CDT documented as of this encounter Care Teams Toddler Teacher Relationship Specialty Start Date End Date Dixon Carson MD PCP - General 08/10/03 07/21/09 Mingo Aldana MD PCP - General Family Practice 07/22/09 07/12/14 Shahida Sutton APRN CORPORATE REAL ESTATE SPECIALIST PCP - General Nurse Practitioner 08/17/14 08/04/21 Shahida Sutton APRN CORPORATE REAL ESTATE SPECIALIST PCP - Assigned PCP 07/12/14 05/07/18 Paula Reza MD [address] [facility] [address] [place], [place] [address] PCP - General Internal Medicine 08/05/21 Shahida Sutton APRN CORPORATE REAL ESTATE SPECIALIST Assigned PCP 07/12/14 09/30/21 Carolynn Ramon, KASIE Personal Advocate & Liaison (PAL) 12/17/18 08/07/21 [place] [address] [place] [address] Assigned Musculoskeletal Provider 12/26/19 08/21/20 Brady Lion MD Assigned Heart and Vascular Provider 12/26/19 08/14/20 Nima France PA-C [address] [place] [address] Assigned Surgical Provider 05/19/20 08/21/20 Camille Chandler PA-C [address] [place], [place] [address] Assigned Neuroscience Provider 05/19/20 09/14/20 Anabela Barakat APRN CNP [address] [place] [address] Assigned Heart and Vascular Provider 08/15/20 08/05/21 Nima France PA-C [address] [facility] [address] [place] [address] Assigned Musculoskeletal Provider 08/22/20 11/13/20 [place] [address] [facility] [place], [place] [address] Assigned Musculoskeletal Provider 11/14/20 12/04/20 Fawad York MD [address] [place], [place] [address] Assigned Musculoskeletal Provider 12/05/20 02/05/21 Roopa Almonte MD [address] [facility] [address] [place] [address] Endocrinology, Diabetes, and Metabolism 01/19/21 [place] [address] [facility] [address] [place] [address] Assigned Musculoskeletal Provider 02/06/21 09/16/21 Maryse Burton PA-C [address] [place] [address] Physician Residential Treatment Counselor Dermatology 04/14/21 Marquita Starkey MD [address] [facility] [address] [place], [place] [address] Internal Medicine 05/06/21 05/06/21 Roopa Almonte MD [address] [facility] [address] [place] [address] Hospitalist Endocrinology, Diabetes, and Metabolism 05/30/21 Griffin Joshi MD [address] [facility] [address] [place], [place] [address] Cardiovascular Disease 07/25/21 Rnia Magallon, RN Lead Kiln Furniture Caster 07/29/21 07/11/22 Griffin Joshi MD [address] [facility] [address] [place] [address] Assigned Heart and Vascular Provider 08/06/21 10/07/21 Roopa Almonte MD [address] [facility] 200 [place] [address] Assigned Endocrinology Provider 09/10/21 [place] [address] [facility] [place] [address] Assigned Musculoskeletal Provider 09/17/21 10/14/21 Lydia Bernstein PA-C [address] [place] [address] Assigned PCP 10/01/21 10/21/21 Rosa Maria Love Cristina Community Health Worker 10/06/21 [place] [address] [place] [address] Assigned Musculoskeletal Provider 10/15/21 04/26/23 Paula Reza MD [address] [place] [address] Assigned PCP 10/22/21 12/23/21 Keerthi Miner APRN CORPORATE REAL ESTATE SPECIALIST [address] [place] [address] Assigned Heart and Vascular Provider 10/08/21 02/10/22 Shahida Sutton, DUANE CORPORATE REAL ESTATE SPECIALIST Assigned PCP 12/24/21 03/24/22 Porsha Michaels APRN CORPORATE REAL ESTATE SPECIALIST [address] [place] [address] Assigned Heart and Vascular Provider 02/11/22 05/12/22 Paula Reza MD [address] [place] [address] Assigned PCP 03/25/22 04/07/22 Shahida Sutton APRN CORPORATE REAL ESTATE SPECIALIST [address] [place] [address] Assigned PCP 04/08/22 06/30/22 Daylin Ludwig, MIKI [facility] [address] [place] [address] Cardiac Rehabilitation Therapist 05/16/23 Laurel Velasquez MD [address] [place] [address] Assigned Heart and Vascular Provider 05/13/22 06/30/22 Daylin Ludwig, MIKI [facility] [address] [place] [address] Cardiac Rehabilitation Therapist 06/08/22 06/09/23 Paula Reza MD [address] [facility] [address] [place] [address] Assigned PCP 07/01/22 07/07/22 Porsha Michaels APRN CORPORATE REAL ESTATE SPECIALIST [address] [place] [address] Assigned Heart and Vascular Provider 07/01/22 07/07/22 Laurel Velasquez MD [address] [place] [address] Assigned Heart and Vascular Provider 07/08/22 08/04/22 Shahida Sutton APRN CORPORATE REAL ESTATE SPECIALIST Assigned PCP 07/08/22 09/08/22 Marilin Montaño, CORPORATE REAL ESTATE SPECIALIST [address] [place] [address] Assigned Heart and Vascular Provider 08/05/22 Esha Dewitt MD [address] [address] Gastroenterology 09/06/22 Heather Mosquera MD [address] [place] [address] Internal Medicine 09/06/22 Paula Reza MD [address] [facility] 200 [place] [address] Assigned PCP 09/09/22 01/05/23 Esha Dewitt MD [address] [address] Assigned Gastroenterology Provider 09/23/22 Valdo Escamilla PA-C [address] [facility] [address] [place] [address] Assigned Neuroscience Provider 09/30/22 Nohelia Abarca PA-C [address] [place] [address] Physician Residential Treatment Counselor Gastroenterology 10/03/22 Heather Mosquera MD [address] [place] [address] Assigned PCP 01/06/23 Fawad York MD [address] [place] [address] Assigned Musculoskeletal Provider 04/27/23 06/25/23 documented as of this encounter
--- OUTSIDE RECORDS SUMMARY | 2023-10-02 15:53 | XMS_ITS | Encounter Summary ---
Author Organization [facility] Address [address] [place] [address] Care Team Providers Care Pediatric Urologist Name Role Phone Dixon Carson MD Primary Care Provider Mingo Aldana MD Primary Car e Provider Shahida Sutton SIZER MACHINE SERGING MACHINE OPERATOR Primary Care Provi ford Unavailable Herman, Shahida Cummings APRN SERGING MACHINE OPERATOR Unavailable Un available Herman, Shahida Cummings APRN SERGING MACHINE OPERATOR Unavailable Un available Carolynn Ramon RN Unavailable [phone] Augustine Clalaway MD Unavailable Brady Lion MD Unavailable Un available Nima FranceC Unavailable [phone] Camille Chandler PA-C Unavailable [phone] Anabela Barakat APRN SERGING MACHINE OPERATOR Unavailable Nima FranceC Unavailable [phone] Basilio oMrillo DO Unavailable [phone] Fawad York MD Unavailable [phone] Roopa Almonte MD Unavailable [phone] Augustine Callaway MD Unavailable Maryse Burton [...] Paula Reza MD Unavailable Keerthi Miner APRN SERGING MACHINE OPERATOR Unavailable Herman, Shahida Cummings APRN SERGING MACHINE OPERATOR Unavailable Un available Porsha Michaels APRN SERGING MACHINE OPERATOR Unavailable [phone] Paula Reza MD Unavailable Herman, Shahida Cummings APRN SERGING MACHINE OPERATOR Unavailable Un available Daylin Ludwig Unavailable [phone] Laurel Velasquez MD Unavailable Daylin Ludwig Unavailable [phone] Paula Reza MD Unavailable Porsha Michaels APRN SERGING MACHINE OPERATOR Unavailable [phone] Laurel Velasquez MD Unavailable Herman, Shahida Cummings APRN SERGING MACHINE OPERATOR Unavailable Un available Marilin Montaño SERGING MACHINE OPERATOR Unavailable Esha Dewitt MD Unavailable [phone] Heather Mosquera MD Unavailable Paula Reza MD Unavailable Esha Dewitt MD Unavailable [phone] Valdo Escamilla PA-C Unavailable Nohelia AbarcaC Unavailable [phone] Heather Mosquera MD Unavailable [phone] Fawad York MD Unavailable Reason for Visit * Reason Onset Date Comments Pt. Information/instruction 06/13/2007 Encounter Details Date Type Department Care Team (Late st Contact Info) Description 06/12/2007 [facility] [place] Medical Advice [address] [address] Dixon Carson MD [address] [address] Pt. Information/instruct ion Social History Tobacco Use [...] Out COVID-19 02/15/2020 02/15/2020 02/16/2020 2:32 PM FIRE ENGINE OPERATOR Rule Out COVID-19 01/05/2021 01/05/2021 01/06/2021 12:57 PM CDT ESBL 01/05/2021 01/05/2021 Rule Out COVID-19 06/30/2021 06/30/2021 07/01/2021 9:34 AM CDT Rule Out COVID-19 07/25/2021 07/25/2021 07/25/2021 8:02 PM CDT documented as of this encounter Care Teams Pediatric Urologist Relationship Specialty Start Date End Date Dixon Carson MD PCP - General 08/10/03 07/21/09 Mingo Aldana MD PCP - General Family Practice 07/22/09 07/12/14 Shahida Sutton APRN SERGING MACHINE OPERATOR PCP - General Nurse Practitioner 08/17/14 08/04/21 Shahida Sutton APRN SERGING MACHINE OPERATOR PCP - Assigned PCP 07/12/14 05/07/18 Paula Reza MD [address] [facility] [address] [place], [place] [address] PCP - General Internal Medicine 08/05/21 Shahida Sutton APRN SERGING MACHINE OPERATOR Assigned PCP 07/12/14 09/30/21 Carloynn Ramon RN Personal Advocate & Liaison (PAL) 12/17/18 08/07/21 [place] [address] [place] [address] Assigned Musculoskeletal Provider 12/26/19 08/21/20 Brady Lion MD Assigned Heart and Vascular Provider 12/26/19 08/14/20 Nima France PA-C [address] [facility] [address] [place] [address] Assigned Surgical Provider 05/19/20 08/21/20 Camlile Chandler PA-C [address] [facility] [address] [place], [place] [address] Assigned Neuroscience Provider 05/19/20 09/14/20 Anabela Barakat APRN SERGING MACHINE OPERATOR [address] [place] [address] Assigned Heart and Vascular Provider 08/15/20 08/05/21 Nima France PA-C [address] [facility] 450 [place] [address] Assigned Musculoskeletal Provider 08/22/20 11/13/20 [place] [address] [place], [place] [address] Assigned Musculoskeletal Provider 11/14/20 12/04/20 Fawad York MD [address] [place], [place] [address] Assigned Musculoskeletal Provider 12/05/20 02/05/21 Roopa Almonte MD [address] [facility] 200 [place], [place] [address] Endocrinology, Diabetes, and Metabolism 01/19/21 [place] [address] [facility] 300 [place] [address] Assigned Musculoskeletal Provider 02/06/21 09/16/21 Maryse Burton PA-C [address] [place] [address] Physician Application Support Analyst Dermatology 04/14/21 Marquita Starkey MD [address] [facility] 200 [place], [place] [address] Internal Medicine 05/06/21 05/06/21 Roopa Almonte MD [address] [facility] 200 [place], [place] [address] Hospitalist Endocrinology, Diabetes, and Metabolism 05/30/21 Griffin Joshi MD [address] [facility] [address] [place], [place] [address] Cardiovascular Disease 07/25/21 Rina Magallon, RN Lead Epic Prelude Analyst 07/29/21 07/11/22 Griffin Joshi MD [address] [facility] [address] [place] [address] Assigned Heart and Vascular Provider 08/06/21 10/07/21 Roopa Almonte MD [address] [place], [place] [address] Assigned Endocrinology Provider 09/10/21 [place] [address] [facility] [place] [address] Assigned Musculoskeletal Provider 09/17/21 10/14/21 Lydia Bernstein PA-C [address] [place] [address] Assigned PCP 10/01/21 10/21/21 Kate Rosa MariaSHARDAW Community Health Worker 10/06/21 [place] [address] [place] [address] Assigned Musculoskeletal Provider 10/15/21 04/26/23 aPula Reza MD [address] [place] [address] Assigned PCP 10/22/21 12/23/21 Keerthi Miner APRN SERGING MACHINE OPERATOR [address] [place] [address] Assigned Heart and Vascular Provider 10/08/21 02/10/22 Shahida Sutton APRN SERGING MACHINE OPERATOR Assigned PCP 12/24/21 03/24/22 Porsha Michaels APRN SERGING MACHINE OPERATOR [address] [place] [address] Assigned Heart and Vascular Provider 02/11/22 05/12/22 Paula Reza MD [address] [place] [address] Assigned PCP 03/25/22 04/07/22 Shahida Sutton APRN SERGING MACHINE OPERATOR [address] [place] [address] Assigned PCP 04/08/22 06/30/22 Daylin Ludwig EP [facility] [address] [place] [address] Cardiac Rehabilitation Therapist 05/16/23 Laurel Velasquez MD [address] [place] [address] Assigned Heart and Vascular Provider 05/13/22 06/30/22 Daylin uLdwig, EP [facility] [address] [place] [address] Cardiac Rehabilitation Therapist 06/08/22 06/09/23 Paula Reza MD [address] [address] Assigned PCP 07/01/22 07/07/22 Porsha Michaels APRN SERGING MACHINE OPERATOR [address] [place] [address] Assigned Heart and Vascular Provider 07/01/22 07/07/22 Laurel Velasquez MD [address] [place] [address] Assigned Heart and Vascular Provider 07/08/22 08/04/22 Shahida Sutton APRN SERGING MACHINE OPERATOR Assigned PCP 07/08/22 09/08/22 Marilin Montaño, SERGING MACHINE OPERATOR [address] [place] [address] Assigned Heart and Vascular Provider 08/05/22 Esha Dewitt MD [address] [facility] [address] [place] [address] Gastroenterology 09/06/22 Heather Mosquera MD [address] [place] [address] Internal Medicine 09/06/22 Paula Reza MD [address] [facility] 200 [place] [address] Assigned PCP 09/09/22 01/05/23 Esha Dewitt MD [address] [address] Assigned Gastroenterology Provider 09/23/22 Valdo Escamilla PA-C [address] [facility] [address] [place] [address] Assigned Neuroscience Provider 09/30/22 Nohelia Abarca PA-C [address] [place] [address] Physician Application Support Analyst Gastroenterology 10/03/22 Heather Mosquera MD [address] [place] [address] Assigned PCP 01/06/23 Fawad York MD [address] [place], [place] [address] Assigned Musculoskeletal Provider 04/27/23 06/25/23 documented as of this encounter
--- OUTSIDE RECORDS SUMMARY | 2023-10-02 15:53 | XMS_ITS | Encounter Summary ---
Author Organization [facility] Address [address] [place] [address] Care Team Providers Care Financial Recording Clerk Name Role Phone Dixon Carson MD Primary Care Provider Mingo Aldana MD Primary Car e Provider Shahida Sutton FLIGHT INSTRUCTOR SEWAGE PLANT ATTENDANT Primary Care Provi ford Unavailable Herman, Shahida Cummings APRN SEWAGE PLANT ATTENDANT Unavailable Un available Herman, Shahida Cummings APRN SEWAGE PLANT ATTENDANT Unavailable Un available Carolynn aRmon RN Unavailable [phone] Augustine Callaway MD Unavailable Brady Lion MD Unavailable Un available Nima FranceC Unavailable [phone] Camille Chandler PA-C Unavailable [phone] Anabela Barakat APRN SEWAGE PLANT ATTENDANT Unavailable Nima FranceC Unavailable [phone] Basilio Morillo DO Unavailable [phone] Fawad York MD Unavailable [phone] Roopa Almonte MD Unavailable [phone] Augustine Callaway MD Unavailable Maryse Burton PA-C Unavailable Marquita Starkey MD Unavailable Roopa lAmonte MD Unavailable [phone] Griffin Joshi MD Unavailable Rina Magallon RN Unavailable Paula Reza MD Primary Care Provider [phone] Griffin Joshi MD Unavailable Roopa Almonte MD Unavailable [facility] hospitalBasilio win DO Unavailable Lydia Bernstein PA-C Unavailable Rosa Maria Love Unavailable [phone] Augustine Callaway MD Unavailable Paula Reza MD Unavailable Keerthi Miner APRN SEWAGE PLANT ATTENDANT Unavailable Herman, Shahida Cummings APRN SEWAGE PLANT ATTENDANT Unavailable Un available Porsha Michaels APRN SEWAGE PLANT ATTENDANT Unavailable [phone] Paula Reza MD Unavailable Herman, Shahida Cummings APRN SEWAGE PLANT ATTENDANT Unavailable Un available Daylin Ludwig Unavailable [phone] Laurel Velasquez MD Unavailable Daylin Ludwig Unavailable [phone] Paula Reza MD Unavailable Porsha Michaels APRN SEWAGE PLANT ATTENDANT Unavailable [phone] Laurel Velasquez MD Unavailable Herman, Shahida Cummings APRN SEWAGE PLANT ATTENDANT Unavailable Un available Marilin Montaño SEWAGE PLANT ATTENDANT Unavailable Esha Dewitt MD Unavailable [phone] Heather Mosquera MD Unavailable Paula Reza MD Unavailable Esha Dewitt MD Unavailable [phone] Valdo Escamilla PA-C Unavailable Nohelia AbarcaC Unavailable [phone] Heather Mosquera MD Unavailable [phone] Fawad York MD Unavailable Encounter Details Date Type Department Care Team (Late st Contact Info) Description 06/11/2007 [facility] [address] [address] Dixon Carson MD [address] [address] Social History Tobacco Use Types [...] Out COVID-19 02/15/2020 02/15/2020 02/16/2020 2: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 Rule Out COVID-19 01/05/2021 01/05/2021 01/06/2021 12:57 PM CDT ESBL 01/05/2021 01/05/2021 Rule Out COVID-19 06/30/2021 06/30/2021 07/01/2021 9:34 AM CDT Rule Out COVID-19 07/25/2021 07/25/2021 07/25/2021 8:02 PM CDT documented as of this encounter Care Teams Financial Recording Clerk Relationship Specialty Start Date End Date Dixon Carson MD PCP - General 08/10/03 07/21/09 Mingo Aldana MD PCP - General Family Practice 07/22/09 07/12/14 Shahida Sutton APRN SEWAGE PLANT ATTENDANT PCP - General Nurse Practitioner 08/17/14 08/04/21 Shahida Sutton APRN SEWAGE PLANT ATTENDANT PCP - Assigned PCP 07/12/14 05/07/18 Paula Reza MD [address] [facility] [address] [place] [address] PCP - General Internal Medicine 08/05/21 Shahida Sutton APRN SEWAGE PLANT ATTENDANT Assigned PCP 07/12/14 09/30/21 Carolynn Ramon, KASIE Personal Advocate & Liaison (PAL) 12/17/18 08/07/21 [place] [address] [place] [address] Assigned Musculoskeletal Provider 12/26/19 08/21/20 Brady Lion MD Assigned Heart and Vascular Provider 12/26/19 08/14/20 Nima France PA-C [address] [place] [address] Assigned Surgical Provider 05/19/20 08/21/20 Camille Chandler PA-C [address] [facility] [address] [place], [place] [address] Assigned Neuroscience Provider 05/19/20 09/14/20 Anabela Barakat APRN SEWAGE PLANT ATTENDANT [address] [place] [address] Assigned Heart and Vascular Provider 08/15/20 08/05/21 Nima France PA-C [address] [facility] [address] [place] [address] Assigned Musculoskeletal Provider 08/22/20 11/13/20 [place] [address] [place], [place] [address] Assigned Musculoskeletal Provider 11/14/20 12/04/20 Fawad York MD [address] [place], [place] [address] Assigned Musculoskeletal Provider 12/05/20 02/05/21 Roopa Almonte MD [address] [facility] [address] [place] [address] Endocrinology, Diabetes, and Metabolism 01/19/21 [place] [address] [address] [facility] [address] [place] [address] Assigned Musculoskeletal Provider 02/06/21 09/16/21 Maryse Burton PA-C [address] [facility] [place] [address] Physician Summons Server Dermatology 04/14/21 Marquita Starkey MD [address] [facility] [address] [place] [address] Internal Medicine 05/06/21 05/06/21 Roopa Almonte MD [address] [facility] 200 [place] [address] Hospitalist Endocrinology, Diabetes, and Metabolism 05/30/21 Griffin Joshi MD [address] [place] [address] Cardiovascular Disease 07/25/21 Rina Magallon, RN Lead Net Coordinator 07/29/21 07/11/22 Griffin Joshi MD [address] [place] [address] Assigned Heart and Vascular Provider 08/06/21 10/07/21 Roopa Almonte MD [address] [place], [place] [address] Assigned Endocrinology Provider 09/10/21 [place] [address] [facility] [place] [address] Assigned Musculoskeletal Provider 09/17/21 10/14/21 Lydia Bernstein PA-C [address] [place] [address] Assigned PCP 10/01/21 10/21/21 Rosa Maria Love CHW Community Health Worker 10/06/21 [place] [address] [place] [address] Assigned Musculoskeletal Provider 10/15/21 04/26/23 Paula Reza MD [address] [place] [address] Assigned PCP 10/22/21 12/23/21 Keerthi Miner APRN SEWAGE PLANT ATTENDANT [address] [place] [address] Assigned Heart and Vascular Provider 10/08/21 02/10/22 Shahida Sutton APRN SEWAGE PLANT ATTENDANT Assigned PCP 12/24/21 03/24/22 Porsha Michaels APRN SEWAGE PLANT ATTENDANT [address] [place] [address] Assigned Heart and Vascular Provider 02/11/22 05/12/22 Paula Reza MD [address] [place] [address] Assigned PCP 03/25/22 04/07/22 Shahida Sutton APRN SEWAGE PLANT ATTENDANT [address] [place] [address] Assigned PCP 04/08/22 06/30/22 Daylin Ludwig EP [facility] [address] [place] [address] Cardiac Rehabilitation Therapist 05/16/23 Laurel Velasquez MD [address] [place] [address] Assigned Heart and Vascular Provider 05/13/22 06/30/22 Daylin Ludwig EP [facility] [address] [place] [address] Cardiac Rehabilitation Therapist 06/08/22 06/09/23 Paula Reza MD [address] [facility] [address] [place], [place] [address] Assigned PCP 07/01/22 07/07/22 Porsha Michaels APRN SEWAGE PLANT ATTENDANT [address] [place] [address] Assigned Heart and Vascular Provider 07/01/22 07/07/22 Laurel Velasquez MD [address] [place] [address] Assigned Heart and Vascular Provider 07/08/22 08/04/22 Shahida Sutton, FLIGHT INSTRUCTOR SEWAGE PLANT ATTENDANT Assigned PCP 07/08/22 09/08/22 Marilin Montaño, SEWAGE PLANT ATTENDANT [address] [place] [address] Assigned Heart and Vascular Provider 08/05/22 Esha Dewitt MD [address] [place] [address] [address] [place], [place] [address] Gastroenterology 09/06/22 Heather Mosquera MD [address] [place] [address] Internal Medicine 09/06/22 Paula Reza MD [address] [place] [address] Assigned PCP 09/09/22 01/05/23 Esha Dewitt MD [address] [facility] [address] [place], [place] [address] Assigned Gastroenterology Provider 09/23/22 Valdo Escamilla PA-C [address] [facility] [address] [place] [address] Assigned Neuroscience Provider 09/30/22 Nohelia Abarca PA-C [address] [place], [place] [address] Physician Summons Server Gastroenterology 10/03/22 Heather Mosquera MD [address] [place] [address] Assigned PCP 01/06/23 Fawad York MD [address] [place], [place] [address] Assigned Musculoskeletal Provider 04/27/23 06/25/23 documented as of this encounter
--- OUTSIDE RECORDS SUMMARY | 2023-10-02 15:53 | XMS_ITS | Encounter Summary ---
Author Organization [place] Address [address] [place] [address] Care Team Providers Care Bulk Plant Agent Name Role Phone Dixon Carson MD Primary Care Provider Mingo Aldana MD Primary Car e Provider Shahida Sutton MOLDING CUTTER SURGERY SPECIALIST Primary Care Provi ford Unavailable Herman, Shahida Cummings APRN SURGERY SPECIALIST Unavailable Un available Herman, Shahida Cummings APRN SURGERY SPECIALIST Unavailable Un available Carolynn Ramon RN Unavailable [phone] Augustine Callaway MD Unavailable Brady Lion MD Unavailable Un available Nima FranceC Unavailable [phone] Camille Chandler PA-C Unavailable [phone] Anabela Barakat APRN SURGERY SPECIALIST Unavailable Nima FranceC Unavailable [phone] Basilio Morillo DO Unavailable [phone] Fawad York MD Unavailable [phone] Roopa Almonte MD Unavailable [phone] Augustine Callaway MD Unavailable Maryse Burton [...] Paula Reza MD Unavailable Keerthi Miner APRN SURGERY SPECIALIST Unavailable Herman, Shahida Cummings APRN SURGERY SPECIALIST Unavailable Un available Porsha Michaels APRN SURGERY SPECIALIST Unavailable [phone] Paula Reza MD Unavailable Herman, Shahida Cummings APRN SURGERY SPECIALIST Unavailable Un available Daylin Ludwig Unavailable [phone] Laurel Velasquez MD Unavailable Daylin Ludwig Unavailable [phone] Paula Reza MD Unavailable Porsha Michaels APRN SURGERY SPECIALIST Unavailable [phone] Laurel Velasquez MD Unavailable Herman, Shahida Cummings APRN SURGERY SPECIALIST Unavailable Un available Marilin Montaño SURGERY SPECIALIST Unavailable Esha Dewitt MD Unavailable [phone] Heather Mosquera MD Unavailable Paula Reza MD Unavailable Esha Dewitt MD Unavailable [phone] Ayserick Valdo Desouza PA-C Unavailable [phone] Nohelia bAarca PA-C Unavailable [phone] Heather Mosquera MD Unavailable [phone] Fawad York MD Unavailable [phone] Reason for Visit * Reason Onset Date Comments MyChart Communication 08/22/2006 nexium Encounter Details Date Type Department Care Team (Late st Contact Info) Description 08/22/2006 [facility] [address] [address] Dixon Carson MD [address] [address] MyChart Communication (nexium) Social History Tobacco Use [...] Cordero - 08/22/2006 1:12 PM CDTMessage from [id number]: Original authorizing provider: Olivier Terrell would like a refill of the following medications: NEXIUM 40 MG OR CPDR [Olivier Frances MD] Preferred pharmacy: [facility] Comment: Thank you for your efforts on [...] Out COVID-19 02/15/2020 02/15/2020 02/16/2020 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 Rule Out COVID-19 01/05/2021 01/05/2021 01/06/2021 12:57 PM CDT ESBL 01/05/2021 01/05/2021 Rule Out COVID-19 06/30/2021 06/30/2021 07/01/2021 9:34 AM CDT Rule Out COVID-19 07/25/2021 07/25/2021 07/25/2021 8:02 PM CDT documented as of this encounter Care Teams Bulk Plant Agent Relationship Specialty Start Date End Date Dixon Carson MD PCP - General 08/10/03 07/21/09 Mingo Aldana MD PCP - General Family Practice 07/22/09 07/12/14 Shahida Sutton APRN SURGERY SPECIALIST PCP - General Nurse Practitioner 08/17/14 08/04/21 Shahida Sutton APRN SURGERY SPECIALIST PCP - Assigned PCP 07/12/14 05/07/18 Paula Reza MD [address] [address] PCP - General Internal Medicine 08/05/21 Shahida Sutton APRN SURGERY SPECIALIST Assigned PCP 07/12/14 09/30/21 Carolynn Ramon RN Personal Advocate & Liaison (PAL) 12/17/18 08/07/21 [place] [address] [place] [address] Assigned Musculoskeletal Provider 12/26/19 08/21/20 Brady Lion MD Assigned Heart and Vascular Provider 12/26/19 08/14/20 Nima France PA-C [address] [facility] [place] [place] [address] [place] [address] Assigned Surgical Provider 05/19/20 08/21/20 Camille Chandler PA-C [address] [facility] [place] [address] [place] [address] Assigned Neuroscience Provider 05/19/20 09/14/20 Anabela Barakat APRN SURGERY SPECIALIST [address]00 [place] [address] Assigned Heart and Vascular Provider 08/15/20 08/05/21 Nima France PA-C [address] [place] [address] [place] [address] Assigned Musculoskeletal Provider 08/22/20 11/13/20 [place] [address] [facility] [place] [address] Assigned Musculoskeletal Provider 11/14/20 12/04/20 Fawad York MD [address] [place] [address] Assigned Musculoskeletal Provider 12/05/20 02/05/21 Roopa Almonte MD [address] [facility] 200 [place] [address] Endocrinology, Diabetes, and Metabolism 01/19/21 [place] [address] [facility] 300 [place] [address] Assigned Musculoskeletal Provider 02/06/21 09/16/21 Maryse Burton PA-C [address] [place] [address] Physician Head Control Clerk Dermatology 04/14/21 Marquita Starkey MD [address] [facility] 200 [place] [address] Internal Medicine 05/06/21 05/06/21 Roopa Almonte MD [address] [facility] [address] [place] [address] Hospitalist Endocrinology, Diabetes, and Metabolism 05/30/21 Griffin Joshi MD [address] [facility] [address] [place] [address] Cardiovascular Disease 07/25/21 Rina Magallon, RN Lead Cryptologic Supervisor 07/29/21 07/11/22 Griffin Joshi MD [address] [facility] [address] [place] [address] Assigned Heart and Vascular Provider 08/06/21 10/07/21 Roopa Almonte MD [address] [place] [address] 200 [place] [address] Assigned Endocrinology Provider 09/10/21 [place] [address] [facility] [place] [address] Assigned Musculoskeletal Provider 09/17/21 10/14/21 Lydia Bernstein, HUYC [address] [place] [address] Assigned PCP 10/01/21 10/21/21 Rosa Maria Love CHW Community Health Worker 10/06/21 [place] [address] [facility] [address] [place] [address] Assigned Musculoskeletal Provider 10/15/21 04/26/23 Paula Reza MD [address] [facility] 200 [place] [address] Assigned PCP 10/22/21 12/23/21 Keerthi Miner APRN SURGERY SPECIALIST [address] [place] [address] Assigned Heart and Vascular Provider 10/08/21 02/10/22 Shahida Sutton APRN SURGERY SPECIALIST Assigned PCP 12/24/21 03/24/22 Porsha Michaels APRN SURGERY SPECIALIST [address] [place] [address] Assigned Heart and Vascular Provider 02/11/22 05/12/22 Paula Reza MD [address] [place] [address] Assigned PCP 03/25/22 04/07/22 Shahida Sutton APRN SURGERY SPECIALIST [address] [place] [address] Assigned PCP 04/08/22 06/30/22 Daylin Ludwig, EP [facility] [address] [place] [address] Cardiac Rehabilitation Therapist 05/16/23 Laurel Velasquez MD [address] [place] [address] Assigned Heart and Vascular Provider 05/13/22 06/30/22 Daylin Ludwig, MIKI [facility] [address] [place] [address] Cardiac Rehabilitation Therapist 06/08/22 06/09/23 Paula Reza MD [address] [place] [address] Assigned PCP 07/01/22 07/07/22 Porsha Michaels APRN SURGERY SPECIALIST [address] [place] [address] Assigned Heart and Vascular Provider 07/01/22 07/07/22 Laurel Velasquez MD [address] [place] [address] Assigned Heart and Vascular Provider 07/08/22 08/04/22 Shahida Sutton APRN SURGERY SPECIALIST Assigned PCP 07/08/22 09/08/22 Marilin Montaño, SURGERY SPECIALIST [address] [place] [address] Assigned Heart and Vascular Provider 08/05/22 Esha Dewitt MD [address] [facility] 36 [place] [address] MD Gastroenterology 09/06/22 Heather Mosquera MD [address] [place] [address] Internal Medicine 09/06/22 Paula Reza MD [address] [facility] [address] [place], [place] [address] Assigned PCP 09/09/22 01/05/23 Esha Dewitt MD [address] [facility] 36 [place] [address] Assigned Gastroenterology Provider 09/23/22 Valdo Escamilla PA-C [address] [place] [address] Assigned Neuroscience Provider 09/30/22 Nohelia Abarca PA-C [address] [place] [address] Physician Head Control Clerk Gastroenterology 10/03/22 Heather Mosquera MD [address] [place] [address] Assigned PCP 01/06/23 Fawad York MD 909 [place] [address] Assigned Musculoskeletal Provider 04/27/23 06/25/23 documented as of this encounter
--- OUTSIDE RECORDS SUMMARY | 2023-10-02 15:53 | XMS_ITS | Encounter Summary ---
Author Organization [facility] Address [address] [place] [address] Care Team Providers Care Wash Oil Cooler Operator Name Role Phone Dixon Carson MD Primary Care Provider Mingo Aldana MD Primary Car e Provider Shahida Sutton MOPHEAD SEWER LEARNING SOLUTIONS SPECIALIST Primary Care Provi ford Unavailable Herman, Shahida Cummings APRN LEARNING SOLUTIONS SPECIALIST Unavailable Un available Herman, Shahida Cummings APRN LEARNING SOLUTIONS SPECIALIST Unavailable Un available Carolynn Ramon RN Unavailable [phone] Augustine Callaway MD Unavailable Brady Lion MD Unavailable Un available Nima FranceC Unavailable [phone] Camille Chandler PA-C Unavailable [phone] Anabela Barakat APRN LEARNING SOLUTIONS SPECIALIST Unavailable Nima FranceC Unavailable [phone] Basilio Morillo DO Unavailable [phone] Fawad York MD Unavailable [phone] Roopa Almonte MD Unavailable [phone] Augustine Callaway MD Unavailable Maryse Burton [...] Reza MD Unavailable Keerthi Miner APRN LEARNING SOLUTIONS SPECIALIST Unavailable Herman, Shahida Cummings APRN LEARNING SOLUTIONS SPECIALIST Unavailable Un available Porsha Michaels APRN LEARNING SOLUTIONS SPECIALIST Unavailable [phone] Paula Reza MD Unavailable Herman, Shahida Cummings APRN LEARNING SOLUTIONS SPECIALIST Unavailable Un available Daylin Ludwig Unavailable [phone] Laurel Velasquez MD Unavailable Daylin Ludwig Unavailable [phone] Paula Reza MD Unavailable Porsha Michaels APRN LEARNING SOLUTIONS SPECIALIST Unavailable [phone] Laurel Velasquez MD Unavailable Herman, Shahida Cummings APRN LEARNING SOLUTIONS SPECIALIST Unavailable Un available Marilin Montaño LEARNING SOLUTIONS SPECIALIST Unavailable [phone] Esha Dewitt MD Unavailable [phone] Heather Mosquera MD Unavailable Paula Reza MD Unavailable Esha Dewitt MD Unavailable [phone] Valdo Escamilla PA-C Unavailable [phone] Nohelia Abarca PA-C Unavailable [phone] Heather Mosquera MD Unavailable Fawad York MD Unavailable [phone] Encounter Details Date Type Department Care Team (Late st Contact Info) Description 01/09/2007 MyC Medical Advice [address] [address] Mingo Aldana MD [facility] [address] [place] [address] OTHER MALAISE AND FATIGUE (Primary [...] insurance company for increased quantity. Porsha Marley MANAGER HOTEL RAL LEDGER ACCOUNTANT documented in this encounter Plan of Treatment Not on file documented as of this encounter Visit Diagnoses Diagnosis Other malaise and fatigue- Primary documented in this encounter Additional Health Concerns Infection Onset Date Last Indicated Resolved Time Rule Out COVID-19 02/15/2020 02/15/2020 02/16/2020 2:32 PM GENERAL LEDGER ACCOUNTANT Rule Out COVID-19 01/05/2021 01/05/2021 01/06/2021 12:57 PM CDT ESBL 01/05/2021 01/05/2021 Rule Out COVID-19 06/30/2021 06/30/2021 07/01/2021 9:34 AM CDT Rule Out COVID-19 07/25/2021 07/25/2021 07/25/2021 8:02 PM CDT documented as of this encounter Care Teams Wash Oil Cooler Operator Relationship Specialty Start Date End Date Dixon Carson MD PCP - General 08/10/03 07/21/09 Mingo Aldana MD PCP - General Family Practice 07/22/09 07/12/14 Shahida Sutton APRN LEARNING SOLUTIONS SPECIALIST PCP - General Nurse Practitioner 08/17/14 08/04/21 Shahida Sutton APRN LEARNING SOLUTIONS SPECIALIST PCP - Assigned PCP 07/12/14 05/07/18 Paula Reza MD [address] [facility] [address] [place] [address] PCP - General Internal Medicine 08/05/21 Shahida Sutton APRN LEARNING SOLUTIONS SPECIALIST Assigned PCP 07/12/14 09/30/21 Carolynn Ramon, KASIE Personal Advocate & Liaison (PAL) 12/17/18 08/07/21 [place] [address] [place] [address] Assigned Musculoskeletal Provider 12/26/19 08/21/20 Brady Lion MD Assigned Heart and Vascular Provider 12/26/19 08/14/20 Nima France PA-C [address] [place] [address] Assigned Surgical Provider 05/19/20 08/21/20 Camille Chandler PA-C [address] [facility] [address] [place], [place] [address] Assigned Neuroscience Provider 05/19/20 09/14/20 Anabela Barakat APRN LEARNING SOLUTIONS SPECIALIST [address] [place] [address] Assigned Heart and Vascular Provider 08/15/20 08/05/21 Nima France PA-C [address] [facility] [address] [place] [address] Assigned Musculoskeletal Provider 08/22/20 11/13/20 [place] [address] [facility] [place] [address] Assigned Musculoskeletal Provider 11/14/20 12/04/20 Fawad York MD [address] [place], [place] [address] Assigned Musculoskeletal Provider 12/05/20 02/05/21 Roopa Almonte MD [address] [facility] [address] [place], [place] [address] Endocrinology, Diabetes, and Metabolism 01/19/21 [place] [address] [facility] [address] [place] [address] Assigned Musculoskeletal Provider 02/06/21 09/16/21 Maryse Burton PA-C [address] [place] [address] Physician Work And Family Life Consultant Dermatology 04/14/21 Marquita Starkey MD [address] [facility] [address] [place], [place] [address] Internal Medicine 05/06/21 05/06/21 Roopa Almonte MD [address] [address] Hospitalist Endocrinology, Diabetes, and Metabolism 05/30/21 Griffin Joshi MD [address] [place] [address] [place] [address] Cardiovascular Disease 07/25/21 Rina Magallon, RN Lead Legal Financial Specialist 07/29/21 07/11/22 Griffin Joshi MD [address] [place] [address]76[address] [place] [address] Assigned Heart and Vascular Provider 08/06/21 10/07/21 Roopa Almonte MD [address] [address] [place], [place] [address] Assigned Endocrinology Provider 09/10/21 [place] [address] [facility] [address] [place] [address] Assigned Musculoskeletal Provider 09/17/21 10/14/21 Lydia Bernstein PA-C [address] [place] [address] Assigned PCP 10/01/21 10/21/21 Rosa Maria Love Cristina Community Health Worker 10/06/21 [place] [address] [address] [place] [address] Assigned Musculoskeletal Provider 10/15/21 04/26/23 Paula Reza MD [address] [place] [address] Assigned PCP 10/22/21 12/23/21 Keerthi Miner APRN LEARNING SOLUTIONS SPECIALIST [address] [place] [address] Assigned Heart and Vascular Provider 10/08/21 02/10/22 Shahida Sutton APRN LEARNING SOLUTIONS SPECIALIST Assigned PCP 12/24/21 03/24/22 Porsha Michaels APRN LEARNING SOLUTIONS SPECIALIST [address] [place] [address] Assigned Heart and Vascular Provider 02/11/22 05/12/22 Paula Reza MD [address] [place] [address] Assigned PCP 1/21/23 2/3/23 Shahida Sutton APRN LEARNING SOLUTIONS SPECIALIST [address] [place] [address] Assigned PCP 04/08/22 06/30/22 Daylin Ludwig, [facility] [address] [place] [address] Cardiac Rehabilitation Therapist 05/16/23 Laurel Velasquez MD [address] [place] [address] Assigned Heart and Vascular Provider 05/13/22 06/30/22 Daylin Ludwig, MIKI [facility] [address] [place] [address] Cardiac Rehabilitation Therapist 06/08/22 06/09/23 Paula Reza MD [address] [address] Assigned PCP 07/01/22 07/07/22 Porsha Michaels APRN LEARNING SOLUTIONS SPECIALIST [address] [place] [address] Assigned Heart and Vascular Provider 07/01/22 07/07/22 Laurel Velasquez MD [address] [place] [address] Assigned Heart and Vascular Provider 07/08/22 08/04/22 Shahida Sutton APRN LEARNING SOLUTIONS SPECIALIST Assigned PCP 07/08/22 09/08/22 Marilin Montaño, LEARNING SOLUTIONS SPECIALIST [address] [place] [address] Assigned Heart and Vascular Provider 08/05/22 Esha Dewitt MD [address] [facility] 36 [place] [address] Gastroenterology 09/06/22 Heather Mosquera MD [address] [place], [place] [address] Internal Medicine 09/06/22 Paula Reza MD [address] [facility] [address] [place], [place] [address] Assigned PCP 09/09/22 01/05/23 Esha Dewitt MD [address] [facility] 36 [place], [place] [address] Assigned Gastroenterology Provider 09/23/22 Valdo Escamilla PA-C [address] [facility] [address] [place] [address] Assigned Neuroscience Provider 09/30/22 Nohelia Abarca PA-C [address] [place] [address] Physician Work And Family Life Consultant Gastroenterology 10/03/22 Heather Mosquera MD [address] [place] [address] Assigned PCP 01/06/23 Fawad York MD [address] [place] [address] Assigned Musculoskeletal Provider 04/27/23 06/25/23 documented as of this encounter
--- OUTSIDE RECORDS SUMMARY | 2023-10-02 15:53 | XMS_ITS | Encounter Summary ---
Author Organization [place] Address [address] [place] [address] Care Team Providers Care Rubber Block Layer Name Role Phone Dixon Carson MD Primary Care Provider Mingo Aldana MD Primary Car e Provider Shahida Sutton COMPACTOR DRIVER BIG MACHINE CONSULTANT Primary Care Provi ford Unavailable Herman, Shahida Cummings APRN BIG MACHINE CONSULTANT Unavailable Un available Herman, Shahida Cummings APRN BIG MACHINE CONSULTANT Unavailable Un available Carolynn Ramon RN Unavailable [phone] Augustine Callaway MD Unavailable Brady Lion MD Unavailable Un available Nima FranceC Unavailable [phone] Camille Chandler PA-C Unavailable [phone] Anabela Barakat APRN BIG MACHINE CONSULTANT Unavailable Nima FranceC Unavailable [phone] Basilio Morillo DO Unavailable [phone] Fawad York MD Unavailable [phone] Roopa Almonte MD Unavailable [phone] Augustine Callaway MD Unavailable Maryse Burton [...] Paula Reza MD Unavailable Keerthi Miner APRN BIG MACHINE CONSULTANT Unavailable Herman, Shahida Cummings APRN BIG MACHINE CONSULTANT Unavailable Un available Porsha Michaels APRN BIG MACHINE CONSULTANT Unavailable [phone] Paula Reza MD Unavailable Herman, Shahida Cummings APRN BIG MACHINE CONSULTANT Unavailable Un available Daylin Ludwig Unavailable [phone] Laurel Velasquez MD Unavailable Daylin Ludwig Unavailable [phone] Paula Reza MD Unavailable Porsha Michaels APRN BIG MACHINE CONSULTANT Unavailable [phone] Laurel Velasquez MD Unavailable Herman, Shahida Cummings APRN BIG MACHINE CONSULTANT Unavailable Un available Marilin Montaño BIG MACHINE CONSULTANT Unavailable [phone] Esha Dewitt MD Unavailable [phone] Heather Mosquera MD Unavailable Paula Reza MD Unavailable Esha Dewitt MD Unavailable [phone] Valdo Escamilla PA-C Unavailable Nohelia AbarcaC Unavailable [phone] Heather Mosquera MD Unavailable Fawad York MD Unavailable Encounter Details Date Type Department Care Team (Late st Contact Info) Description 08/20/2006 Jake Lancasterporfirio [address] [address] Dixon Carson MD [address] [address] Social History Tobacco Use Types [...] Out COVID-19 02/15/2020 02/15/2020 02/16/2020 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 Rule Out COVID-19 01/05/2021 01/05/2021 01/06/2021 12:57 PM CDT ESBL 01/05/2021 01/05/2021 Rule Out COVID-19 06/30/2021 06/30/2021 07/01/2021 9:34 AM CDT Rule Out COVID-19 07/25/2021 07/25/2021 07/25/2021 8:02 PM CDT documented as of this encounter Care Teams Rubber Block Layer Relationship Specialty Start Date End Date Dixon Carson MD PCP - General 08/10/03 07/21/09 Mingo Aldana MD PCP - General Family Practice 07/22/09 07/12/14 Shahida Sutton APRN BIG MACHINE CONSULTANT PCP - General Nurse Practitioner 08/17/14 08/04/21 Shahida Sutton APRN BIG MACHINE CONSULTANT PCP - Assigned PCP 07/12/14 05/07/18 Paula Reza MD [address] [facility] [address] [place] [address] PCP - General Internal Medicine 08/05/21 Shahida Sutton APRN BIG MACHINE CONSULTANT Assigned PCP 07/12/14 09/30/21 Carolynn Ramon, KASIE Personal Advocate & Liaison (PAL) 12/17/18 08/07/21 [place] [address] [place] [address] Assigned Musculoskeletal Provider 12/26/19 08/21/20 Brady Lion MD Assigned Heart and Vascular Provider 12/26/19 08/14/20 Nima France PA-C [address] [place] [address] Assigned Surgical Provider 05/19/20 08/21/20 Camille Chandler PA-C [address] [facility] [address] [place] [address] Assigned Neuroscience Provider 05/19/20 09/14/20 Anabela Barakat APRN BIG MACHINE CONSULTANT [address] [place] [address] Assigned Heart and Vascular Provider 08/15/20 08/05/21 Nima France PA-C 6545 [facility] 450 [place] [address] Assigned Musculoskeletal Provider 08/22/20 11/13/20 [place] [address] [place] [address] Assigned Musculoskeletal Provider 11/14/20 12/04/20 Fawad York MD [address] [place], [place] [address] Assigned Musculoskeletal Provider 12/05/20 02/05/21 Roopa Almonte MD [address] [facility] 200 [place] [address] Endocrinology, Diabetes, and Metabolism 01/19/21 [place] [address] [address] [facility] [address] [place] [address] Assigned Musculoskeletal Provider 02/06/21 09/16/21 Maryse Burton PA-C [address] [facility] [address] Physician Mechanical Laboratory Technician Dermatology 04/14/21 Marquita Starkey MD [address] [facility] 200 [place] [address] Internal Medicine 05/06/21 05/06/21 Roopa Almonte MD [address] [facility] [address] [place] [address] Hospitalist Endocrinology, Diabetes, and Metabolism 05/30/21 Griffin Joshi MD [address] [place] [address] Cardiovascular Disease 07/25/21 Rina Magallon RN Lead Net Ui Developer 07/29/21 07/11/22 Griffin Joshi MD [address] [place] [address] Assigned Heart and Vascular Provider 08/06/21 10/07/21 Roopa Almonte MD [address] [place], [place] [address] Assigned Endocrinology Provider 09/10/21 [place] [address] [facility] [place] [address] Assigned Musculoskeletal Provider 09/17/21 10/14/21 Lydia Bernstein PA-C [address] [place] [address] Assigned PCP 10/01/21 10/21/21 Rosa Maria Love CHW Community Health Worker 10/06/21 [place] [address] [place] [address] Assigned Musculoskeletal Provider 10/15/21 04/26/23 Paula Reza MD [address] [place] [address] Assigned PCP 10/22/21 12/23/21 Keerthi Miner APRN BIG MACHINE CONSULTANT [address] [place] [address] Assigned Heart and Vascular Provider 10/08/21 02/10/22 Shahida Sutton APRN BIG MACHINE CONSULTANT Assigned PCP 12/24/21 03/24/22 Porsha Michaels APRN BIG MACHINE CONSULTANT [address] [place] [address] Assigned Heart and Vascular Provider 02/11/22 05/12/22 Paula Reza MD [address] [place] [address] Assigned PCP 03/25/22 04/07/22 Shahida Sutton APRN BIG MACHINE CONSULTANT [address] [place] [address] Assigned PCP 04/08/22 06/30/22 Daylin Ludwig EP [facility] [address] [place] [address] Cardiac Rehabilitation Therapist 05/16/23 Laurel Velasquez MD [address] [place] [address] Assigned Heart and Vascular Provider 05/13/22 06/30/22 Daylin Ludwig EP [facility] [address] [place] [address] Cardiac Rehabilitation Therapist 06/08/22 06/09/23 Paula Reza MD [address] [facility] [address] [place], [place] [address] Assigned PCP 07/01/22 07/07/22 Porsha Michaels APRN BIG MACHINE CONSULTANT [address] [place] [address] Assigned Heart and Vascular Provider 07/01/22 07/07/22 Laurel Velasquez MD [address] [place] [id number] Assigned Heart and Vascular Provider 07/08/22 08/04/22 Shahida Sutton APRN BIG MACHINE CONSULTANT Assigned PCP 07/08/22 09/08/22 Marilin Montaño, BIG MACHINE CONSULTANT [address] [id number] Assigned Heart and Vascular Provider 08/05/22 Esha Dewitt MD 420 [facility] 36 [place], [place] [address] Gastroenterology 09/06/22 Heather Mosquera MD [address] [place], [place] [address] Internal Medicine 09/06/22 Paula Reza MD [address] [facility] [address] [place], [place] [address] Assigned PCP 09/09/22 01/05/23 Esha Dewitt MD 420 [facility] 36 [place], [place] [address] Assigned Gastroenterology Provider 09/23/22 Valdo Escamilla PA-C [address] [facility] [address] [place], [place] [address] Assigned Neuroscience Provider 09/30/22 Nohelia Abarca PA-C [address] [place], [place] [address] Physician Mechanical Laboratory Technician Gastroenterology 10/03/22 Heather Mosquera MD [address] [facility] [address] [place], [place] [address] Assigned PCP 01/06/23 Fawad York MD [address] [place], [place] [address] Assigned Musculoskeletal Provider 04/27/23 06/25/23 documented as of this encounter
--- OUTSIDE RECORDS SUMMARY | 2023-10-02 15:53 | XMS_ITS | Encounter Summary ---
Author Organization [facility] Address [address] [place] [address] Care Team Providers Care Information Assurance Manager Name Role Phone Dixon Carson MD Primary Care Provider Mingo Aldana MD Primary Car e Provider Shahida Sutton GUARD CHIEF NEUROLOGY SPECIALIST Primary Care Provi ford Unavailable Herman, Shahida Cummings APRN NEUROLOGY SPECIALIST Unavailable Un available Herman, Shahida Cummings APRN NEUROLOGY SPECIALIST Unavailable Un available Carolynn Ramon RN Unavailable [phone] Augustine Callaway MD Unavailable Brady Lion MD Unavailable Un available Nima FranceC Unavailable [phone] Camille Chandler PA-C Unavailable [phone] Anabela Barakat APRN NEUROLOGY SPECIALIST Unavailable Nima FranceC Unavailable [phone] Basilio Morillo DO Unavailable [phone] Fawad York MD Unavailable [phone] Roopa Almonte MD Unavailable [phone] Augustine Callaway MD Unavailable Maryse Burton [...] Paula Reza MD Unavailable Keerthi Miner APRN NEUROLOGY SPECIALIST Unavailable Herman, Shahida Cummings APRN NEUROLOGY SPECIALIST Unavailable Un available Porsha Michaels APRN NEUROLOGY SPECIALIST Unavailable [phone] Paula Reza MD Unavailable Herman, Shahida Cummings APRN NEUROLOGY SPECIALIST Unavailable Un available Daylin Ludwig Unavailable [phone] Laurel Velasquez MD Unavailable Daylin Ludwig Unavailable [phone] Paula Reza MD Unavailable Porsha Michaels APRN NEUROLOGY SPECIALIST Unavailable [phone] Laurel Velasquez MD Unavailable Herman, Shahida Cummings APRN NEUROLOGY SPECIALIST Unavailable Un available Marilin Montaño NEUROLOGY SPECIALIST Unavailable Esha Dewitt MD Unavailable [phone] Heather Mosquera MD Unavailable Paula Reza MD Unavailable Esha Dewitt MD Unavailable [phone] Ayserick Lyle Deo WEBB Unavailable [phone] Nohelia AbarcaC Unavailable [phone] Heather Mosquera MD Unavailable Fawad York MD Unavailable [phone] Reason for Visit * Reason Onset Date Comments MyChart Communication 06/12/2006 Encounter Details Date Type Department Care Team (Latest Contact Info) Description 06/12/2006 [facility] [address] [id number] Dixon Carson MD [address] [address] MyChart Communication Social History Tobacco Use Types [...] COVID-19 02/15/2020 02/15/2020 02/16/2020 2:32 PM LEAD FABRICATOR Rule Out COVID-19 01/05/2021 01/05/2021 01/06/2021 12:57 PM CDT ESBL 01/05/2021 01/05/2021 Rule Out COVID-19 06/30/2021 06/30/2021 07/01/2021 9:34 AM CDT Rule Out COVID-19 07/25/2021 07/25/2021 07/25/2021 8:02 PM CDT documented as of this encounter Care Teams Information Assurance Manager Relationship Specialty Start Date End Date Dixon Carson MD PCP - General 08/10/03 07/21/09 Mingo Aldana MD PCP - General Family Practice 07/22/09 07/12/14 Shahida Sutton APRN NEUROLOGY SPECIALIST PCP - General Nurse Practitioner 08/17/14 08/04/21 Sahhida Sutton APRN NEUROLOGY SPECIALIST PCP - Assigned PCP 07/12/14 05/07/18 Paula Reza MD [address] [address] PCP - General Internal Medicine 08/05/21 Shahida Sutton APRN NEUROLOGY SPECIALIST Assigned PCP 07/12/14 09/30/21 Carolynn Ramon RN Personal Advocate & Liaison (PAL) 12/17/18 08/07/21 [place] [address] [place] [address] Assigned Musculoskeletal Provider 12/26/19 08/21/20 Brady Lion MD Assigned Heart and Vascular Provider 12/26/19 08/14/20 Nima France PA-C [address] [address] [place], [place] [address] Assigned Surgical Provider 05/19/20 08/21/20 Camille Chandler PA-C [address] [address] [place] [address] Assigned Neuroscience Provider 05/19/20 09/14/20 Anabela Barakat APRN NEUROLOGY SPECIALIST [address] [place] [address] Assigned Heart and Vascular Provider 08/15/20 08/05/21 Nima France PA-C [address] [address] Assigned Musculoskeletal Provider 08/22/20 11/13/20 [place] [address] [facility] [place] [address] Assigned Musculoskeletal Provider 11/14/20 12/04/20 Fawad York MD [address] [place] [address] Assigned Musculoskeletal Provider 12/05/20 02/05/21 Roopa Almonte MD [address] [facility] [address] [place] [address] Endocrinology, Diabetes, and Metabolism 01/19/21 [place] [address] [facility] [address] [place] [address] Assigned Musculoskeletal Provider 02/06/21 09/16/21 Maryse Burton PA-C [address] [place] [address] Physician Industrial Plant Custodian Dermatology 04/14/21 Marquita Starkey MD [address] [facility] [address] [place] [address] Internal Medicine 05/06/21 05/06/21 Roopa Almonte MD [address] [facility] [address] [place] [address] Hospitalist Endocrinology, Diabetes, and Metabolism 05/30/21 Griffin Joshi MD [address] [facility] [address] [place] [address] Cardiovascular Disease 07/25/21 Rina Magallon, RN Lead Microwave Remote Sensing Scientist 07/29/21 07/11/22 Griffin Joshi MD [address] [facility] [address] [place] [address] Assigned Heart and Vascular Provider 08/06/21 10/07/21 Roopa Almonte MD [address] [facility] 200 [place] [address] Assigned Endocrinology Provider 09/10/21 [place] [address] [facility] [place] [address] Assigned Musculoskeletal Provider 09/17/21 10/14/21 Lydia Bernstein PA-C [address] [place] [address] Assigned PCP 10/01/21 10/21/21 Rosa Maria Love [facility] Community Health Worker 10/06/21 [place] [address] [facility] [address] [place] [address] Assigned Musculoskeletal Provider 10/15/21 04/26/23 Paula Reza MD [address] [facility] [address] [place] [address] Assigned PCP 10/22/21 12/23/21 Keerthi Miner APRN NEUROLOGY SPECIALIST [address] [place] [address] Assigned Heart and Vascular Provider 10/08/21 02/10/22 Shahida Sutton APRN NEUROLOGY SPECIALIST Assigned PCP 12/24/21 03/24/22 Porsha Michaels APRN NEUROLOGY SPECIALIST [address] [place] [address] Assigned Heart and Vascular Provider 02/11/22 05/12/22 Paula Reza MD [address] [place] [address] Assigned PCP 03/25/22 04/07/22 Shahida Sutton APRN NEUROLOGY SPECIALIST [address] [place] [address] Assigned PCP 04/08/22 06/30/22 Daylin Ludwig, [facility] [address] [place] [address] Cardiac Rehabilitation Therapist 05/16/23 Laurel Velasquez MD [address] [place] [address] Assigned Heart and Vascular Provider 05/13/22 06/30/22 Daylin Ludwig, [facility] [address] [place] [address] Cardiac Rehabilitation Therapist 06/08/22 06/09/23 Paula Reza MD [address] [place] [address] Assigned PCP 07/01/22 07/07/22 Porsha Michaels APRN NEUROLOGY SPECIALIST [address] [place] [address] Assigned Heart and Vascular Provider 07/01/22 07/07/22 Laurel Velasquez MD [address] [place] [address] Assigned Heart and Vascular Provider 07/08/22 08/04/22 Shahida Sutton APRN NEUROLOGY SPECIALIST Assigned PCP 07/08/22 09/08/22 Marilin Montaño CNP [address] [facility] [place] [address] Assigned Heart and Vascular Provider 08/05/22 Esha Dewitt MD [address] [facility] 36 [place], [place] [address] MD Gastroenterology 09/06/22 Heather Mosquera MD [address] [facility] [address] [place], [place] [address] Internal Medicine 09/06/22 Paula eRza MD [address] [facility] [address] [place], [place] [address] Assigned PCP 09/09/22 01/05/23 Esha Dewitt MD [address] [facility] 36 [place], [place] [address] Assigned Gastroenterology Provider 09/23/22 Valdo Escamilla PA-C [address] [facility] [address] [place] [address] Assigned Neuroscience Provider 09/30/22 Nohelia Abarca PA-C [address] [place] [address] Physician Industrial Plant Custodian Gastroenterology 10/03/22 Heather Mosquera MD [address] [facility] 150 [place] [address] Assigned PCP 01/06/23 Fawad York MD [address] [place] [address] Assigned Musculoskeletal Provider 04/27/23 06/25/23 documented as of this encounter
--- OUTSIDE RECORDS SUMMARY | 2023-10-02 15:53 | XMS_ITS | Encounter Summary ---
Author Organization [facility] Address [address] [place] [address] Care Team Providers Care Electric Meter Repairer Apprentice Name Role Phone Dixon Carson MD Primary Care Provider Mingo Aldana MD Primary Car e Provider Shahida Sutton LOG YARD DERRICK OPERATOR LOAD HAUL DUMP OPERATOR Primary Care Provi ford Unavailable Herman, Shahida Cummings APRN LOAD HAUL DUMP OPERATOR Unavailable Un available Herman, Shahida Cummings APRN LOAD HAUL DUMP OPERATOR Unavailable Un available Carolynn Ramon RN Unavailable [phone] Augustine Callaway MD Unavailable Brady Lion MD Unavailable Un available Nima FranceC Unavailable [phone] Camille Chandler PA-C Unavailable [phone] Anabela Barakat APRN LOAD HAUL DUMP OPERATOR Unavailable Nima FranceC Unavailable [phone] Basilio Morillo DO Unavailable [phone] Fawad York MD Unavailable [phone] Roopa Almonte MD Unavailable [phone] Augustine Callaway MD Unavailable Maryse Burton [...] Paula Reza MD Unavailable Keerthi Miner APRN LOAD HAUL DUMP OPERATOR Unavailable Herman, Shahida Cummings APRN LOAD HAUL DUMP OPERATOR Unavailable Un available Porsha Michaels APRN LOAD HAUL DUMP OPERATOR Unavailable [phone] Paula eRza MD Unavailable Herman, Shahida Cummings APRN LOAD HAUL DUMP OPERATOR Unavailable Un available Daylin Ludwig Unavailable [phone] Laurel Velasquez MD Unavailable Daylin Ludwig Unavailable [phone] Paula Reza MD Unavailable Porsha Michaels APRN LOAD HAUL DUMP OPERATOR Unavailable [phone] Laurel Velasquez MD Unavailable Herman, Shahida Cummings APRN LOAD HAUL DUMP OPERATOR Unavailable Un available Marilin Montaño LOAD HAUL DUMP OPERATOR Unavailable Esha Dewitt MD Unavailable [phone] Heather Mosquera MD Unavailable Paula Reza MD Unavailable Esha Dewitt MD Unavailable [phone] Valdo Escamilla PA-C Unavailable Nohelia Abarca-C Unavailable [phone] Heather Mosquera MD Unavailable Fawad York MD Unavailable [phone] Encounter Details Date Type Department Care Team (Late st Contact Info) Description 05/07/[address] [phone] [facility] Social History Tobacco Use Types Packs/Day Years [...] COVID-19 02/15/2020 02/15/2020 02/16/2020 2:32 PM CLINICAL REVIEW SPECIALIST Rule Out COVID-19 01/05/2021 01/05/2021 01/06/2021 12:57 PM CDT ESBL 01/05/2021 01/05/2021 Rule Out COVID-19 06/30/2021 06/30/2021 07/01/2021 9:34 AM CDT Rule Out COVID-19 07/25/2021 07/25/2021 07/25/2021 8:02 PM CDT documented as of this encounter Care Teams Electric Meter Repairer Apprentice Relationship Specialty Start Date End Date Dixon Carson MD PCP - General 08/10/03 07/21/09 Mingo Aldana MD PCP - General Family Practice 07/22/09 07/12/14 Shahida Sutton APRN LOAD HAUL DUMP OPERATOR PCP - General Nurse Practitioner 08/17/14 08/04/21 Shahida Sutton APRN LOAD HAUL DUMP OPERATOR PCP - Assigned PCP 07/12/14 05/07/18 Paula Reza MD [address] [place], [place] [address] PCP - General Internal Medicine 08/05/21 Shahida Sutton APRN LOAD HAUL DUMP OPERATOR Assigned PCP 07/12/14 09/30/21 Carolynn Ramon, KASIE Personal Advocate & Liaison (PAL) 12/17/18 08/07/21 [place] [address] [place], [place] [address] Assigned Musculoskeletal Provider 12/26/19 08/21/20 Brady Lion MD Assigned Heart and Vascular Provider 12/26/19 08/14/20 Nima France PA-C [address] [place] [address] Assigned Surgical Provider 05/19/20 08/21/20 Camille Chandler PA-C [address] [facility] [address] [place] [address] Assigned Neuroscience Provider 05/19/20 09/14/20 Anabela Barakat APRN CNP 1700 [place] [address] Assigned Heart and Vascular Provider 08/15/20 08/05/21 Nima France PA-C [address] [facility] 450 [place] [address] Assigned Musculoskeletal Provider 08/22/20 11/13/20 [place] [address] [place], [place] [address] Assigned Musculoskeletal Provider 11/14/20 12/04/20 Fawad York MD [address] [place], [place] [address] Assigned Musculoskeletal Provider 12/05/20 02/05/21 Roopa Almonte MD [address] [facility] 200 [place] [address] Endocrinology, Diabetes, and Metabolism 01/19/21 [place] [address] [facility] [address] [place] [address] Assigned Musculoskeletal Provider 02/06/21 09/16/21 Maryse Burton PA-C [address] [facility] [place] [address] Physician Helpdesk Specialist Dermatology 04/14/21 Marquita Starkey MD [address] [facility] [address] [place] [address] Internal Medicine 05/06/21 05/06/21 Roopa Almonte MD [address] [facility] 200 [place] [address] Hospitalist Endocrinology, Diabetes, and Metabolism 05/30/21 Griffin Joshi MD [address] [place] [address] Cardiovascular Disease 07/25/21 Rina Magallon, RN Lead Licensed Midwife 07/29/21 07/11/22 Griffin Joshi MD [address] [place] [address] Assigned Heart and Vascular Provider 08/06/21 10/07/21 Roopa Almonte MD [address] [facility] 200 [place] [address] Assigned Endocrinology Provider 09/10/21 [place] [address] [facility] [place] [address] Assigned Musculoskeletal Provider 09/17/21 10/14/21 Lydia Bernstein PA-C [address] [place] [address] Assigned PCP 10/01/21 10/21/21 Rosa Maria Love [facility] Community Health Worker 10/06/21 [place] [address] [place] [address] Assigned Musculoskeletal Provider 10/15/21 04/26/23 Paula Reza MD [address] [place] [address] Assigned PCP 10/22/21 12/23/21 Keerthi Miner APRN LOAD HAUL DUMP OPERATOR [address] [place] [address] Assigned Heart and Vascular Provider 10/08/21 02/10/22 Shahida Sutton APRN LOAD HAUL DUMP OPERATOR Assigned PCP 12/24/21 03/24/22 Porsha Michaels APRN LOAD HAUL DUMP OPERATOR [address] [address] Assigned Heart and Vascular Provider 02/11/22 05/12/22 Paula Reza MD [address] [place] [address] Assigned PCP 03/25/22 04/07/22 Shahida Sutton APRN LOAD HAUL DUMP OPERATOR [address] [place] [address] Assigned PCP 04/08/22 06/30/22 Daylin Ludwig EP [facility] [address] [place] [address] [address] Cardiac Rehabilitation Therapist 05/16/23 Laurel Velasquez MD [address] [place] [address] Assigned Heart and Vascular Provider 05/13/22 06/30/22 Daylin Ludwig EP [facility] [address] [place] [address] Cardiac Rehabilitation Therapist 06/08/22 06/09/23 Paula Reza MD [address] [facility] [address] [place] [address] Assigned PCP 07/01/22 07/07/22 Porsha Michaels APRN LOAD HAUL DUMP OPERATOR [address] [place] [address] Assigned Heart and Vascular Provider 07/01/22 07/07/22 Laurel Velasquez MD [address] [place] [address] Assigned Heart and Vascular Provider 07/08/22 08/04/22 Shahida Sutton APRN LOAD HAUL DUMP OPERATOR Assigned PCP 07/08/22 09/08/22 Marilin Montaño, LOAD HAUL DUMP OPERATOR [address] [place] [address] Assigned Heart and Vascular Provider 08/05/22 Esha Dewitt MD [address] [place] [address] 36 [place], [place] [address] Gastroenterology 09/06/22 Heather Mosquera MD [address] [place] [address] Internal Medicine 09/06/22 Paula Reza MD [address] [facility] 200 [place] [address] Assigned PCP 09/09/22 01/05/23 Esha Dewitt MD 420 [facility] 36 [place] [address] Assigned Gastroenterology Provider 09/23/22 Valdo Escamilla PA-C [address] [facility] [address] [place] [address] Assigned Neuroscience Provider 09/30/22 Nohelia Abarca PA-C [address]50 [place] [address] Physician Helpdesk Specialist Gastroenterology 10/03/22 Heather Mosquera MD [address] [place] [address] Assigned PCP 01/06/23 Fawad York MD [address] [place], [place] [address] Assigned Musculoskeletal Provider 04/27/23 06/25/23 documented as of this encounter
--- OUTSIDE RECORDS SUMMARY | 2023-10-02 15:53 | XMS_ITS | Encounter Summary ---
Author Organization [facility] Address [address] [place] [address] Care Team Providers Care Motorboat Mechanic Helper Name Role Phone Dixon Carson MD Primary Care Provider Mingo Aldana MD Primary Car e Provider Shahida Sutton MICROBIOLOGICAL ANALYST NON CATEGORICAL PRESCHOOL TEACHER Primary Care Provi ford Unavailable Herman, Shahida Cummings APRN NON CATEGORICAL PRESCHOOL TEACHER Unavailable Un available Herman, Shahida Cummings APRN NON CATEGORICAL PRESCHOOL TEACHER Unavailable Un available Carolynn Ramon RN Unavailable [phone] Augustine Callaway MD Unavailable Brady Lion MD Unavailable Un available Nima FranceC Unavailable [phone] Camille Chandler PA-C Unavailable [phone] Anabela Barakat APRN NON CATEGORICAL PRESCHOOL TEACHER Unavailable Nima FranceC Unavailable [phone] Basilio Morillo DO Unavailable [phone] Fawad York MD Unavailable [phone] Roopa Almonte MD Unavailable [phone] Augustine Callaway MD Unavailable Maryse Burton [...] Paula Reza MD Unavailable Keerthi Miner APRN NON CATEGORICAL PRESCHOOL TEACHER Unavailable Herman, Shahida Cummings APRN NON CATEGORICAL PRESCHOOL TEACHER Unavailable Un available Porsha Michaels APRN NON CATEGORICAL PRESCHOOL TEACHER Unavailable [phone] Paula Reza MD Unavailable Herman, Shahida Cummings APRN NON CATEGORICAL PRESCHOOL TEACHER Unavailable Un available Daylin Ludwig Unavailable [phone] Laurel Velasquez MD Unavailable Daylin Ludwig Unavailable [phone] Paula Reza MD Unavailable Porsha Michaels APRN NON CATEGORICAL PRESCHOOL TEACHER Unavailable [phone] Laurel Velasquez MD Unavailable Herman, Shahida Cummings APRN NON CATEGORICAL PRESCHOOL TEACHER Unavailable Un available Marilin Montaño NON CATEGORICAL PRESCHOOL TEACHER Unavailable Esha Dewitt MD Unavailable [phone] Heather Mosquera MD Unavailable Paula Reza MD Unavailable Esha Dewitt MD Unavailable [phone] Andi Valdo Desouza PA-C Unavailable [phone] Nohelia AbarcaC Unavailable [phone] Heather Mosquera MD Unavailable [phone] Fawad York MD Unavailable [phone] Reason for Visit * Reason Onset Date Comments MyChart Communication 12/31/2006 counseling ? Encounter Details Date Type Department Care Team (Late st Contact Info) Description 12/28/2006 [facility] [address] [address] Mingo Aldana MD [facility] [address] [place], [place] [id number] MyChart Communication (counseling ?) Social History Tobacco [...] PM CDT Can we refer patient to [facility] at the [facility] in [place]. [phone] Mingo Aldana MD [facility] documented in this encounter Plan of Treatment Not on file documented as of this encounter Visit Diagnoses Not on filedocumented in this encounter Additional Health Concerns Infection Onset Date Last Indicated Resolved Time Rule Out COVID-19 02/15/2020 02/15/2020 02/16/2020 2:32 PM EXCELLENCE MANAGER Rule Out COVID-19 01/05/2021 01/05/2021 01/06/2021 12:57 PM CDT ESBL 01/05/2021 01/05/2021 Rule Out COVID-19 06/30/2021 06/30/2021 07/01/2021 9:34 AM CDT Rule Out COVID-19 07/25/2021 07/25/2021 07/25/2021 8:02 PM CDT documented as of this encounter Care Teams Motorboat Mechanic Helper Relationship Specialty Start Date End Date Dixon Carson MD PCP - General 08/10/03 07/21/09 Mingo Aldana MD PCP - General Family Practice 07/22/09 07/12/14 Shahida Sutton APRN NON CATEGORICAL PRESCHOOL TEACHER PCP - General Nurse Practitioner 08/17/14 08/04/21 Shahida Sutton APRN NON CATEGORICAL PRESCHOOL TEACHER PCP - Assigned PCP 07/12/14 05/07/18 Paula Reza MD [address] [facility] [address] [place] [address] PCP - General Internal Medicine 08/05/21 Shahida Sutton APRN NON CATEGORICAL PRESCHOOL TEACHER Assigned PCP 07/12/14 09/30/21 Carolynn Ramon, KASIE Personal Advocate & Liaison (PAL) 12/17/18 08/07/21 [place] [address] [place] [address] Assigned Musculoskeletal Provider 12/26/19 08/21/20 Brady Lion MD Assigned Heart and Vascular Provider 12/26/19 08/14/20 Nima France PA-C [address] [place] [address] Assigned Surgical Provider 05/19/20 08/21/20 Camille Chandler PA-C [address] [place] [address] Assigned Neuroscience Provider 05/19/20 09/14/20 Anabela Barakat APRN NON CATEGORICAL PRESCHOOL TEACHER [address] [place] [address] Assigned Heart and Vascular Provider 08/15/20 08/05/21 Nima France PA-C [address] [place], [place] [address] Assigned Musculoskeletal Provider 08/22/20 11/13/20 [place] [address] [facility] [place] [address] Assigned Musculoskeletal Provider 11/14/20 12/04/20 Fawad York MD [address] [place], [place] [address] Assigned Musculoskeletal Provider 12/05/20 02/05/21 Roopa Almonte MD [address] [facility] [address] [place] [address] Endocrinology, Diabetes, and Metabolism 01/19/21 [place] [address] [facility] [address] [place] [address] Assigned Musculoskeletal Provider 02/06/21 09/16/21 Maryse Burton PA-C [address] [place] [address] Physician Cooperage Shop Supervisor Dermatology 04/14/21 Marquita Starkey MD [address] [facility] [address] [place] [address] Internal Medicine 05/06/21 05/06/21 Roopa Almonte MD [address] [facility] [address] [place] [address] Hospitalist Endocrinology, Diabetes, and Metabolism 05/30/21 Griffin Joshi MD [address] [place] [address] Cardiovascular Disease 07/25/21 Rina Magallon, RN Lead Equipment Inspector 07/29/21 07/11/22 Griffin Joshi MD [address] [place] [address] Assigned Heart and Vascular Provider 08/06/21 10/07/21 Roopa Almonte MD [address] [address] [place] [address] Assigned Endocrinology Provider 09/10/21 [place] [address] [facility] [place] [address] Assigned Musculoskeletal Provider 09/17/21 10/14/21 Lydia Bernstein PA-C [address] [place] [address] Assigned PCP 10/01/21 10/21/21 Rosa Maria Love Cristina Community Health Worker 10/06/21 [place] [address] [facility] [address] [place] [address] Assigned Musculoskeletal Provider 10/15/21 04/26/23 Paula Reza MD [address] [facility] [address] [place] [address] Assigned PCP 10/22/21 12/23/21 Keerthi Miner APRN NON CATEGORICAL PRESCHOOL TEACHER [address] [place] [address] Assigned Heart and Vascular Provider 10/08/21 02/10/22 Shahida Sutton APRN NON CATEGORICAL PRESCHOOL TEACHER Assigned PCP 12/24/21 03/24/22 Porsha Michaels APRN NON CATEGORICAL PRESCHOOL TEACHER [address] [place] [address] Assigned Heart and Vascular Provider 02/11/22 05/12/22 Paula Reza MD [address] [place] [address] Assigned PCP 03/25/22 04/07/22 Shahida Sutton APRN NON CATEGORICAL PRESCHOOL TEACHER [address] [place] [address] Assigned PCP 04/08/22 06/30/22 Daylin Ludwig, EP [facility] [address] [place] [address] Cardiac Rehabilitation Therapist 05/16/23 Laurel Velasquez MD [address] [place] [place] [address] Assigned Heart and Vascular Provider 05/13/22 06/30/22 Daylin Ludwig, [facility] [address] [place] [address] Cardiac Rehabilitation Therapist 06/08/22 06/09/23 Paula Reza MD [address] [place] [address] Assigned PCP 07/01/22 07/07/22 Porsha Michaels APRN NON CATEGORICAL PRESCHOOL TEACHER [address] [place] [address] Assigned Heart and Vascular Provider 07/01/22 07/07/22 Laurel Velasquez MD [address] [place], [place] [address] Assigned Heart and Vascular Provider 07/08/22 08/04/22 Shahida Sutton, MICROBIOLOGICAL ANALYST NON CATEGORICAL PRESCHOOL TEACHER Assigned PCP 07/08/22 09/08/22 Marilin Montaño, NON CATEGORICAL PRESCHOOL TEACHER [address] [place] [address] Assigned Heart and Vascular Provider 08/05/22 Esha Dewitt MD [address] [address] Gastroenterology 09/06/22 Heather Mosquera MD [address] [place] [address] Internal Medicine 09/06/22 Paula Reza MD [address] [facility] [address] [place] [address] Assigned PCP 09/09/22 01/05/23 Esha Dewitt MD [address] [address] Assigned Gastroenterology Provider 09/23/22 Valdo Escamilla PA-C [address] [place] [address] Assigned Neuroscience Provider 09/30/22 Nohelia Abarca PA-C [address] [place] [address] Physician Cooperage Shop Supervisor Gastroenterology 10/03/22 Heather Mosquera MD [address] [address] Assigned PCP 01/06/23 Fawad York MD [address] [place], [place] [address] Assigned Musculoskeletal Provider 04/27/23 06/25/23 documented as of this encounter
--- OUTSIDE RECORDS SUMMARY | 2023-10-02 15:53 | XMS_ITS ---
Author Organization [facility] Address [address] [place] [address] Care Team Providers Care Systems Integration Analyst Name Role Phone Roopa Almonte MD Unavailable [phone] Maryse BurtonC Unavailable Roopa Almonte MD Unavailable [phone] Griffin Joshi MD Unavailable Paula Reza MD Primary Care Provider Roopa Almonte MD Unavailable Daylin Ludwig Unavailable Marilin Montaño CNP Unavailable [phone] Esha Dewitt MD Unavailable [phone] Heather Mosquera MD Unavailable [phone] Esha Dewitt MD Unavailable [phone] Valdo Escamilla-C Unavailable [phone] Nohelia Abarca PA-C Unavailable [phone] Heather Mosquera MD Unavailable [phone] Diabetes Self-Management Education Status:Enrolled (Active) Start date:01/19/2022 Enrollment date:02/23/2022 Current support & services provided:Type 2 Diabetes Management, Individual Education Continued Care and Services Coordination
--- OUTSIDE RECORDS SUMMARY | 2023-10-02 15:53 | XMS_ITS | Encounter Summary ---
Author Organization [facility] Address [address] [place] [address] Care Team Providers Care Throw Out Clerk Name Role Phone Dixon Carson MD Primary Care Provider Mingo Aldana MD Primary Car e Provider Shahida Sutton GENERAL SUPERINTENDENT PUBLIC HEALTH ANALYST Primary Care Provi ford Unavailable Herman, Shahida Cummings APRN PUBLIC HEALTH ANALYST Unavailable Un available Herman, Shahida Cummings APRN PUBLIC HEALTH ANALYST Unavailable Un available Carolynn Ramon RN Unavailable [phone] Augustine Callaway MD Unavailable Brady Lion MD Unavailable Un available Nima FranceC Unavailable [phone] Camille Chandler PA-C Unavailable [phone] Anabela Barakat APRN PUBLIC HEALTH ANALYST Unavailable Nima FranceC Unavailable [phone] Basilio Morillo DO Unavailable [phone] Fawad York MD Unavailable [phone] Roopa Almonte MD Unavailable [phone] Augustine Callaway MD Unavailable Maryse Burton [...] Paula Reza MD Unavailable Keerthi Miner APRN PUBLIC HEALTH ANALYST Unavailable Herman, Shahida Cummings APRN PUBLIC HEALTH ANALYST Unavailable Un available Porsha Michaels APRN PUBLIC HEALTH ANALYST Unavailable [phone] Paula Reza MD Unavailable Herman, Shahida Cummings APRN PUBLIC HEALTH ANALYST Unavailable Un available Daylin Ludwig Unavailable [phone] Laurel Velasquez MD Unavailable Daylin Ludwig Unavailable [phone] Paula Reza MD Unavailable Porsha Michaels APRN PUBLIC HEALTH ANALYST Unavailable [phone] Laurel Velasquez MD Unavailable Herman, Shahida Cummings APRN PUBLIC HEALTH ANALYST Unavailable Un available Marilin Montaño PUBLIC HEALTH ANALYST Unavailable [phone] Esha Dewitt MD Unavailable [phone] Heather Mosquera MD Unavailable [phone] Paula Reza MD Unavailable Esha Dewitt MD Unavailable [phone] Valdo Escamilla PA-C Unavailable [phone] Nohelia AbarcaC Unavailable [phone] Heather Mosquera MD Unavailable Fawad York MD Unavailable Encounter Details Date Type Department Care Team (Late st Contact Info) Description 04/17/2007 [facility] [address] [address] Dixon Carson MD [address] [address] Social History Tobacco Use Types [...] Out COVID-19 02/15/2020 02/15/2020 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 Rule Out COVID-19 01/05/2021 01/05/2021 01/06/2021 12:57 PM CDT ESBL 01/05/2021 01/05/2021 Rule Out COVID-19 06/30/2021 06/30/2021 07/01/2021 9:34 AM CDT Rule Out COVID-19 07/25/2021 07/25/2021 07/25/2021 8:02 PM CDT documented as of this encounter Care Teams Throw Out Clerk Relationship Specialty Start Date End Date Dixon Carson MD PCP - General 08/10/03 07/21/09 Mingo Aldana MD PCP - General Family Practice 07/22/09 07/12/14 Shahida Sutton APRN PUBLIC HEALTH ANALYST PCP - General Nurse Practitioner 08/17/14 08/04/21 Shahida Sutton APRN PUBLIC HEALTH ANALYST PCP - Assigned PCP 07/12/14 05/07/18 Paula Reza MD [address] [facility] [address] [place] [address] PCP - General Internal Medicine 08/05/21 Shahida Sutton APRN PUBLIC HEALTH ANALYST Assigned PCP 07/12/14 09/30/21 Carolynn Ramon, KASIE Personal Advocate & Liaison (PAL) 12/17/18 08/07/21 [place] [address] [place] [address] Assigned Musculoskeletal Provider 12/26/19 08/21/20 Brady Lion MD Assigned Heart and Vascular Provider 12/26/19 08/14/20 Nima France PA-C [address] [place] [address] Assigned Surgical Provider 05/19/20 08/21/20 Camille Chandler PA-C [address] [facility] [address] [place], [place] [address] Assigned Neuroscience Provider 05/19/20 09/14/20 Anabela Barakat APRN PUBLIC HEALTH ANALYST [address] [place] [address] Assigned Heart and Vascular Provider 08/15/20 08/05/21 Nima France PA-C [address] [facility] [address] [place] [address] Assigned Musculoskeletal Provider 08/22/20 11/13/20 [place] [address] [place], [place] [address] Assigned Musculoskeletal Provider 11/14/20 12/04/20 Fawad York MD [address] [place], [place] [address] Assigned Musculoskeletal Provider 12/05/20 02/05/21 Roopa Almonte MD [address] [facility] [address] [place] [address] Endocrinology, Diabetes, and Metabolism 01/19/21 [place] [address] [address] [facility] [address] [place] [address] Assigned Musculoskeletal Provider 02/06/21 09/16/21 Maryse Burton PA-C [address] [place] [address] Physician Interface Analyst Dermatology 04/14/21 Marquita Starkey MD [address] [facility] [address] [place] [address] Internal Medicine 05/06/21 05/06/21 Roopa Almonte MD [address] [facility] [address] [place] [address] Hospitalist Endocrinology, Diabetes, and Metabolism 05/30/21 Griffin Joshi MD [address] [place] [address] Cardiovascular Disease 07/25/21 Rina Magallon, RN Lead Associate Data Scientist 07/29/21 07/11/22 Griffin Joshi MD [address] [place] [address] Assigned Heart and Vascular Provider 08/06/21 10/07/21 Roopa Almonte MD [address] [place], [place] [address] Assigned Endocrinology Provider 09/10/21 [place] [address] [facility] [place] [address] Assigned Musculoskeletal Provider 09/17/21 10/14/21 Lydia Bernstein PA-C [address] [place] [address] Assigned PCP 10/01/21 10/21/21 Rosa Maria Love CHW Community Health Worker 10/06/21 [place] [address] [place] [address] Assigned Musculoskeletal Provider 10/15/21 04/26/23 Paula Reza MD [address] [place] [address] Assigned PCP 10/22/21 12/23/21 Keerthi Miner APRN PUBLIC HEALTH ANALYST [address] [place] [address] Assigned Heart and Vascular Provider 10/08/21 02/10/22 Shahida Sutton APRN PUBLIC HEALTH ANALYST Assigned PCP 12/24/21 03/24/22 Porsha Michaels APRN PUBLIC HEALTH ANALYST [address] [place] [address] Assigned Heart and Vascular Provider 02/11/22 05/12/22 Paula Reza MD [address] [place] [address] Assigned PCP 03/25/22 04/07/22 Shahida Sutton APRN PUBLIC HEALTH ANALYST [address] [place] [address] Assigned PCP 04/08/22 06/30/22 Daylin Ludwig EP [facility] [address] [place] [address] Cardiac Rehabilitation Therapist 05/16/23 Laurel Velasquez MD [address] [place] [address] Assigned Heart and Vascular Provider 05/13/22 06/30/22 Daylin Ludwig EP [facility] [address] [place] [address] Cardiac Rehabilitation Therapist 06/08/22 06/09/23 Paula Reza MD [address] [facility] [address] [place], [place] [address] Assigned PCP 07/01/22 07/07/22 Porsha Michaels APRN PUBLIC HEALTH ANALYST [address] [place] [address] Assigned Heart and Vascular Provider 07/01/22 07/07/22 Laurel Velasquez MD [address] [place] [address] Assigned Heart and Vascular Provider 07/08/22 08/04/22 Shahida Sutton, GENERAL SUPERINTENDENT PUBLIC HEALTH ANALYST Assigned PCP 07/08/22 09/08/22 Marilin Montaño, PUBLIC HEALTH ANALYST [address] [place] [address] Assigned Heart and Vascular Provider 08/05/22 Esha Dewitt MD [address] [place] [address] 36 [place], [place] [address] Gastroenterology 09/06/22 Heather Mosquera MD [address] [place] [address] Internal Medicine 09/06/22 Paula Reza MD [address] [place] [address] Assigned PCP 09/09/22 01/05/23 Esha Dewitt MD [address] [facility] 36 [place], [place] [address] Assigned Gastroenterology Provider 09/23/22 Valdo Escamilla PA-C [address] [facility] [address] [place] [address] Assigned Neuroscience Provider 09/30/22 Nohelia Abarca PA-C [address] [place], [place] [address] Physician Interface Analyst Gastroenterology 10/03/22 Heather Mosquera MD [address] [place] [address] Assigned PCP 01/06/23 Fawad York MD [address] [place], [place] [address] Assigned Musculoskeletal Provider 04/27/23 06/25/23 documented as of this encounter
--- OUTSIDE RECORDS SUMMARY | 2023-10-02 15:54 | XMS_ITS | Clinical Summary ---
Author Organization [facility] Address [place], [place] [address] Care Team Providers Care Residency Director Name Role Phone Yash Roy MD Primary [...] be used to read blood sugars, follow spring layer directions. 9 Each 3 01/31/2023 Active Dexcom G7 Tapping 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 for continuous blood glucose monitor (CGM)Indications:Ty pe 2 diabetes mellitus with complication, with long-term current use of insulin (HC) To be used to read blood sugars follow spring layer directions. 1 Each 01/31/2023 Active hydrOXYzine HCL [...] 0.4 mg sublingual tabletIndications:A cute anterior wall OK (HC) Place 1 Tablet (0.4 mg) under [...] Diagnosed Date Coronary artery disease invo lving [place] coronary artery of [place] heart without angina pectoris 04/24/2023 COPD (chronic [...] Chest pain 03/27/2021 07/07/2021 Acute anterior wall OK 02/06/201907/[address] elevation myocardia l infarction (STEMI) 02/06/2019 07/07/2021 Overview: DESTINY x1 pLAD 03/11/21 Morbid obesity 12/20/2014 02/05/2023 Pain in joint, shoulder region 05/12/2012 02/05/2023 Elbow pain 08/06/2007 02/05/2023 Acute encephalopathy 022 Hematoma of rectus sheath Cardiac arrest 11/09/2022 Encounters Date Type Department Care Team Description 08/25/2023 Refill [facility] [address] [place] [address] Jasen Witt, Refill Request (Lantus Solostar U-100 Insulin) 08/15/2023 Refill [place] [address] [place] [address] Jasen Witt, Refill Request (Lantus Solostar U-100 Insulin) 08/15/2023 Travel 07/19/2023 10:30 AM CDT Office Visit [facility] [address] [place] [address] Rebel Hernandez MD 07/19/2023 Travel 07/18/2023 1:00 PM CDT Ancillary Procedure [facility] [address] [place] [address] 07/18/2023 Travel 07/09/2023 Patient Outreach [facility] Care Management - Advanced Care Team [address] [place] [address] Linh Gandhi, HAND POTTER Complex Care Management (Complex Care Engagement) 07/03/2023 Patient Outreach [facility] Management - Care Management Navigation/[facility] [address] [place] [address] Marilin Dillard Care Management Intake (Identification Date - payer referral) from Last 3 Months Immunizations Name Administration Dates Next Due COVID-19 Vaccine Spikevax (M oderna 50mcg/0.5mL) 12YO+ [id number] Formula PF 02/21/2023 Influenza A (H1N1), Inactivated [...] Comments Blood Pressure 98/55 04/25/2023 4:15 PM HEALTH COORDINATOR Pulse 76 04/25/2023 4:15 PM HEALTH COORDINATOR Temperature 36.8 ??C (98.2 ??F) 04/25/2023 7:49 AM CS T Respiratory Rate 16 04/25/2023 7:49 AM HEALTH COORDINATOR Oxygen Saturation 94% 04/25/2023 4:08 PM HEALTH COORDINATOR Inhaled Oxygen Concentration - - Weight 109.4 kg (241 lb 3.2 oz) 04/25/2023 4:24 AM HEALTH COORDINATOR Height 180.3 cm (5' 11) 04/24/2023 12: 45 PM HEALTH COORDINATOR Body Mass Index 33.64 04/24/2023 12:45 PM HEALTH COORDINATOR Plan of Treatment Upcoming Encounters Date Type Department Care Team (Late st Contact Info) Description 10/03/2023 9:00 AM CDT Hospital Encounter [facility] [address] [place] [address] Marisol Richardson PA [address] [address] 10/03/2023 11:00 AM CDT Office Visit [facility] [address] [address] Jonas Pacheco MD [address] [address] 11/22/2023 Cardiac Device Check [facility] [phone] Health Maintenance Due Date Last Done Comments [...] ANTI HIV 1/2 Routine 02/21/2023 8:59 AM HEALTH COORDINATOR Screening for HIV (human immunodeficiency virus) ANTI HCV Routine 02/21/2023 8:59 AM HEALTH COORDINATOR Need for hepatitis C screening test LIPID [...] CDT ECHOCARDIOGRAM CHRISTIANO DURBIN ? Accession#: ?? [id number] : ?1960 62 years Study Date: ?? 07/18/2023 1:09:54 PM Gender: M ?BP: ? 98/55 mmHg Height: 180.00 cm ?BSA: ?2.29 m? ? ? Weight: 110.00 kg ?Tech: ? MSR ? Referring MD: YASH ROY Site: ? [facility] Reading Location: Mobile [...] documentation: 2ml ml diluted Definity, lot #[id number], [facility]# [id number] was administered peripherally to enhance visualization of all left ventricular segments. . This study was interpreted by an [facility] accredited facility. CC: [facility] ([facility]) [facility]. ??Final ?? Procedure Note Bruce Massey MD - 07/18/2023 ECHOCARDIOGRAM CHRISTIANO DURBIN : 1960 62 years Study Date: 07/18/2023 1:09:54 PM Gender: M BP: 98/55 mmHg Height: 180.00 cm BSA: 2.29 m? ? ? Weight: 110.00 kg Tech: MSR Referring MD: YASH ROY Site: [facility] Reading Location: Mobile OP Patient Location: Outpatient. [...] documentation: 2ml ml diluted Definity, lot #[id number], [facility]#[id number] was administered peripherally to enhance visualization of allleft ventricular segments. . This study was interpreted by an [facility] accredited facility. CC: [facility] ([facility]) [facility]. Final Yash Roy MD ECHO ORD * ANTI HCV (02/21/2023 8:59 AM HEALTH COORDINATOR) HEPATITIS C ANTIBODY Non-Reacti ve Non-React tomer 02/21/2023 1:07 PM HEALTH COORDINATOR [facility] Comment:Please note, per www .CDC.gov: If a patient is known to be at high risk of HCV infection, or is symptomatic, and the physician's suspicion of HCV infection is high, HCV RNA testing is often employed and is of diagnostic value, even after an initial negative anti-HCV test result. Blood BLOOD SPECIMEN / Unknown Venipuncture / Unknown 02/21/2023 8:59 AM HEALTH COORDINATOR 02/21/2023 8:59 AM HEALTH COORDINATOR Jasen Wempen Drevlow DO SEND OUTS Performing Organization Address [facility]/ZIP Co de Phone Number [facility] [address] [place] [address], [place] * ANTI HIV 1/2 [82631.0] (02/21/2023 8:59 AM HEALTH COORDINATOR) HIV-1/HIV-2 SCREEN Non-Reacti ve Non-Reacti ve 02/21/2023 1:01 PM HEALTH COORDINATOR [facility] Comment:HIV-1 p24 and HIV-1/ HIV-2 Ab Not Detected. Blood BLOOD SPECIMEN / Unknown Venipuncture / Unknown 02/21/2023 8:59 AM HEALTH COORDINATOR 02/21/2023 8:59 AM HEALTH COORDINATOR Jasen Witt DO SEND OUTS Performing Organization Address [facility] Co de Phone Number [facility] [address] [place] [address], [place] * (ABNORMAL) LIPID PANEL W REFLEX MEASURED LDL (12/29/2022 9:41 AM CDT) CHOLESTEROL,TOTAL 135 100 - 199 mg/dL 01/02/2023 6:46 PM [facility] Comment: Cholesterol, Total Reference Ranges Desirable <200 mg/dL Borderline 200-239 mg/dL High >=240 mg/dL TRIGLYCERIDES 137 <150 mg/dL 01/02/2023 6:46 PM [facility] HDL CHOLESTEROL 37(L) >40 mg/dL 6:46 PM [facility] NON-HDL CHOLESTEROL 98 <145 mg/dl 01/02/2023 6:46 PM [facility] CHOL/HDL RATIO 3.65 <4.50 01/02/2023 6:46 PM [facility] LDL CHOLESTEROL 71 <=130 mg/dL 01/02/2023 6:46 PM [facility] VLDL CHOLESTEROL 27 <=30 mg/dL 01/02/2023 6:46 PM [facility] PROVIDER ORDERED STATUS NOT GIVEN 01/02/2023 6:46 PM [facility] Blood BLOOD SPECIMEN / Unknown IV Start / Unknown 12/29/2022 9:41 AM CDT 12/29/2022 9:45 AM CDT Umberto Johnson MD CHEMISTRY [facility] [address] [place] [address] from Last 3 Months or Most Recently Relevant to Health Maintenance Additional Health Concerns Infection Onset Date Last Indicated MDRO Clearance Comment:Infection Control Note: 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 Do not delete or resolve the infection flag. 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
--- OUTSIDE RECORDS SUMMARY | 2023-10-02 15:54 | XMS_ITS | Continuity of Care Document ---
Author Organization [facility] Address [address] [address] [place] [address] Phone Care Team Providers Care Finance Insurance Manager Name Role Phone Brady Villela MD Unavailable [...] Encounter [facility], [address] [address], [place], [place], [id number], tel:[phone] [facility] No Information 0 0 Tika Abreu. [address] [facility] [address], [place], [place], [id number] , [place]. tel:[phone] [facility], [address] [address], [place], [place], [id number], [place] tel:[phone] Renny [facility] Gastroesophageal RefluxHiatal Hernia 8 Go MD [place]. [address] [facility], [facility] [address], [place], [place], [id number] , [place]. tel:[phone] Family History Family Member Type Diagnosis Age [...]
--- OUTSIDE RECORDS SUMMARY | 2023-10-02 15:54 | XMS_ITS | Continuity of Care Document ---
Author Organization [facility] Address [address] [place] [address] Phone Care Team Providers Care Cyber Security Architect Name Role Phone Rob Nice MD Unavailable Unavailable Allergies, Adverse Reactions, Alerts Substance Reaction Status Criticality lisinopril Active No Information Medications Medication Instructions Dosage Effective Dates (start - stop) Status Comments simvastatin 40 mg Tab take 1 tablet (40M G) by oral route every day in the evening 40 MG - Active Ambien CR 12.5 mg Tab take 1 tablet (12.5MG) by oral route every day at bedtime 12.5 MG - Active Maxalt 10 mg Tab take 1 tablet (10MG) by oral route once, may repeat at 2 hour intervals; do not exceed 30 mg in 24 hours 10 MG - Active Protonix 40 mg Tab take 1 tablet (40MG) by oral route every day 40 MG - Active naproxen sodium 550 mg Tab take 1 tablet (550MG) by oral route every 12 hours as needed 550 MG - Active multivitamin Cap take 1 capsule by oral route every day - Active Nasonex 50 mcg/actuation [place] spray 2 spray by intranasal route every day in each nostril - Active Provigil 200 mg Tab take 1 tablet (200MG ) by oral route every day in the morning 200 MG - Active metoprolol succinate ER 50 mg 24 hr Tab take 1 tablet (50MG) by oral route every day 50 MG - Active metformin 850 mg Tab take 1 tablet (850M G) by oral route 2 times every day with morning and evening meals 850 MG - Active lorazepam 1 mg Tab take 1 tablet (1MG) by oral route1-3 times every day as needed - Active Levemir 100 unit/mL Sub-Q 20units twice daily - Active hydrocodone-acetaminop hen 10 mg-325 mg Tab take 1 tablet by oral route every 8 hours as needed for pain - Active Amaryl 4 mg Tab take 1 tablet (4MG) by oral route every day - Active Relpax 40 mg Tab take 1 tablet (40MG) by oral route ; if headache returns, the dose may be repeated after 2 hours, but no more than two doses should be given within a 24-hour period. 40 MG - Active Flexeril 10 mg Tab Take 1/2-1 tablet 3 times daily as needed - Active aspirin, buffered 81 mg Tab Take 1 daily - Active Procedures Procedure Date Office Consultation Office/Outpatient Visit, New Routine Venipuncture Specimen Handling CReactive Protein Complete Cbc WAuto Diff Wbc Assay Of Ck (Cpk) Rbc Sed Rate, Nonautomated Assay Of Serum Albumin Assay Of Creatinine Transferase Ast Sgot Alanine Amino Alt Sgpt Results Test Name Date and Time Measure Units Reference Range Abnormal Flag Status Comments Panel Description: Antineutrophil Cytoplasmic Ab Final Cytoplasmic (C-ANCA) 00:06: 00 <1:20 titer Neg:<1:20 Final Perinuclear (P-ANCA) 00:06: 00 <1:20 titer Neg:<1:20 Final The presence o f positive fluorescence exhibiting P-ANCA or C-ANCApatterns alone is not specific for the diagnosis of Chuck'sGranulomatosi s (WG) or microscopic polyangiitis. Decisions abouttreatment should not be based solely on ANCA IFA results. TheInternational ANCA Group Consensus recommends follow up testing ofpositive sera with both [place]-3 and MPO-ANCA enzyme immunoassays. Asmany as 5% serum samples are positive only by EIA.Ref. AM J Clin Pathol 1999;111:507-513. Atypical pANCA 00:06: 00 <1:20 titer Neg:<1:20 Final The atypical p ANCA pattern has been observed in a significantpercentage of patients with ulcerative colitis, primary sclerosingcholangitis and autoimmune hepatitis. Panel Description: Aldolase Final Aldolase 00:06: 00 6.3 U/L 1.2-7.6 Final Panel Description: Rheumatoid Arthritis Profile Final RA Latex Turbid. 00:06: 00 11.7 IU/mL 0.0-13.9 Final CCP Antibodies IgG/IgA 00:06: 00 6 units 0-19 Final Negative <20 W eak positive 20 - 39 Moderate positive 40 - 59 Strong positive >59 Panel Description: SNOW Dir+SNOW IFA Final SNOW Direct 00:06: 00 Negative Negative Final Antinuclear Antibodies, IFA 00:06: 00 Negative Final Negative <1:80 Borderline 1:80 Positive >1:80 Panel Description: Lyme, Total Ab Test/Reflex F inal Lyme IgG/IgM Ab 00:06: 00 <0.91 index 0.00-0.90 Final Negative <0.91 Equivocal 0.91 - 1.09 Positive >1.09 Note: The CDC currently advises that Western blot testing be performed following all equivocal or positive EIA results. Final diagnosis should include appropriate clinical findings and a positive EIA which is also positive by Western blot. Lyme Ab Interp.,EIA 00:06: 00 Comment Final Lyme Ab Interp.,EIA 00:06: 00 Comment Final Panel Description: Vitamin D, 25-Hydroxy Final Vitamin D, 25-Hydroxy 00:06: 00 15.5 ng/mL 30.0-100.0 L Final Vitamin D defi ciency has been defined by the [place] of[place] and an Endocrine Society practice guideline as alevel of serum 25-OH vitamin D less than 20 ng/mL (1,2).The Endocrine Society went on to further define vitamin Dinsufficiency as a level between 21 and 29 ng/mL (2).1. IOM ([place] of [employer]). 2010. Dietary reference intakes for calcium and D. [place]: The National Academies Press.2. Dre MF, Jyoti GROVES, Luis BUTTS, et al. Evaluation, treatment, and prevention of vitamin D deficiency: an Endocrine Society clinical practice guideline. JCEM. 2010; 96(7):1911-30. Panel Description: HLA B 27 Disease Association Final HLA-B27 16:08: 00 Negative Final HLA-B*27 Negat tomer .This test was performed using PCR (Polymerase Chain Reaction)/SSOP(Sequenc e Specific Oligonucleotide Probes) technique. SBT (SequenceBased Typing) and/or SSP (Sequence Specific Primers) may be used assupplemental methods when necessary. Please contact HLA CustomerService at if you have any questions. . Director of HLA Laboratory Dr Clarke Lino, PhD Panel Description: CBC Final WBC 11:36: 00 9.0 K/uL 3.5-10.8 Final Lymphocyte% 11:36: 00 21.5 % 15.1-43.0 Final Mid% 11:36: 00 5.0 % 1.0-18.0 Final Gran% 11:36: 00 73.5 % 45.0-76.0 Final Lymphocyte # 11:36: 00 1.9 K/uL 0.9-5.2 Final Mid # 11:36: 00 0.4 K/uL 0.1-2.0 Final Gran # 11:36: 00 6.6 K/uL 1.4-9.1 Final RBC 11:36: 00 5.61 M/uL 3.80-5.70 Final Hemoglobin 11:36: 00 16.3 g/dL 11.5-18.0 Final Hematocrit 11:36: 00 47.3 % 36.0-54.0 Final MCV 11:36: 00 84 fL 81-100 Final MCH 11:36: 00 29 pg 27-35 Final MCHC 11:36: 00 34.5 g/dL 31.0-37.5 Final MPV 11:36: 00 9.1 fL 7.0-10.4 Final Platelet Count 11:36: 00 294 K/uL 130-400 Final Panel Description: ESR Final ESR 11:47: 00 12 mm/hr 0-25 Final Panel Description: DMARD Final AST 11:46: 00 23 U/L 5-34 Final ALT 11:46: 00 56 IU/L 5-40 H Final Creatinine 11:46: 00 0.9 mg/dL 0.5-1.3 Final ALB 11:46: 00 4.5 g/dL 3.5-5.3 Final GFR 11:46: 00 94.6 mL/min /1.73 m2 Final If patient is -[place] multiply result by 1.210 Panel Description: CPK Final CK 11:46: 00 57 U/L 38-174 Final Panel Description: CRP Final CRP 11:46: 00 0.36 MG/DL 0.00-0.60 Final Advance Directives Directive Yes / No Effective Date File Name Resuscitation Not Answered N/A N/A Life Support Not Answered N/A N/A Intubation Not Answered N/A N/A Antibiotics Not Answered N/A N/A IV Fluid Support Not Answered N/A N/A Tube Feed Not Answered N/A N/A Other Directive N/A N/A WARNING:The information contained in this section is historical and is provided for information only and does not constitute a legal document or any assurance that the information is still accurate. Please verify the information with the villarreal of the legal document before using it for clinical purposes. Encounters Encounter Description Practice Location Reason(s) For Visit Diagnoses Date Provider Providers Copied on Encounter Office Consultation [facility] , [address], [place], [address], [place] tel:[phone] [facility] , Joint Pain (chief complaint) Pain in joint involving multiple sitesMyalgia and myositis, unspecifiedF atigue / MalaiseUnspe cified sinusitis (chronic)Lum bago 4-201 2 Arlet Rivas. [facility] [address], [place], [address], [place]. tel:[phone] Referring Provider: Rob Faustin, [facility] [address], [place], [address]. tel:[phone] Family History Family Member Type Diagnosis Age At Onset Mother Problem (finding) Fibromyalgia Sister Problem (finding) multiple sclerosis (Cau se Of ) Mother Problem (finding) Jbhdigt-Zeene-Rufef dis ease Mother Problem (finding) rheumatoid arthritis Sister Problem (finding) Problem (finding) Payers Payer name Insurance type Covered republican ID Luz decker(s) [employer] [id number] Social History Type Description Quantity Date Captured Comments Alcohol Use Details No Caffeine Use Details soda 36oz per day Tobacco Use Status No Information Smoking Status Former smoker Smoking Tobacco Use Details Cigarette: Years Used 30 Cigarette: No Details Available Sex Male Vital Signs Date / Time: Height Weight BMI Pulse Rate Blood Pressure Temperature Respiratory Rate Body Surface Area Head Circumference Head Circ. Percentile Wt./Rashid. Percentile BMI percentile Pulse Ox Inhaled Ox 8:28 AM 185.00 cm 290.00 lbs 80 /min 140/70 mm[Hg] 97.00 F Chief Complaint And Reason For Visit From encounter dated '02/06/2012 08:30'. Joint Pain (chief complaint) Reason For Referral Reason For Referral No Information History Of Present Illness Encounter Date Complaint History Of Prese nt Illness No Information Functional Status Date Functional Assessmen t No Information Instructions Date Instruction Additional Infor mation No Information Assessments Type Assessment Date No Information Mental Status Date Cognitive Assessment Normal Orientation Patient Care Teams Name Effective Dates (start - stop) Status Members No Information
--- OUTSIDE RECORDS SUMMARY | 2023-10-02 15:54 | XMS_ITS | Clinical Summary ---
Author Organization [facility] Address [address], [place] [address] Care Team Providers Care Traffic Sign Supervisor Name Role Phone Ezra Roper MD Primary Care Provider [phone] Source Comments You are receiving this document as you are listed as the primary care provider,follow-up provider, or the patient has been referred to you for consultation.This is in compliance with the Medicare and[facility] Cent[facility]aid EHR Incentive Program,which states Providers who transition their patient to another setting of careor provider of care or refers their patient to another provider of care shouldprovide summary care record for each transition of care or referral. Sensiotec Allergies Active Allergy Reactions Criticality Noted Date [...] Comments Blood Pressure 170/82 04/17/2019 3:06 PM INVENTORY CONTROL ANALYST Pulse 84 04/17/2019 3:06 PM INVENTORY CONTROL ANALYST Temperature 36.9 ??C (98.5 ??F) 04/17/2019 12:[address] Respiratory Rate 18 04/17/2019 3:06 PM INVENTORY CONTROL ANALYST Oxygen Saturation 96% 04/17/2019 3:06 PM INVENTORY CONTROL ANALYST Inhaled Oxygen Concentration - - Weight - [...] age to complete this topic Care Teams Traffic Sign Supervisor Relationship Specialty [place] [address] [address] PCP - General 06/04/10
--- OUTSIDE RECORDS SUMMARY | 2023-10-02 15:55 | XMS_ITS | Continuity of Care Document ---
Author Organization [facility] Address [address] [place] [address] Phone Care Team Providers Care Non Destructive Testing Inspector Name Role Phone [facility], [facility] Unavailable Unavai lable Allergies, Adverse Reactions, Alerts Substance Reaction Status Criticality metoclopramide Active No Informatio n lamotrigine Active No Information lisinopril Active No Information Medications Medication Instructions Dosage Effective Dates (start - stop) Status Comments hydrocodone 5 mg-acetaminophen 325 mg tablet take 1 tablet by oral route 4 times every day as needed for pain - Active For chronic pain, tizanidine 4 mg tablet TAKE 1 TO 2 TABLETS BY MOUTH EVERY 8 HOURS NEEDED FOR MUSCLE SPASM - Active Jardiance 10 mg tablet take 1 tablet by oral route every day in the morning 10 MG - Active ENTRESTO (unknown strength) take 1 tablet by oral route 2 times every day Not Available - Active ASPIRIN (unknown strength) chew 2 tablet by oral route every day Not Available - Active metformin 500 mg tablet take 1 tablet by oral route 2 times every day with morning and evening meals 500 MG - Active hydroxyzine HCl 10 mg tablet - Active Procedures Procedure Date Destrct; Other Peripheral Nerv Fluoro Guidance - NonSpine CC Control For Rem/Void Of Mutually Excl usive Proc Change Control for Diagnosis(s) Change Control for Modifier(s) Other Periph Verified No Separate Anesthesia Camilo-18-2 024 Est Pt Eval Moderate No Show Visit Fee Est Pt Eval Telehealth Toxicology Test Group B Inj Anes Epidur; Lumb/sac 1 Le 24 Inj Anes Epidur; Lumb/sac-ea A 24 Inj Anes Epidur; Lumb/sac 1 Le 24 Trans Epid Lumbosac each addl 4 Verified No Separate Anesthesia 024 Inj Anes Agent; Suprascapular 4 Ultrason Guidan Needle Bx-rad 4 Suprascapular Block Ultrason Guidan Needle Bx-rad 4 Verified No Separate Anesthesia 024 Est Pt Eval Telehealth No Show Visit Fee Est Pt Eval Telehealth Est Pt Eval Moderate Toxicology Test Group B Est Pt Eval Telehealth Inject Joint Large Fluoro Needle NonSpine Est Pt Eval Telehealth Est Pt Eval Moderate Toxicology Test Group B Inj Anes Agent Other Peripher Fluoro Guidance - NonSpine Change Control for Diagnosis(s) 023 Other Periph Nerve Block Fluoro Needle NonSpine Verified No Separate Anesthesia 023 Est Pt Eval Telehealth Inj Anes Facet Jt; Lumb/sac-1st Level Se p Inj Anes Facet Jt; Lumb/sac-2nd Level Se Inj Anes Facet Jt; Lumb/sac-2nd Level Se Inj Anes Facet Jt; Lumb/sac-3rd Level Se p Inj Anes Facet Jt; Lumb/sac-3rd Level Se Inj Anes Facet Jt; Lumb/sac-2nd Level Se p2023 Inj Anes Facet Jt; Lumb/sac-1st Level Se Inj Anes Facet Jt; Lumb/sac-3rd Level Se Inj Anes Facet Jt; Lumb/sac-2nd Level Se Inj Anes Facet Jt; Lumb/sac-3rd Level Se Change Control for Modifier(s) Change Control for Procedure(s): 2022 No anesthesia report available in EHR. S Est Pt Eval Telehealth Psychiatric Diagnostic Evaluation Teleph one Only Est Pt Eval Telehealth Est Pt Eval Moderate Toxicology Test Group B Inject Joint Large Fluoro Needle NonSpine Arthrocentesis/aspir/inj; Lakisha Fluoro Guidance - NonSpine Change Control for Diagnosis(s) 023 Change Control for Modifier(s) Verified No Separate Anesthesia 023 Est Pt Eval 25 Min Telehealth 3 Inj Anes Agent Other Peripher Fluoro Guidance - NonSpine Change Control for Diagnosis(s) Other Periph Nerve Block Fluoro Needle NonSpine Verified No Separate Anesthesia 023 Est Pt Eval 25 Min Telehealth 3 Inj Anes Epidur; Lumb/sac-ea A Inj Anes Epidur; Lumb/sac 1 Le Inj Anes Epidur; Lumb/sac 1 Le Trans Epid Lumbosac each addl 3 Verified No Separate Anesthesia 023 Inject SI Joint Arthrography Sacroiliac Joint Injection CC Control For Rem/Void Of Mutually Excl usive Proc Verified No Separate Anesthesia 023 Est Pt Eval 25 Min Telehealth 3 No Show Visit Fee No Show Visit Fee Est Pt Eval 25 Min Toxicology Test Group B Est Pt Eval 25 Min Telehealth 3 Inject, Spine, Lumb/sacr, Epi/subarc w/ img Guid Inject, Spine, Lumb/sacr, Epi/subarc w/ img Guid Verified No Separate Anesthesia 023 Arthrocentesis/aspir/inj; Lakisha 23 Fluoro Guidance - NonSpine Change Control for Modifier(s) 23 Inject Joint Large Fluoro Needle NonSpine Verified No Separate Anesthesia 023 Est Pt Eval 25 Min Telehealth 3 Est Pt Eval 25 Min Telehealth 3 Est Pt Eval 25 Min Telehealth 2 Inj Anes Agent; Suprascapular 2 Fluoro Guidance - NonSpine Change Control for Diagnosis(s) 022 Est Pt Eval 25 Min No Charge Toxicology Test Group B Suprascapular Block Fluoro Needle NonSpine Est Pt Eval 25 Min Telehealth 2 Est Pt Eval 25 Min Telehealth 2 Therapeutic Exercise PT Eval - Low Complexity Est Pt Eval 25 Min Toxicology Test Group B Psychotherapy, 30 minutes with patient T elephone Only No Show Visit Fee Est Pt Eval 25 Min Telehealth 2 Psychotherapy, 30 minutes with patient J Est Pt Eval 25 Min Telehealth 2 Psychotherapy, 30 minutes with patient J Est Pt Eval 25 Min Toxicology Test Group B Psychotherapy, 30 minutes with patient M No Show Visit Fee No Show Visit Fee Psychiatric Diagnostic Evaluation Est Pt Eval 25 Min Telehealth 2 Est Pt Eval 25 Min Telehealth 2 Est Pt Eval 25 Min Telehealth 2 Est Pt Eval 25 Min Toxicology Test Group C Inject, Spine, Lumb/sacr, Epi/subarc w/ img Guid Inject, Spine, Lumb/sacr, Epi/subarc w/ img Guid Methylprednisolone Acetate-40 1 Change Control for Pharmaceuticals Est Pt Eval 25 Min Est Pt Eval 25 Min Telehealth 1 Est Pt Eval 25 Min Telehealth 1 No Show Visit Fee No Show Visit Fee Est Pt Eval 25 Min Telehealth 1 Est Pt Eval 25 Min Toxicology Test Group C Est Pt Eval 25 Min Telehealth 1 Inject SI Joint Arthrography Sacroiliac Joint Injection Methylprednisolone Acetate-40 1 Change Control for Pharmaceuticals Change Control for other claim elements No Show Visit Fee No Show Visit Fee Est Pt Eval 25 Min Telehealth 1 Sacroiliac Joint Injection Methylprednisolone Acetate-40 1 Change Control for Procedure(s): 2020 Change Control for Pharmaceuticals Inject SI Joint Arthrography Est Pt Eval 25 Min No Show Visit Fee Est Pt Eval 25 Min Telehealth 1 Est Pt Eval 25 Min Toxicology Test Group C No Show Visit Fee No Show Visit Fee Est Pt Eval 25 Min Telehealth Inj Anes Facet Jt; Lumb/sac-3rd Level Hi Inj Anes Facet Jt; Lumb/sac-1st Level Hi Inj Anes Facet Jt; Lumb/sac-2nd Level Hi Bupivicaine 30ml Change Control for Pharmaceuticals Inj Anes Facet Jt; Lumb/sac-1st Level Hi Inj Anes Facet Jt; Lumb/sac-2nd Level Hi Inj Anes Facet Jt; Lumb/sac-3rd Level Ma Psychotherapy, 30 minutes with patient M Psychotherapy, 30 minutes with patient F Est Pt Eval 25 Min Telehealth Psychotherapy, 30 minutes with patient J Est Pt Eval 25 Min Telehealth Psychotherapy, 30 minutes with patient J Manual Therapy Therapeutic Exercise Inject, Spine, Lumb/sacr, Epi/subarc w/ img Guid Methylprednisolone Acetate-40 1 Change Control for Diagnosis(s) 021 Change Control for [employer] Inject, Spine, Lumb/sacr, Epi/subarc w/ img Guid Psychotherapy, 30 minutes with patient D Est Pt Eval 15 Min Telehealth 0 No Show Visit Fee No Show Visit Fee Psychotherapy, 45 minutes with patient D Psychotherapy, 30 minutes with patient D Psychotherapy, 30 minutes with patient N Est Pt Eval 15 Min Toxicology Test Group C Psychotherapy, 45 minutes with patient N Psychiatric Diagnostic Evaluation Est Pt Eval 15 Min Telehealth 0 Est Pt Eval 15 Min Telehealth 0 Inject, Spine, Lumb/sacr, Epi/subarc w/ img Guid Moderate Sedation (older Than 5 Years) O Change Control for Procedure(s): 2019 Inject, Spine, Lumb/sacr, Epi/subarc w/ img Guid Methylprednisolone Acetate-40 0 Change Control for [employer]aceuticals Change Control for Diagnosis(s) 020 Est Pt Eval 25 Min Telehealth 0 PT Eval - Moderate Complexity 0 Therapeutic Exercise Est Pt Eval 15 Min Telehealth 0 Inject, Spine, Lumb/sacr, Epi/subarc w/ img Guid Methylprednisolone Acetate-40 0 Change Control for Diagnosis(s) 020 Change Control for Pharmaceuticals Inject, Spine, Lumb/sacr, Epi/subarc w/ img Guid Est Pt Eval 15 Min Telehealth 0 Est Pt Eval 15 Min Telehealth 0 New Pt Eval 45 Min Telehealth 0 Advance Directives Directive Yes / No Effective [...] Diagnoses Date Provider Providers Copied on Encounter [facility], [address], [address], [place], [address], [place] tel:[phone] [facility] Nicci shoulder pain (chief complaint) Pain in right shoulderNeuralgia and neuritis, unspecified 4 [facility]. [address], [place], [place], [address], [place]. tel:[phone] Jasen Miryam CHATMAN.Referri ng Provider: Joni Calderon, [address], [place], [address]. tel:[phone] [facility], [facility], [address], [place], [place], [address], [place] tel:[phone] [facility] No Information 4 Xin Quinones. [address], [place], [address], [place]. tel:[phone] Referring Provider: Joni Calderon, [address], [place], [address]. tel:[phone] [facility], [facility], [address], [place], [place], [address], [place] tel:[phone] [facility] No Information 4 Xin Quinones. [address], [place], [address], [place]. tel:[phone] Referring Provider: Joni Calderon, [address], [place], [address]. tel:[phone] Est Pt Eval Moderate [facility], [facility], [address], [place], [place], [address], [place] tel:[phone] [facility] lower back pain (chief complaint) Intervertebral disc disorders w radiculopathy, lumbar regionPain in left hipPrimary osteoarthritis of right shoulderBody mass index (BMI) 32.0-32.9, adult 4 Nilay Johnson. [address], [place], [place], [address], [place]. tel:[phone] Jasen Drevlow DO.Referri ng Provider: Shahida Sutton CNP, [address] [place], [address]. tel:[phone] [facility], [address], [place], [place], [address], [place] tel:[phone] [facility] No Information 4 Person Francisco Javier. [address], [place], [address], [place]. tel:[phone] Referring Provider: Shahida Sutton CNP, [address] [place], [address]. tel:[phone] Est Pt Eval Telehealth [facility], [address] [facility] [address], [place], [place], [address], [place] tel:[phone] [facility] lower back pain (chief complaint) Intervertebral disc disorders w radiculopathy, lumbar regionPrimary osteoarthritis of right shoulderPain in left hipBody mass index (BMI) 34.0-34.9, adult 4 Person Francisco Javier. [address] , [facility] [address], [place], [place], [address], [place]. tel:[phone] Jasen Drevlow DO.Referri ng Provider: Shahida Sutton CNP, [address] [place], [address]. tel:[phone] [facility], [address], [place], [place], [address], [place] tel:[phone] [facility] No Information 4 Person Francisco Javier. [address], [place], [address], [place]. tel:[phone] Referring Provider: Shahida Sutton CNP, [address] [place], [address]. tel:[phone] [facility], [address], [place], [place], [address], [place] tel:[phone] [facility] No Information 4 Davon Lehman. [address], [place], [address], [place]. tel:[phone] Referring Provider: Dominik Mays, [address], [place], [address]. tel:[phone] [facility], [address], [place], [address], [place] tel:[phone] [facility] lower back pain (chief complaint) hip pain (chief complaint) leg pain (chief complaint) Radiculopathy, lumbar regionElevated blood-pressure reading without diagnosis of hypertension 4 [facility]. [address], [place], [place], [address], [place]. tel:[phone] Jasen Witt DO.Referri ng Provider: Dominik Mays, [address], [place], [address]. tel:[phone] [facility], [address], [place], [place], [address], [place] tel:[phone] [facility] No Information 4 Davon Lehman. [address], [place], [address], [place]. tel:[phone] Referring Provider: Dominik Mays, [address], [place], [address]. tel:[phone] [facility], [address], [place], [address], [place] tel:[phone] [facility] shoulder pain (chief complaint) Pain in right shoulderNeuralgia and neuritis, unspecifiedPain in right shoulderNeuralgia and neuritis, unspecified 4 Xin Quinones. [address], [place], [address], [place]. tel:[phone] Jasen Witt DO.Referri ng Provider: Shahida Sutton WINCH OPERATOR, [address] [place], [address]. tel:[phone] [facility], [address], [place], [place], [address], [place] tel:[phone] [facility] No Information 4 Xin Quinones. [address], [place], [address], [place]. tel:[phone] Referring Provider: Joni Calderon, [address], [place], [address]. tel:[phone] [facility], [address], [place], [place], [address], [place] tel:[phone] [facility] No Information 4 Xin Quinones. [address], [place], [address], [place]. tel:[phone] Referring Provider: Joni Calderon, [address], [place], [address]. tel:[phone] Est Pt Eval Telehealth [facility], [address], [place], [place], [address], [place] tel:[phone] [facility] lower back pain (chief complaint) Primary osteoarthritis of right shoulderInterverte bral disc disorders w radiculopathy, lumbar regionPain in left hip 4 Person Francisco Javier. [address], [place], [place], [address], [place]. tel:[phone] Jasen Drevlow DO.Referri ng Provider: Shahida Sutton CNP, [address] [place], [address]. tel:[phone] REINIER Valentin, [address], [place], [place], [address], [place] tel:[phone] [facility] No Information 4 Adryanhannahmaria ines Espinosan. [address], [place], [address], [place]. tel:[phone] Referring Provider: Shahida Sutton CNP, [address] [place], [address]. tel:[phone] Est Pt Eval Telehealth [facility], [facility], [address], [place], [place], [address], [place] tel:[phone] [facility] left hip pain (chief complaint) back pain (chief complaint) Primary osteoarthritis of right shoulderPain in left hipIntervertebral disc disorders w radiculopathy, lumbar regionBody mass index (BMI) 34.0-34.9, adult 4 Stacie Vaughn. [address] , [address], [place], [address], [place]. tel:[phone] Jasen Drevlow DO.Referri ng Provider: Shahida Sutton CNP, [address] [place], [address]. tel:[phone] Est Pt Eval Moderate [facility], [facility], [address], [place], [place], [address], [place] tel:[phone] [facility] back pain (chief complaint) bilateral shoulder pain (chief complaint) Pain in left hipIntervertebral disc disorders w radiculopathy, lumbar regionPrimary osteoarthritis of right shoulderBody mass index (BMI) 33.0-33.9, adult 4 Gaston Alcie. [address] [place], [address], [place]. tel:[phone] Jasen Drevlow DO.Referri ng Provider: Shahida Sutton CNP, [address] [place], [address]. tel:[phone] [facility], [address], [place], [place], [address], [place] tel:[phone] [facility] No Information 4 Gaston Alice. [address] [place], [address], [place]. tel:[phone] Referring Provider: Shahida Sutton CNP, [address] [place], [address]. tel:[phone] Est Pt Eval Telehealth [facility], [address], [place], [place], [address], [place] tel:[phone] [facility] left hip pain (chief complaint) Body mass index (BMI) 35.0-35.9, adultPain in left hipSacroiliitisInt ervertebral disc disorders w radiculopathy, lumbar region 4 She Qiying. [address] , [address], [place], [address], [place]. tel:[phone] Jasen Drevlow DO.Referri ng Provider: Shahida Sutton CNP, [address] [place], [address]. tel:[phone] [facility], [address], [place], [place], [address], [place] tel:[phone] [facility] left hip pain (chief complaint) Pain in left hipOsteoarthritis of hip, unspecifiedPain in left hipOsteoarthritis of hip, unspecified 4 Foster Dominik. [address], [place], [address], [place]. tel:[phone] Jasen Drevlow DO.Referri ng Provider: Shahida Sutton CNP, [address] [place], [address]. tel:[phone] Est Pt Eval Telehealth [facility], [address], [place], [place], [address], [place] tel:[phone] [facility] back pain (chief complaint) Neck Pain (chief complaint) Body mass index (BMI) 35.0-35.9, adultPain in left hipSacroiliitis 4 She Roderick. [address] , [facility] [address], [place], [address], [place]. tel:[phone] Jasen Drevlow DO.Referri ng Provider: Shahida Sutton CNP, [address] [place], [address]. tel:[phone] Est Pt Eval Moderate [facility], [address], [place], [place], [address], [place] tel:[phone] [facility] left hip pain (chief complaint) Pain in left hipSacroiliitisBod y mass index (BMI) 35.0-35.9, adult Nov-3 3 Gaston Alice. [address] [place], [address], [place]. tel:[phone] Jasen Drevlow DO.Referri ng Provider: Shahida Sutton CNP, [address] [place], [address]. tel:[phone] [facility], [address], [place], [place], [address], [place] tel:[phone] [facility] No Information 3 Gaston Alice. [address], [place], [address], [place]. tel:[phone] Referring Provider: Shahida Sutton CNP, [address] [place], [address]. tel:[phone] [facility], [address], [address], [place], [address], [place] tel:[phone] [facility] left hip pain (chief complaint) Pain in left hipNeuralgia and neuritis, unspecified 3 [facility]. [address], [place], [place], [address], [place]. tel:[phone] Referring Provider: Shahida Sutton CNP, [address] [place], [address]. tel:[phone] [facility], [address], [place], [place], [address], [place] tel:[phone] [facility] No Information 3 Michelle De Luna. [address], [place], [address], [place]. tel:[phone] Referring Provider: Annamarie Martinez , [address], [place], [address]. tel:[phone] [facility], [address], [place], [place], [address], [place] tel:[phone] [facility] No Information 3 Michelle De Luna. [address], [place], [address], [place]. tel:[phone] Referring Provider: Annamarie Martinez , [address], [place], [address]. tel:[phone] Est Pt Eval Telehealth [facility], [facility], [address], [place], [address], [place] tel:[phone] [facility] left hip pain (chief complaint) Pain in left hipBody mass index (BMI) 35.0-35.9, adult Oct 3 Gaston Alice. [address] [place], [address], [place]. tel:[phone] Referring Provider: Shahida Sutton WINCH OPERATOR, [address] [place], [address]. tel:[phone] [facility], [address], [place], [address], [place] tel:[phone] [facility] back pain (chief complaint) Spondylosis w/o myelopathy or radiculopathy, lumbar regionSacroiliitis Spondylosis w/o myelopathy or radiculopathy, lumbar region Nov- 3 [facility]. [address], [place], [place], [address], [place]. tel:[phone] Referring Provider: Joni Calderon, [address], [place], [address]. tel:[phone] [facility], [address], [place], [place], [address], [place] tel:[phone] [facility] No Information Nov- 3 Xin Quinones. [address], [place], [address], [place]. tel:[phone] Referring Provider: Joni Calderon, [address], [place], [address]. tel:[phone] [facility], [address], [place], [place], [address], [place] tel:[phone] [facility] No Information Sep- 3 Xin Quinones. [address], [place], [address], [place]. tel:[phone] Referring Provider: Joni Calderon, [address], [place], [address]. tel:[phone] Est Pt Eval Telehealth [facility], [address], [place], [place], [address], [place] tel:[phone] [facility] back pain (chief complaint) Radiculopathy, lumbar regionPain in left hipBody mass index (BMI) 36.0-36.9, adult Sep-2 3 Stacie Vaughn. [address], [address], [place], [address], [place]. tel:[phone] Referring Provider: Shahida Sutton CNP, [address] [place], [address]. tel:[phone] Psychiatric Diagnostic Evaluation Telephone Only [facility], [address], [place], [place], [address], [place] tel:[phone] [facility] Pain disorder with related psychological factorsMajor depressive disorder, recurrent, mild Sep- 3 Lopez Moreira. [address], [place], [place], [address], [place]. tel:[phone] Referring Provider: Shahida Sutton CNP, [address] [place], [address]. tel:[phone] Est Pt Eval Telehealth [facility], [address], [place], [place], [address], [place] tel:[phone] [facility] back pain (chief complaint) Body mass index (BMI) 36.0-36.9, adultRadiculopathy , lumbar regionPain in left hip Nov-0 3 Roly Espinosan. [address], [place], [address], [place]. tel:[phone] Referring Provider: Shahida Sutton CNP, [address] [place], [address]. tel:[phone] Est Pt Eval Moderate [facility], [facility], [address], [place], [place], [address], [place] tel:[phone] [facility] back pain (chief complaint) Radiculopathy, lumbar regionPain in left hipBody mass index (BMI) 36.0-36.9, adultEssential (primary) hypertensionLow back pain Oct- 3 Ketola Aydee. [address], [address], [place], [address], [place]. tel:[phone] Referring Provider: Shahida Sutton CNP, [address] [place], [address]. tel:[phone] [facility], [facility], [address], [place], [address], [place] tel:[phone] [facility] No Information 3 Ketola Aydee. [address], [address], [place], [address], [place]. tel:[phone] Referring Provider: Shahida Sutton CNP, [address] [place], [address]. tel:[phone] [facility], [facility], [address], [place], [address], [place] tel:[phone] [facility] No Information 3 Foster Dominik. [address], [place], [address], [place]. tel:[phone] Referring Provider: Dominik Mays, [address], [place], [address]. tel:[phone] [facility], [address], [place], [address], [place] tel:[phone] [facility] left hip pain (chief complaint) Osteoarthritis of hip, unspecifiedPain in left hipOsteoarthritis of hip, unspecifiedPain in left hip 3 [facility]. [address], [place], [place], [address], [place]. tel:[phone] Referring Provider: Dominik Mays, [address], [place], [address]. tel:[phone] MITZY Valentin, [address], [place], [place], [address], [place] tel:[phone] [facility] No Information 3 Davon Lehman. [address], [place], [address], [place]. tel:[phone] Referring Provider: Dominik Mays, [address], [place], [address]. tel:[phone] [facility], [address], [place], [place], [address], [place] tel:[phone] [facility] Osteoarthritis of hip, unspecified 3 Maria Isabel Al. [address], [place], [place], [address], [place]. tel:[phone] Referring Provider: Shahida Sutton [facility], [address] [facility], [place], [address]. tel:[phone] Est Pt Eval 25 Min Telehealth [facility], [facility], [address], [place], [place], [address], [place] tel:[phone] [facility] back pain (chief complaint) Radiculopathy, lumbar regionPain in left hipSacroiliitisBod y mass index (BMI) 36.0-36.9, adult Sep- 3 Ketola Aydee. [address], [place], [place], [address], [place]. tel:[phone] Referring Provider: Shahida Sutton [facility], [address] [place], [address]. tel:[phone] [facility], [address], [address], [place], [address], [place] tel:[phone] [facility] left hip pain (chief complaint) Pain in left hipPain in left hipNeuralgia and neuritis, unspecified 3 [facility]. [address], [place], [place], [address], [place]. tel:[phone] Referring Provider: Annamarie Martinez , [address], [place], [address]. tel:[phone] [facility], [address], [place], [place], [address], [place] tel:[phone] [facility] No Information 3 Michelle De Luna. [address], [place], [address], [place]. tel:[phone] Referring Provider: Annamarie Martinez , [address], [place], [address]. tel:[phone] [facility], [address], [place], [place], [address], [place] tel:[phone] [facility] No Information 3 Michelle De Luna. [address], [place], [address], [place]. tel:[phone] Referring Provider: Annamarie Martinez , [address], [place], [address]. tel:[phone] Est Pt Eval 25 Min Telehealth [facility], [facility], [address], [place], [place], [address], [place] tel:[phone] [facility] back pain (chief complaint) Pain in left hipRadiculopathy, lumbar regionSacroiliitis Body mass index (BMI) 36.0-36.9, adult 3 Ketola Utah. [address], [place], [place], [address], [place]. tel:[phone] Referring Provider: Shahida Sutton [employer], [address] [facility], [place], [address]. tel:[phone] [facility], [address], [address], [place], [address], [place] tel:[phone] [facility] back pain (chief complaint) Radiculopathy, lumbar regionRadiculopath y, lumbar region 3 [facility]. [address], [place], [place], [address], [place]. tel:[phone] Referring Provider: Dominik Mays, [address], [place], [address]. tel:[phone] [facility], [address], [place], [place], [address], [place] tel:[phone] [facility] No Information 3 Foster Dominik. [address], [place], [address], [place]. tel:[phone] Referring Provider: Dominik Mays, [address], [place], [address]. tel:[phone] [facility], [address], [place], [place], [address], [place] tel:[phone] [facility] No Information 3 Foster Dominik. [address], [place], [address], [place]. tel:[phone] Referring Provider: Dominik Mays, [address], [place], [address]. tel:[phone] [facility], [address], [address], [place], [address], [place] tel:[phone] [facility] back pain (chief complaint) SacroiliitisSacroi liitis, not elsewhere classified 3 [facility]. [address], [place], [place], [address], [place]. tel:[phone] Referring Provider: Shahida Sutton [facility], [address] [facility], [place], [address]. tel:[phone] [facility], [address], [place], [place], [address], [place] tel:[phone] [facility] No Information 3 Foster Dominik. [address], [place], [address], [place]. tel:[phone] Referring Provider: Dominik Mays, [address], [place], [address]. tel:[phone] [facility], [facility], [address], [place], [place], [address], [place] tel:[phone] [facility] No Information 3 Davon Lehman. [address], [place], [address], [place]. tel:[phone] Referring Provider: Dominik Mays, [address], [place], [address]. tel:[phone] Est Pt Eval 25 Min Telehealth [facility], [address], [place], [place], [address], [place] tel:[phone] [facility] back pain (chief complaint) Radiculopathy, lumbar regionPain in left hipSacroiliitisBod y mass index (BMI) 36.0-36.9, adult 3 Ketola Utah. [address], [place], [place], [address], [place]. tel:[phone] Referring Provider: Shahida Sutton CNP, [address] [place], [address]. tel:[phone] [facility], [address], [place], [place], [address], [place] tel:[phone] [facility] No Information 3 Lenapah Erin. [address], [place], [address], [place]. tel:[phone] Referring Provider: Shahida Sutton CNP, [address] [facility], [place], [address]. tel:[phone] [facility], [address], [address], [place], [address], [place] tel:[phone] [facility] No Information 3 Michelle Annamarie. [address], [place], [address], [place]. tel:[phone] Referring Provider: Shahida Sutton CNP, [address] [place], [address]. tel:[phone] Est Pt Eval 25 Min [facility], [address], [place], [place], [address], [place] tel:[phone] [facility] back pain (chief complaint) Radiculopathy, lumbar regionPain in left hipSacroiliitisBod y mass index (BMI) 36.0-36.9, adult Jun- 3 Ketola Utah. [address] , [facility] [address], [place], [address], [place]. tel:[phone] Referring Provider: Shahida Sutton CNP, [address] [place], [address]. tel:[phone] [facility], [address] [facility] [address], [place], [address], [place] tel:[phone] [facility] No Information 3 Ketola Aydee. [address] [facility] [address], [place], [address], [place]. tel:[phone] Referring Provider: Shahida Sutton CNP, [address] [place], [address]. tel:[phone] Est Pt Eval 25 Min Telehealth [facility], [address], [place], [address], [place] tel:[phone] [facility] back pain (chief complaint) bilateral hip pain (chief complaint) Radiculopathy, lumbar regionPain in left hipSacroiliitisBod y mass index (BMI) 37.0-37.9, adult Mar- 0 3 Ketola Aydee. [address], [place], [place], [address], [place]. tel:[phone] Referring Provider: Shahida Sutton CNP, [address] [place], [address]. tel:[phone] [facility], [address], [address], [place], [address], [place] tel:[phone] [facility] back pain (chief complaint) Radiculopathy, lumbar regionRadiculopath y, lumbar region Mar-0 3 [facility]. [address], [place], [place], [address], [place]. tel:[phone] Referring Provider: Shahida Sutton CNP, [address] [place], [address]. tel:[phone] [facility], [address], [place], [place], [address], [place] tel:[phone] [facility] No Information 3 Davon Lehman. [address], [place], [address], [place]. tel:[phone] Referring Provider: Dominik Mays, [address], [place], [address]. tel:[phone] [facility], [address], [place], [place], [address], [place] tel:[phone] [facility] No Information 3 Davon Lehman. [address], [place], [address], [place]. tel:[phone] Referring Provider: Dominik Mays, [address], [place], [address]. tel:[phone] [facility], [address], [address], [place], [address], [place] tel:[phone] [facility] left hip pain (chief complaint) Pain in left hipNeuralgia and neuritis, unspecifiedPain in left hip 3 [facility]. [address], [place], [place], [address], [place]. tel:[phone] Referring Provider: Shahida Sutton CNP, [address] [place], [address]. tel:[phone] [facility], [address], [place], [place], [address], [place] tel:[phone] [facility] No Information 3 Kenneth Vance. [address], [address], [place], [place], [address], [place]. tel:[phone] Referring Provider: Rajiv Cooper, [address], [place], [address] . tel:[phone] [facility], [address], [place], [address], [place] tel:[phone] [facility] No Information 3 Kenneth Vance. [address], [address], [place], [place], [address], [place]. tel:[phone] Referring Provider: Shahida Sutton CNP, [address] [place], [address]. tel:[phone] Est Pt Eval 25 Min Telehealth [facility], [address], [place], [place], [address], [place] tel:[phone] [facility] back pain (chief complaint) Body mass index (BMI) 35.0-35.9, adultRadiculopathy , lumbar regionPain in left hipSacroiliitis Fe 3 Ketola Utah. [address], [address], [place], [address], [place]. tel:[phone] Referring Provider: Shahida Sutton CNP, [address] [place], [address]. tel:[phone] Est Pt Eval 25 Min Telehealth [facility], [address], [place], [place], [address], [place] tel:[phone] [facility] back pain (chief complaint) Radiculopathy, lumbar regionSacroiliitis Pain in left hipPain in right shoulder 3 Ketola Aydee. [address], [address], [place], [address], [place]. tel:[phone] Referring Provider: Shahida Sutton CNP, [address] [place], [address]. tel:[phone] Est Pt Eval 25 Min Telehealth [facility], [address], [place], [place], [address], [place] tel:[phone] [facility] left hip pain (chief complaint) right shoulder pain (chief complaint) Radiculopathy, lumbar regionSacroiliitis Pain in left hipPain in right shoulderBody mass index (BMI) 35.0-35.9, adult 2 Ketola Utah. [address], [address], [place], [address], [place]. tel:[phone] Referring Provider: Shahida Sutton CNP, [address] [place], [address]. tel:[phone] Est Pt Eval 25 Min [facility], [address], [place], [place], [address], [place] tel:[phone] [facility] back pain (chief complaint) Pain in right shoulderPain in left hipRadiculopathy, lumbar regionSacroiliitis Body mass index (BMI) 35.0-35.9, adult 2 Ketola Utah. [address], [place], [place], [address], [place]. tel:[phone] Referring Provider: Shahida Sutton CNP, [address] [place], [address]. tel:[phone] [facility], [address], [address], [place], [address], [place] tel:[phone] [facility] right shoulder pain (chief complaint) Pain in right shoulderNeuralgia and neuritis, unspecifiedPain in right shoulderNeuralgia and neuritis, unspecified 2 [facility]. [address], [place], [place], [address], [place]. tel:[phone] Referring Provider: Dominik Mays, [address], [place], [address]. tel:[phone] [facility], [address], [place], [place], [address], [place] tel:[phone] [facility] No Information 2 Ketola Utah. [address], [place], [place], [address], [place]. tel:[phone] Referring Provider: Shahida Sutton CNP, [address] [place], [address]. tel:[phone] [facility], [address], [place], [place], [address], [place] tel:[phone] [facility] No Information 2 Ketola Utah. [address], [place], [place], [address], [place]. tel:[phone] Referring Provider: Shahida Sutton CNP, [address] [place], [address]. tel:[phone] [facility], [facility], [address], [place], [place], [address], [place] tel:[phone] [facility] No Information 2 Davon Lehman. [address], [place], [address], [place]. tel:[phone] Referring Provider: Dominik Mays, [address], [place], [address]. tel:[phone] Est Pt Eval 25 Min Telehealth [facility], [facility], [address], [place], [place], [address], [place] tel:[phone] [facility] left hip pain (chief complaint) Pain in left hipRadiculopathy, lumbar regionPain in right shoulderBody mass index (BMI) 35.0-35.9, adult Oct- 2 Adryanhannahmaria ines Espinosan. [address], [address], [place], [address], [place]. tel:[phone] Referring Provider: Shahida Sutton CNP, [address] [place], [address]. tel:[phone] Est Pt Eval 25 Min Telehealth [facility], [facility], [address], [place], [place], [address], [place] tel:[phone] [facility] right shoulder pain (chief complaint) back pain (chief complaint) Body mass index (BMI) 35.0-35.9, adultRadiculopathy , lumbar regionPain in left hipPain in right shoulder Sep-0 2 She Qiying. [address], [address], [place], [address], [place]. tel:[phone] Referring Provider: Shahida Sutton CNP, [address] [place], [address]. tel:[phone] RE[facility] Valentin, [address], [place], [place], [address], [place] tel:[phone] [facility] Radiculopathy, lumbar regionPain in left hip 2 Isaac Torres. [address], [facility] , [place], [address], [place]. tel:[phone] Referring Provider: Shahida Sutton CNP, [address] [place], [address]. tel:[phone] [facility], [address], [place], [place], [address], [place] tel:[phone] [facility] Radiculopathy, lumbar regionPain in left hip 2 Boise Nataliia. [address], [place], [address], [place]. tel:[phone] Referring Provider: Shahida Sutton CNP, [address] [place], [address]. tel:[phone] Est Pt Eval 25 Min [facility], [address], [place], [place], [address], [place] tel:[phone] [facility] back pain (chief complaint) bilateral shoulder pain (chief complaint) Intervertebral disc disorders w radiculopathy, lumbar regionPain in left hipBody mass index (BMI) 35.0-35.9, adult Oct- 2 She Qiying. [address], [place], [address], [place]. tel:[phone] Referring Provider: Shahida Sutton CNP, [address] [place], [address]. tel:[phone] [facility], [address], [place], [address], [place] tel:[phone] [facility] No Information 2 Stacie Vaughn. [address], [place], [address], [place]. tel:[phone] Referring Provider: Shahida Sutton CNP, [address] [place] [address], [address]. tel:[phone] Psychotherap y, 30 minutes with patient Telephone Only [facility], [address] [facility] [address], [place], [address], [place] tel:[phone] [facility] Pain disorder with related psychological factorsMajor depressive disorder, recurrent, mild 2 Jesus Sanders. [address] , [address], [place], [address], [place]. tel:[phone] Referring Provider: Shahida Sutton CNP, [address] [place], [address]. tel:[phone] [facility], [address], [place], [address], [place] tel:[phone] [facility] No Information 2 Adryan Louis. [address] , [address], [place], [address], [place]. tel:[phone] Referring Provider: Shahida Sutton CNP, [address] [place], [address]. tel:[phone] Est Pt Eval 25 Min Telehealth RE[facility]IER [facility], [address], [place], [place], [address], [place] tel:[phone] [facility] left hip pain (chief complaint) Intervertebral disc disorders w radiculopathy, lumbar regionOsteoarthrit is of hip, unspecifiedPain in left hipBody mass index (BMI) 37.0-37.9, adult 2 Maria Isabel Al. [address], [place], [address], [place]. tel:[phone] Referring Provider: Shahida Sutton CNP, [address] [place], [address]. tel:[phone] Psychotherap y, 30 minutes with patient [facility], [address] [facility] [address], [place], [place], [address], [place] tel:[phone] [facility] Pain disorder with related psychological factors 2 Jesus Sanders. [address] [facility], [address], [place], [address], [place]. tel:[phone] Referring Provider: Shahida Sutton CNP, [address] [place], [address]. tel:[phone] Est Pt Eval 25 Min Telehealth [facility], [address], [place], [place], [address], [place] tel:[phone] [facility] back pain (chief complaint) Intervertebral disc disorders w radiculopathy, lumbar regionPain in left hipPain in left legOsteoarthritis of hip, unspecified 2 Maria Isabel Al. [address], [place], [address], [place]. tel:[phone] Referring Provider: Shahida Sutton CNP, [address] [place], [address]. tel:[phone] Psychotherap y, 30 minutes with patient [facility], [address], [place], [place], [address], [place] tel:[phone] [facility] Pain disorder with related psychological factorsMajor depressive disorder, recurrent, mild Aug- 2 Jesus Sanders. [address], [address], [place], [address], [place]. tel:[phone] Referring Provider: Shahida Sutton CNP, [address] [place], [address]. tel:[phone] Est Pt Eval 25 Min [facility], [address] [facility], [place], [place], [address], [place] tel:[phone] [facility] back pain (chief complaint) Other intervertebral disc degeneration, lumbar regionPain in left hipBody mass index (BMI) 37.0-37.9, adult 2 She Qiying. [address], [address], [place], [address], [place]. tel:[phone] Referring Provider: Shahida Sutton CNP, [address] [place], [address]. tel:[phone] [facility], [address], [place], [place], [address], [place] tel:[phone] [facility] No Information 2 She Qiying. [address], [address], [place], [address], [place]. tel:[phone] Referring Provider: Shahida Sutton CNP, [address] [place], [address]. tel:[phone] Psychotherap y, 30 minutes with patient [facility] Valent[facility], [address], [place], [place], [address], [place] tel:[phone] [facility] Pain disorder with related psychological factorsMajor depressive disorder, recurrent, mild 2 Jesus Sanders. [address] , [address], [place], [address], [place]. tel:[phone] Referring Provider: Shahida Sutton CNP, [address] [place], [address]. tel:[phone] [facility], [address], [place], [address], [place] tel:[phone] [facility] No Information 2 Stacie Vaughn. [address] , [address], [place], [address], [place]. tel:[phone] Referring Provider: Shahida Sutton CNP, [address] [place], [address]. tel:[phone] [facility], [address] [facility] [address], [place], [address], [place] tel:[phone] [facility] No Information 2 Xin Quinones. [address], [place], [address], [place]. tel:[phone] Referring Provider: Shahida Sutton CNP, [address] [place], [address]. tel:[phone] Psychiatric Diagnostic Evaluation [facility], [address], [place], [address], [place] tel:[phone] [facility] Pain disorder with related psychological factorsMajor depressive disorder, recurrent, moderate Jun- 2 Jesus Sanders. [address] , [address], [place], [address], [place]. tel:[phone] Referring Provider: Shahida Sutton CNP, [address] [place], [address]. tel:[phone] Est Pt Eval 25 Min Telehealth [facility], [address], [place], [place], [address], [place] tel:[phone] [facility] back pain (chief complaint) Spondyls w/o myelopathy or radiculopathy, lumbosacr regionPain in left hipLong term (current) use of opiate analgesicBody mass index (BMI) 37.0-37.9, adult Apr-0 - 2 She Qiying. [address], [place], [address], [place]. tel:[phone] Referring Provider: Shahida Sutton CNP, [address] [place], [address]. tel:[phone] Est Pt Eval 25 Min [facility], [address], [place], [place], [address], [place] tel:[phone] [facility] back pain (chief complaint) Spondyls w/o myelopathy or radiculopathy, lumbosacr regionPain in left hipPain in left legLong term (current) use of opiate analgesicBody mass index (BMI) 37.0-37.9, adult Mar-0 2 She Qiying. [address], [address], [place], [address], [place]. tel:[phone] Referring Provider: Shahida Sutton CNP, [address] [place], [address]. tel:[phone] Est Pt Eval 25 Min [facility], [address], [place], [place], [address], [place] tel:[phone] [facility] back pain (chief complaint) Intervertebral disc disorders w radiculopathy, lumbar regionSpondyls w/o myelopathy or radiculopathy, lumbosacr regionPain in left hipBody mass index (BMI) 37.0-37.9, adult Fe- 2 Roly Velazquez. [address], [address], [place], [address], [place]. tel:[phone] Referring Provider: Shahida Sutton CNP, [address] [place], [address]. tel:[phone] Est Pt Eval 25 Min [facility], [facility], [address], [place], [place], [address], [place] tel:[phone] [facility] back pain (chief complaint) Pain in left hipLong term (current) use of opiate analgesicSpondyls w/o myelopathy or radiculopathy, lumbosacr region 1 She Qiying. [address], [place], [address], [place]. tel:[phone] Referring Provider: Shahida Sutton CNP, [address] [place], [address]. tel:[phone] [facility], [address], [place], [place], [address], [place] tel:[phone] [facility] No Information 1 She Qiying. [address], [place], [address], [place]. tel:[phone] Referring Provider: Shahida Sutton CNP, [address] [place], [address]. tel:[phone] [facility], [address], [place], [place], [address], [place] tel:[phone] [facility] No Information 1 Xin Quinones. [address], [place], [address], [place]. tel:[phone] Referring Provider: Joni Calderon, [address], [place], [address]. tel:[phone] [facility], [address], [place], [address], [place] tel:[phone] [facility] back pain (chief complaint) left leg pain (chief complaint) left hip pain (chief complaint) Radiculopathy, lumbar regionRadiculopath y, lumbar region 1 [facility]. [address], [place], [place], [address], [place]. tel:[phone] Referring Provider: Joni Calderon, [address], [place], [address]. tel:[phone] Est Pt Eval 25 Min [facility], [address], [place], [place], [address], [place] tel:[phone] [facility] back pain (chief complaint) Pain in left hipRadiculopathy, lumbar region 1 She Qiying. [address], [place], [address], [place]. tel:[phone] Referring Provider: Shahida Sutton WINCH OPERATOR, [address] [facility], [place], [address]. tel:[phone] Est Pt Eval 25 Min [facility], [address], [place], [place], [address], [place] tel:[phone] [facility] back pain (chief complaint) right shoulder pain (chief complaint) Intervertebral disc disorders w radiculopathy, lumbar regionPain in right shoulder 1 She Qiying. [address], [place], [address], [place]. tel:[phone] Referring Provider: Shahida Sutton CNP, [address] [place], [address]. tel:[phone] Est Pt Eval 25 Min Telehealth [facility], [address] [facility] [address], [place], [address], [place] tel:[phone] [facility] right shoulder pain (chief complaint) Pain in right shoulderPain in right armCervicalgiaOthe r intervertebral disc degeneration, lumbar region 1 Gianluca Hsu. [address], [place], [address], [place]. tel:[phone] Referring Provider: Shahida Sutton CNP, [address] [place], [address]. tel:[phone] [facility], [address], [facility] [address], [place], [address], [place] tel:[phone] [facility] No Information Sep-3 1 Stayner Joni. [address] [facility] [address], [place], [address], [place]. tel:[phone] Referring Provider: Shahida Sutton CNP, [address] [place], [address]. tel:[phone] [facility], [address], [place], [place], [address], [place] tel:[phone] [facility] No Information Sep-3 1 Stayner Joni. [address] [facility] [address], [place], [address], [place]. tel:[phone] Referring Provider: Shahida Sutton CNP, [address] [place], [address]. tel:[phone] Est Pt Eval 25 Min [facility], [address], [place], [place], [address], [place] tel:[phone] [facility] back pain (chief complaint) right shoulder pain (chief complaint) Spondylosis w/o myelopathy or radiculopathy, lumbar regionPain in left legPain in right shoulder Nov- 1 Gianluca Hsu. [address], [place], [address], [place]. tel:[phone] Referring Provider: Shahida Sutton CNP, [address] [place], [address]. tel:[phone] Est Pt Eval 25 Min [facility], [address], [place], [place], [address], [place] tel:[phone] [facility] back pain (chief complaint) Low back painPain in left hipPain in right shoulder 1 Machoka Orina. [address], [place], [address], [place]. tel:[phone] Referring Provider: Shahida Sutton CNP, [address] [place], [address]. tel:[phone] [facility], [address], [place], [place], [address], [place] tel:[phone] [facility] No Information 1 Machoka Orina. [address], [place], [address], [place]. tel:[phone] Referring Provider: Shahida Sutton CNP, [address] [place], [address]. tel:[phone] Est Pt Eval 25 Min [facility], [address], [place], [place], [address], [place] tel:[phone] [facility] back pain (chief complaint) Other intervertebral disc degeneration, lumbar region 1 Gianluca Hsu. [address], [place], [address], [place]. tel:[phone] Referring Provider: Shahida Sutton [facility], [address] [facility], [place], [address]. tel:[phone] [facility], [address] [facility], [address], [place], [address], [place] tel:[phone] [facility] back pain (chief complaint) Sacroiliitis, not elsewhere classifiedSacroili itis, not elsewhere classified 1 [facility]. [address] [facility] [address], [place], [place], [address], [place]. tel:[phone] Referring Provider: Bruce Nam, [address], [place], [address] . tel:[phone] [facility], [address], [place], [place], [address], [place] tel:[phone] [facility] No Information 1 Maria Isabel Barrera. [address], [place], [place], [address], [place]. tel:[phone] Referring Provider: Bruce Nam, [address], [place], [address] . tel:[phone] [facility], [address], [place], [address], [place] tel:[phone] [facility] No Information 1 Kenneth Vance. [address] [facility] [address], [place], [place], [address], [place]. tel:[phone] Referring Provider: Shahida Sutton CNP, [address] [place], [address]. tel:[phone] [facility], [address], [place], [place], [address], [place] tel:[phone] [facility] No Information 1 Kenneth Vance. [address] [facility] [address], [place], [place], [address], [place]. tel:[phone] Referring Provider: Shahida Sutton CNP, [address] [place], [address]. tel:[phone] Est Pt Eval 25 Min Telehealth [facility], [address] [facility] [address], [place], [place], [address], [place] tel:[phone] [facility] back pain (chief complaint) Intervertebral disc disorders w radiculopathy, lumbar region 1 Gianluca Hsu. [address] [facility] [address], [place], [address], [place]. tel:[phone] Referring Provider: Shahida Sutton CNP, [address] [place], [address]. tel:[phone] [facility], [address] [facility], [address], [place], [address], [place] tel:[phone] [facility] back pain (chief complaint) Pain in right hipPain in left hipPain in right hipPain in left hip 1 [facility]. [address] [facility] [address], [place], [place], [address], [place]. tel:[phone] Referring Provider: Shahida Sutotn CNP, [address] [place], [address]. tel:[phone] [facility], [facility], [address], [place], [place], [address], [place] tel:[phone] [facility] No Information 1 Xin Quinones. [address], [place], [address], [place]. tel:[phone] Referring Provider: Joni Lauren S, [address], [place], [address]. tel:[phone] Est Pt Eval 25 Min [facility], [facility], [address], [place], [place], [address], [place] tel:[phone] [facility] back pain (chief complaint) Spondylosis w/o myelopathy or radiculopathy, lumbar regionLong term (current) use of opiate analgesicPain in left hip 1 Gianluca Hsu. [address], [place], [address], [place]. tel:[phone] Referring Provider: Shahida Sutton CNP, [address] [place], [address]. tel:[phone] [facility], [facility], [address], [place], [place], [address], [place] tel:[phone] [facility] No Information 1 Kenneth Vance. [address], [place], [place], [address], [place]. tel:[phone] Referring Provider: Shahida Sutton CNP, [address] [place], [address]. tel:[phone] Est Pt Eval 25 Min Telehealth [facility], [facility], [address], [place], [place], [address], [place] tel:[phone] [facility] back pain (chief complaint) Low back painIntervertebral disc disorders w radiculopathy, lumbar regionRadiculopath y, lumbar regionSpinal stenosis, lumbar region with neurogenic claudication 1 Moualee Paulette. [address], [place], [address], [place]. tel:[phone] Referring Provider: Shahida Sutton CNP, [address] [place], [address]. tel:[phone] Est Pt Eval 25 Min [facility], [facility], [address], [place], [place], [address], [place] tel:[phone] [facility] back pain (chief complaint) Low back painIntervertebral disc disorders w radiculopathy, lumbar regionRadiculopath y, lumbar region 1 Moualee Paulette. [address], [place], [address], [place]. tel:[phone] Referring Provider: Shahida Sutton CNP, [address] [place], [address]. tel:[phone] [facility], [address], [place], [place], [address], [place] tel:[phone] [facility] No Information 1 Moualee Paulette. [address], [place], [address], [place]. tel:[phone] Referring Provider: Shahida Sutton CNP, [address] [place], [address]. tel:[phone] [facility], [facility], [address], [place], [place], [address], [place] tel:[phone] [facility] No Information 1 Xin Quinones. [address], [place], [address], [place]. tel:[phone] Referring Provider: Shahida Sutton CNP, [address] [place], [address]. tel:[phone] [facility], [address], [place], [place], [address], [place] tel:[phone] [facility] No Information May- 1 Xin Quinones. [address], [place], [address], [place]. tel:[phone] Referring Provider: Shahida Sutton CNP, [address] [place], [address]. tel:[phone] Est Pt Eval 25 Min Telehealth [facility], [address], [place], [place], [address], [place] tel:[phone] [facility] back pain (chief complaint) Low back painRadiculopathy, lumbar regionSpinal stenosis, lumbar region with neurogenic claudication 1 Chadwick Mayo. [address], [place], [address], [place]. tel:[phone] Referring Provider: Shahida Sutton CNP, [address] [place], [address]. tel:[phone] [facility], [address], [place], [address], [place] tel:[phone] [facility] back pain (chief complaint) Spinal stenosis, lumbar region with neurogenic claudicationSpondy losis w/o myelopathy of lumbar regionSpondylosis w/o myelopathy or radiculopathy, lumbar regionSpondyls w/o myelopathy or radiculopathy, lumbosacr region May- 1 [facility]. [address], [place], [place], [address], [place]. tel:[phone] Referring Provider: Shahida Sutton CNP, [address] [place], [address]. tel:[phone] [facility], [address], [place], [place], [address], [place] tel:[phone] [facility] No Information 1 Xin Quinones. [address], [place], [address], [place]. tel:[phone] Referring Provider: Joni Calderon, [address], [place], [address]. tel:[phone] Psychotherap y, 30 minutes with patient [facility], [address], [place], [place], [address], [place] tel:[phone] [facility] Pain disorder with related psychological factorsMajor depressive disorder, recurrent, mild 1 Jesus Sanders. [address], [place], [address], [place]. tel:[phone] Referring Provider: Shahida Sutton CNP, [address] [place], [address]. tel:[phone] Psychotherap y, 30 minutes with patient [facility], [address], [place], [place], [address], [place] tel:[phone] [facility] Pain disorder with related psychological factorsMajor depressive disorder, recurrent, mild 1 Jesus Sanders. [address], [address], [place], [address], [place]. tel:[phone] Referring Provider: Shahida Sutton CNP, [address] [place], [address]. tel:[phone] Est Pt Eval 25 Min Telehealth [facility], [address], [place], [place], [address], [place] tel:[phone] [facility] back pain (chief complaint) Intervertebral disc disorders w radiculopathy, lumbar regionLow back painPain in right shoulder 1 Keyshawn Bazzi. [address], [place], [address], [place]. tel:[phone] Referring Provider: Shahida Sutton CNP, [address] [place], [address]. tel:[phone] Psychotherap y, 30 minutes with patient [facility], [address], [place], [place], [address], [place] tel:[phone] [facility] Pain disorder with related psychological factorsMajor depressive disorder, recurrent, mild 1 Jesus Sanders. [address] [facility], [address], [place], [address], [place]. tel:[phone] Referring Provider: Shahida Sutton CNP, [address] [place], [address]. tel:[phone] Est Pt Eval 25 Min Telehealth [facility], [address], [place], [place], [address], [place] tel:[phone] [facility] back pain (chief complaint) Radiculopathy, lumbar regionSpondylosis w/o myelopathy of lumbar regionLow back pain 1 Chadwick Mayo. [address], [place], [address], [place]. tel:[phone] Referring Provider: Shahida Sutton CNP, [address] [place], [address]. tel:[phone] Psychotherap y, 30 minutes with patient MITZY Valentin, [address] [facility] [address], [place], [place], [address], [place] tel:[phone] [facility] Pain disorder with related psychological factors 1 Jesus Sanders. [address] [facility], [address], [place], [address], [place]. tel:[phone] Referring Provider: Shahida Sutton CNP, [address] [place], [address]. tel:[phone] [facility], [address] [facility], [place], [address], [place] tel:[phone] [facility] Radiculopathy, lumbar region 1 Mnudo Katz. [address] [place], [address], [place]. tel:[phone] Referring Provider: Shahida Sutton CNP, [address] [place], [address]. tel:[phone] [facility], [address] [facility], [facility] [address], [place], [address], [place] tel:[phone] [facility] back pain (chief complaint) Spondylosis w/o myelopathy of lumbar regionRadiculopath y, lumbar regionIntervertebr al disc disorders with radiculopathy, lumbar regionOther intervertebral disc degeneration, lumbar regionRadiculopath y, lumbar regionIntervertebr al disc disorders w radiculopathy, lumbar regionOther intervertebral disc degeneration, lumbar region 1 [facility]. [address] [facility] [address], [place], [address], [place]. tel:[phone] Referring Provider: Shahida Sutton CNP, [address] [place], [address]. tel:[phone] [facility], [address], [place], [place], [address], [place] tel:[phone] [facility] No Information 1 Xin Quinones. [address] [facility] [address], [place], [address], [place]. tel:[phone] Referring Provider: Joni Calderon, [address] [facility] [address], [place], [address]. tel:[phone] Psychotherap y, 30 minutes with patient [facility], [address], [place], [place], [address], [place] tel:[phone] [facility] Pain disorder with related psychological factorsMajor depressive disorder, recurrent, mild 0 Jesus Sanders. [address] [facility], [address], [address], [place]. tel:[phone] Referring Provider: Shahida Sutton CNP, [address] [place], [address]. tel:[phone] Est Pt Eval 15 Min Telehealth [facility], [address], [place], [place], [address], [place] tel:[phone] [facility] back pain (chief complaint) Low back painRadiculopathy, lumbar regionLong term (current) use of opiate analgesicOther intervertebral disc degeneration, lumbar regionPain in right shoulder 0 Maria Isabel Al. [address] [facility] [address], [place], [address], [place]. tel:[phone] Referring Provider: Shahida Sutton CNP, [address] [place], [address]. tel:[phone] [facility], [address], [place], [place], [address], [place] tel:[phone] [facility] No Information 0 Bobbyner Joni. [address], [place], [address], [place]. tel:[phone] Referring Provider: Shahida Sutton CNP, [address] [place] [address], [address]. tel:[phone] REINIER [facility], [address], [place], [address], [place] tel:[phone] [facility] No Information 0 Isaac Torres. [address] [facility] [address], [facility] , [place], [address], [place]. tel:[phone] Referring Provider: Shahida Sutton CNP, [address] [place] [address], [address]. tel:[phone] Psychotherap y, 45 minutes with patient [facility], [address], [place], [place], [address], [place] tel:[phone] [facility] Pain disorder with related psychological factorsMajor depressive disorder, recurrent, mild Dec- 0-202 0 Jesus Sanders. [address], [place], [address], [place]. tel:[phone] Referring Provider: Shahida Sutton CNP, [address] [place], [address]. tel:[phone] Psychotherap y, 30 minutes with patient [facility], [address], [place], [place], [address], [place] tel:[phone] [facility] Pain disorder with related psychological factorsMajor depressive disorder, recurrent, moderate Dec-0 2-202 0 Jesus Sanders. [address], [place], [address], [place]. tel:[phone] Referring Provider: Shahida Sutton CNP, [address] [place], [address]. tel:[phone] Psychotherap y, 30 minutes with patient REINIER Valentin, [address] [facility] [address], [place], [place], [address], [place] tel:[phone] [facility] Pain disorder with related psychological factorsMajor depressive disorder, recurrent, moderate 0 Jesus Sanders. [address] [facility], [address], [place], [address], [place]. tel:[phone] Referring Provider: Shahida Sutton CNP, [address] [place], [address]. tel:[phone] Est Pt Eval 15 Min [facility], [address], [address], [place] tel:[phone] [facility] back pain (chief complaint) Intervertebral disc disorders w radiculopathy, lumbar regionLong term (current) use of opiate analgesicLow back painOther intervertebral disc degeneration, lumbar region 0 Keyshawn Bazzi. [address] [facility] [address], [place], [address], [place]. tel:[phone] Referring Provider: Shahida Sutton CNP, [address] [place], [address]. tel:[phone] [facility], [address] [facility] [address], [place], [address], [place] tel:[phone] [facility] No Information 0 Keyshawn Bazzi. [address] [facility] [address], [place], [address], [place]. tel:[phone] Referring Provider: Shahida Sutton CNP, [address] [place], [address]. tel:[phone] Psychotherap y, 45 minutes with patient REINIER Valentin, [address] [facility] [address], [place], [place], [address], [place] tel:[phone] [facility] Pain disorder with related psychological factorsMajor depressive disorder, recurrent, moderate Jan-03 05- 0 Jesus Sanders. [address] [facility], [address], [place], [address], [place]. tel:[phone] Referring Provider: Shahida Sutton CNP, [address] [place], [address]. tel:[phone] Psychiatric Diagnostic Evaluation [facility], [address], [place], [place], [address], [place] tel:[phone] [facility] Pain disorder with related psychological factorsMajor depressive disorder, recurrent, moderate Jan- 0 Jesus Sanders. [address] [facility], [address], [place], [address], [place]. tel:[phone] Referring Provider: Shahida Sutton CNP, [address] [place], [address]. tel:[phone] Est Pt Eval 15 Min Telehealth [facility], [address], [place], [place], [address], [place] tel:[phone] [facility] back pain (chief complaint) Intervertebral disc disorders w radiculopathy, lumbar regionLow back painOther intervertebral disc degeneration, lumbar regionPain in right shoulderRadiculopa thy, lumbar regionCervicalgia Nov-0 0 German Murphy. [address] [place], [address], [place]. Referring Provider: Shahida Sutton CNP, [address] [place], [address]. tel:[phone] Est Pt Eval 15 Min Telehealth [facility], [address], [place], [place], [address], [place] tel:[phone] [facility] back pain (chief complaint) Intervertebral disc disorders w radiculopathy, lumbar regionOther intervertebral disc degeneration, lumbar regionRadiculopath y, lumbar region 0 German Murphy. [address] [place], [address], [place]. Referring Provider: Shahida Sutton [employer]PERATOR, [address] [facility], [place], [address]. tel:[phone] [facility], [facility], [address], [place], [place], [address], [place] tel:[phone] [facility] No Information 0 Xin Quinones. [address], [place], [address], [place]. tel:[phone] Referring Provider: Joni Calderon, [address], [place], [address]. tel:[phone] [facility], [address], [place], [address], [place] tel:[phone] [facility] back pain (chief complaint) Radiculopathy, lumbar regionIntervertebr al disc disorders with radiculopathy, lumbar regionOther intervertebral disc degeneration, lumbar regionRadiculopath y, lumbar regionIntervertebr al disc disorders w radiculopathy, lumbar regionOther intervertebral disc degeneration, lumbar region 0 [facility]. [address], [place], [place], [address], [place]. tel:[phone] Referring Provider: Joni Calderon, [address], [place], [address]. tel:[phone] Est Pt Eval 25 Min [facility], [address], [place], [place], [address], [place] tel:[phone] [facility] back pain (chief complaint) right neck pain (chief complaint) Low back painOther intervertebral disc degeneration, lumbar regionRadiculopath y, lumbar regionCervicalgiaP ain in right shoulderLong term (current) use of opiate analgesic Sep-2 0 Jasmine Mary. [address] [facility] [address], [place], [address], [place]. tel:[phone] Referring Provider: Shahida Sutton CNP, [address] [place], [address]. tel:[phone] [facility], [address], [place], [place], [id number], [place] tel:[phone] [facility] Radiculopathy, lumbar region Sep-2 0 Isaac Torres. [address], [facility] , [place], [address], [place]. tel:[phone] Referring Provider: Shahida Sutton CNP, [address] [place], [address]. tel:[phone] Est Pt Eval 15 Min Telehealth [facility], [address], [place], [place], [id number], [place] tel:[phone] [facility] back pain (chief complaint) Diabetes insipidusLow back painRadiculopathy, lumbar region Sep-1 0 Collins Sarai. [address], [place], [address], [place]. tel:[phone] Referring Provider: Shahida Sutton CNP, [address] [place], [address]. tel:[phone] [facility], [address], [address], [place], [address], [place] tel:[phone] [facility] back pain (chief complaint) Radiculopathy, lumbar regionOther intervertebral disc degeneration, lumbar regionIntervertebr al disc disorder w/ radiculopathy of lumbar regionRadiculopath y, lumbar regionOther intervertebral disc degeneration, lumbar regionIntervertebr al disc disorders w radiculopathy, lumbar region 0 [facility]. [address], [place], [place], [id number], [place]. tel:[phone] Referring Provider: Shahida Sutton CNP, [address] [place], [address]. tel:[phone] [facility], [facility], [address], [place], [place], [id number], [place] tel:[phone] [facility] No Information 0 Xin Quinones. [address], [place], [address], [place]. tel:[phone] Referring Provider: Joni Calderon, [address], [place], [address]. tel:[phone] Est Pt Eval 15 Min Telehealth [facility], [facility], [address], [place], [place], [id number], [place] tel:[phone] [facility] back pain (chief complaint) Diabetes insipidusLow back painRadiculopathy, lumbar region 0 Collins Moon. [address], [place], [address], [place]. tel:[phone] Referring Provider: Shahida Sutton CNP, [address] [place], [address]. tel:[phone] Est Pt Eval 15 Min Telehealth [facility], [facility], [address], [place], [place], [id number], [place] tel:[phone] [facility] back pain (chief complaint) Diabetes insipidusLow back painRadiculopathy, lumbar region 0 Collins Moon. [address], [place], [address], [place]. tel:[phone] Referring Provider: Shahida Sutton CNP, [address] [place], [address]. tel:[phone] New Pt Eval 45 Min Telehealth [facility], [facility], [address], [place], [id number], [place] tel:[phone] [facility] back pain (chief complaint) Radiculopathy, lumbar regionLow back painDiabetes insipidus 0 Maria Isabel Al. [address], [place], [id number], [place]. tel:[phone] Referring Provider: Shahida Sutton CNP, [address] [place], [address]. tel:[phone] Family History Family Member Type Diagnosis Age At Onset Mother Problem (finding) Arthritis Mother Problem (finding) Liver Disease Mother Problem (finding) Depression Father Problem (finding) Arthritis Father Problem (finding) Heart Disease Father Problem (finding) Cancer Sister Problem (finding) Neurologiv Condition Payers Payer name Insurance type Covered republican ID Luz decker(s) [employer] [id number] Social History Type Description Quantity Date Captured Comments Alcohol Use Details Unknown Caffeine Use Details Unknown Tobacco Use Status No Information Smoking Status Former smoker Sex Male Vital Signs Date / Time: Height Weight BMI Pulse Rate Blood Pressure Temperature Respiratory Rate Body Surface Area Head Circumference Head Circ. Percentile Wt./Rashid. Percentile BMI percentile Pulse Ox Inhaled Ox 1:07 PM 87 /min 118/66 mm[Hg] 1:40 PM 88 /min 118/69 mm[Hg] 93 % Chief Complaint And Reason For Visit From encounter dated '09/20/2023 13:15'. shoulder pain (chief complaint). Description: The pain is located in the right shoulder. The shoulder pain radiates into the right upper back. Reason For Referral Reason For Referral No Information Plan Of Treatment Date Type Action Status Goal Lifestyle educat ion regarding diet completed Goal Lifestyle educat ion regarding diet completed Goal Lifestyle educat ion regarding diet completed Goal Lifestyle educat ion regarding diet completed Goal Lifestyle educat ion regarding diet completed Goal Lifestyle educat ion regarding diet completed Goal Lifestyle educat ion regarding diet completed Goal Lifestyle educat ion regarding diet completed Goal Lifestyle educat ion regarding diet completed Goal Lifestyle educat ion regarding diet completed Goal Lifestyle educat ion regarding diet completed Goal Lifestyle educat ion regarding diet completed Goal Lifestyle educat ion regarding diet completed Goal Lifestyle educat ion regarding diet completed Goal Lifestyle educat ion regarding diet completed Goal Tobacco cessation counseling completed Goal Lifestyle educat ion regarding diet completed Goal Tobacco cessation counseling completed Goal Lifestyle educat ion regarding diet completed Goal Lifestyle educat ion regarding diet completed Referral Ordered: Orthopedic Surgery (related to Pain in left hip) ordered Referral Ordered: Referrals: Orthopedic Surgery. Location: [facility]. Evaluate and treat ordered Referral Ordered: Referrals: Behavioral Health. Evaluate and treat ordered Referral Referred To: nerve block Ordered: nerve block on the left left hip ordered Referral Referred To: suprascapular nerve block Ordered: suprascapular nerve block on the right ordered Referral Referred To: lumbar epidural steroid injection Ordered: lumbar epidural steroid injection L4-5 and L5-S1 ordered Referral Ordered: Obtain - Outside Med Recs: Telehealth Visit -Dr. North ordered Referral Referred To: sacroiliac joint injection Ordered: sacroiliac joint injection on both sides ordered Referral Referred To: sacroiliac joint injection Ordered: sacroiliac joint injection on the left ordered Referral Referred To: bursa joint injection Ordered: bursa joint injection on the left hip ordered Referral Referred To: Physical Therapy Ordered: Physical Therapy ordered Referral Referred To: Physical Therapy Ordered: Physical Therapy. Evaluate and treat ordered Referral Referred To: cervical epidural steroid injection Ordered: cervical epidural steroid injection on the right C5-6 ordered Referral Referred To: lumbar epidural steroid injection Ordered: lumbar epidural steroid injection L3-4 ordered Future Order: Radiology Order CT Scan - Lumbar Spine W/O Contrast ([id number]), Ordered on: Ordered Future Order: Radiology Order X- RAY - Lumbar Spine (AP, Neutral, Lateral Neutral, Flexion, Extension Views) ([id number]), Ordered on: Ordered Future Order: Radiology Order CT Scan - Pelvis W/O Contrast ([id number]), Ordered on: Ordered Future Order: Radiology Order CT Scan - Lumbar Spine W/O Contrast (RADCT05), Ordered on: Ordered Future Order: Radiology Order MR I - Lumbar Spine W/O Contrast ([id number]), Ordered on: Ordered Future Order: Radiology Order X- RAY - Lumbar Spine (AP, Neutral, Lateral Neutral, Flexion, Extension Views) ([id number]), Ordered on: Ordered Future Order: Radiology Order X- RAY - Hip (RADXR08), Ordered on: Ordered Future Order: Radiology Order X- RAY - Lumbar Spine (RADXR02), Ordered on: Ordered Future Order: Radiology Order X- RAY - Flexion/Extension Of Lumbar Spine (RADXR05), Ordered on: Ordered Future Order: Lab Order Point Of Care Testing (with THC) (POCT-THC), Ordered on: Ordered History Of Present Illness Encounter Date Complaint History Of Prese nt Illness shoulder pain The pain is loca faraz in the right shoulder. The shoulder pain radiates into the right upper back. lower back pain The pain is loca faraz in the low back on both sides. The lower back pain radiates into the left leg. The pain pattern also includes the hip. Pain intensity is currently 7/10.The pain is described as aching, dull and sharp. The following activities make the pain worse: physical activity, standing and walking. The following activities make the pain better: sitting. lower back pain The pain is loca faraz in the low back on both sides. The lower back pain radiates into the left hip. Pain intensity is currently 6/10.The pain has been improving . The following activities make the pain better: injection. lower back pain hip pain The pain is loca faraz in the left hip. leg pain The pain is loca faraz in the left leg. shoulder pain The pain is loca faraz in the right shoulder. Additional information: slight pain on left shoulder. lower back pain The pain is loca faraz in the low back on both sides. The pain radiates into the left leg.The lower back pain radiates into the left hip. Pain intensity is currently 7/10.The pain is described as aching and burning. left hip pain (comments) Comment s: He describes his left hip pain as constant. He has been recommended for a L hip replacement. back pain (comments) Comments: Ivette pan finds his low back pain has been increasing. This has been going on for years and is painful. left hip pain Location of pain is left. The patient describes the pain as an ache, burning and sharp. Symptom is aggravated by sitting and standing. Relieving factors include pain meds. back pain Severity level i s 8. Location of pain is lower back. The patient describes the pain as an ache, burning and sharp. Symptoms are aggravated by standing and walking. Symptoms are relieved by pain meds/drugs. bilateral shoulder pain Location : bilateral shoulder. The pain radiates to the neck, right arm. The pain is aching, dull, sharp and stabbing. The pain is aggravated by movement and lifting the arms. The pain is relieved by pain/RX meds, OTC medicines: and topicals. back pain The problem is w orsening. Location of pain is lower back and left sided. Pain is radiated to the left ankle, left calf, left foot, left thigh and left hip. The patient describes the pain as an ache, burning and shooting. Symptoms are aggravated by daily activities, sitting, standing and movement. Symptoms are relieved by over the counter medication, pain meds/drugs and topicals. bilateral shoulder pain (comment s) Comments: Patient is unable to lift right arm above his head due to pain. left hip pain Location of pain is left. There is radiation of pain to the low back and left foot. The patient describes the pain as an ache, burning, sharp and shooting. Symptom is aggravated by sitting and standing. Relieving factors include ice, lying down and heat. left hip pain Location of pain is left. Neck Pain Location of pain is bilateral anterior neck, bilateral lateral neck and bilateral posterior neck. There is radiation of pain to the right shoulder. The patient describes the pain as Aching, Burning and Shooting. Aggravating factors include walking. Relieving factors include narcotic analgesics and lying down. back pain Location of pain is lower back. Pain is radiated to the Left hip. The patient describes the pain as an ache, burning and shooting. Symptoms are aggravated by extension and walking. Symptoms are relieved by lying down and pain meds/drugs. left hip pain (comments) Comment s: Patient reports his left hip pain has worsened so that he has difficulty doing daily activities and working.Patient reports he has to get a heart valve replacement and a biopsy on his kidney. left hip pain Location of pain is left. The patient describes the pain as an ache, sharp and throbbing. Symptom is aggravated by lifting, lying on left side and all hip movement. Relieving factors include heat, menthol gels and medication. Pertinent negatives include fever. left hip pain Location of pain is left. left hip pain The problem is w orsening. Location of pain is left. The patient describes the pain as an ache, shooting, stabbing and throbbing. Symptom is aggravated by sitting and walking daily activities. Relieving factors include pain meds and laying down. back pain Location of pain is lower back. Additional information: L hip pain. back pain Severity level i s 6. Location of pain is lower back and left. Pain is radiated to the left hip. back pain Location of pain is lower back. Pain is radiated to the left hip and left hip. The patient describes the pain as an ache, burning and throbbing. Symptoms are aggravated by sitting, standing and walking. Symptoms are relieved by pain meds/drugs. back pain Location of pain is lower back. Pain is radiated to the left calf, left thigh and Left hip. The patient describes the pain as an ache, numbness, stabbing and throbbing. Symptoms are aggravated by bending, lifting, standing, twisting and walking. Symptoms are relieved by lying down, over the counter medication, pain meds/drugs and rest. left hip pain Location of pain is left. back pain Severity level i s 7. Location of pain is lower back and left. Pain is radiated to the left hip and left leg. left hip pain Severity level i s severe. The problem is worsening. It occurs constantly. Location of pain is left. back pain Location of pain is Left lower back and Left hip. Pain is radiated to the Left leg. The patient describes the pain as an ache, sharp and throbbing. Symptoms are aggravated by sitting, standing and walking. Symptoms are relieved by heat, over the counter medication: ibuprofen and pain meds/drugs. back pain Severity level i s severe. The problem is worsening. It occurs persistently. Location of pain is lower back. back pain Severity level i s severe. The problem is worsening. It occurs persistently. Location of pain is lower back. back pain The problem is s table. It occurs persistently. Location of pain is lower back, legs, neck, Lower Left back and Left Hip and Right Shoulder and Right side of Neck. back pain Severity level i s 8. Location of pain is lower back and left. Pain is radiated to the left hip. back pain bilateral hip pain Location of p ain is bilateral R shoulder. The patient describes the pain as an ache, sharp and throbbing. Symptom is aggravated by sitting and standing. Relieving factors include laying down. back pain Location of pain is lower back. left hip pain Location of pain is left. back pain Location of pain is lower back. Pain is radiated to the left ankle, left calf, left foot and left thigh. The patient describes the pain as burning. back pain Severity level i s 7. Location of pain is lower back. Pain is radiated to the left hip, right shoulder and left leg. The patient describes the pain as burning and intense. Symptoms are aggravated by changing positions and daily activities. Symptoms are relieved by lying down, pain meds/drugs and rest. right shoulder pain Location: ri ght shoulder. left hip pain Location of pain is left. The patient describes the pain as an ache, burning, sharp and shooting. Symptom is aggravated by movement. Relieving factors include heat and pain meds. back pain Location of pain is lower back and Right shoulder and lower left back and lower left hip.The patient describes the pain as an ache, burning, numbness, sharp, shooting, stabbing, throbbing and Tingling. Symptoms are aggravated by bending, daily activities, lifting, pushing, sitting, standing and walking. right shoulder pain Location: ri ght shoulder. left hip pain Severity level i s severe. The problem is showing no change. It occurs constantly. Location of pain is left. There is radiation of pain to the leg. The patient describes the pain as an ache, burning, dull, sharp and throbbing. right shoulder pain It occurs co nstantly. Location: right shoulder. The pain is throbbing. The pain is aggravated by lifting and movement. back pain Location of pain is Left Lower back and Left hip. Pain is radiated to the Both legs.The patient describes the pain as an ache and shooting. Symptoms are aggravated by daily activities. Symptoms are relieved by pain meds/drugs. back pain Location of pain is lower back and left hip. Pain is radiated to the left ankle. bilateral shoulder pain Location : bilateral shoulder. left hip pain Location of pain is left. There is radiation of pain to the Groin area. The patient describes the pain as dull, numbness and sharp. Symptom is aggravated by climbing stairs, descending stairs, pushing, sitting, squatting and standing. Relieving factors include ice, rest and stretching. back pain Location of pain is middle back, lower back, gluteal area, right flank, arms and legs. Symptoms are aggravated by walking. back pain Location of pain is middle back, lower back, gluteal area, right flank, arms and legs.The patient describes the pain as diffuse, discomforting, dull, shooting, stabbing and superficial. Symptoms are aggravated by bending, changing positions, daily activities, standing and twisting. Symptoms are relieved by heat, ice, lying down, pain meds/drugs, physical therapy, spontaneous relief and stretching. back pain Location of pain is lower back. Pain is radiated to the Left hip and Left leg.The patient describes the pain as an ache, burning, sharp, shooting, stabbing and throbbing. Symptoms are aggravated by daily activities and walking. Symptoms are relieved by pain meds/drugs. back pain The problem is w orsening. It occurs persistently. Location of pain is lower back, neck and right shoulder. Pain is radiated to the left hip and left ankle.The patient describes the pain as an ache, burning, shooting, stabbing and throbbing. Symptoms are aggravated by movement. Symptoms are relieved by pain meds/drugs and topical biofreeze. back pain Location of pain is lower back, left hip and left leg and ankle. back pain Location of pain is lower back.The patient describes the pain as an ache, burning, throbbing and spasms. Symptoms are aggravated by standing and walking. Symptoms are relieved by heat, ice and pain meds/drugs. back pain Location of pain is lower back. left leg pain Location: left. left hip pain Location of pain is left. back pain The problem is w orsening. Location of pain is lower back and Left hip. Pain is radiated to the left thigh.The patient describes the pain as an ache, stabbing and throbbing. Symptoms are aggravated by daily activities and walking. Symptoms are relieved by over the counter medication: ibuprofen and pain meds/drugs. back pain The problem is s table. Location of pain is lower back.The patient describes the pain as an ache. Symptoms are aggravated by daily activities, lifting, standing and walking. Symptoms are relieved by heat, ice and pain meds/drugs. right shoulder pain Location: ri ght shoulder. right shoulder pain Location: ri ght shoulder. The pain is sharp and stabbing. The pain is aggravated by movement. The pain is relieved by pain/RX meds. back pain The problem is w orsening. Location of pain is lower back. Pain is radiated to the left calf, left foot and left thigh.The patient describes the pain as an ache, numbness, stabbing and throbbing. Symptoms are aggravated by daily activities. Symptoms are relieved by heat, over the counter medication: ibuprofen and pain meds/drugs. right shoulder pain The problem is worsening. Location: right shoulder. The pain radiates to the right arm. The pain is aching, sharp, throbbing and numbness. The pain is aggravated by lifting, movement and reaching. The pain is relieved by heat, pain/RX meds and OTC medicines: ibuprofen. back pain Location of pain is lower back.There is no radiation of pain. The patient describes the pain as an ache and sharp. Symptoms are aggravated by daily activities, sitting, standing and walking. Symptoms are relieved by heat, ice, pain meds/drugs and sitting. back pain Location of pain is lower back and right side of low back.There is no radiation of pain. The patient describes the pain as an ache, sharp, stabbing and throbbing. Symptoms are aggravated by standing and walking. Symptoms are relieved by injection: epidural injection and pain meds/drugs. back pain Location of pain is lower back. back pain Location of pain is lower back.The patient describes the pain as an ache, sharp and throbbing. Symptoms are aggravated by standing, twisting and walking. Symptoms are relieved by heat, ice, pain meds/drugs and rest. back pain Location of pain is lower back and gluteal area. back pain Severity level i s 4. The problem is stable. It occurs persistently. Location of pain is lower back. Pain is radiated to the bilateral buttocks and bilateral hips sometimes.The patient describes the pain as an ache, burning, deep, dull, sharp, shooting, stabbing and throbbing. Symptoms are aggravated by changing positions, daily activities, lifting, lying/rest, sitting, standing and walking. Symptoms are relieved by movement and pain meds/drugs. back pain Severity level i s 5. The problem is stable. Location of pain is lower back. back pain Severity level i s 5. The problem is stable. It occurs persistently. Location of pain is lower back. back pain The problem is w orsening. Location of pain is lower back. Pain is radiated to the left hip.The patient describes the pain as an ache, burning and stabbing. Symptoms are aggravated by bending, daily activities, lifting, sitting, twisting and walking. back pain Location of pain is lower back. back pain Severity level i s 7. The problem is stable. It occurs persistently. Location of pain is lower back. back pain The problem is i mproving. Location of pain isLocation of pain is lower back and Left hip. lower back and Left hip.The patient describes the pain asThe patient describes the pain as an ache burning, deep, dull, numbness, sharp, shooting, stabbing and throbbing., an ache, burning, deep, dull, numbness, sharp, shooting, stabbing and throbbing. Symptoms are aggravated by Symptoms are aggravated by changing positions daily activities, lifting, lying/rest, sitting, standing and walking., changing positions, daily activities, lifting, lying/rest, sitting, standing and walking. Symptoms are relieved by Symptoms are relieved by movement and pain meds/drugs. movement and pain meds/drugs. back pain Location of pain is lower back. back pain Severity level i s 5. The problem is stable. It occurs persistently. Location of pain is lower back. back pain Severity level i s 5. The problem is fluctuating. It occurs persistently. Location of pain is lower back.The patient describes the pain as an ache, burning, deep, dull, sharp, shooting, stabbing and throbbing. Symptoms are aggravated by changing positions, daily activities, lifting, lying/rest, sitting, standing and walking. Symptoms are relieved by movement and pain meds/drugs. back pain Severity level i s 5. The problem is fluctuating. It occurs persistently. Location of pain is lower back and left hip.The patient describes the pain as an ache, burning, deep, dull, sharp, shooting, stabbing and throbbing. Symptoms are aggravated by changing positions, daily activities, lifting, lying/rest, sitting, standing and walking. Symptoms are relieved by movement and pain meds/drugs. back pain Location of pain is right flank. Pain is radiated to the right hip.The patient describes the pain as an ache, burning, deep, dull, sharp, shooting, stabbing and throbbing. Symptoms are aggravated by changing positions, daily activities, lifting, lying/rest, sitting, standing and walking. Symptoms are relieved by movement and pain meds/drugs. Additional information: right side worse than the left. back pain Location of pain is lower back. back pain The problem is w orsening. It occurs persistently. Location of pain is lower back.The patient describes the pain as an ache, burning, deep, dull, sharp, shooting, stabbing and throbbing. Symptoms are aggravated by bending, changing positions, sitting, standing and walking. right neck pain The location is radiates to right shoulder and bilateral arms. back pain Location of pain is lower back.The patient describes the pain as an ache, burning, deep, dull, sharp, shooting and stabbing. Symptoms are aggravated by changing positions, daily activities, lifting and lying/rest. Symptoms are relieved by movement. back pain Location of pain is lower back. back pain Severity level i s 7. The problem is fluctuating. It occurs persistently. Location of pain is lower back, neck and right shoulder.There is no radiation of pain. The patient describes the pain as piercing, sharp, shooting and stabbing. Symptoms are aggravated by running, sitting, standing, twisting and walking. Symptoms are relieved by pain meds/drugs and rest. back pain Severity level i s 5. The problem is fluctuating. It occurs persistently. Location of pain is lower back. Pain is radiated to the left thigh and right thigh.The patient describes the pain as sharp, shooting and stabbing. Symptoms are aggravated by running, sitting, standing and walking. Symptoms are relieved by pain meds/drugs and rest. back pain Location of pain is lower back. Pain is radiated to the right thigh.The patient describes the pain as an ache, burning, deep, dull, sharp, shooting, stabbing and throbbing. Symptoms are aggravated by changing positions, daily activities, lifting, lying/rest, sitting, standing and walking. Symptoms are relieved by movement and pain meds/drugs. Functional Status Date Functional Assessmen t Pain Score 3/10 Instructions Date Instruction Additional Infor brandon - Follow up as needed Related to Pain in right shoulder - Follow up with [facility] regarding Synvisc Injection for your Left Hip*[place] should call you to schedule, if you do not hear from them for 1 week, call in.- Continue to follow up with orthopedic surgeon regarding potential left hip replacement - Try over the counter Lidocaine patches for your left hip- Try Susannah's Web Addy, or Voltaren Gel for the affected area Related to Pain in left hip - Continue to monito r relief from the transforaminal epidural steroid injection- Ordered Lumbar Epidural Steroid Injection- Ordered updated imaging for Lumbar Spine at [facility] will call you to schedule- Refill and continue Milford 5-325mg up to 4x/day as needed, #120 for 30 days, for fill 09/17/23 do not take Ambien within 4 hours of Milford and Gabapentin- Continue Tizanidine 4mg up to 3x/day as needed, refills in pharmacy- Continue Gabapentin 300mg as prescribed by outside provider- Follow up with Francisco Javier Carlisle CNP 1-2 weeks following imaging, telehealth okay 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, lumbar region - Keep right suprasc apular radiofrequency ablation as scheduled 09/20/23 Related to Primary osteoarthritis of right shoulder Lifestyle education regarding di et Related to Body mass index [BMI] 32.0-32.9, adult - Continue to monito r relief from the transforaminal epidural steroid injection- Refill and continue Milford 5-325mg up to 4x/day as needed, #120 for 30 days, for fill 08/19/23 do not take Ambien within 4 hours of Milford and Gabapentin- Continue Tizanidine 4mg up to 3x/day as needed, refills in pharmacy- Continue Gabapentin 300mg as prescribed by outside provider- Follow up with Francisco Javier Carlisle CNP 1 month, in CLINIC 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, lumbar region - Ordered right supr ascapular radiofrequency ablation today* If you would like sedation, please do not eat or drink for 8 hours prior to procedure and bring a lifter driver* [facility] will call you to schedule, if you do not hear back within a few days please call [phone] Related to Primary osteoarthritis of right shoulder Giving encouragement to exercise Related to Body mass index [BMI] 34.0-34.9, adult - [facility] pressure management Related to Elevated blood-pressure reading without diagnosis of hypertension - Follow up via tele health tomorrow with Francisco Javier to discuss the results of today's injection and for medication refill Related to Radiculopathy, lumbar region - Schedule right sup rascapular radiofrequency ablation if 80% or greater pain relief Related to Pain in right shoulder - Follow up as sched uled for right suprascapular nerve block Related to Primary osteoarthritis of right shoulder - Follow up as sched uled for repeat transforaminal lumbar epidural steroid injection at left L3-4 and L4-5 - Refill and continue Milford 5-325mg up to 4x/day as needed. Refill today do not take Ambien within 4 hours of Milford and Gabapentin- Continue Tizanidine 4mg up to 3x/day as needed. Refill sent today.- Continue Gabapentin 300mg as prescribed by outside provider- Follow up with a nurse practitioner or physician administrative sales assistant in 1 month, in clinic 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, lumbar region - Follow up as sched uled for repeat transforaminal lumbar epidural steroid injection at left L3-4 and L4-5 on 07/11/23Call daily for cancellations - Refill and continue Milford 5-325mg up to 4x/day as needed for fill on 06/19/23 do not take Ambien within 4 hours of Milford and Gabapentin- Continue Tizanidine 4mg up to 3x/day as needed. No refill needed today - Continue Gabapentin 300mg as prescribed by outside provider- Follow up with a nurse practitioner or physician administrative sales assistant in 1 month, telehealth ok 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, lumbar region - Follow up as sched uled for right suprascapular nerve block on 07/25/23 Related to Primary osteoarthritis of right shoulder Giving encouragement to exercise Related to Body mass index [BMI] 34.0-34.9, adult - Ordered right supr ascapular nerve block. If you do not hear from [facility] within a week, reach out to scheduling regarding approval status- Follow up with nurse practitioner in 4 weeks, telehealth ok Related to Primary osteoarthritis of right shoulder - Schedule repeat tr ansforaminal lumbar epidural steroid injection at left L3-4 and L4-5- Refill and continue Milford 5-325mg up to 4x/day as needed for fill on 05/31/23 do not take Ambien within 4 hours of Milford and Gabapentin- Continue Tizanidine 4mg up to 3x/day as needed- Continue Gabapentin 300mg as prescribed by outside provider 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, lumbar region Giving encouragement to exercise Related to Body mass index [BMI] 33.0-33.9, adult - Ordered repeat tra nsforaminal lumbar epidural steroid injection at left L3-4 and L4-5, [facility] will call you to schedule once insurance approves 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, lumbar region - Consider left SI joint injecti on Related to Sacroiliitis - Refill and continu e Milford 5-325mg up to 4x/day as needed with #60 for 15 day supply for fill on 05/03/23 do not take Ambien within 4 hours of Milford and Gabapentin- Continue Tizanidine 4mg up to 3x/day as needed. Refill waiting in pharmacy- Continue Gabapentin 300mg as prescribed by outside provider- Follow up with nurse practitioner as scheduled, [place] [facility] on 05/18/23 Related to Pain in left hip Giving encouragement to exercise Related to Body mass index [BMI] 35.0-35.9, adult -Follow up in clinic to discuss results from today's injection Related to Pain in left hip -Same Related to Osteo arthritis of hip, unspecified - Consider left SI j oint injection pending left hip joint injection Related to Sacroiliitis - Keep left hip join t injection on 04/06/23- Refill and continue Milford 5-325mg up to 4x/day as needed for fill on 03/29/23 do not take Ambien within 4 hours of Mil[place] and Gabapentin- Continue Tizanidine 4mg up to 3x/day as needed. Refill waiting in pharmacy- Continue Gabapentin 300mg as prescribed by outside provider- Keep scheduled CT of pelvis on 04/02/23- Follow up with nurse practitioner or PA in 4 weeks, [place] [facility] Related to Pain in left hip Giving encouragement to exercise Related to Body mass index [BMI] 35.0-35.9, adult - Consider left SI j oint injection pending left hip joint injection- Follow up with Nurse Practitioner after imaging completed, telehealth ok Related to Sacroiliitis - Refill and continu e Milford 5-325mg up to 4x/day as needed for fill on 02/08/23 do not take Ambien within 4 hours of Milford and Gabapentin- Refill and continue Tizanidine 4mg up to 3x/day as needed- Ordered CT of pelvis at [facility]- Ordered left hip joint injection. If you do not hear from [facility] within a week, reach out to scheduling regarding approval status Related to Pain in left hip Lifestyle education regarding di et Related to Body mass index [BMI] 35.0-35.9, adult -Remember to take in sulin as discussed and monitor blood sugars regularlyFollow-up: -Follow up in 2-4 weeks with a Physicians Bail Agent or Nurse Practitioner Related to Pain in left hip - Refill and continu e Milford 5-325mg up to 4x/day as needed for fill on 01/09/23 do not take Ambien within 4 hours of Milford and Gabapentin- Continue Tizanidine 4mg up to 3x/day as needed- Keep left hip nerve block as scheduled on 01/03. 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 Fill on 12/10/22 do not take Ambien within 4 hours of Milford and Gabapentin- Continue Tizanidine 4mg up to 3x/day as needed, No refill needed-Ordered left hip nerve block today. [facility] will call you to schedulemay be able to schedule this on 11/30/22 and reschedule lumbar medial branch block after hip nerve block- Follow up in 4 weeks, telehealth ok Related to Pain in left hip - Complete lumbar me dial branch block as scheduled*if initial injection provides relief, will move forwards with confirmatory injections and radiofrequency ablation Related to Radiculopathy, lumbar region Lifestyle education regarding di et Related to Body mass index [BMI] 36.0-36.9, adult Same plan of care as statement for above diagnosis, no changes Related to Pain in left hip - Complete annual [facility] eval- Consider Intrathecal Pain Pump in the future if the injections are not helpful- Refill and continue Milford 5-325mg up to 4x/day as needed. Fill on 10/10/22 do not take Ambien within 4 hours of Milford and Gabapentin- Continue Tizanidine 4mg up to 3x/day as needed- Complete lumbar medial branch block *if initial injection provides relief, will move forwards with confirmatory injections and radiofrequency ablation*- Follow up in 4 weeks, telehealth ok Related to Radiculopathy, lumbar region Giving encouragement to exercise Related to Body mass index [BMI] 36.0-36.9, adult - Schedule initial l umbar facet joint nerve block at the L2, 3, 4, and 5 levels upon insurance approval, ordered today- Consider lumbar facet joint radiofrequency ablation if the nerve blocks provide you with at least 80% pain relief*If you would like conscious sedation, please make sure to bring a lifter driver with you on the day of your procedure. No food 6-8 hrs prior to injections* The risks and benefits of the procedure will be reviewed with the physician on the day of the procedure. Related to Low back pain Same plan of care as statement for above diagnosis, no changes Related to Pain in left hip - Schedule annual [facility] eval- Can schedule this via Telehealth- Consider Intrathecal Pain Pump in the future if the injections are not helpful- Refill and continue Milford 5-325mg up to 4x/day as needed. Fill on 10/11/22 do not take Ambien within 4 hours of Milford and Gabapentin- Continue Tizanidine 4mg up to 3x/day as needed- Urine provided and Opioid Agreement signed in clinic today- Follow up in 4 weeks, telehealth ok Related to Radiculopathy, lumbar region Lifestyle education regarding di et Related to Body mass index [BMI] 36.0-36.9, adult Hypertension education Related t o Essential (primary) hypertension -Follow up in clinic to discuss results from today's injection Related to Osteoarthritis of hip, unspecified same Related to Pain in left hip - Schedule left hip radiofrequency ablation upon insurance approval, ordered today Related to Pain in left hip Same plan of care as statement for above diagnosis, no changes Related to Sacroiliitis - Consider Intrathec al Pain Pump in the future if the injections are not helpful- Refill and continue Milford 5-325mg up to 4x/day as needed. Fill on 09/11/22 do not take Ambien within 4 hours of Milford and Gabapentin- Continue Tizanidine 4mg up to 3x/day as needed- Follow up in 4 weeks IN CLINIC Related to Radiculopathy, lumbar region Lifestyle education regarding di et Related to Body mass index [BMI] 36.0-36.9, adult same Related to Neura lgia and neuritis, unspecified -If received good bu t short lived pain relief ok to schedule hip RF on the left-If pain relief is long lasting repeat as needed -Follow up in the clinic to discuss the results of today's injection Related to Pain in left hip - Keep scheduled oni t for left hip nerve block on 08/10/22- Consider left hip radiofrequency ablation if the injection provides you with good pain relief Related to Pain in left hip - Consider Intrathec al Pain Pump in the future if the injections are not helpful- Refill and continue Milford 5-325mg up to 4x/day as needed. Fill on 08/12/22 do not take Ambien within 4 hours of Milford and Gabapentin- Continue Tizanidine 4mg up to 3x/day as needed- Follow up in 4 weeks; Telehealth [place] Related to Radiculopathy, lumbar region Same plan of care as statement for above diagnosis, no changes Related to Sacroiliitis Lifestyle education regarding di et Related to Body mass index [BMI] 36.0-36.9, adult -Follow up in the cl inic to discuss the results of today's injection Related to Radiculopathy, lumbar region Follow up for the TF LESI as scheduled on 07/17/2022 Related to Sacroiliitis - Keep scheduled oni t for bilateral Transforaminal Lumbar Epidural Steroid Injection at the L5/S1 level on 07/17- Consider Intrathecal Pain Pump in the future if the injections are not helpful- Refill and continue Milford 5-325mg up to 4x/day as needed. Fill on 07/13/22 do not take Ambien within 4 hours of Milford and Gabapentin- Continue Tizanidine 4mg up to 3x/day as needed-Follow up in 4 weeks; Telehealth [place] Related to Radiculopathy, lumbar region - Keep scheduled oni t for sacroiliac joint injection on 07/15/22 Related to Sacroiliitis - Keep scheduled oni t for left hip nerve block on 08/10/22- Consider left hip radiofrequency ablation if the injection provides you with good pain relief Related to Pain in left hip Lifestyle education regarding di et Related to Body mass index [BMI] 36.0-36.9, adult - Keep scheduled oni t for sacroiliac joint injection on 06/14/22 Related to Sacroiliitis - Schedule bilateral Transforaminal Lumbar Epidural Steroid Injection at the L5/S1 levels- This has been approved and you can schedule anytime- Consider Intrathecal Pain Pump in the future if the injections are not helpful- Refill and continue Milford 5-325mg up to 4x/day as needed. Fill on 06/13/22 do not take Ambien within 4 hours of Milford and Gabapentin- Refill and continue Tizanidine 4mg up to 3x/day as needed, for fill 06/13/22- Urine provided in clinic today-Follow up in 4 weeks; Telehealth [place] Related to Radiculopathy, lumbar region - Keep scheduled oni t for left hip nerve block on 07/04/22- Consider left hip radiofrequency ablation if the injection provides you with good pain relief Related to Pain in left hip Lifestyle education regarding di et Related to Body mass index [BMI] 36.0-36.9, adult - Schedule bilateral Transforaminal Lumbar Epidural Steroid Injection at the L5/S1 levels upon insurance approval, ordered today- Consider Intrathecal Pain Pump in the future if the injections are not helpful- Refill and continue Milford 5-325mg up to 4x/day as needed. Fill on 05/14/22 do not take Ambien within 4 hours of Milford and Gabapentin- Continue Tizanidine 4mg up to 3x/day as needed- Continue Gabapentin as prescribed by outside provider [facility] can take over this script in the future when needed.-Follow up in 4 weeks in CLINIC Related to Radiculopathy, lumbar region - Keep scheduled oni t for sacroiliac joint injection on 06/14/22 Related to Sacroiliitis - Schedule left hip nerve block- Consider left hip radiofrequency ablation if the injection provides you with good pain relief Related to Pain in left hip Lifestyle education regarding di et Related to Body mass index [BMI] 37.0-37.9, adult Mar-04-2023 Follow up [facility] the [facility] in 2-3 weeksConsider TF LESI in 3-4 weeks in 3-4 weeks if pain persists Follow up with physical therapy evaluation and treatment for low back pain, if not already scheduled. Related to Radiculopathy, lumbar region same Related to Neura lgia and neuritis, unspecified Follow up in the [facility] in 2-3 weeks Schedule left hip nerve block if pain persists Related to Pain in left hip - Keep scheduled oni t for Left hip nerve block on 04/22/22- Consider left hip radiofrequency ablation Related to Pain in left hip - consider bilateral sacroiliac joint injection in the future if pain persist after lumbar epidural injection. Related to Sacroiliitis - Consider Intrathec al Pain Pump in the future if the injections are not helpful- Refill and continue Milford 5-325mg up to 4x/day as needed. Fill on 04/14/22 do not take Ambien within 4 hours of Milford and Gabapentin- Refill and continue Tizanidine 4mg up to 3x/day as needed, for fill 04/13/22- Continue Gabapentin as prescribed by outside provider [facility] can take over this script in the future when needed.- Keep scheduled appt for Lumbar Epidural Steroid Injection at L4-5 and L5-S1 on 04/28/22- Consider updating your lumbar imaging if the epidural steroid injection is not helpful-Follow up in 4 weeks in CLINIC Related to Radiculopathy, lumbar region Lifestyle education regarding di et Related to Body mass index [BMI] 35.0-35.9, adult - consider bilateral sacroiliac joint injection in the future if pain persist after lumbar epidural injection. Related to Sacroiliitis - Schedule Left hip nerve block as it has been approved.- Consider left hip radiofrequency ablation Related to Pain in left hip - Schedule right yadira ulder steroid injections upon insurance approval, ordered today-Consider right shoulder suprascapular radiofrequency ablation as next step Related to Pain in right shoulder - Consider Intrathec al Pain Pump in the future if the injections are not helpful- Go to [email or web address] Look under Treatments and find Targeted Drug Delivery to read up on the Intrathecal Pain Pump- Refill and continue Milford 5-325mg up to 4x/day as needed. Fill on 03/15/22 do not take Ambien within 4 hours of Milford and Gabapentin- Continue Tizanidine 4mg up to 3x/day as needed- Continue Gabapentin as prescribed by outside provider [facility] can take over this script in the future when needed.- Keep scheduled appt for Lumbar Epidural Steroid Injection at L4-5 and L5-S1 on 03/23/22-Follow up in 4 weeks; Telehealth [place] Related to Radiculopathy, lumbar region - consider bilateral sacroiliac joint injection in the future if pain persist after lumbar epidural injection. Related to Sacroiliitis - Schedule Left hip nerve block as it has been approved.- Consider left hip radiofrequency ablation- Schedule Right shoulder X-Rays at [facility]- [facility] will reach out to you to schedule this, orders sent today Related to Pain in left hip -Consider right shou lder suprascapular radiofrequency ablation as next step Related to Pain in right shoulder -Refill and continue Milford 5-325mg up to 4x/day as needed. Fill on 02/13/22 do not take Ambien within 4 hours of Milford and Gabapentin- Refill and continue Tizanidine 4mg up to 3x/day as needed, for fill 02/13/22 -Continue Gabapentin as prescribed by outside provider [facility] can take over this script in the future when needed.- Keep scheduled appt for Lumbar Epidural Steroid Injection at L4-5 and L5-S1 on 02/24/22-Follow up in 4 weeks; Telehealth [place] Related to Radiculopathy, lumbar region Lifestyle education regarding di et Related to Body mass index [BMI] 35.0-35.9, adult - consider bilateral sacroiliac joint injection in the future if pain persist after lumbar epidural injection. Related to Sacroiliitis - Left hip nerve blo ck still in process- we will contact you when it is approved.- Consider left hip radiofrequency ablation Related to Pain in left hip -Refill and continue Milford 5-325mg up to 4x/day as needed. Fill on 01/14/22 do not take Ambien within 4 hours of Milford and Gabapentin- Continue Tizanidine 4mg up to 3x/day as needed -Continue Gabapentin as prescribed by outside provider [facility] can take over this script in the future when needed.- Schedule Lumbar Epidural Steroid Injection at L4-5 and L5-S1 as previously ordered-Follow up in 2-3 weeks after injections. Telehealth [place] Related to Radiculopathy, lumbar region -Consider right shou lder suprascapular radiofrequency ablation as next step Related to Pain in right shoulder - [facility] RFA Related to Pain in right shoulder Lifestyle education regarding di et Related to Body mass index [BMI] 35.0-35.9, adult -Schedule right shou lder Suprascapular Nerve Block pending insurance approval-Consider right shoulder suprascapular radiofrequency ablation as next step Related to Pain in right shoulder -Refill and continue Milford 5-325mg up to 4x/day as needed. Fill on 12/15/21 do not take Ambien within 4 hours of Milford and Gabapentin- Continue Tizanidine 4mg up to 3x/day as needed. Refill at pharmacy -Continue Gabapentin as prescribed by outside provider [facility] can take over this script in the future when needed.-Consider Lumbar Epidural Steroid Injection at L4-5 and L5-S1 as previously ordered-Follow up in one month. Telehealth [place] Related to Radiculopathy, lumbar region -Ordered left hip ne rve block todayplan for radiofrequency ablation if successful-Continue following up with orthopedic surgeon regarding left hip surgery Inform [facility] of surgery plan and post-surgery pain management plan Related to Pain in left hip Giving encouragement to exercise Related to Body mass index [BMI] 35.0-35.9, adult -Refill and continue Milford 5-325mg up to 4x/day as needed. Fill on 11/15/21 do not take Ambien within 4 hours of Milford and Gabapentin- Continue Tizanidine 4mg up to 3x/day as needed. Refill at pharmacy -Continue Gabapentin as prescribed by outside provider [facility] can take over this script in the future when needed.-Order Lumbar CT and X-ray at [facility] due to patient's pacemaker is not compatible with MRI machine [facility] Scheduling Phone#:[phone]-Schedule Lumbar Epidural Steroid Injection at L4-5 and L5-S1 as previously ordered-Follow up in one month. Telehealth [place] Related to Radiculopathy, lumbar region -Schedule right shou lder Suprascapular Nerve Block pending insurance approval-Consider right shoulder suprascapular radiofrequency ablation as next step Related to Pain in right shoulder -Continue following up with orthopedic surgeon regarding left hip surgery Inform [facility] of surgery plan and post-surgery pain management plan Related to Pain in left hip Lifestyle education regarding di et Related to Body mass index [BMI] 35.0-35.9, adult -Send records from [facility] -Refill and continue Milford 5-325mg 4x/day as needed, for fill 10/16/21-Refill and continue Tizanidine 4mg up to 3x/day, for fill 10/16/21-Schedule annual physical therapy as previously ordered-Order lumbar epidural steroid injection at L4-5, L5-S1-Order MRI of the lumbar spine at [facility]-Order lateral flexion vs extension x ray of the lumbar spine at [facility]-Order stationary neutral A/P and lateral views x rays at [facility]-Follow up with orthopedic surgeon -Follow up in one month, telehealth OK 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, lumbar region Same plan of care as statement for above diagnosis, no changes Related to Pain in left hip Lifestyle education regarding di et Related to Body mass index [BMI] 35.0-35.9, adult Same plan of care as statement for above diagnosis, no changes Related to Osteoarthritis of hip, unspecified Same plan of care as statement for above diagnosis, no changes Related to Pain in left hip - Refill and continu e Milford 5-325mg 4x/day - Proceed with hip injection as scheduled at [facility]- If the hip injection is unsuccessful, plan for SI joint injection- Schedule annual physical therapy - Have cardiology records faxed to [facility] - Follow up with [facility] in one month IN CLINIC 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 Gricel west to have records from the last year sent to [facility] - Speak with Dr. North regarding SI joint injection, if able to hold blood thinner that would be best- Speak with Dr. 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, lumbar region Order bilateral hip X-ray at [facility] Related to Pain in left hip -Refill and continue Milford 5/325mg up to 3x/day as needed, for fill on 07/13/21-Refill and continue Tizanidine 4mg as prescribed -Schedule sacroiliac joint steroid injection once it is OK with traveling buyer-Schedule annual physical therapy evaluation-Follow up in 4 weeks via telehealth Related to Other intervertebral disc degeneration, lumbar region Lifestyle education regarding di et Related to Body mass index [BMI] 37.0-37.9, adult Same plan of care as statement for above diagnosis, no changes Related to FPC (current) use of opiate analgesic Same plan of care as statement for above diagnosis, no changes Related to Pain in left hip -Continue Warfarin a s prescribed and Tizanidine 4mg as needed-Refill and continue Milford 5-325mg, 3x/day as needed, for fill on 06/05/21-Schedule annual Behavioral Health appt. via telehealth -- ROM warning given-Schedule sacroiliac joint injection when able, okay with traveling buyer -Schedule Physical Therapy in combination with injection/in clinic eval for easier transportation -Follow up IN CLINIC in 4 weeks The risks and benefits of the procedure will be reviewed with the physician on the day of the procedure. 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 can schedule on the same day of injection-Follow up IN CLINIC in 4 weeks The risks and benefits of the procedure will be reviewed with the physician on the day of the procedure. 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, lumbosacr region -Continue Tizanidine as prescribed-Prescribe Milford 5mg up to 3x/day-Discuss possible injections in the future with Closet Organizer -Follow up with provider in 4 weeks via telehealth 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, lumbar region Same plan of care as statement for above diagnosis, no changes Related to Pain in left hip Lifestyle education regarding di et Related to Body mass index [BMI] 37.0-37.9, adult -Prescribed Percocet 5-325mg, 2-3x/day as needed for severe pain, #70 for 30 days, for fill today, 03/03-Continue Belbuca 750mcg as prescribed until out-Prescribed Belbuca 900mcg 2x/day, for fill on 03/19/21-Continue Tizanidine 4mg, 3x/day as needed and prescribed-Ordered left sided Sacroiliac Joint Injection -Refer to Physical Therapy appt., schedule in combination with injection -Follow up in one month The risks and benefits of the procedure will be reviewed with the physician on the day of the procedure. 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 Related to Radiculopathy, lumbar region -Same plan of care a s statement for above diagnosis, no changes-Keep scheduled lumbar epidural steroid injection on 02/22/2021 Related to Radiculopathy, lumbar region -order bilateral hip X-ray at [facility]-Schedule for left hip steroid injection after lumbar epidural steroid injection-Continue Milford 5mg up to 3x/day as needed with #70 for 30 days, for fill today-Continue Belbuca 750mcg 2x/day, has script in pharmacy for fill today-Continue Tizanidine 4mg as prescribed-Schedule physical therapy combine with injections-Follow up 4 weeks in CLINIC Related to Pain in left hip -Schedule Cervical E pidural Steroid injection The risks and benefits of the procedure will be reviewed with the physician on the day of the procedure. 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, lumbar region -Schedule Cervical E pidurals Steroid Injection Related to Cervicalgia Same plan of care as statement for above diagnosis, no changes Related to Pain in right arm -Continue Tizanidine 4mg as prescribed-Refill and continue Belbuca 750mcg as prescribed -Refill and continue Milford 7.3-985no-[facility] to [facility]-Follow up in 2 weeks via telehealth, or in person if needing to discuss work and related paperwork Related to Pain in right shoulder -Reschedule Lumbar E pidural Steroid Injection at L3-4 The risks and benefits of the procedure will be reviewed with the physician on the day of the procedure. 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 Related to Pain in right shoulder Same plan of care as statement for above diagnosis, no changes Related to Pain in left leg -Refill Milford 5-325m g up to 2x/day-Refill Tizanidine 4mg-Refill Belbuca 600mcg 2x/day-Keep scheduled lumbar epidural steroid injection-Schedule a cervical epidural steroid injection-Schedule physical therapy-Follow up in 4 weeks Related to Low back pain Same plan of care as statement for above diagnosis, no changes Related to Pain in right shoulder Same plan of care as statement for above diagnosis, no changes Related to Pain in left hip -Refill Milford 5-325m g, 2x/day, #70 for one month -Prescribe Belbuca 600mcg, 2x/day-Schedule Lumbar epidural Steroid Injection at L3-4 in 2-3 weeks-Follow up IN CLINIC in one month The risks and benefits of the procedure will be reviewed with the physician on the day of the procedure. Related to Other intervertebral disc degeneration, lumbar region Follow up in 2-3 wee ks with repeat TF LESI. 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 Lauren, discuss Minuteman- Follow up in 4 weeks with [facility] Related to Low back pain Same plan of care as statement for above diagnosis, no changes Related to Spinal stenosis, lumbar region with neurogenic claudication Same plan of care as statement for above diagnosis, no changes 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, lumbar region Same plan of care as statement for above diagnosis, no changes Related to Radiculopathy, lumbar region Same plan of care as statement for above diagnosis, no changes Related to Radiculopathy, lumbar region Same plan of care as statement for above diagnosis, no changes 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, lumbar region - Refill Milford 5-325 mg, up to 3x/day for fill 07/02 - Continue Tizanidine- Keep scheduled BL SI joint injection on 07/09- Schedule PT- Order/schedule lumbar flexion/extension Xrays from [facility] - Consider interspinous process spacer pending results from images.- Follow up in 4 weeks with [facility] Related to Low back pain - Obtain LMRI and X- rays as ordered by Dr. Lauren. - Consider interspinous process spacer at L3-L4 pending results from images. Related to Spinal stenosis, lumbar region with neurogenic claudication -Refill Milford 5-325m g, up to 3x/day-Continue Tizanidine-Schedule BL SI joint injection-Schedule PT-Return with [facility] in 4 weeks IN CLINIC Related to Low back pain - Triage will call t omorrow to document pain relief from Lumbar MBB. 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 - Order xray of lumb ar spine in AP and lateral views- Order flexion/extension xray of lumbar spine- Provide literature on Minuteman device*Patient may be a candidate for interspinous process spacer at L3-L4 pending imaging results Related to Spinal stenosis, lumbar region with neurogenic claudication Feb-17-2021 - Refer to orthopedi c surgeon at [facility] for arthroscopic surgery consult and evaluation- Use ibuprofen and Tylenol - Ice and rest shoulder Related to Pain in right shoulder - Refill and continu e Milford 5-325 take 1-3 tablets/day, #70 for 30 days for fill today- Refill and continue Tizanidine as prescribed- Refer to PT for annual assessment - Order/Schedule initial lumbar MBB- Follow up in one month in clinic 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, lumbar region Same plan of care as statement for above diagnosis, no changes Related to Low back pain Same plan of care as statement for above diagnosis, no changes Related to Low back pain Same plan of care as statement for above diagnosis, no changes Related to 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 If successful will proceed with LMBB-C and LRFA. - Schedule to continue with Physical therapy - Refill pain medication today with no changes #70 tablets for a month. - Return to the clinic in 4 weeks. 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
--- OUTSIDE RECORDS SUMMARY | 2023-10-02 15:55 | XMS_ITS | Continuity of Care Document ---
Author Organization [facility] Address [address] [place] [address] Phone Care Team Providers Care Health And Safety Consultant Name Role Phone Will Mauro JANSEN Unavailable [...] by oral route 2 times every day 20 MG - Active hydroxyzine HCl 25 mg tablet [...] Diagnoses Date Provider Providers Copied on Encounter [facility], [address] [place] [address], [id number] , [place] tel:[phone] [facility] No Information 2 Waqar Wade. [address] [place], [place], [id number], [place]. tel:[phone] OFFICE/OUTPA TIENT VISIT, EST [facility], [address] [place] [address], [id number] , [place] tel:[phone] [facility] right shoulder pain (chief complaint) CervicalgiaPain in right shoulderLow back painLong term (current) use of opiate analgesic b 9 Gretta Burnett. [address] [place] [address] [address], [place], [place], [id number], [place]. tel:[phone] Referring Provider: Mauro Coleman [address] [place] [address] [place], [address] . tel:[phone] OFFICE/OUTPA TIENT VISIT, [facility], [address] [place] [address], [id number] , [place] [phone] [facility] right shoulder pain (chief complaint) CervicalgiaPain in right shoulderLong term (current) use of opiate analgesicLow back painEncounter for therapeutic drug level monitoring 9 Gretta Burnett. [address] [facility] [address], [place], [place], [id number], [place]. tel:[phone] Referring Provider: Mauro Coleman, [address] [place] [address] [place], [address] . tel:[phone] [facility], [address] [place] [address], [id number] , [place] [phone] [facility] Myalgia, other site 9 Glynnvern Burnett. [facility] [facility] [address], [place], [place], [id number], [place]. tel:[phone] Referring Provider: Mauro Coleman, [address] [place] [address] [place], [address] . tel:[phone] OFFICE/OUTPA TIENT VISIT, [facility], [address] [place] [address], [id number] , [place] tel:[phone] [facility] right shoulder pain (chief complaint) CervicalgiaPain in right shoulderLong term (current) use of opiate analgesicLow back pain 9 Gretta Burnett. [address] [facility] [address], [place], [place], [id number], [place]. tel:[phone] Referring Provider: Mauro Coleman, [address] [place] [address] [place], [address] . tel:[phone] OFFICE/OUTPA TIENT VISIT, [facility], [address] [place] [address], [id number] , [place] tel:[phone] [facility] [place] right shoulder pain (chief complaint) CervicalgiaPain in right shoulderLong term (current) use of opiate analgesic 9 Glynnvern Burnett. [address], [id number], [place]. [phone] Referring Provider: aMuro Coleman, [address] [place], [place] [address], [address] . tel:[phone] [facility], [address] [place] [address], [id number] , [place] tel:[phone] [facility] No Information 8 Glynn Lex. [address] [place] [address], [id number], [place]. [phone] OFFICE/OUTPA TIENT VISIT, [facility], [address] [place] [address], [id number] , [place] tel: [phone] [facility] right shoulder pain (chief complaint) CervicalgiaPain in right shoulderLong term (current) use of opiate analgesic 8 Glynn Lex. [address] [place] [address] [address] [facility] [address], [place], [id number], [place]. [phone] [facility], [address] [place] [address], [id number] , [place] tel:[phone] [facility] right shoulder pain (chief complaint) No Information 8 Glynn Lex. [address] [facility] [address], [place], [id number], [place]. [phone] OFFICE/OUTPA TIENT VISIT, EST [facility], [address] [place] [address], [id number] , [place] tel: [phone] [facility] neck pain (chief complaint) low back pain (chief complaint) CervicalgiaPain in joint involving shoulder region 4 Cruz Moreira. [address] [place] [address], [id number], . tel:[phone] Referring Provider: Mauro Coleman, [address] [place], [place] [address], [address] . tel:[phone] [facility], [address] [place] [address], [id number] , tel:[phone] [facility] [place] neck pain (chief complaint) back pain (chief complaint) No Information No Information Referring Provider: Mauro Coleman, [address] [place], [place] [address], [address] . tel:[phone] OFFICE/OUTPA TIENT VISIT, [facility], [address] [place] [address], [id number] , tel:[phone] [facility] right neck pain (chief complaint) low back pain (chief complaint) CervicalgiaPain in joint involving shoulder regionLumbago Cruz Moreira. [address] [place] [address], [id number], [place]. tel:[phone] Referring Provider: Mauro Coleman, [address] [place], [place] [address], [address] . tel:[phone] Family History Family Member Type Diagnosis Age At Onset Father Problem (finding) chronic pain Mother Problem (finding) Back surgery Payers Payer name Insurance type Covered constitution party ID Luz decker(s) [facility] [id number] Social History Type Description Quantity Date Captured Comments Sex Male Smoking Status No Information Chief Complaint And Reason For Visit No Information Reason For Referral Reason For Referral No Information Plan Of Treatment Date Type Action Status Future Order: Lab Order COMPLIAN CE DRUG ANALYSIS, URINE, WITH MED REPORT ([id number]), Ordered on: Ordered Future Order: Lab Order COMPLIAN CE DRUG ANALYSIS, URINE, WITH MED REPORT ([id number]), Ordered on: Ordered History Of Present Illness Encounter Date Complaint History Of Prese nt Illness right shoulder pain (comments) A ndrew is here today for a followup and medication refill. He presents without medications today. Reports his pain has worsened since his last OV, noting he recently went to the ER for exacerbated acute back pain. 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 Expresses frustration regarding his worsening pain [...] lying down. right shoulder pain (comments) A madelyn is here for follow-up and medication refills. Patient presents without 10/325mg [place] - due out today. Reports at least [...] lying down. right shoulder pain (comments) A madelyn is here for follow-up and medication refills. Patient has 10/325mg [place] #0 remaining today - due out today. [...] he admits to self escalation of his [place] and took his last dose last night. [...] right shoulder pain.Initial right shoulder injections with [facility] offered significant relief with improvement of ROM. [...] shoulder pain, referred by Dr. 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 His shoulder pain began decades ago and has gradually gotten worse with extensive computer use. He also reports R upper back and neck pain. States his pain has significantly reduced his quality of life. Underwent PT at [facility] in 2017-- not helpful. States he believes PT may have aggravated his pain. Tried right shoulder joint injection. Reports several ESIs--somewhat helpful. Reports most recent REBECCA was done a few months ago, however states he has Diabetes so he needs to be careful with steroid injections. Reports previous MRI at [facility]. Currently managed on hydrocodone 5-325mg QID, amitriptyline 25mg QHS, Gabapentin 300mg TID. Has also trialed Lyrica, Topamax, and Cymbalta. States nothing relieves his R shoulder pain, but the medications are helpful. Mauro is interested in medication management and is open to other tx options. Today he would like [facility] to assume management of pain care. right shoulder pain Duration: ch ronic. Location: right shoulder. right shoulder pain (comments) Taylor ndrew is here for initial consult for right shoulder pain, referred by . His shoulder pain began decades ago and has gradually gotten worse with extensive computer use. He also reports R upper back and neck painUnderwent PT at [facility] in 2017-- not helpful. Tried right shoulder joint injection. Reports previous MRI at [facility]. Has taken gabapentin, lyrica, Topamax, Cymbalta, and amitriptyline for additional pain relief. Mauro is interested in PT and is open to other tx options and would like [facility] to assume management of pain care. Functional Status Date Functional Assessmen t No Information Instructions Date Instruction Additional Infor mation Continue current medication Reviewed medications Reviewed medications New medication is prescribed Depression Screen Oswestry Score Assessments Type Assessment Date No Information Patient Care Teams Name Effective Dates (start - stop) Status Members No Information
== END 2023-10-02 15:40 | disposition home or self-care (01) ==
PROVIDERS: PCP Internal Medicine; Visit Provider Nurse Practitioner Family
DX: L98.418 Non-pressure chronic ulcer of buttock with other specified severity (principal)
CPT/HCPCS: G0463

== ENCOUNTER 2023-11-20 08:18 | Outpatient (CLI) | payer BC, SELFPAY | END 2023-11-20 08:19 | disposition home or self-care (01) | LOC: NFLDREF 08:20 | PROVIDERS: PCP Internal Medicine; Visit Provider Internal Medicine | DX: E11.9 Type 2 diabetes mellitus without complications (principal); D50.9 Iron deficiency anemia, unspecified | CPT/HCPCS: 80048 ==

== ENCOUNTER 2023-12-25 08:07 | Outpatient (CLI) | payer MEDICARE, BC, SELFPAY ==
--- OUTSIDE RECORDS SUMMARY | 2023-12-25 08:10 | XMS_ITS | Clinical Summary ---
Author Organization [facility] Address [address] [place] [address] Care Team Providers Care Buffing 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 Name Role Phone Roopa Almonte MD Unavailable Maryse Burton PA-C Unavailable Roopa Almonte MD Unavailable Griffin Joshi MD Unavailable Paula Reza MD Primary Care Provider Roopa Almonte MD Unavailable Daylin Ludwig Unavailable Marilin Montaño MANAGER STUDENT SERVICES Unavailable Esha Dewitt MD Unavailable [phone] Heather Mosquera MD Unavailable [phone] Esha Dewitt MD Unavailable [phone] Valdo EscamillaC Unavailable [phone] Nohelia Abarca PA-C Unavailable [phone] Heather Mosquera MD Unavailable [phone] Allergies Active Allergy Reactions Criticality Noted Date [...] MG sublingual tabletIndications: Coronary artery disease involving [place] coronary artery of [place] heart without angina pectoris For chest pain [...] AM only 30 mL 1 08/21/2022 Active esomeprazole (NEXIUM) [address] capsuleIndications :Gastroesophageal reflux disease with esophagitis without hemorrhage TAKE 1 CAPSULE(40 MG) BY MOUTH EVERY MORNING BEFORE BREAKFAST AND 30 TO 60 MINUTES BEFORE EATING 90 capsule 09/28/2022 Active hydrOXYzine (ATARAX) 25 MG tabletIndications: Generalized [...] 75 MG tabletIndications: Coronary artery disease involving [place] coronary artery of [place] heart without angina pectoris TAKE 1 TABLET(75 MG) BY MOUTH DAILY 90 tablet 05/17/2023 Active rosuvastatin (CRESTOR) 40 MG tabletIndications: Hyperlipidemia LDL goal <70 TAKE 1 TABLET(40 MG) BY MOUTH DAILY 90 tablet 05/17/2023 Active amiodarone (PACERONE) 200 MG tabletIndications: Chronic atrial fibrillation (H) TAKE 1 TABLET(200 MG) BY MOUTH DAILY. Appointment needed for additional refills. Please call [phone] to schedule. 90 tablet 10/30/2023 Active sacubitril-valsart an (ENTRESTO) 24-26 MG per tabletIndications: Chronic systolic congestive heart failure (H),HTN, goal below 140/90 Take 1 tablet by mouth 2 times daily. 180 tablet 10/31/2023 Active Active Problems Problem Noted Date Diagnosed [...] 81 mg. Coronary artery disease invo lving [place] coronary artery of [place] heart without angina pectoris 02/06/2019 Primary narcolepsy [...] 11/24/2003 Insomnia with sleep apnea 10/06/2003 Overview: CONSTRUCTION SERVICES TECHNICIAN:06/10/2019 SR Esophageal reflux 10/06/2003 Resolved Problems Problem Noted Date Diagnosed Date Resolved Date Status post coronary angiogram 01/23/2022 04/28/2022 Acute encephalopathy 04/13/2021 022 Hematoma of rectus sheath 04/13/2021 Atrial fibrillation 04/13/2021 10/02/19 Acute on chronic systolic co ngestive heart [...] 05/25/2016 Depressive disorder, not elsewhere classified 09/06/2009 Encounters Date Type Department Care Team Description 10/31/2023 MyC Medical Advice [facility] [address] [place], [place] [phone] Elicia Metcalf, KASIE 10/31/2023 Orders Only [facility] [address] [place] [phone] Elicia Metcalf RN Chronic systolic congestive heart failure (H); HTN, goal below 140/90 10/30/2023 Refill [facility] [address] [place] [phone] Marilin Montaño, MANAGER STUDENT SERVICES Refill Request (Amiodarone) from Last 3 Months Immunizations Name Administration [...] Cerebrovascular Disease Mother Musculoskeletal Disorder Mother fibromy algia/Delgu-Mcohpdd-Rvuqn Myocardial Infarction Mother Rheumatoid Arthritis Mother Musculoskeletal [...] Comments Blood Pressure 123/70 02/14/2023 1:45 PM ART HANDLER Pulse 80 02/14/2023 1:45 PM ART HANDLER Temperature 36.8 ??C (98.3 ??F) 07/08/2022 7:41 AM CD T Respiratory Rate 20 02/14/2023 1:45 PM ART HANDLER Oxygen Saturation 94% 02/14/2023 1:45 PM ART HANDLER Inhaled Oxygen Concentration - - Weight 117.9 [...] 12/07/1979 FIT 10/05/2017 10/05/2016, 03/12/2015 RSV VACCINE (1 - Risk 60-74 years 1-dose series) 2020 A1C 07/10/2022 01/10/2022, 11/0 03/2021, 01/21/2021, Additional history exists ANNUAL REVIEW OF HM ORDERS 07/13/202207/13, 02/05/2020, 12/17/2018 MICROALBUMIN 07/13/2022 07/13/2021, 04/0 04/2020, 04/16/2019, Additional history exists YEARLY PREVENTIVE VISIT 01/03/2023 01/03/2022, 10/05 BMP 01/08/2023 07/08/2022, 05/0 07/2022, 07/06/2022, Additional history exists DIABETIC FOOT EXAM 01/21/2023 01/21/2022, 0 06/04/2020, 12/17/2018, Additional history exists ZOSTER IMMUNIZATION (2 of 2) 01/22/2023 11/27/2022 LIPID 02/15/2023 02/15/2022, 3 03/2021, 02/06/2020, Additional history exists PHQ-9 03/07/2023 09/04/2022, 07/0 05/2022, 01/03/2022, Additional history exists EYE EXAM 04/13/2023 04/13/2022, 11/2022, 04/13/2022, Additional history exists ALT 07/08/2023 07/07/2022, 02/02, 01/10/2022, Additional history exists CMP 07/08/2023 07/07/2022, 03/07, 01/21/2021, Additional history exists COVID-19 Vaccine ( season) 2023 01/03/2022, 08/05/2021, 03/10/2021, Additional history exists INFLUENZA VACCINE (#1) 2023 , 01/03/2022, 01/11/2021, Additional history exists CBC 02/15/2024 02/14/2023, 08/2022, 07/07/2022, Additional history exists COLORECTAL CANCER [...] Optimize Self-Care Behaviors 90%(03/23/19 23 3:12 PM ART HANDLER) Angelita Diaz RD Note: I will check [...] Diaz RD Medical Devices Implanted Type Area Environmental Law Professor Device Identifier Shelf Expiration Date Model / Serial / Lot Medtronic I* [id number] [place] Xt Hf Quad Weatherization And Housing Inspector-D Mri [id number] Implanted:03/17 (Quantity not on file) ICD [employer] [id number] OBALT XT HF QUAD JUDGE CLERK-D MRI / [id number] / Medtronic I* 4298 Attain Performa Mri Surescan [id number] Implanted:03/17 (Quantity not on file) Leads [employer] 4298 CLAUDY IN PERFORMA MRI SURESCAN / [id number] / Medtronic I* 5076 Capsurefix Novus [id number] Implanted:03/17 (Quantity not on file) Leads [employer] 5076 CAPS UREFIX NOVUS / [id number] / Medtronic I* 6935 Sprint Quattro Secure S [id number] Implanted:03/17 (Quantity not on file) Leads [employer] 6935 SPRI NT QUATTRO SECURE S / [id number] / Procedures Procedure Name Priority Date/Time Associated Diagnosis Comments CBC WITH PLATELETS STAT 02/14/2023 10 :20 AM ART HANDLER BASIC METABOLIC PANEL Routine 07/08/2022 7:24 AM CDT COMPREHENSIVE METABOLIC PANEL Routine 07/07/2022 10:33 AM CDT EYE EXAM - HIM SCAN 04/13/2022 1 2:00 AM ART HANDLER LIPID PROFILE Routine 02/15/2022 10:03 AM ART HANDLER Chronic systolic congestive heart failure (H) HTN, goal below 140/90 COLOGUARD([employer]) Routine 01/24/2022 12:00 PM ART HANDLER Screen for colon cancer HEMOGLOBIN A1C Routine 01/10/2022 9:45 AM ART HANDLER Type 2 diabetes mellitus with diabetic nephropathy, with long-term current use of insulin (H) CT ANGIOGRAM TAVR Routine 12/27/2021 4:0 2 PM CDT Nonrheumatic aortic valve stenosis TSH WITH FREE T4 REFLEX Routine 10/03/2021 [...] (ABNORMAL) CBC with platelets (02/14/2023 10:20 AM ART HANDLER) WBC Count 10.9 4.0 - 11.0 10e3/uL 02/14/2023 10:33 AM ART HANDLER [facility] RBC Count 4.72 4.40 - 5.90 10e6/uL 02/14/2023 10:33 AM ART HANDLER [facility] Hemoglobin 10.4(L) 13.3 - 17.7 g/dL 02/14/2023 10:33 AM ART HANDLER [facility] Hematocrit 34.3(L) 40.0 - 53.0 % 02/14/2023 10:33 AM ART HANDLER [facility] MCV 73(L) 78 - 100 fL 02/14/2023 10:33 AM ART HANDLER [facility] MCH 22.0(L) 26.5 - 33.0 pg 02/14/2023 10:33 AM ART HANDLER [facility] MCHC 30.3(L) 31.5 - 36.5 g/dL 02/14/2023 10:33 AM ART HANDLER [facility] RDW 16.5(H) 10.0 - 15.0 % 02/14/2023 10:33 AM ART HANDLER [facility] Platelet Count 400 150 - 450 10e3/uL 02/14/2023 10:33 AM ART HANDLER [facility] Blood BLOOD SPECIMEN / Unknown Intraosseous / Unknown 02/14/2023 10:20 AM ART HANDLER 02/14/2023 10:29 AM ART HANDLER Susannah Plasencia DUANE MANAGER STUDENT SERVICES LAB - BLOOD ORDERABLES LABORATORY [facility] [address] Lab (1st floor, no room number) [place] [address], [facility] [phone] * (ABNORMAL) Basic metabolic panel (07/08/2022 7:24 AM CDT) Sodium 137 136 - 145 mmol/L 07/08/2022 7:53 AM CDT LABORATORY Potassium 4.2 3.4 - 5.3 mmol/L [...] 07/08/2022 7:53 AM CDT LABORATORY Comment:eGFR calculated us2020 CKD-EPI equation. Blood STRUCTURE OF RIGHT UPPER LIMB / Unknown Venipuncture / Unknown 07/08/2022 7:24 AM CDT 07/08/2022 7:32 AM CDT Meir Lovell MD LAB - BLOOD ORDE RABLES [facility] LABORATORY [facility] [address] Lab (1st floor, no room number) [place] [address], [facility] [phone] * (ABNORMAL) Comprehensive metabolic panel (07/07/2022 10:33 [...] >60 mL/min/1.7 3m2 07/07/2022 10:59 AM CDT [facility] Comment:eGFR calculated usin 2020 CKD-EPI equation. Blood STRUCTURE OF RIGHT HAND / Unknown Venipuncture / Unknown 07/07/2022 10:33 AM CDT 07/07/2022 10:41 AM CDT Luis Alcaraz MD LAB - BLOOD ORDERABL ES [facility] LABORATORY [facility] [address] Lab (1st floor, no room number) [place] [address], [facility] [phone] * (ABNORMAL) EYE EXAM - HIM SCAN (04/13/2022 12:00 AM ART HANDLER) RETINOPATHY POSITIVE(A ) 04/13/2022 Provider Outside OTHER * (ABNORMAL) Lipid Profile (02/15/2022 10:03 AM ART HANDLER) Cholesterol 178 <200 mg/dL 02/15/2022 3:56 PM ART HANDLER [facility] Triglycerides 285(H) <150 mg/dL 02/15/2022 3:56 PM ART HANDLER [facility] Direct Measure HDL 34(L) >=40 mg/dL 02/15/2022 3:56 PM ART HANDLER [facility] LDL Cholesterol Calculated 87 <=100 mg/dL 02/15/2022 3:56 PM ART HANDLER [facility] Non HDL Cholesterol 144(H) <130 mg/dL 02/15/2022 3:56 PM ART HANDLER [facility] Blood STRUCTURE OF RIGHT UPPER LIMB / Unknown Venipuncture / Unknown 02/15/2022 10:03 AM ART HANDLER 02/15/2022 10:03 AM ART HANDLER Narrative [facility] - 02/15/2022 3:56 PM ART HANDLER Cholesterol Desirable: ??<200 mg/dL Triglycerides Normal: ??Less [...] equal to 220 mg/dL Keerthi Miner APRN MANAGER STUDENT SERVICES LAB - BLOOD ORDERABLES LABORATORY [facility] Lab [address] [address], [facility] [phone] * (ABNORMAL) COLOGUARD(Hepregen) (01/24/2022 12:00 PM ART HANDLER) [facility] COLOGUARD-ABSTRAC T Positive( A) Negative 01/29/2022 7:20 AM ART HANDLER [facility] (CLIA #:[id number]) Comment: POSITIVE TEST RESULT. A positive Cologuard [...] screened with both Cologuard and colonoscopy. (Chelo Echeverria al, N Engl J Med 2014;370(14):1535-3604.) Cologuard may produce a false negative or false positive result (no colorectal cancer or precancerous polyp present at colonoscopy follow up). A negative Cologuard test result does not guarantee the absence of CRC or advanced adenoma (pre-cancer). The current Cologuard screening interval is every 3 years. ([place] Cancer Society and U.S. Multi-Society Task Force). Cologuard performance data in a 10,000 patient pivotal study using colonoscopy as the reference method can be accessed at the following location: www.[employer]/results. Additional description of the Cologuard test process, warnings and precautions can be found at [email or web address]. Stool specimen (specimen) 01/24/2022 12:00 PM ART HANDLER 01/25/2022 1:01 PM ART HANDLER Paula Reza MD LABORATORY [facility] [address] [phone] [facility] (CLIA #:[id number]) [address] [place] [address] * (ABNORMAL) Hemoglobin A1c (01/10/2022 9:45 AM ART HANDLER) Hemoglobin A1C 8.9(H) 0.0 - 5.6 % 01/10/2022 9:52 AM ART HANDLER [facility] Comment: Normal <5.7% Prediabetes 5.7-6.4% ?? Diabetes 6.5% or higher Note: Adopted from ADA consensus guidelines. Blood STRUCTURE OF RIGHT UPPER LIMB / Unknown Venipuncture / Unknown 01/10/2022 9:45 AM ART HANDLER 01/10/2022 9:45 AM ART HANDLER Narrative [facility] - 01/10/2022 9:52 AM ART HANDLER Reviewed, ok with previous. Roopa Almonte MD LAB - BLOOD ORDER KEVIN [facility]AT[facility] [address], [address] [place] [address], [facility] [phone] * CT Angiogram TAVR (12/27/2021 4:02 PM CDT) Anatomical Region Laterality Modality Lower Extremity, UMP CT CTA Comp uted Tomography Impressions 12/28/2021 9:34 AM CDT IMPRESSION: 1. ??No acute aortic pathology like dissection, intramural hematoma or contained rupture noted. 2. ??Please review detailed radiology report, to follow separately, for incidental non-cardiovascular findings. FINDINGS: 1. ??Tricuspid aortic valve. Aortic valve calcium score is 3869. The ascending aorta is minimal calcified, aortic arch is ??minimal calcified, the descending thoracic aorta is minimal calcified. 2. ??The arch vessel branching pattern is normal. 3. ??The suprarenal abdominal aorta is mild calcified; infrarenal abdominal aorta is mild calcified 4. ??Widely patent origins of celiac trunk, superior mesenteric artery and inferior mesenteric artery. ??Single bilateral renal arteries with widely patent origins. 5. ??There is no acute aortic pathology, such as dissection, intramural hematoma, or contained rupture. MEASUREMENTS: Shipping Agent dimensions of the thoracoabdominal aorta are as follows: 1. AORTIC ANNULUS MEASUREMENTS: * ??The average aortic annulus diameter is 27.8 mm, * ??Aortic annulus area is 6.07 cm2 * ??Aortic annulus perimeter is 92.4 mm * ??The 3 cusp coaxial angle for aortic valve is (OACMPO 8 , DAIRY INSPECTOR 6) these angles will vary depending upon the patient's body position * ??Left main - Annulus distance: 13.7 mm, RCA - Annulus distance: 17.9 mm 2. LVOT MEASUREMENTS: * ??The average LVOT diameter is 27.2 mm * ??LVOT area is 521 cm2 * ??LVOT perimeter is 90.4 mm * ??LVOT calcification minimal mm 3. AORTA MEASUREMENTS 1. ??The aortic root at the sinuses of Valsalva (L/R/N) 40 mm x ??37.4 mm 36.5 mm 2. ??The sinotubular junction: ??33.3 mm x 33.1 mm 3. ??Sinotubular junction height: 22.18 mm x 22.8 mm 4. ??Proximal ascending aorta: 34.2 mm x 36.3 mm 5. ??Distal abdominal aorta proximal to the bifurcation: 60.4 mm x 17.6 mm 4. ILIOFEMORAL MEASUREMENTS: RIGHT: 1. ??Right common iliac artery: 9.61 mm x ??12.5 mm 2. ??Right external iliac artery: 9.3 mm x 10.4 mm 3. ??Right common femoral artery: 8.69 mm x 9.31 mm 4. ??Tortuosity: severe 5. ??Calcification: mild LEFT: 1. ??Left common iliac artery: 9.53 mm x ??13.5 mm 2. ??Left external iliac artery: 10.1 mm x 11.1 mm 3. ??Left common femoral artery 9.15 mm X 9.90 mm 4. ?? Tortuosity:Mild 1. ??Calcification: mild While Aortic root angle: ??31.1 degrees OTHER FINDINGS: 1. ?? 2. ??Please review radiology review for incidental non-cardiovascular findings including lungs, abdominal organs, bone, soft tissue, nodes to follow separately SIDNEY CHAN MD Narrative 12/28/2021 9:34 AM CDT Procedure: CT ANGIOGRAM TAVR Examination Date: 12/27/2021 4:02 PM Indication: Severe aortic stenosis, Pre TAVR Ordering Provider: TIARA YOST TECHNIQUE: ECG gated CT of the heart, aorta and nongated CT of the chest abdomen pelvis without and with IV contrast Isovue 115 mL was performed per the PATRICIA protocol on a Siemens Dual Source Flash scanner without incident. A noncontrast CT of the chest abdomen and pelvis was performed followed by contrast-enhanced CTA of the heart in a spiral gated mode with limited kgdzo-da-xybc followed by gated high pitch spiral CTA of the chest, abdomen, pelvis at 120 kVP to evaluate the thoracoabdominal aorta and iliac vasculature. Scan protocol was optimized to minimize radiation exposure. The total radiation exposure was 1409 DLP and 19.7 mSv. Images were reconstructed and analyzed on a [employer] Workstation. Procedure Note Sidney Chan MD - 12/28/2021 Procedure: CT ANGIOGRAM TAVR Examination Date: 12/27/2021 4:02 PM Indication: Severe aortic stenosis, Pre TAVR Ordering Provider: TIARA YOST TECHNIQUE: ECG gated CT of the heart, aorta and nongated CT of the chest abdomen pelvis without and with IV contrast Isovue 115 mL was performed per the PATRICIA protocol on a Siemens Dual Source Flash scanner without incident. A noncontrast CT of the chest abdomen and pelvis was performed followed by contrast-enhanced CTA of the heart in a spiral gated mode with limited ouwvq-lu-kmgw followed by gated high pitch spiral CTA of the chest, abdomen, pelvis at 120 kVP to evaluate the thoracoabdominal aorta and iliac vasculature. Scan protocol was optimized to minimize radiation exposure. The total radiation exposure was 1409 DLP and 19.7 mSv. Images were reconstructed and analyzed on a [employer] Workstation. IMPRESSION: 1. No acute aortic pathology like dissection, intramural hematoma or contained rupture noted. 2. Please review detailed radiology report, to follow separately, for incidental non-cardiovascular findings. FINDINGS: 1. Tricuspid aortic valve. Aortic valve calcium score is 3869. The ascending aorta is minimal calcified, aortic arch is minimal calcified, the descending thoracic aorta is minimal calcified. 2. The arch vessel branching pattern is normal. 3. The suprarenal abdominal aorta is mild calcified; infrarenal abdominal aorta is mild calcified 4. Widely patent origins of celiac trunk, superior mesenteric artery and inferior mesenteric artery. Single bilateral renal arteries with widely patent origins. 5. There is no acute aortic pathology, such as dissection, intramural hematoma, or contained rupture. MEASUREMENTS: Shipping Agent dimensions of the thoracoabdominal aorta are as follows: 1. AORTIC ANNULUS MEASUREMENTS: * The average aortic annulus diameter is 27.8 mm, * Aortic annulus area is 6.07 cm2 * Aortic annulus perimeter is 92.4 mm * The 3 cusp coaxial angle for aortic valve is (OCAMPO 8 , DAIRY INSPECTOR 6) these angles will vary depending upon the patient's body position * Left main - Annulus distance: 13.7 mm, RCA - Annulus distance: 17.9 mm 2. LVOT MEASUREMENTS: * The average LVOT diameter is 27.2 mm * LVOT area is 521 cm2 * LVOT perimeter is 90.4 mm * LVOT calcification minimal mm 3. AORTA MEASUREMENTS 1. The aortic root at the sinuses of Valsalva (L/R/N) 40 mm x 37.4 mm 36.5 mm 2. The sinotubular junction: 33.3 mm x 33.1 mm 3. Sinotubular junction height: 22.18 mm x 22.8 mm 4. Proximal ascending aorta: 34.2 mm x 36.3 mm 5. Distal abdominal aorta proximal to the bifurcation: 60.4 mm x 17.6 mm 4. ILIOFEMORAL MEASUREMENTS: RIGHT: 1. Right common iliac artery: 9.61 mm x 12.5 mm 2. Right external iliac artery: 9.3 mm x 10.4 mm 3. Right common femoral artery: 8.69 mm x 9.31 mm 4. Tortuosity: severe 5. Calcification: mild LEFT: 1. Left common iliac artery: 9.53 mm x 13.5 mm 2. Left external iliac artery: 10.1 mm x 11.1 mm 3. Left common femoral artery 9.15 mm X 9.90 mm 4. Tortuosity:Mild 1. Calcification: mild While Aortic root angle: 31.1 degrees OTHER FINDINGS: 1. 2. Please review radiology review for incidental non-cardiovascular findings including lungs, abdominal organs, bone, soft tissue, nodes to follow separately SIDNEY CHAN MD Tiara Yost MD IMG CT ORDERABLES * TSH with free T4 reflex (10/03/2021 8:11 AM CDT) TSH 2.97 0.30 - 4.20 uIU/mL 10/03/2021 8:58 AM CDT [facility] Blood STRUCTURE OF RIGHT UPPER LIMB / Unknown Venipuncture / Unknown 10/03/2021 8:11 AM CDT 10/03/2021 8:13 AM CDT Keerthi Miner APRN MANAGER STUDENT SERVICES LAB - BLOOD ORDERABLES LABORATORY [facility] [address] Lab (1st floor, no room number) [place] [address], [facility] [phone] * Albumin Random Urine Quantitative with Creat [...] Aguayo PA-C LAB - URINE ORDERA BLES LABORATORY [facility] [address] Lab (no room number, 1st floor of clinic) [place] [address], [facility] [phone] * HIV Antigen Antibody Combo (06/04/2020 2:43 PM CDT) HIV Antigen Antibody Combo Nonreactive NR^Nonrea ctive 06/04/2020 8:30 PM CDT [facility] Comment:HIV-1 p24 Ag & HIV-1 /HIV-2 Ab Not Detected Blood 06/04/2020 2:43 PM CDT 06/04/2020 2:44 PM CDT Shahida Sutton APRN MANAGER STUDENT SERVICES LAB - BLOOD ORDERABLES [facility] [address] [place] [address] * Hepatitis C Screen Reflex to HCV RNA Quant and Genotype (06/04/2020 2:43 PM CDT) Hepatitis C Antibody Nonreactive NR^Nonre active 06/04/2020 8:38 PM CDT [facility] Comment: Assay performance characteristics have not been established for newborns, infants, and children Blood 06/04/2020 2:43 PM CDT 06/04/2020 2:44 PM CDT Shahida Sutton APRN MANAGER STUDENT SERVICES LAB - BLOOD ORDERABLES Performing Organization Address City/[facility]/ZIP Co de Phone Number [facility] [address] [place] [address] * PHQ-9 DEPRESSION SCREENING ORDER (05/01/2018) PHQ9 SCORE 5 Narrative Charlesradha Joseelsi - 05/01/2018 [facility] PROGRESS NOTE Provider Outside OTHER * Fecal colorectal cancer screen (FIT) (10/05/2016 10:45 AM CDT) Occult Blood Scn FIT Negative NEG [facility] Stool specimen (specimen) 10/05/2016 10:45 AM CDT 10/11/2016 11:00 AM CDT Shahida Sutton APRN MANAGER STUDENT SERVICES LAB - STOOL S ORDERABLES Performing Organization Address [facility] Co de Phone Number [facility] [address] [place] [address] from Last 3 Months or Most Recently Relevant to Health Maintenance Additional Health Concerns Active Problems Noted Date Diagnosed Date HbA1C Not In Goal 02/23/2022 Diabetes Self-Management Edu cation Needed to Optimize Self-Care Behaviors 02/23/2022 Infection Onset Date Last Indicated ESBL 01/05/2021 01/05/2021 Advance Directives For more information, please contact: [phone] * Full Code (Latest Code Status on File) Date Activated Date Inactivated Comments 07/08/2022 11:25 AM 02/14/2023 9:39 AM Question Answer Comments Code status determined by: Discussion with patie nt/ legal decision maker * Full Code Date Activated Date Inactivated Comments 07/06/2022 8:19 PM 07/08/2022 11:25 AM All basic and advanced life-sustaining interventions are performed as appropriate Question Answer Comments Code status determined by: Discussion with patie nt/ legal decision maker Care Teams Buffing 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 Relationship Specialty Start Date End Date Paula Reza MD [address] [place], [place] [id number] PCP - General Internal Medicine 08/05/21 Roopa Almonte MD [address] [place] [address] Endocrinology, Diabetes, and Metabolism 01/19/21 Maryse Burton, PA-C [address] [place] [address] Physician Fire Crew Worker Dermatology 04/14/21 Roopa Almnote MD [address] [facility] [address] [place] [address] Hospitalist Endocrinology, Diabetes, and Metabolism 05/30/21 Griffin Joshi MD [address] [facility] [address] [place] [address] Cardiovascular Disease 07/25/21 Roopa Almonte MD [address] [place] [address] Assigned Endocrinology Provider 09/10/21 Daylin Ludwig EP [facility] [address] [place] [id number] Cardiac Rehabilitation Therapist 05/16/23 Marilin Montaño, MANAGER STUDENT SERVICES [address] [place] [address] Assigned Heart and Vascular Provider 08/05/22 Esha Dewitt MD [address] [facility] [address] [place], [place] [id number] Gastroenterology 09/06/22 Heather Mosquera MD [address] [facility] [address] [place] [address] Internal Medicine 09/06/22 Esha Dewitt MD [address] [facility] [address] [place] [address] Assigned Gastroenterology Provider 09/23/22 Valdo Escamilla PA-C [address] [facility] [address] [place] [address] Assigned Neuroscience Provider 09/30/22 Nohelia Abarca PA-C [address] [place] [address] Physician Fire Crew Worker Gastroenterology 10/03/22 Heather Mosquera MD [address] [facility] [address] [place] [address] Assigned PCP 01/06/23
--- OUTSIDE RECORDS SUMMARY | 2023-12-25 08:11 | XMS_ITS | Encounter Summary ---
Author Organization [place] Address [address] [place] [address] Care Team Providers Care Tube Molder Fiberglass Name Role Phone Roopa Almonte MD Unavailable [phone] Maryse Burton PA-C Unavailable Roopa Almonte MD Unavailable [phone] Griffin Joshi MD Unavailable Paula Reza MD Primary Care Provider [phone] Roopa Almonte MD Unavailable [phone] Augustine Callaway MD Unavailable Daylin Ludwig Unavailable Daylin Ludwig Unavailable [phone] Marilin Montaño LPN INSTRUCTOR Unavailable [phone] Esha Dewitt MD Unavailable [phone] Heather Mosquera MD Unavailable [phone] Paula Reza MD Unavailable Esha Dewitt MD Unavailable [phone] Valdo EscamillaC Unavailable [phone] Nohelia Abarca PA-C Unavailable [phone] Heather Mosquera MD Unavailable [phone] Fawad York MD Unavailable [phone] Encounter Details Date Type Department Care Team (Late st Contact Info) Description 10/19/2022 MyC Medical Advice [facility] [address] 4th [place] [address] Paz Zavala, RN Social History [...] to Optimize Self-Care Behaviors 90%(03/23/19 3:12 PM GAS PLANT SPECIALIST) Angelita Diaz RD Note: I will [...] as of this encounter Care Teams Tube Molder Fiberglass Relationship Specialty Start Date End Date Paula Reza MD [address] [facility] 200 [place] [address] PCP - General Internal Medicine 08/05/21 Roopa Almonte MD [address] [facility] 200 [place] [address] Endocrinology, Diabetes, and Metabolism 01/19/21 Maryse Burton PA-C [address] [place], [place] [address] Physician Inspector Electromechanical Dermatology 04/14/21 Roopa Almonte MD [address] [facility] 200 [place] [address] Hospitalist Endocrinology, Diabetes, and Metabolism 05/30/21 Griffin Joshi MD [address] [facility] [address] [place] [address] Cardiovascular Disease 07/25/21 Roopa Almonte MD [address] [facility] 200 [place], [place] [address] Assigned Endocrinology Provider 09/10/21 [place] [address] [facility] [address] [place] [address] Assigned Musculoskeletal Provider 10/15/21 04/26/23 Daylin Ludwig EP [facility] [address] [address] Cardiac Rehabilitation Therapist 05/16/23 Daylin Ludwig EP [facility] [address] [place] [address] Cardiac Rehabilitation Therapist 06/08/22 06/09/23 Marilin Montaño, LPN INSTRUCTOR [address] [address] Assigned Heart and Vascular Provider 08/05/22 Esha Dewitt MD 420 [facility] 36 [place], [place] [address] MD Gastroenterology 09/06/22 Heather Mosquera MD [address] [place] [address] Internal Medicine 09/06/22 Paula Reza MD [address] E [facility] 200 [place] [address] Assigned PCP 09/09/22 01/05/23 Esha Dewitt MD 420 [facility] 36 [place] [address] Assigned Gastroenterology Provider 09/23/22 Valdo Escamilla PA-C [address] [place], [place] [address] Assigned Neuroscience Provider 09/30/22 Nohelia Abarca PA-C [address] [place], [place] [address] Physician Inspector Electromechanical Gastroenterology 10/03/22 Heather Mosquera MD [address] [address] Assigned PCP 01/06/23 Fawad York MD 9 [place] [address] Assigned Musculoskeletal Provider 04/27/23 06/25/23 documented as of this encounter
--- OUTSIDE RECORDS SUMMARY | 2023-12-25 08:11 | XMS_ITS | Encounter Summary ---
Author Organization [place] Address [address] [place] [address] Care Team Providers Care Saturator Tender Name Role Phone Roopa Almonte MD Unavailable [phone] Maryse Burton PA-C Unavailable Roopa Almonte MD Unavailable [phone] Griffin Joshi MD Unavailable Paula Reza MD Primary Care Provider [phone] Roopa Almonte MD Unavailable [phone] Augustine Callaway MD Unavailable Daylin Ludwig Unavailable Daylin Ludwig Unavailable [phone] Marilin Montaño COMPLIANCE SPECIALIST Unavailable [phone] Esha Dewitt MD Unavailable [phone] Heather Mosquera MD Unavailable [phone] Paula Reza MD Unavailable Esha Dewitt MD Unavailable [phone] Valdo EscamillaC Unavailable [phone] Nohelia Abarca PA-C Unavailable [phone] Heather Mosquera MD Unavailable Fawad York MD Unavailable Reason for Visit * Reason Onset Date Comments Medication Request 10/20/2022 amiodarone (P ACERONE) 200 MG tablet [[id number]] Encounter Details Date Type Department Care Team (Late st Contact Info) Description 10/20/2022 Telephone [facility] Heart [facility] [address] [facility] [address] [place] [address] Griffin Joshi MD 4177 [facility] [address] [place] [address] Medication Request (/amiodarone (PACERONE) 200 MG tablet [[id number]] /) Social History Tobacco Use Types Packs/Day [...] being requested: amiodarone (PACERONE) 200 MG tablet [[id number]] Provider who prescribed the medication: Dr Joshi Pharmacy: [id number] - [place], [place] - [address] [place] [address] AT [address] [...] Optimize Self-Care Behaviors 90%(03/23/19 23 3:12 PM BAG TURNER) No Angelita Pemberton RD Note: I will [...] documented as of this encounter Care Teams Saturator Tender Relationship Specialty Start Date End Date Paula Reza MD [address] [address] PCP - General Internal Medicine 08/05/21 Roopa Almonte MD [address] [address] Endocrinology, Diabetes, and Metabolism 01/19/21 Maryse Burton PAAna MariaC 5200 [place] [address] Physician Agricultural Crop Farm Manager Dermatology 04/14/21 Roopa Almonte MD [address] 200 [place] [address] Hospitalist Endocrinology, Diabetes, and Metabolism 05/30/21 Griffin Joshi MD [address] [facility] [address] [place] [address] Cardiovascular Disease 07/25/21 Roopa Almonte MD [address] 200 [place], [place] [address] Assigned Endocrinology Provider 09/10/21 [place] [address] [facility] 300 [place] [address] Assigned Musculoskeletal Provider 10/15/21 04/26/23 Daylin Ludwig EP [facility] [address] [place] [address] Cardiac Rehabilitation Therapist 05/16/23 Daylin Ludwig EP [facility] [address] [place] [address] Cardiac Rehabilitation Therapist 06/08/22 06/09/23 Marilin Montaño, COMPLIANCE SPECIALIST [address] [address] Assigned Heart and Vascular Provider 08/05/22 Esha Dewitt MD 420 [facility] 36 [place], [place] [address] Gastroenterology 09/06/22 Heather Mosquera MD [address] [place] [address] Internal Medicine 09/06/22 Paula Reza MD [address] [place] [address] Assigned PCP 09/09/22 01/05/23 Esha Dewitt MD 420 [facility] 36 [place], [place] [address] Assigned Gastroenterology Provider 09/23/22 Valdo Escamilla PA-C [address] [facility] [address] [place], [place] [address] Assigned Neuroscience Provider 09/30/22 Nohelia Abarca PA-C 2450 [place], [place] [address] Physician Agricultural Crop Farm Manager Gastroenterology 10/03/22 Heather Mosquera MD [address] [place] [address] Assigned PCP 01/06/23 Fawad York MD 909 [place], [place] [address] Assigned Musculoskeletal Provider 04/27/23 06/25/23 documented as of this encounter
--- OUTSIDE RECORDS SUMMARY | 2023-12-25 08:11 | XMS_ITS ---
Care Plan Created on: December 25, 2023 Mauro Terrell : 1960 Sex: Male Author Organization [place] Address [address] [address] Care Team Providers Care Social Work Instructor Name Role Phone Roopa Almonte MD Unavailable [phone] Maryse Burton PA-C Unavailable Roopa Almonte MD Unavailable [phone] Griffin Joshi MD Unavailable Paula Reza MD Primary Care Provider Roopa Almonte MD Unavailable Daylin Ludwig Unavailable Marilin Montaño SEAM FINISHER Unavailable [phone] Esha Dewitt MD Unavailable [phone] Heather Mosquera MD Unavailable [phone] Esha Dewitt MD Unavailable [phone] Valdo EscamillaC Unavailable [phone] Nohelia Abarca PA-C Unavailable [phone] Heather Mosquera MD Unavailable Active Problems [...] 81 mg. Coronary artery disease invo lving [place] coronary artery of [place] heart without angina pectoris 02/06/2019 Primary narcolepsy [...] 11/24/2003 Insomnia with sleep apnea 10/06/2003 Overview: EMBROIDERY ASSISTANT:06/10/2019 SR Esophageal reflux 10/06/2003 Resolved Problems Problem [...] to Optimize Self-Care Behaviors 90%(03/23/19 3:12 PM BRICK LOADER) Angelita Diaz RD Note: I will check [...] monitoring (sensor placement, use of cl or mail handler sorter/reader, understanding glucose trends, alerts and alarms, differences [...] 02/23/2022 Refer patient to appropriate extended care outreach team member, as needed (Medication Therapy Management, [...] patient; Refer patient to appropriate extended care outreach team member, as needed (Medication Therapy Management, [...] monitoring (sensor placement, use of cl or mail handler sorter/reader, understanding glucose trends, alerts and alarms, differences [...]
--- OUTSIDE RECORDS SUMMARY | 2023-12-25 08:11 | XMS_ITS | Encounter Summary ---
Author Organization [place] Address [address] [place] [address] Care Team Providers Care Space Physicist Name Role Phone Roopa Almonte MD Unavailable [phone] Maryse Burton PA-C Unavailable Roopa Almonte MD Unavailable [phone] Griffin Joshi MD Unavailable Paula Reza MD Primary Care Provider Roopa Almonte MD Unavailable [phone] Daylin Ludwig Unavailable [phone] Marilin Montaño CNP Unavailable [phone] Esha Dewitt MD Unavailable [phone] Heather Mosquera MD Unavailable [phone] sEha Dewitt MD Unavailable [phone] Valdo EscamillaC Unavailable [phone] Nohelia Abarca PA-C Unavailable [phone] Heather Mosquera MD Unavailable [phone] Reason for Referral * Medication Prior Authorization - Authorized Specialty Diagnoses / Procedures Referred By Contac t Referred To Contact Diagnoses Chronic systolic congestive heart failure (H) HTN, goal below 140/90 Marilin Montaño, PAULA [address] [address] Referral ID Status Reason Start Date Expiration Date V isits Requested Visits Authorized [id number] Authorized 10/31/2023 10/30/2024 1 1 Encounter Details Date Type Department Care Team (Late st Contact Info) Description 10/31/2023 Orders Only [facility] [address] [facility] [address] [place] [address] Elicia Metcalf, on site services specialist systolic congestive heart failure (H); HTN, goal below 140/90 Social History Tobacco Use Types Packs/Day Years [...] Optimize Self-Care Behaviors 90%(03/23/19 23 3:12 PM PACKING HOUSE LABORER) Angelita Diaz RD Note: I will check [...] as of this encounter Visit Diagnoses Diagnosis Chronic systolic congestive heart failure (H) Chronic systolic heart failure HTN, goal below 140/90 Unspecified essential hypertension [...] documented as of this encounter Care Teams Space Physicist Relationship Specialty Start Date End Date Paula Reza MD [address] [address] PCP - General Internal Medicine 08/05/21 Roopa Almonte MD [address] [facility] 200 [place] [address] Endocrinology, Diabetes, and Metabolism 01/19/21 Maryse Burton, PAAna MariaC 5200 [place] [address] Physician Warehouse Manager Dermatology 04/14/21 Roopa Almonte MD [address] [facility] 200 [place], [place] [address] Hospitalist Endocrinology, Diabetes, and Metabolism 05/30/21 Griffin Joshi MD [address] [facility] [address] [address] Cardiovascular Disease 07/25/21 Roopa Almonte MD [address] 200 [place], [place] [address] Assigned Endocrinology Provider 09/10/21 Daylin Ludwig EP [facility] [address] [address] Cardiac Rehabilitation Therapist 05/16/23 Marilin Montaño, PRODUCT SAFETY SPECIALIST [address]405 [facility] [place] [address] Assigned Heart and Vascular Provider 08/05/22 Esha Dewitt MD 420 [facility] 36 [place] [address] Gastroenterology 09/06/22 Heather Mosquera MD [address] [place] [address] Internal Medicine 09/06/22 Esha Dewitt MD 420 [facility] 36 [place], [place] [address] Assigned Gastroenterology Provider 09/23/22 Valdo Escamilla PA-C [address] [facility] [address] [place] [address] Assigned Neuroscience Provider 09/30/22 Nohelia Abarca PA-C [address] [facility] [place] [address] Physician Warehouse Manager Gastroenterology 10/03/22 Heather Mosquera MD [address] [place] [address] Assigned PCP 01/06/23 documented as of this encounter
--- OUTSIDE RECORDS SUMMARY | 2023-12-25 08:11 | XMS_ITS | Encounter Summary ---
Author Organization [place] Address [address] [place] [address] Care Team Providers Care Event Promotions Coordinator Name Role Phone Roopa Almonte MD Unavailable [phone] Maryse Burton PA-C Unavailable Roopa Almonte MD Unavailable [phone] Griffin Joshi MD Unavailable Paula Reza MD Primary Care Provider Roopa Almonte MD Unavailable Daylin Ludwig Unavailable Marilin Montaño DENTAL INTERNSHIP Unavailable [phone] Esha Dewitt MD Unavailable [phone] Heather Mosquera MD Unavailable [phone] Esha Dewitt MD Unavailable [phone] Valdo EscamillaC Unavailable [phone] Nohelia bAarca PA-C Unavailable [phone] Heather Mosquera MD Unavailable [phone] Reason for Visit * Reason Onset Date Comments Refill Request 10/30/2023 Amiodarone Encounter Details Date Type Department Care Team (Late st Contact Info) Description 10/30/2023 Refill [facility] 6405 [facility] [address] [place] [address] Marilin Montaño, DENTAL INTERNSHIP [address] [place] [address] Refill Request (Amiodarone) Social History Tobacco Use Types Packs/Day Years [...] encounter Miscellaneous Notes * Telephone Encounter - Mukesh Louis RN - 10/30/2023 11:35 AM CDT [facility] Cardiology Refill Guideline reviewed. Medication meets criteria for refill. documented in this encounter Plan of Treatment [...] Optimize Self-Care Behaviors 90%(03/23/19 23 3:12 PM INTEGRATED CIRCUIT IC LAYOUT DESIGNER) Angelita Diaz RD Note: I will check [...] of this encounter Visit Diagnoses Diagnosis Chronic atrial fibrillation (H) Atrial fibrillation documented in this encounter Additional Health Concerns Active Problems Noted Date Diagnosed Date HbA1C Not In Goal 02/23/2022 Diabetes Self-Management Edu cation Needed to Optimize Self-Care Behaviors 02/23/2022 Infection Onset Date Last Indicated Resolved Time ESBL 01/05/2021 01/05/2021 Assessment Noted Time PHQ-9 Depression Total Score: 5 09/05/19 23 2:29 PM CDT documented as of this encounter Care Teams Event Promotions Coordinator Relationship Specialty Start Date End Date Paula Reza MD [address] [facility] 200 [place], [place] [address] PCP - General Internal Medicine 08/05/21 Roopa Almonte MD [address] [facility] 200 [place] [address] Endocrinology, Diabetes, and Metabolism 01/19/21 Maryse Burton PA-C 5[address] [place], [place] [address] Physician Quarter Inspector Dermatology 04/14/21 Roopa Almonte MD 303 E [facility] 200 [place] [address] Hospitalist Endocrinology, Diabetes, and Metabolism 05/30/21 Griffin Joshi MD [address] [facility] [address] [place] [address] Cardiovascular Disease 07/25/21 Roopa Almonte MD [address] [place], [place] [address] Assigned Endocrinology Provider 09/10/21 Daylin Ludwig EP [facility] [address] [place] [address] Cardiac Rehabilitation Therapist 05/16/23 Marilin Montaño, DENTAL INTERNSHIP [address]405 [facility] [place] [address] Assigned Heart and Vascular Provider 08/05/22 Esha Dewitt MD 420 [facility] 36 [place] [address] Gastroenterology 09/06/22 Heather Mosquera MD [address] [place], [place] [address] Internal Medicine 09/06/22 Esha Dewitt MD 420 [facility] 36 [place] [address] Assigned Gastroenterology Provider 09/23/22 Valdo Escamilla PA-C [address] [facility] [address] [place] [address] Assigned Neuroscience Provider 09/30/22 Nohelia Abarca PA-C 2450 [facility] [place] [address] Physician Quarter Inspector Gastroenterology 10/03/22 Heather Mosquera MD [address] [place] [address] Assigned PCP 01/06/23 documented as of this encounter
--- OUTSIDE RECORDS SUMMARY | 2023-12-25 08:11 | XMS_ITS | Encounter Summary ---
Author Organization [place] Address [address] [place] [address] Care Team Providers Care Collaborative Teacher Name Role Phone Roopa Almonte MD Unavailable [phone] Maryse Burton-C Unavailable [phone] Roopa Almonte MD Unavailable [phone] Griffin Joshi MD Unavailable Paula Reza MD Primary Care Provider Roopa Almonte MD Unavailable [phone] Augustine Callaway MD Unavailable Daylin Ludwig Unavailable Daylin Ludwig Unavailable [phone] Marilin Montaño PLASTIC CARD GRADER CARDROOM Unavailable [phone] Esha Dewitt MD Unavailable [phone] Heather Mosquera MD Unavailable [phone] Esha Dewitt MD Unavailable [phone] Valdo Escamilla PA-C Unavailable [phone] Nohelia Abarca-C Unavailable [phone] Heather Mosquera MD Unavailable Fawad York MD Unavailable Encounter Details Date Type Department Care Team (Late st Contact Info) Description 01/29/2023 MyC Medical Advice [facility] Gastroenterology Clinic [address] 4th [place] [address] Rina Levin, KASIE Social History [...] to Optimize Self-Care Behaviors 90%(03/23/19 3:12 PM LINEN GRADER) Angelita Diaz RD Note: I will check [...] documented as of this encounter Care Teams Collaborative Teacher Relationship Specialty Start Date End Date Paula Reza MD [address] [facility] 200 [place] [address] PCP - General Internal Medicine 08/05/21 Roopa Almonte MD [address] [facility] 200 [place] [address] Endocrinology, Diabetes, and Metabolism 01/19/21 Maryse Burton, PAAna MariaC 5200 [place] [address] Physician Business Intelligence Consultant Dermatology 04/14/21 Roopa Almonte MD [address] [address] Hospitalist Endocrinology, Diabetes, and Metabolism 05/30/21 Griffin Joshi MD 6405 [facility] [address] [place] [address] Cardiovascular Disease 07/25/21 Roopa Almonte MD [address] [place] [address] 200 [place], [place] [address] Assigned Endocrinology Provider 09/10/21 [place] [address] [facility] 300 [place] [address] Assigned Musculoskeletal Provider 10/15/21 04/26/23 Daylin Ludwig EP [facility] [address] [address] Cardiac Rehabilitation Therapist 05/16/23 Daylin Ludwig EP [facility] [address] [address] Cardiac Rehabilitation Therapist 06/08/22 06/09/23 Marilin Montaño, PLASTIC CARD GRADER CARDROOM 6405 [place] [address] Assigned Heart and Vascular Provider 08/05/22 Esha Dewitt MD 420 [facility] 36 [place] [address] MD Gastroenterology 09/06/22 Heather Mosquera MD 6545 [facility] 150 [place] [address] Internal Medicine 09/06/22 Esha Dewitt MD [address] [address] Assigned Gastroenterology Provider 09/23/22 Valdo Escamilla PA-C 6363 [facility] 103 [place] [address] Assigned Neuroscience Provider 09/30/22 Nohelia Abarca PA-C 2450 [place] [address] Physician Business Intelligence Consultant Gastroenterology 10/03/22 Heather Mosquera MD [address] [facility] [address] [facility] 150 [place], [place] [address] Assigned PCP 01/06/23 Fawad York MD 909 [place], [place] [address] Assigned Musculoskeletal Provider 04/27/23 06/25/23 documented as of this encounter
--- OUTSIDE RECORDS SUMMARY | 2023-12-25 08:11 | XMS_ITS | Encounter Summary ---
Author Organization [place] Address [address] [place] [address] Care Team Providers Care Switch Maker Name Role Phone Roopa Almonte MD Unavailable [phone] Maryse Burton-C Unavailable Roopa Almonte MD Unavailable [phone] Griffin Joshi MD Unavailable Paula Reza MD Primary Care Provider Roopa Almonte MD Unavailable [phone] Augustine Callaway MD Unavailable Daylin Ludwig Unavailable Daylin Ludwig Unavailable [phone] Marilin Montaño PROCESSING TECHNICIAN Unavailable [phone] Esha Dewitt MD Unavailable [phone] Heather Mosquera MD Unavailable [phone] Esha Dewitt MD Unavailable [phone] Valdo Escamilla PA-C Unavailable [phone] Nohelia Abarca-C Unavailable [phone] Heather Mosquera MD Unavailable Fawad York MD Unavailable Encounter Details Date Type Department Care Team (Late st Contact Info) Description 01/29/2023 MyC Medical Advice [facility] Gastroenterology Clinic [address] 4th [place] [address] Rina Levin, KASIE Social History [...] to Optimize Self-Care Behaviors 90%(03/23/19 3:12 PM LABORATORY CLERK) Angelita Diaz RD Note: I will [...] documented as of this encounter Care Teams Switch Maker Relationship Specialty Start Date End Date Paula Reza MD [address] [facility] 200 [place] [address] PCP - General Internal Medicine 08/05/21 Roopa Almonte MD [address] [facility] 200 [place] [address] Endocrinology, Diabetes, and Metabolism 01/19/21 Maryse Burton, PAAna MariaC 5200 [place] [address] Physician Pest Control Operator Dermatology 04/14/21 Roopa Almonte MD [address] [address] Hospitalist Endocrinology, Diabetes, and Metabolism 05/30/21 Griffin Joshi MD 6405 [facility] [address] [place] [address] Cardiovascular Disease 07/25/21 Roopa Almonte MD [address] [place] [address] 200 [place], [place] [address] Assigned Endocrinology Provider 09/10/[address] [place] [address] [facility] 300 [place] [address] Assigned Musculoskeletal Provider 10/15/21 04/26/23 Daylin Ludwig EP [facility] [address] [address] Cardiac Rehabilitation Therapist 05/16/23 Daylin Ludwig EP [facility] [address] [address] Cardiac Rehabilitation Therapist 06/08/22 06/09/23 Marilin Montaño, PROCESSING TECHNICIAN 6405 [place] [address] Assigned Heart and Vascular Provider 08/05/22 Esha Dewitt MD 420 [facility] 36 [place] [address] MD Gastroenterology 09/06/22 Heather Mosquera MD 6545 [facility] 150 [place] [address] Internal Medicine 09/06/22 Esha Dewitt MD [address] [address] Assigned Gastroenterology Provider 09/23/22 Valdo Escamilla PA-C 6363 [facility] 103 [place] [address] Assigned Neuroscience Provider 09/30/22 Nohelia Abarca PA-C 2450 [place] [address] Physician Pest Control Operator Gastroenterology 10/03/22 Heather Mosquera MD [address] [facility] [address] [facility] 150 [place], [place] [address] Assigned PCP 01/06/23 Fawad York MD 909 [place], [place] [address] Assigned Musculoskeletal Provider 04/27/23 06/25/23 documented as of this encounter
--- OUTSIDE RECORDS SUMMARY | 2023-12-25 08:11 | XMS_ITS | Encounter Summary ---
Author Organization [place] Address [address] [place] [address] Care Team Providers Care Cyber Security Architect Name Role Phone Roopa Almonte MD Unavailable [phone] Maryse Burton PA-C Unavailable Roopa Almonte MD Unavailable [phone] Griffin Joshi MD Unavailable Paula Reza MD Primary Care Provider Roopa Almonte MD Unavailable Daylin Ludwig Unavailable Marilin Montaño CNP Unavailable [phone] Esha Dewitt MD Unavailable [phone] Heather Mosquera MD Unavailable [phone] Esha Dewitt MD Unavailable [phone] Valdo EscamillaC Unavailable [phone] Nohelia Abarca PA-C Unavailable [phone] Heather Mosquera MD Unavailable [phone] Encounter Details Date Type Department Care Team (Late st Contact Info) Description 10/31/2023 MyC Medical Advice [facility] Heart [address] [place] [phone] Elicia Metcalf, KASIE Social History Tobacco Use Types Packs/Day [...] Self-Care Behaviors No Angelita Pemberton RD Healthy Eating - follow a healthy [...] Optimize Self-Care Behaviors 90%(03/23/19 23 3:12 PM EQUIPMENT ENGINEER) Angelita Diaz RD Note: I will [...] documented as of this encounter Care Teams Cyber Security Architect Relationship Specialty Start Date End Date Paula Reza MD [address] [place] [address] PCP - General Internal Medicine 08/05/21 Roopa Almonte MD [address] [facility] 200 [place] [address] Endocrinology, Diabetes, and Metabolism 01/19/21 Maryse Burton, TRACEY [address] [place] [address] Physician Multimedia Technician Dermatology 04/14/21 Roopa Almonte MD [address] [facility] 200 [place] [address] Hospitalist Endocrinology, Diabetes, and Metabolism 05/30/21 Griffin Joshi MD [address] [facility] [address] [place] [id number] Cardiovascular Disease 07/25/21 Roopa Almonte MD [address] [facility] 200 [place], [place] [address] Assigned Endocrinology Provider 09/10/21 Daylin Ludwig EP [facility] [address] [place] [id number] Cardiac Rehabilitation Therapist 05/16/23 Marilin Montaño, E LEARNING DEVELOPER [address] [place] [id number] Assigned Heart and Vascular Provider 08/05/22 Esha Dewitt MD 420 [facility] 36 [place] [address] Gastroenterology 09/06/22 Heather Mosquera MD [address] [facility] [address] [facility] 150 [place] [id number] Internal Medicine 09/06/22 Esha Dewitt MD 420 [facility] 36 [place] [address] Assigned Gastroenterology Provider 09/23/22 Valdo Escamilla PA-C 6363 [facility] 103 [place] [address] Assigned Neuroscience Provider 09/30/22 Nohelia Abarca PA-C 2450 [place] [address] Physician Multimedia Technician Gastroenterology 10/03/22 Heather Mosquera MD [address] [facility] 150 [place], [place] [id number] Assigned PCP 01/06/23 documented as of this encounter
--- OUTSIDE RECORDS SUMMARY | 2023-12-25 08:11 | XMS_ITS | Encounter Summary ---
Author Organization [place] Address [address] [place] [address] Care Team Providers Care Junior Web Designer Name Role Phone Roopa Almonte MD Unavailable [phone] Maryse Burton PA-C Unavailable Roopa Almonte MD Unavailable [phone] Griffin Joshi MD Unavailable Paula Reza MD Primary Care Provider [phone] Roopa Almonte MD Unavailable [phone] Augustine Callaway MD Unavailable Daylin Ludwig Unavailable Daylin Ludwig Unavailable [phone] Marilin Montaño ELECTRICIAN TECHNICIAN Unavailable [phone] Esha Dewitt MD Unavailable [phone] Heather Mosquera MD Unavailable [phone] Paula Reza MD Unavailable Esha Dewitt MD Unavailable [phone] Valdo EscamillaC Unavailable [phone] Nohelia Abarca PA-C Unavailable [phone] Heather Mosquera MD Unavailable [phone] Fawad York MD Unavailable [phone] Encounter Details Date Type Department Care Team (Late st Contact Info) Description 10/13/2022 MyC Medical Advice [facility] [place] [address] [facility] 202 [place] [address] Yareli Flynn CMA Social History [...] Optimize Self-Care Behaviors 90%(03/23/19 23 3:12 PM VALUATION CONSULTANT) Angelita Diaz RD Note: I will [...] documented as of this encounter Care Teams Junior Web Designer Relationship Specialty Start Date End Date Paula Reza MD [address] [facility] 200 [place] [address] PCP - General Internal Medicine 08/05/21 Roopa Almonte MD [address] [facility] 200 [place] [address] Endocrinology, Diabetes, and Metabolism 01/19/21 Maryse Burton PA-C [address]200 [place] [address] Physician Bench Repair Technician Dermatology 04/14/21 Roopa Almonte MD [address] [facility] 200 [place] [address] Hospitalist Endocrinology, Diabetes, and Metabolism 05/30/21 Griffin Joshi MD [address] [facility] [address] [place] [id number] Cardiovascular Disease 07/25/21 Roopa Almonte MD [address] [facility] 200 [place], [place] [address] Assigned Endocrinology Provider 09/10/21 [place] [address] [facility] 300 [place] [address] Assigned Musculoskeletal Provider 10/15/21 04/26/23 Daylin Ludwig EP [facility] [address] [place] [place] [address] Cardiac Rehabilitation Therapist 05/16/23 Daylin Ludwig EP [facility] [address] [place] [id number] Cardiac Rehabilitation Therapist 06/08/22 06/09/23 Marilin oMntaño, ELECTRICIAN TECHNICIAN [address] [address] Assigned Heart and Vascular Provider 08/05/22 Esha Dewitt MD 420 [facility] 36 [place] [address] Gastroenterology 09/06/22 Heather Mosquera MD [address] [place] [address] Internal Medicine 09/06/22 Paula Reza MD [address] [facility] 200 [place] [address] Assigned PCP 09/09/22 01/05/23 Esha Dewitt MD 420 [facility] 36 [place] [address] Assigned Gastroenterology Provider 09/23/22 Valdo Escamilla PA-C [address] [place], [place] [address] Assigned Neuroscience Provider 09/30/22 Nohelia Abarca PA-C [address] [place], [place] [address] Physician Bench Repair Technician Gastroenterology 10/03/22 Heather Mosquera MD [address] [id number] Assigned PCP 01/06/23 Fawad York MD 909 [place] [address] Assigned Musculoskeletal Provider 04/27/23 06/25/23 documented as of this encounter
--- OUTSIDE RECORDS SUMMARY | 2023-12-25 08:11 | XMS_ITS | Referral Summary ---
Author Organization [place] Address [address] [place] [address] Care Team Providers Care Land Development Manager Name Role Phone Roopa Almonte MD Unavailable Maryse Burton PA-C Unavailable Roopa Almonte MD Unavailable Griffin Joshi MD Unavailable Paula Reza MD Primary Care Provider Roopa Almonte MD Unavailable Daylin Ludwig Unavailable Marilin Montaño PATIENT COORDINATOR Unavailable [phone] Esha Dewitt MD Unavailable [phone] Heather Mosquera MD Unavailable [phone] Esha Dewitt MD Unavailable [phone] Valdo EscamillaC Unavailable [phone] Nohelia Abarca PA-C Unavailable [phone] Heather Mosquera MD Unavailable Encounters Date Type Department Care Team Description 10/31/2023 MyC Medical Advice [facility] [address] [facility] [address] [place] [phone] Elicia Metcalf, KASIE 10/31/2023 Orders Only M [facility] [address] [facility] [address] [place] [phone] Elicia Metcalf, orderlies teacher systolic congestive heart failure (H); HTN, goal below 140/90 10/30/2023 Refill M [facility] [address] [facility] [address] [place] [phone] Marilin Montaño, PATIENT COORDINATOR Refill Request (Amiodarone) from Last 3 Months Allergies Active Allergy Reactions Criticality Noted Date [...] MG sublingual tabletIndications: Coronary artery disease involving yurok coronary artery of yurok heart without angina pectoris For chest pain [...] 75 MG tabletIndications: Coronary artery disease involving yurok coronary artery 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 Appointment needed for additional refills. Please call [phone] to schedule. 90 tablet 10/30/2023 Active sacubitril-valsart [...] 81 mg. 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 Overview: VICE PRESIDENT FIXED INCOME:06/10/2019 SR Esophageal reflux 10/06/2003 Resolved Problems Problem [...] Comments Blood Pressure 123/70 02/14/2023 1:45 PM FIELD SERVICE TECHNICIAN POULTRY Pulse 80 02/14/2023 1:45 PM FIELD SERVICE TECHNICIAN POULTRY Temperature 36.8 ??C (98.3 ??F) 07/08/2022 7:41 AM CD T Respiratory Rate 20 02/14/2023 1:45 PM FIELD SERVICE TECHNICIAN POULTRY Oxygen Saturation 94% 02/14/2023 1:45 PM FIELD SERVICE TECHNICIAN POULTRY Inhaled Oxygen Concentration - - Weight 117.9 [...] to Optimize Self-Care Behaviors 90%(03/23/19 3:12 PM FIELD SERVICE TECHNICIAN POULTRY) Angelita Diaz RD Note: I will check [...] Diaz RD Medical Devices Implanted Type Area Power Plant Superintendent Device Identifier Shelf Expiration Date Model / Serial / Lot Medtronic I* [id number] [place] Xt Hf Quad Bone Drier Operator-D Mri [id number] Implanted:03/17 (Quantity not on file) ICD [employer] [id number] C OBALT XT HF QUAD PLASTIC FIXTURE BUILDER-D MRI / [id number] / Medtronic I* 4298 Attain Performa Mri Surescan [id number] Implanted:03/17 (Quantity not on file) Leads [employer] 4298 CLAUDY IN PERFORMA MRI SURESCAN / [id number] / Medtronic I* 5076 Capsurefix Novus [id number] Implanted:03/17 (Quantity not on file) Leads [employer] 5076 CAPS UREFIX NOVUS / [id number] / Medtronic I* 6935 Sprint Quattro Secure S [id number] Implanted:03/17 (Quantity not on file) Leads [employer] 6935 SPRI NT QUATTRO SECURE S / [id number] / Procedures Procedure Name Priority Date/Time Associated Diagnosis Comments CBC WITH PLATELETS STAT 02/14/2023 10 :20 AM FIELD SERVICE TECHNICIAN POULTRY BASIC METABOLIC PANEL Routine 07/08/2022 7:24 AM CDT COMPREHENSIVE METABOLIC PANEL Routine 07/07/2022 10:33 AM CDT EYE EXAM - HIM SCAN 04/13/2022 1 2:00 AM FIELD SERVICE TECHNICIAN POULTRY LIPID PROFILE Routine 02/15/2022 10:03 AM FIELD SERVICE TECHNICIAN POULTRY Chronic systolic congestive heart failure (H) HTN, goal below 140/90 COLOGUARD(Live Mobile SCIENCES) Routine 01/24/2022 12:00 PM FIELD SERVICE TECHNICIAN POULTRY Screen for colon cancer HEMOGLOBIN A1C Routine 01/10/2022 9:45 AM FIELD SERVICE TECHNICIAN POULTRY Type 2 diabetes mellitus with diabetic nephropathy, [...] (ABNORMAL) CBC with platelets (02/14/2023 10:20 AM FIELD SERVICE TECHNICIAN POULTRY) WBC Count 10.9 4.0 - 11.0 10e3/uL 02/14/2023 10:33 AM FIELD SERVICE TECHNICIAN POULTRY [facility] RBC Count 4.72 4.40 - 5.90 10e6/uL 02/14/2023 10:33 AM FIELD SERVICE TECHNICIAN POULTRY [facility] Hemoglobin 10.4(L) 13.3 - 17.7 g/dL 02/14/2023 10:33 AM FIELD SERVICE TECHNICIAN POULTRY [facility] Hematocrit 34.3(L) 40.0 - 53.0 % 02/14/2023 10:33 AM FIELD SERVICE TECHNICIAN POULTRY [facility] MCV 73(L) 78 - 100 fL 02/14/2023 10:33 AM FIELD SERVICE TECHNICIAN POULTRY [facility] MCH 22.0(L) 26.5 - 33.0 pg 02/14/2023 10:33 AM FIELD SERVICE TECHNICIAN POULTRY [facility] MCHC 30.3(L) 31.5 - 36.5 g/dL 02/14/2023 10:33 AM FIELD SERVICE TECHNICIAN POULTRY [facility] RDW 16.5(H) 10.0 - 15.0 % 02/14/2023 10:33 AM FIELD SERVICE TECHNICIAN POULTRY [facility] Platelet Count 400 150 - 450 10e3/uL 02/14/2023 10:33 AM [facility]ORATORY Blood BLOOD SPECIMEN / Unknown Intraosseous / Unknown 02/14/2023 10:20 AM FIELD SERVICE TECHNICIAN POULTRY 02/14/2023 10:29 AM [facility] VALUATION MANAGER PATIENT COORDINATOR LAB - BLOOD ORDERABLES LABORATORY [facility] Acute [facility] Lab [address] Lab (1st floor, no room number) [place] [address], [facility] [phone] * (ABNORMAL) Basic metabolic panel (07/08/2022 7:24 AM CDT) Sodium 137 136 - 145 mmol/L 07/08/2022 7:53 AM CDT LABORATORY Potassium 4.2 3.4 - 5.3 mmol/L 07/08/2022 7:53 AM T LABORATORY Chloride 105 98 - 107 mmol/L [...] 8.8 - 10.2 mg/dL 07/08/2022 7:53 AM T LABORATORY Glucose 141(H) 70 - 99 mg/dL 07/08/2022 7:53 AM CDT LABORATORY GFR Estimate >90 >60 mL/min/1.7 3m2 07/08/2022 7:53 AM CDT LABORATORY Comment:eGFR calculated usin g 2020 CKD-EPI equation. Blood STRUCTURE OF RIGHT UPPER LIMB / Unknown Venipuncture / Unknown 07/08/2022 7:24 AM CDT 07/08/2022 7:32 AM CDT Meir Lovell MD LAB - BLOOD DENISA AREVALO LABORATORY [facility] Lab [address] [facility] Lab (1st floor, no room number) [place] [address], [facility] [phone] * (ABNORMAL) Comprehensive metabolic panel (07/07/2022 10:33 [...] 0.2 <=1.2 mg/dL 07/07/2022 10:59 AM CDT [facility] GFR Estimate >90 >60 mL/min/1.7 3m2 07/07/2022 10:59 AM CDT [facility] Comment:eGFR calculated usin 2020 CKD-EPI equation. Blood STRUCTURE OF RIGHT HAND / Unknown Venipuncture / Unknown 07/07/2022 10:33 AM CDT 07/07/2022 10:41 AM CDT Luis Alcaraz MD LAB - BLOOD ORDERABL ES RH LABORATORY [facility] Lab [address] [facility] Lab (1st floor, no room number) [place] [address], [facility] [phone] * (ABNORMAL) EYE EXAM - HIM SCAN (04/13/2022 12:00 AM FIELD SERVICE TECHNICIAN POULTRY) RETINOPATHY POSITIVE(A ) 04/13/2022 Provider Outside OTHER * (ABNORMAL) Lipid Profile (02/15/2022 10:03 AM FIELD SERVICE TECHNICIAN POULTRY) Cholesterol 178 <200 mg/dL 02/15/2022 3:56 PM FIELD SERVICE TECHNICIAN POULTRY [facility] Triglycerides 285(H) <150 mg/dL 02/15/2022 3:56 PM FIELD SERVICE TECHNICIAN POULTRY [facility] Direct Measure HDL 34(L) >=40 mg/dL 02/15/2022 3:56 PM FIELD SERVICE TECHNICIAN POULTRY [facility] LDL Cholesterol Calculated 87 <=100 mg/dL 02/15/2022 3:56 PM FIELD SERVICE TECHNICIAN POULTRY [facility] Non HDL Cholesterol 144(H) <130 mg/dL 02/15/2022 3:56 PM FIELD SERVICE TECHNICIAN POULTRY [facility] Blood STRUCTURE OF RIGHT UPPER LIMB / Unknown Venipuncture / Unknown 02/15/2022 10:03 AM FIELD SERVICE TECHNICIAN POULTRY 02/15/2022 10:03 AM FIELD SERVICE TECHNICIAN POULTRY Narrative [facility] - 02/15/2022 3:56 PM FIELD SERVICE TECHNICIAN POULTRY Cholesterol Desirable: ??<200 mg/dL Triglycerides Normal: ??Less [...] equal to 220 mg/dL Keerthi Miner APRN PATIENT COORDINATOR LAB - BLOOD ORDERABLES LABORATORY [facility] Core Lab [address] [facility], Room [address] [address] [phone] * (ABNORMAL) COLOGUARD(bitHound) (01/24/2022 12:00 PM FIELD SERVICE TECHNICIAN POULTRY) [facility] COLOGUARD-ABSTRAC T Positive( A) Negative 01/29/2022 7:20 AM FIELD SERVICE TECHNICIAN POULTRY [facility] (CLIA #:[id number]) Comment: POSITIVE TEST RESULT. A positive Cologuard [...] (Chelo Echeverria al, N Engl J Med 2014;370(14):5329-2309.) Cologuard may produce a false negative or false positive result (no colorectal cancer or precancerous polyp present at colonoscopy follow up). A negative Cologuard test result does not guarantee the absence of CRC or advanced adenoma (pre-cancer). The current Cologuard screening interval is every 3 years. ([place] [employer] Society and U.S. Multi-Society Task Force). Cologuard performance data in a 10,000 patient pivotal study using colonoscopy as the reference method can be accessed at the following location: www.Cinemad.tv/results. Additional description of the Cologuard test process, warnings and precautions can be found at www.t-Artrd.CoverMe. Stool specimen (specimen) 01/24/2022 12:00 PM FIELD SERVICE TECHNICIAN POULTRY 01/25/2022 1:01 PM FIELD SERVICE TECHNICIAN POULTRY Paula Reza MD LABORATORY [facility] [address] [phone] [facility] (CLIA #:[id number]) [address] [place] [address] * (ABNORMAL) Hemoglobin A1c (01/10/2022 9:45 AM FIELD SERVICE TECHNICIAN POULTRY) Hemoglobin A1C 8.9(H) 0.0 - 5.6 % 01/10/2022 9:52 AM FIELD SERVICE TECHNICIAN POULTRY [facility] Comment: Normal <5.7% Prediabetes 5.7-6.4% ?? Diabetes 6.5% or higher Note: Adopted from ADA consensus guidelines. Blood STRUCTURE OF RIGHT UPPER LIMB / Unknown Venipuncture / Unknown 01/10/2022 9:45 AM FIELD SERVICE TECHNICIAN POULTRY 01/10/2022 9:45 AM FIELD SERVICE TECHNICIAN POULTRY Narrative [facility] - 01/10/2022 9:52 AM FIELD SERVICE TECHNICIAN POULTRY Reviewed, ok with previous. Roopa Almonte MD LAB - BLOOD ORDER KEVIN AL LABORATORY [facility] [address] [facility] [facility] [place] [address], [facility] [phone] * CT Angiogram TAVR (12/27/2021 4:02 PM [...] dissection, intramural hematoma, or contained rupture. MEASUREMENTS: Bottle Dealer dimensions of the thoracoabdominal aorta are as follows: 1. AORTIC ANNULUS MEASUREMENTS: * ??The average aortic annulus diameter is 27.8 mm, * ??Aortic annulus area is 6.07 cm2 * ??Aortic annulus perimeter is 92.4 mm * ??The 3 cusp coaxial angle for aortic valve is (OCAMPO 8 , APRICOT WASHER 6) these angles will vary depending upon [...] in a spiral gated mode with limited oyxye-qj-uvnu followed by gated high pitch spiral CTA of the chest, abdomen, pelvis at 120 kVP to evaluate the thoracoabdominal aorta and iliac vasculature. Scan protocol was optimized to minimize radiation exposure. The total radiation exposure was 1409 DLP and 19.7 mSv. Images were reconstructed and analyzed on a [employer] Workstation. Procedure Note Sidney Chan MD - [...] in a spiral gated mode with limited geovm-rk-bjcu followed by gated high pitch spiral CTA of the chest, abdomen, pelvis at 120 kVP to evaluate the thoracoabdominal aorta and iliac vasculature. Scan protocol was optimized to minimize radiation exposure. The total radiation exposure was 1409 DLP and 19.7 mSv. Images were reconstructed and analyzed on a [employer] Workstation. IMPRESSION: 1. No acute aortic pathology [...] dissection, intramural hematoma, or contained rupture. MEASUREMENTS: Bottle Dealer dimensions of the thoracoabdominal aorta are as follows: 1. AORTIC ANNULUS MEASUREMENTS: * The average aortic annulus diameter is 27.8 mm, * Aortic annulus area is 6.07 cm2 * Aortic annulus perimeter is 92.4 mm * The 3 cusp coaxial angle for aortic valve is (OCAMPO 8 , APRICOT WASHER 6) these angles will vary depending upon [...] AM CDT 10/03/2021 8:13 AM CDT Keerthi Vazquez Joeletty VALUATION MANAGER PATIENT COORDINATOR LAB - BLOOD ORDERABLES [facility] Acute Care Lab [address] [facility] Lab (1st floor, no room number) [place] [address], [place] [phone] * Albumin Random Urine Quantitative with Creat [...] Aguayo PA-C LAB - URINE ORDERA BLES [facility] [address] Lab (no room number, 1st floor of clinic) [place] [address], [place] [phone] * HIV Antigen Antibody Combo (06/04/2020 2:43 PM CDT) HIV Antigen Antibody Combo Nonreactive NR^Nonrea ctive 06/04/2020 8:30 PM CDT [facility] Comment:HIV-1 p24 Ag & HIV-1 /HIV-2 Ab Not Detected Blood 06/04/2020 2:43 PM CDT 06/04/2020 2:44 PM CDT Shahida Sutton APRN PATIENT COORDINATOR LAB - BLOOD ORDERABLES [facility] [address] [place] [address] * Hepatitis C Screen Reflex to HCV RNA Quant and Genotype (06/04/2020 2:43 PM CDT) Hepatitis C Antibody Nonreactive NR^Nonre active 06/04/2020 8:38 PM CDT [facility] Comment: Assay performance characteristics have not been established for newborns, infants, and children Blood 06/04/2020 2:43 PM CDT 06/04/2020 2:44 PM CDT Shahida Sutton APRN PATIENT COORDINATOR LAB - BLOOD ORDERABLES Performing Organization Address City/[facility]/ZIP Co de Phone Number [address] [address] * PHQ-9 DEPRESSION SCREENING ORDER (05/01/2018) PHQ9 SCORE 5 Narrative [place] r[place]owe - 05/01/2018 [facility] PROGRESS NOTE Provider Outside OTHER * Fecal colorectal cancer screen (FIT) (10/05/2016 10:45 AM CDT) Occult Blood Scn FIT Negative NEG [facility] Stool specimen (specimen) 10/05/2016 10:45 AM CDT 10/11/2016 11:00 AM CDT Shahida Sutton APRN, CNP LAB - STOOL S ORDERABLES [facility] [address] [place] [address] from Last 3 Months or Most Recently Relevant to Health Maintenance Additional Health Concerns Active Problems Noted Date Diagnosed Date HbA1C Not In Goal 02/23/2022 Diabetes Self-Management Edu cation Needed to Optimize Self-Care Behaviors 02/23/2022 Infection Onset Date Last Indicated ESBL 01/05/2021 01/05/2021 Advance Directives For more information, please contact: [phone] * Full Code (Latest Code Status on [...] patie nt/ legal decision maker Care Teams Land Development Manager Relationship Specialty Start Date End Date Paula Reza MD [address] [place], [place] [id number] PCP - General Internal Medicine 08/05/21 Roopa Almonte MD [address] [facility] 200 [place], [place] [address] Endocrinology, Diabetes, and Metabolism 01/19/21 Maryse Burton PA-C [address] [place], [place] [id number] Physician Health Care Social Worker Dermatology 04/14/21 Roopa Almonte MD [address] [facility] [address] [place], [place] [address] Hospitalist Endocrinology, Diabetes, and Metabolism 05/30/21 Griffin Joshi MD [address] [facility] [address] [place] [id number] Cardiovascular Disease 07/25/21 Roopa Almonte MD [address] [place], [place] [address] Assigned Endocrinology Provider 09/10/21 Daylin Ludwig EP [facility] [address] [place] [id number] Cardiac Rehabilitation Therapist 05/16/23 Marilin Montaño PATIENT COORDINATOR [address] [place] [id number] Assigned Heart and Vascular Provider 08/05/22 Esha Dewitt MD [address] [facility] 36 [place], [place] [address] Gastroenterology 09/06/22 Heather Mosquera MD [address] [facility] [address] [place] [id number] Internal Medicine 09/06/22 Esha Dewitt MD [address] [facility] 36 [place], [place] [address] Assigned Gastroenterology Provider 09/23/22 Valdo Escamilla PA-C [address] [facility] [address] [place], [place] [phone] Assigned Neuroscience Provider 09/30/22 Nohelia Abarca PA-C [address] [facility] [address] [place], [place] [address] Physician Health Care Social Worker Gastroenterology 10/03/22 Heather Mosquera MD [address] [facility] 150 [place], [place] [address] Assigned PCP 01/06/23
--- OUTSIDE RECORDS SUMMARY | 2023-12-25 08:11 | XMS_ITS | Encounter Summary ---
Author Organization [place] Address [address] [place] [address] Care Team Providers Care C 13 Catapult Operator Name Role Phone Roopa Almonte MD Unavailable [phone] Maryse Burton PA-C Unavailable Roopa Almonte MD Unavailable [phone] Griffin Joshi MD Unavailable Paula Reza MD Primary Care Provider [phone] Roopa Almonte MD Unavailable [phone] Augustine Callaway MD Unavailable Daylin Ludwig Unavailable Daylin Ludwig Unavailable [phone] Marilin Montaño FUEL TRUCK DRIVER Unavailable [phone] Esha Dewitt MD Unavailable [phone] Heather Mosquera MD Unavailable [phone] Paula Reza MD Unavailable Esha Dewitt MD Unavailable [phone] Valdo EscamillaC Unavailable [phone] Nohelia Abarca PA-C Unavailable [phone] Heather Mosquera MD Unavailable [phone] Fawad York MD Unavailable Encounter Details Date Type Department Care Team (Late st Contact Info) Description 11/20/[address] [facility] [address] [facility] [address] [place] [address] [...] Optimize Self-Care Behaviors 90%(03/23/19 23 3:12 PM TELECOMMUNICATION EQUIPMENT REPAIRER) Angelita Diaz RD Note: I will check my blood sugars 3x per day at meal times Taking Medication - patient is consistently taking medications as directed Care Plan Diabetes Self-Management Education Needed to Optimize Self-Care Behaviors Aneglita Diaz RD Note: Reviewed importance of following [...] documented as of this encounter Care Teams C 13 Catapult Operator Relationship Specialty Start Date End Date Paula Reza MD [address] [facility] 200 [place], [place] [address] PCP - General Internal Medicine 08/05/21 Roopa Almonte MD [address] [facility] [facility] 200 [place] [address] Endocrinology, Diabetes, and Metabolism 01/19/21 Maryse Burton PA-C 5200 [place] [address] Physician Farmer Diversified Crops Dermatology 04/14/21 Roopa Almonte MD [address] [facility] 200 [place] [address] Hospitalist Endocrinology, Diabetes, and Metabolism 05/30/21 Griffin Joshi MD [address] [facility] [address] [place] [address] Cardiovascular Disease 07/25/21 Roopa Almonte MD [address] 200 [place], [place] [address] Assigned Endocrinology Provider 09/10/21 [place] [address] [facility] 300 [place] [address] Assigned Musculoskeletal Provider 10/15/21 04/26/23 Daylin Ludwig EP [facility] [address] [address] Cardiac Rehabilitation Therapist 05/16/23 Daylin Ludwig EP [facility] [address] [place] [address] Cardiac Rehabilitation Therapist 06/08/22 06/09/23 Marilin Montaño CNP [address] [place] [address] Assigned Heart and Vascular Provider 08/05/22 Esha Dewitt MD 420 [facility] 36 [place] [address] MD Gastroenterology 09/06/22 Heather Mosquera MD [address] [place] [address] Internal Medicine 09/06/22 Paula Reza MD [address] 200 [place], [place] [address] Assigned PCP 09/09/22 01/05/23 Esha Dewitt MD 420 [facility] 36 [place] [address] Assigned Gastroenterology Provider 09/23/22 Valdo Escamilla PA-C [address] [place] [address] Assigned Neuroscience Provider 09/30/22 Nohelia Abarca PA-C [address] [place] [address] Physician Farmer Diversified Crops Gastroenterology 10/03/22 Heather Mosquera MD [address] [facility] [address] [place] [address] Assigned PCP 01/06/23 Fawad York MD 9 [place] [address] Assigned Musculoskeletal Provider 04/27/23 06/25/23 documented as of this encounter
--- OUTSIDE RECORDS SUMMARY | 2023-12-25 08:12 | XMS_ITS | Encounter Summary ---
Author Organization [place] Address [address] [place] [address] Care Team Providers Care Tape Fastener 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 Name Role Phone Roopa Almonte MD Unavailable [phone] Maryse Burton PA-C Unavailable Roopa Almonte MD Unavailable [phone] Griffin Joshi MD Unavailable Paula Reza MD Primary Care Provider [phone] Roopa Almonte MD Unavailable [phone] Augustine Callaway MD Unavailable Daylin Ludwig Unavailable Daylin Ludwig Unavailable [phone] Marilin Montaño HEEL BUILDER Unavailable [phone] Esha Dewitt MD Unavailable [phone] Heather Mosquera MD Unavailable [phone] Paula Reza MD Unavailable Esha Dewitt MD Unavailable [phone] Valdo EscamillaC Unavailable [phone] Nohelia Abarca PA-C Unavailable [phone] Heather Mosquera MD Unavailable [phone] Fawad York MD Unavailable Encounter Details Date Type Department Care Team (Late st Contact Info) Description 10/05/2022 MyC Medical Advice [facility] [address] 4th [place] [address] Amy De La Cruz Social [...] to Optimize Self-Care Behaviors 90%(03/23/19 3:12 PM TUNGSTEN TENDER) Angelita Diaz RD Note: I will check [...] documented as of this encounter Care Teams Tape Fastener 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 Relationship Specialty Start Date End Date Paula Reza MD [address] [facility] 200 [place], [place] [address] PCP - General Internal Medicine 08/05/21 Roopa Almonte MD [address] [facility] 200 [place] [address] Endocrinology, Diabetes, and Metabolism 01/19/21 Maryse Burton PA-C 5200 [place] [address] Physician Shoe Stitcher Dermatology 04/14/21 Roopa Almonte MD [address] [facility] 200 [place] [address] Hospitalist Endocrinology, Diabetes, and Metabolism 05/30/21 Griffin Joshi MD [address] [facility] [address] [place] [address] Cardiovascular Disease 07/25/21 Roopa Almonte MD [address] [place] [address] 200 [place], [place] [address] Assigned Endocrinology Provider 09/10/21 [place] [address] [facility] 300 [place] [address] Assigned Musculoskeletal Provider 10/15/21 04/26/23 Daylin Ludwig EP [facility] [address] [address] Cardiac Rehabilitation Therapist 05/16/23 Daylin Ludwig EP [facility] [address] [place] 6[address] Cardiac Rehabilitation Therapist 06/08/22 06/09/23 Marilin Montaño HEEL BUILDER [address] 838765 Assigned Heart and Vascular Provider 08/05/22 Esha Dewitt MD [address] [address] MD Gastroenterology 09/06/22 Heather Mosquera MD [address] [facility] [address] [facility] 150 [place], [place] [address] Internal Medicine 09/06/22 Paula Reza MD 303 E [facility] 200 [place], [place] [address] Assigned PCP 09/09/22 01/05/23 Esha Dewitt MD [address] [address] Assigned Gastroenterology Provider 09/23/22 Valdo Escamilla PA-C [address] [facility] [address] [place], [place] [address] Assigned Neuroscience Provider 09/30/22 Nohelia Abarca PA-C [address] [place], [place] [address] Physician Shoe Stitcher Gastroenterology 10/03/22 Heather Mosquera MD [address] [address] Assigned PCP 01/06/23 Fawad York MD 9 [place], [place] [address] Assigned Musculoskeletal Provider 04/27/23 06/25/23 documented as of this encounter
--- OUTSIDE RECORDS SUMMARY | 2023-12-25 08:12 | XMS_ITS | Encounter Summary ---
Author Organization [place] Address [address] [place] [address] Care Team Providers Care [place] Program Coordinator Name Role Phone Roopa Almonte MD Unavailable [phone] Maryse Burton PA-C Unavailable [phone] Roopa Almonte MD Unavailable [phone] Griffin Joshi MD Unavailable Paula Reza MD Primary Care Provider [phone] Roopa Almonte MD Unavailable [phone] Augustine Callaway MD Unavailable Daylin Ludwig EP Unavailable Daylin Ludwig EP Unavailable [phone] Shahida Sutton APRN CIGARETTE PACKAGE EXAMINER Unavailable Un available Marilin Montaño CIGARETTE PACKAGE EXAMINER Unavailable [phone] Esha Dewitt MD Unavailable [phone] Heather Mosquera MD Unavailable [phone] Paula Reza MD Unavailable Esha Dewitt MD Unavailable [phone] Valdo Escamilla PA-C Unavailable [phone] Nohelia Abarca PA-C Unavailable [phone] Heather Mosquera MD Unavailable Fawad York MD Unavailable [phone] Reason for Visit * Reason Onset Date Comments Appointment 08/25/2022 Reschedule Surge ry Encounter Details Date Type Department Care Team (Late st Contact Info) Description 08/25/2022 Telephone [facility] [place] [address] [facility] [address] [place] [address] Kim Romo MD [address] [facility] [address] [place] [address] Appointment (Reschedule [...] Optimize Self-Care Behaviors 90%(03/23/19 23 3:12 PM SCREEN PRINTING MACHINE OPERATOR HELPER) Angelita Diaz RD Note: I will check [...] documented as of this encounter Care Teams [place] Program Coordinator Relationship Specialty Start Date End Date Paula Reza MD [address] [facility] [place] [address] [address] PCP - General Internal Medicine 08/05/21 Roopa Almonte MD [address] [address] Endocrinology, Diabetes, and Metabolism 01/19/21 Maryse Burton, PA-C 5200 [place] [address] Physician Asp Net Mvc Developer Dermatology 04/14/21 Roopa Almonte MD [address] [facility] 200 [place] [address] Hospitalist Endocrinology, Diabetes, and Metabolism 05/30/21 Griffin Joshi MD [address] [facility] [address] [place] [address] Cardiovascular Disease 07/25/21 Roopa Almonte MD [address] [facility] 200 [place] [address] Assigned Endocrinology Provider 09/10/21 [place] [address] [facility] 300 [place] [address] Assigned Musculoskeletal Provider 10/15/21 04/26/23 Daylin Ludwig EP [facility] [address] [address] Cardiac Rehabilitation Therapist 05/16/23 Daylin Ludwig EP [facility] [address] [address] Cardiac Rehabilitation Therapist 06/08/22 06/09/23 Shahida Sutton APRN CIGARETTE PACKAGE EXAMINER Assigned PCP 07/08/22 09/08/22 Marilin Montaño CNP [address] [address] Assigned Heart and Vascular Provider 08/05/22 Esha Dewitt MD 420 [facility] 36 [place] [address] MD Gastroenterology 09/06/22 Heather Mosquera MD [address] 150 [place], [place] [address] Internal Medicine 09/06/22 Paula Reza MD 303 [address] [facility] 200 [place], [place] [address] Assigned PCP 09/09/22 01/05/23 Esha Dewitt MD 420 [facility] 36 [place], [place] [address] Assigned Gastroenterology Provider 09/23/22 Valdo Escamilla PA-C [address] [facility] 103 [place], [place] [address] Assigned Neuroscience Provider 09/30/22 Nohelia Abarca PA-C 2450 [facility] [place], [place] [address] Physician Asp Net Mvc Developer Gastroenterology 10/03/22 Heather Mosquera MD [address] [place], [place] [address] Assigned PCP 01/06/23 Fawad York MD 909 [place], [place] [address] Assigned Musculoskeletal Provider 04/27/23 06/25/23 documented as of this encounter
--- OUTSIDE RECORDS SUMMARY | 2023-12-25 08:12 | XMS_ITS | Encounter Summary ---
Author Organization [place] Address [address] [place] [address] Care Team Providers Care Controlled Area Checker Name Role Phone Roopa Almonte MD Unavailable [phone] Maryse Burton PA-C Unavailable [phone] Roopa Almonte MD Unavailable [phone] Griffin Joshi MD Unavailable Rina Magallon RN Unavailable [phone] Paula Reza MD Primary Care Provider [phone] Roopa Almonte MD Unavailable [phone] Rosa Maria Love Unavailable [phone] Augustine Callaway MD Unavailable Porsha Michaels APRN CHRISTMAS TREE CONTRACTOR Unavailable [phone] Shahida Sutton APRN CHRISTMAS TREE CONTRACTOR Unavailable Un available Daylin Ludwig Unavailable [phone] Laurel Velasquez MD Unavailable [phone] Daylin Ludwig Unavailable [phone] Paula Reza MD Unavailable Porsha Michaels APRN CHRISTMAS TREE CONTRACTOR Unavailable RonArelyyemi Sands MD Unavailable [phone] Shahida Sutton APRN CHRISTMAS TREE CONTRACTOR Unavailable Un available Marilin Montaño CHRISTMAS TREE CONTRACTOR Unavailable Esha Dewitt MD Unavailable [phone] EvelineHeather pastrana MD Unavailable Puala Reza MD Unavailable Esha Dewitt MD Unavailable [phone] Valdo Escamilla PA-C Unavailable Nohelia Abarca-C Unavailable Heather Mosquera MD Unavailable Fawad York MD Unavailable [phone] Encounter Details Date Type Department Care Team (Late st Contact Info) Description 05/02/2022 [facility] [address] [address] Alexa Madden Social History Tobacco [...] Coronavirus/COVID-19? No / Unsure 05/02/2022 3:45 PM MANAGER SUPPLY CHAIN documented as of this encounter Plan of [...] Optimize Self-Care Behaviors 90%(03/23/19 3:12 PM MANAGER SUPPLY CHAIN) Aneglita Diaz RD Note: I will check my [...] documented as of this encounter Care Teams Controlled Area Checker Relationship Specialty Start Date End Date Paula Reza MD [address] [facility] 200 [place], [place] [address] PCP - General Internal Medicine 08/05/21 Roopa Almonte MD 303 E [facility] 200 [place], [place] [address] Endocrinology, Diabetes, and Metabolism 01/19/21 Maryse Burton, PA-C 5200 [place] [address] Physician Dry Chain Offbearer Dermatology 04/14/21 Roopa Almonte MD 303 E [facility] 200 [place] [address] Hospitalist Endocrinology, Diabetes, and Metabolism 05/30/21 Griffin Joshi MD [address] [place] [address] Cardiovascular Disease 07/25/21 Rina Magallon, RN Lead Field Sales Associate 07/29/21 07/11/22 Roopa Almonte MD [address] [facility] 200 [place], [place] [address] Assigned Endocrinology Provider 09/10/21 Rosa Maria Love, CHW Community Health Worker 10/06/21 07/11/22 [place] [address] [facility] 300 [place] [address] Assigned Musculoskeletal Provider 10/15/21 04/26/23 Porsha Michaels APRN CHRISTMAS TREE CONTRACTOR [address] [address] Assigned Heart and Vascular Provider 02/11/22 05/12/22 Shahida Sutton APRN CHRISTMAS TREE CONTRACTOR [address] [address] Assigned PCP 04/08/22 06/30/22 Daylin Ludwig EP [facility] [address] [address] Cardiac Rehabilitation Therapist 05/16/23 Laurel Velasquez MD [address] [address] Assigned Heart and Vascular Provider 05/13/22 06/30/22 Daylin Ludwig EP [facility] [address] [address] Cardiac Rehabilitation Therapist 06/08/22 06/09/23 Paula Reza MD [address] 200 [place] [address] Assigned PCP 07/01/22 07/07/22 Porsha Michaels APRN CHRISTMAS TREE CONTRACTOR [address] [place] [address] Assigned Heart and Vascular Provider 07/01/22 07/07/22 Laurel Velasquez MD [address] [place] [address] Assigned Heart and Vascular Provider 07/08/22 08/04/22 Shahida Sutton APRN CHRISTMAS TREE CONTRACTOR Assigned PCP 07/08/22 09/08/22 Marilin Montaño, CHRISTMAS TREE CONTRACTOR [address] [place] [address] Assigned Heart and Vascular Provider 08/05/22 Esha Dewitt MD [address] [place] [address] Gastroenterology 09/06/22 Heather Mosquera MD [address] [place] [address] Internal Medicine 09/06/22 Paula Reza MD [address] 200 [place] [address] Assigned PCP 09/09/22 01/05/23 Esha Dewitt MD [address] [place] [address] Assigned Gastroenterology Provider 09/23/22 Valdo Escamilla PA-C 6363 [facility] 103 [place], [place] [address] Assigned Neuroscience Provider 09/30/22 Nohelia Abarca PA-C 2450 [place], [place] [address] Physician Dry Chain Offbearer Gastroenterology 10/03/22 Heather Mosquera MD 6545 [facility] 150 [place], [place] [address] Assigned PCP 01/06/23 Fawad York MD 909 [place], [place] [address] Assigned Musculoskeletal Provider 04/27/23 06/25/23 documented as of this encounter
--- OUTSIDE RECORDS SUMMARY | 2023-12-25 08:12 | XMS_ITS | Encounter Summary ---
Author Organization [place] Address [address] [place] [address] Care Team Providers Care Community Arts Worker Name Role Phone Roopa Almonte MD Unavailable [phone] Maryse Burton PA-C Unavailable Roopa Almonte MD Unavailable [phone] Griffin Joshi MD Unavailable Paula Reza MD Primary Care Provider [phone] Roopa Almonte MD Unavailable [phone] Augustine Callaway MD Unavailable Daylin Ludwig Unavailable Daylin Ludwig Unavailable [phone] Marilin Montaño STAMPING DIE MAKER Unavailable [phone] Esha Dewitt MD Unavailable [phone] Heather Mosquera MD Unavailable [phone] Paula Reza MD Unavailable Esha Dewitt MD Unavailable [phone] Valdo EscamillaC Unavailable [phone] Nohelia Abarca PA-C Unavailable [phone] Heather Mosquera MD Unavailable [phone] Fawad York MD Unavailable Encounter Details Date Type Department Care Team (Late st Contact Info) Description 10/03/2022 MyC Medical Advice [facility] [address] 4th [place] [address] Paz Zavala, RN Social History [...] to Optimize Self-Care Behaviors 90%(03/23/19 3:12 PM FAST FOODS WORKER) Angelita Diaz RD Note: I will [...] of this encounter Care Teams Community Arts Worker Relationship Specialty Start Date End Date Paula Reza MD [address] [facility] 200 [place] [address] PCP - General Internal Medicine 08/05/21 Roopa Almonte MD [address] [facility] 200 [place] [address] Endocrinology, Diabetes, and Metabolism 01/19/21 Maryse Burton PA-C 5200 [place], [place] [address] Physician Cartridge Belt Puncher Dermatology 04/14/21 Roopa Almonte MD [address] [facility] 200 [place] [address] Hospitalist Endocrinology, Diabetes, and Metabolism 05/30/21 Griffin Joshi MD [address] [facility] [address] [place] [address] Cardiovascular Disease 07/25/21 Roopa Almonte MD [address] [facility] 200 [place], [place] [address] Assigned Endocrinology Provider 09/10/21 [place] [address] [facility] 300 [place] [address] Assigned Musculoskeletal Provider 10/15/21 04/26/23 Daylin Ludwig EP [facility] [address] [address] Cardiac Rehabilitation Therapist 05/16/23 Daylin Ludwig EP [facility] [address] 66[address]65 Cardiac Rehabilitation Therapist 06/08/22 06/09/23 Marilin Montaño, STAMPING DIE MAKER [address] [address] Assigned Heart and Vascular Provider 08/05/22 Esha Dewitt MD 420 [facility] 36 [place], [place] [address] MD Gastroenterology 09/06/22 Heather Mosquera MD [address] [facility] 150 [place] [address] Internal Medicine 09/06/22 Paula Reza MD 303 E [facility] 200 [place] [address] Assigned PCP 09/09/22 01/05/23 Esha Dewitt MD 420 [facility] 36 [place] [address] Assigned Gastroenterology Provider 09/23/22 Valdo Escamilla PA-C [address] [place], [place] [address] Assigned Neuroscience Provider 09/30/22 Nohelia Abarca PA-C [address] [place] [address] Physician Cartridge Belt Puncher Gastroenterology 10/03/22 Heather Mosquera MD [address] [address] Assigned PCP 01/06/23 Fawad York MD 9 [place], [place] [address] Assigned Musculoskeletal Provider 04/27/23 06/25/23 documented as of this encounter
--- OUTSIDE RECORDS SUMMARY | 2023-12-25 08:12 | XMS_ITS | Encounter Summary ---
Author Organization [place] Address [address] [place] [address] Care Team Providers Care Consulting Project Director Name Role Phone Roopa Almonte MD Unavailable [phone] Maryse Burton PA-C Unavailable Roopa Almonte MD Unavailable [phone] Griffin Joshi MD Unavailable Paula Rzea MD Primary Care Provider [phone] Roopa Almonte MD Unavailable [phone] Augustine Callaway MD Unavailable Daylin Ludwig Unavailable Daylin Ludwig Unavailable [phone] Marilin Montaño IT SYSTEMS ANALYST CONSULTANT Unavailable [phone] Esha Dewitt MD Unavailable [phone] Heather Mosquera MD Unavailable [phone] Paula Reza MD Unavailable Esha Dewitt MD Unavailable [phone] Valdo EscamillaC Unavailable [phone] Nohelia Abarca PA-C Unavailable [phone] Heather Mosquera MD Unavailable [phone] Fawad York MD Unavailable [phone] Encounter Details Date Type Department Care Team (Late st Contact Info) Description 10/05/2022 MyC Medical Advice [facility] [address] 4th [place] [address] Amy De La Cruz Social [...] to Optimize Self-Care Behaviors 90%(03/23/19 3:12 PM DYNAMOMETER TESTER) Angelita Diaz RD Note: I will check [...] documented as of this encounter Care Teams Consulting Project Director Relationship Specialty Start Date End Date Paula Reza MD [address] [facility] 200 [place], [place] [address] PCP - General Internal Medicine 08/05/21 Roopa Almonte MD [address] [facility] 200 [place] [address] Endocrinology, Diabetes, and Metabolism 01/19/21 Maryse Burton PA-C 5200 [place] [address] Physician Piercer Operator Dermatology 04/14/21 Roopa Almonte MD [address] [facility] 200 [place] [address] Hospitalist Endocrinology, Diabetes, and Metabolism 05/30/21 Griffin Joshi MD [address] [facility] [address] [place] [id number] Cardiovascular Disease 07/25/21 Roopa Almonte MD [address] [place] [address] 200 [place], [place] [address] Assigned Endocrinology Provider 09/10/21 [place] [address] [facility] 300 [place] [address] Assigned Musculoskeletal Provider 10/15/21 04/26/[address] [facility] [address] [address] Cardiac Rehabilitation Therapist 05/16/[address] [facility] [address] [place] 453065 Cardiac Rehabilitation Therapist 06/08/22 06/09/23 Marilin Montaño IT SYSTEMS ANALYST CONSULTANT [address] 6454[address] Assigned Heart and Vascular Provider 08/05/22 Esha Dewitt MD [address] [address] MD Gastroenterology 09/06/22 Heather Mosquera MD [address] [facility] 150 [place], [place] [address] Internal Medicine 09/06/22 Paula Reza MD 303 E [facility] 200 [place], [place] [address] Assigned PCP 09/09/22 01/05/23 Esha Dewitt MD [address] [address] Assigned Gastroenterology Provider 09/23/22 Valdo Escamilla PA-C [address] [facility] [address] [place], [place] [address] Assigned Neuroscience Provider 09/30/22 Nohelia Abarca PA-C [address] [place], [place] [address] Physician Piercer Operator Gastroenterology 10/03/22 Heather Mosquera MD [address] [address] Assigned PCP 01/06/23 Fawad York MD 9 [place], [place] [address] Assigned Musculoskeletal Provider 04/27/23 06/25/23 documented as of this encounter
--- OUTSIDE RECORDS SUMMARY | 2023-12-25 08:12 | XMS_ITS | Encounter Summary ---
Author Organization [place] Address [address] [place] [address] Care Team Providers Care Hydroblaster Name Role Phone Roopa Almonte MD Unavailable [phone] Maryse Burton PA-C Unavailable Roopa Almonte MD Unavailable [phone] Griffin Joshi MD Unavailable Paula Reza MD Primary Care Provider [phone] Roopa Almonte MD Unavailable [phone] Augustine Callaway MD Unavailable Daylin Ludwig EP Unavailable Daylin Ludwig EP Unavailable [phone] Shahida [place] APRN PROJECT CONTROL OFFICER Unavailable Un available Marilin Montaño PROJECT CONTROL OFFICER Unavailable [phone] Esha Dewitt MD Unavailable [phone] Heather Mosquera MD Unavailable [phone] Paula Reza MD Unavailable Esha Dewitt MD Unavailable [phone] Valdo Escamilla PA-C Unavailable Nohelia Abarca-C Unavailable [phone] Heather Mosquera MD Unavailable [phone] Fawad York MD Unavailable Encounter Details Date Type Department Care Team (Late st Contact Info) Description 08/23/2022 MyC Medical Advice [facility] [address] [facility] [address] [place] [address] Carmen Prince, LICENSED PLUMBER Social History Tobacco Use Types Packs/Day Years [...] Optimize Self-Care Behaviors 90%(03/23/19 3:12 PM DIRECTOR EMERGENCY) Angelita Diaz RD Note: I will check [...] documented as of this encounter Care Teams Hydroblaster Relationship Specialty Start Date End Date Paula Reza MD [address] [facility] 200 [place] [address] PCP - General Internal Medicine 08/05/21 Roopa Almonte MD [address] [address] Endocrinology, Diabetes, and Metabolism 01/19/21 Maryse Burton, PA-C [address] [place] [address] Physician High School Math Tutor Dermatology 04/14/21 Roopa Almonte MD [address] [address] Hospitalist Endocrinology, Diabetes, and Metabolism 05/30/21 Griffin Joshi MD [address] [facility] [address] [address] Cardiovascular Disease 07/25/21 Roopa Almonte MD [address] 200 [place], [place] [address]170 Assigned Endocrinology Provider 09/10/21 [place] [address] [facility] 300 [place] [address] Assigned Musculoskeletal Provider 10/15/21 04/26/[address] [facility] [address] [address]28345 Cardiac Rehabilitation Therapist 05/16/[address] [facility] [address] [place] [address] Cardiac Rehabilitation Therapist 06/08/22 06/09/23 Shahida [place], DUANE PROJECT CONTROL OFFICER Assigned PCP 07/08/22 09/08/22 Marilin Montaño, PROJECT CONTROL OFFICER [address] [place], [place] [address] Assigned Heart and Vascular Provider 08/05/22 Esha Dewitt MD 420 [facility] 36 [place], [place] [address] MD Gastroenterology 09/06/22 Heather Mosquera MD [address] [place] [address] Internal Medicine 09/06/22 Paula Reza MD [address] [facility] 200 [place], [place] [address]87 Assigned PCP 09/09/22 01/05/23 Esha Dewitt MD [address] [facility] 36 [place], [place] [address] Assigned Gastroenterology Provider 09/23/22 Valdo Escamilla PA-C [address] [place] [address] Assigned Neuroscience Provider 09/30/22 Nohelia Abarca PA-C 2450 [place] [address] Physician High School Math Tutor Gastroenterology 10/03/22 Heather Mosquera MD 6545 [facility] 150 [place], [place] [address] Assigned PCP 01/06/23 Fawad York MD 909 [place], [place] [address] Assigned Musculoskeletal Provider 04/27/23 06/25/23 documented as of this encounter
--- OUTSIDE RECORDS SUMMARY | 2023-12-25 08:12 | XMS_ITS | Encounter Summary ---
Author Organization [place] Address [address] [place] [address] Care Team Providers Care Scheduling Specialist Name Role Phone Roopa Almonte MD Unavailable [phone] Maryse Burton PA-C Unavailable [phone] Roopa Almonte MD Unavailable [phone] Griffin Joshi MD Unavailable Rina Magallon RN Unavailable [phone] Paula Reza MD Primary Care Provider [phone] Roopa Almonte MD Unavailable [phone] Rosa Maria Love Unavailable [phone] Augustine Callaway MD Unavailable Porsha Michaels APRN BAG SEALER Unavailable [phone] Paula Reza MD Unavailable Shahida [place] APRN BAG SEALER Unavailable Un available Daylin Ludwig Unavailable [phone] Laurel Velasquez MD Unavailable [phone] Daylin Ludwig Unavailable [phone] Paula Reza MD Unavailable Brando, Kim DUANE BAG SEALER Unavailable Laurel Velasquez MD Unavailable [phone] Shahida [place] CUTTER IN BAG SEALER Unavailable Un available GerryyamilMarilin BAG SEALER Unavailable [phone] Esha Dewitt MD Unavailable [phone] Heather Mosquera MD Unavailable [phone] Paula Reza MD Unavailable Esha Dewitt MD Unavailable [phone] Valdo Escamilla PA-C Unavailable Nohelia Abarca-C Unavailable [phone] Heather Mosquera MD Unavailable [phone] Fawad York MD Unavailable [phone] Reason for Visit * Reason Onset Date Comments Appointment 03/29/2022 Reschedule TAVR Encounter Details Date Type Department Care Team (Late st Contact Info) Description 03/29/2022 Telephone [facility] [address] [address] Brady Lion MD Appointment (Reschedule [...] Not Applicable Thank you! [facility] ER APPRENTICE documented in this encounter Plan of Treatment [...] Optimize Self-Care Behaviors 90%(03/23/19 23 3:12 PM LATHER APPRENTICE) Angelita Diaz RD Note: I will check [...] documented as of this encounter Care Teams Scheduling Specialist Relationship Specialty Start Date End Date Paula Reza MD [address] [facility] [address] [address] PCP - General Internal Medicine 08/05/21 Roopa Almonte MD [address] [address] Endocrinology, Diabetes, and Metabolism 01/19/21 Maryse Burton PAAna MariaC 5200 [place] [address] Physician Cushion Stuffer Dermatology 04/14/21 Roopa Almonte MD [address] [facility] 200 [place] [address] Hospitalist Endocrinology, Diabetes, and Metabolism 05/30/21 Griffin Joshi MD [address] [facility] [address] [place] [address] Cardiovascular Disease 07/25/21 Rina Magallon, RN Lead Chief Environmental Commitment Officer 07/29/21 07/11/22 Roopa Almonte MD [address] [facility] 200 [place], [place] [address] Assigned Endocrinology Provider 09/10/21 Rsoa Maria Love CHW Community Health Worker 10/06/21 07/11/22 [place] [address] [facility] 300 [place] [address] Assigned Musculoskeletal Provider 10/15/21 04/26/23 Porsha Michaels APRN BAG SEALER [address] [place] [address] Assigned Heart and Vascular Provider 02/11/22 05/12/22 Paula Reza MD [address] [facility] [facility] 200 [place] [address] Assigned PCP 03/25/22 04/07/22 Shahida [place] APRN BAG SEALER [address] [facility] 200 [place] [address] Assigned PCP 04/08/22 06/30/[address] [facility] [address] [address] Cardiac Rehabilitation Therapist 05/16/23 Laurel Velasquez MD [address] 8[address] Assigned Heart and Vascular Provider 05/13/22 06/30/[address] [facility] [address] [address] Cardiac Rehabilitation Therapist 06/08/22 06/09/23 Paula Reza MD [address] [facility] 200 [place], [place] [address] Assigned PCP 07/01/22 07/07/22 Porsha Michaels APRN BAG SEALER [address] [address] Assigned Heart and Vascular Provider 07/01/22 07/07/22 Laurel Velasquez MD [address] [address] Assigned Heart and Vascular Provider 07/08/22 08/04/22 Shahida [place] APRN BAG SEALER Assigned PCP 07/08/22 09/08/22 Marilin Montaño, BAG SEALER [address] [address] Assigned Heart and Vascular Provider 08/05/22 Esha Dewitt MD [address] [place] [address] 36 [place], [place] [address] Gastroenterology 09/06/22 Heather Mosquera MD [address] [place], [place] [address] Internal Medicine 09/06/22 Paula Reza MD [address] [facility] 200 [place], [place] [address] Assigned PCP 09/09/22 01/05/23 Esha Dewitt MD 420 [facility] 36 [place], [place] [address] Assigned Gastroenterology Provider 09/23/22 Valdo Escamilla PA-C [address] [facility] [address] [place], [place] [address] Assigned Neuroscience Provider 09/30/22 Nohelia Abarca PA-C [address] [place], [place] [address] Physician Cushion Stuffer Gastroenterology 10/03/22 Heather Mosquera MD [address] [facility] [address] [place], [place] [address] Assigned PCP 01/06/23 Fawad [place] MD 909 [place] [address] Assigned Musculoskeletal Provider 04/27/23 06/25/23 documented as of this encounter
--- OUTSIDE RECORDS SUMMARY | 2023-12-25 08:12 | XMS_ITS | Encounter Summary ---
Author Organization [place] Address [address] [place] [address] Care Team Providers Care Densitometrist Name Role Phone Roopa Almonte MD Unavailable [phone] Maryse Burton PA-C Unavailable Roopa Almonte MD Unavailable [phone] Griffin Joshi MD Unavailable Paula Reza MD Primary Care Provider [phone] Roopa Almonte MD Unavailable [phone] Augustine Callaway MD Unavailable Daylin Ludwig Unavailable Daylin Ludwig Unavailable [phone] Marilin Montaño C APPLICATION DEVELOPER Unavailable [phone] Esha Dewitt MD Unavailable [phone] Heather Mosquera MD Unavailable [phone] Paula Reza MD Unavailable Esha Dewitt MD Unavailable [phone] Valdo EscamillaC Unavailable [phone] Nohelia Abarca PA-C Unavailable [phone] Heather Mosquera MD Unavailable [phone] Fawad York MD Unavailable [phone] Encounter Details Date Type Department Care Team (Late st Contact Info) Description 10/13/2022 MyC Medical Advice [facility] [place] [address] [facility] 202 [place] [address] Yaerli Flynn CMA Social History Tobacco Use Types [...] Optimize Self-Care Behaviors 90%(03/23/19 23 3:12 PM CONTACT ACID PLANT OPERATOR HELPER) Angelita Diaz RD Note: I [...] documented as of this encounter Care Teams Densitometrist Relationship Specialty Start Date End Date Paula Reza MD [address] [facility] 200 [place] [address] PCP - General Internal Medicine 08/05/21 Roopa Almonte MD [address] [facility] 200 [place] [address] Endocrinology, Diabetes, and Metabolism 01/19/21 Maryse Burton PA-C 5200 [place] [address] Physician Waiter/Waitress Informal Dermatology 04/14/21 Roopa Almonte MD [address] [facility] 200 [place] [address] Hospitalist Endocrinology, Diabetes, and Metabolism 05/30/21 Griffin Joshi MD [address] [facility] [address] [address] Cardiovascular Disease 07/25/21 Roopa Almonte MD [address] [facility] 200 [place], [place] [address] Assigned Endocrinology Provider 09/10/21 [place] [address] [facility] 300 [place] [address] Assigned Musculoskeletal Provider 10/15/21 04/26/23 Daylin Ludwig EP [facility] [address] [address] Cardiac Rehabilitation Therapist 05/16/23 Daylin Ludwig EP [facility] [address] [address] Cardiac Rehabilitation Therapist 06/08/22 06/09/23 Marilin Montaño, C APPLICATION DEVELOPER [address] [address] Assigned Heart and Vascular Provider 08/05/22 Esha Dewitt MD 420 [facility] 36 [place] [address] Gastroenterology 09/06/22 Heather Mosquera MD [address] [place] [address] Internal Medicine 09/06/22 Paula Reza MD 303 E [facility] 200 [place] [address] Assigned PCP 09/09/22 01/05/23 Esha Dewitt MD 420 [facility] 36 [place] [address] Assigned Gastroenterology Provider 09/23/22 Valdo Escamilla PA-C [address] [place], [place] [address] Assigned Neuroscience Provider 09/30/22 Nohelia Abarca PA-C [address] [place], [place] [address] Physician Waiter/Waitress Informal Gastroenterology 10/03/22 Heather Mosquera MD [address] [address] Assigned PCP 01/06/23 Fawad [place] MD 909 [place] [address] Assigned Musculoskeletal Provider 04/27/23 06/25/23 documented as of this encounter
--- OUTSIDE RECORDS SUMMARY | 2023-12-25 08:12 | XMS_ITS | Encounter Summary ---
Author Organization [place] Address [address] [place] [address] Care Team Providers Care Wellness Educator Name Role Phone Roopa Almonte MD Unavailable [phone] Maryse Burton PA-C Unavailable [phone] Roopa Almonte MD Unavailable [phone] Griffin Joshi MD Unavailable Rina Magallon RN Unavailable [phone] Paula Reza MD Primary Care Provider [phone] Roopa Almonte MD Unavailable [phone] Rosa Maria Love Unavailable [phone] Augustine Callaway MD Unavailable Porsha Michaels APRN FEED HOUSE SUPERVISOR Unavailable [phone] Shahida [place] APRN FEED HOUSE SUPERVISOR Unavailable Un available Daylin Ludwig Unavailable [phone] Laurel Velasquez MD Unavailable [phone] Daylin Ludwig Unavailable [phone] Paula Reza MD Unavailable Porsha Michaels APRN FEED HOUSE SUPERVISOR Unavailable Laurel Velasquez MD Unavailable [phone] Shahida [place] APRN FEED HOUSE SUPERVISOR Unavailable Un available Marilin Montaño FEED HOUSE SUPERVISOR Unavailable Esha Dewitt MD Unavailable [phone] Heather Mosquera MD Unavailable Paula Reza MD Unavailable Esha Dewitt MD Unavailable [phone] Valdo Escamilla PAAna MariaC Unavailable Nohelia AbarcaC Unavailable [phone] Heather Mosquera MD Unavailable Fawad York MD Unavailable Encounter Details Date Type Department Care Team (Late st Contact Info) Description 05/02/2022 Telephone [facility] [address] [address] Laurel Velasquez MD [address] [address] Social History Tobacco Use [...] Coronavirus/COVID-19? No / Unsure 05/02/2022 3:45 PM FORENSIC SCIENCE TECHNICIAN documented as of this encounter Miscellaneous Notes * Telephone Encounter - Abdulaziz Mendez - 05/02/2022 1:59 PM CST Spoke to patient and patient has decided to keep his appointment for today 05/02/22 at 4:[address] Velasquez. He does not want to cancel his appointment. NSIC SCIENCE TECHNICIAN * Telephone Encounter - Crystal Dietrich - 05/02/2022 1:35 PM CST [facility] Phone Message May a detailed message be left on voicemail: yes Reason for Call: Other: Pt called in wanting to reschedule TAVR appointment again. Please call patient back to further coordinate at [phone] Action Taken: Other: cardiology Travel Screening: Not Applicable Thank you! Specialty Access Center NSIC SCIENCE TECHNICIAN documented in this encounter Plan of [...] to Optimize Self-Care Behaviors 90%(03/23/19 3:12 PM FORENSIC SCIENCE TECHNICIAN) Angelita Diaz RD Note: I will [...] documented as of this encounter Care Teams Wellness Educator Relationship Specialty Start Date End Date Paula Reza MD [address] [facility] 200 [place] [address] PCP - General Internal Medicine 6/3/22 Roopa Almonte MD [address] [facility] 200 [place] [address] Endocrinology, Diabetes, and Metabolism 01/19/21 Maryse Burton PA-C 5200 [place] [address] Physician Foam Caster Dermatology 04/14/21 Roopa Almonte MD [address] [facility] 200 [place] [address] Hospitalist Endocrinology, Diabetes, and Metabolism 05/30/21 Griffin Joshi MD [address] [facility] [address] [place] [address] Cardiovascular Disease 07/25/21 Rina Magallon, RN Lead Logistics Program Manager 07/29/21 07/11/22 Roopa Almonte MD [address] [place] [address] 200 [place], [place] [address] Assigned Endocrinology Provider 09/10/21 Rosa Maria Love CHW Community Health Worker 10/06/21 07/11/22 [place] [address] [facility] 300 [place] [address] Assigned Musculoskeletal Provider 10/15/21 04/26/23 Porsha Michaels APRN FEED HOUSE SUPERVISOR [address] [place] [address] Assigned Heart and Vascular Provider 02/11/22 05/12/22 Shahida [place] APRN FEED HOUSE SUPERVISOR [address] [place] [address] Assigned PCP 04/08/22 06/30/22 Daylin Ludwig, [facility] [address] [place] [address] Cardiac Rehabilitation Therapist 05/16/23 Laurel Velasquez MD [address] [place] [address] Assigned Heart and Vascular Provider 05/13/22 06/30/22 Daylin Ludwig, [facility] [address] [place] [address] Cardiac Rehabilitation Therapist 06/08/22 06/09/23 Paula Reza MD [address] [facility] 200 [place], [place] [address] Assigned PCP 07/01/22 07/07/22 Porsha Michaels APRN FEED HOUSE SUPERVISOR [address] [place] [address] Assigned Heart and Vascular Provider 07/01/22 07/07/22 Laurel Velasquez MD [address] [place], [place] [address] Assigned Heart and Vascular Provider 07/08/22 08/04/22 Shahida [place] APRN FEED HOUSE SUPERVISOR Assigned PCP 07/08/22 09/08/22 Marilin Montaño, FEED HOUSE SUPERVISOR [address] [place] [address] Assigned Heart and Vascular Provider 08/05/22 Esha Dewitt MD [address] [address] MD Gastroenterology 09/06/22 Heather Mosquera MD [address] [facility] [address] [facility] 150 [place] [address] Internal Medicine 09/06/22 Paula Reza MD [address] [facility] 200 [place] [address] Assigned PCP 09/09/22 01/05/23 Esha Dewitt MD [address] [place] [address] Assigned Gastroenterology Provider 09/23/22 Valdo Escamilla PA-C 6363 [facility] S [facility] 103 [place] [address] Assigned Neuroscience Provider 09/30/22 Nohelia Abarca PA-C 2450 [place] [address] Physician Foam Caster Gastroenterology 10/03/22 Heather Mosquera MD [address] [facility] [address] [facility] 150 [place], [place] [address] Assigned PCP 01/06/23 Fawad [place] MD [address] [place] [address] Assigned Musculoskeletal Provider 04/27/23 06/25/23 documented as of this encounter
--- OUTSIDE RECORDS SUMMARY | 2023-12-25 08:12 | XMS_ITS | Encounter Summary ---
Author Organization [place] Address [address] [place] [address] Care Team Providers Care Welfare Administrator Name Role Phone Roopa Almonte MD Unavailable [phone] Maryse Burton PA-C Unavailable Roopa Almonte MD Unavailable [phone] Griffin Joshi MD Unavailable Paula Reza MD Primary Care Provider [phone] Roopa Almonte MD Unavailable [phone] Augustine Callaway MD Unavailable Daylin Ludwig Unavailable Daylin Ludwig Unavailable [phone] Marilin Montaño CERTIFIED PESTICIDE APPLICATOR Unavailable [phone] Esha Dewitt MD Unavailable [phone] Heather Mosquera MD Unavailable [phone] Paula Reza MD Unavailable Esha Dewitt MD Unavailable [phone] Valdo EscamillaC Unavailable [phone] Nohelia Abarca PA-C Unavailable [phone] Heather Mosquera MD Unavailable Fawad [place] MD Unavailable [phone] Encounter Details Date Type Department Care Team (Late st Contact Info) Description 09/13/2022 MyC Medical Advice [facility] [place] [address] [facility] [address] [place] [address] Esha Dewitt MD 420 [facility] 36 [place] [address] Social History Tobacco Use Types [...] to Optimize Self-Care Behaviors 90%(03/23/19 3:12 PM DOGGY DAYCARE ACTIVITIES DIRECTOR) Angelita Diaz RD Note: I will [...] documented as of this encounter Care Teams Welfare Administrator Relationship Specialty Start Date End Date Paula Reza MD [address] [facility] 200 [place] [address] PCP - General Internal Medicine 08/05/21 Roopa Almonte MD [address] [facility] 200 [place] [address] Endocrinology, Diabetes, and Metabolism 01/19/21 Maryse [place], PAAna MariaC 5200 [place] [address] Physician Automotive Product Engineer Dermatology 04/14/21 Roopa Almonte MD [address] [facility] 200 [place] [address] Hospitalist Endocrinology, Diabetes, and Metabolism 05/30/21 Griffin Joshi MD 6405 [facility] [address] [place] [address] Cardiovascular Disease 07/25/21 Roopa Almonte MD [address] [facility] 200 [place], [place] [address] Assigned Endocrinology Provider 09/10/21 [place] [address] [facility] 300 [place] [address] Assigned Musculoskeletal Provider 10/15/21 04/26/23 Daylin Ludwig EP [facility] [address] [place] [address] Cardiac Rehabilitation Therapist 05/16/23 Daylin Ludwig EP [facility] [address] [place] [address] Cardiac Rehabilitation Therapist 06/08/22 06/09/23 Marilin Montaño, CERTIFIED PESTICIDE APPLICATOR [address] [place] [address] Assigned Heart and Vascular Provider 08/05/22 Esha Dewitt MD 420 [facility] 36 [place], [place] [address] Gastroenterology 09/06/22 Heather Mosquera MD [address] [place], [place] [address] Internal Medicine 09/06/22 Paula Reza MD 303 [address] [facility] 200 [place], [place] [address] Assigned PCP 09/09/22 01/05/23 Esha Dewitt MD 420 [facility] 36 [place], [place] [address] Assigned Gastroenterology Provider 09/23/22 Valdo Escamilla PA-C [address] [place] [address] Assigned Neuroscience Provider 09/30/22 Nohelia Abarca PA-C 2450 [place] [address] Physician Automotive Product Engineer Gastroenterology 10/03/22 Heather Mosquera MD 6545 [facility] 150 [place] [address] Assigned PCP 01/06/23 Fawad [place] MD 909 [place] [address] Assigned Musculoskeletal Provider 04/27/23 06/25/23 documented as of this encounter
--- OUTSIDE RECORDS SUMMARY | 2023-12-25 08:12 | XMS_ITS | Encounter Summary ---
Author Organization [employer] Address [address] [place] [address] Care Team Providers Care Pipe Fitter Welding Name Role Phone Roopa Almonte MD Unavailable [phone] Maryse Burton PA-C Unavailable [phone] Roopa Almonte MD Unavailable [phone] Griffin Joshi MD Unavailable Paula Reza MD Primary Care Provider [phone] Roopa Almonte MD Unavailable [phone] Augustine Callaway MD Unavailable Daylin Ludwig Unavailable Daylin Ludwig Unavailable [phone] Marilin Montaño CNC SET UP OPERATOR Unavailable [phone] Esha Dewitt MD Unavailable [phone] Heather Mosquera MD Unavailable [phone] Paula Reza MD Unavailable Esha Dewitt MD Unavailable [phone] Valdo EscamillaC Unavailable [phone] Nohelia Abarca PA-C Unavailable [phone] Heather Mosquera MD Unavailable [phone] Fawad York MD Unavailable Encounter Details Date Type Department Care Team (Late st Contact Info) Description 10/04/2022 MyC Medical Advice [facility] [address] 4th [place] [address] Jennifer Mast MA Social History [...] to Optimize Self-Care Behaviors 90%(03/23/19 3:12 PM STEAMBLASTER) Angelita Diaz RD Note: I will check [...] documented as of this encounter Care Teams Pipe Fitter Welding Relationship Specialty Start Date End Date Paula Reza MD [address] [address] PCP - General Internal Medicine 08/05/21 Roopa Almonte MD [address] [facility] 200 [place] [address] Endocrinology, Diabetes, and Metabolism 01/19/21 Maryse Burton PAAna MariaC [address] [place], [place] [address] Physician Habilitation Assistant Dermatology 04/14/21 Roopa Almonte MD [address] [facility] 200 [place] [address] Hospitalist Endocrinology, Diabetes, and Metabolism 05/30/21 Griffin Joshi MD [address] [facility] [address] [place] [address] Cardiovascular Disease 07/25/21 Roopa Almonte MD [address] [facility] 200 [place], [place] [address] Assigned Endocrinology Provider 09/10/21 [place] [address] [facility] 300 [place] [address] Assigned Musculoskeletal Provider 10/15/21 04/26/23 Daylin Ludwig EP [facility] [address] [address] Cardiac Rehabilitation Therapist 05/16/23 Daylin Ludwig EP [facility] [address] [place] [address]95 Cardiac Rehabilitation Therapist 06/08/22 06/09/23 Marilin Montaño CNC SET UP OPERATOR [address] [address] Assigned Heart and Vascular Provider 08/05/22 Esha Dewitt MD 420 [facility] 36 [place], [place] [address] MD Gastroenterology 09/06/22 Heather Mosquera MD [address] [place] [address] Internal Medicine 09/06/22 Paula Reza MD 303 E [facility] 200 [place], [place] [address]37 Assigned PCP 09/09/22 01/05/23 Esha Dewitt MD 420 [facility] 36 [place], [place] [address] Assigned Gastroenterology Provider 09/23/22 Valdo Escamilla PA-C [address] [place], [place] [address] Assigned Neuroscience Provider 09/30/22 Nohelia Abarca PA-C [address] [place], [place] [address] Physician Habilitation Assistant Gastroenterology 10/03/22 Heather Mosquera MD [address] [address] Assigned PCP 01/06/23 Fawad York MD 9 [place], [place] [address] Assigned Musculoskeletal Provider 04/27/23 06/25/23 documented as of this encounter
--- OUTSIDE RECORDS SUMMARY | 2023-12-25 08:12 | XMS_ITS | Encounter Summary ---
Author Organization [place] Address [address] [place] [address] Care Team Providers Care Exterminator Helper Termite Name Role Phone Roopa Almonte MD Unavailable [phone] Maryse Burton PA-C Unavailable [phone] Roopa Almonte MD Unavailable [phone] Griffin Joshi MD Unavailable Rina Magallon RN Unavailable [phone] Paula Reza MD Primary Care Provider [phone] Roopa Almonte MD Unavailable [phone] Rosa Maria Love Unavailable [phone] Augustine Callaway MD Unavailable Porsha Michaels APRN POTATO CHIP SORTER Unavailable [phone] Shahida Sutton APRN POTATO CHIP SORTER Unavailable Un available Daylin Ludwig Unavailable [phone] Laurel Velasquez MD Unavailable [phone] Daylin Ludwig Unavailable [phone] Paula Reza MD Unavailable Porsha Michaels APRN POTATO CHIP SORTER Unavailable [phone] RonArelyyemi Sands MD Unavailable [phone] Shahida Sutton APRN POTATO CHIP SORTER Unavailable Un available Marilin Montaño POTATO CHIP SORTER Unavailable Esha Dewitt MD Unavailable [phone] EvelineHeather pastrana MD Unavailable [phone] Paula Reza MD Unavailable Esha Dewitt MD Unavailable [phone] Valdo Escamilla PA-C Unavailable [phone] Nohelia Abarca-C Unavailable [phone] Heather Mosquera MD Unavailable [phone] Fawad York MD Unavailable Encounter Details Date Type Department Care Team (Late st Contact Info) Description 04/18/2022 [facility] Medical Advice [address] [place] [address] Sonia Neal, RN Social History [...] Coronavirus/COVID-19? No / Unsure 04/12/2022 3:43 PM WIRE FRAME LAMP SHADE MAKER documented as of this encounter Plan of [...] to Optimize Self-Care Behaviors 90%(03/23/19 3:12 PM WIRE FRAME LAMP SHADE MAKER) Angelita Diaz RD Note: I will check [...] documented as of this encounter Care Teams Exterminator Helper Termite Relationship Specialty Start Date End Date Paula Reza MD [address] [place], [place] [address] PCP - General Internal Medicine 08/05/21 Roopa Almonte MD [address] [facility] 200 [place] [address] Endocrinology, Diabetes, and Metabolism 01/19/21 Maryse Burton, PAAna MariaC 5200 [place] [address] Physician Maintenance Associate Dermatology 04/14/21 Roopa Almonte MD [address] [facility] 200 [place] [address] Hospitalist Endocrinology, Diabetes, and Metabolism 05/30/21 Griffin Joshi MD [address] S [facility] [address] [place] [address] Cardiovascular Disease 07/25/21 Rina Magallon, RN Lead Principal Systems Architect 07/29/21 07/11/22 Roopa Almonte MD [address] [facility] 200 [place] [address] Assigned Endocrinology Provider 09/10/21 Kate Rosa Maria, CHW Community Health Worker 10/06/21 07/11/22 [place] [address] [facility] 300 [place] [address] Assigned Musculoskeletal Provider 10/15/21 04/26/23 Porsha Michaels APRN POTATO CHIP SORTER [address] [address] Assigned Heart and Vascular Provider 02/11/22 05/12/22 Shahida Sutton APRN POTATO CHIP SORTER [address] [address] Assigned PCP 04/08/22 06/30/22 Daylin Ludwig EP [facility] [address] [address] Cardiac Rehabilitation Therapist 05/16/23 Laurel Velasquez MD [address] [address] Assigned Heart and Vascular Provider 05/13/22 06/30/22 Daylin Ludwig EP [facility] [address] [address] Cardiac Rehabilitation Therapist 06/08/22 06/09/23 Paula Reza MD [address] 200 [place] [address] Assigned PCP 07/01/22 07/07/22 Porsha Michaels APRN POTATO CHIP SORTER [address] [place] [address] Assigned Heart and Vascular Provider 07/01/22 07/07/22 Laurel Velasquez MD [address] [place] [address] Assigned Heart and Vascular Provider 07/08/22 08/04/22 Shahida Sutton APRN POTATO CHIP SORTER Assigned PCP 07/08/22 09/08/22 Marilin Montaño POTATO CHIP SORTER [address] [place] [address] Assigned Heart and Vascular Provider 08/05/22 Esha Dewitt MD [address] [place] [address] Gastroenterology 09/06/22 Heather Mosquera MD [address] [place] [address] Internal Medicine 09/06/22 Paula Reza MD [address] 200 [place], [place] [address]37 Assigned PCP 09/09/22 01/05/23 Esha Dewitt MD [address] [place] [address] Assigned Gastroenterology Provider 09/23/22 Valdo Escamilla PA-C 6363 [facility] 103 [place] [address] Assigned Neuroscience Provider 09/30/22 Nohelia Abarca PA-C 2450 [place], [place] [address] Physician Maintenance Associate Gastroenterology 10/03/22 Heather Mosquera MD 6545 [facility] 150 [place], [place] [address] Assigned PCP 01/06/23 Fawad York MD 909 [place], [place] [address] Assigned Musculoskeletal Provider 04/27/23 06/25/23 documented as of this encounter
--- OUTSIDE RECORDS SUMMARY | 2023-12-25 08:12 | XMS_ITS | Encounter Summary ---
Author Organization [place] Address [address] [place] [address] Care Team Providers Care Retail Leader Name Role Phone Roopa Almonte MD Unavailable [phone] Maryse Burton PA-C Unavailable Roopa Almonte MD Unavailable [phone] Griffin Joshi MD Unavailable Paula Reza MD Primary Care Provider [phone] Roopa Almonte MD Unavailable [phone] Augustine Callaway MD Unavailable Daylin Ludwig Unavailable Daylin Ludwig Unavailable [phone] Marilin Montaño ENAMEL FINISHER Unavailable [phone] Esha Dewitt MD Unavailable [phone] Heather Mosquera MD Unavailable [phone] Paula Reza MD Unavailable Esha Dewitt MD Unavailable [phone] Valdo EscamillaC Unavailable [phone] Nohelia Abarca PA-C Unavailable [phone] Heather Mosquera MD Unavailable [phone] Fawad York MD Unavailable Encounter Details Date Type Department Care Team (Late st Contact Info) Description 10/05/2022 MyC Medical Advice [facility] [address] 4th [place] [address] Amy De La Cruz Social [...] to Optimize Self-Care Behaviors 90%(03/23/19 3:12 PM ESTIMATOR PRINTING) Angelita Diaz RD Note: I will check [...] as of this encounter Care Teams Retail Leader Relationship Specialty Start Date End Date Paula Reza MD [address] [facility] 200 [place], [place] [address] PCP - General Internal Medicine 08/05/21 Roopa Almonte MD [address] [facility] 200 [place] [address] Endocrinology, Diabetes, and Metabolism 01/19/21 Maryse Burton PA-C 5200 [place] [address] Physician Steel Rod Buster Dermatology 04/14/21 Roopa Almonte MD [address] [facility] 200 [place] [address] Hospitalist Endocrinology, Diabetes, and Metabolism 05/30/21 Griffin Joshi MD [address] [facility] [address] [place] [address] Cardiovascular Disease 07/25/21 Roopa Almonte MD [address] [place] [address] 200 [place], [place] [address] Assigned Endocrinology Provider 09/10/21 [place] [address] [facility] 300 [place] [address] Assigned Musculoskeletal Provider 10/15/21 04/26/23 Daylin Ludwig EP [facility] [address] [address] Cardiac Rehabilitation Therapist 05/16/23 Daylin Ludwig EP [facility] [address] [place] [address] Cardiac Rehabilitation Therapist 06/08/22 06/09/23 Marilin Montaño ENAMEL FINISHER [address] [address] Assigned Heart and Vascular Provider 08/05/22 Esha Dewitt MD [address] [address] MD Gastroenterology 09/06/22 Heather Mosquera MD [address] [facility] [address] [facility] 150 [place], [place] [address] Internal Medicine 09/06/22 Paula Reza MD 303 E [facility] 200 [place], [place] [address] Assigned PCP 09/09/22 01/05/23 Esha Dewitt MD [address] [address] Assigned Gastroenterology Provider 09/23/22 Valdo Escamilla PA-C [address] [facility] [address] [place], [place] [address] Assigned Neuroscience Provider 09/30/22 Nohelia Abarca PA-C [address] [place], [place] [address] Physician Steel Rod Buster Gastroenterology 10/03/22 Heather Mosquera MD [address] [address] Assigned PCP 01/06/23 Fawad York MD 9 [place], [place] [address] Assigned Musculoskeletal Provider 04/27/23 06/25/23 documented as of this encounter
--- OUTSIDE RECORDS SUMMARY | 2023-12-25 08:12 | XMS_ITS | Encounter Summary ---
Author Organization [employer] Address [address] [place] [address] Care Team Providers Care Foundation Coordinator Name Role Phone Roopa Almonte MD Unavailable [phone] Maryse Burton PA-C Unavailable [phone] Roopa Almonte MD Unavailable [phone] Griffin Joshi MD Unavailable Paula Reza MD Primary Care Provider [phone] Roopa Almonte MD Unavailable [phone] Augustine Callaway MD Unavailable Daylin Ludwig Unavailable Daylin Ludwig Unavailable [phone] Marilin Montaño HAIR OR BEAUTY SALON ASSISTANT Unavailable [phone] Esha Dewitt MD Unavailable [phone] Heather Mosquera MD Unavailable [phone] Paula Reza MD Unavailable Esha Dewitt MD Unavailable [phone] Valdo EscamillaC Unavailable [phone] Nohelia Abarca PA-C Unavailable Heather Mosquera MD Unavailable Fawad York MD Unavailable Encounter Details Date Type Department Care Team (Late st Contact Info) Description 10/12/2022 MyC Medical Advice [facility]astro[facility] [place] [address] [facility] [address] 4th [place] [address] Esha Dewitt MD 420 [facility] 36 [place] [address] Social History Tobacco Use Types [...] Optimize Self-Care Behaviors 90%(03/23/19 23 3:12 PM WAX ENGRAVER) Angelita Diaz RD Note: I will check [...] documented as of this encounter Care Teams Foundation Coordinator Relationship Specialty Start Date End Date Paula Reza MD [address] [facility] 200 [place] [address] PCP - General Internal Medicine 08/05/21 Roopa Almonte MD [address] [facility] 200 [place] [address] Endocrinology, Diabetes, and Metabolism 01/19/21 Maryse Burton, PAAna MariaC 5200 [place] [address] Physician Asphalt Spreader Dermatology 04/14/21 Roopa Almonte MD [address] [facility] 200 [place] [address] Hospitalist Endocrinology, Diabetes, and Metabolism 05/30/21 Griffin Joshi MD 6405 [facility] [address] [place] [address] Cardiovascular Disease 07/25/21 Roopa Almonte MD [address] [facility] 200 [place], [place] [address] Assigned Endocrinology Provider 09/10/21 [place] [address] [facility] 300 [place] [address] Assigned Musculoskeletal Provider 10/15/21 04/26/[address] [facility] [address] [place] [address] Cardiac Rehabilitation Therapist 05/16/[address] [facility] [address] [place] [address] Cardiac Rehabilitation Therapist 06/08/22 06/09/23 Marilin Montaño, HAIR OR BEAUTY SALON ASSISTANT [address] [place] [address] Assigned Heart and Vascular Provider 08/05/22 Esha Dewitt MD 420 [facility] 36 [place], [place] [address] Gastroenterology 09/06/22 Heather Mosquera MD [address] [place], [place] [address] Internal Medicine 09/06/22 Paula Reza MD 303 [facility] 200 [place], [place] [address] Assigned PCP 09/09/22 01/05/23 Esha Dewitt MD 420 [facility] 36 [place], [place] [address] Assigned Gastroenterology Provider 09/23/22 Valdo Escamilla PA-C [address] [place] [address] Assigned Neuroscience Provider 09/30/22 Nohelia Abarca PA-C 2450 [place] [address] Physician Asphalt Spreader Gastroenterology 10/03/22 Heather Mosquera MD 6545 [facility] 150 [place] [address] Assigned PCP 01/06/23 Fawad York MD 909 [place] [address] Assigned Musculoskeletal Provider 04/27/23 06/25/23 documented as of this encounter
--- OUTSIDE RECORDS SUMMARY | 2023-12-25 08:13 | XMS_ITS | Encounter Summary ---
Author Organization [place] Address [address] [place] [address] Care Team Providers Care Supervisor Multifocal Lens Name Role Phone Shahida Sutton APRN MERGERS AND ACQUISITIONS MANAGER Unavailable Un available Roopa Almonte MD Unavailable [phone] Maryse Burton PA-C Unavailable [phone] Roopa Almonte MD Unavailable [phone] Griffin Joshi MD Unavailable Rina Magallon RN Unavailable [phone] Paula Reza MD Primary Care Provider [phone] Griffin Joshi MD Unavailable Roopa Almonte MD Unavailable [phone] Basilio Morillo DO Unavailable Lydia BernsteinC Unavailable Rosa Maria Love Unavailable [phone] Augustine Callaway MD Unavailable Paula Reza MD Unavailable Keerthi Miner APRN MERGERS AND ACQUISITIONS MANAGER Unavailable [phone] Herman, Shahida Cummings APRN MERGERS AND ACQUISITIONS MANAGER Unavailable Un available Porsha Michaels APRN MERGERS AND ACQUISITIONS MANAGER Unavailable Paula Reza MD Unavailable Herman, Shahida Cummings APRN MERGERS AND ACQUISITIONS MANAGER Unavailable Un available Daylin Ludwig Unavailable Laurel Velasquez MD Unavailable Daylin Ludwig Unavailable Paula Reza MD Unavailable Porsha Michaels APRN MERGERS AND ACQUISITIONS MANAGER Unavailable Laurel Velasquez MD Unavailable Herman, Shahida Cummings YOUTH TEACHER MERGERS AND ACQUISITIONS MANAGER Unavailable Un available Marilin Montaño MERGERS AND ACQUISITIONS MANAGER Unavailable Esha Dewitt MD Unavailable [phone] Heather Mosquera MD Unavailable Paula Reza MD Unavailable Esha Dewitt MD Unavailable [phone] Valdo Escamilla PA-C Unavailable Nohelia Abarca PA-C Unavailable [phone] Heather Mosquera MD Unavailable Fawad York MD Unavailable Encounter Details Date Type Department Care Team (Late st Contact Info) Description 09/29/2021 MyC Medical Advice [facility] [place] [address] [facility] [address] [place] [address] [place] [address] [facility] [place] [place] [address] Social History Tobacco Use Types Packs/Day Years [...] as of this encounter Care Teams Supervisor Multifocal Lens Relationship Specialty Start Date End Date Paula Reza MD [address] [address] PCP - General Internal Medicine 08/05/21 Shahida Sutton APRN MERGERS AND ACQUISITIONS MANAGER Assigned PCP 07/12/14 09/30/21 Roopa Almonte MD [address] [facility] 200 [place] [address] Endocrinology, Diabetes, and Metabolism 01/19/21 Maryse Burton, HUYC 5200 [place] [address] Physician Tub Rider Dermatology 04/14/21 Roopa Almonte MD [address] [facility] 200 [place] [address] Hospitalist Endocrinology, Diabetes, and Metabolism 05/30/21 Griffin Joshi MD [address] [facility] [address] [place], [place] [address] Cardiovascular Disease 07/25/21 Rina Magallon, RN Lead Spot Welder Line 07/29/21 07/11/22 Griffin Joshi MD [address] [place] [address] Assigned Heart and Vascular Provider 08/06/21 10/07/21 Roopa Almonte MD [address] [facility] 200 [place], [place] [address] Assigned Endocrinology Provider 09/10/21 [place] [address] [facility] [place] 151239 Assigned Musculoskeletal Provider 09/17/21 10/14/21 Lydia Bernstein PA-C [address] [place] [address] Assigned PCP 10/01/21 10/21/21 Rosa Maria Love CHW Community Health Worker 10/06/21 07/11/22 [place] [address] [facility] 300 [place] [address] Assigned Musculoskeletal Provider 10/15/21 04/26/23 Paula Reza MD 303 [facility] 200 [place], [place] [address] Assigned PCP 10/22/21 12/23/21 Keerthi Miner APRN MERGERS AND ACQUISITIONS MANAGER [address] [place] [address] Assigned Heart and Vascular Provider 10/08/21 02/10/22 Shahida Sutton APRN MERGERS AND ACQUISITIONS MANAGER Assigned PCP 12/24/21 03/24/22 Porsha Michaels APRN MERGERS AND ACQUISITIONS MANAGER [address] [address] Assigned Heart and Vascular Provider 02/11/22 05/12/22 Paula Reza MD [address] [place] [address] Assigned PCP 03/25/22 04/07/22 Shahida Sutton APRN MERGERS AND ACQUISITIONS MANAGER [address] [place] [address] Assigned PCP 04/08/22 06/30/22 Daylin Ludwig, EP [facility] [address] [address] Cardiac Rehabilitation Therapist 05/16/23 Laurel Velasquez MD [address] [address] Assigned Heart and Vascular Provider 05/13/22 06/30/22 Daylin Ludwig, EP [facility] [address] [address]69[address] Cardiac Rehabilitation Therapist 06/08/22 06/09/23 Paula Reza MD [address] 200 [place] [address] Assigned PCP 07/01/22 07/07/22 Porsha Michaels APRN MERGERS AND ACQUISITIONS MANAGER [address] [place] [address] Assigned Heart and Vascular Provider 07/01/22 07/07/22 Laurel Velasquez MD [address] [place] [address] Assigned Heart and Vascular Provider 07/08/22 08/04/22 Shahida Sutton, DUANE MERGERS AND ACQUISITIONS MANAGER Assigned PCP 07/08/22 09/08/22 Marilin Montaño, MERGERS AND ACQUISITIONS MANAGER [address] [place] [address] Assigned Heart and Vascular Provider 08/05/22 Esha Dewitt MD [address] [address] MD Gastroenterology 09/06/22 Heather Mosquera MD [address] [place] [address] Internal Medicine 09/06/22 Paula Reza MD [address] [facility] 200 [place], [place] [address] Assigned PCP 09/09/22 01/05/23 Esha Dewitt MD [address] [address] Assigned Gastroenterology Provider 09/23/22 Valdo Escamilla PA-C [address] [place] [address] Assigned Neuroscience Provider 09/30/22 Nohelia Abarca PA-C 2450 [place] [address] Physician Tub Rider Gastroenterology 10/03/22 Heather Mosquera MD 6545 [facility] 150 [place] [address] Assigned PCP 01/06/23 Fawad York MD 909 [place], [place] [address] Assigned Musculoskeletal Provider 04/27/23 06/25/23 documented as of this encounter
--- OUTSIDE RECORDS SUMMARY | 2023-12-25 08:13 | XMS_ITS | Encounter Summary ---
Author Organization [place] Address [address] [place] [address] Care Team Providers Care Welder Gas Name Role Phone Roopa Almonte MD Unavailable [phone] Maryse Burton PA-C Unavailable [phone] Roopa Almonte MD Unavailable [phone] Griffin Joshi MD Unavailable Rina Magallon RN Unavailable [phone] Paula Reza MD Primary Care Provider [phone] Roopa Almonte MD Unavailable [phone] Rosa Maria Love Unavailable [phone] Augustine Callaway MD Unavailable Porsha Michaels APRN TRACTION POWER ENGINEER Unavailable [phone] aPula Reza MD Unavailable Shahida Sutton APRN TRACTION POWER ENGINEER Unavailable Un available Daylin Ludwig Unavailable [phone] Laurel Velasquez MD Unavailable [phone] Daylin Ludwig Unavailable [phone] Paula Reza MD Unavailable Porsha Michaels APRN TRACTION POWER ENGINEER Unavailable Laurel Velasquez MD Unavailable Shahida Sutton BENCH LATHE OPERATOR TRACTION POWER ENGINEER Unavailable Un available Marilin Montaño TRACTION POWER ENGINEER Unavailable Esha Dewitt MD Unavailable [phone] Heather Mosquera MD Unavailable Paula Reza MD Unavailable Esha Dewitt MD Unavailable [phone] Valdo Escamilla PA-C Unavailable Nohelia Abarca PA-C Unavailable [phone] Heather Mosquera MD Unavailable [phone] aFwad [place] MD Unavailable Reason for Visit * Reason Onset Date Comments information for employers 03/28/2022 Inform ation needed for reasonable accommodations request Encounter Details Date Type Department Care Team (Late st Contact Info) Description 03/28/2022 Telephone [facility] [address] [facility] [address] [place] [address] Porsha Michaels APRN TRACTION POWER ENGINEER [address] [facility] [place] [id number] information for employers (Information needed for reasonable [...] Not Applicable Thank you! [facility] EN REPAIRER CRUSHER documented in this encounter Plan of Treatment [...] Self-Care Behaviors 90%(03/23/19 23 3:12 PM SCREEN REPAIRER CRUSHER) Angelita Diaz RD Note: I will check [...] documented as of this encounter Care Teams Welder Gas Relationship Specialty Start Date End Date Paula Reza MD [address] [address] PCP - General Internal Medicine 08/05/21 Roopa Almonte MD [address] [facility] 200 [place] [address] Endocrinology, Diabetes, and Metabolism 01/19/21 Maryse Burton, PA-C 5200 [place] [address] Physician Jet Operator Dermatology 04/14/21 Roopa Almonte MD [address] [facility] 200 [place] [address] Hospitalist Endocrinology, Diabetes, and Metabolism 05/30/21 Griffin Joshi MD [address] [facility] [address] [place] [address] Cardiovascular Disease 07/25/21 Rina Magallon, RN Lead Power Plant Manager 07/29/21 07/11/22 Roopa Almonte MD [address] [facility] 200 [place], [place] [address] Assigned Endocrinology Provider 09/10/21 Rosa Maria Love CHW Community Health Worker 10/06/21 07/11/22 [place] [address] [facility] 300 [place] [address] Assigned Musculoskeletal Provider 10/15/21 04/26/23 Porsha Michaels APRN TRACTION POWER ENGINEER [address] [place] [address] Assigned Heart and Vascular Provider 02/11/22 05/12/22 Paula Reza MD [address] [address] Assigned PCP 03/25/22 04/07/22 Shahida Sutton APRN TRACTION POWER ENGINEER [address] [address] Assigned PCP 04/08/22 06/30/22 Daylin Ludwig, MI[facility] [address] [address] Cardiac Rehabilitation Therapist 05/16/23 Laurel Velasquez MD [address] [address] Assigned Heart and Vascular Provider 05/13/22 06/30/22 Daylin Ludwig, MIKI [facility] [address] [address] Cardiac Rehabilitation Therapist 06/08/22 06/09/23 Paula Reza MD [address] 200 [place] [address] Assigned PCP 07/01/22 07/07/22 Porsha Michaels APRN TRACTION POWER ENGINEER [address] [place] [address] Assigned Heart and Vascular Provider 07/01/22 07/07/22 Laurel Velasquez MD [address] [address] Assigned Heart and Vascular Provider 07/08/22 08/04/22 Shahida Sutton APRN TRACTION POWER ENGINEER Assigned PCP 07/08/22 09/08/22 Marilin Montaño, TRACTION POWER ENGINEER [address] [address] Assigned Heart and Vascular Provider 08/05/22 Esha Dewitt MD 420 [facility] 36 [place] [address] Gastroenterology 09/06/22 Heather Mosquera MD [address] [place], [place] [address] Internal Medicine 09/06/22 Paula Reza MD [address] [place], [place] [address] Assigned PCP 09/09/22 01/05/23 Esha Dewitt MD 420 [facility] 36 [place], [place] [address] Assigned Gastroenterology Provider 09/23/22 Valdo Escamilla PA-C 6[address] [facility] [address] [place], [place] [address] Assigned Neuroscience Provider 09/30/22 Nohelia Abarca PA-C 2450 [place], [place] [address] Physician Jet Operator Gastroenterology 10/03/22 Heather Mosquera MD [address] [place], [place] [address] Assigned PCP 01/06/23 Fawad York MD 909 [place], [place] [address] Assigned Musculoskeletal Provider 04/27/23 06/25/23 documented as of this encounter
--- OUTSIDE RECORDS SUMMARY | 2023-12-25 08:13 | XMS_ITS | Encounter Summary ---
Author Organization [place] Address [address] [place] [address] Care Team Providers Care Director Of Community Education Name Role Phone Roopa Almonte MD Unavailable [phone] Maryse Burton PA-C Unavailable [phone] Roopa Almonte MD Unavailable [phone] Griffin Joshi MD Unavailable Rina Magallon RN Unavailable [phone] Paula Reza MD Primary Care Provider [phone] Roopa Almonte MD Unavailable [phone] Rosa Maria Love Unavailable [phone] Augustine Callaway MD Unavailable Shahida Sutton APRN YOUTH DEVELOPMENT PROFESSIONAL Unavailable Un available Porsha Michaels APRN YOUTH DEVELOPMENT PROFESSIONAL Unavailable [phone] Paula Reza MD Unavailable Shahida Sutton APRN YOUTH DEVELOPMENT PROFESSIONAL Unavailable Un available Daylin Ludwig Unavailable [phone] Laurel Velasquez MD Unavailable [phone] Daylin Ludwig Unavailable [phone] Paula Reza MD Unavailable Porsha Michaels APRN YOUTH DEVELOPMENT PROFESSIONAL Unavailable [phone] Laurel Velasquez MD Unavailable [phone] HermanIndu huertaprincess Cummings COMPUTER SYSTEMS HARDWARE ANALYST YOUTH DEVELOPMENT PROFESSIONAL Unavailable Un available Marilin Montaño YOUTH DEVELOPMENT PROFESSIONAL Unavailable [phone] Esha Dewitt MD Unavailable [phone] Heather Mosquera MD Unavailable [phone] Paula Reza MD Unavailable Esha Dewitt MD Unavailable [phone] Valdo Escamilla PA-C Unavailable [phone] Nohelia Abarca-C Unavailable [phone] Heather Mosquera MD Unavailable [phone] Fawad York MD Unavailable [phone] Encounter Details Date Type Department Care Team (Late st Contact Info) Description 02/27/2022 MyC Medical Advice [facility] [address] [facility] [address] [place] [address] Carmen Prince, ELECTRICAL ENGINEERING DIRECTOR Social History Tobacco Use Types Packs/Day [...] Coronavirus/COVID-19? No / Unsure 02/21/2022 12:25 PM VOICE OVER ANNOUNCER documented as of this encounter Plan of [...] to Optimize Self-Care Behaviors 90%(03/23/19 3:12 PM VOICE OVER ANNOUNCER) Angelita Diaz RD Note: I will check [...] of this encounter Care Teams Director Of Community Education Relationship Specialty Start Date End Date Paula Reza MD [address] [facility] 200 [place] [address] PCP - General Internal Medicine 08/05/21 Roopa Almonte MD [address] [facility] 200 [place] [address] Endocrinology, Diabetes, and Metabolism 01/19/21 Maryse Burton PA-C 5200 [place] [address] Physician Police Captain Senior Dermatology 04/14/21 Roopa Almonte MD [address] [facility] 200 [place] [address] Hospitalist Endocrinology, Diabetes, and Metabolism 05/30/21 Griffin Joshi MD [address] [facility] [address] [place], [place] [address] Cardiovascular Disease 07/25/21 Rina Magallon, RN Lead Hydrostatic Tubing Tester 07/29/21 07/11/22 Roopa Almonte MD [address] 200 [place] [address] Assigned Endocrinology Provider 09/10/21 Rosa Maria Love CHW Community Health Worker 10/06/21 07/11/22 [place] [address] [facility] 300 [place] [address] Assigned Musculoskeletal Provider 10/15/21 04/26/23 Shahida Sutton APRN YOUTH DEVELOPMENT PROFESSIONAL Assigned PCP 12/24/21 03/24/22 Porsha Michaels APRN YOUTH DEVELOPMENT PROFESSIONAL [address] [address] Assigned Heart and Vascular Provider 02/11/22 05/12/22 Paula Reza MD [address] [place] [address] Assigned PCP 03/25/22 04/07/22 Shahida Sutton APRN YOUTH DEVELOPMENT PROFESSIONAL [address] [place] [address] Assigned PCP 04/08/22 06/30/22 Daylin Ludwig EP [facility] [address] [address] Cardiac Rehabilitation Therapist 05/16/23 Laurel Velasquez MD [address] [address] Assigned Heart and Vascular Provider 05/13/22 06/30/22 Daylin Ludwig EP [facility] [address] [place] [address] Cardiac Rehabilitation Therapist 06/08/22 06/09/23 Paula Reza MD [address] [facility] 200 [place], [place] [address] Assigned PCP 07/01/22 07/07/22 Porsha Michaels APRN YOUTH DEVELOPMENT PROFESSIONAL [address] [place] [address] Assigned Heart and Vascular Provider 07/01/22 07/07/22 Laurel Velasquez MD [address] [place] [address] Assigned Heart and Vascular Provider 07/08/22 08/04/22 Shahida Sutton APRN YOUTH DEVELOPMENT PROFESSIONAL Assigned PCP 07/08/22 09/08/22 Marilin Montaño, YOUTH DEVELOPMENT PROFESSIONAL [address] [place] [address] Assigned Heart and Vascular Provider 08/05/22 Esha Dewitt MD [address] [place] [address] 36 [place], [place] [address] Gastroenterology 09/06/22 Heather Mosquera MD [address] [place] [address] Internal Medicine 09/06/22 Paula Reza MD 303 E [facility] 200 [place] [address] Assigned PCP 09/09/22 01/05/23 Esha Dewitt MD 420 [facility] 36 [place], [place] [address] Assigned Gastroenterology Provider 09/23/22 Vadlo Escamilla PA-C 6[address] [facility] [address] [place], [place] [address] Assigned Neuroscience Provider 09/30/22 Nohelia Abarca PA-C 2450 [facility] [place] [place] [address] Physician Police Captain Senior Gastroenterology 10/03/22 Heather Mosquera MD 6545 [facility] 150 [place], [place] [address] Assigned PCP 01/06/23 Fawad York MD 909 [place], [place] [address] Assigned Musculoskeletal Provider 04/27/23 06/25/23 documented as of this encounter
--- OUTSIDE RECORDS SUMMARY | 2023-12-25 08:13 | XMS_ITS | Encounter Summary ---
Author Organization [place] Address [address] [place] [address] Care Team Providers Care Cracking And Fanning 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 Name Role Phone Roopa Almonte MD Unavailable [phone] Maryse Burton PA-C Unavailable [phone] Roopa Almonte MD Unavailable [phone] Griffin Joshi MD Unavailable Rina Magallon RN Unavailable [phone] Paula Reza MD Primary Care Provider [phone] Roopa Almonte MD Unavailable [phone] Rosa Maria Love Unavailable [phone] Augustine Callaway MD Unavailable Shahida Sutton APRN TECHNICAL OPERATIONS VICE PRESIDENT Unavailable Un available Porsha Michaels APRN TECHNICAL OPERATIONS VICE PRESIDENT Unavailable [phone] Paula Reza MD Unavailable Shahida Sutton APRN TECHNICAL OPERATIONS VICE PRESIDENT Unavailable Un available Daylin Ludwig Unavailable [phone] Laurel Velasquez MD Unavailable [phone] Daylin Ludwig Unavailable [phone] Paula Reza MD Unavailable Porsha Michaels APRN TECHNICAL OPERATIONS VICE PRESIDENT Unavailable [phone] Laurel Velasquez MD Unavailable [phone] HermanIndu huertaprincess Cummings SALES PRODUCT SPECIALIST TECHNICAL OPERATIONS VICE PRESIDENT Unavailable Un available Marilin Montaño TECHNICAL OPERATIONS VICE PRESIDENT Unavailable [phone] Esha Dewitt MD Unavailable [phone] Heather Mosquera MD Unavailable [phone] Paula Reza MD Unavailable Esha Dewitt MD Unavailable [phone] Valdo Escamilla PA-C Unavailable [phone] Nohelia Abarca PA-C Unavailable [phone] Heather Mosquera MD Unavailable [phone] Fawad York MD Unavailable [phone] Encounter Details Date Type Department Care Team (Late st Contact Info) Description 03/13/2022 MyC Medical Advice [facility] [address] [address] Fawad [place] MD [address] [place] [address] Social History Tobacco Use Types Packs/Day [...] Coronavirus/COVID-19? No / Unsure 02/21/2022 12:25 PM CLINICAL ASST documented as of this encounter Plan of [...] to Optimize Self-Care Behaviors Angelita Diza RD Monitoring - monitor glucose and ketones as directed Care Plan Diabetes Self-Management Education Needed to Optimize Self-Care Behaviors 90%(03/23/19 3:12 PM CLINICAL ASST) Angelita Diaz RD Note: I will check [...] documented as of this encounter Care Teams Cracking And Fanning 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 Relationship Specialty Start Date End Date Paula Reza MD [address] [address] PCP - General Internal Medicine 08/05/21 Roopa Almonte MD [address] [facility] 200 [place], [place] [address] Endocrinology, Diabetes, and Metabolism 01/19/21 Maryse Burton, PAAna MariaC 5200 [place] [address] Physician Family Welfare Social Work Professor Dermatology 04/14/21 Roopa Almonte MD [address] [facility] 200 [place], [place] [address] Hospitalist Endocrinology, Diabetes, and Metabolism 05/30/21 Griffin Joshi MD [address] [facility] [address] [place] [address] Cardiovascular Disease 07/25/21 Rina Magallon, RN Lead Dietitian 07/29/21 07/11/22 Roopa Almonte MD [address] [facility] 200 [place], [place] [address] Assigned Endocrinology Provider 09/10/21 Rosa Maria Love W Community Health Worker 10/06/21 07/11/22 [place] [address] [facility] 300 [place] [address] Assigned Musculoskeletal Provider 10/15/21 04/26/23 Shahida Sutton APRN TECHNICAL OPERATIONS VICE PRESIDENT Assigned PCP 12/24/21 03/24/22 Porsha Michaels APRN TECHNICAL OPERATIONS VICE PRESIDENT [address] [address] Assigned Heart and Vascular Provider 02/11/22 05/12/22 Paula Reza MD [address] [place] [address] Assigned PCP 03/25/22 04/07/22 Shahida Sutton APRN TECHNICAL OPERATIONS VICE PRESIDENT [address] [place] [address] Assigned PCP 04/08/22 06/30/22 Daylin Ludwig EP [facility] [address] [address] Cardiac Rehabilitation Therapist 05/16/23 Laurel Velasquez MD [address] [address] Assigned Heart and Vascular Provider 05/13/22 06/30/22 Daylin Ludwig EP [facility] [address] [address] Cardiac Rehabilitation Therapist 06/08/22 06/09/23 Puala Reza MD [address] [facility] 200 [place], [place] [address] Assigned PCP 07/01/22 07/07/22 Porsha Michaels APRN TECHNICAL OPERATIONS VICE PRESIDENT [address] [address] Assigned Heart and Vascular Provider 07/01/22 07/07/22 Laurel Velasquez MD [address] [place] [address] Assigned Heart and Vascular Provider 07/08/22 08/04/22 Shahida Sutton APRN TECHNICAL OPERATIONS VICE PRESIDENT Assigned PCP 07/08/22 09/08/22 Marilin Montaño, TECHNICAL OPERATIONS VICE PRESIDENT [address] [place] [address] Assigned Heart and Vascular Provider 08/05/22 Esha Dewitt MD [address] [place] [address] 36 [place], [place] [address] Gastroenterology 09/06/22 Heather Mosquera MD [address] [place] [address] Internal Medicine 09/06/22 Paula Reza MD [address] [place] [address] Assigned PCP 09/09/22 01/05/23 Esha Dewitt MD 420 [facility] 36 [place], [place] [address] Assigned Gastroenterology Provider 09/23/22 Valdo Escamilla PA-C [address] [facility] [address] [place], [place] [address] Assigned Neuroscience Provider 09/30/22 Nohelia Abarca PA-C 2450 [place], [place] [address] Physician Family Welfare Social Work Professor Gastroenterology 10/03/22 Heather Mosquera MD [address] [place] [address] Assigned PCP 01/06/23 Fawad [place] MD 909 [place], [place] [address] Assigned Musculoskeletal Provider 04/27/23 06/25/23 documented as of this encounter
--- OUTSIDE RECORDS SUMMARY | 2023-12-25 08:13 | XMS_ITS | Encounter Summary ---
Author Organization [place] Address [address] [place] [address] Care Team Providers Care General Engineer Name Role Phone Shahida Suttontim ZEPEDA CNP Unavailable Un available Roopa Almonte MD Unavailable [phone] Augustine Callaway MD Unavailable Maryse Burton PA-C Unavailable Roopa Almonte MD Unavailable [phone] Griffin Joshi MD Unavailable Rina Magallon RN Unavailable [phone] Paula Reza MD Primary Care Provider [phone] Griffin Joshi MD Unavailable Roopa Almonte MD Unavailable [phone] Basilio Morillo DO Unavailable Lydia BernsteinC Unavailable Rosa Maria Love Unavailable [phone] Augustine Callaway MD Unavailable Paula Reza MD Unavailable Keerthi Miner APRN SECURITY GUARD SUPERVISOR Unavailable Herman, Shahida Cummings APRN SECURITY GUARD SUPERVISOR Unavailable Un available Porsha Michaels APRN SECURITY GUARD SUPERVISOR Unavailable [phone] Paula Reza MD Unavailable Herman, Shahida Cummings APRN SECURITY GUARD SUPERVISOR Unavailable Un available Daylin Ludwig Unavailable [phone] Laurel Velasquez MD Unavailable [phone] Daylin Ludwig EP Unavailable [phone] Paula Reza MD Unavailable Porsha Michaels APRN SECURITY GUARD SUPERVISOR Unavailable [phone] Laurel Velasquez MD Unavailable Herman, Shahida Cummings APRN SECURITY GUARD SUPERVISOR Unavailable Un available Marilin Montaño SECURITY GUARD SUPERVISOR Unavailable [phone] Esha Dewitt MD Unavailable [phone] Heather Mosquera MD Unavailable [phone] Paula Reza MD Unavailable Esha Dewitt MD Unavailable [phone] Valdo Escamilla PA-C Unavailable [phone] Nohelia Abarca PA-C Unavailable [phone] Heather Mosquera MD Unavailable [phone] Fawad York MD Unavailable [phone] Encounter Details Date Type Department Care Team (Late st Contact Info) Description 09/08/2021 MyC Medical Advice [place] [address] [address] Denisse Gamboa, RN Social [...] documented as of this encounter Care Teams General Engineer Relationship Specialty Start Date End Date Paula Reza MD [address] [place] [address] PCP - General Internal Medicine 08/05/21 Shahida Sutton APRN SECURITY GUARD SUPERVISOR Assigned PCP 07/12/14 09/30/21 Roopa Almonte MD [address] [place] [address] Endocrinology, Diabetes, and Metabolism 01/19/21 [place] [address] [facility] 300 [place] [address] Assigned Musculoskeletal Provider 02/06/21 09/16/21 Maryse Burton PA-C 5200 [place] [address] Physician Hide Curer Dermatology 04/14/21 Roopa Almonte MD [address] E [facility] 200 [place] [address] Hospitalist Endocrinology, Diabetes, and Metabolism 05/30/21 Griffin Joshi MD [address] [facility] [address] [place] [address] Cardiovascular Disease 07/25/21 Rina Magallon, RN Lead Coil Repair Technician 07/29/21 07/11/22 Griffin Joshi MD [address] [facility] [address] [place] [address] Assigned Heart and Vascular Provider 08/06/21 10/07/21 Roopa Almonte MD [address] [facility] 200 [place], [place] [address] Assigned Endocrinology Provider 09/10/21 [place] [address] [facility] [address] [address] Assigned Musculoskeletal Provider 09/17/21 10/14/21 Lydia Bernstein PA-C [address] [place] [address] Assigned PCP 10/01/21 10/21/21 Rosa Maria Love W Community Health Worker 10/06/21 07/11/22 [place] [address] [address] [place] [address] Assigned Musculoskeletal Provider 10/15/21 04/26/23 Paula Reza MD [address] [place] [address] Assigned PCP 10/22/21 12/23/21 Keerthi Miner APRN SECURITY GUARD SUPERVISOR [address] [place] [address] Assigned Heart and Vascular Provider 10/08/21 02/10/22 Shahida Sutton APRN SECURITY GUARD SUPERVISOR Assigned PCP 12/24/21 03/24/22 Porsha Michaels APRN SECURITY GUARD SUPERVISOR [address] [place] [address] Assigned Heart and Vascular Provider 02/11/22 05/12/22 Paula Reza MD [address] [place] [address] Assigned PCP 03/25/22 04/07/22 Shahida Sutton APRN SECURITY GUARD SUPERVISOR [address] [place] [address] Assigned PCP 04/08/22 06/30/22 Daylin Ludwig EP [facility] [address] [place] [address] Cardiac Rehabilitation Therapist 05/16/23 Laurel Velasquez MD [address] [place] [address] Assigned Heart and Vascular Provider 05/13/22 06/30/22 Daylin Ludwig, EP [facility] [address] [place] [address] Cardiac Rehabilitation Therapist 06/08/22 06/09/23 Paula Reza MD [address] [address] Assigned PCP 07/01/22 07/07/22 Porsha Michaels APRN SECURITY GUARD SUPERVISOR [address] [place] [address] Assigned Heart and Vascular Provider 07/01/22 07/07/22 Laurel Velasquez MD [address] [place] [address] Assigned Heart and Vascular Provider 07/08/22 08/04/22 Shahida Sutton APRN SECURITY GUARD SUPERVISOR Assigned PCP 07/08/22 09/08/22 Marilin Montaño, SECURITY GUARD SUPERVISOR [address] [place] [address] Assigned Heart and Vascular Provider 08/05/22 Esha Dewitt MD [address] [address] Gastroenterology 09/06/22 Heather Mosquera MD 6545 [facility] 150 [place] [address] Internal Medicine 09/06/22 Paula Reza MD [address] [facility] 200 [place] [address] Assigned PCP 09/09/22 01/05/23 Esha Dewitt MD [address] [address] Assigned Gastroenterology Provider 09/23/22 Valdo Escamilla PA-C 6363 [facility] 103 [place] [address] Assigned Neuroscience Provider 09/30/22 Nohelia Abarca PA-C 2450 [place] [address] Physician Hide Curer Gastroenterology 10/03/22 Heather Mosquera MD 6545 [facility] 150 [place] [address] Assigned PCP 01/06/23 Fawad [place] MD 909 [place], [place] [address] Assigned Musculoskeletal Provider 04/27/23 06/25/23 documented as of this encounter
--- OUTSIDE RECORDS SUMMARY | 2023-12-25 08:13 | XMS_ITS | Encounter Summary ---
Author Organization [place] Address [address] [place] [address] Care Team Providers Care Jerker Name Role Phone Roopa Almonte MD Unavailable [phone] Maryse Burton PA-C Unavailable [phone] Roopa Almonte MD Unavailable [phone] Griffin Joshi MD Unavailable Rina Magallon RN Unavailable [phone] Paula Reza MD Primary Care Provider [phone] Roopa Almonte MD Unavailable [phone] Rosa Maria Love Unavailable [phone] Augustine Callaway MD Unavailable Keerthi Miner APRN CERTIFICATION AND SELECTION SPECIALIST Unavailable [phone] Shahida Sutton APRN CERTIFICATION AND SELECTION SPECIALIST Unavailable Un available Porsha Michaels APRN CERTIFICATION AND SELECTION SPECIALIST Unavailable [phone] Paula Reza MD Unavailable HermanShahida huerta APRN CERTIFICATION AND SELECTION SPECIALIST Unavailable Un available Daylin Ludwig Unavailable [phone] Laurel Velasquez MD Unavailable OzielDaylin Marquita LIVING[place]ON Unavailable [phone] Paula Reza MD Unavailable Porsha Michaels APRN CERTIFICATION AND SELECTION SPECIALIST Unavailable Laurel Velasquez MD Unavailable Shahida Sutton APRN CERTIFICATION AND SELECTION SPECIALIST Unavailable Un available Marilin Montaño CERTIFICATION AND SELECTION SPECIALIST Unavailable Esha Dewitt MD Unavailable [phone] Heather Mosquera MD Unavailable [phone] Paula Reza MD Unavailable Esha Dewitt MD Unavailable [phone] Valdo Escamilla PA-C Unavailable [phone] Nohelia Abarca PA-C Unavailable [phone] Heather Mosquera MD Unavailable [phone] Fawad York MD Unavailable [phone] Encounter Details Date Type Department Care Team (Late st Contact Info) Description 01/10/2022 [facility]ology [facility] [address] [address] [facility] Social History Tobacco Use Types Packs/Day Years [...] Coronavirus/COVID-19? No / Unsure 01/12/2022 10:27 AM EXECUTIVE CHEF ASSISTANT documented as of this encounter Plan of Treatment Not on file documented as of this encounter Visit Diagnoses Not on filedocumented in this encounter Additional Health Concerns Infection Onset Date Last Indicated Resolved Time ESBL 01/05/2021 01/05/2021 Assessment Noted Time PHQ-9 Depression Total Score: 7 01/04/20 22 4:11 PM CDT documented as of this encounter Care Teams Jerker Relationship Specialty Start Date End Date Paula Reza MD [address] [address] PCP - General Internal Medicine 08/05/21 Roopa Almonte MD [address] [facility] [address] [address] Endocrinology, Diabetes, and Metabolism 01/19/21 Maryse Burton, PAAna MariaC [address] [place] [address] Physician Steeple Jack Dermatology 04/14/21 Roopa Almonte MD [address] [address] Hospitalist Endocrinology, Diabetes, and Metabolism 05/30/21 Griffin Joshi MD [address] [place] [address] Cardiovascular Disease 07/25/21 Rina Magallon, RN Lead Youth Counselor 07/29/21 07/11/22 Roopa Almonte MD [address] [facility] 200 [place], [place] [address] Assigned Endocrinology Provider 09/10/21 Rosa Maria Love CHW Community Health Worker 10/06/21 07/11/22 [place] [address] [facility] 300 [place] [address] Assigned Musculoskeletal Provider 10/15/21 04/26/23 Keerthi Miner APRN CERTIFICATION AND SELECTION SPECIALIST [address] [place] [id number] Assigned Heart and Vascular Provider 10/08/21 02/10/22 Shahida Sutton, DUANE CERTIFICATION AND SELECTION SPECIALIST Assigned PCP 12/24/21 03/24/22 Porsha Michaels APRN CERTIFICATION AND SELECTION SPECIALIST [address] [place] [id number] Assigned Heart and Vascular Provider 02/11/22 05/12/22 Paula Reza MD [address] [facility] 200 [place], [place] [address] Assigned PCP 03/25/22 04/07/22 Shahida Sutton APRN CERTIFICATION AND SELECTION SPECIALIST [address] [place] [address] Assigned PCP 04/08/22 06/30/22 Daylin Ludwig, [facility] [address] [place] [address] Cardiac Rehabilitation Therapist 05/16/23 Laurel Velasquez MD [address] [place] [address] Assigned Heart and Vascular Provider 05/13/22 06/30/22 Daylin Ludwig, [facility] [address] [id number] Cardiac Rehabilitation Therapist 06/08/22 06/09/23 Paula Reza MD [address] [place] [address] Assigned PCP 07/01/22 07/07/22 Porsha Michaels APRN CERTIFICATION AND SELECTION SPECIALIST [address] [address] Assigned Heart and Vascular Provider 07/01/22 07/07/22 Laurel Velasquez MD [address] [id number] Assigned Heart and Vascular Provider 07/08/22 08/04/22 Shahida Sutton APRN CERTIFICATION AND SELECTION SPECIALIST Assigned PCP 07/08/22 09/08/22 Marilin Montaño, CERTIFICATION AND SELECTION SPECIALIST [address] [place] [address] Assigned Heart and Vascular Provider 08/05/22 Esha Dewitt MD [address] [address] Gastroenterology 09/06/22 Heather Mosquera MD [address] [place], [place] [address] Internal Medicine 09/06/22 Paula Reza MD [address] [facility] 200 [place] [address] Assigned PCP 09/09/22 01/05/23 Esha Dewitt MD [address] [address] Assigned Gastroenterology Provider 09/23/22 Valdo Escamilla PA-C [address] [facility] [address] [place] [address] Assigned Neuroscience Provider 09/30/22 Nohelia Abarca PA-C [address] [place] [address] Physician Steeple Jack Gastroenterology 10/03/22 Heather Mosquera MD [address] [place] [address] Assigned PCP 01/06/23 Fawad York MD [address] [place] [address] Assigned Musculoskeletal Provider 04/27/23 06/25/23 documented as of this encounter
--- OUTSIDE RECORDS SUMMARY | 2023-12-25 08:13 | XMS_ITS | Encounter Summary ---
Author Organization [place] Address [address] [place] [address] Care Team Providers Care Asphalt Worker Name Role Phone Shahida Suttontim ZEPEDA CNP Unavailable Un available Roopa Almonte MD Unavailable [phone] Augustine Callaway MD Unavailable Maryse Burton PA-C Unavailable Roopa Almonte MD Unavailable [phone] Griffin Joshi MD Unavailable Rina Magallon RN Unavailable [phone] Paula Reza MD Primary Care Provider [phone] Griffin Joshi MD Unavailable Roopa Almonte MD Unavailable [phone] Basilio Morillo DO Unavailable [phone] Lydia BernsteinC Unavailable Rosa Maria Love Unavailable [phone] Augustine Callaway MD Unavailable Paula Reza MD Unavailable Keerthi Miner CONDUCTOR ORCHESTRA GIN INSPECTOR Unavailable [phone] Herman, Shahida Cummings APRN GIN INSPECTOR Unavailable Un available Porsha Michaels APRN GIN INSPECTOR Unavailable [phone] Paula Reza MD Unavailable Herman, Shahida Cummings APRN GIN INSPECTOR Unavailable Un available Daylin Ludwig Unavailable [phone] Laurel Velasquez MD Unavailable [phone] Daylin Ludwig EP Unavailable [phone] Paula Reza MD Unavailable Porsha Michaels APRN GIN INSPECTOR Unavailable [phone] Laurel Velasquez MD Unavailable [phone] Herman, Shahida Cummings APRN GIN INSPECTOR Unavailable Un available Marilin Montaño GIN INSPECTOR Unavailable [phone] Esha Dewitt MD Unavailable [phone] Heather Mosquera MD Unavailable [phone] Paula Reza MD Unavailable Esha Dewitt MD Unavailable [phone] Valdo Escamilla PA-C Unavailable [phone] Nohelia Abarca PA-C Unavailable [phone] Heather Mosquera MD Unavailable [phone] Fawad York MD Unavailable [phone] Encounter Details Date Type Department Care Team (Late st Contact Info) Description 08/29/2021 [facility] [address] [address] [facility] Social History Tobacco Use Types Packs/Day Years [...] documented as of this encounter Care Teams Asphalt Worker Relationship Specialty Start Date End Date Paual Reza MD [address] [facility] 200 [place] [address] PCP - General Internal Medicine 08/05/21 Shahida Sutton APRN GIN INSPECTOR Assigned PCP 07/12/14 09/30/21 Roopa Almonte MD [address] [facility] 200 [place] [address] Endocrinology, Diabetes, and Metabolism 01/19/21 [place] [address] [facility] [address] [place] [address] Assigned Musculoskeletal Provider 02/06/21 09/16/21 Maryse Burton PA-C [address] [place] [address] Physician Restoration Technician Dermatology 04/14/21 Roopa Almonte MD [address] [facility] 200 [place] [address] Hospitalist Endocrinology, Diabetes, and Metabolism 05/30/21 Griffin Joshi MD [address] [facility] [address] [place] [address] Cardiovascular Disease 07/25/21 Rina Magallon, RN Lead Landscaping And Groundskeeping Laborer 07/29/21 07/11/22 Griffin Joshi MD [address] [facility] [address] [place] [address] Assigned Heart and Vascular Provider 08/06/21 10/07/21 Roopa Almonte MD [address] [facility] 200 [place], [place] [address] Assigned Endocrinology Provider 09/10/21 [place] [address] [facility] [address] [address] Assigned Musculoskeletal Provider 09/17/21 10/14/21 Lydia Bernstein PA-C [address] [place] [address] Assigned PCP 10/01/21 10/21/21 Rosa Maria Love CHW Community Health Worker 10/06/21 07/11/22 [place] [address] [place] [address] Assigned Musculoskeletal Provider 10/15/21 04/26/23 Paula Reza MD [address] [place] [address] Assigned PCP 10/22/21 12/23/21 Keerthi Miner APRN GIN INSPECTOR [address] [place] [address] Assigned Heart and Vascular Provider 10/08/21 02/10/22 Shahida Sutton APRN GIN INSPECTOR Assigned PCP 12/24/21 03/24/22 Porsha Michaels APRN GIN INSPECTOR [address] [place] [address] Assigned Heart and Vascular Provider 02/11/22 05/12/22 Paula Reza MD [address] [place] [address] Assigned PCP 03/25/22 04/07/22 Shahida Sutton APRN GIN INSPECTOR [address] [place] [address] Assigned PCP 04/08/22 06/30/22 Daylin Ludwig, MIKI [facility] [address] [place] [address] Cardiac Rehabilitation Therapist 05/16/23 Laurel Velasquez MD [address] [place] [address] Assigned Heart and Vascular Provider 05/13/22 06/30/22 Daylin Ludwig, MIKI [facility] [address] [place] [address] Cardiac Rehabilitation Therapist 06/08/22 06/09/23 Paula Reza MD [address] [address] Assigned PCP 07/01/22 07/07/22 Porsha Michaels APRN GIN INSPECTOR [address] [place] [address] Assigned Heart and Vascular Provider 07/01/22 07/07/22 Laurel Velasquez MD [address] [place] [address] Assigned Heart and Vascular Provider 07/08/22 08/04/22 Shahida Sutton, DUANE GIN INSPECTOR Assigned PCP 07/08/22 09/08/22 Marilin Montaño, GIN INSPECTOR [address] [place] [address] Assigned Heart and Vascular Provider 08/05/22 Esha Dewitt MD 420 [facility] 36 [place] [address] Gastroenterology 09/06/22 Heather Mosquera MD [address] [place] [address] Internal Medicine 09/06/22 Paula Reza MD [address] [facility] 200 [place] [address] Assigned PCP 09/09/22 01/05/23 Esha Dewitt MD [address] [address] Assigned Gastroenterology Provider 09/23/22 Valdo Escamilla PA-C [address] [facility] [address] [place] [address] Assigned Neuroscience Provider 09/30/22 Nohelia Abarca PA-C [address]50 [place] [address] Physician Restoration Technician Gastroenterology 10/03/22 Heather Mosquera MD [address] [place], [place] [address] Assigned PCP 01/06/23 Fawad Yokr MD [address] [place], [place] [address] Assigned Musculoskeletal Provider 04/27/23 06/25/23 documented as of this encounter
--- OUTSIDE RECORDS SUMMARY | 2023-12-25 08:13 | XMS_ITS | Encounter Summary ---
Author Organization [place] Address [address] [address] Care Team Providers Care Propeller Inspector Name Role Phone HermanShahida APRN HEALTH AIDE Primary Care Provi ford Unavailable Shahida Sutton APRN HEALTH AIDE Unavailable Un available Carolynn Ramon RN Unavailable [phone] Anabela Barakat APRN HEALTH AIDE Unavailable Roopa Almonte MD Unavailable [phone] Augustine Callaway MD Unavailable Maryse Burton PA-C Unavailable [phone] Roopa Almonte MD Unavailable [phone] Griffin Joshi MD Unavailable Rina Magallon RN Unavailable [phone] Paula Reza MD Primary Care Provider [phone] Griffin Joshi MD Unavailable Roopa Almonte MD Unavailable [phone] Basilio Morillo DO Unavailable [phone] Lydia Bernstein PA-C Unavailable Kate Rosa Maria CHW Unavailable Augustine Callaway MD Unavailable Paula Reza MD Unavailable Keerthi Miner APRN HEALTH AIDE Unavailable Herman, Shahida Cummings APRN HEALTH AIDE Unavailable Un available Porsha Michaels APRN HEALTH AIDE Unavailable [phone] Paula Reza MD Unavailable Herman, Shahida Cummings APRN HEALTH AIDE Unavailable Un available Daylin Ludwig EP Unavailable [phone] Laurel Velasquez MD Unavailable FieteDaylin hernandez EP Unavailable [phone] Paula Reza MD Unavailable Porsha Michaels APRN HEALTH AIDE Unavailable [phone] Laurel Velasquez MD Unavailable [phone] Herman, Shahida Cummings APRN HEALTH AIDE Unavailable Un available Marilin Montaño HEALTH AIDE Unavailable Esha Dewitt MD Unavailable [phone] Heather Mosquera MD Unavailable [phone] Paula Reza MD Unavailable Esha Dewitt MD Unavailable [phone] Valdo Escamilla PA-C Unavailable [phone] Nohelia Abarca PA-C Unavailable [phone] Heather Mosquera MD Unavailable [phone] Fawad York MD Unavailable [phone] Reason for Visit * Reason Onset Date Comments Anticoagulation 07/15/2021 INR overdue Encounter Details Date Type Department Care Team (Latest Contact Info) Description 07/15/2021 Documentation Only [facility] Anticoagulation Clinic [address] [place] [phone] Aneta Thurman RN Anticoagulation (INR overdue) Social [...] documented as of this encounter Care Teams Propeller Inspector Relationship Specialty Start Date End Date Shahida Sutton APRN HEALTH AIDE PCP - General Nurse Practitioner 08/17/14 08/04/21 Paula Reza MD [address] [facility] 200 [place] [address] PCP - General Internal Medicine 08/05/21 Shahida Sutton APRN HEALTH AIDE Assigned PCP 07/12/14 09/30/21 Carolynn Ramon RN Personal Advocate & Liaison (PAL) 12/17/18 08/07/21 Anabela Barakat APRN HEALTH AIDE 1700 [place] [address] Assigned Heart and Vascular Provider 08/15/20 08/05/21 Roopa Almonte MD [address] [facility] 200 [place] [address] Endocrinology, Diabetes, and Metabolism 01/19/21 [place] [address] [facility] 300 [place] [address] Assigned Musculoskeletal Provider 02/06/21 09/16/21 Maryse Burton PA-C [address] [place] [address] Physician Supervisor Mold Construction Dermatology 04/14/21 Roopa Almonte MD [address] [facility] 200 [place], [place] [address] Hospitalist Endocrinology, Diabetes, and Metabolism 05/30/21 Griffin Joshi MD [address] [facility] [address] [place] [address] Cardiovascular Disease 07/25/21 Rina Magallon, RN Lead Loan Supervisor 07/29/21 07/11/22 Griffin Joshi MD [address] [facility] [address] [place] [address] Assigned Heart and Vascular Provider 08/06/21 10/07/21 Roopa Almonte MD [address] [facility] [address] [place], [place] [address] Assigned Endocrinology Provider 09/10/21 [place] [address] [facility] [address] [place] [address] Assigned Musculoskeletal Provider 09/17/21 10/14/21 Lydia Bernstein PA-C [address] [place] [address] Assigned PCP 10/01/21 10/21/21 Rosa Maria Love CHW Community Health Worker 10/06/21 07/11/22 [place] [address] [facility] [address] [place] [address] Assigned Musculoskeletal Provider 10/15/21 04/26/23 Paula Reza MD [address] [facility] 200 [place], [place] [address] Assigned PCP 10/22/21 12/23/21 Keerthi Miner APRN HEALTH AIDE [address] [place] [address] Assigned Heart and Vascular Provider 10/08/21 02/10/22 Shahida Sutton APRN HEALTH AIDE Assigned PCP 12/24/21 03/24/22 Porsha Michaels APRN HEALTH AIDE [address] [address] Assigned Heart and Vascular Provider 02/11/22 05/12/22 Paula Reza MD [address] [place] [address] Assigned PCP 03/25/22 04/07/22 Shahida Sutton APRN HEALTH AIDE [address] [place] [address] Assigned PCP 04/08/22 06/30/22 Daylin Ludwig, MIKI [facility] [address] [place] [address] Cardiac Rehabilitation Therapist 05/16/23 Laurel Velasquez MD [address] [place] [address] Assigned Heart and Vascular Provider 05/13/22 06/30/22 Daylin Ludwig, [facility] [address] [place] [address] Cardiac Rehabilitation Therapist 06/08/22 06/09/23 Paula Reza MD [address] [place] [address] Assigned PCP 07/01/22 07/07/22 Porsha Michaels APRN HEALTH AIDE [address] [place] [address] Assigned Heart and Vascular Provider 07/01/22 07/07/22 Laurel Velasquez MD [address] [place] [address] Assigned Heart and Vascular Provider 07/08/22 08/04/22 Shahida Sutton APRN HEALTH AIDE Assigned PCP 07/08/22 09/08/22 Marilin Montaño, PAULA [address] [place] [address] Assigned Heart and Vascular Provider 08/05/22 Esha Dewitt MD 420 [facility] 36 [place] [address] MD Gastroenterology 09/06/22 Heather Mosquera MD [address] [facility] [address] [place], [place] [address] Internal Medicine 09/06/22 Paula Reza MD [address] E [facility] 200 [place] [address] Assigned PCP 09/09/22 01/05/23 Esha Dewitt MD 420 [facility] 36 [place] [address] Assigned Gastroenterology Provider 09/23/22 Valdo Escamilla PA-C [address] [facility] [address] [place] [address] Assigned Neuroscience Provider 09/30/22 Nohelia Abarca PA-C [address] [place], [place] [address] Physician Supervisor Mold Construction Gastroenterology 10/03/22 Heather Mosquera MD [address] [place], [place] [address] Assigned PCP 01/06/23 Fawad York MD 9 [place] [address] Assigned Musculoskeletal Provider 04/27/23 06/25/23 documented as of this encounter
--- OUTSIDE RECORDS SUMMARY | 2023-12-25 08:13 | XMS_ITS | Encounter Summary ---
Author Organization [facility] Address [address] [place] [address] Care Team Providers Care Trommel Tender Name Role Phone Shahida Suttontim ZEPEDA CNP Unavailable Un available Roopa Almonte MD Unavailable [phone] Augustine Callaway MD Unavailable Maryse Burton PA-C Unavailable Roopa Almonte MD Unavailable [phone] Griffin Joshi MD Unavailable Rina Magallon RN Unavailable [phone] Paula Reza MD Primary Care Provider [phone] Griffin Joshi MD Unavailable Roopa Almonte MD Unavailable [phone] Basilio Morillo DO Unavailable [phone] Lydia BernsteinC Unavailable Rosa Maria Love Unavailable [phone] Augustine Callaway MD Unavailable Paula Reza MD Unavailable Keerthi Miner CIVIL PROJECT ENGINEER HOME HEALTH CARE CASE MANAGER Unavailable Herman, Shahida Cummings APRN HOME HEALTH CARE CASE MANAGER Unavailable Un available Porsha Michaels APRN HOME HEALTH CARE CASE MANAGER Unavailable [phone] Paula Reza MD Unavailable Herman, Shahida Cummings APRN HOME HEALTH CARE CASE MANAGER Unavailable Un available Daylin Ludwig Unavailable [phone] Laurel Velasquez MD Unavailable [phone] Daylin Ludwig EP Unavailable [phone] Paula Reza MD Unavailable Porsha Michaels APRN HOME HEALTH CARE CASE MANAGER Unavailable +[phone] Laurel Velasquez MD Unavailable [phone] Herman, Shahida Cummings APRN HOME HEALTH CARE CASE MANAGER Unavailable Un available Marilin Monatño HOME HEALTH CARE CASE MANAGER Unavailable [phone] Esha Dewitt MD Unavailable [phone] Heather Mosquera MD Unavailable [phone] Paula Reza MD Unavailable Esha Dewitt MD Unavailable [phone] Valdo Escamilla PA-C Unavailable + [phone] Nohelia Abarca PA-C Unavailable [phone] Heather Mosquera MD Unavailable [phone] Fawad York MD Unavailable [phone] Encounter Details Date Type Department Care Team (Late st Contact Info) Description 08/09/2021 MyC Medical Advice [facility] [address] [place] [id number] Jessica Ramires RN Social History Tobacco Use Types Packs/Day [...] documented as of this encounter Care Teams Trommel Tender Relationship Specialty Start Date End Date Paula Reza MD [address] 200 [place] [address] PCP - General Internal Medicine 08/05/21 Shahida Sutton APRN HOME HEALTH CARE CASE MANAGER Assigned PCP 07/12/14 09/30/21 Roopa Almonte MD [address] [facility] 200 [place] [address] Endocrinology, Diabetes, and Metabolism 01/19/21 [place] [address] [facility] 300 [place] [address] Assigned Musculoskeletal Provider 02/06/21 09/16/21 Maryse Burton PA-C 5200 [place] [address] Physician Wire Charger Dermatology 04/14/21 Roopa Almonte MD [address] [facility] 200 [place] [address] Hospitalist Endocrinology, Diabetes, and Metabolism 05/30/21 Griffin Joshi MD [address] [facility]00 [place] [address] Cardiovascular Disease 07/25/21 Rina Magallon, RN Lead Software Test Manager 07/29/21 07/11/22 Griffin Joshi MD [address] [facility]00 [place] [address] Assigned Heart and Vascular Provider 08/06/21 10/07/21 Roopa Almonte MD [address] [facility] 200 [place], [place] [address] Assigned Endocrinology Provider 09/10/21 [place] [address] [facility] [place] [address] Assigned Musculoskeletal Provider 09/17/21 10/14/21 Lydia Bernstein PA-C [address] [place] [address] Assigned PCP 10/01/21 10/21/21 Rosa Maria Love CHW Community Health Worker 10/06/21 07/11/22 [place] [address] [place] [address] Assigned Musculoskeletal Provider 10/15/21 04/26/23 Paula Reza MD [address] 200 [place] [address] Assigned PCP 10/22/21 12/23/21 Keerthi Miner APRN HOME HEALTH CARE CASE MANAGER [address] [place] [address] Assigned Heart and Vascular Provider 10/08/21 02/10/22 Shahida Sutton APRN HOME HEALTH CARE CASE MANAGER Assigned PCP 12/24/21 03/24/22 Porsha Michaels APRN HOME HEALTH CARE CASE MANAGER [address] [place] [address] Assigned Heart and Vascular Provider 02/11/22 05/12/22 Paula Reza MD [address] 200 [place] [address] Assigned PCP 03/25/22 04/07/22 Shahida Sutton APRN HOME HEALTH CARE CASE MANAGER [address] [place] [address] Assigned PCP 04/08/22 06/30/22 Daylin Ludwig, MIKI [facility] [address] [place] [address] Cardiac Rehabilitation Therapist 05/16/23 Laurel Velasquez MD [address] [place] [address] Assigned Heart and Vascular Provider 05/13/22 06/30/22 Daylin Ludwig, MIKI [facility] [address] [place] [address] Cardiac Rehabilitation Therapist 06/08/22 06/09/23 Paula Reza MD [address] [address] Assigned PCP 07/01/22 07/07/22 Porsha Michaels APRN HOME HEALTH CARE CASE MANAGER [address] [place] [address] Assigned Heart and Vascular Provider 07/01/22 07/07/22 Laurel Velasquez MD [address] [place], [place] [address] Assigned Heart and Vascular Provider 07/08/22 08/04/22 Shahida Sutton APRN HOME HEALTH CARE CASE MANAGER Assigned PCP 07/08/22 09/08/22 Marilin Montaño, HOME HEALTH CARE CASE MANAGER [address] [place] [address] Assigned Heart and Vascular Provider 08/05/22 Esha Dewitt MD [address] [address] Gastroenterology 09/06/22 Heather Mosquera MD [address] [place] [address] Internal Medicine 09/06/22 Paula Reza MD 303 E [facility] 200 [place] [address] Assigned PCP 09/09/22 01/05/23 Esha Dewitt MD [address] [address] Assigned Gastroenterology Provider 09/23/22 Valdo Escamilla PA-C 6363 [facility] S [address] [place] [address] Assigned Neuroscience Provider 09/30/22 Nohelia Abarca PA-C 2450 [place] [address] Physician Wire Charger Gastroenterology 10/03/22 Heather Mosquera MD [address] [place], [place] [address] Assigned PCP 01/06/23 Fawad York MD 909 [place], [place] [address] Assigned Musculoskeletal Provider 04/27/23 06/25/23 documented as of this encounter
--- OUTSIDE RECORDS SUMMARY | 2023-12-25 08:13 | XMS_ITS | Encounter Summary ---
Author Organization [facility] Address [address] [place] [address] Care Team Providers Care Chief Writer Name Role Phone hSahida Suttontim ZEPEDA CNP Unavailable Un available Roopa Almonte MD Unavailable [phone] Augustine Callaway MD Unavailable Maryse Burton PA-C Unavailable Roopa Almonte MD Unavailable [phone] Griffin Joshi MD Unavailable Rina Magallon RN Unavailable [phone] Paula Reza MD Primary Care Provider [phone] Griffin Joshi MD Unavailable Roopa Almonte MD Unavailable [phone] Basilio Morillo DO Unavailable [phone] Lydia BernsteinC Unavailable Rosa Maria Love Unavailable [phone] Augustine Callaway MD Unavailable Paula Reza MD Unavailable Keerthi Miner APRN SPEECH THERAPIST TECHNICIAN Unavailable [phone] Herman, Shahida Cummings APRN SPEECH THERAPIST TECHNICIAN Unavailable Un available Porsha Michaels APRN SPEECH THERAPIST TECHNICIAN Unavailable +[phone] Paula Reza MD Unavailable Herman, Shahida Cummings APRN SPEECH THERAPIST TECHNICIAN Unavailable Un available Daylin Ludwig Unavailable [phone] Laurel Velasquez MD Unavailable [phone] Daylin Ludwig Unavailable [phone] Paula Reza MD Unavailable Porsha Michaels APRN SPEECH THERAPIST TECHNICIAN Unavailable +[phone] Laurel Velasquez MD Unavailable [phone] Herman, Shahida Cummings APRN SPEECH THERAPIST TECHNICIAN Unavailable Un available Marilin Montaño SPEECH THERAPIST TECHNICIAN Unavailable [phone] Esha Dewitt MD Unavailable [phone] Heather Mosquera MD Unavailable [phone] Paula Reza MD Unavailable Esha Dewitt MD Unavailable [phone] Valdo Escamilla PA-C Unavailable + [phone] Nohelia Abarca PA-C Unavailable Heather Mosquera MD Unavailable [phone] Fawad York MD Unavailable [phone] Reason for Visit * Reason Comments Medication Refill Encounter Details Date Type Department Care Team (Late st Contact Info) Description 08/17/[address] [address] Shahida Sutton APRN CNP [...] documented as of this encounter Care Teams Chief Writer Relationship Specialty Start Date End Date Paula Reza MD [address] [facility] 200 [place] [address] PCP - General Internal Medicine 08/05/21 Shahida Sutton APRN SPEECH THERAPIST TECHNICIAN Assigned PCP 07/12/14 09/30/21 Roopa Almonte MD [address] [facility] 200 [place] [address] Endocrinology, Diabetes, and Metabolism 01/19/21 [place] [address] [facility] 300 [place] [address] Assigned Musculoskeletal Provider 02/06/21 09/16/21 Maryse Burton PA-C 5200 [place] [address] Physician Interactive Media Project Manager Dermatology 04/14/21 Roopa Almonte MD [address] [facility] 200 [place] [address] Hospitalist Endocrinology, Diabetes, and Metabolism 05/30/21 Griffin Joshi MD [address] [facility] [address] [place] [address] Cardiovascular Disease 07/25/21 Rina Magallon, RN Lead Ski Production Supervisor 07/29/21 07/11/22 Griffin Joshi MD [address] [facility] W[address] [place] [address] Assigned Heart and Vascular Provider 08/06/21 10/07/21 Ropoa Almonte MD [address] [facility] 200 [place], [place] [address] Assigned Endocrinology Provider 09/10/21 [place] [address] [facility] [place] [address] Assigned Musculoskeletal Provider 09/17/21 10/14/21 Lydia Bernstein PA-C [address] [place] [address] Assigned PCP 10/01/21 10/21/21 Rosa Maria Love Cristina Community Health Worker 10/06/21 07/11/22 [place] [address] [place] [address] Assigned Musculoskeletal Provider 10/15/21 04/26/23 Paula Reza MD [address] 200 [place] [address] Assigned PCP 10/22/21 12/23/21 Keerthi Miner APRN SPEECH THERAPIST TECHNICIAN [address] [place] [address] Assigned Heart and Vascular Provider 10/08/21 02/10/22 Shahida Sutton, JEEP DRIVER SPEECH THERAPIST TECHNICIAN Assigned PCP 12/24/21 03/24/22 Porsha Michaels APRN SPEECH THERAPIST TECHNICIAN [address] [place] [address] Assigned Heart and Vascular Provider 02/11/22 05/12/22 Paula Reza MD [address] [place] [address] Assigned PCP 03/25/22 04/07/22 Shahida Sutton APRN SPEECH THERAPIST TECHNICIAN [address] [place] [address] Assigned PCP 04/08/22 06/30/22 Daylin Ludwig, MIKI [facility] [address] [place] [address] Cardiac Rehabilitation Therapist 05/16/23 Laurel Velasquez MD [address] [place] [address] Assigned Heart and Vascular Provider 05/13/22 06/30/22 Daylin Ludwig, MI[facility] [address] [place] [address] Cardiac Rehabilitation Therapist 06/08/22 06/09/23 Paula Reza MD [address] [facility] 200 [place] [address] Assigned PCP 07/01/22 07/07/22 Porsha Michaels APRN SPEECH THERAPIST TECHNICIAN [address] [place] [address] Assigned Heart and Vascular Provider 07/01/22 07/07/22 Laurel Velasquez MD [address] [place] [address] Assigned Heart and Vascular Provider 07/08/22 08/04/22 Shahida Sutton APRN SPEECH THERAPIST TECHNICIAN Assigned PCP 07/08/22 09/08/22 Marilin Montaño, SPEECH THERAPIST TECHNICIAN [address] [place] [address] Assigned Heart and Vascular Provider 08/05/22 Esha Dewitt MD 420 [facility] 36 [place], [place] [address] Gastroenterology 09/06/22 Heather Mosquera MD [address] [place] [address] Internal Medicine 09/06/22 Paula Reza MD 303 E [facility] 200 [place], [place] [address]37 Assigned PCP 09/09/22 01/05/23 Esha Dewitt MD 420 [facility] 36 [place], [place] [address] Assigned Gastroenterology Provider 09/23/22 Valdo Escamilla PA-C [address] [place] [address] Assigned Neuroscience Provider 09/30/22 Nohelia Abarca PA-C [address] [place] [address] Physician Interactive Media Project Manager Gastroenterology 10/03/22 Heather Mosquera MD [address] [place] [address] Assigned PCP 01/06/23 Fawad York MD 909 [place] [address] Assigned Musculoskeletal Provider 04/27/23 06/25/23 documented as of this encounter
--- OUTSIDE RECORDS SUMMARY | 2023-12-25 08:13 | XMS_ITS | Encounter Summary ---
Author Organization [facility] Address [address] [place] [address] Care Team Providers Care Student Services Coordinator Name Role Phone Roopa Almonte MD Unavailable [phone] Maryse Burton PA-C Unavailable [phone] Roopa Almonte MD Unavailable [phone] Griffin Joshi MD Unavailable Rina Magallon RN Unavailable [phone] Paula Reza MD Primary Care Provider [phone] Roopa Almonte MD Unavailable [phone] Rosa Maria Love Unavailable [phone] Augustine Callaway MD Unavailable Paula Reza MD Unavailable Keerthi Miner APRN ANESTHESIOLOGIST ASSISTANT CERTIFIED Unavailable [phone] Shahida Sutton APRN ANESTHESIOLOGIST ASSISTANT CERTIFIED Unavailable Un available Porsha Michaels APRN ANESTHESIOLOGIST ASSISTANT CERTIFIED Unavailable [phone] Paula Reza MD Unavailable Shahida Sutton APRN ANESTHESIOLOGIST ASSISTANT CERTIFIED Unavailable Un available Daylin Ludwig Unavailable Laurel Velasquez MD Unavailable ParthDaylin hernandez Marquita [place] Unavailable Paula Reza MD Unavailable Brando, Kim DUANE ANESTHESIOLOGIST ASSISTANT CERTIFIED Unavailable Laurel Velasquez MD Unavailable Shahida Sutton INVESTIGATOR CLAIMS ANESTHESIOLOGIST ASSISTANT CERTIFIED Unavailable Un available Marilin Montaño ANESTHESIOLOGIST ASSISTANT CERTIFIED Unavailable Esha Dewitt MD Unavailable [phone] Heather Mosquera MD Unavailable Paula Reza MD Unavailable Esha Dewitt MD Unavailable [phone] Valdo Escamilla PA-C Unavailable Nohelia Abarca PA-C Unavailable [phone] Heather Mosquera MD Unavailable [phone] Fawad York MD Unavailable Reason for Visit * Reason Onset Date Comments Call to schedule test 12/13/[address] scan Encounter Details Date Type Department Care Team (Late st Contact Info) Description 12/13/2021 Telephone [facility] Heart [place] 680675 [facility] [address] [place] [phone] Candi Parada MD [address] [facility] [place] [address] Call to schedule test (Reschedule ct scan) [...] as of this encounter Care Teams Student Services Coordinator Relationship Specialty Start Date End Date Paula Reza MD [address] [facility] 200 [place] [address] PCP - General Internal Medicine 08/05/21 Roopa Almonte MD [address] [facility] 200 [place] [address] Endocrinology, Diabetes, and Metabolism 01/19/21 Maryse Burton, PAAna MariaC 5200 [place] [address] Physician Golf Course Laborer Dermatology 04/14/21 Roopa Almonte MD [address] [facility] 200 [place] [address] Hospitalist Endocrinology, Diabetes, and Metabolism 05/30/21 Griffin Joshi MD 6405 [facility] [address] [place] [address] Cardiovascular Disease 07/25/21 Rina Magallon, RN Lead Special Needs Caregiver 07/29/21 07/11/22 Roopa Almonte MD [address] [facility] 200 [place], [place] [address] Assigned Endocrinology Provider 09/10/21 Rosa Maria Love CHW Community Health Worker 10/06/21 07/11/22 [place] [address] [facility] 300 [place] [address] Assigned Musculoskeletal Provider 10/15/21 04/26/23 Paula Reza MD [address] [place] [address] Assigned PCP 10/22/21 12/23/21 Keerthi Miner APRN ANESTHESIOLOGIST ASSISTANT CERTIFIED [address] [place] [address] Assigned Heart and Vascular Provider 10/08/21 02/10/22 Shahida Sutton APRN ANESTHESIOLOGIST ASSISTANT CERTIFIED Assigned PCP 12/24/21 03/24/22 Porsha Michaels APRN ANESTHESIOLOGIST ASSISTANT CERTIFIED [address] [place] [place] [address] Assigned Heart and Vascular Provider 02/11/22 05/12/22 Paula Reza MD [address] [place] [address] Assigned PCP 03/25/22 04/07/22 Shahida Sutton APRN ANESTHESIOLOGIST ASSISTANT CERTIFIED [address] [place] [address] Assigned PCP 04/08/22 06/30/22 Daylin Ludwig, EP [facility] [address] [place] [address] Cardiac Rehabilitation Therapist 05/16/23 Laurel Velasquez MD [address] [place] [address] Assigned Heart and Vascular Provider 05/13/22 06/30/22 Daylin Ludwig, EP [facility] [address] [address] Cardiac Rehabilitation Therapist 06/08/22 06/09/23 Paula Reza MD [address] [place], [place] [address] Assigned PCP 07/01/22 07/07/22 Porsha Michaels APRN ANESTHESIOLOGIST ASSISTANT CERTIFIED [address] [place] [address] Assigned Heart and Vascular Provider 07/01/22 07/07/22 Laurel Velasquez MD [address] [place] [address] Assigned Heart and Vascular Provider 07/08/22 08/04/22 Shahida Sutton APRN ANESTHESIOLOGIST ASSISTANT CERTIFIED Assigned PCP 07/08/22 09/08/22 Marilin Montaño, ANESTHESIOLOGIST ASSISTANT CERTIFIED [address] [place] [address] Assigned Heart and Vascular Provider 08/05/22 Esha Dewitt MD [address] [place] [address] 36 [place], [place] [address] Gastroenterology 09/06/22 Heather Mosquera MD [address] [place] [address] Internal Medicine 09/06/22 Paula Reza MD [address] [place] [address] Assigned PCP 09/09/22 01/05/23 Esha Dewitt MD 420 [facility] 36 [place], [place] [address] Assigned Gastroenterology Provider 09/23/22 Valdo Escamilla PA-C [address] [facility] [address] [place] [address] Assigned Neuroscience Provider 09/30/22 Nohelia Abarca PA-C [address] [place] [address] Physician Golf Course Laborer Gastroenterology 10/03/22 Heather Mosquera MD [address] [place] [address] Assigned PCP 01/06/23 Fawad York MD 909 [place], [place] [address] Assigned Musculoskeletal Provider 04/27/23 06/25/23 documented as of this encounter
--- OUTSIDE RECORDS SUMMARY | 2023-12-25 08:13 | XMS_ITS | Encounter Summary ---
Author Organization [facility] Address [address] [place] [address] Care Team Providers Care Quality Control Specialist Name Role Phone Roopa Almonte MD Unavailable [phone] Maryse Burton PA-C Unavailable [phone] Roopa Almonte MD Unavailable [phone] Griffin Joshi MD Unavailable Rina Magallon RN Unavailable [phone] Paula Reza MD Primary Care Provider [phone] Roopa Almonte MD Unavailable [phone] Rosa Maria Love Unavailable [phone] Augustine Callaway MD Unavailable Shahida Sutton APRN PRODUCT DEMONSTRATOR Unavailable Un available Porsha Michaels APRN PRODUCT DEMONSTRATOR Unavailable [phone] Paula Reza MD Unavailable Shahida Sutton APRN PRODUCT DEMONSTRATOR Unavailable Un available Daylin Ludwig Unavailable [phone] Laurel Velasquez MD Unavailable [phone] Daylin Ludwig Unavailable [phone] Paula Reza MD Unavailable Porsha Michaels APRN PRODUCT DEMONSTRATOR Unavailable [phone] Laurel Velasquez MD Unavailable [phone] Shahida Sutton ENGINEERING ASSISTANT PRODUCT DEMONSTRATOR Unavailable Un available Marilin Montaño PRODUCT DEMONSTRATOR Unavailable [phone] Esha Dewitt MD Unavailable [phone] Heather Mosquera MD Unavailable [phone] Paula Reza MD Unavailable Esha Dewitt MD Unavailable [phone] Valdo Escamilla PA-C Unavailable [phone] Nohelia Abarca PA-C Unavailable [phone] Heather Mosquera MD Unavailable [phone] Fawad York MD Unavailable [phone] Reason for Visit * Reason Onset Date Comments Refill Request 03/01/2022 zolpidem ER (AMB IEN CR) 12.5 MG CR tablet Encounter Details Date Type Department Care Team (Late st Contact Info) Description 03/01/[address] [place] [address] Paula Reza MD [address] [facility] 200 [place] [address] Refill Request (zolpidem ER (AMBIEN [...] Coronavirus/COVID-19? No / Unsure 02/21/2022 12:25 PM SOLAR INSTALLER PV documented as of this encounter Miscellaneous Notes * Telephone Encounter - Shayla Callahan RN - 03/02/2022 1:14 PM CST Routing refill request to provider for review/approval because: Drug not on the [facility] refill protocol Shayla Callahan RN, BSN R INSTALLER PV documented in this encounter Plan of Treatment [...] Optimize Self-Care Behaviors 90%(03/23/19 23 3:12 PM SOLAR INSTALLER PV) Angelita Diaz RD Note: I will check [...] as of this encounter Care Teams Quality Control Specialist Relationship Specialty Start Date End Date Paula Reza MD [address] 200 [place] [address] PCP - General Internal Medicine 08/05/21 Roopa Almonte MD [address] [facility] 200 [place] [address] Endocrinology, Diabetes, and Metabolism 01/19/21 Maryse Burton PA-C [address] [place] [address] Physician Internship Dermatology 04/14/21 Roopa Almonte MD [address] [facility] 200 [place], [place] [address] Hospitalist Endocrinology, Diabetes, and Metabolism 05/30/21 Griffin Joshi MD [address] [facility] [address] [place] [address] Cardiovascular Disease 07/25/21 Rina Magallon, RN Lead Gore Seamer 07/29/21 07/11/22 Roopa Almonte MD [address] [place] [address] 200 [place], [place] [address] Assigned Endocrinology Provider 09/10/21 Rosa Maria Love CHW Community Health Worker 10/06/21 07/11/22 [place] [address] [facility] 300 [place], [place] [address] Assigned Musculoskeletal Provider 10/15/21 04/26/23 Shahida Sutton APRN PRODUCT DEMONSTRATOR Assigned PCP 12/24/21 03/24/22 Porsha Michaels APRN PRODUCT DEMONSTRATOR [address] [address] Assigned Heart and Vascular Provider 02/11/22 05/12/22 Paula Reza MD [address] [place] [address] Assigned PCP 03/25/22 04/07/22 Shahida Sutton APRN PRODUCT DEMONSTRATOR [address] [place] [address] Assigned PCP 04/08/22 06/30/22 Daylin Ludwig, MIKI [facility] [address] [place] [address] Cardiac Rehabilitation Therapist 05/16/23 Laurel Velasquez MD [address] [place] [address] Assigned Heart and Vascular Provider 05/13/22 06/30/22 Daylin Ludwig, MIKI [facility] [address] [place] [address] Cardiac Rehabilitation Therapist 06/08/22 06/09/23 Paula Reza MD [address] [place] [address] Assigned PCP 07/01/22 07/07/22 Porsha Michaels APRN PRODUCT DEMONSTRATOR [address] [place] [address] Assigned Heart and Vascular Provider 07/01/22 07/07/22 Laurel Velasquez MD [address] [place] [address] Assigned Heart and Vascular Provider 07/08/22 08/04/22 Shahida Sutton APRN PRODUCT DEMONSTRATOR Assigned PCP 07/08/22 09/08/22 Marilin Montaño, PAULA [address] [place] [address] Assigned Heart and Vascular Provider 08/05/22 Esha Dewitt MD 420 [facility] 36 [place] [address] MD Gastroenterology 09/06/22 Heather Mosquera MD [address] [place] [address] Internal Medicine 09/06/22 Paula Reza MD 303 E [facility] 200 [place] [address] Assigned PCP 09/09/22 01/05/23 Esha Dewitt MD 420 [facility] 36 [place] [address] Assigned Gastroenterology Provider 09/23/22 Valdo Escamilla PA-C [address] [facility] [address] [address] [place] [address] Assigned Neuroscience Provider 09/30/22 Nohelia Abarca PA-C [address] [place], [place] [address] Physician Internship Gastroenterology 10/03/22 Heather Mosquera MD [address] [place] [address] Assigned PCP 01/06/23 Fawad York MD [address] [place] [address] Assigned Musculoskeletal Provider 04/27/23 06/25/23 documented as of this encounter
--- OUTSIDE RECORDS SUMMARY | 2023-12-25 08:14 | XMS_ITS | Encounter Summary ---
Author Organization [place] Address [address] [place] [address] Care Team Providers Care Director Of Aviation Name Role Phone HermanShahida APRN STITCH WHEELER Primary Care Provi ford Unavailable Shahida Sutton APRN STITCH WHEELER Unavailable Un available Carolynn Ramon RN Unavailable [phone] Anabela Barakat APRN STITCH WHEELER Unavailable Roopa Almonte MD Unavailable [phone] Augustine Callaway MD Unavailable Maryse Burton PA-C Unavailable [phone] Roopa Almonte MD Unavailable [phone] Griffin Joshi MD Unavailable Rina Magallon RN Unavailable [phone] Paula Reza MD Primary Care Provider [phone] Griffin Joshi MD Unavailable Roopa Almonte MD Unavailable [phone] Basilio Morillo DO Unavailable [phone] Lydia Bernstein PA-C Unavailable Kate Rosa Maria CHW Unavailable Augustine Callaway MD Unavailable Paula Reza MD Unavailable Keerthi Miner APRN STITCH WHEELER Unavailable Herman, Shahida Cummings APRN STITCH WHEELER Unavailable Un available Porsha Michaels APRN STITCH WHEELER Unavailable [phone] Paula Reza MD Unavailable Herman, Shahida Cummings APRN STITCH WHEELER Unavailable Un available Daylin Ludwig EP Unavailable [phone] Laurel Velasquez MD Unavailable [phone] Fietedavid, Daylin Juárez EP Unavailable [phone] Paula Reza MD Unavailable Porsha Michaels APRN STITCH WHEELER Unavailable [phone] Laurel Velasquez MD Unavailable [phone] Herman, Shahida Cummings APRN STITCH WHEELER Unavailable Un available Marilin Montaño STITCH WHEELER Unavailable [phone] Esha Dewitt MD Unavailable [phone] Heather Mosquera MD Unavailable [phone] Paula Reza MD Unavailable Esha Dewitt MD Unavailable [phone] Valdo Escamilla PA-C Unavailable + [phone] Nohelia Abarca PA-C Unavailable [phone] Heather Mosquera MD Unavailable [phone] Fawad York MD Unavailable [phone] Reason for Visit * Reason Onset Date Comments Appointment 07/09/2021 Encounter Details Date Type Department Care Team (Late st Contact Info) Description 07/09/[address] [address] Shahida Sutton, TWISTER OPERATOR STITCH WHEELER Appointment Social History Tobacco Use Types Packs/Day [...] CMA - 07/12/2021 6:59 AM CDT Sent Bioph[employer] message to pt will appointment time. Will [...] of this encounter Care Teams Director Of Aviation Relationship Specialty Start Date End Date Shahida Sutton APRN STITCH WHEELER PCP - General Nurse Practitioner 08/17/14 08/04/21 Paula Reza MD [address] [place], [place] [address] PCP - General Internal Medicine 08/05/21 Shahida Sutton APRN STITCH WHEELER Assigned PCP 07/12/14 09/30/21 Carolynn Ramon RN Personal Advocate & Liaison (PAL) 12/17/18 08/07/21 Anabela Barakat APRN STITCH WHEELER [address] [place] [address] Assigned Heart and Vascular Provider 08/15/20 08/05/21 Roopa Almonte MD [address] [facility] 200 [place] [address] Endocrinology, Diabetes, and Metabolism 01/19/21 [place] [address] [place] [address] Assigned Musculoskeletal Provider 02/06/21 09/16/21 Maryse Burton, PAAna MariaC [address] [place] [address] Physician Supervisor Small Appliance Assembly Dermatology 04/14/21 Roopa Almonte MD [address] [facility] 200 [place] [address] Hospitalist Endocrinology, Diabetes, and Metabolism 05/30/21 Griffin Joshi MD [address] [place] [address] Cardiovascular Disease 07/25/21 Rina Magallon, RN Lead Instructor Ballroom Dancing 07/29/21 07/11/22 Griffin Joshi MD [address] [place] [address] Assigned Heart and Vascular Provider 08/06/21 10/07/21 Roopa Almonte MD [address] [facility] 200 [place], [place] [address] Assigned Endocrinology Provider 09/10/21 [place] [address] [facility] [place] [address] Assigned Musculoskeletal Provider 09/17/21 10/14/21 Lydia Bernstein PA-C [address] [place], [place] [address] Assigned PCP 10/01/21 10/21/21 Rosa Maria Love CHW Community Health Worker 10/06/21 07/11/22 [place] [address] [place] [facility] [address] [place] [address] Assigned Musculoskeletal Provider 10/15/21 04/26/23 Paula Reza MD [address] [place] [address] Assigned PCP 10/22/21 12/23/21 Keerthi Miner APRN STITCH WHEELER [address] [place] [address] Assigned Heart and Vascular Provider 10/08/21 02/10/22 Shahida Sutton APRN STITCH WHEELER Assigned PCP 12/24/21 03/24/22 Porsha Michaels APRN STITCH WHEELER [address] [place] [address] Assigned Heart and Vascular Provider 02/11/22 05/12/22 Paula Reza MD [address] 200 [place] [address] Assigned PCP 03/25/22 04/07/22 Shahida Sutton APRN STITCH WHEELER [address] [place] [address] Assigned PCP 04/08/22 06/30/22 Daylin Ludwig EP [facility] [address] [place] [address] Cardiac Rehabilitation Therapist 05/16/23 Laurel Velasquez MD [address] [place] [address] Assigned Heart and Vascular Provider 05/13/22 06/30/22 Daylin Ludwig EP [facility] [address] [place] [address] Cardiac Rehabilitation Therapist 06/08/22 06/09/23 Paula Reza MD [address] [facility] 200 [place], [place] [address] Assigned PCP 07/01/22 07/07/22 Porsha Michaels APRN STITCH WHEELER [address] [place] [address] Assigned Heart and Vascular Provider 07/01/22 07/07/22 Laurel Velasquez MD [address] [place] [address] Assigned Heart and Vascular Provider 07/08/22 08/04/22 Shahida Sutton APRN STITCH WHEELER Assigned PCP 07/08/22 09/08/22 Marilin Montaño, STITCH WHEELER [address] [place] [address] Assigned Heart and Vascular Provider 08/05/22 Esha Dewitt MD [address] [place] [address] 36 [place], [place] [address] Gastroenterology 09/06/22 Heather Mosquera MD [address] [place] [address] Internal Medicine 09/06/22 Paula Reza MD [address] 200 [place] [address] Assigned PCP 09/09/22 01/05/23 Esha Dewitt MD [address] [facility] 36 [place] [address] Assigned Gastroenterology Provider 09/23/22 Valdo Escamilla PA-C [address] [facility] [address] [address] [place], [place] [address] Assigned Neuroscience Provider 09/30/22 Nohelia Abarca PA-C [address] [facility] [place] [address] Physician Supervisor Small Appliance Assembly Gastroenterology 10/03/22 Heather Mosquera MD [address] [facility] [facility] 150 [place] [address] Assigned PCP 01/06/23 Fawad York MD 9[address] [place] [address] Assigned Musculoskeletal Provider 04/27/23 06/25/23 documented as of this encounter
--- OUTSIDE RECORDS SUMMARY | 2023-12-25 08:14 | XMS_ITS | Encounter Summary ---
Author Organization [place] Address [address] [place] [address] Care Team Providers Care Neurosurgery Physician Name Role Phone HermanShahida APRN STATION AIR TRAFFIC CONTROL SPECIALIST Primary Care Provi ford Unavailable Shahida Sutton APRN STATION AIR TRAFFIC CONTROL SPECIALIST Unavailable Un available Carolynn Ramon RN Unavailable [phone] Anabela Barakat APRN STATION AIR TRAFFIC CONTROL SPECIALIST Unavailable Fawad York MD Unavailable [phone] Roopa Almonte MD Unavailable [phone] Augustine Callaway MD Unavailable Maryse Burton PA-C Unavailable [phone] Marquita Starkey MD Unavailable [phone] Roopa Almonte MD Unavailable [phone] Griffin Joshi MD Unavailable Rina Magallon RN Unavailable [phone] Paula Reza MD Primary Care Provider [phone] Griffin Joshi MD Unavailable Roopa Almonte MD Unavailable [phone] Basilio Morillo DO Unavailable Lydia Bernstein PA-C Unavailable Rosa Maria Love Unavailable Augustine Callaway MD Unavailable Paula Reza MD Unavailable Keerthi Miner APRN STATION AIR TRAFFIC CONTROL SPECIALIST Unavailable [phone] Herman, Shahida Cummings CURLING MACHINE OPERATOR STATION AIR TRAFFIC CONTROL SPECIALIST Unavailable Un available Porsha Michaels APRN STATION AIR TRAFFIC CONTROL SPECIALIST Unavailable Paula Reza MD Unavailable Herman, Shahida Cummings APRN STATION AIR TRAFFIC CONTROL SPECIALIST Unavailable Un available Daylin Ludwig Unavailable Laurel Velasquez MD Unavailable Daylin Ludwig Unavailable Paula Reza MD Unavailable Porsha Michaels APRN STATION AIR TRAFFIC CONTROL SPECIALIST Unavailable Laurel Velasquez MD Unavailable Herman, Shaihda Cummings APRN STATION AIR TRAFFIC CONTROL SPECIALIST Unavailable Un available Marilin Montaño STATION AIR TRAFFIC CONTROL SPECIALIST Unavailable Esha Dewitt MD Unavailable [phone] Heather Mosquera MD Unavailable Paula Reza MD Unavailable Esha Dewitt MD Unavailable [phone] Valdo Escamilla PA-C Unavailable Nohelia Abarca PA-C Unavailable [phone] Heather Mosquera MD Unavailable Fawad York MD Unavailable Encounter Details Date Type Department Care Team (Late st Contact Info) Description 01/04/2021 MyC Medical Advice [address] [phone] Asuncion Olson Social History Tobacco Use Types [...] documented as of this encounter Care Teams Neurosurgery Physician Relationship Specialty Start Date End Date Shahida Sutton APRN STATION AIR TRAFFIC CONTROL SPECIALIST PCP - General Nurse Practitioner 08/17/14 08/04/21 Paula Reza MD [address] [facility] 200 [place] [address] PCP - General Internal Medicine 08/05/21 Shahida Sutton APRN STATION AIR TRAFFIC CONTROL SPECIALIST Assigned PCP 07/12/14 09/30/21 Carolynn Ramon, KASIE Personal Advocate & Liaison (PAL) 12/17/18 08/07/21 Anabela Barakat APRN STATION AIR TRAFFIC CONTROL SPECIALIST 1700 [place] [address] Assigned Heart and Vascular Provider 08/15/20 08/05/21 Fawad York MD [address] [place], [place] [address] Assigned Musculoskeletal Provider 12/05/20 02/05/21 Roopa Almonte MD [address] [facility] 200 [place], [place] [address] Endocrinology, Diabetes, and Metabolism 01/19/21 [place] [address] [facility] 300 [place] [address] Assigned Musculoskeletal Provider 02/06/21 09/16/21 Maryse Burton, PAAna MariaC [address] [place] [address] Physician Deep Fat Fry Cook Dermatology 04/14/21 Marquita Starkey MD [address] [place], [place] [address] Internal Medicine 05/06/21 05/06/21 Roopa Almonte MD [address] [place] [address] Hospitalist Endocrinology, Diabetes, and Metabolism 05/30/21 Griffin Joshi MD [address] [facility] [address] [place] [address] Cardiovascular Disease 07/25/21 Rina Magallon, RN Lead Electronic Equipment Repairer 07/29/21 07/11/22 Griffin Joshi MD [address] [place] [address] Assigned Heart and Vascular Provider 08/06/21 10/07/21 Roopa Almonte MD [address] [place] [address] 200 [place] [address] Assigned Endocrinology Provider 09/10/21 [place] [address] [facility] [place] [address] Assigned Musculoskeletal Provider 09/17/21 10/14/21 Lydia Bernstein PA-C [address] [place] [address] Assigned PCP 10/01/21 10/21/21 Rosa Maria Love CHW Community Health Worker 10/06/21 07/11/22 [place] [address] [facility] 300 [place] [address] Assigned Musculoskeletal Provider 10/15/21 04/26/23 Paula Reza MD [address] [facility] 200 [place], [place] [address] Assigned PCP 10/22/21 12/23/21 Keerthi Miner CURLING MACHINE OPERATOR STATION AIR TRAFFIC CONTROL SPECIALIST [address] [place] [address] Assigned Heart and Vascular Provider 10/08/21 02/10/22 Shahida Sutton APRN STATION AIR TRAFFIC CONTROL SPECIALIST Assigned PCP 12/24/21 03/24/22 Porsha Mcihaels APRN STATION AIR TRAFFIC CONTROL SPECIALIST [address] [place] [address] Assigned Heart and Vascular Provider 02/11/22 05/12/22 Paula Reza MD [address] [facility] 200 [place] [address] Assigned PCP 03/25/22 04/07/22 Shahida Sutton CURLING MACHINE OPERATOR STATION AIR TRAFFIC CONTROL SPECIALIST [address] [place] [address] Assigned PCP 04/08/22 06/30/22 Daylin Ludwig, MIKI [facility] [address] [place] [address] Cardiac Rehabilitation Therapist 05/16/23 Laurel Velasquez MD [address] [place] [address] Assigned Heart and Vascular Provider 05/13/22 06/30/22 Daylin Ludwig, MIKI [facility] [address] [place] [address] Cardiac Rehabilitation Therapist 06/08/22 06/09/23 Paula Reza MD [address] [place] [address] Assigned PCP 07/01/22 07/07/22 Porsha Michaels APRN STATION AIR TRAFFIC CONTROL SPECIALIST [address] [place] [address] Assigned Heart and Vascular Provider 07/01/22 07/07/22 Laurel Velasquez MD [address] [place] [address] Assigned Heart and Vascular Provider 07/08/22 08/04/22 Shahida Sutton APRN STATION AIR TRAFFIC CONTROL SPECIALIST Assigned PCP 07/08/22 09/08/22 Marilin Montaño STATION AIR TRAFFIC CONTROL SPECIALIST [address] [place] [address] Assigned Heart and Vascular Provider 08/05/22 Esha Dewitt MD [address] [place] [address] Gastroenterology 09/06/22 Heather Mosquera MD [address] [place] [address] Internal Medicine 09/06/22 Paula Reza MD [address] [place] [address] Assigned PCP 09/09/22 01/05/23 Esha Dewitt MD [address] [place] [address] Assigned Gastroenterology Provider 09/23/22 Valdo Escamilla PA-C 6[address] [facility] 103 [place] [address] Assigned Neuroscience Provider 09/30/22 Nohelia Abarca PA-C [address]50 [place] [address] Physician Deep Fat Fry Cook Gastroenterology 10/03/22 Heather Mosquera MD 6545 [facility] 150 [place] [address] Assigned PCP 01/06/23 Fawad York MD [address] [place] [address] Assigned Musculoskeletal Provider 04/27/23 06/25/23 documented as of this encounter
--- OUTSIDE RECORDS SUMMARY | 2023-12-25 08:14 | XMS_ITS | Encounter Summary ---
Author Organization [place] Address [address] [place] [address] Care Team Providers Care Dye Machine Tender Name Role Phone HermanShahida APRN DIRECTOR MEDICAL ECONOMICS Primary Care Provi ford Unavailable Shahida Sutton APRN DIRECTOR MEDICAL ECONOMICS Unavailable Un available Carolynn Ramon RN Unavailable [phone] Anabela Barakat APRN DIRECTOR MEDICAL ECONOMICS Unavailable Fawad York MD Unavailable [phone] Roopa Almonte MD Unavailable [phone] Augustine Callaway MD Unavailable Maryse Burton PA-C Unavailable [phone] Marquita Starkey MD Unavailable [phone] Roopa Almonte MD Unavailable [phone] Griffin Joshi MD Unavailable Rina Magallon RN Unavailable [phone] Paula Reza MD Primary Care Provider [phone] Griffin Joshi MD Unavailable Roopa Almonte MD Unavailable [phone] Basilio Morillo DO Unavailable [phone] Lydia Bernstein PA-C Unavailable Rosa Maria Love Unavailable Augustine Callaway MD Unavailable Paula Reza MD Unavailable Keerthi Miner APRN DIRECTOR MEDICAL ECONOMICS Unavailable [phone] Herman, Shahida Cummings APRN DIRECTOR MEDICAL ECONOMICS Unavailable Un available Porsha Michaels APRN DIRECTOR MEDICAL ECONOMICS Unavailable Paula Reza MD Unavailable Herman, Shahida Cummings APRN DIRECTOR MEDICAL ECONOMICS Unavailable Un available Daylin Ludwig Unavailable Laurel Velasquez MD Unavailable Daylin Ludwig Unavailable Paula Reza MD Unavailable Porsha Michaels APRN DIRECTOR MEDICAL ECONOMICS Unavailable Laurel Velasquez MD Unavailable Herman, Shahida Cummings APRN DIRECTOR MEDICAL ECONOMICS Unavailable Un available Marilin Montaño DIRECTOR MEDICAL ECONOMICS Unavailable Esha Dewitt MD Unavailable [phone] Heather Mosquera MD Unavailable Paula Reza MD Unavailable Esha Dewitt MD Unavailable [phone] Valdo Escamilla PA-C Unavailable Nohelia Abarca-C Unavailable [phone] Heather Mosquera MD Unavailable Fawad York MD Unavailable Reason for Visit * Reason Onset Date Comments Patient Request for Note/Letter 01/10/2021 KASIE MONTGOMERY Encounter Details Date Type Department Care Team (Late st Contact Info) Description 01/10/2021 MyC Medical Advice [address] [address] Shahida Sutton APRN DIRECTOR MEDICAL ECONOMICS Patient Request for Note/Letter (KASIE MONTGOMERY ) [...] COVID-19? No / Unsure 01/11/2021 9:34 AM PAINTER PLATE documented as of this encounter Miscellaneous Notes * Telephone Encounter - Carolynn Ramon RN - 01/10/2021 1:50 PM PAINTER PLATE RN received call from patient - unable to see letter in my chart from pcp on 01/10/2021 RN will attempt to resend letter and see if patient is able to see letter, advised that he will need to cone picker or we can fax Patient states this is a problem on your end RN advised she is able to see letter and should be viewable Nathalia Watson Nurse, PAL (Patient Advocate Liason) [facility] [phone] TER PLATE * Telephone Encounter - Carolynn Ramon RN - 01/10/2021 12:33 PM PAINTER PLATE See my chart Nathalia Watson Nurse, ULISES (Patient Advocate Liason) [facility] [phone] TER PLATE documented in this encounter Plan of Treatment [...] documented as of this encounter Care Teams Dye Machine Tender Relationship Specialty Start Date End Date Shahida Sutton APRN DIRECTOR MEDICAL ECONOMICS PCP - General Nurse Practitioner 08/17/14 08/04/21 Paula Reza MD [address] [place] [id number] PCP - General Internal Medicine 08/05/21 Shahida Sutton APRN DIRECTOR MEDICAL ECONOMICS Assigned PCP 07/12/14 09/30/21 Carolynn Ramon RN Personal Advocate & Liaison (PAL) 12/17/18 08/07/21 Anabela Barakat APRN DIRECTOR MEDICAL ECONOMICS [address] [place] [address] Assigned Heart and Vascular Provider 08/15/20 08/05/21 Fawad York MD [address] [place] [address]42[address] Assigned Musculoskeletal Provider 12/05/20 02/05/21 Roopa Almonte MD [address] [address] Endocrinology, Diabetes, and Metabolism 01/19/21 [place] [address] [facility] 300 [place] [address] Assigned Musculoskeletal Provider 02/06/21 09/16/21 Maryse Burton PA-C [address] [place] [address] Physician Animal Husbandry Manager Dermatology 04/14/21 Marquita Starkey MD [address] 200 [place] [address] Internal Medicine 05/06/21 05/06/21 Roopa Almonte MD [address] [facility] 200 [place] [address] Hospitalist Endocrinology, Diabetes, and Metabolism 05/30/21 Griffin Joshi MD [address] [facility] [address] [place] [address] Cardiovascular Disease 07/25/21 Rina Magallon, RN Lead Athletic Coach 07/29/21 07/11/22 Griffin Joshi MD [address] [facility] [address] [place] [address] Assigned Heart and Vascular Provider 08/06/21 10/07/21 Roopa Almonte MD [address] [facility] 200 [place] [address] Assigned Endocrinology Provider 09/10/21 [place] [address] [facility] [place] [address] Assigned Musculoskeletal Provider 09/17/21 10/14/21 Lydia Bernstein PA-C [address] [place] [address] Assigned PCP 10/01/21 10/21/21 Rosa Maria Love W Community Health Worker 10/06/21 07/11/22 [place] [address] [place] [address] Assigned Musculoskeletal Provider 10/15/21 04/26/23 Paula Reza MD [address] [place] [address] Assigned PCP 10/22/21 12/23/21 Keerthi Miner APRN DIRECTOR MEDICAL ECONOMICS [address] [place] [address] Assigned Heart and Vascular Provider 10/08/21 02/10/22 Shahida Sutton, AUTOMATION TEST ENGINEER DIRECTOR MEDICAL ECONOMICS Assigned PCP 12/24/21 03/24/22 Porsha Michaels APRN DIRECTOR MEDICAL ECONOMICS [address] [place] [address] Assigned Heart and Vascular Provider 02/11/22 05/12/22 Paula Reza MD [address] [place] [address] Assigned PCP 03/25/22 04/07/22 Shahida Sutton APRN DIRECTOR MEDICAL ECONOMICS [address] [place] [address] Assigned PCP 04/08/22 06/30/22 Daylin Ludwig, MIKI [facility] [address] [place] [address] Cardiac Rehabilitation Therapist 05/16/23 Laurel Velasquez MD [address] [place] [address] Assigned Heart and Vascular Provider 05/13/22 06/30/22 Daylin Ludwig, EP [facility] [address] [place] [address] Cardiac Rehabilitation Therapist 06/08/22 06/09/23 Paula Reza MD [address] [address] Assigned PCP 07/01/22 07/07/22 Porsha Michaels APRN DIRECTOR MEDICAL ECONOMICS [address] [place] [address] Assigned Heart and Vascular Provider 07/01/22 07/07/22 Laurel Velasquez MD [address] [place] [address] Assigned Heart and Vascular Provider 07/08/22 08/04/22 Shahida Sutton APRN DIRECTOR MEDICAL ECONOMICS Assigned PCP 07/08/22 09/08/22 Marilin Montaño DIRECTOR MEDICAL ECONOMICS [address] [place] [address] Assigned Heart and Vascular Provider 08/05/22 Esha Dewitt MD 420 [facility] 36 [place] [address] Gastroenterology 09/06/22 Heather Mosquera MD [address] [place] [address] Internal Medicine 09/06/22 Paula Reza MD [address] [facility] 200 [place], [place] [address] Assigned PCP 09/09/22 01/05/23 Esha Dewitt MD 420 [facility] 36 [place], [place] [address] Assigned Gastroenterology Provider 09/23/22 Valdo Escamilla PA-C [address] [facility] [address] [place] [address] Assigned Neuroscience Provider 09/30/22 Nohelia Abarca PA-C [address] [facility] [place] [address] Physician Animal Husbandry Manager Gastroenterology 10/03/22 Heather Mosquera MD [address] [place] [address] Assigned PCP 01/06/23 Fawad York MD 909 [place] [address] Assigned Musculoskeletal Provider 04/27/23 06/25/23 documented as of this encounter
--- OUTSIDE RECORDS SUMMARY | 2023-12-25 08:14 | XMS_ITS | Encounter Summary ---
Author Organization [facility] Address [address] [place] [address] Care Team Providers Care Document Preparer Microfilming Name Role Phone HermanShahida APRN FLORAL ASSOCIATE Primary Care Provi ford Unavailable Shahida Sutton APRN FLORAL ASSOCIATE Unavailable Un available Carolynn Ramon RN Unavailable [phone] Anabela Barakat APRN FLORAL ASSOCIATE Unavailable Fawad York MD Unavailable [phone] Roopa Almonte MD Unavailable [phone] Augustine Callaway MD Unavailable Maryse Burton PA-C Unavailable [phone] Marquita Starkey MD Unavailable [phone] Roopa Almonte MD Unavailable [phone] Griffin Joshi MD Unavailable Rina Magallon RN Unavailable [phone] Paula Reza MD Primary Care Provider [phone] Griffin Joshi MD Unavailable Roopa Almonte MD Unavailable [phone] Basilio Morillo DO Unavailable Lydia Bernstein PA-C Unavailable Rosa Maria Love Unavailable Augustine Callaway MD Unavailable Paula Reza MD Unavailable Keerthi Miner APRN FLORAL ASSOCIATE Unavailable [phone] Herman, Shahida Cummings CAD DESIGN ENGINEER FLORAL ASSOCIATE Unavailable Un available Porsha Michaels APRN FLORAL ASSOCIATE Unavailable Paula Reza MD Unavailable Herman, Shahida Cummings APRN FLORAL ASSOCIATE Unavailable Un available Daylin Ludwig Unavailable Laurel Velasquez MD Unavailable Daylin Ludwig Unavailable Paula Reza MD Unavailable Porsha Michaels APRN FLORAL ASSOCIATE Unavailable Laurel Velasquez MD Unavailable Herman, Shahida Cummings APRN FLORAL ASSOCIATE Unavailable Un available Marilin Montaño FLORAL ASSOCIATE Unavailable Esha Dewitt MD Unavailable [phone] Heather Mosquera MD Unavailable Paula Reza MD Unavailable Esha Dewitt MD Unavailable [phone] Valdo Escamilla PA-C Unavailable Nohelia Abarca PA-C Unavailable [phone] Heather Mosquera MD Unavailable Fawad York MD Unavailable Encounter Details Date Type Department Care Team (Late st Contact Info) Description 12/28/2020 MyC Medical Advice [address] [phone] Carolynn Ramon RN Social History Tobacco Use [...] documented as of this encounter Care Teams Document Preparer Microfilming Relationship Specialty Start Date End Date Shahida Sutton APRN FLORAL ASSOCIATE PCP - General Nurse Practitioner 08/17/14 08/04/21 Paula Reza MD [address] [facility] 200 [place] [address] PCP - General Internal Medicine 08/05/21 Shahida Sutton, CAD DESIGN ENGINEER FLORAL ASSOCIATE Assigned PCP 07/12/14 09/30/21 Carolynn Ramon RN Personal Advocate & Liaison (PAL) 12/17/18 08/07/21 Anabela Barakat APRN FLORAL ASSOCIATE [address] [place] [address] Assigned Heart and Vascular Provider 08/15/20 08/05/21 Fawad York MD [address] [place] [address] Assigned Musculoskeletal Provider 12/05/20 02/05/21 Roopa Almonte MD [address] [address] Endocrinology, Diabetes, and Metabolism 01/19/21 [place] [address] [address] Assigned Musculoskeletal Provider 02/06/21 09/16/21 Maryse Burton, PA-C [address] [place] [address] Physician Journalism Intern Dermatology 04/14/21 Marquita Starkey MD [address] [facility] 200 [place] [address] Internal Medicine 05/06/21 05/06/21 Roopa Almonte MD [address] [facility] [address] [place] [address] Hospitalist Endocrinology, Diabetes, and Metabolism 05/30/21 Griffin Joshi MD [address] [facility] [address] [place] [address] Cardiovascular Disease 07/25/21 Rina Magallon, RN Lead Musical Instrument Maker 07/29/21 07/11/22 Griffin Joshi MD [address] [place] [address] Assigned Heart and Vascular Provider 08/06/21 10/07/21 Roopa Almonte MD [address] [facility] 200 [place], [place] [address] Assigned Endocrinology Provider 09/10/21 [place] [address] [facility] [place] [address] Assigned Musculoskeletal Provider 09/17/21 10/14/21 Lydia Bernstein PA-C [address] [facility] 150 [place] [address] Assigned PCP 10/01/21 10/21/21 Rosa Maria Love CHW Community Health Worker 10/06/21 07/11/22 [place] [address] [facility] [address] [place] [address] Assigned Musculoskeletal Provider 10/15/21 04/26/23 Paula Reza MD [address] [place] [address] Assigned PCP 10/22/21 12/23/21 Keerthi Miner CAD DESIGN ENGINEER FLORAL ASSOCIATE [address] [place] [address] Assigned Heart and Vascular Provider 10/08/21 02/10/22 Shahida Sutton CAD DESIGN ENGINEER FLORAL ASSOCIATE Assigned PCP 12/24/21 03/24/22 Porsha Michaels CAD DESIGN ENGINEER FLORAL ASSOCIATE [address] [place] [place] [address] Assigned Heart and Vascular Provider 02/11/22 05/12/22 Paula Reza MD [address] [place] [address] Assigned PCP 03/25/22 04/07/22 Shahida Sutton APRN FLORAL ASSOCIATE [address] [place] [address] Assigned PCP 04/08/22 06/30/22 Daylin Ludwig, EP [facility] [address] [address] Cardiac Rehabilitation Therapist 05/16/23 Laurel Velasquez MD [address] [address] Assigned Heart and Vascular Provider 05/13/22 06/30/22 Daylin Ludwig, EP [facility] [address] [address] Cardiac Rehabilitation Therapist 06/08/22 06/09/23 Paula Reza MD [address] [place] [address] Assigned PCP 07/01/22 07/07/22 Porsha Michaels APRN FLORAL ASSOCIATE [address] [place] [address] Assigned Heart and Vascular Provider 07/01/22 07/07/22 Laurel Velasquez MD [address] [place] [address] Assigned Heart and Vascular Provider 07/08/22 08/04/22 Shahida Sutton APRN FLORAL ASSOCIATE Assigned PCP 07/08/22 09/08/22 Marilin Montaño, FLORAL ASSOCIATE [address] [place] [address] Assigned Heart and Vascular Provider 08/05/22 Esha Dewitt MD [address] [place] [address] 36 [place], [place] [address] Gastroenterology 09/06/22 Heather Mosquera MD [address] [place] [address] Internal Medicine 09/06/22 Paula Reza MD [address] [place] [address] Assigned PCP 09/09/22 01/05/23 Esha Dewitt MD 420 [facility] 36 [place], [place] [address] Assigned Gastroenterology Provider 09/23/22 Valdo Escamilla PA-C [address] [facility] [address] [place], [place] [address] Assigned Neuroscience Provider 09/30/22 Nohelia Abarca PA-C [address] [place], [place] [address] Physician Journalism Intern Gastroenterology 10/03/22 Heather Mosquera MD [address] [facility] 150 [place], [place] [address] Assigned PCP 01/06/23 Fawad York MD [address] [place], [place] [address] Assigned Musculoskeletal Provider 04/27/23 06/25/23 documented as of this encounter
--- OUTSIDE RECORDS SUMMARY | 2023-12-25 08:14 | XMS_ITS | Encounter Summary ---
Author Organization [facility] Address [address] [place] [address] Care Team Providers Care Milieu Coordinator Name Role Phone HermanShahida APRN TESTING TECH Primary Care Provi ford Unavailable Shahida Sutton APRN TESTING TECH Unavailable Un available Carolynn Ramon RN Unavailable [phone] Anabela Barakat APRN TESTING TECH Unavailable Roopa Almonte MD Unavailable [phone] Augustine Callaway MD Unavailable Maryse Burton PA-C Unavailable [phone] Roopa Almonte MD Unavailable [phone] Griffin Joshi MD Unavailable Rina Magallon RN Unavailable [phone] Paula Reza MD Primary Care Provider [phone] Griffin Joshi MD Unavailable Roopa Almonte MD Unavailable [phone] Basilio Morillo DO Unavailable [phone] Lydia Bernstein PA-C Unavailable Kate Rosa Maria CHW Unavailable Augustine Callaway MD Unavailable Paula Reza MD Unavailable Keerthi Miner APRN TESTING TECH Unavailable Herman, Shahida Cummings APRN TESTING TECH Unavailable Un available Porsha Michaels APRN TESTING TECH Unavailable [phone] Paula Reza MD Unavailable Herman, Shahida Cummings APRN TESTING TECH Unavailable Un available Daylin Ludwig EP Unavailable [phone] Laurel Velasquez MD Unavailable [phone] Fietedavid, Daylin Juárez EP Unavailable [phone] Paula Reza MD Unavailable Porsha Michaels APRN TESTING TECH Unavailable [phone] Laurel Velasquez MD Unavailable [phone] Herman, Shahida Cummings APRN TESTING TECH Unavailable Un available Marilin Montaño TESTING TECH Unavailable [phone] Esha Dewitt MD Unavailable [phone] Heather Mosquera MD Unavailable [phone] Paula Reza MD Unavailable Esha Dewitt MD Unavailable [phone] Valdo Escamilla PA-C Unavailable [phone] Nohelia Abarca PA-C Unavailable [phone] Heather Mosquera MD Unavailable [phone] Fawad York MD Unavailable [phone] Reason for Visit * Reason Onset Date Comments Patient Request 07/01/2021 Work letter - RN ULISES Encounter Details Date Type Department Care Team (Late st Contact Info) Description 07/01/2021 [facility] [place] [phone] Sahhida Sutton APRN TESTING TECH Patient Request (Work letter - RN ULISES [...] Ramon RN - 07/01/2021 3:15 PM CDT eDidre Ferrell, JEANNA Please see my chart message - patient is asking for a letter for his employer explaining why he sawanother provider and with is return to work date (RN left this part blank on letter as not sure what was discussed) visit with new pcp is not until 08/05/2021 Carolynn Ramon, Registered Nurse, ULISES (Patient Advocate Liason) [employer] [phone] * Telephone Encounter - Marquita Singh CMA [...] documented as of this encounter Care Teams Milieu Coordinator Relationship Specialty Start Date End Date Shahida Sutton APRN TESTING TECH PCP - General Nurse Practitioner 08/17/14 08/04/21 Paula Reza MD [address] [place], [place] [address] PCP - General Internal Medicine 08/05/21 Shahida Sutton APRN TESTING TECH Assigned PCP 07/12/14 09/30/21 Carolynn Ramon RN Personal Advocate & Liaison (PAL) 12/17/18 08/07/21 Anabela Barakat APRN TESTING TECH [address] [place] [address] Assigned Heart and Vascular Provider 08/15/20 08/05/21 Roopa Almonte MD [address] [facility] 200 [place] [address] Endocrinology, Diabetes, and Metabolism 01/19/21 [place] [address] [address] [place] [address] Assigned Musculoskeletal Provider 02/06/21 09/16/21 Maryse Burton, PAAna MariaC [address] [place] [address] Physician Documentation Nurse Dermatology 04/14/21 Roopa Almonte MD [address] [facility] 200 [place] [address] Hospitalist Endocrinology, Diabetes, and Metabolism 05/30/21 Griffin Joshi MD [address] [place] [address] Cardiovascular Disease 07/25/21 Rina Magallon, RN Lead Track Service Person 07/29/21 07/11/22 Griffin Joshi MD [address] [place] [address] Assigned Heart and Vascular Provider 08/06/21 10/07/21 Roopa Almonte MD [address] [facility] 200 [place], [place] [address] Assigned Endocrinology Provider 09/10/21 [place] [address] [facility] [place] [address] Assigned Musculoskeletal Provider 09/17/21 10/14/21 Lydia Bernstein PA-C [address] [place], [place] [address] Assigned PCP 10/01/21 10/21/21 Rosa Maria Love CHW Community Health Worker 10/06/21 07/11/22 [place] [address] [facility] [facility] [address] [place] [address] Assigned Musculoskeletal Provider 10/15/21 04/26/23 Paula Reza MD [address] [place] [address] Assigned PCP 10/22/21 12/23/21 Keerthi Miner APRN TESTING TECH [address] [place] [address] Assigned Heart and Vascular Provider 10/08/21 02/10/22 Shahida Sutton APRN TESTING TECH Assigned PCP 12/24/21 03/24/22 Porsha Michaels APRN TESTING TECH [address] [place] [address] Assigned Heart and Vascular Provider 02/11/22 05/12/22 Paula Reza MD [address] [place] [address] Assigned PCP 03/25/22 04/07/22 Shahida Sutton APRN TESTING TECH [address] [place] [address] Assigned PCP 04/08/22 06/30/22 Daylin Ludwig EP [facility] [address] [address] Cardiac Rehabilitation Therapist 05/16/23 Laurel Velasquez MD [address] [place] [address] Assigned Heart and Vascular Provider 05/13/22 06/30/22 Daylin Ludwig EP [facility] [address] [place] [address] Cardiac Rehabilitation Therapist 06/08/22 06/09/23 Paula Reza MD [address] [facility] [address] [place], [place] [address] Assigned PCP 07/01/22 07/07/22 Porsha Michaels APRN TESTING TECH [address] [place] [address] Assigned Heart and Vascular Provider 07/01/22 07/07/22 Laurel Velasquez MD [address] [place] [address] Assigned Heart and Vascular Provider 07/08/22 08/04/22 Shahida Sutton APRN TESTING TECH Assigned PCP 07/08/22 09/08/22 Marilin Montaño, TESTING TECH [address] [place] [address] Assigned Heart and Vascular Provider 08/05/22 Esha Dewitt MD [address] [place] [address] 36 [place], [place] [address] Gastroenterology 09/06/22 Heather Mosquera MD [address] [place] [address] Internal Medicine 09/06/22 Paula Reza MD [address] [place] [address] Assigned PCP 09/09/22 01/05/23 Esha Dewitt MD 420 [facility] 36 [place] [address] Assigned Gastroenterology Provider 09/23/22 Valdo Escamilla PA-C [facility] [facility] [address] [place], [place] [address] Assigned Neuroscience Provider 09/30/22 Nohelia Abarca PA-C [address] [facility] [place] [address] Physician Documentation Nurse Gastroenterology 10/03/22 Heather Mosquera MD [address] [facility] [address] [address] [facility] 150 [place] [address] Assigned PCP 01/06/23 Fawad York MD 909 [place] [address] Assigned Musculoskeletal Provider 04/27/23 06/25/23 documented as of this encounter
--- OUTSIDE RECORDS SUMMARY | 2023-12-25 08:14 | XMS_ITS | Encounter Summary ---
Author Organization [facility] Address [address] [place] [address] Care Team Providers Care Car Chaser Name Role Phone HermanShahida APRN SERVICE DELIVERY MANAGER Primary Care Provi ford Unavailable Shahida Sutton APRN SERVICE DELIVERY MANAGER Unavailable Un available Carolynn Ramon RN Unavailable [phone] Anabela Barakat APRN SERVICE DELIVERY MANAGER Unavailable Roopa Almonte MD Unavailable [phone] Augustine Callaway MD Unavailable Maryse Burton PA-C Unavailable [phone] Marquita Starkey MD Unavailable [phone] Roopa Almonte MD Unavailable [phone] Griffin Joshi MD Unavailable Rina Magallon RN Unavailable [phone] Paula Reza MD Primary Care Provider [phone] Griffin Joshi MD Unavailable Roopa Almonte MD Unavailable [phone] Basilio Morillo DO Unavailable [phone] Lydia BernsteinC Unavailable Rosa Maria Love Unavailable Augustine Callaway MD Unavailable Paula Reza MD Unavailable Keerthi Miner APRN SERVICE DELIVERY MANAGER Unavailable Herman, Shahida Cummings APRN SERVICE DELIVERY MANAGER Unavailable Un available Porsha Michaels APRN SERVICE DELIVERY MANAGER Unavailable [phone] Paula Reza MD Unavailable Herman, Shahida Cummings APRN SERVICE DELIVERY MANAGER Unavailable Un available Daylin Ludwig Unavailable [phone] Laurel Velasquez MD Unavailable Daylin Ludwig Unavailable [phone] Paula Reza MD Unavailable Porsha Michaels APRN SERVICE DELIVERY MANAGER Unavailable [phone] Laurel Velasquez MD Unavailable Herman, Shahida Cummings APRN SERVICE DELIVERY MANAGER Unavailable Un available Marilin Montaño SERVICE DELIVERY MANAGER Unavailable Esha Dewitt MD Unavailable [phone] Heather Mosquera MD Unavailable [phone] Paula Reza MD Unavailable Esha Dewitt MD Unavailable [phone] Valdo Escamilla PA-C Unavailable [phone] Nohelia Abarca-C Unavailable [phone] Heather Mosquera MD Unavailable Fawad York MD Unavailable [phone] Reason for Visit * Reason Comments Medication Refill Encounter Details Date Type Department Care Team (Late st Contact Info) Description 02/21/[address] [place] [address] Shahida Sutton APRN SERVICE DELIVERY MANAGER Medication Refill Social History Tobacco Use [...] COVID-19? No / Unsure 02/07/2021 7:[address] CROSSING GUARD documented as of this encounter Miscellaneous Notes * Telephone Encounter - Marilin Cuevas RN - 02/21/2021 2:[address] CROSSING GUARD Routing refill request to provider for review/approval because: Drug not on the [facility] refill protocol Marilin Cueavs RN [facility] -- Triage Nurse CROSSING GUARD documented in this encounter Plan of Treatment [...] documented as of this encounter Care Teams Car Chaser Relationship Specialty Start Date End Date Shahida Sutton APRN SERVICE DELIVERY MANAGER PCP - General Nurse Practitioner 08/17/14 08/04/21 Paula Reza MD [address] [facility] 200 [place] [address] PCP - General Internal Medicine 08/05/21 Shahida Sutton, ACCOUNT STRATEGIST SERVICE DELIVERY MANAGER Assigned PCP 07/12/14 09/30/21 Carolynn Ramon RN Personal Advocate & Liaison (PAL) 12/17/18 08/07/21 Anabela Barakat APRN SERVICE DELIVERY MANAGER 1700 [place] [address] Assigned Heart and Vascular Provider 08/15/20 08/05/21 Roopa Almonte MD [address] [address] Endocrinology, Diabetes, and Metabolism 01/19/21 [place] [address] [address] Assigned Musculoskeletal Provider 02/06/21 09/16/21 Maryse Burton, PA-C [address] [place] [address] Physician Spider Assembler Dermatology 04/14/21 Marquita Starkey MD [address] [address] Internal Medicine 05/06/21 05/06/21 Roopa Almonte MD [address] [address] Hospitalist Endocrinology, Diabetes, and Metabolism 05/30/21 Griffin Joshi MD [address] [place] [address] Cardiovascular Disease 07/25/21 Rina Magallon, RN Lead Public Policy Analyst 07/29/21 07/11/22 Griffin Joshi MD [address] [place] [address] Assigned Heart and Vascular Provider 08/06/21 10/07/21 Roopa Almotne MD [address] [place] [address] 200 [place] [address] Assigned Endocrinology Provider 09/10/21 [place] [address] [facility] [place] [address] Assigned Musculoskeletal Provider 09/17/21 10/14/21 Lydia Bernstein PA-C [address] [place] [address] Assigned PCP 10/01/21 10/21/21 Rosa Maria Love CHW Community Health Worker 10/06/21 07/11/22 [place] [address] [address] [place] [address] Assigned Musculoskeletal Provider 10/15/21 04/26/23 Paula Reza MD [address] [place] [address] Assigned PCP 10/22/21 12/23/21 Keerthi Miner APRN SERVICE DELIVERY MANAGER [address] [place] [address] Assigned Heart and Vascular Provider 10/08/21 02/10/22 Shahida Sutton APRN SERVICE DELIVERY MANAGER Assigned PCP 12/24/21 03/24/22 Porsha Michaels APRN SERVICE DELIVERY MANAGER [address] [address] Assigned Heart and Vascular Provider 02/11/22 05/12/22 Paula Reza MD [address] [place] [address] Assigned PCP 03/25/22 04/07/22 Shahida Sutton APRN SERVICE DELIVERY MANAGER [address] [place] [place] [address] Assigned PCP 04/08/22 06/30/22 Daylin Ludwig, EP [facility] [address] [address] Cardiac Rehabilitation Therapist 05/16/23 Laurel Velasquez MD [address] [address] Assigned Heart and Vascular Provider 05/13/22 06/30/22 Daylin Ludwig, EP [facility] [address] [address] Cardiac Rehabilitation Therapist 06/08/22 06/09/23 Paula Reza MD [address] [place], [place] [address] Assigned PCP 07/01/22 07/07/22 Porsha Michaels APRN SERVICE DELIVERY MANAGER [address] [place] [address] Assigned Heart and Vascular Provider 07/01/22 07/07/22 Laurel Velasquez MD [address] [place] [address] Assigned Heart and Vascular Provider 07/08/22 08/04/22 Shahida Sutton APRN SERVICE DELIVERY MANAGER Assigned PCP 07/08/22 09/08/22 Marilin Montaño, SERVICE DELIVERY MANAGER [address] [place] [address] Assigned Heart and Vascular Provider 08/05/22 Esha Dewitt MD [address] [place] [address] 36 [place], [place] [address] Gastroenterology 09/06/22 Heather Mosquera MD [address] [place] [address] Internal Medicine 09/06/22 Paula Reza MD [address] [place] [address] Assigned PCP 09/09/22 01/05/23 Esha Dewitt MD 420 [facility] 36 [place] [address] Assigned Gastroenterology Provider 09/23/22 Valdo Escamilla PA-C [address] [facility] [address] [place] [address] Assigned Neuroscience Provider 09/30/22 Nohelia Abarca PA-C [address] [place] [address] Physician Spider Assembler Gastroenterology 10/03/22 Heather Mosquera MD [address] [place] [address] Assigned PCP 01/06/23 Fawad York MD 909 [place] [address] Assigned Musculoskeletal Provider 04/27/23 06/25/23 documented as of this encounter
--- OUTSIDE RECORDS SUMMARY | 2023-12-25 08:14 | XMS_ITS | Encounter Summary ---
Author Organization [facility] Address [address] [place] [address] Care Team Providers Care Siebel Solution Architect Name Role Phone HermanShahida APRN MEDICAL ATTENDANT Primary Care Provi ford Unavailable Shahida Sutton APRN MEDICAL ATTENDANT Unavailable Un available Carolynn Ramon RN Unavailable [phone] Anabela Barakat APRN MEDICAL ATTENDANT Unavailable Fawad York MD Unavailable [phone] Roopa Almonte MD Unavailable [phone] Augustine Callaway MD Unavailable Maryse Burton PA-C Unavailable [phone] Marquita Starkey MD Unavailable [phone] Roopa Almonte MD Unavailable [phone] Griffin Joshi MD Unavailable Rina Magallon RN Unavailable [phone] Paula Reza MD Primary Care Provider [phone] Griffin Joshi MD Unavailable Roopa Almonte MD Unavailable [phone] Basilio Morillo DO Unavailable Lydia Bernstein-C Unavailable Rosa Maria Love Unavailable Augustine Callaway MD Unavailable Paula Reza MD Unavailable Keerthi Miner APRN MEDICAL ATTENDANT Unavailable [phone] Herman, Shahida Cummings APRN MEDICAL ATTENDANT Unavailable Un available Porsha Michaels APRN MEDICAL ATTENDANT Unavailable Paula Reza MD Unavailable Herman, Shahida Cummings APRN MEDICAL ATTENDANT Unavailable Un available Daylin Ludwig Unavailable Laurel Velasquez MD Unavailable Daylin Ludwig Unavailable Paula Reza MD Unavailable Porsha Michaels APRN MEDICAL ATTENDANT Unavailable Laurel Velasquez MD Unavailable Herman, Shahida Cummings APRN MEDICAL ATTENDANT Unavailable Un available Marilin Montaño MEDICAL ATTENDANT Unavailable Esha Dewitt MD Unavailable [phone] Heather Mosquera MD Unavailable Paula Reza MD Unavailable Esha Dewitt MD Unavailable [phone] Valdo Escamilla-C Unavailable Nohelia Abarca PA-C Unavailable Heather Mosquera MD Unavailable Fawad York MD Unavailable [phone] Encounter Details Date Type Department Care Team (Late st Contact Info) Description 12/14/[address] [address] Shahida Sutton APRN CNP Social [...] orthopedist regarding his shoulder should be in [facility] and seeing PT with [facility] Phone Number patient can be reached at: Home number on file [phone] (home) Best Time: Can we leave a [...] documented as of this encounter Care Teams Siebel Solution Architect Relationship Specialty Start Date End Date Shahida Sutton APRN MEDICAL ATTENDANT PCP - General Nurse Practitioner 08/17/14 08/04/21 Paula Reza MD [address] [place], [place] [address] PCP - General Internal Medicine 08/05/21 Shahida Sutton APRN MEDICAL ATTENDANT Assigned PCP 07/12/14 09/30/21 Carolynn Ramon, KASIE Personal Advocate & Liaison (PAL) 12/17/18 08/07/21 Anabela Barakat APRN MEDICAL ATTENDANT 1700 [place] [address] Assigned Heart and Vascular Provider 08/15/20 08/05/21 Fawad York MD 909 [place], [place] [address] Assigned Musculoskeletal Provider 12/05/20 02/05/21 Roopa Almonte MD [address] 200 [place] [address] Endocrinology, Diabetes, and Metabolism 01/19/21 [place] [address] [facility] 300 [place] [address] Assigned Musculoskeletal Provider 02/06/21 09/16/21 Maryse Burton PA-C [address] [facility] [place] [address] Physician Home Hospice Aide Dermatology 04/14/21 Marquita Starkey MD [address] [facility] 200 [place], [place] [address] Internal Medicine 05/06/21 05/06/21 Roopa Almonte MD [address] [facility] 200 [place] [address] Hospitalist Endocrinology, Diabetes, and Metabolism 05/30/21 Griffin Joshi MD [address] [facility] [address] [place] [id number] Cardiovascular Disease 07/25/21 Rina Magallon, RN Lead Director Dance 07/29/21 07/11/22 Griffin Joshi MD [address] [facility] [address] [place] [address] Assigned Heart and Vascular Provider 08/06/21 10/07/21 Roopa Almonte MD [address] [facility] 200 [place], [place] [address] Assigned Endocrinology Provider 09/10/21 [place] [address] [place] [address] Assigned Musculoskeletal Provider 09/17/21 10/14/21 Lydia Bernstein PA-C [address] [place] [address] Assigned PCP 10/01/21 10/21/21 Rosa Maria Love Cristina Community Health Worker 10/06/21 07/11/22 [place] [address] [place] [address] Assigned Musculoskeletal Provider 10/15/21 04/26/23 Paula Reza MD [address] 200 [place] [address] Assigned PCP 10/22/21 12/23/21 Keerthi Miner APRN MEDICAL ATTENDANT [address] [place] [address] Assigned Heart and Vascular Provider 10/08/21 02/10/22 Shahida Sutton APRN MEDICAL ATTENDANT Assigned PCP 12/24/21 03/24/22 Porsha Michaels APRN MEDICAL ATTENDANT [address] [place] [address] Assigned Heart and Vascular Provider 02/11/22 05/12/22 Paula Reza MD [address] 200 [place] [address] Assigned PCP 03/25/22 04/07/22 Shahida Sutton APRN MEDICAL ATTENDANT [address] [place] [address] Assigned PCP 04/08/22 06/30/22 Daylin Ludwig, MIKI [facility] [address] [place] [address] Cardiac Rehabilitation Therapist 05/16/23 Laurel Velasquez MD [address] [place] [address] Assigned Heart and Vascular Provider 05/13/22 06/30/22 Daylin Ludwig, MIKI [facility] [address] [place] [address] Cardiac Rehabilitation Therapist 06/08/22 06/09/23 Paula Reza MD [address] [facility] 200 [place] [address] Assigned PCP 07/01/22 07/07/22 Porsha Michaels APRN MEDICAL ATTENDANT [address] [place] [address] Assigned Heart and Vascular Provider 07/01/22 07/07/22 Laurel Velasquez MD [address] [place] [address] Assigned Heart and Vascular Provider 07/08/22 08/04/22 Shahida Sutton APRN MEDICAL ATTENDANT Assigned PCP 07/08/22 09/08/22 Marilin Montaño, MEDICAL ATTENDANT [address] [place] [address] Assigned Heart and Vascular Provider 08/05/22 Esha Dewitt MD [address] [address] Gastroenterology 09/06/22 Heather Mosquera MD [address] [facility] [address] [place] [address] Internal Medicine 09/06/22 Paula Reza MD [address] [facility] 200 [place] [address] Assigned PCP 09/09/22 01/05/23 Esha Dewitt MD [address] [place] [address] Assigned Gastroenterology Provider 09/23/22 Valdo Escamilla PA-C [address] [facility] [address] 103 [place] [address] Assigned Neuroscience Provider 09/30/22 Nohelia Abarca PA-C 2450 [place] [address] Physician Home Hospice Aide Gastroenterology 10/03/22 Heather Mosquera MD [address] [facility] [address] [facility] 150 [place] [address] Assigned PCP 01/06/23 Fawad York MD [address] [place] [address] Assigned Musculoskeletal Provider 04/27/23 06/25/23 documented as of this encounter
--- OUTSIDE RECORDS SUMMARY | 2023-12-25 08:14 | XMS_ITS | Encounter Summary ---
Author Organization [facility] Address [address] [place] [address] Care Team Providers Care Telemarketing Sales Representative Name Role Phone HermanShahida APRN [employer]F [employer] Primary Care Provi ford Unavailable Shahida Sutton APRN [employer] Unavailable Un available Carolynn Ramon RN Unavailable [phone] Anabela Barakat APRN [employer] Unavailable Fawad York MD Unavailable [phone] Roopa Almonte MD Unavailable [phone] Augustine Callaway MD Unavailable Maryse Burton PA-C Unavailable [phone] Marquita Starkey MD Unavailable [phone] Roopa Almonte MD Unavailable [phone] Griffin Joshi MD Unavailable Rina Magallon RN Unavailable [phone] Paula Reza MD Primary Care Provider [phone] Griffin Joshi MD Unavailable Roopa Almonte MD Unavailable [phone] Basilio Morillo DO Unavailable Lydia Bernstein PA-C Unavailable Rosa Maria Love Unavailable Augustine Callaway MD Unavailable Paula Reza MD Unavailable Keerthi Miner APRN [employer] Unavailable [phone] Herman, Shahida Cummings DELIVERY MGR [employer] Unavailable Un available Porsha Michaels APRN [employer] Unavailable Paula Reza MD Unavailable Herman, Shahida Cummings APRN [employer] Unavailable Un available Daylin Ludwig Unavailable Laurel Velasquez MD Unavailable Daylin Ludwig Unavailable Paula Reza MD Unavailable Porsha Michaels APRN [employer] Unavailable Laurel Velasquez MD Unavailable Herman, Shahida Cummings APRN [employer] Unavailable Un available Marilin Montaño [employer] Unavailable Esha Dewitt MD Unavailable [phone] Heather Mosquera MD Unavailable Paula Reza MD Unavailable Esha Dewitt MD Unavailable [phone] Valdo Escamilla PA-C Unavailable Nohelia Abarca PA-C Unavailable [phone] Heather Mosquera MD Unavailable Fawad York MD Unavailable Encounter Details Date Type Department Care Team (Late st Contact Info) Description 01/04/2021 My[facility] Medical Advice [address] [phone] Shahida Sutton APRN CNP Social History Tobacco [...] documented as of this encounter Care Teams Telemarketing Sales Representative Relationship Specialty Start Date End Date Shahida Sutton APRN CNP PCP - General Nurse Practitioner 08/17/14 08/04/21 Paula Reza MD [address] [facility] 200 [place] [address] PCP - General Internal Medicine 08/05/21 Shahida Sutton APRN [employer] Assigned PCP 07/12/14 09/30/21 Carolynn Ramon, KASIE Personal Advocate & Liaison (PAL) 12/17/18 08/07/21 Anabela Barakat, DELIVERY MGR [employer] 1700 [place] [address] Assigned Heart and Vascular Provider 08/15/20 08/05/21 Fawad York MD 909 [place], [place] [address] Assigned Musculoskeletal Provider 12/05/20 02/05/21 Roopa Almonte MD [address] [facility] 200 [place] [address] Endocrinology, Diabetes, and Metabolism 01/19/21 [place] [address] [facility] 300 [place] [address] Assigned Musculoskeletal Provider 02/06/21 09/16/21 Maryse Burton, PAAna MariaC 5200 [place] [address] Physician Brazing Machine Feeder Dermatology 04/14/21 Marquita Starkey MD [address] [place] [address] Internal Medicine 05/06/21 05/06/21 Roopa Almonte MD [address] [place] [address] Hospitalist Endocrinology, Diabetes, and Metabolism 05/30/21 Griffin Joshi MD [address] [facility] [address] [place] [address] Cardiovascular Disease 07/25/21 Rina Magallon, RN Lead Accountant 07/29/21 07/11/22 Griffin Joshi MD [address] [facility] [facility] [address] [place] [address] Assigned Heart and Vascular Provider 08/06/21 10/07/21 Roopa Almonte MD [address] [place] [address] 200 [place], [place] [address] Assigned Endocrinology Provider 09/10/21 [place] [address] [facility] [place] [address] Assigned Musculoskeletal Provider 09/17/21 10/14/21 Lydia Bernstein PA-C [address] [facility] [address] [facility] 150 [place] [address] Assigned PCP 10/01/21 10/21/21 Rosa Maria Love CHW Community Health Worker 10/06/21 07/11/22 [place] [address] [facility] 300 [place] [address] Assigned Musculoskeletal Provider 10/15/21 04/26/23 Paula Reza MD [address] [facility] 200 [place], [place] [address] Assigned PCP 10/22/21 12/23/21 Keerthi Miner DELIVERY MGR [employer] [address] [place] [address] Assigned Heart and Vascular Provider 10/08/21 02/10/22 Shahida Sutton, DELIVERY MGR [employer] Assigned PCP 12/24/21 03/24/22 Porsha Michaels DELIVERY MGR [employer] [address] [place] [address] Assigned Heart and Vascular Provider 02/11/22 05/12/22 Paula Reza MD [address] [facility] 200 [place] [address] Assigned PCP 03/25/22 04/07/22 Shahida Sutton DELIVERY MGR [employer] [address] [place] [address] Assigned PCP 04/08/22 06/30/22 Daylin Ludwig, MIKI [facility] [address] [place] [address] Cardiac Rehabilitation Therapist 05/16/23 Laurel Velasquez MD [address] [place] [address] Assigned Heart and Vascular Provider 05/13/22 06/30/22 Daylin Ludwig, MIKI [facility] [address] [place] [address] Cardiac Rehabilitation Therapist 06/08/22 06/09/23 Paula Reza MD [address] [place] [address] Assigned PCP 07/01/22 07/07/22 Porsha Michaels APRN [employer] [address] [place] [address] Assigned Heart and Vascular Provider 07/01/22 07/07/22 Laurel Velasquez MD [address] [place] [address] Assigned Heart and Vascular Provider 07/08/22 08/04/22 Shahida Sutton APRN [employer] Assigned PCP 07/08/22 09/08/22 Marilin Montaño [employer] [address] [place] [address] Assigned Heart and Vascular Provider 08/05/22 Esha Dewitt MD 420 [facility] 36 [place] [address] Gastroenterology 09/06/22 Heather Mosquera MD [address] [place] [address] Internal Medicine 09/06/22 Paula Reza MD [address] [place] [address] Assigned PCP 09/09/22 01/05/23 Esha Dewitt MD 420 [facility] 36 [place] [address] Assigned Gastroenterology Provider 09/23/22 Valdo Escamilla PA-C 6363 [facility] 103 [place] [address] Assigned Neuroscience Provider 09/30/22 Nohelia Abarca PA-C 2450 [place] [address] Physician Brazing Machine Feeder Gastroenterology 10/03/22 Heather Mosquera MD 6545 [facility] 150 [place] [address] Assigned PCP 01/06/23 Fawad York MD 909 [place] [address] Assigned Musculoskeletal Provider 04/27/23 06/25/23 documented as of this encounter
--- OUTSIDE RECORDS SUMMARY | 2023-12-25 08:14 | XMS_ITS | Encounter Summary ---
Author Organization [facility] Address [address] [place] [address] Care Team Providers Care Credit Charge Authorizer Name Role Phone HermanShahida APRN CHIEF RESOURCE OFFICER Primary Care Provi ford Unavailable Shahida Sutton APRN CHIEF RESOURCE OFFICER Unavailable Un available Carolynn Ramon RN Unavailable [phone] Anabela Barakat APRN CHIEF RESOURCE OFFICER Unavailable Basilio Morillo DO Unavailable Fawad York MD Unavailable [phone] Roopa Almonte MD Unavailable [phone] Augustine Callaway MD Unavailable Maryse Burton PA-C Unavailable [phone] Marquita Starkey MD Unavailable [phone] Roopa Almonte MD Unavailable [phone] Griffin Joshi MD Unavailable Rina Magallon RN Unavailable [phone] Paula Reza MD Primary Care Provider [phone] Griffin Joshi MD Unavailable Roopa Almonte MD Unavailable [phone] IliaBasilio DO Unavailable Lydia Bernstein PA-C Unavailable KateRosa Maria RACHELL Unavailable [phone] Augustine Callaway MD Unavailable Paula Reza MD Unavailable Keerthi Miner APRN CHIEF RESOURCE OFFICER Unavailable [phone] Herman, Shahida Cummings APRN CHIEF RESOURCE OFFICER Unavailable Un available Porsha Michaels APRN CHIEF RESOURCE OFFICER Unavailable [phone] Paula Reza MD Unavailable Herman, Shahida Cummings APRN CHIEF RESOURCE OFFICER Unavailable Un available Daylin Ludwig Unavailable [phone] Laurel Velasquez MD Unavailable [phone] FiDaylin sullivan EP Unavailable [phone] Paula Reza MD Unavailable Porsha Michaels APRN CHIEF RESOURCE OFFICER Unavailable [phone] Laurel Velasquez MD Unavailable Herman, Shahida Cummings APRN CHIEF RESOURCE OFFICER Unavailable Un available Marilin Montaño CHIEF RESOURCE OFFICER Unavailable [phone] Esha Dewitt MD Unavailable [phone] Heather Mosquera MD Unavailable [phone] Paula Reza MD Unavailable Esha Dewitt MD Unavailable [phone] Valdo Escamilla PA-C Unavailable [phone] Nohelia Abarca-C Unavailable [phone] Heather Mosquera MD Unavailable [phone] Fawad York MD Unavailable Reason for Visit * Reason Comments Medication Refill Encounter Details Date Type Department Care Team (Late st Contact Info) Description 11/23/[address] [address] Shahida Sutton APRN CNP Medication [...] documented as of this encounter Care Teams Credit Charge Authorizer Relationship Specialty Start Date End Date Shahida Sutton APRN CNP PCP - General Nurse Practitioner 08/17/14 08/04/21 Paula Reza MD [address] [facility] 200 [place] [address] PCP - General Internal Medicine 08/05/21 Shahida Sutton, CYTOTECHNOLOGIST/CYTOLOGY SUPERVISOR CHIEF RESOURCE OFFICER Assigned PCP 07/12/14 09/30/21 Carolynn Ramon, KASIE Personal Advocate & Liaison (PAL) 12/17/18 08/07/21 Anabela Barakat APRN CHIEF RESOURCE OFFICER 1700 [place] [address] Assigned Heart and Vascular Provider 08/15/20 08/05/21 [place] [address] [place] [address] Assigned Musculoskeletal Provider 11/14/20 12/04/20 Fawad York MD 909 [place], [place] [address] Assigned Musculoskeletal Provider 12/05/20 02/05/21 Roopa Almonte MD [address] [facility] 200 [place] [address] Endocrinology, Diabetes, and Metabolism 01/19/21 [place] [address] [facility] 300 [place] [address] Assigned Musculoskeletal Provider 02/06/21 09/16/21 Maryse Burton PA-C 5200 [place] [address] Physician Lorry Weigher Dermatology 04/14/21 Marquita Starkey MD [address] [facility] 200 [place] [address] Internal Medicine 05/06/21 05/06/21 Roopa Almonte MD [address] [facility] 200 [place] [address] Hospitalist Endocrinology, Diabetes, and Metabolism 05/30/21 Griffin Jsohi MD [address] [place] [address] Cardiovascular Disease 07/25/21 Rina Magallon RN Lead Osteopathic Resident 07/29/21 07/11/22 Griffin Joshi MD [address] [place] [address] Assigned Heart and Vascular Provider 08/06/21 10/07/21 Roopa Almonte MD [address] [place] [address] 200 [place], [place] [address] Assigned Endocrinology Provider 09/10/21 [place] [address] [facility] [place] [address] Assigned Musculoskeletal Provider 09/17/21 10/14/21 Lydia Bernstein PA-C [address] [place] [address] Assigned PCP 10/01/21 10/21/21 Rosa Maria Love CHW Community Health Worker 10/06/21 07/11/22 [place] [address] [place] [address] Assigned Musculoskeletal Provider 10/15/21 04/26/23 Paula Reza MD [address] [place] [address] Assigned PCP 10/22/21 12/23/21 Keerthi Miner APRN CHIEF RESOURCE OFFICER [address] [place] [address] Assigned Heart and Vascular Provider 10/08/21 02/10/22 Shahida Sutton APRN CHIEF RESOURCE OFFICER Assigned PCP 12/24/21 03/24/22 Porsha Michaels APRN CHIEF RESOURCE OFFICER [address] [place] [address] Assigned Heart and Vascular Provider 02/11/22 05/12/22 Paula Reza MD [address] [place] [address] Assigned PCP 03/25/22 04/07/22 Shahida Sutton APRN CHIEF RESOURCE OFFICER [address] [place] [address] Assigned PCP 04/08/22 06/30/22 Daylin Ludwig EP [facility] [address] [place] [address] Cardiac Rehabilitation Therapist 05/16/23 Laurel Velasquez MD [address] [place] [address] Assigned Heart and Vascular Provider 05/13/22 06/30/22 Daylin Ludwig EP [facility] [address] [place] [address] Cardiac Rehabilitation Therapist 06/08/22 06/09/23 Paula Reza MD [address] [place] [address] Assigned PCP 07/01/22 07/07/22 Porsha Michaels APRN CHIEF RESOURCE OFFICER [address] [place] [address] Assigned Heart and Vascular Provider 07/01/22 07/07/22 Laurel Velasquez MD [address] [place] [address] Assigned Heart and Vascular Provider 07/08/22 08/04/22 Shahida Sutton APRN CHIEF RESOURCE OFFICER Assigned PCP 07/08/22 09/08/22 Marilin Montaño, CHIEF RESOURCE OFFICER [address] [place] [address] Assigned Heart and Vascular Provider 08/05/22 Esha Dewitt MD [address] [place] [address] 36 [place], [place] [address] Gastroenterology 09/06/22 Heather Mosquera MD [address] [place] [address] Internal Medicine 09/06/22 Paula Reza MD [address] E [facility] 200 [place], [place] [address] Assigned PCP 09/09/22 01/05/23 Esha Dewitt MD 420 [facility] 36 [place], [place] [address] Assigned Gastroenterology Provider 09/23/22 Valdo Escamilla PA-C [address] [facility] [address] [place], [place] [address] Assigned Neuroscience Provider 09/30/22 Nohelia Abarca PA-C 2450 [place], [place] [address] Physician Lorry Weigher Gastroenterology 10/03/22 Heather Mosquera MD 6545 [facility] 150 [place], [place] [address] Assigned PCP 01/06/23 Fawad York MD 909 [place], [place] [address] Assigned Musculoskeletal Provider 04/27/23 06/25/23 documented as of this encounter
--- OUTSIDE RECORDS SUMMARY | 2023-12-25 08:14 | XMS_ITS | Encounter Summary ---
Author Organization [place] Address [address] [place] [address] Care Team Providers Care Generator Mechanic Name Role Phone HermanShahida APRN MACHINE PACKAGING TECHNICIAN Primary Care Provi ford Unavailable Shahida Sutton APRN MACHINE PACKAGING TECHNICIAN Unavailable Un available Carolynn Ramon RN Unavailable [phone] Anabela Barakat APRN MACHINE PACKAGING TECHNICIAN Unavailable Roopa Almonte MD Unavailable [phone] Augustine Callaway MD Unavailable Maryse Burton PA-C Unavailable [phone] Roopa Almonte MD Unavailable [phone] Griffin Joshi MD Unavailable Rina Magallon RN Unavailable [phone] Paula Reza MD Primary Care Provider [phone] Griffin Joshi MD Unavailable Roopa Almonte MD Unavailable [phone] Basilio Morillo DO Unavailable [phone] Lydia Bernstein PA-C Unavailable Kate Rosa Maria Cristina Unavailable Augustine Callaway MD Unavailable Paula Reza MD Unavailable Keerthi Miner APRN MACHINE PACKAGING TECHNICIAN Unavailable Herman, Shahida Cummings CROP QUANTITATIVE GENETICIST MACHINE PACKAGING TECHNICIAN Unavailable Un available Porsha Michaels APRN MACHINE PACKAGING TECHNICIAN Unavailable [phone] Paula Reza MD Unavailable Herman, Shahida Cummings APRN MACHINE PACKAGING TECHNICIAN Unavailable Un available Daylin Ludwig EP Unavailable [phone] Laurel Velasquez MD Unavailable [phone] Fietedavid, Daylin Juárez EP Unavailable [phone] Paula Reza MD Unavailable Porsha Michaels APRN MACHINE PACKAGING TECHNICIAN Unavailable [phone] Laurel Velasquez MD Unavailable [phone] Herman, Shahida Cummings APRN MACHINE PACKAGING TECHNICIAN Unavailable Un available Marilin Montaño MACHINE PACKAGING TECHNICIAN Unavailable [phone] Esha Dewitt MD Unavailable [phone] Heather Mosquera MD Unavailable [phone] Paula Reza MD Unavailable Esha Dewitt MD Unavailable [phone] Valdo Escamilla PA-C Unavailable + [phone] Nohelia Abarca PA-C Unavailable [phone] Heather Mosquera MD Unavailable [phone] Fawad York MD Unavailable [phone] Encounter Details Date Type Department Care Team (Late st Contact Info) Description 05/24/2021 [facility] [address] [address] Anthony, Mary Kay, [place] Social [...] COVID-19? 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 documented as of this encounter Plan of [...] documented as of this encounter Care Teams Generator Mechanic Relationship Specialty Start Date End Date Shahida Sutton APRN MACHINE PACKAGING TECHNICIAN PCP - General Nurse Practitioner 08/17/14 08/04/21 Paula Reza MD [address] [facility] 200 [place] [address] PCP - General Internal Medicine 08/05/21 Shahida Sutton APRN MACHINE PACKAGING TECHNICIAN Assigned PCP 07/12/14 09/30/21 Carolynn Ramon RN Personal Advocate & Liaison (PAL) 12/17/18 08/07/21 Anabela Barakat APRN MACHINE PACKAGING TECHNICIAN 1700 [place] [address] Assigned Heart and Vascular Provider 08/15/20 08/05/21 Roopa Almonte MD [address] [facility] 200 [place] [address] Endocrinology, Diabetes, and Metabolism 01/19/21 [place] [address] [facility] 300 [place] [address] Assigned Musculoskeletal Provider 02/06/21 09/16/21 Maryse Burton PA-C [address] [place] [address] Physician Plastering Contractor Dermatology 04/14/21 Roopa Almonte MD [address] [facility] 200 [place] [address] Hospitalist Endocrinology, Diabetes, and Metabolism 05/30/21 Griffin Joshi MD [address] [facility] [address] [place] [address] Cardiovascular Disease 07/25/21 Rina Magallon, RN Lead Evaporator 07/29/21 07/11/22 Griffin Joshi MD [address] [facility] [address] [place] [address] Assigned Heart and Vascular Provider 08/06/21 10/07/21 Roopa Almonte MD [address] 200 [place] [address] Assigned Endocrinology Provider 09/10/21 [place] [address] [facility] [place] [address] Assigned Musculoskeletal Provider 09/17/21 10/14/21 Lydia Bernstein PA-C [address] [place] [address] Assigned PCP 10/01/21 10/21/21 Rosa Maria Love CHW Community Health Worker 10/06/21 07/11/22 [place] [address] [place] [address] Assigned Musculoskeletal Provider 10/15/21 04/26/23 Paula Reza MD [address] [facility] 200 [place] [address] Assigned PCP 10/22/21 12/23/21 Keerthi Miner APRN MACHINE PACKAGING TECHNICIAN [address] [place] [address] Assigned Heart and Vascular Provider 10/08/21 02/10/22 Shahida Sutton APRN MACHINE PACKAGING TECHNICIAN Assigned PCP 12/24/21 03/24/22 Porsha Michaels APRN MACHINE PACKAGING TECHNICIAN [address] [place] [address] Assigned Heart and Vascular Provider 02/11/22 05/12/22 Paula Reza MD [address] [place] [address] Assigned PCP 03/25/22 04/07/22 Shahida Sutton APRN MACHINE PACKAGING TECHNICIAN [address] [place] [address] Assigned PCP 04/08/22 06/30/22 Daylin Ludwig, EP [facility] [address] [place] [address] Cardiac Rehabilitation Therapist 05/16/23 Laurel Velasquez MD [address] [place] [address] Assigned Heart and Vascular Provider 05/13/22 06/30/22 Daylin Ludwig, MIKI [facility] [address] [place] [address] Cardiac Rehabilitation Therapist 06/08/22 06/09/23 Paula Reza MD [address] [place] [address] Assigned PCP 07/01/22 07/07/22 Porsha Michaels APRN MACHINE PACKAGING TECHNICIAN [address] [place] [address] Assigned Heart and Vascular Provider 07/01/22 07/07/22 Laurel Velasquez MD [address] [place] [address] Assigned Heart and Vascular Provider 07/08/22 08/04/22 Shahida Sutton APRN MACHINE PACKAGING TECHNICIAN Assigned PCP 07/08/22 09/08/22 Marilin Montaño, MACHINE PACKAGING TECHNICIAN [address] [facility] [address] [place] [facility] [place] [address] Assigned Heart and Vascular Provider 08/05/22 Esha Dewitt MD [address] [address] MD Gastroenterology 09/06/22 Heather Mosquera MD [address] [place], [place] [address] Internal Medicine 09/06/22 Paula Reza MD [address] [facility] 200 [place], [place] [address] Assigned PCP 09/09/22 01/05/23 Esha Dewitt MD [address] [place] [address] Assigned Gastroenterology Provider 09/23/22 Valdo Escamilla PA-C [address] [facility] [address] [facility] [address] Assigned Neuroscience Provider 09/30/22 Nohelia Abarca PA-C [address]50 [place] [address] Physician Plastering Contractor Gastroenterology 10/03/22 Heather Mosquera MD [address] [place] [address] Assigned PCP 01/06/23 Fawad York MD 9 [place] [address] Assigned Musculoskeletal Provider 04/27/23 06/25/23 documented as of this encounter
--- OUTSIDE RECORDS SUMMARY | 2023-12-25 08:14 | XMS_ITS | Encounter Summary ---
Author Organization [place] Address [address] [place] [address] Care Team Providers Care Drug Safety Data Management Specialist Name Role Phone HermanShahida APRN BRANCH LEAD Primary Care Provi ford Unavailable Shahida Sutton APRN BRANCH LEAD Unavailable Un available Carolynn Ramon RN Unavailable [phone] Anabela Barakat APRN BRANCH LEAD Unavailable Roopa Almonte MD Unavailable [phone] Augustine Callaway MD Unavailable Maryse Burton PA-C Unavailable [phone] Roopa Almonte MD Unavailable [phone] Griffin Joshi MD Unavailable Rina Magallon RN Unavailable [phone] Paula Reza MD Primary Care Provider [phone] Griffin Joshi MD Unavailable Roopa Almonte MD Unavailable [phone] Basilio Morillo DO Unavailable [phone] Lydia Bernstein PA-C Unavailable Kate Rosa Maria [facility] Unavailable Augustine Callaway MD Unavailable Paula Reza MD Unavailable Keerthi Miner APRN BRANCH LEAD Unavailable Herman, Shahida Cummings RUG CUTTER BRANCH LEAD Unavailable Un available Porsha Michaels APRN BRANCH LEAD Unavailable [phone] Paula Reza MD Unavailable Herman, Shahida Cummings APRN BRANCH LEAD Unavailable Un available Daylin Ludwig EP Unavailable [phone] Laurel Velasquez MD Unavailable Fietedavid, Daylin Juárez EP Unavailable [phone] Paula Reza MD Unavailable Porsha Michaels APRN BRANCH LEAD Unavailable [phone] Laurel Velasquez MD Unavailable Herman, Shahida Cummings APRN BRANCH LEAD Unavailable Un available Marilin Montaño BRANCH LEAD Unavailable Esha Dewitt MD Unavailable [phone] Heather Mosquera MD Unavailable [phone] Paula Reza MD Unavailable Esha Dewitt MD Unavailable [phone] Valdo Escamilla PA-C Unavailable [phone] Nohelia Abarca PA-C Unavailable [phone] Heather Mosquera MD Unavailable [phone] Fawad York MD Unavailable [phone] Encounter Details Date Type Department Care Team (Late st Contact Info) Description 05/27/2021 [facility] Anticoagulation [address] [address] Jessica Ramires RN Social History Tobacco [...] COVID-19? 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 documented as of this encounter Plan [...] documented as of this encounter Care Teams Drug Safety Data Management Specialist Relationship Specialty Start Date End Date Shahida Sutton APRN BRANCH LEAD PCP - General Nurse Practitioner 08/17/14 08/04/21 Paula Reza MD [address] [facility] 200 [place] [address] PCP - General Internal Medicine 08/05/21 Shahida Sutton APRN BRANCH LEAD Assigned PCP 07/12/14 09/30/21 Carolynn Ramon RN Personal Advocate & Liaison (PAL) 12/17/18 08/07/21 Anabela Barakat APRN BRANCH LEAD 1700 [place] [address] Assigned Heart and Vascular Provider 08/15/20 08/05/21 Roopa Almonte MD [address] [facility] 200 [place] [address] Endocrinology, Diabetes, and Metabolism 01/19/21 [place] [address] [facility] 300 [place] [address] Assigned Musculoskeletal Provider 02/06/21 09/16/21 Maryse Burton PA-C [address] [place] [address] Physician Wellhead Pumper Dermatology 04/14/21 Roopa Almonte MD [address] [facility] 200 [place] [address] Hospitalist Endocrinology, Diabetes, and Metabolism 05/30/21 Griffin Joshi MD [address] [facility] [address] [place] [address] Cardiovascular Disease 07/25/21 Rina Magallon, RN Lead Food Service Representative 07/29/21 07/11/22 Griffin Joshi MD [address] [facility] [address] [place] [address] Assigned Heart and Vascular Provider 08/06/21 10/07/21 Roopa Almonte MD [address] [facility] 200 [place] [address] Assigned Endocrinology Provider 09/10/21 [place] [address] [facility] [place] [address] Assigned Musculoskeletal Provider 09/17/21 10/14/21 Lydia Bernstein PA-C [address] [place] [address] Assigned PCP 10/01/21 10/21/21 Rosa Maria Love CHW Community Health Worker 10/06/21 07/11/22 [place] [address] [address] [place] [address] Assigned Musculoskeletal Provider 10/15/21 04/26/23 Paula Reza MD [address] [facility] 200 [place] [address] Assigned PCP 10/22/21 12/23/21 Keerthi Miner APRN BRANCH LEAD [address] [place] [address] Assigned Heart and Vascular Provider 10/08/21 02/10/22 Shahida Sutton APRN BRANCH LEAD Assigned PCP 12/24/21 03/24/22 Porsha Michaels APRN BRANCH LEAD [address] [place] [address] Assigned Heart and Vascular Provider 02/11/22 05/12/22 Paula Reza MD [address] [place] [address] Assigned PCP 03/25/22 04/07/22 Shahida Sutton APRN BRANCH LEAD [address] [place] [address] Assigned PCP 04/08/22 06/30/22 Daylin Ludwig, EP [facility] [address] [place] [address] Cardiac Rehabilitation Therapist 05/16/23 Laurel Velasquez MD [address] [place] [address] Assigned Heart and Vascular Provider 05/13/22 06/30/22 Daylin Ludwig, MIKI [facility] [address] [place] [address] Cardiac Rehabilitation Therapist 06/08/22 06/09/23 Paula Reza MD [address] [place] [address] Assigned PCP 07/01/22 07/07/22 Porsha Michaels APRN BRANCH LEAD [address] [place] [address] Assigned Heart and Vascular Provider 07/01/22 07/07/22 Laurel Velasquez MD [address] [place] [address] Assigned Heart and Vascular Provider 07/08/22 08/04/22 Shahida Sutton APRN BRANCH LEAD Assigned PCP 07/08/22 09/08/22 Marilin Montaño, BRANCH LEAD [address] [facility] [place] [address] Assigned Heart and Vascular Provider 08/05/22 Esha Dewitt MD 420 [facility] 36 [place] [address] MD Gastroenterology 09/06/22 Heather Mosquera MD [address] [place], [place] [address] Internal Medicine 09/06/22 Paula Reza MD [address] [facility] 200 [place], [place] [address] Assigned PCP 09/09/22 01/05/23 Esha Dewitt MD [address] [address] Assigned Gastroenterology Provider 09/23/22 Valdo Escamilla PA-C [address] [facility] [address] [place] [address] Assigned Neuroscience Provider 09/30/22 Nohelia Abarca PA-C [address] [facility] [place] [address] Physician Wellhead Pumper Gastroenterology 10/03/22 Heather Mosquera MD [address] [place] [address] Assigned PCP 01/06/23 Fawad York MD 9 [place] [address] Assigned Musculoskeletal Provider 04/27/23 06/25/23 documented as of this encounter
--- OUTSIDE RECORDS SUMMARY | 2023-12-25 08:14 | XMS_ITS | Encounter Summary ---
Author Organization [place] Address [address] [place] [address] Care Team Providers Care Inverter And Clipper Name Role Phone HermanShahida APRN HOME HEALTH ASSISTANT Primary Care Provi ford Unavailable Shahida Sutton APRN HOME HEALTH ASSISTANT Unavailable Un available Carolynn Ramon RN Unavailable [phone] Anabela Barakat APRN HOME HEALTH ASSISTANT Unavailable Fawad York MD Unavailable [phone] Roopa Almonte MD Unavailable [phone] Augustine Callaway MD Unavailable Maryse Burton PA-C Unavailable [phone] Marquita Starkey MD Unavailable [phone] Roopa Almonte MD Unavailable [phone] Griffin Joshi MD Unavailable Rina Magallon RN Unavailable [phone] Paula Reza MD Primary Care Provider [phone] Griffin Joshi MD Unavailable Roopa Almonte MD Unavailable [phone] Basilio Morillo DO Unavailable Lydia Bernstein PA-C Unavailable Rosa Maria Love Unavailable Augustine Callaway MD Unavailable Paula Reza MD Unavailable Keerthi Miner APRN HOME HEALTH ASSISTANT Unavailable [phone] Herman, Shahida Cummings REGULATORY AFFAIRS COORDINATOR HOME HEALTH ASSISTANT Unavailable Un available Porsha Michaels APRN HOME HEALTH ASSISTANT Unavailable Paula Reza MD Unavailable Herman, Shahida Cummings APRN HOME HEALTH ASSISTANT Unavailable Un available Daylin Ludwig Unavailable Laurel Velasquez MD Unavailable Daylin Ludwig Unavailable Paula Reza MD Unavailable Porsha Michaels APRN HOME HEALTH ASSISTANT Unavailable Laurel Velasquez MD Unavailable Herman, Shahida Cummings APRN HOME HEALTH ASSISTANT Unavailable Un available Marilin Montaño HOME HEALTH ASSISTANT Unavailable Esha Dewitt MD Unavailable [phone] Heather Mosquera MD Unavailable Paula Reza MD Unavailable Esha Dewitt MD Unavailable [phone] Valdo Escamilla PA-C Unavailable Nohelia Abarca PA-C Unavailable [phone] Heather Mosquera MD Unavailable Fawad York MD Unavailable Encounter Details Date Type Department Care Team (Late st Contact Info) Description 12/21/2020 [facility]ice [address] [address] Monica Suarez Social History Tobacco [...] documented as of this encounter Care Teams Inverter And Clipper Relationship Specialty Start Date End Date Shahida Sutton APRN HOME HEALTH ASSISTANT PCP - General Nurse Practitioner 08/17/14 08/04/21 Paula Reza MD [address] [facility] 200 [place] [address] PCP - General Internal Medicine 08/05/21 Shahida Sutton APRN HOME HEALTH ASSISTANT Assigned PCP 07/12/14 09/30/21 Carolynn Ramon, KASIE Personal Advocate & Liaison (PAL) 12/17/18 08/07/21 Anabela Barakat APRN HOME HEALTH ASSISTANT [address] [place] [address] Assigned Heart and Vascular Provider 08/15/20 08/05/21 Fawad York MD [address] [place], [place] [address] Assigned Musculoskeletal Provider 12/05/20 02/05/21 Roopa Almonte MD [address] [place] [address] Endocrinology, Diabetes, and Metabolism 01/19/21 [place] [address] [facility] 300 [place] [address] Assigned Musculoskeletal Provider 02/06/21 09/16/21 Maryse Burton, PAAna MariaC [address] [place] [address] Physician Head Of Visual Merchandising Dermatology 04/14/21 Marquita Starkey MD [address] [place] [address] Internal Medicine 05/06/21 05/06/21 Roopa Almonte MD [address] [place] [address] Hospitalist Endocrinology, Diabetes, and Metabolism 05/30/21 Griffin Joshi MD [address] [facility] [address] [place] [address] Cardiovascular Disease 07/25/21 Rina Magallon, RN Lead Sausage Canner 07/29/21 07/11/22 Griffin Joshi MD [address] [place] [address] Assigned Heart and Vascular Provider 08/06/21 10/07/21 Roopa Almonte MD [address] [place] [address] 200 [place], [place] [address] Assigned Endocrinology Provider 09/10/21 [place] [address] [place] [address] Assigned Musculoskeletal Provider 09/17/21 10/14/21 Lydia Bernstein PA-C [address] [facility] 150 [place] [address] Assigned PCP 10/01/21 10/21/21 Rosa Maria Love CHW Community Health Worker 10/06/21 07/11/22 [place] [address] [facility] 300 [place] [address] Assigned Musculoskeletal Provider 10/15/21 04/26/23 Paula Reza MD [address] [facility] 200 [place], [place] [address] Assigned PCP 10/22/21 12/23/21 Keerthi Miner APRN HOME HEALTH ASSISTANT [address] [place] [address] Assigned Heart and Vascular Provider 10/08/21 02/10/22 Shahida Sutton APRN HOME HEALTH ASSISTANT Assigned PCP 12/24/21 03/24/22 Porsha Michaels APRN HOME HEALTH ASSISTANT [address] [place] [address] Assigned Heart and Vascular Provider 02/11/22 05/12/22 Paula Reza MD [address] [facility] 200 [place] [address] Assigned PCP 03/25/22 04/07/22 Shahida Sutton REGULATORY AFFAIRS COORDINATOR HOME HEALTH ASSISTANT [address] [place] [address] Assigned PCP 04/08/22 06/30/22 Daylin Ludwig, MIKI [facility] [address] [place] [address] Cardiac Rehabilitation Therapist 05/16/23 Laurel Velasquez MD [address] [place] [address] Assigned Heart and Vascular Provider 05/13/22 06/30/22 Daylin Ludwig, MIKI [facility] [address] [place] [address] Cardiac Rehabilitation Therapist 06/08/22 06/09/23 Paula Reza MD [address] [place] [address] Assigned PCP 07/01/22 07/07/22 Porsha Michaels APRN HOME HEALTH ASSISTANT [address] [place] [address] Assigned Heart and Vascular Provider 07/01/22 07/07/22 Laurel Velasquez MD [address] [place] [address] Assigned Heart and Vascular Provider 07/08/22 08/04/22 Shahida Sutton APRN HOME HEALTH ASSISTANT Assigned PCP 07/08/22 09/08/22 Marilin Montaño, HOME HEALTH ASSISTANT [address] [place] [address] Assigned Heart and Vascular Provider 08/05/22 Esha Dewitt MD [address] [place] [address] Gastroenterology 09/06/22 Heather Mosquera MD [address] [place] [address] Internal Medicine 09/06/22 Paula Reza MD [address] [place] [address] Assigned PCP 09/09/22 01/05/23 Esha Dewitt MD [address] [place] [address] Assigned Gastroenterology Provider 09/23/22 Valdo Escamilla PA-C 6[address] [facility] 103 [place] [address] Assigned Neuroscience Provider 09/30/22 Nohelia Abarca PA-C [address]50 [place] [address] Physician Head Of Visual Merchandising Gastroenterology 10/03/22 Heather Mosquera MD 6545 [facility] 150 [place] [address] Assigned PCP 01/06/23 Fawad York MD [address] [place] [address] Assigned Musculoskeletal Provider 04/27/23 06/25/23 documented as of this encounter
--- OUTSIDE RECORDS SUMMARY | 2023-12-25 08:15 | XMS_ITS | Encounter Summary ---
Author Organization [facility] Address [address] [place] [address] Care Team Providers Care Residential Living Assistant Name Role Phone HermanShahida huerta APRN MANAGER FOOD Primary Care Provi ford Unavailable Shahida Sutton APRN MANAGER FOOD Unavailable Un available Carolynn Ramon RN Unavailable Anabela Barakat APRN MANAGER FOOD Unavailable Nima France PA-C Unavailable [phone] Basilio Morillo DO Unavailable Fawad York MD Unavailable [phone] Roopa Almonte MD Unavailable Augustine Callaway MD Unavailable Maryse Burton PA-C Unavailable [phone] Marquita Starkey MD Unavailable Roopa Almonte MD Unavailable Griffin Joshi MD Unavailable Rina Magallon RN Unavailable Paula Reza MD Primary Care Provider [phone] Griffin Joshi MD Unavailable Roopa Almonte MD Unavailable Ilia Basilio Naik Unavailable Lydia Bernstein PA-C Unavailable Kate Rosa Maria CHW Unavailable Augustine Callaway MD Unavailable Paula Reza MD Unavailable Keerthi Miner APRN MANAGER FOOD Unavailable Herman, Shahida Cummings APRN MANAGER FOOD Unavailable Un available Porsha Michaels APRN MANAGER FOOD Unavailable [phone] Paula Reza MD Unavailable Herman, Shahida Cummings APRN MANAGER FOOD Unavailable Un available Daylin Ludwig Unavailable [phone] Laurel Velasquez MD Unavailable Daylin Ludwig Unavailable [phone] Paula Reza MD Unavailable Porsha Michaels APRN MANAGER FOOD Unavailable [phone] Laurel Velasquez MD Unavailable Herman, Shahida Cummings APRN MANAGER FOOD Unavailable Un available Marilin Montaño MANAGER FOOD Unavailable [phone] Esha Dewitt MD Unavailable [phone] Heather Mosquera MD Unavailable Paula Reza MD Unavailable Esha Dewitt MD Unavailable [phone] Valdo Escamilla PA-C Unavailable [phone] Nohelia Abarca PA-C Unavailable [phone] Heather Mosquera MD Unavailable Fawad York MD [facility] [phone] Encounter Details Date Type Department Care Team (Late st Contact Info) Description 09/28/2020 MyC Medical Advice [address] [phone] Carolynn Ramon, KASIE Social History Tobacco Use [...] documented as of this encounter Care Teams Residential Living Assistant Relationship Specialty Start Date End Date Shahida Sutton APRN MANAGER FOOD PCP - General Nurse Practitioner 08/17/14 08/04/21 Paula Reza MD [address] [facility] 200 [place] [address] PCP - General Internal Medicine 08/05/21 Shahida Sutton, VISITOR SERVICE ASSISTANT MANAGER FOOD Assigned PCP 07/12/14 09/30/21 Carolynn Ramon, KASIE Personal Advocate & Liaison (PAL) 12/17/18 08/07/21 Anabela Barakat, VISITOR SERVICE ASSISTANT MANAGER FOOD 1700 [place] [address] Assigned Heart and Vascular Provider 08/15/20 08/05/21 Nima France PA-C 6545 [facility] 450 [place] [address] Assigned Musculoskeletal Provider 08/22/20 11/13/20 [place] [address] [place] [address] Assigned Musculoskeletal Provider 11/14/20 12/04/20 Fawad York MD 9[address] [place], [place] [address]65 Assigned Musculoskeletal Provider 12/05/20 02/05/21 Roopa Almonte MD [address] [facility] 200 [place] [address] Endocrinology, Diabetes, and Metabolism 01/19/21 [place] [address] [facility] 300 [place] [address] Assigned Musculoskeletal Provider 02/06/21 09/16/21 Maryse Burton PA-C [address]200 [place] [address] Physician Shipper/Receiver Dermatology 04/14/21 Marquita Starkey MD [address] [facility] 200 [place] [address] Internal Medicine 05/06/21 05/06/21 Roopa Almonte MD [address] [facility] 200 [place] [address] Hospitalist Endocrinology, Diabetes, and Metabolism 05/30/21 Griffin Joshi MD [address] [place] [address] Cardiovascular Disease 07/25/21 Rina Magallon RN Lead Firer Diesel Locomotive 07/29/21 07/11/22 Griffin Joshi MD [address] [place] [address] Assigned Heart and Vascular Provider 08/06/21 10/07/21 Roopa Almonte MD [address] [facility] 200 [place], [place] [address]370 Assigned Endocrinology Provider 09/10/21 [place] [address] [facility] [place] [address] Assigned Musculoskeletal Provider 09/17/21 10/14/21 Lydia Bernstein PA-C [address] [place] [address] Assigned PCP 10/01/21 10/21/21 Klarissa Lovesay, W Community Health Worker 10/06/21 07/11/22 [place] [address] [place] [address] Assigned Musculoskeletal Provider 10/15/21 04/26/23 Paula Reza MD [address] 200 [place] [address] Assigned PCP 10/22/21 12/23/21 Keerthi Miner APRN MANAGER FOOD [address] [place] [address] Assigned Heart and Vascular Provider 10/08/21 02/10/22 Shahida Sutton APRN MANAGER FOOD Assigned PCP 12/24/21 03/24/22 Porsha Michaels APRN MANAGER FOOD [address] [place] [address] Assigned Heart and Vascular Provider 02/11/22 05/12/22 Paula Reza MD [address] 200 [place] [address] Assigned PCP 03/25/22 04/07/22 Shahida Sutton APRN MANAGER FOOD [address] [place] [address] Assigned PCP 04/08/22 06/30/22 Daylin Ludwig EP [facility] [address] [place] [address] Cardiac Rehabilitation Therapist 05/16/23 Laurel Velasquez MD [address] [place] 965105 Assigned Heart and Vascular Provider 05/13/22 06/30/22 Daylin Ludwig EP [facility] [address] [place] 167525 Cardiac Rehabilitation Therapist 06/08/22 06/09/23 Paula Reza MD [address] [facility] 200 [place], [place] [address] Assigned PCP 07/01/22 07/07/22 Porsha Michaels APRN MANAGER FOOD [address] [place] [address] Assigned Heart and Vascular Provider 07/01/22 07/07/22 Laurel Velasquez MD [address] [place] [address] Assigned Heart and Vascular Provider 07/08/22 08/04/22 Shahida Sutton, VISITOR SERVICE ASSISTANT MANAGER FOOD Assigned PCP 07/08/22 09/08/22 Marilin Montaño, MANAGER FOOD [address] [place] [address] Assigned Heart and Vascular Provider 08/05/22 Esha Dewitt MD [address] [place] [address] 36 [place], [place] [address] Gastroenterology 09/06/22 Heather Mosquera MD [address] [place] [id number] Internal Medicine 09/06/22 Paula Reza MD [address] 200 [place] [address] Assigned PCP 09/09/22 01/05/23 Esha Dewitt MD [address] [facility] 36 [place], [place] [address] Assigned Gastroenterology Provider 09/23/22 Valdo Escamilla PA-C [address] [facility] [address] [place], [place] [address] Assigned Neuroscience Provider 09/30/22 Nohelia Abarca PA-C 2450 [place], [place] [address] Physician Shipper/Receiver Gastroenterology 10/03/22 Heather Mosquera MD [address] [place] [id number] Assigned PCP 01/06/23 Fawad York MD [address] [place], [place] [address] Assigned Musculoskeletal Provider 04/27/23 06/25/23 documented as of this encounter
--- OUTSIDE RECORDS SUMMARY | 2023-12-25 08:15 | XMS_ITS | Encounter Summary ---
Author Organization [facility] Address [address] [place] [address] Care Team Providers Care Heating And Refrigeration Inspector Name Role Phone Shahida Sutton APRN HOG HANDLER Primary Care Provi ford Unavailable Shahida Sutton APRN HOG HANDLER Unavailable Un available Carolynn Ramon RN Unavailable Augustine Callaway MD Unavailable Brady Lion MD Unavailable Un available Nima France-C Unavailable Camille Chandler PA-C Unavailable [phone] Anabela Barakat APRN HOG HANDLER Unavailable Nima France PA-C Unavailable Basilio Morillo DO Unavailable Fawad York MD Unavailable [phone] Roopa Almonte MD Unavailable Augustine Callaway MD Unavailable Maryse Burton PA-C Unavailable Marquita Starkey MD Unavailable Roopa Almonte MD Unavailable Griffin Joshi MD Unavailable Rina Magallon RN Unavailable [phone] Paula Reza MD Primary Care Provider [phone] Griffin Joshi MD Unavailable Roopa Almonte MD Unavailable [phone] Basilio Morillo DO Unavailable Lydia Bernstein-C Unavailable Rosa Maria Love Unavailable [phone] Augustine Callaway MD Unavailable Paula Reza MD Unavailable Keerthi Miner APRN HOG HANDLER Unavailable [phone] Herman, Shahida Cummings APRN HOG HANDLER Unavailable Un available Porsha Michaels APRN HOG HANDLER Unavailable [phone] Paula Reza MD Unavailable Shahida Sutton APRN HOG HANDLER Unavailable Un available Daylin Ludwig Unavailable [phone] Laurel Velasquez MD Unavailable [phone] Daylin Ludwig Unavailable [phone] Paula Reza MD Unavailable Porsha Michaels APRN HOG HANDLER Unavailable [phone] Laurel Velasquez MD Unavailable [phone] Shahida Sutton EXEC. CREATIVE DIRECTOR HOG HANDLER Unavailable Un available Marilin Montaño HOG HANDLER Unavailable [phone] Esha Dewitt MD Unavailable [phone] EvelineHeather MD Unavailable [phone] Paula Reza MD Unavailable Esha Dewitt MD Unavailable [phone] Valdo Escamilla PA-C Unavailable [phone] Nohelia Abarca PA-C Unavailable [phone] Heather Mosquera MD Unavailable Fawad York MD Unavailable [phone] Encounter Details Date Type Department Care Team (Late st Contact Info) Description 02/10/2020 [facility] [address] [place] [phone] Rina Winkler RN Social History Tobacco Use [...] COVID-19? No / Unsure 02/06/2020 8:12 AM RUBBER CALENDER HELPER documented as of this encounter Plan of Treatment Not on file documented as of this encounter Visit Diagnoses Not on filedocumented in this encounter Additional Health Concerns Infection Onset Date Last Indicated Resolved Time Rule Out COVID-19 02/15/2020 02/15/2020 02/16/2020 2:32 PM RUBBER CALENDER HELPER Rule Out COVID-19 01/05/2021 01/05/2021 01/06/2021 12:57 PM CDT ESBL 01/05/2021 01/05/2021 Rule Out COVID-19 06/30/2021 06/30/2021 07/01/2021 9:34 AM CDT Rule Out COVID-19 07/25/2021 07/25/2021 07/25/2021 8:02 PM CDT Assessment Noted Time PHQ-9 Depression Total Score: 7 08/13/19 20 1:22 PM CDT documented as of this encounter Care Teams Heating And Refrigeration Inspector Relationship Specialty Start Date End Date Shahida Sutton APRN HOG HANDLER PCP - General Nurse Practitioner 08/17/14 08/04/21 Paula Reza MD [address] [facility] 200 [place] [address] PCP - General Internal Medicine 08/05/21 Shahida Sutton APRN HOG HANDLER Assigned PCP 07/12/14 09/30/21 Carolynn Ramon RN Personal Advocate & Liaison (PAL) 12/17/18 08/07/21 [place] [address] [place] [address] Assigned Musculoskeletal Provider 12/26/19 08/21/20 Brady Lion MD Assigned Heart and Vascular Provider 12/26/19 08/14/20 Nima France PA-C [address] [place] [address] Assigned Surgical Provider 05/19/20 08/21/20 Camille Chandler PA-C [address] [place] [address] Assigned Neuroscience Provider 05/19/20 09/14/20 Anabela Barakat APRN HOG HANDLER 1700 [place] [address] Assigned Heart and Vascular Provider 08/15/20 08/05/21 Nima France PA-C [address] [facility] 450 [place] [address] Assigned Musculoskeletal Provider 08/22/20 11/13/20 [place] [address] [facility] [place], [place] [address] Assigned Musculoskeletal Provider 11/14/20 12/04/20 Fawad York MD 9[address] [place], [place] [address] Assigned Musculoskeletal Provider 12/05/20 02/05/21 Roopa Almonte MD [address] [facility] 200 [place] [address] Endocrinology, Diabetes, and Metabolism 01/19/21 [place] [address] [facility] 300 [place] [address] Assigned Musculoskeletal Provider 02/06/21 09/16/21 Maryse Burton PA-C 5200 [place] [address] Physician Comparative Sociology Professor Dermatology 04/14/21 Marquita Starkey MD [address] [facility] 200 [place], [place] [address] Internal Medicine 05/06/21 05/06/21 Roopa Almonte MD [address] [facility] 200 [place], [place] [address] Hospitalist Endocrinology, Diabetes, and Metabolism 05/30/21 Griffin Joshi MD [address] [email or web address] [address] [place] [address] Cardiovascular Disease 07/25/21 Rina Magallon, RN Lead Suede Brusher 07/29/21 07/11/22 Griffin Joshi MD [address] [place] [address] Assigned Heart and Vascular Provider 08/06/21 10/07/21 Roopa Almonte MD [address] [facility] 200 [place] [address] Assigned Endocrinology Provider 09/10/21 [place] [address] [facility] [place] [address] Assigned Musculoskeletal Provider 09/17/21 10/14/21 Lydia Bernstein PA-C [address] [email or web address] 150 [place] [address] Assigned PCP 10/01/21 10/21/21 Rosa Maria Love CHW Community Health Worker 10/06/21 07/11/22 [place] [address] [address] [facility] [[email or web address] 300 [place] [address] Assigned Musculoskeletal Provider 10/15/21 04/26/23 Paula Reza MD [address] [place] [address] Assigned PCP 10/22/21 12/23/21 Keerthi Miner APRN HOG HANDLER [address] [place] [address] Assigned Heart and Vascular Provider 10/08/21 02/10/22 Shahida Sutton APRN HOG HANDLER Assigned PCP 12/24/21 03/24/22 Porsha Michaels APRN HOG HANDLER [address] [place] [address] Assigned Heart and Vascular Provider 02/11/22 05/12/22 Paula Reza MD [address] [place] [address] Assigned PCP 03/25/22 04/07/22 Shahida Sutton APRN HOG HANDLER [address] [place] [address] Assigned PCP 04/08/22 06/30/22 Daylin Ludwig, EP [facility] [address] [place] [address] Cardiac Rehabilitation Therapist 05/16/23 Laurel Velasquez MD [address] [place] [address] Assigned Heart and Vascular Provider 05/13/22 06/30/22 Daylin Ludwig, EP [facility] [address] [place] [address] Cardiac Rehabilitation Therapist 06/08/22 06/09/23 Paula Reza MD [address] [place], [place] [address] Assigned PCP 07/01/22 07/07/22 Porsha Michaels APRN HOG HANDLER [address] [place] [address] Assigned Heart and Vascular Provider 07/01/22 07/07/22 Laurel Velasquez MD [address] [place] [address] Assigned Heart and Vascular Provider 07/08/22 08/04/22 Shahida Sutton APRN HOG HANDLER Assigned PCP 07/08/22 09/08/22 Marilin Montaño, HOG HANDLER [address] [place] [address] Assigned Heart and Vascular Provider 08/05/22 Esha Dewitt MD [address] [place] [address] Gastroenterology 09/06/22 Heather Mosquera MD [address] [place] [address] Internal Medicine 09/06/22 Paula Reza MD [address] 200 [place] [address] Assigned PCP 09/09/22 01/05/23 Esha Dewitt MD 420 [facility] 36 [place], [place] [address] Assigned Gastroenterology Provider 09/23/22 Valdo Escamilla PA-C [address] [place] [address] Assigned Neuroscience Provider 09/30/22 Nohelia Abarca PA-C [address] [place] [address] Physician Comparative Sociology Professor Gastroenterology 10/03/22 Heather Mosquera MD [address] [place] [address] Assigned PCP 01/06/23 Fawad York MD 909 [place], [place] [address] Assigned Musculoskeletal Provider 04/27/23 06/25/23 documented as of this encounter
--- OUTSIDE RECORDS SUMMARY | 2023-12-25 08:15 | XMS_ITS | Encounter Summary ---
Author Organization [facility] Address [address] [place] [address] Care Team Providers Care Yard Truck Driver Name Role Phone Shahida Sutton APRN MID LEVEL CLINICIAN Primary Care Provi ford Unavailable Shahida Sutton APRN MID LEVEL CLINICIAN Unavailable Un available Carolynn Ramon RN Unavailable [phone] Augustine Callaway MD Unavailable Brady Lion MD Unavailable Un available Nima France-C Unavailable Camille Chandler PA-C Unavailable [phone] Anabela Barakat APRN MID LEVEL CLINICIAN Unavailable Nima France PA-C Unavailable Basilio Morillo DO Unavailable [phone] Fawad York MD Unavailable [phone] Roopa Almonte MD Unavailable Augustine Callaway MD Unavailable Maryse Burton PA-C Unavailable [phone] Marquita Starkey MD Unavailable Roopa Almonte MD Unavailable Griffin Joshi MD Unavailable Rina Magallon RN Unavailable [phone] Paula Reza MD Primary Care Provider [phone] Griffin Joshi MD Unavailable Roopa Almonte MD Unavailable [phone] Basilio Morillo DO Unavailable Lydia Bernstein-C Unavailable Rosa Maria Love Unavailable [phone] Augustine Callaway MD Unavailable Paula Reza MD Unavailable Keerthi Miner APRN MID LEVEL CLINICIAN Unavailable [phone] Herman, Shahida Cummings APRN MID LEVEL CLINICIAN Unavailable Un available Porsha Michaels APRN MID LEVEL CLINICIAN Unavailable [phone] Paula Reza MD Unavailable Shahida Sutton APRN MID LEVEL CLINICIAN Unavailable Un available Daylin Ludwig Unavailable [phone] Laurel Velasquez MD Unavailable [phone] Daylin Ludwig Unavailable [phone] Paula Reza MD Unavailable Porsha Michaels APRN MID LEVEL CLINICIAN Unavailable [phone] Laurel Velasquez MD Unavailable [phone] Shahida Sutton MANAGER SCIENTIFIC MID LEVEL CLINICIAN Unavailable Un available Marilin Montaño MID LEVEL CLINICIAN Unavailable [phone] Esha Dewitt MD Unavailable [phone] EvelineHeather MD Unavailable [phone] Paula Reza MD Unavailable Esha Dewitt MD Unavailable [phone] Valdo Escamlila PA-C Unavailable Nohelia Abarca PA-C Unavailable [phone] Heather Mosquera MD Unavailable [phone] Fawad York MD Unavailable Encounter Details Date Type Department Care Team (Late st Contact Info) Description 02/05/2020 Documentation Only [address] [phone] Shahida Sutton APRN MID LEVEL CLINICIAN Social History Tobacco Use Types Packs/Day Years [...] COVID-19? No / Unsure 02/06/2020 8:12 AM LOZENGE DOUGH MIXER documented as of this encounter Plan of Treatment Not on file documented as of this encounter Visit Diagnoses Not on filedocumented in this encounter Additional Health Concerns Infection Onset Date Last Indicated Resolved Time Rule Out COVID-19 02/15/2020 02/15/2020 02/16/2020 2:32 PM LOZENGE DOUGH MIXER Rule Out COVID-19 01/05/2021 01/05/2021 01/06/2021 12:57 PM CDT ESBL 01/05/2021 01/05/2021 Rule Out COVID-19 06/30/2021 06/30/2021 07/01/2021 9:34 AM CDT Rule Out COVID-19 07/25/2021 07/25/2021 07/25/2021 8:02 PM CDT Assessment Noted Time PHQ-9 Depression Total Score: 7 08/13/19 20 1:22 PM CDT documented as of this encounter Care Teams Yard Truck Driver Relationship Specialty Start Date End Date Shahida Sutton APRN MID LEVEL CLINICIAN PCP - General Nurse Practitioner 08/17/14 08/04/21 Paula Reza MD [address] [facility] 200 [place] [address] PCP - General Internal Medicine 08/05/21 Shahida Sutton APRN MID LEVEL CLINICIAN Assigned PCP 07/12/14 09/30/21 Carolynn Ramon RN Personal Advocate & Liaison (PAL) 12/17/18 08/07/21 [place] [address] [place] [address] Assigned Musculoskeletal Provider 12/26/19 08/21/20 Brady Lion MD Assigned Heart and Vascular Provider 12/26/19 08/14/20 Nima France PA-C [address] [place] [address] Assigned Surgical Provider 05/19/20 08/21/20 Camille Chandler PA-C [address] [place] [id number] Assigned Neuroscience Provider 05/19/20 09/14/20 Anabela Barakat APRN MID LEVEL CLINICIAN 1700 [place] [address] Assigned Heart and Vascular Provider 08/15/20 08/05/21 Nima France PA-C [address] [facility] 450 [place] [address] Assigned Musculoskeletal Provider 08/22/20 11/13/20 [place] [address] [place] [address] Assigned Musculoskeletal Provider 11/14/20 12/04/20 Fawad York MD 9 [place], [place] [address] Assigned Musculoskeletal Provider 12/05/20 02/05/21 Roopa Almonte MD [address] [facility] 200 [place] [address] Endocrinology, Diabetes, and Metabolism 01/19/21 [place] [address] [facility] 300 [place] [address] Assigned Musculoskeletal Provider 02/06/21 09/16/21 Maryse Burton PA-C 5200 [place] [address] Physician Supervisor Painting Department Dermatology 04/14/21 Marquita Starkey MD [address] [facility] 200 [place], [place] [address] Internal Medicine 05/06/21 05/06/21 Roopa Almonte MD [address] [facility] 200 [place], [place] [address] Hospitalist Endocrinology, Diabetes, and Metabolism 05/30/21 Griffin Joshi MD [address] [facility] [address] [place] [address] Cardiovascular Disease 07/25/21 Rina Magallon, RN Lead Gunstock Spray Unit Adjuster 07/29/21 07/11/22 Griffin Joshi MD [address] [place] [address] Assigned Heart and Vascular Provider 08/06/21 10/07/21 Roopa Almonte MD [address] [facility] 200 [place], [place] [address] Assigned Endocrinology Provider 09/10/21 [place] [address] [facility] [place] [address] Assigned Musculoskeletal Provider 09/17/21 10/14/21 Lydia Bernstein PA-C [address] [facility] 150 [place] [address] Assigned PCP 10/01/21 10/21/21 Rosa Maria Love CHW Community Health Worker 10/06/21 07/11/22 [place] [address] [place] [address] Assigned Musculoskeletal Provider 10/15/21 04/26/23 Paula Reza MD [address] [place] [address] Assigned PCP 10/22/21 12/23/21 Keerthi Miner APRN MID LEVEL CLINICIAN [address] [place] [address] Assigned Heart and Vascular Provider 10/08/21 02/10/22 Shahida Sutton APRN MID LEVEL CLINICIAN Assigned PCP 12/24/21 03/24/22 Porsha Michaels APRN MID LEVEL CLINICIAN [address] [address] Assigned Heart and Vascular Provider 02/11/22 05/12/22 Paula Reza MD [address] [place] [address] Assigned PCP 03/25/22 04/07/22 Shahida Sutton APRN MID LEVEL CLINICIAN [address] [address] Assigned PCP 04/08/22 06/30/22 Daylin Ludwig, EP [facility] [address] [address] Cardiac Rehabilitation Therapist 05/16/23 Laurel Velasquez MD [address] [address] Assigned Heart and Vascular Provider 05/13/22 06/30/22 Daylin Ludwig, EP [facility] [address] [address] Cardiac Rehabilitation Therapist 06/08/22 06/09/23 Paula Reza MD [address] [place], [place] [address] Assigned PCP 07/01/22 07/07/22 Porsha Michaels APRN MID LEVEL CLINICIAN [address] [place] [address] Assigned Heart and Vascular Provider 07/01/22 07/07/22 Laurel Velasquez MD [address] [place] [address] Assigned Heart and Vascular Provider 07/08/22 08/04/22 Shahida Sutton APRN MID LEVEL CLINICIAN Assigned PCP 07/08/22 09/08/22 Marilin Montaño, MID LEVEL CLINICIAN [address] [place] [address] Assigned Heart and Vascular Provider 08/05/22 Esha Dewitt MD [address] [place] [address] 36 [place], [place] [address] Gastroenterology 09/06/22 Heather Mosquera MD [address] [place] [address] Internal Medicine 09/06/22 Paula Reza MD [address] 200 [place] [address] Assigned PCP 09/09/22 01/05/23 Esha Dewitt MD 420 [facility] 36 [place], [place] [address] Assigned Gastroenterology Provider 09/23/22 Valdo Escamilla PA-C [address] [facility] [address] [place] [address] Assigned Neuroscience Provider 09/30/22 Nohelia Abarca PA-C [address] [place] [address] Physician Supervisor Painting Department Gastroenterology 10/03/22 Heather Mosquera MD [address] [place] [address] Assigned PCP 01/06/23 Fawad York MD 909 [place], [place] [address] Assigned Musculoskeletal Provider 04/27/23 06/25/23 documented as of this encounter
--- OUTSIDE RECORDS SUMMARY | 2023-12-25 08:15 | XMS_ITS | Encounter Summary ---
Author Organization [facility] Address [address] [place] [address] Care Team Providers Care Tourist Escort Name Role Phone Shahida Sutton APRN ASSOCIATE PROFESSOR OF AUTOMATION Primary Care Provi ford Unavailable Shahida Sutton APRN ASSOCIATE PROFESSOR OF AUTOMATION Unavailable Un available Carolynn Ramon RN Unavailable [phone] Augustine Callaway MD Unavailable Brady Lion MD Unavailable Un available Nima France-C Unavailable Camille Chandler PA-C Unavailable [phone] Anabela Barakat APRN ASSOCIATE PROFESSOR OF AUTOMATION Unavailable Nima France PA-C Unavailable Basilio Morillo DO Unavailable Fawad York MD Unavailable Roopa Almonte MD Unavailable Augustine Callaway MD Unavailable Maryse Burton PA-C Unavailable Marquita Starkey MD Unavailable Roopa Almonte MD Unavailable Griffin Joshi MD Unavailable Rina Magallon RN Unavailable [phone] Paula Reza MD Primary Care Provider [phone] Griffin Joshi MD Unavailable Roopa Almonte MD Unavailable [phone] Basilio Morillo DO Unavailable Lydia Bernstein-C Unavailable Rosa Maria Love Unavailable [phone] Augustine Callaway MD Unavailable Paula Reza MD Unavailable Keerthi Miner APRN ASSOCIATE PROFESSOR OF AUTOMATION Unavailable [phone] Herman, Shahida Cummings APRN ASSOCIATE PROFESSOR OF AUTOMATION Unavailable Un available Porsha Michaels APRN ASSOCIATE PROFESSOR OF AUTOMATION Unavailable [phone] Paula Reza MD Unavailable Shahida Sutton APRN ASSOCIATE PROFESSOR OF AUTOMATION Unavailable Un available Daylin Ludwig Unavailable [phone] Laurel Velasquez MD Unavailable [phone] Daylin Ludwig Unavailable [phone] Paula Reza MD Unavailable Porsha Michaels APRN ASSOCIATE PROFESSOR OF AUTOMATION Unavailable [phone] Laurel Velasquez MD Unavailable [phone] Shahida Sutton QUALITY CONTROL ASSOCIATE ASSOCIATE PROFESSOR OF AUTOMATION Unavailable Un available Marilin Montaño ASSOCIATE PROFESSOR OF AUTOMATION Unavailable [phone] Esha Dewitt MD Unavailable [phone] EvelineHeather MD Unavailable [phone] Paula Reza MD Unavailable Esha Dewitt MD Unavailable [phone] Andi Valdo Desouza PA-C Unavailable Nohelia Abarca PA-C Unavailable [phone] Heather Mosquera MD Unavailable [phone] Fawad York MD Unavailable [phone] Reason for Visit * Reason Onset Date Comments Appointment 02/11/2020 Encounter Details Date Type Department Care Team (Late st Contact Info) Description 02/11/[address] [address] Shahida Sutton APRN ASSOCIATE PROFESSOR OF AUTOMATION Appointment Social History Tobacco Use Types Packs/Day [...] COVID-19? No / Unsure 02/06/2020 8:12 AM PROOF CARRIER documented as of this encounter Miscellaneous Notes * Telephone Encounter - Carolynn Ramon RN - 02/11/2020 12:18 PM PROOF CARRIER Shahida Sutton APRN ASSOCIATE PROFESSOR OF AUTOMATION FYI - Patient is concerned with his overall mental and physical health Patient is having diarrhea, migraines, pain issues that are ongoing Patient states that due to his mental state yesterday he gave himself an increased dose of insulin on accident - went to the ER (viewable in epic) per ER notes glucose was elevated at each check 256,279, 275, 277,228 (per review nurse) Patient states that he thinks he needs to take a leave of absence from work. RN scheduled appt with pcp in clinic Next 5 appointments (look out 90 days) Feb 13, 2020 8:15 AM Return Visit with Brady Lion MD [facility] ([facility]) [address] [facility] 140 [facility] [phone] Feb 19, 2020 2:00 PM (Arrive by 1:40 PM) Office Visit with Shahida Sutton APRN CNP [facility] ([facility]) [address] [place] [phone] Carolynn Ramon, Registered Nurse, PAL (Patient Advocate Liason) [facility] [phone] F CARRIER * Telephone Encounter - Rachel Lozada - [...] detailed message:No at Home number on file [phone] (home) Rachel Lozada-Patient Rep F CARRIER documented in this encounter Plan of Treatment Not on file documented as of this encounter Visit Diagnoses Not on filedocumented in this encounter Additional Health Concerns Infection Onset Date Last Indicated Resolved Time Rule Out COVID-19 02/15/2020 02/15/2020 02/16/2020 2:32 PM PROOF CARRIER Rule Out COVID-19 01/05/2021 01/05/2021 01/06/2021 12:57 PM CDT ESBL 01/05/2021 01/05/2021 Rule Out COVID-19 06/30/2021 06/30/2021 07/01/2021 9:34 AM CDT Rule Out COVID-19 07/25/2021 07/25/2021 07/25/2021 8:02 PM CDT Assessment Noted Time PHQ-9 Depression Total Score: 7 08/13/19 20 1:22 PM CDT documented as of this encounter Care Teams Tourist Escort Relationship Specialty Start Date End Date Shahida Sutton APRN ASSOCIATE PROFESSOR OF AUTOMATION PCP - General Nurse Practitioner 08/17/14 08/04/21 Paula Reza MD [address] [place] [address] PCP - General Internal Medicine 08/05/21 Shahida Sutton APRN ASSOCIATE PROFESSOR OF AUTOMATION Assigned PCP 07/12/14 09/30/21 Carolynn Ramon RN Personal Advocate & Liaison (PAL) 12/17/18 08/07/21 [place] [address] [place] [address] Assigned Musculoskeletal Provider 12/26/19 08/21/20 Brady Lion MD Assigned Heart and Vascular Provider 12/26/19 08/14/20 Nima France PA-C [address] [place] [address] Assigned Surgical Provider 05/19/20 08/21/20 Camille Chandler PA-C [address] [place] [address] Assigned Neuroscience Provider 05/19/20 09/14/20 Anabela Barakat APRN ASSOCIATE PROFESSOR OF AUTOMATION [address] [place] [address] Assigned Heart and Vascular Provider 08/15/20 08/05/21 Nima France PA-C [address] [facility] 450 [place] [address] Assigned Musculoskeletal Provider 08/22/20 11/13/20 [place] [address] [place] [address] Assigned Musculoskeletal Provider 11/14/20 12/04/20 Fawad York MD [address] [place] [address] Assigned Musculoskeletal Provider 12/05/20 02/05/21 Roopa Almonte MD [address] [facility] 200 [place] [address] Endocrinology, Diabetes, and Metabolism 01/19/21 [place] [address] [facility] 300 [place] [address] Assigned Musculoskeletal Provider 02/06/21 09/16/21 Maryse Burton PA-C [address] [place] [address] Physician Toxics Program Officer Dermatology 04/14/21 Marquita Starkey MD [address] [facility] 200 [place], [place] [address] Internal Medicine 05/06/21 05/06/21 Roopa Almonte MD [address] [facility] 200 [place] [address] Hospitalist Endocrinology, Diabetes, and Metabolism 05/30/21 Griffin Joshi MD [address] [place] [id number] Cardiovascular Disease 07/25/21 Rina Magallon, RN Lead Enrollment Management Vice President 07/29/21 07/11/22 Griffin Joshi MD [address] [place] [address] Assigned Heart and Vascular Provider 08/06/21 10/07/21 Roopa Almonte MD [address] [facility] 200 [place], [place] [address] Assigned Endocrinology Provider 09/10/21 [place] [address] [facility] [place] [address] Assigned Musculoskeletal Provider 09/17/21 10/14/21 Lydia Bernstein PA-C [address] [place] [address] Assigned PCP 10/01/21 10/21/21 Rosa Maria Love CHW Community Health Worker 10/06/21 07/11/22 [place] [address] [place] [address] Assigned Musculoskeletal Provider 10/15/21 04/26/23 Paula Reza MD [address] [place] [address] Assigned PCP 10/22/21 12/23/21 Keerthi Miner APRN ASSOCIATE PROFESSOR OF AUTOMATION [address] [place] [address] Assigned Heart and Vascular Provider 10/08/21 02/10/22 Shahida Sutton APRN ASSOCIATE PROFESSOR OF AUTOMATION Assigned PCP 12/24/21 03/24/22 Porsha Michaels APRN ASSOCIATE PROFESSOR OF AUTOMATION [address] [place] [address] Assigned Heart and Vascular Provider 02/11/22 05/12/22 Paula Reza MD [address] [place] [address] Assigned PCP 03/25/22 04/07/22 Shahida Sutton APRN ASSOCIATE PROFESSOR OF AUTOMATION [address] [place] [address] Assigned PCP 04/08/22 06/30/22 Daylin Ludwig EP [facility] [address] [place] [address] Cardiac Rehabilitation Therapist 05/16/23 Laurel Velasquez MD [address] [place] [address] Assigned Heart and Vascular Provider 05/13/22 06/30/22 Daylin Ludwig EP [facility] [address] [place] [id number] Cardiac Rehabilitation Therapist 06/08/22 06/09/23 Paula Reza MD [address] [facility] 200 [place], [place] [address] Assigned PCP 07/01/22 07/07/22 Porsha Michaels APRN ASSOCIATE PROFESSOR OF AUTOMATION [address] [place] [address] Assigned Heart and Vascular Provider 07/01/22 07/07/22 Laurel Velasquez MD [address] [place] [address] Assigned Heart and Vascular Provider 07/08/22 08/04/22 Shahida Sutton APRN ASSOCIATE PROFESSOR OF AUTOMATION Assigned PCP 07/08/22 09/08/22 Marilin Montaño, ASSOCIATE PROFESSOR OF AUTOMATION [address] [place] [address] Assigned Heart and Vascular Provider 08/05/22 Esha Dewitt MD [address] [place] [address] 36 [place], [place] [address] Gastroenterology 09/06/22 Heather Mosquera MD [address] [place] [address] Internal Medicine 09/06/22 Paula Reza MD [address] [place] [address] Assigned PCP 09/09/22 01/05/23 Esha Dewitt MD [address] [facility] 36 [place], [place] [address] Assigned Gastroenterology Provider 09/23/22 Valdo Escamilla PA-C [address] [facility] [address] [place], [place] [address] Assigned Neuroscience Provider 09/30/22 Nohelia Abarca PA-C [address] [place], [place] [address] Physician Toxics Program Officer Gastroenterology 10/03/22 Heather Mosquera MD [address] [place], [place] [address] Assigned PCP 01/06/23 Fawad York MD [address] [place], [place] [address] Assigned Musculoskeletal Provider 04/27/23 06/25/23 documented as of this encounter
--- OUTSIDE RECORDS SUMMARY | 2023-12-25 08:15 | XMS_ITS | Encounter Summary ---
Author Organization [facility] Address [address] [place] [address] Care Team Providers Care Archivist Political History Name Role Phone HermanShahida APRN HEAD OF COMMISSION DEPARTMENT Primary Care Provi ford Unavailable Shahida Sutton APRN HEAD OF COMMISSION DEPARTMENT Unavailable Un available Carolynn Ramon RN Unavailable [phone] Anabela Barakat APRN HEAD OF COMMISSION DEPARTMENT Unavailable Basilio Morillo DO Unavailable [phone] Fawad York MD Unavailable [phone] Roopa Almonte MD Unavailable [phone] Augustine Callaway MD Unavailable Maryse Burton PA-C Unavailable [phone] Marquita Starkey MD Unavailable [phone] Roopa Almonte MD Unavailable [phone] Griffin Joshi MD Unavailable Rina Magallon RN Unavailable [phone] Paula Reza MD Primary Care Provider [phone] Griffin Joshi MD Unavailable Roopa Almonte MD Unavailable [phone] IliaBasilio DO Unavailable Lydia Bernstein PA-C Unavailable KateRosa Maria RACHELL Unavailable [phone] Augustine Callaway MD Unavailable Paula Reza MD Unavailable Keerthi Miner APRN HEAD OF COMMISSION DEPARTMENT Unavailable [phone] Herman, Shahida Cummings APRN HEAD OF COMMISSION DEPARTMENT Unavailable Un available Porsha Michaels APRN HEAD OF COMMISSION DEPARTMENT Unavailable [phone] Paula Reza MD Unavailable Herman, Shahida Cummings APRN HEAD OF COMMISSION DEPARTMENT Unavailable Un available Daylin Ludwig Unavailable [phone] Laurel Velasquez MD Unavailable [phone] FiDaylin sullivan EP Unavailable [phone] Paula Reza MD Unavailable Porsha Michaels APRN HEAD OF COMMISSION DEPARTMENT Unavailable [phone] Laurel Velasquez MD Unavailable Herman, Shahida Cummings APRN HEAD OF COMMISSION DEPARTMENT Unavailable Un available Marilin Montaño HEAD OF COMMISSION DEPARTMENT Unavailable [phone] Esha Dewitt MD Unavailable [phone] Heather Mosquera MD Unavailable [phone] Paula Reza MD Unavailable Esha Dewitt MD Unavailable [phone] Valdo Escamilla PA-C Unavailable [phone] Nohelia Abarca-C Unavailable [phone] Heather Mosquera MD Unavailable [phone] Fawad York MD Unavailable Reason for Visit * Reason Comments Medication Refill Encounter Details Date Type Department Care Team (Late st Contact Info) Description 11/17/[address] [address] Shahida Sutton APRN HEAD OF COMMISSION DEPARTMENT Medication Refill Social History Tobacco Use Types [...] documented as of this encounter Care Teams Archivist Political History Relationship Specialty Start Date End Date Shahida Sutton APRN HEAD OF COMMISSION DEPARTMENT PCP - General Nurse Practitioner 08/17/14 08/04/21 Paula Reza MD [address] [place] [address] PCP - General Internal Medicine 08/05/21 Shahida Sutton APRN HEAD OF COMMISSION DEPARTMENT Assigned PCP 07/12/14 09/30/21 Carolynn Ramon RN Personal Advocate & Liaison (PAL) 12/17/18 08/07/21 Anabela Barakat APRN HEAD OF COMMISSION DEPARTMENT 17[address] [place] [address] Assigned Heart and Vascular Provider 08/15/20 08/05/21 [place] [address] [place] [address] Assigned Musculoskeletal Provider 11/14/20 12/04/20 Fawad York MD [address] [place] [address] Assigned Musculoskeletal Provider 12/05/20 02/05/21 Roopa Almonte MD [address] [place] [address] Endocrinology, Diabetes, and Metabolism 01/19/21 [place] [address] [place], [place] [address] Assigned Musculoskeletal Provider 02/06/21 09/16/21 Maryse Burton PA-C [address] [place] [address] Physician Supervisor Coil Winding Dermatology 04/14/21 Marquita Starkey MD [address] [facility] 200 [place] [address] Internal Medicine 05/06/21 05/06/21 Roopa Almonte MD [address] [facility] 200 [place] [address] Hospitalist Endocrinology, Diabetes, and Metabolism 05/30/21 Griffin Joshi MD [address] [facility] [address] [place] [address] Cardiovascular Disease 07/25/21 Rina Magallon, RN Lead Ham Boner 07/29/21 07/11/22 Griffin Joshi MD [address] [facility] [address] [place] [address] Assigned Heart and Vascular Provider 08/06/21 10/07/21 Roopa Almonte MD [address] [place], [place] [address] Assigned Endocrinology Provider 09/10/21 [place] [address] [employer] [facility] [place] [address] Assigned Musculoskeletal Provider 09/17/21 10/14/21 Lydia Bernstein PA-C [address] [place] [address] Assigned PCP 10/01/21 10/21/21 Rosa Maria Love CHW Community Health Worker 10/06/21 07/11/22 [place] [address] [place] [address] Assigned Musculoskeletal Provider 10/15/21 04/26/23 Paula Reza MD [address] [place] [address] Assigned PCP 10/22/21 12/23/21 Keerthi Miner APRN HEAD OF COMMISSION DEPARTMENT [address] [place] [address] Assigned Heart and Vascular Provider 10/08/21 02/10/22 Shahida Sutton APRN HEAD OF COMMISSION DEPARTMENT Assigned PCP 12/24/21 03/24/22 Porsha Michaels APRN HEAD OF COMMISSION DEPARTMENT [address] [place] [address] Assigned Heart and Vascular Provider 02/11/22 05/12/22 Paula Reza MD [address] [place] [address] Assigned PCP 03/25/22 04/07/22 Shahida Sutton APRN HEAD OF COMMISSION DEPARTMENT [address] [place] [address] Assigned PCP 04/08/22 06/30/22 Daylin Ludwig, EP [facility] [address] [place] [address] Cardiac Rehabilitation Therapist 05/16/23 Laurel Velasquez MD [address] [place] [address] Assigned Heart and Vascular Provider 05/13/22 06/30/22 Daylin Ludwig, MIKI [facility] [address] [place] [address] Cardiac Rehabilitation Therapist 06/08/22 06/09/23 Paula Reza MD [address] [facility] 200 [place] [address] Assigned PCP 07/01/22 07/07/22 Porsha Michaels APRN HEAD OF COMMISSION DEPARTMENT [address] [place] [address] Assigned Heart and Vascular Provider 07/01/22 07/07/22 Laurel Velasquez MD [address] [place] [address] Assigned Heart and Vascular Provider 07/08/22 08/04/22 Shahida Sutton APRN HEAD OF COMMISSION DEPARTMENT Assigned PCP 07/08/22 09/08/22 Marilin Montaño, HEAD OF COMMISSION DEPARTMENT [address] [place] [address] Assigned Heart and Vascular Provider 08/05/22 Esha Dewitt MD [address] [facility] 36 [place] [address] Gastroenterology 09/06/22 Heather Mosquera MD [address] [place] [address] Internal Medicine 09/06/22 Paula Reza MD [address] [place], [place] [address] Assigned PCP 09/09/22 01/05/23 Esha Dewitt MD [address] [address] Assigned Gastroenterology Provider 09/23/22 Vlado Escamilla PA-C [address] [facility] [address] [place], [place] [address] Assigned Neuroscience Provider 09/30/22 Nohelia Abarca PA-C [address] [place], [place] [address] Physician Supervisor Coil Winding Gastroenterology 10/03/22 Heather Mosquera MD [address] [place] [address] Assigned PCP 01/06/23 Fawad York MD [address] [place], [place] [address] Assigned Musculoskeletal Provider 04/27/23 06/25/23 documented as of this encounter
--- OUTSIDE RECORDS SUMMARY | 2023-12-25 08:15 | XMS_ITS | Encounter Summary ---
Author Organization [facility] Address [address] [place] [address] Care Team Providers Care Division Operations Specialist Name Role Phone Shahida Sutton APRN HAIRSPRING I INSPECTOR Primary Care Provi ford Unavailable Shahida Sutton APRN HAIRSPRING I INSPECTOR Unavailable Un available Carolynn Ramon RN Unavailable Augustine Callaway MD Unavailable Brady Lion MD Unavailable Un available Nima France-C Unavailable Camille Chandler PA-C Unavailable [phone] Anabela Barakat APRN HAIRSPRING I INSPECTOR Unavailable Nima France PA-C Unavailable Basilio Morillo DO Unavailable Fawad York MD Unavailable Roopa Almonte MD Unavailable Augustine Callaway MD Unavailable Maryse Burton PA-C Unavailable [phone] Marquita Starkey MD Unavailable Roopa Almonte MD Unavailable Griffin Joshi MD Unavailable Rina Magallon RN Unavailable [phone] Paula Reza MD Primary Care Provider [phone] Griffin Joshi MD Unavailable Roopa Almonte MD Unavailable [phone] Basilio Morillo DO Unavailable Lydia Bernstein-C Unavailable Rosa Maria Love Unavailable [phone] Augustine Callaway MD Unavailable Paula Reza MD Unavailable Keerthi Miner APRN HAIRSPRING I INSPECTOR Unavailable [phone] Herman, Shahida Cummings APRN HAIRSPRING I INSPECTOR Unavailable Un available Porsha Michaels APRN HAIRSPRING I INSPECTOR Unavailable [phone] Paula Reza MD Unavailable Shahida Sutton APRN HAIRSPRING I INSPECTOR Unavailable Un available Daylin Ludwig Unavailable [phone] Laurel Velasquez MD Unavailable [phone] Daylin Ludwig Unavailable [phone] Paula Reza MD Unavailable Porsha Michaels APRN HAIRSPRING I INSPECTOR Unavailable [phone] Laurel Velasquez MD Unavailable [phone] Shahida Sutton AUTOMOTIVE ENGINEER HAIRSPRING I INSPECTOR Unavailable Un available Marilin Montaño HAIRSPRING I INSPECTOR Unavailable [phone] Esha Dewitt MD Unavailable [phone] EvelineHeather MD Unavailable [phone] Paula Reza MD Unavailable Esha Dewitt MD Unavailable [phone] Andi Valdo Desouza PA-C Unavailable [phone] Nohelia Abarca PA-C Unavailable [phone] Heather Mosquera MD Unavailable [phone] Fawad York MD Unavailable [phone] Reason for Visit * Reason Comments Medication Refill Encounter Details Date Type Department Care Team (Late st Contact Info) Description 08/03/[address] [address] Shahida Sutton APRN CNP Medication [...] 08/05/2020 2:10 PM CDT Prescription approved per [facility] Refill Protocol. Marilin Cuevas RN [facility] -- Triage Nurse documented in this [...] Start Date End Date Shahida Sutton APRN HAIRSPRING I INSPECTOR PCP - General Nurse Practitioner 08/17/14 08/04/21 Paula Reza MD [address] [facility] 200 [place] [address] PCP - General Internal Medicine 08/05/21 Shahida Sutton APRN HAIRSPRING I INSPECTOR Assigned PCP 07/12/14 09/30/21 Carolynn Ramon RN Personal Advocate & Liaison (PAL) 12/17/18 08/07/21 [place] [address] [address] [place] [address] Assigned Musculoskeletal Provider 12/26/19 08/21/20 Brady Lion MD Assigned Heart and Vascular Provider 12/26/19 08/14/20 Nima France PA-C [address] [place] [address] Assigned Surgical Provider 05/19/20 08/21/20 Camille Chandler PA-C [address] [place] [address] Assigned Neuroscience Provider 05/19/20 09/14/20 Anabela Barakat APRN HAIRSPRING I INSPECTOR 1700 [place] [address] Assigned Heart and Vascular Provider 08/15/20 08/05/21 Nima France PA-C 6545 [facility] 450 [place] [address] Assigned Musculoskeletal Provider 08/22/20 11/13/20 [place] [address] [facility] [place], [place] [address] Assigned Musculoskeletal Provider 11/14/20 12/04/20 Fawad York MD [address] [place], [place] [address] Assigned Musculoskeletal Provider 12/05/20 02/05/21 Roopa Almonte MD [address] [facility] 200 [place] [address] Endocrinology, Diabetes, and Metabolism 01/19/21 [place] [address] [facility] 300 [place] [address] Assigned Musculoskeletal Provider 02/06/21 09/16/21 Maryse Burton PA-C 5200 [place] [address] Physician Spa Coordinator Dermatology 04/14/21 Marquita Starkey MD [address] [facility] 200 [place] [address] Internal Medicine 05/06/21 05/06/21 Roopa Almonte MD [address] [place] [address] Hospitalist Endocrinology, Diabetes, and Metabolism 05/30/21 Griffin Joshi MD [address] [facility] [address] [place] [address] Cardiovascular Disease 07/25/21 Rina Magallon, RN Lead Technology Program Manager 07/29/21 07/11/22 Griffin Joshi MD [address] [facility] [address] [place] [address] Assigned Heart and Vascular Provider 08/06/21 10/07/21 Roopa Almonte MD [address] [facility] 200 [place] [address] Assigned Endocrinology Provider 09/10/21 [place] [address] [facility] [place] [address] Assigned Musculoskeletal Provider 09/17/21 10/14/21 Lydia Bernstein PA-C [address] [facility] [address] [place] [address] Assigned PCP 10/01/21 10/21/21 Rosa Maria Love CHW Community Health Worker 10/06/21 07/11/22 [place] [address] [address] [place] [address] Assigned Musculoskeletal Provider 10/15/21 04/26/23 Paula Reza MD [address] [place] [address] Assigned PCP 10/22/21 12/23/21 Keerthi Miner APRN HAIRSPRING I INSPECTOR [address] [place] [address] Assigned Heart and Vascular Provider 10/08/21 02/10/22 Shahida Sutton APRN HAIRSPRING I INSPECTOR Assigned PCP 12/24/21 03/24/22 Porsha Michaels APRN HAIRSPRING I INSPECTOR [address] [place] [address] Assigned Heart and Vascular Provider 02/11/22 05/12/22 Paula Reza MD [address] [place] [address] Assigned PCP 03/25/22 04/07/22 Shahida Sutton APRN HAIRSPRING I INSPECTOR [address] [place] [address] Assigned PCP 04/08/22 06/30/22 Daylin Ludwig, MIKI [facility] [address] [place] [address] Cardiac Rehabilitation Therapist 05/16/23 Laurel Velasquez MD [address] [place] [address] Assigned Heart and Vascular Provider 05/13/22 06/30/22 Daylin Ludwig, MIKI [facility] [address] [place], [place] [address] Cardiac Rehabilitation Therapist 06/08/22 06/09/23 Paula Reza MD [address] [place], [place] [address] Assigned PCP 07/01/22 07/07/22 Porsha Michaels APRN HAIRSPRING I INSPECTOR [address] [place] [address] Assigned Heart and Vascular Provider 07/01/22 07/07/22 Laurel Velasquez MD [address] [place] [address] Assigned Heart and Vascular Provider 07/08/22 08/04/22 Shahida Sutton, DUANE HAIRSPRING I INSPECTOR Assigned PCP 07/08/22 09/08/22 Marilin Montaño, HAIRSPRING I INSPECTOR [address] [place] [address] Assigned Heart and Vascular Provider 08/05/22 Esha Dewitt MD [address] [place] [address] 36 [place], [place] [address] Gastroenterology 09/06/22 Heather Mosquera MD [address] [place] [address] Internal Medicine 09/06/22 Paula Reza MD [address] [place] [address] Assigned PCP 09/09/22 01/05/23 Esha Dewitt MD 420 [facility] 36 [place], [place] [address] Assigned Gastroenterology Provider 09/23/22 Valdo Escamilla PA-C 6[address] [facility] 103 [place] [address] Assigned Neuroscience Provider 09/30/22 Nohelia Abarca PA-C [address] [place] [address] Physician Spa Coordinator Gastroenterology 10/03/22 Heather Mosquera MD [address] [facility] [address] [facility] 150 [place] [address] Assigned PCP 01/06/23 Fawad York MD [address] [place], [place] [address] Assigned Musculoskeletal Provider 04/27/23 06/25/23 documented as of this encounter
--- OUTSIDE RECORDS SUMMARY | 2023-12-25 08:15 | XMS_ITS | Encounter Summary ---
Author Organization [facility] Address [address] [place] [address] Care Team Providers Care Waterproof Coating Machine Tender Name Role Phone HermanShahida huerta APRN SECOND CHEF Primary Care Provi ford Unavailable Shahida Sutton APRN SECOND CHEF Unavailable Un available Carolynn Ramon RN Unavailable Anabela Barakat APRN SECOND CHEF Unavailable Nima France PA-C Unavailable [phone] Basilio Morillo DO Unavailable Fawad York MD Unavailable [phone] Roopa Almonte MD Unavailable [phone] Augustine Callaway MD Unavailable Maryse Burton PA-C Unavailable [phone] Marquita Starkey MD Unavailable [phone] Roopa Almonte MD Unavailable Griffin Joshi MD Unavailable Rina Magallon RN Unavailable Paula Reza MD Primary Care Provider [phone] Griffin Joshi MD Unavailable Roopa Almonte MD Unavailable Ilia Basilio Naik Unavailable Lydia Bernstein PA-C Unavailable Kate Rosa Maria CHW Unavailable Augustine Callaway MD Unavailable Paula Reza MD Unavailable Keerthi Miner APRN SECOND CHEF Unavailable Herman, Shahida Cummings APRN SECOND CHEF Unavailable Un available Porsha Michaels APRN SECOND CHEF Unavailable [phone] Paula Reza MD Unavailable Herman, Shahida Cummings APRN SECOND CHEF Unavailable Un available Daylin Ludwig Unavailable [phone] Laurel Velasquez MD Unavailable Daylin Ludwig Unavailable [phone] Paula Reza MD Unavailable Porsha Michaels APRN SECOND CHEF Unavailable [phone] Laurel Velasquez MD Unavailable Herman, Shahida Cummings APRN SECOND CHEF Unavailable Un available Mairlin Montaño SECOND CHEF Unavailable [phone] Esha Dewitt MD Unavailable [phone] Heather Mosquera MD Unavailable Paula Reza MD Unavailable Esha Dewitt MD Unavailable [phone] Valdo Escamilla PA-C Unavailable [phone] Nohelia Abarca PA-C Unavailable [phone] Heather Mosquera MD Unavailable Fawad York MD Unavailable Encounter Details Date Type Department Care Team (Late st Contact Info) Description 09/23/2020 My[facility] Medical Advice [address] [address] Shahida Sutton, BAD WORK GATHERER SECOND CHEF Social History Tobacco Use Types Packs/Day Years [...] AM CDT RN placed call to [facility] to discuss ##6 on FMLA paperwork - awaiting call back Letter written to employer advising that pcp is out of the office until at which time we will assist with changes requested on FMLA paperwork Information from my chart - To the Attention of Carolynn: ?? Here is what the customer account administrator is requesting: < < You must [...] Ramon Registered Nurse, ULISES (Patient Advocate Liason) [facility] [phone] documented in this encounter Plan of Treatment [...] documented as of this encounter Care Teams Waterproof Coating Machine Tender Relationship Specialty Start Date End Date Shahida Sutton APRN SECOND CHEF PCP - General Nurse Practitioner 08/17/14 08/04/21 Paula Reza MD [facility] [address] [address] PCP - General Internal Medicine 08/05/21 Shahida Sutton APRN SECOND CHEF Assigned PCP 07/12/14 09/30/21 Carolynn Ramon RN Personal Advocate & Liaison (PAL) 12/17/18 08/07/21 Anabela Barakat APRN SECOND CHEF [address] [place] [address] Assigned Heart and Vascular Provider 08/15/20 08/05/21 Nima France PA-C [address] [place] [address] Assigned Musculoskeletal Provider 08/22/20 11/13/20 [place] [address] [facility] [place] [address] Assigned Musculoskeletal Provider 11/14/20 12/04/20 Fawad York MD [address] [place], [place] [address] Assigned Musculoskeletal Provider 12/05/20 02/05/21 Roopa Almonte MD [address] [place] [address] Endocrinology, Diabetes, and Metabolism 01/19/21 [place] [address] [facility] [address] [place] [address] Assigned Musculoskeletal Provider 02/06/21 09/16/21 Maryse Burton, PA-C [address] [place] [address] Physician Bicycle I Assembler Dermatology 04/14/21 Marquita Starkey MD [address] [place] [address] Internal Medicine 05/06/21 05/06/21 Roopa Almonte MD [address] [place] [address] Hospitalist Endocrinology, Diabetes, and Metabolism 05/30/21 Griffin Joshi MD [address] [place] [address] Cardiovascular Disease 07/25/21 Rina Magallon, RN Lead Refining Equipment Operator 07/29/21 07/11/22 Griffin Joshi MD [address] [facility] [address] [place] [address] Assigned Heart and Vascular Provider 08/06/21 10/07/21 Roopa Almonte MD [address] [facility] 200 [place] [address] Assigned Endocrinology Provider 09/10/21 [place] [address] [facility] [place] [address] Assigned Musculoskeletal Provider 09/17/21 10/14/21 Lydia Bernstein PA-C [address] [facility] 150 [place] [address] Assigned PCP 10/01/21 10/21/21 Rosa Maria Love CHW Community Health Worker 10/06/21 07/11/22 [place] [address] [facility] 300 [place] [address] Assigned Musculoskeletal Provider 10/15/21 04/26/23 Paula Reza MD [address] [facility] 200 [place] [address] Assigned PCP 10/22/21 12/23/21 Keerthi Miner APRN SECOND CHEF [address] [place] [address] Assigned Heart and Vascular Provider 10/08/21 02/10/22 Shahida Sutton APRN SECOND CHEF Assigned PCP 12/24/21 03/24/22 Porsha Michaels APRN SECOND CHEF [address] [place] [address] Assigned Heart and Vascular Provider 02/11/22 05/12/22 Paula Reza MD [address] [facility] 200 [place] [address] Assigned PCP 03/25/22 04/07/22 Shahida Sutton APRN SECOND CHEF [address] [place] [address] Assigned PCP 04/08/22 06/30/[address] [facility] [address] [place] [address] Cardiac Rehabilitation Therapist 05/16/23 Laurel Velasquez MD [address] [place] [address] Assigned Heart and Vascular Provider 05/13/22 06/30/[address] [facility] [address] [place] [address] Cardiac Rehabilitation Therapist 06/08/22 06/09/23 Paula Reza MD [address] [place] [address] Assigned PCP 07/01/22 07/07/22 Porsha Michaels APRN SECOND CHEF [address] [place] [address] Assigned Heart and Vascular Provider 07/01/22 07/07/22 Laurel Velasquez MD [address] [place] [address] Assigned Heart and Vascular Provider 07/08/22 08/04/22 Shahida Sutton APRN SECOND CHEF Assigned PCP 07/08/22 09/08/22 Marilin Montaño SECOND CHEF [address] [place] [address] Assigned Heart and Vascular Provider 08/05/22 Esha Dewitt MD [address] [place] [address] Gastroenterology 09/06/22 Heather Mosquera MD [address] [place] [address] Internal Medicine 09/06/22 Paula Reza MD [address] [place] [address] Assigned PCP 09/09/22 01/05/23 Esha Dewitt MD [address] [place] [address] Assigned Gastroenterology Provider 09/23/22 Valdo Escamilla PA-C 6363 [facility] 103 [place], [place] [address] Assigned Neuroscience Provider 09/30/22 Nohelia Abarca PA-C [address] [place], [place] [address] Physician Bicycle I Assembler Gastroenterology 10/03/22 Heather Mosquera MD 6545 [facility] 150 [place], [place] [address] Assigned PCP 01/06/23 Fawad York MD [address] [place], [place] [address] Assigned Musculoskeletal Provider 04/27/23 06/25/23 documented as of this encounter
--- OUTSIDE RECORDS SUMMARY | 2023-12-25 08:15 | XMS_ITS | Encounter Summary ---
Author Organization [facility] Address [address] [place] [address] Care Team Providers Care Tile Ditcher Name Role Phone Shahida Sutton APRN CAMPAIGN DEVELOPER Primary Care Provi ford Unavailable Shahida Sutton APRN CAMPAIGN DEVELOPER Unavailable Un available Carolynn Ramon RN Unavailable [phone] Augustine Callaway MD Unavailable Brady Lion MD Unavailable Un available Nima France-C Unavailable Camille Chandler PA-C Unavailable [phone] Anabela Barakat APRN CAMPAIGN DEVELOPER Unavailable Nima France PA-C Unavailable Basilio Morillo DO Unavailable [phone] Fawad York MD Unavailable [phone] Roopa Almonte MD Unavailable Augustine Callaway MD Unavailable Maryse Burton PA-C Unavailable Marquita Starkey MD Unavailable Roopa Almonte MD Unavailable Griffin Joshi MD Unavailable Rina Magallon RN Unavailable [phone] Paula Reza MD Primary Care Provider [phone] Griffin Joshi MD Unavailable Roopa Almonte MD Unavailable [phone] Basilio Morillo DO Unavailable Lydia Bernstein-C Unavailable Rosa Maria Love Unavailable [phone] Augustine Callaway MD Unavailable Paula Reza MD Unavailable Keerthi Miner APRN CAMPAIGN DEVELOPER Unavailable [phone] Herman, Shahida Cummings APRN CAMPAIGN DEVELOPER Unavailable Un available Porsha Michaels APRN CAMPAIGN DEVELOPER Unavailable [phone] Paula Reza MD Unavailable Shahida Sutton APRN CAMPAIGN DEVELOPER Unavailable Un available Daylin Ludwig Unavailable [phone] Laurel Velasquez MD Unavailable [phone] Daylin Ludwig Unavailable [phone] Paula Reza MD Unavailable Porsha Michaels APRN CAMPAIGN DEVELOPER Unavailable [phone] Laurel Velasquez MD Unavailable [phone] Shahida Sutton DIRECTOR OF RECREATION THERAPY CAMPAIGN DEVELOPER Unavailable Un available Marilin Montaño CAMPAIGN DEVELOPER Unavailable [phone] Esha Dewitt MD Unavailable [phone] EvelineHeather MD Unavailable [phone] Paula Reza MD Unavailable Esha Dewitt MD Unavailable [phone] Valdo Escamilla PA-C Unavailable [phone] Nohelia Abarca PA-C Unavailable [phone] Heather Mosquera MD Unavailable [phone] Fawad York MD Unavailable Encounter Details Date [...] COVID-19? No / Unsure 05/03/2020 9:33 AM STICKER MACHINE OPERATOR documented as of this encounter [...] documented as of this encounter Care Teams Tile Ditcher Relationship Specialty Start Date End Date Shahida Sutton APRN CAMPAIGN DEVELOPER PCP - General Nurse Practitioner 6/15/15 6/2/22 Paula Reza MD [address] [facility] 200 [place] [address] PCP - General Internal Medicine 08/05/21 Shahida Sutton APRN CAMPAIGN DEVELOPER Assigned PCP 07/12/14 09/30/21 Carolynn Ramon RN Personal Advocate & Liaison (PAL) 12/17/18 08/07/21 [place] [address] [place] [address] Assigned Musculoskeletal Provider 12/26/19 08/21/20 Brady Lion MD Assigned Heart and Vascular Provider 12/26/19 08/14/20 Nima France PA-C [address] [place] [address] Assigned Surgical Provider 05/19/20 08/21/20 Camille Chandler PA-C [address] [facility] [address] [place] [address] Assigned Neuroscience Provider 05/19/20 09/14/20 Anabela Barakat APRN CAMPAIGN DEVELOPER [address] [place] [address] Assigned Heart and Vascular Provider 08/15/20 08/05/21 Nima France PA-C [address] [place] [address]395 Assigned Musculoskeletal Provider 08/22/20 11/13/20 [place] [address] [facility] [place] [address] Assigned Musculoskeletal Provider 11/14/20 12/04/20 Fawad York MD 909 [place] [address] Assigned Musculoskeletal Provider 12/05/20 02/05/21 Roopa Almonte MD [address] [facility] 200 [place] [address] Endocrinology, Diabetes, and Metabolism 01/19/21 [place] [address] [facility] [address] [place] [address] Assigned Musculoskeletal Provider 02/06/21 09/16/21 Maryse Burton, PA-C [address] [place] [address] Physician Quality Controller Dermatology 04/14/21 Marquita Starkey MD [address] [facility] 200 [place] [address] Internal Medicine 05/06/21 05/06/21 Roopa Almonte MD [address] [facility] 200 [place] [address] Hospitalist Endocrinology, Diabetes, and Metabolism 05/30/21 Griffin Joshi MD 6405 [facility] [address] [place] [address] Cardiovascular Disease 07/25/21 Rina Magallon, RN Lead Soft Boarder 07/29/21 07/11/22 Griffin Johsi MD [address] [place] [address] Assigned Heart and Vascular Provider 08/06/21 10/07/21 Roopa Almonte MD [address] [facility] 200 [place], [place] [address] Assigned Endocrinology Provider 09/10/21 [place] [address] [facility] [place] [address] Assigned Musculoskeletal Provider 09/17/21 10/14/21 Lydia Bernstein PA-C [address] [place] [address] Assigned PCP 10/01/21 10/21/21 Rosa Maria Love Cristina Community Health Worker 10/06/21 07/11/22 [place] [address] [address] [facility] 300 [place] [address] Assigned Musculoskeletal Provider 10/15/21 04/26/23 Paula Reza MD [address] [facility] 200 [place] [address] Assigned PCP 10/22/21 12/23/21 Keerthi Miner APRN CAMPAIGN DEVELOPER [address] [place] [address] Assigned Heart and Vascular Provider 10/08/21 02/10/22 Shahida Sutton APRN CAMPAIGN DEVELOPER Assigned PCP 12/24/21 03/24/22 Porsha Michaels APRN CAMPAIGN DEVELOPER [address] [place] [address] Assigned Heart and Vascular Provider 02/11/22 05/12/22 Paula Reza MD [address] [place] [address] Assigned PCP 03/25/22 04/07/22 Shahida Sutton APRN CAMPAIGN DEVELOPER [address] [place] [address] Assigned PCP 04/08/22 06/30/22 Daylin Ludwig, EP [facility] [address] [place] [address] Cardiac Rehabilitation Therapist 05/16/23 Laurel Velasquez MD [address] [place] [address] Assigned Heart and Vascular Provider 05/13/22 06/30/22 Daylin Ludwig, EP [facility] [address] [place] [address] Cardiac Rehabilitation Therapist 06/08/22 06/09/23 Paula Reza MD [address] [place], [place] [address] Assigned PCP 07/01/22 07/07/22 Porsha Michaels APRN CAMPAIGN DEVELOPER [address] [place] [address] Assigned Heart and Vascular Provider 07/01/22 07/07/22 Laurel Velasquez MD [address] [place] [address] Assigned Heart and Vascular Provider 07/08/22 08/04/22 Shahida Sutton APRN CAMPAIGN DEVELOPER Assigned PCP 07/08/22 09/08/22 Marilin Montaño, CAMPAIGN DEVELOPER [address] [place] [address] Assigned Heart and Vascular Provider 08/05/22 Esha Dewitt MD [address] [address] Gastroenterology 09/06/22 Heather Mosquera MD [address] [place] [address] Internal Medicine 09/06/22 Paula Reza MD [address] [facility] 200 [place], [place] [address] Assigned PCP 09/09/22 01/05/23 Esha Dewitt MD 420 [facility] 36 [place] [address] Assigned Gastroenterology Provider 09/23/22 Valdo Escamilla PA-C 6[address] [facility] [address] [address] [place] [address] Assigned Neuroscience Provider 09/30/22 Nohelia Abarca PA-C [address] [facility] [place] [address] Physician Quality Controller Gastroenterology 10/03/22 Heather Mosquera MD [address] [place] [address] Assigned PCP 01/06/23 Fawad York MD [address] [place], [place] [address] Assigned Musculoskeletal Provider 04/27/23 06/25/23 documented as of this encounter
--- OUTSIDE RECORDS SUMMARY | 2023-12-25 08:15 | XMS_ITS | Encounter Summary ---
Author Organization [place] Address [address] [place] [address] Care Team Providers Care Plasterer Spot Name Role Phone Shahida Sutton APRN STRADDLE BUG OPERATOR Primary Care Provi ford Unavailable Shahida Sutton APRN STRADDLE BUG OPERATOR Unavailable Un available Carolynn Ramon RN Unavailable Augustine Callaway MD Unavailable Brady Lion MD Unavailable Un available Nima France-C Unavailable Camille Chandler PA-C Unavailable [phone] Anabela Barakat APRN STRADDLE BUG OPERATOR Unavailable Nima France PA-C Unavailable Basilio Morillo DO Unavailable Fawad York MD Unavailable Roopa Almonte MD Unavailable Augustine Callaway MD Unavailable Maryse Burton PA-C Unavailable Marquita Starkey MD Unavailable [phone] Roopa Almonte MD Unavailable Griffin Joshi MD Unavailable Rina Magallon RN Unavailable [phone] Paula Reza MD Primary Care Provider [phone] Griffin Joshi MD Unavailable Roopa Almonte MD Unavailable [phone] Basilio Morillo DO Unavailable Lydia Bernstein-C Unavailable Rosa Maria Love Unavailable [phone] Augustine Callaway MD Unavailable Paula Reza MD Unavailable Keerthi Miner APRN STRADDLE BUG OPERATOR Unavailable [phone] Herman, Shahida Cummings APRN STRADDLE BUG OPERATOR Unavailable Un available Porsha Michaels APRN STRADDLE BUG OPERATOR Unavailable [phone] Paula Reza MD Unavailable Shahida Sutton APRN STRADDLE BUG OPERATOR Unavailable Un available Daylin Ludwig Unavailable [phone] Laurel Velasquez MD Unavailable [phone] Daylin Ludwig Unavailable [phone] Paula Reza MD Unavailable Porsha Michaels APRN STRADDLE BUG OPERATOR Unavailable [phone] Laurel Velasquez MD Unavailable [phone] Shahida Sutton OFFICE LEAD STRADDLE BUG OPERATOR Unavailable Un available Marilin Montaño STRADDLE BUG OPERATOR Unavailable [phone] Esha Dewitt MD Unavailable [phone] EvelineHeather MD Unavailable [phone] Paula Reza MD Unavailable Esha Dewitt MD Unavailable [phone] Andi Valdo Desouza PA-C Unavailable Nohelia Abarca PA-C Unavailable [phone] Heather Mosquera MD Unavailable Fawad York MD Unavailable Reason for Visit * Reason Comments Medication Refill Encounter Details Date Type Department Care Team (Late st Contact Info) Description 03/31/[address] [address] Shahida Sutton APRN STRADDLE BUG OPERATOR Medication Refill Social History Tobacco Use Types [...] Paige Mena RN - 03/31/2020 11:32 AM BOAT PAINTER Routing refill request to provider for review/approval because: Drug not on the [facility] refill protocol Paige Mena RN PAINTER documented in this encounter Plan of [...] documented as of this encounter Care Teams Plasterer Spot Relationship Specialty Start Date End Date Shahida Sutton APRN STRADDLE BUG OPERATOR PCP - General Nurse Practitioner 08/17/14 08/04/21 Paula Reza MD [address] [facility] 200 [place] [address] PCP - General Internal Medicine 08/05/21 Shahida Sutton APRN STRADDLE BUG OPERATOR Assigned PCP 07/12/14 09/30/21 Carolynn Ramon RN Personal Advocate & Liaison (PAL) 12/17/18 08/07/21 [place] [address] [place], [place] [address] Assigned Musculoskeletal Provider 12/26/19 08/21/20 Brady Lion MD Assigned Heart and Vascular Provider 12/26/19 08/14/20 Nima France PA-C [address] [place] [address] Assigned Surgical Provider 05/19/20 08/21/20 Camille Chandler PA-C [address] [place] [address] Assigned Neuroscience Provider 05/19/20 09/14/20 Anabela Barakat APRN STRADDLE BUG OPERATOR 1700 [place] [address] Assigned Heart and Vascular Provider 08/15/20 08/05/21 Nima France PA-C 6545 [facility] 450 [place] [address] Assigned Musculoskeletal Provider 08/22/20 11/13/20 [place] [address] [facility] [place], [place] [address] Assigned Musculoskeletal Provider 11/14/20 12/04/20 Fawad York MD [address] [place], [place] [address] Assigned Musculoskeletal Provider 12/05/20 02/05/21 Roopa Almonte MD [address] [employer] [facility] 200 [place] [address] Endocrinology, Diabetes, and Metabolism 01/19/21 [place] [address] [facility] 300 [place] [address] Assigned Musculoskeletal Provider 02/06/21 09/16/21 Maryse Burton PA-C 5200 [place] [address] Physician Invasive Physician Dermatology 04/14/21 Marquita Starkey MD [address] [facility] [address] [place] [address] Internal Medicine 05/06/21 05/06/21 Roopa Almonte MD [address] [place] [address] Hospitalist Endocrinology, Diabetes, and Metabolism 05/30/21 Griffin Joshi MD [address] [facility] [address] [place] [address] Cardiovascular Disease 07/25/21 Rina Magallon, RN Lead Washing Machine Loader 07/29/21 07/11/22 Griffin Joshi MD [address] [facility] [address] [place] [address] Assigned Heart and Vascular Provider 08/06/21 10/07/21 Roopa Almonte MD [address] [facility] 200 [place] [address] Assigned Endocrinology Provider 09/10/21 [place] [address] [facility] [place] [address] Assigned Musculoskeletal Provider 09/17/21 10/14/21 Lydia Bernstein PA-C [address] [facility] 150 [place] [address] Assigned PCP 10/01/21 10/21/21 Rosa Maria Love CHW Community Health Worker 10/06/21 07/11/22 [place] [address] [place] [facility] 300 [place] [address] Assigned Musculoskeletal Provider 10/15/21 04/26/23 Paula Reza MD [address] [place] [address] Assigned PCP 10/22/21 12/23/21 Keerthi Miner APRN STRADDLE BUG OPERATOR [address] [place] [address] Assigned Heart and Vascular Provider 10/08/21 02/10/22 Shahida Sutton APRN STRADDLE BUG OPERATOR Assigned PCP 12/24/21 03/24/22 Porsha Michaels APRN STRADDLE BUG OPERATOR [address] [place] [address] Assigned Heart and Vascular Provider 02/11/22 05/12/22 Paula Reza MD [address] [place] [address] Assigned PCP 03/25/22 04/07/22 Shahida Sutton APRN STRADDLE BUG OPERATOR [address] [place] [address] Assigned PCP 04/08/22 06/30/22 Daylin Ludwig, MIKI [facility] [address] [place] [address] Cardiac Rehabilitation Therapist 05/16/23 Laurel Velasquez MD [address] [place] [address] Assigned Heart and Vascular Provider 05/13/22 06/30/22 Daylin Ludwig EP [facility] [address] [place] [address] Cardiac Rehabilitation Therapist 06/08/22 06/09/23 Paula Reza MD [address] [place], [place] [address] Assigned PCP 07/01/22 07/07/22 Porsha Michaels APRN STRADDLE BUG OPERATOR [address] [place] [address] Assigned Heart and Vascular Provider 07/01/22 07/07/22 Laurel Velasquez MD [address] [place] [address] Assigned Heart and Vascular Provider 07/08/22 08/04/22 Shahida Sutton, OFFICE LEAD STRADDLE BUG OPERATOR Assigned PCP 07/08/22 09/08/22 Marilin Montaño, STRADDLE BUG OPERATOR [address] [place] [address] Assigned Heart and Vascular Provider 08/05/22 Esha Dewitt MD [address] [place] [address] 36 [place], [place] [address] Gastroenterology 09/06/22 Heather Mosquera MD [address] [place] [address] Internal Medicine 09/06/22 Paula Reza MD [address] [place], [place] [address] Assigned PCP 09/09/22 01/05/23 Esha Dewitt MD 420 [facility] 36 [place] [address] Assigned Gastroenterology Provider 09/23/22 Valdo Escamilla PA-C 6363 [facility] 103 [place] [address] Assigned Neuroscience Provider 09/30/22 Nohelia Abarca PA-C 2450 [place] [address] Physician Invasive Physician Gastroenterology 10/03/22 Heather Mosquera MD 6545 [facility] 150 [place] [address] Assigned PCP 01/06/23 Fawad York MD 9[address] [place], [place] [address] Assigned Musculoskeletal Provider 04/27/23 06/25/23 documented as of this encounter
--- OUTSIDE RECORDS SUMMARY | 2023-12-25 08:15 | XMS_ITS | Encounter Summary ---
Author Organization [facility] Address [address] [place] [address] Care Team Providers Care Underwriting Technician Name Role Phone HermanShahida huerta APRN BOARD CATCHER Primary Care Provi ford Unavailable Shahida Sutton APRN BOARD CATCHER Unavailable Un available Carolynn Ramon RN Unavailable [phone] Anabela Barakat APRN BOARD CATCHER Unavailable Nima France PA-C Unavailable [phone] Basilio Morillo DO Unavailable [phone] Fawad York MD Unavailable Roopa Almonte MD Unavailable Augustine Callaway MD Unavailable Maryse Burton PA-C Unavailable [phone] Marquita Starkey MD Unavailable Roopa Almonte MD Unavailable Griffin Joshi MD Unavailable Rina Magallon RN Unavailable Paula Reza MD Primary Care Provider Griffin Joshi MD Unavailable Roopa Almonte MD Unavailable Ilia Basilio Naik Unavailable Lydia Bernstein PA-C Unavailable Kate Rosa Maria CHW Unavailable Augustine Callaway MD Unavailable Paula Reza MD Unavailable Keerthi Miner APRN BOARD CATCHER Unavailable Herman, Shahida Cummings APRN BOARD CATCHER Unavailable Un available Porsha Michaels APRN BOARD CATCHER Unavailable [phone] Paula Reza MD Unavailable Herman, Shahida Cummings APRN BOARD CATCHER Unavailable Un available Daylin Ludwig Unavailable [phone] Laurel Velasquez MD Unavailable Daylin Ludwig Unavailable [phone] Paula Reza MD Unavailable Porsha Michaels APRN BOARD CATCHER Unavailable [phone] Laurel Velasquez MD Unavailable Herman, Shahida Cummings APRN BOARD CATCHER Unavailable Un available Marilin Montaño BOARD CATCHER Unavailable [phone] Esha Dewitt MD Unavailable [phone] Heather Mosquera MD Unavailable Paula Reza MD Unavailable Esha Dewitt MD Unavailable [phone] Valdo Escamilla PA-C Unavailable [phone] Nohelia Abarca PA-C Unavailable [phone] Heather Mosquera MD Unavailable Fawad York MD [facility] Encounter Details Date Type Department Care Team (Late st Contact Info) Description 11/09/2020 MyC Medical Advice [address] [phone] Hiral Curran, DOGMAN/WOMAN Social History Tobacco Use Types Packs/Day Years [...] documented as of this encounter Care Teams Underwriting Technician Relationship Specialty Start Date End Date Shahida Sutton APRN BOARD CATCHER PCP - General Nurse Practitioner 08/17/14 08/04/21 Paula Reza MD [address] [place] [address] PCP - General Internal Medicine 08/05/21 Shahida Sutton, CERTIFIED ORTHOTIST PRACTICE MANAGER BOARD CATCHER Assigned PCP 07/12/14 09/30/21 Carolynn Ramon, KASIE Personal Advocate & Liaison (PAL) 12/17/18 08/07/21 Anabela Barakat, CERTIFIED ORTHOTIST PRACTICE MANAGER BOARD CATCHER [address] [place] [address] Assigned Heart and Vascular Provider 08/15/20 08/05/21 Nima France PA-C 6545 [facility] 450 [place] [address] Assigned Musculoskeletal Provider 08/22/20 11/13/20 [place] [address] [facility] [place] [address] Assigned Musculoskeletal Provider 11/14/20 12/04/20 Fawad York MD [address] [place], [place] [address] Assigned Musculoskeletal Provider 12/05/20 02/05/21 Roopa Almonte MD [address] [facility] [address] 200 [place] [address] Endocrinology, Diabetes, and Metabolism 01/19/21 [place] [address] [place] [address] Assigned Musculoskeletal Provider 02/06/21 09/16/21 Maryse Burton PA-C [address] [facility] [address] Physician Calciner Operator Dermatology 04/14/21 Marquita Starkey MD [address] [facility] [address] [place], [place] [address] Internal Medicine 05/06/21 05/06/21 Roopa Almonte MD [address] [facility] 200 [place], [place] [address] Hospitalist Endocrinology, Diabetes, and Metabolism 05/30/21 Griffin Joshi MD [address] [place] [address] Cardiovascular Disease 07/25/21 Rina Magallon, RN Lead Supervisor Sewing Room 07/29/21 07/11/22 Griffin Joshi MD [address] [place] [address] Assigned Heart and Vascular Provider 08/06/21 10/07/21 Roopa Almonte MD [address] [place], [place] [address] Assigned Endocrinology Provider 09/10/21 [place] [address] [facility] [place] [address] Assigned Musculoskeletal Provider 09/17/21 10/14/21 Lydia Bernstein PA-C [address] [place] [address] Assigned PCP 10/01/21 10/21/21 Rosa Maria Love CHW Community Health Worker 10/06/21 07/11/22 [place] [address] [place] [address] Assigned Musculoskeletal Provider 10/15/21 04/26/23 Paula Reza MD [address] [place], [place] [address] Assigned PCP 10/22/21 12/23/21 Keerthi Miner APRN BOARD CATCHER [address] [place] [address] Assigned Heart and Vascular Provider 10/08/21 02/10/22 Shahida Sutton APRN BOARD CATCHER Assigned PCP 12/24/21 03/24/22 Porsha Michaels APRN BOARD CATCHER [address] [place] [address] Assigned Heart and Vascular Provider 02/11/22 05/12/22 Paula Reza MD [address] [place] [address] Assigned PCP 03/25/22 04/07/22 Shahida Sutton APRN BOARD CATCHER [address] [place] [address] Assigned PCP 04/08/22 06/30/22 Daylin Ludwig EP [facility] [address] [place] [address] Cardiac Rehabilitation Therapist 05/16/23 Laurel Velasquez MD [address] [place] [address] Assigned Heart and Vascular Provider 05/13/22 06/30/22 Daylin Ludwig EP [facility] [address] [place] [address] Cardiac Rehabilitation Therapist 06/08/22 06/09/23 Paula Reza MD [address] [facility] 200 [place], [place] [address] Assigned PCP 07/01/22 07/07/22 Porsha Michaels APRN BOARD CATCHER [address] [place] [address] Assigned Heart and Vascular Provider 07/01/22 07/07/22 Laurel Velasquez MD [address] [place] [address] Assigned Heart and Vascular Provider 07/08/22 08/04/22 Shahida Sutton APRN BOARD CATCHER Assigned PCP 07/08/22 09/08/22 Marilin Montaño, BOARD CATCHER [address] [place] [address] Assigned Heart and Vascular Provider 08/05/22 Esha Dewitt MD [address] [address] Gastroenterology 09/06/22 Heather Mosquera MD 6545 [facility] 150 [place] [address] Internal Medicine 09/06/22 Paula Reza MD [address] [place] [address] Assigned PCP 09/09/22 01/05/23 Esha Dewitt MD [address] [place] [address] Assigned Gastroenterology Provider 09/23/22 Valdo Escamilla PA-C 6363 [facility] 103 [place] [address] Assigned Neuroscience Provider 09/30/22 Nohelia Abarca PA-C [address] [place] [address] Physician Calciner Operator Gastroenterology 10/03/22 Heather Mosquera MD 6545 [facility] 150 [place] [address] Assigned PCP 01/06/23 Fawad York MD [address] [place], [place] [address] Assigned Musculoskeletal Provider 04/27/23 06/25/23 documented as of this encounter
--- OUTSIDE RECORDS SUMMARY | 2023-12-25 08:15 | XMS_ITS | Encounter Summary ---
Author Organization [facility] Address [address] [place] [address] Care Team Providers Care Roll Threader Operator Name Role Phone Shahida Sutton APRN RADIOLOGY EQUIPMENT SERVICER Primary Care Provi ford Unavailable Shahida Sutton APRN RADIOLOGY EQUIPMENT SERVICER Unavailable Un available Carolynn Ramon RN Unavailable Augustine Callaway MD Unavailable Brady Lion MD Unavailable Un available Nima France-C Unavailable Camille Chandler PA-C Unavailable [phone] Anabela Barakat APRN RADIOLOGY EQUIPMENT SERVICER Unavailable Nima France PA-C Unavailable Basilio Morillo DO Unavailable Fawad York MD Unavailable Roopa Almonte MD Unavailable Augustine Callaway MD Unavailable Maryse Burton PA-C Unavailable Marquita Starkey MD Unavailable Roopa Almonte MD Unavailable Griffin Joshi MD Unavailable Rina Magallon RN Unavailable [phone] Paula Reza MD Primary Care Provider [phone] Griffin Joshi MD Unavailable Roopa Almonte MD Unavailable [phone] Basilio Morillo DO Unavailable Lydia Bernstein-C Unavailable Rosa Maria Love Unavailable [phone] Augustine Callaway MD Unavailable Paula Reza MD Unavailable Keerthi Miner APRN RADIOLOGY EQUIPMENT SERVICER Unavailable [phone] Herman, Shahida Cummings APRN RADIOLOGY EQUIPMENT SERVICER Unavailable Un available Porsha Michaels APRN RADIOLOGY EQUIPMENT SERVICER Unavailable [phone] Paula Reza MD Unavailable Shahida Sutton APRN RADIOLOGY EQUIPMENT SERVICER Unavailable Un available Daylin Ludwig Unavailable [phone] Laurel Velasquez MD Unavailable [phone] Daylin Ludwig Unavailable [phone] Paula Reza MD Unavailable Porsha Michaels APRN RADIOLOGY EQUIPMENT SERVICER Unavailable [phone] Laurel Velasquez MD Unavailable [phone] Shahida Sutton DEVELOPER AUTOMATIC RADIOLOGY EQUIPMENT SERVICER Unavailable Un available Marilin Montaño RADIOLOGY EQUIPMENT SERVICER Unavailable [phone] Esha Dewitt MD Unavailable [phone] EvelineHeather MD Unavailable [phone] Paula Reza MD Unavailable Esha Dewitt MD Unavailable [phone] Valdo Escamilla PA-C Unavailable [phone] Nohelia Abarca PA-C Unavailable [phone] Heather Mosquera MD Unavailable Fawad York MD Unavailable [phone] Encounter Details Date Type Department Care Team (Late st Contact Info) Description 06/29/2020 MyC Medical Advice [address] [address] Hiral Curran, DIRECTOR VALIDATION Social History Tobacco Use Types Packs/Day Years [...] documented as of this encounter Care Teams Roll Threader Operator Relationship Specialty Start Date End Date Shahida Sutton APRN RADIOLOGY EQUIPMENT SERVICER PCP - General Nurse Practitioner 08/17/14 08/04/21 Paula Reza MD [address] [facility] 200 [place] [address] PCP - General Internal Medicine 08/05/21 Shahida Sutton APRN RADIOLOGY EQUIPMENT SERVICER Assigned PCP 07/12/14 09/30/21 Carolynn Ramon, KASIE Personal Advocate & Liaison (PAL) 12/17/18 08/07/21 [place] [address] [facility] 300 [place] [address] Assigned Musculoskeletal Provider 12/26/19 08/21/20 Brady Lion MD Assigned Heart and Vascular Provider 12/26/19 08/14/20 Nima France PA-C 6545 [facility] 450 [place] [address] Assigned Surgical Provider 05/19/20 08/21/20 Camille Chandler PA-C 6545 [facility] [address] [place] [address] Assigned Neuroscience Provider 05/19/20 09/14/20 Anabela Barakat APRN RADIOLOGY EQUIPMENT SERVICER 1700 [place] [address] Assigned Heart and Vascular Provider 08/15/20 08/05/21 Nima France PA-C [address] [facility] [address] [place] [address] Assigned Musculoskeletal Provider 08/22/20 11/13/20 [place] [address] [facility] [place] [address] Assigned Musculoskeletal Provider 11/14/20 12/04/20 Fawad York MD [address] [place], [place] [address] Assigned Musculoskeletal Provider 12/05/20 02/05/21 Roopa Almonte MD [address] [facility] 200 [place] [address] Endocrinology, Diabetes, and Metabolism 01/19/21 [place] [address] [facility] 300 [place] [address] Assigned Musculoskeletal Provider 02/06/21 09/16/21 Maryse Burton PA-C 5200 [place] [address] Physician Opto Mechanical Engineer Dermatology 04/14/21 Marquita Starkey MD [address] [facility] 200 [place] [address] Internal Medicine 05/06/21 05/06/21 Roopa Almonte MD [address] [place] [address] Hospitalist Endocrinology, Diabetes, and Metabolism 05/30/21 Griffin Joshi MD [address] [facility] [address] [place] [address] Cardiovascular Disease 07/25/21 Rina Magallon, RN Lead Cold Roll Catcher 07/29/21 07/11/22 Griffin Joshi MD [address] [facility] [address] [place] [address] Assigned Heart and Vascular Provider 08/06/21 10/07/21 Roopa Almonte MD [address] [facility] 200 [place] [address] Assigned Endocrinology Provider 09/10/21 [place] [address] [place] [address] Assigned Musculoskeletal Provider 09/17/21 10/14/21 Lydia Bernstein PA-C [address] [facility] 150 [place] [address] Assigned PCP 10/01/21 10/21/21 Rosa Maria Love CHW Community Health Worker 10/06/21 07/11/22 [place] [address] [facility] 300 [place] [address] Assigned Musculoskeletal Provider 10/15/21 04/26/23 Paula Reza MD [address] [facility] 200 [place], [place] [address] Assigned PCP 10/22/21 12/23/21 Keerthi Miner DEVELOPER AUTOMATIC RADIOLOGY EQUIPMENT SERVICER [address] [place], [place] [address] Assigned Heart and Vascular Provider 10/08/21 02/10/22 Shahida Sutton DEVELOPER AUTOMATIC RADIOLOGY EQUIPMENT SERVICER Assigned PCP 12/24/21 03/24/22 Porsha Michaels DEVELOPER AUTOMATIC RADIOLOGY EQUIPMENT SERVICER [address] [place] [address] Assigned Heart and Vascular Provider 02/11/22 05/12/22 Paula Reza MD [address] [facility] 200 [place] [address] Assigned PCP 03/25/22 04/07/22 Shahida Sutton APRN RADIOLOGY EQUIPMENT SERVICER [address] [place] [address] Assigned PCP 04/08/22 06/30/22 Daylin Ludwig, MIKI [facility] [address] [place] [address] Cardiac Rehabilitation Therapist 05/16/23 Laurel Velasquez MD [address] [place] [address] Assigned Heart and Vascular Provider 05/13/22 06/30/22 Daylin Ludwig, MIKI [facility] [address] [place] [address] Cardiac Rehabilitation Therapist 06/08/22 06/09/23 Paula Reza MD [address] [place], [place] [address] Assigned PCP 07/01/22 07/07/22 Porsha Michaels APRN RADIOLOGY EQUIPMENT SERVICER [address] [place] [address] Assigned Heart and Vascular Provider 07/01/22 07/07/22 Laurel Velasquez MD [address] [place], [place] [address] Assigned Heart and Vascular Provider 07/08/22 08/04/22 Shahida Sutton APRN RADIOLOGY EQUIPMENT SERVICER Assigned PCP 07/08/22 09/08/22 Marilin Montaño RADIOLOGY EQUIPMENT SERVICER [address] [place] [address] Assigned Heart and Vascular Provider 08/05/22 Esha Dewitt MD [address] [place] [address] Gastroenterology 09/06/22 Heather Mosquera MD [address] [place] [address] Internal Medicine 09/06/22 Paula Reza MD [address] [place] [address] Assigned PCP 09/09/22 01/05/23 Esha Dewitt MD [address] [place] [address] Assigned Gastroenterology Provider 09/23/22 Valdo Escamilla PA-C 6363 [facility] 103 [place] [address] Assigned Neuroscience Provider 09/30/22 Nohelia Abarca PA-C 2450 [place] [address] Physician Opto Mechanical Engineer Gastroenterology 10/03/22 Heather Mosquera MD 6545 [facility] 150 [place] [address] Assigned PCP 01/06/23 Fawad York MD 909 [place], [place] [address] Assigned Musculoskeletal Provider 04/27/23 06/25/23 documented as of this encounter
--- OUTSIDE RECORDS SUMMARY | 2023-12-25 08:16 | XMS_ITS | Encounter Summary ---
Author Organization [place] Address [address] [place] [address] Care Team Providers Care Windows Server Support Technician Name Role Phone Shahida Sutton APRN FURNACE HAND Primary Care Provi ford Unavailable Shahida Sutton APRN FURNACE HAND Unavailable Un available Carolynn Ramon RN Unavailable [phone] Augustine Callaway MD Unavailable Brady Lion MD Unavailable Un available Nima France-C Unavailable Camille Chandler PA-C Unavailable [phone] Anabela Barakat APRN FURNACE HAND Unavailable Nima France PA-C Unavailable Basilio Morillo DO Unavailable [phone] Fawad York MD Unavailable Roopa Almonte MD Unavailable [phone] Augustine Callaway MD Unavailable Maryse Burton PA-C Unavailable Marquita Starkey MD Unavailable [phone] Roopa Almonte MD Unavailable Griffin Joshi MD Unavailable Rina Magallon RN Unavailable [phone] Paula Reza MD Primary Care Provider [phone] Griffin Joshi MD Unavailable Roopa Almonte MD Unavailable [phone] Basilio Morillo DO Unavailable Lydia Bernstein-C Unavailable Rosa Maria Love Unavailable [phone] Augustine Callaway MD Unavailable Paula Reza MD Unavailable Keerthi Miner APRN FURNACE HAND Unavailable [phone] Herman, Shahida Cummings APRN FURNACE HAND Unavailable Un available Porsha Michaels APRN FURNACE HAND Unavailable [phone] Paula Reza MD Unavailable Shahida Sutton APRN FURNACE HAND Unavailable Un available Daylin Ludwig Unavailable [phone] Laurel Velasquez MD Unavailable [phone] Daylin Ludwig Unavailable [phone] Paula Reza MD Unavailable Porsha Michaels APRN FURNACE HAND Unavailable [phone] Laurel Velasquez MD Unavailable [phone] Shahida Sutton SALESPERSON [employer] PET [employer]PPLIES FURNACE HAND Unavailable Un available Marilin Montaño FURNACE HAND Unavailable [phone] Esha Dewitt MD Unavailable [phone] EvelineHeather MD Unavailable [phone] Paula Reza MD Unavailable Esha Dewitt MD Unavailable [phone] Valdo Escamilla PA-C Unavailable [phone] Nohelia Abarca PA-C Unavailable [phone] Heather Mosquera MD Unavailable Fawad York MD Unavailable [phone] Reason for Visit * Reason Comments Medication Refill Encounter Details Date Type Department Care Team (Late st Contact Info) Description 09/03/2019 Refill [facility] [address] [place] [id number] Vesta Aguayo PA-C [id number] [place] [address] Medication Refill Social History Tobacco Use Types [...] Out COVID-19 02/15/2020 02/15/2020 02/16/2020 2:32 PM [facility] Rule Out COVID-19 01/05/2021 01/05/2021 01/06/2021 12:57 PM CDT ESBL 01/05/2021 01/05/2021 Rule Out COVID-19 06/30/2021 06/30/202107/01/2021 9:34 AM CDT Rule Out COVID-19 07/25/2021 07/25/2021 07/25/2021 8:02 PM CDT Assessment Noted Time PHQ-9 Depression Total Score: 7 08/13/19 20 1:22 PM CDT documented as of this encounter Care Teams Windows Server Support Technician Relationship Specialty Start Date End Date Shahida Sutton APRN FURNACE HAND PCP - General Nurse Practitioner 08/17/14 08/04/21 Paula Reza MD [address] [place] [address] PCP - General Internal Medicine 08/05/21 Shahida Sutton APRN FURNACE HAND Assigned PCP 07/12/14 09/30/21 Carolynn Ramon RN Personal Advocate & Liaison (PAL) 12/17/18 08/07/21 [place] [address] [address] [address] [place] [address] Assigned Musculoskeletal Provider 12/26/19 08/21/20 Brady Lion MD Assigned Heart and Vascular Provider 12/26/19 08/14/20 Nima France PA-C [address] [place] [address] Assigned Surgical Provider 05/19/20 08/21/20 Camille Chandler PA-C [address] [place] [address] Assigned Neuroscience Provider 05/19/20 09/14/20 StoesAnabela win APRN CNP [address] [place] [address] Assigned Heart and Vascular Provider 08/15/20 08/05/21 Nima France PA-C 6545 [facility] 450 [place] [address] Assigned Musculoskeletal Provider 08/22/20 11/13/20 [place] [address] [facility] [place] [address]39 Assigned Musculoskeletal Provider 11/14/20 12/04/20 Fawad York MD [address] [place], [place] 8[address] Assigned Musculoskeletal Provider 12/05/20 02/05/21 Roopa Almonte MD [address] [facility] [facility] 200 [place], [place] [address] Endocrinology, Diabetes, and Metabolism 01/19/21 [place] [address] [facility] 300 [place] [address] Assigned Musculoskeletal Provider 02/06/21 09/16/21 Maryse Burton PA-C 5200 [place] [address] Physician Nuclear Medical Tech Dermatology 04/14/21 Marquita Starkey MD [address] [facility] 200 [place], [place] [address] Internal Medicine 05/06/21 05/06/21 Roopa Almonte MD [address] [facility] 200 [place] [address] Hospitalist Endocrinology, Diabetes, and Metabolism 05/30/21 Griffin Joshi MD [address] [place] [address] Cardiovascular Disease 07/25/21 Rina Magallon, RN Lead Sail Finisher Machine 07/29/21 07/11/22 Griffin Joshi MD [address] [facility] [address] [place] [address] Assigned Heart and Vascular Provider 08/06/21 10/07/21 Roopa Almonte MD [address] [facility] 200 [place] [address] Assigned Endocrinology Provider 09/10/21 [place] [address] [facility] [address] Assigned Musculoskeletal Provider 09/17/21 10/14/21 Lydia Bernstein PA-C [address] [facility] [address] [place] [address] Assigned PCP 10/01/21 10/21/21 Rosa Maria Love CHW Community Health Worker 10/06/21 07/11/22 [place] [address] [facility] 300 [place] [address] Assigned Musculoskeletal Provider 10/15/21 04/26/23 Paula Reza MD [address] [place] [address] Assigned PCP 10/22/21 12/23/21 Keerthi Miner APRN FURNACE HAND [address] [place] [address] Assigned Heart and Vascular Provider 10/08/21 02/10/22 Shahida Sutton APRN FURNACE HAND Assigned PCP 12/24/21 03/24/22 Porsha Michaels APRN FURNACE HAND [address] [place] [address] Assigned Heart and Vascular Provider 02/11/22 05/12/22 Paula Reza MD [address] [place] [address] Assigned PCP 03/25/22 04/07/22 Shahida Sutton APRN FURNACE HAND [address] [place] [address] Assigned PCP 04/08/22 06/30/22 Daylin Ludwig, MIKI [facility] [address] [place] [address] Cardiac Rehabilitation Therapist 05/16/23 Laurel Velasquez MD [address] [place] [address] Assigned Heart and Vascular Provider 05/13/22 06/30/22 Daylin Ludwig EP [facility] [address] [place], [place] [address] Cardiac Rehabilitation Therapist 06/08/22 06/09/23 Paula Reza MD [address] [place] [address] Assigned PCP 07/01/22 07/07/22 Porsha Michaels APRN FURNACE HAND [address] [place] [address] Assigned Heart and Vascular Provider 07/01/22 07/07/22 Laurel Velasquez MD [address] [place] [address] Assigned Heart and Vascular Provider 07/08/22 08/04/22 Shahida Sutton APRN FURNACE HAND Assigned PCP 07/08/22 09/08/22 Marilin Montaño, FURNACE HAND [address] [place] [address] Assigned Heart and Vascular Provider 08/05/22 Esha Dewitt MD [address] [place] [address] 36 [place], [place] [address] Gastroenterology 09/06/22 Heather Mosquera MD [address] [place] [address] Internal Medicine 09/06/22 Paula Reza MD [address] [place] [address] Assigned PCP 09/09/22 01/05/23 Esha Dewitt MD 420 [facility] 36 [place] [address] Assigned Gastroenterology Provider 09/23/22 Valdo Escamilla PA-C 6363 [facility] 103 [place] [address] Assigned Neuroscience Provider 09/30/22 Nohelia Abarca PA-C 2450 [place] [address] Physician Nuclear Medical Tech Gastroenterology 10/03/22 Heather Mosquera MD 6545 [facility] 150 [place] [address] Assigned PCP 01/06/23 Fawad York MD 909 [place] [address] Assigned Musculoskeletal Provider 04/27/23 06/25/23 documented as of this encounter
--- OUTSIDE RECORDS SUMMARY | 2023-12-25 08:16 | XMS_ITS | Encounter Summary ---
Author Organization [place] Address [address] [place] [address] Care Team Providers Care Manager Of Case Management Name Role Phone Shahida Sutton APRN LEAD PROGRAMMER Primary Care Provi ford Unavailable Shahida Sutton APRN LEAD PROGRAMMER Unavailable Un available Carolynn Ramon RN Unavailable [phone] Augustine Callaway MD Unavailable Brady Lion MD Unavailable Un available Nima France-C Unavailable Camille Chandler PA-C Unavailable [phone] Anabela Barakat APRN LEAD PROGRAMMER Unavailable Nima France PA-C Unavailable Basilio Morillo DO Unavailable [phone] Fawad York MD Unavailable [phone] Roopa Almonte MD Unavailable Augustine Callaway MD Unavailable Maryse Burton PA-C Unavailable Marquita Starkey MD Unavailable Roopa Almonte MD Unavailable Griffin Joshi MD Unavailable Rina Magallon RN Unavailable [phone] Paula Reza MD Primary Care Provider [phone] Griffin Joshi MD Unavailable Roopa Almonte MD Unavailable [phone] Basilio Morillo DO Unavailable Lydia Bernstein-C Unavailable Rosa Maria Lvoe Unavailable [phone] Augustine Callaway MD Unavailable Paula Reza MD Unavailable Keerthi Miner APRN LEAD PROGRAMMER Unavailable [phone] Herman, Shahida Cummings APRN LEAD PROGRAMMER Unavailable Un available Porsha Michaels APRN LEAD PROGRAMMER Unavailable [phone] Paula Reza MD Unavailable Shahida Sutton APRN LEAD PROGRAMMER Unavailable Un available Daylin Ludwig Unavailable [phone] Laurel Velasquez MD Unavailable [phone] Daylin Ludwig Unavailable [phone] Paula Reza MD Unavailable Porsha Michaels APRN LEAD PROGRAMMER Unavailable [phone] Laurel Velasquez MD Unavailable [phone] Shahida Sutton HEARING AIDE TECHNICIAN LEAD PROGRAMMER Unavailable Un available Marilin Montaño LEAD PROGRAMMER Unavailable [phone] Esha Dewitt MD Unavailable [phone] EvelineHeather MD Unavailable [phone] Paula Reza MD Unavailable Esha Dewitt MD Unavailable [phone] Andi Valdo Desouza PA-C Unavailable Nohelia Abarca PA-C Unavailable [phone] Heather Mosquera MD Unavailable Fawad York MD Unavailable Encounter Details Date Type Department Care Team (Late st Contact Info) Description 06/27/[address] [phone] Shahida Sutton APRN LEAD PROGRAMMER Social History Tobacco Use Types Packs/Day Years [...] Out COVID-19 02/15/2020 02/15/2020 02/16/2020 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 Rule Out COVID-19 01/05/2021 01/05/2021 01/06/2021 12:57 PM CDT ESBL 01/05/2021 01/05/2021 Rule Out COVID-19 06/30/2021 06/30/2021 07/01/2021 9:34 AM CDT Rule Out COVID-19 07/25/2021 07/25/2021 07/25/2021 8:02 PM CDT Assessment Noted Time PHQ-9 Depression Total Score: 6 12/21/19 18 7:06 AM CDT documented as of this encounter Care Teams Manager Of Case Management Relationship Specialty Start Date End Date Shahida Sutton APRN LEAD PROGRAMMER PCP - General Nurse Practitioner 08/17/14 08/04/21 Paula Reza MD [address] [facility] 200 [place] [address] PCP - General Internal Medicine 08/05/21 Shahida Sutton APRN LEAD PROGRAMMER Assigned PCP 07/12/14 09/30/21 Carolynn Ramon, KASIE Personal Advocate & Liaison (PAL) 12/17/18 08/07/21 [place] [address] [place] [address] Assigned Musculoskeletal Provider 12/26/19 08/21/20 Brady Lion MD Assigned Heart and Vascular Provider 12/26/19 08/14/20 Nima France PA-C [address] [facility] [address] [place] [address] Assigned Surgical Provider 05/19/20 08/21/20 Camille Chandler PA-C 6545 [facility] [address] [place] [address] Assigned Neuroscience Provider 05/19/20 09/14/20 Anabela Barakat APRN LEAD PROGRAMMER 1700 [place] [address] Assigned Heart and Vascular Provider 08/15/20 08/05/21 Nima France PA-C 65[address] [facility] [address] [place] [address] Assigned Musculoskeletal Provider 08/22/20 11/13/20 [place] [address] [facility] [place] [address] Assigned Musculoskeletal Provider 11/14/20 12/04/20 Fawad York MD 909 [place], [place] 226195 Assigned Musculoskeletal Provider 12/05/20 02/05/21 Roopa Almonte MD [address] [facility] 200 [place] [address] Endocrinology, Diabetes, and Metabolism 01/19/21 [place] [address] [facility] 300 [place] [address] Assigned Musculoskeletal Provider 02/06/21 09/16/21 Maryse Burton, PA-C 5200 [place] [address] Physician Protection Consultant Dermatology 04/14/21 Marquita Starkey MD [address] [facility] 200 [place] [address] Internal Medicine 05/06/21 05/06/21 Roopa Almonte MD [address] [facility] 200 [place] [address] Hospitalist Endocrinology, Diabetes, and Metabolism 05/30/21 Griffin Joshi MD [address] [facility] [address] [place] [address] Cardiovascular Disease 07/25/21 Rina Magallon, RN Lead Fruit Shipper 07/29/21 07/11/22 Griffin Joshi MD [address] [place] [address]235 Assigned Heart and Vascular Provider 08/06/21 10/07/21 Roopa Almonte MD [address] [facility] 200 [place], [place] [address] Assigned Endocrinology Provider 09/10/21 [place] [address] [facility] [place] 758939 Assigned Musculoskeletal Provider 09/17/21 10/14/21 Lydia Bernstein PA-C [address] [place] [address]475 Assigned PCP 10/01/21 10/21/21 Rosa Maria Love CHW Community Health Worker 10/06/21 07/11/22 [place] [address] [facility] [address] [place] [address] Assigned Musculoskeletal Provider 10/15/21 04/26/23 Paula Reza MD [address] [facility] 200 [place] [address] Assigned PCP 10/22/21 12/23/21 Keerthi Miner APRN LEAD PROGRAMMER [address] [place] [address] Assigned Heart and Vascular Provider 10/08/21 02/10/22 Shahida Sutton APRN LEAD PROGRAMMER Assigned PCP 12/24/21 03/24/22 Porsha Michaels APRN LEAD PROGRAMMER [address] [place] [address] Assigned Heart and Vascular Provider 02/11/22 05/12/22 Paula Reza MD [address] [place] [address] Assigned PCP 03/25/22 04/07/22 Shahida Sutton APRN LEAD PROGRAMMER [address] [place] [address] Assigned PCP 04/08/22 06/30/22 Daylin Ludwig, EP [facility] [address] [place] [address] Cardiac Rehabilitation Therapist 05/16/23 Laurel Velasquez MD [address] [place] [address] Assigned Heart and Vascular Provider 05/13/22 06/30/22 Daylin Ludwig, EP [facility] [address] [place] [address] Cardiac Rehabilitation Therapist 06/08/22 06/09/23 Paula Reza MD [address] [place] [address] Assigned PCP 07/01/22 07/07/22 Porsha Michaels APRN LEAD PROGRAMMER [address] [place] [address] Assigned Heart and Vascular Provider 07/01/22 07/07/22 Laurel Velasquez MD [address] [place] [address] Assigned Heart and Vascular Provider 07/08/22 08/04/22 Shahida Sutton APRN LEAD PROGRAMMER Assigned PCP 07/08/22 09/08/22 Marilin Montaño, LEAD PROGRAMMER [address] [place] [address] Assigned Heart and Vascular Provider 08/05/22 Esha Dewitt MD [address] [place] [address] 719735 Gastroenterology 09/06/22 Heather Mosquera MD [address] [facility] 150 [place] [address] Internal Medicine 09/06/22 Paula Reza MD [address] [place], [place] [address] Assigned PCP 09/09/22 01/05/23 Esha Dewitt MD [address] [address] Assigned Gastroenterology Provider 09/23/22 Valdo Escamilla PA-C [address] [facility] [address] [place] [address] Assigned Neuroscience Provider 09/30/22 Nohelia Abarca PA-C 2450 [place], [place] 7748[address] Physician Protection Consultant Gastroenterology 10/03/22 Heather Mosquera MD [address] [place] [address]95 Assigned PCP 01/06/23 Fawad York MD 9[address] [place], [place] [address] Assigned Musculoskeletal Provider 04/27/23 06/25/23 documented as of this encounter
--- OUTSIDE RECORDS SUMMARY | 2023-12-25 08:16 | XMS_ITS | Encounter Summary ---
Author Organization [place] Address [address] [place] [address] Care Team Providers Care Granulator 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 Name Role Phone Shahida Sutton APRN VACUUM COOKER OPERATOR Primary Care Provi ford Unavailable Shahida Sutton APRN VACUUM COOKER OPERATOR Unavailable Un available Carolynn Ramon RN Unavailable Augustine Callaway MD Unavailable Brady Lion MD Unavailable Un available Nima France-C Unavailable Camille Chandler PA-C Unavailable [phone] Anabela Barakat APRN VACUUM COOKER OPERATOR Unavailable Nima France PA-C Unavailable Basilio Morillo DO Unavailable [phone] Fawad York MD Unavailable [phone] Roopa Almonte MD Unavailable [phone] Augustine Callaway MD Unavailable Maryse Burton PA-C Unavailable [phone] Marquita Starkey MD Unavailable Roopa Almonte MD Unavailable Griffin Joshi MD Unavailable Rina Magallon RN Unavailable [phone] Paula Reza MD Primary Care Provider [phone] Griffin Joshi MD Unavailable Roopa Almonte MD Unavailable [phone] Basilio Morillo DO Unavailable Lydia Bernstein-C Unavailable Rosa Maria Love Unavailable [phone] Augustine Callaway MD Unavailable Paula Reza MD Unavailable Keerthi Miner APRN VACUUM COOKER OPERATOR Unavailable [phone] Herman, Shahida Cummings APRN VACUUM COOKER OPERATOR Unavailable Un available Porsha Michaels APRN VACUUM COOKER OPERATOR Unavailable [phone] Paula Reza MD Unavailable Shahida Sutton APRN VACUUM COOKER OPERATOR Unavailable Un available Daylin Ludwig Unavailable [phone] Laurel Velasquez MD Unavailable [phone] Daylin Ludwig Unavailable [phone] Paula Reza MD Unavailable Porsha Michaels APRN VACUUM COOKER OPERATOR Unavailable [phone] Laurel Velasquez MD Unavailable [phone] Shahida Sutton CAR DETAILER VACUUM COOKER OPERATOR Unavailable Un available Marilin Montaño VACUUM COOKER OPERATOR Unavailable [phone] Esha Dewitt MD Unavailable [phone] EvelineHeather MD Unavailable [phone] Paula Reza MD Unavailable Esha Dewitt MD Unavailable [phone] Valdo Escamilla PA-C Unavailable [phone] Nohelia bAarca PA-C Unavailable [phone] Heather Mosquera MD Unavailable Fawad York MD Unavailable [phone] Encounter Details Date Type Department Care Team (Late st Contact Info) Description 07/16/2019 MyC Medical Advice [address] [phone] Angela Marcelo, CHASE Social History [...] Out COVID-19 02/15/2020 02/15/2020 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/2020 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 Rule Out COVID-19 01/05/2021 01/05/2021 01/06/2021 12:57 PM CDT ESBL 01/05/2021 01/05/2021 Rule Out COVID-19 06/30/2021 06/30/2021 07/01/2021 9:34 AM CDT Rule Out COVID-19 07/25/2021 07/25/2021 07/25/2021 8:02 PM CDT Assessment Noted Time PHQ-9 Depression Total Score: 6 12/20/ 18 7:06 AM CDT documented as of this encounter Care Teams Granulator 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 Relationship Specialty Start Date End Date Shahida Sutton APRN VACUUM COOKER OPERATOR PCP - General Nurse Practitioner 08/17/14 08/04/21 Paula Reza MD [address] [place] [address] PCP - General Internal Medicine 08/05/21 Shahida Sutton APRN VACUUM COOKER OPERATOR Assigned PCP 07/12/14 09/30/21 Carolynn Ramon, KASIE Personal Advocate & Liaison (PAL) 12/17/18 08/07/21 [place] [address] [place] [address] Assigned Musculoskeletal Provider 12/26/19 08/21/20 Brady Lion MD Assigned Heart and Vascular Provider 12/26/19 08/14/20 Nima France PA-C [address] [place] [address] Assigned Surgical Provider 05/19/20 08/21/20 Camille Chandler PA-C 6545 [facility] S [facility] [address] [place] [address] Assigned Neuroscience Provider 05/19/20 09/14/20 Anabela Barakat APRN VACUUM COOKER OPERATOR 1700 [place] [address] Assigned Heart and Vascular Provider 08/15/20 08/05/21 Nima France PA-C [address] [place] [address] Assigned Musculoskeletal Provider 08/22/20 11/13/20 [place] [address] [facility] [place] [address] Assigned Musculoskeletal Provider 11/14/20 12/04/20 Fawad York MD 909 [place] [address] Assigned Musculoskeletal Provider 12/05/20 02/05/21 Roopa Almonte MD [address] [facility] 200 [place] [address] Endocrinology, Diabetes, and Metabolism 01/19/21 [place] [address] [facility] 300 [place] [address] Assigned Musculoskeletal Provider 02/06/21 09/16/21 Maryse Burton PA-C [address] [place] [address] Physician Motorcycle Designer Dermatology 04/14/21 Marquita Starkey MD [address] [facility] 200 [place] [address] Internal Medicine 05/06/21 05/06/21 Roopa Almonte MD [address] [facility] 200 [place] [address] Hospitalist Endocrinology, Diabetes, and Metabolism 05/30/21 Griffin Joshi MD 6405 [facility] [address] [place] [address] Cardiovascular Disease 07/25/21 Rina Magallon, RN Lead Roundhouse Firer/Fireman 07/29/21 07/11/22 Griffin Joshi MD [address] [place] [address] Assigned Heart and Vascular Provider 08/06/21 10/07/21 Roopa Almonte MD [address] [facility] 200 [place], [place] [address] Assigned Endocrinology Provider 09/10/21 [place] [address] [facility] [place] [address] Assigned Musculoskeletal Provider 09/17/21 10/14/21 Lydia Bernstein PA-C [address] [place] [address] Assigned PCP 10/01/21 10/21/21 Rosa Maria Love CHW Community Health Worker 10/06/21 07/11/22 [place] [address] [address] [place] [address] Assigned Musculoskeletal Provider 10/15/21 04/26/23 Paula Reza MD [address] [facility] 200 [place] [address] Assigned PCP 10/22/21 12/23/21 Keerthi Miner APRN VACUUM COOKER OPERATOR [address] [place] [address] Assigned Heart and Vascular Provider 10/08/21 02/10/22 Shahida Sutton APRN VACUUM COOKER OPERATOR Assigned PCP 12/24/21 03/24/22 Porsha Michaels APRN VACUUM COOKER OPERATOR [address] [place] [address] Assigned Heart and Vascular Provider 02/11/22 05/12/22 Paula Reza MD [address] [place] [address] Assigned PCP 03/25/22 04/07/22 Shahida Sutton APRN VACUUM COOKER OPERATOR [address] [place] [address] Assigned PCP 04/08/22 06/30/22 Daylin Ludwig, EP [facility] [address] [place] [address] Cardiac Rehabilitation Therapist 05/16/23 Laurel eVlasquez MD [address] [place] [address] Assigned Heart and Vascular Provider 05/13/22 06/30/22 Daylin Ludwig, MIKI [facility] [address] [place] [address] Cardiac Rehabilitation Therapist 06/08/22 06/09/23 Paula Reza MD [address] [place] [address] Assigned PCP 07/01/22 07/07/22 Porsha Michaels APRN VACUUM COOKER OPERATOR [address] [place] [address] Assigned Heart and Vascular Provider 07/01/22 07/07/22 Laurel Velasquez MD [address] [place] [address] Assigned Heart and Vascular Provider 07/08/22 08/04/22 Shahida Sutton APRN VACUUM COOKER OPERATOR Assigned PCP 07/08/22 09/08/22 Marilin Montaño, VACUUM COOKER OPERATOR [address] [place] [address] Assigned Heart and Vascular Provider 08/05/22 Esha Dewitt MD [address] 7180[address] Gastroenterology 09/06/22 Heather Mosquera MD [address] [facility] 150 [place] [address] Internal Medicine 09/06/22 Paula Reza MD [address] [place], [place] [address] Assigned PCP 09/09/22 01/05/23 Esha Dewitt MD 420 [facility] 36 [place] [address] Assigned Gastroenterology Provider 09/23/22 Valdo Escamilla PA-C 6363 [facility] [address] [place] [address] Assigned Neuroscience Provider 09/30/22 Nohelia Abarca PA-C [address] [place] [address] Physician Motorcycle Designer Gastroenterology 10/03/22 Heather Mosquera MD [address] [place] [address] Assigned PCP 01/06/23 Fawad York MD 909 [place], [place] 3[address] Assigned Musculoskeletal Provider 04/27/23 06/25/23 documented as of this encounter
--- OUTSIDE RECORDS SUMMARY | 2023-12-25 08:16 | XMS_ITS | Encounter Summary ---
Author Organization [facility] Address [address] [place] [address] Care Team Providers Care Dealer Development Manager Name Role Phone Shahida Sutton APRN PROCESS DEVELOPER Primary Care Provi ford Unavailable Shahida Sutton APRN PROCESS DEVELOPER Unavailable Un available Carolynn Ramon RN Unavailable Augustine Callaway MD Unavailable Brady Lion MD Unavailable Un available Nima France-C Unavailable Camille Chandler PA-C Unavailable [phone] Anabela Barakat APRN PROCESS DEVELOPER Unavailable Nima France PA-C Unavailable Basilio Morillo DO Unavailable Fawad York MD Unavailable Roopa Almonte MD Unavailable [phone] Augustine Callaway MD Unavailable Maryse Burton PA-C Unavailable Marquita Starkey MD Unavailable [phone] Roopa Almonte MD Unavailable Griffin Joshi MD Unavailable Rina Magallon RN Unavailable [phone] Paula Reza MD Primary Care Provider [phone] Griffin Joshi MD Unavailable Roopa Almonte MD Unavailable [phone] Basilio Morillo DO Unavailable Lydia Bernstein-C Unavailable Rosa Maria Love Unavailable [phone] Augustine Callaway MD Unavailable Paula Reza MD Unavailable Keerthi Miner APRN PROCESS DEVELOPER Unavailable [phone] Herman, Shahida Cummings APRN PROCESS DEVELOPER Unavailable Un available Porsha Michaels APRN PROCESS DEVELOPER Unavailable [phone] Paula Reza MD Unavailable Shahida Sutton APRN PROCESS DEVELOPER Unavailable Un available Daylin Ludwig Unavailable [phone] Laurel Velasquez MD Unavailable [phone] Daylin Ludwig Unavailable [phone] Paula Reza MD Unavailable Porsha Michaels APRN PROCESS DEVELOPER Unavailable [phone] Laurel Velasquez MD Unavailable [phone] Shahida Sutton CASE MANAGEMENT ASSOCIATE PROCESS DEVELOPER Unavailable Un available Marilin Montaño PROCESS DEVELOPER Unavailable [phone] Esha Dewitt MD Unavailable [phone] EvelineHeather MD Unavailable [phone] Paula Reza MD Unavailable Esha Dewitt MD Unavailable [phone] Andi Valdo Desouza PA-C Unavailable Nohelia Abarca PA-C Unavailable [phone] Heather Mosquera MD Unavailable [phone] Fawad York MD Unavailable Reason for Visit * Reason Comments Medication Refill Encounter Details Date Type Department Care Team (Late st Contact Info) Description 09/17/[address] [address] Shahida Sutton APRN PROCESS DEVELOPER Medication Refill Social History Tobacco Use Types [...] 09/17/2018 10:36 AM CDT Prescription approved per [facility] Refill Protocol. Raven Perry RN on 09/17/2018 [...] Out COVID-19 02/15/2020 02/15/2020 02/16/2020 2:32 PM LAB COURIER Rule Out COVID-19 01/05/2021 01/05/2021 01/06/2021 12:57 PM CDT ESBL 01/05/2021 01/05/2021 Rule Out COVID-19 06/30/2021 06/30/2021 07/01/2021 9:34 AM CDT Rule Out COVID-19 07/25/2021 07/25/2021 07/25/2021 8:02 PM CDT Assessment Noted Time PHQ-9 Depression Total Score: 6 12/21/19 18 7:06 AM CDT documented as of this encounter Care Teams Dealer Development Manager Relationship Specialty Start Date End Date Shahida Sutton APRN PROCESS DEVELOPER PCP - General Nurse Practitioner 08/17/14 08/04/21 Paula Reza MD [address] [facility] [address] [place] [address] PCP - General Internal Medicine 08/05/21 Shahida Sutton APRN PROCESS DEVELOPER Assigned PCP 07/12/14 09/30/21 Carolynn Ramon, KASIE Personal Advocate & Liaison (PAL) 12/17/18 08/07/21 [place] [address] [place] [address] Assigned Musculoskeletal Provider 12/26/19 08/21/20 Brady Lion MD Assigned Heart and Vascular Provider 12/26/19 08/14/20 Nima France PA-C [address] [place] [address] Assigned Surgical Provider 05/19/20 08/21/20 Camille Chandler PA-C [address] [place] [address] Assigned Neuroscience Provider 05/19/20 09/14/20 Anabela Barakat APRN PROCESS DEVELOPER [address] [place] [address] Assigned Heart and Vascular Provider 08/15/20 08/05/21 Nima France PA-C [address] [facility] [address] [place] [address] Assigned Musculoskeletal Provider 08/22/20 11/13/20 [place] [address] [facility] [place] [address] Assigned Musculoskeletal Provider 11/14/20 12/04/20 Fawad York MD [address] [place], [place] [address] Assigned Musculoskeletal Provider 12/05/20 02/05/21 Roopa Almonte MD [address] [facility] [address] [place] [address] Endocrinology, Diabetes, and Metabolism 01/19/21 [place] [address] [facility] [address] [place] [address] Assigned Musculoskeletal Provider 02/06/21 09/16/21 Maryse Burton PA-C [address] [place] [address] Physician Fractionation Supervisor Dermatology 04/14/21 Marquita Starkey MD [address] [facility] [address] [place] [address] Internal Medicine 05/06/21 05/06/21 Roopa Almonte MD [address] [facility] [address] [place] [address] Hospitalist Endocrinology, Diabetes, and Metabolism 05/30/21 Griffin Joshi MD [address] [place] [address] Cardiovascular Disease 07/25/21 Rina Magallon, RN Lead Writing Center Director 07/29/21 07/11/22 Griffin Joshi MD [address] [place] [address] Assigned Heart and Vascular Provider 08/06/21 10/07/21 Roopa Almonte MD [address] [place] [address] 200 [place], [place] [address] Assigned Endocrinology Provider 09/10/21 [place] [address] [facility] [place] [id number] Assigned Musculoskeletal Provider 09/17/21 10/14/21 Lydia Bernstein PA-C [address] [place] [id number] Assigned PCP 10/01/21 10/21/21 Rosa Maria Love Cristina Community Health Worker 10/06/21 07/11/22 [place] [address] [facility] [address] [place], [place] [address] Assigned Musculoskeletal Provider 10/15/21 04/26/23 Paula Reza MD [address] [facility] [address] [place], [place] [address] Assigned PCP 10/22/21 12/23/21 Keerthi Miner APRN PROCESS DEVELOPER [address] [place] [id number] Assigned Heart and Vascular Provider 10/08/21 02/10/22 Shahida Sutton APRN PROCESS DEVELOPER Assigned PCP 12/24/21 03/24/22 Porsha Michaels APRN PROCESS DEVELOPER [address] [place] [address] Assigned Heart and Vascular Provider 02/11/22 05/12/22 Paula Reza MD [address] [place] [address] Assigned PCP 03/25/22 04/07/22 Shahida Sutton, CASE MANAGEMENT ASSOCIATE PROCESS DEVELOPER [address] [place] [address] Assigned PCP 04/08/22 06/30/22 Daylin Ludwig, MIKI [facility] [address] [place] [address] Cardiac Rehabilitation Therapist 05/16/23 Laurel Velasquez MD [address] [place] [address] Assigned Heart and Vascular Provider 05/13/22 06/30/22 Daylin Ludwig EP [facility] [address] [place] [address] Cardiac Rehabilitation Therapist 06/08/22 06/09/23 Paula Reza MD [address] [place] [address] Assigned PCP 07/01/22 07/07/22 Porsha Michaels APRN PROCESS DEVELOPER [address] [place] [address] Assigned Heart and Vascular Provider 07/01/22 07/07/22 Laurel Velasquez MD [address] [place] [address] Assigned Heart and Vascular Provider 07/08/22 08/04/22 Shahida Sutton APRN PROCESS DEVELOPER Assigned PCP 07/08/22 09/08/22 Marilin Montaño, PROCESS DEVELOPER [address] [place] [address] Assigned Heart and Vascular Provider 08/05/22 Esha Dewitt MD [address] [facility] 36 [place] [address] Gastroenterology 09/06/22 Heather Mosquera MD [address] [place] [address] Internal Medicine 09/06/22 Paula Reza MD [address] [facility] 200 [place] [address] Assigned PCP 09/09/22 01/05/23 Esha Dewitt MD [address] [facility] 36 [place] [address] Assigned Gastroenterology Provider 09/23/22 Valdo Escamilla PA-C [address] [facility] [address] [place], [place] [address] Assigned Neuroscience Provider 09/30/22 Nohelia Abarca PA-C [address] [place], [place] [address] Physician Fractionation Supervisor Gastroenterology 10/03/22 Heather Mosquera MD [address] [address] Assigned PCP 01/06/23 Fawad York MD [address] [place], [place] [address] Assigned Musculoskeletal Provider 04/27/23 06/25/23 documented as of this encounter
--- OUTSIDE RECORDS SUMMARY | 2023-12-25 08:16 | XMS_ITS | Encounter Summary ---
Author Organization [facility] Address [address] [place] [address] Care Team Providers Care Fishing Gear Mechanic Name Role Phone Shahida Sutton APRN FINAL CLEANER Primary Care Provi ford Unavailable Shahida Sutton APRN FINAL CLEANER Unavailable Un available Carolynn Ramon RN Unavailable [phone] Augustine Callaway MD Unavailable Brady Lion MD Unavailable Un available Niam France-C Unavailable Camille Chandler PA-C Unavailable [phone] Anabela Barakat APRN FINAL CLEANER Unavailable Nima France PA-C Unavailable Basilio Morillo DO Unavailable Fawad York MD Unavailable Roopa Almonte MD Unavailable Augustine Callaway MD Unavailable Maryse Burton PA-C Unavailable Marquita Starkey MD Unavailable Roopa Almonte MD Unavailable Griffin Joshi MD Unavailable Rina Magallon RN Unavailable [phone] Paula Reza MD Primary Care Provider [phone] Griffin Joshi MD Unavailable Roopa Almonte MD Unavailable [phone] Basilio Morillo DO Unavailable Lydia Bernstein-C Unavailable Rosa Maria Love Unavailable [phone] Augustine Callaway MD Unavailable Paula Reza MD Unavailable Keerthi Miner APRN FINAL CLEANER Unavailable [phone] Herman, Shahida Cummings APRN FINAL CLEANER Unavailable Un available Porsha Michaels APRN FINAL CLEANER Unavailable [phone] Paula Reza MD Unavailable Shahida Sutton APRN FINAL CLEANER Unavailable Un available Daylin Ludwig Unavailable [phone] Laurel Velasquez MD Unavailable [phone] Daylin Ludwig Unavailable [phone] Paula Reza MD Unavailable Porsha Michaels APRN FINAL CLEANER Unavailable [phone] Laurel Velasquez MD Unavailable [phone] Shahida Sutton PHOTOGRAPHIC SPECIALIST FINAL CLEANER Unavailable Un available Marilin Montaño FINAL CLEANER Unavailable [phone] Esha Dewitt MD Unavailable [phone] EvelineHeather MD Unavailable [phone] Paula Reza MD Unavailable Esha Dewitt MD Unavailable [phone] Andi Valdo Desouza PA-C Unavailable Nohelia Abarca PA-C Unavailable [phone] Heather Mosquera MD Unavailable Fawad York MD Unavailable Encounter Details Date Type Department Care Team (Late st Contact Info) Description 03/11/2019 MyC Medical Advice [facility] [place] [address] [place] [address] [address] [place] [address] Aneta Campbell APRN [facility] [address] [place] [address] 200 [place], [place] [id number] Social History Tobacco Use Types Packs/Day Years [...] Out COVID-19 02/15/2020 02/15/2020 02/16/2020 2:32 PM SHIPWRIGHT Rule Out COVID-19 01/05/2021 01/05/2021 01/06/2021 12:57 PM CDT ESBL 01/05/2021 01/05/2021 Rule Out COVID-19 06/30/2021 06/30/2021 07/01/2021 9:34 AM CDT Rule Out COVID-19 07/25/2021 07/25/2021 07/25/2021 8:02 PM CDT Assessment Noted Time PHQ-9 Depression Total Score: 6 12/21/19 18 7:06 AM CDT documented as of this encounter Care Teams Fishing Gear Mechanic Relationship Specialty Start Date End Date Shahida Sutton APRN FINAL CLEANER PCP - General Nurse Practitioner 08/17/14 08/04/21 Paula Reza MD [address] [facility] [address] [place] [address] PCP - General Internal Medicine 08/05/21 Shahida Sutton APRN FINAL CLEANER Assigned PCP 07/12/14 09/30/21 Carolynn Ramon, KASIE Personal Advocate & Liaison (PAL) 12/17/18 08/07/21 [place] [address] [place] [address] Assigned Musculoskeletal Provider 12/26/19 08/21/20 Brady Lion MD Assigned Heart and Vascular Provider 12/26/19 08/14/20 Nima France PA-C [address] [facility] [address] [place] [address] Assigned Surgical Provider 05/19/20 08/21/20 Camille Chandler PA-C [address] [place] [address] Assigned Neuroscience Provider 05/19/20 09/14/20 Anabela Barakat APRN FINAL CLEANER [address] [place] [address] Assigned Heart and Vascular Provider 08/15/20 08/05/21 Nima France PA-C [address] [facility] [address] [place], [place] [address] Assigned Musculoskeletal Provider 08/22/20 11/13/20 [place] [address] [place], [place] [address] Assigned Musculoskeletal Provider 11/14/20 12/04/20 Fawad York MD [address] [place], [place] [address] Assigned Musculoskeletal Provider 12/05/20 02/05/21 Roopa Almonte MD [address] [employer] [facility] [address] [place] [address] Endocrinology, Diabetes, and Metabolism 01/19/21 [place] [address] [facility] 300 [place], [place] [address] Assigned Musculoskeletal Provider 02/06/21 09/16/21 Maryse Burton PA-C [address] [place] [address] Physician Boiler Blower Dermatology 04/14/21 Marquita Starkey MD [address] [facility] [address] [place], [place] [address] Internal Medicine 05/06/21 05/06/21 Roopa Almonte MD [address] [facility] [address] [place] [address] Hospitalist Endocrinology, Diabetes, and Metabolism 05/30/21 Griffin Joshi MD [address] [facility] [address] [place] [address] Cardiovascular Disease 07/25/21 Rina Magallon, RN Lead Store Administrator 07/29/21 07/11/22 Griffin Joshi MD [address] [facility] [address] [place] [address] Assigned Heart and Vascular Provider 08/06/21 10/07/21 Roopa Almonte MD [address] 200 [place] [address] Assigned Endocrinology Provider 09/10/21 [place] [address] [facility] [place] [address] Assigned Musculoskeletal Provider 09/17/21 10/14/21 Lydia Bernstein PA-C [address] [facility] [address] [place] [address] Assigned PCP 10/01/21 10/21/21 Rosa Maria Love CHW Community Health Worker 10/06/21 07/11/22 [place] [address] [address] [facility] [address] [place] [address] Assigned Musculoskeletal Provider 10/15/21 04/26/23 Paula Reza MD [address] [facility] [address] [place] [address] Assigned PCP 10/22/21 12/23/21 Keerthi Miner APRN FINAL CLEANER [address] [place] [address] Assigned Heart and Vascular Provider 10/08/21 02/10/22 Shahida Sutton APRN FINAL CLEANER Assigned PCP 12/24/21 03/24/22 Porsha Michaels APRN FINAL CLEANER [address] [place] [address] Assigned Heart and Vascular Provider 02/11/22 05/12/22 Paula Reza MD [address] [facility] [address] [place] [address] Assigned PCP 03/25/22 04/07/22 Shahida Sutton APRN FINAL CLEANER [address] [place] [address] Assigned PCP 04/08/22 06/30/22 Daylin Ludwig, EP [facility] [address] [place] [address] Cardiac Rehabilitation Therapist 05/16/23 Laurel Velasquez MD [address] [place] [address] Assigned Heart and Vascular Provider 05/13/22 06/30/22 Daylin Ludwig, MIKI [facility] [address] [place] [address] Cardiac Rehabilitation Therapist 06/08/22 06/09/23 Paula Reza MD [address] [place], [place] [address] Assigned PCP 07/01/22 07/07/22 Porsha Michaels APRN FINAL CLEANER [address] [place] [address] Assigned Heart and Vascular Provider 07/01/22 07/07/22 Laurel Velasquez MD [address] [place] [address] Assigned Heart and Vascular Provider 07/08/22 08/04/22 Shahida Sutton APRN FINAL CLEANER Assigned PCP 07/08/22 09/08/22 Marilin Montaño, FINAL CLEANER [address] [place] [address] Assigned Heart and Vascular Provider 08/05/22 Esha Dewtit MD [address] [place] [address] 36 [place], [place] [address] Gastroenterology 09/06/22 Heather Mosquera MD [address] [place] [address] Internal Medicine 09/06/22 Paula Reza MD [address] [place] [address] Assigned PCP 09/09/22 01/05/23 Esha Dewitt MD 420 [facility] 36 [place] [address] Assigned Gastroenterology Provider 09/23/22 Valdo Escamilla PA-C [address] [facility] [address] [place] [address] Assigned Neuroscience Provider 09/30/22 Nohelia Abarca PA-C [address] [facility] [place] [address] Physician Boiler Blower Gastroenterology 10/03/22 Heather Mosquera MD [address] [facility] [address] [place] [address] Assigned PCP 01/06/23 Fawad York MD [address] [place] [address] Assigned Musculoskeletal Provider 04/27/23 06/25/23 documented as of this encounter
--- OUTSIDE RECORDS SUMMARY | 2023-12-25 08:16 | XMS_ITS | Encounter Summary ---
Author Organization [place] Address [address] [place] [address] Care Team Providers Care Clinical Staff Rn Name Role Phone Shahida Sutton APRN CHOPPED STRAND OPERATOR Primary Care Provi ford Unavailable Shahida Sutton APRN CHOPPED STRAND OPERATOR Unavailable Un available Carolynn Ramon RN Unavailable Augustine Callaway MD Unavailable Brady Lion MD Unavailable Un available Nima France-C Unavailable Camille Chandler PA-C Unavailable [phone] Anabela Barakat APRN CHOPPED STRAND OPERATOR Unavailable Nima France PA-C Unavailable Basilio Morillo DO Unavailable [phone] Fawad York MD Unavailable [phone] Roopa Almonte MD Unavailable Augustine Callaway MD Unavailable Maryse Burton PA-C Unavailable Marquita Starkey MD Unavailable Roopa Almonte MD Unavailable Griffin Joshi MD Unavailable Rina Magallon RN Unavailable [phone] Paula Reza MD Primary Care Provider [phone] Griffin Joshi MD Unavailable Roopa Almonte MD Unavailable [phone] Basilio Morillo DO Unavailable Lydia Bernstein-C Unavailable Rosa Maria Love Unavailable [phone] Augustine Callaway MD Unavailable Paula Reza MD Unavailable Keerthi Miner APRN CHOPPED STRAND OPERATOR Unavailable [phone] Herman, Shahida Cummings APRN CHOPPED STRAND OPERATOR Unavailable Un available Porsha Michaels APRN CHOPPED STRAND OPERATOR Unavailable [phone] Paula Reza MD Unavailable Shahida Sutton APRN CHOPPED STRAND OPERATOR Unavailable Un available Daylin Ludwig Unavailable [phone] Laurel Velasquez MD Unavailable [phone] Daylin Ludwig Unavailable [phone] Paula Reza MD Unavailable Porsha Michaels APRN CHOPPED STRAND OPERATOR Unavailable [phone] Laurel Velasquez MD Unavailable [phone] Shahida Sutton SWITCHBOARD AND CONTROL ROOM OPERATOR CHOPPED STRAND OPERATOR Unavailable Un available Marilin Montaño CHOPPED STRAND OPERATOR Unavailable [phone] Esha Dewitt MD Unavailable [phone] EvelineHeather MD Unavailable [phone] Paula Reza MD Unavailable Esha Dewitt MD Unavailable [phone] Valdo Escamilla PA-C Unavailable Nohelia Abarca PA-C Unavailable [phone] Heather Mosquera MD Unavailable [phone] Fawad York MD Unavailable [phone] Encounter Details Date Type Department Care Team (Late st Contact Info) Description 05/06/2019 [facility] Medical Advice [address] [address] Carolynn Ramon RN Social History [...] Out COVID-19 02/15/2020 02/15/2020 02/16/2020 2:32 PM REFERENCE LIBRARY ASSISTANT Rule Out COVID-19 01/05/2021 01/05/2021 01/06/2021 12:57 PM CDT ESBL 01/05/2021 01/05/2021 Rule Out COVID-19 06/30/2021 06/30/2021 07/01/2021 9:34 AM CDT Rule Out COVID-19 07/25/2021 07/25/2021 07/25/2021 8:02 PM CDT Assessment Noted Time PHQ-9 Depression Total Score: 6 12/21/19 18 7:06 AM CDT documented as of this encounter Care Teams Clinical Staff Rn Relationship Specialty Start Date End Date Shahida Sutton APRN CHOPPED STRAND OPERATOR PCP - General Nurse Practitioner 08/17/14 08/04/21 Paula Reza MD [address] [facility] [address] [place] [address] PCP - General Internal Medicine 08/05/21 Shahida Sutton APRN CHOPPED STRAND OPERATOR Assigned PCP 07/12/14 09/30/21 Carolynn Ramon, KASIE Personal Advocate & Liaison (PAL) 12/17/18 08/07/21 [place] [address] [facility] [place] [address] [place] [address] Assigned Musculoskeletal Provider 12/26/19 08/21/20 Brady Lion MD Assigned Heart and Vascular Provider 12/26/19 08/14/20 Nima France PA-C 6545 [facility] [address] [place] [address] Assigned Surgical Provider 05/19/20 08/21/20 Camille Chandler PA-C 6545 [facility] [address] [place] [address] Assigned Neuroscience Provider 05/19/20 09/14/20 Anabela Barakat APRN CHOPPED STRAND OPERATOR [address] [place] [address] Assigned Heart and Vascular Provider 08/15/20 08/05/21 Nima France PA-C [address] [place] [address] [place] [address] Assigned Musculoskeletal Provider 08/22/20 11/13/20 [place] [address] [facility] [place] [address] Assigned Musculoskeletal Provider 11/14/20 12/04/20 Fawad York MD [address] [place], [place] [address] Assigned Musculoskeletal Provider 12/05/20 02/05/21 Roopa Almonte MD [address] [employer] [facility] [address] [place] [address] Endocrinology, Diabetes, and Metabolism 01/19/21 [place] [address] [facility] [address] [place] [address] Assigned Musculoskeletal Provider 02/06/21 09/16/21 Maryse Burton PA-C [address] [place] [address] Physician Cat Tender Dermatology 04/14/21 Marquita Starkey MD [address] [place] [address] [place] [address] Internal Medicine 05/06/21 05/06/21 Roopa Almonte MD [address] [place] [address] [place] [address] Hospitalist Endocrinology, Diabetes, and Metabolism 05/30/21 Griffin Joshi MD [address] [facility] [place] [address] [place] [address] Cardiovascular Disease 07/25/21 Rina Magallon, RN Lead Painter Railroad Car 07/29/21 07/11/22 Griffin Joshi MD [address] [facility] [place] [address] [place] [address] Assigned Heart and Vascular Provider 08/06/21 10/07/21 Roopa Almonte MD [address] [place] [address] 200 [place], [place] [address] Assigned Endocrinology Provider 09/10/21 [place] [address] [facility] [place] [address] Assigned Musculoskeletal Provider 09/17/21 10/14/21 Lydia Bernstein PA-C [address] [facility] [place] [address] [place] [address] Assigned PCP 10/01/21 10/21/21 Rosa Maria Love CHW Community Health Worker 10/06/21 07/11/22 [place] [address] [facility] [address] [place] [address] Assigned Musculoskeletal Provider 10/15/21 04/26/23 Paula Reza MD [address] [facility] [address] [place] [address] Assigned PCP 10/22/21 12/23/21 Keerthi Miner APRN CHOPPED STRAND OPERATOR [address] [place] [address] Assigned Heart and Vascular Provider 10/08/21 02/10/22 Shahida Sutton APRN CHOPPED STRAND OPERATOR Assigned PCP 12/24/21 03/24/22 Porsha Michaels SWITCHBOARD AND CONTROL ROOM OPERATOR CHOPPED STRAND OPERATOR [address] [place] [address] Assigned Heart and Vascular Provider 02/11/22 05/12/22 Paula Reza MD [address] [facility] [address] [place] [address] Assigned PCP 03/25/22 04/07/22 Shahida Sutton APRN CHOPPED STRAND OPERATOR [address] [place] [address] Assigned PCP 04/08/22 06/30/22 Daylin Ludwig EP [facility] [address] [place] [address] Cardiac Rehabilitation Therapist 05/16/23 Laurel Velasquez MD [address] [place] [address] Assigned Heart and Vascular Provider 05/13/22 06/30/22 Daylin Ludwig EP [facility] [address] [place] [address] Cardiac Rehabilitation Therapist 06/08/22 06/09/23 Paula Reza MD [address] [place], [place] [address] Assigned PCP 07/01/22 07/07/22 Porsha Michaels APRN CHOPPED STRAND OPERATOR [address] [place] [address] Assigned Heart and Vascular Provider 07/01/22 07/07/22 Laurel Velasquez MD [address] [place], [place] [address] Assigned Heart and Vascular Provider 07/08/22 08/04/22 Shahida Sutton APRN CHOPPED STRAND OPERATOR Assigned PCP 07/08/22 09/08/22 Marilin Montaño, CHOPPED STRAND OPERATOR [address] [place] [address] Assigned Heart and Vascular Provider 08/05/22 Esha Dewitt MD [address] [place] [address] Gastroenterology 09/06/22 Heather Mosquera MD [address] [place] [address] [place] [address] Internal Medicine 09/06/22 Paula Reza MD [address] [place], [place] [address] Assigned PCP 09/09/22 01/05/23 Esha Dewitt MD [address] [place] [address] Assigned Gastroenterology Provider 09/23/22 Valdo Escamilla PA-C 6[address] [facility] [address] [place] [address] Assigned Neuroscience Provider 09/30/22 Nohelia Abarca PA-C [address] [place], [place] [address] Physician Cat Tender Gastroenterology 10/03/22 Heather Mosquera MD [address]45 [facility] 150 [place] [address] Assigned PCP 01/06/23 Fawad York MD [address] [place], [place] [address] Assigned Musculoskeletal Provider 04/27/23 06/25/23 documented as of this encounter
--- OUTSIDE RECORDS SUMMARY | 2023-12-25 08:16 | XMS_ITS | Encounter Summary ---
Author Organization [place] Address [address] [place] [address] Care Team Providers Care Integration Architect Name Role Phone Shahida Sutton APRN SNELLER HAND Primary Care Provi ford Unavailable Shahida Sutton APRN SNELLER HAND Unavailable Un available Carolynn Ramon RN Unavailable [phone] Augustine Callaway MD Unavailable Brady Lion MD Unavailable Un available Nima France-C Unavailable Camille Chandler PA-C Unavailable [phone] Anabela Barakat APRN SNELLER HAND Unavailable Nima France PA-C Unavailable Basilio Morillo DO Unavailable [phone] Fawad York MD Unavailable Roopa Almonte MD Unavailable [phone] Augustine Callaway MD Unavailable Maryse Burton PA-C Unavailable [phone] Marquita Starkey MD Unavailable Roopa Almonte MD Unavailable Griffin Joshi MD Unavailable Rina Magallon RN Unavailable [phone] Paula Reza MD Primary Care Provider [phone] Griffin Joshi MD Unavailable Roopa Almonte MD Unavailable [phone] Basilio Morillo DO Unavailable Lydia Bernstein-C Unavailable Rosa Maria Love Unavailable [phone] Augustine Callaway MD Unavailable Paula Reza MD Unavailable Keerthi Miner APRN SNELLER HAND Unavailable [phone] Herman, Shahida Cummings APRN SNELLER HAND Unavailable Un available Porsha Michaels APRN SNELLER HAND Unavailable [phone] Paula Reza MD Unavailable Shahida Sutton APRN SNELLER HAND Unavailable Un available Daylin Ludwig Unavailable [phone] Laurel Velasquez MD Unavailable [phone] Daylin Ludwig Unavailable [phone] Paula Reza MD Unavailable Porsha Michaels APRN SNELLER HAND Unavailable [phone] Laurel Velasquez MD Unavailable [phone] Shahida Sutton CONTENT ANALYST SNELLER HAND Unavailable Un available Marilin Montaño SNELLER HAND Unavailable [phone] Esha Dewitt MD Unavailable [phone] EvelineHeather MD Unavailable [phone] Paula Reza MD Unavailable Esha Dewitt MD Unavailable [phone] Andi Valdo Desouza PA-C Unavailable Nohelia Abarca PA-C Unavailable [phone] Hetaher Mosquera MD Unavailable Fawad York MD Unavailable Reason for Visit * Reason Onset Date Comments Refill Request 01/04/2020 Encounter Details Date Type Department Care Team (Late st Contact Info) Description 01/04/2020 MyC Refill M [address] [address] Shahida Sutton APRN SNELLER HAND Refill Request Social History Tobacco Use Types [...] Out COVID-19 02/15/2020 02/15/2020 02/16/2020 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 Rule Out COVID-19 01/05/2021 01/05/2021 01/06/2021 12:57 PM CDT ESBL 01/05/2021 01/05/2021 Rule Out COVID-19 06/30/2021 06/30/2021 07/01/2021 9:34 AM CDT Rule Out COVID-19 07/25/2021 07/25/2021 07/25/2021 8:02 PM CDT Assessment Noted Time PHQ-9 Depression Total Score: 7 08/13/19 20 1:22 PM CDT documented as of this encounter Care Teams Integration Architect Relationship Specialty Start Date End Date Shahida Sutton APRN SNELLER HAND PCP - General Nurse Practitioner 08/17/14 08/04/21 Paula Reza MD [address] [facility] [address] [place] [address] PCP - General Internal Medicine 08/05/21 Shahida Sutton APRN SNELLER HAND Assigned PCP 07/12/14 09/30/21 Carolynn Ramon, KASIE Personal Advocate & Liaison (PAL) 12/17/18 08/07/21 [place] [address] [address] [facility] [address] [place] [address] Assigned Musculoskeletal Provider 12/26/19 08/21/20 Brady Lion MD Assigned Heart and Vascular Provider 12/26/19 08/14/20 Nima France PA-C 6545 [facility] 450 [place] [address] Assigned Surgical Provider 05/19/20 08/21/20 Camille Chandler PA-C [address]45 [facility] [address] [place] [address] Assigned Neuroscience Provider 05/19/20 09/14/20 Anabela Barakat APRN SNELLER HAND [address] [place] [address] Assigned Heart and Vascular Provider 08/15/20 08/05/21 Nima France PA-C [address] [place] [address] Assigned Musculoskeletal Provider 08/22/20 11/13/20 Ilia Basilio Naik [address] [facility] [place] [address] Assigned Musculoskeletal Provider 11/14/20 12/04/20 Fawad York MD [address] [place], [place] [address] Assigned Musculoskeletal Provider 12/05/20 02/05/21 Roopa Almonte MD [address] [facility] [address] [place] [address] Endocrinology, Diabetes, and Metabolism 01/19/21 [place] [address] [facility] [address] [address] [place] [address] Assigned Musculoskeletal Provider 02/06/21 09/16/21 Maryse Burton PA-C [address] [place] [address] Physician Obstetrician/Gynecologist Dermatology 04/14/21 Marquita Starkey MD [address] [place] [address] [place] [address] Internal Medicine 05/06/21 05/06/21 Roopa Almonte MD [address] [place] [address] Hospitalist Endocrinology, Diabetes, and Metabolism 05/30/21 Griffin Joshi MD [address] [facility] [address] [place] [address] Cardiovascular Disease 07/25/21 Rina Magallon, RN Lead Plastic Panel Installer 07/29/21 07/11/22 Griffin Joshi MD [address] [facility] [address] [place] [address] Assigned Heart and Vascular Provider 08/06/21 10/07/21 Roopa Almonte MD [address] [place] [address] 200 [place], [place] [address] Assigned Endocrinology Provider 09/10/21 [place] [address] [facility] [place] [address] Assigned Musculoskeletal Provider 09/17/21 10/14/21 Lydia Bernstein PA-C [address] [facility] [address] [place] [address] Assigned PCP 10/01/21 10/21/21 Rosa Maria Love CHW Community Health Worker 10/06/21 07/11/22 [place] [address] [facility] [address] [place] [address] Assigned Musculoskeletal Provider 10/15/21 04/26/23 Paula Reza MD [address] [facility] [address] [place] [address] Assigned PCP 10/22/21 12/23/21 Keerthi Miner APRN SNELLER HAND [address] [place] [address] Assigned Heart and Vascular Provider 10/08/21 02/10/22 Shahida Sutton APRN SNELLER HAND Assigned PCP 12/24/21 03/24/22 Porsha Michaels APRN SNELLER HAND [address] [place] [address] Assigned Heart and Vascular Provider 02/11/22 05/12/22 Paula Reza MD [address] [facility] [address] [place] [address] Assigned PCP 03/25/22 04/07/22 Shahida Sutton APRN SNELLER HAND [address] [place] [address] Assigned PCP 04/08/22 06/30/22 Daylin Ludwig EP [facility] [address] [place] [address] Cardiac Rehabilitation Therapist 05/16/23 Laurel Velasquez MD [address] [place] [address] Assigned Heart and Vascular Provider 05/13/22 06/30/22 Daylin Ludwig EP [facility] [address] [place] [address] Cardiac Rehabilitation Therapist 06/08/22 06/09/23 Paula Reza MD [address] [place] [address] Assigned PCP 07/01/22 07/07/22 Porsha Michaels APRN SNELLER HAND [address] [place] [address] Assigned Heart and Vascular Provider 07/01/22 07/07/22 Laurel Velasquez MD [address] [place] [address] Assigned Heart and Vascular Provider 07/08/22 08/04/22 Shahida Sutton APRN SNELLER HAND Assigned PCP 07/08/22 09/08/22 Marilin Montaño SNELLER HAND [address] [place] [address] Assigned Heart and Vascular Provider 08/05/22 Esha Dewitt MD [address] [place] [address] Gastroenterology 09/06/22 Heather Mosquera MD [address] [place] [address] [place] [address] Internal Medicine 09/06/22 Paula Reza MD [address] [place] [address] Assigned PCP 09/09/22 01/05/23 Esha Dewitt MD [address] [place] [address] 5[address]85 Assigned Gastroenterology Provider 09/23/22 Valdo Escamilla PA-C 6363 [facility] 103 [place] [address] Assigned Neuroscience Provider 09/30/22 Nohelia Abarca PA-C [address]50 [place], [place] [address] Physician Obstetrician/Gynecologist Gastroenterology 10/03/22 Heather Mosquera MD 6545 [facility] 150 [place], [place] [address] Assigned PCP 01/06/23 Fawad York MD [address] [place], [place] [address] Assigned Musculoskeletal Provider 04/27/23 06/25/23 documented as of this encounter
--- OUTSIDE RECORDS SUMMARY | 2023-12-25 08:16 | XMS_ITS | Encounter Summary ---
Author Organization [place] Address [address] [place] [address] Care Team Providers Care Group Chief Operator Name Role Phone Shahida Sutton APRN JEWELRY FINISHER Primary Care Provi ford Unavailable Shahida Sutton APRN JEWELRY FINISHER Unavailable Un available Carolynn Ramon RN Unavailable Augustine Callaway MD Unavailable Brady Lion MD Unavailable Un available Nima France-C Unavailable Camille Chandler PA-C Unavailable [phone] Anabela Barakat APRN JEWELRY FINISHER Unavailable Nima France PA-C Unavailable Basilio Morillo DO Unavailable Fawad York MD Unavailable Roopa Almonte MD Unavailable [phone] Augustine Callaway MD Unavailable Maryse Burton PA-C Unavailable Marquita Starkey MD Unavailable Roopa Almonte MD Unavailable Griffin Joshi MD Unavailable Rina Magallon RN Unavailable [phone] Paula Reza MD Primary Care Provider [phone] Griffin Joshi MD Unavailable Roopa Almonte MD Unavailable [phone] Basilio Morillo DO Unavailable Lydia Bernstein-C Unavailable Rosa Maria Love Unavailable [phone] Augustine Callaway MD Unavailable Paula Reza MD Unavailable Keerthi Miner APRN JEWELRY FINISHER Unavailable [phone] Herman, Shahida Cummings APRN JEWELRY FINISHER Unavailable Un available Porsha Michaels APRN JEWELRY FINISHER Unavailable [phone] Paula Reza MD Unavailable Shahida Sutton APRN JEWELRY FINISHER Unavailable Un available Daylin Ludwig Unavailable [phone] Laurel Velasquez MD Unavailable [phone] Daylin Ludwig Unavailable [phone] Paula Reza MD Unavailable Porsha Michaels APRN JEWELRY FINISHER Unavailable [phone] Laurel Velasquez MD Unavailable [phone] Shahida Sutton RADIATION CONTROL TECHNICIAN JEWELRY FINISHER Unavailable Un available Marilin Montaño JEWELRY FINISHER Unavailable [phone] Esha Dewitt MD Unavailable [phone] EvelineHeather MD Unavailable [phone] Paula Reza MD Unavailable Esha Dewitt MD Unavailable [phone] Valdo Escamilla PA-C Unavailable [phone] Nohelia Abarca PA-C Unavailable [phone] Heather Mosquera MD Unavailable [phone] Fawad York MD Unavailable Encounter Details Date Type Department Care Team (Late st Contact Info) Description 09/30/2019 MyC Medical Advice [address] [address] Emma Bryan MA Social History [...] Out COVID-19 02/15/2020 02/15/2020 02/16/2020 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 Rule Out COVID-19 01/05/2021 01/05/2021 01/06/2021 12:57 PM CDT ESBL 01/05/2021 01/05/2021 Rule Out COVID-19 06/30/2021 06/30/2021 07/01/2021 9:34 AM CDT Rule Out COVID-19 07/25/2021 07/25/2021 07/25/2021 8:02 PM CDT Assessment Noted Time PHQ-9 Depression Total Score: 7 08/13/19 20 1:22 PM CDT documented as of this encounter Care Teams Group Chief Operator Relationship Specialty Start Date End Date Shahida Sutton APRN JEWELRY FINISHER PCP - General Nurse Practitioner 08/17/14 08/04/21 Paula Reza MD [address] [facility] [address] [place] [address] PCP - General Internal Medicine 08/05/21 Shahida Sutton APRN JEWELRY FINISHER Assigned PCP 07/12/14 09/30/21 Carolynn Ramon RN Personal Advocate & Liaison (PAL) 12/17/18 08/07/21 [place] [address] [place] [address] Assigned Musculoskeletal Provider 12/26/19 08/21/20 Brady Lion MD Assigned Heart and Vascular Provider 12/26/19 08/14/20 Nima France PA-C [address] [place] [address] Assigned Surgical Provider 05/19/20 08/21/20 Camille Chandler PA-C [address] [place] [id number] Assigned Neuroscience Provider 05/19/20 09/14/20 Anabela Barakat APRN JEWELRY FINISHER [address] [place] [address] Assigned Heart and Vascular Provider 08/15/20 08/05/21 Nima France PA-C [address] [facility] [address] [place] [address] Assigned Musculoskeletal Provider 08/22/20 11/13/20 [place] [address] [facility] [place] [address] Assigned Musculoskeletal Provider 11/14/20 12/04/20 Fawad York MD [address] [place], [place] [address] Assigned Musculoskeletal Provider 12/05/20 02/05/21 Roopa Almonte MD [address] [facility] 200 [place] [address] Endocrinology, Diabetes, and Metabolism 01/19/21 [place] [address] [facility] [address] [place] [address] Assigned Musculoskeletal Provider 02/06/21 09/16/21 Maryse Burton PA-C [address] [place] [address] Physician Tag Stringer Dermatology 04/14/21 Marquita Starkey MD [address] [facility] [address] [place], [place] [address] Internal Medicine 05/06/21 05/06/21 Roopa Almonte MD [address] [facility] [address] [place], [place] [address] Hospitalist Endocrinology, Diabetes, and Metabolism 05/30/21 Griffin Joshi MD [address] [place] [address] Cardiovascular Disease 07/25/21 Rina Magallon, RN Lead Pictures Editor 07/29/21 07/11/22 Griffin Joshi MD [address] [place] [address] Assigned Heart and Vascular Provider 08/06/21 10/07/21 Roopa Almonte MD [address] [facility] 200 [place] [address] Assigned Endocrinology Provider 09/10/21 [place] [address] [facility] [place] [place] [address] Assigned Musculoskeletal Provider 09/17/21 10/14/21 Lydia Bernstein PA-C [address] [place] [address] Assigned PCP 10/01/21 10/21/21 Rosa Maria Love CHW Community Health Worker 10/06/21 07/11/22 [place] [address] [place] [address] Assigned Musculoskeletal Provider 10/15/21 04/26/23 Paula Reza MD [address] [place] [address] Assigned PCP 10/22/21 12/23/21 Keerthi Miner APRN JEWELRY FINISHER [address] [place] [address] Assigned Heart and Vascular Provider 10/08/21 02/10/22 Shahida Sutton APRN JEWELRY FINISHER Assigned PCP 12/24/21 03/24/22 Porsha Michaels APRN JEWELRY FINISHER [address] [place] [address] Assigned Heart and Vascular Provider 02/11/22 05/12/22 Paula Reza MD [address] [place] [address] Assigned PCP 03/25/22 04/07/22 Shahida Sutton APRN JEWELRY FINISHER [address] [place] [address] Assigned PCP 04/08/22 06/30/22 Daylin Ludwig, EP [facility] [address] [place] [address] Cardiac Rehabilitation Therapist 05/16/23 Laurel Velasquez MD [address] [place] [address] Assigned Heart and Vascular Provider 05/13/22 06/30/22 Daylin Ludwig, EP [facility] [address] [address] Cardiac Rehabilitation Therapist 06/08/22 06/09/23 Paula Reza MD [address] [place], [place] [address] Assigned PCP 07/01/22 07/07/22 Porsha Michaels APRN JEWELRY FINISHER [address] [place] [address] Assigned Heart and Vascular Provider 07/01/22 07/07/22 Laurel Velasquez MD [address] [place] [address] Assigned Heart and Vascular Provider 07/08/22 08/04/22 Shahida Sutton APRN JEWELRY FINISHER Assigned PCP 07/08/22 09/08/22 Marilin Montaño, JEWELRY FINISHER [address] [place] [address] Assigned Heart and Vascular Provider 08/05/22 Esha Dewitt MD [address] [place] [address] 36 [place], [place] [address] Gastroenterology 09/06/22 Heather Mosquera MD [address] [place] [address] Internal Medicine 09/06/22 Paula Reza MD [address] [place] [address] Assigned PCP 09/09/22 01/05/23 Esha Dewitt MD [address] [facility] 36 [place], [place] [address] Assigned Gastroenterology Provider 09/23/22 Valdo Escamilla PA-C [address] [facility] [address] [place] [address] Assigned Neuroscience Provider 09/30/22 Nohelia Abarca PA-C [address] [place] [address] Physician Tag Stringer Gastroenterology 10/03/22 Heather Mosquera MD [address] [place] [address] Assigned PCP 01/06/23 Fawad York MD [address] [place], [place] [address] Assigned Musculoskeletal Provider 04/27/23 06/25/23 documented as of this encounter
--- OUTSIDE RECORDS SUMMARY | 2023-12-25 08:16 | XMS_ITS | Encounter Summary ---
Author Organization [place] Address [address] [place] [address] Care Team Providers Care Clearance Cutter Name Role Phone Shahida Sutton APRN SMOKING PIPES CLEANER Primary Care Provi ford Unavailable Shahida Sutton APRN SMOKING PIPES CLEANER Unavailable Un available Carolynn Ramon RN Unavailable Augustine Callaway MD Unavailable Brady Lion MD Unavailable Un available Nima France-C Unavailable Camille Chandler PA-C Unavailable [phone] Anabela Barakat APRN SMOKING PIPES CLEANER Unavailable Nima France PA-C Unavailable Basilio Morillo DO Unavailable Fawad York MD Unavailable Roopa Almonte MD Unavailable Augustine Callaway MD Unavailable Maryse Burton PA-C Unavailable [phone] Marquita Starkey MD Unavailable Roopa Almonte MD Unavailable Griffin Joshi MD Unavailable Rina Magallon RN Unavailable [phone] Paula Reza MD Primary Care Provider [phone] Griffin Joshi MD Unavailable Roopa Almonte MD Unavailable [phone] Basilio Morillo DO Unavailable Lydia Bernstein-C Unavailable Rosa Maria Love Unavailable [phone] Augustine Callaway MD Unavailable Paula Reza MD Unavailable Keerthi Miner APRN SMOKING PIPES CLEANER Unavailable [phone] Herman, Shahida Cummings APRN SMOKING PIPES CLEANER Unavailable Un available Porsha Michaels APRN SMOKING PIPES CLEANER Unavailable [phone] Paula Reza MD Unavailable Shahida Sutton APRN SMOKING PIPES CLEANER Unavailable Un available Daylin Ludwig Unavailable [phone] Laurel Velasquez MD Unavailable [phone] Daylin Ludwig Unavailable [phone] Paula Reaz MD Unavailable Porsha Michaels APRN SMOKING PIPES CLEANER Unavailable [phone] Laurel Velasquez MD Unavailable [phone] Shahida Sutton OFFSET PRESS OPERATOR HELPER SMOKING PIPES CLEANER Unavailable Un available Marilin Montaño SMOKING PIPES CLEANER Unavailable [phone] Esha Dewitt MD Unavailable [phone] EvelineHeather MD Unavailable [phone] Paula Reza MD Unavailable Esha Dewitt MD Unavailable [phone] Andi Valdo Desouza PA-C Unavailable Nohelia Abarca PA-C Unavailable [phone] Heather Mosquera MD Unavailable [phone] Fawad York MD Unavailable Reason for Visit * Reason Onset Date Comments Medication Question 06/27/2019 SE of botox neck pain and spasms Encounter Details Date Type Department Care Team (Late st Contact Info) Description 06/27/[address] [address] Shahida Sutton APRN CNP Medication [...] 06/30/2019 8:31 AM CDT Shahida Sutton APRN SMOKING PIPES CLEANER Please see update below Neck spasms - [...] him in clinic Carolynn Ramon Registered Nurse [facility] * Telephone Encounter - Shahida Sutton APRN [...] message? 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 Rule Out COVID-19 01/05/2021 01/05/2021 01/06/2021 12:57 PM CDT ESBL 01/05/2021 01/05/2021 Rule Out COVID-19 06/30/2021 06/30/2021 07/01/2021 9:34 AM CDT Rule Out COVID-19 07/25/2021 07/25/2021 07/25/2021 8:02 PM CDT Assessment Noted Time PHQ-9 Depression Total Score: 6 12/21/19 18 7:06 AM CDT documented as of this encounter Care Teams Clearance Cutter Relationship Specialty Start Date End Date Shahida Sutton APRN SMOKING PIPES CLEANER PCP - General Nurse Practitioner 08/17/14 08/04/21 Paula Reza MD [address] [address] PCP - General Internal Medicine 08/05/21 Shahida Sutton APRN SMOKING PIPES CLEANER Assigned PCP 07/12/14 09/30/21 Carolynn Ramon, KASIE Personal Advocate & Liaison (PAL) 12/17/18 08/07/21 [place] [address] [place] [address] Assigned Musculoskeletal Provider 12/26/19 08/21/20 Brady Lion MD Assigned Heart and Vascular Provider 12/26/19 08/14/20 Nima France PA-C [address] [place] [address] Assigned Surgical Provider 05/19/20 08/21/20 Camille Chandler PA-C [address] [place] [address] Assigned Neuroscience Provider 05/19/20 09/14/20 Anabela Barakat APRN SMOKING PIPES CLEANER [address] [place] [address] Assigned Heart and Vascular Provider 08/15/20 08/05/21 Nima France PA-C [address] [place] [address] Assigned Musculoskeletal Provider 08/22/20 11/13/20 [place] [address] [facility] [place] [address] Assigned Musculoskeletal Provider 11/14/20 12/04/20 Fawad Yokr MD [address] [place], [place] [address] Assigned Musculoskeletal Provider 12/05/20 02/05/21 Roopa Almonte MD [address] [facility] 200 [place] [address] Endocrinology, Diabetes, and Metabolism 01/19/21 [place] [address] [facility] [address] [place] [address] Assigned Musculoskeletal Provider 02/06/21 09/16/21 Maryse Burton PA-C [address] [place] [address] Physician Licensed Pharmacist Dermatology 04/14/21 Marquita Starkey MD [address] [facility] 200 [place] [address] Internal Medicine 05/06/21 05/06/21 Roopa Almonte MD [address] [facility] 200 [place] [address] Hospitalist Endocrinology, Diabetes, and Metabolism 05/30/21 Griffin Joshi MD [address] [place] [address] Cardiovascular Disease 07/25/21 Rina Magallon, RN Lead Skewer Up 07/29/21 07/11/22 Griffin Joshi MD [address] [place] [address] Assigned Heart and Vascular Provider 08/06/21 10/07/21 Roopa Almonte MD [address] [place] [address] 200 [place], [place] [address] Assigned Endocrinology Provider 09/10/21 [place] [address] [facility] [place] [id number] Assigned Musculoskeletal Provider 09/17/21 10/14/21 Lydia Bernstein PA-C [address] [place] [address] Assigned PCP 10/01/21 10/21/21 Rosa Maria Love Cristina Community Health Worker 10/06/21 07/11/22 [place] [address] [facility] [address] [place], [place] [address] Assigned Musculoskeletal Provider 10/15/21 04/26/23 Paula Reza MD [address] [facility] [address] [place], [place] [address] Assigned PCP 10/22/21 12/23/21 Keerthi Miner APRN SMOKING PIPES CLEANER [address] [place] [address] Assigned Heart and Vascular Provider 10/08/21 02/10/22 Shahida Sutton APRN SMOKING PIPES CLEANER Assigned PCP 12/24/21 03/24/22 Porsha Michaels APRN SMOKING PIPES CLEANER [address] [place] [address] Assigned Heart and Vascular Provider 02/11/22 05/12/22 Paula Reza MD [address] [place] [address] Assigned PCP 03/25/22 04/07/22 Shahida Sutton, OFFSET PRESS OPERATOR HELPER SMOKING PIPES CLEANER [address] [place] [address] Assigned PCP 04/08/22 06/30/22 Daylin Ludwig EP [facility] [address] [place] [address] Cardiac Rehabilitation Therapist 05/16/23 Laurel Velaqsuez MD [address] [place] [address] Assigned Heart and Vascular Provider 05/13/22 06/30/22 Daylin Ludwig EP [facility] [address] [place] [address] Cardiac Rehabilitation Therapist 06/08/22 06/09/23 Paula Reza MD [address] [place] [address] Assigned PCP 07/01/22 07/07/22 Porsha Michaels APRN SMOKING PIPES CLEANER [address] [place] [address] Assigned Heart and Vascular Provider 07/01/22 07/07/22 Laurel Velasquez MD [address] [place] [address] Assigned Heart and Vascular Provider 07/08/22 08/04/22 Shahida Sutton APRN SMOKING PIPES CLEANER Assigned PCP 07/08/22 09/08/22 Marilin Montaño, SMOKING PIPES CLEANER [address] [place] [address] Assigned Heart and Vascular Provider 08/05/22 Esha Dewitt MD [address] [address] Gastroenterology 09/06/22 Heather Mosquera MD [address] [place] [address] Internal Medicine 09/06/22 Paula Reza MD [address] [facility] 200 [place] [address] Assigned PCP 09/09/22 01/05/23 Esha Dewitt MD 420 [facility] 36 [place] [address] Assigned Gastroenterology Provider 09/23/22 Valdo Escamilla PA-C [address] [facility] [address] [place] [address] Assigned Neuroscience Provider 09/30/22 Nohelia Abarca PA-C [address] [facility] [place], [place] [address] Physician Licensed Pharmacist Gastroenterology 10/03/22 Heather Mosquera MD [address] [address] Assigned PCP 01/06/23 Fawad York MD [address] [place], [place] [address] Assigned Musculoskeletal Provider 04/27/23 06/25/23 documented as of this encounter
--- OUTSIDE RECORDS SUMMARY | 2023-12-25 08:16 | XMS_ITS | Encounter Summary ---
Author Organization [facility] Address [address] [place] [address] Care Team Providers Care Rigging Foreman Name Role Phone Shahida Sutton APRN ASSISTANT MEN'S SOCCER COACH Primary Care Provi ford Unavailable Shahida Sutton APRN ASSISTANT MEN'S SOCCER COACH Unavailable Un available Carolynn Ramon RN Unavailable [phone] Augustine Callaway MD Unavailable Brady Lion MD Unavailable Un available Nmia France-C Unavailable Camille Chandler PA-C Unavailable [phone] Anabela Barakat APRN ASSISTANT MEN'S SOCCER COACH Unavailable Nima France PA-C Unavailable Basilio Morillo DO Unavailable Fawad York MD Unavailable Roopa Almonte MD Unavailable Augustine Callaway MD Unavailable Maryse Burton PA-C Unavailable Marquita Starkey MD Unavailable [phone] Roopa Almonte MD Unavailable Griffin Joshi MD Unavailable Rina Magallon RN Unavailable [phone] Paula Reza MD Primary Care Provider [phone] Griffin Joshi MD Unavailable Roopa Almonte MD Unavailable [phone] Basilio Morillo DO Unavailable Lydia Bernstein-C Unavailable Rosa Maria Love Unavailable [phone] Augustine Callaway MD Unavailable Paula Reza MD Unavailable Keerthi Miner APRN ASSISTANT MEN'S SOCCER COACH Unavailable [phone] Herman, Shahida Cummings APRN ASSISTANT MEN'S SOCCER COACH Unavailable Un available Porsha Michaels APRN ASSISTANT MEN'S SOCCER COACH Unavailable [phone] Paula Reza MD Unavailable Shahida Sutton APRN ASSISTANT MEN'S SOCCER COACH Unavailable Un available Daylin Ludwig Unavailable [phone] Laurel Velasquez MD Unavailable [phone] Daylin Ludwig Unavailable [phone] Paula Reza MD Unavailable Porsha Michaels APRN ASSISTANT MEN'S SOCCER COACH Unavailable [phone] Laurel Velasquez MD Unavailable [phone] Shahida Sutton CANARY BREEDER ASSISTANT MEN'S SOCCER COACH Unavailable Un available Marilin Montaño ASSISTANT MEN'S SOCCER COACH Unavailable [phone] Esha Dewitt MD Unavailable [phone] EvelineHeather MD Unavailable [phone] Paula Reza MD Unavailable Esha Dewitt MD Unavailable [phone] Andi Valdo Desouza PA-C Unavailable [phone] Nohelia Abarca PA-C Unavailable [phone] Heather Mosquera MD Unavailable [phone] Fawad York MD Unavailable Reason for Visit * Reason Onset Date Comments Refill Request 11/05/2019 Encounter Details Date Type Department Care Team (Late st Contact Info) Description 11/05/2019 MyC Refill [address] [id number] Shahida Sutton APRN ASSISTANT MEN'S SOCCER COACH Refill Request Social History Tobacco Use Types [...] 11/05/2019 11:47 AM CDT Prescription approved per [facility] Refill Protocol. 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 Rule Out COVID-19 01/05/2021 01/05/2021 01/06/2021 12:57 PM CDT ESBL 01/05/2021 01/05/2021 Rule Out COVID-19 06/30/2021 06/30/2021 07/01/2021 9:34 AM CDT Rule Out COVID-19 07/25/2021 07/25/2021 07/25/2021 8:02 PM CDT Assessment Noted Time PHQ-9 Depression Total Score: 7 08/13/19 20 1:22 PM CDT documented as of this encounter Care Teams Rigging Foreman Relationship Specialty Start Date End Date Shahida Sutton APRN ASSISTANT MEN'S SOCCER COACH PCP - General Nurse Practitioner 08/17/14 08/04/21 Paula Reza MD [facility] [address] [place] [address] PCP - General Internal Medicine 08/05/21 Shahida Sutton APRN ASSISTANT MEN'S SOCCER COACH Assigned PCP 07/12/14 09/30/21 Carolynn Ramon, KASIE Personal Advocate & Liaison (PAL) 12/17/18 08/07/21 [place] [address] [place] [address] Assigned Musculoskeletal Provider 12/26/19 08/21/20 Brady Lion MD Assigned Heart and Vascular Provider 12/26/19 08/14/20 Nima France PA-C [address] [facility] [address] [place] [address] Assigned Surgical Provider 05/19/20 08/21/20 Camille Chandler PA-C [address] [facility] [address] [place] [address] Assigned Neuroscience Provider 05/19/20 09/14/20 Anabela Barakat APRN ASSISTANT MEN'S SOCCER COACH [address] [place] [address] Assigned Heart and Vascular Provider 08/15/20 08/05/21 Nima France PA-C [address] [facility] [address] [place] [address] Assigned Musculoskeletal Provider 08/22/20 11/13/20 [place] [address] [place] [address] Assigned Musculoskeletal Provider 11/14/20 12/04/20 Fawad York MD [address] [place] [address] Assigned Musculoskeletal Provider 12/05/20 02/05/21 Roopa Almonte MD [address] [facility] [address] [place] [address] Endocrinology, Diabetes, and Metabolism 01/19/21 [place] [address] [facility] [address] [place] [address] Assigned Musculoskeletal Provider 02/06/21 09/16/21 Maryse Burton PA-C [address] [place] [address] Physician Insurance Policy Issue Clerk Dermatology 04/14/21 Marquita Starkey MD [address] [facility] [address] [place] [address] Internal Medicine 05/06/21 05/06/21 Roopa Almonte MD [address] [facility] [address] [place] [address] Hospitalist Endocrinology, Diabetes, and Metabolism 05/30/21 Griffin Joshi MD [address] [facility] [address] [place] [address] Cardiovascular Disease 07/25/21 Rina Magallon, RN Lead Stage Director 07/29/21 07/11/22 Griffin Joshi MD [address] [facility] [address] [place] [address] Assigned Heart and Vascular Provider 08/06/21 10/07/21 Roopa Almonte MD [address] [facility] [address] [place], [place] [address] Assigned Endocrinology Provider 09/10/21 [place] [address] [facility] [place] [address] Assigned Musculoskeletal Provider 09/17/21 10/14/21 Lydia Bernstein PA-C [address] [place] [address] Assigned PCP 10/01/21 10/21/21 Rosa Maria Love CHW Community Health Worker 10/06/21 07/11/22 [place] [address] [place] [address] Assigned Musculoskeletal Provider 10/15/21 04/26/23 Paula Reza MD [address] [facility] [address] [place], [place] [address] Assigned PCP 10/22/21 12/23/21 Keerthi Miner APRN ASSISTANT MEN'S SOCCER COACH [address] [place] [address] Assigned Heart and Vascular Provider 10/08/21 02/10/22 Shahida Sutton APRN ASSISTANT MEN'S SOCCER COACH Assigned PCP 12/24/21 03/24/22 Porsha Michaels APRN ASSISTANT MEN'S SOCCER COACH [address] [place] [address] Assigned Heart and Vascular Provider 02/11/22 05/12/22 Paula Reza MD [address] [facility] [address] [place] [address] Assigned PCP 03/25/22 04/07/22 Shahida Sutton APRN ASSISTANT MEN'S SOCCER COACH [address] [place] [address] Assigned PCP 04/08/22 06/30/22 Daylin Ludwig, [facility] [address] [place] [address] Cardiac Rehabilitation Therapist 05/16/23 Laurel Velasquez MD [address] [place] [address] Assigned Heart and Vascular Provider 05/13/22 06/30/22 Daylin Ludwig, [facility] [address] [place] [address] Cardiac Rehabilitation Therapist 06/08/22 06/09/23 Paula Reza MD [address] [facility] [address] [place] [address] Assigned PCP 07/01/22 07/07/22 Porsha Michaels APRN ASSISTANT MEN'S SOCCER COACH [address] [place] [address] Assigned Heart and Vascular Provider 07/01/22 07/07/22 Laurel Velasquez MD [address] [place] [address] Assigned Heart and Vascular Provider 07/08/22 08/04/22 Shahida Sutton APRN ASSISTANT MEN'S SOCCER COACH Assigned PCP 07/08/22 09/08/22 Marilin Montaño, ASSISTANT MEN'S SOCCER COACH [address] [place] [address] Assigned Heart and Vascular Provider 08/05/22 Esha Dewitt MD [address] [address]285[address] MD Gastroenterology 09/06/22 Heather Mosquera MD [address] [place], [place] [address] Internal Medicine 09/06/22 Paula Reza MD [address] [facility] [address] [place], [place] [address] Assigned PCP 09/09/22 01/05/23 Esha Dewitt MD [address] [address]30[address] Assigned Gastroenterology Provider 09/23/22 Valdo Escamilla PA-C [address] [facility] [address] [place], [place] [address] Assigned Neuroscience Provider 09/30/22 Nohelia Abarca PA-C [address] [place], [place] [address] Physician Insurance Policy Issue Clerk Gastroenterology 10/03/22 Heather Mosquera MD [address] [place], [place] [address] Assigned PCP 01/06/23 Fawad York MD [address] [place], [place] [address] Assigned Musculoskeletal Provider 04/27/23 06/25/23 documented as of this encounter
--- OUTSIDE RECORDS SUMMARY | 2023-12-25 08:16 | XMS_ITS | Encounter Summary ---
Author Organization [facility] Address [address] [place] [address] Care Team Providers Care Landfill Gas Collection System Operator Name Role Phone Shahida Sutton APRN FLOORING INSTALLER Primary Care Provi ford Unavailable Shahida Sutton APRN FLOORING INSTALLER Unavailable Un available Carolynn Ramon RN Unavailable [phone] Augustine Callaway MD Unavailable Brady Lion MD Unavailable Un available Nima France-C Unavailable Camille Chandler PA-C Unavailable [phone] Anabela Barakat APRN FLOORING INSTALLER Unavailable Nima France PA-C Unavailable Basilio Morillo DO Unavailable [phone] Fawad York MD Unavailable Roopa Almonte MD Unavailable Augustine Callaway MD Unavailable Maryse Burton PA-C Unavailable Marquita Starkey MD Unavailable Roopa Almonte MD Unavailable Griffin Joshi MD Unavailable Rina Magallon RN Unavailable [phone] Paula Reza MD Primary Care Provider [phone] Griffin Joshi MD Unavailable Roopa Almonte MD Unavailable [phone] Basilio Morillo DO Unavailable Lydia Bernstein-C Unavailable Rosa Maria Love Unavailable [phone] Augustine Callaway MD Unavailable Paula Reza MD Unavailable Keerthi Miner APRN FLOORING INSTALLER Unavailable [phone] Herman, Shahida Cummings APRN FLOORING INSTALLER Unavailable Un available Porsha Michaels APRN FLOORING INSTALLER Unavailable [phone] Paula Reza MD Unavailable Shahida Sutton APRN FLOORING INSTALLER Unavailable Un available Daylin Ludwig Unavailable [phone] Laurel Velasquez MD Unavailable [phone] Daylin Ludwig Unavailable [phone] Paula Reza MD Unavailable Porsha Michaels APRN FLOORING INSTALLER Unavailable [phone] Laurel Velasquez MD Unavailable [phone] Shahida Sutton FACING CUTTING MACHINE OPERATOR FLOORING INSTALLER Unavailable Un available Marilin Montaño FLOORING INSTALLER Unavailable [phone] Esha Dewitt MD Unavailable EvelineHeather MD Unavailable [phone] Paula Reza MD Unavailable Esha Dewitt MD Unavailable [phone] Valdo Escamilla PA-C Unavailable [phone] Nohelia Abarca PA-C Unavailable [phone] Heather Mosquera MD Unavailable Fawad York MD Unavailable [phone] Reason for Visit * Reason Onset Date Comments Referral 09/02/2019 New Eval Encounter Details Date Type Department Care Team (Late st Contact Info) Description 09/02/[address] [facility] [place] [address] [facility] [address] [place] [address] [facility] ([facility] ) Social History [...] Pt understood and hung up. Amberly Nam Career Technical Counselor [facility] [place] * Telephone Encounter - Fabiola Teixeira - 09/02/2019 12:43 PM CDT LVM to schedule new eval Fabiola Teixeira Career Technical Counselor [facility] documented in this encounter Plan of Treatment Not on file documented as of this encounter Visit Diagnoses Not on filedocumented in this encounter Additional Health Concerns Infection Onset Date Last Indicated Resolved Time Rule Out COVID-19 02/15/2020 02/15/2020 02/16/2020 2:32 PM FIRST PRESS OPERATOR Rule Out COVID-19 01/05/2021 01/05/2021 01/06/2021 12:57 PM CDT ESBL 01/05/2021 01/05/2021 Rule Out COVID-19 06/30/2021 06/30/2021 07/01/2021 9:34 AM CDT Rule Out COVID-19 07/25/2021 07/25/2021 07/25/2021 8:02 PM CDT Assessment Noted Time PHQ-9 Depression Total Score: 7 08/13/19 20 1:22 PM CDT documented as of this encounter Care Teams Landfill Gas Collection System Operator Relationship Specialty Start Date End Date Shahida Sutton APRN FLOORING INSTALLER PCP - General Nurse Practitioner 08/17/14 08/04/21 Paula Reza MD [address] [facility] [address] [place] [address] PCP - General Internal Medicine 08/05/21 Shahida Sutton APRN FLOORING INSTALLER Assigned PCP 07/12/14 09/30/21 Carolynn Ramon, KASIE Personal Advocate & Liaison (PAL) 12/17/18 08/07/21 [place] [address] [facility] [place] [address] Assigned Musculoskeletal Provider 12/26/19 08/21/20 Brady Lion MD Assigned Heart and Vascular Provider 12/26/19 08/14/20 Nima France PA-C [address] [facility] [address] [place] [address] Assigned Surgical Provider 05/19/20 08/21/20 Camille Chandler PA-C [address] [facility] S [facility] [address] [place] [address] Assigned Neuroscience Provider 05/19/20 09/14/20 Anabela Barakat APRN FLOORING INSTALLER [address] [place] [address] Assigned Heart and Vascular Provider 08/15/20 08/05/21 Nima France PA-C [address] [facility] [address] [place] [address] Assigned Musculoskeletal Provider 08/22/20 11/13/20 [place] [address] [facility] [place] [address] Assigned Musculoskeletal Provider 11/14/20 12/04/20 Fawad York MD [address] [place], [place] [address] Assigned Musculoskeletal Provider 12/05/20 02/05/21 Roopa Almonte MD [address] [facility] [address] [place] [address] Endocrinology, Diabetes, and Metabolism 01/19/21 [place] [address] [facility] [address] [place] [address] Assigned Musculoskeletal Provider 02/06/21 09/16/21 Maryse Burton PA-C [address] [place] [address] Physician Electric Gas Appliances Demonstrator Dermatology 04/14/21 Marquita Starkey MD [address] [facility] [address] [place], [place] [address] Internal Medicine 05/06/21 05/06/21 Roopa Almonte MD [address] [facility] [address] [place], [place] [address] Hospitalist Endocrinology, Diabetes, and Metabolism 05/30/21 Griffin Joshi MD [address] [facility] [address] [place] [address] Cardiovascular Disease 07/25/21 Rina Magallon, RN Lead Ocean Export Coordinator 07/29/21 07/11/22 Griffin Joshi MD [address] [facility] [address] [place] [address] Assigned Heart and Vascular Provider 08/06/21 10/07/21 Roopa Almonte MD [address] [facility] [address] [place], [place] [address] Assigned Endocrinology Provider 09/10/21 [place] [address] [facility] [place] [address] Assigned Musculoskeletal Provider 09/17/21 10/14/21 Lydia Bernstein PA-C [address] [place] [address] Assigned PCP 10/01/21 10/21/21 Rosa Maria Love CHW Community Health Worker 10/06/21 07/11/22 [place] [address] [place] [address] Assigned Musculoskeletal Provider 10/15/21 04/26/23 Paula Reza MD [address] [place] [address] Assigned PCP 10/22/21 12/23/21 Keerthi Miner APRN FLOORING INSTALLER [address] [place] [address] Assigned Heart and Vascular Provider 10/08/21 02/10/22 Shahida Sutton APRN FLOORING INSTALLER Assigned PCP 12/24/21 03/24/22 Porsha Michaels APRN FLOORING INSTALLER [address] [place] [address] Assigned Heart and Vascular Provider 02/11/22 05/12/22 Paula Reza MD [address] [place] [address] Assigned PCP 03/25/22 04/07/22 Shahida Sutton APRN FLOORING INSTALLER [address] [place] [address] Assigned PCP 04/08/22 06/30/22 Daylin Ludwig, [facility] [address] [place] [address] Cardiac Rehabilitation Therapist 05/16/23 Laurel Velasquez MD [address] [place] [address] Assigned Heart and Vascular Provider 05/13/22 06/30/22 Daylin Ludwig, [facility] [address] [place], [place] [address] Cardiac Rehabilitation Therapist 06/08/22 06/09/23 Paula Reza MD [address] [address] Assigned PCP 07/01/22 07/07/22 Porsha Michaels APRN FLOORING INSTALLER [address] [place] [address] Assigned Heart and Vascular Provider 07/01/22 07/07/22 Laurel Velasquez MD [address] [place] [address] Assigned Heart and Vascular Provider 07/08/22 08/04/22 Shahida Sutton, DUANE FLOORING INSTALLER Assigned PCP 07/08/22 09/08/22 Marilin Montaño, FLOORING INSTALLER [address] [place] [address] Assigned Heart and Vascular Provider 08/05/22 Esha Dewitt MD [address] [address] MD Gastroenterology 09/06/22 Heather Mosquera MD [address] [place] [address] Internal Medicine 09/06/22 Paula Reza MD [address] [facility] [address] [place] [address] Assigned PCP 09/09/22 01/05/23 Esha Dewitt MD [address] [address] Assigned Gastroenterology Provider 09/23/22 Valdo Escamilla PA-C [address] [facility] [address] [place] [address] Assigned Neuroscience Provider 09/30/22 Nohelia Abarca PA-C [address] [place] [address] Physician Electric Gas Appliances Demonstrator Gastroenterology 10/03/22 Heather Mosquera MD [address] [place], [place] [address] Assigned PCP 01/06/23 Fawad York MD [address] [place], [place] [address] Assigned Musculoskeletal Provider 04/27/23 06/25/23 documented as of this encounter
--- OUTSIDE RECORDS SUMMARY | 2023-12-25 08:17 | XMS_ITS | Encounter Summary ---
Author Organization [place] Address [address] [place] [address] Care Team Providers Care Beef Cattle Farmer Name Role Phone HermanShahida huerta APRN CASTINGS TRIMMER Primary Care Provi ford Unavailable Herman, Shahida Cummings APRN CASTINGS TRIMMER Unavailable Un available Herman, Shahida Cummings APRN CASTINGS TRIMMER Unavailable Un available Carolynn Ramon RN Unavailable [phone] Augustine Callaway MD Unavailable Brady Lion MD Unavailable Un available Nima France-C Unavailable [phone] Camille Chandler PA-C Unavailable [phone] Anabela Barakat APRN CASTINGS TRIMMER Unavailable Nima France PA-C Unavailable Basilio Morillo DO Unavailable Fawad York MD Unavailable [phone] Roopa Almonte MD Unavailable [phone] Augustine Callaway MD Unavailable Maryse Burton PA-C Unavailable Marquita Starkey MD Unavailable [phone] Roopa Almonte MD Unavailable [phone] Griffin Joshi MD Unavailable Rina Magallon RN Unavailable [phone] Paula Reza MD Primary Care Provider [phone] Griffin Joshi MD Unavailable Roopa Almonte MD Unavailable [phone] [facility] Bas[facility] Naik Unavailable Lydia Bernstein PA-C Unavailable Rosa Maria Love Unavailable [phone] Augustine Callaway MD Unavailable Paula Reza MD Unavailable Keerthi Miner APRN CASTINGS TRIMMER Unavailable [phone] Herman, Shahida Cummings APRN CASTINGS TRIMMER Unavailable Un available Porsha Michaels APRN CASTINGS TRIMMER Unavailable [phone] Paula Reza MD Unavailable Herman, Shahida Cummings APRN CASTINGS TRIMMER Unavailable Un available Daylin Ludwig Unavailable [phone] Laurel Velasquez MD Unavailable [phone] Daylni Ludwig Unavailable [phone] Paula Reza MD Unavailable Porsha Michaels APRN CASTINGS TRIMMER Unavailable [phone] Laurel Velasquez MD Unavailable [phone] Herman, Shahida Cummings APRN CASTINGS TRIMMER Unavailable Un available Marilin Montaño CASTINGS TRIMMER Unavailable [phone] Esha Dewitt MD Unavailable [phone] Heather Mosquera MD Unavailable [phone] Paula Reza MD Unavailable Esha Dewitt MD Unavailable [phone] Valdo Escamilla PA-C Unavailable [phone] Nohelia Abarca PA-C Unavailable [phone] Heather Mosquera MD Unavailable [phone] Fawad York MD Unavailable [phone] Encounter Details Date Type Department Care Team (Late st Contact Info) Description 09/23/2015 MyC Medical Advice [address] [address] Matilde Allen CMA Social History [...] Out COVID-19 02/15/2020 02/15/2020 02/16/2020 2:32 PM STRESS ANALYST Rule Out COVID-19 01/05/2021 01/05/2021 01/06/2021 12:57 PM CDT ESBL 01/05/2021 01/05/2021 Rule Out COVID-19 06/30/2021 06/30/2021 07/01/2021 9:34 AM CDT Rule Out COVID-19 07/25/2021 07/25/2021 07/25/2021 8:02 PM CDT Assessment Noted Time PHQ-9 Depression Total Score: 8 10/01/19 16 7:13 AM CDT documented as of this encounter Care Teams Beef Cattle Farmer Relationship Specialty Start Date End Date Shahida Sutton APRN CASTINGS TRIMMER PCP - General Nurse Practitioner 08/17/14 08/04/21 Shahida Sutton, DUANE CASTINGS TRIMMER PCP - Assigned PCP 07/12/14 05/07/18 Paula Reza MD [address] [place] [address] PCP - General Internal Medicine 08/05/21 Shahida Sutton, EPIDEMIOLOGY INTERN CASTINGS TRIMMER Assigned PCP 07/12/14 09/30/21 Carolynn Ramon, KASIE Personal Advocate & Liaison (PAL) 12/17/18 08/07/21 [place] [address] [place] [address] Assigned Musculoskeletal Provider 12/26/19 08/21/20 Brady Lion MD Assigned Heart and Vascular Provider 12/26/19 08/14/20 Nima France PA-C [address] [place] [address] Assigned Surgical Provider 05/19/20 08/21/20 Camille Chandler PA-C [address] [place] [address] Assigned Neuroscience Provider 05/19/20 09/14/20 Anabela Barakat APRN CASTINGS TRIMMER [address] [place] [address] Assigned Heart and Vascular Provider 08/15/20 08/05/21 Nima France PA-C [address] [place] [address] Assigned Musculoskeletal Provider 08/22/20 11/13/20 [place] [address] [facility] [place] [address] Assigned Musculoskeletal Provider 11/14/20 12/04/20 Fawad York MD [address] [place], [place] [address] Assigned Musculoskeletal Provider 12/05/20 02/05/21 Roopa Almonte MD [address] [facility] [address] [place], [place] [address] Endocrinology, Diabetes, and Metabolism 01/19/21 [place] [address] [facility] [address] [place] [address] Assigned Musculoskeletal Provider 02/06/21 09/16/21 Maryse Burton PA-C [address] [place] [address] Physician Miter Sawyer Dermatology 04/14/21 Marquita Starkey MD [address] [facility] [address] [place], [place] [address] Internal Medicine 05/06/21 05/06/21 Roopa Almonte MD [address] [place] [address] Hospitalist Endocrinology, Diabetes, and Metabolism 05/30/21 Griffin Joshi MD [address] [facility] [address] [place] [address] Cardiovascular Disease 07/25/21 Rina Magallon, RN Lead Document Examiner 07/29/21 07/11/22 Griffin Joshi MD [address] [place] [address] Assigned Heart and Vascular Provider 08/06/21 10/07/21 Roopa Almonte MD [address] [place] [address] 200 [place] [address] Assigned Endocrinology Provider 09/10/21 [place] [address] [place] [address] Assigned Musculoskeletal Provider 09/17/21 10/14/21 Lydia Bernstein PA-C [address] [place] [address] Assigned PCP 10/01/21 10/21/21 Rosa Maria Love CHW Community Health Worker 10/06/21 07/11/22 [place] [address] [facility] [address] [place] [address] Assigned Musculoskeletal Provider 10/15/21 04/26/23 Paula Reza MD [address] [facility] [address] [place], [place] [address] Assigned PCP 10/22/21 12/23/21 Keerthi Miner EPIDEMIOLOGY INTERN CASTINGS TRIMMER [address] [place] [id number] Assigned Heart and Vascular Provider 10/08/21 02/10/22 Shahida Sutton APRN CASTINGS TRIMMER Assigned PCP 12/24/21 03/24/22 Porsha Michaels APRN CASTINGS TRIMMER [address] [place] [address] Assigned Heart and Vascular Provider 02/11/22 05/12/22 Paula Reza MD [address] [facility] 200 [place] [address] Assigned PCP 03/25/22 04/07/22 Shahida Sutton EPIDEMIOLOGY INTERN CASTINGS TRIMMER [address] [place] [address] Assigned PCP 04/08/22 06/30/22 Daylin Ludwig, MIKI [facility] [address] [place] [address] Cardiac Rehabilitation Therapist 05/16/23 Laurel Velasquez MD [address] [place] [address] Assigned Heart and Vascular Provider 05/13/22 06/30/22 Daylin Ludwig, MI[facility] [address] [place] [address] Cardiac Rehabilitation Therapist 06/08/22 06/09/23 Paula Reza MD [address] [place] [address] Assigned PCP 07/01/22 07/07/22 Porsha Michaels APRN CASTINGS TRIMMER [address] [place] [address] Assigned Heart and Vascular Provider 07/01/22 07/07/22 Laurel Velasquez MD [address] [place] [address] Assigned Heart and Vascular Provider 07/08/22 08/04/22 Shahida Sutton APRN CASTINGS TRIMMER Assigned PCP 07/08/22 09/08/22 Marilin Montaño CASTINGS TRIMMER [address] [place] [address] Assigned Heart and Vascular Provider 08/05/22 Esha Dewitt MD [address] [place] [address] Gastroenterology 09/06/22 Heather Mosquera MD [address] [place] [address] Internal Medicine 09/06/22 Paula Reza MD [address] [place] [address] Assigned PCP 09/09/22 01/05/23 Esha Dewitt MD [address] [place] [address] Assigned Gastroenterology Provider 09/23/22 Valdo Escamilla PA-C [address] [facility] [address] [place] [address] Assigned Neuroscience Provider 09/30/22 Nohelia Abarca PA-C [address] [place] [address] Physician Miter Sawyer Gastroenterology 10/03/22 Heather Mosquera MD [address] [facility] [address] [place] [address] Assigned PCP 01/06/23 Fawad York MD [address] [place] [address] Assigned Musculoskeletal Provider 04/27/23 06/25/23 documented as of this encounter
--- OUTSIDE RECORDS SUMMARY | 2023-12-25 08:17 | XMS_ITS | Encounter Summary ---
Author Organization [place] Address [address] [place] [address] Care Team Providers Care Marking 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 Name Role Phone HermanShahida huerta APRN CHICKEN HATCHERY HELPER Primary Care Provi ford Unavailable Herman, Shahida Cummings APRN CHICKEN HATCHERY HELPER Unavailable Un available Herman, Shahida Cummings APRN CHICKEN HATCHERY HELPER Unavailable Un available Carolynn Ramon RN Unavailable [phone] Augustine Callaway MD Unavailable Brady Lion MD Unavailable Un available Nima France-C Unavailable [phone] Camille Chandler PA-C Unavailable [phone] Anabela Barakat APRN CHICKEN HATCHERY HELPER Unavailable Nima France PA-C Unavailable Basilio Morillo DO Unavailable [phone] Fawad York MD Unavailable [phone] Roopa Almonte MD Unavailable [phone] Augustine Callaway MD Unavailable Maryse Burton PA-C Unavailable [phone] Marquita Starkey MD Unavailable [phone] Roopa Almonte MD Unavailable [phone] Griffin Joshi MD Unavailable Rina Magallon RN Unavailable [phone] Paula Reza MD Primary Care Provider [phone] Griffin Joshi MD Unavailable Roopa Almonte MD Unavailable [phone] [facility] Basilio Naik Unavailable Lydia Bernstein PA-C Unavailable Rosa Maria Love Unavailable [phone] Augustine Callaway MD Unavailable Paula Reza MD Unavailable Keerthi Miner APRN CHICKEN HATCHERY HELPER Unavailable [phone] Herman, Shahida Cummings APRN CHICKEN HATCHERY HELPER Unavailable Un available Porsha Michaels APRN CHICKEN HATCHERY HELPER Unavailable [phone] Paula Reza MD Unavailable Herman, Shahida Cummings APRN CHICKEN HATCHERY HELPER Unavailable Un available Daylin Ludwig Unavailable [phone] Laurel Velasquez MD Unavailable [phone] Daylin Ludwig Unavailable [phone] Paula Reza MD Unavailable Porsha Michaels APRN CHICKEN HATCHERY HELPER Unavailable [phone] Laurel Velasquez MD Unavailable [phone] Herman, Shahida Cummings APRN CHICKEN HATCHERY HELPER Unavailable Un available Marilin Montaño CHICKEN HATCHERY HELPER Unavailable [phone] Esha Dewitt MD Unavailable [phone] Heather Mosquera MD Unavailable [phone] Paula Reza MD Unavailable Esha Dewitt MD Unavailable [phone] Valdo Escamilla PA-C Unavailable [phone] Nohelia Abarca PA-C Unavailable [phone] Heather Mosquera MD Unavailable Fawad York MD Unavailable [phone] Encounter Details Date Type Department Care Team (Late st Contact Info) Description 12/28/2015 MyC Medical Advice [address] [address] Matilde Allen CMA Social History [...] Out COVID-19 02/15/2020 02/15/2020 02/16/2020 2:32 PM CARDIAC CATH LAB RADIOLOGY TECHNOLOGIST Rule Out COVID-19 01/05/2021 01/05/2021 01/06/2021 12:57 PM CDT ESBL 01/05/2021 01/05/2021 Rule Out COVID-19 06/30/2021 06/30/2021 07/01/2021 9:34 AM CDT Rule Out COVID-19 07/25/2021 07/25/2021 07/25/2021 8:02 PM CDT Assessment Noted Time PHQ-9 Depression Total Score: 7 11/17/19 16 7:18 AM CDT documented as of this encounter Care Teams Marking 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 Relationship Specialty Start Date End Date Shahida Sutton APRN CHICKEN HATCHERY HELPER PCP - General Nurse Practitioner 08/17/14 08/04/21 Shahida Sutton, DUANE CHICKEN HATCHERY HELPER PCP - Assigned PCP 07/12/14 05/07/18 Paula Reza MD [address] [place] [address] PCP - General Internal Medicine 08/05/21 Shahida Sutton, MANAGER DATABASE CHICKEN HATCHERY HELPER Assigned PCP 07/12/14 09/30/21 Carolynn Ramon, KASIE Personal Advocate & Liaison (PAL) 12/17/18 08/07/21 [place] [address] [address] [place] [address] Assigned Musculoskeletal Provider 12/26/19 08/21/20 Brady Lion MD Assigned Heart and Vascular Provider 12/26/19 08/14/20 Nima France PA-C [address] [place] [address] Assigned Surgical Provider 05/19/20 08/21/20 Camille Chandler PA-C [address] [place] [address] Assigned Neuroscience Provider 05/19/20 09/14/20 Anabela Barakat APRN CHICKEN HATCHERY HELPER [address] [place] [address] Assigned Heart and Vascular Provider 08/15/20 08/05/21 Nima France PA-C [address] [place] [address] Assigned Musculoskeletal Provider 08/22/20 11/13/20 [place] [address] [facility] [place] [address] Assigned Musculoskeletal Provider 11/14/20 12/04/20 Fawad York MD [address] [place], [place] [address] Assigned Musculoskeletal Provider 12/05/20 02/05/21 Roopa Almonte MD [address] [facility] [address] [place], [place] [address] Endocrinology, Diabetes, and Metabolism 01/19/21 [place] [address] [facility] [address] [place] [address] Assigned Musculoskeletal Provider 02/06/21 09/16/21 Maryse Burton PA-C [address] [place] [address] Physician Manager Paid Dermatology 04/14/21 Marquita Starkey MD [address] [facility] [address] [place], [place] [address] Internal Medicine 05/06/21 05/06/21 Roopa Almonte MD [address] [place] [address] Hospitalist Endocrinology, Diabetes, and Metabolism 05/30/21 Griffin Joshi MD [address] [facility] [address] [place] [address] Cardiovascular Disease 07/25/21 Rina Magallon, RN Lead Slaughterer Religious Ritual 07/29/21 07/11/22 Griffin Joshi MD [address] [place] [address] Assigned Heart and Vascular Provider 08/06/21 10/07/21 Roopa Almonte MD [address] [place] [address] 200 [place] [address] Assigned Endocrinology Provider 09/10/21 [place] [address] [facility] [place] [address] Assigned Musculoskeletal Provider 09/17/21 10/14/21 Lydia Bernstein PA-C [address] [place] [address] Assigned PCP 10/01/21 10/21/21 Rosa Maria Love CHW Community Health Worker 10/06/21 07/11/22 [place] [address] [facility] [address] [place] [address] Assigned Musculoskeletal Provider 10/15/21 04/26/23 Paula Reza MD [address] [facility] [address] [place], [place] [address] Assigned PCP 10/22/21 12/23/21 Keerthi Miner MANAGER DATABASE CHICKEN HATCHERY HELPER [address] [place] [address] Assigned Heart and Vascular Provider 10/08/21 02/10/22 Shahida Sutton APRN CHICKEN HATCHERY HELPER Assigned PCP 12/24/21 03/24/22 Porsha Michaels APRN CHICKEN HATCHERY HELPER [address] [place] [address] Assigned Heart and Vascular Provider 02/11/22 05/12/22 Paula Reza MD [address] [facility] 200 [place] [address] Assigned PCP 03/25/22 04/07/22 Shahida Sutton MANAGER DATABASE CHICKEN HATCHERY HELPER [address] [place] [address] Assigned PCP 04/08/22 06/30/22 Daylin Ludwig, MIKI [facility] [address] [place] [address] Cardiac Rehabilitation Therapist 05/16/23 Laurel Velasquez MD [address] [place] [address] Assigned Heart and Vascular Provider 05/13/22 06/30/22 Daylin Ludwig, [facility] [address] [place] [address] Cardiac Rehabilitation Therapist 06/08/22 06/09/23 Paula Reza MD [address] [place] [address] Assigned PCP 07/01/22 07/07/22 Porsha Michaels APRN CHICKEN HATCHERY HELPER [address] [place] [address] Assigned Heart and Vascular Provider 07/01/22 07/07/22 Laurel Velasquez MD [address] [place] [address] Assigned Heart and Vascular Provider 07/08/22 08/04/22 Shahida Sutton APRN CHICKEN HATCHERY HELPER Assigned PCP 07/08/22 09/08/22 Marilin Montaño CHICKEN HATCHERY HELPER [address] [place] [address] Assigned Heart and Vascular Provider 08/05/22 Esha Dewitt MD [address] [place] [address] Gastroenterology 09/06/22 Heather Mosquera MD [address] [place] [address] Internal Medicine 09/06/22 Paula Reza MD [address] [place] [address] Assigned PCP 09/09/22 01/05/23 Esha Dewitt MD [address] [place] [address] Assigned Gastroenterology Provider 09/23/22 Valdo Escamilla PA-C [address] [facility] [address] [place] [address] Assigned Neuroscience Provider 09/30/22 Nohelia Abarca PA-C [address] [place] [address] Physician Manager Paid Gastroenterology 10/03/22 Heather Mosquera MD [address] [facility] [address] [place] [address] Assigned PCP 01/06/23 Fawad York MD [address] [place] [address] Assigned Musculoskeletal Provider 04/27/23 06/25/23 documented as of this encounter
--- OUTSIDE RECORDS SUMMARY | 2023-12-25 08:17 | XMS_ITS | Encounter Summary ---
Author Organization Register Address [address] [place] [address] Care Team Providers Care Rack Puncher Name Role Phone HermanShahida huerta APRN SHANK ARCHER Primary Care Provi ford Unavailable Herman, Shahida Cummings APRN SHANK ARCHER Unavailable Un available Herman, Shahida Cummings APRN SHANK ARCHER Unavailable Un available Carolynn Ramon RN Unavailable [phone] Augustine Callaway MD Unavailable Brady Lion MD Unavailable Un available Nima France-C Unavailable [phone] Camille Chandler PA-C Unavailable [phone] Anabela Barakat APRN SHANK ARCHER Unavailable Nima France PA-C Unavailable Basilio Morillo DO Unavailable [phone] Fawad York MD Unavailable [phone] Roopa Almonte MD Unavailable [phone] Augustine Callaway MD Unavailable Maryse Burton PA-C Unavailable Marquita Starkey MD Unavailable [phone] Roopa Almonte MD Unavailable [phone] Griffin Joshi MD Unavailable Rina Magallon RN Unavailable [phone] Paula Reza MD Primary Care Provider [phone] Griffin Joshi MD Unavailable Roopa Almonte MD Unavailable [phone] [facility] Basilio Naik Unavailable Lydia Bernstein PA-C Unavailable Rosa Maria Love Unavailable [phone] Augustine Callaway MD Unavailable Paula Reza MD Unavailable Keerthi Miner APRN SHANK ARCHER Unavailable [phone] Herman, Shahida Cummings APRN SHANK ARCHER Unavailable Un available Porsha Michaels APRN SHANK ARCHER Unavailable [phone] Paula Reza MD Unavailable Herman, Shahida Cummings APRN SHANK ARCHER Unavailable Un available Daylin Ludwig Unavailable [phone] Laurel Velasquez MD Unavailable [phone] Daylin Ludwig Unavailable [phone] Paula Reza MD Unavailable Porsha Michaels APRN SHANK ARCHER Unavailable [phone] Laurel Velasquez MD Unavailable [phone] Herman, Shahida Cummings APRN SHANK ARCHER Unavailable Un available Marilin Montaño SHANK ARCHER Unavailable [phone] Esha Dewitt MD Unavailable [phone] Heather Mosquera MD Unavailable [phone] Paula Reza MD Unavailable Esha Dewitt MD Unavailable [phone] Valdo Escamilla PA-C Unavailable Nohelia Abarca PA-C Unavailable [phone] Heather Mosquera MD Unavailable Fawad York MD Unavailable [phone] Encounter Details Date Type Department Care Team (Late st Contact Info) Description 04/07/2015 MyC Medical Advice [address] [address] Matilde Allen CMA Social History [...] Out COVID-19 02/15/2020 02/15/2020 02/16/2020 2:32 PM SHOE SINGER Rule Out COVID-19 01/05/2021 01/05/2021 01/06/2021 12:57 PM CDT ESBL 01/05/2021 01/05/2021 Rule Out COVID-19 06/30/2021 06/30/2021 07/01/2021 9:34 AM CDT Rule Out COVID-19 07/25/2021 07/25/2021 07/25/2021 8:02 PM CDT Assessment Noted Time PHQ-9 Depression Total Score: 5 01/31/20 15 7:38 AM SHOE SINGER documented as of this encounter Care Teams Rack Puncher Relationship Specialty Start Date End Date Shahida Sutton APRN SHANK ARCHER PCP - General Nurse Practitioner 08/17/14 08/04/21 Shahida Sutton, DUANE SHANK ARCHER PCP - Assigned PCP 07/12/14 05/07/18 Paula Reza MD [address] [place] [address] PCP - General Internal Medicine 08/05/21 Shahida Sutton, TANK BUILDER SHANK ARCHER Assigned PCP 07/12/14 09/30/21 Carolynn Ramon, KASIE Personal Advocate & Liaison (PAL) 12/17/18 08/07/21 [place] [address] [place] [address] [place] [address] Assigned Musculoskeletal Provider 12/26/19 08/21/20 Brady Lion MD Assigned Heart and Vascular Provider 12/26/19 08/14/20 Nima France PA-C [address] [facility] [address] [place] [address] Assigned Surgical Provider 05/19/20 08/21/20 Camille Chandler PA-C [address] [facility] [address] [place] [address] Assigned Neuroscience Provider 05/19/20 09/14/20 Anabela Barakat APRN SHANK ARCHER [address] [place] [address] Assigned Heart and Vascular Provider 08/15/20 08/05/21 Nima France PA-C [address] [place] [address] Assigned Musculoskeletal Provider 08/22/20 11/13/20 [place] [address] [facility] [place] [address] Assigned Musculoskeletal Provider 11/14/20 12/04/20 Fawad York MD [address] [place], [place] [address] Assigned Musculoskeletal Provider 12/05/20 02/05/21 Roopa Almonte MD [address] [facility] 200 [place] [address] Endocrinology, Diabetes, and Metabolism 01/19/21 [place] [address] [facility] 300 [place] [address] Assigned Musculoskeletal Provider 02/06/21 09/16/21 Maryse Burton PA-C 5200 [place] [address] Physician Marketing Communication Manager Dermatology 04/14/21 Marquita Starkey MD [address] [facility] 200 [place] [address] Internal Medicine 05/06/21 05/06/21 Roopa Almonte MD [address] [place] [address] Hospitalist Endocrinology, Diabetes, and Metabolism 05/30/21 Griffin Joshi MD [address] [facility] [address] [place] [address] Cardiovascular Disease 07/25/21 Rina Magallon, RN Lead Embedded Linux Engineer 07/29/21 07/11/22 Griffin Joshi MD [address] [place] [address] Assigned Heart and Vascular Provider 08/06/21 10/07/21 Roopa Almonte MD [address] [place] [address] 200 [place], [place] [address] Assigned Endocrinology Provider 09/10/21 [place] [address] [facility] [place] [address] Assigned Musculoskeletal Provider 09/17/21 10/14/21 Lydia Bernstein PA-C [address] [facility] [address] [place] [address] Assigned PCP 10/01/21 10/21/21 Rosa Maria Love CHW Community Health Worker 10/06/21 07/11/22 [place] [address] [facility] 300 [place] [address] Assigned Musculoskeletal Provider 10/15/21 04/26/23 Paula Reza MD [address] [facility] 200 [place], [place] [address] Assigned PCP 10/22/21 12/23/21 Keerthi Miner APRN SHANK ARCHER [address] [place] [address] Assigned Heart and Vascular Provider 10/08/21 02/10/22 Shahida Sutton APRN SHANK ARCHER Assigned PCP 12/24/21 03/24/22 Porsha Michaels APRN SHANK ARCHER [address] [place] [address] Assigned Heart and Vascular Provider 02/11/22 05/12/22 Paula Reza MD [address] [facility] 200 [place] [address] Assigned PCP 03/25/22 04/07/22 Shahida Sutton TANK BUILDER SHANK ARCHER [address] [place] [address] Assigned PCP 04/08/22 06/30/22 Daylin Ludwig, MIKI [facility] [address] [place] [address] Cardiac Rehabilitation Therapist 05/16/23 Laurel Velasquez MD [address] [place] [address] Assigned Heart and Vascular Provider 05/13/22 06/30/22 Daylin Ludwig, MIKI [facility] [address] [place] [address] Cardiac Rehabilitation Therapist 06/08/22 06/09/23 Paula Reza MD [address] [place] [address] Assigned PCP 07/01/22 07/07/22 Porsha Michaels APRN SHANK ARCHER [address] [place] [address] Assigned Heart and Vascular Provider 07/01/22 07/07/22 Laurel Velasquez MD [address] [place] [address] Assigned Heart and Vascular Provider 07/08/22 08/04/22 Shahida Sutton APRN SHANK ARCHER Assigned PCP 07/08/22 09/08/22 Marilin Montaño, SHANK ARCHER [address] [place] [address] Assigned Heart and Vascular Provider 08/05/22 Esha Dewitt MD [address] [place] [id number] Gastroenterology 09/06/22 Heather Mosquera MD [address] [place] [address] Internal Medicine 09/06/22 Paula Reza MD [address] [place] [address] Assigned PCP 09/09/22 01/05/23 Esha Dewitt MD [address] [place] [address] Assigned Gastroenterology Provider 09/23/22 Valdo Escamilla PA-C 6[address] [facility] 103 [place] [address] Assigned Neuroscience Provider 09/30/22 Nohelia Abarca PA-C [address]50 [place] [address] Physician Marketing Communication Manager Gastroenterology 10/03/22 Heather Mosquera MD [address]45 [facility] 150 [place] [address] Assigned PCP 01/06/23 Fawad York MD [address] [place] [address] Assigned Musculoskeletal Provider 04/27/23 06/25/23 documented as of this encounter
--- OUTSIDE RECORDS SUMMARY | 2023-12-25 08:17 | XMS_ITS | Encounter Summary ---
Author Organization [place] Address [address] [place] [address] Care Team Providers Care Biofuels Production Technician Name Role Phone HermanShahida huerta APRN INTERIOR WALL ASSEMBLER Primary Care Provi ford Unavailable Herman, Shahida Cummings APRN INTERIOR WALL ASSEMBLER Unavailable Un available Herman, Shahida Cummings APRN INTERIOR WALL ASSEMBLER Unavailable Un available Carolynn Ramon RN Unavailable [phone] Augustine Callaway MD Unavailable Brady Lion MD Unavailable Un available Nima France-C Unavailable [phone] Camille Chandler PA-C Unavailable [phone] Anabela Barakat APRN INTERIOR WALL ASSEMBLER Unavailable Nima France PA-C Unavailable Basilio Morillo DO Unavailable [phone] Fawad York MD Unavailable [phone] Roopa Almonte MD Unavailable [phone] Augustine Callaway MD Unavailable Maryse Burton PA-C Unavailable Marquita Starkey MD Unavailable Roopa Almonte MD Unavailable [phone] Griffin Joshi MD Unavailable Rina Magallon RN Unavailable [phone] Paula Reza MD Primary Care Provider [phone] Griffin Joshi MD Unavailable Roopa Almonte MD Unavailable [phone] [facility] Basilio Naik Unavailable Lydia Bernstein PA-C Unavailable Rosa Maria Love Unavailable [phone] Augustine Callaway MD Unavailable Paula Reza MD Unavailable Keerthi Miner APRN INTERIOR WALL ASSEMBLER Unavailable [phone] Herman, Shahida Cummings APRN INTERIOR WALL ASSEMBLER Unavailable Un available Porsha Michaels APRN INTERIOR WALL ASSEMBLER Unavailable [phone] Paula Reza MD Unavailable Herman, Shahida Cummings APRN INTERIOR WALL ASSEMBLER Unavailable Un available Daylin Ludwig Unavailable [phone] Laurel Velasquez MD Unavailable [phone] Daylin Ludwig Unavailable [phone] Paula Reza MD Unavailable Porsha Michaels APRN INTERIOR WALL ASSEMBLER Unavailable [phone] Laurel Velasquez MD Unavailable [phone] Herman, Shahida Cummings APRN INTERIOR WALL ASSEMBLER Unavailable Un available Marilin Montaño INTERIOR WALL ASSEMBLER Unavailable [phone] Esha Dewitt MD Unavailable [phone] Heather Mosquera MD Unavailable [phone] Paula Reza MD Unavailable Esha Dewitt MD Unavailable [phone] Valdo Escamilla PA-C Unavailable [phone] Nohelia Abarca PA-C Unavailable [phone] Heather Mosquera MD Unavailable Fawad York MD Unavailable Reason for Visit * Reason Onset Date Comments Refill Request 04/17/2018 zolpidem Encounter Details Date Type Department Care Team (Late st Contact Info) Description 04/17/2018 MyC Refill [address] [address] Shahida Sutton APRN CNP Refill [...] Return Visit with Jing Roper APRN CNP [facility] ([facility] [address] [place] [address]. [facility] [address] Requested Prescriptions Pending Prescriptions Disp Refills ??? zolpidem (AMBIEN) 10 MG tablet 30 tablet 3 Sig: Take 1 tablet (10 mg) by mouth nightly as needed for sleep There is no refill protocol information for this order Paula Calderon RN, BSN Message handled by Nurse Triage. ETES TERRITORY MANAGER documented in this encounter Plan of Treatment Not on file documented as of this encounter Visit Diagnoses Diagnosis Other insomnia documented in this encounter Additional Health Concerns Infection Onset Date Last Indicated Resolved Time Rule Out COVID-19 02/15/2020 02/15/2020 02/16/2020 2:32 PM DIABETES TERRITORY MANAGER Rule Out COVID-19 01/05/2021 01/05/2021 01/06/2021 12:57 PM CDT ESBL 01/05/2021 01/05/2021 Rule Out COVID-19 06/30/2021 06/30/2021 07/01/2021 9:34 AM CDT Rule Out COVID-19 07/25/2021 07/25/2021 07/25/2021 8:02 PM CDT Assessment Noted Time PHQ-9 Depression Total Score: 6 12/21/19 18 7:06 AM CDT documented as of this encounter Care Teams Biofuels Production Technician Relationship Specialty Start Date End Date Shahida Sutton APRN INTERIOR WALL ASSEMBLER PCP - General Nurse Practitioner 08/17/14 08/04/21 Shahida Sutton APRN INTERIOR WALL ASSEMBLER PCP - Assigned PCP 07/12/14 05/07/18 Paula Reza MD [address] [place] [address] PCP - General Internal Medicine 08/05/21 Shahida Sutton APRN INTERIOR WALL ASSEMBLER Assigned PCP 07/12/14 09/30/21 Carolynn Ramon RN Personal Advocate & Liaison (PAL) 12/17/18 08/07/21 [place] [address] [place] [address] Assigned Musculoskeletal Provider 12/26/19 08/21/20 Brady Lion MD Assigned Heart and Vascular Provider 12/26/19 08/14/20 Nima France PA-C 6545 [facility] [address] [place] [address] Assigned Surgical Provider 05/19/20 08/21/20 Camille Chandler PA-C [address] [facility] [address] [place] [address] Assigned Neuroscience Provider 05/19/20 09/14/20 Anabela Barakat APRN CNP [address]00 [place] [address] Assigned Heart and Vascular Provider 08/15/20 08/05/21 Nima France PA-C [address] [facility] 450 [place] [address] Assigned Musculoskeletal Provider 08/22/20 11/13/20 [place] [address] [facility] [place] [address] Assigned Musculoskeletal Provider 11/14/20 12/04/20 Fawad York MD 909 [place] [address] Assigned Musculoskeletal Provider 12/05/20 02/05/21 Roopa Almonte MD [address] [facility] 200 [place] [address] Endocrinology, Diabetes, and Metabolism 01/19/21 [place] [address] [facility] 300 [facility] [place] [address] Assigned Musculoskeletal Provider 02/06/21 09/16/21 Maryse Burton PA-C [address] [place] [address] Physician Front Sight Attacher Dermatology 04/14/21 Marquita Starkey MD [address] [facility] 200 [place] [address] Internal Medicine 05/06/21 05/06/21 Roopa Almonte MD [address] [facility] 200 [place] [address] Hospitalist Endocrinology, Diabetes, and Metabolism 05/30/21 Griffin Joshi MD [address] [facility] [address] [place] [address] Cardiovascular Disease 07/25/21 Rina Magallon, RN Lead Cashier Payments Received 07/29/21 07/11/22 Griffin Joshi MD [address] [facility] [address] [place] [address] Assigned Heart and Vascular Provider 08/06/21 10/07/21 Roopa Almonte MD [address] [facility] 200 [place], [place] [address] Assigned Endocrinology Provider 09/10/21 [place] [address] [facility] [address] [place] 761079 Assigned Musculoskeletal Provider 09/17/21 10/14/21 Lydia Bernsetin PA-C [address] [place] [address] Assigned PCP 10/01/21 10/21/21 Rosa Maria Love CHW Community Health Worker 10/06/21 07/11/22 [place] [address] [place] [address] Assigned Musculoskeletal Provider 10/15/21 04/26/23 Paula Reza MD [address] [place] [address] Assigned PCP 10/22/21 12/23/21 Keerthi Miner APRN INTERIOR WALL ASSEMBLER [address] [place] [address] Assigned Heart and Vascular Provider 10/08/21 02/10/22 Shahida Sutton APRN INTERIOR WALL ASSEMBLER Assigned PCP 12/24/21 03/24/22 Porsha Michaels APRN INTERIOR WALL ASSEMBLER [address] [place] [address] Assigned Heart and Vascular Provider 02/11/22 05/12/22 Paula Reza MD [address] [place] [address] Assigned PCP 03/25/22 04/07/22 Shahida Sutton APRN INTERIOR WALL ASSEMBLER [address] [place] [address] Assigned PCP 04/08/22 06/30/22 Daylin Ludwig, EP [facility] [address] [place] [address] Cardiac Rehabilitation Therapist 05/16/23 Laurel Velasquez MD [address] [place] [address] Assigned Heart and Vascular Provider 05/13/22 06/30/22 Daylin Ludwig, EP [facility] [address] [place] [address] Cardiac Rehabilitation Therapist 06/08/22 06/09/23 Paula Reza MD [address] [place] [address] Assigned PCP 07/01/22 07/07/22 Porsha Michaels APRN INTERIOR WALL ASSEMBLER [address] [place] [address] Assigned Heart and Vascular Provider 07/01/22 07/07/22 Laurel Velasquez MD [address] [place] [address] Assigned Heart and Vascular Provider 07/08/22 08/04/22 Shahida Sutton APRN INTERIOR WALL ASSEMBLER Assigned PCP 07/08/22 09/08/22 Marilin Montaño, PAULA [address] [place] [address] Assigned Heart and Vascular Provider 08/05/22 Esha Dewitt MD [address] [facility] 36 [place] [address] MD Gastroenterology 09/06/22 Heather Mosquera MD [address] [place] [address] Internal Medicine 09/06/22 Paula Reza MD [address] [facility] 200 [place] [address] Assigned PCP 09/09/22 01/05/23 Esha Dewitt MD 420 [facility] [address] [place] [address] Assigned Gastroenterology Provider 09/23/22 Valdo Escamilla PA-C 6[address] [facility] [address] [address] [place] [address] Assigned Neuroscience Provider 09/30/22 Nohelia Abarca PA-C 2450 [facility] [place], [place] [address] Physician Front Sight Attacher Gastroenterology 10/03/22 Heather Mosquera MD [address] [place] [address] Assigned PCP 01/06/23 Fawad York MD [address] [place] [address] Assigned Musculoskeletal Provider 04/27/23 06/25/23 documented as of this encounter
--- OUTSIDE RECORDS SUMMARY | 2023-12-25 08:17 | XMS_ITS | Encounter Summary ---
Author Organization [facility] Address [address] [place] [address] Care Team Providers Care Technical Artist Name Role Phone HermanShahida huerta APRN TRAILER TECHNICIAN Primary Care Provi ford Unavailable Herman, Shahida Cummings APRN TRAILER TECHNICIAN Unavailable Un available Herman, Shahida Cummings APRN TRAILER TECHNICIAN Unavailable Un available Carolynn Ramon RN Unavailable [phone] Augustine Callaway MD Unavailable Brady Lion MD Unavailable Un available Nima France-C Unavailable [phone] Camille Chandler PA-C Unavailable [phone] Anabela Barakat APRN TRAILER TECHNICIAN Unavailable Nima France PA-C Unavailable Basilio Morillo DO Unavailable Fawad York MD Unavailable [phone] Roopa Almonte MD Unavailable [phone] Augustine Callaway MD Unavailable Maryse Burton PA-C Unavailable [phone] Marquita Starkey MD Unavailable Roopa Almonte MD Unavailable [phone] Griffin Joshi MD Unavailable Rina Magallon RN Unavailable [phone] Paula Reza MD Primary Care Provider [phone] Griffin Joshi MD Unavailable Roopa Almonte MD Unavailable [phone] [facility] Basilio Naik Unavailable Lydia Bernstein PA-C Unavailable Rosa Maria Love Unavailable [phone] Augustine Callaway MD Unavailable Paula Reza MD Unavailable Keerthi Miner APRN TRAILER TECHNICIAN Unavailable [phone] Herman, Shahida Cummings APRN TRAILER TECHNICIAN Unavailable Un available Porsha Michaels APRN TRAILER TECHNICIAN Unavailable [phone] Paula Reza MD Unavailable Herman, Shahida Cummings APRN TRAILER TECHNICIAN Unavailable Un available Daylin Ludwig Unavailable [phone] Laurel Velasquez MD Unavailable [phone] Daylin Ludwig Unavailable [phone] Paula Reza MD Unavailable Porsha Michaels APRN TRAILER TECHNICIAN Unavailable [phone] Laurel Velasquez MD Unavailable [phone] Herman, Shahida Cummings APRN TRAILER TECHNICIAN Unavailable Un available Marilin Montaño TRAILER TECHNICIAN Unavailable [phone] Esha Dewitt MD Unavailable [phone] Heather Mosquera MD Unavailable [phone] Paula Reza MD Unavailable Esha Dewitt MD Unavailable [phone] Valdo Escamilla PA-C Unavailable Nohelia Abarca PA-C Unavailable Heather Mosquera MD Unavailable Fawad York MD Unavailable [phone] Encounter Details Date Type Department Care Team (Late st Contact Info) Description 08/01/2016 MyC Medical Advice [address] [address] Matilde Allen CMA Social History [...] Out COVID-19 02/15/2020 02/15/2020 02/16/2020 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 Rule Out COVID-19 01/05/2021 01/05/2021 01/06/2021 12:57 PM CDT ESBL 01/05/2021 01/05/2021 Rule Out COVID-19 06/30/2021 06/30/2021 07/01/2021 9:34 AM CDT Rule Out COVID-19 07/25/2021 07/25/2021 07/25/2021 8:02 PM CDT Assessment Noted Time PHQ-9 Depression Total Score: 5 05/27/19 17 7:07 AM CDT documented as of this encounter Care Teams Technical Artist Relationship Specialty Start Date End Date Shahida Sutton APRN TRAILER TECHNICIAN PCP - General Nurse Practitioner 08/17/14 08/04/21 Shahida Stuton, DUANE TRAILER TECHNICIAN PCP - Assigned PCP 07/12/14 05/07/18 Paula Reza MD [address] [place] [address] PCP - General Internal Medicine 08/05/21 Shahida Sutton, ANALYST MICROBIOLOGY LAB TRAILER TECHNICIAN Assigned PCP 07/12/14 09/30/21 Carolynn Ramon, KASIE Personal Advocate & Liaison (PAL) 12/17/18 08/07/21 [place] [address] [address] [place] [address] Assigned Musculoskeletal Provider 12/26/19 08/21/20 Brady Lion MD Assigned Heart and Vascular Provider 12/26/19 08/14/20 Nima France PA-C [address] [place] [address] Assigned Surgical Provider 05/19/20 08/21/20 Camille Chandler PA-C [address] [place] [address] Assigned Neuroscience Provider 05/19/20 09/14/20 Anabela Barakat APRN TRAILER TECHNICIAN [address] [place] [address] Assigned Heart and Vascular Provider 08/15/20 08/05/21 Nima France PA-C [address] [place] [address] Assigned Musculoskeletal Provider 08/22/20 11/13/20 [place] [address] [facility] [place] [address] Assigned Musculoskeletal Provider 11/14/20 12/04/20 Fawad York MD [address] [place], [place] [address] Assigned Musculoskeletal Provider 12/05/20 02/05/21 Roopa Almonte MD [address] [facility] [facility] 200 [place], [place] [address] Endocrinology, Diabetes, and Metabolism 01/19/21 [place] [address] [facility] [address] [place] [address] Assigned Musculoskeletal Provider 02/06/21 09/16/21 Maryse Burton PA-C [address] [place] [address] Physician Senior Front End Engineer Dermatology 04/14/21 Marquita Starkey MD [address] [facility] 200 [place], [place] [address] Internal Medicine 05/06/21 05/06/21 Roopa Almonte MD [address] [place] [address] Hospitalist Endocrinology, Diabetes, and Metabolism 05/30/21 Griffin Joshi MD [address] [facility] [address] [place] [address] Cardiovascular Disease 07/25/21 Rina Magallon, RN Lead Sales Commissions Analyst 07/29/21 07/11/22 Griffin Joshi MD [address] [place] [address] Assigned Heart and Vascular Provider 08/06/21 10/07/21 Roopa Almonte MD [address] [place] [address] 200 [place] [address] Assigned Endocrinology Provider 09/10/21 [place] [address] [facility] [place] [address] Assigned Musculoskeletal Provider 09/17/21 10/14/21 Lydia Bernstein PA-C [address] [place] [address] Assigned PCP 10/01/21 10/21/21 Rosa Maria Love CHW Community Health Worker 10/06/21 07/11/22 [place] [address] [facility] [address] [place] [address] Assigned Musculoskeletal Provider 10/15/21 04/26/23 Paual Reza MD [address] [facility] [address] [place], [place] [address] Assigned PCP 10/22/21 12/23/21 Keerthi Miner ANALYST MICROBIOLOGY LAB TRAILER TECHNICIAN [address] [place] [id number] Assigned Heart and Vascular Provider 10/08/21 02/10/22 Shahida Sutton APRN TRAILER TECHNICIAN Assigned PCP 12/24/21 03/24/22 Porsha Michaels APRN TRAILER TECHNICIAN [address] [place] [address] Assigned Heart and Vascular Provider 02/11/22 05/12/22 Paula Reza MD [address] [facility] 200 [place] [address] Assigned PCP 03/25/22 04/07/22 Shahida Sutton ANALYST MICROBIOLOGY LAB TRAILER TECHNICIAN [address] [place] [address] Assigned PCP 04/08/22 06/30/22 Daylin Ludwig, MIKI [facility] [address] [place] [address] Cardiac Rehabilitation Therapist 05/16/23 Laurel Velasquez MD [address] [place] [address] Assigned Heart and Vascular Provider 05/13/22 06/30/22 Daylin Ludwig, MIKI [facility] [address] [place] [address] Cardiac Rehabilitation Therapist 06/08/22 06/09/23 Paula Reza MD [address] [place] [address] Assigned PCP 07/01/22 07/07/22 Porsha Michaels APRN TRAILER TECHNICIAN [address] [place] [address] Assigned Heart and Vascular Provider 07/01/22 07/07/22 Laurel Velasquez MD [address] [place] [address] Assigned Heart and Vascular Provider 07/08/22 08/04/22 Shahida Sutton APRN TRAILER TECHNICIAN Assigned PCP 07/08/22 09/08/22 Marilin Montaño TRAILER TECHNICIAN [address] [place] [address] Assigned Heart and Vascular Provider 08/05/22 Esha Dewitt MD [address] [place] [address] Gastroenterology 09/06/22 Heather Mosquera MD [address] [place] [address] Internal Medicine 09/06/22 Paula Reza MD [address] [place] [address] Assigned PCP 09/09/22 01/05/23 Esha Dewitt MD [address] [place] [address] Assigned Gastroenterology Provider 09/23/22 Valdo Escamilla PA-C [address] [facility] [address] [place] [address] Assigned Neuroscience Provider 09/30/22 Nohelia Abarca PA-C [address] [place] [address] Physician Senior Front End Engineer Gastroenterology 10/03/22 Heather Mosquera MD [address]45 [facility] 150 [place] [address] Assigned PCP 01/06/23 Fawad York MD [address] [place] [address] Assigned Musculoskeletal Provider 04/27/23 06/25/23 documented as of this encounter
--- OUTSIDE RECORDS SUMMARY | 2023-12-25 08:17 | XMS_ITS | Encounter Summary ---
Author Organization [facility] Address [address] [place] [address] Care Team Providers Care Sports Medicine Physician Name Role Phone HermanShahida huerta APRN FOOD PREPARER Primary Care Provi ford Unavailable Heramn, Shahida Cummings APRN FOOD PREPARER Unavailable Un available Herman, Shahida Cummings APRN FOOD PREPARER Unavailable Un available Carolynn Ramon RN Unavailable [phone] Augustine Callaway MD Unavailable Brady Lion MD Unavailable Un available Nima France-C Unavailable [phone] Camille Chandler PA-C Unavailable [phone] Anabela Barakat APRN FOOD PREPARER Unavailable Nima France PA-C Unavailable Basilio Morillo DO Unavailable [phone] Fawad York MD Unavailable [phone] Roopa Almonte MD Unavailable [phone] Augustine Callaway MD Unavailable Maryse Burton PA-C Unavailable [phone] Marquita Starkey MD Unavailable Roopa Almonte MD Unavailable [phone] Griffin Joshi MD Unavailable Rina Magallon RN Unavailable [phone] Paula Reza MD Primary Care Provider [phone] Griffin Joshi MD Unavailable Roopa Almonte MD Unavailable [phone] [facility] Basilio Naik Unavailable Lydia Bernstein PA-C Unavailable Rosa Maria Love Unavailable [phone] Augustine Callaway MD Unavailable Paula Reza MD Unavailable Keerthi Miner APRN FOOD PREPARER Unavailable [phone] Herman, Shahida Cummings APRN FOOD PREPARER Unavailable Un available Porsha Michaels APRN FOOD PREPARER Unavailable [phone] Paula Reza MD Unavailable Herman, Shahida Cummings APRN FOOD PREPARER Unavailable Un available Daylin Ludwig Unavailable [phone] Laurel Velasquez MD Unavailable [phone] Daylin Ludwig Unavailable [phone] Paula Reza MD Unavailable Porsha Michaels APRN FOOD PREPARER Unavailable [phone] Laurel Velasquez MD Unavailable [phone] Herman, Shahida Cummings APRN FOOD PREPARER Unavailable Un available Marilin Montaño FOOD PREPARER Unavailable [phone] Esha Dewitt MD Unavailable [phone] Heather Mosquera MD Unavailable [phone] Paula Reza MD Unavailable Esha Dewitt MD Unavailable [phone] Valdo Escamilla PA-C Unavailable Nohelia Abarca PA-C Unavailable [phone] Heather Mosquera MD Unavailable Fawad York MD Unavailable [phone] Reason for Visit * Reason Onset Date Comments Refill Request 02/18/2015 Encounter Details Date Type Department Care Team (Late st Contact Info) Description 02/18/[address] 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 Rule Out COVID-19 01/05/2021 01/05/2021 01/06/2021 12:57 PM CDT ESBL 01/05/2021 01/05/2021 Rule Out COVID-19 06/30/2021 06/30/2021 07/01/2021 9:34 AM CDT Rule Out COVID-19 07/25/2021 07/25/2021 07/25/2021 8:02 PM CDT Assessment Noted Time PHQ-9 Depression Total Score: 5 01/31/20 15 7:38 AM ENGINEERING LABORATORY TECHNICIAN documented as of this encounter Care Teams Sports Medicine Physician Relationship Specialty Start Date End Date Shahida Sutton APRN FOOD PREPARER PCP - General Nurse Practitioner 08/17/14 08/04/21 Shahida Sutton APRN FOOD PREPARER PCP - Assigned PCP 07/12/14 05/07/18 Paula Reza MD [address] [facility] 200 [place] [address] PCP - General Internal Medicine 08/05/21 Shahida Sutton APRN FOOD PREPARER Assigned PCP 07/12/14 09/30/21 Carolynn Ramon RN Personal Advocate & Liaison (PAL) 12/17/18 08/07/21 [place] [address] [address] [place] [address] Assigned Musculoskeletal Provider 12/26/19 08/21/20 Brady Lion MD Assigned Heart and Vascular Provider 12/26/19 08/14/20 Nima France PA-C [address] [place] [address] Assigned Surgical Provider 05/19/20 08/21/20 Camille Chandler PA-C [address] [place] [address] Assigned Neuroscience Provider 05/19/20 09/14/20 StoesAnabela win APRN CNP [address] [place] [address] Assigned Heart and Vascular Provider 08/15/20 08/05/21 Nima France PA-C [address]45 [facility] [address] [place] [address] Assigned Musculoskeletal Provider 08/22/20 11/13/20 [place] [address] [facility] [place] [address] Assigned Musculoskeletal Provider 11/14/20 12/04/20 Fawad York MD [address] [place], [place] [address] Assigned Musculoskeletal Provider 12/05/20 02/05/21 Roopa Almonte MD [address] [facility] 200 [place], [place] [address] Endocrinology, Diabetes, and Metabolism 01/19/21 [place] [address] [facility] [address] [place] [address] Assigned Musculoskeletal Provider 02/06/21 09/16/21 Maryse Burton PA-C [address] [place] [address] Physician Director Telecommunications Dermatology 04/14/21 Marquita Starkey MD [address] [facility] [address] [place], [place] [address] Internal Medicine 05/06/21 05/06/21 Roopa Almonte MD [address] [facility] 200 [place] [address] Hospitalist Endocrinology, Diabetes, and Metabolism 05/30/21 Griffin Joshi MD [address] [place] [address] Cardiovascular Disease 07/25/21 Rina Magallon, RN Lead Delivery Department Supervisor 07/29/21 07/11/22 Griffin Joshi MD [address] [facility] [address] [place] [address] Assigned Heart and Vascular Provider 08/06/21 10/07/21 Ropoa Almonte MD [address] [facility] [address] [place] [address] Assigned Endocrinology Provider 09/10/21 [place] [address] [place] [address] Assigned Musculoskeletal Provider 09/17/21 10/14/21 Lydia Bernstein PA-C [address] [place] [address] Assigned PCP 10/01/21 10/21/21 Rosa Maria Love CHW Community Health Worker 10/06/21 07/11/22 [place] [address] [address] [facility] [address] [place] [address] Assigned Musculoskeletal Provider 10/15/21 04/26/23 Paula Reza MD [address] [place] [address] Assigned PCP 10/22/21 12/23/21 Keerthi Miner APRN FOOD PREPARER [address] [place] [address] Assigned Heart and Vascular Provider 10/08/21 02/10/22 Shahida Sutton APRN FOOD PREPARER Assigned PCP 12/24/21 03/24/22 Porsha Michaels APRN FOOD PREPARER [address] [place] [address] Assigned Heart and Vascular Provider 02/11/22 05/12/22 Paula Reza MD [address] [place] [address] Assigned PCP 03/25/22 04/07/22 Shahida Sutton APRN FOOD PREPARER [address] [place] [address] Assigned PCP 04/08/22 06/30/22 Daylin Ludwig, MIKI [facility] [address] [place] [address] Cardiac Rehabilitation Therapist 05/16/23 Laurel Velasquez MD [address] [place] [address] Assigned Heart and Vascular Provider 05/13/22 06/30/22 Daylin Ludwig EP [facility] [address] [place], [place] [address] Cardiac Rehabilitation Therapist 06/08/22 06/09/23 Paula Reza MD [address] [place] [address] Assigned PCP 07/01/22 07/07/22 Porsha Michaels APRN FOOD PREPARER [address] [place] [address] Assigned Heart and Vascular Provider 07/01/22 07/07/22 Laurel Velasquez MD [address] [place] [address] Assigned Heart and Vascular Provider 07/08/22 08/04/22 Shahida Sutton APRN FOOD PREPARER Assigned PCP 07/08/22 09/08/22 Marilin Montaño, FOOD PREPARER [address] [place] [address] Assigned Heart and Vascular Provider 08/05/22 Esha Dewitt MD [address] [place] [address] 36 [place], [place] [address] Gastroenterology 09/06/22 Heather Mosquera MD [address] [place] [address] Internal Medicine 09/06/22 Paula Reza MD [address] [place] [address] Assigned PCP 09/09/22 01/05/23 Esha Dewitt MD [address] [facility] 36 [place] [address] Assigned Gastroenterology Provider 09/23/22 Valdo Escamilla PA-C [address] [facility] [address] [place] [address] Assigned Neuroscience Provider 09/30/22 Nohelia Abarca PA-C [address] [place] [address] Physician Director Telecommunications Gastroenterology 10/03/22 Heather Mosquera MD [address] [facility] [address] [place] [address] Assigned PCP 01/06/23 Fawad York MD [address] [place] [address] Assigned Musculoskeletal Provider 04/27/23 06/25/23 documented as of this encounter
--- OUTSIDE RECORDS SUMMARY | 2023-12-25 08:17 | XMS_ITS | Encounter Summary ---
Author Organization [facility] [address] [place] [address] Care Team Providers Care House Coordinator Name Role Phone HermanShahida huerta APRN DETECTIVE PRIVATE EYE Primary Care Provi ford Unavailable Herman, Shahida Cummings APRN DETECTIVE PRIVATE EYE Unavailable Un available Herman, Shahida Cummings APRN DETECTIVE PRIVATE EYE Unavailable Un available Carolynn Ramon RN Unavailable [phone] Augustine Callaway MD Unavailable Brady Lion MD Unavailable Un available Nima France-C Unavailable [phone] Camille Chandler PA-C Unavailable [phone] Anabela Barakat APRN DETECTIVE PRIVATE EYE Unavailable Nima France PA-C Unavailable Basilio Morillo DO Unavailable Fawad York MD Unavailable [phone] Roopa Almonte MD Unavailable [phone] Augustine Callaway MD Unavailable Maryse Burton PA-C Unavailable Marquita Starkey MD Unavailable [phone] Roopa Almonte MD Unavailable [phone] Griffin Joshi MD Unavailable Rina Magallon RN Unavailable [phone] Palua Reza MD Primary Care Provider [phone] Griffin Joshi MD Unavailable Roopa Almonte MD Unavailable [phone] [facility] Naik Unavailable Lydia Bernstein PA-C Unavailable Rosa Maria Love Unavailable [phone] Augustine Callaway MD Unavailable Paula Reza MD Unavailable Keerthi Miner APRN DETECTIVE PRIVATE EYE Unavailable [phone] Herman, Shahida Cummings APRN DETECTIVE PRIVATE EYE Unavailable Un available Porsha Michaels APRN DETECTIVE PRIVATE EYE Unavailable [phone] Paula Reza MD Unavailable Herman, Shahida Cummings APRN DETECTIVE PRIVATE EYE Unavailable Un available Daylin Ludwig Unavailable [phone] Laurel Velasquez MD Unavailable [phone] Daylin Ludwig Unavailable [phone] Paula Reza MD Unavailable Porsha Michaels APRN DETECTIVE PRIVATE EYE Unavailable [phone] Laurel Velasquez MD Unavailable [phone] Herman, Shahida Cummings APRN DETECTIVE PRIVATE EYE Unavailable Un available Marilin Montaño DETECTIVE PRIVATE EYE Unavailable [phone] Esha Dewitt MD Unavailable [phone] Heather Mosquera MD Unavailable [phone] Paula Reza MD Unavailable Esha Dewitt MD Unavailable [phone] Valdo Escamilla PA-C Unavailable [phone] Nohelia Abarca PA-C Unavailable [phone] Heather Mosquera MD Unavailable Fawad York MD Unavailable [phone] Reason for Visit * Reason Onset Date Comments Refill Request 03/26/2017 Encounter Details Date Type Department Care Team (Late st Contact Info) Description 03/26/2017 MyC Refill [address] [address] Shahida Sutton APRN DETECTIVE PRIVATE EYE Refill Request Social History Tobacco Use Types [...] for review/approval because: Drug not on the [facility] refill protocol Judith Green RN, BS Clinical Nurse Triage. TY SALES ASSISTANT * Telephone Encounter - Judith Green RN - 03/28/2017 8:16 AM CST Disp Refills Start End TRISTON cyclobenzaprine (FLEXERIL) 10 MG tablet 60 tablet 0 01/15/2017 No Sig: TAKE 1 TABLET(10 MG) BY MOUTH THREE TIMES DAILY NEEDED FOR MUSCLE SPASMS Last OV: 03.02.17 TY SALES ASSISTANT * Telephone Encounter - Judith Green RN - 03/28/2017 8:15 AM CSTMessage [facility] Original authorizing provider: DUANE Payton CNP would like a refill of the following medications: cyclobenzaprine (FLEXERIL) 10 MG tablet [Shahida Sutton APRN CNP] Preferred pharmacy: [facility] [address] [place] [address] AT [facility] [address] Comment: TY SALES ASSISTANT documented in this encounter Plan of Treatment Not on file documented as of this encounter Visit Diagnoses Diagnosis Cervicalgia Radicular pain in right arm Neuralgia, neuritis, and radiculitis, unspecified documented in this encounter Additional Health Concerns Infection Onset Date Last Indicated Resolved Time Rule Out COVID-19 02/15/2020 02/15/2020 02/16/2020 2:32 PM EQUITY SALES ASSISTANT Rule Out COVID-19 01/05/2021 01/05/2021 01/06/2021 12:57 PM CDT ESBL 01/05/2021 01/05/2021 Rule Out COVID-19 06/30/2021 06/30/2021 07/01/2021 9:34 AM CDT Rule Out COVID-19 07/25/2021 07/25/2021 07/25/2021 8:02 PM CDT Assessment Noted Time PHQ-9 Depression Total Score: 6 02/03/20 17 10:57 AM EQUITY SALES ASSISTANT documented as of this encounter Care Teams House Coordinator Relationship Specialty Start Date End Date Shahida Sutton APRN CNP PCP - General Nurse Practitioner 08/17/14 08/04/21 Shahida Sutton APRN CNP PCP - Assigned PCP 07/12/14 05/07/18 Paula Reza MD [address] [place] [address] PCP - General Internal Medicine 08/05/21 Shahida Sutton APRN DETECTIVE PRIVATE EYE Assigned PCP 07/12/14 09/30/21 Carolynn Ramon, KASIE Personal Advocate & Liaison (PAL) 12/17/18 08/07/21 [place] [address] [place] [address] Assigned Musculoskeletal Provider 12/26/19 08/21/20 Brady Lion MD Assigned Heart and Vascular Provider 12/26/19 08/14/20 Nima France PA-C [address] [place] [address] Assigned Surgical Provider 05/19/20 08/21/20 Camille Chandler PA-C [address] [place] [address] Assigned Neuroscience Provider 05/19/20 09/14/20 Anabela Barakat APRN DETECTIVE PRIVATE EYE [address] [place] [address] Assigned Heart and Vascular Provider 08/15/20 08/05/21 Nima France PA-C [address] [place] [address] Assigned Musculoskeletal Provider 08/22/20 11/13/20 Ilia Basilio Naik [address] [facility] [place] [address] Assigned Musculoskeletal Provider 11/14/20 12/04/20 Fawad York MD [address] [place], [place] [address] Assigned Musculoskeletal Provider 12/05/20 02/05/21 Roopa Almonte MD [address] [facility] [address] [place] [address] Endocrinology, Diabetes, and Metabolism 01/19/21 [place] [address] [facility] [address] [place] [address] Assigned Musculoskeletal Provider 02/06/21 09/16/21 Maryse Burton PA-C [address] [place] [address] Physician Diesel Engine Erector Dermatology 04/14/21 Marquita Starkey MD [address] [facility] 200 [place] [address] Internal Medicine 05/06/21 05/06/21 Roopa Almonte MD [address] [facility] [facility] [address] [place] [address] Hospitalist Endocrinology, Diabetes, and Metabolism 05/30/21 Griffin Joshi MD [address] [facility] [address] [place] [address] Cardiovascular Disease 07/25/21 Rina Magallon, RN Lead Computer Equipment Repairer 07/29/21 07/11/22 Griffin Joshi MD [address] [place] [address] Assigned Heart and Vascular Provider 08/06/21 10/07/21 Roopa Almonte MD [address] [facility] [address] [place], [place] [address] Assigned Endocrinology Provider 09/10/21 [place] [address] [facility] [place] [address] Assigned Musculoskeletal Provider 09/17/21 10/14/21 Lydia Bernstein PA-C [address] [place] [address] Assigned PCP 10/01/21 10/21/21 Rosa Maria Love CHW Community Health Worker 10/06/21 07/11/22 [place] [address] [facility] [address] [place] [address] Assigned Musculoskeletal Provider 10/15/21 04/26/23 Paula Reza MD [address] [facility] [address] [place], [place] [address] Assigned PCP 10/22/21 12/23/21 Keerthi Miner APRN DETECTIVE PRIVATE EYE [address] [place] [address] Assigned Heart and Vascular Provider 10/08/21 02/10/22 Shahida Sutton APRN DETECTIVE PRIVATE EYE Assigned PCP 12/24/21 03/24/22 Porsha Michaels APRN DETECTIVE PRIVATE EYE [address] [place] [address] Assigned Heart and Vascular Provider 02/11/22 05/12/22 Paula Reza MD [address] [place] [address] Assigned PCP 03/25/22 04/07/22 Shahida Sutton APRN DETECTIVE PRIVATE EYE [address] [place] [address] Assigned PCP 04/08/22 06/30/22 Daylin Ludwig, EP [facility] [address] [place] [address] Cardiac Rehabilitation Therapist 05/16/23 Laurel Velasquez MD [address] [place] [address] Assigned Heart and Vascular Provider 05/13/22 06/30/22 Daylin Ludwig, EP [facility] [address] [place] [address] Cardiac Rehabilitation Therapist 06/08/22 06/09/23 Paula Reza MD [address] [place] [address] Assigned PCP 07/01/22 07/07/22 Porsha Michaels APRN DETECTIVE PRIVATE EYE [address] [place] [address] Assigned Heart and Vascular Provider 07/01/22 07/07/22 Laurel Velasquez MD [address] [place] [address] Assigned Heart and Vascular Provider 07/08/22 08/04/22 Shahida Sutton, DUANE DETECTIVE PRIVATE EYE Assigned PCP 07/08/22 09/08/22 Marilin Montaño, DETECTIVE PRIVATE EYE [address] [place] [address] Assigned Heart and Vascular Provider 08/05/22 Esha Dewitt MD [address] [address] MD Gastroenterology 09/06/22 Heather Mosquera MD [address] [place] [address] Internal Medicine 09/06/22 Paula Reza MD [address] [facility] [address] [place], [place] [address] Assigned PCP 09/09/22 01/05/23 Esha Dewitt MD [address] [address] Assigned Gastroenterology Provider 09/23/22 Valdo Escamilla PA-C [address] [place] [address] Assigned Neuroscience Provider 09/30/22 Nohelia Abarca PA-C [address] [place] [address] Physician Diesel Engine Erector Gastroenterology 10/03/22 Heather Mosquera MD [address] [facility] [place] 150 [place] [address] Assigned PCP 01/06/23 Fawad York MD [address] [place], [place] [address] Assigned Musculoskeletal Provider 04/27/23 06/25/23 documented as of this encounter
--- OUTSIDE RECORDS SUMMARY | 2023-12-25 08:17 | XMS_ITS | Encounter Summary ---
Author Organization [facility] [address] [place] [address] Care Team Providers Care Operator And Truck Driver Name Role Phone HermanShahida huerta APRN STAMP PAD FINISHER Primary Care Provi ford Unavailable Herman, Shahida Cummings APRN STAMP PAD FINISHER Unavailable Un available Herman, Shahida Cummings APRN STAMP PAD FINISHER Unavailable Un available Carolynn Ramon RN Unavailable [phone] Augustine Callaway MD Unavailable Brady Lion MD Unavailable Un available Nima France-C Unavailable [phone] Camille Chandler PA-C Unavailable [phone] Anabela Barakat APRN STAMP PAD FINISHER Unavailable Nima France PA-C Unavailable Basilio Morillo DO Unavailable [phone] Fawad York MD Unavailable [phone] Roopa Almonte MD Unavailable [phone] Augustine Callaway MD Unavailable Maryse Burton PA-C Unavailable [phone] Marquita Starkey MD Unavailable [phone] Roopa Almonte MD Unavailable [phone] Griffin Joshi MD Unavailable Rina Magallon RN Unavailable [phone] Paula Reza MD Primary Care Provider [phone] Griffin Joshi MD Unavailable Roopa Almonte MD Unavailable [phone] [facility] Bas[facility] Naik Unavailable Lydia Bernstein PA-C Unavailable Rosa Maria Love Unavailable [phone] Augustine Callaway MD Unavailable Paula Reza MD Unavailable Keerthi Miner APRN STAMP PAD FINISHER Unavailable [phone] Herman, Shahida Cummings APRN STAMP PAD FINISHER Unavailable Un available Porsha Michaels APRN STAMP PAD FINISHER Unavailable [phone] Paula Reza MD Unavailable Herman, Shahida Cummings APRN STAMP PAD FINISHER Unavailable Un available Daylin Ludwig Unavailable [phone] Laurel Velasquez MD Unavailable [phone] Daylin Ludwig Unavailable [phone] Paula Reza MD Unavailable Porsha Michaels APRN STAMP PAD FINISHER Unavailable [phone] Laurel Velasquez MD Unavailable [phone] Herman, Shahida Cummings APRN STAMP PAD FINISHER Unavailable Un available Marilin Montaño STAMP PAD FINISHER Unavailable [phone] Esha Dewitt MD Unavailable [phone] Heather Mosquera MD Unavailable [phone] Paula Reza MD Unavailable Esha Dewitt MD Unavailable [phone] Valdo Escamilla PA-C Unavailable [phone] Nohelia Abarca PA-C Unavailable [phone] Heather Mosquera MD Unavailable Fawad York MD Unavailable [phone] Encounter Details Date Type Department Care Team (Late st Contact Info) Description 10/30/2014 [facility] [place] [id number] [place] [address] [phone] Maximiliano Herrmann Social History Tobacco Use Types [...] Out COVID-19 02/15/2020 02/15/2020 02/16/2020 2:32 PM TOWEL WEAVER Rule Out COVID-19 01/05/2021 01/05/2021 01/06/2021 12:57 PM CDT ESBL 01/05/2021 01/05/2021 Rule Out COVID-19 06/30/2021 06/30/2021 07/01/2021 9:34 AM CDT Rule Out COVID-19 07/25/2021 07/25/2021 07/25/2021 8:02 PM CDT documented as of this encounter Care Teams Operator And Truck Driver Relationship Specialty Start Date End Date Shahida Sutton APRN STAMP PAD FINISHER PCP - General Nurse Practitioner 08/17/14 08/04/21 Shahida Sutton APRN STAMP PAD FINISHER PCP - Assigned PCP 07/12/14 05/07/18 Paula Reza MD [address] [place] [address] PCP - General Internal Medicine 08/05/21 Shahida Sutton APRN STAMP PAD FINISHER Assigned PCP 07/12/14 09/30/21 Carolynn Ramon, KASIE Personal Advocate & Liaison (PAL) 12/17/18 08/07/21 [place] [address] [place] [address] Assigned Musculoskeletal Provider 12/26/19 08/21/20 Brady Lion MD Assigned Heart and Vascular Provider 12/26/19 08/14/20 Nima France PA-C [address] [facility] [address] [place] [address] Assigned Surgical Provider 05/19/20 08/21/20 Camille Chandler PA-C [address] [facility] [address] [place] [address] Assigned Neuroscience Provider 05/19/20 09/14/20 Anabela Barakat APRN STAMP PAD FINISHER [address] [place] [address] Assigned Heart and Vascular Provider 08/15/20 08/05/21 Nima France PA-C [address] [place] [address] Assigned Musculoskeletal Provider 08/22/20 11/13/20 [place] [address] [facility] [place] [address] Assigned Musculoskeletal Provider 11/14/20 12/04/20 Fawad York MD [address] [place], [place] [address] Assigned Musculoskeletal Provider 12/05/20 02/05/21 Roopa Almonte MD [address] [facility] [address] [place] [address] Endocrinology, Diabetes, and Metabolism 01/19/21 [place] [address] [facility] 300 [place] [address] Assigned Musculoskeletal Provider 02/06/21 09/16/21 Maryse Burton PA-C [address] [place] [address] Physician Sheetmetal Worker Dermatology 04/14/21 Marquita Starkey MD [address] [place] [address] Internal Medicine 05/06/21 05/06/21 Roopa Almonte MD [address] [place] [address] Hospitalist Endocrinology, Diabetes, and Metabolism 05/30/21 Griffin Joshi MD [address] [facility] [address] [facility] [address] [place] [address] Cardiovascular Disease 07/25/21 Rina Magallon, RN Lead Museum Preparator 07/29/21 07/11/22 Griffin Joshi MD [address] [facility] [address] [place] [address] Assigned Heart and Vascular Provider 08/06/21 10/07/21 Roopa Almonte MD [address] [address] [place], [place] [address] Assigned Endocrinology Provider 09/10/21 [place] [address] [facility] [place] [address] Assigned Musculoskeletal Provider 09/17/21 10/14/21 Lydia Bernstein PA-C [address] [facility] [address] [place] [address] Assigned PCP 10/01/21 10/21/21 Rosa Maria Love CHW Community Health Worker 10/06/21 07/11/22 [place] [address] [place] [facility] 300 [place] [address] Assigned Musculoskeletal Provider 10/15/21 04/26/23 Paula Reza MD [address] [facility] 200 [place] [address] Assigned PCP 10/22/21 12/23/21 Keerthi Miner [employer] STAMP PAD FINISHER [address] [place] [address] Assigned Heart and Vascular Provider 10/08/21 02/10/22 Shahida Sutton APRN STAMP PAD FINISHER Assigned PCP 12/24/21 03/24/22 Porsha Michaels APRN STAMP PAD FINISHER [address] [place] [address] Assigned Heart and Vascular Provider 02/11/22 05/12/22 Paula Reza MD [address] [facility] 200 [place] [address] Assigned PCP 03/25/22 04/07/22 Shahida Sutton APRN STAMP PAD FINISHER [address] [place] [address] Assigned PCP 04/08/22 06/30/22 Daylin Ludwig EP [facility] [address] [place] [address] Cardiac Rehabilitation Therapist 05/16/23 Laurel Velasquez MD [address] [place] [address] Assigned Heart and Vascular Provider 05/13/22 06/30/22 Daylin Ludwig EP [facility] [address] [place] [address] Cardiac Rehabilitation Therapist 06/08/22 06/09/23 Paula Reza MD [address] [place] [address] Assigned PCP 07/01/22 07/07/22 Porsha Michaels APRN STAMP PAD FINISHER [address] [place] [address] Assigned Heart and Vascular Provider 07/01/22 07/07/22 Laurel Velasquez MD [address] [place] [address] Assigned Heart and Vascular Provider 07/08/22 08/04/22 Shahida Sutton APRN STAMP PAD FINISHER Assigned PCP 07/08/22 09/08/22 Marilin Montaño STAMP PAD FINISHER [address] [place] [address] Assigned Heart and Vascular Provider 08/05/22 Esha Dewitt MD [address] [place] [address] Gastroenterology 09/06/22 Heather Mosquera MD [address] [place] [address] Internal Medicine 09/06/22 Paula Reza MD [address] [place], [place] [address] Assigned PCP 09/09/22 01/05/23 Esha Dewitt MD [address] [place] [address]30[address] Assigned Gastroenterology Provider 09/23/22 Valdo Escamilla PA-C [address] [facility] [address] [place], [place] [address] Assigned Neuroscience Provider 09/30/22 Nohelia Abarca PA-C [address] [place], [place] [address] Physician Sheetmetal Worker Gastroenterology 10/03/22 Heather Mosquera MD [address] [facility] [address] [place], [place] [address] Assigned PCP 01/06/23 Fawad York MD [address] [place], [place] [address] Assigned Musculoskeletal Provider 04/27/23 06/25/23 documented as of this encounter
--- OUTSIDE RECORDS SUMMARY | 2023-12-25 08:17 | XMS_ITS | Encounter Summary ---
Author Organization [facility] Address [address] [place] [address] Care Team Providers Care Mosaic Tiler Name Role Phone Shahida Sutton APRN DIAL LATHE OPERATOR Primary Care Provi ford Unavailable Shahida Sutton APRN DIAL LATHE OPERATOR Unavailable Un available Carolynn Ramon RN Unavailable [phone] Augustine Callaway MD Unavailable Brady Lion MD Unavailable Un available Nima France-C Unavailable Camille Chandler PA-C Unavailable [phone] Anabela Barakat APRN DIAL LATHE OPERATOR Unavailable Nima France PA-C Unavailable Basilio Morillo DO Unavailable Fawad York MD Unavailable Roopa Almonte MD Unavailable [phone] Augustine Callaway MD Unavailable Maryse Burton PA-C Unavailable [phone] Marquita Starkey MD Unavailable [phone] Roopa Almonte MD Unavailable Griffin Joshi MD Unavailable Rina Magallon RN Unavailable [phone] Paula Reza MD Primary Care Provider [phone] Griffin Joshi MD Unavailable Roopa Almonte MD Unavailable [phone] Basilio Morillo DO Unavailable Lydia Bernstein-C Unavailable Rosa Maria Love Unavailable [phone] Augustine Callaway MD Unavailable Paula Reza MD Unavailable Keerthi Miner APRN DIAL LATHE OPERATOR Unavailable [phone] Herman, Shahida Cummings APRN DIAL LATHE OPERATOR Unavailable Un available Porsha Michaels APRN DIAL LATHE OPERATOR Unavailable [phone] Paula Reza MD Unavailable Shahida Sutton APRN DIAL LATHE OPERATOR Unavailable Un available Daylin Ludwig Unavailable [phone] Laurel Velasquez MD Unavailable [phone] Daylin Ludwig Unavailable [phone] Paula Reza MD Unavailable Porsha Michaels APRN DIAL LATHE OPERATOR Unavailable [phone] Laurel Velasquez MD Unavailable [phone] Shahida Sutton FOOTBALL SCOUT DIAL LATHE OPERATOR Unavailable Un available Marilin Montaño DIAL LATHE OPERATOR Unavailable [phone] Esha Dewitt MD Unavailable EvelineHeather MD Unavailable [phone] Paula Reza MD Unavailable Esha Dewitt MD Unavailable [phone] Andi Valdo Desouza PA-C Unavailable [phone] Nohelia Abarca PA-C Unavailable [phone] Heather Mosquera MD Unavailable Fawad York MD Unavailable [phone] Reason for Visit * Reason Comments Medication Refill BASAGLAR 100 U/ML KW IKPEN INJ 3ML Encounter Details Date Type Department Care Team (Late st Contact Info) Description 06/27/[address] [address] Shahida Sutton APRN CNP Medication [...] range: See below. Marilin Cuevas RN -- [facility] * Telephone Encounter - Neha Garcia - [...] 02/15/2020 02/15/2020 02/16/2020 2:32 PM DIRECTOR OF INTELLIGENCE Rule Out COVID-19 01/05/2021 01/05/2021 01/06/2021 12:57 PM CDT ESBL 01/05/2021 01/05/2021 Rule Out COVID-19 06/30/2021 06/30/2021 07/01/2021 9:34 AM CDT Rule Out COVID-19 07/25/2021 07/25/2021 07/25/2021 8:02 PM CDT Assessment Noted Time PHQ-9 Depression Total Score: 6 12/21/19 18 7:06 AM CDT documented as of this encounter Care Teams Mosaic Tiler Relationship Specialty Start Date End Date Shahida Sutton APRN DIAL LATHE OPERATOR PCP - General Nurse Practitioner 08/17/14 08/04/21 Paula Reza MD [address] [facility] [address] [place] [address] PCP - General Internal Medicine 08/05/21 Shahida Sutton APRN DIAL LATHE OPERATOR Assigned PCP 07/12/14 09/30/21 Carolynn Ramon, KASIE Personal Advocate & Liaison (PAL) 12/17/18 08/07/21 [place] [address] [place] [address] Assigned Musculoskeletal Provider 12/26/19 08/21/20 Brady Lion MD Assigned Heart and Vascular Provider 12/26/19 08/14/20 Nima France PA-C [address] [place] [address] Assigned Surgical Provider 05/19/20 08/21/20 Camille Chandler PA-C [address] [facility] [address] [place], [place] [address] Assigned Neuroscience Provider 05/19/20 09/14/20 Anabela Barakat APRN DIAL LATHE OPERATOR [address]00 [place] [address] Assigned Heart and Vascular Provider 08/15/20 08/05/21 Nima France PA-C [address] [facility] 450 [place] [address] Assigned Musculoskeletal Provider 08/22/20 11/13/20 [place] [address] [place] [address] Assigned Musculoskeletal Provider 11/14/20 12/04/20 Fawad York MD [address] [place], [place] [address] Assigned Musculoskeletal Provider 12/05/20 02/05/21 Roopa Almonte MD [address] [facility] [address] [place] [address] Endocrinology, Diabetes, and Metabolism 01/19/21 [place] [address] [facility] [address] [place] [address] Assigned Musculoskeletal Provider 02/06/21 09/16/21 Maryse Burton PA-C [address] [place] [address] Physician Software Firmware Engineer Dermatology 04/14/21 Marquita Starkey MD [address] [facility] [address] [place] [address] Internal Medicine 05/06/21 05/06/21 Roopa Almonte MD [address] [facility] [address] [place] [address] Hospitalist Endocrinology, Diabetes, and Metabolism 05/30/21 Griffin Joshi MD [address] [place] [address] Cardiovascular Disease 07/25/21 Rina Magallon RN Lead Drapery Hanger 07/29/21 07/11/22 Griffin Joshi MD [address] [place] [address] Assigned Heart and Vascular Provider 08/06/21 10/07/21 Roopa Almonte MD [address] [facility] 200 [place], [place] [address] Assigned Endocrinology Provider 09/10/21 [place] [address] [facility] [place] [address] Assigned Musculoskeletal Provider 09/17/21 10/14/21 Lydia Bernstein PA-C [address] [place] [address] Assigned PCP 10/01/21 10/21/21 Klarissa Lovesay, W Community Health Worker 10/06/21 07/11/22 [place] [address] [place] [address] Assigned Musculoskeletal Provider 10/15/21 04/26/23 Paula Reza MD [address] [place] [address] Assigned PCP 10/22/21 12/23/21 Keerthi Miner APRN DIAL LATHE OPERATOR [address] [place] [address] Assigned Heart and Vascular Provider 10/08/21 02/10/22 Shahida Sutton APRN DIAL LATHE OPERATOR Assigned PCP 12/24/21 03/24/22 Porsha Michaels APRN DIAL LATHE OPERATOR [address] [place] [address] Assigned Heart and Vascular Provider 02/11/22 05/12/22 Paula Reza MD [address] [place] [address] Assigned PCP 03/25/22 04/07/22 Shahida Sutton APRN DIAL LATHE OPERATOR [address] [place] [address] Assigned PCP 04/08/22 06/30/22 Daylin Ludwig EP [facility] [address] [place] [address] Cardiac Rehabilitation Therapist 05/16/23 Laurel Velasquez MD [address] [place] [address] Assigned Heart and Vascular Provider 05/13/22 06/30/22 Daylin Ludwig EP [facility] [address] [place] [address] Cardiac Rehabilitation Therapist 06/08/22 06/09/23 Paula Reza MD [address] [facility] [address] [place], [place] [address] Assigned PCP 07/01/22 07/07/22 Porsha Michaels APRN DIAL LATHE OPERATOR [address] [place] [address] Assigned Heart and Vascular Provider 07/01/22 07/07/22 Laurel Velasquez MD [address] [place] [place] [address] Assigned Heart and Vascular Provider 07/08/22 08/04/22 Shahida Sutton, FOOTBALL SCOUT DIAL LATHE OPERATOR Assigned PCP 07/08/22 09/08/22 Marilin Montaño, DIAL LATHE OPERATOR [address] [place] [address] Assigned Heart and Vascular Provider 08/05/22 Esha Dewitt MD [address] [place] [address] 36 [place], [place] [address] Gastroenterology 09/06/22 Heather Mosquera MD [address] [place] [address] Internal Medicine 09/06/22 Paula Reza MD [address] [place] [address] Assigned PCP 09/09/22 01/05/23 Esha Dewitt MD 420 [facility] 36 [place], [place] [address] Assigned Gastroenterology Provider 09/23/22 Valdo Escamilla PA-C [address] [facility] [address] [place], [place] [address] Assigned Neuroscience Provider 09/30/22 Nohelia Abarca PA-C [address] [place], [place] [address] Physician Software Firmware Engineer Gastroenterology 10/03/22 Heather Mosquera MD [address] [place] [address] Assigned PCP 01/06/23 Fawad York MD [address] [place], [place] [address] Assigned Musculoskeletal Provider 04/27/23 06/25/23 documented as of this encounter
--- OUTSIDE RECORDS SUMMARY | 2023-12-25 08:17 | XMS_ITS | Encounter Summary ---
Author Organization [facility] Address [address] [place] [address] Care Team Providers Care Upper Cutter Out Name Role Phone HermanShahida huerta APRN RETAIL LOAN ORIGINATOR ASSISTANT Primary Care Provi ford Unavailable Herman, Shahida Cummings APRN RETAIL LOAN ORIGINATOR ASSISTANT Unavailable Un available Herman, Shahida Cummings APRN RETAIL LOAN ORIGINATOR ASSISTANT Unavailable Un available Carolynn Ramon RN Unavailable [phone] Augustine Callaway MD Unavailable Brady Lion MD Unavailable Un available Nima France-C Unavailable [phone] Camille Chandler PA-C Unavailable [phone] Anabela Barakat APRN RETAIL LOAN ORIGINATOR ASSISTANT Unavailable Nima France PA-C Unavailable Basilio Morillo DO Unavailable Fawad York MD Unavailable [phone] Roopa Almonte MD Unavailable [phone] Augustine Callaway MD Unavailable Maryse Burton PA-C Unavailable Marquita Starkey MD Unavailable Roopa Almonte MD Unavailable [phone] Griffin Joshi MD Unavailable Rina Magallon RN Unavailable [phone] Paula Reza MD Primary Care Provider [phone] Griffin Joshi MD Unavailable Roopa Almonte MD Unavailable [phone] [facility] Basilio Naik Unavailable Lydia Bernstein PA-C Unavailable Rosa Maria Love Unavailable [phone] Augustine Callaway MD Unavailable Paula Reza MD Unavailable Keerthi Miner APRN RETAIL LOAN ORIGINATOR ASSISTANT Unavailable [phone] Herman, Shahida Cummings APRN RETAIL LOAN ORIGINATOR ASSISTANT Unavailable Un available Porsha Michaels APRN RETAIL LOAN ORIGINATOR ASSISTANT Unavailable [phone] Paula Reza MD Unavailable Herman, Shahida Cummings APRN RETAIL LOAN ORIGINATOR ASSISTANT Unavailable Un available Daylin Ludwig Unavailable [phone] Laurel Velasquez MD Unavailable [phone] Daylin Ludwig Unavailable [phone] Paula Reza MD Unavailable Porsha Michaels APRN RETAIL LOAN ORIGINATOR ASSISTANT Unavailable [phone] Laurel Velasquez MD Unavailable [phone] Herman, Shahida Cummings APRN RETAIL LOAN ORIGINATOR ASSISTANT Unavailable Un available Marilin Montaño RETAIL LOAN ORIGINATOR ASSISTANT Unavailable [phone] Esha Dewitt MD Unavailable [phone] Heather Mosquera MD Unavailable [phone] Paula Reza MD Unavailable Esha Dewitt MD Unavailable [phone] Valdo Escamilla PA-C Unavailable [phone] Nohelia Abarca PA-C Unavailable [phone] Heather Mosquera MD Unavailable Fawad York MD Unavailable [phone] Reason for Visit * Reason Comments Medication Refill GABAPENTIN 300MG MIGUEL CORBIN Encounter Details Date Type Department Care Team (Late st Contact Info) Description 08/21/[address] [address] Shahida Sutton APRN CNP Medication [...] further evaluation. RX monitoring program ([place]) reviewed: HAY CHOPPER reviewed- no concerns Last Fills: Gabapentin- 07/11/2016, #270; 05/25/2016, #270 [place]- 08/10/2016, #30; 07/11/2016, #120 Adderall- 07/29/2016, #60 06/30/2016, #60 Ambien- 07/28/2016,#30 06/29/2016, #30 [place] profile: [email or web address] Shanon Holliday RN, BSN, PHN [facility] RN * Telephone Encounter - Pranav Maysen - 08/21/2016 1:28 PM CDT GABAPENTIN 300MG CAPSULES Last Written Prescription Date: 05-25-2016 Last Fill Quantity: 07-11-2016, #270 refills: 1 Last Office Visit with [facility], P or [facility] prescribing provider: 06-12-2016 Shahida Sutton. Next 5 appointments (look out 90 days) Sep 19, 2016 8:00 AM CDT Return Visit with Jing Roper APRN [facility] ([facility] [address] [place] [phone] Sep 20, 2016 10:00 AM CDT Nurse Only with HEALTH COMPO CONVEYOR OPERATOR - REGION 5 [facility] [address] [place] [phone] documented in this encounter Plan of Treatment Not on file documented as of this encounter Visit Diagnoses Diagnosis Other chronic pain documented in this encounter Additional Health Concerns Infection Onset Date Last Indicated Resolved Time Rule Out COVID-19 02/15/2020 02/15/2020 02/16/2020 2:32 PM PHARMACOLOGIST Rule Out COVID-19 01/05/2021 01/05/2021 01/06/2021 12:57 PM CDT ESBL 01/05/2021 01/05/2021 Rule Out COVID-19 06/30/2021 06/30/2021 07/01/2021 9:34 AM CDT Rule Out COVID-19 07/25/2021 07/25/2021 07/25/2021 8:02 PM CDT Assessment Noted Time PHQ-9 Depression Total Score: 5 05/27/19 17 7:07 AM CDT documented as of this encounter Care Teams Upper Cutter Out Relationship Specialty Start Date End Date Shahida Sutton APRN RETAIL LOAN ORIGINATOR ASSISTANT PCP - General Nurse Practitioner 08/17/14 08/04/21 Shahida Sutton APRN RETAIL LOAN ORIGINATOR ASSISTANT PCP - Assigned PCP 07/12/14 05/07/18 Paula Reza MD [address] [facility] 200 [place] [address] PCP - General Internal Medicine 08/05/21 Shahida Sutton APRN RETAIL LOAN ORIGINATOR ASSISTANT Assigned PCP 07/12/14 09/30/21 Carolynn Ramon RN Personal Advocate & Liaison (PAL) 12/17/18 08/07/21 [place] [address] [place] [address] Assigned Musculoskeletal Provider 12/26/19 08/21/20 Brady Lion MD Assigned Heart and Vascular Provider 12/26/19 08/14/20 Nima France PA-C [address] [facility] [address] [place] [address] Assigned Surgical Provider 05/19/20 08/21/20 Camille Chandler PA-C [address] [facility] [address] [place] [address] Assigned Neuroscience Provider 05/19/20 09/14/20 Anabela Barakat APRN RETAIL LOAN ORIGINATOR ASSISTANT [address]00 [place] [address] Assigned Heart and Vascular Provider 08/15/20 08/05/21 Nima France PA-C [address] [facility] [facility] [address] [place], [place] [address] Assigned Musculoskeletal Provider 08/22/20 11/13/20 [place] [address] [facility] [place], [place] [address] Assigned Musculoskeletal Provider 11/14/20 12/04/20 Fawad York MD [address] [place], [place] [address] Assigned Musculoskeletal Provider 12/05/20 02/05/21 Roopa Almonte MD [address] [facility] 200 [place] [address] Endocrinology, Diabetes, and Metabolism 01/19/21 [place] [address] [facility] 300 [place], [place] [address] Assigned Musculoskeletal Provider 02/06/21 09/16/21 Maryse Burton PA-C [address] [place] [address] Physician Forklift Supervisor Dermatology 04/14/21 Marquita Starkey MD [address] [facility] 200 [place], [place] [address] Internal Medicine 05/06/21 05/06/21 Roopa Almonte MD [address] [facility] 200 [place], [place] [address] Hospitalist Endocrinology, Diabetes, and Metabolism 05/30/21 Griffin Joshi MD [address] [facility] [facility] [address] [place] [address] Cardiovascular Disease 07/25/21 Rina Magallon, RN Lead Oiler Helper 07/29/21 07/11/22 Griffin Joshi MD [address] [place] [address] Assigned Heart and Vascular Provider 08/06/21 10/07/21 Roopa Almonte MD [address] [place] [address] 200 [place] [address] Assigned Endocrinology Provider 09/10/21 [place] [address] [facility] [place] [address] Assigned Musculoskeletal Provider 09/17/21 10/14/21 Lydia Bernstein PA-C [address] [facility] [facility] [address] [place] [address] Assigned PCP 10/01/21 10/21/21 Rosa Maria Love CHW Community Health Worker 10/06/21 07/11/22 [place] [address] [address] [facility] [address] [place] [address] Assigned Musculoskeletal Provider 10/15/21 04/26/23 Paula Reza MD [address] [place] [address] Assigned PCP 10/22/21 12/23/21 Keerthi Miner APRN RETAIL LOAN ORIGINATOR ASSISTANT [address] [place] [address] Assigned Heart and Vascular Provider 10/08/21 02/10/22 Shahida Sutton APRN RETAIL LOAN ORIGINATOR ASSISTANT Assigned PCP 12/24/21 03/24/22 Porsha Michaels APRN RETAIL LOAN ORIGINATOR ASSISTANT [address] [address] Assigned Heart and Vascular Provider 02/11/22 05/12/22 Paula Reza MD [address] [place] [address] Assigned PCP 03/25/22 04/07/22 Shahida Sutton APRN RETAIL LOAN ORIGINATOR ASSISTANT [address] [address] Assigned PCP 04/08/22 06/30/22 Daylin Ludwig, EP [facility] [address] [address] Cardiac Rehabilitation Therapist 05/16/23 Laurel Velasquez MD [address] [place] [place] [address] Assigned Heart and Vascular Provider 05/13/22 06/30/22 Daylin Ludwig, EP [facility] [address] [address] Cardiac Rehabilitation Therapist 06/08/22 06/09/23 Paula Reza MD [address] [place], [place] [address] Assigned PCP 07/01/22 07/07/22 Porsha Michaels APRN RETAIL LOAN ORIGINATOR ASSISTANT [address] [place] [address] Assigned Heart and Vascular Provider 07/01/22 07/07/22 Laurel Velasquez MD [address] [place] [address] Assigned Heart and Vascular Provider 07/08/22 08/04/22 Shahida Sutton APRN RETAIL LOAN ORIGINATOR ASSISTANT Assigned PCP 07/08/22 09/08/22 Marilin Montaño, RETAIL LOAN ORIGINATOR ASSISTANT [address] [place] [address] Assigned Heart and Vascular Provider 08/05/22 Esha Dewitt MD [address] [place] [address] 36 [place], [place] [address] Gastroenterology 09/06/22 Heather Mosquera MD [address] [place] [address] Internal Medicine 09/06/22 Paula Reza MD [address] [place] [address] Assigned PCP 09/09/22 01/05/23 Esha Dewitt MD [address] [facility] 36 [place] [address] Assigned Gastroenterology Provider 09/23/22 Valdo Escamilla PA-C [address] [facility] [address] [place] [address] Assigned Neuroscience Provider 09/30/22 Nohelia Abarca PA-C [address] [place] [address] Physician Forklift Supervisor Gastroenterology 10/03/22 Heather Mosquera MD [address] [place] [address] Assigned PCP 01/06/23 Fawad York MD [address] [place] [address] Assigned Musculoskeletal Provider 04/27/23 06/25/23 documented as of this encounter
--- OUTSIDE RECORDS SUMMARY | 2023-12-25 08:18 | XMS_ITS | Encounter Summary ---
Author Organization [facility] Address [address] [place] [address] Care Team Providers Care Switchboard Operator Receptionist Name Role Phone Mingo Aldana MD Primary Car e Provider Herman, Shahida Cummings APRN PERFORMANCE ARCHITECT Primary Care Provi ford Unavailable Herman, Shahida Cummings APRN PERFORMANCE ARCHITECT Unavailable Un available Herman, Shahida Cummings APRN PERFORMANCE ARCHITECT Unavailable Un available Carolynn Ramon RN Unavailable [phone] Augustine Callaway MD Unavailable Brady Lion MD Unavailable Un available Nima France-C Unavailable [phone] Camille Chandler PA-C Unavailable [phone] Anabela Barakat APRN PERFORMANCE ARCHITECT Unavailable Nima France-C Unavailable [phone] Basilio Morillo DO Unavailable Fawad York MD Unavailable [phone] Roopa Almonte MD Unavailable [phone] Augustine Callaway MD Unavailable Maryse Burton PA-C Unavailable Marquita Starkey MD Unavailable [phone] Roopa Almonte MD Unavailable [phone] Griffin Joshi MD Unavailable Rina Magallon RN Unavailable [phone] Paula Reza MD Primary Care Provider [phone] Griffin Joshi MD Unavailable Roopa Almonte MD Unavailable [phone] [facility] islandBasilio win DO Unavailable Lydia Bernstein PA-C Unavailable Rosa Maria Love Unavailable [phone] Augustine Callaway MD Unavailable Paula Reza MD Unavailable Keerthi Miner APRN PERFORMANCE ARCHITECT Unavailable Herman, Shahida Cummings APRN PERFORMANCE ARCHITECT Unavailable Un available Porsha Michaels APRN PERFORMANCE ARCHITECT Unavailable [phone] Paula Reza MD Unavailable Herman, Shahida Cummings APRN PERFORMANCE ARCHITECT Unavailable Un available Daylin Ludwig Unavailable [phone] Laurel Velasquez MD Unavailable [phone] Daylin Ludwig Unavailable [phone] Paula Reza MD Unavailable Porsha Michaels APRN PERFORMANCE ARCHITECT Unavailable [phone] Laurel Velasquez MD Unavailable [phone] Herman, Shahida Cummings APRN PERFORMANCE ARCHITECT Unavailable Un available Marilin Montaño PERFORMANCE ARCHITECT Unavailable [phone] Esha Dewitt MD Unavailable [phone] Heather Mosquera MD Unavailable Paula Reza MD Unavailable Esha Dewitt MD Unavailable [phone] AyseStanford cabrerashiv Desouza PA-C Unavailable Nohelia Abarca PA-C Unavailable Heather Mosquera MD Unavailable Fawad York MD Unavailable [phone] Reason for Visit * Reason Onset Date Comments MyChart Communication 11/06/2012 11/06/12 CT results Encounter Details Date Type Department Care Team (Late st Contact Info) Description 11/06/2012 [facility] [address], [address] [place] [address] Mingo Aldana MD [facility] [address] [place] [address] MyChart Communication (11/06/12 CT results) Social History [...] Out COVID-19 02/15/2020 02/15/2020 02/16/2020 2:32 PM REALTY LOAN SPECIALIST Rule Out COVID-19 01/05/2021 01/05/2021 01/06/2021 12:57 PM CDT ESBL 01/05/2021 01/05/2021 Rule Out COVID-19 06/30/2021 06/30/2021 07/01/2021 9:34 AM CDT Rule Out COVID-19 07/25/2021 07/25/2021 07/25/2021 8:02 PM CDT documented as of this encounter Care Teams Switchboard Operator Receptionist Relationship Specialty Start Date End Date Katya Jasonyaneth Bimal Celestin MD PCP - General Family Practice 07/22/09 07/12/14 Shahida Sutton APRN PERFORMANCE ARCHITECT PCP - General Nurse Practitioner 08/17/14 08/04/21 Shahida Sutton APRN PERFORMANCE ARCHITECT PCP - Assigned PCP 07/12/14 05/07/18 Paula Reza MD [address] [place] [address] PCP - General Internal Medicine 08/05/21 Shahida Sutton APRN PERFORMANCE ARCHITECT Assigned PCP 07/12/14 09/30/21 Carolynn Ramon, KASIE Personal Advocate & Liaison (PAL) 12/17/18 08/07/21 [place] [address] [place] [address] Assigned Musculoskeletal Provider 12/26/19 08/21/20 Brady Lion MD Assigned Heart and Vascular Provider 12/26/19 08/14/20 Nima France PA-C [address] [place] [address] Assigned Surgical Provider 05/19/20 08/21/20 Camille Chandler PA-C [address]45 [facility] [address] [place], [place] [address] Assigned Neuroscience Provider 05/19/20 09/14/20 Anabela Barakat APRN PERFORMANCE ARCHITECT [address] [place] [address] Assigned Heart and Vascular Provider 08/15/20 08/05/21 Nima France PA-C 6545 [facility] [address] [place] [address] Assigned Musculoskeletal Provider 08/22/20 11/13/20 [place] [address] [place] [address] Assigned Musculoskeletal Provider 11/14/20 12/04/20 Fawad York MD [address] [place] [address] Assigned Musculoskeletal Provider 12/05/20 02/05/21 Roopa Almonte MD [address] [facility] 200 [place] [address] Endocrinology, Diabetes, and Metabolism 01/19/21 [place] [address] [facility] [address] [place], [place] [address] Assigned Musculoskeletal Provider 02/06/21 09/16/21 Maryse Burton PA-C [address] [place], [place] [address] Physician Tool Hardener Dermatology 04/14/21 Marquita Starkey MD [address] [facility] [address] [place] [address] Internal Medicine 05/06/21 05/06/21 Roopa Almonte MD [address] [facility] [address] [place] [address] Hospitalist Endocrinology, Diabetes, and Metabolism 05/30/21 Griffin Joshi MD [address] [place] [address] Cardiovascular Disease 07/25/21 Rina Magallon RN Lead Paralegal Internship 07/29/21 07/11/22 Griffin Joshi MD [address] [place] [address] Assigned Heart and Vascular Provider 08/06/21 10/07/21 Roopa Almonte MD [address] [place], [place] [address] Assigned Endocrinology Provider 09/10/21 [place] [address] [facility] [place] [address] Assigned Musculoskeletal Provider 09/17/21 10/14/21 Lydia Bernstein PA-C [address] [place] [address] Assigned PCP 10/01/21 10/21/21 Klarissa Lovesay, W Community Health Worker 10/06/21 [place] [address] [place] [address] Assigned Musculoskeletal Provider 10/15/21 04/26/23 Paula Reza MD [address] [place] [address] Assigned PCP 10/22/21 12/23/21 Keerthi Miner APRN PERFORMANCE ARCHITECT [address] [place] [address] Assigned Heart and Vascular Provider 10/08/21 02/10/22 Shahida Sutton APRN PERFORMANCE ARCHITECT Assigned PCP 12/24/21 03/24/22 Porsha Michaels APRN PERFORMANCE ARCHITECT [address] [place] [address] Assigned Heart and Vascular Provider 02/11/22 05/12/22 Paula Reza MD [address] [place] [address] Assigned PCP 03/25/22 04/07/22 Shahida Sutton APRN PERFORMANCE ARCHITECT [address] [place] [address] Assigned PCP 04/08/22 06/30/22 Daylin Ludwig EP [facility] [address] [address] Cardiac Rehabilitation Therapist 05/16/23 Laurel Velasquez MD [address] [address] Assigned Heart and Vascular Provider 05/13/22 06/30/22 Daylin Ludwig EP [facility] [address] [place] [address] Cardiac Rehabilitation Therapist 06/08/22 06/09/23 Paula Reza MD [address] [facility] [address] [place], [place] [address] Assigned PCP 07/01/22 07/07/22 Porsha Michaels APRN PERFORMANCE ARCHITECT [address] [place] [address] Assigned Heart and Vascular Provider 07/01/22 07/07/22 Laurel Velasquez MD [address] [place] [address] Assigned Heart and Vascular Provider 07/08/22 08/04/22 Shahida Sutton, AUTOMOBILE WASHER STEAM PERFORMANCE ARCHITECT Assigned PCP 07/08/22 09/08/22 Marilin Montaño, PERFORMANCE ARCHITECT [address] [place] [address] Assigned Heart and Vascular Provider 08/05/22 Esha Dewitt MD 420 [facility] 36 [place], [place] [address] Gastroenterology 09/06/22 Heather Mosquera MD [address] [place] [address] Internal Medicine 09/06/22 Paula Reza MD [address] [place] [address] Assigned PCP 09/09/22 01/05/23 Esha Dewitt MD 420 [facility] 36 [place], [place] [address] Assigned Gastroenterology Provider 09/23/22 Valdo Escamilla PA-C [address] [facility] [address] [place], [place] [address] Assigned Neuroscience Provider 09/30/22 Nohelia Abarca PA-C [address] [facility] [facility] [place], [place] [address] Physician Tool Hardener Gastroenterology 10/03/22 Heather Mosquera MD [address] [place] [address] Assigned PCP 01/06/23 Fawad York MD [address] [place], [place] [address] Assigned Musculoskeletal Provider 04/27/23 06/25/23 documented as of this encounter
--- OUTSIDE RECORDS SUMMARY | 2023-12-25 08:18 | XMS_ITS | Encounter Summary ---
Author Organization [facility] Address [address] [place] [address] Care Team Providers Care Professor Of Chemical Engineering Name Role Phone Mingo Aldana MD Primary Car e Provider Herman, Shahida Cummings APRN VEIN PUMPER Primary Care Provi ford Unavailable Herman, Shahida Cummings APRN VEIN PUMPER Unavailable Un available Herman, Shahida Cummings APRN VEIN PUMPER Unavailable Un available Carolynn Ramon RN Unavailable [phone] Augustine Callaway MD Unavailable Brady Lion MD Unavailable Un available Nima France-C Unavailable [phone] Camille Chandler PA-C Unavailable [phone] Anabela Barakat APRN VEIN PUMPER Unavailable Nima France-C Unavailable [phone] Basilio Morillo DO Unavailable Fawad York MD Unavailable [phone] Roopa Almonte MD Unavailable [phone] Augustine Callaway MD Unavailable Maryse Burton PA-C Unavailable Marquita Starkey MD Unavailable [phone] Roopa Almonte MD Unavailable [phone] Griffin Joshi MD Unavailable Rina Maagllon RN Unavailable [phone] Paula Reza MD Primary Care Provider [phone] Griffin Joshi MD Unavailable Roopa Almonte MD Unavailable [phone] [facility] hospital[facility]ilio win DO Unavailable Lydia Bernstein PA-C Unavailable Rosa Maria Love Unavailable [phone] Augustine Callaway MD Unavailable Paula Reza MD Unavailable Keerthi Miner APRN VEIN PUMPER Unavailable Herman, Shahida Cummings APRN VEIN PUMPER Unavailable Un available Porsha Michaels APRN VEIN PUMPER Unavailable [phone] Paula Reza MD Unavailable Herman, Shahida Cummings APRN VEIN PUMPER Unavailable Un available Daylin Ludwig Unavailable [phone] Laurel Velasquez MD Unavailable [phone] Daylin Ludwig Unavailable [phone] Paula Reza MD Unavailable Porsha Michaels APRN VEIN PUMPER Unavailable [phone] Laurel Velasquez MD Unavailable [phone] Herman, Shahida Cummings APRN VEIN PUMPER Unavailable Un available Marilin Montaño VEIN PUMPER Unavailable [phone] Esha Dewitt MD Unavailable [phone] Heather Mosquera MD Unavailable Paula Reza MD Unavailable Esha Dewitt MD Unavailable [phone] Valdo Escamilla Deo PA-C Unavailable Nohelia Abarca PA-C Unavailable [phone] Heather Mosquera MD Unavailable Fawad York MD Unavailable [phone] Reason for Visit * Reason Onset Date Comments Refill Request 07/05/2012 Toprol XL Encounter Details Date Type Department Care Team (Late st Contact Info) Description 07/05/2012 MyC Refill M [address], [address] [place] [address] Mingo Aldana MD [facility] [address] [place] [address] Refill Request (Toprol XL) Social History Tobacco [...] King - 07/05/2012 10:53 AM CDTMessage from [facility]: Original authorizing provider: Mingo Aldana MD, MD Mauro Terrell would like a refill of the following medications: metoprolol (TOPROL-XL) 50 MG 24 hr tablet [Mingo Aldana MD, ] Preferred pharmacy: [facility] [place] [address] [address] Comment: I requested this through [...] Out COVID-19 02/15/2020 02/15/2020 02/16/2020 2:32 PM 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 Rule Out COVID-19 01/05/2021 01/05/2021 01/06/2021 12:57 PM CDT ESBL 01/05/2021 01/05/2021 Rule Out COVID-19 06/30/2021 06/30/2021 07/01/2021 9:34 AM CDT Rule Out COVID-19 07/25/2021 07/25/2021 07/25/2021 8:02 PM CDT documented as of this encounter Care Teams Professor Of Chemical Engineering Relationship Specialty Start Date End Date Mingo Aldana MD PCP - General Family Practice 07/22/09 07/12/14 Shahida Sutton APRN VEIN PUMPER PCP - General Nurse Practitioner 08/17/14 08/04/21 Shahida Sutton APRN VEIN PUMPER PCP - Assigned PCP 07/12/14 05/07/18 Paula Reza MD [address] [facility] 200 [place] [address] PCP - General Internal Medicine 08/05/21 Shahida Sutton APRN VEIN PUMPER Assigned PCP 07/12/14 09/30/21 Carolynn Ramon RN Personal Advocate & Liaison (PAL) 12/17/18 08/07/21 [place] [address] [place], [place] [address] Assigned Musculoskeletal Provider 12/26/19 08/21/20 Brady Lion MD Assigned Heart and Vascular Provider 12/26/19 08/14/20 Nima France PA-C [address] [place] [address] Assigned Surgical Provider 05/19/20 08/21/20 Camille Chandler PA-C [address] [place] [address] Assigned Neuroscience Provider 05/19/20 09/14/20 Anabela Barakat APRN VEIN PUMPER 1700 [place] [address] Assigned Heart and Vascular Provider 08/15/20 08/05/21 Nima France PA-C 6545 [facility] 450 [place] [address] Assigned Musculoskeletal Provider 08/22/20 11/13/20 [place] [address] [facility] [place], [place] [address] Assigned Musculoskeletal Provider 11/14/20 12/04/20 Fawad York MD [address] [place], [place] [address] Assigned Musculoskeletal Provider 12/05/20 02/05/21 Roopa Almonte MD [address] [employer] [facility] 200 [place] [address] Endocrinology, Diabetes, and Metabolism 01/19/21 [place] [address] [facility] 300 [place] [address] Assigned Musculoskeletal Provider 02/06/21 09/16/21 Maryse Burton PA-C [address] [place] [address] Physician Rail Car Mechanic Dermatology 04/14/21 Marquita Starkey MD [address] [facility] [address] [place] [address] Internal Medicine 05/06/21 05/06/21 Roopa Almonte MD [address] [place] [address] Hospitalist Endocrinology, Diabetes, and Metabolism 05/30/21 Griffin Joshi MD [address] [facility] [address] [place] [address] Cardiovascular Disease 07/25/21 Rina Magallon, RN Lead Metal Drilling 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 07/29/21 07/11/22 Griffin Joshi MD [address] [facility] [address] [place] [address] Assigned Heart and Vascular Provider 08/06/21 10/07/21 Roopa Almonte MD [address] [facility] 200 [place], [place] [address] Assigned Endocrinology Provider 09/10/21 [place] [address] [place] [address] Assigned Musculoskeletal Provider 09/17/21 10/14/21 Lydia Bernstein PA-C [address] [facility] [address] [place] [address] Assigned PCP 10/01/21 10/21/21 Rosa Maria Love CHW Community Health Worker 10/06/21 [place] [address] [facility] 300 [place] [address] Assigned Musculoskeletal Provider 10/15/21 04/26/23 Paula Reza MD [address] [place] [address] Assigned PCP 10/22/21 12/23/21 Keerthi Miner APRN VEIN PUMPER [address] [place] [address] Assigned Heart and Vascular Provider 10/08/21 02/10/22 Shahida Sutton APRN VEIN PUMPER Assigned PCP 12/24/21 03/24/22 Porsha Michaels APRN VEIN PUMPER [address] [place] [address] Assigned Heart and Vascular Provider 02/11/22 05/12/22 Paula Reza MD [address] [place] [address] Assigned PCP 03/25/22 04/07/22 Shahida Sutton APRN VEIN PUMPER [address] [place] [address] Assigned PCP 04/08/22 06/30/22 Daylin Ludwig EP [facility] [address] [place] [address] Cardiac Rehabilitation Therapist 05/16/23 Laurel Velasquez MD [address] [address] Assigned Heart and Vascular Provider 05/13/22 06/30/22 Daylin Ludwig EP [facility] [address] [place] [address] Cardiac Rehabilitation Therapist 06/08/22 06/09/23 Paula Reza MD [address] [place], [place] [address] Assigned PCP 07/01/22 07/07/22 Porsha Michaels APRN VEIN PUMPER [address] [place] [address] Assigned Heart and Vascular Provider 07/01/22 07/07/22 Laurel Velasquez MD [address] [place] [address] Assigned Heart and Vascular Provider 07/08/22 08/04/22 Shahida Sutton, DRIVING INSTRUCTOR VEIN PUMPER Assigned PCP 07/08/22 09/08/22 aMrilin Montaño, VEIN PUMPER [address] [place] [address] Assigned Heart and Vascular Provider 08/05/22 Esha Dewitt MD [address] [place] [address] 36 [place], [place] [address] Gastroenterology 09/06/22 Heather Mosquera MD [address] [place] [address] Internal Medicine 09/06/22 Paula Reza MD [address] [place] [address] Assigned PCP 09/09/22 01/05/23 Esha Dewitt MD 420 [facility] 36 [place], [place] [address] Assigned Gastroenterology Provider 09/23/22 Valdo Escamilla PA-C 6363 [facility] 103 [place], [place] [address] Assigned Neuroscience Provider 09/30/22 Nohelia Abarca PA-C [address] [place], [place] [address] Physician Rail Car Mechanic Gastroenterology 10/03/22 Heather Mosquera MD 6545 [facility] 150 [place], [place] [address] Assigned PCP 01/06/23 Fawad York MD [address] [place], [place] [address] Assigned Musculoskeletal Provider 04/27/23 06/25/23 documented as of this encounter
--- OUTSIDE RECORDS SUMMARY | 2023-12-25 08:18 | XMS_ITS | Encounter Summary ---
Author Organization Holder Address [address] [place] [address] Care Team Providers Care Search Engine Marketing Strategist Name Role Phone Mingo Aldana MD Primary Car e Provider Herman, Shaihda Cummings APRN END FINDER TWISTING DEPARTMENT Primary Care Provi ford Unavailable Herman, Shahida Cummings APRN END FINDER TWISTING DEPARTMENT Unavailable Un available Herman, Shahida Cummings APRN END FINDER TWISTING DEPARTMENT Unavailable Un available Carolynn Ramon RN Unavailable [phone] Augustine Callaway MD Unavailable Brady Lion MD Unavailable Un available Nima France-C Unavailable [phone] Camille Chandler PA-C Unavailable [phone] Anabela Barakat APRN END FINDER TWISTING DEPARTMENT Unavailable Nima France-C Unavailable [phone] Basilio Morillo DO Unavailable Fawad York MD Unavailable [phone] Roopa Almonte MD Unavailable [phone] Augustine Callaway MD Unavailable Maryse Burton PA-C Unavailable Marquita Starkey MD Unavailable [phone] Roopa Almonte MD Unavailable [phone] Griffin Joshi MD Unavailable Rina Magallon RN Unavailable [phone] Paula Reza MD Primary Care Provider [phone] Griffin Joshi MD Unavailable Roopa Almonte MD Unavailable [phone] [facility] win DO Unavailable Lydia Bernstein PA-C Unavailable Rosa Maria Love Unavailable [phone] Augustine Callaway MD Unavailable Paula Reza MD Unavailable Keerthi Miner APRN END FINDER TWISTING DEPARTMENT Unavailable Herman, Shahida Cummings APRN END FINDER TWISTING DEPARTMENT Unavailable Un available Porsha Michaels APRN END FINDER TWISTING DEPARTMENT Unavailable [phone] Paula Reza MD Unavailable Herman, Shahida Cummings APRN END FINDER TWISTING DEPARTMENT Unavailable Un available Daylin Ludwig Unavailable [phone] Laurel Velasquez MD Unavailable [phone] Daylin Ludwig Unavailable [phone] Paula Reaz MD Unavailable Porsha Michaels APRN END FINDER TWISTING DEPARTMENT Unavailable [phone] Laurel Velasquez MD Unavailable [phone] Herman, Shahida Cummings APRN END FINDER TWISTING DEPARTMENT Unavailable Un available Marilin Montaño END FINDER TWISTING DEPARTMENT Unavailable [phone] Esha Dewitt MD Unavailable [phone] Heather Mosquera MD Unavailable Paula Reza MD Unavailable Esha Dewitt MD Unavailable [phone] Valdo Escamilla PA-C Unavailable [phone] Nohelia Abarca PA-C Unavailable [phone] Heather Mosquera MD Unavailable [phone] Fawad York MD Unavailable [phone] Encounter Details Date Type Department Care Team (Late st Contact Info) Description 03/27/2013 [facility] [address] [address] Brenda Nicolas MA Social History [...] Out COVID-19 02/15/2020 02/15/2020 02/16/2020 2:32 PM CUSTOMS COMPLIANCE SPECIALIST Rule Out COVID-19 01/05/2021 01/05/2021 01/06/2021 12:57 PM CDT ESBL 01/05/2021 01/05/2021 Rule Out COVID-19 06/30/2021 06/30/2021 07/01/2021 9:34 AM CDT Rule Out COVID-19 07/25/2021 07/25/2021 07/25/2021 8:02 PM CDT documented as of this encounter Care Teams Search Engine Marketing Strategist Relationship Specialty Start Date End Date Mingo Aldana MD PCP - General Family Practice 07/22/09 07/12/14 Shahida Sutton APRN END FINDER TWISTING DEPARTMENT PCP - General Nurse Practitioner 08/17/14 08/04/21 Shahida Sutton APRN END FINDER TWISTING DEPARTMENT PCP - Assigned PCP 07/12/14 05/07/18 Paula Reza MD [address] [facility] [address] [place] [address] PCP - General Internal Medicine 08/05/21 Shahida Sutton APRN END FINDER TWISTING DEPARTMENT Assigned PCP 07/12/14 09/30/21 Carolynn Ramon RN Personal Advocate & Liaison (PAL) 12/17/18 08/07/21 [place] [address] [place], [place] [address] Assigned Musculoskeletal Provider 12/26/19 08/21/20 Brady Lion MD Assigned Heart and Vascular Provider 12/26/19 08/14/20 Nima France PA-C [address] [place] [address] Assigned Surgical Provider 05/19/20 08/21/20 Camille Chandler PA-C [address] [place] [address] Assigned Neuroscience Provider 05/19/20 09/14/20 Anabela Barakat APRN END FINDER TWISTING DEPARTMENT [address] [place] [address] Assigned Heart and Vascular Provider 08/15/20 08/05/21 Nima France PA-C [address] [facility] [address] [place] [address] Assigned Musculoskeletal Provider 08/22/20 11/13/20 [place] [address] Replaced by [facility] [place], [place] [address] Assigned Musculoskeletal Provider 11/14/20 12/04/20 Fawad York MD [address] [place], [place] [address] Assigned Musculoskeletal Provider 12/05/20 02/05/21 Roopa Almonte MD [address] [facility] 200 [place] [address] Endocrinology, Diabetes, and Metabolism 01/19/21 [place] [address] [facility] 300 [place] [address] Assigned Musculoskeletal Provider 02/06/21 09/16/21 Maryse Burton PA-C [address] [place] [address] Physician [facility] Dermatology 04/14/21 Marquita Starkey MD [address] [facility] 200 [place] [address] Internal Medicine 05/06/21 05/06/21 Roopa Almonte MD [address] [place] [address] Hospitalist Endocrinology, Diabetes, and Metabolism 05/30/21 Griffin Joshi MD [address] [facility] [address] [place] [address] Cardiovascular Disease 07/25/21 Rina Magallon, RN Lead Account Service Associate 07/29/21 07/11/22 Griffin Joshi MD [address] [place] [address] Assigned Heart and Vascular Provider 08/06/21 10/07/21 Roopa Almonte MD [address] 200 [place] [address] Assigned Endocrinology Provider 09/10/21 [place] [address] [facility] [place] [address] Assigned Musculoskeletal Provider 09/17/21 10/14/21 Lydia Bernstein PA-C [address] [facility] [address] [place] [address] Assigned PCP 10/01/21 10/21/21 Rosa Maria Love CHW Community Health Worker 10/06/21 [place] [address] [place] [address] Assigned Musculoskeletal Provider 10/15/21 04/26/23 Paula Reza MD [address] [place] [address] Assigned PCP 10/22/21 12/23/21 Keerthi Miner APRN END FINDER TWISTING DEPARTMENT [address] [place] [address] Assigned Heart and Vascular Provider 10/08/21 02/10/22 Shahida Sutton APRN END FINDER TWISTING DEPARTMENT Assigned PCP 12/24/21 03/24/22 Porsha Michaels APRN END FINDER TWISTING DEPARTMENT [address] [place] [address] Assigned Heart and Vascular Provider 02/11/22 05/12/22 Paula Reza MD [address] [place] [address] Assigned PCP 03/25/22 04/07/22 Shahida Sutton APRN END FINDER TWISTING DEPARTMENT [address] [place] [address] Assigned PCP 04/08/22 06/30/22 Daylin Ludwig, MIKI [facility] [address] [place] [address] Cardiac Rehabilitation Therapist 05/16/23 Laurel Velasquez MD [address] [place] [address] Assigned Heart and Vascular Provider 05/13/22 06/30/22 Daylin Ludwig, MIKI [facility] [address] [place], [place] [address] Cardiac Rehabilitation Therapist 06/08/22 06/09/23 Paula Reza MD [address] [place], [place] [address] Assigned PCP 07/01/22 07/07/22 Porsha Michaels APRN END FINDER TWISTING DEPARTMENT [address] [place] [address] Assigned Heart and Vascular Provider 07/01/22 07/07/22 Laurel Velasquez MD [address] [place] [address] Assigned Heart and Vascular Provider 07/08/22 08/04/22 Shahida Sutton, DUANE END FINDER TWISTING DEPARTMENT Assigned PCP 07/08/22 09/08/22 Marilin Montaño, END FINDER TWISTING DEPARTMENT [address] [place] [address] Assigned Heart and Vascular Provider 08/05/22 Esha Dewitt MD [address] [place] [address] [address] [place], [place] [address] Gastroenterology 09/06/22 Heather Mosquera MD [address] [place] [address] Internal Medicine 09/06/22 Paula Reza MD [address] [place] [address] Assigned PCP 09/09/22 01/05/23 Esha Dewitt MD [address] [facility] [address] [place], [place] [address] Assigned Gastroenterology Provider 09/23/22 Valdo Escamilla PA-C [address] [facility] [address] [place] [address] Assigned Neuroscience Provider 09/30/22 Nohelia Abarca PA-C [address] [place] [address] Physician [facility] Gastroenterology 10/03/22 Heather Mosquera MD [address] [facility] [facility] 150 [place] [address] Assigned PCP 01/06/23 Fawad York MD [address] [place], [place] [address] Assigned Musculoskeletal Provider 04/27/23 06/25/23 documented as of this encounter
--- OUTSIDE RECORDS SUMMARY | 2023-12-25 08:18 | XMS_ITS | Encounter Summary ---
Author Organization [employer] Address [address] [place] [address] Care Team Providers Care Commercial Artist Lettering Name Role Phone Mingo Aldana MD Primary Car e Provider Herman, Shahida Cummings APRN FORMULATOR Primary Care Provi ford Unavailable Herman, Shahida Cummings APRN FORMULATOR Unavailable Un available Herman, Shahida Cummings APRN FORMULATOR Unavailable Un available Carolynn Ramon RN Unavailable [phone] Augustine Callaway MD Unavailable Brady Lion MD Unavailable Un available Nima France-C Unavailable [phone] Camille Chandler PA-C Unavailable [phone] Anabela Barakat APRN FORMULATOR Unavailable Nima France-C Unavailable [phone] Basilio Morillo DO Unavailable Fawad York MD Unavailable [phone] Roopa Almonte MD Unavailable [phone] Augustine Callaway MD Unavailable Maryse Burton PA-C Unavailable Marquita Starkey MD Unavailable [phone] Roopa Almonte MD Unavailable [phone] Griffin Joshi MD Unavailable Rina Magallon RN Unavailable [phone] Paula Reza MD Primary Care Provider [phone] Griffin Joshi MD Unavailable Roopa Almonte MD Unavailable [phone] [facility] center[facility] win DO Unavailable Lydia Bernstein PA-C Unavailable Rosa Maria Love Unavailable [phone] Augustine Callaway MD Unavailable Paula Reza MD Unavailable Keerthi Miner APRN FORMULATOR Unavailable Herman, Shahida Cummings APRN FORMULATOR Unavailable Un available Porsha Michaels APRN FORMULATOR Unavailable [phone] Paula Reza MD Unavailable Herman, Shahida Cummings APRN FORMULATOR Unavailable Un available Daylin Ludwig Unavailable [phone] Laurel Velasquez MD Unavailable [phone] Daylin Ludwig Unavailable [phone] Paula Reza MD Unavailable Porsha Michaels APRN FORMULATOR Unavailable [phone] Laurel Velasquez MD Unavailable [phone] Herman, Shahida Cummings APRN FORMULATOR Unavailable Un available Marilin Montaño FORMULATOR Unavailable [phone] Esha Dewitt MD Unavailable [phone] Heather Mosquera MD Unavailable Paula Reza MD Unavailable Esha Dewitt MD Unavailable [phone] Valdo Escamilla Deo PA-C Unavailable [phone] Nohelia Abarca PA-C Unavailable [phone] Heather Mosquera MD Unavailable [phone] Fawad York MD Unavailable [phone] Reason for Visit * Reason Onset Date Comments Refill Request 01/05/2014 norco Encounter Details Date Type Department Care Team (Late st Contact Info) Description 01/05/[address] [address] Mingo Aldana MD [facility] [address] [place] [address] Refill Request ([employer]) Social History Tobacco Use Types Packs/Day Years [...] PM CST Patient informed to pick-up via [employer]. NDER FEEDER * Telephone Encounter - Shayla Callahan RN - 01/05/2014 12:52 PM CSTMessage from [employer] Knowledge Solutionst: Original authorizing provider: Mingo Aldana MD, MD Mauro Terrell would like a refill of the following medications: HYDROcodone-acetaminophen (NORCO) 10-325 MG per tablet [Mingo Aldana MD, MD] Preferred pharmacy: [id number] [address] RIZWANA Calderon Comment: NDER FEEDER documented in this encounter Plan of Treatment Not on file documented as of this encounter Visit Diagnoses Diagnosis Cervicalgia Radicular pain in right arm Neuralgia, neuritis, and radiculitis, unspecified documented in this encounter Additional Health Concerns Infection Onset Date Last Indicated Resolved Time Rule Out COVID-19 02/15/2020 02/15/2020 02/16/2020 2:32 PM CALENDER FEEDER Rule Out COVID-19 01/05/2021 01/05/2021 01/06/2021 12:57 PM CDT ESBL 01/05/2021 01/05/2021 Rule Out COVID-19 06/30/2021 06/30/2021 07/01/2021 9:34 AM CDT Rule Out COVID-19 07/25/2021 07/25/2021 07/25/2021 8:02 PM CDT documented as of this encounter Care Teams Commercial Artist Lettering Relationship Specialty Start Date End Date Mingo Aldana MD PCP - General Family Practice 07/22/09 07/12/14 Shahida Sutton APRN FORMULATOR PCP - General Nurse Practitioner 08/17/14 08/04/21 Shahida Sutton APRN FORMULATOR PCP - Assigned PCP 07/12/14 05/07/18 Paula Reza MD [address] [address] PCP - General Internal Medicine 08/05/21 Shahida Sutton APRN CNP Assigned PCP 07/12/14 09/30/21 Carolynn Ramon, KASIE Personal Advocate & Liaison (PAL) 12/17/18 08/07/21 [place] [address] [place] [address] Assigned Musculoskeletal Provider 12/26/19 08/21/20 Brady Lion MD Assigned Heart and Vascular Provider 12/26/19 08/14/20 Nima France PA-C [address] [place] [address] Assigned Surgical Provider 05/19/20 08/21/20 Camille Chandler PA-C [address] [place] [address] Assigned Neuroscience Provider 05/19/20 09/14/20 Anabela Barakat APRN FORMULATOR [address] [place] [address] Assigned Heart and Vascular Provider 08/15/20 08/05/21 Nima France PA-C [address] [place], [place] [address] Assigned Musculoskeletal Provider 08/22/20 11/13/20 [place] [address] [facility] [place] [address] Assigned Musculoskeletal Provider 11/14/20 12/04/20 Fawad York MD [address] [place], [place] [address] Assigned Musculoskeletal Provider 12/05/20 02/05/21 Roopa Almonte MD [address] [facility] 200 [place] [address] Endocrinology, Diabetes, and Metabolism 01/19/21 [place] [address] [facility] [address] [place] [address] Assigned Musculoskeletal Provider 02/06/21 09/16/21 Maryse Burton PA-C [address] [place] [address] Physician Pet Crematory Worker Dermatology 04/14/21 Marquita Starkey MD [address] [facility] [address] [place] [address] Internal Medicine 05/06/21 05/06/21 Roopa Almonte MD [address] [facility] [address] [place] [address] Hospitalist Endocrinology, Diabetes, and Metabolism 05/30/21 Griffin Joshi MD [address] [place] [address] Cardiovascular Disease 07/25/21 Rina Magallon, RN Lead Strategic Communications Specialist 07/29/21 07/11/22 Griffin Joshi MD [address] [place] [address] Assigned Heart and Vascular Provider 08/06/21 10/07/21 Roopa Almonte MD [address] [address] [place] [address] Assigned Endocrinology Provider 09/10/21 [place] [address] [facility] [place] [address] Assigned Musculoskeletal Provider 09/17/21 10/14/21 Lydia Bernstein PA-C [address] [place] [address] Assigned PCP 10/01/21 10/21/21 Rosa Maria oLve Cristina Community Health Worker 10/06/21 [place] [address] [facility] [address] [place] [address] Assigned Musculoskeletal Provider 10/15/21 04/26/23 Paula Reza MD [address] [facility] 200 [place] [address] Assigned PCP 10/22/21 12/23/21 Keerthi Miner APRN FORMULATOR [address] [place] [address] Assigned Heart and Vascular Provider 10/08/21 02/10/22 Shahida Sutton APRN FORMULATOR Assigned PCP 12/24/21 03/24/22 Porsha Michaels APRN FORMULATOR [address] [place] [address] Assigned Heart and Vascular Provider 02/11/22 05/12/22 Paula Reza MD [address] [place] [address] Assigned PCP 03/25/22 04/07/22 Shahida Sutton APRN FORMULATOR [address] [place] [address] Assigned PCP 04/08/22 06/30/22 Daylin Ludwig, EP [facility] [address] [place] [address] Cardiac Rehabilitation Therapist 05/16/23 Laurel Velasquez MD [address] [place] [address] Assigned Heart and Vascular Provider 05/13/22 06/30/22 Daylin Ludwig, MIKI [facility] [address] [place] [address] Cardiac Rehabilitation Therapist 06/08/22 06/09/23 Paula Reza MD [address] [place] [address] Assigned PCP 07/01/22 07/07/22 Porsha Michaels APRN FORMULATOR [address] [place] [address] Assigned Heart and Vascular Provider 07/01/22 07/07/22 Laurel Velasquez MD [address] [place], [place] [address] Assigned Heart and Vascular Provider 07/08/22 08/04/22 Shahida Sutton, DIRECTOR OF SPECIAL EDUCATION FORMULATOR Assigned PCP 07/08/22 09/08/22 Marilin Montaño, FORMULATOR [address] [place] [address] Assigned Heart and Vascular Provider 08/05/22 Esha Dewitt MD [address] [address] Gastroenterology 09/06/22 Heather Mosquera MD [address] [place] [address] Internal Medicine 09/06/22 Paula Reza MD [address] [facility] 200 [place] [address] Assigned PCP 09/09/22 01/05/23 Esha Dewitt MD [address] [address] Assigned Gastroenterology Provider 09/23/22 Valdo Escamilla PA-C [address] [place] [address] Assigned Neuroscience Provider 09/30/22 Nohelia Abarca PA-C [address] [place] [address] Physician Pet Crematory Worker Gastroenterology 10/03/22 Heather Mosquera MD [address] [address] Assigned PCP 01/06/23 Fawad York MD [address] [place], [place] [address] Assigned Musculoskeletal Provider 04/27/23 06/25/23 documented as of this encounter
--- OUTSIDE RECORDS SUMMARY | 2023-12-25 08:18 | XMS_ITS | Encounter Summary ---
Author Organization [place] Address [address] [place] [address] Care Team Providers Care Theatrical Scenic Designer Name Role Phone Mingo Aldana MD Primary Car e Provider Herman, Shahida Cummings APRN IT CORPORATE RECRUITER Primary Care Provi ford Unavailable Herman, Shahida Cummings APRN IT CORPORATE RECRUITER Unavailable Un available Herman, Shahida Cummings APRN IT CORPORATE RECRUITER Unavailable Un available Carolynn Ramon RN Unavailable [phone] Augustine Callaway MD Unavailable Brady Lion MD Unavailable Un available Nima France-C Unavailable [phone] Camille Chandler PA-C Unavailable [phone] Anabela Barakat APRN IT CORPORATE RECRUITER Unavailable Nima France-C Unavailable [phone] Basilio Morillo DO Unavailable [phone] Fawad York MD Unavailable [phone] Roopa Almonte MD Unavailable [phone] Augustine Callaway MD Unavailable Maryse Burton PA-C Unavailable Marquita Starkey MD Unavailable [phone] Roopa Almonte MD Unavailable [phone] Griffin Joshi MD Unavailable Rina Magallon RN Unavailable [phone] Paula Reza MD Primary Care Provider [phone] Griffin Joshi MD Unavailable Roopa Almonte MD Unavailable [phone] [facility] win DO Unavailable Lydia Bernstein PA-C Unavailable Rosa Maria Love Unavailable [phone] Augustine Callaway MD Unavailable Paula Reza MD Unavailable Keerthi Miner APRN IT CORPORATE RECRUITER Unavailable Herman, Shahida Cummings APRN IT CORPORATE RECRUITER Unavailable Un available Porsha Michaels APRN IT CORPORATE RECRUITER Unavailable [phone] Paula Reza MD Unavailable Herman, Shahida Cummings APRN IT CORPORATE RECRUITER Unavailable Un available Daylin Ludwig Unavailable [phone] Laurel Velasquez MD Unavailable [phone] Daylin Ludwig Unavailable [phone] Paula Reza MD Unavailable Porsha Michaels APRN IT CORPORATE RECRUITER Unavailable [phone] Laurel Velasquez MD Unavailable [phone] Herman, Shahida Cummings APRN IT CORPORATE RECRUITER Unavailable Un available Marilin Montaño IT CORPORATE RECRUITER Unavailable [phone] Esha Dewitt MD Unavailable [phone] Heather Mosquera MD Unavailable Paula Reza MD Unavailable Esha Dewitt MD Unavailable [phone] Valdo Escamilla Deo PA-C Unavailable Nohelia Abarca PA-C Unavailable [phone] Heather Mosquera MD Unavailable [phone] Fawad York MD Unavailable [phone] Reason for Visit * Reason Onset Date Comments Refill Request 02/09/2014 ambien Encounter Details Date Type Department Care Team (Late st Contact Info) Description 02/09/[address] [address] Mingo Aldana MD [facility] [address] [place] [address] Refill Request (ambien) Social History [...] MD] Preferred pharmacy: 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: NICAL SALES ENGINEER documented in this encounter Plan of Treatment Not on file documented as of this encounter Visit Diagnoses Diagnosis Moderate major depression (H) Major depressive disorder, single episode, moderate documented in this encounter Additional Health Concerns Infection Onset Date Last Indicated Resolved Time Rule Out COVID-19 02/15/2020 02/15/2020 02/16/2020 2:32 PM TECHNICAL SALES ENGINEER Rule Out COVID-19 01/05/2021 01/05/2021 01/06/2021 12:57 PM CDT ESBL 01/05/2021 01/05/2021 Rule Out COVID-19 06/30/2021 06/30/2021 07/01/2021 9:34 AM CDT Rule Out COVID-19 07/25/2021 07/25/2021 07/25/2021 8:02 PM CDT documented as of this encounter Care Teams Theatrical Scenic Designer Relationship Specialty Start Date End Date Mingo Aldana MD PCP - General Family Practice 07/22/09 07/12/14 Shahida Sutton APRN IT CORPORATE RECRUITER PCP - General Nurse Practitioner 08/17/14 08/04/21 Shahida Sutton APRN IT CORPORATE RECRUITER PCP - Assigned PCP 07/12/14 05/07/18 Paula Reza MD [facility] [address] [address] PCP - General Internal Medicine 08/05/21 Shahida Sutton APRN IT CORPORATE RECRUITER Assigned PCP 07/12/14 09/30/21 Carolynn Ramon, KASIE Personal Advocate & Liaison (PAL) 12/17/18 08/07/21 [place] [address] [place] [address] Assigned Musculoskeletal Provider 12/26/19 08/21/20 Brady Lion MD Assigned Heart and Vascular Provider 12/26/19 08/14/20 Nima France PA-C [address] [facility] 450 [place] [address] Assigned Surgical Provider 05/19/20 08/21/20 Camille Chandler PA-C [address] [facility] [address] [place] [address] Assigned Neuroscience Provider 05/19/20 09/14/20 Anabela Barakat APRN CNP [facility] [place] [address] Assigned Heart and Vascular Provider 08/15/20 08/05/21 Nima France PA-C [address] [address] [place] [address] Assigned Musculoskeletal Provider 08/22/20 11/13/20 [place] [address] [place] [address] Assigned Musculoskeletal Provider 11/14/20 12/04/20 Fawad York MD [address] [place] [address] Assigned Musculoskeletal Provider 12/05/20 02/05/21 Roopa Almonte MD [address] [facility] 200 [place] [address] Endocrinology, Diabetes, and Metabolism 01/19/21 [place] [address] [facility] 300 [place] [address] Assigned Musculoskeletal Provider 02/06/21 09/16/21 Maryse Burton PA-C [address] [place] [address] Physician Tiller Man Dermatology 04/14/21 Marquita Starkey MD [address] [facility] 200 [place] [address] Internal Medicine 05/06/21 05/06/21 Roopa Almonte MD [address] [facility] 200 [place] [address] Hospitalist Endocrinology, Diabetes, and Metabolism 05/30/21 Griffin Joshi MD [address] [facility] [address] [place] [address] Cardiovascular Disease 07/25/21 Rina Magallon, RN Lead Tree Doctor 07/29/21 07/11/22 Griffin Joshi MD [address] [facility] [address] [place] [address] Assigned Heart and Vascular Provider 08/06/21 10/07/21 Roopa Almonte MD [address] [facility] 200 [place], [place] [address] Assigned Endocrinology Provider 09/10/21 [place] [address] [place] [address] Assigned Musculoskeletal Provider 09/17/21 10/14/21 Lydia Bernstein PA-C [address] [place] [address] Assigned PCP 10/01/21 10/21/21 Rosa Maria Love CHW Community Health Worker 10/06/21 [place] [address] [place] [address] Assigned Musculoskeletal Provider 10/15/21 04/26/23 Paula Reza MD [address] [place], [place] [address] Assigned PCP 10/22/21 12/23/21 Keerthi Miner APRN IT CORPORATE RECRUITER [address] [place] [address] Assigned Heart and Vascular Provider 10/08/21 02/10/22 Shahida Sutton APRN IT CORPORATE RECRUITER Assigned PCP 12/24/21 03/24/22 Porsha Michaels APRN IT CORPORATE RECRUITER [address] [address] Assigned Heart and Vascular Provider 02/11/22 05/12/22 Paula Reza MD [address] [place] [address] Assigned PCP 03/25/22 04/07/22 Shahida Sutton APRN IT CORPORATE RECRUITER [address] [place] [address] Assigned PCP 04/08/22 06/30/22 Daylin Ludwig, MIKI [facility] [address] [place] [address] Cardiac Rehabilitation Therapist 05/16/23 Laurel Velasquez MD [address] [place] [address] Assigned Heart and Vascular Provider 05/13/22 06/30/22 Daylin Ludwig, MIKI [facility] [address] [place] [address] Cardiac Rehabilitation Therapist 06/08/22 06/09/23 Paula Reza MD [address] [place] [address] Assigned PCP 07/01/22 07/07/22 Porsha Michaels APRN IT CORPORATE RECRUITER [address] [place] [address] Assigned Heart and Vascular Provider 07/01/22 07/07/22 Laurel Velasquez MD [address] [place] [address] Assigned Heart and Vascular Provider 07/08/22 08/04/22 Shahida Sutton APRN IT CORPORATE RECRUITER Assigned PCP 07/08/22 09/08/22 Marilin Montaño, IT CORPORATE RECRUITER [address] [place] [address] Assigned Heart and Vascular Provider 08/05/22 Esha Dewitt MD [address] [facility] 36 [place], [place] [address] MD Gastroenterology 09/06/22 Heather Mosquera MD [address] [place] [address] Internal Medicine 09/06/22 Paula Reza MD [address] [facility] 200 [place], [place] [address] Assigned PCP 09/09/22 01/05/23 Esha Dewitt MD [address] [facility] 36 [place], [place] [address] Assigned Gastroenterology Provider 09/23/22 Valdo Escamilla PA-C [address] [facility] [address] [place], [place] [address] Assigned Neuroscience Provider 09/30/22 Nohelai Abarca PA-C [address] [place], [place] [address] Physician Tiller Man Gastroenterology 10/03/22 Heather Mosquera MD [address] [place] [address] Assigned PCP 01/06/23 Fawad York MD [address] [place] [address] Assigned Musculoskeletal Provider 04/27/23 06/25/23 documented as of this encounter
--- OUTSIDE RECORDS SUMMARY | 2023-12-25 08:18 | XMS_ITS | Encounter Summary ---
Author Organization [place] Address [address] [place] [address] Care Team Providers Care Dip Stand Loader Name Role Phone Mingo Aldana MD Primary Car e Provider Herman, Shahida Cummings APRN EMERGENCY CREW SUPERVISOR Primary Care Provi ford Unavailable Herman, Shahida Cummings APRN EMERGENCY CREW SUPERVISOR Unavailable Un available Herman, Shahida Cummings APRN EMERGENCY CREW SUPERVISOR Unavailable Un available Carolynn Ramon RN Unavailable [phone] Augustine Callaway MD Unavailable Brady Lion MD Unavailable Un available Nima France-C Unavailable [phone] Camille Chandler PA-C Unavailable [phone] Anabela Barakat APRN EMERGENCY CREW SUPERVISOR Unavailable Nima France-C Unavailable [phone] Basilio Morillo DO Unavailable [phone] Fawad York MD Unavailable [phone] Roopa Almonte MD Unavailable [phone] Augustine Callaway MD Unavailable Maryse Burton PA-C Unavailable Marquita Starkey MD Unavailable [phone] Roopa Almonte MD Unavailable [phone] Griffin Joshi MD Unavailable Rina Magallon RN Unavailable [phone] Paula Reza MD Primary Care Provider [phone] Griffin Joshi MD Unavailable Roopa Almonte MD Unavailable [phone] [facility] island[facility] win DO Unavailable Lydia Bernstein PA-C Unavailable Rosa Maria Love Unavailable [phone] Augustine Callaway MD Unavailable Paula Reza MD Unavailable Keerthi Miner APRN EMERGENCY CREW SUPERVISOR Unavailable Herman, Shahida Cummings APRN EMERGENCY CREW SUPERVISOR Unavailable Un available Porsha Michaels APRN EMERGENCY CREW SUPERVISOR Unavailable [phone] Paula Reza MD Unavailable Herman, Shahida Cummings APRN EMERGENCY CREW SUPERVISOR Unavailable Un available Dalyin Ludwig Unavailable [phone] Laurel Velasquez MD Unavailable [phone] Daylin Ludwig Unavailable [phone] Paula Reza MD Unavailable Porsha Michaels APRN EMERGENCY CREW SUPERVISOR Unavailable [phone] Laurel Velasquez MD Unavailable [phone] Herman, Shahida Cummings APRN EMERGENCY CREW SUPERVISOR Unavailable Un available Marilin Montaño EMERGENCY CREW SUPERVISOR Unavailable [phone] Esha Dewitt MD Unavailable [phone] Heather Mosquera MD Unavailable [phone] Paula Reza MD Unavailable Esha Dewitt MD Unavailable [phone] Valdo Escamilla Deo PA-C Unavailable Rima Wilfredosima PA-C Unavailable [phone] Heather Mosquera MD Unavailable [phone] Fawad York MD Unavailable [phone] Reason for Visit * Reason Onset Date Comments Refill Request 10/15/2012 Encounter Details Date Type Department Care Team (Late st Contact Info) Description 10/15/2012 [facility] [place] [id number] [address] [address] Kavon Garrido MD [address] [facility] [place] [address] Refill Request Social History Tobacco [...] Garrido MD, MD] Preferred pharmacy: [id number] [address] [address] Comment: Dr. Garrido, we have an appt scheduled next week. In you have any concerns I can be contacted at [phone]. 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 Rule Out COVID-19 01/05/2021 01/05/2021 01/06/2021 12:57 PM CDT ESBL 01/05/2021 01/05/2021 Rule Out COVID-19 06/30/2021 06/30/2021 07/01/2021 9:34 AM CDT Rule Out COVID-19 07/25/2021 07/25/2021 07/25/2021 8:02 PM CDT documented as of this encounter Care Teams Dip Stand Loader Relationship Specialty Start Date End Date Mingo Aldana MD PCP - General Family Practice 07/22/09 07/12/14 Shahida Sutton APRN CNP PCP - General Nurse Practitioner 08/17/14 08/04/21 Shahida Sutton APRN CNP PCP - Assigned PCP 07/12/14 05/07/18 Paula Reza MD [address] [facility] 200 [place] [address] PCP - General Internal Medicine 08/05/21 Shahida Sutton APRN CNP Assigned PCP 07/12/14 09/30/21 Carolynn Ramon, KASIE Personal Advocate & Liaison (PAL) 12/17/18 08/07/21 [place] [address] [place] [address] Assigned Musculoskeletal Provider 12/26/19 08/21/20 Brady Lion MD Assigned Heart and Vascular Provider 12/26/19 08/14/20 Nima France PA-C [address] [place] [address] Assigned Surgical Provider 05/19/20 08/21/20 Camille Chandler PA-C [address] [place], [place] [address] Assigned Neuroscience Provider 05/19/20 09/14/20 Anabela Barakat APRN EMERGENCY CREW SUPERVISOR [address] [place] [address] Assigned Heart and Vascular Provider 08/15/20 08/05/21 Nima France PA-C [address] [place], [place] [address] Assigned Musculoskeletal Provider 08/22/20 11/13/20 [place] [address] [facility] [place] [address] Assigned Musculoskeletal Provider 11/14/20 12/04/20 Fawad York MD [address] [place], [place] [address] Assigned Musculoskeletal Provider 12/05/20 02/05/21 Roopa Almonte MD [address] [facility] [facility] 200 [place] [address] Endocrinology, Diabetes, and Metabolism 01/19/21 [place] [address] [facility] 300 [place] [address] Assigned Musculoskeletal Provider 02/06/21 09/16/21 Maryse Burton PA-C [address] [place] [address] Physician Regional Refrigerated Cdl Truck Driver Dermatology 04/14/21 Marquita Starkey MD [address] [facility] [facility] 200 [place] [address] Internal Medicine 05/06/21 05/06/21 Roopa Almonte MD [address] [facility] 200 [place] [address] Hospitalist Endocrinology, Diabetes, and Metabolism 05/30/21 Griffin Joshi MD [address] [place] [address] Cardiovascular Disease 07/25/21 Rina Magallon, RN Lead Rn Internal Medicine 07/29/21 07/11/22 Griffin Joshi MD [address] [place] [address] Assigned Heart and Vascular Provider 08/06/21 10/07/21 Roopa Almonte MD [address] [facility] 200 [place] [address] Assigned Endocrinology Provider 09/10/21 [place] [address] [facility] [place] [address] Assigned Musculoskeletal Provider 09/17/21 10/14/21 Lydia Bernstein PA-C [address] [place] [address] Assigned PCP 10/01/21 10/21/21 Rosa Maria Love Cristina Community Health Worker 10/06/21 [place] [address] [facility] [address] [place] [address] Assigned Musculoskeletal Provider 10/15/21 04/26/23 Paula Reza MD [address] [place], [place] [address] Assigned PCP 10/22/21 12/23/21 Keerthi Miner APRN EMERGENCY CREW SUPERVISOR [address] [place] [address] Assigned Heart and Vascular Provider 10/08/21 02/10/22 Shahida Sutton APRN EMERGENCY CREW SUPERVISOR Assigned PCP 12/24/21 03/24/22 Porsha Michaels APRN EMERGENCY CREW SUPERVISOR [address] [place] [address] Assigned Heart and Vascular Provider 02/11/22 05/12/22 Paula Reza MD [address] [place], [place] [address] Assigned PCP 03/25/22 04/07/22 Shahida Sutton APRN EMERGENCY CREW SUPERVISOR [address] [place] [address] Assigned PCP 04/08/22 06/30/22 Daylin Ludwig, EP [facility] [address] [place] [address] Cardiac Rehabilitation Therapist 05/16/23 Laurel Velasquez MD [address] [place] [place] [address] Assigned Heart and Vascular Provider 05/13/22 06/30/22 Daylin Ludwig, MIKI [facility] [address] [place] [address] Cardiac Rehabilitation Therapist 06/08/22 06/09/23 Paula Reza MD [address] [place] [address] Assigned PCP 07/01/22 07/07/22 Porsha Michaels APRN EMERGENCY CREW SUPERVISOR [address] [place] [address] Assigned Heart and Vascular Provider 07/01/22 07/07/22 Laurel Velasquez MD [address] [place], [place] [address] Assigned Heart and Vascular Provider 07/08/22 08/04/22 Shahida Sutton, [employer] SUPERINTENDENT EMERGENCY CREW SUPERVISOR Assigned PCP 07/08/22 09/08/22 Marilin Montaño, EMERGENCY CREW SUPERVISOR [address] [place] [address] Assigned Heart and Vascular Provider 08/05/22 Esha Dewitt MD [address] [place] [address] Gastroenterology 09/06/22 Heather Mosquera MD [address] [place] [address] Internal Medicine 09/06/22 Paula Reza MD [address] [facility] 200 [place] [address] Assigned PCP 09/09/22 01/05/23 Esha Dewitt MD [address] [place] [address] Assigned Gastroenterology Provider 09/23/22 Valdo Escamilla PA-C [address] [place] [address] Assigned Neuroscience Provider 09/30/22 Nohelia Abarca PA-C [address] [place] [address] Physician Regional Refrigerated Cdl Truck Driver Gastroenterology 10/03/22 Heather Mosquera MD [address] [address] Assigned PCP 01/06/23 Fawad York MD [address] [place], [place] [address] Assigned Musculoskeletal Provider 04/27/23 06/25/23 documented as of this encounter
--- OUTSIDE RECORDS SUMMARY | 2023-12-25 08:18 | XMS_ITS | Encounter Summary ---
Author Organization [place] Address [address] [place] [address] Care Team Providers Care Activity Director Name Role Phone Mingo Aldana MD Primary Car e Provider Hreman, Shahida Cummings APRN VERTICAL BORING MILL OPERATOR Primary Care Provi ford Unavailable Herman, Shahida Cummings APRN VERTICAL BORING MILL OPERATOR Unavailable Un available Herman, Shahida Cummings APRN VERTICAL BORING MILL OPERATOR Unavailable Un available Carolynn Ramon RN Unavailable [phone] Augustine Callaway MD Unavailable Brady Lion MD Unavailable Un available Nima France-C Unavailable [phone] Camille Chandler PA-C Unavailable [phone] Anabela Barakat APRN VERTICAL BORING MILL OPERATOR Unavailable Nima France-C Unavailable [phone] Basilio Morillo DO Unavailable Fawad York MD Unavailable [phone] Roopa Almonte MD Unavailable [phone] Augustine Callaway MD Unavailable Maryse Burton PA-C Unavailable Marquita Starkey MD Unavailable [phone] Roopa Almonte MD Unavailable [phone] Griffin Joshi MD Unavailable Rina Magallon RN Unavailable [phone] Paula Reza MD Primary Care Provider [phone] Griffin Joshi MD Unavailable Roopa Almonte MD Unavailable [phone] [facility] DO Unavailable Lydia Bernstein PA-C Unavailable Rosa Maria Love Unavailable [phone] Augustine Callaway MD Unavailable Paula Reza MD Unavailable Keerthi Miner APRN VERTICAL BORING MILL OPERATOR Unavailable Herman, Shahida Cummings APRN VERTICAL BORING MILL OPERATOR Unavailable Un available Porsha Michaels APRN VERTICAL BORING MILL OPERATOR Unavailable [phone] Paula Reza MD Unavailable Herman, Shahida Cummings APRN VERTICAL BORING MILL OPERATOR Unavailable Un available Daylin Ludwig Unavailable [phone] Laurel Velasquez MD Unavailable [phone] Daylin Ludwig Unavailable [phone] Paula Reza MD Unavailable Porsha Michaels APRN VERTICAL BORING MILL OPERATOR Unavailable [phone] Laurel Velasquez MD Unavailable [phone] Herman, Shahida Cummings APRN VERTICAL BORING MILL OPERATOR Unavailable Un available Marilin Montaño VERTICAL BORING MILL OPERATOR Unavailable [phone] Esha Dewitt MD Unavailable [phone] Heather Mosquera MD Unavailable Paula Reza MD Unavailable Esha Dewitt MD Unavailable [phone] AyseStanford cabrerashiv Desouza PA-C Unavailable Nohelia Abarca PA-C Unavailable [phone] Heather Mosquera MD Unavailable Fawad York MD Unavailable [phone] Reason for Visit * Reason Onset Date Comments Outreach 04/26/2013 [facility] Encounter Details Date Type Department Care Team (Late st Contact Info) Description 04/26/[address] [address] Mingo Aldana MD [facility] [address] [place] [address] Outreach (PHS) Social History Tobacco [...] Attempt 2 Message on voicemail Comments: 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 SPECIALIST * Telephone Encounter - Sadiq Sol - 04/26/2013 5:12 PM CST 04/26/2013 Call Regarding Preventive Health Screening Colonoscopy Attempt 1 Message on voicemail Comments: Outreach Sales Exec rbg LATORY AFFAIRS STRATEGY SPECIALIST documented in this encounter Plan of Treatment Not on file documented as of this encounter Visit Diagnoses Not on filedocumented in this encounter Additional Health Concerns Infection Onset Date Last Indicated Resolved Time Rule Out COVID-19 02/15/2020 02/15/2020 02/16/2020 2:32 PM 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 Rule Out COVID-19 01/05/2021 01/05/2021 01/06/2021 12:57 PM CDT ESBL 01/05/2021 01/05/2021 Rule Out COVID-19 06/30/2021 06/30/2021 07/01/2021 9:34 AM CDT Rule Out COVID-19 07/25/2021 07/25/2021 07/25/2021 8:02 PM CDT documented as of this encounter Care Teams Activity Director Relationship Specialty Start Date End Date Mingo Aldana MD PCP - General Family Practice 07/22/09 07/12/14 Shahida Sutton APRN VERTICAL BORING MILL OPERATOR PCP - General Nurse Practitioner 08/17/14 08/04/21 Shahida Sutton APRN VERTICAL BORING MILL OPERATOR PCP - Assigned PCP 07/12/14 05/07/18 Paula eRza MD [address] [facility] [address] [place], [place] [address] PCP - General Internal Medicine 08/05/21 Shahida Sutton APRN VERTICAL BORING MILL OPERATOR Assigned PCP 07/12/14 09/30/21 Carolynn Ramon, KASIE Personal Advocate & Liaison (PAL) 12/17/18 08/07/21 [place] [address] [place] [address] Assigned Musculoskeletal Provider 12/26/19 08/21/20 Brady Lion MD Assigned Heart and Vascular Provider 12/26/19 08/14/20 Nima France PA-C [address] [facility] [address] [place] [address] Assigned Surgical Provider 05/19/20 08/21/20 Camille Chandler PA-C [address] [facility] [address] [place] [address] Assigned Neuroscience Provider 05/19/20 09/14/20 Anabela Barakat APRN VERTICAL BORING MILL OPERATOR [address] [place] [address] Assigned Heart and Vascular Provider 08/15/20 08/05/21 Nima France PA-C [address] [facility] [address] [place] [address] Assigned Musculoskeletal Provider 08/22/20 11/13/20 [place] [address] [facility] [place] [address] Assigned Musculoskeletal Provider 11/14/20 12/04/20 Fawad York MD [address] [place] [address] Assigned Musculoskeletal Provider 12/05/20 02/05/21 Roopa Almonte MD [address] [facility] [address] [place] [address] Endocrinology, Diabetes, and Metabolism 01/19/21 [place] [address] [facility] [address] [place] [address] Assigned Musculoskeletal Provider 02/06/21 09/16/21 Maryse Burton PA-C [address] [place] [address] Physician Tank Washer Dermatology 04/14/21 Marquita Starkey MD [address] [place] [facility] [address] [place] [address] Internal Medicine 05/06/21 05/06/21 Roopa Almonte MD [address] [facility] [address] [place] [address] Hospitalist Endocrinology, Diabetes, and Metabolism 05/30/21 Griffin Joshi MD [address] [facility]00 [place] [address] Cardiovascular Disease 07/25/21 Rina Magallon, RN Lead Community Outreach Coordinator 07/29/21 07/11/22 Griffin Joshi MD [address] [facility]00 [place] [address] Assigned Heart and Vascular Provider 08/06/21 10/07/21 Roopa Almonte MD [address] [facility] 200 [place], [place] [address] Assigned Endocrinology Provider 09/10/21 [place] [address] [address] [place] [address] Assigned Musculoskeletal Provider 09/17/21 10/14/21 Lydia Bernstein, HUYC [address] [place] [address] Assigned PCP 10/01/21 10/21/21 Rosa Maria Love CHW Community Health Worker 10/06/21 [place] [address] [place] [address] Assigned Musculoskeletal Provider 10/15/21 04/26/23 Paula Reza MD [address] [place] [address] Assigned PCP 10/22/21 12/23/21 Keerthi Miner APRN VERTICAL BORING MILL OPERATOR [address] [place] [address] Assigned Heart and Vascular Provider 10/08/21 02/10/22 Shahida Sutton, CRANE MAN VERTICAL BORING MILL OPERATOR Assigned PCP 12/24/21 03/24/22 Porsha Michaels APRN VERTICAL BORING MILL OPERATOR [address] [place] [address] Assigned Heart and Vascular Provider 02/11/22 05/12/22 Paula Reza MD [address] [place] [address] Assigned PCP 03/25/22 04/07/22 Shahida Sutton APRN VERTICAL BORING MILL OPERATOR [address] [place] [address] Assigned PCP 04/08/22 06/30/22 Daylin Ludwig, [facility] [address] [place] [address] Cardiac Rehabilitation Therapist 05/16/23 Laurel Velasquez MD [address] [place] [address] Assigned Heart and Vascular Provider 05/13/22 06/30/22 Daylin Ludwig, [facility] [address] [place] [address] Cardiac Rehabilitation Therapist 06/08/22 06/09/23 Paula Reza MD [address] [address] Assigned PCP 07/01/22 07/07/22 Porsha Michaels APRN VERTICAL BORING MILL OPERATOR [address] [place] [address] Assigned Heart and Vascular Provider 07/01/22 07/07/22 Laurel Velasquez MD [address] [place] [address] Assigned Heart and Vascular Provider 07/08/22 08/04/22 Shahida Sutton APRN VERTICAL BORING MILL OPERATOR Assigned PCP 07/08/22 09/08/22 Marilin Montaño, VERTICAL BORING MILL OPERATOR [address] [place] [address] Assigned Heart and Vascular Provider 08/05/22 Esha Dewitt MD [address] [facility] 36 [place] [address] MD Gastroenterology 09/06/22 Heather Mosquera MD [address] [place] [address] Internal Medicine 09/06/22 Paula Reza MD [address] [facility] [address] [place], [place] [address] Assigned PCP 09/09/22 01/05/23 Esha Dewitt MD [address] [facility] 36 [place], [place] [address] Assigned Gastroenterology Provider 09/23/22 Valdo Escamilla PA-C [address] [facility] [address] [address] [place] [id number] Assigned Neuroscience Provider 09/30/22 Nohelia Abarca PA-C [address] [facility] [place] [place] [address] Physician Tank Washer Gastroenterology 10/03/22 Heather Mosquera MD [address] [place] [address] Assigned PCP 01/06/23 Fawad York MD 9 [place] [address] Assigned Musculoskeletal Provider 04/27/23 06/25/23 documented as of this encounter
--- OUTSIDE RECORDS SUMMARY | 2023-12-25 08:18 | XMS_ITS | Encounter Summary ---
Author Organization [place] Address [address] [place] [address] Care Team Providers Care Copier Operator Name Role Phone Mingo Aldana MD Primary Car e Provider Herman, Shahida Cummings APRN TUMBLER PLATER Primary Care Provi ford Unavailable Herman, Shahida Cummings APRN TUMBLER PLATER Unavailable Un available Herman, Shahida Cummings APRN TUMBLER PLATER Unavailable Un available Carolynn Ramon RN Unavailable [phone] Augustine Callaway MD Unavailable Brady Lion MD Unavailable Un available Nima France-C Unavailable [phone] Camille Chandler PA-C Unavailable [phone] Anabela Barakat APRN TUMBLER PLATER Unavailable Nima France-C Unavailable [phone] Basilio Morillo DO Unavailable Fawad York MD Unavailable [phone] Roopa Almonte MD Unavailable [phone] Augustine Callaway MD Unavailable Maryse Burton PA-C Unavailable Marquita Starkey MD Unavailable [phone] Roopa Almonte MD Unavailable [phone] Griffin Joshi MD Unavailable Rina Magallon RN Unavailable [phone] Paula Reza MD Primary Care Provider [phone] Griffin Joshi MD Unavailable Roopa Almonte MD Unavailable [phone] [facility] win DO Unavailable Lydia Bernstein PA-C Unavailable Rosa Maria Love Unavailable [phone] Augustine Callaway MD Unavailable Paula Reza MD Unavailable Keerthi Miner APRN TUMBLER PLATER Unavailable Herman, Shahida Cummings APRN TUMBLER PLATER Unavailable Un available Porsha Michaels APRN TUMBLER PLATER Unavailable [phone] Paula Reza MD Unavailable Herman, Shahida Cummings APRN TUMBLER PLATER Unavailable Un available Daylin Ludwig Unavailable [phone] Laurel Velasquez MD Unavailable [phone] Daylin Ludwig Unavailable [phone] Paula Reza MD Unavailable Porsha Michaels APRN TUMBLER PLATER Unavailable [phone] Laurel Velasquez MD Unavailable [phone] Herman, Shahida Cummings APRN TUMBLER PLATER Unavailable Un available Marilin Montaño TUMBLER PLATER Unavailable [phone] Esha Dewitt MD Unavailable [phone] Heather Mosquera MD Unavailable Paula Reza MD Unavailable Esha Dewitt MD Unavailable [phone] Valdo Escamilla Deo PA-C Unavailable Nohelia Abarca PA-C Unavailable [phone] Heather Mosquera MD Unavailable Fawad York MD Unavailable [phone] Reason for Visit * Reason Onset Date Comments Patient Inquiry 07/16/2012 Encounter Details Date Type Department Care Team (Late st Contact Info) Description 07/16/2012 [facility] [address] [address] Mingo Aldana MD [facility] [address] [place] [address] Patient Inquiry Social History Tobacco [...] Rule Out COVID-19 02/15/2020 02/15/202002/16/2020 2:32 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 Rule Out COVID-19 01/05/2021 01/05/2021 01/06/2021 12:57 PM CDT ESBL 01/05/2021 01/05/2021 Rule Out COVID-19 06/30/2021 06/30/2021 07/01/2021 9:34 AM CDT Rule Out COVID-19 07/25/2021 07/25/2021 07/25/2021 8:02 PM CDT documented as of this encounter Care Teams Copier Operator Relationship Specialty Start Date End Date Mingo Aldana MD PCP - General Family Practice 07/22/09 07/12/14 Shahida Sutton APRN TUMBLER PLATER PCP - General Nurse Practitioner 08/17/14 08/04/21 Shahida Sutton APRN TUMBLER PLATER PCP - Assigned PCP 07/12/14 05/07/18 Palua Reza MD [address] [facility] 200 [place] [address] PCP - General Internal Medicine 08/05/21 Shahida Sutton APRN TUMBLER PLATER Assigned PCP 07/12/14 09/30/21 Carolynn Ramon RN Personal Advocate & Liaison (PAL) 12/17/18 08/07/21 [place] [address] [place], [place] [address] Assigned Musculoskeletal Provider 12/26/19 08/21/20 Brady Lion MD Assigned Heart and Vascular Provider 12/26/19 08/14/20 Nima France PA-C [address] [facility] [address] [place] [address] Assigned Surgical Provider 05/19/20 08/21/20 Camille Chandler PA-C [address] [facility] [address] [place] [address] Assigned Neuroscience Provider 05/19/20 09/14/20 Anabela Barakat APRN TUMBLER PLATER [address] [place] [address] Assigned Heart and Vascular Provider 08/15/20 08/05/21 Nima France PA-C [address] [facility] [address] [place] [address] Assigned Musculoskeletal Provider 08/22/20 11/13/20 [place] [address] [place] [address] Assigned Musculoskeletal Provider 11/14/20 12/04/20 Fawad York MD 9 [place], [place] [address] Assigned Musculoskeletal Provider 12/05/20 02/05/21 Roopa Almonte MD [address] [place] [address] Endocrinology, Diabetes, and Metabolism 01/19/21 [place] [address] [address] [facility] [address] [place] [address] Assigned Musculoskeletal Provider 02/06/21 09/16/21 Maryse Burton PA-C [address] [place] [address] Physician Disintegrator Operator Dermatology 04/14/21 Marquita Starkey MD [address] [facility] 200 [place], [place] [address] Internal Medicine 05/06/21 05/06/21 Roopa Almonte MD [address] [facility] 200 [place], [place] [address] Hospitalist Endocrinology, Diabetes, and Metabolism 05/30/21 Griffin Joshi MD [address] [facility] [address] [place] [address] Cardiovascular Disease 07/25/21 Rina Magallon, RN Lead Fuel Operator 07/29/21 07/11/22 Griffin Joshi [place] [address] [facility] [address] [place] [address] Assigned Heart and Vascular Provider 08/06/21 10/07/21 Roopa Almonte MD [address] [place] [address] Assigned Endocrinology Provider 09/10/21 [place] [address] [facility] [place] [address] Assigned Musculoskeletal Provider 09/17/21 10/14/21 Lydia Bernstein PA-C [address] [place] [address] Assigned PCP 10/01/21 10/21/21 Kate Rosa Maria, CHW Community Health Worker 10/06/21 [place] [address] [place] [address] Assigned Musculoskeletal Provider 10/15/21 04/26/23 Paula Reza MD [address] [place] [address] Assigned PCP 10/22/21 12/23/21 Keerthi Miner APRN TUMBLER PLATER [address] [place] [address] Assigned Heart and Vascular Provider 10/08/21 02/10/22 Shahida Sutton APRN TUMBLER PLATER Assigned PCP 12/24/21 03/24/22 Porsha Michaels APRN TUMBLER PLATER [address] [place] [address] Assigned Heart and Vascular Provider 02/11/22 05/12/22 Paula Reza MD [address] [place] [address] Assigned PCP 03/25/22 04/07/22 Shahida Sutton APRN TUMBLER PLATER [address] [place] [address] Assigned PCP 04/08/22 06/30/22 Daylin Ludwig, EP [facility] [address] [place] [address] Cardiac Rehabilitation Therapist 05/16/23 Laurel Velasquez MD [address] [place] [address] Assigned Heart and Vascular Provider 05/13/22 06/30/22 Daylin Ludwig, EP [facility] [address] [address] Cardiac Rehabilitation Therapist 06/08/22 06/09/23 Paula Reza MD [address] [address] Assigned PCP 07/01/22 07/07/22 Porsha Michaels APRN TUMBLER PLATER [address] [place] [address] Assigned Heart and Vascular Provider 07/01/22 07/07/22 Laurel Velasquez MD [address] [address] Assigned Heart and Vascular Provider 07/08/22 08/04/22 Shahida Sutton APRN TUMBLER PLATER Assigned PCP 07/08/22 09/08/22 Marilin Montaño, TUMBLER PLATER [address] [place] [address] Assigned Heart and Vascular Provider 08/05/22 Esha Dewitt MD 420 [facility] 36 [place] [address] Gastroenterology 09/06/22 Heather Mosquera MD [address] [place] [address] Internal Medicine 09/06/22 Paula Reza MD [address] [place] [address] Assigned PCP 09/09/22 01/05/23 Esha Dewitt MD [address] [address] Assigned Gastroenterology Provider 09/23/22 Valdo Escamilla PA-C [address] [facility] [address] [place] [address] Assigned Neuroscience Provider 09/30/22 Nohelia Abarca PA-C [address] [place] [address] Physician Disintegrator Operator Gastroenterology 10/03/22 Heather Mosquera MD [address] [place] [address] Assigned PCP 01/06/23 Fawad York MD 9[address] [place], [place] [address] Assigned Musculoskeletal Provider 04/27/23 06/25/23 documented as of this encounter
--- OUTSIDE RECORDS SUMMARY | 2023-12-25 08:18 | XMS_ITS | Encounter Summary ---
Author Organization [facility] Address [address] [place] [address] Care Team Providers Care Glass Cut Off Supervisor Name Role Phone Mingo Aldana MD Primary Car e Provider Herman, Shahida Cummings APRN FIRST AID OFFICER Primary Care Provi ford Unavailable Herman, Shahida Cummings APRN FIRST AID OFFICER Unavailable Un available Herman, Shahida Cummings APRN FIRST AID OFFICER Unavailable Un available Carolynn Ramon RN Unavailable [phone] Augustine Callaway MD Unavailable Brady Lion MD Unavailable Un available Nmia France-C Unavailable [phone] Camille Chandler PA-C Unavailable [phone] Anabela Barakat APRN FIRST AID OFFICER Unavailable Nima France-C Unavailable [phone] Basilio Morillo DO Unavailable Fawad York MD Unavailable [phone] Roopa Almonte MD Unavailable [phone] Augustine Callaway MD Unavailable Maryse Burton PA-C Unavailable Marquita Starkey MD Unavailable [phone] Roopa Almonte MD Unavailable [phone] Griffin Joshi MD Unavailable Rina Magallon RN Unavailable [phone] Paula Reza MD Primary Care Provider [phone] Griffin Joshi MD Unavailable Roopa Almonte MD Unavailable [phone] [facility] Unavailable Lydia Bernstein PA-C Unavailable Rosa Maria Love Unavailable [phone] Augustine Callaway MD Unavailable Paula Reza MD Unavailable Keerthi Miner APRN FIRST AID OFFICER Unavailable Herman, Shahida Cummings APRN FIRST AID OFFICER Unavailable Un available Porsha Michaels APRN FIRST AID OFFICER Unavailable [phone] Paula Reza MD Unavailable Herman, Shahida Cummings APRN FIRST AID OFFICER Unavailable Un available Daylin Ludwig Unavailable [phone] Laurel Velasquez MD Unavailable [phone] Daylin Ludwig Unavailable [phone] Paula Reza MD Unavailable Porsha Michaels APRN FIRST AID OFFICER Unavailable [phone] Laurel Velasquez MD Unavailable [phone] Herman, Shahida Cummings APRN FIRST AID OFFICER Unavailable Un available Marilin Montaño FIRST AID OFFICER Unavailable [phone] Esha Dewitt MD Unavailable [phone] Heather Mosquera MD Unavailable [phone] Paula Reza MD Unavailable Esha Dewitt MD Unavailable [phone] Valdo Escamilla PA-C Unavailable Nohelia Abarca PA-C Unavailable [phone] Heather Mosquera MD Unavailable Fawad York MD Unavailable [phone] Encounter Details Date Type Department Care Team (Late st Contact Info) Description 12/05/[address] [address] [place] Social History Tobacco [...] Out COVID-19 02/15/2020 02/15/2020 02/16/2020 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 Rule Out COVID-19 01/05/2021 01/05/2021 01/06/2021 12:57 PM CDT ESBL 01/05/2021 01/05/2021 Rule Out COVID-19 06/30/2021 06/30/2021 07/01/2021 9:34 AM CDT Rule Out COVID-19 07/25/2021 07/25/2021 07/25/2021 8:02 PM CDT documented as of this encounter Care Teams Glass Cut Off Supervisor Relationship Specialty Start Date End Date Mingo Aldana MD PCP - General Family Practice 07/22/09 07/12/14 Shahida Sutton APRN FIRST AID OFFICER PCP - General Nurse Practitioner 08/17/14 08/04/21 Shahida Sutton APRN FIRST AID OFFICER PCP - Assigned PCP 07/12/14 05/07/18 Paula Reza MD [address] [facility] [address] [place] [address] PCP - General Internal Medicine 08/05/21 Shahida Sutton APRN FIRST AID OFFICER Assigned PCP 07/12/14 09/30/21 Carolynn Ramon RN Personal Advocate & Liaison (PAL) 12/17/18 08/07/21 [place] [address] [place], [place] [address] Assigned Musculoskeletal Provider 12/26/19 08/21/20 Brady Lion MD Assigned Heart and Vascular Provider 12/26/19 08/14/20 Nima France PA-C [address] [place] [address] Assigned Surgical Provider 05/19/20 08/21/20 Camille Chandler PA-C [address] [place] [address] Assigned Neuroscience Provider 05/19/20 09/14/20 Anabela Barakat APRN FIRST AID OFFICER [address] [place] [address] Assigned Heart and Vascular Provider 08/15/20 08/05/21 Nima France PA-C [address] [facility] [address] [place] [address] Assigned Musculoskeletal Provider 08/22/20 11/13/20 [place] [address] [facility] [place], [place] [address] Assigned Musculoskeletal Provider 11/14/20 12/04/20 Fawad York MD [address] [place], [place] [address] Assigned Musculoskeletal Provider 12/05/20 02/05/21 Roopa Almonte MD [address] [facility] [address] [place] [address] Endocrinology, Diabetes, and Metabolism 01/19/21 [place] [address] [facility] [address] [place] [address] Assigned Musculoskeletal Provider 02/06/21 09/16/21 Maryse Burton PA-C [address] [place] [address] Physician High Pressure Kettle Operator Dermatology 04/14/21 Marquita Starkey MD [address] [facility] [address] [place] [address] Internal Medicine 05/06/21 05/06/21 Roopa Almonte MD [address] [place] [address] Hospitalist Endocrinology, Diabetes, and Metabolism 05/30/21 Griffin Joshi MD [address] [place] [address] Cardiovascular Disease 07/25/21 Rina Magallon, RN Lead Supervisor Beam Department 07/29/21 07/11/22 Griffin Joshi MD [address] [place] [address] Assigned Heart and Vascular Provider 08/06/21 10/07/21 Roopa Almonte MD [address] [facility] [address] [place] [address] Assigned Endocrinology Provider 09/10/21 [place] [address] [place] [address] Assigned Musculoskeletal Provider 09/17/21 10/14/21 Lydia Bernstein PA-C [address] [facility] [address] [place] [address] Assigned PCP 10/01/21 10/21/21 Rosa Maria Love CHW Community Health Worker 10/06/21 [place] [address] [address] [place] [address] Assigned Musculoskeletal Provider 10/15/21 04/26/23 Paula Reza MD [address] [place] [address] Assigned PCP 10/22/21 12/23/21 Keerthi Miner APRN FIRST AID OFFICER [address] [place] [address] Assigned Heart and Vascular Provider 10/08/21 02/10/22 Shahida Sutton APRN FIRST AID OFFICER Assigned PCP 12/24/21 03/24/22 Porsha Michaels APRN FIRST AID OFFICER [address] [place] [address] Assigned Heart and Vascular Provider 02/11/22 05/12/22 Paula Reza MD [address] [place] [address] Assigned PCP 03/25/22 04/07/22 Shahida Sutton APRN FIRST AID OFFICER [address] [place] [address] Assigned PCP 04/08/22 06/30/22 Daylin Ludwig, MIKI [facility] [address] [place] [address] Cardiac Rehabilitation Therapist 05/16/23 Laurel Velasquez MD [address] [address] Assigned Heart and Vascular Provider 05/13/22 06/30/22 Daylin Ludwig [facility] [address] [place], [place] [address] Cardiac Rehabilitation Therapist 06/08/22 06/09/23 Paula Reza MD [address] [place], [place] [address] Assigned PCP 07/01/22 07/07/22 Porsah Michaels APRN FIRST AID OFFICER [address] [place] [address] Assigned Heart and Vascular Provider 07/01/22 07/07/22 Laurel Velasquez MD [address] [place] [address] Assigned Heart and Vascular Provider 07/08/22 08/04/22 Shahida Sutton, DUANE FIRST AID OFFICER Assigned PCP 07/08/22 09/08/22 Marilin Montaño, FIRST AID OFFICER [address] [place] [address] Assigned Heart and Vascular Provider 08/05/22 Esha Dewitt MD [address] [place] [address] Gastroenterology 09/06/22 Heather Mosquera MD [address] [place] [address] Internal Medicine 09/06/22 Paula Reza MD [address] [place] [address] Assigned PCP 09/09/22 01/05/23 Esha Dewitt MD [address] [facility] [address] [place] [address] Assigned Gastroenterology Provider 09/23/22 Valdo Escamilla PA-C [address] [facility] [address] [place], [place] [address] Assigned Neuroscience Provider 09/30/22 Nohelia Abarca PA-C [address] [place] [address] Physician High Pressure Kettle Operator Gastroenterology 10/03/22 Heather Mosquera MD [address] [facility] [address] [place] [address] Assigned PCP 01/06/23 Fawad York MD [address] [place], [place] [address] Assigned Musculoskeletal Provider 04/27/23 06/25/23 documented as of this encounter
--- OUTSIDE RECORDS SUMMARY | 2023-12-25 08:18 | XMS_ITS | Encounter Summary ---
Author Organization [facility] Address [address] [place] [address] Care Team Providers Care Tandem Mill Roller Name Role Phone Mingo Aldana MD Primary Car e Provider Herman, Shahida Cummings APRN MECHANICAL FACILITIES TECHNICIAN Primary Care Provi ford Unavailable Herman, Shahida Cummings APRN MECHANICAL FACILITIES TECHNICIAN Unavailable Un available Herman, Shahida Cummings APRN MECHANICAL FACILITIES TECHNICIAN Unavailable Un available Carolynn Ramon RN Unavailable [phone] Augustine Callaway MD Unavailable Brady Lion MD Unavailable Un available Nima France-C Unavailable [phone] Camille Chandler PA-C Unavailable [phone] Anabela Barakat APRN MECHANICAL FACILITIES TECHNICIAN Unavailable Nima France-C Unavailable [phone] Basilio Morillo DO Unavailable Fawad York MD Unavailable [phone] Roopa Almonte MD Unavailable [phone] Augustine Callaway MD Unavailable Maryse Burton PA-C Unavailable Marquita Starkey MD Unavailable [phone] Roopa Almonte MD Unavailable [phone] Griffin Joshi MD Unavailable Rina Magallon RN Unavailable [phone] Paula Reza MD Primary Care Provider [phone] Griffin Joshi MD Unavailable Roopa Almonte MD Unavailable [phone] [facility] DO Unavailable Lydia Bernstein PA-C Unavailable Rosa Maria Love Unavailable [phone] Augustine Callaway MD Unavailable Paula Reza MD Unavailable Keerthi Miner APRN MECHANICAL FACILITIES TECHNICIAN Unavailable Herman, Shahida Cummings APRN MECHANICAL FACILITIES TECHNICIAN Unavailable Un available Porsha Michaels APRN MECHANICAL FACILITIES TECHNICIAN Unavailable [phone] Paula Reza MD Unavailable Herman, Shahida Cummings APRN MECHANICAL FACILITIES TECHNICIAN Unavailable Un available Daylin Ludwig Unavailable [phone] Laurel Velasquez MD Unavailable [phone] Daylin Ludwig Unavailable [phone] Paula Reza MD Unavailable Porsha Michaels APRN MECHANICAL FACILITIES TECHNICIAN Unavailable [phone] Laurel Velasquez MD Unavailable [phone] Herman, Shahida Cummings APRN MECHANICAL FACILITIES TECHNICIAN Unavailable Un available Marilin Montaño MECHANICAL FACILITIES TECHNICIAN Unavailable [phone] Esha Dewitt MD Unavailable [phone] Heather Mosquera MD Unavailable Paula Reza MD Unavailable Esha Dewitt MD Unavailable [phone] Valdo Escamilla PA-C Unavailable [phone] Nohelia Abarca PA-C Unavailable [phone] Heather Mosquera MD Unavailable Fawad York MD Unavailable [phone] Encounter Details Date Type Department Care Team (Late st Contact Info) Description 03/27/2013 [facility] [address] [address] Brenda Nicolas MA Social History [...] Out COVID-19 02/15/2020 02/15/2020 02/16/2020 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 Rule Out COVID-19 01/05/2021 01/05/2021 01/06/2021 12:57 PM CDT ESBL 01/05/2021 01/05/2021 Rule Out COVID-19 06/30/2021 06/30/2021 07/01/2021 9:34 AM CDT Rule Out COVID-19 07/25/2021 07/25/2021 07/25/2021 8:02 PM CDT documented as of this encounter Care Teams Tandem Mill Roller Relationship Specialty Start Date End Date Mingo Aldana MD PCP - General Family Practice 07/22/09 07/12/14 Shahida Sutton APRN MECHANICAL FACILITIES TECHNICIAN PCP - General Nurse Practitioner 08/17/14 08/04/21 Shahida Sutton APRN MECHANICAL FACILITIES TECHNICIAN PCP - Assigned PCP 07/12/14 05/07/18 Paula Reza MD [address] [facility] 200 [place] [address] PCP - General Internal Medicine 08/05/21 Shahida Sutton APRN MECHANICAL FACILITIES TECHNICIAN Assigned PCP 07/12/14 09/30/21 Carolynn Ramon RN Personal Advocate & Liaison (PAL) 12/17/18 08/07/21 [place] [address] [address] [place], [place] [address] Assigned Musculoskeletal Provider 12/26/19 08/21/20 Brady Lion MD Assigned Heart and Vascular Provider 12/26/19 08/14/20 Nima France PA-C [address] [place] [address] Assigned Surgical Provider 05/19/20 08/21/20 Camille Chandler PA-C [address] [place] [address] Assigned Neuroscience Provider 05/19/20 09/14/20 Anabela Barakat APRN MECHANICAL FACILITIES TECHNICIAN [address] [place] [address] Assigned Heart and Vascular Provider 08/15/20 08/05/21 Nima France PA-C [address] [facility] [address] [place] [address] Assigned Musculoskeletal Provider 08/22/20 11/13/20 [place] [address] [facility] [place], [place] [address] Assigned Musculoskeletal Provider 11/14/20 12/04/20 Fawad York MD [address] [place], [place] [address] Assigned Musculoskeletal Provider 12/05/20 02/05/21 Roopa Almonte MD [address] [facility] [address] [place] [address] Endocrinology, Diabetes, and Metabolism 01/19/21 [place] [address] [facility] [address] [place] [address] Assigned Musculoskeletal Provider 02/06/21 09/16/21 Maryse Burton PA-C [address] [place] [address] Physician Laminated Plastics Assembler And Gluer Dermatology 04/14/21 Marquita Starkey MD [address] [facility] [address] [place] [address] Internal Medicine 05/06/21 05/06/21 Roopa Almonte MD [address] [place] [address] Hospitalist Endocrinology, Diabetes, and Metabolism 05/30/21 Griffin Joshi MD [address] [facility] [address] [place] [address] Cardiovascular Disease 07/25/21 Rina Magallon, RN Lead Storm Window Installer 07/29/21 07/11/22 Griffin Joshi MD [address] [place] [address] Assigned Heart and Vascular Provider 08/06/21 10/07/21 Roopa Almonte MD [address] [facility] [address] [place] [address] Assigned Endocrinology Provider 09/10/21 [place] [address] [facility] [place] [address] Assigned Musculoskeletal Provider 09/17/21 10/14/21 Lydia Bernstein PA-C [address] [facility] [address] [place] [address] Assigned PCP 10/01/21 10/21/21 Rosa Maria Love CHW Community Health Worker 10/06/21 [place] [address] [address] [place] [address] Assigned Musculoskeletal Provider 10/15/21 04/26/23 Paula Reza MD [address] [place] [address] Assigned PCP 10/22/21 12/23/21 Keerthi Miner APRN MECHANICAL FACILITIES TECHNICIAN [address] [place] [address] Assigned Heart and Vascular Provider 10/08/21 02/10/22 Shahida Sutton APRN MECHANICAL FACILITIES TECHNICIAN Assigned PCP 12/24/21 03/24/22 Porsha Michaels APRN MECHANICAL FACILITIES TECHNICIAN [address] [place] [address] Assigned Heart and Vascular Provider 02/11/22 05/12/22 Paula Reza MD [address] [place] [address] Assigned PCP 03/25/22 04/07/22 Shahida Sutton APRN MECHANICAL FACILITIES TECHNICIAN [address] [place] [address] Assigned PCP 04/08/22 06/30/22 Daylin Ludwig, MIKI [facility] [address] [place] [address] Cardiac Rehabilitation Therapist 05/16/23 Laurel Velasquez MD [address] [address] Assigned Heart and Vascular Provider 05/13/22 06/30/22 Daylin Ludwig, MIKI [facility] [address] [place], [place] [address] Cardiac Rehabilitation Therapist 06/08/22 06/09/23 Paula Reza MD [address] [place], [place] [address] Assigned PCP 07/01/22 07/07/22 Porsha Michaels APRN MECHANICAL FACILITIES TECHNICIAN [address] [place] [address] Assigned Heart and Vascular Provider 07/01/22 07/07/22 Laurel Velasquez MD [address] [place] [address] Assigned Heart and Vascular Provider 07/08/22 08/04/22 Shahida uStton, DUANE MECHANICAL FACILITIES TECHNICIAN Assigned PCP 07/08/22 09/08/22 Marilin Montaño, MECHANICAL FACILITIES TECHNICIAN [address] [place] [address] Assigned Heart and Vascular Provider 08/05/22 Esha Dewitt MD [address] [place] [address] 36 [place], [place] [address] Gastroenterology 09/06/22 Heather Mosquera MD [address] [place] [address] Internal Medicine 09/06/22 Paula Rzea MD [address] [place] [address] Assigned PCP 09/09/22 01/05/23 Esha Dewitt MD [address] [facility] [address] [place], [place] [address] Assigned Gastroenterology Provider 09/23/22 Valdo Escamilla PA-C [address] [facility] [address] [place] [address] Assigned Neuroscience Provider 09/30/22 Nohelia Abarca PA-C [address] [place] [address] Physician Laminated Plastics Assembler And Gluer Gastroenterology 10/03/22 Heather Mosquera MD [address] [facility] 150 [place] [address] Assigned PCP 01/06/23 Fawad York MD [address] [place], [place] [address] Assigned Musculoskeletal Provider 04/27/23 06/25/23 documented as of this encounter
--- OUTSIDE RECORDS SUMMARY | 2023-12-25 08:18 | XMS_ITS | Encounter Summary ---
Author Organization [facility] Address [address] [place] [address] Care Team Providers Care Secretary Of State Name Role Phone Mingo Aldana MD Primary Car e Provider Herman, Shahida Cummings APRN FERMENTER CHAMPAGNE Primary Care Provi ford Unavailable Herman, Shahida Cummings APRN FERMENTER CHAMPAGNE Unavailable Un available Herman, Shahida Cummings APRN FERMENTER CHAMPAGNE Unavailable Un available Carolynn Ramon RN Unavailable [phone] Augustine Callaway MD Unavailable Brady Lion MD Unavailable Un available Nima France-C Unavailable [phone] Camille Chandler PA-C Unavailable [phone] Anabela Barakat APRN FERMENTER CHAMPAGNE Unavailable Nima France-C Unavailable [phone] Basilio Morillo DO Unavailable Fawad York MD Unavailable [phone] Roopa Almonte MD Unavailable [phone] Augustine Callaway MD Unavailable Maryse Burton PA-C Unavailable Marquita Starkey MD Unavailable [phone] Roopa Almonte MD Unavailable [phone] Griffin Joshi MD Unavailable Rina Magallon RN Unavailable [phone] Paula Reza MD Primary Care Provider [phone] Griffin Joshi MD Unavailable Roopa Almonte MD Unavailable [phone] [facility] center[facility]ilio win DO Unavailable Lydia Bernstein PA-C Unavailable Rosa Maria Love Unavailable [phone] Augustine Callaway MD Unavailable Paula Reza MD Unavailable Keerthi Miner APRN FERMENTER CHAMPAGNE Unavailable Herman, Shahida Cummings APRN FERMENTER CHAMPAGNE Unavailable Un available Porsha Michaels APRN FERMENTER CHAMPAGNE Unavailable [phone] Paula Reza MD Unavailable Herman, Shahida Cummings APRN FERMENTER CHAMPAGNE Unavailable Un available Daylin Ludwig Unavailable [phone] Laurel Velasquez MD Unavailable [phone] Daylin Ludwig Unavailable [phone] Paula Reza MD Unavailable Porsha Michaels APRN FERMENTER CHAMPAGNE Unavailable [phone] Laurel Velasquez MD Unavailable [phone] Herman, Shahida Cummings APRN FERMENTER CHAMPAGNE Unavailable Un available Marilin Montaño FERMENTER CHAMPAGNE Unavailable [phone] Esha Dewitt MD Unavailable Heather Mosquera MD Unavailable Paula Reza MD Unavailable Esha Dewitt MD Unavailable [phone] Valdo Escamilla Deo PA-C Unavailable Nohelia Abarca PA-C Unavailable [phone] Heather Mosquera MD Unavailable Fawad York MD Unavailable [phone] Reason for Visit * Reason Onset Date Comments Pt. Information/instruction 07/05/2012 MRI Encounter Details Date Type Department Care Team (Late st Contact Info) Description 07/05/2012 [facility] [address], [address] [place] [address] Mingo Aldana MD [facility] [address] [place], [place] [address] Pt. Information/instruc tion (MRI) Social History Tobacco [...] imaging for his shoulder? 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 Rule Out COVID-19 01/05/2021 01/05/2021 01/06/2021 12:57 PM CDT ESBL 01/05/2021 01/05/2021 Rule Out COVID-19 06/30/2021 06/30/2021 07/01/2021 9:34 AM CDT Rule Out COVID-19 07/25/2021 07/25/2021 07/25/2021 8:02 PM CDT documented as of this encounter Care Teams Secretary Of State Relationship Specialty Start Date End Date Mingo Aldana MD PCP - General Family Practice 07/22/09 07/12/14 Shahida Sutton APRN FERMENTER CHAMPAGNE PCP - General Nurse Practitioner 08/17/14 08/04/21 Shahida Sutton APRN FERMENTER CHAMPAGNE PCP - Assigned PCP 07/12/14 05/07/18 Paula Reza MD [address] [address] PCP - General Internal Medicine 08/05/21 Shahida Sutton APRN FERMENTER CHAMPAGNE Assigned PCP 07/12/14 09/30/21 Carolynn Ramon RN Personal Advocate & Liaison (PAL) 12/17/18 08/07/21 [place] [address] [place] [address] Assigned Musculoskeletal Provider 12/26/19 08/21/20 Brady Lion MD Assigned Heart and Vascular Provider 12/26/19 08/14/20 Nima France PA-C [address] [facility] [address] [place] [address] Assigned Surgical Provider 05/19/20 08/21/20 Camille Chandler PA-C [address] [facility] [place] [address] [place] [address] Assigned Neuroscience Provider 05/19/20 09/14/20 Anabela Barakat APRN FERMENTER CHAMPAGNE [address] [place] [address] Assigned Heart and Vascular Provider 08/15/20 08/05/21 Nima France PA-C [address] [address] [place] [address] Assigned Musculoskeletal Provider 08/22/20 11/13/20 [place] [address] [facility] [place] [address] Assigned Musculoskeletal Provider 11/14/20 12/04/20 Fawad York MD [address] [place] [address] Assigned Musculoskeletal Provider 12/05/20 02/05/21 Roopa Almonte MD [address] [facility] [address] [place] [address] Endocrinology, Diabetes, and Metabolism 01/19/21 [place] [address] [facility] [address] [place] [address] Assigned Musculoskeletal Provider 02/06/21 09/16/21 Maryse Burton PA-C [address] [place] [address] Physician Press Tool Maker Dermatology 04/14/21 Marquita Starkey MD [address] [facility] [address] [place] [address] Internal Medicine 05/06/21 05/06/21 Roopa Almonte MD [address] [facility] [address] [place] [address] Hospitalist Endocrinology, Diabetes, and Metabolism 05/30/21 Griffin Joshi MD [address] [place] [address] Cardiovascular Disease 07/25/21 Rina Magallon, RN Lead Gear Milling Machine Set Up Operator 07/29/21 07/11/22 Griffin Joshi MD [address] [place] [address] Assigned Heart and Vascular Provider 08/06/21 10/07/21 Roopa Almonte MD [address] [facility] [address] [place] [address] Assigned Endocrinology Provider 09/10/21 [place] [address] [facility] [place] [address] Assigned Musculoskeletal Provider 09/17/21 10/14/21 Lydia Bernstein PA-C [address] [place] [address] Assigned PCP 10/01/21 10/21/21 Rosa Maria Love Cristina Community Health Worker 10/06/21 [place] [address] [facility] [address] [place] [address] Assigned Musculoskeletal Provider 10/15/21 04/26/23 Paula Reza MD [address] [facility] [address] [place] [address] Assigned PCP 10/22/21 12/23/21 Keerthi Miner APRN FERMENTER CHAMPAGNE [address] [place] [address] Assigned Heart and Vascular Provider 10/08/21 02/10/22 Shahida Sutton APRN FERMENTER CHAMPAGNE Assigned PCP 12/24/21 03/24/22 Porsha Michaels APRN FERMENTER CHAMPAGNE [address] [place] [address] Assigned Heart and Vascular Provider 02/11/22 05/12/22 Paula Reza MD [address] [place] [address] Assigned PCP 03/25/22 04/07/22 Shahida Sutton APRN FERMENTER CHAMPAGNE [address] [place] [address] Assigned PCP 04/08/22 06/30/22 Daylin Ludwig, MIKI [facility] [address] [place] [address] Cardiac Rehabilitation Therapist 05/16/23 Laurel Velasquez MD [address] [place] [address] Assigned Heart and Vascular Provider 05/13/22 06/30/22 Daylin Ludwig, EP [facility] [address] [place] [address] Cardiac Rehabilitation Therapist 06/08/22 06/09/23 Paula Reza MD [address] [place] [address] Assigned PCP 07/01/22 07/07/22 Porsha Michaels APRN FERMENTER CHAMPAGNE [address] [place] [address] Assigned Heart and Vascular Provider 07/01/22 07/07/22 Laurel Velasquez MD [address] [place] [address] Assigned Heart and Vascular Provider 07/08/22 08/04/22 Shahida Sutton APRN FERMENTER CHAMPAGNE Assigned PCP 07/08/22 09/08/22 Marilin Montaño, FERMENTER CHAMPAGNE [address] [place] [address] Assigned Heart and Vascular Provider 08/05/22 Esha Dewitt MD [address] [facility] [address] [place], [place] [address] MD Gastroenterology 09/06/22 Heather Mosquera MD [address] [facility] [address] [address] [facility] [place] [address] MD Internal Medicine 09/06/22 Paula Reza MD [address] [facility] [address] [place], [place] [address] Assigned PCP 09/09/22 01/05/23 Esha Dewitt MD [address] [facility] [address] [place], [place] [address] Assigned Gastroenterology Provider 09/23/22 Valdo Escamilla PA-C [address] [place] [address] Assigned Neuroscience Provider 09/30/22 Nohelia Abarca PA-C [address] [address] Physician Press Tool Maker Gastroenterology 10/03/22 Heather Mosquera MD [address] [facility] 150 [place] [address] Assigned PCP 01/06/23 Fawad York MD [address] [place] [address] Assigned Musculoskeletal Provider 04/27/23 06/25/23 documented as of this encounter
--- OUTSIDE RECORDS SUMMARY | 2023-12-25 08:19 | XMS_ITS | Encounter Summary ---
Author Organization [facility] Address [address] [place] [address] Care Team Providers Care Duck Farmer Name Role Phone Mingo Aldana MD Primary Car e Provider Herman, Shahida Cummings APRN SLIVER LAP TENDER Primary Care Provi ford Unavailable Herman, Shahida Cummings APRN SLIVER LAP TENDER Unavailable Un available Herman, Shahida Cummings APRN SLIVER LAP TENDER Unavailable Un available Carolynn Ramon RN Unavailable [phone] Augustine Callaway MD Unavailable Brady Lion MD Unavailable Un available Nima France-C Unavailable [phone] Camille Chandler PA-C Unavailable [phone] Anabela Barakat APRN SLIVER LAP TENDER Unavailable Nima France-C Unavailable [phone] Basilio Morillo DO Unavailable [phone] Fawad York MD Unavailable [phone] Roopa Almonte MD Unavailable [phone] Augustine Callaway MD Unavailable Maryse Burton PA-C Unavailable Marquita Starkey MD Unavailable [phone] Roopa Almonte MD Unavailable [phone] Griffin Joshi MD Unavailable Rina Magallon RN Unavailable [phone] Paula Reza MD Primary Care Provider [phone] Griffin Joshi MD Unavailable Roopa Almonte MD Unavailable [phone] [facility] unitBasilio win DO Unavailable Lydia Bernstein PA-C Unavailable Rosa Maria Love Unavailable [phone] Augustine Callaway MD Unavailable Paula Reza MD Unavailable Keerthi Miner APRN SLIVER LAP TENDER Unavailable Herman, Shahida Cummings APRN SLIVER LAP TENDER Unavailable Un available Porsha Michaels APRN SLIVER LAP TENDER Unavailable [phone] Paula Reza MD Unavailable Herman, Shahida Cummings APRN SLIVER LAP TENDER Unavailable Un available Daylin Ludwig Unavailable [phone] Laurel Velasquez MD Unavailable [phone] Daylin Ludwig Unavailable [phone] Paula Reza MD Unavailable Porsha Michaels APRN SLIVER LAP TENDER Unavailable [phone] Laurel Velasquez MD Unavailable [phone] Herman, Shahida Cummings APRN SLIVER LAP TENDER Unavailable Un available Marilin Montaño SLIVER LAP TENDER Unavailable [phone] Esha Dewitt MD Unavailable [phone] Heather Mosquera MD Unavailable [phone] Paula Reza MD Unavailable Esha Dewitt MD Unavailable [phone] Valdo Escamilla PA-C Unavailable Nohelia Abarca PA-C Unavailable [phone] Heather Mosquera MD Unavailable Fawad York MD Unavailable Encounter Details Date Type Department Care Team (Late st Contact Info) Description 06/06/2010 [facility] [id number] [place] [id number] [place] [id number] [place] [address] Social History Tobacco Use Types Packs/Day [...] COVID-19 02/15/2020 02/15/2020 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 Rule Out COVID-19 01/05/2021 01/05/2021 01/06/2021 12:57 PM CDT ESBL 01/05/2021 01/05/2021 Rule Out COVID-19 06/30/2021 06/30/2021 07/01/2021 9:34 AM CDT Rule Out COVID-19 07/25/2021 07/25/2021 07/25/2021 8:02 PM CDT documented as of this encounter Care Teams Duck Farmer Relationship Specialty Start Date End Date Mingo Aldana MD PCP - General Family Practice 07/22/09 07/12/14 Shahida Sutton APRN SLIVER LAP TENDER PCP - General Nurse Practitioner 08/17/14 08/04/21 Shahida Sutton APRN SLIVER LAP TENDER PCP - Assigned PCP 07/12/14 05/07/18 Paula Reza MD [address] [place], [place] [address] PCP - General Internal Medicine 08/05/21 Shahida Sutton APRN SLIVER LAP TENDER Assigned PCP 07/12/14 09/30/21 Carolynn Ramon, KASIE Personal Advocate & Liaison (PAL) 12/17/18 08/07/21 [place] [address] [place], [place] [address] Assigned Musculoskeletal Provider 12/26/19 08/21/20 Brady Lion MD Assigned Heart and Vascular Provider 12/26/19 08/14/20 Nima France PA-C [address] [place] [id number] Assigned Surgical Provider 05/19/20 08/21/20 Camille Chandler PA-C [address] [place] [address] Assigned Neuroscience Provider 05/19/20 09/14/20 Anabela Barakat APRN CNP [address] [place] [address] Assigned Heart and Vascular Provider 08/15/20 08/05/21 Nima France PA-C [address] [facility] 450 [place] [address] Assigned Musculoskeletal Provider 08/22/20 11/13/20 [place] [address] [place] [address] Assigned Musculoskeletal Provider 11/14/20 12/04/20 Fawad York MD 909 [place] [address] Assigned Musculoskeletal Provider 12/05/20 02/05/21 Roopa Almonte MD [address] [facility] 200 [place] [address] Endocrinology, Diabetes, and Metabolism 01/19/21 [place] [address] [facility] [address] [place] [address] Assigned Musculoskeletal Provider 02/06/21 09/16/21 Maryse Burton PA-C [address] [place] [address] Physician Classifications Officer Cc/Cm Dermatology 04/14/21 Marquita Starkey MD [address] [facility] 200 [place] [address] Internal Medicine 05/06/21 05/06/21 Roopa Almonte MD [address] [facility] 200 [place] [address] Hospitalist Endocrinology, Diabetes, and Metabolism 05/30/21 Griffin Joshi MD [address] [place] [address] Cardiovascular Disease 07/25/21 Rina Magallon, RN Lead Aerospace Mechanic 07/29/21 07/11/22 Griffin Joshi MD [address] [place] [address] Assigned Heart and Vascular Provider 08/06/21 10/07/21 Roopa Almonte MD [address] [facility] [address] [place], [place] [address] Assigned Endocrinology Provider 09/10/21 [place] [address] [facility] [place] [address] Assigned Musculoskeletal Provider 09/17/21 10/14/21 Lydia Bernstein PA-C [address] [place] [address] Assigned PCP 10/01/21 10/21/21 Rosa Maria Love CHW Community Health Worker 10/06/21 [place] [address] [place] [address] Assigned Musculoskeletal Provider 10/15/21 04/26/23 Paula Reza MD [address] [place] [address] Assigned PCP 10/22/21 12/23/21 Keerthi Miner APRN SLIVER LAP TENDER [address] [place] [address] Assigned Heart and Vascular Provider 10/08/21 02/10/22 Shahida Sutton APRN SLIVER LAP TENDER Assigned PCP 12/24/21 03/24/22 Porsha Michaels APRN SLIVER LAP TENDER [address] [place] [address] Assigned Heart and Vascular Provider 02/11/22 05/12/22 Paula Reza MD [address] [place] [address] Assigned PCP 03/25/22 04/07/22 Shahida Sutton APRN SLIVER LAP TENDER [address] [place] [address] Assigned PCP 04/08/22 06/30/22 Daylin Ludwig EP [facility] [address] [place] [address] Cardiac Rehabilitation Therapist 05/16/23 Laurel Velasquez MD [address] [place] [address] Assigned Heart and Vascular Provider 05/13/22 06/30/22 Daylin Ludwig EP [facility] [address] [place] [address] Cardiac Rehabilitation Therapist 06/08/22 06/09/23 Paula Reza MD [address] [facility] [address] [place], [place] [address] Assigned PCP 07/01/22 07/07/22 Porsha Michaels APRN SLIVER LAP TENDER [address] [place] [address] Assigned Heart and Vascular Provider 07/01/22 07/07/22 Laurel Velasquez MD [address] [place] [address] Assigned Heart and Vascular Provider 07/08/22 08/04/22 Shahida Sutton APRN SLIVER LAP TENDER Assigned PCP 07/08/22 09/08/22 Marilin Montaño, SLIVER LAP TENDER [address] [place] [address] Assigned Heart and Vascular Provider 08/05/22 Esha Dewitt MD 420 [facility] [address] [place], [place] [address] Gastroenterology 09/06/22 Heather Mosquera MD [address] [place] [address] Internal Medicine 09/06/22 Paula Reza MD [address] [place] [address] Assigned PCP 09/09/22 01/05/23 Esha Dewitt MD 420 [facility] 36 [place], [place] [address] Assigned Gastroenterology Provider 09/23/22 Valdo Escamilla PA-C [address] [facility] [address] [place], [place] [address] Assigned Neuroscience Provider 09/30/22 Nohelia Abarca PA-C [address] [place], [place] [address] Physician Classifications Officer Cc/Cm Gastroenterology 10/03/22 Heather Mosquera MD [address] [place], [place] [address] Assigned PCP 01/06/23 Fawad York MD [address] [place], [place] [address] Assigned Musculoskeletal Provider 04/27/23 06/25/23 documented as of this encounter
--- OUTSIDE RECORDS SUMMARY | 2023-12-25 08:19 | XMS_ITS | Encounter Summary ---
Author Organization [facility] Address [address] [place] [address] Care Team Providers Care Payroll And Benefits Coordinator Name Role Phone Mingo Aldana MD Primary Car e Provider Herman, Shahida Cummings APRN SCANNING CLERK Primary Care Provi ford Unavailable Herman, Shahida Cummings APRN SCANNING CLERK Unavailable Un available Herman, Shahida Cummings APRN SCANNING CLERK Unavailable Un available Carolynn Ramon RN Unavailable [phone] Augustine Callaway MD Unavailable Brady Lion MD Unavailable Un available Nima France-C Unavailable [phone] Camille Chandler PA-C Unavailable [phone] Anabela Barakat APRN SCANNING CLERK Unavailable Nima France-C Unavailable [phone] Basilio Morillo DO Unavailable Fawad York MD Unavailable [phone] Roopa Almonte MD Unavailable [phone] Augustine Callaway MD Unavailable Maryse Burton PA-C Unavailable Marquita Starkey MD Unavailable [phone] Roopa Almonte MD Unavailable [phone] Griffin Joshi MD Unavailable Rina Magallon RN Unavailable [phone] Paula Reza MD Primary Care Provider [phone] Griffin Joshi MD Unavailable Roopa Almonte MD Unavailable [phone] [facility] DO Unavailable Lydia Bernstein PA-C Unavailable Rosa Maria Love Unavailable [phone] Augustine Callaway MD Unavailable Paula Reza MD Unavailable Keerthi Miner APRN SCANNING CLERK Unavailable Herman, Shahida Cummings APRN SCANNING CLERK Unavailable Un available Porsha Michaels APRN SCANNING CLERK Unavailable [phone] Paula Reza MD Unavailable Herman, Shahida Cummings APRN SCANNING CLERK Unavailable Un available Daylin Ludwig Unavailable [phone] Laurel Velasquez MD Unavailable [phone] Daylin Ludwig Unavailable [phone] Paula Reza MD Unavailable Porsha Michaels APRN SCANNING CLERK Unavailable [phone] Laurel Velasquez MD Unavailable [phone] Herman, Shahida Cummings APRN SCANNING CLERK Unavailable Un available Marilin Montaño SCANNING CLERK Unavailable [phone] Esha Dewitt MD Unavailable [phone] Heather Mosquera MD Unavailable Paula Reza MD Unavailable Esha Dewitt MD Unavailable [phone] Valdo Escamilla PA-C Unavailable Nohelia Abarca PA-C Unavailable [phone] Heather Mosquera MD Unavailable [phone] Fawad York MD Unavailable Encounter Details Date Type Department Care Team (Late st Contact Info) Description 06/09/2010 [facility] [id number] [place] [id number] [place] [id number] [place] [id number] Social History Tobacco Use Types Packs/Day [...] Out COVID-19 02/15/2020 02/15/2020 02/16/2020 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 Rule Out COVID-19 01/05/2021 01/05/2021 01/06/2021 12:57 PM CDT ESBL 01/05/2021 01/05/2021 Rule Out COVID-19 06/30/2021 06/30/2021 07/01/2021 9:34 AM CDT Rule Out COVID-19 07/25/2021 07/25/2021 07/25/2021 8:02 PM CDT documented as of this encounter Care Teams Payroll And Benefits Coordinator Relationship Specialty Start Date End Date Mingo Aldana MD PCP - General Family Practice 07/22/09 07/12/14 Shahida Sutton APRN SCANNING CLERK PCP - General Nurse Practitioner 08/17/14 08/04/21 Shahida Sutton APRN SCANNING CLERK PCP - Assigned PCP 07/12/14 05/07/18 Paula Reza MD [address] [place], [place] [id number] PCP - General Internal Medicine 08/05/21 Shahida Sutton APRN SCANNING CLERK Assigned PCP 07/12/14 09/30/21 Carolynn Ramon, KASIE Personal Advocate & Liaison (PAL) 12/17/18 08/07/21 [place] [address] [place], [place] [address] Assigned Musculoskeletal Provider 12/26/19 08/21/20 Brady Lion MD Assigned Heart and Vascular Provider 12/26/19 08/14/20 Nima France PA-C [address] [place] [id number] Assigned Surgical Provider 05/19/20 08/21/20 Camille Chandler PA-C [address] [place] [id number] Assigned Neuroscience Provider 05/19/20 09/14/20 Anabela Barakat APRN CNP [address] [place] [address] Assigned Heart and Vascular Provider 08/15/20 08/05/21 Nima France PA-C 6545 [facility] 450 [place] [address] Assigned Musculoskeletal Provider 08/22/20 11/13/20 [place] [address] [place] [address] Assigned Musculoskeletal Provider 11/14/20 12/04/20 Fawad York MD [address] [place] [address] Assigned Musculoskeletal Provider 12/05/20 02/05/21 Roopa Almonte MD [address] [facility] [facility] [address] [place] [address] Endocrinology, Diabetes, and Metabolism 01/19/21 [place] [address] [facility] [address] [place] [address] Assigned Musculoskeletal Provider 02/06/21 09/16/21 Maryse Burton PA-C [address] [place] [address] Physician Job Cost Estimator Dermatology 04/14/21 Marqutia Starkey MD [address] [facility] [address] [place] [address] Internal Medicine 05/06/21 05/06/21 Roopa Almonte MD [address] [facility] [facility] [address] [place] [address] Hospitalist Endocrinology, Diabetes, and Metabolism 05/30/21 Griffin Joshi MD [address] [place] [address] Cardiovascular Disease 07/25/21 Rina Magallon, RN Lead Sanitarian Inspector 07/29/21 07/11/22 Griffin Joshi MD [address] [place] [address] Assigned Heart and Vascular Provider 08/06/21 10/07/21 Roopa Almonte MD [address] [facility] 200 [place], [place] [address] Assigned Endocrinology Provider 09/10/21 [place] [address] [facility] [place] [address] Assigned Musculoskeletal Provider 09/17/21 10/14/21 Lydia Bernstein PA-C [address] [place] [address] Assigned PCP 10/01/21 10/21/21 Rosa Maria Love CHW Community Health Worker 10/06/21 [place] [address] [place] [address] Assigned Musculoskeletal Provider 10/15/21 04/26/23 Paula Reza MD [address] [place] [address] Assigned PCP 10/22/21 12/23/21 Keerthi Miner APRN SCANNING CLERK [address] [place] [id number] Assigned Heart and Vascular Provider 10/08/21 02/10/22 Shahida Sutton APRN SCANNING CLERK Assigned PCP 12/24/21 03/24/22 Porsha Michaels APRN SCANNING CLERK [address] [place] [address] Assigned Heart and Vascular Provider 02/11/22 05/12/22 Paula Reza MD [address] [place] [address] Assigned PCP 03/25/22 04/07/22 Shahida Sutton APRN SCANNING CLERK [address] [place] [address] Assigned PCP 04/08/22 06/30/22 Daylin Ludwig EP [facility] [address] [place] [address] Cardiac Rehabilitation Therapist 05/16/23 Laurel Velasquez MD [address] [place] [address] Assigned Heart and Vascular Provider 05/13/22 06/30/22 Daylin Ludwig EP [facility] [address] [place] [address] Cardiac Rehabilitation Therapist 06/08/22 06/09/23 Paula Reza MD [address] [facility] [address] [place], [place] [address] Assigned PCP 07/01/22 07/07/22 Porsha Michaels APRN SCANNING CLERK [address] [place] [address] Assigned Heart and Vascular Provider 07/01/22 07/07/22 Laurel Velasquez MD [address] [place] [address] Assigned Heart and Vascular Provider 07/08/22 08/04/22 Shahida Sutton APRN SCANNING CLERK Assigned PCP 07/08/22 09/08/22 Marilin Montaño, SCANNING CLERK [address] [place] [address] Assigned Heart and Vascular Provider 08/05/22 Esha Dewitt MD [address] [facility] 36 [place], [place] [address] Gastroenterology 09/06/22 Heather Mosquera MD [address] [place] [address] Internal Medicine 09/06/22 Paula Reza MD [address] [place] [address] Assigned PCP 09/09/22 01/05/23 Esha Dewitt MD [address] [facility] 36 [place], [place] [address] Assigned Gastroenterology Provider 09/23/22 Valdo Escamilla PA-C [address] [facility] [address] [place], [place] [address] Assigned Neuroscience Provider 09/30/22 Nohelia Abarca PA-C [address] [place], [place] [address] Physician Job Cost Estimator Gastroenterology 10/03/22 Heather Mosquera MD [address] [place], [place] [address] Assigned PCP 01/06/23 Fawad [place] MD [address] [place], [place] [address] Assigned Musculoskeletal Provider 04/27/23 06/25/23 documented as of this encounter
--- OUTSIDE RECORDS SUMMARY | 2023-12-25 08:19 | XMS_ITS | Encounter Summary ---
Author Organization [place] Address [address] [place] [address] Care Team Providers Care Insurance Claims Clerk Name Role Phone Mingo Aldana MD Primary Car e Provider Herman, Shahida Cummings APRN WHEEL ALIGNMENT MECHANIC Primary Care Provi ford Unavailable Herman, Shahida Cummings APRN WHEEL ALIGNMENT MECHANIC Unavailable Un available Herman, Shahida Cummings APRN WHEEL ALIGNMENT MECHANIC Unavailable Un available Carolynn Ramon RN Unavailable [phone] Augustine Callaway MD Unavailable Brady Lion MD Unavailable Un available Nima France-C Unavailable [phone] Camille Chandler PA-C Unavailable [phone] Anabela Barakat APRN WHEEL ALIGNMENT MECHANIC Unavailable Nima France-C Unavailable [phone] Basilio Morillo DO Unavailable Fawad York MD Unavailable [phone] Roopa Almonte MD Unavailable [phone] Augustine Callaway MD Unavailable Maryse Burton PA-C Unavailable Marquita Starkey MD Unavailable [phone] Roopa Almonte MD Unavailable [phone] Griffin Joshi MD Unavailable Rina Magallon RN Unavailable [phone] Paula Reza MD Primary Care Provider [phone] Griffin Joshi MD Unavailable Roopa Almonte MD Unavailable [phone] [facility] win DO Unavailable Lydia Bernstein PA-C Unavailable Rosa Maria Love Unavailable [phone] Augustine Callaway MD Unavailable Paula Reza MD Unavailable Keerthi Miner APRN WHEEL ALIGNMENT MECHANIC Unavailable Herman, Shahida Cummings APRN WHEEL ALIGNMENT MECHANIC Unavailable Un available Porsha Michaels APRN WHEEL ALIGNMENT MECHANIC Unavailable [phone] Paula Reza MD Unavailable Herman, Shahida Cummings APRN WHEEL ALIGNMENT MECHANIC Unavailable Un available Daylin Ludwig Unavailable [phone] Laurel Velasquez MD Unavailable [phone] Daylin Ludwig Unavailable [phone] Paula Reza MD Unavailable Porsha Michaels APRN WHEEL ALIGNMENT MECHANIC Unavailable [phone] Laurel Velasquez MD Unavailable [phone] Herman, Shahida Cummings APRN WHEEL ALIGNMENT MECHANIC Unavailable Un available Marilin Montaño WHEEL ALIGNMENT MECHANIC Unavailable [phone] Esha Dewitt MD Unavailable [phone] Heather Mosquera MD Unavailable Paula Reza MD Unavailable Esha Dewitt MD Unavailable [phone] Valdo Escamilla PA-C Unavailable Nohelia Abarca PA-C Unavailable [phone] Heather Mosquera MD Unavailable Fawad York MD Unavailable [phone] Reason for Visit * Reason Onset Date Comments Refill Request 10/19/2009 Encounter Details Date Type Department Care Team (Late st Contact Info) Description 10/19/2009 MyC Refill [address] [phone] Mingo Aldana MD [facility] [address] [place] [address] Refill Request Social History Tobacco [...] Out COVID-19 02/15/2020 02/15/2020 02/16/2020 2:32 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 Rule Out COVID-19 01/05/2021 01/05/2021 01/06/2021 12:57 PM CDT ESBL 01/05/2021 01/05/2021 Rule Out COVID-19 06/30/2021 06/30/2021 07/01/2021 9:34 AM CDT Rule Out COVID-19 07/25/2021 07/25/2021 07/25/2021 8:02 PM CDT documented as of this encounter Care Teams Insurance Claims Clerk Relationship Specialty Start Date End Date Mingo Aldana MD PCP - General Family Practice 07/22/09 07/12/14 Shahida Sutton APRN WHEEL ALIGNMENT MECHANIC PCP - General Nurse Practitioner 08/17/14 08/04/21 Shahida Sutton APRN WHEEL ALIGNMENT MECHANIC PCP - Assigned PCP 07/12/14 05/07/18 Paula Reza MD [address] [place], [place] [address] PCP - General Internal Medicine 08/05/21 Shahida Sutton APRN WHEEL ALIGNMENT MECHANIC Assigned PCP 07/12/14 09/30/21 Carolynn Ramon, KASIE Personal Advocate & Liaison (PAL) 12/17/18 08/07/21 [place] [address] [place] [address] Assigned Musculoskeletal Provider 12/26/19 08/21/20 Brady Lion MD Assigned Heart and Vascular Provider 12/26/19 08/14/20 Nima France PA-C [address] [place] [address] Assigned Surgical Provider 05/19/20 08/21/20 Camille Chandler PA-C 65[address] [facility] [address] [place] [address] Assigned Neuroscience Provider 05/19/20 09/14/20 Anabela Barakat APRN CNP [address]00 [place] [address] Assigned Heart and Vascular Provider 08/15/20 08/05/21 Nima France PA-C 6545 [facility] 450 [place] [address] Assigned Musculoskeletal Provider 08/22/20 11/13/20 [place] [address] [place], [place] [address] Assigned Musculoskeletal Provider 11/14/20 12/04/20 Fawad York MD [address] [place], [place] [address] Assigned Musculoskeletal Provider 12/05/20 02/05/21 Roopa Almonte MD [address] [facility] 200 [place] [address] Endocrinology, Diabetes, and Metabolism 01/19/21 [place] [address] [facility] 300 [place] [address] Assigned Musculoskeletal Provider 02/06/21 09/16/21 Maryse Burton PA-C [address] [place] [address] Physician Sales And Service Officer Dermatology 04/14/21 Marquita Starkey MD [address] [facility] 200 [place] [address] Internal Medicine 05/06/21 05/06/21 Roopa Almonte MD [address] [facility] 200 [place] [address] Hospitalist Endocrinology, Diabetes, and Metabolism 05/30/21 Griffin Joshi MD [address] [place] [address] Cardiovascular Disease 07/25/21 Rina Magallon, RN Lead Butcher Scullion 07/29/21 07/11/22 Griffin Joshi MD [address] [place] [address] Assigned Heart and Vascular Provider 08/06/21 10/07/21 Roopa Almonte MD [address] [facility] 200 [place] [address] Assigned Endocrinology Provider 09/10/21 [place] [address] [facility] [place] [address] Assigned Musculoskeletal Provider 09/17/21 10/14/21 Lydia Bernstein PA-C [address] [place] [address] Assigned PCP 10/01/21 10/21/21 Rosa Maria Love, [facility] Community Health Worker 10/06/21 [place] [address] [place] [address] Assigned Musculoskeletal Provider 10/15/21 04/26/23 Paula Reza MD [address] [place] [address] Assigned PCP 10/22/21 12/23/21 Keerthi Miner APRN WHEEL ALIGNMENT MECHANIC [address] [place] [address] Assigned Heart and Vascular Provider 10/08/21 02/10/22 Shahida Sutton APRN WHEEL ALIGNMENT MECHANIC Assigned PCP 12/24/21 03/24/22 Porsha Michaels APRN WHEEL ALIGNMENT MECHANIC [address] [place] [address] Assigned Heart and Vascular Provider 02/11/22 05/12/22 Paula Reza MD [address] [facility] [address] [place] [address] Assigned PCP 03/25/22 04/07/22 Shahida Sutton APRN WHEEL ALIGNMENT MECHANIC [address] [address] Assigned PCP 04/08/22 06/30/22 Daylin Ludwig EP [facility] [address] [place] [address] Cardiac Rehabilitation Therapist 05/16/23 Laurel Velasquez MD [address] [place] [place] [address] Assigned Heart and Vascular Provider 05/13/22 06/30/22 Daylin Ludwig EP [facility] [address] [place] [place] [address] Cardiac Rehabilitation Therapist 06/08/22 06/09/23 Paula Reza MD [address] [facility] [address] [place] [address] Assigned PCP 07/01/22 07/07/22 Porsha Michaels APRN WHEEL ALIGNMENT MECHANIC [address] [place] [address] Assigned Heart and Vascular Provider 07/01/22 07/07/22 Laurel Velasquez MD [address] [place] [address] Assigned Heart and Vascular Provider 07/08/22 08/04/22 Shahida Sutton APRN WHEEL ALIGNMENT MECHANIC Assigned PCP 07/08/22 09/08/22 Marilin Montaño, WHEEL ALIGNMENT MECHANIC [address] [place] [address] Assigned Heart and Vascular Provider 08/05/22 Esha Dewitt MD [address] [place] [address] 36 [place], [place] [address] Gastroenterology 09/06/22 Heather Mosquera MD [address] [place] [address] Internal Medicine 09/06/22 Paula Reza MD [address] [facility] 200 [place] [address] Assigned PCP 09/09/22 01/05/23 Esha Dewitt MD [address] [facility] 36 [place] [address] Assigned Gastroenterology Provider 09/23/22 Valdo Escamilla PA-C [address] [facility] [address] [place] [address] Assigned Neuroscience Provider 09/30/22 Nohelia Abarca PA-C [address]50 [place] [address] Physician Sales And Service Officer Gastroenterology 10/03/22 Heather Mosquera MD [address] [place] [address] Assigned PCP 01/06/23 Fawad [place] MD [address] [place], [place] [address] Assigned Musculoskeletal Provider 04/27/23 06/25/23 documented as of this encounter
--- OUTSIDE RECORDS SUMMARY | 2023-12-25 08:19 | XMS_ITS | Encounter Summary ---
Author Organization [facility] Address [address] [place] [address] Care Team Providers Care Disaster Recovery Consultant Name Role Phone Mingo Aldana MD Primary Car e Provider Herman, Shahida Cummings APRN SHEET PILE DRIVER OPERATOR Primary Care Provi ford Unavailable Herman, Shahida Cummings APRN SHEET PILE DRIVER OPERATOR Unavailable Un available Herman, Shahida Cummings APRN SHEET PILE DRIVER OPERATOR Unavailable Un available Carolynn Ramon RN Unavailable [phone] Augustine Callaway MD Unavailable Brady Lion MD Unavailable Un available Nima France-C Unavailable [phone] Camille Chandler PA-C Unavailable [phone] Anabela Barakat APRN SHEET PILE DRIVER OPERATOR Unavailable Nima France-C Unavailable [phone] Basilio Morillo DO Unavailable Fawad York MD Unavailable [phone] Roopa Almonte MD Unavailable [phone] Augustine Callaway MD Unavailable Maryse Burton PA-C Unavailable Marquita Starkey MD Unavailable [phone] Roopa Almonte MD Unavailable [phone] Griffin Joshi MD Unavailable Rina Magallon RN Unavailable [phone] Paula Reza MD Primary Care Provider [phone] Griffin Joshi MD Unavailable Roopa Almonte MD Unavailable [phone] [facility] DO Unavailable Lydia Bernstein PA-C Unavailable Rosa Maria Love Unavailable [phone] Augustine Callaway MD Unavailable Paula Reza MD Unavailable Keerthi Miner APRN SHEET PILE DRIVER OPERATOR Unavailable Herman, Shahida Cummings APRN SHEET PILE DRIVER OPERATOR Unavailable Un available Porsha Michaels APRN SHEET PILE DRIVER OPERATOR Unavailable [phone] Paula Reza MD Unavailable Herman, Shahida Cummings APRN SHEET PILE DRIVER OPERATOR Unavailable Un available Daylin Ludwgi Unavailable [phone] Laurel Velasquez MD Unavailable [phone] Daylin Ludwig Unavailable [phone] Paula Reza MD Unavailable Porsha Michaels APRN SHEET PILE DRIVER OPERATOR Unavailable [phone] Laurel Velasquez MD Unavailable [phone] Herman, Shahida Cummings APRN SHEET PILE DRIVER OPERATOR Unavailable Un available Marilin Montaño SHEET PILE DRIVER OPERATOR Unavailable [phone] Esha Dewitt MD Unavailable [phone] Heather Mosquera MD Unavailable Paula Reza MD Unavailable Esha Dewitt MD Unavailable [phone] Valdo Escamilla Deo PA-C Unavailable Rima iWlfredosima PA-C Unavailable [phone] Heather Mosquera MD Unavailable Fawad York MD Unavailable [phone] Reason for Visit * Reason Onset Date Comments Refill Request 03/18/2010 Vicodin Encounter Details Date Type Department Care Team (Late st Contact Info) Description 03/18/2010 My[facility] [address] [address] Mingo Aldana MD [facility] [address] [place] [address] Refill Request (Vicodin) Social History [...] Milagros Denton RN - 03/18/2010 2:19 PM TAKER OFF DRYING KILN Dr. Mingo Aldana: Please see Pt's request below. As stated, he has been taking Vicodin 3x per day some days. Last refill was on 02/21/2010 for a max dose of 2 tablets per day. Thank you, Milagros Denton RN R OFF DRYING KILN * Telephone Encounter - Milagros Denton RN - 03/18/2010 2:14 PM CSTMessage from [facility]: Mauro Jared Terrell would like a refill of the following medications: hydrocodone-acetaminophen (NORCO) 10-325 MG per tablet [Mingo Aldana MD] Preferred pharmacy: [facility] Comment: Doctor,Per my Psych I have begun [...] my supply is low. Any questions, concerns [phone] R OFF DRYING KILN documented in this encounter Plan of Treatment Not on file documented as of this encounter Visit Diagnoses Diagnosis Lumbago- Primary documented in this encounter Additional Health Concerns Infection Onset Date Last Indicated Resolved Time Rule Out COVID-19 02/15/2020 02/15/2020 02/16/2020 2:32 PM TAKER OFF DRYING KILN Rule Out COVID-19 01/05/2021 01/05/2021 01/06/2021 12:57 PM CDT ESBL 01/05/2021 01/05/2021 Rule Out COVID-19 06/30/2021 06/30/2021 07/01/2021 9:34 AM CDT Rule Out COVID-19 07/25/2021 07/25/2021 07/25/2021 8:02 PM CDT documented as of this encounter Care Teams Disaster Recovery Consultant Relationship Specialty Start Date End Date Mingo Aldana MD PCP - General Family Practice 07/22/09 07/12/14 Shahida Sutton APRN SHEET PILE DRIVER OPERATOR PCP - General Nurse Practitioner 08/17/14 08/04/21 Shahida Sutton APRN SHEET PILE DRIVER OPERATOR PCP - Assigned PCP 07/12/14 05/07/18 Paula Reza MD [address] [facility] [address] [place] [address] PCP - General Internal Medicine 08/05/21 Shahida Sutton APRN SHEET PILE DRIVER OPERATOR Assigned PCP 07/12/14 09/30/21 Carolynn Ramon, KASIE Personal Advocate & Liaison (PAL) 12/17/18 08/07/21 [place] [address] [place] [address] Assigned Musculoskeletal Provider 12/26/19 08/21/20 Brady Lion MD Assigned Heart and Vascular Provider 12/26/19 08/14/20 Nima France PA-C [address] [facility] [address] [place] [address] Assigned Surgical Provider 05/19/20 08/21/20 Camille Chandler PA-C [address] [facility] [address] [place] [address] Assigned Neuroscience Provider 05/19/20 09/14/20 Anabela Barakat APRN SHEET PILE DRIVER OPERATOR [address] [place] [address] Assigned Heart and Vascular Provider 08/15/20 08/05/21 iNma France PA-C [address] [place] [address] Assigned Musculoskeletal Provider 08/22/20 11/13/20 [place] [address] [facility] [place] [address] Assigned Musculoskeletal Provider 11/14/20 12/04/20 Fawad York MD [address] [place], [place] [address] Assigned Musculoskeletal Provider 12/05/20 02/05/21 Roopa Almonte MD [address] [facility] [address] [place] [address] Endocrinology, Diabetes, and Metabolism 01/19/21 [place] [address] [facility] [address] [place] [address] Assigned Musculoskeletal Provider 02/06/21 09/16/21 Maryse Burton PA-C [address] [place] [address] Physician Top Lifter Dermatology 04/14/21 Marquita Starkey MD [address] [place] [address] Internal Medicine 05/06/21 05/06/21 Roopa Almonte MD [address] [place] [address] Hospitalist Endocrinology, Diabetes, and Metabolism 05/30/21 Griffin Joshi MD [address] [place] [address] Cardiovascular Disease 07/25/21 Rina Magallon, RN Lead Twisting Frame Operator 07/29/21 07/11/22 Griffin Joshi MD [address] [place] [address] Assigned Heart and Vascular Provider 08/06/21 10/07/21 Roopa Almonte MD [address] [place] [address] 200 [place], [place] [address] Assigned Endocrinology Provider 09/10/21 [place] [address] [facility] [place] [address] Assigned Musculoskeletal Provider 09/17/21 10/14/21 Lydia Bernstein PA-C [address] [place] [address] Assigned PCP 10/01/21 10/21/21 Rosa Maria Love CHW Community Health Worker 10/06/21 [place] [address] [facility] [address] [place] [address] Assigned Musculoskeletal Provider 10/15/21 04/26/23 Paula Reza MD [address] [facility] [address] [place] [address] Assigned PCP 10/22/21 12/23/21 Keerthi Miner APRN SHEET PILE DRIVER OPERATOR [address] [place] [address] Assigned Heart and Vascular Provider 10/08/21 02/10/22 Shahida Sutton APRN SHEET PILE DRIVER OPERATOR Assigned PCP 12/24/21 03/24/22 Porsha Michaels VACUUM TECHNICIAN SHEET PILE DRIVER OPERATOR [address] [place] [address] Assigned Heart and Vascular Provider 02/11/22 05/12/22 Paula Reza MD [address] [facility] [address] [place] [address] Assigned PCP 03/25/22 04/07/22 Shahida Sutton APRN SHEET PILE DRIVER OPERATOR [address] [place] [address] Assigned PCP 04/08/22 06/30/22 Daylin Ludwig EP [facility] [address] [place] [address] Cardiac Rehabilitation Therapist 05/16/23 Laurel Velasquez MD [address] [place] [address] Assigned Heart and Vascular Provider 05/13/22 06/30/22 Daylin Ludwig EP [facility] [address] [place] [address] Cardiac Rehabilitation Therapist 06/08/22 06/09/23 Paula Reza MD [address] [place], [place] [address] Assigned PCP 07/01/22 07/07/22 Porsha Michaels APRN SHEET PILE DRIVER OPERATOR [address] [place] [address] Assigned Heart and Vascular Provider 07/01/22 07/07/22 Laurel Velasquez MD [address] [place], [place] [address] Assigned Heart and Vascular Provider 07/08/22 08/04/22 Shahida Sutton APRN SHEET PILE DRIVER OPERATOR Assigned PCP 07/08/22 09/08/22 Marilin Montaño, SHEET PILE DRIVER OPERATOR [address] [place] [address] Assigned Heart and Vascular Provider 08/05/22 Esha Dewitt MD [address] [place] [address] Gastroenterology 09/06/22 Heather Mosquera MD [address] [place] [address] Internal Medicine 09/06/22 Paula Reza MD [address] [place], [place] [address] Assigned PCP 09/09/22 01/05/23 Esha Dewitt MD [address] [place] [address] Assigned Gastroenterology Provider 09/23/22 Valdo Escamilla PA-C [address] [facility] [address] [place] [address] Assigned Neuroscience Provider 09/30/22 Nohelia Abarca PA-C [address] [place], [place] [address] Physician Top Lifter Gastroenterology 10/03/22 Heather Mosquera MD [address]45 [facility] 150 [place] [address] Assigned PCP 01/06/23 Fawad York MD [address] [place], [place] [address] Assigned Musculoskeletal Provider 04/27/23 06/25/23 documented as of this encounter
--- OUTSIDE RECORDS SUMMARY | 2023-12-25 08:19 | XMS_ITS | Encounter Summary ---
Author Organization [facility] Address [address] [place] [address] Care Team Providers Care Machine Cage Maker Name Role Phone Mingo Aldana MD Primary Car e Provider Herman, Shahida Cummings APRN ELECTRIC MOTOR REPAIR SUPERVISOR Primary Care Provi ford Unavailable Herman, Shahida Cummings APRN ELECTRIC MOTOR REPAIR SUPERVISOR Unavailable Un available Herman, Shahida Cummings APRN ELECTRIC MOTOR REPAIR SUPERVISOR Unavailable Un available Carolynn Ramon RN Unavailable [phone] Augustine Callaway MD Unavailable Brady Lion MD Unavailable Un available Nima France-C Unavailable [phone] Camille Chandler PA-C Unavailable [phone] Anabela Barakat APRN ELECTRIC MOTOR REPAIR SUPERVISOR Unavailable Nima France-C Unavailable [phone] Basilio Morilol DO Unavailable [phone] Fawad York MD Unavailable [phone] Roopa Almonte MD Unavailable [phone] Augustine Callaway MD Unavailable Maryse Burton PA-C Unavailable Marquita Starkey MD Unavailable [phone] Roopa Almonte MD Unavailable [phone] Griffin Joshi MD Unavailable Rina Magallon RN Unavailable [phone] Paula Reza MD Primary Care Provider [phone] Griffin Joshi MD Unavailable Roopa Almonte MD Unavailable [phone] [facility] win DO Unavailable Lydia Bernstein PA-C Unavailable Rosa Maria Love Unavailable [phone] Augustine Callaway MD Unavailable Paula Reza MD Unavailable Keerthi Miner APRN ELECTRIC MOTOR REPAIR SUPERVISOR Unavailable Herman, Shahida Cummings APRN ELECTRIC MOTOR REPAIR SUPERVISOR Unavailable Un available Porsha Michaels APRN ELECTRIC MOTOR REPAIR SUPERVISOR Unavailable [phone] Paula Reza MD Unavailable Herman, Shahida Cummings APRN ELECTRIC MOTOR REPAIR SUPERVISOR Unavailable Un available Daylin Ludwig Unavailable [phone] Laurel Velasquez MD Unavailable [phone] aDylin Ludwig Unavailable [phone] Paula Reza MD Unavailable Porsha Michaels APRN ELECTRIC MOTOR REPAIR SUPERVISOR Unavailable [phone] Laurel Velasquez MD Unavailable [phone] Herman, Shahida Cummings APRN ELECTRIC MOTOR REPAIR SUPERVISOR Unavailable Un available Marilin Montaño ELECTRIC MOTOR REPAIR SUPERVISOR Unavailable [phone] Esha Dewitt MD Unavailable Heather Mosquera MD Unavailable Paula Reza MD Unavailable Esha Dewitt MD Unavailable [phone] Valdo Escamilla PA-C Unavailable [phone] Nohelia Abarca PA-C Unavailable [phone] Heather Mosquera MD Unavailable [phone] Fawad York MD Unavailable Encounter Details Date Type Department Care Team (Late st Contact Info) Description 11/13/2011 [facility] [address] [address] Mingo Aldana MD [facility] [address] [place] [address] Social History Tobacco Use Types [...] Ramirez - 11/13/2011 1:43 PM CDT See [employer] message documented in this encounter Plan of Treatment Not on file documented as of this encounter Visit Diagnoses Not on filedocumented in this encounter Additional Health Concerns Infection Onset Date Last Indicated Resolved Time Rule Out COVID-19 02/15/2020 02/15/2020 02/16/2020 2:32 PM RADIOLOGIST PHYSICIAN Rule Out COVID-19 01/05/2021 01/05/2021 01/06/2021 12:57 PM CDT ESBL 01/05/2021 01/05/2021 Rule Out COVID-19 06/30/2021 06/30/2021 07/01/2021 9:34 AM CDT Rule Out COVID-19 07/25/2021 07/25/2021 07/25/2021 8:02 PM CDT documented as of this encounter Care Teams Machine Cage Maker Relationship Specialty Start Date End Date Mingo Aldana MD PCP - General Family Practice 07/22/09 07/12/14 Shahida Sutton APRN ELECTRIC MOTOR REPAIR SUPERVISOR PCP - General Nurse Practitioner 08/17/14 08/04/21 Shahida Sutton APRN ELECTRIC MOTOR REPAIR SUPERVISOR PCP - Assigned PCP 07/12/14 05/07/18 Paula Reza MD [address] [place] [address] PCP - General Internal Medicine 08/05/21 Shahida Sutton APRN ELECTRIC MOTOR REPAIR SUPERVISOR Assigned PCP 07/12/14 09/30/21 Carolynn Ramon, KASIE Personal Advocate & Liaison (PAL) 12/17/18 08/07/21 [place] [address] [place] [address] Assigned Musculoskeletal Provider 12/26/19 08/21/20 Brady Lion MD Assigned Heart and Vascular Provider 12/26/19 08/14/20 Nima France PA-C [address] [place] [address] Assigned Surgical Provider 05/19/20 08/21/20 Camille Chandler PA-C 6545 [facility] [address] [place] [address] Assigned Neuroscience Provider 05/19/20 09/14/20 Anabela Barakat APRN ELECTRIC MOTOR REPAIR SUPERVISOR 1700 [place] [address] Assigned Heart and Vascular Provider 08/15/20 08/05/21 Nima France PA-C 6545 [facility] [address] [place] [address] Assigned Musculoskeletal Provider 08/22/20 11/13/20 [place] [address] [facility] [place] 592369 Assigned Musculoskeletal Provider 11/14/20 12/04/20 Fawad York MD [address] [place], [place] [address] Assigned Musculoskeletal Provider 12/05/20 02/05/21 Roopa Almonte MD [address] [place] [address] Endocrinology, Diabetes, and Metabolism 01/19/21 [place] [address] [place] [address] Assigned Musculoskeletal Provider 02/06/21 09/16/21 Maryse Burton PA-C [address] [facility] [address] Physician Meat Slicer Dermatology 04/14/21 Marquita Starkey MD [address] [facility] [address] [address] [place], [place] [address] Internal Medicine 05/06/21 05/06/21 Roopa Almonte MD [address] [facility] [address] [place], [place] [address] Hospitalist Endocrinology, Diabetes, and Metabolism 05/30/21 Griffin Joshi MD [address] [place] [address] Cardiovascular Disease 07/25/21 Rina Magallon, RN Lead Auto Specialty Services Manager 07/29/21 07/11/22 Griffin Joshi MD [address] [place] [address] Assigned Heart and Vascular Provider 08/06/21 10/07/21 Roopa Almonte MD [address] [place], [place] [address] Assigned Endocrinology Provider 09/10/21 [place] [address] [facility] [place] [address] Assigned Musculoskeletal Provider 09/17/21 10/14/21 Lydia Bernstein PA-C [address] [place] [address] Assigned PCP 10/01/21 10/21/21 Rosa Maria Love CHW Community Health Worker 10/06/21 [place] [address] [place] [address] Assigned Musculoskeletal Provider 10/15/21 04/26/23 Paula Reza MD [address] [place], [place] [address] Assigned PCP 10/22/21 12/23/21 Keerthi Miner APRN ELECTRIC MOTOR REPAIR SUPERVISOR [address] [place] [address] Assigned Heart and Vascular Provider 10/08/21 02/10/22 Shahida Sutton APRN ELECTRIC MOTOR REPAIR SUPERVISOR Assigned PCP 12/24/21 03/24/22 Porsha Michaels APRN ELECTRIC MOTOR REPAIR SUPERVISOR [address] [place] [address] Assigned Heart and Vascular Provider 02/11/22 05/12/22 Paula Reza MD [address] [place] [address] Assigned PCP 03/25/22 04/07/22 Shahida Sutton APRN ELECTRIC MOTOR REPAIR SUPERVISOR [address] [place] [address] Assigned PCP 04/08/22 06/30/22 Daylin Ludwig EP [facility] [address] [place] [address] Cardiac Rehabilitation Therapist 05/16/23 Laurel Velasquez MD [address] [place] [address] Assigned Heart and Vascular Provider 05/13/22 06/30/22 Daylin Ludwig EP [facility] [address] [place] [address] Cardiac Rehabilitation Therapist 06/08/22 06/09/23 Paula Reza MD [address] [facility] [address] [place], [place] [address] Assigned PCP 07/01/22 07/07/22 Porsha Michaels APRN ELECTRIC MOTOR REPAIR SUPERVISOR [address] [place] [address] Assigned Heart and Vascular Provider 07/01/22 07/07/22 Laurel Velasquez MD [address] [place] [address] Assigned Heart and Vascular Provider 07/08/22 08/04/22 Shahida Sutton APRN ELECTRIC MOTOR REPAIR SUPERVISOR Assigned PCP 07/08/22 09/08/22 Marilin Montaño, ELECTRIC MOTOR REPAIR SUPERVISOR [address] [place] [address] Assigned Heart and Vascular Provider 08/05/22 Esha Dewitt MD [address] [place] [address] Gastroenterology 09/06/22 Heather Mosquera MD 6545 [facility] 150 [place], [place] [address] Internal Medicine 09/06/22 Paula Reza MD [address] [place] [address] Assigned PCP 09/09/22 01/05/23 Esha Dewitt MD [address] [address] Assigned Gastroenterology Provider 09/23/22 Valdo Escamilla PA-C 6363 [facility] 103 [place] [address] Assigned Neuroscience Provider 09/30/22 Nohelia Abarca PA-C [address]50 [place] [address] Physician Meat Slicer Gastroenterology 10/03/22 Heather Mosquera MD 6545 [facility] 150 [place], [place] [address] Assigned PCP 01/06/23 Fawad York MD [address] [place], [place] [address] Assigned Musculoskeletal Provider 04/27/23 06/25/23 documented as of this encounter
--- OUTSIDE RECORDS SUMMARY | 2023-12-25 08:19 | XMS_ITS | Encounter Summary ---
Author Organization [facility] Address [address] [place] [address] Care Team Providers Care Stretching Press Operator Name Role Phone Mingo Aldana MD Primary Car e Provider Herman, Shahida Cummings APRN FILTRATION PLANT MECHANIC Primary Care Provi ford Unavailable Herman, Shahida Cummings APRN FILTRATION PLANT MECHANIC Unavailable Un available Herman, Shahida Cummings APRN FILTRATION PLANT MECHANIC Unavailable Un available Carolynn Ramon RN Unavailable [phone] Augustine Callaway MD Unavailable Brady Lion MD Unavailable Un available Nima France-C Unavailable [phone] Camille Chandler PA-C Unavailable [phone] Anabela Barakat APRN FILTRATION PLANT MECHANIC Unavailable Nima France-C Unavailable [phone] Basilio Morillo DO Unavailable Fawad [place] MD Unavailable [phone] Roopa Almonte MD Unavailable [phone] Augustine Callaway MD Unavailable Maryse Burton PA-C Unavailable Marquita Starkey MD Unavailable [phone] Roopa Almonte MD Unavailable [phone] Griffin Joshi MD Unavailable Rina Magallon RN Unavailable [phone] Paula Reza MD Primary Care Provider [phone] Griffin Joshi MD Unavailable Roopa Almonte MD Unavailable [phone] [facility] hospital[facility] win DO Unavailable Lydia Bernstein PA-C Unavailable Rosa Maria Love Unavailable [phone] [place] Callaway MD Unavailable Paula Reza MD Unavailable Keerthi Miner APRN FILTRATION PLANT MECHANIC Unavailable Herman, Shahida Cummings APRN FILTRATION PLANT MECHANIC Unavailable Un available Porsha Michaesl APRN FILTRATION PLANT MECHANIC Unavailable [phone] Paula Reza MD Unavailable Herman, Shahida Cummings APRN FILTRATION PLANT MECHANIC Unavailable Un available Daylin Ludwig Unavailable [phone] Laurel Velasquez MD Unavailable [phone] Daylin Ludwig Unavailable [phone] Paula Reza MD Unavailable Porsha Michaels APRN FILTRATION PLANT MECHANIC Unavailable [phone] Laurel Velasquez MD Unavailable [phone] Herman, Shahida Cummings APRN FILTRATION PLANT MECHANIC Unavailable Un available Marilin Montaño FILTRATION PLANT MECHANIC Unavailable [phone] Esha Dewitt MD Unavailable [phone] Heather Mosquera MD Unavailable Paula Reza MD Unavailable Esha Dewitt MD Unavailable [phone] Valdo Escamilla PA-C Unavailable [phone] Nohelia Abarca PA-C Unavailable [phone] Heather Mosquera MD Unavailable Fawad [place] MD Unavailable [phone] Encounter Details Date Type Department Care Team (Late st Contact Info) Description 06/15/2010 [facility] [place] [facility] [id number] [place] [phone] [place] [id number] [place] [id number] Social History Tobacco Use Types Packs/Day [...] Out COVID-19 02/15/2020 02/15/2020 02/16/2020 2:32 PM SQL APPLICATION DEVELOPER Rule Out COVID-19 01/05/2021 01/05/2021 01/06/2021 12:57 PM CDT ESBL 01/05/2021 01/05/2021 Rule Out COVID-19 06/30/2021 06/30/2021 07/01/2021 9:34 AM CDT Rule Out COVID-19 07/25/2021 07/25/2021 07/25/2021 8:02 PM CDT documented as of this encounter Care Teams Stretching Press Operator Relationship Specialty Start Date End Date Mingo Aldana MD PCP - General Family Practice 07/22/09 07/12/14 Shahida Sutton APRN FILTRATION PLANT MECHANIC PCP - General Nurse Practitioner 08/17/14 08/04/21 Shahida Sutton APRN FILTRATION PLANT MECHANIC PCP - Assigned PCP 07/12/14 05/07/18 Paula Reza MD [address] [place], [place] [id number] PCP - General Internal Medicine 08/05/21 Shahida Sutton APRN FILTRATION PLANT MECHANIC Assigned PCP 07/12/14 09/30/21 Carolynn Ramon, KASIE Personal Advocate & Liaison (PAL) 12/17/18 08/07/21 [place] [address] [place], [place] [address] Assigned Musculoskeletal Provider 12/26/19 08/21/20 Brady Lion MD Assigned Heart and Vascular Provider 12/26/19 08/14/20 Nima France PA-C [address] [place] [id number] Assigned Surgical Provider 05/19/20 08/21/20 Camille Chandler PA-C [address] [place] [id number] Assigned Neuroscience Provider 05/19/20 09/14/20 Anabela Barakat APRN CNP [address] [place] [address] Assigned Heart and Vascular Provider 08/15/20 08/05/21 Nima France PA-C 6545 [facility] 450 [place] [address] Assigned Musculoskeletal Provider 08/22/20 11/13/20 [place] [address] [place] [address] Assigned Musculoskeletal Provider 11/14/20 12/04/20 Fawad [place] MD [address] [place] [address] Assigned Musculoskeletal Provider 12/05/20 02/05/21 Roopa Almonte MD [address] [facility] [address] [place] [address] Endocrinology, Diabetes, and Metabolism 01/19/21 [place] [address] [facility] [address] [place] [address] Assigned Musculoskeletal Provider 02/06/21 09/16/21 Maryse Burton PA-C [address] [place] [address] Physician Nailhead Puncher Dermatology 04/14/21 Marquita Starkey MD [address] [facility] 200 [place] [address] Internal Medicine 05/06/21 05/06/21 Roopa Almonte MD [address] [facility] [address] [place] [address] Hospitalist Endocrinology, Diabetes, and Metabolism 05/30/21 Griffin Joshi MD [address] [place] [address] Cardiovascular Disease 07/25/21 Rina Magallon, RN Lead Endoscopy Tech 07/29/21 07/11/22 [place] Joshi MD [address] [place] [address] Assigned Heart and Vascular Provider 08/06/21 10/07/21 Roopa Almonte MD [address] [facility] 200 [place], [place] [address] Assigned Endocrinology Provider 09/10/21 [place] [address] [facility] [place] [address] Assigned Musculoskeletal Provider 09/17/21 10/14/21 Lydia Bernstein PA-C [address] [place] [id number] Assigned PCP 10/01/21 10/21/21 Rosa Maria Love CHW Community Health Worker 10/06/21 [place] [address] [place] [address] Assigned Musculoskeletal Provider 10/15/21 04/26/23 Paula Reza MD [address] [place] [address] Assigned PCP 10/22/21 12/23/21 Keerthi Miner APRN FILTRATION PLANT MECHANIC [address] [place] [id number] Assigned Heart and Vascular Provider 10/08/21 02/10/22 Shahida Sutton APRN FILTRATION PLANT MECHANIC Assigned PCP 12/24/21 03/24/22 Porsha Michaels APRN FILTRATION PLANT MECHANIC [address] [place] [address] Assigned Heart and Vascular Provider 02/11/22 05/12/22 Paula Reza MD [address] [place] [address] Assigned PCP 03/25/22 04/07/22 Shahida Sutton APRN FILTRATION PLANT MECHANIC [address] [place] [address] Assigned PCP 04/08/22 06/30/22 Daylin Ludwig EP [facility] [address] [place] [address] Cardiac Rehabilitation Therapist 05/16/23 Laurel Velasquez MD [address] [place] [address] Assigned Heart and Vascular Provider 05/13/22 06/30/22 Daylin Ludwig EP [facility] [address] [place] [address] Cardiac Rehabilitation Therapist 06/08/22 06/09/23 Paula Reza MD [address] [facility] [address] [place], [place] [address] Assigned PCP 07/01/22 07/07/22 Porsha Michaels APRN FILTRATION PLANT MECHANIC [address] [place] [address] Assigned Heart and Vascular Provider 07/01/22 07/07/22 Laurel Velasquez MD [address] [place] [address] Assigned Heart and Vascular Provider 07/08/22 08/04/22 Shahida Sutton APRN FILTRATION PLANT MECHANIC Assigned PCP 07/08/22 09/08/22 Marilin Montaño, FILTRATION PLANT MECHANIC [address] [place] [address] Assigned Heart and Vascular Provider 08/05/22 Esha Dewitt MD 420 [facility] 36 [place], [place] [address] Gastroenterology 09/06/22 Heather Mosquera MD [address] [place] [address] Internal Medicine 09/06/22 Paula Reza MD [address] [place] [address] Assigned PCP 09/09/22 01/05/23 Esha Dewitt MD [address] [facility] 36 [place], [place] [address] Assigned Gastroenterology Provider 09/23/22 Valdo Escamilla PA-C [address] [facility] [address] [place], [place] [id number] Assigned Neuroscience Provider 09/30/22 Nohelia Abarca PA-C [address] [place], [place] [address] Physician Nailhead Puncher Gastroenterology 10/03/22 Heather Mosquera MD [address] [place], [place] [address] Assigned PCP 01/06/23 Fawad [place] MD [address] [place], [place] [address] Assigned Musculoskeletal Provider 04/27/23 06/25/23 documented as of this encounter
--- OUTSIDE RECORDS SUMMARY | 2023-12-25 08:19 | XMS_ITS | Encounter Summary ---
Author Organization [facility] Address [address] [place] [address] Care Team Providers Care Complex Director Name Role Phone Mingo Aldana MD Primary Car e Provider Herman, Shahida Cummings APRN DIESEL SCOOP OPERATOR Primary Care Provi ford Unavailable Herman, Shahida Cummings APRN DIESEL SCOOP OPERATOR Unavailable Un available Herman, Shahida Cummings APRN DIESEL SCOOP OPERATOR Unavailable Un available Carolynn Ramon RN Unavailable [phone] Augustine Callaway MD Unavailable Brady Lion MD Unavailable Un available Nima France-C Unavailable [phone] Camille Chandler PA-C Unavailable [phone] Anabela Barakat APRN DIESEL SCOOP OPERATOR Unavailable Nima France-C Unavailable [phone] Basilio Morillo DO Unavailable Fawad [place] MD Unavailable [phone] Roopa Almonte MD Unavailable [phone] Augustine Callaway MD Unavailable Maryse Burton PA-C Unavailable Marquita Starkey MD Unavailable [phone] Roopa Almonte MD Unavailable [phone] Griffin Joshi MD Unavailable Rina Magallon RN Unavailable [phone] Paula Reza MD Primary Care Provider [phone] [place] Joshi MD Unavailable Roopa Almonte MD Unavailable [phone] [facility] win DO Unavailable Lydia Bernstein PA-C Unavailable Rosa Maria Love Unavailable [phone] Augustine Callaway MD Unavailable Paula Reza MD Unavailable Keerthi Miner APRN DIESEL SCOOP OPERATOR Unavailable Herman, Shahida Cummings APRN DIESEL SCOOP OPERATOR Unavailable Un available Porsha Michaels APRN DIESEL SCOOP OPERATOR Unavailable [phone] Paula Reza MD Unavailable Herman, Shahida Cummings APRN DIESEL SCOOP OPERATOR Unavailable Un available Daylin Ludwig Unavailable [phone] Laurel Velasquez MD Unavailable [phone] Daylin Ludwig Unavailable [phone] Paula Reza MD Unavailable Porsha Michaels APRN DIESEL SCOOP OPERATOR Unavailable [phone] Laurel Velasquez MD Unavailable [phone] Herman, Shahida Cummings APRN DIESEL SCOOP OPERATOR Unavailable Un available Marilin Montaño DIESEL SCOOP OPERATOR Unavailable [phone] Esha Dewitt MD Unavailable [phone] Heather Mosquera MD Unavailable Paula Reza MD Unavailable Esha Dewitt MD Unavailable [phone] Valdo Escamilla PA-C Unavailable Nohelia Abarca PA-C Unavailable [phone] Heather Mosquera MD Unavailable [phone] Fawad [place] MD Unavailable [phone] Encounter Details Date Type Department Care Team (Late st Contact Info) Description 05/28/[address], [facility] 100 [place] [address] [place] Social History Tobacco [...] Out COVID-19 02/15/2020 02/15/2020 02/16/2020 2:32 PM 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 Rule Out COVID-19 01/05/2021 01/05/2021 01/06/2021 12:57 PM CDT ESBL 01/05/2021 01/05/2021 Rule Out COVID-19 06/30/2021 06/30/2021 07/01/2021 9:34 AM CDT Rule Out COVID-19 07/25/2021 07/25/2021 07/25/2021 8:02 PM CDT documented as of this encounter Care Teams Complex Director Relationship Specialty Start Date End Date Mingo Aldana MD PCP - General Family Practice 07/22/09 07/12/14 Shahida Sutton APRN DIESEL SCOOP OPERATOR PCP - General Nurse Practitioner 08/17/14 08/04/21 Shahida Sutton APRN DIESEL SCOOP OPERATOR PCP - Assigned PCP 07/12/14 05/07/18 Paula Reza MD [address] [facility] 200 [place], [place] [address] PCP - General Internal Medicine 08/05/21 Shahida Sutton APRN DIESEL SCOOP OPERATOR Assigned PCP 07/12/14 09/30/21 Carolynn Ramon RN Personal Advocate & Liaison (PAL) 12/17/18 08/07/21 [place] [address] [place], [place] [address] Assigned Musculoskeletal Provider 12/26/19 08/21/20 Brady Lion MD Assigned Heart and Vascular Provider 12/26/19 08/14/20 Nima France PA-C [address] [place] [address] Assigned Surgical Provider 05/19/20 08/21/20 Camille Chandler PA-C [address] [place] [address] Assigned Neuroscience Provider 05/19/20 09/14/20 Anabela Barakat APRN CNP [address] [place] [address] Assigned Heart and Vascular Provider 08/15/20 08/05/21 Nima France PA-C 6545 [facility] 450 [place] [address] Assigned Musculoskeletal Provider 08/22/20 11/13/20 [place] [address] [place], [place] [address] Assigned Musculoskeletal Provider 11/14/20 12/04/20 Fawad [place] MD 9 [place], [place] [address] Assigned Musculoskeletal Provider 12/05/20 02/05/21 Roopa Almonte MD [address] [facility] 200 [place], [place] [address] Endocrinology, Diabetes, and Metabolism 01/19/21 [place] [address] [facility] 300 [place] [address] Assigned Musculoskeletal Provider 02/06/21 09/16/21 Maryse Burton PA-C 5200 [place] [address] Physician Magistrate Assistant Dermatology 04/14/21 Marquita Starkey MD [address] [facility] 200 [place], [place] [address] Internal Medicine 05/06/21 05/06/21 Roopa Almonte MD [address] [facility] 200 [place], [place] [address] Hospitalist Endocrinology, Diabetes, and Metabolism 05/30/21 [place] Joshi MD [address] [place] [address] Cardiovascular Disease 07/25/21 Rina Magallon, RN Lead Student Records Specialist 07/29/21 07/11/22 Griffin Joshi MD [address] [place] [address] Assigned Heart and Vascular Provider 08/06/21 10/07/21 Roopa Almonte MD [address] [place] [address] 200 [place], [place] [address] Assigned Endocrinology Provider 09/10/21 [place] [address] [facility] [place] [address] Assigned Musculoskeletal Provider 09/17/21 10/14/21 Lydia Bernstein PA-C [address] [place] [address] Assigned PCP 10/01/21 10/21/21 Rosa Maria Love CHW Community Health Worker 10/06/21 [place] [address] [facility] 300 [place], [place] [address] Assigned Musculoskeletal Provider 10/15/21 04/26/23 Paula Reza MD [address] [place] [address] Assigned PCP 10/22/21 12/23/21 Keerthi Miner APRN DIESEL SCOOP OPERATOR [address] [place] [address] Assigned Heart and Vascular Provider 10/08/21 02/10/22 Shahida Sutton APRN DIESEL SCOOP OPERATOR Assigned PCP 12/24/21 03/24/22 Porsha Michaels APRN DIESEL SCOOP OPERATOR [address] [place] [address] Assigned Heart and Vascular Provider 02/11/22 05/12/22 Paula Reza MD [address] [place] [address] Assigned PCP 03/25/22 04/07/22 Shahida Sutton APRN DIESEL SCOOP OPERATOR [address] [place] [address] Assigned PCP 04/08/22 06/30/22 Daylin Ludwig EP [facility] [address] [place] [address] Cardiac Rehabilitation Therapist 05/16/23 Laurel Velasquez MD [address] [place] [address] Assigned Heart and Vascular Provider 05/13/22 06/30/22 Daylin Ludwig EP [facility] [address] [place] [address] Cardiac Rehabilitation Therapist 06/08/22 06/09/23 Paula Reza MD [address] [place] [address] Assigned PCP 07/01/22 07/07/22 Porsha Michaels APRN DIESEL SCOOP OPERATOR [address] [place] [address] Assigned Heart and Vascular Provider 07/01/22 07/07/22 Laurel Velasquez MD [address] [place] [address] Assigned Heart and Vascular Provider 07/08/22 08/04/22 Shahida Sutton APRN DIESEL SCOOP OPERATOR Assigned PCP 07/08/22 09/08/22 Marilin Montaño, DIESEL SCOOP OPERATOR [address] [place] [address] Assigned Heart and Vascular Provider 08/05/22 Esha Dewitt MD [address] [place] [address] 36 [place], [place] [address] Gastroenterology 09/06/22 Heather Mosquera MD [address] [place] [address] Internal Medicine 09/06/22 Paula Reza MD [address] [place] [address] Assigned PCP 09/09/22 01/05/23 Esha Dewitt MD 420 [facility] 36 [place] [address] Assigned Gastroenterology Provider 09/23/22 Valdo Escamilla PA-C [address] [facility] [address] [place] [address] Assigned Neuroscience Provider 09/30/22 Nohelia Abarca PA-C [address] [facility] [place] [address] Physician Magistrate Assistant Gastroenterology 10/03/22 Heather Mosquera MD 6545 [facility] 150 [place] [address] Assigned PCP 01/06/23 Fawad [place] MD 9[address] [place] [address] Assigned Musculoskeletal Provider 04/27/23 06/25/23 documented as of this encounter
--- OUTSIDE RECORDS SUMMARY | 2023-12-25 08:19 | XMS_ITS | Encounter Summary ---
Author Organization [facility] Address [address] [place] [address] Care Team Providers Care Replenishment Merchandising Associate Name Role Phone Mingo Aladna MD Primary Car e Provider Herman, Shahida Cummings APRN QUALITY MANAGEMENT COORDINATOR Primary Care Provi ford Unavailable Herman, Shahida Cummings APRN QUALITY MANAGEMENT COORDINATOR Unavailable Un available Herman, Shahida Cummings APRN QUALITY MANAGEMENT COORDINATOR Unavailable Un available Carolynn Ramon RN Unavailable [phone] Augustine Callaway MD Unavailable Brady Lion MD Unavailable Un available Nima France-C Unavailable [phone] Camille Chandler PA-C Unavailable [phone] Anabela Barakat APRN QUALITY MANAGEMENT COORDINATOR Unavailable Nima France-C Unavailable [phone] Basilio Morillo DO Unavailable Fawad York MD Unavailable [phone] Roopa Almonte MD Unavailable [phone] Augustine Callaway MD Unavailable Maryse Burton PA-C Unavailable Marquita Starkey MD Unavailable [phone] Roopa Almonte MD Unavailable [phone] Griffin Joshi MD Unavailable Rina Magallon RN Unavailable [phone] Paula Reza MD Primary Care Provider [phone] Griffin Joshi MD Unavailable Roopa Almonte MD Unavailable [phone] [facility] Unavailable Lydia Bernstein PA-C Unavailable Rosa Maria Love Unavailable [phone] Augustine Callaway MD Unavailable Paula Reza MD Unavailable Keerthi Miner APRN QUALITY MANAGEMENT COORDINATOR Unavailable Herman, Shahida Cummings APRN QUALITY MANAGEMENT COORDINATOR Unavailable Un available Porsha Michaels APRN QUALITY MANAGEMENT COORDINATOR Unavailable [phone] Paula Reza MD Unavailable Herman, Shahida Cummings APRN QUALITY MANAGEMENT COORDINATOR Unavailable Un available Daylin Ludwig Unavailable [phone] Laurel Velasquez MD Unavailable [phone] Daylin Ludwig Unavailable [phone] Paula Reza MD Unavailable Porsha Michaels APRN QUALITY MANAGEMENT COORDINATOR Unavailable [phone] Laurel Velasquez MD Unavailable [phone] Herman, Shahida Cummings APRN QUALITY MANAGEMENT COORDINATOR Unavailable Un available Marilin Montaño QUALITY MANAGEMENT COORDINATOR Unavailable [phone] Esha Dewitt MD Unavailable [phone] Heather Mosquera MD Unavailable [phone] Paula Reza MD Unavailable Esha Dewitt MD Unavailable [phone] Valdo Escamilla PA-C Unavailable Nohelia Abarca PA-C Unavailable [phone] Heather Mosquera MD Unavailable Fawad York MD Unavailable [phone] Encounter Details Date Type Department Care Team (Late st Contact Info) Description 06/10/2010 [facility] [id number] [place] [id number] [place] [id number] [place] [id number] Social History Tobacco Use Types Packs/Day [...] Out COVID-19 02/15/2020 02/15/2020 02/16/2020 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 Rule Out COVID-19 01/05/2021 01/05/2021 01/06/2021 12:57 PM CDT ESBL 01/05/2021 01/05/2021 Rule Out COVID-19 06/30/2021 06/30/2021 07/01/2021 9:34 AM CDT Rule Out COVID-19 07/25/2021 07/25/2021 07/25/2021 8:02 PM CDT documented as of this encounter Care Teams Replenishment Merchandising Associate Relationship Specialty Start Date End Date Mingo Aldana MD PCP - General Family Practice 07/22/09 07/12/14 Shahida Sutton APRN QUALITY MANAGEMENT COORDINATOR PCP - General Nurse Practitioner 08/17/14 08/04/21 Shahida Sutton APRN QUALITY MANAGEMENT COORDINATOR PCP - Assigned PCP 07/12/14 05/07/18 Paula Reza MD [address] [place], [place] [id number] PCP - General Internal Medicine 08/05/21 Shahida Sutton APRN QUALITY MANAGEMENT COORDINATOR Assigned PCP 07/12/14 09/30/21 Carolynn Ramon, KASIE Personal Advocate & Liaison (PAL) 12/17/18 08/07/21 [place] [address] [place], [place] [address] Assigned Musculoskeletal Provider 12/26/19 08/21/20 Brady Lion MD Assigned Heart and Vascular Provider 12/26/19 08/14/20 Nima France PA-C [address] [place] [address] Assigned Surgical Provider 05/19/20 08/21/20 Camille Chandler PA-C [address] [place] [id number] Assigned Neuroscience Provider 05/19/20 09/14/20 Anabela Barakat APRN CNP [address] [place] [address] Assigned Heart and Vascular Provider 08/15/20 08/05/21 Nima France PA-C [address] [facility] 450 [place] [address] Assigned Musculoskeletal Provider 08/22/20 11/13/20 [place] [address] [place] [address] Assigned Musculoskeletal Provider 11/14/20 12/04/20 Fawad York MD [address] [place] [address] Assigned Musculoskeletal Provider 12/05/20 02/05/21 Roopa Almonte MD [address] [facility] 200 [place] [address] Endocrinology, Diabetes, and Metabolism 01/19/21 [place] [address] [facility] 300 [place] [address] Assigned Musculoskeletal Provider 02/06/21 09/16/21 Maryse Burton PA-C [address] [place] [address] Physician Tablet Repair Dermatology 04/14/21 Marquita Starkey MD [address] [facility] 200 [place] [address] Internal Medicine 05/06/21 05/06/21 Roopa Almonte MD [address] [facility] 200 [place] [address] Hospitalist Endocrinology, Diabetes, and Metabolism 05/30/21 Griffin Joshi MD [address] [place] [address] Cardiovascular Disease 07/25/21 Rina Magallon, RN Lead Agency Sales Representative 07/29/21 07/11/22 Griffin Joshi MD [address] [place] [address] Assigned Heart and Vascular Provider 08/06/21 10/07/21 Roopa Almonte MD [address] [facility] 200 [place], [place] [address] Assigned Endocrinology Provider 09/10/21 [place] [address] [facility] [place] [address] Assigned Musculoskeletal Provider 09/17/21 10/14/21 Lydia Bernstein PA-C [address] [place] [address] Assigned PCP 10/01/21 10/21/21 Rosa Maria Love CHW Community Health Worker 10/06/21 [place] [address] [place] [address] Assigned Musculoskeletal Provider 10/15/21 04/26/23 Paula Reza MD [address] [place] [address] Assigned PCP 10/22/21 12/23/21 Keerthi Miner APRN QUALITY MANAGEMENT COORDINATOR [address] [place] [id number] Assigned Heart and Vascular Provider 10/08/21 02/10/22 Shahida Sutton APRN QUALITY MANAGEMENT COORDINATOR Assigned PCP 12/24/21 03/24/22 Porsha Michaels APRN QUALITY MANAGEMENT COORDINATOR [address] [place] [address] Assigned Heart and Vascular Provider 02/11/22 05/12/22 Paula Reza MD [address] [place] [address] Assigned PCP 03/25/22 04/07/22 Shahida Sutton APRN QUALITY MANAGEMENT COORDINATOR [address] [place] [address] Assigned PCP 04/08/22 06/30/22 Daylin Ludwig EP [facility] [address] [place] [address] Cardiac Rehabilitation Therapist 05/16/23 Laurel Velasquez MD [address] [place] [address] Assigned Heart and Vascular Provider 05/13/22 06/30/22 Daylin Ludwig EP [facility] [address] [place] [address] Cardiac Rehabilitation Therapist 06/08/22 06/09/23 Paula Reza MD [address] [facility] 200 [place], [place] [address]137 Assigned PCP 07/01/22 07/07/22 Porsha Michaels APRN QUALITY MANAGEMENT COORDINATOR [address] [place] [address] Assigned Heart and Vascular Provider 07/01/22 07/07/22 Laurel Velasquez MD [address] [place] [address] Assigned Heart and Vascular Provider 07/08/22 08/04/22 Shahida Sutton APRN QUALITY MANAGEMENT COORDINATOR Assigned PCP 07/08/22 09/08/22 Marilin Montaño, QUALITY MANAGEMENT COORDINATOR [address] [place] [address] Assigned Heart and Vascular Provider 08/05/22 Esha Dewitt MD [address] [facility] 36 [place], [place] [address] Gastroenterology 09/06/22 Heather Mosquera MD [address] [place] [address] Internal Medicine 09/06/22 Paula Reza MD [address] [place] [address] Assigned PCP 09/09/22 01/05/23 Esha Dewitt MD [address] [facility] 36 [place], [place] [address] Assigned Gastroenterology Provider 09/23/22 Valdo Escamilla PA-C [address] [facility] [address] [place], [place] [address] Assigned Neuroscience Provider 09/30/22 Nohelia Abarca PA-C [address] [place], [place] [address] Physician Tablet Repair Gastroenterology 10/03/22 Heather Mosquera MD [address] [place], [place] [address] Assigned PCP 01/06/23 Fawad York MD [address] [place], [place] [address] Assigned Musculoskeletal Provider 04/27/23 06/25/23 documented as of this encounter
--- OUTSIDE RECORDS SUMMARY | 2023-12-25 08:19 | XMS_ITS | Encounter Summary ---
Author Organization [place] Address [address] [place] [address] Care Team Providers Care Wind Project Manager Name Role Phone Mingo Aldana MD Primary Car e Provider Herman, Shahida Cummings APRN CHIEF OF INTERNAL MEDICINE Primary Care Provi ford Unavailable Herman, Shahida Cummings APRN CHIEF OF INTERNAL MEDICINE Unavailable Un available Herman, Shahida Cummings APRN CHIEF OF INTERNAL MEDICINE Unavailable Un available Carolynn Ramon RN Unavailable [phone] Augustine Callaway MD Unavailable Brady Lion MD Unavailable Un available Nima France-C Unavailable [phone] Camille Chandler PA-C Unavailable [phone] Anabela Barakat APRN CHIEF OF INTERNAL MEDICINE Unavailable Nima France-C Unavailable [phone] Basilio Morillo DO Unavailable Fawad York MD Unavailable [phone] Roopa Almonte MD Unavailable [phone] Augustine Callaway MD Unavailable Maryse Burton PA-C Unavailable Marquita Starkey MD Unavailable [phone] Roopa Alomnte MD Unavailable [phone] Griffin Joshi MD Unavailable Rina Magallon RN Unavailable [phone] Paula Reza MD Primary Care Provider [phone] Griffin Joshi MD Unavailable Roopa Almonte MD Unavailable [phone] [facility] DO Unavailable Lydia Bernstein PA-C Unavailable Rosa Maria Love Unavailable [phone] Augustine Callaway MD Unavailable Paula Reza MD Unavailable Keerthi Miner APRN CHIEF OF INTERNAL MEDICINE Unavailable Herman, Shahida Cummings APRN CHIEF OF INTERNAL MEDICINE Unavailable Un available Porsha Michaels APRN CHIEF OF INTERNAL MEDICINE Unavailable [phone] Paula Reza MD Unavailable Herman, Shahida Cummings APRN CHIEF OF INTERNAL MEDICINE Unavailable Un available Daylin Ludwig Unavailable [phone] Laurel Velasquez MD Unavailable [phone] Daylin Ludwig Unavailable [phone] Paula Reza MD Unavailable Porsha Michaels APRN CHIEF OF INTERNAL MEDICINE Unavailable [phone] Laurel Velasquez MD Unavailable [phone] Herman, Shahida Cummings APRN CHIEF OF INTERNAL MEDICINE Unavailable Un available Marilin Montaño CHIEF OF INTERNAL MEDICINE Unavailable [phone] Esha Dewitt MD Unavailable [phone] Heather Mosquera MD Unavailable [phone] Paula Reza MD Unavailable Esha Dewitt MD Unavailable [phone] Valdo Escamilla PA-C Unavailable [phone] Nohelia Abarca PA-C Unavailable [phone] Heather Mosquera MD Unavailable Fawad York MD Unavailable [phone] Encounter Details Date Type Department Care Team (Late st Contact Info) Description 09/05/[address] [id number] Maximiliano Herrmann Social History Tobacco [...] Out COVID-19 02/15/2020 02/15/2020 02/16/2020 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 Rule Out COVID-19 01/05/2021 01/05/2021 01/06/2021 12:57 PM CDT ESBL 01/05/2021 01/05/2021 Rule Out COVID-19 06/30/2021 06/30/2021 07/01/2021 9:34 AM CDT Rule Out COVID-19 07/25/2021 07/25/2021 07/25/2021 8:02 PM CDT documented as of this encounter Care Teams Wind Project Manager Relationship Specialty Start Date End Date Mingo Aldana MD PCP - General Family Practice 07/22/09 07/12/14 Shahida Sutton APRN CHIEF OF INTERNAL MEDICINE PCP - General Nurse Practitioner 08/17/14 08/04/21 Shahida Sutton APRN CHIEF OF INTERNAL MEDICINE PCP - Assigned PCP 07/12/14 05/07/18 Paula Reza MD [address] [facility] 200 [place] [address] PCP - General Internal Medicine 08/05/21 Shahida Sutton APRN CHIEF OF INTERNAL MEDICINE Assigned PCP 07/12/14 09/30/21 Carolynn Ramon RN Personal Advocate & Liaison (PAL) 12/17/18 08/07/21 [place] [address] [place] [address] Assigned Musculoskeletal Provider 12/26/19 08/21/20 Brady Lion MD Assigned Heart and Vascular Provider 12/26/19 08/14/20 Nima France PA-C [address] [place] [address] Assigned Surgical Provider 05/19/20 08/21/20 Camille Chandler PA-C [address] [place] [address] Assigned Neuroscience Provider 05/19/20 09/14/20 Anabela Barakat APRN CNP [address] [place] [address] Assigned Heart and Vascular Provider 08/15/20 08/05/21 Nima France PA-C [address] [facility] 450 [place] [address] Assigned Musculoskeletal Provider 08/22/20 11/13/20 [place] [address] [facility] [place], [place] [address] Assigned Musculoskeletal Provider 11/14/20 12/04/20 Fawad York MD 9 [place], [place] [address] Assigned Musculoskeletal Provider 12/05/20 02/05/21 Roopa Almonte MD [address] [facility] 200 [place], [place] [address] Endocrinology, Diabetes, and Metabolism 01/19/21 [place] [address] [facility] [facility] 300 [place] [address] Assigned Musculoskeletal Provider 02/06/21 09/16/21 Maryse Burton PA-C [address] [place] [address] Physician Health Counselor Dermatology 04/14/21 Marquita Starkey MD [address] [facility] 200 [place], [place] [address] Internal Medicine 05/06/21 05/06/21 Roopa Almonte MD [address] [facility] 200 [place] [address] Hospitalist Endocrinology, Diabetes, and Metabolism 05/30/21 Griffin Joshi MD [address] [place] [address] Cardiovascular Disease 07/25/21 Rina Magallon, RN Lead Paraprofessional Education Assistant 07/29/21 07/11/22 Griffin Joshi MD [address] [facility] [address] [place] [address] Assigned Heart and Vascular Provider 08/06/21 10/07/21 Roopa Almonte MD [address] [facility] 200 [place] [address] Assigned Endocrinology Provider 09/10/21 [place] [address] [place] [address] Assigned Musculoskeletal Provider 09/17/21 10/14/21 Lydia Bernstein PA-C [address] [place] [address] Assigned PCP 10/01/21 10/21/21 Rosa Maria Love CHW Community Health Worker 10/06/21 [place] [address] [facility] [facility] 300 [place] [address] Assigned Musculoskeletal Provider 10/15/21 04/26/23 Paula Reza MD [address] [place] [address] Assigned PCP 10/22/21 12/23/21 Keerthi Miner APRN CHIEF OF INTERNAL MEDICINE [address] [place] [address] Assigned Heart and Vascular Provider 10/08/21 02/10/22 Shahida Sutton APRN CHIEF OF INTERNAL MEDICINE Assigned PCP 12/24/21 03/24/22 Porsha Michaels APRN CHIEF OF INTERNAL MEDICINE [address] [place] [address] Assigned Heart and Vascular Provider 02/11/22 05/12/22 Paula Reza MD [address] [place] [address] Assigned PCP 03/25/22 04/07/22 Shahida Sutton APRN CHIEF OF INTERNAL MEDICINE [address] [address] Assigned PCP 04/08/22 06/30/22 Daylin Ludwig EP [facility] [address] [place] [address] Cardiac Rehabilitation Therapist 05/16/23 Laurel Velasquez MD [address] [address] Assigned Heart and Vascular Provider 05/13/22 06/30/22 Daylin Ludwig EP [facility] [address] [place], [place] [address] Cardiac Rehabilitation Therapist 06/08/22 06/09/23 Paula Reza MD [address] [place], [place] [address] Assigned PCP 07/01/22 07/07/22 Porsha Michaels APRN CHIEF OF INTERNAL MEDICINE [address] [place] [address] Assigned Heart and Vascular Provider 07/01/22 07/07/22 Laurel Velasquez MD [address] [place] [address] Assigned Heart and Vascular Provider 07/08/22 08/04/22 Shahida Sutton APRN CHIEF OF INTERNAL MEDICINE Assigned PCP 07/08/22 09/08/22 Marilin Monatño, CHIEF OF INTERNAL MEDICINE [address] [place] [address] Assigned Heart and Vascular Provider 08/05/22 Esha Dewitt MD [address] [place] [address] 36 [place] [address] Gastroenterology 09/06/22 Heather Mosquera MD [address] [place] [address] Internal Medicine 09/06/22 Paula Reza MD [address] [place] [address] Assigned PCP 09/09/22 01/05/23 Esha Dewitt MD 420 [facility] 36 [place] [address] Assigned Gastroenterology Provider 09/23/22 Valdo Escamilla PA-C [address] [facility] 103 [place] [address] Assigned Neuroscience Provider 09/30/22 Nohelia Abarca PA-C [address]50 [place] [address] Physician Health Counselor Gastroenterology 10/03/22 Heather Mosquera MD 6545 [facility] 150 [place] [address] Assigned PCP 01/06/23 Fawad York MD 909 [place] [address] Assigned Musculoskeletal Provider 04/27/23 06/25/23 documented as of this encounter
--- OUTSIDE RECORDS SUMMARY | 2023-12-25 08:19 | XMS_ITS | Encounter Summary ---
Author Organization [place] Address [address] [place] [address] Care Team Providers Care Cattle Manager Name Role Phone Mingo Aldana MD Primary Car e Provider Herman, Shahida Cummings APRN DRILLER'S ASSISTANT Primary Care Provi ford Unavailable Herman, Shahida Cummings APRN DRILLER'S ASSISTANT Unavailable Un available Herman, Shahida Cummings APRN DRILLER'S ASSISTANT Unavailable Un available Carolynn Ramon RN Unavailable [phone] Augustine Callaway MD Unavailable Brady Lion MD Unavailable Un available Nima France-C Unavailable [phone] Camille Chandler PA-C Unavailable [phone] Anabela Barakat APRN DRILLER'S ASSISTANT Unavailable Nima France-C Unavailable [phone] Basilio Morillo DO Unavailable [phone] Fawad York MD Unavailable [phone] Roopa Almonte MD Unavailable [phone] Augustine Callaway MD Unavailable Maryse Burton PA-C Unavailable Marquita Starkey MD Unavailable [phone] Roopa Almonte MD Unavailable [phone] Griffin Joshi MD Unavailable Rina Magallon RN Unavailable [phone] Paula Reza MD Primary Care Provider [phone] Griffin Joshi MD Unavailable Roopa Almonte MD Unavailable [phone] [facility] island[facility]ilio win DO Unavailable Lydia Bernstein PA-C Unavailable Rosa Maria Love Unavailable [phone] Augustine Callaway MD Unavailable Paula Reza MD Unavailable Keerthi Miner APRN DRILLER'S ASSISTANT Unavailable Herman, Shahida Cummings APRN DRILLER'S ASSISTANT Unavailable Un available Porsha Michaels APRN DRILLER'S ASSISTANT Unavailable [phone] Paula Reza MD Unavailable Herman, Shahida Cummings APRN DRILLER'S ASSISTANT Unavailable Un available Daylin Ludwig Unavailable [phone] Laurel Velasquez MD Unavailable [phone] Daylin Ludwig Unavailable [phone] Paula Reza MD Unavailable Porsha Michaels APRN DRILLER'S ASSISTANT Unavailable [phone] Laurel Velasquez MD Unavailable [phone] Herman, Shahida Cummings APRN DRILLER'S ASSISTANT Unavailable Un available Marilin Montaño DRILLER'S ASSISTANT Unavailable [phone] Esha Dewitt MD Unavailable [phone] Heather Mosquera MD Unavailable [phone] Paula Reza MD Unavailable Esha Dewitt MD Unavailable [phone] Valdo Escamilla PA-C Unavailable Nohelia Abarca PA-C Unavailable [phone] Heather Mosquera MD Unavailable [phone] Fawad York MD Unavailable Encounter Details Date Type Department Care Team (Late st Contact Info) Description 07/03/2011 MyC Medical Advice [address] [address] Mingo Aldana MD [facility] [address] [place] [address] Social History Tobacco Use Types [...] COVID-19 02/15/2020 02/15/2020 02/16/2020 2:32 PM FIELD SUPPORT REP Rule Out COVID-19 01/05/2021 01/05/2021 01/06/2021 12:57 PM CDT ESBL 01/05/2021 01/05/2021 Rule Out COVID-19 06/30/2021 06/30/2021 07/01/2021 9:34 AM CDT Rule Out COVID-19 07/25/2021 07/25/2021 07/25/2021 8:02 PM CDT documented as of this encounter Care Teams Cattle Manager Relationship Specialty Start Date End Date Mingo Aldana MD PCP - General Family Practice 07/22/09 07/12/14 Shahida Sutton APRN DRILLER'S ASSISTANT PCP - General Nurse Practitioner 08/17/14 08/04/21 Shahida Sutton APRN DRILLER'S ASSISTANT PCP - Assigned PCP 07/12/14 05/07/18 Paula Reza MD [address] [place] [address] PCP - General Internal Medicine 08/05/21 Shahida Sutton APRN DRILLER'S ASSISTANT Assigned PCP 07/12/14 09/30/21 Carolynn Ramon, KASIE Personal Advocate & Liaison (PAL) 12/17/18 08/07/21 [place] [address] [place] [address] Assigned Musculoskeletal Provider 12/26/19 08/21/20 Brady Lion MD Assigned Heart and Vascular Provider 12/26/19 08/14/20 Nima France PA-C [address] [place] [address] Assigned Surgical Provider 05/19/20 08/21/20 Camille Chandler PA-C [address] [place] [address] Assigned Neuroscience Provider 05/19/20 09/14/20 Anabela Barakat APRN CNP [address] [place] [address] Assigned Heart and Vascular Provider 08/15/20 08/05/21 Nima France PA-C [address]45 [facility] [address] [place] [address] Assigned Musculoskeletal Provider 08/22/20 11/13/20 [place] [address] [place], [place] [address]39 Assigned Musculoskeletal Provider 11/14/20 12/04/20 Fawad York MD [address] [place], [place] [address]165 Assigned Musculoskeletal Provider 12/05/20 02/05/21 Roopa Almonte MD [address] [facility] [address] [place] [address] Endocrinology, Diabetes, and Metabolism 01/19/21 [place] [address] [facility] [address] [place] [address] Assigned Musculoskeletal Provider 02/06/21 09/16/21 Maryse Burton PA-C [address] [place] [address] Physician Cherry Pitter Dermatology 04/14/21 Marquita Starkey MD [address] [place] [address] Internal Medicine 05/06/21 05/06/21 Roopa Almonte MD [address] [facility] [address] [place] [address] Hospitalist Endocrinology, Diabetes, and Metabolism 05/30/21 Griffin Joshi MD [address] [place] [address] Cardiovascular Disease 07/25/21 Rina Magallon, RN Lead Corporate Recruiter 07/29/21 07/11/22 Griffin Joshi MD [address] [place] [id number] Assigned Heart and Vascular Provider 08/06/21 10/07/21 Roopa Almonte MD [address] [place] [address] 200 [place], [place] [address] Assigned Endocrinology Provider 09/10/21 [place] [address] [facility] [place] [address] Assigned Musculoskeletal Provider 09/17/21 10/14/21 Lydia Bernstein PA-C [address] [place] [id number] Assigned PCP 10/01/21 10/21/21 Rosa Maria Love CHW Community Health Worker 10/06/21 [place] [address] [place] [address] Assigned Musculoskeletal Provider 10/15/21 04/26/23 Paula Reza MD [address] [place] [address] Assigned PCP 10/22/21 12/23/21 Keerthi Miner APRN DRILLER'S ASSISTANT [address] [place] [address] Assigned Heart and Vascular Provider 10/08/21 02/10/22 Shahida Sutton APRN DRILLER'S ASSISTANT Assigned PCP 12/24/21 03/24/22 Porsha Michaels APRN DRILLER'S ASSISTANT [address] [place] [address] Assigned Heart and Vascular Provider 02/11/22 05/12/22 Paula Reza MD [address] [place] [address] Assigned PCP 03/25/22 04/07/22 Shahida Sutton APRN DRILLER'S ASSISTANT [address] [place] [address] Assigned PCP 04/08/22 06/30/22 Daylin Ludwig EP [facility] [address] [place] [address] Cardiac Rehabilitation Therapist 05/16/23 Laurel Velasquez MD [address] [place] [address] Assigned Heart and Vascular Provider 05/13/22 06/30/22 Daylin Ludwig EP [facility] [address] [place] [address] Cardiac Rehabilitation Therapist 06/08/22 06/09/23 Paula Reza MD [address] [facility] [address] [place], [place] [address] Assigned PCP 07/01/22 07/07/22 Porsha Michaels APRN DRILLER'S ASSISTANT [address] [place] [address] Assigned Heart and Vascular Provider 07/01/22 07/07/22 Laurel Velasquez MD [address] [place], [place] [address] Assigned Heart and Vascular Provider 07/08/22 08/04/22 Shahida Sutton APRN DRILLER'S ASSISTANT Assigned PCP 07/08/22 09/08/22 Marilin Montaño, DRILLER'S ASSISTANT [address] [place] [address] Assigned Heart and Vascular Provider 08/05/22 Esha Dewitt MD [address] [place] [address] 36 [place], [place] [address] Gastroenterology 09/06/22 Heather Mosquera MD [address] [place] [address] Internal Medicine 09/06/22 Paula Reza MD [address] [facility] [address] [place] [address] Assigned PCP 09/09/22 01/05/23 Esha Dewitt MD 420 [facility] 36 [place], [place] [address] Assigned Gastroenterology Provider 09/23/22 Valdo Escamilla PA-C [address] [place] [address] Assigned Neuroscience Provider 09/30/22 Nohelia Abarca PA-C [address]50 [place] [address] Physician Cherry Pitter Gastroenterology 10/03/22 Heather Mosquera MD [address] [facility] [address] [facility] 150 [place], [place] [address] Assigned PCP 01/06/23 Fawad York MD [address] [place], [place] [address] Assigned Musculoskeletal Provider 04/27/23 06/25/23 documented as of this encounter
--- OUTSIDE RECORDS SUMMARY | 2023-12-25 08:19 | XMS_ITS | Encounter Summary ---
Author Organization [place] Address [address] [place] [address] Care Team Providers Care Knot Tier Name Role Phone Mingo Aldana MD Primary Car e Provider Herman, Shahida Cummings APRN HEEL ATTACHER WOOD Primary Care Provi ford Unavailable Herman, Shahida Cummings APRN HEEL ATTACHER WOOD Unavailable Un available Herman, Shahida Cummings APRN HEEL ATTACHER WOOD Unavailable Un available Carolynn Ramon RN Unavailable [phone] Augustine Callaway MD Unavailable Brady Lion MD Unavailable Un available Nima France-C Unavailable [phone] Camille Chandler PA-C Unavailable [phone] Anabela Barakat APRN HEEL ATTACHER WOOD Unavailable Nima France-C Unavailable [phone] Basilio Morillo DO Unavailable Fawad York MD Unavailable [phone] Roopa Almonte MD Unavailable [phone] Augustine Callaway MD Unavailable Maryse Burton PA-C Unavailable Marquita Starkey MD Unavailable [phone] Roopa Almonte MD Unavailable [phone] Griffin Joshi MD Unavailable Rina Magallon RN Unavailable [phone] Paula Reza MD Primary Care Provider [phone] Griffin Joshi MD Unavailable Roopa Almonte MD Unavailable [phone] [facility] win DO Unavailable Lydia Bernstein PA-C Unavailable Rosa Maria Love Unavailable [phone] Augustine Callaway MD Unavailable Paula Reza MD Unavailable Keerthi Miner APRN HEEL ATTACHER WOOD Unavailable Herman, Shahida Cummings APRN HEEL ATTACHER WOOD Unavailable Un available Porsha Michaels APRN HEEL ATTACHER WOOD Unavailable [phone] Paula Reza MD Unavailable Herman, Shahida Cummings APRN HEEL ATTACHER WOOD Unavailable Un available Daylin Ludwig Unavailable [phone] Laurel Velasquez MD Unavailable [phone] Daylin Ludwig Unavailable [phone] Paula Reza MD Unavailable Porsha Michaels APRN HEEL ATTACHER WOOD Unavailable [phone] Laurel Velasquez MD Unavailable [phone] Herman, Shahida Cummings APRN HEEL ATTACHER WOOD Unavailable Un available Marilin Montaño HEEL ATTACHER WOOD Unavailable [phone] Esha Dewitt MD Unavailable [phone] Heather Mosquera MD Unavailable [phone] Paula Reza MD Unavailable Esha Dewitt MD Unavailable [phone] AyseValdo cabrera Deo PA-C Unavailable Nohelia Abarca PA-C Unavailable [phone] Heather Mosquera MD Unavailable [phone] Fawad York MD Unavailable [phone] Reason for Visit * Reason Onset Date Comments MyChart Communication 04/17/[address] ress test Encounter Details Date Type Department Care Team (Late st Contact Info) Description 04/17/2012 MyC Medical Advice [address], [address] [place] [address] Mingo Aldana MD [facility] [address] [place] [address] MyChart Communication (nuclear stress test) Social History [...] COVID-19 02/15/2020 02/15/2020 02/16/2020 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 Rule Out COVID-19 01/05/2021 01/05/2021 01/06/2021 12:57 PM CDT ESBL 01/05/2021 01/05/2021 Rule Out COVID-19 06/30/2021 06/30/2021 07/01/2021 9:34 AM CDT Rule Out COVID-19 07/25/2021 07/25/2021 07/25/2021 8:02 PM CDT documented as of this encounter Care Teams Knot Tier Relationship Specialty Start Date End Date Katya Jasonyaneth Bimal Celestin MD PCP - General Family Practice 07/22/09 07/12/14 Shahida Sutton APRN HEEL ATTACHER WOOD PCP - General Nurse Practitioner 08/17/14 08/04/21 Shahida Sutton APRN HEEL ATTACHER WOOD PCP - Assigned PCP 07/12/14 05/07/18 Paula Reza MD [address] [facility] 200 [place], [place] [address] PCP - General Internal Medicine 08/05/21 Shahida Sutton APRN HEEL ATTACHER WOOD Assigned PCP 07/12/14 09/30/21 Carolynn Ramon, KASIE Personal Advocate & Liaison (PAL) 12/17/18 08/07/21 [place] [address] [place] [address] Assigned Musculoskeletal Provider 12/26/19 08/21/20 Brady Lion MD Assigned Heart and Vascular Provider 12/26/19 08/14/20 Nima France PA-C [address] [place] [address] Assigned Surgical Provider 05/19/20 08/21/20 Camille Chandler PA-C 6545 [facility] [address] [place], [place] [address] Assigned Neuroscience Provider 05/19/20 09/14/20 Anabela Barakat APRN HEEL ATTACHER WOOD [address] [place] [address] Assigned Heart and Vascular Provider 08/15/20 08/05/21 Nima France PA-C 6545 [facility] 450 [place] [address] Assigned Musculoskeletal Provider 08/22/20 11/13/20 [place] [address] [place] [address] Assigned Musculoskeletal Provider 11/14/20 12/04/20 Fawad York MD [address] [place] [address] Assigned Musculoskeletal Provider 12/05/20 02/05/21 Roopa Almonte MD [address] [facility] 200 [place] [address] Endocrinology, Diabetes, and Metabolism 01/19/21 [place] [address] [facility] 300 [place], [place] [address] Assigned Musculoskeletal Provider 02/06/21 09/16/21 Maryse Burton PA-C [address] [place] [address] Physician Junior Accountant Bookkeeper Dermatology 04/14/21 Marquita Starkey MD [address] [place] [address] Internal Medicine 05/06/21 05/06/21 Roopa Almonte MD [address] [facility] [address] [place] [address] Hospitalist Endocrinology, Diabetes, and Metabolism 05/30/21 Griffin Joshi MD [address] [place] [id number] Cardiovascular Disease 07/25/21 Rina Magallon RN Lead Needle Punch 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 Helper 07/29/21 07/11/22 Griffin Joshi MD [address] [place] [address] Assigned Heart and Vascular Provider 08/06/21 10/07/21 Roopa Almonte MD [address] [place], [place] [address] Assigned Endocrinology Provider 09/10/21 [place] [address] [facility] [place] [address] Assigned Musculoskeletal Provider 09/17/21 10/14/21 Lydia Bernstein PA-C [address] [place] [id number] Assigned PCP 10/01/21 10/21/21 Kate Rosa Maria, W Community Health Worker 10/06/21 [place] [address] [place] [address] Assigned Musculoskeletal Provider 10/15/21 04/26/23 Paula Reza MD [address] [place] [address] Assigned PCP 10/22/21 12/23/21 Keerthi Miner APRN HEEL ATTACHER WOOD [address] [place] [address] Assigned Heart and Vascular Provider 10/08/21 02/10/22 Shahida Sutton APRN HEEL ATTACHER WOOD Assigned PCP 12/24/21 03/24/22 Porsha Michaels APRN HEEL ATTACHER WOOD [address] [place] [address] Assigned Heart and Vascular Provider 02/11/22 05/12/22 Paula Reza MD [address] [place] [address] Assigned PCP 03/25/22 04/07/22 Shahida Sutton APRN HEEL ATTACHER WOOD [address] [place] [address] Assigned PCP 04/08/22 06/30/22 Daylin Ludwig EP [facility] [address] [place] [address] Cardiac Rehabilitation Therapist 05/16/23 Laurel Velasquez MD [address] [place] [address] Assigned Heart and Vascular Provider 05/13/22 06/30/22 Daylin Ludwig EP [facility] [address] [place] [address] Cardiac Rehabilitation Therapist 06/08/22 06/09/23 Paula Reza MD [address] [facility] [address] [place], [place] [address] Assigned PCP 07/01/22 07/07/22 Porsha Michaels APRN HEEL ATTACHER WOOD [address] [place] [address] Assigned Heart and Vascular Provider 07/01/22 07/07/22 Laurel Velasquez MD [address] [place] [address] Assigned Heart and Vascular Provider 07/08/22 08/04/22 Shahida Sutton, STRUCTURAL STEEL WORKER HEEL ATTACHER WOOD Assigned PCP 07/08/22 09/08/22 Marilin Montaño, HEEL ATTACHER WOOD [address] [place] [address] Assigned Heart and Vascular Provider 08/05/22 Esha Dewitt MD 420 [facility] 36 [place], [place] [address] Gastroenterology 09/06/22 Heather Mosquera MD [address] [place] [address] Internal Medicine 09/06/22 Paula Reza MD [address] [facility] 200 [place] [address] Assigned PCP 09/09/22 01/05/23 Esha Dewitt MD 420 [facility] 36 [place], [place] [address] Assigned Gastroenterology Provider 09/23/22 Valdo Escamilla PA-C [address] [facility] [address] [place] [id number] Assigned Neuroscience Provider 09/30/22 Nohelia Abarca PA-C [address] [place], [place] [address] Physician Junior Accountant Bookkeeper Gastroenterology 10/03/22 Heather Mosquera MD [address] [place] [address] Assigned PCP 01/06/23 Fawad York MD [address] [place], [place] [address] Assigned Musculoskeletal Provider 04/27/23 06/25/23 documented as of this encounter
--- OUTSIDE RECORDS SUMMARY | 2023-12-25 08:20 | XMS_ITS | Encounter Summary ---
Author Organization [facility] Address [address] [place] [address] Care Team Providers Care Systems Technologist Name Role Phone Dixon Carson MD Primary Care Provider Mingo Aldana MD Primary Car e Provider Shahida Sutton PHOTOGRAPHIC PROCESS SCREEN MAKER FAMILY COURT JUSTICE Primary Care Provi ford Unavailable Herman, Shahida Cummings APRN FAMILY COURT JUSTICE Unavailable Un available Herman, Shahida Cummings APRN FAMILY COURT JUSTICE Unavailable Un available Carolynn Ramon RN Unavailable [phone] Augustine Callaway MD Unavailable Brady Lion MD Unavailable Un available Nima FranceC Unavailable [phone] Camille Chandler PA-C Unavailable [phone] [address]a Barakat APRN FAMILY COURT JUSTICE Unavailable Nima FranceC Unavailable [phone] Basilio Morillo DO Unavailable [phone] Fawad York MD Unavailable [phone] Roopa Almonte MD Unavailable [phone] Augustine Callaway MD Unavailable Maryse Burton [...] Paula Reza MD Unavailable Keerthi Miner APRN FAMILY COURT JUSTICE Unavailable Herman, Shahida Cummings APRN FAMILY COURT JUSTICE Unavailable Un available Porsha Michaels APRN FAMILY COURT JUSTICE Unavailable [phone] Paula Reza MD Unavailable Herman, Shahida Cummings APRN FAMILY COURT JUSTICE Unavailable Un available Daylin Ludwig Unavailable [phone] Laurel Velasquez MD Unavailable Daylin Ludwig Unavailable [phone] Paula Reza MD Unavailable Porsha Michaels APRN FAMILY COURT JUSTICE Unavailable [phone] Laurel Velasquez MD Unavailable Herman, Shahida Cummings APRN FAMILY COURT JUSTICE Unavailable Un available Marilin Montaño FAMILY COURT JUSTICE Unavailable Esha Dewitt MD Unavailable [phone] Heather Mosquera MD Unavailable Paula Reza MD Unavailable Esha Dewitt MD Unavailable [phone] AyseValdo cabrera Deo WEBB Unavailable [phone] Nohelia Abarca PA-C Unavailable [phone] Heather Mosquera MD Unavailable [phone] Fawad York MD Unavailable Reason for Visit * Reason Onset Date Comments Refill Request 02/14/2008 diazepam Encounter Details Date Type Department Care Team (Late st Contact Info) Description 02/14/2008 MyC [address] [address] Dixon Carson MD [address] [address] Refill Request (diazepam) Social History Tobacco Use [...] - 02/14/2008 12:59 PM CST See below ING REPAIRER * Telephone Encounter - Ratna Lambert - 02/14/2008 12:39 PM CST Date of last OV: 12/30/07 Reason for visit: lumbago Date last filled: per epic 12/30/07 #24 Labs pertaining to med: none ,Unable to approve per standing orders, routed to provider. Ratna Lambert RN ING REPAIRER * Telephone Encounter - Ratna Lambert - 02/14/2008 12:38 PM CSTMessage from MyChart: Original authorizing provider: Dixon Terrell would like a refill of the following medications: DIAZEPAM 5 MG OR TABS [Dixon Carson MD] Preferred pharmacy: [facility] Comment: occasional back flare-ups, less than before, but still periodically somewhat dibilitating ING REPAIRER documented in this encounter Plan of Treatment Not on file documented as of this encounter Visit Diagnoses Diagnosis Lumbago documented in this encounter Additional Health Concerns Infection Onset Date Last Indicated Resolved Time Rule Out COVID-19 02/15/2020 02/15/2020 02/16/2020 2:32 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 Rule Out COVID-19 01/05/2021 01/05/2021 01/06/2021 12:57 PM CDT ESBL 01/05/2021 01/05/2021 Rule Out COVID-19 06/30/2021 06/30/2021 07/01/2021 9:34 AM CDT Rule Out COVID-19 07/25/2021 07/25/2021 07/25/2021 8:02 PM CDT documented as of this encounter Care Teams Systems Technologist Relationship Specialty Start Date End Date Dixon Carson MD PCP - General 08/10/03 07/21/09 Mingo Aldana MD PCP - General Family Practice 07/22/09 07/12/14 Shahida Sutton APRN FAMILY COURT JUSTICE PCP - General Nurse Practitioner 08/17/14 08/04/21 Shahida Sutton APRN FAMILY COURT JUSTICE PCP - Assigned PCP 07/12/14 05/07/18 Paula Reza MD [address] [facility] [address] [place] [address] PCP - General Internal Medicine 08/05/21 Shahida Sutton APRN FAMILY COURT JUSTICE Assigned PCP 07/12/14 09/30/21 Carolynn Ramon, KASIE Personal Advocate & Liaison (PAL) 12/17/18 08/07/21 [place] [address] [place] [address] Assigned Musculoskeletal Provider 12/26/19 08/21/20 Brady Lion MD Assigned Heart and Vascular Provider 12/26/19 08/14/20 Nima France PA-C [address] [facility] [address] [place] [address] Assigned Surgical Provider 05/19/20 08/21/20 Camille Chandler PA-C [address] [facility] [address] [place] [address] Assigned Neuroscience Provider 05/19/20 09/14/[address] JUSTICE [address] [place] [address] Assigned Heart and Vascular Provider 08/15/20 08/05/21 Nima France PA-C [address] [place] [address] Assigned Musculoskeletal Provider 08/22/20 11/13/20 Ilia Basilio Naik [address] [facility] [place] [address] Assigned Musculoskeletal Provider 11/14/20 12/04/20 Fawad York MD [address] [place], [place] [address] Assigned Musculoskeletal Provider 12/05/20 02/05/21 Roopa Almonte MD [address] [facility] [address] [place] [address] Endocrinology, Diabetes, and Metabolism 01/19/21 [place] [address] [facility] [address] [place] [address] Assigned Musculoskeletal Provider 02/06/21 09/16/21 Maryse Burton PAAna MariaC [address] [place] [address] Physician Data Entry Operator Dermatology 04/14/21 Marquita Starkey MD [address] [place] [address] Internal Medicine 05/06/21 05/06/21 Roopa Almonte MD [address] [place] [address] Hospitalist Endocrinology, Diabetes, and Metabolism 05/30/21 Griffin Joshi MD [address] [facility] [address] [place] [address] Cardiovascular Disease 07/25/21 Rina Magallon, RN Lead Street Light Inspector 07/29/21 07/11/22 Griffin Joshi MD [address] [facility] [address] [place] [address] Assigned Heart and Vascular Provider 08/06/21 10/07/21 Roopa Almonte MD [address] [facility] 200 [place], [place] [address] Assigned Endocrinology Provider 09/10/21 [place] [address] [facility] [place] [address] Assigned Musculoskeletal Provider 09/17/21 10/14/21 Lydia Bernstein PA-C [address] [facility] [address] [place] [address] Assigned PCP 10/01/21 10/21/21 Rosa Maria Love CHW Community Health Worker 10/06/21 [place] [address] [facility] [address] [place] [address] Assigned Musculoskeletal Provider 10/15/21 04/26/23 Paula Reza MD [address] [facility] [address] [place] [address] Assigned PCP 10/22/21 12/23/21 Keerthi Miner PHOTOGRAPHIC PROCESS SCREEN MAKER FAMILY COURT JUSTICE [address] [place] [address] Assigned Heart and Vascular Provider 10/08/21 02/10/22 Shahida Sutton [address]N FAMILY COURT JUSTICE Assigned PCP 12/24/21 03/24/[address]aels [address]N FAM[address] JUSTICE [address] [place] [address] Assigned Heart and Vascular Provider 02/11/22 05/12/22 Paula Reza MD [address] [facility] [address] [place] [address] Assigned PCP 03/25/22 04/07/22 Shahida Sutton [address]N FAMILY [address] JUSTICE [address] [place] [address] Assigned PCP 04/08/22 06/30/22 Daylin Ludwig EP [facility] [address] [place] [address] Cardiac Rehabilitation Therapist 05/16/23 Laurel Velasquez MD [address] [place] [address] Assigned Heart and Vascular Provider 05/13/22 06/30/22 Daylin Ludwig EP [facility] [address] [place] [address] Cardiac Rehabilitation Therapist 06/08/22 06/09/23 Paula Reza MD [address] [place] [address] Assigned PCP 07/01/22 07/07/[address]N [address] JUSTICE [address] [place] [address] Assigned Heart and Vascular Provider 07/01/22 07/07/22 Laurel Velasquez MD [address] [place] [address] Assigned Heart and Vascular Provider 07/08/22 08/04/22 Shahida Sutton [address]N FAMILY COURT JUSTICE Assigned PCP 07/08/22 09/08/[address] JUSTICE [address] [place] [address] Assigned Heart and Vascular Provider 08/05/22 Esha Dewitt MD [address] [place] [address] Gastroenterology 09/06/22 Heather Mosquera MD [address] [place] [address] Internal Medicine 09/06/22 Paula Reza MD [address] [place], [place] [address] Assigned PCP 09/09/22 01/05/23 Esha Dewitt MD [address] [place] [address] Assigned Gastroenterology Provider 09/23/22 Valdo Escamilla PA-C [address] [facility] [address] [place] [address] Assigned Neuroscience Provider 09/30/22 Nohelia Abarca PA-C [address] [place], [place] [id number] Physician Data Entry Operator Gastroenterology 10/03/22 Heather Mosquera MD [address] [facility] [address] [place], [place] [address] Assigned PCP 01/06/23 Fawad York MD [address] [place], [place] [address] Assigned Musculoskeletal Provider 04/27/23 06/25/23 documented as of this encounter
--- OUTSIDE RECORDS SUMMARY | 2023-12-25 08:20 | XMS_ITS | Encounter Summary ---
Author Organization [facility] Address [address] [place] [address] Care Team Providers Care Sales Representative Jewelry Name Role Phone Dixon Carson MD Primary Care Provider Mingo Aldana MD Primary Car e Provider Shahida Sutton FOOD AND NUTRITION SERVICES SUPERVISOR PLANER SETTER Primary Care Provi ford Unavailable Herman, Shahida Cummings APRN PLANER SETTER Unavailable Un available Herman, Shahida Cummings APRN PLANER SETTER Unavailable Un available Carolynn Ramon RN Unavailable [phone] Augustine Callaway MD Unavailable Brady Lion MD Unavailable Un available Nima FranceC Unavailable [phone] Camille Chandler PA-C Unavailable [phone] Anabela Barakat APRN PLANER SETTER Unavailable Nima FranceC Unavailable [phone] Basilio Morillo DO Unavailable [phone] Fawad Yokr MD Unavailable [phone] Roopa Almonte MD Unavailable [phone] Augustine Callaway MD Unavailable Maryse Burton PA-C Unavailable Marquita Starkey MD Unavailable Roopa Almonte MD Unavailable [phone] Grfifin Joshi MD Unavailable Rina Magallon RN Unavailable Paula Reza MD Primary Care Provider [phone] Griffin Joshi MD Unavailable Roopa Almonte MD Unavailable [facility] hospital[facility]ilio win DO Unavailable Lydia Bernstein PA-C Unavailable Rosa Maria Love Unavailable [phone] Augustine Callaway MD Unavailable Paula Reza MD Unavailable Keerthi Miner APRN PLANER SETTER Unavailable Herman, Shahida Cummings APRN PLANER SETTER Unavailable Un available Porsha Michaels APRN PLANER SETTER Unavailable [phone] Paula Reza MD Unavailable Herman, Shahida Cummings APRN PLANER SETTER Unavailable Un available Daylin Ludwig Unavailable [phone] Laurel Velasquez MD Unavailable Daylin Ludwig Unavailable [phone] Paula Reza MD Unavailable Porsha Michaels APRN PLANER SETTER Unavailable [phone] Laurel Velasquez MD Unavailable Herman, Shahida Cummings APRN PLANER SETTER Unavailable Un available Marilin Montaño PLANER SETTER Unavailable Esha Dewitt MD Unavailable [phone] Heather Mosquera MD Unavailable [phone] Paula Reza MD Unavailable Esha Dewitt MD Unavailable [phone] Ayserick Valdo Desouza PA-C Unavailable Nohelia AbarcaC Unavailable [phone] Heather Mosquera MD Unavailable Fawad York MD Unavailable [phone] Reason for Visit * Reason Onset Date Comments Refill Request 07/01/2009 topamax Encounter Details Date Type Department Care Team (Late st Contact Info) Description 07/01/2009 MyC Refill [address] [address] Dixon Carson MD [address] [address] Refill Request (topamax) Social History Tobacco Use [...] Cunningham - 07/02/2009 10:07 AM CDTMessage from [facility]: Mauro Terrell would like a refill of the following medications: TOPAMAX 25 MG OR TABS [Dixon Carson MD] Preferred pharmacy: [facility] Comment: documented in this encounter Plan of Treatment Not on file documented as of this encounter Visit Diagnoses Diagnosis Migraine headaches- Primary Migraine, unspecified, without mention of intractable migraine without mention of status migrainosus documented in this encounter Additional Health Concerns Infection Onset Date Last Indicated Resolved Time Rule Out COVID-19 02/15/2020 02/15/2020 02/16/2020 2:32 PM SOFTWARE DEVELOPMENT COORDINATOR Rule Out COVID-19 01/05/2021 01/05/2021 01/06/2021 12:57 PM CDT ESBL 01/05/2021 01/05/2021 Rule Out COVID-19 06/30/2021 06/30/2021 07/01/2021 9:34 AM CDT Rule Out COVID-19 07/25/2021 07/25/2021 07/25/2021 8:02 PM CDT documented as of this encounter Care Teams Sales Representative Jewelry Relationship Specialty Start Date End Date Dixon Carson MD PCP - General 08/10/03 07/21/09 Mingo Aldana MD PCP - General Family Practice 07/22/09 07/12/14 Shahida Sutton APRN PLANER SETTER PCP - General Nurse Practitioner 08/17/14 08/04/21 Shahida Sutton APRN PLANER SETTER PCP - Assigned PCP 07/12/14 05/07/18 Paula Reza MD [address] [facility] 200 [place] [address] PCP - General Internal Medicine 08/05/21 Shahida Sutton APRN PLANER SETTER Assigned PCP 07/12/14 09/30/21 Carolynn Ramon, KASIE Personal Advocate & Liaison (PAL) 12/17/18 08/07/21 [place] [address] [address] [facility] [address] [place] [address] Assigned Musculoskeletal Provider 12/26/19 08/21/20 Brady Lion MD Assigned Heart and Vascular Provider 12/26/19 08/14/20 Nima France PA-C 6545 [facility] [address] [place] [address] Assigned Surgical Provider 05/19/20 08/21/20 Camille Chandler PA-C 6545 [facility] [address] [place] [address] Assigned Neuroscience Provider 05/19/20 09/14/20 Anabela Barakat APRN PLANER SETTER [address]00 [place] [address] Assigned Heart and Vascular Provider 08/15/20 08/05/21 Nima France PA-C [address] [place] [address] Assigned Musculoskeletal Provider 08/22/20 11/13/20 [place] [address] [facility] [place] [address] Assigned Musculoskeletal Provider 11/14/20 12/04/20 Fawad York MD [address] [place], [place] [address] Assigned Musculoskeletal Provider 12/05/20 02/05/21 Roopa Almonte MD [address] [facility] [address] [address] [place] [address] Endocrinology, Diabetes, and Metabolism 01/19/21 [place] [address] [facility] [address] [address] [place] [address] Assigned Musculoskeletal Provider 02/06/21 09/16/21 Maryse Burton PA-C [address] [place] [address] Physician Felt Hat Flanging Operator Dermatology 04/14/21 Marquita Starkey MD [address] [place] [address] Internal Medicine 05/06/21 05/06/21 Roopa Almonte MD [address] [place] [address] Hospitalist Endocrinology, Diabetes, and Metabolism 05/30/21 Griffin Joshi MD [address] [facility] [address] [place] [address] Cardiovascular Disease 07/25/21 Rina Magallon, RN Lead Utility Plant Operative 07/29/21 07/11/22 Griffin Joshi MD [address] [facility] [address] [place] [address] Assigned Heart and Vascular Provider 08/06/21 10/07/21 Roopa Almonte MD [address] [place] [address] 200 [place], [place] [address] Assigned Endocrinology Provider 09/10/21 [place] [address] [facility] [place] [address] Assigned Musculoskeletal Provider 09/17/21 10/14/21 Lydia Bernstein PA-C [address] [facility] [address] [place] [address] Assigned PCP 10/01/21 10/21/21 Rosa Maria Love CHW Community Health Worker 10/06/21 [place] [address] [facility] [address] [place] [address] Assigned Musculoskeletal Provider 10/15/21 04/26/23 Paula Reza MD [address] [facility] [address] [place] [address] Assigned PCP 10/22/21 12/23/21 Keerthi Miner APRN PLANER SETTER [address] [place] [address] Assigned Heart and Vascular Provider 10/08/21 02/10/22 Shahida Sutton APRN PLANER SETTER Assigned PCP 12/24/21 03/24/22 Porsha Michaels FOOD AND NUTRITION SERVICES SUPERVISOR PLANER SETTER [address] [place] [address] Assigned Heart and Vascular Provider 02/11/22 05/12/22 Paula Reza MD [address] [facility] [address] [place] [address] Assigned PCP 03/25/22 04/07/22 Shahida Sutton APRN PLANER SETTER [address] [place] [address] Assigned PCP 04/08/22 06/30/22 Daylin Ludwig EP [facility] [address] [place] [address] Cardiac Rehabilitation Therapist 05/16/23 Laurel Velasquez MD [address] [place] [address] Assigned Heart and Vascular Provider 05/13/22 06/30/22 Daylin Ludwig EP [facility] [address] [place] [address] Cardiac Rehabilitation Therapist 06/08/22 06/09/23 Paula Reza MD [address] [place], [place] [address] Assigned PCP 07/01/22 07/07/22 Porsha Michaels APRN PLANER SETTER [address] [place] [address] Assigned Heart and Vascular Provider 07/01/22 07/07/22 Laurel Velasquez MD [address] [place], [place] [address] Assigned Heart and Vascular Provider 07/08/22 08/04/22 Shahida Sutton APRN PLANER SETTER Assigned PCP 07/08/22 09/08/22 Marilin Montaño, PLANER SETTER [address] [place] [address] Assigned Heart and Vascular Provider 08/05/22 Esha Dewitt MD [address] [place] [address] Gastroenterology 09/06/22 Heather Mosquera MD [address] [place] [address] Internal Medicine 09/06/22 Paula Reza MD [address] [place], [place] [address] Assigned PCP 09/09/22 01/05/23 Esha Dewitt MD [address] [place] [address] Assigned Gastroenterology Provider 09/23/22 Valdo Escamilla PA-C [address] [facility] [address] [place] [address] Assigned Neuroscience Provider 09/30/22 Nohelia Abarca PA-C [address] [place], [place] [address] Physician Felt Hat Flanging Operator Gastroenterology 10/03/22 Heather Mosquera MD 6545 [facility] 150 [place] [address] Assigned PCP 01/06/23 Fawad York MD [address] [place], [place] [address] Assigned Musculoskeletal Provider 04/27/23 06/25/23 documented as of this encounter
--- OUTSIDE RECORDS SUMMARY | 2023-12-25 08:20 | XMS_ITS | Encounter Summary ---
Author Organization [facility] Address [address] [place] [address] Care Team Providers Care General Repair Mechanic Name Role Phone Dixon Carson MD Primary Care Provider Mingo Aldana MD Primary Car e Provider Shahida Sutton SUPERVISOR ALUM PLANT SERVICE SUPERVISOR Primary Care Provi ford Unavailable Herman, Shahida Cummings APRN SERVICE SUPERVISOR Unavailable Un available Herman, Shahida Cummings APRN SERVICE SUPERVISOR Unavailable Un available Carolynn Ramon RN Unavailable [phone] Augustine Callaway MD Unavailable Brady Lion MD Unavailable Un available Nima FranceC Unavailable [phone] Camille Chandler PA-C Unavailable [phone] Anabela Barakat APRN SERVICE SUPERVISOR Unavailable Nima FranceC Unavailable [phone] Basilio Morillo DO Unavailable [phone] Fawad York MD Unavailable [phone] Roopa Almonte MD Unavailable [phone] Augustine Callaway MD Unavailable Maryse Burton [...] Reza MD Unavailable Keerthi Miner APRN SERVICE SUPERVISOR Unavailable Herman, Shahida Cummings APRN SERVICE SUPERVISOR Unavailable Un available Porsha Michaels APRN SERVICE SUPERVISOR Unavailable [phone] Paula Reza MD Unavailable Herman, Shahida Cummings APRN SERVICE SUPERVISOR Unavailable Un available Daylin Ludwig Unavailable [phone] Laurel Velasquez MD Unavailable Daylin Ludwig Unavailable [phone] Paula Reza MD Unavailable Porsha Michaels APRN SERVICE SUPERVISOR Unavailable [phone] Laurel Velasquez MD Unavailable Herman, Shahida Cummings APRN SERVICE SUPERVISOR Unavailable Un available Marilin Montaño SERVICE SUPERVISOR Unavailable Esha Dewitt MD Unavailable [phone] Heather Mosquera MD Unavailable Paula Reza MD Unavailable Esha Dewitt MD Unavailable [phone] Ayserick Valdo Desouza PA-C Unavailable [phone] Nohelia AbarcaC Unavailable [phone] Heather Mosquera MD Unavailable Fawad York MD Unavailable [phone] Reason for Visit * Reason Onset Date Comments Refill Request 09/25/2008 vicodin Encounter Details Date Type Department Care Team (Late st Contact Info) Description 09/25/2008 MyC Refill [address] [address] Dixon Carson MD [address] [address] Refill Request (vicodin) Social History Tobacco Use [...] for low back pain Date last filled: #[id number] (RX STATES #60/[place]) NOT A PSO FRANCO Nolasco RN * Telephone Encounter - Liliana Nolasco - 09/25/2008 10:03 AM CDTMessage [facility] Mauro Terrell would like a refill of the following medications: HYDROCODONE-ACETAMINOPHEN 10-325 MG OR TABS [Dixon Carson MD] Preferred pharmacy: [facility] Comment: Still dealing with daily debilitating headaches [...] Out COVID-19 02/15/2020 02/15/2020 02/16/2020 2:32 PM DOMAIN ARCHITECT Rule Out COVID-19 01/05/2021 01/05/2021 01/06/2021 12:57 PM CDT ESBL 01/05/2021 01/05/2021 Rule Out COVID-19 06/30/2021 06/30/2021 07/01/2021 9:34 AM CDT Rule Out COVID-19 07/25/2021 07/25/2021 07/25/2021 8:02 PM CDT documented as of this encounter Care Teams General Repair Mechanic Relationship Specialty Start Date End Date Dixon Carson MD PCP - General 08/10/03 07/21/09 Mingo Aldana MD PCP - General Family Practice 07/22/09 07/12/14 Shahida Sutton APRN SERVICE SUPERVISOR PCP - General Nurse Practitioner 08/17/14 08/04/21 Shahida Sutton APRN SERVICE SUPERVISOR PCP - Assigned PCP 07/12/14 05/07/18 Paula Reza MD [address] [facility] [address] [place] [address] PCP - General Internal Medicine 08/05/21 Shahida Sutton APRN SERVICE SUPERVISOR Assigned PCP 07/12/14 09/30/21 Carolynn Ramon RN Personal Advocate & Liaison (PAL) 12/17/18 08/07/21 [place] [address] [place] [address] Assigned Musculoskeletal Provider 12/26/19 08/21/20 Brady Lion MD Assigned Heart and Vascular Provider 12/26/19 08/14/20 Nima France PA-C [address] [facility] [address] [place] [address] Assigned Surgical Provider 05/19/20 08/21/20 Camille Chandler PA-C [address] [facility] S [facility] [address] [place] [address] Assigned Neuroscience Provider 05/19/20 09/14/20 Anabela Barakat APRN SERVICE SUPERVISOR [address] [place] [address] Assigned Heart and Vascular Provider 08/15/20 08/05/21 Nima France PA-C [address] [place] [address] Assigned Musculoskeletal Provider 08/22/20 11/13/20 [place] [address] [employer] [facility] [employer] [facility] [place] [address] Assigned Musculoskeletal Provider 11/14/20 12/04/20 Fawad York MD [address] [place] [address] Assigned Musculoskeletal Provider 12/05/20 02/05/21 Roopa Almonte MD [address] [facility] [address] [place] [address] Endocrinology, Diabetes, and Metabolism 01/19/21 [place] [address] [facility] [address] [place] [address] Assigned Musculoskeletal Provider 02/06/21 09/16/21 Maryse Burton PAAna MariaC [address] [place] [address] Physician Illuminator Dermatology 04/14/21 Marquita Starkey MD [address] [facility] [address] [place] [address] Internal Medicine 05/06/21 05/06/21 Roopa Almonte MD [address] [facility] [address] [place] [address] Hospitalist Endocrinology, Diabetes, and Metabolism 05/30/21 Griffin Joshi MD [address] [facility] [address] [place] [address] Cardiovascular Disease 07/25/21 Rina Magallon, RN Lead Ambulance Officer 07/29/21 07/11/22 Griffin Joshi MD [address] [place] [address] Assigned Heart and Vascular Provider 08/06/21 10/07/21 Roopa Almonte MD [address] [facility] [address] [place], [place] [address] Assigned Endocrinology Provider 09/10/21 [place] [address] [employer] [facility] [place] [id number] Assigned Musculoskeletal Provider 09/17/21 10/14/21 Lydia Bernstein PA-C [address] [place] [address] Assigned PCP 10/01/21 10/21/21 Rosa Maria Love CHW Community Health Worker 10/06/21 [place] [address] [address] [place] [address] Assigned Musculoskeletal Provider 10/15/21 04/26/23 Paula Reza MD [address] [facility] [address] [place] [address] Assigned PCP 10/22/21 12/23/21 Keerthi Miner APRN SERVICE SUPERVISOR [address] [place] [address] Assigned Heart and Vascular Provider 10/08/21 02/10/22 Shahida Sutton APRN SERVICE SUPERVISOR Assigned PCP 12/24/21 03/24/22 Porsha Michaels APRN SERVICE SUPERVISOR [address] [place] [address] Assigned Heart and Vascular Provider 02/11/22 05/12/22 Paula Reza MD [address] [place] [address] Assigned PCP 03/25/22 04/07/22 Shahida Sutton APRN SERVICE SUPERVISOR [address] [place] [address] Assigned PCP 04/08/22 06/30/22 Daylin Ludwig, EP [facility] [address] [place] [address] Cardiac Rehabilitation Therapist 05/16/23 Laurel Velasquez MD [address] [place] [address] Assigned Heart and Vascular Provider 05/13/22 06/30/22 Daylin Ludwig, MIKI [facility] [address] [place] [address] Cardiac Rehabilitation Therapist 06/08/22 06/09/23 Paula Reza MD [address] [place] [address] Assigned PCP 07/01/22 07/07/22 Porsha Michaels APRN SERVICE SUPERVISOR [address] [place] [address] Assigned Heart and Vascular Provider 07/01/22 07/07/22 Laurel Velasquez MD [address] [place] [address] Assigned Heart and Vascular Provider 07/08/22 08/04/22 Shahida Sutton APRN SERVICE SUPERVISOR Assigned PCP 07/08/22 09/08/22 Marilin Montaño, SERVICE SUPERVISOR [address] [place] [address] Assigned Heart and Vascular Provider 08/05/22 Esha Dewitt MD [address] [facility] [address] [place] [address] Gastroenterology 09/06/22 Heather Mosquera MD [address] [place] [address] Internal Medicine 09/06/22 Paula Reza MD [address] [facility] [address] [place], [place] [address] Assigned PCP 09/09/22 01/05/23 Esha Dewitt MD [address] [facility] 36 [place] [address] Assigned Gastroenterology Provider 09/23/22 Valdo Escamilla PA-C [address] [facility] [address] [place] [address] Assigned Neuroscience Provider 09/30/22 Nohelia Abarca PA-C [address] [facility] [place] [place] [address] Physician Illuminator Gastroenterology 10/03/22 Heather Mosquera MD [address] [place] [address] Assigned PCP 01/06/23 Fawad York MD [address] [place], [place] [address] Assigned Musculoskeletal Provider 04/27/23 06/25/23 documented as of this encounter
--- OUTSIDE RECORDS SUMMARY | 2023-12-25 08:20 | XMS_ITS | Encounter Summary ---
Author Organization [place] Address [address] [place] [address] Care Team Providers Care Citizenship Teacher Name Role Phone Dixon Carson MD Primary Care Provider Mingo Aldana MD Primary Car e Provider Shahida Sutton TRANSPORT AIDE PROFESSOR OF MATHEMATICS Primary Care Provi ford Unavailable Herman, Shahida Cummings APRN PROFESSOR OF MATHEMATICS Unavailable Un available Herman, Shahida Cummings APRN PROFESSOR OF MATHEMATICS Unavailable Un available Carolynn Ramon RN Unavailable [phone] Augustine Callaway MD Unavailable Brady Lion MD Unavailable Un available Nima FranceC Unavailable [phone] Camille Chandler PA-C Unavailable [phone] Anabela Barakat APRN PROFESSOR OF MATHEMATICS Unavailable Nima FranceC Unavailable [phone] Basilio Morillo DO Unavailable [phone] Fawad York MD Unavailable [phone] Roopa Almonte MD Unavailable [phone] Augustine Callaway MD Unavailable Maryse Burton [...] Paula Reza MD Unavailable Keerthi Miner APRN PROFESSOR OF MATHEMATICS Unavailable Herman, Shahida Cummings APRN PROFESSOR OF MATHEMATICS Unavailable Un available Porsha Michaels APRN PROFESSOR OF MATHEMATICS Unavailable [phone] Paula Reza MD Unavailable Herman, Shahida Cummings APRN PROFESSOR OF MATHEMATICS Unavailable Un available aDylin Ludwig Unavailable [phone] Laurel Velasquez MD Unavailable Daylin Ludwig Unavailable [phone] Paula Reza MD Unavailable Porsha Michaels APRN PROFESSOR OF MATHEMATICS Unavailable [phone] Laurel Velasquez MD Unavailable Herman, Shahida Cummings APRN PROFESSOR OF MATHEMATICS Unavailable Un available Marilin Montaño PROFESSOR OF MATHEMATICS Unavailable [phone] Esha Dewitt MD Unavailable [phone] Heather Mosquera MD Unavailable [phone] Paula Reza MD Unavailable Esha Dewitt MD Unavailable [phone] Valdo Escamilla PA-C Unavailable Nohelia Abarca PA-C Unavailable [phone] Heather Mosquera MD Unavailable Fawad York MD Unavailable Reason for Visit * Reason Onset Date Comments Pt. Information/instruction 11/12/2008 Rece nt discussion with Dr. Walker Encounter Details Date Type Department Care Team (Late st Contact Info) Description 11/12/2008 [facility] [address] [address] Dixon Carson MD [address] [id number] Pt. Information/instruct ion (Recent discus... Social History [...] Out COVID-19 02/15/2020 02/15/2020 02/16/2020 2:32 PM BACK GRINDER Rule Out COVID-19 01/05/2021 01/05/2021 01/06/2021 12:57 PM CDT ESBL 01/05/2021 01/05/2021 Rule Out COVID-19 06/30/2021 06/30/2021 07/01/2021 9:34 AM CDT Rule Out COVID-19 07/25/2021 07/25/2021 07/25/2021 8:02 PM CDT documented as of this encounter Care Teams Citizenship Teacher Relationship Specialty Start Date End Date Dixon Carson MD PCP - General 08/10/03 07/21/09 Mingo Aldana MD PCP - General Family Practice 07/22/09 07/12/14 Shahida Sutton APRN PROFESSOR OF MATHEMATICS PCP - General Nurse Practitioner 08/17/14 08/04/21 Shahida Sutton APRN PROFESSOR OF MATHEMATICS PCP - Assigned PCP 07/12/14 05/07/18 Paula Reza MD [address] [facility] [address] [place] [address] PCP - General Internal Medicine 08/05/21 Shahida Sutton APRN PROFESSOR OF MATHEMATICS Assigned PCP 07/12/14 09/30/21 Carolynn Ramon, KASIE Personal Advocate & Liaison (PAL) 12/17/18 08/07/21 [place] [address] [place] [address] Assigned Musculoskeletal Provider 12/26/19 08/21/20 Brady Lion MD Assigned Heart and Vascular Provider 12/26/19 08/14/20 Nima France PA-C [address] [facility] [address] [place] [address] Assigned Surgical Provider 05/19/20 08/21/20 Camille Chandler PA-C [address] [facility] [address] [place] [address] Assigned Neuroscience Provider 05/19/20 09/14/20 Anabela Barakat APRN PROFESSOR OF MATHEMATICS [address] [place] [address] Assigned Heart and Vascular Provider 08/15/20 08/05/21 Nima France PA-C [address] [facility] [address] [place] [address] Assigned Musculoskeletal Provider 08/22/20 11/13/20 [place] [address] [place] [address] Assigned Musculoskeletal Provider 11/14/20 12/04/20 Fawad York MD [address] [place] [address] Assigned Musculoskeletal Provider 12/05/20 02/05/21 Roopa Almonte MD [address] [facility] [address] [place] [address] Endocrinology, Diabetes, and Metabolism 01/19/21 [place] [address] [facility] [address] [place] [address] Assigned Musculoskeletal Provider 02/06/21 09/16/21 Maryse Burton PA-C [address] [facility] [place] [address] Physician Instant Printer Operator Dermatology 04/14/21 Marquita Starkey MD [address] [facility] [address] [place] [address] Internal Medicine 05/06/21 05/06/21 Roopa Almonte MD [address] [facility] [address] [place] [address] Hospitalist Endocrinology, Diabetes, and Metabolism 05/30/21 Griffin Joshi MD [address] [facility] [address] [place] [address] Cardiovascular Disease 07/25/21 Rina Magallon, RN Lead Manual Control Auger Press Operator 07/29/21 07/11/22 Griffin Joshi MD [address] [facility] [place] [address] Assigned Heart and Vascular Provider 08/06/21 10/07/21 Roopa Almonte MD [address] [facility] 200 [place], [place] [address] Assigned Endocrinology Provider 09/10/21 [place] [address] [facility] [place] [address] Assigned Musculoskeletal Provider 09/17/21 10/14/21 Lydia Bernstein PA-C [address] [place] [address] Assigned PCP 10/01/21 10/21/21 Rosa Maria Love Cristina Community Health Worker 10/06/21 [place] [address] [place], [place] [address] Assigned Musculoskeletal Provider 10/15/21 04/26/23 Paula Reza MD [address] [facility] [address] [place] [address] Assigned PCP 10/22/21 12/23/21 Keerthi Miner APRN PROFESSOR OF MATHEMATICS [address] [place] [address] Assigned Heart and Vascular Provider 10/08/21 02/10/22 Shahida Sutton APRN PROFESSOR OF MATHEMATICS Assigned PCP 12/24/21 03/24/22 Porsha Michaels APRN PROFESSOR OF MATHEMATICS [address] [place] [address] Assigned Heart and Vascular Provider 02/11/22 05/12/22 Paula Reza MD [address] [facility] [address] [place] [address] Assigned PCP 03/25/22 04/07/22 Shahida Sutton APRN PROFESSOR OF MATHEMATICS [address] [place] [address] Assigned PCP 04/08/22 06/30/22 Daylin Ludwig, MIKI [facility] [address] [place] [address] Cardiac Rehabilitation Therapist 05/16/23 Laurel Velasquez MD [address] [place] [address] Assigned Heart and Vascular Provider 05/13/22 06/30/22 Daylin Ludwig, MIKI [facility] [address] [place] [address] Cardiac Rehabilitation Therapist 06/08/22 06/09/23 Paula Reza MD [address] [facility] 200 [place] [address] Assigned PCP 07/01/22 07/07/22 Porsha Michaels APRN PROFESSOR OF MATHEMATICS [address] [place] [address] Assigned Heart and Vascular Provider 07/01/22 07/07/22 Laurel Velasquez MD [address] [place] [address] Assigned Heart and Vascular Provider 07/08/22 08/04/22 Shahida Sutton APRN PROFESSOR OF MATHEMATICS Assigned PCP 07/08/22 09/08/22 Marilin Montaño, PROFESSOR OF MATHEMATICS [address] [place] [address] Assigned Heart and Vascular Provider 08/05/22 Esha Dewitt MD [address] [address] Gastroenterology 09/06/22 Heather Mosquera MD [address] [place], [place] [address] Internal Medicine 09/06/22 Paula Reza MD [address] [facility] [address] [place], [place] [address] Assigned PCP 09/09/22 01/05/23 Esha Dewitt MD [address] [address] Assigned Gastroenterology Provider 09/23/22 Valdo Escamilla PA-C 6[address] [facility] [address] [place], [place] [address] Assigned Neuroscience Provider 09/30/22 Nohelia Abarca PA-C [address] [place], [place] [address] Physician Instant Printer Operator Gastroenterology 10/03/22 Heather Mosquera MD [address] [place], [place] [address] Assigned PCP 01/06/23 Fawad York MD [address] [place], [place] [address] Assigned Musculoskeletal Provider 04/27/23 06/25/23 documented as of this encounter
--- OUTSIDE RECORDS SUMMARY | 2023-12-25 08:20 | XMS_ITS | Encounter Summary ---
Author Organization [facility] Address [address] [place] [address] Care Team Providers Care Art Conservator Name Role Phone Dixon Carson MD Primary Care Provider Mingo Aldana MD Primary Car e Provider Shahida Sutton RADIATOR REPAIRER DEPUTY HARBORMASTER Primary Care Provi ford Unavailable Herman, Shahida Cummings APRN DEPUTY HARBORMASTER Unavailable Un available Herman, Shahida Cummings APRN DEPUTY HARBORMASTER Unavailable Un available Carolynn Ramon RN Unavailable [phone] Augustine Callaway MD Unavailable Brady Lion MD Unavailable Un available Nima FranceC Unavailable [phone] Camille Chandler PA-C Unavailable [phone] Anabela Barakat APRN DEPUTY HARBORMASTER Unavailable Nima FranceC Unavailable [phone] Basilio Morillo DO Unavailable [phone] Fawad York MD Unavailable [phone] Roopa Almonte MD Unavailable [phone] Augustine Callaway MD Unavailable Maryse Burton [...] Paula Reza MD Unavailable Keerthi Miner APRN DEPUTY HARBORMASTER Unavailable Herman, Shahida Cummings APRN DEPUTY HARBORMASTER Unavailable Un available Porsha Michaels APRN DEPUTY HARBORMASTER Unavailable [phone] Paula Reza MD Unavailable Herman, Shahida Cummings APRN DEPUTY HARBORMASTER Unavailable Un available Daylin Ludwig Unavailable [phone] Laurel Velasquez MD Unavailable Daylin Ludwig Unavailable [phone] Paula Reza MD Unavailable Porsha Michaels APRN DEPUTY HARBORMASTER Unavailable [phone] Laurel Velasquez MD Unavailable Herman, Shahida Cummings APRN DEPUTY HARBORMASTER Unavailable Un available Marilin Montaño DEPUTY HARBORMASTER Unavailable Esha Dewitt MD Unavailable [phone] Heather Mosquera MD Unavailable Paula Reza MD Unavailable Esha Dewitt MD Unavailable [phone] Andi Valdo Desouza PA-C Unavailable Nohelia AbarcaC Unavailable [phone] Heather Mosquera MD Unavailable Fawad York MD Unavailable [phone] Encounter Details Date Type Department Care Team [...] at once, please submit to [facility]. I can be contact by phone at [phone] Please rx medications, pharmacy t'd up. Please notify patient when done. Either mychart or via phone. Re-route to [facility] when [place] is done. Thank you. Porsha Marley CERTIFIED GENETIC COUNSELOR documented in this encounter Plan of Treatment Not on file documented as of this encounter Visit Diagnoses Diagnosis DIABETES UNCOMPL ADULT-TYPE II- Primary Type II or unspecified type diabetes mellitus without mention of complication, not stated as uncontrolled documented in this encounter Additional Health Concerns Infection Onset Date Last Indicated Resolved Time Rule Out COVID-19 02/15/2020 02/15/2020 02/16/2020 2:32 PM PREFITTER DOORS Rule Out COVID-19 01/05/2021 01/05/2021 01/06/2021 12:57 PM CDT ESBL 01/05/2021 01/05/2021 Rule Out COVID-19 06/30/2021 06/30/2021 07/01/2021 9:34 AM CDT Rule Out COVID-19 07/25/2021 07/25/2021 07/25/2021 8:02 PM CDT documented as of this encounter Care Teams Art Conservator Relationship Specialty Start Date End Date Dixon Carson MD PCP - General 08/10/03 07/21/09 Mingo Aldana MD PCP - General Family Practice 07/22/09 07/12/14 Shahida Sutton APRN DEPUTY HARBORMASTER PCP - General Nurse Practitioner 08/17/14 08/04/21 Shahida Sutton APRN DEPUTY HARBORMASTER PCP - Assigned PCP 07/12/14 05/07/18 Paula Reza MD [address] [address] PCP - General Internal Medicine 08/05/21 Shahida Sutton APRN DEPUTY HARBORMASTER Assigned PCP 07/12/14 09/30/21 Carolynn Ramon, KASIE Personal Advocate & Liaison (PAL) 12/17/18 08/07/21 [place] [address] [place] [address] Assigned Musculoskeletal Provider 12/26/19 08/21/20 Brady Lion MD Assigned Heart and Vascular Provider 12/26/19 08/14/20 Nima France PA-C [address] [place] [address] Assigned Surgical Provider 05/19/20 08/21/20 Camille Chandler PA-C [address] [facility] [address] [place] [address] Assigned Neuroscience Provider 05/19/20 09/14/20 Anabela Barakat APRN CNP [address] [place] [address] Assigned Heart and Vascular Provider 08/15/20 08/05/21 Nima France PA-C [address] [facility] [address] [place], [place] [address] Assigned Musculoskeletal Provider 08/22/20 11/13/20 [place] [address] [facility] [place] [address] Assigned Musculoskeletal Provider 11/14/20 12/04/20 Fawad York MD [address] [place] [address] Assigned Musculoskeletal Provider 12/05/20 02/05/21 Roopa Almonte MD [address] [facility] 200 [place] [address] Endocrinology, Diabetes, and Metabolism 01/19/21 [place] [address] [facility] [address] [place] [address] Assigned Musculoskeletal Provider 02/06/21 09/16/21 Maryse Burton PA-C [address] [place] [address] Physician Estimator And Drafter Dermatology 04/14/21 Marquita Starkey MD [address] [facility] 200 [place] [address] Internal Medicine 05/06/21 05/06/21 Roopa Almonte MD [address] [facility] 200 [place] [address] Hospitalist Endocrinology, Diabetes, and Metabolism 05/30/21 Griffin Joshi MD [address] [place] [address] Cardiovascular Disease 07/25/21 Rina Magallon, RN Lead Rn Medicare 07/29/21 07/11/22 Griffin Joshi MD [address] [place] [address] Assigned Heart and Vascular Provider 08/06/21 10/07/21 Roopa Almonte MD [address] [place] [address] 200 [place] [address] Assigned Endocrinology Provider 09/10/21 [place] [address] [facility] [place] [address] Assigned Musculoskeletal Provider 09/17/21 10/14/21 Lydia Bernstein PA-C [address] [place] [id number] Assigned PCP 10/01/21 10/21/21 Rosa Maria Love [facility] Community Health Worker 10/06/21 [place] [address] [facility] [address] [place], [place] [address] Assigned Musculoskeletal Provider 10/15/21 04/26/23 Paula Reza MD [address] [facility] [address] [place], [place] [address] Assigned PCP 10/22/21 12/23/21 Keerthi Miner APRN DEPUTY HARBORMASTER [address] [place] [address] Assigned Heart and Vascular Provider 10/08/21 02/10/22 Shahida Sutton APRN DEPUTY HARBORMASTER Assigned PCP 12/24/21 03/24/22 Porsha Michaels APRN DEPUTY HARBORMASTER [address] [place] [address] Assigned Heart and Vascular Provider 02/11/22 05/12/22 Paula Reza MD [address] [place], [place] [address] Assigned PCP 03/25/22 04/07/22 Shahida Sutton APRN DEPUTY HARBORMASTER [address] [place] [address] Assigned PCP 04/08/22 06/30/22 Daylin Ludwig EP [facility] [address] [place] [address] Cardiac Rehabilitation Therapist 05/16/23 Laurel Velasquez MD [address] [place] [address] Assigned Heart and Vascular Provider 05/13/22 06/30/22 Daylin Ludwig, MIKI [facility] [address] [place] [address] Cardiac Rehabilitation Therapist 06/08/22 06/09/23 Paula Reza MD [address] [place], [place] [address] Assigned PCP 07/01/22 07/07/22 Porsha Michaels APRN DEPUTY HARBORMASTER [address] [place] [address] Assigned Heart and Vascular Provider 07/01/22 07/07/22 Laurel Velasquez MD [address] [place], [place] [address] Assigned Heart and Vascular Provider 07/08/22 08/04/22 Shahida Sutton RADIATOR REPAIRER DEPUTY HARBORMASTER Assigned PCP 07/08/22 09/08/22 Marilin Montaño, DEPUTY HARBORMASTER [address] [place] [address] Assigned Heart and Vascular Provider 08/05/22 Esha Dewitt MD [address] [address] Gastroenterology 09/06/22 Heather Mosquera MD [address] [place] [address] Internal Medicine 09/06/22 Paula Reza MD [address] [facility] 200 [place] [address] Assigned PCP 09/09/22 01/05/23 Esha Dewitt MD [address] [place] [address] Assigned Gastroenterology Provider 09/23/22 Valdo Escamilla PA-C [address] [facility] [address] [place] [address] Assigned Neuroscience Provider 09/30/22 Nohelia Abarca PA-C [address] [place], [place] [address] Physician Estimator And Drafter Gastroenterology 10/03/22 Heather Mosquera MD [address] [address] Assigned PCP 01/06/23 Fawad York MD [address] [place], [place] [address] Assigned Musculoskeletal Provider 04/27/23 06/25/23 documented as of this encounter
--- OUTSIDE RECORDS SUMMARY | 2023-12-25 08:20 | XMS_ITS | Encounter Summary ---
Author Organization [facility] Address [address] [place] [address] Care Team Providers Care Straightedge 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 Helper Name Role Phone Dixon Carson MD Primary Care Provider Mingo Aldana MD Primary Car e Provider Shahida Sutton UNCLAIMED PROPERTY MANAGER BANDMILL OPERATOR Primary Care Provi ford Unavailable Herman, Shahida Cummings APRN BANDMILL OPERATOR Unavailable Un available Herman, Shahida Cummings APRN BANDMILL OPERATOR Unavailable Un available Carolynn Ramon RN Unavailable [phone] Augustine Callaway MD Unavailable Brady Lion MD Unavailable Un available Nima FranceC Unavailable [phone] Camille Chandler PA-C Unavailable [phone] Anabela Barakat APRN BANDMILL OPERATOR Unavailable Nima FranceC Unavailable [phone] Basilio Morillo DO Unavailable [phone] Fawad York MD Unavailable [phone] Roopa Almonte MD Unavailable [phone] Augustine Callaway MD Unavailable Maryse Burton [...] Paula Reza MD Unavailable Keerthi Miner APRN BANDMILL OPERATOR Unavailable Herman, Shahida Cummings APRN BANDMILL OPERATOR Unavailable Un available Porsha Michaels APRN BANDMILL OPERATOR Unavailable [phone] Paula Reza MD Unavailable Herman, Shahida Cummings APRN BANDMILL OPERATOR Unavailable Un available Daylin Ludwig Unavailable [phone] Laurel Velasquez MD Unavailable Daylin Ludwig Unavailable [phone] Paula Reza MD Unavailable Porsha Michaels APRN BANDMILL OPERATOR Unavailable [phone] Laurel Velasquez MD Unavailable Herman, Shahida Cummings APRN BANDMILL OPERATOR Unavailable Un available Marilin Montaño BANDMILL OPERATOR Unavailable Esha Dewitt MD Unavailable [phone] Heather Mosquera MD Unavailable Paula Reza MD Unavailable Esha Dewitt MD Unavailable [phone] Ayserick Valdo Desouza PA-C Unavailable Nohelia AbarcaC Unavailable [phone] Heather Mosquera MD Unavailable Fawad York MD Unavailable [phone] Reason for Visit * Reason Onset Date Comments Refill Request 08/28/2008 hydrocodone Encounter Details Date Type Department Care Team (Late st Contact Info) Description 08/28/2008 MyC Refill [address] [address] Dixon Carson MD [address] [address] Refill Request (hydrocodone) Social History Tobacco Use [...] Jones - 08/28/2008 3:08 PM [facility] Terrell would like a refill of the following medications: HYDROCODONE-ACETAMINOPHEN 10-325 MG OR TABS [Dixon Carson MD] Preferred pharmacy: [facility] Comment: Daily headaches continuing documented in this [...] Out COVID-19 02/15/2020 02/15/2020 02/16/2020 2:32 PM DOPE DRY HOUSE OPERATOR Rule Out COVID-19 01/05/2021 01/05/2021 01/06/2021 12:57 PM CDT ESBL 01/05/2021 01/05/2021 Rule Out COVID-19 06/30/2021 06/30/2021 07/01/2021 9:34 AM CDT Rule Out COVID-19 07/25/2021 07/25/2021 07/25/2021 8:02 PM CDT documented as of this encounter Care Teams Straightedge 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 Helper Relationship Specialty Start Date End Date Dixon Carson MD PCP - General 08/10/03 07/21/09 Mingo Aldana MD PCP - General Family Practice 07/22/09 07/12/14 Shahida Sutton APRN BANDMILL OPERATOR PCP - General Nurse Practitioner 08/17/14 08/04/21 Shahida Sutton APRN BANDMILL OPERATOR PCP - Assigned PCP 07/12/14 05/07/18 Paula Reza MD [address] [place] [phone] (Work) PCP - General Internal Medicine 08/05/21 Shahida Sutton APRN BANDMILL OPERATOR Assigned PCP 07/12/14 09/30/21 Carolynn Ramon, KASIE Personal Advocate & Liaison (PAL) 12/17/18 08/07/21 [place] [address] [address] [place] [address] Assigned Musculoskeletal Provider 12/26/19 08/21/20 Brady Lion MD Assigned Heart and Vascular Provider 12/26/19 08/14/20 Nima France PA-C [address] [facility] [address] [place] [address] Assigned Surgical Provider 05/19/20 08/21/20 Camille Chandler PA-C [address] [facility] [address] [place] [address] Assigned Neuroscience Provider 05/19/20 09/14/20 Anabela Barakat APRN BANDMILL OPERATOR [address] [place] [address] Assigned Heart and Vascular Provider 08/15/20 08/05/21 Nima France PA-C [address] [facility] [address] [place] [address] Assigned Musculoskeletal Provider 08/22/20 11/13/20 [place] [address] [facility] [place] [address] Assigned Musculoskeletal Provider 11/14/20 12/04/20 Fawad York MD [address] [place], [place] [address] Assigned Musculoskeletal Provider 12/05/20 02/05/21 Roopa Almonte MD [address] [facility] 200 [place] [address] Endocrinology, Diabetes, and Metabolism 01/19/21 [place] [address] [facility] [address] [place] [address] Assigned Musculoskeletal Provider 02/06/21 09/16/21 Maryse Burton PAAna MariaC [address] [place] [address] Physician Mainspring Reverse Winder Dermatology 04/14/21 Marquita Starkey MD [address] [facility] [address] [place] [address] Internal Medicine 05/06/21 05/06/21 Roopa Almonte MD [address] [facility] [address] [place] [address] Hospitalist Endocrinology, Diabetes, and Metabolism 05/30/21 Griffin Joshi MD [address] [facility] [address] [place] [address] Cardiovascular Disease 07/25/21 Rina Magallon, RN Lead Offset Pressman 07/29/21 07/11/22 Griffin Joshi MD [address] [place] [address] Assigned Heart and Vascular Provider 08/06/21 10/07/21 Roopa Almonte MD [address] [facility] [address] [place], [place] [address] Assigned Endocrinology Provider 09/10/21 [place] [address] [facility] [place] [address] Assigned Musculoskeletal Provider 09/17/21 10/14/21 Lydia Bernstein, TRACEY [address] [place] [address] Assigned PCP 10/01/21 10/21/21 Rosa Maria Love [facility] Community Health Worker 10/06/21 [place] [address] [facility] [address] [place] [address] Assigned Musculoskeletal Provider 10/15/21 04/26/23 Paula Reza MD [address] [facility] [address] [place], [place] [address] Assigned PCP 10/22/21 12/23/21 Keerthi Miner APRN BANDMILL OPERATOR [address] [place] [address] Assigned Heart and Vascular Provider 10/08/21 02/10/22 Shahida Sutton APRN BANDMILL OPERATOR Assigned PCP 12/24/21 03/24/22 Porsha Michaels APRN BANDMILL OPERATOR [address] [place] [address] Assigned Heart and Vascular Provider 02/11/22 05/12/22 Paula Reza MD [address] [place] [address] Assigned PCP 03/25/22 04/07/22 Shahida Sutton APRN BANDMILL OPERATOR [address] [place] [address] Assigned PCP 04/08/22 06/30/22 Daylin Ludwig, EP [facility] [address] [place] [address] Cardiac Rehabilitation Therapist 05/16/23 Laurel Velasquez MD [address] [place] [address] Assigned Heart and Vascular Provider 05/13/22 06/30/22 Daylin Ludwig, EP [facility] [address] [place] [address] Cardiac Rehabilitation Therapist 06/08/22 06/09/23 Paula Reza MD [address] [place] [address] Assigned PCP 07/01/22 07/07/22 Porsha Michaels APRN BANDMILL OPERATOR [address] [place] [address] Assigned Heart and Vascular Provider 07/01/22 07/07/22 Laurel Velasquez MD [address] [place] [address] Assigned Heart and Vascular Provider 07/08/22 08/04/22 Shahida Sutton, UNCLAIMED PROPERTY MANAGER BANDMILL OPERATOR Assigned PCP 07/08/22 09/08/22 Marilin Montaño, BANDMILL OPERATOR [address] [place] [address] Assigned Heart and Vascular Provider 08/05/22 Esha Dewitt MD [address] [place] [address] Gastroenterology 09/06/22 Heather Mosquera MD [address] [place] [address] Internal Medicine 09/06/22 Paula Reza MD [address] [facility] 200 [place], [place] [address] Assigned PCP 09/09/22 01/05/23 Esha Dewitt MD [address] [address] Assigned Gastroenterology Provider 09/23/22 Valdo Escamilla PA-C [address] [place] [address] Assigned Neuroscience Provider 09/30/22 Nohelia Abarca PA-C [address]50 [place] [address] Physician Mainspring Reverse Winder Gastroenterology 10/03/22 Heather Mosquera MD 6545 [facility] 150 [place], [place] [address] Assigned PCP 01/06/23 Fawad York MD [address] [place] [address] Assigned Musculoskeletal Provider 04/27/23 06/25/23 documented as of this encounter
--- OUTSIDE RECORDS SUMMARY | 2023-12-25 08:20 | XMS_ITS | Encounter Summary ---
Author Organization [place] Address [address] [place] [address] Care Team Providers Care Elevator Service Technician Name Role Phone Dixon Carson MD Primary Care Provider Mingo Aldana MD Primary Car e Provider Shahida Sutton GREASE MACHINE WORKER MANAGER ADVERTISING Primary Care Provi ford Unavailable Herman, Shahida Cummings APRN MANAGER ADVERTISING Unavailable Un available Herman, Shahida Cummings APRN MANAGER ADVERTISING Unavailable Un available Carolynn Ramon RN Unavailable [phone] Augustine Callaway MD Unavailable Brady Lion MD Unavailable Un available Nima FranceC Unavailable [phone] Camille Chandler PA-C Unavailable [phone] Anabela Barakat APRN MANAGER ADVERTISING Unavailable Nima FranceC Unavailable [phone] Basilio Morillo DO Unavailable [phone] Fawad York MD Unavailable [phone] Roopa Almonte MD Unavailable [phone] Augustine Callaway MD Unavailable Maryse Burton [...] Reza MD Unavailable Keerthi Miner APRN MANAGER ADVERTISING Unavailable Herman, Shahida Cummings APRN MANAGER ADVERTISING Unavailable Un available Porsha Michaels APRN MANAGER ADVERTISING Unavailable [phone] Paula Reza MD Unavailable Herman, Shahida Cummings APRN MANAGER ADVERTISING Unavailable Un available Daylin Ludwig Unavailable [phone] Laurel Velasquez MD Unavailable Daylin Ludwig Unavailable [phone] Paula Reza MD Unavailable Porsha Michaels APRN MANAGER ADVERTISING Unavailable [phone] Laurel Velasquez MD Unavailable Herman, Shahida Cummings APRN MANAGER ADVERTISING Unavailable Un available Marilin Montaño MANAGER ADVERTISING Unavailable Esha Dewitt MD Unavailable [phone] Heather Mosquera MD Unavailable [phone] Paula Reza MD Unavailable Esha Dewitt MD Unavailable [phone] Valdo Escamilla Deo PAAna MariaC Unavailable [phone] Nohelia AbarcaC Unavailable [phone] Heather Mosquera MD Unavailable Fawda York MD Unavailable Reason for Visit * Reason Onset Date Comments Refill Request 02/03/2008 Rickie Cohen Encounter Details Date Type Department Care Team (Late st Contact Info) Description 02/02/2008 MyC Refill [address] [address] Dixon Carson MD [address] [address] Refill Request (Rickie Cohen) Social History Tobacco [...] Last Filled: 01/07/08 #30 Sonia Dodd RN. T DOCTOR * Telephone Encounter - Sonia Dodd - 02/03/2008 9:06 AM CSTMessage from MyChart: Original authorizing provider: Dixon Terrell would like a refill of the following medications: AMBIEN 10 MG OR TABS [Dixon Carson MD] Preferred pharmacy: [facility] Comment: T DOCTOR documented in this encounter Plan of Treatment Not on file documented as of this encounter Visit Diagnoses Diagnosis Insomnia with sleep apnea, unspecified documented in this encounter Additional Health Concerns Infection Onset Date Last Indicated Resolved Time Rule Out COVID-19 02/15/2020 02/15/2020 02/16/2020 2:32 PM HEART DOCTOR Rule Out COVID-19 01/05/2021 01/05/2021 01/06/2021 12:57 PM CDT ESBL 01/05/2021 01/05/2021 Rule Out COVID-19 06/30/2021 06/30/2021 07/01/2021 9:34 AM CDT Rule Out COVID-19 07/25/2021 07/25/2021 07/25/2021 8:02 PM CDT documented as of this encounter Care Teams Elevator Service Technician Relationship Specialty Start Date End Date Dixon Carson MD PCP - General 08/10/03 07/21/09 Mingo Aldana MD PCP - General Family Practice 07/22/09 07/12/14 Shahida Sutton APRN MANAGER ADVERTISING PCP - General Nurse Practitioner 08/17/14 08/04/21 Shahida Sutton APRN MANAGER ADVERTISING PCP - Assigned PCP 07/12/14 05/07/18 Paula Reza MD [address] [address] PCP - General Internal Medicine 08/05/21 Shahida Sutton APRN MANAGER ADVERTISING Assigned PCP 07/12/14 09/30/21 Carolynn Ramon, KASIE Personal Advocate & Liaison (PAL) 12/17/18 08/07/21 [place] [address] [place] [address] Assigned Musculoskeletal Provider 12/26/19 08/21/20 Brady Lion MD Assigned Heart and Vascular Provider 12/26/19 08/14/20 Nima France PA-C [address] [facility] [address] [place] [address] Assigned Surgical Provider 05/19/20 08/21/20 Camille Chandler PA-C [address] [facility] S [facility] [address] [place] [address] Assigned Neuroscience Provider 05/19/20 09/14/20 Anabela Barakat APRN MANAGER ADVERTISING [address] [place] [address] Assigned Heart and Vascular Provider 08/15/20 08/05/21 Nima France PA-C [address] [facility] [address] [place] [address] Assigned Musculoskeletal Provider 08/22/20 11/13/20 [place] [address] [facility] [place] [address] Assigned Musculoskeletal Provider 11/14/20 12/04/20 Fawad York MD [address] [place] [address] Assigned Musculoskeletal Provider 12/05/20 02/05/21 Roopa Almonte MD [address] [facility] 200 [place] [address] Endocrinology, Diabetes, and Metabolism 01/19/21 [place] [address] [facility] [address] [place] [address] Assigned Musculoskeletal Provider 02/06/21 09/16/21 Maryse Burton, PA-C [address] [place] [address] Physician Account Manager Forest [employer] Dermatology 04/14/21 Marquita Starkey MD [address] [facility] [address] [place] [address] Internal Medicine 05/06/21 05/06/21 Roopa Almonte MD [address] [facility] 200 [place] [address] Hospitalist Endocrinology, Diabetes, and Metabolism 05/30/21 Griffin Joshi MD [address] [facility] [address] [place] [address] Cardiovascular Disease 07/25/21 Rina Magallon, RN Lead Interior Assemblies Installer 07/29/21 07/11/22 Griffin Joshi MD [address] [place] [address] Assigned Heart and Vascular Provider 08/06/21 10/07/21 Roopa Almonte MD [address] [facility] [address] [place], [place] [address] Assigned Endocrinology Provider 09/10/21 [place] [address] [facility] [place] [address] Assigned Musculoskeletal Provider 09/17/21 10/14/21 Lydia Bernstein, TRACEY [address] [place] [address] Assigned PCP 10/01/21 10/21/21 Rosa Maria Love CHW Community Health Worker 10/06/21 [place] [address] [facility] [address] [place] [address] Assigned Musculoskeletal Provider 10/15/21 04/26/23 Paula Reza MD [address] [place], [place] [address] Assigned PCP 10/22/21 12/23/21 Keerthi Miner APRN MANAGER ADVERTISING [address] [place] [address] Assigned Heart and Vascular Provider 10/08/21 02/10/22 Shahida Sutton APRN MANAGER ADVERTISING Assigned PCP 12/24/21 03/24/22 Porsha Michaels APRN MANAGER ADVERTISING [address] [place] [address] Assigned Heart and Vascular Provider 02/11/22 05/12/22 Paula Reza MD [address] [place] [address] Assigned PCP 03/25/22 04/07/22 Shahida Sutton APRN MANAGER ADVERTISING [address] [place] [address] Assigned PCP 04/08/22 06/30/22 Daylin Ludwig EP [facility] [address] [place] [address] Cardiac Rehabilitation Therapist 05/16/23 Laurel Velasquez MD [address] [place] [address] Assigned Heart and Vascular Provider 05/13/22 06/30/22 Daylin Ludwig, EP [facility] [address] [place] [address] Cardiac Rehabilitation Therapist 06/08/22 06/09/23 Paula Reza MD [address] [place] [address] Assigned PCP 07/01/22 07/07/22 Porsha Michaels APRN MANAGER ADVERTISING [address] [place] [address] Assigned Heart and Vascular Provider 07/01/22 07/07/22 Laurel Velasquez MD [address] [place] [address] Assigned Heart and Vascular Provider 07/08/22 08/04/22 Shahida Sutton, GREASE MACHINE WORKER MANAGER ADVERTISING Assigned PCP 07/08/22 09/08/22 Marilin Montaño, MANAGER ADVERTISING [address] [place] [address] Assigned Heart and Vascular Provider 08/05/22 Esha Dewitt MD [address] [place] [address] Gastroenterology 09/06/22 Heather Mosquera MD [address] [place] [address] Internal Medicine 09/06/22 Paula Reza MD [address] [facility] [address] [place], [place] [address] Assigned PCP 09/09/22 01/05/23 Esha Dewitt MD [address] [place] [id number] Assigned Gastroenterology Provider 09/23/22 Valdo Escamilla PA-C [address] [place] [address] Assigned Neuroscience Provider 09/30/22 Nohelia Abarca PA-C [address] [place], [place] [address] Physician Account Manager [employer] Gastroenterology 10/03/22 Heather Mosquera MD [address] [facility] 150 [place], [place] [address] Assigned PCP 01/06/23 Fawad York MD [address] [place], [place] [address] Assigned Musculoskeletal Provider 04/27/23 06/25/23 documented as of this encounter
--- OUTSIDE RECORDS SUMMARY | 2023-12-25 08:20 | XMS_ITS | Encounter Summary ---
Author Organization [facility] Address [address] [place] [address] Care Team Providers Care Clay Press Operator Name Role Phone Dixon Carson MD Primary Care Provider Mingo Aldana MD Primary Car e Provider Shahida Sutton INSTRUMENT PROCESSING TECH YARN HAULER Primary Care Provi ford Unavailable Herman, Shahida Cummings APRN YARN HAULER Unavailable Un available Herman, Shahida Cummings APRN YARN HAULER Unavailable Un available Carolynn Ramon RN Unavailable [phone] Augustine Callaway MD Unavailable Brady Lion MD Unavailable Un available Nima FranceC Unavailable [phone] Camille Chandler PA-C Unavailable [phone] Anabela Barakat APRN YARN HAULER Unavailable Nima FranceC Unavailable [phone] Basilio Morillo DO Unavailable [phone] Fawad York MD Unavailable [phone] Roopa Almonte MD Unavailable [phone] Augustine Callaway MD Unavailable Maryse Burton [...] Paula Reza MD Unavailable Keerthi Miner APRN YARN HAULER Unavailable Herman, Shahida Cummings APRN YARN HAULER Unavailable Un available Porsha Michaels APRN YARN HAULER Unavailable [phone] Paula Reza MD Unavailable Hemran, Shahida Cummings APRN YARN HAULER Unavailable Un available Daylin Ludwig Unavailable [phone] Laurel Velasquez MD Unavailable Daylin Ludwig Unavailable [phone] Paula Reza MD Unavailable Porsha Michaels APRN YARN HAULER Unavailable [phone] Laurel Velasquez MD Unavailable Herman, Shahida Cummings APRN YARN HAULER Unavailable Un available Marilin Montaño YARN HAULER Unavailable Esha Dewitt MD Unavailable [phone] Heather Mosquera MD Unavailable [phone] Paula Reza MD Unavailable Esha Dewitt MD Unavailable [phone] Ayserick Valdo Desouza PA-C Unavailable Nohelia Abarca PA-C Unavailable [phone] Heather Mosquera MD Unavailable [phone] Fawad York MD Unavailable Reason for Visit * Reason Onset Date Comments Refill Request 03/09/2009 Encounter Details Date Type Department Care Team (Late st Contact Info) Description 03/09/2009 MyC Valorie M [address] [address] Dixon Carson MD [address] [address] Refill Request Social History Tobacco Use Types [...] week, then 2 bid. Will route to OR for signing. Brigida Hyatt RN NG MACHINE TENDER * Telephone Encounter - EdmarBrigida - 03/09/2009 2:57 PM CSTMessage from [facility]: Mauro Terrell would like a refill of the following medications: TOPAMAX 25 MG OR TABS [Dixon Carsno MD] Preferred pharmacy: [facility] Comment: I [facility], but at the time I didn't realize I didn't have any refills. In any case, I am now completely out and haven't heard anything and hope to get this approved as soon as possible NG MACHINE TENDER documented in this encounter Plan of Treatment Not on file documented as of this encounter Visit Diagnoses Diagnosis Migraine headaches- Primary Migraine, unspecified, without mention of intractable migraine without mention of status migrainosus documented in this encounter Additional Health Concerns Infection Onset Date Last Indicated Resolved Time Rule Out COVID-19 02/15/2020 02/15/2020 02/16/2020 2:32 PM MIXING MACHINE TENDER Rule Out COVID-19 01/05/2021 01/05/2021 01/06/2021 12:57 PM CDT ESBL 01/05/2021 01/05/2021 Rule Out COVID-19 06/30/2021 06/30/2021 07/01/2021 9:34 AM CDT Rule Out COVID-19 07/25/2021 07/25/2021 07/25/2021 8:02 PM CDT documented as of this encounter Care Teams Clay Press Operator Relationship Specialty Start Date End Date Dixon Carson MD PCP - General 08/10/03 07/21/09 Mingo Aldana MD PCP - General Family Practice 07/22/09 07/12/14 Shahida Sutton APRN YARN HAULER PCP - General Nurse Practitioner 08/17/14 08/04/21 Shahida Sutton APRN YARN HAULER PCP - Assigned PCP 07/12/14 05/07/18 Paula Reza MD [address] [facility] [address] [place] [address] PCP - General Internal Medicine 08/05/21 Shahida Sutton APRN YARN HAULER Assigned PCP 07/12/14 09/30/21 Carolynn Ramon RN Personal Advocate & Liaison (PAL) 12/17/18 08/07/21 [place] [address] [place] [address] Assigned Musculoskeletal Provider 12/26/19 08/21/20 Brady Lion MD Assigned Heart and Vascular Provider 12/26/19 08/14/20 Nima France PA-C [address] [place] [address] Assigned Surgical Provider 05/19/20 08/21/20 Camille Chandler PA-C [address] [facility] [address] [place] [address] Assigned Neuroscience Provider 05/19/20 09/14/20 Anabela Barakat APRN YARN HAULER [address] [place] [address] Assigned Heart and Vascular Provider 08/15/20 08/05/21 Nima France PA-C [address] [place] [address] Assigned Musculoskeletal Provider 08/22/20 11/13/20 [place] [address] [facility] [place] [address] Assigned Musculoskeletal Provider 11/14/20 12/04/20 Fawad York MD [address] [place] [address] Assigned Musculoskeletal Provider 12/05/20 02/05/21 Roopa Almonte MD [address] [facility] [address] [place], [place] [address] Endocrinology, Diabetes, and Metabolism 01/19/21 [place] [address] [facility] [address] [place] [address] Assigned Musculoskeletal Provider 02/06/21 09/16/21 Maryse Burton, PA-C [address] [place] [address] Physician Healthcare Applications Analyst Dermatology 04/14/21 Marquita Starkey MD [address] [facility] [address] [place] [address] Internal Medicine 05/06/21 05/06/21 Roopa Almonte MD [address] [facility] [address] [place] [address] Hospitalist Endocrinology, Diabetes, and Metabolism 05/30/21 Griffin Joshi MD [address] [facility] [address] [place] [address] Cardiovascular Disease 07/25/21 Rina Magallon, RN Lead Chemist Internship 07/29/21 07/11/22 Griffin Joshi MD [address] [place] [address] Assigned Heart and Vascular Provider 08/06/21 10/07/21 Roopa Almonte MD [address] [facility] [address] [place], [place] [address] Assigned Endocrinology Provider 09/10/21 [place] [address] [facility] [place] [address] Assigned Musculoskeletal Provider 09/17/21 10/14/21 Lydia Bernstein, TRACEY [address] [place] [address] Assigned PCP 10/01/21 10/21/21 Rosa Maria Love CHW Community Health Worker 10/06/21 [place] [address] [address] [place] [address] Assigned Musculoskeletal Provider 10/15/21 04/26/23 Paula Reza MD [address] [facility] [address] [place] [address] Assigned PCP 10/22/21 12/23/21 Keerthi Miner APRN YARN HAULER [address] [place] [address] Assigned Heart and Vascular Provider 10/08/21 02/10/22 Shahida Sutton APRN YARN HAULER Assigned PCP 12/24/21 03/24/22 Porsha Michaels APRN YARN HAULER [address] [place] [address] Assigned Heart and Vascular Provider 02/11/22 05/12/22 Paula Reza MD [address] [place] [address] Assigned PCP 03/25/22 04/07/22 Shahida Sutton APRN YARN HAULER [address] [place] [address] Assigned PCP 04/08/22 06/30/22 Daylin Ludwig, EP [facility] [address] [place] [address] Cardiac Rehabilitation Therapist 05/16/23 Laurel Velasquez MD [address] [place] [address] Assigned Heart and Vascular Provider 05/13/22 06/30/22 Daylin Ludwig, EP [facility] [address] [place] [address] Cardiac Rehabilitation Therapist 06/08/22 06/09/23 Paula Reza MD [address] [place] [address] Assigned PCP 07/01/22 07/07/22 Porsha Michaels APRN YARN HAULER [address] [place] [address] Assigned Heart and Vascular Provider 07/01/22 07/07/22 Laurel Velasquez MD [address] [place] [address] Assigned Heart and Vascular Provider 07/08/22 08/04/22 Shahida Sutton APRN YARN HAULER Assigned PCP 07/08/22 09/08/22 Marilin Montaño, YARN HAULER [address] [place] [address] Assigned Heart and Vascular Provider 08/05/22 Esha Dewitt MD [address] [facility] 36 [place] [address] Gastroenterology 09/06/22 Heather Mosquera MD [address] [place] [address] Internal Medicine 09/06/22 Paula Reza MD [address] [facility] [address] [place], [place] [address] Assigned PCP 09/09/22 01/05/23 Esha Dewitt MD [address] [facility] 36 [place] [address] Assigned Gastroenterology Provider 09/23/22 Valdo Escamilla PA-C [address] [facility] [address] [place] [address] Assigned Neuroscience Provider 09/30/22 Nohelia Abarca PA-C [address] [place], [place] [address] Physician Healthcare Applications Analyst Gastroenterology 10/03/22 Heather Mosquera MD [address] [facility] [address] [facility] [address] [place] [address] Assigned PCP 01/06/23 Fawad York MD [address] [place], [place] [address] Assigned Musculoskeletal Provider 04/27/23 06/25/23 documented as of this encounter
--- OUTSIDE RECORDS SUMMARY | 2023-12-25 08:20 | XMS_ITS | Encounter Summary ---
Author Organization [facility] Address [address] [place] [address] Care Team Providers Care Overedge 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 Name Role Phone Dixon Carson MD Primary Care Provider Mingo Aldana MD Primary Car e Provider Shahida Sutton [employer] RETAIL ROUTE SUPERVISOR Primary Care Provi ford Unavailable Herman, Shahida Cummings APRN RETAIL ROUTE SUPERVISOR Unavailable Un available Herman, Shahida Cummings APRN RETAIL ROUTE SUPERVISOR Unavailable Un available Carolynn Ramon RN Unavailable [phone] Augustine Callaway MD Unavailable Brady Lion MD Unavailable Un available Nima FranceC Unavailable [phone] Camille Chandler PA-C Unavailable [phone] Anabela Barakat APRN RETAIL ROUTE SUPERVISOR Unavailable Nima FranceC Unavailable [phone] Basilio Morillo DO Unavailable [phone] Fawad York MD Unavailable [phone] Roopa Almonte MD Unavailable [phone] Augustine Callaway MD Unavailable Maryse Burton PA-C Unavailable Maqruita Starkey MD Unavailable Roopa Almonte MD Unavailable [phone] Griffin Joshi MD Unavailable Rina Magallon RN Unavailable Paula Reza MD Primary Care Provider [phone] Griffin Joshi MD Unavailable Roopa Almonte MD Unavailable [facility] win DO Unavailable Lydia Bernstein PA-C Unavailable Rosa Maria Love Unavailable [phone] Augustine Callaway MD Unavailable Paula Reza MD Unavailable Keerthi Miner APRN RETAIL ROUTE SUPERVISOR Unavailable Herman, Shahida Cummings APRN RETAIL ROUTE SUPERVISOR Unavailable Un available Porsha Michaels APRN RETAIL ROUTE SUPERVISOR Unavailable [phone] Paula Reza MD Unavailable Herman, Shahida Cummings APRN RETAIL ROUTE SUPERVISOR Unavailable Un available Daylin Ludwig Unavailable [phone] Laurel Velasquez MD Unavailable Daylin Ludwig Unavailable [phone] Paula Reza MD Unavailable Porsha Michaels APRN RETAIL ROUTE SUPERVISOR Unavailable [phone] Laurel Velasquez MD Unavailable Herman, Shahida Cummings APRN RETAIL ROUTE SUPERVISOR Unavailable Un available Marilin Montaño RETAIL ROUTE SUPERVISOR Unavailable Esha Dewitt MD Unavailable [phone] Heather Mosquera MD Unavailable [phone] Paula Reza MD Unavailable Esha Dewitt MD Unavailable [phone] Valdo Escamilla PA-C Unavailable [phone] Nohelia AbarcaC Unavailable [phone] Heather Mosquera MD Unavailable [phone] Fawad York MD Unavailable [phone] Reason for Visit * Reason Onset Date Comments Refill Request 04/15/2008 Ambien Encounter Details Date Type Department Care Team (Late st Contact Info) Description 04/14/2008 MyC Refill [address] [id number] Dixon Carson MD [address] [address] Refill Request (Rickie) Social History Tobacco Use [...] Last filled was 03/09/08 Elizabeth Piña RN MAKER * Telephone Encounter - Elizabeth Piña - 04/15/2008 8:14 AM CSTMessage from MyChart: Original authorizing provider: Dixon Terrell would like a refill of the following medications: AMBIEN 10 MG OR TABS [Dixon Carson MD] Preferred pharmacy: [facility] Comment: MAKER documented in this encounter Plan of Treatment Not on file documented as of this encounter Visit Diagnoses Diagnosis Insomnia with sleep apnea, unspecified documented in this encounter Additional Health Concerns Infection Onset Date Last Indicated Resolved Time Rule Out COVID-19 02/15/2020 02/15/2020 02/16/2020 2:32 PM PEN MAKER Rule Out COVID-19 01/05/2021 01/05/2021 01/06/2021 12:57 PM CDT ESBL 01/05/2021 01/05/2021 Rule Out COVID-19 06/30/2021 06/30/2021 07/01/2021 9:34 AM CDT Rule Out COVID-19 07/25/2021 07/25/2021 07/25/2021 8:02 PM CDT documented as of this encounter Care Teams Overedge 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 Relationship Specialty Start Date End Date Dixon Carson MD PCP - General 08/10/03 07/21/09 Mingo Aldana MD PCP - General Family Practice 07/22/09 07/12/14 Shahida Sutton APRN RETAIL ROUTE SUPERVISOR PCP - General Nurse Practitioner 08/17/14 08/04/21 Shahida Sutton APRN RETAIL ROUTE SUPERVISOR PCP - Assigned PCP 07/12/14 05/07/18 Paula Reza MD [address] [address] PCP - General Internal Medicine 08/05/21 Shahida Sutton APRN RETAIL ROUTE SUPERVISOR Assigned PCP 07/12/14 09/30/21 Carolynn Ramon RN Personal Advocate & Liaison (PAL) 12/17/18 08/07/21 [place] [address] [facility] [address] [place] [address] Assigned Musculoskeletal Provider 12/26/19 08/21/20 Brady Lion MD Assigned Heart and Vascular Provider 12/26/19 08/14/20 Nima France PA-C [address] [facility] [address] [place] [address] Assigned Surgical Provider 05/19/20 08/21/20 Camille [place] PA-C [address] [facility] [address] [place] [address] Assigned Neuroscience Provider 05/19/20 09/14/20 Anabela Barakat APRN RETAIL ROUTE SUPERVISOR [address] [place] [address] Assigned Heart and Vascular Provider 08/15/20 08/05/21 Nima France PA-C [address] [facility] S [facility] [address] [place] [address] Assigned Musculoskeletal Provider 08/22/20 11/13/20 [place] [address] [place] [address] Assigned Musculoskeletal Provider 11/14/20 12/04/20 Fawad York MD [address] [place] [address] Assigned Musculoskeletal Provider 12/05/20 02/05/21 Roopa Almonte MD [address] [facility] [address] [place] [address] Endocrinology, Diabetes, and Metabolism 01/19/21 [place] [address] [facility] [address] [place] [address] Assigned Musculoskeletal Provider 02/06/21 09/16/21 Maryse Burton PA-C [address] [place] [address] Physician Irrigation Laborer Dermatology 04/14/21 Marquita Starkey MD [address] [facility] [address] [place] [address] Internal Medicine 05/06/21 05/06/21 Roopa Almonte MD [address] [facility] [address] [place] [address] Hospitalist Endocrinology, Diabetes, and Metabolism 05/30/21 Griffin Joshi MD [address] [facility] [address] [place] [address] Cardiovascular Disease 07/25/21 Rina Magallon, RN Lead Craps Manager 07/29/21 07/11/22 Griffin Joshi MD [address] [place] [address] Assigned Heart and Vascular Provider 08/06/21 10/07/21 Roopa Almonte MD [address] [address] [place], [place] [address] Assigned Endocrinology Provider 09/10/21 [place] [address] [facility] [place] [address] Assigned Musculoskeletal Provider 09/17/21 10/14/21 Lydia Bernstein, HUYC [address] [place] [address] Assigned PCP 10/01/21 10/21/21 Rosa Maria Love Cristina Community Health Worker 10/06/21 [place] [address] [facility] [address] [place] [address] Assigned Musculoskeletal Provider 10/15/21 04/26/23 Paula Reza MD [address] [place] [address] Assigned PCP 10/22/21 12/23/21 Keerthi Miner APRN RETAIL ROUTE SUPERVISOR [address] [place] [address] Assigned Heart and Vascular Provider 10/08/21 02/10/22 Shahida Sutton APRN RETAIL ROUTE SUPERVISOR Assigned PCP 12/24/21 03/24/22 Porsha Michaels APRN RETAIL ROUTE SUPERVISOR [address] [address] Assigned Heart and Vascular Provider 02/11/22 05/12/22 Paula Reza MD [address] [place] [address] Assigned PCP 03/25/22 04/07/22 Shahida Sutton APRN RETAIL ROUTE SUPERVISOR [address] [place] [address] Assigned PCP 04/08/22 06/30/22 Daylin Ludwig, EP [facility] [address] [address] Cardiac Rehabilitation Therapist 05/16/23 Laurel Velasquez MD [address] [place] [address] Assigned Heart and Vascular Provider 05/13/22 06/30/22 Daylin Ludwig, EP [facility] [address] [place] [address] Cardiac Rehabilitation Therapist 06/08/22 06/09/23 Paula Reza MD [address] [place] [address] Assigned PCP 07/01/22 07/07/22 Porsha Michaels APRN RETAIL ROUTE SUPERVISOR [address] [address] Assigned Heart and Vascular Provider 07/01/22 07/07/22 Laurel Velasquez MD [address] [place] [address] Assigned Heart and Vascular Provider 07/08/22 08/04/22 Shahida Sutton APRN RETAIL ROUTE SUPERVISOR Assigned PCP 07/08/22 09/08/22 Marilin Montaño, RETAIL ROUTE SUPERVISOR [address] [place] [address] Assigned Heart and Vascular Provider 08/05/22 Esha Dewitt MD [address] [facility] 36 [place], [place] [address] Gastroenterology 09/06/22 Heather Mosquera MD [address] [place] [address] Internal Medicine 09/06/22 Paula Reza MD [address] [facility] [address] [place] [address] Assigned PCP 09/09/22 01/05/23 Esha Dewitt MD 420 [facility] 36 [place], [place] [address] Assigned Gastroenterology Provider 09/23/22 Valdo Escamilla PA-C [address] [place] [address] Assigned Neuroscience Provider 09/30/22 Nohelia Abarca PA-C [address] [place] [address] Physician Irrigation Laborer Gastroenterology 10/03/22 Heather Mosquera MD [address]45 [facility] [address] [place], [place] [address] Assigned PCP 01/06/23 Fawad York MD [address] [place], [place] [address] Assigned Musculoskeletal Provider 04/27/23 06/25/23 documented as of this encounter
--- OUTSIDE RECORDS SUMMARY | 2023-12-25 08:20 | XMS_ITS | Encounter Summary ---
Author Organization [facility] Address [address] [place] [address] Care Team Providers Care Network Announcer Name Role Phone Dixon Carson MD Primary Care Provider Mingo Aldana MD Primary Car e Provider Shahida Sutton TIRE BUILDER OPERATOR HUMAN RESOURCES SERVICES SPECIALIST Primary Care Provi ford Unavailable Herman, Shahida Cummings APRN HUMAN RESOURCES SERVICES SPECIALIST Unavailable Un available Herman, Shahida Cummings APRN HUMAN RESOURCES SERVICES SPECIALIST Unavailable Un available Carolynn Ramon RN Unavailable [phone] Augustine Callaway MD Unavailable Brady Lion MD Unavailable Un available Nima FranceC Unavailable [phone] Camille [place] PA-C Unavailable [phone] Anabela Barakat APRN HUMAN RESOURCES SERVICES SPECIALIST Unavailable Nima FranceC Unavailable [phone] Basilio Morillo DO Unavailable [phone] Fawad York MD Unavailable [phone] Roopa Almonte MD Unavailable [phone] Augustine Callaway MD Unavailable Maryse Burton [...] Paula Reza MD Unavailable Keerthi Miner APRN HUMAN RESOURCES SERVICES SPECIALIST Unavailable Herman, Shahida Cummings APRN HUMAN RESOURCES SERVICES SPECIALIST Unavailable Un available Porsha Michaels APRN HUMAN RESOURCES SERVICES SPECIALIST Unavailable [phone] Paula Reza MD Unavailable Herman, Shahida Cummings APRN HUMAN RESOURCES SERVICES SPECIALIST Unavailable Un available Daylin Ludwig Unavailable [phone] Laurel Velasquez MD Unavailable Daylin Ludwig Unavailable [phone] Paula Reza MD Unavailable Porsha Michaels APRN HUMAN RESOURCES SERVICES SPECIALIST Unavailable [phone] Laurel Velasquez MD Unavailable Herman, Shahida Cummings APRN HUMAN RESOURCES SERVICES SPECIALIST Unavailable Un available Marilin Montaño HUMAN RESOURCES SERVICES SPECIALIST Unavailable [phone] Esha Dewitt MD Unavailable [phone] Heather Mosquera MD Unavailable Paula Reza MD Unavailable Esha Dewitt MD Unavailable [phone] Valdo Escamilla PA-C Unavailable Nohelia Abarca-C Unavailable [phone] Heather Mosquera MD Unavailable [phone] Fawad York MD Unavailable [phone] Encounter Details Date Type Department Care Team [...] Out COVID-19 02/15/2020 02/15/2020 02/16/2020 2:32 PM LINE PATROLLER Rule Out COVID-19 01/05/2021 01/05/2021 01/06/2021 12:57 PM CDT ESBL 01/05/2021 01/05/2021 Rule Out COVID-19 06/30/2021 06/30/2021 07/01/2021 9:34 AM CDT Rule Out COVID-19 07/25/2021 07/25/2021 07/25/2021 8:02 PM CDT documented as of this encounter Care Teams Network Announcer Relationship Specialty Start Date End Date Dixon Carson MD PCP - General 08/10/03 07/21/09 Mingo Aldana MD PCP - General Family Practice 07/22/09 07/12/14 Shahida Sutton APRN HUMAN RESOURCES SERVICES SPECIALIST PCP - General Nurse Practitioner 08/17/14 08/04/21 Shahida Sutton APRN HUMAN RESOURCES SERVICES SPECIALIST PCP - Assigned PCP 07/12/14 05/07/18 Paula Reza MD [address] [place] [address] PCP - General Internal Medicine 08/05/21 Shahida Sutton APRN HUMAN RESOURCES SERVICES SPECIALIST Assigned PCP 07/12/14 09/30/21 Carolynn Ramon, KASIE Personal Advocate & Liaison (PAL) 12/17/18 08/07/21 [place] [address] [place] [address] Assigned Musculoskeletal Provider 12/26/19 08/21/20 Brady Lion MD Assigned Heart and Vascular Provider 12/26/19 08/14/20 Nima France PA-C [address] [place] [address] Assigned Surgical Provider 05/19/20 08/21/20 Camille [place] PA-C [address] [place] [address] Assigned Neuroscience Provider 05/19/20 09/14/20 Anabela Barakat APRN CNP [address] [place] [address] Assigned Heart and Vascular Provider 08/15/20 08/05/21 Nima France PA-C 6545 [facility] [address] [place] [address] Assigned Musculoskeletal Provider 08/22/20 11/13/20 [place] [address] [place] [address] Assigned Musculoskeletal Provider 11/14/20 12/04/20 Fawad York MD [address] [place], [place] [address] Assigned Musculoskeletal Provider 12/05/20 02/05/21 Roopa Almonte MD [address] [facility] 200 [place] [address] Endocrinology, Diabetes, and Metabolism 01/19/21 [place] [address] [facility] 300 [place] [address] Assigned Musculoskeletal Provider 02/06/21 09/16/21 Maryse Burton PA-C [address] [place] [address] Physician Pot Press Operator Dermatology 04/14/21 Marquita Starkey MD [address] [facility] [address] [place] [address] Internal Medicine 05/06/21 05/06/21 Roopa Almonte MD [address] [facility] 200 [place] [address] Hospitalist Endocrinology, Diabetes, and Metabolism 05/30/21 Griffin Joshi MD [address] [place] [address] Cardiovascular Disease 07/25/21 Rina Magallon RN Lead Shear Assembler 07/29/21 07/11/22 Griffin Joshi MD [address] [place] [address] Assigned Heart and Vascular Provider 08/06/21 10/07/21 Roopa Almonte MD [address] [place] [address] 200 [place], [place] [address] Assigned Endocrinology Provider 09/10/21 [place] [address] [facility] [place] [address] Assigned Musculoskeletal Provider 09/17/21 10/14/21 Lydia Bernstein PA-C [address] [place] [address] Assigned PCP 10/01/21 10/21/21 Rosa Maria Love CHW Community Health Worker 10/06/21 [place] [address] [place] [address] Assigned Musculoskeletal Provider 10/15/21 04/26/23 Paula Reza MD [address] [place] [address] Assigned PCP 10/22/21 12/23/21 Keerthi Miner APRN HUMAN RESOURCES SERVICES SPECIALIST [address] [place] [address] Assigned Heart and Vascular Provider 10/08/21 02/10/22 Shahida Sutton APRN HUMAN RESOURCES SERVICES SPECIALIST Assigned PCP 12/24/21 03/24/22 Porsha Michaels APRN HUMAN RESOURCES SERVICES SPECIALIST [address] [address] Assigned Heart and Vascular Provider 02/11/22 05/12/22 Paula Reza MD [address] [place] [address] Assigned PCP 03/25/22 04/07/22 Shahida Sutton APRN HUMAN RESOURCES SERVICES SPECIALIST [address] [address] Assigned PCP 04/08/22 06/30/22 Daylin Ludwig EP [facility] [address] [address] Cardiac Rehabilitation Therapist 05/16/23 Laurel Velasquez MD [address] [address] Assigned Heart and Vascular Provider 05/13/22 06/30/22 Daylin Ludwig EP [facility] [address] [place] [address] Cardiac Rehabilitation Therapist 06/08/22 06/09/23 Paula Reza MD [address] [facility] [address] [place] [address] Assigned PCP 07/01/22 07/07/22 Porsha Michaels APRN HUMAN RESOURCES SERVICES SPECIALIST [address] [place] [address] Assigned Heart and Vascular Provider 07/01/22 07/07/22 Laurel Velasquez MD [address] [place] [address] Assigned Heart and Vascular Provider 07/08/22 08/04/22 Shahida Sutton APRN HUMAN RESOURCES SERVICES SPECIALIST Assigned PCP 07/08/22 09/08/22 Marilin Montaño, HUMAN RESOURCES SERVICES SPECIALIST [address] [place] [address] Assigned Heart and Vascular Provider 08/05/22 Esha Dewitt MD [address] [place] [address] 36 [place], [place] [address] Gastroenterology 09/06/22 Heather Mosquera MD [address] [place] [address] Internal Medicine 09/06/22 Paula Reza MD [address] [facility] 200 [place], [place] [address] Assigned PCP 09/09/22 01/05/23 Esha Dewitt MD 420 [facility] 36 [place], [place] [address] Assigned Gastroenterology Provider 09/23/22 Valdo Escamilla PA-C [address] [facility] [address] [address] [place], [place] [address] Assigned Neuroscience Provider 09/30/22 Nohelia Abarca PA-C [address] [place], [place] [address] Physician Pot Press Operator Gastroenterology 10/03/22 Heather Mosquera MD [address]45 [facility] 150 [place], [place] [address] Assigned PCP 01/06/23 Fawad York MD [address] [place], [place] [address] Assigned Musculoskeletal Provider 04/27/23 06/25/23 documented as of this encounter
--- OUTSIDE RECORDS SUMMARY | 2023-12-25 08:21 | XMS_ITS | Encounter Summary ---
Author Organization [facility] Address [address] [place] [address] Care Team Providers Care Mutual Fund Manager Name Role Phone Dixon Carson MD Primary Care Provider Mingo Aldana MD Primary Car e Provider Shahida Sutton TAXI DRIVER CUSTOMER MANAGEMENT SPECIALIST Primary Care Provi ford Unavailable Herman, Shahida Cummings APRN CUSTOMER MANAGEMENT SPECIALIST Unavailable Un available Herman, Shahida Cummings APRN CUSTOMER MANAGEMENT SPECIALIST Unavailable Un available Carolynn Ramon RN Unavailable [phone] Augustine Callaway MD Unavailable Brady Lion MD Unavailable Un available Nima FranceC Unavailable [phone] Camille Chandler PA-C Unavailable [phone] Anabela Barakat APRN CUSTOMER MANAGEMENT SPECIALIST Unavailable Nima FranceC Unavailable [phone] Basilio Morillo DO Unavailable [phone] Fawad York MD Unavailable [phone] Roopa Almonte MD Unavailable [phone] Augustine Callaway MD Unavailable Maryse Burton [...] Reza MD Unavailable Keerthi Miner APRN CUSTOMER MANAGEMENT SPECIALIST Unavailable Herman, Shahida Cummings APRN CUSTOMER MANAGEMENT SPECIALIST Unavailable Un available Porsha Michaels APRN CUSTOMER MANAGEMENT SPECIALIST Unavailable [phone] Paula Reza MD Unavailable Herman, Shahida Cummings APRN CUSTOMER MANAGEMENT SPECIALIST Unavailable Un available Daylin Ludwig Unavailable [phone] Laurel Velasquez MD Unavailable Daylin Ludwig Unavailable [phone] Paula Reza MD Unavailable Porsha Michaels APRN CUSTOMER MANAGEMENT SPECIALIST Unavailable [phone] Laurel Velasquez MD Unavailable Herman, Shahida Cummings APRN CUSTOMER MANAGEMENT SPECIALIST Unavailable Un available Marilin Montaño CUSTOMER MANAGEMENT SPECIALIST Unavailable Esha Dewitt MD Unavailable [phone] Heather Mosquera MD Unavailable Paula Reza MD Unavailable Esha Dewitt MD Unavailable [phone] Valdo Escamilla PA-C Unavailable Nohelia Abarca-C Unavailable [phone] Heather Mosquera MD Unavailable [phone] Fawad York MD Unavailable [phone] Encounter Details Date Type Department Care Team (Late st Contact Info) Description 05/07/[address] [id number] [facility] Social History Tobacco Use Types Packs/Day Years [...] Out COVID-19 02/15/2020 02/15/2020 02/16/2020 2:32 PM POTATO SORTER Rule Out COVID-19 01/05/2021 01/05/2021 01/06/2021 12:57 PM CDT ESBL 01/05/2021 01/05/2021 Rule Out COVID-19 06/30/2021 06/30/2021 07/01/2021 9:34 AM CDT Rule Out COVID-19 07/25/2021 07/25/2021 07/25/2021 8:02 PM CDT documented as of this encounter Care Teams Mutual Fund Manager Relationship Specialty Start Date End Date Dixon Carson MD PCP - General 08/10/03 07/21/09 Mingo Aldana MD PCP - General Family Practice 07/22/09 07/12/14 Shahida Sutton APRN CUSTOMER MANAGEMENT SPECIALIST PCP - General Nurse Practitioner 08/17/14 08/04/21 Shahida Sutton APRN CUSTOMER MANAGEMENT SPECIALIST PCP - Assigned PCP 07/12/14 05/07/18 Paula Reza MD [address] [place], [place] [address] PCP - General Internal Medicine 08/05/21 Shahida Sutton APRN CUSTOMER MANAGEMENT SPECIALIST Assigned PCP 07/12/14 09/30/21 Carolynn Ramon, KASIE Personal Advocate & Liaison (PAL) 12/17/18 08/07/21 [place] [address] [place], [place] [address] Assigned Musculoskeletal Provider 12/26/19 08/21/20 Brady Lion MD Assigned Heart and Vascular Provider 12/26/19 08/14/20 Nima France PA-C [address] [place] [address] Assigned Surgical Provider 05/19/20 08/21/20 Camille Chandler PA-C [address] [facility] [address] [place] [address] Assigned Neuroscience Provider 05/19/20 09/14/20 Anabela Barakat APRN CNP [address] [place] [address] Assigned Heart and Vascular Provider 08/15/20 08/05/21 Nima France PA-C 6545 [facility] 450 [place] [address] Assigned Musculoskeletal Provider 08/22/20 11/13/20 [place] [address] [place], [place] [address] Assigned Musculoskeletal Provider 11/14/20 12/04/20 Fawad York MD [address] [place], [place] [address] Assigned Musculoskeletal Provider 12/05/20 02/05/21 Roopa Almonte MD [address] [facility] 200 [place] [address] Endocrinology, Diabetes, and Metabolism 01/19/21 [place] [address] [facility] [address] [place] [address] Assigned Musculoskeletal Provider 02/06/21 09/16/21 Maryse Burton PA-C [address] [place] [address] Physician Livestock Ranch Hand Dermatology 04/14/21 Marquita Starkey MD [address] [facility] 200 [place] [address] Internal Medicine 05/06/21 05/06/21 Roopa Almonte MD [address] [facility] 200 [place] [address] Hospitalist Endocrinology, Diabetes, and Metabolism 05/30/21 Griffin Joshi MD [address] [place] [address] Cardiovascular Disease 07/25/21 Rina Magallon, RN Lead Bay Stocker 07/29/21 07/11/22 Griffin Joshi MD [address] [place] [address] Assigned Heart and Vascular Provider 08/06/21 10/07/21 Roopa Almonte MD [address] [facility] 200 [place] [address] Assigned Endocrinology Provider 09/10/21 [place] [address] [facility] [place] [address] Assigned Musculoskeletal Provider 09/17/21 10/14/21 Lydia Bernstein PA-C [address] [place] [address] Assigned PCP 10/01/21 10/21/21 Rosa Maria Loev [facility] Community Health Worker 10/06/21 [place] [address] [place] [address] Assigned Musculoskeletal Provider 10/15/21 04/26/23 Paula Reza MD [address] [place] [address] Assigned PCP 10/22/21 12/23/21 Keerthi Miner APRN CUSTOMER MANAGEMENT SPECIALIST [address] [place] [address] Assigned Heart and Vascular Provider 10/08/21 02/10/22 Shahida Sutton APRN CUSTOMER MANAGEMENT SPECIALIST Assigned PCP 12/24/21 03/24/22 Porsha Michaels APRN CUSTOMER MANAGEMENT SPECIALIST [address] [place] [address] Assigned Heart and Vascular Provider 02/11/22 05/12/22 Paula Reza MD [address] [place] [address] Assigned PCP 03/25/22 04/07/22 Shahida Sutton APRN CUSTOMER MANAGEMENT SPECIALIST [address] [place] [address] Assigned PCP 04/08/22 06/30/22 Daylin Ludwig EP [facility] [address] [place] [address] Cardiac Rehabilitation Therapist 05/16/23 Laurel Velasquez MD [address] [place] [address] Assigned Heart and Vascular Provider 05/13/22 06/30/22 Daylin Ludwig EP [facility] [address] [place] [address] Cardiac Rehabilitation Therapist 06/08/22 06/09/23 Paula Reza MD [address] [facility] 200 [place] [address] Assigned PCP 07/01/22 07/07/22 Porsha Michaels APRN CUSTOMER MANAGEMENT SPECIALIST [address] [place] [address] Assigned Heart and Vascular Provider 07/01/22 07/07/22 Laurel Velasquez MD [address] [place] [address] Assigned Heart and Vascular Provider 07/08/22 08/04/22 Shahida Sutton APRN CUSTOMER MANAGEMENT SPECIALIST Assigned PCP 07/08/22 09/08/22 Marilin Montaño, CUSTOMER MANAGEMENT SPECIALIST [address] [place] [address] Assigned Heart and Vascular Provider 08/05/22 Esha Dewitt MD [address] [place] [address] [address] [place], [place] [address] Gastroenterology 09/06/22 Heather Mosquera MD [address] [place] [address] Internal Medicine 09/06/22 Paula Reza MD [address] [facility] 200 [place] [address] Assigned PCP 09/09/22 01/05/23 Esha Dewitt MD [address] [facility] 36 [place] [address] Assigned Gastroenterology Provider 09/23/22 Valdo Escamilla PA-C [address] [facility] [address] [place] [address] Assigned Neuroscience Provider 09/30/22 Nohelia Abarca PA-C [address] [place] [address] Physician Livestock Ranch Hand Gastroenterology 10/03/22 Heather Mosquera MD [address] [place] [address] Assigned PCP 01/06/23 Fawad York MD [address] [place], [place] [address] Assigned Musculoskeletal Provider 04/27/23 06/25/23 documented as of this encounter
--- OUTSIDE RECORDS SUMMARY | 2023-12-25 08:21 | XMS_ITS | Encounter Summary ---
Author Organization [facility] Address [address] [place] [address] Care Team Providers Care Nurse Private Duty Name Role Phone Dixon Carson MD Primary Care Provider Mingo Aldana MD Primary Car e Provider Shahida Sutton RN DIABETES EDUCATOR CITY LIBRARY DIRECTOR Primary Care Provi ford Unavailable Herman, Shahida Cummings APRN CITY LIBRARY DIRECTOR Unavailable Un available Herman, Shahida Cummings APRN CITY LIBRARY DIRECTOR Unavailable Un available Carolynn Ramon RN Unavailable [phone] Augustine Callaway MD Unavailable Brady Lion MD Unavailable Un available Nima FranceC Unavailable [phone] Camille Chandler PA-C Unavailable [phone] Anabela Barakat APRN CITY LIBRARY DIRECTOR Unavailable Nima FranceC Unavailable [phone] Basilio Morillo DO Unavailable [phone] Fawad York MD Unavailable [phone] Roopa Almonte MD Unavailable [phone] Augustine Callaway MD Unavailable Maryse Burton [...] Callaway MD Unavailable Paula Reza MD Unavailable Keerhti Miner APRN CITY LIBRARY DIRECTOR Unavailable Herman, Shahida Cummings APRN CITY LIBRARY DIRECTOR Unavailable Un available Porsha Michaels APRN CITY LIBRARY DIRECTOR Unavailable [phone] Paula Reza MD Unavailable Herman, Shahida Cummings APRN CITY LIBRARY DIRECTOR Unavailable Un available Daylin Ludwig Unavailable [phone] Laurel Velasquez MD Unavailable Daylin Ludwig Unavailable [phone] Paula Reza MD Unavailable Porsha Michaels APRN CITY LIBRARY DIRECTOR Unavailable [phone] Laurel Velasquez MD Unavailable Herman, Shahida Cummings APRN CITY LIBRARY DIRECTOR Unavailable Un available Marilin Montaño CITY LIBRARY DIRECTOR Unavailable Esha Dewitt MD Unavailable [phone] Heather Mosquera MD Unavailable Paula Reza MD Unavailable Esha Dewitt MD Unavailable [phone] Ayserick Valdo Desouza PA-C Unavailable [phone] Nohelia AbarcaC Unavailable [phone] Heather Mosquera MD Unavailable [phone] Fawad York MD Unavailable [phone] Reason for Visit * Reason Onset Date Comments MyChart Communication 12/11/2007 refill req uest: krish Encounter Details Date Type Department Care Team (Late st Contact Info) Description 12/11/[address] [phone] Dixon Carson MD [address] [address] MyChart Communication (refill request: all... Social History [...] Aldana MD] Preferred pharmacy: [facility] Comment: Resuming this per Dr Carson's instructions, need refill documented in this encounter Plan of Treatment Not on file documented as of this encounter Visit Diagnoses Diagnosis GENERALIZED ANXIETY DIS- Primary Generalized anxiety disorder documented in this encounter Additional Health Concerns Infection Onset Date Last Indicated Resolved Time Rule Out COVID-19 02/15/2020 02/15/2020 02/16/2020 2:32 PM ION EXCHANGE OPERATOR Rule Out COVID-19 01/05/2021 01/05/2021 01/06/2021 12:57 PM CDT ESBL 01/05/2021 01/05/2021 Rule Out COVID-19 06/30/2021 06/30/2021 07/01/2021 9:34 AM CDT Rule Out COVID-19 07/25/2021 07/25/2021 07/25/2021 8:02 PM CDT documented as of this encounter Care Teams Nurse Private Duty Relationship Specialty Start Date End Date Dixon Carson MD PCP - General 08/10/03 07/21/09 Mingo Aldana MD PCP - General Family Practice 07/22/09 07/12/14 Shahida Sutton APRN CITY LIBRARY DIRECTOR PCP - General Nurse Practitioner 08/17/14 08/04/21 Shahida Sutton APRN CITY LIBRARY DIRECTOR PCP - Assigned PCP 07/12/14 05/07/18 Paula Reza MD [address] [facility] 200 [place] [address] PCP - General Internal Medicine 08/05/21 Shahida Sutton APRN CITY LIBRARY DIRECTOR Assigned PCP 07/12/14 09/30/21 Carolynn Ramon RN Personal Advocate & Liaison (PAL) 12/17/18 08/07/21 [place] [address] [place] [address] Assigned Musculoskeletal Provider 12/26/19 08/21/20 Brady Lion MD Assigned Heart and Vascular Provider 12/26/19 08/14/20 Nima France PA-C [address] [place] [address] Assigned Surgical Provider 05/19/20 08/21/20 Camille Chandler PA-C [address] [place] [address] Assigned Neuroscience Provider 05/19/20 09/14/20 Anabela Barakat APRN CITY LIBRARY DIRECTOR 1700 [place] [address] Assigned Heart and Vascular Provider 08/15/20 08/05/21 Nima France PA-C [address] [place] [address] Assigned Musculoskeletal Provider 08/22/20 11/13/20 [place] [address] [facility] [place] [address] Assigned Musculoskeletal Provider 11/14/20 12/04/20 Fawad York MD [address] [place] [address] Assigned Musculoskeletal Provider 12/05/20 02/05/21 Roopa Almonte MD [address] [facility] 200 [place] [address] Endocrinology, Diabetes, and Metabolism 01/19/[address] [place] [address] [facility] 300 [place] [address] Assigned Musculoskeletal Provider 02/06/21 09/16/21 Maryse Burton, PA-C [address] [place] [address] Physician Propeller Mechanic Dermatology 04/14/21 Marquita Starkey MD [address] [facility] 200 [place] [address] Internal Medicine 05/06/21 05/06/21 Roopa Almonte MD [address] [facility] [address] [place] [address] Hospitalist Endocrinology, Diabetes, and Metabolism 05/30/21 Griffin Joshi MD [address] [facility] [address] [place] [address] Cardiovascular Disease 07/25/21 Rina Magallon, RN Lead Human Resources File Clerk 07/29/21 07/11/22 Griffin Joshi MD [address] [facility] [facility] [address] [place] [address] Assigned Heart and Vascular Provider 08/06/21 10/07/21 Roopa Almonte MD [address] [facility] 200 [place], [place] [address] Assigned Endocrinology Provider 09/10/21 [place] [address] [facility] [place] [address] Assigned Musculoskeletal Provider 09/17/21 10/14/21 Lydia Bernstein, TRACEY [address] [place] [address] Assigned PCP 10/01/21 10/21/21 Rosa Maria Love Cristina Community Health Worker 10/06/21 [place] [address] [address] [facility] 300 [place] [address] Assigned Musculoskeletal Provider 10/15/21 04/26/23 Paula Reza MD [address] [facility] 200 [place] [address] Assigned PCP 10/22/21 12/23/21 Keerthi Miner APRN CITY LIBRARY DIRECTOR [address] [place] [address] Assigned Heart and Vascular Provider 10/08/21 02/10/22 Shahida Sutton APRN CITY LIBRARY DIRECTOR Assigned PCP 12/24/21 03/24/22 Porsha Michaels APRN CITY LIBRARY DIRECTOR [address] [place] [address] Assigned Heart and Vascular Provider 02/11/22 05/12/22 Paula Reza MD [address] [place] [address] Assigned PCP 03/25/22 04/07/22 Shahida Sutton APRN CITY LIBRARY DIRECTOR [address] [place] [address] Assigned PCP 04/08/22 06/30/22 Daylin Ludwig, EP [facility] [address] [place] [address] Cardiac Rehabilitation Therapist 05/16/23 Laurel Velasquez MD [address] [place] [address] Assigned Heart and Vascular Provider 05/13/22 06/30/22 Daylin Ludwig, EP [facility] [address] [place] [address] Cardiac Rehabilitation Therapist 06/08/22 06/09/23 Paula Reza MD [address] [place] [address] Assigned PCP 07/01/22 07/07/22 Porsha Michaels APRN CITY LIBRARY DIRECTOR [address] [place] [address] Assigned Heart and Vascular Provider 07/01/22 07/07/22 Laurel Velasquez MD [address] [place] [address] Assigned Heart and Vascular Provider 07/08/22 08/04/22 Shahida Sutton APRN CITY LIBRARY DIRECTOR Assigned PCP 07/08/22 09/08/22 Marilin Montaño, CITY LIBRARY DIRECTOR [address] [place] [address] Assigned Heart and Vascular Provider 08/05/22 Esha Dewitt MD [address] [address] Gastroenterology 09/06/22 Heather Mosquera MD [address] [place] [address] Internal Medicine 09/06/22 Paula Reza MD [address] [place], [place] [address] Assigned PCP 09/09/22 01/05/23 Esha Dewitt MD 420 [facility] 36 [place] [address] Assigned Gastroenterology Provider 09/23/22 Valdo Escamilla PA-C [address] [facility] [address] [place] [address] Assigned Neuroscience Provider 09/30/22 Nohelia Abarca PA-C [address] [place] [address] Physician Propeller Mechanic Gastroenterology 10/03/22 Heather Mosquera MD [address] [place] [address] Assigned PCP 01/06/23 Fawad York MD [address] [place], [place] [address] Assigned Musculoskeletal Provider 04/27/23 06/25/23 documented as of this encounter
--- OUTSIDE RECORDS SUMMARY | 2023-12-25 08:21 | XMS_ITS | Encounter Summary ---
Author Organization [facility] Address [address] [place] [address] Care Team Providers Care Circuit Designer Name Role Phone Dixon Carson MD Primary Care Provider Mingo Aldana MD Primary Car e Provider Shahida Sutton ART EDUCATION PROFESSOR HEALTH/SAFETY JOB TITLES Primary Care Provi ford Unavailable Herman, Shahida Cummings APRN HEALTH/SAFETY JOB TITLES Unavailable Un available Herman, Shahida Cummings APRN HEALTH/SAFETY JOB TITLES Unavailable Un available Carolynn Ramon RN Unavailable [phone] Augustine Callaway MD Unavailable Brady Lion MD Unavailable Un available Nima FranceC Unavailable [phone] Camille Chandler PA-C Unavailable [phone] Anabela Barakat APRN HEALTH/SAFETY JOB TITLES Unavailable Nima FranceC Unavailable [phone] Basilio Morillo DO Unavailable [phone] Fawad York MD Unavailable [phone] Roopa Almonte MD Unavailable [phone] Augustine Callaway MD Unavailable Maryse Burton [...] Paula Reza MD Unavailable Keerthi Miner APRN HEALTH/SAFETY JOB TITLES Unavailable Herman, Shahida Cummings APRN HEALTH/SAFETY JOB TITLES Unavailable Un available Porsha Michaels APRN HEALTH/SAFETY JOB TITLES Unavailable [phone] Paula Reza MD Unavailable Herman, Shahida Cummings APRN HEALTH/SAFETY JOB TITLES Unavailable Un available Daylin Ludwig Unavailable [phone] Laurel Velasquez MD Unavailable Daylin Ludwig Unavailable [phone] Paula Reza MD Unavailable Porsha Michaels APRN HEALTH/SAFETY JOB TITLES Unavailable [phone] Laurel Velasquez MD Unavailable Herman, Shahida Cummings APRN HEALTH/SAFETY JOB TITLES Unavailable Un available Marilin Montaño HEALTH/SAFETY JOB TITLES Unavailable Esha Dewitt MD Unavailable [phone] Heather Mosquera MD Unavailable Paula Reza MD Unavailable Esha Dewitt MD Unavailable [phone] Valdo Escamilla PA-C Unavailable Nohelia Abarca PA-C Unavailable [phone] Heather Mosquera MD Unavailable [phone] Fawad [place] MD Unavailable Encounter Details Date Type Department Care Team (Late st Contact Info) Description 05/01/2007 [facility] [address] [address] Dixon Carson MD [address] [address] HEADACHE (Primary Dx) Social History [...] 4:28 PM CST Understood, will rx vicodin ECTIONAL THERAPY DIRECTOR documented in this encounter Plan of Treatment Not on file documented as of this encounter Visit Diagnoses Diagnosis Headache(784.0)- Primary Headache documented in this encounter Additional Health Concerns Infection Onset Date Last Indicated Resolved Time Rule Out COVID-19 02/15/2020 02/15/2020 02/16/2020 2:32 PM CORRECTIONAL THERAPY DIRECTOR Rule Out COVID-19 01/05/2021 01/05/2021 01/06/2021 12:57 PM CDT ESBL 01/05/2021 01/05/2021 Rule Out COVID-19 06/30/2021 06/30/2021 07/01/2021 9:34 AM CDT Rule Out COVID-19 07/25/2021 07/25/2021 07/25/2021 8:02 PM CDT documented as of this encounter Care Teams Circuit Designer Relationship Specialty Start Date End Date Dxion Carson MD PCP - General 08/10/03 07/21/09 Mingo Aldana MD PCP - General Family Practice 07/22/09 07/12/14 Shahida Sutton APRN HEALTH/SAFETY JOB TITLES PCP - General Nurse Practitioner 08/17/14 08/04/21 Shahida Sutton APRN HEALTH/SAFETY JOB TITLES PCP - Assigned PCP 07/12/14 05/07/18 Paula Reza MD [address] [facility] [facility] [address] [place], [place] [address] PCP - General Internal Medicine 08/05/21 Shahida Sutton APRN HEALTH/SAFETY JOB TITLES Assigned PCP 07/12/14 09/30/21 Carolynn Ramon, KASIE Personal Advocate & Liaison (PAL) 12/17/18 08/07/21 [place] [address] [place] [address] Assigned Musculoskeletal Provider 12/26/19 08/21/20 Brady Lion MD Assigned Heart and Vascular Provider 12/26/19 08/14/20 Nima France PA-C [address] [facility] [facility] [address] [place] [address] Assigned Surgical Provider 05/19/20 08/21/20 Camille Chandler PA-C [address] [place], [place] [address] Assigned Neuroscience Provider 05/19/20 09/14/20 Anabela Barakat APRN CNP [address] [place] [address] Assigned Heart and Vascular Provider 08/15/20 08/05/21 Nima France PA-C [address] [facility] [address] [place] [address] Assigned Musculoskeletal Provider 08/22/20 11/13/20 [place] [address] [facility] [place], [place] [address] Assigned Musculoskeletal Provider 11/14/20 12/04/20 Fawad York MD [address] [place], [place] [address] Assigned Musculoskeletal Provider 12/05/20 02/05/21 Roopa Almonte MD [address] [facility] 200 [place] [address] Endocrinology, Diabetes, and Metabolism 01/19/21 [place] [address] [facility] 300 [place] [address] Assigned Musculoskeletal Provider 02/06/21 09/16/21 Maryse Burton PA-C [address] [place] [address] Physician Accounting Machine Servicer Dermatology 04/14/21 Marquita Starkey MD [address] [facility] [address] [place], [place] [address] Internal Medicine 05/06/21 05/06/21 Roopa Almonte MD [address] [facility] [address] [place] [address] Hospitalist Endocrinology, Diabetes, and Metabolism 05/30/21 Griffin Joshi MD [address] [facility] [address] [place], [place] [address] Cardiovascular Disease 07/25/21 Rina Magallon, RN Lead Shank Paperer 07/29/21 07/11/22 Griffin Joshi MD [address] [facility] [address] [place] [address] Assigned Heart and Vascular Provider 08/06/21 10/07/21 Roopa Almonte MD [address] [facility] 200 [place] [address] Assigned Endocrinology Provider 09/10/21 [place] [address] [facility] [place] [address] Assigned Musculoskeletal Provider 09/17/21 10/14/21 Lydia Bernstein PA-C [address] [place] [address] Assigned PCP 10/01/21 10/21/21 Rosa Maria Love Cristina Community Health Worker 10/06/21 [place] [address] [place] [address] Assigned Musculoskeletal Provider 10/15/21 04/26/23 Paula Reza MD [address] [place] [address] Assigned PCP 10/22/21 12/23/21 Keerthi Miner APRN HEALTH/SAFETY JOB TITLES [address] [place] [address] Assigned Heart and Vascular Provider 10/08/21 02/10/22 Shahida Sutton, DUANE HEALTH/SAFETY JOB TITLES Assigned PCP 12/24/21 03/24/22 Porsha Michaels APRN HEALTH/SAFETY JOB TITLES [address] [place] [address] Assigned Heart and Vascular Provider 02/11/22 05/12/22 Paula Reza MD [address] [place] [address] Assigned PCP 03/25/22 04/07/22 Shahida Sutton APRN HEALTH/SAFETY JOB TITLES [address] [place] [address] Assigned PCP 04/08/22 06/30/22 Daylin Ludwig, [facility]KI [facility] [address] [place] [address] Cardiac Rehabilitation Therapist 05/16/23 Laurel Velasquez MD [address] [place] [address] Assigned Heart and Vascular Provider 05/13/22 06/30/22 Daylin Ludwig, [facility] [address] [place] [address] Cardiac Rehabilitation Therapist 06/08/22 06/09/23 Paula Reza MD [address] [facility] 200 [place] [address] Assigned PCP 07/01/22 07/07/22 Porsha Michaels APRN HEALTH/SAFETY JOB TITLES [address] [place] [address] Assigned Heart and Vascular Provider 07/01/22 07/07/22 Laurel Velasquez MD [address] [place] [address] Assigned Heart and Vascular Provider 07/08/22 08/04/22 Shahida Sutton APRN HEALTH/SAFETY JOB TITLES Assigned PCP 07/08/22 09/08/22 Marilin Montaño, HEALTH/SAFETY JOB TITLES [address] [place] [address] Assigned Heart and Vascular Provider 08/05/22 Esha Dewitt MD [address] [address] Gastroenterology 09/06/22 Heather Mosquera MD [address] [place] [address] Internal Medicine 09/06/22 Paula Reza MD [address] [facility] 200 [place] [address] Assigned PCP 09/09/22 01/05/23 Esha Dewitt MD [address] [address] Assigned Gastroenterology Provider 09/23/22 Valdo Escamilla PA-C [address] [facility] [facility] [address] [place] [address] Assigned Neuroscience Provider 09/30/22 Nohelia Abarca PA-C [address] [place] [address] Physician Accounting Machine Servicer Gastroenterology 10/03/22 Heather Mosquera MD [address] [place] [address] Assigned PCP 01/06/23 Fawad [place] MD [address] [place] [address] Assigned Musculoskeletal Provider 04/27/23 06/25/23 documented as of this encounter
--- OUTSIDE RECORDS SUMMARY | 2023-12-25 08:21 | XMS_ITS | Encounter Summary ---
Author Organization [facility] Address [address] [place] [address] Care Team Providers Care Analytical Laboratory Technician Name Role Phone Dixon Carson MD Primary Care Provider Mingo Aldana MD Primary Car e Provider Shahida Sutton CONTAMINATED LAND CONSULTANT INSTRUMENT/CONTROL TECHNICIAN Primary Care Provi ford Unavailable Herman, Shahida Cummings APRN INSTRUMENT/CONTROL TECHNICIAN Unavailable Un available Herman, Shahida Cummings APRN INSTRUMENT/CONTROL TECHNICIAN Unavailable Un available Carolynn Ramon RN Unavailable [phone] Augustine Callaway MD Unavailable Brady Lion MD Unavailable Un available Nima FranceC Unavailable [phone] Camille Chandler PA-C Unavailable [phone] Anbaela Barakat APRN INSTRUMENT/CONTROL TECHNICIAN Unavailable Nima FranceC Unavailable [phone] Basilio Morillo DO Unavailable [phone] Fawad [place] MD Unavailable [phone] Roopa Almonte MD Unavailable [phone] Augustine Callaway MD Unavailable Maryse Burton [...] Paula Reza MD Unavailable Keerthi Miner APRN INSTRUMENT/CONTROL TECHNICIAN Unavailable Herman, Shahida Cummings APRN INSTRUMENT/CONTROL TECHNICIAN Unavailable Un available Porsha Michaels APRN INSTRUMENT/CONTROL TECHNICIAN Unavailable [phone] Paula Reza MD Unavailable Herman, Shahida Cummings APRN INSTRUMENT/CONTROL TECHNICIAN Unavailable Un available Daylin Ludwig Unavailable [phone] Laurel Velasquez MD Unavailable Daylin Ludwig Unavailable [phone] Paula Reza MD Unavailable Porsha Michaels APRN INSTRUMENT/CONTROL TECHNICIAN Unavailable [phone] Laurel Velasquez MD Unavailable Herman, Shahida Cummings APRN INSTRUMENT/CONTROL TECHNICIAN Unavailable Un available Marilin Montaño INSTRUMENT/CONTROL TECHNICIAN Unavailable [phone] Esha Dewitt MD Unavailable [phone] Heather Mosquera MD Unavailable Paula Reza MD Unavailable Esha Dewitt MD Unavailable [phone] Valdo Escamilla PA-C Unavailable [phone] Nohelia AbarcaC Unavailable [phone] Heather Mosquera MD Unavailable [phone] Fawad [place] MD Unavailable [phone] Encounter Details Date Type Department Care Team (Late st Contact Info) Description 06/11/2007 [facility] [address] [address] Dixon Carson MD [address] [address] Social History Tobacco Use Types [...] Out COVID-19 02/15/2020 02/15/2020 02/16/2020 2:32 PM MATERIAL CLERK Rule Out COVID-19 01/05/2021 01/05/2021 01/06/2021 12:57 PM CDT ESBL 01/05/2021 01/05/2021 Rule Out COVID-19 06/30/2021 06/30/2021 07/01/2021 9:34 AM CDT Rule Out COVID-19 07/25/2021 07/25/2021 07/25/2021 8:02 PM CDT documented as of this encounter Care Teams Analytical Laboratory Technician Relationship Specialty Start Date End Date Dixon Carson MD PCP - General 08/10/03 07/21/09 Mingo Aldana MD PCP - General Family Practice 07/22/09 07/12/14 Shahida Sutton APRN INSTRUMENT/CONTROL TECHNICIAN PCP - General Nurse Practitioner 08/17/14 08/04/21 Shahida Sutton APRN INSTRUMENT/CONTROL TECHNICIAN PCP - Assigned PCP 07/12/14 05/07/18 Paula Reza MD [address] [facility] [address] [place] [address] PCP - General Internal Medicine 08/05/21 Shahida Sutton APRN INSTRUMENT/CONTROL TECHNICIAN Assigned PCP 07/12/14 09/30/21 Carolynn Ramon, KASIE Personal Advocate & Liaison (PAL) 12/17/18 08/07/21 [place] [address] [address] [place] [address] Assigned Musculoskeletal Provider 12/26/19 08/21/20 Brady Lion MD Assigned Heart and Vascular Provider 12/26/19 08/14/20 Nima France PA-C [address] [place] [address] Assigned Surgical Provider 05/19/20 08/21/20 Camille Chandler PA-C [address] [facility] [address] [place], [place] [address] Assigned Neuroscience Provider 05/19/20 09/14/20 Anabela Barakat APRN INSTRUMENT/CONTROL TECHNICIAN 1700 [place] [address] Assigned Heart and Vascular Provider 08/15/20 08/05/21 Nima France PA-C [address] [facility] 450 [place] [address] Assigned Musculoskeletal Provider 08/22/20 11/13/20 [place] [address] [place], [place] [address] Assigned Musculoskeletal Provider 11/14/20 12/04/20 Fawad [place] MD [address] [place], [place] [address] Assigned Musculoskeletal Provider 12/05/20 02/05/21 Roopa Almonte MD [address] [facility] 200 [place] [address] Endocrinology, Diabetes, and Metabolism 01/19/21 [place] [address] [address] [facility] [facility] [address] [place] [address] Assigned Musculoskeletal Provider 02/06/21 09/16/21 Maryse Burton PA-C [address] [facility] [place] [place] [address] Physician Lighter Dermatology 04/14/21 Marquita Starkey MD [address] [facility] 200 [place] [address] Internal Medicine 05/06/21 05/06/21 Roopa Almonte MD [address] [facility] 200 [place] [address] Hospitalist Endocrinology, Diabetes, and Metabolism 05/30/21 Griffin Joshi MD [address] [place] [address] Cardiovascular Disease 07/25/21 Rina Magallon, RN Lead Booker 07/29/21 07/11/22 Griffin Joshi MD [address] [place] [address] Assigned Heart and Vascular Provider 08/06/21 10/07/21 Roopa Almonte MD [address] [place], [place] [address] Assigned Endocrinology Provider 09/10/21 [place] [address] [facility] [place] [address] Assigned Musculoskeletal Provider 09/17/21 10/14/21 Lydia Bernstein PA-C [address] [place] [address] Assigned PCP 10/01/21 10/21/21 Rosa Maria Love CHW Community Health Worker 10/06/21 [place] [address] [place] [address] Assigned Musculoskeletal Provider 10/15/21 04/26/23 Paula Reza MD [address] [place] [address] Assigned PCP 10/22/21 12/23/21 Keerthi Miner APRN INSTRUMENT/CONTROL TECHNICIAN [address] [place] [address] Assigned Heart and Vascular Provider 10/08/21 02/10/22 Shahida Sutton APRN INSTRUMENT/CONTROL TECHNICIAN Assigned PCP 12/24/21 03/24/22 Porsha Michaels APRN INSTRUMENT/CONTROL TECHNICIAN [address] [place] [address] Assigned Heart and Vascular Provider 02/11/22 05/12/22 Paula Reza MD [address] [place] [address] Assigned PCP 03/25/22 04/07/22 Shahida Sutton APRN INSTRUMENT/CONTROL TECHNICIAN [address] [place] [address] Assigned PCP 04/08/22 06/30/22 Daylin Ludwig EP [facility] [address] [place] [address] Cardiac Rehabilitation Therapist 05/16/23 Laurel Velasquez MD [address] [place] [address] Assigned Heart and Vascular Provider 05/13/22 06/30/22 Daylin Ludwig EP [facility] [address] [place] [address] Cardiac Rehabilitation Therapist 06/08/22 06/09/23 Paula Reza MD [address] [facility] [address] [place], [place] [address] Assigned PCP 07/01/22 07/07/22 Porsha Michaels APRN INSTRUMENT/CONTROL TECHNICIAN [address] [place] [address] Assigned Heart and Vascular Provider 07/01/22 07/07/22 Laurel Velasquez MD [address] [place] [address] Assigned Heart and Vascular Provider 07/08/22 08/04/22 Shahida Sutton, CONTAMINATED LAND CONSULTANT INSTRUMENT/CONTROL TECHNICIAN Assigned PCP 07/08/22 09/08/22 Marilin Montaño, INSTRUMENT/CONTROL TECHNICIAN [address] [place] [address] Assigned Heart and Vascular Provider 08/05/22 Esha Dewitt MD [address] [place] [address] Gastroenterology 09/06/22 Heather Mosquera MD [address] [place] [address] Internal Medicine 09/06/22 Paula Reza MD [address] [place] [address] Assigned PCP 09/09/22 01/05/23 Esha Dewitt MD 420 [facility] 36 [address] Assigned Gastroenterology Provider 09/23/22 Valdo Escamilla PA-C [address] [facility] [address] [place] [address] Assigned Neuroscience Provider 09/30/22 Nohelia Abarca PA-C [address] [place], [place] [address] Physician Lighter Gastroenterology 10/03/22 Heather Mosquera MD [address] [place] [address] Assigned PCP 01/06/23 Fawad [place] MD [address] [place], [place] [address] Assigned Musculoskeletal Provider 04/27/23 06/25/23 documented as of this encounter
--- OUTSIDE RECORDS SUMMARY | 2023-12-25 08:21 | XMS_ITS | Encounter Summary ---
Author Organization [facility] Address [address] [place] [address] Care Team Providers Care Aircraft Cleaning Supervisor Name Role Phone Dixon Carson MD Primary Care Provider Mingo Aldana MD Primary Car e Provider Shahida Sutton PIPE STEM REPAIRER FLIGHT TOWER DISPATCHER Primary Care Provi ford Unavailable Herman, Shahida Cummings APRN FLIGHT TOWER DISPATCHER Unavailable Un available Herman, Shahida Cummings APRN FLIGHT TOWER DISPATCHER Unavailable Un available Carolynn Ramon RN Unavailable [phone] Augustine Callaway MD Unavailable Brady Lion MD Unavailable Un available Nima FranceC Unavailable [phone] Camille Chandler PA-C Unavailable [phone] Anabela Barakat APRN FLIGHT TOWER DISPATCHER Unavailable Nima FranceC Unavailable [phone] Basilio Morillo DO Unavailable [phone] Fawad York MD Unavailable [phone] Roopa Almonte MD Unavailable [phone] Augustine Callaway MD Unavailable Maryse Burton [...] Paula Reza MD Unavailable Keerthi Miner APRN FLIGHT TOWER DISPATCHER Unavailable Herman, Shahida Cummings APRN FLIGHT TOWER DISPATCHER Unavailable Un available Porsha Michaels APRN FLIGHT TOWER DISPATCHER Unavailable [phone] Paula Reza MD Unavailable Herman, Shahida Cummings APRN FLIGHT TOWER DISPATCHER Unavailable Un available Daylin Ludwig Unavailable [phone] Laurel Velasquez MD Unavailable Daylin Ludwig Unavailable [phone] Paula Reza MD Unavailable Porsha Michaels APRN FLIGHT TOWER DISPATCHER Unavailable [phone] Laurel Velasquez MD Unavailable Herman, Shahida Cummings APRN FLIGHT TOWER DISPATCHER Unavailable Un available Marilin Montaño FLIGHT TOWER DISPATCHER Unavailable Esha Dewitt MD Unavailable [phone] Heather Mosquera MD Unavailable [phone] Paula Reza MD Unavailable Esha Dewitt MD Unavailable [phone] Valdo Escamilla PA-C Unavailable Nohelia AbarcaC Unavailable [phone] Heather Mosquera MD Unavailable [phone] Fawad York MD Unavailable Encounter Details Date Type Department Care Team (Late st Contact Info) Description 10/14/2007 [facility] [address], [address] [place] [address] Dixon Carson MD [address] [address] CHRISTOFER (Obstructive Sleep Apnea); Neck [...] Out COVID-19 02/15/2020 02/15/2020 02/16/2020 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 Rule Out COVID-19 01/05/2021 01/05/2021 01/06/2021 12:57 PM CDT ESBL 01/05/2021 01/05/2021 Rule Out COVID-19 06/30/2021 06/30/2021 07/01/2021 9:34 AM CDT Rule Out COVID-19 07/25/2021 07/25/2021 07/25/2021 8:02 PM CDT documented as of this encounter Care Teams Aircraft Cleaning Supervisor Relationship Specialty Start Date End Date Dixon Carson MD PCP - General 08/10/03 07/21/09 Mingo Aldana MD PCP - General Family Practice 07/22/09 07/12/14 Shahida Sutton APRN FLIGHT TOWER DISPATCHER PCP - General Nurse Practitioner 08/17/14 08/04/21 Shahida Sutton APRN FLIGHT TOWER DISPATCHER PCP - Assigned PCP 07/12/14 05/07/18 Paula Reza MD [address] [place], [place] [address] PCP - General Internal Medicine 08/05/21 Shahida Sutton APRN FLIGHT TOWER DISPATCHER Assigned PCP 07/12/14 09/30/21 Carolynn Ramon RN Personal Advocate & Liaison (PAL) 12/17/18 08/07/21 [place] [address] [place], [place] [address] Assigned Musculoskeletal Provider 12/26/19 08/21/20 Brady Lion MD Assigned Heart and Vascular Provider 12/26/19 08/14/20 Nima France PA-C [address]45 [facility] [address] [place] [address] Assigned Surgical Provider 05/19/20 08/21/20 Camille Chandler PA-C 6545 [facility] [address] [place] [address] Assigned Neuroscience Provider 05/19/20 09/14/20 Anabela Barakat APRN FLIGHT TOWER DISPATCHER 1700 [place] [address] Assigned Heart and Vascular Provider 08/15/20 08/05/21 Nima France PA-C 6545 [facility] [address] [place] [address] Assigned Musculoskeletal Provider 08/22/20 11/13/20 [place] [address] [place] [address] Assigned Musculoskeletal Provider 11/14/20 12/04/20 Fawad York MD 909 [place] [address] Assigned Musculoskeletal Provider 12/05/20 02/05/21 Roopa Almonte MD [address] [place] [address] Endocrinology, Diabetes, and Metabolism 01/19/21 [place] [address] [place] [address] Assigned Musculoskeletal Provider 02/06/21 09/16/21 Maryse Burton PA-C 5200 [place] [address] Physician Dyer Helper Dermatology 04/14/21 Marquita Starkey MD [address] [facility] 200 [place], [place] [address] Internal Medicine 05/06/21 05/06/21 Roopa Almonte MD [address] [facility] 200 [place], [place] [address] Hospitalist Endocrinology, Diabetes, and Metabolism 05/30/21 Griffin Joshi MD [address] [facility] [address] [place] [address] Cardiovascular Disease 07/25/21 Rina Magallon, RN Lead Wood Patternmaker Apprentice 07/29/21 07/11/22 Griffin Joshi MD [address] [facility] [address] [place] [address] Assigned Heart and Vascular Provider 08/06/21 10/07/21 Roopa Almonte MD [address] [facility] 200 [place] [address] Assigned Endocrinology Provider 09/10/21 [place] [address] [facility] [place] [address] Assigned Musculoskeletal Provider 09/17/21 10/14/21 Lydia Bernstein PA-C [address] [place] [address] Assigned PCP 10/01/21 10/21/21 Rosa Maria Love CHW Community Health Worker 10/06/21 [place] [address] [place] [address] Assigned Musculoskeletal Provider 10/15/21 04/26/23 Paula Reza MD [address] 200 [place] [address] Assigned PCP 10/22/21 12/23/21 Keerthi Miner APRN FLIGHT TOWER DISPATCHER [address] [place] [address] Assigned Heart and Vascular Provider 10/08/21 02/10/22 Shahida Sutton APRN FLIGHT TOWER DISPATCHER Assigned PCP 12/24/21 03/24/22 Porsha Michaels APRN FLIGHT TOWER DISPATCHER [address] [place] [address] Assigned Heart and Vascular Provider 02/11/22 05/12/22 Paula Reza MD [address] [place] [address] Assigned PCP 03/25/22 04/07/22 Shahida Sutton APRN FLIGHT TOWER DISPATCHER [address] [place] [address] Assigned PCP 04/08/22 06/30/22 Daylin Ludwig, EP [facility] [address] [place] [address] Cardiac Rehabilitation Therapist 05/16/23 Laurel Velasquez MD [address] [place] [address] Assigned Heart and Vascular Provider 05/13/22 06/30/22 Daylin Ludwig, EP [facility] [address] [place] [address] Cardiac Rehabilitation Therapist 06/08/22 06/09/23 Paula Reza MD [address] [facility] 200 [place], [place] [address] Assigned PCP 07/01/22 07/07/22 Porsha Michaels APRN FLIGHT TOWER DISPATCHER [address] [place] [place] [address] Assigned Heart and Vascular Provider 07/01/22 07/07/22 Laurel Velasquez MD [address] [place] [address] Assigned Heart and Vascular Provider 07/08/22 08/04/22 Shahida Sutotn APRN FLIGHT TOWER DISPATCHER Assigned PCP 07/08/22 09/08/22 Marilin Montaño, FLIGHT TOWER DISPATCHER [address] [place] [address] Assigned Heart and Vascular Provider 08/05/22 Esha Dewitt MD 420 [facility] 36 [place] [address] Gastroenterology 09/06/22 Heather Mosquera MD [address] [place] [address] Internal Medicine 09/06/22 Paula Reza MD [address] [place] [address] Assigned PCP 09/09/22 01/05/23 Esha Dewitt MD [address] [address] Assigned Gastroenterology Provider 09/23/22 Valdo Escamilla PA-C [address] [facility] [address] [place] [address] Assigned Neuroscience Provider 09/30/22 Nohelia Abarca PA-C 2450 [place] [address] Physician Dyer Helper Gastroenterology 10/03/22 Heather Mosquera MD [address] [place] [address] Assigned PCP 01/06/23 Fawad York MD 9[address] [place], [place] [address] Assigned Musculoskeletal Provider 04/27/23 06/25/23 documented as of this encounter
--- OUTSIDE RECORDS SUMMARY | 2023-12-25 08:21 | XMS_ITS | Encounter Summary ---
Author Organization [facility] Address [address] [place] [address] Care Team Providers Care Valuation Consultant Name Role Phone Dixon Carson MD Primary Care Provider Mingo Aldana MD Primary Car e Provider Shahida Sutton COVER CUTTER MACHINE SLIDING JOINT MAKER Primary Care Provi ford Unavailable Herman, Shahida Cummings APRN SLIDING JOINT MAKER Unavailable Un available Herman, Shahida Cummings APRN SLIDING JOINT MAKER Unavailable Un available Carolynn Ramon RN Unavailable [phone] Augustine Callaway MD Unavailable Brady Lion MD Unavailable Un available Nima FranceC Unavailable [phone] Camille Chandler PA-C Unavailable [phone] Anabela Barakat APRN SLIDING JOINT MAKER Unavailable Nima FranceC Unavailable [phone] Basilio Morillo DO Unavailable [phone] Fawad York MD Unavailable [phone] Roopa Almonte MD Unavailable [phone] Augustine Callaway MD Unavailable Maryse Burton [...] Paula Reza MD Unavailable Keerthi Miner APRN SLIDING JOINT MAKER Unavailable Herman, Shahida Cummings APRN SLIDING JOINT MAKER Unavailable Un available Porsha Michaels APRN SLIDING JOINT MAKER Unavailable [phone] Paula Reza MD Unavailable Herman, Shahida Cummings APRN SLIDING JOINT MAKER Unavailable Un available Daylin Ludwig Unavailable [phone] Laurel Velasquez MD Unavailable Daylin Ludwig Unavailable [phone] Paula Reza MD Unavailable Porsha Michaels APRN SLIDING JOINT MAKER Unavailable [phone] Laurel Velasquez MD Unavailable Herman, Shahida Cumimngs APRN SLIDING JOINT MAKER Unavailable Un available Marilin Montaño SLIDING JOINT MAKER Unavailable Esha Dewitt MD Unavailable [phone] Heather Mosquera MD Unavailable [phone] Paula Reza MD Unavailable Esha Dewitt MD Unavailable [phone] Valdo Escamilla PA-C Unavailable [phone] Nohelia AbarcaC Unavailable [phone] Heather Mosquera MD Unavailable Fawad York MD Unavailable Encounter Details Date Type Department Care Team (Late st Contact Info) Description 04/17/2007 [facility] [address] [address] Dixon Carson MD [address] [address] Social History Tobacco Use Types [...] Out COVID-19 02/15/2020 02/15/2020 02/16/2020 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 Rule Out COVID-19 01/05/2021 01/05/2021 01/06/2021 12:57 PM CDT ESBL 01/05/2021 01/05/2021 Rule Out COVID-19 06/30/2021 06/30/2021 07/01/2021 9:34 AM CDT Rule Out COVID-19 07/25/2021 07/25/2021 07/25/2021 8:02 PM CDT documented as of this encounter Care Teams Valuation Consultant Relationship Specialty Start Date End Date Dixon Carson MD PCP - General 08/10/03 07/21/09 Mingo Aldana MD PCP - General Family Practice 07/22/09 07/12/14 Shahida Sutton APRN SLIDING JOINT MAKER PCP - General Nurse Practitioner 08/17/14 08/04/21 Shahida Sutton APRN SLIDING JOINT MAKER PCP - Assigned PCP 07/12/14 05/07/18 Paula Reza MD [address] [facility] 200 [place] [address] PCP - General Internal Medicine 08/05/21 Shahida Sutton APRN SLIDING JOINT MAKER Assigned PCP 07/12/14 09/30/21 Carolynn Ramon, KASIE Personal Advocate & Liaison (PAL) 12/17/18 08/07/21 [place] [address] [place] [address] Assigned Musculoskeletal Provider 12/26/19 08/21/20 Brady Lion MD Assigned Heart and Vascular Provider 12/26/19 08/14/20 Nima France PA-C [address] [place] [address] Assigned Surgical Provider 05/19/20 08/21/20 Camille Chandler PA-C 6545 [facility] [address] [place], [place] [address] Assigned Neuroscience Provider 05/19/20 09/14/20 Anabela Barakat APRN SLIDING JOINT MAKER 1700 [place] [address] Assigned Heart and Vascular Provider 08/15/20 08/05/21 Nima France PA-C 6545 [facility] 450 [place] [address] Assigned Musculoskeletal Provider 08/22/20 11/13/20 [place] [address] [place], [place] [address] Assigned Musculoskeletal Provider 11/14/20 12/04/20 Fawad York MD 909 [place], [place] [address] Assigned Musculoskeletal Provider 12/05/20 02/05/21 Roopa Almonte MD [address] [facility] 200 [place] [address] Endocrinology, Diabetes, and Metabolism 01/19/21 [place] [address] [place] [facility] 300 [place] [address] Assigned Musculoskeletal Provider 02/06/21 09/16/21 Maryse Burton PA-C [address] [place] [address] Physician Efficiency Clerk Dermatology 04/14/21 Marquita Starkey MD [address] [facility] 200 [place] [address] Internal Medicine 05/06/21 05/06/21 Roopa Almonte MD [address] [facility] 200 [place] [address] Hospitalist Endocrinology, Diabetes, and Metabolism 05/30/21 Griffin Joshi MD [address] [place] [address] Cardiovascular Disease 07/25/21 Rina Magallon, RN Lead Manager Radio 07/29/21 07/11/22 Griffin Joshi MD [address] [place] [address] Assigned Heart and Vascular Provider 08/06/21 10/07/21 Roopa Almonte MD [address] [place], [place] [address] Assigned Endocrinology Provider 09/10/21 [place] [address] [facility] [place] [address] Assigned Musculoskeletal Provider 09/17/21 10/14/21 Lydia Bernstein PA-C [address] [place] [address] Assigned PCP 10/01/21 10/21/21 Rosa Maria Love CHW Community Health Worker 10/06/21 [place] [address] [place] [address] Assigned Musculoskeletal Provider 10/15/21 04/26/23 Paula Reza MD [address] [place] [address] Assigned PCP 10/22/21 12/23/21 Keerthi Miner APRN SLIDING JOINT MAKER [address] [place] [address] Assigned Heart and Vascular Provider 10/08/21 02/10/22 Shahida Sutton APRN SLIDING JOINT MAKER Assigned PCP 12/24/21 03/24/22 Porsha Michaels APRN SLIDING JOINT MAKER [address] [place] [address] Assigned Heart and Vascular Provider 02/11/22 05/12/22 Paula Reza MD [address] [place] [address] Assigned PCP 03/25/22 04/07/22 Shahida Sutton APRN SLIDING JOINT MAKER [address] [place] [address] Assigned PCP 04/08/22 06/30/22 Daylin Ludwig EP [facility] [address] [place] [address] Cardiac Rehabilitation Therapist 05/16/23 Laurel Velasquez MD [address] [place] [address] Assigned Heart and Vascular Provider 05/13/22 06/30/22 Daylin Ludwig EP [facility] [address] [place] [address] Cardiac Rehabilitation Therapist 06/08/22 06/09/23 Paula Reza MD [address] [facility] 200 [place], [place] [address] Assigned PCP 07/01/22 07/07/22 Porsha Michaels APRN SLIDING JOINT MAKER [address] [place] [address] Assigned Heart and Vascular Provider 07/01/22 07/07/22 Laurel Velasquez MD [address] [place] [address] Assigned Heart and Vascular Provider 07/08/22 08/04/22 Shahida Sutton, COVER CUTTER MACHINE SLIDING JOINT MAKER Assigned PCP 07/08/22 09/08/22 Marilin Montaño, SLIDING JOINT MAKER [address] [place] [address] Assigned Heart and Vascular Provider 08/05/22 Esha Dewitt MD [address] [place] [address] 36 [place], [place] [address] Gastroenterology 09/06/22 Heather Mosquera MD [address] [place] [address] Internal Medicine 09/06/22 Paula Reza MD [address] [place] [address] Assigned PCP 09/09/22 01/05/23 Esha Dewitt MD 420 [facility] 36 [place], [place] [address] Assigned Gastroenterology Provider 09/23/22 Valdo Escamilla PA-C 6[address] [facility] [address] [place] [address] Assigned Neuroscience Provider 09/30/22 Nohelia Abarca PA-C 2450 [place], [place] [address] Physician Efficiency Clerk Gastroenterology 10/03/22 Heather Mosquera MD [address] [place] [address] Assigned PCP 01/06/23 Fawad York MD 909 [place], [place] [address] Assigned Musculoskeletal Provider 04/27/23 06/25/23 documented as of this encounter
--- OUTSIDE RECORDS SUMMARY | 2023-12-25 08:21 | XMS_ITS | Encounter Summary ---
Author Organization [facility] Address [address] [place] [address] Care Team Providers Care Support Dba Name Role Phone Dixon Carson MD Primary Care Provider Mingo Aldana MD Primary Car e Provider Shahida Sutton TELEGRAPH EQUIPMENT MAINTAINER SHEET LAYER Primary Care Provi ford Unavailable Herman, Shahida Cummings APRN SHEET LAYER Unavailable Un available Herman, Shahida Cummings APRN SHEET LAYER Unavailable Un available Carolynn Ramon RN Unavailable [phone] Augustine Callaway MD Unavailable Brady Lion MD Unavailable Un available Nima FranceC Unavailable [phone] Camille Chandler PA-C Unavailable [phone] Anabela Barakat APRN SHEET LAYER Unavailable Nima FranceC Unavailable [phone] Basilio Morillo DO Unavailable [phone] Fawad York MD Unavailable [phone] Roopa Almonte MD Unavailable [phone] Augustine Callaway MD Unavailable Maryse Burton [...] Reza MD Unavailable Keerthi Miner APRN SHEET LAYER Unavailable Herman, Shahida Cummnigs APRN SHEET LAYER Unavailable Un available Porsha Michaels APRN SHEET LAYER Unavailable [phone] Paula Reza MD Unavailable Herman, Shahida Cummings APRN SHEET LAYER Unavailable Un available Daylin Ludwig Unavailable [phone] Laurel Velasquez MD Unavailable Daylin Ludwig Unavailable [phone] Paula Reza MD Unavailable Porsha Michaels APRN SHEET LAYER Unavailable [phone] Laurel Velasquez MD Unavailable Herman, Shahida Cummings APRN SHEET LAYER Unavailable Un available Marilin Montaño SHEET LAYER Unavailable [phone] Esha Dewitt MD Unavailable [phone] Heather Mosquera MD Unavailable Paula Reza MD Unavailable Esha Dewitt MD Unavailable [phone] Valdo Escamilla PA-C Unavailable Nohelia AbarcaC Unavailable [phone] Heather Mosquera MD Unavailable Fawad York MD Unavailable Reason for Visit * Reason Onset Date Comments Pt. Information/instruction 06/13/2007 Encounter Details Date Type Department Care Team (Late st Contact Info) Description 06/12/2007 [facility] Advice [address] [address] Dixon Carson MD [address] [address] Pt. 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 Rule Out COVID-19 01/05/2021 01/05/2021 01/06/2021 12:57 PM CDT ESBL 01/05/2021 01/05/2021 Rule Out COVID-19 06/30/2021 06/30/2021 07/01/2021 9:34 AM CDT Rule Out COVID-19 07/25/2021 07/25/2021 07/25/2021 8:02 PM CDT documented as of this encounter Care Teams Support Dba Relationship Specialty Start Date End Date Dixon Carson MD PCP - General 08/10/03 07/21/09 Mingo Aldana MD PCP - General Family Practice 07/22/09 07/12/14 Shahida Sutton APRN SHEET LAYER PCP - General Nurse Practitioner 08/17/14 08/04/21 Shahida Sutton APRN SHEET LAYER PCP - Assigned PCP 07/12/14 05/07/18 Paula Reza MD [address] [facility] 200 [place], [place] [address] PCP - General Internal Medicine 08/05/21 Shahida Sutton APRN SHEET LAYER Assigned PCP 07/12/14 09/30/21 Carolynn Ramon RN Personal Advocate & Liaison (PAL) 12/17/18 08/07/21 [place] [address] [place] [address] Assigned Musculoskeletal Provider 12/26/19 08/21/20 Brady Lion MD Assigned Heart and Vascular Provider 12/26/19 08/14/20 Nima France PA-C 6545 [facility] [address] [place] [address] Assigned Surgical Provider 05/19/20 08/21/20 Camille Chandler PA-C 6545 [facility] [address] [place], [place] [address] Assigned Neuroscience Provider 05/19/20 09/14/20 Anabela Barakat APRN SHEET LAYER 1700 [place] [address] Assigned Heart and Vascular Provider 08/15/20 08/05/21 Nima France PA-C 6545 [facility] 450 [place] [address] Assigned Musculoskeletal Provider 08/22/20 11/13/20 [place] [address] [place], [place] [address] Assigned Musculoskeletal Provider 11/14/20 12/04/20 Fawad York MD 9 [place], [place] [address] Assigned Musculoskeletal Provider 12/05/20 02/05/21 Roopa Almonte MD [address] [facility] 200 [place], [place] [address] Endocrinology, Diabetes, and Metabolism 01/19/21 [place] [address] [facility] 300 [place] [address] Assigned Musculoskeletal Provider 02/06/21 09/16/21 Maryse Burton PA-C 5200 [place] [address] Physician Manager Print Dermatology 04/14/21 Marquita Starkey MD [address] E [facility] 200 [place], [place] [address] Internal Medicine 05/06/21 05/06/21 Roopa Almonte MD [address] [facility] 200 [place], [place] [address] Hospitalist Endocrinology, Diabetes, and Metabolism 05/30/21 Griffin Joshi MD [address] [facility] [address] [place], [place] [address] Cardiovascular Disease 07/25/21 Rina Magallon, RN Lead Plasterer Spray Gun 07/29/21 07/11/22 Griffin Joshi MD [address] [facility] [address] [place] [address] Assigned Heart and Vascular Provider 08/06/21 10/07/21 Roopa Almonte MD [address] [place], [place] [address] Assigned Endocrinology Provider 09/10/21 [place] [address] [facility] [place] [address] Assigned Musculoskeletal Provider 09/17/21 10/14/21 Lydia Bernstein PA-C [address] [place] [address] Assigned PCP 10/01/21 10/21/21 Kate Rosa MariaSHARDAW Community Health Worker 10/06/21 [place] [address] [place] [address] Assigned Musculoskeletal Provider 10/15/21 04/26/23 Paula Reza MD [address] [place] [address] Assigned PCP 10/22/21 12/23/21 Keerthi Miner APRN SHEET LAYER [address] [place] [address] Assigned Heart and Vascular Provider 10/08/21 02/10/22 Shahida Sutton APRN SHEET LAYER Assigned PCP 12/24/21 03/24/22 Porsha Michaels APRN SHEET LAYER [address] [place] [address] Assigned Heart and Vascular Provider 02/11/22 05/12/22 Paula Reza MD [address] [place] [address] Assigned PCP 03/25/22 04/07/22 Shahida Sutton APRN SHEET LAYER [address] [place] [address] Assigned PCP 04/08/22 06/30/22 Daylin Ludwig EP [facility] [address] [place] [address] Cardiac Rehabilitation Therapist 05/16/23 Laurel Velasquez MD [address] [place] [address] Assigned Heart and Vascular Provider 05/13/22 06/30/22 Daylin Ludwig, EP [facility] [address] [place] [address] Cardiac Rehabilitation Therapist 06/08/22 06/09/23 Paula Reza MD [address] [address] Assigned PCP 07/01/22 07/07/22 Porsha Michaels APRN SHEET LAYER [address] [place] [address] Assigned Heart and Vascular Provider 07/01/22 07/07/22 Laurel Velasquez MD [address] [place] [address] Assigned Heart and Vascular Provider 07/08/22 08/04/22 Shahida Sutton APRN SHEET LAYER Assigned PCP 07/08/22 09/08/22 Marilin Montaño, SHEET LAYER [address] [place] [address] Assigned Heart and Vascular Provider 08/05/22 Esha Dewitt MD 420 [facility] 36 [place] [address] Gastroenterology 09/06/22 Heather Mosquera MD [address] [place] [address] Internal Medicine 09/06/22 Paula Reza MD [address] [facility] 200 [place] [address] Assigned PCP 09/09/22 01/05/23 Esha Dewitt MD [address] [address] Assigned Gastroenterology Provider 09/23/22 Valdo Escamilla PA-C [address] [facility] [address] [place] [address] Assigned Neuroscience Provider 09/30/22 Nohelia Abarca PA-C 2450 [place] [address] Physician Manager Print Gastroenterology 10/03/22 Heather Mosquera MD [address] [place] [address] Assigned PCP 01/06/23 Fawad [place] MD 909 [place], [place] [address] Assigned Musculoskeletal Provider 04/27/23 06/25/23 documented as of this encounter
--- OUTSIDE RECORDS SUMMARY | 2023-12-25 08:22 | XMS_ITS ---
Author Organization [facility] Address [address] [place] [address] Care Team Providers Care Shower Attendant Name Role Phone Roopa Almonte MD Unavailable [phone] Maryse BurtonC Unavailable [phone] Roopa Almonte MD Unavailable [phone] Griffin Joshi MD Unavailable Paula Reza MD Primary Care Provider Roopa Almonte MD Unavailable Daylin Ludwig Unavailable Marilin Montaño CNP Unavailable [phone] Esha Dewitt MD Unavailable [phone] Heather Mosquera MD Unavailable [phone] Esha Dewitt MD Unavailable [phone] Valdo Escamilla-C Unavailable [phone] Nohelia Abarca PA-C Unavailable [phone] Heather Mosquera MD Unavailable [phone] Diabetes Self-Management Education Status:Enrolled (Active) Start date:01/19/2022 Enrollment date:02/23/2022 Current support & services provided:Type 2 Diabetes Management, Individual Education Continued Care and Services Coordination
--- OUTSIDE RECORDS SUMMARY | 2023-12-25 08:22 | XMS_ITS | Encounter Summary ---
Author Organization [facility] Address [address] [place] [address] Care Team Providers Care Sizer Hand Name Role Phone Dixon Carson MD Primary Care Provider Mingo Aldana MD Primary Car e Provider Shahida Sutton ENERGY EFFICIENCY ENGINEER DIFFUSION FURNACE OPERATOR Primary Care Provi ford Unavailable Herman, Shahida Cummings APRN DIFFUSION FURNACE OPERATOR Unavailable Un available Herman, Shahida Cummings APRN DIFFUSION FURNACE OPERATOR Unavailable Un available Carolynn Ramon RN Unavailable [phone] Augustine Callaway MD Unavailable Brady Lion MD Unavailable Un available Nima FranceC Unavailable [phone] Camille Chandler PA-C Unavailable [phone] Anabela Barakat APRN DIFFUSION FURNACE OPERATOR Unavailable Nima FranceC Unavailable [phone] Basilio Morillo DO Unavailable [phone] Fawad York MD Unavailable [phone] Roopa Almonte MD Unavailable [phone] Augustine Callaway MD Unavailable Maryse Burton [...] Paula Reza MD Unavailable Keerthi Miner APRN DIFFUSION FURNACE OPERATOR Unavailable Herman, Shahida Cummings APRN DIFFUSION FURNACE OPERATOR Unavailable Un available Porsha Michaels APRN DIFFUSION FURNACE OPERATOR Unavailable [phone] Paula Reza MD Unavailable Herman, Shahida Cummings APRN DIFFUSION FURNACE OPERATOR Unavailable Un available Daylin Ludwig Unavailable [phone] Laurel Velasquez MD Unavailable Daylin Ludwig Unavailable [phone] Paula Reza MD Unavailable Porsha Michaels APRN DIFFUSION FURNACE OPERATOR Unavailable [phone] Laurel Velasquez MD Unavailable Herman, Shahida Cummings APRN DIFFUSION FURNACE OPERATOR Unavailable Un available Marilin Montaño DIFFUSION FURNACE OPERATOR Unavailable [phone] Esha Dewitt MD Unavailable [phone] Heather Mosquera MD Unavailable Paula Reza MD Unavailable Esha Dewitt MD Unavailable [phone] Valdo Escamilla PA-C Unavailable Nohelia AbarcaC Unavailable [phone] Heather Mosquera MD Unavailable Fawad York MD Unavailable Encounter Details Date Type Department Care Team (Late st Contact Info) Description 08/20/2006 Jake Lancasterporfirio [address] [address] Dixon Carson MD [address] [address] Social History Tobacco Use Types [...] Out COVID-19 02/15/2020 02/15/2020 02/16/2020 2:32 PM GOVERNMENT AFFAIRS FELLOW Rule Out COVID-19 01/05/2021 01/05/2021 01/06/2021 12:57 PM CDT ESBL 01/05/2021 01/05/2021 Rule Out COVID-19 06/30/2021 06/30/2021 07/01/2021 9:34 AM CDT Rule Out COVID-19 07/25/2021 07/25/2021 07/25/2021 8:02 PM CDT documented as of this encounter Care Teams Sizer Hand Relationship Specialty Start Date End Date Dixon Carson MD PCP - General 08/10/03 07/21/09 Mingo Aldana MD PCP - General Family Practice 07/22/09 07/12/14 Shahida Sutton APRN DIFFUSION FURNACE OPERATOR PCP - General Nurse Practitioner 08/17/14 08/04/21 Shahida Sutton APRN DIFFUSION FURNACE OPERATOR PCP - Assigned PCP 07/12/14 05/07/18 Paula Reza MD [address] [facility] [address] [place] [address] PCP - General Internal Medicine 08/05/21 Shahida Sutton APRN DIFFUSION FURNACE OPERATOR Assigned PCP 07/12/14 09/30/21 Carolynn Ramon, KASIE Personal Advocate & Liaison (PAL) 12/17/18 08/07/21 [place] [address] [place] [address] Assigned Musculoskeletal Provider 12/26/19 08/21/20 Brady Lion MD Assigned Heart and Vascular Provider 12/26/19 08/14/20 Nima France PA-C [address] [place] [address] Assigned Surgical Provider 05/19/20 08/21/20 Camille Chandler PA-C [address]45 [facility] [address] [place] [address] Assigned Neuroscience Provider 05/19/20 09/14/20 Anabela Barakat APRN DIFFUSION FURNACE OPERATOR [address] [place] [address] Assigned Heart and Vascular Provider 08/15/20 08/05/21 Nima France PA-C [address]45 [facility] [address] [place] [address] Assigned Musculoskeletal Provider 08/22/20 11/13/20 [place] [address] [place] [address] Assigned Musculoskeletal Provider 11/14/20 12/04/20 Fawad York MD [address] [place], [place] [address] Assigned Musculoskeletal Provider 12/05/20 02/05/21 Roopa Almonte MD [address] [facility] 200 [place] [address] Endocrinology, Diabetes, and Metabolism 01/19/21 [place] [address] [facility] [address] [place] [address] Assigned Musculoskeletal Provider 02/06/21 09/16/21 Maryse Burton PA-C [address] [facility] [address] Physician Primer And Powder Canning Leader Dermatology 04/14/21 Marquita Starkey MD [address] [facility] [address] [place] [address] Internal Medicine 05/06/21 05/06/21 Roopa Almonte MD [address] [facility] 200 [place] [address] Hospitalist Endocrinology, Diabetes, and Metabolism 05/30/21 Griffin Joshi MD [address] [place] [address] Cardiovascular Disease 07/25/21 Rina Magallon RN Lead Director Business Management 07/29/21 07/11/22 Griffin Joshi MD [address] [place] [address] Assigned Heart and Vascular Provider 08/06/21 10/07/21 Roopa Almonte MD [address] [place], [place] [address] Assigned Endocrinology Provider 09/10/21 [place] [address] [facility] [place] [address] Assigned Musculoskeletal Provider 09/17/21 10/14/21 Lydia Bernstein PA-C [address] [place] [id number] Assigned PCP 10/01/21 10/21/21 Rosa Maria Love CHW Community Health Worker 10/06/21 [place] [address] [place] [address] Assigned Musculoskeletal Provider 10/15/21 04/26/23 Paula Reza MD [address] [place] [address] Assigned PCP 10/22/21 12/23/21 Keerthi Miner APRN DIFFUSION FURNACE OPERATOR [address] [place] [id number] Assigned Heart and Vascular Provider 10/08/21 02/10/22 Shahida Sutton APRN DIFFUSION FURNACE OPERATOR Assigned PCP 12/24/21 03/24/22 Porsha Michaels APRN DIFFUSION FURNACE OPERATOR [address] [place] [address] Assigned Heart and Vascular Provider 02/11/22 05/12/22 Paula Reza MD [address] [place] [address] Assigned PCP 03/25/22 04/07/22 Shahida Sutton APRN DIFFUSION FURNACE OPERATOR [address] [place] [address] Assigned PCP 04/08/22 06/30/22 Daylin Ludwig EP [facility] [address] [address] Cardiac Rehabilitation Therapist 05/16/23 Laurel Velasquez MD [address] [place] [address] Assigned Heart and Vascular Provider 05/13/22 06/30/22 Daylin Ludwig EP [facility] [address] [address] [address] Cardiac Rehabilitation Therapist 06/08/22 06/09/23 Paula Reza MD [address] [facility] [address] [place], [place] [address] Assigned PCP 07/01/22 07/07/22 Porsha Michaels APRN DIFFUSION FURNACE OPERATOR [address] [place] [address] Assigned Heart and Vascular Provider 07/01/22 07/07/22 Laurel Velasquez MD [address] [place] [address] Assigned Heart and Vascular Provider 07/08/22 08/04/22 Shahida Sutton APRN DIFFUSION FURNACE OPERATOR Assigned PCP 07/08/22 09/08/22 Marilin Montaño, DIFFUSION FURNACE OPERATOR [address] [place] [address] Assigned Heart and Vascular Provider 08/05/22 Esha Dewitt MD 420 [facility] 36 [place], [place] [address] Gastroenterology 09/06/22 Heather Mosquera MD [address] [place], [place] [address] Internal Medicine 09/06/22 Paula Reza MD [address] [facility] [address] [place], [place] [address] Assigned PCP 09/09/22 01/05/23 Esha Dewitt MD 420 [facility] 36 [place], [place] [address] Assigned Gastroenterology Provider 09/23/22 Valdo Escamilla PA-C [address] [place], [place] [address] Assigned Neuroscience Provider 09/30/22 Nohelia Abarca PA-C [address] [place], [place] [address] Physician Primer And Powder Canning Leader Gastroenterology 10/03/22 Heather Mosquera MD [address] [facility] [address] [place], [place] [address] Assigned PCP 01/06/23 Fawad York MD [address] [place], [place] [address] Assigned Musculoskeletal Provider 04/27/23 06/25/23 documented as of this encounter
--- OUTSIDE RECORDS SUMMARY | 2023-12-25 08:22 | XMS_ITS | Encounter Summary ---
Author Organization [facility] Address [address] [place] [address] Care Team Providers Care Shell Assembler Name Role Phone Dixon Carson MD Primary Care Provider Mingo Aldana MD Primary Car e Provider Shahida Sutton INORGANIC CHEMIST FIELD OPERATIONS MANAGER Primary Care Provi ford Unavailable Herman, Shahida Cummings APRN FIELD OPERATIONS MANAGER Unavailable Un available Herman, Shahida Cummings APRN FIELD OPERATIONS MANAGER Unavailable Un available Carolynn Ramon RN Unavailable [phone] Augustine Callaway MD Unavailable Brady Lion MD Unavailable Un available Nima FranceC Unavailable [phone] Camille Chandler PA-C Unavailable [phone] Anabela Barakat APRN FIELD OPERATIONS MANAGER Unavailable Nima FranceC Unavailable [phone] Basilio Morillo DO Unavailable [phone] Fawad York MD Unavailable [phone] Roopa Almonte MD Unavailable [phone] Augustine Callaway MD Unavailable Maryse Burton [...] Reza MD Unavailable Keerthi Miner APRN FIELD OPERATIONS MANAGER Unavailable Herman, Shahida Cummings APRN FIELD OPERATIONS MANAGER Unavailable Un available Porsha Michaels APRN FIELD OPERATIONS MANAGER Unavailable [phone] Paula Reza MD Unavailable Herman, Shahida Cummings APRN FIELD OPERATIONS MANAGER Unavailable Un available Daylin Ludwig Unavailable [phone] Laurel Velasquez MD Unavailable Daylin Ludwig Unavailable [phone] Paula Reza MD Unavailable Porsha Michaels APRN FIELD OPERATIONS MANAGER Unavailable [phone] Laurel Velasquez MD Unavailable Herman, Shahida Cummings APRN FIELD OPERATIONS MANAGER Unavailable Un available Marilin Montaño FIELD OPERATIONS MANAGER Unavailable [phone] Esha Dewitt MD Unavailable [phone] Heather Mosquera MD Unavailable Paula Reza MD Unavailable Esha Dewitt MD Unavailable [phone] Ayserick Lyle Deo WEBB Unavailable [phone] Nohelia AbarcaC Unavailable [phone] Heather Mosquera MD Unavailable Fawad York MD Unavailable [phone] Reason for Visit * Reason Onset Date Comments MyChart Communication 06/12/2006 Encounter Details Date Type Department Care Team (Latest Contact Info) Description 06/12/2006 [facility] [address] [address] Dixon Carson MD [address] [address] MyChart Communication Social History Tobacco Use Types [...] Out COVID-19 02/15/2020 02/15/2020 02/16/2020 2:32 PM EKG TECHNICIAN Rule Out COVID-19 01/05/2021 01/05/2021 01/06/2021 12:57 PM CDT ESBL 01/05/2021 01/05/2021 Rule Out COVID-19 06/30/2021 06/30/2021 07/01/2021 9:34 AM CDT Rule Out COVID-19 07/25/2021 07/25/2021 07/25/2021 8:02 PM CDT documented as of this encounter Care Teams Shell Assembler Relationship Specialty Start Date End Date Dixon Carson MD PCP - General 08/10/03 07/21/09 Mingo Aldana MD PCP - General Family Practice 07/22/09 07/12/14 Shahida Sutton APRN FIELD OPERATIONS MANAGER PCP - General Nurse Practitioner 08/17/14 08/04/21 Shahida Sutton APRN FIELD OPERATIONS MANAGER PCP - Assigned PCP 07/12/14 05/07/18 Paula Reza MD [address] [address] PCP - General Internal Medicine 08/05/21 Shahida Sutton APRN FIELD OPERATIONS MANAGER Assigned PCP 07/12/14 09/30/21 Carolynn Ramon RN Personal Advocate & Liaison (PAL) 12/17/18 08/07/21 [place] [address] [place] [address] Assigned Musculoskeletal Provider 12/26/19 08/21/20 Brady Lion MD Assigned Heart and Vascular Provider 12/26/19 08/14/20 Nima France PA-C [address] [address] [place], [place] [address] Assigned Surgical Provider 05/19/20 08/21/20 Camille Chandler PA-C [address] [address] [place] [address] Assigned Neuroscience Provider 05/19/20 09/14/20 Anabela Barakat APRN FIELD OPERATIONS MANAGER 1700 [place] [address] Assigned Heart and Vascular Provider 08/15/20 08/05/21 Nima France PA-C [address] [address] Assigned Musculoskeletal Provider 08/22/20 11/13/20 [place] [address] [facility] [place] [address] Assigned Musculoskeletal Provider 11/14/20 12/04/20 Fawad York MD [address] [place] [address] Assigned Musculoskeletal Provider 12/05/20 02/05/21 Roopa Almonte MD [address] [facility] 200 [place] [address] Endocrinology, Diabetes, and Metabolism 01/19/21 [place] [address] [facility] 300 [place] [address] Assigned Musculoskeletal Provider 02/06/21 09/16/21 Maryse Burton PA-C [address]200 [place] [address] Physician Outpatient Pharmacy Manager Dermatology 04/14/21 Marquita Starkey MD [address] [facility] 200 [place] [address] Internal Medicine 05/06/21 05/06/21 Roopa Almonte MD [address] [facility] 200 [place] [address] Hospitalist Endocrinology, Diabetes, and Metabolism 05/30/21 Griffin Joshi MD [address] [facility] [address] [place] [address] Cardiovascular Disease 07/25/21 Rina Magallon, RN Lead Generator Operator Straight Bevel Gear 07/29/21 07/11/22 Griffin Joshi MD [address] [facility] [address] [place] [address] Assigned Heart and Vascular Provider 08/06/21 10/07/21 Roopa Almonte MD [address] [facility] 200 [place] [address] Assigned Endocrinology Provider 09/10/21 [place] [address] [facility] [place] [address] Assigned Musculoskeletal Provider 09/17/21 10/14/21 Lydia Bernstein PA-C [address] [place] [address] Assigned PCP 10/01/21 10/21/21 Rosa Maria Love [facility] Community Health Worker 10/06/21 [place] [address] [facility] [address] [place] [address] Assigned Musculoskeletal Provider 10/15/21 04/26/23 Paula Reza MD [address] [facility] 200 [place] [address] Assigned PCP 10/22/21 12/23/21 Keerthi Miner APRN FIELD OPERATIONS MANAGER [address] [place] [address] Assigned Heart and Vascular Provider 10/08/21 02/10/22 Shahida Sutton APRN FIELD OPERATIONS MANAGER Assigned PCP 12/24/21 03/24/22 Porsha Michaels APRN FIELD OPERATIONS MANAGER [address] [place] [address] Assigned Heart and Vascular Provider 02/11/22 05/12/22 Paula Reza MD [address] [place] [address] Assigned PCP 03/25/22 04/07/22 Shahida Sutton APRN FIELD OPERATIONS MANAGER [address] [place] [address] Assigned PCP 04/08/22 06/30/22 Daylin Ludwig, [facility] [address] [place] [address] Cardiac Rehabilitation Therapist 05/16/23 Laurel Velasquez MD [address] [place] [address] Assigned Heart and Vascular Provider 05/13/22 06/30/22 Daylin Ludwig, [facility] [address] [address] Cardiac Rehabilitation Therapist 06/08/22 06/09/23 Paula Reza MD [address] [place] [address] Assigned PCP 07/01/22 07/07/22 Porsha Michaels APRN FIELD OPERATIONS MANAGER [address] [address] Assigned Heart and Vascular Provider 07/01/22 07/07/22 Laurel Velasquez MD [address] [address] Assigned Heart and Vascular Provider 07/08/22 08/04/22 Shahida Sutton APRN FIELD OPERATIONS MANAGER Assigned PCP 07/08/22 09/08/22 Marilin Montaño CNP [address] [facility] [place] [address] Assigned Heart and Vascular Provider 08/05/22 Esha Dewitt MD 420 [facility] 36 [place], [place] [address] MD Gastroenterology 09/06/22 Heather Mosquera MD [address] [facility] [address] [place], [place] [address] Internal Medicine 09/06/22 Paula Reza MD [address] [facility] 200 [place], [place] [address] Assigned PCP 09/09/22 01/05/23 Esha Dewitt MD 420 [facility] 36 [place], [place] [address] Assigned Gastroenterology Provider 09/23/22 Valdo Escamilla PA-C [address] [facility] [address] [place] [address] Assigned Neuroscience Provider 09/30/22 Nohelia Abarca PA-C [address] [place] [address] Physician Outpatient Pharmacy Manager Gastroenterology 10/03/22 Heather Mosquera MD [address] [facility] 150 [place] [address] Assigned PCP 01/06/23 Fawad York MD 909 [place] [address] Assigned Musculoskeletal Provider 04/27/23 06/25/23 documented as of this encounter
--- OUTSIDE RECORDS SUMMARY | 2023-12-25 08:22 | XMS_ITS | Encounter Summary ---
Author Organization [facility] Address [address] [place] [address] Care Team Providers Care Flooring Sales Manager Name Role Phone Dixon Carson MD Primary Care Provider Mingo Aldana MD Primary Car e Provider Shahida Sutton SPIRAL GEAR GENERATOR MENTAL MEASUREMENTS TEACHER Primary Care Provi ford Unavailable Herman, Shahida Cummings APRN MENTAL MEASUREMENTS TEACHER Unavailable Un available Herman, Shahida Cummings APRN MENTAL MEASUREMENTS TEACHER Unavailable Un available Carolynn Ramon RN Unavailable [phone] Augustine Callaway MD Unavailable Brady Lion MD Unavailable Un available Nima FranceC Unavailable [phone] Camille Chandler PA-C Unavailable [phone] Anabela Barakat APRN MENTAL MEASUREMENTS TEACHER Unavailable Nima FranceC Unavailable [phone] Basilio Morillo DO Unavailable [phone] Fawad York MD Unavailable [phone] Roopa Almonte MD Unavailable [phone] Augustine Callaway MD Unavailable Maryse Burton [...] Paula Reza MD Unavailable Keerthi Miner APRN MENTAL MEASUREMENTS TEACHER Unavailable Herman, Shahida Cummings APRN MENTAL MEASUREMENTS TEACHER Unavailable Un available Porsha Michaels APRN MENTAL MEASUREMENTS TEACHER Unavailable [phone] Paula Reza MD Unavailable Herman, Shahida Cummings APRN MENTAL MEASUREMENTS TEACHER Unavailable Un available Daylin Ludwig Unavailable [phone] Laurel Velasquez MD Unavailable Daylin Ludwig Unavailable [phone] Paula Reza MD Unavailable Porsha Michaels APRN MENTAL MEASUREMENTS TEACHER Unavailable [phone] Laurel Velaqsuez MD Unavailable Herman, Shahida Cummings APRN MENTAL MEASUREMENTS TEACHER Unavailable Un available Marilin Montaño MENTAL MEASUREMENTS TEACHER Unavailable Esha Dewitt MD Unavailable [phone] Heather Mosquera MD Unavailable Paula Reza MD Unavailable Esha Dewitt MD Unavailable [phone] Valdo Escamilla PA-C Unavailable Nohelia Abarca PA-C Unavailable [phone] Heather Mosquera MD Unavailable [phone] Fawad York MD Unavailable [phone] Encounter Details Date Type Department Care Team (Late st Contact Info) Description 01/09/2007 [facility] Medical Advice [address] [address] Mingo Aldana MD [facility] [address] [place] [address] OTHER MALAISE AND FATIGUE (Primary [...] insurance company for increased quantity. Porsha Marley SEAT JOINER CAL BRIGHTENER MAKER HELPER documented in this encounter Plan of Treatment Not on file documented as of this encounter Visit Diagnoses Diagnosis Other malaise and fatigue- Primary documented in this encounter Additional Health Concerns Infection Onset Date Last Indicated Resolved Time Rule Out COVID-19 02/15/2020 02/15/2020 02/16/2020 2:32 PM OPTICAL BRIGHTENER MAKER HELPER Rule Out COVID-19 01/05/2021 01/05/2021 01/06/2021 12:57 PM CDT ESBL 01/05/2021 01/05/2021 Rule Out COVID-19 06/30/2021 06/30/2021 07/01/2021 9:34 AM CDT Rule Out COVID-19 07/25/2021 07/25/2021 07/25/2021 8:02 PM CDT documented as of this encounter Care Teams Flooring Sales Manager Relationship Specialty Start Date End Date Dixon Carson MD PCP - General 08/10/03 07/21/09 Mingo Aldana MD PCP - General Family Practice 07/22/09 07/12/14 Shahida Sutton APRN MENTAL MEASUREMENTS TEACHER PCP - General Nurse Practitioner 08/17/14 08/04/21 Shahida Sutton APRN MENTAL MEASUREMENTS TEACHER PCP - Assigned PCP 07/12/14 05/07/18 Paula Reza MD [address] [facility] [address] [place] [address] PCP - General Internal Medicine 08/05/21 Shahida Sutton APRN MENTAL MEASUREMENTS TEACHER Assigned PCP 07/12/14 09/30/21 Carolynn Ramon, KASIE Personal Advocate & Liaison (PAL) 12/17/18 08/07/21 [place] [address] [place] [address] Assigned Musculoskeletal Provider 12/26/19 08/21/20 Brady Lion MD Assigned Heart and Vascular Provider 12/26/19 08/14/20 Nima France PA-C [address] [place] [address] Assigned Surgical Provider 05/19/20 08/21/20 Camille Chandler PA-C [address] [facility] [address] [place], [place] [address] Assigned Neuroscience Provider 05/19/20 09/14/20 Anabela Barakat APRN MENTAL MEASUREMENTS TEACHER [address] [place] [address] Assigned Heart and Vascular Provider 08/15/20 08/05/21 Nima France PA-C [address] [facility] [address] [place] [address] Assigned Musculoskeletal Provider 08/22/20 11/13/20 [place] [address] [facility], [facility] [place] [address] Assigned Musculoskeletal Provider 11/14/20 12/04/20 Fawad York MD [address] [place], [place] [address] Assigned Musculoskeletal Provider 12/05/20 02/05/21 Roopa Almonte MD [address] [facility] [address] [place], [place] [address] Endocrinology, Diabetes, and Metabolism 01/19/21 [place] [address] [facility] [address] [place] [address] Assigned Musculoskeletal Provider 02/06/21 09/16/21 Maryse Burton PA-C [address] [place] [address] Physician Foundry Technician Dermatology 04/14/21 Marquita Starkey MD [address] [facility] [address] [place], [place] [address] Internal Medicine 05/06/21 05/06/21 Roopa Almonte MD [address] [address] Hospitalist Endocrinology, Diabetes, and Metabolism 05/30/21 Griffin Joshi MD [address] [place] [id number] [place] [address] Cardiovascular Disease 07/25/21 Rina Magallon, RN Lead Filing Clerk 07/29/21 07/11/22 Griffin Joshi MD [address] [place] [address] [place] [address] Assigned Heart and Vascular Provider 08/06/21 10/07/21 Roopa Almonte MD [address] [address] [place], [place] [address] Assigned Endocrinology Provider 09/10/21 [place] [address] [facility] [address] [place] [address] Assigned Musculoskeletal Provider 09/17/21 10/14/21 Lydia Bernstein PA-C [address] [place] [address] Assigned PCP 10/01/21 10/21/21 Rosa Maria Love Cristina Community Health Worker 10/06/21 [place] [address] [address] [place] [address] Assigned Musculoskeletal Provider 10/15/21 04/26/23 Paula Reza MD [address] [place] [address] Assigned PCP 10/22/21 12/23/21 Keerthi Miner APRN MENTAL MEASUREMENTS TEACHER [address] [place] [address] Assigned Heart and Vascular Provider 10/08/21 02/10/22 Shahida Sutton APRN MENTAL MEASUREMENTS TEACHER Assigned PCP 12/24/21 03/24/22 Porsha Michaels APRN MENTAL MEASUREMENTS TEACHER [address] [place] [address] Assigned Heart and Vascular Provider 02/11/22 05/12/22 Paula Reza MD [address] [place] [address] Assigned PCP 1/21/23 2/3/23 Shahida Sutton APRN MENTAL MEASUREMENTS TEACHER [address] [place] [address] Assigned PCP 04/08/22 06/30/22 Daylin Ludwig, [facility] [address] [place] [address] Cardiac Rehabilitation Therapist 05/16/23 Laurel Velasquez MD [address] [place] [address] Assigned Heart and Vascular Provider 05/13/22 06/30/22 Daylin Ludwig, [facility] [address] [place] [address] Cardiac Rehabilitation Therapist 06/08/22 06/09/23 Paula Reza MD [address] [address] Assigned PCP 07/01/22 07/07/22 Porsha Michaels APRN MENTAL MEASUREMENTS TEACHER [address] [place] [address] Assigned Heart and Vascular Provider 07/01/22 07/07/22 Laurel Velasquez MD [address] [place] [address] Assigned Heart and Vascular Provider 07/08/22 08/04/22 Shahida Sutton APRN MENTAL MEASUREMENTS TEACHER Assigned PCP 07/08/22 09/08/22 Marilin Montaño, MENTAL MEASUREMENTS TEACHER [address] [place] [address] Assigned Heart and Vascular Provider 08/05/22 Esha Dewitt MD [address] [facility] 36 [place] [address] Gastroenterology 09/06/22 Heather Mosquera MD [address] [place], [place] [address] Internal Medicine 09/06/22 Paula Reza MD [address] [facility] [address] [place], [place] [address] Assigned PCP 09/09/22 01/05/23 Esha Dewitt MD [address] [facility] 36 [place], [place] [address] Assigned Gastroenterology Provider 09/23/22 Valdo Escamilla PA-C [address] [facility] [address] [place] [address] Assigned Neuroscience Provider 09/30/22 Nohelia Abarca PA-C [address] [place] [address] Physician Foundry Technician Gastroenterology 10/03/22 Heather Mosquera MD [address] [place] [address] Assigned PCP 01/06/23 Fawad York MD [address] [place] [address] Assigned Musculoskeletal Provider 04/27/23 06/25/23 documented as of this encounter
--- OUTSIDE RECORDS SUMMARY | 2023-12-25 08:22 | XMS_ITS | Continuity of Care Document ---
Author Organization [facility] Address [address] [place] [address] Phone Care Team Providers Care Metal Roofing Mechanic Name Role Phone Rob Nice MD Unavailable Unavailable Allergies, Adverse Reactions, Alerts Substance Reaction Status Criticality lisinopril Active No Information Medications Medication Instructions Dosage Effective Dates (start - stop) Status Comments aspirin, buffered 81 mg Tab Take 1 daily - Active Flexeril 10 mg Tab Take 1/2-1 tablet 3 times daily as needed - Active Relpax 40 mg Tab take 1 tablet (40MG) by oral route ; if headache returns, the dose may be repeated after 2 hours, but no more than two doses should be given within a 24-hour period. 40 MG - Active Amaryl 4 mg Tab take 1 tablet (4MG) by oral route every day - Active hydrocodone-acetaminop hen 10 mg-325 mg Tab take 1 tablet by oral route every 8 hours as needed for pain - Active Levemir 100 unit/mL Sub-Q 20units twice daily - Active lorazepam 1 mg Tab take 1 tablet (1MG) by oral route1-3 times every day as needed - Active metformin 850 mg Tab take 1 tablet (850M G) by oral route 2 times every day with morning and evening meals 850 MG - Active metoprolol succinate ER 50 mg 24 hr Tab take 1 tablet (50MG) by oral route every day 50 MG - Active Provigil 200 mg Tab take 1 tablet (200MG ) by oral route every day in the morning 200 MG - Active Nasonex 50 mcg/actuation [place] spray 2 spray by intranasal route every day in each nostril - Active multivitamin Cap take 1 capsule by oral route every day - Active naproxen sodium 550 mg Tab take 1 tablet (550MG) by oral route every 12 hours as needed 550 MG - Active Protonix 40 mg Tab take 1 tablet (40MG) by oral route every day 40 MG - Active Maxalt 10 mg Tab take 1 tablet (10MG) by oral route once, may repeat at 2 hour intervals; do not exceed 30 mg in 24 hours 10 MG - Active Ambien CR 12.5 mg Tab take 1 tablet (12.5MG) by oral route every day at bedtime 12.5 MG - Active simvastatin 40 mg Tab take 1 tablet (40M G) by oral route every day in the evening 40 MG - Active Procedures Procedure Date Office Consultation [...] follow up testing ofpositive sera with both NJ-3 and MPO-ANCA enzyme immunoassays. Asmany as 5% [...] defi ciency has been defined by the Foreman ofMedicine and an Endocrine Society practice guideline as alevel of serum 25-OH vitamin D less than 20 ng/mL (1,2).The Endocrine Society went on to further define vitamin Dinsufficiency as a level between 21 and 29 ng/mL (2).1. IOM (Foreman of Medicine). 2010. Dietary reference intakes for [...] mL/min /1.73 m2 Final If patient is -Polish multiply result by 1.210 Panel Description: CPK [...] , [address], [place], [address], [place] tel:[phone] [facility] , Joint Pain (chief complaint) Pain in joint involving multiple sitesMyalgia and myositis, unspecifiedF atigue / MalaiseUnspe cified sinusitis (chronic)Lum bago 4-201 2 Arlet Rivas. [facility] [address], [place], [address], [place]. tel:[phone] Referring Provider: Rob Faustin, [facility] [address], [place], [address]. tel:[phone] Family History Family Member Type Diagnosis Age At Onset Mother Problem (finding) Fibromyalgia Sister Problem (finding) multiple sclerosis (Cau se Of ) Mother Problem (finding) Zoezdhm-Nawbe-Wryio dis ease Mother Problem (finding) rheumatoid arthritis Sister Problem (finding) Problem (finding) Payers Payer name Insurance type Covered republican ID Luz decker(s) Medica [id number] Social History Type Description Quantity Date Captured [...]
--- OUTSIDE RECORDS SUMMARY | 2023-12-25 08:22 | XMS_ITS | Encounter Summary ---
Author Organization [facility] Address [address] [place] [address] Care Team Providers Care Turntable Worker Name Role Phone Dixon Carsno MD Primary Care Provider Mingo Aldana MD Primary Car e Provider Shahida Sutton RAILROAD CAR CHECKER MD OPHTHALMOLOGIST Primary Care Provi ford Unavailable Herman, Shahida Cummings APRN MD OPHTHALMOLOGIST Unavailable Un available Herman, Shahida Cummings APRN MD OPHTHALMOLOGIST Unavailable Un available Carolynn Ramon RN Unavailable [phone] Augustine Callaway MD Unavailable Brady Lion MD Unavailable Un available Nima FranceC Unavailable [phone] Camille Chandler PA-C Unavailable [phone] Anabela Barakat APRN MD OPHTHALMOLOGIST Unavailable Nima FranceC Unavailable [phone] Basilio Morillo DO Unavailable [phone] Fawad York MD Unavailable [phone] Roopa Almonte MD Unavailable [phone] Augustine Callaway MD Unavailable Maryse Burton [...] Paula Reza MD Unavailable Keerthi Miner APRN MD OPHTHALMOLOGIST Unavailable Herman, Shahida Cummings APRN MD OPHTHALMOLOGIST Unavailable Un available Porsha Michaels APRN MD OPHTHALMOLOGIST Unavailable [phone] Paula Reza MD Unavailable Herman, Shahida Cummings APRN MD OPHTHALMOLOGIST Unavailable Un available Daylin Ludwig Unavailable [phone] Laurel Velasquez MD Unavailable Daylin Ludwig Unavailable [phone] Paula Reza MD Unavailable Porsha Michaels APRN MD OPHTHALMOLOGIST Unavailable [phone] Laurel Velasquez MD Unavailable Herman, Shahida Cummings APRN MD OPHTHALMOLOGIST Unavailable Un available Marilin Montaño MD OPHTHALMOLOGIST Unavailable Esha Dewitt MD Unavailable [phone] Heather Mosquera MD Unavailable Paula Reza MD Unavailable Esha Dewitt MD Unavailable [phone] Andi Valdo Desouza PA-C Unavailable [phone] Nohelia AbarcaC Unavailable [phone] Heather Mosquera MD Unavailable [phone] Fawad York MD Unavailable [phone] Reason for Visit * Reason Onset Date Comments MyChart Communication 12/31/2006 counseling ? Encounter Details Date Type Department Care Team (Late st Contact Info) Description 12/28/2006 My[facility] Medical [address] [address] Mingo Aldana MD [facility] [address] [place], [place] [id number] MyChart Communication (counseling ?) Social History Tobacco [...] PM CDT Can we refer patient to [facility] psychologist at the [facility] in [place]. [phone] [facility] documented in this encounter Plan of Treatment Not on file documented as of this encounter Visit Diagnoses Not on filedocumented in this encounter Additional Health Concerns Infection Onset Date Last Indicated Resolved Time Rule Out COVID-19 02/15/2020 02/15/2020 02/16/2020 2:32 PM TECHNICAL SERVICES ASSISTANT Rule Out COVID-19 01/05/2021 01/05/2021 01/06/2021 12:57 PM CDT ESBL 01/05/2021 01/05/2021 Rule Out COVID-19 06/30/2021 06/30/2021 07/01/2021 9:34 AM CDT Rule Out COVID-19 07/25/2021 07/25/2021 07/25/2021 8:02 PM CDT documented as of this encounter Care Teams Turntable Worker Relationship Specialty Start Date End Date Dixon Carson MD PCP - General 08/10/03 07/21/09 Mingo Aldana MD PCP - General Family Practice 07/22/09 07/12/14 Shahida Sutton APRN MD OPHTHALMOLOGIST PCP - General Nurse Practitioner 08/17/14 08/04/21 Shahida Sutton APRN MD OPHTHALMOLOGIST PCP - Assigned PCP 07/12/14 05/07/18 Paula Reza MD [address] [facility] [facility] [address] [place] [address] PCP - General Internal Medicine 08/05/21 Shahida Sutton APRN MD OPHTHALMOLOGIST Assigned PCP 07/12/14 09/30/21 Carolynn Ramon, KASIE Personal Advocate & Liaison (PAL) 12/17/18 08/07/21 [place] [address] [place] [address] Assigned Musculoskeletal Provider 12/26/19 08/21/20 Brady Lion MD Assigned Heart and Vascular Provider 12/26/19 08/14/20 Nima France PA-C [address] [place] [address] Assigned Surgical Provider 05/19/20 08/21/20 Camille Chandler PA-C [address] [place] [address] Assigned Neuroscience Provider 05/19/20 09/14/20 Anabela Barakat APRN MD OPHTHALMOLOGIST [address] [place] [address] Assigned Heart and Vascular Provider 08/15/20 08/05/21 Nima France PA-C [address] [place], [place] [address] Assigned Musculoskeletal Provider 08/22/20 11/13/20 [place] [address] [facility] [place] [address] Assigned Musculoskeletal Provider 11/14/20 12/04/20 Fawad York MD [address] [place], [place] [address] Assigned Musculoskeletal Provider 12/05/20 02/05/21 Roopa Almonte MD [address] [facility] [address] [place] [address] Endocrinology, Diabetes, and Metabolism 01/19/21 [place] [address] [facility] [address] [place] [address] Assigned Musculoskeletal Provider 02/06/21 09/16/21 Maryse Burton PA-C [address] [place] [address] Physician Gas Fitter Apprentice Dermatology 04/14/21 Marquita Starkey MD [address] [facility] [address] [place] [address] Internal Medicine 05/06/21 05/06/21 Roopa Almonte MD [address] [facility] [address] [place] [address] Hospitalist Endocrinology, Diabetes, and Metabolism 05/30/21 Griffin Joshi MD [address] [place] [address] Cardiovascular Disease 07/25/21 Rina Magallon, RN Lead Senior Care Manager 07/29/21 07/11/22 Griffin Joshi MD [address] [place] [address] Assigned Heart and Vascular Provider 08/06/21 10/07/21 Roopa Almonte MD [address] 200 [place] [address] Assigned Endocrinology Provider 09/10/21 [place] [address] [facility] [address] Assigned Musculoskeletal Provider 09/17/21 10/14/21 Lydia Bernstein PA-C [address] [place] [address] Assigned PCP 10/01/21 10/21/21 Rosa Maria Love Cristina Community Health Worker 10/06/21 [place] [address] [facility] [address] [place] [address] Assigned Musculoskeletal Provider 10/15/21 04/26/23 Paula Reza MD [address] [facility] [address] [place] [address] Assigned PCP 10/22/21 12/23/21 Keerthi Miner APRN MD OPHTHALMOLOGIST [address] [place] [address] Assigned Heart and Vascular Provider 10/08/21 02/10/22 Shahida Sutton APRN MD OPHTHALMOLOGIST Assigned PCP 12/24/21 03/24/22 Porsha Michaels APRN MD OPHTHALMOLOGIST [address] [place] [address] Assigned Heart and Vascular Provider 02/11/22 05/12/22 Paula Reza MD [address] [place] [address] Assigned PCP 03/25/22 04/07/22 Shahida Sutton APRN MD OPHTHALMOLOGIST [address] [place] [address] Assigned PCP 04/08/22 06/30/22 Daylin Ludwig, EP [facility] [address] [place] [address] Cardiac Rehabilitation Therapist 05/16/23 Laurel Velasquez MD [address] [place] [address] Assigned Heart and Vascular Provider 05/13/22 06/30/22 Daylin Ludwig, [facility] [address] [place] [address] Cardiac Rehabilitation Therapist 06/08/22 06/09/23 Paula Reza MD [address] [place] [address] Assigned PCP 07/01/22 07/07/22 Porsha Michaels APRN MD OPHTHALMOLOGIST [address] [place] [address] Assigned Heart and Vascular Provider 07/01/22 07/07/22 Laurel Velasquez MD [address] [place], [place] [address] Assigned Heart and Vascular Provider 07/08/22 08/04/22 Shahida Sutton, RAILROAD CAR CHECKER MD OPHTHALMOLOGIST Assigned PCP 07/08/22 09/08/22 Marilin Montaño, MD OPHTHALMOLOGIST [address] [place] [address] Assigned Heart and Vascular Provider 08/05/22 Esha Dewitt MD [address] [address] Gastroenterology 09/06/22 Heather Mosquera MD [address] [place] [address] Internal Medicine 09/06/22 Paula Reza MD [address] [facility] [address] [place] [address] Assigned PCP 09/09/22 01/05/23 Esha Dewitt MD [address] [address] Assigned Gastroenterology Provider 09/23/22 Valdo Escamilla PA-C [address] [place] [address] Assigned Neuroscience Provider 09/30/22 Nohelia Abarca PA-C [address] [place] [address] Physician Gas Fitter Apprentice Gastroenterology 10/03/22 Heather Mosquera MD [address] [address] Assigned PCP 01/06/23 Fawad York MD [address] [place], [place] [address] Assigned Musculoskeletal Provider 04/27/23 06/25/23 documented as of this encounter
--- OUTSIDE RECORDS SUMMARY | 2023-12-25 08:22 | XMS_ITS | Encounter Summary ---
Author Organization [facility] Address [address] [place] [address] Care Team Providers Care Puff Iron Operator Name Role Phone Dixon Carson MD Primary Care Provider Mingo Aldana MD Primary Car e Provider Shahida Sutton RESTAURANT FLOOR MANAGER CHIEF CONTROLLER TOWER Primary Care Provi ford Unavailable Herman, Shahida Cummings APRN CHIEF CONTROLLER TOWER Unavailable Un available Herman, Shahida Cummings APRN CHIEF CONTROLLER TOWER Unavailable Un available Carolynn Ramon RN Unavailable [phone] Augustine Callaway MD Unavailable Brady Lion MD Unavailable Un available Nima FranceC Unavailable [phone] Camille Chandler PA-C Unavailable [phone] Anabela Barakat APRN CHIEF CONTROLLER TOWER Unavailable Nima FranceC Unavailable [phone] Basilio Morillo DO Unavailable [phone] Fawad York MD Unavailable [phone] Roopa Almonte MD Unavailable [phone] Augustine Callaway MD Unavailable Maryse Burton [...] Reza MD Unavailable Keerthi Miner APRN CHIEF CONTROLLER TOWER Unavailable Herman, Shahida Cummings APRN CHIEF CONTROLLER TOWER Unavailable Un available Porsha Michaels APRN CHIEF CONTROLLER TOWER Unavailable [phone] Paula Reza MD Unavailable Herman, Shahida Cummings APRN CHIEF CONTROLLER TOWER Unavailable Un available Daylin Ludwig Unavailable [phone] Laurel Velasquez MD Unavailable Daylin Ludwig Unavailable [phone] Paula Reza MD Unavailable Porsha Michaels APRN CHIEF CONTROLLER TOWER Unavailable [phone] Laurel Velasquez MD Unavailable Herman, Shahida Cummings APRN CHIEF CONTROLLER TOWER Unavailable Un available Marilin Montaño CHIEF CONTROLLER TOWER Unavailable Esha Dewitt MD Unavailable [phone] Heather Mosquera MD Unavailable [phone] Paula Reza MD Unavailable Esha Dewitt MD Unavailable [phone] Ayserick Valdo Desouza PA-C Unavailable [phone] Nohelia Abarca PA-C Unavailable [phone] Heather Mosquera MD Unavailable [phone] Fawad York MD Unavailable [phone] Reason for Visit * Reason Onset Date Comments MyChart Communication 08/22/2006 nexium Encounter Details Date Type Department Care Team (Late st Contact Info) Description 08/22/2006 [employer] [address] [address] Dixon Carson MD [address] [address] MyChart Communication (nexium) Social History Tobacco Use [...] Cordero - 08/22/2006 1:12 PM CDTMessage from [employer]: Original authorizing provider: Olivier Terrell would like a refill of the following medications: NEXIUM 40 MG OR CPDR [Olivier Frances MD] Preferred pharmacy: [facility] Comment: Thank you for your efforts on [...] Out COVID-19 02/15/2020 02/15/2020 02/16/2020 2:32 PM ACCREDITED LEGAL SECRETARY Rule Out COVID-19 01/05/2021 01/05/2021 01/06/2021 12:57 PM CDT ESBL 01/05/2021 01/05/2021 Rule Out COVID-19 06/30/2021 06/30/2021 07/01/2021 9:34 AM CDT Rule Out COVID-19 07/25/2021 07/25/2021 07/25/2021 8:02 PM CDT documented as of this encounter Care Teams Puff Iron Operator Relationship Specialty Start Date End Date Dixon Carson MD PCP - General 08/10/03 07/21/09 Mingo Aldana MD PCP - General Family Practice 07/22/09 07/12/14 Shahida Sutton APRN CHIEF CONTROLLER TOWER PCP - General Nurse Practitioner 08/17/14 08/04/21 Shahida Sutton APRN CHIEF CONTROLLER TOWER PCP - Assigned PCP 07/12/14 05/07/18 Paula Reza MD [address] [address] PCP - General Internal Medicine 08/05/21 Shahida Sutton APRN CHIEF CONTROLLER TOWER Assigned PCP 07/12/14 09/30/21 Carolynn Ramon RN Personal Advocate & Liaison (PAL) 12/17/18 08/07/21 [place] [address] [place] [address] Assigned Musculoskeletal Provider 12/26/19 08/21/20 Brady Lion MD Assigned Heart and Vascular Provider 12/26/19 08/14/20 Nima France PA-C [address] [facility] [address] [address] [place] [address] Assigned Surgical Provider 05/19/20 08/21/20 Camille Chandler PA-C [address] [facility] [address] [place] [address] Assigned Neuroscience Provider 05/19/20 09/14/20 Anabela Barakat APRN CHIEF CONTROLLER TOWER [address] [place] [address] Assigned Heart and Vascular Provider 08/15/20 08/05/21 Nima France PA-C [address] [address] [place] [address] Assigned Musculoskeletal Provider 08/22/20 11/13/20 [place] [address] [facility] [place] [id number] Assigned Musculoskeletal Provider 11/14/20 12/04/20 Fawad York MD [address] [place] [address] Assigned Musculoskeletal Provider 12/05/20 02/05/21 Roopa Almonte MD [address] [facility] 200 [place] [address] Endocrinology, Diabetes, and Metabolism 01/19/21 [place] [address] [facility] 300 [place] [address] Assigned Musculoskeletal Provider 02/06/21 09/16/21 Maryse Burotn PA-C [address] [place] [address] Physician Central Scheduler Dermatology 04/14/21 Marquita Starkey MD [address] [facility] 200 [place] [address] Internal Medicine 05/06/21 05/06/21 Roopa Almonte MD [address] [facility] [address] [place] [address] Hospitalist Endocrinology, Diabetes, and Metabolism 05/30/21 Griffin Joshi MD [address] [facility] [address] [place] [address] Cardiovascular Disease 07/25/21 Rina Magallon, RN Lead Molding Sander 07/29/21 07/11/22 Griffin Johsi MD [address] [facility] [address] [place] [address] Assigned Heart and Vascular Provider 08/06/21 10/07/21 Roopa Almonte MD [address] [place] [address] 200 [place] [address] Assigned Endocrinology Provider 09/10/21 [place] [address] [facility] [place] [address] Assigned Musculoskeletal Provider 09/17/21 10/14/21 Lydia Bernstein, HUYC [address] [place] [address] Assigned PCP 10/01/21 10/21/21 Rosa Maria Love CHW Community Health Worker 10/06/21 [place] [address] [facility] 300 [place] [address] Assigned Musculoskeletal Provider 10/15/21 04/26/23 Paula Reza MD [address] [facility] 200 [place] [address] Assigned PCP 10/22/21 12/23/21 Keerthi Miner APRN CHIEF CONTROLLER TOWER [address] [place] [address] Assigned Heart and Vascular Provider 10/08/21 02/10/22 Shahida Sutton APRN CHIEF CONTROLLER TOWER Assigned PCP 12/24/21 03/24/22 Porsha Michaels APRN CHIEF CONTROLLER TOWER [address] [place] [address] Assigned Heart and Vascular Provider 02/11/22 05/12/22 Paula Reza MD [address] [place] [address] Assigned PCP 03/25/22 04/07/22 Shahida Sutton APRN CHIEF CONTROLLER TOWER [address] [place] [address] Assigned PCP 04/08/22 06/30/22 Daylin Ludwig, EP [facility] [address] [place] [address] Cardiac Rehabilitation Therapist 05/16/23 Laurel Velasquez MD [address] [place] [address] Assigned Heart and Vascular Provider 05/13/22 06/30/22 Daylin Ludwig, MIKI [facility] [address] [place] [address] Cardiac Rehabilitation Therapist 06/08/22 06/09/23 Paula Reza MD [address] [place] [address] Assigned PCP 07/01/22 07/07/22 Porsha Michaels APRN CHIEF CONTROLLER TOWER [address] [place] [address] Assigned Heart and Vascular Provider 07/01/22 07/07/22 Laurel Velasquez MD [address] [place] [address] Assigned Heart and Vascular Provider 07/08/22 08/04/22 Shahida Sutton APRN CHIEF CONTROLLER TOWER Assigned PCP 07/08/22 09/08/22 Marilin Montaño, CHIEF CONTROLLER TOWER [address] [facility] [place] [address] Assigned Heart and Vascular Provider 08/05/22 Esha Dewitt MD [address] [facility] 36 [place] [address] MD Gastroenterology 09/06/22 Heather Mosquera MD [address] [place] [address] Internal Medicine 09/06/22 Paula Reza MD [address] [facility] [address] [place], [place] [address] Assigned PCP 09/09/22 01/05/23 Esha Dewitt MD [address] [facility] 36 [place] [address] Assigned Gastroenterology Provider 09/23/22 Valdo Escamilla PA-C [address] [place] [address] Assigned Neuroscience Provider 09/30/22 Nohelia Abarca PA-C [address] [place] [address] Physician Central Scheduler Gastroenterology 10/03/22 Heather Mosquera MD [address] [place] [address] Assigned PCP 01/06/23 Fawad York MD [address] [place] [address] Assigned Musculoskeletal Provider 04/27/23 06/25/23 documented as of this encounter
--- OUTSIDE RECORDS SUMMARY | 2023-12-25 08:22 | XMS_ITS | Clinical Summary ---
Author Organization [employer] [facility] Address [address], [place] [address] Care Team Providers Care Guest Services Lead Name Role Phone Ezra Roper MD Primary Care Provider [phone] Source Comments You are receiving this document as you are listed as the primary care provider,follow-up provider, or the patient has been referred to you for consultation.This is in compliance with the Medicare andRegional Medical Centercaid EHR Incentive Program,which states Providers who transition their patient to another setting of careor provider of care or refers their patient to another provider of care shouldprovide summary care record for each transition of care or referral. Bee There Allergies Active Allergy Reactions Criticality Noted Date [...] Comments Blood Pressure 170/82 04/17/2019 3:06 PM JOB COUNSELOR Pulse 84 04/17/2019 3:06 PM JOB COUNSELOR Temperature 36.9 ??C (98.5 ??F) 04/17/2019 12:[address] Respiratory Rate 18 04/17/2019 3:06 PM JOB COUNSELOR Oxygen Saturation 96% 04/17/2019 3:06 PM JOB COUNSELOR Inhaled Oxygen Concentration - - Weight - - Height - - Body Mass Index - - Plan of Treatment Health Maintenance Due Date Last Done Comments Colon Cancer Screening Plan Due 1960 Hep C Screening (Preventive Services) 1960 PSA Screening Discussion 1960 HIV Screening (Preventive Services) 1976 Adult Preventive Visit 1978 Cholesterol 12/07/1995 Zoster/Shingles (1 of 2) 2010 COVID-19 Vaccine (2023- season) 2023 Influenza (#1) 2023 12/10/2018, 11/03, 11/30/2014, Additional history exists DTaP/Tdap/Td (3 - Tdap) 05/25/2026 05/25/2016, 02/15 RSV (1 - 1-dose 75+ series) 12/07/2035 Pneumococcal Aged Out 09/01/2014 No longer eligi [...] on patient's age to complete this topic Infant RSV Aged Out No longer eligi ble based on patient's age to complete this topic MCV4 Aged Out No longer eligi ble based on patient's age to complete this topic Care Teams Guest Services Lead Relationship Specialty [place] [address] [facility] Ben [address] [place] [address] [id number] PCP - General 06/04/10
--- OUTSIDE RECORDS SUMMARY | 2023-12-25 08:23 | XMS_ITS | Continuity of Care Document ---
Author Organization [facility] Address [address] [facility] [place] [address] Phone Care Team Providers Care Harbor Engineer Name Role Phone Will Mauro JANSEN Unavailable [...] Diagnoses Date Provider Providers Copied on Encounter [facility], [address] [place] [address], [id number] , [place] tel:[phone] [facility] No Information 2 Waqar Wade. [address] [place], [place], [id number], [place]. tel:[phone] OFFICE/OUTPA TIENT VISIT, EST [facility], [address] [place] [address], [id number] , [place] tel:[phone] [facility] right shoulder pain (chief complaint) CervicalgiaPain in right shoulderLow back painLong term (current) use of opiate analgesic b 9 Gretta Burnett. [address] [place] [address] [address], [place], [place], [id number], [place]. tel:[phone] Referring Provider: Mauro Coleman [address] [place] [address] [place], [address] . tel:[phone] OFFICE/OUTPA TIENT VISIT, [facility], [address] [place] [address], [id number] , [place] [phone] [facility] right shoulder pain (chief complaint) CervicalgiaPain in right shoulderLong term (current) use of opiate analgesicLow back painEncounter for therapeutic drug level monitoring 9 Gretta Burnett. [address] [facility] [address], [place], [place], [id number], [place]. tel:[phone] Referring Provider: Mauro Coleman, [address] [place] [address] [place], [address] . tel:[phone] [facility], [address] [place] [address], [id number] , [place] [phone] [facility] Myalgia, other site 9 Glynnvren Burnett. [facility] [address], [place], [place], [id number], [place]. tel:[phone] Referring Provider: Mauro Coleman, [address] [place] [address] [place], [address] . tel:[phone] OFFICE/OUTPA TIENT VISIT, [facility], [address] [place] [address], [id number] , [place] tel:[phone] [facility] right shoulder pain (chief complaint) CervicalgiaPain in right shoulderLong term (current) use of opiate analgesicLow back pain 9 Gretta Burnett. [address] [facility] [address], [place], [place], [id number], [place]. tel:[phone] Referring Provider: Mauro Coleman, [address] [place] [address] [place], [address] . tel:[phone] OFFICE/OUTPA TIENT VISIT, [facility], [address] [place] [address], [id number] , [place] tel:[phone] [facility] [place] right shoulder pain (chief complaint) CervicalgiaPain in right shoulderLong term (current) use of opiate analgesic 9 Glynnvern Burnett. [address], [id number], [place]. [phone] Referring Provider: Mauro Coleman, [address] [place], [place] [address], [address] . tel:[phone] [facility], [address] [place] [address], [id number] , [place] tel:[phone] [facility] No Information 8 Glynn Lex. [address] [place] [address], [id number], [place]. [phone] OFFICE/OUTPA TIENT VISIT, [facility], [address] [place] [address], [id number] , [place] tel: [phone] [facility] right shoulder pain (chief complaint) CervicalgiaPain in right shoulderLong term (current) use of opiate analgesic 8 Glynn Lex. [address] [place] [address] [address] [facility] [address], [place], [id number], [place]. [phone] [facility], [address] [place] [address], [id number] , [place] tel:[phone] [facility] right shoulder pain (chief complaint) No Information 8 Glynn Lex. [address] [facility] [address], [place], [id number], [place]. [phone] OFFICE/OUTPA TIENT VISIT, EST [facility], [address] [place] [address], [id number] , [place] tel: [phone] [facility] neck pain (chief complaint) low back pain (chief complaint) CervicalgiaPain in joint involving shoulder region 4 Cruz Moreira. [address] [place] [address], [id number], . tel:[phone] Referring Provider: Mauro Coleman, [address] [place], [place] [address], [address] . tel:[phone] [facility], [address] [place] [address], [id number] , tel:[phone] [facility] neck pain (chief complaint) back pain (chief complaint) No Information No Information Referring Provider: Mauro Coleman, [address] [place], [place] [address], [address] . tel:[phone] OFFICE/OUTPA TIENT VISIT, [facility], [address] [place] [address], [id number] , tel:[phone] [facility] right neck pain (chief complaint) low back pain (chief complaint) CervicalgiaPain in joint involving shoulder regionLumbago Cruz Moreira. [address] [place] [address], [id number], [place]. tel:[phone] Referring Provider: Mauro Coleman, [address] [place], [place] [address], [address] . tel:[phone] Family History Family Member Type Diagnosis Age At Onset Father Problem (finding) chronic pain Mother Problem (finding) Back surgery Payers Payer name Insurance type Covered constitution party ID Luz decker(s) [facility] [id number] Social History Type Description Quantity Date Captured Comments Sex Male Smoking Status No Information Chief Complaint And Reason For Visit No Information Reason For Referral Reason For Referral No Information Plan Of Treatment Date Type Action Status Future Order: Lab Order COMPLIAN CE DRUG ANALYSIS, URINE, WITH MED REPORT ([id number]), Ordered on: Ordered Future Order: Lab Order COMPLIAN CE DRUG ANALYSIS, URINE, WITH MED REPORT ([id number]), Ordered on: Ordered History Of Present Illness Encounter Date Complaint History Of Prese nt Illness right shoulder pain (comments) A ndrew is here today for a followup and medication refill. He presents without medications today. Reports his pain has worsened since his last OV, noting he recently went to the ER for exacerbated acute back pain. Reports ER physcian advised his [place] Rx is no longer effective d/t penitentiary use. Expresses frustration regarding his worsening pain [...] and medication refills. Patient presents without 10/325mg [place] - due out today. Reports at least [...] positions and lying down. right shoulder pain Duration: ch ronic. It occurs constantly and is worsening. Location: right shoulder. The pain is aching, burning, sharp and tingling. There are no aggravating factors. There are no relieving factors. right shoulder pain (comments) A ndrpavan is here for follow-up and medication refills. Patient has 10/325mg [place]wood #0 remaining today - due out today. [...] he admits to self escalation of his Norwood and took his last dose last night. Mauro is not accompanied by anyone today and has no further questions or concerns. right shoulder pain Duration: ch ronic. Severity [...] right shoulder pain.Initial right shoulder injections with [place] offered significant relief with improvement of ROM. [...] shoulder pain, referred by Dr. 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 His shoulder pain began decades ago and has gradually gotten worse with extensive computer use. He also reports R upper back and neck pain. States his pain has significantly reduced his quality of life. Underwent PT [facility] in 2017-- not helpful. States he believes PT may have aggravated his pain. Tried right shoulder joint injection. Reports several ESIs--somewhat helpful. Reports most recent REBECCA was done a few months ago, however states he has Diabetes so he needs to be careful with steroid injections. Reports previous MRI at [facility]. Currently managed on hydrocodone 5-325mg [...] Location: right shoulder. right shoulder pain (comments) A ndrew is here for initial consult for right shoulder pain, referred by . His shoulder pain began decades ago and has gradually gotten worse with extensive computer use. He also reports R upper back and neck painUnderwent PT at [facility] in 2017-- not helpful. Tried right shoulder joint injection. Reports previous MRI at [facility]. Has taken gabapentin, lyrica, Topamax, [...]
--- OUTSIDE RECORDS SUMMARY | 2023-12-25 08:23 | XMS_ITS | Continuity of Care Document ---
Author Organization [facility] Address [address] [place] [address] Phone Care Team Providers Care Party Chief Name Role Phone RN, RN Unavailable Unavailable Allergies, Adverse Reactions, Alerts Substance Reaction Status Criticality metoclopramide Active No Informatio n lamotrigine Active No Information lisinopril Active No Information Medications Medication Instructions Dosage Effective Dates (start - stop) Status Comments oxycodone-acetam inophen 5 mg-325 mg tablet take 1 tablet by oral route up to 4 times a day as needed - Active chronic pain tizanidine 4 mg tablet TAKE 1 TO 2 TABLETS BY MOUTH EVERY 8 HOURS NEEDED FOR MUSCLE SPASM - Active torsemide 20 mg tablet take 2 tablet by oral route 2 times every day 40 MG - Active Jardiance 10 mg tablet take [...] hydroxyzine HCl 10 mg tablet - Active hydrocodone 5 mg-acetaminophen 325 mg tablet take 1 tablet by oral route 4 times every day as needed for pain - No Longer Active For chronic pain, hydrocodone 5 mg-acetaminophen 325 mg tablet take 1 tablet by oral route 4 times every day as needed for pain - On Hold chronic pain, Procedures Procedure Date Est Pt Eval Telehealth Est Pt Eval Moderate Toxicology Test Group B Est Pt Eval Telehealth Inject, Spine, Lumb/sacr, Epi/subarc w/ img Guid Inject, Spine, Lumb/sacr, Epi/subarc w/ img Guid Verified No Separate Anesthesia Est Pt Eval Telehealth Destrct; Other Peripheral Nerv CC Control For Rem/Void Of Mutually Excl usive Proc Change Control for Diagnosis(s) Change Control for Modifier(s) Other Periph Verified No Separate Anesthesia Est Pt Eval Moderate No Show Visit Fee Est Pt Eval Telehealth Toxicology Test Group B Inj Anes Epidur; Lumb/sac 1 Le Inj Anes Epidur; Lumb/sac-ea A Inj Anes Epidur; Lumb/sac 1 Le Trans Epid Lumbosac each addl 4 Verified No Separate Anesthesia Inj Anes Agent; Suprascapular Ultrason Guidan Needle Bx-rad 4 Suprascapular Block Ultrason Guidan Needle Bx-rad 4 Verified No Separate Anesthesia Est Pt Eval Telehealth No Show Visit [...] Fluoro Needle NonSpine Verified No Separate Anesthesia Est Pt Eval Telehealth Inj Anes Facet Jt; Lumb/sac-1st Level Se p Inj Anes Facet Jt; Lumb/sac-2nd Level Se p Inj Anes Facet Jt; Lumb/sac-2nd Level Se p Inj Anes Facet Jt; Lumb/sac-3rd Level Se Inj Anes Facet Jt; Lumb/sac-3rd Level Se p Inj Anes Facet Jt; Lumb/sac-2nd Level Se p Inj Anes Facet Jt; Lumb/sac-1st Level Se p Inj Anes Facet Jt; Lumb/sac-3rd Level Se p Inj Anes Facet Jt; Lumb/sac-2nd Level Se p Inj Anes Facet Jt; Lumb/sac-3rd Level Se p Change Control for Modifier(s) Change Control for Procedure(s): 2022 No anesthesia report available in EHR. S Est Pt Eval Telehealth Psychiatric Diagnostic Evaluation Teleph one Only Est Pt Eval Telehealth Est Pt Eval Moderate Toxicology Test Group B Inject Joint Large Fluoro Needle NonSpine Arthrocentesis/aspir/inj; Lakisha Fluoro Guidance - NonSpine Change Control for Diagnosis(s) Change Control for Modifier(s) Verified No Separate Anesthesia Est Pt Eval 25 Min Telehealth Inj Anes Agent Other Peripher 3 Fluoro Guidance - NonSpine Change Control for Diagnosis(s) 023 Other Periph Nerve Block Fluoro Needle NonSpine Verified No Separate Anesthesia 023 Est Pt Eval 25 Min Telehealth 3 Inj Anes Epidur; Lumb/sac-ea A Inj Anes Epidur; Lumb/sac 1 Le Inj Anes Epidur; Lumb/sac 1 Le Trans Epid Lumbosac each addl 3 Verified No Separate Anesthesia Inject SI Joint Arthrography Sacroiliac Joint Injection [...] Verified No Separate Anesthesia 023 Arthrocentesis/aspir/inj; Lakisha Fluoro Guidance - NonSpine Change Control for Modifier(s) Inject Joint Large Fluoro Needle NonSpine Verified [...] C Est Pt Eval 25 Min Telehealth Camilo-27-202 1 Inject SI Joint Arthrography Sacroiliac Joint Injection Methylprednisolone Acetate-40 Change Control for Pharmaceuticals Change Control for other claim elements No Show Visit Fee No Show Visit Fee Est Pt Eval 25 Min Telehealth Sacroiliac Joint Injection Methylprednisolone Acetate-40 Change Control for Procedure(s): 2020 Change Control for Pharmaceuticals Inject SI Joint Arthrography Est Pt Eval 25 Min No Show Visit Fee Est Pt Eval 25 Min Telehealth Est Pt Eval 25 Min Toxicology Test Group C No Show Visit Fee No Show Visit Fee Est Pt Eval 25 Min Telehealth Inj Anes Facet Jt; Lumb/sac-3rd Level Ne Inj Anes Facet Jt; Lumb/sac-1st Level Ne Inj Anes Facet Jt; Lumb/sac-2nd Level Ne Bupivicaine 30ml Change Control for Pharmaceuticals Inj Anes Facet Jt; Lumb/sac-1st Level Ne Inj Anes Facet Jt; Lumb/sac-2nd Level Ne Inj Anes Facet Jt; Lumb/sac-3rd Level Ne Psychotherapy, 30 minutes with patient M Psychotherapy, [...] Control for Pharmaceuticals Change Control for Diagnosis(s) Est Pt Eval 25 Min Telehealth 0 PT Eval - Moderate Complexity 0 Therapeutic Exercise Est Pt Eval 15 Min Telehealth 0 Inject, Spine, Lumb/sacr, Epi/subarc w/ img Guid Methylprednisolone Acetate-40 0 Change Control for Diagnosis(s) Change Control for Pharmaceuticals Inject, Spine, Lumb/sacr, Epi/subarc w/ img Guid Est Pt Eval 15 Min Telehealth 0 Est Pt Eval 15 Min Telehealth 0 New Pt Eval 45 Min Telehealth 0 Advance Directives Directive Yes / No Effective Date File Name No Information Encounters Encounter Description Practice Location Reason(s) For Visit Diagnoses Date Provider Providers Copied on Encounter [facility], [address] [facility] [address], [place], [id number], [place] tel:[phone] [facility] No Information Dec- 4 RN RN. [address] , [address], [place], [address], [place]. tel:[phone] Est Pt Eval Telehealth [facility], [facility], [address], [place], [place], [address], [place] tel:[phone] [facility] lower back pain (chief complaint) Intervertebral disc disorders w radiculopathy, lumbar regionPain in left hipBody mass index (BMI) 31.0-31.9, adult Dec- 4 Person Francisco Javier. [address] , [address], [place], [address], [place]. tel:[phone] Jasen Drevlow DO.Referri ng Provider: Shahida Sutton CNP, [address] [place], [address]. tel:[phone] Est Pt Eval Moderate [facility], [facility], [address] [facility] [address], [place], [address], [place] tel:[phone] [facility] lower back pain (chief complaint) hip pain (chief complaint) Body mass index (BMI) 31.0-31.9, adultPain in left hipIntervertebral disc disorders w radiculopathy, lumbar regionPrimary osteoarthritis of right shoulder Sep-2 4 Person Francisco Javier. [address] , [address] [place] [address], [id number], [place]. tel:[phone] Jasen Drevlow DO.Referri ng Provider: Shahida Sutton CNP, [address] [place], [address]. tel:[phone] [facility], [facility], [address], [place], [place], [address], [place] tel:[phone] [facility] No Information 4 Person Francisco Javier. [address], [address], [place], [address], [place]. tel:[phone] Referring Provider: Shahida Sutton CNP, [address] [place], [address]. tel:[phone] Est Pt Eval Telehealth [facility], [address], [place], [address], [place] tel:[phone] [facility] lower back pain (chief complaint) Body mass index (BMI) 32.0-32.9, adultIntervertebra l disc disorders w radiculopathy, lumbar regionPain in left hipPrimary osteoarthritis of right shoulder Sep- 4 Person Francisco Javier. [address], [facility] [address], [place], [address], [place]. tel:[phone] Jasen Witt DO.Referri ng Provider: Shahida Sutton CNP, [address] [place], [address]. tel:[phone] [facility], [facility], [address], [place], [address], [place] tel:[phone] [facility] Surgical [facility] No Information 4 Xin Quinones. [address] [facility] [place] [address], [place], [address], [place]. tel:[phone] Referring Provider: Joni Calderon, [address], [place], [address]. tel:[phone] [facility] [place], [address], [address], [address], [place] tel:[phone] [facility] lower back pain (chief complaint) Radiculopathy, lumbar region 4 [facility]. [address], [place], [place], [address], [place]. tel:[phone] Jasen Drevlow DO.Referri ng Provider: Joni Calderon, [address], [place], [address]. tel:[phone] [facility], [facility], [address], [place], [place], [address], [place] tel:[phone] [facility] No Information 4 Xin Quinones. [address], [place], [address], [place]. tel:[phone] Referring Provider: Joni Calderon, [address], [place], [address]. tel:[phone] Est Pt Eval Telehealth [facility], [address], [place], [place], [address], [place] tel:[phone] [facility] lower back pain (chief complaint) Primary osteoarthritis of right shoulderPain in left hipIntervertebral disc disorders w radiculopathy, lumbar regionBody mass index (BMI) 32.0-32.9, adult 4 Nilay Johnson. [address], [place], [place], [address], [place]. tel:[phone] Jasen Drevlow DO.Referri ng Provider: Shahida Sutton [employer], [address] Formerly [facility], [place], [address]. tel:[phone] [facility], [address], [address], [place], [address], [place] tel:[phone] [facility] shoulder pain (chief complaint) Pain in right shoulderNeuralgia and neuritis, unspecified 4 [facility] Surgical [facility]. [address], [place], [place], [address], [place]. tel:[phone] Jasen Witt DO.Referri ng Provider: Joni Calderon, [address], [place], [address]. tel:[phone] [facility], [address], [place], [place], [address], [place] tel:[phone] [facility] No Information 4 Xin Quinones. [address], [place], [address], [place]. tel:[phone] Referring Provider: Joni Calderon, [address], [place], [address]. tel:[phone] [facility], [facility], [address], [place], [place], [address], [place] tel:[phone] [facility] No Information 4 Xin Quinones. [address], [place], [address], [place]. tel:[phone] Referring Provider: Joni Calderon, [address], [place], [address]. tel:[phone] Est Pt Eval Moderate [facility], [facility], [address], [place], [place], [address], [place] tel:[phone] [facility] lower back pain (chief complaint) Intervertebral disc disorders w radiculopathy, lumbar regionPain in left hipPrimary osteoarthritis of right shoulderBody mass index (BMI) 32.0-32.9, adult 4 Nilay Johnson. [address], [place], [place], [address], [place]. tel:[phone] Jasen Matosvdaniel DO.Referri ng Provider: Shahida Sutton CNP, [address] [place], [address]. tel:[phone] [facility], [address], [place], [place], [address], [place] tel:[phone] [facility] No Information 4 Person Francisco Javier. [address], [address], [address], [place]. tel:[phone] Referring Provider: Shahida Sutton CNP, [address] [place], [address]. tel:[phone] Est Pt Eval Telehealth [facility], [address], [place], [place], [address], [place] tel:[phone] [facility] lower back pain (chief complaint) Intervertebral disc disorders w radiculopathy, lumbar regionPrimary osteoarthritis of right shoulderPain in left hipBody mass index (BMI) 34.0-34.9, adult 4 Person Francisco Javier. [address] , [facility] [place] [address], [place], [place], [address], [place]. tel:[phone] Jasen Witt DO.Referri ng Provider: Shahida Sutton CNP, [address] [place], [address]. tel:[phone] [facility], [address], [place], [place], [address], [place] tel:[phone] [facility] No Information 4 Person Francisco Javier. [address], [place], [place], [address], [place]. tel:[phone] Referring Provider: Shahida Sutton CNP, [address] Former[facility], [place], [address]. tel:[phone] [facility], [address], [place], [address], [place] tel:[phone] [facility] lower back pain (chief complaint) hip pain (chief complaint) leg pain (chief complaint) Radiculopathy, lumbar regionElevated blood-pressure reading without diagnosis of hypertension 4 [facility]. [address], [place], [place], [address], [place]. tel:[phone] Jasen Witt DO.Referri ng Provider: Dominik Mays, [address], [place], [address]. tel:[phone] MITZY Valentin, [address], [place], [place], [address], [place] tel:[phone] [facility] No Information 4 Davon Lehman. [address], [place], [address], [place]. tel:[phone] Referring Provider: Dominik Mays, [address], [place], [address]. tel:[phone] REINIER Valentin, [address], [place], [place], [address], [place] tel:[phone] [facility] No Information 4 Davon Lehman. [address], [place], [address], [place]. tel:[phone] Referring Provider: Dominik Mays, [address], [place], [address]. tel:[phone] [facility], [address], [place], [place], [address], [place] tel:[phone] [facility] No Information 4 Xin Quinones. [address], [place], [address], [place]. tel:[phone] Referring Provider: Joni Calderon, [address], [place], [address]. tel:[phone] [facility], [address], [address], [place], [address], [place] tel:[phone] [facility] shoulder pain (chief complaint) Pain in right shoulderNeuralgia and neuritis, unspecifiedPain in right shoulderNeuralgia and neuritis, unspecified 4 Xin Quinones. [address], [place], [address], [place]. tel:[phone] Jasen Witt DO.Referri ng Provider: Shahida Sutton [employer], [address] Former[facility] Named [facility], [place], [address]. tel:[phone] [facility], [address], [place], [place], [address], [place] tel:[phone] [facility] No Information 4 Xin Quinones. [address] [facility] [place] [address], [place], [address], [place]. tel:[phone] Referring Provider: Jnoi Calderon, [address], [place], [address]. tel:[phone] Est Pt Eval Telehealth [facility], [facility], [address], [place], [place], [address], [place] tel:[phone] [facility] lower back pain (chief complaint) Primary osteoarthritis of right shoulderInterverte bral disc disorders w radiculopathy, lumbar regionPain in left hip 4 Orestes Poolg. [address], [place], [place], [address], [place]. tel:[phone] Jasen Drevlow DO.Referri ng Provider: Shahida Sutton CNP, [address] [place], [address]. tel:[phone] [facility], [address], [place], [place], [address], [place] tel:[phone] [facility] No Information 4 Roly Velazquez. [address], [place], [address], [place]. tel:[phone] Referring Provider: Shahida Sutton CNP, [address] [place], [address]. tel:[phone] Est Pt Eval Telehealth [facility], [facility], [address], [place], [place], [address], [place] tel:[phone] [facility] left hip pain (chief complaint) back pain (chief complaint) Primary osteoarthritis of right shoulderPain in left hipIntervertebral disc disorders w radiculopathy, lumbar regionBody mass index (BMI) 34.0-34.9, adult 4 Stacie Vaughn. [address], [place], [address], [place]. tel:[phone] Jasen Drevlow DO.Referri ng Provider: Shahida Sutton CNP, [address] [place], [address]. tel:[phone] Est Pt Eval Moderate [facility], [facility], [address], [place], [place], [address], [place] tel:[phone] [facility] back pain (chief complaint) bilateral shoulder pain (chief complaint) Pain in left hipIntervertebral disc disorders w radiculopathy, lumbar regionPrimary osteoarthritis of right shoulderBody mass index (BMI) 33.0-33.9, adult 4 Gaston Alice. [address] [place], [address], [place]. tel:[phone] Jasen Drevlow DO.Referri ng Provider: Shahida Sutton CNP, [address] [place], [address]. tel:[phone] [facility], [address], [place], [place], [address], [place] tel:[phone] [facility] No Information 4 Gaston Alice. [address] [place], [address], [place]. tel:[phone] Referring Provider: Shahida Sutton CNP, [address] [place], [address]. tel:[phone] Est Pt Eval Telehealth [facility], [facility], [address], [place], [place], [address], [place] tel:[phone] [facility] left hip pain (chief complaint) Body mass index (BMI) 35.0-35.9, adultPain in left hipSacroiliitisInt ervertebral disc disorders w radiculopathy, lumbar region 4 She Qiying. [address], [place], [address], [place]. tel:[phone] Jasen Drevlow DO.Referri ng Provider: Shahida Sutton CNP, [address] [place], [address]. tel:[phone] [facility], [address], [place], [place], [address], [place] tel:[phone] [facility] left hip pain (chief complaint) Pain in left hipOsteoarthritis of hip, unspecifiedPain in left hipOsteoarthritis of hip, unspecified Fe-0 4 Foster Dominik. [address], [place], [address], [place]. tel:[phone] Jasen Drevlow DO.Referri ng Provider: Shahida Sutton CNP, [address] [place], [address]. tel:[phone] Est Pt Eval Telehealth [facility], [facility], [address], [place], [place], [address], [place] tel:[phone] [facility] back pain (chief complaint) Neck Pain (chief complaint) Body mass index (BMI) 35.0-35.9, adultPain in left hipSacroiliitis 4 She Qijohnson. [address], [place], [address], [place]. tel:[phone] Jasen Drevlow DO.Referri ng Provider: Shahida Sutton CNP, [address] [place], [address]. tel:[phone] Est Pt Eval Moderate [facility], [facility], [address], [place], [place], [address], [place] tel:[phone] [facility] left hip pain (chief complaint) Pain in left hipSacroiliitisBod y mass index (BMI) 35.0-35.9, adult Nov-3 3 Gaston Alice. [address] [place], [address], [place]. tel:[phone] Jasen Drevlow DO.Referri ng Provider: Shahida Sutton CNP, [address] [place], [address]. tel:[phone] [facility], [address], [place], [place], [address], [place] tel:[phone] [facility] No Information 3 Gaston Alice. [address], [place], [address], [place]. tel:[phone] Referring Provider: Shahida Sutton [employer], [address] [address] [facility], [place], [address]. tel:[phone] [facility], [address], [address], [place], [address], [place] tel:[phone] [facility] left hip pain (chief complaint) Pain in left hipNeuralgia and neuritis, unspecified 3 [facility]. [address], [place], [place], [address], [place]. tel:[phone] Referring Provider: Joni Lauren S, [address], [place], [address]. tel:[phone] [facility], [address], [place], [place], [address], [place] tel:[phone] [facility] No Information 3 Michelle De Luna. [address], [place], [address], [place]. tel:[phone] Referring Provider: Annamarie Martinez , [address], [place], [address]. tel:[phone] [facility], [address], [place], [place], [address], [place] tel:[phone] [facility] No Information 3 Michelle De Luna. [address], [place], [address], [place]. tel:[phone] Referring Provider: Annamarie Martinez , [address], [place], [address]. tel:[phone] Est Pt Eval Telehealth [facility], [address], [place], [place], [address], [place] tel:[phone] [facility] left hip pain (chief complaint) Pain in left hipBody mass index (BMI) 35.0-35.9, adult 3 Gaston Alice. [address] [place], [address], [place]. tel:[phone] Referring Provider: Shahida Sutton [facility], [address] [place], [address]. tel:[phone] [facility], [address], [place], [place], [address], [place] tel:[phone] [facility] No Information Sep- 3 Xin Quinones. [address], [place], [address], [place]. tel:[phone] Referring Provider: Joni Calderon, [address], [place], [address]. tel:[phone] [facility], [address], [address], [place], [address], [place] tel:[phone] [facility] back pain (chief complaint) Spondylosis w/o myelopathy or radiculopathy, lumbar regionSacroiliitis Spondylosis w/o myelopathy or radiculopathy, lumbar region Sep-2 3 [facility]. [address], [place], [place], [address], [place]. tel:[phone] Referring Provider: Joni Calderon, [address], [place], [address]. tel:[phone] [facility], [address], [place], [place], [address], [place] tel:[phone] [facility] No Information Sep- 3 Xin Quinones. [address], [place], [address], [place]. tel:[phone] Referring Provider: Joni Lauren S, [address], [place], [address]. tel:[phone] Est Pt Eval Telehealth [facility], [address], [place], [place], [address], [place] tel:[phone] [facility] back pain (chief complaint) Radiculopathy, lumbar regionPain in left hipBody mass index (BMI) 36.0-36.9, adult Sep-2 3 Stacie Vaughn. [address], [place], [address], [place]. tel:[phone] Referring Provider: Shahida Sutton CNP, [address] [place], [address]. tel:[phone] Psychiatric Diagnostic Evaluation Telephone Only [facility], [address], [place], [place], [address], [place] tel:[phone] [facility] Pain disorder with related psychological factorsMajor depressive disorder, recurrent, mild Sep- 3 Lopez Moreira. [address], [place], [address], [place]. tel:[phone] Referring Provider: Shahida Sutton CNP, [address] [place], [address]. tel:[phone] Est Pt Eval Telehealth [facility], [address], [place], [place], [address], [place] tel:[phone] [facility] back pain (chief complaint) Body mass index (BMI) 36.0-36.9, adultRadiculopathy , lumbar regionPain in left hip Sep-0 3 Roly Espinosan. [address], [place], [address], [place]. tel:[phone] Referring Provider: Shahida Sutton CNP, [address] [place], [address]. tel:[phone] Est Pt Eval [facility], [address], [place], [place], [address], [place] tel:[phone] [facility] back pain (chief complaint) Radiculopathy, lumbar regionPain in left hipBody mass index (BMI) 36.0-36.9, adultEssential (primary) hypertensionLow back pain Oct-0 3 Ketola Aydee. [address], [place], [place], [address], [place]. tel:[phone] Referring Provider: Shahida Sutton CNP, [address] [place], [address]. tel:[phone] [facility], [address], [place], [place], [address], [place] tel:[phone] [facility] No Information 3 Ketola Aydee. [address], [place], [place], [address], [place]. tel:[phone] Referring Provider: Shahida Sutton CNP, [address] [place], [address]. tel:[phone] [facility], [address], [place], [place], [address], [place] tel:[phone] [facility] No Information Camilo-2 0-202 3 Davon Lehman. [address], [place], [address], [place]. tel:[phone] Referring Provider: Dominik Davon, [address], [place], [address]. tel:[phone] [facility], [address], [place], [address], [place] tel:[phone] [facility] left hip pain (chief complaint) Osteoarthritis of hip, unspecifiedPain in left hipOsteoarthritis of hip, unspecifiedPain in left hip 3 [facility]. [address], [place], [place], [address], [place]. tel:[phone] Referring Provider: Dominik Mays, [address], [place], [address]. tel:[phone] [facility], [address], [place], [place], [address], [place] tel:[phone] [facility] No Information 3 Davon Lehman. [address], [place], [address], [place]. tel:[phone] Referring Provider: Dominik Mays, [address], [place], [address]. tel:[phone] [facility], [address], [place], [address], [place] tel:[phone] [facility] Osteoarthritis of hip, unspecified 3 Maria Isabel Al. [address], [place], [place], [address], [place]. tel:[phone] Referring Provider: Shahida Sutton [employer], [address] [place], [address]. tel:[phone] Est Pt Eval 25 Min Telehealth [facility], [address], [place], [place], [address], [place] tel:[phone] [facility] back pain (chief complaint) Radiculopathy, lumbar regionPain in left hipSacroiliitisBod y mass index (BMI) 36.0-36.9, adult Sep- 3 Ketola Torrance. [address], [place], [place], [address], [place]. tel:[phone] Referring Provider: Shahida Sutton [employer], [address] [place], [address]. tel:[phone] [facility], [address], [place], [place], [address], [place] tel:[phone] [facility] No Information 3 Michelle De Luna. [address], [place], [address], [place]. tel:[phone] Referring Provider: Annamarie Martinez , [address], [place], [address]. tel:[phone] [facility], [address], [place], [address], [place] tel:[phone] [facility] left hip pain (chief complaint) Pain in left hipPain in left hipNeuralgia and neuritis, unspecified 3 [facility]. [address], [place], [place], [address], [place]. tel:[phone] Referring Provider: Annamarie Martinez , [address], [place], [address]. tel:[phone] [facility], [facility], [address], [place], [place], [address], [place] tel:[phone] [facility] No Information 3 Michelle De Luna. [address], [place], [address], [place]. tel:[phone] Referring Provider: Annamarie Martinez , [address], [place], [address]. tel:[phone] Est Pt Eval 25 Min Telehealth [facility], [facility], [address], [place], [place], [address], [place] tel:[phone] [facility] back pain (chief complaint) Pain in left hipRadiculopathy, lumbar regionSacroiliitis Body mass index (BMI) 36.0-36.9, adult 3 Ketola Torrance. [address], [place], [place], [address], [place]. tel:[phone] Referring Provider: Shahida Sutton [employer], [address] [facility], [place], [address]. tel:[phone] [facility], [address], [address], [place], [address], [place] tel:[phone] [facility] back pain (chief complaint) Radiculopathy, lumbar regionRadiculopath y, lumbar region 3 [facility]. [address], [place], [place], [address], [place]. tel:[phone] Referring Provider: Dominik Mays, [address], [place], [address]. tel:[phone] [facility], [address], [place], [place], [address], [place] tel:[phone] [facility] No Information 3 Davon Cartery. [address], [place], [address], [place]. tel:[phone] Referring Provider: Dominik Davon, [address], [place], [address]. tel:[phone] [facility], [address], [place], [place], [address], [place] tel:[phone] [facility] No Information 3 Davon Lehman. [address], [place], [address], [place]. tel:[phone] Referring Provider: Dominik Davon, [address], [place], [address]. tel:[phone] [facility], [address], [place], [place], [address], [place] tel:[phone] [facility] No Information 3 Davon Cartery. [address], [place], [address], [place]. tel:[phone] Referring Provider: Dominik Davon, [address], [place], [address]. tel:[phone] [facility], [address], [place], [address], [place] tel:[phone] [facility] back pain (chief complaint) SacroiliitisSacroi liitis, not elsewhere classified 3 [facility]. [address], [place], [place], [address], [place]. tel:[phone] Referring Provider: Shahida Sutton [employer]TER [employer], [address] [place], [address]. tel:[phone] [facility], [address], [place], [place], [address], [place] tel:[phone] [facility] No Information 3 Davon Lehman. [address], [place], [address], [place]. tel:[phone] Referring Provider: Dominik Davon, [address], [place], [address]. tel:[phone] Est Pt Eval 25 Min Telehealth [facility], [address], [place], [place], [address], [place] tel:[phone] [facility] back pain (chief complaint) Radiculopathy, lumbar regionPain in left hipSacroiliitisBod y mass index (BMI) 36.0-36.9, adult 3 Ketola Aydee. [address], [place], [place], [address], [place]. tel:[phone] Referring Provider: Shahida Sutton CNP, [address] [place], [address]. tel:[phone] [facility], [address], [place], [place], [address], [place] tel:[phone] [facility] No Information 3 [place] Annamarie. [address], [place], [address], [place]. tel:[phone] Referring Provider: Shahida Sutton CNP, [address] [place], [address]. tel:[phone] [facility], [address], [place], [address], [place] tel:[phone] [facility] No Information 3 Michelle Annamarie. [address] [facility] [address], [address], [place]. tel:[phone] Referring Provider: Shahida Sutton CNP, [address] [place], [address]. tel:[phone] Est Pt Eval 25 Min [facility], [address] [facility] [address], [place], [address], [place] tel:[phone] [facility] back pain (chief complaint) Radiculopathy, lumbar regionPain in left hipSacroiliitisBod y mass index (BMI) 36.0-36.9, adult Jun- 3 Ketola Aydee. [address] [facility] [address], [place], [address], [place]. tel:[phone] Referring Provider: Shahida Sutton CNP, [address] [place], [address]. tel:[phone] [facility], [address] [facility] [address], [place], [address], [place] tel:[phone] [facility] No Information 3 Ketola Torrance. [address], [address], [place]. tel:[phone] Referring Provider: Shahida Sutton CNP, [address] [place], [address]. tel:[phone] Est Pt Eval 25 Min Telehealth [facility], [address] [facility] [address], [place], [address], [place] tel:[phone] [facility] back pain (chief complaint) bilateral hip pain (chief complaint) Radiculopathy, lumbar regionPain in left hipSacroiliitisBod y mass index (BMI) 37.0-37.9, adult Mar- 3 Ketola Torrance. [address], [place], [place], [address], [place]. tel:[phone] Referring Provider: Shahida Sutton CNP, [address] [place], [address]. tel:[phone] [facility], [address], [place], [place], [address], [place] tel:[phone] [facility] No Information 3 Davon Lehman. [address], [place], [address], [place]. tel:[phone] Referring Provider: Dominik Mays, [address], [place], [address]. tel:[phone] [facility], [address], [place], [address], [place] tel:[phone] [facility] back pain (chief complaint) Radiculopathy, lumbar regionRadiculopath y, lumbar region 3 [facility]. [address], [place], [place], [address], [place]. tel:[phone] Referring Provider: Shahida Sutton CNP, [address] [place], [address]. tel:[phone] [facility], [address], [place], [place], [address], [place] tel:[phone] [facility] No Information 3 Davon Lehman. [address], [place], [address], [place]. tel:[phone] Referring Provider: Dominik Mays, [address], [place], [address]. tel:[phone] [facility], [address], [place], [place], [address], [place] tel:[phone] [facility] No Information 3 Kenneth Vance. [address], [place], [place], [address], [place]. tel:[phone] Referring Provider: Rajiv Cooper, [address], [place], [address] . tel:[phone] [facility], [address], [place], [address], [place] tel:[phone] [facility] left hip pain (chief complaint) Pain in left hipNeuralgia and neuritis, unspecifiedPain in left hip 3 [facility]. [address], [place], [place], [address], [place]. tel:[phone] Referring Provider: Shahida Sutton CNP, [address] [place], [address]. tel:[phone] [facility], [address], [place], [place], [address], [place] tel:[phone] [facility] No Information 3 Kenneth Vance. [address], [place], [place], [address], [place]. tel:[phone] Referring Provider: Shahida Sutton CNP, [address] [place], [address]. tel:[phone] Est Pt Eval 25 Min Telehealth [facility], [address], [place], [place], [address], [place] tel:[phone] [facility] back pain (chief complaint) Body mass index (BMI) 35.0-35.9, adultRadiculopathy , lumbar regionPain in left hipSacroiliitis Fe 3 Ketola Aydee. [address], [place], [place], [address], [place]. tel:[phone] Referring Provider: Shahida Sutton CNP, [address] [place], [address]. tel:[phone] Est Pt Eval 25 Min Telehealth [facility], [facility], [address] [facility] [address], [place], [address], [place] tel:[phone] [facility] back pain (chief complaint) Radiculopathy, lumbar regionSacroiliitis Pain in left hipPain in right shoulder 3 Ketola Torrance. [address], [address], [place], [address], [place]. tel:[phone] Referring Provider: Shahida Sutton CNP, [address] [place], [address]. tel:[phone] Est Pt Eval 25 Min Telehealth [facility], [facility], [address], [address], [place] tel:[phone] [facility] left hip pain (chief complaint) right shoulder pain (chief complaint) Radiculopathy, lumbar regionSacroiliitis Pain in left hipPain in right shoulderBody mass index (BMI) 35.0-35.9, adult 2 Ketola Aydee. [address], [place], [address], [place]. tel:[phone] Referring Provider: Shahida Sutton CNP, [address] [place], [address]. tel:[phone] [facility], [address], [place], [address], [place] tel:[phone] [facility] right shoulder pain (chief complaint) Pain in right shoulderNeuralgia and neuritis, unspecifiedPain in right shoulderNeuralgia and neuritis, unspecified 2 [facility]. [address], [place], [place], [address], [place]. tel:[phone] Referring Provider: Dominik Mays, [address], [place], [address]. tel:[phone] Est Pt Eval 25 Min [facility], [address], [place], [place], [address], [place] tel:[phone] [facility] back pain (chief complaint) Pain in right shoulderPain in left hipRadiculopathy, lumbar regionSacroiliitis Body mass index (BMI) 35.0-35.9, adult 2 Ketola Aydee. [address], [place], [place], [address], [place]. tel:[phone] Referring Provider: Shahida Sutton CNP, [address] [place], [address]. tel:[phone] [facility], [address], [place], [place], [address], [place] tel:[phone] [facility] No Information 2 Ketola Aydee. [address], [place], [address], [place]. tel:[phone] Referring Provider: Shahida Sutton CNP, [address] [place], [address]. tel:[phone] [facility], [address], [place], [place], [address], [place] tel:[phone] [facility] No Information 2 Davon Lehman. [address], [place], [address], [place]. tel:[phone] Referring Provider: Dominik Mays, [address], [place], [address]. tel:[phone] [facility], [facility], [address], [place], [place], [address], [place] tel:[phone] [facility] No Information 2 Sil Bajwa. [address], [place], [place], [address], [place]. tel:[phone] Referring Provider: Shahida Sutton CNP, [address] [place], [address]. tel:[phone] Est Pt Eval 25 Min Telehealth [facility], [address], [place], [place], [address], [place] tel:[phone] [facility] left hip pain (chief complaint) Pain in left hipRadiculopathy, lumbar regionPain in right shoulderBody mass index (BMI) 35.0-35.9, adult Oct- 2 Roly Velazquez. [address], [place], [address], [place]. tel:[phone] Referring Provider: Shahida Sutton CNP, [address] [place], [address]. tel:[phone] Est Pt Eval 25 Min Telehealth [facility], [address], [place], [place], [address], [place] tel:[phone] [facility] right shoulder pain (chief complaint) back pain (chief complaint) Body mass index (BMI) 35.0-35.9, adultRadiculopathy , lumbar regionPain in left hipPain in right shoulder Sep-0 2 She Roderick. [address], [place], [address], [place]. tel:[phone] Referring Provider: Shahida Sutton CNP, [address] [place], [address]. tel:[phone] [facility], [address], [place], [place], [address], [place] tel:[phone] [facility] Radiculopathy, lumbar regionPain in left hip 2 Isaac Torres. [address], [facility] , [place], [address], [place]. tel:[phone] Referring Provider: Shahida Sutton CNP, [address] [place], [address]. tel:[phone] [facility], [address], [place], [place], [address], [place] tel:[phone] [facility] Radiculopathy, lumbar regionPain in left hip 2 Stevens Nataliia. [address], [place], [address], [place]. tel:[phone] Referring Provider: Shahida Sutton CNP, [address] [place], [address]. tel:[phone] Est Pt Eval 25 Min [facility], [address], [place], [place], [address], [place] tel:[phone] [facility] back pain (chief complaint) bilateral shoulder pain (chief complaint) Intervertebral disc disorders w radiculopathy, lumbar regionPain in left hipBody mass index (BMI) 35.0-35.9, adult Oct- 2 She Qijohnson. [address], [place], [address], [place]. tel:[phone] Referring Provider: Shahida Sutton CNP, [address] [place], [address]. tel:[phone] [facility], [address], [place], [address], [place] tel:[phone] [facility] No Information 2 She Roderick. [address], [place], [address], [place]. tel:[phone] Referring Provider: Shahida Sutton CNP, [address] [place], [address]. tel:[phone] Psychotherap y, 30 minutes with patient Telephone Only [facility], [address], [place], [place], [address], [place] tel:[phone] [facility] Pain disorder with related psychological factorsMajor depressive disorder, recurrent, mild 2 Jesus Sanders. [address], [place], [address], [place]. tel:[phone] Referring Provider: Shahida uStton CNP, [address] [place], [address]. tel:[phone] [facility], [address], [place], [address], [place] tel:[phone] [facility] No Information 2 Adryan Louis. [address], [place], [address], [place]. tel:[phone] Referring Provider: Shahida Sutton CNP, [address] [place], [address]. tel:[phone] Est Pt Eval 25 Min Telehealth [facility], [address] [facility] [address], [place], [place], [address], [place] tel:[phone] [facility] left hip pain (chief complaint) Intervertebral disc disorders w radiculopathy, lumbar regionOsteoarthrit is of hip, unspecifiedPain in left hipBody mass index (BMI) 37.0-37.9, adult 2 Maria Isabel Al. [address] [facility] [address], [place], [address], [place]. tel:[phone] Referring Provider: Shahida Sutton CNP, [address] [place] [address], [address]. tel:[phone] Psychotherap y, 30 minutes with patient [facility], [address] [facility] [address], [place], [address], [place] tel:[phone] [facility] Pain disorder with related psychological factors [address] Jesus Sanders[address] [facility] [address], [place], [address], [place]. tel:[phone] Referring Provider: Shahida Sutton CNP, [address] [place], [address]. tel:[phone] Est Pt Eval 25 Min Telehealth [facility], [address] [facility] [address], [place], [address], [place] tel:[phone] [facility] back pain (chief complaint) Intervertebral disc disorders w radiculopathy, lumbar regionPain in left hipPain in left legOsteoarthritis of hip, unspecified 2 Maria Isabel Al. [address] [facility] [address], [place], [address], [place]. tel:[phone] Referring Provider: Shahida Sutton CNP, [address] [place], [address]. tel:[phone] Psychotherap y, 30 minutes with patient [facility], [address], [place], [place], [address], [place] tel:[phone] [facility] Pain disorder with related psychological factorsMajor depressive disorder, recurrent, mild Aug- 2 Spetommy Tommy. [address] , [address], [address], [place]. tel:[phone] Referring Provider: Shahida Sutton CNP, [address] [place] [address], [address]. tel:[phone] Est Pt Eval 25 Min [facility], [address] [facility] [address], [place], [address], [place] tel:[phone] [facility] back pain (chief complaint) Other intervertebral disc degeneration, lumbar regionPain in left hipBody mass index (BMI) 37.0-37.9, adult 2 She Qiying. [address], [place], [address], [place]. tel:[phone] Referring Provider: Shahida Sutton CNP, [address] [place], [address]. tel:[phone] [facility], [address], [place], [place], [address], [place] tel:[phone] [facility] No Information 2 She Qiying. [address] , [address], [place], [address], [place]. tel:[phone] Referring Provider: Shahida Sutton CNP, [address] [place], [address]. tel:[phone] Psychotherap y, 30 minutes with patient [facility], [address], [place], [place], [address], [place] tel:[phone] [facility] Pain disorder with related psychological factorsMajor depressive disorder, recurrent, mild 2 Jesus Sanders. [address], [address], [place]. tel:[phone] Referring Provider: Shahida Sutton CNP, [address] [place], [address]. tel:[phone] [facility], [address], [address], [place] tel:[phone] [facility] No Information 2 Bobbyner Joni. [address], [place], [address], [place]. tel:[phone] Referring Provider: Shahida Sutton CNP, [address] [place], [address]. tel:[phone] [facility], [address], [place], [address], [place] tel:[phone] [facility] No Information 2 Stacie Vaughn. [address], [address], [place]. tel:[phone] Referring Provider: Shahida Sutton CNP, [address] [place], [address]. tel:[phone] Psychiatric Diagnostic Evaluation [facility], [address], [place], [place], [address], [place] tel:[phone] [facility] Pain disorder with related psychological factorsMajor depressive disorder, recurrent, moderate Jun- 2 Jesus Sanders. [address], [place], [address], [place]. tel:[phone] Referring Provider: Shahida Sutton CNP, [address] [place], [address]. tel:[phone] Est Pt Eval 25 Min [facility], [address], [place], [place], [address], [place] tel:[phone] [facility] back pain (chief complaint) Spondyls w/o myelopathy or radiculopathy, lumbosacr regionPain in left hipLong term (current) use of opiate analgesicBody mass index (BMI) 37.0-37.9, adult Apr-0 2 She Qiying. [address], [place], [address], [place]. tel:[phone] Referring Provider: Shahida Sutton CNP, [address] [place], [address]. tel:[phone] Est Pt Eval 25 Min [facility], [address], [place], [place], [address], [place] tel:[phone] [facility] back pain (chief complaint) Spondyls w/o myelopathy or radiculopathy, lumbosacr regionPain in left hipPain in left legLong term (current) use of opiate analgesicBody mass index (BMI) 37.0-37.9, adult Mar-0 2 She Qiying. [address], [address], [place], [address], [place]. tel:[phone] Referring Provider: Shahida Sutton CNP, [address] [place], [address]. tel:[phone] Est Pt Eval 25 Min [facility], [address], [place], [place], [address], [place] tel:[phone] [facility] back pain (chief complaint) Intervertebral disc disorders w radiculopathy, lumbar regionSpondyls w/o myelopathy or radiculopathy, lumbosacr regionPain in left hipBody mass index (BMI) 37.0-37.9, adult Feb- 2 Roly Velazquez. [address], [address], [place], [address], [place]. tel:[phone] Referring Provider: Shahida Sutton CNP, [address] [place], [address]. tel:[phone] Est Pt Eval 25 Min RE[facility] ValentinC, [address], [place], [place], [address], [place] tel:[phone] [facility] back pain (chief complaint) Pain in left hipLong term (current) use of opiate analgesicSpondyls w/o myelopathy or radiculopathy, lumbosacr region 1 She Qiying. [address], [place], [address], [place]. tel:[phone] Referring Provider: Shahida Sutton CNP, [address] [place], [address]. tel:[phone] REINIER ValentinC, [address], [place], [place], [address], [place] tel:[phone] [facility] No Information 1 She Qiying. [address], [place], [address], [place]. tel:[phone] Referring Provider: Shahida Sutton CNP, [address] [place], [address]. tel:[phone] [facility] ValentinC, [address], [place], [place], [address], [place] tel:[phone] [facility] No Information 1 Xin Quinones. [address], [place], [address], [place]. tel:[phone] Referring Provider: Joni Calderon, [address], [place], [address]. tel:[phone] [facility], [address], [place], [address], [place] tel:[phone] [facility] back pain (chief complaint) left leg pain (chief complaint) left hip pain (chief complaint) Radiculopathy, lumbar regionRadiculopath y, lumbar region 1 [facility]. [address], [place], [place], [address], [place]. tel:[phone] Referring Provider: Joni Calderon, [address], [place], [address]. tel:[phone] Est Pt Eval 25 Min [facility], [address], [place], [place], [address], [place] tel:[phone] [facility] back pain (chief complaint) Pain in left hipRadiculopathy, lumbar region 1 Stacie Vaughn. [address], [place], [address], [place]. tel:[phone] Referring Provider: Shahida Sutton [employer], [address] [facility], [place], [address]. tel:[phone] Est Pt Eval 25 Min [facility], [address], [place], [place], [address], [place] tel:[phone] [facility] back pain (chief complaint) right shoulder pain (chief complaint) Intervertebral disc disorders w radiculopathy, lumbar regionPain in right shoulder 1 Stacie Vaughn. [address], [address], [place], [address], [place]. tel:[phone] Referring Provider: Shahida Sutton CNP, [address] [place], [address]. tel:[phone] Est Pt Eval 25 Min [facility], [address], [place], [place], [address], [place] tel:[phone] [facility] right shoulder pain (chief complaint) Pain in right shoulderPain in right armCervicalgiaOthe r intervertebral disc degeneration, lumbar region 1 Gianluca Hsu. [address], [place], [address], [place]. tel:[phone] Referring Provider: Shahida Sutton CNP, [address] [place], [address]. tel:[phone] [facility], [address], [place], [address], [place] tel:[phone] [facility] No Information Sep-3 1 Stayner Joni. [address], [place], [address], [place]. tel:[phone] Referring Provider: Shahida Sutton CNP, [address] [place], [address]. tel:[phone] [facility], [address], [place], [place], [address], [place] tel:[phone] [facility] No Information Sep-3 1 Stayner Joni. [address], [place], [address], [place]. tel:[phone] Referring Provider: Shahida Sutton CNP, [address] [place], [address]. tel:[phone] Est Pt Eval 25 Min [facility], [address], [place], [place], [address], [place] tel:[phone] [facility] back pain (chief complaint) right shoulder pain (chief complaint) Spondylosis w/o myelopathy or radiculopathy, lumbar regionPain in left legPain in right shoulder Sep-2 1 Gianluca Hsu. [address], [place], [address], [place]. tel:[phone] Referring Provider: Shahida Sutton CNP, [address] [place], [address]. tel:[phone] Est Pt Eval 25 Min [facility], [address], [place], [place], [address], [place] tel:[phone] [facility] back pain (chief complaint) Low back painPain in left hipPain in right shoulder 1 Jameoka Orina. [address], [place], [address], [place]. tel:[phone] Referring Provider: Shahida Sutton CNP, [address] [place], [address]. tel:[phone] [facility], [address], [place], [place], [address], [place] tel:[phone] [facility] No Information 1 Machoka Orina. [address], [place], [address], [place]. tel:[phone] Referring Provider: Shahida Sutton CNP, [address] [place], [address]. tel:[phone] Est Pt Eval 25 Min [facility], [address], [place], [place], [address], [place] tel:[phone] [facility] back pain (chief complaint) Other intervertebral disc degeneration, lumbar region 1 Gianluca Velascoh. [address], [place], [address], [place]. tel:[phone] Referring Provider: Shahida Sutton [employer], [address] [facility], [place], [address]. tel:[phone] [facility], [address], [place], [place], [address], [place] tel:[phone] [facility] No Information 1 Maria Isabel Barrera. [address], [place], [place], [address], [place]. tel:[phone] Referring Provider: Bruce Nam, [address], [place], [address] . tel:[phone] [facility], [address], [place], [address], [place] tel:[phone] [facility] back pain (chief complaint) Sacroiliitis, not elsewhere classifiedSacroili itis, not elsewhere classified 1 [facility]. [address], [place], [place], [address], [place]. tel:[phone] Referring Provider: Bruce Nam, [address], [place], [address] . tel:[phone] [facility], [address], [place], [address], [place] tel:[phone] [facility] No Information 1 Kenneth Vance. [address], [place], [place], [address], [place]. tel:[phone] Referring Provider: Shahida Sutton CNP, [address] [place], [address]. tel:[phone] [facility], [address], [place], [place], [address], [place] tel:[phone] [facility] No Information 1 Kenneth Vance. [address] [facility], [address], [place], [place], [address], [place]. tel:[phone] Referring Provider: Shahida Sutton CNP, [address] [place], [address]. tel:[phone] Est Pt Eval 25 Min [facility], [address] [facility] [address], [place], [place], [address], [place] tel:[phone] [facility] back pain (chief complaint) Intervertebral disc disorders w radiculopathy, lumbar region 1 Gianluca Hsu. [address] [facility] [address], [place], [address], [place]. tel:[phone] Referring Provider: Shahida Sutton CNP, [address] [place], [address]. tel:[phone] [facility], [address] [facility], [address], [place], [address], [place] tel:[phone] [facility] back pain (chief complaint) Pain in right hipPain in left hipPain in right hipPain in left hip 1 [facility]. [address] [facility] [address], [place], [place], [address], [place]. tel:[phone] Referring Provider: Shahida Sutton CNP, [address] [place], [address]. tel:[phone] [facility], [address], [place], [place], [address], [place] tel:[phone] [facility] No Information 1 Xin Quinones. [address], [place], [address], [place]. tel:[phone] Referring Provider: Joni Calderon, [address], [place], [address]. tel:[phone] Est Pt Eval 25 Min REINIER Valentin, [address], [place], [place], [address], [place] tel:[phone] [facility] back pain (chief complaint) Spondylosis w/o myelopathy or radiculopathy, lumbar regionLong term (current) use of opiate analgesicPain in left hip 1 Gianluca Hsu. [address], [place], [address], [place]. tel:[phone] Referring Provider: Shahida Sutton CNP, [address] [place], [address]. tel:[phone] [facility], [address], [place], [place], [address], [place] tel:[phone] [facility] No Information 1 Kenneth Vance. [address], [place], [place], [address], [place]. tel:[phone] Referring Provider: Shahida Sutton CNP, [address] [place], [address]. tel:[phone] Est Pt Eval 25 Min [facility], [address], [place], [place], [address], [place] tel:[phone] [facility] back pain (chief complaint) Low back painIntervertebral disc disorders w radiculopathy, lumbar regionRadiculopath y, lumbar regionSpinal stenosis, lumbar region with neurogenic claudication 1 Moualee Paulette. [address], [place], [address], [place]. tel:[phone] Referring Provider: Shahida Sutton CNP, [address] [place], [address]. tel:[phone] Est Pt Eval 25 Min [facility], [address], [place], [place], [address], [place] tel:[phone] [facility] back pain (chief complaint) Low back painIntervertebral disc disorders w radiculopathy, lumbar regionRadiculopath y, lumbar region 1 Moualee Paulette. [address], [place], [address], [place]. tel:[phone] Referring Provider: Shahida Sutton CNP, [address] [place], [address]. tel:[phone] [facility], [address], [place], [place], [address], [place] tel:[phone] [facility] No Information 1 Moualee Paulette. [address], [place], [address], [place]. tel:[phone] Referring Provider: Shahida Sutton CNP, [address] [place], [address]. tel:[phone] [facility], [address], [place], [place], [address], [place] tel:[phone] [facility] No Information 1 Xin Quionnes. [address], [place], [address], [place]. tel:[phone] Referring Provider: Shahida Sutton CNP, [address] [place], [address]. tel:[phone] [facility], [address], [place], [place], [address], [place] tel:[phone] [facility] No Information 1 Xin Quinones. [address], [place], [address], [place]. tel:[phone] Referring Provider: Shahida Sutton CNP, [address] [place], [address]. tel:[phone] Est Pt Eval 25 Min [facility], [address], [place], [place], [address], [place] tel:[phone] [facility] back pain (chief complaint) Low back painRadiculopathy, lumbar regionSpinal stenosis, lumbar region with neurogenic claudication 1 Chadwick Mayo. [address], [place], [address], [place]. tel:[phone] Referring Provider: Shahida Sutton CNP, [address] [place], [address]. tel:[phone] [facility], [address], [place], [address], [place] tel:[phone] [facility] back pain (chief complaint) Spinal stenosis, lumbar region with neurogenic claudicationSpondy losis w/o myelopathy of lumbar regionSpondylosis w/o myelopathy or radiculopathy, lumbar regionSpondyls w/o myelopathy or radiculopathy, lumbosacr region 1 [facility]. [address], [place], [place], [address], [place]. tel:[phone] Referring Provider: Shahida Sutton CNP, [address] [place], [address]. tel:[phone] [facility], [address], [place], [place], [address], [place] tel:[phone] [facility] No Information 1 Xin Quinones. [address], [place], [address], [place]. tel:[phone] Referring Provider: Joni Calderon, [address], [place], [address]. tel:[phone] Psychotherap y, 30 minutes with patient [facility], [address], [place], [place], [address], [place] tel:[phone] [facility] Pain disorder with related psychological factorsMajor depressive disorder, recurrent, mild 1 Jesus Sanders. [address], [place], [address], [place]. tel:[phone] Referring Provider: Shahida Sutton CNP, [address] [place], [address]. tel:[phone] Psychotherap y, 30 minutes with patient [facility], [address], [place], [place], [address], [place] tel:[phone] [facility] Pain disorder with related psychological factorsMajor depressive disorder, recurrent, mild 1 Jesus Sanders. [address], [place], [address], [place]. tel:[phone] Referring Provider: Shahida Sutton CNP, [address] [place], [address]. tel:[phone] Est Pt Eval 25 Min [facility], [address], [place], [place], [address], [place] tel:[phone] [facility] back pain (chief complaint) Intervertebral disc disorders w radiculopathy, lumbar regionLow back painPain in right shoulder 1 Keyshawn Bazzi. [address] [facility] [address], [place], [address], [place]. tel:[phone] Referring Provider: Shahida Sutton CNP, [address] [place] [address], [address]. tel:[phone] Psychotherap y, 30 minutes with patient [facility], [address], [place], [place], [address], [place] tel:[phone] [facility] Pain disorder with related psychological factorsMajor depressive disorder, recurrent, mild 1 Jesus Sanders. [address] [facility], [address], [address], [place]. tel:[phone] Referring Provider: Shahida Sutton CNP, [address] [place], [address]. tel:[phone] Est Pt Eval 25 Min [facility] Valentin, [address], [place], [place], [address], [place] tel:[phone] [facility] back pain (chief complaint) Radiculopathy, lumbar regionSpondylosis w/o myelopathy of lumbar regionLow back pain 1 Chawdick Mayo. [address] [facility] [address], [address], [place]. tel:[phone] Referring Provider: Shahida Sutton CNP, [address] [place], [address]. tel:[phone] Psychotherap y, 30 minutes with patient MITZY Valentin, [address] [facility] [address], [place], [address], [place] tel:[phone] [facility] Pain disorder with related psychological factors 1 Jesus Sanders. [address] [facility], [address], [place], [address], [place]. tel:[phone] Referring Provider: Shahida Sutton CNP, [address] [place], [address]. tel:[phone] MITZY Valentin, [address] [facility] [address], [place], [address], [place] tel:[phone] [facility] Radiculopathy, lumbar region 1 Mundo Katz. [address] [place], [address], [place]. tel:[phone] Referring Provider: Shahida Sutton CNP, [address] [place], [address]. tel:[phone] [facility], [address] [facility] [facility] [address], [address], [place] tel:[phone] [facility] back pain (chief complaint) Spondylosis w/o myelopathy of lumbar regionRadiculopath y, lumbar regionIntervertebr al disc disorders with radiculopathy, lumbar regionOther intervertebral disc degeneration, lumbar regionRadiculopath y, lumbar regionIntervertebr al disc disorders w radiculopathy, lumbar regionOther intervertebral disc degeneration, lumbar region 1 [facility]. [address] [facility] [address], [place], [address], [place]. tel:[phone] Referring Provider: Shahida Sutton CNP, [address] [place], [address]. tel:[phone] [facility], [address], [place], [place], [address], [place] tel:[phone] [facility] No Information 1 Xin Quinones. [address], [place], [address], [place]. tel:[phone] Referring Provider: Joni Calderon, [address], [place], [address]. tel:[phone] Psychotherap y, 30 minutes with patient [facility], [address] [facility] [address], [place], [place], [address], [place] tel:[phone] [facility] Pain disorder with related psychological factorsMajor depressive disorder, recurrent, mild 0 Jesus Sanders. [address], [place], [address], [place]. tel:[phone] Referring Provider: Shahida Sutton CNP, [address] [place], [address]. tel:[phone] Est Pt Eval 15 Min [facility], [address], [place], [place], [address], [place] tel:[phone] [facility] back pain (chief complaint) Low back painRadiculopathy, lumbar regionLong term (current) use of opiate analgesicOther intervertebral disc degeneration, lumbar regionPain in right shoulder 0 Maria Isabel Al. [address] [facility] [address], [place], [address], [place]. tel:[phone] Referring Provider: Shahida Sutton CNP, [address] [place], [address]. tel:[phone] [facility], [address], [place], [place], [address], [place] tel:[phone] [facility] No Information 0 Stayner Joni. [address] [facility] [address], [place], [facility], . tel:[phone] Referring Provider: Shahida Sutton CNP, [address] [place], [address]. tel:[phone] [facility], [address], [place], [place], [address], [place] tel:[phone] [facility] No Information 0 Isaac Torres. [address] [facility] [address], [facility] , [place], [place], [facility], . tel:[phone] Referring Provider: Shahida Sutton CNP, [address] [place], [address]. tel:[phone] Psychotherap y, 45 minutes with patient [facility], [address], [place], [place], [address], [place] tel:[phone] [facility] Pain disorder with related psychological factorsMajor depressive disorder, recurrent, mild Dec- 0-202 0 Jesus Sanders. [address] [facility], [address], [place], [facility], [place]. tel:[phone] Referring Provider: Shahida Sutton CNP, [address] [place], [address]. tel:[phone] Psychotherap y, 30 minutes with patient [facility], [address], [place], [place], [address], [place] tel:[phone] [facility] Pain disorder with related psychological factorsMajor depressive disorder, recurrent, moderate Dec-0 2-202 0 Jesus Sanders. [address], [place], [facility], [place]. tel:[phone] Referring Provider: Shahida Sutton CNP, [address] [place], [address]. tel:[phone] Psychotherap y, 30 minutes with patient REINIER Valentin, [address], [place], [place], [address], [place] tel:[phone] [facility] Pain disorder with related psychological factorsMajor depressive disorder, recurrent, moderate 0 Jesus Sanders. [address] [facility], [address], [address], [place]. tel:[phone] Referring Provider: Shahida Sutton CNP, [address] [place], [address]. tel:[phone] Est Pt Eval 15 Min [facility], [address], [place], [place], [address], [place] tel:[phone] [facility] back pain (chief complaint) Intervertebral disc disorders w radiculopathy, lumbar regionLong term (current) use of opiate analgesicLow back painOther intervertebral disc degeneration, lumbar region 0 Keyshawn Bazzi. [address] [facility] [address], [place], [address], [place]. tel:[phone] Referring Provider: Shahida Sutton CNP, [address] [place], [address]. tel:[phone] [facility], [address] [facility] [address], [place], [place], [address], [place] tel:[phone] [facility] No Information 0 Keyshawn Bazzi. [address] [facility] [address], [place], [address], [place]. tel:[phone] Referring Provider: Shahida Sutton CNP, [address] [place], [address]. tel:[phone] Psychotherap y, 45 minutes with patient REINIER Valentin, [address] [facility] [address], [place], [place], [address], [place] tel:[phone] [facility] Pain disorder with related psychological factorsMajor depressive disorder, recurrent, moderate Jan-03 05- 0 Jesus Sanders. [address] [facility] [address], [place], [address], [place]. tel:[phone] Referring Provider: Shahida Sutton CNP, [address] [place], [address]. tel:[phone] Psychiatric Diagnostic Evaluation MITZY Valentin, [address] [facility] [address], [place], [place], [address], [place] tel:[phone] [facility] Pain disorder with related psychological factorsMajor depressive disorder, recurrent, moderate Jan- 0 Jesus Sanders. [address] [facility] [facility] [address], [place], [address], [place]. tel:[phone] Referring Provider: Shahida Sutton CNP, [address] [place], [address]. tel:[phone] Est Pt Eval 15 Min [facility], [address] [facility] , [place], [place], [address], [place] tel:[phone] [facility] back pain (chief complaint) Intervertebral disc disorders w radiculopathy, lumbar regionLow back painOther intervertebral disc degeneration, lumbar regionPain in right shoulderRadiculopa thy, lumbar regionCervicalgia Nov-0 0 German Murphy. [address] [place], [address], [place]. Referring Provider: Shahida Sutton CNP, [address] [place], [address]. tel:[phone] Est Pt Eval 15 Min Telehealth MITZY Valentin, [address], [place], [id number], [place] tel:[phone] [facility] back pain (chief complaint) Intervertebral disc disorders w radiculopathy, lumbar regionOther intervertebral disc degeneration, lumbar regionRadiculopath y, lumbar region 0 German Kaylyn Jeffrey. [address] [place], [address], [place]. Referring Provider: Shahida Sutton STEAM FITTER HELPER, [address] [place], [address]. tel:[phone] [facility], [address] [facility], [address], [place] tel:[phone] [facility] back pain (chief complaint) Radiculopathy, lumbar regionIntervertebr al disc disorders with radiculopathy, lumbar regionOther intervertebral disc degeneration, lumbar regionRadiculopath y, lumbar regionIntervertebr al disc disorders w radiculopathy, lumbar regionOther intervertebral disc degeneration, lumbar region 0 [facility]. [address] [facility] [address], [place], [id number], [place]. tel:[phone] Referring Provider: Joni Calderon, [address] [facility] [address], [place], [address]. tel:[phone] [facility], [address], [place], [address], [place] tel:[phone] [facility] No Information 0 Xin Quinones. [address] [facility] [address], [place], [address], [place]. tel:[phone] Referring Provider: Joni Calderon, [address] [facility] [address], [place], [address]. tel:[phone] Est Pt Eval 25 Min Tele[facility], [address] [facility] [address], [place], [place], [address], [place] tel:[phone] [facility] back pain (chief complaint) right neck pain (chief complaint) Low back painOther intervertebral disc degeneration, lumbar regionRadiculopath y, lumbar regionCervicalgiaP ain in right shoulderLong term (current) use of opiate analgesic Sep-2 0 Jasmine Hernandez. [address] [facility] [address], [place], [address], [place]. tel:[phone] Referring Provider: Shahida Sutton CNP, [address] [place], [address]. tel:[phone] [facility], [address] [facility] [address], [place], [place], [id number], [place] tel:[phone] [facility] Radiculopathy, lumbar region Sep-2 0 Isaac Torres. [address] [facility] [address], [facility] , [place], [address], [place]. tel:[phone] Referring Provider: Shahida Sutton CNP, [address] [place], [address]. tel:[phone] Est Pt Eval 15 Min Telehealth [facility], [address] [facility] [address], [place], [place], [address], [place] tel:[phone] [facility] back pain (chief complaint) Diabetes insipidusLow back painRadiculopathy, lumbar region Sep-1 0 [place]daniel Smithy. [address] [facility] [address], [place], [address], [place]. tel:[phone] Referring Provider: Shahida Sutton CNP, [address] [place], [address]. tel:[phone] [facility], [address] [facility], [address], [place] tel:[phone] [facility] back pain (chief complaint) Radiculopathy, lumbar regionOther intervertebral disc degeneration, lumbar regionIntervertebr al disc disorder w/ radiculopathy of lumbar regionRadiculopath y, lumbar regionOther intervertebral disc degeneration, lumbar regionIntervertebr al disc disorders w radiculopathy, lumbar region 0 [facility]. [address], [place], [place], [address], [place]. tel:[phone] Referring Provider: Shahida Sutton CNP, [address] [place], [address]. tel:[phone] [facility], [address], [place], [address], [place] tel:[phone] [facility] No Information 0 Xin Quinones. [address], [address], [place]. tel:[phone] Referring Provider: Joni Calderon, [address], [address]. tel:[phone] Est Pt Eval 15 Min [facility], [address], [place], [place], [id number], [place] tel:[phone] [facility] back pain (chief complaint) Diabetes insipidusLow back painRadiculopathy, lumbar region 0 [place] Moon. [address], [place], [address], [place]. tel:[phone] Referring Provider: Shahida Sutton CNP, [address] [place], [address]. tel:[phone] Est Pt Eval 15 Min Telehealth [facility], [facility], [address], [place], [place], [id number], [place] tel:[phone] [facility] back pain (chief complaint) Diabetes insipidusLow back painRadiculopathy, lumbar region 0 Collins Moon. [address] [facility] [address], [address], [place]. tel:[phone] Referring Provider: Shahida Sutton CNP, [address] [place], [address]. tel:[phone] New Pt Eval 45 Min Telehealth [facility], [facility], [address] [facility] [address], [place], [id number], [place] tel:[phone] [facility] back pain (chief complaint) Radiculopathy, lumbar regionLow back painDiabetes insipidus 0 Maria Isabel Al. [address] [facility] [address], [place], [address], [place]. tel:[phone] Referring Provider: Shahida Sutton CNP, [address] [place], [address]. tel:[phone] Family History Family Member Type Diagnosis Age At Onset Mother Problem (finding) Arthritis Mother Problem (finding) Liver Disease Mother Problem (finding) Depression Father Problem (finding) Arthritis Father Problem (finding) Heart Disease Father Problem (finding) Cancer Sister Problem (finding) Neurologiv Condition Payers Payer name Insurance type Covered alliance party ID Luz decker(s) [employer] [id number] Social History Type Description Quantity Date Captured Comments Alcohol Use Details Unknown Caffeine Use Details Unknown Tobacco Use Status No Information Smoking Status No Information Sex Male Chief Complaint And Reason For Visit No [...] educat ion regarding diet completed Referral Ordered: Neurosurgery (related to Intervertebral disc disorders w radiculopathy, lumbar region) ordered Referral Ordered: Referrals: Neurosurgery. Location: [facility]. Consult ordered Referral Ordered: Orthopedic Surgery (related to Pain in left hip) ordered Referral Ordered: Referrals: Orthopedic Surgery. Location: [facility]. Evaluate and treat ordered Referral Ordered: Referrals: [...] Ordered: lumbar epidural steroid injection L3-4 ordered Appointment Mauro Terrell BOOKED Future Order: Radiology Order X- RAY - Lumbar Spine (AP, Neutral, Lateral Neutral, Flexion, Extension Views) ([id number]), Ordered on: Ordered Future Order: Radiology Order CT Scan - Pelvis W/O Contrast ([id number]), Ordered on: Ordered Future Order: Radiology Order CT Scan - Lumbar Spine W/O Contrast ([id number]), Ordered on: Ordered Future Order: Radiology Order MR I - Lumbar Spine W/O Contrast ([id number]), Ordered on: Ordered Future Order: Radiology Order [...] Testing (with THC) (POCT-THC), Ordered on: Ordered Medication hydrocodone 5 mg -acetaminophen 325 mg tablet:take 1 tablet by oral route 4 times every day as needed for pain On Hold History Of Present Illness Encounter Date Complaint History Of Prese nt Illness lower back pain The primary pain involves the lower back. The pain pattern also includes the left hip. Pain intensity is currently 5/10. hip pain The pain is loca faraz in the left hip. Pain intensity is currently 8/10.The pain has been worsening . The pain is described as aching, dull and sharp. The following activities make the pain worse: sitting, standing and walking. The following activities make the pain better: pain medication. lower back pain The pain is loca faraz in the low back on both sides. Pain intensity is currently 8/10.The pain has been stable . The pain is described as aching, dull and sharp. The following activities make the pain worse: sitting, standing and walking. The following activities make the pain better: pain medication. lower back pain The pain is loca faraz in the low back on both sides. The lower back pain radiates into the left hip. Pain intensity is currently 7/10.The pain is described as aching, dull and sharp. The following activities make the pain worse: sitting, standing and walking. The following activities make the pain better: pain medication. lower back pain The pain is loca faraz in the left low back. Pain intensity is currently 7/10. lower back pain The pain is loca faraz in the left low back. The lower back pain radiates into the left hip. Pain intensity is currently 7/10.The pain is described as aching, dull and sharp. The following activities make the pain worse: sitting, standing and walking. The following activities make the pain better: pain medication, OTC meds and emu/topicalcream. shoulder pain The pain is loca faraz [...] Relieving factors include heat and pain meds. right shoulder pain Location: ri ght shoulder. back pain Location of pain is lower back and Right shoulder and lower left back and lower left hip.The patient describes the pain as an ache, burning, numbness, sharp, shooting, stabbing, throbbing and Tingling. Symptoms are aggravated by bending, daily activities, lifting, pushing, sitting, standing and walking. left hip pain Severity level i s [...] meds/drugs. Functional Status Date Functional Assessmen t No Information Instructions Date Instruction Denia taylor Medications: - Begin Percocet 5-325mg, 1 tablet up to 4x/day as needed, #120 for 30 days, for fill today 12/24/23 Do not take Ambien within 4 hours of Oxycodone and Gabapentin- STOP Mobridge 5-325mg up 4x/day- Continue Tizanidine 4mg up to 3x/day as needed- Continue Gabapentin 300mg as prescribed by outside providerAppointments: - Keep 12/27/23 appointment with [facility] today for surgical consult- Follow up with Francisco Javier Carlisle CNP in 4 weeks, telehealth ok 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, lumbar region Procedures: - Follow up with [facility] regarding Synvisc Injection for your Left Hip*Call in to scheduleAppointments: - Continue to follow up with orthopedic surgeon regarding potential left hip replacement Related to Pain in left hip Giving encouragement to exercise Related to Body mass index [BMI] 31.0-31.9, adult Nov- Procedures: - Follow up with [facility] regarding Synvisc Injection for your Left Hip*Call in to scheduleMedications: - Try over the counter Lidocaine patches for your left hip- Try Susannah's Web Brandywine, or Voltaren Gel for the affected areaAppointments: - Continue to follow up with orthopedic surgeon regarding potential left hip replacement Related to Pain in left hip Medications: - Refil l and continue Mobridge 5-325mg up to 4x/day as needed, #120 for 30 days, for fill 11/16/23 Do not take Ambien within 4 hours of Mobridge and Gabapentin- Refill and continue Tizanidine 4mg up to 3x/day as needed, for fill today 11/15/23- Continue Gabapentin 300mg as prescribed by outside providerReferrals: - Sent a referral to [facility] today for surgical consult* They will call you to schedule, if you do not hear back within a week please call [phone]: - Follow up with Francisco Javier Carlisle CNP in 4 weeks, telehealth ok 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, lumbar region Related to Prima ry osteoarthritis of right shoulder Giving encouragement to exercise Related to Body mass index [BMI] 31.0-31.9, adult Nov- Related to Prima ry osteoarthritis of right shoulder Procedures:- Continu e to monitor relief from the lumbar epidural steroid injectionImaging: - Schedule CT of Lumbar Spine at [facility] for updated imaging*Call [facility] at [phone] to scheduleMedications: - Refill and continue Mobridge 5-325mg up to 4x/day as needed, #56 for 14 days, for fill 11/16/23 Do not take Ambien within 4 hours of Mobridge and Gabapentin- Refill and continue Tizanidine 4mg up to 3x/day as needed, for fill today 11/15/23- Continue Gabapentin 300mg as prescribed by outside providerAppointments: - Follow up with Francisco Javier Carlisle CNP in 2 weeks, [place] CL[facility]* Schedule for before 11/29/23 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, lumbar region Procedures: - Follow up with [facility] regarding Synvisc Injection for your Left Hip*Call in to scheduleMedications: - Try over the counter Lidocaine patches for your left hip- Try Susannah's [employer] Brandywine, or Voltaren Gel for the affected areaAppointments: - Continue to follow up with orthopedic surgeon regarding potential left hip replacement Related to Pain in left hip Giving encouragement to exercise Related to Body mass index [BMI] 32.0-32.9, adult - Follow up in clini c with a nurse practitioner or physician assistant chief nursing officer about the results of today's injection Related to Radiculopathy, lumbar region - Continue to monito r for pain relief from right suprascapular radiofrequency ablation Related to Primary osteoarthritis of right shoulder - Follow up with [facility] regarding Synvisc Injection for your Left Hip*Call in to schedule- Continue to follow up with orthopedic surgeon regarding potential left hip replacement - Try over the counter Lidocaine patches for your left hip- Try Susannah's Web Brandywine, or Voltaren Gel for the affected area Related to Pain in left hip - Continue to monito r relief from the transforaminal epidural steroid injection- Schedule Lumbar Epidural Steroid Injection*Call [phone]- Schedule CT of Lumbar Spine at [facility]*Call [phone]- Refill and continue Mobridge 5-325mg up to 4x/day as needed, #120 for 30 days, for fill 10/17/23 do not take Ambien within 4 hours of Mobridge and Gabapentin- Continue Tizanidine 4mg up to 3x/day as needed, refills in pharmacy- Continue Gabapentin 300mg as prescribed by outside provider- Follow up with Francisco Javier Carlisle CNP in 4 weeks, [place] CL[facility] 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, lumbar region Lifestyle education regarding di et Related to Body mass index [BMI] 32.0-32.9, adult - Follow up as needed Related to Pain in right shoulder - Follow up with [facility] regarding Synvisc Injection for your Left Hip*[facility] should call you to schedule, if you do not hear from them for 1 week, call in.- Continue to follow up with orthopedic surgeon regarding potential left hip replacement - Try over the counter Lidocaine patches for your left hip- Try Sus[employer]'s [employer] Brandywine, or Voltaren Gel for the affected area Related to Pain in left hip - Continue to monito r relief from the transforaminal epidural steroid injection- Ordered Lumbar Epidural Steroid Injection- Ordered updated imaging for Lumbar Spine at [facility] will call you to schedule- Refill and continue Mobridge 5-325mg up to 4x/day as needed, #120 for 30 days, for fill 09/17/23 do not take Ambien within 4 hours of Mobridge and Gabapentin- Continue Tizanidine 4mg up to [...] Body mass index [BMI] 32.0-32.9, adult - Ordered right supr ascapular radiofrequency ablation today* If you would like sedation, please do not eat or drink for 8 hours prior to procedure and bring a livery car driver* [facility] will call you to schedule, if you do not hear back within a few days please call [phone] Related to Primary osteoarthritis of right shoulder - Continue to monito r relief from the transforaminal epidural steroid injection- Refill and continue Mobridge 5-325mg up to 4x/day as needed, #120 for 30 days, for fill 08/19/23 do not take Ambien within 4 hours of Mobridge and Gabapentin- Continue Tizanidine 4mg up to 3x/day as needed, refills in pharmacy- Continue Gabapentin 300mg as prescribed by outside provider- Follow up with Francisco Javier Carlisle CNP 1 month, in CLINIC 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, lumbar region Giving encouragement to exercise Related to Body mass index [BMI] 34.0-34.9, adult - Follow up with [facility] physician regarding blood pressure management Related [...] L3-4 and L4-5 - Refill and continue Mobridge 5-325mg up to 4x/day as needed. Refill today do not take Ambien within 4 hours of Mobridge and Gabapentin- Continue Tizanidine 4mg up to 3x/day as needed. Refill sent today.- Continue Gabapentin 300mg as prescribed by outside provider- Follow up with a nurse practitioner or physician assistant chief nursing officer in 1 month, in clinic 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, lumbar region - Follow up as sched uled for repeat transforaminal lumbar epidural steroid injection at left L3-4 and L4-5 on 07/11/23Call daily for cancellations - Refill and continue Mobridge 5-325mg up to 4x/day as needed for fill on 06/19/23 do not take Ambien within 4 hours of Mobridge and Gabapentin- Continue Tizanidine 4mg up to 3x/day as needed. No refill needed today - Continue Gabapentin 300mg as prescribed by outside provider- Follow up with a nurse practitioner or physician assistant chief nursing officer in 1 month, telehealth ok Related to [...] left L3-4 and L4-5- Refill and continue Mobridge 5-325mg up to 4x/day as needed for fill on 05/31/23 do not take Ambien within 4 hours of Mobridge and Gabapentin- Continue Tizanidine 4mg up to [...] disorders w radiculopathy, lumbar region - Refill and continu e Mobridge 5-325mg up to 4x/day as needed with #60 for 15 day supply for fill on 05/03/23 do not take Ambien within 4 hours of Mobridge and Gabapentin- Continue Tizanidine 4mg up to 3x/day as needed. Refill waiting in pharmacy- Continue Gabapentin 300mg as prescribed by outside provider- Follow up with nurse practitioner as scheduled[facility] [place] [facility] 05/18/23 Related to Pain in left hip - Consider left SI joint injecti on Related to Sacroiliitis Giving encouragement to exercise Related to Body mass index [BMI] 35.0-35.9, adult -Follow up in clinic to discuss results from today's injection Related to Pain in left hip -Same Related to Osteo arthritis of hip, unspecified - Keep left hip join t injection on 04/06/23- Refill and continue Mobridge 5-325mg up to 4x/day as needed for fill on 03/29/23 do not take Ambien within 4 hours of Mobridge and Gabapentin- Continue Tizanidine 4mg up to 3x/day as needed. Refill waiting in pharmacy- Continue Gabapentin 300mg as prescribed by outside provider- Keep scheduled CT of pelvis on 04/02/23- Follow up with nurse practitioner or PA in 4 weeks, [place] [facility] Related to Pain in left hip - Consider left SI j oint injection pending left hip joint injection Related to Sacroiliitis Giving encouragement to exercise Related to Body mass index [BMI] 35.0-35.9, adult - Consider left SI j oint injection pending left hip joint injection- Follow up with Nurse Practitioner after imaging completed, telehealth ok Related to Sacroiliitis - Refill and continu e Mobridge 5-325mg up to 4x/day as needed for fill on 02/08/23 do not take Ambien within 4 hours of Mobridge and Gabapentin- Refill and continue Tizanidine 4mg [...] up in 2-4 weeks with a Physicians System Auditor or Nurse Practitioner Related to Pain in left hip - Refill and continu e Mobridge 5-325mg up to 4x/day as needed for fill on 01/09/23 do not take Ambien within 4 hours of Mobridge and Gabapentin- Continue Tizanidine 4mg up to [...] lumbar region - Refill and continu e Mobridge 5-325mg up to 4x/day as needed. Fill on 12/10/22 do not take Ambien within 4 hours of Mobridge and Gabapentin- Continue Tizanidine 4mg up to [...] Body mass index [BMI] 36.0-36.9, adult - Complete [facility]- Consider Intrathecal Pain Pump in the future if the injections are not helpful- Refill and continue Mobridge 5-325mg up to 4x/day as needed. Fill on 10/10/22 do not take Ambien within 4 hours of Mobridge and Gabapentin- Continue Tizanidine 4mg up to 3x/day as needed- Complete lumbar medial branch block *if initial injection provides relief, will move forwards with confirmatory injections and radiofrequency ablation*- Follow up in 4 weeks, telehealth ok Related to Radiculopathy, lumbar region Same plan of care as statement for above diagnosis, no changes Related to Pain in left hip Giving [...] sedation, please make sure to bring a livery car driver with you on the day of your procedure. No food 6-8 hrs prior to injections* The risks and benefits of the procedure will be reviewed with the physician on the day of the procedure. Related to Low back pain Same plan of care as statement for above diagnosis, no changes Related to Pain in left hip - Schedule annual [facility] evar- Can schedule this via Telehealth- Consider Intrathecal Pain Pump in the future if the injections are not helpful- Refill and continue Mobridge 5-325mg up to 4x/day as needed. Fill on 10/11/22 do not take Ambien within 4 hours of Mobridge and Gabapentin- Continue Tizanidine 4mg up to 3x/day as needed- Urine provided and Opioid Agreement signed in clinic today- Follow up in 4 weeks, telehealth ok Related to Radiculopathy, lumbar region Lifestyle education regarding di et Related to Body mass index [BMI] 36.0-36.9, adult Hypertension education Related t o Essential (primary) hypertension same Related to Pain in left hip -Follow up in clinic to discuss results from today's injection Related to Osteoarthritis of hip, unspecified - Consider Intrathec al Pain Pump in the future if the injections are not helpful- Refill and continue Mobridge 5-325mg up to 4x/day as needed. Fill on 09/11/22 do not take Ambien within 4 hours of Mobridge and Gabapentin- Continue Tizanidine 4mg up to 3x/day as needed- Follow up in 4 weeks IN CLINIC Related to Radiculopathy, lumbar region - Schedule left hip radiofrequency ablation upon [...] injections are not helpful- Refill and continue Mobridge 5-325mg up to 4x/day as needed. Fill on 08/12/22 do not take Ambien within 4 hours of Mobridge and Gabapentin- Continue Tizanidine 4mg up to [...] injections are not helpful- Refill and continue Mobridge 5-325mg up to 4x/day as needed. Fill on 07/13/22 do not take Ambien within 4 hours of Mobridge and Gabapentin- Continue Tizanidine 4mg up to 3x/day as needed-Follow up in 4 weeks; Telehealth OK Related to Radiculopathy, lumbar region - Keep scheduled oni t for left hip nerve block on 08/10/22- Consider left hip radiofrequency ablation if the injection provides you with good pain relief Related to Pain in left hip - Keep scheduled oni t for sacroiliac joint injection on 07/15/22 Related to Sacroiliitis Lifestyle education regarding di et Related to Body mass index [BMI] 36.0-36.9, adult - Schedule bilateral Transforaminal Lumbar Epidural Steroid Injection at the L5/S1 levels- This has been approved and you can schedule anytime- Consider Intrathecal Pain Pump in the future if the injections are not helpful- Refill and continue Mobridge 5-325mg up to 4x/day as needed. Fill on 06/13/22 do not take Ambien within 4 hours of Mobridge and Gabapentin- Refill and continue Tizanidine 4mg [...] hip - Keep scheduled oni t for sacroiliac joint injection on 06/14/22 Related to Sacroiliitis Lifestyle education regarding di et Related to Body mass index [BMI] 36.0-36.9, adult - Schedule bilateral Transforaminal Lumbar Epidural Steroid Injection at the L5/S1 levels upon insurance approval, ordered today- Consider Intrathecal Pain Pump in the future if the injections are not helpful- Refill and continue Mobridge 5-325mg up to 4x/day as needed. Fill on 05/14/22 do not take Ambien within 4 hours of Mobridge and Gabapentin- Continue Tizanidine 4mg up to 3x/day as needed- Continue Gabapentin as prescribed by outside provider [facility]ero can take over this script in the future when needed.-Follow up in 4 weeks in [facility] Related to Radiculopathy, lumbar region - Schedule left hip nerve block- Consider left hip radiofrequency ablation if the injection provides you with good pain relief Related to Pain in left hip - Keep scheduled oni t for sacroiliac joint injection on 06/14/22 Related to Sacroiliitis Lifestyle education regarding di et Related to Body mass index [BMI] 37.0-37.9, adult Follow up in the [facility] [...] injections are not helpful- Refill and continue Mobridge 5-325mg up to 4x/day as needed. Fill on 04/14/22 do not take Ambien within 4 hours of Mobridge and Gabapentin- Refill and continue Tizanidine 4mg [...] mass index [BMI] 35.0-35.9, adult - Consider Intrathec al Pain Pump in the future if the injections are not helpful- Go to [email or web address] Look under Treatments and find Targeted Drug Delivery to read up on the Intrathecal Pain Pump- Refill and continue Mobridge 5-325mg up to 4x/day as needed. Fill on 03/15/22 do not take Ambien within 4 hours of Mobridge and Gabapentin- Continue Tizanidine 4mg up to [...] Pain in right shoulder -Refill and continue Mobridge 5-325mg up to 4x/day as needed. Fill on 02/13/22 do not take Ambien within 4 hours of Mobridge and Gabapentin- Refill and continue Tizanidine 4mg [...] step Related to Pain in right shoulder Lifestyle [...] Pain in left hip -Refill and continue Mobridge 5-325mg up to 4x/day as needed. Fill on 01/14/22 do not take Ambien within 4 hours of Mobridge and Gabapentin- Continue Tizanidine 4mg up to [...] right shoulder - Follow up in the [facility] as scheduledDiscuss suprascapular RFA Related to Pain in right shoulder Lifestyle education regarding di et Related to Body mass index [BMI] 35.0-35.9, adult -Schedule right shou lder Suprascapular Nerve Block pending insurance approval-Consider right shoulder suprascapular radiofrequency ablation as next step Related to Pain in right shoulder -Refill and continue Mobridge 5-325mg up to 4x/day as needed. Fill on 12/15/21 do not take Ambien within 4 hours of Mobridge and Gabapentin- Continue Tizanidine 4mg up to [...] index [BMI] 35.0-35.9, adult -Refill and continue Mobridge 5-325mg up to 4x/day as needed. Fill on 11/15/21 do not take Ambien within 4 hours of Mobridge and Gabapentin- Continue Tizanidine 4mg up to 3x/day as needed. 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 North about Belbuca- Refill and continue Mobridge 5-325mg, increased to 4x/day - Will order bilateral SI joint injection - Schedule physical therapy - Follow up with [facility] in one month 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, lumbar region Order bilateral hip X-ray at [facility] Related to Pain in left hip -Refill and continue Mobridge 5/325mg up to 3x/day as needed, for fill on 07/13/21-Refill and continue Tizanidine 4mg as prescribed -Schedule sacroiliac joint steroid injection once it is OK with acquisitions assistant-Schedule annual physical therapy evaluation-Follow up in 4 weeks via telehealth Related to Other intervertebral disc degeneration, lumbar region Lifestyle education regarding di et Related to Body mass index [BMI] 37.0-37.9, adult Same plan of care as statement for above diagnosis, no changes 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 Lifestyle education regarding di et Related to Body mass index [BMI] 37.0-37.9, adult Same plan of care as statement for above diagnosis, no changes Related to Pain in left hip Same plan of care as statement for above diagnosis, no changes 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, lumbosacr region -Continue Tizanidine as prescribed-Prescribe Mobridge 5mg up to 3x/day-Discuss possible injections in the future with Marine [employer] -Follow up with provider in 4 weeks via telehealth 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, lumbar region Lifestyle education regarding di et [...] for above diagnosis, no changes Related to senior care (current) use of opiate analgesic Follow up [...] steroid injection after lumbar epidural steroid injection-Continue Mobridge 5mg up to 3x/day as needed with [...] as prescribed, for fill today-Refill and continue Mobridge 5-325mg, for fill today-Refill and continue Belbuca 750mcg, for fill on 01/08-Continue MiraLax as needed for constipation -Schedule Lumbar Epidural Steroid injection at L3-4-Follow up in one month 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, lumbar region -Continue Tizanidine 4mg as prescribed-Refill and continue Belbuca 750mcg as prescribed -Refill and continue Mobridge [id number] orthopedics [facility] to [facility]-Follow up in 2 weeks via telehealth, or in person if needing to discuss work and related paperwork Related to Pain in right shoulder -Schedule Cervical E pidurals Steroid Injection Related to Cervicalgia Same plan of care as statement for above diagnosis, no changes Related to Pain in right arm -Reschedule Lumbar E pidural Steroid Injection at L3-4 The risks and benefits of the procedure will be reviewed with the physician on the day of the procedure. Related to Other intervertebral disc degeneration, lumbar region -Schedule previously ordered cervical epidural steroid injection when needed The risks and benefits of the procedure will be reviewed with the physician on the day of the procedure. 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, lumbar region -Refill Mobridge 5-325m g up to 2x/day-Refill Tizanidine 4mg-Refill [...] Related to Pain in left hip -Refill Mobridge 5-325m g, 2x/day, #70 for one month [...] on 09/03-Ordered Lumbar Epidural Steroid Injection at A0-7-[facility] Tizanidine 4mg -Refill Mobridge 5-325mg up to 3x/day, #70 for one month-Refill and increase Belbuca 450mcg 2x/day-Follow up in one month via telehealth 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, lumbar region -Schedule repeat estefani ateral SI joint injections if sufficient pain relief is achieved Related to Pain in right hip -Continue with SI quentin int injections on 08/09-Continue Mobridge 5-325mg up to 3x/day, cut back when [...] above diagnosis, no changes 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 - refill Mobridge 5-325 mg, up to 3x/day for fill [...] no changes Related to Radiculopathy, lumbar region - Refill Mobridge 5-325 mg, up to 3x/day for fill [...] stenosis, lumbar region with neurogenic claudication -Refill Mobridge 5-325m g, up to 3x/day-Continue Tizanidine-Schedule BL [...] Spinal stenosis, lumbar region with neurogenic claudication - Refer to orthopedi c surgeon at [facility] for arthroscopic surgery consult and evaluation- Use ibuprofen and Tylenol - Ice and rest shoulder Related to Pain in right shoulder - Refill and continu e Mobridge 5-325 take 1-3 tablets/day, #70 for 30 days for fill today- Refill and continue Tizanidine as prescribed- Refer to PT for annual assessment - Order/Schedule initial lumbar MBB- Follow up in one month in clinic 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, lumbar region Same plan of care as statement for above diagnosis, no changes Related to Low back pain - In one weeks if pa in has not improved, schedule LMBB- I at L2, 3, 4, 5 levels as previously ordered. If successful will proceed with LMBB-C and LRFA. - Schedule to continue with Physical therapy - Refill pain medication today with no changes #70 tablets for a month. - Return to the clinic in 4 weeks. 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
== END 2023-12-25 08:08 | disposition home or self-care (01) ==
PROVIDERS: PCP Internal Medicine; Visit Provider Internal Medicine
DX: I10 Essential (primary) hypertension (principal); I50.9 Heart failure, unspecified
CPT/HCPCS: 80053; 83880

== ENCOUNTER 2024-03-04 08:32 | Outpatient (CLI) | payer MEDICARE, BC, SELFPAY | END 2024-03-04 08:33 | disposition home or self-care (01) | PROVIDERS: PCP Internal Medicine; Visit Provider Internal Medicine | DX: I50.9 Heart failure, unspecified (principal) | CPT/HCPCS: 80053 ==

== ENCOUNTER 2024-07-17 13:31 | Outpatient (CLI) | payer MEDICARE, BC, SELFPAY | END 2024-07-17 13:32 | disposition home or self-care (01) | LOC: NFLDREF 13:32 | PROVIDERS: PCP Internal Medicine; Visit Provider Internal Medicine | DX: I25.5 Ischemic cardiomyopathy (principal) | CPT/HCPCS: 80048 ==

== ENCOUNTER 2024-07-22 11:36 | Outpatient (CLI) | payer MEDICARE, BC, SELFPAY | END 2024-07-22 11:37 | disposition home or self-care (01) | PROVIDERS: PCP Internal Medicine; Visit Provider Internal Medicine | DX: I50.22 Chronic systolic (congestive) heart failure (principal); I51.3 Intracardiac thrombosis, not elsewhere classified; Z79.01 Long term (current) use of anticoagulants | CPT/HCPCS: 80048; 83880; 85610 ==

== ENCOUNTER 2024-08-13 13:53 | Outpatient (CLI) | payer MEDICARE, BC, SELFPAY | END 2024-08-13 13:54 | disposition home or self-care (01) | LOC: NFLDREF 13:53 | PROVIDERS: PCP Internal Medicine; Visit Provider Internal Medicine | DX: I50.9 Heart failure, unspecified (principal) | CPT/HCPCS: 80048 ==

== ENCOUNTER 2024-09-10 09:35 | Outpatient (CLI) | payer MEDICARE, BC, SELFPAY | END 2024-09-10 09:36 | disposition home or self-care (01) | PROVIDERS: PCP Internal Medicine; Visit Provider Internal Medicine | DX: L89.321 Pressure ulcer of left buttock, stage 1 (principal); I51.3 Intracardiac thrombosis, not elsewhere classified; I50.9 Heart failure, unspecified | CPT/HCPCS: 80048; 85610 ==

== ENCOUNTER 2024-11-02 15:08 | Emergency (ER) | payer MEDICARE, BC, SELFPAY ==
--- OUTSIDE RECORDS SUMMARY | 2019-05-07 04:01 | XMS_ITS | Continuity of Care Document ---
Author Organization [facility] Address [address] [address] [place] [address] Phone Care Team Providers Care Product Safety Associate Name Role Phone Brady Villela MD Unavailable Unavailable Allergies, Adverse Reactions, Alerts Substance Reaction Status Criticality No Known allergies Medications Medication Instructions Dosage Effective Dates (start - stop) Status Comments Nexium 40 mg Cap Take one tablet by mouth daily - Active Glucophage 850 mg Tab Take two tablets b y mouth daily - Active Amaryl 4 mg Tab twice a day - Active fluoxetine 40 mg Cap Take 1 tablet by mo uth daily - Active Wellbutrin SR 150 mg Tab Take one tablet by mouth two times per day - Active Aspirin Low Dose 81 mg Tab, Delayed Release Take 1 tablet by mouth daily - Active flaxseed oil 1,000 mg Cap Use as directed - Active Ambien 10 mg Tab Take 1 tablet by emerita th daily - Active Diovan 160 mg Tab t tablet a day - Act tomer Procedures Procedure Date Ugi Endo; Dx W/wo Collec Specm 08 Advance Directives Directive Yes / No Effective Date File Name No Information Encounters Encounter Description Practice Location Reason(s) For Visit Diagnoses Date Provider Providers Copied on Encounter [facility], [address] [address], [place], [place], [id number], tel:[phone] [facility] No Information 0 Tika Abreu. [address] [facility] [address], [place], [place], [id number] , [place]. tel:[phone] [facility], [address] [address], [place], [place], [id number], [place] tel:[phone] Renny [facility] Gastroesophageal RefluxHiatal Hernia 8 Go MD [place]. [address] [facility], [facility] [address], [place], [place], [id number] , [place]. tel:[phone] Family History Family Member Type Diagnosis Age At Onset No Information Payers Payer name Insurance type Covered republican ID Authoriza tion(s) No Information Social History Type Description Quantity Date Captured Comments Sex Male Smoking Status No Information Chief Complaint And Reason For Visit No Information Reason For Referral Reason For Referral No Information History Of Present Illness Encounter Date Complaint History Of Prese nt Illness No Information Functional Status Date Functional Assessmen t No Information Instructions Date Instruction Additional Infor mation No Information Assessments Type Assessment Date No Information Patient Care Teams Name Effective Dates (start - stop) Status Members No Information
--- OUTSIDE RECORDS SUMMARY | 2019-05-07 04:01 | XMS_ITS | Continuity of Care Document ---
Author Organization [facility] Address [address] [address] [place] [address] Phone Care Team Providers Care Control Clerk Food And Beverage Name Role Phone Brady Villela MD Unavailable [...] Encounter [facility], [address] [address], [place], [place], [id number], tel:[phone] [facility] No Information 0 Tika Abreu. [address] [facility] [address], [place], [place], [id number] , [place]. tel:[phone] [facility], [address] [address], [place], [place], [id number], [place] tel:[phone] Renny [facility] Gastroesophageal RefluxHiatal Hernia 8 Go MD [place]. [address] [facility], [facility] [address], [place], [place], [id number] , [place]. tel:[phone] Family History Family Member Type Diagnosis Age At Onset No Information Payers Payer name Insurance type Covered green party ID Authoriza tion(s) No Information Social History [...]
--- OUTSIDE RECORDS SUMMARY | 2021-04-21 11:17 | XMS_ITS | Continuity of Care Document ---
Author Organization [facility] Address [address] [facility] [place] [address] Phone Care Team Providers Care Documentation Lead Name Role Phone Will Mauro JANSEN Unavailable Unavailabl e Allergies, Adverse Reactions, Alerts Substance Reaction Status Criticality MITE EXTRACT Active No Information lamotrigine Active No Information lisinopril Active No Information Medications Medication Instructions Dosage Effective Dates (start - stop) Status Comments hydrocodone 10 mg-acetaminophen 325 mg tablet take 1 - 2 tablet by ORAL route every 4 - 6 hours max 3/day 1-2 tablet - Active amoxicillin 500 mg capsule take 1 capsule by oral route every 8 hours 500 MG - Active Basaglar KwikPen U-100 Insulin 100 unit/mL (3 mL) subcutaneous inject by subcutaneous route as per insulin protocol 0.00 - Active Mydayis 50 mg capsule extended release 24 hr take 1 capsule by oral route every day in the morning upon awakening 50 MG - Active amitriptyline 25 mg tablet take 1 tablet by oral route every day at bedtime 25 MG - Active Cymbalta 20 mg capsule,delayed release take 1 capsule by oral route 2 times every day - Active hydroxyzine HCl 25 mg tablet take 1 tablet by oral route 3 times every day as needed 25 MG - Active Maxalt 10 mg tablet take 1 tablet by oral route once, may repeat at 2 hour intervals; do not exceed 30 mg in 24 hours 10 MG - Active metformin 1,000 mg tablet take 1 tablet by oral route 2 times every day with morning and evening meals 1000 MG - Active zolpidem ER 12.5 mg tablet,extended release,multiphase take 1 tablet by oral route every day at bedtime 12.5 MG - Active gabapentin 300 mg capsule take 3 Capsule by oral route 3 times every day 900 MG - Active metoprolol succinate ER 50 mg tablet,extended release 24 hr take 1 tablet by oral route every day 50 MG - Active losartan 50 mg tablet take 1 tablet by oral route every day 50 MG - Active Procedures Procedure Date OFFICE/OUTPATIENT VISIT, EST Drug test def 22+ classes Drug Urine Toxology With Chromatography Ketorolac tromethamine inj OFFICE/OUTPATIENT VISIT, EST INJECT TRIGGER POINTS, =/> 3 Kenalog Triamcinolone acetonide inj Injection, bupivicaine hydro OFFICE/OUTPATIENT VISIT, EST OFFICE/OUTPATIENT VISIT, EST Drug test def 22+ classes Drug Urine Toxology With Chromatography OFFICE/OUTPATIENT VISIT, EST OFFICE/OUTPATIENT VISIT, EST Lumbar Roll THERAPEUTIC EXERCISES PT EVALUATION NEUROMUSCULAR REEDUCATION OFFICE/OUTPATIENT VISIT, NEW Advance Directives Directive Yes / No Effective Date File Name No Information Encounters Encounter Description Practice Location Reason(s) For Visit Diagnoses Date Provider Providers Copied on Encounter [facility], [address] [place] [address], [id number] , [place] tel:[phone] [facility] No Information 2 Waqar Wade. [address] [place], [place], [id number], [place]. tel:[phone] OFFICE/OUTPA TIENT VISIT, EST [facility], [address] [place], [place], [id number] , [place] tel:[phone] [facility] right shoulder pain (chief complaint) CervicalgiaPain in right shoulderLow back painLong term (current) use of opiate analgesic b 9 Gretta Oviedo [place], [address] [place], [address], [place]. tel:[phone] Referring Provider: Mauro Coleman, [address] [place], [place] [address], [address] . tel:[phone] OFFICE/OUTPA TIENT VISIT, [facility], [address] [place] [address], [id number] , [place] [phone] [facility] right shoulder pain (chief complaint) CervicalgiaPain in right shoulderLong term (current) use of opiate analgesicLow back painEncounter for therapeutic drug level monitoring 9 Glynnvern Wu. [place], [address] [place], [address], [place]. tel:[phone] Referring Provider: Mauro Coleman, [address] [place] [address] [place], [address] . tel:[phone] [facility], [address] [place] [address], [id number] , [place] tel: [phone] [facility] Myalgia, other site 9 Glynn Bryce. [place], [address] [place], [address], [place]. tel:[phone] Referring Provider: Mauro Coleman, [address] [place] [address] [place], [address] . tel:[phone] OFFICE/OUTPA TIENT VISIT, [facility], [address] [place] [address], [id number] , [place] [phone] [facility] right shoulder pain (chief complaint) CervicalgiaPain in right shoulderLong term (current) use of opiate analgesicLow back pain 9 Gretta Wu. [place], [address] [place], [address], [place]. tel:[phone] Referring Provider: Mauro Coleman, [address] [place], [place] [address], [address] . tel:[phone] OFFICE/OUTPA TIENT VISIT, [facility], [address] [place] [address], [id number] , [place] tel:[phone] [facility] right shoulder pain (chief complaint) CervicalgiaPain in right shoulderLong term (current) use of opiate analgesic 9 Glynn Dan. [place], [address] [place], [address], [place]. [phone] Referring Provider: Mauro Coleman, [address] [place], [address] . tel:[phone] [facility], [address] [place] [address], [id number] , [place] tel: [phone] [facility] No Information 8 Glynn [place], [address] [place], [address], [place]. tel:[phone] OFFICE/OUTPA TIENT VISIT, EST [facility], [address] [place] [address], [id number] , [place] tel: [phone] [facility] right shoulder pain (chief complaint) CervicalgiaPain in right shoulderLong term (current) use of opiate analgesic 8 Gretta Oviedo [place], [address] [place], [address], [place]. tel:[phone] [facility], [address] [place] [address], [id number] , [place] tel: [phone] [facility] right shoulder pain (chief complaint) No Information 8 Gretta Wu. [place], [address] [place], [address], [place]. tel:[phone] OFFICE/OUTPA TIENT VISIT, EST [facility], [address] [place] [address], [id number] , [place] tel:[phone] [facility] neck pain (chief complaint) low back pain (chief complaint) CervicalgiaPain in joint involving shoulder region 4 Cruz Moreira. [address] [place], [place], [id number], [place]. tel:[phone] Referring Provider: Mauro Coleman, [address] [place] [address] [place], [address] . tel:[phone] [facility], [address] [place] [address] [place], [id number] , tel:[phone] [facility] neck pain (chief complaint) back pain (chief complaint) No Information 4 No Information Referring Provider: Mauro Coleman, [address] [place] [address] [place], [address] . tel:[phone] OFFICE/OUTPA TIENT VISIT, [facility], [address] [place] [address], [id number] , tel:[phone] [facility] right neck pain (chief complaint) low back pain (chief complaint) CervicalgiaPain in joint involving shoulder regionLumbago Cruz Moreira. [address] [place] [address], [id number], . tel:[phone] Referring Provider: Mauro Coleman, [address] [place] [address] [place], [address] . tel:[phone] Family History Family Member Type Diagnosis Age At Onset Father Problem (finding) chronic pain Mother Problem (finding) Back surgery Payers Payer name Insurance type Covered democrat ID Authoriza tion(s) [facility] [id number] Social History Type Description Quantity Date Captured Comments Sex Male Smoking Status No Information Chief Complaint And Reason For Visit No Information Reason For Referral Reason For Referral No Information Plan Of Treatment Date Type Action Status Future Order: Lab Order COMPLIAN CE DRUG ANALYSIS, URINE, WITH MED REPORT ([id number]), Ordered on: Ordered Future Order: Lab Order COMPLIAN CE DRUG ANALYSIS, URINE, WITH MED REPORT ([id number]), Ordered on: Ordered History Of Present Illness Encounter Date Complaint History Of Prese nt Illness right shoulder pain Duration: ch ronic. It occurs constantly and is worsening. Location: right low back and L posterior thigh. The pain is aggravated by bending, climbing (and descending) stairs, lifting, movement, sitting, walking, standing, housework and prolonged positioning. The pain is relieved by pain/RX meds and lying down. right shoulder pain (comments) A ndrpavan is here today for a followup and medication refill. He presents without medications today. Reports his pain has worsened since his last OV, noting he recently went to the ER for exacerbated acute back pain. 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 Expresses frustration regarding his worsening pain today as it has inhibited his ability to work and partake in daily activities. Is concerned with losing his job d/t missing work multiple days in the past two weeks for increased pain. Details how his pain is the worst it has ever been and severely inhibits his QOL. Inquires about whether he should seek surgical consult, or other measures to better manage his pain. Patient is not accompanied today and has no further questions or other concerns. right shoulder pain Duration: ch ronic. It occurs constantly and is worsening. Location: right shoulder. The pain is aching, burning, sharp and tingling. The pain is aggravated by bending, climbing (and descending) stairs, movement, sitting, walking, standing, housework, prolonged positioning and twisting. The pain is relieved by heat, ice, pain/RX meds, rest, changing positions and lying down. right shoulder pain (comments) A ndrpavan is here for follow-up and medication refills. Patient presents without 10/325mg Hereford - due out today. Reports at least 30-50% relief from the medication.States he is not doing well today as his pain is elevated. Last reported dose was taken on 04/13/18. TPI on 04/05/18 has worsened his pain and has limited his ability to walk. Expresses frustration as this is causing him to miss work. Notes that he completed an MRI of his upper back this AM. Open to Toradol injection today as suggested by provider, however he inquires what he can do for his pain throughout the day when it gets this severe.Mauro is not accompanied by anyone today and has no further questions or concerns. right shoulder pain Duration: ch ronic. It occurs constantly and is worsening. Location: right shoulder. The pain is aching, burning, sharp and tingling. There are no aggravating factors. There are no relieving factors. right shoulder pain (comments) A ndrpavan is here for follow-up and medication refills. Patient has 10/325mg Hereford #0 remaining today - due out today. Reports at least 40% relief from the medication.States that in addition of his right shoulder pain he has been experiencing increased lower back pain. He participates in PT regularly for this, however he finds that his pain score is elevated up to 8/10 most days. Notes this has started to affect his work. D/t this he admits to self escalation of his Hereford and took his last dose last night. Mauro is not accompanied by anyone today and has no further questions or concerns. right shoulder pain (comments) A ndrpavan returns for initial follow up regarding right shoulder pain.Initial right shoulder injections with [place] offered significant relief with improvement of ROM. Most recent injections have worsened his patterson. He would be interested in repeating with [facility]. Also c/o neck pain that is stable at this time.No other concerns today. right shoulder pain Duration: ch ronic. Severity level is 2-7. It occurs constantly and is stable. Location: right shoulder. The pain is aching, burning, sharp and tingling. The pain is aggravated by bending, lifting, movement, sitting, standing, prolonged positioning and housework. The pain is relieved by pain/RX meds, rest, stretching, changing positions and walking. right shoulder pain (comments) A ndrpavan is here for initial consult for right shoulder pain, referred by Dr. Shahida Sutton, RADIOLOGY DIRECTOR. His shoulder pain began decades ago and has gradually gotten worse with extensive computer use. He also reports R upper back and neck pain. States his pain has significantly reduced his quality of life. Underwent PT at [facility] in 2017-- not helpful. States he believes PT may have aggravated his pain. Tried right shoulder joint injection. Reports several ESIs--somewhat helpful. Reports most recent REBECCA was done a few months ago, however states he has Diabetes so he needs to be careful with steroid injections. Reports previous MRI at [facility]. Currently managed on hydrocodone 5-325mg QID, amitriptyline 25mg QHS, Gabapentin 300mg TID. Has also trialed Lyrica, Topamax, and Cymbalta. States nothing relieves his R shoulder pain, but the medications are helpful. Mauro is interested in medication management and is open to other tx options. Today he would like [facility] to assume management of pain care. right shoulder pain Duration: ch ronic. Severity level is 5. It occurs constantly. Location: right low back, left hand and neck. The pain is burning, stabbing and pins and needles. The pain is aggravated by changing positions, housework, movement, sitting and twisting. The pain is relieved by ice, pain/RX meds, lying down, standing and walking. right shoulder pain (comments) Taylor joshi is here for initial consult for right shoulder pain, referred by . His shoulder pain began decades ago and has gradually gotten worse with extensive computer use. He also reports R upper back and neck painUnderwent PT at [facility] in [facility]-- not helpful. Tried right shoulder joint injection. Reports previous MRI at [facility]. Has taken gabapentin, lyrica, Topamax, Cymbalta, and amitriptyline for additional pain relief. Mauro is interested in PT and is open to other tx options and would like [facility] to assume management of pain care. right shoulder pain Duration: ch ronic. Location: right shoulder. Functional Status Date Functional Assessmen t No Information Instructions Date Instruction Additional Infor brandon Reviewed medications Continue current medication Oswestry Score Depression Screen New medication is prescribed Reviewed medications Assessments Type Assessment Date No Information Patient Care Teams Name Effective Dates (start - stop) Status Members No Information
--- OUTSIDE RECORDS SUMMARY | 2021-04-21 11:17 | XMS_ITS | Continuity of Care Document ---
Author Organization [facility] criss Address [address] [place] [address] Phone Care Team Providers Care Sewer Name Role Phone Will Mauro JANSEN Unavailable [...] Diagnoses Date Provider Providers Copied on Encounter [facility], [address] [place] [address], [id number] , [place] tel:[phone] [facility] No Information 2 Waqar Wade. [address] [place], [place], [id number], [place]. tel:[phone] OFFICE/OUTPA TIENT VISIT, EST [facility], [address] [place], [place], [id number] , [place] tel:[phone] [facility] right shoulder pain (chief complaint) CervicalgiaPain in right shoulderLow back painLong term (current) use of opiate analgesic b 9 Gretta Oviedo [place], [address] [place], [address], [place]. tel:[phone] Referring Provider: Mauro Coleman, [address] [place], [place] [address], [address] . tel:[phone] OFFICE/OUTPA TIENT VISIT, [facility], [address] [place] [address], [id number] , [place] [phone] [facility] right shoulder pain (chief complaint) CervicalgiaPain in right shoulderLong term (current) use of opiate analgesicLow back painEncounter for therapeutic drug level monitoring 9 Glynnvern Wu. [place], [address] [place], [address], [place]. tel:[phone] Referring Provider: Mauro Coleman, [address] [place] [address] [place], [address] . tel:[phone] [facility], [address] [place] [address], [id number] , [place] [phone] [facility] Myalgia, other site 9 Glynn Bryce. [place], [address] [place], [address], [place]. tel:[phone] Referring Provider: Mauro Coleman, [address] [place] [address] [place], [address] . tel:[phone] OFFICE/OUTPA TIENT VISIT, [facility], [address] [place] [address], [id number] , [place] [phone] [facility] right shoulder pain (chief complaint) CervicalgiaPain in right shoulderLong term (current) use of opiate analgesicLow back pain 9 Gretta Wu. [place], [address] [place], [address], [place]. tel:[phone] Referring Provider: Mauro Coleman, [address] [place], [place] [address], [address] . tel:[phone] OFFICE/OUTPA TIENT VISIT, [facility], [address] [place] [address], [id number] , [place] tel:[phone] [facility] right shoulder pain (chief complaint) CervicalgiaPain in right shoulderLong term (current) use of opiate analgesic 9 Glynn Dan. [place], [address] [place], [address], [place]. [phone] Referring Provider: Mauro Coleman, [address] [place], [address] . tel:[phone] [facility], [address] [place] [address], [id number] , [place] tel: [phone] [facility] No Information 8 Glynn [place], [address] [place], [address], [place]. tel:[phone] OFFICE/OUTPA TIENT VISIT, EST [facility], [address] [place] [address], [id number] , [place] tel: [phone] [facility] right shoulder pain (chief complaint) CervicalgiaPain in right shoulderLong term (current) use of opiate analgesic 8 Gretta Oviedo [place], [address] [place], [address], [place]. tel:[phone] [facility], [address] [place] [address], [id number] , [place] tel: [phone] [facility] right shoulder pain (chief complaint) No Information 8 Gretta Wu. [place], [address] [place], [address], [place]. tel:[phone] OFFICE/OUTPA TIENT VISIT, EST [facility], [address] [place] [address], [id number] , [place] tel:[phone] [facility] neck pain (chief complaint) low back pain (chief complaint) CervicalgiaPain in joint involving shoulder region 4 Cruz Moreira. [address] [place], [place], [id number], [place]. tel:[phone] Referring Provider: Mauro Coleman, [address] [place] [address] [place], [address] . tel:[phone] [facility], [address] [place] [address] [place], [id number] , tel:[phone] [facility] [place] neck pain (chief complaint) back pain (chief complaint) No Information 4 No Information Referring Provider: Mauro Coleman, [address] [place] [address] [place], [address] . tel:[phone] OFFICE/OUTPA TIENT VISIT, NEW [facility], [address] [place] [address], [id number] , tel:[phone] [facility] [place] right neck pain (chief complaint) low back pain (chief complaint) CervicalgiaPain in joint involving shoulder regionLumbago Cruz Moreira. [address] [place] [address], [id number], . tel:[phone] Referring Provider: Mauro Coleman, [address] [place], [place] [address], [address] . tel:[phone] Family History Family Member Type Diagnosis Age At Onset Father Problem (finding) chronic pain Mother Problem (finding) Back surgery Payers Payer name Insurance type Covered green party ID Authoriza tijody(s) [facility] [id number] Social History Type Description Quantity Date Captured Comments Sex Male Smoking Status No Information Chief Complaint And Reason For Visit No Information Reason For Referral Reason For Referral No Information Plan Of Treatment Date Type Action Status Future Order: Lab Order COMPLIAN CE DRUG ANALYSIS, URINE, WITH MED REPORT ([id number]), Ordered on: Ordered Future Order: Lab Order COMPLIAN CE DRUG ANALYSIS, URINE, WITH MED REPORT ([id number]), Ordered on: Ordered History Of Present Illness Encounter Date Complaint History Of Prese nt Illness right shoulder pain (comments) A ndrew is here today for a followup and medication refill. He presents without medications today. Reports his pain has worsened since his last OV, noting he recently went to the ER for exacerbated acute back pain. 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 Expresses frustration regarding his worsening pain [...] lying down. right shoulder pain (comments) A ndrew is here for follow-up and medication refills. Patient presents without 10/325mg [place] - due out today. Reports at least [...] lying down. right shoulder pain (comments) A ndrew is here for follow-up and medication refills. Patient has 10/325mg [place] #0 remaining today - due out today. [...] he admits to self escalation of his [place] and took his last dose last night. Mauro is not accompanied by anyone today and has no further questions or concerns. right shoulder pain Duration: ch ronic. It occurs constantly and is worsening. Location: right shoulder. The pain is aching, burning, sharp and tingling. There are no aggravating factors. There are no relieving factors. right shoulder pain Duration: ch ronic. Severity level is 2-7. It occurs constantly and is stable. Location: right shoulder. The pain is aching, burning, sharp and tingling. The pain is aggravated by bending, lifting, movement, sitting, standing, prolonged positioning and housework. The pain is relieved by pain/RX meds, rest, stretching, changing positions and walking. right shoulder pain (comments) A ndrpavan returns for initial follow up regarding right shoulder pain.Initial right shoulder injections with [place] offered significant relief with improvement of ROM. Most recent injections have worsened his patterson. He would be interested in repeating with [facility]. Also c/o neck pain that is stable [...] standing and walking. right shoulder pain (comments) A ndrpavan is here for initial consult for right shoulder pain, referred by Dr. Shahida Sutton, [employer]. His shoulder pain began decades ago and has gradually gotten worse with extensive computer use. He also reports R upper back and neck pain. States his pain has significantly reduced his quality of life. Underwent PT at [facility] in 2017-- not helpful. States he believes PT may have aggravated his pain. Tried right shoulder joint injection. Reports several ESIs--somewhat helpful. Reports most recent REBECCA was done a few months ago, however states he has Diabetes so he needs to be careful with steroid injections. Reports previous MRI at [facility]. Currently managed on hydrocodone 5-325mg QID, amitriptyline 25mg QHS, Gabapentin 300mg TID. Has also trialed Lyrica, Topamax, and Cymbalta. States nothing relieves his R shoulder pain, but the medications are helpful. Mauro is interested in medication management and is open to other tx options. Today he would like [facility] to assume management of pain care. right shoulder pain Duration: ch ronic. Location: right shoulder. right shoulder pain (comments) Taylor joshi is here for initial consult for right shoulder pain, referred by . His shoulder pain began decades ago and has gradually gotten worse with extensive computer use. He also reports R upper back and neck painUnderwent PT at [facility] in 2017-- not helpful. Tried right shoulder joint injection. Reports previous MRI at [facility]. Has taken gabapentin, lyrica, Topamax, Cymbalta, and amitriptyline for additional pain relief. Mauro is interested in PT and is open to other tx options and would like [facility] to assume management of pain care. Functional Status Date Functional Assessmen t No Information Instructions Date Instruction Additional Infor mation Continue current medication Reviewed medications Reviewed medications New medication is prescribed Depression Screen Oswestry Score Assessments Type Assessment Date No Information Patient Care Teams Name Effective Dates (start - stop) Status Members No Information
--- OUTSIDE RECORDS SUMMARY | 2024-10-01 06:15 | XMS_ITS | Continuity of Care Document ---
Author Organization [facility] Address [address] [place] [address] Phone Care Team Providers Care Putty Tinter Maker Name Role Phone Alex Pemberton PA-C Unavailable Unavailable Allergies, Adverse Reactions, Alerts Substance Reaction Status Criticality metoclopramide Active No Informatio n lamotrigine Active No Information lisinopril Active No Information Medications Medication Instructions Dosage Effective Dates (start - stop) Status Comments tizanidine 4 mg tablet TAKE 1 TO 2 TABLETS BY MOUTH EVERY 8 HOURS NEEDED FOR MUSCLE SPASM - Active lorazepam 1 mg tablet take 1 tablet by oral route 3 times every day as needed 1 MG - Active WARFARIN SODIUM (unknown strength) take 1 tablet by oral route every day Not Available - Active torsemide 20 mg tablet take 2.5 tablet by oral route 2 times every day 50 MG - Active Jardiance 10 mg tablet [...] hydroxyzine HCl 10 mg tablet - Active oxycodone-acetam inophen 7.5 mg-325 mg tablet take 1 tablet by oral route every 4-6 hours as needed, max 5 tabs per day - No Longer Active M51.16 chronic pain, tizanidine 4 mg tablet take 1 tablet by oral route every 6 - 8 hours as needed not to exceed 3 doses in 24 hours 4 MG - No Longer Active oxycodone-acetam inophen 7.5 mg-325 mg tablet take 1 tablet by oral route every 4-6 hours as needed, max 5 tabs per day - No Longer Active chronic pain, okay to fill / for use 09/05 due to holiday Procedures Procedure Date Est Pt Eval Telehealth Inj Anes Epidur; Lumb/sac 1 Le Trans Epid Lumbosac each addl Inj Anes Epidur; Lumb/sac-ea A 25 Inj Anes Epidur; Lumb/sac 1 Le 25 Est Pt Eval Telehealth Verified No Separate Anesthesia 025 Est Pt Eval Moderate Est Pt Eval Telehealth Est Pt Eval Telehealth Est Pt Eval Telehealth Est Pt Eval Moderate Toxicology Test Group B Est Pt Eval 10 Min Telehealth Psychotherapy, 30 minutes with patient T elephone Only [facility] ASSMT/REASSESSMENT Audio Est Pt Eval Telehealth Est Pt Eval Telehealth Est Pt Eval Telehealth Est Pt Eval Telehealth Est Pt Eval Moderate Toxicology Test Group B Est Pt Eval Telehealth Inject, Spine, Lumb/sacr, Epi/subarc w/ img Guid Inject, Spine, Lumb/sacr, Epi/subarc w/ img Guid Verified No Separate Anesthesia 024 Est Pt Eval Telehealth Destrct; Other Peripheral Nerv 24 CC Control For Rem/Void Of Mutually Excl [...] No Separate Anesthesia Inj Anes Agent; Suprascapular 4 Ultrason Guidan [...] Lumb/sac-1st Level Se Inj Anes Facet Jt; Lumb/sac-2nd Level Se Inj Anes Facet Jt; Lumb/sac-2nd Level Se Inj Anes Facet Jt; Lumb/sac-3rd Level Se Inj Anes Facet Jt; Lumb/sac-3rd Level Se Inj Anes Facet Jt; Lumb/sac-2nd Level Se Inj Anes Facet Jt; Lumb/sac-1st Level Se [...] Anesthesia Est Pt Eval 25 Min Telehealth 3 Inj Anes Agent Other Peripher Fluoro Guidance - NonSpine Change Control for Diagnosis(s) Other Periph Nerve Block Fluoro Needle NonSpine Verified No Separate Anesthesia 023 Est Pt Eval 25 Min Telehealth 3 Inj Anes Epidur; Lumb/sac-ea A 23 Inj Anes Epidur; Lumb/sac 1 Le 23 Inj Anes Epidur; Lumb/sac 1 Le 23 Trans Epid Lumbosac each addl 3 Verified [...] Telehealth 2 Psychotherapy, 30 minutes with patient Jared Est Pt Eval 25 Min Toxicology Test Group B Psychotherapy, 30 minutes with patient Cyril No Show Visit Fee No Show Visit [...] Telehealth Inj Anes Facet Jt; Lumb/sac-3rd Level Ma Inj Anes Facet Jt; Lumb/sac-1st Level Ma Inj Anes Facet Jt; Lumb/sac-2nd Level Ma Bupivicaine 30ml Change Control for [employer] Inj Anes Facet Jt; Lumb/sac-1st Level Ma Inj Anes Facet Jt; Lumb/sac-2nd Level Ma Inj Anes Facet Jt; Lumb/sac-3rd Level Ma [...] Yes / No Effective Date File Name Intubation Not Answered N/A N/A Antibiotics Not Answered N/A N/A IV Fluid Support Not Answered N/A N/A Tube Feed Not Answered N/A N/A Other Directive No N/A N/A WARNING:The information contained in this [...] Diagnoses Date Provider Providers Copied on Encounter Est Pt Eval Telehealth MITZY Valentin, [address], [place], [place], [address], [place] tel:[phone] [facility] mid back pain (chief complaint) Intervertebral disc disorders w radiculopathy, lumbar regionPain in left hip 5 Nilay Johnson. [address], [place], [place], [address], [place]. tel:[phone] Jasen Miryam CHATMAN.Referri ng Provider: Shahida Sutton SENIOR CASE MANAGER, [address] [facility], [place], [address]. tel:[phone] [facility], [address], [place], [place], [address], [place] tel:[phone] [facility] No Information 5 Michelle De Luna. [address], [place], [address], [place]. tel:[phone] Referring Provider: Annamarie Martinez , [address], [place], [address]. tel:[phone] [facility], [address], [place], [address], [place] tel:[phone] [facility] lower back pain (chief complaint) Radiculopathy, lumbar regionRadiculopath y, lumbar region 5 [facility]. [address], [place], [place], [address], [place]. tel:[phone] Referring Provider: Annamarie Martinez , [address], [place], [address]. tel:[phone] Est Pt Eval Telehealth [facility], [address], [place], [place], [address], [place] tel:[phone] [facility] mid back pain (chief complaint) Intervertebral disc disorders w radiculopathy, lumbar regionPain in left hip 5 Moualee Paulette. [address], [place], [address], [place]. tel:[phone] Jasen Drevlow DO.Referri ng Provider: Shahida Sutton CNP, [address] [place], [address]. tel:[phone] [facility], [address], [place], [place], [address], [place] tel:[phone] [facility] No Information 5 Michelle De Luna. [address], [place], [address], [place]. tel:[phone] Referring Provider: Shahida Sutton CNP, [address] [place], [address]. tel:[phone] Est Pt Eval Moderate [facility], [facility], [address], [place], [place], [address], [place] tel:[phone] [facility] mid back pain (chief complaint) Intervertebral disc disorders w radiculopathy, lumbar regionBody mass index (BMI) 36.0-36.9, adultPain in left hip 5 Nilay Johnson. [address], [place], [place], [address], [place]. tel:[phone] Jasen Drevlow DO.Referri ng Provider: Shahida Sutton CNP, [address] [place], [address]. tel:[phone] Est Pt Eval Telehealth [facility], [facility], [address], [place], [place], [address], [place] tel:[phone] [facility] mid back pain (chief complaint) Intervertebral disc disorders w radiculopathy, lumbar region 5 Nilay Johnson. [address] , [place], [place], [address], [place]. tel:[phone] Jasen Drevlow DO.Referri ng Provider: Shahida Sutton CNP, [address] [place], [address]. tel:[phone] [facility], [facility], [address], [place], [place], [address], [place] tel:[phone] [facility] mid back pain (chief complaint) Intervertebral disc disorders w radiculopathy, lumbar regionBody mass index (BMI) 30.0-30.9, adult 5 Person Francisco Javier. [address] , [place] [address], [place], [address], [place]. tel:[phone] Jasen Drevlow DO.Referri ng Provider: Shahida Sutton CNP, [address] [place], [address]. tel:[phone] Est Pt Eval Telehealth [facility], [facility], [address], [place], [place], [address], [place] tel:[phone] [facility] mid back pain (chief complaint) Intervertebral disc disorders w radiculopathy, lumbar regionPain in left hipLeft renal tumor of uncertain behaviorBody mass index (BMI) 30.0-30.9, adult 5 Person Francisco Javier. [address], [place] [address], [place], [address], [place]. tel:[phone] Jasen Drevlow DO.Referri ng Provider: Shahida Sutton CNP, [address] [place], [address]. tel:[phone] Est Pt Eval Telehealth [facility], [facility], [address], [place], [place], [address], [place] tel:[phone] [facility] mid back pain (chief complaint) Intervertebral disc disorders w radiculopathy, lumbar regionPain in left hipLeft renal tumor of uncertain behavior May-0 5 She Qiying. [address], [place], [address], [place]. tel:[phone] Jasen Drevlow DO.Referri ng Provider: Shahida Sutton CNP, [address] [place], [address]. tel:[phone] Est Pt Eval [facility], [address], [place], [place], [address], [place] tel:[phone] [facility] lower back pain (chief complaint) neck pain (chief complaint) Intervertebral disc disorders w radiculopathy, lumbar regionPain in left hipLeft renal tumor of uncertain behaviorBody mass index (BMI) 30.0-30.9, adult 5 Ketola Nueces. [address] , [facility] [address], [place], [address], [place]. tel:[phone] Jasen Drevlow DO.Referri ng Provider: Shahida Sutton CNP, [address] [place], [address]. tel:[phone] [facility], [address], [place], [place], [address], [place] tel:[phone] [facility] No Information 5 Ketola Aydee. [address], [place], [place], [address], [place]. tel:[phone] Referring Provider: Shahida Sutton CNP, [address] [place], [address]. tel:[phone] Est Pt Eval 10 Min Telehealth REINIER Valentin, [address], [place], [place], [address], [place] tel:[phone] [facility] lower back pain (chief complaint) Intervertebral disc disorders w radiculopathy, lumbar regionPain in left hipLeft renal tumor of uncertain behaviorBody mass index (BMI) 31.0-31.9, adult 5 Person Francisco Javier. [address], [place], [place], [address], [place]. tel:[phone] Jasen Witt DO.Referri ng Provider: Shahida Sutton CNP, [address] [place], [address]. tel:[phone] Psychotherap y, 30 minutes with patient Telephone Only RE[facility] Valentin, [address], [place], [place], [address], [place] tel:[phone] [facility] Pain disorder with related psychological factors 5 Diogo Georges. [address], [place], [address], [place]. tel:[phone] Referring Provider: Shahida Sutton CNP, [address] [place], [address]. tel:[phone] [facility], [address], [place], [place], [address], [place] tel:[phone] [facility] Radiculopathy, lumbar regionPain disorder with related psychological factors 5 Diogo Georges. [address], [place], [address], [place]. tel:[phone] Referring Provider: Shahida Sutton CNP, [address] [place], [address]. tel:[phone] Est Pt Eval Telehealth [facility], [facility], [address], [place], [place], [address], [place] tel:[phone] [facility] lower back pain (chief complaint) Intervertebral disc disorders w radiculopathy, lumbar regionPain in left hipOsteoarthritis of hip, unspecifiedLeft renal tumor of uncertain behavior 5 Roly Velazquez. [address], [place], [address], [place]. tel:[phone] Jasen Drevlow DO.Referri ng Provider: Shahida Sutton CNP, [address] [place], [address]. tel:[phone] Est Pt Eval Telehealth [facility], [facility], [address], [place], [place], [address], [place] tel:[phone] [facility] lower back pain (chief complaint) Intervertebral disc disorders w radiculopathy, lumbar regionPain in left hipOsteoarthritis of hip, unspecifiedLeft renal tumor of uncertain behavior 4 Keyshawn Bazzi. [address], [place], [address], [place]. tel:[phone] Jasen Drevlow DO.Referri ng Provider: Shahida Sutton CNP, [address] [place], [address]. tel:[phone] Est Pt Eval Telehealth [facility], [facility], [address], [place], [place], [address], [place] tel:[phone] [facility] lower back pain (chief complaint) Pain in left hipIntervertebral disc disorders w radiculopathy, lumbar region 4 Orestes Mcintyre. [address], [place], [place], [address], [place]. tel:[phone] Jasen Drevlow DO.Referri ng Provider: Shahida Sutton CNP, [address] [place], [address]. tel:[phone] Est Pt Eval Telehealth [facility], [facility], [address], [place], [place], [address], [place] tel:[phone] [facility] lower back pain (chief complaint) Intervertebral disc disorders w radiculopathy, lumbar regionPain in left hipBody mass index (BMI) 31.0-31.9, adult Oct- 4 Person Francisco Javier. [address], [place] [address], [place], [address], [place]. tel:[phone] Jasen Drevlow DO.Referri ng Provider: Shahida Sutton CNP, [address] [place], [address]. tel:[phone] Est Pt Eval Moderate [facility], [facility], [address], [place], [place], [address], [place] tel:[phone] [facility] lower back pain (chief complaint) hip pain (chief complaint) Body mass index (BMI) 31.0-31.9, adultPain in left hipIntervertebral disc disorders w radiculopathy, lumbar regionPrimary osteoarthritis of right shoulder Sep-2 4 Person Francisco Javier. [address], [place] [address], [place], [address], [place]. tel:[phone] Jasen Drevlow DO.Referri ng Provider: Shahida Sutton CNP, [address] [place], [address]. tel:[phone] [facility], [facility], [address], [place], [place], [address], [place] tel:[phone] [facility] No Information Sep-2 4 Person Francisco Javier. [address], [place], [place], [address], [place]. tel:[phone] Referring Provider: Shahida Sutton CNP, [address] [place], [address]. tel:[phone] Est Pt Eval Telehealth [facility], [facility], [address], [place], [place], [address], [place] tel:[phone] [facility] lower back pain (chief complaint) Body mass index (BMI) 32.0-32.9, adultIntervertebra l disc disorders w radiculopathy, lumbar regionPain in left hipPrimary osteoarthritis of right shoulder Nov- 4 Person Francisco Javier. [address], [place], [place], [address], [place]. tel:[phone] Jasen Witt DO.Referri ng Provider: Shahida Sutton CNP, [address] [place], [address]. tel:[phone] [facility], [address], [place], [place], [address], [place] tel:[phone] [facility] No Information 4 Xin Quinones. [address], [place], [address], [place]. tel:[phone] Referring Provider: Joni Rosas, [address], [place], [address]. tel:[phone] [facility], [address], [place], [address], [place] tel:[phone] [facility] lower back pain (chief complaint) Radiculopathy, lumbar region 4 [facility]. [address], [place], [place], [address], [place]. tel:[phone] Jasen Drevlow DO.Referri ng Provider: Joni Rosas, [address] [facility] [address], [place], [address]. tel:[phone] [facility], [address], [place], [place], [address], [place] tel:[phone] [facility] No Information 4 Xin Quinones. [address], [place], [address], [place]. tel:[phone] Referring Provider: Joni Rosas, [address] [facility] [address], [place], [address]. tel:[phone] Est Pt Eval Telehealth [facility], [facility], [address], [place], [place], [address], [place] tel:[phone] [facility] lower back pain (chief complaint) Primary osteoarthritis of right shoulderPain in left hipIntervertebral disc disorders w radiculopathy, lumbar regionBody mass index (BMI) 32.0-32.9, adult 4 Nilay Johnson. [address], [place], [place], [address], [place]. tel:[phone] Jasen Drevlow DO.Referri ng Provider: Shahida Sutton [facility], [address] [facility], [place], [address]. tel:[phone] [facility], [address], [place], [address], [place] tel:[phone] [facility] shoulder pain (chief complaint) Pain in right shoulderNeuralgia and neuritis, unspecified 4 [facility]. [address], [place], [place], [address], [place]. tel:[phone] Jasen Drevlow DO.Referri ng Provider: Joni Rosalescarmenza Kvng, [address], [place], [address]. tel:[phone] [facility], [facility], [address], [place], [place], [address], [place] tel:[phone] [facility] No Information 4 Xin Joni. [address], [place], [address], [place]. tel:[phone] Referring Provider: Joni Rosalescarmenza Rosas, [address], [place], [address]. tel:[phone] [facility], [facility], [address], [place], [place], [address], [place] tel:[phone] [facility] No Information 4 Xin Joni. [address], [place], [address], [place]. tel:[phone] Referring Provider: Joni Rosalescarmenza Kvng, [address], [place], [address]. tel:[phone] Est Pt Eval Moderate [facility], [facility], [address], [place], [place], [address], [place] tel:[phone] [facility] lower back pain (chief complaint) Intervertebral disc disorders w radiculopathy, lumbar regionPain in left hipPrimary osteoarthritis of right shoulderBody mass index (BMI) 32.0-32.9, adult 4 iNlay Johnson. [address], [place], [place], [address], [place]. tel:[phone] Jasenshantel Matosvlow DO.Referri ng Provider: Shahida Sutton [facility], [address] [facility], [place], [address]. tel:[phone] [facility], [address], [place], [place], [address], [place] tel:[phone] [facility] No Information 4 Person Francisco Javier. [address] [place] [address], [place], [address], [place]. tel:[phone] Referring Provider: Shahida Sutton CNP, [address] [place], [address]. tel:[phone] Est Pt Eval Telehealth [facility], [address], [place], [place], [address], [place] tel:[phone] [facility] lower back pain (chief complaint) Intervertebral disc disorders w radiculopathy, lumbar regionPrimary osteoarthritis of right shoulderPain in left hipBody mass index (BMI) 34.0-34.9, adult 4 Person Francisco Javier. [address] [place] [address], [place], [address], [place]. tel:[phone] Jasen Witt DO.Referri ng Provider: Shahida Sutton CNP, [address] [place], [address]. tel:[phone] [facility], [address], [place], [place], [address], [place] tel:[phone] [facility] No Information 4 Person Francisco Javier. [address], [place], [place], [address], [place]. tel:[phone] Referring Provider: Shahida Sutton CNP, [address] [place], [address]. tel:[phone] [facility], [address], [place], [address], [place] tel:[phone] [facility] [place] lower back pain (chief complaint) hip pain (chief complaint) leg pain (chief complaint) Radiculopathy, lumbar regionElevated blood-pressure reading without diagnosis of hypertension 4 [facility]. [address], [place], [place], [address], [place]. tel:[phone] Jasen Witt DO.Referri ng Provider: Dominik Mays, [address], [place], [address]. tel:[phone] [facility], [facility], [address], [place], [place], [address], [place] tel:[phone] [facility] No Information 4 Davon Lehman. [address], [place], [address], [place]. tel:[phone] Referring Provider: Dominik Mays, [address], [place], [address]. tel:[phone] [facility], [facility], [address], [place], [place], [address], [place] tel:[phone] [facility] No Information 4 Davon Lehman. [address], [place], [address], [place]. tel:[phone] Referring Provider: Dominik Mays, [address], [place], [address]. tel:[phone] [facility], [address], [place], [address], [place] tel:[phone] [facility] shoulder pain (chief complaint) Pain in right shoulderNeuralgia and neuritis, unspecifiedPain in right shoulderNeuralgia and neuritis, unspecified 4 Xin Quinones. [address], [place], [address], [place]. tel:[phone] Jasen Drevlow DO.Referri ng Provider: Shahida Sutton CNP, [address] [place], [address]. tel:[phone] [facility], [address], [place], [place], [address], [place] tel:[phone] [facility] No Information 4 Xin Quinones. [address], [place], [address], [place]. tel:[phone] Referring Provider: Joni Rosas, [address], [place], [address]. tel:[phone] [facility], [address], [place], [place], [address], [place] tel:[phone] [facility] No Information 4 Xin Quinones. [address], [place], [address], [place]. tel:[phone] Referring Provider: Joni Rosas, [address], [place], [address]. tel:[phone] Est Pt Eval Telehealth [facility], [address], [place], [place], [address], [place] tel:[phone] [facility] lower back pain (chief complaint) Primary osteoarthritis of right shoulderInterverte bral disc disorders w radiculopathy, lumbar regionPain in left hip 4 Person Francisco Javier. [address], [place], [place], [address], [place]. tel:[phone] Jasen Drevlow DO.Referri ng Provider: Shahida Sutton CNP, [address] [place], [address]. tel:[phone] [facility], [address], [place], [place], [address], [place] tel:[phone] [facility] No Information 4 Roly Velazquez. [address], [place], [address], [place]. tel:[phone] Referring Provider: Shahida Sutton CNP, [address] [place], [address]. tel:[phone] Est Pt Eval Telehealth [facility], [facility], [address] [address], [place], [place], [address], [place] tel:[phone] [facility] left hip pain (chief complaint) back pain (chief complaint) Primary osteoarthritis of right shoulderPain in left hipIntervertebral disc disorders w radiculopathy, lumbar regionBody mass index (BMI) 34.0-34.9, adult 4 She Qijohnson. [address] , [facility] [address], [place], [address], [place]. tel:[phone] Jasen Miryam CHATMAN.Referri ng Provider: Shahida Sutton CNP, [address] [place], [address]. tel:[phone] Est Pt Eval Moderate Homero, [facility], [address], [place], [place], [address], [place] tel:[phone] [facility] back pain (chief complaint) bilateral shoulder pain (chief complaint) Pain in left hipIntervertebral disc disorders w radiculopathy, lumbar regionPrimary osteoarthritis of right shoulderBody mass index (BMI) 33.0-33.9, adult 4 Gaston Alice. [address] [place], [place], [address], [place]. tel:[phone] Jasen Drevlow DO.Referri ng Provider: Shahida Sutton CNP, [address] [place], [address]. tel:[phone] Homero [facility], [address], [place], [place], [address], [place] tel:[phone] Homero [facility] No Information 4 Gsaton Alice. [address] [place], [address], [place]. tel:[phone] Referring Provider: Shahida Sutton CNP, [address] [place], [address]. tel:[phone] Est Pt Eval Telehealth Homero [facility], [address], [place], [place], [address], [place] tel:[phone] [facility] left hip pain (chief complaint) Body mass index (BMI) 35.0-35.9, adultPain in left hipSacroiliitisInt ervertebral disc disorders w radiculopathy, lumbar region Apr- 4 She Qiying. [address], [place], [address], [place]. tel:[phone] Jasen Drevlow DO.Referri ng Provider: Shahida Sutton CNP, [address] [place], [address]. tel:[phone] Homero, [facility], [address], [place], [place], [address], [place] tel:[phone] [facility] left hip pain (chief complaint) Pain in left hipOsteoarthritis of hip, unspecifiedPain in left hipOsteoarthritis of hip, unspecified Feb-0 4 Foster Dominik. [address], [place], [address], [place]. tel:[phone] Jasen Drevlow DO.Referri ng Provider: Shahida Sutton CNP, [address] [place], [address]. tel:[phone] Est Pt Eval Telehealth Homero, [facility], [address], [place], [place], [address], [place] tel:[phone] [facility] back pain (chief complaint) Neck Pain (chief complaint) Body mass index (BMI) 35.0-35.9, adultPain in left hipSacroiliitis 4 She Qiying. [address], [address], [place], [address], [place]. tel:[phone] Jasen Drevlow DO.Referri ng Provider: Shahida Sutton CNP, [address] [place], [address]. tel:[phone] Est Pt Eval Moderate Homero, [facility], [address], [place], [place], [address], [place] tel:[phone] [facility] left hip pain (chief complaint) Pain in left hipSacroiliitisBod y mass index (BMI) 35.0-35.9, adult 3 Gaston Alice. [address] [place], [place], [address], [place]. tel:[phone] Jasen Drevlow DO.Referri ng Provider: Shahida Sutton CNP, [address] [place], [address]. tel:[phone] Homero, [facility], [address], [place], [place], [address], [place] tel:[phone] Homero [facility] No Information 3 Gaston Alice. [address] [place], [address], [place]. tel:[phone] Referring Provider: Shahida Sutton SENIOR CASE MANAGER, [address] [facility], [place], [address]. tel:[phone] [facility], [address], [address], [place], [address], [place] tel:[phone] [facility] left hip pain (chief complaint) Pain in left hipNeuralgia and neuritis, unspecified 3 [facility]. [address], [place], [place], [address], [place]. tel:[phone] Referring Provider: Joni Lauren S, [address], [place], [address]. tel:[phone] Homero [facility], [address], [place], [place], [address], [place] tel:[phone] [facility] No Information 3 Michelle De Luna. [address], [place], [address], [place]. tel:[phone] Referring Provider: Annamarie Martinez , [address], [place], [address]. tel:[phone] Homero [facility], [address], [place], [place], [address], [place] tel:[phone] [facility] No Information 3 Michelle Annamarie. [address], [place], [address], [place]. tel:[phone] Referring Provider: Annamarie Martinez , [address], [place], [address]. tel:[phone] Est Pt Eval Telehealth Homero [facility], [address], [place], [place], [address], [place] tel:[phone] [facility] left hip pain (chief complaint) Pain in left hipBody mass index (BMI) 35.0-35.9, adult Oct- 3 Gaston Alice. [address] [place], [address], [place]. tel:[phone] Referring Provider: Shahida Sutton [facility], [address] [facility], [place], [address]. tel:[phone] Homero, [facility], [address], [place], [place], [address], [place] tel:[phone] [facility] No Information Sep-2 3 Xin Quinones. [address], [place], [address], [place]. tel:[phone] Referring Provider: Joni Rosas, [address], [place], [address]. tel:[phone] [facility], [address], [address], [place], [address], [place] tel:[phone] [facility] back pain (chief complaint) Spondylosis w/o myelopathy or radiculopathy, lumbar regionSacroiliitis Spondylosis w/o myelopathy or radiculopathy, lumbar region Sep-2 3 [facility] Surgical [facility]. [address], [place], [place], [address], [place]. tel:[phone] Referring Provider: Joni Rosas, [address], [place], [address]. tel:[phone] Homero, [facility], [address], [place], [place], [address], [place] tel:[phone] [facility] No Information Sep-2 3 Xni Quinones. [address], [place], [address], [place]. tel:[phone] Referring Provider: Joni Rosas, [address], [place], [address]. tel:[phone] Est Pt Eval Telehealth [facility], [facility], [address], [place], [place], [address], [place] tel:[phone] [facility] back pain (chief complaint) Radiculopathy, lumbar regionPain in left hipBody mass index (BMI) 36.0-36.9, adult Sep-2 3 Stacie Jeongjohnson. [address] , [address], [place], [address], [place]. tel:[phone] Referring Provider: Shahida Sutton CNP, [address] [place], [address]. tel:[phone] Psychiatric Diagnostic Evaluation Telephone Only Homero [facility], [address] [facility] [address], [place], [place], [address], [place] tel:[phone] [facility] Pain disorder with related psychological factorsMajor depressive disorder, recurrent, mild Sep-1 3 Lopez Moreira. [address] , [facility] [address], [place], [address], [place]. tel:[phone] Referring Provider: Shahida Sutton CNP, [address] [place], [address]. tel:[phone] Est Pt Eval Telehealth Homero [facility], [address], [place], [place], [address], [place] tel:[phone] [facility] back pain (chief complaint) Body mass index (BMI) 36.0-36.9, adultRadiculopathy , lumbar regionPain in left hip Sep-0 3 Roly Velazquez. [address], [address], [place], [address], [place]. tel:[phone] Referring Provider: Shahida Sutton CNP, [address] [place], [address]. tel:[phone] Est Pt Eval Moderate Homero, [facility], [address], [place], [place], [address], [place] tel:[phone] [facility] back pain (chief complaint) Radiculopathy, lumbar regionPain in left hipBody mass index (BMI) 36.0-36.9, adultEssential (primary) hypertensionLow back pain 3 Ketola Nueces. [address], [address], [place], [place], [address], [place]. tel:[phone] Referring Provider: Shahida Sutton CNP, [address] [place], [address]. tel:[phone] Homero, [facility], [address], [place], [place], [address], [place] tel:[phone] [facility] No Information 3 Ketola Nueces. [address], [address], [place], [place], [address], [place]. tel:[phone] Referring Provider: Shahida Sutton CNP, [address] [place], [address]. tel:[phone] Homero, [facility], [address], [place], [place], [address], [place] tel:[phone] [facility] Surgical [facility] No Information 3 Davon Lehman. [address], [place], [address], [place]. tel:[phone] Referring Provider: Dominik Mays, [address], [place], [address]. tel:[phone] [facility], [address], [address], [place], [address], [place] tel:[phone] [facility] left hip pain (chief complaint) Osteoarthritis of hip, unspecifiedPain in left hipOsteoarthritis of hip, unspecifiedPain in left hip 3 [facility]. [address], [place], [place], [address], [place]. tel:[phone] Referring Provider: Dominik Mays, [address], [place], [address]. tel:[phone] Homero [facility], [address], [place], [place], [address], [place] tel:[phone] [facility] No Information 3 Davon Lehman. [address], [place], [address], [place]. tel:[phone] Referring Provider: Dominik Mays, [address], [place], [address]. tel:[phone] Homero [facility], [address], [place], [place], [address], [place] tel:[phone] [facility] Osteoarthritis of hip, unspecified 3 Maria Isabel Al. [address], [place], [place], [address], [place]. tel:[phone] Referring Provider: Shahida Sutton SENIOR CASE MANAGER, [address] [facility], [place], [address]. tel:[phone] Est Pt Eval 25 Min Telehealth REINIER Valentin, [address], [place], [place], [address], [place] tel:[phone] [facility] back pain (chief complaint) Radiculopathy, lumbar regionPain in left hipSacroiliitisBod y mass index (BMI) 36.0-36.9, adult 3 Ketola Nueces. [address], [place], [place], [address], [place]. tel:[phone] Referring Provider: Shahida Sutton [facility], [address] [facility], [place], [address]. tel:[phone] Homero [facility], [address], [place], [place], [address], [place] tel:[phone] [facility] No Information 3 Michelle De Luna. [address], [place], [address], [place]. tel:[phone] Referring Provider: Annamarie Martinez , [address], [place], [address]. tel:[phone] [facility], [address], [address], [place], [address], [place] tel:[phone] [facility] left hip pain (chief complaint) Pain in left hipPain in left hipNeuralgia and neuritis, unspecified 3 [facility]. [address], [place], [place], [address], [place]. tel:[phone] Referring Provider: Annamarie Martinez , [address], [place], [address]. tel:[phone] Homeor [facility], [address], [place], [place], [address], [place] tel:[phone] [facility] No Information 3 Michelle De Luna. [address], [place], [address], [place]. tel:[phone] Referring Provider: Annamarie [place] , [address], [place], [address]. tel:[phone] Est Pt Eval 25 Min Telehealth Homero, [facility], [address], [place], [place], [address], [place] tel:[phone] [facility] back pain (chief complaint) Pain in left hipRadiculopathy, lumbar regionSacroiliitis Body mass index (BMI) 36.0-36.9, adult Jean 3 Ketola Aydee. [address], [address], [place], [place], [address], [place]. tel:[phone] Referring Provider: Shahida Sutton [facility], [address] [facility], [place], [address]. tel:[phone] [facility] [place], [address], [address], [place], [address], [place] tel:[phone] [facility] back pain (chief complaint) Radiculopathy, lumbar regionRadiculopath y, lumbar region 3 [facility]. [address], [place], [place], [address], [place]. tel:[phone] Referring Provider: Dominik Mays, [address], [place], [address]. tel:[phone] REINIER Valentin, [address], [place], [place], [address], [place] tel:[phone] [facility] [place] No Information 3 Davon Lehman. [address], [place], [address], [place]. tel:[phone] Referring Provider: Dominik Mays, [address], [place], [address]. tel:[phone] REINIER Valentin, [address], [place], [place], [address], [place] tel:[phone] [facility] [place] No Information 3 Davon Lehman. [address], [place], [address], [place]. tel:[phone] Referring Provider: Dominik Mays, [address], [place], [address]. tel:[phone] MITZY Valentin, [address], [place], [place], [address], [place] tel:[phone] [facility] No Information 3 Davon Lehman. [address], [place], [address], [place]. tel:[phone] Referring Provider: Dominik Mays, [address], [place], [address]. tel:[phone] [facility], [address], [address], [place], [address], [place] tel:[phone] [facility] back pain (chief complaint) SacroiliitisSacroi liitis, not elsewhere classified 3 [facility]. [address], [place], [place], [address], [place]. tel:[phone] Referring Provider: Shahida Sutton SENIOR CASE MANAGER, [address] [facility], [place], [address]. tel:[phone] [facility], [address], [place], [place], [address], [place] tel:[phone] [facility] No Information 3 Davon Lehman. [address], [place], [address], [place]. tel:[phone] Referring Provider: Dominik Mays, [address], [place], [address]. tel:[phone] Est Pt Eval 25 Min Telehealth Homero [facility], [address], [place], [place], [address], [place] tel:[phone] [facility] back pain (chief complaint) Radiculopathy, lumbar regionPain in left hipSacroiliitisBod y mass index (BMI) 36.0-36.9, adult 3 Ketola Aydee. [address], [place], [place], [address], [place]. tel:[phone] Referring Provider: Shahida Sutton CNP, [address] [place], [address]. tel:[phone] [facility], [address], [address], [place], [address], [place] tel:[phone] [facility] No Information 3 [place] Annamarie. [address], [place], [address], [place]. tel:[phone] Referring Provider: Shahida Sutton CNP, [address] [place], [address]. tel:[phone] Homero [facility], [address], [place], [place], [address], [place] tel:[phone] [facility] No Information 3 [place] Annamarie. [address], [place], [address], [place]. tel:[phone] Referring Provider: Shahida Sutton CNP, [address] [place], [address]. tel:[phone] Est Pt Eval 25 Min REINIER Valentin, [address], [place], [place], [address], [place] tel:[phone] [facility] back pain (chief complaint) Radiculopathy, lumbar regionPain in left hipSacroiliitisBod y mass index (BMI) 36.0-36.9, adult Jun- 0 3 Ketola Aydee. [address], [address], [address], [place]. tel:[phone] Referring Provider: Shahida Sutton CNP, [address] [place], [address]. tel:[phone] REINIER Valentin, [address], [address], [place] tel:[phone] Homero [facility] No Information 3 Ketola Aydee. [address], [place] [address], [place], [address], [place]. tel:[phone] Referring Provider: Shahida Sutton CNP, [address] [place], [address]. tel:[phone] Est Pt Eval 25 Min Telehealth Homero [facility], [address], [place], [place], [address], [place] tel:[phone] [facility] back pain (chief complaint) bilateral hip pain (chief complaint) Radiculopathy, lumbar regionPain in left hipSacroiliitisBod y mass index (BMI) 37.0-37.9, adult May- 0 3 Ketola Nue[place]. [address], [address], [address], [place]. tel:[phone] Referring Provider: Shahida Sutton CNP, [address] [place], [address]. tel:[phone] REINIER ValentinC, [address], [place], [place], [address], [place] tel:[phone] [facility] [place] No Information Mar-0 3 Davon Dominik. [address], [place], [address], [place]. tel:[phone] Referring Provider: Dominik Mays, [address], [place], [address]. tel:[phone] [facility], [address], [address], [place], [address], [place] tel:[phone] [facility] back pain (chief complaint) Radiculopathy, lumbar regionRadiculopath y, lumbar region Mar-0 3 [facility]. [address], [place], [place], [address], [place]. tel:[phone] Referring Provider: Shahida Sutton CNP, [address] [place], [address]. tel:[phone] [facility], [address], [place], [place], [address], [place] tel:[phone] [facility] [place] No Information 0 3 Davon Dominik. [address], [place], [address], [place]. tel:[phone] Referring Provider: Dominik Mays, [address], [place], [address]. tel:[phone] [facility] [place], [address], [address], [place], [address], [place] tel:[phone] [facility] left hip pain (chief complaint) Pain in left hipNeuralgia and neuritis, unspecifiedPain in left hip 3 [facility]. [address], [place], [place], [address], [place]. tel:[phone] Referring Provider: Shahida Sutton CNP, [address] [place], [address]. tel:[phone] Homero [facility], [address], [place], [place], [address], [place] tel:[phone] [facility] No Information 3 Kenneth Vance. [address], [place], [place], [address], [place]. tel:[phone] Referring Provider: Rajiv Cooper, [address], [place], [address] . tel:[phone] Homero [facility], [address], [place], [place], [address], [place] tel:[phone] [facility] No Information 3 Kenenth Vance. [address], [address], [place], [place], [address], [place]. tel:[phone] Referring Provider: Shahida Sutton CNP, [address] [place], [address]. tel:[phone] Est Pt Eval 25 Min Telehealth Homero [facility], [address], [place], [place], [address], [place] tel:[phone] [facility] back pain (chief complaint) Body mass index (BMI) 35.0-35.9, adultRadiculopathy , lumbar regionPain in left hipSacroiliitis 3 Ketola [place]. [address], [place], [place], [address], [place]. tel:[phone] Referring Provider: Shahida Sutton CNP, [address] [place], [address]. tel:[phone] Est Pt Eval 25 Min Telehealth [facility], [facility], [address], [place], [place], [address], [place] tel:[phone] [facility] back pain (chief complaint) Radiculopathy, lumbar regionSacroiliitis Pain in left hipPain in right shoulder 3 Ketola [place]. [address], [place] [address], [place], [address], [place]. tel:[phone] Referring Provider: Shahida Sutton CNP, [address] [place], [address]. tel:[phone] Est Pt Eval 25 Min Telehealth [facility], [facility], [address], [place], [place], [address], [place] tel:[phone] [facility] left hip pain (chief complaint) right shoulder pain (chief complaint) Radiculopathy, lumbar regionSacroiliitis Pain in left hipPain in right shoulderBody mass index (BMI) 35.0-35.9, adult 2 Ketola Aydee. [address], [place] [address], [place], [address], [place]. tel:[phone] Referring Provider: Shahida Sutton CNP, [address] [place], [address]. tel:[phone] [facility] [place], [address], [address], [place], [address], [place] tel:[phone] [facility] right shoulder pain (chief complaint) Pain in right shoulderNeuralgia and neuritis, unspecifiedPain in right shoulderNeuralgia and neuritis, unspecified 2 [facility]. [address], [place], [place], [address], [place]. tel:[phone] Referring Provider: Dominik Mays, [address], [place], [address]. tel:[phone] Est Pt Eval 25 Min Homero [facility], [address], [place], [place], [address], [place] tel:[phone] [facility] back pain (chief complaint) Pain in right shoulderPain in left hipRadiculopathy, lumbar regionSacroiliitis Body mass index (BMI) 35.0-35.9, adult 2 [place]. [address], [place] [address], [place], [address], [place]. tel:[phone] Referring Provider: Shahida Sutton CNP, [address] [place], [address]. tel:[phone] Homero [facility], [address], [address], [place] tel:[phone] [facility] No Information 2 Ketola [place]. [address], [place] [address], [place], [address], [place]. tel:[phone] Referring Provider: Shahida Sutton CNP, [address] [place], [address]. tel:[phone] [facility], [address], [place], [address], [place] tel:[phone] [facility] No Information 2 Ketola Nueces. [address], [place] [address], [place], [address], [place]. tel:[phone] Referring Provider: Shahida Sutton CNP, [address] [place], [address]. tel:[phone] [facility], [address], [place], [place], [address], [place] tel:[phone] [facility] No Information 2 Davon Lehman. [address], [place], [address], [place]. tel:[phone] Referring Provider: Dominik Davon, [address], [place], [address]. tel:[phone] Est Pt Eval 25 Min Telehealth [facility], [facility], [address], [place], [place], [address], [place] tel:[phone] [facility] left hip pain (chief complaint) Pain in left hipRadiculopathy, lumbar regionPain in right shoulderBody mass index (BMI) 35.0-35.9, adult Oct- 2 Roly Velazquez. [address], [place], [address], [place]. tel:[phone] Referring Provider: Shahida Sutton CNP, [address] [place], [address]. tel:[phone] Est Pt Eval 25 Min Telehealth [facility], [address], [place], [place], [address], [place] tel:[phone] [facility] right shoulder pain (chief complaint) back pain (chief complaint) Body mass index (BMI) 35.0-35.9, adultRadiculopathy , lumbar regionPain in left hipPain in right shoulder Sep-0 2 She Roderick. [address], [place], [address], [place]. tel:[phone] Referring Provider: Shahida Sutton CNP, [address] [place], [address]. tel:[phone] MITZY Valentin, [address], [place], [place], [address], [place] tel:[phone] [facility] Radiculopathy, lumbar regionPain in left hip 2 Isaac Torres. [address], [facility] , [place], [address], [place]. tel:[phone] Referring Provider: Shahida Sutton CNP, [address] [place], [address]. tel:[phone] REINIER Valentin, [address], [place], [place], [address], [place] tel:[phone] [facility] Radiculopathy, lumbar regionPain in left hip 2 Knox Nataliia. [address], [place], [address], [place]. tel:[phone] Referring Provider: Shahida Sutton CNP, [address] [place], [address]. tel:[phone] Est Pt Eval 25 Min REINIER Valentin, [address], [place], [place], [address], [place] tel:[phone] [facility] back pain (chief complaint) bilateral shoulder pain (chief complaint) Intervertebral disc disorders w radiculopathy, lumbar regionPain in left hipBody mass index (BMI) 35.0-35.9, adult 2 She Roderick. [address], [place], [address], [place]. tel:[phone] Referring Provider: Shahida Sutton CNP, [address] [place], [address]. tel:[phone] MITZY Valentin, [address], [place], [place], [address], [place] tel:[phone] [facility] No Information 2 Stacie Vaughn. [address], [place], [address], [place]. tel:[phone] Referring Provider: Shahida Sutton CNP, [address] [place], [address]. tel:[phone] Psychotherap y, 30 minutes with patient Telephone Only MITZY Valentin, [address], [place], [place], [address], [place] tel:[phone] [facility] Pain disorder with related psychological factorsMajor depressive disorder, recurrent, mild 2 Jesus Sanders. [address], [address], [place]. tel:[phone] Referring Provider: Shahida Sutton CNP, [address] [place], [address]. tel:[phone] MIT[facility] Valentin, [address], [place], [place], [address], [place] tel:[phone] [facility] No Information 2 Adryan Louis. [address], [place], [place], [address], [place]. tel:[phone] Referring Provider: Shahida Sutton CNP, [address] [place], [address]. tel:[phone] Est Pt Eval 25 Min Telehealth MITZ[facility] Valentin, [address], [place], [place], [address], [place] tel:[phone] [facility] left hip pain (chief complaint) Intervertebral disc disorders w radiculopathy, lumbar regionOsteoarthrit is of hip, unspecifiedPain in left hipBody mass index (BMI) 37.0-37.9, adult 2 Maria Isabel Al. [address] [place] [address], [place], [address], [place]. tel:[phone] Referring Provider: Shahida Sutton CNP, [address] [place], [address]. tel:[phone] Psychotherap y, 30 minutes with patient MITZY Valentin, [address], [place], [place], [address], [place] tel:[phone] [facility] Pain disorder with related psychological factors 2 Jesus Sanders. [address], [address], [place]. tel:[phone] Referring Provider: Shahida Sutton CNP, [address] [place], [address]. tel:[phone] Est Pt Eval 25 Min Telehealth MIT[facility] Valent[facility], [address], [place], [place], [address], [place] tel:[phone] [facility] back pain (chief complaint) Intervertebral disc disorders w radiculopathy, lumbar regionPain in left hipPain in left legOsteoarthritis of hip, unspecified 2 Maria Isabel Al. [address], [place], [address], [place]. tel:[phone] Referring Provider: Shahida Sutton CNP, [address] [place], [address]. tel:[phone] Psychotherap y, 30 minutes with patient MITZY Valentin, [address], [place], [place], [address], [place] tel:[phone] [facility] Pain disorder with related psychological factorsMajor depressive disorder, recurrent, mild Aug- 2 Jesus Tommy. [address], [address], [place]. tel:[phone] Referring Provider: Shahida Sutton CNP, [address] [place], [address]. tel:[phone] Est Pt Eval 25 Min REINIER Valentin, [address], [place], [place], [address], [place] tel:[phone] [facility] back pain (chief complaint) Other intervertebral disc degeneration, lumbar regionPain in left hipBody mass index (BMI) 37.0-37.9, adult 2 She Qiying. [address], [place], [address], [place]. tel:[phone] Referring Provider: Shahida Sutton CNP, [address] [place], [address]. tel:[phone] REINIER Valentin, [address], [place], [place], [address], [place] tel:[phone] [facility] No Information 2 She Qiying. [address] , [address], [place], [address], [place]. tel:[phone] Referring Provider: Shahida Sutton CNP, [address] [place], [address]. tel:[phone] Psychotherap y, 30 minutes with patient MITZY Valentin, [address], [place], [place], [address], [place] tel:[phone] [facility] Pain disorder with related psychological factorsMajor depressive disorder, recurrent, mild 2 Jesus Sanders. [address], [address], [place]. tel:[phone] Referring Provider: Shahida Sutton CNP, [address] [place] [address], [address]. tel:[phone] REINIER Valentin, [address], [place], [address], tel:[phone] [facility] No Information 2 Stacie Vaughn. [address] [facility], [address], [address], [place]. tel:[phone] Referring Provider: Shahida Sutton CNP, [address] [place] [address], [facility]. tel:[phone] MITZY Valentin, [address], [place], [address], [place] tel:[phone] [facility] No Information 2 Xin Quinones. [address], [place], [address], [place]. tel:[phone] Referring Provider: Shahida Sutton CNP, [address] [place] [address], [address]. tel:[phone] Psychiatric Diagnostic Evaluation MITZY Valentin, [address], [place], [address], [place] tel:[phone] [facility] Pain disorder with related psychological factorsMajor depressive disorder, recurrent, moderate Jun- 2 Jesus Sanders. [address], [address], [place]. tel:[phone] Referring Provider: Shahida Sutton CNP, [address] [place] [address], [address]. tel:[phone] Est Pt Eval 25 Min [facility], [address], [place], [place], [address], [place] tel:[phone] [facility] back pain (chief complaint) Spondyls w/o myelopathy or radiculopathy, lumbosacr regionPain in left hipLong term (current) use of opiate analgesicBody mass index (BMI) 37.0-37.9, adult Jun- 2 She Qiying. [address], [address], [place], [address], [place]. tel:[phone] Referring Provider: Shahida Sutton CNP, [address] [place], [address]. tel:[phone] Est Pt Eval 25 Min [facility], [address], [place], [place], [address], [place] tel:[phone] [facility] back pain (chief complaint) Spondyls w/o myelopathy or radiculopathy, lumbosacr regionPain in left hipPain in left legLong term (current) use of opiate analgesicBody mass index (BMI) 37.0-37.9, adult 2 She Qiying. [address], [address], [place], [address], [place]. tel:[phone] Referring Provider: Shahida Sutton CNP, [address] [place], [address]. tel:[phone] Est Pt Eval 25 Min [facility], [address], [place], [place], [address], [place] tel:[phone] [facility] back pain (chief complaint) Intervertebral disc disorders w radiculopathy, lumbar regionSpondyls w/o myelopathy or radiculopathy, lumbosacr regionPain in left hipBody mass index (BMI) 37.0-37.9, adult Apr-0 2 Roly Velazquez. [address], [address], [place], [address], [place]. tel:[phone] Referring Provider: Shahida Sutton CNP, [address] [place], [address]. tel:[phone] Est Pt Eval 25 Min [facility], [address], [place], [place], [address], [place] tel:[phone] [facility] back pain (chief complaint) Pain in left hipLong term (current) use of opiate analgesicSpondyls w/o myelopathy or radiculopathy, lumbosacr region 1 She Qiying. [address], [place], [address], [place]. tel:[phone] Referring Provider: Shahida Sutton CNP, [address] [place], [address]. tel:[phone] [facility], [address], [place], [place], [address], [place] tel:[phone] [facility] No Information 1 She Qiying. [address], [place], [address], [place]. tel:[phone] Referring Provider: Shahida Sutton CNP, [address] [place], [address]. tel:[phone] [facility], [address], [address], [place] tel:[phone] [facility] No Information 1 Xin Quinones. [address], [address], [place]. tel:[phone] Referring Provider: Joni Rosas, [address], [place], [address]. tel:[phone] [facility], [address], [place], [address], [place] tel:[phone] [facility] back pain (chief complaint) left leg pain (chief complaint) left hip pain (chief complaint) Radiculopathy, lumbar regionRadiculopath y, lumbar region 1 [facility]. [address], [place], [place], [address], [place]. tel:[phone] Referring Provider: Joni Rosas, [address], [place], [address]. tel:[phone] Est Pt Eval 25 Min [facility], [address], [place], [place], [address], [place] tel:[phone] [facility] back pain (chief complaint) Pain in left hipRadiculopathy, lumbar region 1 She Qiying. [address], [place], [address], [place]. tel:[phone] Referring Provider: Shahida Sutton CNP, [address] [facility], [place], [address]. tel:[phone] Est Pt Eval 25 Min [facility], [address], [place], [place], [address], [place] tel:[phone] [facility] back pain (chief complaint) right shoulder pain (chief complaint) Intervertebral disc disorders w radiculopathy, lumbar regionPain in right shoulder 1 She Qiying. [address], [place], [address], [place]. tel:[phone] Referring Provider: Shahida Sutton CNP, [address] [place], [address]. tel:[phone] Est Pt Eval 25 Min Telehealth RE[facility] Valent[facility], [address], [place], [address], [place] tel:[phone] [facility] right shoulder pain (chief complaint) Pain in right shoulderPain in right armCervicalgiaOthe r intervertebral disc degeneration, lumbar region 1 Gianluca Hsu. [address], [place], [address], [place]. tel:[phone] Referring Provider: Shahida Sutton CNP, [address] [place], [address]. tel:[phone] [facility], [address], [address], [place] tel:[phone] [facility] No Information Sep-3 1 Stayner Joni. [address] [facility] [address], [place], [address], [place]. tel:[phone] Referring Provider: Shahida Sutton CNP, [address] [place], [address]. tel:[phone] [facility], [address], [place], [address], [place] tel:[phone] [facility] No Information Sep-3 1 Stayner Joni. [address] [facility] [address], [place], [address], [place]. tel:[phone] Referring Provider: Shahida Sutton CNP, [address] [place], [address]. tel:[phone] Est Pt Eval 25 Min Telehealth RE[facility]IER Valentin, [address], [place], [place], [address], [place] tel:[phone] [facility] back pain (chief complaint) right shoulder pain (chief complaint) Spondylosis w/o myelopathy or radiculopathy, lumbar regionPain in left legPain in right shoulder Nov- 1 Gianluca Hsu. [address], [place], [address], [place]. tel:[phone] Referring Provider: Shahida Sutton CNP, [address] [place], [address]. tel:[phone] Est Pt Eval 25 Min [facility], [address], [place], [place], [address], [place] tel:[phone] [facility] back pain (chief complaint) Low back painPain in left hipPain in right shoulder 1 Chadwick Mayo. [address], [place], [address], [place]. tel:[phone] Referring Provider: Shahida Sutton CNP, [address] [place], [address]. tel:[phone] [facility], [address], [place], [place], [address], [place] tel:[phone] [facility] No Information 1 Machoka Orina. [address], [place], [address], [place]. tel:[phone] Referring Provider: Shahida Sutton CNP, [address] [place], [address]. tel:[phone] Est Pt Eval 25 Min [facility], [address], [place], [place], [address], [place] tel:[phone] [facility] back pain (chief complaint) Other intervertebral disc degeneration, lumbar region 1 Gianluca Hsu. [address], [place], [address], [place]. tel:[phone] Referring Provider: Shahida Sutton CNP, [address] [place], [address]. tel:[phone] [facility], [facility], [address], [place], [place], [address], [place] tel:[phone] [facility] No Information 1 Maria Isabel Barrera. [address], [place], [place], [address], [place]. tel:[phone] Referring Provider: Bruce Nam, [address], [place], [address] . tel:[phone] [facility], [address], [place], [address], [place] tel:[phone] [facility] back pain (chief complaint) Sacroiliitis, not elsewhere classifiedSacroili itis, not elsewhere classified 1 [facility]. [address], [place], [place], [address], [place]. tel:[phone] Referring Provider: Bruce Nam, [address], [place], [address] . tel:[phone] [facility], [address], [place], [address], [place] tel:[phone] [facility] [place] No Information 1 Kenneth Vance. [address], [place], [place], [address], [place]. tel:[phone] Referring Provider: Shahida Sutton CNP, [address] [place], [address]. tel:[phone] [facility], [address], [place], [place], [address], [place] tel:[phone] [facility] No Information 1 Kenneth Vance. [address], [place], [place], [address], [place]. tel:[phone] Referring Provider: Shahida Sutton CNP, [address] [place], [address]. tel:[phone] Est Pt Eval 25 Min Telehealth [facility], [facility], [address], [place], [place], [address], [place] tel:[phone] [facility] back pain (chief complaint) Intervertebral disc disorders w radiculopathy, lumbar region 1 Gianluca Hsu. [address], [place], [address], [place]. tel:[phone] Referring Provider: Shahida Sutton CNP, [address] [place], [address]. tel:[phone] [facility], [address], [place], [address], [place] tel:[phone] [facility] back pain (chief complaint) Pain in right hipPain in left hipPain in right hipPain in left hip 1 [facility]. [address], [place], [place], [address], [place]. tel:[phone] Referring Provider: Shahida Sutton CNP, [address] [place], [address]. tel:[phone] [facility], [address], [place], [place], [address], [place] tel:[phone] [facility] No Information 1 Xin Quinones. [address], [place], [address], [place]. tel:[phone] Referring Provider: Joni Rosas, [address], [place], [address]. tel:[phone] Est Pt Eval 25 Min [facility], [address], [place], [place], [address], [place] tel:[phone] [facility] back pain (chief complaint) Spondylosis w/o myelopathy or radiculopathy, lumbar regionLong term (current) use of opiate analgesicPain in left hip 1 Gianluca Hsu. [address], [place], [address], [place]. tel:[phone] Referring Provider: Shahida Sutton CNP, [address] [place], [address]. tel:[phone] [facility], [address], [place], [place], [address], [place] tel:[phone] [facility] No Information 1 Cooper Rajiv. [address], [place], [place], [address], [place]. tel:[phone] Referring Provider: Shahida Sutton CNP, [address] [place], [address]. tel:[phone] Est Pt Eval 25 Min Telehealth [facility], [address], [place], [place], [address], [place] tel:[phone] [facility] back pain (chief complaint) Low back painIntervertebral disc disorders w radiculopathy, lumbar regionRadiculopath y, lumbar regionSpinal stenosis, lumbar region with neurogenic claudication 1 Moualee Paulette. [address], [place], [address], [place]. tel:[phone] Referring Provider: Shahida Sutton CNP, [address] [place], [address]. tel:[phone] Est Pt Eval 25 Min [facility], [address], [place], [place], [address], [place] tel:[phone] [facility] back pain (chief complaint) Low back painIntervertebral disc disorders w radiculopathy, lumbar regionRadiculopath y, lumbar region 1 Moualee Paulette. [address], [place], [address], [place]. tel:[phone] Referring Provider: Shahida Sutton CNP, [address] [place], [address]. tel:[phone] [facility], [address], [place], [place], [address], [place] tel:[phone] [facility] No Information 1 Moualee Paulette. [address], [place], [address], [place]. tel:[phone] Referring Provider: Shahida Sutton CNP, [address] [place], [address]. tel:[phone] [facility], [address], [place], [place], [address], [place] tel:[phone] [facility] No Information 1 Stayner Joni. [address], [place], [address], [place]. tel:[phone] Referring Provider: Shahida Sutton CNP, [address] [place], [address]. tel:[phone] [facility], [address], [place], [place], [address], [place] tel:[phone] [facility] No Information 1 Bobbyner Joni. [address], [place], [address], [place]. tel:[phone] Referring Provider: Shahida Sutton CNP, [address] [place], [address]. tel:[phone] Est Pt Eval 25 Min Telehealth [facility], [address], [place], [place], [address], [place] tel:[phone] [facility] back pain (chief complaint) Low back painRadiculopathy, lumbar regionSpinal stenosis, lumbar region with neurogenic claudication 1 Machoka Gael. [address], [place], [address], [place]. tel:[phone] Referring Provider: Shahida Sutton CNP, [address] [place], [address]. tel:[phone] [facility], [address], [place], [place], [address], [place] tel:[phone] [facility] No Information 1 Bobbyner Joni. [address], [place], [address], [place]. tel:[phone] Referring Provider: Joni Rosas, [address], [place], [address]. tel:[phone] [facility], [address], [place], [address], [place] tel:[phone] [facility] back pain (chief complaint) Spinal stenosis, lumbar region with neurogenic claudicationSpondy losis w/o myelopathy of lumbar regionSpondylosis w/o myelopathy or radiculopathy, lumbar regionSpondyls w/o myelopathy or radiculopathy, lumbosacr region 1 [facility]. [address], [place], [place], [address], [place]. tel:[phone] Referring Provider: Shahida Sutton CNP, [address] [place], [address]. tel:[phone] Psychotherap y, 30 minutes with patient MITZY Valentin, [address], [place], [place], [address], [place] tel:[phone] [facility] Pain disorder with related psychological factorsMajor depressive disorder, recurrent, mild 1 Jesus Sanders. [address], [address], [place], [address], [place]. tel:[phone] Referring Provider: Shahida Sutton CNP, [address] [place], [address]. tel:[phone] Psychotherap y, 30 minutes with patient REINIER ValentinC, [address], [place], [place], [address], [place] tel:[phone] [facility] Pain disorder with related psychological factorsMajor depressive disorder, recurrent, mild Apr- 1 eJsus Sanders. [address], [address], [place], [address], [place]. tel:[phone] Referring Provider: Shahida Sutton CNP, [address] [place], [address]. tel:[phone] Est Pt Eval 25 Min Telehealth REINIER ValentinC, [address], [place], [place], [address], [place] tel:[phone] [facility] back pain (chief complaint) Intervertebral disc disorders w radiculopathy, lumbar regionLow back painPain in right shoulder 1 Keyshawn Bazzi. [address], [place], [address], [place]. tel:[phone] Referring Provider: Shahida Sutton CNP, [address] [place], [address]. tel:[phone] Psychotherap y, 30 minutes with patient REINIER Valentin, [address], [place], [place], [address], [place] tel:[phone] [facility] Pain disorder with related psychological factorsMajor depressive disorder, recurrent, mild 1 Jesus Sanders. [address] , [address], [address], [place]. tel:[phone] Referring Provider: Shahida Sutton CNP, [address] [place], [address]. tel:[phone] Est Pt Eval 25 Min Telehealth MITZY Vaelntin, [address], [place], [place], [address], [place] tel:[phone] [facility] back pain (chief complaint) Radiculopathy, lumbar regionSpondylosis w/o myelopathy of lumbar regionLow back pain 1 Chadwick Mayo. [address], [place], [address], [place]. tel:[phone] Referring Provider: Shahida Sutton CNP, [address] [place], [address]. tel:[phone] Psychotherap y, 30 minutes with patient MITZY Valentin, [address], [place], [place], [address], [place] tel:[phone] [facility] Pain disorder with related psychological factors 1 Jesus Sanders. [address] [facility], [address], [address], [place]. tel:[phone] Referring Provider: Shahida Sutton CNP, [address] [place], [address]. tel:[phone] REINIER Valentin, [address] [facility] [address], [place], [address], [place] tel:[phone] [facility] Radiculopathy, lumbar region 1 Mundo Katz. [address] [place], [address], [place]. tel:[phone] Referring Provider: Shahida Sutton CNP, [address] [place], [address]. tel:[phone] [facility], [address] [facility], [address], [address], [place] tel:[phone] [facility] back pain (chief complaint) Spondylosis w/o myelopathy of lumbar regionOther intervertebral disc degeneration, lumbar regionRadiculopath y, lumbar regionIntervertebr al disc disorders with radiculopathy, lumbar regionRadiculopath y, lumbar regionIntervertebr al disc disorders w radiculopathy, lumbar regionOther intervertebral disc degeneration, lumbar region 1 [facility]. [address] [facility] [address], [place], [address], [place]. tel:[phone] Referring Provider: Shahida Sutton CNP, [address] [place], [address]. tel:[phone] REINIER Valentin, [address] [facility] [address], [place], [address], [place] tel:[phone] [facility] No Information 1 Xin Quinones. [address] [facility] [address], [place], [address], [place]. tel:[phone] Referring Provider: Joni Rosas, [address] [facility] [address], [place], [address]. tel:[phone] Psychotherap y, 30 minutes with patient RIENIER Valentin, [address] [facility], [place], [place], [address], [place] tel:[phone] [facility] Pain disorder with related psychological factorsMajor depressive disorder, recurrent, mild 0 Jesus Sanders. [address] [facility], [address], [address], [place]. tel:[phone] Referring Provider: Shahida Sutton CNP, [address] [place], [address]. tel:[phone] Est Pt Eval 15 Min Telehealth MITZY Valentin, [address] [facility], [place], [place], [address], [place] tel:[phone] [facility] back pain (chief complaint) Low back painRadiculopathy, lumbar regionLong term (current) use of opiate analgesicOther intervertebral disc degeneration, lumbar regionPain in right shoulder 0 Maria Isabel Al. [address] [facility] [address], [place], [address], [place]. tel:[phone] Referring Provider: Shahida Sutton CNP, [address] [place], [address]. tel:[phone] REINIER Valentin, [address] [facility], [place], [place], [address], [place] tel:[phone] [facility] No Information 0 Isaac Torres. [address] [facility] [address], [facility] , [place], [address], [place]. tel:[phone] Referring Provider: Shahida Sutton CNP, [address] [place], [address]. tel:[phone] MITZY Valentin, [address], [place], [place], [address], [place] tel:[phone] [facility] No Information Feb- 6-202 0 Stayner Joni. [address], [place], [address], [place]. tel:[phone] Referring Provider: Shahida Sutton CNP, [address] [place], [address]. tel:[phone] Psychotherap y, 45 minutes with patient MITZY Valentin, [address], [place], [place], [address], [place] tel:[phone] [facility] Pain disorder with related psychological factorsMajor depressive disorder, recurrent, mild Dec- 0-202 0 Spehar Tommy. [address] , [address], [address], [place]. tel:[phone] Referring Provider: Shahida Sutton CNP, [address] [place], [address]. tel:[phone] Psychotherap y, 30 minutes with patient MITZY Valentin, [address] , [place], [place], [address], [place] tel:[phone] [facility] Pain disorder with related psychological factorsMajor depressive disorder, recurrent, moderate Dec-0 2-202 0 Jesus Sanders. [address] , [address], [address], [place]. tel:[phone] Referring Provider: Shahida Sutton CNP, [address] [place], [address]. tel:[phone] Psychotherap y, 30 minutes with patient MITZY Valentin, [address], [place], [place], [address], [place] tel:[phone] [facility] Pain disorder with related psychological factorsMajor depressive disorder, recurrent, moderate 0 Jesus Sanders. [address], [address], [place], [address], [place]. tel:[phone] Referring Provider: Shahida Sutton CNP, [address] [place], [address]. tel:[phone] Est Pt Eval 15 Min Homero [facility], [address], [place], [place], [address], [place] tel:[phone] [facility] back pain (chief complaint) Intervertebral disc disorders w radiculopathy, lumbar regionLong term (current) use of opiate analgesicLow back painOther intervertebral disc degeneration, lumbar region 0 Keyshawn Bazzi. [address], [place], [address], [place]. tel:[phone] Referring Provider: Shahida Sutotn CNP, [address] [place], [address]. tel:[phone] REINIER Valentin, [address], [place], [place], [address], [place] tel:[phone] [facility] No Information 0 Keyshawn Bazzi. [address], [place], [address], [place]. tel:[phone] Referring Provider: Shahida Sutton CNP, [address] [place], [address]. tel:[phone] Psychotherap y, 45 minutes with patient REINIER Valnetin, [address], [place], [place], [address], [place] tel:[phone] [facility] Pain disorder with related psychological factorsMajor depressive disorder, recurrent, moderate Jan-03 05- 0 Jesus Sanders. [address] [facility], [address], [address], [place]. tel:[phone] Referring Provider: Shahida Sutton CNP, [address] [place], [address]. tel:[phone] Psychiatric Diagnostic Evaluation Homero [facility], [address] [facility] [address] [facility], [place], [place], [address], [place] tel:[phone] [facility] Pain disorder with related psychological factorsMajor depressive disorder, recurrent, moderate Jan- 0 Jesus Sanders. [address] [facility], [address], [place], [address], [place]. tel:[phone] Referring Provider: Shahida Sutton CNP, [address] [place], [address]. tel:[phone] Est Pt Eval 15 Min Telehealth Homero [facility], [address] [facility] [address], [place], [place], [address], [place] tel:[phone] [facility] back pain (chief complaint) Intervertebral disc disorders w radiculopathy, lumbar regionLow back painOther intervertebral disc degeneration, lumbar regionPain in right shoulderRadiculopa thy, lumbar regionCervicalgia Nov- 0 German Patiño. [address] [facility] [address], [facility] [place], [address], [place]. tel:[phone] Referring Provider: Shahida Sutton CNP, [address] [place], [address]. tel:[phone] Est Pt Eval 15 Min Telehealth Hoemro, [facility], [address] [facility] [address], [place], [place], [address], [place] tel:[phone] [facility] back pain (chief complaint) Intervertebral disc disorders w radiculopathy, lumbar regionOther intervertebral disc degeneration, lumbar regionRadiculopath y, lumbar region 0 German MITCHELL Kaylyn. [address] [facility] [address], [facility] , [place], [address], [place]. tel:[phone] Referring Provider: Shahida Sutton SENIOR CASE MANAGER, [address] [place], [address]. tel:[phone] Homero, [facility], [address], [place], [place], [address], [place] tel:[phone] [facility] No Information 0 Xin Quinones. [address], [place], [address], [place]. tel:[phone] Referring Provider: Joni Rosas, [address], [place], [address]. tel:[phone] [facility], [address], [place], [address], [place] tel:[phone] [facility] back pain (chief complaint) Intervertebral disc disorders with radiculopathy, lumbar regionOther intervertebral disc degeneration, lumbar regionRadiculopath y, lumbar regionRadiculopath y, lumbar regionIntervertebr al disc disorders w radiculopathy, lumbar regionOther intervertebral disc degeneration, lumbar region 0 [facility]. [address], [place], [place], [address], [place]. tel:[phone] Referring Provider: Joni Rosas, [address], [place], [address]. tel:[phone] Est Pt Eval 25 Min Telehealth Homero, [facility], [address], [place], [place], [address], [place] tel:[phone] [facility] back pain (chief complaint) right neck pain (chief complaint) Low back painOther intervertebral disc degeneration, lumbar regionRadiculopath y, lumbar regionCervicalgiaP ain in right shoulderLong term (current) use of opiate analgesic Sep-2 0 Jasmine Mary. [address] [facility] [address], [place], [address], [place]. tel:[phone] Referring Provider: Shahida Sutton CNP, [address] [place], [address]. tel:[phone] Homero [facility], [address] [facility] [address], [place], [place], [address], [place] tel:[phone] [facility] Radiculopathy, lumbar region Sep-2 0 Isaac Torres. [address] [facility] [address], [facility] , [place], [address], [place]. tel:[phone] Referring Provider: Shahida Sutton CNP, [address] [place], [address]. tel:[phone] Est Pt Eval 15 Min Telehealth Homero [facility], [address] [facility] [address], [place], [place], [address], [place] tel:[phone] [facility] back pain (chief complaint) Diabetes insipidusLow back painRadiculopathy, lumbar region Sep-1 0 Collins Sarai. [address] [facility] [address], [place], [address], [place]. tel:[phone] Referring Provider: Shahida Sutton CNP, [address] [place], [address]. tel:[phone] [facility], [address] [facility], [place], [address], [place] tel:[phone] [facility] back pain (chief complaint) Radiculopathy, lumbar regionOther intervertebral disc degeneration, lumbar regionIntervertebr al disc disorder w/ radiculopathy of lumbar regionRadiculopath y, lumbar regionOther intervertebral disc degeneration, lumbar regionIntervertebr al disc disorders w radiculopathy, lumbar region 0 [facility]. [address], [place], [place], [address], [place]. tel:[phone] Referring Provider: Shahida Sutton CNP, [address] [place], [address]. tel:[phone] [facility], [facility], [address], [place], [place], [address], [place] tel:[phone] [facility] No Information 0 Xin Quinones. [address], [place], [address], [place]. tel:[phone] Referring Provider: Joni Rosas, [address], [place], [address]. tel:[phone] Est Pt Eval 15 Min Telehealth [facility], [facility], [address], [place], [place], [address], [place] tel:[phone] [facility] back pain (chief complaint) Diabetes insipidusLow back painRadiculopathy, lumbar region 0 Collins Moon. [address], [place], [address], [place]. tel:[phone] Referring Provider: Shahida Sutton CNP, [address] [place], [address]. tel:[phone] Est Pt Eval 15 Min Telehealth [facility], [facility], [address], [place], [place], [address], [place] tel:[phone] [facility] back pain (chief complaint) Diabetes insipidusLow back painRadiculopathy, lumbar region 0 Collins Moon. [address] [facility] [address], [place], [address], [place]. tel:[phone] Referring Provider: Shahida Sutton CNP, [address] [place], [address]. tel:[phone] New Pt Eval 45 Min Telehealth Homero [facility], [address] [facility] [address], [place], [place], [address], [place] tel:[phone] [facility] back pain (chief complaint) Radiculopathy, lumbar regionLow back painDiabetes insipidus 0 Maria Isabel Al. [address] [facility] [address], [place], [address], [place]. tel:[phone] Referring Provider: Shahida Sutton CNP, [address] [place], [address]. tel:[phone] Family History Family Member Type Diagnosis Age At Onset Mother Problem (finding) Arthritis Mother Problem (finding) Liver Disease Mother Problem (finding) Depression Father Problem (finding) Arthritis Father Problem (finding) Heart Disease Father Problem (finding) Cancer Sister Problem (finding) Neurologiv Condition Payers Payer name Insurance type Covered constitution party ID Authorstaciaa falgunijody(s) Medicare Part B [id number] [employer] [id number] Social History Type Description Quantity Date Captured Comments Alcohol Use Details No Caffeine Use Details coffee 1 cup per day Tobacco Use Status Current non-smoker Smoking Status Former smoker Non-Smoking Tobacco Use Details : No Details Available : No Details Available Sex Male Chief Complaint And Reason For Visit From encounter dated '10/01/2024 11:15'. mid back pain (chief complaint). Description: The pain is located in the mid back on both sides. The mid back pain radiates into the low back on both sides. The pain pattern also includes the L hip. Pain intensity is currently 8/10.The pain is constant. The pain is described as aching and sharp. The following activities make the pain worse: movement. The following activities make the pain better:heat, pain medication and rest. Reason For Referral Reason For Referral No [...] ordered Referral Ordered: Referrals: Orthopedic Surgery. Location: [facility]. Evaluate and treat ordered Referral Ordered: Neurosurgery (related to Intervertebral disc disorders w radiculopathy, lumbar region) ordered Referral Ordered: Referrals: Neurosurgery. Location: [facility]. Consult ordered Referral Ordered: Orthopedic Surgery (related to Pain in left hip) ordered Referral Ordered: Referrals: Orthopedic Surgery. Location: [facility]. Evaluate and treat ordered Referral Ordered: [...] injection L3-4 ordered Appointment Mauro Terrell BOOKED Appointment Mauro Terrell BOOKED Future Order: Lab Order Confirma tory Drug Screen (UDT Or Swab) (7-Drug Class), Ordered on: Ordered Future Order: Lab Order Alcohol (Ethyl Glucuronide) (Alcohol), Ordered on: Ordered Future Order: Radiology Order X- RAY - Lumbar Spine (AP, Neutral, Lateral Neutral, Flexion, Extension Views) ([id number]), Ordered on: Ordered Future Order: Radiology Order CT Scan - Pelvis W/O Contrast ([id number]), Ordered on: Ordered Future Order: Radiology Order CT Scan - Lumbar Spine W/O Contrast ([id number]), Ordered on: Ordered Future Order: Radiology Order MR I - Lumbar Spine W/O Contrast ([id number]), Ordered on: Ordered Future Order: Radiology Order [...] Date Complaint History Of Prese nt Illness mid back pain The pain is loca faraz in the mid back on both sides. The mid back pain radiates into the low back on both sides. The pain pattern also includes the L hip. Pain intensity is currently 8/10.The pain is constant. The pain is described as aching and sharp. The following activities make the pain worse: movement. The following activities make the pain better: heat, pain medication and rest. lower back pain The pain is loca faraz in the low back on both sides. Pain intensity is currently 8/10. mid back pain The pain is loca faraz in the mid back on both sides. The mid back pain radiates into the left hip. Pain intensity is currently 7/10.The pain has been stable . The pain is constant. The pain is described as aching, burning, dull and sharp. The following activities make the pain worse: movement and daily activity. The following activities make the pain better: pain medication and OTC meds. mid back pain The pain is loca faraz in the left mid back. The mid back pain radiates into the left hip. Pain intensity is currently 7/10.The pain is described as aching. The following activities make the pain worse: daily activity. The following activities make the pain better: pain medication and OTC meds. mid back pain The pain is loca faraz in the left mid back. The mid back pain radiates into the left hip. Pain intensity is currently 7/10.The pain has been fluctuating . The following activities make the pain worse: physical activity and daily activity. The following activities make the pain better: pain medication and OTC meds. mid back pain The pain is loca faraz in the mid back on both sides. Pain intensity is currently 8/10.The pain has been stable . The pain is constant. The pain is described as variable. The following activities make the pain worse: physical activity and daily activity. The following activities make the pain better: pain medication and OTC meds. mid back pain The pain is loca faraz in the mid back on both sides. Pain intensity is currently 8/10.The pain has been worsening . The pain is described as sharp and shocking. The following activities make the pain worse: daily activity. The following activities make the pain better: heat and pain medication. mid back pain The pain is loca faraz in the mid back on both sides. There is no radiation of pain. Pain intensity is currently 7/10.The pain is described as sharp and shocking. The following activities make the pain worse: movement, standing and walking. The following activities make the pain better: heat, pain medication, rest and sitting. neck pain The pain is loca faraz in the posterior neck on both sides. The neck pain radiates into the left shoulder. Pain intensity is currently 8/10. lower back pain The lower back p ain radiates into the left leg. The following activities make the pain better: pain medication. lower back pain The pain is loca faraz in the low back on both sides. The pain radiates into the left leg and left foot.The lower back pain radiates into the left hip. Pain intensity is currently 8/10.The pain is described as aching. The following activities make the pain worse: sitting and walking. The following activities make the pain better: pain medication and topicals. lower back pain The pain is loca faraz in the low back on both sides. The pain radiates into the left leg.The lower back pain radiates into the left hip. Pain intensity is currently 7/10.The pain is described as aching, burning and sharp. The following activities make the pain worse: physical activity, walking and bending. The following activities make the pain better: pain medication and OTC meds. lower back pain The pain is loca faraz in the low back on both sides. The lower back pain radiates into the left hip. Pain intensity is currently 7/10.The pain has been worsening . The pain is constant. The pain is described as aching, dull, sharp and stabbing. The following activities make the pain worse: movement. The following activities make the pain better: pain medication, OTC meds and Pain cream. lower back pain (comments) Comme nts: Patient reports that he went to the ER 2 weeks ago due to pressure sores. lower back pain The pain is loca faraz in the low back on both sides. The lower back pain radiates into the left hip. Pain intensity is currently 8/10.The pain has been worsening . The pain is described as aching and sharp. The following activities make the pain worse: movement. lower back pain The primary pain involves [...] relieved by pain meds/drugs. bilateral shoulder pain (comment s) Comments: Patient is unable to lift right arm above his head due to pain. bilateral shoulder pain Location : bilateral shoulder. [...] the counter medication, pain meds/drugs and topicals. left hip pain Location of pain is [...] down and pain meds/drugs. left hip pain Location of pain is left. The patient describes the pain as an ache, sharp and throbbing. Symptom is aggravated by lifting, lying on left side and all hip movement. Relieving factors include heat, menthol gels and medication. Pertinent negatives include fever. left hip pain (comments) Comment s: Patient [...] an ache, burning, dull, sharp and throbbing. back pain Location of pain is Left Lower back and Left hip. Pain is radiated to the Both legs.The patient describes the pain as an ache and shooting. Symptoms are aggravated by daily activities. Symptoms are relieved by pain meds/drugs. right shoulder pain It occurs co nstantly. Location: right shoulder. The pain is throbbing. The pain is aggravated by lifting and movement. bilateral shoulder pain Location : bilateral shoulder. back pain Location of pain is lower back and left hip. Pain is radiated to the left ankle. left hip pain Location of pain is [...] Information Instructions Date Instruction Additional Infor brandon - Follow up with [facility] regarding hip pain if you do not get relief from back injection Related to Pain in left hip - Schedule lumbar ep idural steroid injection *Call [phone]- Refill and continue Percocet to 7.5mg up to 5x/day, for fill 10/04/24- Refill and continue Tizanidine 4mg up to 3x/day, refill waiting at pharmacy- Follow up with Alex Pemberton PA-C in 1 month, Telehealth okay 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, lumbar region - Follow up with [facility] regarding hip pain if you do not get relief from back injection Related to Pain in left hip - Nice to talk with you today- Keep Left Transforaminal Lumbar Epidural Steroid Injection as scheduled 09/04/24- Refill and continue Percocet to 7.5mg up to 5x/day, for fill 09/04/24 for use 09/05/24 - Refill and continue Tizanidine 4mg up to 3x/day, refill waiting at pharmacy- Follow up with Alex Pemberton PA-C in 1 month, Telehealth okay 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, lumbar region - Follow up in 2-3 w eeks to discuss the results from today's procedure Related to Radiculopathy, lumbar region - Follow up with [facility] Related to Pain in left hip - Nice to talk with you today- Keep Left Transforaminal Lumbar Epidural Steroid Injection as scheduled 08/19/24- Refill and continue Percocet to 7.5mg up to 5x/day, for fill today 08/06/24- Continue Tizanidine 4mg up to 3x/day, refill waiting at pharmacy- Follow up with Alex Emanuel PA-C as scheduled 08/06/24 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, lumbar region Lifestyle education regarding di et Related to Body mass index [BMI] 36.0-36.9, adult - Nice to talk with you today- 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 This includes hard candy, mints, and gum. 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 This includes hard candy, mints, and gum. Please bring a solo truck driver as well.* Please call [phone] to scheduleMedications: - Refill and continue Percocet to 7.5mg up to 5x/day, #150 for 30 days, for fill 05/25/24- Continue Tizanidine 4mg up to 3x/day, refill waiting at pharmacyAppointments: - Follow up with primary care provider to discuss loss of consciousness* They can also try to help you with medical transport- Follow up with Francisco Javier Carlisle NP in 1 month, telehealth okay 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, lumbar region Giving encouragement to exercise Related to Body mass index [BMI] 30.0-30.9, adult - [facility] Consider TF lumbar epidural steroid injections if low back pain severeMedications: - Refill and continue Percocet to 7.5mg up to 5x/day. 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 Same POC Related to Osteo arthritis of hip, unspecified - Schedule repeat L side trans LESI at L3-4, L4-5- Refill and increase Percocet to 7.5mg up to 5x/day for 2 week supply, for fill today 03/25/24- Schedule follow up with [facility] in clinic as scheduled on 04/07/24 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, lumbar region - Follow up with ort ho for hip replacement when able Related to Pain in left hip Same POC Related to Osteo arthritis of hip, unspecified - Follow up with ort ho for hip replacement when able Related to Pain in left hip - Follow with [facility] 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 - Schedule repeat L side trans LESI at L3-4, L4-5- Refill and increase Percocet to 7.5mg up to 5x/day, for fill today 02/20- Schedule follow up with [facility] in clinic in 1 month 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, lumbar region - Follow up with [facility] for left hip Related to Pain in left hip - Follow up with car diologist as scheduled for aortic stenosis- Requested records from [facility]- Refill and continue Percocet 5-325mg up to 4x/day as needed, for fill 01/23/24Do not take Ambien within 4 hours of Oxycodone and Gabapentin- Continue Tizanidine 4mg up to 3x/day as needed- Continue Gabapentin 300mg as prescribed by outside provider- Follow up with Francisco Javier Carlisle CNP in 4 weeks, in CLINIC 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, lumbar region Procedures: - Follow up with [facility] regarding Synvisc Injection for your Left Hip*Call in to scheduleAppointments: - Continue to follow up with orthopedic surgeon regarding potential left hip replacement Related to Pain in left hip Medications: - Begin Percocet 5-325mg, 1 tablet up to 4x/day as needed, #120 for 30 days, for fill today 12/24/23 Do not take Ambien within 4 hours of Oxycodone and Gabapentin- STOP Lancaster 5-325mg up 4x/day- Continue Tizanidine 4mg up to 3x/day as needed- Continue Gabapentin 300mg as prescribed by outside providerAppointments: - Keep 12/27/23 appointment with [facility] today for surgical consult- Follow up with Francisco Javier Carlisle CNP in 4 weeks, telehealth ok 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, lumbar region Giving encouragement to exercise Related to Body mass index [BMI] 31.0-31.9, adult Procedures: - Follow up with [facility] regarding Synvisc Injection for your Left Hip*Call in to scheduleMedications: - Try over the counter Lidocaine patches for your left hip- Try [employer] [place], or Voltaren Gel for the affected areaAppointments: - Continue to follow up with orthopedic surgeon regarding potential left hip replacement Related to Pain in left hip Medications: - Refil l and continue Lancaster 5-325mg up to 4x/day as needed, #120 for 30 days, for fill 11/16/23 Do not take Ambien within 4 hours of Lancaster and Gabapentin- Refill and continue Tizanidine 4mg up to 3x/day as needed, for fill today 11/15/23- Continue Gabapentin 300mg as prescribed by outside providerReferrals: - Sent a referral to [facility] today for surgical consult* They will call you to schedule, if you do not hear back within a week please call [phone]: - Follow up with Francisco Javier Carlisle CNP in 4 weeks, telehealth ok 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, lumbar region Related to Prima ry osteoarthritis of right shoulder Giving encouragement to exercise Related to Body mass index [BMI] 31.0-31.9, adult Related to Prima ry osteoarthritis of right shoulder Procedures:- Continu e to monitor relief from the lumbar epidural steroid injectionImaging: - Schedule CT of Lumbar Spine at [facility] for updated imaging*Call [facility] at [phone] to scheduleMedications: - Refill and continue Lancaster 5-325mg up to 4x/day as needed, #56 for 14 days, for fill 11/16/23 Do not take Ambien within 4 hours of [place] and Gabapentin- Refill and continue Tizanidine 4mg up to 3x/day as needed, for fill today 11/15/23- Continue Gabapentin 300mg as prescribed by outside providerAppointments: - Follow up with Francisco Javier Carlisle CNP in 2 weeks, IN CLINIC* Schedule for before 11/29/23 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, lumbar region Procedures: - Follow up with [facility] regarding Synvisc Injection for your Left Hip*Call in to scheduleMedications: - Try over the counter Lidocaine patches for your left hip- Try [employer] [place], or Voltaren Gel for the affected areaAppointments: - Continue to follow up with orthopedic surgeon regarding potential left hip replacement Related to Pain in left hip Giving encouragement to exercise Related to Body mass index [BMI] 32.0-32.9, adult - Follow up in clini c with a nurse practitioner or physician operations manager assistant about the results of today's injection Related to Radiculopathy, lumbar region - Continue to monito r for pain relief from right suprascapular radiofrequency ablation Related to Primary osteoarthritis of right shoulder - Continue to monito r relief from the transforaminal epidural steroid injection- Schedule Lumbar Epidural Steroid Injection*Call [phone]- Schedule CT of Lumbar Spine at [facility]*Call [phone]- Refill and continue Lancaster 5-325mg up to 4x/day as needed, #120 for 30 days, for fill 10/17/23 do not take Ambien within 4 hours of Lancaster and Gabapentin- Continue Tizanidine 4mg up to 3x/day as needed, refills in pharmacy- Continue Gabapentin 300mg as prescribed by outside provider- Follow up with Francisco Javier Carlisle CNP in 4 weeks, IN CLINIC 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, lumbar region - Follow up with [facility] regarding Synvisc Injection for your Left Hip*Call in to schedule- Continue to follow up with orthopedic surgeon regarding potential left hip replacement - Try over the counter Lidocaine patches for your left hip- Try [employer] [place], or Voltaren Gel for the affected area Related to Pain in left hip Lifestyle education regarding di et Related to Body mass index [BMI] 32.0-32.9, adult - Follow up as needed Related to Pain in right shoulder - Follow up with [facility] regarding Synvisc Injection for your Left Hip*[facility] should call you to schedule, if you do not hear from them for 1 week, call in.- Continue to follow up with orthopedic surgeon regarding potential left hip replacement - Try over the counter Lidocaine patches for your left hip- Try [employer] [place], or Voltaren Gel for the affected area Related to Pain in left hip - Continue to monito r relief from the transforaminal epidural steroid injection- Ordered Lumbar Epidural Steroid Injection- Ordered updated imaging for Lumbar Spine at [facility] will call you to schedule- Refill and continue Lancaster 5-325mg up to 4x/day as needed, #120 for 30 days, for fill 09/17/23 do not take Ambien within 4 hours of Lancaster and Gabapentin- Continue Tizanidine 4mg up to [...] hours prior to procedure and bring a solo truck driver* [facility] will call you to schedule, if you do not hear back within a few days please call [phone] Related to Primary osteoarthritis of right shoulder - Continue to monito r relief from the transforaminal epidural steroid injection- Refill and continue Lancaster 5-325mg up to 4x/day as needed, #120 for 30 days, for fill 08/19/23 do not take Ambien within 4 hours of Lancaster and Gabapentin- Continue Tizanidine 4mg up to 3x/day as needed, refills in pharmacy- Continue Gabapentin 300mg as prescribed by outside provider- Follow up with Francisco Javier Carlisle CNP 1 month, in CLINIC 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, lumbar region Giving encouragement to exercise Related to Body mass index [BMI] 34.0-34.9, adult - Follow up with [facility] physician regarding blood pressure management Related to Elevated blood-pressure reading without diagnosis of hypertension - Follow up via tele [employer] tomorrow with Francisco Javier to discuss the results of today's injection and for medication refill Related to Radiculopathy, lumbar region - Schedule right sup rascapular radiofrequency ablation if 80% or greater pain relief Related to Pain in right shoulder - Follow up as sched uled for repeat transforaminal lumbar epidural steroid injection at left L3-4 and L4-5 - Refill and continue Lancaster 5-325mg up to 4x/day as needed. Refill today do not take Ambien within 4 hours of Lancaster and Gabapentin- Continue Tizanidine 4mg up to 3x/day as needed. Refill sent today.- Continue Gabapentin 300mg as prescribed by outside provider- Follow up with a nurse practitioner or physician operations manager assistant in 1 month, in clinic Related [...] daily for cancellations - Refill and continue Lancaster 5-325mg up to 4x/day as needed for fill on 06/19/23 do not take Ambien within 4 hours of [place] and Gabapentin- Continue Tizanidine 4mg up to 3x/day as needed. No refill needed today - Continue Gabapentin 300mg as prescribed by outside provider- Follow up with a nurse practitioner or physician operations manager assistant in 1 month, telehealth ok Related [...] left L3-4 and L4-5- Refill and continue Lancaster 5-325mg up to 4x/day as needed for fill on 05/31/23 do not take Ambien within 4 hours of Lancaster and Gabapentin- Continue Tizanidine 4mg up to [...] to Sacroiliitis - Refill and continu e Lancaster 5-325mg up to 4x/day as needed with #60 for 15 day supply for fill on 05/03/23 do not take Ambien within 4 hours of [place] and Gabapentin- Continue Tizanidine 4mg up to 3x/day as needed. Refill waiting in pharmacy- Continue Gabapentin 300mg as prescribed by outside provider- Follow up with nurse practitioner as scheduled, [place] [facility] on 05/18/23 Related to Pain in left hip Giving encouragement to exercise Related to Body mass index [BMI] 35.0-35.9, adult -Same Related to Osteo arthritis of hip, unspecified -Follow up in clinic to discuss results from today's injection Related to Pain in left hip - Consider left SI j oint injection pending left hip joint injection Related to Sacroiliitis - Keep left hip join t injection on 04/06/23- Refill and continue Lancaster 5-325mg up to 4x/day as needed for fill on 03/29/23 do not take Ambien within 4 hours of Lancaster and Gabapentin- Continue Tizanidine 4mg up to [...] to Sacroiliitis - Refill and continu e Lancaster 5-325mg up to 4x/day as needed for fill on 02/08/23 do not take Ambien within 4 hours of Lancaster and Gabapentin- Refill and continue Tizanidine 4mg [...] up in 2-4 weeks with a Physicians Byproducts Extractor or Nurse Practitioner Related to Pain in left hip - Refill and continu e Lancaster 5-325mg up to 4x/day as needed for fill on 01/09/23 do not take Ambien within 4 hours of Lancaster and Gabapentin- Continue Tizanidine 4mg up to [...] lumbar region - Refill and continu e Lancaster 5-325mg up to 4x/day as needed. Fill on 12/10/22 do not take Ambien within 4 hours of Lancaster and Gabapentin- Continue Tizanidine 4mg up to [...] [BMI] 36.0-36.9, adult - Complete annual [employer] eval- Consider Intrathecal Pain Pump in the future if the injections are not helpful- Refill and continue Lancaster 5-325mg up to 4x/day as needed. Fill on 10/10/22 do not take Ambien within 4 hours of [place] and Gabapentin- Continue Tizanidine 4mg up to [...] sedation, please make sure to bring a solo truck driver with you on the day of your procedure. No food 6-8 hrs prior to injections* The risks and benefits of the procedure will be reviewed with the physician on the day of the procedure. Related to Low back pain Same plan of care as statement for above diagnosis, no changes Related to Pain in left hip - Schedule annual [employer] eval- Can schedule this via Telehealth- Consider Intrathecal Pain Pump in the future if the injections are not helpful- Refill and continue Lancaster 5-325mg up to 4x/day as needed. Fill on 10/11/22 do not take Ambien within 4 hours of Lancaster and Gabapentin- Continue Tizanidine 4mg up to [...] injections are not helpful- Refill and continue Lancaster 5-325mg up to 4x/day as needed. Fill on 09/11/22 do not take Ambien within 4 hours of Lancaster and Gabapentin- Continue Tizanidine 4mg up to [...] injections are not helpful- Refill and continue Lancaster 5-325mg up to 4x/day as needed. Fill on 08/12/22 do not take Ambien within 4 hours of Lancaster and Gabapentin- Continue Tizanidine 4mg up to [...] Sacroiliitis - Keep scheduled oni t for sacroiliac joint injection on 07/15/22 Related to Sacroiliitis - Keep scheduled oni t for bilateral Transforaminal Lumbar Epidural Steroid Injection at the L5/S1 level on 07/17- Consider Intrathecal Pain Pump in the future if the injections are not helpful- Refill and continue Lancaster 5-325mg up to 4x/day as needed. Fill on 07/13/22 do not take Ambien within 4 hours of Lancaster and Gabapentin- Continue Tizanidine 4mg up to [...] injection on 06/14/22 Related to Sacroiliitis - Keep scheduled oni t for left hip nerve block on 07/04/22- Consider left hip radiofrequency ablation if the injection provides you with good pain relief Related to Pain in left hip - Schedule bilateral Transforaminal Lumbar Epidural Steroid Injection at the L5/S1 levels- This has been approved and you can schedule anytime- Consider Intrathecal Pain Pump in the future if the injections are not helpful- Refill and continue Lancaster 5-325mg up to 4x/day as needed. Fill on 06/13/22 do not take Ambien within 4 hours of Lancaster and Gabapentin- Refill and continue Tizanidine 4mg up to 3x/day as needed, for fill 06/13/22- Urine provided in clinic today-Follow up in 4 weeks; Telehealth OK Related to Radiculopathy, lumbar region Lifestyle education regarding di et Related to Body mass index [BMI] 36.0-36.9, adult - Schedule left hip nerve block- Consider [...] injections are not helpful- Refill and continue Lancaster 5-325mg up to 4x/day as needed. Fill on 05/14/22 do not take Ambien within 4 hours of Lancaster and Gabapentin- Continue Tizanidine 4mg up to [...] injections are not helpful- Refill and continue Lancaster 5-325mg up to 4x/day as needed. Fill on 04/14/22 do not take Ambien within 4 hours of [place] and Gabapentin- Refill and continue Tizanidine 4mg [...] Body mass index [BMI] 35.0-35.9, adult - Schedule right yadira ulder steroid injections upon insurance approval, ordered today-Consider right shoulder suprascapular radiofrequency ablation as next step Related to Pain in right shoulder - Schedule Left hip nerve block as it has been approved.- Consider left hip radiofrequency ablation Related to Pain in left hip - Consider Intrathec al Pain Pump in the future if the injections are not helpful- Go to [email or web address] Look under Treatments and find Targeted Drug Delivery to read up on the Intrathecal Pain Pump- Refill and continue Lancaster 5-325mg up to 4x/day as needed. Fill on 03/15/22 do not take Ambien within 4 hours of [place] and Gabapentin- Continue Tizanidine 4mg up to [...] today Related to Pain in left hip - consider bilateral sacroiliac joint injection in the future if pain persist after lumbar epidural injection. Related to Sacroiliitis -Consider right shou lder suprascapular radiofrequency ablation as next step Related to Pain in right shoulder -Refill and continue Lancaster 5-325mg up to 4x/day as needed. Fill on 02/13/22 do not take Ambien within 4 hours of Lancaster and Gabapentin- Refill and continue Tizanidine 4mg [...] Pain in left hip -Refill and continue Lancaster 5-325mg up to 4x/day as needed. Fill on 01/14/22 do not take Ambien within 4 hours of Lancaster and Gabapentin- Continue Tizanidine 4mg up to [...] right shoulder - Follow up in the c linic as scheduledDiscuss suprascapular RFA Related to Pain in right shoulder Lifestyle education regarding di et Related to Body mass index [BMI] 35.0-35.9, adult -Schedule right shou lder Suprascapular Nerve Block pending insurance approval-Consider right shoulder suprascapular radiofrequency ablation as next step Related to Pain in right shoulder -Refill and continue Lancaster 5-325mg up to 4x/day as needed. Fill on 12/15/21 do not take Ambien within 4 hours of Lancaster and Gabapentin- Continue Tizanidine 4mg up to [...] index [BMI] 35.0-35.9, adult -Refill and continue Lancaster 5-325mg up to 4x/day as needed. Fill on 11/15/21 do not take Ambien within 4 hours of Lancaster and Gabapentin- Continue Tizanidine 4mg up to 3x/day as needed. Refill at pharmacy -Continue Gabapentin as prescribed by outside provider [facility] can take over this script in the future when needed.-Order Lumbar CT and X-ray at [facility] due to patient's pacemaker is not compatible with MRI machine [facility] Scheduling Phone#:[phone]-Schedule Lumbar Epidural Steroid Injection at L4-5 and [...] records from c ardiologist -Refill and continue Lancaster 5-325mg 4x/day as needed, for fill 10/16/21-Refill [...] left hip - Refill and continu e Lancaster 5-325mg 4x/day - Proceed with hip injection as scheduled at [facility]- If the hip injection is unsuccessful, plan for SI joint injection- Schedule annual physical therapy - Have cardiology records fax[facility] to [facility] - Follow up with [facility]I in one [...] Dr. 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, lumbar region Order bilateral hip X-ray at [facility] Related to Pain in left hip -Refill and continue Lancaster 5/325mg up to 3x/day as needed, for fill on 07/13/21-Refill and continue Tizanidine 4mg as prescribed -Schedule sacroiliac joint steroid injection once it is OK with dissolver operator-Schedule annual physical therapy evaluation-Follow up in 4 weeks via telehealth Related to Other intervertebral disc degeneration, lumbar region Lifestyle education regarding di et Related to Body mass index [BMI] 37.0-37.9, adult -Continue Warfarin a s prescribed and Tizanidine 4mg as needed-Refill and continue Lancaster 5-325mg, 3x/day as needed, for fill on 06/05/21-Schedule annual Behavioral Health appt. via telehealth -- ROM warning given-Schedule sacroiliac joint injection when able, okay with dissolver operator -Schedule Physical Therapy in combination with injection/in clinic eval for easier transportation -Follow up IN CLINIC in 4 weeks The risks and benefits of the procedure will be reviewed with the physician on the day of the procedure. 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 Same plan of care as statement for above diagnosis, no changes Related to Pain in left hip Lifestyle education regarding di et Related to Body mass index [BMI] 37.0-37.9, adult -Continue Tizanidine 4mg as needed-Refill and continue Lancaster 5-325mg, 3x/day as needed for severe pain, [...] for above diagnosis, no changes Related to halfway (current) use of opiate analgesic Lifestyle education regarding di et Related to Body mass index [BMI] 37.0-37.9, adult Same plan of care as statement for above diagnosis, no changes 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, lumbosacr region -Continue Tizanidine as prescribed-Prescribe Lancaster 5mg up to 3x/day-Discuss possible injections in the future with Type Soldering Machine Tender -Follow up with provider in 4 weeks [...] above diagnosis, no changes Related to terminal operator (current) use of opiate analgesic Follow up [...] steroid injection after lumbar epidural steroid injection-Continue Lancaster 5mg up to 3x/day as needed with #70 for 30 days, for fill today-Continue Belbuca 750mcg 2x/day, has script in pharmacy for fill today-Continue Tizanidine 4mg as prescribed-Schedule physical therapy combine with injections-Follow up 4 weeks in CLINIC Related to Pain in left hip -Refill and continue Tizanidine 4mg as prescribed, for fill today-Refill and continue Lancaster 5-325mg, for fill today-Refill and continue Belbuca 750mcg, for fill on 01/08-Continue MiraLax as needed for constipation -Schedule Lumbar Epidural Steroid injection at L3-4-Follow up in one month 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, lumbar region -Refill Lancaster 5-325m g up to 2x/day-Refill Tizanidine 4mg-Refill [...] changes Related to Pain in right shoulder -Refill Lancaster 5-325m g, 2x/day, #70 for one month [...] on 09/03-Ordered Lumbar Epidural Steroid Injection at U1-4-Fjghtlph Tizanidine 4mg -Refill Lancaster 5-325mg up to 3x/day, #70 for one month-Refill and increase Belbuca 450mcg 2x/day-Follow up in one month via telehealth 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, lumbar region -Schedule repeat estefani ateral SI joint injections if sufficient pain relief is achieved Related to Pain in right hip -Continue with SI quentin int injections on 08/09-Continue Lancaster 5-325mg up to 3x/day, cut back when [...] for above diagnosis, no changes Related to halfway (current) use of opiate analgesic - refill Lancaster 5-325 mg, up to 3x/day for fill [...] Related to Radiculopathy, lumbar region - Refill Lancaster 5-325 mg, up to 3x/day for fill [...] stenosis, lumbar region with neurogenic claudication -Refill Lancaster 5-325m g, up to 3x/day-Continue Tizanidine-Schedule BL [...] - Refer to orthopedi c surgeon at [facility] for arthroscopic surgery consult and evaluation- Use ibuprofen and Tylenol - Ice and rest shoulder Related to Pain in right shoulder - Refill and continu e Lancaster 5-325 take 1-3 tablets/day, #70 for 30 [...] Spondylosis w/o myelopathy of lumbar region - Schedule Lumbar MB B at bilateral L2, L3, L4, L5 Related to 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 He had surgical consult with [facility] on 12/27/23 and reports he was recommended surgery. He reports that he needs heart surgery for aortic stenosis prior to spine surgery. Patient was scheduled for a repeat L TF LESI on 06/24/24 and 08/19/24 but cancelled due to transportation. Patient completed L TF LESI on 09/04/24 and reports initial 20% pain relief. He reports his pain still persists at this time. Suggested targeting a different area by doing a LESI. Patient previously had LESI done on 10/26 and reported good pain relief. Patient is agreeable, ordered today. Patient is currently prescribed Percocet 7.5mg up to 5x/day and Tizanidine 4mg up to 3x/day. Constipation managed with Miralax and stool softener. Refilled no changes.PPN: Patient takes Warfarin 5mg QD. Patient states he has not had INR levels checked since he started Warfarin, encouraged him to follow up with PCP for thisUDT obtained 08/06/24 was appropriate assessment Pain in left hip impression Patient presents wit h persistent L hip painDiscussed sending a referral to [facility]. Patient agreed. Sent referral 08/06/24. Patient states he has been busy following up about his heart so he has been unable to follow up. Encouraged to follow up with them if he continues to have hip pain following injection. Mental Status Date Cognitive Assessment Orientation - [place] ed to time, place, person, situation. Patient Care Teams Name Effective Dates (start - stop) Status Members No Information
--- OUTSIDE RECORDS SUMMARY | 2024-10-01 06:15 | XMS_ITS | Continuity of Care Document ---
Author Organization [facility] Address [address] [place] [address] Phone Care Team Providers Care Diagrammer And Seamer Name Role Phone Alex Pemberton PA-C Unavailable [...] with patient T elephone Only [facility] ASSMT/REASSESSMENT Audio Est Pt Eval Telehealth Est [...] Est Pt Eval Telehealth MITZY Valentin, [address], [place], [place], [address], [place] tel:[phone] [facility] mid back pain (chief complaint) Intervertebral disc disorders w radiculopathy, lumbar regionPain in left hip 5 Nilay Johnson. [address], [place], [place], [address], [place]. tel:[phone] Jasen Miryam CHATMAN.Referri ng Provider: Shahida Sutton VETERINARY TECHNICIAN INSTRUCTOR, [address] [facility], [place], [address]. tel:[phone] [facility], [address], [place], [place], [address], [place] tel:[phone] [facility] No Information 5 Michelle De Luna. [address], [place], [address], [place]. tel:[phone] Referring Provider: Annamarie Martinez , [address], [place], [address]. tel:[phone] [facility], [address], [place], [address], [place] tel:[phone] [facility] lower back pain (chief complaint) Radiculopathy, lumbar regionRadiculopath y, lumbar region 5 [facility]. [address], [place], [place], [address], [place]. tel:[phone] Referring Provider: Annamarie Martinez , [address], [place], [address]. tel:[phone] Est Pt Eval Telehealth [facility], [address], [place], [place], [address], [place] tel:[phone] [facility] mid back pain (chief complaint) Intervertebral disc disorders w radiculopathy, lumbar regionPain in left hip 5 Moualee Paulette. [address], [place], [address], [place]. tel:[phone] Jasen Drevlow DO.Referri ng Provider: Shahida Sutton CNP, [address] [place], [address]. tel:[phone] [facility], [facility], [address], [place], [place], [address], [place] tel:[phone] [facility] No Information 5 Michelle De Luna. [address], [place], [address], [place]. tel:[phone] Referring Provider: Shahida Sutton CNP, [address] [place], [address]. tel:[phone] Est Pt Eval Moderate [facility], [facility], [address], [place], [place], [address], [place] tel:[phone] [facility] mid back pain (chief complaint) Intervertebral disc disorders w radiculopathy, lumbar regionBody mass index (BMI) 36.0-36.9, adultPain in left hip 5 Nilay Johnson. [address], [place], [place], [address], [place]. tel:[phone] Jasen Drevlow DO.Referri ng Provider: Shahida Sutton CNP, [address] [place], [address]. tel:[phone] Est Pt Eval Telehealth [facility], [facility], [address], [place], [place], [address], [place] tel:[phone] [facility] mid back pain (chief complaint) Intervertebral disc disorders w radiculopathy, lumbar region 5 Nilay Johnson. [address] , [place], [place], [address], [place]. tel:[phone] Jasen Drevlow DO.Referri ng Provider: Shahida Sutton CNP, [address] [place], [address]. tel:[phone] [facility], [facility], [address], [place], [place], [address], [place] tel:[phone] [facility] mid back pain (chief complaint) Intervertebral disc disorders w radiculopathy, lumbar regionBody mass index (BMI) 30.0-30.9, adult 5 Person Francisco Javier. [address] , [address], [place], [address], [place]. tel:[phone] Jasen Drevlow DO.Referri ng Provider: Shahida Sutton CNP, [address] [place], [address]. tel:[phone] Est Pt Eval Telehealth [facility], [facility], [address], [place], [place], [address], [place] tel:[phone] [facility] mid back pain (chief complaint) Intervertebral disc disorders w radiculopathy, lumbar regionPain in left hipLeft renal tumor of uncertain behaviorBody mass index (BMI) 30.0-30.9, adult 5 Person Francisco Javier. [address], [address], [place], [address], [place]. tel:[phone] Jasen Drevlow DO.Referri ng Provider: Shahida Sutton CNP, [address] [place], [address]. tel:[phone] Est Pt Eval Telehealth [facility], [facility], [address], [place], [place], [address], [place] tel:[phone] [facility] mid back pain (chief complaint) Intervertebral disc disorders w radiculopathy, lumbar regionPain in left hipLeft renal tumor of uncertain behavior May-0 5 She Qiying. [address], [address], [place], [address], [place]. tel:[phone] Jasen Drevlow DO.Referri ng Provider: Shahida Sutton CNP, [address] [place], [address]. tel:[phone] Est Pt Eval Moderate [facility], [address], [place], [place], [address], [place] tel:[phone] [facility] lower back pain (chief complaint) neck pain (chief complaint) Intervertebral disc disorders w radiculopathy, lumbar regionPain in left hipLeft renal tumor of uncertain behaviorBody mass index (BMI) 30.0-30.9, adult 5 Ketola Andrew. [address] , [facility] [address], [place], [address], [place]. tel:[phone] Jasen Drevlow DO.Referri ng Provider: Shahida Sutton CNP, [address] [place], [address]. tel:[phone] [facility], [address], [place], [place], [address], [place] tel:[phone] [facility] No Information 5 Ketola Aydee. [address], [place], [place], [address], [place]. tel:[phone] Referring Provider: Shahida Sutton CNP, [address] [place], [address]. tel:[phone] Est Pt Eval 10 Min Telehealth ERINIER Valentin, [address], [place], [place], [address], [place] tel:[phone] [facility] lower back pain (chief complaint) Intervertebral disc disorders w radiculopathy, lumbar regionPain in left hipLeft renal tumor of uncertain behaviorBody mass index (BMI) 31.0-31.9, adult 5 Person Francisco Javier. [address], [place], [place], [address], [place]. tel:[phone] Jasen Witt DO.Referri ng Provider: Shahida Sutton CNP, [address] [place], [address]. tel:[phone] Psychotherap y, 30 minutes with patient Telephone Only REINIER Valentin, [address], [place], [place], [address], [place] tel:[phone] [facility] Pain disorder with related psychological factors 5 Diogo Georges. [address], [place], [address], [place]. tel:[phone] Referring Provider: Shahida Sutton CNP, [address] [place], [address]. tel:[phone] [facility], [address], [place], [place], [address], [place] tel:[phone] [facility] Radiculopathy, lumbar regionPain disorder with related psychological factors 5 Diogo Georges. [address], [place], [address], [place]. tel:[phone] Referring Provider: Shahida Sutton CNP, [address] [place], [address]. tel:[phone] Est Pt Eval Telehealth [facility], [facility], [address], [place], [place], [address], [place] tel:[phone] [facility] lower back pain (chief complaint) Intervertebral disc disorders w radiculopathy, lumbar regionPain in left hipOsteoarthritis of hip, unspecifiedLeft renal tumor of uncertain behavior 5 Roly Velazquez. [address], [address], [place], [address], [place]. tel:[phone] Jasen Drevlow DO.Referri ng Provider: Shahida Sutton CNP, [address] [place], [address]. tel:[phone] Est Pt Eval Telehealth [facility], [facility], [address], [place], [place], [address], [place] tel:[phone] [facility] lower back pain (chief complaint) Intervertebral disc disorders w radiculopathy, lumbar regionPain in left hipOsteoarthritis of hip, unspecifiedLeft renal tumor of uncertain behavior 4 Keyshawn Bazzi. [address], [place], [address], [place]. tel:[phone] Jasen Drevlow DO.Referri ng Provider: Shahida Sutton CNP, [address] [place], [address]. tel:[phone] Est Pt Eval Telehealth [facility], [facility], [address], [place], [place], [address], [place] tel:[phone] [facility] lower back pain (chief complaint) Pain in left hipIntervertebral disc disorders w radiculopathy, lumbar region 4 Orestes Mcintyre. [address], [place], [place], [address], [place]. tel:[phone] Jasen Drevlow DO.Referri ng Provider: Shahida Sutton CNP, [address] [place], [address]. tel:[phone] Est Pt Eval Telehealth [facility], [facility], [address], [place], [place], [address], [place] tel:[phone] [facility] lower back pain (chief complaint) Intervertebral disc disorders w radiculopathy, lumbar regionPain in left hipBody mass index (BMI) 31.0-31.9, adult Oct- 4 Person Francisco Javier. [address], [address], [place], [address], [place]. tel:[phone] Jasen Drevlow DO.Referri ng Provider: Shahida Sutton CNP, [address] [place], [address]. tel:[phone] Est Pt Eval Moderate [facility], [facility], [address], [place], [place], [address], [place] tel:[phone] [facility] lower back pain (chief complaint) hip pain (chief complaint) Body mass index (BMI) 31.0-31.9, adultPain in left hipIntervertebral disc disorders w radiculopathy, lumbar regionPrimary osteoarthritis of right shoulder Sep-2 4 Person Francisco Javier. [address], [address], [place], [address], [place]. tel:[phone] Jasen Drevlow DO.Referri ng Provider: Shahida Sutton CNP, [address] [place], [address]. tel:[phone] [facility], [address], [place], [place], [address], [place] tel:[phone] [facility] No Information Sep-2 4 Person Francisco Javier. [address], [address], [place], [place], [address], [place]. tel:[phone] Referring Provider: Shahida Sutton CNP, [address] [place], [address]. tel:[phone] Est Pt Eval Telehealth [facility], [facility], [address], [place], [place], [address], [place] tel:[phone] [facility] lower back pain (chief complaint) Body mass index (BMI) 32.0-32.9, adultIntervertebra l disc disorders w radiculopathy, lumbar regionPain in left hipPrimary osteoarthritis of right shoulder Nov- 4 Person Francisco Javier. [address], [address], [place], [place], [address], [place]. tel:[phone] Jasen Witt DO.Referri ng Provider: Shahida Sutton CNP, [address] [place], [address]. tel:[phone] , [address], [place], [place], [address], [place] tel:[phone] [facility] No Information 4 Xin Quinones. [address], [place], [address], [place]. tel:[phone] Referring Provider: Joni Rosas, [address], [place], [address]. tel:[phone] [facility], [address], [address], [place], [address], [place] tel:[phone] [facility] lower back pain (chief complaint) Radiculopathy, lumbar region 4 [facility]. [address], [place], [place], [address], [place]. tel:[phone] Jasen Drevlow DO.Referri ng Provider: Joni Rosas, [address] [facility] [address], [place], [address]. tel:[phone] , [address], [place], [place], [address], [place] tel:[phone] [facility] No Information 4 Xin Quinones. [address], [place], [address], [place]. tel:[phone] Referring Provider: Joni Rosas, [address] [facility] [address], [place], [address]. tel:[phone] Est Pt Eval Telehealth [facility], [facility], [address] [facility] [address], [place], [place], [address], [place] tel:[phone] [facility] lower back pain (chief complaint) Primary osteoarthritis of right shoulderPain in left hipIntervertebral disc disorders w radiculopathy, lumbar regionBody mass index (BMI) 32.0-32.9, adult 4 Nilay Johnson. [address] [facility] [address], [place], [place], [address], [place]. tel:[phone] Jasen Drevlow DO.Referri ng Provider: Shahida Sutton [facility], [address] [facility], [place], [address]. tel:[phone] [facility], [address], [address], [place], [address], [place] tel:[phone] [facility] shoulder pain (chief complaint) Pain in right shoulderNeuralgia and neuritis, unspecified 4 [facility]. [address], [place], [place], [address], [place]. tel:[phone] Jasen Drevlow DO.Referri ng Provider: Joni Rosalescarmenza Kvng, [address], [place], [address]. tel:[phone] [facility], [facility], [address], [place], [place], [address], [place] tel:[phone] [facility] No Information 4 Xin Joni. [address], [place], [address], [place]. tel:[phone] Referring Provider: Joni Rosalescarmenza Rosas, [address], [place], [address]. tel:[phone] [facility], [facility], [address], [place], [place], [address], [place] tel:[phone] [facility] No Information 4 Xin Joni. [address], [place], [address], [place]. tel:[phone] Referring Provider: Joni Rosalescarmenza Kvng, [address], [place], [address]. tel:[phone] Est Pt Eval Moderate [facility], [facility], [address], [place], [place], [address], [place] tel:[phone] [facility] lower back pain (chief complaint) Intervertebral disc disorders w radiculopathy, lumbar regionPain in left hipPrimary osteoarthritis of right shoulderBody mass index (BMI) 32.0-32.9, adult 4 Nilay Johnson. [address] , [address], [place], [place], [address], [place]. tel:[phone] Jasenshantel Matosvlow DO.Referri ng Provider: Shahida Sutton [facility], [address] [facility], [place], [address]. tel:[phone] , [address], [place], [place], [address], [place] tel:[phone] [facility] No Information 4 Person Francisco Javier. [address], [address], [place], [address], [place]. tel:[phone] Referring Provider: Shahida Sutton CNP, [address] [place], [address]. tel:[phone] Est Pt Eval Telehealth , [address], [place], [place], [address], [place] tel:[phone] [facility] lower back pain (chief complaint) Intervertebral disc disorders w radiculopathy, lumbar regionPrimary osteoarthritis of right shoulderPain in left hipBody mass index (BMI) 34.0-34.9, adult 4 Person Francisco Javier. [address], [address], [place], [address], [place]. tel:[phone] Jasen Witt DO.Referri ng Provider: Shahida Sutton CNP, [address] [place], [address]. tel:[phone] , [address], [place], [place], [address], [place] tel:[phone] [facility] No Information 4 Person Francisco Javier. [address], [place], [place], [address], [place]. tel:[phone] Referring Provider: Shahida Sutton CNP, [address] [place], [address]. tel:[phone] [facility] [place], [address], [place], [address], [place] tel:[phone] [facility] [place] lower back pain (chief complaint) hip pain (chief complaint) leg pain (chief complaint) Radiculopathy, lumbar regionElevated blood-pressure reading without diagnosis of hypertension 4 [facility]. [address], [place], [place], [address], [place]. tel:[phone] Jasen Witt DO.Referri ng Provider: Dominik Mays, [address], [place], [address]. tel:[phone] [facility], [facility], [address], [place], [place], [address], [place] tel:[phone] [facility] No Information 4 Davon Lehman. [address], [place], [address], [place]. tel:[phone] Referring Provider: Dominik Mays, [address], [place], [address]. tel:[phone] [facility], [facility], [address], [place], [place], [address], [place] tel:[phone] [facility] No Information 4 Davon Lehman. [address], [place], [address], [place]. tel:[phone] Referring Provider: Dominik Mays, [address], [place], [address]. tel:[phone] [facility], [address], [place], [address], [place] tel:[phone] [facility] shoulder pain (chief complaint) Pain in right shoulderNeuralgia and neuritis, unspecifiedPain in right shoulderNeuralgia and neuritis, unspecified 4 Xin Quinones. [address], [place], [address], [place]. tel:[phone] Jasen Drevlow DO.Referri ng Provider: Shahida Sutton CNP, [address] [place], [address]. tel:[phone] , [address], [place], [place], [address], [place] tel:[phone] [facility] No Information 4 Xin Quinones. [address], [place], [address], [place]. tel:[phone] Referring Provider: Joni Rosas, [address], [place], [address]. tel:[phone] , [address], [place], [place], [address], [place] tel:[phone] [facility] No Information 4 Xin Quinones. [address], [place], [address], [place]. tel:[phone] Referring Provider: Joni Rosas, [address], [place], [address]. tel:[phone] Est Pt Eval Telehealth , [address], [place], [place], [address], [place] tel:[phone] [facility] lower back pain (chief complaint) Primary osteoarthritis of right shoulderInterverte bral disc disorders w radiculopathy, lumbar regionPain in left hip 4 Person Francisco Javier. [address], [place], [place], [address], [place]. tel:[phone] Jasen Drevlow DO.Referri ng Provider: Shahida Sutton CNP, [address] [place], [address]. tel:[phone] [facility], [address], [place], [place], [address], [place] tel:[phone] [facility] No Information 4 Roly Velazquez. [address], [place], [address], [place]. tel:[phone] Referring Provider: Shahida Sutton CNP, [address] [place], [address]. tel:[phone] Est Pt Eval Telehealth [facility], [facility], [address], [place], [place], [address], [place] tel:[phone] [facility] left hip pain (chief complaint) back pain (chief complaint) Primary osteoarthritis of right shoulderPain in left hipIntervertebral disc disorders w radiculopathy, lumbar regionBody mass index (BMI) 34.0-34.9, adult 4 She Qijohnson. [address] , [facility] [address], [place], [address], [place]. tel:[phone] Jasen Miryam CHATMAN.Referri ng Provider: Shahida Sutton CNP, [address] [place], [address]. tel:[phone] Est Pt Eval Moderate [facility], [facility], [address], [place], [place], [address], [place] tel:[phone] [facility] back pain (chief complaint) bilateral shoulder pain (chief complaint) Pain in left hipIntervertebral disc disorders w radiculopathy, lumbar regionPrimary osteoarthritis of right shoulderBody mass index (BMI) 33.0-33.9, adult 4 Gaston Alice. [address] [place], [place], [address], [place]. tel:[phone] Jasne Drevlow DO.Referri ng Provider: Shahida Sutton CNP, [address] [place], [address]. tel:[phone] [facility], [address], [place], [place], [address], [place] tel:[phone] [facility] No Information 4 Gaston Alice. [address] [place], [place], [address], [place]. tel:[phone] Referring Provider: Shahida Sutton CNP, [address] [place], [address]. tel:[phone] Est Pt Eval Telehealth [facility], [address], [place], [place], [address], [place] tel:[phone] [facility] left hip pain (chief complaint) Body mass index (BMI) 35.0-35.9, adultPain in left hipSacroiliitisInt ervertebral disc disorders w radiculopathy, lumbar region Apr- 4 She Qiying. [address], [place], [address], [place]. tel:[phone] Jasen Drevlow DO.Referri ng Provider: Shahida Sutton CNP, [address] [place], [address]. tel:[phone] [facility], [facility], [address], [place], [place], [address], [place] tel:[phone] [facility] hip pain (chief complaint) Pain in left hipOsteoarthritis of hip, unspecifiedPain in left hipOsteoarthritis of hip, unspecified Feb-0 4 Foster Dominik. [address], [place], [address], [place]. tel:[phone] Jasen Drevlow DO.Referri ng Provider: Shahida Sutton CNP, [address] [place], [address]. tel:[phone] Est Pt Eval Telehealth [facility], [facility], [address], [place], [place], [address], [place] tel:[phone] [facility] back pain (chief complaint) Neck Pain (chief complaint) Body mass index (BMI) 35.0-35.9, adultPain in left hipSacroiliitis 4 She Qiying. [address], [place], [address], [place]. tel:[phone] Jasen Drevlow DO.Referri ng Provider: Shahida Sutton CNP, [address] [place], [address]. tel:[phone] Est Pt Eval Moderate [facility], [facility], [address], [place], [place], [address], [place] tel:[phone] [facility] left hip pain (chief complaint) Pain in left hipSacroiliitisBod y mass index (BMI) 35.0-35.9, adult 3 Gaston Alice. [address] [place], [place], [address], [place]. tel:[phone] Jasen Drevlow DO.Referri ng Provider: Shahida Sutton CNP, [address] [place], [address]. tel:[phone] [facility], [facility], [address], [place], [place], [address], [place] tel:[phone] [facility] No Information 3 Gaston Alice. [address] [place], [place], [address], [place]. tel:[phone] Referring Provider: Shahida Sutton VETERINARY TECHNICIAN INSTRUCTOR, [address], [place], [address]. tel:[phone] [facility], [address], [address], [place], [address], [place] tel:[phone] [facility] left hip pain (chief complaint) Pain in left hipNeuralgia and neuritis, unspecified 3 [facility]. [address], [place], [place], [address], [place]. tel:[phone] Referring Provider: Joni Lauren S, [address], [place], [address]. tel:[phone] [facility], [address], [place], [place], [address], [place] tel:[phone] [facility] No Information 3 Michelle De Luna. [address], [place], [address], [place]. tel:[phone] Referring Provider: Annamarie Martinez , [address], [place], [address]. tel:[phone] [facility], [address], [place], [place], [address], [place] tel:[phone] [facility] No Information 3 Michelle Annamarie. [address], [place], [address], [place]. tel:[phone] Referring Provider: Annamarie Martinez , [address], [place], [address]. tel:[phone] Est Pt Eval Telehealth [facility], [address], [place], [place], [address], [place] tel:[phone] [facility] left hip pain (chief complaint) Pain in left hipBody mass index (BMI) 35.0-35.9, adult Oct- 3 Gaston Alice. [address] [place], [address], [place]. tel:[phone] Referring Provider: Shahida Sutton [facility], [address] [facility], [place], [address]. tel:[phone] [facility], [facility], [address], [place], [place], [address], [place] tel:[phone] [facility] No Information Sep-2 3 Xin Quinones. [address], [place], [address], [place]. tel:[phone] Referring Provider: Joni Rosas, [address], [place], [address]. tel:[phone] [facility], [address], [place], [address], [place] tel:[phone] [facility] back pain (chief complaint) Spondylosis w/o myelopathy or radiculopathy, lumbar regionSacroiliitis Spondylosis w/o myelopathy or radiculopathy, lumbar region Sep-2 3 [facility]. [address], [place], [place], [address], [place]. tel:[phone] Referring Provider: Joni Rosas, [address], [place], [address]. tel:[phone] [facility], [facility], [address], [place], [place], [address], [place] tel:[phone] [facility] No Information Sep-2 3 Xin Quinones. [address], [place], [address], [place]. tel:[phone] Referring Provider: Joni Rosas, [address], [place], [address]. tel:[phone] Est Pt Eval Telehealth [facility], [facility], [address], [place], [place], [address], [place] tel:[phone] [facility] back pain (chief complaint) Radiculopathy, lumbar regionPain in left hipBody mass index (BMI) 36.0-36.9, adult Sep-2 3 Stacie Jeongjohnson. [address], [place], [address], [place]. tel:[phone] Referring Provider: Shahida Sutton CNP, [address] [place], [address]. tel:[phone] Psychiatric Diagnostic Evaluation Telephone Only [facility], [address] [facility] [address], [place], [place], [address], [place] tel:[phone] [facility] Pain disorder with related psychological factorsMajor depressive disorder, recurrent, mild Sep-1 3 Lopez Moreira. [address] , [facility] [address], [place], [address], [place]. tel:[phone] Referring Provider: Shahida Sutton CNP, [address] [place], [address]. tel:[phone] Est Pt Eval Telehealth [facility], [address], [place], [place], [address], [place] tel:[phone] [facility] back pain (chief complaint) Body mass index (BMI) 36.0-36.9, adultRadiculopathy , lumbar regionPain in left hip Sep-0 3 Roly Velazquez. [address], [place], [address], [place]. tel:[phone] Referring Provider: Shahida Sutton CNP, [address] [place], [address]. tel:[phone] Est Pt Eval Moderate [facility], [facility], [address], [place], [place], [address], [place] tel:[phone] [facility] back pain (chief complaint) Radiculopathy, lumbar regionPain in left hipBody mass index (BMI) 36.0-36.9, adultEssential (primary) hypertensionLow back pain 3 Ketola Andrew. [address], [place], [place], [address], [place]. tel:[phone] Referring Provider: Shahida Sutton CNP, [address] [place], [address]. tel:[phone] [facility], [facility], [address], [place], [place], [address], [place] tel:[phone] [facility] No Information 3 Ketola Andrew. [address], [place], [place], [address], [place]. tel:[phone] Referring Provider: Shahida Sutton CNP, [address] [place], [address]. tel:[phone] [facility], [facility], [address], [place], [place], [address], [place] tel:[phone] [facility] No Information 3 Davon Lehman. [address], [place], [address], [place]. tel:[phone] Referring Provider: Dominik Mays, [address], [place], [address]. tel:[phone] [facility], [address], [address], [place], [address], [place] tel:[phone] [facility] left hip pain (chief complaint) Osteoarthritis of hip, unspecifiedPain in left hipOsteoarthritis of hip, unspecifiedPain in left hip 3 [facility]. [address], [place], [place], [address], [place]. tel:[phone] Referring Provider: Dominik Mays, [address], [place], [address]. tel:[phone] [facility], [address], [place], [place], [address], [place] tel:[phone] [facility] No Information 3 Davon Lehman. [address], [place], [address], [place]. tel:[phone] Referring Provider: Dominik Mays, [address], [place], [address]. tel:[phone] [facility], [address], [place], [place], [address], [place] tel:[phone] [facility] Osteoarthritis of hip, unspecified 3 Maria Isabel Al. [address], [place], [place], [address], [place]. tel:[phone] Referring Provider: Shahida Sutton [employer]IN[employer] TECH[employer]ICIAN INSTRU[employer], [address] [facility], [place], [address]. tel:[phone] Est Pt Eval 25 Min Telehealth REINIER Valentin, [address], [place], [place], [address], [place] tel:[phone] [facility] back pain (chief complaint) Radiculopathy, lumbar regionPain in left hipSacroiliitisBod y mass index (BMI) 36.0-36.9, adult 3 Ketola Andrew. [address], [place], [place], [address], [place]. tel:[phone] Referring Provider: Shahida Sutton [facility], [address] [facility], [place], [address]. tel:[phone] [facility], [address], [place], [place], [address], [place] tel:[phone] [facility] No Information 3 Michelle De Luna. [address], [place], [address], [place]. tel:[phone] Referring Provider: Annamarie Martinez , [address], [place], [address]. tel:[phone] [facility], [address], [address], [place], [address], [place] tel:[phone] [facility] left hip pain (chief complaint) Pain in left hipPain in left hipNeuralgia and neuritis, unspecified 3 [facility]. [address], [place], [place], [address], [place]. tel:[phone] Referring Provider: Annamarie Martinez , [address], [place], [address]. tel:[phone] [facility], [address], [place], [place], [address], [place] tel:[phone] [facility] No Information 3 Michelle De Luna. [address], [place], [address], [place]. tel:[phone] Referring Provider: Annamarie Vestal , [address], [place], [address]. tel:[phone] Est Pt Eval 25 Min Telehealth [facility], [facility], [address], [place], [place], [address], [place] tel:[phone] [facility] back pain (chief complaint) Pain in left hipRadiculopathy, lumbar regionSacroiliitis Body mass index (BMI) 36.0-36.9, adult Jean 3 Ketola Aydee. [address], [place], [place], [address], [place]. tel:[phone] Referring Provider: Shahida Sutton [facility], [address] [facility], [place], [address]. tel:[phone] [facility] [place], [address], [address], [place], [address], [place] tel:[phone] [facility] back pain (chief complaint) Radiculopathy, lumbar regionRadiculopath y, lumbar region 3 [facility]. [address], [place], [place], [address], [place]. tel:[phone] Referring Provider: Dominik Mays, [address], [place], [address]. tel:[phone] REINIER Valentin, [address], [place], [place], [address], [place] tel:[phone] [facility] [place] [facility] No Information 3 Davon Lehman. [address], [place], [address], [place]. tel:[phone] Referring Provider: Dominik Mays, [address], [place], [address]. tel:[phone] RE[facility] Valentin, [address], [place], [place], [address], [place] tel:[phone] [facility] [place] No Information 3 Davon Lehman. [address], [place], [address], [place]. tel:[phone] Referring Provider: Dominik Mays, [address], [place], [address]. tel:[phone] MITZY Valentin, [address], [place], [place], [address], [place] tel:[phone] [facility] No Information 3 Davon Lehman. [address], [place], [address], [place]. tel:[phone] Referring Provider: Dominik Mays, [address], [place], [address]. tel:[phone] [facility], [address], [place], [address], [place] tel:[phone] [facility] back pain (chief complaint) SacroiliitisSacroi liitis, not elsewhere classified 3 [facility]. [address], [place], [place], [address], [place]. tel:[phone] Referring Provider: Shahida Sutton VETERINARY TECHNICIAN INSTRUCTOR, [address] [facility], [place], [address]. tel:[phone] [facility], [address], [place], [place], [address], [place] tel:[phone] [facility] No Information 3 Davon Lehman. [address], [place], [address], [place]. tel:[phone] Referring Provider: Dominik Mays, [address], [place], [address]. tel:[phone] Est Pt Eval 25 Min Telehealth [facility], [address], [place], [place], [address], [place] tel:[phone] [facility] back pain (chief complaint) Radiculopathy, lumbar regionPain in left hipSacroiliitisBod y mass index (BMI) 36.0-36.9, adult 3 Ketola Aydee. [address], [place], [place], [address], [place]. tel:[phone] Referring Provider: Shahida Sutton CNP, [address] [place], [address]. tel:[phone] [facility], [address], [address], [place], [address], [place] tel:[phone] [facility] No Information 3 Vestal Annamarie. [address], [place], [address], [place]. tel:[phone] Referring Provider: Shahida Sutton CNP, [address] [place], [address]. tel:[phone] [facility], [address], [place], [place], [address], [place] tel:[phone] [facility] No Information 3 Vestal Annamarie. [address], [place], [address], [place]. tel:[phone] Referring Provider: Shahida Sutton CNP, [address] [place], [address]. tel:[phone] Est Pt Eval 25 Min REINIER Valentin, [address], [place], [place], [address], [place] tel:[phone] [facility] back pain (chief complaint) Radiculopathy, lumbar regionPain in left hipSacroiliitisBod y mass index (BMI) 36.0-36.9, adult Jun- 0 3 Ketola Aydee. [address], [address], [address], [place]. tel:[phone] Referring Provider: Shahida Sutton CNP, [address] [place], [address]. tel:[phone] RE[facility] Valent[facility], [address], [place], [address], [place] tel:[phone] [facility] No Information 3 Ketola Aydee. [address], [address], [place], [address], [place]. tel:[phone] Referring Provider: Shahida Sutton CNP, [address] [place], [address]. tel:[phone] Est Pt Eval 25 Min Telehealth [facility], [address], [place], [place], [address], [place] tel:[phone] [facility] back pain (chief complaint) bilateral hip pain (chief complaint) Radiculopathy, lumbar regionPain in left hipSacroiliitisBod y mass index (BMI) 37.0-37.9, adult May- 0 3 Ketola Andrew. [address], [address], [address], [place]. tel:[phone] Referring Provider: Shahida Sutton CNP, [address] [place], [address]. tel:[phone] [facility], [address], [place], [place], [address], [place] tel:[phone] [facility] No Information Mar-0 3 Davon Dominik. [address], [place], [address], [place]. tel:[phone] Referring Provider: Dominik Mays, [address], [place], [address]. tel:[phone] [facility], [address], [address], [place], [address], [place] tel:[phone] [facility] back pain (chief complaint) Radiculopathy, lumbar regionRadiculopath y, lumbar region Mar-0 3 [facility]. [address], [place], [place], [address], [place]. tel:[phone] Referring Provider: Shahida Sutton CNP, [address] [place], [address]. tel:[phone] [facility], [address], [place], [place], [address], [place] tel:[phone] [facility] No Information 0 3 Davon Dominik. [address], [place], [address], [place]. tel:[phone] Referring Provider: Dominik Mays, [address], [place], [address]. tel:[phone] [facility] [place], [address], [address], [place], [address], [place] tel:[phone] [facility] left hip pain (chief complaint) Pain in left hipNeuralgia and neuritis, unspecifiedPain in left hip 3 [facility]. [address], [place], [place], [address], [place]. tel:[phone] Referring Provider: Shahida Sutton CNP, [address] [place], [address]. tel:[phone] [facility], [address], [place], [place], [address], [place] tel:[phone] [facility] No Information 3 Kenneth Vance. [address], [place], [place], [address], [place]. tel:[phone] Referring Provider: Rajiv Cooper, [address], [place], [address] . tel:[phone] [facility], [address], [place], [place], [address], [place] tel:[phone] [facility] No Information 3 Kenneth Vance. [address], [place], [place], [address], [place]. tel:[phone] Referring Provider: Shahida Sutton CNP, [address] [place], [address]. tel:[phone] Est Pt Eval 25 Min Telehealth [facility], [address], [place], [place], [address], [place] tel:[phone] [facility] back pain (chief complaint) Body mass index (BMI) 35.0-35.9, adultRadiculopathy , lumbar regionPain in left hipSacroiliitis 3 Ketola Andrew. [address], [place], [place], [address], [place]. tel:[phone] Referring Provider: Shahida Sutton CNP, [address] [place], [address]. tel:[phone] Est Pt Eval 25 Min Telehealth [facility], [facility], [address], [place], [place], [address], [place] tel:[phone] [facility] back pain (chief complaint) Radiculopathy, lumbar regionSacroiliitis Pain in left hipPain in right shoulder 3 Ketola Andrew. [address], [address], [place], [address], [place]. tel:[phone] Referring Provider: Shahida Sutton CNP, [address] [place], [address]. tel:[phone] Est Pt Eval 25 Min Telehealth [facility], [facility], [address], [place], [place], [address], [place] tel:[phone] [facility] left hip pain (chief complaint) right shoulder pain (chief complaint) Radiculopathy, lumbar regionSacroiliitis Pain in left hipPain in right shoulderBody mass index (BMI) 35.0-35.9, adult 2 Ketola Aydee. [address], [address], [place], [address], [place]. tel:[phone] Referring Provider: Shahida Sutton CNP, [address] [place], [address]. tel:[phone] [facility] [place], [address], [address], [place], [address], [place] tel:[phone] [facility] right shoulder pain (chief complaint) Pain in right shoulderNeuralgia and neuritis, unspecifiedPain in right shoulderNeuralgia and neuritis, unspecified 2 [facility]. [address], [place], [place], [address], [place]. tel:[phone] Referring Provider: Dominik Mays, [address], [place], [address]. tel:[phone] Est Pt Eval 25 Min [facility], [address], [place], [place], [address], [place] tel:[phone] [facility] back pain (chief complaint) Pain in right shoulderPain in left hipRadiculopathy, lumbar regionSacroiliitis Body mass index (BMI) 35.0-35.9, adult 2 Ketola Andrew. [address], [address], [place], [address], [place]. tel:[phone] Referring Provider: Shahida Sutton CNP, [address] [place], [address]. tel:[phone] [facility], [address], [place], [address], [place] tel:[phone] [facility] No Information 2 Ketola Andrew. [address], [address], [place], [address], [place]. tel:[phone] Referring Provider: Shahida Sutton CNP, [address] [place], [address]. tel:[phone] [facility], [address], [place], [address], [place] tel:[phone] [facility] No Information 2 Ketola Andrew. [address], [address], [place], [address], [place]. tel:[phone] Referring Provider: Shahida Sutton CNP, [address] [place], [address]. tel:[phone] [facility], [address], [place], [place], [address], [place] tel:[phone] [facility] No Information 2 Davon Lehman. [address], [place], [address], [place]. tel:[phone] Referring Provider: Dominik Davon, [address], [place], [address]. tel:[phone] Est Pt Eval 25 Min Telehealth [facility], [facility], [address], [place], [place], [address], [place] tel:[phone] [facility] left hip pain (chief complaint) Pain in left hipRadiculopathy, lumbar regionPain in right shoulderBody mass index (BMI) 35.0-35.9, adult Oct- 2 Roly Velazquez. [address], [address], [place], [address], [place]. tel:[phone] Referring Provider: Shahida Sutton CNP, [address] [place], [address]. tel:[phone] Est Pt Eval 25 Min Telehealth , [address], [place], [place], [address], [place] tel:[phone] [facility] right shoulder pain (chief complaint) back pain (chief complaint) Body mass index (BMI) 35.0-35.9, adultRadiculopathy , lumbar regionPain in left hipPain in right shoulder Sep-0 2 She Roderick. [address], [address], [place], [address], [place]. tel:[phone] Referring Provider: Shahida Sutton CNP, [address] [place], [address]. tel:[phone] [facility], [address], [place], [place], [address], [place] tel:[phone] [facility] Radiculopathy, lumbar regionPain in left hip 2 Isaac Torres. [address], [facility] , [place], [address], [place]. tel:[phone] Referring Provider: Shahida Sutton CNP, [address] [place], [address]. tel:[phone] [facility], [address], [place], [place], [address], [place] tel:[phone] [facility] Radiculopathy, lumbar regionPain in left hip 2 Cole Nataliia. [address], [place], [address], [place]. tel:[phone] Referring Provider: Shahida Sutton CNP, [address] [place], [address]. tel:[phone] Est Pt Eval 25 Min [facility] Valent[facility], [address], [place], [place], [address], [place] tel:[phone] [facility] back pain (chief complaint) bilateral shoulder pain (chief complaint) Intervertebral disc disorders w radiculopathy, lumbar regionPain in left hipBody mass index (BMI) 35.0-35.9, adult 2 She Roderick. [address], [place], [address], [place]. tel:[phone] Referring Provider: Shahida Sutton CNP, [address] [place], [address]. tel:[phone] [facility], [address], [place], [place], [address], [place] tel:[phone] [facility] [place] No Information 2 Stacie Vaughn. [address], [place], [address], [place]. tel:[phone] Referring Provider: Shahida Sutton CNP, [address] [place], [address]. tel:[phone] Psychotherap y, 30 minutes with patient Telephone Only [facility], [address], [place], [place], [address], [place] tel:[phone] [facility] Pain disorder with related psychological factorsMajor depressive disorder, recurrent, mild 2 Jesus Sanders. [address], [place], [address], [place]. tel:[phone] Referring Provider: Shahida Sutton CNP, [address] [place], [address]. tel:[phone] [facility], [address], [place], [place], [address], [place] tel:[phone] [facility] No Information 2 Adryan Louis. [address], [address], [place], [place], [address], [place]. tel:[phone] Referring Provider: Shahida Sutton CNP, [address] [place], [address]. tel:[phone] Est Pt Eval 25 Min Telehealth [facility], [address], [place], [place], [address], [place] tel:[phone] [facility] left hip pain (chief complaint) Intervertebral disc disorders w radiculopathy, lumbar regionOsteoarthrit is of hip, unspecifiedPain in left hipBody mass index (BMI) 37.0-37.9, adult 2 Maria Isabel Al. [address], [place], [address], [place]. tel:[phone] Referring Provider: Shahida Sutton CNP, [address] [place], [address]. tel:[phone] Psychotherap y, 30 minutes with patient [facility], [address], [place], [place], [address], [place] tel:[phone] [facility] Pain disorder with related psychological factors 2 Jesus Sanders. [address], [place], [address], [place]. tel:[phone] Referring Provider: Shahida Sutton CNP, [address] [place], [address]. tel:[phone] Est Pt Eval 25 Min Telehealth MITZY Valentin, [address], [place], [place], [address], [place] tel:[phone] [facility] back pain (chief complaint) Intervertebral disc disorders w radiculopathy, lumbar regionPain in left hipPain in left legOsteoarthritis of hip, unspecified 2 Maria Isabel Al. [address], [place], [address], [place]. tel:[phone] Referring Provider: Shahida Sutton CNP, [address] [place], [address]. tel:[phone] Psychotherap y, 30 minutes with patient MITZY Valentin, [address], [place], [place], [address], [place] tel:[phone] [facility] Pain disorder with related psychological factorsMajor depressive disorder, recurrent, mild Aug- 2 Jesus Tommy. [address], [place], [address], [place]. tel:[phone] Referring Provider: Shahida Sutton CNP, [address] [place], [address]. tel:[phone] Est Pt Eval 25 Min REINIER Valentin, [address], [place], [place], [address], [place] tel:[phone] [facility] back pain (chief complaint) Other intervertebral disc degeneration, lumbar regionPain in left hipBody mass index (BMI) 37.0-37.9, adult 2 She Qiying. [address], [place], [address], [place]. tel:[phone] Referring Provider: Shahida Sutton CNP, [address] [place], [address]. tel:[phone] REINIER Valentin, [address], [place], [place], [address], [place] tel:[phone] [facility] No Information 2 She Qiying. [address], [place], [address], [place]. tel:[phone] Referring Provider: Shahida Sutton CNP, [address] [place], [address]. tel:[phone] Psychotherap y, 30 minutes with patient MITZY Valentin, [address], [place], [place], [address], [place] tel:[phone] [facility] Pain disorder with related psychological factorsMajor depressive disorder, recurrent, mild 2 Jesus Sanders. [address], [place], [address], [place]. tel:[phone] Referring Provider: Shahida Sutton CNP, [address] [place] [address], [address]. tel:[phone] REINIER Valentin, [address], [place], [address], tel:[phone] [facility] No Information 2 Stacie Vaughn. [address] [facility], [address], [place], [address], [place]. tel:[phone] Referring Provider: Shahida Sutton CNP, [address] [place] [address], [facility]. tel:[phone] MITZY Valentin, [address], [place], [address], [place] tel:[phone] [facility] No Information 2 Xin Quinones. [address], [place], [address], [place]. tel:[phone] Referring Provider: Shahida Sutton CNP, [address] [place] [address], [address]. tel:[phone] Psychiatric Diagnostic Evaluation MITZY Valentin, [address], [place], [address], [place] tel:[phone] [facility] Pain disorder with related psychological factorsMajor depressive disorder, recurrent, moderate Jun- 2 Jesus Sanders. [address] , [address], [place], [address], [place]. tel:[phone] Referring Provider: Shahida Sutton CNP, [address] [place] [address], [address]. tel:[phone] Est Pt Eval 25 Min [facility], [address], [place], [place], [address], [place] tel:[phone] [facility] pain (chief complaint) Spondyls w/o myelopathy or radiculopathy, lumbosacr regionPain in left hipLong term (current) use of opiate analgesicBody mass index (BMI) 37.0-37.9, adult Jun- 2 She Qiying. [address], [place], [address], [place]. tel:[phone] Referring Provider: Shahida Sutton CNP, [address] [place], [address]. tel:[phone] Est Pt Eval 25 Min [facility], [address], [place], [place], [address], [place] tel:[phone] [facility] back pain (chief complaint) Spondyls w/o myelopathy or radiculopathy, lumbosacr regionPain in left hipPain in left legLong term (current) use of opiate analgesicBody mass index (BMI) 37.0-37.9, adult 2 She Qiying. [address], [address], [place], [address], [place]. tel:[phone] Referring Provider: Shahida Sutton CNP, [address] [place], [address]. tel:[phone] Est Pt Eval 25 Min [facility], [address], [place], [place], [address], [place] tel:[phone] [facility] (chief complaint) Intervertebral disc disorders w radiculopathy, lumbar regionSpondyls w/o myelopathy or radiculopathy, lumbosacr regionPain in left hipBody mass index (BMI) 37.0-37.9, adult Apr-0 2 Roly Velazquez. [address], [address], [place], [address], [place]. tel:[phone] Referring Provider: Shahida Sutton CNP, [address] [place], [address]. tel:[phone] Est Pt Eval 25 Min [facility], [address], [place], [place], [address], [place] tel:[phone] [facility] back pain (chief complaint) Pain in left hipLong term (current) use of opiate analgesicSpondyls w/o myelopathy or radiculopathy, lumbosacr region 1 She Qiying. [address], [place], [address], [place]. tel:[phone] Referring Provider: Shahida Sutton CNP, [address] [place], [address]. tel:[phone] [facility], [address], [place], [place], [address], [place] tel:[phone] [facility] No Information 1 She Qiying. [address], [place], [address], [place]. tel:[phone] Referring Provider: Shahida Sutton CNP, [address] [place], [address]. tel:[phone] [facility], [address], [place], [address], [place] tel:[phone] [facility] No Information 1 Xin Quinones. [address], [place], [address], [place]. tel:[phone] Referring Provider: Joni Rosas, [address], [place], [address]. tel:[phone] [facility] [place], [address], [place], [address], [place] tel:[phone] [facility] back pain (chief complaint) left leg pain (chief complaint) left hip pain (chief complaint) Radiculopathy, lumbar regionRadiculopath y, lumbar region 1 [facility] Surgical [facility]. [address], [place], [place], [address], [place]. tel:[phone] Referring Provider: Joni Rosas, [address], [place], [address]. tel:[phone] Est Pt Eval 25 Min [facility], [address], [place], [place], [address], [place] tel:[phone] [facility] back pain (chief complaint) Pain in left hipRadiculopathy, lumbar region 1 She Qiying. [address], [place], [address], [place]. tel:[phone] Referring Provider: Shahida Sutotn CNP, [address] [facility], [place], [address]. tel:[phone] Est Pt Eval 25 Min [facility], [address], [place], [place], [address], [place] tel:[phone] [facility] back pain (chief complaint) right shoulder pain (chief complaint) Intervertebral disc disorders w radiculopathy, lumbar regionPain in right shoulder 1 She Qiying. [address], [place], [address], [place]. tel:[phone] Referring Provider: Shahida Sutton CNP, [address] [place], [address]. tel:[phone] Est Pt Eval 25 Min Telehealth REINIER Valentin, [address], [place], [address], [place] tel:[phone] [facility] right shoulder pain (chief complaint) Pain in right shoulderPain in right armCervicalgiaOthe r intervertebral disc degeneration, lumbar region 1 Gianluca Hsu. [address], [place], [address], [place]. tel:[phone] Referring Provider: Shahida Sutton CNP, [address] [place], [address]. tel:[phone] [facility], [address], [place], [address], [place] tel:[phone] [facility] No Information Sep-3 1 Stayner Joni. [address] [facility] [address], [place], [address], [place]. tel:[phone] Referring Provider: Shahida Sutton CNP, [address] [place], [address]. tel:[phone] [facility], [address], [place], [address], [place] tel:[phone] [facility] No Information Sep-3 1 Stayner Joni. [address] [facility] [address], [place], [address], [place]. tel:[phone] Referring Provider: Shahida Sutton CNP, [address] [place], [address]. tel:[phone] Est Pt Eval 25 Min Telehealth REINIER Valentin, [address], [place], [place], [address], [place] tel:[phone] [place] [facility] back pain (chief complaint) right shoulder pain (chief complaint) Spondylosis w/o myelopathy or radiculopathy, lumbar regionPain in left legPain in right shoulder Nov- 1 Gianluca Hsu. [address], [place], [address], [place]. tel:[phone] Referring Provider: Shahida Sutton CNP, [address] [place], [address]. tel:[phone] Est Pt Eval 25 Min [facility], [address], [place], [place], [address], [place] tel:[phone] [place] [facility] back pain (chief complaint) Low back painPain in left hipPain in right shoulder 1 Chadwick Mayo. [address], [place], [address], [place]. tel:[phone] Referring Provider: Shahida Sutton CNP, [address] [place], [address]. tel:[phone] [facility], [address], [place], [place], [address], [place] tel:[phone] [facility] No Information 1 Machoka Orina. [address], [place], [address], [place]. tel:[phone] Referring Provider: Shahida Sutton CNP, [address] [place], [address]. tel:[phone] Est Pt Eval 25 Min [facility], [address], [place], [place], [address], [place] tel:[phone] [facility] back pain (chief complaint) Other intervertebral disc degeneration, lumbar region 1 Gianluca Hsu. [address], [place], [address], [place]. tel:[phone] Referring Provider: Shahida Sutton CNP, [address] [place], [address]. tel:[phone] [facility], [facility], [address], [place], [place], [address], [place] tel:[phone] [facility] No Information 1 Maria Isabel Barrera. [address], [place], [place], [address], [place]. tel:[phone] Referring Provider: Bruce Nam, [address], [place], [address] . tel:[phone] [facility], [address], [place], [address], [place] tel:[phone] [facility] back pain (chief complaint) Sacroiliitis, not elsewhere classifiedSacroili itis, not elsewhere classified 1 [facility]. [address], [place], [place], [address], [place]. tel:[phone] Referring Provider: Bruce Nam, [address], [place], [address] . tel:[phone] [facility], [address], [place], [address], [place] tel:[phone] [facility] [place] No Information 1 Kenneth Vance. [address], [address], [place], [place], [address], [place]. tel:[phone] Referring Provider: Shahida Sutton CNP, [address] [place], [address]. tel:[phone] [facility], [address], [place], [place], [address], [place] tel:[phone] [facility] No Information 1 Kenneth Vance. [address], [address], [place], [place], [address], [place]. tel:[phone] Referring Provider: Shahida Sutton CNP, [address] [place], [address]. tel:[phone] Est Pt Eval 25 Min [facility], [facility], [address], [place], [place], [address], [place] tel:[phone] [facility] back pain (chief complaint) Intervertebral disc disorders w radiculopathy, lumbar region 1 Gianluca Hsu. [address], [place], [address], [place]. tel:[phone] Referring Provider: Shahida Sutton CNP, [address] [place], [address]. tel:[phone] [facility], [address], [place], [address], [place] tel:[phone] [facility] back pain (chief complaint) Pain in right hipPain in left hipPain in right hipPain in left hip 1 [facility]. [address], [place], [place], [address], [place]. tel:[phone] Referring Provider: Shahida Sutton CNP, [address] [place], [address]. tel:[phone] [facility], [address], [place], [place], [address], [place] tel:[phone] [facility] No Information 1 Xin Quinones. [address], [place], [address], [place]. tel:[phone] Referring Provider: Joni Rosas, [address], [place], [address]. tel:[phone] Est Pt Eval 25 Min [facility], [address], [place], [place], [address], [place] tel:[phone] [facility] back pain (chief complaint) Spondylosis w/o myelopathy or radiculopathy, lumbar regionLong term (current) use of opiate analgesicPain in left hip 1 Gianluca Hsu. [address], [place], [address], [place]. tel:[phone] Referring Provider: Shahida Sutton CNP, [address] [place], [address]. tel:[phone] [facility], [address], [place], [place], [address], [place] tel:[phone] [facility] No Information 1 Cooper Rajiv. [address], [place], [place], [address], [place]. tel:[phone] Referring Provider: Shahida Sutton CNP, [address] [place], [address]. tel:[phone] Est Pt Eval 25 Min [facility], [address], [place], [place], [address], [place] tel:[phone] [facility] back pain (chief complaint) Low back painIntervertebral disc disorders w radiculopathy, lumbar regionRadiculopath y, lumbar regionSpinal stenosis, lumbar region with neurogenic claudication 1 Moualee Paulette. [address], [place], [address], [place]. tel:[phone] Referring Provider: Shahida Sutton CNP, [address] [place], [address]. tel:[phone] Est Pt Eval 25 Min [facility], [address], [place], [place], [address], [place] tel:[phone] [facility] back pain (chief complaint) Low back painIntervertebral disc disorders w radiculopathy, lumbar regionRadiculopath y, lumbar region 1 Moualee Paulette. [address], [place], [address], [place]. tel:[phone] Referring Provider: Shahida Sutton CNP, [address] [place], [address]. tel:[phone] [facility], [address], [place], [place], [address], [place] tel:[phone] [facility] No Information 1 Moualee Paueltte. [address], [place], [address], [place]. tel:[phone] Referring Provider: Shahida Sutton CNP, [address] [place], [address]. tel:[phone] [facility], [address], [place], [place], [address], [place] tel:[phone] [facility] No Information 1 Stayner Joni. [address], [place], [address], [place]. tel:[phone] Referring Provider: Shahida Sutton CNP, [address] [place], [address]. tel:[phone] [facility], [address], [place], [place], [address], [place] tel:[phone] [facility] No Information 1 Bobbyner Joni. [address], [place], [address], [place]. tel:[phone] Referring Provider: Shahida Sutton CNP, [address] [place], [address]. tel:[phone] Est Pt Eval 25 Min [facility], [address], [place], [place], [address], [place] tel:[phone] [facility] back pain (chief complaint) Low back painRadiculopathy, lumbar regionSpinal stenosis, lumbar region with neurogenic claudication 1 Machoka Gael. [address], [place], [address], [place]. tel:[phone] Referring Provider: Shahida Sutton CNP, [address] [place], [address]. tel:[phone] [facility], [address], [place], [place], [address], [place] tel:[phone] [facility] No Information 1 Bobbyner Joni. [address], [place], [address], [place]. tel:[phone] Referring Provider: Joni Rosas, [address], [place], [address]. tel:[phone] [facility] [place], [address], [place], [address], [place] tel:[phone] [facility] back pain (chief complaint) Spinal stenosis, lumbar region with neurogenic claudicationSpondy losis w/o myelopathy of lumbar regionSpondylosis w/o myelopathy or radiculopathy, lumbar regionSpondyls w/o myelopathy or radiculopathy, lumbosacr region 1 [facility]. [address], [place], [place], [address], [place]. tel:[phone] Referring Provider: Shahida Sutton CNP, [address] [place], [address]. tel:[phone] Psychotherap y, 30 minutes with patient MITZY Valentin, [address], [place], [place], [address], [place] tel:[phone] [facility] Pain disorder with related psychological factorsMajor depressive disorder, recurrent, mild 1 Jesus Sanders. [address], [address], [place], [address], [place]. tel:[phone] Referring Provider: Shahida Sutton CNP, [address] [place], [address]. tel:[phone] Psychotherap y, 30 minutes with patient REINIER ValentinC, [address], [place], [place], [address], [place] tel:[phone] [facility] Pain disorder with related psychological factorsMajor depressive disorder, recurrent, mild Apr- 1 Jesus Sanders. [address], [place], [address], [place]. tel:[phone] Referring Provider: Shahida Sutton CNP, [address] [place], [address]. tel:[phone] Est Pt Eval 25 Min Telehealth [facility], [address], [place], [place], [address], [place] tel:[phone] [facility] back pain (chief complaint) Intervertebral disc disorders w radiculopathy, lumbar regionLow back painPain in right shoulder 1 Keyshawn Bazzi. [address], [place], [address], [place]. tel:[phone] Referring Provider: Shahida Sutton CNP, [address] [place], [address]. tel:[phone] Psychotherap y, 30 minutes with patient REINIER Valentin, [address], [place], [place], [address], [place] tel:[phone] [facility] Pain disorder with related psychological factorsMajor depressive disorder, recurrent, mild 1 Jesus Sanders. [address], [place], [address], [place]. tel:[phone] Referring Provider: Shahida Sutton CNP, [address] [place], [address]. tel:[phone] Est Pt Eval 25 Min Tele[facility], [address], [place], [place], [address], [place] tel:[phone] [facility] back pain (chief complaint) Radiculopathy, lumbar regionSpondylosis w/o myelopathy of lumbar regionLow back pain 1 Chadwick Mayo. [address], [place], [address], [place]. tel:[phone] Referring Provider: Shahida Sutton CNP, [address] [place], [address]. tel:[phone] Psychotherap y, 30 minutes with patient MITZY Valentin, [address], [place], [place], [address], [place] tel:[phone] [facility] Pain disorder with related psychological factors 1 Jesus Sanders. [address] [facility], [address], [place], [address], [place]. tel:[phone] Referring Provider: Shahida Sutton CNP, [address] [place], [address]. tel:[phone] REINIER Valentin, [address] [facility] [address], [place], [address], [place] tel:[phone] [facility] Radiculopathy, lumbar region 1 Mundo Katz. [address] [place], [address], [place]. tel:[phone] Referring Provider: Shahida Sutton CNP, [address] [place], [address]. tel:[phone] [facility], [address] [facility], [address], [place], [address], [place] tel:[phone] [facility] back pain (chief complaint) Spondylosis w/o myelopathy of lumbar regionRadiculopath y, lumbar regionIntervertebr al disc disorders with radiculopathy, lumbar regionOther intervertebral disc degeneration, lumbar regionRadiculopath y, lumbar regionIntervertebr al disc disorders w radiculopathy, lumbar regionOther intervertebral disc degeneration, lumbar region 1 [facility] Surgical [facility]. [address] [facility] [address], [place], [address], [place]. tel:[phone] Referring Provider: Shahida Sutton CNP, [address] [place], [address]. tel:[phone] [facility], [address] [facility] [address], [place], [address], [place] tel:[phone] [facility] No Information 1 Xin Quinones. [address] [facility] [address], [place], [address], [place]. tel:[phone] Referring Provider: Joni Rosas, [address] [facility] [address], [place], [address]. tel:[phone] Psychotherap y, 30 minutes with patient REINIER [facility], [address], [place], [place], [address], [place] tel:[phone] [facility] Pain disorder with related psychological factorsMajor depressive disorder, recurrent, mild 0 Jesus Sanders. [address] [facility], [address], [place], [address], [place]. tel:[phone] Referring Provider: Shahida Sutton CNP, [address] [place], [address]. tel:[phone] Est Pt Eval 15 Min [facility], [address], [place], [place], [address], [place] tel:[phone] [facility] back pain (chief complaint) Low back painRadiculopathy, lumbar regionLong term (current) use of opiate analgesicOther intervertebral disc degeneration, lumbar regionPain in right shoulder 0 Maria Isabel Al. [address] [facility] [address], [place], [address], [place]. tel:[phone] Referring Provider: Shahida Sutton CNP, [address] [place], [address]. tel:[phone] RE[facility], [address], [place], [place], [address], [place] tel:[phone] [facility] No Information 0 Isaac Torres. [address] [facility] [address], [facility] , [place], [address], [place]. tel:[phone] Referring Provider: Shahida Sutton CNP, [address] [place], [address]. tel:[phone] [facility], [address], [place], [place], [address], [place] tel:[phone] [facility] No Information Feb- 6-202 0 Stayner Joni. [address], [place], [address], [place]. tel:[phone] Referring Provider: Shahida Sutton CNP, [address] [place], [address]. tel:[phone] Psychotherap y, 45 minutes with patient MITZY Valentin, [address], [place], [place], [address], [place] tel:[phone] [facility] Services Pain disorder with related psychological factorsMajor depressive disorder, recurrent, mild Dec- 0-202 0 Spehar Tommy. [address] , [address], [place], [address], [place]. tel:[phone] Referring Provider: Shahida Sutton CNP, [address] [place], [address]. tel:[phone] Psychotherap y, 30 minutes with patient MITZY Valentin, [address] , [place], [place], [id number], [place] tel:[phone] [facility] Pain disorder with related psychological factorsMajor depressive disorder, recurrent, moderate Dec-0 2-202 0 Jesus Sanders. [address] , [address], [place], [address], [place]. tel:[phone] Referring Provider: Shahida Sutton CNP, [address] [place], [address]. tel:[phone] Psychotherap y, 30 minutes with patient MITZY Valentin, [address], [place], [place], [address], [place] tel:[phone] [facility] Pain disorder with related psychological factorsMajor depressive disorder, recurrent, moderate 0 Jesus Sanders. [address], [address], [place], [address], [place]. tel:[phone] Referring Provider: Shahida Sutton CNP, [address] [place], [address]. tel:[phone] Est Pt Eval 15 Min [facility], [address], [place], [place], [address], [place] tel:[phone] [facility] back pain (chief complaint) Intervertebral disc disorders w radiculopathy, lumbar regionLong term (current) use of opiate analgesicLow back painOther intervertebral disc degeneration, lumbar region 0 Keyshawn Bazzi. [address], [place], [address], [place]. tel:[phone] Referring Provider: Shahida Sutton CNP, [address] [place], [address]. tel:[phone] REINIER Valentin, [address], [place], [place], [address], [place] tel:[phone] [facility] No Information 0 Keyshawn Bazzi. [address], [place], [address], [place]. tel:[phone] Referring Provider: Shahida Sutton CNP, [address] [place], [address]. tel:[phone] Psychotherap y, 45 minutes with patient REINIER Valentin, [address], [place], [place], [address], [place] tel:[phone] [facility] Pain disorder with related psychological factorsMajor depressive disorder, recurrent, moderate Jan-03 05- 0 Jesus Sanders. [address] [facility], [address], [place], [address], [place]. tel:[phone] Referring Provider: Shahida Sutton CNP, [address] [place], [address]. tel:[phone] Psychiatric Diagnostic Evaluation [facility], [address], [place], [place], [address], [place] tel:[phone] [facility] Pain disorder with related psychological factorsMajor depressive disorder, recurrent, moderate Jan- 0 Jesus Sanders. [address] [facility], [address], [place], [address], [place]. tel:[phone] Referring Provider: Shahida Sutton CNP, [address] [place], [address]. tel:[phone] Est Pt Eval 15 Min Telehealth [facility], [address] [facility] [address], [place], [place], [address], [place] tel:[phone] [facility] back pain (chief complaint) Intervertebral disc disorders w radiculopathy, lumbar regionLow back painOther intervertebral disc degeneration, lumbar regionPain in right shoulderRadiculopa thy, lumbar regionCervicalgia Nov- 0 German Patiño. [address] [facility] [address], [facility], [address], [place]. tel:[phone] Referring Provider: Shahida Sutton CNP, [address] [place], [address]. tel:[phone] Est Pt Eval 15 Min Telehealth Homero, [facility], [address] [facility] [address], [place], [place], [address], [place] tel:[phone] [facility] back pain (chief complaint) Intervertebral disc disorders w radiculopathy, lumbar regionOther intervertebral disc degeneration, lumbar regionRadiculopath y, lumbar region 0 German MITCHELL Kaylyn. [address] [facility] [address], [facility] , [place], [address], [place]. tel:[phone] Referring Provider: Shahida Sutton VETERINARY TECHNICIAN INSTRUCTOR, [address] [place], [address]. tel:[phone] Homero, [facility], [address], [place], [place], [address], [place] tel:[phone] [facility] No Information 0 Xin Quinones. [address], [place], [address], [place]. tel:[phone] Referring Provider: Joni Rosas, [address], [place], [address]. tel:[phone] [facility], [address], [place], [address], [place] tel:[phone] [facility] back pain (chief complaint) Radiculopathy, lumbar regionIntervertebr al disc disorders with radiculopathy, lumbar regionOther intervertebral disc degeneration, lumbar regionRadiculopath y, lumbar regionIntervertebr al disc disorders w radiculopathy, lumbar regionOther intervertebral disc degeneration, lumbar region 0 [facility]. [address], [place], [place], [address], [place]. tel:[phone] Referring Provider: Joni Rosas, [address], [place], [address]. tel:[phone] Est Pt Eval 25 Min Telehealth Homero, [facility], [address], [place], [place], [address], [place] tel:[phone] [facility] back pain (chief complaint) right neck pain (chief complaint) Low back painOther intervertebral disc degeneration, lumbar regionRadiculopath y, lumbar regionCervicalgiaP ain in right shoulderLong term (current) use of opiate analgesic Sep-2 0 Jasmine Mary. [address] [facility] [address], [place], [address], [place]. tel:[phone] Referring Provider: Shahida Sutton CNP, [address] [place], [address]. tel:[phone] [facility], [address] [facility] [address], [place], [place], [address], [place] tel:[phone] [facility] Radiculopathy, lumbar region Sep-2 0 Isaac Torres. [address] [facility] [address], [facility] , [place], [address], [place]. tel:[phone] Referring Provider: Shahida Sutton CNP, [address] [place], [address]. tel:[phone] Est Pt Eval 15 Min Telehealth Homero [facility], [address] [facility] [address], [place], [place], [address], [place] tel:[phone] [facility] back pain (chief complaint) Diabetes insipidusLow back painRadiculopathy, lumbar region Sep-1 0 Collins Sarai. [address] [facility] [address], [place], [address], [place]. tel:[phone] Referring Provider: Shahida Sutton CNP, [address] [place], [address]. tel:[phone] [facility], [address] [facility], [address], [place], [address], [place] tel:[phone] [facility] back pain (chief complaint) Radiculopathy, lumbar regionOther intervertebral disc degeneration, lumbar regionIntervertebr al disc disorder w/ radiculopathy of lumbar regionRadiculopath y, lumbar regionOther intervertebral disc degeneration, lumbar regionIntervertebr al disc disorders w radiculopathy, lumbar region 0 [facility] Surgical [facility]. [address], [place], [place], [address], [place]. tel:[phone] Referring Provider: Shahida Sutton CNP, [address] [place], [address]. tel:[phone] Homero, [facility], [address], [place], [place], [address], [place] tel:[phone] [facility] No Information 0 Xin Quinones. [address], [place], [address], [place]. tel:[phone] Referring Provider: Joni Rosas, [address], [place], [address]. tel:[phone] Est Pt Eval 15 Min Telehealth [facility], [facility], [address], [place], [place], [address], [place] tel:[phone] [facility] back pain (chief complaint) Diabetes insipidusLow back painRadiculopathy, lumbar region 0 Collins Moon. [address], [place], [address], [place]. tel:[phone] Referring Provider: Shahida Sutton CNP, [address] [place], [address]. tel:[phone] Est Pt Eval 15 Min Telehealth [facility], [facility], [address], [place], [place], [address], [place] tel:[phone] [facility] back pain (chief complaint) Diabetes insipidusLow back painRadiculopathy, lumbar region Oct- 0 Collins Moon. [address] [facility] [address], [place], [address], [place]. tel:[phone] Referring Provider: Shahida Sutton CNP, [address] [place], [address]. tel:[phone] New Pt Eval 45 Min Telehealth Homero, [facility], [address] [facility] [address], [place], [address], [place] tel:[phone] [facility] back pain (chief complaint) Radiculopathy, lumbar regionLow back painDiabetes insipidus 0 Maria Isabel Al. [address] [facility] [address], [place], [address], [place]. tel:[phone] Referring Provider: Shahida Sutton CNP, [address] [place], [address]. tel:[phone] Family History Family Member Type Diagnosis Age At Onset Mother Problem (finding) Arthritis Mother Problem (finding) Liver Disease Mother Problem (finding) Depression Father Problem (finding) Arthritis Father Problem (finding) Heart Disease Father Problem (finding) Cancer Sister Problem (finding) Neurologiv Condition Payers Payer name Insurance type Covered libertarian ID Authorrosalind decker(s) Medicare Part B [id number] [employer] [id number] Social History Type Description Quantity Date Captured [...] region) ordered Referral Ordered: Referrals: Neurosurgery. Location: [facility]. Consult ordered Referral Ordered: Orthopedic Surgery (related to Pain in left hip) ordered Referral Ordered: Referrals: Orthopedic Surgery. Location: [facility]. Evaluate and treat ordered Referral Ordered: [...] MR I - Lumbar Spine W/O Contrast ([id number]), Ordered on: Ordered Future Order: Radiology Order [...] Schedule lumbar ep idural steroid injection *Call [phone]- Refill and continue Percocet to 7.5mg up [...] with you today- Follow up with your patrol deputy sheriff - Keep Left Transforaminal Lumbar Epidural Steroid [...] candy, mints, and gum. Please bring a delivery truck driver as well.Medications: - Refill and [...] to Body mass index [BMI] 30.0-30.9, adult Procedures:- Ordered repeat transforaminal lumbar epidural steroid injections * If you would like sedation, please do not eat or drink for 8 hours prior to procedure. This includes hard candy, mints, and gum. Please bring a delivery truck driver as well.* Please call [phone] to scheduleMedications: - Refill and continue Percocet [...] 30.0-30.9, adult - Follow up with ort ho for hip replacement when able Related to Pain in left hip - [facility] [place] [facility] Consider TF lumbar epidural steroid injections [...] Left renal tumor of uncertain behavior Procedures:- Conside r low back injections once [...] refill sent today.Records: - [facility] todayAppointments: - Follow up with Francisco [...] Body mass index [BMI] 31.0-31.9, adult - Schedule repeat L side trans LESI [...] Osteo arthritis of hip, unspecified - Follow with [facility] Related to [...] radiculopathy, lumbar region - Follow up with [facility] for left hip Related to Pain in left hip - Follow up with car diologist as scheduled for aortic stenosis- Requested records from [facility]- Refill and continue Percocet 5-325mg up to 4x/day as needed, for fill 01/23/24Do not take Ambien within 4 hours of Oxycodone and Gabapentin- Continue Tizanidine 4mg up to 3x/day as needed- Continue Gabapentin 300mg as prescribed by outside provider- Follow up with Francisco Javier Carlisle CNP in 4 weeks, in CLINIC 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, lumbar region Medications: - Begin Percocet 5-325mg, 1 tablet up to 4x/day as needed, #120 for 30 days, for fill today 12/24/23 Do not take Ambien within 4 hours of Oxycodone and Gabapentin- STOP [place] 5-325mg up 4x/day- Continue Tizanidine 4mg up to 3x/day as needed- Continue Gabapentin 300mg as prescribed by outside providerAppointments: - Keep 12/27/23 appointment with [facility] today for surgical consult- Follow up with Francisco Javier Carlisle CNP in 4 weeks, telehealth ok 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, lumbar region Procedures: - Follow up with [facility] regarding Synvisc Injection for your Left Hip*Call in to scheduleAppointments: - Continue to follow up with orthopedic surgeon regarding potential left hip replacement Related to Pain in left hip Giving encouragement to exercise Related to Body mass index [BMI] 31.0-31.9, adult Procedures: - Follow up with [facility] regarding Synvisc Injection for your Left Hip*Call in to scheduleMedications: - Try over the counter Lidocaine patches for your left hip- Try [employer] [place], or Voltaren Gel for the affected areaAppointments: - Continue to follow up with orthopedic surgeon regarding potential left hip replacement Related to Pain in left hip Medications: - Refil l and continue [place] 5-325mg up to 4x/day as needed, #120 for 30 days, for fill 11/16/23 Do not take Ambien within 4 hours of [place] and Gabapentin- Refill and continue Tizanidine 4mg up to 3x/day as needed, for fill today 11/15/23- Continue Gabapentin 300mg as prescribed by outside providerReferrals: - Sent a referral to [facility] today for surgical consult* They will call you to schedule, if you do not hear back within a week please call [phone]: - Follow up with Francisco Javier Carlisle [...] - Schedule CT of Lumbar Spine at [facility] for updated imaging*Call [facility] at [phone] to scheduleMedications: - Refill and continue [place] 5-325mg up to 4x/day as needed, #56 for 14 days, for fill 11/16/23 Do not take Ambien within 4 hours of [place] and Gabapentin- Refill and continue Tizanidine 4mg up to 3x/day as needed, for fill today 11/15/23- Continue Gabapentin 300mg as prescribed by outside providerAppointments: - Follow up with Francisco Javier Carlisle CNP in 2 weeks, IN CLINIC* Schedule for before 11/29/23 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, lumbar region Procedures: - Follow up with [facility] regarding Synvisc Injection for your Left Hip*Call in to scheduleMedications: - Try over the counter Lidocaine patches for your left hip- Try [employer] [place], or Voltaren Gel for the affected areaAppointments: - Continue to follow up with orthopedic surgeon regarding potential left hip replacement Related to Pain in left hip Giving encouragement to exercise Related to Body mass index [BMI] 32.0-32.9, adult - Follow up in clini c with a nurse practitioner or physician physical therapy assistant about the results of today's injection Related to Radiculopathy, lumbar region - Continue to monito r for pain relief from right suprascapular radiofrequency ablation Related to Primary osteoarthritis of right shoulder - Follow up with [facility] regarding Synvisc Injection for your Left Hip*Call in to schedule- Continue to follow up with orthopedic surgeon regarding potential left hip replacement - Try over the counter Lidocaine patches for your left hip- Try [employer] [place], or Voltaren Gel for the affected area Related to Pain in left hip - Continue to monito r relief from the transforaminal epidural steroid injection- Schedule Lumbar Epidural Steroid Injection*Call [phone]- Schedule CT of Lumbar Spine at [facility]*Call [phone]- Refill and continue [place] 5-325mg up to 4x/day as needed, #120 for 30 days, for fill 10/17/23 do not take Ambien within 4 hours of [place] and Gabapentin- Continue Tizanidine 4mg up to [...] in right shoulder - Follow up with [facility] regarding Synvisc Injection for your Left Hip*[facility] should call you to schedule, if you do not hear from them for 1 week, call in.- Continue to follow up with orthopedic surgeon regarding potential left hip replacement - Try over the counter Lidocaine patches for your left hip- Try [employer] [place], or Voltaren Gel for the affected area Related to Pain in left hip - Continue to monito r relief from the transforaminal epidural steroid injection- Ordered Lumbar Epidural Steroid Injection- Ordered updated imaging for Lumbar Spine at [facility] will call you to schedule- Refill and continue [place] 5-325mg up to 4x/day as needed, #120 for 30 days, for fill 09/17/23 do not take Ambien within 4 hours of [place] and Gabapentin- Continue Tizanidine 4mg up to [...] hours prior to procedure and bring a delivery truck driver* [facility] will call you to schedule, if you do not hear back within a few days please call [phone] Related to Primary osteoarthritis of right shoulder - Continue to monito r relief from the transforaminal epidural steroid injection- Refill and continue [place] 5-325mg up to 4x/day as needed, #120 for 30 days, for fill 08/19/23 do not take Ambien within 4 hours of [place] and Gabapentin- Continue Tizanidine 4mg up to 3x/day as needed, refills in pharmacy- Continue Gabapentin 300mg as prescribed by outside provider- Follow up with Francisco Javier Carlisle CNP 1 month, in CLINIC 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, lumbar region Giving encouragement to exercise Related to Body mass index [BMI] 34.0-34.9, adult - Follow up with [facility] physician regarding blood pressure management Related [...] L3-4 and L4-5 - Refill and continue [place] 5-325mg up to 4x/day as needed. Refill today do not take Ambien within 4 hours of [place] and Gabapentin- Continue Tizanidine 4mg up to 3x/day as needed. Refill sent today.- Continue Gabapentin 300mg as prescribed by outside provider- Follow up with a nurse practitioner or physician physical therapy assistant in 1 month, in clinic 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, lumbar region - Follow up as sched uled for right suprascapular nerve block on 07/25/23 Related to Primary osteoarthritis of right shoulder - Follow up as sched uled for repeat transforaminal lumbar epidural steroid injection at left L3-4 and L4-5 on 07/11/23Call daily for cancellations - Refill and continue [place] 5-325mg up to 4x/day as needed for fill on 06/19/23 do not take Ambien within 4 hours of [place] and Gabapentin- Continue Tizanidine 4mg up to 3x/day as needed. No refill needed today - Continue Gabapentin 300mg as prescribed by outside provider- Follow up with a nurse practitioner or physician physical therapy assistant in 1 month, telehealth ok Related [...] left L3-4 and L4-5- Refill and continue [place] 5-325mg up to 4x/day as needed for fill on 05/31/23 do not take Ambien within 4 hours of [place] and Gabapentin- Continue Tizanidine 4mg up to [...] to Sacroiliitis - Refill and continu e [place] 5-325mg up to 4x/day as needed with #60 for 15 day supply for fill on 05/03/23 do not take Ambien within 4 hours of [place] and Gabapentin- Continue Tizanidine 4mg up to [...] t injection on 04/06/23- Refill and continue [place] 5-325mg up to 4x/day as needed for fill on 03/29/23 do not take Ambien within 4 hours of [place] and Gabapentin- Continue Tizanidine 4mg up to [...] to Sacroiliitis - Refill and continu e [place] 5-325mg up to 4x/day as needed for fill on 02/08/23 do not take Ambien within 4 hours of [place] and Gabapentin- Refill and continue Tizanidine 4mg [...] up in 2-4 weeks with a Physicians Deputy Insurance Commissioner or Nurse Practitioner Related to Pain in left hip - Refill and continu e [place] 5-325mg up to 4x/day as needed for fill on 01/09/23 do not take Ambien within 4 hours of [place] and Gabapentin- Continue Tizanidine 4mg up to [...] lumbar region - Refill and continu e [place] 5-325mg up to 4x/day as needed. Fill on 12/10/22 do not take Ambien within 4 hours of [place] and Gabapentin- Continue Tizanidine 4mg up to [...] in left hip - Complete annual Be DoseMe eval- Consider Intrathecal Pain Pump in the future if the injections are not helpful- Refill and continue [place] 5-325mg up to 4x/day as needed. Fill on 10/10/22 do not take Ambien within 4 hours of [place] and Gabapentin- Continue Tizanidine 4mg up to [...] sedation, please make sure to bring a delivery truck driver with you on the day of your procedure. No food 6-8 hrs prior to injections* The risks and benefits of the procedure will be reviewed with the physician on the day of the procedure. Related to Low back pain Same plan of care as statement for above diagnosis, no changes Related to Pain in left hip - Schedule annual Be DoseMe eval- Can schedule this via Telehealth- Consider Intrathecal Pain Pump in the future if the injections are not helpful- Refill and continue [place] 5-325mg up to 4x/day as needed. Fill on 10/11/22 do not take Ambien within 4 hours of [place] and Gabapentin- Continue Tizanidine 4mg up to [...] injections are not helpful- Refill and continue [place] 5-325mg up to 4x/day as needed. Fill on 09/11/22 do not take Ambien within 4 hours of [place] and Gabapentin- Continue Tizanidine 4mg up to [...] injections are not helpful- Refill and continue [place] 5-325mg up to 4x/day as needed. Fill on 08/12/22 do not take Ambien within 4 hours of [place] and Gabapentin- Continue Tizanidine 4mg up to [...] injections are not helpful- Refill and continue [place] 5-325mg up to 4x/day as needed. Fill on 07/13/22 do not take Ambien within 4 hours of [place] and Gabapentin- Continue Tizanidine 4mg up to [...] injections are not helpful- Refill and continue [place] 5-325mg up to 4x/day as needed. Fill on 06/13/22 do not take Ambien within 4 hours of [place] and Gabapentin- Refill and continue Tizanidine 4mg [...] injections are not helpful- Refill and continue [place] 5-325mg up to 4x/day as needed. Fill on 05/14/22 do not take Ambien within 4 hours of [place] and Gabapentin- Continue Tizanidine 4mg up to [...] injections are not helpful- Refill and continue [place] 5-325mg up to 4x/day as needed. Fill on 04/14/22 do not take Ambien within 4 hours of [place] and Gabapentin- Refill and continue Tizanidine 4mg [...] the injections are not helpful- Go to [email or web address].[email or web address] Look under Treatments and find Targeted Drug Delivery to read up on the Intrathecal Pain Pump- Refill and continue [place] 5-325mg up to 4x/day as needed. Fill on 03/15/22 do not take Ambien within 4 hours of [place] and Gabapentin- Continue Tizanidine 4mg up to [...] Pain in right shoulder -Refill and continue [place] 5-325mg up to 4x/day as needed. Fill on 02/13/22 do not take Ambien within 4 hours of [place] and Gabapentin- Refill and continue Tizanidine 4mg [...] Pain in left hip -Refill and continue [place] 5-325mg up to 4x/day as needed. Fill on 01/14/22 do not take Ambien within 4 hours of [place] and Gabapentin- Continue Tizanidine 4mg up to [...] shoulder - [facility] scheduledDiscuss suprascapular RFA Related to Pain in right shoulder Lifestyle education regarding di et Related to Body mass index [BMI] 35.0-35.9, adult -Schedule right shou lder Suprascapular Nerve Block pending insurance approval-Consider right shoulder suprascapular radiofrequency ablation as next step Related to Pain in right shoulder -Refill and continue [place] 5-325mg up to 4x/day as needed. Fill on 12/15/21 do not take Ambien within 4 hours of [place] and Gabapentin- Continue Tizanidine 4mg up to [...] index [BMI] 35.0-35.9, adult -Refill and continue [place] 5-325mg up to 4x/day as needed. Fill on 11/15/21 do not take Ambien within 4 hours of [place] and Gabapentin- Continue Tizanidine 4mg up to 3x/day as needed. Refill at pharmacy -Continue Gabapentin as prescribed by outside provider [facility] can take over this script in the future when needed.-Order Lumbar CT and X-ray at [facility] due to patient's pacemaker is not compatible with MRI machine [facility] Scheduling Phone#:[phone]-Schedule Lumbar Epidural Steroid Injection at L4-5 and [...] records from c ardiologist -Refill and continue [place] 5-325mg 4x/day as needed, for fill 10/16/21-Refill [...] left hip - Refill and continu e [place] 5-325mg 4x/day - Proceed with hip injection as scheduled at [facility]- If the hip injection is unsuccessful, plan for SI joint injection- Schedule annual physical therapy - Have cardiology records faxed to [facility] - Follow up with [facility] in one [...] Dr. North about Bel[place]uca- Refill and continue [place] 5-325mg, increased to 4x/day - Will order bilateral SI joint injection - Schedule physical therapy - Follow up with [facility] in one month 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, lumbar region Order bilateral hip X-ray at [facility] Related to Pain in left hip -Refill and continue [place] 5/325mg up to 3x/day as needed, for fill on 07/13/21-Refill and continue Tizanidine 4mg as prescribed -Schedule sacroiliac joint steroid injection once it is OK with patrol deputy sheriff-Schedule annual physical therapy evaluation-Follow up in 4 weeks via telehealth Related to Other intervertebral disc degeneration, lumbar region Lifestyle education regarding di et Related to Body mass index [BMI] 37.0-37.9, adult Same plan of care as statement for above diagnosis, no changes 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 via telehealth -- ROM warning given-Schedule sacroiliac joint injection when able, okay with patrol deputy sheriff -Schedule Physical Therapy in combination with injection/in [...] -Continue Tizanidine 4mg as needed-Refill and continue [place] 5-325mg, 3x/day as needed for severe pain, [...] for above diagnosis, no changes Related to assisted (current) use of opiate analgesic Lifestyle education regarding di et Related to Body mass index [BMI] 37.0-37.9, adult Same plan of care as statement for above diagnosis, no changes Related to Pain in left hip Same plan of care as statement for above diagnosis, no changes 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, lumbosacr region -Continue Tizanidine as prescribed-Prescribe [place] 5mg up to 3x/day-Discuss possible injections in the future with [facility] -Follow up with provider in 4 [...] steroid injection after lumbar epidural steroid injection-Continue [place] 5mg up to 3x/day as needed with [...] as prescribed, for fill today-Refill and continue [place] 5-325mg, for fill today-Refill and continue [place] 750mcg, for fill on 01/08-Continue MiraLax as needed for constipation -Schedule Lumbar Epidural Steroid injection at L3-4-Follow up in one month 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, lumbar region -Continue Tizanidine 4mg as prescribed-Refill and continue [place] 750mcg as prescribed -Refill and continue [place] 7.5-848li-Lpld orthopedics records to [facility]-Follow up in 2 weeks via telehealth, [...] on 12/02-Continue with orthopedics for shoulder injury-Refill [place] 7.5-325mg, up to 2x/day, #28 for 2 weeks-Prescribed Buprenorphine 2mg, 2x/day-Follow up in 2 weeks 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, lumbar region -Refill [place] 5-325m g up to 2x/day-Refill Tizanidine 4mg-Refill [...] Related to Pain in left hip -Refill [place] 5-325m g, 2x/day, #70 for one month [...] on 09/03-Ordered Lumbar Epidural Steroid Injection at [facility] Tizanidine 4mg -Refill [place] 5-325mg up to 3x/day, #70 for one month-Refill and increase Bel[place] 450mcg 2x/day-Follow up in one month via telehealth 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, lumbar region -Schedule repeat estefani ateral SI joint injections if sufficient pain relief is achieved Related to Pain in right hip -Continue with SI quentin int injections on 08/09-Continue [place] 5-325mg up to 3x/day, cut back when [...] for above diagnosis, no changes Related to assisted (current) use of opiate analgesic - refill [place] 5-325 mg, up to 3x/day for fill [...] Related to Radiculopathy, lumbar region - Refill [place] 5-325 mg, up to 3x/day for fill [...] stenosis, lumbar region with neurogenic claudication -Refill [place] 5-325m g, up to 3x/day-Continue Tizanidine-Schedule BL [...] right shoulder - Refill and continu e [place] 5-325 take 1-3 tablets/day, #70 for 30 [...] back pain. He had surgical consult with [facility] on 12/27/23 and reports [...] L hip painDiscussed sending a referral to [facility]. Patient agreed. Sent referral 08/06/24. Patient states he has been busy following up about his heart so he has been unable to follow up. Encouraged to follow up with them if he continues to have hip pain following injection. Mental Status Date Cognitive Assessment Orientation - [place] ed to time, place, person, situation. Patient Care Teams Name Effective Dates (start - stop) Status Members No Information
[2024-11-02] VITALS (29 sets, daily range): BP systolic 112–161; BP diastolic 47–115; PULSE 89–100; RESP 20–32; TEMP 36.1–36.6; O2SAT 84–98
--- OUTSIDE RECORDS SUMMARY | 2024-11-02 15:11 | XMS_ITS | Encounter Summary ---
Author Organization [facility] Address [address] [place] [address] Care Team Providers Care Stamp Mounter Name Role Phone Dixon Carson MD Primary Care Provider Unavailable Mingo Aldana MD Primary Car e Provider HermanShahida APRN PRODUCT SAFETY TEST ENGINEER Primary Care Provi ford Unavailable Herman, Shahida Cummings APRN PRODUCT SAFETY TEST ENGINEER Unavailable Un available Herman, Shahida Cummings APRN PRODUCT SAFETY TEST ENGINEER Unavailable Un available Carolynn Ramon RN Unavailable [phone] Augustine Callaway MD Unavailable Brady Lion MD Unavailable Un available Nima FranceC Unavailable [phone] Camille Chandler PA-C Unavailable [phone] Anabela Barakat APRN PRODUCT SAFETY TEST ENGINEER Unavailable Nmia FranceC Unavailable [phone] Basilio Morillo DO Unavailable [phone] Fawad York MD Unavailable [phone] Roopa Almonte MD Unavailable [phone] Augustine Callaway MD Unavailable Maryse Burton PA-C Unavailable Marquita Starkey MD Unavailable [phone] Roopa Almonte MD Unavailable [phone] Griffin Joshi MD Unavailable Rina Magallon RN Unavailable [phone] Paula Reza MD Primary Care Provider UnavailGriffin Youssef MD Unavailable Roopa Almonte MD Unavailable [phone] MarciaBasilio win Unavailable Lydia Bernstein PA-C Unavailable Rosa Maria Love Unavailable [phone] Augustine Callaway MD Unavailable Paula Reza MD Unavailable Unavailable Kerethi Miner APRN PRODUCT SAFETY TEST ENGINEER Unavailable Herman, Shahida Cummings APRN PRODUCT SAFETY TEST ENGINEER Unavailable Un available Porsha Michaels APRN PRODUCT SAFETY TEST ENGINEER Unavailable [phone] Paula Reza MD Unavailable Unavailable HermanShahida huerta APRN PRODUCT SAFETY TEST ENGINEER Unavailable Un available Daylin Ludwig Unavailable [phone] Laurel Velasquez MD Unavailable [phone] Daylin Ludwig Unavailable [phone] Paula Reza MD Unavailable Unavailable Porsha Michaels APRN PRODUCT SAFETY TEST ENGINEER Unavailable [phone] Laurel Velasquez MD Unavailable [phone] Shahida Sutton APRN PRODUCT SAFETY TEST ENGINEER Unavailable Un available Marilin Montaño PRODUCT SAFETY TEST ENGINEER Unavailable Esha Dewitt MD Unavailable [phone] Heather Mosquera MD Unavailable [phone] Paula Reza MD Unavailable Unavailable Esha Dewitt MD Unavailable [phone] Valdo Escamilla PA-C Unavailable [phone] Nohelia Abarca PA-C Unavailable [phone] Heather Mosquera MD Unavailable [phone] Fawad York MD Unavailable [phone] Reason for Visit * Reason Onset Date Comments MyChart Communication 06/12/2006 Encounter Details Date Type Department Care Team (Latest Contact Info) Description 06/12/[address] [address] Dixon Carson MD XXX HOSPITALIST/ED DOCTOR XXX MyChart Communication Social History Tobacco Use Types Packs/Day Years Used Date Smoking Tobacco: Every Day Cigarettes 0.5 25 Pipe Cigars Comments:social smoker Alcohol Use Standard Drinks/Week Comments Yes 0 (1 standard drink = 0.6 oz pur e alcohol) 2 drinks/ week Sex and Gender Information Value Date Recorded Sex Assigned at Male 09/20/2020 8:37 AM CDT 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 Gender Identity Male 09/20/2020 8:37 AM CDT [...] Out COVID-19 02/15/2020 02/15/2020 02/16/2020 2:32 PM MOLD REPAIRER Rule Out COVID-19 01/05/2021 01/05/2021 01/06/2021 12:57 PM CDT ESBL 01/05/2021 01/05/2021 Rule Out COVID-19 06/30/2021 06/30/2021 07/01/2021 9:34 AM CDT Rule Out COVID-19 07/25/2021 07/25/2021 07/25/2021 8:02 PM CDT documented as of this encounter Care Teams Stamp Mounter Relationship Specialty Start Date End Date Dixon Carson MD PCP - General 08/10/03 07/21/09 Mingo Aldana MD PCP - General Family Practice 07/22/09 07/12/14 Shahida Sutton APRN PRODUCT SAFETY TEST ENGINEER PCP - General Nurse Practitioner 08/17/14 08/04/21 Shahida Sutton APRN PRODUCT SAFETY TEST ENGINEER PCP - Assigned PCP 07/12/14 05/07/18 Paula Reza MD PCP - General Internal Medicine 08/05/21 Shahida Sutton APRN PRODUCT SAFETY TEST ENGINEER Assigned PCP 07/12/14 09/30/21 Carolynn Ramon, KASIE Personal Advocate & Liaison (PAL) 12/17/18 08/07/21 [place] [address] [place] [address] Assigned Musculoskeletal Provider 12/26/19 08/21/20 Brady Lion MD Assigned Heart and Vascular Provider 12/26/19 08/14/20 Nima France PA-C [address] [facility] [address] [place] [address] Assigned Surgical Provider 05/19/20 08/21/20 Camille Chandler PA-C [address] [facility] [address] [place], [place] [address] Assigned Neuroscience Provider 05/19/20 09/14/20 Anabela Barakat APRN PRODUCT SAFETY TEST ENGINEER [address] [place] [address] Assigned Heart and Vascular Provider 08/15/20 08/05/21 Nima France PA-C [address] [facility] [address] [place] [address] Assigned Musculoskeletal Provider 08/22/20 11/13/20 [place] [address] [place] [address] Assigned Musculoskeletal Provider 11/14/20 12/04/20 Fawad York MD [address] [place] [address] Assigned Musculoskeletal Provider 12/05/20 02/05/21 Roopa Almonte MD [address] [facility] [address] [place] [address] Endocrinology, Diabetes, and Metabolism 01/19/21 [place] [address] [facility] [address] [place] [address] Assigned Musculoskeletal Provider 02/06/21 09/16/21 Maryse Burton PA-C [address] [place] [address] Physician Spacecraft Systems Engineer Dermatology 04/14/21 Marquita Starkey MD [address] [facility] [address] [place] [address] Internal Medicine 05/06/21 05/06/21 Roopa Almonte MD [address] [address] Hospitalist Endocrinology, Diabetes, and Metabolism 05/30/21 Griffin Joshi MD [address] [facility] [address] [place] [address] Cardiovascular Disease 07/25/21 Rina Magallon, RN Lead [facility] Hosp[facility] 07/29/21 07/11/22 Griffin Joshi MD [address] [facility] [address] [place] [address] Assigned Heart and Vascular Provider 08/06/21 10/07/21 Roopa Almonte MD [address] [place], [place] [address] Assigned Endocrinology Provider 09/10/21 02/24/24 [place] [address] [facility] [place] [address] Assigned Musculoskeletal Provider 09/17/21 10/14/21 Lydia Bernstein PA-C [address] [place], [place] [address] Assigned PCP 10/01/21 10/21/21 Rosa Maria Love W Community Health Worker 10/06/21 [place] [address] [place] [address] Assigned Musculoskeletal Provider 10/15/21 04/26/23 Paula Reza MD INACTIVE IN [place] 02/02/2024 Assigned PCP 10/22/21 12/23/21 Keerthi Miner APRN PRODUCT SAFETY TEST ENGINEER [address] [place] [address] Assigned Heart and Vascular Provider 10/08/21 02/10/22 Shahida Sutton, DUANE PRODUCT SAFETY TEST ENGINEER Assigned PCP 12/24/21 03/24/22 Porsha Michaesl APRN PRODUCT SAFETY TEST ENGINEER [address] [place] [address] Assigned Heart and Vascular Provider 02/11/22 05/12/22 Paula Reza MD [place]CTIVE IN [place] 02/02/2024 Assigned PCP 03/25/22 04/07/22 Shahida Sutton, DUANE PRODUCT SAFETY TEST ENGINEER [address] [place] [address] Assigned PCP 04/08/22 06/30/22 Daylin Ludwig EP [facility] [address] [place] [address] Cardiac Rehabilitation Therapist 05/16/23 Laurel Velasquez MD [address] [place] [address] Assigned Heart and Vascular Provider 05/13/22 06/30/22 Daylin Ludwig EP [facility] [address] [place] [address] Cardiac Rehabilitation Therapist 06/08/22 06/09/23 Paula Reza MD INACTIVE IN [place] 02/02/2024 Assigned PCP 07/01/22 07/07/22 Porsha Michaels APRN PRODUCT SAFETY TEST ENGINEER [address] [place] [address] Assigned Heart and Vascular Provider 07/01/22 07/07/22 Laurel Velasquez MD [address] [place] [address] Assigned Heart and Vascular Provider 07/08/22 08/04/22 Shahida Sutton APRN PRODUCT SAFETY TEST ENGINEER Assigned PCP 07/08/22 09/08/22 Marilin Montaño, PRODUCT SAFETY TEST ENGINEER [address] [place] [address] Assigned Heart and Vascular Provider 08/05/22 02/24/24 Esha Dewitt MD [address] [place] [address] [id number] Gastroenterology 09/06/22 Heather Mosquera MD [address] [place] [address] Internal Medicine 09/06/22 Paula Reza MD INACTIVE IN [place] 02/02/2024 Assigned PCP 09/09/22 01/05/23 Esha Dewitt MD [address] [place] [address] [address] [place] [address] Assigned Gastroenterology Provider 09/23/22 04/26/24 Valdo Escamilla PA-C [address] [place] [address] Assigned Neuroscience Provider 09/30/22 04/26/24 Nohelia Abarca PA-C [address] [place] [id number] Physician Spacecraft Systems Engineer Gastroenterology 10/03/22 Heather Mosquera MD [address] [place] [address] Assigned PCP 01/06/23 Fawad York MD [address] [place], [place] [address] Assigned Musculoskeletal Provider 04/27/23 06/25/23 documented as of this encounter
--- OUTSIDE RECORDS SUMMARY | 2024-11-02 15:11 | XMS_ITS | Encounter Summary ---
Author Organization [facility] Address [address] [place] [address] Care Team Providers Care Camera Supervisor Name Role Phone Shahida Sutton APRN DRAIN TILE MACHINE OPERATOR Primary Care Provi ford Unavailable Shahida Sutton APRN DRAIN TILE MACHINE OPERATOR Unavailable Un available Carolynn Ramon RN Unavailable [phone] Augustine Callaway MD Unavailable Brady Lion MD Unavailable Un available Nima Frnace-C Unavailable [phone] Camille Chandler PA-C Unavailable [phone] Anabela Barakat APRN DRAIN TILE MACHINE OPERATOR Unavailable Nima France PA-C Unavailable [phone] Basilio Morillo DO Unavailable Fawad York MD Unavailable Roopa Almonte MD Unavailable Augustine Callaway MD Unavailable Maryse Burton PA-C Unavailable [phone] Marquita Starkey MD Unavailable [phone] Roopa Almonte MD Unavailable [phone] Griffin Joshi MD Unavailable + Rina Magallon RN Unavailable [phone] Paula Reza MD Primary Care Provider UnavailGriffin Youssef MD Unavailable Roopa Almonte MD Unavailable [phone] [facility] Unavailable Lydia Bernstein-C Unavailable Rosa Maria Love Unavailable [phone] Augustine Callaway MD Unavailable Paula Reza MD Unavailable Unavailable Keerthi Miner APRN DRAIN TILE MACHINE OPERATOR Unavailable [phone] Herman, Shahida Cummings APRN DRAIN TILE MACHINE OPERATOR Unavailable Un available Porsha Michaels APRN DRAIN TILE MACHINE OPERATOR Unavailable + Paula Reza MD Unavailable Unavailable Herman, Shahida Cummings APRN DRAIN TILE MACHINE OPERATOR Unavailable Un available Daylin Ludwig Unavailable [phone] Laurel Velasquez MD Unavailable [phone] Daylin Ludwig Unavailable [phone] Paula Reza MD Unavailable Unavailable Porsha Michaels APRN DRAIN TILE MACHINE OPERATOR Unavailable + Laurel Velasquez MD Unavailable [phone] HermanShahida huerta APRN DRAIN TILE MACHINE OPERATOR Unavailable Un available Marilin Montaño DRAIN TILE MACHINE OPERATOR Unavailable [phone] Esha Dewitt MD Unavailable + [phone] Heather Mosquera MD Unavailable [phone] Paula Reza MD Unavailable Unavailable Esha Dewitt MD Unavailable [phone] Valdo Escamilla PA-C Unavailable Nohelia Abarca PA-C Unavailable [phone] Heather Mosquera MD Unavailable [phone] Fwaad York MD Unavailable [phone] Encounter Details Date Type Department Care Team (Late st Contact Info) Description 06/29/2020 MyC Medical Advice [address] [address] Hiral Curran, POWER PLANT ASSISTANT Social History Tobacco Use Types Packs/Day Years [...] AM CDT 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 Gender Identity Male 09/20/2020 8:37 AM CDT Sexual Orientation Straight 09/20/2020 8: 37 AM CDT 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 Not on file Not on file Not on jabier e COVID-19 Exposure Response Date Recorded In the [...] documented as of this encounter Care Teams Camera Supervisor Relationship Specialty Start Date End Date Shahida Sutton APRN DRAIN TILE MACHINE OPERATOR PCP - General Nurse Practitioner 08/17/14 08/04/21 Paula Reza MD PCP - General Internal Medicine 08/05/21 Shahida Sutton APRN DRAIN TILE MACHINE OPERATOR Assigned PCP 07/12/14 09/30/21 Carolynn Ramon RN Personal Advocate & Liaison (PAL) 12/17/18 08/07/21 [place] [address] [place] [address] Assigned Musculoskeletal Provider 12/26/19 08/21/20 Brady Lion MD Assigned Heart and Vascular Provider 12/26/19 08/14/20 Nima France PA-C [address] [place] [address] Assigned Surgical Provider 05/19/20 08/21/20 Camille Chandler PA-C [address] [place] [address] Assigned Neuroscience Provider 05/19/20 09/14/20 Anabela Barakat APRN DRAIN TILE MACHINE OPERATOR [address] [place] [address] Assigned Heart and Vascular Provider 08/15/20 08/05/21 Nima France PA-C [address] [place] [address] Assigned Musculoskeletal Provider 08/22/20 11/13/20 [place] [address] [facility] [place] [address] Assigned Musculoskeletal Provider 11/14/20 12/04/20 Fawad York MD [address] [place] [address] Assigned Musculoskeletal Provider 12/05/20 02/05/21 Roopa Almonte MD [address] [facility] 200 [place] [address] Endocrinology, Diabetes, and Metabolism 01/19/21 [place] [address] [facility] [address] [place] [address] Assigned Musculoskeletal Provider 02/06/21 09/16/21 Maryse Burton, PA-C [address] [place] [address] Physician Vice President Corporate Communications Dermatology 04/14/21 Marquita Starkey MD [address] [facility] 200 [place] [address] Internal Medicine 05/06/21 05/06/21 Roopa Almonte MD [address] [facility] [address] [place] [address] Hospitalist Endocrinology, Diabetes, and Metabolism 05/30/21 Griffin Joshi MD [address] [facility] [address] [place] [address] Cardiovascular Disease 07/25/21 Rina Magallon, RN Lead Terrazzo Finisher Helper 07/29/21 07/11/22 Griffin Joshi MD [address] [place] [address] Assigned Heart and Vascular Provider 08/06/21 10/07/21 Roopa Almonte MD [address] [facility] [address] [place], [place] [address] Assigned Endocrinology Provider 09/10/21 02/24/24 [place] [address] [place] [address] Assigned Musculoskeletal Provider 09/17/21 10/14/21 Lydia Bernstein, TRACEY [address] [place], [place] [address] Assigned PCP 10/01/21 10/21/21 Rosa Maria Love Cristina Community Health Worker 10/06/21 07/11/22 [place] [address] [address] [facility] [address] [place] [address] Assigned Musculoskeletal Provider 10/15/21 04/26/23 Paula Reza MD [place]CTIVE IN [place] 02/02/2024 Assigned PCP 10/22/21 12/23/21 Keerthi Miner APRN DRAIN TILE MACHINE OPERATOR [address] [place] [address] Assigned Heart and Vascular Provider 10/08/21 02/10/22 Shahida Sutton APRN DRAIN TILE MACHINE OPERATOR Assigned PCP 12/24/21 03/24/22 Porsha Michaels APRN DRAIN TILE MACHINE OPERATOR [address] [place] [address] Assigned Heart and Vascular Provider 02/11/22 05/12/22 Paula Reza MD [place]IVE IN [place] 02/02/2024 Assigned PCP 03/25/22 04/07/22 Shahida Sutton APRN DRAIN TILE MACHINE OPERATOR [address] [place] [address] Assigned PCP 04/08/22 06/30/22 Daylin Ludwig, EP [facility] [address] [place] [address] Cardiac Rehabilitation Therapist 05/16/23 Laurel Velasquez MD [address] [place] [address] Assigned Heart and Vascular Provider 05/13/22 06/30/22 Daylin Ludwig, EP [facility] [address] [place] [address] Cardiac Rehabilitation Therapist 06/08/22 06/09/23 Paula Reza MD [place]NACTIVE IN [place] 02/02/2024 Assigned PCP 07/01/22 07/07/22 Porsha Michaels APRN DRAIN TILE MACHINE OPERATOR [address] [place] [address] Assigned Heart and Vascular Provider 07/01/22 07/07/22 Laurel Velasquez MD [address] [place] [address] Assigned Heart and Vascular Provider 07/08/22 08/04/22 Shahida Sutton, RAIL WALKER DRAIN TILE MACHINE OPERATOR Assigned PCP 07/08/22 09/08/22 Marilin Montaño, DRAIN TILE MACHINE OPERATOR [address] [place], [place] [address] Assigned Heart and Vascular Provider 08/05/22 02/24/24 Esha Dewitt MD [address] [facility] 36 [place] [address] Gastroenterology 09/06/22 Heather Mosquera MD [address] [place] [address] Internal Medicine 09/06/22 Paula Reza MD [place]IVE IN [place] 02/02/2024 Assigned PCP 09/09/22 01/05/23 Esha Dewitt MD [address] [facility] 36 [place] [address] Assigned Gastroenterology Provider 09/23/22 04/26/24 Valdo Escamilla PA-C [address] [place] [address] Assigned Neuroscience Provider 09/30/22 04/26/24 Nohelia Abarca PA-C [address] [place] [address] Physician Vice President Corporate Communications Gastroenterology 10/03/22 Heather Mosquera MD [address] [place] [address] Assigned PCP 01/06/23 Fawad York MD [address] [place], [place] [address] Assigned Musculoskeletal Provider 04/27/23 06/25/23 documented as of this encounter
--- OUTSIDE RECORDS SUMMARY | 2024-11-02 15:11 | XMS_ITS | Encounter Summary ---
Author Organization [facility] Address [address] [place] [address] Care Team Providers Care Business Development Sales Executive Name Role Phone Dixon Carson MD Primary Care Provider Unavailable Mingo Aldana MD Primary Car e Provider HermanShahida APRN OUTREACH LIBRARIAN Primary Care Provi ford Unavailable Herman, Shahida Cummings APRN OUTREACH LIBRARIAN Unavailable Un available Herman, Shahida Cummings APRN OUTREACH LIBRARIAN Unavailable Un available Carolynn Ramon RN Unavailable [phone] Augustine Callaway MD Unavailable Brady Lion MD Unavailable Un available Nima FranceC Unavailable [phone] Camille Chandler PA-C Unavailable [phone] Anabela Barakat APRN OUTREACH LIBRARIAN Unavailable Nima FranceC Unavailable [phone] Basilio Morillo DO Unavailable [phone] Fawad York MD Unavailable [phone] Roopa Almonte MD Unavailable [phone] Augustine Callaway MD Unavailable Maryse Burton PA-C Unavailable Marquita Starkey MD Unavailable [phone] Roopa Almonte MD Unavailable [phone] Griffin Joshi MD Unavailable Rina Magallon RN Unavailable [phone] Paula Reza MD Primary Care Provider UnavailGriffin Youssef MD Unavailable Roopa Almonte MD Unavailable [phone] MarciaBasilio win Unavailable Lydia Bernstein PA-C Unavailable Rosa Maria Love Unavailable [phone] Augustine Callaway MD Unavailable Paula Reza MD Unavailable Unavailable Keerthi Miner APRN OUTREACH LIBRARIAN Unavailable Herman, Shahida Cummings APRN OUTREACH LIBRARIAN Unavailable Un available Porsha Michaels APRN OUTREACH LIBRARIAN Unavailable [phone] Paula Reza MD Unavailable Unavailable HermanShahida huerta APRN OUTREACH LIBRARIAN Unavailable Un available Daylin Ludwig Unavailable [phone] Laurel Velasquez MD Unavailable [phone] Daylin Ludwig Unavailable [phone] Paula Reza MD Unavailable Unavailable Porsha Michaels APRN OUTREACH LIBRARIAN Unavailable [phone] Laurel Velasquez MD Unavailable [phone] Shahida Sutton APRN OUTREACH LIBRARIAN Unavailable Un available Marilin Montaño OUTREACH LIBRARIAN Unavailable Esha Dewitt MD Unavailable [phone] Heather Mosquera MD Unavailable Paula Reza MD Unavailable Unavailable Esha Dewitt MD Unavailable [phone] Valdo Escamilla PA-C Unavailable [phone] Nohelia Abarca PA-C Unavailable [phone] Heather Mosquera MD Unavailable [phone] Fawad York MD Unavailable [phone] Encounter Details Date Type Department Care Team (Late st Contact Info) Description 05/01/2007 [facility] [place] [address] [id number] Dixon Carson MD XXX HOSPITALIST/ED DOCTOR XXX HEADACHE (Primary Dx) Social History Tobacco Use [...] AM CDT Legal 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 Gender Identity Male 09/20/2020 8:37 AM CDT Sexual Orientation Straight 09/20/2020 8: 37 AM CDT documented as of this encounter Miscellaneous Notes * Telephone Encounter - Dixon Carson - 05/01/2007 4:28 PM CST Understood, will rx vicodin HASING ASSOCIATE documented in this encounter Plan of Treatment Not on file documented as of this encounter Visit Diagnoses Diagnosis Headache(784.0)- Primary Headache documented in this encounter Additional Health Concerns Infection Onset Date Last Indicated Resolved Time Rule Out COVID-19 02/15/2020 02/15/2020 02/16/2020 2:32 PM PURCHASING ASSOCIATE Rule Out COVID-19 01/05/2021 01/05/2021 01/06/2021 12:57 PM CDT ESBL 01/05/2021 01/05/2021 Rule Out COVID-19 06/30/2021 06/30/2021 07/01/2021 9:34 AM CDT Rule Out COVID-19 07/25/2021 07/25/2021 07/25/2021 8:02 PM CDT documented as of this encounter Care Teams Business Development Sales Executive Relationship Specialty Start Date End Date Dixon Carson MD PCP - General 08/10/03 07/21/09 Mingo Aldana MD PCP - General Family Practice 07/22/09 07/12/14 Shahida Sutton APRN OUTREACH LIBRARIAN PCP - General Nurse Practitioner 08/17/14 08/04/21 Shahida Sutton APRN OUTREACH LIBRARIAN PCP - Assigned PCP 07/12/14 05/07/18 Paula Reza MD PCP - General Internal Medicine 08/05/21 Shahida Sutton APRN OUTREACH LIBRARIAN Assigned PCP 07/12/14 09/30/21 Carolynn Ramon RN Personal Advocate & Liaison (PAL) 12/17/18 08/07/21 [place] [address] [address] [place] [id number] Assigned Musculoskeletal Provider 12/26/19 08/21/20 Brady Lion MD Assigned Heart and Vascular Provider 12/26/19 08/14/20 Nima France PA-C [address] [place] [address] Assigned Surgical Provider 05/19/20 08/21/20 Camille Chandler PA-C [address] [facility] [address] [place], [place] [address] Assigned Neuroscience Provider 05/19/20 09/14/20 Anabela Barakat APRN OUTREACH LIBRARIAN [address] [place] [address] Assigned Heart and Vascular Provider 08/15/20 08/05/21 Nima France PA-C [address] [facility] [address] [place] [address] Assigned Musculoskeletal Provider 08/22/20 11/13/20 [place] [address] [place], [place] [address] Assigned Musculoskeletal Provider 11/14/20 12/04/20 Fawad York MD [address] [place] [address] Assigned Musculoskeletal Provider 12/05/20 02/05/21 Roopa Almonte MD [address] [facility] [address] [place] [address] Endocrinology, Diabetes, and Metabolism 01/19/21 [place] [address] [facility] [address] [place] [address] Assigned Musculoskeletal Provider 02/06/21 09/16/21 Maryse Burton PA-C [address] [place] [address] Physician Skein Winding Operator Dermatology 04/14/21 Marquita Starkey MD [address] [facility] [address] [place] [address] Internal Medicine 05/06/21 05/06/21 Roopa Almonte MD [address] [facility] [address] [place] [address] Hospitalist Endocrinology, Diabetes, and Metabolism 05/30/21 Griffin Joshi MD [address] [place] [address] Cardiovascular Disease 07/25/21 Rina Magallon RN Lead Reimbursement Liaison 07/29/21 07/11/22 Griffin Joshi MD [address] [place] [address] Assigned Heart and Vascular Provider 08/06/21 10/07/21 Roopa Almonte MD [address] [place] [address] Assigned Endocrinology Provider 09/10/21 02/24/24 [place] [address] [facility] [place] [address] Assigned Musculoskeletal Provider 09/17/21 10/14/21 Lydia Bernstein PA-C [address] [place] [id number] Assigned PCP 10/01/21 10/21/21 Shersophiealison Rosa Maria, W Community Health Worker 10/06/21 [place] [address] [place] [address] Assigned Musculoskeletal Provider 10/15/21 04/26/23 Paula Reza MD [place] IN [place] 02/02/2024 Assigned PCP 10/22/21 12/23/21 Keerthi Miner APRN OUTREACH LIBRARIAN [address] [place] [address] Assigned Heart and Vascular Provider 10/08/21 02/10/22 Shahida Sutton APRN OUTREACH LIBRARIAN Assigned PCP 12/24/21 03/24/22 Porsha Michaels APRN OUTREACH LIBRARIAN [address] [place] [address] Assigned Heart and Vascular Provider 02/11/22 05/12/22 Paula Reza MD [place] 02/02/2024 Assigned PCP 03/25/22 04/07/22 Shahida Sutton APRN OUTREACH LIBRARIAN [address] [place] [address] Assigned PCP 04/08/22 06/30/22 Daylin Ludwig EP [facility] [address] [place] [address] Cardiac Rehabilitation Therapist 05/16/23 Laurel Velasquez MD [address] [place] [address] Assigned Heart and Vascular Provider 05/13/22 06/30/22 Daylin Ludwig EP [facility] [address] [place] [address] Cardiac Rehabilitation Therapist 06/08/22 06/09/23 Paula Reza MD [place] 02/02/2024 Assigned PCP 07/01/22 07/07/22 Porsha Michaels APRN OUTREACH LIBRARIAN [address] [place] [address] Assigned Heart and Vascular Provider 07/01/22 07/07/22 Laurel Velasquez MD [address] [place] [address] Assigned Heart and Vascular Provider 07/08/22 08/04/22 Shahida Sutton APRN OUTREACH LIBRARIAN Assigned PCP 07/08/22 09/08/22 Marilin Montaño, OUTREACH LIBRARIAN [address] [place] [address] Assigned Heart and Vascular Provider 08/05/22 02/24/24 Esha Dewitt MD [address] [place] [address] [address] [place], [place] [address] Gastroenterology 09/06/22 Heather Mosquera MD [address] [place] [address] Internal Medicine 09/06/22 Paula Reza MD INACTIVE IN [place] 02/02/2024 Assigned PCP 09/09/22 01/05/23 sEha Dewitt MD [address] [facility] 36 [place] [address] Assigned Gastroenterology Provider 09/23/22 04/26/24 Valdo Escamilla PA-C [address] [place] [address] Assigned Neuroscience Provider 09/30/22 04/26/24 Nohelia Abarca PA-C [address] [place] [address] Physician Skein Winding Operator Gastroenterology 10/03/22 Heather Mosquera MD [address] [place] [address] Assigned PCP 01/06/23 Fawad York MD [address] [place] [address] Assigned Musculoskeletal Provider 04/27/23 06/25/23 documented as of this encounter
--- OUTSIDE RECORDS SUMMARY | 2024-11-02 15:11 | XMS_ITS | Encounter Summary ---
Author Organization [facility] Address [address] [place] [address] Care Team Providers Care Gandy Dancer Name Role Phone Shahida Sutton TEXTILE SCREEN PRINTER CHIEF LENDING OFFICER Primary Care Provi ford Unavailable Shahida Sutton APRN CHIEF LENDING OFFICER Unavailable Un available Carolynn Ramon RN Unavailable [phone] Anabela Barakat TEXTILE SCREEN PRINTER CHIEF LENDING OFFICER Unavailable Fawad York MD Unavailable [phone] Roopa Almonte MD Unavailable [phone] Augustine Callaway MD Unavailable Maryse Burton PA-C Unavailable [phone] Marquita Starkey MD Unavailable [phone] Roopa Almonte MD Unavailable [phone] Griffin Joshi MD Unavailable Rina Magallon RN Unavailable [phone] Paula Reza MD Primary Care Provider UnavailGriffin Youssef MD Unavailable Roopa Almonte MD Unavailable [phone] Basilio Morillo DO Unavailable Lydia Bernsteni PA-C Unavailable Rosa Maria Love Unavailable Augustine Callaway MD Unavailable Paula Reza MD Unavailable Unavailable Keerthi Miner APRN CHIEF LENDING OFFICER Unavailable [phone] HermanShahida huerta TEXTILE SCREEN PRINTER CHIEF LENDING OFFICER Unavailable Un available Porsha Michaels APRN CHIEF LENDING OFFICER Unavailable [phone] Paula Reza MD Unavailable Unavailable Herman, Shahida Cummings APRN CHIEF LENDING OFFICER Unavailable Un available Daylin Ludwig Unavailable [phone] Laurel Velasquez MD Unavailable [phone] Daylin uLdwig Unavailable [phone] Paula Reza MD Unavailable Unavailable Porsha Michaels APRN CHIEF LENDING OFFICER Unavailable [phone] Laurel Velasquez MD Unavailable [phone] HermanShahida huerta APRN CHIEF LENDING OFFICER Unavailable Un available Marilin Montaño CHIEF LENDING OFFICER Unavailable [phone] Esha Dewitt MD Unavailable [phone] Heather Mosquera MD Unavailable [phone] Paula Reza MD Unavailable Unavailable Esha Dewitt MD Unavailable [phone] Valdo Escamilla PA-C Unavailable [phone] Nohelia Abarca PA-C Unavailable [phone] Heather Mosquera MD Unavailable [phone] Fawad York MD Unavailable [phone] Reason for Visit * Reason Onset Date Comments Patient Request for Note/Letter 01/10/2021 KASIE MONTGOMERY Encounter Details Date Type Department Care Team (Late st Contact Info) Description 01/10/2021 [facility] [address] [place] [phone] Shahida Sutton APRN CHIEF LENDING OFFICER Patient Request for Note/Letter (KASIE MONTGOMERY ) [...] AM CDT Legal Sex Male 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 No / Unsure 01/11/2021 9:34 AM SHORTHAND REPORTER documented as of this encounter Miscellaneous Notes * Telephone Encounter - Carolynn Ramon RN - 01/10/2021 1:50 PM SHORTHAND REPORTER RN received call from patient - unable to see letter in my chart from pcp on 01/10/2021 RN will attempt to resend letter and see if patient is able to see letter, advised that he will need to sweet pickled fruit maker or we can fax Patient states this is a problem on your end RN advised she is able to see letter and should be viewable Nathalia Watson Nurse, PAL (Patient Advocate Liason) [facility] [phone] THAND REPORTER * Telephone Encounter - Carolynn Ramon RN - 01/10/2021 12:33 PM SHORTHAND REPORTER See my chart Nathalia Watson Nurse, PAL (Patient Advocate Liason) [facility] [phone] THAND REPORTER documented in this encounter Plan of Treatment [...] documented as of this encounter Care Teams Gandy Dancer Relationship Specialty Start Date End Date Shahida Sutton APRN CHIEF LENDING OFFICER PCP - General Nurse Practitioner 08/17/14 08/04/21 Paula Reza MD PCP - General Internal Medicine 08/05/21 Shahida Sutton APRN CHIEF LENDING OFFICER Assigned PCP 07/12/14 09/30/21 Carolynn Ramon RN Personal Advocate & Liaison (PAL) 12/17/18 08/07/21 Anabela Barakat APRN CHIEF LENDING OFFICER [address] [place] [address] Assigned Heart and Vascular Provider 08/15/20 08/05/21 Fawad York MD [address] [place], [place] [address] Assigned Musculoskeletal Provider 12/05/20 02/05/21 Roopa Almonte MD [address] [facility] [address] [place] [address] Endocrinology, Diabetes, and Metabolism 01/19/21 [place] [address] [facility] [address] [place] [address] Assigned Musculoskeletal Provider 02/06/21 09/16/21 Maryse Burton PA-C [address] [facility] [address] Physician Special Library Librarian Dermatology 04/14/21 Marquita Starkey MD [address] [facility] [address] [place] [address] Internal Medicine 05/06/21 05/06/21 Roopa Almonte MD [address] [facility] [address] [place] [address] Hospitalist Endocrinology, Diabetes, and Metabolism 05/30/21 Griffin Joshi MD [address] [facility] [address] [place] [address] Cardiovascular Disease 07/25/21 Rina Magallon, RN Lead Electronic Console Display Operator 07/29/21 07/11/22 Griffin Joshi MD [address] [facility] [address] [place] [address] Assigned Heart and Vascular Provider 08/06/21 10/07/21 Roopa Almonte MD [address] [facility] 200 [place], [place] [address] Assigned Endocrinology Provider 09/10/21 02/24/24 [place] [address] [facility] [place] [address] Assigned Musculoskeletal Provider 09/17/21 10/14/21 Lydia Bernstein PA-C [address] [place] [address] Assigned PCP 10/01/21 10/21/21 Rosa Maria Love Cristina Community Health Worker 10/06/21 07/11/22 [place] [address] [place] [address] Assigned Musculoskeletal Provider 10/15/21 04/26/23 Paula Reza MD INACTIVE IN [place] 02/02/2024 Assigned PCP 10/22/21 12/23/21 Keerthi Miner, TEXTILE SCREEN PRINTER CHIEF LENDING OFFICER [address] [place] [address] Assigned Heart and Vascular Provider 10/08/21 02/10/22 Shahida Sutton, TEXTILE SCREEN PRINTER CHIEF LENDING OFFICER Assigned PCP 12/24/21 03/24/22 Porsha Michaels APRN CHIEF LENDING OFFICER [address] [place] [address] Assigned Heart and Vascular Provider 02/11/22 05/12/22 Paula Reza MD INACTIVE IN [place] 02/02/2024 Assigned PCP 03/25/22 04/07/22 Shahida Sutton, TEXTILE SCREEN PRINTER CHIEF LENDING OFFICER [address] [place] [address] Assigned PCP 04/08/22 06/30/22 Daylin Ludwig, EP [facility] [address] [place], [place] [address] Cardiac Rehabilitation Therapist 05/16/23 Laurel Velasquez MD [address] [place] [address] Assigned Heart and Vascular Provider 05/13/22 06/30/22 Daylin Ludwig, EP [facility] [address] [place] [address] Cardiac Rehabilitation Therapist 06/08/22 06/09/23 Paula Reza MD INACTIVE IN [place] 02/02/2024 Assigned PCP 07/01/22 07/07/22 Porsha Michaels APRN CHIEF LENDING OFFICER [address] [place] [address] Assigned Heart and Vascular Provider 07/01/22 07/07/22 Laurel Velasquez MD [address] [place] [place] [address] Assigned Heart and Vascular Provider 07/08/22 08/04/22 Shahida Sutton APRN CHIEF LENDING OFFICER Assigned PCP 07/08/22 09/08/22 Marilin Montaño, CHIEF LENDING OFFICER [address] [place] [address] Assigned Heart and Vascular Provider 08/05/22 02/24/24 Esha Dewitt MD [address] [place] [address] Gastroenterology 09/06/22 Heather Mosquera MD [address] [place] [address] Internal Medicine 09/06/22 Paula Reza MD I[place]CTIVE IN [place] 02/02/2024 Assigned PCP 09/09/22 01/05/23 Esha Dewitt MD [address] [facility] 36 [place] [address] Assigned Gastroenterology Provider 09/23/22 04/26/24 Valdo Escamilla PA-C [address] [place] [address] Assigned Neuroscience Provider 09/30/22 04/26/24 Nohelia Abarca PA-C [address] [place] [address] Physician Special Library Librarian Gastroenterology 10/03/22 Heather Mosquera MD [address] [place] [address] Assigned PCP 01/06/23 Fawad York MD [address] [place], [place] [address] Assigned Musculoskeletal Provider 04/27/23 06/25/23 documented as of this encounter
--- OUTSIDE RECORDS SUMMARY | 2024-11-02 15:11 | XMS_ITS | Encounter Summary ---
Author Organization [facility] Address [address] [place] [address] Care Team Providers Care Optical Assistant Name Role Phone Shahida Sutton FUSELAGE FRAMER PAPER BOX CUTTER Primary Care Provi ford Unavailable Shahida Sutton APRN PAPER BOX CUTTER Unavailable Un available Carolynn Ramon RN Unavailable [phone] Anabela Barakat FUSELAGE FRAMER PAPER BOX CUTTER Unavailable Fawad York MD Unavailable [phone] Roopa Almonte MD Unavailable [phone] Augustine Callaway MD Unavailable Maryse Burton PA-C Unavailable [phone] Marquita Starkey MD Unavailable [phone] Roopa Almonte MD Unavailable [phone] Griffin Joshi MD Unavailable Rina Magallon RN Unavailable [phone] Paula Reza MD Primary Care Provider UnavailGriffin Youssef MD Unavailable Roopa Almonte MD Unavailable [phone] Basilio Morillo DO Unavailable Lydia Bernstein PA-C Unavailable Rosa Maria Love Unavailable Augustine Callaway MD Unavailable Paula Reza MD Unavailable Unavailable Keerthi Miner APRN PAPER BOX CUTTER Unavailable [phone] HermanShahida FUSELAGE FRAMER PAPER BOX CUTTER Unavailable Un available Porsha Michaels APRN PAPER BOX CUTTER Unavailable [phone] Paula Reza MD Unavailable Unavailable Herman, Shahida Cummings APRN PAPER BOX CUTTER Unavailable Un available Daylin Ludwig Unavailable [phone] Laurel Velasquez MD Unavailable [phone] Daylin Ludwig Unavailable [phone] Paula Reza MD Unavailable Unavailable Porsha Michaels APRN PAPER BOX CUTTER Unavailable [phone] Laurel Velasquez MD Unavailable [phone] HermanShahida huerta APRN PAPER BOX CUTTER Unavailable Un available Marilin Montaño PAPER BOX CUTTER Unavailable [phone] Esha Dewitt MD Unavailable [phone] Heather Mosquera MD Unavailable [phone] Paula Reza MD Unavailable Unavailable Esha Dewitt MD Unavailable [phone] Valdo Escamilla PA-C Unavailable [phone] Nohelia Abarca PA-C Unavailable [phone] Heather Mosquera MD Unavailable [phone] Fawad York MD Unavailable [phone] Encounter Details Date Type Department Care Team (Late st Contact Info) Description 01/04/2021 [facility] [address] [address] Asuncion Olson Social History Tobacco Use Types [...] AM CDT 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 Gender Identity Male 09/20/2020 8:37 AM CDT Sexual Orientation Straight 09/20/2020 8: 37 AM CDT 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 Not on file [...] documented as of this encounter Care Teams Optical Assistant Relationship Specialty Start Date End Date Shahida Sutton APRN PAPER BOX CUTTER PCP - General Nurse Practitioner 08/17/14 08/04/21 Paula Reza MD PCP - General Internal Medicine 08/05/21 Shahida Sutton APRN PAPER BOX CUTTER Assigned PCP 07/12/14 09/30/21 Carolynn Ramon RN Personal Advocate & Liaison (PAL) 12/17/18 08/07/21 Anabela Barakat APRN CNP [address] [place] [address] Assigned Heart and Vascular Provider 08/15/20 08/05/21 Fawad York MD [address] [place] [address] Assigned Musculoskeletal Provider 12/05/20 02/05/21 Roopa Almonte MD [address] [facility] 200 [place] [address] Endocrinology, Diabetes, and Metabolism 01/19/21 [place] [address] [facility] [address] [place] [address] Assigned Musculoskeletal Provider 02/06/21 09/16/21 Maryse Burton PA-C [address] [place] [address] Physician Cabinet Mounter Dermatology 04/14/21 Marquita Starkey MD [address] [facility] [address] [place] [address] Internal Medicine 05/06/21 05/06/21 Roopa Almonte MD [address] [facility] [address] [place] [address] Hospitalist Endocrinology, Diabetes, and Metabolism 05/30/21 Griffin Joshi MD [address] [facility] [address] [place] [address] Cardiovascular Disease 07/25/21 Rina Magallon, RN Lead Tailercpa 07/29/21 07/11/22 Griffin Joshi MD [address] [place] [address] Assigned Heart and Vascular Provider 08/06/21 10/07/21 Roopa Almonte MD [address] [facility] [address] [place], [place] [address] Assigned Endocrinology Provider 09/10/21 02/24/24 [place] [address] [facility] [place] [address] Assigned Musculoskeletal Provider 09/17/21 10/14/21 Lydia Bernstein PA-C [address] [place] [address] Assigned PCP 10/01/21 10/21/21 Rosa Maria Love [facility] Community Health Worker 10/06/21 07/11/22 [place] [address] [facility] [address] [place] [address] Assigned Musculoskeletal Provider 10/15/21 04/26/23 Paula Reza MD INACTIVE IN [place] 02/02/2024 Assigned PCP 10/22/21 12/23/21 Keerthi Miner, FUSELAGE FRAMER PAPER BOX CUTTER [address] [place] [address] Assigned Heart and Vascular Provider 10/08/21 02/10/22 Shahida Sutton APRN PAPER BOX CUTTER Assigned PCP 12/24/21 03/24/22 Porsha Michaels APRN PAPER BOX CUTTER [address] [place] [address] Assigned Heart and Vascular Provider 02/11/22 05/12/22 Paula Reza MD [place]CTIVE IN [place] 02/02/2024 Assigned PCP 03/25/22 04/07/22 Shahida Sutton APRN PAPER BOX CUTTER [address] [place] [address] Assigned PCP 04/08/22 06/30/22 Daylin Ludwig, MIKI [facility] [address] [place] [address] Cardiac Rehabilitation Therapist 05/16/23 Laurel Velasquez MD [address] [place] [address] Assigned Heart and Vascular Provider 05/13/22 06/30/22 Daylin Ludwig, EP [facility] [address] [place] [address] Cardiac Rehabilitation Therapist 06/08/22 06/09/23 Paula Reza MD INACTIVE IN [place] 02/02/2024 Assigned PCP 07/01/22 07/07/22 Porsha Michaels APRN PAPER BOX CUTTER [address] [place] [address] Assigned Heart and Vascular Provider 07/01/22 07/07/22 Laurel Velasquez MD [address] [place] [address] Assigned Heart and Vascular Provider 07/08/22 08/04/22 Shahida Sutton, UDANE PAPER BOX CUTTER Assigned PCP 07/08/22 09/08/22 Marilin Montaño, PAPER BOX CUTTER [address] [place] [address] Assigned Heart and Vascular Provider 08/05/22 02/24/24 Esha Dewitt MD [address] [facility] 36 [place] [address] Gastroenterology 09/06/22 Heather Mosquera MD [address] [place] [address] Internal Medicine 09/06/22 Paula Reza MD [place]NACTIVE IN [place] 02/02/2024 Assigned PCP 09/09/22 01/05/23 Esha Dewitt MD [address] [facility] [address] [place] [address] Assigned Gastroenterology Provider 09/23/22 04/26/24 Valdo Escamilla PA-C [address] [place] [address] Assigned Neuroscience Provider 09/30/22 04/26/24 Nohelia Abarca PA-C [address] [place] [address] Physician Cabinet Mounter Gastroenterology 10/03/22 Heather Mosquera MD [address] [place] [address] Assigned PCP 01/06/23 Fawad York MD [address] [place], [place] [address] Assigned Musculoskeletal Provider 04/27/23 06/25/23 documented as of this encounter
--- OUTSIDE RECORDS SUMMARY | 2024-11-02 15:11 | XMS_ITS | Encounter Summary ---
Author Organization [facility] Address [address] [place] [address] Care Team Providers Care Presser Automatic Name Role Phone Dixon Carson MD Primary Care Provider Unavailable Mingo Aldana MD Primary Car e Provider HermanShahida APRN ENGRAVING PRESS OPERATOR Primary Care Provi ford Unavailable Herman, Shahida Cummings APRN ENGRAVING PRESS OPERATOR Unavailable Un available Herman, Shahida Cummings APRN ENGRAVING PRESS OPERATOR Unavailable Un available Carolynn Ramon RN Unavailable [phone] Augustine Callaway MD Unavailable Brady Lion MD Unavailable Un available Nima FranceC Unavailable [phone] Camille Chandler PA-C Unavailable [phone] Anabela Barakat APRN ENGRAVING PRESS OPERATOR Unavailable Nima FranceC Unavailable [phone] Basilio Morillo DO Unavailable [phone] Fawad York MD Unavailable [phone] Roopa Almonte MD Unavailable [phone] Augustine Callaway MD Unavailable Maryse Burton PA-C Unavailable Marquita Starkey MD Unavailable [phone] Roopa Almonte MD Unavailable [phone] Griffin Joshi MD Unavailable Rina Magallon RN Unavailable [phone] Paula Reza MD Primary Care Provider UnavailGriffin Yousesf MD Unavailable Roopa Almonte MD Unavailable [phone] MarciaBasilio win Unavailable Lydia Bernstein PA-C Unavailable Rosa Maria Love Unavailable [phone] Augustine Callaway MD Unavailable Paula Reza MD Unavailable Unavailable Keerthi Miner APRN ENGRAVING PRESS OPERATOR Unavailable Herman, Shahida Cummings APRN ENGRAVING PRESS OPERATOR Unavailable Un available Porsha Michaels APRN ENGRAVING PRESS OPERATOR Unavailable [phone] Paula Reza MD Unavailable Unavailable HermanShahida huerta APRN ENGRAVING PRESS OPERATOR Unavailable Un available Daylin Ludwig Unavailable [phone] Laurel Velasquez MD Unavailable [phone] Daylin Ludwig Unavailable [phone] Paula Reza MD Unavailable Unavailable Porsha Michaels APRN ENGRAVING PRESS OPERATOR Unavailable [phone] Laurel Velasquez MD Unavailable [phone] Shahida Sutton APRN ENGRAVING PRESS OPERATOR Unavailable Un available Marilin Montaño ENGRAVING PRESS OPERATOR Unavailable Esha Dewitt MD Unavailable [phone] Heather Mosquera MD Unavailable Paula Reza MD Unavailable Unavailable Esha Dewitt MD Unavailable [phone] Valdo Escamilla PA-C Unavailable Nohelia Abarca PA-C Unavailable [phone] Heather Mosquera MD Unavailable [phone] Fawad York MD Unavailable [phone] Encounter Details Date Type Department Care Team (Late st Contact Info) Description 05/07/[address] [address] Maximiliano Herrmann Social History Tobacco [...] AM CDT Legal 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 Gender Identity Male 09/20/2020 8:37 AM CDT Sexual Orientation Straight 09/20/2020 8: 37 AM CDT documented as of this encounter Plan of Treatment Not on file documented as of this encounter Visit Diagnoses Not on filedocumented in this encounter Additional Health Concerns Infection Onset Date Last Indicated Resolved Time Rule Out COVID-19 02/15/2020 02/15/2020 02/16/2020 2:32 PM LATEX SPOOLER Rule Out COVID-19 01/05/2021 01/05/2021 01/06/2021 12:57 PM CDT ESBL 01/05/2021 01/05/2021 Rule Out COVID-19 06/30/2021 06/30/2021 07/01/2021 9:34 AM CDT Rule Out COVID-19 07/25/2021 07/25/2021 07/25/2021 8:02 PM CDT documented as of this encounter Care Teams Presser Automatic Relationship Specialty Start Date End Date Dixon Carson MD PCP - General 08/10/03 07/21/09 Mingo Aldana MD PCP - General Family Practice 07/22/09 07/12/14 Shahida Sutton APRN ENGRAVING PRESS OPERATOR PCP - General Nurse Practitioner 08/17/14 08/04/21 Shahida Sutton APRN ENGRAVING PRESS OPERATOR PCP - Assigned PCP 07/12/14 05/07/18 Paula Reza MD PCP - General Internal Medicine 08/05/21 Shahida Sutton APRN ENGRAVING PRESS OPERATOR Assigned PCP 07/12/14 09/30/21 Carolynn Ramon RN Personal Advocate & Liaison (PAL) 12/17/18 08/07/21 [place] [address] [place], [place] [address] Assigned Musculoskeletal Provider 12/26/19 08/21/20 Brady Lion MD Assigned Heart and Vascular Provider 12/26/19 08/14/20 Nima France PA-C [address] [place] [address] Assigned Surgical Provider 05/19/20 08/21/20 Camille Chandler PA-C [address] [place] [address] Assigned Neuroscience Provider 05/19/20 09/14/20 Anabela Barakat APRN ENGRAVING PRESS OPERATOR [address] [place] [address] Assigned Heart and Vascular Provider 08/15/20 08/05/21 Nima France PA-C [address] [facility] [address] [place] [address] Assigned Musculoskeletal Provider 08/22/20 11/13/20 [place] [address] [facility] [address] [place], [place] [address] Assigned Musculoskeletal Provider 11/14/20 12/04/20 Fawad York MD [address] [place], [place] [address] Assigned Musculoskeletal Provider 12/05/20 02/05/21 Roopa Almonte MD [address] [employer] [facility] 200 [place], [place] [address] Endocrinology, Diabetes, and Metabolism 01/19/21 [place] [address] [facility] [address] [place] [address] Assigned Musculoskeletal Provider 02/06/21 09/16/21 Maryse Burton PA-C [address] [place] [address] Physician E Commerce Marketing Analyst Dermatology 04/14/21 Marquita Starkey MD [address] [employer] [facility] [address] [place] [address] Internal Medicine 05/06/21 05/06/21 Roopa Almonte MD [address] [facility] [address] [place] [address] Hospitalist Endocrinology, Diabetes, and Metabolism 05/30/21 Griffin Joshi MD [address] [facility] [address] [place] [address] Cardiovascular Disease 07/25/21 Rina Magallon, RN Lead Waistline Joiner Overlock 07/29/21 07/11/22 Griffin Joshi MD [address] [facility] [address] [place] [address] Assigned Heart and Vascular Provider 08/06/21 10/07/21 Roopa Almonte MD [address] [place] [address] 200 [place], [place] [address] Assigned Endocrinology Provider 09/10/21 02/24/24 [place] [address] [facility] [place] [address] Assigned Musculoskeletal Provider 09/17/21 10/14/21 Lydia Bernstein PA-C [address] [facility] [address] [place] [address] Assigned PCP 10/01/21 10/21/21 Rosa Maria Love [facility] Community Health Worker 10/06/21 [place] [address] [facility] [address] [place] [address] Assigned Musculoskeletal Provider 10/15/21 04/26/23 Paula Reza MD INACTIVE IN [place] 02/02/2024 Assigned PCP 10/22/21 12/23/21 Keerthi Miner [employer] ENGRAVING PRESS OPERATOR [address] [place] [address] Assigned Heart and Vascular Provider 10/08/21 02/10/22 Shahida Sutton, [employer] ENGRAVING PRESS OPERATOR Assigned PCP 12/24/21 03/24/22 Porsha Michaels FISH[employer] D[employer] NET ENGRAVING PRESS OPERATOR [address] [place] [address] Assigned Heart and Vascular Provider 02/11/22 05/12/22 Paula Reza MD [place]NA[place] 02/02/2024 Assigned PCP 03/25/22 04/07/22 Shahida Sutton, FISH[employer] ENGRAVING PRESS OPERATOR [address] [place] [address] Assigned PCP 04/08/22 06/30/22 Daylin Ludwig, MIKI [facility] [address] [place] [address] Cardiac Rehabilitation Therapist 05/16/23 Laurel Velasquez MD [address] [place] [address] Assigned Heart and Vascular Provider 05/13/22 06/30/22 Daylin Ludwig, MI[facility] [address] [place] [address] Cardiac Rehabilitation Therapist 06/08/22 06/09/23 Paula Reza MD [place] 02/02/2024 Assigned PCP 07/01/22 07/07/22 Porsha Michaels APRN ENGRAVING PRESS OPERATOR [address] [place] [address] Assigned Heart and Vascular Provider 07/01/22 07/07/22 Laurel Velasquez MD [address] [place] [address] Assigned Heart and Vascular Provider 07/08/22 08/04/22 Shahida Sutton APRN ENGRAVING PRESS OPERATOR Assigned PCP 07/08/22 09/08/22 Marilin Montaño ENGRAVING PRESS OPERATOR [address] [place] [address] Assigned Heart and Vascular Provider 08/05/22 02/24/24 Esha Dewitt MD [address] [place] [address] Gastroenterology 09/06/22 Heather Mosquera MD [address] [place] [address] Internal Medicine 09/06/22 Paula Reza MD [place] 02/02/2024 Assigned PCP 09/09/22 01/05/23 Esha Dewitt MD [address] [place] [address] Assigned Gastroenterology Provider 09/23/22 04/26/24 Valdo Escamilla PA-C [address] [place] [address] Assigned Neuroscience Provider 09/30/22 04/26/24 Nohelia Abarca PA-C [address] [facility] [address] [place] [address] Physician E Commerce Marketing Analyst Gastroenterology 10/03/22 Heather Mosquera MD [address] [place] [address] Assigned PCP 01/06/23 Fawad York MD [address] [place], [place] [address] Assigned Musculoskeletal Provider 04/27/23 06/25/23 documented as of this encounter
--- OUTSIDE RECORDS SUMMARY | 2024-11-02 15:11 | XMS_ITS | Encounter Summary ---
Author Organization [facility] Address [address] [place] [address] Care Team Providers Care Electronics Manufacturer Name Role Phone Dixon Carson MD Primary Care Provider Unavailable Mingo Aldana MD Primary Car e Provider HermanShahida APRN HEADING UP MACHINE OPERATOR Primary Care Provi ford Unavailable Herman, Shahida Cummings APRN HEADING UP MACHINE OPERATOR Unavailable Un available Herman, Shahida Cummings APRN HEADING UP MACHINE OPERATOR Unavailable Un available Carolynn Ramon RN Unavailable [phone] Augustine Callaway MD Unavailable Brady Lion MD Unavailable Un available Nima FranceC Unavailable [phone] Camille Chandler PA-C Unavailable [phone] Anabela Barakat APRN HEADING UP MACHINE OPERATOR Unavailable Nima FranceC Unavailable [phone] Basilio Morillo DO Unavailable [phone] Fawad York MD Unavailable [phone] Roopa Almonte MD Unavailable [phone] Augustine Callaway MD Unavailable Maryse Burton PA-C Unavailable Marquita Starkey MD Unavailable [phone] Roopa Almonte MD Unavailable [phone] Griffin Joshi MD Unavailable Rina Magallon RN Unavailable [phone] Paula Reza MD Primary Care Provider UnavailGriffin Youssef MD Unavailable Roopa Almonte MD Unavailable [phone] MarciaBasilio win Unavailable Lydia Bernstein PA-C Unavailable Rosa Maria Love Unavailable [phone] Augustine Callaway MD Unavailable Paula Reza MD Unavailable Unavailable Keerthi Miner APRN HEADING UP MACHINE OPERATOR Unavailable Herman, Shahida Cummings APRN HEADING UP MACHINE OPERATOR Unavailable Un available Porsha Michaels APRN HEADING UP MACHINE OPERATOR Unavailable [phone] Paula Reza MD Unavailable Unavailable HermanShahida huerta APRN HEADING UP MACHINE OPERATOR Unavailable Un available Daylin Ludwig Unavailable [phone] Laurel Velasquez MD Unavailable [phone] Daylin Ludwig Unavailable [phone] Paula Reza MD Unavailable Unavailable Porsha Michaels APRN HEADING UP MACHINE OPERATOR Unavailable [phone] Laurel Velasquez MD Unavailable [phone] Shahida Sutton APRN HEADING UP MACHINE OPERATOR Unavailable Un available Marilin Montaño HEADING UP MACHINE OPERATOR Unavailable Esha Dewitt MD Unavailable [phone] Heather Mosquera MD Unavailable Paula Reza MD Unavailable Unavailable Esha Dewitt MD Unavailable [phone] Valdo Escamilla PA-C Unavailable [phone] Nohelia Abarca PA-C Unavailable [phone] Heather Mosquera MD Unavailable [phone] Fawad York MD Unavailable [phone] Encounter Details Date Type Department Care Team (Late st Contact Info) Description 08/20/[address] [address] Dixon Carson MD XXX HOSPITALIST/ED DOCTOR XXX Social History Tobacco Use Types Packs/Day Years Used Date Smoking Tobacco: Every Day Cigarettes 0.5 25 Pipe Cigars Comments:social smoker Alcohol Use Standard Drinks/Week Comments Yes 0 (1 standard drink = 0.6 oz pur e alcohol) 2 drinks/ week Sex and Gender Information Value Date Recorded Sex Assigned at Male 09/20/2020 8:37 AM CDT 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 Gender Identity Male 09/20/2020 8:37 AM CDT Sexual Orientation Straight 09/20/2020 8: 37 AM CDT documented as of this encounter Plan of Treatment Not on file documented as of this encounter Visit Diagnoses Not on filedocumented in this encounter Additional Health Concerns Infection Onset Date Last Indicated Resolved Time Rule Out COVID-19 02/15/2020 02/15/2020 02/16/2020 2:32 PM PHYSICIANS ASSISTANT Rule Out COVID-19 01/05/2021 01/05/2021 01/06/2021 12:57 PM CDT ESBL 01/05/2021 01/05/2021 Rule Out COVID-19 06/30/2021 06/30/2021 07/01/2021 9:34 AM CDT Rule Out COVID-19 07/25/2021 07/25/2021 07/25/2021 8:02 PM CDT documented as of this encounter Care Teams Electronics Manufacturer Relationship Specialty Start Date End Date Dixon Carson MD PCP - General 08/10/03 07/21/09 Mingo Aldana MD PCP - General Family Practice 07/22/09 07/12/14 Shahida Sutton APRN HEADING UP MACHINE OPERATOR PCP - General Nurse Practitioner 08/17/14 08/04/21 Shahida Sutton APRN HEADING UP MACHINE OPERATOR PCP - Assigned PCP 07/12/14 05/07/18 Paula Reza MD PCP - General Internal Medicine 08/05/21 Shahida Sutton APRN HEADING UP MACHINE OPERATOR Assigned PCP 07/12/14 09/30/21 Carolynn Rmaon RN Personal Advocate & Liaison (PAL) 12/17/18 08/07/21 [place] [address] [place], [place] [address] Assigned Musculoskeletal Provider 12/26/19 08/21/20 Brady Lion MD Assigned Heart and Vascular Provider 12/26/19 08/14/20 Nima France PA-C [address] [place] [address] Assigned Surgical Provider 05/19/20 08/21/20 Camille Chandler PA-C [address] [place] [address] Assigned Neuroscience Provider 05/19/20 09/14/20 Anabela Barakat APRN HEADING UP MACHINE OPERATOR [address] [place] [address] Assigned Heart and Vascular Provider 08/15/20 08/05/21 Nima France PA-C [address] [facility] [address] [place] [address] Assigned Musculoskeletal Provider 08/22/20 11/13/20 [place] [address] [facility] [address] [place], [place] [address] Assigned Musculoskeletal Provider 11/14/20 12/04/20 Fawad York MD [address] [place], [place] [address] Assigned Musculoskeletal Provider 12/05/20 02/05/21 Roopa Almonte MD [address] [facility] [address] [place], [place] [address] Endocrinology, Diabetes, and Metabolism 01/19/21 [place] [address] [facility] [address] [place] [address] Assigned Musculoskeletal Provider 02/06/21 09/16/21 Maryse Burton PA-C [address] [place] [address] Physician Interpersonal Communications Professor Dermatology 04/14/21 Marquita Starkey MD [address] [facility] [address] [place] [address] Internal Medicine 05/06/21 05/06/21 Roopa Almonte MD [address] [facility] [address] [place] [address] Hospitalist Endocrinology, Diabetes, and Metabolism 05/30/21 Griffin Joshi MD [address] [facility] [address] [place] [address] Cardiovascular Disease 07/25/21 Rina Magallon, RN Lead Network Associate 07/29/21 07/11/22 Griffin Joshi MD [address] [facility] [address] [place] [address] Assigned Heart and Vascular Provider 08/06/21 10/07/21 Roopa Almonte MD [address] [place] [address] 200 [place], [place] [address] Assigned Endocrinology Provider 09/10/21 02/24/24 [place] [address] [employer] [facility] [place] [address] Assigned Musculoskeletal Provider 09/17/21 10/14/21 Lydia Bernstein PA-C [address] [facility] [address] [place] [address] Assigned PCP 10/01/21 10/21/21 Rosa Maria Love CHW Community Health Worker 10/06/21 [place] [address] [facility] [address] [place] [address] Assigned Musculoskeletal Provider 10/15/21 04/26/23 Paula Reza [place] 02/02/2024 Assigned PCP 10/22/21 12/23/21 Keerthi Miner TOWBOAT ENGINEER HEADING UP MACHINE OPERATOR [address] [place] [address] Assigned Heart and Vascular Provider 10/08/21 02/10/22 Shahida Sutton, TOWBOAT ENGINEER HEADING UP MACHINE OPERATOR Assigned PCP 12/24/21 03/24/22 Porsha Michaels TOWBOAT ENGINEER HEADING UP MACHINE OPERATOR [address] [place] [address] Assigned Heart and Vascular Provider 02/11/22 05/12/22 Paula Reza MD [place] 02/02/2024 Assigned PCP 03/25/22 04/07/22 Shahida Sutton, TOWBOAT ENGINEER HEADING UP MACHINE OPERATOR [address] [place] [address] Assigned PCP 04/08/22 06/30/22 Daylin Ludwig, MIKI [facility] [address] [place] [address] Cardiac Rehabilitation Therapist 05/16/23 Laurel Velasquez MD [address] [place] [address] Assigned Heart and Vascular Provider 05/13/22 06/30/22 Daylin Ludwig, MIKI [facility] [address] [address] Cardiac Rehabilitation Therapist 06/08/22 06/09/23 Paula Reza MD [place] 02/02/2024 Assigned PCP 07/01/22 07/07/22 Porsha Michaels APRN HEADING UP MACHINE OPERATOR [address] [place] [address] Assigned Heart and Vascular Provider 07/01/22 07/07/22 Laurel Velasquez MD [address] [place] [address] Assigned Heart and Vascular Provider 07/08/22 08/04/22 Shahida Sutton APRN HEADING UP MACHINE OPERATOR Assigned PCP 07/08/22 09/08/22 Marilin Montaño HEADING UP MACHINE OPERATOR [address] [place] [address] Assigned Heart and Vascular Provider 08/05/22 02/24/24 Esha Dewitt MD [address] [place] [address] Gastroenterology 09/06/22 Heather Mosquera MD [address] [place] [address] Internal Medicine 09/06/22 Paula Reza MD [place] 02/02/2024 Assigned PCP 09/09/22 01/05/23 Esha Dewitt MD [address] [place] [address] Assigned Gastroenterology Provider 09/23/22 04/26/24 Valdo Escamilla PA-C [address] [place] [address] Assigned Neuroscience Provider 09/30/22 04/26/24 Nohelia Abarca PA-C [address] [facility] [address] [place] [address] Physician Interpersonal Communications Professor Gastroenterology 10/03/22 Heather Mosquera MD [address] [place] [id number] Assigned PCP 01/06/23 Fawad York MD [address] [place], [place] [address] Assigned Musculoskeletal Provider 04/27/23 06/25/23 documented as of this encounter
--- OUTSIDE RECORDS SUMMARY | 2024-11-02 15:11 | XMS_ITS | Encounter Summary ---
Author Organization [facility] Address [address] [place] [address] Care Team Providers Care Development Coordinator Name Role Phone Shahida Sutton GEODETIC SURVEYOR TECHNOLOGIST GROUNDMAN/LINEMAN Primary Care Provi ford Unavailable Shahida Sutton APRN GROUNDMAN/LINEMAN Unavailable Un available Carolynn Ramon RN Unavailable [phone] Anabela Barakat GEODETIC SURVEYOR TECHNOLOGIST GROUNDMAN/LINEMAN Unavailable Fawad York MD Unavailable [phone] Roopa Almonte MD Unavailable [phone] Augustine Callaway MD Unavailable Maryse Burton PA-C Unavailable [phone] Marquita Starkey MD Unavailable [phone] Roopa Almonte MD Unavailable [phone] Griffin Joshi MD Unavailable Rina Magallon RN Unavailable [phone] Paula Reza MD Primary Care Provider UnavailGriffin Youssef MD Unavailable Roopa Almonte MD Unavailable [phone] Basilio Morillo DO Unavailable [phone] Lydia Bernstein PA-C Unavailable Rosa Maria Love Unavailable Augustine Callaway MD Unavailable Paula Reza MD Unavailable Unavailable Brett Mineristine Taylor ZEPEDA GROUNDMAN/LINEMAN Unavailable HermanShahida GEODETIC SURVEYOR TECHNOLOGIST GROUNDMAN/LINEMAN Unavailable Un available Porsha Michaels APRN GROUNDMAN/LINEMAN Unavailable [phone] Paula Reza MD Unavailable Unavailable Herman, Shahida Cummings APRN GROUNDMAN/LINEMAN Unavailable Un available Daylin Ludwig Unavailable [phone] Laurel Velasquez MD Unavailable [phone] Daylin Ludwig Unavailable [phone] Paula Reza MD Unavailable Unavailable Porsha Michaels APRN GROUNDMAN/LINEMAN Unavailable [phone] Laurel Velasquez MD Unavailable [phone] HermanShahida huerta APRN GROUNDMAN/LINEMAN Unavailable Un available Marilin Montaño GROUNDMAN/LINEMAN Unavailable [phone] Esha Dewitt MD Unavailable [phone] Heather Mosquera MD Unavailable [phone] Paula Reza MD Unavailable Unavailable Esha Dewitt MD Unavailable [phone] Valdo Escamilla PA-C Unavailable [phone] Nohelia Abarca PA-C Unavailable [phone] Heather Mosquera MD Unavailable [phone] Fawad York MD Unavailable [phone] Encounter Details Date Type Department Care Team (Late st Contact Info) Description 12/28/2020 [facility] [address] [address] Carolynn Ramon RN Social History [...] AM CDT Legal 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 Gender Identity Male 09/20/2020 8:37 AM CDT Sexual Orientation Straight 09/20/2020 8: 37 AM CDT 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 Not on file [...] documented as of this encounter Care Teams Development Coordinator Relationship Specialty Start Date End Date Shahida Sutton APRN GROUNDMAN/LINEMAN PCP - General Nurse Practitioner 08/17/14 08/04/21 Paula Reza MD PCP - General Internal Medicine 08/05/21 Shahida Sutton APRN CNP Assigned PCP 07/12/14 09/30/21 Carolynn Ramon, KASIE Personal Advocate & Liaison (PAL) 12/17/18 08/07/21 Anabela Barakat APRN CNP [address] [place] [address] Assigned Heart and Vascular Provider 08/15/20 08/05/21 Fawad York MD [address] [place], [place] [address] Assigned Musculoskeletal Provider 12/05/20 02/05/21 Roopa Almonte MD [address] [place] [address] Endocrinology, Diabetes, and Metabolism 01/19/21 [place] [address] [place] [address] Assigned Musculoskeletal Provider 02/06/21 09/16/21 Maryse Burton PA-C [address] [place] [address] Physician Sound Cutter Dermatology 04/14/21 Marquita Starkey MD [address] [place] [address] Internal Medicine 05/06/21 05/06/21 Roopa Almonte MD [address] [place] [address] Hospitalist Endocrinology, Diabetes, and Metabolism 05/30/21 Griffin Joshi MD [address] [facility] [address] [place] [address] Cardiovascular Disease 07/25/21 Rina Magallon, RN Lead Campus Police Officer 07/29/21 07/11/22 Griffin Joshi MD [address] [facility] [address] [place] [address] Assigned Heart and Vascular Provider 08/06/21 10/07/21 Roopa Almonte MD [address] [place] [address] 200 [place], [place] [address] Assigned Endocrinology Provider 09/10/21 02/24/24 [place] [address] [facility] [place] [address] Assigned Musculoskeletal Provider 09/17/21 10/14/21 Lydia Bernstein PA-C [address] [facility] [address] [place] [address] Assigned PCP 10/01/21 10/21/21 Rosa Maria Love Cristina Community Health Worker 10/06/21 07/11/22 [place] [address] [address] [facility] [address] [place] [address] Assigned Musculoskeletal Provider 10/15/21 04/26/23 Paula Reza MD INACTIVE IN [place] 02/02/2024 Assigned PCP 10/22/21 12/23/21 Keerthi Miner APRN GROUNDMAN/LINEMAN [address] [place] [address] Assigned Heart and Vascular Provider 10/08/21 02/10/22 Shahida Sutton APRN GROUNDMAN/LINEMAN Assigned PCP 12/24/21 03/24/22 Porsha Michaels, DUANE GROUNDMAN/LINEMAN [address] [place] [address] Assigned Heart and Vascular Provider 02/11/22 05/12/22 Paula Reza MD [place] 02/02/2024 Assigned PCP 03/25/22 04/07/22 Shahida Sutton APRN GROUNDMAN/LINEMAN [address] [place] [address] Assigned PCP 04/08/22 06/30/22 Daylin Ludwig, EP [facility] [address] [place] [address] Cardiac Rehabilitation Therapist 05/16/23 Laurel Velasquez MD [address] [place] [address] Assigned Heart and Vascular Provider 05/13/22 06/30/22 Daylin Ludwig, EP [facility] [address] [place] [address] Cardiac Rehabilitation Therapist 06/08/22 06/09/23 Paula Reza MD [place] 02/02/2024 Assigned PCP 07/01/22 07/07/22 Porsha Michaels, GEODETIC SURVEYOR TECHNOLOGIST GROUNDMAN/LINEMAN [address] [place] [address] Assigned Heart and Vascular Provider 07/01/22 07/07/22 Laurel Velasquez MD [address] [place] [address] Assigned Heart and Vascular Provider 07/08/22 08/04/22 Shahida Sutton, GEODETIC SURVEYOR TECHNOLOGIST GROUNDMAN/LINEMAN Assigned PCP 07/08/22 09/08/22 Marilin Montaño, GROUNDMAN/LINEMAN [address] [place] [address] Assigned Heart and Vascular Provider 08/05/22 02/24/24 Esha Dewitt MD [address] [facility] 36 [place] [address] Gastroenterology 09/06/22 Heather Mosquera MD [address] [place] [address] Internal Medicine 09/06/22 Paula Reza MD [place]CTIVE IN [place] 02/02/2024 Assigned PCP 09/09/22 01/05/23 Esha Dewitt MD [address] [facility] 36 [place] [address] Assigned Gastroenterology Provider 09/23/22 04/26/24 Valdo Escamilla PA-C [address] [place], [place] [address] Assigned Neuroscience Provider 09/30/22 04/26/24 Nohelia Abarca PA-C [address] [facility] [address] [place] [id number] Physician Sound Cutter Gastroenterology 10/03/22 Heather Mosquera MD [address] [facility] [address] [place] [address] Assigned PCP 01/06/23 Fawad York MD [address] [place] [address] Assigned Musculoskeletal Provider 04/27/23 06/25/23 documented as of this encounter
--- OUTSIDE RECORDS SUMMARY | 2024-11-02 15:11 | XMS_ITS | Encounter Summary ---
Author Organization [facility] Address [address] [place] [address] Care Team Providers Care Feed Mill Operator Name Role Phone Dixon Carson MD Primary Care Provider Unavailable Mingo Aldana MD Primary Car e Provider HermanShahida APRN BUSINESS INITIATIVES MANAGER Primary Care Provi ford Unavailable Herman, Shahida uCmmings APRN BUSINESS INITIATIVES MANAGER Unavailable Un available Herman, Shahida Cummings APRN BUSINESS INITIATIVES MANAGER Unavailable Un available Carolynn Ramon RN Unavailable [phone] Augustine Callaway MD Unavailable Brady Lion MD Unavailable Un available Nima FranceC Unavailable [phone] Camille Chandler PA-C Unavailable [phone] Anabela Barakat APRN BUSINESS INITIATIVES MANAGER Unavailable Nima FranceC Unavailable [phone] Basilio Morillo DO Unavailable [phone] Fawad York MD Unavailable [phone] Roopa Almonte MD Unavailable [phone] Augustine Callaway MD Unavailable Maryse Burton PA-C Unavailable Marquita Starkey MD Unavailable [phone] Roopa Almonte MD Unavailable [phone] Griffin Joshi MD Unavailable Rina Magallon RN Unavailable [phone] Paula Reza MD Primary Care Provider UnavailGriffin Youssef MD Unavailable Roopa Almonte MD Unavailable [phone] MarciaBasilio win Unavailable Lydia Bernstein PA-C Unavailable Rosa Maria Love Unavailable [phone] Augustine Callaway MD Unavailable Paula Reza MD Unavailable Unavailable Keerthi Miner APRN BUSINESS INITIATIVES MANAGER Unavailable Herman, Shahida Cummings APRN BUSINESS INITIATIVES MANAGER Unavailable Un available Porsha Michaels APRN BUSINESS INITIATIVES MANAGER Unavailable [phone] Paula Reza MD Unavailable Unavailable HermanShahida huerta APRN BUSINESS INITIATIVES MANAGER Unavailable Un available Daylin Ludwig Unavailable [phone] Laurel Velasquez MD Unavailable [phone] Daylin Ludwig Unavailable [phone] Paula Reza MD Unavailable Unavailable Porsha Michaels APRN BUSINESS INITIATIVES MANAGER Unavailable [phone] Laurel Velasquez MD Unavailable [phone] Shahida Sutton APRN BUSINESS INITIATIVES MANAGER Unavailable Un available Marilin Montaño BUSINESS INITIATIVES MANAGER Unavailable Esha Dewitt MD Unavailable [phone] Heather Mosquera MD Unavailable [phone] Paula Reza MD Unavailable Unavailable Esha Dewitt MD Unavailable [phone] Valdo Escamilla PA-C Unavailable [phone] Nohelia Abarca PA-C Unavailable [phone] Heather Mosquera MD Unavailable [phone] Fawad York MD Unavailable [phone] Encounter Details Date Type Department Care Team (Late st Contact Info) Description 04/17/2007 [facility] [address] [address] Dixon Carson MD XXX HOSPITALIST/ED [...] AM CDT Legal 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 Gender Identity Male 09/20/2020 8:37 AM CDT Sexual Orientation Straight 09/20/2020 8: 37 AM CDT documented as of this encounter Plan of Treatment Not on file documented as of this encounter Visit Diagnoses Not on filedocumented in this encounter Additional Health Concerns Infection Onset Date Last Indicated Resolved Time Rule Out COVID-19 02/15/2020 02/15/2020 02/16/2020 2:32 PM MANAGED SERVICES SALES CONSULTANT Rule Out COVID-19 01/05/2021 01/05/2021 01/06/2021 12:57 PM CDT ESBL 01/05/2021 01/05/2021 Rule Out COVID-19 06/30/2021 06/30/2021 07/01/2021 9:34 AM CDT Rule Out COVID-19 07/25/2021 07/25/2021 07/25/2021 8:02 PM CDT documented as of this encounter Care Teams Feed Mill Operator Relationship Specialty Start Date End Date Dixon Carson MD PCP - General 08/10/03 07/21/09 Mingo Aldana MD PCP - General Family Practice 07/22/09 07/12/14 Shahida Sutton APRN BUSINESS INITIATIVES MANAGER PCP - General Nurse Practitioner 08/17/14 08/04/21 Shahida Sutton SOFTWARE SUPPORT REPRESENTATIVE BUSINESS INITIATIVES MANAGER PCP - Assigned PCP 07/12/14 05/07/18 Paula Reza MD PCP - General Internal Medicine 08/05/21 Shahida Sutton APRN BUSINESS INITIATIVES MANAGER Assigned PCP 07/12/14 09/30/21 Carolynn Ramon RN Personal Advocate & Liaison (PAL) 12/17/18 08/07/21 [place] [address] [place] [address] Assigned Musculoskeletal Provider 12/26/19 08/21/20 Brady Lion MD Assigned Heart and Vascular Provider 12/26/19 08/14/20 Nima France PA-C [address] [place] [address] Assigned Surgical Provider 05/19/20 08/21/20 Camille Chandler PA-C [address] [place] [address] Assigned Neuroscience Provider 05/19/20 09/14/20 Anabela Barakat, DUANE BUSINESS INITIATIVES MANAGER [address] [place] [address] Assigned Heart and Vascular Provider 08/15/20 08/05/21 Nima France PA-C 6545 [facility] 450 [place] [address] Assigned Musculoskeletal Provider 08/22/20 11/13/20 [place] [address] [facility] [place], [place] [address] Assigned Musculoskeletal Provider 11/14/20 12/04/20 Fawad York MD [address] [place], [place] [address] Assigned Musculoskeletal Provider 12/05/20 02/05/21 Roopa Almonte MD [address] [facility] 200 [place], [place] [address] Endocrinology, Diabetes, and Metabolism 01/19/21 [place] [address] [facility] [place] 300 [place] [address] Assigned Musculoskeletal Provider 02/06/21 09/16/21 Maryse Burton PA-C [address] [place] [address] Physician Operations Examiner Dermatology 04/14/21 Marquita Starkey MD [address] [facility] 200 [place], [place] [address] Internal Medicine 05/06/21 05/06/21 Roopa Almonte MD [address] [facility] 200 [place] [address] Hospitalist Endocrinology, Diabetes, and Metabolism 05/30/21 Griffin Joshi MD [address] [place] [address] Cardiovascular Disease 07/25/21 Rina Magallon, RN Lead Hospice Executive Director 07/29/21 07/11/22 Griffin Joshi MD [address] [facility] [address] [place] [address] Assigned Heart and Vascular Provider 08/06/21 10/07/21 Roopa Almonte MD [address] [facility] 200 [place] [address] Assigned Endocrinology Provider 09/10/21 02/24/24 [place] [address] [facility] [place] [address] Assigned Musculoskeletal Provider 09/17/21 10/14/21 Lydia Bernstein PA-C [address] [facility] 150 [place] [address] Assigned PCP 10/01/21 10/21/21 Rosa Maria Love CHW Community Health Worker 10/06/21 [place] [address] [address] [facility] [address] [place] [address] Assigned Musculoskeletal Provider 10/15/21 04/26/23 Paula Reza MD [place] 02/02/2024 Assigned PCP 10/22/21 12/23/21 Keerthi Miner APRN BUSINESS INITIATIVES MANAGER [address] [place] [address] Assigned Heart and Vascular Provider 10/08/21 02/10/22 Shahida Sutton APRN BUSINESS INITIATIVES MANAGER Assigned PCP 12/24/21 03/24/22 Porsha Michaels APRN BUSINESS INITIATIVES MANAGER [address] [place] [address] Assigned Heart and Vascular Provider 02/11/22 05/12/22 Paula Reza MD [place] 02/02/2024 Assigned PCP 03/25/22 04/07/22 Shahida Sutton APRN BUSINESS INITIATIVES MANAGER [address] [place] [address] Assigned PCP 04/08/22 06/30/22 Daylin Ludwig, EP [facility] [address] [place] [address] Cardiac Rehabilitation Therapist 05/16/23 Laurel Velasquez MD [address] [place] [address] Assigned Heart and Vascular Provider 05/13/22 06/30/22 Daylin Ludwig, EP [facility] [address] [place] [address] Cardiac Rehabilitation Therapist 06/08/22 06/09/23 Paula Reza MD [place] 02/02/2024 Assigned PCP 07/01/22 07/07/22 Porsha Michaels APRN BUSINESS INITIATIVES MANAGER [address] [place] [address] Assigned Heart and Vascular Provider 07/01/22 07/07/22 Laurel Velasquez MD [address] [place] [address] Assigned Heart and Vascular Provider 07/08/22 08/04/22 Shahida Sutton APRN BUSINESS INITIATIVES MANAGER Assigned PCP 07/08/22 09/08/22 Marilin Montaño, BUSINESS INITIATIVES MANAGER [address] [place] [address] Assigned Heart and Vascular Provider 08/05/22 02/24/24 Esha Dewitt MD [address] [address] Gastroenterology 09/06/22 Heather Mosquera MD [address] [place] [address] Internal Medicine 09/06/22 Paula Reza MD [place] 02/02/2024 Assigned PCP 09/09/22 01/05/23 Esha Dewitt MD [address] [address] Assigned Gastroenterology Provider 09/23/22 04/26/24 Valdo Escamilla PA-C [address] [place] [address] Assigned Neuroscience Provider 09/30/22 04/26/24 Nohelia Abarca PA-C [address] [place] [address] Physician Operations Examiner Gastroenterology 10/03/22 Heather Mosquera MD [address] [place] [address] Assigned PCP 01/06/23 Fawad York MD [address] [place] [address] Assigned Musculoskeletal Provider 04/27/23 06/25/23 documented as of this encounter
--- OUTSIDE RECORDS SUMMARY | 2024-11-02 15:11 | XMS_ITS | Encounter Summary ---
Author Organization [facility] Address [address] [place] [address] Care Team Providers Care Hassock Maker Name Role Phone Shahida Sutton BUS CLEANER GLASS LOADING EQUIPMENT TENDER Primary Care Provi ford Unavailable Shahida Sutton APRN GLASS LOADING EQUIPMENT TENDER Unavailable Un available Carolynn Ramon RN Unavailable [phone] Anabela Barakat BUS CLEANER GLASS LOADING EQUIPMENT TENDER Unavailable Fawad York MD Unavailable [phone] Roopa Almonte MD Unavailable [phone] Augustine Callaway MD Unavailable Maryse Burton PA-C Unavailable [phone] Marquita Starkey MD Unavailable [phone] Roopa Almonte MD Unavailable [phone] Griffin Joshi MD Unavailable Rina Magallon RN Unavailable [phone] Paula Reza MD Primary Care Provider UnavailGriffin Youssef MD Unavailable Roopa Almonte MD Unavailable [phone] Basilio Morillo DO Unavailable Lydia Bernstein PA-C Unavailable Rosa Maria Love Unavailable Augustine Callaway MD Unavailable Paula Reza MD Unavailable Unavailable Keerthi Miner APRN GLASS LOADING EQUIPMENT TENDER Unavailable [phone] Herman, Shahida Cummings BUS CLEANER GLASS LOADING EQUIPMENT TENDER Unavailable Un available Porsha Micahels APRN GLASS LOADING EQUIPMENT TENDER Unavailable [phone] Paula Reza MD Unavailable Unavailable Herman, Shahida Cummings APRN GLASS LOADING EQUIPMENT TENDER Unavailable Un available Daylin Ludwig Unavailable [phone] Laurel Velasquez MD Unavailable [phone] Daylin Ludwig Unavailable [phone] Paula Reza MD Unavailable Unavailable Porsha Michaels APRN GLASS LOADING EQUIPMENT TENDER Unavailable [phone] Laurel Velasquez MD Unavailable [phone] Herman, Shahida Cummings APRN GLASS LOADING EQUIPMENT TENDER Unavailable Un available Marilin Montaño GLASS LOADING EQUIPMENT TENDER Unavailable [phone] Esha Dewitt MD Unavailable [phone] Heather Mosquera MD Unavailable [phone] Paula Reza MD Unavailable Unavailable Esha Dewitt MD Unavailable [phone] Valdo Escamilla PA-C Unavailable +[phone] Nohelia Abarca PA-C Unavailable [phone] Heather Mosquera MD Unavailable [phone] Fawad York MD Unavailable [phone] Encounter Details Date Type Department Care Team (Late st Contact Info) Description 01/04/2021 [facility] [address] [address] Shahida Sutton APRN CNP Social [...] AM CDT 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 Gender Identity Male 09/20/2020 8:37 AM CDT Sexual Orientation Straight 09/20/2020 8: 37 AM CDT 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 Not on file Not [...] documented as of this encounter Care Teams Hassock Maker Relationship Specialty Start Date End Date Shahida Sutton APRN CNP PCP - General Nurse Practitioner 08/17/14 08/04/21 Paula Reza MD PCP - General Internal Medicine 08/05/21 Shahida Sutton APRN CNP Assigned PCP 07/12/14 09/30/21 Carolynn Ramon, KASIE Personal Advocate & Liaison (PAL) 12/17/18 08/07/21 Anabela Barakat APRN CNP 1700 [place] [address] Assigned Heart and Vascular Provider 08/15/20 08/05/21 Fawad York MD 909 [place] [address] Assigned Musculoskeletal Provider 12/05/20 02/05/21 Roopa Almonte MD [address] [facility] 200 [place] [address] Endocrinology, Diabetes, and Metabolism 01/19/21 [place] [address] [facility] 300 [place] [address] Assigned Musculoskeletal Provider 02/06/21 09/16/21 Maryse Burton PA-C 5200 [place] [address] Physician Setter Cold Rolling Machine Dermatology 04/14/21 Marquita Starkey MD [address] [facility] 200 [place] [address] Internal Medicine 05/06/21 05/06/21 Roopa Almonte MD [address] [facility] 200 [place] [address] Hospitalist Endocrinology, Diabetes, and Metabolism 05/30/21 Griffin Joshi MD 6[address] [facility] [address] [place] [address] Cardiovascular Disease 07/25/21 Rina Magallon, RN Lead Training Personnel Supervisor 07/29/21 07/11/22 Griffin Joshi MD [address] [place] [address] Assigned Heart and Vascular Provider 08/06/21 10/07/21 Roopa Almonte MD [address] [facility] 200 [place], [place] [address] Assigned Endocrinology Provider 09/10/21 02/24/24 [place] [address] [facility] [place] [address] Assigned Musculoskeletal Provider 09/17/21 10/14/21 Lydia Bernstein PA-C [address] [place] [address] Assigned PCP 10/01/21 10/21/21 Rosa Maria Love CHW Community Health Worker 10/06/21 07/11/22 [place] [address] [address] [place] [address] Assigned Musculoskeletal Provider 10/15/21 04/26/23 Paula Reza MD [place]CTIVE IN [place] 02/02/2024 Assigned PCP 10/22/21 12/23/21 Keerthi Miner APRN GLASS LOADING EQUIPMENT TENDER [address] [place] [address] Assigned Heart and Vascular Provider 10/08/21 02/10/22 Shahida Sutton APRN GLASS LOADING EQUIPMENT TENDER Assigned PCP 12/24/21 03/24/22 Porsha Michaels APRN GLASS LOADING EQUIPMENT TENDER [address] [place] [address] Assigned Heart and Vascular Provider 02/11/22 05/12/22 Paula Reza MD [place] IN [place] 02/02/2024 Assigned PCP 03/25/22 04/07/22 Shahida Sutton APRN GLASS LOADING EQUIPMENT TENDER [address] [place] [address] Assigned PCP 04/08/22 06/30/22 Daylin Ludwig, EP [facility] [address] [place] [address] Cardiac Rehabilitation Therapist 05/16/23 Laurel Velasquez MD [address] [place] [address] Assigned Heart and Vascular Provider 05/13/22 06/30/22 Daylin Ludwig, EP [facility] [address] [place] [address] Cardiac Rehabilitation Therapist 06/08/22 06/09/23 Paula Reza MD [place]CTIVE IN [place] 02/02/2024 Assigned PCP 07/01/22 07/07/22 Porsha Michaels APRN GLASS LOADING EQUIPMENT TENDER [address] [place] [address] Assigned Heart and Vascular Provider 07/01/22 07/07/22 Laurel Velasquez MD [address] [place] [address] Assigned Heart and Vascular Provider 07/08/22 08/04/22 Shahida Sutton, BUS CLEANER GLASS LOADING EQUIPMENT TENDER Assigned PCP 07/08/22 09/08/22 Marilin Montaño, GLASS LOADING EQUIPMENT TENDER [address] [place] [address] Assigned Heart and Vascular Provider 08/05/22 02/24/24 Esha Dewitt MD 420 [facility] 36 [place] [address] Gastroenterology 09/06/22 Heather Mosquera MD [address] [place] [address] Internal Medicine 09/06/22 Paula Reza MD [place]IVE IN [place] 02/02/2024 Assigned PCP 09/09/22 01/05/23 Esha Dewitt MD 420 [facility] 36 [place] [address] Assigned Gastroenterology Provider 09/23/22 04/26/24 Valdo Escamilla PA-C [address] [place] [address] Assigned Neuroscience Provider 09/30/22 04/26/24 Nohelia Abarca PA-C [address] [place] [address] Physician Setter Cold Rolling Machine Gastroenterology 10/03/22 Heather Mosquera MD [address] [place] [address] Assigned PCP 01/06/23 Fawad York MD [address] [place], [place] [address] Assigned Musculoskeletal Provider 04/27/23 06/25/23 documented as of this encounter
--- OUTSIDE RECORDS SUMMARY | 2024-11-02 15:11 | XMS_ITS | Encounter Summary ---
Author Organization [facility] Address [address] [place] [address] Care Team Providers Care Car Sealer Name Role Phone Shahida Sutton KIER TENDER LEAD VULCANIZING OPERATOR Primary Care Provi ford Unavailable Shahida Sutton APRN LEAD VULCANIZING OPERATOR Unavailable Un available Carolynn Ramon RN Unavailable [phone] Anabela Barakat KIER TENDER LEAD VULCANIZING OPERATOR Unavailable Fawad York MD Unavailable [phone] Roopa Almonte MD Unavailable [phone] Augustine Callaway MD Unavailable Maryse Burton PA-C Unavailable [phone] Marquita Starkey MD Unavailable [phone] Roopa Almonte MD Unavailable [phone] rGiffin Joshi MD Unavailable Rina Magallon RN Unavailable [phone] Paula Reza MD Primary Care Provider UnavailGriffin Youssef MD Unavailable Roopa Almonte MD Unavailable [phone] Basilio Morillo DO Unavailable Lydia Bernstein PA-C Unavailable Rosa Maria Love Unavailable Augustine Callaway MD Unavailable Paula Reza MD Unavailable Unavailable Keerthi Miner APRN LEAD VULCANIZING OPERATOR Unavailable HermanShahida KIER TENDER LEAD VULCANIZING OPERATOR Unavailable Un available Porsha Michaels APRN LEAD VULCANIZING OPERATOR Unavailable [phone] Paula Reza MD Unavailable Unavailable Herman, Shahida Cummings APRN LEAD VULCANIZING OPERATOR Unavailable Un available Daylin Ludwig Unavailable [phone] Laurel Velasquez MD Unavailable [phone] Daylin Ludwig Unavailable [phone] Paula Reza MD Unavailable Unavailable Porsha Michaels APRN LEAD VULCANIZING OPERATOR Unavailable [phone] Laurel Velasquez MD Unavailable [phone] HermanShahida huerta APRN LEAD VULCANIZING OPERATOR Unavailable Un available Marilin Montaño LEAD VULCANIZING OPERATOR Unavailable [phone] Esha Dewitt MD Unavailable [phone] Heather Mosquera MD Unavailable [phone] Paula Reza MD Unavailable Unavailable Esha Dewitt MD Unavailable [phone] Valdo Escamilla PA-C Unavailable [phone] Nohelia Abarca PA-C Unavailable [phone] Heather Mosquera MD Unavailable [phone] Fawad York MD Unavailable [phone] Encounter Details Date Type Department Care Team (Late st Contact Info) Description 12/21/2020 [facility] [address] [address] Erick, Monica Social History Tobacco Use Types Packs/Day Years [...] AM CDT 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 Gender Identity Male 09/20/2020 8:37 AM CDT Sexual Orientation Straight 09/20/2020 8: 37 AM CDT 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 Not on file [...] as of this encounter Care Teams Car Sealer Relationship Specialty Start Date End Date Shahida Sutton APRN LEAD VULCANIZING OPERATOR PCP - General Nurse Practitioner 08/17/14 08/04/21 Paula Reza MD PCP - General Internal Medicine 08/05/21 Shahida Sutton APRN LEAD VULCANIZING OPERATOR Assigned PCP 07/12/14 09/30/21 Carolynn Ramon RN Personal Advocate & Liaison (PAL) 12/17/18 08/07/21 Anabela Barakat APRN LEAD VULCANIZING OPERATOR 1700 [place] [address] Assigned Heart and Vascular Provider 08/15/20 08/05/21 Fawad York MD 909 [place] [address] Assigned Musculoskeletal Provider 12/05/20 02/05/21 Roopa Almonte MD [address] [facility] 200 [place], [place] [address] Endocrinology, Diabetes, and Metabolism 01/19/21 [place] [address] [facility] 300 [place] [address] Assigned Musculoskeletal Provider 02/06/21 09/16/21 Maryse Burton PA-C [address] [place] [address] Physician Mri Technician Dermatology 04/14/21 Marquita Starkey MD [address] [facility] 200 [place] [address] Internal Medicine 05/06/21 05/06/21 Roopa Almonte MD [address] [facility] 200 [place] [address] Hospitalist Endocrinology, Diabetes, and Metabolism 05/30/21 Griffin Joshi MD 6405 [facility] [address] [place] [address] Cardiovascular Disease 07/25/21 Rina Magallon, RN Lead Chief Medical Officer 07/29/21 07/11/22 Griffin Joshi MD [address] [place] [address] Assigned Heart and Vascular Provider 08/06/21 10/07/21 Roopa Almonte MD [address] [facility] 200 [place], [place] [address] Assigned Endocrinology Provider 09/10/21 02/24/24 [place] [address] [employer] [facility] [employer] [facility] [place] [address]489 Assigned Musculoskeletal Provider 09/17/21 10/14/21 Lydia Bernstein PA-C [address] [place] [address] Assigned PCP 10/01/21 10/21/21 Rosa Maria Love Cristina Community Health Worker 10/06/21 07/11/22 [place] [address] [facility] 300 [place] [address] Assigned Musculoskeletal Provider 10/15/21 04/26/23 Paula Reza MD [place]CTIVE IN [place] 02/02/2024 Assigned PCP 10/22/21 12/23/21 Keerthi Miner, KIER TENDER LEAD VULCANIZING OPERATOR [address] [place] [address] Assigned Heart and Vascular Provider 10/08/21 02/10/22 Shahida Sutton APRN LEAD VULCANIZING OPERATOR Assigned PCP 12/24/21 03/24/22 Porsha Michaels APRN LEAD VULCANIZING OPERATOR [address] [place] [address] Assigned Heart and Vascular Provider 02/11/22 05/12/22 Paula Reza MD [place]CTIVE IN [place] 02/02/2024 Assigned PCP 03/25/22 04/07/22 Shahida Sutton APRN LEAD VULCANIZING OPERATOR [address] [place] [address] Assigned PCP 04/08/22 06/30/22 Daylin Ludwig, EP [facility] [address] [place] [address] Cardiac Rehabilitation Therapist 05/16/23 Laurel Velasquez MD [address] [place] [address] Assigned Heart and Vascular Provider 05/13/22 06/30/22 Daylin Ludwig, EP [facility] [address] [place] [address] Cardiac Rehabilitation Therapist 06/08/22 06/09/23 Paula Reza MD [place]CTIVE IN [place] 02/02/2024 Assigned PCP 07/01/22 07/07/22 Porsha Michaels APRN LEAD VULCANIZING OPERATOR [address] [place] [address] Assigned Heart and Vascular Provider 07/01/22 07/07/22 Laurel Velasquez MD [address] [place] [address] Assigned Heart and Vascular Provider 07/08/22 08/04/22 Shahida Sutton APRN LEAD VULCANIZING OPERATOR Assigned PCP 07/08/22 09/08/22 Marilin Montaño, LEAD VULCANIZING OPERATOR [address] [place] [address] Assigned Heart and Vascular Provider 08/05/22 02/24/24 Esha Dewitt MD 420 [facility] 36 [place] [address] Gastroenterology 09/06/22 Heather Mosquera MD [address] [place], [place] [address] Internal Medicine 09/06/22 Paula Reza MD [place]CTIVE IN [place] 02/02/2024 Assigned PCP 09/09/22 01/05/23 Esha Dewitt MD 420 [facility] 36 [place] [address] Assigned Gastroenterology Provider 09/23/22 04/26/24 Valdo Escamilla PA-C [address] [place] [address] Assigned Neuroscience Provider 09/30/22 04/26/24 Nohelia Abarca PA-C [address] [place] [address] Physician Mri Technician Gastroenterology 10/03/22 Heather Mosquera MD [address] [place] [address] Assigned PCP 01/06/23 Fawad York MD [address] [place], [place] [address] Assigned Musculoskeletal Provider 04/27/23 06/25/23 documented as of this encounter
--- OUTSIDE RECORDS SUMMARY | 2024-11-02 15:11 | XMS_ITS | Encounter Summary ---
Author Organization [facility] Address [address] [place] [address] Care Team Providers Care Odd Ticket Clerk Name Role Phone Shahida Sutton APRN CHROME TANNING DRUM OPERATOR Primary Care Provi ford Unavailable Shahida Sutton APRN CHROME TANNING DRUM OPERATOR Unavailable Un available Carolynn Ramon RN Unavailable [phone] Augustine Callaway MD Unavailable Brady Lion MD Unavailable Un available Nima France-C Unavailable [phone] Camille Chandler PA-C Unavailable [phone] Anabela Barakat APRN CHROME TANNING DRUM OPERATOR Unavailable Nima France PA-C Unavailable [phone] Basilio Morillo DO Unavailable [phone] Fawad York MD Unavailable Roopa Almonte MD Unavailable Augustine Callaway MD Unavailable Maryse Burton PA-C Unavailable Marquita Starkey MD Unavailable [phone] Roopa Almonte MD Unavailable [phone] Griffin Joshi MD Unavailable + Rina Magallon RN Unavailable [phone] Paula Reza MD Primary Care Provider UnavailGriffin Youssef MD Unavailable Roopa Almonte MD Unavailable [phone] [facility] Unavailable Lydia Bernstein-C Unavailable Rosa Maria Love Unavailable [phone] Augustine Callaway MD Unavailable Paula Reza MD Unavailable Unavailable Keerthi Miner APRN CHROME TANNING DRUM OPERATOR Unavailable [phone] Herman, Shahida Cummings APRN CHROME TANNING DRUM OPERATOR Unavailable Un available Porsha Michaels APRN CHROME TANNING DRUM OPERATOR Unavailable + Paula Reza MD Unavailable Unavailable Herman, Shahida Cummings APRN CHROME TANNING DRUM OPERATOR Unavailable Un available Daylin Ludwig Unavailable [phone] Laurel Velasquez MD Unavailable [phone] Daylin Ludwig Unavailable [phone] Paula Reza MD Unavailable Unavailable Porsha Michaels APRN CHROME TANNING DRUM OPERATOR Unavailable + Laurel Velasquez MD Unavailable + [phone] HremanShahida huerta APRN CHROME TANNING DRUM OPERATOR Unavailable Un available Marilin Montaño CHROME TANNING DRUM OPERATOR Unavailable [phone] Esha Dewitt MD Unavailable + [phone] Heather Mosquera MD Unavailable [phone] Paula Reza MD Unavailable Unavailable Esha Dewitt MD Unavailable [phone] Valdo Escamilla PA-C Unavailable Nohelia Abarca PA-C Unavailable [phone] Heather Mosquera MD Unavailable [phone] Fawad York MD Unavailable [phone] Reason for Visit * Reason Comments Medication Refill Encounter Details Date Type Department Care Team (Late st Contact Info) Description 08/03/[address] [address] Shahida Sutton APRN CHROME TANNING DRUM OPERATOR Medication Refill Social History Tobacco Use [...] AM CDT Legal Sex Male 3:40 AM RECYCLING COORDINATOR Gender Identity Male 09/20/2020 8:37 AM CDT Sexual Orientation Straight 09/20/2020 8: 37 AM CDT 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 Refill Protocol. Marilin Cuevas RN [facility] -- Triage Nurse documented in this [...] documented as of this encounter Care Teams Odd Ticket Clerk Relationship Specialty Start Date End Date Shahida Sutton APRN CHROME TANNING DRUM OPERATOR PCP - General Nurse Practitioner 08/17/14 08/04/21 Paula Reza MD PCP - General Internal Medicine 08/05/21 Shahida Sutton APRN CHROME TANNING DRUM OPERATOR Assigned PCP 07/12/14 09/30/21 Carolynn Ramon RN Personal Advocate & Liaison (PAL) 12/17/18 08/07/21 [place] [address] [place] [address] Assigned Musculoskeletal Provider 12/26/19 08/21/20 Brady Lion MD Assigned Heart and Vascular Provider 12/26/19 08/14/20 Nima France PA-C [address] [place] [address] Assigned Surgical Provider 05/19/20 08/21/20 Camille Chadnler PA-C [address] [place] [address] Assigned Neuroscience Provider 05/19/20 09/14/20 Anabela Barakat APRN CHROME TANNING DRUM OPERATOR [address] [place] [address] Assigned Heart and Vascular Provider 08/15/20 08/05/21 Nima France PA-C [address] [facility] [address] [place] [address] Assigned Musculoskeletal Provider 08/22/20 11/13/20 [place] [address] [facility] [place] [address] Assigned Musculoskeletal Provider 11/14/20 12/04/20 Fawad York MD [address] [place], [place] [address] Assigned Musculoskeletal Provider 12/05/20 02/05/21 Roopa Almonte MD [address] [facility] 200 [place] [address] Endocrinology, Diabetes, and Metabolism 01/19/21 [place] [address] [facility] 300 [place] [address] Assigned Musculoskeletal Provider 02/06/21 09/16/21 Maryse Burton PA-C [address] [place] [address] Physician Wind Farm Designer Dermatology 04/14/21 Marquita Starkey MD [address] [facility] 200 [place], [place] [address] Internal Medicine 05/06/21 05/06/21 Roopa Almonte MD [address] [facility] 200 [place], [place] [address] Hospitalist Endocrinology, Diabetes, and Metabolism 05/30/21 Griffin Joshi MD [address] [facility] [address] [place] [address] Cardiovascular Disease 07/25/21 Rina Magallon, RN Lead Bird Cage Assembler 07/29/21 07/11/22 Griffin Joshi MD [address] [place] [address] Assigned Heart and Vascular Provider 08/06/21 10/07/21 Roopa Almonte MD [address] [facility] 200 [place], [place] [address] Assigned Endocrinology Provider 09/10/21 02/24/24 [place] [address] [facility] [place] [address] Assigned Musculoskeletal Provider 09/17/21 10/14/21 Lydia Bernstein PA-C [address] [facility] [address] [place] [address] Assigned PCP 10/01/21 10/21/21 Rosa Maria Love CHW Community Health Worker 10/06/21 07/11/22 [place] [address] [facility] [address] [place] [address] Assigned Musculoskeletal Provider 10/15/21 04/26/23 Paula Reza MD INACTIVE IN [place] 02/02/2024 Assigned PCP 10/22/21 12/23/21 Keerthi Miner GUIDE TRAVEL CHROME TANNING DRUM OPERATOR [address] [place] [address] Assigned Heart and Vascular Provider 10/08/21 02/10/22 Shahida Sutton GUIDE TRAVEL CHROME TANNING DRUM OPERATOR Assigned PCP 12/24/21 03/24/22 Porsha Michaels GUIDE TRAVEL CHROME TANNING DRUM OPERATOR [address] [place] [address] Assigned Heart and Vascular Provider 02/11/22 05/12/22 Paula Reza MD INACTIVE IN [place] 02/02/2024 Assigned PCP 03/25/22 04/07/22 Shahida Sutton GUIDE TRAVEL CHROME TANNING DRUM OPERATOR [address] [place] [address] Assigned PCP 04/08/22 06/30/22 Daylin Ludwig EP [facility] [address] [place] [address] Cardiac Rehabilitation Therapist 05/16/23 Laurel Velasquez MD [address] [place] [address] Assigned Heart and Vascular Provider 05/13/22 06/30/22 Daylin Ludwig EP [facility] [address] [place] [address] Cardiac Rehabilitation Therapist 06/08/22 06/09/23 aPula Reza MD INACTIVE IN [place] 02/02/2024 Assigned PCP 07/01/22 07/07/22 Porsha Michaels APRN CHROME TANNING DRUM OPERATOR [address] [place] [address] Assigned Heart and Vascular Provider 07/01/22 07/07/22 Laurel Velasquez MD [address] [place] [address] Assigned Heart and Vascular Provider 07/08/22 08/04/22 Shahida Sutton APRN CHROME TANNING DRUM OPERATOR Assigned PCP 07/08/22 09/08/22 Marilin Montaño, CHROME TANNING DRUM OPERATOR [address] [place] [address] Assigned Heart and Vascular Provider 08/05/22 02/24/24 Esha Dewitt MD [address] [facility] 36 [place], [place] [address] Gastroenterology 09/06/22 Heather Mosquera MD [address] [place] [address] Internal Medicine 09/06/22 Paula Reza MD INACTIVE IN [place] 02/02/2024 Assigned PCP 09/09/22 01/05/23 Esha Dewitt MD 420 [facility] 36 [place] [address] Assigned Gastroenterology Provider 09/23/22 04/26/24 Valdo Escamilla PA-C [address] [place] [address] Assigned Neuroscience Provider 09/30/22 04/26/24 Nohelia Abarca PA-C [address] [place] [address] Physician Wind Farm Designer Gastroenterology 10/03/22 Heather Mosquera MD [address] [place] [address] Assigned PCP 01/06/23 Fawad York MD [address] [place] [address] Assigned Musculoskeletal Provider 04/27/23 06/25/23 documented as of this encounter
--- OUTSIDE RECORDS SUMMARY | 2024-11-02 15:12 | XMS_ITS | Encounter Summary ---
Author Organization [facility] Address [address] [place] [address] Care Team Providers Care Automotive Project Engineer Name Role Phone HermanShahida huerta APRN COMMUNITY RELATIONS REPRESENTATIVE Primary Care Provi ford Unavailable Herman, Shahida Cummings APRN COMMUNITY RELATIONS REPRESENTATIVE Unavailable Un available Herman, Shahida Cummings APRN COMMUNITY RELATIONS REPRESENTATIVE Unavailable Un available Carolynn Ramon RN Unavailable [phone] Augustine Callaway MD Unavailable Brady Lion MD Unavailable Un available Nima France PA-C Unavailable [phone] Camille Chandler PA-C Unavailable [phone] Anabela Barakat APRN COMMUNITY RELATIONS REPRESENTATIVE Unavailable Nima France PA-C Unavailable [phone] Basilio Morillo DO Unavailable [phone] Fawad York MD Unavailable [phone] Roopa Almonte MD Unavailable [phone] Augustine Callaway MD Unavailable Maryse Burton PA-C Unavailable [phone] Marquita Starkey MD Unavailable [phone] Roopa Almonte MD Unavailable [phone] Griffin Joshi MD Unavailable Rina Magallno RN Unavailable [phone] Paula Reaz MD Primary Care Provider UnavailGriffin Youssef MD Unavailable Roopa Almonte MD Unavailable [phone] [facility] win Unavailable Lydia Bernstein-C Unavailable Rosa Maria Love Unavailable [phone] Augustine Callaway MD Unavailable Paula Reza MD Unavailable Unavailable Keerthi Miner APRN COMMUNITY RELATIONS REPRESENTATIVE Unavailable [phone] Herman, Shahida Cummings APRN COMMUNITY RELATIONS REPRESENTATIVE Unavailable Un available Porsha Michaels APRN COMMUNITY RELATIONS REPRESENTATIVE Unavailable [phone] Paula Reza MD Unavailable Unavailable HermanShahida APRN COMMUNITY RELATIONS REPRESENTATIVE Unavailable Un available Daylin Ludwig Unavailable [phone] Laurel Velasquez MD Unavailable [phone] Daylin Ludwig Unavailable [phone] Paula Reza MD Unavailable Unavailable Porsha Michaels APRN COMMUNITY RELATIONS REPRESENTATIVE Unavailable [phone] Laurel Velasquez MD Unavailable [phone] HermanShahida huerta APRN COMMUNITY RELATIONS REPRESENTATIVE Unavailable Un available Marilin Montaño COMMUNITY RELATIONS REPRESENTATIVE Unavailable [phone] Esha Dewitt MD Unavailable [phone] Heather Mosquera MD Unavailable [phone] Paula Reza MD Unavailable Unavailable Esha Dewitt MD Unavailable [phone] Valdo Escamilla PA-C Unavailable [phone] Nohelia Abarca PA-C Unavailable [phone] Heather Mosquera MD Unavailable Fawad York MD Unavailable Encounter Details Date Type Department Care Team (Late st Contact Info) Description 10/30/2014 [facility] Mental Health & Addiction [place] [id number] [phone] [facility] Social History Tobacco Use Types Packs/Day Years Used Date Smoking Tobacco: Former Cigarettes Q uit: 12/09/2006 Cigars Smokeless Tobacco: Never Alcohol Use Standard Drinks/Week Comments Yes 0 (1 standard drink = 0.6 oz pur e alcohol) Very Occasionally Sex and Gender Information Value Date Recorded Sex Assigned at Male 09/20/2020 8:37 AM CDT Legal Sex Male 3:40 AM WASH HELPER Gender Identity Male 09/20/2020 8:37 AM CDT Sexual Orientation Straight 09/20/2020 8: 37 AM CDT 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 Not on file Not on jabier e documented as of this encounter Plan of Treatment Not on file documented as of this encounter Visit Diagnoses Not on filedocumented in this encounter Additional Health Concerns Infection Onset Date Last Indicated Resolved Time Rule Out COVID-19 02/15/2020 02/15/2020 02/16/2020 2:32 PM WASH HELPER Rule Out COVID-19 01/05/2021 01/05/2021 01/06/2021 12:57 PM CDT ESBL 01/05/2021 01/05/2021 Rule Out COVID-19 06/30/2021 06/30/2021 07/01/2021 9:34 AM CDT Rule Out COVID-19 07/25/2021 07/25/2021 07/25/2021 8:02 PM CDT documented as of this encounter Care Teams Automotive Project Engineer Relationship Specialty Start Date End Date Shahida Sutton APRN COMMUNITY RELATIONS REPRESENTATIVE PCP - General Nurse Practitioner 08/17/14 08/04/21 Shahida Sutton APRN COMMUNITY RELATIONS REPRESENTATIVE PCP - Assigned PCP 07/12/14 05/07/18 Paula Reza MD PCP - General Internal Medicine 08/05/21 Shahida Sutton APRN COMMUNITY RELATIONS REPRESENTATIVE Assigned PCP 07/12/14 09/30/21 Carolynn Ramon RN Personal Advocate & Liaison (PAL) 12/17/18 08/07/21 [place] [address] [place] [address] Assigned Musculoskeletal Provider 12/26/19 08/21/20 Brady Lion MD Assigned Heart and Vascular Provider 12/26/19 08/14/20 Nima France PA-C [address] [place] [address] Assigned Surgical Provider 05/19/20 08/21/20 Camille Chandler PA-C [address] [place] [address] Assigned Neuroscience Provider 05/19/20 09/14/20 Anabela Barakat STOCK PLAN ADMINISTRATOR COMMUNITY RELATIONS REPRESENTATIVE [address] [place] [address] Assigned Heart and Vascular Provider 08/15/20 08/05/21 Nima France PA-C [address] [place] [address] Assigned Musculoskeletal Provider 08/22/20 11/13/20 [place] [address] [place], [place] [address] Assigned Musculoskeletal Provider 11/14/20 12/04/20 Fawad York MD [address] [facility] [place] [place] [address] Assigned Musculoskeletal Provider 12/05/20 02/05/21 Roopa Almonte MD [address] [address] Endocrinology, Diabetes, and Metabolism 01/19/21 [place] [address] [facility] 300 [place] [address] Assigned Musculoskeletal Provider 02/06/21 09/16/21 Maryse Burton PA-C [address] [place] [address] Physician Harness Fitter Dermatology 04/14/21 Marquita Starkey MD [address] [facility] 200 [place], [place] [address] Internal Medicine 05/06/21 05/06/21 Roopa Almonte MD [address] [facility] 200 [place] [address] Hospitalist Endocrinology, Diabetes, and Metabolism 05/30/21 Griffin Joshi MD [address] [facility] [address] [place] [address] Cardiovascular Disease 07/25/21 Rina Magallon, RN Lead Bottom Turning Lathe Tender 07/29/21 07/11/22 Griffin Joshi MD [address] [place] [address] Assigned Heart and Vascular Provider 08/06/21 10/07/21 Roopa Almonte MD [address] [facility] 200 [place] [address] Assigned Endocrinology Provider 09/10/21 02/24/24 [place] [address] [facility] [place] [address] Assigned Musculoskeletal Provider 09/17/21 10/14/21 Lydia Bernstein PA-C [address] [place] [address] Assigned PCP 10/01/21 10/21/21 Rosa Maria Love [facility] Community Health Worker 10/06/21 07/11/22 [place] [address] [facility] 300 [place] [address] Assigned Musculoskeletal Provider 10/15/21 04/26/23 Paula Reza MD INACTIVE IN [place] 02/02/2024 Assigned PCP 10/22/21 12/23/21 Keerthi Miner, STOCK PLAN ADMINISTRATOR COMMUNITY RELATIONS REPRESENTATIVE [address] [place] [address] Assigned Heart and Vascular Provider 10/08/21 02/10/22 Shahida Sutton APRN COMMUNITY RELATIONS REPRESENTATIVE Assigned PCP 12/24/21 03/24/22 Porsha Michaels APRN COMMUNITY RELATIONS REPRESENTATIVE [address] [place] [address] Assigned Heart and Vascular Provider 02/11/22 05/12/22 Paula Reza MD [place]NACTIVE IN [place] 02/02/2024 Assigned PCP 03/25/22 04/07/22 Shahida Sutton APRN COMMUNITY RELATIONS REPRESENTATIVE [address] [place] [address] Assigned PCP 04/08/22 06/30/22 Daylin Ludwig, MIKI [facility] [address] [place] [address] Cardiac Rehabilitation Therapist 05/16/23 Laurel Velasquez MD [address] [place] [address] Assigned Heart and Vascular Provider 05/13/22 06/30/22 Daylin Ludwig, EP [facility] [address] [place] [address] Cardiac Rehabilitation Therapist 06/08/22 06/09/23 Paula Reza MD INACTIVE IN [place] 02/02/2024 Assigned PCP 07/01/22 07/07/22 Porsha Michaels APRN COMMUNITY RELATIONS REPRESENTATIVE [address] [place] [address] Assigned Heart and Vascular Provider 07/01/22 07/07/22 Laurel Velasquez MD [address] [place], [place] [address] Assigned Heart and Vascular Provider 07/08/22 08/04/22 Shahida Sutton APRN COMMUNITY RELATIONS REPRESENTATIVE Assigned PCP 07/08/22 09/08/22 Marilin Montaño, COMMUNITY RELATIONS REPRESENTATIVE [address] [place], [place] [address] Assigned Heart and Vascular Provider 08/05/22 02/24/24 Esha Dewitt MD [address] [address] Gastroenterology 09/06/22 Heather Mosquera MD [address] [place] [address] Internal Medicine 09/06/22 Paula Reza MD [place]NACTIVE IN [place] 02/02/2024 Assigned PCP 09/09/22 01/05/23 Esha Dewitt MD [address] [place] [address] Assigned Gastroenterology Provider 09/23/22 04/26/24 Valdo Escamilla PA-C [address] [place] [address] Assigned Neuroscience Provider 09/30/22 04/26/24 Nohelia Abarca PA-C [address] [place] [address] Physician Harness Fitter Gastroenterology 10/03/22 Heather Mosquera MD [address] [facility] 150 [place] [address] Assigned PCP 01/06/23 Fawad York MD 909 [place] [address] Assigned Musculoskeletal Provider 04/27/23 06/25/23 documented as of this encounter
--- OUTSIDE RECORDS SUMMARY | 2024-11-02 15:12 | XMS_ITS | Encounter Summary ---
Author Organization [facility] Address [address] [place] [address] Care Team Providers Care Agriculture Laborer Name Role Phone Dixon Carson MD Primary Care Provider Unavailable Mingo Aldana MD Primary Car e Provider HermanShahida APRN RN PRIMARY CARE Primary Care Provi ford Unavailable Herman, Shahida Cummings APRN RN PRIMARY CARE Unavailable Un available Herman, Shahida Cummings APRN RN PRIMARY CARE Unavailable Un available Carolynn Ramon RN Unavailable [phone] Augustine Callaway MD Unavailable Brady Lion MD Unavailable Un available Nima FranceC Unavailable [phone] Camille Chandler PA-C Unavailable [phone] Anabela Barakat APRN RN PRIMARY CARE Unavailable Nima FranceC Unavailable [phone] Basilio Morillo DO Unavailable [phone] Fawad York MD Unavailable [phone] Roopa Almonte MD Unavailable [phone] Augustine Callaway MD Unavailable Maryse Burton PA-C Unavailable Marquita Starkey MD Unavailable [phone] Roopa Almonte MD Unavailable [phone] Griffin Joshi MD Unavailable Rina Magallon RN Unavailable [phone] Paula Reza MD Primary Care Provider UnavailGriffin Youssef MD Unavailable Roopa Almonte MD Unavailable [phone] MarciaBasilio win Unavailable Lydia Bernstein PA-C Unavailable Rosa Maria Love Unavailable [phone] Augustine Callaway MD Unavailable Paula Reza MD Unavailable Unavailable Keerthi Miner APRN RN PRIMARY CARE Unavailable Herman, Shahida Cummings APRN RN PRIMARY CARE Unavailable Un available Porsha Michaels APRN RN PRIMARY CARE Unavailable [phone] Paula Reza MD Unavailable Unavailable HermanShahida huerta APRN RN PRIMARY CARE Unavailable Un available Daylin Ludwig Unavailable [phone] Laurel Velasquez MD Unavailable [phone] Daylin Ludwig Unavailable [phone] Paula Reza MD Unavailable Unavailable Porsha Michaels APRN RN PRIMARY CARE Unavailable [phone] Laurel Velasquez MD Unavailable [phone] Shahida Sutton APRN RN PRIMARY CARE Unavailable Un available Marilin Montaño RN PRIMARY CARE Unavailable Esha Dewitt MD Unavailable [phone] Heather Mosquera MD Unavailable [phone] Paula Reza MD Unavailable Unavailable Esha Dewitt MD Unavailable [phone] Valdo Escamilla PA-C Unavailable [phone] Nohelia Abarca PA-C Unavailable [phone] Heather Mosquera MD Unavailable [phone] Fawad York MD Unavailable [phone] Reason for Visit * Reason Onset Date Comments Refill Request 04/15/2008 Ambien Encounter Details Date Type Department Care Team (Late st Contact Info) Description 04/14/2008 MyC Refill [address] [address] Dixon Carson MD XXX HOSPITALIST/ED DOCTOR XXX Refill Request (Ambien) Social History Tobacco Use Types Packs/Day Years Used Date Smoking Tobacco: Former Cigarettes 0.5 25 1 - 12/09/2006 Pipe Cigars Comments:social smoker Alcohol Use Standard Drinks/Week Comments Yes 0 (1 standard drink = 0.6 oz pur e alcohol) 2 drinks/ week Sex and Gender Information Value Date Recorded Sex Assigned at Male 09/20/2020 8:37 AM CDT Legal 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 Gender Identity Male 09/20/2020 8:37 AM CDT Sexual Orientation Straight 09/20/2020 8: 37 AM CDT documented as of this encounter Miscellaneous Notes * Telephone Encounter - Elizabeth Piña - 04/15/2008 8:16 AM CST Date of Last OV: 02/24/08 Reason for visit: DM Provider seen: [place] When advised to RTC: none Labs pertaining to med: none Last filled was 03/09/08 Elizabeth Piña RN RONMENTAL PROFESSIONAL * Telephone Encounter - Elizabeth Piña - 04/15/2008 8:14 AM CSTMessage from MyChart: Original authorizing provider: Dixon Terrell would like a refill of the following medications: AMBIEN 10 MG OR TABS [Dixon Carson MD] Preferred pharmacy: [facility] Comment: RONMENTAL PROFESSIONAL documented in this encounter Plan of Treatment Not on file documented as of this encounter Visit Diagnoses Diagnosis Insomnia with sleep apnea, unspecified documented in this encounter Additional Health Concerns Infection Onset Date Last Indicated Resolved Time Rule Out COVID-19 02/15/2020 02/15/2020 02/16/2020 2:32 PM ENVIRONMENTAL PROFESSIONAL Rule Out COVID-19 01/05/2021 01/05/2021 01/06/2021 12:57 PM CDT ESBL 01/05/2021 01/05/2021 Rule Out COVID-19 06/30/2021 06/30/2021 07/01/2021 9:34 AM CDT Rule Out COVID-19 07/25/2021 07/25/2021 07/25/2021 8:02 PM CDT documented as of this encounter Care Teams Agriculture Laborer Relationship Specialty Start Date End Date Dixon Carson MD PCP - General 08/10/03 07/21/09 Mingo Aldana MD PCP - General Family Practice 07/22/09 07/12/14 Shahida Sutton APRN CNP PCP - General Nurse Practitioner 08/17/14 08/04/21 Shahida Sutton APRN RN PRIMARY CARE PCP - Assigned PCP 07/12/14 05/07/18 Paula Reza MD PCP - General Internal Medicine 08/05/21 Shahida Sutton APRN CNP Assigned PCP 07/12/14 09/30/21 Carolynn Ramon, KASIE Personal Advocate & Liaison (PAL) 12/17/18 08/07/21 [place] [address] [place] [address] Assigned Musculoskeletal Provider 12/26/19 08/21/20 Brady Lion MD Assigned Heart and Vascular Provider 12/26/19 08/14/20 Nima France PA-C [address] [facility] [address] [place] [address] Assigned Surgical Provider 05/19/20 08/21/20 Camille Chandler PA-C [address] [facility] [address] [place] [address] Assigned Neuroscience Provider 05/19/20 09/14/20 Anabela Barakat APRN CNP [address] [place] [address] Assigned Heart and Vascular Provider 08/15/20 08/05/21 Nima France PA-C [address] [facility] [address] [place] [address] Assigned Musculoskeletal Provider 08/22/20 11/13/20 [place] [address] [facility] [place] [address] Assigned Musculoskeletal Provider 11/14/20 12/04/20 Fawad York MD [address] [place] [address] Assigned Musculoskeletal Provider 12/05/20 02/05/21 Roopa Almonte MD [address] [facility] [address] [place] [address] Endocrinology, Diabetes, and Metabolism 01/19/21 [place] [address] [facility] [address] [place] [address] Assigned Musculoskeletal Provider 02/06/21 09/16/21 Maryse Burton PA-C [address] [place] [address] Physician Extractive Metallurgist Dermatology 04/14/21 Marquita Starkey MD [address] [facility] [address] [place] [address] Internal Medicine 05/06/21 05/06/21 Roopa Almonte MD [address] [facility] [address] [place] [address] Hospitalist Endocrinology, Diabetes, and Metabolism 05/30/21 Griffin Joshi MD [address] [facility] [address] [place] [address] Cardiovascular Disease 07/25/21 Rina Magallon, RN Lead Learning And Development Administrator 07/29/21 07/11/22 Griffin Joshi MD [address] [facility] [address] [place] [address] Assigned Heart and Vascular Provider 08/06/21 10/07/21 Roopa Almonte MD [address] [facility] [address] [place], [place] [address] Assigned Endocrinology Provider 09/10/21 02/24/24 [place] [address] [facility] [place], [place] [address] Assigned Musculoskeletal Provider 09/17/21 10/14/21 Lydia Bernstein, TRACEY [address] [place] [address] Assigned PCP 10/01/21 10/21/21 Rosa Maria Love CHW Community Health Worker 10/06/21 [place] [address] [place] [address] Assigned Musculoskeletal Provider 10/15/21 04/26/23 Paula Reza MD [place]CTIVE IN [place] 02/02/2024 Assigned PCP 10/22/21 12/23/21 Keerthi Miner CURVE CLEANER RN PRIMARY CARE [address] [place] [address] Assigned Heart and Vascular Provider 10/08/21 02/10/22 Shahida Sutton, CURVE CLEANER RN PRIMARY CARE Assigned PCP 12/24/21 03/24/22 Porsha Michaels APRN RN PRIMARY CARE [address] [place] [address] Assigned Heart and Vascular Provider 02/11/22 05/12/22 Paula Reza MD [place] 02/02/2024 Assigned PCP 03/25/22 04/07/22 Shahida Sutton APRN RN PRIMARY CARE [address] [place] [address] Assigned PCP 04/08/22 06/30/22 Daylin Ludwig, EP [facility] [address] [place] [address] Cardiac Rehabilitation Therapist 05/16/23 Laurel Velasquez MD [address] [place] [address] Assigned Heart and Vascular Provider 05/13/22 06/30/22 Daylin Ludwig, MIKI [facility] [address] [place] [address] Cardiac Rehabilitation Therapist 06/08/22 06/09/23 Paula Reza MD [place] 02/02/2024 Assigned PCP 07/01/22 07/07/22 Porsha Michaels APRN RN PRIMARY CARE [address] [place] [address] Assigned Heart and Vascular Provider 07/01/22 07/07/22 Laurel Velasquez MD [address] [place] [address] Assigned Heart and Vascular Provider 07/08/22 08/04/22 Shahida Sutton APRN RN PRIMARY CARE Assigned PCP 07/08/22 09/08/22 Marilin Montaño, RN PRIMARY CARE [address] [place] [address] Assigned Heart and Vascular Provider 08/05/22 02/24/24 Esha Dewitt MD [address] [address] MD Gastroenterology 09/06/22 Heather Mosquera MD [address] [place] [address] Internal Medicine 09/06/22 Paula Reza MD [place] 02/02/2024 Assigned PCP 09/09/22 01/05/23 Esha Dewitt MD [address] [place] [address] Assigned Gastroenterology Provider 09/23/22 04/26/24 Valdo Escamilla PA-C [address] [place] [address] Assigned Neuroscience Provider 09/30/22 04/26/24 Nohelia Abarca PA-C [address] [place] [address] Physician Extractive Metallurgist Gastroenterology 10/03/22 Heather Mosquera MD [address] [place] [address] Assigned PCP 01/06/23 Fawad York MD [address] [place] [address] Assigned Musculoskeletal Provider 04/27/23 06/25/23 documented as of this encounter
--- OUTSIDE RECORDS SUMMARY | 2024-11-02 15:12 | XMS_ITS | Encounter Summary ---
Author Organization [facility] Address [address] [place] [address] Care Team Providers Care Director Teen Post Name Role Phone Shahida Sutton PREKINDERGARTEN TEACHER DRILLER HAND Primary Care Provi ford Unavailable Shahida Sutton APRN DRILLER HAND Unavailable Un available Carolynn Ramon RN Unavailable [phone] Anabela Barakat PREKINDERGARTEN TEACHER DRILLER HAND Unavailable Nima France PA-C Unavailable [phone] Basilio Morillo DO Unavailable Fawad York MD Unavailable Roopa Almonte MD Unavailable Augustine Callaway MD Unavailable Maryse Burton PA-C Unavailable Marquita Starkey MD Unavailable [phone] Roopa Almonte MD Unavailable [phone] Griffin Joshi MD Unavailable Rina Magallon RN Unavailable [phone] Paula Reza MD Primary Care Provider UnavailGriffin Youssef MD Unavailable Roopa Almonte MD Unavailable [phone] IliaBasilio Unavailable [phone] Lydia Bernstein-C Unavailable Kate Rosa Maria CHW Unavailable [phone] Augustine Callaway MD Unavailable Paula Reza MD Unavailable Unavailable Keerthi Miner APRN DRILLER HAND Unavailable [phone] Herman, Shahida Cummings PREKINDERGARTEN TEACHER DRILLER HAND Unavailable Un available Porsha Michaels APRN DRILLER HAND Unavailable [phone] Paula Reza MD Unavailable Unavailable Herman, Shahida Cummings APRN DRILLER HAND Unavailable Un available Daylin Ludwig Unavailable [phone] Laurel Velasquez MD Unavailable [phone] Daylin Ludwig EP Unavailable [phone] Paula Reza MD Unavailable Unavailable Porsha Michaels APRN DRILLER HAND Unavailable [phone] Laurel Velasquez MD Unavailable [phone] Herman, Shahida Cummings APRN DRILLER HAND Unavailable Un available Marilin Montaño DRILLER HAND Unavailable [phone] Esha Dewitt MD Unavailable [phone] Heather Mosquera MD Unavailable [phone] Paula Reza MD Unavailable Unavailable Esha Dewitt MD Unavailable [phone] Valdo Escamilla-C Unavailable + [phone] Nohelia Abarca PA-C Unavailable [phone] Heather Mosquera MD Unavailable [phone] Fawad York MD Unavailable [phone] Encounter Details Date Type Department Care Team (Late st Contact Info) Description 11/09/2020 MyC Medical Advice [address] [address] Hiral Curran CMA Social History Tobacco Use Types Packs/Day [...] AM CDT Legal 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 Gender Identity Male 09/20/2020 8:37 AM CDT Sexual Orientation Straight 09/20/2020 8: 37 AM CDT 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 on file Not on file Not [...] as of this encounter Care Teams Director Teen Post Relationship Specialty Start Date End Date Shahida Sutton APRN CNP PCP - General Nurse Practitioner 08/17/14 08/04/21 Paula Reza MD PCP - General Internal Medicine 08/05/21 Shahida Sutton, PREKINDERGARTEN TEACHER DRILLER HAND Assigned PCP 07/12/14 09/30/21 Carolynn Ramon, KASIE Personal Advocate & Liaison (PAL) 12/17/18 08/07/21 Anabela Barakat, PREKINDERGARTEN TEACHER DRILLER HAND [address] [place] [address] Assigned Heart and Vascular Provider 08/15/20 08/05/21 Nima France PA-C [address] [facility] [address] [place] [address] Assigned Musculoskeletal Provider 08/22/20 11/13/20 [place] [address] [place], [place] [address] Assigned Musculoskeletal Provider 11/14/20 12/04/20 Fawad York MD [address] [place] [address] Assigned Musculoskeletal Provider 12/05/20 02/05/21 Roopa Almonte MD [address] [facility] [address] [place], [place] [address] Endocrinology, Diabetes, and Metabolism 01/19/21 [place] [address] [facility] [address] [place], [place] [address] Assigned Musculoskeletal Provider 02/06/21 09/16/21 Maryse Burton PA-C [address] [place] [address] Physician Repairer Finished Metal Dermatology 04/14/21 Marquita Starkey MD [address] [place] [address] Internal Medicine 05/06/21 05/06/21 Roopa Almonte MD [address] [facility] [address] [place] [address] Hospitalist Endocrinology, Diabetes, and Metabolism 05/30/21 Griffin Joshi MD [address] [place] [address] Cardiovascular Disease 07/25/21 Rina Magallon RN Lead Stacker Straightener 07/29/21 07/11/22 Griffin Joshi MD [address] [place] [address] Assigned Heart and Vascular Provider 08/06/21 10/07/21 Roopa Almonte MD [address] [place], [place] [address] Assigned Endocrinology Provider 09/10/21 02/24/24 [place] [address] [facility] [place] [address] Assigned Musculoskeletal Provider 09/17/21 10/14/21 Lydia Bernstein PA-C [address] [place] [address] Assigned PCP 10/01/21 10/21/21 Rosa Maria Love, W Community Health Worker 10/06/21 07/11/22 [place] [address] [place] [address] Assigned Musculoskeletal Provider 10/15/21 04/26/23 Paula Reza MD INACTIVE IN [place] 02/02/2024 Assigned PCP 10/22/21 12/23/21 Keerthi Miner APRN DRILLER HAND [address] [place] [address] Assigned Heart and Vascular Provider 10/08/21 02/10/22 Shahida Sutton APRN DRILLER HAND Assigned PCP 12/24/21 03/24/22 Porsha Michaels APRN DRILLER HAND [address] [place] [address] Assigned Heart and Vascular Provider 02/11/22 05/12/22 Paula Reza MD [place]CTIVE IN [place] 02/02/2024 Assigned PCP 03/25/22 04/07/22 Shahida Sutton APRN DRILLER HAND [address] [place] [address] Assigned PCP 04/08/22 06/30/[address] [facility] [address] [place] [address] Cardiac Rehabilitation Therapist 05/16/23 Laurel Velasquez MD [address] [place] [address] Assigned Heart and Vascular Provider 05/13/22 06/30/[address] [facility] [address] [place] [address] Cardiac Rehabilitation Therapist 06/08/22 06/09/23 Paula Reza MD INACTIVE IN [place] 02/02/2024 Assigned PCP 07/01/22 07/07/22 Porsha Michaels APRN DRILLER HAND [address] [place] [address] Assigned Heart and Vascular Provider 07/01/22 07/07/22 Laurel Velasquez MD [address] [place] [address] Assigned Heart and Vascular Provider 07/08/22 08/04/22 Shaihda Sutton APRN DRILLER HAND Assigned PCP 07/08/22 09/08/22 Marilin Montaño, DRILLER HAND [address] [place] [address] Assigned Heart and Vascular Provider 08/05/22 02/24/24 Esha Dewitt MD [address] [place] [address] [address] [place], [place] [address] Gastroenterology 09/06/22 Heather Mosquera MD [address] [place] [address] Internal Medicine 09/06/22 Paula Reza MD INACTIVE IN [place] 02/02/2024 Assigned PCP 09/09/22 01/05/23 Esha Dewitt MD [address] [facility] [address] [place] [address] Assigned Gastroenterology Provider 09/23/22 04/26/24 Valdo Escamilla PA-C [address] [place] [address] Assigned Neuroscience Provider 09/30/22 04/26/24 Nohelia Abarca PA-C [address] [place] [address] Physician Repairer Finished Metal Gastroenterology 10/03/22 Heather Mosquera MD [address] [place] [address] Assigned PCP 01/06/23 Fawad York MD [address] [place] [address] Assigned Musculoskeletal Provider 04/27/23 06/25/23 documented as of this encounter
--- OUTSIDE RECORDS SUMMARY | 2024-11-02 15:12 | XMS_ITS | Encounter Summary ---
Author Organization [facility] Address [address] [place] [address] Care Team Providers Care Skin Care Therapist Name Role Phone HermanShahida huerta APRN PADDED BOX SEWER Primary Care Provi ford Unavailable Herman, Shahida Cummings APRN PADDED BOX SEWER Unavailable Un available Herman, Shahida Cummings APRN PADDED BOX SEWER Unavailable Un available Carolynn Ramon RN Unavailable [phone] Augustien Callaway MD Unavailable Brady Lion MD Unavailable Un available Nima France PA-C Unavailable [phone] Camille Chandler PA-C Unavailable [phone] Anabela Barakat APRN PADDED BOX SEWER Unavailable Nima France PA-C Unavailable [phone] Basilio Morillo DO Unavailable [phone] Fawad York MD Unavailable [phone] Roopa Almonte MD Unavailable [phone] Augustine Callaway MD Unavailable Maryse Burton PA-C Unavailable [phone] Marquita Starkey MD Unavailable [phone] Roopa Almonte MD Unavailable [phone] Griffin Joshi MD Unavailable Rina Magallon RN Unavailable [phone] Paula Reza MD Primary Care Provider UnavailGriffin Youssef MD Unavailable Roopa Almonte MD Unavailable [phone] [facility] Unavailable Lydia Bernstein-C Unavailable Rosa Maria Love Unavailable [phone] Augustine Callaway MD Unavailable Paula Reza MD Unavailable Unavailable Keerthi Miner APRN PADDED BOX SEWER Unavailable [phone] Herman, Shahida Cummings APRN PADDED BOX SEWER Unavailable Un available Porsha Michaels APRN PADDED BOX SEWER Unavailable [phone] Paula Reza MD Unavailable Unavailable HermanShahida APRN PADDED BOX SEWER Unavailable Un available Daylin uLdwig Unavailable [phone] Laurel Velasquez MD Unavailable [phone] Daylin Ludwig Unavailable [phone] Paula Reza MD Unavailable Unavailable Porsha Michaels APRN PADDED BOX SEWER Unavailable [phone] Laurel Velasquez MD Unavailable [phone] HermanShahida huerta APRN PADDED BOX SEWER Unavailable Un available Marilin Montaño PADDED BOX SEWER Unavailable [phone] Esha Dewitt MD Unavailable [phone] Heather Mosquera MD Unavailable [phone] Paula Reza MD Unavailable Unavailable Esha Dewitt MD Unavailable [phone] Valdo Escamilla PA-C Unavailable Nohelia Abarca PA-C Unavailable [phone] Heather Mosquera MD Unavailable Fawad York MD Unavailable Reason for Visit * Reason Onset Date Comments Refill Request 02/18/2015 Encounter Details Date Type Department Care Team (Late st Contact Info) Description 02/18/[address] 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 Gender Identity Male 09/20/2020 8:37 AM CDT Sexual Orientation Straight 09/20/2020 8: 37 AM CDT 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 file Not on file Not on jabier e documented as of this encounter Plan of Treatment Not on file documented as of this encounter Visit Diagnoses Not on filedocumented in this encounter Additional Health Concerns Infection Onset Date Last Indicated Resolved Time Rule Out COVID-19 02/15/2020 02/15/2020 02/16/2020 2:32 PM ABSORPTION PLANT OPERATOR Rule Out COVID-19 01/05/2021 01/05/2021 01/06/2021 12:57 PM CDT ESBL 01/05/2021 01/05/2021 Rule Out COVID-19 06/30/2021 06/30/2021 07/01/2021 9:34 AM CDT Rule Out COVID-19 07/25/2021 07/25/2021 07/25/2021 8:02 PM CDT Assessment Noted Time PHQ-9 Depression Total Score: 5 01/31/20 15 7:38 AM ABSORPTION PLANT OPERATOR documented as of this encounter Care Teams Skin Care Therapist Relationship Specialty Start Date End Date Shahida Sutton APRN PADDED BOX SEWER PCP - General Nurse Practitioner 08/17/14 08/04/21 Shahida Sutton APRN PADDED BOX SEWER PCP - Assigned PCP 07/12/14 05/07/18 Paula Reza MD PCP - General Internal Medicine 08/05/21 Shahida Sutton APRN PADDED BOX SEWER Assigned PCP 07/12/14 09/30/21 Carolynn Ramon RN Personal Advocate & Liaison (PAL) 12/17/18 08/07/21 [place] [address] [place] [address] Assigned Musculoskeletal Provider 12/26/19 08/21/20 Brady Lion MD Assigned Heart and Vascular Provider 12/26/19 08/14/20 Nima France PA-C [address] [place] [address] Assigned Surgical Provider 05/19/20 08/21/20 Camille Chandler PA-C [address] [place] [id number] Assigned Neuroscience Provider 05/19/20 09/14/20 Anabela Barakat APRN PADDED BOX SEWER [address] [place] [address] Assigned Heart and Vascular Provider 08/15/20 08/05/21 Nima France PA-C [address] [facility] [address] [place] [address] Assigned Musculoskeletal Provider 08/22/20 11/13/20 [place] [address] [place] [address] Assigned Musculoskeletal Provider 11/14/20 12/04/20 Fawad York MD [address] [place], [place] [address] Assigned Musculoskeletal Provider 12/05/20 02/05/21 Roopa Almonte MD [address] [facility] [address] [place] [address] Endocrinology, Diabetes, and Metabolism 01/19/21 [place] [address] [facility] [address] [place] [address] Assigned Musculoskeletal Provider 02/06/21 09/16/21 Maryse Burton PA-C [address] [place] [address] Physician Supervisor Metal Placing Dermatology 04/14/21 Marquita Starkey MD [address] [facility] [address] [place], [place] [address] Internal Medicine 05/06/21 05/06/21 Roopa Almonte MD [address] [facility] [address] [place] [address] Hospitalist Endocrinology, Diabetes, and Metabolism 05/30/21 Griffin Joshi MD [address] [facility] [address] [place] [address] Cardiovascular Disease 07/25/21 Rina Magallon, RN Lead Construction Code Administrator 07/29/21 07/11/22 Griffin Joshi MD [address] [facility] [address] [place] [address] Assigned Heart and Vascular Provider 08/06/21 10/07/21 Roopa Almonte MD [address] [place] [address] 200 [place], [place] [address] Assigned Endocrinology Provider 09/10/21 02/24/24 [place] [address] [facility] [place] [address] Assigned Musculoskeletal Provider 09/17/21 10/14/21 Lydia Bernstein PA-C [address] [facility] [address] [place] [address] Assigned PCP 10/01/21 10/21/21 Rosa Maria Love CHW Community Health Worker 10/06/21 07/11/22 [place] [address] [place] [facility] [address] [place] [address] Assigned Musculoskeletal Provider 10/15/21 04/26/23 Paula Reza [place] 02/02/2024 Assigned PCP 10/22/21 12/23/21 Keerthi Miner APRN PADDED BOX SEWER [address] [place] [address] Assigned Heart and Vascular Provider 10/08/21 02/10/22 Shahida Sutton APRN PADDED BOX SEWER Assigned PCP 12/24/21 03/24/22 Porsha Michaels APRN PADDED BOX SEWER [address] [place] [address] Assigned Heart and Vascular Provider 02/11/22 05/12/22 Paula Reza MD [place] 02/02/2024 Assigned PCP 03/25/22 04/07/22 Shahida Sutton APRN PADDED BOX SEWER [address] [place] [address] Assigned PCP 04/08/22 06/30/22 Daylin Ludwig EP [facility] [address] [place] [address] Cardiac Rehabilitation Therapist 05/16/23 Laurel Velasquez MD [address] [place] [address] Assigned Heart and Vascular Provider 05/13/22 06/30/22 Daylin Ludwig EP [facility] [address] [place] [address] Cardiac Rehabilitation Therapist 06/08/22 06/09/23 Paula Reza MD [place]IVE [place] 02/02/2024 Assigned PCP 07/01/22 07/07/22 Porsha Michaels APRN PADDED BOX SEWER [address] [place] [address] Assigned Heart and Vascular Provider 07/01/22 07/07/22 Laurel Velasquez MD [address] [place] [address] Assigned Heart and Vascular Provider 07/08/22 08/04/22 Shahida Sutton APRN PADDED BOX SEWER Assigned PCP 07/08/22 09/08/22 Marilin Montaño PADDED BOX SEWER [address] [place] [address] Assigned Heart and Vascular Provider 08/05/22 02/24/24 Esha Dewitt MD [address] [place] [address]115 Gastroenterology 09/06/22 Heather Mosquera MD [address] [facility] [address] [place] [address] Internal Medicine 09/06/22 Paula Reza MD [place] 02/02/2024 Assigned PCP 09/09/22 01/05/23 Esha Dewitt MD [address] [address] Assigned Gastroenterology Provider 09/23/22 04/26/24 Valdo Escamilla PA-C [address] [place] [address] Assigned Neuroscience Provider 09/30/22 04/26/24 Nohelia Abarca PA-C [address] [place] [address] Physician Supervisor Metal Placing Gastroenterology 10/03/22 Heather Mosquera MD [address] [place] [address] Assigned PCP 01/06/23 Fawad York MD [address] [place] [address] Assigned Musculoskeletal Provider 04/27/23 06/25/23 documented as of this encounter
--- OUTSIDE RECORDS SUMMARY | 2024-11-02 15:12 | XMS_ITS | Encounter Summary ---
Author Organization [facility] Address [address] [place] [address] Care Team Providers Care Community Development Officer Name Role Phone Shahida Sutton GREEK PROFESSOR BOILER ATTENDANT Primary Care Provi ford Unavailable Shahida Sutton APRN BOILER ATTENDANT Unavailable Un available Carolynn Ramon RN Unavailable [phone] Anabela Barakat GREEK PROFESSOR BOILER ATTENDANT Unavailable Nima France PA-C Unavailable [phone] Basilio Morillo DO Unavailable Fawad York MD Unavailable Roopa Almonte MD Unavailable Augustine Callaway MD Unavailable Maryse Burton PA-C Unavailable Marquita Starkey MD Unavailable Roopa Almonte MD Unavailable Griffin Joshi MD Unavailable Rina Magallon RN Unavailable [phone] Paula Reza MD Primary Care Provider UnavailGriffin Youssef MD Unavailable Roopa Almonte MD Unavailable [phone] IliaBasilio Unavailable Lydia Bernstein-C Unavailable Kate Rosa Maria CHW Unavailable [phone] Augustine Callaway MD Unavailable Paula Reza MD Unavailable Unavailable Keerthi Miner APRN BOILER ATTENDANT Unavailable [phone] Herman, Shahida Cummings GREEK PROFESSOR BOILER ATTENDANT Unavailable Un available Porsha Michaels APRN BOILER ATTENDANT Unavailable [phone] Paula Reza MD Unavailable Unavailable Herman, Shahida Cummings APRN BOILER ATTENDANT Unavailable Un available Daylin Ludwig Unavailable [phone] Laurel Velasquez MD Unavailable [phone] Daylin Ludwig EP Unavailable [phone] Paula Reza MD Unavailable Unavailable Porsha Michaels APRN BOILER ATTENDANT Unavailable [phone] Laurel Velasquez MD Unavailable [phone] Herman, Shahida Cummings APRN BOILER ATTENDANT Unavailable Un available Marilin Montaño BOILER ATTENDANT Unavailable [phone] Esha Dewitt MD Unavailable [phone] Heather Mosquera MD Unavailable [phone] Paula Reza MD Unavailable Unavailable Esha Dewitt MD Unavailable [phone] Valdo Escamilla-C Unavailable + [phone] Nohelia Abarca PA-C Unavailable [phone] Heather Mosquera MD Unavailable [phone] Fawad York MD Unavailable [phone] Encounter Details Date Type Department Care Team (Late st Contact Info) Description 09/23/2020 MyC Medical Advice [address] [address] Shahida Sutton APRN CNP Social [...] AM CDT 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 Gender Identity Male 09/20/2020 8:37 AM CDT Sexual Orientation Straight 09/20/2020 8: 37 AM CDT 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 Here is what the business administrator is requesting: < < You must [...] Ramon Registered Nurse, ULISES (Patient Advocate Liason) [facility] [phone] documented in this encounter Plan of Treatment [...] as of this encounter Care Teams Community Development Officer Relationship Specialty Start Date End Date Shahida Sutton APRN BOILER ATTENDANT PCP - General Nurse Practitioner 08/17/14 08/04/21 Paula Reza MD PCP - General Internal Medicine 08/05/21 Shahida Sutton APRN BOILER ATTENDANT Assigned PCP 07/12/14 09/30/21 Carolynn Ramon RN Personal Advocate & Liaison (PAL) 12/17/18 08/07/21 Anabela Barakat APRN BOILER ATTENDANT [address] [place] [address] Assigned Heart and Vascular Provider 08/15/20 08/05/21 Nima France PA-C [address] [address] Assigned Musculoskeletal Provider 08/22/20 11/13/20 [place] [address] [facility] [place] [address] Assigned Musculoskeletal Provider 11/14/20 12/04/20 Fawad York MD [address] [place], [place] [address] Assigned Musculoskeletal Provider 12/05/20 02/05/21 Roopa Almonte MD [address] [facility] [address] [place], [place] [address] Endocrinology, Diabetes, and Metabolism 01/19/21 [place] [address] [facility] [address] [place] [address] Assigned Musculoskeletal Provider 02/06/21 09/16/21 Maryse Burton PA-C [address] [place] [address] Physician Press Officer Dermatology 04/14/21 Marquita Starkey MD [address] [facility] [address] [place] [address] Internal Medicine 05/06/21 05/06/21 Roopa Almonte MD [address] [facility] [address] [place] [address] Hospitalist Endocrinology, Diabetes, and Metabolism 05/30/21 Griffin Joshi MD [address] [facility] [address] [place] [address] Cardiovascular Disease 07/25/21 Rina Magallon, RN Lead Bar Waiter/Waitress 07/29/21 07/11/22 Griffin Joshi MD [address] [place] [address] Assigned Heart and Vascular Provider 08/06/21 10/07/21 Roopa Almonte MD [address] [facility] 200 [place] [address] Assigned Endocrinology Provider 09/10/21 02/24/24 [place] [address] [facility] [place] [address] Assigned Musculoskeletal Provider 09/17/21 10/14/21 Lydia Brenstein PA-C [address] [place] [address] Assigned PCP 10/01/21 10/21/21 Rosa Maria Love Cristina Community Health Worker 10/06/21 07/11/22 [place] [address] [facility] [address] [place] [address] Assigned Musculoskeletal Provider 10/15/21 04/26/23 Paula Reza MD INACTIVE IN [place] 02/02/2024 Assigned PCP 10/22/21 12/23/21 Keerthi Miner APRN BOILER ATTENDANT [address] [place] [id number] Assigned Heart and Vascular Provider 10/08/21 02/10/22 Shahida Sutton APRN BOILER ATTENDANT Assigned PCP 12/24/21 03/24/22 Porsha Michaels APRN BOILER ATTENDANT [address] [place] [address] Assigned Heart and Vascular Provider 02/11/22 05/12/22 Paula Reza MD [place] 02/02/2024 Assigned PCP 03/25/22 04/07/22 Shahida Sutton APRN BOILER ATTENDANT [address] [place] [address] Assigned PCP 04/08/22 06/30/22 Daylin Ludwig, MIKI [facility] [address] [place] [address] Cardiac Rehabilitation Therapist 05/16/23 Laurel Velasquez MD [address] [place] [address] Assigned Heart and Vascular Provider 05/13/22 06/30/22 Daylin Ludwig, EP [facility] [address] [place] [address] Cardiac Rehabilitation Therapist 06/08/22 06/09/23 Paula Reza MD [place]CTIVE IN [place] 02/02/2024 Assigned PCP 07/01/22 07/07/22 Porsha Michaels APRN BOILER ATTENDANT [address] [place] [address] Assigned Heart and Vascular Provider 07/01/22 07/07/22 Laurel Velasquez MD [address] [place], [place] [address] Assigned Heart and Vascular Provider 07/08/22 08/04/22 Shahida Sutton, GREEK PROFESSOR BOILER ATTENDANT Assigned PCP 07/08/22 09/08/22 Marilin Montaño, BOILER ATTENDANT [address] [place], [place] [address] Assigned Heart and Vascular Provider 08/05/22 02/24/24 Esha Dewitt MD [address] [address] Gastroenterology 09/06/22 Heather Mosquera MD [address] [place] [address] Internal Medicine 09/06/22 Paula Reza MD [place] IN [place] 02/02/2024 Assigned PCP 09/09/22 01/05/23 Esha Dewitt MD [address] [place] [address] Assigned Gastroenterology Provider 09/23/22 04/26/24 Valdo Escamilla PA-C [address] [place] [address] Assigned Neuroscience Provider 09/30/22 04/26/24 Nohelia Abarca PA-C [address] [place] [address] Physician Press Officer Gastroenterology 10/03/22 Heather Mosquera MD [address] [facility] [address] [place] [address] Assigned PCP 01/06/23 Fawad York MD [address] [place] [address] Assigned Musculoskeletal Provider 04/27/23 06/25/23 documented as of this encounter
--- OUTSIDE RECORDS SUMMARY | 2024-11-02 15:12 | XMS_ITS | Encounter Summary ---
Author Organization [facility] Address [address] [place] [address] Care Team Providers Care Bench Worker Helper Name Role Phone Shahida Sutton STRATEGY PLANNING CONSULTANT RESPIRATORY CLINICIAN Primary Care Provi ford Unavailable Shahida Sutton APRN RESPIRATORY CLINICIAN Unavailable Un available Carolynn Ramon RN Unavailable [phone] Anabela Barakat STRATEGY PLANNING CONSULTANT RESPIRATORY CLINICIAN Unavailable Basilio Morillo DO Unavailable [phone] Fawad York MD Unavailable [phone] Roopa Almonte MD Unavailable [phone] Augustine Callaway MD Unavailable Maryse Burton PA-C Unavailable [phone] Marquita Starkey MD Unavailable [phone] Roopa Almonte MD Unavailable [phone] Griffin Joshi MD Unavailable Rina Magallon RN Unavailable [phone] Paula Reza MD Primary Care Provider UnavailGriffin Youssef MD Unavailable Roopa Almonte MD Unavailable [phone] IliaBasilio DO Unavailable Lydia Bernstein PA-C Unavailable Kate Rosa Maria RACHELL Unavailable [phone] Augustine Callaway MD Unavailable Paula Reza MD Unavailable Unavailable Keerthi Miner APRN RESPIRATORY CLINICIAN Unavailable [phone] Shahida Sutton STRATEGY PLANNING CONSULTANT RESPIRATORY CLINICIAN Unavailable Un available Porsha Michaels APRN RESPIRATORY CLINICIAN Unavailable [phone] Paula Reza MD Unavailable Unavailable Herman, Shahida Cummings APRN RESPIRATORY CLINICIAN Unavailable Un available Daylin Ludwig Unavailable [phone] Laurel Velasquez MD Unavailable [phone] Daylin Ludwig Unavailable [phone] Paula Reza MD Unavailable Unavailable Porsha Michaels APRN RESPIRATORY CLINICIAN Unavailable [phone] Laurel Velasquez MD Unavailable [phone] HermanShahida huerta APRN RESPIRATORY CLINICIAN Unavailable Un available Marilin Montaño RESPIRATORY CLINICIAN Unavailable [phone] Esha Dewitt MD Unavailable [phone] Heather Mosquera MD Unavailable [phone] Paula Reza MD Unavailable Unavailable Esha Dewitt MD Unavailable [phone] Valdo Escamilla-C Unavailable [phone] Nohelia AbarcaC Unavailable [phone] Heather Mosquera MD Unavailable [phone] Fawad York MD Unavailable [phone] Reason for Visit * Reason Comments Medication Refill Encounter Details Date Type Department Care Team (Late st Contact Info) Description 11/17/2020 Refill [place] [address] [place] [address] [phone] Shahida Sutton APRN RESPIRATORY CLINICIAN Medication Refill Social History Tobacco Use Types [...] AM CDT Legal 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 Gender Identity Male 09/20/2020 8:37 AM CDT Sexual Orientation Straight 09/20/2020 8: 37 AM CDT 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 Not on file Not [...] documented as of this encounter Care Teams Bench Worker Helper Relationship Specialty Start Date End Date Shahida Sutton APRN RESPIRATORY CLINICIAN PCP - General Nurse Practitioner 08/17/14 08/04/21 Paula Reza MD PCP - General Internal Medicine 08/05/21 Shahida Sutton APRN RESPIRATORY CLINICIAN Assigned PCP 07/12/14 09/30/21 Carolynn Ramon, KASIE Personal Advocate & Liaison (PAL) 12/17/18 08/07/21 Anabela Barakat APRN RESPIRATORY CLINICIAN [address] [place] [address] Assigned Heart and Vascular Provider 08/15/20 08/05/21 [place] [address] [place], [place] [address] Assigned Musculoskeletal Provider 11/14/20 12/04/20 Fawad York MD [address] [place], [place] [address] Assigned Musculoskeletal Provider 12/05/20 02/05/21 Roopa Almonte MD [address] [facility] [facility] [address] [place] [address] Endocrinology, Diabetes, and Metabolism 01/19/21 [place] [address] [place] [address] Assigned Musculoskeletal Provider 02/06/21 09/16/21 Maryse Burton, PAAna MariaC [address] [facility] [place] [address] Physician Educational Psychology Teacher Dermatology 04/14/21 Marquita Starkey MD [address] [facility] [address] [address] [place] [address] Internal Medicine 05/06/21 05/06/21 Roopa Almonte MD [address] [facility] [address] [place] [address] Hospitalist Endocrinology, Diabetes, and Metabolism 05/30/21 Griffin Joshi MD [address] [place] [id number] Cardiovascular Disease 07/25/21 Rina Magallon, RN Lead Pump Tester 07/29/21 07/11/22 Griffin Joshi MD [address] [place] [address] Assigned Heart and Vascular Provider 08/06/21 10/07/21 Roopa Almonte MD [address] [place], [place] [address] Assigned Endocrinology Provider 09/10/21 02/24/24 [place] [address] [facility] [place] [id number] Assigned Musculoskeletal Provider 09/17/21 10/14/21 Lydia Bernstein PA-C [address] [place] [address] Assigned PCP 10/01/21 10/21/21 Rosa Maria Love CHW Community Health Worker 10/06/21 07/11/22 [place] [address] [place] [address] Assigned Musculoskeletal Provider 10/15/21 04/26/23 Paula Reza MD INACTIVE IN [place] 02/02/2024 Assigned PCP 10/22/21 12/23/21 Keerthi Miner APRN RESPIRATORY CLINICIAN [address] [place] [address] Assigned Heart and Vascular Provider 10/08/21 02/10/22 Shahida Sutton APRN RESPIRATORY CLINICIAN Assigned PCP 12/24/21 03/24/22 Porsha Michaels APRN RESPIRATORY CLINICIAN [address] [place] [address] Assigned Heart and Vascular Provider 02/11/22 05/12/22 Paula Reza MD INACTIVE IN [place] 02/02/2024 Assigned PCP 03/25/22 04/07/22 Shahida Sutton, STRATEGY PLANNING CONSULTANT RESPIRATORY CLINICIAN [address] [place] [address] Assigned PCP 04/08/22 06/30/22 Daylin Luwdig EP [facility] [address] [place] [address] Cardiac Rehabilitation Therapist 05/16/23 Laurel Velasquez MD [address] [place] [address] Assigned Heart and Vascular Provider 05/13/22 06/30/22 Daylin Ludwig EP [facility] [address] [place] [address] Cardiac Rehabilitation Therapist 06/08/22 06/09/23 Paula Reza MD INACTIVE IN [place] 02/02/2024 Assigned PCP 07/01/22 07/07/22 Porsha Michaels APRN RESPIRATORY CLINICIAN [address] [place] [address] Assigned Heart and Vascular Provider 07/01/22 07/07/22 Laurel Velasquez MD [address] [place], [place] [address] Assigned Heart and Vascular Provider 07/08/22 08/04/22 Shahida Sutton, DUANE RESPIRATORY CLINICIAN Assigned PCP 07/08/22 09/08/22 Marilin Montaño, RESPIRATORY CLINICIAN [address] [place] [address] Assigned Heart and Vascular Provider 08/05/22 02/24/24 Esha Dewitt MD [address] [place] [address] Gastroenterology 09/06/22 Heather Mosquera MD [address] [place] [address] Internal Medicine 09/06/22 Paula Reza MD INACTIVE IN [place] 02/02/2024 Assigned PCP 09/09/22 01/05/23 Esha Dewitt MD [address] [facility] 36 [place], [place] [address] Assigned Gastroenterology Provider 09/23/22 04/26/24 Valdo Escamilla PA-C [address] [place] [address] Assigned Neuroscience Provider 09/30/22 04/26/24 Nohelia Abarca PA-C [address] [place], [place] [address] Physician Educational Psychology Teacher Gastroenterology 10/03/22 Heather Mosquera MD [address] [place] [address] Assigned PCP 01/06/23 Fawad York MD [address] [place], [place] [address] Assigned Musculoskeletal Provider 04/27/23 06/25/23 documented as of this encounter
--- OUTSIDE RECORDS SUMMARY | 2024-11-02 15:12 | XMS_ITS | Encounter Summary ---
Author Organization [facility] Address [address] [place] [address] Care Team Providers Care Pictures Editor Name Role Phone Dixon Carson MD Primary Care Provider Unavailable Mingo Aldana MD Primary Car e Provider HermanShahida APRN CANAL EQUIPMENT MECHANIC Primary Care Provi ford Unavailable Herman, Shahida Cummings APRN CANAL EQUIPMENT MECHANIC Unavailable Un available Herman, Shahida Cummings APRN CANAL EQUIPMENT MECHANIC Unavailable Un available Carolynn Ramon RN Unavailable [phone] Augustine Callaway MD Unavailable Brady Lion MD Unavailable Un available Nima FranceC Unavailable [phone] Camille Chandler PA-C Unavailable [phone] Anabela Barakat APRN CANAL EQUIPMENT MECHANIC Unavailable Nima FranceC Unavailable [phone] Basilio Morillo DO Unavailable [phone] Fawad York MD Unavailable [phone] Roopa Almonte MD Unavailable [phone] Augustine Callaway MD Unavailable Maryse Burton PA-C Unavailable Marquita Starkey MD Unavailable [phone] Roopa Almonte MD Unavailable [phone] Griffin Joshi MD Unavailable Rina Magallon RN Unavailable [phone] Paula Reza MD Primary Care Provider UnavailGriffin Youssef MD Unavailable Roopa Almonte MD Unavailable [phone] MarciaBasilio win Unavailable Lydia Bernstein PA-C Unavailable Rosa Maria Love Unavailable [phone] Augustine Callaway MD Unavailable Paula Reza MD Unavailable Unavailable Keerthi Miner APRN CANAL EQUIPMENT MECHANIC Unavailable Herman, Shahida Cummings APRN CANAL EQUIPMENT MECHANIC Unavailable Un available Porsha Michaels APRN CANAL EQUIPMENT MECHANIC Unavailable [phone] Paula Reza MD Unavailable Unavailable HermanShahida huerta APRN CANAL EQUIPMENT MECHANIC Unavailable Un available Daylin Ludwig Unavailable [phone] Laurel Velasquez MD Unavailable [phone] Daylin Ludwig Unavailable [phone] Paula Reza MD Unavailable Unavailable Porsha Michaels APRN CANAL EQUIPMENT MECHANIC Unavailable [phone] Lauerl Velasquez MD Unavailable [phone] Shahida Sutton APRN CANAL EQUIPMENT MECHANIC Unavailable Un available Marilin Montaño CANAL EQUIPMENT MECHANIC Unavailable Esha Dewitt MD Unavailable [phone] Heather Mosquera MD Unavailable [phone] Paula Reza MD Unavailable Unavailable Esha Dewitt MD Unavailable [phone] Valdo Escamilla PA-C Unavailable [phone] Nohelia Abarca PA-C Unavailable [phone] Heather Mosquera MD Unavailable [phone] Fawad York MD Unavailable [phone] Reason for Visit * Reason Onset Date Comments MyChart Communication 08/22/2006 nexium Encounter Details Date Type Department Care Team (Late st Contact Info) Description 08/22/2006 MyC Refill [address] [phone] Dixon Carson MD XXX HOSPITALIST/ED DOCTOR XXX MyChart Communication (nexium) Social History Tobacco Use Types Packs/Day Years Used Date Smoking Tobacco: Every Day Cigarettes 0.5 25 Pipe Cigars Comments:social smoker Alcohol Use Standard Drinks/Week Comments Yes 0 (1 standard drink = 0.6 oz pur e alcohol) 2 drinks/ week Sex and Gender Information Value Date Recorded Sex Assigned at Male 09/20/2020 8:37 AM CDT 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 Gender Identity Male 09/20/2020 8:37 AM CDT Sexual Orientation Straight 09/20/2020 8: 37 AM CDT documented as of this encounter Miscellaneous Notes * Telephone Encounter - Shayla Cordero - 08/22/2006 1:12 PM CDTMessage from [employer]: Original authorizing provider: Olivier Terrell would like a refill of the following medications: NEXIUM 40 MG OR CPDR [Olivier Frances MD] Preferred pharmacy: [facility] Comment: Thank you for your efforts on [...] Out COVID-19 02/15/2020 02/15/2020 02/16/2020 2:32 PM HEBREW PROFESSOR Rule Out COVID-19 01/05/2021 01/05/2021 01/06/2021 12:57 PM CDT ESBL 01/05/2021 01/05/2021 Rule Out COVID-19 06/30/2021 06/30/2021 07/01/2021 9:34 AM CDT Rule Out COVID-19 07/25/2021 07/25/2021 07/25/2021 8:02 PM CDT documented as of this encounter Care Teams Pictures Editor Relationship Specialty Start Date End Date Dixon Carson MD PCP - General 08/10/03 07/21/09 Mingo Aldana MD PCP - General Family Practice 07/22/09 07/12/14 Shahida Sutton APRN CANAL EQUIPMENT MECHANIC PCP - General Nurse Practitioner 08/17/14 08/04/21 Shahida Sutton APRN CANAL EQUIPMENT MECHANIC PCP - Assigned PCP 07/12/14 05/07/18 Paula Reza MD PCP - General Internal Medicine 08/05/21 Shahida Sutton APRN CANAL EQUIPMENT MECHANIC Assigned PCP 07/12/14 09/30/21 Carolynn Ramon RN Personal Advocate & Liaison (PAL) 12/17/18 08/07/21 [place] [address] [place] [address] Assigned Musculoskeletal Provider 12/26/19 08/21/20 Brady Lion MD Assigned Heart and Vascular Provider 12/26/19 08/14/20 Nima France PA-C [address] [facility] [address] [place] [address] Assigned Surgical Provider 05/19/20 08/21/20 Camille Chandler PA-C [address] [facility] [address] [place], [place] [address] Assigned Neuroscience Provider 05/19/20 09/14/20 Anabela Barakat APRN CANAL EQUIPMENT MECHANIC [address] [place] [address] Assigned Heart and Vascular Provider 08/15/20 08/05/21 Nima France PA-C [address] [facility] [address] [place] [address] Assigned Musculoskeletal Provider 08/22/20 11/13/20 [place] [address] [place] [address] Assigned Musculoskeletal Provider 11/14/20 12/04/20 Fawad York MD [address] [place] [address] Assigned Musculoskeletal Provider 12/05/20 02/05/21 Roopa Almonte MD [address] [place] [address] Endocrinology, Diabetes, and Metabolism 01/19/21 [place] [address] [address] [facility] [address] [place] [address] Assigned Musculoskeletal Provider 02/06/21 09/16/21 Maryse Burton PA-C [address] [place] [address] Physician Telecom Analyst Dermatology 04/14/21 Marquita Starkey MD [address] [facility] 200 [place] [address] Internal Medicine 05/06/21 05/06/21 Roopa Almonte MD [address] [facility] 200 [place] [address] Hospitalist Endocrinology, Diabetes, and Metabolism 05/30/21 Griffin Joshi MD [address] [facility] [address] [place] [address] Cardiovascular Disease 07/25/21 Rina Magallon, RN Lead Evp Global Product Leadership 07/29/21 07/11/22 Griffin Joshi MD [address] [facility] [address] [place] [address] Assigned Heart and Vascular Provider 08/06/21 10/07/21 Roopa Almonte MD [address] [place] [address] Assigned Endocrinology Provider 09/10/21 02/24/24 [place] [address] [facility] [place] [address] Assigned Musculoskeletal Provider 09/17/21 10/14/21 Lydia Bernstein PA-C [address] [place] [address] Assigned PCP 10/01/21 10/21/21 Shersophiealison Rosa Maria, W Community Health Worker 10/06/21 [place] [address] [place] [address] Assigned Musculoskeletal Provider 10/15/21 04/26/23 Paula Reza MD [place] 02/02/2024 Assigned PCP 10/22/21 12/23/21 Keerthi Miner APRN CANAL EQUIPMENT MECHANIC [address] [place], [place] [address] Assigned Heart and Vascular Provider 10/08/21 02/10/22 Shahida Sutton APRN CANAL EQUIPMENT MECHANIC Assigned PCP 12/24/21 03/24/22 Porsha Michaels APRN CANAL EQUIPMENT MECHANIC [address] [place] [address] Assigned Heart and Vascular Provider 02/11/22 05/12/22 Paula Reza MD [place] 02/02/2024 Assigned PCP 03/25/22 04/07/22 Shahida Sutton APRN CANAL EQUIPMENT MECHANIC [address] [place] [address] Assigned PCP 04/08/22 06/30/[address] [facility] [address] [place] [address] Cardiac Rehabilitation Therapist 05/16/23 Laurel Velasquez MD [address] [place] [address] Assigned Heart and Vascular Provider 05/13/22 06/30/[address] [facility] [address] [place] [address] Cardiac Rehabilitation Therapist 06/08/22 06/09/23 Paula Reza MD [place] 02/02/2024 Assigned PCP 07/01/22 07/07/22 Porsha Michaels APRN CANAL EQUIPMENT MECHANIC [address] [place] [address] Assigned Heart and Vascular Provider 07/01/22 07/07/22 Laurel Velasquez MD [address] [place] [address] Assigned Heart and Vascular Provider 07/08/22 08/04/22 Shahida Sutton, DUANE CANAL EQUIPMENT MECHANIC Assigned PCP 07/08/22 09/08/22 Marilin Montaño, CANAL EQUIPMENT MECHANIC [address] [place] [address] Assigned Heart and Vascular Provider 08/05/22 02/24/24 Esha Dewitt MD [address] [place] [address] 36 [place], [place] [address] Gastroenterology 09/06/22 Heather Mosquera MD [address] [place] [address] Internal Medicine 09/06/22 Paula Reza MD [place] 02/02/2024 Assigned PCP 09/09/22 01/05/23 Esha Dewitt MD [address] [place] [address] 36 [place] [address] Assigned Gastroenterology Provider 09/23/22 04/26/24 Valdo Escamilla PA-C [address] [place] [address] Assigned Neuroscience Provider 09/30/22 04/26/24 Nohelia Abarca PA-C [address] [place] [address] Physician Telecom Analyst Gastroenterology 10/03/22 Heather Mosquera MD [address] [place] [address] Assigned PCP 01/06/23 Fawad York MD [address] [place] [address] Assigned Musculoskeletal Provider 04/27/23 06/25/23 documented as of this encounter
--- OUTSIDE RECORDS SUMMARY | 2024-11-02 15:12 | XMS_ITS | Encounter Summary ---
Author Organization [facility] Address [address] [place] [address] Care Team Providers Care Salary And Wage Administrator Name Role Phone Dixon Carson MD Primary Care Provider Unavailable Mingo Aldana MD Primary Car e Provider HermanShahida APRN CONTRACT AGENT Primary Care Provi ford Unavailable Herman, Shahida Cummings APRN CONTRACT AGENT Unavailable Un available Herman, Shahida Cummings APRN CONTRACT AGENT Unavailable Un available Carolynn Ramon RN Unavailable [phone] Augustine Callaway MD Unavailable Brady Lion MD Unavailable Un available Nima FranceC Unavailable [phone] Camille Chandler PA-C Unavailable [phone] Anabela Barakat APRN CONTRACT AGENT Unavailable Nima FranceC Unavailable [phone] Basilio Morillo DO Unavailable [phone] Fawad York MD Unavailable [phone] Roopa Almonte MD Unavailable [phone] Augustine Callaway MD Unavailable Maryse Burton PA-C Unavailable Marquita Starkey MD Unavailable [phone] Roopa Almonte MD Unavailable [phone] Griffin Joshi MD Unavailable Rina Magallon RN Unavailable [phone] Paula Reza MD Primary Care Provider UnavailGriffin Youssef MD Unavailable Roopa Almonte MD Unavailable [phone] MarciaBasilio win Unavailable Lydia Bernstein PA-C Unavailable Rosa Maria Love Unavailable [phone] Augustine Callaway MD Unavailable Paula Reza MD Unavailable Unavailable Keerthi Miner APRN CONTRACT AGENT Unavailable Herman, Shahida Cummings APRN CONTRACT AGENT Unavailable Un available Porsha Michaels APRN CONTRACT AGENT Unavailable [phone] Paula Reza MD Unavailable Unavailable HermanShahida huerta APRN CONTRACT AGENT Unavailable Un available Daylin Ludwig Unavailable [phone] Laurel Velasquez MD Unavailable [phone] Daylin Ludwig Unavailable [phone] Paula Reza MD Unavailable Unavailable Porsha Michaels APRN CONTRACT AGENT Unavailable [phone] Laurel Velasquez MD Unavailable [phone] Shahida Sutton APRN CONTRACT AGENT Unavailable Un available Marilin Montaño CONTRACT AGENT Unavailable Esha Dewitt MD Unavailable [phone] Heather Mosquera MD Unavailable Paula Reza MD Unavailable Unavailable Esha Dewitt MD Unavailable [phone] Valdo Escamilla PA-C Unavailable [phone] Nohelia Abarca PA-C Unavailable [phone] Heather Mosquera MD Unavailable Fawad York MD Unavailable [phone] Encounter Details Date Type Department Care Team (Late st Contact Info) Description 01/09/2007 MyC Medical Advice [address] [address] Mingo Aldana MD [facility] [address] [place], [place] [address] OTHER MALAISE AND FATIGUE (Primary Dx) Social [...] AM CDT Legal 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 Porsha Marley ETHNOLOGY PROFESSOR TESTER documented in this encounter Plan of Treatment Not on file documented as of this encounter Visit Diagnoses Diagnosis Other malaise and fatigue- Primary documented in this encounter Additional Health Concerns Infection Onset Date Last Indicated Resolved Time Rule Out COVID-19 02/15/2020 02/15/2020 02/16/2020 2:32 PM HERD TESTER Rule Out COVID-19 01/05/2021 01/05/2021 01/06/2021 12:57 PM CDT ESBL 01/05/2021 01/05/2021 Rule Out COVID-19 06/30/2021 06/30/2021 07/01/2021 9:34 AM CDT Rule Out COVID-19 07/25/2021 07/25/2021 07/25/2021 8:02 PM CDT documented as of this encounter Care Teams Salary And Wage Administrator Relationship Specialty Start Date End Date Dixon Carson MD PCP - General 08/10/03 07/21/09 Mingo Aldana MD PCP - General Family Practice 07/22/09 07/12/14 Shahida Sutton APRN CONTRACT AGENT PCP - General Nurse Practitioner 08/17/14 08/04/21 Shahida Sutton APRN CONTRACT AGENT PCP - Assigned PCP 07/12/14 05/07/18 Paula Reza MD PCP - General Internal Medicine 08/05/21 Shahida Sutton APRN CONTRACT AGENT Assigned PCP 07/12/14 09/30/21 Carolynn Ramon RN Personal Advocate & Liaison (PAL) 12/17/18 08/07/21 [place] [address] [place] [id number] Assigned Musculoskeletal Provider 12/26/19 08/21/20 Brady Lion MD Assigned Heart and Vascular Provider 12/26/19 08/14/20 Nima France PA-C [address] [address] Assigned Surgical Provider 05/19/20 08/21/20 Camille Chandler PA-C [address] [facility] [address] [place] [address] Assigned Neuroscience Provider 05/19/20 09/14/20 Anabela Barakat APRN CONTRACT AGENT [address] [place] [address] Assigned Heart and Vascular Provider 08/15/20 08/05/21 Nima France PA-C [address] [facility] [address] [place], [place] [address] Assigned Musculoskeletal Provider 08/22/20 11/13/20 [place] [address] [facility] [place], [place] [address] Assigned Musculoskeletal Provider 11/14/20 12/04/20 Fawad York MD [address] [place], [place] [address] Assigned Musculoskeletal Provider 12/05/20 02/05/21 Roopa Almonte MD [address] [facility] 200 [place] [address] Endocrinology, Diabetes, and Metabolism 01/19/21 [place] [address] [place] [address] Assigned Musculoskeletal Provider 02/06/21 09/16/21 Maryse Burton PA-C [address] [place] [address] Physician Convolute Tube Winder Dermatology 04/14/21 Marquita Starkey MD [address] [facility] [address] [place] [address] Internal Medicine 05/06/21 05/06/21 Roopa Almonte MD [address] [facility] 200 [place], [place] [address] Hospitalist Endocrinology, Diabetes, and Metabolism 05/30/21 Griffin Joshi MD [address] [place] [address] Cardiovascular Disease 07/25/21 Rina Magallon, RN Lead Insights Analyst 07/29/21 07/11/22 Griffin Joshi MD [address] [place] [address] Assigned Heart and Vascular Provider 08/06/21 10/07/21 Roopa Almonte MD [address] [place] [address] [address] [place], [place] [address] Assigned Endocrinology Provider 09/10/21 02/24/24 [place] [address] [facility] [place] [address] Assigned Musculoskeletal Provider 09/17/21 10/14/21 Lydia Bernstein PA-C [address] [place] [address] Assigned PCP 10/01/21 10/21/21 Rosa Maria Love CHW Community Health Worker 10/06/21 [place] [address] [place] [address] Assigned Musculoskeletal Provider 10/15/21 04/26/23 Paula Reza MD [place] 02/02/2024 Assigned PCP 10/22/21 12/23/21 Keerthi Miner APRN CONTRACT AGENT [address] [place] [id number] Assigned Heart and Vascular Provider 10/08/21 02/10/22 Shahida Sutton APRN CONTRACT AGENT Assigned PCP 12/24/21 03/24/22 Porsha Michaels APRN CONTRACT AGENT [address] [address] Assigned Heart and Vascular Provider 02/11/22 05/12/22 Paula Reza MD [place] 02/02/2024 Assigned PCP 03/25/22 04/07/22 Shahida Sutton APRN CONTRACT AGENT [address] [address] Assigned PCP 04/08/22 06/30/22 Daylin Ludwig EP [facility] [address] [address] Cardiac Rehabilitation Therapist 05/16/23 Laurel Velasquez MD [address] [place] [address] Assigned Heart and Vascular Provider 05/13/22 06/30/22 Daylin Ludwig EP [facility] [address] [place] [address] Cardiac Rehabilitation Therapist 06/08/22 06/09/23 Paula Reza MD [place] 02/02/2024 Assigned PCP 07/01/22 07/07/22 Porsha Michaels APRN CONTRACT AGENT [address] [place] [address] Assigned Heart and Vascular Provider 07/01/22 07/07/22 Laurel Velasquez MD [address] [place] [address] Assigned Heart and Vascular Provider 07/08/22 08/04/22 Shahida Sutton APRN CONTRACT AGENT Assigned PCP 07/08/22 09/08/22 Marilin Montaño, CONTRACT AGENT [address] [place] [address] Assigned Heart and Vascular Provider 08/05/22 02/24/24 Esha Dewitt MD [address] [place] [address] [address] [place] [address] Gastroenterology 09/06/22 Heather Mosquera MD [address] [place] [address] Internal Medicine 09/06/22 Paula Reza MD [place] 02/02/2024 Assigned PCP 09/09/22 01/05/23 Esha Dewitt MD [address] [facility] 36 [place], [place] [address] Assigned Gastroenterology Provider 09/23/22 04/26/24 Valdo Escamilla PA-C [address] [place], [place] [address] Assigned Neuroscience Provider 09/30/22 04/26/24 Nohelia Abarca PA-C [address] [place], [place] [address] Physician Convolute Tube Winder Gastroenterology 10/03/22 Heather Mosquera MD [address] [place], [place] [address] Assigned PCP 01/06/23 Fawad York MD [address] [place], [place] [address] Assigned Musculoskeletal Provider 04/27/23 06/25/23 documented as of this encounter
--- OUTSIDE RECORDS SUMMARY | 2024-11-02 15:12 | XMS_ITS | Encounter Summary ---
Author Organization [facility] Address [address] [place] [address] Care Team Providers Care Unit Manager [employer] Name Role Phone Shahida Sutton REVENUE STAMP CLERK SALES AGENT [employer] Primary Care Provi ford Unavailable Shahida Sutton APRN SALES AGENT [employer] Unavailable Un available Carolynn Ramon RN Unavailable [phone] Anabela Barakat APRN SALES AGENT [employer] Unavailable Roopa Almonte MD Unavailable [phone] Augustine Callaway MD Unavailable Maryse Burton PA-C Unavailable [phone] Marquita Starkey MD Unavailable [phone] Roopa Almonte MD Unavailable [phone] Griffin Joshi MD Unavailable Rina Magallon RN Unavailable [phone] Paula Reza MD Primary Care Provider UnavailGriffin Youssef MD Unavailable Roopa Almonte MD Unavailable [phone] Basilio Morillo DO Unavailable [phone] Lydia Bernstein PA-C Unavailable Rosa Maria Love Unavailable [phone] Augustine Callaway MD Unavailable Paula Reza MD Unavailable Unavailable Keerthi Miner APRN SALES AGENT [employer] Unavailable [phone] HermanShahida huerta APRN SALES AGENT [employer] Unavailable Un available Porsha Michaels APRN SALES AGENT [employer] Unavailable [phone] Paula Reza MD Unavailable Unavailable HermanShahida huerta APRN SALES AGENT [employer] Unavailable Un available Daylin Ludwig Unavailable [phone] Laurel Velasquez MD Unavailable [phone] Daylin Ludwig Unavailable [phone] Paula Reza MD Unavailable Unavailable Porsha Michaels APRN SALES AGENT [employer] Unavailable [phone] Laurel Velasquez MD Unavailable [phone] Shahida Sutton APRN SALES AGENT [employer] Unavailable Un available Marilin Montaño SALES AGENT [employer] Unavailable [phone] Esha Dewitt MD Unavailable [phone] Heather Mosquera MD Unavailable [phone] Paula Reza MD Unavailable Unavailable Esha Dewitt MD Unavailable [phone] Valdo Escamilla PA-C Unavailable + [phone] Nohelia Abarca-C Unavailable [phone] Heather Mosquera MD Unavailable [phone] Fawad York MD Unavailable [phone] Reason for Visit * Reason Comments Medication Refill Encounter Details Date Type Department Care Team (Late st Contact Info) Description 02/21/[address] [address] Herman, Shahida Zoila, REVENUE STAMP CLERK SALES AGENT [employer] Medication Refill Social History Tobacco Use Types [...] AM CDT Legal Sex Male 3:40 AM FACIALIST Gender Identity Male 09/20/2020 8:37 AM CDT Sexual Orientation Straight 09/20/2020 8: 37 AM CDT 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 No / Unsure 02/07/2021 7:55 AM FACIALIST documented as of this encounter Miscellaneous Notes * Telephone Encounter - Marilin Cuevas RN - 02/21/2021 2:10 PM FACIALIST Routing refill request to provider for review/approval because: Drug not on the [facility] refill protocol Marilin Cuevas RN [facility] -- Triage Nurse ALIST documented in this encounter Plan of Treatment [...] documented as of this encounter Care Teams Unit Manager [employer]ience Stores Relationship Specialty Start Date End Date Shahida Sutton APRN SALES AGENT [employer] PCP - General Nurse Practitioner 08/17/14 08/04/21 Paula Reza MD PCP - General Internal Medicine 08/05/21 Shahida Sutton, REVENUE STAMP CLERK SALES AGENT [employer] Assigned PCP 07/12/14 09/30/21 Carolynn Ramon, KASIE Personal Advocate & Liaison (PAL) 12/17/18 08/07/21 Anabela Barakat, REVENUE STAMP CLERK SALES AGENT [employer] [address] [place] [address] Assigned Heart and Vascular Provider 08/15/20 08/05/21 Roopa Almonte MD [address] [facility] [address] [place], [place] [address] Endocrinology, Diabetes, and Metabolism 01/19/21 [place] [address] [facility] [address] [place] [address] Assigned Musculoskeletal Provider 02/06/21 09/16/21 Maryse Burton, PAAna MariaC [address] [place] [address] Physician Louver Door Assembler Dermatology 04/14/21 Marquita Starkey MD [address] [place] [address] Internal Medicine 05/06/21 05/06/21 Roopa Almonte MD [address] [place] [address] Hospitalist Endocrinology, Diabetes, and Metabolism 05/30/21 Griffin Joshi MD [address] [facility] [address] [place] [address] Cardiovascular Disease 07/25/21 Rina Magallon, RN Lead Youth Care Worker 07/29/21 07/11/22 Griffin Joshi MD [address] [facility] [address] [place] [address] Assigned Heart and Vascular Provider 08/06/21 10/07/21 Roopa Almonte MD [address] [facility] 200 [place], [place] [address] Assigned Endocrinology Provider 09/10/21 02/24/24 [place] [address] [facility] [place] [address] Assigned Musculoskeletal Provider 09/17/21 10/14/21 Lydia Bernstein PA-C [address] [facility] 150 [place] [address] Assigned PCP 10/01/21 10/21/21 Rosa Maria Love Cristina Community Health Worker 10/06/21 07/11/22 [place] [address] [facility] [address] [place] [address] Assigned Musculoskeletal Provider 10/15/21 04/26/23 Paula Reza MD [place] 02/02/2024 Assigned PCP 10/22/21 12/23/21 Keerthi Miner APRN SALES AGENT [employer] [address] [place] [address] Assigned Heart and Vascular Provider 10/08/21 02/10/22 Shahida Sutton APRN SALES AGENT [employer] Assigned PCP 12/24/21 03/24/22 Porsha Michaels APRN SALES AGENT [employer] [address] [place] [address] Assigned Heart and Vascular Provider 02/11/22 05/12/22 Paula Reza [place] 02/02/2024 Assigned PCP 03/25/22 04/07/22 Shahida Sutton APRN SALES AGENT [employer] [address] [place] [address] Assigned PCP 04/08/22 06/30/22 Daylin Ludwig, EP [facility] [address] [place] [address] Cardiac Rehabilitation Therapist 05/16/23 Laurel Velasquez MD [address] [place] [address] Assigned Heart and Vascular Provider 05/13/22 06/30/22 Daylin Ludwig, EP [facility] [address] [place] [address] Cardiac Rehabilitation Therapist 06/08/22 06/09/23 Paula Reza MD [place] 02/02/2024 Assigned PCP 07/01/22 07/07/22 Porsha Michaels, DUANE SALES AGENT [employer] [address] [place] [address] Assigned Heart and Vascular Provider 07/01/22 07/07/22 Laurel Velasquez MD [address] [place] [address] Assigned Heart and Vascular Provider 07/08/22 08/04/22 Shahida Sutton, REVENUE STAMP CLERK SALES AGENT [employer] Assigned PCP 07/08/22 09/08/22 Marilin Montaño, SALES AGENT [employer] [address] [place] [address] Assigned Heart and Vascular Provider 08/05/22 02/24/24 Esha Dewitt MD [address] [facility] [address] [place] [address] Gastroenterology 09/06/22 Heather Mosquera MD [address] [place] [address] Internal Medicine 09/06/22 Paula Reza MD [place] 02/02/2024 Assigned PCP 09/09/22 01/05/23 Esha Dewitt MD [address] [facility] [address] [place] [address] Assigned Gastroenterology Provider 09/23/22 04/26/24 Valdo Escamilla PA-C [address] [place], [place] [address] Assigned Neuroscience Provider 09/30/22 04/26/24 Nohelia Abarca PA-C [address] [place] [address] Physician Louver Door Assembler Gastroenterology 10/03/22 Heather Mosquera MD [address] [place] [address] Assigned PCP 01/06/23 Fawad York MD [address] [place], [place] [address] Assigned Musculoskeletal Provider 04/27/23 06/25/23 documented as of this encounter
--- OUTSIDE RECORDS SUMMARY | 2024-11-02 15:12 | XMS_ITS | Encounter Summary ---
Author Organization [facility] Address [address] [place] [address] Care Team Providers Care Horseradish Grinder Name Role Phone Dixon Carson MD Primary Care Provider Unavailable Mingo Aldana MD Primary Car e Provider HermanShahida APRN AUTOMOBILE RADIATOR MECHANIC Primary Care Provi ford Unavailable Herman, Shahida Cummings APRN AUTOMOBILE RADIATOR MECHANIC Unavailable Un available Herman, Shahida Cummings APRN AUTOMOBILE RADIATOR MECHANIC Unavailable Un available Carolynn Ramon RN Unavailable [phone] Augustine Callaway MD Unavailable Brady Lion MD Unavailable Un available Nima FranceC Unavailable [phone] Camille Chandler PA-C Unavailable [phone] Anabela Barakat APRN AUTOMOBILE RADIATOR MECHANIC Unavailable Nima FranceC Unavailable [phone] Basilio Morillo DO Unavailable [phone] Fawad York MD Unavailable [phone] Roopa Almonte MD Unavailable [phone] Augustine Callaway MD Unavailable Maryse Burton PA-C Unavailable Marquita Starkey MD Unavailable [phone] Roopa Almonte MD Unavailable [phone] Griffin Joshi MD Unavailable Rina Magallon RN Unavailable [phone] Paula Reza MD Primary Care Provider UnavailGriffin Youssef MD Unavailable Roopa Almonte MD Unavailable [phone] MarciaBasilio win Unavailable Lydia Bernstein PA-C Unavailable Rosa Maria Love Unavailable [phone] Augustine Callaway MD Unavailable Paula Reza MD Unavailable Unavailable Keerthi Miner APRN AUTOMOBILE RADIATOR MECHANIC Unavailable Herman, Shahida Cummings APRN AUTOMOBILE RADIATOR MECHANIC Unavailable Un available Porsha Michaels APRN AUTOMOBILE RADIATOR MECHANIC Unavailable [phone] Paula Reza MD Unavailable Unavailable HermanShahida huerta APRN AUTOMOBILE RADIATOR MECHANIC Unavailable Un available Daylin Ludwig Unavailable [phone] Laurel Velasquez MD Unavailable [phone] Daylin Ludwig Unavailable [phone] Paula Reza MD Unavailable Unavailable Porsha Michaels APRN AUTOMOBILE RADIATOR MECHANIC Unavailable [phone] Laurel Velasquez MD Unavailable [phone] Shahida Sutton APRN AUTOMOBILE RADIATOR MECHANIC Unavailable Un available Marilin Montaño AUTOMOBILE RADIATOR MECHANIC Unavailable Esha Dewitt MD Unavailable [phone] Heather Mosquera MD Unavailable Paula Reza MD Unavailable Unavailable Esha Dewitt MD Unavailable [phone] Valdo Escamilla PA-C Unavailable [phone] Nohelia Abarca PA-C Unavailable [phone] Heather Mosquera MD Unavailable [phone] Fawad York MD Unavailable [phone] Reason for Visit * Reason Onset Date Comments MyChart Communication 12/31/2006 counseling ? Encounter Details Date Type Department Care Team (Late st Contact Info) Description 12/28/2006 [facility] [address] [address] Mingo Aldana MD [facility] [employer] [facility] [address] [place] [address] MyChart Communication (counseling ?) Social History Tobacco Use Types Packs/Day Years Used Date Smoking Tobacco: Every Day Cigarettes 0.5 25 Pipe Cigars Comments:social smoker Alcohol Use Standard Drinks/Week Comments Yes 0 (1 standard drink = 0.6 oz pur e alcohol) 2 drinks/ week Sex and Gender Information Value Date Recorded Sex Assigned at Male 09/20/2020 8:37 AM CDT Legal Sex Male 3:40 AM WOODWORKING BELT SANDER Gender Identity Male 09/20/2020 8:37 AM CDT Sexual Orientation Straight 09/20/2020 8: 37 AM CDT documented as of this encounter Miscellaneous Notes * Telephone Encounter - Paula Calderon - 12/31/2006 3:40 PM CDT Mychart message routed to referrals, please advise Paula Calderon RN * Telephone Encounter - Mingo Aldana - 12/28/2006 12:04 PM CDT Can we refer patient to [facility] psychologist [facility] in [place]. [phone] Mingo Aldana MD [facility] documented in this encounter Plan of Treatment Not on file documented as of this encounter Visit Diagnoses Not on filedocumented in this encounter Additional Health Concerns Infection Onset Date Last Indicated Resolved Time Rule Out COVID-19 02/15/2020 02/15/2020 02/16/2020 2:32 PM WOODWORKING BELT SANDER Rule Out COVID-19 01/05/2021 01/05/2021 01/06/2021 12:57 PM CDT ESBL 01/05/2021 01/05/2021 Rule Out COVID-19 06/30/2021 06/30/2021 07/01/2021 9:34 AM CDT Rule Out COVID-19 07/25/2021 07/25/2021 07/25/2021 8:02 PM CDT documented as of this encounter Care Teams Horseradish Grinder Relationship Specialty Start Date End Date Dixon Carson MD PCP - General 08/10/03 07/21/09 Mingo Aldana MD PCP - General Family Practice 07/22/09 07/12/14 Shahida Sutton APRN AUTOMOBILE RADIATOR MECHANIC PCP - General Nurse Practitioner 08/17/14 08/04/21 Shahida Sutton APRN AUTOMOBILE RADIATOR MECHANIC PCP - Assigned PCP 07/12/14 05/07/18 Paula Reza MD PCP - General Internal Medicine 08/05/21 Shahida Sutton APRN AUTOMOBILE RADIATOR MECHANIC Assigned PCP 07/12/14 09/30/21 Carolynn Ramon, KASIE Personal Advocate & Liaison (PAL) 12/17/18 08/07/21 [place] [address] [facility] [address] [place] [address] Assigned Musculoskeletal Provider 12/26/19 08/21/20 Brady Lion MD Assigned Heart and Vascular Provider 12/26/19 08/14/20 Nima France PA-C [address] [facility] [address] [place] [address] Assigned Surgical Provider 05/19/20 08/21/20 Camille Chandler PA-C [address] [facility] [address] [place] [address] Assigned Neuroscience Provider 05/19/20 09/14/20 Anabela Barakat APRN CNP [address] [place] [address] Assigned Heart and Vascular Provider 08/15/20 08/05/21 Nima France PA-C [address] [facility] [address] [place] [address] Assigned Musculoskeletal Provider 08/22/20 11/13/20 [place] [address] [facility] [place] [address] Assigned Musculoskeletal Provider 11/14/20 12/04/20 Fawad York MD [address] [place] [address] Assigned Musculoskeletal Provider 12/05/20 02/05/21 Roopa Almonte MD [address] [facility] [address] [place] [address] Endocrinology, Diabetes, and Metabolism 01/19/21 [place] [address] [facility] [address] [place] [address] Assigned Musculoskeletal Provider 02/06/21 09/16/21 Maryse Burton PA-C [address] [place] [address] Physician Clay Grinder Dermatology 04/14/21 Marquita Starkey MD [address] [facility] [address] [place] [address] Internal Medicine 05/06/21 05/06/21 Roopa Almonte MD [address] [facility] [address] [place] [address] Hospitalist Endocrinology, Diabetes, and Metabolism 05/30/21 Griffin Joshi MD [address] [facility] [address] [place] [address] Cardiovascular Disease 07/25/21 Rina Magallon, RN Lead Office Services Manager 07/29/21 07/11/22 Griffin Joshi MD [address] [facility] [address] [place] [address] Assigned Heart and Vascular Provider 08/06/21 10/07/21 Roopa Almonte MD [address] [place], [place] [address] Assigned Endocrinology Provider 09/10/21 02/24/24 [place] [address] [facility] [place] [address]33919 Assigned Musculoskeletal Provider 09/17/21 10/14/21 Lydia Bernstein PA-C [address] [place] [address] Assigned PCP 10/01/21 10/21/21 Rosa Maria Love CHW Community Health Worker 10/06/21 [place] [address] [place] [address] Assigned Musculoskeletal Provider 10/15/21 04/26/23 Paula Reza MD [place] IN [place] 02/02/2024 Assigned PCP 10/22/21 12/23/21 Keerthi Miner SLUMBER ROOM ATTENDANT AUTOMOBILE RADIATOR MECHANIC [address] [place] [address] Assigned Heart and Vascular Provider 10/08/21 02/10/22 Shahida Sutton, SLUMBER ROOM ATTENDANT AUTOMOBILE RADIATOR MECHANIC Assigned PCP 12/24/21 03/24/22 Porsha Michaels APRN AUTOMOBILE RADIATOR MECHANIC [address] [place] [address] Assigned Heart and Vascular Provider 02/11/22 05/12/22 Paula Reza MD [place] 02/02/2024 Assigned PCP 03/25/22 04/07/22 Shahida Sutton, SLUMBER ROOM ATTENDANT AUTOMOBILE RADIATOR MECHANIC [address] [place] [address] Assigned PCP 04/08/22 06/30/22 Daylin Ludwig, EP [facility] [address] [place] [address] Cardiac Rehabilitation Therapist 05/16/23 Laurel Velasquez MD [address] [place] [address] Assigned Heart and Vascular Provider 05/13/22 06/30/22 Daylin Ludwig, MIKI [facility] [address] [place] [address] Cardiac Rehabilitation Therapist 06/08/22 06/09/23 Paula Reza MD [place]CT[place] 02/02/2024 Assigned PCP 07/01/22 07/07/22 Porsha Michaels APRN AUTOMOBILE RADIATOR MECHANIC [address] [place] [address] Assigned Heart and Vascular Provider 07/01/22 07/07/22 Laurel Velasquez MD [address] [place] [address] Assigned Heart and Vascular Provider 07/08/22 08/04/22 Shahida Sutton, DUANE AUTOMOBILE RADIATOR MECHANIC Assigned PCP 07/08/22 09/08/22 Marilin Montaño, AUTOMOBILE RADIATOR MECHANIC [address] [place] [address] Assigned Heart and Vascular Provider 08/05/22 02/24/24 Esha Dewitt MD [address] [address] MD Gastroenterology 09/06/22 Heather Mosquera MD [address] [place] [address] Internal Medicine 09/06/22 Paula Reza MD [place]NACTIVE IN [place] 02/02/2024 Assigned PCP 09/09/22 01/05/23 Esha Dewitt MD [address] [address] Assigned Gastroenterology Provider 09/23/22 04/26/24 Valdo Escamilla PA-C [address] [place] [address] Assigned Neuroscience Provider 09/30/22 04/26/24 Nohelia Abarca PA-C [address] [place] [address] Physician Clay Grinder Gastroenterology 10/03/22 Heather Mosquera MD [address] [place], [place] [address] Assigned PCP 01/06/23 Fawad York MD [address] [place], [place] [address] Assigned Musculoskeletal Provider 04/27/23 06/25/23 documented as of this encounter
--- OUTSIDE RECORDS SUMMARY | 2024-11-02 15:12 | XMS_ITS | Encounter Summary ---
Author Organization [facility] Address [address] [place] [address] Care Team Providers Care Senior Project Architect Name Role Phone HermanShahida huerta APRN SPECIAL CLASS WELDER Primary Care Provi ford Unavailable Herman, Shahida Cummings APRN SPECIAL CLASS WELDER Unavailable Un available Herman, Shahida Cummings APRN SPECIAL CLASS WELDER Unavailable Un available Carolynn Ramon RN Unavailable [phone] Augustine Callaway MD Unavailable Brady Lion MD Unavailable Un available Nima France PA-C Unavailable [phone] Camille Chandler PA-C Unavailable [phone] Anabela Barakat APRN SPECIAL CLASS WELDER Unavailable Nima France PA-C Unavailable [phone] Basilio Morillo DO Unavailable Fawad York MD Unavailable [phone] Roopa Almonte MD Unavailable [phone] Augustine Callaway MD Unavailable Maryse Burton PA-C Unavailable [phone] Marquita Starkey MD Unavailable [phone] Roopa Almonte MD Unavailable [phone] Griffin Joshi MD Unavailable Rina Magallon RN Unavailable [phone] Paula Reza MD Primary Care Provider UnavailGriffin Youssef MD Unavailable Roopa Almonte MD Unavailable [phone] [facility] Hospital[facility] win Unavailable Lydia Bernstein-C Unavailable Rosa Maria Love Unavailable [phone] Augustine Callaway MD Unavailable Paula Reza MD Unavailable Unavailable Keerthi Miner APRN SPECIAL CLASS WELDER Unavailable [phone] Herman, Shahida Cummings APRN SPECIAL CLASS WELDER Unavailable Un available Porsha Michaels APRN SPECIAL CLASS WELDER Unavailable [phone] Paula Reza MD Unavailable Unavailable HermanShahida APRN SPECIAL CLASS WELDER Unavailable Un available Daylin Ludwig Unavailable [phone] Laurel Velasquez MD Unavailable [phone] Daylin Ludwig Unavailable [phone] Paula Rzea MD Unavailable Unavailable Porsha Michaels APRN SPECIAL CLASS WELDER Unavailable [phone] Laurel Velasquez MD Unavailable [phone] HermanShahida huerta APRN SPECIAL CLASS WELDER Unavailable Un available Marilin Montaño SPECIAL CLASS WELDER Unavailable [phone] Esha Dewitt MD Unavailable [phone] Heather Mosquera MD Unavailable [phone] Paula Reza MD Unavailable Unavailable Esha Dewitt MD Unavailable [phone] Valdo Escamilla PA-C Unavailable [phone] Nohelia Abarca PA-C Unavailable [phone] Heather Mosquera MD Unavailable [phone] Fawad York MD Unavailable [phone] Encounter Details Date Type Department Care Team (Late st Contact Info) Description 04/07/2015 [facility] [address] [address] Matilde Allen, FORGING ENGINEER Social History Tobacco Use Types Packs/Day Years Used Date Smoking Tobacco: Former Cigarettes Q uit: 12/09/2006 Cigars Smokeless Tobacco: Never Alcohol Use Standard Drinks/Week Comments Yes 0 (1 standard drink = 0.6 oz pur e alcohol) Very Occasionally Sex and Gender Information Value Date Recorded Sex Assigned at Male 09/20/2020 8:37 AM CDT Legal Sex Male 3:40 AM LINEN CHECKER Gender Identity Male 09/20/2020 8:37 AM CDT Sexual Orientation Straight 09/20/2020 8: 37 AM CDT 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 Not on file Not on jabier e documented as of this encounter Plan of Treatment Not on file documented as of this encounter Visit Diagnoses Not on filedocumented in this encounter Additional Health Concerns Infection Onset Date Last Indicated Resolved Time Rule Out COVID-19 02/15/2020 02/15/2020 02/16/2020 2:32 PM LINEN CHECKER Rule Out COVID-19 01/05/2021 01/05/2021 01/06/2021 12:57 PM CDT ESBL 01/05/2021 01/05/2021 Rule Out COVID-19 06/30/2021 06/30/2021 07/01/2021 9:34 AM CDT Rule Out COVID-19 07/25/2021 07/25/2021 07/25/2021 8:02 PM CDT Assessment Noted Time PHQ-9 Depression Total Score: 5 01/31/20 15 7:38 AM LINEN CHECKER documented as of this encounter Care Teams Senior Project Architect Relationship Specialty Start Date End Date hSahida Sutton APRN SPECIAL CLASS WELDER PCP - General Nurse Practitioner 08/17/14 08/04/21 Shahida Sutton APRN SPECIAL CLASS WELDER PCP - Assigned PCP 07/12/14 05/07/18 Paula Reza MD PCP - General Internal Medicine 08/05/21 Shahida Sutton APRN SPECIAL CLASS WELDER Assigned PCP 07/12/14 09/30/21 Carolynn Ramon, KASIE Personal Advocate & Liaison (PAL) 12/17/18 08/07/21 [place] [address] [place] [address] Assigned Musculoskeletal Provider 12/26/19 08/21/20 Brady Lion MD Assigned Heart and Vascular Provider 12/26/19 08/14/20 Nima France PA-C [address] [facility] [address] [place] [address] Assigned Surgical Provider 05/19/20 08/21/20 Camille Chandler PA-C [address] [facility] [address] [place] [address] Assigned Neuroscience Provider 05/19/20 09/14/20 Anabela Barakat APRN SPECIAL CLASS WELDER [address] [place] [address] Assigned Heart and Vascular Provider 08/15/20 08/05/21 Nima France PA-C [address] [place] [address] Assigned Musculoskeletal Provider 08/22/20 11/13/20 [place] [address] [facility] [place] [address] Assigned Musculoskeletal Provider 11/14/20 12/04/20 Fawad York MD [address] [place], [place] [address] Assigned Musculoskeletal Provider 12/05/20 02/05/21 Roopa Almonte MD [address] [facility] [address] [place], [place] [address] Endocrinology, Diabetes, and Metabolism 01/19/21 [place] [address] [facility] [address] [place] [address] Assigned Musculoskeletal Provider 02/06/21 09/16/21 Maryse Burton, PAAna MariaC [address] [place] [address] Physician Glost Tile Shader Dermatology 04/14/21 Marquita Starkey MD [address] [facility] [address] [place] [address] Internal Medicine 05/06/21 05/06/21 Roopa Almonte MD [address] [facility] [address] [place] [address] Hospitalist Endocrinology, Diabetes, and Metabolism 05/30/21 Griffin Joshi MD [address] [facility] [address] [place] [address] Cardiovascular Disease 07/25/21 Rina Magallon, RN Lead Training Personnel Supervisor 07/29/21 07/11/22 Griffin Joshi MD [address] [place] [address] Assigned Heart and Vascular Provider 08/06/21 10/07/21 Roopa Almonte MD [address] [facility] [address] [place], [place] [address] Assigned Endocrinology Provider 09/10/21 02/24/24 [place] [address] [facility] [place] MD [address] Assigned Musculoskeletal Provider 09/17/21 10/14/21 Lydia Bernstein PA-C [address] [place] [address] Assigned PCP 10/01/21 10/21/21 Rosa Maria Love Cristina Community Health Worker 10/06/21 07/11/22 [place] [address] [address] [facility] [address] [place] [address] Assigned Musculoskeletal Provider 10/15/21 04/26/23 Paula Reza MD INACTIVE IN [place] 02/02/2024 Assigned PCP 10/22/21 12/23/21 Keerthi Miner, CALCULUS TUTOR SPECIAL CLASS WELDER [address] [place] [address] Assigned Heart and Vascular Provider 10/08/21 02/10/22 Shahida Sutton APRN SPECIAL CLASS WELDER Assigned PCP 12/24/21 03/24/22 Porsha Michaels APRN SPECIAL CLASS WELDER [address] [place] [address] Assigned Heart and Vascular Provider 02/11/22 05/12/22 Puala Reza MD INACTIVE IN [place] 02/02/2024 Assigned PCP 03/25/22 04/07/22 Shahida Sutton APRN SPECIAL CLASS WELDER [address] [place] [address] Assigned PCP 04/08/22 06/30/22 Daylin Ludwig, EP [facility] [address] [place] [address] Cardiac Rehabilitation Therapist 05/16/23 Laurel Velasquez MD [address] [place] [address] Assigned Heart and Vascular Provider 05/13/22 06/30/22 Daylin Ludwig, EP [facility] [address] [place] [address] Cardiac Rehabilitation Therapist 06/08/22 06/09/23 Paula Reza MD INACTIVE IN [place] 02/02/2024 Assigned PCP 07/01/22 07/07/22 Porsha Michaels APRN SPECIAL CLASS WELDER [address] [place] [address] Assigned Heart and Vascular Provider 07/01/22 07/07/22 Laurel Velasquez MD [address] [place] [address] Assigned Heart and Vascular Provider 07/08/22 08/04/22 Shahida Sutton APRN SPECIAL CLASS WELDER Assigned PCP 07/08/22 09/08/22 Marilin Montaño, SPECIAL CLASS WELDER [address] [place] [address] Assigned Heart and Vascular Provider 08/05/22 02/24/24 Esha Dewitt MD 420 [facility] [address] [place] [address] Gastroenterology 09/06/22 Heather Mosquera MD [address] [place], [place] [address] Internal Medicine 09/06/22 Paula Reza MD INACTIVE IN [place] 02/02/2024 Assigned PCP 09/09/22 01/05/23 Esha Dewitt MD 420 [facility] 36 [place] [address] Assigned Gastroenterology Provider 09/23/22 04/26/24 Valdo Escamilla PA-C [address] [place] [address] Assigned Neuroscience Provider 09/30/22 04/26/24 Nohelia Abarca PA-C [address] [place] [address] Physician Glost Tile Shader Gastroenterology 10/03/22 Heather Mosquera MD [address] [place] [address] Assigned PCP 01/06/23 Fawad York MD [address] [place], [place] [address] Assigned Musculoskeletal Provider 04/27/23 06/25/23 documented as of this encounter
--- OUTSIDE RECORDS SUMMARY | 2024-11-02 15:12 | XMS_ITS | Encounter Summary ---
Author Organization [place] Address [address] [place] [address] Care Team Providers Care Bindery Cutter Operator Name Role Phone Shahida Sutton PILE DRIVER CARDIO CLINICIAN Primary Care Provi ford Unavailable Shahida Sutton APRN CARDIO CLINICIAN Unavailable Un available Carolynn Ramon RN Unavailable [phone] Anabela Barakat PILE DRIVER CARDIO CLINICIAN Unavailable Nima France PA-C Unavailable [phone] Basilio Morillo DO Unavailable [phone] Fawad York MD Unavailable Roopa Almonte MD Unavailable Augustine Callaway MD Unavailable Maryse Burton PA-C Unavailable Marquita Starkey MD Unavailable Roopa Almonte MD Unavailable Griffin Joshi MD Unavailable Rina Magallon RN Unavailable [phone] Paula Reza MD Primary Care Provider UnavailGriffin Youssef MD Unavailable Rooap Almonte MD Unavailable [phone] IliaBasilio Unavailable [phone] Lydia Bernstein-C Unavailable Kate Rosa Maria CHW Unavailable [phone] Augustine Callaway MD Unavailable Paula Reza MD Unavailable Unavailable Keerthi Miner APRN CARDIO CLINICIAN Unavailable [phone] Herman, Shahida Cummings PILE DRIVER CARDIO CLINICIAN Unavailable Un available Porsha Michaels APRN CARDIO CLINICIAN Unavailable +[phone] Paula Reza MD Unavailable Unavailable Herman, Shahida Cummings APRN CARDIO CLINICIAN Unavailable Un available Daylin Ludwig Unavailable [phone] Laurel Velasquez MD Unavailable + [phone] Daylin Ludwig EP Unavailable [phone] Paula Reza MD Unavailable Unavailable Porsha Michaels APRN CARDIO CLINICIAN Unavailable +[phone] Laurel Velasquez MD Unavailable [phone] Herman, Shahida Cummings APRN CARDIO CLINICIAN Unavailable Un available Marilin Montaño CARDIO CLINICIAN Unavailable [phone] Esha Dewitt MD Unavailable [phone] Heather Mosquera MD Unavailable [phone] Paula Reza MD Unavailable Unavailable Esha Dewitt MD Unavailable [phone] Valdo Escamilla-C Unavailable + [phone] Nohelia Abarca PA-C Unavailable [phone] Heather Mosquera MD Unavailable +[phone] Fawad York MD Unavailable [phone] Encounter Details Date Type Department Care Team (Late st Contact Info) Description 09/28/2020 MyC Medical Advice [address] [address] Carolynn Ramon RN Social History [...] AM CDT Legal Sex Male 3:40 AM LOAN SERVICE OFFICER Gender Identity Male 09/20/2020 8:37 AM CDT Sexual Orientation Straight 09/20/2020 8: 37 AM CDT 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 on file [...] as of this encounter Care Teams Bindery Cutter Operator Relationship Specialty Start Date End Date Shahida Sutton APRN CARDIO CLINICIAN PCP - General Nurse Practitioner 08/17/14 08/04/21 Paula Reza MD PCP - General Internal Medicine 08/05/21 Shahida Sutton APRN CARDIO CLINICIAN Assigned PCP 07/12/14 09/30/21 Carolynn Ramon, KASIE Personal Advocate & Liaison (PAL) 12/17/18 08/07/21 Anabela Barakat APRN CNP 1700 [place] [address] Assigned Heart and Vascular Provider 08/15/20 08/05/21 Nima France PA-C 6545 [facility] 450 [place] [address] Assigned Musculoskeletal Provider 08/22/20 11/13/20 [place] [address] [place], [place] [address] Assigned Musculoskeletal Provider 11/14/20 12/04/20 Fawad York MD 909 [place], [place] [address] Assigned Musculoskeletal Provider 12/05/20 02/05/21 Roopa Almonte MD [address] [facility] 200 [place] [address] Endocrinology, Diabetes, and Metabolism 01/19/21 [place] [address] [facility] 300 [place] [address] Assigned Musculoskeletal Provider 02/06/21 09/16/21 Maryse Burton PAAna MariaC 5200 [place] [address] Physician Onshore Diver Dermatology 04/14/21 Marquita Starkey MD [address] [facility] [address] 200 [place] [address] Internal Medicine 05/06/21 05/06/21 Roopa Almonte MD [address] [facility] [address] 200 [place] [address] Hospitalist Endocrinology, Diabetes, and Metabolism 05/30/21 Griffin Joshi MD [address] [place], [place] [address] Cardiovascular Disease 07/25/21 Rina Magallon, RN Lead Watch Parts Grinder 07/29/21 07/11/22 Griffin Joshi MD [address] [place] [address] Assigned Heart and Vascular Provider 08/06/21 10/07/21 Roopa Almonte MD [address] [place] [address] Assigned Endocrinology Provider 09/10/21 02/24/24 [place] [address] [facility] [place] [address] Assigned Musculoskeletal Provider 09/17/21 10/14/21 Lydia Bernstein PA-C [address] [place] [address] Assigned PCP 10/01/21 10/21/21 Rosa Maria Love CHW Community Health Worker 10/06/21 07/11/22 [place] [address] [place] [address] Assigned Musculoskeletal Provider 10/15/21 04/26/23 Paula Reza MD INACTIVE IN CT 02/02/2024 Assigned PCP 10/22/21 12/23/21 Keerthi Miner APRN CARDIO CLINICIAN [address] [place] [address] Assigned Heart and Vascular Provider 10/08/21 02/10/22 Shahida Sutton APRN CARDIO CLINICIAN Assigned PCP 12/24/21 03/24/22 Porsha Michaels APRN CARDIO CLINICIAN [address] [place] [address] Assigned Heart and Vascular Provider 02/11/22 05/12/22 Paula Reza MD INACTIVE IN CT 02/02/2024 Assigned PCP 03/25/22 04/07/22 Shahida Sutton APRN CARDIO CLINICIAN [address] [place] [address] Assigned PCP 04/08/22 06/30/22 Daylin Ludwig EP [facility] [address] [place] [address] Cardiac Rehabilitation Therapist 05/16/23 Laurel Velasquez MD [address] [place] [address] Assigned Heart and Vascular Provider 05/13/22 06/30/22 ParthdavidMigueDaylinMIKI Chandler [facility] [address] [place], [place] [address] Cardiac Rehabilitation Therapist 06/08/22 06/09/23 Paula Reza MD INACTIVE IN CT 02/02/2024 Assigned PCP 07/01/22 07/07/22 Porsha Michaels APRN CARDIO CLINICIAN [address] [place] [address] Assigned Heart and Vascular Provider 07/01/22 07/07/22 Laurel Velasquez MD [address] [place] [address] Assigned Heart and Vascular Provider 07/08/22 08/04/22 Shahida Sutton, DUANE CARDIO CLINICIAN Assigned PCP 07/08/22 09/08/22 Marilin Montaño, CARDIO CLINICIAN [address] [place] [address] Assigned Heart and Vascular Provider 08/05/22 02/24/24 Esha Dewitt MD [address] [place] [address] 36 [place], [place] [address] Gastroenterology 09/06/22 Heather Mosquera MD [address] [place] [address] Internal Medicine 09/06/22 Paula Reza MD INACTIVE IN CT 02/02/2024 Assigned PCP 09/09/22 01/05/23 Esha Dewitt MD 420 [facility] 36 [place] [address] Assigned Gastroenterology Provider 09/23/22 04/26/24 Valdo Escamilla PA-C [address] [place] [address] Assigned Neuroscience Provider 09/30/22 04/26/24 Nohelia Abarca PA-C [address] [place] [address] Physician Onshore Diver Gastroenterology 10/03/22 Heather Mosquera MD [address] [place] [address] Assigned PCP 01/06/23 Fawad York MD [address] [place], [place] [address] Assigned Musculoskeletal Provider 04/27/23 06/25/23 documented as of this encounter
--- OUTSIDE RECORDS SUMMARY | 2024-11-02 15:12 | XMS_ITS | Encounter Summary ---
Author Organization [place] Address [address] [place] [address] Care Team Providers Care Contracts Law Professor Name Role Phone Shahida Sutton OVEREDGE MACHINE OPERATOR PREMIUM AUDITOR Primary Care Provi ford Unavailable Shahida Sutton APRN PREMIUM AUDITOR Unavailable Un available Carolynn Ramon RN Unavailable [phone] Anabela Barakat OVEREDGE MACHINE OPERATOR PREMIUM AUDITOR Unavailable Basilio Morillo DO Unavailable [phone] Fawad York MD Unavailable [phone] Roopa Almonte MD Unavailable [phone] Augustine Callaway MD Unavailable Maryse Burton PA-C Unavailable [phone] Marquita Starkey MD Unavailable [phone] Roopa Almonte MD Unavailable [phone] Griffin Joshi MD Unavailable Rina Magallon RN Unavailable [phone] Paula Reza MD Primary Care Provider UnavailGriffin Youssef MD Unavailable Roopa Almonte MD Unavailable [phone] IliaBasilio DO Unavailable [phone] Lydia Bernstein PA-C Unavailable Kate Rosa Maria RACHELL Unavailable [phone] Augustine Callaway MD Unavailable Paula Reza MD Unavailable Unavailable Keerthi Miner APRN PREMIUM AUDITOR Unavailable [phone] Shahida Sutton OVEREDGE MACHINE OPERATOR PREMIUM AUDITOR Unavailable Un available Porsha Michaels APRN PREMIUM AUDITOR Unavailable [phone] Paula Reza MD Unavailable Unavailable Herman, Shahida Cummings APRN PREMIUM AUDITOR Unavailable Un available Daylin Ludwig Unavailable [phone] Laurel Velasquez MD Unavailable [phone] Daylin Ludwig Unavailable [phone] Paula Reza MD Unavailable Unavailable Porsha Michaels APRN PREMIUM AUDITOR Unavailable [phone] Laurel Velasquez MD Unavailable [phone] HermanShahida huerta APRN PREMIUM AUDITOR Unavailable Un available Marilin Montaño PREMIUM AUDITOR Unavailable [phone] Esha Dewitt MD Unavailable [phone] Heather Mosquera MD Unavailable [phone] Paula Reza MD Unavailable Unavailable Esha Dewitt MD Unavailable [phone] Valdo Escamilla-C Unavailable [phone] Nohelia AbarcaC Unavailable [phone] Heather Mosquera MD Unavailable [phone] Fawad York MD Unavailable [phone] Reason for Visit * Reason Comments Medication Refill Encounter Details Date Type Department Care Team (Late st Contact Info) Description 11/23/[address] [phone] Shahida Sutton APRN CNP Medication Refill Social [...] AM CDT Legal Sex Male 3:40 AM FINISH CARPENTER Gender Identity Male 09/20/2020 8:37 AM CDT Sexual Orientation Straight 09/20/2020 8: 37 AM CDT 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 Not on [...] documented as of this encounter Care Teams Contracts Law Professor Relationship Specialty Start Date End Date Shahida Sutton APRN CNP PCP - General Nurse Practitioner 08/17/14 08/04/21 Paula Reza MD PCP - General Internal Medicine 08/05/21 Shahida Sutton APRN CNP Assigned PCP 07/12/14 09/30/21 Carolynn Ramon, KASIE Personal Advocate & Liaison (PAL) 12/17/18 08/07/21 Anabela Barakat APRN PREMIUM AUDITOR 1700 [place] [address] Assigned Heart and Vascular Provider 08/15/20 08/05/21 [place] [address] [facility] [place], [place] [address] Assigned Musculoskeletal Provider 11/14/20 12/04/20 Fawad York MD 909 [place], [place] [address] Assigned Musculoskeletal Provider 12/05/20 02/05/21 Roopa Almonte MD [address] [facility] 200 [place], [place] [address] Endocrinology, Diabetes, and Metabolism 01/19/21 [place] [address] [facility] 300 [place] [address] Assigned Musculoskeletal Provider 02/06/21 09/16/21 Maryse Burton PAAna MariaC 5200 [place] [address] Physician Sealant Mixer Dermatology 04/14/21 Marquita Starkey MD [address] [facility] 200 [place], [place] [address] Internal Medicine 05/06/21 05/06/21 Roopa Almonte MD [address] [facility] 200 [place] [address] Hospitalist Endocrinology, Diabetes, and Metabolism 05/30/21 Griffin Joshi MD [address] [place] [address] Cardiovascular Disease 07/25/21 Rina Magallon, RN Lead Dry Wall Nailer 07/29/21 07/11/22 Griffin Joshi MD [address] [facility] [address] [place] [address] Assigned Heart and Vascular Provider 08/06/21 10/07/21 Roopa Almonte MD [address] [facility] 200 [place], [place] [address] Assigned Endocrinology Provider 09/10/21 02/24/24 [place] [address] [facility] [place] [address] Assigned Musculoskeletal Provider 09/17/21 10/14/21 Lydia Bernstein PA-C [address] [place] [address] Assigned PCP 10/01/21 10/21/21 Rosa Maria Love CHW Community Health Worker 10/06/21 07/11/22 [place] [address] [facility] 300 [place] [address] Assigned Musculoskeletal Provider 10/15/21 04/26/23 Paula Reza MD INACTIVE IN [place] 02/02/2024 Assigned PCP 10/22/21 12/23/21 Keerthi Miner OVEREDGE MACHINE OPERATOR PREMIUM AUDITOR [address] [place] [address] Assigned Heart and Vascular Provider 10/08/21 02/10/22 Shahida Sutton APRN PREMIUM AUDITOR Assigned PCP 12/24/21 03/24/22 Porsha Michaels APRN PREMIUM AUDITOR [address] [place] [address] Assigned Heart and Vascular Provider 02/11/22 05/12/22 Paula Reza MD INACTIVE IN [place] 02/02/2024 Assigned PCP 03/25/22 04/07/22 Shahida Sutton APRN PREMIUM AUDITOR [address] [place] [address] Assigned PCP 04/08/22 06/30/22 Daylin Ludwig, [facility] [address] [place] [address] Cardiac Rehabilitation Therapist 05/16/23 Laurel Velasquez MD [address] [place] [address] Assigned Heart and Vascular Provider 05/13/22 06/30/22 Daylin Ludwig, EP [facility] [address] [place] [address] Cardiac Rehabilitation Therapist 06/08/22 06/09/23 Paula Reza MD INACTIVE IN [place] 02/02/2024 Assigned PCP 07/01/22 07/07/22 Porsha Michaels APRN PREMIUM AUDITOR [address] [place] [address] Assigned Heart and Vascular Provider 07/01/22 07/07/22 Laurel Velasquez MD [address] [place] [address] Assigned Heart and Vascular Provider 07/08/22 08/04/22 Shahida Sutton APRN PREMIUM AUDITOR Assigned PCP 07/08/22 09/08/22 Marilin Montaño, PREMIUM AUDITOR [address] [place] [address] Assigned Heart and Vascular Provider 08/05/22 02/24/24 Esha Dewitt MD [address] [address] Gastroenterology 09/06/22 Heather Mosquera MD [address] [place], [place] [address] Internal Medicine 09/06/22 Paula Reza MD INACTIVE IN [place] 02/02/2024 Assigned PCP 09/09/22 01/05/23 Esha Dewitt MD [address] 190455 Assigned Gastroenterology Provider 09/23/22 04/26/24 Valdo Escamilla PA-C [address] [place] [address] Assigned Neuroscience Provider 09/30/22 04/26/24 Nohelia Abarca PA-C [address] [place] [address] Physician Sealant Mixer Gastroenterology 10/03/22 Heather Mosquera MD [address] [place] [address] Assigned PCP 01/06/23 Fawad York MD [address] [place] [address] Assigned Musculoskeletal Provider 04/27/23 06/25/23 documented as of this encounter
--- OUTSIDE RECORDS SUMMARY | 2024-11-02 15:12 | XMS_ITS | Encounter Summary ---
Author Organization [place] Address [address] [place] [address] Care Team Providers Care Pan Reclaim Processor Name Role Phone HermanShahida huerta APRN ENVELOPE SEALING MACHINE OPERATOR Primary Care Provi ford Unavailable Herman, Shahida Cummings APRN ENVELOPE SEALING MACHINE OPERATOR Unavailable Un available Herman, Shahida Cummings APRN ENVELOPE SEALING MACHINE OPERATOR Unavailable Un available Carolynn Ramon RN Unavailable [phone] Augustine Callaway MD Unavailable Brady Lion MD Unavailable Un available Nima France PA-C Unavailable [phone] Camille Chandler PA-C Unavailable [phone] Anabela Barakat APRN ENVELOPE SEALING MACHINE OPERATOR Unavailable Nima France PA-C Unavailable [phone] Basilio Morillo DO Unavailable Fawad York MD Unavailable [phone] Roopa Almonte MD Unavailable [phone] Augustine Callaway MD Unavailable Maryse Burton PA-C Unavailable [phone] Marquita Starkey MD Unavailable [phone] Roopa Almonte MD Unavailable [phone] Griffin Joshi MD Unavailable Rina Magallon RN Unavailable [phone] Paula Reza MD Primary Care Provider UnavailGriffin Youssef MD Unavailable Roopa Almonte MD Unavailable [phone] [employer] [facility] Boys[facility] win Unavailable Lydia Bernstein-C Unavailable Rosa Maria Love Unavailable [phone] Augustine Callaway MD Unavailable Paula Reza MD Unavailable Unavailable Keerthi Miner APRN ENVELOPE SEALING MACHINE OPERATOR Unavailable [phone] Herman, Shahida Cummings APRN ENVELOPE SEALING MACHINE OPERATOR Unavailable Un available Porsha Michaels APRN ENVELOPE SEALING MACHINE OPERATOR Unavailable [phone] Paula Reza MD Unavailable Unavailable HermanShahida APRN ENVELOPE SEALING MACHINE OPERATOR Unavailable Un available Daylin Ludwig Unavailable [phone] Laurel Velasquez MD Unavailable [phone] Daylin Ludwig Unavailable [phone] Paula Reza MD Unavailable Unavailable Porsha Michaels APRN ENVELOPE SEALING MACHINE OPERATOR Unavailable [phone] Laurel Velasquez MD Unavailable [phone] HermanShahida huerta APRN ENVELOPE SEALING MACHINE OPERATOR Unavailable Un available Marilin Montaño ENVELOPE SEALING MACHINE OPERATOR Unavailable [phone] Esha Dewitt MD Unavailable [phone] Heather Mosquera MD Unavailable [phone] Paula Reza MD Unavailable Unavailable Esha Dewitt MD Unavailable [phone] Valdo Escamilla PA-C Unavailable [phone] Nohelia Abarca PA-C Unavailable [phone] Heather Mosquera MD Unavailable [phone] Fawad York MD Unavailable [phone] Encounter Details Date Type Department Care Team (Late st Contact Info) Description 09/23/2015 MyC Medical Advice [address] [address] Matilde Allen, READING EFFICIENCY COURSE DIRECTOR Social History Tobacco Use Types Packs/Day Years Used Date Smoking Tobacco: Former Cigarettes Q uit: 12/09/2006 Cigars Smokeless Tobacco: Never Alcohol Use Standard Drinks/Week Comments Yes 0 (1 standard drink = 0.6 oz pur e alcohol) Very Occasionally Sex and Gender Information Value Date Recorded Sex Assigned at Male 09/20/2020 8:37 AM CDT Legal Sex Male 3:40 AM PRINTED CIRCUIT BOARDS PLASMA ETCHER Gender Identity Male 09/20/2020 8:37 AM CDT Sexual Orientation Straight 09/20/2020 8: 37 AM CDT 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 on file Not on file Not on jabier e documented as of this encounter Plan of Treatment Not on file documented as of this encounter Visit Diagnoses Not on filedocumented in this encounter Additional Health Concerns Infection Onset Date Last Indicated Resolved Time Rule Out COVID-19 02/15/2020 02/15/2020 02/16/2020 2:32 PM PRINTED CIRCUIT BOARDS PLASMA ETCHER Rule Out COVID-19 01/05/2021 01/05/2021 01/06/2021 12:57 PM CDT ESBL 01/05/2021 01/05/2021 Rule Out COVID-19 06/30/2021 06/30/2021 07/01/2021 9:34 AM CDT Rule Out COVID-19 07/25/2021 07/25/2021 07/25/2021 8:02 PM CDT Assessment Noted Time PHQ-9 Depression Total Score: 8 10/01/19 16 7:13 AM CDT documented as of this encounter Care Teams Pan Reclaim Processor Relationship Specialty Start Date End Date Shahida Sutton APRN ENVELOPE SEALING MACHINE OPERATOR PCP - General Nurse Practitioner 08/17/14 08/04/21 Shahida Sutton APRN ENVELOPE SEALING MACHINE OPERATOR PCP - Assigned PCP 07/12/14 05/07/18 Paula Reza MD PCP - General Internal Medicine 08/05/21 Shahida Sutton APRN ENVELOPE SEALING MACHINE OPERATOR Assigned PCP 07/12/14 09/30/21 Carolynn Ramon, KASIE Personal Advocate & Liaison (PAL) 12/17/18 08/07/21 [place] [address] [place] [address] Assigned Musculoskeletal Provider 12/26/19 08/21/20 Brady Lion MD Assigned Heart and Vascular Provider 12/26/19 08/14/20 Nima France PA-C [address] [facility] [address] [place] [address] Assigned Surgical Provider 05/19/20 08/21/20 Camille Chandler PA-C 6545 [facility] [address] [place] [address] Assigned Neuroscience Provider 05/19/20 09/14/20 Anabela Barakat APRN ENVELOPE SEALING MACHINE OPERATOR 1700 [place] [address] Assigned Heart and Vascular Provider 08/15/20 08/05/21 Nima France PA-C [address] [facility] [address] [place] [address] Assigned Musculoskeletal Provider 08/22/20 11/13/20 [place] [address] [facility] [place] [address] Assigned Musculoskeletal Provider 11/14/20 12/04/20 Fawad York MD 909 [place] [address] Assigned Musculoskeletal Provider 12/05/20 02/05/21 Roopa Almonte MD [address] [facility] 200 [place] [address] Endocrinology, Diabetes, and Metabolism 01/19/21 [place] [address] [facility] [address] [place] [address] Assigned Musculoskeletal Provider 02/06/21 09/16/21 Maryse Burton PAAna MariaC [address] [place] [address] Physician Toppiece Chopper Dermatology 04/14/21 Marquita Starkey MD [address] [facility] 200 [place] [address] Internal Medicine 05/06/21 05/06/21 Roopa Almonte MD [address] [facility] 200 [place] [address] Hospitalist Endocrinology, Diabetes, and Metabolism 05/30/21 Griffin Joshi MD 6405 [facility] [address] [place] [address] Cardiovascular Disease 07/25/21 Rina Magallon, RN Lead Bath Design Sales Consultant 07/29/21 07/11/22 Griffin Joshi MD [address] [place] [address] Assigned Heart and Vascular Provider 08/06/21 10/07/21 Roopa Almonte MD [address] [facility] 200 [place], [place] [address] Assigned Endocrinology Provider 09/10/21 02/24/24 [place] [address] [facility] [address] [address] Assigned Musculoskeletal Provider 09/17/21 10/14/21 Lydia Bernstein PA-C [address] [place] [address] Assigned PCP 10/01/21 10/21/21 Rosa Maria Love [facility] Community Health Worker 10/06/21 07/11/22 [place] [address] [facility] [address] [place] [address] Assigned Musculoskeletal Provider 10/15/21 04/26/23 Paula Reza MD INACTIVE IN CT 02/02/2024 Assigned PCP 10/22/21 12/23/21 Keerthi Miner, PEARL FISHERMAN ENVELOPE SEALING MACHINE OPERATOR [address] [place] [address] Assigned Heart and Vascular Provider 10/08/21 02/10/22 Shahida Stuton APRN ENVELOPE SEALING MACHINE OPERATOR Assigned PCP 12/24/21 03/24/22 Porsha Michaels APRN ENVELOPE SEALING MACHINE OPERATOR [address] [place] [address] Assigned Heart and Vascular Provider 02/11/22 05/12/22 Paula Reza MD INACTIVE IN CT 02/02/2024 Assigned PCP 03/25/22 04/07/22 Shahida Sutton APRN ENVELOPE SEALING MACHINE OPERATOR [address] [place] [address] Assigned PCP 04/08/22 06/30/22 Daylin Ludwig, [facility] [address] [place] [address] Cardiac Rehabilitation Therapist 05/16/23 Laurel Velasquez MD [address] [place] [address] Assigned Heart and Vascular Provider 05/13/22 06/30/22 Daylin Ludwig, EP [facility] [address] [place] [address] Cardiac Rehabilitation Therapist 06/08/22 06/09/23 Paula Reza MD INACTIVE IN CT 02/02/2024 Assigned PCP 07/01/22 07/07/22 Porsha Michaels APRN ENVELOPE SEALING MACHINE OPERATOR [address] [place] [address] Assigned Heart and Vascular Provider 07/01/22 07/07/22 Laurel Velasquez MD [address] [place] [address] Assigned Heart and Vascular Provider 07/08/22 08/04/22 Shahida Sutton, DUANE ENVELOPE SEALING MACHINE OPERATOR Assigned PCP 07/08/22 09/08/22 Marilin Montaño, ENVELOPE SEALING MACHINE OPERATOR [address] [place] [address] Assigned Heart and Vascular Provider 08/05/22 02/24/24 Esha Dewitt MD 420 [facility] 36 [place] [address] Gastroenterology 09/06/22 Heather Mosquera MD [address] [place] [address] Internal Medicine 09/06/22 Paula Reza MD INACTIVE IN CT 02/02/2024 Assigned PCP 09/09/22 01/05/23 Esha Dewitt MD 420 [facility] 36 [place] [address] Assigned Gastroenterology Provider 09/23/22 04/26/24 Valdo Escamilla PA-C [address] [place] [address] Assigned Neuroscience Provider 09/30/22 04/26/24 Nohelia Abarca PA-C [address] [place] [address] Physician Toppiece Chopper Gastroenterology 10/03/22 Heather Mosquera MD [address] [place] [address] Assigned PCP 01/06/23 Fawad York MD [address] [place], [place] [address] Assigned Musculoskeletal Provider 04/27/23 06/25/23 documented as of this encounter
--- OUTSIDE RECORDS SUMMARY | 2024-11-02 15:13 | XMS_ITS | Encounter Summary ---
Author Organization [facility] Address [address] [place] [address] Care Team Providers Care Wet 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 Name Role Phone Dixon Carson MD Primary Care Provider Unavailable Mingo Aldana MD Primary Car e Provider HermanShahida APRN MACHINE PRECISION ETCHER Primary Care Provi ford Unavailable Herman, Shahida Cummings APRN MACHINE PRECISION ETCHER Unavailable Un available Herman, Shahida Cummings APRN MACHINE PRECISION ETCHER Unavailable Un available Carolynn Ramon RN Unavailable [phone] Augustine Callaway MD Unavailable Brady Lion MD Unavailable Un available Nima FranceC Unavailable [phone] Camille Chandler PA-C Unavailable [phone] Anabela Barakat APRN MACHINE PRECISION ETCHER Unavailable Nima FranceC Unavailable [phone] Basilio Morillo DO Unavailable [phone] Fawad York MD Unavailable [phone] Roopa Almonte MD Unavailable [phone] Augustine Callaway MD Unavailable Maryse Burton PA-C Unavailable Marquita Starkey MD Unavailable [phone] Roopa Almonte MD Unavailable [phone] Griffin Joshi MD Unavailable Rina Magallon RN Unavailable [phone] Paula Reza MD Primary Care Provider UnavailGriffin Youssef MD Unavailable Roopa Almonte MD Unavailable [phone] MarciaBasilio win Unavailable Lydia Bernstein PA-C Unavailable Rosa Maria Love Unavailable [phone] Augustine Callaway MD Unavailable Paula Reza MD Unavailable Unavailable Keerthi Miner APRN MACHINE PRECISION ETCHER Unavailable Herman, Shahida Cummings APRN MACHINE PRECISION ETCHER Unavailable Un available Porsha Michaels APRN MACHINE PRECISION ETCHER Unavailable [phone] Paula Reza MD Unavailable Unavailable HermanShahida huerta APRN MACHINE PRECISION ETCHER Unavailable Un available Daylin Ludwig Unavailable [phone] Laurel Velasquez MD Unavailable [phone] Daylin Ludwig Unavailable [phone] Paula Reza MD Unavailable Unavailable Porsha Michaels APRN MACHINE PRECISION ETCHER Unavailable [phone] Laurel Velasquez MD Unavailable [phone] Shahida Sutton APRN MACHINE PRECISION ETCHER Unavailable Un available Marilin Montaño MACHINE PRECISION ETCHER Unavailable Esha Dewitt MD Unavailable [phone] Heather Mosquera MD Unavailable [phone] Paula Reza MD Unavailable Unavailable Esha Dewitt MD Unavailable [phone] Andi Valdo Desouza PA-C Unavailable [phone] Nohelia Abarca PA-C Unavailable [phone] Heather Mosquera MD Unavailable [phone] Fawad York MD Unavailable [phone] Reason for Visit * Reason Onset Date Comments Refill Request 02/14/2008 diazepam Encounter Details Date Type Department Care Team (Late st Contact Info) Description 02/14/2008 MyC Refill [address] [address] Dixon Carson MD XXX HOSPITALIST/ED DOCTOR XXX Refill Request (diazepam) Social History Tobacco Use [...] AM CDT Legal Sex Male 3:40 AM ATTENDANT CHILD ACTIVITY Gender Identity Male 09/20/2020 8:37 AM CDT Sexual Orientation Straight 09/20/2020 8: 37 AM CDT documented as of this encounter Miscellaneous Notes * Telephone Encounter - Bijal Noel - 02/14/2008 12:59 PM CST See below NDANT CHILD ACTIVITY * Telephone Encounter - Ratna Lambert - 02/14/2008 12:39 PM CST Date of last OV: 12/30/07 Reason for visit: lumbago Date last filled: per epic 12/30/07 #24 Labs pertaining to med: none ,Unable to approve per standing orders, routed to provider. Ratna Lambert RN NDANT CHILD ACTIVITY * Telephone Encounter - Ratna Lambert - 02/14/2008 12:38 PM CSTMessage from MyChart: Original authorizing provider: Dixon Terrell would like a refill of the following medications: DIAZEPAM 5 MG OR TABS [Dixon Carson MD] Preferred pharmacy: [facility] Comment: occasional back flare-ups, less than before, but still periodically somewhat dibilitating NDANT CHILD ACTIVITY documented in this encounter Plan of Treatment Not on file documented as of this encounter Visit Diagnoses Diagnosis Lumbago documented in this encounter Additional Health Concerns Infection Onset Date Last Indicated Resolved Time Rule Out COVID-19 02/15/2020 02/15/2020 02/16/2020 2:32 PM ATTENDANT CHILD ACTIVITY Rule Out COVID-19 01/05/2021 01/05/2021 01/06/2021 12:57 PM CDT ESBL 01/05/2021 01/05/2021 Rule Out COVID-19 06/30/2021 06/30/2021 07/01/2021 9:34 AM CDT Rule Out COVID-19 07/25/2021 07/25/2021 07/25/2021 8:02 PM CDT documented as of this encounter Care Teams Wet 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 Relationship Specialty Start Date End Date Dixon Carson MD PCP - General 08/10/03 07/21/09 Mingo Aldana MD PCP - General Family Practice 07/22/09 07/12/14 Shahida Sutton APRN MACHINE PRECISION ETCHER PCP - General Nurse Practitioner 08/17/14 08/04/21 Shahida Sutton APRN MACHINE PRECISION ETCHER PCP - Assigned PCP 07/12/14 05/07/18 Paula Reza MD PCP - General Internal Medicine 08/05/21 Shahida Sutton APRN MACHINE PRECISION ETCHER Assigned PCP 07/12/14 09/30/21 Carolynn Ramon, KASIE Personal Advocate & Liaison (PAL) 12/17/18 08/07/21 [place] [address] [place] [address] Assigned Musculoskeletal Provider 12/26/19 08/21/20 Brady Lion MD Assigned Heart and Vascular Provider 12/26/19 08/14/20 Nima France PA-C [address] [place] [address] Assigned Surgical Provider 05/19/20 08/21/20 Camille Chandler PA-C [address] [facility] [address] [place] [address] Assigned Neuroscience Provider 05/19/20 09/14/20 Anabela Barakat APRN CNP [address] [place] [address] Assigned Heart and Vascular Provider 08/15/20 08/05/21 Nima France PA-C [address] [facility] [address] [place], [place] [address] Assigned Musculoskeletal Provider 08/22/20 11/13/20 [place] [address] [facility] [place] [address] Assigned Musculoskeletal Provider 11/14/20 12/04/20 Fawad York MD [address] [place] [address] Assigned Musculoskeletal Provider 12/05/20 02/05/21 Roopa Almonte MD [address] [facility] [address] [place] [address] Endocrinology, Diabetes, and Metabolism 01/19/21 [place] [address] [facility] [address] [place] [address] Assigned Musculoskeletal Provider 02/06/21 09/16/21 Maryse Burton PA-C [address] [place] [address] Physician Payroll Supervisor Dermatology 04/14/21 Marquita Starkey MD [address] [facility] [address] [place] [address] Internal Medicine 05/06/21 05/06/21 Roopa Almonte MD [address] [facility] [address] [place] [address] Hospitalist Endocrinology, Diabetes, and Metabolism 05/30/21 Griffin Joshi MD [address] [place] [address] Cardiovascular Disease 07/25/21 Rina Magallon, RN Lead Compensation Adjuster 07/29/21 07/11/22 Griffin Joshi MD [address] [place] [address] Assigned Heart and Vascular Provider 08/06/21 10/07/21 Roopa Almonte MD [address] [place] [address] 200 [place] [address] Assigned Endocrinology Provider 09/10/21 02/24/24 [place] [address] [facility] [place] [address] Assigned Musculoskeletal Provider 09/17/21 10/14/21 Lydia Bernstein PA-C [address] [place] [address] Assigned PCP 10/01/21 10/21/21 Rosa Maria Love [facility] Community Health Worker 10/06/21 [place] [address] [facility] [address] [place] [address] Assigned Musculoskeletal Provider 10/15/21 04/26/23 Paula Reza MD [place]NACTIVE IN [place] 02/02/2024 Assigned PCP 10/22/21 12/23/21 Keerthi Miner APRN MACHINE PRECISION ETCHER [address] [place] [address] Assigned Heart and Vascular Provider 10/08/21 02/10/22 Shahida Sutton APRN MACHINE PRECISION ETCHER Assigned PCP 12/24/21 03/24/22 Porsha Michaels APRN MACHINE PRECISION ETCHER [address] [place] [address] Assigned Heart and Vascular Provider 02/11/22 05/12/22 Paula Reza MD [place] 02/02/2024 Assigned PCP 03/25/22 04/07/22 Shahida Sutton APRN MACHINE PRECISION ETCHER [address] [place] [address] Assigned PCP 04/08/22 06/30/22 Daylin Ludwig, EP [facility] [address] [place] [address] Cardiac Rehabilitation Therapist 05/16/23 Laurel Velasquez MD [address] [place] [address] Assigned Heart and Vascular Provider 05/13/22 06/30/22 Daylin Ludwig, MIKI [facility] [address] [place] [address] Cardiac Rehabilitation Therapist 06/08/22 06/09/23 Paula Reza MD [place] 02/02/2024 Assigned PCP 07/01/22 07/07/22 Porsha Michaels APRN MACHINE PRECISION ETCHER [address] [place] [address] Assigned Heart and Vascular Provider 07/01/22 07/07/22 Laurel Velasquez MD [address] [place] [address] Assigned Heart and Vascular Provider 07/08/22 08/04/22 Shahida Sutton, DUANE MACHINE PRECISION ETCHER Assigned PCP 07/08/22 09/08/22 Marilin Montaño, MACHINE PRECISION ETCHER [address] [place] [address] Assigned Heart and Vascular Provider 08/05/22 02/24/24 Esha Dewitt MD [address] [place] [address] Gastroenterology 09/06/22 Heather Mosquera MD [address] [place] [address] Internal Medicine 09/06/22 Paula Reza MD [place] 02/02/2024 Assigned PCP 09/09/22 01/05/23 Esha Dewitt MD [address] [place] [address] Assigned Gastroenterology Provider 09/23/22 04/26/24 Valdo Escamilla PA-C [address] [place] [address] Assigned Neuroscience Provider 09/30/22 04/26/24 Nohelia Abarca PA-C [address] [place] [address] Physician Payroll Supervisor Gastroenterology 10/03/22 Heather Mosquera MD [address] [place] [address] Assigned PCP 01/06/23 Fawad York MD [address] [place] [address] Assigned Musculoskeletal Provider 04/27/23 06/25/23 documented as of this encounter
--- OUTSIDE RECORDS SUMMARY | 2024-11-02 15:13 | XMS_ITS | Encounter Summary ---
Author Organization [facility] Address [address] [place] [address] Care Team Providers Care Checkman Name Role Phone HermanShahida huerta APRN ESL PROFESSOR Primary Care Provi ford Unavailable Herman, Shahida Cummings APRN ESL PROFESSOR Unavailable Un available Herman, Shahida Cummings APRN ESL PROFESSOR Unavailable Un available Carolynn Ramon RN Unavailable [phone] Augustine Callaway MD Unavailable Brady Lion MD Unavailable Un available Nima France PA-C Unavailable [phone] Camille Chandler PA-C Unavailable [phone] Anabela Barakat APRN ESL PROFESSOR Unavailable Nima Franec PA-C Unavailable [phone] Basilio Morillo DO Unavailable [phone] Fawad York MD Unavailable [phone] Roopa Almonte MD Unavailable [phone] Augustine Callaway MD Unavailable Maryse Burton PA-C Unavailable [phone] Marquita Starkey MD Unavailable [phone] Roopa Almonte MD Unavailable [phone] Griffin Joshi MD Unavailable Rina Magallon RN Unavailable [phone] Paula Reza MD Primary Care Provider UnavailGriffin Youssef MD Unavailable Roopa Almonte MD Unavailable [phone] [facility] Unavailable Lydia Bernstein-C Unavailable Rosa Maria Love Unavailable [phone] Augustine Callaway MD Unavailable Paula Reza MD Unavailable Unavailable Keerthi Miner APRN ESL PROFESSOR Unavailable [phone] Herman, Shahida Cummings APRN ESL PROFESSOR Unavailable Un available Porsha Michaels APRN ESL PROFESSOR Unavailable [phone] Paula Reza MD Unavailable Unavailable HermanShahida APRN ESL PROFESSOR Unavailable Un available Daylin Ludwig Unavailable [phone] Laurel Velasquez MD Unavailable [phone] Daylin Ludwig Unavailable [phone] Paula Reza MD Unavailable Unavailable Porsha Michaels APRN ESL PROFESSOR Unavailable [phone] Laurel Velasquez MD Unavailable [phone] HermanShahida huerta APRN ESL PROFESSOR Unavailable Un available Marilin Montaño ESL PROFESSOR Unavailable [phone] Esha Dewitt MD Unavailable [phone] Heather Mosquera MD Unavailable [phone] Paula Reza MD Unavailable Unavailable Esha Dewitt MD Unavailable [phone] Valdo Escamilla PA-C Unavailable [phone] Nohelia Abarca PA-C Unavailable [phone] Heather Mosquera MD Unavailable [phone] Fawad York MD Unavailable Encounter Details Date Type Department Care Team (Late st Contact Info) Description 12/28/2015 MyC Medical Advice [address] [address] Matilde Allen, FORMULATOR COMPOUNDER Social History Tobacco Use Types Packs/Day Years Used Date Smoking Tobacco: Former Cigarettes Q uit: 12/09/2006 Cigars Smokeless Tobacco: Never Alcohol Use Standard Drinks/Week Comments Yes 0 (1 standard drink = 0.6 oz pur e alcohol) Very Occasionally Sex and Gender Information Value Date Recorded Sex Assigned at Male 09/20/2020 8:37 AM CDT Legal Sex Male 3:40 AM FIBER DESIGNER Gender Identity Male 09/20/2020 8:37 AM CDT Sexual Orientation Straight 09/20/2020 8: 37 AM CDT 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 Not on file Not on file Not on jabier e documented as of this encounter Plan of Treatment Not on file documented as of this encounter Visit Diagnoses Not on filedocumented in this encounter Additional Health Concerns Infection Onset Date Last Indicated Resolved Time Rule Out COVID-19 02/15/2020 02/15/2020 02/16/2020 2:32 PM FIBER DESIGNER Rule Out COVID-19 01/05/2021 01/05/2021 01/06/2021 12:57 PM CDT ESBL 01/05/2021 01/05/2021 Rule Out COVID-19 06/30/2021 06/30/2021 07/01/2021 9:34 AM CDT Rule Out COVID-19 07/25/2021 07/25/2021 07/25/2021 8:02 PM CDT Assessment Noted Time PHQ-9 Depression Total Score: 7 11/16/ 16 7:18 AM CDT documented as of this encounter Care Teams Checkman Relationship Specialty Start Date End Date Shahida Sutton APRN ESL PROFESSOR PCP - General Nurse Practitioner 08/17/14 08/04/21 Shahida Sutton APRN ESL PROFESSOR PCP - Assigned PCP 07/12/14 05/07/18 Paula Reza MD PCP - General Internal Medicine 08/05/21 Shahida Sutton APRN ESL PROFESSOR Assigned PCP 07/12/14 09/30/21 Carolynn Ramon, KASIE Personal Advocate & Liaison (PAL) 12/17/18 08/07/21 [place] [address] [place] [address] Assigned Musculoskeletal Provider 12/26/19 08/21/20 Brady Lion MD Assigned Heart and Vascular Provider 12/26/19 08/14/20 Nima France PA-C [address] [facility] [address] [place] [address] Assigned Surgical Provider 05/19/20 08/21/20 Camille Chandler PA-C [address] [facility] [address] [place] [address] Assigned Neuroscience Provider 05/19/20 09/14/20 Anabela Barakat APRN ESL PROFESSOR [address] [place] [address] Assigned Heart and Vascular Provider 08/15/20 08/05/21 Nima France PA-C [address] [facility] [address] [place] [address] Assigned Musculoskeletal Provider 08/22/20 11/13/20 [place] [address] [facility] [place] [address] Assigned Musculoskeletal Provider 11/14/20 12/04/20 Fawad York MD [address] [place] [address] Assigned Musculoskeletal Provider 12/05/20 02/05/21 Roopa Almonte MD [address] [facility] [address] [place] [address] Endocrinology, Diabetes, and Metabolism 01/19/21 [place] [address] [facility] [address] [place] [address] Assigned Musculoskeletal Provider 02/06/21 09/16/21 Maryse Burton PAAna MariaC [address] [place] [address] Physician Inspector Balance Wheel Motion Dermatology 04/14/21 Marquita Starkey MD [address] [facility] [address] [place] [address] Internal Medicine 05/06/21 05/06/21 Roopa Almonte MD [address] [facility] [address] [place] [address] Hospitalist Endocrinology, Diabetes, and Metabolism 05/30/21 Griffin Joshi MD [address] [facility] [address] [place] [address] Cardiovascular Disease 07/25/21 Rina Magallon, RN Lead Environmental Services Supervisor 07/29/21 07/11/22 Griffin Joshi MD [address] [place] [address] Assigned Heart and Vascular Provider 08/06/21 10/07/21 Roopa Almonte MD [address] [facility] [address] [place], [place] [address] Assigned Endocrinology Provider 09/10/21 02/24/24 [place] [address] [facility] [place] [address] Assigned Musculoskeletal Provider 09/17/21 10/14/21 Lydia Bernstein PA-C [address] [place] [address] Assigned PCP 10/01/21 10/21/21 Rosa Maria Love [facility] Community Health Worker 10/06/21 07/11/22 [place] [address] [facility] [address] [place] [address] Assigned Musculoskeletal Provider 10/15/21 04/26/23 Paula Reza MD INACTIVE IN [place] 02/02/2024 Assigned PCP 10/22/21 12/23/21 Keerthi Miner, SQUEEZER OPERATOR ESL PROFESSOR [address] [place] [address] Assigned Heart and Vascular Provider 10/08/21 02/10/22 Shahida Sutton APRN ESL PROFESSOR Assigned PCP 12/24/21 03/24/22 Porsha Michaels APRN ESL PROFESSOR [address] [place] [address] Assigned Heart and Vascular Provider 02/11/22 05/12/22 Paula Reza MD INACTIVE IN [place] 02/02/2024 Assigned PCP 03/25/22 04/07/22 Shahida Sutton APRN ESL PROFESSOR [address] [place] [address] Assigned PCP 04/08/22 06/30/22 Daylin Ludwig, MIKI [facility] [address] [place] [address] Cardiac Rehabilitation Therapist 05/16/23 Laurel Velasquez MD [address] [place] [address] Assigned Heart and Vascular Provider 05/13/22 06/30/22 Daylin Ludwig, EP [facility] [address] [place] [address] Cardiac Rehabilitation Therapist 06/08/22 06/09/23 Paula Reza MD INACTIVE IN [place] 02/02/2024 Assigned PCP 07/01/22 07/07/22 Porsha Michaels APRN ESL PROFESSOR [address] [place] [address] Assigned Heart and Vascular Provider 07/01/22 07/07/22 Luarel Velasquez MD [address] [place] [address] Assigned Heart and Vascular Provider 07/08/22 08/04/22 Shahida Sutton, DUANE ESL PROFESSOR Assigned PCP 07/08/22 09/08/22 Marilin Montaño, ESL PROFESSOR [address] [place] [address] Assigned Heart and Vascular Provider 08/05/22 02/24/24 Esha Dewitt MD [address] [facility] [address] [place] [address] Gastroenterology 09/06/22 Heather Mosquera MD [address] [place] [address] Internal Medicine 09/06/22 Paula Reza MD INACTIVE IN [place] 02/02/2024 Assigned PCP 09/09/22 01/05/23 Esha Dewitt MD [address] [facility] [address] [place] [address] Assigned Gastroenterology Provider 09/23/22 04/26/24 Valdo Escamilla PA-C [address] [place] [address] Assigned Neuroscience Provider 09/30/22 04/26/24 Nohelia Abarca PA-C [address] [place] [address] Physician Inspector Balance Wheel Motion Gastroenterology 10/03/22 Heather Mosquera MD [address] [place] [address] Assigned PCP 01/06/23 Fawad York MD [address] [place], [place] [address] Assigned Musculoskeletal Provider 04/27/23 06/25/23 documented as of this encounter
--- OUTSIDE RECORDS SUMMARY | 2024-11-02 15:13 | XMS_ITS | Clinical Summary ---
Author Organization [facility] Address [address], [place] [address] Care Team Providers Care Planting Material Unloader Name Role Phone Ezra Roper MD Primary Care Provider [phone] Source Comments You are receiving this document as you are listed as the primary care provider,follow-up provider, or the patient has been referred to you for consultation.This is in compliance with the Medicare andL[facility] Municipal Hospitalcaid EHR Incentive Program,which states Providers who transition their patient to another setting of careor provider of care or refers their patient to another provider of care shouldprovide summary care record for each transition of care or referral. [employer] Allergies Active Allergy Reactions Criticality Noted Date Comments Lamotrigine Nausea And Vomiting 04/17/2019 Lisinopril Nausea And Vomiting 04/17/2019 Social History Tobacco Use Types Packs/Day Years Used Date Smoking Tobacco: Never Assessed Sex and Gender Information Value Date Recorded Sex Assigned at Not on file Legal Sex Male 9:15 AM CDT Gender Identity Not on file Sexual Orientation Not on file Last Filed Vital Signs Vital Sign Reading Time Taken Comments Blood Pressure 170/82 04/17/2019 3:06 PM TUBE TELLER Pulse 84 04/17/2019 3:06 PM TUBE TELLER Temperature 36.9 C (98.5 F) 04/17/2019 12:31 PM TUBE TELLER Respiratory Rate 18 04/17/2019 3:06 PM TUBE TELLER Oxygen Saturation 96% 04/17/2019 3:06 PM TUBE TELLER Inhaled Oxygen Concentration - - Weight - - Height - - Body Mass Index - - Plan of Treatment Health Maintenance Due Date Last Done Comments Colon Cancer Screening Plan Due 1960 Hep C Screening (Preventive Services) 1960 PSA Screening Discussion 1960 HIV Screening (Preventive Services) 1976 Adult Preventive Visit 1978 Cholesterol 12/07/1995 Zoster/Shingles Vaccine (1 of 2) 2010 Pneumococcal Vaccine 50+ Yrs (2 of 2 - PCV20 or PCV21) 09/02/2015 09/01/2014 COVID-19 Vaccine (1 - season) 2023 Influenza Vaccine (#1) 2024 9, 11/14/2016, 11/30/2014, Additional history exists DTaP/Tdap/Td Vaccine (3 - Tdap) 05/25/2026 05/25/2016, 02/15/2006 RSV Vaccine (1 - 1-dose 75+ series) 12/07/2035 HepA Vaccine Aged Out No longer eligi ble based on patient's age to complete this topic HepB Vaccine Aged Out No longer eligi ble based on patient's age to complete this topic Hib Vaccine Aged Out No longer eligi ble based on patient's age to complete this topic IPV (Polio) Vaccine Aged Out No longe r eligible based on patient's age to complete this topic MCV4 Vaccine Aged Out No longer eligi ble based on patient's age to complete this topic Meningococcal B Vaccine Aged Out No l onger eligible based on patient's age to complete this topic Insurance [facility] Care Teams Planting Material Unloader Relationship Specialty [place] [address] [address] PCP - General 06/04/10
--- OUTSIDE RECORDS SUMMARY | 2024-11-02 15:13 | XMS_ITS | Encounter Summary ---
Author Organization [facility] Address [address] [place] [address] Care Team Providers Care Virtual Customer Assistant Name Role Phone Dixon Carson MD Primary Care Provider Unavailable Mingo Aldana MD Primary Car e Provider HermanShahida APRN GROUP DIRECTOR Primary Care Provi ford Unavailable Herman, Shahida Cummings APRN GROUP DIRECTOR Unavailable Un available Herman, Shahida Cummings APRN GROUP DIRECTOR Unavailable Un available Carolynn Ramon RN Unavailable [phone] Augustine Callaway MD Unavailable Brady Lion MD Unavailable Un available Nima FranceC Unavailable [phone] Camille Chandler PA-C Unavailable [phone] Anabela Barakat APRN GROUP DIRECTOR Unavailable Nima FranceC Unavailable [phone] Basilio Morillo DO Unavailable [phone] Fawad York MD Unavailable [phone] Roopa Almonte MD Unavailable [phone] Augustine Callaway MD Unavailable Maryse Burton PA-C Unavailable Marquita Starkey MD Unavailable [phone] Roopa Almonte MD Unavailable [phone] Griffin Joshi MD Unavailable Rina Magallon RN Unavailable [phone] Paula Reza MD Primary Care Provider UnavailGriffin Youssef MD Unavailable Roopa Almonte MD Unavailable [phone] MarciaBasilio win Unavailable Lydia Bernstein PA-C Unavailable Rosa Maria Love Unavailable [phone] Augustine Callaway MD Unavailable Paula Reza MD Unavailable Unavailable Keerthi Miner APRN GROUP DIRECTOR Unavailable Herman, Shahida Cummings APRN GROUP DIRECTOR Unavailable Un available Porsha Michaels APRN GROUP DIRECTOR Unavailable [phone] Paula Reza MD Unavailable Unavailable HermanShahida huerta APRN GROUP DIRECTOR Unavailable Un available Daylin Ludwig Unavailable [phone] Laurel Velasquez MD Unavailable [phone] Daylin Ludwig Unavailable [phone] Paula Reza MD Unavailable Unavailable Porsha Michaels APRN GROUP DIRECTOR Unavailable [phone] Laurel Velasquez MD Unavailable [phone] Shahida Sutton APRN GROUP DIRECTOR Unavailable Un available Marilin Montaño GROUP DIRECTOR Unavailable Esha Dewitt MD Unavailable [phone] Heather Mosquera MD Unavailable Paula Reza MD Unavailable Unavailable Esha Dewitt MD Unavailable [phone] Valdo Escamilla PA-C Unavailable [phone] Nohelia Abarca PA-C Unavailable [phone] Heather Mosquera MD Unavailable [phone] Fawad York MD Unavailable [phone] Encounter Details Date Type Department Care Team (Late st Contact Info) Description 06/11/2007 [facility] [address] [address] Dixon Carson MD XXX HOSPITALIST/ED [...] AM CDT Legal 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 Gender Identity Male 09/20/2020 8:37 AM CDT Sexual Orientation Straight 09/20/2020 8: 37 AM CDT documented as of this encounter Plan of Treatment Not on file documented as of this encounter Visit Diagnoses Not on filedocumented in this encounter Additional Health Concerns Infection Onset Date Last Indicated Resolved Time Rule Out COVID-19 02/15/2020 02/15/2020 02/16/2020 2:32 PM FORMULA ROOM WORKER Rule Out COVID-19 01/05/2021 01/05/2021 01/06/2021 12:57 PM CDT ESBL 01/05/2021 01/05/2021 Rule Out COVID-19 06/30/2021 06/30/2021 07/01/2021 9:34 AM CDT Rule Out COVID-19 07/25/2021 07/25/2021 07/25/2021 8:02 PM CDT documented as of this encounter Care Teams Virtual Customer Assistant Relationship Specialty Start Date End Date Dixon Carson MD PCP - General 08/10/03 07/21/09 Mingo Aldana MD PCP - General Family Practice 07/22/09 07/12/14 Shahida Sutton APRN GROUP DIRECTOR PCP - General Nurse Practitioner 08/17/14 08/04/21 Shahida Sutton COAL PIPELINE OPERATOR GROUP DIRECTOR PCP - Assigned PCP 07/12/14 05/07/18 Paula Reza MD PCP - General Internal Medicine 08/05/21 Shahida Sutton APRN GROUP DIRECTOR Assigned PCP 07/12/14 09/30/21 Carolynn Ramon RN Personal Advocate & Liaison (PAL) 12/17/18 08/07/21 [place] [address] [place] [address] Assigned Musculoskeletal Provider 12/26/19 08/21/20 Brady Lion MD Assigned Heart and Vascular Provider 12/26/19 08/14/20 Nima France PA-C [address] [place] [address] Assigned Surgical Provider 05/19/20 08/21/20 Camille Chandler PA-C [address] [place] [id number] Assigned Neuroscience Provider 05/19/20 09/14/20 Anabela Barakat, DUANE GROUP DIRECTOR [address] [place] [address] Assigned Heart and Vascular Provider 08/15/20 08/05/21 Nima France PA-C [address] [facility] [address] [place] [address] Assigned Musculoskeletal Provider 08/22/20 11/13/20 [place] [address] [facility] [place], [place] [address] Assigned Musculoskeletal Provider 11/14/20 12/04/20 Fawad York MD [address] [place], [place] [address] Assigned Musculoskeletal Provider 12/05/20 02/05/21 Roopa Almonte MD [address] [facility] [address] [place], [place] [address] Endocrinology, Diabetes, and Metabolism 01/19/21 [place] [address] [facility] [address] [place] [address] Assigned Musculoskeletal Provider 02/06/21 09/16/21 Maryse Burton PA-C [address] [place] [address] Physician Pc Analyst Dermatology 04/14/21 Marquita Starkey MD [address] [facility] [address] [place], [place] [address] Internal Medicine 05/06/21 05/06/21 Roopa Almonte MD [address] [facility] [address] [place] [address] Hospitalist Endocrinology, Diabetes, and Metabolism 05/30/21 Griffin Joshi MD [address] [place] [address] Cardiovascular Disease 07/25/21 Rina Magallon, RN Lead Security Nurse 07/29/21 07/11/22 Griffin Joshi MD [address] [facility] [address] [place] [address] Assigned Heart and Vascular Provider 08/06/21 10/07/21 Roopa Almonte MD [address] [facility] [address] [place] [address] Assigned Endocrinology Provider 09/10/21 02/24/24 [place] [address] [facility] [place] [address] Assigned Musculoskeletal Provider 09/17/21 10/14/21 Lydia Bernstein PA-C [address] [facility] [address] [place] [address] Assigned PCP 10/01/21 10/21/21 Rosa Maria Love CHW Community Health Worker 10/06/21 [place] [address] [address] [facility] [address] [place] [address] Assigned Musculoskeletal Provider 10/15/21 04/26/23 Paula Reza MD [place] IN [place] 02/02/2024 Assigned PCP 10/22/21 12/23/21 Keerthi Miner APRN GROUP DIRECTOR [address] [place] [address] Assigned Heart and Vascular Provider 10/08/21 02/10/22 Shahida Sutton APRN GROUP DIRECTOR Assigned PCP 12/24/21 03/24/22 Porsha Michaels APRN GROUP DIRECTOR [address] [place] [address] Assigned Heart and Vascular Provider 02/11/22 05/12/22 Paula Reza MD [place]CTIVE IN [place] 02/02/2024 Assigned PCP 03/25/22 04/07/22 Shahida Sutton APRN GROUP DIRECTOR [address] [place] [address] Assigned PCP 04/08/22 06/30/22 Daylin Ludwig, EP [facility] [address] [place] [address] Cardiac Rehabilitation Therapist 05/16/23 Laurel Velasquez MD [address] [place] [address] Assigned Heart and Vascular Provider 05/13/22 06/30/22 Daylin Ludwig, EP [facility] [address] [place] [address] Cardiac Rehabilitation Therapist 06/08/22 06/09/23 Paula Reza MD [place] 02/02/2024 Assigned PCP 07/01/22 07/07/22 Porsha Michaels APRN GROUP DIRECTOR [address] [place] [address] Assigned Heart and Vascular Provider 07/01/22 07/07/22 Laurel Velasquez MD [address] [place] [address] Assigned Heart and Vascular Provider 07/08/22 08/04/22 Shahida Sutton APRN GROUP DIRECTOR Assigned PCP 07/08/22 09/08/22 Marilin Montaño, GROUP DIRECTOR [address] [place] [address] Assigned Heart and Vascular Provider 08/05/22 02/24/24 Esha Dewitt MD [address] [address] Gastroenterology 09/06/22 Heather Mosquera MD [address] [place] [address] Internal Medicine 09/06/22 Paula Reza MD [place] 02/02/2024 Assigned PCP 09/09/22 01/05/23 Esha Dewitt MD [address] 5[address]355 Assigned Gastroenterology Provider 09/23/22 04/26/24 Valdo Escamilla PA-C [address] [place] [address] Assigned Neuroscience Provider 09/30/22 04/26/24 Nohelia Abarca PA-C [address] [place] [address] Physician Pc Analyst Gastroenterology 10/03/22 Heather Mosquera MD [address] [place] [address] Assigned PCP 01/06/23 Fawad York MD [address] [place] [address] Assigned Musculoskeletal Provider 04/27/23 06/25/23 documented as of this encounter
--- OUTSIDE RECORDS SUMMARY | 2024-11-02 15:13 | XMS_ITS | Encounter Summary ---
Author Organization [place] Address [address] [place] [address] Care Team Providers Care Skidder Driver Name Role Phone Dixon Carson MD Primary Care Provider Unavailable Mingo Aldana MD Primary Car e Provider HermanShahida APRN FINANCIAL SALES MANAGER Primary Care Provi ford Unavailable Herman, Shahida Cummings APRN FINANCIAL SALES MANAGER Unavailable Un available Herman, Shahida Cummings APRN FINANCIAL SALES MANAGER Unavailable Un available Carolynn Ramon RN Unavailable [phone] Augustine Callaway MD Unavailable Brady Lion MD Unavailable Un available Nima FranceC Unavailable [phone] Camille Chandler PA-C Unavailable [phone] Anabela Barakat APRN FINANCIAL SALES MANAGER Unavailable Nima FranceC Unavailable [phone] Basilio Morillo DO Unavailable [phone] Fawad York MD Unavailable [phone] Roopa Almonte MD Unavailable [phone] Augustine Callaway MD Unavailable Maryse Burton PA-C Unavailable Marquita Starkey MD Unavailable [phone] Roopa Almonte MD Unavailable [phone] Griffin Joshi MD Unavailable Rina Magallon RN Unavailable [phone] Paula Reza MD Primary Care Provider UnavailGriffin Yosusef MD Unavailable Roopa Almonte MD Unavailable [phone] MarciaBasilio win Unavailable Lydia Bernstein PA-C Unavailable Rosa Maria Love Unavailable [phone] Augustine Callaway MD Unavailable Paula Reza MD Unavailable Unavailable Keerthi Miner APRN FINANCIAL SALES MANAGER Unavailable Herman, Shahida Cummings APRN FINANCIAL SALES MANAGER Unavailable Un available Porsha Michaels APRN FINANCIAL SALES MANAGER Unavailable [phone] Paula Reza MD Unavailable Unavailable HermanShahida huerta APRN FINANCIAL SALES MANAGER Unavailable Un available Daylin Ludwig Unavailable [phone] Laurel Velasquez MD Unavailable [phone] Daylin Ludwig Unavailable [phone] Paula Reza MD Unavailable Unavailable Porsha Michaels APRN FINANCIAL SALES MANAGER Unavailable [phone] Laurel Velasquez MD Unavailable [phone] Shahida Sutton APRN FINANCIAL SALES MANAGER Unavailable Un available Marilin Montaño FINANCIAL SALES MANAGER Unavailable Esha Dewitt MD Unavailable [phone] Heather Mosquera MD Unavailable [phone] Paula Reza MD Unavailable Unavailable Esha Dewitt MD Unavailable [phone] Valdo Escamilla PA-C Unavailable [phone] Nohelia Abarca PA-C Unavailable [phone] Heather Mosquera MD Unavailable [phone] Fawad York MD Unavailable [phone] Reason for Visit * Reason Onset Date Comments Refill Request 08/28/2008 hydrocodone Encounter Details Date Type Department Care Team (Late st Contact Info) Description 08/28/[address] [address] Dixon Carson MD XXX HOSPITALIST/ED DOCTOR XXX Refill Request (hydrocodone) Social History Tobacco Use [...] AM CDT Legal 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 Gender Identity Male 09/20/2020 8:37 AM [...] Jones - 08/28/2008 3:08 PM CDTMessage [facility]: Mauro Terrell would like a refill of the following medications: HYDROCODONE-ACETAMINOPHEN 10-325 MG OR TABS [Dixon Carson MD] Preferred pharmacy: [facility] Comment: Daily headaches continuing documented in this [...] Out COVID-19 02/15/2020 02/15/2020 02/16/2020 2:32 PM BAG MACHINE OPERATOR Rule Out COVID-19 01/05/2021 01/05/2021 01/06/2021 12:57 PM CDT ESBL 01/05/2021 01/05/2021 Rule Out COVID-19 06/30/2021 06/30/2021 07/01/2021 9:34 AM CDT Rule Out COVID-19 07/25/2021 07/25/2021 07/25/2021 8:02 PM CDT documented as of this encounter Care Teams Skidder Driver Relationship Specialty Start Date End Date Dixon Carson MD PCP - General 08/10/03 07/21/09 Mingo Aldana MD PCP - General Family Practice 07/22/09 07/12/14 Shahida Sutton APRN FINANCIAL SALES MANAGER PCP - General Nurse Practitioner 08/17/14 08/04/21 Shahida Sutton APRN FINANCIAL SALES MANAGER PCP - Assigned PCP 07/12/14 05/07/18 Paula Reza MD PCP - General Internal Medicine 08/05/21 Shahida Sutton APRN FINANCIAL SALES MANAGER Assigned PCP 07/12/14 09/30/21 Carolynn Ramon, KASIE Personal Advocate & Liaison (PAL) 12/17/18 08/07/21 [place] [address] [address] [place] [address] Assigned Musculoskeletal Provider 12/26/19 08/21/20 Brady Lion MD Assigned Heart and Vascular Provider 12/26/19 08/14/20 Nima France PA-C [address] [facility] [address] [place] [address] Assigned Surgical Provider 05/19/20 08/21/20 Camille Chandler PA-C [address] [facility] [address] [place] [address] Assigned Neuroscience Provider 05/19/20 09/14/20 Anabela Barakat APRN FINANCIAL SALES MANAGER [address] [place] [address] Assigned Heart and Vascular Provider 08/15/20 08/05/21 Nima France PA-C [address] [facility] [address] [place] [address] Assigned Musculoskeletal Provider 08/22/20 11/13/20 [place] [address] [facility] [place] [address] Assigned Musculoskeletal Provider 11/14/20 12/04/20 Fawad York MD [address] [place] [address] Assigned Musculoskeletal Provider 12/05/20 02/05/21 Roopa Almonte MD [address] [facility] 200 [place] [address] Endocrinology, Diabetes, and Metabolism 01/19/21 [place] [address] [facility] [address] [place] [address] Assigned Musculoskeletal Provider 02/06/21 09/16/21 Maryse Burton PA-C [address] [place] [address] Physician Revenue Investigator Dermatology 04/14/21 Marquita Starkey MD [address] [facility] 200 [place] [address] Internal Medicine 05/06/21 05/06/21 Roopa Almonte MD [address] [facility] [address] [place], [place] [address] Hospitalist Endocrinology, Diabetes, and Metabolism 05/30/21 Griffin Joshi MD [address] [facility] [address] [place] [address] Cardiovascular Disease 07/25/21 Rina Magallon, RN Lead Teacher Counselor 07/29/21 07/11/22 Griffin Joshi MD [address] [facility] [address] [place] [address] Assigned Heart and Vascular Provider 08/06/21 10/07/21 Roopa Almonte MD [address] [facility] 200 [place] [address] Assigned Endocrinology Provider 09/10/21 02/24/24 [place] [address] [facility] [place] [address] Assigned Musculoskeletal Provider 09/17/21 10/14/21 Lydia Bernstein PA-C [address] [place] [address] Assigned PCP 10/01/21 10/21/21 Rosa Maria Love CHW Community Health Worker 10/06/21 [place] [address] [place] [address] Assigned Musculoskeletal Provider 10/15/21 04/26/23 Paula Reza MD [place]NACTIVE IN [place] 02/02/2024 Assigned PCP 10/22/21 12/23/21 Keerthi Miner APRN FINANCIAL SALES MANAGER [address] [place] [address] Assigned Heart and Vascular Provider 10/08/21 02/10/22 Shahida Sutton, ENTERTAINMENT DANCER FINANCIAL SALES MANAGER Assigned PCP 12/24/21 03/24/22 Porsha Michaels APRN FINANCIAL SALES MANAGER [address] [place] [address] Assigned Heart and Vascular Provider 02/11/22 05/12/22 Paula Reza MD [place]CT[place] IN [place] 02/02/2024 Assigned PCP 03/25/22 04/07/22 Shahida Sutton APRN FINANCIAL SALES MANAGER [address] [place] [address] Assigned PCP 04/08/22 06/30/22 Daylin Ludwig, MIKI [facility] [address] [place] [address] Cardiac Rehabilitation Therapist 05/16/23 Laurel Velasquez MD [address] [place] [address] Assigned Heart and Vascular Provider 05/13/22 06/30/22 Daylin Ludwig, EP [facility] [address] [place] [address] Cardiac Rehabilitation Therapist 06/08/22 06/09/23 Paula Reza MD [place] 02/02/2024 Assigned PCP 07/01/22 07/07/22 Porsha Michaels APRN FINANCIAL SALES MANAGER [address] [place] [address] Assigned Heart and Vascular Provider 07/01/22 07/07/22 Laurel Velasquez MD [address] [place] [address] Assigned Heart and Vascular Provider 07/08/22 08/04/22 Shahida Sutton APRN FINANCIAL SALES MANAGER Assigned PCP 07/08/22 09/08/22 Marilin Montaño, FINANCIAL SALES MANAGER [address] [place] [address] Assigned Heart and Vascular Provider 08/05/22 02/24/24 Esha Dewitt MD [address] [address] Gastroenterology 09/06/22 Heather Mosquera MD [address] [place] [address] Internal Medicine 09/06/22 Paula Reza MD [place] 02/02/2024 Assigned PCP 09/09/22 01/05/23 Esha Dewitt MD [address] [place] [address] Assigned Gastroenterology Provider 09/23/22 04/26/24 Valdo Escamilla PA-C [address] [place] [address] Assigned Neuroscience Provider 09/30/22 04/26/24 Nohelia Abarca PA-C [address] [place] [address] Physician Revenue Investigator Gastroenterology 10/03/22 Heather Mosquera MD [address] [place] [address] Assigned PCP 01/06/23 Fawad York MD [address] [place], [place] [address] Assigned Musculoskeletal Provider 04/27/23 06/25/23 documented as of this encounter
--- OUTSIDE RECORDS SUMMARY | 2024-11-02 15:13 | XMS_ITS | Encounter Summary ---
Author Organization [facility] Address [address] [place] [address] Care Team Providers Care Appraiser Land Name Role Phone Dixon Carson MD Primary Care Provider Unavailable Mingo Aldana MD Primary Car e Provider HermanShahida APRN ARMED SECURITY OFFICER Primary Care Provi ford Unavailable Herman, Shahida Cummings APRN ARMED SECURITY OFFICER Unavailable Un available Herman, Shahida Cummings APRN ARMED SECURITY OFFICER Unavailable Un available Carolynn Ramon RN Unavailable [phone] Augustine Callaway MD Unavailable Brady Lion MD Unavailable Un available Nima FranceC Unavailable [phone] Camille Chandler PA-C Unavailable [phone] Anabela Barakat APRN ARMED SECURITY OFFICER Unavailable Nima FranceC Unavailable [phone] Basilio Morillo DO Unavailable [phone] Fawad York MD Unavailable [phone] Roopa Almonte MD Unavailable [phone] Augustine Callaway MD Unavailable Maryse Burton PA-C Unavailable Marquita Starkey MD Unavailable [phone] Roopa Almonte MD Unavailable [phone] Griffin Joshi MD Unavailable Rina Magallon RN Unavailable [phone] Paula Reza MD Primary Care Provider UnavailGriffin Youssef MD Unavailable Roopa Almonte MD Unavailable [phone] MarciaBasilio win Unavailable Lydia Bernstein PA-C Unavailable Rosa Maria Love Unavailable [phone] Augustine Callaway MD Unavailable Paula Reza MD Unavailable Unavailable Keerthi Miner APRN ARMED SECURITY OFFICER Unavailable Herman, Shahida Cummings APRN ARMED SECURITY OFFICER Unavailable Un available Porsha Michaels APRN ARMED SECURITY OFFICER Unavailable [phone] Paula Reza MD Unavailable Unavailable HermanShahida huerta APRN ARMED SECURITY OFFICER Unavailable Un available Daylin Ludwig Unavailable [phone] Laurel Velasquez MD Unavailable [phone] Daylin Ludwig Unavailable [phone] Paula Reza MD Unavailable Unavailable Porsha Michaels APRN ARMED SECURITY OFFICER Unavailable [phone] Laurel Velasquez MD Unavailable [phone] Shahida Sutton APRN ARMED SECURITY OFFICER Unavailable Un available Marilin Montaño ARMED SECURITY OFFICER Unavailable Esha Dewitt MD Unavailable [phone] Heather Mosquera MD Unavailable Paula Reza MD Unavailable Unavailable Esha Dewitt MD Unavailable [phone] Valdo Escamilla PA-C Unavailable [phone] Nohelia Abarca PA-C Unavailable [phone] Heather Mosquera MD Unavailable [phone] Fawad York MD Unavailable [phone] Encounter Details Date Type Department Care Team [...] AM CDT 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 I can be contact by phone at [phone] Please rx medications, pharmacy t'd up. Please notify patient when done. Either mychart or via phone. Re-route to [facility] when [place] is done. Thank you. Porsha Donell OIL DERRICK OPERATOR documented in this encounter Plan of Treatment Not on file documented as of this encounter Visit Diagnoses Diagnosis DIABETES UNCOMPL ADULT-TYPE II- Primary Type II or unspecified type diabetes mellitus without mention of complication, not stated as uncontrolled documented in this encounter Additional Health Concerns Infection Onset Date Last Indicated Resolved Time Rule Out COVID-19 02/15/2020 02/15/2020 02/16/2020 2:32 PM MANAGER ANALYTICAL Rule Out COVID-19 01/05/2021 01/05/2021 01/06/2021 12:57 PM CDT ESBL 01/05/2021 01/05/2021 Rule Out COVID-19 06/30/2021 06/30/2021 07/01/2021 9:34 AM CDT Rule Out COVID-19 07/25/2021 07/25/2021 07/25/2021 8:02 PM CDT documented as of this encounter Care Teams Appraiser Land Relationship Specialty Start Date End Date Dixon Carson MD PCP - General 08/10/03 07/21/09 Mingo Aldana MD PCP - General Family Practice 07/22/09 07/12/14 Shahida Sutton APRN ARMED SECURITY OFFICER PCP - General Nurse Practitioner 08/17/14 08/04/21 Shahida Sutton APRN ARMED SECURITY OFFICER PCP - Assigned PCP 07/12/14 05/07/18 Paula Reza MD PCP - General Internal Medicine 08/05/21 Shahida Sutton APRN ARMED SECURITY OFFICER Assigned PCP 07/12/14 09/30/21 Carolynn Ramon, KASIE Personal Advocate & Liaison (PAL) 12/17/18 08/07/21 Augustine [place] [id number] [place] [address] [place] [address] Assigned Musculoskeletal Provider 12/26/19 08/21/20 Brady Lion MD Assigned Heart and Vascular Provider 12/26/19 08/14/20 Nima France PA-C [address] [facility] [address] [place], [place] [address] Assigned Surgical Provider 05/19/20 08/21/20 Camille Chandler PA-C [address] [facility] [address] [place] [address] Assigned Neuroscience Provider 05/19/20 09/14/20 Anabela Barakat APRN ARMED SECURITY OFFICER [address] [place] [address] Assigned Heart and Vascular Provider 08/15/20 08/05/21 Nima France PA-C [address] [address] Assigned Musculoskeletal Provider 08/22/20 11/13/20 [place] [address] [facility] [place] [address] Assigned Musculoskeletal Provider 11/14/20 12/04/20 Fawad York MD [address] [place] [address] Assigned Musculoskeletal Provider 12/05/20 02/05/21 Roopa Almonte MD [address] [facility] [address] [place] [address] Endocrinology, Diabetes, and Metabolism 01/19/21 [place] [address] [facility] [address] [place] [address] Assigned Musculoskeletal Provider 02/06/21 09/16/21 Maryse Burton PA-C [address] [place] [address] Physician Beader Tender Dermatology 04/14/21 Marquita Starkey MD [address] [facility] 200 [place] [address] Internal Medicine 05/06/21 05/06/21 Roopa Almonte MD [address] [facility] 200 [place] [address] Hospitalist Endocrinology, Diabetes, and Metabolism 05/30/21 Griffin Joshi MD [address] [place] [address] Cardiovascular Disease 07/25/21 Rina Magallon, RN Lead Customer Account Manager 07/29/21 07/11/22 Griffin Joshi MD [address] [place] [address] Assigned Heart and Vascular Provider 08/06/21 10/07/21 Roopa Almonte MD [address] [facility] [address] [place], [place] [address] Assigned Endocrinology Provider 09/10/21 02/24/24 [place] [address] [facility] [place], [place] [address] Assigned Musculoskeletal Provider 09/17/21 10/14/21 Lydia Bernstein PA-C [address] [place] [address] Assigned PCP 10/01/21 10/21/21 Rosa Maria Love CHW Community Health Worker 10/06/21 [place] [address] [place] [address] Assigned Musculoskeletal Provider 10/15/21 04/26/23 Paula Reza MD [place]CTIVE IN [place] 02/02/2024 Assigned PCP 10/22/21 12/23/21 Keerthi Miner APRN ARMED SECURITY OFFICER [address] [place] [address] Assigned Heart and Vascular Provider 10/08/21 02/10/22 Shahida Sutton APRN ARMED SECURITY OFFICER Assigned PCP 12/24/21 03/24/22 Porsha Michaels APRN ARMED SECURITY OFFICER [address] [place] [address] Assigned Heart and Vascular Provider 02/11/22 05/12/22 Paula Reza MD [place]IVE IN [place] 02/02/2024 Assigned PCP 03/25/22 04/07/22 Shahida Sutton APRN ARMED SECURITY OFFICER [address] [place] [address] Assigned PCP 04/08/22 06/30/22 Daylin Ludwig, [facility] [address] [place] [address] Cardiac Rehabilitation Therapist 05/16/23 Laurel Velasquez MD [address] [place] [address] Assigned Heart and Vascular Provider 05/13/22 06/30/22 Daylin Ludwig, [facility] [address] [place] [address] Cardiac Rehabilitation Therapist 06/08/22 06/09/23 Paula Reza MD INACTIVE IN [place] 02/02/2024 Assigned PCP 07/01/22 07/07/22 Porsha Michaels APRN ARMED SECURITY OFFICER [address] [place] [address] Assigned Heart and Vascular Provider 07/01/22 07/07/22 Laurel Velasquez MD [address] [place] [address] Assigned Heart and Vascular Provider 07/08/22 08/04/22 Shahida Sutton APRN ARMED SECURITY OFFICER Assigned PCP 07/08/22 09/08/22 Marilin Montaño, ARMED SECURITY OFFICER [address] [place] [address] Assigned Heart and Vascular Provider 08/05/22 02/24/24 Esha Dewitt MD [address] [address] Gastroenterology 09/06/22 Heather Mosquera MD [address] [place] [address] Internal Medicine 09/06/22 Paula Reza MD I[place]CTIVE IN [place] 02/02/2024 Assigned PCP 09/09/22 01/05/23 Esha Dewitt MD [address] [address] Assigned Gastroenterology Provider 09/23/22 04/26/24 Valdo Escamilla PA-C [address] [place] [address] Assigned Neuroscience Provider 09/30/22 04/26/24 Nohelia Abarca PA-C [address] [place] [address] Physician Beader Tender Gastroenterology 10/03/22 Heather Mosquera MD [address] [place] [address] Assigned PCP 01/06/23 Fawad York MD [address] [place] [address] Assigned Musculoskeletal Provider 04/27/23 06/25/23 documented as of this encounter
--- OUTSIDE RECORDS SUMMARY | 2024-11-02 15:13 | XMS_ITS | Encounter Summary ---
Author Organization [facility] Address [address] [place] [address] Care Team Providers Care Motorcycle Subassembler Name Role Phone Dixon Carson MD Primary Care Provider Unavailable Mingo Aldana MD Primary Car e Provider HermanShahida APRN CEMENT DESPATCH OPERATOR Primary Care Provi ford Unavailable Herman, Shahida Cummings APRN CEMENT DESPATCH OPERATOR Unavailable Un available Herman, Shahida Cummings APRN CEMENT DESPATCH OPERATOR Unavailable Un available Carolynn Ramon RN Unavailable [phone] Augustine Callaway MD Unavailable Brady Lion MD Unavailable Un available Nima FranceC Unavailable [phone] Camille Chandler PA-C Unavailable [phone] Anabela Barakat APRN CEMENT DESPATCH OPERATOR Unavailable Nima FranceC Unavailable [phone] Basilio Morillo DO Unavailable [phone] Fawad Yrok MD Unavailable [phone] Roopa Almonte MD Unavailable [phone] Augustine Callaway MD Unavailable Maryse Burton PA-C Unavailable Marquita Starkey MD Unavailable [phone] Roopa Almonte MD Unavailable [phone] Griffin Joshi MD Unavailable Rina Magallon RN Unavailable [phone] Paula Reza MD Primary Care Provider UnavailGriffin Youssef MD Unavailable Roopa Almonte MD Unavailable [phone] MarciaBasilio win Unavailable Lydia Bernstein PA-C Unavailable Rosa Maria Love Unavailable [phone] Augustine Callaway MD Unavailable Paula Reza MD Unavailable Unavailable Keerthi Miner APRN CEMENT DESPATCH OPERATOR Unavailable Herman, Shahida Cummings APRN CEMENT DESPATCH OPERATOR Unavailable Un available Porsha Michaels APRN CEMENT DESPATCH OPERATOR Unavailable [phone] Paula Reza MD Unavailable Unavailable HermanShahida huerta APRN CEMENT DESPATCH OPERATOR Unavailable Un available Daylin Ludwig Unavailable [phone] Laurel Velasquez MD Unavailable [phone] Daylin Ludwig Unavailable [phone] Paula Reza MD Unavailable Unavailable Porsha Michaels APRN CEMENT DESPATCH OPERATOR Unavailable [phone] Laurel Velasquez MD Unavailable [phone] Shahida Sutton APRN CEMENT DESPATCH OPERATOR Unavailable Un available Marilin Montaño CEMENT DESPATCH OPERATOR Unavailable Esha Dewitt MD Unavailable [phone] Heather Mosquera MD Unavailable Paula Reza MD Unavailable Unavailable Esha Dewitt MD Unavailable [phone] Valdo Escamilla PA-C Unavailable [phone] Nohelia Abarca PA-C Unavailable [phone] Heather Mosquera MD Unavailable [phone] Fawad York MD Unavailable [phone] Reason for Visit * Reason Onset Date Comments Pt. Information/instruction 06/13/2007 Encounter Details Date Type Department Care Team (Late st Contact Info) Description 06/12/2007 [facility] Medical Advice [address] [address] Dixon Carson MD XXX HOSPITALIST/ED DOCTOR XXX Pt. 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 Gender Identity Male 09/20/2020 8:37 AM CDT Sexual Orientation Straight 09/20/2020 8: 37 AM CDT documented as of this encounter Plan of Treatment Not on file documented as of this encounter Visit Diagnoses Not on filedocumented in this encounter Additional Health Concerns Infection Onset Date Last Indicated Resolved Time Rule Out COVID-19 02/15/2020 02/15/2020 02/16/2020 2:32 PM MILLINERY DESIGNER Rule Out COVID-19 01/05/2021 01/05/2021 01/06/2021 12:57 PM CDT ESBL 01/05/2021 01/05/2021 Rule Out COVID-19 06/30/2021 06/30/2021 07/01/2021 9:34 AM CDT Rule Out COVID-19 07/25/2021 07/25/2021 07/25/2021 8:02 PM CDT documented as of this encounter Care Teams Motorcycle Subassembler Relationship Specialty Start Date End Date Dixon Carson MD PCP - General 08/10/03 07/21/09 Mingo Aldana MD PCP - General Family Practice 07/22/09 07/12/14 Shahida Sutton APRN CEMENT DESPATCH OPERATOR PCP - General Nurse Practitioner 08/17/14 08/04/21 Shahida Sutton APRN CEMENT DESPATCH OPERATOR PCP - Assigned PCP 07/12/14 05/07/18 Paula Reza MD PCP - General Internal Medicine 08/05/21 Shahida Sutton APRN CEMENT DESPATCH OPERATOR Assigned PCP 07/12/14 09/30/21 Carolynn Ramon RN Personal Advocate & Liaison (PAL) 12/17/18 08/07/21 [place] [address] [place] [address] Assigned Musculoskeletal Provider 12/26/19 08/21/20 Brady Lion MD Assigned Heart and Vascular Provider 12/26/19 08/14/20 Nima France PA-C [address] [place] [address] Assigned Surgical Provider 05/19/20 08/21/20 Camille Chandler PA-C [address] [place] [address] Assigned Neuroscience Provider 05/19/20 09/14/20 Anabela Barakat APRN CEMENT DESPATCH OPERATOR [address] [place] [address] Assigned Heart and Vascular Provider 08/15/20 08/05/21 Nima France PA-C [address] [facility] 450 [place] [address] Assigned Musculoskeletal Provider 08/22/20 11/13/20 [place] [address] [place] [address] Assigned Musculoskeletal Provider 11/14/20 12/04/20 Fawad York MD 909 [place] [address] Assigned Musculoskeletal Provider 12/05/20 02/05/21 Roopa Almonte MD [address] [facility] 200 [place] [address] Endocrinology, Diabetes, and Metabolism 01/19/21 [place] [address] [facility] [address] [place] [address] Assigned Musculoskeletal Provider 02/06/21 09/16/21 Maryse Burton PA-C [address] [place] [address] Physician Web Search Evaluator Dermatology 04/14/21 Marquita Starkey MD [address] [facility] [address] [place], [place] [address] Internal Medicine 05/06/21 05/06/21 Roopa Almonte MD [address] [place] [address] Hospitalist Endocrinology, Diabetes, and Metabolism 05/30/21 Griffin Joshi MD [address] [place] [address] Cardiovascular Disease 07/25/21 Rina Magallon, RN Lead Organization Development Consultant 07/29/21 07/11/22 Griffin Joshi MD [address] [place] [address] Assigned Heart and Vascular Provider 08/06/21 10/07/21 Roopa Almonte MD [address] [place], [place] [address] Assigned Endocrinology Provider 09/10/21 02/24/24 [place] [address] [facility] [place] [address] Assigned Musculoskeletal Provider 09/17/21 10/14/21 Lydia Bernstein PA-C [address] [place] [address] Assigned PCP 10/01/21 10/21/21 Rosa Maria Love CHW Community Health Worker 10/06/21 [place] [address] [place] [address] Assigned Musculoskeletal Provider 10/15/21 04/26/23 Paula Reza MD INACTIVE IN [place] 02/02/2024 Assigned PCP 10/22/21 12/23/21 Keerthi Miner APRN CEMENT DESPATCH OPERATOR [address] [place] [address] Assigned Heart and Vascular Provider 10/08/21 02/10/22 Shahida Sutton APRN CEMENT DESPATCH OPERATOR Assigned PCP 12/24/21 03/24/22 Porsha Michaels APRN CEMENT DESPATCH OPERATOR [address] [place] [address] Assigned Heart and Vascular Provider 02/11/22 05/12/22 Paula Reza MD [place]CTIVE IN [place] 02/02/2024 Assigned PCP 03/25/22 04/07/22 Shahida Sutton APRN CEMENT DESPATCH OPERATOR [address] [place] [address] Assigned PCP 04/08/22 06/30/22 Daylin Ludwig, [facility] [address] [place] [address] Cardiac Rehabilitation Therapist 05/16/23 Laurel Velasquez MD [address] [place] [address] Assigned Heart and Vascular Provider 05/13/22 06/30/22 Daylin Ludwig, [facility] [address] [place] [address] Cardiac Rehabilitation Therapist 06/08/22 06/09/23 Paula Reza MD [place]CTIVE IN [place] 02/02/2024 Assigned PCP 07/01/22 07/07/22 Porsha Michaels APRN CEMENT DESPATCH OPERATOR [address] [place] [address] Assigned Heart and Vascular Provider 07/01/22 07/07/22 Laurel Velasquez MD [address] [place] [address] Assigned Heart and Vascular Provider 07/08/22 08/04/22 Shahida Sutton, DUANE CEMENT DESPATCH OPERATOR Assigned PCP 07/08/22 09/08/22 Marilin Montaoñ, CEMENT DESPATCH OPERATOR [address] [place] [address] Assigned Heart and Vascular Provider 08/05/22 02/24/24 Esha Dewitt MD [address] [facility] [address] [place], [place] [address] Gastroenterology 09/06/22 Heather Mosquera MD [address] [place], [place] [address] Internal Medicine 09/06/22 Paula Reza MD [place]CTIVE IN [place] 02/02/2024 Assigned PCP 09/09/22 01/05/23 Esha Dewitt MD [address] [place] [address] 36 [place] [address] Assigned Gastroenterology Provider 09/23/22 04/26/24 Valdo Escamilla PA-C [address] [place] [address] Assigned Neuroscience Provider 09/30/22 04/26/24 Nohelia Abarca PA-C [address] [place] [address] Physician Web Search Evaluator Gastroenterology 10/03/22 Heather Mosquera MD [address] [place] [address] Assigned PCP 01/06/23 Fawad York MD [address] [place] [address] Assigned Musculoskeletal Provider 04/27/23 06/25/23 documented as of this encounter
--- OUTSIDE RECORDS SUMMARY | 2024-11-02 15:13 | XMS_ITS | Encounter Summary ---
Author Organization [facility] Address [address] [place] [address] Care Team Providers Care Slot Supervisor Name Role Phone Dixon Carson MD Primary Care Provider Unavailable Mingo Aldana MD Primary Car e Provider HermanShahida APRN SINGLE END SEWER Primary Care Provi ford Unavailable Herman, Shahida Cummings APRN SINGLE END SEWER Unavailable Un available Herman, Shahida Cummings APRN SINGLE END SEWER Unavailable Un available Carolynn Ramon RN Unavailable [phone] Augustine Callaway MD Unavailable Brady Lion MD Unavailable Un available Nima FranceC Unavailable [phone] Camille Chandler PA-C Unavailable [phone] Anabela Barakat APRN SINGLE END SEWER Unavailable Nima FranceC Unavailable [phone] Basilio Morillo DO Unavailable [phone] Fawad York MD Unavailable [phone] Roopa Almonte MD Unavailable [phone] Augustine Callaway MD Unavailable Maryse Burton PA-C Unavailable Marquita Starkey MD Unavailable [phone] Roopa Almonte MD Unavailable [phone] Griffin Joshi MD Unavailable Rina Magallon RN Unavailable [phone] Paula Reza MD Primary Care Provider UnavailGriffin Youssef MD Unavailable Roopa Almonte MD Unavailable [phone] MarciaBasilio win Unavailable Lydia Bernstein PA-C Unavailable Rosa Maria Love Unavailable [phone] Augustine Callaway MD Unavailable Paula Reza MD Unavailable Unavailable Keerthi Miner APRN SINGLE END SEWER Unavailable Herman, Shahida Cummings APRN SINGLE END SEWER Unavailable Un available Porsha Michaels APRN SINGLE END SEWER Unavailable [phone] Paula Reza MD Unavailable Unavailable HermanShahida huerta APRN SINGLE END SEWER Unavailable Un available Daylin Ludwig Unavailable [phone] Laurel Velasquez MD Unavailable [phone] Daylin Ludwig Unavailable [phone] Paula Reza MD Unavailable Unavailable Porsha Michaels APRN SINGLE END SEWER Unavailable [phone] Laurel Velasquez MD Unavailable [phone] Shahida Sutton APRN SINGLE END SEWER Unavailable Un available Marilin Montaño SINGLE END SEWER Unavailable Esha Dewitt MD Unavailable [phone] Heather Mosquera MD Unavailable [phone] Paula Reza MD Unavailable Unavailable Esha Dewitt MD Unavailable [phone] Valdo Escamilla PA-C Unavailable +[phone] Nohelia Abarca PA-C Unavailable [phone] Heather Mosquera MD Unavailable [phone] Fawad York MD Unavailable [phone] Reason for Visit * Reason Onset Date Comments Refill Request 02/03/2008 Rickie Cohen Encounter Details Date Type Department Care Team (Late st Contact Info) Description 02/02/2008 MyC Refill [address] [address] Dixon Carson MD XXX HOSPITALIST/ED DOCTOR XXX Refill Request (Rickie Cohen) Social History Tobacco [...] AM CDT Legal 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 Last Seen: 12/30/07 with [place] for Lumbago Rtc instructions: none given Last Filled: 01/07/08 #30 Sonia Dodd RN. ULATOR * Telephone Encounter - Sonia Dodd - 02/03/2008 9:06 AM CSTMessage from MyChart: Original authorizing provider: Dixon Terrell would like a refill of the following medications: AMBIEN 10 MG OR TABS [Dixon Carson MD] Preferred pharmacy: [facility] [place] Comment: ULATOR documented in this encounter Plan of Treatment Not on file documented as of this encounter Visit Diagnoses Diagnosis Insomnia with sleep apnea, unspecified documented in this encounter Additional Health Concerns Infection Onset Date Last Indicated Resolved Time Rule Out COVID-19 02/15/2020 02/15/2020 02/16/2020 2:32 PM INOCULATOR Rule Out COVID-19 01/05/2021 01/05/2021 01/06/2021 12:57 PM CDT ESBL 01/05/2021 01/05/2021 Rule Out COVID-19 06/30/2021 06/30/2021 07/01/2021 9:34 AM CDT Rule Out COVID-19 07/25/2021 07/25/2021 07/25/2021 8:02 PM CDT documented as of this encounter Care Teams Slot Supervisor Relationship Specialty Start Date End Date Dixon Carson MD PCP - General 08/10/03 07/21/09 Mingo Aldana MD PCP - General Family Practice 07/22/09 07/12/14 Shahida Sutton APRN SINGLE END SEWER PCP - General Nurse Practitioner 08/17/14 08/04/21 Shahida Sutton APRN SINGLE END SEWER PCP - Assigned PCP 07/12/14 05/07/18 Paula Reza MD PCP - General Internal Medicine 08/05/21 Shahida Sutton APRN CNP Assigned PCP 07/12/14 09/30/21 Carolynn Ramon RN Personal Advocate & Liaison (PAL) 12/17/18 08/07/21 [place] [address] [address] [facility] [address] [place] [address] Assigned Musculoskeletal Provider 12/26/19 08/21/20 Brady Lion MD Assigned Heart and Vascular Provider 12/26/19 08/14/20 Nima France PA-C [address] [facility] [address] [place] [address] Assigned Surgical Provider 05/19/20 08/21/20 Camille Chandler PA-C [address] [facility] [address] [place] [address] Assigned Neuroscience Provider 05/19/20 09/14/20 Anabela Barakat APRN SINGLE END SEWER [address] [place] [address] Assigned Heart and Vascular Provider 08/15/20 08/05/21 Nima France PA-C [address] [facility] [address] [place] [address] Assigned Musculoskeletal Provider 08/22/20 11/13/20 [place] [address] [facility] [place] [id number] Assigned Musculoskeletal Provider 11/14/20 12/04/20 Fawad York MD [address] [place] [address] Assigned Musculoskeletal Provider 12/05/20 02/05/21 Roopa Almonte MD [address] [facility] [address] [place] [address] Endocrinology, Diabetes, and Metabolism 01/19/21 [place] [address] [facility] [address] [place] [address] Assigned Musculoskeletal Provider 02/06/21 09/16/21 Maryse Burton PA-C [address] [place] [address] Physician Shrub Planter Dermatology 04/14/21 Marquita Starkey MD [address] [facility] 200 [place] [address] Internal Medicine 05/06/21 05/06/21 Roopa Almonte MD [address] [facility] [address] [place], [place] [address] Hospitalist Endocrinology, Diabetes, and Metabolism 05/30/21 Griffin Joshi MD [address] [facility] [address] [facility] [address] [place] [address] Cardiovascular Disease 07/25/21 Rina Magallon, RN Lead Lead Manufacturing Technician 07/29/21 07/11/22 Griffin Joshi MD [address] [facility] [address] [place] [address] Assigned Heart and Vascular Provider 08/06/21 10/07/21 Roopa Almonte MD [address] [facility] [address] [place], [place] [address] Assigned Endocrinology Provider 09/10/21 02/24/24 [place] [address] [facility] [place] [address] Assigned Musculoskeletal Provider 09/17/21 10/14/21 Lydia Bernstein PA-C [address] [place] [id number] Assigned PCP 10/01/21 10/21/21 Rosa Maria Love CHW Community Health Worker 10/06/21 [place] [address] [place] [address] Assigned Musculoskeletal Provider 10/15/21 04/26/23 Paula Reza MD INACTIVE IN [place] 02/02/2024 Assigned PCP 10/22/21 12/23/21 Keerthi Miner APRN SINGLE END SEWER [address] [place] [address] Assigned Heart and Vascular Provider 10/08/21 02/10/22 Shahida Sutton, DUANE SINGLE END SEWER Assigned PCP 12/24/21 03/24/22 Porsha Michaels APRN SINGLE END SEWER [address] [place] [address] Assigned Heart and Vascular Provider 02/11/22 05/12/22 Paula Reza MD INACTIVE IN [place] 02/02/2024 Assigned PCP 03/25/22 04/07/22 Shahida Sutton, SALES PERFORMANCE ANALYST SINGLE END SEWER [address] [place] [address] Assigned PCP 04/08/22 06/30/22 Daylin Ludwig, MIKI [facility] [address] [place] [address] Cardiac Rehabilitation Therapist 05/16/23 Laurel Velasquez MD [address] [place], [place] [address] Assigned Heart and Vascular Provider 05/13/22 06/30/22 Daylin Ludwig, MIKI [facility] [address] [place] [address] Cardiac Rehabilitation Therapist 06/08/22 06/09/23 Paula Reza MD INACTIVE IN [place] 02/02/2024 Assigned PCP 07/01/22 07/07/22 Porsha Michaels APRN SINGLE END SEWER [address] [place] [address] Assigned Heart and Vascular Provider 07/01/22 07/07/22 Laurel Velasquez MD [address] [place] [address] Assigned Heart and Vascular Provider 07/08/22 08/04/22 Shahida Sutton, DUANE SINGLE END SEWER Assigned PCP 07/08/22 09/08/22 Marilin Montaño, SINGLE END SEWER [address] [place] [address] Assigned Heart and Vascular Provider 08/05/22 02/24/24 Esha Dewitt MD [address] [address] Gastroenterology 09/06/22 Heather Mosquera MD [address] [place] [address] Internal Medicine 09/06/22 Paula Reza MD INACTIVE IN [place] 02/02/2024 Assigned PCP 09/09/22 01/05/23 Esha Dewitt MD [address] [place] [address] Assigned Gastroenterology Provider 09/23/22 04/26/24 Valdo Escamilla PA-C [address] [place] [address] Assigned Neuroscience Provider 09/30/22 04/26/24 Nohelia Abarca PA-C [address] [place] [address] Physician Shrub Planter Gastroenterology 10/03/22 Heather Mosquera MD [address] [place], [place] [address] Assigned PCP 01/06/23 Fawad York MD [address] [place], [place] [address] Assigned Musculoskeletal Provider 04/27/23 06/25/23 documented as of this encounter
--- OUTSIDE RECORDS SUMMARY | 2024-11-02 15:13 | XMS_ITS | Encounter Summary ---
Author Organization [facility] Address [address] [place] [address] Care Team Providers Care Photofinishing Laboratory Worker Name Role Phone Dixon Carson MD Primary Care Provider Unavailable Mingo Aldana MD Primary Car e Provider HermanShahida APRN ACCOUNT INSTALLATION SPECIALIST Primary Care Provi ford Unavailable Herman, Shahida Cummings APRN ACCOUNT INSTALLATION SPECIALIST Unavailable Un available Herman, Shahida Cummings APRN ACCOUNT INSTALLATION SPECIALIST Unavailable Un available Carolynn Ramon RN Unavailable [phone] Augustine Callaway MD Unavailable Brady Lion MD Unavailable Un available Nima FranceC Unavailable [phone] Camille Chandler PA-C Unavailable [phone] Anabela Barakat APRN ACCOUNT INSTALLATION SPECIALIST Unavailable Nima FranceC Unavailable [phone] Basilio Morillo DO Unavailable [phone] Fawad York MD Unavailable [phone] Ropoa Almonte MD Unavailable [phone] Augustine Callaway MD Unavailable Maryse Burton PA-C Unavailable Marquita Starkey MD Unavailable [phone] Roopa Almonte MD Unavailable [phone] Griffin Joshi MD Unavailable Rina Magallon RN Unavailable [phone] Paula Reza MD Primary Care Provider UnavailGriffin Youssef MD Unavailable Roopa Almonte MD Unavailable [phone] MarciaBasilio win Unavailable Lydia Bernstein PA-C Unavailable Rosa Maria Love Unavailable [phone] Augustine Callaway MD Unavailable Paula Reza MD Unavailable Unavailable Keerthi Miner APRN ACCOUNT INSTALLATION SPECIALIST Unavailable Herman, Shahida Cummings APRN ACCOUNT INSTALLATION SPECIALIST Unavailable Un available Porsha Michaels APRN ACCOUNT INSTALLATION SPECIALIST Unavailable [phone] Paula Reza MD Unavailable Unavailable HermanShahida huerta APRN ACCOUNT INSTALLATION SPECIALIST Unavailable Un available Daylin Ludwig Unavailable [phone] Laurel Velasquez MD Unavailable [phone] Daylin Ludwig Unavailable [phone] Paula Reza MD Unavailable Unavailable Porsha Michaels APRN ACCOUNT INSTALLATION SPECIALIST Unavailable [phone] Laurel Velasquez MD Unavailable [phone] Shahida Sutton APRN ACCOUNT INSTALLATION SPECIALIST Unavailable Un available Marilin Montaño ACCOUNT INSTALLATION SPECIALIST Unavailable Esha Dewitt MD Unavailable [phone] Heather Mosquera MD Unavailable [phone] Paula Reza MD Unavailable Unavailable Esha Dewitt MD Unavailable [phone] Valdo Escamilla PA-C Unavailable +[phone] Nohelia Abarca PA-C Unavailable [phone] Heather Mosquera MD Unavailable [phone] Fawad York MD Unavailable [phone] Reason for Visit * Reason Onset Date Comments Refill Request 09/25/2008 vicodin Encounter Details Date Type Department Care Team (Late st Contact Info) Description 09/25/2008 MyC Refill [address] [address] Dixon Carson MD XXX HOSPITALIST/ED DOCTOR XXX Refill Request (vicodin) Social History Tobacco Use [...] AM CDT Legal 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 Gender Identity Male 09/20/2020 8:37 AM CDT Sexual Orientation Straight 09/20/2020 8: 37 AM CDT documented as of this encounter Miscellaneous Notes * Telephone Encounter - Liliana Nolasco - 09/25/2008 10:05 AM CDT Last office visit: Reason for visit: e-visit for low back pain Date last filled: #[id number] (RX STATES #60/MO) NOT A PSO FRANCO Nolasco RN * Telephone Encounter - Liliana Nolasco - 09/25/2008 10:03 AM CDTMessage from [facility]: Mauro Terrell would like a refill of the following medications: HYDROCODONE-ACETAMINOPHEN 10-325 MG OR TABS [Dixon Carson MD] Preferred pharmacy: [facility] [place] Comment: Still dealing with daily debilitating headaches [...] Out COVID-19 02/15/2020 02/15/2020 02/16/2020 2:32 PM GLASS OR MIRROR INSPECTOR Rule Out COVID-19 01/05/2021 01/05/2021 01/06/2021 12:57 PM CDT ESBL 01/05/2021 01/05/2021 Rule Out COVID-19 06/30/2021 06/30/2021 07/01/2021 9:34 AM CDT Rule Out COVID-19 07/25/2021 07/25/2021 07/25/2021 8:02 PM CDT documented as of this encounter Care Teams Photofinishing Laboratory Worker Relationship Specialty Start Date End Date Dixon Carson MD PCP - General 08/10/03 07/21/09 Mingo Aldana MD PCP - General Family Practice 07/22/09 07/12/14 Shahida Sutton APRN ACCOUNT INSTALLATION SPECIALIST PCP - General Nurse Practitioner 08/17/14 08/04/21 Shahida Sutton APRN ACCOUNT INSTALLATION SPECIALIST PCP - Assigned PCP 07/12/14 05/07/18 Paula Reza MD PCP - General Internal Medicine 08/05/21 Shahida Sutton APRN ACCOUNT INSTALLATION SPECIALIST Assigned PCP 07/12/14 09/30/21 Carolynn Ramon RN Personal Advocate & Liaison (PAL) 12/17/18 08/07/21 [place] [address] [facility] [address] [place] [address] Assigned Musculoskeletal Provider 12/26/19 08/21/20 Brady Lion MD Assigned Heart and Vascular Provider 12/26/19 08/14/20 Nima France PA-C [address] [facility] [address] [place], [place] [address] Assigned Surgical Provider 05/19/20 08/21/20 Camille Chandler PA-C [address] [facility] S [facility] [address] [place] [address] Assigned Neuroscience Provider 05/19/20 09/14/20 Anabela Barakat APRN CNP [address] [place] [address] Assigned Heart and Vascular Provider 08/15/20 08/05/21 Nima France PA-C [address] [address] Assigned Musculoskeletal Provider 08/22/20 11/13/20 [place] [address] [facility] [place] [address] Assigned Musculoskeletal Provider 11/14/20 12/04/20 Fawad York MD [address] [place] [address] Assigned Musculoskeletal Provider 12/05/20 02/05/21 Roopa Almonte MD [address] [facility] [address] [place] [address] Endocrinology, Diabetes, and Metabolism 01/19/21 [place] [address] [facility] [address] [place] [address] Assigned Musculoskeletal Provider 02/06/21 09/16/21 Maryse [address] PA-C [address] [place] [address] Physician Rim Fire Priming Operator Dermatology 04/14/21 Marquita Starkey MD [address] [facility] 200 [place] [address] Internal Medicine 05/06/21 05/06/21 Roopa Almonte MD [address] [facility] 200 [place] [address] Hospitalist Endocrinology, Diabetes, and Metabolism 05/30/21 Griffin Joshi MD [address] [place] [address] Cardiovascular Disease 07/25/21 Rina Magallon, RN Lead Contact Center Consultant 07/29/21 07/11/22 Griffin Joshi MD [address] [place] [address] Assigned Heart and Vascular Provider 08/06/21 10/07/21 Roopa Almonte MD [address] [facility] [address] [place] [address] Assigned Endocrinology Provider 09/10/21 02/24/24 [place] [address] [facility] [place] [address] Assigned Musculoskeletal Provider 09/17/21 10/14/21 Lydia Bernstein PA-C [address] [place] [address] Assigned PCP 10/01/21 10/21/21 Rosa Maria Love Cristina Community Health Worker 10/06/21 [place] [address] [facility] [address] [place] [address] Assigned Musculoskeletal Provider 10/15/21 04/26/23 Paula Reza MD INACTIVE IN [place] 02/02/2024 Assigned PCP 10/22/21 12/23/21 Keerthi Miner APRN ACCOUNT INSTALLATION SPECIALIST [address] [place] [address] Assigned Heart and Vascular Provider 10/08/21 02/10/22 Shahida Sutton APRN ACCOUNT INSTALLATION SPECIALIST Assigned PCP 12/24/21 03/24/22 Porsha Michaels APRN ACCOUNT INSTALLATION SPECIALIST [address] [place] [address] Assigned Heart and Vascular Provider 02/11/22 05/12/22 Paula Reza MD [place]NACT[place] IN [place] 02/02/2024 Assigned PCP 03/25/22 04/07/22 Shahida Sutton, DUANE ACCOUNT INSTALLATION SPECIALIST [address] [place] [address] Assigned PCP 04/08/22 06/30/22 Daylin Ludwig, EP [facility] [address] [place] [address] Cardiac Rehabilitation Therapist 05/16/23 Laurel Velasquez MD [address] [place] [address] Assigned Heart and Vascular Provider 05/13/22 06/30/22 Daylin Ludwig, EP [facility] [address] [place] [address] Cardiac Rehabilitation Therapist 06/08/22 06/09/23 Paula Reza MD INACTIVE IN [place] 02/02/2024 Assigned PCP 07/01/22 07/07/22 Porsha Michaels APRN ACCOUNT INSTALLATION SPECIALIST [address] [place] [address] Assigned Heart and Vascular Provider 07/01/22 07/07/22 Laurel Velasquez MD [address] [place] [address] Assigned Heart and Vascular Provider 07/08/22 08/04/22 Shahida Sutton APRN ACCOUNT INSTALLATION SPECIALIST Assigned PCP 07/08/22 09/08/22 Marilin Montaño, ACCOUNT INSTALLATION SPECIALIST [address] [place] [address] Assigned Heart and Vascular Provider 08/05/22 02/24/24 Esha Dewitt MD 420 [facility] [address] [place] [address] Gastroenterology 09/06/22 Heather Mosquera MD [address] [place] [address] Internal Medicine 09/06/22 Paula Reza MD INACTIVE IN [place] 02/02/2024 Assigned PCP 09/09/22 01/05/23 Esha Dewitt MD [address] [address] Assigned Gastroenterology Provider 09/23/22 04/26/24 Valdo Escamilla PA-C [address] [place] [address] Assigned Neuroscience Provider 09/30/22 04/26/24 Nohelia Abarca PA-C [address] [place] [address] Physician Rim Fire Priming Operator Gastroenterology 10/03/22 Heather Mosquera MD [address] [place] [address] Assigned PCP 01/06/23 Fawad York MD [address] [place] [address] Assigned Musculoskeletal Provider 04/27/23 06/25/23 documented as of this encounter
--- OUTSIDE RECORDS SUMMARY | 2024-11-02 15:13 | XMS_ITS | Encounter Summary ---
Author Organization [facility] Address [address] [place] [address] Care Team Providers Care Administrator Of Home Health Name Role Phone Dixon Carson MD Primary Care Provider Unavailable Mingo Aldana MD Primary Car e Provider HermanShahida APRN PATTERNMAKER GRADER Primary Care Provi ford Unavailable Herman, Shahida Cummings APRN PATTERNMAKER GRADER Unavailable Un available Herman, Shahida Cummings APRN PATTERNMAKER GRADER Unavailable Un available Carolynn Ramon RN Unavailable [phone] Augustine Callaway MD Unavailable Brady Lion MD Unavailable Un available Nima FranceC Unavailable [phone] Camille Chandler PA-C Unavailable [phone] Anabela Barakat APRN PATTERNMAKER GRADER Unavailable Nima FranceC Unavailable [phone] Basilio Morillo DO Unavailable [phone] Fawad York MD Unavailable [phone] Roopa Almonte MD Unavailable [phone] Augustine Callaway MD Unavailable Maryse Burton PA-C Unavailable Marquita Starkey MD Unavailable [phone] Roopa Almonte MD Unavailable [phone] Griffin Joshi MD Unavailable Rina Mgaallon RN Unavailable [phone] Paula Reza MD Primary Care Provider UnavailGriffin Youssef MD Unavailable Roopa Almonte MD Unavailable [phone] MarciaBasilio win Unavailable Lydia Bernstein PA-C Unavailable Rosa Maria Love Unavailable [phone] Augustine Callaway MD Unavailable Paula Reza MD Unavailable Unavailable Keerthi Miner APRN PATTERNMAKER GRADER Unavailable Herman, Shahida Cummings APRN PATTERNMAKER GRADER Unavailable Un available Porsha Michaels APRN PATTERNMAKER GRADER Unavailable [phone] Paula Reza MD Unavailable Unavailable HermanShahida huerta APRN PATTERNMAKER GRADER Unavailable Un available Daylin Ludwig Unavailable [phone] Laurel Velasquez MD Unavailable [phone] Daylin Ludwig Unavailable [phone] Paula Reza MD Unavailable Unavailable Porsha Michaels APRN PATTERNMAKER GRADER Unavailable [phone] Laurel Velasquez MD Unavailable [phone] Shahida Sutton APRN PATTERNMAKER GRADER Unavailable Un available Marilin Montaño PATTERNMAKER GRADER Unavailable Esha Dewitt MD Unavailable [phone] Heather Mosquera MD Unavailable [phone] Paula Reza MD Unavailable Unavailable Esha Dewitt MD Unavailable [phone] Valdo Escamilla PA-C Unavailable [phone] Nohelia Abarca PA-C Unavailable [phone] Heather Mosquera MD Unavailable [phone] Fawad York MD Unavailable [phone] Encounter Details Date Type Department Care Team (Late st Contact Info) Description 10/14/2007 [facility] Medical Advice [address], [address] [place] [address] Dixon Carson MD XXX HOSPITALIST/ED DOCTOR XXX CHRISTOFER (Obstructive Sleep Apnea); Neck Pain Social [...] AM CDT 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 Gender Identity Male 09/20/2020 8:37 AM CDT [...] Out COVID-19 02/15/2020 02/15/2020 02/16/2020 2:32 PM BRICK WASHER Rule Out COVID-19 01/05/2021 01/05/2021 01/06/2021 12:57 PM CDT ESBL 01/05/2021 01/05/2021 Rule Out COVID-19 06/30/2021 06/30/2021 07/01/2021 9:34 AM CDT Rule Out COVID-19 07/25/2021 07/25/2021 07/25/2021 8:02 PM CDT documented as of this encounter Care Teams Administrator Of Home Health Relationship Specialty Start Date End Date Dixon Carson MD PCP - General 08/10/03 07/21/09 Mingo Aldana MD PCP - General Family Practice 07/22/09 07/12/14 Shahida Sutton APRN PATTERNMAKER GRADER PCP - General Nurse Practitioner 08/17/14 08/04/21 Shahida Sutton APRN PATTERNMAKER GRADER PCP - Assigned PCP 07/12/14 05/07/18 Paula Reza MD PCP - General Internal Medicine 08/05/21 Shahida Sutton APRN PATTERNMAKER GRADER Assigned PCP 07/12/14 09/30/21 Carolynn Ramon, KASIE Personal Advocate & Liaison (PAL) 12/17/18 08/07/21 [place] [address] [place] [address] Assigned Musculoskeletal Provider 12/26/19 08/21/20 Brady Lion MD Assigned Heart and Vascular Provider 12/26/19 08/14/20 Nima France PA-C [address] [place] [id number] Assigned Surgical Provider 05/19/20 08/21/20 Camille Chandler PA-C [address] [place] [id number] Assigned Neuroscience Provider 05/19/20 09/14/20 Anabela Barakat APRN CNP [address] [place] [address] Assigned Heart and Vascular Provider 08/15/20 08/05/21 Nima France PA-C [address] [facility] 450 [place] [address] Assigned Musculoskeletal Provider 08/22/20 11/13/20 [place] [address] [place] [address] Assigned Musculoskeletal Provider 11/14/20 12/04/20 Fawad York MD 9 [place] [address] Assigned Musculoskeletal Provider 12/05/20 02/05/21 Roopa Almonte MD [address] [facility] 200 [place] [address] Endocrinology, Diabetes, and Metabolism 01/19/21 [place] [address] [facility] 300 [place] [address] Assigned Musculoskeletal Provider 02/06/21 09/16/21 Maryse Burton PA-C [address] [place] [address] Physician Music Historian Dermatology 04/14/21 Marquita Starkey MD [address] [facility] 200 [place], [place] [address] Internal Medicine 05/06/21 05/06/21 Roopa Almonte MD [address] [place] [address] Hospitalist Endocrinology, Diabetes, and Metabolism 05/30/21 Griffin Joshi MD [address] [place] [address] Cardiovascular Disease 07/25/21 Rina Magallon, RN Lead Academic Specialist 07/29/21 07/11/22 Griffin Joshi MD [address] [place] [address] Assigned Heart and Vascular Provider 08/06/21 10/07/21 Roopa Almonte MD [address] [place], [place] [address] Assigned Endocrinology Provider 09/10/21 02/24/24 [place] [address] [facility] [place] [address] Assigned Musculoskeletal Provider 09/17/21 10/14/21 Lydia Bernstein PA-C [address] [place] [id number] Assigned PCP 10/01/21 10/21/21 Rosa Maria Love CHW Community Health Worker 10/06/21 [place] [address] [place] [address] Assigned Musculoskeletal Provider 10/15/21 04/26/23 Paula Reza MD INACTIVE IN [place] 02/02/2024 Assigned PCP 10/22/21 12/23/21 Keerthi Miner YARN FINISHER PATTERNMAKER GRADER [address] [place] [address] Assigned Heart and Vascular Provider 10/08/21 02/10/22 Shahida Sutton APRN PATTERNMAKER GRADER Assigned PCP 12/24/21 03/24/22 Porsha Michaels APRN PATTERNMAKER GRADER [address] [place] [address] Assigned Heart and Vascular Provider 02/11/22 05/12/22 Paula Reza MD INACTIVE IN [place] 02/02/2024 Assigned PCP 03/25/22 04/07/22 Shahida Sutton APRN PATTERNMAKER GRADER [address] [place] [address] Assigned PCP 04/08/22 06/30/22 Daylin Ludwig, MIKI [facility] [address] [place] [address] Cardiac Rehabilitation Therapist 05/16/23 Laurel Velasquez MD [address] [place] [address] Assigned Heart and Vascular Provider 05/13/22 06/30/22 Daylin Ludwig, MIKI [facility] [address] [place] [address] Cardiac Rehabilitation Therapist 06/08/22 06/09/23 Paula Reza MD INACTIVE IN [place] 02/02/2024 Assigned PCP 07/01/22 07/07/22 Porsha Michaels APRN PATTERNMAKER GRADER [address] [place] [address] Assigned Heart and Vascular Provider 07/01/22 07/07/22 Laurel Velasquez MD [address] [place] [address] Assigned Heart and Vascular Provider 07/08/22 08/04/22 Shahida Sutton APRN PATTERNMAKER GRADER Assigned PCP 07/08/22 09/08/22 Marilin Montaño PATTERNMAKER GRADER [address] [place] [address] Assigned Heart and Vascular Provider 08/05/22 02/24/24 Esha Dewitt MD [address] [facility] 36 [place], [place] [address] Gastroenterology 09/06/22 Heather Mosquera MD [address] [place], [place] [address] Internal Medicine 09/06/22 Paula Reza MD INACTIVE IN [place] 02/02/2024 Assigned PCP 09/09/22 01/05/23 Esha Dewitt MD [address] [facility] 36 [place] [address] Assigned Gastroenterology Provider 09/23/22 04/26/24 Valdo Escamilla PA-C [address] [place] [address] Assigned Neuroscience Provider 09/30/22 04/26/24 Nohelia Abarca PA-C [address] [place] [address] Physician Music Historian Gastroenterology 10/03/22 Heather Mosquera MD [address] [place] [address] Assigned PCP 01/06/23 Fawad York MD [address] [place] [address] Assigned Musculoskeletal Provider 04/27/23 06/25/23 documented as of this encounter
--- OUTSIDE RECORDS SUMMARY | 2024-11-02 15:13 | XMS_ITS | Encounter Summary ---
Author Organization [facility] Address [address] [place] [address] Care Team Providers Care Fact Checker Name Role Phone Dixon Carson MD Primary Care Provider Unavailable Mingo Aldana MD Primary Car e Provider HermanShahida APRN CEMETERY WARDEN Primary Care Provi ford Unavailable Herman, Shahida Cummings APRN CEMETERY WARDEN Unavailable Un available Herman, Shahida Cummings APRN CEMETERY WARDEN Unavailable Un available Carolynn Ramon RN Unavailable [phone] Augustine Callaway MD Unavailable Brady Lion MD Unavailable Un available Nima FranceC Unavailable [phone] Camille Chandler PA-C Unavailable [phone] Anabela Barakat APRN CEMETERY WARDEN Unavailable Nima FranceC Unavailable [phone] Basilio Morillo DO Unavailable [phone] Fawad York MD Unavailable [phone] Roopa Almonte MD Unavailable [phone] Augustine Callaway MD Unavailable Maryse Burton PA-C Unavailable Marquita Starkey MD Unavailable [phone] Roopa Almonte MD Unavailable [phone] Griffin Joshi MD Unavailable Rina Magallon RN Unavailable [phone] Paula Reza MD Primary Care Provider UnavailGriffin Youssef MD Unavailable Roopa Almonte MD Unavailable [phone] MarciaBasilio win Unavailable Lydia Bernstein PA-C Unavailable Rosa Maria Love Unavailable [phone] Augustine Callaway MD Unavailable Paula Reza MD Unavailable Unavailable Keerthi iMner APRN CEMETERY WARDEN Unavailable Herman, Shahida Cummings APRN CEMETERY WARDEN Unavailable Un available Porsha Michaels APRN CEMETERY WARDEN Unavailable [phone] Paula Reza MD Unavailable Unavailable HermanShahida huerta APRN CEMETERY WARDEN Unavailable Un available Daylin Ludwig Unavailable [phone] Laurel Velasquez MD Unavailable [phone] Daylin Ludwig Unavailable [phone] Paula Reza MD Unavailable Unavailable Porsha Michaels APRN CEMETERY WARDEN Unavailable [phone] Laurel Velasquez MD Unavailable [phone] Shahida Sutton APRN CEMETERY WARDEN Unavailable Un available Marilin Montaño CEMETERY WARDEN Unavailable Esha Dewitt MD Unavailable [phone] Heather Mosquera MD Unavailable [phone] Paula Reza MD Unavailable Unavailable Esha Dewitt MD Unavailable [phone] Valdo Escamilla PA-C Unavailable [phone] Nohelia Abarca PA-C Unavailable [phone] Heather Mosquera MD Unavailable [phone] Fawad oYrk MD Unavailable [phone] Encounter Details Date Type Department Care Team (Late st Contact Info) Description 04/28/2008 [facility] Social History Tobacco Use Types Packs/Day Years Used Date Smoking Tobacco: Former Cigarettes 0.5 25 1 - 12/09/2006 Pipe Cigars Comments:social smoker Alcohol Use Standard Drinks/Week Comments Yes 0 (1 standard drink = 0.6 oz pur e alcohol) 2 drinks/ week Sex and Gender Information Value Date Recorded Sex Assigned at Male 09/20/2020 8:37 AM CDT Legal Sex Male 3:40 AM PARTS 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 Gender Identity Male 09/20/2020 8:37 AM CDT Sexual Orientation Straight 09/20/2020 8: 37 AM CDT documented as of this encounter Plan of Treatment Not on file documented as of this encounter Visit Diagnoses Not on filedocumented in this encounter Additional Health Concerns Infection Onset Date Last Indicated Resolved Time Rule Out COVID-19 02/15/2020 02/15/2020 02/16/2020 2:32 PM PARTS PERSON Rule Out COVID-19 01/05/2021 01/05/2021 01/06/2021 12:57 PM CDT ESBL 01/05/2021 01/05/2021 Rule Out COVID-19 06/30/2021 06/30/2021 07/01/2021 9:34 AM CDT Rule Out COVID-19 07/25/2021 07/25/2021 07/25/2021 8:02 PM CDT documented as of this encounter Care Teams Fact Checker Relationship Specialty Start Date End Date Dixon Carson MD PCP - General 08/10/03 07/21/09 Mingo Aldana MD PCP - General Family Practice 07/22/09 07/12/14 Shahida Sutton APRN CEMETERY WARDEN PCP - General Nurse Practitioner 08/17/14 08/04/21 Shahida Sutton APRN CEMETERY WARDEN PCP - Assigned PCP 07/12/14 05/07/18 Paula Reza MD PCP - General Internal Medicine 08/05/21 Shahida Sutton APRN CEMETERY WARDEN Assigned PCP 07/12/14 09/30/21 Carolynn Ramon RN Personal Advocate & Liaison (PAL) 12/17/18 08/07/21 [place] [address] [place] [address] Assigned Musculoskeletal Provider 12/26/19 08/21/20 Brady Lion MD Assigned Heart and Vascular Provider 12/26/19 08/14/20 Nima France PA-C [address] [place] [address] Assigned Surgical Provider 05/19/20 08/21/20 Camille Chandler PA-C [address] [place] [address] Assigned Neuroscience Provider 05/19/20 09/14/20 Anabela Barakat APRN CEMETERY WARDEN [address] [place] [address] Assigned Heart and Vascular Provider 08/15/20 08/05/21 Nima France PA-C [address] [facility] 450 [place] [address] Assigned Musculoskeletal Provider 08/22/20 11/13/20 [place] [address] [facility] [place] [address] Assigned Musculoskeletal Provider 11/14/20 12/04/20 Fawad York MD [address] [place], [place] [address] Assigned Musculoskeletal Provider 12/05/20 02/05/21 Roopa Almonte MD [address] [employer] [facility] 200 [place] [address] Endocrinology, Diabetes, and Metabolism 01/19/21 [place] [address] [facility] 300 [place] [address] Assigned Musculoskeletal Provider 02/06/21 09/16/21 Maryse Burton PA-C [address] [place] [address] Physician Stone Mason Dermatology 04/14/21 Marquita Starkey MD [address] [facility] [address] [place], [place] [address] Internal Medicine 05/06/21 05/06/21 Roopa Almonte MD [address] [facility] [address] [place], [place] [address] Hospitalist Endocrinology, Diabetes, and Metabolism 05/30/21 Griffin Joshi MD [address] [facility] [address] [place] [address] Cardiovascular Disease 07/25/21 Rina Magallon, RN Lead Supervisor Calibration 07/29/21 07/11/22 Griffin Joshi MD [address] [place] [address] Assigned Heart and Vascular Provider 08/06/21 10/07/21 Roopa Almonte MD [address] [facility] [address] [place], [place] [address] Assigned Endocrinology Provider 09/10/21 02/24/24 [place] [address] [facility] [place] [address] Assigned Musculoskeletal Provider 09/17/21 10/14/21 Lydia Bernstein PA-C [address] [facility] [address] [place] [address] Assigned PCP 10/01/21 10/21/21 Rosa Maria Love CHW Community Health Worker 10/06/21 [place] [address] [facility] 300 [place] [address] Assigned Musculoskeletal Provider 10/15/21 04/26/23 Paula Reza MD INACTIVE IN [place] 02/02/2024 Assigned PCP 10/22/21 12/23/21 Keerthi Miner TUG CAPTAIN CEMETERY WARDEN [address] [place] [address] Assigned Heart and Vascular Provider 10/08/21 02/10/22 Shahida Sutton TUG CAPTAIN CEMETERY WARDEN Assigned PCP 12/24/21 03/24/22 Porsha Michaels TUG CAPTAIN CEMETERY WARDEN [address] [place] [address] Assigned Heart and Vascular Provider 02/11/22 05/12/22 Paula Reza MD INACTIVE IN [place] 02/02/2024 Assigned PCP 03/25/22 04/07/22 Shahida Sutton TUG CAPTAIN CEMETERY WARDEN [address] [place] [address] Assigned PCP 04/08/22 06/30/22 Daylin Ludwig EP [facility] [address] [place] [address] Cardiac Rehabilitation Therapist 05/16/23 Laurel Velasquez MD [address] [place] [address] Assigned Heart and Vascular Provider 05/13/22 06/30/22 Daylin Ludwig EP [facility] [address] [place] [address] Cardiac Rehabilitation Therapist 06/08/22 06/09/23 Paula Reza MD INACTIVE IN [place] 02/02/2024 Assigned PCP 07/01/22 07/07/22 Porsha Michaels APRN CEMETERY WARDEN [address] [place] [address] Assigned Heart and Vascular Provider 07/01/22 07/07/22 Laurel Velasquez MD [address] [place] [address] Assigned Heart and Vascular Provider 07/08/22 08/04/22 Shahida Sutton APRN CEMETERY WARDEN Assigned PCP 07/08/22 09/08/22 Marilin Montaño, CEMETERY WARDEN [address] [place] [address] Assigned Heart and Vascular Provider 08/05/22 02/24/24 Esha Dewitt MD 420 [facility] 36 [place], [place] [address] Gastroenterology 09/06/22 Heather Mosquera MD [address] [place] [address] Internal Medicine 09/06/22 Paula Reza MD INACTIVE IN [place] 02/02/2024 Assigned PCP 09/09/22 01/05/23 Esha Dewitt MD [address] [facility] 36 [place] [address] Assigned Gastroenterology Provider 09/23/22 04/26/24 Valdo Escamilla PA-C [address] [place] [address] Assigned Neuroscience Provider 09/30/22 04/26/24 Nohelia Abarca PA-C [address] [place] [address] Physician Stone Mason Gastroenterology 10/03/22 Heather Mosquera MD [address] [place] [address] Assigned PCP 01/06/23 Fawad York MD [address] [place] [address] Assigned Musculoskeletal Provider 04/27/23 06/25/23 documented as of this encounter
--- OUTSIDE RECORDS SUMMARY | 2024-11-02 15:13 | XMS_ITS | Encounter Summary ---
Author Organization [facility] Address [address] [place] [address] Care Team Providers Care Immunologist Name Role Phone Dixon Carson MD Primary Care Provider Unavailable Mingo Aldana MD Primary Car e Provider HermanShahida APRN ASSOCIATE FINANCIAL ADVISOR Primary Care Provi ford Unavailable Herman, Shahida Cummings APRN ASSOCIATE FINANCIAL ADVISOR Unavailable Un available Herman, Shahida Cummings APRN ASSOCIATE FINANCIAL ADVISOR Unavailable Un available Carolynn Ramon RN Unavailable [phone] Augustine Callaway MD Unavailable Brady Lion MD Unavailable Un available Nima FranceC Unavailable +[phone] Camille Chandler PA-C Unavailable [phone] Anabela Barakat APRN ASSOCIATE FINANCIAL ADVISOR Unavailable Nima FranceC Unavailable +[phone] Basilio Morillo DO Unavailable [phone] Fawad York MD Unavailable [phone] Roopa Almonte MD Unavailable [phone] Augustine Callaway MD Unavailable Maryse Burton PA-C Unavailable Marquita Starkey MD Unavailable [phone] Roopa Almonte MD Unavailable [phone] Griffin Joshi MD Unavailable Rina Magallon RN Unavailable [phone] Paula Reza MD Primary Care Provider UnavailGriffin Youssef MD Unavailable Roopa Almonte MD Unavailable [phone] MarciaBasilio win Unavailable Lydia Bernstein PA-C Unavailable Rosa Maria Love Unavailable [phone] Augustine Callaway MD Unavailable Paula Reza MD Unavailable Unavailable Keerthi Miner APRN ASSOCIATE FINANCIAL ADVISOR Unavailable Herman, Shahida Cummings APRN ASSOCIATE FINANCIAL ADVISOR Unavailable Un available Porsha Michaels APRN ASSOCIATE FINANCIAL ADVISOR Unavailable [phone] Paula Reza MD Unavailable Unavailable HermanShahida huerta APRN ASSOCIATE FINANCIAL ADVISOR Unavailable Un available Daylin Ludwig Unavailable [phone] Laurel Velasquez MD Unavailable [phone] Daylin Ludwig Unavailable [phone] Paula Reza MD Unavailable Unavailable Porsha Michaels APRN ASSOCIATE FINANCIAL ADVISOR Unavailable [phone] Laurel Velasquez MD Unavailable [phone] Shahida Sutton APRN ASSOCIATE FINANCIAL ADVISOR Unavailable Un available Marilin Montaño ASSOCIATE FINANCIAL ADVISOR Unavailable Esha Dewitt MD Unavailable [phone] Heather Mosquera MD Unavailable [phone] Paula Reza MD Unavailable Unavailable Esha Dewitt MD Unavailable [phone] Valdo Escamilla PA-C Unavailable +[phone] Nohelia Abarca PA-C Unavailable [phone] Heather Mosquera MD Unavailable [phone] Fawad York MD Unavailable [phone] Reason for Visit * Reason Onset Date Comments MyChart Communication 12/11/2007 refill req uest: krish Encounter Details Date Type Department Care Team (Late st Contact Info) Description 12/11/[address] [address] Dixon Carson MD XXX HOSPITALIST/ED DOCTOR XXX MyChart Communication (refill request: all... 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 Gender Identity Male 09/20/2020 8:37 AM CDT [...] Aldana MD] Preferred pharmacy: [facility] Comment: Resuming this per Dr Carson's instructions, need refill documented in this encounter Plan of Treatment Not on file documented as of this encounter Visit Diagnoses Diagnosis GENERALIZED ANXIETY DIS- Primary Generalized anxiety disorder documented in this encounter Additional Health Concerns Infection Onset Date Last Indicated Resolved Time Rule Out COVID-19 02/15/2020 02/15/2020 02/16/2020 2:32 PM 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 Rule Out COVID-19 01/05/2021 01/05/2021 01/06/2021 12:57 PM CDT ESBL 01/05/2021 01/05/2021 Rule Out COVID-19 06/30/2021 06/30/2021 07/01/2021 9:34 AM CDT Rule Out COVID-19 07/25/2021 07/25/2021 07/25/2021 8:02 PM CDT documented as of this encounter Care Teams Immunologist Relationship Specialty Start Date End Date Dixon Carson MD PCP - General 08/10/03 07/21/09 Mingo Aldana MD PCP - General Family Practice 07/22/09 07/12/14 Shahida Sutton APRN ASSOCIATE FINANCIAL ADVISOR PCP - General Nurse Practitioner 08/17/14 08/04/21 Shahida Sutton APRN ASSOCIATE FINANCIAL ADVISOR PCP - Assigned PCP 07/12/14 05/07/18 Paula Reza MD PCP - General Internal Medicine 08/05/21 Shahida Sutton APRN ASSOCIATE FINANCIAL ADVISOR Assigned PCP 07/12/14 09/30/21 Carolynn Ramon, RN Personal Advocate & Liaison (PAL) 12/17/18 08/07/21 [place] [address] [place] [address] Assigned Musculoskeletal Provider 12/26/19 08/21/20 Brady Lion MD Assigned Heart and Vascular Provider 12/26/19 08/14/20 Nima France PA-C [address] [facility] [address] [place], [place] [address] Assigned Surgical Provider 05/19/20 08/21/20 Camille Chandler PA-C [address] [place] [place] [place] [address] Assigned Neuroscience Provider 05/19/20 09/14/20 Anabela Barakat APRN ASSOCIATE FINANCIAL ADVISOR [address] [place] [address] Assigned Heart and Vascular Provider 08/15/20 08/05/21 Nima France PA-C [address] [facility] [address] [place] [address] Assigned Musculoskeletal Provider 08/22/20 11/13/20 [place] [address] [facility] [place] [address] Assigned Musculoskeletal Provider 11/14/20 12/04/20 Fawad York MD [address] [place] [address] Assigned Musculoskeletal Provider 12/05/20 02/05/21 Roopa Almonte MD [address] [facility] 200 [place] [address] Endocrinology, Diabetes, and Metabolism 01/19/21 [place] [address] [facility] 300 [place] [address] Assigned Musculoskeletal Provider 02/06/21 09/16/21 Maryse Burton PA-C [address] [place] [address] Physician Farm Equipment Assembler Dermatology 04/14/21 Marquita Starkey MD [address] [address] Internal Medicine 05/06/21 05/06/21 Roopa Almonte MD 303 [facility] 200 [place] [address] Hospitalist Endocrinology, Diabetes, and Metabolism 05/30/21 Griffin Joshi MD [address] [facility] [address] [facility] [place] [place] [address] Cardiovascular Disease 07/25/21 Rina Magallon, RN Lead Belt Picker 07/29/21 07/11/22 Griffin Joshi MD [address] [facility] [address] [place] [address] Assigned Heart and Vascular Provider 08/06/21 10/07/21 Roopa Almonte MD [address] [facility] 200 [place] [address] Assigned Endocrinology Provider 09/10/21 02/24/24 [place] [address] [facility] [place], [place] [address] Assigned Musculoskeletal Provider 09/17/21 10/14/21 Lydia Bernstein PA-C [address] [place] [address] Assigned PCP 10/01/21 10/21/21 Rosa Maria Love [facility] Community Health Worker 10/06/21 [place] [address] [facility] [address] [place] [address] Assigned Musculoskeletal Provider 10/15/21 04/26/23 Paula Reza MD INACTIVE IN [place] 02/02/2024 Assigned PCP 10/22/21 12/23/21 Keerthi Miner APRN ASSOCIATE FINANCIAL ADVISOR [address] [place] [address] Assigned Heart and Vascular Provider 10/08/21 02/10/22 Shahida Sutton APRN ASSOCIATE FINANCIAL ADVISOR Assigned PCP 12/24/21 03/24/22 Porsha Michaels APRN ASSOCIATE FINANCIAL ADVISOR [address] [place] [address] Assigned Heart and Vascular Provider 02/11/22 05/12/22 Paula Reza MD [place]NACTIVE IN [place] 02/02/2024 Assigned PCP 03/25/22 04/07/22 Shahida Sutton APRN ASSOCIATE FINANCIAL ADVISOR [address] [place] [address] Assigned PCP 04/08/22 06/30/22 Daylin Ludwig, MIKI [facility] [address] [place] [address] Cardiac Rehabilitation Therapist 05/16/23 Laurel Velasquez MD [address] [place] [address] Assigned Heart and Vascular Provider 05/13/22 06/30/22 Daylin Ludwig, EP [facility] [address] [place] [address] Cardiac Rehabilitation Therapist 06/08/22 06/09/23 Paula Reza MD INACTIVE IN [place] 02/02/2024 Assigned PCP 07/01/22 07/07/22 Porsha Michaels APRN ASSOCIATE FINANCIAL ADVISOR [address] [place] [address] Assigned Heart and Vascular Provider 07/01/22 07/07/22 Laurel Velasquez MD [address] [place] [address] Assigned Heart and Vascular Provider 07/08/22 08/04/22 Shahida Sutton APRN ASSOCIATE FINANCIAL ADVISOR Assigned PCP 07/08/22 09/08/22 Marilin Montaño, ASSOCIATE FINANCIAL ADVISOR [address] [place] [address] Assigned Heart and Vascular Provider 08/05/22 02/24/24 Esha Dewitt MD [address] [facility] 36 [place] [address] Gastroenterology 09/06/22 Heather Mosquera MD [address] [place] [address] Internal Medicine 09/06/22 Paula Reza MD INACTIVE IN [place] 02/02/2024 Assigned PCP 09/09/22 01/05/23 Esha Dewitt MD [address] [place] [address] Assigned Gastroenterology Provider 09/23/22 04/26/24 Valdo Escamilla PA-C [address] [place] [address] Assigned Neuroscience Provider 09/30/22 04/26/24 Nohelia Abarca PA-C [address] [place] [address] Physician Farm Equipment Assembler Gastroenterology 10/03/22 Heather Mosquera MD [address] [place] [address] Assigned PCP 01/06/23 Fawad York MD [address] [place] [address] Assigned Musculoskeletal Provider 04/27/23 06/25/23 documented as of this encounter
--- OUTSIDE RECORDS SUMMARY | 2024-11-02 15:13 | XMS_ITS | Encounter Summary ---
Author Organization [facility] Address [address] [place] [address] Care Team Providers Care Log Yard Manager Name Role Phone Dixon Carson MD Primary Care Provider Unavailable Mingo Aldana MD Primary Car e Provider HermanShahida APRN EQUIPMENT OPERATOR Primary Care Provi ford Unavailable Herman, Shahida Cummings APRN EQUIPMENT OPERATOR Unavailable Un available Herman, Shahida Cummings APRN EQUIPMENT OPERATOR Unavailable Un available Carolynn Ramon RN Unavailable [phone] Augustine Callaway MD Unavailable Brady Lion MD Unavailable Un available Nima FranceC Unavailable [phone] Camille Chandler PA-C Unavailable [phone] Anabela Barakat APRN EQUIPMENT OPERATOR Unavailable Nima FranceC Unavailable [phone] Basilio Morillo DO Unavailable [phone] Fawad York MD Unavailable [phone] Roopa Almonte MD Unavailable [phone] Augustine Callaway MD Unavailable Maryse Burton PA-C Unavailable Marquita Starkey MD Unavailable [phone] Roopa Almonte MD Unavailable [phone] Griffin Joshi MD Unavailable Rian Magallon RN Unavailable [phone] Paula Reza MD Primary Care Provider UnavailGriffin Youssef MD Unavailable Roopa Almonte MD Unavailable [phone] MarciaBasilio win Unavailable Lydia Bernstein PA-C Unavailable Rosa Maria Love Unavailable [phone] Augustine Callaway MD Unavailable Paula Reza MD Unavailable Unavailable Keerthi Miner APRN EQUIPMENT OPERATOR Unavailable Herman, Shahida Cummings APRN EQUIPMENT OPERATOR Unavailable Un available Porsha Michaels APRN EQUIPMENT OPERATOR Unavailable [phone] Paula Reza MD Unavailable Unavailable HermanShahida huerta APRN EQUIPMENT OPERATOR Unavailable Un available Daylin Ludwig Unavailable [phone] Laurel Velasquez MD Unavailable [phone] Daylin Ludwig Unavailable [phone] Paula Reza MD Unavailable Unavailable Porsha Michaels APRN EQUIPMENT OPERATOR Unavailable [phone] Laurel Velasquez MD Unavailable [phone] Shahida Sutton APRN EQUIPMENT OPERATOR Unavailable Un available Marilin Montaño EQUIPMENT OPERATOR Unavailable Esha Dewitt MD Unavailable [phone] Heather Mosquera MD Unavailable [phone] Paula Reza MD Unavailable Unavailable Esha Dewitt MD Unavailable [phone] Valdo Escamilla PA-C Unavailable [phone] Nohelia Abarca PA-C Unavailable [phone] Heather Mosquera MD Unavailable [phone] Fawad York MD Unavailable [phone] Reason for Visit * Reason Onset Date Comments Pt. Information/instruction 11/12/2008 Rece nt discussion with Dr. Walker Encounter Details Date Type Department Care Team (Late st Contact Info) Description 11/12/2008 [facility] [place] [address] [address] Dixon Carson MD XXX HOSPITALIST/ED DOCTOR XXX Pt. Information/instruct ion (Recent discus... 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 Gender Identity Male 09/20/2020 8:37 AM [...] Out COVID-19 02/15/2020 02/15/2020 02/16/2020 2:32 PM BIOLOGICAL TECHNICIAN Rule Out COVID-19 01/05/2021 01/05/2021 01/06/2021 12:57 PM CDT ESBL 01/05/2021 01/05/2021 Rule Out COVID-19 06/30/2021 06/30/2021 07/01/2021 9:34 AM CDT Rule Out COVID-19 07/25/2021 07/25/2021 07/25/2021 8:02 PM CDT documented as of this encounter Care Teams Log Yard Manager Relationship Specialty Start Date End Date Dixon Carson MD PCP - General 08/10/03 07/21/09 Mingo Aldana MD PCP - General Family Practice 07/22/09 07/12/14 Shahida Sutton APRN EQUIPMENT OPERATOR PCP - General Nurse Practitioner 08/17/14 08/04/21 Shahida Sutton APRN EQUIPMENT OPERATOR PCP - Assigned PCP 07/12/14 05/07/18 Paula Reza MD PCP - General Internal Medicine 08/05/21 Shahida Sutton APRN EQUIPMENT OPERATOR Assigned PCP 07/12/14 09/30/21 Carolynn Ramon, KASIE Personal Advocate & Liaison (PAL) 12/17/18 08/07/21 [place] [address] [place] [address] Assigned Musculoskeletal Provider 12/26/19 08/21/20 Brady Lion MD Assigned Heart and Vascular Provider 12/26/19 08/14/20 Nima France PA-C [address] [place] [address] Assigned Surgical Provider 05/19/20 08/21/20 Camille Chandler PA-C [address] [place] [address] Assigned Neuroscience Provider 05/19/20 09/14/20 Anabela Barakat APRN CNP [address] [place] [address] Assigned Heart and Vascular Provider 08/15/20 08/05/21 Nima France PA-C 6545 [facility] 450 [place] [address] Assigned Musculoskeletal Provider 08/22/20 11/13/20 [place] [address] [place] [address] Assigned Musculoskeletal Provider 11/14/20 12/04/20 Fawad York MD [address] [place], [place] [address] Assigned Musculoskeletal Provider 12/05/20 02/05/21 Roopa Almonte MD [address] [facility] 200 [place] [address] Endocrinology, Diabetes, and Metabolism 01/19/21 [place] [address] [facility] 300 [place] [address] Assigned Musculoskeletal Provider 02/06/21 09/16/21 Maryse Burton PA-C [address] [place] [address] Physician Juvenile Corrections Officer Dermatology 04/14/21 Marquita Starkey MD [address] [facility] [address] [place] [address] Internal Medicine 05/06/21 05/06/21 Roopa Almonte MD [address] [facility] [address] [place] [address] Hospitalist Endocrinology, Diabetes, and Metabolism 05/30/21 Griffin Joshi MD [address] [place], [place] [address] Cardiovascular Disease 07/25/21 Rina Magallon, RN Lead Purification Operator Helper 07/29/21 07/11/22 Griffin Joshi MD [address] [place] [address] Assigned Heart and Vascular Provider 08/06/21 10/07/21 Roopa Almonte MD [address] [place] [address] Assigned Endocrinology Provider 09/10/21 02/24/[address] [place] [address] [facility] [place] [address] Assigned Musculoskeletal Provider 09/17/21 10/14/21 Lydia Bernstein PA-C [address] [place] [address] Assigned PCP 10/01/21 10/21/21 Rosa Maria Love [facility] Community Health Worker 10/06/21 [place] [address] [place] [address] Assigned Musculoskeletal Provider 10/15/21 04/26/23 Paula Reza MD [place]NACTIVE IN [place] 02/02/2024 Assigned PCP 10/22/21 12/23/21 Keerthi Minre APRN EQUIPMENT OPERATOR [address] [place] [address] Assigned Heart and Vascular Provider 10/08/21 02/10/22 Shahida Sutton APRN EQUIPMENT OPERATOR Assigned PCP 12/24/21 03/24/22 Porsha Michaels APRN EQUIPMENT OPERATOR [address] [place] [address] Assigned Heart and Vascular Provider 02/11/22 05/12/22 Paula Reza MD [place]NACTIVE IN [place] 02/02/2024 Assigned PCP 03/25/22 04/07/22 Shahida Sutton APRN EQUIPMENT OPERATOR [address] [place] [address] Assigned PCP 04/08/22 06/30/22 Daylin Ludwig EP [facility] [address] [place] [address] Cardiac Rehabilitation Therapist 05/16/23 Laurel Velasquez MD [address] [place] [address] Assigned Heart and Vascular Provider 05/13/22 06/30/22 Daylin Ludwig EP [facility] [address] [place], [place] [address] Cardiac Rehabilitation Therapist 06/08/22 06/09/23 Paula Reza MD [place]NACTIVE IN [place] 02/02/2024 Assigned PCP 07/01/22 07/07/22 Porsha Michaels APRN EQUIPMENT OPERATOR [address] [place] [address] Assigned Heart and Vascular Provider 07/01/22 07/07/22 Laurel Velasquez MD [address] [place] [address] Assigned Heart and Vascular Provider 07/08/22 08/04/22 Shahida Sutton, ANIMAL STICKER EQUIPMENT OPERATOR Assigned PCP 07/08/22 09/08/22 Marilin Montaño, EQUIPMENT OPERATOR [address] [place] [address] Assigned Heart and Vascular Provider 08/05/22 02/24/24 Esha Dewitt MD [address] [place] [address] Gastroenterology 09/06/22 Heather Mosquera MD [address] [place] [address] Internal Medicine 09/06/22 Paula Reza MD [place]CTIVE IN [place] 02/02/2024 Assigned PCP 09/09/22 01/05/23 Esha Dewitt MD 420 [facility] 36 [place] [address] Assigned Gastroenterology Provider 09/23/22 04/26/24 Valdo Escamilla PA-C [address] [place] [address] Assigned Neuroscience Provider 09/30/22 04/26/24 Nohelia Abarca PA-C [address] [place] [address] Physician Juvenile Corrections Officer Gastroenterology 10/03/22 Heather Mosquera MD [address] [place] [address] Assigned PCP 01/06/23 Fawad York MD [address] [place], [place] [address] Assigned Musculoskeletal Provider 04/27/23 06/25/23 documented as of this encounter
--- OUTSIDE RECORDS SUMMARY | 2024-11-02 15:14 | XMS_ITS | Encounter Summary ---
Author Organization [facility] Address [address] [place] [address] Care Team Providers Care Bible Teacher Name Role Phone Shahida Sutton APRN BULK INTAKE WORKER Primary Care Provi ford Unavailable Shahida Sutton APRN BULK INTAKE WORKER Unavailable Un available Carolynn Ramon RN Unavailable [phone] Augustine Callaway MD Unavailable Brady Lion MD Unavailable Un available Nima France-C Unavailable [phone] Camille Chandler PA-C Unavailable [phone] Anabela Barakat APRN BULK INTAKE WORKER Unavailable Nima France PA-C Unavailable [phone] Basilio Morillo DO Unavailable aFwad York MD Unavailable Roopa Almonte MD Unavailable [phone] Augustine Callaway MD Unavailable Maryse Burton PA-C Unavailable [phone] Marquita Starkey MD Unavailable [phone] Roopa Almonte MD Unavailable [phone] Griffin Joshi MD Unavailable + Rina Magallon RN Unavailable [phone] Paula Reza MD Primary Care Provider UnavailGriffin Youssef MD Unavailable Roopa Almonte MD Unavailable [phone] [facility] center[facility] stiles Unavailable Lydia Bernstein-C Unavailable Rosa Maria Love Unavailable [phone] Augustine Callaway MD Unavailable Paula Reza MD Unavailable Unavailable Keerthi Miner APRN BULK INTAKE WORKER Unavailable [phone] Herman, Shahida Cummings APRN BULK INTAKE WORKER Unavailable Un available Porsha Michaels APRN BULK INTAKE WORKER Unavailable + Paula Reza MD Unavailable Unavailable Herman, Shahida Cummings APRN BULK INTAKE WORKER Unavailable Un available Daylin Ludwig Unavailable [phone] Laurel Velasquez MD Unavailable [phone] Daylin Ludwig Unavailable [phone] Paula Reza MD Unavailable Unavailable Porsha Michaels APRN BULK INTAKE WORKER Unavailable + Laurel Velasquez MD Unavailable + [phone] HermanShahida huerta APRN BULK INTAKE WORKER Unavailable Un available Marilin Montaño BULK INTAKE WORKER Unavailable [phone] Esha Dewitt MD Unavailable + [phone] Heather oMsquera MD Unavailable [phone] Paula Reza MD Unavailable Unavailable Esha Dewitt MD Unavailable [phone] Valdo Escamilla PA-C Unavailable Nohelia Abarca PA-C Unavailable [phone] Heather Mosquera MD Unavailable Fawad York MD Unavailable [phone] Encounter Details Date Type Department Care Team (Late st Contact Info) Description 03/11/2019 MyC Medical Advice [facility] Neurosurgery [facility] [address] [place] [address] [address] [id number] Aneta Roper APRN [facility] [address] [place] [address] Social History Tobacco Use Types Packs/Day Years [...] AM CDT Legal 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 Gender Identity Male 09/20/2020 8:37 AM CDT Sexual Orientation Straight 09/20/2020 8: 37 AM CDT 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 on file Not on file Not on jabier e documented as of this encounter Plan of Treatment Not on file documented as of this encounter Visit Diagnoses Not on filedocumented in this encounter Additional Health Concerns Infection Onset Date Last Indicated Resolved Time Rule Out COVID-19 02/15/2020 02/15/2020 02/16/2020 2:32 PM TOP 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 Rule Out COVID-19 01/05/2021 01/05/2021 01/06/2021 12:57 PM CDT ESBL 01/05/2021 01/05/2021 Rule Out COVID-19 06/30/2021 06/30/2021 07/01/2021 9:34 AM CDT Rule Out COVID-19 07/25/2021 07/25/2021 07/25/2021 8:02 PM CDT Assessment Noted Time PHQ-9 Depression Total Score: 6 12/21/19 18 7:06 AM CDT documented as of this encounter Care Teams Bible Teacher Relationship Specialty Start Date End Date Shahida Sutton APRN BULK INTAKE WORKER PCP - General Nurse Practitioner 08/17/14 08/04/21 Paula Reza MD PCP - General Internal Medicine 08/05/21 Shahida Sutton APRN BULK INTAKE WORKER Assigned PCP 07/12/14 09/30/21 Carolynn Ramon RN Personal Advocate & Liaison (PAL) 12/17/18 08/07/21 [place] [address] [place] [address] Assigned Musculoskeletal Provider 12/26/19 08/21/20 Brady Lion MD Assigned Heart and Vascular Provider 12/26/19 08/14/20 Nima France PA-C [address] [address] Assigned Surgical Provider 05/19/20 08/21/20 Camille Chandler PA-C [address] [facility] [address] [place] [address] Assigned Neuroscience Provider 05/19/20 09/14/20 Anabela Barakat APRN BULK INTAKE WORKER [address] [place] [address] Assigned Heart and Vascular Provider 08/15/20 08/05/21 Nima France PA-C [address] [facility] [address] [place] [address] Assigned Musculoskeletal Provider 08/22/20 11/13/20 [place] [address] [facility] [address] [address] Assigned Musculoskeletal Provider 11/14/20 12/04/20 Fawad York MD [address] [place] [address] Assigned Musculoskeletal Provider 12/05/20 02/05/21 Roopa Almonte MD [address] [facility] [address] [place] [address] Endocrinology, Diabetes, and Metabolism 01/19/21 [place] [address] [facility] [address] [place] [address] Assigned Musculoskeletal Provider 02/06/21 09/16/21 aMryse Burton, PA-C [address] [place] [address] Physician Stock Parts Inspector Dermatology 04/14/21 Marquita Starkey MD [address] [facility] [address] [place] [address] Internal Medicine 05/06/21 05/06/21 oRopa Almonte MD [address] [facility] [address] [place] [address] Hospitalist Endocrinology, Diabetes, and Metabolism 05/30/21 Griffin Joshi MD [address] [facility] [address] [address] Cardiovascular Disease 07/25/21 Rina Magallon, RN Lead Nursing Unit Clerk 07/29/21 07/11/22 Griffin Joshi MD [address] [place] [address] Assigned Heart and Vascular Provider 08/06/21 10/07/21 Roopa Almonte MD [address] [facility] [address] [place] [address] Assigned Endocrinology Provider 09/10/21 02/24/24 [place] [address] [facility] [place] [address] Assigned Musculoskeletal Provider 09/17/21 10/14/21 Lyida Bernstein PA-C [address] [facility] [address] [place] [id number] Assigned PCP 10/01/21 10/21/21 Rosa Maria Love Cristina Community Health Worker 10/06/21 07/11/22 [place] [address] [address] [facility] [address] [place], [place] [address] Assigned Musculoskeletal Provider 10/15/21 04/26/23 Paula Reza MD INACTIVE IN [place] 02/02/2024 Assigned PCP 10/22/21 12/23/21 Keerthi Miner APRN BULK INTAKE WORKER [address] [place] [address] Assigned Heart and Vascular Provider 10/08/21 02/10/22 Shahida Sutton APRN BULK INTAKE WORKER Assigned PCP 12/24/21 03/24/22 Porsha Michaels APRN BULK INTAKE WORKER [address] [place] [address] Assigned Heart and Vascular Provider 02/11/22 05/12/22 Paula Reza MD INACTIVE IN [place] 02/02/2024 Assigned PCP 03/25/22 04/07/22 Shahida Sutton APRN BULK INTAKE WORKER [address] [place] [address] Assigned PCP 04/08/22 06/30/22 Daylin Ludwig, EP [facility] [address] [place] [address] Cardiac Rehabilitation Therapist 05/16/23 Laurel Velasquez MD [address] [place] [address] Assigned Heart and Vascular Provider 05/13/22 06/30/22 Daylin Ludwig, EP [facility] [facility] [address] [place] [address] Cardiac Rehabilitation Therapist 06/08/22 06/09/23 Paula Reza MD INACTIVE IN [place] 02/02/2024 Assigned PCP 07/01/22 07/07/22 Porsha Michaels APRN BULK INTAKE WORKER [address] [place] [address] Assigned Heart and Vascular Provider 07/01/22 07/07/22 Laurel Velasquez MD [address] [place] [address] Assigned Heart and Vascular Provider 07/08/22 08/04/22 Shahida Sutton, BUSINESS DEVELOPMENT SPECIALIST BULK INTAKE WORKER Assigned PCP 07/08/22 09/08/22 Marilin Montaño, BULK INTAKE WORKER [address] [place] [address] Assigned Heart and Vascular Provider 08/05/22 02/24/24 Esha Dewitt MD [address] [facility] [address] [place] [address] Gastroenterology 09/06/22 Heather Mosquera MD [address] [place] [address] Internal Medicine 09/06/22 Paula Reza MD INACTIVE IN [place] 02/02/2024 Assigned PCP 09/09/22 01/05/23 Esha Dewitt MD [address] [facility] [address] [place] [address] Assigned Gastroenterology Provider 09/23/22 04/26/24 Valdo Escamilla PA-C [address] [place] [address] Assigned Neuroscience Provider 09/30/22 04/26/24 Nohelia Abarca PA-C [address] [address] Physician Stock Parts Inspector Gastroenterology 10/03/22 Heather Mosquera MD [address] [address] Assigned PCP 01/06/23 Fawad York MD [address] [place] [id number] Assigned Musculoskeletal Provider 04/27/23 06/25/23 documented as of this encounter
--- OUTSIDE RECORDS SUMMARY | 2024-11-02 15:14 | XMS_ITS | Clinical Summary ---
Author Organization [employer] [facility] Address [address] [place] [address] Care Team Providers Care Call Taker Name Role Phone Yash King MD Primary Care Provider [phone] Binh Kelly Unavailable [phone] [facility] [place] Unavailable Allergies Active Allergy Reactions Criticality Noted Date Comments Lamotrigine Rash 02/06/2019 Lisinopril Cough 02/06/2019 Metoclopramide Anxiety 05/18/2023 Mite Extract Runny Nose 02/20/2018 Spironolactone Dizziness 02/05/2023 Medications albuterol HFA (PRO-AIR; VENTOLIN; PROVENTIL) 90 mcg/actuation inhalerIndicatio ns:chronic obstructive pulmonary disease Inhale 2 Puffs by mouth every 4 hours if needed (SOB/cough). 1 Each 2 023 Active iSpye G7 Rn Ante Partum for continuous blood glucose monitor (CGM)Indications :Type 2 diabetes mellitus with complication, with long-term current use of insulin (HC) To be used to read blood sugars follow mud mixer helper directions. 1 Each 023 Active blood glucose control, normal soln As directed. Active esomeprazole delayed release capsule (NEXIUM) 40 mgIndications:Ga stroesophageal reflux disease, unspecified whether esophagitis present Take 1 Capsule (40 mg) by mouth once daily. 025 Active metFORMIN (GLUCOPHAGE) 1,000 mg tabletIndication s:Type 2 diabetes mellitus with hyperglycemia, with long-term current use of insulin (HC) Take 1 Tablet (1,000 mg) by mouth two times daily with meals. Do NOT take until 02/15/24. Active multivitamin (MVI) tabletIndication s:Acute congestive heart failure, unspecified heart failure type (HC) Take 1 Tablet by mouth once daily. Active nitroglycerin (NITROSTAT) 0.4 mg sublingual tabletIndication s:Acute anterior wall AR (HC) Place 1 Tablet (0.4 mg) under the tongue every 5 minutes if needed for Chest Pain. Active tiZANidine (ZANAFLEX) 4 mg tabletIndication s:Chronic pain syndrome Take 1 Tablet (4 mg) by mouth every 8 hours if needed for Muscle Spasm. And additional doses as needed Active empagliflozin (JARDIANCE) 10 mg tabletIndication s:Uncontrolled type 2 diabetes mellitus with hyperglycemia (HC) Take 1 Tablet (10 mg) by mouth once daily. Active gabapentin (NEURONTIN) 300 mg capsuleIndicatio ns:Chronic pain syndrome Take 3 Capsules (900 mg) by mouth three times daily. Active melatonin 5 mg tab tabletIndication s:Insomnia, unspecified type Take 2 Tablets (10 mg) by mouth at bedtime. Active rosuvastatin (CRESTOR) 40 mg tabletIndication s:ASHD (arterioscleroti c heart disease),Type 2 diabetes mellitus with complication, with long-term current use of insulin (HC) Take 1 Tablet (40 mg) by mouth once daily. Active insulin aspart, U-100, (NOVOLOG FLEXPEN) 100 unit/mL (3 mL) penIndications:T ype 2 diabetes mellitus with hyperglycemia, with long-term current use of insulin (HC) Inject 0-12 units subcutaneous three times daily before meals. Give subcutaneous 3 times a day with meals per blood glucose (mg/dL). Don't give corrective dose for PRN, post-prandial or nocturnal glucose checks unless ordered. Blood Glucose.....Dos e <70............ .See Hypoglycemia Protocol 70-149........N o insulin, give prandial insulin, if ordered 150-199......2 units 200-249......4 units 250-299......6 units 300-349......8 units 350-399......10 units 400 or greater....12 units & call MD 025 Active FreeStyle Rafa 3 Plus Sensor for continuous blood glucose monitor (CGM)Indications :Type 2 diabetes mellitus with complication, with long-term current use of insulin (HC) To be used to read blood sugars, change sensor every 15 days. 6 Each 3 025 Active finishing inspector (FreeStyle Rafa 3 [place]) for continuous blood glucose monitor (CGM)Indications :Type 2 diabetes mellitus with complication, with long-term current use of insulin (HC) To be used to read blood sugars follow mud mixer helper directions. 1 Each 025 Active losartan (COZAAR) 25 mg tabletIndication s:Nonrheumatic aortic valve stenosis,Heart failure with mid-range ejection fraction (HC) Take 1 Tablet (25 mg) by mouth once daily. 90 Tablet 1 025 Active hydrOXYzine HCL (ATARAX) 25 mg tablet Take 25 mg by mouth 2 times daily if needed for Anxiety or Itching. 025 Active LORazepam (ATIVAN) 0.5 mg tab Take 1 mg by mouth two times daily. 025 Active albuterol-ipratr opium (DUONEB) (2.5-0.5 mg) in 3 mL NEBULIZATION solution Inhale 1 Neb via a nebulizer 4 times daily. Active insulin glargine (U-100) (LANTUS SOLOSTAR) 100 unit/mL (3 mL) pen Inject 20 units subcutaneous two times daily. Brand: Lantus Solostar Active meclizine (ANTIVERT) 25 mg tablet Take 25 mg by mouth 3 times daily if needed for Vertigo. Active oxyCODONE-acetam inophen (7.5-325 mg) (PERCOCET) per tablet Take 1 Tablet by mouth 5 times daily. Active warfarin (COUMADIN) 5 mg tablet Take 5 mg by mouth once daily. Active furosemide (LASIX) 40 mg tabletIndication s:Acute heart failure with reduced ejection fraction (HFrEF, <= 40%) (HC) Take 3 Tablets (120 mg) by mouth two times daily. 180 Tablet 025 Active aspirin enteric coated 81 mg tabletIndication s:Acute heart failure with reduced ejection fraction (HFrEF, <= 40%) (HC),ASHD (arterioscleroti c heart disease) Take 1 Tablet (81 mg) by mouth once daily with a meal. Do not crush or chew. 30 Tablet Active carvediloL (COREG) 3.125 mg tabletIndication s:ASHD (arterioscleroti c heart disease) Take 1 Tablet (3.125 mg) by mouth two times daily with meals. 60 Tablet Active furosemide (LASIX) 40 mg tablet Take 120 mg by mouth two times daily. 025 2024 Discontinued cefuroxime axetil (CEFTIN) 500 mg tabletIndication s:Bilateral lower leg cellulitis Take 1 Tablet (500 mg) by mouth two times daily for 7 days. 14 Tablet 025 2024 aspirin enteric coated 81 mg tabletIndication s:Acute heart failure with reduced ejection fraction (HFrEF, <= 40%) (HC),ASHD (arterioscleroti c heart disease) Take 1 Tablet (81 mg) by mouth once daily with a meal. Do not crush or chew. 2024 Discontinued(* IP Discontinued) carvediloL (COREG) 3.125 mg tabletIndication s:Acute heart failure with reduced ejection fraction (HFrEF, <= 40%) (HC),ASHD (arterioscleroti c heart disease) Take 1 Tablet (3.125 mg) by mouth two times daily with meals. 025 2024 Discontinued(* IP Discontinued) Active Problems Problem Noted Date Diagnosed Date Bilateral lower leg cellulitis 10/04/2024 Venous stasis dermatitis of both lower extremiti es 10/04/2024 Nonadherence to medical treatment 10/04/2024 Overview (10/04/2024): Rationing his lasix because he couldn't get it refilled. Atrial fibrillation 10/03/2024 Acute on chronic heart failu re with reduced ejection fraction (HFrEF, <= 40%) 10/03/2024 Anticoagulation monitoring, INR range 2-3 2024 Acute on chronic systolic congestive heart failu re 04/09/2024 LV (left ventricular) thrombus 04/01/2024 Hypoxemia 03/31/2024 Leukocytosis 03/31/2024 CVA (cerebral vascular accident) 03/30/2024 History of cardiac arrest 03/30/[address] elevation myocardial infarction (S SHANIQUE) 03/30/2024 ICD (implantable cardioverter-defibrillator) in place 03/30/2024 Ischemic cardiomyopathy 02/12/2024 Coronary artery disease invo [place]ving [place] coronary artery of [place] heart without angina pectoris 04/24/2023 COPD (chronic obstructive pulmonary disease) Gastroesophageal reflux disease without esophagi tis 04/24/2023 Vertigo 04/24/2023 Dizziness 04/24/2023 Malignant neoplasm of kidney, unspecified latera lity 03/01/2023 Bicuspid aortic valve 11/09/2022 Left ventricular apical thro mbus following myocardial infarction 03/28/2021 Overview (03/28/2021): 1.5 cm apical thrombus noted on 03/28/2021 echo. Pleural effusion, bilateral 03/27/2021 Type 2 diabetes mellitus wit h hyperglycemia, with long-term current use of insulin 03/27/2021 Aortic stenosis 03/27/2021 Elevated troponin 03/27/2021 Heart failure with mid-range ejection fraction 0 03/18/2021 Opioid type dependence, continuous 03/12/2021 ASHD (arteriosclerotic heart disease) 02/06/2019 Overview (02/12/2024): - 02/06/19 STEMI: s/p DESTINY pLAD - 03/11/21 STEMI: s/p DESTINY pLAD Pure hypercholesterolemia 02/06/2019 Obstructive sleep apnea 02/06/2019 Chronic pain syndrome 02/06/2019 Primary insomnia 02/06/2019 Class 2 obesity in adult 02/06/2019 Type 2 diabetes mellitus wit h diabetic polyneuropathy, with long-term current use of insulin 02/06/2019 Vertigo 12/19/2017 Primary narcolepsy without cataplexy 07/25/2017 Moderate episode of recurrent major depressive d isorder 02/02/2017 ACP (advance care planning) 05/02/2016 Overview (03/26/2021): Advance Care Planning 05/02/2016: Receipt of ACP document: Received: invalid HCD document not dated. Document not previously scanned. Validation form completed indicating invalid document. Copy sent to client with information and facilitation resources. Validation form sent to be scanned as notation of invalid document received. Confirmed/documented designated decision maker(s). Added by Crystal Lozada RN Advance Care Planning Liaison with Pio Bhardwaj Microalbuminuria 12/20/2014 Generalized anxiety disorder 02/19/2014 Overview (03/26/2021): Diagnosis updated by automated process. Provider to review and confirm. Family history of prostate cancer 01/14/2013 Decreased cardiac ejection fraction 04/23/2012 Overview (03/26/2021): Do you wish to do the replacement in the background? yes Ophthalmic migraine 12/05/2011 HTN, goal below 140/90 01/16/2011 Fatigue 10/10/2010 Headache 04/29/2010 Overview (03/26/2021): Problem list name updated by automated process. Provider to review Hyperlipidemia LDL goal <100 01/02/2010 Low back pain 01/07/2008 Overview (03/26/2021): Diagnosis updated by automated process. Provider to review and confirm. 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 Provider to review Sinusitis, chronic 10/15/2006 Overview (03/26/2021): Problem list name updated by automated process. Provider to review Otalgia 08/19/2004 Overview (03/26/2021): Problem list name updated by automated process. Provider to review Pes planus 08/19/2004 Overview (03/26/2021): Problem list name updated by automated process. Provider to review Cervicalgia 11/24/2003 Esophageal reflux 10/06/2003 V-tach Resolved Problems Problem Noted Date Diagnosed Date Resolved Date Acute systolic congestive heart failure 03/27/2021 02/05/2023 Chest pain 03/27/2021 07/07/2021 Acute anterior wall AR 02/06/201907/[address] elevation myocardia l infarction (STEMI) 02/06/2019 07/07/2021 Overview (03/18/2021): DESTINY x1 pLAD 03/11/21 Morbid obesity 12/20/2014 02/05/2023 Pain in joint, shoulder region 05/12/2012 02/05/2023 Elbow pain 08/06/2007 02/05/2023 Acute encephalopathy 022 Hematoma of rectus sheath Cardiac arrest 11/09/2022 Encounters Date Type Department Care Team Description 10/05/2024 [facility] [address] [place] [address] Marilin Mcfarland, RN NOT TAKEN UNDER HOME CARE 10/05/2024 [facility] [address] [place] [phone] Marilin Mcfarland, RN CARE COORDINATION 10/05/2024 [facility] [address] [place] [address] Marilin Mcfarland, RN CARE COORDINATION 10/04/2024 [facility] [address] [place] [address] Marilin Mcfarland, RN CARE COORDINATION 10/04/2024 [facility] [address] [place] [address] Marilin Mcfarland, RN CARE COORDINATION 10/04/2024 [facility] [address] [place] [address] Marilin Mcfarland, RN CARE COORDINATION 10/03/2024 1:59 PM CDT - 10/04/2024 11:10 AM CDT Hospital Encounter [facility] [address] [place] [address] Marbin Lozada MD Hospitalist, [facility] Witt, Jasen Reynolds, DO Vasquez, German White NP Acute systolic congestive heart failure (HC) (Primary Dx); SOB (shortness of breath); Acute heart failure with reduced ejection fraction (HFrEF, <= 40%) (HC); Bilateral lower leg cellulitis; ASHD (arteriosclerotic heart disease) Discharge Disposition: Home Health 10/03/2024 12:35 PM CDT Office Visit [facility] [address] [place] [address] Dora Marks NP Shortness Of Breath 10/03/2024 Travel 10/01/2024 Refill [facility] [address] [place] [address] Delfina Ramos NP Refill Request (Amiodarone) 09/29/2024 Telephone [facility] [address] [facility] [address] [place] [phone] Mayank Nur MD, PhD Cardiology Appointment 09/26/2024 11:00 AM CDT Orders Only [facility] [address] [place] [address] 1 scan: (1-Ord) ECHO TTE COMPLETE WO CONTRAST ([id number]) 09/26/2024 Telephone [facility] [address] [place] [phone] Deysi Oliva MD Medication Management (Entresto) 09/26/2024 Travel 09/02/2024 Telephone [facility] [address] [place] [phone] Cardiology, Anw Cardiology Appointment 08/28/2024 Orders Only [facility] [address] [place] [phone] Deysi Oliva MD <No scans attached> 08/15/[address] [phone] Clarke Cooper MD Anticoagulation (TRANSFER OF CARE ) 08/09/[address] [phone] Clarke Cooper MD Follow Up (return call) from Last 3 Months Immunizations Immunization Administration Dates Next Due COVID-19 VACCINE SPIKEVAX (M ODERNA 50MCG/0.5ML) 12YO+ PFS 02/21/2023 Influenza A (H1N1), Inactivated 03/01/2009 Influenza RIV4 (Age 18+ Year s) PRESERV FREE 01/03/2022,01/11/2021,11/19/2017 Influenza, IIV3 (Age >=3 years) 12/25/19 09,12/25/2007,02/05/2007,2003 Influenza, IIV4 11/27/2022,,12/10/2018,2016,11/30/2014,02/04/2014 Influenza, RIV3 (Age =>9 Years) 01/14/2024 Pneumococcal Conj 20-valent (Prevnar 20) 11/27/2022 Pneumococcal conj 13-Valent (Prevnar 13) 09/01/2014 Tdap 05/25/2016,02/15/2006 Zoster (Shingrix-RZV, recombinant) 11/27/2022 Family History Medical History Relation Name Comments Heart Disease Father Heart Disease Mother Pain No Family History Relation Name Status Comments Father Mother Social History Tobacco Use Types Packs/Day Years Used Date Smoking Tobacco: Former Cigarettes 1 50.7 1 04/09/1969 - 10/03/2020 Passive Smoke Exposure: Never Smokeless Tobacco: Never Tobacco Cessation:Counseling Given: Not Answered Comments:TIP 03/30/21 Alcohol Use Standard Drinks/Week Comments Not Currently 0 (1 standard drink = 0.6 oz pur e alcohol) PHQ-2 Answer Date Recorded PHQ-2 TOTAL SCORE 4 11/09/2022 Social Connections Answer Date Recorded Do you often feel lonely or isolated from those around you? 0 10/03/2024 Financial Resource Strain Answer Date R ecorded Difficulty of Paying Living Expenses Not on file 10/03/2024 Difficulty of Paying Living Expenses 3 10/03/2024 Food Insecurity Answer Date Recorded Do you worry your food will run out before you are able to buy more? 1 10/03/2024 Transportation Needs Answer Date Record ed Does lack of transportation keep you from medica l appointments? 2 10/03/2024 Does lack of transportation keep you from work, meetings or getting things that you need? 2 10/03/2024 Housing Stability Answer Date Recorded What is your housing situation today? 1 10/03/2024 Interpersonal Safety Answer Date Record ed Are you being hit, kicked, p ushed or yelled at (see row info)? No 10/03/2024 Interpersonal Safety Abuse 12 - 18 Not on file 10/03/2024 Interpersonal Safety Ambulatory Vulnerability No t on file 10/03/2024 Utilities Answer Date Recorded Do you have trouble paying f or utilities (for example, heat, electricity, water, phone)? 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 file Not on file Obstetrics History Last Filed Vital Signs Vital Sign Reading Time Taken Comments Blood Pressure 119/80 10/04/2024 11:00 AM CDT Pulse 90 10/04/2024 11:00 AM CDT Temperature 36.8 C (98.2 F) 10/04/2024 11:00 AM CDT Respiratory Rate 22 10/04/2024 11:0 0 AM CDT Oxygen Saturation 94% 10/04/2024 11: 00 AM CDT Inhaled Oxygen Concentration - - Weight 87.5 kg (192 lb 14.4 oz) 10/04/2024 5:52 AM CDT Height 180.3 cm (5' 11) 10/03/2024 2:16 PM CDT Body Mass Index 26.9 10/03/2024 2:16 PM CDT Plan of Treatment Upcoming Encounters Date Type Department Care Team (Late st Contact Info) Description 11/24/2024 9:00 AM CDT Office Visit [facility] [address] [facility] [address] [place] [address] Mayank Nur MD, PhD [address] [facility] [address] [place] [address] Health Maintenance Due Date Last Done Comments Colonoscopy through age 75 2005 RSV vaccine for adults or (1 - Risk 60-74 years 1-dose series) 2020 Zoster (shingles) series for age 50+ (2 of 2) 01/22/2023 11/27/2022 Depression screening for age 12+ 11/10/2023 11/09/2022, 02/06/2019 COVID-19 vaccine series ( season) 2024 01/14/2024, 02/21/2023, 01/03/2022, Additional history exists Influenza Vaccine (#1) 2024 , 11/27/2022, 01/03/2022, Additional history exists Low Dose CT (for lung CA) age 50-80 04/22/2025 04/22/2024, 12/29/2022, 11/24/2022, Additional history exists BMI (ht and wt on same day) for age 18+ 06/05/2025 06/05/2024, 11/08/2023, 10/03/2023, Additional history exists Tetanus booster 05/25/2026 05/25/2016, 02/15/2006 Lipids for age 45-75 03/31/2029 03/31/2024, 12/29/2022, 03/14/2021, Additional history exists Pneumococcal series for age 50+ Completed 11/27/2022, 09/01/2014 HIV for age 15-65 Completed 02/21/2023 Hepatitis C screening for age 18-79 Completed 02/21/2023 Hepatitis B series for 19+ Aged Out N o longer eligible based on patient's age to complete this topic Procedures Procedure Name Priority Date/Time Associated Diagnosis Comments PROTIME-INR Early AM 10/04/2024 9:18 AM CDT SCAN-CARDIAC STRIP 10/04/2024 8: 16 AM CDT GLUCOSE METER Routine 10/04/2024 6:53 AM CDT GLUCOSE METER Routine 10/04/2024 5:54 AM CDT CO2,TOTAL Early AM 10/04/2024 3:57 AM CDT CREATININE Early AM 10/04/2024 3:57 AM CDT POTASSIUM Early AM 10/04/2024 3:57 AM CDT SODIUM Early AM 10/04/2024 3:57 AM CDT BUN Early AM 10/04/2024 3:57 AM CDT MAGNESIUM Timed 10/04/2024 3:57 AM CDT GLUCOSE METER Routine 10/03/2024 11:04 PM CDT SCAN-CARDIAC STRIP 10/03/2024 6: 29 PM CDT GLUCOSE METER Routine 10/03/2024 5:36 PM CDT MAGNESIUM DALILA 10/03/2024 3:57 PM CDT PROCALCITONIN Timed 10/03/2024 3:57 PM CDT BLOOD GAS,VENOUS Timed 10/03/2024 3:57 PM CDT TROPONIN T (HS) ONE TIME Timed 10/03/2024 3:57 PM CDT XR CHEST 2 VIEWS PA AND LATERAL STAT 10/03/2024 2:43 PM CDT C-REACTIVE PROTEIN DALILA 10/03/2024 2: 18 PM CDT PROTIME-INR STAT 10/03/2024 2:18 PM CDT TROPONIN T (HS) ACUTE W/2HR REFLEX STAT 10/03/2024 2:18 PM CDT PRO-BNP STAT 10/03/2024 2:18 PM CDT BASIC METABOLIC PANEL STAT 10/03/2024 2:18 PM CDT CBC W PLT NO DIFF STAT 10/03/2024 2:1 8 PM CDT EKG 12 LEAD STAT 10/03/2024 2:09 PM CDT ECHO TTE COMPLETE WO CONTRAST DALILA 09/26/2024 12:10 PM CDT Aortic stenosis CT CHEST ABDOMEN PELVIS W STAT 04/22/2024 1:55 PM EMPLOYMENT TRAINING SPECIALIST LIPID PANEL Early AM 03/31/2024 4:00 AM EMPLOYMENT TRAINING SPECIALIST ANTI HIV 1/2 Routine 02/21/2023 8:59 AM EMPLOYMENT TRAINING SPECIALIST Screening for HIV (human immunodeficiency virus) ANTI HCV Routine 02/21/2023 8:59 AM EMPLOYMENT TRAINING SPECIALIST Need for hepatitis C screening test from Last 3 Months or Most Recently Relevant to Health Maintenance Results * (ABNORMAL) PROTIME-INR (10/04/2024 9:18 AM CDT) Only the most recent of2 resultswithin the time period is included. INR 1.4(H) <1.3 10/04/2024 9:[address] [facility] PROTIME 16.2(H) 10.6 - 12.4 sec 10/04/2024 9:[address] [facility] Blood BLOOD SPECIMEN / Unknown Venipuncture / Unknown 10/04/2024 9:18 AM CDT 10/04/2024 9:28 AM CDT [facility] - 10/04/2024 9:50 AM CDT Therapeutic Range 2.0-3.0 for most anticoagulated patients 2.5-3.5 or 4.0 for high risk patients The INR is only used for patients on stable oral anticoagulant therapy. It makes no significant contribution to the diagnosis or treatment of patients whose Protime is prolonged for other reasons. INR results are increased when heparin levels exceed 1.0 U/mL, which corresponds to an aPTT >125 seconds if the patient is on UFH. us German Vasquez NP HEMATOLOGY Fin al Result [facility] [address] [place] [address] * SCAN-CARDIAC STRIP (10/04/2024 8:16 AM CDT) us Scanner OTHER Final Result * (ABNORMAL) GLUCOSE METER (10/04/2024 6:53 AM CDT) Only the most recent of4 resultswithin the time period is included. GLUCOSE METER 132(H) 65 - 100 mg/dL 10/04/2024 6:[address] [facility] Blood BLOOD SPECIMEN / Unknown 10/04/2024 6:53 AM CDT 10/04/2024 6:53 AM CDT [facility] Hospitalist CHEMISTRY Final Result Performing Organization Address [facility]/ZIP Co de Phone Number [facility] [address] [place] [address] * BUN (10/04/2024 3:57 AM CDT) BUN 16 8 - 23 mg/dL 10/04/2024 4:[address] [facility] Blood BLOOD SPECIMEN / Unknown Butterfly / Unknown 10/04/2024 3:57 AM CDT 10/04/2024 4:25 AM CDT German Vasquez PRIMER EXPEDITOR [employer] DRIER CHEMISTRY Fin al Result Performing Organization Address [facility] Co de Phone Number [facility] [address] [place] [phone] * (ABNORMAL) SODIUM (10/04/2024 3:57 AM CDT) SODIUM 134(L) 136 - 145 mmol/L 10/04/2024 4:[address] [facility] Blood BLOOD SPECIMEN / Unknown Butterfly / Unknown 10/04/2024 3:57 AM CDT 10/04/2024 4:25 AM CDT German Vasquez PRIMER EXP[employer]OR [employer] CHEMISTRY Fin al Result Performing Organization Address City/[facility]/ZIP Co de Phone Number [facility] [address] [place] [address] * POTASSIUM (10/04/2024 3:57 AM CDT) POTASSIUM 3.9 3.5 - 5.1 mmol/L 10/04/2024 4:[address] [facility] Blood BLOOD SPECIMEN / Unknown Butterfly / Unknown 10/04/2024 3:57 AM CDT 10/04/2024 4:25 AM CDT German Vasquez [employer]IMER EXP[employer]OR [employer] CHEMISTRY Fin al Result Performing Organization Address City/[facility]/ZIP Co de Phone Number [facility] [address] [place] [address] * CREATININE (10/04/2024 3:57 AM CDT) eGFR >90 >90 mL/min/1.7 3m2 10/04/2024 4:[address] [facility] Comment:As of 2021, eG FR is calculated by the CKD-EPI creatinine equation without race adjustment. eGFR can be influenced by muscle mass, exercise, and diet. The reported eGFR is an estimation only and is only applicable if the renal function is stable. CREATININE 0.86 0.70 - 1.20 mg/dL 10/04/2024 4:[address] [facility] Blood BLOOD SPECIMEN / Unknown Butterfly / Unknown 10/04/2024 3:57 AM CDT 10/04/2024 4:25 AM CDT German Vasquez PRIMER EXP[employer]OR [employer]ER CHEMISTRY Fin al Result Performing Organization Address [facility] Co de Phone Number [facility] [address] [place] [address] * CO2,TOTAL (10/04/2024 3:57 AM CDT) Pathologist [facility] CO2,TOTAL 24 22 - 29 mmol/L 10/04/2024 4:[address] [facility] Blood BLOOD SPECIMEN / Unknown Butterfly / Unknown 10/04/2024 3:57 AM CDT 10/04/2024 4:25 AM CDT German Vasquez PRIMER EXP[employer]OR [employer] CHEMISTRY Fin al Result Performing Organization Address City/[facility]/ZIP Co de Phone Number [facility] [address] [place] [address] * MAGNESIUM (10/04/2024 3:57 AM CDT) Only the most recent of2 resultswithin the time period is included. MAGNESIUM 2.1 1.6 - 2.4 mg/dL 10/04/2024 4:[address] [facility] Blood BLOOD SPECIMEN / Unknown Butterfly / Unknown 10/04/2024 3:57 AM CDT 10/04/2024 4:25 AM CDT us Christianne Brown RN CHEMISTRY Final Resul t Performing Organization Address City/[facility]/ZIP Co de Phone Number [facility] [address] [place] [address] * SCAN-CARDIAC STRIP (10/03/2024 6:29 PM CDT) us Scanner OTHER Final Result * (ABNORMAL) TROPONIN T (HS) ONE TIME (10/03/2024 3:57 PM CDT) TROPONIN T HS 33(H) 6-15 ng/L ng/L 10/03/2024 4:[address] [facility] Blood BLOOD SPECIMEN / Unknown Butterfly / Unknown 10/03/2024 3:57 PM CDT 10/03/2024 4:01 PM CDT us Marbin Lozada MD CHEMISTRY Mely l Result Performing Organization Address City/[facility]/ZIP Co de Phone Number [facility] [address] [place] [address] * PROCALCITONIN (10/03/2024 3:57 PM CDT) PROCALCITONIN 0.06 ng/ml 10/03/2024 5:[address] [facility] Blood BLOOD SPECIMEN / Unknown Butterfly / Unknown 10/03/2024 3:57 PM CDT 10/03/2024 4:[address] [facility] - 10/03/2024 5:00 PM CDT Procalcitonin for initial assessment of Lower Respiratory Tract Infection: Results Interpretation <0.10 ng/mL Antibiotic therapy strongly discoraged. Indicates absent of bacterial infection. * 0.10 - 0.25 ng/mL Antibiotic therapy discouraged. Bacterial infection unlikely. * 0.26 - 0.50 ng/mL Antibiotic therapy encouraged. Bacterial infection possible. >0.50 ng/mL Antibiotic therapy strongly encouraged. Suggestive of presence of bacterial infection. *Antibiotic therapy should be considered regardless of PCT result if the patient is clinically unstable, is at high risk for adverse outcome, has strong evidence of bacterial pathogen, or the clinical context indicates antibiotic therapy is warranted. If antibiotics are withheld, reassess if symptoms persist/worsen and/or repeat PCT measurement within 6-24 hours. In order to assess treatment success and to support a decision to discontinue antibiotic therapy, follow up samples should be tested once every 1-2 days, based upon physician discretion taking into account patient's evolution and progress. Procalcitonin for initial assessment of severe sepsis risk: Results Interpretation <0.5 ng/ml A PCT level below 0.5 ng/ml on the first day of ICU admission is associated with a low risk for progression to severe sepsis and/or septic shock. > 2.0 ng/mL A PCT level above 2.0 ng/mL on the first day of ICU admission is associated with a high risk for progression to severe sepsis and/or septic shock. Note: Concentrations < 0.5 ng/mL do not exclude an infection, on account of localized infections (without systemic signs) which can be associated with such low concentrations, or a systemic infection in its initial stages(< 6 hours). Furthermore, increased procalcitonin can occur without infection. PCT concentrations between 0.5 and 2.0 ng/mL should be interpreted taking into account the patient's history. It is recommended to retest PCT within 6-24 hours if any concentrations < 2 ng/mL are obtained. us Jasen Witt DO SEND OUTS Final Res ult [facility] [address] [place] [address] * (ABNORMAL) BLOOD GAS,VENOUS (10/03/2024 3:57 PM CDT) PH, VENOUS 7.52(H) 7.32 - 7.43 10/03/2024 4:[address] [facility] PCO2, VENOUS 33(L) 41 - 51 mmHg 10/03/2024 4:[address] [facility] PO2, VENOUS 55(H) 35 - 40 mmHg 10/03/2024 4:[address] [facility] HCO3,VENOUS 27 22 - 29 mmol/L 10/03/2024 4:[address] [facility] BASE EXCESS, VENOUS, POCT 4.3(H) -2.0 - 3.0 10/03/2024 4:[address] [facility] O2 SATURATION, VENOUS 91(H) 70 - 75 % 10/03/2024 4:[address] [facility] PATIENT TEMPERATURE 37.0 Degrees C 10/03/2024 4:[address] [facility] Blood BLOOD SPECIMEN / Unknown Butterfly / Unknown 10/03/2024 3:57 PM CDT 10/03/2024 4:00 PM CDT us Jasen Witt DO CHEMISTRY Final Res ult [facility] [address] [place], [place] [id number] * XR CHEST 2 VIEWS PA AND LATERAL (10/03/2024 2:43 PM CDT) Anatomical Region Laterality Modality CHEST, THORAX, Lung, HEART Digit al Radiography 10/03/2024 3:05 PM CDT Impressions 10/03/2024 3:05 PM CDT 1. Moderate right basilar consolidation, likely atelectasis or pneumonia with associated effusion. Recommend continued radiographic follow-up. 2. Progression of a severe lower thoracic compression fracture with near vertebra plana. Dictated by Doron Dee MD @ 10/03/2024 3:05:01 PM (Electronically Signed) Narrative 10/03/2024 3:05 PM CDT For Patients: As a result of the Cures Act, medical imaging exams and procedure reports are released immediately into your electronic medical record. You may view this report before your referring provider. If you have questions, please contact your health care provider. INDICATION: Shortness of breath. TECHNIQUE: Chest 2 views. COMPARISON: 04/02/2024. FINDINGS: Increased moderate right basilar consolidation, likely atelectasis or pneumonia with associated small effusion. Small left effusion is also noted. Coarse interstitial opacities are background be. No definite pneumothorax. Heart size and mediastinal contours are stable. Left subclavian defibrillator. Severe lower thoracic compression fracture with near vertebral plana. Previously a mild compression fracture seen CT dated 04/22/2024. Procedure Note Doron Dee MD - 10/03/2024 For Patients: As a result of the Cures Act, medical imagingexams and procedure reports are released immediately into your electronicmedical record. You may view this report before your referring provider.If you have questions, please contact your health care provider. INDICATION: Shortness of breath. TECHNIQUE: Chest 2 views. COMPARISON: 04/02/2024. FINDINGS: Increased moderate right basilar consolidation, likely atelectasis orpneumonia with associated small effusion. Small left effusion is alsonoted. Coarse interstitial opacities are background be. No definitepneumothorax. Heart size and mediastinal contours are stable. Left subclavian defibrillator. Severe lower thoracic compression fracture with near vertebral plana.Previously a mild compression fracture seen CT dated 04/22/2024. IMPRESSION: 1. Moderate right basilar consolidation, likely atelectasis or pneumoniawith associated effusion. Recommend continued radiographic follow-up. 2. Progression of a severe lower thoracic compression fracture with nearvertebra plana. Dictated by Doron Dee MD @ 10/03/2024 3:05:01 PM (Electronically Signed) us Marbin Lozada MD GENERAL IMAGING Mely l Result * (ABNORMAL) TROPONIN T (HS) ACUTE W/2HR REFLEX (10/03/2024 2:18 PM CDT) TROPONIN T HS 33(H) 6-15 ng/L ng/L 10/03/2024 2:[address] [facility] Blood BLOOD SPECIMEN / Unknown Venipuncture / Unknown 10/03/2024 2:18 PM CDT 10/03/2024 2:20 PM CDT [facility] - 10/03/2024 2:48 PM CDT hs-cTnT (Elecsys Troponin T Gen 5) concentration (s) above the sex-specific 99th percentile (16 ng/L or greater for males or 11 ng/L or greater for females) are indicative of myocardial injury. If initial hs-cTnT <=100 ng/L at presentation, a 0h/2h ABSOLUTE (ng/L) delta change (rising or falling) of >=10 ng/L suggests a significant change, whereas a 0h/2h delta change <=3 ng/L suggests no significant change. If initial hs-cTnT >100 ng/L at presentation, a 0h/2h/ RELATIVE (percent, %) delta change of 20% is suggested to distinguish patients with acute vs. chronic myocardial injury. There are multiple etiologies that can cause hs-cTnT increases above the 99th percentile (myocardial injury) other than acute myocardial infarction. Clinical context and careful clinical evaluation are critical for diagnosis and risk-stratification. The diagnosis of acute myocardial infarction requires a rising and/or falling pattern in hs-cTnT concentrations with at least one value above the sex-specific 99th percentile PLUS at least one of the following clinical criteria: ischemic symptoms, new or presumed new significant ST-T wave changes or new LBBB, development of pathological Q waves, imaging evidence of new loss of viable myocardium or new regional wall motion abnormality, or identification of intracoronary atherothrombosis or an acute angiographic culprit on coronary angiography. In appropriate low-risk patients with a non-ischemic electrocardiogram without active chest pain with a symptom onset >3-hours without recurrence, a single initial hs-cTnT<6 ng/L identifies patient with a very low risk in emergency department patient population. Marbin Lozada MD CHEMISTRY Mely l Result [facility] [address] [place], [place] [id number] * (ABNORMAL) CBC W PLT NO DIFF (10/03/2024 2:18 PM CDT) WHITE BLOOD COUNT 7.8 4.5 - 11.0 thou/cu mm 10/03/2024 2:[address] [facility] RED BLOOD COUNT 5.24 4.30 - 5.90 mil/cu mm 10/03/2024 2:[address] [facility] HEMOGLOBIN 14.4 13.5 - 17.5 g/dL 10/03/2024 2:[address] [facility] HEMATOCRIT 43.1 37.0 - 53.0 % 10/03/2024 2:[address] [facility] MCV 82 80 - 100 fL 10/03/2024 2:[address] [facility] MCH 27.5 26.0 - 34.0 pg 10/03/2024 2:[address] [facility] MCHC 33.4 32.0 - 36.0 g/dL 10/03/2024 2:[address] [facility] RDW 16.4(H) 11.5 - 15.5 % 10/03/2024 2:[address] [facility] PLATELET COUNT 329 140 - 440 thou/cu mm 10/03/2024 2:[address] [facility] MPV 9.7 6.5 - 11.0 fL 10/03/2024 2:[address] [facility] Blood BLOOD SPECIMEN / Unknown Venipuncture / Unknown 10/03/2024 2:18 PM CDT 10/03/2024 2:20 PM CDT us Marbin Lozada MD HEMATOLOGY Mely l Result [facility] [address] [place] [address] * (ABNORMAL) C-REACTIVE PROTEIN (10/03/2024 2:18 PM CDT) Pathologist [facility] [place] C-REACTIVE PROTEIN 0.7(H) <0.5 mg/dL 10/03/2024 3:[address] [facility] Blood BLOOD SPECIMEN / Unknown Venipuncture / Unknown 10/03/2024 2:18 PM CDT 10/03/2024 2:20 PM CDT Jasen Witt DO CHEMISTRY Final Res ult Performing Organization Address [facility]/ZIP Co de Phone Number [facility] [address] [place] [address] * (ABNORMAL) PRO-BNP (10/03/2024 2:18 PM CDT) [facility] PRO-BNP 11,421(H) <125 pg/mL 10/03/2024 2:[address] [facility] Blood BLOOD SPECIMEN / Unknown Venipuncture / Unknown 10/03/2024 2:18 PM CDT 10/03/2024 2:[address] [facility] - 10/03/2024 2:50 PM CDT The following cut-points have been suggested for the use of proBNP for the diagnostic evaluation of heart failure (HF) in patient with acute dyspnea. Patients with eGFR >= 60 Diagnosis (rule in CHF) <50 Years Old 450 pg/mL 50 - 75 Years Old 900 pg/mL >75 Years Old 1800 pg/mL Exclusion (rule out CHF) Age Independent 300 pg/mL A cutoff of 1200 pg/mL for patients with an eGFR <60 yields a diagnostic sensitivity of 89% and specificity of 72% for acute congestive heart failure. us Marbin Lozada MD SEND OUTS Mely l Result Performing Organization Address [facility]/ZIP Co de Phone Number [facility] [address] [place] [address] * (ABNORMAL) BASIC METABOLIC PANEL (10/03/2024 2:18 PM CDT) SODIUM 130(L) 136 - 145 mmol/L 10/03/2024 2:48 PM [facility] POTASSIUM 4.6 3.5 - 5.1 mmol/L 10/03/2024 2:48 PM [facility] CHLORIDE 95(L) 98 - 107 mmol/L 10/03/2024 2:48 PM [facility] CO2,TOTAL 23 22 - 29 mmol/L 10/03/2024 2:48 PM [facility] ANION GAP 12 5 - 18 10/03/2024 2:48 PM [facility] GLUCOSE 248(H) 70 - 99 mg/dL 10/03/2024 2:48 PM [facility] CALCIUM 9.0 8.8 - 10.4 mg/dL 10/03/2024 2:48 PM [facility] Comment: Reference ranges for this test were updated on 01/08/2024 to reflect our healthy population more accurately. Reference range changes are not retroactively applied to results, but previous results using the same methodology can be interpreted in the context of the new reference range. BUN 16 8 - 23 mg/dL 10/03/2024 2:48 PM [facility] CREATININE 0.80 0.70 - 1.20 mg/dL 10/03/2024 2:48 PM [facility] BUN/CREAT RATIO 20 10 - 20 2:48 PM [facility] eGFR >90 >90 mL/min/1. 73m2 10/03/2024 2:48 PM [facility] Comment:As of 2021, eG FR is calculated by the CKD-EPI creatinine equation without race adjustment. eGFR can be influenced by muscle mass, exercise, and diet. The reported eGFR is an estimation only and is only applicable if the renal function is stable. Blood BLOOD SPECIMEN / Unknown Venipuncture / Unknown 10/03/2024 2:18 PM CDT 10/03/2024 2:20 PM CDT Marbin Lozada MD CHEMISTRY Mely l Result Performing Organization Address City/[facility]/ZIP Co de Phone Number [facility] [address] [place] [address] * EKG 12 LEAD (10/03/2024 2:09 PM CDT) Interpretation Ventricular-pa kyle rhythm Abnormal ECG When compared with ECG of 22-Apr-2024 14:04, Vent. rate has increased by 4 bpm no significant change from 04/22/24 BEYOND NOW Ventricular Rate 100 BPM BEYOND NOW Atrial Rate 101 BPM BEYOND NOW P-R Interval ms BEYOND NOW QRS Duration 134 ms BEYOND NOW QT 414 ms BEYOND NOW QTc 534 ms BEYOND NOW P [place] 36 degrees BEYOND NOW R [place] 239 degrees BEYOND NOW T [place] 63 degrees BEYOND NOW 10/03/2024 2:09 PM CDT 10/03/2024 3:01 PM CDT [facility] [place] [facility] E[place] ORD Final Result Performing Organization Address City/[facility] Co de Phone Number BEYOND NOW [place], [place] * ECHO TTE COMPLETE WO CONTRAST (09/26/2024 12:10 PM CDT) AORTIC VALVE MEAN PG 36 mmHg EJECTION FRACTION 30 % LVEDD 5.8 cm Anatomical Region Laterality Modality Ultrasound 09/26/2024 11:0 4 AM CDT Narrative 09/26/2024 4:16 PM CDT ECHOCARDIOGRAM CHRISTIANO DURBIN : 1960 63 years Study Date: 09/26/2024 11:04:32 AM Gender: M BP: 110/50 mmHg Height: 175.00 cm BSA: 2.15 m Weight: 100.00 kg Tech: SHIRA Referring MD: DEYSI OLIVA Site: [facility] Reading Location: Mobile OP Patient Location: Outpatient. Procedure: 2D, Color Doppler and Spectral Doppler. Indication for study: Cardiac Rhythm: Irregular.Study quality: Technically limited. Imaging limitations: This study was subject to imaging limitations due to a prominent lung artifact, body habitus and No contrast at site. Final Impressions: 1. Technically limited exam. 2. Mild to moderately increased left ventricular size, mildly increased wall thickness, moderately reduced global systolic function, calculated EF of 30 %. 3. The aortic valve is sclerotic, severe stenosis and mild to moderate regurgitation. The aortic valve peak velocity is 3.7 m/s, the peak gradient is 56 mmHg, and the mean gradient is 36 mmHg. The aortic valve area is 0.87 cm with a dimensionless index of 0.22. The stroke volume index is 35.0 ml/m . 4. Mid and distal anterior septum and entire apex are abnormal. 5. Moderately enlarged left atrium. 6. Right ventricular cavity size is normal, global systolic RV function is mildly reduced. 7. The mitral valve is sclerotic, mild to moderate mitral regurgitation. 8. The inferior vena cava is dilated, respiratory size variation less than 50%. 9. Trivial pericardial effusion. Comparison Compared to prior exam images and report of 07/2023: - The left ventricular function has decreased. - Aortic stenosis has increased. Chamber Sizes and Function Mild to moderately increased left ventricular size, mildly increased wall thickness, moderately reduced global systolic function, calculated EF of 30 %. Left atrial size is moderately enlarged. Right ventricular cavity size is normal, global systolic RV function is mildly reduced. The right atrium is moderately enlarged. Right atrial area is 25 cm . The pulmonary artery is of normal size and origin. The sinus of Valsalva is normal sized. The ascending aorta is normal sized. The mid and distal anterior septum and entire apex are akinetic. Valves, RV Pressures and Diastolic Function The aortic valve is sclerotic, severe stenosis and mild to moderate regurgitation. The mitral valve is sclerotic, mild to moderate mitral regurgitation. Mitral annular calcification is present. Diastolic function assessment not performed. The tricuspid valve is normal in structure, trace tricuspid regurgitation. Unable to assess right ventricular systolic pressure. The pulmonic valve is normal. No pulmonary regurgitation. TTE images do not appear adequate for transcather intervention with patient supine. Masses, Effusion, Shunts There is trivial pericardial effusion. The inferior vena cava is dilated, respiratory size variation less than 50%. No left to right shunting was detected by limited color flow Doppler interrogation of the interatrial septum. MEASUREMENTS AND CALCULATIONS 2-D Measurements and LV Function: LVID (d) 5.8 cm Planimetered EF 30 % LVID (s) 4.8 cm LV FS% (2D) 18 % IVS (d) 1.3 cm LVOT diameter 2.2 cm LVPW (d) 1.3 cm HR 83 bpm Ao Sinus 3.8 cm LA Vol index 48 ml/m2 Ao Sinus ULN 4.2 cm * RA area 25 cm Asc Ao 3.8 cm RV Basal Diam 5.1 cm Asc Ao ULN 4.2 cm * RV Mid Diam 3.5 cm * Input BSA outside of range, reported values correspond to BSA = 2.1 Diastology: Mitral E Peak 1.5 m/s Aortic Valve: Vmax 3.7 m/s MICHAEL (V) 0.81 cm VTI 0.86 m MICHAEL (I) 0.87 cm LVOT V max 0.8 m/s Max PG 56 mmHg LVOT VTI 0.19 m Mean PG 36 mmHg SV 75 ml Dim Index 0.22 SV index 35 ml/m CO 6.2 l/min CI 2.9 l/min/m Mitral Valve: MV Mean G 2 mmHg MV VTI 0.37 m Tricuspid Valve and estimated PA pressures: TAPSE 2.1 cm . This study was interpreted by an [facility] accredited facility. Final Procedure Note Maxim Brody MD - 09/26/2024 ECHOCARDIOGRAM CHRISTIANO DURBIN : 1960 63 years Study Date: 09/26/2024 11:04:32 AM Gender: M BP: 110/50 mmHg Height: 175.00 cm BSA: 2.15 m Weight: 100.00 kg Tech: SHIRA Referring MD: DEYSI OLIVA Site: [facility] Reading Location: [place] [facility] Patient Location: Outpatient. Procedure: 2D, Color Doppler and Spectral Doppler. Indication for study: Cardiac Rhythm: Irregular.Study quality: Technically limited. Imaging limitations: This study was subject to imaging limitations due toa prominent lung artifact, body habitus and No contrast at site. Final Impressions: 1. Technically limited exam. 2. Mild to moderately increased left ventricular size, mildly increasedwall thickness, moderately reduced global systolic function, calculated EFof 30 %. 3. The aortic valve is sclerotic, severe stenosis and mild to moderateregurgitation. The aortic valve peak velocity is 3.7 m/s, the peakgradient is 56 mmHg, and the mean gradient is 36 mmHg. The aortic valvearea is 0.87 cm with a dimensionless index of 0.22. The stroke volumeindex is 35.0 ml/m . 4. Mid and distal anterior septum and entire apex are abnormal. 5. Moderately enlarged left atrium. 6. Right ventricular cavity size is normal, global systolic RV functionis mildly reduced. 7. The mitral valve is sclerotic, mild to moderate mitralregurgitation. 8. The inferior vena cava is dilated, respiratory size variation lessthan 50%. 9. Trivial pericardial effusion. Comparison Compared to prior exam images and report of 07/2023: - The left ventricular function has decreased. - Aortic stenosis has increased. Chamber Sizes and Function Mild to moderately increased left ventricular size, mildly increased wallthickness, moderately reduced global systolic function, calculated EF of30 %. Left atrial size is moderately enlarged. Right ventricular cavitysize is normal, global systolic RV function is mildly reduced. The rightatrium is moderately enlarged. Right atrial area is 25 cm . The pulmonaryartery is of normal size and origin. The sinus of Valsalva is normalsized. The ascending aorta is normal sized. The mid and distal anteriorseptum and entire apex are akinetic. Valves, RV Pressures and Diastolic Function The aortic valve is sclerotic, severe stenosis and mild to moderateregurgitation. The mitral valve is sclerotic, mild to moderate mitralregurgitation. Mitral annular calcification is present. Diastolic functionassessment not performed. The tricuspid valve is normal in structure,trace tricuspid regurgitation. Unable to assess right ventricular systolicpressure. The pulmonic valve is normal. No pulmonary regurgitation. TTEimages do not appear adequate for transcather intervention with patientsupine. Masses, Effusion, Shunts There is trivial pericardial effusion. The inferior vena cava is dilated,respiratory size variation less than 50%. No left to right shunting wasdetected by limited color flow Doppler interrogation of the interatrialseptum. MEASUREMENTS AND CALCULATIONS 2-D Measurements and LV Function: LVID (d) 5.8 cm Planimetered EF 30% LVID (s) 4.8 cm LV FS% (2D) 18% IVS (d) 1.3 cm LVOT diameter2.2 cm LVPW (d) 1.3 cm HR 83bpm Ao Sinus 3.8 cm LA Vol index 48ml/m2 Ao Sinus ULN 4.2 cm * RA area 25cm Asc Ao 3.8 cm RV Basal Diam5.1 cm Asc Ao ULN 4.2 cm * RV Mid Diam3.5 cm * Input BSA outside of range, reported values correspond to BSA = 2.1 Diastology: Mitral E Peak 1.5 m/s Aortic Valve: Vmax 3.7 m/s MICHAEL (V) 0.81 cm VTI 0.86 m MICHAEL (I) 0.87 cm LVOT V max 0.8 m/s Max PG 56 mmHg LVOT VTI 0.19 m Mean PG 36 mmHg SV 75 ml Dim Index 0.22 SV index 35 ml/m CO 6.2 l/min CI 2.9 l/min/m Mitral Valve: MV Mean G 2 mmHg MV VTI 0.37 m Tricuspid Valve and estimated PA pressures: TAPSE 2.1 cm . This study was interpreted by an [facility] accredited facility. Final [facility] Orlando Oliva MD ECHO ORD Final Result * CT CHEST ABDOMEN PELVIS W (04/22/2024 1:55 PM EMPLOYMENT TRAINING SPECIALIST) Anatomical Region Laterality Modality Abdomen, Pelvis, AORTA, LIVER, SPLEEN, CHEST Computed Tomography 04/22/2024 2:30 PM EMPLOYMENT TRAINING SPECIALIST Impressions 04/22/2024 2:30 PM EMPLOYMENT TRAINING SPECIALIST No evidence of traumatic injury in the chest, abdomen or pelvis. Large right and moderate left simple fluid pleural effusions with adjacent atelectasis. Ground-glass opacities and interlobular septal thickening throughout the lungs, likely representing moderate pulmonary edema. Increased size of the right renal mass, likely renal cell carcinoma, with increased extension of tumor into the right renal vein. No definite extension into the IVC, though evaluation is limited by contrast timing. Increased size of the right adrenal nodule, concerning for malignant involvement. Please note that all CT scans at this facility use dose modulation, iterative reconstruction, and/or weight-based dosing when appropriate to reduce radiation dose to as low as reasonably achievable. Dictated by Polina Holloway MD @ 04/22/2024 2:30:19 PM (Electronically Signed) Narrative 04/22/2024 2:30 PM EMPLOYMENT TRAINING SPECIALIST For Patients: As a result of the Cures Act, medical imaging exams and procedure reports are released immediately into your electronic medical record. You may view this report before your referring provider. If you have questions, please contact your health care provider. INDICATION: Trauma. TECHNIQUE: CT chest, abdomen and pelvis acquired with 100 cc Omnipaque 350 IV contrast. COMPARISON: CTA chest 12/29/2022, CT chest abdomen pelvis 11/24/2022 FINDINGS: CHEST: Thyroid: Unremarkable. Cardiovascular structures: Cardiomegaly. LAD stent. Left chest wall generator with leads in the right atrial appendage, right ventricle and coronary sinus. Thoracic aorta and main pulmonary artery are normal in caliber. Mediastinum and barbara: Similar mediastinal and right hilar lymphadenopathy, for example a lower paratracheal lymph node measuring 2.8 x 1.8 centimeters (75), previously 2.4 x 1.4 centimeters on 12/29/2022, and a right hilar lymph node measuring 2.8 x 1.4 centimeters, previously 2.7 x 1.2 centimeters. Lungs and pleura: Scattered ground-glass opacities, interlobular septal thickening and mild bronchial wall thickening. Upper lobe paraseptal emphysema. Large right and moderate left simple fluid pleural effusions with adjacent atelectasis. Chest wall and axilla: No mass or adenopathy. Bones: No acute fracture or dislocation. ABDOMEN AND PELVIS: Liver: Unremarkable. No sign of acute injury. Gallbladder and bile ducts: Unremarkable. Pancreas: Unremarkable. Spleen: Scattered calcified granulomas. Subcentimeter hypodense lesion in spleen is stable compared to 11/24/2022 and likely represents small hemangioma or cyst. No sign of acute injury. Adrenal glands: Increased size of right adrenal gland nodule measuring 1.5 x 1.3 centimeters (7/58), previously 1.1 x 1 centimeter. Kidneys: Increased size of the right renal mass measuring 4.3 x 5.5 x 2.9 centimeters (, 8/), previously 2.7 x 3 x 2.4 centimeters. There is extension of tumor into a segmental/lower right renal vein and minimally into the main right renal vein (). Increased dilation of the right extrarenal pelvis. Subcentimeter hypodense lesions in the left kidney, likely cyst. GI tract: No obstruction. Diverticulosis without diverticulitis. Vascular structures: Moderate aortoiliac atherosclerosis. Right renal vein description above. Mesenteric arteries are patent. Lymph nodes: Unremarkable. Miscellaneous: Small fat containing left inguinal hernia. No free air or significant free fluid. Pelvic Organs: Unremarkable. Bones: Severe degenerative disease of the lumbar spine, most severe at L2-L3 and L3-L4, increased compared to prior. There is 1 centimeter of left lateral listhesis of L2 on L3. Severe left and mild right degenerative disease of the hips. Procedure Note Polina Holloway MD - 04/22/2024 For Patients: As a result of the Cures Act, medical imagingexams and procedure reports are released immediately into your electronicmedical record. You may view this report before your referring provider.If you have questions, please contact your health care provider. INDICATION: Trauma. TECHNIQUE: CT chest, abdomen and pelvis acquired with 100 cc Omnipaque 350 IVcontrast. COMPARISON: CTA chest 12/29/2022, CT chest abdomen pelvis 11/24/2022 FINDINGS: CHEST: Thyroid: Unremarkable. Cardiovascular structures: Cardiomegaly. LAD stent. Left chest wallgenerator with leads in the right atrial appendage, right ventricle andcoronary sinus. Thoracic aorta and main pulmonary artery are normal incaliber. Mediastinum and barbara: Similar mediastinal and right hilar lymphadenopathy,for example a lower paratracheal lymph node measuring 2.8 x 1.8centimeters (), previously 2.4 x 1.4 centimeters on 12/29/2022, and aright hilar lymph node measuring 2.8 x 1.4 centimeters, previously 2.7 x1.2 centimeters. Lungs and pleura: Scattered ground-glass opacities, interlobular septalthickening and mild bronchial wall thickening. Upper lobe paraseptalemphysema. Large right and moderate left simple fluid pleural effusionswith adjacent atelectasis. Chest wall and axilla: No mass or adenopathy. Bones: No acute fracture or dislocation. ABDOMEN AND PELVIS: Liver: Unremarkable. No sign of acute injury. Gallbladder and bile ducts: Unremarkable. Pancreas: Unremarkable. Spleen: Scattered calcified granulomas. Subcentimeter hypodense lesion inspleen is stable compared to 11/24/2022 and likely represents smallhemangioma or cyst. No sign of acute injury. Adrenal glands: Increased size of right adrenal gland nodule measuring 1.5x 1.3 centimeters (), previously 1.1 x 1 centimeter. Kidneys: Increased size of the right renal mass measuring 4.3 x 5.5 x 2.9centimeters (, ), previously 2.7 x 3 x 2.4 centimeters. There isextension of tumor into a segmental/lower right renal vein and minimallyinto the main right renal vein (). Increased dilation of the rightextrarenal pelvis. Subcentimeter hypodense lesions in the left kidney,likely cyst. GI tract: No obstruction. Diverticulosis without diverticulitis. Vascular structures: Moderate aortoiliac atherosclerosis. Right renal veindescription above. Mesenteric arteries are patent. Lymph nodes: Unremarkable. Miscellaneous: Small fat containing left inguinal hernia. No free air orsignificant free fluid. Pelvic Organs: Unremarkable. 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 There is 1 centimeter ofleft lateral listhesis of L2 on L3. Severe left and mild rightdegenerative disease of the hips. IMPRESSION: No evidence of traumatic injury in the chest, abdomen or pelvis. Large right and moderate left simple fluid pleural effusions with adjacentatelectasis. Ground-glass opacities and interlobular septal thickening throughout thelungs, likely representing moderate pulmonary edema. Increased size of the right renal mass, likely renal cell carcinoma, withincreased extension of tumor into the right renal vein. No definiteextension into the IVC, though evaluation is limited by contrast timing. Increased size of the right adrenal nodule, concerning for malignantinvolvement. Please note that all CT scans at this facility use dose modulation,iterative reconstruction, and/or weight-based dosing when appropriate toreduce radiation dose to as low as reasonably achievable. Dictated by Polina Holloway MD @ 04/22/2024 2:30:19 PM (Electronically Signed) Ruben [facility] Final Result * (ABNORMAL) Lipid Panel (03/31/2024 4:00 AM [facility]) CHOLESTEROL,TOTAL 226(H) 100 - 199 mg/dL 03/31/2024 5:00 AM [facility] Comment: Cholesterol, Total Reference Ranges Desirable <200 mg/dL Borderline 200-239 mg/dL High >=240 mg/dL TRIGLYCERIDES 162(H) <150 mg/dL 03/31/2024 5:00 AM [facility] HDL CHOLESTEROL 34(L) >40 mg/dL 5:00 AM [facility] NON-HDL CHOLESTEROL 192(H) <145 mg/dl 03/31/2024 5:00 AM [facility] CHOL/HDL RATIO 6.65(H) <4.50 03/31/2024 5:00 AM [facility] LDL CHOLESTEROL 160(H) <=130 mg/dL 03/31/2024 5:00 AM [facility] VLDL CHOLESTEROL 32(H) <=30 mg/dL 03/31/2024 5:00 AM [facility] PROVIDER ORDERED STATUS RANDOM 03/31/2024 5:00 AM [facility] Blood BLOOD SPECIMEN / Unknown Venipuncture / Unknown 03/31/2024 4:00 AM EMPLOYMENT TRAINING SPECIALIST 03/31/2024 4:35 AM [facility] Danae Morgan MD CHEMISTRY Fin al Result [facility] SENDOUT INTERNAL ZIP [id number] [address] [place] [address] * ANTI HCV (02/21/2023 8:59 AM [facility]) HEPATITIS C ANTIBODY Non-Reacti ve Non-React tomer 02/21/2023 1:07 PM [facility] Comment:Please note, per www .CDC.gov: If a patient is known to be at high risk of HCV infection, or is symptomatic, and the physician's suspicion of HCV infection is high, HCV RNA testing is often employed and is of diagnostic value, even after an initial negative anti-HCV test result. Blood BLOOD SPECIMEN / Unknown Venipuncture / Unknown 02/21/2023 8:59 AM EMPLOYMENT TRAINING SPECIALIST 02/21/2023 8:59 AM EMPLOYMENT TRAINING SPECIALIST [employer] DO SEND OUTS Final Res ult Performing Organization Address [facility] Co de Phone Number [facility] [address] [address], * ANTI HIV 1/2 [50570.0] (02/21/2023 8:59 AM EMPLOYMENT TRAINING SPECIALIST) HIV-1/HIV-2 SCREEN Non-Reacti ve Non-Reacti ve 02/21/2023 1:01 PM EMPLOYMENT TRAINING SPECIALIST [facility] [employer] [facility] Comment:HIV-1 p24 and HIV-1/ HIV-2 Ab Not Detected. Blood BLOOD SPECIMEN / Unknown Venipuncture / Unknown 02/21/2023 8:59 AM EMPLOYMENT TRAINING SPECIALIST 02/21/2023 8:59 AM EMPLOYMENT TRAINING SPECIALIST [employer] DO SEND OUTS Final Res ult Performing Organization Address [facility] de Phone Number [facility] 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 Do not delete or resolve the infection flag. 07/07/2021 07/07/2021 Insurance MEDICARE PART A HB ONLY MEDICARE PART B HB ONLY MEDICARE PB ONLY [facility] Advance Directives Documents on File Type Date Recorded Patient Legal Librarian Expl anation Healthcare Directive 07/08/2021 022 * Full Code (Latest Code Status on File) Date Activated Date Inactivated Comments 10/03/2024 4:57 PM 10/04/2024 1:20 PM Question Answer Comments Code Status Discussion: Reviewed Preferences * Full Code Date Activated Date Inactivated Comments 03/30/2024 12:47 PM 04/08/2024 3:11 PM Question Answer Comments Code Status Discussion: Reviewed Preferences * Full Code Date Activated Date Inactivated Comments 02/12/2024 9:34 AM 02/13/2024 4:02 PM Question Answer Comments Code Status Discussion: Reviewed Preferences * Full Code Date Activated Date Inactivated Comments 04/24/2023 2:28 PM 04/25/2023 9:04 PM Question Answer Comments Code Status Discussion: Reviewed Preferences * Full Code Date Activated Date Inactivated Comments 07/07/2021 2:26 PM 07/09/2021 2:37 PM Question Answer Comments Code Status Discussion: Reviewed Preferences Care Teams Call Taker Relationship Specialty Start Date End Date Yash King MD [address] [place] [address] PCP - General Internal Medicine 04/27/23 Binh Kelly COTA [address] [place] [address] Occupational Therapy 04/09/24 [facility] [place] [address] [place] [address] 10/04/24
--- OUTSIDE RECORDS SUMMARY | 2024-11-02 15:14 | XMS_ITS | Encounter Summary ---
Author Organization [place] Address [address] [place] [address] Care Team Providers Care Supervisor Sterile Processing Name Role Phone Roopa Almonte MD Unavailable [phone] Maryse Burton PA-C Unavailable [phone] Roopa Almonte MD Unavailable [phone] Griffin Joshi MD Unavailable Paula Reza MD Primary Care Provider Unavailabl e Roopa Almonte MD Unavailable [phone] Augustine Callaway MD Unavailable Daylin Ludwig Unavailable [phone] Daylin Ludwig Unavailable [phone] Marilin Montaño TELECOMMUNICATION EQUIPMENT REPAIRER Unavailable [phone] Esha Dewitt MD Unavailable [phone] Heather Mosquera MD Unavailable [phone] Paula Reza MD Unavailable Unavailable Esha Dewitt MD Unavailable [phone] Valdo Escamilla-C Unavailable [phone] Nohelia AbarcaC Unavailable [phone] Heather Mosquera MD Unavailable Fawad York MD Unavailable Encounter Details Date Type Department Care Team (Late st Contact Info) Description 10/04/2022 MyC Medical Advice [facility] [address] 4[address] [place] [address] Jennifer Mast MA Social History [...] AM CDT Legal Sex Male 3:40 AM CLEAT BLANKER Gender Identity Male 09/20/2020 8:37 AM CDT Sexual Orientation Straight 09/20/2020 8: 37 AM CDT 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 Not on file [...] to Optimize Self-Care Behaviors 90%(03/23/19 3:12 PM CLEAT BLANKER) Angelita Diaz RD Note: I will check my blood sugars 3x per day at meal times Taking Medication - patient is consistently taking medications as directed Care Plan Diabetes Self-Management Education Needed to Optimize Self-Care Behaviors Angleita Diaz RD Note: Reviewed importance of following [...] as of this encounter Care Teams Supervisor Sterile Processing Relationship Specialty Start Date End Date Paula Reza MD [address] [facility] [address] [place] [address] PCP - General Internal Medicine 08/05/21 Roopa Almonte MD [address] [facility] [address] [place] [address] Endocrinology, Diabetes, and Metabolism 01/19/21 Maryse Burton PA-C [address] [place] [address] Physician Electrical Maintenance Mechanic Dermatology 04/14/21 Roopa Almonet MD [address] [facility] [address] [place] [address] Hospitalist Endocrinology, Diabetes, and Metabolism 05/30/21 Griffin Joshi MD [address] [facility] [address] [place] [address] Cardiovascular Disease 07/25/21 Roopa Almonte MD [address] [facility] [address] [place], [place] [address] Assigned Endocrinology Provider 09/10/21 02/24/24 [place] [address] [facility] [address] [place] [address] Assigned Musculoskeletal Provider 10/15/21 04/26/23 Daylin Ludwig EP [facility] [address] [address] Cardiac Rehabilitation Therapist 05/16/23 Daylin Ludwig EP [facility] [address] [place] [address] Cardiac Rehabilitation Therapist 06/08/22 06/09/23 Marilin Montaño, TELECOMMUNICATION EQUIPMENT REPAIRER [address] [place] [address] Assigned Heart and Vascular Provider 08/05/22 02/24/24 Esha Dewitt MD [address] [address] Gastroenterology 09/06/22 Heather Mosquera MD [address] [place] [address] Internal Medicine 09/06/22 Paula Reza MD [place]IVE IN [place] 02/02/2024 Assigned PCP 09/09/22 01/05/23 Esha Dewitt MD [address] [place] [address] Assigned Gastroenterology Provider 09/23/22 04/26/24 Valdo Escamilla PA-C [address] [place] [address] Assigned Neuroscience Provider 09/30/22 04/26/24 Nohelia Abarca PA-C [address] [place] [id number] Physician Electrical Maintenance Mechanic Gastroenterology 10/03/22 Heather Mosquera MD [address] [address] Assigned PCP 01/06/23 Fawad York MD [address] [place] [address] Assigned Musculoskeletal Provider 04/27/23 06/25/23 documented as of this encounter
--- OUTSIDE RECORDS SUMMARY | 2024-11-02 15:14 | XMS_ITS | Encounter Summary ---
Author Organization [place] Address [address] [place] [address] Care Team Providers Care Incident Commander Name Role Phone Roopa Almonte MD Unavailable [phone] Maryse Burton PA-C Unavailable [phone] Roopa Almonte MD Unavailable [phone] Griffin Joshi MD Unavailable Paula Reza MD Primary Care Provider Unavailabl e Roopa Almonte MD Unavailable [phone] Augustine Callaway MD Unavailable Daylin Ludwig Unavailable [phone] Daylin Ludwig Unavailable [phone] Marilin Montaño LACTATION SPECIALIST Unavailable [phone] Esha Dewitt MD Unavailable [phone] Heather Mosquera MD Unavailable [phone] Paula Reza MD Unavailable Unavailable Esha Dewitt MD Unavailable [phone] Valdo Escamilla-C Unavailable [phone] Nohelia AbarcaC Unavailable [phone] Heather Mosquera MD Unavailable Fawad York MD Unavailable [phone] Encounter Details Date Type Department Care Team (Late st Contact Info) Description 10/13/2022 MyC Medical Advice [facility] [place] [address] [address] Yareli Flynn CMA Social History Tobacco [...] CDT Legal 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 SCREW Gender Identity Male 09/20/2020 8:37 AM CDT Sexual Orientation Straight 09/20/2020 8: 37 AM CDT 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 Not on [...] Optimize Self-Care Behaviors 90%(03/23/19 23 3:12 PM TOP SCREW) Angelita Diaz RD Note: I will check [...] documented as of this encounter Care Teams Incident Commander Relationship Specialty Start Date End Date Paula Reza MD [address] [facility] [address] [place] [address] PCP - General Internal Medicine 08/05/21 Roopa Almonte MD [address] [address] Endocrinology, Diabetes, and Metabolism 01/19/21 Maryse Burton, PA-C [address] [place] [address] Physician Shipfitters Supervisor Dermatology 04/14/21 Roopa Almonte MD [address] [address] Hospitalist Endocrinology, Diabetes, and Metabolism 05/30/21 Griffin Joshi MD [address] [facility] [address] [place] [address] Cardiovascular Disease 07/25/21 Roopa Almonte MD [address] [place] [address] 200 [place], [place] [address] Assigned Endocrinology Provider 09/10/21 02/24/24 [place] [address] [facility] [address] [place] [address] Assigned Musculoskeletal Provider 10/15/21 04/26/23 Daylin Ludwig EP [facility] [address] [address] Cardiac Rehabilitation Therapist 05/16/23 Daylin Ludwig [facility] [address] [place] [address] Cardiac Rehabilitation Therapist 06/08/22 06/09/23 Marilin Montaño LACTATION SPECIALIST [address] [place] [address] Assigned Heart and Vascular Provider 08/05/22 02/24/24 Esha Dewitt MD [address] [address] Gastroenterology 09/06/22 Heather Mosquera MD [address] [place] [address] Internal Medicine 09/06/22 Paula Reza MD [place]IVE IN [place] 02/02/2024 Assigned PCP 09/09/22 01/05/23 Esha Dewitt MD [address] [place] [address] Assigned Gastroenterology Provider 09/23/22 04/26/24 Valdo Escamilla PA-C [address] [place] [address] Assigned Neuroscience Provider 09/30/22 04/26/24 Nohelia Abarca PA-C [address] [place] [id number] Physician Shipfitters Supervisor Gastroenterology 10/03/22 Heather Mosquera MD [address] [address] Assigned PCP 01/06/23 Fawad York MD [address] [place] [address] Assigned Musculoskeletal Provider 04/27/23 06/25/23 documented as of this encounter
--- OUTSIDE RECORDS SUMMARY | 2024-11-02 15:14 | XMS_ITS | Encounter Summary ---
Author Organization [place] Address [address] [place] [address] Care Team Providers Care Denture Finisher Name Role Phone Roopa Almonte MD Unavailable [phone] Maryse Burton PA-C Unavailable [phone] Roopa Almonte MD Unavailable [phone] Griffin Joshi MD Unavailable Paula Reza MD Primary Care Provider Unavailabl e Roopa Almonte MD Unavailable [phone] Augustine Callaway MD Unavailable Daylin Ludwig Unavailable [phone] Daylin Ludwig Unavailable [phone] Marilin Montaño MANAGING MEMBER Unavailable [phone] Esha Dewitt MD Unavailable [phone] Heather Mosquera MD Unavailable [phone] Paula Reza MD Unavailable Unavailable Esha Dewitt MD Unavailable [phone] Valdo Escamilla-C Unavailable [phone] Nohelia AbarcaC Unavailable [phone] Heather Mosquera MD Unavailable Fawad York MD Unavailable Encounter Details Date Type Department Care Team (Late st Contact Info) Description 10/03/2022 MyC Medical Advice [facility] [address] 4th [place] [phone] Paz Zavala, RN Social History Tobacco Use [...] AM CDT Legal Sex Male 3:40 AM HR OPERATIONS ADVISOR Gender Identity Male 09/20/2020 8:37 AM CDT Sexual Orientation Straight 09/20/2020 8: 37 AM CDT 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 on file [...] Optimize Self-Care Behaviors 90%(03/23/19 23 3:12 PM HR OPERATIONS ADVISOR) Angelita Diaz RD Note: I will [...] documented as of this encounter Care Teams Denture Finisher Relationship Specialty Start Date End Date Paula Reza MD [address] [facility] [address] [place] [address] PCP - General Internal Medicine 08/05/21 Roopa Almonte MD [address] [facility] [address] [place] [address] Endocrinology, Diabetes, and Metabolism 01/19/21 Maryse Burton, TRACEY [address] [place] [address] Physician Green Marketing Analyst Dermatology 04/14/21 Roopa Almonte MD [address] [address] Hospitalist Endocrinology, Diabetes, and Metabolism 05/30/21 Griffin Joshi MD [address] [facility] [place] [address] Cardiovascular Disease 07/25/21 Ropoa Almonte MD [address] [facility] [address] [place], [place] [address] Assigned Endocrinology Provider 09/10/21 02/24/24 [place] [address] [facility] [address] [place] [address] Assigned Musculoskeletal Provider 10/15/21 04/26/23 Daylin Ludwig EP [facility] [address] [address] Cardiac Rehabilitation Therapist 05/16/23 Daylin Ludwig EP [facility] [address] [place] [address] Cardiac Rehabilitation Therapist 06/08/22 06/09/23 Marilin Montaño, MANAGING MEMBER [address] [place] [address] Assigned Heart and Vascular Provider 08/05/22 02/24/24 Esha Dewitt MD [address] [address] Gastroenterology 09/06/22 Heather Mosquera MD [address] [place] [address] Internal Medicine 09/06/22 Paula Reza MD INACTIVE IN CT 02/02/2024 Assigned PCP 09/09/22 01/05/23 Esha Dewitt MD [address] [place] [address] Assigned Gastroenterology Provider 09/23/22 04/26/24 Valdo Escamilla PA-C [address] [place] [address] Assigned Neuroscience Provider 09/30/22 04/26/24 Nohelia Abarca PA-C [address] [place] [address] [id number] Physician Green Marketing Analyst Gastroenterology 10/03/22 Heather Mosquera MD [address] [address] Assigned PCP 01/06/23 Fawad York MD [address] [place] [address] Assigned Musculoskeletal Provider 04/27/23 06/25/23 documented as of this encounter
--- OUTSIDE RECORDS SUMMARY | 2024-11-02 15:14 | XMS_ITS | Encounter Summary ---
Author Organization [facility] Address [address] [place] [address] Care Team Providers Care Soft Sugar Cutter Name Role Phone Shahida Sutton APRN TURKEY EGG GATHERER Primary Care Provi ford Unavailable Shahida Sutton APRN TURKEY EGG GATHERER Unavailable Un available Carolynn Ramon RN Unavailable [phone] Augustine Callaway MD Unavailable Brady Lion MD Unavailable Un available Nima France-C Unavailable [phone] Camille Chandler PA-C Unavailable [phone] Anabela Barakat APRN TURKEY EGG GATHERER Unavailable Nima France PA-C Unavailable [phone] Basilio Morillo DO Unavailable Fawad York MD Unavailable Roopa Almonte MD Unavailable Augustine Callaway MD Unavailable Maryse Burton PA-C Unavailable [phone] Marquita Starkey MD Unavailable [phone] Roopa Almonte MD Unavailable [phone] Griffin Joshi MD Unavailable + Rina Magallon RN Unavailable [phone] Paula Reza MD Primary Care Provider UnavailGriffin Youssef MD Unavailable Roopa Almonte MD Unavailable [phone] [facility]ilio stiles Unavailable Lydia Bernstein-C Unavailable Rosa Maria Love Unavailable [phone] Augustine Callaway MD Unavailable Paula Reza MD Unavailable Unavailable Keerthi Miner APRN TURKEY EGG GATHERER Unavailable [phone] Herman, Shahida Cummings APRN TURKEY EGG GATHERER Unavailable Un available Porsha Michaels APRN TURKEY EGG GATHERER Unavailable + Paula Reza MD Unavailable Unavailable Herman, Shahida Cummings APRN TURKEY EGG GATHERER Unavailable Un available Daylin Ludwig Unavailable [phone] Laurel Velasquez MD Unavailable [phone] Daylin Ludwig Unavailable [phone] Paula Reza MD Unavailable Unavailable Porsha Michaels APRN TURKEY EGG GATHERER Unavailable + Laurel Velasquez MD Unavailable + [phone] HermanShahida huerta APRN TURKEY EGG GATHERER Unavailable Un available Marilin Montaño TURKEY EGG GATHERER Unavailable [phone] Esha Dewitt MD Unavailable + [phone] Heather Mosquera MD Unavailable [phone] Paula Reza MD Unavailable Unavailable Esha Dewitt MD Unavailable [phone] Valdo Escamilla PA-C Unavailable Nohelia Abarca PA-C Unavailable [phone] Heather Mosquera MD Unavailable Fawad York MD Unavailable Encounter Details Date Type Department Care Team (Late st Contact Info) Description 05/06/2019 MyC Medical Advice [address] [address] Carolynn Ramon, KASIE Social History Tobacco Use [...] AM CDT Legal Sex 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 Gender Identity Male 09/20/2020 8:37 AM CDT Sexual Orientation Straight 09/20/2020 8: 37 AM CDT 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 Not on file Not on jabier e documented as of this encounter Plan of Treatment Not on file documented as of this encounter Visit Diagnoses Not on filedocumented in this encounter Additional Health Concerns Infection Onset Date Last Indicated Resolved Time Rule Out COVID-19 02/15/2020 02/15/2020 02/16/2020 2:32 PM HULL AND DECK REMOVER Rule Out COVID-19 01/05/2021 01/05/2021 01/06/2021 12:57 PM CDT ESBL 01/05/2021 01/05/2021 Rule Out COVID-19 06/30/2021 06/30/2021 07/01/2021 9:34 AM CDT Rule Out COVID-19 07/25/2021 07/25/2021 07/25/2021 8:02 PM CDT Assessment Noted Time PHQ-9 Depression Total Score: 6 12/21/19 18 7:06 AM CDT documented as of this encounter Care Teams Soft Sugar Cutter Relationship Specialty Start Date End Date Shahida Sutton APRN TURKEY EGG GATHERER PCP - General Nurse Practitioner 08/17/14 08/04/21 Paula Reza MD PCP - General Internal Medicine 08/05/21 Shahida Sutton APRN TURKEY EGG GATHERER Assigned PCP 07/12/14 09/30/21 Carolynn Ramon RN Personal Advocate & Liaison (PAL) 12/17/18 08/07/21 [place] [address] [place] [address] Assigned Musculoskeletal Provider 12/26/19 08/21/20 Brady Lion MD Assigned Heart and Vascular Provider 12/26/19 08/14/20 Nima France PA-C [address] [place] [address] Assigned Surgical Provider 05/19/20 08/21/20 Camille Chandler PA-C [address] [facility] [address] [place] [address] Assigned Neuroscience Provider 05/19/20 09/14/20 Anabela Barakat APRN TURKEY EGG GATHERER [address] [place] [address] Assigned Heart and Vascular Provider 08/15/20 08/05/21 Nima France PA-C [address] [place] [address] Assigned Musculoskeletal Provider 08/22/20 11/13/20 [place] [address] [facility] [place] [address] Assigned Musculoskeletal Provider 11/14/20 12/04/20 Fawad York MD [address] [facility] [place], [place] [address] Assigned Musculoskeletal Provider 12/05/20 02/05/21 Roopa Almonte MD [address] [facility] [address] [place] [address] Endocrinology, Diabetes, and Metabolism 01/19/21 [place] [address] [facility] [address] [place] [address] Assigned Musculoskeletal Provider 02/06/21 09/16/21 Maryse Burton, PA-C [address] [place] [address] Physician Publications Writer Dermatology 04/14/21 Marquita Starkey MD [address] [facility] 200 [place], [place] [address] Internal Medicine 05/06/21 05/06/21 Roopa Almonte MD [address] [facility] [address] [place], [place] [address] Hospitalist Endocrinology, Diabetes, and Metabolism 05/30/21 Griffin Joshi MD [address] [facility] [address] [place] [address] Cardiovascular Disease 07/25/21 Rina Magallon, RN Lead House Officer 07/29/21 07/11/22 Griffin Joshi MD [address] [place] [address] Assigned Heart and Vascular Provider 08/06/21 10/07/21 Roopa Almonte MD [address] [facility] 200 [place] [address] Assigned Endocrinology Provider 09/10/21 02/24/24 [place] [address] [facility] [place] [address] Assigned Musculoskeletal Provider 09/17/21 10/14/21 Lydia Bernstein PA-C [address] [place] [address] Assigned PCP 10/01/21 10/21/21 Rosa Maria Love Cristina Community Health Worker 10/06/21 07/11/22 [place] [address] [facility] [address] [place] [address] Assigned Musculoskeletal Provider 10/15/21 04/26/23 Paula Reza MD INACTIVE IN [place] 02/02/2024 Assigned PCP 10/22/21 12/23/21 Keerthi Miner, [employer] TURKEY EGG GATHERER [address] [place] [address] Assigned Heart and Vascular Provider 10/08/21 02/10/22 Shahida Sutton APRN TURKEY EGG GATHERER Assigned PCP 12/24/21 03/24/22 Porsha Michaels APRN TURKEY EGG GATHERER [address] [place] [address] Assigned Heart and Vascular Provider 02/11/22 05/12/22 Paula Reza MD INACTIVE IN [place] 02/02/2024 Assigned PCP 03/25/22 04/07/22 Shahida Sutton APRN TURKEY EGG GATHERER [address] [place] [address] Assigned PCP 04/08/22 06/30/22 Daylin Ludwig, EP [facility] [address] [place] [address] Cardiac Rehabilitation Therapist 05/16/23 Laurel Velasquez MD [address] [place] [address] Assigned Heart and Vascular Provider 05/13/22 06/30/22 Daylin Ludwig, MIKI [facility] [address] [place] [address] Cardiac Rehabilitation Therapist 06/08/22 06/09/23 Paula Reza MD INACTIVE IN [place] 02/02/2024 Assigned PCP 07/01/22 07/07/22 Porsha Michaels APRN TURKEY EGG GATHERER [address] [place] [address] Assigned Heart and Vascular Provider 07/01/22 07/07/22 Laurel Velasquez MD [address] [place] [address] Assigned Heart and Vascular Provider 07/08/22 08/04/22 Shahida Sutton APRN TURKEY EGG GATHERER Assigned PCP 07/08/22 09/08/22 Marilin Montaño, TURKEY EGG GATHERER [address] [place] [address] Assigned Heart and Vascular Provider 08/05/22 02/24/24 Esha Dewitt MD [address] [address] Gastroenterology 09/06/22 Heather Mosquera MD [address] [place] [address] Internal Medicine 09/06/22 Paula Reza MD INACTIVE IN [place] 02/02/2024 Assigned PCP 09/09/22 01/05/23 Esha Dewitt MD [address] [place] [address] Assigned Gastroenterology Provider 09/23/22 04/26/24 Valdo Escamilla PA-C [address] [place] [address] Assigned Neuroscience Provider 09/30/22 04/26/24 Nohelia Abarca PA-C [address] [facility] 103 [place] [address] Physician Publications Writer Gastroenterology 10/03/22 Heather Mosquera MD [address] [facility] [address] [place] [address] Assigned PCP 01/06/23 Fawad York MD [address] [place] [address] Assigned Musculoskeletal Provider 04/27/23 06/25/23 documented as of this encounter
--- OUTSIDE RECORDS SUMMARY | 2024-11-02 15:14 | XMS_ITS | Encounter Summary ---
Author Organization [place] Address [address] [place] [address] Care Team Providers Care Mechanical Oxidizer Name Role Phone Roopa Almonte MD Unavailable [phone] Maryse Burton PA-C Unavailable [phone] Roopa Almonte MD Unavailable [phone] Griffin Joshi MD Unavailable Paula Reza MD Primary Care Provider Unavailabl e Roopa Almonte MD Unavailable [phone] Augustine Callaway MD Unavailable Daylin Ludwig Unavailable [phone] Daylin Ludwig Unavailable [phone] Marilin Montaño BULL GANG WORKER Unavailable [phone] Esha Dewitt MD Unavailable [phone] Heather Mosquera MD Unavailable [phone] Paula Reza MD Unavailable Unavailable Esha Dewitt MD Unavailable [phone] Valdo Escamilla-C Unavailable [phone] Nohelia AbarcaC Unavailable [phone] Heather Mosquera MD Unavailable [phone] Fawad York MD Unavailable [phone] Encounter Details Date Type Department Care Team (Late st Contact Info) Description 10/05/2022 MyC Medical Advice [facility] [address] [place] [address] Amy De La Cruz Social [...] AM CDT Legal Sex Male 3:40 AM HEAD OF DATA Gender Identity Male 09/20/2020 8:37 AM CDT Sexual Orientation Straight 09/20/2020 8: 37 AM CDT 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 Not on file Not [...] Optimize Self-Care Behaviors 90%(03/23/19 23 3:12 PM HEAD OF DATA) Angelita Diaz RD Note: I will [...] as of this encounter Care Teams Mechanical Oxidizer Relationship Specialty Start Date End Date Paula Reza MD [address] [place] [address] PCP - General Internal Medicine 08/05/21 Roopa Almonte MD [address] [facility] [address] [place] [address] Endocrinology, Diabetes, and Metabolism 01/19/21 Maryse Burton, PAAna MariaC [address] [place] [address] Physician Systems Accountant Dermatology 04/14/21 Roopa Almonte MD [address] [facility] 200 [place] [address] Hospitalist Endocrinology, Diabetes, and Metabolism 05/30/21 Griffin Joshi MD [address] [place] [address] Cardiovascular Disease 07/25/21 Roopa Almonte MD [address] [facility] 200 [place] [address] Assigned Endocrinology Provider 09/10/21 02/24/24 [place] [address] [facility] [address] [place] [address] Assigned Musculoskeletal Provider 10/15/21 04/26/23 Daylin Ludwig EP [facility] [address] [place] [address] Cardiac Rehabilitation Therapist 05/16/23 Daylin Ludwig EP [facility] [address] [place] [address] Cardiac Rehabilitation Therapist 06/08/22 06/09/23 Marilin Montaño, BULL GANG WORKER [address] [place] [address] Assigned Heart and Vascular Provider 08/05/22 02/24/24 Esha Dewitt MD [address] [facility] 36 [place] [address] Gastroenterology 09/06/22 Heather Mosquera MD [address] [place] [address] Internal Medicine 09/06/22 Paula Reza MD INACTIVE IN [place] 02/02/2024 Assigned PCP 09/09/22 01/05/23 Esha Dewitt MD [address] [place] [address] Assigned Gastroenterology Provider 09/23/22 04/26/24 Valdo Escamilla PA-C [address] [place] [address] Assigned Neuroscience Provider 09/30/22 04/26/24 Nohelia Abarca PA-C [address] [place] [address] Physician Systems Accountant Gastroenterology 10/03/22 Heather Mosquera MD [address] [address] Assigned PCP 01/06/23 Fawad York MD [address] [place] [address] Assigned Musculoskeletal Provider 04/27/23 06/25/23 documented as of this encounter
--- OUTSIDE RECORDS SUMMARY | 2024-11-02 15:14 | XMS_ITS | Encounter Summary ---
Author Organization [facility] Address [address] [place] [address] Care Team Providers Care Professor Of Criminal Justice Name Role Phone Roopa Almonte MD Unavailable [phone] Maryse Burton PA-C Unavailable [phone] Roopa Almonte MD Unavailable [phone] Griffin Joshi MD Unavailable Paula Reza MD Primary Care Provider Unavailabl e Roopa Almonte MD Unavailable [phone] Augustine Callaway MD Unavailable Daylin uLdwig Unavailable [phone] Daylin Ludwig Unavailable [phone] Marilin Montaño PATIENT'S LIBRARIAN Unavailable [phone] Esha Dewitt MD Unavailable [phone] Heather Mosquera MD Unavailable [phone] Paula Reza MD Unavailable Unavailable Esha Dewitt MD Unavailable [phone] Valdo Escamilla-C Unavailable [phone] Nohelia AbarcaC Unavailable [phone] Heather Mosquera MD Unavailable Fawad York MD Unavailable [phone] Encounter Details Date Type Department Care Team (Late st Contact Info) Description 10/13/2022 MyC Medical Advice [facility] [place] [address] [address] Yareli Flynn CMA Social History [...] AM CDT Legal Sex Male 3:40 AM 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 Gender Identity Male 09/20/2020 8:37 AM CDT Sexual Orientation Straight 09/20/2020 8: 37 AM CDT 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 on file Not [...] PCP Care Plan HbA1C Not In Goal Aneglita Diaz RD Get HbA1C Level in Goal [...] Optimize Self-Care Behaviors 90%(03/23/19 23 3:12 PM JAVA DEVELOPER 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) Angelita Diaz RD Note: I will check [...] of this encounter Care Teams Professor Of Criminal Justice Relationship Specialty Start Date End Date Paula Reza MD [address] [facility] [address] [place] [address] PCP - General Internal Medicine 08/05/21 Roopa Almonte MD [address] [address] Endocrinology, Diabetes, and Metabolism 01/19/21 Maryse Burton, PA-C [address] [place] [address] Physician Theatre Professor Dermatology 04/14/21 Roopa Almonte MD [address] [address] Hospitalist Endocrinology, Diabetes, and Metabolism 05/30/21 Griffin Joshi MD [address] [facility] [address] [place] [address] Cardiovascular Disease 07/25/21 Roopa Almonte MD [address] [place] [address] 200 [place], [place] [address] Assigned Endocrinology Provider 09/10/21 02/24/24 [place] [address] [facility] 300 [place] [address] Assigned Musculoskeletal Provider 10/15/21 04/26/23 Daylin Ludwig EP [facility] [address] [place] [address] Cardiac Rehabilitation Therapist 05/16/23 Daylin Ludwig EP [facility] [address] [place] [address] Cardiac Rehabilitation Therapist 06/08/22 06/09/23 Marilin Montaño PATIENT'S LIBRARIAN [address] [place] [address] Assigned Heart and Vascular Provider 08/05/22 02/24/24 Esha Dewitt MD [address] [address] Gastroenterology 09/06/22 Heather Mosquera MD [address] [place] [address] Internal Medicine 09/06/22 Paula Reza MD INACTIVE IN [place] 02/02/2024 Assigned PCP 09/09/22 01/05/23 Esha Dewitt MD [address] [place] [address] Assigned Gastroenterology Provider 09/23/22 04/26/24 Valdo Escamilla PA-C [address] [place] [address] Assigned Neuroscience Provider 09/30/22 04/26/24 Nohelia Abarca PA-C [address] [place] [id number] Physician Theatre Professor Gastroenterology 10/03/22 Heather Mosquera MD [address] [address] Assigned PCP 01/06/23 Fawad York MD [address] [place] [address] Assigned Musculoskeletal Provider 04/27/23 06/25/23 documented as of this encounter
--- OUTSIDE RECORDS SUMMARY | 2024-11-02 15:14 | XMS_ITS | Encounter Summary ---
Author Organization [facility] Address [address] [place] [address] Care Team Providers Care Enrollment Management Coordinator Name Role Phone Shahida Sutton APRN ORIENTAL RUG STRETCHER Primary Care Provi ford Unavailable Shahida Sutton APRN ORIENTAL RUG STRETCHER Unavailable Un available Carolynn Ramon RN Unavailable [phone] Augustine Callaway MD Unavailable Brady Lion MD Unavailable Un available Nima France-C Unavailable [phone] Camille Chandler PA-C Unavailable [phone] Anabela Barakat APRN ORIENTAL RUG STRETCHER Unavailable Nima France PA-C Unavailable [phone] Basilio Morillo DO Unavailable [phone] Fawad York MD Unavailable Roopa Almonte MD Unavailable Augustine Callaway MD Unavailable Maryse Burton PA-C Unavailable [phone] Marquita Starkey MD Unavailable [phone] Roopa Almonte MD Unavailable [phone] Griffin Joshi MD Unavailable + Rina Magallon RN Unavailable [phone] Paula Reza MD Primary Care Provider UnavailGriffin Youssef MD Unavailable Roopa Almonte MD Unavailable [phone] [facility] Unavailable Lydia Bernstein-C Unavailable Rosa Maria Love Unavailable [phone] Augustine Callaway MD Unavailable Paula Reza MD Unavailable Unavailable Keerthi Miner APRN ORIENTAL RUG STRETCHER Unavailable [phone] Herman, Shahida Cummings APRN ORIENTAL RUG STRETCHER Unavailable Un available Porsha Michaels APRN ORIENTAL RUG STRETCHER Unavailable + Paula Reza MD Unavailable Unavailable Herman, Shahida Cummings APRN ORIENTAL RUG STRETCHER Unavailable Un available Daylin Ludwig Unavailable [phone] Laurel Velasquez MD Unavailable [phone] Daylin Ludwig Unavailable [phone] Paula Reza MD Unavailable Unavailable Porsha Michaels APRN ORIENTAL RUG STRETCHER Unavailable + Laurel Velasquez MD Unavailable + [phone] HermanShahida huerta APRN ORIENTAL RUG STRETCHER Unavailable Un available Marilin Montaño ORIENTAL RUG STRETCHER Unavailable [phone] Esha Dewitt MD Unavailable + [phone] Heather Mosquera MD Unavailable [phone] Paula Reza MD Unavailable Unavailable Esha Dewitt MD Unavailable [phone] Valdo Escamilla PA-C Unavailable Nohelia Abarca PA-C Unavailable [phone] Heather Mosquera MD Unavailable [phone] Fawad York MD Unavailable [phone] Reason for Visit * Reason Comments Medication Refill Encounter Details Date Type Department Care Team (Late st Contact Info) Description 09/03/[address] [address] Vesta Aguayo PA-C [address] [facility] [address] [place] [address] Medication Refill Social History Tobacco Use Types [...] AM CDT Legal Sex Male 3:40 AM 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 Gender Identity Male 09/20/2020 8:37 AM CDT Sexual Orientation Straight 09/20/2020 8: 37 AM CDT 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 on 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 Not [...] Out COVID-19 02/15/2020 02/15/2020 02/16/2020 2:32 PM LARGE 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 OPERATOR Rule Out COVID-19 01/05/2021 01/05/2021 01/06/2021 12:57 PM CDT ESBL 01/05/2021 01/05/2021 Rule Out COVID-19 06/30/2021 06/30/2021 07/01/2021 9:34 AM CDT Rule Out COVID-19 07/25/2021 07/25/2021 07/25/2021 8:02 PM CDT Assessment Noted Time PHQ-9 Depression Total Score: 7 08/13/19 20 1:22 PM CDT documented as of this encounter Care Teams Enrollment Management Coordinator Relationship Specialty Start Date End Date Shahida Sutton APRN ORIENTAL RUG STRETCHER PCP - General Nurse Practitioner 08/17/14 08/04/21 Paula Reza MD PCP - General Internal Medicine 08/05/21 Shahida Sutton APRN ORIENTAL RUG STRETCHER Assigned PCP 07/12/14 09/30/21 Carolynn Ramon RN Personal Advocate & Liaison (PAL) 12/17/18 08/07/21 [place] [address] [place] [address] Assigned Musculoskeletal Provider 12/26/19 08/21/20 Brady Lion MD Assigned Heart and Vascular Provider 12/26/19 08/14/20 Nima France PA-C [address] [place] [address] Assigned Surgical Provider 05/19/20 08/21/20 Camille Chandler PA-C [address] [place] [id number] Assigned Neuroscience Provider 05/19/20 09/14/20 Anabela Barakat APRN ORIENTAL RUG STRETCHER [address] [place] [address] Assigned Heart and Vascular Provider 08/15/20 08/05/21 Nima France PA-C [address] [facility] [address] [place] [address] Assigned Musculoskeletal Provider 08/22/20 11/13/20 [place] [address] [place] [address] Assigned Musculoskeletal Provider 11/14/20 12/04/20 Fawad York MD [address] [place], [place] [address] Assigned Musculoskeletal Provider 12/05/20 02/05/21 Roopa Almonte MD [address] [facility] [address] [place] [address] Endocrinology, Diabetes, and Metabolism 01/19/21 [place] [address] [facility] [address] [place] [address] Assigned Musculoskeletal Provider 02/06/21 09/16/21 Maryse Burton PA-C [address] [place] [address] Physician Electrolytic Etcher Dermatology 04/14/21 Marquita Starkey MD [address] [facility] [address] [place] [address] Internal Medicine 05/06/21 05/06/21 Roopa Almonte MD [address] [facility] [address] [place] [address] Hospitalist Endocrinology, Diabetes, and Metabolism 05/30/21 Griffin Joshi MD [address] [facility] [address] [place] [address] Cardiovascular Disease 07/25/21 Rina Magallon, RN Lead French Comber 07/29/21 07/11/22 Griffin Joshi MD [address] [facility] [address] [place] [address] Assigned Heart and Vascular Provider 08/06/21 10/07/21 Roopa Almonte MD [address] [place] [address] 200 [place], [place] [address] Assigned Endocrinology Provider 09/10/21 02/24/24 [place] [address] [facility] [place] [address] Assigned Musculoskeletal Provider 09/17/21 10/14/21 Lydia Bernstein PA-C [address] [facility] [address] [place] [address] Assigned PCP 10/01/21 10/21/21 Rosa Maria Love CHW Community Health Worker 10/06/21 07/11/22 [place] [address] [address] [facility] [address] [place] [address] Assigned Musculoskeletal Provider 10/15/21 04/26/23 Paula Reza MD INACTIVE IN [place] 02/02/2024 Assigned PCP 10/22/21 12/23/21 Keerthi Miner APRN ORIENTAL RUG STRETCHER [address] [place] [address] Assigned Heart and Vascular Provider 10/08/21 02/10/22 Shahida Sutton APRN ORIENTAL RUG STRETCHER Assigned PCP 12/24/21 03/24/22 Porsha Michaels APRN ORIENTAL RUG STRETCHER [address] [place] [address] Assigned Heart and Vascular Provider 02/11/22 05/12/22 Paula Reza MD INACTIVE IN [place] 02/02/2024 Assigned PCP 03/25/22 04/07/22 Shahida Sutton APRN ORIENTAL RUG STRETCHER [address] [place] [address] Assigned PCP 04/08/22 06/30/22 Daylin Ludwig EP [facility] [address] [place] [address] Cardiac Rehabilitation Therapist 05/16/23 Laurel Velasquez MD [address] [place] [address] Assigned Heart and Vascular Provider 05/13/22 06/30/22 Daylin Ludwig EP [facility] [address] [place] [address] Cardiac Rehabilitation Therapist 06/08/22 06/09/23 Paula Reza MD INACTIVE IN [place] 02/02/2024 Assigned PCP 07/01/22 07/07/22 Porsha Michaels APRN ORIENTAL RUG STRETCHER [address] [place] [address] Assigned Heart and Vascular Provider 07/01/22 07/07/22 Laurel Velasquez MD [address] [place] [address] Assigned Heart and Vascular Provider 07/08/22 08/04/22 Shahida Sutton APRN ORIENTAL RUG STRETCHER Assigned PCP 07/08/22 09/08/22 Marilin Montaño, ORIENTAL RUG STRETCHER [address] [place] [address] Assigned Heart and Vascular Provider 08/05/22 02/24/24 Esha Dewitt MD [address] [place] [id number] Gastroenterology 09/06/22 Heather Mosquera MD [address] [place] [address] [place], [place] [address] Internal Medicine 09/06/22 Paula Reza MD INACTIVE IN [place] 02/02/2024 Assigned PCP 09/09/22 01/05/23 Esha Dewitt MD [address] [place] [address] Assigned Gastroenterology Provider 09/23/22 04/26/24 Valdo Escamilla PA-C [address] [place] [address] Assigned Neuroscience Provider 09/30/22 04/26/24 Nohelia Abarca PA-C [address] [place] [address] Physician Electrolytic Etcher Gastroenterology 10/03/22 Heather Mosquera MD [address] [place] [id number] Assigned PCP 01/06/23 Fawad York MD [address] [place], [place] [address] Assigned Musculoskeletal Provider 04/27/23 06/25/23 documented as of this encounter
--- OUTSIDE RECORDS SUMMARY | 2024-11-02 15:14 | XMS_ITS | Encounter Summary ---
Author Organization [facility] Address [address] [place] [address] Care Team Providers Care Incident Coordinator Name Role Phone Roopa Almonte MD Unavailable [phone] Maryse Burton PA-C Unavailable [phone] Roopa Almonte MD Unavailable [phone] Griffin Joshi MD Unavailable Paula Reza MD Primary Care Provider Unavailabl e Roopa Almonte MD Unavailable [phone] Augustine Callaway MD Unavailable Daylin Ludwig Unavailable [phone] Daylin Ludwig Unavailable [phone] Marilin Montaño ELEVATOR CONSTRUCTOR Unavailable [phone] Esha Dewitt MD Unavailable [phone] Heather Mosquera MD Unavailable [phone] Paula Reza MD Unavailable Unavailable Esha Dewitt MD Unavailable [phone] Valdo Escamilla-C Unavailable [phone] Nohelia AbarcaC Unavailable [phone] Heather Mosquera MD Unavailable [phone] Fawad York MD Unavailable [phone] Encounter Details Date Type Department Care Team (Late st Contact Info) Description 10/05/2022 MyC Medical Advice [facility] [address] 4[address] [place] [address] Amy De La Cruz Social [...] AM CDT Legal 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 Gender Identity Male 09/20/2020 8:37 AM CDT Sexual Orientation Straight 09/20/2020 8: 37 AM CDT 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 Not on file [...] Optimize Self-Care Behaviors 90%(03/23/19 23 3:12 PM ECONOMIC RESEARCH ASSISTANT) Angelita Diaz RD Note: I will [...] as of this encounter Care Teams Incident Coordinator Relationship Specialty Start Date End Date Paula Reza MD [address] [facility] [address] [place] [address] PCP - General Internal Medicine 08/05/21 Roopa Almonte MD [address] [facility] [address] [place] [address] Endocrinology, Diabetes, and Metabolism 01/19/21 Maryse Burton, PAAna MariaC [address] [place] [address] Physician Flow Coordinator Dermatology 04/14/21 Roopa Almonte MD [address] [facility] [address] [place] [address] Hospitalist Endocrinology, Diabetes, and Metabolism 05/30/21 Griffin Joshi MD [address] [facility] [address] [place] [address] Cardiovascular Disease 07/25/21 Roopa Almonte MD [address] [facility] 200 [place] [address] Assigned Endocrinology Provider 09/10/21 02/24/24 [place] [address] [facility] [address] [place] [address] Assigned Musculoskeletal Provider 10/15/21 04/26/23 Daylin Ludwig EP [facility] [address] [place] [address] Cardiac Rehabilitation Therapist 05/16/23 Daylin Ludwig EP [facility] [address] [place] [id number] Cardiac Rehabilitation Therapist 06/08/22 06/09/23 Marilin Montaño, ELEVATOR CONSTRUCTOR [address] [place] [address] Assigned Heart and Vascular Provider 08/05/22 02/24/24 Esha Dewitt MD [address] [facility] 36 [place] [address] Gastroenterology 09/06/22 Heather Mosquera MD [address] [place] [address] Internal Medicine 09/06/22 Paula Reza MD INACTIVE IN [place] 02/02/2024 Assigned PCP 09/09/22 01/05/23 Esha Dewitt MD [address] [place] [address] Assigned Gastroenterology Provider 09/23/22 04/26/24 Valdo Escamilla PA-C [address] [place] [address] Assigned Neuroscience Provider 09/30/22 04/26/24 Nohelia Abarca PA-C [address] [place] [address] Physician Flow Coordinator Gastroenterology 10/03/22 Heather Mosquera MD [address] [address] Assigned PCP 01/06/23 Fawad York MD [address] [place] [address] Assigned Musculoskeletal Provider 04/27/23 06/25/23 documented as of this encounter
--- OUTSIDE RECORDS SUMMARY | 2024-11-02 15:14 | XMS_ITS | Encounter Summary ---
Author Organization [facility] Address [address] [place] [address] Care Team Providers Care Waste Baler Name Role Phone Roopa Almonte MD Unavailable [phone] Maryse Burton PA-C Unavailable [phone] Roopa Almonte MD Unavailable [phone] Griffin Joshi MD Unavailable Paula Reza MD Primary Care Provider Unavailabl e Roopa Almonte MD Unavailable [phone] Augustine Callaway MD Unavailable Daylin Ludwig Unavailable [phone] Daylin Ludwig Unavailable [phone] Marilin Montaño ACTUARIAL SCIENCE TEACHER Unavailable [phone] Esha Dewitt MD Unavailable [phone] Heather Mosquera MD Unavailable [phone] Paula Reza MD Unavailable Unavailable Esha Dewitt MD Unavailable [phone] Valdo Escamilla-C Unavailable [phone] Nohelia AbarcaC Unavailable [phone] Heather Mosquera MD Unavailable Fawad York MD Unavailable Encounter Details Date Type Department Care Team (Late st Contact Info) Description 10/19/2022 MyC Medical Advice [facility] Gastroenterology Clinic [address] 4th [place] [phone] Paz Zavala, RN Social History Tobacco Use [...] AM CDT Legal Sex Male 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 HIGHBALLER Gender Identity Male 09/20/2020 8:37 AM CDT Sexual Orientation Straight 09/20/2020 8: 37 AM CDT 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 Not on file [...] to Optimize Self-Care Behaviors Angleita Diaz RD Monitoring - monitor glucose and ketones as directed Care Plan Diabetes Self-Management Education Needed to Optimize Self-Care Behaviors 90%(03/23/19 3:12 PM HIGHBALLER) Angelita Diaz RD Note: I will check [...] documented as of this encounter Care Teams Waste Baler Relationship Specialty Start Date End Date Paula Reza MD [address] [facility] [address] [place] [address] PCP - General Internal Medicine 08/05/21 Roopa Almonte MD [address] [address] Endocrinology, Diabetes, and Metabolism 01/19/21 Maryse Burton, PAAna MariaC [address] [place] [address] Physician Rest Room Attendant Dermatology 04/14/21 Roopa Almonte MD [address] [address] Hospitalist Endocrinology, Diabetes, and Metabolism 05/30/21 Griffin Joshi MD [address] [facility] [address] [place] [address] Cardiovascular Disease 07/25/21 Roopa Almonte MD [address] [facility] 200 [place], [place] [address] Assigned Endocrinology Provider 09/10/21 02/24/24 [place] [address] [facility] 300 [place] [address] Assigned Musculoskeletal Provider 10/15/21 04/26/23 Daylin Ludwig EP [facility] [address] [place] [place] [address] Cardiac Rehabilitation Therapist 05/16/23 Daylin Ludwig EP [facility] [address] [place] [address] Cardiac Rehabilitation Therapist 06/08/22 06/09/23 Marilin Montaño, ACTUARIAL SCIENCE TEACHER [address] [place] [address] Assigned Heart and Vascular Provider 08/05/22 02/24/24 Esha Dewitt MD [address] [place] [address] Gastroenterology 09/06/22 Heather Mosquera MD [address] [place] [address] Internal Medicine 09/06/22 Paula Reza MD INACTIVE IN [place] 02/02/2024 Assigned PCP 09/09/22 01/05/23 Esha Dewitt MD [address] [place] [address] Assigned Gastroenterology Provider 09/23/22 04/26/24 Valdo Escamilla PA-C [address] [place] [address] Assigned Neuroscience Provider 09/30/22 04/26/24 Nohelia Abarca PA-C [address] [place] [address] Physician Rest Room Attendant Gastroenterology 10/03/22 Heather Mosquera MD [address] [address] Assigned PCP 01/06/23 Fawad York MD [address] [place] [address] Assigned Musculoskeletal Provider 04/27/23 06/25/23 documented as of this encounter
--- OUTSIDE RECORDS SUMMARY | 2024-11-02 15:14 | XMS_ITS | Encounter Summary ---
Author Organization [place] Address [address] [place] [address] Care Team Providers Care Medical Imaging Technologist Name Role Phone Shahida Sutton APRN ASSOCIATE PATHOLOGIST Primary Care Provi ford Unavailable Shahida Sutton APRN ASSOCIATE PATHOLOGIST Unavailable Un available Carolynn Ramon RN Unavailable [phone] Augustine Callaway MD Unavailable Brady Lion MD Unavailable Un available Nima France-C Unavailable [phone] Camille Chandler PA-C Unavailable [phone] Anabela Barakat APRN ASSOCIATE PATHOLOGIST Unavailable Nima France PA-C Unavailable [phone] Basilio Morillo DO Unavailable Fawad York MD Unavailable Roopa Almonte MD Unavailable Augustine Callaway MD Unavailable Maryse Burton PA-C Unavailable Marquita Starkey MD Unavailable [phone] Roopa Almonte MD Unavailable [phone] Griffin Joshi MD Unavailable + Rina Magallon RN Unavailable [phone] Paula Reza MD Primary Care Provider UnavailGriffin Youssef MD Unavailable Roopa Almonte MD Unavailable [phone] [facility] rex[facility]ilio stiles Unavailable Lydia Bernstein-C Unavailable Rosa Maria Love Unavailable [phone] Augustine Callaway MD Unavailable Paula Reza MD Unavailable Unavailable Keerthi Miner APRN ASSOCIATE PATHOLOGIST Unavailable [phone] Herman, Shahida Cummings APRN ASSOCIATE PATHOLOGIST Unavailable Un available Porsha Michaels APRN ASSOCIATE PATHOLOGIST Unavailable + Paula Reza MD Unavailable Unavailable Herman, Shahida Cummings APRN ASSOCIATE PATHOLOGIST Unavailable Un available Daylin Ludwig Unavailable [phone] Laurel Velasquez MD Unavailable [phone] Daylin Ludwig Unavailable +[phone] Paula Reza MD Unavailable Unavailable Porsha Michaels APRN ASSOCIATE PATHOLOGIST Unavailable + Laurel Velasquez MD Unavailable + [phone] HermanShahida huerta APRN ASSOCIATE PATHOLOGIST Unavailable Un available Marilin Montaño ASSOCIATE PATHOLOGIST Unavailable [phone] Esha Dewitt MD Unavailable + [phone] Heather Mosquera MD Unavailable [phone] Paula Reza MD Unavailable Unavailable Esha Dewitt MD Unavailable [phone] Valdo Escamilla PA-C Unavailable [phone] Nohelia Abarca PA-C Unavailable [phone] Heather Mosquera MD Unavailable [phone] Fawad York MD Unavailable [phone] Encounter Details Date Type Department Care Team (Late st Contact Info) Description 07/16/2019 MyC Medical Advice [address] [address] Angela Marcelo, FINANCIAL SYSTEMS DIRECTOR Social History Tobacco Use Types Packs/Day [...] AM CDT Legal 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 Gender Identity Male 09/20/2020 8:37 AM CDT Sexual Orientation Straight 09/20/2020 8: 37 AM CDT 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 on file Not on jabier e documented as of this encounter Plan of Treatment Not on file documented as of this encounter Visit Diagnoses Not on filedocumented in this encounter Additional Health Concerns Infection Onset Date Last Indicated Resolved Time Rule Out COVID-19 02/15/2020 02/15/2020 02/16/2020 2:32 PM OYSTER CULTURIST Rule Out COVID-19 01/05/2021 01/05/2021 01/06/2021 12:57 PM CDT ESBL 01/05/2021 01/05/2021 Rule Out COVID-19 06/30/2021 06/30/2021 07/01/2021 9:34 AM CDT Rule Out COVID-19 07/25/2021 07/25/2021 07/25/2021 8:02 PM CDT Assessment Noted Time PHQ-9 Depression Total Score: 6 12/20/ 18 7:06 AM CDT documented as of this encounter Care Teams Medical Imaging Technologist Relationship Specialty Start Date End Date Shahida Sutton APRN ASSOCIATE PATHOLOGIST PCP - General Nurse Practitioner 08/17/14 08/04/21 Paula Reza MD PCP - General Internal Medicine 08/05/21 Shahida Sutton APRN ASSOCIATE PATHOLOGIST Assigned PCP 07/12/14 09/30/21 Carolynn Ramon RN Personal Advocate & Liaison (PAL) 12/17/18 08/07/21 [place] [address] [place] [address] Assigned Musculoskeletal Provider 12/26/19 08/21/20 Brady Lion MD Assigned Heart and Vascular Provider 12/26/19 08/14/20 Nima France PA-C [address] [place] [address] Assigned Surgical Provider 05/19/20 08/21/20 Camille Chandler PA-C [address] [facility] [address] [place] [address] Assigned Neuroscience Provider 05/19/20 09/14/20 Anabela Barakat APRN ASSOCIATE PATHOLOGIST [address] [place] [address] Assigned Heart and Vascular Provider 08/15/20 08/05/21 Nima France PA-C [address] [place] [address] Assigned Musculoskeletal Provider 08/22/20 11/13/20 [place] [address] [facility] [place] [address] Assigned Musculoskeletal Provider 11/14/20 12/04/20 Fawad York MD [address] [facility] [place], [place] [address] Assigned Musculoskeletal Provider 12/05/20 02/05/21 Roopa Almonte MD [address] [facility] [address] [place] [address] Endocrinology, Diabetes, and Metabolism 01/19/21 [place] [address] [facility] [address] [place] [address] Assigned Musculoskeletal Provider 02/06/21 09/16/21 Maryse Burton PA-C [address] [place] [address] Physician Core Inspector Dermatology 04/14/21 Marquita Starkey MD [address] [facility] 200 [place] [address] Internal Medicine 05/06/21 05/06/21 Roopa Almonte MD [address] [facility] [address] [place] [address] Hospitalist Endocrinology, Diabetes, and Metabolism 05/30/21 Griffin Joshi MD [address] [facility] [address] [place] [address] Cardiovascular Disease 07/25/21 Rina Magallon, RN Lead Equalizing Saw Operator 07/29/21 07/11/22 Griffin Joshi MD [address] [place] [address] Assigned Heart and Vascular Provider 08/06/21 10/07/21 Roopa Almonte MD [address] 200 [place] [address] Assigned Endocrinology Provider 09/10/21 02/24/24 [place] [address] [facility] [place] [place] [address] Assigned Musculoskeletal Provider 09/17/21 10/14/21 Lydia Bernstein PA-C [address] [place] [address] Assigned PCP 10/01/21 10/21/21 Rosa Maria Love Cristina Community Health Worker 10/06/21 07/11/22 [place] [address] [facility] [address] [place] [address] Assigned Musculoskeletal Provider 10/15/21 04/26/23 Paula Reza MD [place] 02/02/2024 Assigned PCP 10/22/21 12/23/21 Keerthi Miner APRN ASSOCIATE PATHOLOGIST [address] [place] [address] Assigned Heart and Vascular Provider 10/08/21 02/10/22 Shahida Sutton APRN ASSOCIATE PATHOLOGIST Assigned PCP 12/24/21 03/24/22 Porsha Michaels APRN ASSOCIATE PATHOLOGIST [address] [place] [address] Assigned Heart and Vascular Provider 02/11/22 05/12/22 Paula Reza MD [place] 02/02/2024 Assigned PCP 03/25/22 04/07/22 Shahida Sutton APRN ASSOCIATE PATHOLOGIST [address] [place] [address] Assigned PCP 04/08/22 06/30/22 Daylin Ludwig, [facility] [address] [place] [address] Cardiac Rehabilitation Therapist 05/16/23 Laurel Velasquez MD [address] [place] [address] Assigned Heart and Vascular Provider 05/13/22 06/30/22 Daylin Ludwig, [facility] [address] [place] [address] Cardiac Rehabilitation Therapist 06/08/22 06/09/23 Paula Reza MD [place] 02/02/2024 Assigned PCP 07/01/22 07/07/22 Porsha Michaels APRN ASSOCIATE PATHOLOGIST [address] [place] [address] Assigned Heart and Vascular Provider 07/01/22 07/07/22 Laurel Velasquez MD [address] [place] [address] Assigned Heart and Vascular Provider 07/08/22 08/04/22 Shahida Sutton APRN ASSOCIATE PATHOLOGIST Assigned PCP 07/08/22 09/08/22 Marilin Montaño, ASSOCIATE PATHOLOGIST [address] [place] [address] Assigned Heart and Vascular Provider 08/05/22 02/24/24 Esha Dewitt MD [address] [place] [address] Gastroenterology 09/06/22 Heather Mosquera MD [address] [place] [address] Internal Medicine 09/06/22 Paula Reza MD [place] 02/02/2024 Assigned PCP 09/09/22 01/05/23 Esha Dewitt MD [address] [place] [address] Assigned Gastroenterology Provider 09/23/22 04/26/24 Valdo Escamilla PA-C [address] [place] [address] Assigned Neuroscience Provider 09/30/22 04/26/24 Nohelia Abarca PA-C [address] [place], [place] [address] Physician Core Inspector Gastroenterology 10/03/22 Heather Mosquera MD [address] [address] Assigned PCP 01/06/23 Fawad York MD [address] [place] [address] Assigned Musculoskeletal Provider 04/27/23 06/25/23 documented as of this encounter
--- OUTSIDE RECORDS SUMMARY | 2024-11-02 15:14 | XMS_ITS | Encounter Summary ---
Author Organization [place] Address [address] [place] [address] Care Team Providers Care Broom Worker Name Role Phone Shahida Sutton APRN ASBESTOS REMOVAL WORKER Primary Care Provi ford Unavailable Shahida Sutton APRN ASBESTOS REMOVAL WORKER Unavailable Un available Carolynn Ramon RN Unavailable [phone] Augustine Callaway MD Unavailable Brady Lion MD Unavailable Un available Nima France-C Unavailable [phone] Camille Chandler PA-C Unavailable [phone] Anabela Barakat APRN ASBESTOS REMOVAL WORKER Unavailable Nima France PA-C Unavailable [phone] Basilio Morillo DO Unavailable Fawad York MD Unavailable Roopa Almonte MD Unavailable Augustine Callaway MD Unavailable Maryse Burton PA-C Unavailable Marquita Starkey MD Unavailable [phone] Roopa Almonte MD Unavailable [phone] Griffin Joshi MD Unavailable + Rina Magallon RN Unavailable [phone] Paula Reza MD Primary Care Provider UnavailGriffin Youssef MD Unavailable Roopa Almonte MD Unavailable [phone] [facility] stiles Unavailable Lydia Bernstein-C Unavailable Rosa Maria Love Unavailable [phone] Augustine Callaway MD Unavailable Paula Reza MD Unavailable Unavailable Keerthi Miner APRN ASBESTOS REMOVAL WORKER Unavailable [phone] Herman, Shahida Cummings APRN ASBESTOS REMOVAL WORKER Unavailable Un available Porsha Michaels APRN ASBESTOS REMOVAL WORKER Unavailable + Paula Reza MD Unavailable Unavailable Herman, Shahida Cummings APRN ASBESTOS REMOVAL WORKER Unavailable Un available Daylin Ludwig Unavailable [phone] Laurel Velasquez MD Unavailable [phone] Daylin Ludwig Unavailable +[phone] Paula Reza MD Unavailable Unavailable Porsha Michaels APRN ASBESTOS REMOVAL WORKER Unavailable + Laurel Velasquez MD Unavailable + [phone] HermanShahida huerta APRN ASBESTOS REMOVAL WORKER Unavailable Un available Marilin Montaño ASBESTOS REMOVAL WORKER Unavailable [phone] Esha Dewitt MD Unavailable + [phone] Heather Mosquera MD Unavailable [phone] Paula Rzea MD Unavailable Unavailable Esha Dewitt MD Unavailable [phone] Valdo Escamilla PA-C Unavailable Nohelia Abarca PA-C Unavailable [phone] Heather Mosquera MD Unavailable [phone] Fawad York MD Unavailable [phone] Encounter Details Date Type Department Care Team (Late st Contact Info) Description 06/27/[address] [address] Shahida Sutton APRN ASBESTOS REMOVAL WORKER Social History Tobacco Use Types Packs/Day [...] AM CDT Legal Sex Male 3:[address]POR[address] Gender Identity Male 09/20/2020 8:37 AM CDT Sexual Orientation Straight 09/20/2020 8: 37 AM CDT 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 on 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 e documented as of this encounter Plan of Treatment Not on file documented as of this encounter Visit Diagnoses Not on filedocumented in this encounter Additional Health Concerns Infection Onset Date Last Indicated Resolved Time Rule Out COVID-19 02/15/2020 02/15/2020 02/16/2020 2:[address] REPORTER Rule Out COVID-19 01/05/2021 01/05/2021 01/06/2021 12:57 PM CDT ESBL 01/05/2021 01/05/2021 Rule Out COVID-19 06/30/2021 06/30/2021 07/01/2021 9:34 AM CDT Rule Out COVID-19 07/25/2021 07/25/2021 07/25/2021 8:02 PM CDT Assessment Noted Time PHQ-9 Depression Total Score: 6 12/20/ 18 7:06 AM CDT documented as of this encounter Care Teams Broom Worker Relationship Specialty Start Date End Date Shahida Sutton APRN ASBESTOS REMOVAL WORKER PCP - General Nurse Practitioner 08/17/14 08/04/21 Paula Reza MD PCP - General Internal Medicine 08/05/21 Shahida Sutton, DUANE ASBESTOS REMOVAL WORKER Assigned PCP 07/12/14 09/30/21 Carolynn Ramon RN Personal Advocate & Liaison (PAL) 12/17/18 08/07/21 [place] [address] [place] [address] Assigned Musculoskeletal Provider 12/26/19 08/21/20 Brady Lion MD Assigned Heart and Vascular Provider 12/26/19 08/14/20 Nima France PA-C [address] [place] [address] Assigned Surgical Provider 05/19/20 08/21/20 Camille Chandler PA-C [address] [place] [address] Assigned Neuroscience Provider 05/19/20 09/14/20 Anabela Barakat APRN ASBESTOS REMOVAL WORKER [address] [place] [address] Assigned Heart and Vascular Provider 08/15/20 08/05/21 Nima France PA-C [address] [place] [address] Assigned Musculoskeletal Provider 08/22/20 11/13/20 Basilio Morillo DO [place] [address] [facility] [place] [address] Assigned Musculoskeletal Provider 11/14/20 12/04/20 Fawad York MD [address] [place], [place] [address] Assigned Musculoskeletal Provider 12/05/20 02/05/21 Roopa Almonte MD [address] [facility] 200 [place] [address] Endocrinology, Diabetes, and Metabolism 01/19/21 [place] [address] [facility] [address] [place] [address] Assigned Musculoskeletal Provider 02/06/21 09/16/21 Maryse Burton PA-C [address] [place] [address] Physician Bump Grader Operator Dermatology 04/14/21 Marquita Starkey MD [address] [facility] 200 [place] [address] Internal Medicine 05/06/21 05/06/21 Roopa Almonte MD [address] [facility] [address] [place] [address] Hospitalist Endocrinology, Diabetes, and Metabolism 05/30/21 Griffin Joshi MD [address] [place] [address] Cardiovascular Disease 07/25/21 Rina Magallon, RN Lead Geomagnetician 07/29/21 07/11/22 Griffin Joshi MD [address] [place] [address] Assigned Heart and Vascular Provider 08/06/21 10/07/21 Roopa Almonte MD [address] [facility] 200 [place] [address] Assigned Endocrinology Provider 09/10/21 02/24/24 [place] [address] [facility] [place] [address] Assigned Musculoskeletal Provider 09/17/21 10/14/21 Lydia Bernstein PA-C [address] [place] [address] Assigned PCP 10/01/21 10/21/21 Rosa Maria Love CHW Community Health Worker 10/06/21 07/11/22 [place] [address] [facility] [address] [place] [address] Assigned Musculoskeletal Provider 10/15/21 04/26/23 Paula Reza MD [place] IN [place] 02/02/2024 Assigned PCP 10/22/21 12/23/21 Keerthi Miner APRN ASBESTOS REMOVAL WORKER [address] [place] [address] Assigned Heart and Vascular Provider 10/08/21 02/10/22 Shahida Sutton APRN ASBESTOS REMOVAL WORKER Assigned PCP 12/24/21 03/24/22 Porsha Michaels APRN ASBESTOS REMOVAL WORKER [address] [place] [address] Assigned Heart and Vascular Provider 02/11/22 05/12/22 Paula Reza MD [place] 02/02/2024 Assigned PCP 03/25/22 04/07/22 Shahida Sutton APRN ASBESTOS REMOVAL WORKER [address] [place] [address] Assigned PCP 04/08/22 06/30/22 Daylin Ludwig, EP [facility] [address] [place] [address] Cardiac Rehabilitation Therapist 05/16/23 Laurel Velasquez MD [address] [place] [address] Assigned Heart and Vascular Provider 05/13/22 06/30/22 Daylin Ludwig, EP [facility] [address] [place] [address] Cardiac Rehabilitation Therapist 06/08/22 06/09/23 Paula Reza MD [place] IN [place] 02/02/2024 Assigned PCP 07/01/22 07/07/22 Porsha Michaels APRN ASBESTOS REMOVAL WORKER [address] [place] [address] Assigned Heart and Vascular Provider 07/01/22 07/07/22 Laurel Velasquez MD [address] [place], [place] [address] Assigned Heart and Vascular Provider 07/08/22 08/04/22 Shahida Sutton APRN ASBESTOS REMOVAL WORKER Assigned PCP 07/08/22 09/08/22 Marilin Montaño, ASBESTOS REMOVAL WORKER [address] [place] [address] Assigned Heart and Vascular Provider 08/05/22 02/24/24 Esha Dewitt MD [address] [place] [address] Gastroenterology 09/06/22 Heather Mosquera MD [address] [place] [address] Internal Medicine 09/06/22 Paula Reza MD [place] IN [place] 02/02/2024 Assigned PCP 09/09/22 01/05/23 Esha Dewitt MD [address] [place] [address] Assigned Gastroenterology Provider 09/23/22 04/26/24 Valdo Escamilla PA-C [address] [place] [address] Assigned Neuroscience Provider 09/30/22 04/26/24 Nohelia Abarca PA-C [address] [place] [address] Physician Bump Grader Operator Gastroenterology 10/03/22 Heather Mosquera MD [address] [address] Assigned PCP 01/06/23 Fawad York MD [address] [place], [place] [address] Assigned Musculoskeletal Provider 04/27/23 06/25/23 documented as of this encounter
--- OUTSIDE RECORDS SUMMARY | 2024-11-02 15:14 | XMS_ITS | Encounter Summary ---
Author Organization [place] Address [address] [place] [address] Care Team Providers Care Auto Service Representative Name Role Phone Roopa Almonte MD Unavailable [phone] Maryse Burton PA-C Unavailable [phone] Roopa Almonte MD Unavailable [phone] Griffin Joshi MD Unavailable Paula Reza MD Primary Care Provider Unavailabl e Roopa Almonte MD Unavailable [phone] Augustine Callwaay MD Unavailable Daylin Ludwig Unavailable [phone] Daylin Ludwig Unavailable [phone] Marilin Montaño DISPLAY ASSOCIATE Unavailable [phone] Esha Dewitt MD Unavailable [phone] Heather Mosquera MD Unavailable [phone] Paula Reza MD Unavailable Unavailable Esha Dewitt MD Unavailable [phone] Valdo Escamilla-C Unavailable [phone] Nohelia AbarcaC Unavailable [phone] Heather Mosquera MD Unavailable [phone] Fawad York MD Unavailable [phone] Encounter Details Date Type Department Care Team (Late st Contact Info) Description 11/20/2022 MyC Medical Advice [facility] [address] [facility] [address] [place] [address] Karmen Nicolas, RN Social History Tobacco [...] AM CDT Legal Sex Male 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 Gender Identity Male 09/20/2020 8:37 AM CDT Sexual Orientation Straight 09/20/2020 8: 37 AM CDT 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 Not on file Not [...] to Optimize Self-Care Behaviors 90%(03/23/19 3:12 PM 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 OPERATOR) Angelita Diaz RD Note: I will [...] as of this encounter Care Teams Auto Service Representative Relationship Specialty Start Date End Date Paula Reza MD [address] [facility] [address] [facility] [address] [place] [address] PCP - General Internal Medicine 08/05/21 Roopa Almonte MD [address] [facility] 200 [place] [address] Endocrinology, Diabetes, and Metabolism 01/19/21 Maryse Burton, PAAna MariaC [address] [place] [address] Physician Laser Systems Engineer Dermatology 04/14/21 Roopa Almonte MD [address] [facility] [facility] 200 [place] [address] Hospitalist Endocrinology, Diabetes, and Metabolism 05/30/21 Griffin Joshi MD [address] [facility] [address] [place] [address] Cardiovascular Disease 07/25/21 Roopa Almonte MD [address] [place] [address] 200 [place] [address] Assigned Endocrinology Provider 09/10/21 02/24/24 [place] [address] [facility] 300 [place] [address] Assigned Musculoskeletal Provider 10/15/21 04/26/23 Daylin Ludwig EP [facility] [address] [place] [address] Cardiac Rehabilitation Therapist 05/16/23 Daylin Ludwig EP [facility] [address] [place] [address] Cardiac Rehabilitation Therapist 06/08/22 06/09/23 Marilin Montaño, DISPLAY ASSOCIATE [address] [place] [address] Assigned Heart and Vascular Provider 08/05/22 02/24/24 Esha Dewitt MD [address] [facility] 36 [place] [address] MD Gastroenterology 09/06/22 Heather Mosquera MD [address] [place] [address] Internal Medicine 09/06/22 Paula Reza MD INACTIVE IN [place] 02/02/2024 Assigned PCP 09/09/22 01/05/23 Esha Dewitt MD [address] [place] [address] 36 [place] [address] Assigned Gastroenterology Provider 09/23/22 04/26/24 Valdo Escamilla PA-C [address] [place] [address] Assigned Neuroscience Provider 09/30/22 04/26/24 Nohelia Abarca PA-C [address] [place] [address] Physician Laser Systems Engineer Gastroenterology 10/03/22 Heather Mosquera MD [address] [facility] [address] [place] [address] Assigned PCP 01/06/23 Fawad York MD [address] [place] [address] Assigned Musculoskeletal Provider 04/27/23 06/25/23 documented as of this encounter
--- OUTSIDE RECORDS SUMMARY | 2024-11-02 15:14 | XMS_ITS | Encounter Summary ---
Author Organization [place] Address [address] [place] [address] Care Team Providers Care Oem Sales Manager Name Role Phone Roopa Almonte MD Unavailable [phone] Maryse Burton PA-C Unavailable [phone] Roopa Almonte MD Unavailable [phone] Griffin Joshi MD Unavailable Paula Reza MD Primary Care Provider Unavailabl e Roopa Almonte MD Unavailable [phone] Augustine Callaway MD Unavailable Daylin Ludwig Unavailable [phone] Daylin Ludwig Unavailable [phone] Marilin Montaño SYSTEMS MGR Unavailable [phone] Esha Dewitt MD Unavailable [phone] Heather Mosquera MD Unavailable [phone] Paula Reza MD Unavailable Unavailable Esha Dewitt MD Unavailable [phone] Valdo Escamilla-C Unavailable [phone] Nohelia AbarcaC Unavailable [phone] Heather Mosquera MD Unavailable [phone] Fawad York MD Unavailable [phone] Encounter Details Date Type Department Care Team (Late st Contact Info) Description 10/05/2022 MyC Medical Advice [facility] Gastro[facility]ology Clinic [address] 4th [place] [address] Amy De La Cruz Social [...] AM CDT Legal Sex Male 3:40 AM ADMINISTRATIVE PROJECT COORDINATOR Gender Identity Male 09/20/2020 8:37 AM [...] Optimize Self-Care Behaviors 90%(03/23/19 23 3:12 PM ADMINISTRATIVE PROJECT COORDINATOR) Angelita Diaz RD Note: I will [...] documented as of this encounter Care Teams Oem Sales Manager Relationship Specialty Start Date End Date Paula Reza MD [address] [facility] [address] [place] [address] PCP - General Internal Medicine 08/05/21 Roopa Almonte MD [address] [facility] 200 [place] [address] Endocrinology, Diabetes, and Metabolism 01/19/21 Maryse Burton, PAAna MariaC 5200 [place] [address] Physician President Financial Institution Dermatology 04/14/21 Roopa Almonte MD [address] [facility] 200 [place] [address] Hospitalist Endocrinology, Diabetes, and Metabolism 05/30/21 Grfifin Joshi MD [address] [facility] [address] [place] [address] Cardiovascular Disease 07/25/21 Roopa Almonte MD [address] [facility] 200 [place] [address] Assigned Endocrinology Provider 09/10/21 02/24/24 [place] [address] [facility] 300 [place] [address] Assigned Musculoskeletal Provider 10/15/21 04/26/23 Daylin Ludwig EP [facility] [address] [place] [address] Cardiac Rehabilitation Therapist 05/16/23 Daylin Ludwig EP [facility] [address] [place] [address] Cardiac Rehabilitation Therapist 06/08/22 06/09/23 Marilin Montaño, SYSTEMS MGR [address] [place] [address] Assigned Heart and Vascular Provider 08/05/22 02/24/24 Esha Dewitt MD 420 [facility] 36 [place] [address] Gastroenterology 09/06/22 Heather Mosquera MD [address] [place] [address] Internal Medicine 09/06/22 Paula Reza MD [place]IVE [place] 02/02/2024 Assigned PCP 09/09/22 01/05/23 Esha Dewitt MD [address] [place] [address] Assigned Gastroenterology Provider 09/23/22 04/26/24 Valdo Escamilla PA-C [address] [place] [address] Assigned Neuroscience Provider 09/30/22 04/26/24 Nohelia Abarca PA-C [address] [place] [address] Physician President Financial Institution Gastroenterology 10/03/22 Heather Mosquera MD [address] [address] Assigned PCP 01/06/23 Fawad York MD [address] [place] [address] Assigned Musculoskeletal Provider 04/27/23 06/25/23 documented as of this encounter
--- OUTSIDE RECORDS SUMMARY | 2024-11-02 15:14 | XMS_ITS | Encounter Summary ---
Author Organization [place] Address [address] [place] [address] Care Team Providers Care Machinery Cleaner Name Role Phone Roopa Almonte MD Unavailable [phone] Maryse Burton PA-C Unavailable [phone] Roopa Almonte MD Unavailable [phone] Griffin Joshi MD Unavailable Paula Reza MD Primary Care Provider Unavailabl e Roopa Almonte MD Unavailable [phone] Augustine Callaway MD Unavailable Daylin Ludwig Unavailable [phone] Daylin Ludwig Unavailable [phone] Marilin Montaño EQUIP MAINT ENG Unavailable [phone] Esha Dewitt MD Unavailable [phone] Heather Mosquera MD Unavailable [phone] Paula Reza MD Unavailable Unavailable Esha Dewitt MD Unavailable [phone] Valdo Escamilla-C Unavailable [phone] Nohelia AbarcaC Unavailable [phone] Heather Mosquera MD Unavailable Fawad York MD Unavailable Encounter Details Date Type Department Care Team (Late st Contact Info) Description 10/12/2022 [facility] Medical Advice [facility] Gastroenterology Clinic [place] [address] [facility] [address] 4th [place] [address] Esha Dewitt MD 420 [facility] 36 [place] [address] Social History Tobacco Use Types [...] AM CDT Legal Sex Male 3:40 AM SUPERVISOR REMELT Gender Identity Male 09/20/2020 8:37 AM CDT Sexual Orientation Straight 09/20/2020 8: 37 AM CDT 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 Not on [...] Optimize Self-Care Behaviors 90%(03/23/19 23 3:12 PM SUPERVISOR REMELT) Angelita Diaz RD Note: I will check [...] documented as of this encounter Care Teams Machinery Cleaner Relationship Specialty Start Date End Date Paula Reza MD [address] [facility] [address] [place] [address] PCP - General Internal Medicine 08/05/21 Roopa Almonte MD [address] [facility] 200 [place] [address] Endocrinology, Diabetes, and Metabolism 01/19/21 Maryse Burton, PAAna MariaC [address] [place], [place] [address] Physician Damage Cutter Dermatology 04/14/21 Roopa Almonte MD [address] [facility] 200 [place] [address] Hospitalist Endocrinology, Diabetes, and Metabolism 05/30/21 Griffin Joshi MD [address] [facility] [address] [place] [address] Cardiovascular Disease 07/25/21 Roopa Almonte MD [address] [place] [address] 200 [place], [place] [address] Assigned Endocrinology Provider 09/10/21 02/24/24 [place] [address] [facility] 300 [place] [address] Assigned Musculoskeletal Provider 10/15/21 04/26/23 Daylin Ludwig EP [facility] [address] [place] [address] Cardiac Rehabilitation Therapist 05/16/23 Daylin Ludwig, MIKI [facility] [address] [place] [address] Cardiac Rehabilitation Therapist 06/08/22 06/09/23 Marilin Montaño, EQUIP MAINT ENG [address] [place], [place] [address] Assigned Heart and Vascular Provider 08/05/22 02/24/24 Esha Dewitt MD 420 [facility] 36 [place], [place] [address] Gastroenterology 09/06/22 Heather Mosquera MD [address] [place] [address] Internal Medicine 09/06/22 Paula Reza MD [place]IVE [place] 02/02/2024 Assigned PCP 09/09/22 01/05/23 Esha Dewitt MD 420 [facility] 36 [place] [address] Assigned Gastroenterology Provider 09/23/22 04/26/24 aVldo Escamilla PA-C [address] [place] [address] Assigned Neuroscience Provider 09/30/22 04/26/24 Nohelia Abarca PA-C [address] [place] [address] Physician Damage Cutter Gastroenterology 10/03/22 Heather Mosquera MD [address] [place] [address] Assigned PCP 01/06/23 Fawad York MD [address] [place], [place] [address] Assigned Musculoskeletal Provider 04/27/23 06/25/23 documented as of this encounter
--- OUTSIDE RECORDS SUMMARY | 2024-11-02 15:15 | XMS_ITS | Encounter Summary ---
Author Organization [place] Address [address] [place] [address] Care Team Providers Care Solid Waste Disposal Manager Name Role Phone Roopa Almonte MD Unavailable [phone] Maryse BurtonC Unavailable [phone] Roopa Almonte MD Unavailable [phone] Griffin Joshi MD Unavailable Paula Reza MD Primary Care Provider Unavailabl e Roopa Almonte MD Unavailable [phone] Augustine Callaway MD Unavailable Daylin Ludwig Unavailable [phone] Daylin Ludwig Unavailable [phone] Marilin Montaño APPLIANCE REPAIR TECHNICIAN Unavailable [phone] Esha Dewitt MD Unavailable [phone] Heather Mosquera MD Unavailable [phone] Esha Dewitt MD Unavailable Valdo Escamilla PA-C Unavailable [phone] Nohelia Abarca-C Unavailable [phone] Heather Mosquera MD Unavailable Fawad York MD Unavailable [phone] Encounter Details Date Type Department Care Team (Late st Contact Info) Description 01/29/2023 MyC Medical Advice [facility] Gastroenterology Clinic [address] 4th [place] [phone] Rina Levin RN Social History Tobacco Use Types Packs/Day [...] CDT Legal Sex Male 3:40 AM TELEPHONE SALES AGENT Gender Identity Male 09/20/2020 8:37 AM CDT Sexual Orientation Straight 09/20/2020 8: 37 AM CDT 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 Not on file [...] Optimize Self-Care Behaviors 90%(03/23/19 23 3:12 PM TELEPHONE SALES AGENT) Angelita Diaz RD Note: I will check [...] documented as of this encounter Care Teams Solid Waste Disposal Manager Relationship Specialty Start Date End Date Paula Reza MD [address] [facility] [address] [place] [address] PCP - General Internal Medicine 08/05/21 Roopa Almonte MD [address] [facility] 200 [place] [address] Endocrinology, Diabetes, and Metabolism 01/19/21 Maryse Burton PA-C [address] [place] [address] Physician Administrative Specialist Dermatology 04/14/21 Roopa Almonte MD [address] [address] Hospitalist Endocrinology, Diabetes, and Metabolism 05/30/21 Griffin Joshi MD [address] [place] [id number] [place] [address] Cardiovascular Disease 07/25/21 Roopa Almonte MD [address] [place] [address] 200 [place] [address] Assigned Endocrinology Provider 09/10/21 02/24/24 [place] [address] [facility] 300 [place] [address] Assigned Musculoskeletal Provider 10/15/21 04/26/23 Daylin Ludwig EP [facility] [address] [place] [address] Cardiac Rehabilitation Therapist 05/16/23 Daylin Ludwig EP [facility] [address] [place] [address] Cardiac Rehabilitation Therapist 06/08/22 06/09/23 aMrilin Montaño CNP [address] [place] [address] Assigned Heart and Vascular Provider 08/05/22 02/24/24 Esha Dewitt MD 420 [facility] 36 [place] [address] Gastroenterology 09/06/22 Heather Mosquera MD [address] [place] [address] Internal Medicine 09/06/22 Esha Dewitt MD 420 [facility] 36 [place] [address] Assigned Gastroenterology Provider 09/23/22 04/26/24 Valdo Escamilla PA-C [address] [place] [address] Assigned Neuroscience Provider 09/30/22 04/26/24 Nohelia Abarca PA-C [address] [place] [address] Physician Administrative Specialist Gastroenterology 10/03/22 Heather Mosquera MD [address] [place] [address] Assigned PCP 01/06/23 Fawad York MD 909 [place] [address] Assigned Musculoskeletal Provider 04/27/23 06/25/23 documented as of this encounter
--- OUTSIDE RECORDS SUMMARY | 2024-11-02 15:15 | XMS_ITS | Encounter Summary ---
Author Organization [place] Address [address] [place] [address] Care Team Providers Care Vending Machine Attendant Name Role Phone Shahida Sutton APRN SHELL COREMAKER Primary Care Provi ford Unavailable Shahida Sutton APRN SHELL COREMAKER Unavailable Un available Carolynn Ramon RN Unavailable [phone] Augustine Callaway MD Unavailable Brady Lion MD Unavailable Un available Nima France-C Unavailable [phone] Camille Chandler PA-C Unavailable [phone] Anabela Barakat APRN SHELL COREMAKER Unavailable Nima France PA-C Unavailable [phone] Basilio Morillo DO Unavailable Fawad York MD Unavailable [phone] Roopa Almonte MD Unavailable Augustine Callaway MD Unavailable Maryse Burton PA-C Unavailable Marquita Starkey MD Unavailable [phone] Roopa Almonte MD Unavailable [phone] Griffin Joshi MD Unavailable + Rina Magallon RN Unavailable [phone] Paula Reza MD Primary Care Provider UnavailGriffin Youssef MD Unavailable Roopa Almonte MD Unavailable [phone] [facility] hospital[facility]ilio stiles Unavailable Lydia Bernstein-C Unavailable Rosa Maria Love Unavailable [phone] Augustine Callaway MD Unavailable Paula Reza MD Unavailable Unavailable Keerthi Miner APRN SHELL COREMAKER Unavailable [phone] Herman, Shahida Cummings APRN SHELL COREMAKER Unavailable Un available Porsha Michaels APRN SHELL COREMAKER Unavailable + Paula Reza MD Unavailable Unavailable Herman, Shahida Cummings APRN SHELL COREMAKER Unavailable Un available Daylin Ludwig Unavailable [phone] Laurel Velasquez MD Unavailable [phone] Daylin Ludwig Unavailable [phone] Paula Reza MD Unavailable Unavailable Porsha Michaels APRN SHELL COREMAKER Unavailable + Laurel Velasquez MD Unavailable + [phone] HermanShahida huerta APRN SHELL COREMAKER Unavailable Un available Marilin Montaño SHELL COREMAKER Unavailable [phone] Esha Dewitt MD Unavailable + [phone] Heather Mosquera MD Unavailable [phone] Paula Reza MD Unavailable Unavailable Esha Dewitt MD Unavailable [phone] Valdo Escamilla PA-C Unavailable [phone] Nohelia Abarca PA-C Unavailable [phone] Heather Mosquera MD Unavailable [phone] Fawad York MD Unavailable [phone] Reason for Visit * Reason Comments Medication Refill Encounter Details Date Type Department Care Team (Late st Contact Info) Description 03/31/[address] [address] Shahida Sutton APRN SHELL COREMAKER Medication Refill Social History Tobacco Use Types [...] AM CDT Legal Sex Male 3:40 AM MICROBIOLOGY SOIL SCIENTIST Gender Identity Male 09/20/2020 8:37 AM CDT Sexual Orientation Straight 09/20/2020 8: 37 AM CDT 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 on file Not on jabier e documented as of this encounter Miscellaneous Notes * Telephone Encounter - Paige Mena RN - 03/31/2020 11:32 AM MICROBIOLOGY SOIL SCIENTIST Routing refill request to provider for review/approval because: Drug not on the [facility] refill protocol Paige Mena RN OBIOLOGY SOIL SCIENTIST documented in this encounter Plan of Treatment [...] documented as of this encounter Care Teams Vending Machine Attendant Relationship Specialty Start Date End Date Shahida Sutton APRN SHELL COREMAKER PCP - General Nurse Practitioner 08/17/14 08/04/21 Paula Reza MD PCP - General Internal Medicine 08/05/21 Shahida Sutton APRN SHELL COREMAKER Assigned PCP 07/12/14 09/30/21 Carolynn Ramon RN Personal Advocate & Liaison (PAL) 12/17/18 08/07/21 [place] [address] [place] [address] Assigned Musculoskeletal Provider 12/26/19 08/21/20 Brady Lion MD Assigned Heart and Vascular Provider 12/26/19 08/14/20 Nima France PA-C [address] [place] [address] Assigned Surgical Provider 05/19/20 08/21/20 Camille Chandler PA-C [address] [place] [address] Assigned Neuroscience Provider 05/19/20 09/14/20 Anabela Barakat APRN SHELL COREMAKER 1700 [place] [address] Assigned Heart and Vascular Provider 08/15/20 08/05/21 Nima France PA-C 6545 [facility] 450 [place], [place] [address] Assigned Musculoskeletal Provider 08/22/20 11/13/20 [place] [address] [place], [place] [address] Assigned Musculoskeletal Provider 11/14/20 12/04/20 Fawad York MD 909 [place], [place] [address] Assigned Musculoskeletal Provider 12/05/20 02/05/21 Roopa Almonte MD [address] [facility] 200 [place] [address] Endocrinology, Diabetes, and Metabolism 01/19/21 [place] [address] [facility] 300 [place] [address] Assigned Musculoskeletal Provider 02/06/21 09/16/21 Maryse Burton PA-C 5200 [place] [address] Physician U.[employer]. Revenue Officer Dermatology 04/14/21 Marquita Starkey MD [address] [facility] 200 [place], [place] [address] Internal Medicine 05/06/21 05/06/21 Roopa Almonte MD [address] [facility] 200 [place], [place] [address] Hospitalist Endocrinology, Diabetes, and Metabolism 05/30/21 Griffin Joshi MD [address] [facility] [address] [place] [address] Cardiovascular Disease 07/25/21 Rina Magallon, RN Lead Application Integration Specialist 07/29/21 07/11/22 Griffin Joshi MD [address] [facility] [address] [place] [address] Assigned Heart and Vascular Provider 08/06/21 10/07/21 Roopa Almonte MD [address] [facility] 200 [place] [address] Assigned Endocrinology Provider 09/10/21 02/24/24 [place] [address] [facility] [place] [address] Assigned Musculoskeletal Provider 09/17/21 10/14/21 Lydia Bernstein PA-C [address] [facility] 150 [place] [address] Assigned PCP 10/01/21 10/21/21 Rosa Maria Love CHW Community Health Worker 10/06/21 07/11/22 [place] [address] [place] [address] Assigned Musculoskeletal Provider 10/15/21 04/26/23 Paula Reza MD I[place]CTIVE IN [place] 02/02/2024 Assigned PCP 10/22/21 12/23/21 Keerthi Miner APRN SHELL COREMAKER [address] [place] [address] Assigned Heart and Vascular Provider 10/08/21 02/10/22 Shahida Sutton APRN SHELL COREMAKER Assigned PCP 12/24/21 03/24/22 Porsha Michaels APRN SHELL COREMAKER [address] [place] [address] Assigned Heart and Vascular Provider 02/11/22 05/12/22 Paula Reza MD [place]IVE IN [place] 02/02/2024 Assigned PCP 03/25/22 04/07/22 Shahida Sutton APRN SHELL COREMAKER [address] [place] [address] Assigned PCP 04/08/22 06/30/22 Daylin Ludwig, MIKI [facility] [address] [place] [address] Cardiac Rehabilitation Therapist 05/16/23 Laurel Velasquez MD [address] [place] [address] Assigned Heart and Vascular Provider 05/13/22 06/30/22 Daylin Ludwig EP [facility] [address] [place] [address] Cardiac Rehabilitation Therapist 06/08/22 06/09/23 Paula Reza MD INACTIVE IN [place] 02/02/2024 Assigned PCP 07/01/22 07/07/22 Porsha Michaels APRN SHELL COREMAKER [address] [place] [address] Assigned Heart and Vascular Provider 07/01/22 07/07/22 Laurel Velasquez MD [address] [place] [address] Assigned Heart and Vascular Provider 07/08/22 08/04/22 Shahida Sutton APRN SHELL COREMAKER Assigned PCP 07/08/22 09/08/22 Marilin Montaño, SHELL COREMAKER [address] [place] [address] Assigned Heart and Vascular Provider 08/05/22 02/24/24 Esha Dewitt MD 420 [facility] 36 [place], [place] [address] Gastroenterology 09/06/22 Heather Mosquera MD [address] [place] [address] Internal Medicine 09/06/22 Paula Reza MD INACTIVE IN [place] 02/02/2024 Assigned PCP 09/09/22 01/05/23 Esha Dewitt MD [address] [address] Assigned Gastroenterology Provider 09/23/22 04/26/24 Valdo Escamilla PA-C [address] [place] [address] Assigned Neuroscience Provider 09/30/22 04/26/24 Nohelia Abarca PA-C [address] [place] [address] Physician U.[employer]. Revenue Officer Gastroenterology 10/03/22 Heather Mosquera MD [address] [place] [address] Assigned PCP 01/06/23 Fawad York MD [address] [facility] [place] [place] [address] Assigned Musculoskeletal Provider 04/27/23 06/25/23 documented as of this encounter
--- OUTSIDE RECORDS SUMMARY | 2024-11-02 15:15 | XMS_ITS ---
Author Organization [place] Address [address] [place] [address] Care Team Providers Care Clinical Lab Specialist Name Role Phone Roopa Almonte MD Unavailable Maryse Burton PA-C Unavailable Roopa Almonte MD Unavailable Griffin Joshi MD Unavailable Paula Reza MD Primary Care Provider UnavailDaylin Olsen Unavailable Esha Dewitt MD Unavailable [phone] Heather Mosquera MD Unavailable Nohelia Abarca PA-C Unavailable [phone] Heather Mosquera MD Unavailable [phone] Diabetes Self-Management Education Status:Enrolled (Active) Start date:01/19/2022 Enrollment date:02/23/2022 Current support & services provided:Type 2 Diabetes Management, Individual Education Continued Care and Services Coordination
--- OUTSIDE RECORDS SUMMARY | 2024-11-02 15:15 | XMS_ITS | Encounter Summary ---
Author Organization [place] Address [address] [place] [address] Care Team Providers Care Healthcare Advisory Services Manager Name Role Phone Mingo Aldana MD Primary Car e Provider HermanShahida APRN SENIOR TECH MANUFACTURING ENGINEERING Primary Care Provi ford Unavailable Herman, Shahida Cummings APRN SENIOR TECH MANUFACTURING ENGINEERING Unavailable Un available Herman, Shahida Cummings APRN SENIOR TECH MANUFACTURING ENGINEERING Unavailable Un available aCrolynn Ramon RN Unavailable [phone] Augustine Callaway MD Unavailable Brady Lion MD Unavailable Un available Nima FranceC Unavailable [phone] Camille Chandler-C Unavailable [phone] Anabela Barakat APRN SENIOR TECH MANUFACTURING ENGINEERING Unavailable Nima FranceC Unavailable [phone] Basilio Morillo DO Unavailable [phone] Fawad York MD Unavailable [phone] Roopa Almonte MD Unavailable [phone] Augustine Callaway MD Unavailable Maryse Burton PA-C Unavailable [phone] Marquita Starkey MD Unavailable [phone] Roopa Almonte MD Unavailable [phone] Griffin Joshi MD Unavailable Rina Magallon RN Unavailable [phone] Paula Reza MD Primary Care Provider UnavailGriffin Youssef MD Unavailable Roopa Almonte MD Unavailable [phone] [facility] Naik Unavailable Lydia Bernstein PA-C Unavailable Rosa Maria Love Unavailable [phone] Augustine Callaway MD Unavailable Paula Reza MD Unavailable Unavailable Keerthi Miner APRN SENIOR TECH MANUFACTURING ENGINEERING Unavailable [phone] Herman, Shahida Cummings APRN SENIOR TECH MANUFACTURING ENGINEERING Unavailable Un available Porsha Michaels APRN SENIOR TECH MANUFACTURING ENGINEERING Unavailable [phone] Paula Reza MD Unavailable Unavailable Herman, Shahida Cummings APRN SENIOR TECH MANUFACTURING ENGINEERING Unavailable Un available Daylin Ludwig Unavailable [phone] Laurel Velasquez MD Unavailable [phone] Daylin Ludwig Unavailable [phone] Paula Reza MD Unavailable Unavailable Porsha Michaels APRN SENIOR TECH MANUFACTURING ENGINEERING Unavailable [phone] Laurel Velasquez MD Unavailable [phone] Shahida Sutton APRN SENIOR TECH MANUFACTURING ENGINEERING Unavailable Un available Marilin Montaño SENIOR TECH MANUFACTURING ENGINEERING Unavailable [phone] Esha Dewitt MD Unavailable [phone] Heather Mosquera MD Unavailable [phone] Paula Reza MD Unavailable Unavailable Esha Dewitt MD Unavailable [phone] Valdo Escamilla PA-C Unavailable Nohelia Abarca PA-C Unavailable [phone] Heather Mosquera MD Unavailable Fawad York MD Unavailable Reason for Visit * Reason Onset Date Comments Refill Request 10/15/2012 Encounter Details Date Type Department Care Team (Late st Contact Info) Description 10/15/2012 MyC Refill [facility] Mental Health & Addiction [address] [address] Kavon Garrido MD [address] [facility] [address] [place], [place] [address] Refill Request Social History Tobacco Use Types Packs/Day Years Used Date Smoking Tobacco: Former Cigarettes Q uit: 12/09/2006 Cigars Smokeless Tobacco: Never Alcohol Use Standard Drinks/Week Comments Yes 0 (1 standard drink = 0.6 oz pur e alcohol) Very Occasionally Sex and Gender Information Value Date Recorded Sex Assigned at Male 09/20/2020 8:37 AM CDT 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 Gender Identity Male 09/20/2020 8:37 AM CDT Sexual Orientation Straight 09/20/2020 8: 37 AM CDT documented as of this encounter Miscellaneous Notes * Telephone Encounter - Tabitha Zarate RN - 10/15/2012 4:24 PM CDTMessage from MyChart: Tabitha Farrell RN [facility] Oct 15, 2012 4:23 PM ----- Message ----- From: Mauro Terrell Sent: 10/15/2012 4:22 PM To: Psychiatry Nurses-[facility] Subject: Medication Renewal Request Original authorizing provider: Kavon Garrido MD, MD Mauro Terrell would like a refill of the following medications: zolpidem (AMBIEN CR) 12.5 MG CR tablet [Kavon Garrido MD, MD] Preferred pharmacy: [id number] [id number] R[address] Calderon Comment: Dr. Garrido, we have an appt scheduled next week. In you have any concerns I can be contacted at [phone]. 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/2020 2:32 PM SLIP SHEETER Rule Out COVID-19 01/05/2021 01/05/2021 01/06/2021 12:57 PM CDT ESBL 01/05/2021 01/05/2021 Rule Out COVID-19 06/30/2021 06/30/2021 07/01/2021 9:34 AM CDT Rule Out COVID-19 07/25/2021 07/25/2021 07/25/2021 8:02 PM CDT documented as of this encounter Care Teams Healthcare Advisory Services Manager Relationship Specialty Start Date End Date Mingo Aldana MD PCP - General Family Practice 07/22/09 07/12/14 Shahida Sutton APRN SENIOR TECH MANUFACTURING ENGINEERING PCP - General Nurse Practitioner 08/17/14 08/04/21 Shahida Sutton APRN SENIOR TECH MANUFACTURING ENGINEERING PCP - Assigned PCP 07/12/14 05/07/18 Paula Reza MD PCP - General Internal Medicine 08/05/21 Shahida Sutton APRN SENIOR TECH MANUFACTURING ENGINEERING Assigned PCP 07/12/14 09/30/21 Carolynn Ramon RN Personal Advocate & Liaison (PAL) 12/17/18 08/07/21 [place] [address] [place] [address] Assigned Musculoskeletal Provider 12/26/19 08/21/20 Brady Lion MD Assigned Heart and Vascular Provider 12/26/19 08/14/20 Nima France PA-C [address] [place] [address] Assigned Surgical Provider 05/19/20 08/21/20 Camille Chandler PA-C [address] [place] [address] Assigned Neuroscience Provider 05/19/20 09/14/20 Anabela Barakat APRN SENIOR TECH MANUFACTURING ENGINEERING [address] [place] [address] Assigned Heart and Vascular Provider 08/15/20 08/05/21 Nima France PA-C [address] [address] Assigned Musculoskeletal Provider 08/22/20 11/13/20 [place] [address] [facility] [place] [id number] Assigned Musculoskeletal Provider 11/14/20 12/04/20 Fawad York MD [address] [place] [address] 677235 Assigned Musculoskeletal Provider 12/05/20 02/05/21 Roopa Almonte MD [address] [facility] [address] [place] [address] Endocrinology, Diabetes, and Metabolism 01/19/21 [place] [address] [facility] [address] [place] [address] Assigned Musculoskeletal Provider 02/06/21 09/16/21 Maryse Burton PA-C [address] [place] [address] Physician Poiser Dermatology 04/14/21 Marquita Starkey MD [address] [facility] [address] [place] [address] Internal Medicine 05/06/21 05/06/21 Roopa Almonte MD [address] [facility] [address] [place] [address] Hospitalist Endocrinology, Diabetes, and Metabolism 05/30/21 Griffin Joshi MD [address] [facility] [address] [place] [address] Cardiovascular Disease 07/25/21 Rina Magallon, RN Lead Director Facilities Maintenance 07/29/21 07/11/22 Griffin Joshi MD [address] [facility] [address] [place] [address] Assigned Heart and Vascular Provider 08/06/21 10/07/21 Roopa Almonte MD [address] [place] [address] 200 [place] [address] Assigned Endocrinology Provider 09/10/21 02/24/24 [place] [address] [facility] [place] [address] Assigned Musculoskeletal Provider 09/17/21 10/14/21 Lydia Bernstein PA-C [address] [place] [address] Assigned PCP 10/01/21 10/21/21 Rosa Maria Love Cristina Community Health Worker 10/06/21 [place] [address] [facility] [address] [place] [address] Assigned Musculoskeletal Provider 10/15/21 04/26/23 Paula Reza MD [place] 02/02/2024 Assigned PCP 10/22/21 12/23/21 Keerthi Miner APRN SENIOR TECH MANUFACTURING ENGINEERING [address] [place] [id number] Assigned Heart and Vascular Provider 10/08/21 02/10/22 Shahida Sutton APRN SENIOR TECH MANUFACTURING ENGINEERING Assigned PCP 12/24/21 03/24/22 Porsha Michaels APRN SENIOR TECH MANUFACTURING ENGINEERING [address] [place] [address] Assigned Heart and Vascular Provider 02/11/22 05/12/22 Paula Reza MD [place] 02/02/2024 Assigned PCP 03/25/22 04/07/22 Shahida Sutton APRN SENIOR TECH MANUFACTURING ENGINEERING [address] [place] [address] Assigned PCP 04/08/22 06/30/22 Daylin Ludwig, [facility] [address] [place] [address] Cardiac Rehabilitation Therapist 05/16/23 Laurel Velasquez MD [address] [place] [address] Assigned Heart and Vascular Provider 05/13/22 06/30/22 Daylin Ludwig, [facility] [address] [place] [address] Cardiac Rehabilitation Therapist 06/08/22 06/09/23 Paula Reza MD [place] 02/02/2024 Assigned PCP 07/01/22 07/07/22 Porsha Michaels APRN SENIOR TECH MANUFACTURING ENGINEERING [address] [place] [address] Assigned Heart and Vascular Provider 07/01/22 07/07/22 Laurel Velasquez MD [address] [place] [address] Assigned Heart and Vascular Provider 07/08/22 08/04/22 Shahida Sutton APRN SENIOR TECH MANUFACTURING ENGINEERING Assigned PCP 07/08/22 09/08/22 Marilin Montaño, SENIOR TECH MANUFACTURING ENGINEERING [address] [place] [address] Assigned Heart and Vascular Provider 08/05/22 02/24/24 Esha Dewitt MD [address] [address] Gastroenterology 09/06/22 Heather Mosquera MD [address] [place], [place] [address] Internal Medicine 09/06/22 Paula Reza MD [place] 02/02/2024 Assigned PCP 09/09/22 01/05/23 Esha Dewitt MD [address] [address] Assigned Gastroenterology Provider 09/23/22 04/26/24 Valdo Escamilla PA-C [address] [place] [address] Assigned Neuroscience Provider 09/30/22 04/26/24 Nohelia Abarca PA-C [address] [place] [address] Physician Poiser Gastroenterology 10/03/22 Heather Mosquera MD [address] [place] [address] Assigned PCP 01/06/23 Fawad York MD [address] [place] [address] Assigned Musculoskeletal Provider 04/27/23 06/25/23 documented as of this encounter
--- OUTSIDE RECORDS SUMMARY | 2024-11-02 15:15 | XMS_ITS | Encounter Summary ---
Author Organization [place] Address [address] [place] [address] Care Team Providers Care Diamond Sizer And Sorter Name Role Phone Shahida Sutton APRN ERP IMPLEMENTATION CONSULTANT Primary Care Provi ford Unavailable Shahida Sutton APRN ERP IMPLEMENTATION CONSULTANT Unavailable Un available Carolynn Ramon RN Unavailable [phone] Augustine Callaway MD Unavailable Brady Lion MD Unavailable Un available Nima France-C Unavailable [phone] Camille Chandler PA-C Unavailable [phone] Anabela Barakat APRN ERP IMPLEMENTATION CONSULTANT Unavailable Nima France PA-C Unavailable [phone] Basilio Morillo DO Unavailable Fawad York MD Unavailable Roopa Almonte MD Unavailable [phone] Augustine Callaway MD Unavailable Maryse Burton PA-C Unavailable Marquita Starkey MD Unavailable [phone] Roopa Almonte MD Unavailable [phone] Griffin Joshi MD Unavailable + Rina Magallon RN Unavailable [phone] Paula Reza MD Primary Care Provider UnavailGriffin Youssef MD Unavailable Roopa Almonte MD Unavailable [phone] [facility] Unavailable Lydia Bernstein-C Unavailable Rosa Maria Love Unavailable [phone] Augustine Callaway MD Unavailable Paula Reza MD Unavailable Unavailable Keerthi Miner APRN ERP IMPLEMENTATION CONSULTANT Unavailable [phone] Herman, Shahida Cummings APRN ERP IMPLEMENTATION CONSULTANT Unavailable Un available Porsha Michaels APRN ERP IMPLEMENTATION CONSULTANT Unavailable + Paula Reza MD Unavailable Unavailable Herman, Shahida Cummings APRN ERP IMPLEMENTATION CONSULTANT Unavailable Un available Daylin Ludwig Unavailable [phone] Laurel Velasquez MD Unavailable [phone] Daylin Ludwig Unavailable [phone] Paula Reza MD Unavailable Unavailable Porsha Michaels APRN ERP IMPLEMENTATION CONSULTANT Unavailable + Laurel Velasquez MD Unavailable + [phone] HermanShahida huerta APRN ERP IMPLEMENTATION CONSULTANT Unavailable Un available Marilin Montaño ERP IMPLEMENTATION CONSULTANT Unavailable [phone] Esha Dewitt MD Unavailable + [phone] Heather Mosquera MD Unavailable [phone] Paula Reza MD Unavailable Unavailable Esha Dewitt MD Unavailable [phone] Valdo Escamilla PA-C Unavailable Nohelia Abarca PA-C Unavailable [phone] Heather Mosuqera MD Unavailable [phone] Fawad York MD Unavailable [phone] Encounter Details Date Type Department Care Team (Late st Contact Info) Description 02/10/2020 MyC Medical Advice [facility] [id number] [place] [address] [address] [place] [id number] Rina Winkler RN Social History Tobacco Use [...] AM CDT Legal 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 No / Unsure 02/06/2020 8:12 AM TRACK WELDER documented as of this encounter Plan of Treatment Not on file documented as of this encounter Visit Diagnoses Not on filedocumented in this encounter Additional Health Concerns Infection Onset Date Last Indicated Resolved Time Rule Out COVID-19 02/15/2020 02/15/2020 02/16/2020 2:32 PM TRACK WELDER Rule Out COVID-19 01/05/2021 01/05/2021 01/06/2021 12:57 PM CDT ESBL 01/05/2021 01/05/2021 Rule Out COVID-19 06/30/2021 06/30/2021 07/01/2021 9:34 AM CDT Rule Out COVID-19 07/25/2021 07/25/2021 07/25/2021 8:02 PM CDT Assessment Noted Time PHQ-9 Depression Total Score: 7 08/13/19 20 1:22 PM CDT documented as of this encounter Care Teams Diamond Sizer And Sorter Relationship Specialty Start Date End Date Shahida Sutton APRN ERP IMPLEMENTATION CONSULTANT PCP - General Nurse Practitioner 08/17/14 08/04/21 Paula Reza MD PCP - General Internal Medicine 08/05/21 Shahida Sutton APRN ERP IMPLEMENTATION CONSULTANT Assigned PCP 07/12/14 09/30/21 Carolynn Ramon RN Personal Advocate & Liaison (PAL) 12/17/18 08/07/21 [place] [address] [place] [address] Assigned Musculoskeletal Provider 12/26/19 08/21/20 Brady Lion MD Assigned Heart and Vascular Provider 12/26/19 08/14/20 Nima France PA-C [address] [facility] [address] [place] [address] Assigned Surgical Provider 05/19/20 08/21/20 Camille Chandler PA-C [address] [facility] [address] [place] [address] Assigned Neuroscience Provider 05/19/20 09/14/20 Anabela Barakat APRN ERP IMPLEMENTATION CONSULTANT [address] [place] [address] Assigned Heart and Vascular Provider 08/15/20 08/05/21 Nima France PA-C [address] [place] [address] Assigned Musculoskeletal Provider 08/22/20 11/13/20 [place] [address] [facility] [place] [address] Assigned Musculoskeletal Provider 11/14/20 12/04/20 Fawad York MD [address] [place], [place] [address] Assigned Musculoskeletal Provider 12/05/20 02/05/21 Roopa Almonte MD [address] [place] [address] Endocrinology, Diabetes, and Metabolism 01/19/21 [place] [address] [facility] [address] [place] [address] Assigned Musculoskeletal Provider 02/06/21 09/16/21 Maryse Burton, PAAna MariaC [address] [place] [address] Physician Financial Management Dermatology 04/14/21 Marquita Starkey MD [address] [place] [address] Internal Medicine 05/06/21 05/06/21 Roopa Almonte MD [address] [place] [address] Hospitalist Endocrinology, Diabetes, and Metabolism 05/30/21 Griffin Joshi MD [address] [place] [address] Cardiovascular Disease 07/25/21 Rina Magallon, RN Lead Commercial Artist 07/29/21 07/11/22 Griffin Joshi MD [address] [facility] [address] [place] [address] Assigned Heart and Vascular Provider 08/06/21 10/07/21 Roopa Almonte MD [address] [facility] [address] [place] [address] Assigned Endocrinology Provider 09/10/21 02/24/24 [place] [address] [facility] [place] [address] Assigned Musculoskeletal Provider 09/17/21 10/14/21 Lydia Bernstein PA-C [address] [facility] [address] [place] [address] Assigned PCP 10/01/21 10/21/21 Rosa Maria Love Cristina Community Health Worker 10/06/21 07/11/22 [place] [address] [address] [facility] [address] [place] [address] Assigned Musculoskeletal Provider 10/15/21 04/26/23 Paula Reza MD [place]IVE IN [place] 02/02/2024 Assigned PCP 10/22/21 12/23/21 Keerthi Miner APRN ERP IMPLEMENTATION CONSULTANT [address] [place] [address] Assigned Heart and Vascular Provider 10/08/21 02/10/22 Shahida Sutton APRN ERP IMPLEMENTATION CONSULTANT Assigned PCP 12/24/21 03/24/22 Porsha Michaels APRN ERP IMPLEMENTATION CONSULTANT [address] [place] [address] Assigned Heart and Vascular Provider 02/11/22 05/12/22 Paula Reza MD [place] IN [place] 02/02/2024 Assigned PCP 03/25/22 04/07/22 Shahida Sutton APRN ERP IMPLEMENTATION CONSULTANT [address] [place] [address] Assigned PCP 04/08/22 06/30/22 Daylin Ludwig, EP [facility] [address] [place] [address] Cardiac Rehabilitation Therapist 05/16/23 Laurel Velasquez MD [address] [place] [address] Assigned Heart and Vascular Provider 05/13/22 06/30/22 Daylin Ludwig, EP [facility] [address] [place] [address] Cardiac Rehabilitation Therapist 06/08/22 06/09/23 Paula Reza MD [place] 02/02/2024 Assigned PCP 07/01/22 07/07/22 Porsha Michaels APRN ERP IMPLEMENTATION CONSULTANT [address] [place] [address] Assigned Heart and Vascular Provider 07/01/22 07/07/22 Laurel Velasquez MD [address] [place] [address] Assigned Heart and Vascular Provider 07/08/22 08/04/22 Shahida Sutton, WAFER SUBSTRATE TESTER ERP IMPLEMENTATION CONSULTANT Assigned PCP 07/08/22 09/08/22 Marilin Montaño, ERP IMPLEMENTATION CONSULTANT [address] [place] [address] Assigned Heart and Vascular Provider 08/05/22 02/24/24 Esha Dewitt MD [address] [facility] [address] [place] [address] Gastroenterology 09/06/22 Heather Mosquera MD [address] [place] [address] Internal Medicine 09/06/22 Paula Reza MD [place] IN [place] 02/02/2024 Assigned PCP 09/09/22 01/05/23 Esha Dewitt MD [address] [facility] [address] [place], [place] [address] Assigned Gastroenterology Provider 09/23/22 04/26/24 Valdo Escamilla PA-C [address] [place] [address] Assigned Neuroscience Provider 09/30/22 04/26/24 Nohelia Abarca PA-C [address] [place] [address] Physician Financial Management Gastroenterology 10/03/22 Heather Mosquera MD [address] [place] [address] Assigned PCP 01/06/23 Fawad York MD [address] [place], [place] [address] Assigned Musculoskeletal Provider 04/27/23 06/25/23 documented as of this encounter
--- OUTSIDE RECORDS SUMMARY | 2024-11-02 15:15 | XMS_ITS | Encounter Summary ---
Author Organization [facility] Address [address] [place] [address] Care Team Providers Care Cage Supervisor Name Role Phone Mingo Aldana MD Primary Car e Provider HermanShahida APRN CHIEF VENDOR QUALITY Primary Care Provi ford Unavailable Herman, Shahida Cummings APRN CHIEF VENDOR QUALITY Unavailable Un available Herman, Shahida Cummings APRN CHIEF VENDOR QUALITY Unavailable Un available Carolynn Ramon RN Unavailable [phone] Augustine Callaway MD Unavailable Brady Lion MD Unavailable Un available Nima FranceC Unavailable [phone] Camille Chandler-C Unavailable [phone] Anabela Barakat APRN CHIEF VENDOR QUALITY Unavailable Nima FranceC Unavailable [phone] Basilio Morillo DO Unavailable [phone] Fawad York MD Unavailable [phone] Roopa Almonte MD Unavailable [phone] Augustine Callaway MD Unavailable Maryse Burton PA-C Unavailable [phone] Marquita Starkey MD Unavailable [phone] Roopa Almonte MD Unavailable [phone] Griffin Joshi MD Unavailable Rina Magallon RN Unavailable [phone] Paula Reza MD Primary Care Provider UnavailGriffin Youssef MD Unavailable Roopa Almonte MD Unavailable [phone] [facility] Naik Unavailable Lydia Bernstein PA-C Unavailable Rosa Maria Love Unavailable [phone] Augustine Callaway MD Unavailable Paula Reza MD Unavailable Unavailable Keerthi Miner APRN CHIEF VENDOR QUALITY Unavailable +[phone] Herman, Shahida Cummings APRN CHIEF VENDOR QUALITY Unavailable Un available Porsha Michaels APRN CHIEF VENDOR QUALITY Unavailable [phone] Paula Reza MD Unavailable Unavailable Herman, Shahida Cummings APRN CHIEF VENDOR QUALITY Unavailable Un available Daylin Ludwig Unavailable [phone] Laurel Velasquez MD Unavailable [phone] Daylin Ludwig Unavailable [phone] Paula Reza MD Unavailable Unavailable Porsha Michaels APRN CHIEF VENDOR QUALITY Unavailable [phone] Laurel Velasquez MD Unavailable [phone] Shahida Sutton APRN CHIEF VENDOR QUALITY Unavailable Un available Marilin Montaño CHIEF VENDOR QUALITY Unavailable [phone] Esha Dewitt MD Unavailable [phone] Heather Mosquera MD Unavailable [phone] Paula Reza MD Unavailable Unavailable Esha Dewitt MD Unavailable [phone] Valdo Escamilla PA-C Unavailable +[phone] Nohelia Abarca PA-C Unavailable [phone] Heather Mosquera MD Unavailable [phone] Fawad York MD Unavailable [phone] Encounter Details Date Type Department Care Team (Late st Contact Info) Description 03/27/2013 MyC Medical Advice [address] [address] Brenda Nicolas MA Social History Tobacco Use Types Packs/Day Years Used Date Smoking Tobacco: Former Cigarettes Q uit: 12/09/2006 Cigars Smokeless Tobacco: Never Alcohol Use Standard Drinks/Week Comments Yes 0 (1 standard drink = 0.6 oz pur e alcohol) Very Occasionally Sex and Gender Information Value Date Recorded Sex Assigned at Male 09/20/2020 8:37 AM CDT Legal 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 Gender Identity Male 09/20/2020 8:37 AM CDT Sexual Orientation Straight 09/20/2020 8: 37 AM CDT 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 file Not on file Not on jabier e documented as of this encounter Plan of Treatment Not on file documented as of this encounter Visit Diagnoses Not on filedocumented in this encounter Additional Health Concerns Infection Onset Date Last Indicated Resolved Time Rule Out COVID-19 02/15/2020 02/15/2020 02/16/2020 2:32 PM INSTRUMENTS SALES REPRESENTATIVE Rule Out COVID-19 01/05/2021 01/05/2021 01/06/2021 12:57 PM CDT ESBL 01/05/2021 01/05/2021 Rule Out COVID-19 06/30/2021 06/30/2021 07/01/2021 9:34 AM CDT Rule Out COVID-19 07/25/2021 07/25/2021 07/25/2021 8:02 PM CDT documented as of this encounter Care Teams Cage Supervisor Relationship Specialty Start Date End Date Mingo Aldana MD PCP - General Family Practice 07/22/09 07/12/14 Shahida Sutton APRN CHIEF VENDOR QUALITY PCP - General Nurse Practitioner 08/17/14 08/04/21 Shahida Sutton APRN CHIEF VENDOR QUALITY PCP - Assigned PCP 07/12/14 05/07/18 Paula Reza MD PCP - General Internal Medicine 08/05/21 Shahida Sutton APRN CHIEF VENDOR QUALITY Assigned PCP 07/12/14 09/30/21 Carolynn Ramon RN Personal Advocate & Liaison (PAL) 12/17/18 08/07/21 [place] [address] [place] [address] Assigned Musculoskeletal Provider 12/26/19 08/21/20 Brady Lion MD Assigned Heart and Vascular Provider 12/26/19 08/14/20 Nima France PA-C [address] [place] [address] Assigned Surgical Provider 05/19/20 08/21/20 Camille Chandler PA-C [address] [place] [address] Assigned Neuroscience Provider 05/19/20 09/14/20 Anabela Barakat APRN CHIEF VENDOR QUALITY [address] [place] [address] Assigned Heart and Vascular Provider 08/15/20 08/05/21 Nima France PA-C [address] [facility] [address] [place] [address] Assigned Musculoskeletal Provider 08/22/20 11/13/20 [place] [address] [facility] [place] [address] Assigned Musculoskeletal Provider 11/14/20 12/04/20 Fawad York MD [address] [place], [place] [address] Assigned Musculoskeletal Provider 12/05/20 02/05/21 Roopa Almonte MD [address] [employer] [facility] [address] [place] [address] Endocrinology, Diabetes, and Metabolism 01/19/21 [place] [address] [facility] [address] [place] [address] Assigned Musculoskeletal Provider 02/06/21 09/16/21 Maryse Burton PA-C [address] [place] [address] Physician Marketing Summer Intern Dermatology 04/14/21 Marquita Starkey MD [address] [facility] [address] [place], [place] [address] Internal Medicine 05/06/21 05/06/21 Roopa Almonte MD [address] [facility] [address] [place], [place] [address] Hospitalist Endocrinology, Diabetes, and Metabolism 05/30/21 Griffin Joshi MD [address] [facility] [address] [place] [address] Cardiovascular Disease 07/25/21 Rina Magallon, RN Lead Remelt Worker 07/29/21 07/11/22 Griffin Joshi MD [address] [place] [address] Assigned Heart and Vascular Provider 08/06/21 10/07/21 Roopa Almonte MD [address] [place] [address] 200 [place], [place] [address] Assigned Endocrinology Provider 09/10/21 02/24/24 [place] [address] [facility] [place] [address] Assigned Musculoskeletal Provider 09/17/21 10/14/21 Lydia Bernstein PA-C [address] [facility] [address] [place] [address] Assigned PCP 10/01/21 10/21/21 Rosa Maria Love CHW Community Health Worker 10/06/21 [place] [address] [facility] [address] [place] [address] Assigned Musculoskeletal Provider 10/15/21 04/26/23 Paula Reza MD [place] 02/02/2024 Assigned PCP 10/22/21 12/23/21 Keerthi Miner, SENIOR COMPENSATION CONSULTANT CHIEF VENDOR QUALITY [address] [place] [address] Assigned Heart and Vascular Provider 10/08/21 02/10/22 Shahida Sutton SENIOR COMPENSATION CONSULTANT CHIEF VENDOR QUALITY Assigned PCP 12/24/21 03/24/22 Porsha Michaels SENIOR COMPENSATION CONSULTANT CHIEF VENDOR QUALITY [address] [place] [address] Assigned Heart and Vascular Provider 02/11/22 05/12/22 Paula Reza MD [place] 02/02/2024 Assigned PCP 03/25/22 04/07/22 Shahida Sutton, SENIOR COMPENSATION CONSULTANT CHIEF VENDOR QUALITY [address] [place] [address] Assigned PCP 04/08/22 06/30/22 Daylin Ludwig EP [facility] [address] [place] [address] Cardiac Rehabilitation Therapist 05/16/23 Laurel Velasquez MD [address] [place] [address] Assigned Heart and Vascular Provider 05/13/22 06/30/22 Daylin Ludwig EP [facility] [address] [place] [address] Cardiac Rehabilitation Therapist 06/08/22 06/09/23 Paula Rzea MD [place]IVE [place] 02/02/2024 Assigned PCP 07/01/22 07/07/22 Porsha Michaels APRN CHIEF VENDOR QUALITY [address] [place] [address] Assigned Heart and Vascular Provider 07/01/22 07/07/22 Laurel Velasquez MD [address] [place] [address] Assigned Heart and Vascular Provider 07/08/22 08/04/22 Shahida Sutton APRN CHIEF VENDOR QUALITY Assigned PCP 07/08/22 09/08/22 Marilin Montaño, CHIEF VENDOR QUALITY [address] [place] [address] Assigned Heart and Vascular Provider 08/05/22 02/24/24 Esha Dewitt MD [address] [address] Gastroenterology 09/06/22 Heather Mosquera MD [address] [place] [address] Internal Medicine 09/06/22 Paula Reza MD [place] 02/02/2024 Assigned PCP 09/09/22 01/05/23 Esha Dewitt MD 420 [facility] 36 [place] [address] Assigned Gastroenterology Provider 09/23/22 04/26/24 Valdo Escamilla PA-C [address] [place] [address] Assigned Neuroscience Provider 09/30/22 04/26/24 Nohelia Abarca PA-C [address] [place] [address] Physician Marketing Summer Intern Gastroenterology 10/03/22 Heather Mosquera MD [address] [place] [address] Assigned PCP 01/06/23 Fawad York MD [address] [place] [address] Assigned Musculoskeletal Provider 04/27/23 06/25/23 documented as of this encounter
--- OUTSIDE RECORDS SUMMARY | 2024-11-02 15:15 | XMS_ITS | Encounter Summary ---
Author Organization [facility] Address [address] [place] [address] Care Team Providers Care Outdoor Landscape Architect Name Role Phone Mingo Aldana MD Primary Car e Provider HermanShahida APRN HEEL STAINER Primary Care Provi ford Unavailable Herman, Shahida Cummings APRN HEEL STAINER Unavailable Un available Herman, Shahida Cummings APRN HEEL STAINER Unavailable Un available Carolynn Ramon RN Unavailable [phone] Augustine Callaway MD Unavailable Brady Lion MD Unavailable Un available Nima FranceC Unavailable [phone] Camille Chandler-C Unavailable [phone] Anabela Barakat APRN HEEL STAINER Unavailable Nima FranceC Unavailable [phone] Basilio Morillo DO Unavailable [phone] Fawad York MD Unavailable [phone] Roopa Almonte MD Unavailable [phone] Augustine Callaway MD Unavailable Maryse Burton PA-C Unavailable [phone] Marquita Starkey MD Unavailable [phone] Roopa Almonte MD Unavailable [phone] Griffin Joshi MD Unavailable Rina Magallon RN Unavailable [phone] Paula Reza MD Primary Care Provider UnavailGriffin Youssef MD Unavailable Roopa Almonte MD Unavailable [phone] [facility] Naik Unavailable Lydia Bernstein PA-C Unavailable Rosa Maria Love Unavailable [phone] Augustine Callaway MD Unavailable Paula Reza MD Unavailable Unavailable Keerthi Miner APRN HEEL STAINER Unavailable [phone] Herman, Shahida Cummings APRN HEEL STAINER Unavailable Un available Porsha Michaels APRN HEEL STAINER Unavailable [phone] Paula Reza MD Unavailable Unavailable Herman, Shahida Cummings APRN HEEL STAINER Unavailable Un available Daylin Ludwig Unavailable [phone] Laurel Velasquez MD Unavailable [phone] Daylin Ludwig Unavailable [phone] Paula Reza MD Unavailable Unavailable Porsha Michaels APRN HEEL STAINER Unavailable [phone] Laurel Velasquez MD Unavailable [phone] Shahida Sutton APRN HEEL STAINER Unavailable Un available Marilin Montaño HEEL STAINER Unavailable [phone] Esha Dewitt MD Unavailable [phone] Heather Mosquera MD Unavailable [phone] Paula Reza MD Unavailable Unavailable Esha Dewitt MD Unavailable [phone] Valdo Escamilla PA-C Unavailable [phone] Nohelia Abarca PA-C Unavailable [phone] Heather Mosquera MD Unavailable [phone] Fawad York MD Unavailable [phone] Encounter Details Date Type Department Care Team (Late st Contact Info) Description 03/27/2013 MyC Medical Advice [address] [address] Brenda Nicolas MA Social History Tobacco Use Types Packs/Day Years Used Date Smoking Tobacco: Former Cigarettes Q uit: 12/09/2006 Cigars Smokeless Tobacco: Never Alcohol Use Standard Drinks/Week Comments Yes 0 (1 standard drink = 0.6 oz pur e alcohol) Very Occasionally Sex and Gender Information Value Date Recorded Sex Assigned at Male 09/20/2020 8:37 AM CDT 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 Gender Identity Male 09/20/2020 8:37 AM CDT Sexual Orientation Straight 09/20/2020 8: 37 AM CDT 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 Not on file Not on jabier e documented as of this encounter Plan of Treatment Not on file documented as of this encounter Visit Diagnoses Not on filedocumented in this encounter Additional Health Concerns Infection Onset Date Last Indicated Resolved Time Rule Out COVID-19 02/15/2020 02/15/2020 02/16/2020 2:32 PM TRUCK REPAIR SUPERVISOR Rule Out COVID-19 01/05/2021 01/05/2021 01/06/2021 12:57 PM CDT ESBL 01/05/2021 01/05/2021 Rule Out COVID-19 06/30/2021 06/30/2021 07/01/2021 9:34 AM CDT Rule Out COVID-19 07/25/2021 07/25/2021 07/25/2021 8:02 PM CDT documented as of this encounter Care Teams Outdoor Landscape Architect Relationship Specialty Start Date End Date Mingo Aldana MD PCP - General Family Practice 07/22/09 07/12/14 Shahida Sutton APRN HEEL STAINER PCP - General Nurse Practitioner 08/17/14 08/04/21 Shahida Sutton APRN HEEL STAINER PCP - Assigned PCP 07/12/14 05/07/18 Paula Reza MD PCP - General Internal Medicine 08/05/21 Shahida Sutton APRN HEEL STAINER Assigned PCP 07/12/14 09/30/21 Carolynn Ramon RN Personal Advocate & Liaison (PAL) 12/17/18 08/07/21 [place] [address] [place] [address] Assigned Musculoskeletal Provider 12/26/19 08/21/20 Brady Lion MD Assigned Heart and Vascular Provider 12/26/19 08/14/20 Nima France PA-C [address] [place] [address] Assigned Surgical Provider 05/19/20 08/21/20 Camille Chandler PA-C [address] [place] [address] Assigned Neuroscience Provider 05/19/20 09/14/20 Anabela Barakat APRN HEEL STAINER [address] [place] [address] Assigned Heart and Vascular Provider 08/15/20 08/05/21 Nima France PA-C [address] [facility] 450 [place] [address] Assigned Musculoskeletal Provider 08/22/20 11/13/20 [place] [address] [facility] [place] [address] Assigned Musculoskeletal Provider 11/14/20 12/04/20 Fawad York MD [address] [place], [place] [address] Assigned Musculoskeletal Provider 12/05/20 02/05/21 Roopa Almonte MD [address] [facility] 200 [place] [address] Endocrinology, Diabetes, and Metabolism 01/19/21 [place] [address] [facility] [address] [place] [address] Assigned Musculoskeletal Provider 02/06/21 09/16/21 Maryse Burton PA-C [address] [place] [address] Physician Surgical Assistant Certified Dermatology 04/14/21 Marquita Starkey MD [address] [facility] [address] [place], [place] [address] Internal Medicine 05/06/21 05/06/21 Roopa Almonte MD [address] [facility] [address] [place], [place] [address] Hospitalist Endocrinology, Diabetes, and Metabolism 05/30/21 Griffin Joshi MD [address] [facility] [address] [place] [address] Cardiovascular Disease 07/25/21 Rina Magallon, RN Lead Submarine Cable Equipment Technician 07/29/21 07/11/22 Griffin Joshi MD [address] [place] [address] Assigned Heart and Vascular Provider 08/06/21 10/07/21 Roopa Almonte MD [address] [place] [address] 200 [employer], [place] [address] Assigned Endocrinology Provider 09/10/21 02/24/24 [place] [address] [facility] [place] [address] Assigned Musculoskeletal Provider 09/17/21 10/14/21 Lydia Bernstein PA-C [address] [facility] [address] [place] [address] Assigned PCP 10/01/21 10/21/21 Rosa Maria Love CHW Community Health Worker 10/06/21 [place] [address] [facility] [address] [place] [address] Assigned Musculoskeletal Provider 10/15/21 04/26/23 Paula Reza MD [place]NACTIVE IN [place] 02/02/2024 Assigned PCP 10/22/21 12/23/21 Keerthi Miner, AUTOMOTIVE 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 HEEL STAINER [address] [place] [address] Assigned Heart and Vascular Provider 10/08/21 02/10/22 Shahida Sutton AUTOMOTIVE 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 HEEL STAINER Assigned PCP 12/24/21 03/24/22 Porsha Michaels AUTOMOTIVE 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 HEEL STAINER [address] [place] [address] Assigned Heart and Vascular Provider 02/11/22 05/12/22 Paula Reza MD [place]IVE [place] 02/02/2024 Assigned PCP 03/25/22 04/07/22 Shahida Sutton, AUTOMOTIVE 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 HEEL STAINER [address] [place] [address] Assigned PCP 04/08/22 06/30/22 Daylin Ludwig EP [facility] [address] [place] [address] Cardiac Rehabilitation Therapist 05/16/23 Laurel Velasquez MD [address] [place] [address] Assigned Heart and Vascular Provider 05/13/22 06/30/22 Daylin Ludwig EP [facility] [address] [place] [address] Cardiac Rehabilitation Therapist 06/08/22 06/09/23 Paula Reza MD [place] 02/02/2024 Assigned PCP 07/01/22 07/07/22 Porsha Michaels APRN HEEL STAINER [address] [place] [address] Assigned Heart and Vascular Provider 07/01/22 07/07/22 Laurel Velasquez MD [address] [place] [address] Assigned Heart and Vascular Provider 07/08/22 08/04/22 Shahida Sutton APRN HEEL STAINER Assigned PCP 07/08/22 09/08/22 Marilin Montaño, HEEL STAINER [address] [place] [address] Assigned Heart and Vascular Provider 08/05/22 02/24/24 Esha Dewitt MD [address] [address] Gastroenterology 09/06/22 Heather Mosquera MD [address] [place] [address] Internal Medicine 09/06/22 Paula Reza MD [place]IVE [place] 02/02/2024 Assigned PCP 09/09/22 01/05/23 Esha Dewitt MD 420 [facility] 36 [place] [address] Assigned Gastroenterology Provider 09/23/22 04/26/24 Valdo Escamilla PA-C [address] [place] [address] Assigned Neuroscience Provider 09/30/22 04/26/24 Nohelia Abarca PA-C [address] [place] [address] Physician Surgical Assistant Certified Gastroenterology 10/03/22 Heather Mosquera MD [address] [place] [address] Assigned PCP 01/06/23 Fwaad York MD [address] [place] [address] Assigned Musculoskeletal Provider 04/27/23 06/25/23 documented as of this encounter
--- OUTSIDE RECORDS SUMMARY | 2024-11-02 15:15 | XMS_ITS | Encounter Summary ---
Author Organization [facility] Address [address] [place] [address] Care Team Providers Care Cotton Factor Name Role Phone Mingo Aldana MD Primary Car e Provider HermanShahida APRN ATHLETIC TURF WORKER Primary Care Provi ford Unavailable Herman, Shahida Cummings APRN ATHLETIC TURF WORKER Unavailable Un available Herman, Shahida Cummings APRN ATHLETIC TURF WORKER Unavailable Un available Carolynn Ramon RN Unavailable [phone] Augustine Callaway MD Unavailable Brady Lion MD Unavailable Un available Nima FranceC Unavailable [phone] Camille Chandler-C Unavailable [phone] Anabela Barakat APRN ATHLETIC TURF WORKER Unavailable Nima FranceC Unavailable [phone] Basilio Morillo DO Unavailable [phone] Fawad York MD Unavailable [phone] Roopa Almonte MD Unavailable [phone] Augustine Callaway MD Unavailable Maryse Burton PA-C Unavailable [phone] Marquita Starkey MD Unavailable [phone] Roopa Almonte MD Unavailable [phone] Griffin Joshi MD Unavailable Rina Magallon RN Unavailable [phone] Paula Reza MD Primary Care Provider UnavailGriffin Youssef MD Unavailable Roopa Almonte MD Unavailable [phone] [facility] Basilio Naik Unavailable Lydia Bernstein PA-C Unavailable Rosa Maria Love Unavailable [phone] Augustine Callaway MD Unavailable Paula eRza MD Unavailable Unavailable Keerthi Miner APRN ATHLETIC TURF WORKER Unavailable [phone] Herman, Shahida Cummings APRN ATHLETIC TURF WORKER Unavailable Un available Porsha Michaels APRN ATHLETIC TURF WORKER Unavailable [phone] Paula Reza MD Unavailable Unavailable Herman, Shahida Cummings APRN ATHLETIC TURF WORKER Unavailable Un available Daylin Ludwig Unavailable [phone] Laurel Velasquez MD Unavailable [phone] Daylin Ludwig Unavailable [phone] Paula Reza MD Unavailable Unavailable Porsha Michaels APRN ATHLETIC TURF WORKER Unavailable [phone] Laurel Velasquez MD Unavailable [phone] Shahida Sutton APRN ATHLETIC TURF WORKER Unavailable Un available Marilin Montaño ATHLETIC TURF WORKER Unavailable [phone] Esha Dewitt MD Unavailable [phone] Heather Mosuqera MD Unavailable [phone] Paula Reza MD Unavailable Unavailable Esha Dewitt MD Unavailable [phone] Valdo Escamilla PA-C Unavailable [phone] Noehlia Abarca PA-C Unavailable [phone] Heather Mosquera MD Unavailable Fawad York MD Unavailable [phone] Reason for Visit * Reason Onset Date Comments MyChart Communication 11/06/2012 11/06/12 CT results Encounter Details Date Type Department Care Team (Late st Contact Info) Description 11/06/2012 MyC Medical Advice [address], [address] [place] [address] Mingo Aldana MD [facility] [address] [place] [address] MyChart Communication (11/06/12 CT results) Social History Tobacco Use Types Packs/Day Years Used Date Smoking Tobacco: Former Cigarettes Q uit: 12/09/2006 Cigars Smokeless Tobacco: Never Alcohol Use Standard Drinks/Week Comments Yes 0 (1 standard drink = 0.6 oz pur e alcohol) Very Occasionally Sex and Gender Information Value Date Recorded Sex Assigned at Male 09/20/2020 8:37 AM CDT Legal 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 Gender Identity Male 09/20/2020 8:37 AM CDT Sexual Orientation Straight 09/20/2020 8 :37 AM CDT documented as of this encounter Plan of Treatment Not on file documented as of this encounter Visit Diagnoses Not on filedocumented in this encounter Additional Health Concerns Infection Onset Date Last Indicated Resolved Time Rule Out COVID-19 02/15/2020 02/15/2020 02/16/2020 2:32 PM BELL RINGER Rule Out COVID-19 01/05/2021 01/05/2021 01/06/2021 12:57 PM CDT ESBL 01/05/2021 01/05/2021 Rule Out COVID-19 06/30/2021 06/30/2021 07/01/2021 9:34 AM CDT Rule Out COVID-19 07/25/2021 07/25/2021 07/25/2021 8:02 PM CDT documented as of this encounter Care Teams Cotton Factor Relationship Specialty Start Date End Date Mingo Aldana MD PCP - General Family Practice 07/22/09 07/12/14 Shahida Sutton APRN ATHLETIC TURF WORKER PCP - General Nurse Practitioner 08/17/14 08/04/21 Shahida Sutton APRN ATHLETIC TURF WORKER PCP - Assigned PCP 07/12/14 05/07/18 Paula Reza MD PCP - General Internal Medicine 08/05/21 Shahida Sutton APRN ATHLETIC TURF WORKER Assigned PCP 07/12/14 09/30/21 Carolynn Ramon, KASIE Personal Advocate & Liaison (PAL) 12/17/18 08/07/21 [place] [address] [place] [address] Assigned Musculoskeletal Provider 12/26/19 08/21/20 Brady Lion MD Assigned Heart and Vascular Provider 12/26/19 08/14/20 Nima France PA-C [address] [place] [id number] Assigned Surgical Provider 05/19/20 08/21/20 Camille Chandler PA-C [address] [place] [id number] Assigned Neuroscience Provider 05/19/20 09/14/20 Anabela Barakat APRN CNP [address] [place] [address] Assigned Heart and Vascular Provider 08/15/20 08/05/21 Nima France PA-C [address] [facility] [address] [place] [address] Assigned Musculoskeletal Provider 08/22/20 11/13/20 [place] [address] [place] [address] Assigned Musculoskeletal Provider 11/14/20 12/04/20 Fawad York MD 9 [place] [address] Assigned Musculoskeletal Provider 12/05/20 02/05/21 Roopa Almonte MD [address] [facility] 200 [place] [address] Endocrinology, Diabetes, and Metabolism 01/19/21 [place] [address] [facility] 300 [place] [address] Assigned Musculoskeletal Provider 02/06/21 09/16/21 Maryse Burton PA-C [address] [place] [address] Physician Poster Dermatology 04/14/21 Marquita Starkey MD [address] [facility] 200 [place], [place] [address] Internal Medicine 05/06/21 05/06/21 Roopa Almonte MD [address] [place] [address] Hospitalist Endocrinology, Diabetes, and Metabolism 05/30/21 Griffin Joshi MD [address] [place] [address] Cardiovascular Disease 07/25/21 Rina Magallon, RN Lead Air Shovel Operator 07/29/21 07/11/22 Griffin Joshi MD [address] [place] [address] Assigned Heart and Vascular Provider 08/06/21 10/07/21 Roopa Almonte MD [address] [place], [place] [address] Assigned Endocrinology Provider 09/10/21 02/24/24 [place] [address] [facility] [place] [address] Assigned Musculoskeletal Provider 09/17/21 10/14/21 Lydia Bernstein PA-C [address] [place] [address] Assigned PCP 10/01/21 10/21/21 Rosa Maria Love CHW Community Health Worker 10/06/21 [place] [address] [place] [address] Assigned Musculoskeletal Provider 10/15/21 04/26/23 Paula Reza MD [place] 02/02/2024 Assigned PCP 10/22/21 12/23/21 Keerthi Miner LOGISTICS ADMINISTRATOR ATHLETIC TURF WORKER [address] [place] [address] Assigned Heart and Vascular Provider 10/08/21 02/10/22 Shahida Sutton APRN ATHLETIC TURF WORKER Assigned PCP 12/24/21 03/24/22 Porsha Michaels APRN ATHLETIC TURF WORKER [address] [place] [address] Assigned Heart and Vascular Provider 02/11/22 05/12/22 Paula Reza MD [place] 02/02/2024 Assigned PCP 03/25/22 04/07/22 Shahida Sutton APRN ATHLETIC TURF WORKER [address] [place] [address] Assigned PCP 04/08/22 06/30/22 Daylin Ludwig, [facility] [address] [place] [address] Cardiac Rehabilitation Therapist 05/16/23 Laurel Velasquez MD [address] [place] [address] Assigned Heart and Vascular Provider 05/13/22 06/30/22 Daylin Ludwig, [facility] [address] [place] [address] Cardiac Rehabilitation Therapist 06/08/22 06/09/23 Paula Reza MD [place] 02/02/2024 Assigned PCP 07/01/22 07/07/22 Porsha Michaels APRN ATHLETIC TURF WORKER [address] [place] [address] Assigned Heart and Vascular Provider 07/01/22 07/07/22 Laurel Velasquez MD [address] [place] [address] Assigned Heart and Vascular Provider 07/08/22 08/04/22 Shahida Sutton APRN ATHLETIC TURF WORKER Assigned PCP 07/08/22 09/08/22 Marilin Montaño ATHLETIC TURF WORKER [address] [place] [address] Assigned Heart and Vascular Provider 08/05/22 02/24/24 Esha Dewitt MD [address] [facility] 36 [place], [place] [address] Gastroenterology 09/06/22 Heather Mosquera MD [address] [place], [place] [address] Internal Medicine 09/06/22 Paula Reza MD [place] 02/02/2024 Assigned PCP 09/09/22 01/05/23 Ehsa Dewitt MD [address] [facility] 36 [place] [address] Assigned Gastroenterology Provider 09/23/22 04/26/24 Valdo Escamilla PA-C [address] [place] [address] Assigned Neuroscience Provider 09/30/22 04/26/24 Nohelia Abarca PA-C [address] [place] [address] Physician Poster Gastroenterology 10/03/22 Heather Mosquera MD [address] [place] [address] Assigned PCP 01/06/23 Fawad York MD [address] [place] [address] Assigned Musculoskeletal Provider 04/27/23 06/25/23 documented as of this encounter
--- OUTSIDE RECORDS SUMMARY | 2024-11-02 15:15 | XMS_ITS | Encounter Summary ---
Author Organization [facility] Address [address] [place] [address] Care Team Providers Care Institution Director Name Role Phone Roopa Almonte MD Unavailable [phone] Maryse BurtonC Unavailable [phone] Roopa Almonte MD Unavailable [phone] Griffin Joshi MD Unavailable Paula Reza MD Primary Care Provider Unavailabl e Roopa Almonte MD Unavailable [phone] Augustine Callaway MD Unavailable Daylin Ludwig Unavailable [phone] Dyalin uLdwig Unavailable [phone] Marilin Montaño UNION REPRESENTATIVE Unavailable [phone] Esha Dewitt MD Unavailable [phone] Heather Mosquera MD Unavailable [phone] Esha Dewitt MD Unavailable [phone] Valdo Escamilla PA-C Unavailable [phone] Nohelia Abarca-C Unavailable [phone] Heather Mosquera MD Unavailable Fawad York MD Unavailable [phone] Encounter Details Date Type Department Care Team (Late st Contact Info) Description 01/29/2023 MyC Medical Advice [facility] Clinic [address] [place] [phone] Rina Levin RN Social History Tobacco Use [...] AM CDT Legal 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 Gender Identity Male 09/20/2020 8:37 AM CDT Sexual Orientation Straight 09/20/2020 8: 37 AM CDT 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 on file Not on [...] Optimize Self-Care Behaviors 90%(03/23/19 23 3:12 PM SHIFT SUPERINTENDENT CAUSTIC CRESYLATE) Angelita Diaz RD Note: I will check [...] documented as of this encounter Care Teams Institution Director Relationship Specialty Start Date End Date Paula Reza MD [address] [facility] [address] [place] [address] PCP - General Internal Medicine 08/05/21 Roopa Almonte MD [address] [facility] 200 [place] [address] Endocrinology, Diabetes, and Metabolism 01/19/21 Maryse Burton PA-C [address] [place] [address] Physician Order Runner Dermatology 04/14/21 Roopa Almonte MD [address] [address] Hospitalist Endocrinology, Diabetes, and Metabolism 05/30/21 Griffin Joshi MD [address] [place] [id number] [place] [address] Cardiovascular Disease 07/25/21 Roopa Almonte MD [address] [place] [address] 200 [place] [address] Assigned Endocrinology Provider 09/10/21 02/24/24 [place] [address] [facility] [address] [place] [address] Assigned Musculoskeletal Provider 10/15/21 04/26/23 Daylin Ludwig EP [facility] [address] [place] [address] Cardiac Rehabilitation Therapist 05/16/23 Daylin Ludwig EP [facility] [address] [place] [address] Cardiac Rehabilitation Therapist 06/08/22 06/09/23 Marilin Montaño CNP [address] [place] [address] Assigned Heart and Vascular Provider 08/05/22 02/24/24 Esha Dewitt MD 420 [facility] 36 [place] [address] Gastroenterology 09/06/22 Heather Mosquera MD [address] [place] [address] Internal Medicine 09/06/22 Esha Dewitt MD 420 [facility] 36 [place] [address] Assigned Gastroenterology Provider 09/23/22 04/26/24 Valdo Escamilla PA-C [address] [place] [address] Assigned Neuroscience Provider 09/30/22 04/26/24 Nohelia Abarca PA-C [address] [place] [address] Physician Order Runner Gastroenterology 10/03/22 Heather Mosquera MD [address] [place] [address] Assigned PCP 01/06/23 Fawad York MD [address] [place] [address] Assigned Musculoskeletal Provider 04/27/23 06/25/23 documented as of this encounter
--- OUTSIDE RECORDS SUMMARY | 2024-11-02 15:15 | XMS_ITS ---
Care Plan Created on: November 02, 2024 Mauro Terrell : 1960 Sex: Male Author Organization [facility] Address [address] [place] [address] Care Team Providers Care Raiser Helper Name Role Phone Roopa Almonte MD Unavailable [phone] Maryse Burton PA-C Unavailable Roopa Almonte MD Unavailable Griffin Joshi MD Unavailable Paula Reza MD Primary Care Provider UnavailDaylin Olsen Unavailable Esha Dewitt MD Unavailable [phone] Heather Mosquera MD Unavailable Nohelia Abarca PA-C Unavailable [phone] Heather Mosquera MD Unavailable [phone] Active Problems Problem Noted Date Diagnosed Date Renal mass 01/23/2023 Facial droop 07/06/2022 Severe sepsis 07/06/2022 Hypotension, unspecified hypotension type 2022 Nonrheumatic aortic valve stenosis 01/21/2022 Primary osteoarthritis of both hips 10/27/2021 Chronic atrial fibrillation 09/13/2021 Cardiac arrest 04/13/2021 Chronic narcotic dependence 04/13/2021 Left ventricular apical thro mbus following myocardial infarction 03/28/2021 Overview (04/13/2021): 1.5 cm apical thrombus noted on 03/28/2021 echo. Chronic combined systolic and diastolic heart fa ilure 03/18/[address] elevation myocardial infarction (STEMI) 02/06/2019 Overview (03/02/2019): 02/06/2019: Left anterior descending artery 80% stenosis, Stent placed, on brilinta 90 mg bid for 1 year, also needs to stay on ASA 81 mg. Coronary artery disease invo lving [place] coronary artery of [place] heart without angina pectoris 02/06/2019 Primary narcolepsy without cataplexy 07/25/2017 Moderate episode of recurrent major depressive d isorder 02/02/2017 Type 2 diabetes mellitus wit h diabetic nephropathy, with long-term current use of insulin 05/25/2016 ACP (advance care planning) 05/02/2016 Overview (05/02/2016): Advance Care Planning 05/02/2016: Receipt of ACP [...] Microalbuminuria 12/20/2014 Obesity 12/20/2014 Chronic pain 10/27/2014 Overview (08/14/2021): Pain clinic Neck pain, low back pain, hip pain and shoulder pain Generalized anxiety disorder 02/19/2014 Overview (01/04/2015): Diagnosis updated by automated process. Provider to review and confirm. Ophthalmic migraine 12/05/2011 Benign essential hypertension 01/16/2011 Migraine with aura 04/29/2010 Overview (12/04/2014): Problem list name updated by automated process. Provider to review Hyperlipidemia LDL goal <70 01/02/2010 Obstructive sleep apnea 11/01/2009 Low back pain 01/07/2008 Overview (01/04/2015): Diagnosis updated by automated process. Provider to review and confirm. 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 Provider to review Sinusitis, chronic 10/15/2006 Overview (12/03/2014): Problem list name updated by automated process. Provider to review Cervicalgia 11/24/2003 Insomnia with sleep apnea 10/06/2003 Overview (06/10/2019): HOSPITAL SALES REPRESENTATIVE:06/10/2019 SR Esophageal reflux 10/06/2003 Resolved Problems Problem [...] Elbow pain 08/06/2007 08/05/2021 Otalgia 08/19/2004 08/05/2021 Overview (12/03/2014): Problem list name updated by automated process. Provider to review Pes planus 08/19/2004 08/05/2021 Overview (12/03/2014): Problem list name updated by automated process. Provider to review Obesity 10/06/2003 05/25/2016 Overview (12/03/2014): Problem list name updated by automated process. [...] Self-Care Behaviors 90%(03/23/19 23 3:12 PM PACKING CHECKER) Angelita Diaz RD Note: I will check [...] Optimize Self-Care Behaviors Angelita Diaz RD Interventions Care Plan Interventions Intervention Entry Date Outcome Provide education [...] monitoring (sensor placement, use of cl or supervisor dimension warehouse/reader, understanding glucose trends, alerts and alarms, differences [...] 02/23/2022 Refer patient to appropriate extended care medical director/head team physician, as needed (Medication Therapy Management, Behavioral Health, [...] patient; Refer patient to appropriate extended care medical director/head team physician, as needed (Medication Therapy Management, Behavioral Health, [...] monitoring (sensor placement, use of cl or supervisor dimension warehouse/reader, understanding glucose trends, alerts and alarms, differences [...]
--- OUTSIDE RECORDS SUMMARY | 2024-11-02 15:15 | XMS_ITS | Encounter Summary ---
Author Organization [facility] Address [address] [place] [address] Care Team Providers Care Commercial Relief Driver Name Role Phone Mingo Aldana MD Primary Car e Provider HermanShahida APRN FEED CRUSHER Primary Care Provi ford Unavailable Herman, Shahida Cummings APRN FEED CRUSHER Unavailable Un available Herman, Shahida Cummings APRN FEED CRUSHER Unavailable Un available Carolynn Ramon RN Unavailable [phone] Augustine Callaway MD Unavailable Brady Lion MD Unavailable Un available Nima FranceC Unavailable [phone] Camille Chandler-C Unavailable [phone] Anabela Barakat APRN FEED CRUSHER Unavailable Nima FranceC Unavailable [phone] Basilio Morillo DO Unavailable [phone] Fawad York MD Unavailable [phone] Roopa Almonte MD Unavailable [phone] Augustine Callaway MD Unavailable Maryse Burton PA-C Unavailable [phone] Marquita Starkey MD Unavailable [phone] Roopa Almonte MD Unavailable [phone] Griffin Joshi MD Unavailable Rina Magallon RN Unavailable [phone] Paula Reza MD Primary Care Provider UnavailGriffin Youssef MD Unavailable Roopa Almonte MD Unavailable [phone] [facility] Naik Unavailable Lydia Bernstein PA-C Unavailable Rosa Maria Love Unavailable [phone] Augustine Callaway MD Unavailable Paula Reza MD Unavailable Unavailable Keerthi Miner APRN FEED CRUSHER Unavailable [phone] Herman, Shahida Cummings APRN FEED CRUSHER Unavailable Un available Porsha Michaels APRN FEED CRUSHER Unavailable [phone] Paula Reza MD Unavailable Unavailable Herman, Shahida Cummings APRN FEED CRUSHER Unavailable Un available Daylin Ludwig Unavailable [phone] Laurel Velasquez MD Unavailable [phone] Daylin Ludwig Unavailable [phone] Paula Reza MD Unavailable Unavailable Porsha Michaels APRN FEED CRUSHER Unavailable [phone] Laurel Velasquez MD Unavailable [phone] Shahida Sutton APRN FEED CRUSHER Unavailable Un available Marilin Montaño FEED CRUSHER Unavailable [phone] Esha Dewitt MD Unavailable [phone] Heather Mosquera MD Unavailable [phone] Paula Reza MD Unavailable Unavailable Esha Dewitt MD Unavailable [phone] Valdo Escamilla PA-C Unavailable [phone] Nohelia Abarca PA-C Unavailable [phone] Heather Mosquera MD Unavailable [phone] Fawad York MD Unavailable [phone] Encounter Details Date Type Department Care Team (Late st Contact Info) Description 12/05/2012 [facility] [address] [address] [facility] Social History Tobacco Use Types Packs/Day Years Used Date Smoking Tobacco: Former Cigarettes Q uit: 12/09/2006 Cigars Smokeless Tobacco: Never Alcohol Use Standard Drinks/Week Comments Yes 0 (1 standard drink = 0.6 oz pur e alcohol) Very Occasionally Sex and Gender Information Value Date Recorded Sex Assigned at Male 09/20/2020 8:37 AM CDT Legal Sex Male 3:40 AM SALES REPRESENTATIVE BUSINESS COURSES Gender Identity Male 09/20/2020 8:37 AM CDT Sexual Orientation Straight 09/20/2020 8: 37 AM CDT documented as of this encounter Plan of Treatment Not on file documented as of this encounter Visit Diagnoses Not on filedocumented in this encounter Additional Health Concerns Infection Onset Date Last Indicated Resolved Time Rule Out COVID-19 02/15/2020 02/15/2020 02/16/2020 2:32 PM SALES REPRESENTATIVE BUSINESS COURSES Rule Out COVID-19 01/05/2021 01/05/2021 01/06/2021 12:57 PM CDT ESBL 01/05/2021 01/05/2021 Rule Out COVID-19 06/30/2021 06/30/2021 07/01/2021 9:34 AM CDT Rule Out COVID-19 07/25/2021 07/25/2021 07/25/2021 8:02 PM CDT documented as of this encounter Care Teams Commercial Relief Driver Relationship Specialty Start Date End Date Mingo Aldana MD PCP - General Family Practice 07/22/09 07/12/14 Shahida Sutton APRN FEED CRUSHER PCP - General Nurse Practitioner 08/17/14 08/04/21 Shahida Sutton APRN FEED CRUSHER PCP - Assigned PCP 07/12/14 05/07/18 Paula Reza MD PCP - General Internal Medicine 08/05/21 Shahida Sutton APRN FEED CRUSHER Assigned PCP 07/12/14 09/30/21 Carolynn Ramon, KASIE Personal Advocate & Liaison (PAL) 12/17/18 08/07/21 [place] [address] [place] [address] Assigned Musculoskeletal Provider 12/26/19 08/21/20 Brady Lion MD Assigned Heart and Vascular Provider 12/26/19 08/14/20 Nima France PA-C [address] [facility] [address] [place] [address] Assigned Surgical Provider 05/19/20 08/21/20 Camille Chandler PA-C [address] [place] [address] Assigned Neuroscience Provider 05/19/20 09/14/20 Anabela Barakat APRN FEED CRUSHER [address] [place] [address] Assigned Heart and Vascular Provider 08/15/20 08/05/21 Nima France PA-C [address] [facility] [address] [place] [address] Assigned Musculoskeletal Provider 08/22/20 11/13/20 [place] [address] [place] [address] Assigned Musculoskeletal Provider 11/14/20 12/04/20 Fawad York MD [address] [place], [place] [address] Assigned Musculoskeletal Provider 12/05/20 02/05/21 Roopa Almonte MD [address] [facility] [address] [place] [address] Endocrinology, Diabetes, and Metabolism 01/19/21 [place] [address] [facility] [address] [place] [address] Assigned Musculoskeletal Provider 02/06/21 09/16/21 Maryse Burton PA-C [address] [place] [address] Physician Floor Covering Installer Dermatology 04/14/21 Marquita Starkey MD [address] [facility] [address] [place], [place] [address] Internal Medicine 05/06/21 05/06/21 Roopa Almonte MD [address] [place] [address] Hospitalist Endocrinology, Diabetes, and Metabolism 05/30/21 Griffin Joshi MD [address] [facility] [address] [place] [address] Cardiovascular Disease 07/25/21 Rina Magallon, RN Lead Barley Steeper 07/29/21 07/11/22 Griffin Joshi MD [address] [place] [address] Assigned Heart and Vascular Provider 08/06/21 10/07/21 Roopa Almonte MD [address] [facility] [address] [place] [address] Assigned Endocrinology Provider 09/10/21 02/24/24 [place] [address] [facility] [address] Assigned Musculoskeletal Provider 09/17/21 10/14/21 Lydia Bernstein PA-C [address] [place] [address] Assigned PCP 10/01/21 10/21/21 Rosa Maria Love CHW Community Health Worker 10/06/21 [place] [address] [address] [facility] [address] [place] [address] Assigned Musculoskeletal Provider 10/15/21 04/26/23 Paula Reza MD INACTIVE IN OR 02/02/2024 Assigned PCP 10/22/21 12/23/21 Keerthi Miner WINDOWS DESKTOP ENGINEER FEED CRUSHER [address] [place] [address] Assigned Heart and Vascular Provider 10/08/21 02/10/22 Shahida Sutton APRN FEED CRUSHER Assigned PCP 12/24/21 03/24/22 Porsha Michaels WINDOWS DESKTOP ENGINEER FEED CRUSHER [address] [place] [address] Assigned Heart and Vascular Provider 02/11/22 05/12/22 Paula Reza MD INACTIVE IN OR 02/02/2024 Assigned PCP 03/25/22 04/07/22 hSahida Sutton APRN FEED CRUSHER [address] [place] [address] Assigned PCP 04/08/22 06/30/22 Daylin Ludwig, EP [facility] [address] [place] [address] Cardiac Rehabilitation Therapist 05/16/23 Laurel Velasquez MD [address] [place] [address] Assigned Heart and Vascular Provider 05/13/22 06/30/22 Daylin Ludwig, EP [facility] [address] [place] [address] Cardiac Rehabilitation Therapist 06/08/22 06/09/23 Paula Reza MD INACTIVE IN OR 02/02/2024 Assigned PCP 07/01/22 07/07/22 Porsha Michaels, WINDOWS DESKTOP ENGINEER FEED CRUSHER [address] [place] [address] Assigned Heart and Vascular Provider 07/01/22 07/07/22 Laurel Velasquez MD [address] [place] [address] Assigned Heart and Vascular Provider 07/08/22 08/04/22 Shahida Sutton, WINDOWS DESKTOP ENGINEER FEED CRUSHER Assigned PCP 07/08/22 09/08/22 Marilin Montaño, FEED CRUSHER [address] [place] [address] Assigned Heart and Vascular Provider 08/05/22 02/24/24 Esha Dewitt MD [address] [facility] [address] [place] [address] Gastroenterology 09/06/22 Heather Mosquera MD [address] [place] [address] Internal Medicine 09/06/22 Paula Reza MD INACTIVE IN [place] 02/02/2024 Assigned PCP 09/09/22 01/05/23 Esha Dewitt MD [address] [address] Assigned Gastroenterology Provider 09/23/22 04/26/24 Valdo Escamilla PA-C [address] [place] [address] Assigned Neuroscience Provider 09/30/22 04/26/24 Nohelia Abarca PA-C [address] [facility] [address] [place] [address] Physician Floor Covering Installer Gastroenterology 10/03/22 Heather Mosquera MD [address] [facility] [address] [place] [address] Assigned PCP 01/06/23 Fawad York MD [address] [place] [address] Assigned Musculoskeletal Provider 04/27/23 06/25/23 documented as of this encounter
--- OUTSIDE RECORDS SUMMARY | 2024-11-02 15:15 | XMS_ITS | Encounter Summary ---
Author Organization [facility] Address [address] [place] [address] Care Team Providers Care Wood And Hardware Outfitter Name Role Phone Mingo Aldana MD Primary Car e Provider HermanShahida APRN WATER QUALITY TECHNICIAN Primary Care Provi ford Unavailable Herman, Shahida Cummings APRN WATER QUALITY TECHNICIAN Unavailable Un available Herman, Shahida Cummings APRN WATER QUALITY TECHNICIAN Unavailable Un available Carolynn Ramon RN Unavailable [phone] Augustine Callaway MD Unavailable Brady Lion MD Unavailable Un available Nima FranceC Unavailable [phone] Camille Chandler-C Unavailable [phone] Anabela Barakat APRN WATER QUALITY TECHNICIAN Unavailable Nima FranceC Unavailable [phone] Basilio Morillo DO Unavailable [phone] Fawad York MD Unavailable [phone] Roopa Almonte MD Unavailable [phone] Augustine Callaway MD Unavailable Maryse Burton PA-C Unavailable [phone] Marquita Starkey MD Unavailable [phone] Roopa Almonte MD Unavailable [phone] Griffin Joshi MD Unavailable Rina Magallon RN Unavailable [phone] Paula Reza MD Primary Care Provider UnavailGriffin Youssef MD Unavailable Roopa Almonte MD Unavailable [phone] [facility] Bas[facility] Naik Unavailable Lydia Bernstein PA-C Unavailable Rosa Maria Love Unavailable [phone] Augustine Callaway MD Unavailable Paula Reza MD Unavailable Unavailable Keerthi Miner APRN WATER QUALITY TECHNICIAN Unavailable [phone] Herman, Shahida Cummings APRN WATER QUALITY TECHNICIAN Unavailable Un available Porsha Michaels APRN WATER QUALITY TECHNICIAN Unavailable [phone] Paula Reza MD Unavailable Unavailable Herman, Shahida Cummings APRN WATER QUALITY TECHNICIAN Unavailable Un available Daylin Ludwig Unavailable [phone] Laurel Velasquez MD Unavailable [phone] Dalyin Ludwig Unavailable [phone] Paula Reza MD Unavailable Unavailable Porsha Michaels APRN WATER QUALITY TECHNICIAN Unavailable [phone] Laurel Velasquez MD Unavailable [phone] Shahida Sutton APRN WATER QUALITY TECHNICIAN Unavailable Un available Marilin Montaño WATER QUALITY TECHNICIAN Unavailable [phone] Esha Dewitt MD Unavailable [phone] Heather Mosquera MD Unavailable [phone] Paula Reza MD Unavailable Unavailable Esha Dewitt MD Unavailable [phone] Valdo Escamilla PA-C Unavailable [phone] Nohelia Abarca PA-C Unavailable [phone] Eveline Heathervictoriano Sands MD Unavailable [phone] Fawad York MD Unavailable Reason for Visit * Reason Onset Date Comments Refill Request 01/05/2014 [facility] Encounter Details Date Type Department Care Team (Late st Contact Info) Description 01/05/2014 MyC Refill [address] [address] Mingo Aldana MD [facility] [address] [place], [place] [id number] Refill Request ([place]) Social History Tobacco Use Types Packs/Day Years Used Date Smoking Tobacco: Former Cigarettes Q uit: 12/09/2006 Cigars Smokeless Tobacco: Never Alcohol Use Standard Drinks/Week Comments Yes 0 (1 standard drink = 0.6 oz pur e alcohol) Very Occasionally Sex and Gender Information Value Date Recorded Sex Assigned at Male 09/20/2020 8:37 AM CDT Legal Sex Male 3:40 AM QUALITY ASSURANCE SUPERVISOR FINAL Gender Identity Male 09/20/2020 8:37 AM CDT Sexual Orientation Straight 09/20/2020 8: 37 AM CDT 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 ITY ASSURANCE SUPERVISOR FINAL * Telephone Encounter - Shayla Callahan RN - 01/05/2014 12:52 PM CSTMessage from [employer]: Original authorizing provider: Mingo Aldana MD, MD Mauro Terrell would like a refill of the following medications: HYDROcodone-acetaminophen (NORCO) 10-325 MG per tablet [Mingo Aldana MD, MD] Preferred pharmacy: [id number] [id number] RIZ[address]NA Calderon Comment: ITY ASSURANCE SUPERVISOR FINAL documented in this encounter Plan of Treatment Not on file documented as of this encounter Visit Diagnoses Diagnosis Cervicalgia Radicular pain in right arm Neuralgia, neuritis, and radiculitis, unspecified documented in this encounter Additional Health Concerns Infection Onset Date Last Indicated Resolved Time Rule Out COVID-19 02/15/2020 02/15/2020 02/16/2020 2:32 PM QUALITY ASSURANCE SUPERVISOR FINAL Rule Out COVID-19 01/05/2021 01/05/2021 01/06/2021 12:57 PM CDT ESBL 01/05/2021 01/05/2021 Rule Out COVID-19 06/30/2021 06/30/2021 07/01/2021 9:34 AM CDT Rule Out COVID-19 07/25/2021 07/25/2021 07/25/2021 8:02 PM CDT documented as of this encounter Care Teams Wood And Hardware Outfitter Relationship Specialty Start Date End Date Mingo Aldana MD PCP - General Family Practice 07/22/09 07/12/14 Shahida Sutton APRN WATER QUALITY TECHNICIAN PCP - General Nurse Practitioner 08/17/14 08/04/21 Shahida Sutton APRN WATER QUALITY TECHNICIAN PCP - Assigned PCP 07/12/14 05/07/18 Paula Reza MD PCP - General Internal Medicine 08/05/21 Shahida Sutton APRN WATER QUALITY TECHNICIAN Assigned PCP 07/12/14 09/30/21 Carolynn Ramon RN Personal Advocate & Liaison (PAL) 12/17/18 08/07/21 [place] [address] [place] [address] Assigned Musculoskeletal Provider 12/26/19 08/21/20 Brady Lion MD Assigned Heart and Vascular Provider 12/26/19 08/14/20 Nima France PA-C [address] [facility] 450 [place], [place] [address] Assigned Surgical Provider 05/19/20 08/21/20 Camille Chandler PA-C [address] [place] [address] [place] [address] Assigned Neuroscience Provider 05/19/20 09/14/20 Anabela Barakat APRN WATER QUALITY TECHNICIAN [address]00 [place] [address] Assigned Heart and Vascular Provider 08/15/20 08/05/21 Nima France PA-C [address] [address] Assigned Musculoskeletal Provider 08/22/20 11/13/20 [place] [address] [facility] [place] [address] Assigned Musculoskeletal Provider 11/14/20 12/04/20 Fawad York MD [address] [place] [address] Assigned Musculoskeletal Provider 12/05/20 02/05/21 Roopa Almonte MD [address] [facility] 200 [place] [address] Endocrinology, Diabetes, and Metabolism 01/19/21 [place] [address] [facility] 300 [place] [address] Assigned Musculoskeletal Provider 02/06/21 09/16/21 Maryse Burton PA-C [address] [place] [address] Physician Resolution Analyst Dermatology 04/14/21 Marquita Starkey MD [address] [facility] 200 [place] [address] Internal Medicine 05/06/21 05/06/21 Roopa Almonte MD 303 [facility] 200 [place] [address] Hospitalist Endocrinology, Diabetes, and Metabolism 05/30/21 Griffin Joshi MD [address] [facility] [address] [place] [address] Cardiovascular Disease 07/25/21 Rina Magallon, RN Lead Chief Relay Tester 07/29/21 07/11/22 Griffin Joshi MD [address] [facility] [address] [place] [address] Assigned Heart and Vascular Provider 08/06/21 10/07/21 Roopa Almonte MD [address] [facility] [address] [place] [address] Assigned Endocrinology Provider 09/10/21 02/24/24 [place] [address] [facility] [place], [place] [address] Assigned Musculoskeletal Provider 09/17/21 10/14/21 Lydia Bernstein PA-C [address] [place] [address] Assigned PCP 10/01/21 10/21/21 Rosa Maria Love Cristina Community Health Worker 10/06/21 [place] [address] [facility] [address] [place] [address] Assigned Musculoskeletal Provider 10/15/21 04/26/23 Paula Reza MD INACTIVE IN CT 02/02/2024 Assigned PCP 10/22/21 12/23/21 Keerthi Miner APRN WATER QUALITY TECHNICIAN [address] [place] [address] Assigned Heart and Vascular Provider 10/08/21 02/10/22 Shahida Sutton APRN WATER QUALITY TECHNICIAN Assigned PCP 12/24/21 03/24/22 Porsha Michaels APRN WATER QUALITY TECHNICIAN [address] [place] [address] Assigned Heart and Vascular Provider 02/11/22 05/12/22 Paula Reza MD INACTIVE IN CT 02/02/2024 Assigned PCP 03/25/22 04/07/22 Shahida Sutton APRN WATER QUALITY TECHNICIAN [address] [place] [address] Assigned PCP 04/08/22 06/30/22 Daylin Ludwig, [facility] [address] [place] [address] Cardiac Rehabilitation Therapist 05/16/23 Laurel Velasquez MD [address] [place] [address] Assigned Heart and Vascular Provider 05/13/22 06/30/22 Daylin Ludwig, [facility] [address] [place] [address] Cardiac Rehabilitation Therapist 06/08/22 06/09/23 Paula Reza MD INACTIVE IN CT 02/02/2024 Assigned PCP 07/01/22 07/07/22 Porsha Michaels APRN WATER QUALITY TECHNICIAN [address] [place] [address] Assigned Heart and Vascular Provider 07/01/22 07/07/22 Laurel Velasquez MD [address] [place] [address] Assigned Heart and Vascular Provider 07/08/22 08/04/22 Shahida Sutton APRN WATER QUALITY TECHNICIAN Assigned PCP 07/08/22 09/08/22 GerryyamilMarilin Jared, WATER QUALITY TECHNICIAN [address] [place] [address] Assigned Heart and Vascular Provider 08/05/22 02/24/24 Esha Dewitt MD 420 [facility] 36 [place] [address] Gastroenterology 09/06/22 Heather Mosquera MD [address] [place] [address] Internal Medicine 09/06/22 Paula Reza MD INACTIVE IN CT 02/02/2024 Assigned PCP 09/09/22 01/05/23 Esha Dewitt MD [address] [address] Assigned Gastroenterology Provider 09/23/22 04/26/24 Valdo Escamilla PA-C [address] [place] [address] Assigned Neuroscience Provider 09/30/22 04/26/24 Nohelia Abarca PA-C [address] [place] [address] Physician Resolution Analyst Gastroenterology 10/03/22 Heather Mosquera MD [address] [place] [address] Assigned PCP 01/06/23 Fawad York MD [address] [place] [address] Assigned Musculoskeletal Provider 04/27/23 06/25/23 documented as of this encounter
--- OUTSIDE RECORDS SUMMARY | 2024-11-02 15:15 | XMS_ITS | Encounter Summary ---
Author Organization [facility] Address [address] [place] [address] Care Team Providers Care Transport Operations Inspector Name Role Phone Shahida Sutton APRN ANALYTICAL DATA MINER Primary Care Provi ford Unavailable Shahida Sutton APRN ANALYTICAL DATA MINER Unavailable Un available Carolynn Ramon RN Unavailable [phone] Augustine Callaway MD Unavailable Brady Lion MD Unavailable Un available Nima France-C Unavailable [phone] Camille Chandler PA-C Unavailable [phone] Anabela Barakat APRN ANALYTICAL DATA MINER Unavailable Nima France PA-C Unavailable [phone] Basilio Morillo DO Unavailable [phone] Fawad York MD Unavailable Roopa Almonte MD Unavailable Augustine Callaway MD Unavailable Maryse Burton PA-C Unavailable Marquita Starkey MD Unavailable [phone] Roopa Almonte MD Unavailable [phone] Griffin Joshi MD Unavailable + Rina Magallon RN Unavailable [phone] Paula Reza MD Primary Care Provider UnavailGriffin Youssef MD Unavailable Roopa Almonte MD Unavailable [phone] [facility] wayneBasilio stiles Unavailable Lydia Bernstein-C Unavailable Rosa Maria Love Unavailable [phone] Augustine Callaway MD Unavailable Paula Reza MD Unavailable Unavailable Keerthi Miner APRN ANALYTICAL DATA MINER Unavailable [phone] Herman, Shahida Cummings APRN ANALYTICAL DATA MINER Unavailable Un available Porsha Michaels APRN ANALYTICAL DATA MINER Unavailable + Paula Reza MD Unavailable Unavailable Herman, Shahida Cummings APRN ANALYTICAL DATA MINER Unavailable Un available Daylin Ludwig Unavailable [phone] Laurel Velasquez MD Unavailable [phone] Daylin Ludwig Unavailable +[phone] Paula Reza MD Unavailable Unavailable Porsha Michaels APRN ANALYTICAL DATA MINER Unavailable + Laurel Velasquez MD Unavailable + [phone] HermanShahida huerta APRN ANALYTICAL DATA MINER Unavailable Un available Marilin Montaño ANALYTICAL DATA MINER Unavailable [phone] Esha Dewitt MD Unavailable + [phone] Heather Mosquera MD Unavailable [phone] Paula Reza MD Unavailable Unavailable Esha Dewitt MD Unavailable [phone] Valdo Escamilla PA-C Unavailable [phone] Nohelia Abarca PA-C Unavailable [phone] Heather Mosquera MD Unavailable [phone] Fawad York MD Unavailable [phone] Reason for Visit * Reason Onset Date Comments Refill Request 11/05/2019 Encounter Details Date Type Department Care Team (Late st Contact Info) Description 11/05/2019 MyC Refill [address] [address] Shahida Sutton APRN ANALYTICAL DATA MINER Refill Request Social History Tobacco Use Types [...] AM CDT Legal 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 Radha Smith RN, BSN documented in this encounter Plan of Treatment Not on file documented as of this encounter Visit Diagnoses Diagnosis Other insomnia Generalized anxiety disorder documented in this encounter Additional Health Concerns Infection Onset Date Last Indicated Resolved Time Rule Out COVID-19 02/15/2020 02/15/2020 02/16/2020 2:32 PM DYSLEXIA TEACHER Rule Out COVID-19 01/05/2021 01/05/2021 01/06/2021 12:57 PM CDT ESBL 01/05/2021 01/05/2021 Rule Out COVID-19 06/30/2021 06/30/2021 07/01/2021 9:34 AM CDT Rule Out COVID-19 07/25/2021 07/25/2021 07/25/2021 8:02 PM CDT Assessment Noted Time PHQ-9 Depression Total Score: 7 08/13/19 1:22 PM CDT documented as of this encounter Care Teams Transport Operations Inspector Relationship Specialty Start Date End Date Shahida Sutton APRN ANALYTICAL DATA MINER PCP - General Nurse Practitioner 08/17/14 08/04/21 Paula Reza MD PCP - General Internal Medicine 08/05/21 Shahida Sutton APRN ANALYTICAL DATA MINER Assigned PCP 07/12/14 09/30/21 Carolynn Ramon RN Personal Advocate & Liaison (PAL) 12/17/18 08/07/21 [place] [address] [place] [address] Assigned Musculoskeletal Provider 12/26/19 08/21/20 Brady Lion MD Assigned Heart and Vascular Provider 12/26/19 08/14/20 Nima France PA-C [address] [place] [address] Assigned Surgical Provider 05/19/20 08/21/20 Camille Chandler PA-C [address]45 [facility] [address] [place] [address] Assigned Neuroscience Provider 05/19/20 09/14/20 Anabela Barakat APRN ANALYTICAL DATA MINER [address] [place] [address] Assigned Heart and Vascular Provider 08/15/20 08/05/21 Nima France PA-C 6545 [facility] [address] [place] [address] Assigned Musculoskeletal Provider 08/22/20 11/13/20 [place] [address] [place], [place] [address] Assigned Musculoskeletal Provider 11/14/20 12/04/20 Fawad York MD [address] [place], [place] [address] Assigned Musculoskeletal Provider 12/05/20 02/05/21 Roopa Almonte MD [address] [facility] [address] [place] [address] Endocrinology, Diabetes, and Metabolism 01/19/21 [place] [address] [facility] [address] [place] [address] Assigned Musculoskeletal Provider 02/06/21 09/16/21 Maryse Burton PA-C [address] [place] [address] Physician Facility Manager Histology Dermatology 04/14/21 Marquita Starkey MD [address] [facility] [address] [place], [place] [address] Internal Medicine 05/06/21 05/06/21 Roopa Almonte MD [address] [facility] 200 [place], [place] [address] Hospitalist Endocrinology, Diabetes, and Metabolism 05/30/21 Griffin Joshi MD [address] [facility] [address] [place], [place] [address] Cardiovascular Disease 07/25/21 Rina Magallon, RN Lead Mend Worker 07/29/21 07/11/22 Griffin Joshi MD [address] [facility] S [facility] [address] [place] [address] Assigned Heart and Vascular Provider 08/06/21 10/07/21 Roopa Almonte MD [address] [place], [place] [address] Assigned Endocrinology Provider 09/10/21 02/24/24 [place] [address] [facility] [place] [address] Assigned Musculoskeletal Provider 09/17/21 10/14/21 Lydia Bernstein PA-C [address] [place] [address] Assigned PCP 10/01/21 10/21/21 Rosa Maria LoveSHARDAW Community Health Worker 10/06/21 07/11/22 [place] [address] [place] [address] Assigned Musculoskeletal Provider 10/15/21 04/26/23 Paula Reza MD INACTIVE IN [place] 02/02/2024 Assigned PCP 10/22/21 12/23/21 Keerthi Miner APRN ANALYTICAL DATA MINER [address] [place] [address] Assigned Heart and Vascular Provider 10/08/21 02/10/22 Shahida Sutton APRN ANALYTICAL DATA MINER Assigned PCP 12/24/21 03/24/22 Porsha Michaels APRN ANALYTICAL DATA MINER [address] [place] [address] Assigned Heart and Vascular Provider 02/11/22 05/12/22 Paula Reza MD INACTIVE IN [place] 02/02/2024 Assigned PCP 03/25/22 04/07/22 Shahida Sutton APRN ANALYTICAL DATA MINER [address] [place] [address] Assigned PCP 04/08/22 06/30/[address] [facility] [address] [place] [address] Cardiac Rehabilitation Therapist 05/16/23 Laurel Velasquez MD [address] [place] [address] Assigned Heart and Vascular Provider 05/13/22 06/30/[address] [facility] [address] [place] [address] Cardiac Rehabilitation Therapist 06/08/22 06/09/23 Paula Reza MD INACTIVE IN [place] 02/02/2024 Assigned PCP 07/01/22 07/07/22 Porsha Michaels APRN ANALYTICAL DATA MINER [address] [place] [address] Assigned Heart and Vascular Provider 07/01/22 07/07/22 Laurel Velasquez MD [address] [place] [address] Assigned Heart and Vascular Provider 07/08/22 08/04/22 Shahida Sutton APRN ANALYTICAL DATA MINER Assigned PCP 07/08/22 09/08/22 Marilin Montaño, ANALYTICAL DATA MINER [address] [place] [address] Assigned Heart and Vascular Provider 08/05/22 02/24/24 Esha Dewitt MD [address] [place] [address] Gastroenterology 09/06/22 Heather Mosquera MD [address] [place] [address] Internal Medicine 09/06/22 Paula Reza MD INACTIVE IN [place] 02/02/2024 Assigned PCP 09/09/22 01/05/23 Esha Dewitt MD [address] [place] [address] 36 [place], [place] [address] Assigned Gastroenterology Provider 09/23/22 04/26/24 Valdo Escamilla PA-C [address] [place] [address] Assigned Neuroscience Provider 09/30/22 04/26/24 Nohelia Abarca PA-C [address] [place] [address] Physician Facility Manager Histology Gastroenterology 10/03/22 Heather Mosquera MD [address] [place] [address] Assigned PCP 01/06/23 Fawad York MD [address] [place] [address] Assigned Musculoskeletal Provider 04/27/23 06/25/23 documented as of this encounter
--- OUTSIDE RECORDS SUMMARY | 2024-11-02 15:15 | XMS_ITS | Encounter Summary ---
Author Organization [facility] Address [address] [place] [address] Care Team Providers Care Agency Sales Management Assistant Name Role Phone Roopa Almonte MD Unavailable [phone] Maryse Burton PA-C Unavailable [phone] Roopa Almonte MD Unavailable [phone] Griffin Joshi MD Unavailable Paula Reza MD Primary Care Provider Unavailabl Roopa Mtz MD Unavailable [phone] Daylin Ludwig Unavailable [phone] Marilin Montaño CNP Unavailable [phone] Esha Dewitt MD Unavailable [phone] Heather Mosquera MD Unavailable [phone] Esha Dewitt MD Unavailable [phone] Valdo EscamillaC Unavailable [phone] Nohelia Abarca PA-C Unavailable [phone] Heather Mosquera MD Unavailable [phone] Encounter Details Date Type Department Care Team (Late st Contact Info) Description 10/31/2023 MyC Medical Advice [facility] [address] [place] [address] Elicia Metcalf, RN Social History Tobacco Use Types Packs/Day [...] AM CDT Legal Sex Male 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 Gender Identity Male 09/20/2020 8:37 AM CDT Sexual Orientation Straight 09/20/2020 8: 37 AM CDT 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 on file [...] Optimize Self-Care Behaviors 90%(03/23/19 23 3:12 PM 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) Angelita Diaz RD Note: I will check [...] documented as of this encounter Care Teams Agency Sales Management Assistant Relationship Specialty Start Date End Date Paula Reza MD [address] [facility] [address] [place] [address] PCP - General Internal Medicine 08/05/21 Roopa Almonte MD [address] [facility] 200 [place] [address] Endocrinology, Diabetes, and Metabolism 01/19/21 Maryse Burton PA-C [address] [place] [address] Physician Cloth Folder Hand Dermatology 04/14/21 Roopa Almonte MD [address] [facility] 200 [place] [address] Hospitalist Endocrinology, Diabetes, and Metabolism 05/30/21 Griffin Joshi MD [address] [facility] [address] [place] [address] Cardiovascular Disease 07/25/21 Roopa Almonte MD [address] [place] [address] Assigned Endocrinology Provider 09/10/21 02/24/24 Daylin Ludwig EP [facility] [address] [place] [place] [address] Cardiac Rehabilitation Therapist 05/16/23 Marilin Montaño, CAMPUS COORDINATOR [address] [place] [address] Assigned Heart and Vascular Provider 08/05/22 02/24/24 Esha Dewitt MD 420 [facility] 36 [place] [address] Gastroenterology 09/06/22 Heather Mosquera MD [address] [place] [address] Internal Medicine 09/06/22 Esha Dewitt MD 420 [facility] 36 [place] [address] Assigned Gastroenterology Provider 09/23/22 04/26/24 Valdo Escamilla PA-C [address] [place] [address] Assigned Neuroscience Provider 09/30/22 04/26/24 Nohelia Abarca PA-C [address] [place] [address] Physician Cloth Folder Hand Gastroenterology 10/03/22 Heather Mosquera MD [address] [place] [address] Assigned PCP 01/06/23 documented as of this encounter
--- OUTSIDE RECORDS SUMMARY | 2024-11-02 15:15 | XMS_ITS | Encounter Summary ---
Author Organization [facility] Address [address] [place] [address] Care Team Providers Care Boiler Service Technician Name Role Phone Shahida Sutton APRN HEALTH AND SAFETY INSPECTOR Primary Care Provi ford Unavailable Shahida Sutton APRN HEALTH AND SAFETY INSPECTOR Unavailable Un available Carolynn Ramon RN Unavailable [phone] Augustine Callaway MD Unavailable Brady Lion MD Unavailable Un available Nima France-C Unavailable [phone] Camille Chandler PA-C Unavailable [phone] Anabela Barakat APRN HEALTH AND SAFETY INSPECTOR Unavailable Nima France PA-C Unavailable [phone] Basilio Morillo DO Unavailable Fawad York MD Unavailable Roopa Almonte MD Unavailable [phone] Augustine Callaway MD Unavailable Maryse Burton PA-C Unavailable Marquita Starkey MD Unavailable [phone] Roopa Almonte MD Unavailable [phone] Griffin Joshi MD Unavailable + Rina Magallon RN Unavailable [phone] Paula Reza MD Primary Care Provider UnavailGriffin Youssef MD Unavailable Roopa Almonte MD Unavailable [phone] [facility] system[facility]ilio stiles Unavailable Lydia Bernstein-C Unavailable Rosa Maria Love Unavailable [phone] Augustine Callaway MD Unavailable Paula Reza MD Unavailable Unavailable Keerthi Miner APRN HEALTH AND SAFETY INSPECTOR Unavailable [phone] Herman, Shahida Cummings APRN HEALTH AND SAFETY INSPECTOR Unavailable Un available Porsha Michaels APRN HEALTH AND SAFETY INSPECTOR Unavailable + Paula Reza MD Unavailable Unavailable Herman, Shahida Cummings APRN HEALTH AND SAFETY INSPECTOR Unavailable Un available Daylin Ludwig Unavailable [phone] Laurel Velasquez MD Unavailable [phone] Daylin Ludwig Unavailable +[phone] Palua Reza MD Unavailable Unavailable Porsha Michaels APRN HEALTH AND SAFETY INSPECTOR Unavailable + Laurel Velasquez MD Unavailable + [phone] HermanShahida huerta APRN HEALTH AND SAFETY INSPECTOR Unavailable Un available Marilin Montaño HEALTH AND SAFETY INSPECTOR Unavailable [phone] Esha Dewitt MD Unavailable + [phone] Heather Mosquera MD Unavailable [phone] Paula Reza MD Unavailable Unavailable Esha Dewitt MD Unavailable [phone] Valdo Escamilla PA-C Unavailable [phone] Nohelia Abarca PA-C Unavailable [phone] Heather Mosquera MD Unavailable [phone] Fawad York MD Unavailable [phone] Encounter Details Date Type Department Care Team (Late st Contact Info) Description 09/30/2019 MyC Medical Advice [address] [address] Emma Bryan, ARIANNE Social History Tobacco Use Types Packs/Day Years [...] AM CDT Legal Sex Male 3:40 AM TAX SERVICES INTERN Gender Identity Male 09/20/2020 8:37 AM CDT Sexual Orientation Straight 09/20/2020 8: 37 AM CDT 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 [...] Out COVID-19 02/15/2020 02/15/2020 02/16/2020 2:32 PM TAX SERVICES INTERN Rule Out COVID-19 01/05/2021 01/05/2021 01/06/2021 12:57 PM CDT ESBL 01/05/2021 01/05/2021 Rule Out COVID-19 06/30/2021 06/30/2021 07/01/2021 9:34 AM CDT Rule Out COVID-19 07/25/2021 07/25/2021 07/25/2021 8:02 PM CDT Assessment Noted Time PHQ-9 Depression Total Score: 7 08/13/19 20 1:22 PM CDT documented as of this encounter Care Teams Boiler Service Technician Relationship Specialty Start Date End Date Shahida Sutton APRN HEALTH AND SAFETY INSPECTOR PCP - General Nurse Practitioner 08/17/14 08/04/21 Paula Reza MD PCP - General Internal Medicine 08/05/21 Shahida Sutton APRN HEALTH AND SAFETY INSPECTOR Assigned PCP 07/12/14 09/30/21 Carolynn Ramon RN Personal Advocate & Liaison (PAL) 12/17/18 08/07/21 [place] [address] [place] [address] Assigned Musculoskeletal Provider 12/26/19 08/21/20 Brady Lion MD Assigned Heart and Vascular Provider 12/26/19 08/14/20 Nima France PA-C [address] [facility] 450 [place] [address] Assigned Surgical Provider 05/19/20 08/21/20 Camille Chandler PA-C [address] [facility] [address] [place] [address] Assigned Neuroscience Provider 05/19/20 09/14/20 Anabela Barakat APRN HEALTH AND SAFETY INSPECTOR [address] [place] [address] Assigned Heart and Vascular Provider 08/15/20 08/05/21 Nima France PA-C [address] [place] [address] Assigned Musculoskeletal Provider 08/22/20 11/13/20 [place] [address] [facility] [place] [address] Assigned Musculoskeletal Provider 11/14/20 12/04/20 Fawad York MD [address] [place], [place] [address] Assigned Musculoskeletal Provider 12/05/20 02/05/21 Roopa Almonte MD [address] [facility] [address] [place] [address] Endocrinology, Diabetes, and Metabolism 01/19/21 [place] [address] [facility] 300 [place] [address] Assigned Musculoskeletal Provider 02/06/21 09/16/21 Maryse Burton, PAAna MariaC [address] [place] [address] Physician Therapeutic Case Manager Dermatology 04/14/21 Marquita Starkey MD [address] [place] [address] Internal Medicine 05/06/21 05/06/21 Roopa Almonte MD [address] [place] [address] Hospitalist Endocrinology, Diabetes, and Metabolism 05/30/21 Griffin Joshi MD [address] [place] [address] Cardiovascular Disease 07/25/21 Rina Magallon, RN Lead Technician'S Helper 07/29/21 07/11/22 Griffin Joshi MD [address] [facility] [address] [place] [address] Assigned Heart and Vascular Provider 08/06/21 10/07/21 Roopa Almonte MD [address] [facility] [address] [place], [place] [address] Assigned Endocrinology Provider 09/10/21 02/24/24 [place] [address] [facility] [place] [address] Assigned Musculoskeletal Provider 09/17/21 10/14/21 Lydia Bernstein PA-C [address] [facility] [address] [place] [address] Assigned PCP 10/01/21 10/21/21 Rosa Maria Love CH[facility] Community Health Worker 10/06/21 07/11/22 [place] [address] [address] [facility] [address] [place] [address] Assigned Musculoskeletal Provider 10/15/21 04/26/23 Paula Reza MD INACTIVE IN [place] 02/02/2024 Assigned PCP 10/22/21 12/23/21 Keerthi Miner APRN HEALTH AND SAFETY INSPECTOR [address] [place] [address] Assigned Heart and Vascular Provider 10/08/21 02/10/22 Shahida Sutton APRN HEALTH AND SAFETY INSPECTOR Assigned PCP 12/24/21 03/24/22 Porsha Michaels APRN HEALTH AND SAFETY INSPECTOR [address] [place] [address] Assigned Heart and Vascular Provider 02/11/22 05/12/22 Paula Reza MD [place] 02/02/2024 Assigned PCP 03/25/22 04/07/22 Shahida Sutton APRN HEALTH AND SAFETY INSPECTOR [address] [place] [address] Assigned PCP 04/08/22 06/30/22 Daylin Ludwig, EP [facility] [address] [place] [address] Cardiac Rehabilitation Therapist 05/16/23 Laurel Velasquez MD [address] [place] [address] Assigned Heart and Vascular Provider 05/13/22 06/30/22 Daylin Ludwig, EP [facility] [address] [place] [address] Cardiac Rehabilitation Therapist 06/08/22 06/09/23 Paula Reza MD [place]IVE IN [place] 02/02/2024 Assigned PCP 07/01/22 07/07/22 Porsha Michaels APRN HEALTH AND SAFETY INSPECTOR [address] [place] [address] Assigned Heart and Vascular Provider 07/01/22 07/07/22 Laurel Velasquez MD [address] [place] [address] Assigned Heart and Vascular Provider 07/08/22 08/04/22 Shahida Sutton, POLE SETTER HEALTH AND SAFETY INSPECTOR Assigned PCP 07/08/22 09/08/22 Marilin Montaño, HEALTH AND SAFETY INSPECTOR [address] [place] [address] Assigned Heart and Vascular Provider 08/05/22 02/24/24 Esha Dewitt MD 420 [facility] 36 [place] [address] Gastroenterology 09/06/22 Heather Mosquera MD [address] [place] [address] Internal Medicine 09/06/22 Paula Reza MD I[place]CTIVE IN [place] 02/02/2024 Assigned PCP 09/09/22 01/05/23 Esha Dewitt MD 420 [facility] 36 [place], [place] [address] Assigned Gastroenterology Provider 09/23/22 04/26/24 Valdo Escamilla PA-C [address] [place] [address] Assigned Neuroscience Provider 09/30/22 04/26/24 Nohelia Abarca PA-C [address] [place] [address] Physician Therapeutic Case Manager Gastroenterology 10/03/22 Heather Mosquera MD [address] [place] [address] Assigned PCP 01/06/23 Fawad York MD [address] [place], [place] [address] Assigned Musculoskeletal Provider 04/27/23 06/25/23 documented as of this encounter
--- OUTSIDE RECORDS SUMMARY | 2024-11-02 15:15 | XMS_ITS | Encounter Summary ---
Author Organization [facility] Address [address] [place] [address] Care Team Providers Care Wardrobe Coordinator Name Role Phone Shahida Sutton APRN PROFESSOR OF ARCHITECTURE Primary Care Provi ford Unavailable Shahida Sutton APRN PROFESSOR OF ARCHITECTURE Unavailable Un available Carolynn Ramon RN Unavailable [phone] Augustine Callaway MD Unavailable Brady Lion MD Unavailable Un available Nima France-C Unavailable +[phone] Camille Chandler PA-C Unavailable +[phone] Anabela Barakat APRN PROFESSOR OF ARCHITECTURE Unavailable Nima France PA-C Unavailable [phone] Basilio Morillo DO Unavailable Fawad York MD Unavailable +[phone] Roopa Almonte MD Unavailable +[phone] Augustine Callaway MD Unavailable Maryse Burton PA-C Unavailable +[phone] Marquita Starkey MD Unavailable +[phone] Roopa Almonte MD Unavailable [phone] Griffin Joshi MD Unavailable + Rina Magallon RN Unavailable [phone] Paula Reza MD Primary Care Provider UnavailGriffin Youssef MD Unavailable Roopa Almonte MD Unavailable [phone] [facility] Unavailable Lydia Bernstein-C Unavailable Rosa Maria Love Unavailable [phone] Augustine Callaway MD Unavailable Paula Reza MD Unavailable Unavailable Keerthi Miner APRN PROFESSOR OF ARCHITECTURE Unavailable +[phone] Herman, Shahida Cummings APRN PROFESSOR OF ARCHITECTURE Unavailable Un available Porsha Michaels APRN PROFESSOR OF ARCHITECTURE Unavailable + Paula Reza MD Unavailable Unavailable Herman, Shahida Cummings APRN PROFESSOR OF ARCHITECTURE Unavailable Un available Daylin Ludwig Unavailable +[phone] Laurel Velasquez MD Unavailable [phone] Daylin Ludwig Unavailable +[phone] Paula Reza MD Unavailable Unavailable Porsha Michaels APRN PROFESSOR OF ARCHITECTURE Unavailable + Laurel Velasquez MD Unavailable + [phone] HermanShahida huerta APRN PROFESSOR OF ARCHITECTURE Unavailable Un available Marilin Montaño PROFESSOR OF ARCHITECTURE Unavailable [phone] Esha Dewitt MD Unavailable + [phone] Heather Mosquera MD Unavailable [phone] Paula Reza MD Unavailable Unavailable Esha Dewitt MD Unavailable [phone] Valdo Escamilla PA-C Unavailable Nohelia Abarca PA-C Unavailable [phone] Heather Mosquera MD Unavailable [phone] Faawd York MD Unavailable [phone] Reason for Visit * Reason Onset Date Comments Refill Request 01/04/2020 Encounter Details Date Type Department Care Team (Late st Contact Info) Description 01/04/2020 MyC Refill [address] [address] Shahida Sutton, DUANE PROFESSOR OF ARCHITECTURE Refill Request Social History Tobacco Use Types [...] AM CDT Legal Sex Male 3:40 AM PRIVATE ADVISOR Gender Identity Male 09/20/2020 8:37 AM [...] Out COVID-19 02/15/2020 02/15/2020 02/16/2020 2:32 PM PRIVATE ADVISOR Rule Out COVID-19 01/05/2021 01/05/2021 01/06/2021 12:57 PM CDT ESBL 01/05/2021 01/05/2021 Rule Out COVID-19 06/30/2021 06/30/2021 07/01/2021 9:34 AM CDT Rule Out COVID-19 07/25/2021 07/25/2021 07/25/2021 8:02 PM CDT Assessment Noted Time PHQ-9 Depression Total Score: 7 08/13/19 20 1:22 PM CDT documented as of this encounter Care Teams Wardrobe Coordinator Relationship Specialty Start Date End Date Shahida Sutton APRN PROFESSOR OF ARCHITECTURE PCP - General Nurse Practitioner 08/17/14 08/04/21 Paula Reza MD PCP - General Internal Medicine 08/05/21 Shahida Sutton APRN PROFESSOR OF ARCHITECTURE Assigned PCP 07/12/14 09/30/21 Carolynn Ramon RN Personal Advocate & Liaison (PAL) 12/17/18 08/07/21 [place] [address] [place] [address] Assigned Musculoskeletal Provider 12/26/19 08/21/20 Brady Lion MD Assigned Heart and Vascular Provider 12/26/19 08/14/20 Nima France PA-C [address] [place] [address] Assigned Surgical Provider 05/19/20 08/21/20 Camille Chandler PA-C [address] [facility] [address] [place] [address] Assigned Neuroscience Provider 05/19/20 09/14/20 Anabela Barakat APRN PROFESSOR OF ARCHITECTURE [address] [place] [address] Assigned Heart and Vascular Provider 08/15/20 08/05/21 Nima France PA-C [address] [place] [address] Assigned Musculoskeletal Provider 08/22/20 11/13/20 [place] [address] [place] [address] Assigned Musculoskeletal Provider 11/14/20 12/04/20 Fawad York MD [address] [facility] [place], [place] [address] Assigned Musculoskeletal Provider 12/05/20 02/05/21 Roopa Almonte MD [address] [facility] [address] [place] [address] Endocrinology, Diabetes, and Metabolism 01/19/21 [place] [address] [facility] [address] [place] [address] Assigned Musculoskeletal Provider 02/06/21 09/16/21 Maryse Burton, PA-C [address] [place] [address] Physician Icer Air Conditioning Dermatology 04/14/21 Marquita Starkey MD [address] [facility] [address] [place], [place] [address] Internal Medicine 05/06/21 05/06/21 Roopa Almonte MD [address] [facility] [address] [place], [place] [address] Hospitalist Endocrinology, Diabetes, and Metabolism 05/30/21 Griffin Joshi MD [address] [facility] [address] [place] [address] Cardiovascular Disease 07/25/21 Rina Magallon, RN Lead Gas Maker 07/29/21 07/11/22 Griffin Joshi MD [address] [place] [address] Assigned Heart and Vascular Provider 08/06/21 10/07/21 Roopa Almonte MD [address] [facility] 200 [place] [address] Assigned Endocrinology Provider 09/10/21 02/24/24 [place] [address] [facility] [place] [address] Assigned Musculoskeletal Provider 09/17/21 10/14/21 Lydia Bernstein PA-C [address] [place] [address] Assigned PCP 10/01/21 10/21/21 Rosa Maria Love [facility] Community Health Worker 10/06/21 07/11/22 [place] [address] [facility] [address] [place] [address] Assigned Musculoskeletal Provider 10/15/21 04/26/23 Paula Reza MD INACTIVE IN [place] 02/02/2024 Assigned PCP 10/22/21 12/23/21 Keerthi Miner, NETWORKER PROFESSOR OF ARCHITECTURE [address] [place] [address] Assigned Heart and Vascular Provider 10/08/21 02/10/22 Shahida Stuton APRN PROFESSOR OF ARCHITECTURE Assigned PCP 12/24/21 03/24/22 Porsha Michaels APRN PROFESSOR OF ARCHITECTURE [address] [place] [address] Assigned Heart and Vascular Provider 02/11/22 05/12/22 Paula Reza MD INACTIVE IN [place] 02/02/2024 Assigned PCP 03/25/22 04/07/22 Shahida Sutton APRN PROFESSOR OF ARCHITECTURE [address] [place] [address] Assigned PCP 04/08/22 06/30/22 Daylin Ludwig, EP [facility] [address] [place] [address] Cardiac Rehabilitation Therapist 05/16/23 Laurel Velasquez MD [address] [place] [address] Assigned Heart and Vascular Provider 05/13/22 06/30/22 Daylin Ludwig, MIKI [facility] [address] [place] [address] Cardiac Rehabilitation Therapist 06/08/22 06/09/23 Paula Reza MD INACTIVE IN [place] 02/02/2024 Assigned PCP 07/01/22 07/07/22 Porsha Michaels APRN PROFESSOR OF ARCHITECTURE [address] [place] [address] Assigned Heart and Vascular Provider 07/01/22 07/07/22 Laurel Velasquez MD [address] [place] [address] Assigned Heart and Vascular Provider 07/08/22 08/04/22 Shahida Sutton APRN PROFESSOR OF ARCHITECTURE Assigned PCP 07/08/22 09/08/22 Marilin Montaño, PROFESSOR OF ARCHITECTURE [address] [place] [address] Assigned Heart and Vascular Provider 08/05/22 02/24/24 Esha Dewitt MD [address] [address] Gastroenterology 09/06/22 Heather Mosquera MD [address] [place] [address] Internal Medicine 09/06/22 Paula Reza MD INACTIVE IN [place] 02/02/2024 Assigned PCP 09/09/22 01/05/23 Esha Dewitt MD [address] [place] [address] Assigned Gastroenterology Provider 09/23/22 04/26/24 Valdo Escamilla PA-C [address] [place] [address] Assigned Neuroscience Provider 09/30/22 04/26/24 Nohelia Abarca PA-C [address] [place] [address] Physician Icer Air Conditioning Gastroenterology 10/03/22 Heather Mosquera MD [address] [facility] [address] [place] [address] Assigned PCP 01/06/23 Fawad York MD 909 [place] [address] Assigned Musculoskeletal Provider 04/27/23 06/25/23 documented as of this encounter
--- OUTSIDE RECORDS SUMMARY | 2024-11-02 15:16 | XMS_ITS | Encounter Summary ---
Author Organization [facility] Address [address] [place] [address] Care Team Providers Care Director Financial Analysis Name Role Phone Mingo Aldana MD Primary Car e Provider HermanShahida APRN CONDUCTOR AND ENGINEER Primary Care Provi ford Unavailable Herman, Shahida Cummings APRN CONDUCTOR AND ENGINEER Unavailable Un available Herman, Shahida Cummings APRN CONDUCTOR AND ENGINEER Unavailable Un available Carolynn Ramon RN Unavailable [phone] Augustine Callaway MD Unavailable Brady Lion MD Unavailable Un available Nima FranceC Unavailable [phone] Camille Chandler-C Unavailable [phone] Anabela Barakat APRN CONDUCTOR AND ENGINEER Unavailable Nima FranceC Unavailable [phone] Basilio Morillo DO Unavailable [phone] Fawad York MD Unavailable [phone] Roopa Almonte MD Unavailable [phone] Augustine Callaway MD Unavailable Maryse Burton PA-C Unavailable [phone] Marquita Starkey MD Unavailable [phone] Roopa Almonte MD Unavailable [phone] Griffin Joshi MD Unavailable Rina Magallon RN Unavailable [phone] Paula Reza MD Primary Care Provider UnavailGriffin Youssef MD Unavailable Roopa Almonte MD Unavailable [phone] [facility] Naik Unavailable Lydia Bernstein PA-C Unavailable Rosa Maria Love Unavailable [phone] Augustine Callaway MD Unavailable Paula Reza MD Unavailable Unavailable Keerthi Miner APRN CONDUCTOR AND ENGINEER Unavailable [phone] Herman, Shahida Cummings APRN CONDUCTOR AND ENGINEER Unavailable Un available Porsha Michaels APRN CONDUCTOR AND ENGINEER Unavailable [phone] Paula Reza MD Unavailable Unavailable Herman, Shahida Cummings APRN CONDUCTOR AND ENGINEER Unavailable Un available Daylin Ludwig Unavailable [phone] Laurel Velasquez MD Unavailable [phone] Daylin Ludwig Unavailable [phone] Paula Reza MD Unavailable Unavailable Porsha Michaels APRN CONDUCTOR AND ENGINEER Unavailable [phone] Laurel Velasquez MD Unavailable [phone] Shahida Sutton APRN CONDUCTOR AND ENGINEER Unavailable Un available Marilin Montaño CONDUCTOR AND ENGINEER Unavailable [phone] Esha Dewitt MD Unavailable [phone] Heather Mosquera MD Unavailable [phone] Paula Reza MD Unavailable Unavailable Esha Dewitt MD Unavailable [phone] Andi Valdo Desouza PA-C Unavailable [phone] Nohelia Abarca PA-C Unavailable [phone] Heather Mosquera MD Unavailable Fawad York MD Unavailable Reason for Visit * Reason Onset Date Comments Refill Request 02/09/2014 ambien Encounter Details Date Type Department Care Team (Late st Contact Info) Description 02/09/2014 MyC Refill [address] [address] Mingo Aldana MD [facility] [address] [place], [place] [id number] Refill Request (ambien) Social History Tobacco Use Types Packs/Day Years Used Date Smoking Tobacco: Former Cigarettes Q uit: 12/09/2006 Cigars Smokeless Tobacco: Never Alcohol Use Standard Drinks/Week Comments Yes 0 (1 standard drink = 0.6 oz pur e alcohol) Very Occasionally Sex and Gender Information Value Date Recorded Sex Assigned at Male 09/20/2020 8:37 AM CDT Legal Sex Male 3:40 AM TRAFFIC REPRESENTATIVE Gender Identity Male 09/20/2020 8:37 AM CDT Sexual Orientation Straight 09/20/2020 8: 37 AM CDT 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 Not on file Not on file Not on jabier e documented as of this encounter Miscellaneous Notes * Telephone Encounter - Shayla Callahan RN - 02/09/2014 5:48 PM CSTMessage from MyChart: Original authorizing provider: Minog Aldana MD, MD Mauro Terrell would like a refill of the following medications: zolpidem (AMBIEN CR) 12.5 MG CR tablet [Mingo Aldana MD, ] Preferred pharmacy: [id number] - [place], [place] - [address] [address] Comment: FIC REPRESENTATIVE documented in this encounter Plan of Treatment Not on file documented as of this encounter Visit Diagnoses Diagnosis Moderate major depression (H) Major depressive disorder, single episode, moderate documented in this encounter Additional Health Concerns Infection Onset Date Last Indicated Resolved Time Rule Out COVID-19 02/15/2020 02/15/2020 02/16/2020 2:32 PM TRAFFIC REPRESENTATIVE Rule Out COVID-19 01/05/2021 01/05/2021 01/06/2021 12:57 PM CDT ESBL 01/05/2021 01/05/2021 Rule Out COVID-19 06/30/2021 06/30/2021 07/01/2021 9:34 AM CDT Rule Out COVID-19 07/25/2021 07/25/2021 07/25/2021 8:02 PM CDT documented as of this encounter Care Teams Director Financial Analysis Relationship Specialty Start Date End Date Mingo Aldana MD PCP - General Family Practice 07/22/09 07/12/14 Shahida Sutton APRN CONDUCTOR AND ENGINEER PCP - General Nurse Practitioner 08/17/14 08/04/21 Shahdia Sutton APRN CONDUCTOR AND ENGINEER PCP - Assigned PCP 07/12/14 05/07/18 Paula Reza MD PCP - General Internal Medicine 08/05/21 Shahida Sutton APRN CONDUCTOR AND ENGINEER Assigned PCP 07/12/14 09/30/21 Carolynn Ramon RN Personal Advocate & Liaison (PAL) 12/17/18 08/07/21 [place] [address] [place] [address] Assigned Musculoskeletal Provider 12/26/19 08/21/20 Brady Lion MD Assigned Heart and Vascular Provider 12/26/19 08/14/20 Nima France PA-C [address] [facility] [address] [place] [address] Assigned Surgical Provider 05/19/20 08/21/20 Camille Chandler PA-C [address] [facility] [address] [place], [place] [address] Assigned Neuroscience Provider 05/19/20 09/14/20 Anabela Barakat APRN CNP [address] [place] [address] Assigned Heart and Vascular Provider 08/15/20 08/05/21 Nima France PA-C [address] [facility] [address] [place] [address] Assigned Musculoskeletal Provider 08/22/20 11/13/20 [place] [address] [facility] [place], [place] [address] Assigned Musculoskeletal Provider 11/14/20 12/04/20 Fawad York MD [address] [place], [place] [address] Assigned Musculoskeletal Provider 12/05/20 02/05/21 Roopa Almonte MD [address] [facility] 200 [place] [address] Endocrinology, Diabetes, and Metabolism 01/19/21 [place] [address] [facility] 300 [place] [address] Assigned Musculoskeletal Provider 02/06/21 09/16/21 Maryse Burton PA-C [address] [place] [address] Physician Vp Global Marketing [employer] Dermatology 04/14/21 Marquita Starkey MD [address] [facility] 200 [place], [place] [address] Internal Medicine 05/06/21 05/06/21 Roopa Almonte MD [address] [facility] [address] [place] [address] Hospitalist Endocrinology, Diabetes, and Metabolism 05/30/21 Griffin Joshi MD [address] [facility] [address] [place] [address] Cardiovascular Disease 07/25/21 Rina Magallon, RN Lead Lan Administrator 07/29/21 07/11/22 Griffin Joshi MD [address] [facility] [place] [address] Assigned Heart and Vascular Provider 08/06/21 10/07/21 Roopa Almonte MD [address] [facility] 200 [place] [address] Assigned Endocrinology Provider 09/10/21 02/24/24 [place] [address] [facility] [place] [address] Assigned Musculoskeletal Provider 09/17/21 10/14/21 Lydia Bernstein PA-C [address] [place] [address] Assigned PCP 10/01/21 10/21/21 Rosa Maria Love [facility] Community Health Worker 10/06/21 [place] [address] [place] [address] Assigned Musculoskeletal Provider 10/15/21 04/26/23 Paula Reza MD [place]NACTIVE IN [place] 02/02/2024 Assigned PCP 10/22/21 12/23/21 Keerthi Miner ELECTRIC REFRIGERATOR PREPARER CONDUCTOR AND ENGINEER [address] [place] [address] Assigned Heart and Vascular Provider 10/08/21 02/10/22 Shahida Sutton, DUANE CONDUCTOR AND ENGINEER Assigned PCP 12/24/21 03/24/22 Porsha Michaels APRN CONDUCTOR AND ENGINEER [address] [place] [address] Assigned Heart and Vascular Provider 02/11/22 05/12/22 Paula Reza MD [place] IN [place] 02/02/2024 Assigned PCP 03/25/22 04/07/22 Shahida Sutton, DUANE CONDUCTOR AND ENGINEER [address] [place] [address] Assigned PCP 04/08/22 06/30/22 Daylin Ludwig, EP [facility] [address] [place] [address] Cardiac Rehabilitation Therapist 05/16/23 Laurel Velasquez MD [address] [address] Assigned Heart and Vascular Provider 05/13/22 06/30/22 Daylin Ludwig, MIKI [facility] [address] [place] [address] Cardiac Rehabilitation Therapist 06/08/22 06/09/23 Paula Reza MD INACTIVE IN [place] 02/02/2024 Assigned PCP 07/01/22 07/07/22 Porsha Michaels APRN CONDUCTOR AND ENGINEER [address] [place] [address] Assigned Heart and Vascular Provider 07/01/22 07/07/22 Laurel Velasquez MD [address] [place] [address] Assigned Heart and Vascular Provider 07/08/22 08/04/22 Shahida Sutton APRN CONDUCTOR AND ENGINEER Assigned PCP 07/08/22 09/08/22 Marilin Montaño, CONDUCTOR AND ENGINEER [address] [address] Assigned Heart and Vascular Provider 08/05/22 02/24/24 Esha Dewitt MD [address] [facility] [address] [place] [address] Gastroenterology 09/06/22 Heather Mosquera MD [address] [place] [address] Internal Medicine 09/06/22 Paula Reza MD INACTIVE IN [place] 02/02/2024 Assigned PCP 09/09/22 01/05/23 Esha Dewitt MD [address] [address] Assigned Gastroenterology Provider 09/23/22 04/26/24 Valdo Escamilla PA-C [address] [place] [address] Assigned Neuroscience Provider 09/30/22 04/26/24 Nohelia Abarca PA-C [address] [place] [address] Physician Vp Global Marketing [employer] Gastroenterology 10/03/22 Heather Mosquera MD [address] [place] [address] Assigned PCP 01/06/23 Fawad York MD [address] [place] [address] Assigned Musculoskeletal Provider 04/27/23 06/25/23 documented as of this encounter
--- OUTSIDE RECORDS SUMMARY | 2024-11-02 15:16 | XMS_ITS | Encounter Summary ---
Author Organization [facility] Address [address] [place] [address] Care Team Providers Care Wad Blanking Press Adjuster Name Role Phone Mingo Aldana MD Primary Car e Provider HermanShahida APRN DIAGNOSTIC TECHNICIAN Primary Care Provi ford Unavailable Herman, Shahida Cummings APRN DIAGNOSTIC TECHNICIAN Unavailable Un available Herman, Shahida Cummings APRN DIAGNOSTIC TECHNICIAN Unavailable Un available Carolynn Ramon RN Unavailable [phone] Augustine Callaway MD Unavailable Brady Lion MD Unavailable Un available Nima FranceC Unavailable [phone] Camille Chandler-C Unavailable [phone] Anabela Barakat APRN DIAGNOSTIC TECHNICIAN Unavailable Nima FranceC Unavailable [phone] Basilio Morillo DO Unavailable [phone] Fawad York MD Unavailable [phone] Roopa Almonte MD Unavailable +[phone] Augustine Callaway MD Unavailable Maryse Burton PA-C Unavailable [phone] Marquita Starkey MD Unavailable [phone] Roopa Almonte MD Unavailable [phone] Griffin Joshi MD Unavailable Rina Magallon RN Unavailable [phone] Paula Reza MD Primary Care Provider UnavailGriffin Youssef MD Unavailable Roopa Almonte MD Unavailable [phone] [facility] Naik Unavailable Lydia Bernstein PA-C Unavailable Rosa Maria Love Unavailable [phone] Augustine Callaway MD Unavailable Paula Reza MD Unavailable Unavailable Keerthi Miner APRN DIAGNOSTIC TECHNICIAN Unavailable [phone] Herman, Shahida Cummings APRN DIAGNOSTIC TECHNICIAN Unavailable Un available Porsha Michaels APRN DIAGNOSTIC TECHNICIAN Unavailable [phone] Paula Reza MD Unavailable Unavailable Herman, Shahida Cummings APRN DIAGNOSTIC TECHNICIAN Unavailable Un available Daylin Ludwig Unavailable [phone] Laurel Velasquez MD Unavailable [phone] Daylin Ludwig Unavailable [phone] Paula Reza MD Unavailable Unavailable Porsha Michaels APRN DIAGNOSTIC TECHNICIAN Unavailable [phone] Laurel Velasquez MD Unavailable [phone] Shahida Sutton APRN DIAGNOSTIC TECHNICIAN Unavailable Un available Marilin Montaño DIAGNOSTIC TECHNICIAN Unavailable [phone] Esha Dewitt MD Unavailable [phone] Heather Mosquera MD Unavailable [phone] Paula Reza MD Unavailable Unavailable Esha Dewitt MD Unavailable [phone] Valdo Escamilla PA-C Unavailable Nohelia Abarca PA-C Unavailable [phone] Heather Mosquera MD Unavailable Fawad York MD Unavailable Reason for Visit * Reason Onset Date Comments Patient Inquiry 07/16/2012 Encounter Details Date Type Department Care Team (Late st Contact Info) Description 07/16/2012 MyC Medical Advice [address] [address] Mingo Aldana MD [facility] Jellycoaster [facility] [address] [place], [place] [id number] Patient Inquiry Social History Tobacco Use Types Packs/Day Years Used Date Smoking Tobacco: Former Cigarettes Q uit: 12/09/2006 Cigars Smokeless Tobacco: Never Comments:occasionally Alcohol Use Standard Drinks/Week Comments Yes 0 (1 standard drink = 0.6 oz pur e alcohol) Very Occasionally Sex and Gender Information Value Date Recorded Sex Assigned at Male 09/20/2020 8:37 AM CDT Legal Sex Male 3:40 AM BIOLOGICAL CHEMIST Gender Identity Male 09/20/2020 8:37 AM CDT [...] COVID-19 02/15/2020 02/15/2020 02/16/2020 2:32 PM BIOLOGICAL CHEMIST Rule Out COVID-19 01/05/2021 01/05/2021 01/06/2021 12:57 PM CDT ESBL 01/05/2021 01/05/2021 Rule Out COVID-19 06/30/2021 06/30/2021 07/01/2021 9:34 AM CDT Rule Out COVID-19 07/25/2021 07/25/2021 07/25/2021 8:02 PM CDT documented as of this encounter Care Teams Wad Blanking Press Adjuster Relationship Specialty Start Date End Date Mingo Aldana MD PCP - General Family Practice 07/22/09 07/12/14 Shahida Sutton APRN DIAGNOSTIC TECHNICIAN PCP - General Nurse Practitioner 08/17/14 08/04/21 Shahida Sutton APRN DIAGNOSTIC TECHNICIAN PCP - Assigned PCP 07/12/14 05/07/18 Paula Reza MD PCP - General Internal Medicine 08/05/21 Shahida Sutton APRN DIAGNOSTIC TECHNICIAN Assigned PCP 07/12/14 09/30/21 Carolynn Ramon, KASIE Personal Advocate & Liaison (PAL) 12/17/18 08/07/21 [place] [address] [place] [address] Assigned Musculoskeletal Provider 12/26/19 08/21/20 Brady Lion MD Assigned Heart and Vascular Provider 12/26/19 08/14/20 Nima France PA-C [address] [place] [address] Assigned Surgical Provider 05/19/20 08/21/20 Camille Chandler PA-C [address] [facility] [address] [place], [place] [address] Assigned Neuroscience Provider 05/19/20 09/14/20 Anabela Barakat APRN DIAGNOSTIC TECHNICIAN [address] [place] [address] Assigned Heart and Vascular Provider 08/15/20 08/05/21 Nima France PA-C [address] [facility] [address] [place] [address] Assigned Musculoskeletal Provider 08/22/20 11/13/20 [place] [address] [place] [address] Assigned Musculoskeletal Provider 11/14/20 12/04/20 Fawad York MD [address] [place] [address] Assigned Musculoskeletal Provider 12/05/20 02/05/21 Roopa Almonte MD [address] [facility] [address] [place] [address] Endocrinology, Diabetes, and Metabolism 01/19/21 [place] [address] [facility] [address] [place], [place] [address] Assigned Musculoskeletal Provider 02/06/21 09/16/21 Maryse Burton PA-C [address] [place], [place] [address] Physician Bedspread Folder Dermatology 04/14/21 Marquita Starkey MD [address] [facility] [address] [place] [address] Internal Medicine 05/06/21 05/06/21 Roopa Almonte MD [address] [facility] [address] [place] [address] Hospitalist Endocrinology, Diabetes, and Metabolism 05/30/21 Griffin Joshi MD [address] [place] [address] Cardiovascular Disease 07/25/21 Rina Magallon RN Lead Network Relay Tester 07/29/21 07/11/22 Griffin Joshi MD [address] [place] [address] Assigned Heart and Vascular Provider 08/06/21 10/07/21 Roopa Almonte MD [address] [place], [place] [address] Assigned Endocrinology Provider 09/10/21 02/24/24 [place] [address] [facility] [place] [address] Assigned Musculoskeletal Provider 09/17/21 10/14/21 Lydia Bernstein PA-C [address] [place] [address] Assigned PCP 10/01/21 10/21/21 Rosa Maria Love, [facility] Community Health Worker 10/06/21 [place] [address] [place] [address] Assigned Musculoskeletal Provider 10/15/21 04/26/23 Paula Reza MD [place] IN [place] 02/02/2024 Assigned PCP 10/22/21 12/23/21 Keerthi Miner APRN DIAGNOSTIC TECHNICIAN [address] [place] [address] Assigned Heart and Vascular Provider 10/08/21 02/10/22 Shahida Sutton APRN DIAGNOSTIC TECHNICIAN Assigned PCP 12/24/21 03/24/22 Porsha Michaels APRN DIAGNOSTIC TECHNICIAN [address] [address] Assigned Heart and Vascular Provider 02/11/22 05/12/22 Paula Reza MD [place]NACTIVE IN [place] 02/02/2024 Assigned PCP 03/25/22 04/07/22 Shahida Sutton APRN DIAGNOSTIC TECHNICIAN [address] [place] [address] Assigned PCP 04/08/22 06/30/22 Daylin Ludwig EP [facility] [address] [address] Cardiac Rehabilitation Therapist 05/16/23 Laurel Velasquez MD [address] [address] Assigned Heart and Vascular Provider 05/13/22 06/30/22 Daylin Ludwig EP [facility] [address] [place] [address] Cardiac Rehabilitation Therapist 06/08/22 06/09/23 Paula Reza MD INACTIVE IN [place] 02/02/2024 Assigned PCP 07/01/22 07/07/22 Porsha Michaels APRN DIAGNOSTIC TECHNICIAN [address] [place] [address] Assigned Heart and Vascular Provider 07/01/22 07/07/22 Laurel Velasquez MD [address] [place] [address] Assigned Heart and Vascular Provider 07/08/22 08/04/22 Shahida Sutton APRN DIAGNOSTIC TECHNICIAN Assigned PCP 07/08/22 09/08/22 Marilin Montaño, DIAGNOSTIC TECHNICIAN [address] [place] [address] Assigned Heart and Vascular Provider 08/05/22 02/24/24 Esha Dewitt MD [address] [place] [address] [address] [place], [place] [address] Gastroenterology 09/06/22 Heather Mosquera MD [address] [place] [address] Internal Medicine 09/06/22 Paula Reza MD INACTIVE IN [place] 02/02/2024 Assigned PCP 09/09/22 01/05/23 Esha Dewitt MD [address] [facility] 36 [place] [address] Assigned Gastroenterology Provider 09/23/22 04/26/24 Valdo Escamilla PA-C [address] [place] [address] Assigned Neuroscience Provider 09/30/22 04/26/24 Nohelia Abarca PA-C [address] [place] [address] Physician Bedspread Folder Gastroenterology 10/03/22 Heather Mosquera MD [address] [place] [address] Assigned PCP 01/06/23 Fawad York MD [address] [place] [address] Assigned Musculoskeletal Provider 04/27/23 06/25/23 documented as of this encounter
--- OUTSIDE RECORDS SUMMARY | 2024-11-02 15:16 | XMS_ITS | Encounter Summary ---
Author Organization [facility] Address [address] [place] [address] Care Team Providers Care Product Manufacturing Professional Name Role Phone Roopa Almonte MD Unavailable [phone] Maryse Burton PA-C Unavailable [phone] Roopa Almonte MD Unavailable [phone] Griffin Joshi MD Unavailable Rina Magallon RN Unavailable [phone] Paula Reza MD Primary Care Provider Unavailabl e Roopa Almonte MD Unavailable [phone] Rosa Maria Love Unavailable [phone] Augustine Callaway MD Unavailable Shahida Sutton APRN VEHICLE CALIBRATION ENGINEER Unavailable Un available Porsha Michaels APRN VEHICLE CALIBRATION ENGINEER Unavailable [phone] Paula Reza MD Unavailable Unavailable Shahida Sutton APRN VEHICLE CALIBRATION ENGINEER Unavailable Un available Daylin Ludwig EP Unavailable [phone] Laurel Velasquez MD Unavailable [phone] Daylin Ludwig EP Unavailable [phone] Paula Reza MD Unavailable Unavailable Brando Porsha ZEPEDA VEHICLE CALIBRATION ENGINEER Unavailable [phone] Laurel Velasquez MD Unavailable [phone] Herman Shahidaprincess Cummings APRN VEHICLE CALIBRATION ENGINEER Unavailable Un available GerryyamilMarilin VEHICLE CALIBRATION ENGINEER Unavailable [phone] Esha Dewitt MD Unavailable [phone] Heather Mosquera MD Unavailable [phone] Paula Reza MD Unavailable Unavailable Esha Dewitt MD Unavailable [phone] Valdo Escamilla-C Unavailable [phone] Nohelia AbarcaC Unavailable [phone] Heather Mosquera MD Unavailable [phone] Fawad York MD Unavailable [phone] Encounter Details Date Type Department Care Team (Late st Contact Info) Description 02/27/2022 MyC Medical Advice [facility] [address] [facility] [address] [place] [address] Carmen Prince, [facility] Social History Tobacco Use Types Packs/Day Years [...] CDT Legal Sex Male 3:40 AM MANAGER REVIEW Gender Identity Male 09/20/2020 8:37 AM CDT Sexual Orientation Straight 09/20/2020 8: 37 AM CDT 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 No / Unsure 02/21/2022 12:25 PM MANAGER REVIEW documented as of this encounter Plan of [...] Optimize Self-Care Behaviors 90%(03/23/19 3:12 PM MANAGER REVIEW) Angelita Diaz RD Note: I will check [...] documented as of this encounter Care Teams Product Manufacturing Professional Relationship Specialty Start Date End Date Paula Reza MD PCP - General Internal Medicine 08/05/21 Roopa Almonte MD [address] [facility] [address] [address] [place], [place] [address] Endocrinology, Diabetes, and Metabolism 01/19/21 Maryse Burton, PAAna MariaC [address] [place] [address] Physician Carpenter Cradle And Dolly Dermatology 04/14/21 Roopa Almonte MD [address] [place] [address] Hospitalist Endocrinology, Diabetes, and Metabolism 05/30/21 Griffin Joshi MD [address] [place] [address] Cardiovascular Disease 07/25/21 Rina Magallon, RN Lead Composite Boat Builder 07/29/21 07/11/22 Roopa Almonte MD [address] [facility] [address] [place], [place] [address] Assigned Endocrinology Provider 09/10/21 02/24/24 Rosa Maria Love CHW Community Health Worker 10/06/21 07/11/22 [place] [address] [facility] [address] [place] [address] Assigned Musculoskeletal Provider 10/15/21 04/26/23 Shahida Sutton APRN VEHICLE CALIBRATION ENGINEER Assigned PCP 12/24/21 03/24/22 Porsha Michaels APRN VEHICLE CALIBRATION ENGINEER [address] [address] Assigned Heart and Vascular Provider 02/11/22 05/12/22 Paula Reza MD [place]NACTIVE IN [place] 02/02/2024 Assigned PCP 03/25/22 04/07/22 Shahida Sutton APRN VEHICLE CALIBRATION ENGINEER [place] IN [place] 02/02/2024 Assigned PCP 04/08/22 06/30/22 Daylin Ludwig EP [facility] [address] [address] Cardiac Rehabilitation Therapist 05/16/23 Laurel Velasquez MD [address] [address] Assigned Heart and Vascular Provider 05/13/22 06/30/22 Daylin Ludwig EP [facility] [address] [place] [address] Cardiac Rehabilitation Therapist 06/08/22 06/09/23 Paula Reza MD [place] IN [place] 02/02/2024 Assigned PCP 07/01/22 07/07/22 Porsha Michaels, HEALTH PRACTICE MANAGER VEHICLE CALIBRATION ENGINEER [address] [place] [address] Assigned Heart and Vascular Provider 07/01/22 07/07/22 Laurel Velasquez MD [address] [place] [address] Assigned Heart and Vascular Provider 07/08/22 08/04/22 Shahida Sutton, DUANE VEHICLE CALIBRATION ENGINEER Assigned PCP 07/08/22 09/08/22 Marilin Montaño, VEHICLE CALIBRATION ENGINEER [address] [place] [address] Assigned Heart and Vascular Provider 08/05/22 02/24/24 Esha Dewitt MD [address] [place] [address] Gastroenterology 09/06/22 Heather Mosquera MD [address] [place] [address] Internal Medicine 09/06/22 Paula Reza MD [place]NACTIVE IN [place] 02/02/2024 Assigned PCP 09/09/22 01/05/23 Esha Dewitt MD [address] [facility] 36 [place] [address] Assigned Gastroenterology Provider 09/23/22 04/26/24 Valdo Escamilla PA-C [address] [place] [address] Assigned Neuroscience Provider 09/30/22 04/26/24 Nohelia Abarca PA-C [address] [place] [address] Physician Carpenter Cradle [employer] Gastroenterology 10/03/22 Heather Mosquera MD [address] [place] [address] Assigned PCP 01/06/23 Fawad York MD [address] [place], [place] [address] Assigned Musculoskeletal Provider 04/27/23 06/25/23 documented as of this encounter
--- OUTSIDE RECORDS SUMMARY | 2024-11-02 15:16 | XMS_ITS | Encounter Summary ---
Author Organization [facility] Address [address] [place] [address] Care Team Providers Care Materials Planning Analyst Name Role Phone Roopa Almonte MD Unavailable [phone] Maryse Burton PA-C Unavailable [phone] Roopa Almonte MD Unavailable [phone] Griffin Joshi MD Unavailable Rina Magallon RN Unavailable [phone] Paula Reza MD Primary Care Provider Unavailabl e Roopa Almonte MD Unavailable [phone] Rosa Maria Love Unavailable [phone] Augustine Callaway MD Unavailable Shahida Sutton APRN SCHOOL PLANT CONSULTANT Unavailable Un available Porsha Michaels APRN SCHOOL PLANT CONSULTANT Unavailable [phone] Paula Reza MD Unavailable Unavailable Shahida Sutton APRN SCHOOL PLANT CONSULTANT Unavailable Un available Daylin Ludwig EP Unavailable [phone] Laurel Velasquez MD Unavailable [phone] Daylin Ludwig EP Unavailable +[phone] Paula Reza MD Unavailable Unavailable Brando Porsha ZEPEDA SCHOOL PLANT CONSULTANT Unavailable [phone] Laurel Velasquez MD Unavailable [phone] Shahida Sutton APRN SCHOOL PLANT CONSULTANT Unavailable Un available GerryyamilMarilin SCHOOL PLANT CONSULTANT Unavailable [phone] Esha Dewitt MD Unavailable [phone] Heather Mosquera MD Unavailable [phone] Paula Reza MD Unavailable Unavailable Esha Dewitt MD Unavailable [phone] Valdo Escamilla PA-C Unavailable [phone] Nohelia Abarca PA-C Unavailable [phone] Heather Mosquera MD Unavailable [phone] Fawad York MD Unavailable [phone] Reason for Visit * Reason Onset Date Comments Refill Request 03/01/2022 zolpidem ER (AMB IEN CR) 12.5 MG CR tablet Encounter Details Date Type Department Care Team (Late st Contact Info) Description 03/01/2022 Refill [facility] [address] [facility] [address] [place] [id number] Paula Reza MD INACTIVE IN [place] 02/02/2024 Refill Request (zolpidem ER (AMBIEN CR) 12.5 [...] AM CDT Legal Sex Male 3:40 AM SENIOR PATIENT ACCOUNT REPRESENTATIVE Gender Identity Male 09/20/2020 8:37 AM CDT Sexual Orientation Straight 09/20/2020 8: 37 AM CDT 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 No / Unsure 02/21/2022 12:25 PM SENIOR PATIENT ACCOUNT REPRESENTATIVE documented as of this encounter Miscellaneous Notes * Telephone Encounter - Shayla Callahan RN - 03/02/2022 1:14 PM CST Routing refill request to provider for review/approval because: Drug not on the [facility] ref[place] Shayla Callahan RN, BSN OR PATIENT ACCOUNT REPRESENTATIVE documented in this encounter Plan of [...] to Optimize Self-Care Behaviors 90%(03/23/19 3:12 PM SENIOR PATIENT ACCOUNT REPRESENTATIVE) Angelita Diaz RD Note: I will [...] documented as of this encounter Care Teams Materials Planning Analyst Relationship Specialty Start Date End Date Paula Reza MD PCP - General Internal Medicine 08/05/21 Roopa Almonte MD [address] [facility] 200 [place] [address] Endocrinology, Diabetes, and Metabolism 01/19/21 Maryse Burton, PA-C [address] [place] [address] Physician Gis Database Administrator Dermatology 04/14/21 Roopa Almonte MD [address] [facility] 200 [place] [address] Hospitalist Endocrinology, Diabetes, and Metabolism 05/30/21 Griffin Joshi MD [address] [facility] [address] [place] [address] Cardiovascular Disease 07/25/21 Rina Magallon, RN Lead Food Service Assistant 07/29/21 07/11/22 Roopa Almonte MD [address] [facility] 200 [place], [place] [address] Assigned Endocrinology Provider 09/10/21 02/24/24 Rosa Maria Love CHW Community Health Worker 10/06/21 07/11/22 [place] [address] [facility] [address] [place] [address] Assigned Musculoskeletal Provider 10/15/21 04/26/23 Shahida Sutton APRN SCHOOL PLANT CONSULTANT Assigned PCP 12/24/21 03/24/22 Porsha Michaels APRN SCHOOL PLANT CONSULTANT [address] [address] Assigned Heart and Vascular Provider 02/11/22 05/12/22 Paula Reza MD INACTIVE IN [place] 02/02/2024 Assigned PCP 03/25/22 04/07/22 Shahida Sutton APRN SCHOOL PLANT CONSULTANT [place]NACTIVE IN [place] 02/02/2024 Assigned PCP 04/08/22 06/30/22 Daylin Ludwig, [facility] [address] [place] [address] Cardiac Rehabilitation Therapist 05/16/23 Laurel Velasquez MD [address] [place] [address] Assigned Heart and Vascular Provider 05/13/22 06/30/22 Daylin Ludwig, [facility] [address] [place] [address] Cardiac Rehabilitation Therapist 06/08/22 06/09/23 Paula Reza MD [place]NACTIVE IN [place] 02/02/2024 Assigned PCP 07/01/22 07/07/22 Porsha Michaels APRN SCHOOL PLANT CONSULTANT [address] [place] [address] Assigned Heart and Vascular Provider 07/01/22 07/07/22 Laurel Velasquez MD [address] [place] [address] Assigned Heart and Vascular Provider 07/08/22 08/04/22 Shahida Sutton APRN SCHOOL PLANT CONSULTANT Assigned PCP 07/08/22 09/08/22 Marilin Montaño, SCHOOL PLANT CONSULTANT [address] [place] [address] Assigned Heart and Vascular Provider 08/05/22 02/24/24 Esha Dewitt MD [address] [facility] 36 [place] [address] Gastroenterology 09/06/22 Heather Mosquera MD [address] [place] [address] Internal Medicine 09/06/22 Paula Reza MD [place]NACTIVE IN [place] 02/02/2024 Assigned PCP 09/09/22 01/05/23 Esha Dewitt MD [address] [address] Assigned Gastroenterology Provider 09/23/22 04/26/24 Valdo Escamilla PA-C [address] [place] [address] Assigned Neuroscience Provider 09/30/22 04/26/24 Nohelia Abarca PA-C [address] [place] [address] Physician Gis Database Administrator Gastroenterology 10/03/22 Heather Mosquera MD [address] [place] [address] Assigned PCP 01/06/23 Fawad York MD [address] [place] [address] Assigned Musculoskeletal Provider 04/27/23 06/25/23 documented as of this encounter
--- OUTSIDE RECORDS SUMMARY | 2024-11-02 15:16 | XMS_ITS | Encounter Summary ---
Author Organization [place] Address [address] [place] [address] Care Team Providers Care Film Technician Name Role Phone Mingo Aldana MD Primary Car e Provider HermanShahida APRN STILL RUNNER Primary Care Provi ford Unavailable Herman, Shahida Cummings APRN STILL RUNNER Unavailable Un available Herman, Shahida Cummings APRN STILL RUNNER Unavailable Un available Carolynn Ramon RN Unavailable [phone] Augustine Callaway MD Unavailable Brady Lion MD Unavailable Un available Nima FranceC Unavailable [phone] Camille Chandler-C Unavailable [phone] Anabela Barakat APRN STILL RUNNER Unavailable Nima FranceC Unavailable [phone] Basilio Morillo DO Unavailable [phone] Fawad York MD Unavailable [phone] Roopa Almonte MD Unavailable [phone] Augustine Callaway MD Unavailable Maryse Burton PA-C Unavailable [phone] Marquita Starkey MD Unavailable [phone] Roopa Almonte MD Unavailable [phone] Griffin Joshi MD Unavailable Rina Magallon RN Unavailable [phone] Paula Reza MD Primary Care Provider UnavailGriffin Youssef MD Unavailable Roopa Almonte MD Unavailable [phone] [facility] Naik Unavailable Lydia Bernstein PA-C Unavailable Rosa Maria Love Unavailable [phone] Augustine Callaway MD Unavailable Paula Reza MD Unavailable Unavailable Keerthi Miner APRN STILL RUNNER Unavailable [phone] Herman, Shahida Cummings APRN STILL RUNNER Unavailable Un available Porsha Michaels APRN STILL RUNNER Unavailable [phone] Paula Reza MD Unavailable Unavailable Herman, Shahida Cummings APRN STILL RUNNER Unavailable Un available Daylin Ludwig Unavailable [phone] Laurel Velasquez MD Unavailable [phone] Daylin Ludwig Unavailable [phone] Paula Reza MD Unavailable Unavailable Porsha Michaels APRN STILL RUNNER Unavailable [phone] Laurel Velasquez MD Unavailable [phone] Shahida Sutton APRN STILL RUNNER Unavailable Un available Marilin Montaño STILL RUNNER Unavailable [phone] Esha Dewitt MD Unavailable [phone] Heather Mosquera MD Unavailable [phone] Paula Reza MD Unavailable Unavailable Esha Dewitt MD Unavailable [phone] Valdo Escamilla PA-C Unavailable Nohelia Abarca PA-C Unavailable [phone] Heather Mosquera MD Unavailable Fawad York MD Unavailable Encounter Details Date Type Department Care Team (Late st Contact Info) Description 11/13/2011 MyC Medical Advice [address] [phone] Mingo Aldana MD [facility] [employer] [facility] [address] [place] [address] Social History Tobacco Use Types Packs/Day Years Used Date Smoking Tobacco: Former Cigarettes 0.5 25 1 - 12/09/2006 Cigars Smokeless Tobacco: Never Comments:occasionally Alcohol Use Standard Drinks/Week Comments Yes 0 (1 standard drink = 0.6 oz pur e alcohol) Very Occasionally Sex and Gender Information Value Date Recorded Sex Assigned at Male 09/20/2020 8:37 AM CDT Legal 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 Gender Identity Male 09/20/2020 8:37 AM CDT Sexual Orientation Straight 09/20/2020 8: 37 AM CDT documented as of this encounter Miscellaneous Notes * Telephone Encounter - Kendal Ramirez - 11/13/2011 1:43 PM CDT See [employer] message documented in this encounter Plan of Treatment Not on file documented as of this encounter Visit Diagnoses Not on filedocumented in this encounter Additional Health Concerns Infection Onset Date Last Indicated Resolved Time Rule Out COVID-19 02/15/2020 02/15/2020 02/16/2020 2:32 PM ELASTIC ATTACHER ZIGZAG Rule Out COVID-19 01/05/2021 01/05/2021 01/06/2021 12:57 PM CDT ESBL 01/05/2021 01/05/2021 Rule Out COVID-19 06/30/2021 06/30/2021 07/01/2021 9:34 AM CDT Rule Out COVID-19 07/25/2021 07/25/2021 07/25/2021 8:02 PM CDT documented as of this encounter Care Teams Film Technician Relationship Specialty Start Date End Date Mingo Aldana MD PCP - General Family Practice 07/22/09 07/12/14 Shahida Sutton APRN STILL RUNNER PCP - General Nurse Practitioner 08/17/14 08/04/21 Shahida Sutton APRN STILL RUNNER PCP - Assigned PCP 07/12/14 05/07/18 Paula Reza MD PCP - General Internal Medicine 08/05/21 Shahida Sutton APRN STILL RUNNER Assigned PCP 07/12/14 09/30/21 Carolynn Ramon, KASIE Personal Advocate & Liaison (PAL) 12/17/18 08/07/21 [place] [address] [facility] [place] [address] Assigned Musculoskeletal Provider 12/26/19 08/21/20 Brady Lion MD Assigned Heart and Vascular Provider 12/26/19 08/14/20 Nima France PA-C [address] [facility] [place] [address] Assigned Surgical Provider 05/19/20 08/21/20 Camille Chandler PA-C [address] [facility] [place] [address] [place] [address] Assigned Neuroscience Provider 05/19/20 09/14/20 Anabela Barakat APRN CNP [address] [place] [address] Assigned Heart and Vascular Provider 08/15/20 08/05/21 Nima France PA-C [address] [facility] [address] [place] [address] Assigned Musculoskeletal Provider 08/22/20 11/13/20 [place] [address] [place], [place] [address] Assigned Musculoskeletal Provider 11/14/20 12/04/20 Fawad York MD [address] [place], [place] [address] Assigned Musculoskeletal Provider 12/05/20 02/05/21 Roopa Almonte MD [address] [facility] 200 [place], [place] [address] Endocrinology, Diabetes, and Metabolism 01/19/21 [place] [address] [facility] [address] [place] [address] Assigned Musculoskeletal Provider 02/06/21 09/16/21 Maryse Burton PA-C [address] [place] [address] Commissioner Dermatology 2/10/22 Marquita Starkey MD [address] [facility] 200 [place] [address] Internal Medicine 05/06/21 05/06/21 Roopa Almonte MD [address] [facility] [address] [place] [address] Hospitalist Endocrinology, Diabetes, and Metabolism 05/30/21 Griffin Joshi MD [address] [place] [address] Cardiovascular Disease 07/25/21 Rina Magallon RN Lead Patent Agent 07/29/21 07/11/22 Griffin Joshi MD [address] [place] [address] Assigned Heart and Vascular Provider 08/06/21 10/07/21 Roopa Almonte MD [address] [facility] 200 [place] [address] Assigned Endocrinology Provider 09/10/21 02/24/24 [place] [address] [facility] [place] [address] Assigned Musculoskeletal Provider 09/17/21 10/14/21 Lydia Bernstein PA-C [address] [place] [address] Assigned PCP 10/01/21 10/21/21 Rosa Maria Love, [facility] Community Health Worker 10/06/21 [place] [address] [place] [address] Assigned Musculoskeletal Provider 10/15/21 04/26/23 Paula Reza MD [place] 02/02/2024 Assigned PCP 10/22/21 12/23/21 Keerthi Miner FORMING MACHINE UPKEEP MECHANIC HELPER STILL RUNNER [address] [place] [address] Assigned Heart and Vascular Provider 10/08/21 02/10/22 Shahida Sutton APRN STILL RUNNER Assigned PCP 12/24/21 03/24/22 Porsha Michaels APRN STILL RUNNER [address] [place] [address] Assigned Heart and Vascular Provider 02/11/22 05/12/22 Paula Reza MD [place] 02/02/2024 Assigned PCP 03/25/22 04/07/22 Shahida Sutton APRN STILL RUNNER [address] [place] [address] Assigned PCP 04/08/22 06/30/22 Daylin Ludwig EP [facility] [address] [place] [address] Cardiac Rehabilitation Therapist 05/16/23 Laurel Velasquez MD [address] [place] [address] Assigned Heart and Vascular Provider 05/13/22 06/30/22 Daylin Ludwig EP [facility] [address] [place] [address] Cardiac Rehabilitation Therapist 06/08/22 06/09/23 aPula Reza MD [place] 02/02/2024 Assigned PCP 07/01/22 07/07/22 Porsha Michaels APRN STILL RUNNER [address] [place] [address] Assigned Heart and Vascular Provider 07/01/22 07/07/22 Laurel Velasquez MD [address] [place] [address] Assigned Heart and Vascular Provider 07/08/22 08/04/22 Shahida Sutton APRN STILL RUNNER Assigned PCP 07/08/22 09/08/22 Marilin Montaño, STILL RUNNER [address] [place] [address] Assigned Heart and Vascular Provider 08/05/22 02/24/24 Esha Dewitt MD [address] [place] [address] 36 [place], [place] [address] Gastroenterology 09/06/22 Heather Mosquera MD [address] [place] [address] Internal Medicine 09/06/22 Paula Reza MD [place] 02/02/2024 Assigned PCP 09/09/22 01/05/23 Esha Dewitt MD [address] [facility] 36 [place] [address] Assigned Gastroenterology Provider 09/23/22 04/26/24 Valdo Escamilla PA-C [address] [place] [address] Assigned Neuroscience Provider 09/30/22 04/26/24 Nohelia Abarca PA-C [address] [place] [address] Commissioner Gastroenterology 10/03/22 Heather Mosquera MD [address] [place] [address] Assigned PCP 01/06/23 Fawad York MD [address] [place] [address] Assigned Musculoskeletal Provider 04/27/23 06/25/23 documented as of this encounter
--- OUTSIDE RECORDS SUMMARY | 2024-11-02 15:16 | XMS_ITS | Encounter Summary ---
Author Organization [place] Address [address] [place] [address] Care Team Providers Care Railcar Brake Operator Name Role Phone Mingo Aldana MD Primary Car e Provider HermanShahida APRN SENIOR PHYSICIAN Primary Care Provi ford Unavailable Herman, Shahida Cummings APRN SENIOR PHYSICIAN Unavailable Un available Ehrman, Shahida Cummings APRN SENIOR PHYSICIAN Unavailable Un available Carolynn Ramon RN Unavailable [phone] Augustine Callaway MD Unavailable Brady Lion MD Unavailable Un available Nima FranceC Unavailable [phone] Camille Chandler-C Unavailable [phone] Anabela Barakat APRN SENIOR PHYSICIAN Unavailable Nima FranceC Unavailable [phone] Basilio Morillo DO Unavailable [phone] Fawad York MD Unavailable [phone] Roopa Almonte MD Unavailable [phone] Augustine Callaway MD Unavailable Maryse Burton PA-C Unavailable [phone] Marquita Starkey MD Unavailable [phone] Roopa Almonte MD Unavailable [phone] Griffin Joshi MD Unavailable Rina Magallon RN Unavailable [phone] Paula Reza MD Primary Care Provider UnavailGriffin Youssef MD Unavailable Roopa Almonte MD Unavailable [phone] [facility] Basilio Naik Unavailable Lydia Bernstein PA-C Unavailable Rosa Maria Love Unavailable [phone] Augustine Callaway MD Unavailable Paula Reza MD Unavailable Unavailable Keerthi Miner APRN SENIOR PHYSICIAN Unavailable [phone] Herman, Shahida Cummings APRN SENIOR PHYSICIAN Unavailable Un available Porsha Michaels APRN SENIOR PHYSICIAN Unavailable [phone] Paula Reza MD Unavailable Unavailable Herman, Shahida Cummings APRN SENIOR PHYSICIAN Unavailable Un available Daylin Ludwig Unavailable [phone] Laurel Velasquez MD Unavailable [phone] Daylin Ludwig Unavailable [phone] Paula Reza MD Unavailable Unavailable Porsha Michaels APRN SENIOR PHYSICIAN Unavailable [phone] Laurel Velasquez MD Unavailable [phone] Shahida Sutton APRN SENIOR PHYSICIAN Unavailable Un available Marilin Montaño SENIOR PHYSICIAN Unavailable [phone] Esha Dewitt MD Unavailable [phone] Heather Mosquera MD Unavailable [phone] Paula Reza MD Unavailable Unavailable Esha Dewitt MD Unavailable [phone] Andi Valdo Desouza PA-C Unavailable Nohelia Abarca PA-C Unavailable [phone] Eveline Heathervictoriano Sands MD Unavailable Fawad York MD Unavailable Reason for Visit * Reason Onset Date Comments Pt. Information/instruction 07/05/2012 MRI Encounter Details Date Type Department Care Team (Late st Contact Info) Description 07/05/2012 MyC Medical Advice [address], [address] [place] [address] Mingo Aldana MD [facility] [place] [facility] [address] [place] [address] Pt. 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 I informed Mauro by Montez reply. (Jing in referrals) * Telephone Encounter - Mingo Aldana MD - 07/05/2012 3:59 PM CDT Hi, patient needs open sided MRI Can we do [facility] for his shoulder? Mingo Aldana MD [facility] documented in this encounter Plan of Treatment Not on file documented as of this encounter Visit Diagnoses Not on filedocumented in this encounter Additional Health Concerns Infection Onset Date Last Indicated Resolved Time Rule Out COVID-19 02/15/2020 02/15/2020 02/16/2020 2:32 PM IRONWORKER Rule Out COVID-19 01/05/2021 01/05/2021 01/06/2021 12:57 PM CDT ESBL 01/05/2021 01/05/2021 Rule Out COVID-19 06/30/2021 06/30/2021 07/01/2021 9:34 AM CDT Rule Out COVID-19 07/25/2021 07/25/2021 07/25/2021 8:02 PM CDT documented as of this encounter Care Teams Railcar Brake Operator Relationship Specialty Start Date End Date Mingo Aldana MD PCP - General Family Practice 07/22/09 07/12/14 Shahida Sutton APRN SENIOR PHYSICIAN PCP - General Nurse Practitioner 08/17/14 08/04/21 Shahida Sutton APRN SENIOR PHYSICIAN PCP - Assigned PCP 07/12/14 05/07/18 Paula Reza MD PCP - General Internal Medicine 08/05/21 Shahida Sutton APRN SENIOR PHYSICIAN Assigned PCP 07/12/14 09/30/21 Carolynn Ramon RN Personal Advocate & Liaison (PAL) 12/17/18 08/07/21 [place] [address] [place] [address] Assigned Musculoskeletal Provider 12/26/19 08/21/20 Brady Lion MD Assigned Heart and Vascular Provider 12/26/19 08/14/20 Nima France PA-C [address] [facility] [address] [place] [address] Assigned Surgical Provider 05/19/20 08/21/20 Camille Chandler PA-C [address] [facility] [address] [address] [place], [place] [address] Assigned Neuroscience Provider 05/19/20 09/14/20 Anabela Barakat APRN SENIOR PHYSICIAN [address] [place] [address] Assigned Heart and Vascular Provider 08/15/20 08/05/21 Nima France PA-C [address] [facility] [address] [address] [place] [address] Assigned Musculoskeletal Provider 08/22/20 11/13/20 [place] [address] [facility] [place] [address] Assigned Musculoskeletal Provider 11/14/20 12/04/20 Fawad York MD 9 [place] [address] Assigned Musculoskeletal Provider 12/05/20 02/05/21 Roopa Almonte MD [address] [facility] 200 [place] [address] Endocrinology, Diabetes, and Metabolism 01/19/21 [place] [address] [facility] 300 [place] [address] Assigned Musculoskeletal Provider 02/06/21 09/16/21 Maryse Burton PA-C [address] [place] [address] Physician Pickle Water Pump Operator Dermatology 04/14/21 Marquita Starkey MD [address] [address] Internal Medicine 05/06/21 05/06/21 Roopa Almonte MD [address] [facility] 200 [place] [address] Hospitalist Endocrinology, Diabetes, and Metabolism 05/30/21 Griffin Joshi MD [address] [facility]00 [place] [address] Cardiovascular Disease 07/25/21 Rina Magallon, RN Lead Billing Spec 07/29/21 07/11/22 Griffin Joshi MD [address] [facility] [address] [place] [address] Assigned Heart and Vascular Provider 08/06/21 10/07/21 Roopa Almonte MD [address] [facility] 200 [place] [address] Assigned Endocrinology Provider 09/10/21 02/24/24 [place] [address] [facility] [place] [address] Assigned Musculoskeletal Provider 09/17/21 10/14/21 Lydia Bernstein, HUYC [address] [place], [place] [address] Assigned PCP 10/01/21 10/21/21 Rosa Maria Love [facility] Community Health Worker 10/06/21 [place] [address] [place] [address] Assigned Musculoskeletal Provider 10/15/21 04/26/23 Paula Reza MD [place]NACTIVE IN [place] 02/02/2024 Assigned PCP 10/22/21 12/23/21 Keerthi Miner APRN SENIOR PHYSICIAN [address] [place] [address] Assigned Heart and Vascular Provider 10/08/21 02/10/22 Shahida Sutton APRN SENIOR PHYSICIAN Assigned PCP 12/24/21 03/24/22 Porsha Michaels APRN SENIOR PHYSICIAN [address] [place] [address] Assigned Heart and Vascular Provider 02/11/22 05/12/22 Paula Reza MD INACTIVE IN [place] 02/02/2024 Assigned PCP 03/25/22 04/07/22 Shahida Sutton APRN SENIOR PHYSICIAN [address] [place] [address] Assigned PCP 04/08/22 06/30/22 Daylin Ludwig, [facility] [address] [place] [address] Cardiac Rehabilitation Therapist 05/16/23 Laurel Velasquez MD [address] [place] [address] Assigned Heart and Vascular Provider 05/13/22 06/30/22 Daylin Ludwig, [facility] [address] [place] [address] Cardiac Rehabilitation Therapist 06/08/22 06/09/23 Paula Reza MD INACTIVE IN [place] 02/02/2024 Assigned PCP 07/01/22 07/07/22 Porsha Michaels APRN SENIOR PHYSICIAN [address] [place] [address] Assigned Heart and Vascular Provider 07/01/22 07/07/22 Laurel Velasquez MD [address] [place] [address] Assigned Heart and Vascular Provider 07/08/22 08/04/22 Shahida Sutton APRN SENIOR PHYSICIAN Assigned PCP 07/08/22 09/08/22 Marilin Montaño, SENIOR PHYSICIAN [address] [place] [address] Assigned Heart and Vascular Provider 08/05/22 02/24/24 Esha Dewitt MD [address] [facility] 36 [place] [address] Gastroenterology 09/06/22 Heather Mosquera MD [address] [place] [address] Internal Medicine 09/06/22 Paula Reza MD [place]NACTIVE IN [place] 02/02/2024 Assigned PCP 09/09/22 01/05/23 Esha Dewitt MD [address] [address] Assigned Gastroenterology Provider 09/23/22 04/26/24 Valdo Escamilla PA-C [address] [place] [address] Assigned Neuroscience Provider 09/30/22 04/26/24 Nohelia Abarca PA-C [address] [place] [address] Physician Pickle Water Pump Operator Gastroenterology 10/03/22 Heather Mosquera MD [address] [place] [address] Assigned PCP 01/06/23 Fawad York MD [address] [place] [address] Assigned Musculoskeletal Provider 04/27/23 06/25/23 documented as of this encounter
--- OUTSIDE RECORDS SUMMARY | 2024-11-02 15:16 | XMS_ITS | Clinical Summary ---
Author Organization [facility] Address [address] [place] [address] Care Team Providers Care Frothing 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 Name Role Phone Roopa Almonte MD Unavailable Maryse Burton PA-C Unavailable Roopa Almonte MD Unavailable Griffin Joshi MD Unavailable Paula Reza MD Primary Care Provider UnavailDaylin Olsen Unavailable Esha Dewitt MD Unavailable [phone] Heather Mosquera MD Unavailable [phone] Nohelia Abarca PA-C Unavailable [phone] Heather Mosquera MD Unavailable Allergies Active Allergy Reactions Criticality Noted Date Comments Lamotrigine Er Rash Low 03/26/2012 Lisinopril 07/22/2009 Cough Medications DAILY MULTIVITAMIN PO 1 TABLET DAILY Active melatonin 1 MG TABSIndications: Moderate major depression (H) Take 10 mg by mouth nightly as needed for sleep Purchasing over the counter 4 Active diphenhydrAMINE (BENADRYL) 25 MG tablet Take 1-2 tablets (25-50 mg) by mouth every 6 hours as needed for itching or allergies 60 tablet 1 7 Active blood glucose (NO BRAND SPECIFIED) test stripIndications :Type 2 diabetes mellitus with diabetic nephropathy, with long-term current use of insulin (H) Use to test blood sugar 4 times daily or as directed. To accompany: Blood Glucose Monitor Brands: per insurance. 400 each 3 9 Active blood glucose calibration (NO BRAND SPECIFIED) solutionIndicati ons:Type 2 diabetes mellitus with diabetic nephropathy, with long-term current use of insulin (H) Use to calibrate blood glucose monitor as needed as directed. 1 each 9 Active gabapentin (NEURONTIN) 300 MG capsuleIndicatio ns:Bilateral low back pain with bilateral sciatica, unspecified chronicity Take 3 capsules (900 mg) by mouth 3 times daily 270 capsule 1 0 Active tiZANidine (ZANAFLEX) 4 MG tablet 4 mg 3 times daily as needed STATES HE IS TAKING APPROX 3 TABS DAILY WITH THE [facility] 0 Active insulin pen needle (BD PEN NEEDLE MICRO U/F) 32G X 6 MM miscellaneousInd ications:Type 2 diabetes mellitus with diabetic nephropathy, with long-term current use of insulin (H) Use 6 pen needles daily or as directed. 600 each 3 0 Active nitroGLYcerin (NITROSTAT) 0.4 MG sublingual tabletIndication s:Coronary artery disease involving or[place]ararmiut coronary artery of orutsararmiut heart without angina pectoris For chest pain place 1 tablet under the tongue every 5 minutes for 3 doses. If symptoms persist 5 minutes after 1st dose call 911. 25 tablet 1 1 Active meclizine (ANTIVERT) 25 MG tabletIndication s:Vertigo TAKE 1 TABLET(25 MG) BY MOUTH EVERY 6 HOURS NEEDED FOR DIZZINESS 30 tablet 3 1 Active polyethylene glycol (MIRALAX) 17 GM/Dose powder Take 17 g by mouth 2 times daily as needed 2 Active albuterol (PROVENTIL) (2.5 MG/3ML) 0.083% neb solutionIndicati ons:COPD without exacerbation (H) Take 1 vial (2.5 mg) by nebulization every 6 hours as needed for shortness of breath / dyspnea or wheezing 150 mL 1 2 Active aspirin (ASA) 81 MG EC tablet Take 1 tablet (81 mg) by mouth daily 2 Active metFORMIN (GLUCOPHAGE) 1000 MG tabletIndication s:Type 2 diabetes mellitus with diabetic nephropathy, with long-term current use of insulin (H) Take 1 tablet (1,000 mg) by mouth 2 times daily (with meals) 180 tablet 3 2 Active furosemide (LASIX) 40 MG tabletIndication s:Chronic systolic congestive heart failure (H) Take 1 tablet (40 mg) by mouth daily 180 tablet 1 3 Active insulin glargine (BASAGLAR KWIKPEN) 100 UNIT/ML penIndications:T ype 2 diabetes mellitus with diabetic nephropathy, with long-term current use of insulin (H) ADMINISTER up to 40-50 UNITS in AM only 30 mL 1 3 Active esomeprazole (NEXIUM) [address] capsuleIndicatio ns:Gastroesophag eal reflux disease with esophagitis without hemorrhage TAKE 1 CAPSULE(40 MG) BY MOUTH EVERY MORNING BEFORE BREAKFAST AND 30 TO 60 MINUTES BEFORE EATING 90 capsule 3 Active hydrOXYzine (ATARAX) 25 MG tabletIndication s:Generalized anxiety disorder TAKE 1 TABLET(25 MG) BY MOUTH EVERY 6 HOURS NEEDED FOR ANXIETY 60 tablet 1 3 Active insulin aspart (NOVOLOG FLEXPEN) 100 UNIT/ML penIndications:T ype 2 diabetes mellitus with diabetic nephropathy, with long-term current use of insulin (H),Type 2 diabetes mellitus without complication, without long-term current use of insulin (H) INJECT 6-10 UNITS UNDER THE SKIN THREE TIMES DAILY WITH MEALS PLUS CORRECTION SCALE 1 UNITS PER 50> 150. TOTAL DAILY DOSE UP TO 50 UNITS 15 mL 3 Active polyethylene glycol (GOLYTELY) 236 g suspensionIndica tions:Encounter for screening colonoscopy 2 days prior at [...] Discard remainder of second jug. 8000 mL 3 Active zolpidem ER (AMBIEN CR) 12.5 MG CR tabletIndication s:Insomnia, unspecified type TAKE 1 TABLET(12.5 MG) BY MOUTH EVERY NIGHT NEEDED FOR SLEEP 30 tablet 3 Active clopidogrel (PLAVIX) 75 MG tabletIndication s:Coronary artery disease involving or[place]ararmiut coronary artery of orutsararmiut heart without angina pectoris TAKE 1 TABLET(75 MG) BY MOUTH DAILY 90 tablet 4 Active rosuvastatin (CRESTOR) 40 MG tabletIndication s:Hyperlipidemia LDL goal <70 TAKE 1 TABLET(40 MG) BY MOUTH DAILY 90 tablet 4 Active amiodarone (PACERONE) 200 MG tabletIndication s:Chronic atrial fibrillation (H) TAKE 1 TABLET(200 MG) BY MOUTH DAILY. Appointment needed for additional refills. Please call [phone] to schedule. 90 tablet 4 Active sacubitril-valsa rtan (ENTRESTO) 24-26 MG per tabletIndication s:Chronic systolic congestive heart failure (H),HTN, goal below 140/90 Take 1 tablet by mouth 2 times daily. 180 tablet 4 Active Active Problems Problem Noted Date Diagnosed [...] 81 mg. 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/2019 SR Esophageal reflux 10/06/2003 Resolved Problems Problem [...] Depressive disorder, not elsewhere classified 09/06/2009 Immunizations Immunization Administration Dates Next Due COVID-19 Bivalent 18+ (Moderna) 01/03/2022 COVID-19 Monovalent 18+ (Moderna) 08/05/2021 COVID-19 Monovalent Booster 18+ (Moderna) 03/10/2021 COVID-19 Vaccine (Soha) 05/27/2020 Influenza (H1N1) 03/01/2009 Influenza (IIV3) PF 12/17/2012, 2,12/24/2008,2007,02/05/2007,01/19/2004 Influenza Vaccine 18-64 (Flublok) 01/03/2022,11/2020,11/19/2017 Influenza Vaccine >6 months,quad, PF ,12/10/2018,11/14/2016,2014,02/04/2014 Influenza Vaccine, 6+MO IM (QUADRIVALENT W/PRESERVATIVES) 12/10/2018 Pneumo Conj 13-V (2010&after) 09/01/2014 TDAP Vaccine (Adacel) 05/25/2016,02/15/2006 Family History Medical History Relation Comments C.A.D. 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 Not on file Not on jabier e Last Filed Vital Signs Vital Sign Reading Time Taken Comments Blood Pressure 123/70 02/14/2023 1:45 PM JOINTER OPERATOR Pulse 80 02/14/2023 1:45 PM JOINTER OPERATOR Temperature 36.8 C (98.3 F) 07/08/2022 7:41 AM CDT Respiratory Rate 20 02/14/2023 1:45 PM JOINTER OPERATOR Oxygen Saturation 94% 02/14/2023 1:45 PM JOINTER OPERATOR Inhaled Oxygen Concentration - - Weight 117.9 kg (260 lb) 10/04/2022 3:58 PM CDT Height 180.3 cm (5' 11) 09/25/2022 1:39 PM CDT Body Mass Index 36.26 09/25/2022 1:39 PM CDT Plan of Treatment Health Maintenance Due Date Last Done Comments CT COLONOGRAPHY 1960 FLEX SIG 1960 HF ACTION PLAN 1960 COLONOSCOPY 1970 HEPATITIS A VACCINE (1 of 2 - Risk 2-dose series) 12/07/1979 FIT 10/05/2017 10/05/2016, 03/12/2015 RSV VACCINE (1 - Risk 60-74 years 1-dose series) 2020 A1C 07/10/2022 01/10/2022, 1103/2021, 01/21/2021, Additional history exists ANNUAL REVIEW OF HM ORDERS 07/13/202207/13, 02/05/2020, 12/17/2018 MICROALBUMIN 07/13/2022 07/13/2021, 040 04/2020, 04/16/2019, Additional history exists MEDICARE ANNUAL WELLNESS VISIT 01/03/2023 01/03/2022, 10/06/2003 BMP 01/08/2023 07/08/2022, 050 07/2022, 07/06/2022, Additional history exists DIABETIC FOOT EXAM 01/21/2023 01/21/2022, 0 06/04/2020, 12/17/2018, Additional history exists ZOSTER VACCINE (2 of 2) 01/22/2023 11/27/2022 LIPID 02/15/2023 02/15/2022, 3 03/2021, 02/06/2020, Additional history exists PHQ-9 03/07/2023 09/04/2022, 07/0 05/2022, 01/03/2022, Additional history exists EYE EXAM 04/13/2023 04/13/2022, 020 11/2022, 04/13/2022, Additional history exists ALT 07/08/2023 07/07/2022, 02/02, 01/10/2022, Additional history exists CMP 07/08/2023 07/07/2022, 03/07, 01/21/2021, Additional history exists COVID-19 VACCINE ( season) 2023 02/21/2023, 01/03/2022, 08/05/2021, Additional history exists CBC 02/15/2024 02/14/2023, 05/0 08/2022, 07/07/2022, Additional history exists INFLUENZA VACCINE (#1) 2024 , 01/03/2022, 01/11/2021, Additional history exists COLORECTAL CANCER SCREENING 01/24/2025 sDNA (Cologuard) 01/24/2025 01/24/2022, 01/24/2022 DTAP/TDAP/TD VACCINE (3 - Td or Tdap) 05/25/2026 05/25/2016, 02/15/2006 ADVANCE CARE PLANNING 01/21/2027 01/21/2022 MIGRAINE ACTION PLAN Completed 12/05/2011, 07/09/19 11 DEPRESSION ACTION PLAN Completed 8, 01/17/2017, 01/04/2016, Additional history exists TSH W/FREE T4 REFLEX Completed 10/03/2021, 01/11/2021, 06/04/2020, Additional history exists PNEUMOCOCCAL VACCINE 50+ YEARS Completed 11/27/2022, 09/01/2014 LUNG CANCER SCREENING Discontinued 12/29/2022 , 12/27/2021, 07/07/2021, Additional history exists HEPATITIS C SCREENING Completed 02/21/2023, 021 HIV SCREENING Completed 02/21/2023, 06/04/2020 HPV VACCINE (No Doses Required) Completed MENINGITIS VACCINE Aged Out No longer eligible based on patient's age to [...] Optimize Self-Care Behaviors No Angelita Pemberton RD Being Active - get regular physical activity, working up to at least 150 minutes per week Care Plan Diabetes Self-Management Education Needed to Optimize Self-Care Behaviors No Angelita Pemberton RD Monitoring - monitor glucose and ketones as directed Care Plan Diabetes Self-Management Education Needed to Optimize Self-Care Behaviors 90%(03/23/19 23 3:12 PM JOINTER OPERATOR) Angelita Diaz RD Note: I will [...] Pemberton RD Medical Devices Implanted Type Area Fire Dispatcher Device Identifier Shelf Expiration Date Model / Serial / Lot Medtronic I* [id number] [place] Xt Hf Quad Rip Sawyer-D Mri [id number] Implanted:03/17 (Quantity not on file) ICD [employer] [id number] C OBALT XT HF QUAD FACILITIES FLIGHT CHECK PILOT-D MRI / [id number] / Medtronic I* 4298 Attain Performa Mri Surescan [id number] Implanted:03/17 (Quantity not on file) Leads [employer] 4298 CLAUDY IN PERFORMA MRI SURESCAN / [id number] / Medtronic I* 5076 Capsurefix Novus [id number] Implanted:03/17 (Quantity not on file) Leads [employer] 5076 CAPS UREFIX NOVUS / [id number] / Medtronic I* 6935 Sprint Quattro Secure S [id number] Implanted:03/17 (Quantity not on file) Leads [employer] 6935 SPRI NT QUATTRO SECURE S / [id number] / Procedures Procedure Name Priority Date/Time Associated Diagnosis Comments CBC WITH PLATELETS STAT 02/14/2023 10 :20 AM JOINTER OPERATOR BASIC METABOLIC PANEL Routine 07/08/2022 7:24 AM CDT COMPREHENSIVE METABOLIC PANEL Routine 07/07/2022 10:33 AM CDT EYE EXAM - HIM SCAN 04/13/2022 1 2:00 AM JOINTER OPERATOR LIPID PROFILE Routine 02/15/2022 10:03 AM JOINTER OPERATOR Chronic systolic congestive heart failure (H) HTN, goal below 140/90 COLOGUARD(EXACT SCIENCES) Routine 01/24/2022 12:00 PM JOINTER OPERATOR Screen for colon cancer HEMOGLOBIN A1C Routine 01/10/2022 9:45 AM JOINTER OPERATOR Type 2 diabetes mellitus with diabetic nephropathy, with long-term current use of insulin (H) CT ANGIOGRAM TAVR Routine 12/27/2021 4:0 2 PM CDT Nonrheumatic aortic valve stenosis TSH WITH FREE T4 REFLEX Routine 10/03/2021 8:11 AM CDT 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) ALBUMIN AND CREATININE WITH RATIO RANDOM URINE QUANTITATIVE Routine 07/13/2021 4:09 PM [...] (ABNORMAL) CBC with platelets (02/14/2023 10:20 AM JOINTER OPERATOR) Pathologist [facility] WBC Count 10.9 4.0 - 11.0 10e3/uL 02/14/2023 10:33 AM JOINTER OPERATOR [facility] RBC Count 4.72 4.40 - 5.90 10e6/uL 02/14/2023 10:33 AM JOINTER OPERATOR LABORATORY Hemoglobin 10.4(L) 13.3 - 17.7 g/dL 02/14/2023 10:33 AM JOINTER OPERATOR LABORATORY Hematocrit 34.3(L) 40.0 - 53.0 % 02/14/2023 10:33 AM JOINTER OPERATOR LABORATORY MCV 73(L) 78 - 100 fL 02/14/2023 10:33 AM JOINTER OPERATOR LABORATORY MCH 22.0(L) 26.5 - 33.0 pg 02/14/2023 10:33 AM JOINTER OPERATOR LABORATORY MCHC 30.3(L) 31.5 - 36.5 g/dL 02/14/2023 10:33 AM JOINTER OPERATOR LABORATORY RDW 16.5(H) 10.0 - 15.0 % 02/14/2023 10:33 AM JOINTER OPERATOR LABORATORY Platelet Count 400 150 - 450 10e3/uL 02/14/2023 10:33 AM JOINTER OPERATOR LABORATORY Blood BLOOD SPECIMEN / Unknown Intraosseous / Unknown 02/14/2023 10:20 AM JOINTER OPERATOR 02/14/2023 10:29 AM JOINTER OPERATOR us [facility] FOREMAN/SUPERINTENDANT FIRST DYER LAB - BLOOD OR DERABLES Final Result LABORATORY [facility] [address] Lab (1st floor, no room number) [place] [address], [facility] [phone] * (ABNORMAL) Basic metabolic panel (07/08/2022 7:24 [...] CDT Meir Lovell MD LAB - BLOOD ORDERABLES F inal Result LABORATORY [facility] [address] Lab (1st floor, no room number) [place] [address], [facility] [phone] * (ABNORMAL) Comprehensive metabolic panel (07/07/2022 10:33 AM CDT) Sodium 135(L) 136 - 145 mmol/L 07/07/2022 10:59 AM CDT LABORATORY Potassium 4.0 3.4 - 5.3 mmol/L 07/07/2022 10:59 AM CDT [facility] Chloride 104 98 - 107 mmol/L 07/07/2022 10:59 AM CDT LABORATORY Carbon Dioxide (CO2) 23 22 - 29 mmol/L 07/07/2022 10:59 AM [facility] Anion Gap 8 7 - 15 mmol/L 07/07/2022 10:59 AM CDT LABORATORY Urea Nitrogen 15.0 8.0 - 23.0 mg/dL 07/07/2022 10:59 AM CDT LABORATORY Creatinine 0.80 0.67 - 1.17 mg/dL 07/07/2022 10:59 AM CDT LABORATORY Calcium 8.2(L) 8.8 - 10.2 mg/dL 07/07/2022 10:59 AM [facility] Glucose 162(H) 70 - 99 mg/dL 07/07/2022 10:59 AM [facility] Alkaline Phosphatase 60 40 - 129 U/L 07/07/2022 10:59 AM CDT LABORATORY AST 22 10 - 50 U/L 07/07/2022 10:59 AM CDT LABORATORY ALT 21 10 - 50 U/L 07/07/2022 10:59 AM CDT LABORATORY Protein Total 5.7(L) 6.4 - 8.3 g/dL 07/07/2022 10:59 AM [facility] Albumin 3.0(L) 3.5 - 5.2 g/dL 07/07/2022 10:59 AM [facility] Bilirubin Total 0.2 <=1.2 mg/dL 07/07/2022 10:59 AM CDT LABORATORY GFR Estimate >90 >60 mL/min/1.7 3m2 07/07/2022 10:59 AM CDT LABORATORY Comment:eGFR calculated usin g 2020 CKD-EPI equation. Blood STRUCTURE OF RIGHT HAND / Unknown Venipuncture / Unknown 07/07/2022 10:33 AM CDT 07/07/2022 10:41 AM CDT us Luis Alcaraz MD LAB - BLOOD ORDERABLES Final Res ult LABORATORY [facility] [address] [facility] Lab (1st floor, no room number) [place] [address], [facility] [phone] * (ABNORMAL) EYE EXAM - HIM SCAN (04/13/2022 12:00 AM JOINTER OPERATOR) RETINOPATHY POSITIVE(A ) 04/13/2022 us Provider Outside OTHER Edited Result - Final * (ABNORMAL) Lipid Profile (02/15/2022 10:03 AM JOINTER OPERATOR) Cholesterol 178 <200 mg/dL 02/15/2022 3:56 PM JOINTER OPERATOR [facility] Triglycerides 285(H) <150 mg/dL 02/15/2022 3:56 PM JOINTER OPERATOR [facility] Direct Measure HDL 34(L) >=40 mg/dL 02/15/2022 3:56 PM JOINTER OPERATOR [facility] LDL Cholesterol Calculated 87 <=100 mg/dL 02/15/2022 3:56 PM JOINTER OPERATOR [facility] Non HDL Cholesterol 144(H) <130 mg/dL 02/15/2022 3:56 PM JOINTER OPERATOR [facility] Blood STRUCTURE OF RIGHT UPPER LIMB / Unknown Venipuncture / Unknown 02/15/2022 10:03 AM JOINTER OPERATOR 02/15/2022 10:03 AM JOINTER OPERATOR Narrative [facility] - 02/15/2022 3:56 PM JOINTER OPERATOR Cholesterol Desirable: <200 mg/dL Triglycerides Normal: Less than 150 mg/dL Borderline High: 150-199 mg/dL High: 200-499 mg/dL Very High: Greater than or equal to 500 mg/dL Direct Measure HDL Female: Greater than or equal to 50 mg/dL Male: Greater than or equal to 40 mg/dL LDL Cholesterol Desirable: <100mg/dL Above Desirable: 100-129 mg/dL Borderline High: 130-159 mg/dL High: 160-189 mg/dL Very High: >= 190 mg/dL Non HDL Cholesterol Desirable: 130 mg/dL Above Desirable: 130-159 mg/dL Borderline High: 160-189 mg/dL High: 190-219 mg/dL Very High: Greater than or equal to 220 mg/dL Keerthi Miner APRN FIRST DYER LAB - BLOOD ORDERAB LES Final Result [facility] Lab [address] [facility] [place] [address], [facility] [phone] * (ABNORMAL) COLOGUARD(Peek) (01/24/2022 12:00 PM JOINTER OPERATOR) COLOGUARD-ABSTRAC T Positive( A) Negative 01/29/2022 7:20 AM JOINTER OPERATOR [employer] (CLIA #:[id number]) Comment: POSITIVE TEST RESULT. A positive Cologuard result should be followed with a colonoscopy or visual examination of the colon. The normal value (reference range) for this assay is negative. TEST DESCRIPTION: Composite algorithmic analysis of stool DNA-biomarkers with hemoglobin immunoassay. Quantitative values of individual biomarkers are not [...] (Chelo Echeverria al, N Engl J Med 2014;370(14):8825-0005.) Cologuard may produce a false negative or false positive result (no colorectal cancer or precancerous polyp present at colonoscopy follow up). A negative Cologuard test result does not guarantee the absence of CRC or advanced adenoma (pre-cancer). The current Cologuard screening interval is every 3 years. ([place] Cancer Society and U.S. Multi-Society Task Force). Cologuard performance data in a 10,000 patient pivotal study using colonoscopy as the reference method can be accessed at the following location: www.[email or web address]/results. Additional description of the Cologuard test process, warnings and precautions can be found at [email or web address]. Stool specimen (specimen) 01/24/2022 12:00 PM JOINTER OPERATOR 01/25/2022 1:01 PM JOINTER OPERATOR Paula Reza MD LABORATORY Final Result Performing Organization Address City/[facility] Co de Phone Number [employer] [address] [place] [address], [facility] [phone] [employer] (CLIA #:[id number]) [address] [place] [address] * (ABNORMAL) Hemoglobin A1c (01/10/2022 9:45 AM JOINTER OPERATOR) Hemoglobin A1C 8.9(H) 0.0 - 5.6 % 01/10/2022 9:52 AM JOINTER OPERATOR [facility] Comment: Normal <5.7% Prediabetes 5.7-6.4% Diabetes 6.5% or higher Note: Adopted from ADA consensus guidelines. Blood STRUCTURE OF RIGHT UPPER LIMB / Unknown Venipuncture / Unknown 01/10/2022 9:45 AM JOINTER OPERATOR 01/10/2022 9:45 AM JOINTER OPERATOR Narrative [facility] - 01/10/2022 9:52 AM JOINTER OPERATOR Reviewed, ok with previous. Roopa Almonte MD LAB - BLOOD ORDERABLES Fi nal Result [place] [facility] [address], [address] [place] [address], [place] [phone] * CT Angiogram TAVR (12/27/2021 4:02 PM CDT) Anatomical Region Laterality Modality Lower Extremity, UMP CT CTA Comp uted Tomography Impressions 12/28/2021 9:34 AM CDT IMPRESSION: 1. No acute aortic pathology like [...] dissection, intramural hematoma, or contained rupture. MEASUREMENTS: Back Seam Stitcher dimensions of the thoracoabdominal aorta are as follows: 1. AORTIC ANNULUS MEASUREMENTS: * The average aortic annulus diameter is 27.8 mm, * Aortic annulus area is 6.07 cm2 * Aortic annulus perimeter is 92.4 mm * The 3 cusp coaxial angle for aortic valve is (OCAMPO 8 , MACHINE BANDER AND CELLOPHANER 6) these angles will vary depending upon [...] soft tissue, nodes to follow separately SIDNEY HCAN MD [facility] 12/28/2021 9:34 AM CDT Procedure: CT ANGIOGRAM [...] in a spiral gated mode with limited [id number] followed by gated high pitch spiral CTA of the chest, abdomen, pelvis at 120 kVP to evaluate the thoracoabdominal aorta and iliac vasculature. Scan protocol was optimized to minimize radiation exposure. The total radiation exposure was 1409 DLP and 19.7 mSv. Images were reconstructed and analyzed on a [employer] Workstation. Procedure Note Sidney Chan MD - [...] in a spiral gated mode with limited [id number] followed by gated high pitch spiral CTA of the chest, abdomen, pelvis at 120 kVP to evaluate the thoracoabdominal aorta and iliac vasculature. Scan protocol was optimized to minimize radiation exposure. The total radiation exposure was 1409 DLP and 19.7 mSv. Images were reconstructed and analyzed on a [employer] Workstation. IMPRESSION: 1. No acute aortic pathology [...] dissection, intramural hematoma, or contained rupture. MEASUREMENTS: Back Seam Stitcher dimensions of the thoracoabdominal aorta are as follows: 1. AORTIC ANNULUS MEASUREMENTS: * The average aortic annulus diameter is 27.8 mm, * Aortic annulus area is 6.07 cm2 * Aortic annulus perimeter is 92.4 mm * The 3 cusp coaxial angle for aortic valve is (OCAMPO 8 , MACHINE BANDER AND CELLOPHANER 6) these angles will vary depending upon [...] MD Tiara Yost MD IMG CT ORDERABLES Final Resul t * TSH with free T4 reflex (10/03/2021 8:11 AM CDT) [facility] TSH 2.97 0.30 - 4.20 uIU/mL 10/03/2021 8:58 AM CDT LABORATORY Blood STRUCTURE OF RIGHT UPPER LIMB / Unknown Venipuncture / Unknown 10/03/2021 8:11 AM CDT 10/03/2021 8:13 AM CDT Keerthi Miner APRN FIRST DYER LAB - BLOOD ORDERAB LES Final Result LABORATORY [facility] [address] [facility] Lab (1st floor, no room number) [place] [address], [facility] [phone] * Albumin Random Urine Quantitative with Creat Ratio (07/13/2021 4:09 PM CDT) Pathologist [facility] Creatinine Urine mg/dL 52 mg/dL 07/14/2021 3:09 PM CDT [facility] Albumin Urine mg/L <5 mg/L 07/14/2021 3:09 PM CDT [facility] Albumin Urine mg/g Cr 07/14/2021 3:09 PM CDT [facility] Comment:Unable to calculate: Urine creatinine or albumin value below detectable level Urine URINE SPECIMEN / Unknown Non-blood Collection / Unknown 07/13/2021 4:09 PM CDT 07/13/2021 4:09 PM CDT Vesta Aguayo PA-C LAB - URINE ORDERABLES Fin al Result [facility] [address] Lab (no room number, 1st floor of clinic) [place] [address], [facility] [phone] * HIV Antigen Antibody Combo (06/04/2020 2:43 PM CDT) HIV Antigen Antibody Combo Nonreactive NR^Nonrea ctive 06/04/2020 8:30 PM CDT [facility] Comment:HIV-1 p24 Ag & HIV-1 /HIV-2 Ab Not Detected Blood 06/04/2020 2:43 PM CDT 06/04/2020 2:44 PM CDT Shahida Sutton APRN FIRST DYER LAB - BLOOD ORDERAB LES Final Result [facility] [address] [place] [address] * Hepatitis C Screen Reflex to HCV RNA Quant and Genotype (06/04/2020 2:43 PM CDT) Hepatitis C Antibody Nonreactive NR^Nonre active 06/04/2020 8:38 PM CDT [facility] Comment: Assay performance characteristics have not been established for newborns, infants, and children Blood 06/04/2020 2:43 PM CDT 06/04/2020 2:44 PM CDT Shahida Sutton APRN FIRST DYER LAB - BLOOD ORDERAB LES Final Result [facility] [address] [place] [address] * PHQ-9 DEPRESSION SCREENING ORDER (05/01/2018) PHQ9 SCORE 5 Narrative Pelon Crowe - 05/01/2018 [facility] PROGRESS NOTE us Provider Outside OTHER Final Result * Fecal colorectal cancer screen (FIT) (10/05/2016 10:45 AM CDT) Occult Blood Scn FIT Negative NEG [facility] Stool specimen (specimen) 10/05/2016 10:45 AM CDT 10/11/2016 11:00 AM CDT Shahida Sutton MASON FOREMAN/SUPERINTENDANT [facility] - STOOLS ORDERA BLES Final Result [facility] [address] [place] [address] from Last 3 Months or Most Recently Relevant to Health Maintenance Additional Health Concerns Active Problems Noted Date Diagnosed Date HbA1C Not In Goal 02/23/2022 Diabetes Self-Management Edu cation Needed to Optimize Self-Care Behaviors 02/23/2022 Infection Onset Date Last Indicated ESBL 01/05/2021 01/05/[address] [address] [place] [phone] MEDICARE * Guarantor: Mauro Terrell Account Type Relation to Patient Date of Phone Billing Address Medication Therapy Self 1960 NONE (Work) [address] [place] [address] Advance Directives For more information, please contact: [phone] * Full Code (Latest Code Status on [...] patie nt/ legal decision maker Care Teams Frothing 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 Relationship Specialty Start Date End Date Paula Reza MD [address] [place] [address] PCP - General Internal Medicine 08/05/21 Roopa Almonte MD [address] [place], [place] [id number] Endocrinology, Diabetes, and Metabolism 01/19/21 Maryse Burton PA-C [address] [place] [address] Physician Bridge Maintenance Worker Dermatology 04/14/21 Roopa Almonte MD [address] [facility] [address] [place] [address] Hospitalist Endocrinology, Diabetes, and Metabolism 05/30/21 Griffin Joshi MD [address] [place] [id number] Cardiovascular Disease 07/25/[address] [facility] [address] [place] [address] Cardiac Rehabilitation Therapist 05/16/23 Esha Dewitt MD 420 [facility] [address] [place], [place] [address] Gastroenterology 09/06/22 Heather Mosquera MD [address] [place] [address] Internal Medicine 09/06/22 Nohelia Abarca PA-C [address] [place] [address] Physician Bridge Maintenance Worker Gastroenterology 10/03/22 Heather Mosquera MD [address] [place] [address] Assigned PCP 01/06/23
--- OUTSIDE RECORDS SUMMARY | 2024-11-02 15:16 | XMS_ITS | Encounter Summary ---
Author Organization [place] Address [address] [place] [address] Care Team Providers Care Global Account Executive Name Role Phone Roopa Almonte MD Unavailable [phone] Maryse Burton PA-C Unavailable [phone] Roopa Almonte MD Unavailable [phone] Griffin Joshi MD Unavailable Rina Magallon RN Unavailable [phone] Paula Reza MD Primary Care Provider Unavailabl e Roopa Almonte MD Unavailable [phone] Rosa Maria Love Unavailable [phone] Augustine Callaway MD Unavailable Shahida Sutton APRN ONCOLOGY RN Unavailable Un available Porsha Michaels APRN ONCOLOGY RN Unavailable [phone] Paula Reza MD Unavailable Unavailable Shahida Sutton APRN ONCOLOGY RN Unavailable Un available Daylin Ludwig EP Unavailable [phone] Laurel Velasquez MD Unavailable [phone] Daylin Ludwig EP Unavailable [phone] Paula Reza MD Unavailable Unavailable Brando Porsha ZEPEDA ONCOLOGY RN Unavailable [phone] Laurel Velasquez MD Unavailable [phone] Shahida Sutton APRN ONCOLOGY RN Unavailable Un available Marilin Montaño ONCOLOGY RN Unavailable [phone] Esha Dewitt MD Unavailable [phone] Heather Mosquera MD Unavailable [phone] Paula Reza MD Unavailable Unavailable Esha Dewitt MD Unavailable [phone] Valdo Escamilla PA-C Unavailable [phone] Nohelia Abarca-C Unavailable [phone] Heather Mosquera MD Unavailable [phone] Fawad York MD Unavailable [phone] Encounter Details Date Type Department Care Team (Late st Contact Info) Description 03/13/2022 MyC Medical Advice [facility] [address] [address] Fawad York MD [address] [place] [address] Social History Tobacco Use Types Packs/Day [...] AM CDT 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 No / Unsure 02/21/2022 12:25 PM ELECTRIC MOTOR ANALYST documented as of this encounter Plan of [...] to Optimize Self-Care Behaviors 90%(03/23/19 3:12 PM ELECTRIC MOTOR ANALYST) Angelita Diaz RD Note: I will check [...] documented as of this encounter Care Teams Global Account Executive Relationship Specialty Start Date End Date Paula Reza MD PCP - General Internal Medicine 08/05/21 Roopa Almonte MD [address] [facility] [address] [place], [place] [address] Endocrinology, Diabetes, and Metabolism 01/19/21 Maryse Burton, PA-C [address] [place] [address] Physician Business Applications Developer Dermatology 04/14/21 Roopa Almonte MD [address] [facility] [address] [place] [address] Hospitalist Endocrinology, Diabetes, and Metabolism 05/30/21 Griffin Joshi MD [address] [facility] [address] [place] [address] Cardiovascular Disease 07/25/21 Rina Magallon, RN Lead Tack Maker 07/29/21 07/11/22 Roopa Almonte MD [address] [place] [address] 200 [place] [address] Assigned Endocrinology Provider 09/10/21 02/24/24 Rosa Maria Love CHW Community Health Worker 10/06/21 07/11/22 [place] [address] [address] Assigned Musculoskeletal Provider 10/15/21 04/26/23 Shahida Sutton APRN ONCOLOGY RN Assigned PCP 12/24/21 03/24/22 Porsha Michaels APRN ONCOLOGY RN [address] [place] [address] Assigned Heart and Vascular Provider 02/11/22 05/12/22 Paula Reza MD [place] 02/02/2024 Assigned PCP 03/25/22 04/07/22 Shahida Sutton APRN ONCOLOGY RN [place]CTIVE IN [place] 02/02/2024 Assigned PCP 04/08/22 06/30/22 Daylin Ludwig EP [facility] [address] [place] [id number] Cardiac Rehabilitation Therapist 05/16/23 Laurel Velasquez MD [address] [place] [id number] Assigned Heart and Vascular Provider 05/13/22 06/30/22 Daylin Ludwig EP [facility] [address] [place] [address] Cardiac Rehabilitation Therapist 06/08/22 06/09/23 Paula Reza MD [place] 02/02/2024 Assigned PCP 07/01/22 07/07/22 Porsha Michaels APRN ONCOLOGY RN [address] [place] [address] Assigned Heart and Vascular Provider 07/01/22 07/07/22 Laurel Velasquez MD [address] [place] [address] Assigned Heart and Vascular Provider 07/08/22 08/04/22 Shahida Sutton APRN ONCOLOGY RN Assigned PCP 07/08/22 09/08/22 Marilin Montaño, ONCOLOGY RN [address] [place] [address] Assigned Heart and Vascular Provider 08/05/22 02/24/24 Esha Dewitt MD [address] [place] [address] [address] [place], [place] [address] Gastroenterology 09/06/22 Heather Mosquera MD [address] [place] [address] Internal Medicine 09/06/22 Paula Reza MD [place] 02/02/2024 Assigned PCP 09/09/22 01/05/23 Esha Dewitt MD 420 [facility] 36 [place] [address] Assigned Gastroenterology Provider 09/23/22 04/26/24 Valdo Escamilla PA-C [address] [place] [address] Assigned Neuroscience Provider 09/30/22 04/26/24 Nohelia Abarca PA-C [address] [place] [address] Physician Business Applications Developer Gastroenterology 10/03/22 Heather Mosquera MD [address] [place] [address] Assigned PCP 01/06/23 Fawad York MD [address] [place] [address] Assigned Musculoskeletal Provider 04/27/23 06/25/23 documented as of this encounter
--- OUTSIDE RECORDS SUMMARY | 2024-11-02 15:16 | XMS_ITS | Encounter Summary ---
Author Organization [facility] Address [address] [place] [address] Care Team Providers Care Screw 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 Name Role Phone Mingo Aldana MD Primary Car e Provider HermanShahida APRN RESERVE OPERATOR Primary Care Provi ford Unavailable Herman, Shahida Cummings APRN RESERVE OPERATOR Unavailable Un available Herman, Shahida Cummings APRN RESERVE OPERATOR Unavailable Un available Carolynn Ramon RN Unavailable [phone] Augustine Callaway MD Unavailable Brady Lion MD Unavailable Un available Nima FranceC Unavailable [phone] Camille Chandler-C Unavailable [phone] Anabela Barakat APRN RESERVE OPERATOR Unavailable Nima FranceC Unavailable [phone] Basilio Morillo DO Unavailable [phone] Fawad York MD Unavailable [phone] Roopa Almonte MD Unavailable [phone] Augustine Callaway MD Unavailable Maryse Burton PA-C Unavailable [phone] Marquita Starkey MD Unavailable [phone] Roopa Almonte MD Unavailable [phone] Griffin Joshi MD Unavailable Rina Magallon RN Unavailable [phone] Paula Reza MD Primary Care Provider UnavailGriffin Youssef MD Unavailable Roopa Almonte MD Unavailable [phone] [facility] Naik Unavailable Lydia Bernstein PA-C Unavailable Rosa Maria Love Unavailable [phone] Augustine Callaway MD Unavailable Paula Reza MD Unavailable Unavailable Keerthi Miner APRN RESERVE OPERATOR Unavailable [phone] Herman, Shahida Cummings APRN RESERVE OPERATOR Unavailable Un available Porsha Michaels APRN RESERVE OPERATOR Unavailable [phone] Paula Reza MD Unavailable Unavailable Herman, Shahida Cummings APRN RESERVE OPERATOR Unavailable Un available Daylin Ludwig Unavailable [phone] Laurel Velasquez MD Unavailable [phone] Daylin Ludwig Unavailable [phone] Paula Reaz MD Unavailable Unavailable Porsha Michaels APRN RESERVE OPERATOR Unavailable [phone] Luarel Velasquez MD Unavailable [phone] Shahida Sutton APRN RESERVE OPERATOR Unavailable Un available Marilin Montaño RESERVE OPERATOR Unavailable [phone] Esha Dewitt MD Unavailable [phone] Heather Mosquera MD Unavailable [phone] Paula Reza MD Unavailable Unavailable Esha Dewitt MD Unavailable [phone] Valdo Escamilla PA-C Unavailable [phone] Nohelia Abarca PA-C Unavailable [phone] Heather Mosquera MD Unavailable Fawad York MD Unavailable [phone] Reason for Visit * Reason Onset Date Comments Refill Request 07/05/2012 Toprol XL Encounter Details Date Type Department Care Team (Late st Contact Info) Description 07/05/2012 MyC Refill M [address], [address] [place] [address] Mingo Aldana MD [facility] [email or web address] [facility] [address] [place] [address] Refill Request (Toprol XL) Social History Tobacco Use Types Packs/Day Years Used Date Smoking Tobacco: Former Cigarettes Q uit: 12/09/2006 Cigars Smokeless Tobacco: Never Comments:occasionally Alcohol Use Standard Drinks/Week Comments Yes 0 (1 standard drink = 0.6 oz pur e alcohol) Very Occasionally Sex and Gender Information Value Date Recorded Sex Assigned at Male 09/20/2020 8:37 AM CDT 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 Gender Identity Male 09/20/2020 8:37 AM CDT [...] King - 07/05/2012 10:53 AM CDTMessage from [employer]: Original authorizing provider: Mingo Aldana MD, MD Mauro Terrell would like a refill of the following medications: metoprolol (TOPROL-XL) 50 MG 24 hr tablet [Mingo Aldana MD, MD] Preferred pharmacy: [facility] [id number] [address] Comment: I requested this through [...] Out COVID-19 02/15/2020 02/15/2020 02/16/2020 2:32 PM HAND TOUCH UP PAINTER Rule Out COVID-19 01/05/2021 01/05/2021 01/06/2021 12:57 PM CDT ESBL 01/05/2021 01/05/2021 Rule Out COVID-19 06/30/2021 06/30/2021 07/01/2021 9:34 AM CDT Rule Out COVID-19 07/25/2021 07/25/2021 07/25/2021 8:02 PM CDT documented as of this encounter Care Teams Screw 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 Relationship Specialty Start Date End Date Mingo Aldana MD PCP - General Family Practice 07/22/09 07/12/14 Shahida Sutton APRN RESERVE OPERATOR PCP - General Nurse Practitioner 08/17/14 08/04/21 Shahida Sutton APRN RESERVE OPERATOR PCP - Assigned PCP 07/12/14 05/07/18 Paula Reza MD PCP - General Internal Medicine 08/05/21 Shahida Sutton APRN RESERVE OPERATOR Assigned PCP 07/12/14 09/30/21 Carolynn Ramon RN Personal Advocate & Liaison (PAL) 12/17/18 08/07/21 [place] [address] [address] Assigned Musculoskeletal Provider 12/26/19 08/21/20 Brady Lion MD Assigned Heart and Vascular Provider 12/26/19 08/14/20 Nima France PA-C [address] [facility] [place] [address] [place] [address] Assigned Surgical Provider 05/19/20 08/21/20 Camille Chandler PA-C [address]45 [facility] [address] [place] [id number] Assigned Neuroscience Provider 05/19/20 09/14/20 Anabela Barakat APRN RESERVE OPERATOR [address] [place] [address] Assigned Heart and Vascular Provider 08/15/20 08/05/21 Nima France PA-C [address] [facility] [address] [place] [address] Assigned Musculoskeletal Provider 08/22/20 11/13/20 [place] [address] [facility] [place] [address] Assigned Musculoskeletal Provider 11/14/20 12/04/20 Fawad York MD [address] [place], [place] [address] Assigned Musculoskeletal Provider 12/05/20 02/05/21 Roopa Almonte MD [address] [facility] [address] [place] [address] Endocrinology, Diabetes, and Metabolism 01/19/21 [place] [address] [facility] [address] [place], [place] [address] Assigned Musculoskeletal Provider 02/06/21 09/16/21 Maryse Burton PA-C [address] [place] [address] Physician Revenue Director Dermatology 04/14/21 Marquita Starkey MD [address] [place] [address] Internal Medicine 05/06/21 05/06/21 Roopa Almonte MD [address] [place] [address] Hospitalist Endocrinology, Diabetes, and Metabolism 05/30/21 Griffin Joshi MD [address] [facility] [address] [place] [id number] Cardiovascular Disease 07/25/21 Rina Magallon, RN Lead Manager Long Term Care 07/29/21 07/11/22 Griffin Joshi MD [address] [facility] [address] [place] [id number] Assigned Heart and Vascular Provider 08/06/21 10/07/21 Roopa Almonte MD [address] [facility] 200 [place] [address] Assigned Endocrinology Provider 09/10/21 02/24/24 [place] [address] [facility] [place] [address] Assigned Musculoskeletal Provider 09/17/21 10/14/21 Lydia Bernstein PA-C [address] [facility] [address] [place] [id number] Assigned PCP 10/01/21 10/21/21 Rosa Maria Love CHW Community Health Worker 10/06/21 [place] [address] [place] [id number] Assigned Musculoskeletal Provider 10/15/21 04/26/23 Paula Reza MD INACTIVE IN [place] 02/02/2024 Assigned PCP 10/22/21 12/23/21 Keerthi Miner TRANSLATOR INTERPRETER RESERVE OPERATOR [address] [place] [address] Assigned Heart and Vascular Provider 10/08/21 02/10/22 Shahida Sutton APRN RESERVE OPERATOR Assigned PCP 12/24/21 03/24/22 Porsha Michaels APRN RESERVE OPERATOR [address] [place] [address] Assigned Heart and Vascular Provider 02/11/22 05/12/22 Paula Reza MD [place] 02/02/2024 Assigned PCP 03/25/22 04/07/22 Shahida Sutton APRN RESERVE OPERATOR [address] [place] [address] Assigned PCP 04/08/22 06/30/22 Daylin Ludwig, EP [facility] [address] [place] [address] Cardiac Rehabilitation Therapist 05/16/23 Laurel Velasquez MD [address] [place] [address] Assigned Heart and Vascular Provider 05/13/22 06/30/22 Daylin Ludwig, EP [facility] [address] [place] [address] Cardiac Rehabilitation Therapist 06/08/22 06/09/23 Paula Reza MD INACTIVE IN [place] 02/02/2024 Assigned PCP 07/01/22 07/07/22 Porsha Michaels APRN RESERVE OPERATOR [address] [place] [address] Assigned Heart and Vascular Provider 07/01/22 07/07/22 Laurel Velasquez MD [address] [place] [address] Assigned Heart and Vascular Provider 07/08/22 08/04/22 Shahida Sutton, TRANSLATOR INTERPRETER RESERVE OPERATOR Assigned PCP 07/08/22 09/08/22 Marilin Montaño, RESERVE OPERATOR [address] [place] [address] Assigned Heart and Vascular Provider 08/05/22 02/24/24 Esha Dewitt MD 420 [facility] 36 [place] [address] Gastroenterology 09/06/22 Heather Mosquera MD [address] [place] [address] Internal Medicine 09/06/22 Paula Reza MD INACTIVE IN [place] 02/02/2024 Assigned PCP 09/09/22 01/05/23 Esha Dewitt MD 420 [facility] [address] [place] [address] Assigned Gastroenterology Provider 09/23/22 04/26/24 Valdo Escamilla PA-C [address] [place] [address] Assigned Neuroscience Provider 09/30/22 04/26/24 Nohelia Abarca PA-C [address] [facility] [address] [place] [address] Physician Revenue Director Gastroenterology 10/03/22 Heather Mosquera MD [address] [facility] [address] [place] [address] Assigned PCP 01/06/23 Fawad York MD [address] [facility] [place], [place] [address] Assigned Musculoskeletal Provider 04/27/23 06/25/23 documented as of this encounter
--- OUTSIDE RECORDS SUMMARY | 2024-11-02 15:16 | XMS_ITS | Encounter Summary ---
Author Organization [facility] Address [address] [place] [address] Care Team Providers Care Screen Cutter And Trimmer Name Role Phone Mingo Aldana MD Primary Car e Provider HermanShahida APRN HONEY GRADER AND BLENDER Primary Care Provi ofrd Unavailable Herman, Shahida Cummings APRN HONEY GRADER AND BLENDER Unavailable Un available Herman, Shahida Cummings APRN HONEY GRADER AND BLENDER Unavailable Un available Carolynn Ramon RN Unavailable [phone] Augustine Callaway MD Unavailable Brady Lion MD Unavailable Un available Nima FranceC Unavailable [phone] Camille Chandler-C Unavailable [phone] Anabela Barakat APRN HONEY GRADER AND BLENDER Unavailable Nima FranceC Unavailable [phone] Basilio Morillo DO Unavailable [phone] Fawad York MD Unavailable [phone] Roopa Almonte MD Unavailable [phone] Augustine Callaway MD Unavailable Maryse Burton PA-C Unavailable [phone] Marquita Starkey MD Unavailable [phone] Roopa Almonte MD Unavailable [phone] Griffin Joshi MD Unavailable Rina Magallon RN Unavailable [phone] Paula Reza MD Primary Care Provider UnavailGriffin Youssef MD Unavailable Roopa Almonte MD Unavailable [phone] [facility] Naik Unavailable Lydia Bernstein PA-C Unavailable Rosa Maria Love Unavailable [phone] Augustine Callaway MD Unavailable Paula Reza MD Unavailable Unavailable Keerthi Miner APRN HONEY GRADER AND BLENDER Unavailable [phone] Herman, Shahida Cummings APRN HONEY GRADER AND BLENDER Unavailable Un available Porsha Michaels APRN HONEY GRADER AND BLENDER Unavailable [phone] Paula Reza MD Unavailable Unavailable Herman, Shahida Cummings APRN HONEY GRADER AND BLENDER Unavailable Un available Daylin Ludwig Unavailable [phone] Laurel Velasquez MD Unavailable [phone] Daylin Ludwig Unavailable [phone] Paula Reza MD Unavailable Unavailable Porsha Michaels APRN HONEY GRADER AND BLENDER Unavailable [phone] Laurel Velasquez MD Unavailable [phone] Shahida Sutton APRN HONEY GRADER AND BLENDER Unavailable Un available Marilin Montaño HONEY GRADER AND BLENDER Unavailable [phone] Esha Dewitt MD Unavailable [phone] Heather Mosquera MD Unavailable [phone] Paula Reza MD Unavailable Unavailable Esha Dewitt MD Unavailable [phone] Valdo Escamilla PA-C Unavailable [phone] Nohelia Abarca PA-C Unavailable [phone] Heather Mosquera MD Unavailable [phone] Fawad York MD Unavailable Encounter Details Date Type Department Care Team (Late st Contact Info) Description 09/05/2011 [facility] [address] [id number] [place] Social History Tobacco Use Types [...] CDT 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 Gender Identity Male 09/20/2020 8:37 AM CDT Sexual Orientation Straight 09/20/2020 8: 37 AM CDT documented as of this encounter Plan of Treatment Not on file documented as of this encounter Visit Diagnoses Not on filedocumented in this encounter Additional Health Concerns Infection Onset Date Last Indicated Resolved Time Rule Out COVID-19 02/15/2020 02/15/2020 02/16/2020 2:32 PM SENIOR PORTFOLIO ANALYST Rule Out COVID-19 01/05/2021 01/05/2021 01/06/2021 12:57 PM CDT ESBL 01/05/2021 01/05/2021 Rule Out COVID-19 06/30/2021 06/30/2021 07/01/2021 9:34 AM CDT Rule Out COVID-19 07/25/2021 07/25/2021 07/25/2021 8:02 PM CDT documented as of this encounter Care Teams Screen Cutter And Trimmer Relationship Specialty Start Date End Date Mingo Aldana MD PCP - General Family Practice 07/22/09 07/12/14 Shahida Sutton APRN HONEY GRADER AND BLENDER PCP - General Nurse Practitioner 08/17/14 08/04/21 Shahida Sutton APRN HONEY GRADER AND BLENDER PCP - Assigned PCP 07/12/14 05/07/18 Paula Reza MD PCP - General Internal Medicine 08/05/21 Shahida Sutton APRN HONEY GRADER AND BLENDER Assigned PCP 07/12/14 09/30/21 Carolynn Ramon RN Personal Advocate & Liaison (PAL) 12/17/18 08/07/21 [place] [address] [place] [address] Assigned Musculoskeletal Provider 12/26/19 08/21/20 Brady Lion MD Assigned Heart and Vascular Provider 12/26/19 08/14/20 Nima France PA-C [address] [place] [address] Assigned Surgical Provider 05/19/20 08/21/20 Camille Chandler PA-C [address] [place] [id number] Assigned Neuroscience Provider 05/19/20 09/14/20 Anabela Barakat APRN HONEY GRADER AND BLENDER [address] [place] [address] Assigned Heart and Vascular Provider 08/15/20 08/05/21 Nima France PA-C [address] [facility] [address] [place] [address] Assigned Musculoskeletal Provider 08/22/20 11/13/20 [place] [address] [place], [place] [address] Assigned Musculoskeletal Provider 11/14/20 12/04/20 Fawad York MD [address] [place], [place] [address] Assigned Musculoskeletal Provider 12/05/20 02/05/21 Roopa Almonte MD [address] [facility] [address] [place] [address] Endocrinology, Diabetes, and Metabolism 01/19/21 [place] [address] [facility] [address] [place], [place] [address] Assigned Musculoskeletal Provider 02/06/21 09/16/21 Maryse Burton PA-C [address] [place] [address] Physician Area Loss Prevention Manager Dermatology 04/14/21 Marquita Starkey MD [address] [facility] [address] [place], [place] [address] Internal Medicine 05/06/21 05/06/21 Roopa Almonte MD [address] [facility] [address] [place], [place] [address] Hospitalist Endocrinology, Diabetes, and Metabolism 05/30/21 Griffin Joshi MD [address] [facility] [address] [place] [address] Cardiovascular Disease 07/25/21 Rina Magallon, RN Lead Certified Nursing Attendant 07/29/21 07/11/22 Griffin Joshi MD [address] [facility] [address] [place] [address] Assigned Heart and Vascular Provider 08/06/21 10/07/21 Roopa Almonte MD [address] [place] [address] [address] [place] [address] Assigned Endocrinology Provider 09/10/21 02/24/24 [place] [address] [facility] [place] [address] Assigned Musculoskeletal Provider 09/17/21 10/14/21 Lydia Bernstein PA-C [address] [facility] [address] [place] [address] Assigned PCP 10/01/21 10/21/21 Rosa Maria Love [facility] Community Health Worker 10/06/21 [place] [address] [place] [address] Assigned Musculoskeletal Provider 10/15/21 04/26/23 Paula Reza MD INACTIVE IN [place] 02/02/2024 Assigned PCP 10/22/21 12/23/21 Keerthi Miner BUSINESS SERVICES INTERN HONEY GRADER AND BLENDER [address] [place] [address] Assigned Heart and Vascular Provider 10/08/21 02/10/22 Shahida Sutton APRN HONEY GRADER AND BLENDER Assigned PCP 12/24/21 03/24/22 Porsha Michaels BUSINESS SERVICES INTERN HONEY GRADER AND BLENDER [address] [place] [address] Assigned Heart and Vascular Provider 02/11/22 05/12/22 Paula Reza MD INACTIVE IN [place] 02/02/2024 Assigned PCP 03/25/22 04/07/22 Shahida Sutton APRN HONEY GRADER AND BLENDER [address] [place] [address] Assigned PCP 04/08/22 06/30/22 Daylin Ludwig, MIKI [facility] [address] [place] [address] Cardiac Rehabilitation Therapist 05/16/23 Laurel Velasquez MD [address] [place] [address] Assigned Heart and Vascular Provider 05/13/22 06/30/22 Daylin Ludwig, EP [facility] [address] [place] [address] Cardiac Rehabilitation Therapist 06/08/22 06/09/23 Paula Reza MD INACTIVE IN [place] 02/02/2024 Assigned PCP 07/01/22 07/07/22 Porsha Michaels, BUSINESS SERVICES INTERN HONEY GRADER AND BLENDER [address] [place] [address] Assigned Heart and Vascular Provider 07/01/22 07/07/22 Laurel Velasquez MD [address] [place] [address] Assigned Heart and Vascular Provider 07/08/22 08/04/22 Shahdia Sutton, BUSINESS SERVICES INTERN HONEY GRADER AND BLENDER Assigned PCP 07/08/22 09/08/22 Marilin Montaño, HONEY GRADER AND BLENDER [address] [place] [address] Assigned Heart and Vascular Provider 08/05/22 02/24/24 Esha Dewitt MD 420 [facility] [address] [place], [place] [address] Gastroenterology 09/06/22 Heather Mosquera MD [address] [place], [place] [address] Internal Medicine 09/06/22 Paula Reza MD INACTIVE IN [place] 02/02/2024 Assigned PCP 09/09/22 01/05/23 Esha Dewitt MD 420 [facility] [address] [place] [address] Assigned Gastroenterology Provider 09/23/22 04/26/24 Valdo Escamilla PA-C [address] [place] [address] Assigned Neuroscience Provider 09/30/22 04/26/24 Nohelia Abarca PA-C [address] [facility] [address] [place] [address] Physician Area Loss Prevention Manager Gastroenterology 10/03/22 Heather Mosquera MD [facility] [facility] [address] [place] [address] Assigned PCP 01/06/23 Fawad York MD [address] [place] [address] Assigned Musculoskeletal Provider 04/27/23 06/25/23 documented as of this encounter
--- OUTSIDE RECORDS SUMMARY | 2024-11-02 15:16 | XMS_ITS | Encounter Summary ---
Author Organization [facility] Address [address] [place] [address] Care Team Providers Care Electronic Heat Seal Operator Name Role Phone Shahida Sutton APRN RN FAMILY Primary Care Provi ford Unavailable Shahida Sutton APRN RN FAMILY Unavailable Un available Carolynn Ramon RN Unavailable [phone] Augustine Callaway MD Unavailable Brady Lion MD Unavailable Un available Nima France-C Unavailable [phone] Camille Chandler PA-C Unavailable [phone] Anabela Barakat APRN RN FAMILY Unavailable Nima France PA-C Unavailable [phone] Basilio Morillo DO Unavailable [phone] Fawad York MD Unavailable Roopa Almonte MD Unavailable Augustine Callaway MD Unavailable Maryse Burton PA-C Unavailable [phone] Marquita Starkey MD Unavailable [phone] Roopa Almonte MD Unavailable [phone] Griffin Joshi MD Unavailable + Rina Magallon RN Unavailable [phone] Paula Reza MD Primary Care Provider UnavailGriffin Youssef MD Unavailable Roopa Almonte MD Unavailable [phone] [facility] Unavailable Lydia Bernstein-C Unavailable Rosa Maria Love Unavailable [phone] Augustine Callaway MD Unavailable Paula Reza MD Unavailable Unavailable Keerthi Miner APRN RN FAMILY Unavailable [phone] Herman, Shahida Cummings APRN RN FAMILY Unavailable Un available Porsha Michaels APRN RN FAMILY Unavailable + Paula Reza MD Unavailable Unavailable Herman, Shahida Cummings APRN RN FAMILY Unavailable Un available Daylin Ludwig Unavailable [phone] Laurel Velasquez MD Unavailable [phone] Daylin Ludwig Unavailable [phone] Paula Reza MD Unavailable Unavailable Porsha Michaels APRN RN FAMILY Unavailable + Laurel Velasquez MD Unavailable [phone] HermanShahida huerta APRN RN FAMILY Unavailable Un available Marilin Montaño RN FAMILY Unavailable [phone] Esha Dewitt MD Unavailable + [phone] Heather Mosquera MD Unavailable [phone] Paula Reza MD Unavailable Unavailable Esha Dewitt MD Unavailable [phone] Valdo Escamilla PA-C Unavailable Nohelia Abarca PA-C Unavailable [phone] Heather Mosquera MD Unavailable [phone] Fawad York MD Unavailable [phone] Reason for Visit * Reason Comments Medication Refill Encounter Details Date Type Department Care Team (Late st Contact Info) Description 09/17/[address] [address] Shahida Sutton APRN RN FAMILY Medication Refill Social History Tobacco Use Types [...] AM CDT Legal Sex Male 3:40 AM SEWER DIGGER Gender Identity Male 09/20/2020 8:37 AM CDT Sexual Orientation Straight 09/20/2020 8: 37 AM CDT 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 Raven Perry RN on 09/17/2018 [...] Out COVID-19 02/15/2020 02/15/2020 02/16/2020 2:32 PM SEWER DIGGER Rule Out COVID-19 01/05/2021 01/05/2021 01/06/2021 12:57 PM CDT ESBL 01/05/2021 01/05/2021 Rule Out COVID-19 06/30/2021 06/30/2021 07/01/2021 9:34 AM CDT Rule Out COVID-19 07/25/2021 07/25/2021 07/25/2021 8:02 PM CDT Assessment Noted Time PHQ-9 Depression Total Score: 6 12/21/19 18 7:06 AM CDT documented as of this encounter Care Teams Electronic Heat Seal Operator Relationship Specialty Start Date End Date Shahida Sutton APRN RN FAMILY PCP - General Nurse Practitioner 08/17/14 08/04/21 Paula Reza MD PCP - General Internal Medicine 08/05/21 Shahida Sutton APRN RN FAMILY Assigned PCP 07/12/14 09/30/21 Carolynn Ramon RN Personal Advocate & Liaison (PAL) 12/17/18 08/07/21 [place] [address] [facility] [address] Assigned Musculoskeletal Provider 12/26/19 08/21/20 Brady Lion MD Assigned Heart and Vascular Provider 12/26/19 08/14/20 Nima France PA-C [address] [address] Assigned Surgical Provider 05/19/20 08/21/20 Camille Chandler PA-C [address] [place] [address] Assigned Neuroscience Provider 05/19/20 09/14/20 Anabela Barakat APRN RN FAMILY [address] [place] [address] Assigned Heart and Vascular Provider 08/15/20 08/05/21 Nima France PA-C [address] [address] Assigned Musculoskeletal Provider 08/22/20 11/13/20 [place] [address] [facility] [place] [id number] Assigned Musculoskeletal Provider 11/14/20 12/04/20 Fawad York MD 9 [place] [address] Assigned Musculoskeletal Provider 12/05/20 02/05/21 Roopa Almonte MD [address] [facility] 200 [place] [address] Endocrinology, Diabetes, and Metabolism 01/19/21 [place] [address] [facility] [address] [place] [address] Assigned Musculoskeletal Provider 02/06/21 09/16/21 Maryse Burton PA-C [address] [place] [address] Physician Funding Analyst Dermatology 04/14/21 Marquita Starkey MD [address] [facility] 200 [place] [address] Internal Medicine 05/06/21 05/06/21 Roopa Almonte MD [address] [facility] [address] [place] [address] Hospitalist Endocrinology, Diabetes, and Metabolism 05/30/21 Griffin Joshi MD [address] [facility] [address] [place] [address] Cardiovascular Disease 07/25/21 Rina Magallon, RN Lead Air Force Senior Officer 07/29/21 07/11/22 Griffin Joshi MD [address] [facility] [address] [place] [address] Assigned Heart and Vascular Provider 08/06/21 10/07/21 Roopa Almonte MD [address] [facility] 200 [place] [address] Assigned Endocrinology Provider 09/10/21 02/24/24 [place] [address] [facility] [place] [address] Assigned Musculoskeletal Provider 09/17/21 10/14/21 Lydia Bernstein PA-C [address] [place] [address] Assigned PCP 10/01/21 10/21/21 Rosa Maria Love [facility] Community Health Worker 10/06/21 07/11/22 [place] [address] [facility] [address] [place] [address] Assigned Musculoskeletal Provider 10/15/21 04/26/23 Paula Reza MD INACTIVE IN [place] 02/02/2024 Assigned PCP 10/22/21 12/23/21 Keerthi Miner APRN RN FAMILY [address] [place] [address] Assigned Heart and Vascular Provider 10/08/21 02/10/22 Shahida Sutton APRN RN FAMILY Assigned PCP 12/24/21 03/24/22 Porsha Michaels APRN RN FAMILY [address] [place] [address] Assigned Heart and Vascular Provider 02/11/22 05/12/22 Paula Reza MD [place] IN [place] 02/02/2024 Assigned PCP 03/25/22 04/07/22 Shahida Sutton APRN RN FAMILY [address] [place] [address] Assigned PCP 04/08/22 06/30/22 Daylin Ludwig, MIKI [facility] [address] [place] [address] Cardiac Rehabilitation Therapist 05/16/23 Laurel Velasquez MD [address] [place] [address] Assigned Heart and Vascular Provider 05/13/22 06/30/22 Daylin Ludwig, MIKI [facility] [address] [place] [address] Cardiac Rehabilitation Therapist 06/08/22 06/09/23 Paula Reza MD [place]CTIVE IN [place] 02/02/2024 Assigned PCP 07/01/22 07/07/22 Porsha Michaels APRN RN FAMILY [address] [place] [address] Assigned Heart and Vascular Provider 07/01/22 07/07/22 Laurel Velasquez MD [address] [place] [address] Assigned Heart and Vascular Provider 07/08/22 08/04/22 Shahida Sutton APRN RN FAMILY Assigned PCP 07/08/22 09/08/22 Marilin Montaño, RN FAMILY [address] [place] [address] Assigned Heart and Vascular Provider 08/05/22 02/24/24 Esha Dewitt MD [address] [address] Gastroenterology 09/06/22 Heather Mosquera MD [address] [place] [address] Internal Medicine 09/06/22 Paula Reza MD [place]NACTIVE IN [place] 02/02/2024 Assigned PCP 09/09/22 01/05/23 Esha Dewitt MD [address] [place] [address] Assigned Gastroenterology Provider 09/23/22 04/26/24 Valdo Escamilla PA-C [address] [place] [address] Assigned Neuroscience Provider 09/30/22 04/26/24 Nohelia Abarca PA-C [address] [place] [address] Physician Funding Analyst Gastroenterology 10/03/22 Heather Mosquera MD [address] [place] [address] Assigned PCP 01/06/23 Fawad York MD [address] [place] [address] Assigned Musculoskeletal Provider 04/27/23 06/25/23 documented as of this encounter
--- OUTSIDE RECORDS SUMMARY | 2024-11-02 15:16 | XMS_ITS | Encounter Summary ---
Author Organization [place] Address [address] [place] [address] Care Team Providers Care Echocardiologist Name Role Phone Shahida Sutton APRN ENERGY BROKER Primary Care Provi ford Unavailable Shahida Sutton APRN ENERGY BROKER Unavailable Un available Carolynn Ramon RN Unavailable [phone] Augustine Callaway MD Unavailable Brady Lion MD Unavailable Un available Nima France-C Unavailable [phone] Camille Chandler PA-C Unavailable [phone] Anabela Barakat APRN ENERGY BROKER Unavailable Nima France PA-C Unavailable [phone] Basilio Morillo DO Unavailable Fawad [place] MD Unavailable Roopa Almonte MD Unavailable [phone] Augustine Callaway MD Unavailable Maryse Burton PA-C Unavailable Marquita Starkey MD Unavailable [phone] Roopa Almonte MD Unavailable [phone] Griffin Joshi MD Unavailable + Rina Magallon RN Unavailable [phone] Paula Reza MD Primary Care Provider UnavailGriffin Youssef MD Unavailable Roopa Almonte MD Unavailable [phone] [facility] Unavailable Lydia Bernstein-C Unavailable Rosa Maria Love Unavailable [phone] Augustine Callaway MD Unavailable Paula Reza MD Unavailable Unavailable Keerthi Miner APRN ENERGY BROKER Unavailable [phone] Herman, Shahida Cummings APRN ENERGY BROKER Unavailable Un available Porsha Michaels APRN ENERGY BROKER Unavailable + Paula Reza MD Unavailable Unavailable Herman, Shahida Cummings APRN ENERGY BROKER Unavailable Un available Daylin Ludwig Unavailable [phone] Laurel Velasquez MD Unavailable [phone] Daylin Ludwig Unavailable +[phone] Paula Reza MD Unavailable Unavailable Porsha Michaels APRN ENERGY BROKER Unavailable + Laurel Velasquez MD Unavailable + [phone] HermanShahida huerta APRN ENERGY BROKER Unavailable Un available Marilin Montaño ENERGY BROKER Unavailable +[phone] Esha Dewitt MD Unavailable + [phone] Heather Mosquera MD Unavailable [phone] Paula Reza MD Unavailable Unavailable Esha Dewitt MD Unavailable [phone] Valdo Escamilla PA-C Unavailable [phone] Nohelia Abarca PA-C Unavailable [phone] Heather Mosquera MD Unavailable Fawad [place] MD Unavailable [phone] Reason for Visit * Reason Comments Medication Refill BASAGLAR 100 U/ML KW IKPEN INJ 3ML Encounter Details Date Type Department Care Team (Late st Contact Info) Description 06/27/[address] [phone] Shahida Sutton, DUANE ENERGY BROKER Medication Refill (BASAGLAR 100 U/ML KWIKPEN INJ [...] AM CDT Legal Sex Male 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 Marilin Cuevas RN -- [facility] * Telephone Encounter - Neha [...] Out COVID-19 02/15/2020 02/15/2020 02/16/2020 2:32 PM FINANCIAL ASSOCIATE Rule Out COVID-19 01/05/2021 01/05/2021 01/06/2021 12:57 PM CDT ESBL 01/05/2021 01/05/2021 Rule Out COVID-19 06/30/2021 06/30/2021 07/01/2021 9:34 AM CDT Rule Out COVID-19 07/25/2021 07/25/2021 07/25/2021 8:02 PM CDT Assessment Noted Time PHQ-9 Depression Total Score: 6 12/21/19 18 7:06 AM CDT documented as of this encounter Care Teams Echocardiologist Relationship Specialty Start Date End Date Shahida Sutton APRN ENERGY BROKER PCP - General Nurse Practitioner 08/17/14 08/04/21 Paula Reza MD PCP - General Internal Medicine 08/05/21 Shahida Sutton APRN ENERGY BROKER Assigned PCP 07/12/14 09/30/21 Carolynn Ramon RN Personal Advocate & Liaison (PAL) 12/17/18 08/07/21 [place] [address] [place] [address] Assigned Musculoskeletal Provider 12/26/19 08/21/20 Brady Lion MD Assigned Heart and Vascular Provider 12/26/19 08/14/20 Nima France PA-C [address] [place] [address] Assigned Surgical Provider 05/19/20 08/21/20 Camille Chandler PA-C [address] [facility] [address] [place] [address] Assigned Neuroscience Provider 05/19/20 09/14/20 Anabela Barakat APRN CNP [address]00 [place] [address] Assigned Heart and Vascular Provider 08/15/20 08/05/21 Nima France PA-C [address] [facility] 450 [place] [address] Assigned Musculoskeletal Provider 08/22/20 11/13/20 [place] [address] [place] [address] Assigned Musculoskeletal Provider 11/14/20 12/04/20 Fawad [place] MD [address] [place], [place] [address] Assigned Musculoskeletal Provider 12/05/20 02/05/21 Roopa Almonte MD [address] [facility] 200 [place] [address] Endocrinology, Diabetes, and Metabolism 01/19/21 [place] [address] [facility] 300 [place] [address] Assigned Musculoskeletal Provider 02/06/21 09/16/21 Maryse Burton PA-C [address] [place] [address] Physician [employer] Factory Worker Dermatology 04/14/21 Marquita Starkey MD [address] [facility] [address] [place] [address] Internal Medicine 05/06/21 05/06/21 Roopa Almonte MD [address] [facility] [address] [place] [address] Hospitalist Endocrinology, Diabetes, and Metabolism 05/30/21 Griffin Joshi MD [address] [place], [place] [address] Cardiovascular Disease 07/25/21 Rina Magallon, RN Lead Sample Grinder 07/29/21 07/11/22 Griffin Joshi MD [address] [place] [address] Assigned Heart and Vascular Provider 08/06/21 10/07/21 Roopa Almonte MD [address] [place] [address] Assigned Endocrinology Provider 09/10/21 02/24/24 [place] [address] [facility] [place] [address] Assigned Musculoskeletal Provider 09/17/21 10/14/21 Lydia Bernstein PA-C [address] [place] [address] Assigned PCP 10/01/21 10/21/21 Rosa Maria Love CHW Community Health Worker 10/06/21 07/11/22 [place] [address] [place] [address] Assigned Musculoskeletal Provider 10/15/21 04/26/23 Paula Reza [place] 02/02/2024 Assigned PCP 10/22/21 12/23/21 Keerthi Miner APRN ENERGY BROKER [address] [place] [address] Assigned Heart and Vascular Provider 10/08/21 02/10/22 Shahida Sutton APRN ENERGY BROKER Assigned PCP 12/24/21 03/24/22 Porsha Michaels APRN ENERGY BROKER [address] [place] [place] [address] Assigned Heart and Vascular Provider 02/11/22 05/12/22 Paula Reza MD [place] 02/02/2024 Assigned PCP 03/25/22 04/07/22 Shahida Sutton APRN ENERGY BROKER [address] [place] [address] Assigned PCP 04/08/22 06/30/22 Daylin Ludwig EP [facility] [address] [place] [address] Cardiac Rehabilitation Therapist 05/16/23 Laurel Velasquez MD [address] [address] Assigned Heart and Vascular Provider 05/13/22 06/30/22 ParthdavidMigueDaylinMIKI Chandler [facility] [address] [place], [place] [address] Cardiac Rehabilitation Therapist 06/08/22 06/09/23 Paula Reza MD [place] 02/02/2024 Assigned PCP 07/01/22 07/07/22 Porsha Michaels APRN ENERGY BROKER [address] [place] [address] Assigned Heart and Vascular Provider 07/01/22 07/07/22 Laurel Velasquez MD [address] [place] [address] Assigned Heart and Vascular Provider 07/08/22 08/04/22 Shahida Sutton, DUANE ENERGY BROKER Assigned PCP 07/08/22 09/08/22 Marilin Montaño, ENERGY BROKER [address] [place] [address] Assigned Heart and Vascular Provider 08/05/22 02/24/24 Esha Dewitt MD [address] [place] [address] 36 [place], [place] [address] Gastroenterology 09/06/22 Heather Mosquera MD [address] [place] [address] Internal Medicine 09/06/22 Paula Reza MD [place] 02/02/2024 Assigned PCP 09/09/22 01/05/23 Esha Dewitt MD [address] [facility] 36 [place] [address] Assigned Gastroenterology Provider 09/23/22 04/26/24 Valdo Escamilla PA-C [address] [place] [address] Assigned Neuroscience Provider 09/30/22 04/26/24 Nohelia Abarca PA-C [address] [place] [address] Physician [employer] Factory Worker Gastroenterology 10/03/22 Heather Mosquera MD [address] [place] [address] Assigned PCP 01/06/23 Fawad [place] MD [address] [place], [place] [address] Assigned Musculoskeletal Provider 04/27/23 06/25/23 documented as of this encounter
--- OUTSIDE RECORDS SUMMARY | 2024-11-02 15:16 | XMS_ITS | Encounter Summary ---
Author Organization [place] Address [address] [place] [address] Care Team Providers Care Renal Technician Name Role Phone Roopa Almonte MD Unavailable [phone] Maryse Burton PA-C Unavailable [phone] Roopa Almonte MD Unavailable [phone] Griffin Joshi MD Unavailable Rina Magallon RN Unavailable [phone] Paula Reza MD Primary Care Provider Unavailabl e Roopa Almonte MD Unavailable [phone] Rosa Maria Love Unavailable [phone] Augustine Callaway MD Unavailable Keerthi Miner APRN LINE ASSEMBLY UTILITY WORKER Unavailable [phone] Shahida Sutton APRN LINE ASSEMBLY UTILITY WORKER Unavailable Un available Porsha Michaels APRN LINE ASSEMBLY UTILITY WORKER Unavailable [phone] Paula Reza MD Unavailable Unavailable Shahida Sutton APRN LINE ASSEMBLY UTILITY WORKER Unavailable Un available Daylin Ludwig Unavailable [phone] Laurel Velasquez MD Unavailable [phone] Daylin Ludwig Unavailable [phone] Paula Reza MD Unavailable Unavailable Brando, Porsha ZEPEDA LINE ASSEMBLY UTILITY WORKER Unavailable [phone] Laurel Velasquez MD Unavailable [phone] HermanInduprincess Cummings RENT AND HOUSING INVESTIGATOR LINE ASSEMBLY UTILITY WORKER Unavailable Un available Marilin Montaño LINE ASSEMBLY UTILITY WORKER Unavailable [phone] Esha Dewitt MD Unavailable [phone] Heather Mosquera MD Unavailable [phone] Paula Reza MD Unavailable Unavailable Esha Dewitt MD Unavailable [phone] Valdo Escamilla PA-C Unavailable [phone] Nohelia Abarca PA-C Unavailable [phone] Heather Mosquera MD Unavailable [phone] Fawad [place] MD Unavailable [phone] Encounter Details Date Type Department Care Team (Late st Contact Info) Description 01/10/2022 [facility] [address] [phone] [place] Social History Tobacco Use Types [...] AM CDT Legal Sex Male 3:40 AM AGENT SPA DESK Gender Identity Male 09/20/2020 8:37 AM CDT Sexual Orientation Straight 09/20/2020 8: 37 AM CDT 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 No / Unsure 01/12/2022 10:27 AM AGENT SPA DESK documented as of this encounter Plan of Treatment Not on file documented as of this encounter Visit Diagnoses Not on filedocumented in this encounter Additional Health Concerns Infection Onset Date Last Indicated Resolved Time ESBL 01/05/2021 01/05/2021 Assessment Noted Time PHQ-9 Depression Total Score: 7 01/04/20 22 4:11 PM CDT documented as of this encounter Care Teams Renal Technician Relationship Specialty Start Date End Date Paula Reza MD PCP - General Internal Medicine 08/05/21 Roopa Almonte MD [address] [address] Endocrinology, Diabetes, and Metabolism 01/19/21 Maryse Burton PA-C [address] [place] [address] Physician Noodle Catalyst Maker Dermatology 04/14/21 Roopa Almonte MD [address] [facility] 200 [place] [address] Hospitalist Endocrinology, Diabetes, and Metabolism 05/30/21 Griffin Joshi MD [address] [place] [address] Cardiovascular Disease 07/25/21 Rina Magallon, RN Lead Insurance Consultant 07/29/21 07/11/22 Roopa Almonte MD [address] [place] [address] 200 [place] [address] Assigned Endocrinology Provider 09/10/21 02/24/24 Rosa Maria Love CHW Community Health Worker 10/06/21 07/11/22 [place] [address] [facility] 300 [place] [address] Assigned Musculoskeletal Provider 10/15/21 04/26/23 Keerthi Miner APRN LINE ASSEMBLY UTILITY WORKER [address] [place] [address] Assigned Heart and Vascular Provider 10/08/21 02/10/22 Shahida Sutton APRN LINE ASSEMBLY UTILITY WORKER Assigned PCP 12/24/21 03/24/22 Porsha Michaels APRN LINE ASSEMBLY UTILITY WORKER [address] [place] [address] Assigned Heart and Vascular Provider 02/11/22 05/12/22 Paula Reza MD [place] 02/02/2024 Assigned PCP 03/25/22 04/07/22 Shahida Sutton APRN LINE ASSEMBLY UTILITY WORKER [place] 02/02/2024 Assigned PCP 04/08/22 06/30/22 Daylin Ludwig, EP [facility] [address] [address] Cardiac Rehabilitation Therapist 05/16/23 Laurel Velasquez MD [address] [address] Assigned Heart and Vascular Provider 05/13/22 06/30/22 Daylin Ludwig, MIKI [facility] [address] [place] [address] Cardiac Rehabilitation Therapist 06/08/22 06/09/23 Paula Reza MD [place] 02/02/2024 Assigned PCP 07/01/22 07/07/22 Porsha Michaels APRN LINE ASSEMBLY UTILITY WORKER [address] [place] [address] Assigned Heart and Vascular Provider 07/01/22 07/07/22 Laurel Velasquez MD [address] [place] [address] Assigned Heart and Vascular Provider 07/08/22 08/04/22 Shahida Sutton APRN LINE ASSEMBLY UTILITY WORKER Assigned PCP 07/08/22 09/08/22 Marilin Montaño, LINE ASSEMBLY UTILITY WORKER [address] [place] [address] Assigned Heart and Vascular Provider 08/05/22 02/24/24 Esha Dewitt MD [address] [facility] 36 [place] [address] Gastroenterology 09/06/22 Heather Mosquera MD [address] [place] [address] Internal Medicine 09/06/22 Paula Reza MD [place] 02/02/2024 Assigned PCP 09/09/22 01/05/23 Esha Dewitt MD [address] [address] Assigned Gastroenterology Provider 09/23/22 04/26/24 Valdo Escamilla PA-C [address] [place] [address] Assigned Neuroscience Provider 09/30/22 04/26/24 Nohelia Abarca PA-C [address] [place] [address] Physician Noodle Catalyst Maker Gastroenterology 10/03/22 Heather Mosquera MD [address] [place] [address] Assigned PCP 01/06/23 Fawad [place] MD [address] [place], [place] [address] Assigned Musculoskeletal Provider 04/27/23 06/25/23 documented as of this encounter
--- OUTSIDE RECORDS SUMMARY | 2024-11-02 15:16 | XMS_ITS | Encounter Summary ---
Author Organization [place] Address [address] [place] [address] Care Team Providers Care Biblical Languages Professor Name Role Phone Mingo Aldana MD Primary Car e Provider HermanShahida APRN INFORMATION SECURITY Primary Care Provi ford Unavailable Herman, Shahida Cummings APRN INFORMATION SECURITY Unavailable Un available Herman, Shahida Cummings APRN INFORMATION SECURITY Unavailable Un available Carolynn Ramon RN Unavailable [phone] Augustine Callaway MD Unavailable Brady Lion MD Unavailable Un available Nima FranceC Unavailable [phone] Camille Chandler-C Unavailable [phone] Anabela Barakat APRN INFORMATION SECURITY Unavailable Nima FranceC Unavailable [phone] Basilio Morillo DO Unavailable [phone] Fawad [place] MD Unavailable [phone] Roopa Almonte MD Unavailable [phone] Augustine Callaway MD Unavailable Maryse Burton PA-C Unavailable [phone] Marquita Starkey MD Unavailable [phone] Roopa Almonte MD Unavailable [phone] Griffin Joshi MD Unavailable Rina Magallon RN Unavailable [phone] Paula Reza MD Primary Care Provider UnavailGriffin Youssef MD Unavailable Roopa Almonte MD Unavailable [phone] [facility] Naik Unavailable Lydia Bernstein PA-C Unavailable Rosa Maria Love Unavailable [phone] Augustine Callaway MD Unavailable Paula Reza MD Unavailable Unavailable Keerthi Miner APRN INFORMATION SECURITY Unavailable [phone] Herman, Shahida Cummings APRN INFORMATION SECURITY Unavailable Un available Porsha Michaels APRN INFORMATION SECURITY Unavailable [phone] Paula Reza MD Unavailable Unavailable Herman, Shahida Cummings APRN INFORMATION SECURITY Unavailable Un available Daylin Ludwig Unavailable [phone] Laurel Velasquez MD Unavailable [phone] Daylin Ludwig Unavailable [phone] Paula Reza MD Unavailable Unavailable Porsha Michaels APRN INFORMATION SECURITY Unavailable [phone] Laurel Velasquez MD Unavailable [phone] Shahida Sutton APRN INFORMATION SECURITY Unavailable Un available Marilin Montaño INFORMATION SECURITY Unavailable [phone] Esha Dewitt MD Unavailable [phone] Heather Mosquera MD Unavailable [phone] Paula Reza MD Unavailable Unavailable Esha Dewitt MD Unavailable [phone] Valdo Escamilla PA-C Unavailable Nohelia Abarca PA-C Unavailable [phone] Heather Mosquera MD Unavailable Fawad [place] MD Unavailable Encounter Details Date Type Department Care Team (Late st Contact Info) Description 07/03/2011 [facility] Medical Advice [address] [phone] Mingo Aldana MD [facility] [employer] [facility] [address] [place] [address] Social History Tobacco Use Types Packs/Day Years Used Date Smoking Tobacco: Former Cigarettes 0.5 25 1 - 12/09/2006 Cigars Smokeless Tobacco: Never Comments:occasionally Alcohol Use Standard Drinks/Week Comments Yes 0 (1 standard drink = 0.6 oz pur e alcohol) Very Occasionally Sex and Gender Information Value Date Recorded Sex Assigned at Male 09/20/2020 8:37 AM CDT Legal Sex Male 3:40 AM ASSOCIATE FACULTY Gender Identity Male 09/20/2020 8:37 AM CDT Sexual Orientation Straight 09/20/2020 8: 37 AM CDT documented as of this encounter Plan of Treatment Not on file documented as of this encounter Visit Diagnoses Not on filedocumented in this encounter Additional Health Concerns Infection Onset Date Last Indicated Resolved Time Rule Out COVID-19 02/15/2020 02/15/2020 02/16/2020 2:32 PM ASSOCIATE FACULTY Rule Out COVID-19 01/05/2021 01/05/2021 01/06/2021 12:57 PM CDT ESBL 01/05/2021 01/05/2021 Rule Out COVID-19 06/30/2021 06/30/2021 07/01/2021 9:34 AM CDT Rule Out COVID-19 07/25/2021 07/25/2021 07/25/2021 8:02 PM CDT documented as of this encounter Care Teams Biblical Languages Professor Relationship Specialty Start Date End Date Mingo Aldana MD PCP - General Family Practice 07/22/09 07/12/14 Shahida Sutton APRN INFORMATION SECURITY PCP - General Nurse Practitioner 08/17/14 08/04/21 Shahida Sutton APRN INFORMATION SECURITY PCP - Assigned PCP 07/12/14 05/07/18 Paula Reza MD PCP - General Internal Medicine 08/05/21 Shahida Sutton APRN INFORMATION SECURITY Assigned PCP 07/12/14 09/30/21 Carolynn Ramon RN Personal Advocate & Liaison (PAL) 12/17/18 08/07/21 [place] [address] [place] [address] Assigned Musculoskeletal Provider 12/26/19 08/21/20 Brady Lion MD Assigned Heart and Vascular Provider 12/26/19 08/14/20 Nima France PA-C [address] [place] [address] Assigned Surgical Provider 05/19/20 08/21/20 Camille Chandler PA-C [address] [place] [address] Assigned Neuroscience Provider 05/19/20 09/14/20 Anabela Barakat CASTING SORTER INFORMATION SECURITY [address] [place] [address] Assigned Heart and Vascular Provider 08/15/20 08/05/21 Nima France PA-C [address] [facility] 450 [place] [address] Assigned Musculoskeletal Provider 08/22/20 11/13/20 [place] [address] [facility] [place], [place] [address] Assigned Musculoskeletal Provider 11/14/20 12/04/20 Fawad [place] MD [address] [place], [place] [address] Assigned Musculoskeletal Provider 12/05/20 02/05/21 Roopa Almonte MD [address] [facility] 200 [place] [address] Endocrinology, Diabetes, and Metabolism 01/19/21 [place] [address] [facility] 300 [place] [address] Assigned Musculoskeletal Provider 02/06/21 09/16/21 Maryse Burton PA-C [address]200 [place] [address] Physician Loader Helper Dermatology 04/14/21 Marquita Starkey MD [address] [facility] 200 [place] [address] Internal Medicine 05/06/21 05/06/21 Roopa Almonte MD [address] [facility] 200 [place] [address] Hospitalist Endocrinology, Diabetes, and Metabolism 05/30/21 Griffin Joshi MD [address] [place] [address] Cardiovascular Disease 07/25/21 Rina Magallon, RN Lead Ditch Inspector 07/29/21 07/11/22 Griffin Joshi MD [address] [place] [address] Assigned Heart and Vascular Provider 08/06/21 10/07/21 Roopa Almonte MD [address] [facility] 200 [place] [address] Assigned Endocrinology Provider 09/10/21 02/24/24 [place] [address] [place] [address] Assigned Musculoskeletal Provider 09/17/21 10/14/21 Lydia Bernstein PA-C [address] [place] [address] Assigned PCP 10/01/21 10/21/21 Rosa Maria Love CHW Community Health Worker 10/06/21 [place] [address] [address] [facility] [address] [place] [address] Assigned Musculoskeletal Provider 10/15/21 04/26/23 Paula Reza MD [place]NACTIVE IN [place] 02/02/2024 Assigned PCP 10/22/21 12/23/21 Keerthi Miner APRN INFORMATION SECURITY [address] [place], [place] [address] Assigned Heart and Vascular Provider 10/08/21 02/10/22 Shahida Sutton CASTING SORTER INFORMATION SECURITY Assigned PCP 12/24/21 03/24/22 Porsha Michaels APRN INFORMATION SECURITY [address] [place] [address] Assigned Heart and Vascular Provider 02/11/22 05/12/22 Paula Reza MD [place]CTIVE [place] 02/02/2024 Assigned PCP 03/25/22 04/07/22 Shahida Sutton, CASTING SORTER INFORMATION SECURITY [address] [place] [address] Assigned PCP 04/08/22 06/30/22 Daylin Ludwig, EP [facility] [address] [place] [address] Cardiac Rehabilitation Therapist 05/16/23 Laurel Velasquez MD [address] [place] [address] Assigned Heart and Vascular Provider 05/13/22 06/30/22 Daylin Ludwig, EP [facility] [address] [place] [address] Cardiac Rehabilitation Therapist 06/08/22 06/09/23 Paula Reza MD [place] 02/02/2024 Assigned PCP 07/01/22 07/07/22 Porsha Michaels APRN INFORMATION SECURITY [address] [place] [address] Assigned Heart and Vascular Provider 07/01/22 07/07/22 Laurel Velasquez MD [address] [place] [address] Assigned Heart and Vascular Provider 07/08/22 08/04/22 Shahida Sutton APRN INFORMATION SECURITY Assigned PCP 07/08/22 09/08/22 Marilin Montaño, INFORMATION SECURITY [address] [place] [address] Assigned Heart and Vascular Provider 08/05/22 02/24/24 Esha Dewitt MD [address] [place] [address] Gastroenterology 09/06/22 Heather Mosquera MD [address] [place] [address] Internal Medicine 09/06/22 Paula Reza MD [place]IVE [place] 02/02/2024 Assigned PCP 09/09/22 01/05/23 Esha Dewitt MD [address] [place] [address] Assigned Gastroenterology Provider 09/23/22 04/26/24 Valdo Escamilla PA-C [address] [place] [address] Assigned Neuroscience Provider 09/30/22 04/26/24 Nohelia Abarca PA-C [address] [place] [address] Physician Loader Helper Gastroenterology 10/03/22 Heather Mosquera MD [address] [place] [address] Assigned PCP 01/06/23 Fawad [place] MD [address] [place] [address] Assigned Musculoskeletal Provider 04/27/23 06/25/23 documented as of this encounter
--- OUTSIDE RECORDS SUMMARY | 2024-11-02 15:16 | XMS_ITS | Encounter Summary ---
Author Organization [place] Address [address] [place] [address] Care Team Providers Care Sales Support Advisor Name Role Phone HermanShahida huerta APRN NUTRITIONAL CHEMIST Primary Care Provi ford Unavailable Herman, Shahida Cummings APRN NUTRITIONAL CHEMIST Unavailable Un available Herman, Shahida Cummings APRN NUTRITIONAL CHEMIST Unavailable Un available Carolynn Ramon RN Unavailable [phone] Augustine Callaway MD Unavailable Brady Lion MD Unavailable Un available Nima France PA-C Unavailable [phone] Camille Chandler PA-C Unavailable [phone] Anabela Barkaat APRN NUTRITIONAL CHEMIST Unavailable Nima France PA-C Unavailable [phone] Basilio Morillo DO Unavailable Fawad York MD Unavailable [phone] Roopa Almonte MD Unavailable [phone] Augsutine Callaway MD Unavailable Maryse Burton PA-C Unavailable [phone] Marquita Starkey MD Unavailable [phone] Roopa Almonte MD Unavailable [phone] Griffin Joshi MD Unavailable Rina Magallon RN Unavailable [phone] Paula Reza MD Primary Care Provider UnavailGriffin Youssef MD Unavailable Roopa Almonte MD Unavailable [phone] [facility] Un[facility] Lydia Bernstein-C Unavailable Rosa Maria Love Unavailable [phone] Augustine Callaway MD Unavailable Paula Reza MD Unavailable Unavailable Keerthi Miner APRN NUTRITIONAL CHEMIST Unavailable [phone] Herman, Shahida Cummings APRN NUTRITIONAL CHEMIST Unavailable Un available Porsha Michaels APRN NUTRITIONAL CHEMIST Unavailable [phone] Paula Reza MD Unavailable Unavailable HermanShahida APRN NUTRITIONAL CHEMIST Unavailable Un available Daylin Ludwig Unavailable [phone] Laurel Velasquez MD Unavailable [phone] Daylin Ludwig Unavailable [phone] Paula Reza MD Unavailable Unavailable Porsha Michaels APRN NUTRITIONAL CHEMIST Unavailable [phone] Laurel Velasquez MD Unavailable [phone] HermanShahida huerta APRN NUTRITIONAL CHEMIST Unavailable Un available Marilin Montaño NUTRITIONAL CHEMIST Unavailable [phone] Esha Dewitt MD Unavailable [phone] Heather Mosquera MD Unavailable [phone] Paula Reza MD Unavailable Unavailable Esha Dewitt MD Unavailable [phone] Valdo Escamilla PA-C Unavailable [phone] Nohelia Abarca PA-C Unavailable [phone] Heather Mosquera MD Unavailable Fawad York MD Unavailable [phone] Reason for Visit * Reason Onset Date Comments Refill Request 04/17/2018 zolpidem Encounter Details Date Type Department Care Team (Late st Contact Info) Description 04/17/2018 MyC Refill [facility] [id number] [place] [phone] Shahida Sutton APRN CNP Refill Request [...] AM CDT Legal Sex Male 3:40 AM BLOCKER HAND Gender Identity Male 09/20/2020 8:37 AM CDT Sexual Orientation Straight 09/20/2020 8: 37 AM CDT 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 [facility] [address] Requested Prescriptions Pending Prescriptions Disp Refills ??? zolpidem (AMBIEN) 10 MG tablet 30 tablet 3 Sig: Take 1 tablet (10 mg) by mouth nightly as needed for sleep There is no refill protocol information for this order Paula Calderon RN, BSN Message handled by Nurse Triage. KER HAND documented in this encounter Plan of Treatment Not on file documented as of this encounter Visit Diagnoses Diagnosis Other insomnia documented in this encounter Additional Health Concerns Infection Onset Date Last Indicated Resolved Time Rule Out COVID-19 02/15/2020 02/15/2020 02/16/2020 2:32 PM BLOCKER HAND Rule Out COVID-19 01/05/2021 01/05/2021 01/06/2021 12:57 PM CDT ESBL 01/05/2021 01/05/2021 Rule Out COVID-19 06/30/2021 06/30/2021 07/01/2021 9:34 AM CDT Rule Out COVID-19 07/25/2021 07/25/2021 07/25/2021 8:02 PM CDT Assessment Noted Time PHQ-9 Depression Total Score: 6 12/21/19 18 7:06 AM CDT documented as of this encounter Care Teams Sales Support Advisor Relationship Specialty Start Date End Date Shahida Sutton APRN NUTRITIONAL CHEMIST PCP - General Nurse Practitioner 08/17/14 08/04/21 Shahida Sutton APRN NUTRITIONAL CHEMIST PCP - Assigned PCP 07/12/14 05/07/18 Paula Reza MD PCP - General Internal Medicine 08/05/21 Shahida Sutton APRN NUTRITIONAL CHEMIST Assigned PCP 07/12/14 09/30/21 Carolynn Ramon RN Personal Advocate & Liaison (PAL) 12/17/18 08/07/21 [place] [address] [place] [address] Assigned Musculoskeletal Provider 12/26/19 08/21/20 rBady Lion MD Assigned Heart and Vascular Provider 12/26/19 08/14/20 Nima France PA-C [address] [facility] [address] [place] [address] Assigned Surgical Provider 05/19/20 08/21/20 Camille Chandler PA-C [address] [facility] S [facility] [address] [place], [place] [address] Assigned Neuroscience Provider 05/19/20 09/14/20 Anabela Barakat APRN NUTRITIONAL CHEMIST [address] [place] [address] Assigned Heart and Vascular Provider 08/15/20 08/05/21 Nima France PA-C [address] [facility] [address] [place] [address] Assigned Musculoskeletal Provider 08/22/20 11/13/20 [place] [address] [facility] [place] [address] Assigned Musculoskeletal Provider 11/14/20 12/04/20 Fawad York MD [address] [place], [place] [address] Assigned Musculoskeletal Provider 12/05/20 02/05/21 Roopa Almonte MD [address] [facility] [address] [place], [place] [address] Endocrinology, Diabetes, and Metabolism 01/19/21 [place] [address] [facility] [address] [place] [address] Assigned Musculoskeletal Provider 02/06/21 09/16/21 Maryse Burton PA-C [address] [place] [address] Physician Attending Physician Dermatology 04/14/21 Marquita Starkey MD [address] [facility] [facility] [address] [place], [place] [address] Internal Medicine 05/06/21 05/06/21 Roopa Almonte MD [address] [address] Hospitalist Endocrinology, Diabetes, and Metabolism 05/30/21 Griffin Joshi MD [address] [place] [address] [place] [address] Cardiovascular Disease 07/25/21 Rina Magallon, RN Lead Boiler Erector 07/29/21 07/11/22 Griffin Joshi MD [address] [place] [id number] [place] [address] Assigned Heart and Vascular Provider 08/06/21 10/07/21 Roopa Almonte MD [address] [address] [place], [place] [address] Assigned Endocrinology Provider 09/10/21 02/24/24 [place] [address] [place] [address] Assigned Musculoskeletal Provider 09/17/21 10/14/21 Lydia Bernstein PA-C [address] [place], [place] [address] Assigned PCP 10/01/21 10/21/21 Rosa Maria Love, [facility] Community Health Worker 10/06/21 07/11/22 [place] [address] [place] [address] Assigned Musculoskeletal Provider 10/15/21 04/26/23 Paula Reza MD INACTIVE IN [place] 02/02/2024 Assigned PCP 10/22/21 12/23/21 Keerthi Miner APRN NUTRITIONAL CHEMIST [address] [place] [address] Assigned Heart and Vascular Provider 10/08/21 02/10/22 Shahida Sutton APRN NUTRITIONAL CHEMIST Assigned PCP 12/24/21 03/24/22 Porsha Michaels APRN NUTRITIONAL CHEMIST [address] [place] [address] Assigned Heart and Vascular Provider 02/11/22 05/12/22 Paula Reza MD [place] 02/02/2024 Assigned PCP 03/25/22 04/07/22 Shahida Sutton APRN NUTRITIONAL CHEMIST [address] [place] [address] Assigned PCP 04/08/22 06/30/22 Daylin Ludwig, [facility] [address] [place] [address] Cardiac Rehabilitation Therapist 05/16/23 Laurel Velasquez MD [address] [place] [address] Assigned Heart and Vascular Provider 05/13/22 06/30/22 Daylin Ludwig, [facility] [address] [place] [address] Cardiac Rehabilitation Therapist 06/08/22 06/09/23 Paula Reza MD [place] 02/02/2024 Assigned PCP 07/01/22 07/07/22 Porsha Michaels APRN NUTRITIONAL CHEMIST [address] [place] [address] Assigned Heart and Vascular Provider 07/01/22 07/07/22 Laurel Velasquez MD [address] [place] [address] Assigned Heart and Vascular Provider 07/08/22 08/04/22 Shahida Sutton APRN NUTRITIONAL CHEMIST Assigned PCP 07/08/22 09/08/22 Marilin Montaño, NUTRITIONAL CHEMIST [address] [place] [address] Assigned Heart and Vascular Provider 08/05/22 02/24/24 Esha Dewitt MD [address] [facility] 36 [place] [address] Gastroenterology 09/06/22 Heather Mosquera MD [address] [place] [address] Internal Medicine 09/06/22 Paula Reza MD [place] 02/02/2024 Assigned PCP 09/09/22 01/05/23 Esha Dewitt MD [address] [address] Assigned Gastroenterology Provider 09/23/22 04/26/24 Valdo Escamilla PA-C [address] [place] [address] Assigned Neuroscience Provider 09/30/22 04/26/24 Nohelia Abarca PA-C [address] [place] [address] Physician Attending Physician Gastroenterology 10/03/22 Heather Mosquera MD [address] [place] [address] Assigned PCP 01/06/23 Fawad York MD [address] [place] [address] Assigned Musculoskeletal Provider 04/27/23 06/25/23 documented as of this encounter
--- OUTSIDE RECORDS SUMMARY | 2024-11-02 15:17 | XMS_ITS | Encounter Summary ---
Author Organization [place] Address [address] [place] [address] Care Team Providers Care Lining Brusher Name Role Phone Mingo Aldana MD Primary Car e Provider HermanShahida APRN DOCUMENT ANALYST Primary Care Provi ford Unavailable Herman, Shahida Cummings APRN DOCUMENT ANALYST Unavailable Un available Herman, Shahida Cummings APRN DOCUMENT ANALYST Unavailable Un available Carolynn Ramon RN Unavailable [phone] Augustine Callaway MD Unavailable Brady Lion MD Unavailable Un available Nima FranceC Unavailable [phone] Camille Chandler-C Unavailable [phone] Anabela Barakat APRN DOCUMENT ANALYST Unavailable Nima FranceC Unavailable [phone] Basilio Morillo DO Unavailable [phone] Fawad York MD Unavailable [phone] Roopa Almotne MD Unavailable [phone] Augustine Callaway MD Unavailable Maryse Burton PA-C Unavailable [phone] Marquita Starkey MD Unavailable [phone] Roopa Almonte MD Unavailable [phone] Griffin Joshi MD Unavailable Rina Magallon RN Unavailable [phone] Paula Reza MD Primary Care Provider UnavailGriffin Youssef MD Unavailable Roopa Almonte MD Unavailable [phone] [facility] Bas[facility] Naik Unavailable Lydia Bernstein PA-C Unavailable Rosa Maria Love Unavailable [phone] Augustine Callaway MD Unavailable Paula Reza MD Unavailable Unavailable Keerthi Miner APRN DOCUMENT ANALYST Unavailable [phone] Herman, Shahida Cummings APRN DOCUMENT ANALYST Unavailable Un available Porsha Michaels APRN DOCUMENT ANALYST Unavailable [phone] Paula Reza MD Unavailable Unavailable Herman, Shahida Cummings APRN DOCUMENT ANALYST Unavailable Un available Daylin Ludwig Unavailable [phone] Laurel Velasquez MD Unavailable [phone] Daylin Ludwig Unavailable [phone] Paula Reza MD Unavailable Unavailable Porsha Michaels APRN DOCUMENT ANALYST Unavailable [phone] Laurel Velasquez MD Unavailable [phone] Shahida Sutton APRN DOCUMENT ANALYST Unavailable Un available Marilin Montaño DOCUMENT ANALYST Unavailable [phone] Esha Dewitt MD Unavailable [phone] Heather Mosquera MD Unavailable [phone] Paula Reza MD Unavailable Unavailable Esha Dewitt MD Unavailable [phone] Valdo Escamilla PA-C Unavailable [phone] Nohelia Abarca PA-C Unavailable [phone] Heather Mosquera MD Unavailable [phone] Fawad York MD Unavailable [phone] Reason for Visit * Reason Onset Date Comments MyChart Communication 04/17/[address] ress test Encounter Details Date Type Department Care Team (Late st Contact Info) Description 04/17/2012 MyC Medical Advice [address], [address] [place] [address] Mingo Aldana MD [facility] [address] [place] [address] MyChart Communication (nuclear stress test) Social History [...] AM CDT 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 Gender Identity Male 09/20/2020 8:37 AM CDT Sexual Orientation Straight 09/20/2020 8: 37 AM CDT documented as of this encounter Plan of Treatment Not on file documented as of this encounter Visit Diagnoses Not on filedocumented in this encounter Additional Health Concerns Infection Onset Date Last Indicated Resolved Time Rule Out COVID-19 02/15/2020 02/15/2020 02/16/2020 2:32 PM PLANER MILL GRADER Rule Out COVID-19 01/05/2021 01/05/2021 01/06/2021 12:57 PM CDT ESBL 01/05/2021 01/05/2021 Rule Out COVID-19 06/30/2021 06/30/2021 07/01/2021 9:34 AM CDT Rule Out COVID-19 07/25/2021 07/25/2021 07/25/2021 8:02 PM CDT documented as of this encounter Care Teams Lining Brusher Relationship Specialty Start Date End Date Mingo Aldana MD PCP - General Family Practice 07/22/09 07/12/14 Shahida Sutton APRN DOCUMENT ANALYST PCP - General Nurse Practitioner 08/17/14 08/04/21 Shahida Sutton APRN DOCUMENT ANALYST PCP - Assigned PCP 07/12/14 05/07/18 Paula Reza MD PCP - General Internal Medicine 08/05/21 Shahida Sutton APRN DOCUMENT ANALYST Assigned PCP 07/12/14 09/30/21 Carolynn Ramon, KASIE Personal Advocate & Liaison (PAL) 12/17/18 08/07/21 [place] [address] [place] [address] Assigned Musculoskeletal Provider 12/26/19 08/21/20 Brady Lion MD Assigned Heart and Vascular Provider 12/26/19 08/14/20 Nima France PA-C [address] [place] [address] Assigned Surgical Provider 05/19/20 08/21/20 Camille Chandler PA-C [address] [place] [address] Assigned Neuroscience Provider 05/19/20 09/14/20 Anabela Barakat APRN CNP [address] [place] [address] Assigned Heart and Vascular Provider 08/15/20 08/05/21 Nima France PA-C [address] [facility] 450 [place] [address] Assigned Musculoskeletal Provider 08/22/20 11/13/20 [place] [address] [place] [address] Assigned Musculoskeletal Provider 11/14/20 12/04/20 Fawad York MD [address] [place] [address] Assigned Musculoskeletal Provider 12/05/20 02/05/21 Roopa Almonte MD [address] [facility] [address] [place] [address] Endocrinology, Diabetes, and Metabolism 01/19/21 [place] [address] [facility] [address] [place] [address] Assigned Musculoskeletal Provider 02/06/21 09/16/21 Maryse Burton PA-C [address] [place] [address] Physician Licensed Retail Supervisor Dermatology 04/14/21 Marquita Starkey MD [address] [facility] [address] [place] [address] Internal Medicine 05/06/21 05/06/21 Roopa Almonte MD [address] [facility] 200 [place] [address] Hospitalist Endocrinology, Diabetes, and Metabolism 05/30/21 Griffin Joshi MD [address] [place] [address] Cardiovascular Disease 07/25/21 Rina Magallon, RN Lead Form Worker 07/29/21 07/11/22 Griffin Joshi MD [address] [place] [address] Assigned Heart and Vascular Provider 08/06/21 10/07/21 Roopa Almonte MD [address] [facility] [address] [place], [place] [address] Assigned Endocrinology Provider 09/10/21 02/24/24 [place] [address] [facility] [place] [address] Assigned Musculoskeletal Provider 09/17/21 10/14/21 Lydia Bernstein PA-C [address] [place] [address] Assigned PCP 10/01/21 10/21/21 Rosa Maria Love [facility] Community Health Worker 10/06/21 [place] [address] [place] [address] Assigned Musculoskeletal Provider 10/15/21 04/26/23 Paula Reza MD [place] 02/02/2024 Assigned PCP 10/22/21 12/23/21 Keerthi Miner APRN DOCUMENT ANALYST [address] [place] [address] Assigned Heart and Vascular Provider 10/08/21 02/10/22 Shahida Sutton APRN DOCUMENT ANALYST Assigned PCP 12/24/21 03/24/22 Porsha Michaels APRN DOCUMENT ANALYST [address] [place] [address] Assigned Heart and Vascular Provider 02/11/22 05/12/22 Paula Reza MD [place] 02/02/2024 Assigned PCP 03/25/22 04/07/22 Shahida Sutton APRN DOCUMENT ANALYST [address] [place] [address] Assigned PCP 04/08/22 06/30/22 Daylin Ludwig, [facility] [address] [place] [address] Cardiac Rehabilitation Therapist 05/16/23 Laurel Velasquez MD [address] [place] [address] Assigned Heart and Vascular Provider 05/13/22 06/30/22 Daylin Ludwig EP [facility] [address] [place] [address] Cardiac Rehabilitation Therapist 06/08/22 06/09/23 Paula Reza MD [place] 02/02/2024 Assigned PCP 07/01/22 07/07/22 Porsha Michaels APRN DOCUMENT ANALYST [address] [place] [address] Assigned Heart and Vascular Provider 07/01/22 07/07/22 Lauerl Velasquez MD [address] [place] [address] Assigned Heart and Vascular Provider 07/08/22 08/04/22 Shahida Sutton, DIPPER OPERATOR DOCUMENT ANALYST Assigned PCP 07/08/22 09/08/22 Marilin Montaño, DOCUMENT ANALYST [address] [place] [address] Assigned Heart and Vascular Provider 08/05/22 02/24/24 Esha Dewitt MD [address] [place] [address] 36 [place], [place] [address] Gastroenterology 09/06/22 Heather Mosquera MD [address] [place] [address] Internal Medicine 09/06/22 Paula Reza MD [place] 02/02/2024 Assigned PCP 09/09/22 01/05/23 Esha Dewitt MD [address] [facility] 36 [place] [address] Assigned Gastroenterology Provider 09/23/22 04/26/24 Valdo Escamilla PA-C [address] [place] [address] Assigned Neuroscience Provider 09/30/22 04/26/24 Nohelia Abarca PA-C [address] [place] [address] Physician Licensed Retail Supervisor Gastroenterology 10/03/22 Heather Mosquera MD [address] [place] [address] Assigned PCP 01/06/23 Fawad York MD [address] [place], [place] [address] Assigned Musculoskeletal Provider 04/27/23 06/25/23 documented as of this encounter
--- OUTSIDE RECORDS SUMMARY | 2024-11-02 15:17 | XMS_ITS | Encounter Summary ---
Author Organization [facility] Address [address] [place] [address] Care Team Providers Care [facility] Name Role Phone Shahida Sutton Zoila ZEPEDA PAYROLL AND BENEFITS SPECIALIST Unavailable Un available Roopa Almonte MD Unavailable [phone] Augustine Callaway MD Unavailable Maryse BurtonC Unavailable Roopa Almonte MD Unavailable [phone] Griffin Joshi MD Unavailable Rina Magallon RN Unavailable [phone] Paula Reza MD Primary Care Provider UnavailGriffin Youssef MD Unavailable Roopa Almonte MD Unavailable [phone] Basilio Morillo DO Unavailable Lydia Bernstein PA-C Unavailable Rosa Maria Love Unavailable [phone] Augustine Callaway MD Unavailable Paula Reza MD Unavailable Unavailable Keerthi Miner APRN PAYROLL AND BENEFITS SPECIALIST Unavailable [phone] Shahida Sutton APRN PAYROLL AND BENEFITS SPECIALIST Unavailable Un available Porsha Michaels APRN PAYROLL AND BENEFITS SPECIALIST Unavailable [phone] Paula Reza MD Unavailable Unavailable Shahida Sutton APRN PAYROLL AND BENEFITS SPECIALIST Unavailable Un available Daylin Ludwig Unavailable [phone] Laurel Velasquez MD Unavailable [phone] Daylin Ludwig Unavailable [phone] Paula Reza MD Unavailable Unavailable Porsha Michaels APRN PAYROLL AND BENEFITS SPECIALIST Unavailable [phone] Laurel Velasquez MD Unavailable [phone] Shahida Sutton APRN PAYROLL AND BENEFITS SPECIALIST Unavailable Un available Marilin Montaño PAYROLL AND BENEFITS SPECIALIST Unavailable [phone] Esha Dewitt MD Unavailable [phone] Heather Mosquera MD Unavailable [phone] Paula Reza MD Unavailable Unavailable Esha Dewitt MD Unavailable [phone] Valdo Escamilla-C Unavailable +[phone] Nohelia Abarca-C Unavailable [phone] Heather Mosquera MD Unavailable [phone] Fawad York MD Unavailable [phone] Reason for Visit * Reason Comments Medication Refill Encounter Details Date Type Department Care Team (Late st Contact Info) Description 08/17/[address] [address] Shahida Sutton APRN CNP Medication Refill Social History Tobacco Use Types Packs/Day Years Used Date Smoking Tobacco: Former Cigarettes Q uit: 12/09/2006 Cigars Smokeless Tobacco: Never Alcohol Use Standard Drinks/Week Comments Not Currently 0 (1 standard drink = 0.6 oz pur e alcohol) Very Occasionally Overall Financial Resource Strain (CARDIA) aRchele r Date Recorded How hard is it [...] AM CDT 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 Gender Identity Male 09/20/2020 8:37 AM CDT [...] General Internal Medicine 08/05/21 Shahida Sutton APRN PAYROLL AND BENEFITS SPECIALIST Assigned PCP 07/12/14 09/30/21 Roopa Almonte MD [address] [facility] 200 [place] [address] Endocrinology, Diabetes, and Metabolism 01/19/21 [place] [address] [facility] 300 [place] [address] Assigned Musculoskeletal Provider 02/06/21 09/16/21 Maryse Burton PA-C [address] [place] [address] Physician Parts Manager Dermatology 04/14/21 Roopa Almonte MD [address] [facility] 200 [place] [address] Hospitalist Endocrinology, Diabetes, and Metabolism 05/30/21 Griffin Joshi MD [address] [facility]00 [place] [address] Cardiovascular Disease 07/25/21 Rina Magallon, RN Lead Assistant Womens Volleyball Coach 07/29/21 07/11/22 Griffin Joshi MD [address] [facility] [place] [address] Assigned Heart and Vascular Provider 08/06/21 10/07/21 Roopa Almonte MD [address] [facility] 200 [place], [place] [address] Assigned Endocrinology Provider 09/10/21 02/24/24 [place] [address] [facility] [place] [address]154[address] Assigned Musculoskeletal Provider 09/17/21 10/14/21 Lydia Bernstein PA-C [address] [place] [address] Assigned PCP 10/01/21 10/21/21 Rosa Maria Love CHW Community Health Worker 10/06/21 07/11/22 [place] [address] [place] [address] Assigned Musculoskeletal Provider 10/15/21 04/26/23 Paula Reza MD INACTIVE IN [place] 02/02/2024 Assigned PCP 10/22/21 12/23/21 Keerthi Miner, PAPER BAG PRESS OPERATOR PAYROLL AND BENEFITS SPECIALIST [address] [place] [address] Assigned Heart and Vascular Provider 10/08/21 02/10/22 Shahida Sutton, PAPER BAG PRESS OPERATOR PAYROLL AND BENEFITS SPECIALIST Assigned PCP 12/24/21 03/24/22 Porsha Michaels APRN PAYROLL AND BENEFITS SPECIALIST [address] [place] [address] Assigned Heart and Vascular Provider 02/11/22 05/12/22 Paula Reza MD INACTIVE IN [place] 02/02/2024 Assigned PCP 03/25/22 04/07/22 Shahida Sutton, PAPER BAG PRESS OPERATOR PAYROLL AND BENEFITS SPECIALIST [address] [place] [address] Assigned PCP 04/08/22 06/30/22 Daylin Ludwig, EP [facility] [address] [place] [address]34475 Cardiac Rehabilitation Therapist 05/16/23 Laurel Velasquez MD [address] [place] 824155 Assigned Heart and Vascular Provider 05/13/22 06/30/22 Daylin Ludwig, MIKI [facility] [address] [place] [address] Cardiac Rehabilitation Therapist 06/08/22 06/09/23 Paula Reza MD INACTIVE IN [place] 02/02/2024 Assigned PCP 07/01/22 07/07/22 Porsha Michaels APRN PAYROLL AND BENEFITS SPECIALIST [address] [place] [address] Assigned Heart and Vascular Provider 07/01/22 07/07/22 Laurel Velasquez MD [address] [place] 578395 Assigned Heart and Vascular Provider 07/08/22 08/04/22 Shahida Sutton APRN PAYROLL AND BENEFITS SPECIALIST Assigned PCP 07/08/22 09/08/22 Marilin Montaño, PAYROLL AND BENEFITS SPECIALIST [address] [address] Assigned Heart and Vascular Provider 08/05/22 02/24/24 Esha Dewitt MD [address] [place] [address] Gastroenterology 09/06/22 Heather Mosquera MD [address] [place] [address] Internal Medicine 09/06/22 Paula Reza MD INACTIVE IN [place] 02/02/2024 Assigned PCP 09/09/22 01/05/23 Esha Dewitt MD [address] [facility] 36 [place] [address] Assigned Gastroenterology Provider 09/23/22 04/26/24 Valdo Escamilla PA-C [address] [place], [place] [address] Assigned Neuroscience Provider 09/30/22 04/26/24 Nohelia Abarca PA-C [address] [place], [place] [address] Physician Parts Manager Gastroenterology 10/03/22 Heather Mosquera MD [address] [place], [place] [address] Assigned PCP 01/06/23 Fawad York MD [address] [place], [place] [address] Assigned Musculoskeletal Provider 04/27/23 06/25/23 documented as of this encounter
--- OUTSIDE RECORDS SUMMARY | 2024-11-02 15:17 | XMS_ITS | Encounter Summary ---
Author Organization [facility] Address [address] [place] [address] Care Team Providers Care Hotel Desk Clerk Name Role Phone Shahida Sutton Zoila ZEPEDA GRAVE DIGGER Unavailable Un available Roopa Almonte MD Unavailable [phone] Augustine Callaway MD Unavailable Maryse BurtonC Unavailable Roopa Almonte MD Unavailable [phone] Griffin Joshi MD Unavailable Rina Magallon RN Unavailable [phone] Paula Reza MD Primary Care Provider UnavailGriffin Youssef MD Unavailable Roopa Almonte MD Unavailable [phone] Basilio Morillo DO Unavailable Lydia Bernstein PA-C Unavailable Rosa Maria Love Unavailable [phone] Augustine Callaway MD Unavailable Paula Reza MD Unavailable Unavailable Keerthi Miner APRN GRAVE DIGGER Unavailable [phone] Herman Shahida Cummings APRN GRAVE DIGGER Unavailable Un available Porsha Michaels APRN GRAVE DIGGER Unavailable [phone] Paula Reza MD Unavailable Unavailable Shahida Sutton APRN GRAVE DIGGER Unavailable Un available Daylin Ludwig Unavailable [phone] Laurel Velasquez MD Unavailable [phone] Daylin Ludwig EP Unavailable [phone] Paula Reza MD Unavailable Unavailable Porsha Michaels APRN GRAVE DIGGER Unavailable [phone] Laurel Velasquez MD Unavailable [phone] Herman, Shahida Cummings INVESTIGATIVE ANALYST GRAVE DIGGER Unavailable Un available Marilin Montaño GRAVE DIGGER Unavailable [phone] Esha Dewitt MD Unavailable [phone] Heather Mosquera MD Unavailable [phone] Paula Reza MD Unavailable Unavailable Esha Dewitt MD Unavailable [phone] Valdo EscamillaC Unavailable [phone] Nohelia Abarca PA-C Unavailable [phone] Heather Mosquera MD Unavailable [phone] Fawad York MD Unavailable [phone] Encounter Details Date Type Department Care Team (Late st Contact Info) Description 09/08/[address] 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 Not on [...] documented as of this encounter Care Teams Hotel Desk Clerk Relationship Specialty Start Date End Date Paula Reza MD PCP - General Internal Medicine 08/05/21 Shahida Sutton APRN GRAVE DIGGER Assigned PCP 07/12/14 09/30/21 Roopa Almonte MD [address] [place] [address] Endocrinology, Diabetes, and Metabolism 01/19/21 [place] [address] [place] [address] Assigned Musculoskeletal Provider 02/06/21 09/16/21 Maryse Burton PA-C [address] [facility] [place] [address] Physician Rubber Cutter And Shape Carver Dermatology 04/14/21 Roopa Almonte MD [address] [facility] [address] [place] [address] Hospitalist Endocrinology, Diabetes, and Metabolism 05/30/21 Griffin Joshi MD [address] [place] [address] Cardiovascular Disease 07/25/21 Rina Magallon RN Lead Instrument And Controls Technician 07/29/21 07/11/22 Griffin Joshi MD [address] [place] [address] Assigned Heart and Vascular Provider 08/06/21 10/07/21 Roopa Almonte MD [address] [place] [address] 200 [place], [place] [address] Assigned Endocrinology Provider 09/10/21 02/24/24 [place] [address] [facility] [place] [address] Assigned Musculoskeletal Provider 09/17/21 10/14/21 Lydia Bernstein PA-C [address] [place] [address] Assigned PCP 10/01/21 10/21/21 Kate Rosa Maria, W Community Health Worker 10/06/21 07/11/22 [place] [address] [place] [address] Assigned Musculoskeletal Provider 10/15/21 04/26/23 Paula Reza MD INACTIVE IN [place] 02/02/2024 Assigned PCP 10/22/21 12/23/21 Keerthi Miner APRN GRAVE DIGGER [address] [place] [address] Assigned Heart and Vascular Provider 10/08/21 02/10/22 Shahida Sutton APRN GRAVE DIGGER Assigned PCP 12/24/21 03/24/22 Porsha Michaels APRN GRAVE DIGGER [address] [place] [address] Assigned Heart and Vascular Provider 02/11/22 05/12/22 Paula Reza MD [place]IVE IN [place] 02/02/2024 Assigned PCP 03/25/22 04/07/22 Shahida Sutton APRN GRAVE DIGGER [address] [place] [address] Assigned PCP 04/08/22 06/30/22 Daylin Ludwig EP [facility] [address] [place] [address] Cardiac Rehabilitation Therapist 05/16/23 Laurel Velasquez MD [address] [place] [address] Assigned Heart and Vascular Provider 05/13/22 06/30/22 Daylin Ludwig EP [facility] [address] [place] [address] Cardiac Rehabilitation Therapist 06/08/22 06/09/23 Paula Reza MD [place]NACTIVE IN [place] 02/02/2024 Assigned PCP 07/01/22 07/07/22 Porsha Michaels APRN GRAVE DIGGER [address] [place] [address] Assigned Heart and Vascular Provider 07/01/22 07/07/22 Laurel Velasquez MD [address] [place] [address] Assigned Heart and Vascular Provider 07/08/22 08/04/22 Shahida Sutton APRN GRAVE DIGGER Assigned PCP 07/08/22 09/08/22 Marilin Montaño, GRAVE DIGGER [address] [place] [address] Assigned Heart and Vascular Provider 08/05/22 02/24/24 Esha Dewitt MD [address] [place] [address] 36 [place], [place] [address] Gastroenterology 09/06/22 Heather Mosquera MD [address] [place], [place] [address] Internal Medicine 09/06/22 Paula Reza MD [place]NACTIVE IN [place] 02/02/2024 Assigned PCP 09/09/22 01/05/23 Esha Dewitt MD 420 [facility] 36 [place] [address] Assigned Gastroenterology Provider 09/23/22 04/26/24 Valdo Escamilla PA-C [address] [place] [address] Assigned Neuroscience Provider 09/30/22 04/26/24 Nohelia Abarca PA-C [address] [place] [address] Physician Rubber Cutter And Shape Carver Gastroenterology 10/03/22 Heather Mosquera MD [address] [place] [address] Assigned PCP 01/06/23 Fawad York MD 9[address] [place], [place] [address] Assigned Musculoskeletal Provider 04/27/23 06/25/23 documented as of this encounter
--- OUTSIDE RECORDS SUMMARY | 2024-11-02 15:17 | XMS_ITS | Encounter Summary ---
Author Organization [facility] Address [address] [place] [address] Care Team Providers Care Tank Hoop Bender Name Role Phone Shahida Sutton LIVESTOCK CARETAKER ACUTE CARE NURSING ASSISTANT Primary Care Provi ford Unavailable Shahida Sutton APRN ACUTE CARE NURSING ASSISTANT Unavailable Un available Carolynn Ramon RN Unavailable [phone] Anabela Barakat APRN ACUTE CARE NURSING ASSISTANT Unavailable Roopa Almonte MD Unavailable [phone] Augustine Callaway MD Unavailable Maryse Burton PA-C Unavailable [phone] Roopa Almonte MD Unavailable [phone] Griffin Joshi MD Unavailable Rina Magallon RN Unavailable [phone] Paula Reza MD Primary Care Provider UnavailGriffin Youssef MD Unavailable Roopa Almonte MD Unavailable [phone] Basilio Morillo DO Unavailable Lydia Bersntein PA-C Unavailable Rosa Maria Love Unavailable Augustine Callaway MD Unavailable Paula Reza MD Unavailable Unavailable Kristofer Keerthi Taylor ZEPEDA ACUTE CARE NURSING ASSISTANT Unavailable [phone] HermanShahida huerta LIVESTOCK CARETAKER ACUTE CARE NURSING ASSISTANT Unavailable Un available Porsha Michaels APRN ACUTE CARE NURSING ASSISTANT Unavailable [phone] Paula Reza MD Unavailable Unavailable Herman, Shahida Cummings APRN ACUTE CARE NURSING ASSISTANT Unavailable Un available Daylin Ludwig Unavailable [phone] Laurel Velasquez MD Unavailable Daylin Ludwig EP Unavailable [phone] Paula Reza MD Unavailable Unavailable Porsha Michaels APRN ACUTE CARE NURSING ASSISTANT Unavailable [phone] Laurel Velasquez MD Unavailable Herman, Shahida Cummings APRN ACUTE CARE NURSING ASSISTANT Unavailable Un available Marilin Montaño ACUTE CARE NURSING ASSISTANT Unavailable Esha Dewitt MD Unavailable [phone] Heather Mosquera MD Unavailable [phone] Paula Reza MD Unavailable Unavailable Esha Dewitt MD Unavailable [phone] Valdo Escamilla PA-C Unavailable [phone] Nohelia Abarca PA-C Unavailable [phone] Heather Mosquera MD Unavailable [phone] Fawad York MD Unavailable [phone] Encounter Details Date Type Department Care Team (Late st Contact Info) Description 05/27/2021 [facility] [address] [place] [phone] Jessica Ramires, RN Social History Tobacco Use Types Packs/Day [...] AM CDT Legal Sex Male 3:40 AM ORDER SELECTOR Gender Identity Male 09/20/2020 8:37 AM CDT Sexual Orientation Straight 09/20/2020 8: 37 AM CDT 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 No / Unsure 05/03/2021 9:00 AM ORDER SELECTOR documented as of this encounter Plan of [...] documented as of this encounter Care Teams Tank Hoop Bender Relationship Specialty Start Date End Date Shahida Sutton APRN ACUTE CARE NURSING ASSISTANT PCP - General Nurse Practitioner 08/17/14 08/04/21 Paula Reza MD PCP - General Internal Medicine 08/05/21 Shahida Sutton APRN ACUTE CARE NURSING ASSISTANT Assigned PCP 07/12/14 09/30/21 Carolynn Ramon RN Personal Advocate & Liaison (PAL) 12/17/18 08/07/21 Anabela Barakat APRN ACUTE CARE NURSING ASSISTANT [facility]1 [place] [address] Assigned Heart and Vascular Provider 08/15/20 08/05/21 Roopa Almonte MD [address] [facility] 200 [place] [address] Endocrinology, Diabetes, and Metabolism 01/19/21 [place] [address] [facility] 300 [place] [address] Assigned Musculoskeletal Provider 02/06/21 09/16/21 Maryse Burton PA-C [address] [place] [address] Physician Ladderman Dermatology 04/14/21 Roopa Almonte MD [address] [facility] [address] [address] Hospitalist Endocrinology, Diabetes, and Metabolism 05/30/21 Griffin Joshi MD [address] [facility] [address] [place] [address] Cardiovascular Disease 07/25/21 Rina Magallon, RN Lead Flight Kitchen Manager 07/29/21 07/11/22 Griffin Joshi MD [address] [facility] [address] [place] [address] Assigned Heart and Vascular Provider 08/06/21 10/07/21 Roopa Almonte MD [address] [facility] 200 [place] [address] Assigned Endocrinology Provider 09/10/21 02/24/24 Basilio Morillo, [address] [facility] [place] [address] Assigned Musculoskeletal Provider 09/17/21 10/14/21 Lydia Bernstein, TRACEY [address] [place], [place] [address] Assigned PCP 10/01/21 10/21/21 Rosa Maria Love CHW Community Health Worker 10/06/21 07/11/22 [place] [address] [place] [address] Assigned Musculoskeletal Provider 10/15/21 04/26/23 Paula Reza MD INACTIVE IN [place] 02/02/2024 Assigned PCP 10/22/21 12/23/21 Keerthi Miner APRN ACUTE CARE NURSING ASSISTANT [address] [place] [address] Assigned Heart and Vascular Provider 10/08/21 02/10/22 Shahida Sutton APRN ACUTE CARE NURSING ASSISTANT Assigned PCP 12/24/21 03/24/22 Porsha Michaels APRN ACUTE CARE NURSING ASSISTANT [address] [place] [address] Assigned Heart and Vascular Provider 02/11/22 05/12/22 Paula Reza MD INACTIVE IN [place] 02/02/2024 Assigned PCP 03/25/22 04/07/22 Shahida Sutton APRN ACUTE CARE NURSING ASSISTANT [address] [place] [address] Assigned PCP 04/08/22 06/30/22 Daylin Ludwig, MIKI [facility] [address] [place] [address] Cardiac Rehabilitation Therapist 05/16/23 Laurel Velasquez MD [address] [place] [address] Assigned Heart and Vascular Provider 05/13/22 06/30/22 Daylin Ludwig, MIKI [facility] [address] [place] [address] Cardiac Rehabilitation Therapist 06/08/22 06/09/23 Paula Reza MD INACTIVE IN [place] 02/02/2024 Assigned PCP 07/01/22 07/07/22 Porsha Michaels APRN ACUTE CARE NURSING ASSISTANT [address] [place] [address] Assigned Heart and Vascular Provider 07/01/22 07/07/22 Laurel Velasquez MD [address] [place] [address] Assigned Heart and Vascular Provider 07/08/22 08/04/22 Shahida Sutton APRN ACUTE CARE NURSING ASSISTANT Assigned PCP 07/08/22 09/08/22 Marilin Montaño, ACUTE CARE NURSING ASSISTANT [address] [place] [address] Assigned Heart and Vascular Provider 08/05/22 02/24/24 Esha Dewitt MD 420 [facility] 36 [place] [address] Gastroenterology 09/06/22 Heather Mosquera MD [address] [place] [address] Internal Medicine 09/06/22 Paula Reza MD INACTIVE IN [place] 02/02/2024 Assigned PCP 09/09/22 01/05/23 Esha Dewitt MD 420 [facility] 36 [place] [address] Assigned Gastroenterology Provider 09/23/22 04/26/24 Valdo Escamilla PA-C [address] [place] [address] Assigned Neuroscience Provider 09/30/22 04/26/24 Nohelia Abarca PA-C [address] [place] [address] Physician Ladderman Gastroenterology 10/03/22 Heather Mosquera MD [address] [place] [address] Assigned PCP 01/06/23 Fawad York MD [address] [place] [address] Assigned Musculoskeletal Provider 04/27/23 06/25/23 documented as of this encounter
--- OUTSIDE RECORDS SUMMARY | 2024-11-02 15:17 | XMS_ITS | Encounter Summary ---
Author Organization [place] Address [address] [place] [address] Care Team Providers Care Aircraft Powerplant Repairer Name Role Phone Shahida Sutton APRN GREENSKEEPER Unavailable Un available Roopa Almonte MD Unavailable [phone] Maryse BurtonC Unavailable Roopa Almonte MD Unavailable [phone] Griffin Joshi MD Unavailable Rina Magallon RN Unavailable [phone] Paula Reza MD Primary Care Provider Unavailabl Griffin Johnson MD Unavailable Roopa Almonte MD Unavailable [phone] Basilio Morillo DO Unavailable Lydia Bernstein PA-C Unavailable Rosa Maria Love Unavailable [phone] Augustine Callaway MD Unavailable Paula Reza MD Unavailable Unavailable Keerthi Miner APRN GREENSKEEPER Unavailable Shahida Sutton APRN GREENSKEEPER Unavailable Un available Porsha Michaels APRN GREENSKEEPER Unavailable [phone] Paula Reza MD Unavailable Unavailable Shahida Sutton APRN GREENSKEEPER Unavailable Un available Daylin Ludwig Unavailable [phone] Laurel Velasquez MD Unavailable [phone] Daylin Ludwig Unavailable [phone] Paula Reza MD Unavailable Unavailable Porsha Michaels APRN GREENSKEEPER Unavailable [phone] Laurel Velasquez MD Unavailable [phone] Shahida Sutton APRN GREENSKEEPER Unavailable Un available Marilin Montaño GREENSKEEPER Unavailable [phone] Esha Dewitt MD Unavailable [phone] Heather Mosquera MD Unavailable [phone] Paula Reza MD Unavailable Unavailable Esha Dewitt MD Unavailable [phone] Valdo Escamilla PA-C Unavailable [phone] Nohelia Abarca PA-C Unavailable [phone] Heather Mosquera MD Unavailable [phone] Fawad York MD Unavailable [phone] Encounter Details Date Type Department Care Team (Late st Contact Info) Description 09/29/2021 MyC Medical Advice [facility] [place] [address] [facility] [address] [place] [address] Basilio Morillo, [address] [facility]ly [facility] [place] [id number] Social History Tobacco Use Types Packs/Day Years [...] CDT Legal Sex Male 3:40 AM JAVA GROOVY DEVELOPER Gender Identity Male 09/20/2020 8:37 AM CDT [...] as of this encounter Care Teams Aircraft Powerplant Repairer Relationship Specialty Start Date End Date Paula Reza MD PCP - General Internal Medicine 08/05/21 Shahida Sutton APRN GREENSKEEPER Assigned PCP 07/12/14 09/30/21 Roopa Almonte MD [address] [facility] 200 [place], [place] [address] Endocrinology, Diabetes, and Metabolism 01/19/21 Maryse Burton PA-C [address] [place] [address] Physician Maintenance Manager Dermatology 04/14/21 Roopa Almonte MD [address] [facility] 200 [place], [place] [address] Hospitalist Endocrinology, Diabetes, and Metabolism 05/30/21 Griffin Joshi MD [address] [facility] [address] [place] [address] Cardiovascular Disease 07/25/21 Rina Magallon, RN Lead Account Executive Key Accounts 07/29/21 07/11/22 Griffin Joshi MD [address] [place] [address] Assigned Heart and Vascular Provider 08/06/21 10/07/21 Roopa Almonte MD [address] [place], [place] [address] Assigned Endocrinology Provider 09/10/21 02/24/24 [place] [address] [facility] [place], [place] [address] Assigned Musculoskeletal Provider 09/17/21 10/14/21 Lydia Bernstein PA-C [address] [place] [address] Assigned PCP 10/01/21 10/21/21 Rosa Maria Love [facility] Community Health Worker 10/06/21 07/11/22 [place] [address] [facility] [address] [place], [place] [address] Assigned Musculoskeletal Provider 10/15/21 04/26/23 Paula Reza MD [place] 02/02/2024 Assigned PCP 10/22/21 12/23/21 Keerthi Miner APRN GREENSKEEPER [address] [place] [address] Assigned Heart and Vascular Provider 10/08/21 02/10/22 Shahida Sutton APRN GREENSKEEPER Assigned PCP 12/24/21 03/24/22 Porsha Michaels, DUANE GREENSKEEPER [address] [place] [address] Assigned Heart and Vascular Provider 02/11/22 05/12/22 Paula Reza MD [place] 02/02/2024 Assigned PCP 03/25/22 04/07/22 Herman Shahidaprincess Cummings, OSCILLOGRAPH TECHNICIAN GREENSKEEPER [address] [place] [address] Assigned PCP 04/08/22 06/30/22 Daylin Ludwig, [facility] [address] [place] [address] Cardiac Rehabilitation Therapist 05/16/23 Laurel Velasquez MD [address] [place] [address] Assigned Heart and Vascular Provider 05/13/22 06/30/22 Daylin Ludwig, [facility] [address] [place] [address] Cardiac Rehabilitation Therapist 06/08/22 06/09/23 Paula Reza MD [place] 02/02/2024 Assigned PCP 07/01/22 07/07/22 Porsha Michaels APRN GREENSKEEPER [address] [place] [address] Assigned Heart and Vascular Provider 07/01/22 07/07/22 Laurel Velasquez MD [address] [place] [address] Assigned Heart and Vascular Provider 07/08/22 08/04/22 Shahida Sutton APRN GREENSKEEPER Assigned PCP 07/08/22 09/08/22 Marilin Montaño, GREENSKEEPER [address] [place] [address] Assigned Heart and Vascular Provider 08/05/22 02/24/24 Esha Dewitt MD [address] [facility] 36 [place], [place] [address] Gastroenterology 09/06/22 Heather Mosquera MD [address] [place] [address] Internal Medicine 09/06/22 Paula Reza MD [place] 02/02/2024 Assigned PCP 09/09/22 01/05/23 Esha Dewitt MD [address] [address] Assigned Gastroenterology Provider 09/23/22 04/26/24 Valdo Escamilla PA-C [address] [place] [address] Assigned Neuroscience Provider 09/30/22 04/26/24 Nohelia Abarca PA-C [address] [place] [address] Physician Maintenance Manager Gastroenterology 10/03/22 Heather Mosquera MD [address] [facility] 150 [place], [place] [address] Assigned PCP 01/06/23 Fawad York MD [address] [place], [place] [address] Assigned Musculoskeletal Provider 04/27/23 06/25/23 documented as of this encounter
--- OUTSIDE RECORDS SUMMARY | 2024-11-02 15:17 | XMS_ITS | Encounter Summary ---
Author Organization [place] Address [address] [place] [address] Care Team Providers Care Lard Refiner Name Role Phone HermanShahida huerta APRN ON AIR PERSONALITY Primary Care Provi ford Unavailable Herman, Shahida Cummings APRN ON AIR PERSONALITY Unavailable Un available Herman, Shahida Cummings APRN ON AIR PERSONALITY Unavailable Un available Carolynn Ramon RN Unavailable [phone] Augustine Callaway MD Unavailable Brady Lion MD Unavailable Un available Nima France PA-C Unavailable [phone] Camille Chandler PA-C Unavailable [phone] Anabela Barakat APRN ON AIR PERSONALITY Unavailable Nima France PA-C Unavailable [phone] Basilio Morillo DO Unavailable Fawad York MD Unavailable [phone] Roopa Almonte MD Unavailable [phone] Augustine Callaway MD Unavailable Maryse Burton PA-C Unavailable [phone] Marquita Starkey MD Unavailable [phone] Roopa Almonte MD Unavailable [phone] Griffin Joshi MD Unavailable Rina Magallon RN Unavailable [phone] Paula Reza MD Primary Care Provider UnavailGriffin Youssef MD Unavailable Roopa Almonte MD Unavailable [phone] [facility] Unavailable Lydia Bernstein-C Unavailable Rosa Maria Love Unavailable [phone] Augustine Callaway MD Unavailable Paula Reza MD Unavailable Unavailable Keerthi Miner APRN ON AIR PERSONALITY Unavailable [phone] Herman, Shahida Cummings APRN ON AIR PERSONALITY Unavailable Un available Porsha Michaels APRN ON AIR PERSONALITY Unavailable [phone] Paula Reza MD Unavailable Unavailable HermanShahida APRN ON AIR PERSONALITY Unavailable Un available Daylin Ludwig Unavailable [phone] Laurel Velasquez MD Unavailable [phone] Daylin Ludwig Unavailable [phone] Paula Reza MD Unavailable Unavailable Porsha Michaels APRN ON AIR PERSONALITY Unavailable [phone] Laurel Velasquez MD Unavailable [phone] HermanShahida huerta APRN ON AIR PERSONALITY Unavailable Un available Marilin Montaño ON AIR PERSONALITY Unavailable [phone] Esha Dewitt MD Unavailable [phone] Heather Mosquera MD Unavailable [phone] Paula Reza MD Unavailable Unavailable Esha Dewitt MD Unavailable [phone] Valdo Escamilla PA-C Unavailable Nohelia Abarca PA-C Unavailable [phone] Heather Mosquera MD Unavailable Fawad York MD Unavailable [phone] Reason for Visit * Reason Onset Date Comments Refill Request 03/26/2017 Encounter Details Date Type Department Care Team (Late st Contact Info) Description 03/26/2017 MyC Refill [address] [address] Shahida Sutton APRN ON AIR PERSONALITY Refill Request Social History Tobacco Use Types Packs/Day Years Used Date Smoking Tobacco: Former Cigarettes Q uit: 12/09/2006 Cigars Smokeless Tobacco: Never Alcohol Use Standard Drinks/Week Comments Yes 0 (1 standard drink = 0.6 oz pur e alcohol) Very Occasionally Sex and Gender Information Value Date Recorded Sex Assigned at Male 09/20/2020 8:37 AM CDT Legal Sex Male 3:40 AM CLINICAL SPECIALTY REP Gender Identity Male 09/20/2020 8:37 AM CDT Sexual Orientation Straight 09/20/2020 8: 37 AM CDT 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 ICAL SPECIALTY REP * Telephone Encounter - Judith Green RN - 03/28/2017 8:16 AM CST Disp Refills Start End TRISTON cyclobenzaprine (FLEXERIL) 10 MG tablet 60 tablet 0 01/15/2017 No Sig: TAKE 1 TABLET(10 MG) BY MOUTH THREE TIMES DAILY NEEDED FOR MUSCLE SPASMS Last OV: 03.02.17 ICAL SPECIALTY REP * Telephone Encounter - Judith Green RN - 03/28/2017 8:15 AM CSTMessage from MyChart: Original authorizing provider: DUANE Payton CNP would like a refill of the following medications: cyclobenzaprine (FLEXERIL) 10 MG tablet [Shahida Sutton APRN CNP] Preferred pharmacy: [facility] [address] [place] [address] AT [facility] [address] Comment: ICAL SPECIALTY REP documented in this encounter Plan of Treatment Not on file documented as of this encounter Visit Diagnoses Diagnosis Cervicalgia Radicular pain in right arm Neuralgia, neuritis, and radiculitis, unspecified documented in this encounter Additional Health Concerns Infection Onset Date Last Indicated Resolved Time Rule Out COVID-19 02/15/2020 02/15/2020 02/16/2020 2:32 PM CLINICAL SPECIALTY REP Rule Out COVID-19 01/05/2021 01/05/2021 01/06/2021 12:57 PM CDT ESBL 01/05/2021 01/05/2021 Rule Out COVID-19 06/30/2021 06/30/2021 07/01/2021 9:34 AM CDT Rule Out COVID-19 07/25/2021 07/25/2021 07/25/2021 8:02 PM CDT Assessment Noted Time PHQ-9 Depression Total Score: 6 02/03/20 17 10:57 AM CLINICAL SPECIALTY REP documented as of this encounter Care Teams Lard Refiner Relationship Specialty Start Date End Date Shahida Sutton APRN CNP PCP - General Nurse Practitioner 08/17/14 08/04/21 Shahida Sutton APRN CNP PCP - Assigned PCP 07/12/14 05/07/18 Paula Reza MD PCP - General Internal Medicine 08/05/21 Shahida Sutton APRN ON AIR PERSONALITY Assigned PCP 07/12/14 09/30/21 Carolynn Ramon RN Personal Advocate & Liaison (PAL) 12/17/18 08/07/21 [place] [address] [place] [address] Assigned Musculoskeletal Provider 12/26/19 08/21/20 Brady Lion MD Assigned Heart and Vascular Provider 12/26/19 08/14/20 Nima France PA-C [address] [facility] [address] [place] [address] Assigned Surgical Provider 05/19/20 08/21/20 Camille Chandler PA-C [address] [facility] [address] [place] [address] Assigned Neuroscience Provider 05/19/20 09/14/20 Anabela Barakat APRN ON AIR PERSONALITY [address] [place] [address] Assigned Heart and Vascular Provider 08/15/20 08/05/21 Nima France PA-C [address] [place] [address] Assigned Musculoskeletal Provider 08/22/20 11/13/20 [place] [address] [facility] [place] [address] Assigned Musculoskeletal Provider 11/14/20 12/04/20 Fawad York MD [address] [place] [address] Assigned Musculoskeletal Provider 12/05/20 02/05/21 Roopa Almonte MD [address] [facility] 200 [place] [address] Endocrinology, Diabetes, and Metabolism 01/19/21 [place] [address] [facility] 300 [place] [address] Assigned Musculoskeletal Provider 02/06/21 09/16/21 Maryse Burton PA-C [address] [place] [address] Physician Malt House Kiln Operator Dermatology 04/14/21 Marquita Starkey MD [address] [facility] 200 [place] [address] Internal Medicine 05/06/21 05/06/21 Roopa Almonte MD [address] [facility] 200 [place] [address] Hospitalist Endocrinology, Diabetes, and Metabolism 05/30/21 Griffin Joshi MD 6[address] [facility] [address] [place] [address] Cardiovascular Disease 07/25/21 Rina Magallon, RN Lead Produce Clerk 07/29/21 07/11/22 Griffin Joshi MD [address] [place] [address] Assigned Heart and Vascular Provider 08/06/21 10/07/21 Roopa Almonte MD [address] [place], [place] [address] Assigned Endocrinology Provider 09/10/21 02/24/24 [place] [address] [facility] [place], [place] [address] Assigned Musculoskeletal Provider 09/17/21 10/14/21 Lydia Bernstein PA-C [address] [place] [address] Assigned PCP 10/01/21 10/21/21 Rosa Marai Love [facility] Community Health Worker 10/06/21 07/11/22 [place] [address] [facility] [address] [place], [place] [address] Assigned Musculoskeletal Provider 10/15/21 04/26/23 Paula Reza MD INACTIVE IN [place] 02/02/2024 Assigned PCP 10/22/21 12/23/21 Keerthi Miner APRN ON AIR PERSONALITY [address] [place] [address] Assigned Heart and Vascular Provider 10/08/21 02/10/22 Shahida Sutton APRN ON AIR PERSONALITY Assigned PCP 12/24/21 03/24/22 Porsha Michaels APRN ON AIR PERSONALITY [address] [place] [address] Assigned Heart and Vascular Provider 02/11/22 05/12/22 Paula Reza MD [place]IVE IN [place] 02/02/2024 Assigned PCP 03/25/22 04/07/22 Shahida Sutton, RUBBER BALL FINISHER ON AIR PERSONALITY [address] [place] [address] Assigned PCP 04/08/22 06/30/22 Daylin Ludwig, [facility] [address] [place] [address] Cardiac Rehabilitation Therapist 05/16/23 Laurel Velasquez MD [address] [place] [address] Assigned Heart and Vascular Provider 05/13/22 06/30/22 Daylin Ludwig, [facility] [address] [place] [address] Cardiac Rehabilitation Therapist 06/08/22 06/09/23 Paula Reza MD INACTIVE IN [place] 02/02/2024 Assigned PCP 07/01/22 07/07/22 Porsha Michaels APRN ON AIR PERSONALITY [address] [place] [address] Assigned Heart and Vascular Provider 07/01/22 07/07/22 Laurel Velasquez MD [address] [place] [address] Assigned Heart and Vascular Provider 07/08/22 08/04/22 Shahida Sutton APRN ON AIR PERSONALITY Assigned PCP 07/08/22 09/08/22 Marilin Montaño, ON AIR PERSONALITY [address] [place] [address] Assigned Heart and Vascular Provider 08/05/22 02/24/24 Esha Dewitt MD 420 [facility] 36 [place], [place] [address] Gastroenterology 09/06/22 Heather Mosquera MD [address] [place] [address] Internal Medicine 09/06/22 Paula Reza MD INACTIVE IN [place] 02/02/2024 Assigned PCP 09/09/22 01/05/23 Esha Dewitt MD [address] [place] [address] Assigned Gastroenterology Provider 09/23/22 04/26/24 Valdo Escamilla PA-C [address] [place] [address] Assigned Neuroscience Provider 09/30/22 04/26/24 Nohelia Abarca PA-C [address] [place] [address] Physician Malt House Kiln Operator Gastroenterology 10/03/22 Heather Mosquera MD [address] [facility] 150 [place], [place] [address] Assigned PCP 01/06/23 Fawad York MD [address] [place], [place] [address] Assigned Musculoskeletal Provider 04/27/23 06/25/23 documented as of this encounter
--- OUTSIDE RECORDS SUMMARY | 2024-11-02 15:17 | XMS_ITS | Encounter Summary ---
Author Organization [place] Address [address] [place] [address] Care Team Providers Care Global Account Director Name Role Phone Shahida Sutton HEAD WORKER TRAY LINE SUPERVISOR Primary Care Provi ford Unavailable Shahida Sutton APRN TRAY LINE SUPERVISOR Unavailable Un available Carolynn Ramon RN Unavailable [phone] Anabela Barakat APRN TRAY LINE SUPERVISOR Unavailable Roopa Almonte MD Unavailable [phone] Augustine Callaway MD Unavailable Maryse Burton PA-C Unavailable [phone] Roopa Almonte MD Unavailable [phone] Griffin Joshi MD Unavailable Rina Magallon RN Unavailable [phone] Paula Reza MD Primary Care Provider UnavailGriffin Youssef MD Unavailable Roopa Almonte MD Unavailable [phone] Basilio Morillo DO Unavailable Lydia Bernstein PA-C Unavailable Rosa Maria Love Unavailable [phone] Augustine Callaway MD Unavailable Paula Reza MD Unavailable Unavailable Kristofer Keerthi Taylor ZEPEDA TRAY LINE SUPERVISOR Unavailable HermanShahida huerta HEAD WORKER TRAY LINE SUPERVISOR Unavailable Un available Porsha Michaels APRN TRAY LINE SUPERVISOR Unavailable [phone] Paula Reza MD Unavailable Unavailable Herman, Shahida Cummings APRN TRAY LINE SUPERVISOR Unavailable Un available Daylin Ludwig Unavailable [phone] Laurel Velasquez MD Unavailable Daylin Ludiwg Unavailable [phone] Paula Reza MD Unavailable Unavailable Porsha Michaels APRN TRAY LINE SUPERVISOR Unavailable [phone] Laurel Velasquez MD Unavailable Herman, Shahida Cummings APRN TRAY LINE SUPERVISOR Unavailable Un available Marilin Montaño TRAY LINE SUPERVISOR Unavailable Esha Dewitt MD Unavailable [phone] Heather Mosquera MD Unavailable [phone] Paula Reza MD Unavailable Unavailable Esha Dewitt MD Unavailable [phone] Valdo Escamilla PA-C Unavailable [phone] Nohelia Abarca PA-C Unavailable [phone] Heather Mosquera MD Unavailable [phone] Fawad York MD Unavailable [phone] Encounter Details Date Type Department Care Team (Late st Contact Info) Description 05/24/2021 [facility] Medical [address] [address] Mary Kay Cruz MA Social History Tobacco Use Types Packs/Day [...] AM CDT Legal 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 No / Unsure 05/03/2021 9:00 AM TEACHER HEARING IMPAIRED documented as of this encounter Plan of [...] of this encounter Care Teams Global Account Director Relationship Specialty Start Date End Date Shahida Sutton APRN TRAY LINE SUPERVISOR PCP - General Nurse Practitioner 08/17/14 08/04/21 Paula Reza MD PCP - General Internal Medicine 08/05/21 Shahida Sutton APRN TRAY LINE SUPERVISOR Assigned PCP 07/12/14 09/30/21 Carolynn Ramon RN Personal Advocate & Liaison (PAL) 12/17/18 08/07/21 Anabela Barakat APRN TRAY LINE SUPERVISOR [facility]8 [place] [address] Assigned Heart and Vascular Provider 08/15/20 08/05/21 Roopa Almonte MD [address] [place] [address] [address] Endocrinology, Diabetes, and Metabolism 01/19/21 [place] [address] [facility] 300 [place] [address] Assigned Musculoskeletal Provider 02/06/21 09/16/21 Maryse Burton PA-C [address]200 [place] [address] Physician Anchor Operator Dermatology 04/14/21 Roopa Almonte MD [address] [place] [address] [address] Hospitalist Endocrinology, Diabetes, and Metabolism 05/30/21 Griffin Joshi MD [address] [facility] [address] [place] [address] Cardiovascular Disease 07/25/21 Rina Magallon, RN Lead Dentofacial Orthopedics Dentist 07/29/21 07/11/22 Griffin Joshi MD [address] [facility] [address] [place] [address] Assigned Heart and Vascular Provider 08/06/21 10/07/21 Roopa Almonte MD [address] [facility] 200 [place] [address] Assigned Endocrinology Provider 09/10/21 02/24/24 [place] [address] [facility] [place] [address] Assigned Musculoskeletal Provider 09/17/21 10/14/21 Lydia Bernstein, TRACEY [address] [place] [address] Assigned PCP 10/01/21 10/21/21 Rosa Maria Love Cristina Community Health Worker 10/06/21 07/11/22 [place] [address] [place] [address] Assigned Musculoskeletal Provider 10/15/21 04/26/23 Paula Reza MD INACTIVE IN [place] 02/02/2024 Assigned PCP 10/22/21 12/23/21 Keerthi Miner APRN TRAY LINE SUPERVISOR [address] [place] [address] Assigned Heart and Vascular Provider 10/08/21 02/10/22 Shahida Sutton APRN TRAY LINE SUPERVISOR Assigned PCP 12/24/21 03/24/22 Porsha Michaels APRN TRAY LINE SUPERVISOR [address] [place] [address] Assigned Heart and Vascular Provider 02/11/22 05/12/22 Paula Reza MD INACTIVE IN [place] 02/02/2024 Assigned PCP 03/25/22 04/07/22 Shahida Sutton APRN TRAY LINE SUPERVISOR [address] [place] [address] Assigned PCP 04/08/22 06/30/22 Daylin Ludwig, [facility] [address] [place] [address] Cardiac Rehabilitation Therapist 05/16/23 Laurel Velasquez MD [address] [place] [address] Assigned Heart and Vascular Provider 05/13/22 06/30/22 Daylin Ludwig, [facility] [address] [place] [address] Cardiac Rehabilitation Therapist 06/08/22 06/09/23 Paula Reza MD [place] IN [place] 02/02/2024 Assigned PCP 07/01/22 07/07/22 Porsha Michaels APRN TRAY LINE SUPERVISOR [address] [place] [address] Assigned Heart and Vascular Provider 07/01/22 07/07/22 Laurel Velasquez MD [address] [place] [address] Assigned Heart and Vascular Provider 07/08/22 08/04/22 Shahida Sutton APRN TRAY LINE SUPERVISOR Assigned PCP 07/08/22 09/08/22 Marilin Montaño, TRAY LINE SUPERVISOR [address] [place] [address] Assigned Heart and Vascular Provider 08/05/22 02/24/24 Esha Dewitt MD 420 [facility] 36 [place] [address] Gastroenterology 09/06/22 Heather Mosquera MD [address] [place] [address] Internal Medicine 09/06/22 Paula Reza MD [place] IN [place] 02/02/2024 Assigned PCP 09/09/22 01/05/23 Esha Dewitt MD 420 [facility] 36 [place] [address] Assigned Gastroenterology Provider 09/23/22 04/26/24 Valdo Escamilla PA-C [address] [place] [address] Assigned Neuroscience Provider 09/30/22 04/26/24 Nohelia Abarca PA-C [address] [place] [address] Physician Anchor Operator Gastroenterology 10/03/22 Heather Mosquera MD [address] [place] [address] Assigned PCP 01/06/23 Fawad York MD [address] [place] [address] Assigned Musculoskeletal Provider 04/27/23 06/25/23 documented as of this encounter
--- OUTSIDE RECORDS SUMMARY | 2024-11-02 15:17 | XMS_ITS | Encounter Summary ---
Author Organization [place] Address [address] [place] [address] Care Team Providers Care Food Counter Attendant Name Role Phone Mingo Aldana MD Primary Car e Provider HermanShahida APRN WOOD CHOPPER Primary Care Provi ford Unavailable Herman, Shahida Cummings APRN WOOD CHOPPER Unavailable Un available Herman, Shahida Cummings APRN WOOD CHOPPER Unavailable Un available Carolynn Ramon RN Unavailable [phone] Augustine Callaway MD Unavailable Brady Lion MD Unavailable Un available Nima FranceC Unavailable [phone] Camille Chandler-C Unavailable [phone] Anabela Barakat APRN WOOD CHOPPER Unavailable Nima FranceC Unavailable [phone] Basilio Morillo DO Unavailable [phone] Fawad York MD Unavailable [phone] Roopa Almonte MD Unavailable [phone] Augustine Callaway MD Unavailable Maryse Burton PA-C Unavailable [phone] Marquita Starkey MD Unavailable [phone] Roopa Almonte MD Unavailable [phone] Griffin Joshi MD Unavailable Rina Magallon RN Unavailable [phone] Paula Reza MD Primary Care Provider UnavailGriffin Youssef MD Unavailable Roopa Almonte MD Unavailable [phone] [facility] Bas[facility] Naik Unavailable Lydia Bernstein PA-C Unavailable Rosa Maria Love Unavailable [phone] Augustine Callaway MD Unavailable Paula Reza MD Unavailable Unavailable Keerthi Miner APRN WOOD CHOPPER Unavailable [phone] Herman, Shahida Cummings APRN WOOD CHOPPER Unavailable Un available Porsha Michaels APRN WOOD CHOPPER Unavailable [phone] Paula Reza MD Unavailable Unavailable Herman, Shahida Cummings APRN WOOD CHOPPER Unavailable Un available Daylin Ludwig Unavailable [phone] Laurel Velasquez MD Unavailable [phone] Daylin Ludwig Unavailable [phone] Paula Reza MD Unavailable Unavailable Porsha Michaels APRN WOOD CHOPPER Unavailable [phone] Laurel Velasquez MD Unavailable [phone] Shahida Sutton APRN WOOD CHOPPER Unavailable Un available Marilin Montaño WOOD CHOPPER Unavailable [phone] Esha Dewitt MD Unavailable [phone] Heather Mosquera MD Unavailable [phone] Paula Reza MD Unavailable Unavailable Esha Dewitt MD Unavailable [phone] Valdo Escamilla PA-C Unavailable Nohelia Abarca PA-C Unavailable [phone] Heather Mosquera MD Unavailable [phone] Fawad York MD Unavailable Encounter Details Date Type Department Care Team (Late st Contact Info) Description 05/28/2012 [facility] [address], [address] [place] [address] [place] Social History Tobacco [...] AM CDT Legal 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 Gender Identity Male 09/20/2020 8:37 AM CDT Sexual Orientation Straight 09/20/2020 8: 37 AM CDT documented as of this encounter Plan of Treatment Not on file documented as of this encounter Visit Diagnoses Not on filedocumented in this encounter Additional Health Concerns Infection Onset Date Last Indicated Resolved Time Rule Out COVID-19 02/15/2020 02/15/2020 02/16/2020 2:32 PM LARDER COOK Rule Out COVID-19 01/05/2021 01/05/2021 01/06/2021 12:57 PM CDT ESBL 01/05/2021 01/05/2021 Rule Out COVID-19 06/30/2021 06/30/2021 07/01/2021 9:34 AM CDT Rule Out COVID-19 07/25/2021 07/25/2021 07/25/2021 8:02 PM CDT documented as of this encounter Care Teams Food Counter Attendant Relationship Specialty Start Date End Date Mingo Aldana MD PCP - General Family Practice 07/22/09 07/12/14 Shahida Sutton APRN WOOD CHOPPER PCP - General Nurse Practitioner 08/17/14 08/04/21 Shahida Sutton APRN WOOD CHOPPER PCP - Assigned PCP 07/12/14 05/07/18 Paula Reza MD PCP - General Internal Medicine 08/05/21 Shahida Sutton APRN WOOD CHOPPER Assigned PCP 07/12/14 09/30/21 Carolynn Ramon RN Personal Advocate & Liaison (PAL) 12/17/18 08/07/21 [place] [address] [place] [address] Assigned Musculoskeletal Provider 12/26/19 08/21/20 Brady Lion MD Assigned Heart and Vascular Provider 12/26/19 08/14/20 Nima France PA-C [address] [place] [address] Assigned Surgical Provider 05/19/20 08/21/20 Camille Chandler PA-C [address] [place] [address] Assigned Neuroscience Provider 05/19/20 09/14/20 Anabela Barakat APRN WOOD CHOPPER [address] [place] [address] Assigned Heart and Vascular Provider 08/15/20 08/05/21 Nima France PA-C [address] [facility] [address] [place], [place] [address] Assigned Musculoskeletal Provider 08/22/20 11/13/20 [place] [address] [facility] [address] [place], [place] [address] Assigned Musculoskeletal Provider 11/14/20 12/04/20 Fawad York MD [address] [place], [place] [address] Assigned Musculoskeletal Provider 12/05/20 02/05/21 Roopa Almonte MD [address] [employer] [facility] 200 [place] [address] Endocrinology, Diabetes, and Metabolism 01/19/21 [place] [address] [facility] 300 [place], [place] [address] Assigned Musculoskeletal Provider 02/06/21 09/16/21 Maryse Burton PA-C [address] [place] [address] Physician Bee Worker Dermatology 04/14/21 Marquita Starkey MD [address] [employer] [facility] 200 [place], [place] [address] Internal Medicine 05/06/21 05/06/21 Roopa Almonte MD [address] [facility] 200 [place] [address] Hospitalist Endocrinology, Diabetes, and Metabolism 05/30/21 Griffin Joshi MD [address] [place] [address] Cardiovascular Disease 07/25/21 Rina Magallon, RN Lead Rivet Hammer 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 07/29/21 07/11/22 Griffin Joshi MD [address] [place] [address] Assigned Heart and Vascular Provider 08/06/21 10/07/21 Roopa Almonte MD [address] [place] [address] 200 [place] [address] Assigned Endocrinology Provider 09/10/21 02/24/24 [place] [address] [facility] [place] [address] Assigned Musculoskeletal Provider 09/17/21 10/14/21 Lydia Bernstein PA-C [address] [place] [address] Assigned PCP 10/01/21 10/21/21 Rosa Maria Love CHW Community Health Worker 10/06/21 [place] [address] [place] [address] Assigned Musculoskeletal Provider 10/15/21 04/26/23 Paula Reza MD INACTIVE IN [place] 02/02/2024 Assigned PCP 10/22/21 12/23/21 Keerthi Miner BOOKMOBILE DRIVER WOOD CHOPPER [address] [place] [address] Assigned Heart and Vascular Provider 10/08/21 02/10/22 Shahida Sutton APRN WOOD CHOPPER Assigned PCP 12/24/21 03/24/22 Porsha Michaels APRN WOOD CHOPPER [address] [place] [address] Assigned Heart and Vascular Provider 02/11/22 05/12/22 Paula Reza MD [place]NACTIVE IN [place] 02/02/2024 Assigned PCP 03/25/22 04/07/22 Shahida Sutton APRN WOOD CHOPPER [address] [place] [address] Assigned PCP 04/08/22 06/30/22 Daylin Ludwig EP [facility] [address] [place] [address] Cardiac Rehabilitation Therapist 05/16/23 Laurel Velasquez MD [address] [place] [address] Assigned Heart and Vascular Provider 05/13/22 06/30/22 Daylin Ludwig EP [facility] [address] [place] [address] Cardiac Rehabilitation Therapist 06/08/22 06/09/23 Paula Reza MD [place]NACTIVE IN [place] 02/02/2024 Assigned PCP 07/01/22 07/07/22 Porsha Michaels, DUANE WOOD CHOPPER [address] [place] [address] Assigned Heart and Vascular Provider 07/01/22 07/07/22 Laurel Velasquez MD [address] [place] [address] Assigned Heart and Vascular Provider 07/08/22 08/04/22 Shahida Sutton APRN WOOD CHOPPER Assigned PCP 07/08/22 09/08/22 Marilin Montaño, WOOD CHOPPER [address] [place] [address] Assigned Heart and Vascular Provider 08/05/22 02/24/24 Esha Dewitt MD 420 [facility] 36 [place], [place] [address] Gastroenterology 09/06/22 Heather Mosquera MD [address] [place] [address] Internal Medicine 09/06/22 Paula Reza MD INACTIVE IN [place] 02/02/2024 Assigned PCP 09/09/22 01/05/23 Esha Dewitt MD 420 [facility] 36 [place] [address] Assigned Gastroenterology Provider 09/23/22 04/26/24 Valdo Escamilla PA-C [address] [place] [address] Assigned Neuroscience Provider 09/30/22 04/26/24 Nohelia Abarca PA-C [address] [facility] [address] [place] [address] Physician Bee Worker Gastroenterology 10/03/22 Heather Mosquera MD 6545 [facility] [address] [place] [address] Assigned PCP 01/06/23 Fawad York MD [address] [facility] [place], [place] [address] Assigned Musculoskeletal Provider 04/27/23 06/25/23 documented as of this encounter
--- OUTSIDE RECORDS SUMMARY | 2024-11-02 15:17 | XMS_ITS | Encounter Summary ---
Author Organization [place] Address [address] [place] [address] Care Team Providers Care Online Banking Specialist Name Role Phone Roopa Almonte MD Unavailable [phone] Maryse Burton PA-C Unavailable [phone] Roopa Almonte MD Unavailable [phone] Griffin Joshi MD Unavailable Paula Reza MD Primary Care Provider Unavailabl e Roopa Almonte MD Unavailable [phone] Augustine Callaway MD Unavailable Daylin Ludwig Unavailable [phone] Daylin Ludwig Unavailable [phone] Marilin Montaño TROUBLE SHOOTING MECHANIC Unavailable [phone] Esha Dewitt MD Unavailable [phone] Heather Mosquera MD Unavailable [phone] Paula Reza MD Unavailable Unavailable Esha Dewitt MD Unavailable [phone] Valdo Escamilla-C Unavailable [phone] Nohelia AbarcaC Unavailable [phone] Heather Mosquera MD Unavailable Fawad York MD Unavailable Encounter Details Date Type Department Care Team (Late st Contact Info) Description 09/13/2022 MyC Medical Advice [facility] Gastroenterology Clinic [place] [address] [facility] [address] 4th [place] [address] Esha Dewitt MD 420 [facility] 36 [place] [address] Social History Tobacco Use Types [...] AM CDT Legal 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 Gender Identity Male 09/20/2020 8:37 AM CDT Sexual Orientation Straight 09/20/2020 8: 37 AM CDT 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 Not on file [...] to Optimize Self-Care Behaviors 90%(03/23/19 3:12 PM SPRING FORMER MACHINE) Angelita Diaz RD Note: I will [...] documented as of this encounter Care Teams Online Banking Specialist Relationship Specialty Start Date End Date Paula Reza MD [address] [facility] [address] [place] [address] PCP - General Internal Medicine 08/05/21 Roopa Almonte MD [address] [facility] 200 [place] [address] Endocrinology, Diabetes, and Metabolism 01/19/21 Maryse Burton, PAAna MariaC [address] [place], [place] [address] Physician Cutter Hand Dermatology 04/14/21 Roopa Almonte MD [address] [facility] 200 [place] [address] Hospitalist Endocrinology, Diabetes, and Metabolism 05/30/21 Griffin Joshi MD [address] [facility] [address] [place] [address] Cardiovascular Disease 07/25/21 Roopa Almonte MD [address] [place] [address] 200 [place], [place] [address] Assigned Endocrinology Provider 09/10/21 02/24/24 [place] [address] [facility] 300 [place] [address] Assigned Musculoskeletal Provider 10/15/21 04/26/23 Daylin Ludwig EP [facility] [address] [place] [address] Cardiac Rehabilitation Therapist 05/16/23 Daylin Ludwig, MIKI [facility] [address] [place] [address] Cardiac Rehabilitation Therapist 06/08/22 06/09/23 Marilin Montaño, TROUBLE SHOOTING MECHANIC [address] [place], [place] [address] Assigned Heart and Vascular Provider 08/05/22 02/24/24 Esha Dewitt MD 420 [facility] 36 [place], [place] [address] Gastroenterology 09/06/22 Heather Mosquera MD [address] [place] [address] Internal Medicine 09/06/22 Paula Reza MD INACTIVE IN [place] 02/02/2024 Assigned PCP 09/09/22 01/05/23 Esha Dewitt MD 420 [facility] 36 [place] [address] Assigned Gastroenterology Provider 09/23/22 04/26/24 Valdo Escamilla PA-C [address] [place] [address] Assigned Neuroscience Provider 09/30/22 04/26/24 Nohelia Abarca PA-C [address] [place] [address] Physician Cutter Hand Gastroenterology 10/03/22 Heather Mosquera MD [address] [place] [address] Assigned PCP 01/06/23 Fawad York MD [address] [place], [place] [address] Assigned Musculoskeletal Provider 04/27/23 06/25/23 documented as of this encounter
--- OUTSIDE RECORDS SUMMARY | 2024-11-02 15:17 | XMS_ITS | Encounter Summary ---
Author Organization [place] Address [address] [place] [address] Care Team Providers Care Shooter'S Helper Name Role Phone Shahida Sutton Zoila ZEPEDA UTILITY MECHANIC Unavailable Un available Roopa Almonte MD Unavailable [phone] Augustine Callaway MD Unavailable Maryse BurtonC Unavailable Roopa Almonte MD Unavailable [phone] Griffin Joshi MD Unavailable Rina Magallon RN Unavailable [phone] Paula Reza MD Primary Care Provider UnavailGriffin Youssef MD Unavailable Roopa Almonte MD Unavailable [phone] Basilio Morillo DO Unavailable [phone] Lydia Bernstein PA-C Unavailable Rosa Maria Love Unavailable [phone] Augustine Callaway MD Unavailable Paula Reza MD Unavailable Unavailable Keerthi Miner APRN UTILITY MECHANIC Unavailable [phone] Shahida Sutton APRN UTILITY MECHANIC Unavailable Un available Porsha Michaels APRN UTILITY MECHANIC Unavailable +[phone] Paula Reza MD Unavailable Unavailable Shahida Sutton APRN UTILITY MECHANIC Unavailable Un available Daylin Ludwig Unavailable [phone] Laurel Velasquez MD Unavailable [phone] Daylin Ludwig Unavailable [phone] Paula Reza MD Unavailable Unavailable Porsha Michaels APRN UTILITY MECHANIC Unavailable [phone] Laurel Velasquez MD Unavailable [phone] Herman Shahida Cummings DRAFTER CASTINGS UTILITY MECHANIC Unavailable Un available Marilin Montaño UTILITY MECHANIC Unavailable [phone] Esha Dewitt MD Unavailable [phone] Heather Mosquera MD Unavailable [phone] Paula Reza MD Unavailable Unavailable Esha Dewitt MD Unavailable [phone] Valdo Escamilla-C Unavailable [phone] Nohelia AbarcaC Unavailable [phone] Heather Mosquera MD Unavailable [phone] Fawad York MD Unavailable [phone] Encounter Details Date Type Department Care Team (Late st Contact Info) Description 08/29/2021 [facility] Medical Advice [facility] Endocrinology Clinic [place] [address] [facility] 3rd [place] [address] Maximiliano Herrmann Social History Tobacco Use Types [...] AM CDT Legal Sex Male 3:40 AM CELLAR HAND Gender Identity Male 09/20/2020 8:37 AM CDT Sexual Orientation Straight 09/20/2020 8: 37 AM CDT 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 Not on file [...] documented as of this encounter Care Teams Shooter'S Helper Relationship Specialty Start Date End Date Paula Reza MD PCP - General Internal Medicine 08/05/21 Shahida Sutton APRN UTILITY MECHANIC Assigned PCP 07/12/14 09/30/21 Roopa Almonte MD [address] [facility] 200 [place] [address] Endocrinology, Diabetes, and Metabolism 01/19/21 [place] [address] [facility] 300 [place] [address] Assigned Musculoskeletal Provider 02/06/21 09/16/21 Maryse Burton PA-C 5200 [place] [address] Physician Accident Examiner Dermatology 04/14/21 Roopa Almonte MD [address] [facility] 200 [place] [address] Hospitalist Endocrinology, Diabetes, and Metabolism 05/30/21 Griffin Joshi MD [address] [facility] [address] [place] [address] Cardiovascular Disease 07/25/21 Rina Magallon, RN Lead Humanities Division Chair 07/29/21 07/11/22 Griffin Joshi MD [address] [facility] [address] [place] [address] Assigned Heart and Vascular Provider 08/06/21 10/07/21 Roopa Almonte MD [address] [facility] 200 [place], [place] [address] Assigned Endocrinology Provider 09/10/21 02/24/24 [place] [address] [address] [place] [address] Assigned Musculoskeletal Provider 09/17/21 10/14/21 yLdia Bernstein PA-C [address] [place] [address] Assigned PCP 10/01/21 10/21/21 Biayessy Rosa Maria, W Community Health Worker 10/06/21 07/11/22 [place] [address] [place] [address] Assigned Musculoskeletal Provider 10/15/21 04/26/23 Paula Reza MD INACTIVE IN [place] 02/02/2024 Assigned PCP 10/22/21 12/23/21 Keerthi Miner APRN UTILITY MECHANIC [address] [place] [address] Assigned Heart and Vascular Provider 10/08/21 02/10/22 Shahida Sutton APRN UTILITY MECHANIC Assigned PCP 12/24/21 03/24/22 Porsha Michaels APRN UTILITY MECHANIC [address] [place] [address] Assigned Heart and Vascular Provider 02/11/22 05/12/22 Paula Reza MD [place]IVE IN [place] 02/02/2024 Assigned PCP 03/25/22 04/07/22 Shahida Sutton APRN UTILITY MECHANIC [address] [place] [address] Assigned PCP 04/08/22 06/30/22 Daylin Ludwig EP [facility] [address] [place] [address] Cardiac Rehabilitation Therapist 05/16/23 Laurel Velasquez MD [address] [place] [address] Assigned Heart and Vascular Provider 05/13/22 06/30/22 Daylin Ludwig EP [facility] [address] [place] [address] Cardiac Rehabilitation Therapist 06/08/22 06/09/23 Paula Reza MD [place]IVE IN [place] 02/02/2024 Assigned PCP 07/01/22 07/07/22 Porsha Michaels APRN UTILITY MECHANIC [address] [place] [address] Assigned Heart and Vascular Provider 07/01/22 07/07/22 Laurel Velasquez MD [address] [place] [address] Assigned Heart and Vascular Provider 07/08/22 08/04/22 Shahida Sutton APRN UTILITY MECHANIC Assigned PCP 07/08/22 09/08/22 Marilin Montaño, UTILITY MECHANIC [address] [place] [address] Assigned Heart and Vascular Provider 08/05/22 02/24/24 Esha Dewitt MD [address] [place] [address] 36 [place], [place] [address] Gastroenterology 09/06/22 Heather Mosquera MD [address] [place] [address] Internal Medicine 09/06/22 Paula Reza MD [place]CTIVE IN [place] 02/02/2024 Assigned PCP 09/09/22 01/05/23 Esha Dewitt MD [address] [place] [address] 36 [place] [address] Assigned Gastroenterology Provider 09/23/22 04/26/24 Valdo Escamilla PA-C [address] [place] [address] Assigned Neuroscience Provider 09/30/22 04/26/24 Nohelia Abarca PA-C [address] [place] [address] Physician Accident Examiner Gastroenterology 10/03/22 Heather Mosquera MD [address] [place] [address] Assigned PCP 01/06/23 Fawad York MD 909 [place], [place] [address] Assigned Musculoskeletal Provider 04/27/23 06/25/23 documented as of this encounter
--- OUTSIDE RECORDS SUMMARY | 2024-11-02 15:17 | XMS_ITS | Encounter Summary ---
Author Organization [place] Address [address] [place] [address] Care Team Providers Care Gambling Floor Supervisor Name Role Phone Roopa Almonte MD Unavailable [phone] Maryse Burton PA-C Unavailable [phone] Roopa Almonte MD Unavailable [phone] Griffin Joshi MD Unavailable Paula Reza MD Primary Care Provider Unavailabl e Roopa Almonte MD Unavailable [phone] Augustine Callaway MD Unavailable Daylin Ludwig EP Unavailable [phone] Daylin Ludwig EP Unavailable [phone] Shahida Sutton APRN CLINICAL PHLEBOTOMIST Unavailable Un available Marilin Montaño CLINICAL PHLEBOTOMIST Unavailable [phone] Esha Dewitt MD Unavailable [phone] Heather Mosquera MD Unavailable [phone] Paula Reza MD Unavailable Unavailable Esha Dewitt MD Unavailable [phone] Valdo Escamilla PA-C Unavailable [phone] Nohelia Abarca PA-C Unavailable [phone] Heather Mosquera MD Unavailable Fawad York MD Unavailable Encounter Details Date Type Department Care Team (Late st Contact Info) Description 08/23/2022 MyC Medical Advice [facility] [address] [place] [address] Carmen Prince, 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 SCIENCE PROFESSOR Social History Tobacco Use Types Packs/Day Years [...] AM CDT Legal Sex Male 3:40 AM MAPLE SUGAR MAKER Gender Identity Male 09/20/2020 8:37 AM CDT Sexual Orientation Straight 09/20/2020 8: 37 AM CDT 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 Not [...] to Optimize Self-Care Behaviors 90%(03/23/19 3:12 PM MAPLE SUGAR MAKER) Angelita Diaz RD Note: I will [...] documented as of this encounter Care Teams Gambling Floor Supervisor Relationship Specialty Start Date End Date Paula Reza MD [address] [facility] [address] [place] [address] PCP - General Internal Medicine 08/05/21 Roopa Almonte MD [address] [address] Endocrinology, Diabetes, and Metabolism 01/19/21 Maryse Burton, PA-C 5[address] [place] [address] Physician Dowel Pointer Dermatology 04/14/21 Roopa Almonte MD [address] [address] Hospitalist Endocrinology, Diabetes, and Metabolism 05/30/21 Griffin Joshi MD [address] [facility]00 [place] [address] Cardiovascular Disease 07/25/21 Roopa Almonte MD [address] [place] [address] 200 [place], [place] [address] Assigned Endocrinology Provider 09/10/21 02/24/24 [place] [address] [facility] 300 [place] [address] Assigned Musculoskeletal Provider 10/15/21 04/26/23 Daylin Ludwig EP [facility] [address] [place] [address] Cardiac Rehabilitation Therapist 05/16/23 Daylin Ludwig EP [facility] [address] [place] [place] [address] Cardiac Rehabilitation Therapist 06/08/22 06/09/23 Shahida Sutton APRN CLINICAL PHLEBOTOMIST Assigned PCP 07/08/22 09/08/22 Marilin Montaño, CLINICAL PHLEBOTOMIST [address] [place] [address] Assigned Heart and Vascular Provider 08/05/22 02/24/24 Esha Dewitt MD 420 [facility] 36 [place], [place] [address] Gastroenterology 09/06/22 Heather Mosquera MD [address] [place] [address] Internal Medicine 09/06/22 Paula Reza MD INACTIVE IN [place] 02/02/2024 Assigned PCP 09/09/22 01/05/23 Esha Dewitt MD 420 [facility] 36 [place] [address] Assigned Gastroenterology Provider 09/23/22 04/26/24 Valdo Escamilla PA-C [address] [place] [address] Assigned Neuroscience Provider 09/30/22 04/26/24 Nohelia Abarca PA-C [address] [place] [address] Physician Dowel Pointer Gastroenterology 10/03/22 Heather Mosquera MD [address] [place] [address] Assigned PCP 01/06/23 Fawad York MD [address] [place], [place] [address] Assigned Musculoskeletal Provider 04/27/23 06/25/23 documented as of this encounter
--- OUTSIDE RECORDS SUMMARY | 2024-11-02 15:17 | XMS_ITS | Encounter Summary ---
Author Organization [facility] Address [address] [place] [address] Care Team Providers Care Blower Installer Name Role Phone Shahida Sutton Zoila ZEPEDA YARN WEIGHT AND STRENGTH TESTER Unavailable Un available Roopa Almonte MD Unavailable [phone] Augustine Callaway MD Unavailable Maryse BurtonC Unavailable Roopa Almonte MD Unavailable [phone] Griffin Joshi MD Unavailable Rina Magallon RN Unavailable [phone] Paula Reza MD Primary Care Provider UnavailGriffin Youssef MD Unavailable Roopa Almonte MD Unavailable [phone] Basilio Morillo DO Unavailable Lydia Bernstein PA-C Unavailable oRsa Maria Love Unavailable [phone] Augustine Callaway MD Unavailable Paula Reza MD Unavailable Unavailable Keerthi Miner APRN YARN WEIGHT AND STRENGTH TESTER Unavailable [phone] Herman Shahida Cummings APRN YARN WEIGHT AND STRENGTH TESTER Unavailable Un available Porsha Michaels APRN YARN WEIGHT AND STRENGTH TESTER Unavailable [phone] Paula Reza MD Unavailable Unavailable Shahida Sutton APRN YARN WEIGHT AND STRENGTH TESTER Unavailable Un available Daylin Ludwig Unavailable [phone] Laurel Velasquez MD Unavailable [phone] Daylin Ludwig EP Unavailable [phone] Paula Reza MD Unavailable Unavailable Porsha Michaels APRN YARN WEIGHT AND STRENGTH TESTER Unavailable [phone] Laurel Velasquez MD Unavailable [phone] Herman, Shahida Cummings HOSPITAL TECHNICIAN YARN WEIGHT AND STRENGTH TESTER Unavailable Un available Marilin Montaño YARN WEIGHT AND STRENGTH TESTER Unavailable [phone] Esha Dewitt MD Unavailable [phone] Heather Mosquera MD Unavailable [phone] Paula Reza MD Unavailable Unavailable Esha Dewitt MD Unavailable [phone] Valdo EscamillaC Unavailable [phone] Nohelia Abarca PA-C Unavailable [phone] Heather Mosquera MD Unavailable [phone] Fawad York MD Unavailable [phone] Encounter Details Date Type Department Care Team (Late st Contact Info) Description 08/09/2021 MyC Medical Advice [facility] [address] [place] [address] Jessica Ramires RN Social History Tobacco [...] CDT Legal 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 Male 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 SPECIALIST Gender Identity Male 09/20/2020 8:37 AM [...] documented as of this encounter Care Teams Blower Installer Relationship Specialty Start Date End Date Paula Reza MD PCP - General Internal Medicine 08/05/21 Shahida Sutton APRN YARN WEIGHT AND STRENGTH TESTER Assigned PCP 07/12/14 09/30/21 Roopa Almonte MD [address] [facility] [address] [place] [address] Endocrinology, Diabetes, and Metabolism 01/19/21 [place] [address] [facility] [address] [place] [address] Assigned Musculoskeletal Provider 02/06/21 09/16/21 Maryse Burton PA-C [address] [place] [address] Physician Grease Refining Supervisor Dermatology 04/14/21 Roopa Almonte MD [address] [facility] 200 [place] [address] Hospitalist Endocrinology, Diabetes, and Metabolism 05/30/21 Griffin Joshi MD [address] [facility] [address] [place] [address] Cardiovascular Disease 07/25/21 Rina Magallon, RN Lead Storekeeper Engineering 07/29/21 07/11/22 Griffin Joshi MD [address] [facility] [address] [place] [address] Assigned Heart and Vascular Provider 08/06/21 10/07/21 Roopa Almonte MD [address] [place] [address] [address] [place], [place] [address] Assigned Endocrinology Provider 09/10/21 02/24/24 [place] [address] [facility] [place] [address] Assigned Musculoskeletal Provider 09/17/21 10/14/21 Lydia Bernstein PA-C [address] [place] [address] Assigned PCP 10/01/21 10/21/21 Jigarping Rosa Maria, W Community Health Worker 10/06/21 07/11/22 [place] [address] [place] [address] Assigned Musculoskeletal Provider 10/15/21 04/26/23 Paula Reza MD [place]NACTIVE IN [place] 02/02/2024 Assigned PCP 10/22/21 12/23/21 Keerthi Miner APRN YARN WEIGHT AND STRENGTH TESTER [address] [place] [address] Assigned Heart and Vascular Provider 10/08/21 02/10/22 Shahida Sutton APRN YARN WEIGHT AND STRENGTH TESTER Assigned PCP 12/24/21 03/24/22 Porsha Michaels APRN YARN WEIGHT AND STRENGTH TESTER [address] [place] [address] Assigned Heart and Vascular Provider 02/11/22 05/12/22 Paula Reza MD [place]NACTIVE IN [place] 02/02/2024 Assigned PCP 03/25/22 04/07/22 Shahida Sutton APRN YARN WEIGHT AND STRENGTH TESTER [address] [place] [address] Assigned PCP 04/08/22 06/30/22 Daylin Ludwig EP [facility] [address] [place] [address] Cardiac Rehabilitation Therapist 05/16/23 Laurel Velasquez MD [address] [place] [address] Assigned Heart and Vascular Provider 05/13/22 06/30/22 Daylin Ludwig EP [facility] [address] [place] [address] Cardiac Rehabilitation Therapist 06/08/22 06/09/23 Paula Reza MD [place]NACTIVE IN [place] 02/02/2024 Assigned PCP 07/01/22 07/07/22 Porsha Michaels APRN YARN WEIGHT AND STRENGTH TESTER [address] [place] [address] Assigned Heart and Vascular Provider 07/01/22 07/07/22 Laurel Velasquez MD [address] [place] [address] Assigned Heart and Vascular Provider 07/08/22 08/04/22 Shahida Sutton, DUANE YARN WEIGHT AND STRENGTH TESTER Assigned PCP 07/08/22 09/08/22 Marilin Montaño, YARN WEIGHT AND STRENGTH TESTER [address] [place] [address] Assigned Heart and Vascular Provider 08/05/22 02/24/24 Esha Dewitt MD [address] [place] [address] 36 [place], [place] [address] Gastroenterology 09/06/22 Heather Mosquera MD [address] [place] [address] Internal Medicine 09/06/22 Paula Reza MD [place]NACTIVE IN [place] 02/02/2024 Assigned PCP 09/09/22 01/05/23 Esha Dewitt MD [address] [place] [address] 36 [place] [address] Assigned Gastroenterology Provider 09/23/22 04/26/24 Valdo Escamilla PA-C [address] [place] [address] Assigned Neuroscience Provider 09/30/22 04/26/24 Nohelia Abarca PA-C [address] [place] [address] Physician Grease Refining Supervisor Gastroenterology 10/03/22 Heather Mosquera MD [address] [place] [address] Assigned PCP 01/06/23 Fawad York MD [address] [place], [place] [address] Assigned Musculoskeletal Provider 04/27/23 06/25/23 documented as of this encounter
--- OUTSIDE RECORDS SUMMARY | 2024-11-02 15:17 | XMS_ITS | Encounter Summary ---
Author Organization [facility] Address [address] [place] [address] Care Team Providers Care Crystal Syrup Maker Name Role Phone Roopa Almonte MD Unavailable [phone] Maryse Burton PA-C Unavailable [phone] Roopa Almonte MD Unavailable [phone] Griffin Joshi MD Unavailable Rina Magallon RN Unavailable [phone] Paula Reza MD Primary Care Provider Unavailabl e Roopa Almonte MD Unavailable [phone] Rosa Maria Love Unavailable [phone] Augustine Callaway MD Unavailable Porsha Michaels APRN [employer]LE SCHOOL BASEBALL COACH Unavailable [phone] Shahida Sutton APRN MIDDLE SCHOOL BASEBALL COACH Unavailable Un available Daylin Ludwig Unavailable [phone] Laurel Velasquez MD Unavailable [phone] Daylin Ludwig Unavailable [phone] Paula Reza MD Unavailable Unavailable Porsha Michaels APRN [employer] SCHOOL BASEBALL COACH Unavailable [phone] Laurel Velasquez MD Unavailable Shahida Sutton APRN [employer]DLE SCHOOL BASEBALL COACH Unavailable Un available Marilin Montaño MIDDLE SCHOOL BASEBALL COACH Unavailable [phone] Esha Dewitt MD Unavailable [phone] Heather Mosquera MD Unavailable [phone] Paula Reza MD Unavailable Unavailable Esha Dewitt MD Unavailable [phone] Valdo Escamilla PA-C Unavailable [phone] Nohelia Abarca PA-C Unavailable [phone] Heather Mosquera MD Unavailable [phone] Fawad York MD Unavailable [phone] Encounter Details Date Type Department Care Team (Late st Contact Info) Description 04/18/2022 MyC Medical Advice [address] [place] [address] Sonia Neal, RN Social History [...] AM CDT Legal Sex Male 3: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 No / Unsure 04/12/2022 3:43 PM ORANGE PEEL OPERATOR documented as of this encounter Plan [...] to Optimize Self-Care Behaviors 90%(03/23/19 3:12 PM ORANGE PEEL OPERATOR) Angelita Diaz RD Note: I will [...] documented as of this encounter Care Teams Crystal Syrup Maker Relationship Specialty Start Date End Date Paula Reza MD PCP - General Internal Medicine 08/05/21 Roopa Almonte MD [address] [facility] [address] [place], [place] [address] Endocrinology, Diabetes, and Metabolism 01/19/21 Maryse Burton, PAAna MariaC [address] [place] [address] Physician Mailroom Clerk Dermatology 04/14/21 Roopa Almonte MD [address] [facility] [address] [place] [address] Hospitalist Endocrinology, Diabetes, and Metabolism 05/30/21 Griffin Joshi MD [address] [facility] [address] [place], [place] [address] Cardiovascular Disease 07/25/21 Rina Magallon, RN Lead Applied Psychology Chair 07/29/21 07/11/22 Roopa Almonte MD [address] [facility] 200 [place] [address] Assigned Endocrinology Provider 09/10/21 02/24/24 Rosa Maria Love SHARDAW Community Health Worker 10/06/21 07/11/22 [place] [address] [facility] [address] [place] [address] Assigned Musculoskeletal Provider 10/15/21 04/26/23 Porsha Michaels APRN MIDDLE SCHOOL BASEBALL COACH [address] [place] [address] Assigned Heart and Vascular Provider 02/11/22 05/12/22 Shahida Sutton APRN MIDDLE SCHOOL BASEBALL COACH [address] [place] [address] Assigned PCP 04/08/22 06/30/22 Daylin Ludwig EP [facility] [address] [place] [address] Cardiac Rehabilitation Therapist 05/16/23 Laurel Velasquez MD [address] [place] [address] Assigned Heart and Vascular Provider 05/13/22 06/30/22 Daylin Ludwig, MIKI [facility] [address] [place] [address] Cardiac Rehabilitation Therapist 06/08/22 06/09/23 Paula Reza MD INACTIVE IN [place] 02/02/2024 Assigned PCP 07/01/22 07/07/22 Porsha Michaels, RELAY WORKER MIDDLE SCHOOL BASEBALL COACH [address] [place] [address] Assigned Heart and Vascular Provider 07/01/22 07/07/22 Laurel Velasquez MD [address] [place] [address] Assigned Heart and Vascular Provider 07/08/22 08/04/22 Shahida Sutton, RELAY WORKER MIDDLE SCHOOL BASEBALL COACH Assigned PCP 07/08/22 09/08/22 Marilin Montaño, MIDDLE SCHOOL BASEBALL COACH [address] [place], [place] [address] Assigned Heart and Vascular Provider 08/05/22 02/24/24 Esha Dewitt MD [address] [facility] 36 [place], [place] [address] Gastroenterology 09/06/22 Heather Mosquera MD [address] [place], [place] [address] Internal Medicine 09/06/22 Paula Reza MD INACTIVE IN [place] 02/02/2024 Assigned PCP 09/09/22 01/05/23 Esha Dewitt MD [address] [address] Assigned Gastroenterology Provider 09/23/22 04/26/24 Valdo Escamilla PA-C [address] [place] [address] Assigned Neuroscience Provider 09/30/22 04/26/24 Nohelia Abarca PA-C [address] [facility] [address] [place] [address] Physician Mailroom Clerk Gastroenterology 10/03/22 Heather Mosquera MD [address] [facility] [address] [place] [address] Assigned PCP 01/06/23 Fawad York MD [address] [place] [address] Assigned Musculoskeletal Provider 04/27/23 06/25/23 documented as of this encounter
--- OUTSIDE RECORDS SUMMARY | 2024-11-02 15:17 | XMS_ITS | Encounter Summary ---
Author Organization [facility] Address [address] [place] [address] Care Team Providers Care Assistant Professor Of History Name Role Phone Roopa Almonte MD Unavailable [phone] Maryse Burton PA-C Unavailable [phone] Roopa Almonte MD Unavailable [phone] Griffin Joshi MD Unavailable Rina Magallon RN Unavailable [phone] Paula Reza MD Primary Care Provider Unavailabl e Roopa Almonte MD Unavailable [phone] Rosa Maria Love Unavailable [phone] Augustine Callaway MD Unavailable Porsha Michaels APRN GAUGE MAKER Unavailable [phone] Shahida Sutton APRN GAUGE MAKER Unavailable Un available Daylin Ludwig Unavailable [phone] Laurel Velasquez MD Unavailable [phone] Daylin Ludwig Unavailable [phone] Paula Reza MD Unavailable Unavailable Porsha Michaels APRN GAUGE MAKER Unavailable Laurel Velasquez MD Unavailable [phone] Shahida Sutton APRN GAUGE MAKER Unavailable Un available Marilin Montaño GAUGE MAKER Unavailable [phone] Esha Dewitt MD Unavailable [phone] Heather Mosquera MD Unavailable [phone] Paula Reza MD Unavailable Unavailable Esha Dewitt MD Unavailable [phone] Valdo Escamilla PA-C Unavailable [phone] Nohelia Abarca PA-C Unavailable [phone] Heather Mosquera MD Unavailable [phone] Fawad York MD Unavailable [phone] Encounter Details Date Type Department Care Team (Late st Contact Info) Description 05/02/2022 MyC Medical Advice [address] [address] Alexa Madden Social History Tobacco Use Types Packs/Day Years Used Date Smoking Tobacco: Former Cigarettes Q uit: 12/09/2006 Cigars Smokeless Tobacco: Never Alcohol Use Standard Drinks/Week Comments Not Currently 0 (1 standard drink = 0.6 oz pur e alcohol) Overall Financial Resource Strain (CARDI) Answe r Date Recorded How hard is [...] AM CDT Legal Sex Male 3:40 AM OFFICE AUTOMATION CLERK Gender Identity Male 09/20/2020 8:37 AM CDT Sexual Orientation Straight 09/20/2020 8: 37 AM CDT 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 No / Unsure 05/02/2022 3:45 PM OFFICE AUTOMATION CLERK documented as of this encounter Plan of [...] to Optimize Self-Care Behaviors 90%(03/23/19 3:12 PM OFFICE AUTOMATION CLERK) Angelita Diaz RD Note: I will [...] documented as of this encounter Care Teams Assistant Professor Of History Relationship Specialty Start Date End Date Paula Reza MD PCP - General Internal Medicine 08/05/21 Roopa Almonte MD [address] [facility] [address] [place] [address] Endocrinology, Diabetes, and Metabolism 01/19/21 Maryse Burton, PA-C [address] [place] [address] Physician Truckload Checker Dermatology 04/14/21 Roopa Almonte MD [address] [facility] [address] [place] [address] Hospitalist Endocrinology, Diabetes, and Metabolism 05/30/21 Griffin Joshi MD [address] [facility] [address] [place] [address] Cardiovascular Disease 07/25/21 Rina Magallon, RN Lead Aitchbone Breaker 07/29/21 07/11/22 Roopa Almonte MD [address] [facility] [facility] [address] [place] [address] Assigned Endocrinology Provider 09/10/21 02/24/24 Kate Rosa Maria, SHARDAW Community Health Worker 10/06/21 07/11/22 [place] [address] [facility] 300 [place] [address] Assigned Musculoskeletal Provider 10/15/21 04/26/23 Porsha Michaels APRN GAUGE MAKER [address] [address] Assigned Heart and Vascular Provider 02/11/22 05/12/22 Shahida Sutton APRN GAUGE MAKER [address] [address] Assigned PCP 04/08/22 06/30/22 Daylin Ludwig, MIKI [facility] [address] [address] Cardiac Rehabilitation Therapist 05/16/23 Laurel Velasquez MD [address] [address] Assigned Heart and Vascular Provider 05/13/22 06/30/22 Daylin Ludwig, MIKI [facility] [address] [address] Cardiac Rehabilitation Therapist 06/08/22 06/09/23 Paula Reza MD INACTIVE IN [place] 02/02/2024 Assigned PCP 07/01/22 07/07/22 Porsha Michaels, CAKE MAKER GAUGE MAKER [address] [place] [address] Assigned Heart and Vascular Provider 07/01/22 07/07/22 Laurel Velasquez MD [address] [place] [address] Assigned Heart and Vascular Provider 07/08/22 08/04/22 Shahida Sutton, CAKE MAKER GAUGE MAKER Assigned PCP 07/08/22 09/08/22 Marilin Montaño, GAUGE MAKER [address] [place] [address] Assigned Heart and Vascular Provider 08/05/22 02/24/24 Esha Dewitt MD [address] [facility] 36 [place] [address] Gastroenterology 09/06/22 Heather Mosquera MD [address] [place] [address] Internal Medicine 09/06/22 Paula Reza MD INACTIVE IN [place] 02/02/2024 Assigned PCP 09/09/22 01/05/23 Esha Dewitt MD [address] [address] Assigned Gastroenterology Provider 09/23/22 04/26/24 Valdo Escamilla PA-C [address] [place] [address] Assigned Neuroscience Provider 09/30/22 04/26/24 Nohelia Abarca PA-C [address] [place] [address] Physician Truckload Checker Gastroenterology 10/03/22 Heather Mosquera MD [address] [facility] [facility] [address] [place] [address] Assigned PCP 01/06/23 Fawad York MD [address] [place] [address] Assigned Musculoskeletal Provider 04/27/23 06/25/23 documented as of this encounter
--- OUTSIDE RECORDS SUMMARY | 2024-11-02 15:17 | XMS_ITS | Encounter Summary ---
Author Organization [facility] Address [address] [place] [address] Care Team Providers Care Grocery Clerk Marking Name Role Phone Shahida Sutton CONTACT CENTER ANALYST WOOD BARREL RECONDITIONER Primary Care Provi ford Unavailable Shahida Sutton APRN WOOD BARREL RECONDITIONER Unavailable Un available Carolynn Ramon RN Unavailable [phone] Anabela Barakat APRN WOOD BARREL RECONDITIONER Unavailable Roopa Almonte MD Unavailable [phone] Augustine Callaway MD Unavailable Maryse Burton PA-C Unavailable [phone] Roopa Almonte MD Unavailable [phone] Griffin Joshi MD Unavailable Rina Magallon RN Unavailable [phone] Paula Reza MD Primary Care Provider UnavailGriffin Youssef MD Unavailable Roopa Almonte MD Unavailable [phone] Basilio Morillo DO Unavailable Lydia Bernstein PA-C Unavailable Rosa Maria Love Unavailable [phone] Augustine Callaway MD Unavailable Paula Reza MD Unavailable Unavailable Keerthi Miner APRN WOOD BARREL RECONDITIONER Unavailable [phone] HermanShahida huerta APRN WOOD BARREL RECONDITIONER Unavailable Un available Porsha Michaels APRN WOOD BARREL RECONDITIONER Unavailable [phone] Paula Reza MD Unavailable Unavailable HermanShahida huerta APRN WOOD BARREL RECONDITIONER Unavailable Un available Daylin Ludwig Unavailable [phone] Laurel Velasquez MD Unavailable [phone] Daylin Ludwig Unavailable [phone] Paula Reza MD Unavailable Unavailable Porsha Michaels APRN WOOD BARREL RECONDITIONER Unavailable [phone] Laurel Velasquez MD Unavailable [phone] Herman, Shahida Cummings APRN WOOD BARREL RECONDITIONER Unavailable Un available Marilin Montaño WOOD BARREL RECONDITIONER Unavailable [phone] Esha Dewitt MD Unavailable [phone] Heather Mosquera MD Unavailable [phone] Paula Reza MD Unavailable Unavailable Esha Dewitt MD Unavailable [phone] Valdo Escamilla PA-C Unavailable [phone] Nohelia Abarca PA-C Unavailable [phone] Heather Mosquera MD Unavailable [phone] Fawad York MD Unavailable +[phone] Reason for Visit * Reason Onset Date Comments Patient Request 07/01/2021 Work letter - KASIE [employer]TG[employer] Encounter Details Date Type Department Care Team (Late st Contact Info) Description 07/01/2021 [facility] [place] Medical Advice [address] [address] Shahida Sutton APRN CNP Patient Request (Work letter - RN ULISES [...] AM CDT Legal Sex Male 3:40 AM [employer] Gender Identity Male 09/20/2020 8:37 AM CDT Sexual Orientation Straight 09/20/2020 8: 37 AM CDT 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 file Not on file [...] Ramon, Registered Nurse, ULISES (Patient Advocate Liason) [facility] [phone] * Telephone Encounter - Marquita Singh CMA [...] Time PHQ-9 Depression Total Score: 7 11/05/19 7:03 AM CDT documented as of this encounter Care Teams Grocery Clerk Marking Relationship Specialty Start Date End Date Shahida Sutton APRN WOOD BARREL RECONDITIONER PCP - General Nurse Practitioner 08/17/14 08/04/21 Paula Reza MD PCP - General Internal Medicine 08/05/21 Shahida Sutton APRN WOOD BARREL RECONDITIONER Assigned PCP 07/12/14 09/30/21 Carolynn Ramon RN Personal Advocate & Liaison (PAL) 12/17/18 08/07/21 Anabela Barakat APRN WOOD BARREL RECONDITIONER [address] [place] [address] Assigned Heart and Vascular Provider 08/15/20 08/05/21 Roopa Almonte MD [address] [facility] [address] [place] [address] Endocrinology, Diabetes, and Metabolism 01/19/21 [place] [address] [facility] [address] [place] [address] Assigned Musculoskeletal Provider 02/06/21 09/16/21 Maryse Burton PA-C [address] [place] [address] Physician Land Leveler Dermatology 04/14/21 Roopa Almonte MD [address] [facility] [address] [place] [address] Hospitalist Endocrinology, Diabetes, and Metabolism 05/30/21 Griffin Joshi MD [address] [facility] [address] [place] [address] Cardiovascular Disease 07/25/21 Rina Magallon, RN Lead In Store Banker 07/29/21 07/11/22 Griffin Joshi MD [address] [facility] [address] [place] [address] Assigned Heart and Vascular Provider 08/06/21 10/07/21 Roopa Almonte MD [address] [place] [address] [address] [place], [place] [address] Assigned Endocrinology Provider 09/10/21 02/24/24 [place] [address] [facility] [place] [address] Assigned Musculoskeletal Provider 09/17/21 10/14/21 Lydia Bernstein PA-C [address] [facility] [address] [place] [address] Assigned PCP 10/01/21 10/21/21 Rosa Maria Love CHW Community Health Worker 10/06/21 07/11/22 [place] [address] [address] [facility] [address] [place] [address] Assigned Musculoskeletal Provider 10/15/21 04/26/23 Paula Reza MD INA[place]IVE IN [place] 02/02/2024 Assigned PCP 10/22/21 12/23/21 Keerthi Miner APRN WOOD BARREL RECONDITIONER [address] [place] [address] Assigned Heart and Vascular Provider 10/08/21 02/10/22 Shahida Sutton APRN WOOD BARREL RECONDITIONER Assigned PCP 12/24/21 03/24/22 Porsha Michaels APRN WOOD BARREL RECONDITIONER [address] [place] [address] Assigned Heart and Vascular Provider 02/11/22 05/12/22 Paula Reza MD [place]CTIVE IN [place] 02/02/2024 Assigned PCP 03/25/22 04/07/22 Shahida Sutton APRN WOOD BARREL RECONDITIONER [address] [place] [address] Assigned PCP 04/08/22 06/30/22 Daylin Ludwig, EP [facility] [address] [place] [address] Cardiac Rehabilitation Therapist 05/16/23 Laurel Velasquez MD [address] [place] [address] Assigned Heart and Vascular Provider 05/13/22 06/30/22 Daylin Ludwig, MIKI [facility] [address] [place] [address] Cardiac Rehabilitation Therapist 06/08/22 06/09/23 Paula Reza MD INACTIVE IN [place] 02/02/2024 Assigned PCP 07/01/22 07/07/22 Porsha Michaels APRN WOOD BARREL RECONDITIONER [address] [place] [address] Assigned Heart and Vascular Provider 07/01/22 07/07/22 Laurel Velasquez MD [address] [place] [address] Assigned Heart and Vascular Provider 07/08/22 08/04/22 Shahida Sutton APRN WOOD BARREL RECONDITIONER Assigned PCP 07/08/22 09/08/22 Marilin Montaño, WOOD BARREL RECONDITIONER [address] [place] [address] Assigned Heart and Vascular Provider 08/05/22 02/24/24 Esha Dewitt MD [address] [place] [address] Gastroenterology 09/06/22 Heather Mosquera MD [address] [place] [address] Internal Medicine 09/06/22 Paula Reza MD INACTIVE IN [place] 02/02/2024 Assigned PCP 09/09/22 01/05/23 Esha Dewitt MD [address] [address] Assigned Gastroenterology Provider 09/23/22 04/26/24 Valdo Escamilla PA-C [address] [place] [address] Assigned Neuroscience Provider 09/30/22 04/26/24 Nohelia Abarca PA-C [address] [place] [address] Physician Land Leveler Gastroenterology 10/03/22 Heather Mosquera MD [address] [place] [address] Assigned PCP 01/06/23 Fawad York MD [address] [place], [place] [address] Assigned Musculoskeletal Provider 04/27/23 06/25/23 documented as of this encounter
--- OUTSIDE RECORDS SUMMARY | 2024-11-02 15:17 | XMS_ITS | Encounter Summary ---
Author Organization [place] Address [address] [place] [address] Care Team Providers Care Chip Loft Worker Name Role Phone Dixon Carson MD Primary Care Provider Unavailable Mingo Aldana MD Primary Car e Provider HermanShahida APRN MOLD HOLDER Primary Care Provi ford Unavailable Herman, Shahida Cummings APRN MOLD HOLDER Unavailable Un available Herman, Shahida Cummings APRN MOLD HOLDER Unavailable Un available Carolynn Ramon RN Unavailable [phone] Augustine Callaway MD Unavailable Brady Lion MD Unavailable Un available Nima FranceC Unavailable [phone] Camille Chandler PA-C Unavailable [phone] Anabela Barakat APRN MOLD HOLDER Unavailable Nima FranceC Unavailable [phone] Basilio Morillo DO Unavailable [phone] Fawad York MD Unavailable [phone] Roopa Almonte MD Unavailable [phone] Augustine Callaway MD Unavailable Maryse Burton PA-C Unavailable Marquita Starkey MD Unavailable [phone] Roopa Almonte MD Unavailable [phone] Griffin Joshi MD Unavailable Rina Magallon RN Unavailable [phone] Paula Reza MD Primary Care Provider UnavailGriffin Youssef MD Unavailable Roopa Almonte MD Unavailable [phone] MarciaBasilio win Unavailable Lydia Bernstein PA-C Unavailable Rosa Maria Love Unavailable [phone] Augustine Callaway MD Unavailable Paula Reza MD Unavailable Unavailable Keerthi Miner APRN MOLD HOLDER Unavailable Herman, Shahida Cummings APRN MOLD HOLDER Unavailable Un available Porsha Michaels APRN MOLD HOLDER Unavailable [phone] Paula Reza MD Unavailable Unavailable HermanShahida huerta APRN MOLD HOLDER Unavailable Un available Daylin Ludwig Unavailable [phone] Laurel Velasquez MD Unavailable [phone] Daylin Ludwig Unavailable [phone] Paula Reza MD Unavailable Unavailable Porsha Michaels APRN MOLD HOLDER Unavailable [phone] Laurel Velasquez MD Unavailable [phone] Shahida Sutton APRN MOLD HOLDER Unavailable Un available Marilin Montaño MOLD HOLDER Unavailable Esha Dewitt MD Unavailable [phone] Heather Mosquera MD Unavailable [phone] Paula Reza MD Unavailable Unavailable Esha Dewitt MD Unavailable [phone] Andi Valdo Desouza PA-C Unavailable [phone] Nohelia Abarca PA-C Unavailable [phone] Heather Mosquera MD Unavailable [phone] Fawad York MD Unavailable [phone] Reason for Visit * Reason Onset Date Comments Refill Request 03/09/2009 Encounter Details Date Type Department Care Team (Late st Contact Info) Description 03/09/2009 MyC Refill [address] [address] Dixon Carson MD XXX HOSPITALIST/ED DOCTOR XXX Refill Request Social History Tobacco Use Types Packs/Day Years Used Date Smoking Tobacco: Former Cigarettes 0.5 25 1 - 12/09/2006 Pipe Cigars Comments:social smoker Alcohol Use Standard Drinks/Week Comments Yes 0 (1 standard drink = 0.6 oz pur e alcohol) 2 drinks/ week Sex and Gender Information Value Date Recorded Sex Assigned at Male 09/20/2020 8:37 AM CDT Legal Sex Male 3:40 AM AWARD CLERK Gender Identity Male 09/20/2020 8:37 AM CDT Sexual Orientation Straight 09/20/2020 8: 37 AM CDT documented as of this encounter Miscellaneous Notes * Telephone Encounter - Brigida Hyatt - 03/09/2009 3:29 PM CST Documentation of tapering is pending. Pt states he was instructed to take 4qam,3qpm x1 week, then 3bid x1 week, then 2 bid. Will route to [place] for signing. Brigida Hyatt RN D CLERK * Telephone Encounter - Brigida Hyatt - 03/09/2009 2:57 [facility] Terrell would like a refill of the following medications: TOPAMAX 25 MG OR TABS [Dixon Carson MD] Preferred pharmacy: [facility] Comment: I called this in to [facility] over the weekend, but at the time I didn't realize I didn't have any refills. In any case, I am now completely out and haven't heard anything and hope to get this approved as soon as possible D CLERK documented in this encounter Plan of Treatment Not on file documented as of this encounter Visit Diagnoses Diagnosis Migraine headaches- Primary Migraine, unspecified, without mention of intractable migraine without mention of status migrainosus documented in this encounter Additional Health Concerns Infection Onset Date Last Indicated Resolved Time Rule Out COVID-19 02/15/2020 02/15/2020 02/16/2020 2:32 PM AWARD CLERK Rule Out COVID-19 01/05/2021 01/05/2021 01/06/2021 12:57 PM CDT ESBL 01/05/2021 01/05/2021 Rule Out COVID-19 06/30/2021 06/30/2021 07/01/2021 9:34 AM CDT Rule Out COVID-19 07/25/2021 07/25/2021 07/25/2021 8:02 PM CDT documented as of this encounter Care Teams Chip Loft Worker Relationship Specialty Start Date End Date Dixon Carson MD PCP - General 08/10/03 07/21/09 Mingo Aldana MD PCP - General Family Practice 07/22/09 07/12/14 Shahida Sutton APRN MOLD HOLDER PCP - General Nurse Practitioner 08/17/14 08/04/21 Shahida Sutton APRN MOLD HOLDER PCP - Assigned PCP 07/12/14 05/07/18 Paula Reza MD PCP - General Internal Medicine 08/05/21 Shahida Sutton APRN MOLD HOLDER Assigned PCP 07/12/14 09/30/21 Carolynn Ramon RN Personal Advocate & Liaison (PAL) 12/17/18 08/07/21 [place] [address] [address] [address] [place] [address] Assigned Musculoskeletal Provider 12/26/19 08/21/20 Brady Lion MD Assigned Heart and Vascular Provider 12/26/19 08/14/20 Nima France PA-C [address] [facility] [address] [facility] [address] [place], [place] [address] Assigned Surgical Provider 05/19/20 08/21/20 Camille Chandler PA-C [address] [facility] [address] [place] [address] Assigned Neuroscience Provider 05/19/20 09/14/20 Anabela Barakat APRN CNP [address] [place] [address] Assigned Heart and Vascular Provider 08/15/20 08/05/21 Nima France PA-C [address] [address] Assigned Musculoskeletal Provider 08/22/20 11/13/20 [place] [address] [facility] [place] [address] Assigned Musculoskeletal Provider 11/14/20 12/04/20 Fawad York MD [address] [place] [address] Assigned Musculoskeletal Provider 12/05/20 02/05/21 Roopa Almonte MD [address] [facility] 200 [place] [address] Endocrinology, Diabetes, and Metabolism 01/19/21 [place] [address] [facility] [address] [place] [address] Assigned Musculoskeletal Provider 02/06/21 09/16/21 Maryse Burton PA-C [address] [place] [address] Physician Motion Picture Narrator Dermatology 04/14/21 Marquita Starkey MD [address] [facility] 200 [place] [address] Internal Medicine 05/06/21 05/06/21 Roopa Almonte MD [address] [facility] [address] [place] [address] Hospitalist Endocrinology, Diabetes, and Metabolism 05/30/21 Griffin Joshi MD [address] [facility] [address] [place] [address] Cardiovascular Disease 07/25/21 Rina Magallon, RN Lead Commercial Attache 07/29/21 07/11/22 Griffin Joshi MD [address] [facility] [address] [place] [address] Assigned Heart and Vascular Provider 08/06/21 10/07/21 Roopa Almonte MD [address] [place] [address] 200 [place] [address] Assigned Endocrinology Provider 09/10/21 02/24/24 [place] [address] [facility] [place] [address] Assigned Musculoskeletal Provider 09/17/21 10/14/21 Lydia Bernstein PA-C [address] [place] [address] Assigned PCP 10/01/21 10/21/21 Rosa Maria Love Cristina Community Health Worker 10/06/21 [place] [address] [facility] [address] [place] [address] Assigned Musculoskeletal Provider 10/15/21 04/26/23 Paula Reza MD INACTIVE IN [place] 02/02/2024 Assigned PCP 10/22/21 12/23/21 Keerthi Miner APRN MOLD HOLDER [address] [place] [address] Assigned Heart and Vascular Provider 10/08/21 02/10/22 Shahida Sutton APRN MOLD HOLDER Assigned PCP 12/24/21 03/24/22 Porsha Michaels APRN MOLD HOLDER [address] [place] [address] Assigned Heart and Vascular Provider 02/11/22 05/12/22 Paula Reza MD INACTIVE IN [place] 02/02/2024 Assigned PCP 03/25/22 04/07/22 Shahida Sutton, DUANE MOLD HOLDER [address] [place] [address] Assigned PCP 04/08/22 06/30/22 Daylin Ludwig, EP [facility] [address] [place] [address] Cardiac Rehabilitation Therapist 05/16/23 Laurel Velasquez MD [address] [place] [address] Assigned Heart and Vascular Provider 05/13/22 06/30/22 Daylin Ludwig, EP [facility] [address] [place] [address] Cardiac Rehabilitation Therapist 06/08/22 06/09/23 Paula Reza MD INACTIVE IN [place] 02/02/2024 Assigned PCP 07/01/22 07/07/22 Porsha Michaels APRN MOLD HOLDER [address] [place] [address] Assigned Heart and Vascular Provider 07/01/22 07/07/22 Laurel Velasquez MD [address] [place] [address] Assigned Heart and Vascular Provider 07/08/22 08/04/22 Shahida Sutton APRN MOLD HOLDER Assigned PCP 07/08/22 09/08/22 Marilin Montaño, MOLD HOLDER [address] [place] [address] Assigned Heart and Vascular Provider 08/05/22 02/24/24 Esha Dewitt MD [address] [facility] [address] [place] [address] Gastroenterology 09/06/22 Heather Mosquera MD [address] [place] [address] Internal Medicine 09/06/22 Paula Reza MD INACTIVE IN [place] 02/02/2024 Assigned PCP 09/09/22 01/05/23 Esha Dewitt MD [address] [address] Assigned Gastroenterology Provider 09/23/22 04/26/24 Valdo Escamilla PA-C [address] [place] [address] Assigned Neuroscience Provider 09/30/22 04/26/24 Nohelia Abarca PA-C [address] [place] [address] Physician Motion Picture Narrator Gastroenterology 10/03/22 Heather Mosquera MD [address] [place] [address] Assigned PCP 01/06/23 Fawad York MD [address] [place] [address] Assigned Musculoskeletal Provider 04/27/23 06/25/23 documented as of this encounter
--- OUTSIDE RECORDS SUMMARY | 2024-11-02 15:18 | XMS_ITS | Encounter Summary ---
Author Organization [facility] Address [address] [place] [address] Care Team Providers Care Global Implementation Manager Name Role Phone Mingo Aldana MD Primary Car e Provider HermanShahida APRN PERSONAL COMPUTER SPECIALIST Primary Care Provi ford Unavailable Herman, Shahida Cummings APRN PERSONAL COMPUTER SPECIALIST Unavailable Un available Herman, Shahida Cummings APRN PERSONAL COMPUTER SPECIALIST Unavailable Un available Carolynn Ramon RN Unavailable [phone] Augustine Callaway MD Unavailable Brady Lion MD Unavailable Un available Nima FranceC Unavailable [phone] Camille Chandler-C Unavailable [phone] Anabela Barakat APRN PERSONAL COMPUTER SPECIALIST Unavailable Nima FranceC Unavailable [phone] Basilio Morillo DO Unavailable [phone] Fawad York MD Unavailable [phone] Roopa Almonte MD Unavailable [phone] Augustine Callaway MD Unavailable Maryse Burton PA-C Unavailable [phone] Marquita Starkey MD Unavailable [phone] Roopa Almonte MD Unavailable [phone] Griffin Joshi MD Unavailable Rina Magallon RN Unavailable [phone] Paula Reza MD Primary Care Provider UnavailGriffin Youssef MD Unavailable Roopa Almonte MD Unavailable [phone] [facility] Basilio Naik Unavailable Lydia Bernstein PA-C Unavailable Rosa Maria Love Unavailable [phone] Augustine Callaway MD Unavailable Paula Reza MD Unavailable Unavailable Keerthi Miner APRN PERSONAL COMPUTER SPECIALIST Unavailable [phone] Herman, Shahida Cummings APRN PERSONAL COMPUTER SPECIALIST Unavailable Un available Porsha Michaels APRN PERSONAL COMPUTER SPECIALIST Unavailable [phone] Paula Reza MD Unavailable Unavailable Herman, Shahida Cummings APRN PERSONAL COMPUTER SPECIALIST Unavailable Un available Daylin Ludwig Unavailable [phone] Laurel Velasquez MD Unavailable [phone] Daylin Ludwig Unavailable [phone] Paula Reza MD Unavailable Unavailable Porsha Michaels APRN PERSONAL COMPUTER SPECIALIST Unavailable [phone] Laurel Velasquez MD Unavailable [phone] Shahida Sutton APRN PERSONAL COMPUTER SPECIALIST Unavailable Un available Marilin Montaño PERSONAL COMPUTER SPECIALIST Unavailable [phone] Esha Dewitt MD Unavailable [phone] Heather Mosquera MD Unavailable [phone] Paula Reza MD Unavailable Unavailable Esha Dewitt MD Unavailable [phone] Valdo Escamilla PA-C Unavailable Nohelia Abarca PA-C Unavailable [phone] Heather Mosquera MD Unavailable Fawad York MD Unavailable Encounter Details Date Type Department Care Team (Late st Contact Info) Description 06/15/2010 MyC Medical Advice [facility] [id number] [place] [address] [phone] [place] Borjas [place] [id number] [place] [id number] Social History Tobacco Use Types Packs/Day Years Used Date Smoking Tobacco: Former Cigarettes 0.5 25 1 - 12/09/2006 Cigars Comments:occasionally Alcohol Use Standard Drinks/Week Comments Yes 0 (1 standard drink = 0.6 oz pur e alcohol) Very Occasionally Sex and Gender Information Value Date Recorded Sex Assigned at Male 09/20/2020 8:37 AM CDT Legal 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 Gender Identity Male 09/20/2020 8:37 AM CDT Sexual Orientation Straight 09/20/2020 8: 37 AM CDT documented as of this encounter Plan of Treatment Not on file documented as of this encounter Visit Diagnoses Not on filedocumented in this encounter Additional Health Concerns Infection Onset Date Last Indicated Resolved Time Rule Out COVID-19 02/15/2020 02/15/2020 02/16/2020 2:32 PM SENIOR QUALITY CONTROL INSPECTOR Rule Out COVID-19 01/05/2021 01/05/2021 01/06/2021 12:57 PM CDT ESBL 01/05/2021 01/05/2021 Rule Out COVID-19 06/30/2021 06/30/2021 07/01/2021 9:34 AM CDT Rule Out COVID-19 07/25/2021 07/25/2021 07/25/2021 8:02 PM CDT documented as of this encounter Care Teams Global Implementation Manager Relationship Specialty Start Date End Date Katya Mingo Bimal Celestin MD PCP - General Family Practice 07/22/09 07/12/14 Shahida Sutton APRN PERSONAL COMPUTER SPECIALIST PCP - General Nurse Practitioner 08/17/14 08/04/21 Shahida Sutton APRN PERSONAL COMPUTER SPECIALIST PCP - Assigned PCP 07/12/14 05/07/18 Paula Reza MD PCP - General Internal Medicine 08/05/21 Shahida Sutton APRN PERSONAL COMPUTER SPECIALIST Assigned PCP 07/12/14 09/30/21 Carolynn Ramon, KASIE Personal Advocate & Liaison (PAL) 12/17/18 08/07/21 [place] [address] [place] [address] Assigned Musculoskeletal Provider 12/26/19 08/21/20 Brady Lion MD Assigned Heart and Vascular Provider 12/26/19 08/14/20 Nima France PA-C [address] [place] [id number] Assigned Surgical Provider 05/19/20 08/21/20 Camille Chandler PA-C [address] [place] [id number] Assigned Neuroscience Provider 05/19/20 09/14/20 Anabela Barakat APRN PERSONAL COMPUTER SPECIALIST [address] [place] [address] Assigned Heart and Vascular Provider 08/15/20 08/05/21 Nima France PA-C [address] [facility] [address] [place] [address] Assigned Musculoskeletal Provider 08/22/20 11/13/20 [place] [address] [place] [address] Assigned Musculoskeletal Provider 11/14/20 12/04/20 Fawad York MD [address] [place] [address] Assigned Musculoskeletal Provider 12/05/20 02/05/21 Roopa Almonte MD [address] [facility] 200 [place] [address] Endocrinology, Diabetes, and Metabolism 01/19/21 [place] [address] [facility] [address] [place] [address] Assigned Musculoskeletal Provider 02/06/21 09/16/21 Maryse Burton PA-C [address] [place] [address] Physician Assayer Helper Dermatology 04/14/21 Marquita Starkey MD [address] [facility] [address] [place], [place] [address] Internal Medicine 05/06/21 05/06/21 Roopa Almonte MD [address] [facility] 200 [place] [address] Hospitalist Endocrinology, Diabetes, and Metabolism 05/30/21 Griffin Joshi MD [address] [facility] [address] [place] [address] Cardiovascular Disease 07/25/21 Rina Magallon, RN Lead Trades Helper 07/29/21 07/11/22 Griffin Joshi MD [address] [facility] [address] [place] [address] Assigned Heart and Vascular Provider 08/06/21 10/07/21 Roopa Almonte MD [address] [facility] 200 [place], [place] [address] Assigned Endocrinology Provider 09/10/21 02/24/24 [place] [address] [facility] [place] [address] Assigned Musculoskeletal Provider 09/17/21 10/14/21 Lydia Bernstein PA-C [address] [facility] [address] [place] [address] Assigned PCP 10/01/21 10/21/21 Rosa Maria Love CHW Community Health Worker 10/06/21 [place] [address] [facility] [address] [place] [address] Assigned Musculoskeletal Provider 10/15/21 04/26/23 Paula Reza MD INACTIVE IN [place] 02/02/2024 Assigned PCP 10/22/21 12/23/21 Keerthi Minre INSTRUMENT TECHNICIAN HELPER PERSONAL COMPUTER SPECIALIST [address] [place] [address] Assigned Heart and Vascular Provider 10/08/21 02/10/22 Shahida Sutton INSTRUMENT TECHNICIAN HELPER PERSONAL COMPUTER SPECIALIST Assigned PCP 12/24/21 03/24/22 Porsha Michaels INSTRUMENT TECHNICIAN HELPER PERSONAL COMPUTER SPECIALIST [address] [place] [address] Assigned Heart and Vascular Provider 02/11/22 05/12/22 Paula Reza MD INACTIVE IN [place] 02/02/2024 Assigned PCP 03/25/22 04/07/22 Shahida Sutton INSTRUMENT TECHNICIAN HELPER PERSONAL COMPUTER SPECIALIST [address] [place] [address] Assigned PCP 04/08/22 06/30/22 Daylin Ludwig, EP [facility] [address] [place] [address] Cardiac Rehabilitation Therapist 05/16/23 Laurel Velasquez MD [address] [place] [address] Assigned Heart and Vascular Provider 05/13/22 06/30/22 Daylin Ludwig, MIKI [facility] [address] [place] [address] Cardiac Rehabilitation Therapist 06/08/22 06/09/23 Paula Reza MD INACTIVE IN [place] 02/02/2024 Assigned PCP 07/01/22 07/07/22 Porsha Michaels APRN PERSONAL COMPUTER SPECIALIST [address] [place] [address] Assigned Heart and Vascular Provider 07/01/22 07/07/22 Laurel Velasquez MD [address] [place] [address] Assigned Heart and Vascular Provider 07/08/22 08/04/22 Shahida Sutton APRN PERSONAL COMPUTER SPECIALIST Assigned PCP 07/08/22 09/08/22 Marilin Montaño PERSONAL COMPUTER SPECIALIST [address] [place] [address] Assigned Heart and Vascular Provider 08/05/22 02/24/24 Esha Dewitt MD [address] [address] Gastroenterology 09/06/22 Heather Mosquera MD [address] [place] [address] Internal Medicine 09/06/22 Paula Reza MD INACTIVE IN [place] 02/02/2024 Assigned PCP 09/09/22 01/05/23 Esha Dewitt MD [address] [address] Assigned Gastroenterology Provider 09/23/22 04/26/24 Valdo Escamilla PA-C [address] [place], [place] [address] Assigned Neuroscience Provider 09/30/22 04/26/24 Nohelia Abarca PA-C [address] [place] [address] Physician Assayer Helper Gastroenterology 10/03/22 Heather Mosquera MD [address] [place] [address] Assigned PCP 01/06/23 Fawad York MD [address] [place], [place] [address] Assigned Musculoskeletal Provider 04/27/23 06/25/23 documented as of this encounter
--- OUTSIDE RECORDS SUMMARY | 2024-11-02 15:18 | XMS_ITS | Encounter Summary ---
Author Organization [facility] Address [address] [place] [address] Care Team Providers Care Hydropulper Name Role Phone HermanShahida huerta APRN VISITOR SERVICES ASSISTANT Primary Care Provi ford Unavailable Herman, Shahida Cummings APRN VISITOR SERVICES ASSISTANT Unavailable Un available Herman, Shahida Cummings APRN VISITOR SERVICES ASSISTANT Unavailable Un available Carolynn Ramon RN Unavailable [phone] Augustine Callaway MD Unavailable Brady Lion MD Unavailable Un available Nima France PA-C Unavailable [phone] Camille Chandler PA-C Unavailable [phone] Anabela Barakat APRN VISITOR SERVICES ASSISTANT Unavailable Nima France PA-C Unavailable [phone] Basilio Morillo DO Unavailable [phone] Fawad York MD Unavailable [phone] Roopa Almonte MD Unavailable [phone] Augustine Callaway MD Unavailable Maryse Burton PA-C Unavailable [phone] Marquita Starkey MD Unavailable [phone] Roopa Almonte MD Unavailable [phone] Griffin Joshi MD Unavailable Rina Magallon RN Unavailable [phone] Paula Reza MD Primary Care Provider UnavailGriffin Youssef MD Unavailable Roopa Almonte MD Unavailable [phone] [facility] Unavailable Ldyia Bernstein-C Unavailable Rosa Maria Love Unavailable [phone] Augustine Callaway MD Unavailable Paula Reza MD Unavailable Unavailable Keerthi Miner APRN VISITOR SERVICES ASSISTANT Unavailable [phone] Herman, Shahida Cummings APRN VISITOR SERVICES ASSISTANT Unavailable Un available Porsha Michaels APRN VISITOR SERVICES ASSISTANT Unavailable [phone] Paula Reza MD Unavailable Unavailable HermanShahida APRN VISITOR SERVICES ASSISTANT Unavailable Un available Daylin Ludwig Unavailable [phone] Laurel Velasquez MD Unavailable [phone] Daylin Ludwig Unavailable [phone] Paula Reza MD Unavailable Unavailable Porsha Michaels APRN VISITOR SERVICES ASSISTANT Unavailable [phone] Laurel Velasquez MD Unavailable [phone] HermanShahida huerta APRN VISITOR SERVICES ASSISTANT Unavailable Un available Marilin Montaño VISITOR SERVICES ASSISTANT Unavailable [phone] Esha Dewitt MD Unavailable [phone] Heather Mosquera MD Unavailable [phone] Paula Reza MD Unavailable Unavailable Esha Dewitt MD Unavailable [phone] Valdo Escamilla PA-C Unavailable [phone] Nohelia Abarca PA-C Unavailable [phone] Heather Mosquera MD Unavailable [phone] Fawad York MD Unavailable Encounter Details Date Type Department Care Team (Late st Contact Info) Description 08/01/2016 MyC Medical Advice [address] [address] Matilde Allen, PATROL DEPUTY SHERIFF Social History Tobacco Use Types Packs/Day Years Used Date Smoking Tobacco: Former Cigarettes Q uit: 12/09/2006 Cigars Smokeless Tobacco: Never Alcohol Use Standard Drinks/Week Comments Yes 0 (1 standard drink = 0.6 oz pur e alcohol) Very Occasionally Sex and Gender Information Value Date Recorded Sex Assigned at Male 09/20/2020 8:37 AM CDT Legal 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 Gender Identity Male 09/20/2020 8:37 AM CDT Sexual Orientation Straight 09/20/2020 8: 37 AM CDT 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 Not on file Not on file Not on jabier e documented as of this encounter Plan of Treatment Not on file documented as of this encounter Visit Diagnoses Not on filedocumented in this encounter Additional Health Concerns Infection Onset Date Last Indicated Resolved Time Rule Out COVID-19 02/15/2020 02/15/2020 02/16/2020 2:32 PM SAP ABAP DEVELOPER Rule Out COVID-19 01/05/2021 01/05/2021 01/06/2021 12:57 PM CDT ESBL 01/05/2021 01/05/2021 Rule Out COVID-19 06/30/2021 06/30/2021 07/01/2021 9:34 AM CDT Rule Out COVID-19 07/25/2021 07/25/2021 07/25/2021 8:02 PM CDT Assessment Noted Time PHQ-9 Depression Total Score: 5 05/27/19 17 7:07 AM CDT documented as of this encounter Care Teams Hydropulper Relationship Specialty Start Date End Date Shahida Sutton APRN VISITOR SERVICES ASSISTANT PCP - General Nurse Practitioner 08/17/14 08/04/21 Shahida Sutton APRN VISITOR SERVICES ASSISTANT PCP - Assigned PCP 07/12/14 05/07/18 Paula Reza MD PCP - General Internal Medicine 08/05/21 Shahida Sutton APRN VISITOR SERVICES ASSISTANT Assigned PCP 07/12/14 09/30/21 Carolynn Ramon, KASIE Personal Advocate & Liaison (PAL) 12/17/18 08/07/21 [place] [address] [place] [address] Assigned Musculoskeletal Provider 12/26/19 08/21/20 Brady Lion MD Assigned Heart and Vascular Provider 12/26/19 08/14/20 Nima France PA-C [address] [facility] [address] [place] [address] Assigned Surgical Provider 05/19/20 08/21/20 Camille Chandler PA-C [address] [facility] [address] [place] [address] Assigned Neuroscience Provider 05/19/20 09/14/20 Anabela Barakat APRN VISITOR SERVICES ASSISTANT [address] [place] [address] Assigned Heart and Vascular Provider 08/15/20 08/05/21 Nima France PA-C [address] [facility] [address] [place] [address] Assigned Musculoskeletal Provider 08/22/20 11/13/20 [place] [address] [facility] [place] [address] Assigned Musculoskeletal Provider 11/14/20 12/04/20 Fawad York MD [address]09 [place] [address] Assigned Musculoskeletal Provider 12/05/20 02/05/21 Roopa Almonte MD [address] [facility] 200 [place] [address] Endocrinology, Diabetes, and Metabolism 01/19/21 [place] [address] [facility] 300 [place] [address] Assigned Musculoskeletal Provider 02/06/21 09/16/21 Maryse Burton PAAna MariaC [address] [place] [address] Physician Perennial House Manager Dermatology 04/14/21 Marquita Starkey MD [address] [facility] 200 [place] [address] Internal Medicine 05/06/21 05/06/21 Roopa Almonte MD [address] [facility] 200 [place] [address] Hospitalist Endocrinology, Diabetes, and Metabolism 05/30/21 Griffin Joshi MD [address] [facility] [address] [place] [address] Cardiovascular Disease 07/25/21 Rina Magallon, RN Lead Child Care 07/29/21 07/11/22 Griffin Joshi MD [address] [place] [address] Assigned Heart and Vascular Provider 08/06/21 10/07/21 Roopa Almonte MD [address] [facility] [address] [place], [place] [address] Assigned Endocrinology Provider 09/10/21 02/24/24 [place] [address] [facility] [place] [address] Assigned Musculoskeletal Provider 09/17/21 10/14/21 Lydia Bernstein PA-C [address] [place] [address] Assigned PCP 10/01/21 10/21/21 Rosa Maria Love [facility] Community Health Worker 10/06/21 07/11/22 [place] [address] [facility] [address] [place] [address] Assigned Musculoskeletal Provider 10/15/21 04/26/23 Palua Reza MD INACTIVE IN [place] 02/02/2024 Assigned PCP 10/22/21 12/23/21 Keerthi Miner, WINDOWS TECHNICAL SPECIALIST VISITOR SERVICES ASSISTANT [address] [place] [address] Assigned Heart and Vascular Provider 10/08/21 02/10/22 Shahida Sutton APRN VISITOR SERVICES ASSISTANT Assigned PCP 12/24/21 03/24/22 Porsha Michaels APRN VISITOR SERVICES ASSISTANT [address] [place] [address] Assigned Heart and Vascular Provider 02/11/22 05/12/22 Paula Reza MD [place]IVE IN [place] 02/02/2024 Assigned PCP 03/25/22 04/07/22 Shahida Sutton APRN VISITOR SERVICES ASSISTANT [address] [place] [address] Assigned PCP 04/08/22 06/30/22 Daylin Ludwig, MIKI [facility] [address] [place] [address] Cardiac Rehabilitation Therapist 05/16/23 Laurel Velasquez MD [address] [place] [address] Assigned Heart and Vascular Provider 05/13/22 06/30/22 Daylin Ludwig, EP [facility] [address] [place] [address] Cardiac Rehabilitation Therapist 06/08/22 06/09/23 Paula Reza MD [place]CTIVE IN [place] 02/02/2024 Assigned PCP 07/01/22 07/07/22 Porsha Michaels APRN VISITOR SERVICES ASSISTANT [address] [place] [address] Assigned Heart and Vascular Provider 07/01/22 07/07/22 Laurel Velasquez MD [address] [place] [address] Assigned Heart and Vascular Provider 07/08/22 08/04/22 Shahida Sutton, DUANE VISITOR SERVICES ASSISTANT Assigned PCP 07/08/22 09/08/22 Marilin Montaño, VISITOR SERVICES ASSISTANT [address] [place] [address] Assigned Heart and Vascular Provider 08/05/22 02/24/24 Esha Dewitt MD [address] [facility] [address] [place] [address] Gastroenterology 09/06/22 Heather Mosquera MD [address] [place] [address] Internal Medicine 09/06/22 Paula Reza MD [place]IVE [place] 02/02/2024 Assigned PCP 09/09/22 01/05/23 Esha Dewitt MD 420 [facility] 36 [place] [address] Assigned Gastroenterology Provider 09/23/22 04/26/24 Valdo Escamilla PA-C [address] [place] [address] Assigned Neuroscience Provider 09/30/22 04/26/24 Nohelia Abarca PA-C [address] [place] [address] Physician Perennial House Manager Gastroenterology 10/03/22 Heather Mosquera MD [address] [place] [address] Assigned PCP 01/06/23 Fawad York MD [address] [place], [place] [address] Assigned Musculoskeletal Provider 04/27/23 06/25/23 documented as of this encounter
--- OUTSIDE RECORDS SUMMARY | 2024-11-02 15:18 | XMS_ITS | Encounter Summary ---
Author Organization [place] Address [address] [place] [address] Care Team Providers Care Manager Trust Name Role Phone Mingo Aldana MD Primary Car e Provider HermanShahida APRN HAND SHOES SEWER Primary Care Provi fodr Unavailable Herman, Shahida Cummings APRN HAND SHOES SEWER Unavailable Un available Herman, Shahida Cummings APRN HAND SHOES SEWER Unavailable Un available Carolynn Ramon RN Unavailable [phone] Augustine Callaway MD Unavailable Brady Lion MD Unavailable Un available Nima FranceC Unavailable [phone] Camille Chandler-C Unavailable [phone] Anabela Barakat APRN HAND SHOES SEWER Unavailable Nima FranceC Unavailable [phone] Basilio Morillo DO Unavailable [phone] Fawad York MD Unavailable [phone] Roopa Almonte MD Unavailable [phone] Augustine Callaway MD Unavailable Maryse Burton PA-C Unavailable [phone] Marquita Starkey MD Unavailable [phone] Roopa Almonte MD Unavailable [phone] Griffin Joshi MD Unavailable Rina Magallon RN Unavailable [phone] Paula Reza MD Primary Care Provider UnavailGriffin Youssef MD Unavailable Roopa Almonte MD Unavailable [phone] [facility] Basilio Naik Unavailable Lydia Bernstein PA-C Unavailable Rosa Maria Love Unavailable [phone] Augustine Callaway MD Unavailable Paula Reza MD Unavailable Unavailable Keerthi Miner APRN HAND SHOES SEWER Unavailable [phone] Herman, Shahida Cummings APRN HAND SHOES SEWER Unavailable Un available Porsha Michaels APRN HAND SHOES SEWER Unavailable [phone] Paula Reza MD Unavailable Unavailable Herman, Shahida Cummings APRN HAND SHOES SEWER Unavailable Un available Daylin Ludwig Unavailable [phone] Laurel Velasquez MD Unavailable [phone] Daylin Ludwig Unavailable [phone] Paula Reza MD Unavailable Unavailable Porsha Michaels APRN HAND SHOES SEWER Unavailable [phone] Laurel Velasquez MD Unavailable [phone] Shahida Sutton APRN HAND SHOES SEWER Unavailable Un available Marilin Montaño HAND SHOES SEWER Unavailable [phone] Esha Dewitt MD Unavailable [phone] Heather Mosquera MD Unavailable [phone] Paula Reza MD Unavailable Unavailable Esha Dewitt MD Unavailable [phone] Valdo Escamilla PA-C Unavailable [phone] Nohelia Abarca PA-C Unavailable [phone] Heather Mosquera MD Unavailable [phone] Fawad York MD Unavailable [phone] Reason for Visit * Reason Onset Date Comments Refill Request 10/19/2009 Encounter Details Date Type Department Care Team (Late st Contact Info) Description 10/19/2009 MyC Refill [address] [address] Mingo Aldana MD [facility] [address] [place] [address] Refill Request Social History Tobacco Use Types [...] AM CDT Legal 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 Gender Identity Male 09/20/2020 8:37 AM CDT Sexual Orientation Straight 09/20/2020 8: 37 AM CDT documented as of this encounter Plan of Treatment Not on file documented as of this encounter Visit Diagnoses Not on filedocumented in this encounter Additional Health Concerns Infection Onset Date Last Indicated Resolved Time Rule Out COVID-19 02/15/2020 02/15/2020 02/16/2020 2:32 PM HEARING OFFICER Rule Out COVID-19 01/05/2021 01/05/2021 01/06/2021 12:57 PM CDT ESBL 01/05/2021 01/05/2021 Rule Out COVID-19 06/30/2021 06/30/2021 07/01/2021 9:34 AM CDT Rule Out COVID-19 07/25/2021 07/25/2021 07/25/2021 8:02 PM CDT documented as of this encounter Care Teams Manager Trust Relationship Specialty Start Date End Date Mingo Aldana MD PCP - General Family Practice 07/22/09 07/12/14 Shahida Sutton APRN HAND SHOES SEWER PCP - General Nurse Practitioner 08/17/14 08/04/21 Shahida Sutton APRN HAND SHOES SEWER PCP - Assigned PCP 07/12/14 05/07/18 Paula Reza MD PCP - General Internal Medicine 08/05/21 Shahida Sutton APRN HAND SHOES SEWER Assigned PCP 07/12/14 09/30/21 Carolynn Ramon RN Personal Advocate & Liaison (PAL) 12/17/18 08/07/21 [place] [address] [place] [address] Assigned Musculoskeletal Provider 12/26/19 08/21/20 Brady Lion MD Assigned Heart and Vascular Provider 12/26/19 08/14/20 Nima France PA-C [address] [place] [address] Assigned Surgical Provider 05/19/20 08/21/20 Camille Chandler PA-C [address] [place] [address] Assigned Neuroscience Provider 05/19/20 09/14/20 Anabela Barakat APRN HAND SHOES SEWER [address] [place] [address] Assigned Heart and Vascular Provider 08/15/20 08/05/21 Nima France PA-C [address] [facility] 450 [place], [place] [address] Assigned Musculoskeletal Provider 08/22/20 11/13/20 [place] [address] [place], [place] [address] Assigned Musculoskeletal Provider 11/14/20 12/04/20 Fawad York MD [address] [place], [place] [address] Assigned Musculoskeletal Provider 12/05/20 02/05/21 Roopa Almonte MD [address] [facility] 200 [place] [address] Endocrinology, Diabetes, and Metabolism 01/19/21 [place] [address] [facility] 300 [place] [address] Assigned Musculoskeletal Provider 02/06/21 09/16/21 Maryse Burton PA-C [address] [place] [address] Physician Perl Developer Dermatology 04/14/21 Marquita Starkey MD [address] [facility] 200 [place], [place] [address] Internal Medicine 05/06/21 05/06/21 Roopa Almonte MD [address] [facility] 200 [place] [address] Hospitalist Endocrinology, Diabetes, and Metabolism 05/30/21 Griffin Joshi MD [address] [place] [address] Cardiovascular Disease 07/25/21 Rina Magallon, RN Lead Bet Taker 07/29/21 07/11/22 Griffin Joshi MD [address] [place] [address] Assigned Heart and Vascular Provider 08/06/21 10/07/21 Roopa Almonte MD [address] [facility] 200 [place], [place] [address] Assigned Endocrinology Provider 09/10/21 02/24/24 [place] [address] [facility] [address] Assigned Musculoskeletal Provider 09/17/21 10/14/21 Lydia Bernstein PA-C [address] [place] [address] Assigned PCP 10/01/21 10/21/21 Rosa Maria Love CHW Community Health Worker 10/06/21 [place] [address] [place] [address] Assigned Musculoskeletal Provider 10/15/21 04/26/23 Paula Re[place] 02/02/2024 Assigned PCP 10/22/21 12/23/21 Keerthi Miner APRN HAND SHOES SEWER [address] [place] [address] Assigned Heart and Vascular Provider 10/08/21 02/10/22 Shahida Sutton APRN HAND SHOES SEWER Assigned PCP 12/24/21 03/24/22 Porsha Michaels APRN HAND SHOES SEWER [address] [place] [address] Assigned Heart and Vascular Provider 02/11/22 05/12/22 Paula Reza MD [place] 02/02/2024 Assigned PCP 03/25/22 04/07/22 Shahida Sutton APRN HAND SHOES SEWER [address] [place] [address] Assigned PCP 04/08/22 06/30/22 Daylin Ludwig, [facility] [address] [place] [address] Cardiac Rehabilitation Therapist 05/16/23 Laurel Velasquez MD [address] [place] [address] Assigned Heart and Vascular Provider 05/13/22 06/30/22 Daylin Ludwig, EP [facility] [address] [place] [address] Cardiac Rehabilitation Therapist 06/08/22 06/09/23 Paula Reza MD [place] 02/02/2024 Assigned PCP 07/01/22 07/07/22 Porsha Mihcaels APRN HAND SHOES SEWER [address] [place] [address] Assigned Heart and Vascular Provider 07/01/22 07/07/22 Laurel Velasquez MD [address] [place] [address] Assigned Heart and Vascular Provider 07/08/22 08/04/22 Shahida Sutton APRN HAND SHOES SEWER Assigned PCP 07/08/22 09/08/22 Marilin Montaño, HAND SHOES SEWER [address] [place] [address] Assigned Heart and Vascular Provider 08/05/22 02/24/24 Esha Dewitt MD [address] [place] [address] Gastroenterology 09/06/22 Heather Mosquera MD [address] [place], [place] [address] Internal Medicine 09/06/22 Paula Reza MD [place] 02/02/2024 Assigned PCP 09/09/22 01/05/23 Esha Dewitt MD [address] [place] [address] 36 [place] [address] Assigned Gastroenterology Provider 09/23/22 04/26/24 Valdo Escamilla PA-C [address] [place] [address] Assigned Neuroscience Provider 09/30/22 04/26/24 Nohelia Abarca PA-C [address] [place] [address] Physician Perl Developer Gastroenterology 10/03/22 Heather Mosquera MD [address] [place] [address] Assigned PCP 01/06/23 Fawad York MD [address] [place] [address] Assigned Musculoskeletal Provider 04/27/23 06/25/23 documented as of this encounter
--- OUTSIDE RECORDS SUMMARY | 2024-11-02 15:18 | XMS_ITS | Encounter Summary ---
Author Organization [facility] Address [address] [place] [address] Care Team Providers Care House Steward/Stewardess Name Role Phone HermanShahida huerta APRN BEHAVIORAL SCIENTIST Primary Care Provi ford Unavailable Herman, Shahida Cummings APRN BEHAVIORAL SCIENTIST Unavailable Un available Herman, Shahida Cummings APRN BEHAVIORAL SCIENTIST Unavailable Un available Carolynn Ramon RN Unavailable [phone] Augustine Callaway MD Unavailable Brady Lion MD Unavailable Un available Nima France PA-C Unavailable [phone] Camille Chandler PA-C Unavailable [phone] Anabela Barakat APRN BEHAVIORAL SCIENTIST Unavailable Nima France PA-C Unavailable [phone] Basilio Morillo DO Unavailable Fawad York MD Unavailable [phone] Roopa Almonte MD Unavailable [phone] Augustine Callaway MD Unavailable Maryse Burton PA-C Unavailable [phone] Marquita Starkey MD Unavailable [phone] Roopa Almnote MD Unavailable [phone] Griffin Joshi MD Unavailable Rina Magallon RN Unavailable [phone] Paula Reza MD Primary Care Provider UnavailGriffin Youssef MD Unavailable Roopa Almonte MD Unavailable [phone] [facility] win Unavailable Lydia Bernstein-C Unavailable Rosa Maria Love Unavailable [phone] Augustine Callaway MD Unavailable Paula Reza MD Unavailable Unavailable Keerthi Miner APRN BEHAVIORAL SCIENTIST Unavailable [phone] Herman, Shahida Cummings APRN BEHAVIORAL SCIENTIST Unavailable Un available Porsha Michaels APRN BEHAVIORAL SCIENTIST Unavailable [phone] Paula Reza MD Unavailable Unavailable HermanShahida APRN BEHAVIORAL SCIENTIST Unavailable Un available Daylin Ludwig Unavailable [phone] Laurel Velasquez MD Unavailable [phone] Daylin Ludwig Unavailable [phone] Paula Reza MD Unavailable Unavailable Porsha Michaels APRN BEHAVIORAL SCIENTIST Unavailable [phone] Laurel Velasquez MD Unavailable [phone] HermanShahida huerta APRN BEHAVIORAL SCIENTIST Unavailable Un available Marilin Montaño BEHAVIORAL SCIENTIST Unavailable [phone] Esha Dewitt MD Unavailable [phone] Heather Mosquera MD Unavailable [phone] Paula Reza MD Unavailable Unavailable Esha Dewitt MD Unavailable [phone] Valdo Escamilla PA-C Unavailable [phone] Nohelia Abarca PA-C Unavailable [phone] Heather Mosquera MD Unavailable Fawad York MD Unavailable [phone] Reason for Visit * Reason Comments Medication Refill GABAPENTIN 300MG MIGUEL CORBIN Encounter Details Date Type Department Care Team (Late st Contact Info) Description 08/21/[address] [address] Shahida Sutton APRN CNP Medication [...] AM CDT 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 RX monitoring program ([place]) reviewed: CHUCK BONER reviewed- no concerns Last Fills: Gabapentin- 07/11/2016, #270; 05/25/2016, #270 [place]- 08/10/2016, #30; 07/11/2016, #120 Adderall- 07/29/2016, #60 06/30/2016, #60 Ambien- 07/28/2016,#30 06/29/2016, #30 [place] profile: [email or web address] Shanon Holliday RN, BSN, PHN [facility] RN * Telephone Encounter - Christie Mays - 08/21/2016 1:28 PM CDT GABAPENTIN 300MG CAPSULES Last Written Prescription Date: 05-25-2016 Last Fill Quantity: 07-11-2016, #270 refills: 1 Last Office Visit with [facility] or [facility] prescribing provider: 06-12-2016 Shahida Sutton. Next 5 appointments (look out 90 days) Sep 19, 2016 8:00 AM CDT Return Visit with Jing Roper APRN [facility] ([facility]) [address] [place] [phone] Sep 20, 2016 10:00 AM CDT Nurse Only with HEALTH VISITOR SERVICES INFORMATION ASSISTANT - REGION 5 [facility] ([facility]) [address] [place] [phone] documented in this encounter Plan of Treatment Not on file documented as of this encounter Visit Diagnoses Diagnosis Other chronic pain documented in this encounter Additional Health Concerns Infection Onset Date Last Indicated Resolved Time Rule Out COVID-19 02/15/2020 02/15/2020 02/16/2020 2:32 PM PACKAGE DELIVERY ROOM SERVICE RUNNER Rule Out COVID-19 01/05/2021 01/05/2021 01/06/2021 12:57 PM CDT ESBL 01/05/2021 01/05/2021 Rule Out COVID-19 06/30/2021 06/30/2021 07/01/2021 9:34 AM CDT Rule Out COVID-19 07/25/2021 07/25/2021 07/25/2021 8:02 PM CDT Assessment Noted Time PHQ-9 Depression Total Score: 5 05/27/19 17 7:07 AM CDT documented as of this encounter Care Teams House Steward/Stewardess Relationship Specialty Start Date End Date Shahida Sutton APRN BEHAVIORAL SCIENTIST PCP - General Nurse Practitioner 08/17/14 08/04/21 Shahida Sutton APRN BEHAVIORAL SCIENTIST PCP - Assigned PCP 07/12/14 05/07/18 Paula Reza MD PCP - General Internal Medicine 08/05/21 Shahida Sutton APRN BEHAVIORAL SCIENTIST Assigned PCP 07/12/14 09/30/21 Carolynn Ramon, KASIE Personal Advocate & Liaison (PAL) 12/17/18 08/07/21 [place] [address] [place] [address] Assigned Musculoskeletal Provider 12/26/19 08/21/20 Brady Lion MD Assigned Heart and Vascular Provider 12/26/19 08/14/20 Nima France PA-C [address] [place] [address] Assigned Surgical Provider 05/19/20 08/21/20 Camille Chandler PA-C [address] [place] [address] Assigned Neuroscience Provider 05/19/20 09/14/20 Anabela Barakat APRN BEHAVIORAL SCIENTIST [address] [place] [address] Assigned Heart and Vascular Provider 08/15/20 08/05/21 Nima France PA-C [address] [place] [address] Assigned Musculoskeletal Provider 08/22/20 11/13/20 [place] [address] [facility] [place] [address] Assigned Musculoskeletal Provider 11/14/20 12/04/20 Fawad York MD [address] [place], [place] [address] Assigned Musculoskeletal Provider 12/05/20 02/05/21 Roopa Almonte MD [address] [place] [address] Endocrinology, Diabetes, and Metabolism 01/19/21 [place] [address] [facility] [address] [place] [address] Assigned Musculoskeletal Provider 02/06/21 09/16/21 Maryse Burton, PA-C [address] [place] [address] Physician Industrial Automation Engineer Dermatology 04/14/21 Marquita Starkey MD [address] [place] [address] Internal Medicine 05/06/21 05/06/21 Roopa Almonte MD [address] [place] [address] Hospitalist Endocrinology, Diabetes, and Metabolism 05/30/21 Griffin Joshi MD [address] [place] [address] Cardiovascular Disease 07/25/21 Rina Magallon, RN Lead Construction Field Engineer 07/29/21 07/11/22 Griffin Joshi MD [address] [facility] [address] [place] [address] Assigned Heart and Vascular Provider 08/06/21 10/07/21 Roopa Almonte MD [address] [facility] [address] [place], [place] [address] Assigned Endocrinology Provider 09/10/21 02/24/24 [place] [address] [facility] [address] Assigned Musculoskeletal Provider 09/17/21 10/14/21 Lydia Bernstein PA-C [address] [facility] [address] [place] [address] Assigned PCP 10/01/21 10/21/21 Rosa Maria Love Cristina Community Health Worker 10/06/21 07/11/22 [place] [address] [facility] [address] [place] [address] Assigned Musculoskeletal Provider 10/15/21 04/26/23 Paual Reza MD [place] 02/02/2024 Assigned PCP 10/22/21 12/23/21 Keerthi Miner APRN BEHAVIORAL SCIENTIST [address] [place] [address] Assigned Heart and Vascular Provider 10/08/21 02/10/22 Shahida Sutton APRN BEHAVIORAL SCIENTIST Assigned PCP 12/24/21 03/24/22 Porsha Michaels APRN BEHAVIORAL SCIENTIST [address] [place] [address] Assigned Heart and Vascular Provider 02/11/22 05/12/22 Paula Reza MD [place] 02/02/2024 Assigned PCP 03/25/22 04/07/22 Shahida Sutton APRN BEHAVIORAL SCIENTIST [address] [place] [address] Assigned PCP 04/08/22 06/30/22 Daylin Ludwig, EP [facility] [address] [place] [address] Cardiac Rehabilitation Therapist 05/16/23 Laurel Velasquez MD [address] [place] [address] Assigned Heart and Vascular Provider 05/13/22 06/30/22 Daylin Ludwig, EP [facility] [address] [place] [address] Cardiac Rehabilitation Therapist 06/08/22 06/09/23 Paula Reza MD [place] 02/02/2024 Assigned PCP 07/01/22 07/07/22 Porsha Michaels, DUANE BEHAVIORAL SCIENTIST [address] [place] [address] Assigned Heart and Vascular Provider 07/01/22 07/07/22 Laurel Velasquez MD [address] [place] [address] Assigned Heart and Vascular Provider 07/08/22 08/04/22 Shahida Sutton, SUPERVISOR DIMENSION WAREHOUSE BEHAVIORAL SCIENTIST Assigned PCP 07/08/22 09/08/22 Marilin Montaño, BEHAVIORAL SCIENTIST [address] [place] [address] Assigned Heart and Vascular Provider 08/05/22 02/24/24 Esha Dewitt MD [address] [facility] 36 [place] [address] Gastroenterology 09/06/22 Heather Mosquera MD [address] [place] [address] Internal Medicine 09/06/22 Paula Reza MD [place] 02/02/2024 Assigned PCP 09/09/22 01/05/23 Esha Dewitt MD [address] [facility] 36 [place] [address] Assigned Gastroenterology Provider 09/23/22 04/26/24 Valdo Escamilla PA-C [address] [place], [place] [address] Assigned Neuroscience Provider 09/30/22 04/26/24 Nohelia Abarca PA-C [address] [place] [address] Physician Industrial Automation Engineer Gastroenterology 10/03/22 Heather Mosquera MD [address] [place] [address] Assigned PCP 01/06/23 Fawad York MD [address] [place], [place] [address] Assigned Musculoskeletal Provider 04/27/23 06/25/23 documented as of this encounter
--- OUTSIDE RECORDS SUMMARY | 2024-11-02 15:18 | XMS_ITS | Encounter Summary ---
Author Organization [facility] Address [address] [place] [address] Care Team Providers Care Cost Engineer Name Role Phone Dixon Carson MD Primary Care Provider Unavailable Mingo Aldana MD Primary Car e Provider HermanShahida APRN NURSE SUBSTANCE ABUSE Primary Care Provi ford Unavailable Herman, Shahida Cummings APRN NURSE SUBSTANCE ABUSE Unavailable Un available Herman, Shahida Cummings APRN NURSE SUBSTANCE ABUSE Unavailable Un available Carolynn Ramon RN Unavailable [phone] Augustine Callaway MD Unavailable Brady Lion MD Unavailable Un available Nima FranceC Unavailable [phone] Camille Chandler PA-C Unavailable [phone] Anabela Barakat APRN NURSE SUBSTANCE ABUSE Unavailable Nima FranceC Unavailable [phone] Basilio Morillo DO Unavailable [phone] Fawad York MD Unavailable [phone] Roopa Almonte MD Unavailable [phone] Augustine Callaway MD Unavailable Maryse Burton PA-C Unavailable Marquita Starkey MD Unavailable [phone] Roopa Almonte MD Unavailable [phone] Griffin Joshi MD Unavailable Rina Magallon RN Unavailable [phone] Paula Reza MD Primary Care Provider UnavailGriffin Youssef MD Unavailable Roopa Almonte MD Unavailable [phone] MarciaBasilio win Unavailable Lydia Bernstein PA-C Unavailable Rosa Maria Love Unavailable [phone] Augustine Callaway MD Unavailable Paula Reza MD Unavailable Unavailable Keerthi Miner APRN NURSE SUBSTANCE ABUSE Unavailable Herman, Shahida Cummings APRN NURSE SUBSTANCE ABUSE Unavailable Un available Porsha Michaels APRN NURSE SUBSTANCE ABUSE Unavailable [phone] Paula Reza MD Unavailable Unavailable HermanShahida huerta APRN NURSE SUBSTANCE ABUSE Unavailable Un available Daylin Ludwig Unavailable [phone] Laurel Velasquez MD Unavailable [phone] Daylin Ludwig Unavailable [phone] Paula Reza MD Unavailable Unavailable Porsha Michaels APRN NURSE SUBSTANCE ABUSE Unavailable [phone] Laurel Velasquez MD Unavailable [phone] Shahida Sutton APRN NURSE SUBSTANCE ABUSE Unavailable Un available Marilin Montaño NURSE SUBSTANCE ABUSE Unavailable Esha Dewitt MD Unavailable Heather Mosquera MD Unavailable [phone] Paula Reza MD Unavailable Unavailable Esha Dewitt MD Unavailable [phone] Valdo Escamilla PA-C Unavailable [phone] Nohelia Abarca PA-C Unavailable [phone] Heather Mosquera MD Unavailable [phone] Fawad [place] MD Unavailable [phone] Reason for Visit * Reason Onset Date Comments Refill Request 07/01/2009 topamax Encounter Details Date Type Department Care Team (Late st Contact Info) Description 07/01/2009 MyC Refill [address] [id number] Dixon Carson MD XXX HOSPITALIST/ED DOCTOR XXX Refill Request (topamax) Social History Tobacco Use [...] AM CDT Legal 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 Gender Identity Male 09/20/2020 8:37 AM [...] Cunningham - 07/02/2009 10:07 AM CDTMessage from [facility]: Mauro Terrell would like a refill of the following medications: TOPAMAX 25 MG OR TABS [Dixon Carson MD] Preferred pharmacy: [facility] Comment: documented in this encounter Plan of Treatment Not on file documented as of this encounter Visit Diagnoses Diagnosis Migraine headaches- Primary Migraine, unspecified, without mention of intractable migraine without mention of status migrainosus documented in this encounter Additional Health Concerns Infection Onset Date Last Indicated Resolved Time Rule Out COVID-19 02/15/2020 02/15/2020 02/16/2020 2:32 PM 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 SCIENCE 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 Rule Out COVID-19 01/05/2021 01/05/2021 01/06/2021 12:57 PM CDT ESBL 01/05/2021 01/05/2021 Rule Out COVID-19 06/30/2021 06/30/2021 07/01/2021 9:34 AM CDT Rule Out COVID-19 07/25/2021 07/25/2021 07/25/2021 8:02 PM CDT documented as of this encounter Care Teams Cost Engineer Relationship Specialty Start Date End Date Dixon Carson MD PCP - General 08/10/03 07/21/09 Mingo Aldana MD PCP - General Family Practice 07/22/09 07/12/14 Shahida Sutton APRN NURSE SUBSTANCE ABUSE PCP - General Nurse Practitioner 08/17/14 08/04/21 Shahida Sutton APRN NURSE SUBSTANCE ABUSE PCP - Assigned PCP 07/12/14 05/07/18 Paula Reza MD PCP - General Internal Medicine 08/05/21 Shahida Sutton APRN NURSE SUBSTANCE ABUSE Assigned PCP 07/12/14 09/30/21 Carolynn Ramon, KASIE Personal Advocate & Liaison (PAL) 12/17/18 08/07/21 [place] [address] [place] [address] Assigned Musculoskeletal Provider 12/26/19 08/21/20 Brady Lion MD Assigned Heart and Vascular Provider 12/26/19 08/14/20 Nima France PA-C [address] [place] [address] Assigned Surgical Provider 05/19/20 08/21/20 Camille Chandler PA-C [address] [place] [address] Assigned Neuroscience Provider 05/19/20 09/14/20 Anabela Barakat APRN NURSE SUBSTANCE ABUSE [address] [place] [address] Assigned Heart and Vascular Provider 08/15/20 08/05/21 Nima France PA-C [address] [place], [place] [address] Assigned Musculoskeletal Provider 08/22/20 11/13/20 [place] [address] [facility] [place] [address] Assigned Musculoskeletal Provider 11/14/20 12/04/20 Fawad [place] MD [address] [place] [address] Assigned Musculoskeletal Provider 12/05/20 02/05/21 Roopa Almonte MD [address] [facility] [address] [place] [address] Endocrinology, Diabetes, and Metabolism 01/19/21 [place] [address] [facility] [address] [place] [address] Assigned Musculoskeletal Provider 02/06/21 09/16/21 Maryse Burton PA-C [address] [place] [address] Physician Treatment Supervisor Dermatology 04/14/21 Marquita Starkey MD [address] [facility] [address] [place] [address] Internal Medicine 05/06/21 05/06/21 Roopa lAmonte MD [address] [facility] 200 [place] [address] Hospitalist Endocrinology, Diabetes, and Metabolism 05/30/21 Griffin Joshi MD [address] [place] [address] Cardiovascular Disease 07/25/21 Rina Magallon, RN Lead Analytical Technician 07/29/21 07/11/22 Griffin Joshi MD [address] [place] [address] Assigned Heart and Vascular Provider 08/06/21 10/07/21 Roopa Almonte MD [address] [facility] [address] [place] [address] Assigned Endocrinology Provider 09/10/21 02/24/24 [place] [address] [facility] [place] [address] Assigned Musculoskeletal Provider 09/17/21 10/14/21 Lydia Bernstein PA-C [address] [place] [address] Assigned PCP 10/01/21 10/21/21 Rosa Maria Love [facility] Community Health Worker 10/06/21 [place] [address] [facility] [address] [place] [address] Assigned Musculoskeletal Provider 10/15/21 04/26/23 Paula Reza MD INACTIVE IN [place] 02/02/2024 Assigned PCP 10/22/21 12/23/21 Keerthi Miner APRN NURSE SUBSTANCE ABUSE [address] [place] [address] Assigned Heart and Vascular Provider 10/08/21 02/10/22 Shahida Sutton, DAMAGE CUTTER NURSE SUBSTANCE ABUSE Assigned PCP 12/24/21 03/24/22 Porsha Michaels APRN NURSE SUBSTANCE ABUSE [address] [place] [address] Assigned Heart and Vascular Provider 02/11/22 05/12/22 Paula Reza MD INACTIVE IN [place] 02/02/2024 Assigned PCP 03/25/22 04/07/22 Shahida Sutton APRN NURSE SUBSTANCE ABUSE [address] [place] [address] Assigned PCP 04/08/22 06/30/22 Daylin Ludwig, EP [facility] [address] [place] [address] Cardiac Rehabilitation Therapist 05/16/23 Laurel Velasquez MD [address] [place] [address] Assigned Heart and Vascular Provider 05/13/22 06/30/22 Daylin Ludwig, MIKI [facility] [address] [place] [address] Cardiac Rehabilitation Therapist 06/08/22 06/09/23 Paula Reza MD [place]NACTIVE IN [place] 02/02/2024 Assigned PCP 07/01/22 07/07/22 Porsha Michaels APRN NURSE SUBSTANCE ABUSE [address] [place] [address] Assigned Heart and Vascular Provider 07/01/22 07/07/22 Laurel Velasquez MD [address] [place] [address] Assigned Heart and Vascular Provider 07/08/22 08/04/22 Shahida Sutton APRN NURSE SUBSTANCE ABUSE Assigned PCP 07/08/22 09/08/22 Marilin Montaño, NURSE SUBSTANCE ABUSE [address] [place] [address] Assigned Heart and Vascular Provider 08/05/22 02/24/24 Esha Dewitt MD [address] [address] Gastroenterology 09/06/22 Heather Mosquera MD [address] [place] [address] Internal Medicine 09/06/22 Paula Reza MD INACTIVE IN [place] 02/02/2024 Assigned PCP 09/09/22 01/05/23 Esha Dewitt MD [address] [place] [address] Assigned Gastroenterology Provider 09/23/22 04/26/24 Valdo Escamilla PA-C [address] [place] [address] Assigned Neuroscience Provider 09/30/22 04/26/24 Nohelia Abarca PA-C [address] [place] [address] Physician Treatment Supervisor Gastroenterology 10/03/22 Heather Mosquera MD [address] [place] [address] Assigned PCP 01/06/23 Fawad [place] MD [address] [place] [address] Assigned Musculoskeletal Provider 04/27/23 06/25/23 documented as of this encounter
--- OUTSIDE RECORDS SUMMARY | 2024-11-02 15:19 | XMS_ITS | Encounter Summary ---
Author Organization [facility] Address [address] [place] [address] Care Team Providers Care Bag Machine Tender Name Role Phone Mingo Aldana MD Primary Car e Provider HermanShahida APRN ICER MACHINE Primary Care Provi ford Unavailable Herman, Shahida Cummings APRN ICER MACHINE Unavailable Un available Herman, Shahida Cummings APRN ICER MACHINE Unavailable Un available Carolynn Ramon RN Unavailable [phone] Augustine Callaway MD Unavailable Brady Lion MD Unavailable Un available Nima FranceC Unavailable [phone] Camille Chandler-C Unavailable [phone] Anabela Barakat APRN ICER MACHINE Unavailable Nima FranceC Unavailable [phone] Basilio Morillo DO Unavailable [phone] Fawad [place] MD Unavailable [phone] Roopa Almonte MD Unavailable [phone] Augustine Callaway MD Unavailable Maryse Burton PA-C Unavailable [phone] Marquita Starkey MD Unavailable [phone] Roopa Almonte MD Unavailable [phone] Griffin Joshi MD Unavailable Rina Magallon RN Unavailable [phone] Paula Reza MD Primary Care Provider UnavailGriffin Youssef MD Unavailable Roopa Almonte MD Unavailable [phone] [facility] Naik Unavailable Lydia Bernstein PA-C Unavailable Rosa Maria Love Unavailable [phone] Augustine Callaway MD Unavailable Paula Reza MD Unavailable Unavailable Keerthi Miner APRN ICER MACHINE Unavailable [phone] Herman, Shahida Cummings APRN ICER MACHINE Unavailable Un available Porsha Michaels APRN ICER MACHINE Unavailable [phone] Paula Reza MD Unavailable Unavailable Herman, Shahida Cummings APRN ICER MACHINE Unavailable Un available Daylin Ludwig Unavailable [phone] Laurel Velasquez MD Unavailable [phone] Daylin Ludwig Unavailable [phone] Paula Reza MD Unavailable Unavailable Porsha Michaels APRN ICER MACHINE Unavailable [phone] Laurel Velasquez MD Unavailable [phone] Shahida Sutton APRN ICER MACHINE Unavailable Un available Marilin Montaño ICER MACHINE Unavailable [phone] Esha Dewitt MD Unavailable [phone] Heather Mosquera MD Unavailable [phone] Paula Reza MD Unavailable Unavailable Esha Dewitt MD Unavailable [phone] Valdo Escamilla PA-C Unavailable Nohelia Abarca PA-C Unavailable [phone] Heather Mosquera MD Unavailable [phone] Fawad [place] MD Unavailable Encounter Details Date Type Department Care Team (Late st Contact Info) Description 06/09/2010 MyC Medical Advice [facility] [id number] [place] [phone] [place] [id number] [place] [address] Social History Tobacco Use Types Packs/Day Years Used Date Smoking Tobacco: Former Cigarettes 0.5 25 1 - 12/09/2006 Cigars Comments:occasionally Alcohol Use Standard Drinks/Week Comments Yes 0 (1 standard drink = 0.6 oz pur e alcohol) Very Occasionally Sex and Gender Information Value Date Recorded Sex Assigned at Male 09/20/2020 8:37 AM CDT 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 Gender Identity Male 09/20/2020 8:37 AM CDT Sexual Orientation Straight 09/20/2020 8: 37 AM CDT documented as of this encounter Plan of Treatment Not on file documented as of this encounter Visit Diagnoses Not on filedocumented in this encounter Additional Health Concerns Infection Onset Date Last Indicated Resolved Time Rule Out COVID-19 02/15/2020 02/15/2020 02/16/2020 2:32 PM ARCHITECT Rule Out COVID-19 01/05/2021 01/05/2021 01/06/2021 12:57 PM CDT ESBL 01/05/2021 01/05/2021 Rule Out COVID-19 06/30/2021 06/30/2021 07/01/2021 9:34 AM CDT Rule Out COVID-19 07/25/2021 07/25/2021 07/25/2021 8:02 PM CDT documented as of this encounter Care Teams Bag Machine Tender Relationship Specialty Start Date End Date Katya Mingo Bimal Celestin MD PCP - General Family Practice 07/22/09 07/12/14 Shahida Sutton APRN ICER MACHINE PCP - General Nurse Practitioner 08/17/14 08/04/21 Shahida Sutton APRN ICER MACHINE PCP - Assigned PCP 07/12/14 05/07/18 Paula Reza MD PCP - General Internal Medicine 08/05/21 Shahida Sutton APRN ICER MACHINE Assigned PCP 07/12/14 09/30/21 Carolynn Ramon, KASIE Personal Advocate & Liaison (PAL) 12/17/18 08/07/21 [place] [address] [place] [address] Assigned Musculoskeletal Provider 12/26/19 08/21/20 Brady Lion MD Assigned Heart and Vascular Provider 12/26/19 08/14/20 Nima France PA-C [address] [place] [address] Assigned Surgical Provider 05/19/20 08/21/20 Camille Chandler PA-C [address] [place] [address] Assigned Neuroscience Provider 05/19/20 09/14/20 Anabela Barakat APRN ICER MACHINE [address] [place] [address] Assigned Heart and Vascular Provider 08/15/20 08/05/21 Nima France PA-C [address] [facility] [address] [place] [address] Assigned Musculoskeletal Provider 08/22/20 11/13/20 [place] [address] [facility] [place] [address] Assigned Musculoskeletal Provider 11/14/20 12/04/20 Fawad [place] MD [address] [place] [address] Assigned Musculoskeletal Provider 12/05/20 02/05/21 Roopa Almonte MD [address] [facility] 200 [place] [address] Endocrinology, Diabetes, and Metabolism 01/19/21 [place] [address] [facility] [address] [place] [address] Assigned Musculoskeletal Provider 02/06/21 09/16/21 Maryse Burton PA-C [address] [place] [address] Physician Rougher 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 Dermatology 04/14/21 Marquita Starkey MD [address] [facility] [address] [place], [place] [address] Internal Medicine 05/06/21 05/06/21 Roopa Almonte MD [address] [facility] 200 [place] [address] Hospitalist Endocrinology, Diabetes, and Metabolism 05/30/21 Griffin Joshi MD [address] [facility] [address] [place] [address] Cardiovascular Disease 07/25/21 Rina Magallon, RN Lead Rug Setter [place] 07/29/21 07/11/22 Griffin Joshi MD [address] [facility] [address] [place] [address] Assigned Heart and Vascular Provider 08/06/21 10/07/21 Roopa Almonte MD [address] [facility] [address] [place], [place] [address] Assigned Endocrinology Provider 09/10/21 02/24/24 [place] [address] [facility] [place] [address] Assigned Musculoskeletal Provider 09/17/21 10/14/21 Lydia Bernstein PA-C [address] [facility] [address] [place] [address] Assigned PCP 10/01/21 10/21/21 Rosa Maria Love [facility] Community Health Worker 10/06/21 [place] [address] [address] [facility] [address] [place] [address] Assigned Musculoskeletal Provider 10/15/21 04/26/23 Paula Reza MD INACTIVE IN [place] 02/02/2024 Assigned PCP 10/22/21 12/23/21 Keerthi Miner LEATHER BELT SHAPER ICER MACHINE [address] [place] [address] Assigned Heart and Vascular Provider 10/08/21 02/10/22 Shahida Sutton LEATHER BELT SHAPER ICER MACHINE Assigned PCP 12/24/21 03/24/22 Porsha Michaels LEATHER BELT SHAPER ICER MACHINE [address] [place] [address] Assigned Heart and Vascular Provider 02/11/22 05/12/22 Paula Reza MD INACTIVE IN [place] 02/02/2024 Assigned PCP 03/25/22 04/07/22 Shahida Sutton LEATHER BELT SHAPER ICER MACHINE [address] [place] [address] Assigned PCP 04/08/22 06/30/22 Daylin Ludwig, EP [facility] [address] [place] [address] Cardiac Rehabilitation Therapist 05/16/23 Laurel Velasquez MD [address] [place] [address] Assigned Heart and Vascular Provider 05/13/22 06/30/22 Daylin Ludwig, MIKI [facility] [address] [place] [address] Cardiac Rehabilitation Therapist 06/08/22 06/09/23 Paula Reza MD INACTIVE IN [place] 02/02/2024 Assigned PCP 07/01/22 07/07/22 Porsha Michaels APRN ICER MACHINE [address] [place] [address] Assigned Heart and Vascular Provider 07/01/22 07/07/22 Laurel Velasquez MD [address] [place] [address] Assigned Heart and Vascular Provider 07/08/22 08/04/22 Shahida Sutton APRN ICER MACHINE Assigned PCP 07/08/22 09/08/22 Marilin Montaño ICER MACHINE [address] [place] [address] Assigned Heart and Vascular Provider 08/05/22 02/24/24 Esha Dewitt MD [address] [address] Gastroenterology 09/06/22 Heather Mosquera MD [address] [place] [address] Internal Medicine 09/06/22 Paula Reza MD INACTIVE IN [place] 02/02/2024 Assigned PCP 09/09/22 01/05/23 Esha Dewitt MD [address] [address] Assigned Gastroenterology Provider 09/23/22 04/26/24 Valdo Escamilla PA-C [address] [place], [place] [address] Assigned Neuroscience Provider 09/30/22 04/26/24 Nohelia Abarca PA-C [address] [place] [address] Physician Rougher 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 Gastroenterology 10/03/22 Heather Mosquera MD [address] [place] [address] Assigned PCP 01/06/23 Fawad [place] MD [address] [place], [place] [address] Assigned Musculoskeletal Provider 04/27/23 06/25/23 documented as of this encounter
--- OUTSIDE RECORDS SUMMARY | 2024-11-02 15:19 | XMS_ITS | Encounter Summary ---
Author Organization [facility] Address [address] [place] [address] Care Team Providers Care Distance Learning Coordinator Name Role Phone Mingo Aldana MD Primary Car e Provider HermanShahida APRN DENTAL EQUIPMENT TECHNICIAN Primary Care Provi ford Unavailable Herman, Shahida Cummings APRN DENTAL EQUIPMENT TECHNICIAN Unavailable Un available Herman, Shahida Cummings APRN DENTAL EQUIPMENT TECHNICIAN Unavailable Un available Carolynn Ramon RN Unavailable [phone] Augustine Callaway MD Unavailable Brady Lion MD Unavailable Un available Nima FranceC Unavailable [phone] Camille Chandler-C Unavailable [phone] Anabela Barakat APRN DENTAL EQUIPMENT TECHNICIAN Unavailable Nima FranceC Unavailable [phone] Basilio Morillo DO Unavailable [phone] Fawad York MD Unavailable [phone] Roopa Almonte MD Unavailable [phone] Augustine Callaway MD Unavailable Maryse Burton PA-C Unavailable [phone] Marquita Starkey MD Unavailable [phone] Roopa Almonte MD Unavailable [phone] Griffin Joshi MD Unavailable Rina Magallon RN Unavailable [phone] Paula Reza MD Primary Care Provider UnavailGriffin Youssef MD Unavailable Roopa Almonte MD Unavailable [phone] [facility] Naik Unavailable Lydia Bernstein PA-C Unavailable Rosa Maria Love Unavailable [phone] Augustine Callaway MD Unavailable Paula Reza MD Unavailable Unavailable Keerthi Miner APRN DENTAL EQUIPMENT TECHNICIAN Unavailable [phone] Herman, Shahida Cummings APRN DENTAL EQUIPMENT TECHNICIAN Unavailable Un available Porsha Michaels APRN DENTAL EQUIPMENT TECHNICIAN Unavailable [phone] Paula Reza MD Unavailable Unavailable Herman, Shahida Cummings APRN DENTAL EQUIPMENT TECHNICIAN Unavailable Un available Daylin Ludwig Unavailable [phone] Laurel Velasquez MD Unavailable [phone] Daylin Ludwig Unavailable [phone] Paula Reza MD Unavailable Unavailable Porsha Michaels APRN DENTAL EQUIPMENT TECHNICIAN Unavailable [phone] Laurel Velasquez MD Unavailable [phone] Shahida Sutton APRN DENTAL EQUIPMENT TECHNICIAN Unavailable Un available Marilin Montaño DENTAL EQUIPMENT TECHNICIAN Unavailable [phone] Esha Dewitt MD Unavailable [phone] Heather Mosquera MD Unavailable [phone] Paula Reza MD Unavailable Unavailable Esha Dewitt MD Unavailable [phone] Valdo Escamilla PA-C Unavailable Nohelia Abarca PA-C Unavailable [phone] Heather Mosuqera MD Unavailable [phone] Fawad York MD Unavailable Encounter Details Date Type Department Care Team (Late st Contact Info) Description 06/10/2010 MyC Medical Advice [facility] [id number] [place] [address] [phone] [place] [id number] [place] [address] Social History Tobacco Use Types Packs/Day Years Used Date Smoking Tobacco: Former Cigarettes 0.5 25 1 - 12/09/2006 Cigars Comments:occasionally Alcohol Use Standard Drinks/Week Comments Yes 0 (1 standard drink = 0.6 oz pur e alcohol) Very Occasionally Sex and Gender Information Value Date Recorded Sex Assigned at Male 09/20/2020 8:37 AM CDT Legal 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 Gender Identity Male 09/20/2020 8:37 AM CDT Sexual Orientation Straight 09/20/2020 8: 37 AM CDT documented as of this encounter Plan of Treatment Not on file documented as of this encounter Visit Diagnoses Not on filedocumented in this encounter Additional Health Concerns Infection Onset Date Last Indicated Resolved Time Rule Out COVID-19 02/15/2020 02/15/2020 02/16/2020 2:32 PM CUTTING INSPECTOR Rule Out COVID-19 01/05/2021 01/05/2021 01/06/2021 12:57 PM CDT ESBL 01/05/2021 01/05/2021 Rule Out COVID-19 06/30/2021 06/30/2021 07/01/2021 9:34 AM CDT Rule Out COVID-19 07/25/2021 07/25/2021 07/25/2021 8:02 PM CDT documented as of this encounter Care Teams Distance Learning Coordinator Relationship Specialty Start Date End Date Katya Mingo Bimal Celestin MD PCP - General Family Practice 07/22/09 07/12/14 Shahida Sutton APRN DENTAL EQUIPMENT TECHNICIAN PCP - General Nurse Practitioner 08/17/14 08/04/21 Shahida Sutton APRN DENTAL EQUIPMENT TECHNICIAN PCP - Assigned PCP 07/12/14 05/07/18 Paula Reza MD PCP - General Internal Medicine 08/05/21 Shahida Sutton APRN DENTAL EQUIPMENT TECHNICIAN Assigned PCP 07/12/14 09/30/21 Carolynn Ramon, KASIE Personal Advocate & Liaison (PAL) 12/17/18 08/07/21 [place] [address] [place] [address] Assigned Musculoskeletal Provider 12/26/19 08/21/20 Brady Lion MD Assigned Heart and Vascular Provider 12/26/19 08/14/20 Nima France PA-C [address] [place] [id number] Assigned Surgical Provider 05/19/20 08/21/20 Camille Chandler PA-C [address] [place] [id number] Assigned Neuroscience Provider 05/19/20 09/14/20 Anabela Barakat APRN DENTAL EQUIPMENT TECHNICIAN [address] [place] [address] Assigned Heart and Vascular Provider 08/15/20 08/05/21 Nima France PA-C [address] [facility] [address] [place] [address] Assigned Musculoskeletal Provider 08/22/20 11/13/20 [place] [address] [place] [address] Assigned Musculoskeletal Provider 11/14/20 12/04/20 Fawad York MD [address] [place] [address] Assigned Musculoskeletal Provider 12/05/20 02/05/21 Roopa Almonte MD [address] [facility] 200 [place] [address] Endocrinology, Diabetes, and Metabolism 01/19/21 [place] [address] [facility] 300 [place] [address] Assigned Musculoskeletal Provider 02/06/21 09/16/21 Maryse Burton PA-C [address] [place] [address] Physician Senior Care Assistant Dermatology 04/14/21 Marquita Starkey MD [address] [facility] [address] [place], [place] [address] Internal Medicine 05/06/21 05/06/21 Roopa Almonte MD [address] [facility] 200 [place] [address] Hospitalist Endocrinology, Diabetes, and Metabolism 05/30/21 Griffin Joshi MD [address] [facility] [address] [place] [address] Cardiovascular Disease 07/25/21 Rina Magallon, RN Lead Chiropractic Assistant 07/29/21 07/11/22 Griffin Joshi MD [address] [facility] [address] [place] [address] Assigned Heart and Vascular Provider 08/06/21 10/07/21 Roopa Almonte MD [address] [facility] 200 [place], [place] [address] Assigned Endocrinology Provider 09/10/21 02/24/24 [place] [address] [place] [address] Assigned Musculoskeletal Provider 09/17/21 10/14/21 Lydia Bernstein PA-C [address] [facility] [address] [place] [address] Assigned PCP 10/01/21 10/21/21 Rosa Maria Love CHW Community Health Worker 10/06/21 [place] [address] [address] [facility] [address] [place] [address] Assigned Musculoskeletal Provider 10/15/21 04/26/23 Paula Reza [place] 02/02/2024 Assigned PCP 10/22/21 12/23/21 Keerthi Miner LEAD DRIVER DENTAL EQUIPMENT TECHNICIAN [address] [place] [address] Assigned Heart and Vascular Provider 10/08/21 02/10/22 Shahida Sutton LEAD DRIVER DENTAL EQUIPMENT TECHNICIAN Assigned PCP 12/24/21 03/24/22 Porsha Michaels LEAD DRIVER DENTAL EQUIPMENT TECHNICIAN [address] [place] [address] Assigned Heart and Vascular Provider 02/11/22 05/12/22 Paula Reza MD [place] 02/02/2024 Assigned PCP 03/25/22 04/07/22 Shahida Sutton LEAD DRIVER DENTAL EQUIPMENT TECHNICIAN [address] [place] [address] Assigned PCP 04/08/22 06/30/22 Daylin Ludwig, EP [facility] [address] [place] [address] Cardiac Rehabilitation Therapist 05/16/23 Laurel Velasquez MD [address] [place] [address] Assigned Heart and Vascular Provider 05/13/22 06/30/22 Daylin Ludwig, MIKI [facility] [address] [place] [address] Cardiac Rehabilitation Therapist 06/08/22 06/09/23 Paula Reza MD [place] 02/02/2024 Assigned PCP 07/01/22 07/07/22 Porsha Michaels APRN DENTAL EQUIPMENT TECHNICIAN [address] [place] [address] Assigned Heart and Vascular Provider 07/01/22 07/07/22 Laurel Velasquez MD [address] [place] [address] Assigned Heart and Vascular Provider 07/08/22 08/04/22 Shahida Sutton APRN DENTAL EQUIPMENT TECHNICIAN Assigned PCP 07/08/22 09/08/22 Marilin Montaño DENTAL EQUIPMENT TECHNICIAN [address] [place] [address] Assigned Heart and Vascular Provider 08/05/22 02/24/24 Esha Dewitt MD [address] [address] Gastroenterology 09/06/22 Heather Mosquera MD [address] [place] [address] Internal Medicine 09/06/22 Paula Reza MD [place] 02/02/2024 Assigned PCP 09/09/22 01/05/23 Esha Dewitt MD [address] [address] Assigned Gastroenterology Provider 09/23/22 04/26/24 Valdo Escmailla PA-C [address] [place], [place] [address] Assigned Neuroscience Provider 09/30/22 04/26/24 Nohelia Abarca PA-C [address] [place] [address] Physician Senior Care Assistant Gastroenterology 10/03/22 Heather Mosquera MD [address] [place] [address] Assigned PCP 01/06/23 Fawad York MD [address] [place], [place] [address] Assigned Musculoskeletal Provider 04/27/23 06/25/23 documented as of this encounter
--- OUTSIDE RECORDS SUMMARY | 2024-11-02 15:19 | XMS_ITS | Encounter Summary ---
Author Organization [facility] Address [address] [place] [address] Care Team Providers Care Security Shift Supervisor Name Role Phone Mingo Aldana MD Primary Car e Provider HermanShahida APRN HAND BOOTMAKER Primary Care Provi ford Unavailable Herman, Shahida Cummings APRN HAND BOOTMAKER Unavailable Un available Herman, Shahida Cummings APRN HAND BOOTMAKER Unavailable Un available Carolynn Ramon RN Unavailable [phone] Augustine Callaway MD Unavailable Brady Lion MD Unavailable Un available Nima FranceC Unavailable [phone] Camille Chandler-C Unavailable [phone] Anabela Barakat APRN HAND BOOTMAKER Unavailable Nima FranceC Unavailable [phone] Basilio Morillo DO Unavailable [phone] Fawad York MD Unavailable [phone] Roopa Almonte MD Unavailable [phone] Augustine Callaway MD Unavailable Maryse Burton PA-C Unavailable [phone] Marquita Starkey MD Unavailable [phone] Roopa Almonte MD Unavailable [phone] Griffin Joshi MD Unavailable Rina Magallon RN Unavailable [phone] Paula Reza MD Primary Care Provider UnavailGriffin Youssef MD Unavailable Roopa Almonte MD Unavailable [phone] [facility] Basilio Naik Unavailable Lydia Bernstein PA-C Unavailable Rosa Maria Love Unavailable [phone] Augustine Callaway MD Unavailable Paula Reza MD Unavailable Unavailable Keerthi Miner APRN HAND BOOTMAKER Unavailable [phone] Herman, Shahida Cummings APRN HAND BOOTMAKER Unavailable Un available Porsha Michaels APRN HAND BOOTMAKER Unavailable [phone] Paula Reza MD Unavailable Unavailable Herman, Shahida Cummings APRN HAND BOOTMAKER Unavailable Un available Daylin Ludwig Unavailable [phone] Laurel Velasquez MD Unavailable [phone] Daylin Ludwig Unavailable [phone] Paula Reza MD Unavailable Unavailable Porsha Michaels APRN HAND BOOTMAKER Unavailable [phone] Laurel Velasquez MD Unavailable [phone] Shahida Sutton APRN HAND BOOTMAKER Unavailable Un available Marilin Montaño HAND BOOTMAKER Unavailable [phone] Esha Dewitt MD Unavailable [phone] Heather Mosquera MD Unavailable [phone] Paula Reza MD Unavailable Unavailable Esha Dewitt MD Unavailable [phone] Andi Valdo Desouza PA-C Unavailable [phone] Nohelia Abarca PA-C Unavailable [phone] EvelineHeathre pastrana Wicho GODOY Unavailable Fawad York MD Unavailable Reason for Visit * Reason Onset Date Comments Refill Request 03/18/2010 Vicodin Encounter Details Date Type Department Care Team (Late st Contact Info) Description 03/18/2010 MyC Refill [facility] [address] [address] Mingo Aldana MD [facility] [address] [place], [place] [address] Refill Request (Vicodin) Social History Tobacco Use Types Packs/Day Years Used Date Smoking Tobacco: Former Cigarettes 0.5 25 1 - 12/09/2006 Cigars Comments:occasionally Alcohol Use Standard Drinks/Week Comments Yes 0 (1 standard drink = 0.6 oz pur e alcohol) Very Occasionally Sex and Gender Information Value Date Recorded Sex Assigned at Male 09/20/2020 8:37 AM CDT Legal 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 Mingo Aldana: Please see Pt's request below. As stated, he has been taking Vicodin 3x per day some days. Last refill was on 02/21/2010 for a max dose of 2 tablets per day. Thank you, Milagros Denton RN IAL NEEDS TUTOR * Telephone Encounter - Milagros Denton RN - 03/18/2010 2:14 [facility] Terrell would like a refill of the following medications: hydrocodone-acetaminophen (NORCO) 10-325 MG per tablet [Mingo Aldana MD] Preferred pharmacy: [facility] Comment: Doctor,Per my Psych I have begun [...] my supply is low. Any questions, concerns [phone] IAL NEEDS TUTOR documented in this encounter Plan of Treatment Not on file documented as of this encounter Visit Diagnoses Diagnosis Lumbago- Primary documented in this encounter Additional Health Concerns Infection Onset Date Last Indicated Resolved Time Rule Out COVID-19 02/15/2020 02/15/2020 02/16/2020 2:32 PM SPECIAL NEEDS TUTOR Rule Out COVID-19 01/05/2021 01/05/2021 01/06/2021 12:57 PM CDT ESBL 01/05/2021 01/05/2021 Rule Out COVID-19 06/30/2021 06/30/2021 07/01/2021 9:34 AM CDT Rule Out COVID-19 07/25/2021 07/25/2021 07/25/2021 8:02 PM CDT documented as of this encounter Care Teams Security Shift Supervisor Relationship Specialty Start Date End Date Mingo Aldana MD PCP - General Family Practice 07/22/09 07/12/14 Shahida Sutton APRN HAND BOOTMAKER PCP - General Nurse Practitioner 08/17/14 08/04/21 Shahida Sutton APRN HAND BOOTMAKER PCP - Assigned PCP 07/12/14 05/07/18 Paula Reza MD PCP - General Internal Medicine 08/05/21 Shahida Sutton, CONTRACT ASSOCIATE HAND BOOTMAKER Assigned PCP 07/12/14 09/30/21 Carolynn Ramon RN Personal Advocate & Liaison (PAL) 12/17/18 08/07/21 [place] [address] [place] [address] Assigned Musculoskeletal Provider 12/26/19 08/21/20 Brady Lion MD Assigned Heart and Vascular Provider 12/26/19 08/14/20 Nima France PA-C [address] [place] [address] Assigned Surgical Provider 05/19/20 08/21/20 Camille Chandler PA-C [address] [facility] [address] [place] [address] Assigned Neuroscience Provider 05/19/20 09/14/20 Anabela Barakat, CONTRACT ASSOCIATE HAND BOOTMAKER [address] [place] [address] Assigned Heart and Vascular Provider 08/15/20 08/05/21 Nima France PA-C [address] [place] [address] Assigned Musculoskeletal Provider 08/22/20 11/13/20 Basilio Morillo [place] [address] [facility] [place] [address] Assigned Musculoskeletal Provider 11/14/20 12/04/20 Fawad York MD [address] [facility] [place] [place] [address] Assigned Musculoskeletal Provider 12/05/20 02/05/21 Roopa Almonte MD [address] [facility] 200 [place] [address] Endocrinology, Diabetes, and Metabolism 01/19/21 [place] [address] [facility] [address] [place] [address] Assigned Musculoskeletal Provider 02/06/21 09/16/21 Maryse Burton PAAna MariaC [address] [place] [address] Physician Irrigator Head Dermatology 04/14/21 Marquita Starkey MD [address] [facility] 200 [place] [address] Internal Medicine 05/06/21 05/06/21 Roopa Almonte MD [address] [facility] [address] [place] [address] Hospitalist Endocrinology, Diabetes, and Metabolism 05/30/21 Griffin Joshi MD [address] [facility] [address] [place] [address] Cardiovascular Disease 07/25/21 Rina Magallon, RN Lead Branch Rental Manager 07/29/21 07/11/22 Griffin Joshi MD [address] [place] [address] Assigned Heart and Vascular Provider 08/06/21 10/07/21 Roopa Almonte MD [address] [address] [place] [address] Assigned Endocrinology Provider 09/10/21 02/24/24 [place] [address] [place] [address] Assigned Musculoskeletal Provider 09/17/21 10/14/21 Lydia Bernstein PA-C [address] [place] [address] Assigned PCP 10/01/21 10/21/21 Rosa Maria Love Cristina Community Health Worker 10/06/21 [place] [address] [facility] [address] [place] [address] Assigned Musculoskeletal Provider 10/15/21 04/26/23 Paula Reza [place] 02/02/2024 Assigned PCP 10/22/21 12/23/21 Keerthi Miner APRN HAND BOOTMAKER [address] [place] [address] Assigned Heart and Vascular Provider 10/08/21 02/10/22 Shahida Sutton APRN HAND BOOTMAKER Assigned PCP 12/24/21 03/24/22 Porsha Michaels APRN HAND BOOTMAKER [address] [place] [address] Assigned Heart and Vascular Provider 02/11/22 05/12/22 Paula eRza MD [place] 02/02/2024 Assigned PCP 03/25/22 04/07/22 Shahida Sutton APRN HAND BOOTMAKER [address] [place] [address] Assigned PCP 04/08/22 06/30/22 Daylin Ludwig, EP [facility] [address] [place] [address] Cardiac Rehabilitation Therapist 05/16/23 Laurel Velasquez MD [address] [place] [address] Assigned Heart and Vascular Provider 05/13/22 06/30/22 Daylin Ludwig, EP [facility] [address] [place] [address] Cardiac Rehabilitation Therapist 06/08/22 06/09/23 Paula Reza MD [place] 02/02/2024 Assigned PCP 07/01/22 07/07/22 Porsha Michaels APRN HAND BOOTMAKER [address] [place] [address] Assigned Heart and Vascular Provider 07/01/22 07/07/22 Laurel Velasquez MD [address] [place] [address] Assigned Heart and Vascular Provider 07/08/22 08/04/22 Shahida Sutton APRN HAND BOOTMAKER Assigned PCP 07/08/22 09/08/22 Marilin Montaño, HAND BOOTMAKER [address] [place] [address] Assigned Heart and Vascular Provider 08/05/22 02/24/24 Esha Dewitt MD [address] [place] [address] Gastroenterology 09/06/22 Heather Mosquera MD [address] [place] [address] Internal Medicine 09/06/22 Paula Reza MD [place] 02/02/2024 Assigned PCP 09/09/22 01/05/23 Esha Dewitt MD [address] [place] [address] Assigned Gastroenterology Provider 09/23/22 04/26/24 Valdo Escamilla PA-C [address] [place], [place] [address] Assigned Neuroscience Provider 09/30/22 04/26/24 Nohelia Abarca PA-C [address] [place], [place] [address] Physician Irrigator Head Gastroenterology 10/03/22 Heather Mosquera MD [address] [address] Assigned PCP 01/06/23 Fawad York MD [address] [place], [place] [address] Assigned Musculoskeletal Provider 04/27/23 06/25/23 documented as of this encounter
--- OUTSIDE RECORDS SUMMARY | 2024-11-02 15:19 | XMS_ITS | Encounter Summary ---
Author Organization [place] Address [address] [place] [address] Care Team Providers Care Puddler Helper Name Role Phone Mingo Aldana MD Primary Car e Provider HermanShahida APRN OFFICE AIDE Primary Care Provi ford Unavailable Herman, Shahida Cummings APRN OFFICE AIDE Unavailable Un available Herman, Shahida Cummings APRN OFFICE AIDE Unavailable Un available Carolynn Ramon RN Unavailable [phone] Augustine Callaway MD Unavailable Brady Lion MD Unavailable Un available Nima FranceC Unavailable [phone] Camille Chandler-C Unavailable [phone] Anabela Barakat APRN OFFICE AIDE Unavailable Nima FranceC Unavailable [phone] Basilio Morillo DO Unavailable [phone] Fawad York MD Unavailable [phone] Roopa Almonte MD Unavailable [phone] Augustine Callaway MD Unavailable Maryse Burton PA-C Unavailable [phone] Marquita Starkey MD Unavailable [phone] Roopa Almonte MD Unavailable [phone] Griffin Joshi MD Unavailable Rina Magallon RN Unavailable [phone] Paula Reza MD Primary Care Provider UnavailGriffin Youssef MD Unavailable Roopa Almonte MD Unavailable [phone] [facility] Naik Unavailable Lydia Bernstein PA-C Unavailable Rosa Maria Love Unavailable [phone] Augustine Callaway MD Unavailable Paula Reza MD Unavailable Unavailable Keerthi Miner APRN OFFICE AIDE Unavailable [phone] Herman, Shahida Cummings APRN OFFICE AIDE Unavailable Un available Porsah Michaels APRN OFFICE AIDE Unavailable [phone] Paula Reza MD Unavailable Unavailable Herman, Shahida Cummings APRN OFFICE AIDE Unavailable Un available Daylin Ludwig Unavailable [phone] Laurel Velasquez MD Unavailable [phone] Daylin Ludwig Unavailable [phone] Paula Reza MD Unavailable Unavailable Porsha Michaels APRN OFFICE AIDE Unavailable [phone] Laurel Velasquez MD Unavailable [phone] Shahida Sutton APRN OFFICE AIDE Unavailable Un available Marilin Montaño OFFICE AIDE Unavailable [phone] Esha Dewitt MD Unavailable Heather Mosquera MD Unavailable [phone] Paula Reza MD Unavailable Unavailable Esha Dewitt MD Unavailable [phone] Valdo Escamilla PA-C Unavailable Nohelia Abarca PA-C Unavailable [phone] Heather Mosquera MD Unavailable [phone] Fawad York MD Unavailable [phone] Encounter Details Date Type Department Care Team (Late st Contact Info) Description 06/06/2010 MyC Medical Advice [facility] [id number] [place] [phone] [place] [id number] [place] [id number] Social History Tobacco Use Types Packs/Day Years Used Date Smoking Tobacco: Former Cigarettes 0.5 25 1 - 12/09/2006 Cigars Comments:occasionally Alcohol Use Standard Drinks/Week Comments Yes 0 (1 standard drink = 0.6 oz pur e alcohol) Very Occasionally Sex and Gender Information Value Date Recorded Sex Assigned at Male 09/20/2020 8:37 AM CDT Legal Sex Male 3:40 AM [employer] Gender Identity Male 09/20/2020 8:37 AM CDT Sexual Orientation Straight 09/20/2020 8: 37 AM CDT documented as of this encounter Plan of Treatment Not on file documented as of this encounter Visit Diagnoses Not on filedocumented in this encounter Additional Health Concerns Infection Onset Date Last Indicated Resolved Time Rule Out COVID-19 02/15/2020 02/15/2020 02/16/2020 2:32 PM [employer] Rule Out COVID-19 01/05/2021 01/05/2021 01/06/2021 12:57 PM CDT ESBL 01/05/2021 01/05/2021 Rule Out COVID-19 06/30/2021 06/30/2021 07/01/2021 9:34 AM CDT Rule Out COVID-19 07/25/2021 07/25/2021 07/25/2021 8:02 PM CDT documented as of this encounter Care Teams Puddler Helper Relationship Specialty Start Date End Date Katya Mingo Bimal Celestin MD PCP - General Family Practice 07/22/09 07/12/14 Shahida Sutton APRN OFFICE AIDE PCP - General Nurse Practitioner 08/17/14 08/04/21 Shahida Sutton APRN OFFICE AIDE PCP - Assigned PCP 07/12/14 05/07/18 Paula Reza MD PCP - General Internal Medicine 08/05/21 Shahida Sutton APRN OFFICE AIDE Assigned PCP 07/12/14 09/30/21 Carolynn Ramon, KASIE Personal Advocate & Liaison (PAL) 12/17/18 08/07/21 [place] [address] [place] [address] Assigned Musculoskeletal Provider 12/26/19 08/21/20 Brady Lion MD Assigned Heart and Vascular Provider 12/26/19 08/14/20 Nima France PA-C [address] [place] [id number] Assigned Surgical Provider 05/19/20 08/21/20 Camille Chandler PA-C [address] [place] [address] Assigned Neuroscience Provider 05/19/20 09/14/20 Anabela Barakat APRN OFFICE AIDE [address] [place] [address] Assigned Heart and Vascular Provider 08/15/20 08/05/21 Nima France PA-C [address] [facility] [address] [place] [address] Assigned Musculoskeletal Provider 08/22/20 11/13/20 [place] [address] [place] [address] Assigned Musculoskeletal Provider 11/14/20 12/04/20 Fawad York MD [address] [place] [address] Assigned Musculoskeletal Provider 12/05/20 02/05/21 Roopa Almonte MD [address] [facility] [address] [place] [address] Endocrinology, Diabetes, and Metabolism 01/19/21 [place] [address] [facility] [address] [place] [address] Assigned Musculoskeletal Provider 02/06/21 09/16/21 Maryse Burton PA-C [address] [place] [address] Physician Billing Services Manager Dermatology 04/14/21 Marquita Starkey MD [address] [facility] [address] [place], [place] [address] Internal Medicine 05/06/21 05/06/21 Roopa Almonte MD [address] [facility] [address] [place] [address] Hospitalist Endocrinology, Diabetes, and Metabolism 05/30/21 Griffin Joshi MD [address] [facility] [address] [place] [address] Cardiovascular Disease 07/25/21 Rina Magallon, RN Lead Alliances Consultant 07/29/21 07/11/22 Griffin Joshi MD [address] [facility] [address] [place] [address] Assigned Heart and Vascular Provider 08/06/21 10/07/21 Roopa Almonte MD [address] [facility] [address] [place], [place] [address] Assigned Endocrinology Provider 09/10/21 02/24/24 [place] [address] [place] [address] Assigned Musculoskeletal Provider 09/17/21 10/14/21 Lydia Bernstein PA-C [address] [facility] [address] [place] [address] Assigned PCP 10/01/21 10/21/21 Rosa Maria Love CHW Community Health Worker 10/06/21 [place] [address] [address] [facility] [address] [place] [address] Assigned Musculoskeletal Provider 10/15/21 04/26/23 Paula Reza MD [place] IN [place] 02/02/2024 Assigned PCP 10/22/21 12/23/21 Keerthi Miner LAND MEASURER OFFICE AIDE [address] [place] [address] Assigned Heart and Vascular Provider 10/08/21 02/10/22 Shahida Sutton LAND MEASURER OFFICE AIDE Assigned PCP 12/24/21 03/24/22 Porsha Michaels LAND MEASURER OFFICE AIDE [address] [place] [address] Assigned Heart and Vascular Provider 02/11/22 05/12/22 Paula Reza MD [place] 02/02/2024 Assigned PCP 03/25/22 04/07/22 Shahida Sutton LAND MEASURER OFFICE AIDE [address] [place] [address] Assigned PCP 04/08/22 06/30/22 Daylin Ludwig, EP [facility] [address] [place] [address] Cardiac Rehabilitation Therapist 05/16/23 Laurel Velasquez MD [address] [place] [address] Assigned Heart and Vascular Provider 05/13/22 06/30/22 Daylin Ludwig, [place] [address] [place] [address] Cardiac Rehabilitation Therapist 06/08/22 06/09/23 Paula Reza MD [place] 02/02/2024 Assigned PCP 07/01/22 07/07/22 Porsha Michaels APRN OFFICE AIDE [address] [place] [address] Assigned Heart and Vascular Provider 07/01/22 07/07/22 Laurel Velasquez MD [address] [place] [address] Assigned Heart and Vascular Provider 07/08/22 08/04/22 Shahida uStton APRN OFFICE AIDE Assigned PCP 07/08/22 09/08/22 Marilin Montaño OFFICE AIDE [address] [place] [address] Assigned Heart and Vascular Provider 08/05/22 02/24/24 Esha Dewitt MD [address] [address] Gastroenterology 09/06/22 Heather Mosquera MD [address] [place] [address] Internal Medicine 09/06/22 Paula Reza MD [place] 02/02/2024 Assigned PCP 09/09/22 01/05/23 Esha Dewitt MD [address] [address] Assigned Gastroenterology Provider 09/23/22 04/26/24 Valdo Escamilla PA-C [address] [place], [place] [address] Assigned Neuroscience Provider 09/30/22 04/26/24 Nohelia Abarca PA-C [address] [place] [address] Physician Billing Services Manager Gastroenterology 10/03/22 Heather Mosquera MD [address] [place] [address] Assigned PCP 01/06/23 Fawad York MD [address] [place], [place] [address] Assigned Musculoskeletal Provider 04/27/23 06/25/23 documented as of this encounter
--- NOTE | 2024-11-02 15:42 | CRLHL7_ITS ---
For Patients: As a result of the Century Cures Act, medical imaging exams and procedure reports are released immediately into your electronic medical record. You may view this report before your referring provider. If you have questions, please contact your health care provider. INDICATION: Dyspnea COMPARISON: 09/17/2024 chest radiograph TECHNIQUE: Single frontal radiographic view(s) of the chest. FINDINGS: Pacemaker with left chest wall battery pack. Small to medium sized right pleural effusion has increased since the prior exam. No substantial left pleural effusion. There are diffuse interstitial pulmonary opacities which have increased in conspicuity since the prior exam. Similar cardiomediastinal contours. There are osseous degenerative changes. IMPRESSION: Small to medium sized right pleural effusion has increased since the prior exam. There are diffuse interstitial pulmonary opacities which have increased in conspicuity since the prior exam. Dictated by Gabo Contreras MD @ 11/02/2024 4:47:52 PM (Electronically Signed)
--- NOTE | 2024-11-02 15:56 | ED.GENADULT ---
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 Discharge Plan Discharge Clinical Impression: Acute on chronic clinical systolic heart failure <Brian Richey MD - Last Filed: 11/04/24 15:55> Patient Disposition: [facility] <Brian Richey MD - Last Filed: 11/04/24 15:55> Condition: Improved <Brian Richey MD - Last Filed: 11/04/24 15:55> Prescriptions: No Action oxycodone-acetaminophen 7.5-300 mg tablet 1 tab PO .5XD PRN (DME) Dexcom G7 Sensor Device See Rx Instructions .ROUTE .MEDSUPPLY Qty: 2 3RF Rx Instructions: Change every 10 days warfarin 5 mg tablet 5 mg PO DAILY Qty: 30 3RF furosemide 40 mg tablet 120 mg PO BID Qty: 120 3RF tizanidine 4 mg tablet PO nitroglycerin 0.4 mg tablet, sublingual sublingual Entresto 24-26 mg tablet 1 tab PO BID aspirin [Adult Low Dose Aspirin] 81 mg tablet,delayed release (DR/EC) 81 mg PO QDAY clobetasol 0.05 % ointment topical BID polyethylene glycol 3350 [Miralax] 17 gram/dose powder 17 g PO BID Qty: 850 0RF hydroxyzine HCl 25 mg tablet 25 mg PO BID PRN (Reason: nausea and vomiting) Qty: 30 2RF losartan 25 mg tablet 25 mg PO DAILY lorazepam [Ativan] 0.5 mg tablet 1 mg PO BID PRN (Reason: anxiety) Qty: 60 0RF amiodarone 200 mg tablet 200 mg PO DAILY Qty: 90 3RF Jardiance 10 mg tablet 10 mg PO DAILY Qty: 90 3RF albuterol sulfate 90 mcg/actuation HFA aerosol inhaler 1 puff inhalation Q8H Qty: 6.7 0RF carvedilol 3.125 mg tablet 3.125 mg PO BID cefuroxime axetil 500 mg tablet 500 mg PO BID meclizine 25 mg tablet 25 mg PO BID PRN (Reason: dizziness) Qty: 30 0RF insulin aspart U-100 [Novolog U-100 Insulin aspart] 100 unit/mL solution 1 sliding scale dose subcut USEASDIRECTD Rx Instructions: Sliding scale TID w/ meals (DME) pen needle, diabetic [Comfort EZ Pen [place]] 32 gauge x 5/32 needle See Rx Instructions .Route Qty: 100 3RF Rx Instructions: As directed esomeprazole magnesium 40 mg capsule,delayed release(DR/EC) 40 mg PO DAILY Qty: 90 3RF ondansetron 4 mg tablet,disintegrating 4 mg PO Q8H PRN (Reason: nausea and vomiting) Qty: 30 1RF insulin glargine-lixisenatide 100 unit-33 mcg/mL insulin pen 25 unit subcut BID Qty: 15 2RF (DME) FreeStyle Rafa 3 Plus Sensor Device See Rx Instructions .Route Qty: 1 0RF Rx Instructions: As directed ipratropium-albuterol 0.5 mg-3 mg(2.5 mg base)/3 mL solution for nebulization 3 ml inhalation QID PRN (Reason: shortness of breath) Qty: 90 5RF Rx Instructions: until breathing returns to target peak flow/parameters metformin 1,000 mg tablet 1,000 mg PO BID Qty: 60 3RF gabapentin 300 mg capsule 900 mg PO 3XD Qty: 270 1RF rosuvastatin 40 mg tablet 40 mg PO DAILY Qty: 30 2RF <Brian Richey MD - Last Filed: 11/04/24 15:55> Stand Alone Forms: My[facility] Info Instructions <Brian Richey MD - Last Filed: 11/04/24 15:55> Procedures ABG Interpretation ABG Results: 11/02/24 16:05 VBG pH 7.456 H VBG pCO2 41 VBG pO2 36.9 VBG HCO3 29 H <Brian Richey MD - Last Filed: 11/04/24 15:55> 11/02/24 16:05 VBG pH 7.456 H VBG pCO2 41 VBG pO2 36.9 VBG HCO3 29 H <Johnny Milton DO - Last Filed: 11/03/24 00:57>
[2024-11-02 16:16] LABS: HCO3 VBG 29 mmol/L (21-28); Lactate* 1.5 mmol/L (0.5-1.9); PCO2 VBG 41 mmHG (40-50); PO2 VBG 36.9 mmHG (25-47); pH VBG 7.456 (7.32-7.43)
[2024-11-02 16:22] LABS: Hematocrit 45.3 % (37.0-53.0); Hemoglobin* 14.8 gm/dL (13.5-17.5); Immature Granulocytes Abs Auto 0.08 K/uL (0.00-0.30); Immature Granulocytes Pct Auto 1.0 %; Mean Corpuscular HGB Conc 33 gm/dL (32-36); Mean Corpuscular Hemoglobin 28 pg (26-34); Mean Corpuscular Volume 85 fL (80-100); RDW Coefficient of Variation % 17.0 % (11.5-15.5); Red Blood Count 5.36 m/uL (4.30-5.90); White Blood Count* 7.78 K/uL (4.50-11.00)
[2024-11-02 16:45] LABS: Lymphocytes Absolute Auto 0.80 K/uL (0.90-2.90); Slide Review Reflex No
[2024-11-02 16:50] LABS: Chloride* 98 mmol/L (96-114)
[2024-11-02 16:51] LABS: Potassium* 3.7 mmol/L (3.6-5.1); Sodium* 134 mmol/L (135-149)
[2024-11-02 16:54] LABS: Anion Gap 9 mEq/L (7-15); Blood Urea Nitrogen* 21 mg/dL (7-30); Calcium* 8.8 mg/dL (8.4-10.6); Carbon Dioxide* 27 mmol/L (20-32); Creatinine* 0.8 mg/dL (0.5-1.5); Estimated Glomerular Filt Rate 99 ml/min; Glucose* 203 mg/dL (60-115)
[2024-11-02 17:02] LABS: PCR FLU A Negative PCR FLU A (Negative); PCR FLU B Negative PCR FLU B (Negative); SARS PCR* Negative SARS-CoV-2 (Negative)
[2024-11-02 17:14] LABS: NT Pro B Type NatriureticPept* 11200 pg/mL (See Note)
[2024-11-02 18:02] LABS: INR 1.47 (0.91-1.10); Prothrombin Time 18.8 Seconds
[2024-11-02 18:04] LABS: D Dimer Quantitative* 1.61 ug/ml (0.00-0.50)
--- NOTE | 2024-11-02 18:05 | CRLHL7_ITS ---
For Patients: As a result of the Century Cures Act, medical imaging exams and procedure reports are released immediately into your electronic medical record. You may view this report before your referring provider. If you have questions, please contact your health care provider. INDICATION: Shortness of breath TECHNIQUE: CT chest was acquired with 95 cc Isovue 370 intravenous IV contrast. Coronal and MIP reconstructions were performed. COMPARISON: None. FINDINGS: Lungs and pleura: Moderate bilateral pleural effusions. Bilateral ground-glass opacities minimal interlobular septal thickening probably reflect pulmonary edema. Multifocal areas of atelectasis Heart and vasculature: Heart size is normal. Thoracic aorta is normal in caliber. Enlarged main pulmonary artery. This can be seen with pulmonary arterial hypertension. No pulmonary emboli. Lymph nodes/mediastinum: No mediastinal, hilar, or axillary adenopathy. Chest wall: No masses. Upper abdomen: Free intraperitoneal air. Possible fluid in the gallbladder fossa only partially seen. Bones: T10 severe compression fracture IMPRESSION: 1. No pulmonary emboli. Moderate to large effusions bilaterally. Pulmonary edema multifocal areas of atelectasis 2. Intraperitoneal free air. If this is unknown to the patient would recommend CT abdomen and pelvis. Please note that all CT scans at this facility use dose modulation, iterative reconstruction, and/or weight-based dosing when appropriate to reduce radiation dose to as low as reasonably achievable. Dictated by Casie Thomas MD @ 11/02/2024 7:03:59 PM (Electronically Signed)
--- NOTE | 2024-11-02 19:20 | CRLHL7_ITS ---
For Patients: As a result of the Century Cures Act, medical imaging exams and procedure reports are released immediately into your electronic medical record. You may view this report before your referring provider. If you have questions, please contact your health care provider. INDICATION: Intraperitoneal free air seen on CT of the chest. COMPARISON: 04/22/2024 CT of the abdomen and pelvis TECHNIQUE: CT of the abdomen and pelvis with intravenous contrast (95 milliliters Isovue 370). FINDINGS: Severely motion degraded exam. The contrast bolus on this examination is in the angiographic phase which limits evaluation of the soft tissues. Lung bases: There is cardiomegaly. Please see separately dictated examination additional findings in the thorax. Liver: Smooth hepatic contour. No suspicious hepatic lesions are identified. Gallbladder and biliary tree: Mildly distended gallbladder. Otherwise, unremarkable CT appearance. Spleen: No splenomegaly. Pancreas: Difficult to visualize due to motion artifact, but no definite abnormality is detected. Adrenal glands: Mostly obscured due to motion artifact, however, the known right adrenal nodule is probably similar since the comparison CT on 04/22/2024. Kidneys and ureters: No hydroureteronephrosis. Heterogeneously enhancing right lower and interpolar renal mass measuring 5.2 x 3 centimeters is mildly less conspicuous since 04/22/2024 when measured in the same fashion, but this could be artifactual due to motion (). 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 Bladder: There is contrast within the bladder. Visualized reproductive organs: Unremarkable CT appearance. Gastrointestinal tract: There is colonic diverticulosis. No focal abnormally dilated loops of bowel are detected. Peritoneal cavity: The presence or absence of intraperitoneal free air in the right upper abdominal quadrant cannot be accurately assessed due to severe motion artifact. Trace pelvic free fluid. Lymph nodes: No enlarged abdominal or pelvic lymph nodes by CT size criteria. Vessels: There are atherosclerotic vascular calcifications. No abdominal aortic aneurysm. Abdominal and pelvic wall: Diffuse abdominal wall edema. Bones: There are osseous degenerative changes. There is diffuse osseous demineralization. There is a severe compression deformity of the T10 vertebral body with interval markedly worsened height loss since 04/22/2024. Advanced arthropathy again noted associated with the articulation of the L2-L4 vertebral bodies characterized by disc height loss, cortical irregularity, and subchondral sclerosis, but the presence or absence of any interval change since the prior exam cannot be accurately assessed due to motion artifact. IMPRESSION: Severely motion degraded largely nondiagnostic examination. The presence or absence of intraperitoneal free air can not be accurately assessed due to motion artifact. There is a severe compression deformity of the T10 vertebral body with interval markedly worsened height loss since 04/22/2024. 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 Please see above for additional findings. Please note that all CT scans at this facility use dose modulation, iterative reconstruction, and/or weight-based dosing when appropriate to reduce radiation dose to as low as reasonably achievable. Dictated by Gabo Contreras MD @ 11/02/2024 9:16:25 PM (Electronically Signed)
[2024-11-02] MEDS: FUROSEMIDE 10 MG/ML inj 80 MG IVP (21:35)
--- NOTE | 2024-11-02 21:41 | CRLHL7_ITS ---
For Patients: As a result of the Century Cures Act, medical imaging exams and procedure reports are released immediately into your electronic medical record. You may view this report before your referring provider. If you have questions, please contact your health care provider. INDICATION: Repeat CT for free air. TECHNIQUE: CT abdomen and pelvis without contrast. COMPARISON: CT abdomen and pelvis on November 02, 2024. FINDINGS: Lower chest: Please see same day CT chest. Stable moderate to large bilateral pleural effusions.. Liver, gallbladder and bile ducts: Unremarkable.. Gallbladder and bile ducts: No stones or inflammation. No biliary dilatation. Pancreas: Difficult to visualize secondary to motion. Spleen: Normal in size. Adrenal glands: Difficult to visualize secondary to motion. Kidneys: No suspicious filling defect in the collecting system where opacified. Please see same-day contrast-enhanced CT for detailed description of right lower and interpolar renal mass. GI tract: Stomach is decompressed and appears grossly normal. Small and large bowel is normal in caliber without obstruction. Normal appendix. Vasculature: Abdominal aorta is normal in caliber. Scattered atherosclerotic disease. Lymph nodes: Evaluation is limited secondary to motion artifact. Peritoneum/Abdominal Wall: Presence of intraperitoneal free air can not be accurately assessed due to severe motion artifact. No definite free air in the lower abdomen or pelvis. Pelvis: Trace pelvic free fluid is better evaluated on prior CT. Bones: Evaluation is limited secondary to motion artifact. No significant change compared to prior CT.. IMPRESSION: 1. Evaluation for the presence of intraperitoneal free air (notably in the upper abdomen) can not be accurately assessed due to persistent severe motion artifact. No definite free air in the lower abdomen or pelvis. If there is high clinical suspicion consider upright and lateral decubitus radiographs of the abdomen for further evaluation. 2. Otherwise, no significant interval change compared to prior contrast-enhanced CT abdomen and pelvis. Please see prior report for additional findings. Please note that all CT scans at this facility use dose modulation, iterative reconstruction, and/or weight-based dosing when appropriate to reduce radiation dose to as low as reasonably achievable. DW/Dictated by: Mendy Troy MD @ 11/02/2024 11:08:00 PM (Electronically Signed)
--- NOTE | 2024-11-02 23:26 | CRLHL7_ITS ---
For Patients: As a result of the Century Cures Act, medical imaging exams and procedure reports are released immediately into your electronic medical record. You may view this report before your referring provider. If you have questions, please contact your health care provider. INDICATION: Abdominal pain, upright and lateral decubitus TECHNIQUE: Abdomen Pelvis radiograph 4 views COMPARISON: CT 11/02/2024 FINDINGS: Bowel: The bowel gas pattern is normal without evidence of bowel obstruction. Lower pelvis is excluded. Soft tissue: No evidence of pneumoperitoneum present. Small bilateral pleural effusions are present. No suspicious calcifications noted. Pacer wires are partially visualized right atrial appendage, coronary sinus and in the left flank where it was shown to be in the right ventricle on recent CT. Bone: Severe degenerative disc disease is present with mild levoscoliosis. IMPRESSION: 1. Unremarkable appearance of the visualized abdomen. Dictated by John Cartagena MD @ 11/03/2024 12:10:53 AM Dictated by: John Cartagena MD @ 11/03/2024 00:11:01 (Electronically Signed)
--- NOTE | 2024-11-02 23:30 | PM.EN ---
Chart Event Note Chart Event Note: Called by ER - patient presented tonight with SOB. Found to be in heart failure. H/o cardiomyopathy with ICD in place, h/o DM. Chest CT obtained and there was concern for free intraperitoneal air over the liver on the right. Patient denying abdominal pain. CT abdomen with contrast non-diagnostic secondary to patient movement. Repeat scan without contrast same. Recommend X-ray as suggested by radiologist. Patient with no WBC elevation, no feer, tachycardia, or peritonitis - if X-ray normal, patient could be admitted with close observation and serial exams overnight. If concern for free air on x-ray should transfer for surgery given multiple medical co-morbidities.
[2024-11-03] VITALS (9 sets, daily range): BP systolic 122–145; BP diastolic 70–110; PULSE 89–97; RESP 17–35; O2SAT 95–97
[2024-11-03] MEDS: METFORMIN 1,000 MG TABLET 1000 MG PO (00:54)
== END 2024-11-03 02:13 | disposition short-term general hospital (02) ==
PROVIDERS: Emergency Medicine; Emergency Provider Student in an Organized Health Care Education/Training Program; PCP Internal Medicine
DX: I50.23 Acute on chronic systolic (congestive) heart failure (principal)
CPT/HCPCS: 36415; 71045; 71275; 74019; 74176; 74177; 80048; 82803; 83605; 83880; 84484; 85025; 85379; 85610; 87040; 87631; 93005; 96374; 96375; 99285; A9270; J1815; J1938; J2060; Q9967

== ENCOUNTER 2024-11-03 02:02 | Outpatient (CLI) | payer MEDICARE, BC, SELFPAY | END 2024-11-03 02:03 | disposition home or self-care (01) | LOC: AMB 11-05 15:35 | PROVIDERS: PCP Internal Medicine; Visit Provider Family Medicine | DX: I50.23 Acute on chronic systolic (congestive) heart failure (principal) | CPT/HCPCS: A0425; A0427 ==

== ENCOUNTER 2024-12-04 13:04 | Outpatient (CLI) | payer MEDICARE, BC, SELFPAY | END 2024-12-04 13:05 | disposition home or self-care (01) | PROVIDERS: PCP Internal Medicine; Visit Provider Internal Medicine | DX: G62.9 Polyneuropathy, unspecified (principal) | CPT/HCPCS: 80048; 85610 ==